=== PATIENT | male | born 2005 | race Caucasian/White ===

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

== ENCOUNTER 2023-02-21 21:48 | Emergency (ER) | payer OTHER ==
--- OUTSIDE RECORDS SUMMARY | 2023-02-21 22:28 | XMS REPORT | Continuity of Care Document ---
:2005 Author Organization [facility] t Address [address] [place] [address]. [address] [place] [address] Care Team Providers Name Role Phone Nikita Karly Primary Care Physician CHERISE MAURICE Attending Clinician Unavailable CHERISE MAURICE Attending Clinician Unavailable JOSE CHRISTOPHER Attending Clinician Unavailable BARRIE MALHOTRA Attending Clinician Unavailable YANCI MICHAEL Attending Clinician Unavailable YANCI MICHAEL Attending Clinician Unavailable Jakob Mcfarland DO Attending Clinician Christiano Priest MD Attending Clinician Barrie Plascencia Attending Clinician Yanci Michael DO Attending Clinician ARSALAN GRANT Attending Clinician Unavailable Arsalan Grant MD Attending Clinician Nichol ADEN, Chelseashalom Attending Clinician SACHIN VILLELA Attending Clinician Unavailable Sachin Vital Attending Clinician HANNAH VENTURA Attending Clinician Unavailable Hannah Ventura MD Attending Clinician Doctor Unassigned, Aline Attending Clinician Unavailable Pob, Adc Lab Main Attending Clinician Unavailable Sarbjit Kee MD Attending Clinician SURY DSOUZA Attending Clinician Unavailable Sury Shirley S Attending Clinician Jose Christopher MD S Attending Clinician CHRISTIANO PRIEST Attending Clinician Unavailable TYRON NUÑEZ Attending Clinician Unavailable Tyron Nuñez DO Attending Clinician Pankaj Garrett MD Attending Clinician PANKAJ GARRETT Attending Clinician Unavailable ANJALI WISDOM Attending Clinician Unavailable Anjali Wisdom PA-C Attending Clinician Wendy Anand Attending Clinician 1, Gal [employer] Attending Clinician Unavailable Angel Mar, Fadumo Orozco Attending Clinician Nano Cook PT Attending Clinician Unavailable Beena Ramirez MD Attending Clinician BEENA RAMIREZ Attending Clinician Unavailable Colleen VARMA Attending Clinician Unavailable Colleen Maddox Attending Clinician [facility] Attending Clinician Unavailable Parrish Rosenberg MD Attending Clinician Sheng Vasquez MD Attending Clinician SHENG VASQUEZ Attending Clinician Unavailable MG FRYE Attending Clinician Unavailable MG FRYE Attending Clinician Unavailable Yong Strauss RN, Marry Attending Clinician Unavailable PITA MALHOTRA Attending Clinician Unavailable Pita Malhotra MD Attending Clinician Lary HARE, Jose Carlos Lozada Attending Clinician Unavailable RUBEN BELCHER Attending Clinician Unavailable Ruben Mcknight Attending Clinician HANK OSHEA Attending Clinician Unavailable SHRUTHI SANTIAGO Attending Clinician Unavailable YAMIL DE LEON Attending Clinician Unavailable Estefania VIRAMONTES MD, Steve Quinn Attending Clinician [phone] ROBERT GLORIA Attending Clinician Unavailable Robert Gloria MD Attending Clinician JUNIOR LEAHY Attending Clinician Unavailable MEGHAN ROSARIO Attending Clinician Unavailable Meghan Rosario MD Attending Clinician Junior Leahy MD Attending Clinician Felix Morelos MD Attending Clinician [phone] Zana Thompson MD Attending Clinician Nurse, Namrata Moyer Attending Clinician Unavailable CHERISE MAURICE Admitting Clinician Unavailable ARSALAN GRANT Admitting Clinician Unavailable HANNAH VENTURA Admitting Clinician Unavailable Hannah Ventura MD Admitting Clinician [facility] Admitting Clinician Unavailable JOSE CHRISTOPHER Admitting Clinician Unavailable TYRON NUÑEZ Admitting Clinician Unavailable CHRISTIANO PRIEST Admitting Clinician Unavailable Colleen VARMA Admitting Clinician Unavailable MG FRYE Admitting Clinician Unavailable PITA MALHOTRA Admitting Clinician Unavailable RUBEN BELCHER Admitting Clinician Unavailable ROBERT GLORIA Admitting Clinician Unavailable MEGHAN ROSARIO Admitting Clinician Unavailable Payers Payer Name Policy Type Policy Number Effective Date Expiration Date Roderick [employer] [id number] 2022 KIDS 00:00:00 [facility] ST[facility] KIDS [id number] 2022 00:00:00 Problems Condition Condition Condition Status Onset Resolution Last Treating Co mments Source Name Details Category Date Date Treatment Clinician Date Palpitatio Palpitatio Disease Active U nivers ns ns - ity of 00:00: [place] [address] Medical Branch Syncope Syncope Disease Active Univers and and 01-28 ity of collapse collapse 00:00: [address] Abnormal Abnormal Disease Active Last [facility] liver liver 04-10 Assessmen [place] enzymes enzymes 00:00: t & Plan: Medic al [address] [place] [address] g of this note might be different [...] [facility] 25.0-29.[facility] 25.0-29.9) 00:00: t & Plan: [address] g of this note might be different from the original. Body mass index is 27.49 kg/m2. We discussed the importanc e of weight loss with a low carbohydr ate, high protein diet. 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 9-16 it y of e mood e mood 00:00: [place] dysregulat dysregulat 00 Me dical ion ion Branch disorder) disorder) 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 00:: [place] [address] Medical Branch Irritabili Irritabili Disease Active U nivers ty ty 1-11 ity of 00:00: [place] 00 Medical Branch 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 00:00: [place] arteriosus arteriosus 00 Me dical ) ) Branch Medication Medication Disease Active Overview : Univers management management 11-09 Formattin ity of 00:00: g of this 00 note Medical might be Branch different [...] (had seizure like activity) D/c strattera (stomacha ches)10 3-14 Restart Risperdal .25 mg BID and [...] to 100 mg qHS for morning groggines -15 Decrease dose of Cyprohept adine (either half [...] issues resolve with above, do not start Finndy87- 12-15 Hold zoloft; stop Buspar: possible tachycard [id number] 5 Restart Buspar 7.5 BID (Heart rate no better off it and anxiety worse) Trial reduction Risperida l to 1/2 of .25mg BID Trial Remeron 15mg HS Trial remeron 15mg [id number] 5 Raise Risperdal back to .25mg BID [...] Remeron 15mg Continue Lexapro 30mg Continue Kapvay 0.7di5-07 Increase zoloft to 50mg after school Decrease lexapro to 20mg 016 Stop Lexapro 20 mg Increase Abilify to 10 mg daily Increase Buspar to 15 mg BID Increase Kapvay to 0.1-0.2 mg QHS 02/12/16 Start amantidin e 100mg BID Stop abilify 10mg04/29 Move Risperdal 0.25 mg dose up to give at [id number] 06-24-16 Increase Risperdas l to .5mg BID 7 Increase Amantadin e to 15ml BID (not done last time) Increase Risperdal to .75 BID Reduce abilify to [id number] Amantidin e 150mg BID Increase Zoloft to [...] different from the original. ICD10 Diagnosis Term Disaster Recovery Specialist Utility Adj.dis.mi Adj.dis.mi Disease Active U nivers [...] Attention Disease Active Overview: Univers deficit deficit 16 Formattin ity o f hyperactiv hyperactiv 00:00: g of this [place] ity ity 00 note Medical disorder disorder might be Bran ch (ADHD) (ADHD) different from the original. ICD10 Diagnosis Term Disaster Recovery Specialist Utility Pain in Pain in Disease Active [...] Branch Other Other Disease Active Overview: Wil s specified specified 7- Formattin i ty of delay in delay in 00:00: g of this [place] as developmen developmen 00 note Me dical t t might be Branch different from the original. clumsy Other Other Disease Active Overview: Wil linda problems problems 01-25 Formattin ity of related [...] different from the original. ICD10 Diagnosis Term Disaster Recovery Specialist Utility Asthma Asthma Disease Active Overview: Wil s 01-18 Formattin ity of 00:00: g of this [place] 00 note Medical might be Branch different from the original. Mild persistan tICD10 Diagnosis Term Disaster Recovery Specialist Utility Allergic Allergic Disease Active Overview: Un glen rhinitis rhinitis 01-18 Formattin ity of 00:00: g of this [place] 00 note Medical might be Branch different from the original. ICD10 Diagnosis Term Disaster Recovery Specialist Utility Sleep Sleep Disease Active Overview: Univbritney s apnea apnea - Formattin ity of 00:00: g of this [place] 00 note Medical might be Branch different from the original. ICD10 Diagnosis Term Disaster Recovery Specialist Utility Sinusitis, Sinusitis, Disease Active Overview : Univers chronic chronic 10-13 Formattin ity o f 00:00: g of this [place] 00 note Medical might be Branch different from the original. ICD10 Diagnosis Term Disaster Recovery Specialist Utility Allergies, Adverse Reactions, Alerts Allergy Allergy Status Severity Reaction(s) Onset Inactive Treating Comm ents Source Name Type Date Date Clinician ADHESIVE Drug Active Rash Univers Class 5-19 ity of 00:00: [place] 00 Medical Branch Adhesive Propensi Active Rash ECG Univer s ty to 12-04 electrode ity of adverse 00:00: patches [place] reaction 00 with Medical s heart Branch monitor MONTEL[place] DRUG Active Other-Cmnt 2021-07 Univ ers AST INGREDI 1-10 ity of 00:00: [place] Medical [facility] [place] Propensi Active Other - See 2021-07 Aggressi v Univers ast ty to comments 1-10 e ity of adverse 00:00: [place] reaction 00 Medical s Branch VANCOMYC DRUG Active Low Rash Univers IN INGREDI 08-21 ity of 00:00: [place] [facility] Vancomyc Propensi Active Rash Allergy Unive rs in ty to 08-21 Type: ity of adverse 00:00: ?Medicati [place] reaction 00 onCurrent Medic al s Treatment Branch & Notes: Can have vancomyci n, but needs to be run over 2 hours with benadryl. Braxton/redn ess to face and neck; run over 2 hours [place] Allergy Active [facility]17 [facility] [place] Drug Active Other [facility] ast Allergy 8-17 reaction( [facility] 00:00: s): Medical 00 [facility]Barney Bailey on - did not tolerate ALBUTERO Allergy Active Low Palpitations 2020-[address] L 1-31 [facility] 00:[facility] Medical 00 Center ALBUTERO DRUG Active Med Palpitations 2020-0 Un glen L INGREDI 1- ity of 00:00: [place] 00 Medical Branch Albutero Drug Active Palpitations 2020-[address] [facility] Allergy 1-31 xopenex [facility] 00:[facility]: better Medical 00 Center Clindamy Propensi Active Shortness of 2018-07 Univers cecilia ty to Breath 0-07 ity of adverse 00:00: [place] reaction 00 Medical s Branch CLINDAMY DRUG Active Med Rash 2018-07 Univers CECILIA INGREDI 0-07 ity of 00:00: [place] 00 Medical Branch Predniso Propensi Active Rash Univer s ne ty to 5- ity of adverse 00:00: [place] reaction 00 Medical s Branch PREDNISO DRUG Active Rash Univers NE INGREDI 5-03 ity of 00:00: [place] 00 Medical Branch PREDNISO Allergy Active High Rash [facility] 4-20 [facility] Medical 00 Center Predniso Drug Active Rash [facility] ne Allergy 4-20 [facility] 00:[facility] Medical 00 Center SULFA Allergy Active High Anaphylaxis [facility] [...] Medica l ics) s to Branch drug Sulfa Drug Active Anaphylaxis Informed [facility] (Sulfona Allergy 8-28 by [facility] mide 00:00: parents Medical Antibiot 00 Center ics) CEFIXIME Allergy Active High Swelling [facility] 3-05 [facility] 00:[facility]: Medical 00 Center Cefixime Propensi Active Swelling Univ ers ty to 3-05 ity of adverse 00:00: [place] reaction 00 Medical s Branch CEFIXIME DRUG Active Swelling Univer s INGREDI 3-05 ity of 00:00: [place] 00 Medical Branch Cefixime Drug Active Swelling, Goes into [facility] Allergy Shortness Of 3-05 shock Ignacio es Breath 00:00: Medical 00 Center PEACH Allergy Active 2006-[address] [facility] 0-18 [facility] 00:[facility]: Medical 00 Center [place] Propensi Active Unknown - 2006-07 Unive rs ty to See comments 0-18 ity of adverse 00:00: [place] reaction 00 Medical s Branch PEACH DRUG Active Unknown-Cmnt 2006-07 Univ ers INGREDI 0-18 ity of 00:00: [place] 00 Medical Branch [place] Drug Active 2006-[address] Allergy 0-18 reaction( [facility] 00:00: s): Medical 00 Unknown - Center See comments Adhesive Propensi Active Unknown - 2006-0 Uni vers Tape ty to See comments 7-10 ity of adverse 00:00: [place] reaction 00 Medical s Branch ADHESIVE DRUG Active Unknown-Cmnt 2007-0 Un glen TAPE 7-10 ity of 00:00: [place] 00 Medical Branch ADHESIVE Allergy Active 2007-[address] TAPE 7-10 [facility] 00:[facility]: Medical 00 Center Adhesive Drug Active 2007-[address] Tape Allergy 7-10 reaction( [facility] 00:00: s): Medical 00 Unknown - Center See comments Latex Propensi Active 2004-0 Univers ty to 3-28 ity of adverse 00:00: [place] reaction 00 Medical s Branch Penicill Propensi Active 2004-0 Univer s ins ty to 3-28 ity of adverse 00:00: [place] reaction 00 Medical s Branch Pollen Propensi Active 2004-0 Univers Extracts ty to 3-28 ity of adverse 00:00: [place] reaction 00 Medical s Branch LATEX DRUG Active 2004-0 Univers INGREDI 3-28 ity of 00:00: [place] 00 Medical Branch PENICILL Drug Active 2004-0 Univers INS Class 3-28 ity of 00:00: [place] 00 Medical Branch POLLEN DRUG Active 2004-0 Univers EXTRACTS INGREDI 3-28 ity of 00:00: [place] 00 Medical Branch Penicill Propensi Active 2005-0 Univer s ins ty to 3-28 ity of adverse 00:00: [place] reaction 00 Medical s Branch PENICILL Allergy Active High Sob 2004-[address] [facility] INS 3-28 [facility] 00:00: Medical 00 Gy[place]um LATEX Allergy Active Low Rash 2004-[address] [facility] 3-28 [facility] 00:00: Medical 00 [place] Latex Drug Active Rash 2004-[address] Allergy 3-28 [facility] 00:00: Medical 00 [place] Penicill Drug Active Shortness Of 2004-[address] [facility] [address] ins Allergy Breath 3-28 shock [facility] 00:00: Medical 00 [place] Penicill Drug Active Shortness Of 2004-[address] ins Allergy Breath 3-28 shock [facility] 00:00: Medical 00 [place] Family History Family Member Diagnosis Comments Start Date Stop Date Source Natural father Depression [facility] Natural mother Asthma [facility] Natural mother Heart disease [facility] Natural mother Hypertension [facility] Social History Social Habit Start Date Stop Date Quantity Comments Source History SDOH [facility] Alcohol Comment Medical C enter Gender identity [facility]it y of [facility] Sexual orientation Univer sity of [facility] History SDOH [facility] Alcohol Std Drinks Medica l Center History SDOH [facility] Alcohol Binge Medical [address] [facility] History of Social 2023-01-18 2023-01-18 Univers ity of function 00:00:00 00:00:00 [facility] Exposure to 2022-12-10 2022-12-20 Not sure University of SARS-CoV-2 (event) 00:00:00 15:07:00 [facility] Tobacco use and 2022-04-08 2022-04-[address] Cristiane kes exposure 00:00:00 00:00:00 tobacco non-user [facility] Alcohol intake 2022-04-08 2022-04-[address] Ignacio es 00:00:00 00:00:00 non-drinker Medical Cente r (finding) History SDOH 2022-04-08 2022-04-[address] [facility] Alcohol Frequency 00:00:00 00:00:00 [facility] Sex Assigned At [address] Cristiane kes 00:00:00 00:00:00 [facility] Smoking Status Start Date Stop Date Source Never smoked tobacco [facility] Medications Ordered Filled Start Stop Current Ordering Indication Dosage Frequency Signature Comments Components Source Medication Medication Date Date Medication? Clinician (SIG) Name Name NaCl 0.9% 2022- No 1000mL at 999 Uni vers (NS) bolus 02-01 mL/hr, ity of infusion 06:45: 06:49 1,000 mL, [place] as 1,000 mL 00 :00 IV Medical Piggyback, Branch ONCE, 1 dose, On 02/01/23 at 0145, STAT iopamidol 2022- No [id number] 70mL 70 mL, U nivers (ISOVUE 02-01 Intravenou ity o f 370-500 mL) 06:45: 05:47 s, ONCE, 1 [place] injection 00 :00 dose, On Medica l 70 mL Mon Branch 02/01/23 at 0145, Routine IMITREX 5 0 Yes as needed Uni vers MG/ACTUATIO 7-13 for ity of N NASAL 15:08[facility] [address] [place] [address] Yes Apply to Un glen ne 0.1% in - affected ity o f aquaphor 15:08: area(s). [place] (COMPOUNDED 59 Medical ) ointment Branch ARIPiprazol Yes by Univer s e (ABILIFY 01-28 Intramuscu ity of [facility]) 15:08: lar route [place] as 300 mg sers 59 once every Me dical month. Branch cariprazine Yes 1{capsu Take 1 U nivers (VRAYLAR) 3 7- le} capsule by it y of mg Cap 15:08: mouth in [place] [address] the Medical morning Branch and 1 capsule in the evening. IMITREX 5 Yes as needed Uni vers MG/ACTUATIO 7- for ity of N NASAL 15:08: migraines [address] Yes Apply to Un glen ne 0.1% in 01-28 affected ity o f aquaphor 15:08: area(s). [place] (COMPOUNDED 59 Medical ) ointment Branch ARIPiprazol Yes by Team [employer] s e (ABILIFY 01-28 Intramuscu ity of [facility]) 15:08: lar route [place] as 300 mg sers 59 once every Me dical month. Branch cariprazine Yes 1{capsu Take 1 U nivers (VRAYLAR) 3 7-13 le} capsule by it y of mg Cap 15:08: mouth in [place] [address] the Medical morning Branch and 1 capsule in the evening. IMITREX 5 0 Yes as needed Uni vers MG/ACTUATIO 7-13 for ity of N NASAL 15:08: migraines [address] Yes Apply to Un glen ne 0.1% in 7-13 affected ity o f aquaphor 15:08: area(s). [place] (COMPOUNDED 59 Medical ) ointment Branch ARIPiprazol Yes by Univer s e (ABILIFY 7-13 [facility]cu [facility]y of [facility]) 15:08: lar route [place] as 300 mg sers 59 once every Me dical month. Branch cariprazine Yes 1{capsu Take 1 U nivers (VRAYLAR) 3 7-13 le} capsule by it y of mg Cap 15:08: mouth in [place] 59 the Medical morning Branch and 1 capsule in the evening. IMITREX 5 0 Yes as needed Uni vers MG/ACTUATIO 7-13 for ity of N NASAL 15:08: migraines [place] SPRY 59 Medical Branch [facility] Yes Apply to Un glen ne 0.1% in 7-13 affected ity o f aquaphor 15:08: area(s). [place] (COMPOUNDED 59 Medical ) ointment Branch ARIPiprazol Yes by Team [employer] art[employer] s e (ABILIFY 7 Intramuscu ity of [facility]) 15:08: lar route [place] as 300 mg sers 59 once every Me dical month. Branch cariprazine Yes 1{capsu Take 1 U nivers (VRAYLAR) 3 7-13 le} capsule by it y of mg Cap 15:08: mouth in [place] 59 the Medical morning Branch and 1 capsule in the evening. IMITREX 5 0 Yes as needed Uni vers MG/ACTUATIO 713 for ity of N NASAL 15:08: migraines [place] SPRY 59 Medical Branch [facility] Yes Apply to Un glen ne 0.1% in 713 affected ity o f aquaphor 15:08: area(s). [place] (COMPOUNDED 59 Medical ) ointment Branch ARIPiprazol Yes by Univer s e (ABILIFY 7 Intramuscu ity of [facility]) 15:08: lar route [place] as 300 mg sers 59 once every Me dical month. Branch cariprazine Yes 1{capsu Take 1 U nivers (VRAYLAR) 3 7-13 le} capsule by it y of mg Cap 15:08: mouth in [place] 59 the Medical morning Branch and 1 capsule in the evening. IMITREX 5 2022-0 Yes as needed Uni vers MG/ACTUATIO 713 for ity of N NASAL 15:08: migraines [place] SPRY 59 Medical Branch [facility] Yes Apply to Un glen ne 0.1% in 7-13 affected ity o f aquaphor 15:08: area(s). [place] (COMPOUNDED 59 Medical ) ointment Branch ARIPiprazol Yes by Univer s e (ABILIFY 01-28 Intramuscu ity of [employer]) 15:08: lar route [place] as 300 mg sers 59 once every Me dical month. Branch cariprazine Yes 1{capsu Take 1 U nivers (VRAYLAR) 3 7-13 le} capsule by it y of mg Cap 15:08: mouth in [place] 59 the Medical morning Branch and 1 capsule in the evening. IMITREX 5 2022-0 Yes as needed Uni vers MG/ACTUATIO 7 for ity of N NASAL 15:08: migraines [place] SPRY 59 Medical Branch [facility] Yes Apply to Un glen ne 0.1% in 01-28 affected ity o f aquaphor 15:08: area(s). [place] (COMPOUNDED 59 Medical ) ointment Branch ARIPiprazol Yes by Univer s e (ABILIFY 01-28 Intramuscu ity of [employer]) 15:08: lar route [place] as 300 mg sers 59 once every Me dical month. Branch cariprazine Yes 1{capsu Take 1 U nivers (VRAYLAR) 3 7-13 le} capsule by it y of mg Cap 15:08: mouth in [place] 59 the Medical morning Branch and 1 capsule in the evening. IMITREX 5 2022-0 Yes as needed Uni vers MG/ACTUATIO 713 for ity of N NASAL 15:08: migraines [place] SPRY 59 Medical Branch [facility] Yes Apply to Un glen ne 0.1% in 713 affected ity o f aquaphor 15:08: area(s). [place] (COMPOUNDED 59 Medical ) ointment Branch ARIPiprazol 0 Yes by Univer s e (ABILIFY 7-13 Intramuscu ity of [employer]) 15:08: lar route [place] as 300 mg sers 59 once every Me dical month. Branch cariprazine Yes 1{capsu Take 1 U nivers (VRAYLAR) 3 7-13 le} capsule by it y of mg Cap 15:08: mouth in [place] 59 the Medical morning Branch and 1 capsule in the evening. IMITREX 5 0 Yes as needed Uni vers MG/ACTUATIO 7-13 for ity of N NASAL 15:08: migraines [place] SPRY 59 Medical Branch [facility] Yes Apply to Un glen ne 0.1% in 7-13 affected ity o f aquaphor 15:08: area(s). [place] (COMPOUNDED 59 Medical ) ointment Branch ARIPiprazol Yes by Team [employer] s e (ABILIFY 7 [facility]cu [facility]y of [facility]) 15:08: lar route [place] as 300 mg sers 59 once every Me dical month. Branch cariprazine Yes 1{capsu Take 1 U nivers (VRAYLAR) 3 7-13 le} capsule by it y of mg Cap 15:08: mouth in [place] 59 the Medical morning Branch and 1 capsule in the evening. IMITREX 5 0 Yes as needed Uni vers MG/ACTUATIO 713 for ity of N NASAL 15:08[facility] Yes Apply to Un glen ne 0.1% in 713 affected ity o f aquaphor 15:08: area(s). [place] (COMPOUNDED 59 Medical ) ointment Branch ARIPiprazol Yes by Univer s e (ABILIFY 713 Intramuscu ity of [employer]) 15:08: lar route [place] as 300 mg sers 59 once every Me dical month. Branch cariprazine Yes 1{capsu Take 1 U nivers (VRAYLAR) 3 7-13 le} capsule by it y of mg Cap 15:08: mouth in [place] 59 the Medical morning Branch and 1 capsule in the evening. IMITREX 5 0 Yes as needed Uni vers MG/ACTUATIO 7-13 for ity of N NASAL 15:08: migraines [place] [address] Medical Branch [facility] Yes Apply to Un glen ne 0.1% in 7-13 affected ity o f aquaphor 15:08: area(s). [place] (COMPOUNDED 59 Medical ) ointment Branch ARIPiprazol Yes by Univer s e (ABILIFY 7 Intramuscu ity of [employer]) 15:08: lar route [place] as 300 mg sers 59 once every Me dical month. Branch cariprazine Yes 1{capsu Take 1 U nivers (VRAYLAR) 3 7-13 le} capsule by it y of mg Cap 15:08: mouth in [place] [address] the Medical morning Branch and 1 capsule in the evening. IMITREX 5 2022-0 Yes as needed Uni vers MG/ACTUATIO 7-13 for ity of N NASAL 15:08: migraines [place] [address] Medical [facility] Yes Apply to Un glen ne 0.1% in 713 affected ity o f aquaphor 15:08: area(s). [place] (COMPOUNDED 59 Medical ) ointment Branch ARIPiprazol Yes by Univer s e (ABILIFY 01-28 [facility]cu [facility]y of [facility]) 15:08: lar route [place] as 300 mg sers 59 once every Me dical month. Branch cariprazine Yes 1{capsu Take 1 U nivers (VRAYLAR) 3 7-13 le} capsule by it y of mg Cap 15:08: mouth in [place] [address] the Medical morning Branch and 1 capsule in the evening. IMITREX 5 2022-0 Yes as needed Uni vers MG/ACTUATIO 7-13 for ity of N NASAL 15:08: migraines [place] [address] Medical Branch [facility] Yes Apply to Un glen ne 0.1% in 7-13 affected ity o f aquaphor 15:08: area(s). [place] (COMPOUNDED 59 Medical ) ointment Branch ARIPiprazol Yes by Univer s e (ABILIFY 01-28 Intramuscu ity of [employer]) 15:08: lar route [place] as 300 mg sers 59 once every Me dical month. Branch cariprazine Yes 1{capsu Take 1 U nivers (VRAYLAR) 3 7-13 le} capsule by it y of mg Cap 15:08: mouth in [place] 59 the Medical morning Branch and 1 capsule in the evening. IMITREX 5 2022-0 Yes as needed Uni vers MG/ACTUATIO 7-13 for ity of N NASAL 15:08: migraines [place] SPRY 59 Medical Branch [facility] Yes Apply to Un glen ne 0.1% in 713 affected ity o f aquaphor 15:08: area(s). [place] (COMPOUNDED 59 Medical ) ointment Branch ARIPiprazol Yes by Univer s e (ABILIFY 7 [facility]cu [facility]y of [facility]) 15:08: lar route [place] as 300 mg sers 59 once every Me dical month. Branch cariprazine Yes 1{capsu Take 1 U nivers (VRAYLAR) 3 713 le} capsule by it y of mg Cap 15:08: mouth in [place] 59 the Medical morning Branch and 1 capsule in the evening. IMITREX 5 0 Yes as needed Uni vers MG/ACTUATIO 7-13 for ity of N NASAL 15:08[facility] Yes Apply to [place] ne 0.1% in 01-28 affected ity o f aquaphor 15:08: area(s). [place] (COMPOUNDED 59 Medical ) ointment Branch ARIPiprazol Yes by Univer s e (ABILIFY 7 Intramuscu ity of MAINTENA) 15:08: lar route [place] 300 mg sers 59 once every Me dical month. Branch cariprazine Yes 1{capsu Take 1 U nivers (VRAYLAR) 3 7-13 le} capsule by it y of mg Cap 15:08: mouth in [place] 59 the Medical morning Branch and 1 capsule in the evening. IMITREX 5 0 Yes as needed Uni vers MG/ACTUATIO 7-13 for ity of N NASAL 15:08: migraines [place] SPRY 59 Medical Branch triamcinolo Yes Apply to [place] 0.1% in 01-28 affected ity o f aquaphor 15:08: area(s). [place] (COMPOUNDED 59 Medical ) ointment Branch ARIPiprazol Yes by Univer s e (ABILIFY 01-28 Intramuscu ity of MAINTENA) 15:08: lar route [place] 300 mg sers 59 once every Me dical month. Branch cariprazine Yes 1{capsu Take 1 U nivers (VRAYLAR) 3 01-28 le} capsule by it y of mg Cap 15:08: mouth in [place] 59 the Medical morning Branch and 1 capsule in the evening. levETIRAcet Yes [id number] 1000mg Take 10 mL Univers am (KEPPRA) 7-13 by mouth ity of 100 mg/mL 00:00: in the [place] oral 00 morning Medical solution and 10 mL Branch in the evening. levETIRAcet Yes [id number] 1000mg Take 10 mL Univers am (KEPPRA) 7-13 by mouth ity of 100 mg/mL 00:00: in the [place] oral 00 morning Medical solution and 10 mL Branch in the evening. metoprolol Yes [id number] 25mg Take 1 U nivers succinate 7-13 tablet by ity o f XL 25 mg 24 00:00: mouth in [place] hr tablet 00 the Medical morning. Branch levETIRAcet Yes [id number] 1000mg Take 10 mL [facility] am (KEPPRA) 7-13 by mouth ity of 100 mg/mL 00:00: in the [place] oral 00 morning Medical solution and 10 mL Branch in the evening. metoprolol 0 Yes [id number] 25mg Take 1 U nivers succinate 7-13 tablet by ity o f XL 25 mg 24 00:00: mouth in [place] hr tablet 00 the Medical morning. Branch levETIRAcet 0 Yes [id number] 1000mg Take 10 mL Univers am (KEPPRA) 7-13 by mouth ity of 100 mg/mL 00:00: in the [place] oral 00 morning Medical solution and 10 mL Branch in the evening. metoprolol 3-0 Yes [id number] 25mg Take 1 U nivers succinate 7-13 tablet by ity o f XL 25 mg 24 00:00: mouth in [place] hr tablet 00 the Medical morning. Branch levETIRAcet 3-0 Yes [id number] 1000mg Take 10 mL Univers am (KEPPRA) 7-13 by mouth ity of 100 mg/mL 00:00: in the [place] oral 00 morning Medical solution and 10 mL Branch in the evening. metoprolol 3-0 Yes [id number] 25mg Take 1 U nivers succinate 7-13 tablet by ity o f XL 25 mg 24 00:00: mouth in [place] hr tablet 00 the Medical morning. Branch levETIRAcet 2022-0 Yes [id number] 1000mg Take 10 mL Univers am (KEPPRA) 7-13 by mouth ity of 100 mg/mL 00:00: in the [place] oral 00 morning Medical solution and 10 mL Branch in the evening. metoprolol 2022-0 Yes [id number] 25mg Take 1 U nivers succinate 7-13 tablet by ity o f XL 25 mg 24 00:00: mouth in [place] hr tablet 00 the Medical morning. Branch levETIRAcet 3-0 Yes [id number] 1000mg Take 10 mL Univers am (KEPPRA) 7-13 by mouth ity of 100 mg/mL 00:00: in the [place] oral 00 morning Medical solution and 10 mL Branch in the evening. metoprolol 3-0 Yes [id number] 25mg Take 1 U nivers succinate 7-13 tablet by ity o f XL 25 mg 24 00:00: mouth in [place] hr tablet 00 the Medical morning. Branch levETIRAcet 3-0 Yes [id number] 1000mg Take 10 mL Univers am (KEPPRA) 7-13 by mouth ity of 100 mg/mL 00:00: in the [place] oral 00 morning Medical solution and 10 mL Branch in the evening. metoprolol 3-0 Yes [id number] 25mg Take 1 U nivers succinate 7-13 tablet by ity o f XL 25 mg 24 00:00: mouth in [place] hr tablet 00 the Medical morning. Branch levETIRAcet 2023-0 Yes [id number] 1000mg Take 10 mL Univers am (KEPPRA) 7-13 by mouth ity of 100 mg/mL 00:00: in the [place] oral 00 morning Medical solution and 10 mL Branch in the evening. metoprolol 2022-0 Yes [id number] 25mg Take 1 U nivers succinate 7-13 tablet by ity o f XL 25 mg 24 00:00: mouth in [place] hr tablet 00 the Medical morning. Branch levETIRAcet 2022-0 Yes [id number] 1000mg Take 10 mL Univers am (KEPPRA) 7-13 by mouth ity of 100 mg/mL 00:00: in the [place] oral 00 morning Medical solution and 10 mL Branch in the evening. metoprolol 2022-0 Yes [id number] 25mg Take 1 U nivers succinate 7-13 tablet by ity o f XL 25 mg 24 00:00: mouth in [place] hr tablet 00 the Medical morning. Branch levETIRAcet 2022-0 Yes [id number] 1000mg Take 10 mL Univers am (KEPPRA) 7-13 by mouth ity of 100 mg/mL 00:00: in the [place] oral 00 morning Medical solution and 10 mL Branch in the evening. metoprolol 2022-0 Yes [id number] 25mg Take 1 U nivers succinate 7-13 tablet by ity o f XL 25 mg 24 00:00: mouth in [place] hr tablet 00 the Medical morning. Branch levETIRAcet 2022-0 Yes [id number] 1000mg Take 10 mL [facility] am (KEPPRA) 7-13 by mouth ity of 100 mg/mL 00:00: in the [place] oral 00 morning Medical solution and 10 mL Branch in the evening. metoprolol 2022-0 Yes [id number] 25mg Take 1 U nivers succinate 7-13 tablet by ity o f XL 25 mg 24 00:00: mouth in [place] hr tablet 00 the Medical morning. Branch levETIRAcet 2022-0 Yes [id number] 1000mg Take 10 mL [facility] am (KEPPRA) 7-13 by mouth ity of 100 mg/mL 00:00: in the [place] oral 00 morning Medical solution and 10 mL Branch in the evening. metoprolol 3-0 Yes [id number] 25mg Take 1 U nivers succinate 7-13 tablet by ity o f XL 25 mg 24 00:00: mouth in [place] hr tablet 00 the Medical morning. Branch levETIRAcet 2022-0 Yes [id number] 1000mg Take 10 mL Univers am (KEPPRA) 7-13 by mouth ity of 100 mg/mL 00:00: in the [place] oral 00 morning Medical solution and 10 mL Branch in the evening. metoprolol 2022-0 Yes [id number] 25mg Take 1 U nivers succinate 7-13 tablet by ity o f XL 25 mg 24 00:00: mouth in [place] hr tablet 00 the Medical morning. Branch levETIRAcet 2022-0 Yes [id number] 1000mg Take 10 mL Univers am (KEPPRA) 7-13 by mouth ity of 100 mg/mL 00:00: in the [place] oral 00 morning Medical solution and 10 mL Branch in the evening. metoprolol 2022-0 Yes [id number] 25mg Take 1 U nivers succinate 7-13 tablet by ity o f XL 25 mg 24 00:00: mouth in [place] hr tablet 00 the Medical morning. Branch levETIRAcet 2022-0 Yes [id number] 1000mg Take 10 mL Univers am (KEPPRA) 7-13 by mouth ity of 100 mg/mL 00:00: in the [place] oral 00 morning Medical solution and 10 mL Branch in the evening. metoprolol 2022-0 Yes [id number] 25mg Take 1 U nivers succinate 7-13 tablet by ity o f XL 25 mg 24 00:00: mouth in [place] hr tablet 00 the Medical morning. Branch levETIRAcet 2022-0 Yes [id number] 1000mg Take 10 mL Univers am (KEPPRA) 7-13 by mouth ity of 100 mg/mL 00:00: in the [place] oral 00 morning Medical solution and 10 mL Branch in the evening. metoprolol 2022-0 Yes [id number] 25mg Take 1 U nivers succinate 7-13 tablet by ity o f XL 25 mg 24 00:00: mouth in [place] hr tablet 00 the Medical morning. Branch ketorolac 2022-0 2022- No 60mg 60 mg, Unive rs (TORADOL) 01-21 07-06 Intramuscu ity of injection 04:00: 03:39 lar, ONCE, [place] 60 mg 00 :00 1 dose, On Medical Wed01/20/23 Branch at 2300, LESLIE HYDROcodone 2022-0 2022- No 1{tbl} 1 tablet, Univers -acetaminop 01-18 Oral, ity of hen (NORCO 15:00: 17:33 ONCE, 1 [place] 5) 5-325 mg 00 :00 dose, On Medi cherie tablet 1 Wed01/18/23 Branc h tablet at 1000, Routine, PACU HYDROcodone 2022-0 2023- No 1{tbl} 1 tablet, Univers -acetaminop 01-18 Oral, ity of hen (NORCO 15:00: 17:33 ONCE, 1 [place] as 5) 5-325 mg 00 :00 dose, On Medi cherie tablet 1 Wed01/18/23 Branc h tablet at 1000, Routine, PACU HYDROmorphO 2022-0 Yes .2mg 0.2 mg, Uni vers ne 01-18 Slow IV ity of (DILAUDID) 14:56: Push, [place] injection 40 Q5MIN PRN, Medi cherie 0.2 mg 10 doses, Branch Starting on Wed01/18/23 at 0956, Until Discontinu ed, Routine, Pain (scale 7-10), PACU
Us e approved by (Faculty): PACU USE -ANESTHESI A SERVICE-HY DROMORPHON E INJECTIONS FENTanyl PF 2022-0 Yes 25ug 25 mcg, Uni vers (SUBLIMAZE 01-18 Slow IV ity of (PF)) 14:56: Push, [place] injection 40 Q5MIN PRN, Medi cherie 25 mcg 4 doses, Branch Starting on Wed01/18/23 at 0956, Until Discontinu ed, Routine, Pain (scale 4-6), PACU ondansetron 2022-0 Yes 4mg 4 mg, Slow Univers (ZOFRAN 01-18 IV Push, ity of (PF)) 14:56: PRN, 1 [place] injection 4 40 dose, Medical mg Starting Branch on Wed01/18/23 at 0956, Until Discontinu ed, Routine, Nausea and Vomiting (N/V), PACU HYDROmorphO 2022-0 2022- No .2mg 0.2 mg, [place] ne 01-18 Slow IV ity of (DILAUDID) 14:56: 20:17 Push, [place] injection 40 :01 Q5MIN PRN, Medi cherie 0.2 mg 10 doses, Branch Starting on Wed01/18/23 at 0956, Until Wed01/18/23 at 1517, Routine, Pain (scale 7-10), PACU
Us e approved by (Faculty): PACU USE -ANESTHESI A SERVICE-HY DROMORPHON E INJECTIONS FENTanyl PF 2022- No 25ug 25 mcg, Un [place]en (SUBLIMAZE 01-18 Slow IV ity o f (PF)) 14:56: 20:17 Push, [place] injection 40 :01 Q5MIN PRN, Medi cherie 25 mcg 4 doses, Branch Starting on Wed01/18/23 at 0956, Until Wed01/18/23 at 1517, Routine, Pain (scale 4-6), PACU ondansetron 2022- No 4mg 4 mg, Slow Univers (ZOFRAN 01-18 IV Push, ity of (PF)) 14:56: 20:17 PRN, 1 [place] injection 4 40 :01 dose, Medical mg Starting Branch on Wed01/18/23 at 0956, Until Wed01/18/23 at 1517, Routine, Nausea and Vomiting (N/V), PACU IMITREX 5 Yes as needed Uni vers MG/ACTUATIO 01-18 for ity of N NASAL 13:17: migraines [place] SPRY 01 Medical Branch triamcinolo Yes Apply to [place] 0.1% in 01-18 affected ity o f aquaphor 13:17: area(s). [place] (COMPOUNDED Medical ) ointment Branch ARIPiprazol Yes by Univbritney s e (ABILIFY 01-18 Intramuscu ity of MAINTENA) 13:17: lar route [place] as 300 mg sers once every Me dical month. Branch cariprazine Yes 1{capsu Take 1 U nivers (VRAYLAR) 3 01-18 le} capsule by it y of mg Cap 13:17: mouth in [place] the Medical morning Branch and 1 capsule in the evening. IMITREX 5 0 Yes as needed Uni vers MG/ACTUATIO 7 for ity of N NASAL 13:17[facility] Yes Apply to [place] 0.1% in 01-18 affected ity o f aquaphor 13:17: area(s). [place] (COMPOUNDED Medical ) ointment Branch ARIPiprazol Yes by [employer] e (ABILIFY 01-18 Intramuscu ity of [facility]) 13:17: lar route [place] as 300 mg sers 01 once every Me dical month. Branch cariprazine Yes 1{capsu Take 1 U nivers (VRAYLAR) 3 7-03 le} capsule by it y of mg Cap 13:17: mouth in [place] the Medical morning Branch and 1 capsule in the evening. IMITREX 5 Yes as needed Uni vers MG/ACTUATIO 01-18 for ity of N NASAL 13:17: [facility] Yes Apply to [place] 0.1% in 01-18 affected ity o f aquaphor 13:17: area(s). [place] (COMPOUNDED Medical ) ointment Branch ARIPiprazol Yes by [employer] (ABILIFY 01-18 Intramuscu ity of [facility]) 13:17: lar route [place] as 300 mg sers 01 once every Me dical month. Branch cariprazine Yes 1{capsu Take 1 U nivers (VRAYLAR) 3 7-03 le} capsule by it y of mg Cap 13:17: mouth in [place] the Medical morning Branch and 1 capsule in the evening. IMITREX 5 Yes as needed Uni vers MG/ACTUATIO 7 for ity of N NASAL 13:17: [facility] Yes Apply to [place] 0.1% in 01-18 affected ity o f aquaphor 13:17: area(s). [place] (COMPOUNDED Medical ) ointment Branch ARIPiprazol Yes by Univer s e (ABILIFY 01-18 Intramuscu ity of MAINTENA) 13:17: lar route [place] as 300 mg sers 01 once every Me dical month. Branch cariprazine Yes 1{capsu Take 1 U nivers (VRAYLAR) 3 7- le} capsule by it y of mg Cap 13:17: mouth in [place] the Medical morning Branch and 1 capsule in the evening. IMITREX 5 Yes as needed Uni vers MG/ACTUATIO 01-18 for ity of N NASAL 13:17: migraines [place] [address] Medical Branch [facility] Yes Apply to [place] 0.1% in 01-18 affected ity o f aquaphor 13:17: area(s). [place] (COMPOUNDED Medical ) ointment Branch ARIPiprazol Yes by Univer s e (ABILIFY 01-18 [facility]) 13:17: lar route [place] 300 mg sers 01 once every Me dical month. Branch cariprazine Yes 1{capsu Take 1 U nivers (VRAYLAR) 3 01-18 le} capsule by it y of mg Cap 13:17: mouth in [place] the Medical morning Branch and 1 capsule in the evening. IMITREX 5 Yes as needed Uni vers MG/ACTUATIO 01-18 for ity of N NASAL 13:17: migraines [address] Yes Apply to [place] 0.1% in 01-18 affected ity o f aquaphor 13:17: area(s). [place] (COMPOUNDED Medical ) ointment Branch ARIPiprazol Yes by Univer s e (ABILIFY 01-18 [facility]) 13:17: lar route [place] as 300 mg sers 01 once every Me dical month. Branch IMITREX 5 Yes as needed Uni vers MG/ACTUATIO 01-18 for ity of N NASAL 13:17: [facility] Yes Apply to [place] 0.1% in 01-18 affected ity o f aquaphor 13:17: area(s). [place] (COMPOUNDED Medical ) ointment Branch ARIPiprazol Yes by Univer s e (ABILIFY 01-18 Intramuscu ity of [facility]) 13:17: lar route [place] 300 mg sers 01 once every Me dical month. Branch cariprazine Yes 1{capsu Take 1 U nivers (VRAYLAR) 3 7-03 le} capsule by it y of mg Cap 13:17: mouth in [place] the Medical morning Branch and 1 capsule in the evening. IMITREX 5 Yes as needed Uni vers MG/ACTUATIO 01-18 for ity of N NASAL 13:17: migraines [place] [address] Medical Branch [facility] Yes Apply to [place] 0.1% in 01-18 affected ity o f aquaphor 13:17: area(s). [place] (COMPOUNDED Medical ) ointment Branch ARIPiprazol Yes by [employer] (ABILIFY 01-18 Intramuscu ity of [facility]) 13:17: lar route [place] 300 mg sers 01 once every Me dical month. Branch cariprazine Yes 1{capsu Take 1 U nivers (VRAYLAR) 3 7- le} capsule by it y of mg Cap 13:17: mouth in [place] the Medical morning Branch and 1 capsule in the evening. traMADoL 50 2022- Yes [id number] 50mg Take 1 Uni vers mg tablet 01-18 tablet by ity of 00:00: 04:59 mouth [place] 00 :00 every 6 Medical (six) Branch hours as needed for Pain (scale 4-6) or Pain (scale 7-10) for up to 7 days. Indication s: acute pain traMADoL 50 0 2022- Yes [id number] 50mg Take 1 Uni vers mg tablet 01-18 tablet by ity of 00:00: 04:59 mouth [place] 00 :00 every 6 Medical (six) Branch hours as needed for Pain (scale 4-6) or Pain (scale 7-10) for up to 7 days. Indication s: acute pain traMADoL 50 2022- Yes [id number] 50mg Take 1 Uni vers mg tablet 01-18 07-11 tablet by ity of 00:00: 04:59 mouth [place] 00 :00 every 6 Medical (six) Branch hours as needed for Pain (scale 4-6) or Pain (scale 7-10) for up to 7 days. Indication s: acute pain IMITREX 5 Yes as needed Uni vers MG/ACTUATIO 6-29 for ity of N NASAL 12:08: migraines [address] Yes Apply to [place] 0.1% in 01-14 affected ity o f aquaphor 12:08: area(s). [place] ([address] ) ointment Branch ARIPiprazol Yes by [employer] (ABILIFY 01-14 Intramuscu ity of [facility]) 12:08: lar route [place] 300 mg sers 17 once every Me dical month. Branch cariprazine Yes 1{capsu Take 1 U nivers (VRAYLAR) 3 01-14 le} capsule by it y of mg Cap 12:08: mouth in [place] [address] the Medical morning Branch and 1 capsule in the evening. IMITREX 5 Yes as needed Uni vers MG/ACTUATIO 6 for ity of N NASAL 12:08: migraines [address] Yes Apply to [place] 0.1% in 01-14 affected ity o f aquaphor 12:08: area(s). [place] ([address]OUND[address] ) ointment Branch ARIPiprazol Yes by [email or web address] s e (ABILIFY 01-14 [facility]cu [facility]y of [facility]) 12:08: lar route [place] 300 mg sers 17 once every Me dical month. Branch cariprazine Yes 1{capsu Take 1 U nivers (VRAYLAR) 3 6-29 le} capsule by it y of mg Cap 12:08: mouth in [place] [address] the Medical morning Branch and 1 capsule in the evening. IMITREX 5 0 Yes as needed Uni vers MG/ACTUATIO 6-29 for ity of N NASAL 12:08: migraines [place] SPRY 17 Medical Branch triamcinolo Yes Apply to [place] 0.1% in 01-14 affected ity o f aquaphor 12:08: area(s). [place] (COMPOUNDED 17 Medical ) ointment Branch ARIPiprazol Yes by Univer s e (ABILIFY 01-14 Intramuscu ity of [employer]TENA) 12:08: lar route [place] 300 mg sers 17 once every Me dical month. Branch cariprazine Yes 1{capsu Take 1 U nivers (VRAYLAR) 3 01-14 le} capsule by it y of mg Cap 12:08: mouth in [place] 17 the Medical morning Branch and 1 capsule in the evening. traMADoL 50 0 Yes 50mg Take 1 Univ ers mg tablet 6-23 tablet by ity o f 00:00: mouth as [place] 00 needed. Medical Branch traMADoL 50 2022-0 Yes 50mg Take 1 Univ ers mg tablet 6-23 tablet by ity o f 00:00: mouth as [place] 00 needed. Medical Branch traMADoL 50 0 Yes 50mg Take 1 Univ ers mg tablet 6-23 tablet by ity o f 00:00: mouth as [place] 00 needed. Medical Branch traMADoL 50 2022-0 Yes 50mg Take 1 Univ ers mg tablet 6-23 tablet by ity o f 00:00: mouth as [place] 00 needed. Medical Branch traMADoL 50 2022-0 Yes 50mg Take 1 Univ ers mg tablet 6-23 tablet by ity o f 00:00: mouth as [place] 00 needed. Medical Branch traMADoL 50 2022-0 Yes 50mg Take 1 Univ ers mg tablet 6-23 tablet by ity o f 00:00: mouth as [place] 00 needed. Medical Branch traMADoL 50 2022-0 Yes 50mg Take 1 Univ ers mg tablet 6-23 tablet by ity o f 00:00: mouth as [place] 00 needed. Medical Branch traMADoL 50 2022-0 Yes 50mg Take 1 Univ ers mg tablet 6-23 tablet by ity o f 00:00: mouth as [place] 00 needed. Medical Branch traMADoL 50 2022-0 Yes 50mg Take 1 Univ ers mg tablet 6-23 tablet by ity o f 00:00: mouth as [place] 00 needed. Medical Branch traMADoL 50 3-0 Yes 50mg Take 1 Univ ers mg tablet 6-23 tablet by ity o f 00:00: mouth as [place] 00 needed. Medical Branch traMADoL 50 3-0 Yes 50mg Take 1 Univ ers mg tablet 6-23 tablet by ity o f 00:00: mouth as [place] 00 needed. Medical Branch traMADoL 50 3-0 Yes 50mg Take 1 Univ ers mg tablet 6-23 tablet by ity o f 00:00: mouth as [place] 00 needed. Medical Branch traMADoL 50 3-0 Yes 50mg Take 1 Univ ers mg tablet 6-23 tablet by ity o f 00:00: mouth as [place] 00 needed. Medical Branch traMADoL 50 3-0 Yes 50mg Take 1 Univ ers mg tablet 6-23 tablet by ity o f 00:00: mouth as [place] 00 needed. Medical Branch traMADoL 50 3-0 Yes 50mg Take 1 Univ ers mg tablet 6-23 tablet by ity o f 00:00: mouth as [place] 00 needed. Medical Branch traMADoL 50 2022-0 Yes 50mg Take 1 Univ ers mg tablet 6-23 tablet by ity o f 00:00: mouth as [place] 00 needed. Medical Branch traMADoL 50 3-0 Yes 50mg Take 1 Univ ers mg tablet 6-23 tablet by ity o f 00:00: mouth as [place] 00 needed. Medical Branch traMADoL 50 3-0 Yes 50mg Take 1 Univ ers mg tablet 6-23 tablet by ity o f 00:00: mouth as [place] 00 needed. Medical Branch traMADoL 50 3-0 Yes 50mg Take 1 Univ ers mg tablet 6-23 tablet by ity o f 00:00: mouth as [place] 00 needed. Medical Branch traMADoL 50 3-0 Yes 50mg Take 1 Univ ers mg tablet 6-23 tablet by ity o f 00:00: mouth as [place] 00 needed. Medical Branch traMADoL 50 3-0 Yes 50mg Take 1 Univ ers mg tablet 6-23 tablet by ity o f 00:00: mouth as [place] 00 needed. Medical Branch traMADoL 50 3-0 Yes 50mg Take 1 Univ ers mg tablet 6-23 tablet by ity o f 00:00: mouth as [place] 00 needed. Medical Branch traMADoL 50 3-0 Yes 50mg Take 1 Univ ers mg tablet 6-23 tablet by ity o f 00:00: mouth as [place] 00 needed. Medical Branch traMADoL 50 3-0 Yes 50mg Take 1 Univ ers mg tablet 6-23 tablet by ity o f 00:00: mouth as [place] 00 needed. Medical Branch acetaminoph 3-0 Yes 1{tbl} Take 1 [place] en-codeine 6-20 tablet by ity of 300-30 mg 00:00: mouth [place] tablet 00 needed. Medical Branch acetaminoph 3-0 Yes 1{tbl} Take 1 [place] en-codeine 6-20 tablet by ity of 300-30 mg 00:00: mouth [place] tablet 00 needed. Medical Branch acetaminoph 3-0 Yes 1{tbl} Take 1 [place] en-codeine 6-20 tablet by ity of 300-30 mg 00:00: mouth [place] tablet 00 needed. Medical Branch acetaminoph 3-0 Yes 1{tbl} Take 1 [place] en-codeine 6-20 tablet by ity of 300-30 mg 00:00: mouth [place] tablet 00 needed. Medical Branch acetaminoph 3-0 Yes 1{tbl} Take 1 [place] en-codeine 6-20 tablet by ity of 300-30 mg 00:00: mouth [place] tablet 00 needed. Medical Branch acetaminoph 3-0 Yes 1{tbl} Take 1 [place] en-codeine 6-20 tablet by ity of 300-30 mg 00:00: mouth [place] tablet 00 needed. Medical Branch acetaminoph 3-0 Yes 1{tbl} Take 1 [place] en-codeine 6-20 tablet by ity of 300-30 mg 00:00: mouth [place] tablet 00 needed. Medical Branch acetaminoph 2023-0 Yes 1{tbl} Take 1 [place] en-codeine 6-20 tablet by ity of 300-30 mg 00:00: mouth [place] tablet 00 needed. Medical Branch acetaminoph 3-0 Yes 1{tbl} Take 1 [place] en-codeine 6-20 tablet by ity of 300-30 mg 00:00: mouth [place] tablet 00 needed. Medical Branch acetaminoph 2023-0 Yes 1{tbl} Take 1 [place] en-codeine 6-20 tablet by ity of 300-30 mg 00:00: mouth [place] tablet 00 needed. Medical Branch acetaminoph 2023-0 Yes 1{tbl} Take 1 [place] en-codeine 6-20 tablet by ity of 300-30 mg 00:00: mouth [place] tablet 00 needed. Medical Branch acetaminoph 2023-0 Yes 1{tbl} Take 1 [place] en-codeine 6-20 tablet by ity of 300-30 mg 00:00: mouth [place] tablet 00 needed. Medical Branch acetaminoph 3-0 Yes 1{tbl} Take 1 [place] en-codeine 6-20 tablet by ity of 300-30 mg 00:00: mouth [place] tablet 00 needed. Medical Branch acetaminoph 3-0 Yes 1{tbl} Take 1 [place] en-codeine 6-20 tablet by ity of 300-30 mg 00:00: mouth [place] tablet 00 needed. Medical Branch acetaminoph 3-0 Yes 1{tbl} Take 1 [place] en-codeine 6-20 tablet by ity of 300-30 mg 00:00: mouth [place] tablet 00 needed. Medical Branch acetaminoph 3-0 Yes 1{tbl} Take 1 [place] en-codeine 6-20 tablet by ity of 300-30 mg 00:00: mouth [place] tablet 00 needed. Medical Branch acetaminoph 2023-0 Yes 1{tbl} Take 1 [place] en-codeine 6-20 tablet by ity of 300-30 mg 00:00: mouth [place] tablet 00 needed. Medical Branch acetaminoph 2023-0 Yes 1{tbl} Take 1 [place] en-codeine 6-20 tablet by ity of 300-30 mg 00:00: mouth [place] tablet 00 needed. Medical Branch acetaminoph 2023-0 Yes 1{tbl} Take 1 [place] en-codeine 6-20 tablet by ity of 300-30 mg 00:00: mouth [place] tablet 00 needed. Medical Branch acetaminoph 2023-0 Yes 1{tbl} Take 1 [place] en-codeine 6-20 tablet by ity of 300-30 mg 00:00: mouth [place] tablet 00 needed. Medical Branch acetaminoph 2022-0 Yes 1{tbl} Take 1 [place] en-codeine 6-20 tablet by ity of 300-30 mg 00:00: mouth [place] tablet 00 needed. Medical Branch acetaminoph 2022-0 Yes 1{tbl} Take 1 [place] en-codeine 6-20 tablet by ity of 300-30 mg 00:00: mouth [place] tablet 00 needed. Medical Branch acetaminoph 2022-0 Yes 1{tbl} Take 1 [place] en-codeine 6-20 tablet by ity of 300-30 mg 00:00: mouth [place] tablet 00 needed. Medical Branch acetaminoph Yes 1{tbl} Take 1 [place] en-codeine 6-20 tablet by ity of 300-30 mg 00:00: mouth [place] tablet 00 needed. Medical Branch hydrocortis Yes 1{appli Apply 1 [facility] one 2.5 % 6-16 cator} Applicator it y of cream 00:00: to area(s) [place] [address] as needed. Medical Branch nystatin Yes 1{dose} Apply 1 Uni vers 100,000 6-16 Dose to ity of unit/gram 00:00: area(s) in [facility] the Medical morning. Branch terbinafine Yes 1{dose} Apply 1 Univers HCL 1 % 6-16 Dose to ity of cream 00:00: area(s) in [place] the Medical morning. Branch hydrocortis Yes 1{appli Apply 1 Univers one 2.5 % 6-16 cator} Applicator it y of cream 00:00: to area(s) [place] [address] as needed. Medical Branch nystatin Yes 1{dose} Apply 1 Uni vers 100,000 6-16 Dose to ity of unit/gram 00:00: area(s) in [facility] the Medical morning. Branch terbinafine 2022- Yes 1{dose} Apply 1 Univers HCL 1 % 6-16 Dose to ity of cream 00:00: area(s) in [place] 00 the Medical morning. Branch hydrocortis 2022-0 Yes 1{appli Apply 1 Univers one 2.5 % 6-16 cator} Applicator it y of cream 00:00: to area(s) [place] 00 as needed. Medical Branch nystatin 2022-0 Yes 1{dose} Apply 1 [facility] vers 100,000 6-16 Dose to ity of unit/gram 00:00: area(s) in [place] cream 00 the Medical morning. Branch terbinafine 2022-0 Yes 1{dose} Apply 1 [facility] HCL 1 % 6-16 Dose to ity of cream 00:00: area(s) in [place] 00 the Medical morning. Branch hydrocortis 2022-0 Yes 1{appli Apply 1 [facility] one 2.5 % 6-16 cator} Applicator it y of cream 00:00: to area(s) [place] [address] as needed. Medical Branch nystatin 2022-0 Yes 1{dose} Apply 1 [facility] vers 100,000 6-16 Dose to ity of unit/gram 00:00: area(s) in [facility] cream 00 the Medical morning. Branch terbinafine 2022-0 Yes 1{dose} Apply 1 [facility] HCL 1 % 6-16 Dose to ity of cream 00:00: area(s) in [place] 00 the Medical morning. Branch hydrocortis 2022-0 Yes 1{appli Apply 1 [facility] one 2.5 % 6-16 cator} Applicator it y of cream 00:00: to area(s) [place] [address] as needed. Medical Branch nystatin 2022-0 Yes 1{dose} Apply 1 [facility] vers 100,000 6-16 Dose to ity of unit/gram 00:00: area(s) [place] cream 00 the Medical morning. Branch terbinafine 2022-0 Yes 1{dose} Apply 1 [facility] HCL 1 % 6-16 Dose to ity of cream 00:00: area(s) in [place] 00 the Medical morning. Branch hydrocortis 2022-0 Yes 1{appli Apply 1 [facility] one 2.5 % 6-16 cator} Applicator it y of cream 00:00: to area(s) [place] [address] as needed. Medical Branch nystatin 2022-0 Yes 1{dose} Apply 1 [facility] vers 100,000 6-16 Dose to ity of unit/gram 00:00: area(s) in [place] cream 00 the Medical morning. Branch terbinafine 2022-0 Yes 1{dose} Apply 1 [facility] HCL 1 % 6-16 Dose to ity of cream 00:00: area(s) in [place] 00 the Medical morning. Branch hydrocortis 2022-0 Yes 1{appli Apply 1 [facility] one 2.5 % 6-16 cator} Applicator it y of cream 00:00: to area(s) [place] [address] as needed. Medical Branch nystatin 3-0 Yes 1{dose} Apply 1 [facility] vers 100,000 6-16 Dose to ity of unit/gram 00:00: area(s) in [place] cream 00 the Medical morning. Branch terbinafine 2022-0 Yes 1{dose} Apply 1 [facility] HCL 1 % 6-16 Dose to ity of cream 00:00: area(s) in [place] 00 the Medical morning. Branch hydrocortis 2022-0 Yes 1{appli Apply 1 [facility] one 2.5 % 6-16 cator} Applicator it y of cream 00:00: to area(s) [place] [address] as needed. Medical Branch nystatin 2022-0 Yes 1{dose} Apply 1 [facility] vers 100,000 6-16 Dose to ity of unit/gram 00:00: area(s[place] cream 00 the Medical morning. Branch terbinafine 2022-0 Yes 1{dose} Apply 1 [facility] HCL 1 % 6-16 Dose to ity of cream 00:00: area(s) in [place] 00 the Medical morning. Branch hydrocortis 3-0 Yes 1{appli Apply 1 [facility] one 2.5 % 6-16 cator} Applicator it y of cream 00:00: to area(s) [place] [address] as needed. Medical Branch nystatin 3-0 Yes 1{dose} Apply 1 [facility] vers 100,000 6-16 Dose to ity of unit/gram 00:00: area(s) in [place] cream 00 the Medical morning. Branch terbinafine 3-0 Yes 1{dose} Apply 1 [facility] HCL 1 % 6-16 Dose to ity of cream 00:00: area(s) in [place] 00 the Medical morning. Branch hydrocortis 2023-0 Yes 1{appli Apply 1 [facility] one 2.5 % 6-16 cator} Applicator it y of cream 00:00: to area(s) [place] [address] as needed. Medical Branch nystatin 2022-0 Yes 1{dose} Apply 1 [facility] vers 100,000 6-16 Dose to ity of unit/gram 00:00: area(s) in [facility] 00 the Medical morning. Branch terbinafine 2022-0 Yes 1{dose} Apply 1 [facility] HCL 1 % 6-16 Dose to ity of cream 00:00: area(s) in [place] [address] the Medical morning. Branch hydrocortis 2022- Yes 1{appli Apply 1 [facility] one 2.5 % 6-16 cator} Applicator it y of cream 00:00: to area(s) [place] [address] as needed. Medical Branch nystatin 2022- Yes 1{dose} Apply 1 [facility] vers 100,000 6-16 Dose to ity of unit/gram 00:00: area(s) in [facility] 00 the Medical morning. Branch terbinafine 2022- Yes 1{dose} Apply 1 [facility] HCL 1 % 6-16 Dose to ity of cream 00:00: area(s) in [place] [address] the Medical morning. Branch hydrocortis 2022-0 Yes 1{appli Apply 1 [facility] one 2.5 % 6-16 cator} Applicator it y of cream 00:00: to area(s) [place] [address] as needed. Medical Branch nystatin 2022-0 Yes 1{dose} Apply 1 [facility] vers 100,000 6-16 Dose to ity of unit/gram 00:00: area(s) in [facility] cream 00 the Medical morning. Branch terbinafine 2022-0 Yes 1{dose} Apply 1 [facility] HCL 1 % 6-16 Dose to ity of cream 00:00: area(s) in [place] 00 the Medical morning. Branch hydrocortis 2022-0 Yes 1{appli Apply 1 [facility] one 2.5 % 6-16 cator} Applicator it y of cream 00:00: to area(s) [place] [address] as needed. Medical Branch nystatin 2022-0 Yes 1{dose} Apply 1 [facility] vers 100,000 6-16 Dose to ity of unit/gram 00:00: area(s) in [facility] cream 00 the Medical morning. Branch terbinafine 2022-0 Yes 1{dose} Apply 1 [facility] HCL 1 % 6-16 Dose to ity of cream 00:00: area(s) in [place] 00 the Medical morning. Branch hydrocortis 2022-0 Yes 1{appli Apply 1 [facility] one 2.5 % 6-16 cator} Applicator it y of cream 00:00: to area(s) [place] 00 as needed. Medical Branch nystatin 2022-0 Yes 1{dose} Apply 1 [facility] vers 100,000 6-16 Dose to ity of unit/gram 00:00: area(s) in [place] cream 00 the Medical morning. Branch terbinafine 2022-0 Yes 1{dose} Apply 1 [facility] HCL 1 % 6-16 Dose to ity of cream 00:00: area(s) in [place] 00 the Medical morning. Branch hydrocortis 2022-0 Yes 1{appli Apply 1 [facility] one 2.5 % 6-16 cator} Applicator it y of cream 00:00: to area(s) [place] [address] as needed. Medical Branch nystatin 2022-0 Yes 1{dose} Apply 1 [facility] vers 100,000 6-16 Dose to ity of unit/gram 00:00: area(s) in [place] cream 00 the Medical morning. Branch terbinafine 2022-0 Yes 1{dose} Apply 1 [facility] HCL 1 % 6-16 Dose to ity of cream 00:00: area(s) in [place] 00 the Medical morning. Branch hydrocortis 2022-0 Yes 1{appli Apply 1 [facility] one 2.5 % 6-16 cator} Applicator it y of cream 00:00: to area(s) [place] [address] as needed. Medical Branch nystatin 2022-0 Yes 1{dose} Apply 1 [facility] vers 100,000 6-16 Dose to ity of unit/gram 00:00: area(s) in [place] cream 00 the Medical morning. Branch terbinafine 2022-0 Yes 1{dose} Apply 1 [facility] HCL 1 % 6-16 Dose to ity of cream 00:00: area(s) in [place] 00 the Medical morning. Branch hydrocortis 2022-0 Yes 1{appli Apply 1 [facility] one 2.5 % 6-16 cator} Applicator it y of cream 00:00: to area(s) [place] [address] as needed. Medical Branch nystatin 3-0 Yes 1{dose} Apply 1 [facility] vers 100,000 6-16 Dose to ity of unit/gram 00:00: area(s) in [place] cream 00 the Medical morning. Branch terbinafine 3-0 Yes 1{dose} Apply 1 [facility] HCL 1 % 6-16 Dose to ity of cream 00:00: area(s) in [place] 00 the Medical morning. Branch hydrocortis 2022-0 Yes 1{appli Apply 1 [facility] one 2.5 % 6-16 cator} Applicator it y of cream 00:00: to area(s) [place] [address] as needed. Medical Branch nystatin 2022-0 Yes 1{dose} Apply 1 [facility] vers 100,000 6-16 Dose to ity of unit/gram 00:00: area(s) in [facility] cream 00 the Medical morning. Branch terbinafine 2022-0 Yes 1{dose} Apply 1 [facility] HCL 1 % 6-16 Dose to ity of cream 00:00: area(s) in [place] 00 the Medical morning. Branch hydrocortis 2022-0 Yes 1{appli Apply 1 [facility] one 2.5 % 6-16 cator} Applicator it y of cream 00:00: to area(s) [place] [address] as needed. Medical Branch nystatin 2022-0 Yes 1{dose} Apply 1 [facility] vers 100,000 6-16 Dose to ity of unit/gram 00:00: area(s) in [place] cream 00 the Medical morning. Branch terbinafine 3-0 Yes 1{dose} Apply 1 [facility] HCL 1 % 6-16 Dose to ity of cream 00:00: area(s) in [place] 00 the Medical morning. Branch hydrocortis 3-0 Yes 1{appli Apply 1 [facility] one 2.5 % 6-16 cator} Applicator it y of cream 00:00: to area(s) [place] [address] as needed. Medical Branch nystatin 3-0 Yes 1{dose} Apply 1 [facility] vers 100,000 6-16 Dose to ity of unit/gram 00:00: area(s) in [place] cream 00 the Medical morning. Branch terbinafine 2023-0 Yes 1{dose} Apply 1 [facility] HCL 1 % 6-16 Dose to ity of cream 00:00: area(s) in [place] 00 the Medical morning. Branch hydrocortis 2022-0 Yes 1{appli Apply 1 [facility] one 2.5 % 6-16 cator} Applicator it y of cream 00:00: to area(s) [place] 00 as needed. Medical Branch nystatin 2022-0 Yes 1{dose} Apply 1 [facility] vers 100,000 6-16 Dose to ity of unit/gram 00:00: area(s) in [place] cream 00 the Medical morning. Branch terbinafine 2022-0 Yes 1{dose} Apply 1 [facility] HCL 1 % 6-16 Dose to ity of cream 00:00: area(s) in [place] 00 the Medical morning. Branch hydrocortis 2022-0 Yes 1{appli Apply 1 [facility] one 2.5 % 6-16 cator} Applicator it y of cream 00:00: to area(s) [place] [address] as needed. Medical Branch nystatin 2022-0 Yes 1{dose} Apply 1 [facility] vers 100,000 6-16 Dose to ity of unit/gram 00:00: area(s) in [place] cream 00 the Medical morning. Branch terbinafine 2022-0 Yes 1{dose} Apply 1 [facility] HCL 1 % 6-16 Dose to ity of cream 00:00: area(s) in [place] 00 the Medical morning. Branch hydrocortis 2022-0 Yes 1{appli Apply 1 [facility] one 2.5 % 6-16 cator} Applicator it y of cream 00:00: to area(s) [place] 00 as needed. Medical Branch nystatin 2022-0 Yes 1{dose} Apply 1 [facility] vers 100,000 6-16 Dose to ity of unit/gram 00:00: area(s) in [place] cream 00 the Medical morning. Branch terbinafine 2022-0 Yes 1{dose} Apply 1 [facility] HCL 1 % 6-16 Dose to ity of cream 00:00: area(s) in [place] 00 the Medical morning. Branch hydrocortis 2022-0 Yes 1{appli Apply 1 [facility] one 2.5 % 6-16 cator} Applicator it y of cream 00:00: to area(s) [place] [address] as needed. Medical Branch nystatin 2022-0 Yes 1{dose} Apply 1 [facility] vers 100,000 6-16 Dose to ity of unit/gram 00:00: area(s) in [place] cream 00 the Medical morning. Branch terbinafine 2022-0 Yes 1{dose} Apply 1 [facility] HCL 1 % 6-16 Dose to ity of cream 00:00: area(s) in [place] 00 the Medical morning. Branch metoprolol 2022-0 Yes [id number] 25mg Take 1 U nivers succinate 6-06 tablet by ity o f XL 25 mg 24 00:00: mouth in [place] hr tablet 00 the Medical morning. Branch metoprolol 2022-0 Yes [id number] 25mg Take 1 U nivers succinate 6-06 tablet by ity o f XL 25 mg 24 00:00: mouth in [place] hr tablet 00 the Medical morning. Branch metoprolol 2022-0 Yes [id number] 25mg Take 1 U nivers succinate 6-06 tablet by ity o f XL 25 mg 24 00:00: mouth in [place] hr tablet 00 the Medical morning. Branch metoprolol 2022-0 Yes [id number] 25mg Take 1 U nivers succinate 6-06 tablet by ity o f XL 25 mg 24 00:00: mouth in [place] hr tablet 00 the Medical morning. Branch metoprolol 2022-0 Yes [id number] 25mg Take 1 U nivers succinate 6-06 tablet by ity o f XL 25 mg 24 00:00: mouth in [place] hr tablet 00 the Medical morning. Branch metoprolol 2022-0 Yes [id number] 25mg Take 1 U nivers succinate 6-06 tablet by ity o f XL 25 mg 24 00:00: mouth in [place] hr tablet 00 the Medical morning. Branch metoprolol 3-0 Yes [id number] 25mg Take 1 U nivers succinate 6-06 tablet by ity o f XL 25 mg 24 00:00: mouth in [place] hr tablet 00 the Medical morning. Branch metoprolol 3-0 Yes [id number] 25mg Take 1 U nivers succinate 6-06 tablet by ity o f XL 25 mg 24 00:00: mouth in [place] hr tablet 00 the Medical morning. Branch metoprolol 3-0 Yes [id number] 25mg Take 1 U nivers succinate 6-06 tablet by ity o f XL 25 mg 24 00:00: mouth in [place] hr tablet 00 the Medical morning. Branch metoprolol 3-0 Yes [id number] 25mg Take 1 U nivers succinate 6-06 tablet by ity o f XL 25 mg 24 00:00: mouth in [place] hr tablet 00 the Medical morning. Branch metoprolol 3-0 Yes [id number] 25mg Take 1 U nivers succinate 6-06 tablet by ity o f XL 25 mg 24 00:00: mouth in [place] hr tablet 00 the Medical morning. Branch metoprolol 3-0 Yes [id number] 25mg Take 1 U nivers succinate 6-06 tablet by ity o f XL 25 mg 24 00:00: mouth in [place] hr tablet 00 the Medical morning. Branch metoprolol 2022-0 Yes [id number] 25mg Take 1 U nivers succinate 6-06 tablet by ity o f XL 25 mg 24 00:00: mouth in [place] hr tablet 00 the Medical morning. Branch metoprolol 2022-0 Yes [id number] 25mg Take 1 U nivers succinate 6-06 tablet by ity o f XL 25 mg 24 00:00: mouth in [place] hr tablet 00 the Medical morning. Branch metoprolol 2022-0 Yes [id number] 25mg Take 1 U nivers succinate 6-06 tablet by ity o f XL 25 mg 24 00:00: mouth in [place] hr tablet 00 the Medical morning. Branch metoprolol 3-0 Yes [id number] 25mg Take 1 U nivers succinate 6-06 tablet by ity o f XL 25 mg 24 00:00: mouth in [place] hr tablet 00 the Medical morning. Branch metoprolol 3-0 Yes [id number] 25mg Take 1 U nivers succinate 6-06 tablet by ity o f XL 25 mg 24 00:00: mouth in [place] hr tablet 00 the Medical morning. Branch metoprolol 3-0 Yes [id number] 25mg Take 1 U nivers succinate 6-06 tablet by ity o f XL 25 mg 24 00:00: mouth in [place] hr tablet 00 the Medical morning. Branch metoprolol 2023-0 Yes [id number] 25mg Take 1 U nivers succinate 6-06 tablet by ity o f XL 25 mg 24 00:00: mouth in [place] hr tablet 00 the Medical morning. Branch metoprolol 2022-0 Yes [id number] 25mg Take 1 U nivers succinate 6-06 tablet by ity o f XL 25 mg 24 00:00: mouth in [place] hr tablet 00 the Medical morning. Branch metoprolol 2022-0 Yes [id number] 25mg Take 1 U nivers succinate 6-06 tablet by ity o f XL 25 mg 24 00:00: mouth in [place] hr tablet 00 the Medical morning. Branch metoprolol 2022-0 Yes [id number] 25mg Take 1 U nivers succinate 6-06 tablet by ity o f XL 25 mg 24 00:00: mouth in [place] hr tablet 00 the Medical morning. Branch metoprolol 2022-0 Yes [id number] 25mg Take 1 U nivers succinate 6-06 tablet by ity o f XL 25 mg 24 00:00: mouth in [place] hr tablet 00 the Medical morning. Branch metoprolol 2022-0 Yes [id number] 25mg Take 1 U nivers succinate 6-06 tablet by ity o f XL 25 mg 24 00:00: mouth in [place] hr tablet 00 the Medical morning. Branch metoprolol 2022-0 2022- No [id number] 25mg Take 1 [facility] succinate -12 23-13 tablet by ity of XL 25 mg 24 00:00: 00:00 mouth in [place] hr tablet 00 :00 the Medical morning. Branch metoprolol 2022-0 2022- No [id number] 25mg Take 1 [facility] succinate -12 23-13 tablet by ity of XL 25 mg 24 00:00: 00:00 mouth in [place] hr tablet 00 :00 the Medical morning. Branch metoprolol 2022-0 2022- No [id number] 25mg Take 1 [facility] succinate -12 23-13 tablet by ity of XL 25 mg 24 00:00: 00:00 mouth in [place] hr tablet 00 :00 the Medical morning. Branch cariprazine 2022-0 2022- No 1.5mg Take 1.5 [facility] (VRAYLAR) 6-05 06-05 mg by ity of 1.5 mg (1)- 08:42: 00:[place] 3 mg (6) 24 :00 every Medical CpPk morning. Branch cariprazine 2022-0 2022- No 1.5mg Take 1.5 [facility] (VRAYLAR) 6-05 06-05 mg by ity of 1.5 mg (1)- 08:42: 00:[place] 3 mg (6) 24 :00 every Medical CpPk morning. Branch cariprazine 2022-0 2022- No 1.5mg Take 1.5 [facility] (VRAYLAR) 6-05 06-05 mg by ity of 1.5 mg (1)- 08:42: 00:[place] 3 mg (6) 24 :00 every Medical CpPk morning. Branch SUMAtriptan 2022-0 Yes [id number] 100mg Take 1 [facility] 100 mg 6-05 tablet by ity of tablet 00:00: mouth as [place] 00 needed for Medical Migraine Branch for up to 9 doses. sumatripta n 100 mg, 1 tablet as needed for headache immediatel y at the onset of headache with big glass of water. May take another dose in 120 minutes after the first tablet if the headache does not reduce in intensity. Patient advised to take only 2 tablets in 24 hours and not more than 3 days in a week. SUMAtriptan 3-0 Yes [id number] 100mg Take 1 [facility] 100 mg 6-05 tablet by ity of tablet 00:00: mouth as [place] 00 needed for Medical Migraine Branch for up to 9 doses. sumatripta n 100 mg, 1 tablet as needed for headache immediatel y at the onset of headache with big glass of water. May take another dose in 120 minutes after the first tablet if the headache does not reduce in intensity. Patient advised to take only 2 tablets in 24 hours and not more than 3 days in a week. SUMAtriptan 2023-0 Yes [id number] 100mg Take 1 [facility] 100 mg 6-05 tablet by ity of tablet 00:00: mouth as [place] 00 needed for Medical Migraine Branch for up to 9 doses. sumatripta n 100 mg, 1 tablet as needed for headache immediatel y at the onset of headache with big glass of water. May take another dose in 120 minutes after the first tablet if the headache does not reduce in intensity. Patient advised to take only 2 tablets in 24 hours and not more than 3 days in a week. SUMAtriptan 2023-0 Yes [id number] 100mg Take 1 [facility] 100 mg 6-05 tablet by ity of tablet 00:00: mouth as [place] 00 needed for Medical Migraine Branch for up to 9 doses. sumatripta n 100 mg, 1 tablet as needed for headache immediatel y at the onset of headache with big glass of water. May take another dose in 120 minutes after the first tablet if the headache does not reduce in intensity. Patient advised to take only 2 tablets in 24 hours and not more than 3 days in a week. SUMAtriptan 2023-0 Yes [id number] 100mg Take 1 [facility] 100 mg 6-05 tablet by ity of tablet 00:00: mouth as [place] 00 needed for Medical Migraine Branch for up to 9 doses. sumatripta n 100 mg, 1 tablet as needed for headache immediatel y at the onset of headache with big glass of water. May take another dose in 120 minutes after the first tablet if the headache does not reduce in intensity. Patient advised to take only 2 tablets in 24 hours and not more than 3 days in a week. SUMAtriptan 2023-0 Yes [id number] 100mg Take 1 [facility] 100 mg 6-05 tablet by ity of tablet 00:00: mouth as [place] 00 needed for Medical Migraine Branch for up to 9 doses. sumatripta n 100 mg, 1 tablet as needed for headache immediatel y at the onset of headache with big glass of water. May take another dose in 120 minutes after the first tablet if the headache does not reduce in intensity. Patient advised to take only 2 tablets in 24 hours and not more than 3 days in a week. SUMAtriptan 2023-0 Yes [id number] 100mg Take 1 [facility] 100 mg 6-05 tablet by ity of tablet 00:00: mouth as [place] 00 needed for Medical Migraine Branch for up to 9 doses. sumatripta n 100 mg, 1 tablet as needed for headache immediatel y at the onset of headache with big glass of water. May take another dose in 120 minutes after the first tablet if the headache does not reduce in intensity. Patient advised to take only 2 tablets in 24 hours and not more than 3 days in a week. SUMAtriptan 2023-0 Yes [id number] 100mg Take 1 [facility] 100 mg 6-05 tablet by ity of tablet 00:00: mouth as [place] 00 needed for Medical Migraine Branch for up to 9 doses. sumatripta n 100 mg, 1 tablet as needed for headache immediatel y at the onset of headache with big glass of water. May take another dose in 120 minutes after the first tablet if the headache does not reduce in intensity. Patient advised to take only 2 tablets in 24 hours and not more than 3 days in a week. SUMAtriptan 2023-0 Yes [id number] 100mg Take 1 [facility] 100 mg 6-05 tablet by ity of tablet 00:00: mouth as [place] 00 needed for Medical Migraine Branch for up to 9 doses. sumatripta n 100 mg, 1 tablet as needed for headache immediatel y at the onset of headache with big glass of water. May take another dose in 120 minutes after the first tablet if the headache does not reduce in intensity. Patient advised to take only 2 tablets in 24 hours and not more than 3 days in a week. SUMAtriptan 2023-0 Yes [id number] 100mg Take 1 [facility] 100 mg 6-05 tablet by ity of tablet 00:00: mouth as [place] 00 needed for Medical Migraine Branch for up to 9 doses. sumatripta n 100 mg, 1 tablet as needed for headache immediatel y at the onset of headache with big glass of water. May take another dose in 120 minutes after the first tablet if the headache does not reduce in intensity. Patient advised to take only 2 tablets in 24 hours and not more than 3 days in a week. SUMAtriptan 2023-0 Yes [id number] 100mg Take 1 [facility] 100 mg 6-05 tablet by ity of tablet 00:00: mouth as [place] 00 needed for Medical Migraine Branch for up to 9 doses. sumatripta n 100 mg, 1 tablet as needed for headache immediatel y at the onset of headache with big glass of water. May take another dose in 120 minutes after the first tablet if the headache does not reduce in intensity. Patient advised to take only 2 tablets in 24 hours and not more than 3 days in a week. SUMAtriptan 2023-0 Yes [id number] 100mg Take 1 [facility] 100 mg 6-05 tablet by ity of tablet 00:00: mouth as [place] 00 needed for Medical Migraine Branch for up to 9 doses. sumatripta n 100 mg, 1 tablet as needed for headache immediatel y at the onset of headache with big glass of water. May take another dose in 120 minutes after the first tablet if the headache does not reduce in intensity. Patient advised to take only 2 tablets in 24 hours and not more than 3 days in a week. SUMAtriptan 2023-0 Yes [id number] 100mg Take 1 [facility] 100 mg 6-05 tablet by ity of tablet 00:00: mouth as [place] 00 needed for Medical Migraine Branch for up to 9 doses. sumatripta n 100 mg, 1 tablet as needed for headache immediatel y at the onset of headache with big glass of water. May take another dose in 120 minutes after the first tablet if the headache does not reduce in intensity. Patient advised to take only 2 tablets in 24 hours and not more than 3 days in a week. SUMAtriptan 2023-0 Yes [id number] 100mg Take 1 [facility] 100 mg 6-05 tablet by ity of tablet 00:00: mouth as [place] 00 needed for Medical Migraine Branch for up to 9 doses. sumatripta n 100 mg, 1 tablet as needed for headache immediatel y at the onset of headache with big glass of water. May take another dose in 120 minutes after the first tablet if the headache does not reduce in intensity. Patient advised to take only 2 tablets in 24 hours and not more than 3 days in a week. SUMAtriptan 2023-0 Yes [id number] 100mg Take 1 [facility] 100 mg 6-05 tablet by ity of tablet 00:00: mouth as [place] 00 needed for Medical Migraine Branch for up to 9 doses. sumatripta n 100 mg, 1 tablet as needed for headache immediatel y at the onset of headache with big glass of water. May take another dose in 120 minutes after the first tablet if the headache does not reduce in intensity. Patient advised to take only 2 tablets in 24 hours and not more than 3 days in a week. SUMAtriptan 2023-0 Yes [id number] 100mg Take 1 [facility] 100 mg 6-05 tablet by ity of tablet 00:00: mouth as [place] 00 needed for Medical Migraine Branch for up to 9 doses. sumatripta n 100 mg, 1 tablet as needed for headache immediatel y at the onset of headache with big glass of water. May take another dose in 120 minutes after the first tablet if the headache does not reduce in intensity. Patient advised to take only 2 tablets in 24 hours and not more than 3 days in a week. SUMAtriptan 2023-0 Yes [id number] 100mg Take 1 [facility] 100 mg 6-05 tablet by ity of tablet 00:00: mouth as [place] 00 needed for Medical Migraine Branch for up to 9 doses. sumatripta n 100 mg, 1 tablet as needed for headache immediatel y at the onset of headache with big glass of water. May take another dose in 120 minutes after the first tablet if the headache does not reduce in intensity. Patient advised to take only 2 tablets in 24 hours and not more than 3 days in a week. SUMAtriptan 2023-0 Yes [id number] 100mg Take 1 [facility] 100 mg 6-05 tablet by ity of tablet 00:00: mouth as [place] 00 needed for Medical Migraine Branch for up to 9 doses. sumatripta n 100 mg, 1 tablet as needed for headache immediatel y at the onset of headache with big glass of water. May take another dose in 120 minutes after the first tablet if the headache does not reduce in intensity. Patient advised to take only 2 tablets in 24 hours and not more than 3 days in a week. SUMAtriptan 2023-0 Yes [id number] 100mg Take 1 [facility] 100 mg 6-05 tablet by ity of tablet 00:00: mouth as [place] 00 needed for Medical Migraine Branch for up to 9 doses. sumatripta n 100 mg, 1 tablet as needed for headache immediatel y at the onset of headache with big glass of water. May take another dose in 120 minutes after the first tablet if the headache does not reduce in intensity. Patient advised to take only 2 tablets in 24 hours and not more than 3 days in a week. SUMAtriptan 2023-0 Yes [id number] 100mg Take 1 [facility] 100 mg 6-05 tablet by ity of tablet 00:00: mouth as [place] 00 needed for Medical Migraine Branch for up to 9 doses. sumatripta n 100 mg, 1 tablet as needed for headache immediatel y at the onset of headache with big glass of water. May take another dose in 120 minutes after the first tablet if the headache does not reduce in intensity. Patient advised to take only 2 tablets in 24 hours and not more than 3 days in a week. SUMAtriptan 2023-0 Yes [id number] 100mg Take 1 [facility] 100 mg 6-05 tablet by [facility] of tablet 00:00: mouth as [place] 00 needed for Medical Migraine Branch for up to 9 doses. sumatripta n 100 mg, 1 tablet as needed for headache immediatel y at the onset of headache with big glass of water. May take another dose in 120 minutes after the first tablet if the headache does not reduce in intensity. Patient advised to take only 2 tablets in 24 hours and not more than 3 days in a week. SUMAtriptan 2023-0 Yes [id number] 100mg Take 1 [facility] 100 mg 6-05 tablet by ity of tablet 00:00: mouth as [place] 00 needed for Medical Migraine Branch for up to 9 doses. sumatripta n 100 mg, 1 tablet as needed for headache immediatel y at the onset of headache with big glass of water. May take another dose in 120 minutes after the first tablet if the headache does not reduce in intensity. Patient advised to take only 2 tablets in 24 hours and not more than 3 days in a week. SUMAtriptan 2023-0 Yes [id number] 100mg Take 1 [facility] 100 mg 6-05 tablet by ity of tablet 00:00: mouth as [place] 00 needed for Medical Migraine Branch for up to 9 doses. sumatripta n 100 mg, 1 tablet as needed for headache immediatel y at the onset of headache with big glass of water. May take another dose in 120 minutes after the first tablet if the headache does not reduce in intensity. Patient advised to take only 2 tablets in 24 hours and not more than 3 days in a week. SUMAtriptan 2023-0 Yes [id number] 100mg Take 1 [facility] 100 mg 6-05 tablet by ity of tablet 00:00: mouth as [place] 00 needed for Medical Migraine Branch for up to 9 doses. sumatripta n 100 mg, 1 tablet as needed for headache immediatel y at the onset of headache with big glass of water. May take another dose in 120 minutes after the first tablet if the headache does not reduce in intensity. Patient advised to take only 2 tablets in 24 hours and not more than 3 days in a week. SUMAtriptan 2023-0 Yes [id number] 100mg Take 1 [facility] 100 mg 6-05 tablet by [facility] of tablet 00:00: mouth as [place] 00 needed for Medical Migraine Branch for up to 9 doses. sumatripta n 100 mg, 1 tablet as needed for headache immediatel y at the onset of headache with big glass of water. May take another dose in 120 minutes after the first tablet if the headache does not reduce in intensity. Patient advised to take only 2 tablets in 24 hours and not more than 3 days in a week. SUMAtriptan 2023-0 Yes [id number] 100mg Take 1 [facility] 100 mg 6-05 tablet by [facility] of tablet 00:00: mouth as [place] 00 needed for Medical Migraine [facility] for up to 9 doses. sumatripta n 100 mg, 1 tablet as needed for headache immediatel y at the onset of headache with big glass of water. May take another dose in 120 minutes after the first tablet if the headache does not reduce in intensity. Patient advised to take only 2 tablets in 24 hours and not more than 3 days in a week. SUMAtriptan 2023-0 Yes [id number] 100mg Take 1 [facility] 100 mg 6-05 tablet by [facility] of tablet 00:00: mouth as [place] 00 needed for Medical Migraine [facility] for up to 9 doses. sumatripta n 100 mg, 1 tablet as needed for headache immediatel y at the onset of headache with big glass of water. May take another dose in 120 minutes after the first tablet if the headache does not reduce in intensity. Patient advised to take only 2 tablets in 24 hours and not more than 3 days in a week. SUMAtriptan 2023-0 Yes [id number] 100mg Take 1 [facility] 100 mg 6-05 tablet by [facility] of tablet 00:00: mouth as [place] 00 needed for Medical Migraine Branch for up to 9 doses. sumatripta n 100 mg, 1 tablet as needed for headache immediatel y at the onset of headache with big glass of water. May take another dose in 120 minutes after the first tablet if the headache does not reduce in intensity. Patient advised to take only 2 tablets in 24 hours and not more than 3 days in a week. SUMAtriptan 2023-0 Yes [id number] 100mg Take 1 [facility] 100 mg 6-05 tablet by [facility] of tablet 00:00: mouth as [place] 00 needed for Medical Migraine [facility] for up to 9 doses. sumatripta n 100 mg, 1 tablet as needed for headache immediatel y at the onset of headache with big glass of water. May take another dose in 120 minutes after the first tablet if the headache does not reduce in intensity. Patient advised to take only 2 tablets in 24 hours and not more than 3 days in a week. SUMAtriptan 2023-0 Yes [id number] 100mg Take 1 [facility] 100 mg 6-05 tablet by it[facility] of tablet 00:00: mouth as [place] 00 needed for Medical Migraine [facility] for up to 9 doses. sumatripta n 100 mg, 1 tablet as needed for headache immediatel y at the onset of headache with big glass of water. May take another dose in 120 minutes after the first tablet if the headache does not reduce in intensity. Patient advised to take only 2 tablets in 24 hours and not more than 3 days in a week. SUMAtriptan 2023-0 Yes [id number] 100mg Take 1 [facility] 100 mg 6-05 tablet by it[facility] of tablet 00:00: mouth as [place] 00 needed for Medical Migraine [facility] for up to 9 doses. sumatripta n 100 mg, 1 tablet as needed for headache immediatel y at the onset of headache with big glass of water. May take another dose in 120 minutes after the first tablet if the headache does not reduce in intensity. Patient advised to take only 2 tablets in 24 hours and not more than 3 days in a week. SUMAtriptan 2023-0 Yes [id number] 100mg Take 1 [facility] 100 mg 6-05 tablet by [facility] of tablet 00:00: mouth as [place] 00 needed for Medical Migraine [facility] for up to 9 doses. sumatripta n 100 mg, 1 tablet as needed for headache immediatel y at the onset of headache with big glass of water. May take another dose in 120 minutes after the first tablet if the headache does not reduce in intensity. Patient advised to take only 2 tablets in 24 hours and not more than 3 days in a week. SUMAtriptan 2023-0 Yes [id number] 100mg Take 1 [facility] 100 mg 6-05 tablet by ity of tablet 00:00: mouth as [place] 00 needed for Medical Migraine [facility] for up to 9 doses. sumatripta n 100 mg, 1 tablet as needed for headache immediatel y at the onset of headache with big glass of water. May take another dose in 120 minutes after the first tablet if the headache does not reduce in intensity. Patient advised to take only 2 tablets in 24 hours and not more than 3 days in a week. SUMAtriptan 2023-0 Yes [id number] 100mg Take 1 [facility] 100 mg 6-05 tablet by [facility] of tablet 00:00: mouth as [place] 00 needed for Medical Migraine [facility] for up to 9 doses. sumatripta n 100 mg, 1 tablet as needed for headache immediatel y at the onset of headache with big glass of water. May take another dose in 120 minutes after the first tablet if the headache does not reduce in intensity. Patient advised to take only 2 tablets in 24 hours and not more than 3 days in a week. SUMAtriptan 2023-0 Yes [id number] 100mg Take 1 [facility] 100 mg 6-05 tablet by ity of tablet 00:00: mouth as [place] 00 needed for Medical Migraine [facility] for up to 9 doses. sumatripta n 100 mg, 1 tablet as needed for headache immediatel y at the onset of headache with big glass of water. May take another dose in 120 minutes after the first tablet if the headache does not reduce in intensity. Patient advised to take only 2 tablets in 24 hours and not more than 3 days in a week. SUMAtriptan 2023-0 Yes [id number] 100mg Take 1 [facility] 100 mg 6-05 tablet by ity of tablet 00:00: mouth as [place] 00 needed for Medical Migraine [facility] for up to 9 doses. sumatripta n 100 mg, 1 tablet as needed for headache immediatel y at the onset of headache with big glass of water. May take another dose in 120 minutes after the first tablet if the headache does not reduce in intensity. Patient advised to take only 2 tablets in 24 hours and not more than 3 days in a week. SUMAtriptan 2023-0 Yes [id number] 100mg Take 1 [facility] 100 mg 6-05 tablet by ity of tablet 00:00: mouth as [place] 00 needed for Medical Migraine [facility] for up to 9 doses. sumatripta n 100 mg, 1 tablet as needed for headache immediatel y at the onset of headache with big glass of water. May take another dose in 120 minutes after the first tablet if the headache does not reduce in intensity. Patient advised to take only 2 tablets in 24 hours and not more than 3 days in a week. SUMAtriptan 2023-0 Yes [id number] 100mg Take 1 [facility] 100 mg 6-05 tablet by ity of tablet 00:00: mouth as [place] 00 needed for Medical Migraine [facility] for up to 9 doses. sumatripta n 100 mg, 1 tablet as needed for headache immediatel y at the onset of headache with big glass of water. May take another dose in 120 minutes after the first tablet if the headache does not reduce in intensity. Patient advised to take only 2 tablets in 24 hours and not more than 3 days in a week. SUMAtriptan 2023-0 Yes [id number] 100mg Take 1 [facility] 100 mg 6-05 tablet by ity of tablet 00:00: mouth as [place] 00 needed for Medical Migraine [facility] for up to 9 doses. sumatripta n 100 mg, 1 tablet as needed for headache immediatel y at the onset of headache with big glass of water. May take another dose in 120 minutes after the first tablet if the headache does not reduce in intensity. Patient advised to take only 2 tablets in 24 hours and not more than 3 days in a week. SUMAtriptan 2023-0 Yes [id number] 100mg Take 1 [facility] 100 mg 6-05 tablet by ity of tablet 00:00: mouth as [place] 00 needed for Medical Migraine [facility] for up to 9 doses. sumatripta n 100 mg, 1 tablet as needed for headache immediatel y at the onset of headache with big glass of water. May take another dose in 120 minutes after the first tablet if the headache does not reduce in intensity. Patient advised to take only 2 tablets in 24 hours and not more than 3 days in a week. SUMAtriptan 2023-0 Yes [id number] 100mg Take 1 [facility] 100 mg 6-05 tablet by ity of tablet 00:00: mouth as [place] 00 needed for Medical Migraine [facility] for up to 9 doses. sumatripta n 100 mg, 1 tablet as needed for headache immediatel y at the onset of headache with big glass of water. May take another dose in 120 minutes after the first tablet if the headache does not reduce in intensity. Patient advised to take only 2 tablets in 24 hours and not more than 3 days in a week. SUMAtriptan 2023-0 Yes [id number] 100mg Take 1 [facility] 100 mg 6-05 tablet by ity of tablet 00:00: mouth as [place] 00 needed for Medical Migraine Branch for up to 9 doses. sumatripta n 100 mg, 1 tablet as needed for headache immediatel y at the onset of headache with big glass of water. May take another dose in 120 minutes after the first tablet if the headache does not reduce in intensity. Patient advised to take only 2 tablets in 24 hours and not more than 3 days in a week. benzonatate 2023-0 Yes [id number] 100mg Take 1 [facility] 100 mg 5-22 capsule by [facility] of capsule 00:00: mouth 3 [place] 00 (three) Medical times Branch daily as needed for Cough. benzonatate 2023-0 Yes [id number] 100mg Take 1 [facility] 100 mg 5-22 capsule by it[facility] of capsule 00:00: mouth 3 (three) Medical times Branch daily as needed for Cough. benzonatate 2023-0 Yes [id number] 100mg Take 1 [facility] 100 mg 5-22 capsule by it[facility] of capsule 00:00: mouth 3 00 (three) Medical times Branch daily as needed for Cough. benzonatate 2023-0 Yes [id number] 100mg Take 1 [facility] 100 mg 5-22 capsule by ity of capsule 00:00: mouth 3 (three) Medical times Branch daily as needed for Cough. benzonatate 2023-0 Yes [id number] 100mg Take 1 [facility] 100 mg 5-22 capsule by ity of capsule 00:00: mouth 3 [place] (three) Medical times Branch daily as needed for Cough. azithromyci 2023-0 Yes 260mg Take 6.5 [facility] n 200 mg/5 5-22 mL by ity of mL 00:00: mouth in [place] suspension 00 the Medical morning. Branch triamcinolo 2023-0 Yes 1{appli Apply 1 [facility] ne 5-22 cator} Applicator ity of acetonide 00:00: to area(s) [place] 0.1 % cream 00 as needed. Me dical Branch azithromyci 2023-0 Yes 260mg Take 6.5 [facility] n 200 mg/5 5-22 mL by ity of mL 00:00: mouth in [place] suspension 00 the Medical morning. Branch triamcinolo 2023-0 Yes 1{appli Apply 1 [facility] ne 5-22 cator} Applicator ity of acetonide 00:00: to area(s) [place] 0.1 % cream 00 as needed. Me dical Branch azithromyci 2023-0 Yes 260mg Take 6.5 [facility] n[facility] n 200 mg/5 5-22 mL by ity of mL 00:00: mouth in [place] suspension 00 the Medical morning. Branch triamcinolo 2023-0 Yes 1{appli Apply 1 [facility] ne 5-22 cator} Applicator ity of acetonide 00:00: to area(s) [place] 0.1 % cream 00 as needed. Me dical Branch azithromyci 3-0 Yes 260mg Take 6.5 [facility] nivers n 200 mg/5 5-22 mL by ity of mL 00:00: mouth in [place] suspension 00 the Medical morning. Branch triamcinolo 3-0 Yes 1{appli Apply 1 [facility] ne 5-22 cator} Applicator ity of acetonide 00:00: to area(s) [place] 0.1 % cream 00 as needed. Me dical Branch azithromyci 3-0 Yes 260mg Take 6.5 U nivers n 200 mg/5 5-22 mL by ity of mL 00:00: mouth in [place] suspension 00 the Medical morning. Branch triamcinolo 3-0 Yes 1{appli Apply 1 [facility] [place] ne 5- cator} Applicator ity of acetonide 00:00: to area(s) [place] 0.1 % cream 00 as needed. Me dical Branch azithromyci 3-0 Yes 260mg Take 6.5 U nivers n 200 mg/5 5-22 mL by ity of mL 00:00: mouth in [place] suspension 00 the Medical morning. Branch triamcinolo 3-0 Yes 1{appli Apply 1 [facility] ne 5-22 cator} Applicator ity of acetonide 00:00: to area(s) [place] 0.1 % cream 00 as needed. Me dical Branch azithromyci 3-0 Yes 260mg Take 6.5 [facility] nivers n 200 mg/5 5-22 mL by ity of mL 00:00: mouth in [place] suspension 00 the Medical morning. Branch triamcinolo 3-0 Yes 1{appli Apply 1 [facility] ne 5-22 cator} Applicator ity of acetonide 00:00: to area(s) [place] 0.1 % cream 00 as needed. Me dical Branch azithromyci 2023-0 Yes 260mg Take 6.5 U nivers n 200 mg/5 5-22 mL by ity of mL 00:00: mouth in [place] suspension 00 the Medical morning. Branch triamcinolo 2023-0 Yes 1{appli Apply 1 [facility] ne 522 cator} Applicator ity of acetonide 00:00: to area(s) [place] 0.1 % cream 00 as needed. Me dical Branch azithromyci 2023-0 Yes 260mg Take 6.5 [facility] nivers n 200 mg/5 5-22 mL by ity of mL 00:00: mouth in [place] suspension the Medical morning. Branch triamcinolo 3-0 Yes 1{appli Apply 1 [facility] ne 522 cator} Applicator ity of acetonide 00:00: to area(s) [place] 0.1 % cream 00 as needed. Me dical Branch azithromyci 3-0 Yes 260mg Take 6.5 [facility] nivers n 200 mg/5 5-22 mL by ity of mL 00:00: mouth in [place] suspension the Medical morning. Branch triamcinolo 3-0 Yes 1{appli Apply 1 [facility] ne 12-07 cator} Applicator ity of acetonide 00:00: to area(s) [place] 0.1 % cream 00 as needed. Me dical Branch azithromyci 3-0 Yes 260mg Take 6.5 [facility] nivers n 200 mg/5 5-22 mL by ity of mL 00:00: mouth in [place] suspension the Medical morning. Branch triamcinolo 3-0 Yes 1{appli Apply 1 [facility] ne 5 cator} Applicator ity of acetonide 00:00: to area(s) [place] 0.1 % cream 00 as needed. Me dical Branch azithromyci 2023-0 Yes 260mg Take 6.5 [facility] nivers n 200 mg/5 5-22 mL by ity of mL 00:00: mouth in [place] suspension 00 the Medical morning. Branch triamcinolo 2023-0 Yes 1{appli Apply 1 [facility] ne 5-22 cator} Applicator ity of acetonide 00:00: to area(s) [place] 0.1 % cream 00 as needed. Me dical Branch azithromyci 2023-0 Yes 260mg Take 6.5 [facility] nivers n 200 mg/5 5-22 mL by ity of mL 00:00: mouth in [place] suspension 00 the Medical morning. Branch triamcinolo 3-0 Yes 1{appli Apply 1 [facility] ne 12-07 cator} Applicator ity of acetonide 00:00: to area(s) [place] 0.1 % cream 00 as needed. Me dical Branch azithromyci 2023-0 Yes 260mg Take 6.5 U nivers n 200 mg/5 5-22 mL by ity of mL 00:00: mouth in [place] suspension 00 the Medical morning. Branch triamcinolo 3-0 Yes 1{appli Apply 1 [facility] ne 12-07 cator} Applicator ity of acetonide 00:00: to area(s) [place] 0.1 % cream 00 as needed. Me dical Branch azithromyci 3-0 Yes 260mg Take 6.5 U nivers n 200 mg/5 5-22 mL by ity of mL 00:00: mouth in [place] suspension the Medical morning. Branch triamcinolo 3-0 Yes 1{appli Apply 1 [facility] ne 12-07 cator} Applicator ity of acetonide 00:00: to area(s) [place] 0.1 % cream 00 as needed. Me dical Branch azithromyci 3-0 Yes 260mg Take 6.5 U nivers n 200 mg/5 5-22 mL by ity of mL 00:00: mouth in [place] suspension the Medical morning. Branch triamcinolo 3-0 Yes 1{appli Apply 1 [facility] ne 12-07 cator} Applicator ity of acetonide 00:00: to area(s) [place] 0.1 % cream 00 as needed. Me dical Branch azithromyci 2023-0 Yes 260mg Take 6.5 U nivers n 200 mg/5 5-22 mL by ity of mL 00:00: mouth in [place] suspension 00 the Medical morning. Branch triamcinolo 2023-0 Yes 1{appli Apply 1 [facility] ne 5 cator} Applicator ity of acetonide 00:00: to area(s) [place] 0.1 % cream 00 as needed. Me dical Branch azithromyci 2023-0 Yes 260mg Take 6.5 [facility] nivers n 200 mg/5 5-22 mL by ity of mL 00:00: mouth in [place] suspension 00 the Medical morning. Branch triamcinolo 3-0 Yes 1{appli Apply 1 [facility] ne 12-07 cator} Applicator ity of acetonide 00:00: to area(s) [place] 0.1 % cream 00 as needed. Me dical Branch azithromyci 2023-0 Yes 260mg Take 6.5 U nivers n 200 mg/5 5-22 mL by ity of mL 00:00: mouth in [place] suspension the Medical morning. Branch triamcinolo 3-0 Yes 1{appli Apply 1 [facility] ne 12-07 cator} Applicator ity of acetonide 00:00: to area(s) [place] 0.1 % cream 00 as needed. Me dical Branch azithromyci 3-0 Yes 260mg Take 6.5 U nivers n 200 mg/5 5-22 mL by ity of mL 00:00: mouth in [place] suspension the Medical morning. Branch triamcinolo 3-0 Yes 1{appli Apply 1 [facility] ne 12-07 cator} Applicator ity of acetonide 00:00: to area(s) [place] 0.1 % cream 00 as needed. Me dical Branch azithromyci 3-0 Yes 260mg Take 6.5 U nivers n 200 mg/5 5-22 mL by ity of mL 00:00: mouth in [place] suspension the Medical morning. Branch triamcinolo 3-0 Yes 1{appli Apply 1 [facility] ne 12-07 cator} Applicator ity of acetonide 00:00: to area(s) [place] 0.1 % cream 00 as needed. Me dical Branch azithromyci 2023-0 Yes 260mg Take 6.5 U nivers n 200 mg/5 5-22 mL by ity of mL 00:00: mouth in [place] suspension 00 the Medical morning. Branch triamcinolo 2023-0 Yes 1{appli Apply 1 [facility] ne 5-22 cator} Applicator ity of acetonide 00:00: to area(s) [place] 0.1 % cream 00 as needed. Me dical Branch azithromyci 2023-0 Yes 260mg Take 6.5 U nivers n 200 mg/5 5-22 mL by ity of mL 00:00: mouth in [place] suspension 00 the Medical morning. Branch triamcinolo 2022-0 Yes 1{appli Apply 1 [facility] ne 5-22 cator} Applicator ity of acetonide 00:00: to area(s) [place] 0.1 % cream 00 as needed. Me dical Branch azithromyci 3-0 Yes 260mg Take 6.5 U nivers n 200 mg/5 5-22 mL by ity of mL 00:00: mouth in [place] suspension 00 the Medical morning. Branch triamcinolo 2022-0 Yes 1{appli Apply 1 [facility] ne 12-07 cator} Applicator ity of acetonide 00:00: to area(s) [place] 0.1 % cream 00 as needed. Me dical Branch benzonatate 3-0 2023- No [id number] 100mg Take 1 [facility] 100 mg 5-22 06-05 capsule by ity of capsule 00:00: 00:00 mouth 3 [place] 00 :00 (three) Medical times Branch daily as needed for Cough. benzonatate 3-0 2023- No [id number] 100mg Take 1 [facility] 100 mg 5-22 06-05 capsule by ity of capsule 00:00: 00:00 mouth 3 [place] 00 :00 (three) Medical times Branch daily as needed for Cough. benzonatate 3-0 2023- No [id number] 100mg Take 1 [facility] 100 mg 5-22 06-05 capsule by ity of capsule 00:00: 00:00 mouth 3 [place] 00 :00 (three) Medical times Branch daily as needed for Cough. NYSTOP 2023-0 Yes 1{dose} Apply 1 [facility] rs 100,000 5-14 Dose to ity of unit/gram 00:00: area(s) in [place] powder 00 the Medical morning. Branch NYSTOP 2023-0 Yes 1{dose} Apply 1 [facility] rs 100,000 5-14 Dose to ity of unit/gram 00:00: area(s) in [place] powder 00 the Medical morning. Branch NYSTOP 2023-0 Yes 1{dose} Apply 1 [facility] rs 100,000 5-14 Dose to ity of unit/gram 00:00: area(s) in [place] powder 00 the Medical morning. Branch NYSTOP 2023-0 Yes 1{dose} Apply 1 [facility] rs 100,000 5-14 Dose to ity of unit/gram 00:00: area(s) in [place] powder 00 the Medical morning. Branch NYSTOP 2023-0 Yes 1{dose} Apply 1 [facility] rs 100,000 5-14 Dose to ity of unit/gram 00:00: area(s) in [place] powder 00 the Medical morning. Branch NYSTOP 2023-0 Yes 1{dose} Apply 1 [facility] rs 100,000 5-14 Dose to ity of unit/gram 00:00: area(s) in [place] powder 00 the Medical morning. Branch NYSTOP 2023-0 Yes 1{dose} Apply 1 [facility] rs 100,000 5-14 Dose to ity of unit/gram 00:00: area(s) in [place] powder 00 the Medical morning. Branch NYSTOP 3-0 Yes 1{dose} Apply 1 [facility] rs 100,000 5-14 Dose to ity of unit/gram 00:00: area(s) in [place] powder 00 the Medical morning. Branch NYSTOP 3-0 Yes 1{dose} Apply 1 [facility] rs 100,000 5-14 Dose to ity of unit/gram 00:00: area(s) in [place] powder 00 the Medical morning. Branch NYSTOP 2023-0 Yes 1{dose} Apply 1 [facility] rs 100,000 5-14 Dose to ity of unit/gram 00:00: area(s) in [place] powder 00 the Medical morning. Branch NYSTOP 2023-0 Yes 1{dose} Apply 1 [facility] rs 100,000 5-14 Dose to ity of unit/gram 00:00: area(s) in [place] powder 00 the Medical morning. Branch NYSTOP 2023-0 Yes 1{dose} Apply 1 [facility] rs 100,000 5-14 Dose to ity of unit/gram 00:00: area(s) in [place] powder 00 the Medical morning. Branch NYSTOP 2023-0 Yes 1{dose} Apply 1 [facility] rs 100,000 5-14 Dose to ity of unit/gram 00:00: area(s) in [place] powder 00 the Medical morning. Branch NYSTOP 2023-0 Yes 1{dose} Apply 1 [facility] rs 100,000 5-14 Dose to ity of unit/gram 00:00: area(s) in [place] powder 00 the Medical morning. Branch NYSTOP 2023-0 Yes 1{dose} Apply 1 [facility] rs 100,000 5-14 Dose to ity of unit/gram 00:00: area(s) in [place] powder 00 the Medical morning. Branch NYSTOP 2023-0 Yes 1{dose} Apply 1 [facility] rs 100,000 5-14 Dose to ity of unit/gram 00:00: area(s) in [place] powder 00 the Medical morning. Branch NYSTOP 3-0 Yes 1{dose} Apply 1 [facility] rs 100,000 5-14 Dose to ity of unit/gram 00:00: area(s) in [place] powder 00 the Medical morning. Branch NYSTOP 3-0 Yes 1{dose} Apply 1 [facility] rs 100,000 5-14 Dose to ity of unit/gram 00:00: area(s) in [place] powder 00 the Medical morning. Branch NYSTOP 3-0 Yes 1{dose} Apply 1 [facility] rs 100,000 5-14 Dose to ity of unit/gram 00:00: area(s) in [place] powder 00 the Medical morning. Branch NYSTOP 3-0 Yes 1{dose} Apply 1 [facility] rs 100,000 5-14 Dose to ity of unit/gram 00:00: area(s) in [place] powder 00 the Medical morning. Branch NYSTOP 2023-0 Yes 1{dose} Apply 1 [facility] rs 100,000 5-14 Dose to ity of unit/gram 00:00: area(s) in [place] powder 00 the Medical morning. Branch NYSTOP 2023-0 Yes 1{dose} Apply 1 [facility] rs 100,000 5-14 Dose to ity of unit/gram 00:00: area(s) in [place] powder 00 the Medical morning. Branch NYSTOP 2023-0 Yes 1{dose} Apply 1 [facility] rs 100,000 5-14 Dose to ity of unit/gram 00:00: area(s) in [place] powder 00 the Medical morning. Branch NYSTOP 2023-0 Yes 1{dose} Apply 1 [facility] rs 100,000 5-14 Dose to ity of unit/gram 00:00: area(s) in [place] powder 00 the Medical morning. Branch cariprazine 2022-0 Yes 1{capsu Take 1 U nivers (VRAYLAR) 3 5-04 le} capsule by it y of mg Cap 11:09: mouth in [address] and 1 capsule in the evening. cariprazine 2022-0 Yes 1{capsu Take 1 U nivers (VRAYLAR) 3 5-04 le} capsule by it y of mg Cap 11:09: mouth in [address] and 1 capsule in the evening. cariprazine 2022-0 Yes 1{capsu Take 1 U nivers (VRAYLAR) 3 5-04 le} capsule by it y of mg Cap 11:09: mouth in [address] and 1 capsule in the evening. cariprazine 2022-0 Yes 1{capsu Take 1 U nivers (VRAYLAR) 3 5-04 le} capsule by it y of mg Cap 11:09: mouth in [address] and 1 capsule in the evening. cariprazine 2022-0 Yes 1{capsu Take 1 U nivers (VRAYLAR) 3 5-04 le} capsule by it y of mg Cap 11:09: mouth in [address] and 1 capsule in the evening. cariprazine 2022-0 Yes 1{capsu Take 1 U nivers (VRAYLAR) 3 5-04 le} capsule by it y of mg Cap 11:09: mouth in [address] and 1 capsule in the evening. cariprazine 2022-0 Yes 1{capsu Take 1 U nivers (VRAYLAR) 3 5-04 le} capsule by it y of mg Cap 11:09: mouth in [address] and 1 capsule in the evening. cariprazine 2022-0 Yes 1{capsu Take 1 U nivers (VRAYLAR) 3 5-04 le} capsule by it y of mg Cap 11:09: mouth in [address] and 1 capsule in the evening. cariprazine 2022-0 Yes 1{capsu Take 1 U nivers (VRAYLAR) 3 5-04 le} capsule by it y of mg Cap 11:09: mouth in [address] and 1 capsule in the evening. cariprazine 2023-0 Yes 1{capsu Take 1 [facility] (VRAYLAR) 3 5-04 le} capsule by it y of mg Cap 11:09: mouth in [address] and 1 capsule in the evening. cariprazine 2023-0 Yes 1{capsu Take 1 [facility] (VRAYLAR) 3 5-04 le} capsule by it y of mg Cap 11:09: mouth in [address] and 1 capsule in the evening. cariprazine 2023-0 Yes 1{capsu Take 1 [facility] (VRAYLAR) 3 5-04 le} capsule by it y of mg Cap 11:09: mouth in [address] and 1 capsule in the evening. cariprazine 2023-0 Yes 1{capsu Take 1 [facility] (VRAYLAR) 3 5-04 le} capsule by it y of mg Cap 11:09: mouth in [address] and 1 capsule in the evening. cariprazine 2023-0 Yes 1{capsu Take 1 [facility] (VRAYLAR) 3 5-04 le} capsule by it y of mg Cap 11:09: mouth in [address] and 1 capsule in the evening. cariprazine 2023-0 Yes 1{capsu Take 1 [facility] (VRAYLAR) 3 5-04 le} capsule by it y of mg Cap 11:09: mouth in [address] and 1 capsule in the evening. cariprazine 2023-0 Yes 1{capsu Take 1 [facility] (VRAYLAR) 3 5-04 le} capsule by it y of mg Cap 11:09: mouth in [address] and 1 capsule in the evening. cariprazine 2023-0 Yes 1{capsu Take 1 [facility] (VRAYLAR) 3 5-04 le} capsule by it y of mg Cap 11:09: mouth in [address] and 1 capsule in the evening. cariprazine 2023-0 Yes 1{capsu Take 1 [facility] (VRAYLAR) 3 5-04 le} capsule by it y of mg Cap 11:09: mouth in [address] and 1 capsule in the evening. cariprazine 2023-0 Yes 1{capsu Take 1 [facility] (VRAYLAR) 3 5-04 le} capsule by it y of mg Cap 11:09: mouth in [address] and 1 capsule in the evening. cariprazine 2023-0 Yes 1{capsu Take 1 [facility] (VRAYLAR) 3 5-04 le} capsule by it y of mg Cap 11:09: mouth in [address] and 1 capsule in the evening. cariprazine 2023-0 Yes 1{capsu Take 1 [facility] (VRAYLAR) 3 5-04 le} capsule by it y of mg Cap 11:09: mouth in [address] and 1 capsule in the evening. cariprazine 2023-0 Yes 1{capsu Take 1 [facility] (VRAYLAR) 3 5-04 le} capsule by it y of mg Cap 11:09: mouth in [address] and 1 capsule in the evening. cariprazine 2023-0 Yes 1{capsu Take 1 [facility] (VRAYLAR) 3 5-04 le} capsule by it y of mg Cap 11:09: mouth in [address] and 1 capsule in the evening. cariprazine 2023-0 Yes 1{capsu Take 1 [facility] (VRAYLAR) 3 5-04 le} capsule by it y of mg Cap 11:09: mouth in [address] and 1 capsule in the evening. cariprazine 2023-0 Yes 1{capsu Take 1 [facility] (VRAYLAR) 3 5-04 le} capsule by it y of mg Cap 11:09: mouth in [address] and 1 capsule in the evening. cariprazine 2023-0 Yes 1{capsu Take 1 [facility] (VRAYLAR) 3 5-04 le} capsule by it y of mg Cap 11:09: mouth in [address] and 1 capsule in the evening. cariprazine 2023-0 Yes 1{capsu Take 1 [facility] (VRAYLAR) 3 5-04 le} capsule by it y of mg Cap 11:09: mouth in [address] and 1 capsule in the evening. cariprazine 2023-0 Yes 1{capsu Take 1 [facility] (VRAYLAR) 3 5-04 le} capsule by it y of mg Cap 11:09: mouth in [address] and 1 capsule in the evening. cariprazine 2023-0 Yes 1{capsu Take 1 [facility] (VRAYLAR) 3 5-04 le} capsule by it y of mg Cap 11:09: mouth in [address] and 1 capsule in the evening. cariprazine 2023-0 Yes 1{capsu Take 1 [facility] (VRAYLAR) 3 5-04 le} capsule by it y of mg Cap 11:09: mouth in [address] and 1 capsule in the evening. cariprazine 2023-0 Yes 1{capsu Take 1 [facility] (VRAYLAR) 3 5-04 le} capsule by it y of mg Cap 11:09: mouth in [address] and 1 capsule in the evening. cariprazine 2023-0 Yes 1{capsu Take 1 [facility] (VRAYLAR) 3 5-04 le} capsule by it y of mg Cap 11:09: mouth in [address] and 1 capsule in the evening. cariprazine 2023-0 Yes 1{capsu Take 1 [facility] (VRAYLAR) 3 5-04 le} capsule by it y of mg Cap 11:09: mouth in [address] and 1 capsule in the evening. cariprazine 2023-0 Yes 1{capsu Take 1 [facility] (VRAYLAR) 3 5-04 le} capsule by it y of mg Cap 11:09: mouth in [address] and 1 capsule in the evening. cariprazine 2023-0 Yes 1{capsu Take 1 [facility] (VRAYLAR) 3 5-04 le} capsule by it y of mg Cap 11:09: mouth in [address] and 1 capsule in the evening. cariprazine 2023-0 Yes 1{capsu Take 1 [facility] (VRAYLAR) 3 5-04 le} capsule by it y of mg Cap 11:09: mouth in [place] [address] the Medical morning Branch and 1 capsule in the evening. cariprazine 2023-0 Yes 1{capsu Take 1 [facility] (VRAYLAR) 3 5-04 le} capsule by it y of mg Cap 11:09: mouth in [place] [address] the Medical morning Branch and 1 capsule in the evening. dexamethaso 2023-0 Yes [id number] 12mg Take 120 [facility] ne 0.1 5-01 mL by ity of mg/mL LOW 00:00: mouth in [facility] the Medical ON solution morning. Bran ch ipratropium 2023-0 Yes [id number] .5mg Inhale 2.5 [facility] 0.02 % 5-01 mL every 6 ity of nebulizer 00:00: (six) [place] solution 00 hours as Medical needed for Branch Wheezing or Shortness of Breath. dexamethaso 2023-0 Yes [id number] 12mg Take 120 [facility] ne 0.1 5-01 mL by ity of mg/mL LOW 00:00: mouth in [facility] the Medical ON solution morning. Bran ch ipratropium 2023-0 Yes [id number] .5mg Inhale 2.5 [facility] 0.02 % 5-01 mL every 6 ity of nebulizer 00:00: (six) [place] solution 00 hours as Medical needed for Branch Wheezing or Shortness of Breath. dexamethaso 2023-0 Yes [id number] 12mg Take 120 [facility] ne 0.1 5-01 mL by ity of mg/mL LOW 00:00: mouth in [facility] 00 the Medical ON solution morning. Bran ch ipratropium 2023-0 Yes [id number] .5mg Inhale 2.5 [facility] 0.02 % 5-01 mL every 6 ity of nebulizer 00:00: (six) [place] solution 00 hours as Medical needed for Branch Wheezing or Shortness of Breath. dexamethaso 2023-0 Yes [id number] 12mg Take 120 [facility] ne 0.1 5-01 mL by ity of mg/mL LOW 00:00: [facility] 00 the Medical ON solution morning. Bran ch ipratropium 2023-0 Yes [id number] .5mg Inhale 2.5 [facility] 0.02 % 5-01 mL every 6 ity of nebulizer 00:00: (six) [place] solution 00 hours as Medical needed for Branch Wheezing or Shortness of Breath. dexamethaso 2023-0 Yes [id number] 12mg Take 120 [facility] ne 0.1 5-01 mL by ity of mg/mL LOW 00:00: [place] [facility] the Medical ON solution morning. Bran ch ipratropium 2023-0 Yes [id number] .5mg Inhale 2.5 [facility] 0.02 % 5-01 mL every 6 ity of nebulizer 00:00: (six) [place] solution 00 hours as Medical needed for Branch Wheezing or Shortness of Breath. dexamethaso 2023-0 Yes [id number] 12mg Take 120 [facility] ne 0.1 5-01 mL by ity of mg/mL LOW 00:00: [place] [facility] the Medical ON solution morning. Bran ch ipratropium 2023-0 Yes [id number] .5mg Inhale 2.5 [facility] 0.02 % 5-01 mL every 6 ity of nebulizer 00:00: (six) [place] solution 00 hours as Medical needed for Branch Wheezing or Shortness of Breath. dexamethaso 2023-0 Yes [id number] 12mg Take 120 [facility] ne 0.1 5-01 mL by ity of mg/mL LOW 00:00: [place] [facility] the Medical ON solution morning. Bran ch ipratropium 2023-0 Yes [id number] .5mg Inhale 2.5 [facility] 0.02 % 5-01 mL every 6 ity of nebulizer 00:00: (six) [place] solution 00 hours as Medical needed for Branch Wheezing or Shortness of Breath. dexamethaso 2023-0 Yes [id number] 12mg Take 120 [facility] ne 0.1 5-01 mL by ity of mg/mL LOW 00:00: [place] [facility] the Medical ON solution morning. Bran ch ipratropium 2023-0 Yes [id number] .5mg Inhale 2.5 [facility] 0.02 % 5-01 mL every 6 ity of nebulizer 00:00: (six) [place] solution 00 hours as Medical needed for Branch Wheezing or Shortness of Breath. dexamethaso 2023-0 Yes [id number] 12mg Take 120 [facility] ne 0.1 5-01 mL by ity of mg/mL LOW 00:00: [place] [facility] the Medical ON solution morning. Bran ch ipratropium 2023-0 Yes [id number] .5mg Inhale 2.5 [facility] 0.02 % 5-01 mL every 6 ity of nebulizer 00:00: (six) [place] solution 00 hours as Medical needed for Branch Wheezing or Shortness of Breath. dexamethaso 2023-0 Yes [id number] 12mg Take 120 [facility] ne 0.1 5-01 mL by ity of mg/mL LOW 00:00: [place] [facility] the Medical ON solution morning. Bran ch ipratropium 2023-0 Yes [id number] .5mg Inhale 2.5 [facility] 0.02 % 5-01 mL every 6 ity of nebulizer 00:00: (six) [place] solution 00 hours as Medical needed for Branch Wheezing or Shortness of Breath. dexamethaso 2023-0 Yes [id number] 12mg Take 120 [facility] ne 0.1 5-01 mL by ity of mg/mL LOW 00:00: [place] [facility] the Medical ON solution morning. Bran ch ipratropium 2023-0 Yes [id number] .5mg Inhale 2.5 [facility] 0.02 % 5-01 mL every 6 ity of nebulizer 00:00: (six) [place] solution 00 hours as Medical needed for Branch Wheezing or Shortness of Breath. dexamethaso 2023-0 Yes [id number] 12mg Take 120 [facility] ne 0.1 5-01 mL by ity of mg/mL LOW 00:00: [place] [facility] the Medical ON solution morning. Bran ch ipratropium 2023-0 Yes [id number] .5mg Inhale 2.5 [facility] 0.02 % 5-01 mL every 6 ity of nebulizer 00:00: (six) [place] solution 00 hours as Medical needed for Branch Wheezing or Shortness of Breath. dexamethaso 2023-0 Yes [id number] 12mg Take 120 [facility] ne 0.1 5-01 mL by ity of mg/mL LOW 00:00: [place] [facility] 00 the Medical ON solution morning. Bran ch ipratropium 2023-0 Yes [id number] .5mg Inhale 2.5 [facility] 0.02 % 5-01 mL every 6 ity of nebulizer 00:00: (six) [place] solution 00 hours as Medical needed for Branch Wheezing or Shortness of Breath. dexamethaso 2023-0 Yes [id number] 12mg Take 120 [facility] ne 0.1 5-01 mL by ity of mg/mL LOW 00:00: [place] [facility] the Medical ON solution morning. Bran ch ipratropium 2023-0 Yes [id number] .5mg Inhale 2.5 [facility] 0.02 % 5-01 mL every 6 ity of nebulizer 00:00: (six) [place] solution 00 hours as Medical needed for Branch Wheezing or Shortness of Breath. dexamethaso 2023-0 Yes [id number] 12mg Take 120 [facility] ne 0.1 5-01 mL by ity of mg/mL LOW 00:00: [place] [facility] the Medical ON solution morning. Bran ch ipratropium 2023-0 Yes [id number] .5mg Inhale 2.5 [facility] 0.02 % 5-01 mL every 6 ity of nebulizer 00:00: (six) [place] solution 00 hours as Medical needed for Branch Wheezing or Shortness of Breath. dexamethaso 2023-0 Yes [id number] 12mg Take 120 [facility] ne 0.1 5-01 mL by ity of mg/mL LOW 00:00: [place] [facility] the Medical ON solution morning. Bran ch ipratropium 2023-0 Yes [id number] .5mg Inhale 2.5 [facility] 0.02 % 5-01 mL every 6 ity of nebulizer 00:00: (six) [place] solution 00 hours as Medical needed for Branch Wheezing or Shortness of Breath. dexamethaso 2023-0 Yes [id number] 12mg Take 120 [facility] ne 0.1 5-01 mL by ity of mg/mL LOW 00:00: [place] [facility] the Medical ON solution morning. Bran ch ipratropium 2023-0 Yes [id number] .5mg Inhale 2.5 [facility] 0.02 % 5-01 mL every 6 ity of nebulizer 00:00: (six) [place] solution 00 hours as Medical needed for Branch Wheezing or Shortness of Breath. dexamethaso 2023-0 Yes [id number] 12mg Take 120 [facility] ne 0.1 5-01 mL by ity of mg/mL LOW 00:00: [place] [facility] the Medical ON solution morning. Bran ch ipratropium 2023-0 Yes [id number] .5mg Inhale 2.5 [facility] 0.02 % 5-01 mL every 6 ity of nebulizer 00:00: (six) [place] solution 00 hours as Medical needed for Branch Wheezing or Shortness of Breath. dexamethaso 2023-0 Yes [id number] 12mg Take 120 [facility] ne 0.1 5-01 mL by ity of mg/mL LOW 00:00: [place] [facility] the Medical ON solution morning. Bran ch ipratropium 2023-0 Yes [id number] .5mg Inhale 2.5 [facility] 0.02 % 5-01 mL every 6 ity of nebulizer 00:00: (six) [place] solution 00 hours as Medical needed for Branch Wheezing or Shortness of Breath. dexamethaso 2023-0 Yes [id number] 12mg Take 120 [facility] ne 0.1 5-01 mL by ity of mg/mL LOW 00:00: [place] [facility] 00 the Medical ON solution morning. Bran ch ipratropium 2023-0 Yes [id number] .5mg Inhale 2.5 [facility] 0.02 % 5-01 mL every 6 ity of nebulizer 00:00: (six) [place] solution 00 hours as Medical needed for Branch Wheezing or Shortness of Breath. dexamethaso 2023-0 Yes [id number] 12mg Take 120 [facility] ne 0.1 5-01 mL by ity of mg/mL LOW 00:00: [place] [facility] 00 the Medical ON solution morning. Bran ch ipratropium 2023-0 Yes [id number] .5mg Inhale 2.5 [facility] 0.02 % 5-01 mL every 6 ity of nebulizer 00:00: (six) [place] solution 00 hours as Medical needed for Branch Wheezing or Shortness of Breath. dexamethaso 2023-0 Yes [id number] 12mg Take 120 [facility] ne 0.1 5-01 mL by ity of mg/mL LOW 00:00: [place] [facility] 00 the Medical ON solution morning. Bran ch ipratropium 2023-0 Yes [id number] .5mg Inhale 2.5 [facility] 0.02 % 5-01 mL every 6 ity of nebulizer 00:00: (six) [place] solution 00 hours as Medical needed for Branch Wheezing or Shortness of Breath. dexamethaso 2023-0 Yes [id number] 12mg Take 120 [facility] ne 0.1 5-01 mL by ity of mg/mL LOW 00:00: [place] [facility] 00 the Medical ON solution morning. Bran ch ipratropium 2023-0 Yes [id number] .5mg Inhale 2.5 [facility] 0.02 % 5-01 mL every 6 ity of nebulizer 00:00: (six) [place] solution 00 hours as Medical needed for Branch Wheezing or Shortness of Breath. dexamethaso 2023-0 Yes [id number] 12mg Take 120 [facility] ne 0.1 5-01 mL by ity of mg/mL LOW 00:00: [place] [facility] 00 the Medical ON solution morning. Bran ch ipratropium 2023-0 Yes [id number] .5mg Inhale 2.5 [facility] 0.02 % 5-01 mL every 6 ity of nebulizer 00:00: (six) [place] solution 00 hours as Medical needed for Branch Wheezing or Shortness of Breath. dexamethaso 2023-0 Yes [id number] 12mg Take 120 [facility] ne 0.1 5-01 mL by ity of mg/mL LOW 00:00: [place] [facility] 00 the Medical ON solution morning. Bran ch ipratropium 2023-0 Yes [id number] .5mg Inhale 2.5 [facility] 0.02 % 5-01 mL every 6 ity of nebulizer 00:00: (six) [place] solution 00 hours as Medical needed for Branch Wheezing or Shortness of Breath. dexamethaso 2023-0 Yes [id number] 12mg Take 120 [facility] ne 0.1 5-01 mL by ity of mg/mL LOW 00:00: [place] [facility] 00 the Medical ON solution morning. Bran ch ipratropium 2023-0 Yes [id number] .5mg Inhale 2.5 [facility] 0.02 % 5-01 mL every 6 ity of nebulizer 00:00: (six) [place] solution 00 hours as Medical needed for Branch Wheezing or Shortness of Breath. dexamethaso 2023-0 Yes [id number] 12mg Take 120 [facility] ne 0.1 5-01 mL by ity of mg/mL LOW 00:00: [place] [facility] 00 the Medical ON solution morning. Bran ch ipratropium 2023-0 Yes [id number] .5mg Inhale 2.5 [facility] 0.02 % 5-01 mL every 6 ity of nebulizer 00:00: (six) [place] solution 00 hours as Medical needed for Branch Wheezing or Shortness of Breath. dexamethaso 2023-0 Yes [id number] 12mg Take 120 [facility] ne 0.1 5-01 mL by ity of mg/mL LOW 00:00: [place] [facility] 00 the Medical ON solution morning. Bran ch ipratropium 2023-0 Yes [id number] .5mg Inhale 2.5 [facility] 0.02 % 5-01 mL every 6 ity of nebulizer 00:00: (six) [place] solution 00 hours as Medical needed for Branch Wheezing or Shortness of Breath. ipratropium 2023-0 Yes [id number] .5mg Inhale 2.5 Univers 0.02 % 5-01 mL every 6 ity of nebulizer 00:00: (six) [place] solution 00 hours as Medical needed for Branch Wheezing or Shortness of Breath. ipratropium 2023-0 Yes [id number] .5mg Inhale 2.5 Univers 0.02 % 5-01 mL every 6 ity of nebulizer 00:00: (six) [place] solution 00 hours as Medical needed for Branch Wheezing or Shortness of Breath. ipratropium 2023-0 Yes [id number] .5mg Inhale 2.5 Univers 0.02 % 5-01 mL every 6 ity of nebulizer 00:00: (six) [place] solution 00 hours as Medical needed for Branch Wheezing or Shortness of Breath. ipratropium 2023-0 Yes [id number] .5mg Inhale 2.5 Univers 0.02 % 5-01 mL every 6 ity of nebulizer 00:00: (six) [place] solution 00 hours as Medical needed for Branch Wheezing or Shortness of Breath. ipratropium 2023-0 Yes [id number] .5mg Inhale 2.5 Univers 0.02 % 5-01 mL every 6 ity of nebulizer 00:00: (six) [place] solution 00 hours as Medical needed for Branch Wheezing or Shortness of Breath. ipratropium 2023-0 Yes [id number] .5mg Inhale 2.5 Univers 0.02 % 5-01 mL every 6 ity of nebulizer 00:00: (six) [place] solution 00 hours as Medical needed for Branch Wheezing or Shortness of Breath. ipratropium 2023-0 Yes [id number] .5mg Inhale 2.5 Univers 0.02 % 5-01 mL every 6 ity of nebulizer 00:00: (six) [place] solution 00 hours as Medical needed for Branch Wheezing or Shortness of Breath. ipratropium 2023-0 Yes [id number] .5mg Inhale 2.5 Univers 0.02 % 5-01 mL every 6 ity of nebulizer 00:00: (six) [place] solution 00 hours as Medical needed for Branch Wheezing or Shortness of Breath. ipratropium 2023-0 Yes [id number] .5mg Inhale 2.5 Univers 0.02 % 5-01 mL every 6 ity of nebulizer 00:00: (six) [place] solution 00 hours as Medical needed for Branch Wheezing or Shortness of Breath. ipratropium 2023-0 Yes [id number] .5mg Inhale 2.5 Univers 0.02 % 5-01 mL every 6 ity of nebulizer 00:00: (six) [place] solution 00 hours as Medical needed for Branch Wheezing or Shortness of Breath. ipratropium 2023-0 Yes [id number] .5mg Inhale 2.5 [facility] 0.02 % 5-01 mL every 6 ity of nebulizer 00:00: (six) [place] solution 00 hours as Medical needed for Branch Wheezing or Shortness of Breath. ipratropium 2023-0 Yes [id number] .5mg Inhale 2.5 [facility] 0.02 % 5-01 mL every 6 ity of nebulizer 00:00: (six) [place] solution 00 hours as Medical needed for Branch Wheezing or Shortness of Breath. ipratropium 2023-0 Yes [id number] .5mg Inhale 2.5 [facility] 0.02 % 5-01 mL every 6 ity of nebulizer 00:00: (six) [place] solution 00 hours as Medical needed for Branch Wheezing or Shortness of Breath. ipratropium 2023-0 Yes [id number] .5mg Inhale 2.5 [facility] 0.02 % 5-01 mL every 6 ity of nebulizer 00:00: (six) [place] solution 00 hours as Medical needed for Branch Wheezing or Shortness of Breath. ipratropium 2023-0 Yes [id number] .5mg Inhale 2.5 [facility] 0.02 % 5-01 mL every 6 ity of nebulizer 00:00: (six) [place] solution 00 hours as Medical needed for Branch Wheezing or Shortness of Breath. ipratropium 2023-0 Yes [id number] .5mg Inhale 2.5 [facility] 0.02 % 5-01 mL every 6 ity of nebulizer 00:00: (six) [place] solution 00 hours as Medical needed for Branch Wheezing or Shortness of Breath. ipratropium 2023-0 Yes [id number] .5mg Inhale 2.5 [facility] 0.02 % 5-01 mL every 6 ity of nebulizer 00:00: (six) [place] solution 00 hours as Medical needed for Branch Wheezing or Shortness of Breath. ipratropium 2023-0 Yes [id number] .5mg Inhale 2.5 [facility] 0.02 % 5-01 mL every 6 ity of nebulizer 00:00: (six) [place] solution 00 hours as Medical needed for Branch Wheezing or Shortness of Breath. ipratropium 2023-0 Yes [id number] .5mg Inhale 2.5 Univers 0.02 % 5-01 mL every 6 ity of nebulizer 00:00: (six) [place] solution 00 hours as Medical needed for Branch Wheezing or Shortness of Breath. ipratropium 2023-0 Yes [id number] .5mg Inhale 2.5 [facility] 0.02 % 5-01 mL every 6 ity of nebulizer 00:00: (six) [place] solution 00 hours as Medical needed for Branch Wheezing or Shortness of Breath. ipratropium 2023-0 Yes [id number] .5mg Inhale 2.5 [facility] 0.02 % 5-01 mL every 6 ity of nebulizer 00:00: (six) [place] solution 00 hours as Medical needed for Branch Wheezing or Shortness of Breath. ipratropium 2023-0 Yes [id number] .5mg Inhale 2.5 [facility] 0.02 % 5-01 mL every 6 ity of nebulizer 00:00: (six) [place] solution 00 hours as Medical needed for Branch Wheezing or Shortness of Breath. ipratropium 2023-0 Yes [id number] .5mg Inhale 2.5 [facility] 0.02 % 5-01 mL every 6 ity of nebulizer 00:00: (six) [place] solution 00 hours as Medical needed for Branch Wheezing or Shortness of Breath. ipratropium 2023-0 Yes [id number] .5mg Inhale 2.5 [facility] 0.02 % 5-01 mL every 6 ity of nebulizer 00:00: (six) [place] solution 00 hours as Medical needed for Branch Wheezing or Shortness of Breath. ipratropium 2023-0 Yes [id number] .5mg Inhale 2.5 [facility] 0.02 % 5-01 mL every 6 ity of nebulizer 00:00: (six) [place] solution 00 hours as Medical needed for Branch Wheezing or Shortness of Breath. ipratropium 2023-0 Yes [id number] .5mg Inhale 2.5 [facility] 0.02 % 5-01 mL every 6 ity of nebulizer 00:00: (six) [place] solution 00 hours as Medical needed for Branch Wheezing or Shortness of Breath. ipratropium 2023-0 Yes [id number] .5mg Inhale 2.5 [facility] 0.02 % 5-01 mL every 6 ity of nebulizer 00:00: (six) [place] solution 00 hours as Medical needed for Branch Wheezing or Shortness of Breath. ipratropium 2023-0 Yes [id number] .5mg Inhale 2.5 [facility] 0.02 % 5-01 mL every 6 ity of nebulizer 00:00: (six) [place] solution 00 hours as Medical needed for Branch Wheezing or Shortness of Breath. ipratropium 2023-0 Yes [id number] .5mg Inhale 2.5 [facility] 0.02 % 5-01 mL every 6 ity of nebulizer 00:00: (six) [place] solution 00 hours as Medical needed for Branch Wheezing or Shortness of Breath. ipratropium 2023-0 Yes [id number] .5mg Inhale 2.5 [facility] 0.02 % 5-01 mL every 6 ity of nebulizer 00:00: (six) [place] solution 00 hours as Medical needed for Branch Wheezing or Shortness of Breath. ipratropium 2023-0 Yes [id number] .5mg Inhale 2.5 [facility] 0.02 % 5-01 mL every 6 ity of nebulizer 00:00: (six) [place] solution 00 hours as Medical needed for Branch Wheezing or Shortness of Breath. ipratropium 2023-0 Yes [id number] .5mg Inhale 2.5 [facility] 0.02 % 5-01 mL every 6 ity of nebulizer 00:00: (six) [place] solution 00 hours as Medical needed for Branch Wheezing or Shortness of Breath. ipratropium 2023-0 Yes [id number] .5mg Inhale 2.5 [facility] 0.02 % 5-01 mL every 6 ity of nebulizer 00:00: (six) [place] solution 00 hours as Medical needed for Branch Wheezing or Shortness of Breath. ipratropium 2023-0 Yes [id number] .5mg Inhale 2.5 [facility] 0.02 % 5-01 mL every 6 ity of nebulizer 00:00: (six) [place] solution 00 hours as Medical needed for Branch Wheezing or Shortness of Breath. ipratropium 2023-0 Yes [id number] .5mg Inhale 2.5 [facility] 0.02 % 5-01 mL every 6 ity of nebulizer 00:00: (six) [place] solution 00 hours as Medical needed for Branch Wheezing or Shortness of Breath. ipratropium 2023-0 Yes [id number] .5mg Inhale 2.5 [facility] 0.02 % 5-01 mL every 6 ity of nebulizer 00:00: (six) [place] solution 00 hours as Medical needed for Branch Wheezing or Shortness of Breath. ipratropium 2023-0 Yes [id number] .5mg Inhale 2.5 [facility] 0.02 % 5-01 mL every 6 ity of nebulizer 00:00: (six) [place] solution 00 hours as Medical needed for Branch Wheezing or Shortness of Breath. ipratropium 2023-0 Yes [id number] .5mg Inhale 2.5 [facility] 0.02 % 5-01 mL every 6 ity of nebulizer 00:00: (six) [place] solution 00 hours as Medical needed for Branch Wheezing or Shortness of Breath. ipratropium 2023-0 Yes [id number] .5mg Inhale 2.5 [facility] 0.02 % 5-01 mL every 6 ity of nebulizer 00:00: (six) [place] solution 00 hours as Medical needed for Branch Wheezing or Shortness of Breath. ipratropium 2023-0 Yes [id number] .5mg Inhale 2.5 [facility] 0.02 % 5-01 mL every 6 ity of nebulizer 00:00: (six) [place] solution 00 hours as Medical needed for Branch Wheezing or Shortness of Breath. ipratropium 2023-0 Yes [id number] .5mg Inhale 2.5 [facility] 0.02 % 5-01 mL every 6 ity of nebulizer 00:00: (six) [place] solution 00 hours as Medical needed for Branch Wheezing or Shortness of Breath. ipratropium 2023-0 Yes [id number] .5mg Inhale 2.5 [facility] 0.02 % 5-01 mL every 6 ity of nebulizer 00:00: (six) [place] solution 00 hours as Medical needed for Branch Wheezing or Shortness of Breath. ipratropium 2023-0 Yes [id number] .5mg Inhale 2.5 [facility] 0.02 % 5-01 mL every 6 ity of nebulizer 00:00: (six) [place] solution 00 hours as Medical needed for Branch Wheezing or Shortness of Breath. ipratropium 2023-0 Yes [id number] .5mg Inhale 2.5 [facility] 0.02 % 5-01 mL every 6 ity of nebulizer 00:00: (six) [place] solution 00 hours as Medical needed for Branch Wheezing or Shortness of Breath. ipratropium 2023-0 Yes [id number] .5mg Inhale 2.5 [facility] 0.02 % 5-01 mL every 6 ity of nebulizer 00:00: (six) [place] solution 00 hours as Medical needed for Branch Wheezing or Shortness of Breath. ipratropium 2023-0 Yes [id number] .5mg Inhale 2.5 [facility] 0.02 % 5-01 mL every 6 ity of nebulizer 00:00: (six) [place] solution 00 hours as Medical needed for Branch Wheezing or Shortness of Breath. dexamethaso 2022-2022- No [id number] 12mg Take 120 [facility] ne 0.1 5-01 06-05 mL by ity of mg/mL LOW 00:00: 00:00 mouth in [place] as [facility] 00 :00 the Medical ON solution morning. Bran ch dexamethaso 2022- No [id number] 12mg Take 120 [facility] ne 0.1 5-01 06-05 mL by ity of mg/mL LOW 00:00: 00:00 mouth in [place] as [facility]CENTRATI 00 :00 the Medical ON solution morning. Bran ch dexamethaso 2022-2022- No [id number] 12mg Take 120 [facility] ne 0.1 5-01 06-05 mL by ity of mg/mL LOW 00:00: 00:00 mouth in [place] as [facility]CENTRATI 00 :00 the Medical ON solution morning. Bran ch levalbutero 2022- No 1.25mg 1.25 mg, Univers l (XOPENEX) 11-13 Inhalation i ty of nebulizer 05:15: 04:47 , ONCE, 1 [place] solution 00 :00 dose, On Medical 1.25 mg Fri Branch 11/13/22 at 0015, Routine ipratropium 2022- No .5mg 0.5 mg, [place] (ATROVENT) 11-13 Inhalation it y of 0.02 % 05:15: 04:45 , ONCE, 1 [place] nebulizer 00 :00 dose, On Medica l solution Fri Branch 0.5 mg 11/13/22 at 0015, Routine azithromyci 2022- No 500mg 500 mg, U nivers n 11-13 Oral, ity of (ZITHROMAX) 04:30: 04:49 ONCE, 1 [place] tablet 500 00 :00 dose, On Medic al mg Maisha Branch 11/12/22 at 2330, LESLIE
Re ason for Anti-Infec tive: Documented Infection< br>Documen rosanne Infection Site: Respirator y
Durat ion of Therapy: Other (see Comments) benzonatate 2023-0 Yes [id number] 100mg Take 1 [facility] 100 mg 4-27 capsule by ity of capsule 00:00: mouth 3 [place] 00 (three) Medical times Branch daily as needed for Cough. azithromyci 2023-0 2023- No [id number] 250mg Take 6.25 [facility] n 4-27 05-02 mL by ity of (ZITHROMAX) 00:00: 04:59 mouth in [place] 200 mg/5 mL 00 :00 the Medical suspension morning Branch for 4 days. azithromyci 2023-0 2023- No [id number] 250mg Take 6.25 [facility] n 4-27 05-02 mL by ity of (ZITHROMAX) 00:00: 04:59 mouth in [place] 200 mg/5 mL 00 :00 the Medical suspension morning Branch for 4 days. azithromyci 2023-0 2023- No [id number] 250mg Take 6.25 [facility] n 4-27 05-02 mL by ity of (ZITHROMAX) 00:00: 04:59 mouth in [place] 200 mg/5 mL 00 :00 the Medical suspension morning Branch for 4 days. benzonatate 2023-0 2023- No [id number] 100mg Take 1 [facility] 100 mg 4-27 05-01 capsule by ity of capsule 00:00: 00:00 mouth 3 [place] 00 :00 (three) Medical times Branch daily as needed for Cough. benzonatate 2023-0 2023- No [id number] 100mg Take 1 [facility] 100 mg 4-27 05-01 capsule by ity of capsule 00:00: 00:00 mouth 3 [place] 00 :00 (three) Medical times Branch daily as needed for Cough. omeprazole 2023-0 Yes 20mg Take 1 [facility] 20 mg 4-24 capsule by ity of capsule 00:00: mouth in [place] 00 the Medical morning Branch and 1 capsule in the evening. omeprazole 2023-0 Yes 20mg Take 1 [facility] 20 mg 4-24 capsule by ity of capsule 00:00: mouth in [place] 00 the Medical morning Branch and 1 capsule in the evening. omeprazole 2023-0 Yes 20mg Take 1 [facility] rs 20 mg 4-24 capsule by ity of capsule 00:00: mouth in [place] 00 the Medical morning Branch and 1 capsule in the evening. omeprazole 2023-0 Yes 20mg Take 1 [facility] rs 20 mg 4-24 capsule by ity of capsule 00:00: mouth in [place] [address] the Medical morning Branch and 1 capsule in the evening. omeprazole 2023-0 Yes 20mg Take 1 [facility] rs 20 mg 4-24 capsule by ity of capsule 00:00: mouth in [place] [address] the Medical morning Branch and 1 capsule in the evening. omeprazole 2023-0 Yes 20mg Take 1 [facility] rs 20 mg 4-24 capsule by ity of capsule 00:00: mouth in [address] Medical morning [place] and 1 capsule in the evening. omeprazole 2023-0 Yes 20mg Take 1 [facility] rs 20 mg 4-24 capsule by ity of capsule 00:00: mouth in [address] Medical morning [place] and 1 capsule in the evening. omeprazole 2023-0 Yes 20mg Take 1 [facility] 20 mg 4-24 capsule by ity of capsule 00:00: mouth in [address] Medical morning [place] and 1 capsule in the evening. omeprazole 2023-0 Yes 20mg Take 1 [facility] rs 20 mg 4-24 capsule by ity of capsule 00:00: mouth in [address] morning [place] and 1 capsule in the evening. omeprazole 2023-0 Yes 20mg Take 1 [facility] rs 20 mg 4-24 capsule by ity of capsule 00:00: mouth in [address] morning [place] and 1 capsule in the evening. omeprazole 2023-0 Yes 20mg Take 1 [facility] rs 20 mg 4-24 capsule by ity of capsule 00:00: mouth in [address] Medical morning [place] and 1 capsule in the evening. omeprazole 2023-0 Yes 20mg Take 1 [facility] rs 20 mg 4-24 capsule by ity of capsule 00:00: mouth in [address] Medical morning [place] and 1 capsule in the evening. omeprazole 2023-0 Yes 20mg Take 1 [facility] rs 20 mg 4-24 capsule by ity of capsule 00:00: mouth in [address] morning [place] and 1 capsule in the evening. omeprazole 2023-0 Yes 20mg Take 1 [facility] rs 20 mg 4-24 capsule by ity of capsule 00:00: mouth in [address] Medical morning [place] and 1 capsule in the evening. omeprazole 2023-0 Yes 20mg Take 1 [facility] 20 mg 4-24 capsule by ity of capsule 00:00: mouth in [place] [address] the Medical morning Branch and 1 capsule in the evening. omeprazole 2023-0 Yes 20mg Take 1 [facility] 20 mg 4-24 capsule by ity of capsule 00:00: mouth in [place] [address] the Medical morning Branch and 1 capsule in the evening. omeprazole 2023-0 Yes 20mg Take 1 [facility] 20 mg 4-24 capsule by ity of capsule 00:00: mouth in [place] [address] the Medical morning Branch and 1 capsule in the evening. omeprazole 2023-0 Yes 20mg Take 1 [facility] 20 mg 4-24 capsule by ity of capsule 00:00: mouth in [place] [address] the Medical morning Branch and 1 capsule in the evening. omeprazole 2023-0 Yes 20mg Take 1 [facility] 20 mg 4-24 capsule by ity of capsule 00:00: mouth in [place] [address] the Medical morning [place] and 1 capsule in the evening. omeprazole 2023-0 Yes 20mg Take 1 [facility] 20 mg 4-24 capsule by ity of capsule 00:00: mouth in [place] [address] the Medical morning [place] and 1 capsule in the evening. omeprazole 2023-0 Yes 20mg Take 1 [facility] 20 mg 4-24 capsule by ity of capsule 00:00: mouth in [place] [address] the Medical morning [place] and 1 capsule in the evening. omeprazole 2023-0 Yes 20mg Take 1 [facility] rs 20 mg 4-24 capsule by ity of capsule 00:00: mouth in [place] [address] the Medical morning [place] and 1 capsule in the evening. omeprazole 2023-0 Yes 20mg Take 1 [facility] 20 mg 4-24 capsule by ity of capsule 00:00: mouth in [address] Medical morning [place] and 1 capsule in the evening. omeprazole 2023-0 Yes 20mg Take 1 [facility] 20 mg 4-24 capsule by ity of capsule 00:00: mouth in [address] morning [place] and 1 capsule in the evening. diazePAM 2 2023-0 Yes 2mg Take 1 [facility] mg tablet 4-21 tablet by ity o f 00:00: mouth in [address] Medical morning [place] and 1 tablet in the evening. diazePAM 2 2023-0 Yes 2mg Take 1 [facility] mg tablet 4-21 tablet by ity o f 00:00: mouth in [place] 00 the Medical morning Branch and 1 tablet in the evening. diazePAM 2 2022-0 Yes 2mg Take 1 [facility] rs mg tablet 4-21 tablet by ity o f 00:00: mouth in [place] 00 the Medical morning Branch and 1 tablet in the evening. diazePAM 2 3-0 Yes 2mg Take 1 [facility] rs mg tablet 4-21 tablet by ity o f 00:00: mouth in [place] 00 the Medical morning Branch and 1 tablet in the evening. diazePAM 2 3-0 Yes 2mg Take 1 [facility] rs mg tablet 4-21 tablet by ity o f 00:00: mouth in [place] 00 the Medical morning Branch and 1 tablet in the evening. diazePAM 2 2022-0 Yes 2mg Take 1 [facility] rs mg tablet 4-21 tablet by ity o f 00:00: mouth in [place] 00 the Medical morning Branch and 1 tablet in the evening. diazePAM 2 2022-0 Yes 2mg Take 1 [facility] mg tablet 4-21 tablet by ity o f 00:00: mouth in [place] 00 the Medical morning Branch and 1 tablet in the evening. diazePAM 2 2022-0 Yes 2mg Take 1 [facility] rs mg tablet 4-21 tablet by ity o f 00:00: mouth in [place] 00 the Medical morning Branch and 1 tablet in the evening. diazePAM 2 3-0 Yes 2mg Take 1 [facility] rs mg tablet 4-21 tablet by ity o f 00:00: mouth in [place] 00 the Medical morning Branch and 1 tablet in the evening. diazePAM 2 3-0 Yes 2mg Take 1 [facility] mg tablet 4-21 tablet by ity o f 00:00: mouth in [place] 00 the Medical morning Branch and 1 tablet in the evening. diazePAM 2 3-0 Yes 2mg Take 1 [facility] rs mg tablet 4-21 tablet by ity o f 00:00: mouth in [place] 00 the Medical morning Branch and 1 tablet in the evening. diazePAM 2 3-0 Yes 2mg Take 1 [facility] rs mg tablet 4-21 tablet by ity o f 00:00: mouth in [place] 00 the Medical morning Branch and 1 tablet in the evening. diazePAM 2 3-0 Yes 2mg Take 1 [facility] rs mg tablet 4-21 tablet by ity o f 00:00: mouth in [place] 00 the Medical morning Branch and 1 tablet in the evening. diazePAM 2 3-0 Yes 2mg Take 1 [facility] rs mg tablet 4-21 tablet by ity o f 00:00: mouth in [place] 00 the Medical morning Branch and 1 tablet in the evening. diazePAM 2 3-0 Yes 2mg Take 1 [facility] rs mg tablet 4-21 tablet by ity o f 00:00: mouth in [place] 00 the Medical morning Branch and 1 tablet in the evening. diazePAM 2 3-0 Yes 2mg Take 1 [facility] rs mg tablet 4-21 tablet by ity o f 00:00: mouth in [place] 00 the Medical morning Branch and 1 tablet in the evening. diazePAM 2 2022-0 Yes 2mg Take 1 [facility] rs mg tablet 4-21 tablet by ity o f 00:00: mouth in [place] 00 the Medical morning Branch and 1 tablet in the evening. diazePAM 2 3-0 Yes 2mg Take 1 [facility] rs mg tablet 4-21 tablet by ity o f 00:00: mouth in [place] 00 the Medical morning Branch and 1 tablet in the evening. diazePAM 2 2022-0 Yes 2mg Take 1 [facility] rs mg tablet 4-21 tablet by ity o f 00:00: mouth in [place] 00 the Medical morning Branch and 1 tablet in the evening. diazePAM 2 3-0 Yes 2mg Take 1 [facility] rs mg tablet 4-21 tablet by ity o f 00:00: mouth in [place] 00 the Medical morning Branch and 1 tablet in the evening. diazePAM 2 3-0 Yes 2mg Take 1 [facility] rs mg tablet 4-21 tablet by ity o f 00:00: mouth in [place] 00 the Medical morning Branch and 1 tablet in the evening. diazePAM 2 3-0 Yes 2mg Take 1 [facility] rs mg tablet 4-21 tablet by ity o f 00:00: mouth in [place] 00 the Medical morning Branch and 1 tablet in the evening. diazePAM 2 3-0 Yes 2mg Take 1 Un[facility] rs mg tablet 4-21 tablet by ity o f 00:00: mouth in [place] 00 the Medical morning Branch and 1 tablet in the evening. diazePAM 2 3-0 Yes 2mg Take 1 [facility] rs mg tablet 4-21 tablet by ity o f 00:00: mouth in [place] 00 the Medical morning Branch and 1 tablet in the evening. diazePAM 2 3-0 Yes 2mg Take 1 [facility] rs mg tablet 4-21 tablet by ity o f 00:00: mouth in [place] 00 the Medical morning Branch and 1 tablet in the evening. diazePAM 2 3-0 Yes 2mg Take 1 [facility] rs mg tablet 4-21 tablet by ity o f 00:00: mouth in [place] 00 the Medical morning Branch and 1 tablet in the evening. diazePAM 2 2022-0 Yes 2mg Take 1 [facility] rs mg tablet 4-21 tablet by ity o f 00:00: mouth in [place] 00 the Medical morning Branch and 1 tablet in the evening. diazePAM 2 2022-0 Yes 2mg Take 1 [facility] rs mg tablet 4-21 tablet by ity o f 00:00: mouth in [place] 00 the Medical morning Branch and 1 tablet in the evening. diazePAM 2 2022-0 Yes 2mg Take 1 Un[facility] rs mg tablet 4-21 tablet by ity o f 00:00: mouth in [place] 00 the Medical morning Branch and 1 tablet in the evening. diazePAM 2 2022-0 Yes 2mg Take 1 [facility] rs mg tablet 4-21 tablet by ity o f 00:00: mouth in [place] 00 the Medical morning Branch and 1 tablet in the evening. diazePAM 2 3-0 Yes 2mg Take 1 Un[facility] rs mg tablet 4-21 tablet by ity o f 00:00: mouth in [place] 00 the Medical morning Branch and 1 tablet in the evening. diazePAM 2 3-0 Yes 2mg Take 1 Un[facility] rs mg tablet 4-21 tablet by ity o f 00:00: mouth in [place] 00 the Medical morning Branch and 1 tablet in the evening. diazePAM 2 3-0 Yes 2mg Take 1 [facility] rs mg tablet 4-21 tablet by ity o f 00:00: mouth in [place] 00 the Medical morning Branch and 1 tablet in the evening. diazePAM 2 3-0 Yes 2mg Take 1 [facility] rs mg tablet 4-21 tablet by ity o f 00:00: mouth in [place] 00 the Medical morning Branch and 1 tablet in the evening. diazePAM 2 3-0 Yes 2mg Take 1 [facility] rs mg tablet 4-21 tablet by ity o f 00:00: mouth in [place] 00 the Medical morning Branch and 1 tablet in the evening. diazePAM 2 3-0 Yes 2mg Take 1 Unive rs mg tablet 4-21 tablet by ity o f 00:00: mouth in [place] 00 the Medical morning Branch and 1 tablet in the evening. diazePAM 2 2022-0 Yes 2mg Take 1 Un[facility] rs mg tablet 4-21 tablet by ity o f 00:00: mouth in [place] 00 the Medical morning Branch and 1 tablet in the evening. diazePAM 2 3-0 Yes 2mg Take 1 [facility] rs mg tablet 4-21 tablet by ity o f 00:00: mouth in [place] 00 the Medical morning Branch and 1 tablet in the evening. diazePAM 2 2022-0 Yes 2mg Take 1 [facility] rs mg tablet 4-21 tablet by ity o f 00:00: mouth in [place] 00 the Medical morning Branch and 1 tablet in the evening. diazePAM 2 3-0 Yes 2mg Take 1 [facility] rs mg tablet 4-21 tablet by ity o f 00:00: mouth in [place] 00 the Medical morning Branch and 1 tablet in the evening. diazePAM 2 3-0 Yes 2mg Take 1 [facility] rs mg tablet 4-21 tablet by ity o f 00:00: mouth in [place] 00 the Medical morning Branch and 1 tablet in the evening. diazePAM 2 2022-0 Yes 2mg Take 1 [facility] rs mg tablet 4-21 tablet by ity o f 00:00: mouth in [place] 00 the Medical morning Branch and 1 tablet in the evening. diazePAM 2 3-0 Yes 2mg Take 1 [facility] rs mg tablet 4-21 tablet by ity o f 00:00: mouth in [place] 00 the Medical morning Branch and 1 tablet in the evening. diazePAM 2 3-0 Yes 2mg Take 1 [facility] rs mg tablet 4-21 tablet by ity o f 00:00: mouth in [place] 00 the Medical morning Branch and 1 tablet in the evening. diazePAM 2 3-0 Yes 2mg Take 1 [facility] rs mg tablet 4-21 tablet by ity o f 00:00: mouth in [place] 00 the Medical morning Branch and 1 tablet in the evening. diazePAM 2 3-0 Yes 2mg Take 1 Un[facility] rs mg tablet 4-21 tablet by ity o f 00:00: mouth in [place] 00 the Medical morning Branch and 1 tablet in the evening. diazePAM 2 3-0 Yes 2mg Take 1 [facility] rs mg tablet 4-21 tablet by ity o f 00:00: mouth in [place] 00 the Medical morning Branch and 1 tablet in the evening. diazePAM 2 3-0 Yes 2mg Take 1 [facility] rs mg tablet 4-21 tablet by ity o f 00:00: mouth in [place] 00 the Medical morning Branch and 1 tablet in the evening. diazePAM 2 3-0 Yes 2mg Take 1 [facility] rs mg tablet 4-21 tablet by ity o f 00:00: mouth in [place] 00 the Medical morning Branch and 1 tablet in the evening. diazePAM 2 3-0 Yes 2mg Take 1 [facility] rs mg tablet 4-21 tablet by ity o f 00:00: mouth in [place] 00 the Medical morning Branch and 1 tablet in the evening. diazePAM 2 3-0 Yes 2mg Take 1 [facility] rs mg tablet 4-21 tablet by ity o f 00:00: mouth in [place] 00 the Medical morning Branch and 1 tablet in the evening. diazePAM 2 3-0 Yes 2mg Take 1 [facility] rs mg tablet 4-21 tablet by ity o f 00:00: mouth in [place] 00 the Medical morning Branch and 1 tablet in the evening. diazePAM 2 2022-0 Yes 2mg Take 1 [facility] rs mg tablet 4-21 tablet by ity o f 00:00: mouth in [place] 00 the Medical morning Branch and 1 tablet in the evening. diazePAM 2 3-0 Yes 2mg Take 1 Un[facility] rs mg tablet 4-21 tablet by ity o f 00:00: mouth in [place] 00 the Medical morning Branch and 1 tablet in the evening. diazePAM 2 3-0 Yes 2mg Take 1 [facility] rs mg tablet 4-21 tablet by ity o f 00:00: mouth in [place] 00 the Medical morning Branch and 1 tablet in the evening. diazePAM 2 3-0 Yes 2mg Take 1 Un[facility] rs mg tablet 4-21 tablet by ity o f 00:00: mouth in [place] 00 the Medical morning Branch and 1 tablet in the evening. diazePAM 2 3-0 Yes 2mg Take 1 Un[facility] rs mg tablet 4-21 tablet by ity o f 00:00: mouth in [place] 00 the Medical morning Branch and 1 tablet in the evening. diazePAM 2 3-0 Yes 2mg Take 1 [facility] rs mg tablet 4-21 tablet by ity o f 00:00: mouth in [place] 00 the Medical morning Branch and 1 tablet in the evening. diazePAM 2 3-0 Yes 2mg Take 1 Un[facility] rs mg tablet 4-21 tablet by ity o f 00:00: mouth in [place] 00 the Medical morning Branch and 1 tablet in the evening. diazePAM 2 3-0 Yes 2mg Take 1 Un[facility] rs mg tablet 4-21 tablet by ity o f 00:00: mouth in [place] [address] the Medical morning Branch and 1 tablet in the evening. diazePAM 2 3-0 Yes 2mg Take 1 Un[facility] rs mg tablet 4-21 tablet by ity o f 00:00: mouth in [place] [address] the Medical morning Branch and 1 tablet in the evening. diazePAM 2 3-0 Yes 2mg Take 1 Un[facility] rs mg tablet 4-21 tablet by ity o f 00:00: mouth in [place] [address] the Medical morning Branch and 1 tablet in the evening. diazePAM 2 3-0 Yes 2mg Take 1 Un[facility] rs mg tablet 4-21 tablet by ity o f 00:00: mouth in [place] [address] the Medical morning Branch and 1 tablet in the evening. omeprazole 2023-0 Yes [id number] 40mg Take 1 [facility] 40 mg 4-19 capsule by ity of capsule 00:00: mouth in [place] [address] the Medical morning Branch and 1 capsule in the evening. omeprazole 2023-0 Yes [id number] 40mg Take 1 [facility] 40 mg 4-19 capsule by ity of capsule 00:00: mouth in [place] [address] the Medical morning Branch and 1 capsule in the evening. omeprazole 2023-0 Yes [id number] 40mg Take 1 [facility] 40 mg 4-19 capsule by ity of capsule 00:00: mouth in [place] [address] the Medical morning Branch and 1 capsule in the evening. omeprazole 2023-0 Yes [id number] 40mg Take 1 [facility] 40 mg 4-19 capsule by ity of capsule 00:00: mouth in [address] Medical morning Branch and 1 capsule in the evening. omeprazole 2023-0 Yes [id number] 40mg Take 1 [facility] 40 mg 4-19 capsule by ity of capsule 00:00: mouth in [address] Medical morning [place] and 1 capsule in the evening. omeprazole 2023-0 Yes [id number] 40mg Take 1 [facility] 40 mg 4-19 capsule by ity of capsule 00:00: mouth in [address] Medical morning [place] and 1 capsule in the evening. omeprazole 2023-0 Yes [id number] 40mg Take 1 [facility] 40 mg 4-19 capsule by ity of capsule 00:00: mouth in [place] [address] the Medical morning Branch and 1 capsule in the evening. omeprazole 2023-0 Yes [id number] 40mg Take 1 [facility] 40 mg 4-19 capsule by ity of capsule 00:00: mouth in [place] [address] the Medical morning Branch and 1 capsule in the evening. omeprazole 2023-0 Yes [id number] 40mg Take 1 [facility] 40 mg 4-19 capsule by ity of capsule 00:00: mouth in [place] [address] the Medical morning Branch and 1 capsule in the evening. omeprazole 2023-0 Yes [id number] 40mg Take 1 [facility] 40 mg 4-19 capsule by ity of capsule 00:00: mouth in [place] [address] the Medical morning Branch and 1 capsule in the evening. omeprazole 2023-0 Yes [id number] 40mg Take 1 [facility] 40 mg 4-19 capsule by ity of capsule 00:00: mouth in [place] [address] the Medical morning [place] and 1 capsule in the evening. omeprazole 2023-0 Yes [id number] 40mg Take 1 [facility] 40 mg 4-19 capsule by ity of capsule 00:00: mouth in [address] Medical morning [place] and 1 capsule in the evening. omeprazole 2023-0 Yes [id number] 40mg Take 1 [facility] 40 mg 4-19 capsule by ity of capsule 00:00: mouth in [address] Medical morning [place] and 1 capsule in the evening. omeprazole 2023-0 Yes [id number] 40mg Take 1 [facility] 40 mg 4-19 capsule by ity of capsule 00:00: mouth in [place] [address] the Medical morning [place] and 1 capsule in the evening. omeprazole 2023-0 Yes [id number] 40mg Take 1 [facility] 40 mg 4-19 capsule by ity of capsule 00:00: mouth in [address] Medical morning [place] and 1 capsule in the evening. omeprazole 2023-0 Yes [id number] 40mg Take 1 [facility] 40 mg 4-19 capsule by ity of capsule 00:00: mouth in [address] Medical morning [place] and 1 capsule in the evening. omeprazole 2023-0 Yes [id number] 40mg Take 1 [facility] 40 mg 4-19 capsule by ity of capsule 00:00: mouth in [address] Medical morning [place] and 1 capsule in the evening. omeprazole 2023-0 Yes [id number] 40mg Take 1 [facility] 40 mg 4-19 capsule by ity of capsule 00:00: mouth in [place] [address] the Medical morning Branch and 1 capsule in the evening. omeprazole 2023-0 Yes [id number] 40mg Take 1 [facility] 40 mg 4-19 capsule by ity of capsule 00:00: mouth in [place] [address] the Medical morning [place] and 1 capsule in the evening. omeprazole 2023-0 Yes [id number] 40mg Take 1 [facility] 40 mg 4-19 capsule by ity of capsule 00:00: mouth in [place] [address] the Medical morning Branch and 1 capsule in the evening. omeprazole 2023-0 Yes [id number] 40mg Take 1 [facility] 40 mg 4-19 capsule by ity of capsule 00:00: mouth in [place] [address] the Medical morning [place] and 1 capsule in the evening. omeprazole 2023-0 Yes [id number] 40mg Take 1 [facility] 40 mg 4-19 capsule by ity of capsule 00:00: mouth in [address] morning [place] and 1 capsule in the evening. omeprazole 2023-0 Yes [id number] 40mg Take 1 [facility] 40 mg 4-19 capsule by ity of capsule 00:00: mouth in [address] morning [place] and 1 capsule in the evening. omeprazole 2023-0 Yes [id number] 40mg Take 1 [facility] 40 mg 4-19 capsule by ity of capsule 00:00: mouth in [address] morning [place] and 1 capsule in the evening. omeprazole 2023-0 Yes [id number] 40mg Take 1 [facility] 40 mg 4-19 capsule by ity of capsule 00:00: mouth in [address] morning [place] and 1 capsule in the evening. omeprazole 2023-0 Yes [id number] 40mg Take 1 [facility] 40 mg 4-19 capsule by ity of capsule 00:00: mouth in [address] morning [place] and 1 capsule in the evening. omeprazole 2023-0 Yes [id number] 40mg Take 1 [facility] 40 mg 4-19 capsule by ity of capsule 00:00: mouth in [address] morning [place] and 1 capsule in the evening. omeprazole 2023-0 Yes [id number] 40mg Take 1 [facility] 40 mg 4-19 capsule by ity of capsule 00:00: mouth in [address] morning [place] and 1 capsule in the evening. omeprazole 2023-0 Yes [id number] 40mg Take 1 [facility] 40 mg 4-19 capsule by ity of capsule 00:00: mouth in [place] 00 the Medical morning Branch and 1 capsule in the evening. omeprazole 3-0 Yes [id number] 40mg Take 1 [facility] 40 mg 4-19 capsule by ity of capsule 00:00: mouth in [place] 00 the Medical morning Branch and 1 capsule in the evening. omeprazole 3-0 Yes [id number] 40mg Take 1 [facility] 40 mg 4-19 capsule by ity of capsule 00:00: mouth in [place] 00 the Medical morning Branch and 1 capsule in the evening. omeprazole 3-0 Yes [id number] 40mg Take 1 [facility] 40 mg 4-19 capsule by ity of capsule 00:00: mouth in [place] [address] the Medical morning [place] and 1 capsule in the evening. omeprazole 2022-0 Yes [id number] 40mg Take 1 [facility] 40 mg 4-19 capsule by ity of capsule 00:00: mouth in [place] [address] the Medical morning [place] and 1 capsule in the evening. omeprazole 2022-0 2023- No [id number] 40mg Take 1 [facility] 40 mg 4-19 06-05 capsule by ity of capsule 00:00: 00:00 mouth in [place] 00 :00 the Medical morning [place] and 1 capsule in the evening. omeprazole 3-0 2023- No [id number] 40mg Take 1 [facility] 40 mg 4-19 06-05 capsule by ity of capsule 00:00: 00:00 mouth in [place] 00 :00 the Medical morning Branch and 1 capsule in the evening. omeprazole 2022-0 2023- No [id number] 40mg Take 1 [facility] 40 mg 4-19 06-05 capsule by ity of capsule 00:00: 00:00 mouth in [place] 00 :00 the Medical morning Branch and 1 capsule in the evening. IMITREX [...] 09:34: migraines [place] [facility] 00 Medical Branch [facility] Yes Apply to [place] [...] 09:34: migraines [place] [facility] 00 Medical Branch [facility] Yes Apply to [place] 0.1% [...] 09:34: migraines [place] [facility] 00 Medical Branch tricinolo Yes Apply to [place] 0.1% in 4-18 affected ity o f aquaphor 09:34: area(s). [place] (COMPOUNDED 00 Medical ) ointment Branch cariprazine Yes 1.5mg Take 1.5 U nivers (VRAYLAR) 4-18 mg by ity of 1.5 mg (1)- 09:34: mouth [place] 3 mg (6) 00 every Medical CpPk morning. Branch IMITREX 5 2023-0 Yes as needed Uni vers MG/ACTUATIO 4-18 for ity of N NASAL 09:34: migraines [place] [facility] Medical Branch triamcinolo Yes [...] NASAL 09:34: migraines [place] [facility] Medical Branch triamcinolo Yes [...] NASAL 09:34: migraines [place] [facility] Medical Branch triamcinolo Yes Apply to [place] 0.1% in -18 affected ity o f aquaphor 09:34: area(s). [place] (COMPOUNDED Medical ) ointment Branch cariprazine Yes [...] every Medical CpPk morning. Branch IMITREX 5 0 Yes as needed Uni vers MG/ACTUATIO 4-18 for ity of N NASAL 09:34: migraines [place] [facility] Medical Branch triamcinolo Yes Apply to [place] 0.1% in -18 affected ity o f aquaphor 09:34: area(s). [place] (COMPOUNDED Medical ) ointment Branch cariprazine Yes 1.5mg Take 1.5 U nivers (VRAYLAR) 4-18 mg by ity of 1.5 mg (1)- 09:34: mouth [place] 3 mg (6) 00 every Medical CpPk morning. Branch IMITREX 5 0 Yes as needed Uni vers MG/ACTUATIO 4-18 for ity of N NASAL 09:34: migraines [place] [facility] Medical Branch triamcinolo Yes [...] NASAL 09:34: migraines [place] [facility] Medical Branch triamcinolo Yes [...] 09:34: migraines [place] [facility] 00 Medical Branch [facility] Yes Apply to [place] 0.1% in 4-18 affected ity o [...] 09:34: migraines [place] SPR[facility] 00 Medical Branch [facility] Yes Apply to [place] 0.1% [...] 09:34: migraines [place] SPR[facility] 00 Medical Branch tricinolo Yes Apply to [place] 0.1% in 4-18 affected ity o f aquaphor 09:34: area(s). [place] (COMPOUNDED 00 Medical ) ointment Branch cariprazine Yes 1.5mg Take 1.5 U nivers (VRAYLAR) 4-18 mg by ity of 1.5 mg (1)- 09:34: mouth [place] 3 mg (6) 00 every Medical CpPk morning. Branch IMITREX 5 2023-0 Yes as needed Uni vers MG/ACTUATIO 4-18 for ity of N NASAL 09:34: migraines [place] [facility] Medical Branch triamcinolo Yes [...] NASAL 09:34: migraines [place] [facility] Medical Branch triamcinolo Yes [...] NASAL 09:34: migraines [place] [facility] Medical Branch triamcinolo Yes Apply to [place] 0.1% in -18 affected ity o f aquaphor 09:34: area(s). [place] (COMPOUNDED Medical ) ointment Branch cariprazine Yes [...] every Medical CpPk morning. Branch IMITREX 5 0 Yes as needed Uni vers MG/ACTUATIO 4-18 for ity of N NASAL 09:34: migraines [place] [facility] Medical Branch triamcinolo Yes Apply to [place] 0.1% in -18 affected ity o f aquaphor 09:34: area(s). [place] (COMPOUNDED Medical ) ointment Branch cariprazine Yes 1.5mg Take 1.5 U nivers (VRAYLAR) 4-18 mg by ity of 1.5 mg (1)- 09:34: mouth [place] 3 mg (6) 00 every Medical CpPk morning. Branch IMITREX 5 0 Yes as needed Uni vers MG/ACTUATIO 4-18 for ity of N NASAL 09:34: migraines [place] [facility] Medical Branch triamcinolo Yes [...] NASAL 09:34: migraines [place] [facility] Medical Branch triamcinolo Yes [...] 09:34: migraines [place] [facility] 00 Medical Branch [facility] Yes Apply to [place] [...] 09:34: migraines [place] SPR[facility] 00 Medical Branch [facility] Yes Apply to [place] 0.1% [...] 09:34: migraines [place] SPRY 00 Medical Branch tricinolo Yes Apply to [place] 0.1% in 4-18 affected ity o f aquaphor 09:34: area(s). [place] (COMPOUNDED 00 Medical ) ointment Branch cariprazine Yes 1.5mg Take 1.5 U nivers (VRAYLAR) 4-18 mg by ity of 1.5 mg (1)- 09:34: mouth [place] 3 mg (6) 00 every Medical CpPk morning. Branch IMITREX 5 2023-0 Yes as needed Uni vers MG/ACTUATIO 4-18 for ity of N NASAL 09:34: migraines [place] [facility] Medical Branch triamcinolo Yes [...] NASAL 09:34: migraines [place] [facility] Branch triamcinolo Yes [...] NASAL 09:34: migraines [place] [facility] Branch triamcinolo Yes Apply to [place] 0.1% in -18 affected ity o f aquaphor 09:34: area(s). [place] (COMPOUND[facility] Medical ) ointment Branch cariprazine Yes [...] every Medical CpPk morning. Branch IMITREX 5 0 Yes as needed Uni vers MG/ACTUATIO 4-18 for ity of N NASAL 09:34: migraines [place] SPR[facility] Medical Branch triamcinolo Yes Apply to [place] 0.1% in -18 affected ity o f aquaphor 09:34: area(s). [place] (COMPOUND[facility] Medical ) ointment Branch cariprazine Yes 1.5mg Take 1.5 U nivers (VRAYLAR) 4-18 mg by ity of 1.5 mg (1)- 09:34: mouth [place] 3 mg (6) 00 every Medical CpPk morning. Branch IMITREX 5 0 Yes as needed Uni vers MG/ACTUATIO 4-18 for ity of N NASAL 09:34: migraines [place] [facility] Medical Branch triamcinolo Yes [...] NASAL 09:34: migraines [place] [facility] Medical Branch triamcinolo Yes [...] 09:34: migraines [place] [facility] 00 Medical Branch [facility] Yes Apply to [place] [...] 09:34: migraines [place] SPR[facility] 00 Medical Branch [facility] Yes Apply to [place] 0.1% [...] 09:34: migraines [place] SPR[facility] 00 Medical Branch tricinolo Yes Apply to [place] 0.1% [...] NASAL 09:34: migraines [place] [facility] Medical Branch triamcinolo Yes [...] NASAL 09:34: migraines [place] [facility] Medical Branch triamcinolo Yes Apply to [place] 0.1% in 4-18 affected ity o f aquaphor 09:34: area(s). [place] (COMPOUNDED Medical ) ointment Branch cariprazine Yes 1.5mg Take 1.5 U nivers (VRAYLAR) 4-18 mg by ity of 1.5 mg (1)- 09:34: mouth [place] 3 mg (6) 00 every Medical CpPk morning. Branch IMITREX 5 Yes as needed Uni vers MG/ACTUATIO 4-18 for ity of N NASAL 09:34: migraines [place] [facility] Medical Branch triamcinolo Yes Apply to [place] 0.1% in -18 affected ity o f aquaphor 09:34: area(s). [place] (COMPOUNDED Medical ) ointment Branch IMITREX 5 Yes as needed Uni vers MG/ACTUATIO 4-18 for ity of N NASAL 09:34: migraines [place] SPR[facility] Medical Branch triamcinolo Yes Apply to [place] 0.1% in 4-18 affected ity o f aquaphor 09:34: area(s). [place] (COMPOUNDED 00 Medical ) ointment Branch IMITREX 5 Yes as needed Uni vers MG/ACTUATIO 4-18 for ity of N NASAL 09:34: migraines [place] SPR[facility] 00 Medical Branch [facility] Yes Apply to [place] 0.1% in -18 affected ity o f aquaphor 09:34: area(s). [place] (COMPOUNDED 00 Medical ) ointment Branch IMITREX 5 Yes as needed Uni vers MG/ACTUATIO 4-18 for ity of N NASAL 09:34: migraines [place] [facility] [place] 0.1% in -18 affected ity o f aquaphor 09:34: area(s). [place] (COMPOUNDED 00 Medical ) ointment Branch IMITREX 5 Yes as needed Uni vers MG/ACTUATIO 4-18 for ity of N NASAL 09:34: migraines [place] SPR[facility] 00 Medical Branch [facility] Yes Apply to [place] 0.1% in -18 affected ity o f aquaphor 09:34: area(s). [place] (COMPOUNDED 00 Medical ) ointment Branch IMITREX 5 Yes as needed Uni vers MG/ACTUATIO 4-18 for ity of N NASAL 09:34: migraines [place] [facility] [place] 0.1% in -18 affected ity o f aquaphor 09:34: area(s). [place] (COMPOUNDED 00 Medical ) ointment Branch IMITREX 5 Yes as needed Uni vers MG/ACTUATIO 4-18 for ity of N NASAL 09:34: migraines [place] [facility] [place] 0.1% in -18 affected ity o f aquaphor 09:34: area(s). [place] (COMPOUNDED 00 Medical ) ointment Branch IMITREX 5 Yes as needed Uni vers MG/ACTUATIO 4-18 for ity of N NASAL 09:34: migraines [place] SPRY 00 Medical Branch tricinolo Yes Apply to [place] 0.1% in -18 affected ity o f aquaphor 09:34: area(s). [place] (COMPOUNDED 00 Medical ) ointment Branch IMITREX 5 Yes as needed Uni vers MG/ACTUATIO 4-18 for ity of N NASAL 09:34: migraines [place] [facility] 00 [facility] Branch [facility] Apply to [place] 0.1% in -18 affected ity o f aquaphor 09:34: area(s). [place] (COMPOUNDED 00 Medical ) ointment Branch IMITREX 5 Yes as needed Uni vers MG/ACTUATIO 4-18 for ity of N NASAL 09:34: migraines [place] SPR[facility] 00 Medical Branch [facility] Apply to [place] 0.1% in -18 affected ity o f aquaphor 09:34: area(s). [place] (COMPOUNDED 00 Medical ) ointment Branch IMITREX 5 Yes as needed Uni vers MG/ACTUATIO 4-18 for ity of N NASAL 09:34: migraines [place] SPR[facility] 00 Medical Branch [facility] Apply to [place] 0.1% in -18 affected ity o f aquaphor 09:34: area(s). [place] (COMPOUNDED 00 Medical ) ointment Branch IMITREX 5 Yes as needed Uni vers MG/ACTUATIO 4-18 for ity of N NASAL 09:34: migraines [place] SPR[facility] 00 Medical Branch [facility] Yes Apply to [place] 0.1% in -18 affected ity o f aquaphor 09:34: area(s). [place] (COMPOUNDED 00 Medical ) ointment Branch IMITREX 5 Yes as needed Uni vers MG/ACTUATIO 4-18 for ity of N NASAL 09:34: migraines [place] SPRY 00 Medical Branch triamcinolo Yes Apply to [place] 0.1% in 4-18 affected ity o f aquaphor 09:34: area(s). [place] (COMPOUNDED 00 Medical ) ointment Branch IMITREX 5 Yes as needed Uni vers MG/ACTUATIO 4-18 for ity of N NASAL 09:34: migraines [place] SPRY 00 Medical Branch triamcinolo Yes Apply to [place] 0.1% in 4-18 affected ity o f aquaphor 09:34: area(s). [place] (COMPOUNDED 00 Medical ) ointment Branch IMITREX 5 Yes as needed Uni vers MG/ACTUATIO 4-18 for ity of N NASAL 09:34: migraines [place] SPRY 00 Medical Branch triamcinolo Yes Apply to [place] 0.1% in 4-18 affected ity o f aquaphor 09:34: area(s). [place] (COMPOUNDED 00 Medical ) ointment Branch IMITREX 5 Yes as needed Uni vers MG/ACTUATIO 4-18 for ity of N NASAL 09:34: migraines [place] SPRY 00 Medical Branch triamcinolo Yes Apply to [place] 0.1% in 4-18 affected ity o f aquaphor 09:34: area(s). [place] (COMPOUNDED 00 Medical ) ointment Branch IMITREX 5 2022- Yes as needed Uni vers MG/ACTUATIO 4-18 for ity of N NASAL 09:34: migraines [place] SPRY 00 Medical Branch triamcinolo Yes Apply to [place] 0.1% in 4-18 affected ity o f aquaphor 09:34: area(s). [place] (COMPOUNDED 00 Medical ) ointment Branch IMITREX 5 Yes as needed Uni vers MG/ACTUATIO 4-18 for ity of N NASAL 09:34: migraines [place] SPRY 00 Medical Branch triamcinolo Yes Apply to [place] 0.1% in 4-18 affected ity o f aquaphor 09:34: area(s). [place] (COMPOUNDED 00 Medical ) ointment Branch IMITREX 5 2022- Yes as needed Uni vers MG/ACTUATIO 4-18 for ity of N NASAL 09:34: migraines [place] SPRY 00 Medical Branch triamcinolo Yes Apply to [place] 0.1% in 4-18 affected ity o f aquaphor 09:34: area(s). [place] (COMPOUNDED 00 Medical ) ointment Branch dicyclomine No 20mg 20 mg, Uni vers (BENTYL) [...] 15 Minutes, 100 mL iopamidol 2022- No [id number] 80mL 80 mL, Univers (ISOVUE 10-29 Intravenou ity o f 370-500 mL) 09:36: 09:30 s, ONCE, 1 [place] injection 00 :00 dose, On Medica l 80 mL [place] Branch 10/29/22 at 0445, Routine FENTanyl PF 2022- No 50ug 50 mcg, [place] (SUBLIMAZE 10-29 Slow IV ity o f (PF)) 09:30: 09:16 Push, [place] injection 00 :00 ONCE, 1 Medical 50 mcg dose, On Branch Maisha 10/29/22 at 0430, LESLIE NaCl 0.9% 2022- No 1000mL at 999 Uni vers (NS) bolus 10-29 mL/hr, ity of infusion 09:30: 10:19 1,000 mL, [place] 1,000 mL 00 :00 IV Medical Infusion, Branch ONCE, 1 dose, On Maisha 10/29/22 at 0430, LESLIE alum-mag 2022- No 30mL 30 mL, Univer s hydroxide-s 10-29 Oral, ity of imeth 08:45: 10:59 ONCE, 1 [place] (MAALOX 00 :00 dose, On Medical PLUS / Maisha Branch MAG-AL 10/29/22 at PLUS) 0345, LESLIE 200-200-20 mg/5 mL suspension 30 mL pantoprazol 0 2022- No 40mg 40 mg, Uni vers e 10-29 Slow IV ity of (PROTONIX) 08:45: 09:15 Push, [place] injection 00 :00 ONCE, 1 Medical 40 mg dose, On Branch [facility] 10/29/22 at 0345 proMETHazin 2022-0 2022- No 25mg 25 mg, IV Univers e 10-29 Piggyback, ity of (PHENERGAN) 08:45: 10:19 at 200 [place] 25 mg in NS 00 :00 mL/hr Medical 50 mL IV Administer Branc h piggyback over 15 (CNR) Minutes, ONCE, 1 dose, On [place] 10/29/22 at 0345, LESLIE dicyclomine 2022-0 2022- No [id number] 20mg Take 1 Univers 20 mg 10-29 tablet by ity of tablet 00:00: 04:59 mouth 4 [place] 00 :00 ([facility]) Medical times Branch daily for 7 days. dicyclomine 2022-0 202- No [id number] 20mg Take 1 Univers 20 mg 10-29 tablet by ity of tablet 00:00: 04:59 mouth 4 [place] 00 :00 ([facility]) Medical times Branch daily for 7 days. dicyclomine 2022-0 202- No [id number] 20mg Take 1 Univers 20 mg 10-29 tablet by ity of tablet 00:00: 04:59 mouth 4 [place] 00 :00 ([facility]) Medical times Branch daily for 7 days. dicyclomine 2023-0 2023- No [id number] 20mg Take 1 Univers 20 mg 10-29-21 tablet by ity of tablet 00:00: 04:59 mouth 4 [place] 00 :00 ([facility]) Medical times Branch daily for 7 days. dicyclomine 2023-0 2023- No [id number] 20mg Take 1 Univers 20 mg 10-29-21 tablet by ity of tablet 00:00: 04:59 mouth 4 [place] 00 :00 ([facility]) Medical times Branch daily for 7 days. dicyclomine 2023-0 2023- No [id number] 20mg Take 1 Univers 20 mg 10-29-21 tablet by ity of tablet 00:00: 04:59 mouth 4 [place] 00 :00 (four) Medical times Branch daily for 7 days. dicyclomine 2022- No [id number] 20mg Take 1 Univers 20 mg 10-29 tablet by ity of tablet 00:00: 04:59 mouth 4 00 :00 (four) Medical times Branch daily for 7 days. ketorolac 2022-0 2022- No 30mg 30 mg, Unive rs (TORADOL) 10-28 Slow IV ity of injection 01:45: 01:41 Push, [place] 30 mg 00 :00 ONCE, 1 Medical dose, On Branch Wed10/27/22 at 2044, Routine cyclobenzap 2022- No 10mg 10 mg, Uni vers rine 10-28 Oral, ity of (FLEXERIL) 01:45: 01:37 ONCE, 1 [place] tablet 10 00 :00 dose, On Medica l mg [facility] 10/27/22 at 2044, Routine ketorolac 2022- No 30mg 30 mg, Unive rs (TORADOL) 10-28 Slow IV ity of injection 01:45: 01:43 Push, [place] 30 mg 00 :00 ONCE, 1 Medical dose, On Branch Wed10/27/22 at 2044, Routine ibuprofen 0 Yes [id number] 800mg Take 1 U nivers 800 mg 4-11 tablet by ity of tablet 00:00: mouth [place] 00 every 8 Medical (eight) Branch hours as needed for Pain (scale 4-6) or Temp > 38.5 C. cyclobenzap 2022-0 Yes [id number] 10mg Take 1 Univers rine 10 mg 4-11 tablet by ity of tablet 00:00: mouth in [place] 00 the Medical morning Branch and 1 tablet at noon and 1 tablet in the evening. ibuprofen 202-0 Yes [id number] 800mg Take 1 U nivers 800 mg 4-11 tablet by ity of tablet 00:00: mouth [place] 00 every 8 Medical (eight) Branch hours as needed for Pain (scale 4-6) or Temp > 38.5 C. cyclobenzap 2022-0 Yes [id number] 10mg Take 1 Univers rine 10 mg 4-11 tablet by ity of tablet 00:00: mouth in [place] 00 the Medical morning Branch and 1 tablet at noon and 1 tablet in the evening. ibuprofen 2023-0 Yes [id number] 800mg Take 1 U nivers 800 mg 4-11 tablet by ity of tablet 00:00: mouth [place] 00 every 8 Medical (eight) Branch hours as needed for Pain (scale 4-6) or Temp > 38.5 C. cyclobenzap 2023-0 Yes [id number] 10mg Take 1 Univers rine 10 mg 4-11 tablet by ity of tablet 00:00: mouth in [place] 00 the Medical morning Branch and 1 tablet at noon and 1 tablet in the evening. ibuprofen 2023-0 Yes [id number] 800mg Take 1 U nivers 800 mg 4-11 tablet by ity of tablet 00:00: mouth [place] every 8 Medical (eight) Branch hours as needed for Pain (scale 4-6) or Temp > 38.5 C. cyclobenzap 3-0 Yes [id number] 10mg Take 1 Univers rine 10 mg 4-11 tablet by ity of tablet 00:00: mouth in [place] the Medical morning Branch and 1 tablet at noon and 1 tablet in the evening. ibuprofen 2022-0 Yes [id number] 800mg Take 1 U nivers 800 mg 4-11 tablet by ity of tablet 00:00: mouth [place] every 8 Medical (eight) Branch hours as needed for Pain (scale 4-6) or Temp > 38.5 C. cyclobenzap 3-0 Yes [id number] 10mg Take 1 Univers rine 10 mg 4-11 tablet by ity of tablet 00:00: mouth in [place] the Medical morning Branch and 1 tablet at noon and 1 tablet in the evening. ibuprofen 2023-0 Yes [id number] 800mg Take 1 U nivers 800 mg 4-11 tablet by ity of tablet 00:00: mouth [place] 00 every 8 Medical (eight) Branch hours as needed for Pain (scale 4-6) or Temp > 38.5 C. cyclobenzap 2023-0 Yes [id number] 10mg Take 1 Univers rine 10 mg 4-11 tablet by ity of tablet 00:00: mouth in [place] 00 the Medical morning Branch and 1 tablet at noon and 1 tablet in the evening. ibuprofen 2023-0 Yes [id number] 800mg Take 1 U nivers 800 mg 4-11 tablet by ity of tablet 00:00: mouth [place] 00 every 8 Medical (eight) Branch hours as needed for Pain (scale 4-6) or Temp > 38.5 C. cyclobenzap 2023-0 Yes [id number] 10mg Take 1 Univers rine 10 mg 4-11 tablet by ity of tablet 00:00: mouth in [place] 00 the Medical morning Branch and 1 tablet at noon and 1 tablet in the evening. ibuprofen 2023-0 Yes [id number] 800mg Take 1 U nivers 800 mg 4-11 tablet by ity of tablet 00:00: mouth [place] 00 every 8 Medical (eight) Branch hours as needed for Pain (scale 4-6) or Temp > 38.5 C. cyclobenzap 2022-0 Yes [id number] 10mg Take 1 Univers rine 10 mg 4-11 tablet by ity of tablet 00:00: mouth in [place] 00 the Medical morning Branch and 1 tablet at noon and 1 tablet in the evening. ibuprofen 2022-0 Yes [id number] 800mg Take 1 U nivers 800 mg 4-11 tablet by ity of tablet 00:00: mouth [place] 00 every 8 Medical (eight) Branch hours as needed for Pain (scale 4-6) or Temp > 38.5 C. cyclobenzap 2022-0 Yes [id number] 10mg Take 1 Univers rine 10 mg 4-11 tablet by ity of tablet 00:00: mouth in [place] 00 the Medical morning Branch and 1 tablet at noon and 1 tablet in the evening. ibuprofen 3-0 Yes [id number] 800mg Take 1 U nivers 800 mg 4-11 tablet by ity of tablet 00:00: mouth [place] 00 every 8 Medical (eight) Branch hours as needed for Pain (scale 4-6) or Temp > 38.5 C. cyclobenzap 2023-0 Yes [id number] 10mg Take 1 Univers rine 10 mg 4-11 tablet by ity of tablet 00:00: mouth in [place] 00 the Medical morning Branch and 1 tablet at noon and 1 tablet in the evening. ibuprofen 2023-0 Yes [id number] 800mg Take 1 U nivers 800 mg 4-11 tablet by ity of tablet 00:00: mouth [place] 00 every 8 Medical (eight) Branch hours as needed for Pain (scale 4-6) or Temp > 38.5 C. cyclobenzap Yes [id number] 10mg Take 1 Univers rine 10 mg 4-11 tablet by ity of tablet 00:00: mouth in [place] 00 the Medical morning Branch and 1 tablet at noon and 1 tablet in the evening. ibuprofen Yes [id number] 800mg Take 1 U nivers 800 mg 4-11 tablet by ity of tablet 00:00: mouth [place] 00 every 8 Medical (eight) Branch hours as needed for Pain (scale 4-6) or Temp > 38.5 C. cyclobenzap Yes [id number] 10mg Take 1 Univers rine 10 mg 4-11 tablet by ity of tablet 00:00: mouth in [place] 00 the Medical morning Branch and 1 tablet at noon and 1 tablet in the evening. ibuprofen Yes [id number] 800mg Take 1 U nivers 800 mg 4-11 tablet by ity of tablet 00:00: mouth [place] 00 every 8 Medical (eight) Branch hours as needed for Pain (scale 4-6) or Temp > 38.5 C. cyclobenzap Yes [id number] 10mg Take 1 Univers rine 10 mg 4-11 tablet by ity of tablet 00:00: mouth in [place] 00 the Medical morning Branch and 1 tablet at noon and 1 tablet in the evening. ibuprofen 2022- No [id number] 800mg Take 1 Univers 800 mg 4-11 05-01 tablet by ity of tablet 00:00: 00:00 mouth [place] 00 :00 every 8 Medical (eight) Branch hours as needed for Pain (scale 4-6) or Temp > 38.5 C. cyclobenzap 2022- No [id number] 10mg Take 1 Univers rine 10 mg 4-11 05-01 tablet by ity of tablet 00:00: 00:00 mouth in [place] 00 :00 the Medical morning Branch and 1 tablet at noon and 1 tablet in the evening. ibuprofen 2022- No [id number] 800mg Take 1 Univers 800 mg 4-11 05-01 tablet by ity of tablet 00:00: 00:00 mouth [place] 00 :00 every 8 Medical (eight) Branch hours as needed for Pain (scale 4-6) or Temp > 38.5 C. cyclobenzap 2022- No [id number] 10mg Take 1 Univers rine 10 mg 10-27 tablet by ity of tablet 00:00: 00:00 mouth in [place] 00 :00 the morning Branch and 1 tablet at noon and 1 tablet in the evening. iopamidol 2022- No [id number] 65mL 65 mL, Univers (ISOVUE 10-20 Intravenou ity o f 370-500 mL) 23:15: 23:15 s, ONCE, 1 [place] injection 00 :00 dose, On Medica l 65 mL [facility] 10/20/22 Branch at 1815, Routine naproxen 2022- No 500mg 500 mg, Univ ers (NAPROSYN) 10-20 Oral, ity of tablet 500 19:30: 21:25 ONCE, 1 [place] mg 00 :00 dose, On Medical [facility] 10/20/22 Branch at 1625, Routine pantoprazol 0 Yes [id number] 40mg Take 1 Univers e 40 mg EC 3-27 tablet by ity of tablet 00:00: mouth in [place] the [facility] morning Branch and 1 tablet in the evening. pantoprazol 2022-0 Yes [id number] 40mg Take 1 Univers e 40 mg EC 3-27 tablet by ity of tablet 00:00: mouth in [place] the [facility] morning Branch and 1 tablet in the evening. pantoprazol 2022-0 Yes [id number] 40mg Take 1 Univers e 40 mg EC 3-27 tablet by ity of tablet 00:00: mouth in [place] the [facility] morning Branch and 1 tablet in the evening. pantoprazol 2022-0 Yes [id number] 40mg Take 1 Univers e 40 mg EC 3-27 tablet by ity of tablet 00:00: mouth in [place] the [facility] morning Branch and 1 tablet in the evening. pantoprazol 2023-0 Yes [id number] 40mg Take 1 Univers e 40 mg EC 3-27 tablet by ity of tablet 00:00: mouth in [place] [address] the [facility] morning [place] and 1 tablet in the evening. pantoprazol 2022-0 Yes [id number] 40mg Take 1 Univers e 40 mg EC 3-27 tablet by ity of tablet 00:00: mouth in [place] 00 the Medical morning Branch and 1 tablet in the evening. pantoprazol 2023-0 Yes [id number] 40mg Take 1 Univers e 40 mg EC 3-27 tablet by ity of tablet 00:00: mouth in [place] 00 the Medical morning Branch and 1 tablet in the evening. pantoprazol 2023-0 Yes [id number] 40mg Take 1 Univers e 40 mg EC 3-27 tablet by ity of tablet 00:00: mouth in [place] 00 the Medical morning Branch and 1 tablet in the evening. pantoprazol 2023-0 Yes [id number] 40mg Take 1 Univers e 40 mg EC 3-27 tablet by ity of tablet 00:00: mouth in [place] 00 the Medical morning Branch and 1 tablet in the evening. pantoprazol 2023-0 Yes [id number] 40mg Take 1 Univers e 40 mg EC 3-27 tablet by ity of tablet 00:00: mouth in [place] [address] the Medical morning Branch and 1 tablet in the evening. pantoprazol 2023-0 Yes [id number] 40mg Take 1 Univers e 40 mg EC 3-27 tablet by ity of tablet 00:00: mouth in [place] [address] the Medical morning Branch and 1 tablet in the evening. pantoprazol 2023-0 Yes [id number] 40mg Take 1 Univers e 40 mg EC 3-27 tablet by ity of tablet 00:00: mouth in [place] [address] the Medical morning Branch and 1 tablet in the evening. pantoprazol 2023-0 Yes [id number] 40mg Take 1 Univers e 40 mg EC 3-27 tablet by ity of tablet 00:00: mouth in [place] 00 the Medical morning Branch and 1 tablet in the evening. pantoprazol 2023-0 Yes [id number] 40mg Take 1 Univers e 40 mg EC 3-27 tablet by ity of tablet 00:00: mouth in [place] 00 the Medical morning Branch and 1 tablet in the evening. pantoprazol 2023-0 2023- No [id number] 40mg Take 1 Univers e 40 mg EC 3-27 04-19 tablet by ity of tablet 00:00: 00:00 mouth in [place] 00 :00 the Medical morning Branch and 1 tablet in the evening. pantoprazol 2023-0 2023- No [id number] 40mg Take 1 Univers e 40 mg EC 3-27 04-19 tablet by ity of tablet 00:00: 00:00 mouth in [place] 00 :00 the Medical morning Branch and 1 tablet in the evening. pantoprazol 2022- No [id number] 40mg Take 1 Univers e 40 mg EC 10-12 tablet by ity of tablet 00:00: 00:00 mouth in [place] 00 :00 the Medical morning Branch and 1 tablet in the evening. iopamidol 2022- No [id number] 100mL 100 mL, Univers (ISOVUE 10-09 Intravenou ity o f 370-500 mL) 06:15: [...] 10/08/22 at 2345, [place] ibuprofen 2022-0 Yes [id number] 600mg Take 1 U nivers 600 mg 3-24 tablet by ity of tablet 00:00: mouth [place] [address] every 6 Medical (six) Branch hours as needed for Pain (scale 4-6). ibuprofen 2022-0 Yes [id number] 600mg Take 1 U nivers 600 mg 3-24 tablet by ity of tablet 00:00: mouth [place] [address] every 6 Medical (six) Branch hours as needed for Pain (scale 4-6). esomeprazol 2022-0 Yes [id number] 20mg Take 20 mg Univers e 20 mg 3-24 by mouth ity of capsule 00:00: daily [place] 00 before a Medical meal. Branch ibuprofen 2023-0 Yes [id number] 600mg Take 1 U nivers 600 mg 3-24 tablet by ity of tablet 00:00: mouth [place] 00 every 6 Medical (six) Branch hours as needed for Pain (scale 4-6). ibuprofen 2023-0 Yes [id number] 600mg Take 1 U nivers 600 mg 3-24 tablet by ity of tablet 00:00: mouth [place] 00 every 6 Medical (six) Branch hours as needed for Pain (scale 4-6). ibuprofen 2023-0 Yes [id number] 600mg Take 1 U nivers 600 mg 3-24 tablet by ity of tablet 00:00: mouth [place] 00 every 6 Medical (six) Branch hours as needed for Pain (scale 4-6). ibuprofen 2023-0 Yes [id number] 600mg Take 1 U nivers 600 mg 3-24 tablet by ity of tablet 00:00: mouth [place] 00 every 6 Medical (six) Branch hours as needed for Pain (scale 4-6). ibuprofen 2023-0 Yes [id number] 600mg Take 1 U nivers 600 mg 3-24 tablet by ity of tablet 00:00: mouth [place] 00 every 6 Medical (six) Branch hours as needed for Pain (scale 4-6). ibuprofen 2023-0 Yes [id number] 600mg Take 1 U nivers 600 mg 3-24 tablet by ity of tablet 00:00: mouth [place] 00 every 6 Medical (six) Branch hours as needed for Pain (scale 4-6). ibuprofen 2023-0 Yes [id number] 600mg Take 1 U nivers 600 mg 3-24 tablet by ity of tablet 00:00: mouth [place] 00 every 6 Medical (six) Branch hours as needed for Pain (scale 4-6). ibuprofen 2023-0 Yes [id number] 600mg Take 1 [facility] 600 mg 3-24 tablet by it[facility] of tablet 00:00: mouth [place] 00 every 6 Medical (six) Branch hours as needed for Pain (scale 4-6). ibuprofen 2023-0 Yes [id number] 600mg Take 1 [facility] 600 mg 3-24 tablet by ity of tablet 00:00: mouth [place] 00 every 6 Medical (six) Branch hours as needed for Pain (scale 4-6). ibuprofen 2023-0 Yes [id number] 600mg Take 1 [facility] 600 mg 3-24 tablet by ity of tablet 00:00: mouth [place] 00 every 6 Medical (six) Branch hours as needed for Pain (scale 4-6). ibuprofen 2023-0 Yes [id number] 600mg Take 1 [facility] 600 mg 3-24 tablet by ity of tablet 00:00: mouth [place] 00 every 6 Medical (six) Branch hours as needed for Pain (scale 4-6). ibuprofen 2023-0 Yes [id number] 600mg Take 1 [facility] 600 mg 3-24 tablet by ity of tablet 00:00: mouth [place] 00 every 6 Medical (six) Branch hours as needed for Pain (scale 4-6). ibuprofen 2023-0 Yes [id number] 600mg Take 1 [facility] 600 mg 3-24 tablet by ity of tablet 00:00: mouth [place] 00 every 6 Medical (six) Branch hours as needed for Pain (scale 4-6). ibuprofen 2023-0 Yes [id number] 600mg Take 1 [facility] 600 mg 3-24 tablet by ity of tablet 00:00: mouth [place] 00 every 6 Medical (six) Branch hours as needed for Pain (scale 4-6). ibuprofen 2023-0 Yes [id number] 600mg Take 1 [facility] 600 mg 3-24 tablet by ity of tablet 00:00: mouth [place] 00 every 6 Medical (six) Branch hours as needed for Pain (scale 4-6). ibuprofen 2023-0 Yes [id number] 600mg Take 1 [facility] 600 mg 3-24 tablet by ity of tablet 00:00: mouth [place] 00 every 6 Medical (six) Branch hours as needed for Pain (scale 4-6). ibuprofen 2023-0 Yes [id number] 600mg Take 1 [facility] 600 mg 3-24 tablet by ity of tablet 00:00: mouth [place] 00 every 6 Medical (six) Branch hours as needed for Pain (scale 4-6). ibuprofen 2023-0 Yes [id number] 600mg Take 1 [facility] 600 mg 3-24 tablet by ity of tablet 00:00: mouth [place] 00 every 6 Medical (six) Branch hours as needed for Pain (scale 4-6). ibuprofen 2023-0 Yes [id number] 600mg Take 1 [facility] 600 mg 3-24 tablet by ity of tablet 00:00: mouth [place] 00 every 6 Medical (six) Branch hours as needed for Pain (scale 4-6). ibuprofen 2022- No [id number] 600mg Take 1 [facility] 600 mg 3-24 05-01 tablet by ity of tablet 00:00: 00:00 mouth [place] 00 :00 every 6 Medical (six) Branch hours as needed for Pain (scale 4-6). ibuprofen 2022- No [id number] 600mg Take 1 [facility] 600 mg 3-24 05-01 tablet by ity of tablet 00:00: 00:00 mouth [place] 00 :00 every 6 Medical (six) Branch hours as needed for Pain (scale 4-6). dicyclomine 2022- No [id number] 20mg Take 1 [facility] 20 mg 3-24 04-01 tablet by ity of tablet 00:00: 04:59 mouth 4 [place] 00 :00 (four) Medical times Branch daily for 7 days. dicyclomine 2022- No [id number] 20mg Take 1 [facility] 20 mg 3-24 04-01 tablet by ity of tablet 00:00: 04:59 mouth 4 [place] 00 :00 (four) Medical times Branch daily for 7 days. dicyclomine No [id number] 20mg Take 1 [facility] 20 mg 3-24 04-01 tablet by ity of tablet 00:00: 04:59 mouth 4 [place] 00 :00 (four) Medical times Branch daily for 7 days. budesonide- 0 Yes [id number] 2{puff} Inhale 2 [facility] glycopyr-fo 3-20 Puffs in ity of rmoterol 00:00: the [place] ([facility] 00 morning Medical AEROSPHERE) and 2 Branch 160-9-4.8 Puffs in mcg/actuati the on HFAA evening. budesonide- 0 Yes [id number] 2{puff} Inhale 2 [facility] glycopyr-fo 3-20 Puffs in ity of rmoterol 00:00: the [place] ([facility] 00 morning Medical AEROSPHERE) and 2 Branch 160-9-4.8 Puffs in mcg/actuati the on HFAA evening. budesonide- 2022-0 Yes [id number] 2{puff} Inhale 2 [facility] glycopyr-fo 3-20 Puffs in ity of rmoterol 00:00: the [place] ([facility] 00 [facility]) and 2 Branch 160-9-4.8 Puffs in mcg/actuati the on HFAA evening. budesonide- 3-0 Yes [id number] 2{puff} Inhale 2 [facility] glycopyr-fo 3-20 Puffs in ity of rmoterol 00:00: the [place] ([facility] 00 [facility] AEROSPH[facility]) and 2 Branch 160-9-4.8 Puffs in mcg/actuati the on HFAA evening. budesonide- 3-0 Yes [id number] 2{puff} Inhale 2 [facility] glycopyr-fo 3-20 Puffs in ity of rmoterol 00:00: the [place] [facility] and 2 Branch 160-9-4.8 Puffs in mcg/actuati the on HFAA evening. budesonide- 3-0 Yes [id number] 2{puff} Inhale 2 [facility] glycopyr-fo 3-20 Puffs in ity of rmoterol 00:00: the [place] [facility]) and 2 Branch 160-9-4.8 Puffs in mcg/actuati the on HFAA evening. budesonide- 3-0 Yes [id number] 2{puff} Inhale 2 [facility] glycopyr-fo 3-20 Puffs in ity of rmoterol 00:00: the [place] [facility]) and 2 Branch 160-9-4.8 Puffs in mcg/actuati the on HFAA evening. budesonide- 2023-0 Yes [id number] 2{puff} Inhale 2 [facility] glycopyr-fo 3-20 Puffs in ity of rmoterol 00:00: the [place] [facility]) and 2 Branch 160-9-4.8 Puffs in mcg/actuati the on HFAA evening. budesonide- 3-0 Yes [id number] 2{puff} Inhale 2 [facility] glycopyr-fo 3-20 Puffs in ity of rmoterol 00:00: the [place] ([facility] 00 morning Medical AEROSPHERE) and 2 Branch 160-9-4.8 Puffs in mcg/actuati the on HFAA evening. budesonide- 3-0 Yes [id number] 2{puff} Inhale 2 [facility] glycopyr-fo 3-20 Puffs in ity of rmoterol 00:00: the [place] ([facility] 00 morning Medical AEROSPHERE) and 2 Branch 160-9-4.8 Puffs in mcg/actuati the on HFAA evening. budesonide- 3-0 Yes [id number] 2{puff} Inhale 2 [facility] glycopyr-fo 3-20 Puffs in ity of rmoterol 00:00: the [place] ([facility] 00 morning Medical AEROSPHERE) and 2 Branch 160-9-4.8 Puffs in mcg/actuati the on HFAA evening. budesonide- 3-0 Yes [id number] 2{puff} Inhale 2 [facility] glycopyr-fo 3-20 Puffs in ity of rmoterol 00:00: the [place] ([facility] 00 morning Medical AEROSPHERE) and 2 Branch 160-9-4.8 Puffs in mcg/actuati the on HFAA evening. budesonide- 3-0 Yes [id number] 2{puff} Inhale 2 [facility] glycopyr-fo 3-20 Puffs in ity of rmoterol 00:00: the [place] ([facility] 00 morning Medical AEROSPHERE) and 2 Branch 160-9-4.8 Puffs in mcg/actuati the on HFAA evening. budesonide- 3-0 Yes [id number] 2{puff} Inhale 2 [facility] glycopyr-fo 3-20 Puffs in ity of rmoterol 00:00: the [place] ([facility] 00 morning Medical AEROSPHERE) and 2 Branch 160-9-4.8 Puffs in mcg/actuati the on HFAA evening. budesonide- 3-0 Yes [id number] 2{puff} Inhale 2 [facility] glycopyr-fo 3-20 Puffs in ity of rmoterol 00:00: the [place] ([facility] 00 morning Medical AEROSPHERE) and 2 Branch 160-9-4.8 Puffs in mcg/actuati the on HFAA evening. budesonide- 2023-0 Yes [id number] 2{puff} Inhale 2 [facility] glycopyr-fo 3-20 Puffs in ity of rmoterol 00:00: the [place] ([facility] 00 [facility]) and 2 Branch 160-9-4.8 Puffs in mcg/actuati the on HFAA evening. budesonide- 3-0 Yes [id number] 2{puff} Inhale 2 [facility] glycopyr-fo 3-20 Puffs in ity of rmoterol 00:00: the [place] ([facility] 00 [facility] AEROS[facility]) and 2 Branch 160-9-4.8 Puffs in mcg/actuati the on HFAA evening. budesonide- 3-0 Yes [id number] 2{puff} Inhale 2 [facility] glycopyr-fo 3-20 Puffs in ity of rmoterol 00:00: the [place] [facility]) and 2 Branch 160-9-4.8 Puffs in mcg/actuati the on HFAA evening. budesonide- 3-0 Yes [id number] 2{puff} Inhale 2 [facility] glycopyr-fo 3-20 Puffs in ity of rmoterol 00:00: the [place] [facility]) and 2 Branch 160-9-4.8 Puffs in mcg/actuati the on HFAA evening. budesonide- 3-0 Yes [id number] 2{puff} Inhale 2 [facility] glycopyr-fo 3-20 Puffs in ity of rmoterol 00:00: the [place] ([facility]) and 2 Branch 160-9-4.8 Puffs in mcg/actuati the on HFAA evening. budesonide- 2023-0 Yes [id number] 2{puff} Inhale 2 [facility] glycopyr-fo 3-20 Puffs in ity of rmoterol 00:00: the [place] ([facility]) and 2 Branch 160-9-4.8 Puffs in mcg/actuati the on HFAA evening. budesonide- 2023-0 Yes [id number] 2{puff} Inhale 2 [facility] glycopyr-fo 3-20 Puffs in ity of rmoterol 00:00: the [place] ([facility] 00 morning Medical AEROSPHERE) and 2 Branch 160-9-4.8 Puffs in mcg/actuati the on HFAA evening. budesonide- 2023-0 Yes [id number] 2{puff} Inhale 2 [facility] glycopyr-fo 3-20 Puffs in ity of rmoterol 00:00: the [place] ([facility] 00 morning Medical AEROSPHERE) and 2 Branch 160-9-4.8 Puffs in mcg/actuati the on HFAA evening. budesonide- 2023-0 Yes [id number] 2{puff} Inhale 2 [facility] glycopyr-fo 3-20 Puffs in ity of rmoterol 00:00: the [place] ([facility] morning Medical AEROSPHERE) and 2 Branch 160-9-4.8 Puffs in mcg/actuati the on HFAA evening. budesonide- 3-0 Yes [id number] 2{puff} Inhale 2 [facility] glycopyr-fo 3-20 Puffs in ity of rmoterol 00:00: the [place] ([facility] 00 morning Medical AEROSPHERE) and 2 Branch 160-9-4.8 Puffs in mcg/actuati the on HFAA evening. budesonide- 3-0 Yes [id number] 2{puff} Inhale 2 [facility] glycopyr-fo 3-20 Puffs in ity of rmoterol 00:00: the [place] ([facility]) and 2 Branch 160-9-4.8 Puffs in mcg/actuati the on HFAA evening. budesonide- 2023-0 Yes [id number] 2{puff} Inhale 2 [facility] glycopyr-fo 3-20 Puffs in ity of rmoterol 00:00: the [place] ([facility] morning Medical AEROSPHERE) and 2 Branch 160-9-4.8 Puffs in mcg/actuati the on HFAA evening. budesonide- 2023-0 Yes [id number] 2{puff} Inhale 2 [facility] glycopyr-fo 3-20 Puffs in ity of rmoterol 00:00: the [place] [facility] morning Medical [facility]) and 2 Branch 160-9-4.8 Puffs in mcg/actuati the on HFAA evening. budesonide- 2023-0 Yes [id number] 2{puff} Inhale 2 [facility] glycopyr-fo 3-20 Puffs in ity of rmoterol 00:00: the [place] ([facility] 00 morning Medical AEROSPHERE) and 2 Branch 160-9-4.8 Puffs in mcg/actuati the on HFAA evening. budesonide- 2023-0 Yes [id number] 2{puff} Inhale 2 [facility] glycopyr-fo 3-20 Puffs in ity of rmoterol 00:00: the [place] ([facility] 00 morning Medical AEROSPHERE) and 2 Branch 160-9-4.8 Puffs in mcg/actuati the on HFAA evening. budesonide- 2023-0 Yes [id number] 2{puff} Inhale 2 [facility] glycopyr-fo 3-20 Puffs in ity of rmoterol 00:00: the [place] [facility] A[facility]) and 2 Branch 160-9-4.8 Puffs in mcg/actuati the on HFAA evening. budesonide- 2023-0 Yes [id number] 2{puff} Inhale 2 [facility] glycopyr-fo 3-20 Puffs in ity of rmoterol 00:00: the [place] ([facility] 00 morning Medical AEROSPHERE) and 2 Branch 160-9-4.8 Puffs in mcg/actuati the on HFAA evening. budesonide- 3-0 Yes [id number] 2{puff} Inhale 2 [facility] glycopyr-fo 3-20 Puffs in ity of rmoterol 00:00: the [place] ([facility] 00 morning Medical AEROSPHERE) and 2 Branch 160-9-4.8 Puffs in mcg/actuati the on HFAA evening. budesonide- 2023-0 Yes [id number] 2{puff} Inhale 2 [facility] glycopyr-fo 3-20 Puffs in ity of rmoterol 00:00: the [place] ([facility] 00 [facility] AEROSPHERE) and 2 Branch 160-9-4.8 Puffs in mcg/actuati the on HFAA evening. budesonide- 2023-0 Yes [id number] 2{puff} Inhale 2 [facility] glycopyr-fo 3-20 Puffs in ity of rmoterol 00:00: the [place] ([facility] 00 [facility] AEROSPHERE) and 2 Branch 160-9-4.8 Puffs in mcg/actuati the on HFAA evening. budesonide- 3-0 Yes [id number] 2{puff} Inhale 2 [facility] glycopyr-fo 3-20 Puffs in ity of rmoterol 00:00: the [place] ([facility] 00 [facility] AEROSPHERE) and 2 Branch 160-9-4.8 Puffs in mcg/actuati the on HFAA evening. budesonide- 3-0 Yes [id number] 2{puff} Inhale 2 [facility] glycopyr-fo 3-20 Puffs in ity of rmoterol 00:00: the [place] ([facility]) and 2 Branch 160-9-4.8 Puffs in mcg/actuati the on HFAA evening. budesonide- 2022-0 Yes [id number] 2{puff} Inhale 2 [facility] glycopyr-fo 3-20 Puffs in ity of rmoterol 00:00: the [place] ([facility] A[facility]) and 2 Branch 160-9-4.8 Puffs in mcg/actuati the on HFAA evening. budesonide- 3-0 Yes [id number] 2{puff} Inhale 2 [facility] glycopyr-fo 3-20 Puffs in ity of rmoterol 00:00: the [place] ([facility]) and 2 Branch 160-9-4.8 Puffs in mcg/actuati the on HFAA evening. budesonide- 3-0 Yes [id number] 2{puff} Inhale 2 [facility] glycopyr-fo 3-20 Puffs in ity of rmoterol 00:00: the [place] [facility]) and 2 Branch 160-9-4.8 Puffs in mcg/actuati the on HFAA evening. budesonide- 3-0 Yes [id number] 2{puff} Inhale 2 [facility] glycopyr-fo 3-20 Puffs in ity of rmoterol 00:00: the [place] ([facility] 00 morning Medical AEROSPHERE) and 2 Branch 160-9-4.8 Puffs in mcg/actuati the on HFAA evening. budesonide- 3-0 Yes [id number] 2{puff} Inhale 2 [facility] glycopyr-fo 3-20 Puffs in ity of rmoterol 00:00: the [place] ([facility] 00 morning Medical AEROSPHERE) and 2 Branch 160-9-4.8 Puffs in mcg/actuati the on HFAA evening. budesonide- 3-0 Yes [id number] 2{puff} Inhale 2 [facility] glycopyr-fo 3-20 Puffs in ity of rmoterol 00:00: the [place] ([facility] 00 morning Medical AEROSPHERE) and 2 Branch 160-9-4.8 Puffs in mcg/actuati the on HFAA evening. budesonide- 3-0 Yes [id number] 2{puff} Inhale 2 [facility] glycopyr-fo 3-20 Puffs in ity of rmoterol 00:00: the [place] ([facility] 00 morning Medical AEROSPHERE) and 2 Branch 160-9-4.8 Puffs in mcg/actuati the on HFAA evening. budesonide- 3-0 Yes [id number] 2{puff} Inhale 2 [facility] glycopyr-fo 3-20 Puffs in ity of rmoterol 00:00: the [place] ([facility] 00 morning Medical AEROSPHERE) and 2 Branch 160-9-4.8 Puffs in mcg/actuati the on HFAA evening. budesonide- 3-0 Yes [id number] 2{puff} Inhale 2 [facility] glycopyr-fo 3-20 Puffs in ity of rmoterol 00:00: the [place] ([facility] 00 morning Medical AEROSPHERE) and 2 Branch 160-9-4.8 Puffs in mcg/actuati the on HFAA evening. budesonide- 3-0 Yes [id number] 2{puff} Inhale 2 [facility] glycopyr-fo 3-20 Puffs in ity of rmoterol 00:00: the [place] ([facility] 00 morning Medical AEROSPHERE) and 2 Branch 160-9-4.8 Puffs in mcg/actuati the on HFAA evening. budesonide- 3-0 Yes [id number] 2{puff} Inhale 2 [facility] glycopyr-fo 3-20 Puffs in ity of rmoterol 00:00: the [place] ([facility] 00 [facility]) and 2 Branch 160-9-4.8 Puffs in mcg/actuati the on HFAA evening. budesonide- 3-0 Yes [id number] 2{puff} Inhale 2 [facility] glycopyr-fo 3-20 Puffs in ity of rmoterol 00:00: the [place] [facility]) and 2 Branch 160-9-4.8 Puffs in mcg/actuati the on HFAA evening. budesonide- 3-0 Yes [id number] 2{puff} Inhale 2 [facility] glycopyr-fo 3-20 Puffs in ity of rmoterol 00:00: the [place] [facility]) and 2 Branch 160-9-4.8 Puffs in mcg/actuati the on HFAA evening. budesonide- 3-0 Yes [id number] 2{puff} Inhale 2 [facility] glycopyr-fo 3-20 Puffs in ity of rmoterol 00:00: the [place] [facility]) and 2 Branch 160-9-4.8 Puffs in mcg/actuati the on HFAA evening. budesonide- 3-0 Yes [id number] 2{puff} Inhale 2 [facility] glycopyr-fo 3-20 Puffs in ity of rmoterol 00:00: the [place] ([facility]) and 2 Branch 160-9-4.8 Puffs in mcg/actuati the on HFAA evening. budesonide- 3-0 Yes [id number] 2{puff} Inhale 2 [facility] glycopyr-fo 3-20 Puffs in ity of rmoterol 00:00: the [place] [facility]) and 2 Branch 160-9-4.8 Puffs in mcg/actuati the on HFAA evening. budesonide- 3-0 Yes [id number] 2{puff} Inhale 2 [facility] glycopyr-fo 3-20 Puffs in ity of rmoterol 00:00: the [place] ([facility] 00 morning Medical AEROSPHERE) and 2 Branch 160-9-4.8 Puffs in mcg/actuati the on HFAA evening. budesonide- 2023-0 Yes [id number] 2{puff} Inhale 2 [facility] glycopyr-fo 3-20 Puffs in ity of rmoterol 00:00: the [place] ([facility] 00 morning Medical AEROSPHERE) and 2 Branch 160-9-4.8 Puffs in mcg/actuati the on HFAA evening. budesonide- 3-0 Yes [id number] 2{puff} Inhale 2 [facility] glycopyr-fo 3-20 Puffs in ity of rmoterol 00:00: the [place] ([facility] 00 morning Medical AEROSPHERE) and 2 Branch 160-9-4.8 Puffs in mcg/actuati the on HFAA evening. budesonide- 3-0 Yes [id number] 2{puff} Inhale 2 [facility] glycopyr-fo 3-20 Puffs in ity of rmoterol 00:00: the [place] ([facility] 00 morning Medical AEROSPHERE) and 2 Branch 160-9-4.8 Puffs in mcg/actuati the on HFAA evening. budesonide- 3-0 Yes [id number] 2{puff} Inhale 2 [facility] glycopyr-fo 3-20 Puffs in ity of rmoterol 00:00: the [place] ([facility] 00 morning Medical AEROSPHERE) and 2 Branch 160-9-4.8 Puffs in mcg/actuati the on HFAA evening. budesonide- 3-0 Yes [id number] 2{puff} Inhale 2 [facility] glycopyr-fo 3-20 Puffs in ity of rmoterol 00:00: the [place] ([facility] 00 morning Medical AEROSPHERE) and 2 Branch 160-9-4.8 Puffs in mcg/actuati the on HFAA evening. budesonide- 3-0 Yes [id number] 2{puff} Inhale 2 [facility] glycopyr-fo 3-20 Puffs in ity of rmoterol 00:00: the [place] ([facility] 00 morning Medical AEROSPHERE) and 2 Branch 160-9-4.8 Puffs in mcg/actuati the on HFAA evening. budesonide- 2023-0 Yes [id number] 2{puff} Inhale 2 [facility] glycopyr-fo 3-20 Puffs in ity of rmoterol 00:00: the [place] ([facility] 00 morning Medical AEROSPHERE) and 2 Branch 160-9-4.8 Puffs in mcg/actuati the on HFAA evening. budesonide- 2023-0 Yes [id number] 2{puff} Inhale 2 [facility] glycopyr-fo 3-20 Puffs in ity of rmoterol 00:00: the [place] ([facility] 00 morning Medical AEROSPHERE) and 2 Branch 160-9-4.8 Puffs in mcg/actuati the on HFAA evening. budesonide- 3-0 Yes [id number] 2{puff} Inhale 2 [facility] glycopyr-fo 3-20 Puffs in ity of rmoterol 00:00: the [place] [facility]) and 2 Branch 160-9-4.8 Puffs in mcg/actuati the on HFAA evening. budesonide- 3-0 Yes [id number] 2{puff} Inhale 2 [facility] glycopyr-fo 3-20 Puffs in ity of rmoterol 00:00: the [place] ([facility] morning Medical AER[facility]PHERE) and 2 Branch 160-9-4.8 Puffs in mcg/actuati the on HFAA evening. budesonide- 3-0 Yes [id number] 2{puff} Inhale 2 [facility] glycopyr-fo 3-20 Puffs in ity of rmoterol 00:00: the [place] ([facility] 00 morning Medical AEROSPHERE) and 2 Branch 160-9-4.8 Puffs in mcg/actuati the on HFAA evening. budesonide- 2023-0 Yes [id number] 2{puff} Inhale 2 [facility] glycopyr-fo 3-20 Puffs in ity of rmoterol 00:00: the [place] ([facility]) and 2 Branch 160-9-4.8 Puffs in mcg/actuati the on HFAA evening. budesonide- 2023-0 Yes [id number] 2{puff} Inhale 2 [facility] glycopyr-fo 3-20 Puffs in ity of rmoterol 00:00: the [place] [facility]) and 2 Branch 160-9-4.8 Puffs in mcg/actuati the on HFAA evening. budesonide- 3-0 Yes [id number] 2{puff} Inhale 2 [facility] glycopyr-fo 3-20 Puffs in ity of rmoterol 00:00: the [place] [facility]) and 2 Branch 160-9-4.8 Puffs in mcg/actuati the on HFAA evening. budesonide- 3-0 Yes [id number] 2{puff} Inhale 2 [facility] glycopyr-fo 3-20 Puffs in ity of rmoterol 00:00: the [place] ([facility]) and 2 Branch 160-9-4.8 Puffs in mcg/actuati the on HFAA evening. budesonide- 3-0 Yes [id number] 2{puff} Inhale 2 [facility] glycopyr-fo 3-20 Puffs in ity of rmoterol 00:00: the [place] ([facility]) and 2 Branch 160-9-4.8 Puffs in mcg/actuati the on HFAA evening. budesonide- 3-0 Yes [id number] 2{puff} Inhale 2 [facility] glycopyr-fo 3-20 Puffs in ity of rmoterol 00:00: the [place] ([facility]) and 2 Branch 160-9-4.8 Puffs in mcg/actuati the on HFAA evening. budesonide- 3-0 Yes [id number] 2{puff} Inhale 2 [facility] glycopyr-fo 3-20 Puffs in ity of rmoterol 00:00: the [place] ([facility]) and 2 Branch 160-9-4.8 Puffs in mcg/actuati the on HFAA evening. budesonide- 3-0 Yes [id number] 2{puff} Inhale 2 [facility] glycopyr-fo 3-20 Puffs in ity of rmoterol 00:00: the [place] ([facility] 00 morning Medical AEROSPHERE) and 2 Branch 160-9-4.8 Puffs in mcg/actuati the on HFAA evening. budesonide- 2023-0 Yes [id number] 2{puff} Inhale 2 [facility] glycopyr-fo 3-20 Puffs in ity of rmoterol 00:00: the [place] ([facility] 00 morning Medical AEROSPHERE) and 2 Branch 160-9-4.8 Puffs in mcg/actuati the on HFAA evening. budesonide- 3-0 Yes [id number] 2{puff} Inhale 2 [facility] glycopyr-fo 3-20 Puffs in ity of rmoterol 00:00: the [place] ([facility] 00 morning Medical AEROSPHERE) and 2 Branch 160-9-4.8 Puffs in mcg/actuati the on HFAA evening. budesonide- 3-0 Yes [id number] 2{puff} Inhale 2 [facility] glycopyr-fo 3-20 Puffs in ity of rmoterol 00:00: the [place] ([facility] 00 morning Medical AEROSPHERE) and 2 Branch 160-9-4.8 Puffs in mcg/actuati the on HFAA evening. budesonide- 3-0 Yes [id number] 2{puff} Inhale 2 Univers glycopyr-fo 3-20 Puffs in ity of rmoterol 00:00: the [place] ([facility] 00 morning Medical AEROSPHERE) and 2 Branch 160-9-4.8 Puffs in mcg/actuati the on HFAA evening. budesonide- 3-0 Yes [id number] 2{puff} Inhale 2 [facility] glycopyr-fo 3-20 Puffs in ity of rmoterol 00:00: the [place] ([facility] 00 morning Medical AEROSPHERE) and 2 Branch 160-9-4.8 Puffs in mcg/actuati the on HFAA evening. budesonide- 2023-0 Yes [id number] 2{puff} Inhale 2 Univers glycopyr-fo 3-20 Puffs in ity of rmoterol 00:00: the [place] ([facility] 00 morning Medical AEROSPHERE) and 2 Branch 160-9-4.8 Puffs in mcg/actuati the on HFAA evening. budesonide- 2023-0 Yes [id number] 2{puff} Inhale 2 Univers glycopyr-fo 3-20 Puffs in ity of rmoterol 00:00: the [place] [facility]) and 2 Branch 160-9-4.8 Puffs in mcg/actuati the on HFAA evening. budesonide- 2023-0 Yes [id number] 2{puff} Inhale 2 Univers glycopyr-fo 3-20 Puffs in ity of rmoterol 00:00: the [place] [facility]) and 2 Branch 160-9-4.8 Puffs in mcg/actuati the on HFAA evening. budesonide- 2023-0 Yes [id number] 2{puff} Inhale 2 Univers glycopyr-fo 3-20 Puffs in ity of rmoterol 00:00: the [place] [facility] and 2 Branch 160-9-4.8 Puffs in mcg/actuati the on HFAA evening. budesonide- 2023-0 Yes [id number] 2{puff} Inhale 2 Univers glycopyr-fo 3-20 Puffs in ity of rmoterol 00:00: the [place] [facility] and 2 Branch 160-9-4.8 Puffs in mcg/actuati the on HFAA evening. budesonide- 2023-0 Yes [id number] 2{puff} Inhale 2 Univers glycopyr-fo 3-20 Puffs in ity of rmoterol 00:00: the [place] [facility] and 2 Branch 160-9-4.8 Puffs in mcg/actuati the on HFAA evening. budesonide- 2023-0 Yes [id number] 2{puff} Inhale 2 Univers glycopyr-fo 3-20 Puffs in ity of rmoterol 00:00: the [place] [facility]) and 2 Branch 160-9-4.8 Puffs in mcg/actuati the on HFAA evening. budesonide- 2023-0 Yes [id number] 2{puff} Inhale 2 Univers glycopyr-fo 3-20 Puffs in ity of rmoterol 00:00: the [place] (BREZTRI 00 morning Medical AEROSPHERE) and 2 Branch 160-9-4.8 Puffs in mcg/actuati the on HFAA evening. budesonide- 2023-0 Yes [id number] 2{puff} Inhale 2 [facility] glycopyr-fo 3-20 Puffs in ity of rmoterol 00:00: the [place] (BREZTRI 00 morning Medical AEROSPHERE) and 2 Branch 160-9-4.8 Puffs in mcg/actuati the on HFAA evening. budesonide- 2023-0 Yes [id number] 2{puff} Inhale 2 [facility] glycopyr-fo 3-20 Puffs in ity of rmoterol 00:00: the [place] (BREZTRI 00 morning Medical AEROSPHERE) and 2 Branch 160-9-4.8 Puffs in mcg/actuati the on HFAA evening. budesonide- 2023-0 Yes [id number] 2{puff} Inhale 2 [facility] glycopyr-fo 3-20 Puffs in ity of rmoterol 00:00: the [place] (BREZTRI 00 morning Medical AEROSPHERE) and 2 Branch 160-9-4.8 Puffs in mcg/actuati the on HFAA evening. budesonide- 2023-0 Yes [id number] 2{puff} Inhale 2 [facility] glycopyr-fo 3-20 Puffs in ity of rmoterol 00:00: the [place] (BREZTRI 00 morning Medical AEROSPHERE) and 2 Branch 160-9-4.8 Puffs in mcg/actuati the on HFAA evening. budesonide- 2023-0 Yes [id number] 2{puff} Inhale 2 [facility] glycopyr-fo 3-20 Puffs in ity of rmoterol 00:00: the [place] (BREZTRI 00 morning Medical AEROSPHERE) and 2 Branch 160-9-4.8 Puffs in mcg/actuati the on HFAA evening. budesonide- 2023-0 Yes [id number] 2{puff} Inhale 2 [facility] glycopyr-fo 3-20 Puffs in ity of rmoterol 00:00: the [place] (BREZTRI 00 morning Medical AEROSPHERE) and 2 Branch 160-9-4.8 Puffs in mcg/actuati the on HFAA evening. budesonide- 2023-0 Yes [id number] 2{puff} Inhale 2 [facility] glycopyr-fo 3-20 Puffs in ity of rmoterol 00:00: the [place] (BREZTRI 00 [facility]) and 2 Branch 160-9-4.8 Puffs in mcg/actuati the on HFAA evening. budesonide- 2023-0 Yes [id number] 2{puff} Inhale 2 [facility] glycopyr-fo 3-20 Puffs in ity of rmoterol 00:00: the [place] (BREZTRI 00 morning Medical AEROSPHERE) and 2 Branch 160-9-4.8 Puffs in mcg/actuati the on HFAA evening. budesonide- 2023-0 Yes [id number] 2{puff} Inhale 2 [facility] glycopyr-fo 3-20 Puffs in ity of rmoterol 00:00: the [place] [facility]) and 2 Branch 160-9-4.8 Puffs in mcg/actuati the on HFAA evening. budesonide- 3-0 Yes [id number] 2{puff} Inhale 2 [facility] glycopyr-fo 3-20 Puffs in ity of rmoterol 00:00: the [place] [facility] A[facility]) and 2 Branch 160-9-4.8 Puffs in mcg/actuati the on HFAA evening. budesonide- 3-0 Yes [id number] 2{puff} Inhale 2 [facility] glycopyr-fo 3-20 Puffs in ity of rmoterol 00:00: the [place] (BREZTRI 00 [facility]) and 2 Branch 160-9-4.8 Puffs in mcg/actuati the on HFAA evening. budesonide- 2023-0 Yes [id number] 2{puff} Inhale 2 [facility] glycopyr-fo 3-20 Puffs in ity of rmoterol 00:00: the [place] [facility]) and 2 Branch 160-9-4.8 Puffs in mcg/actuati the on HFAA evening. budesonide- 2023-0 Yes [id number] 2{puff} Inhale 2 [facility] glycopyr-fo 3-20 Puffs in ity of rmoterol 00:00: the [place] (BREZTRI 00 morning Medical AEROSPHERE) and 2 Branch 160-9-4.8 Puffs in mcg/actuati the on HFAA evening. budesonide- 2023-0 Yes [id number] 2{puff} Inhale 2 [facility] glycopyr-fo 3-20 Puffs in ity of rmoterol 00:00: the [place] (BREZTRI 00 morning Medical AEROSPHERE) and 2 Branch 160-9-4.8 Puffs in mcg/actuati the on HFAA evening. budesonide- 2023-0 Yes [id number] 2{puff} Inhale 2 [facility] glycopyr-fo 3-20 Puffs in ity of rmoterol 00:00: the [place] [facility] morning Medical AER[facility]PHERE) and 2 Branch 160-9-4.8 Puffs in mcg/actuati the on HFAA evening. budesonide- 3-0 Yes [id number] 2{puff} Inhale 2 [facility] glycopyr-fo 3-20 Puffs in ity of rmoterol 00:00: the [place] [facility] morning Medical AEROSPHERE) and 2 Branch 160-9-4.8 Puffs in mcg/actuati the on HFAA evening. ESOMEPRAZOL 2022-0 2022- No 20mg Take 20 mg Univers E MAG 209-15 by mouth ity of TRIHYDRATE 07:53: 00:00 once now. [place] (NEXIUM 38 :00 Medical ORAL) Branch ESOMEPRAZOL 2022-0 2022- No 20mg Take 20 mg Univers E MAG 209-15 by mouth ity of TRIHYDRATE 07:53: 00:00 once now. [place] (NEXIUM 38 :00 Medical ORAL) Branch ESOMEPRAZOL 2022-0 2022- No 20mg Take 20 mg Univers E MAG 09-15 by mouth ity of TRIHYDRATE 07:53: 00:00 once now. [place] (NEXIUM 38 :00 Medical ORAL) Branch ESOMEPRAZOL 2022-0 2022- No 20mg Take 20 mg Univers E MAG 09-15 by mouth ity of TRIHYDRATE 07:53: 00:00 once now. [place] (NEXIUM 38 :00 Medical ORAL) Branch esomeprazol 2022-0 Yes [id number] 20mg Take 20 mg Univers e 20 mg 2-28 by mouth ity of capsule 00:00: daily [place] 00 before a Medical meal. Branch esomeprazol 2022-0 Yes [id number] 20mg Take 20 mg Univers e 20 mg 2-28 by mouth ity of capsule 00:00: daily [place] 00 before a Medical meal. Branch esomeprazol 2022-0 Yes [id number] 20mg Take 20 mg Univers e 20 mg 2-28 by mouth ity of capsule 00:00: daily [place] 00 before a Medical meal. Branch esomeprazol 2022-0 Yes [id number] 20mg Take 20 mg Univers e 20 mg 2-28 by mouth ity of capsule 00:00: daily [place] 00 before a Medical meal. Branch esomeprazol 2022-0 Yes [id number] 20mg Take 20 mg Univers e 20 mg 2-28 by mouth ity of capsule 00:00: daily [place] 00 before a Medical meal. Branch esomeprazol 2022-0 Yes [id number] 20mg Take 20 mg Univers e 20 mg 2-28 by mouth ity of capsule 00:00: daily [place] 00 before a Medical meal. Branch esomeprazol 2022-0 Yes [id number] 20mg Take 20 mg Univers e 20 mg 2-28 by mouth ity of capsule 00:00: daily [place] 00 before a Medical meal. Branch esomeprazol 2022-0 Yes [id number] 20mg Take 20 mg Univers e 20 mg 2-28 by mouth ity of capsule 00:00: daily [place] 00 before a Medical meal. Branch esomeprazol 2022-0 Yes [id number] 20mg Take 20 mg Univers e 20 mg 2-28 by mouth ity of capsule 00:00: daily [place] 00 before a Medical meal. Branch esomeprazol 2022-0 Yes [id number] 20mg Take 20 mg Univers e 20 mg 2-28 by mouth ity of capsule 00:00: daily [place] 00 before a Medical meal. Branch esomeprazol 2022-0 Yes [id number] 20mg Take 20 mg Univers e 20 mg 2-28 by mouth ity of capsule 00:00: daily [place] 00 before a Medical meal. [place] esomeprazol Yes [id number] 20mg Take 20 mg Univers e 20 mg 2-28 by mouth ity of capsule 00:00: daily [place] 00 before a Medical meal. [place] esomeprazol 2022- No [id number] 20mg Take 20 mg Univers e 20 mg 2-28 -24 by mouth ity of capsule 00:00: 00:00 daily [place] 00 :00 before a Medical meal. [place] KEPPRA 100 2022- No 12 ml BID U nivers MG/ML ORAL 08-19 , per mom ity of SOLN 09:36: 00:00 [place] 06 :00 [facility] 100 2022- No 12 ml BID U nivers MG/ML ORAL 08-19 , per mom ity of SOLN 09:36: 00:00 [place] 06 :00 [facility] 100 0 2022- No 12 ml BID U nivers MG/ML ORAL 08-19 , per mom ity of SOLN 09:36: 00:00 [place] 06 :00 [facility] 100 0 2022- No 12 ml BID U nivers MG/ML ORAL 08-19 , per mom ity of SOLN 09:36: 00:00 [place] 06 :00 [facility] KERA 100 0 2022- No 12 ml BID U nivers MG/ML ORAL 08-19 , per mom ity of SOLN 09:36: 00:00 [place] 06 :00 [facility] KEPPRA 100 0 2022- No 12 ml BID U nivers MG/ML ORAL 08-19 , per mom ity of SOLN 09:36: 00:00 [place] 06 :00 [facility] DIASTAT 2022- No 10mg as Univer s [...] 5 min DIASTAT 2022- No 10mg as [facility] ACUDIAL 08-19 needed for ity o f 5-7.5-10 MG 09:35: 00:00 seizure [place] RECTAL KIT 50 :00 lasting Medica l greater Branch than 5 min DIASTAT 2022- No 10mg as [facility] ACUDIAL 08-19 needed for ity o f 5-7.5-10 MG 09:35: 00:00 seizure [place] RECTAL KIT 50 :00 lasting Medica l greater Branch than 5 min DIASTAT 2022- No 10mg as [facility] ACUDIAL 08-19 needed for ity o f 5-7.5-10 MG 09:35: 00:00 seizure [place] RECTAL KIT 50 :00 lasting Medica l greater Branch than 5 min DIASTAT 2022- No 10mg as [facility] ACUDIAL 08-19 needed for ity o f [...] affected ity o f aquaphor 08:59: area(s). [place] (COMPOUNDED 36 Medical ) ointment Branch ARIPiprazol Yes by [facility] s e (ABILIFY 2- Intramuscu ity of [...] ARIPiprazol Yes by Univer s e (ABILIFY 2- [...] ARIPiprazol Yes by Univer s e (ABILIFY 2-01 [...] ARIPiprazol Yes by Univer s e (ABILIFY 2-01 [...] 2022- Yes by Univer s e (ABILIFY 2-01 [...] once every Me dical month. Branch triamcinolo Yes Apply to Un [place] [...] once every Me dical month. Branch ARIPiprazol 2023-0 Yes by Univer s e (ABILIFY 2-01 Intramuscu ity of MAINTENA) 08:59: lar route [place] as 300 mg sers 36 once every Me dical month. Branch ARIPiprazol 3-0 Yes by Univer s e (ABILIFY 2-01 Intramuscu ity of MAINTENA) 08:59: lar route [place] 300 mg sers 36 once every Me dical month. Branch ARIPiprazol 3-0 Yes by Univer s e (ABILIFY 2-01 Intramuscu ity of MAINTENA) 08:59: lar route [place] 300 mg sers 36 once every Me dical month. Branch ARIPiprazol 3-0 Yes by Univer s e (ABILIFY 2-01 Intramuscu ity of MAINTENA) 08:59: lar route [place] 300 mg sers 36 once every Me dical month. Branch ARIPiprazol 3-0 Yes by Univer s e (ABILIFY 2-01 Intramuscu ity of MAINTENA) 08:59: lar route [place] 300 mg sers 36 once every Me dical month. Branch ARIPiprazol 3-0 Yes by Univer s e (ABILIFY 2-01 Intramuscu ity of MAINTENA) 08:59: lar route [place] 300 mg sers 36 once every Me dical month. Branch ARIPiprazol 3-0 Yes by Univer s e (ABILIFY 2-01 Intramuscu ity of MAINTENA) 08:59: lar route [place] 300 mg sers 36 once every Me dical month. Branch ARIPiprazol 3-0 Yes by Univer s e (ABILIFY 2-01 Intramuscu ity of MAINTENA) 08:59: lar route [place] 300 mg sers 36 once every Me dical month. Branch ARIPiprazol 3-0 Yes by Univer s e (ABILIFY 2-01 Intramuscu ity of MAINTENA) 08:59: lar route [place] 300 mg sers 36 once every Me dical month. Branch ARIPiprazol 2023-0 Yes by Univer s e (ABILIFY 2-01 Intramuscu ity of MAINTENA) 08:59: lar route [place] 300 mg sers 36 once every Me dical month. Branch ARIPiprazol 3-0 Yes by Univer s e (ABILIFY 2-01 Intramuscu ity of MAINTENA) 08:59: lar route [place] 300 mg sers 36 once every Me dical month. Branch ARIPiprazol 3-0 Yes by Univer s e (ABILIFY 2-01 Intramuscu ity of MAINTENA) 08:59: lar route [place] 300 mg sers 36 once every Me dical month. Branch ARIPiprazol 3-0 Yes by Univer s e (ABILIFY 2-01 Intramuscu ity of MAINTENA) 08:59: lar route [place] 300 mg sers 36 once every Me dical month. Branch ARIPiprazol 3-0 Yes by Univer s e (ABILIFY 2-01 Intramuscu ity of MAINTENA) 08:59: lar route [place] 300 mg sers 36 once every Me dical month. Branch ARIPiprazol 3-0 Yes by Univer s e (ABILIFY 2-01 Intramuscu ity of MAINTENA) 08:59: lar route [place] 300 mg sers 36 once every Me dical month. Branch ARIPiprazol 3-0 Yes by Univer s e (ABILIFY 2-01 Intramuscu ity of MAINTENA) 08:59: lar route [place] 300 mg sers 36 once every Me dical month. Branch ARIPiprazol 3-0 Yes by Univer s e (ABILIFY 2-01 Intramuscu ity of MAINTENA) 08:59: lar route [place] 300 mg sers 36 once every Me dical month. Branch ARIPiprazol 3-0 Yes by Univer s e (ABILIFY 2-01 Intramuscu ity of MAINTENA) 08:59: lar route [place] 300 mg sers 36 once every Me dical month. Branch ARIPiprazol 2023-0 Yes by Univer s e (ABILIFY 2-01 Intramuscu ity of MAINTENA) 08:59: lar route [place] 300 mg sers 36 once every Me dical month. Branch ARIPiprazol 3-0 Yes by Univer s [...] once every Me dical month. Branch ARIPiprazol 3-0 Yes by Univer s e (ABILIFY 2-01 Intramuscu ity of MAINTENA) 08:59: lar route [place] 300 mg sers 36 once every Me dical month. Branch ARIPiprazol 3-0 Yes by Univer s e (ABILIFY 2-01 Intramuscu ity of MAINTENA) 08:59: lar route [place] 300 mg sers 36 once every Me dical month. Branch ARIPiprazol 3-0 Yes by Univer s e (ABILIFY 2-01 Intramuscu ity of MAINTENA) 08:59: lar route [place] 300 mg sers 36 once every Me dical month. Branch ARIPiprazol 3-0 Yes by Univer s e (ABILIFY 2-01 Intramuscu ity of MAINTENA) 08:59: lar route [place] 300 mg sers 36 once every Me dical month. Branch ARIPiprazol 3-0 Yes by Univer s e (ABILIFY 2-01 Intramuscu ity of MAINTENA) 08:59: lar route [place] 300 mg sers 36 once every Me dical month. Branch ARIPiprazol 2022-0 Yes by Univer s e (ABILIFY 2-01 Intramuscu ity of MAINTENA) 08:59: lar route [place] 300 mg sers 36 once every Me dical month. Branch ARIPiprazol 3-0 Yes by Univer s e (ABILIFY 2-01 Intramuscu ity of MAINTENA) 08:59: lar route [place] 300 mg sers 36 once every Me dical month. Branch ARIPiprazol 3-0 Yes by Univer s e (ABILIFY 2-01 Intramuscu ity of MAINTENA) 08:59: lar route [place] 300 mg sers 36 once every Me dical month. Branch ARIPiprazol 3-0 Yes by Univer s e (ABILIFY 2-01 Intramuscu ity of MAINTENA) 08:59: lar route [place] 300 mg sers 36 once every Me dical month. Branch ARIPiprazol 3-0 Yes by Univer s e (ABILIFY 2-01 Intramuscu ity of MAINTENA) 08:59: lar route [place] 300 mg sers 36 once every Me dical month. Branch ARIPiprazol 3-0 Yes by Univer s e (ABILIFY 2-01 Intramuscu ity of MAINTENA) 08:59: lar route [place] 300 mg sers 36 once every Me dical month. Branch ARIPiprazol 3-0 Yes by Univer s e (ABILIFY 2-01 Intramuscu ity of MAINTENA) 08:59: lar route [place] 300 mg sers 36 once every Me dical month. Branch ARIPiprazol 3-0 Yes by Univer s e (ABILIFY 2-01 Intramuscu ity of MAINTENA) 08:59: lar route [place] as 300 mg sers 36 once every Me dical month. Branch ARIPiprazol 2023-0 Yes by Univer s e (ABILIFY 2-01 Intramuscu ity of MAINTENA) 08:59: lar route [place] 300 mg sers 36 once every Me dical month. Branch ARIPiprazol 3-0 Yes by Univer s e (ABILIFY 2-01 Intramuscu ity of MAINTENA) 08:59: lar route [place] 300 mg sers 36 once every Me dical month. Branch ARIPiprazol 3-0 Yes by Univer s e (ABILIFY 2-01 Intramuscu ity of MAINTENA) 08:59: lar route [place] 300 mg sers 36 once every Me dical month. Branch ARIPiprazol 3-0 Yes by Univer s e (ABILIFY 2-01 Intramuscu ity of MAINTENA) 08:59: lar route [place] 300 mg sers 36 once every Me dical month. Branch ARIPiprazol 3-0 Yes by Univer s e (ABILIFY 2-01 Intramuscu ity of MAINTENA) 08:59: lar route [place] 300 mg sers 36 once every Me dical month. Branch ARIPiprazol 3-0 Yes by Univer s e (ABILIFY 2-01 Intramuscu ity of MAINTENA) 08:59: lar route [place] 300 mg sers 36 once every Me dical month. Branch ARIPiprazol 3-0 Yes by Univer s e (ABILIFY 2-01 Intramuscu ity of MAINTENA) 08:59: lar route [place] 300 mg sers 36 once every Me dical month. Branch ARIPiprazol 3-0 Yes by Univer s e (ABILIFY 2-01 Intramuscu ity of MAINTENA) 08:59: lar route [place] 300 mg sers 36 once every Me dical month. Branch ARIPiprazol 2023-0 Yes by Univer s e (ABILIFY 2-01 Intramuscu ity of MAINTENA) 08:59: lar route [place] 300 mg sers 36 once every Me dical month. Branch ARIPiprazol 2023-0 Yes by Univer s e (ABILIFY 2-01 Intramuscu ity of MAINTENA) 08:59: lar route [place] 300 mg sers 36 once every Me dical month. Branch SUMAtriptan Yes [id number] 20mg Use 1 Univers 20 2-01 [place] in 1 ity of mg/actuatio 00:00: nostril as [place] n nasal 00 needed Medical spray (migraine) Branch . midazolam 0 Yes [id number] 5mg Use 5 mg Univers (NAYZILAM) 2-01 in each ity of 5 mg/spray 00:00: nostril as [place] (0.1 mL) 00 needed Medical [place] (seizure). Branch levETIRAcet 0 Yes [id number] 1000mg Take 10 mL Univers am (KEPPRA) 2-01 by mouth ity of 100 mg/mL 00:00: in the [place] oral 00 morning Medical solution and 10 mL Branch in the evening. SUMAtriptan 2022-0 Yes [id number] 20mg Use 1 Univers 20 2-01 [place] in 1 ity of mg/actuatio 00:00: nostril as [place] n nasal 00 needed Medical spray (migraine) Branch . midazolam 2022-0 Yes [id number] 5mg Use 5 mg Univers (NAYZILAM) 2-01 in each ity of 5 mg/spray 00:00: nostril as [place] (0.1 mL) 00 needed Medical [place] (seizure). Branch levETIRAcet Yes [id number] 1000mg Take 10 mL Univers am (KEPPRA) 2-01 by mouth ity of 100 mg/mL 00:00: in the [place] oral 00 morning Medical solution and 10 mL Branch in the evening. SUMAtriptan 2022-0 Yes [id number] 20mg Use 1 Univers 20 2-01 [place] in 1 ity of mg/actuatio 00:00: nostril as [place] n nasal 00 needed Medical spray (migraine) Branch . midazolam 2022-0 Yes [id number] 5mg Use 5 mg Univers (NAYZILAM) 2-01 in each ity of 5 mg/spray 00:00: nostril as [place] (0.1 mL) 00 needed Medical [place] (seizure). Branch levETIRAcet 2023-0 Yes [id number] 1000mg Take 10 mL Univers am (KEPPRA) 2-01 by mouth ity of 100 mg/mL 00:00: in the [place] oral 00 morning Medical solution and 10 mL Branch in the evening. SUMAtriptan 2022-0 Yes [id number] 20mg Use 1 Univers 20 2-01 [place] in 1 ity of mg/actuatio 00:00: nostril as [place] n nasal 00 needed Medical spray (migraine) Branch . midazolam 2022-0 Yes [id number] 5mg Use 5 mg Univers (NAYZILAM) 2-01 in each ity of 5 mg/spray 00:00: nostril as [place] (0.1 mL) 00 needed Medical [place] (seizure). Branch levETIRAcet 0 Yes [id number] 1000mg Take 10 mL Univers am (KEPPRA) 2-01 by mouth ity of 100 mg/mL 00:00: in the [place] oral 00 morning Medical solution and 10 mL Branch in the evening. SUMAtriptan 2022-0 Yes [id number] 20mg Use 1 Univers 20 2-01 [place] in 1 ity of mg/actuatio 00:00: nostril as [place] n nasal 00 needed Medical spray (migraine) Branch . midazolam 2022-0 Yes [id number] 5mg Use 5 mg Univers (NAYZILAM) 2-01 in each ity of 5 mg/spray 00:00: nostril as [place] (0.1 mL) 00 needed Medical [place] (seizure). Branch levETIRAcet 0 Yes [id number] 1000mg Take 10 mL Univers am (KEPPRA) 2-01 by mouth ity of 100 mg/mL 00:00: in the [place] oral 00 morning Medical solution and 10 mL Branch in the evening. SUMAtriptan 2022-0 Yes [id number] 20mg Use 1 Univers 20 2-01 [place] in 1 ity of mg/actuatio 00:00: nostril as [place] n nasal 00 needed Medical spray (migraine) Branch . midazolam 2022-0 Yes [id number] 5mg Use 5 mg Univers (NAYZILAM) 2-01 in each ity of 5 mg/spray 00:00: nostril as [place] (0.1 mL) 00 needed Medical [place] (seizure). Branch levETIRAcet 2022-0 Yes [id number] 1000mg Take 10 mL Univers am (KEPPRA) 2-01 by mouth ity of 100 mg/mL 00:00: in the [place] oral 00 morning Medical solution and 10 mL Branch in the evening. SUMAtriptan 2022-0 Yes [id number] 20mg Use 1 Univers 20 2-01 [place] in 1 ity of mg/actuatio 00:00: nostril as [place] n nasal 00 needed Medical spray (migraine) Branch . midazolam 2022-0 Yes [id number] 5mg Use 5 mg Univers (NAYZILAM) 2-01 in each ity of 5 mg/spray 00:00: nostril as [place] (0.1 mL) 00 needed Medical [place] (seizure). Branch levETIRAcet 2022-0 Yes [id number] 1000mg Take 10 mL Univers am (KEPPRA) 2-01 by mouth ity of 100 mg/mL 00:00: in the [place] oral 00 morning Medical solution and 10 mL Branch in the evening. SUMAtriptan 2022-0 Yes [id number] 20mg Use 1 Univers 20 2-01 [place] in 1 ity of mg/actuatio 00:00: nostril as [place] n nasal 00 needed Medical spray (migraine) Branch . midazolam 2022-0 Yes [id number] 5mg Use 5 mg Univers (NAYZILAM) 2-01 in each ity of 5 mg/spray 00:00: nostril as [place] (0.1 mL) 00 needed Medical [place] (seizure). Branch levETIRAcet 2022-0 Yes [id number] 1000mg Take 10 mL Univers am (KEPPRA) 2-01 by mouth ity of 100 mg/mL 00:00: in the [place] oral 00 morning Medical solution and 10 mL Branch in the evening. SUMAtriptan 2022-0 Yes [id number] 20mg Use 1 Univers 20 2-01 [place] in 1 ity of mg/actuatio 00:00: nostril as [place] n nasal 00 needed Medical spray (migraine) Branch . midazolam 2022-0 Yes [id number] 5mg Use 5 mg Univers (NAYZILAM) 2-01 in each ity of 5 mg/spray 00:00: nostril as [place] (0.1 mL) 00 needed Medical [place] (seizure). Branch levETIRAcet 2022-0 Yes [id number] 1000mg Take 10 mL Univers am (KEPPRA) 2-01 by mouth ity of 100 mg/mL 00:00: in the [place] oral 00 morning Medical solution and 10 mL Branch in the evening. SUMAtriptan 2022-0 Yes [id number] 20mg Use 1 Univers 20 2-01 [place] in 1 ity of mg/actuatio 00:00: nostril as [place] n nasal 00 needed Medical spray (migraine) Branch . midazolam 2022-0 Yes [id number] 5mg Use 5 mg Univers (NAYZILAM) 2-01 in each ity of 5 mg/spray 00:00: nostril as [place] (0.1 mL) 00 needed Medical [place] (seizure). Branch levETIRAcet 2022-0 Yes [id number] 1000mg Take 10 mL Univers am (KEPPRA) 2-01 by mouth ity of 100 mg/mL 00:00: in the [place] oral 00 morning Medical solution and 10 mL Branch in the evening. SUMAtriptan 2022-0 Yes [id number] 20mg Use 1 Univers 20 2-01 [place] in 1 ity of mg/actuatio 00:00: nostril as [place] n nasal 00 needed Medical spray (migraine) Branch . midazolam 2022-0 Yes [id number] 5mg Use 5 mg Univers (NAYZILAM) 2-01 in each ity of 5 mg/spray 00:00: nostril as [place] (0.1 mL) 00 needed Medical [place] (seizure). Branch levETIRAcet 2022-0 Yes [id number] 1000mg Take 10 mL Univers am (KEPPRA) 2-01 by mouth ity of 100 mg/mL 00:00: in the [place] oral 00 morning Medical solution and 10 mL Branch in the evening. SUMAtriptan 2022-0 Yes [id number] 20mg Use 1 Univers 20 2-01 [place] in 1 ity of mg/actuatio 00:00: nostril as [place] n nasal 00 needed Medical spray (migraine) Branch . midazolam 2022-0 Yes [id number] 5mg Use 5 mg Univers (NAYZILAM) 2-01 in each ity of 5 mg/spray 00:00: nostril as [place] (0.1 mL) 00 needed Medical [place] (seizure). Branch levETIRAcet 2022-0 Yes [id number] 1000mg Take 10 mL Univers am (KEPPRA) 2-01 by mouth ity of 100 mg/mL 00:00: in the [place] oral 00 morning Medical solution and 10 mL Branch in the evening. SUMAtriptan 2022-0 Yes [id number] 20mg Use 1 Univers 20 2-01 [place] in 1 ity of mg/actuatio 00:00: nostril as [place] n nasal 00 needed Medical spray (migraine) Branch . midazolam 2022-0 Yes [id number] 5mg Use 5 mg Univers (NAYZILAM) 2-01 in each ity of 5 mg/spray 00:00: nostril as [place] (0.1 mL) 00 needed Medical [place] (seizure). Branch levETIRAcet 2022-0 Yes [id number] 1000mg Take 10 mL Univers am (KEPPRA) 2-01 by mouth ity of 100 mg/mL 00:00: in the [place] oral 00 morning Medical solution and 10 mL Branch in the evening. SUMAtriptan 2022-0 Yes [id number] 20mg Use 1 [facility] 20 2-01 [place] in 1 ity of mg/actuatio 00:00: nostril as [place] n nasal 00 needed Medical spray (migraine) Branch . midazolam 2022-0 Yes [id number] 5mg Use 5 mg Univers (NAYZILAM) 2-01 in each ity of 5 mg/spray 00:00: nostril as [place] (0.1 mL) 00 needed Medical [place] (seizure). Branch levETIRAcet 2022-0 Yes [id number] 1000mg Take 10 mL Univers am (KEPPRA) 2-01 by mouth ity of 100 mg/mL 00:00: in the [place] oral 00 morning Medical solution and 10 mL Branch in the evening. SUMAtriptan 2022-0 Yes [id number] 20mg Use 1 [facility] 20 2-01 [place] in 1 ity of mg/actuatio 00:00: nostril as [place] n nasal 00 needed Medical spray (migraine) Branch . midazolam 2022-0 Yes [id number] 5mg Use 5 mg Univers (NAYZILAM) 2-01 in each ity of 5 mg/spray 00:00: nostril as [place] (0.1 mL) 00 needed Medical [place] (seizure). Branch levETIRAcet 2022-0 Yes [id number] 1000mg Take 10 mL Univers am (KEPPRA) 2-01 by mouth ity of 100 mg/mL 00:00: in the [place] oral 00 morning Medical solution and 10 mL Branch in the evening. SUMAtriptan 2022-0 Yes [id number] 20mg Use 1 [facility] 20 2-01 [place] in 1 ity of mg/actuatio 00:00: nostril as [place] n nasal 00 needed Medical spray (migraine) Branch . midazolam 2022-0 Yes [id number] 5mg Use 5 mg [facility] (NAYZILAM) 2-01 in each ity of 5 mg/spray 00:00: nostril as [place] (0.1 mL) 00 needed Medical [place] (seizure). Branch levETIRAcet 2022-0 Yes [id number] 1000mg Take 10 mL [facility] am (KEPPRA) 2-01 by mouth ity of 100 mg/mL 00:00: in the [place] oral 00 morning Medical solution and 10 mL Branch in the evening. SUMAtriptan 2022-0 Yes [id number] 20mg Use 1 [facility] 20 2-01 [place] in 1 ity of mg/actuatio 00:00: nostril as [place] n nasal 00 needed Medical spray (migraine) Branch . midazolam 2022-0 Yes [id number] 5mg Use 5 mg [facility] (NAYZILAM) 2-01 in each ity of 5 mg/spray 00:00: nostril as [place] (0.1 mL) 00 needed Medical [place] (seizure). Branch levETIRAcet 2022-0 Yes [id number] 1000mg Take 10 mL [facility] ([facility]) 2-01 by mouth ity of 100 mg/mL 00:00: in the [place] oral 00 morning Medical solution and 10 mL Branch in the evening. SUMAtriptan 2022-0 Yes [id number] 20mg Use 1 [facility] 20 2-01 [place] in 1 ity of mg/actuatio 00:00: nostril as [place] n nasal 00 needed Medical spray (migraine) Branch . midazolam 2022-0 Yes [id number] 5mg Use 5 mg [facility] (NAYZILAM) 2-01 in each ity of 5 mg/spray 00:00: nostril as [place] (0.1 mL) 00 needed Medical [place] (seizure). Branch levETIRAcet 2022-0 Yes [id number] 1000mg Take 10 mL [facility] (KEPPRA) 2-01 by mouth ity of 100 mg/mL 00:00: in the [place] oral 00 morning Medical solution and 10 mL Branch in the evening. SUMAtriptan 2022-0 Yes [id number] 20mg Use 1 [facility] 20 2-01 [place] in 1 ity of mg/actuatio 00:00: nostril as [place] n nasal 00 needed Medical spray (migraine) Branch . midazolam 2022-0 Yes [id number] 5mg Use 5 mg [facility] ([facility]ZILAM) 2-01 in each ity of 5 mg/spray 00:00: nostril as [place] (0.1 mL) 00 needed Medical [place] (seizure). Branch levETIRAcet 2022-0 Yes [id number] 1000mg Take 10 mL [facility] ([facility]PPRA) 2-01 by mouth ity of 100 mg/mL 00:00: in the [place] oral 00 morning Medical solution and 10 mL Branch in the evening. SUMAtriptan 2022-0 Yes [id number] 20mg Use 1 [facility] 20 2-01 [place] in 1 ity of mg/actuatio 00:00: nostril as [place] n nasal 00 needed Medical spray (migraine) Branch . midazolam 2022-0 Yes [id number] 5mg Use 5 mg [facility] ([facility]ZILAM) 2-01 in each ity of 5 mg/spray 00:00: nostril as [place] (0.1 mL) 00 needed Medical [place] (seizure). Branch levETIRAcet 2022-0 Yes [id number] 1000mg Take 10 mL [facility] ([facility]) 2-01 by mouth ity of 100 mg/mL 00:00: in the [place] oral 00 morning Medical solution and 10 mL Branch in the evening. SUMAtriptan 2022-0 Yes [id number] 20mg Use 1 [facility] 20 2-01 [place] in 1 ity of mg/actuatio 00:00: nostril as [place] n nasal 00 needed Medical spray (migraine) Branch . midazolam 2022-0 Yes [id number] 5mg Use 5 mg [facility] ([facility]IL[facility]) 2-01 in each ity of 5 mg/spray 00:00: nostril as [place] (0.1 mL) 00 needed [facility] [place] (seizure). Branch levETIRAcet 2022-0 Yes [id number] 1000mg Take 10 mL [facility] ([facility]PPR[facility]) 2-01 by mouth ity of 100 mg/mL 00:00: in the [place] oral 00 morning Medical solution and 10 mL Branch in the evening. SUMAtriptan 2022-0 Yes [id number] 20mg Use 1 [facility] 20 2-01 [place] in 1 ity of mg/actuatio 00:00: nostril as [place] n nasal 00 needed Medical spray (migraine) Branch . midazolam 2022-0 Yes [id number] 5mg Use 5 mg [facility] ([facility]IL[facility]) 2-01 in each ity of 5 mg/spray 00:00: nostril as [place] (0.1 mL) 00 needed Medical [place] (seizure). Branch levETIRAcet 0 Yes [id number] 1000mg Take 10 mL [facility] ([facility]) 2-01 by mouth ity of 100 mg/mL 00:00: in the [place] oral 00 morning Medical solution and 10 mL Branch in the evening. SUMAtriptan 2022-0 Yes [id number] 20mg Use 1 [facility] 20 2-01 [place] in 1 ity of mg/actuatio 00:00: nostril as [place] n nasal 00 needed Medical spray (migraine) Branch . midazolam 2022-0 Yes [id number] 5mg Use 5 mg [facility] ([facility]IL[facility]) 2-01 in each ity of 5 mg/spray 00:00: nostril as [place] (0.1 mL) 00 needed [facility] [place] (seizure). Branch levETIRAcet 2022-0 Yes [id number] 1000mg Take 10 mL [facility] ([facility]PPRA) 2-01 by mouth ity of 100 mg/mL 00:00: in the [place] oral 00 morning Medical solution and 10 mL Branch in the evening. SUMAtriptan 2022-0 Yes [id number] 20mg Use 1 [facility] 20 2-01 [place] in 1 ity of mg/actuatio 00:00: nostril as [place] n nasal 00 needed Medical spray (migraine) Branch . midazolam 2022-0 Yes [id number] 5mg Use 5 mg [facility] ([facility]IL[facility]) 2-01 in each ity of 5 mg/spray 00:00: nostril as [place] (0.1 mL) 00 needed Medical [place] (seizure). Branch levETIRAcet 2022-0 Yes [id number] 1000mg Take 10 mL [facility] ([facility]PPRA) 2-01 by mouth ity of 100 mg/mL 00:00: in the [place] oral 00 morning Medical solution and 10 mL Branch in the evening. SUMAtriptan 2022-0 Yes [id number] 20mg Use 1 [facility] 20 2-01 [place] in 1 ity of mg/actuatio 00:00: nostril as [place] n nasal 00 needed Medical spray (migraine) Branch . midazolam 2022-0 Yes [id number] 5mg Use 5 mg [facility] ([facility]ZIL[facility]) 2-01 in each ity of 5 mg/spray 00:00: nostril as [place] (0.1 mL) 00 needed Medical [place] (seizure). Branch levETIRAcet 2022-0 Yes [id number] 1000mg Take 10 mL [facility] ([facility]PPRA) 2-01 by mouth ity of 100 mg/mL 00:00: in the [place] oral 00 morning Medical solution and 10 mL Branch in the evening. SUMAtriptan 2022-0 Yes [id number] 20mg Use 1 [facility] 20 2-01 [place] in 1 ity of mg/actuatio 00:00: nostril as [place] n nasal 00 needed Medical spray (migraine) Branch . midazolam 2022-0 Yes [id number] 5mg Use 5 mg [facility] ([facility]ZIL[facility]) 2-01 in each ity of 5 mg/spray 00:00: nostril as [place] (0.1 mL) 00 needed [facility] [place] (seizure). Branch levETIRAcet 2022-0 Yes [id number] 1000mg Take 10 mL [facility] (KEPPRA) 2-01 by mouth ity of 100 mg/mL 00:00: in the [place] oral 00 morning Medical solution and 10 mL Branch in the evening. SUMAtriptan 2022-0 Yes [id number] 20mg Use 1 [facility] 20 2-01 [place] in 1 ity of mg/actuatio 00:00: nostril as [place] n nasal 00 needed Medical spray (migraine) Branch . midazolam 2022-0 Yes [id number] 5mg Use 5 mg [facility] (NAYZILAM) 2-01 in each ity of 5 mg/spray 00:00: nostril as [place] (0.1 mL) 00 needed Medical [place] (seizure). Branch levETIRAcet 2022-0 Yes [id number] 1000mg Take 10 mL [facility] ([facility]PPRA) 2-01 by mouth ity of 100 mg/mL 00:00: in the [place] oral 00 morning Medical solution and 10 mL Branch in the evening. SUMAtriptan 2022-0 Yes [id number] 20mg Use 1 [facility] 20 2-01 [place] in 1 ity of mg/actuatio 00:00: nostril as [place] n nasal 00 needed Medical spray (migraine) Branch . midazolam 2022-0 Yes [id number] 5mg Use 5 mg [facility] ([facility]ZILAM) 2-01 in each ity of 5 mg/spray 00:00: nostril as [place] (0.1 mL) 00 needed Medical [place] (seizure). Branch levETIRAcet 2022-0 Yes [id number] 1000mg Take 10 mL [facility] (KEPPRA) 2-01 by mouth ity of 100 mg/mL 00:00: in the [place] oral 00 morning Medical solution and 10 mL Branch in the evening. SUMAtriptan 2022-0 Yes [id number] 20mg Use 1 [facility] 20 2-01 [place] in 1 ity of mg/actuatio 00:00: nostril as [place] n nasal 00 needed Medical spray (migraine) Branch . midazolam 2022-0 Yes [id number] 5mg Use 5 mg [facility] ([facility]IL[facility]) 2-01 in each ity of 5 mg/spray 00:00: nostril as [place] (0.1 mL) 00 needed Medical [place] (seizure). Branch levETIRAcet 2022-0 Yes [id number] 1000mg Take 10 mL [facility] ([facility]PPRA) 2-01 by mouth ity of 100 mg/mL 00:00: in the [place] oral 00 morning Medical solution and 10 mL Branch in the evening. SUMAtriptan 2022-0 Yes [id number] 20mg Use 1 [facility] 20 2-01 [place] in 1 ity of mg/actuatio 00:00: nostril as [place] n nasal 00 needed Medical spray (migraine) Branch . midazolam 2022-0 Yes [id number] 5mg Use 5 mg [facility] ([facility]IL[facility]) 2-01 in each ity of 5 mg/spray 00:00: nostril as [place] (0.1 mL) 00 needed Medical [place] (seizure). Branch levETIRAcet 2022-0 Yes [id number] 1000mg Take 10 mL [facility] ([facility]PPRA) 2-01 by mouth ity of 100 mg/mL 00:00: in the [place] oral 00 morning Medical solution and 10 mL Branch in the evening. SUMAtriptan 2022-0 Yes [id number] 20mg Use 1 [facility] 20 2-01 [place] in 1 ity of mg/actuatio 00:00: nostril as [place] n nasal 00 needed Medical spray (migraine) Branch . midazolam 2022-0 Yes [id number] 5mg Use 5 mg [facility] ([facility]IL[facility]) 2-01 in each ity of 5 mg/spray 00:00: nostril as [place] (0.1 mL) 00 needed Medical [place] (seizure). Branch levETIRAcet 2022-0 Yes [id number] 1000mg Take 10 mL [facility] ([facility]PPRA) 2-01 by mouth ity of 100 mg/mL 00:00: in the [place] oral 00 morning Medical solution and 10 mL Branch in the evening. SUMAtriptan 2022-0 Yes [id number] 20mg Use 1 [facility] 20 2-01 [place] in 1 ity of mg/actuatio 00:00: nostril as [place] n nasal 00 needed Medical spray (migraine) Branch . midazolam 2022-0 Yes [id number] 5mg Use 5 mg [facility] ([facility]ZIL[facility]) 2-01 in each ity of 5 mg/spray 00:00: nostril as [place] (0.1 mL) 00 needed Medical [place] (seizure). Branch levETIRAcet 2022-0 Yes [id number] 1000mg Take 10 mL [facility] ([facility]PPRA) 2-01 by mouth ity of 100 mg/mL 00:00: in the [place] oral 00 morning Medical solution and 10 mL Branch in the evening. SUMAtriptan 2022-0 Yes [id number] 20mg Use 1 [facility] 20 2-01 [place] in 1 ity of mg/actuatio 00:00: nostril as [place] n nasal 00 needed Medical spray (migraine) Branch . midazolam 2022-0 Yes [id number] 5mg Use 5 mg [facility] ([facility]ZILAM) 2-01 in each ity of 5 mg/spray 00:00: nostril as [place] (0.1 mL) 00 needed Medical [place] (seizure). Branch levETIRAcet 0 Yes [id number] 1000mg Take 10 mL [facility] (KEPPRA) 2-01 by mouth ity of 100 mg/mL 00:00: in the [place] oral 00 morning Medical solution and 10 mL Branch in the evening. SUMAtriptan 2022-0 Yes [id number] 20mg Use 1 [facility] 20 2-01 [place] in 1 ity of mg/actuatio 00:00: nostril as [place] n nasal 00 needed Medical spray (migraine) Branch . midazolam 2022-0 Yes [id number] 5mg Use 5 mg [facility] (NA[facility]ZILAM) 2-01 in each ity of 5 mg/spray 00:00: nostril as [place] (0.1 mL) 00 needed Medical [place] (seizure). Branch levETIRAcet 0 Yes [id number] 1000mg Take 10 mL [facility] (KEPPRA) 2-01 by mouth ity of 100 mg/mL 00:00: in the [place] oral 00 morning Medical solution and 10 mL Branch in the evening. SUMAtriptan 2022-0 Yes [id number] 20mg Use 1 [facility] 20 2-01 [place] in 1 ity of mg/actuatio 00:00: nostril as [place] n nasal 00 needed Medical spray (migraine) Branch . midazolam 2022-0 Yes [id number] 5mg Use 5 mg [facility] (NAYZILAM) 2-01 in each ity of 5 mg/spray 00:00: nostril as [place] (0.1 mL) 00 needed Medical [place] (seizure). Branch levETIRAcet 0 Yes [id number] 1000mg Take 10 mL [facility] (KEPPRA) 2-01 by mouth ity of 100 mg/mL 00:00: in the [place] oral 00 morning Medical solution and 10 mL Branch in the evening. SUMAtriptan 2022-0 Yes [id number] 20mg Use 1 [facility] 20 2-01 [place] in 1 ity of mg/actuatio 00:00: nostril as [place] n nasal 00 needed Medical spray (migraine) Branch . midazolam 2022-0 Yes [id number] 5mg Use 5 mg [facility] (NA[facility]ZILAM) 2-01 in each ity of 5 mg/spray 00:00: nostril as [place] (0.1 mL) 00 needed Medical [place] (seizure). Branch levETIRAcet 2022-0 Yes [id number] 1000mg Take 10 mL [facility] (KEPPRA) 2-01 by mouth ity of 100 mg/mL 00:00: in the [place] oral 00 morning Medical solution and 10 mL Branch in the evening. SUMAtriptan 2022-0 Yes [id number] 20mg Use 1 [facility] 20 2-01 [place] in 1 ity of mg/actuatio 00:00: nostril as [place] n nasal 00 needed Medical spray (migraine) Branch . midazolam 2022-0 Yes [id number] 5mg Use 5 mg [facility] ([facility]YZILAM) 2-01 in each ity of 5 mg/spray 00:00: nostril as [place] (0.1 mL) 00 needed Medical [place] (seizure). Branch levETIRAcet 2022-0 Yes [id number] 1000mg Take 10 mL [facility] (KEPPRA) 2-01 by mouth ity of 100 mg/mL 00:00: in the [place] oral 00 morning Medical solution and 10 mL Branch in the evening. SUMAtriptan 2022-0 Yes [id number] 20mg Use 1 [facility] 20 2-01 [place] in 1 ity of mg/actuatio 00:00: nostril as [place] n nasal 00 needed Medical spray (migraine) Branch . midazolam 2022-0 Yes [id number] 5mg Use 5 mg [facility] ([facility]IL[facility]) 2-01 in each ity of 5 mg/spray 00:00: nostril as [place] (0.1 mL) 00 needed Medical [place] (seizure). Branch levETIRAcet 2022-0 Yes [id number] 1000mg Take 10 mL [facility] (KEPPRA) 2-01 by mouth ity of 100 mg/mL 00:00: in the [place] oral 00 morning Medical solution and 10 mL Branch in the evening. SUMAtriptan 2022-0 Yes [id number] 20mg Use 1 [facility] 20 2-01 [place] in 1 ity of mg/actuatio 00:00: nostril as [place] n nasal 00 needed Medical spray (migraine) Branch . midazolam 2022-0 Yes [id number] 5mg Use 5 mg [facility] (NAYZILAM) 2-01 in each ity of 5 mg/spray 00:00: nostril as [place] (0.1 mL) 00 needed Medical [place] (seizure). Branch levETIRAcet 2022-0 Yes [id number] 1000mg Take 10 mL [facility] (KEPPRA) 2-01 by mouth ity of 100 mg/mL 00:00: in the [place] oral 00 morning Medical solution and 10 mL Branch in the evening. SUMAtriptan 2022-0 Yes [id number] 20mg Use 1 [facility] 20 2-01 [place] in 1 ity of mg/actuatio 00:00: nostril as [place] n nasal 00 needed Medical spray (migraine) Branch . midazolam 2022-0 Yes [id number] 5mg Use 5 mg [facility] ([facility]IL[facility]) 2-01 in each ity of 5 mg/spray 00:00: nostril as [place] (0.1 mL) 00 needed Medical [place] (seizure). Branch levETIRAcet 2022-0 Yes [id number] 1000mg Take 10 mL [facility] (KEPPRA) 2-01 by mouth ity of 100 mg/mL 00:00: in the [place] oral 00 morning Medical solution and 10 mL Branch in the evening. SUMAtriptan 2022-0 Yes [id number] 20mg Use 1 [facility] 20 2-01 [place] in 1 ity of mg/actuatio 00:00: nostril as [place] n nasal 00 needed Medical spray (migraine) Branch . midazolam 2022-0 Yes [id number] 5mg Use 5 mg [facility] (NAYZILAM) 2-01 in each ity of 5 mg/spray 00:00: nostril as [place] (0.1 mL) 00 needed Medical [place] (seizure). Branch levETIRAcet 2022-0 Yes [id number] 1000mg Take 10 mL [facility] (KEPPRA) 2-01 by mouth ity of 100 mg/mL 00:00: in the [place] oral 00 morning Medical solution and 10 mL Branch in the evening. SUMAtriptan 2022-0 Yes [id number] 20mg Use 1 [facility] 20 2-01 [place] in 1 ity of mg/actuatio 00:00: nostril as [place] n nasal 00 needed Medical spray (migraine) Branch . midazolam 2022-0 Yes [id number] 5mg Use 5 mg [facility] (NA[facility]ZILAM) 2-01 in each ity of 5 mg/spray 00:00: nostril as [place] (0.1 mL) 00 needed Medical [place] (seizure). Branch levETIRAcet 0 Yes [id number] 1000mg Take 10 mL [facility] (KEPPRA) 2-01 by mouth ity of 100 mg/mL 00:00: in the [place] oral 00 morning Medical solution and 10 mL Branch in the evening. SUMAtriptan 2022-0 Yes [id number] 20mg Use 1 [facility] 20 2-01 [place] in 1 ity of mg/actuatio 00:00: nostril as [place] n nasal 00 needed Medical spray (migraine) Branch . midazolam 2022-0 Yes [id number] 5mg Use 5 mg [facility] (NAYZILAM) 2-01 in each ity of 5 mg/spray 00:00: nostril as [place] (0.1 mL) 00 needed Medical [place] (seizure). Branch levETIRAcet 0 Yes [id number] 1000mg Take 10 mL [facility] (KEPPRA) 2-01 by mouth ity of 100 mg/mL 00:00: in the [place] oral 00 morning Medical solution and 10 mL Branch in the evening. SUMAtriptan 2022-0 Yes [id number] 20mg Use 1 [facility] 20 2-01 [place] in 1 ity of mg/actuatio 00:00: nostril as [place] n nasal 00 needed Medical spray (migraine) Branch . midazolam 2022-0 Yes [id number] 5mg Use 5 mg [facility] (NAYZILAM) 2-01 in each ity of 5 mg/spray 00:00: nostril as [place] (0.1 mL) 00 needed Medical [place] (seizure). Branch levETIRAcet 2022-0 Yes [id number] 1000mg Take 10 mL [facility] (KEPPRA) 2-01 by mouth ity of 100 mg/mL 00:00: in the [place] oral 00 morning Medical solution and 10 mL Branch in the evening. SUMAtriptan 2022-0 Yes [id number] 20mg Use 1 [facility] 20 2-01 [place] in 1 ity of mg/actuatio 00:00: nostril as [place] n nasal 00 needed Medical spray (migraine) Branch . midazolam 2022-0 Yes [id number] 5mg Use 5 mg [facility] (NAYZILAM) 2-01 in each ity of 5 mg/spray 00:00: nostril as [place] (0.1 mL) 00 needed Medical [place] (seizure). Branch levETIRAcet 2022-0 Yes [id number] 1000mg Take 10 mL [facility] (KEPPRA) 2-01 by mouth ity of 100 mg/mL 00:00: in the [place] oral 00 morning Medical solution and 10 mL Branch in the evening. SUMAtriptan 2022-0 Yes [id number] 20mg Use 1 [facility] 20 2-01 [place] in 1 ity of mg/actuatio 00:00: nostril as [place] n nasal 00 needed Medical spray (migraine) Branch . midazolam 2022-0 Yes [id number] 5mg Use 5 mg [facility] (NAYZILAM) 2-01 in each ity of 5 mg/spray 00:00: nostril as [place] (0.1 mL) 00 needed Medical [place] (seizure). Branch levETIRAcet 2022-0 Yes [id number] 1000mg Take 10 mL [facility] (KEPPRA) 2-01 by mouth ity of 100 mg/mL 00:00: in the [place] oral 00 morning Medical solution and 10 mL Branch in the evening. SUMAtriptan 2022-0 Yes [id number] 20mg Use 1 [facility] 20 2-01 [place] in 1 ity of mg/actuatio 00:00: nostril as [place] n nasal 00 needed Medical spray (migraine) Branch . midazolam 2022-0 Yes [id number] 5mg Use 5 mg [facility] (NA[facility]ZILAM) 2-01 in each ity of 5 mg/spray 00:00: nostril as [place] (0.1 mL) 00 needed Medical [place] (seizure). Branch levETIRAcet 2022-0 Yes [id number] 1000mg Take 10 mL [facility] (KEPPRA) 2-01 by mouth ity of 100 mg/mL 00:00: in the [place] oral 00 morning Medical solution and 10 mL Branch in the evening. SUMAtriptan 2022-0 Yes [id number] 20mg Use 1 [facility] 20 2-01 [place] in 1 ity of mg/actuatio 00:00: nostril as [place] n nasal 00 needed Medical spray (migraine) Branch . midazolam 2022-0 Yes [id number] 5mg Use 5 mg [facility] (NAYZILAM) 2-01 in each ity of 5 mg/spray 00:00: nostril as [place] (0.1 mL) 00 needed Medical [place] (seizure). Branch levETIRAcet 2022-0 Yes [id number] 1000mg Take 10 mL [facility] (KEPPRA) 2-01 by mouth ity of 100 mg/mL 00:00: in the [place] oral 00 morning Medical solution and 10 mL Branch in the evening. SUMAtriptan 2022-0 Yes [id number] 20mg Use 1 [facility] 20 2-01 [place] in 1 ity of mg/actuatio 00:00: nostril as [place] n nasal 00 needed Medical spray (migraine) Branch . midazolam 2022-0 Yes [id number] 5mg Use 5 mg [facility] ([facility]ZILAM) 2-01 in each ity of 5 mg/spray 00:00: nostril as [place] (0.1 mL) 00 needed Medical [place] (seizure). Branch levETIRAcet 2022-0 Yes [id number] 1000mg Take 10 mL [facility] (KEPPRA) 2-01 by mouth ity of 100 mg/mL 00:00: in the [place] oral 00 morning Medical solution and 10 mL Branch in the evening. SUMAtriptan 2022-0 Yes [id number] 20mg Use 1 [facility] 20 2-01 [place] in 1 ity of mg/actuatio 00:00: nostril as [place] n nasal 00 needed Medical spray (migraine) Branch . midazolam 3-0 Yes [id number] 5mg Use 5 mg [facility] ([facility]ILAM) 2-01 in each ity of 5 mg/spray 00:00: nostril as [place] (0.1 mL) 00 needed Medical [place] (seizure). Branch levETIRAcet 2022-0 Yes [id number] 1000mg Take 10 mL [facility] (KEPPRA) 2-01 by mouth ity of 100 mg/mL 00:00: in the [place] oral 00 morning Medical solution and 10 mL Branch in the evening. SUMAtriptan 2022-0 Yes [id number] 20mg Use 1 [facility] 20 2-01 [place] in 1 ity of mg/actuatio 00:00: nostril as [place] n nasal 00 needed Medical spray (migraine) Branch . midazolam 2022-0 Yes [id number] 5mg Use 5 mg [facility] ([facility]ILAM) 2-01 in each ity of 5 mg/spray 00:00: nostril as [place] (0.1 mL) 00 needed Medical [place] (seizure). Branch levETIRAcet 2022-0 Yes [id number] 1000mg Take 10 mL [facility] (KEPPRA) 2-01 by mouth ity of 100 mg/mL 00:00: in the [place] oral 00 morning Medical solution and 10 mL Branch in the evening. SUMAtriptan 2022-0 Yes [id number] 20mg Use 1 [facility] 20 2-01 [place] in 1 ity of mg/actuatio 00:00: nostril as [place] n nasal 00 needed Medical spray (migraine) Branch . midazolam 2022-0 Yes [id number] 5mg Use 5 mg [facility] ([facility]IL[facility]) 2-01 in each ity of 5 mg/spray 00:00: nostril as [place] (0.1 mL) 00 needed Medical [place] (seizure). Branch levETIRAcet 2022-0 Yes [id number] 1000mg Take 10 mL [facility] (KEPPRA) 2-01 by mouth ity of 100 mg/mL 00:00: in the [place] oral 00 morning Medical solution and 10 mL Branch in the evening. SUMAtriptan 2022-0 Yes [id number] 20mg Use 1 [facility] 20 2-01 [place] in 1 ity of mg/actuatio 00:00: nostril as [place] n nasal 00 needed Medical spray (migraine) Branch . midazolam 2022-0 Yes [id number] 5mg Use 5 mg [facility] (NA[facility]IL[facility]) 2-01 in each ity of 5 mg/spray 00:00: nostril as [place] (0.1 mL) 00 needed [facility] [place] (seizure). Branch levETIRAcet 2022-0 Yes [id number] 1000mg Take 10 mL [facility] (KEPPRA) 2-01 by mouth ity of 100 mg/mL 00:00: in the [place] oral 00 morning Medical solution and 10 mL Branch in the evening. SUMAtriptan 2022-0 Yes [id number] 20mg Use 1 [facility] 20 2-01 [place] in 1 ity of mg/actuatio 00:00: nostril as [place] n nasal 00 needed Medical spray (migraine) Branch . midazolam 2022-0 Yes [id number] 5mg Use 5 mg [facility] ([facility]ILAM) 2-01 in each ity of 5 mg/spray 00:00: nostril as [place] (0.1 mL) 00 needed [facility] [place] (seizure). Branch levETIRAcet 2022-0 Yes [id number] 1000mg Take 10 mL [facility] (KEPPRA) 2-01 by mouth ity of 100 mg/mL 00:00: in the [place] oral 00 morning Medical solution and 10 mL Branch in the evening. SUMAtriptan 2022-0 Yes [id number] 20mg Use 1 [facility] 20 2-01 [place] in 1 ity of mg/actuatio 00:00: nostril as [place] n nasal 00 needed Medical spray (migraine) Branch . midazolam 2022-0 Yes [id number] 5mg Use 5 mg [facility] (NA[facility]ZILAM) 2-01 in each ity of 5 mg/spray 00:00: nostril as [place] (0.1 mL) 00 needed [facility] [place] (seizure). Branch levETIRAcet 2022-0 Yes [id number] 1000mg Take 10 mL [facility] (KEPPRA) 2-01 by mouth ity of 100 mg/mL 00:00: in the [place] oral 00 morning Medical solution and 10 mL Branch in the evening. SUMAtriptan 2022-0 Yes [id number] 20mg Use 1 [facility] 20 2-01 [place] in 1 ity of mg/actuatio 00:00: nostril as [place] n nasal 00 needed Medical spray (migraine) Branch . midazolam 2022-0 Yes [id number] 5mg Use 5 mg [facility] ([facility]ILAM) 2-01 in each ity of 5 mg/spray 00:00: nostril as [place] (0.1 mL) 00 needed [facility] [place] (seizure). Branch levETIRAcet 2022-0 Yes [id number] 1000mg Take 10 mL [facility] (KEPPRA) 2-01 by mouth ity of 100 mg/mL 00:00: in the [place] oral 00 morning Medical solution and 10 mL Branch in the evening. SUMAtriptan 2022-0 Yes [id number] 20mg Use 1 [facility] 20 2-01 [place] in 1 ity of mg/actuatio 00:00: nostril as [place] n nasal 00 needed Medical spray (migraine) Branch . midazolam 2022-0 Yes [id number] 5mg Use 5 mg [facility] ([facility]IL[facility]) 2-01 in each ity of 5 mg/spray 00:00: nostril as [place] (0.1 mL) 00 needed [facility] [place] (seizure). Branch levETIRAcet 2022-0 Yes [id number] 1000mg Take 10 mL [facility] (KEPPRA) 2-01 by mouth ity of 100 mg/mL 00:00: in the [place] oral 00 morning Medical solution and 10 mL Branch in the evening. SUMAtriptan 2022-0 Yes [id number] 20mg Use 1 [facility] 20 2-01 [place] in 1 ity of mg/actuatio 00:00: nostril as [place] n nasal 00 needed Medical spray (migraine) Branch . midazolam 2022-0 Yes [id number] 5mg Use 5 mg [facility] ([facility]IL[facility]) 2-01 in each ity of 5 mg/spray 00:00: nostril as [place] (0.1 mL) 00 needed [facility] [place] (seizure). Branch levETIRAcet 2022-0 Yes [id number] 1000mg Take 10 mL [facility] (KEPPRA) 2-01 by mouth ity of 100 mg/mL 00:00: in the [place] oral 00 morning Medical solution and 10 mL Branch in the evening. SUMAtriptan 2022-0 Yes [id number] 20mg Use 1 [facility] 20 2-01 [place] in 1 ity of mg/actuatio 00:00: nostril as [place] n nasal 00 needed Medical spray (migraine) Branch . midazolam 2022-0 Yes [id number] 5mg Use 5 mg [facility] ([facility]IL[facility]) 2-01 in each ity of 5 mg/spray 00:00: nostril as [place] (0.1 mL) 00 needed [facility] [place] (seizure). Branch levETIRAcet 2022-0 Yes [id number] 1000mg Take 10 mL [facility] (KEPPRA) 2-01 by mouth ity of 100 mg/mL 00:00: in the [place] oral 00 morning Medical solution and 10 mL Branch in the evening. SUMAtriptan 2022-0 Yes [id number] 20mg Use 1 [facility] 20 2-01 [place] in 1 ity of mg/actuatio 00:00: nostril as [place] n nasal 00 needed Medical spray (migraine) Branch . midazolam 2022-0 Yes [id number] 5mg Use 5 mg [facility] (NA[facility]ZILAM) 2-01 in each ity of 5 mg/spray 00:00: nostril as [place] (0.1 mL) 00 needed [facility] [place] (seizure). Branch levETIRAcet 0 Yes [id number] 1000mg Take 10 mL [facility] (KEPPRA) 2-01 by mouth ity of 100 mg/mL 00:00: in the [place] oral 00 morning Medical solution and 10 mL Branch in the evening. SUMAtriptan 2022-0 Yes [id number] 20mg Use 1 [facility] 20 2-01 [place] in 1 ity of mg/actuatio 00:00: nostril as [place] n nasal 00 needed Medical spray (migraine) Branch . midazolam 2022-0 Yes [id number] 5mg Use 5 mg [facility] ([facility]IL[facility]) 2-01 in each ity of 5 mg/spray 00:00: nostril as [place] (0.1 mL) 00 needed [facility] [place] (seizure). Branch levETIRAcet 2022-0 Yes [id number] 1000mg Take 10 mL [facility] (KEPPRA) 2-01 by mouth ity of 100 mg/mL 00:00: in the [place] oral 00 morning Medical solution and 10 mL Branch in the evening. SUMAtriptan 2022-0 Yes [id number] 20mg Use 1 [facility] 20 2-01 [place] in 1 ity of mg/actuatio 00:00: nostril as [place] n nasal 00 needed Medical spray (migraine) Branch . midazolam 2022-0 Yes [id number] 5mg Use 5 mg [facility] (NAYZILAM) 2-01 in each ity of 5 mg/spray 00:00: nostril as [place] (0.1 mL) 00 needed [facility] [place] (seizure). Branch levETIRAcet 2022-0 Yes [id number] 1000mg Take 10 mL [facility] (KEPPRA) 2-01 by mouth ity of 100 mg/mL 00:00: in the [place] oral 00 morning Medical solution and 10 mL Branch in the evening. SUMAtriptan 2022-0 Yes [id number] 20mg Use 1 [facility] 20 2-01 [place] in 1 ity of mg/actuatio 00:00: nostril as [place] n nasal 00 needed Medical spray (migraine) Branch . midazolam 2022-0 Yes [id number] 5mg Use 5 mg [facility] (NAYZILAM) 2-01 in each ity of 5 mg/spray 00:00: nostril as [place] (0.1 mL) 00 needed Medical [place] (seizure). Branch levETIRAcet 2022-0 Yes [id number] 1000mg Take 10 mL [facility] am (KEPPRA) 2-01 by mouth ity of 100 mg/mL 00:00: in the [place] oral 00 morning Medical solution and 10 mL Branch in the evening. SUMAtriptan 2022-0 Yes [id number] 20mg Use 1 [facility] 20 2-01 [place] in 1 ity of mg/actuatio 00:00: nostril as [place] n nasal 00 needed Medical spray (migraine) Branch . midazolam 2022-0 Yes [id number] 5mg Use 5 mg [facility] (NAYZILAM) 2-01 in each ity of 5 mg/spray 00:00: nostril as [place] (0.1 mL) 00 needed Medical [place] (seizure). Branch levETIRAcet 2022-0 Yes [id number] 1000mg Take 10 mL [facility] am (KEPPRA) 2-01 by mouth ity of 100 mg/mL 00:00: in the [place] oral 00 morning Medical solution and 10 mL Branch in the evening. SUMAtriptan 2022-0 Yes [id number] 20mg Use 1 [facility] 20 2-01 [place] in 1 ity of mg/actuatio 00:00: nostril as [place] n nasal 00 needed Medical spray (migraine) Branch . midazolam 2022-0 Yes [id number] 5mg Use 5 mg [facility] (NAYZILAM) 2-01 in each ity of 5 mg/spray 00:00: nostril as [place] (0.1 mL) 00 needed Medical [place] (seizure). Branch levETIRAcet 2022-0 Yes [id number] 1000mg Take 10 mL [facility] am (KEPPRA) 2-01 by mouth ity of 100 mg/mL 00:00: in the [place] oral 00 morning Medical solution and 10 mL Branch in the evening. SUMAtriptan 2022-0 Yes [id number] 20mg Use 1 [facility] 20 2-01 [place] in 1 ity of mg/actuatio 00:00: nostril as [place] n nasal 00 needed Medical spray (migraine) Branch . midazolam 2022-0 Yes [id number] 5mg Use 5 mg [facility] (NAYZILAM) 2-01 in each ity of 5 mg/spray 00:00: nostril as [place] (0.1 mL) 00 needed Medical [place] (seizure). Branch levETIRAcet 2022-0 Yes [id number] 1000mg Take 10 mL [facility] am (KEPPRA) 2-01 by mouth ity of 100 mg/mL 00:00: in the [place] oral 00 morning Medical solution and 10 mL Branch in the evening. SUMAtriptan 2022-0 Yes [id number] 20mg Use 1 [facility] 20 2-01 [place] in 1 ity of mg/actuatio 00:00: nostril as [place] n nasal 00 needed Medical spray (migraine) Branch . midazolam 2022-0 Yes [id number] 5mg Use 5 mg [facility] (NAYZILAM) 2-01 in each ity of 5 mg/spray 00:00: nostril as [place] (0.1 mL) 00 needed Medical [place] (seizure). Branch levETIRAcet 2022-0 Yes [id number] 1000mg Take 10 mL [facility] am (KEPPRA) 2-01 by mouth ity of 100 mg/mL 00:00: in the [place] oral 00 morning Medical solution and 10 mL Branch in the evening. SUMAtriptan 2022-0 Yes [id number] 20mg Use 1 [facility] 20 2-01 [place] in 1 ity of mg/actuatio 00:00: nostril as [place] n nasal 00 needed Medical spray (migraine) Branch . midazolam 2022-0 Yes [id number] 5mg Use 5 mg [facility] (NAYZILAM) 2-01 in each ity of 5 mg/spray 00:00: nostril as [place] (0.1 mL) 00 needed Medical [place] (seizure). Branch levETIRAcet 0 Yes [id number] 1000mg Take 10 mL [facility] am (KEPPRA) 2-01 by mouth ity of 100 mg/mL 00:00: in the [place] oral 00 morning Medical solution and 10 mL Branch in the evening. SUMAtriptan 2022-0 Yes [id number] 20mg Use 1 [facility] 20 2-01 [place] in 1 ity of mg/actuatio 00:00: nostril as [place] n nasal 00 needed Medical spray (migraine) Branch . midazolam 2022-0 Yes [id number] 5mg Use 5 mg [facility] (NAYZILAM) 2-01 in each ity of 5 mg/spray 00:00: nostril as [place] (0.1 mL) 00 needed Medical [place] (seizure). Branch levETIRAcet 0 Yes [id number] 1000mg Take 10 mL [facility] am (KEPPRA) 2-01 by mouth ity of 100 mg/mL 00:00: in the [place] oral 00 morning Medical solution and 10 mL Branch in the evening. midazolam 2022-0 Yes [id number] 5mg Use 5 mg [facility] (NAYZILAM) 2-01 in each ity of 5 mg/spray 00:00: nostril as [place] (0.1 mL) 00 needed Medical [place] (seizure). Branch levETIRAcet 0 Yes [id number] 1000mg Take 10 mL [facility] am (KEPPRA) 2-01 by mouth ity of 100 mg/mL 00:00: in the [place] oral 00 morning Medical solution and 10 mL Branch in the evening. midazolam 2022-0 Yes [id number] 5mg Use 5 mg [facility] (NAYZILAM) 2-01 in each ity of 5 mg/spray 00:00: nostril as [place] (0.1 mL) 00 needed Medical [place] (seizure). Branch levETIRAcet Yes [id number] 1000mg Take 10 mL [facility] am (KEPPRA) 2-01 by mouth ity of 100 mg/mL 00:00: in the [place] oral 00 morning Medical solution and 10 mL Branch in the evening. midazolam Yes [id number] 5mg Use 5 mg [facility] (NAYZILAM) 2-01 in each ity of 5 mg/spray 00:00: nostril as [place] (0.1 mL) 00 needed Medical [place] (seizure). Branch levETIRAcet Yes [id number] 1000mg Take 10 mL [facility] am (KEPPRA) 2-01 by mouth ity of 100 mg/mL 00:00: in the [place] oral 00 morning Medical solution and 10 mL Branch in the evening. midazolam Yes [id number] 5mg Use 5 mg [facility] (NAYZILAM) 2-01 in each ity of 5 mg/spray 00:00: nostril as [place] (0.1 mL) 00 needed Medical [place] (seizure). Branch levETIRAcet Yes [id number] 1000mg Take 10 mL [facility] am (KEPPRA) 2-01 by mouth ity of 100 mg/mL 00:00: in the [place] oral 00 morning Medical solution and 10 mL Branch in the evening. midazolam Yes [id number] 5mg Use 5 mg [facility] (NAYZILAM) 2-01 in each ity of 5 mg/spray 00:00: nostril as [place] (0.1 mL) 00 needed Medical [place] (seizure). Branch levETIRAcet Yes [id number] 1000mg Take 10 mL [facility] am (KEPPRA) 2-01 by mouth ity of 100 mg/mL 00:00: in the [place] oral 00 morning Medical solution and 10 mL Branch in the evening. midazolam 0 Yes [id number] 5mg Use 5 mg [facility] (NAYZILAM) 2-01 in each ity of 5 mg/spray 00:00: nostril as [place] (0.1 mL) 00 needed Medical [place] (seizure). Branch levETIRAcet Yes [id number] 1000mg Take 10 mL [facility] am (KEPPRA) 2-01 by mouth ity of 100 mg/mL 00:00: in the [place] oral 00 morning Medical solution and 10 mL Branch in the evening. midazolam Yes [id number] 5mg Use 5 mg [facility] (NAYZILAM) 2-01 in each ity of 5 mg/spray 00:00: nostril as [place] (0.1 mL) 00 needed Medical [place] (seizure). Branch levETIRAcet Yes [id number] 1000mg Take 10 mL [facility] am (KEPPRA) 2-01 by mouth ity of 100 mg/mL 00:00: in the [place] oral 00 morning Medical solution and 10 mL Branch in the evening. midazolam Yes [id number] 5mg Use 5 mg [facility] (NAYZILAM) 2-01 in each ity of 5 mg/spray 00:00: nostril as [place] (0.1 mL) 00 needed Medical [place] (seizure). Branch levETIRAcet Yes [id number] 1000mg Take 10 mL [facility] am (KEPPRA) 2-01 by mouth ity of 100 mg/mL 00:00: in the [place] oral 00 morning Medical solution and 10 mL Branch in the evening. midazolam Yes [id number] 5mg Use 5 mg [facility] (NAYZILAM) 2-01 in each ity of 5 mg/spray 00:00: nostril as [place] (0.1 mL) 00 needed Medical [place] (seizure). Branch levETIRAcet Yes [id number] 1000mg Take 10 mL [facility] am (KEPPRA) 2-01 by mouth ity of 100 mg/mL 00:00: in the [place] oral 00 morning Medical solution and 10 mL Branch in the evening. midazolam 0 Yes [id number] 5mg Use 5 mg [facility] (NAYZILAM) 2-01 in each ity of 5 mg/spray 00:00: nostril as [place] (0.1 mL) 00 needed Medical [place] (seizure). Branch levETIRAcet 0 Yes [id number] 1000mg Take 10 mL [facility] am (KEPPRA) 2-01 by mouth ity of 100 mg/mL 00:00: in the [place] oral 00 morning Medical solution and 10 mL Branch in the evening. midazolam 0 Yes [id number] 5mg Use 5 mg [facility] (NAYZILAM) 2-01 in each ity of 5 mg/spray 00:00: nostril as [place] (0.1 mL) 00 needed Medical [place] (seizure). Branch levETIRAcet 0 Yes [id number] 1000mg Take 10 mL [facility] am (KEPPRA) 2-01 by mouth ity of 100 mg/mL 00:00: in the [place] oral 00 morning Medical solution and 10 mL Branch in the evening. midazolam 0 Yes [id number] 5mg Use 5 mg [facility] (NAYZILAM) 2-01 in each ity of 5 mg/spray 00:00: nostril as [place] (0.1 mL) 00 needed Medical [place] (seizure). Branch levETIRAcet 0 Yes [id number] 1000mg Take 10 mL [facility] am (KEPPRA) 2-01 by mouth ity of 100 mg/mL 00:00: in the [place] oral 00 morning Medical solution and 10 mL Branch in the evening. midazolam 0 Yes [id number] 5mg Use 5 mg [facility] (NAYZILAM) 2-01 in each ity of 5 mg/spray 00:00: nostril as [place] (0.1 mL) 00 needed Medical [place] (seizure). Branch levETIRAcet 0 Yes [id number] 1000mg Take 10 mL [facility] am (KEPPRA) 2-01 by mouth ity of 100 mg/mL 00:00: in the [place] oral 00 morning Medical solution and 10 mL Branch in the evening. midazolam 0 Yes [id number] 5mg Use 5 mg [facility] (NAYZILAM) 2-01 in each ity of 5 mg/spray 00:00: nostril as [place] (0.1 mL) 00 needed Medical [place] (seizure). Branch levETIRAcet 0 Yes [id number] 1000mg Take 10 mL [facility] am (KEPPRA) 2-01 by mouth ity of 100 mg/mL 00:00: in the [place] oral 00 morning Medical solution and 10 mL Branch in the evening. midazolam Yes [id number] 5mg Use 5 mg [facility] (NAYZILAM) 2-01 in each ity of 5 mg/spray 00:00: nostril as [place] (0.1 mL) 00 needed Medical [place] (seizure). Branch levETIRAcet Yes [id number] 1000mg Take 10 mL [facility] am (KEPPRA) 2-01 by mouth ity of 100 mg/mL 00:00: in the [place] oral 00 morning Medical solution and 10 mL Branch in the evening. midazolam Yes [id number] 5mg Use 5 mg [facility] (NAYZILAM) 2-01 in each ity of 5 mg/spray 00:00: nostril as [place] (0.1 mL) 00 needed Medical [place] (seizure). Branch levETIRAcet Yes [id number] 1000mg Take 10 mL [facility] am (KEPPRA) 2-01 by mouth ity of 100 mg/mL 00:00: in the [place] oral 00 morning Medical solution and 10 mL Branch in the evening. midazolam Yes [id number] 5mg Use 5 mg [facility] (NAYZILAM) 2-01 in each ity of 5 mg/spray 00:00: nostril as [place] (0.1 mL) 00 needed Medical [place] (seizure). Branch levETIRAcet Yes [id number] 1000mg Take 10 mL [facility] am (KEPPRA) 2-01 by mouth ity of 100 mg/mL 00:00: in the [place] oral 00 morning Medical solution and 10 mL Branch in the evening. midazolam 0 Yes [id number] 5mg Use 5 mg [facility] (NAYZILAM) 2-01 in each ity of 5 mg/spray 00:00: nostril as [place] (0.1 mL) 00 needed Medical [place] (seizure). Branch levETIRAcet Yes [id number] 1000mg Take 10 mL [facility] am (KEPPRA) 2-01 by mouth ity of 100 mg/mL 00:00: in the [place] oral 00 morning Medical solution and 10 mL Branch in the evening. midazolam 0 Yes [id number] 5mg Use 5 mg [facility] (NAYZILAM) 2-01 in each ity of 5 mg/spray 00:00: nostril as [place] (0.1 mL) 00 needed Medical [place] (seizure). Branch levETIRAcet Yes [id number] 1000mg Take 10 mL [facility] am (KEPPRA) 2-01 by mouth ity of 100 mg/mL 00:00: in the [place] oral 00 morning Medical solution and 10 mL Branch in the evening. midazolam Yes [id number] 5mg Use 5 mg [facility] (NAYZILAM) 2-01 in each ity of 5 mg/spray 00:00: nostril as [place] (0.1 mL) 00 needed Medical [place] (seizure). Branch levETIRAcet Yes [id number] 1000mg Take 10 mL [facility] am (KEPPRA) 2-01 by mouth ity of 100 mg/mL 00:00: in the [place] oral 00 morning Medical solution and 10 mL Branch in the evening. midazolam Yes [id number] 5mg Use 5 mg [facility] (NAYZILAM) 2-01 in each ity of 5 mg/spray 00:00: nostril as [place] (0.1 mL) 00 needed Medical [place] (seizure). Branch levETIRAcet Yes [id number] 1000mg Take 10 mL [facility] am (KEPPRA) 2-01 by mouth ity of 100 mg/mL 00:00: in the [place] oral 00 morning Medical solution and 10 mL Branch in the evening. midazolam 0 Yes [id number] 5mg Use 5 mg [facility] (NAYZILAM) 2-01 in each ity of 5 mg/spray 00:00: nostril as [place] (0.1 mL) 00 needed Medical [place] (seizure). Branch levETIRAcet Yes [id number] 1000mg Take 10 mL [facility] am (KEPPRA) 2-01 by mouth ity of 100 mg/mL 00:00: in the [place] oral 00 morning Medical solution and 10 mL Branch in the evening. midazolam 0 Yes [id number] 5mg Use 5 mg [facility] (NAYZILAM) 2-01 in each ity of 5 mg/spray 00:00: nostril as [place] (0.1 mL) 00 needed Medical [place] (seizure). Branch levETIRAcet 0 Yes [id number] 1000mg Take 10 mL [facility] am (KEPPRA) 2-01 by mouth ity of 100 mg/mL 00:00: in the [place] oral 00 morning Medical solution and 10 mL Branch in the evening. midazolam 0 Yes [id number] 5mg Use 5 mg [facility] (NAYZILAM) 2-01 in each ity of 5 mg/spray 00:00: nostril as [place] (0.1 mL) 00 needed Medical [place] (seizure). Branch levETIRAcet Yes [id number] 1000mg Take 10 mL [facility] am (KEPPRA) 2-01 by mouth ity of 100 mg/mL 00:00: in the [place] oral 00 morning Medical solution and 10 mL Branch in the evening. midazolam 0 Yes [id number] 5mg Use 5 mg [facility] (NAYZILAM) 2-01 in each ity of 5 mg/spray 00:00: nostril as [place] (0.1 mL) 00 needed Medical [place] (seizure). Branch levETIRAcet Yes [id number] 1000mg Take 10 mL [facility] am (KEPPRA) 2-01 by mouth ity of 100 mg/mL 00:00: in the [place] oral 00 morning Medical solution and 10 mL Branch in the evening. midazolam 0 Yes [id number] 5mg Use 5 mg [facility] (NAYZILAM) 2-01 in each ity of 5 mg/spray 00:00: nostril as [place] (0.1 mL) 00 needed Medical [place] (seizure). Branch levETIRAcet 0 Yes [id number] 1000mg Take 10 mL [facility] am (KEPPRA) 2-01 by mouth ity of 100 mg/mL 00:00: in the [place] oral 00 morning Medical solution and 10 mL Branch in the evening. midazolam 0 Yes [id number] 5mg Use 5 mg [facility] (NAYZILAM) 2-01 in each ity of 5 mg/spray 00:00: nostril as [place] (0.1 mL) 00 needed Medical [place] (seizure). Branch levETIRAcet 2023-0 Yes [id number] 1000mg Take 10 mL [facility] am (KEPPRA) 2-01 by mouth ity of 100 mg/mL 00:00: in the [facility] 00 morning Medical solution and 10 mL Branch in the evening. midazolam 2022-0 Yes [id number] 5mg Use 5 mg [facility] (NAYZILAM) 2-01 in each ity of 5 mg/spray 00:00: nostril as [place] (0.1 mL) 00 needed Medical [place] (seizure). Branch levETIRAcet 0 Yes [id number] 1000mg Take 10 mL [facility] am (KEPPRA) 2-01 by mouth ity of 100 mg/mL 00:00: in the [facility] 00 morning Medical solution and 10 mL Branch in the evening. midazolam 0 Yes [id number] 5mg Use 5 mg [facility] (NAYZILAM) 2-01 in each ity of 5 mg/spray 00:00: nostril as [place] (0.1 mL) 00 needed Medical [place] (seizure). Branch levETIRAcet 0 Yes [id number] 1000mg Take 10 mL [facility] am (KEPPRA) 2-01 by mouth ity of 100 mg/mL 00:00: in the [place] [address] morning Medical solution and 10 mL Branch in the evening. midazolam 0 Yes [id number] 5mg Use 5 mg [facility] (NAYZILAM) 2-01 in each ity of 5 mg/spray 00:00: nostril as [place] (0.1 mL) 00 needed Medical [place] (seizure). Branch midazolam 0 Yes [id number] 5mg Use 5 mg [facility] (NAYZILAM) 2-01 in each ity of 5 mg/spray 00:00: nostril as [place] (0.1 mL) 00 needed Medical [place] (seizure). Branch midazolam 0 Yes [id number] 5mg Use 5 mg [facility] (NAYZILAM) 2-01 in each ity of 5 mg/spray 00:00: nostril as [place] (0.1 mL) 00 needed Medical [place] (seizure). Branch midazolam 0 Yes [id number] 5mg Use 5 mg [facility] (NAYZILAM) 2-01 in each ity of 5 mg/spray 00:00: nostril as [place] (0.1 mL) 00 needed Medical [place] (seizure). Branch midazolam Yes [id number] 5mg Use 5 mg [facility] (NAYZILAM) 2-01 in each ity of 5 mg/spray 00:00: nostril as [place] (0.1 mL) 00 needed Medical [place] (seizure). Branch midazolam Yes [id number] 5mg Use 5 mg [facility] (NAYZILAM) 2-01 in each ity of 5 mg/spray 00:00: nostril as [place] (0.1 mL) 00 needed Medical [place] (seizure). Branch midazolam Yes [id number] 5mg Use 5 mg [facility] (NAYZILAM) 2-01 in each ity of 5 mg/spray 00:00: nostril as [place] (0.1 mL) 00 needed Medical [place] (seizure). Branch midazolam Yes [id number] 5mg Use 5 mg [facility] (NAYZILAM) 2-01 in each ity of 5 mg/spray 00:00: nostril as [place] (0.1 mL) 00 needed Medical [place] (seizure). Branch midazolam Yes [id number] 5mg Use 5 mg [facility] (NAYZILAM) 2-01 in each ity of 5 mg/spray 00:00: nostril as [place] (0.1 mL) 00 needed Medical [place] (seizure). Branch midazolam Yes [id number] 5mg Use 5 mg [facility] (NAYZILAM) 2-01 in each ity of 5 mg/spray 00:00: nostril as [place] (0.1 mL) 00 needed Medical [place] (seizure). Branch midazolam Yes [id number] 5mg Use 5 mg [facility] (NAYZILAM) 2-01 in each ity of 5 mg/spray 00:00: nostril as [place] (0.1 mL) 00 needed Medical [place] (seizure). Branch midazolam Yes [id number] 5mg Use 5 mg [facility] (NAYZILAM) 2-01 in each ity of 5 mg/spray 00:00: nostril as [place] (0.1 mL) 00 needed Medical [place] (seizure). Branch midazolam Yes [id number] 5mg Use 5 mg [facility] (NAYZILAM) 2-01 in each ity of 5 mg/spray 00:00: nostril as [place] (0.1 mL) 00 needed Medical [place] (seizure). Branch midazolam Yes [id number] 5mg Use 5 mg [facility] (NAYZILAM) 2-01 in each ity of 5 mg/spray 00:00: nostril as [place] (0.1 mL) 00 needed Medical [place] (seizure). Branch midazolam Yes [id number] 5mg Use 5 mg [facility] (NAYZILAM) 2-01 in each ity of 5 mg/spray 00:00: nostril as [place] (0.1 mL) 00 needed Medical [place] (seizure). Branch midazolam Yes [id number] 5mg Use 5 mg [facility] (NAYZILAM) 2- in each ity of 5 mg/spray 00:00: nostril as [place] (0.1 mL) 00 needed Medical [place] (seizure). Branch midazolam Yes [id number] 5mg Use 5 mg [facility] (NAYZILAM) 2-01 in each ity of 5 mg/spray 00:00: nostril as [place] (0.1 mL) 00 needed Medical [place] (seizure). Branch levETIRAcet 2022- No [id number] 1000mg Take 10 mL [facility] am (KEPPRA) 08-19 by mouth ity of 100 mg/mL 00:00: 00:00 in the [place] oral 00 :00 morning Medical solution and 10 mL Branch in the evening. SUMAtriptan 2022- No [id number] 20mg Use 1 [facility] 20 08-19 06-05 [place] in 1 ity of mg/actuatio 00:00: 00:00 nostril as [place] n nasal 00 :00 needed Medical spray (migraine) Branch . SUMAtriptan 2022- No [id number] 20mg Use 1 [facility] 20 - 06-05 [place] in 1 ity of mg/actuatio 00:00: 00:00 nostril as [place] n nasal 00 :00 needed Medical spray (migraine) Branch . SUMAtriptan 2022- No [id number] 20mg Use 08-19 [place] in 1 ity of mg/actuatio 00:00: 00:00 nostril as [place] n nasal 00 :00 needed Medical spray (migraine) Branch . cariprazine 0 Yes 1.5mg Take 1.5 U nivers (VRAYLAR) 1-31 mg by ity of 1.5 mg (1)- 10:52: mouth [place] 3 mg (6) 36 every Medical CpPk morning. Branch cariprazine 0 Yes 1.5mg Take 1.5 U nivers (VRAYLAR) 1-31 mg by ity of 1.5 mg (1)- 10:52: mouth [place] 3 mg (6) 36 every Medical CpPk morning. Branch cariprazine 0 Yes 1.5mg Take 1.5 U nivers (VRAYLAR) 1-31 mg by ity of 1.5 mg (1)- 10:52: mouth [place] 3 mg (6) 36 every Medical CpPk morning. Branch cariprazine 2022-0 Yes 1.5mg Take 1.5 U nivers (VRAYLAR) 1-31 mg by ity of 1.5 mg (1)- 10:52: mouth [place] 3 mg (6) 36 every Medical CpPk morning. Branch cariprazine 0 Yes 1.5mg Take 1.5 U nivers (VRAYLAR) 1-31 mg by ity of 1.5 mg (1)- 10:52: mouth [place] 3 mg (6) 36 every Medical CpPk morning. Branch cariprazine 0 Yes 1.5mg Take 1.5 U nivers (VRAYLAR) 1-31 mg by ity of 1.5 mg (1)- 10:52: mouth [place] 3 mg (6) 36 every Medical CpPk morning. Branch cariprazine 0 Yes 1.5mg Take 1.5 U nivers (VRAYLAR) [...] OR FOR WHEEZING/S HORTNESS OF BREATH. levalbutero 2022-0 Yes INHALE 2 Un [facility]en [facility] (XOPENEX [...] OF BREATH. levalbutero Yes INHALE 2 Un gl[facility] l (XOPENEX 1-31 PUFFS BY ity o [...] OR FOR WHEEZING/S HORTNESS OF BREATH. ciprofloxac 0 2023- No [id number] 500mg Take 10 mL [facility] in (CIPRO) 08-18 by mouth ity of 250 mg/5 mL 00:00: 05:59 every 12 [place] suspension 00 :00 (twelve) Medic al hours for Branch 5 days. ciprofloxac 2023-0 2023- No [id number] 500mg Take 10 mL [facility] in (CIPRO) 08-18 by mouth ity of 250 mg/5 mL 00:00: 05:59 every 12 [place] suspension 00 :00 (twelve) Medic al hours for Branch 5 days. ciprofloxac 2023-0 2023- No [id number] 500mg Take 10 mL [facility] in (CIPRO) 08-18 by mouth ity of 250 mg/5 mL 00:00: 05:59 every 12 [place] suspension 00 :00 (twelve) Medic al hours for Branch 5 days. ciprofloxac 3-0 3- No [id number] 500mg Take 10 mL [facility] in (CIPRO) 08-18 by mouth ity of 250 mg/5 mL 00:00: 05:59 every 12 [place] suspension 00 :00 (twelve) Medic al hours for Branch 5 days. ciprofloxac 3-0 3- No [id number] 500mg Take 10 mL [facility] in (CIPRO) 08-18 by mouth ity of 250 mg/5 mL 00:00: 05:59 every 12 [place] suspension 00 :00 (twelve) Medic al hours for Branch 5 days. ciprofloxac 2023-0 2023- No [id number] 500mg Take 10 mL [facility] in (CIPRO) 08-18 by mouth ity of 250 mg/5 mL 00:00: 05:59 every 12 [place] suspension 00 :00 (twelve) Medic al hours for Branch 5 days. ciprofloxac 2023-0 2023- No [id number] 500mg Take 10 mL [facility] in (CIPRO) 08-18 by mouth ity of 250 mg/5 mL 00:00: 05:59 every 12 [place] suspension 00 :00 (twelve) Medic al hours for Branch 5 days. ciprofloxac 2023-0 2023- No [id number] 500mg Take 10 mL [facility] in (CIPRO) 08-18-06 by mouth ity of 250 mg/5 mL 00:00: 05:59 every 12 [place] suspension 00 :00 (twelve) Medic al hours for Branch 5 days. dexamethaso 2022-0 3- No 12mg Take 120 U nivers ne 0.1 - 02-03 mL by ity of mg/mL LOW 00:00: 05:59 mouth in [place] as [facility] 00 :00 the Medical ON solution morning Branc h for 2 days. dexamethaso 2022-0 3- No 12mg Take 120 U nivers ne 0.1 08-18 02-03 mL by ity of mg/mL LOW 00:00: 05:59 mouth in [place] as [facility] 00 :00 the Medical ON solution morning Branc h for 2 days. dexamethaso 3-0 2023- No 12mg Take 120 U nivers ne 0.1 08-18 02-03 mL by ity of mg/mL LOW 00:00: 05:59 mouth in [place] as [facility] 00 :00 the Medical ON solution morning Branc h for 2 days. dexamethaso 3-0 3- No 12mg Take 120 U nivers ne 0.1 08-18 02-03 mL by ity of mg/mL LOW 00:00: 05:59 mouth in [place] as [facility] 00 :00 the Medical ON solution morning Branc h for 2 days. dexamethaso 3-0 2023- No 12mg Take 120 U nivers ne 0.1 08-18 02-03 mL by ity of mg/mL LOW 00:00: 05:59 mouth in [place] as [facility] 00 :00 the Medical ON solution morning Branc h for 2 days. dexamethaso 3-0 3- No 12mg Take 120 U nivers ne 0.1 08-18 02-03 mL by ity of mg/mL LOW 00:00: 05:59 mouth in [place] as [facility]AT[facility] 00 :00 the Medical ON solution morning Branc h for 2 days. benralizuma 3-0 Yes [id number] 30mg inject 1 [facility] b (FASENRA 1-24 Pen under ity of PEN) 30 00:00: the skin [place] mg/mL AtIn 00 every 8 Medica l (eight) Branch weeks. benralizuma 2023-0 Yes [id number] 30mg inject 1 [facility] b (FASENRA 1-24 Pen under ity of PEN) 30 00:00: the skin [place] mg/mL AtIn 00 every 8 Medica l (eight) Branch weeks. benralizuma 2023-0 Yes [id number] 30mg inject 1 [facility] b (FASENRA 1-24 Pen under ity of PEN) 30 00:00: the skin [place] mg/mL AtIn 00 every 8 Medica l (eight) Branch weeks. benralizuma 2023-0 Yes [id number] 30mg inject 1 [facility] b (FASENRA 1-24 Pen under ity of PEN) 30 00:00: the skin [place] mg/mL AtIn 00 every 8 Medica l (eight) Branch weeks. benralizuma 2023-0 Yes [id number] 30mg inject 1 [facility] b (FASENRA 1-24 Pen under ity of PEN) 30 00:00: the skin [place] mg/mL AtIn 00 every 8 Medica l (eight) Branch weeks. benralizuma 2023-0 Yes [id number] 30mg inject 1 [facility] b (FASENRA 1-24 Pen under ity of PEN) 30 00:00: the skin [place] mg/mL AtIn 00 every 8 Medica l (eight) Branch weeks. benralizuma 2023-0 Yes [id number] 30mg inject 1 [facility] b (FASENRA 1-24 Pen under ity of PEN) 30 00:00: the skin [place] mg/mL AtIn 00 every 8 Medica l (eight) Branch weeks. benralizuma 2023-0 Yes [id number] 30mg inject 1 [facility] b (FASENRA 1-24 Pen under ity of PEN) 30 00:00: the skin [place] mg/mL AtIn 00 every 8 Medica l (eight) Branch weeks. benralizuma 2023-0 Yes [id number] 30mg inject 1 [facility] b (FASENRA 1-24 Pen under ity of PEN) 30 00:00: the skin [place] mg/mL AtIn 00 every 8 Medica l (eight) Branch weeks. benralizuma 2023-0 Yes [id number] 30mg inject 1 [facility] b (FASENRA 1-24 Pen under ity of PEN) 30 00:00: the skin [place] mg/mL AtIn 00 every 8 Medica l (eight) Branch weeks. benralizuma 2023-0 Yes [id number] 30mg inject 1 [facility] b (FASENRA 1-24 Pen under ity of PEN) 30 00:00: the skin [place] mg/mL AtIn 00 every 8 Medica l (eight) Branch weeks. benralizuma 2023-0 Yes [id number] 30mg inject 1 [facility] (FASENRA 1-24 Pen under ity of PEN) 30 00:00: the skin [place] mg/mL AtIn 00 every 8 [facility] (eight) Branch weeks. benralizuma 2023-0 Yes [id number] 30mg inject 1 [facility] (FASENRA 1-24 Pen under ity of PEN) 30 00:00: the skin [place] mg/mL AtIn 00 every 8 [facility] (eight) Branch weeks. benralizuma 3-0 Yes [id number] 30mg inject 1 [facility] (FASENRA 1-24 Pen under ity of PEN) 30 00:00: the skin [place] mg/mL AtIn 00 every 8 [facility] (eight) Branch weeks. benralizuma 3-0 Yes [id number] 30mg inject 1 [facility] (FASENRA 1-24 Pen under ity of PEN) 30 00:00: the skin [place] mg/mL AtIn 00 every 8 [facility] (eight) Branch weeks. benralizuma 2023-0 Yes [id number] 30mg inject 1 [facility] ([facility]ASENRA 1-24 Pen under ity of PEN) 30 00:00: the skin [place] mg/mL AtIn 00 every 8 Medica l (eight) Branch weeks. benralizuma 2023-0 Yes [id number] 30mg inject 1 [facility] 1-24 Pen under it[facility] of PEN) 30 00:00: the skin [place] mg/mL AtIn 00 every 8 [facility] (eight) Branch weeks. benralizuma 2023-0 Yes [id number] 30mg inject 1 [facility] ([facility]RA 1-24 Pen under ity of PEN) 30 00:00: the skin [place] mg/mL AtIn 00 every 8 [facility] (eight) Branch weeks. benralizuma 2023-0 Yes [id number] 30mg inject 1 [facility] ([facility]ASENRA 1-24 Pen under ity of PEN) 30 00:00: the skin [place] mg/mL AtIn 00 every 8 [facility] (eight) Branch weeks. benralizuma 2023-0 Yes [id number] 30mg inject 1 [facility] ([facility]ASENRA 1-24 Pen under ity of PEN) 30 00:00: the skin [place] mg/mL AtIn 00 every 8 [facility] (eight) Branch weeks. benralizuma 2023-0 Yes [id number] 30mg inject 1 [facility] ([facility]ASENRA 1-24 Pen under ity of PEN) 30 00:00: the skin [place] mg/mL AtIn 00 every 8 [facility] (eight) Branch weeks. benralizuma 2023-0 Yes [id number] 30mg inject 1 [facility] ([facility]ASENRA 1-24 Pen under ity of PEN) 30 00:00: the skin [place] mg/mL AtIn 00 every 8 [facility] (eight) Branch weeks. benralizuma 3-0 Yes [id number] 30mg inject 1 [facility] (FASENRA 1-24 Pen under ity of PEN) 30 00:00: the skin [place] mg/mL AtIn 00 every 8 [facility] (eight) Branch weeks. benralizuma 2023-0 Yes [id number] 30mg inject 1 [facility] ([facility]ASENRA 1-24 Pen under ity of PEN) 30 00:00: the skin [place] mg/mL AtIn 00 every 8 [facility] (eight) Branch weeks. benralizuma 2023-0 Yes [id number] 30mg inject 1 [facility] ([facility]ASENRA 1-24 Pen under ity of PEN) 30 00:00: the skin [place] mg/mL AtIn 00 every 8 [facility] (eight) Branch weeks. benralizuma 2023-0 Yes [id number] 30mg inject 1 [facility] ([facility]ASENRA 1-24 Pen under ity of PEN) 30 00:00: the skin [place] mg/mL AtIn 00 every 8 [facility] (eight) Branch weeks. benralizuma 2023-0 Yes [id number] 30mg inject 1 [facility] ([facility]ASENRA 1-24 Pen under ity of PEN) 30 00:00: the skin [place] mg/mL AtIn 00 every 8 [facility] (eight) Branch weeks. benralizuma 2023-0 Yes [id number] 30mg inject 1 [facility] (FASENRA 1-24 Pen under ity of PEN) 30 00:00: the skin [place] mg/mL AtIn 00 every 8 [facility] (eight) Branch weeks. benralizuma 2023-0 Yes [id number] 30mg inject 1 [facility] (FASENRA 1-24 Pen under ity of PEN) 30 00:00: the skin [place] mg/mL AtIn 00 every 8 [facility] (eight) Branch weeks. benralizuma 2023-0 Yes [id number] 30mg inject 1 [facility] ([facility]ASENRA 1-24 Pen under ity of PEN) 30 00:00: the skin [place] mg/mL AtIn 00 every 8 [facility] (eight) Branch weeks. benralizuma 2023-0 Yes [id number] 30mg inject 1 [facility] (FASENRA 1-24 Pen under ity of PEN) 30 00:00: the skin [place] mg/mL AtIn 00 every 8 [facility] (eight) Branch weeks. benralizuma 2023-0 Yes [id number] 30mg inject 1 [facility] (FASENRA 1-24 Pen under ity of PEN) 30 00:00: the skin [place] mg/mL AtIn 00 every 8 [facility] (eight) Branch weeks. benralizuma 2023-0 Yes [id number] 30mg inject 1 [facility] ([facility]ASENRA 1-24 Pen under ity of PEN) 30 00:00: the skin [place] mg/mL AtIn 00 every 8 [facility] (eight) Branch weeks. benralizuma 2023-0 Yes [id number] 30mg inject 1 [facility] ([facility]ASENRA 1-24 Pen under ity of PEN) 30 00:00: the skin [place] mg/mL AtIn 00 every 8 [facility] (eight) Branch weeks. benralizuma 2023-0 Yes [id number] 30mg inject 1 [facility] (FASENRA 1-24 Pen under ity of PEN) 30 00:00: the skin [place] mg/mL AtIn 00 every 8 [facility] (eight) Branch weeks. benralizuma 2023-0 Yes [id number] 30mg inject 1 [facility] (FASENRA 1-24 Pen under ity of PEN) 30 00:00: the skin [place] mg/mL AtIn 00 every 8 [facility] (eight) Branch weeks. benralizuma 2023-0 Yes [id number] 30mg inject 1 [facility] (FASENRA 1-24 Pen under ity of PEN) 30 00:00: the skin [place] mg/mL AtIn 00 every 8 [facility] (eight) Branch weeks. benralizuma 3-0 Yes [id number] 30mg inject 1 [facility] (FASENRA 1-24 Pen under ity of PEN) 30 00:00: the skin [place] mg/mL AtIn 00 every 8 [facility] (eight) Branch weeks. benralizuma 3-0 Yes [id number] 30mg inject 1 [facility] (FASENRA 1-24 Pen under ity of PEN) 30 00:00: the skin [place] mg/mL AtIn 00 every 8 [facility] (eight) Branch weeks. benralizuma 3-0 Yes [id number] 30mg inject 1 [facility] (FASENRA 1-24 Pen under ity of PEN) 30 00:00: the skin [place] mg/mL AtIn 00 every 8 [facility] (eight) Branch weeks. benralizuma 3-0 Yes [id number] 30mg inject 1 [facility] (FASENRA 1-24 Pen under ity of PEN) 30 00:00: the skin [place] mg/mL AtIn 00 every 8 [facility] (eight) Branch weeks. benralizuma 3-0 Yes [id number] 30mg inject 1 [facility] (FASENRA 1-24 Pen under ity of PEN) 30 00:00: the skin [place] mg/mL AtIn 00 every 8 [facility] (eight) Branch weeks. benralizuma 2023-0 Yes [id number] 30mg inject 1 [facility] (FASENRA 1-24 Pen under ity of PEN) 30 00:00: the skin [place] mg/mL AtIn 00 every 8 [facility] (eight) Branch weeks. benralizuma 2023-0 Yes [id number] 30mg inject 1 [facility] (FASENRA 1-24 Pen under ity of PEN) 30 00:00: the skin [place] mg/mL AtIn 00 every 8 [facility] (eight) Branch weeks. benralizuma 2023-0 Yes [id number] 30mg inject 1 [facility] (FASENRA 1-24 Pen under ity of PEN) 30 00:00: the skin [place] mg/mL AtIn 00 every 8 [facility] (eight) Branch weeks. benralizuma 2023-0 Yes [id number] 30mg inject 1 [facility] (FASENRA 1-24 Pen under ity of PEN) 30 00:00: the skin [place] mg/mL AtIn 00 every 8 [facility] (eight) Branch weeks. benralizuma 2023-0 Yes [id number] 30mg inject 1 [facility] (FASENRA 1-24 Pen under ity of PEN) 30 00:00: the skin [place] mg/mL AtIn 00 every 8 [facility] (eight) Branch weeks. benralizuma 2023-0 Yes [id number] 30mg inject 1 [facility] (FASENRA 1-24 Pen under ity of PEN) 30 00:00: the skin [place] mg/mL AtIn 00 every 8 [facility] (eight) Branch weeks. benralizuma 2023-0 Yes [id number] 30mg inject 1 [facility] (FASENRA 1-24 Pen under ity of PEN) 30 00:00: the skin [place] mg/mL AtIn 00 every 8 [facility] (eight) Branch weeks. benralizuma 2023-0 Yes [id number] 30mg inject 1 [facility] (FASENRA 1-24 Pen under ity of PEN) 30 00:00: the skin [place] mg/mL AtIn 00 every 8 [facility] (eight) Branch weeks. benralizuma 2023-0 Yes [id number] 30mg inject 1 [facility] (FASENRA 1-24 Pen under ity of PEN) 30 00:00: the skin [place] mg/mL AtIn 00 every 8 [facility] (eight) Branch weeks. benralizuma 2023-0 Yes [id number] 30mg inject 1 [facility] (FASENRA 1-24 Pen under ity of PEN) 30 00:00: the skin [place] mg/mL AtIn 00 every 8 [facility] (eight) Branch weeks. benralizuma 2023-0 Yes [id number] 30mg inject 1 [facility] (FASENRA 1-24 Pen under ity of PEN) 30 00:00: the skin [place] mg/mL AtIn 00 every 8 [facility] (eight) Branch weeks. benralizuma 2023-0 Yes [id number] 30mg inject 1 [facility] (FASENRA 1-24 Pen under ity of PEN) 30 00:00: the skin [place] mg/mL AtIn 00 every 8 [facility] (eight) Branch weeks. benralizuma 2023-0 Yes [id number] 30mg inject 1 [facility] (FASENRA 1-24 Pen under ity of PEN) 30 00:00: the skin [place] mg/mL AtIn 00 every 8 [facility] (eight) Branch weeks. benralizuma 2023-0 Yes [id number] 30mg inject 1 [facility] (FASENRA 1-24 Pen under ity of PEN) 30 00:00: the skin [place] mg/mL AtIn 00 every 8 [facility] (eight) Branch weeks. benralizuma 2023-0 Yes [id number] 30mg inject 1 [facility] (FASENRA 1-24 Pen under ity of PEN) 30 00:00: the skin [place] mg/mL AtIn 00 every 8 [facility] (eight) Branch weeks. benralizuma 2023-0 Yes [id number] 30mg inject 1 [facility] (FASENRA 1-24 Pen under ity of PEN) 30 00:00: the skin [place] mg/mL AtIn 00 every 8 [facility] (eight) Branch weeks. benralizuma 2023-0 Yes [id number] 30mg inject 1 [facility] (FASENRA 1-24 Pen under ity of PEN) 30 00:00: the skin [place] mg/mL AtIn 00 every 8 [facility] (eight) Branch weeks. benralizuma 2023-0 Yes [id number] 30mg inject 1 [facility] (FASENRA 1-24 Pen under ity of PEN) 30 00:00: the skin [place] mg/mL AtIn 00 every 8 [facility] (eight) Branch weeks. benralizuma 2023-0 Yes [id number] 30mg inject 1 [facility] (FASENRA 1-24 Pen under ity of PEN) 30 00:00: the skin [place] mg/mL AtIn 00 every 8 [facility] (eight) Branch weeks. benralizuma 2023-0 Yes [id number] 30mg inject 1 [facility] (FASENRA 1-24 Pen under ity of PEN) 30 00:00: the skin [place] mg/mL AtIn 00 every 8 [facility] (eight) Branch weeks. benralizuma 3-0 Yes [id number] 30mg inject 1 [facility] (FASENRA 1-24 Pen under ity of PEN) 30 00:00: the skin [place] mg/mL AtIn 00 every 8 [facility] (eight) Branch weeks. benralizuma 3-0 Yes [id number] 30mg inject 1 [facility] (FASENRA 1-24 Pen under ity of PEN) 30 00:00: the skin [place] mg/mL AtIn 00 every 8 [facility] (eight) Branch weeks. benralizuma 3-0 Yes [id number] 30mg inject 1 [facility] (FASENRA 1-24 Pen under ity of PEN) 30 00:00: the skin [place] mg/mL AtIn 00 every 8 [facility] (eight) Branch weeks. benralizuma 3-0 Yes [id number] 30mg inject 1 [facility] (FASENRA 1-24 Pen under ity of PEN) 30 00:00: the skin [place] mg/mL AtIn 00 every 8 [facility] (eight) Branch weeks. benralizuma 3-0 Yes [id number] 30mg inject 1 [facility] (FASENRA 1-24 Pen under ity of PEN) 30 00:00: the skin [place] mg/mL AtIn 00 every 8 [facility] (eight) Branch weeks. benralizuma 3-0 Yes [id number] 30mg inject 1 [facility] (FASENRA 1-24 Pen under ity of PEN) 30 00:00: the skin [place] mg/mL AtIn 00 every 8 [facility] (eight) Branch weeks. benralizuma 2023-0 Yes [id number] 30mg inject 1 [facility] (FASENRA 1-24 Pen under ity of PEN) 30 00:00: the skin [place] mg/mL AtIn 00 every 8 [facility] (eight) Branch weeks. benralizuma 2023-0 Yes [id number] 30mg inject 1 [facility] (FASENRA 1-24 Pen under ity of PEN) 30 00:00: the skin [place] mg/mL AtIn 00 every 8 Med[facility] (eight) Branch weeks. benralizuma 2023-0 Yes [id number] 30mg inject 1 [facility] (FASENRA 1-24 Pen under ity of PEN) 30 00:00: the skin [place] mg/mL AtIn 00 every 8 [facility] (eight) Branch weeks. benralizuma 2023-0 Yes [id number] 30mg inject 1 [facility] (FASENRA 1-24 Pen under ity of PEN) 30 00:00: the skin [place] mg/mL AtIn 00 every 8 [facility] (eight) Branch weeks. benralizuma 2023-0 Yes [id number] 30mg inject 1 [facility] (FASENRA 1-24 Pen under ity of PEN) 30 00:00: the skin [place] mg/mL AtIn 00 every 8 [facility] (eight) Branch weeks. benralizuma 2023-0 Yes [id number] 30mg inject 1 [facility] (FASENRA 1-24 Pen under ity of PEN) 30 00:00: the skin [place] mg/mL AtIn 00 every 8 [facility] (eight) Branch weeks. benralizuma 2023-0 Yes [id number] 30mg inject 1 [facility] (FASENRA 1-24 Pen under ity of PEN) 30 00:00: the skin [place] mg/mL AtIn 00 every 8 [facility] (eight) Branch weeks. benralizuma 2023-0 Yes [id number] 30mg inject 1 [facility] (FASENRA 1-24 Pen under ity of PEN) 30 00:00: the skin [place] mg/mL AtIn 00 every 8 [facility] (eight) Branch weeks. benralizuma 2023-0 Yes [id number] 30mg inject 1 [facility] (FASENRA 1-24 Pen under ity of PEN) 30 00:00: the skin [place] mg/mL AtIn 00 every 8 [facility] (eight) Branch weeks. benralizuma 2023-0 Yes [id number] 30mg inject 1 [facility] (FASENRA 1-24 Pen under ity of PEN) 30 00:00: the skin [place] mg/mL AtIn 00 every 8 [facility] (eight) Branch weeks. benralizuma 2023-0 Yes [id number] 30mg inject 1 [facility] (FASENRA 1-24 Pen under ity of PEN) 30 00:00: the skin [place] mg/mL AtIn 00 every 8 [facility] (eight) Branch weeks. benralizuma 2023-0 Yes [id number] 30mg inject 1 [facility] (FASENRA 1-24 Pen under ity of PEN) 30 00:00: the skin [place] mg/mL AtIn 00 every 8 Med[facility] (eight) Branch weeks. benralizuma 2023-0 Yes [id number] 30mg inject 1 [facility] (FASENRA 1-24 Pen under ity of PEN) 30 00:00: the skin [place] mg/mL AtIn 00 every 8 [facility] (eight) Branch weeks. benralizuma 2023-0 Yes [id number] 30mg inject 1 [facility] (FASENRA 1-24 Pen under ity of PEN) 30 00:00: the skin [place] mg/mL AtIn 00 every 8 [facility] (eight) Branch weeks. benralizuma 3-0 Yes [id number] 30mg inject 1 [facility] (FASENRA 1-24 Pen under ity of PEN) 30 00:00: the skin [place] mg/mL AtIn 00 every 8 [facility] (eight) Branch weeks. benralizuma 3-0 Yes [id number] 30mg inject 1 [facility] (FASENRA 1-24 Pen under ity of PEN) 30 00:00: the skin [place] mg/mL AtIn 00 every 8 [facility] (eight) Branch weeks. benralizuma 3-0 Yes [id number] 30mg inject 1 [facility] (FASENRA 1-24 Pen under ity of PEN) 30 00:00: the skin [place] mg/mL AtIn 00 every 8 [facility] (eight) Branch weeks. benralizuma 2023-0 Yes [id number] 30mg inject 1 [facility] (FASENRA 1-24 Pen under ity of PEN) 30 00:00: the skin [place] mg/mL AtIn 00 every 8 [facility] (eight) Branch weeks. benralizuma 2023-0 Yes [id number] 30mg inject 1 [facility] (FASENRA 1-24 Pen under ity of PEN) 30 00:00: the skin [place] mg/mL AtIn 00 every 8 Med[facility] (eight) Branch weeks. benralizuma 2023-0 Yes [id number] 30mg inject 1 [facility] (FASENRA 1-24 Pen under ity of PEN) 30 00:00: the skin [place] mg/mL AtIn 00 every 8 Med[facility] (eight) Branch weeks. benralizuma 2023-0 Yes [id number] 30mg inject 1 [facility] (FASENRA 1-24 Pen under ity of PEN) 30 00:00: the skin [place] mg/mL AtIn 00 every 8 Med[facility] (eight) Branch weeks. benralizuma 2023-0 Yes [id number] 30mg inject 1 [facility] (FASENRA 1-24 Pen under ity of PEN) 30 00:00: the skin [place] mg/mL AtIn 00 every 8 Med[facility] (eight) Branch weeks. benralizuma 2023-0 Yes [id number] 30mg inject 1 [facility] (FASENRA 1-24 Pen under ity of PEN) 30 00:00: the skin [place] mg/mL AtIn 00 every 8 [facility] (eight) Branch weeks. benralizuma 3-0 Yes [id number] 30mg inject 1 [facility] (FASENRA 1-24 Pen under ity of PEN) 30 00:00: the skin [place] mg/mL AtIn 00 every 8 Med[facility] (eight) Branch weeks. benralizuma 3-0 Yes [id number] 30mg inject 1 [facility] (FASENRA 1-24 Pen under ity of PEN) 30 00:00: the skin [place] mg/mL AtIn 00 every 8 [facility] (eight) Branch weeks. benralizuma 2023-0 Yes [id number] 30mg inject 1 [facility] (FASENRA 1-24 Pen under ity of PEN) 30 00:00: the skin [place] mg/mL AtIn 00 every 8 Med[facility] (eight) Branch weeks. benralizuma 2023-0 Yes [id number] 30mg inject 1 [facility] (FASENRA 1-24 Pen under ity of PEN) 30 00:00: the skin [place] mg/mL AtIn 00 every 8 [facility] (eight) Branch weeks. benralizuma 2023-0 Yes [id number] 30mg inject 1 [facility] (FASENRA 1-24 Pen under ity of PEN) 30 00:00: the skin [place] mg/mL AtIn 00 every 8 Med[facility] (eight) Branch weeks. benralizuma 2023-0 Yes [id number] 30mg inject 1 [facility] (FASENRA 1-24 Pen under ity of PEN) 30 00:00: the skin [place] mg/mL AtIn 00 every 8 [facility] (eight) Branch weeks. benralizuma 2023-0 Yes [id number] 30mg inject 1 [facility] (FASENRA 1-24 Pen under ity of PEN) 30 00:00: the skin [place] mg/mL AtIn 00 every 8 [facility] (eight) Branch weeks. benralizuma 2023-0 Yes [id number] 30mg inject 1 [facility] (FASENRA 1-24 Pen under ity of PEN) 30 00:00: the skin [place] mg/mL AtIn 00 every 8 [facility] (eight) Branch weeks. benralizuma 2023-0 Yes [id number] 30mg inject 1 [facility] (FASENRA 1-24 Pen under ity of PEN) 30 00:00: the skin [place] mg/mL AtIn 00 every 8 Med[facility] (eight) Branch weeks. benralizuma 2023-0 Yes [id number] 30mg inject 1 [facility] (FASENRA 1-24 Pen under ity of PEN) 30 00:00: the skin [place] mg/mL AtIn 00 every 8 Med[facility] (eight) Branch weeks. benralizuma 2023-0 Yes [id number] 30mg inject 1 [facility] (FASENRA 1-24 Pen under ity of PEN) 30 00:00: the skin [place] mg/mL AtIn 00 every 8 Med[facility] (eight) Branch weeks. benralizuma 2023-0 Yes [id number] 30mg inject 1 [facility] (FASENRA 1-24 Pen under ity of PEN) 30 00:00: the skin [place] mg/mL AtIn 00 every 8 Med[facility] (eight) Branch weeks. benralizuma 2023-0 Yes [id number] 30mg inject 1 [facility] (FASENRA 1-24 Pen under ity of PEN) 30 00:00: the skin [place] mg/mL AtIn 00 every 8 Med[facility] (eight) Branch weeks. benralizuma 2023-0 Yes [id number] 30mg inject 1 [facility] (FASENRA 1-24 Pen under ity of PEN) 30 00:00: the skin [place] mg/mL AtIn 00 every 8 [facility] (eight) Branch weeks. benralizuma 3-0 Yes [id number] 30mg inject 1 [facility] (FASENRA 1-24 Pen under ity of PEN) 30 00:00: the skin [place] mg/mL AtIn 00 every 8 [facility] (eight) Branch weeks. benralizuma 3-0 Yes [id number] 30mg inject 1 [facility] (FASENRA 1-24 Pen under ity of PEN) 30 00:00: the skin [place] mg/mL AtIn 00 every 8 Med[facility] (eight) Branch weeks. benralizuma 3-0 Yes [id number] 30mg inject 1 [facility] (FASENRA 1-24 Pen under ity of PEN) 30 00:00: the skin [place] mg/mL AtIn 00 every 8 [facility] (eight) Branch weeks. benralizuma 3-0 Yes [id number] 30mg inject 1 [facility] (FASENRA 1-24 Pen under ity of PEN) 30 00:00: the skin [place] mg/mL AtIn 00 every 8 [facility] (eight) Branch weeks. benralizuma 3-0 Yes [id number] 30mg inject 1 [facility] (FASENRA 1-24 Pen under ity of PEN) 30 00:00: the skin [place] mg/mL AtIn 00 every 8 [facility] (eight) Branch weeks. benralizuma 3-0 Yes [id number] 30mg inject 1 [facility] (FASENRA 1-24 Pen under ity of PEN) 30 00:00: the skin [place] mg/mL AtIn 00 every 8 [facility] (eight) Branch weeks. benralizuma 2023-0 Yes [id number] 30mg inject 1 [facility] (FASENRA 1-24 Pen under ity of PEN) 30 00:00: the skin [place] mg/mL AtIn 00 every 8 [facility] (eight) Branch weeks. benralizuma 2023-0 Yes [id number] 30mg inject 1 [facility] (FASENRA 1-24 Pen under ity of PEN) 30 00:00: the skin [place] mg/mL AtIn 00 every 8 [facility] (eight) Branch weeks. benralizuma 2023-0 Yes [id number] 30mg inject 1 [facility] (FASENRA 1-24 Pen under ity of PEN) 30 00:00: the skin [place] mg/mL AtIn 00 every 8 [facility] (eight) Branch weeks. benralizuma 2023-0 Yes [id number] 30mg inject 1 [facility] (FASENRA 1-24 Pen under ity of PEN) 30 00:00: the skin [place] mg/mL AtIn 00 every 8 [facility] (eight) Branch weeks. benralizuma 3-0 Yes [id number] 30mg inject 1 [facility] (FASENRA 1-24 Pen under ity of PEN) 30 00:00: the skin [place] mg/mL AtIn 00 every 8 [facility] (eight) Branch weeks. benralizuma 3-0 Yes [id number] 30mg inject 1 [facility] (FASENRA 1-24 Pen under ity of PEN) 30 00:00: the skin [place] mg/mL AtIn 00 every 8 [facility] (eight) Branch weeks. benralizuma 3-0 Yes [id number] 30mg inject 1 [facility] (FASENRA 1-24 Pen under ity of PEN) 30 00:00: the skin [place] mg/mL AtIn 00 every 8 [facility] (eight) Branch weeks. benralizuma 3-0 Yes [id number] 30mg inject 1 [facility] (FASENRA 1-24 Pen under ity of PEN) 30 00:00: the skin [place] mg/mL AtIn 00 every 8 Medica l (eight) Branch weeks. VRAYLAR 3 2022-0 Yes 3mg Take 3 mg [facility] mg Cap 1-07 by mouth ity of 00:00: at [place] 00 bedtime. [facility] VRAYLAR 3 2022-0 Yes 3mg Take 3 mg [facility] mg Cap 1-07 by mouth ity of 00:00: at [place] 00 bedtime. [facility] VRAYLAR 3 2022-0 Yes 3mg Take 3 mg [facility] mg Cap 1-07 by mouth ity of 00:00: at [place] 00 bedtime. [facility] VRAYLAR 3 2022-0 Yes 3mg Take 3 mg [facility] mg Cap 1-07 by mouth ity of 00:00: at [place] [address] bedtime. [facility] Branch VRAYLAR 3 0 Yes 3mg Take 3 mg [facility] mg Cap 1-07 by mouth ity of 00:00: at [place] [address] bedtime. [facility] VRAYLAR 3 0 Yes 3mg Take 3 mg [facility] mg Cap 1-07 by mouth ity of 00:00: at [place] [address] bedtime. [facility] Branch VRAYLAR 3 2022-0 Yes 3mg Take 3 mg [facility] mg Cap 1-07 by mouth ity of 00:00: at [place] [address] bedtime. [facility] VRAYLAR 3 0 Yes 3mg Take 3 mg [facility] mg Cap 1-07 by mouth ity of 00:00: at [place] [address] bedtime. [facility] VRAYLAR 3 0 Yes 3mg Take 3 mg [facility] mg Cap 1-07 by mouth ity of 00:00: at [place] [address] bedtime. [facility] VRAYLAR 3 0 Yes 3mg Take 3 mg [facility] mg Cap 1-07 by mouth ity of 00:00: at [place] [address] bedtime. [facility] VRAYLAR 3 0 Yes 3mg Take 3 mg [facility] mg Cap 1-07 by mouth ity of 00:00: at [place] [address] bedtime. [facility] Branch VRAYLAR 3 0 Yes 3mg Take 3 mg [facility] mg Cap 1-07 by mouth ity of 00:00: at [place] [address] bedtime. [facility] Branch VRAYLAR 3 0 Yes 3mg Take 3 mg [facility] mg Cap 1-07 by mouth ity of 00:00: at [place] [address] bedtime. [facility] Branch VRAYLAR 3 0 Yes 3mg Take 3 mg [facility] mg Cap 1-07 by mouth ity of 00:00: at [place] [address] bedtime. [facility] Branch VRAYLAR 3 0 Yes 3mg Take 3 mg [facility] mg Cap 1-07 by mouth ity of 00:00: at [place] [address] bedtime. [facility] Branch VRAYLAR 3 0 Yes 3mg Take 3 mg [facility] mg Cap 1-07 by mouth ity of 00:00: at [place] [address] bedtime. [facility] Branch VRAYLAR 3 0 Yes 3mg Take 3 mg [facility] mg Cap 1-07 by mouth ity of 00:00: at [place] [address] bedtime. [facility] VRAYLAR 3 0 Yes 3mg Take 3 mg [facility] mg Cap 1-07 by mouth ity of 00:00: at [place] [address] bedtime. [facility] Branch VRAYLAR 3 0 Yes 3mg Take 3 mg [facility] mg Cap 1-07 by mouth ity of 00:00: at [place] [address] bedtime. [facility] Branch VRAYLAR 3 0 Yes 3mg Take 3 mg [facility] mg Cap 1-07 by mouth ity of 00:00: at [place] [address] bedtime. [facility] VRAYLAR 3 0 Yes 3mg Take 3 mg [facility] mg Cap 1-07 by mouth ity of 00:00: at [place] [address] bedtime. [facility] Branch VRAYLAR 3 Yes 3mg Take 3 mg [facility] mg Cap 1-07 by mouth ity of 00:00: at [place] [address] bedtime. [facility] Branch VRAYLAR 3 0 Yes 3mg Take 3 mg [facility] mg Cap 1-07 by mouth ity of 00:00: at [place] [address] bedtime. [facility] VRAYLAR 3 0 Yes 3mg Take 3 mg [facility] mg Cap 1-07 by mouth ity of 00:00: at [place] [address] bedtime. [facility] Branch VRAYLAR 3 Yes 3mg Take 3 mg [facility] mg Cap 1-07 by mouth ity of 00:00: at [place] [address] bedtime. [facility] Branch VRAYLAR 3 0 Yes 3mg Take 3 mg [facility] mg Cap 1-07 by mouth ity of 00:00: at [place] [address] bedtime. [facility] VRAYLAR 3 Yes 3mg Take 3 mg [facility] mg Cap 1-07 by mouth ity of 00:00: at [place] [address] bedtime. [facility] Branch VRAYLAR 3 0 Yes 3mg Take 3 mg [facility] mg Cap 1-07 by mouth ity of 00:00: at [place] [address] bedtime. [facility] Branch VRAYLAR 3 0 Yes 3mg Take 3 mg [facility] mg Cap 1-07 by mouth ity of 00:00: at [place] [address] bedtime. [facility] Branch VRAYLAR 3 0 Yes 3mg Take 3 mg [facility] mg Cap 1-07 by mouth ity of 00:00: at [place] [address] bedtime. [facility] Branch VRAYLAR 3 Yes 3mg Take 3 mg [facility] mg Cap 1-07 by mouth ity of 00:00: at [place] [address] bedtime. [facility] Branch VRAYLAR 3 Yes 3mg Take 3 mg [facility] mg Cap 1-07 by mouth ity of 00:00: at [place] [address] bedtime. [facility] Branch VRAYLAR 3 Yes 3mg Take 3 mg [facility] mg Cap 1-07 by mouth ity of 00:00: at [place] [address] bedtime. [facility] Branch VRAYLAR 3 Yes 3mg Take 3 mg [facility] mg Cap 1-07 by mouth ity of 00:00: at [place] [address] bedtime. [facility] VRAYLAR 3 Yes 3mg Take 3 mg [facility] mg Cap 1-07 by mouth ity of 00:00: at [place] [address] bedtime. [facility] Branch VRAYLAR 3 Yes 3mg Take 3 mg [facility] mg Cap 1-07 by mouth ity of 00:00: at [place] [address] bedtime. [facility] Branch VRAYLAR 3 Yes 3mg Take 3 mg [facility] mg Cap 1-07 by mouth ity of 00:00: at [place] [address] bedtime. [facility] Branch VRAYLAR 3 Yes 3mg Take 3 mg [facility] mg Cap 1-07 by mouth ity of 00:00: at [place] [address] bedtime. [facility] Branch VRAYLAR 3 0 Yes 3mg Take 3 mg [facility] mg Cap 1-07 by mouth ity of 00:00: at [place] [address] bedtime. [facility] Branch VRAYLAR 3 0 Yes 3mg Take 3 mg [facility] mg Cap 1-07 by mouth ity of 00:00: at [place] [address] bedtime. [facility] Branch VRAYLAR 3 0 Yes 3mg Take 3 mg [facility] mg Cap 1-07 by mouth ity of 00:00: at [place] [address] bedtime. [facility] Branch VRAYLAR 3 0 Yes 3mg Take 3 mg [facility] mg Cap 1-07 by mouth ity of 00:00: at [place] [address] bedtime. [facility] Branch VRAYLAR 3 2023-0 Yes 3mg Take 3 mg [facility] mg Cap 1-07 by mouth ity of 00:00: at [place] [address] bedtime. [facility] Branch VRAYLAR 3 Yes 3mg Take 3 mg [facility] mg Cap 1-07 by mouth ity of 00:00: at [place] [address] bedtime. [facility] Branch VRAYLAR 3 0 Yes 3mg Take 3 mg [facility] mg Cap 1-07 by mouth ity of 00:00: at [place] [address] bedtime. [facility] Branch VRAYLAR 3 0 Yes 3mg Take 3 mg [facility] mg Cap 1-07 by mouth ity of 00:00: at [place] [address] bedtime. [facility] Branch VRAYLAR 3 Yes 3mg Take 3 mg [facility] mg Cap 1-07 by mouth ity of 00:00: at [place] [address] bedtime. [facility] Branch VRAYLAR 3 Yes 3mg Take 3 mg [facility] vers mg Cap 1-07 by mouth ity of 00:00: at [place] [address] bedtime. [facility] VRAYLAR 3 Yes 3mg Take 3 mg [facility] vers mg Cap 1-07 by mouth ity of 00:00: at [place] [address] bedtime. [facility] VRAYLAR 3 Yes 3mg Take 3 mg [facility] vers mg Cap 1-07 by mouth ity of 00:00: at [place] [address] bedtime. [facility] VRAYLAR 3 Yes 3mg Take 3 mg [facility] vers mg Cap 1-07 by mouth ity of 00:00: at [place] [address] bedtime. [facility] VRAYLAR 3 Yes 3mg Take 3 mg [facility] vers mg Cap 1-07 by mouth ity of 00:00: at [place] [address] bedtime. [facility] VRAYLAR 3 Yes 3mg Take 3 mg [facility] mg Cap 1-07 by mouth ity of 00:00: at [place] [address] bedtime. Medical Branch VRAYLAR 3 0 Yes 3mg Take 3 mg [facility] mg Cap 1-07 by mouth ity of 00:00: at [place] [address] bedtime. Medical Branch VRAYLAR 3 0 Yes 3mg Take 3 mg [facility] mg Cap 1-07 by mouth ity of 00:00: at [place] [address] bedtime. Medical Branch VRAYLAR 3 0 Yes 3mg Take 3 mg [facility] mg Cap 1-07 by mouth ity of 00:00: at [place] [address] bedtime. Medical Branch VRAYLAR 3 0 Yes 3mg Take 3 mg [facility] mg Cap 1-07 by mouth ity of 00:00: at [place] [address] bedtime. Medical Branch VRAYLAR 3 0 Yes 3mg Take 3 mg [facility] mg Cap 1-07 by mouth ity of 00:00: at [place] [address] bedtime. Medical Branch VRAYLAR 3 0 Yes 3mg Take 3 mg [facility] mg Cap 1-07 by mouth ity of 00:00: at [place] [address] bedtime. Medical Branch VRAYLAR 3 0 Yes 3mg Take 3 mg [facility] mg Cap 1-07 by mouth ity of 00:00: at [place] [address] bedtime. Medical Branch VRAYLAR 3 Yes 3mg Take 3 mg [facility] mg Cap 1-07 by mouth ity of 00:00: at [place] [address] bedtime. Medical Branch VRAYLAR 3 0 Yes 3mg Take 3 mg [facility] mg Cap 1-07 by mouth ity of 00:00: at [place] [address] bedtime. Medical Branch VRAYLAR 3 0 Yes 3mg Take 3 mg [facility] mg Cap 1-07 by mouth ity of 00:00: at [place] [address] bedtime. Medical Branch VRAYLAR 3 Yes 3mg Take 3 mg [facility] mg Cap 1-07 by mouth ity of 00:00: at [place] [address] bedtime. Medical Branch VRAYLAR 3 0 Yes 3mg Take 3 mg [facility] mg Cap 1-07 by mouth ity of 00:00: at [place] [address] bedtime. Medical Branch VRAYLAR 3 0 Yes 3mg Take 3 mg [facility] mg Cap 1-07 by mouth ity of 00:00: at [place] [address] bedtime. Medical Branch VRAYLAR 3 0 Yes 3mg Take 3 mg [facility] mg Cap 1-07 by mouth ity of 00:00: at [place] [address] bedtime. Medical Branch VRAYLAR 3 0 Yes 3mg Take 3 mg [facility] mg Cap 1-07 by mouth ity of 00:00: at [place] [address] bedtime. Medical Branch VRAYLAR 3 2022-0 Yes 3mg Take 3 mg [facility] mg Cap 1-07 by mouth ity of 00:00: at [place] 00 bedtime. Medical Branch VRAYLAR 3 2022-0 Yes 3mg Take 3 mg [facility] mg Cap 1-07 by mouth ity of 00:00: at [place] [address] bedtime. Medical Branch VRAYLAR 3 2022-0 Yes 3mg Take 3 mg [facility] mg Cap 1-07 by mouth ity of 00:00: at [place] [address] bedtime. Medical Branch VRAYLAR 3 2022-0 2022- No 3mg Take 3 mg [place] mg Cap 07-25-05 by mouth ity of 00:00: 00:00 at [place] 00 :00 bedtime. Medical Branch VRAYLAR 3 2022-0 2022- No 3mg Take 3 mg [place] mg Cap 07-25-05 by mouth ity of 00:00: 00:00 at [place] 00 :00 bedtime. Medical Branch VRAYLAR 3 2022-0 2022- No 3mg Take 3 mg [place] mg Cap 07-25-05 by mouth ity of 00:00: 00:00 at [place] 00 :00 bedtime. Medical Branch levalbutero 2021-07 Yes [id number] INHALE 2 [facility] l (XOPENEX 2-29 PUFFS BY ity o f HFA) 45 00:00: MOUTH [place] mcg/actuati 00 EVERY 6 Medic al on inhaler HOURS Branc h NEEDED BEFORE EXERCISE OR FOR WHEEZING/S HORTNESS OF BREATH. levalbutero 2021-07 Yes [id number] INHALE 2 [facility] (XOPENEX 2-29 PUFFS BY ity o f HFA) 45 00:00: MOUTH [place] mcg/actuati 00 EVERY 6 Medic al on inhaler HOURS Branc h NEEDED BEFORE EXERCISE OR FOR WHEEZING/S HORTNESS OF BREATH. levalbutero 2021-07 Yes [id number] INHALE 2 [facility] (XOPENEX 2-29 PUFFS BY ity o f HFA) 45 00:00: MOUTH [place] mcg/actuati 00 EVERY 6 Medic al on inhaler HOURS Branc h NEEDED BEFORE EXERCISE OR FOR WHEEZING/S HORTNESS OF BREATH. levalbutero 2021-07 Yes [id number] INHALE 2 [facility] (XOPENEX 2-29 PUFFS BY ity o f HFA) 45 00:00: MOUTH [place] mcg/actuati 00 EVERY 6 Medic al on inhaler HOURS Branc h NEEDED BEFORE EXERCISE OR FOR WHEEZING/S HORTNESS OF BREATH. levalbutero 2021-07 Yes [id number] INHALE 2 [facility] (XOPENEX 2-29 PUFFS BY ity o f HFA) 45 00:00: MOUTH [place] mcg/actuati 00 EVERY 6 Medic al on inhaler HOURS Branc h NEEDED BEFORE EXERCISE OR FOR WHEEZING/S HORTNESS OF BREATH. levalbutero 2021-07 Yes [id number] INHALE 2 [facility] l (XOPENEX 2-29 PUFFS BY ity o f HFA) 45 00:00: MOUTH [place] mcg/actuati 00 EVERY 6 Medic al on inhaler HOURS Branc h NEEDED BEFORE EXERCISE OR FOR WHEEZING/S HORTNESS OF BREATH. levalbutero 2021-07 Yes [id number] INHALE 2 [facility] (XOPENEX 2-29 PUFFS BY ity o f HFA) 45 00:00: MOUTH [place] mcg/actuati 00 EVERY 6 Medic al on inhaler HOURS Branc h NEEDED BEFORE EXERCISE OR FOR WHEEZING/S HORTNESS OF BREATH. levalbutero 2021-07 Yes [id number] INHALE 2 [facility] l (XOPENEX 2-29 PUFFS BY ity o f HFA) 45 00:00: MOUTH [place] mcg/actuati 00 EVERY 6 Medic al on inhaler HOURS Branc h NEEDED BEFORE EXERCISE OR FOR WHEEZING/S HORTNESS OF BREATH. levalbutero 2021-07 Yes [id number] INHALE 2 [facility] l (XOPENEX 2-29 PUFFS BY ity o f HFA) 45 00:00: MOUTH [place] mcg/actuati 00 EVERY 6 Medic al on inhaler HOURS Branc h NEEDED BEFORE EXERCISE OR FOR WHEEZING/S HORTNESS OF BREATH. levalbutero 2021-07 Yes [id number] INHALE 2 [facility] l (XOPENEX 2-29 PUFFS BY ity o f HFA) 45 00:00: MOUTH [place] mcg/actuati 00 EVERY 6 Medic al on inhaler HOURS Branc h NEEDED BEFORE EXERCISE OR FOR WHEEZING/S HORTNESS OF BREATH. levalbutero 2021-07- No [id number] INHALE 2 [facility] l (XOPENEX 2- PUFFS BY ity of HFA) 45 00:00: 00:00 MOUTH [place] mcg/actuati 00 :00 EVERY 6 Medic al on inhaler HOURS Branc h NEEDED BEFORE EXERCISE OR FOR WHEEZING/S HORTNESS OF BREATH. levalbutero 2021-07- No [id number] INHALE 2 [facility] l (XOPENEX 208-18 PUFFS BY ity of HFA) 45 00:00: 00:00 MOUTH [place] mcg/actuati 00 :00 EVERY 6 Medic al on inhaler HOURS Branc h NEEDED BEFORE EXERCISE OR FOR WHEEZING/S HORTNESS OF BREATH. levalbutero 2021-07- No [id number] INHALE 2 [facility] l (XOPENEX 208-18 PUFFS BY ity of HFA) 45 00:00: 00:00 MOUTH [place] mcg/actuati 00 :00 EVERY 6 Medic al on inhaler HOURS Branc h NEEDED BEFORE EXERCISE OR FOR WHEEZING/S HORTNESS OF BREATH. ibuprofen 2021-07 Yes [id number] 800mg Take 1 [facility] 800 mg 2-25 tablet by ity of tablet 00:00: mouth [place] 00 every 8 Medical (eight) Branch hours as needed for Pain (scale 4-6) or Temp > 38.5 C. benzonatate 2021-07 Yes [id number] 200mg Take 1 [facility] 200 mg 2-25 capsule by ity of capsule 00:00: mouth 3 00 (three) Medical times Branch daily as needed for Cough. ibuprofen 2021-07 Yes [id number] 800mg Take 1 [facility] 800 mg 2-25 tablet by ity of tablet 00:00: mouth [place] 00 every 8 Medical (eight) Branch hours as needed for Pain (scale 4-6) or Temp > 38.5 C. benzonatate 2021-07 Yes [id number] 200mg Take 1 [facility] 200 mg 2-25 capsule by ity of capsule 00:00: mouth 3 [place] 00 (three) Medical times Branch daily as needed for Cough. ibuprofen 2021-07 Yes [id number] 800mg Take 1 [facility] 800 mg 2-25 tablet by ity of tablet 00:00: mouth [place] 00 every 8 Medical (eight) Branch hours as needed for Pain (scale 4-6) or Temp > 38.5 C. benzonatate 2021-07 Yes [id number] 200mg Take 1 [facility] 200 mg 2-25 capsule by ity of capsule 00:00: mouth 3 (three) Medical times Branch daily as needed for Cough. ibuprofen 2021-07 Yes [id number] 800mg Take 1 [facility] 800 mg 2-25 tablet by ity of tablet 00:00: mouth [place] 00 every 8 Medical (eight) Branch hours as needed for Pain (scale 4-6) or Temp > 38.5 C. benzonatate 2021-07 Yes [id number] 200mg Take 1 [facility] 200 mg 2-25 capsule by ity of capsule 00:00: mouth 3 (three) Medical times Branch daily as needed for Cough. ibuprofen 2021-07 Yes [id number] 800mg Take 1 [facility] 800 mg 2-25 tablet by ity of tablet 00:00: mouth [place] 00 every 8 Medical (eight) Branch hours as needed for Pain (scale 4-6) or Temp > 38.5 C. benzonatate 2021-07 Yes [id number] 200mg Take 1 [facility] 200 mg 2-25 capsule by ity of capsule 00:00: mouth 3 (three) Medical times Branch daily as needed for Cough. ibuprofen 2021-07 Yes [id number] 800mg Take 1 [facility] 800 mg 2-25 tablet by ity of tablet 00:00: mouth [place] 00 every 8 Medical (eight) Branch hours as needed for Pain (scale 4-6) or Temp > 38.5 C. benzonatate 2021-07 Yes [id number] 200mg Take 1 [facility] 200 mg 2-25 capsule by ity of capsule 00:00: mouth 3 (three) Medical times Branch daily as needed for Cough. ibuprofen 2021-07 Yes [id number] 800mg Take 1 [facility] 800 mg 2-25 tablet by ity of tablet 00:00: mouth [place] 00 every 8 Medical (eight) Branch hours as needed for Pain (scale 4-6) or Temp > 38.5 C. benzonatate 2021-07 Yes [id number] 200mg Take 1 [facility] 200 mg 2-25 capsule by ity of capsule 00:00: mouth 3 (three) Medical times Branch daily as needed for Cough. ibuprofen 2021-07 Yes [id number] 800mg Take 1 [facility] 800 mg 2-25 tablet by ity of tablet 00:00: mouth [place] 00 every 8 Medical (eight) Branch hours as needed for Pain (scale 4-6) or Temp > 38.5 C. benzonatate 2021-07 Yes [id number] 200mg Take 1 [facility] 200 mg 2-25 capsule by ity of capsule 00:00: mouth 3 [place] (three) Medical times Branch daily as needed for Cough. ibuprofen 2021-07 Yes [id number] 800mg Take 1 [facility] 800 mg 2-25 tablet by ity of tablet 00:00: mouth [place] 00 every 8 Medical (eight) Branch hours as needed for Pain (scale 4-6) or Temp > 38.5 C. benzonatate 2021-07 Yes [id number] 200mg Take 1 [facility] 200 mg 2-25 capsule by ity of capsule 00:00: mouth 3 (three) Medical times Branch daily as needed for Cough. ibuprofen 2021-07 Yes [id number] 800mg Take 1 [facility] 800 mg 2-25 tablet by ity of tablet 00:00: mouth [place] 00 every 8 Medical (eight) Branch hours as needed for Pain (scale 4-6) or Temp > 38.5 C. benzonatate 2021-07 Yes [id number] 200mg Take 1 [facility] 200 mg 2-25 capsule by ity of capsule 00:00: mouth 3 (three) Medical times Branch daily as needed for Cough. ibuprofen 2021-07 Yes [id number] 800mg Take 1 [facility] 800 mg 2-25 tablet by ity of tablet 00:00: mouth [place] 00 every 8 Medical (eight) Branch hours as needed for Pain (scale 4-6) or Temp > 38.5 C. benzonatate 2021-07 Yes [id number] 200mg Take 1 [facility] 200 mg 2-25 capsule by ity of capsule 00:00: mouth 3 (three) Medical times Branch daily as needed for Cough. ibuprofen 2021-07 Yes [id number] 800mg Take 1 [facility] 800 mg 2-25 tablet by ity of tablet 00:00: mouth [place] 00 every 8 Medical (eight) Branch hours as needed for Pain (scale 4-6) or Temp > 38.5 C. benzonatate 2021-07 Yes [id number] 200mg Take 1 [facility] 200 mg 2-25 capsule by ity of capsule 00:00: mouth 3 [place] 00 (three) Medical times Branch daily as needed for Cough. ibuprofen 2021-07 Yes [id number] 800mg Take 1 [facility] 800 mg 2-25 tablet by ity of tablet 00:00: mouth [place] 00 every 8 Medical (eight) Branch hours as needed for Pain (scale 4-6) or Temp > 38.5 C. ibuprofen 2021-07 Yes [id number] 800mg Take 1 [facility] 800 mg 2-25 tablet by ity of tablet 00:00: mouth [place] 00 every 8 Medical (eight) Branch hours as needed for Pain (scale 4-6) or Temp > 38.5 C. ibuprofen 2021-07 Yes [id number] 800mg Take 1 [facility] 800 mg 2-25 tablet by ity of tablet 00:00: mouth [place] 00 every 8 Medical (eight) Branch hours as needed for Pain (scale 4-6) or Temp > 38.5 C. ibuprofen 2021-07 Yes [id number] 800mg Take 1 [facility] 800 mg 2-25 tablet by ity of tablet 00:00: mouth [place] 00 every 8 Medical (eight) Branch hours as needed for Pain (scale 4-6) or Temp > 38.5 C. ibuprofen 2021-07 Yes [id number] 800mg Take 1 [facility] 800 mg 2-25 tablet by ity of tablet 00:00: mouth [place] 00 every 8 Medical (eight) Branch hours as needed for Pain (scale 4-6) or Temp > 38.5 C. ibuprofen 2021-07 Yes [id number] 800mg Take 1 [facility] 800 mg 2-25 tablet by ity of tablet 00:00: mouth [place] 00 every 8 Medical (eight) Branch hours as needed for Pain (scale 4-6) or Temp > 38.5 C. ibuprofen 2021-07 Yes [id number] 800mg Take 1 [facility] 800 mg 2-25 tablet by ity of tablet 00:00: mouth [place] 00 every 8 Medical (eight) Branch hours as needed for Pain (scale 4-6) or Temp > 38.5 C. ibuprofen 2021-07 Yes [id number] 800mg Take 1 [facility] 800 mg 2-25 tablet by ity of tablet 00:00: mouth [place] 00 every 8 Medical (eight) Branch hours as needed for Pain (scale 4-6) or Temp > 38.5 C. ibuprofen 2021-07 Yes [id number] 800mg Take 1 [facility] 800 mg 2-25 tablet by ity of tablet 00:00: mouth [place] 00 every 8 Medical (eight) Branch hours as needed for Pain (scale 4-6) or Temp > 38.5 C. ibuprofen 2021-07 Yes [id number] 800mg Take 1 [facility] 800 mg 2-25 tablet by ity of tablet 00:00: mouth [place] 00 every 8 Medical (eight) Branch hours as needed for Pain (scale 4-6) or Temp > 38.5 C. ibuprofen 2021-07 Yes [id number] 800mg Take 1 [facility] 800 mg 2-25 tablet by ity of tablet 00:00: mouth [place] 00 every 8 Medical (eight) Branch hours as needed for Pain (scale 4-6) or Temp > 38.5 C. ibuprofen 2021-07 Yes [id number] 800mg Take 1 [facility] 800 mg 2-25 tablet by ity of tablet 00:00: mouth [place] 00 every 8 Medical (eight) Branch hours as needed for Pain (scale 4-6) or Temp > 38.5 C. ibuprofen 2021-07 Yes [id number] 800mg Take 1 [facility] 800 mg 2-25 tablet by ity of tablet 00:00: mouth [place] 00 every 8 Medical (eight) Branch hours as needed for Pain (scale 4-6) or Temp > 38.5 C. ibuprofen 2021-07 Yes [id number] 800mg Take 1 [facility] 800 mg 2-25 tablet by ity of tablet 00:00: mouth [place] 00 every 8 Medical (eight) Branch hours as needed for Pain (scale 4-6) or Temp > 38.5 C. ibuprofen 2021-07 Yes [id number] 800mg Take 1 [facility] 800 mg 2-25 tablet by ity of tablet 00:00: mouth [place] 00 every 8 Medical (eight) Branch hours as needed for Pain (scale 4-6) or Temp > 38.5 C. ibuprofen 2021-07 Yes [id number] 800mg Take 1 [facility] 800 mg 2-25 tablet by ity of tablet 00:00: mouth [place] 00 every 8 Medical (eight) Branch hours as needed for Pain (scale 4-6) or Temp > 38.5 C. ibuprofen 2021-07 Yes [id number] 800mg Take 1 [facility] 800 mg 2-25 tablet by ity of tablet 00:00: mouth [place] 00 every 8 Medical (eight) Branch hours as needed for Pain (scale 4-6) or Temp > 38.5 C. ibuprofen 2021-07 Yes [id number] 800mg Take 1 [facility] 800 mg 2-25 tablet by ity of tablet 00:00: mouth [place] 00 every 8 Medical (eight) Branch hours as needed for Pain (scale 4-6) or Temp > 38.5 C. ibuprofen 2021-07 Yes [id number] 800mg Take 1 [facility] 800 mg 2-25 tablet by ity of tablet 00:00: mouth [place] 00 every 8 Medical (eight) Branch hours as needed for Pain (scale 4-6) or Temp > 38.5 C. ibuprofen 2021-07 Yes [id number] 800mg Take 1 [facility] 800 mg 2-25 tablet by ity of tablet 00:00: mouth [place] 00 every 8 Medical (eight) Branch hours as needed for Pain (scale 4-6) or Temp > 38.5 C. ibuprofen 2021-07 Yes [id number] 800mg Take 1 [facility] 800 mg 2-25 tablet by ity of tablet 00:00: mouth [place] 00 every 8 Medical (eight) Branch hours as needed for Pain (scale 4-6) or Temp > 38.5 C. ibuprofen 2021-07 Yes [id number] 800mg Take 1 [facility] 800 mg 2-25 tablet by ity of tablet 00:00: mouth [place] 00 every 8 Medical (eight) Branch hours as needed for Pain (scale 4-6) or Temp > 38.5 C. ibuprofen 2021-07 Yes [id number] 800mg Take 1 [facility] 800 mg 2-25 tablet by ity of tablet 00:00: mouth [place] 00 every 8 Medical (eight) Branch hours as needed for Pain (scale 4-6) or Temp > 38.5 C. ibuprofen 2021-07 Yes [id number] 800mg Take 1 [facility] 800 mg 2-25 tablet by ity of tablet 00:00: mouth [place] 00 every 8 Medical (eight) Branch hours as needed for Pain (scale 4-6) or Temp > 38.5 C. ibuprofen 2021-07 Yes [id number] 800mg Take 1 [facility] 800 mg 2-25 tablet by ity of tablet 00:00: mouth [place] 00 every 8 Medical (eight) Branch hours as needed for Pain (scale 4-6) or Temp > 38.5 C. ibuprofen 2021-07 Yes [id number] 800mg Take 1 [facility] 800 mg 2-25 tablet by ity of tablet 00:00: mouth [place] 00 every 8 Medical (eight) Branch hours as needed for Pain (scale 4-6) or Temp > 38.5 C. ibuprofen 2021-07 Yes [id number] 800mg Take 1 [facility] 800 mg 2-25 tablet by ity of tablet 00:00: mouth [place] 00 every 8 Medical (eight) Branch hours as needed for Pain (scale 4-6) or Temp > 38.5 C. ibuprofen 2021-07 Yes [id number] 800mg Take 1 [facility] 800 mg 2-25 tablet by ity of tablet 00:00: mouth [place] 00 every 8 Medical (eight) Branch hours as needed for Pain (scale 4-6) or Temp > 38.5 C. ibuprofen 2021-07 Yes [id number] 800mg Take 1 [facility] 800 mg 2-25 tablet by ity of tablet 00:00: mouth [place] 00 every 8 Medical (eight) Branch hours as needed for Pain (scale 4-6) or Temp > 38.5 C. ibuprofen 2021-07 Yes [id number] 800mg Take 1 [facility] 800 mg 2-25 tablet by ity of tablet 00:00: mouth [place] 00 every 8 Medical (eight) Branch hours as needed for Pain (scale 4-6) or Temp > 38.5 C. ibuprofen 2021-07 Yes [id number] 800mg Take 1 [facility] 800 mg 2-25 tablet by ity of tablet 00:00: mouth [place] 00 every 8 Medical (eight) Branch hours as needed for Pain (scale 4-6) or Temp > 38.5 C. ibuprofen 2021-07 Yes [id number] 800mg Take 1 [facility] 800 mg 2-25 tablet by ity of tablet 00:00: mouth [place] 00 every 8 Medical (eight) Branch hours as needed for Pain (scale 4-6) or Temp > 38.5 C. ibuprofen 2021-07 Yes [id number] 800mg Take 1 [facility] 800 mg 2-25 tablet by ity of tablet 00:00: mouth [place] 00 every 8 Medical (eight) Branch hours as needed for Pain (scale 4-6) or Temp > 38.5 C. ibuprofen 2021-07- No [id number] 800mg Take 1 [facility] 800 mg 2-25 04-11 tablet by ity of tablet 00:00: 00:00 mouth [place] 00 :00 every 8 Medical (eight) Branch hours as needed for Pain (scale 4-6) or Temp > 38.5 C. benzonatate 2021-07- No [id number] 200mg Take 1 [facility] 200 mg 2-25 - capsule by ity of capsule 00:00: 00:00 mouth 3 [place] 00 :00 (three) Medical times Branch daily as needed for Cough. benzonatate 2021-07- No [id number] 200mg Take 1 [facility] 200 mg 2-25 - capsule by ity of capsule 00:00: 00:00 mouth 3 [place] 00 :00 (three) Medical times Branch daily as needed for Cough. benzonatate 2021-07- No [id number] 200mg Take 1 [facility] 200 mg 2-25 08-18 capsule by ity of capsule 00:00: 00:00 mouth 3 [place] 00 :00 (three) Medical times Branch daily as needed for Cough. dexamethaso 2021-07 Yes [id number] 12mg Take 120 [facility] ne 0.1 2-22 mL by ity of mg/mL LOW 00:00: mouth in [place] [facility] 00 the Medical ON solution morning. Bran ch dexamethaso 2021-07 Yes [id number] 12mg Take 120 [facility] ne 0.1 2-22 mL by ity of mg/mL LOW 00:00: mouth [place] [facility] 00 the Medical ON solution morning. Bran ch dexamethaso 2021-07 Yes [id number] 12mg Take 120 [facility] ne 0.1 2-22 mL by ity of mg/mL LOW 00:00: mouth [place] [facility] 00 the Medical ON solution morning. Bran ch dexamethaso 2021-07 Yes [id number] 12mg Take 120 [facility] ne 0.1 2-22 mL by ity of mg/mL LOW 00:00: mouth [place] [facility] 00 the Medical ON solution morning. Bran ch dexamethaso 2021-07 Yes [id number] 12mg Take 120 [facility] ne 0.1 2-22 mL by ity of mg/mL LOW 00:00: mouth [place] [facility] 00 the Medical ON solution morning. Volodymyr anderson dexamethaso 2021-07 Yes [id number] 12mg Take 120 [facility] ne 0.1 2-22 mL by ity of mg/mL LOW 00:00: mouth [place] [facility] 00 the Medical ON solution morning. Vloodymyr anderson dexamethaso 2021-07 Yes [id number] 12mg Take 120 [facility] ne 0.1 2-22 mL by ity of mg/mL LOW 00:00: mouth in [place] [facility] 00 the Medical ON solution morning. Volodymyr and[place] dexamethaso 2021-07 Yes [id number] 12mg Take 120 [facility] ne 0.1 2-22 mL by ity of mg/mL LOW 00:00: mouth [place] [facility] 00 the Medical ON solution morning. Volodymyr [place] dexamethaso 2021-07 Yes [id number] 12mg Take 120 [facility] ne 0.1 2-22 mL by ity of mg/mL LOW 00:00: mouth [place] [facility] 00 the Medical ON solution morning. Volodymyr and[place] dexamethaso 2021-07 Yes [id number] 12mg Take 120 [facility] ne 0.1 2-22 mL by ity of mg/mL LOW 00:00: mouth [place] [facility] 00 the Medical ON solution morning. Volodymyr anderson dexamethaso 2021-07 Yes [id number] 12mg Take 120 [facility] ne 0.1 2-22 mL by ity of mg/mL LOW 00:00: mouth [place] [facility] 00 the Medical ON solution morning. Volodymyr [place] dexamethaso 2021-07 Yes [id number] 12mg Take 120 [facility] ne 0.1 2-22 mL by ity of mg/mL LOW 00:00: mouth [place] [facility] 00 the Medical ON solution morning. Volodymyr anderson dexamethaso 2021-07 Yes [id number] 12mg Take 120 [facility] ne 0.1 2-22 mL by ity of mg/mL LOW 00:00: mouth [place] [facility] 00 the Medical ON solution morning. Volodymyr and[place] dexamethaso 2021-07- No [id number] 12mg Take 120 [facility] ne 0.1 2-22 01-31 mL by ity of mg/mL LOW 00:00: 00:00 mouth in [place] [facility] 00 :00 the Medical ON solution morning. Bran ch dexamethaso 2021-07- No [id number] 12mg Take 120 [facility] ne 0.1 22 -31 mL by ity of mg/mL LOW 00:00: 00:00 mouth in [place] as [facility] 00 :00 the Medical ON solution morning. Bran ch dexamethaso 2021-07- No [id number] 12mg Take 120 [facility] ne 0.1 22 -31 mL by ity of mg/mL LOW 00:00: 00:00 mouth in [place] as [facility] 00 :00 the Medical ON solution morning. Bran ch ARIPiprazol 2021-07 Yes by Univer s e [...] s e (ABILIFY 2-05 [facility]) 09:02: lar route [place] as 300 mg sers 43 once every Me dical month. Branch ARIPiprazol 2021-07 Yes by Univer s e (ABILIFY 2-05 [facility]) 09:02: lar route [place] as 300 mg sers 43 once every Me dical month. Branch budesonide- 2021-07 Yes [id number] 2{puff} Inhale 2 [facility] formoteroL 2-05 Puffs in ity o f (SYMBICORT) 00:00: the [place] 160-4.5 00 morning Medical mcg/actuati and 2 Branch on inhaler Puffs in the evening. tiotropium 2021-07 Yes [id number] 1{puff} Inhale 1 [facility] bromide 2-05 Puff ity of (SPIRIVA 00:00: daily. [place] RESPIMAT) 00 Medical 2.5 Branch mcg/actuati on Mist budesonide- 2021-07 Yes [id number] 2{puff} Inhale 2 [facility] formoteroL 2-05 Puffs in ity o f (SYMBICORT) 00:00: the [place] 160-4.5 00 morning Medical mcg/actuati and 2 Branch on inhaler Puffs in the evening. tiotropium 2021-07 Yes [id number] 1{puff} Inhale 1 [facility] bromide 2-05 Puff ity of (SPIRIVA 00:00: daily. [place] RESPIMAT) 00 Medical 2.5 Branch mcg/actuati on Mist budesonide- 2021-07 Yes [id number] 2{puff} Inhale 2 [facility] formoteroL 2-05 Puffs in ity o f (SYMBICORT) 00:00: the [place] 160-4.5 00 morning Medical mcg/actuati and 2 Branch on inhaler Puffs in the evening. tiotropium 2021-07 Yes [id number] 1{puff} Inhale 1 [facility] bromide 2-05 Puff ity of (SPIRIVA 00:00: daily. [place] RESPIMAT) 00 Medical 2.5 Branch mcg/actuati on Mist budesonide- 2021-07 Yes [id number] 2{puff} Inhale 2 [facility] formoteroL 2-05 Puffs in ity o f (SYMBICORT) 00:00: the [place] 160-4.5 00 morning Medical mcg/actuati and 2 Branch on inhaler Puffs in the evening. tiotropium 2021-07 Yes [id number] 1{puff} Inhale 1 [facility] bromide 2-05 Puff ity of (SPIRIVA 00:00: daily. [place] RESPIMAT) 00 Medical 2.5 Branch mcg/actuati on Mist budesonide- 2021-07 Yes [id number] 2{puff} Inhale 2 [facility] formoteroL 2-05 Puffs in ity o f (SYMBICORT) 00:00: the [place] 160-4.5 00 morning Medical mcg/actuati and 2 Branch on inhaler Puffs in the evening. tiotropium 2021-07 Yes [id number] 1{puff} Inhale 1 [facility] bromide 2-05 Puff ity of (SPIRIVA 00:00: daily. [place] RESPIMAT) 00 Medical 2.5 Branch mcg/actuati on Mist budesonide- 2021-07 Yes [id number] 2{puff} Inhale 2 [facility] formoteroL 2-05 Puffs in ity o f (SYMBICORT) 00:00: the [place] 160-4.5 00 morning Medical mcg/actuati and 2 Branch on inhaler Puffs in the evening. tiotropium 2021-07 Yes [id number] 1{puff} Inhale 1 [facility] bromide 2-05 Puff ity of (SPIRIVA 00:00: daily. [place] RESPIMAT) 00 Medical 2.5 Branch mcg/actuati on Mist budesonide- 2021-07 Yes [id number] 2{puff} Inhale 2 [facility] formoteroL 2-05 Puffs in ity o f (SYMBICORT) 00:00: the [place] 160-4.5 00 morning Medical mcg/actuati and 2 Branch on inhaler Puffs in the evening. tiotropium 2021-07 Yes [id number] 1{puff} Inhale 1 [facility] bromide 2-05 Puff ity of (SPIRIVA 00:00: daily. [place] RESPIMAT) 00 Medical 2.5 Branch mcg/actuati on Mist budesonide- 2021-07 Yes [id number] 2{puff} Inhale 2 [facility] formoteroL 2-05 Puffs in ity o f (SYMBICORT) 00:00: the [place] 160-4.5 00 morning Medical mcg/actuati and 2 Branch on inhaler Puffs in the evening. tiotropium 2021-07 Yes [id number] 1{puff} Inhale 1 [facility] bromide 2-05 Puff ity of (SPIRIVA 00:00: daily. [place] RESPIMAT) 00 Medical 2.5 Branch mcg/actuati on Mist budesonide- 2021-07 Yes [id number] 2{puff} Inhale 2 [facility] formoteroL 2-05 Puffs in ity o f (SYMBICORT) 00:00: the [place] 160-4.5 00 morning Medical mcg/actuati and 2 Branch on inhaler Puffs in the evening. tiotropium 2021-07 Yes [id number] 1{puff} Inhale 1 [facility] bromide 2-05 Puff ity of (SPIRIVA 00:00: daily. [place] RESPIMAT) 00 Medical 2.5 Branch mcg/actuati on Mist budesonide- 2021-07 Yes [id number] 2{puff} Inhale 2 Univers formoteroL 2-05 Puffs in ity o f (SYMBICORT) 00:00: the [place] 160-4.5 00 morning Medical mcg/actuati and 2 Branch on inhaler Puffs in the evening. tiotropium 2021-07 Yes [id number] 1{puff} Inhale 1 [facility] bromide 2-05 Puff ity of (SPIRIVA 00:00: daily. [place] RESPIMAT) 00 Medical 2.5 Branch mcg/actuati on Mist budesonide- 2021-07 Yes [id number] 2{puff} Inhale 2 [facility] formoteroL 2-05 Puffs in ity o f (SYMBICORT) 00:00: the [place] 160-4.5 00 morning Medical mcg/actuati and 2 Branch on inhaler Puffs in the evening. tiotropium 2021-07 Yes [id number] 1{puff} Inhale 1 [facility] bromide 2-05 Puff ity of (SPIRIVA 00:00: daily. [place] RESPIMAT) 00 Medical 2.5 Branch mcg/actuati on Mist budesonide- 2021-07 Yes [id number] 2{puff} Inhale 2 [facility] formoteroL 2-05 Puffs in ity o f (SYMBICORT) 00:00: the [place] 160-4.5 00 morning Medical mcg/actuati and 2 Branch on inhaler Puffs in the evening. tiotropium 2021-07 Yes [id number] 1{puff} Inhale 1 [facility] bromide 2-05 Puff ity of (SPIRIVA 00:00: daily. [place] RESPIMAT) 00 Medical 2.5 Branch mcg/actuati on Mist budesonide- 2021-07 Yes [id number] 2{puff} Inhale 2 [facility] formoteroL 2-05 Puffs in ity o f (SYMBICORT) 00:00: the [place] 160-4.5 00 morning Medical mcg/actuati and 2 Branch on inhaler Puffs in the evening. tiotropium 2021-07 Yes [id number] 1{puff} Inhale 1 [facility] bromide 2-05 Puff ity of (SPIRIVA 00:00: daily. [place] RESPIMAT) 00 Medical 2.5 Branch mcg/actuati on Mist budesonide- 2021-07 Yes [id number] 2{puff} Inhale 2 [facility] formoteroL 2-05 Puffs in ity o f (SYMBICORT) 00:00: the [place] 160-4.5 00 morning Medical mcg/actuati and 2 Branch on inhaler Puffs in the evening. tiotropium 2021-07 Yes [id number] 1{puff} Inhale 1 [facility] bromide 2-05 Puff ity of (SPIRIVA 00:00: daily. [place] RESPIMAT) 00 Medical 2.5 Branch mcg/actuati on Mist budesonide- 2021-07 Yes [id number] 2{puff} Inhale 2 [facility] formoteroL 2-05 Puffs in ity of (SYMBICORT) 00:00: the [place] 160-4.5 00 morning Medical mcg/actuati and 2 Branch on inhaler Puffs in the evening. tiotropium 2021-07 Yes [id number] 1{puff} Inhale 1 [facility] bromide 2-05 Puff ity of (SPIRIVA 00:00: daily. [place] RESPIMAT) 00 Medical 2.5 Branch mcg/actuati on Mist budesonide- 2021-07 Yes [id number] 2{puff} Inhale 2 [facility] formoteroL 2-05 Puffs in ity o f (SYMBICORT) 00:00: the [place] 160-4.5 00 morning Medical mcg/actuati and 2 Branch on inhaler Puffs in the evening. tiotropium 2021-07 Yes [id number] 1{puff} Inhale 1 [facility] bromide 2-05 Puff ity of (SPIRIVA 00:00: daily. [place] RESPIMAT) 00 Medical 2.5 Branch mcg/actuati on Mist budesonide- 2021-07 Yes [id number] 2{puff} Inhale 2 [facility] formoteroL 2-05 Puffs in ity o f (SYMBICORT) 00:00: the [place] 160-4.5 00 morning Medical mcg/actuati and 2 Branch on inhaler Puffs in the evening. tiotropium 2021-07 Yes [id number] 1{puff} Inhale 1 [facility] bromide 2-05 Puff ity of (SPIRIVA 00:00: daily. [place] RESPIMAT) 00 Medical 2.5 Branch mcg/actuati on Mist budesonide- 2021-07 Yes [id number] 2{puff} Inhale 2 [facility] formoteroL 2-05 Puffs in ity o f (SYMBICORT) 00:00: the [place] 160-4.5 00 morning Medical mcg/actuati and 2 Branch on inhaler Puffs in the evening. tiotropium 2021-07 Yes [id number] 1{puff} Inhale 1 [facility] bromide 2-05 Puff ity of (SPIRIVA 00:00: daily. [place] RESPIMAT) 00 Medical 2.5 Branch mcg/actuati on Mist budesonide- 2021-07 Yes [id number] 2{puff} Inhale 2 [facility] formoteroL 2-05 Puffs in ity o f (SYMBICORT) 00:00: the [place] 160-4.5 00 morning Medical mcg/actuati and 2 Branch on inhaler Puffs in the evening. tiotropium 2021-07 Yes [id number] 1{puff} Inhale 1 [facility] bromide 2-05 Puff ity of (SPIRIVA 00:00: daily. [place] RESPIMAT) 00 Medical 2.5 Branch mcg/actuati on Mist methocarbam 2021-07 Yes TAKE 1 Univ ers oL 750 mg 2-05 TABLET BY ity o f tablet 00:00: MOUTH [place] 00 EVERY DAY Medical NEEDED Branch budesonide- 2021-07 Yes [id number] 2{puff} Inhale 2 [facility] formoteroL 2-05 Puffs in ity o f (SYMBICORT) 00:00: the [place] 160-4.5 00 morning Medical mcg/actuati and 2 Branch on inhaler Puffs in the evening. tiotropium 2021-07 Yes [id number] 1{puff} Inhale 1 [facility] bromide 2-05 Puff ity of (SPIRIVA 00:00: daily. [place] RESPIMAT) Medical 2.5 Branch mcg/actuati on Mist methocarbam 2021-07 Yes TAKE 1 Univ ers oL 750 mg 2-05 TABLET BY ity o f tablet 00:00: MOUTH [place] 00 EVERY DAY Medical NEEDED Branch budesonide- 2021-07 Yes [id number] 2{puff} Inhale 2 [facility] formoteroL 2-05 Puffs in ity o f (SYMBICORT) 00:00: the [place] 160-4.5 00 morning Medical mcg/actuati and 2 Branch on inhaler Puffs in the evening. tiotropium 2021-07 Yes [id number] 1{puff} Inhale 1 [facility] bromide 2-05 Puff ity of (SPIRIVA 00:00: daily. [place] RESPIMAT) Medical 2.5 Branch mcg/actuati on Mist methocarbam 2021-07 Yes TAKE 1 Univ ers oL 750 mg 2-05 TABLET BY ity o f tablet 00:00: MOUTH [place] 00 EVERY DAY Medical NEEDED Branch budesonide- 2021-07 Yes [id number] 2{puff} Inhale 2 [facility] formoteroL 2-05 Puffs in ity o f (SYMBICORT) 00:00: the [place] 160-4.5 00 morning Medical mcg/actuati and 2 Branch on inhaler Puffs in the evening. tiotropium 2021-07 Yes [id number] 1{puff} Inhale 1 [facility] bromide 2-05 Puff ity of (SPIRIVA 00:00: daily. [place] RESPIMAT) Medical 2.5 Branch mcg/actuati on Mist methocarbam 2021-07 Yes TAKE 1 Univ ers oL 750 mg 2-05 TABLET BY ity o f tablet 00:00: MOUTH [place] 00 EVERY DAY Medical NEEDED Branch budesonide- 2021-07 Yes [id number] 2{puff} Inhale 2 [facility] formoteroL 2-05 Puffs in ity o f (SYMBICORT) 00:00: the [place] 160-4.5 00 morning Medical mcg/actuati and 2 Branch on inhaler Puffs in the evening. tiotropium 2021-07 Yes [id number] 1{puff} Inhale 1 [facility] bromide 2-05 Puff ity of (SPIRIVA 00:00: daily. [place] RESPIMAT) 00 Medical 2.5 Branch mcg/actuati on Mist budesonide- 2021-07 Yes [id number] 2{puff} Inhale 2 [facility] formoteroL 2-05 Puffs in ity o f (SYMBICORT) 00:00: the [place] 160-4.5 00 morning Medical mcg/actuati and 2 Branch on inhaler Puffs in the evening. tiotropium 2021-07 Yes [id number] 1{puff} Inhale 1 [facility] bromide 2-05 Puff ity of (SPIRIVA 00:00: daily. [place] RESPIMAT) 00 Medical 2.5 Branch mcg/actuati on Mist budesonide- 2021-07 Yes [id number] 2{puff} Inhale 2 [facility] formoteroL 2-05 Puffs in ity o f (SYMBICORT) 00:00: the [place] 160-4.5 00 morning Medical mcg/actuati and 2 Branch on inhaler Puffs in the evening. tiotropium 2021-07 Yes [id number] 1{puff} Inhale 1 [facility] bromide 2-05 Puff ity of (SPIRIVA 00:00: daily. [place] RESPIMAT) 00 Medical 2.5 Branch mcg/actuati on Mist budesonide- 2021-07 Yes [id number] 2{puff} Inhale 2 [facility] formoteroL 2-05 Puffs in ity o f (SYMBICORT) 00:00: the [place] 160-4.5 00 morning Medical mcg/actuati and 2 Branch on inhaler Puffs in the evening. tiotropium 2021-07 Yes [id number] 1{puff} Inhale 1 [facility] bromide 2-05 Puff ity of (SPIRIVA 00:00: daily. [place] RESPIMAT) 00 Medical 2.5 Branch mcg/actuati on Mist methocarbam 2021-07 Yes TAKE 1 Univ ers oL 750 mg 2-05 TABLET BY ity o f tablet 00:00: MOUTH [place] 00 EVERY DAY Medical NEEDED Branch budesonide- 2021-07 Yes [id number] 2{puff} Inhale 2 [facility] formoteroL 2-05 Puffs in ity o f (SYMBICORT) 00:00: the [place] 160-4.5 00 morning Medical mcg/actuati and 2 Branch on inhaler Puffs in the evening. tiotropium 2021-07 Yes [id number] 1{puff} Inhale 1 [facility] bromide 2-05 Puff ity of (SPIRIVA 00:00: daily. [place] RESPIMAT) 00 Medical 2.5 Branch mcg/actuati on Mist methocarbam 2021-07 Yes TAKE 1 Univ ers oL 750 mg 2-05 TABLET BY ity o f tablet 00:00: MOUTH [place] [address] EVERY DAY Medical NEEDED Branch budesonide- 2021-07 Yes [id number] 2{puff} Inhale 2 Univers formoteroL 2-05 Puffs in ity o f (SYMBICORT) 00:00: the [place] 160-4.5 00 morning Medical mcg/actuati and 2 Branch on inhaler Puffs in the evening. tiotropium 2021-07 Yes [id number] 1{puff} Inhale 1 [facility] bromide 2-05 Puff ity of (SPIRIVA 00:00: daily. [place] RESPIMAT) 00 Medical 2.5 Branch mcg/actuati on Mist methocarbam 2021-07 Yes TAKE 1 Univ ers oL 750 mg 2-05 TABLET BY ity o f tablet 00:00: MOUTH [place] [address] EVERY DAY Medical NEEDED Branch budesonide- 2021-07 Yes [id number] 2{puff} Inhale 2 Univers formoteroL 2-05 Puffs in ity o f (SYMBICORT) 00:00: the [place] 160-4.5 00 morning Medical mcg/actuati and 2 Branch on inhaler Puffs in the evening. tiotropium 2021-07 Yes [id number] 1{puff} Inhale 1 [facility] bromide 2-05 Puff ity of (SPIRIVA 00:00: daily. [place] RESPIMAT) 00 Medical 2.5 Branch mcg/actuati on Mist methocarbam 2021-07 Yes TAKE 1 Univ ers oL 750 mg 2-05 TABLET BY ity o f tablet 00:00: MOUTH [place] 00 EVERY DAY Medical NEEDED Branch budesonide- 2021-07 Yes [id number] 2{puff} Inhale 2 Univers formoteroL 2-05 Puffs in ity o f (SYMBICORT) 00:00: the [place] 160-4.5 00 morning Medical mcg/actuati and 2 Branch on inhaler Puffs in the evening. tiotropium 2021-07 Yes [id number] 1{puff} Inhale 1 [facility] bromide 2-05 Puff ity of (SPIRIVA 00:00: daily. [place] RESPIMAT) 00 Medical 2.5 Branch mcg/actuati on Mist methocarbam 2021-07 Yes TAKE 1 Univ ers oL 750 mg 2-05 TABLET BY ity o f tablet 00:00: MOUTH [place] 00 EVERY DAY Medical NEEDED Branch budesonide- 2021-07 Yes [id number] 2{puff} Inhale 2 [facility] formoteroL 2-05 Puffs in ity o f (SYMBICORT) 00:00: the [place] 160-4.5 00 morning Medical mcg/actuati and 2 Branch on inhaler Puffs in the evening. tiotropium 2021-07 Yes [id number] 1{puff} Inhale 1 [facility] bromide 2-05 Puff ity of (SPIRIVA 00:00: daily. [place] RESPIMAT) 00 Medical 2.5 Branch mcg/actuati on Mist methocarbam 2021-07 Yes TAKE 1 Univ ers oL 750 mg 2-05 TABLET BY ity o f tablet 00:00: MOUTH [place] [address] EVERY DAY Medical NEEDED Branch budesonide- 2021-07 Yes [id number] 2{puff} Inhale 2 Univers formoteroL 2-05 Puffs in ity o f (SYMBICORT) 00:00: the [place] 160-4.5 00 morning Medical mcg/actuati and 2 Branch on inhaler Puffs in the evening. tiotropium 2021-07 Yes [id number] 1{puff} Inhale 1 [facility] bromide 2-05 Puff ity of (SPIRIVA 00:00: daily. [place] RESPIMAT) 00 Medical 2.5 Branch mcg/actuati on Mist methocarbam 2021-07 Yes TAKE 1 Univ ers oL 750 mg 2-05 TABLET BY ity o f tablet 00:00: MOUTH [place] 00 EVERY DAY Medical NEEDED Branch budesonide- 2021-07 Yes [id number] 2{puff} Inhale 2 Univers formoteroL 2-05 Puffs in ity o f (SYMBICORT) 00:00: the [place] 160-4.5 00 morning Medical mcg/actuati and 2 Branch on inhaler Puffs in the evening. tiotropium 2021-07 Yes [id number] 1{puff} Inhale 1 [facility] bromide 2-05 Puff ity of (SPIRIVA 00:00: daily. [place] RESPIMAT) 00 Medical 2.5 Branch mcg/actuati on Mist methocarbam 2021-07 Yes TAKE 1 Univ ers oL 750 mg 2-05 TABLET BY ity o f tablet 00:00: MOUTH [place] 00 EVERY DAY Medical NEEDED Branch budesonide- 2021-07 Yes [id number] 2{puff} Inhale 2 Univers formoteroL 2-05 Puffs in ity o f (SYMBICORT) 00:00: the [place] 160-4.5 00 morning Medical mcg/actuati and 2 Branch on inhaler Puffs in the evening. tiotropium 2021-07 Yes [id number] 1{puff} Inhale 1 [facility] bromide 2-05 Puff ity of (SPIRIVA 00:00: daily. [place] RESPIMAT) 00 Medical 2.5 Branch mcg/actuati on Mist budesonide- 2021-07 Yes [id number] 2{puff} Inhale 2 Univers formoteroL 2-05 Puffs in ity o f (SYMBICORT) 00:00: the [place] 160-4.5 00 morning Medical mcg/actuati and 2 Branch on inhaler Puffs in the evening. tiotropium 2021-07 Yes [id number] 1{puff} Inhale 1 Univers bromide 2-05 Puff [...] TABLET BY ity o f tablet 00:00: [facility] 00 EVERY DAY Medical NEEDED Branch methocarbam 2021-07 Yes TAKE 1 Univ ers oL 750 mg 2-05 TABLET BY ity o f tablet 00:00: MOUTH [place] 00 EVERY DAY Medical NEEDED Branch methocarbam 2021-07 Yes TAKE 1 Univ ers oL 750 mg 2-05 TABLET BY ity o f tablet 00:00: [facility] 00 EVERY DAY Medical NEEDED Branch methocarbam 2021-07 Yes TAKE 1 Univ ers oL 750 mg 2-05 TABLET BY ity o f tablet 00:00: [facility] 00 EVERY DAY Medical NEEDED Branch methocarbam 2021-07 Yes TAKE 1 Univ ers oL 750 mg 2-05 TABLET BY ity o f tablet 00:00: MOUTH [place] 00 EVERY DAY Medical NEEDED Branch methocarbam 2021-07 Yes TAKE 1 Univ ers oL 750 mg 2-05 TABLET BY ity o f tablet 00:00: [facility] 00 EVERY DAY Medical NEEDED Branch methocarbam 2021-07 Yes TAKE 1 Univ ers oL 750 mg 2-05 TABLET BY ity o f tablet 00:00: MOUTH [place] 00 EVERY DAY Medical NEEDED Branch budesonide- 2021-07- No [id number] 2{puff} Inhale 2 Univers formoteroL 2-05 03-20 Puffs in ity of (SYMBICORT) 00:00: 00:00 the [place] 160-4.5 00 :00 morning Medical mcg/actuati and 2 Branch on inhaler Puffs in the evening. tiotropium 2021-07- No [id number] 1{puff} Inhale 1 Univers bromide 2-05 03-20 Puff ity of (SPIRIVA 00:00: 00:00 daily. [place] RESPIMAT) 00 :00 Medical 2.5 Branch mcg/actuati on Mist budesonide- 2021-07- No [id number] 2{puff} Inhale 2 Univers formoteroL 2-05 03-20 Puffs in ity of (SYMBICORT) 00:00: 00:00 the [place] 160-4.5 00 :00 morning Medical mcg/actuati and 2 Branch on inhaler Puffs in the evening. tiotropium 2021-07- No [id number] 1{puff} Inhale 1 Univers bromide 2-05 03-20 Puff ity of (SPIRIVA 00:00: 00:00 daily. [place] RESPIMAT) 00 :00 Medical 2.5 Branch mcg/actuati on Mist budesonide- 2021-07- No [id number] 2{puff} Inhale 2 Univers formoteroL 2-05 03-20 Puffs in ity of (SYMBICORT) 00:00: 00:00 the [place] 160-4.5 00 :00 morning Medical mcg/actuati and 2 Branch on inhaler Puffs in the evening. tiotropium 2021-07- No [id number] 1{puff} Inhale 1 Univers bromide 2-05 03-20 Puff ity of (SPIRIVA 00:00: 00:00 daily. [place] RESPIMAT) 00 :00 Medical 2.5 Branch mcg/actuati on Mist budesonide- 2021-07- No [id number] 2{puff} Inhale 2 Univers formoteroL 2-05 03-20 Puffs in ity of (SYMBICORT) 00:00: 00:00 the [place] 160-4.5 00 :00 morning Medical mcg/actuati and 2 Branch on inhaler Puffs in the evening. tiotropium 2021-07- No [id number] 1{puff} Inhale 1 Univers bromide 2-05 03-20 Puff ity of (SPIRIVA 00:00: 00:00 daily. [place] RESPIMAT) 00 :00 Medical 2.5 Branch mcg/actuati on Mist budesonide- 2021-07- No [id number] 2{puff} Inhale 2 Univers formoteroL 2-05 03-20 Puffs in ity of (SYMBICORT) 00:00: 00:00 the [place] 160-4.5 00 :00 morning Medical mcg/actuati and 2 Branch on inhaler Puffs in the evening. tiotropium 2021-07- No [id number] 1{puff} Inhale 1 Univers bromide 2-05 03-20 Puff ity of (SPIRIVA 00:00: 00:00 daily. [place] RESPIMAT) 00 :00 Medical 2.5 Branch mcg/actuati on Mist azithromyci 2021-07- No 500mg 500 mg, IV Univers n 08-22 Piggyback, ity of (ZITHROMAX) 09:00: 10:05 ONCE, 1 [place] 500 mg in 00 :00 dose, On Medica l NaCl 0.9% [place] Branch (NS) 250 mL 06/21/22 at VIAL-MATE [...] Branch 06/21/22 at 0215, 1 mL ipratropium 2021-07 No 3mL 3 mL, [facility] ers -albuteroL 08-22 Inhalation it y of (DUONEB) 06:15: 05:29 , ONCE, 1 [place] 0.5 mg-3 00 :00 dose, On Medical mg(2.5 mg [place] Branch base)/3 mL 06/21/22 at nebulizer 0015, LESLIE solution 3 mL azithromyci 2021-07- No [id number] Take 42 mL Univers n 100 mg/5 08-22 12-10 by mouth ity of mL 00:00: 05:59 every 24 [place] suspension 00 :00 (twenty-fo Med ical ur) hours Branch AND 21 mL daily. Do all this for 5 days. azithromyci 2021-07- No [id number] Take 42 mL Univers n 100 mg/5 08-22-10 by mouth ity of mL 00:00: 05:59 every 24 [place] suspension 00 :00 (twenty-fo Med ical ur) hours Branch AND 21 mL daily. Do all this for 5 days. azithromyci 2021-07- No [id number] Take 42 mL Univers n 100 mg/5 08-22-10 by mouth ity of mL 00:00: 05:59 every 24 [place] suspension 00 :00 (twenty-fo Med ical ur) hours Branch AND 21 mL daily. Do all this for 5 days. azithromyci 2021-07- No [id number] Take 42 mL Univers n 100 mg/5 08-22-10 by mouth ity of mL 00:00: 05:59 every 24 [place] suspension 00 :00 (twenty-fo Med ical ur) hours Branch AND 21 mL daily. Do all this for 5 days. azithromyci 2021-07- No [id number] Take 42 mL Univers n 100 mg/5 08-22-10 by mouth ity of mL 00:00: 05:59 every 24 [place] suspension 00 :00 (twenty-fo Med ical ur) hours Branch AND 21 mL daily. Do all this for 5 days. azithromyci 2021-07- No [id number] Take 42 mL Univers n 100 mg/5 08-22-10 by mouth ity of mL 00:00: 05:59 every 24 [place] suspension 00 :00 (twenty-fo Med ical ur) hours Branch AND 21 mL daily. Do all this for 5 days. dexamethaso 2021-07- No [id number] 8mg Take 80 mL Univers ne 0.1 08-22 by mouth ity of mg/mL LOW 00:00: 05:59 once now [place] CONCENTRATI 00 :00 for 1 Medical ON solution dose. Branch doxycycline 2021-07- No [id number] 100mg Take 20 mL Univers monohydrate 08-22- by mouth ity of 25 mg/5 mL 00:00: 00:00 every 12 [place] oral 00 :00 (twelve) Medical suspension hours. Branch iopamidol 2021-07 No [id number] 75mL 75 mL, Univers (ISOVUE 08-16 Intravenou ity o f 370-500 mL) 23:05: 23:15 s, ONCE, 1 [place] injection 00 :00 dose, On Medica l 75 mL Tue Branch 06/16/22 at 1715, Routine dexamethaso 2021-07 No 10mg 10 mg, Uni vers ne 08-16 Oral, ity of (DECADRON 22:45: 00:58 ONCE, 1 [place] PHOSPHATE) 00 :00 dose, On Medic al injection e Branch 10 mg 06/16/22 at 1645, Routine ipratropium 2021-07 No 6mL 6 mL, Univ ers -albuteroL 08-16 Inhalation it y of (DUONEB) 22:30: 01:45 , ONCE, 1 [place] 0.5 mg-3 00 :00 dose, On Medical mg(2.5 mg [facility] Branch base)/3 mL 06/16/22 nebulizer at 1630, solution 6 Routine mL ketorolac 2021-07 No 30mg 30 mg, Unive rs (TORADOL) 08-16 [...] 125mg 125 mg, Un [place] isolone sod 11 Intravenou it y of succ 06:00: s, [...] 20 at 2300, mL LESLIE NaCl 0.9% 2021-07- No 2000mL at 999 Uni vers (NS) IV 07-29 mL/hr, ity of infusion 04:00: 04:59 Intravenou [place] 2,000 mL 00 :00 s, ONCE, 1 Medic al dose, On Branch Maisha 05/28/22 at 2200, L[place]IE levoFLOXaci 2021-07- No 750mg 750 mg, IV Univers n [...] y
Durat ion of therapy: 72 hours iron-multiv 2021-0 Yes 1{tbl} QD Take 1 [...] 13:21: Medica l 3 mg (6) 51 [facility] risperiDONE 2021-0 Yes .25mg Q.5D Take [...] 13:21: Medica l 3 mg (6) 51 [facility] risperiDONE 2021-0 Yes .25mg Q.5D Take [...] 13:21: Medica l 3 mg (6) 51 [facility] risperiDONE 2021-0 Yes .25mg Q.5D Take [...] 13:21: Medica l 3 mg (6) 51 [facility] risperiDONE 2-0 Yes .25mg Q.5D Take 0.25 [...] 13:21: Medica l 3 mg (6) 51 [facility] risperiDONE 2021-0 Yes .25mg Q.5D Take 0.[address] [facility] (RisperDAL) 9-21 mg by [facility] 0.25 MG 13:21: mouth 2 Medical tablet 51 (two) Center times daily. lactulose 2021-0 Yes 10mL Take 10 [facility] [...] (two) Center times daily as needed. famotidine 2021-0 Yes 40mg QD Take [address] (PEPCID) 40 9-14 by mouth [facility] mg/5 mL (8 00:00: daily. Medic al mg/mL) 00 Center suspension famotidine 2021-0 Yes 40mg QD Take [address] (PEPCID) 40 9-14 by mouth Luke s mg/5 mL (8 00:00: daily. Medic al mg/mL) 00 Center suspension famotidine 2021-0 Yes 40mg QD Take [address] (PEPCID) 40 9-14 by mouth Luke s mg/5 mL (8 00:00: daily. Medic al mg/mL) 00 Center suspension famotidine 2021-0 Yes 40mg QD Take 40 mg [...] 00:00: daily. Medica l 00 Center Abilify Yes 1mL Inject [address] [facility] [...] capsule - by mouth [facility] 00:00: daily. [address] busPIRone 2021-0 Yes 15mg QD Take [address] (BUSPAR) 15 9- by mouth Luke s MG tablet 00:00: daily. Medica l [address] [place] [id number] 0 Yes 1mL Inject [address] [facility] [facility] 9-09 mL [facility] 300 mg sers 00:00: intramuscu Medical [address] [facility] diazePAM 2021-0 Yes 2mg Q.5D Take 2 [...] capsule 03-27 by [facility] 00:00: daily. [address] busPIRone 2021-0 Yes 15mg QD Take [address] (BUSPAR) 15 9-09 by mouth Luke s MG tablet 00:00: daily. Medica l 00 [place] [facility] Yes 1mL Inject [address] [facility] [address] [facility] 9-09 mL [facility] 300 mg sers 00:00: intramuscu Medical 00 [facility]. [place] diazePAM 2021-0 Yes 2mg Q.5D Take 2 [...] capsule - by mouth [facility] 00:00: daily. [address] busPIRone 0 Yes 15mg QD Take [address] (BUSPAR) 15 9-09 by mouth Luke s MG tablet 00:00: daily. Medica [address] 0 Yes 1mL Inject [address] [facility] [address] [facility] 9-09 mL [facility] 300 mg sers 00:00: intramuscu Medical 00 lar. [place] diazePAM 2021-0 Yes 2mg Q.5D Take 2 [...] capsule 03-27 by [facility] 00:00: daily. [address] busPIRone 0 Yes 15mg QD Take [address] (BUSPAR) 15 - by mouth Luke s MG tablet 00:00: daily. Medica [address] Yes 1mL Inject [address] [facility] [facility] 9-09 mL [facility] 300 mg sers 00:00: intramuscu Medical 00 lar. [place] diazePAM 2021-0 Yes 2mg Q.5D Take [address] [facility] (VALIUM) 2 9-09 by mouth 2 [facility] es MG tablet 00:00: (two) Medical 00 times Center daily. risperiDONE 2-0 Yes .5mg Q.25D Take 0.5 C [facility] [...] 00:00: daily. Medica l 00 [place] Abilify Yes 1mL Inject [address] [facility] 03-27 [facility] 300 mg sers 00:00: intramuscu Medical 00 larly. [place] diazePAM Yes 2mg Q.5D Take [address] [facility] (VALIUM) 2 03-27 by mouth 2 [facility] es MG tablet 00:00: (two) Medical 00 [facility]} Q.5D [address] [facility] 200-5 9-08 (two) [facility] mcg/actuati 00:00: times Medic al on inhaler 00 daily. [place] Dulera Yes 2{puff} Q.5D [address] [facility] 200-5 9-08 (two) [facility] mcg/actuati 00:00: times Medic al on inhaler 00 daily. [place] Dulera Yes 2{puff} Q.5D [address] [facility] 200-5 9-08 (two) [facility] mcg/actuati 00:00: times Medic al on inhaler 00 daily. [place] Dulera Yes 2{puff} Q.5D [address] [facility] 200-5 9-08 (two) [facility] mcg/actuati 00:00: times Medic al on inhaler 00 daily. [place] Dulera Yes 2{puff} Q.5D [address] [facility] 200-5 9-08 (two) [facility] mcg/actuati 00:00: times Medic al on inhaler 00 daily. [place] Dulera Yes 2{puff} Q.5D [address] [facility] 200-5 9-08 (two) [facility] mcg/actuati 00:00: times Medic al on inhaler 00 daily. [place] levalbutero Yes SMARTSIG:V [facility] (XOPENEX 03-24 ia Inhaler [facility] es HFA) 45 00:00: Medical mcg/actuati 00 Center on inhaler levalbutero 2022-0 Yes SMARTSIG:V [facility] (XOPENEX 9-06 [...] 45 00:00: Medical mcg/actuati Center on inhaler cetirizine 0 Yes 10mg Take 10 mg [...] Medical 00 night as Center needed. cetirizine 2021-0 Yes 10mg Take [address] (ZyrTEC) 10 9-02 by mouth [facility] MG tablet 00:00: every Medical 00 night as Center needed. cetirizine 2021-0 Yes 10mg Take [address] (ZyrTEC) 10 9-02 by mouth Luke s MG tablet 00:00: every Medical 00 night as Center needed. AZITHROmyci 2022-[address] [facility] 8-23 .5 [facility] (ZITHROMAX) 00:00: Milliliter Medical 200 mg/5 mL 00 (s) By Center suspension Mouth Daily AZITHROmyci 2-[address] [facility] 8-23 .5 [facility] (ZITHROMAX) 00:00: [place] Medical 200 mg/5 mL 00 (s) By Center suspension Mouth Daily AZITHROmyci 2-[address] [facility] 8-23 .5 [facility] (ZITHROMAX) 00:00: [place] Medical 200 mg/5 mL 00 (s) By Center suspension Mouth Daily AZITHROmyci 2-[address] [facility] 8-23 .5 [facility] (ZITHROMAX) 00:00: [place] Medical 200 mg/5 mL 00 (s) By Center suspension Mouth Daily AZITHROmyci 2-[address] [facility] 8-23 .5 [facility] (ZITHROMAX) 00:00: [place] Medical 200 mg/5 mL 00 (s) By Center suspension Mouth Daily AZITHROmyci 2-[address] [facility] (ZITHROMAX) 00:00: [facility] 200 mg/5 mL 00 (s) By Center suspension Mouth Daily triamcinolo 2-0 Yes Apply [facility] (KENALOG) 00:00: daily as Medi cherie 0.1 % 00 needed. Center topical cream hydrocortis 2-0 Yes Q.5D [facility] cream 00:00: 2 (two) [facility] 00 times Center daily. triamcinolo 2-0 Yes [facility] (KENALOG) 00:00: daily as Medi cherie 0.1 % 00 needed. Center topical cream hydrocortis 2-0 Yes Q.5D [facility] 00:00: 2 (two) [facility] 00 times Center daily. triamcinolo 2-0 Yes Apply [facility] [...] (two) Medical 00 times Center daily. EPINEPHrine 2021-0 Yes .3mg 0.[address] [facility] (EpiPen 8-02 [facility]) 0.3 00:00: Medical mg/0.3 mL 00 Center AtIn EPINEPHrine 2-0 Yes .3mg 0.[address] [facility] (EpiPen 8-02 [facility]) 0.3 00:00: Medical mg/0.3 mL 00 Center AtIn EPINEPHrine 2-0 Yes .3mg 0.[address] [facility] (EpiPen 8-02 [facility]) 0.3 00:00: Medical mg/0.3 mL 00 Center AtIn EPINEPHrine 2-0 Yes .3mg 0.[address] [facility] (EpiPen 8-02 [facility]) 0.3 00:00: Medical mg/0.3 mL 00 Center AtIn EPINEPHrine 2021-0 Yes .3mg 0.[address] [facility] (EpiPen 8-02 [facility]) 0.3 00:00: Medical mg/0.3 mL 00 Center AtIn EPINEPHrine 2021-0 Yes .3mg 0.3 mL by U nivers 0.3 mg/0.3 8-02 Intramuscu ity of mL 00:00: lar route [place] injection 00 as needed. [facility] EPINEPHrine 2021-0 Yes .3mg 0.3 mL by U nivers 0.3 mg/0.3 8-02 Intramuscu ity of mL 00:00: lar route [place] injection 00 as needed. [facility] EPINEPHrine 2021-0 Yes .3mg 0.3 mL by U nivers 0.3 mg/0.3 8-02 Intramuscu ity of mL 00:00: lar route [place] injection 00 as needed. [facility] EPINEPHrine 2021-0 Yes .3mg 0.3 mL by U nivers 0.3 mg/0.3 8-02 Intramuscu ity of mL 00:00: lar route [place] injection 00 as needed. [facility] EPINEPHrine 2021-0 Yes .3mg 0.3 mL by U nivers 0.3 mg/0.3 8-02 Intramuscu ity of mL 00:00: lar route [place] injection 00 as needed. [facility] EPINEPHrine 2021-0 Yes .3mg 0.3 mL by U nivers 0.3 mg/0.3 8-02 Intramuscu ity of mL 00:00: lar route [place] injection 00 as needed. [facility] EPINEPHrine 2021-0 Yes .3mg 0.3 mL by U nivers 0.3 mg/0.3 8-02 Intramuscu ity of mL 00:00: lar route [place] injection 00 as needed. [facility] EPINEPHrine 2021-0 Yes .3mg 0.3 mL by U nivers 0.3 mg/0.3 8-02 Intramuscu ity of mL 00:00: lar route [place] injection 00 as needed. [facility] EPINEPHrine 2021-0 Yes .3mg 0.3 mL by U nivers 0.3 mg/0.3 8-02 Intramuscu ity of mL 00:00: lar route [place] injection 00 as needed. [facility] EPINEPHrine 2021-0 Yes .3mg 0.3 mL by U nivers 0.3 mg/0.3 8-02 Intramuscu ity of mL 00:00: lar route [place] injection 00 as needed. [facility] EPINEPHrine 2021-0 Yes .3mg 0.3 mL by U nivers 0.3 mg/0.3 8-02 Intramuscu ity of mL 00:00: lar route [place] injection 00 as needed. [facility] EPINEPHrine 2021-0 Yes .3mg 0.3 mL by U nivers 0.3 mg/0.3 8-02 Intramuscu ity of mL 00:00: lar route [place] injection 00 as needed. [facility] EPINEPHrine 2021-0 Yes .3mg 0.3 mL by U nivers 0.3 mg/0.3 8-02 Intramuscu ity of mL 00:00: lar route [place] injection 00 as needed. [facility] EPINEPHrine 2021-0 Yes .3mg 0.3 mL by U nivers 0.3 mg/0.3 8-02 Intramuscu ity of mL 00:00: lar route [place] injection 00 as needed. [facility] EPINEPHrine 2021-0 Yes .3mg 0.3 mL by U nivers 0.3 mg/0.3 8-02 Intramuscu ity of mL 00:00: lar route [place] injection 00 as needed. [facility] EPINEPHrine 2021-0 Yes .3mg 0.3 mL by U nivers 0.3 mg/0.3 8-02 Intramuscu ity of mL 00:00: lar route [place] injection 00 as needed. [facility] EPINEPHrine 2021-0 Yes .3mg 0.3 mL by U nivers 0.3 mg/0.3 8-02 Intramuscu ity of mL 00:00: lar route [place] injection 00 as needed. [facility] EPINEPHrine 2021-0 Yes .3mg 0.3 mL by U nivers 0.3 mg/0.3 8-02 Intramuscu ity of mL 00:00: lar route [place] injection 00 as needed. [facility] EPINEPHrine 2021-0 Yes .3mg 0.3 mL by U nivers 0.3 mg/0.3 8-02 Intramuscu ity of mL 00:00: lar route [place] injection 00 as needed. [facility] EPINEPHrine 0 Yes .3mg 0.3 mL by U nivers 0.3 mg/0.3 8-02 Intramuscu ity of mL 00:00: lar route [place] injection 00 as needed. [facility] EPINEPHrine 0 Yes .3mg 0.3 mL by U nivers 0.3 mg/0.3 8-02 Intramuscu ity of mL 00:00: lar route [place] injection 00 as needed. [facility] EPINEPHrine 0 Yes .3mg 0.3 mL by U nivers 0.3 mg/0.3 8-02 Intramuscu ity of mL 00:00: lar route [place] injection 00 as needed. [facility] EPINEPHrine 0 Yes .3mg 0.3 mL by U nivers 0.3 mg/0.3 8-02 Intramuscu ity of mL 00:00: lar route [place] injection 00 as needed. [facility] EPINEPHrine 0 Yes .3mg 0.3 mL by U nivers 0.3 mg/0.3 8-02 Intramuscu ity of mL 00:00: lar route [place] injection 00 as needed. [facility] EPINEPHrine 0 Yes .3mg 0.[address] [facility] (EpiPen 8-02 [facility] 0.3 00:00: Medical mg/0.3 mL 00 [facility] Yes 1{tbl} Take [address] [facility] (Qulipta) 6-15 tablet by [facility] 60 mg Tab 00:00: mouth. Medica l 00 [facility] Yes 1{tbl} Take [address] [facility] (Qulipta) 6-15 tablet by [facility] 60 mg Tab 00:00: mouth. Medica l 00 [facility] Yes 1{tbl} Take [address] [facility] (Qulipta) 6-15 tablet by [facility] 60 mg Tab 00:00: mouth. Medica l [facility] Yes 1{tbl} Take [address] [facility] (Qulipta) 6-15 tablet by [facility] 60 mg Tab 00:00: mouth. Medica l [facility] Yes 1{tbl} Take [address] [facility] (Qulipta) 6-15 tablet by [facility] 60 mg Tab 00:00: mouth. Medica l [address] [place] [address] Yes 1{tbl} Take 1 [facility] (QULIPTA) 6-15 tablet by ity o f 60 mg Tab 00:00: mouth [place] 00 daily. [facility] Yes 1{tbl} Take 1 [facility] (QULIPTA) 6-15 tablet by ity o f 60 mg Tab 00:00: mouth [place] 00 daily. [facility] Yes 1{tbl} Take 1 [facility] (QULIPTA) 6-15 tablet by ity o f 60 mg Tab 00:00: mouth [place] 00 daily. [facility] Yes 1{tbl} Take 1 [facility] (QULIPTA) 6-15 tablet by ity o f 60 mg Tab 00:00: mouth [place] 00 daily. [facility] Yes 1{tbl} Take 1 [facility] (QULIPTA) 6-15 tablet by ity o f 60 mg Tab 00:00: mouth [place] 00 daily. [facility] Yes 1{tbl} Take 1 [facility] (QULIPTA) 6-15 tablet by ity o f 60 mg Tab 00:00: mouth [place] 00 daily. [facility] Yes 1{tbl} Take 1 [facility] (QULIPTA) 6-15 tablet by ity o f 60 mg Tab 00:00: mouth [place] 00 daily. [facility] Yes 1{tbl} Take 1 [facility] (QULIPTA) 6-15 tablet by ity o f 60 mg Tab 00:00: mouth [place] 00 daily. [facility] Yes 1{tbl} Take 1 [facility] (QULIPTA) 6-15 tablet by ity o f 60 mg Tab 00:00: mouth [place] 00 daily. [facility] Yes 1{tbl} Take 1 [facility] (QULIPTA) 6-15 tablet by ity o f 60 mg Tab 00:00: mouth [place] 00 daily. [facility] Yes 1{tbl} Take 1 [facility] (QULIPTA) 6-15 tablet by ity o f 60 mg Tab 00:00: mouth [place] 00 daily. Medical [facility] Yes 1{tbl} Take 1 [facility] (QULIPTA) 6-15 tablet by ity o f 60 mg Tab 00:00: mouth [place] 00 daily. Medical [facility] Yes 1{tbl} Take 1 [facility] (QULIPTA) 6-15 tablet by ity o f 60 mg Tab 00:00: mouth [place] 00 daily. Medical [facility] Yes 1{tbl} Take 1 [facility] (QULIPTA) 6-15 tablet by ity o f 60 mg Tab 00:00: mouth [place] 00 daily. [facility] Yes 1{tbl} Take 1 [facility] (QULIPTA) 6-15 tablet by ity o f 60 mg Tab 00:00: mouth [place] 00 daily. Medical [facility] Yes 1{tbl} Take 1 [facility] (QULIPTA) 6-15 tablet by ity o f 60 mg Tab 00:00: mouth [place] 00 daily. Medical [facility] Yes 1{tbl} Take 1 [facility] (QULIPTA) 6-15 tablet by ity o f 60 mg Tab 00:00: mouth [place] 00 daily. Medical [facility] Yes 1{tbl} Take 1 [facility] (QULIPTA) 6-15 tablet by ity o f 60 mg Tab 00:00: mouth [place] 00 daily. Medical [facility] Yes 1{tbl} Take 1 [facility] (QULIPTA) 6-15 tablet by ity o f 60 mg Tab 00:00: mouth [place] 00 daily. Medical [facility] Yes 1{tbl} Take 1 [facility] (QULIPTA) 6-15 tablet by ity o f 60 mg Tab 00:00: mouth [place] 00 daily. Medical [facility] Yes 1{tbl} Take 1 [facility] (QULIPTA) 6-15 tablet by ity o f 60 mg Tab 00:00: mouth [place] 00 daily. Medical [facility] Yes 1{tbl} Take 1 [facility] (QULIPTA) 6-15 tablet by ity o f 60 mg Tab 00:00: mouth [place] 00 daily. Medical [facility] Yes 1{tbl} Take 1 [facility] (QULIPTA) 6-15 tablet by ity o f 60 mg Tab 00:00: mouth [place] 00 daily. Medical [facility] Yes 1{tbl} Take 1 [facility] (QULIPTA) 6-15 tablet by ity o f 60 mg Tab 00:00: mouth [place] 00 daily. Medical [facility] Yes 1{tbl} Take 1 [facility] (QULIPTA) 6-15 tablet by ity o f 60 mg Tab 00:00: mouth [place] 00 daily. Medical [facility] Yes 1{tbl} Take 1 [facility] (QULIPTA) 6-15 tablet by ity o f 60 mg Tab 00:00: mouth [place] 00 daily. Medical [facility] Yes 1{tbl} Take 1 [facility] (QULIPTA) 6-15 tablet by ity o f 60 mg Tab 00:00: mouth [place] 00 daily. Medical [facility] Yes 1{tbl} Take 1 [facility] (QULIPTA) 6-15 tablet by ity o f 60 mg Tab 00:00: mouth [place] 00 daily. Medical [facility] Yes 1{tbl} Take 1 [facility] (QULIPTA) 6-15 tablet by ity o f 60 mg Tab 00:00: mouth [place] 00 daily. Medical [facility] Yes 1{tbl} Take 1 [facility] (QULIPTA) 6-15 tablet by ity o f 60 mg Tab 00:00: mouth [place] 00 daily. Medical [facility] Yes 1{tbl} Take 1 [facility] (QULIPTA) 6-15 tablet by ity o f 60 mg Tab 00:00: mouth [place] 00 daily. Medical [facility] Yes 1{tbl} Take 1 [facility] (QULIPTA) 6-15 tablet by ity o f 60 mg Tab 00:00: mouth [place] 00 daily. Medical [facility] Yes 1{tbl} Take 1 [facility] (QULIPTA) 6-15 tablet by ity o f 60 mg Tab 00:00: mouth [place] 00 daily. Medical [facility] Yes 1{tbl} Take 1 [facility] (QULIPTA) 6-15 tablet by ity o f 60 mg Tab 00:00: mouth [place] 00 daily. Medical [facility] Yes 1{tbl} Take 1 [facility] (QULIPTA) 6-15 tablet by ity o f 60 mg Tab 00:00: mouth [place] 00 daily. Medical [facility] Yes 1{tbl} Take 1 [facility] (QULIPTA) 6-15 tablet by ity o f 60 mg Tab 00:00: mouth [place] 00 daily. Medical [facility] Yes 1{tbl} Take 1 [facility] (QULIPTA) 6-15 tablet by ity o f 60 mg Tab 00:00: mouth [place] 00 daily. Medical [facility] Yes 1{tbl} Take 1 [facility] (QULIPTA) 6-15 tablet by ity o f 60 mg Tab 00:00: mouth [place] 00 daily. Medical [facility] Yes 1{tbl} Take 1 [facility] (QULIPTA) 6-15 tablet by ity o f 60 mg Tab 00:00: mouth [place] 00 daily. Medical [facility] Yes 1{tbl} Take 1 [facility] (QULIPTA) 6-15 tablet by ity o f 60 mg Tab 00:00: mouth [place] 00 daily. Medical [facility] Yes 1{tbl} Take 1 [facility] (QULIPTA) 6-15 tablet by ity o f 60 mg Tab 00:00: mouth [place] 00 daily. Medical [facility] Yes 1{tbl} Take 1 [facility] (QULIPTA) 6-15 tablet by ity o f 60 mg Tab 00:00: mouth [place] 00 daily. Medical [facility] Yes 1{tbl} Take 1 [facility] (QULIPTA) 6-15 tablet by ity o f 60 mg Tab 00:00: mouth [place] 00 daily. Medical [facility] Yes 1{tbl} Take 1 [facility] (QULIPTA) 6-15 tablet by ity o f 60 mg Tab 00:00: mouth [place] 00 daily. [facility] Yes 1{tbl} Take 1 [facility] (QULIPTA) 6-15 tablet by ity o f 60 mg Tab 00:00: mouth [place] 00 daily. [facility] Yes 1{tbl} Take 1 [facility] (QULIPTA) 6-15 tablet by ity o f 60 mg Tab 00:00: mouth [place] 00 daily. [facility] Yes 1{tbl} Take 1 [facility] (QULIPTA) 6-15 tablet by ity o f 60 mg Tab 00:00: mouth [place] 00 daily. [facility] Yes 1{tbl} Take 1 [facility] (QULIPTA) 6-15 tablet by ity o f 60 mg Tab 00:00: mouth [place] 00 daily. [facility] Yes 1{tbl} Take 1 [facility] (QULIPTA) 6-15 tablet by ity o f 60 mg Tab 00:00: mouth [place] 00 daily. [facility] Yes 1{tbl} Take 1 [facility] (QULIPTA) 6-15 tablet by ity o f 60 mg Tab 00:00: mouth [place] 00 daily. [facility] Yes 1{tbl} Take 1 [facility] (QULIPTA) 6-15 tablet by ity o f 60 mg Tab 00:00: mouth [place] 00 daily. [facility] Yes 1{tbl} Take 1 [facility] (QULIPTA) 6-15 tablet by ity o f 60 mg Tab 00:00: mouth [place] 00 daily. [facility] Yes 1{tbl} Take 1 [facility] (QULIPTA) 6-15 tablet by ity o f 60 mg Tab 00:00: mouth [place] 00 daily. [facility] Yes 1{tbl} Take 1 [facility] (QULIPTA) 6-15 tablet by ity o f 60 mg Tab 00:00: mouth [place] 00 daily. [facility] Yes 1{tbl} Take 1 [facility] (QULIPTA) 6-15 tablet by ity o f 60 mg Tab 00:00: mouth [place] 00 daily. [facility] Yes 1{tbl} Take 1 [facility] (QULIPTA) 6-15 tablet by ity o f 60 mg Tab 00:00: mouth [place] 00 daily. Medical [facility] Yes 1{tbl} Take 1 [facility] (QULIPTA) 6-15 tablet by ity o f 60 mg Tab 00:00: mouth [place] 00 daily. Medical [facility] Yes 1{tbl} Take 1 [facility] (QULIPTA) 6-15 tablet by ity o f 60 mg Tab 00:00: mouth [place] 00 daily. Medical [facility] Yes 1{tbl} Take 1 [facility] (QULIPTA) 6-15 tablet by ity o f 60 mg Tab 00:00: mouth [place] 00 daily. Medical [facility] Yes 1{tbl} Take 1 [facility] (QULIPTA) 6-15 tablet by ity o f 60 mg Tab 00:00: mouth [place] 00 daily. Medical [facility] Yes 1{tbl} Take 1 [facility] (QULIPTA) 6-15 tablet by ity o f 60 mg Tab 00:00: mouth [place] 00 daily. Medical [facility] Yes 1{tbl} Take 1 [facility] (QULIPTA) 6-15 tablet by ity o f 60 mg Tab 00:00: mouth [place] 00 daily. Medical [facility] Yes 1{tbl} Take 1 [facility] (QULIPTA) 6-15 tablet by ity o f 60 mg Tab 00:00: mouth [place] 00 daily. [facility] Yes 1{tbl} Take 1 [facility] (QULIPTA) 6-15 tablet by ity o f 60 mg Tab 00:00: mouth [place] 00 daily. Medical [facility] Yes 1{tbl} Take 1 [facility] (QULIPTA) 6-15 tablet by ity o f 60 mg Tab 00:00: mouth [place] 00 daily. Medical [facility] Yes 1{tbl} Take 1 [facility] (QULIPTA) 6-15 tablet by ity o f 60 mg Tab 00:00: mouth [place] 00 daily. Medical [facility] Yes 1{tbl} Take 1 [facility] (QULIPTA) 6-15 tablet by ity o f 60 mg Tab 00:00: mouth [place] 00 daily. Medical [facility] Yes 1{tbl} Take 1 [facility] (QULIPTA) 6-15 tablet by ity o f 60 mg Tab 00:00: mouth [place] 00 daily. Medical [facility] Yes 1{tbl} Take 1 [facility] (QULIPTA) 6-15 tablet by ity o f 60 mg Tab 00:00: mouth [place] 00 daily. Medical [facility] Yes 1{tbl} Take 1 [facility] (QULIPTA) 6-15 tablet by ity o f 60 mg Tab 00:00: mouth [place] 00 daily. Medical [facility] Yes 1{tbl} Take 1 [facility] (QULIPTA) 6-15 tablet by ity o f 60 mg Tab 00:00: mouth [place] 00 daily. Medical [facility] Yes 1{tbl} Take 1 [facility] (QULIPTA) 6-15 tablet by ity o f 60 mg Tab 00:00: mouth [place] 00 daily. Medical [facility] Yes 1{tbl} Take 1 [facility] (QULIPTA) 6-15 tablet by ity o f 60 mg Tab 00:00: mouth [place] 00 daily. Medical [facility] Yes 1{tbl} Take 1 [facility] (QULIPTA) 6-15 tablet by ity o f 60 mg Tab 00:00: mouth [place] 00 daily. Medical [facility] Yes 1{tbl} Take 1 [facility] (QULIPTA) 6-15 tablet by ity o f 60 mg Tab 00:00: mouth [place] 00 daily. Medical [facility] Yes 1{tbl} Take 1 [facility] (QULIPTA) 6-15 tablet by ity o f 60 mg Tab 00:00: mouth [place] 00 daily. [facility] Yes 1{tbl} Take 1 [facility] (QULIPTA) 6-15 tablet by ity o f 60 mg Tab 00:00: mouth [place] 00 daily. [facility] Yes 1{tbl} Take 1 [facility] (QULIPTA) 6-15 tablet by ity o f 60 mg Tab 00:00: mouth [place] 00 daily. [facility] Yes 1{tbl} Take 1 [facility] (QULIPTA) 6-15 tablet by ity o f 60 mg Tab 00:00: mouth [place] 00 daily. [facility] Yes 1{tbl} Take 1 [facility] (QULIPTA) 6-15 tablet by ity o f 60 mg Tab 00:00: mouth [place] 00 daily. [facility] Yes 1{tbl} Take 1 [facility] (QULIPTA) 6-15 tablet by ity o f 60 mg Tab 00:00: mouth [place] 00 daily. [facility] Yes 1{tbl} Take 1 [facility] (QULIPTA) 6-15 tablet by ity o f 60 mg Tab 00:00: mouth [place] 00 daily. [facility] Yes 1{tbl} Take 1 [facility] (QULIPTA) 6-15 tablet by ity o f 60 mg Tab 00:00: mouth [place] 00 daily. [facility] Yes 1{tbl} Take 1 [facility] (QULIPTA) 6-15 tablet by ity o f 60 mg Tab 00:00: mouth [place] 00 daily. [facility] Yes 1{tbl} Take 1 [facility] (QULIPTA) 6-15 tablet by ity o f 60 mg Tab 00:00: mouth [place] 00 daily. [facility] Yes 1{tbl} Take 1 [facility] (QULIPTA) 6-15 tablet by ity o f 60 mg Tab 00:00: mouth [place] 00 daily. [facility] Yes 1{tbl} Take 1 [facility] (QULIPTA) 6-15 tablet by ity o f 60 mg Tab 00:00: mouth [place] 00 daily. Medical [facility] Yes 1{tbl} Take 1 [facility] (QULIPTA) 6-15 tablet by ity o f 60 mg Tab 00:00: mouth [place] 00 daily. Medical [facility] Yes 1{tbl} Take 1 [facility] (QULIPTA) 6-15 tablet by ity o f 60 mg Tab 00:00: mouth [place] 00 daily. Medical [facility] Yes 1{tbl} Take 1 [facility] (QULIPTA) 6-15 tablet by ity o f 60 mg Tab 00:00: mouth [place] 00 daily. [facility] Yes 1{tbl} Take 1 [facility] (QULIPTA) 6-15 tablet by ity o f 60 mg Tab 00:00: mouth [place] 00 daily. Medical [facility] Yes 1{tbl} Take 1 [facility] (QULIPTA) 6-15 tablet by ity o f 60 mg Tab 00:00: mouth [place] 00 daily. Medical [facility] Yes 1{tbl} Take 1 [facility] (QULIPTA) 6-15 tablet by ity o f 60 mg Tab 00:00: mouth [place] 00 daily. Medical [facility] Yes 1{tbl} Take 1 [facility] (QULIPTA) 6-15 tablet by ity o f 60 mg Tab 00:00: mouth [place] 00 daily. Medical [facility] Yes 1{tbl} Take 1 [facility] (QULIPTA) 6-15 tablet by ity o f 60 mg Tab 00:00: mouth [place] 00 daily. Medical [facility] Yes 1{tbl} Take 1 [facility] (QULIPTA) 6-15 tablet by ity o f 60 mg Tab 00:00: mouth [place] 00 daily. Medical [facility] Yes 1{tbl} Take 1 [facility] (QULIPTA) 6-15 tablet by ity o f 60 mg Tab 00:00: mouth [place] 00 daily. Medical [facility] Yes 1{tbl} Take 1 [facility] (QULIPTA) 6-15 tablet by ity o f 60 mg Tab 00:00: mouth [place] 00 daily. Medical [facility] Yes 1{tbl} Take 1 [facility] (QULIPTA) 6-15 tablet by ity o f 60 mg Tab 00:00: mouth [place] 00 daily. Medical [facility] Yes 1{tbl} Take 1 [facility] (QULIPTA) 6-15 tablet by ity o f 60 mg Tab 00:00: mouth [place] 00 daily. [facility] Yes 1{tbl} Take 1 [facility] (QULIPTA) 6-15 tablet by ity o f 60 mg Tab 00:00: mouth [place] 00 daily. [facility] Yes 1{tbl} Take 1 [facility] (QULIPTA) 6-15 tablet by ity o f 60 mg Tab 00:00: mouth [place] 00 daily. Medical [facility] Yes 1{tbl} Take 1 [facility] (QULIPTA) 6-15 tablet by ity o f 60 mg Tab 00:00: mouth [place] 00 daily. Medical [facility] Yes 1{tbl} Take 1 [facility] (QULIPTA) 6-15 tablet by ity o f 60 mg Tab 00:00: mouth [place] 00 daily. [facility] Yes 1{tbl} Take 1 [facility] (QULIPTA) 6-15 tablet by ity o f 60 mg Tab 00:00: mouth [place] 00 daily. [facility] Yes 1{tbl} Take 1 [facility] (QULIPTA) 6-15 tablet by ity o f 60 mg Tab 00:00: mouth [place] 00 daily. Medical [facility] Yes 1{tbl} Take 1 [facility] (QULIPTA) 6-15 tablet by ity o f 60 mg Tab 00:00: mouth [place] 00 daily. [facility] Yes 1{tbl} Take 1 [facility] (QULIPTA) 6-15 tablet by ity o f 60 mg Tab 00:00: mouth [place] 00 daily. Medical [facility] Yes 1{tbl} Take 1 [facility] (QULIPTA) 6-15 tablet by ity o f 60 mg Tab 00:00: mouth [place] 00 daily. [facility] Yes 1{tbl} Take 1 [facility] (QULIPTA) 6-15 tablet by ity o f 60 mg Tab 00:00: mouth [place] 00 daily. [facility] Yes 1{tbl} Take 1 [facility] (QULIPTA) 6-15 tablet by ity o f 60 mg Tab 00:00: mouth [place] 00 daily. [facility] Yes 1{tbl} Take 1 [facility] (QULIPTA) 6-15 tablet by ity o f 60 mg Tab 00:00: mouth [place] 00 daily. [facility] Yes 1{tbl} Take 1 [facility] (QULIPTA) 6-15 tablet by ity o f 60 mg Tab 00:00: mouth [place] 00 daily. [facility] Yes 1{tbl} Take 1 [facility] (QULIPTA) 6-15 tablet by ity o f 60 mg Tab 00:00: mouth [place] 00 daily. [facility] Yes 1{tbl} Take 1 [facility] (QULIPTA) 6-15 tablet by ity o f 60 mg Tab 00:00: mouth [place] 00 daily. [facility] Yes 1{tbl} Take 1 [facility] (QULIPTA) 6-15 tablet by ity o f 60 mg Tab 00:00: mouth [place] 00 daily. [facility] Yes 1{tbl} Take 1 [facility] (QULIPTA) 6-15 tablet by ity o f 60 mg Tab 00:00: mouth [place] 00 daily. [facility] Yes 1{tbl} Take [address] [facility] (Qulipta) 6-15 tablet by [facility] mg Tab 00:00: mouth. Medica l 00 [place] levETIRAcet 3- No 500mg Take [address] [facility] am (KEPPRA) 4-13 04-08 mg by [facility] 100 mg/mL 00:00: 23:59 mouth. Medic al solution 00 :00 [place] levETIRAcet 2021-0 2022- No 500mg Take [address] [facility] am (KEPPRA) 4-13 04-08 mg by [facility] 100 mg/mL 00:00: 23:59 mouth. Medic al solution 00 :00 [place] levETIRAcet 2021-0 2022- No 500mg Take [address] [facility] am (KEPPRA) 4-13 04-08 mg by [facility] 100 mg/mL 00:00: 23:59 mouth. Medic al solution 00 :00 [place] levETIRAcet 2021-0 2022- No 500mg Take [address] [facility] am (KEPPRA) 4-13 04-08 mg by [facility] 100 mg/mL 00:00: 23:59 mouth. Medic al solution 00 :00 [place] levETIRAcet 2021-0 2022- No 500mg Take [address] [facility] am (KEPPRA) 4-13 04-08 mg by [facility] 100 mg/mL 00:00: 23:59 mouth. Medic al solution 00 :00 [place] levETIRAcet 2021-0 2022- No 500mg Take [address] [facility] am (KEPPRA) 4-13 04-08 mg by [facility] 100 mg/mL 00:00: 23:59 mouth. Medic al solution 00 :00 [place] SUMAtriptan 2-0 Yes 20mg [address] [facility] (Imitrex) 2-24 Nasal [facility] 20 00:00: route. Medical mg/actuatio 00 [place] n nasal spray SUMAtriptan 2021-0 Yes 20mg [...] [facility] 20 00:00: route. Medical mg/actuatio 00 [place] n nasal spray SUMAtriptan 2-0 Yes 20mg [address] [facility] (Imitrex) 2-24 [facility]al [facility] 20 00:00: route. Medical mg/actuatio 00 Center n nasal spray SUMAtriptan 2021-0 Yes 20mg [address] [facility] (Imitrex) 2-24 [facility]al [facility] 20 00:00: route. Medical mg/actuatio 00 Center n nasal spray SERTraline 2019-0 Yes [id number] 25mg Take 1 [facility] 25 mg 1-14 tablet by [facility] of tablet 00:00: mouth [place] 00 daily. [facility] SERTraline 2019-0 Yes [id number] 25mg Take 1 [facility] 25 mg 1-14 tablet by [facility] of tablet 00:00: mouth [place] 00 daily. [facility] SERTraline 2020-0 Yes [id number] 25mg Take 1 [facility] 25 mg 1-14 tablet by [facility]y of tablet 00:00: mouth [place] 00 daily. [facility] SERTraline 2020-0 Yes [id number] 25mg Take 1 [facility] 25 mg 1-14 tablet by [facility]y of tablet 00:00: mouth [place] 00 daily. [facility] SERTraline 2020-0 Yes [id number] 25mg Take 1 [facility] 25 mg 1-14 tablet by [facility] of tablet 00:00: mouth [place] 00 daily. [facility] SERTraline 2020-0 Yes [id number] 25mg Take 1 [facility] 25 mg 1-14 tablet by [facility]y of tablet 00:00: mouth [place] 00 daily. [facility] SERTraline 2020-0 Yes [id number] 25mg Take 1 [facility] 25 mg 1-14 tablet by [facility] of tablet 00:00: mouth [place] 00 daily. [facility] SERTraline 2020-0 Yes [id number] 25mg Take 1 [facility] 25 mg 1-14 tablet by [facility]y of tablet 00:00: mouth [place] 00 daily. [facility] SERTraline 2020-0 Yes [id number] 25mg Take 1 [facility] 25 mg 1-14 tablet by [facility]y of tablet 00:00: mouth [place] 00 daily. [facility] SERTraline 2020-0 Yes [id number] 25mg Take 1 [facility] 25 mg 1-14 tablet by [facility]y of tablet 00:00: mouth [place] 00 daily. [facility] SERTraline 2020-0 Yes [id number] 25mg Take 1 [facility] 25 mg 1-14 tablet by [facility]y of tablet 00:00: mouth [place] 00 daily. [facility] SERTraline 2020-0 Yes [id number] 25mg Take 1 [facility] 25 mg 1-14 tablet by [facility]y of tablet 00:00: mouth [place] 00 daily. [facility] SERTraline 2019-0 Yes [id number] 25mg Take 1 [facility] 25 mg 1-14 tablet by [facility]y of tablet 00:00: mouth [place] 00 daily. [facility] SERTraline 2019-0 Yes [id number] 25mg Take 1 [facility] 25 mg 1-14 tablet by [facility]y of tablet 00:00: mouth [place] 00 daily. Medical [facility] SERTraline 2019-0 Yes [id number] 25mg Take 1 [facility] 25 mg 1-14 tablet by [facility]y of tablet 00:00: mouth [place] 00 daily. Medical [facility] SERTraline 2019-0 Yes [id number] 25mg Take 1 [facility] 25 mg 1-14 tablet by [facility]y of tablet 00:00: mouth [place] 00 daily. Medical [facility] SERTraline 2019-0 Yes [id number] 25mg Take 1 [facility] 25 mg 1-14 tablet by [facility]y of tablet 00:00: mouth [place] 00 daily. [facility] SERTraline 2019-0 2021- No [id number] 25mg Take 1 [facility] 25 mg 1-14 12-05 tablet by [facility] tablet 00:00: 00:00 mouth [place] 00 :00 daily. [facility] SERTraline 0 2021- No [id number] 25mg Take 1 [facility] 25 mg 1-14 12-05 tablet by [facility] of tablet 00:00: 00:00 mouth [place] 00 :00 daily. [facility] SERTraline 2019-0 2021- No [id number] 25mg Take 1 [facility] 25 mg 1-14 12-05 tablet by [facility] tablet 00:00: 00:00 mouth [place] 00 :00 daily. [facility] busPIRone 2019-0 Yes [id number] 15mg Take 1 [facility] 15 mg 1-13 tablet by [facility] tablet 00:00: mouth 2 [place] 00 (two) Medical times Branch daily. busPIRone 2020-0 Yes [id number] 15mg Take 1 [facility] 15 mg 1-13 tablet by [facility] of tablet 00:00: mouth 2 [place] 00 (two) Medical times Branch daily. busPIRone 2020-0 Yes [id number] 15mg Take 1 [facility] 15 mg 1-13 tablet by [facility] of tablet 00:00: mouth (two) Medical times Branch daily. busPIRone 2020-0 Yes [id number] 15mg Take 1 [facility] 15 mg 1-13 tablet by [facility] tablet 00:00: mouth (two) Medical times Branch daily. busPIRone 2020-0 Yes [id number] 15mg Take 1 [facility] 15 mg 1-13 tablet by [facility] tablet 00:00: mouth (two) Medical times Branch daily. busPIRone 2020-0 Yes [id number] 15mg Take 1 [facility] 15 mg 1-13 tablet by [facility] of tablet 00:00: mouth (two) Medical times Branch daily. busPIRone 2020-0 Yes [id number] 15mg Take 1 [facility] 15 mg 1-13 tablet by [facility] of tablet 00:00: mouth (two) Medical times Branch daily. busPIRone 2020-0 Yes [id number] 15mg Take 1 [facility] 15 mg 1-13 tablet by [facility] tablet 00:00: mouth (two) Medical times Branch daily. busPIRone 2020-0 Yes [id number] 15mg Take 1 [facility] 15 mg 1-13 tablet by [facility] tablet 00:00: mouth (two) Medical times Branch daily. busPIRone 2020-0 Yes [id number] 15mg Take 1 [facility] 15 mg 1-13 tablet by [facility] tablet 00:00: mouth (two) Medical times Branch daily. busPIRone 2020-0 Yes [id number] 15mg Take 1 [facility] 15 mg 1-13 tablet by [facility] tablet 00:00: mouth (two) Medical times Branch daily. busPIRone 2020-0 Yes [id number] 15mg Take 1 [facility] 15 mg 1-13 tablet by [facility] tablet 00:00: mouth (two) Medical times Branch daily. busPIRone 2020-0 Yes [id number] 15mg Take 1 [facility] 15 mg 1-13 tablet by [facility] tablet 00:00: mouth (two) Medical times Branch daily. busPIRone 2020-0 Yes [id number] 15mg Take 1 [facility] 15 mg 1-13 tablet by [facility] tablet 00:00: mouth (two) Medical times Branch daily. busPIRone 2020-0 Yes [id number] 15mg Take 1 [facility] 15 mg 1-13 tablet by [facility] tablet 00:00: mouth (two) Medical times Branch daily. busPIRone 2020-0 Yes [id number] 15mg Take 1 [facility] 15 mg 1-13 tablet by [facility] tablet 00:00: mouth (two) Medical times Branch daily. busPIRone 2020-0 Yes [id number] 15mg Take 1 [facility] 15 mg 1-13 tablet by [facility] tablet 00:00: mouth (two) Medical times Branch daily. busPIRone 2020-0 Yes [id number] 15mg Take 1 [facility] 15 mg 1-13 tablet by [facility] tablet 00:00: mouth (two) Medical times Branch daily. busPIRone 2020-0 Yes [id number] 15mg Take 1 [facility] 15 mg 1-13 tablet by [facility] tablet 00:00: mouth (two) Medical times Branch daily. busPIRone 2020-0 Yes [id number] 15mg Take 1 [facility] 15 mg 1-13 tablet by [facility] tablet 00:00: mouth (two) Medical times Branch daily. busPIRone 2020-0 Yes [id number] 15mg Take 1 [facility] 15 mg 1-13 tablet by [facility] of tablet 00:00: mouth (two) Medical times Branch daily. busPIRone 2020-0 Yes [id number] 15mg Take 1 [facility] 15 mg 1-13 tablet by [facility] of tablet 00:00: mouth (two) Medical times Branch daily. busPIRone 2020-0 Yes [id number] 15mg Take 1 [facility] 15 mg 1-13 tablet by [facility] of tablet 00:00: mouth (two) Medical times Branch daily. busPIRone 2020-0 Yes [id number] 15mg Take 1 [facility] 15 mg 1-13 tablet by [facility] of tablet 00:00: mouth [place] (two) Medical times Branch daily. busPIRone 2020-0 Yes [id number] 15mg Take 1 [facility] 15 mg 1-13 tablet by [facility] of tablet 00:00: mouth (two) Medical times Branch daily. busPIRone 2020-0 Yes [id number] 15mg Take 1 [facility] 15 mg 1-13 tablet by [facility] of tablet 00:00: mouth (two) Medical times Branch daily. busPIRone 2020-0 Yes [id number] 15mg Take 1 [facility] 15 mg 1-13 tablet by [facility] of tablet 00:00: mouth (two) Medical times Branch daily. busPIRone 2020-0 Yes [id number] 15mg Take 1 [facility] 15 mg 1-13 tablet by [facility] of tablet 00:00: mouth (two) Medical times Branch daily. busPIRone 2020-0 Yes [id number] 15mg Take 1 [facility] 15 mg 1-13 tablet by [facility] of tablet 00:00: mouth (two) Medical times Branch daily. busPIRone 2020-0 Yes [id number] 15mg Take 1 [facility] 15 mg 1-13 tablet by [facility] tablet 00:00: mouth (two) Medical times Branch daily. busPIRone 2020-0 Yes [id number] 15mg Take 1 [facility] 15 mg 1-13 tablet by [facility] tablet 00:00: mouth (two) Medical times Branch daily. busPIRone 2020-0 Yes [id number] 15mg Take 1 [facility] 15 mg 1-13 tablet by [facility] tablet 00:00: mouth (two) Medical times Branch daily. busPIRone 2020-0 Yes [id number] 15mg Take 1 [facility] 15 mg 1-13 tablet by [facility] of tablet 00:00: mouth (two) Medical times Branch daily. busPIRone 2020-0 Yes [id number] 15mg Take 1 [facility] 15 mg 1-13 tablet by [facility] of tablet 00:00: mouth (two) Medical times Branch daily. busPIRone 2020-0 Yes [id number] 15mg Take 1 [facility] 15 mg 1-13 tablet by [facility] of tablet 00:00: mouth (two) Medical times Branch daily. busPIRone 2020-0 Yes [id number] 15mg Take 1 [facility] 15 mg 1-13 tablet by [facility] of tablet 00:00: mouth (two) Medical times Branch daily. busPIRone 2020-0 Yes [id number] 15mg Take 1 [facility] 15 mg 1-13 tablet by [facility] of tablet 00:00: mouth (two) Medical times Branch daily. busPIRone 2020-0 Yes [id number] 15mg Take 1 [facility] 15 mg 1-13 tablet by [facility] tablet 00:00: mouth (two) Medical times Branch daily. busPIRone 2020-0 Yes [id number] 15mg Take 1 [facility] 15 mg 1-13 tablet by [facility] of tablet 00:00: mouth (two) Medical times Branch daily. busPIRone 2020-0 Yes [id number] 15mg Take 1 [facility] 15 mg 1-13 tablet by [facility] tablet 00:00: mouth (two) Medical times Branch daily. busPIRone 2020-0 Yes [id number] 15mg Take 1 [facility] 15 mg 1-13 tablet by [facility] of tablet 00:00: mouth (two) Medical times Branch daily. busPIRone 2020-0 Yes [id number] 15mg Take 1 [facility] 15 mg 1-13 tablet by [facility] tablet 00:00: mouth (two) Medical times Branch daily. busPIRone 2020-0 Yes [id number] 15mg Take 1 [facility] 15 mg 1-13 tablet by [facility] of tablet 00:00: mouth (two) Medical times Branch daily. busPIRone 2020-0 Yes [id number] 15mg Take 1 [facility] 15 mg 1-13 tablet by [facility] of tablet 00:00: mouth (two) Medical times Branch daily. busPIRone 2020-0 Yes [id number] 15mg Take 1 [facility] 15 mg 1-13 tablet by [facility] of tablet 00:00: mouth 2 (two) Medical times Branch daily. busPIRone 2020-0 Yes [id number] 15mg Take 1 [facility] 15 mg 1-13 tablet by [facility] tablet 00:00: mouth (two) Medical times Branch daily. busPIRone 2020-0 Yes [id number] 15mg Take 1 [facility] 15 mg 1-13 tablet by [facility] of tablet 00:00: mouth (two) Medical times Branch daily. busPIRone 2020-0 Yes [id number] 15mg Take 1 [facility] 15 mg 1-13 tablet by [facility] of tablet 00:00: mouth (two) Medical times Branch daily. busPIRone 2020-0 Yes [id number] 15mg Take 1 [facility] 15 mg 1-13 tablet by [facility] of tablet 00:00: mouth (two) Medical times Branch daily. busPIRone 2020-0 Yes [id number] 15mg Take 1 [facility] 15 mg 1-13 tablet by [facility] of tablet 00:00: mouth (two) Medical times Branch daily. busPIRone 2020-0 Yes [id number] 15mg Take 1 [facility] 15 mg 1-13 tablet by [facility] of tablet 00:00: mouth (two) Medical times Branch daily. busPIRone 2020-0 Yes [id number] 15mg Take 1 [facility] 15 mg 1-13 tablet by [facility] of tablet 00:00: mouth (two) Medical times Branch daily. busPIRone 2020-0 Yes [id number] 15mg Take 1 [facility] 15 mg 1-13 tablet by [facility] of tablet 00:00: mouth (two) Medical times Branch daily. busPIRone 2020-0 Yes [id number] 15mg Take 1 [facility] 15 mg 1-13 tablet by [facility] of tablet 00:00: mouth (two) Medical times Branch daily. busPIRone 2020-0 Yes [id number] 15mg Take 1 [facility] 15 mg 1-13 tablet by [facility] of tablet 00:00: mouth (two) Medical times Branch daily. busPIRone 2020-0 Yes [id number] 15mg Take 1 [facility] 15 mg 1-13 tablet by [facility] tablet 00:00: mouth (two) Medical times Branch daily. busPIRone 2020-0 Yes [id number] 15mg Take 1 [facility] 15 mg 1-13 tablet by [facility] tablet 00:00: mouth 2 [place] 00 (two) Medical times Branch daily. busPIRone 2020-0 Yes [id number] 15mg Take 1 [facility] 15 mg 1-13 tablet by [facility] of tablet 00:00: mouth (two) Medical times Branch daily. busPIRone 2020-0 Yes [id number] 15mg Take 1 [facility] 15 mg 1-13 tablet by [facility] of tablet 00:00: mouth (two) Medical times Branch daily. busPIRone 2020-0 Yes [id number] 15mg Take 1 [facility] 15 mg 1-13 tablet by [facility] of tablet 00:00: mouth (two) Medical times Branch daily. busPIRone 2020-0 Yes [id number] 15mg Take 1 [facility] 15 mg 1-13 tablet by [facility] of tablet 00:00: mouth (two) Medical times Branch daily. busPIRone 2020-0 Yes [id number] 15mg Take 1 [facility] 15 mg 1-13 tablet by [facility] of tablet 00:00: mouth (two) Medical times Branch daily. busPIRone 2020-0 Yes [id number] 15mg Take 1 [facility] 15 mg 1-13 tablet by [facility] of tablet 00:00: mouth (two) Medical times Branch daily. busPIRone 2020-0 Yes [id number] 15mg Take 1 [facility] 15 mg 1-13 tablet by [facility] of tablet 00:00: mouth (two) Medical times Branch daily. busPIRone 2020-0 Yes [id number] 15mg Take 1 [facility] 15 mg 1-13 tablet by [facility] of tablet 00:00: mouth (two) Medical times Branch daily. busPIRone 2020-0 Yes [id number] 15mg Take 1 [facility] 15 mg 1-13 tablet by [facility] of tablet 00:00: mouth (two) Medical times Branch daily. busPIRone 2020-0 Yes [id number] 15mg Take 1 [facility] 15 mg 1-13 tablet by [facility] of tablet 00:00: mouth 2 (two) Medical times Branch daily. busPIRone 2020-0 Yes [id number] 15mg Take 1 [facility] 15 mg 1-13 tablet by [facility] of tablet 00:00: mouth 2 (two) Medical times Branch daily. busPIRone 2020-0 Yes [id number] 15mg Take 1 [facility] 15 mg 1-13 tablet by [facility] of tablet 00:00: mouth (two) Medical times Branch daily. busPIRone 2020-0 Yes [id number] 15mg Take 1 [facility] 15 mg 1-13 tablet by [facility] of tablet 00:00: mouth (two) Medical times Branch daily. busPIRone 2020-0 Yes [id number] 15mg Take 1 [facility] 15 mg 1-13 tablet by [facility] of tablet 00:00: mouth (two) Medical times Branch daily. busPIRone 2020-0 Yes [id number] 15mg Take 1 [facility] 15 mg 1-13 tablet by [facility] of tablet 00:00: mouth (two) Medical times Branch daily. busPIRone 2020-0 Yes [id number] 15mg Take 1 [facility] 15 mg 1-13 tablet by [facility] of tablet 00:00: mouth (two) Medical times Branch daily. busPIRone 2020-0 Yes [id number] 15mg Take 1 [facility] 15 mg 1-13 tablet by [facility] of tablet 00:00: mouth [place] (two) Medical times Branch daily. busPIRone 2020-0 Yes [id number] 15mg Take 1 [facility] 15 mg 1-13 tablet by [facility] of tablet 00:00: mouth (two) Medical times Branch daily. busPIRone 2020-0 Yes [id number] 15mg Take 1 [facility] 15 mg 1-13 tablet by [facility] of tablet 00:00: mouth [place] (two) Medical times Branch daily. busPIRone 2020-0 Yes [id number] 15mg Take 1 [facility] 15 mg 1-13 tablet by [facility] of tablet 00:00: mouth (two) Medical times Branch daily. busPIRone 2020-0 Yes [id number] 15mg Take 1 [facility] 15 mg 1-13 tablet by [facility] of tablet 00:00: mouth (two) Medical times Branch daily. busPIRone 2020-0 Yes [id number] 15mg Take 1 [facility] 15 mg 1-13 tablet by [facility] of tablet 00:00: mouth (two) Medical times Branch daily. busPIRone 2020-0 Yes [id number] 15mg Take 1 [facility] 15 mg 1-13 tablet by [facility] of tablet 00:00: mouth (two) Medical times Branch daily. busPIRone 2020-0 Yes [id number] 15mg Take 1 [facility] 15 mg 1-13 tablet by [facility] of tablet 00:00: mouth (two) Medical times Branch daily. busPIRone 2020-0 Yes [id number] 15mg Take 1 [facility] 15 mg 1-13 tablet by [facility] of tablet 00:00: mouth (two) Medical times Branch daily. busPIRone 2020-0 Yes [id number] 15mg Take 1 [facility] 15 mg 1-13 tablet by [facility] of tablet 00:00: mouth (two) Medical times Branch daily. busPIRone 2020-0 Yes [id number] 15mg Take 1 [facility] 15 mg 1-13 tablet by [facility] of tablet 00:00: mouth (two) Medical times Branch daily. busPIRone 2020-0 Yes [id number] 15mg Take 1 [facility] 15 mg 1-13 tablet by [facility] of tablet 00:00: mouth (two) Medical times Branch daily. busPIRone 2020-0 Yes [id number] 15mg Take 1 [facility] 15 mg 1-13 tablet by [facility] of tablet 00:00: mouth (two) Medical times Branch daily. busPIRone 2020-0 Yes [id number] 15mg Take 1 [facility] 15 mg 1-13 tablet by [facility] of tablet 00:00: mouth (two) Medical times Branch daily. busPIRone 2020-0 Yes [id number] 15mg Take 1 [facility] 15 mg 1-13 tablet by [facility] of tablet 00:00: mouth (two) Medical times Branch daily. busPIRone 2020-0 Yes [id number] 15mg Take 1 [facility] 15 mg 1-13 tablet by [facility] of tablet 00:00: mouth (two) Medical times Branch daily. busPIRone 2020-0 Yes [id number] 15mg Take 1 [facility] 15 mg 1-13 tablet by [facility] of tablet 00:00: mouth (two) Medical times Branch daily. busPIRone 2020-0 Yes [id number] 15mg Take 1 [facility] 15 mg 1-13 tablet by [facility] of tablet 00:00: mouth (two) Medical times Branch daily. busPIRone 2020-0 Yes [id number] 15mg Take 1 [facility] 15 mg 1-13 tablet by [facility] of tablet 00:00: mouth (two) Medical times Branch daily. busPIRone 2020-0 Yes [id number] 15mg Take 1 [facility] 15 mg 1-13 tablet by [facility] of tablet 00:00: mouth (two) Medical times Branch daily. busPIRone 2020-0 Yes [id number] 15mg Take 1 [facility] 15 mg 1-13 tablet by [facility] of tablet 00:00: mouth (two) Medical times Branch daily. busPIRone 2020-0 Yes [id number] 15mg Take 1 [facility] 15 mg 1-13 tablet by [facility] of tablet 00:00: mouth (two) Medical times Branch daily. busPIRone 2020-0 Yes [id number] 15mg Take 1 [facility] 15 mg 1-13 tablet by [facility] of tablet 00:00: mouth (two) Medical times Branch daily. busPIRone 2020-0 Yes [id number] 15mg Take 1 [facility] 15 mg 1-13 tablet by [facility] of tablet 00:00: mouth (two) Medical times Branch daily. busPIRone 2020-0 Yes [id number] 15mg Take 1 [facility] 15 mg 1-13 tablet by [facility] of tablet 00:00: mouth (two) Medical times Branch daily. busPIRone 2020-0 Yes [id number] 15mg Take 1 [facility] 15 mg 1-13 tablet by [facility] of tablet 00:00: mouth (two) Medical times Branch daily. busPIRone 2020-0 Yes [id number] 15mg Take 1 [facility] 15 mg 1-13 tablet by [facility] of tablet 00:00: mouth (two) Medical times Branch daily. busPIRone 2020-0 Yes [id number] 15mg Take 1 [facility] 15 mg 1-13 tablet by [facility] of tablet 00:00: mouth (two) Medical times Branch daily. busPIRone 2020-0 Yes [id number] 15mg Take 1 [facility] 15 mg 1-13 tablet by [facility] of tablet 00:00: mouth (two) Medical times Branch daily. busPIRone 2020-0 Yes [id number] 15mg Take 1 [facility] 15 mg 1-13 tablet by [facility] of tablet 00:00: mouth (two) Medical times Branch daily. busPIRone 2020-0 Yes [id number] 15mg Take 1 [facility] 15 mg 1-13 tablet by [facility] of tablet 00:00: mouth (two) Medical times Branch daily. busPIRone 2020-0 Yes [id number] 15mg Take 1 [facility] 15 mg 1-13 tablet by [facility] of tablet 00:00: mouth (two) Medical times Branch daily. busPIRone 2020-0 Yes [id number] 15mg Take 1 [facility] 15 mg 1-13 tablet by [facility] of tablet 00:00: mouth (two) Medical times Branch daily. busPIRone 2020-0 Yes [id number] 15mg Take 1 [facility] 15 mg 1-13 tablet by [facility] of tablet 00:00: mouth [place] (two) Medical times Branch daily. busPIRone 2020-0 Yes [id number] 15mg Take 1 [facility] 15 mg 1-13 tablet by [facility] of tablet 00:00: mouth [place] (two) Medical times Branch daily. busPIRone 2020-0 Yes [id number] 15mg Take 1 [facility] 15 mg 1-13 tablet by [facility] of tablet 00:00: mouth (two) Medical times Branch daily. busPIRone 2020-0 Yes [id number] 15mg Take 1 [facility] 15 mg 1-13 tablet by [facility] of tablet 00:00: mouth [place] (two) Medical times Branch daily. busPIRone 2020-0 Yes [id number] 15mg Take 1 [facility] 15 mg 1-13 tablet by [facility] of tablet 00:00: mouth [place] (two) Medical times Branch daily. busPIRone 2020-0 Yes [id number] 15mg Take 1 [facility] 15 mg 1-13 tablet by [facility] of tablet 00:00: mouth (two) Medical times Branch daily. busPIRone 2020-0 Yes [id number] 15mg Take 1 [facility] 15 mg 1-13 tablet by [facility] of tablet 00:00: mouth (two) Medical times Branch daily. busPIRone 2020-0 Yes [id number] 15mg Take 1 [facility] 15 mg 1-13 tablet by [facility] of tablet 00:00: mouth (two) Medical times Branch daily. busPIRone 2020-0 Yes [id number] 15mg Take 1 [facility] 15 mg 1-13 tablet by [facility] of tablet 00:00: mouth (two) Medical times Branch daily. busPIRone 2020-0 Yes [id number] 15mg Take 1 [facility] 15 mg 1-13 tablet by [facility] of tablet 00:00: mouth (two) Medical times Branch daily. busPIRone 2020-0 Yes [id number] 15mg Take 1 [facility] 15 mg 1-13 tablet by [facility] of tablet 00:00: mouth (two) Medical times Branch daily. busPIRone 2020-0 Yes [id number] 15mg Take 1 [facility] 15 mg 1-13 tablet by [facility] of tablet 00:00: mouth (two) Medical times Branch daily. busPIRone 2020-0 Yes [id number] 15mg Take 1 [facility] 15 mg 1-13 tablet by [facility] of tablet 00:00: mouth (two) Medical times Branch daily. busPIRone 2020-0 Yes [id number] 15mg Take 1 [facility] 15 mg 1-13 tablet by [facility] of tablet 00:00: mouth (two) Medical times Branch daily. busPIRone 2020-0 Yes [id number] 15mg Take 1 [facility] 15 mg 1-13 tablet by [facility] of tablet 00:00: mouth (two) Medical times Branch daily. busPIRone 2020-0 Yes [id number] 15mg Take 1 [facility] 15 mg 1-13 tablet by [facility] of tablet 00:00: mouth (two) Medical times Branch daily. busPIRone 2020-0 Yes [id number] 15mg Take 1 [facility] 15 mg 1-13 tablet by [facility] of tablet 00:00: mouth (two) Medical times Branch daily. busPIRone 2020-0 Yes [id number] 15mg Take 1 [facility] 15 mg 1-13 tablet by [facility] of tablet 00:00: mouth (two) Medical times Branch daily. busPIRone 2020-0 Yes [id number] 15mg Take 1 [facility] 15 mg 1-13 tablet by [facility] of tablet 00:00: mouth (two) Medical times Branch daily. busPIRone 2020-0 Yes [id number] 15mg Take 1 [facility] 15 mg 1-13 tablet by [facility] of tablet 00:00: mouth (two) Medical times Branch daily. busPIRone 2020-0 Yes [id number] 15mg Take 1 [facility] 15 mg 1-13 tablet by [facility] of tablet 00:00: mouth (two) Medical times Branch daily. busPIRone 2020-0 Yes [id number] 15mg Take 1 [facility] 15 mg 1-13 tablet by [facility] of tablet 00:00: mouth (two) Medical times Branch daily. busPIRone 2020-0 Yes [id number] 15mg Take 1 [facility] 15 mg 1-13 tablet by [facility] of tablet 00:00: mouth (two) Medical times Branch daily. busPIRone 2020-0 Yes [id number] 15mg Take 1 [facility] 15 mg 1-13 tablet by [facility] of tablet 00:00: mouth (two) Medical times Branch daily. busPIRone 2020-0 Yes [id number] 15mg Take 1 [facility] 15 mg 1-13 tablet by [facility] of tablet 00:00: mouth (two) Medical times Branch daily. busPIRone 2020-0 Yes [id number] 15mg Take 1 [facility] 15 mg 1-13 tablet by [facility] of tablet 00:00: mouth (two) Medical times Branch daily. busPIRone 2020-0 Yes [id number] 15mg Take 1 [facility] 15 mg 1-13 tablet by [facility] of tablet 00:00: mouth (two) Medical times Branch daily. busPIRone 2020-0 Yes [id number] 15mg Take 1 [facility] 15 mg 1-13 tablet by [facility] of tablet 00:00: mouth (two) Medical times Branch daily. busPIRone 2020-0 Yes [id number] 15mg Take 1 [facility] 15 mg 1-13 tablet by [facility] of tablet 00:00: mouth (two) Medical times Branch daily. busPIRone 2020-0 Yes [id number] 15mg Take 1 [facility] 15 mg 1-13 tablet by [facility] of tablet 00:00: mouth (two) Medical times Branch daily. busPIRone 2020-0 Yes [id number] 15mg Take 1 [facility] 15 mg 1-13 tablet by [facility] of tablet 00:00: mouth (two) Medical times Branch daily. busPIRone 2020-0 Yes [id number] 15mg Take 1 [facility] 15 mg 1-13 tablet by [facility] of tablet 00:00: mouth (two) Medical times Branch daily. busPIRone 2020-0 Yes [id number] 15mg Take 1 [facility] 15 mg 1-13 tablet by [facility] of tablet 00:00: mouth (two) Medical times Branch daily. busPIRone 2020-0 Yes [id number] 15mg Take 1 [facility] 15 mg 1-13 tablet by [facility] of tablet 00:00: mouth (two) Medical times Branch daily. busPIRone 2020-0 Yes [id number] 15mg Take 1 [facility] 15 mg 1-13 tablet by [facility] of tablet 00:00: mouth (two) Medical times Branch daily. busPIRone 2020-0 Yes [id number] 15mg Take 1 [facility] 15 mg 1-13 tablet by [facility] of tablet 00:00: mouth (two) Medical times Branch daily. busPIRone 2020-0 Yes [id number] 15mg Take 1 [facility] 15 mg 1-13 tablet by [facility] of tablet 00:00: mouth (two) Medical times Branch daily. busPIRone 2020-0 Yes [id number] 15mg Take 1 [facility] 15 mg 1-13 tablet by [facility] of tablet 00:00: mouth (two) Medical times Branch daily. busPIRone 2020-0 Yes [id number] 15mg Take 1 [facility] 15 mg 1-13 tablet by [facility] tablet 00:00: mouth (two) Medical times Branch daily. busPIRone 2020-0 Yes [id number] 15mg Take 1 [facility] 15 mg 1-13 tablet by [facility] tablet 00:00: mouth (two) Medical times Branch daily. busPIRone 2020-0 Yes [id number] 15mg Take 1 [facility] 15 mg 1-13 tablet by [facility] tablet 00:00: mouth (two) Medical times Branch daily. busPIRone 2020-0 Yes [id number] 15mg Take 1 [facility] 15 mg 1-13 tablet by [facility] tablet 00:00: mouth (two) Medical times Branch daily. busPIRone 2020-0 Yes [id number] 15mg Take 1 [facility] 15 mg 1-13 tablet by [facility] of tablet 00:00: mouth (two) Medical times Branch daily. busPIRone 2020-0 Yes [id number] 15mg Take 1 [facility] 15 mg 1-13 tablet by [facility] tablet 00:00: mouth (two) Medical times Branch daily. busPIRone 2020-0 Yes [id number] 15mg Take 1 [facility] 15 mg 1-13 tablet by [facility] of tablet 00:00: mouth (two) Medical times Branch daily. busPIRone 2020-0 Yes [id number] 15mg Take 1 [facility] 15 mg 1-13 tablet by [facility] of tablet 00:00: mouth (two) Medical times Branch daily. busPIRone 2020-0 Yes [id number] 15mg Take 1 [facility] 15 mg 1-13 tablet by [facility] of tablet 00:00: mouth (two) Medical times Branch daily. busPIRone 2020-0 Yes [id number] 15mg Take 1 [facility] 15 mg 1-13 tablet by [facility] tablet 00:00: mouth (two) Medical times Branch daily. busPIRone 2020-0 Yes [id number] 15mg Take 1 [facility] 15 mg 1-13 tablet by [facility] of tablet 00:00: mouth 2 (two) Medical times Branch daily. amantadine 2018- Yes [id number] 200mg Take 20 mL [facility] HCl 50 mg/5 0-18 by mouth 2 it y of mL solution 00:00: (two) [place] 00 times Medical daily. Branch amantadine 2018- Yes [id number] 200mg Take 20 mL [facility] HCl 50 mg/5 0-18 by mouth 2 it y of mL solution 00:00: (two) [place] 00 times Medical daily. Branch amantadine 2018- Yes [id number] 200mg Take 20 mL [facility] HCl 50 mg/5 0-18 by mouth 2 it y of mL solution 00:00: (two) [place] 00 times Medical daily. Branch amantadine 2018- Yes [id number] 200mg Take 20 mL [facility] HCl 50 mg/5 0-18 by mouth 2 it y of mL solution 00:00: (two) [place] 00 times Medical daily. Branch amantadine 2018- Yes [id number] 200mg Take 20 mL [facility] HCl 50 mg/5 0-18 by mouth 2 it y of mL solution 00:00: (two) [place] 00 times Medical daily. Branch amantadine 2018- Yes [id number] 200mg Take 20 mL [facility] HCl 50 mg/5 0-18 by mouth 2 it y of mL solution 00:00: (two) [place] 00 times Medical daily. Branch amantadine 2018- Yes [id number] 200mg Take 20 mL [facility] HCl 50 mg/5 0-18 by mouth 2 it y of mL solution 00:00: (two) [place] 00 times Medical daily. Branch amantadine 2018- Yes [id number] 200mg Take 20 mL [facility] HCl 50 mg/5 0-18 by mouth 2 it y of mL solution 00:00: (two) [place] 00 times Medical daily. Branch amantadine 2018- Yes [id number] 200mg Take 20 mL [facility] HCl 50 mg/5 0-18 by mouth 2 it y of mL solution 00:00: (two) [place] 00 times Medical daily. Branch amantadine 2018- Yes [id number] 200mg Take 20 mL [facility] HCl 50 mg/5 0-18 by mouth 2 it y of mL solution 00:00: (two) [place] 00 times Medical daily. Branch amantadine 2018- Yes [id number] 200mg Take 20 mL [facility] HCl 50 mg/5 0-18 by mouth 2 it y of mL solution 00:00: (two) [place] 00 times Medical daily. Branch amantadine 2018-07 Yes [id number] 200mg Take 20 mL [facility] HCl 50 mg/5 0-18 by mouth 2 it y of mL solution 00:00: (two) [place] 00 times Medical daily. Branch amantadine 2018-07 Yes [id number] 200mg Take 20 mL [facility] HCl 50 mg/5 0-18 by mouth 2 it y of mL solution 00:00: (two) [place] 00 times Medical daily. Branch amantadine 2018-07 Yes [id number] 200mg Take 20 mL [facility] HCl 50 mg/5 0-18 by mouth 2 it y of mL solution 00:00: (two) [place] 00 times Medical daily. Branch amantadine 2018-07 Yes [id number] 200mg Take 20 mL [facility] HCl 50 mg/5 0-18 by mouth 2 it y of mL solution 00:00: (two) [place] 00 times Medical daily. Branch amantadine 2018-07 Yes [id number] 200mg Take 20 mL [facility] HCl 50 mg/5 0-18 by mouth 2 it y of mL solution 00:00: (two) [place] 00 times Medical daily. Branch amantadine 2018-07 Yes [id number] 200mg Take 20 mL [facility] HCl 50 mg/5 0-18 by mouth 2 it y of mL solution 00:00: (two) [place] 00 times Medical daily. Branch amantadine 2018-07- No [id number] 200mg Take 20 mL [facility] HCl 50 mg/5 0-18 12-05 by mouth 2 i ty of mL solution 00:00[place] ([place] [facility] daily. [facility] amantadine 2018-07- No [id number] 200mg Take 20 mL [facility] HCl 50 mg/5 0-18 12-05 by mouth 2 i ty of mL solution 00:00: 00:00 (two[place] :[place] [facility] daily. [facility] amantadine 2018-07- No [id number] 200mg Take 20 mL [facility] HCl 50 mg/5 0-18 12-05 by mouth 2 i ty of mL solution 00:00: 00:00 (two[place] :[place] [facility] daily. [facility] risperiDONE 2018-07 Yes [id number] .5mg Take 2 [facility] (RISPERDAL) 0-16 tablets by it y of 0.25 mg 00:00: mouth 2 [place] tablet 00 (two) Medical times Branch daily. AM/PM risperiDONE 2018-07 Yes [id number] .5mg Take 2 [facility] (RISPERDAL) 0-16 tablets by it y of 0.25 mg 00:00: mouth 2 [place] tablet 00 (two) Medical times Branch daily. AM/PM risperiDONE 2018-07 Yes [id number] .5mg Take 2 [facility] (RISPERDAL) 0-16 tablets by it y of 0.25 mg 00:00: mouth 2 [place] tablet 00 (two) Medical times Branch daily. AM/PM risperiDONE 2018-07 Yes [id number] .5mg Take 2 [facility] (RISPERDAL) 0-16 tablets by it y of 0.25 mg 00:00: mouth 2 [place] tablet 00 (two) Medical times Branch daily. AM/PM risperiDONE 2018-07 Yes [id number] .5mg Take 2 [facility] (RISPERDAL) 0-16 tablets by it y of 0.25 mg 00:00: mouth 2 [place] tablet 00 (two) Medical times Branch daily. AM/PM risperiDONE 2018-07 Yes [id number] .5mg Take 2 [facility] (RISPERDAL) 0-16 tablets by it y of 0.25 mg 00:00: mouth 2 [place] tablet 00 (two) Medical times Branch daily. AM/PM risperiDONE 2018-07 Yes [id number] .5mg Take 2 [facility] (RISPERDAL) 0-16 tablets by it y of 0.25 mg 00:00: mouth 2 [place] tablet 00 (two) Medical times Branch daily. AM/PM amantadine 2018-07 Yes [id number] 200mg Take 2 [facility] HCl 100 mg 0-15 capsules ity o f capsule 00:00: by mouth 2 [place] 00 (two) Medical times Branch daily. ARIPiprazol 2018-07 Yes [id number] 2mg Take 1 [facility] e (ABILIFY) 0-15 tablet by ity of 2 mg tablet 00:00: mouth [place] 00 daily. Medical Branch amantadine 2018-07 Yes [id number] 200mg Take 2 [facility] HCl 100 mg 0-15 capsules ity o f capsule 00:00: by mouth 2 [place] 00 (two) Medical times Branch daily. ARIPiprazol 2018-07 Yes [id number] 2mg Take 1 [facility] e (ABILIFY) 0-15 tablet by ity of 2 mg tablet 00:00: mouth daily. Medical Branch amantadine 2018-07 Yes [id number] 200mg Take 2 [facility] HCl 100 mg 0-15 capsules ity o f capsule 00:00: by mouth 2 [place] 00 (two) Medical times Branch daily. ARIPiprazol 2018-07 Yes [id number] 2mg Take 1 [facility] e (ABILIFY) 0-15 tablet by ity of 2 mg tablet 00:00: mouth daily. Medical Branch amantadine 2018-07 Yes [id number] 200mg Take 2 [facility] HCl 100 mg 0-15 capsules ity o f capsule 00:00: by mouth 2 [place] 00 (two) Medical times Branch daily. amantadine 2018-07 Yes [id number] 200mg Take 2 [facility] HCl 100 mg 0-15 capsules ity o f capsule 00:00: by mouth 2 [place] 00 (two) Medical times Branch daily. amantadine 2018-07 Yes [id number] 200mg Take 2 [facility] HCl 100 mg 0-15 capsules ity o f capsule 00:00: by mouth 2 [place] 00 (two) Medical times Branch daily. amantadine 2018-07 Yes [id number] 200mg Take 2 [facility] HCl 100 mg 0-15 capsules ity o f capsule 00:00: by mouth 2 [place] 00 (two) Medical times Branch daily. amantadine 2018-07 Yes [id number] 200mg Take 2 [facility] HCl 100 mg 0-15 capsules ity o f capsule 00:00: by mouth 2 [place] 00 (two) Medical times Branch daily. amantadine 2018-07 Yes [id number] 200mg Take 2 [facility] HCl 100 mg 0-15 capsules ity o f capsule 00:00: by mouth 2 [place] 00 (two) Medical times Branch daily. amantadine 2018-07 Yes [id number] 200mg Take 2 [facility] HCl 100 mg 0-15 capsules ity o f capsule 00:00: by mouth 2 [place] 00 (two) Medical times Branch daily. amantadine 2018-07 Yes [id number] 200mg Take 2 [facility] HCl 100 mg 0-15 capsules ity o f capsule 00:00: by mouth 2 [place] 00 (two) Medical times Branch daily. amantadine 2018-07 Yes [id number] 200mg Take 2 [facility] HCl 100 mg 0-15 capsules ity o f capsule 00:00: by mouth 2 [place] 00 (two) Medical times Branch daily. amantadine 2018-07 Yes [id number] 200mg Take 2 [facility] HCl 100 mg 0-15 capsules ity o f capsule 00:00: by mouth 2 [place] 00 (two) Medical times Branch daily. amantadine 2018-07 Yes [id number] 200mg Take 2 [facility] HCl 100 mg 0-15 capsules ity o f capsule 00:00: by mouth 2 [place] 00 (two) Medical times Branch daily. amantadine 2018-07 Yes [id number] 200mg Take 2 [facility] HCl 100 mg 0-15 capsules ity o f capsule 00:00: by mouth 2 [place] 00 (two) Medical times Branch daily. amantadine 2018-07 Yes [id number] 200mg Take 2 [facility] HCl 100 mg 0-15 capsules ity o f capsule 00:00: by mouth 2 [place] 00 (two) Medical times Branch daily. amantadine 2018-07 Yes [id number] 200mg Take 2 [facility] HCl 100 mg 0-15 capsules ity o f capsule 00:00: by mouth 2 [place] 00 (two) Medical times Branch daily. amantadine 2018-07 Yes [id number] 200mg Take 2 [facility] HCl 100 mg 0-15 capsules ity o f capsule 00:00: by mouth 2 [place] 00 (two) Medical times Branch daily. amantadine 2018-07 Yes [id number] 200mg Take 2 [facility] HCl 100 mg 0-15 capsules ity o f capsule 00:00: by mouth 2 [place] 00 (two) Medical times Branch daily. amantadine 2018-07 Yes [id number] 200mg Take 2 [facility] HCl 100 mg 0-15 capsules ity o f capsule 00:00: by mouth 2 [place] 00 (two) Medical times Branch daily. amantadine 2018-07 Yes [id number] 200mg Take 2 [facility] HCl 100 mg 0-15 capsules ity o f capsule 00:00: by mouth 2 [place] 00 (two) Medical times Branch daily. ARIPiprazol 2018-07 Yes [id number] 2mg Take 1 [facility] e (ABILIFY) 0-15 tablet by ity of 2 mg tablet 00:00: mouth [place] 00 daily. Medical Branch amantadine 2018-07 Yes [id number] 200mg Take 2 [facility] HCl 100 mg 0-15 capsules ity o f capsule 00:00: by mouth 2 [place] 00 (two) Medical times Branch daily. ARIPiprazol 2018-07 Yes [id number] 2mg Take 1 [facility] e (ABILIFY) 0-15 tablet by ity of 2 mg tablet 00:00: mouth [place] 00 daily. Medical Branch amantadine 2018-07 Yes [id number] 200mg Take 2 [facility] HCl 100 mg 0-15 capsules ity o f capsule 00:00: by mouth 2 [place] 00 (two) Medical times Branch daily. ARIPiprazol 2018-07 Yes [id number] 2mg Take 1 [facility] e (ABILIFY) 0-15 tablet by ity of 2 mg tablet 00:00: mouth [place] 00 daily. [facility] Branch amantadine 2018-07 Yes [id number] 200mg Take 2 [facility] HCl 100 mg 0-15 capsules ity o f capsule 00:00: by mouth 2 [place] 00 (two) Medical times Branch daily. ARIPiprazol 2018-07 Yes [id number] 2mg Take 1 [facility] e (ABILIFY) 0-15 tablet by ity of 2 mg tablet 00:00: mouth [place] 00 daily. [facility] Branch amantadine 2018-07 Yes [id number] 200mg Take 2 [facility] HCl 100 mg 0-15 capsules ity o f capsule 00:00: by mouth 2 [place] 00 (two) Medical times Branch daily. ARIPiprazol 2018-07 Yes [id number] 2mg Take 1 [facility] e (ABILIFY) 0-15 tablet by ity of 2 mg tablet 00:00: mouth [place] 00 daily. [facility] Branch amantadine 2018-07 Yes [id number] 200mg Take 2 [facility] HCl 100 mg 0-15 capsules ity o f capsule 00:00: by mouth 2 [place] 00 (two) Medical times Branch daily. ARIPiprazol 2018-07 Yes [id number] 2mg Take 1 [facility] e (ABILIFY) 0-15 tablet by ity of 2 mg tablet 00:00: mouth [place] 00 daily. [facility] Branch amantadine 2018-07 Yes [id number] 200mg Take 2 [facility] HCl 100 mg 0-15 capsules ity o f capsule 00:00: by mouth 2 [place] 00 (two) Medical times Branch daily. ARIPiprazol 2018-07 Yes [id number] 2mg Take 1 [facility] e (ABILIFY) 0-15 tablet by ity of 2 mg tablet 00:00: mouth [place] 00 daily. [facility] Branch amantadine 2018-07 Yes [id number] 200mg Take 2 [facility] HCl 100 mg 0-15 capsules ity o f capsule 00:00: by mouth 2 [place] 00 (two) Medical times Branch daily. ARIPiprazol 2018-07 Yes [id number] 2mg Take 1 [facility] e (ABILIFY) 0-15 tablet by ity of 2 mg tablet 00:00: mouth [place] 00 daily. [facility] Branch amantadine 2018-07 Yes [id number] 200mg Take 2 [facility] HCl 100 mg 0-15 capsules ity o f capsule 00:00: by mouth 2 [place] 00 (two) Medical times Branch daily. ARIPiprazol 2018-07 Yes [id number] 2mg Take 1 [facility] e (ABILIFY) 0-15 tablet by ity of 2 mg tablet 00:00: mouth [place] 00 daily. [facility] amantadine 2018-07 Yes [id number] 200mg Take 2 [facility] HCl 100 mg 0-15 capsules ity o f capsule 00:00: by mouth 2 [place] 00 (two) Medical times Branch daily. ARIPiprazol 2018-07 Yes [id number] 2mg Take 1 [facility] e (ABILIFY) 0-15 tablet by ity of 2 mg tablet 00:00: mouth [place] 00 daily. [facility] Branch amantadine 2018-07 Yes [id number] 200mg Take 2 [facility] HCl 100 mg 0-15 capsules ity o f capsule 00:00: by mouth 2 [place] 00 (two) Medical times Branch daily. ARIPiprazol 2018-07 Yes [id number] 2mg Take 1 [facility] e (ABILIFY) 0-15 tablet by ity of 2 mg tablet 00:00: mouth [place] 00 daily. [facility] Branch amantadine 2018-07 Yes [id number] 200mg Take 2 [facility] HCl 100 mg 0-15 capsules ity o f capsule 00:00: by mouth 2 [place] 00 (two) Medical times Branch daily. ARIPiprazol 2018-07 Yes [id number] 2mg Take 1 [facility] e (ABILIFY) 0-15 tablet by ity of 2 mg tablet 00:00: mouth [place] 00 daily. Medical Branch amantadine 2018-07 Yes [id number] 200mg Take 2 [facility] HCl 100 mg 0-15 capsules ity o f capsule 00:00: by mouth 2 [place] 00 (two) Medical times Branch daily. ARIPiprazol 2018-07 Yes [id number] 2mg Take 1 [facility] e (ABILIFY) 0-15 tablet by ity of 2 mg tablet 00:00: mouth [place] 00 daily. Medical Branch amantadine 2018-07 Yes [id number] 200mg Take 2 [facility] HCl 100 mg 0-15 capsules ity o f capsule 00:00: by mouth 2 [place] 00 (two) Medical times Branch daily. ARIPiprazol 2018-07 Yes [id number] 2mg Take 1 [facility] e (ABILIFY) 0-15 tablet by ity of 2 mg tablet 00:00: mouth [place] 00 daily. Medical Branch amantadine 2018-07- No [id number] 200mg Take 2 [facility] HCl 100 mg 0-15 01-31 capsules ity of capsule 00:00: 00:00 by mouth 2 [place] 00 :00 (two) Medical times Branch daily. amantadine 2018-07- No [id number] 200mg Take 2 [facility] HCl 100 mg 0-15 01-31 capsules ity of capsule 00:00: 00:00 by mouth 2 [place] 00 :00 (two) Medical times Branch daily. amantadine 2018-07- No [id number] 200mg Take 2 [facility] HCl 100 mg 0-15 01-31 capsules ity of capsule 00:00: 00:00 by mouth 2 [place] 00 :00 (two) Medical times Branch daily. amantadine 2018-07- No [id number] 200mg Take 2 [facility] HCl 100 mg 0-15 01-31 capsules ity of capsule 00:00: 00:00 by mouth 2 [place] 00 :00 (two) Medical times Branch daily. ARIPiprazol 2018-07- No [id number] 2mg Take 1 [facility] e (ABILIFY) 0-15 12-05 tablet by it y of 2 mg tablet 00:00: 00:00 mouth [place] 00 :00 daily. Medical Branch ARIPiprazol 2018-07- No [id number] 2mg Take 1 [facility] e (ABILIFY) 0-15 12-05 tablet by it y of 2 mg tablet 00:00: 00:00 mouth [place] 00 :00 daily. Medical Branch ARIPiprazol 2018-07- No [id number] 2mg Take 1 [facility] e (ABILIFY) 0-15 12-05 tablet by it y of 2 mg tablet 00:00: 00:00 mouth [place] 00 :00 daily. Medical Branch SERTraline 2018-07- No [id number] 25mg Take 1 [facility] 25 mg 0-15 01-14 tablet by ity of tablet 00:00: 00:00 mouth [place] 00 :00 daily. Medical Branch XOPENEX HFA 2018-07 Yes [id number] INHALE 2 [facility] 45 0-11 PUFFS BY ity of mcg/actuati 00:00: MOUTH [place] on inhaler 00 EVERY 6 Medica l HOURS Branch NEEDED BEFORE EXERCISE OR FOR WHEEZING/S HORTNESS OF BREATH. XOPENEX HFA 2018-07 Yes [id number] INHALE 2 [facility] 45 0-11 PUFFS BY ity of mcg/actuati 00:00: MOUTH [place] on inhaler 00 EVERY 6 Medica l HOURS Branch NEEDED BEFORE EXERCISE OR FOR WHEEZING/S HORTNESS OF BREATH. XOPENEX HFA 2018-07 Yes [id number] INHALE 2 [facility] 45 0-11 PUFFS BY ity of mcg/actuati 00:00: MOUTH [place] on inhaler 00 EVERY 6 Medica l HOURS Branch NEEDED BEFORE EXERCISE OR FOR WHEEZING/S HORTNESS OF BREATH. XOPENEX HFA 2018-07 Yes [id number] INHALE 2 [facility] 45 0-11 PUFFS BY ity of mcg/actuati 00:00: MOUTH [place] on inhaler 00 EVERY 6 Medica l HOURS Branch NEEDED BEFORE EXERCISE OR FOR WHEEZING/S HORTNESS OF BREATH. XOPENEX HFA 2018-07 Yes [id number] INHALE 2 [facility] 45 0-11 PUFFS BY ity of mcg/actuati 00:00: MOUTH [place] on inhaler 00 EVERY 6 Medica l HOURS Branch NEEDED BEFORE EXERCISE OR FOR WHEEZING/S HORTNESS OF BREATH. XOPENEX HFA 2018-07 Yes [id number] INHALE 2 [facility] 45 0-11 PUFFS BY ity of mcg/actuati 00:00: MOUTH [place] on inhaler 00 EVERY 6 Medica l HOURS Branch NEEDED BEFORE EXERCISE OR FOR WHEEZING/S HORTNESS OF BREATH. XOPENEX HFA 2018- Yes [id number] INHALE 2 [facility] 45 0-11 PUFFS BY ity of mcg/actuati 00:00: MOUTH [place] on inhaler 00 EVERY 6 Medica l HOURS Branch NEEDED BEFORE EXERCISE OR FOR WHEEZING/S HORTNESS OF BREATH. XOPENEX HFA 2018-07 Yes [id number] INHALE 2 [facility] 45 0-11 PUFFS BY ity of mcg/actuati 00:00: MOUTH [place] on inhaler 00 EVERY 6 Medica l HOURS Branch NEEDED BEFORE EXERCISE OR FOR WHEEZING/S HORTNESS OF BREATH. XOPENEX HFA 2018-07 Yes [id number] INHALE 2 [facility] 45 0-11 PUFFS BY ity of mcg/actuati 00:00: MOUTH [place] on inhaler 00 EVERY 6 Medica l HOURS Branch NEEDED BEFORE EXERCISE OR FOR WHEEZING/S HORTNESS OF BREATH. XOPENEX HFA 2018-07 Yes [id number] INHALE 2 [facility] 45 0-11 PUFFS BY ity of mcg/actuati 00:00: MOUTH [place] on inhaler 00 EVERY 6 Medica l HOURS Branch NEEDED BEFORE EXERCISE OR FOR WHEEZING/S HORTNESS OF BREATH. XOPENEX HFA 2018- Yes [id number] INHALE 2 [facility] 45 0-11 PUFFS BY ity of mcg/actuati 00:00: MOUTH [place] on inhaler 00 EVERY 6 Medica l HOURS Branch NEEDED BEFORE EXERCISE OR FOR WHEEZING/S HORTNESS OF BREATH. XOPENEX HFA 2018-07 Yes [id number] INHALE 2 [facility] 45 0-11 PUFFS BY ity of mcg/actuati 00:00: MOUTH [place] on inhaler 00 EVERY 6 Medica l HOURS Branch NEEDED BEFORE EXERCISE OR FOR WHEEZING/S HORTNESS OF BREATH. XOPENEX HFA 2018- Yes [id number] INHALE 2 [facility] 45 0-11 PUFFS BY ity of mcg/actuati 00:00: MOUTH [place] on inhaler 00 EVERY 6 Medica l HOURS Branch NEEDED BEFORE EXERCISE OR FOR WHEEZING/S HORTNESS OF BREATH. XOPENEX HFA 2018-07 Yes [id number] INHALE 2 [facility] 45 0-11 PUFFS BY ity of mcg/actuati 00:00: MOUTH [place] on inhaler 00 EVERY 6 Medica l HOURS Branch NEEDED BEFORE EXERCISE OR FOR WHEEZING/S HORTNESS OF BREATH. XOPENEX HFA 2018-07 Yes [id number] INHALE 2 [facility] 45 0-11 PUFFS BY ity of mcg/actuati 00:00: MOUTH [place] on inhaler 00 EVERY 6 Medica l HOURS Branch NEEDED BEFORE EXERCISE OR FOR WHEEZING/S HORTNESS OF BREATH. XOPENEX HFA 2018-07 Yes [id number] INHALE 2 [facility] 45 0-11 PUFFS BY ity of mcg/actuati 00:00: MOUTH [place] on inhaler 00 EVERY 6 Medica l HOURS Branch NEEDED BEFORE EXERCISE OR FOR WHEEZING/S HORTNESS OF BREATH. XOPENEX HFA 2018-07 Yes [id number] INHALE 2 [facility] 45 0-11 PUFFS BY ity of mcg/actuati 00:00: MOUTH [place] on inhaler 00 EVERY 6 Medica l HOURS Branch NEEDED BEFORE EXERCISE OR FOR WHEEZING/S HORTNESS OF BREATH. XOPENEX HFA 2018-07 Yes [id number] INHALE 2 [facility] 45 0-11 PUFFS BY ity of mcg/actuati 00:00: MOUTH [place] on inhaler 00 EVERY 6 Medica l HOURS Branch NEEDED BEFORE EXERCISE OR FOR WHEEZING/S HORTNESS OF BREATH. XOPENEX HFA 2018-07 Yes [id number] INHALE 2 [facility] 45 0-11 PUFFS BY ity of mcg/actuati 00:00: MOUTH [place] on inhaler 00 EVERY 6 Medica l HOURS Branch NEEDED BEFORE EXERCISE OR FOR WHEEZING/S HORTNESS OF BREATH. XOPENEX HFA 2018-07 Yes [id number] INHALE 2 [facility] 45 0-11 PUFFS BY ity of mcg/actuati 00:00: MOUTH [place] on inhaler 00 EVERY 6 Medica l HOURS Branch NEEDED BEFORE EXERCISE OR FOR WHEEZING/S HORTNESS OF BREATH. XOPENEX HFA 2018-07 Yes [id number] INHALE 2 [facility] 45 0-11 PUFFS BY ity of mcg/actuati 00:00: MOUTH [place] on inhaler 00 EVERY 6 Medica l HOURS Branch NEEDED BEFORE EXERCISE OR FOR WHEEZING/S HORTNESS OF BREATH. XOPENEX A 2018-07 Yes [id number] INHALE 2 [facility] 45 0-11 PUFFS BY ity of mcg/actuati 00:00: MOUTH [place] on inhaler 00 EVERY 6 Medica l HOURS Branch NEEDED BEFORE EXERCISE OR FOR WHEEZING/S HORTNESS OF BREATH. [facility] Yes [id number] INHALE 2 [facility] 45 0-11 PUFFS BY ity of mcg/actuati 00:00: MOUTH [place] on inhaler 00 EVERY 6 Medica l HOURS Branch NEEDED BEFORE EXERCISE OR FOR WHEEZING/S HORTNESS OF BREATH. [facility] [employer] 2018-07 Yes [id number] INHALE 2 [facility] 45 0-11 PUFFS BY ity of mcg/actuati 00:00: MOUTH [place] on inhaler 00 EVERY 6 Medica l HOURS Branch NEEDED BEFORE EXERCISE OR FOR WHEEZING/S HORTNESS OF BREATH. [facility] 2018-07- No [id number] INHALE 2 [facility] 45 0-11 12-29 PUFFS BY ity of mcg/actuati 00:00: 00:00 MOUTH [place] on inhaler 00 :00 EVERY 6 Medica l HOURS Branch NEEDED BEFORE EXERCISE OR FOR WHEEZING/S HORTNESS OF BREATH. [facility] 2018-07- No [id number] INHALE 2 [facility] 45 0-11 12-29 PUFFS BY ity of mcg/actuati 00:00: 00:00 MOUTH [place] on inhaler 00 :00 EVERY 6 Medica l HOURS Branch NEEDED BEFORE EXERCISE OR FOR WHEEZING/S HORTNESS OF BREATH. fluticasone 2018-07 Yes [id number] 2{puff} Inhale 2 [facility] propionate 0-07 Puffs 2 ity of (FLOVENT 00:00: (two) [place] HFA) 110 00 times Medical mcg/actuati daily. Branch on inhaler fluticasone 2018-07 Yes [id number] 2{puff} Inhale 2 [facility] propionate 0-07 Puffs 2 ity of (FLOVENT 00:00: (two) [place] HFA) 110 00 times Medical mcg/actuati daily. Branch on inhaler fluticasone 2018-07 Yes [id number] 2{puff} Inhale 2 [facility] propionate 0-07 Puffs 2 ity of (FLOVENT 00:00: ([facility]) [place] HFA) 110 00 times Medical mcg/actuati daily. Branch on inhaler fluticasone 2018-07 Yes [id number] 2{puff} Inhale 2 [facility] propionate 0-07 Puffs 2 ity of (FLOVENT 00:00: (two) [place] HFA) 110 00 times Medical mcg/actuati daily. Branch on inhaler fluticasone 2018-07 Yes [id number] 2{puff} Inhale 2 [facility] propionate 0-07 Puffs 2 ity of (FLOVENT 00:00: (two) [place] HFA) 110 00 times Medical mcg/actuati daily. Branch on inhaler fluticasone 2018-07 Yes [id number] 2{puff} Inhale 2 [facility] propionate 0-07 Puffs 2 ity of (FLOVENT 00:00: ([facility]) [place] HFA) 110 00 times Medical mcg/actuati daily. Branch on inhaler fluticasone 2018-07 Yes [id number] 2{puff} Inhale 2 [facility] propionate 0-07 Puffs 2 ity of (FLOVENT 00:00: ([facility]) [place] HFA) 110 00 times Medical mcg/actuati daily. Branch on inhaler fluticasone 2018-07 Yes [id number] 2{puff} Inhale 2 [facility] propionate 0-07 Puffs 2 ity of (FLOVENT 00:00: ([facility]) [place] HFA) 110 00 times Medical mcg/actuati daily. Branch on inhaler fluticasone 2018-07 Yes [id number] 2{puff} Inhale 2 [facility] propionate 0-07 Puffs 2 ity of (FLOVENT 00:00: (two) [place] HFA) 110 00 times Medical mcg/actuati daily. Branch on inhaler fluticasone 2018-07 Yes [id number] 2{puff} Inhale 2 [facility] propionate 0-07 Puffs 2 ity of (FLOVENT 00:00: (two) [place] HFA) 110 00 times Medical mcg/actuati daily. Branch on inhaler fluticasone 2018-07 Yes [id number] 2{puff} Inhale 2 [facility] propionate 0-07 Puffs 2 ity of (FLOVENT 00:00: (two) [place] HFA) 110 00 times Medical mcg/actuati daily. Branch on inhaler fluticasone 2018-07 Yes [id number] 2{puff} Inhale 2 [facility] propionate 0-07 Puffs 2 ity of (FLOVENT 00:00: ([facility]) 110 00 times Medical mcg/actuati daily. Branch on inhaler fluticasone 2018-07 Yes [id number] 2{puff} Inhale 2 [facility] propionate 0-07 Puffs 2 ity of (FLOVENT 00:00: ([facility]) 110 00 times Medical mcg/actuati daily. Branch on inhaler fluticasone 2018-07 Yes [id number] 2{puff} Inhale 2 [facility] propionate 0-07 Puffs 2 ity of (FLOVENT 00:00: ([facility]) 110 00 times Medical mcg/actuati daily. Branch on inhaler fluticasone 2018-07 Yes [id number] 2{puff} Inhale 2 [facility] propionate 0-07 Puffs 2 ity of (FLOVENT 00:00: ([facility]) 110 00 times Medical mcg/actuati daily. Branch on inhaler fluticasone 2018-07 Yes [id number] 2{puff} Inhale 2 [facility] propionate 0-07 Puffs 2 ity of (FLOVENT 00:00: ([facility]) 110 00 times Medical mcg/actuati daily. Branch on inhaler fluticasone 2018-07 Yes [id number] 2{puff} Inhale 2 [facility] propionate 0-07 Puffs 2 ity of (FLOVENT 00:00: ([facility]) 110 00 times Medical mcg/actuati daily. Branch on inhaler fluticasone 2018-07- No [id number] 2{puff} Inhale 2 [facility] propionate 0-07 12-05 Puffs 2 ity o f (FLOVENT 00:00: 00:00 ([facility]) 110 00 :00 times Medical mcg/actuati daily. Branch on inhaler fluticasone 2018-07- No [id number] 2{puff} Inhale 2 [facility] propionate 0-07 12-05 Puffs 2 ity o f (FLOVENT 00:00: 00:00 (two) [place] HFA) 110 00 :00 times Medical mcg/actuati daily. Branch on inhaler fluticasone 2018-07- No [id number] 2{puff} Inhale 2 [facility] propionate 0-07 12-05 Puffs 2 ity o f (FLOVENT 00:00: 00:00 (two) [place] HF) 110 00 :00 times Medical mcg/actuati daily. Branch on inhaler lisdexamfet 2018- Yes [id number] 40mg Take 1 [facility] amine 40 mg 9-09 capsule by it y of capsule 00:00: mouth [place] 00 every Medical morning. Branch lisdexamfet 2018- Yes [id number] 40mg Take 1 [facility] amine 40 mg 9-09 capsule by it y of capsule 00:00: mouth [place] 00 every Medical morning. Branch lisdexamfet 2018- Yes [id number] 40mg Take 1 [facility] amine 40 mg 9-09 capsule by it y of capsule 00:00: mouth [place] 00 every Medical morning. Branch lisdexamfet 2018- Yes [id number] 40mg Take 1 [facility] amine 40 mg 9-09 capsule by it y of capsule 00:00: mouth [place] 00 every Medical morning. Branch lisdexamfet Yes [id number] 40mg Take 1 [facility] amine 40 mg 9-09 capsule by it y of capsule 00:00: mouth [place] 00 every Medical morning. Branch lisdexamfet 2018- Yes [id number] 40mg Take 1 [facility] amine 40 mg 9-09 capsule by it y of capsule 00:00: mouth [place] 00 every Medical morning. Branch lisdexamfet 2018-0 Yes [id number] 40mg Take 1 [facility] amine 40 mg 9-09 capsule by it y of capsule 00:00: mouth [place] 00 every Medical morning. Branch lisdexamfet 2018-0 Yes [id number] 40mg Take 1 [facility] amine 40 mg 9-09 capsule by it y of capsule 00:00: mouth [place] 00 every Medical morning. Branch lisdexamfet 2018-0 Yes [id number] 40mg Take 1 [facility] amine 40 mg 9-09 capsule by it y of capsule 00:00: mouth [place] 00 every Medical morning. Branch lisdexamfet 2018- Yes [id number] 40mg Take 1 [facility] amine 40 mg 9-09 capsule by it y of capsule 00:00: mouth [place] 00 every Medical morning. Branch lisdexamfet 2019-0 Yes [id number] 40mg Take 1 [facility] amine 40 mg 9-09 capsule by it y of capsule 00:00: mouth [place] 00 every Medical morning. Branch lisdexamfet 2019-0 Yes [id number] 40mg Take 1 [facility] amine 40 mg 9-09 capsule by it y of capsule 00:00: mouth [place] 00 every Medical morning. Branch lisdexamfet 2019-0 Yes [id number] 40mg Take 1 [facility] amine 40 mg 9-09 capsule by it y of capsule 00:00: mouth [place] 00 every Medical morning. Branch lisdexamfet 2019-0 Yes [id number] 40mg Take 1 [facility] amine 40 mg 9-09 capsule by it y of capsule 00:00: mouth [place] 00 every Medical morning. Branch lisdexamfet 2019-0 Yes [id number] 40mg Take 1 [facility] amine 40 mg 9-09 capsule by it y of capsule 00:00: mouth [place] 00 every Medical morning. Branch lisdexamfet 2019-0 Yes [id number] 40mg Take 1 [facility] amine 40 mg 9-09 capsule by it y of capsule 00:00: mouth [place] 00 every Medical morning. Branch lisdexamfet 2019-0 Yes [id number] 40mg Take 1 [facility] amine 40 mg 9-09 capsule by it y of capsule 00:00: mouth [place] 00 every Medical morning. Branch lisdexamfet 2019-0 Yes [id number] 40mg Take 1 [facility] amine 40 mg 9-09 capsule by it y of capsule 00:00: mouth [place] 00 every Medical morning. Branch lisdexamfet 2019-0 Yes [id number] 40mg Take 1 [facility] amine 40 mg 9-09 capsule by it y of capsule 00:00: mouth [place] 00 every Medical morning. Branch lisdexamfet 2019-0 Yes [id number] 40mg Take 1 [facility] amine 40 mg 9-09 capsule by it y of capsule 00:00: mouth [place] 00 every Medical morning. Branch lisdexamfet 2019-0 Yes [id number] 40mg Take 1 [facility] amine 40 mg 9-09 capsule by it y of capsule 00:00: mouth [place] 00 every Medical morning. Branch lisdexamfet 2019-0 Yes [id number] 40mg Take 1 [facility] amine 40 mg 9-09 capsule by it y of capsule 00:00: mouth [place] 00 every Medical morning. Branch lisdexamfet 2019-0 Yes [id number] 40mg Take 1 [facility] amine 40 mg 9-09 capsule by it y of capsule 00:00: mouth [place] 00 every Medical morning. Branch lisdexamfet 2019-0 Yes [id number] 40mg Take 1 [facility] amine 40 mg 9-09 capsule by it y of capsule 00:00: mouth [place] 00 every Medical morning. Branch lisdexamfet 2019-0 Yes [id number] 40mg Take 1 [facility] amine 40 mg 9-09 capsule by it y of capsule 00:00: mouth [place] 00 every Medical morning. Branch lisdexamfet 2019-0 Yes [id number] 40mg Take 1 [facility] amine 40 mg 9-09 capsule by [facility] y of capsule 00:00: mouth [place] 00 every Medical morning. Branch lisdexamfet 2019-0 Yes [id number] 40mg Take 1 [facility] amine 40 mg 9-09 capsule by it y of capsule 00:00: mouth [place] 00 every Medical morning. [facility] lisdexamfet 2019-0 Yes [id number] 40mg Take 1 [facility] amine 40 mg 9-09 capsule by it y of capsule 00:00: mouth [place] 00 every Medical morning. [facility] lisdexamfet 2019-0 Yes [id number] 40mg Take 1 [facility] amine 40 mg 9-09 capsule by it y of capsule 00:00: mouth [place] 00 every Medical morning. [facility] lisdexamfet 2019-0 Yes [id number] 40mg Take 1 [facility] amine 40 mg 9-09 capsule by [facility] y of capsule 00:00: mouth [place] 00 every Medical morning. [facility] lisdexamfet 2019-0 Yes [id number] 40mg Take 1 [facility] amine 40 mg 9-09 capsule by it y of capsule 00:00: mouth [place] 00 every Medical morning. [facility] lisdexamfet 2019-0 Yes [id number] 40mg Take 1 [facility] amine 40 mg 9-09 capsule by it y of capsule 00:00: mouth [place] 00 every Medical morning. [facility] lisdexamfet 2019-0 Yes [id number] 40mg Take 1 [facility] amine 40 mg 9-09 capsule by it y of capsule 00:00: mouth [place] 00 every Medical morning. [facility] lisdexamfet 2019-0 Yes [id number] 40mg Take 1 [facility] amine 40 mg 9-09 capsule by it y of capsule 00:00: mouth [place] 00 every Medical morning. [facility] lisdexamfet 2019-0 Yes [id number] 40mg Take 1 [facility] amine 40 mg 9-09 capsule by it y of capsule 00:00: mouth [place] 00 every Medical morning. [facility] lisdexamfet 2019-0 Yes [id number] 40mg Take 1 [facility] amine 40 mg 9-09 capsule by it y of capsule 00:00: mouth [place] 00 every Medical morning. [facility] lisdexamfet 2019-0 Yes [id number] 40mg Take 1 [facility] amine 40 mg 9-09 capsule by it y of capsule 00:00: mouth [place] 00 every Medical morning. [facility] lisdexamfet 2019-0 Yes [id number] 40mg Take 1 [facility] amine 40 mg 9-09 capsule by it y of capsule 00:00: mouth [place] 00 every Medical morning. [facility] lisdexamfet 2019-0 Yes [id number] 40mg Take 1 [facility] amine 40 mg 9-09 capsule by [facility] y of capsule 00:00: mouth [place] 00 every Medical morning. [facility] lisdexamfet 2019-0 Yes [id number] 40mg Take 1 [facility] amine 40 mg 9-09 capsule by it y of capsule 00:00: mouth [place] 00 every Medical morning. [facility] lisdexamfet 2019-0 Yes [id number] 40mg Take 1 [facility] amine 40 mg 9-09 capsule by it y of capsule 00:00: mouth [place] 00 every Medical morning. [facility] lisdexamfet 2019-0 Yes [id number] 40mg Take 1 [facility] amine 40 mg 9-09 capsule by it y of capsule 00:00: mouth [place] 00 every Medical morning. [facility] lisdexamfet 2019-0 Yes [id number] 40mg Take 1 [facility] amine 40 mg 9-09 capsule by it y of capsule 00:00: mouth [place] 00 every Medical morning. [facility] lisdexamfet 2019-0 Yes [id number] 40mg Take 1 [facility] amine 40 mg 9-09 capsule by it y of capsule 00:00: mouth [place] 00 every Medical morning. [facility] lisdexamfet 2019-0 Yes [id number] 40mg Take 1 [facility] amine 40 mg 9-09 capsule by [facility] y of capsule 00:00: mouth [place] 00 every Medical morning. [facility] lisdexamfet 2019-0 Yes [id number] 40mg Take 1 [facility] amine 40 mg 9-09 capsule by it y of capsule 00:00: mouth [place] 00 every Medical morning. [facility] lisdexamfet 2019-0 Yes [id number] 40mg Take 1 [facility] amine 40 mg 9-09 capsule by it y of capsule 00:00: mouth [place] 00 every Medical morning. [facility] lisdexamfet 2019-0 Yes [id number] 40mg Take 1 [facility] amine 40 mg 9-09 capsule by it y of capsule 00:00: mouth [place] 00 every Medical morning. [facility] lisdexamfet 2019-0 Yes [id number] 40mg Take 1 [facility] amine 40 mg 9-09 capsule by it y of capsule 00:00: mouth [place] 00 every Medical morning. [facility] lisdexamfet 2019-0 Yes [id number] 40mg Take 1 [facility] amine 40 mg 9-09 capsule by it y of capsule 00:00: mouth [place] 00 every Medical morning. [facility] lisdexamfet 2019-0 Yes [id number] 40mg Take 1 [facility] amine 40 mg 9-09 capsule by it y of capsule 00:00: mouth [place] 00 every Medical morning. [facility] lisdexamfet 2019-0 Yes [id number] 40mg Take 1 [facility] amine 40 mg 9-09 capsule by it y of capsule 00:00: mouth [place] 00 every Medical morning. [facility] lisdexamfet 2019-0 Yes [id number] 40mg Take 1 [facility] amine 40 mg 9-09 capsule by it y of capsule 00:00: mouth [place] 00 every Medical morning. [facility] lisdexamfet 2019-0 Yes [id number] 40mg Take 1 [facility] amine 40 mg 9-09 capsule by it y of capsule 00:00: mouth [place] 00 every Medical morning. [facility] lisdexamfet 2019-0 Yes [id number] 40mg Take 1 [facility] amine 40 mg 9-09 capsule by it y of capsule 00:00: mouth [place] 00 every Medical morning. [facility] lisdexamfet 2019-0 Yes [id number] 40mg Take 1 [facility] amine 40 mg 9-09 capsule by it y of capsule 00:00: mouth [place] 00 every Medical morning. [facility] lisdexamfet 2019-0 Yes [id number] 40mg Take 1 [facility] amine 40 mg 9-09 capsule by it y of capsule 00:00: mouth [place] 00 every Medical morning. [facility] lisdexamfet 2019-0 Yes [id number] 40mg Take 1 [facility] amine 40 mg 9-09 capsule by it y of capsule 00:00: mouth [place] 00 every Medical morning. [facility] lisdexamfet 2019-0 Yes [id number] 40mg Take 1 [facility] amine 40 mg 9-09 capsule by it y of capsule 00:00: mouth [place] 00 every Medical morning. [facility] lisdexamfet 2019-0 Yes [id number] 40mg Take 1 [facility] amine 40 mg 9-09 capsule by it y of capsule 00:00: mouth [place] 00 every Medical morning. [facility] lisdexamfet 2019-0 Yes [id number] 40mg Take 1 [facility] amine 40 mg 9-09 capsule by it y of capsule 00:00: mouth [place] 00 every Medical morning. [facility] lisdexamfet 2019-0 Yes [id number] 40mg Take 1 [facility] amine 40 mg 9-09 capsule by it y of capsule 00:00: mouth [place] 00 every Medical morning. [facility] lisdexamfet 2019-0 Yes [id number] 40mg Take 1 [facility] amine 40 mg 9-09 capsule by it y of capsule 00:00: mouth [place] 00 every Medical morning. [facility] lisdexamfet 2019-0 Yes [id number] 40mg Take 1 [facility] amine 40 mg 9-09 capsule by it y of capsule 00:00: mouth [place] 00 every Medical morning. [facility] lisdexamfet 2019-0 Yes [id number] 40mg Take 1 [facility] amine 40 mg 9-09 capsule by it y of capsule 00:00: mouth [place] 00 every Medical morning. [facility] lisdexamfet 2019-0 Yes [id number] 40mg Take 1 [facility] amine 40 mg 9-09 capsule by it y of capsule 00:00: mouth [place] 00 every Medical morning. [facility] lisdexamfet 2019-0 Yes [id number] 40mg Take 1 [facility] amine 40 mg 9-09 capsule by it y of capsule 00:00: mouth [place] 00 every Medical morning. [facility] lisdexamfet 2019-0 Yes [id number] 40mg Take 1 [facility] amine 40 mg 9-09 capsule by it y of capsule 00:00: mouth [place] 00 every Medical morning. [facility] lisdexamfet 2019-0 Yes [id number] 40mg Take 1 [facility] amine 40 mg 9-09 capsule by it y of capsule 00:00: mouth [place] 00 every Medical morning. [facility] lisdexamfet 2019-0 Yes [id number] 40mg Take 1 [facility] amine 40 mg 9-09 capsule by it y of capsule 00:00: mouth [place] 00 every Medical morning. [facility] lisdexamfet 2019-0 Yes [id number] 40mg Take 1 [facility] amine 40 mg 9-09 capsule by it y of capsule 00:00: mouth [place] 00 every Medical morning. [facility] lisdexamfet 2019-0 Yes [id number] 40mg Take 1 [facility] amine 40 mg 9-09 capsule by it y of capsule 00:00: mouth [place] 00 every Medical morning. [facility] lisdexamfet 2019-0 Yes [id number] 40mg Take 1 [facility] amine 40 mg 9-09 capsule by it y of capsule 00:00: mouth [place] 00 every Medical morning. [facility] lisdexamfet 2019-0 Yes [id number] 40mg Take 1 [facility] amine 40 mg 9-09 capsule by it y of capsule 00:00: mouth [place] 00 every Medical morning. [facility] lisdexamfet 2019-0 Yes [id number] 40mg Take 1 [facility] amine 40 mg 9-09 capsule by it y of capsule 00:00: mouth [place] 00 every Medical morning. [facility] lisdexamfet 2019-0 Yes [id number] 40mg Take 1 [facility] amine 40 mg 9-09 capsule by it y of capsule 00:00: mouth [place] 00 every Medical morning. [facility] lisdexamfet 2019-0 Yes [id number] 40mg Take 1 [facility] amine 40 mg 9-09 capsule by it y of capsule 00:00: mouth [place] 00 every Medical morning. [facility] lisdexamfet 2019-0 Yes [id number] 40mg Take 1 [facility] amine 40 mg 9-09 capsule by it y of capsule 00:00: mouth [place] 00 every Medical morning. [facility] lisdexamfet 2019-0 Yes [id number] 40mg Take 1 [facility] amine 40 mg 9-09 capsule by it y of capsule 00:00: mouth [place] 00 every Medical morning. [facility] lisdexamfet 2019-0 Yes [id number] 40mg Take 1 [facility] amine 40 mg 9-09 capsule by it y of capsule 00:00: mouth [place] 00 every Medical morning. [facility] lisdexamfet 2019-0 Yes [id number] 40mg Take 1 [facility] amine 40 mg 9-09 capsule by it y of capsule 00:00: mouth [place] 00 every Medical morning. [facility] lisdexamfet 2019-0 Yes [id number] 40mg Take 1 [facility] amine 40 mg 9-09 capsule by it y of capsule 00:00: mouth [place] 00 every Medical morning. [facility] lisdexamfet 2019-0 Yes [id number] 40mg Take 1 [facility] amine 40 mg 9-09 capsule by it y of capsule 00:00: mouth [place] 00 every Medical morning. [facility] lisdexamfet 2019-0 Yes [id number] 40mg Take 1 [facility] amine 40 mg 9-09 capsule by it y of capsule 00:00: mouth [place] 00 every Medical morning. [facility] lisdexamfet 2019-0 Yes [id number] 40mg Take 1 [facility] amine 40 mg 9-09 capsule by it y of capsule 00:00: mouth [place] 00 every Medical morning. [facility] lisdexamfet 2019-0 Yes [id number] 40mg Take 1 [facility] amine 40 mg 9-09 capsule by it y of capsule 00:00: mouth [place] 00 every Medical morning. [facility] lisdexamfet 2019-0 Yes [id number] 40mg Take 1 [facility] amine 40 mg 9-09 capsule by it y of capsule 00:00: mouth [place] 00 every Medical morning. [facility] lisdexamfet 2019-0 Yes [id number] 40mg Take 1 [facility] amine 40 mg 9-09 capsule by it y of capsule 00:00: mouth [place] 00 every Medical morning. [facility] lisdexamfet 2019-0 Yes [id number] 40mg Take 1 [facility] amine 40 mg 9-09 capsule by it y of capsule 00:00: mouth [place] 00 every Medical morning. [facility] lisdexamfet 2018-0 Yes [id number] 40mg Take 1 [facility] amine 40 mg 9-09 capsule by it y of capsule 00:00: mouth [place] 00 every Medical morning. [facility] lisdexamfet 2019-0 Yes [id number] 40mg Take 1 [facility] amine 40 mg 9-09 capsule by it y of capsule 00:00: mouth [place] 00 every Medical morning. Branch lisdexamfet 2019-0 Yes [id number] 40mg Take 1 [facility] amine 40 mg 9-09 capsule by it y of capsule 00:00: mouth [place] 00 every Medical morning. [facility] lisdexamfet 2019-0 Yes [id number] 40mg Take 1 [facility] amine 40 mg 9-09 capsule by it y of capsule 00:00: mouth [place] 00 every Medical morning. [facility] lisdexamfet 2019-0 Yes [id number] 40mg Take 1 [facility] amine 40 mg 9-09 capsule by it y of capsule 00:00: mouth [place] 00 every Medical morning. Branch lisdexamfet 2019-0 Yes [id number] 40mg Take 1 [facility] amine 40 mg 9-09 capsule by it y of capsule 00:00: mouth [place] 00 every Medical morning. Branch lisdexamfet 2019-0 Yes [id number] 40mg Take 1 [facility] amine 40 mg 9-09 capsule by it y of capsule 00:00: mouth [place] 00 every Medical morning. Branch lisdexamfet 2019-0 Yes [id number] 40mg Take 1 [facility] amine 40 mg 9-09 capsule by it y of capsule 00:00: mouth [place] 00 every Medical morning. [facility] lisdexamfet 2019-0 Yes [id number] 40mg Take 1 [facility] amine 40 mg 9-09 capsule by it y of capsule 00:00: mouth [place] 00 every Medical morning. Branch lisdexamfet 2019-0 Yes [id number] 40mg Take 1 [facility] amine 40 mg 9-09 capsule by it y of capsule 00:00: mouth [place] 00 every Medical morning. [facility] lisdexamfet 2019-0 Yes [id number] 40mg Take 1 [facility] amine 40 mg 9-09 capsule by it y of capsule 00:00: mouth [place] 00 every Medical morning. Branch lisdexamfet 2019-0 Yes [id number] 40mg Take 1 [facility] amine 40 mg 9-09 capsule by it y of capsule 00:00: mouth [place] 00 every Medical morning. [facility] lisdexamfet 2019-0 Yes [id number] 40mg Take 1 [facility] amine 40 mg 9-09 capsule by it y of capsule 00:00: mouth [place] 00 every Medical morning. Branch lisdexamfet 2019-0 Yes [id number] 40mg Take 1 [facility] amine 40 mg 9-09 capsule by it y of capsule 00:00: mouth [place] 00 every Medical morning. [facility] lisdexamfet 2019-0 Yes [id number] 40mg Take 1 [facility] amine 40 mg 9-09 capsule by it y of capsule 00:00: mouth [place] 00 every Medical morning. Branch lisdexamfet 2019-0 Yes [id number] 40mg Take 1 [facility] amine 40 mg 9-09 capsule by it y of capsule 00:00: mouth [place] 00 every Medical morning. [facility] lisdexamfet 2019-0 Yes [id number] 40mg Take 1 [facility] amine 40 mg 9-09 capsule by it y of capsule 00:00: mouth [place] 00 every Medical morning. Branch lisdexamfet 2019-0 Yes [id number] 40mg Take 1 [facility] amine 40 mg 9-09 capsule by it y of capsule 00:00: mouth [place] 00 every Medical morning. Branch lisdexamfet 2019-0 Yes [id number] 40mg Take 1 [facility] amine 40 mg 9-09 capsule by it y of capsule 00:00: mouth [place] 00 every Medical morning. Branch lisdexamfet 2019-0 Yes [id number] 40mg Take 1 [facility] amine 40 mg 9-09 capsule by it y of capsule 00:00: mouth [place] 00 every Medical morning. Branch lisdexamfet 2019-0 Yes [id number] 40mg Take 1 [facility] amine 40 mg 9-09 capsule by it y of capsule 00:00: mouth [place] 00 every Medical morning. Branch lisdexamfet 2019-0 Yes [id number] 40mg Take 1 [facility] amine 40 mg 9-09 capsule by it y of capsule 00:00: mouth [place] 00 every Medical morning. Branch lisdexamfet 2019-0 Yes [id number] 40mg Take 1 [facility] amine 40 mg 9-09 capsule by it y of capsule 00:00: mouth [place] 00 every Medical morning. Branch lisdexamfet 2019-0 Yes [id number] 40mg Take 1 [facility] amine 40 mg 9-09 capsule by it y of capsule 00:00: mouth [place] 00 every Medical morning. Branch lisdexamfet 2019-0 Yes [id number] 40mg Take 1 [facility] amine 40 mg 9-09 capsule by it y of capsule 00:00: mouth [place] 00 every Medical morning. Branch lisdexamfet 2019-0 Yes [id number] 40mg Take 1 [facility] amine 40 mg 9-09 capsule by it y of capsule 00:00: mouth [place] 00 every Medical morning. Branch lisdexamfet 2019-0 Yes [id number] 40mg Take 1 [facility] amine 40 mg 9-09 capsule by it y of capsule 00:00: mouth [place] 00 every Medical morning. Branch lisdexamfet 2019-0 Yes [id number] 40mg Take 1 [facility] amine 40 mg 9-09 capsule by it y of capsule 00:00: mouth [place] 00 every Medical morning. Branch lisdexamfet 2019-0 Yes [id number] 40mg Take 1 [facility] amine 40 mg 9-09 capsule by it y of capsule 00:00: mouth [place] 00 every Medical morning. Branch lisdexamfet 2019-0 Yes [id number] 40mg Take 1 [facility] amine 40 mg 9-09 capsule by it y of capsule 00:00: mouth [place] 00 every Medical morning. Branch lisdexamfet 2019-0 Yes [id number] 40mg Take 1 [facility] amine 40 mg 9-09 capsule by it y of capsule 00:00: mouth [place] 00 every Medical morning. Branch lisdexamfet 2019-0 Yes [id number] 40mg Take 1 [facility] amine 40 mg 9-09 capsule by it y of capsule 00:00: mouth [place] 00 every Medical morning. Branch lisdexamfet 2019-0 Yes [id number] 40mg Take 1 [facility] amine 40 mg 9-09 capsule by it y of capsule 00:00: mouth [place] 00 every Medical morning. Branch lisdexamfet 2019-0 Yes [id number] 40mg Take 1 [facility] amine 40 mg 9-09 capsule by it y of capsule 00:00: mouth [place] 00 every Medical morning. Branch lisdexamfet 2019-0 Yes [id number] 40mg Take 1 [facility] amine 40 mg 9-09 capsule by it y of capsule 00:00: mouth [place] 00 every Medical morning. Branch lisdexamfet 2019-0 Yes [id number] 40mg Take 1 [facility] amine 40 mg 9-09 capsule by it y of capsule 00:00: mouth [place] 00 every Medical morning. Branch lisdexamfet 2019-0 Yes [id number] 40mg Take 1 [facility] amine 40 mg 9-09 capsule by it y of capsule 00:00: mouth [place] 00 every Medical morning. Branch lisdexamfet 2019-0 Yes [id number] 40mg Take 1 [facility] amine 40 mg 9-09 capsule by it y of capsule 00:00: mouth [place] 00 every Medical morning. Branch lisdexamfet 2019-0 Yes [id number] 40mg Take 1 [facility] amine 40 mg 9-09 capsule by it y of capsule 00:00: mouth [place] 00 every Medical morning. Branch lisdexamfet 2019-0 Yes [id number] 40mg Take 1 [facility] amine 40 mg 9-09 capsule by it y of capsule 00:00: mouth [place] 00 every Medical morning. Branch lisdexamfet 2019-0 Yes [id number] 40mg Take 1 [facility] amine 40 mg 9-09 capsule by it y of capsule 00:00: mouth [place] 00 every Medical morning. Branch lisdexamfet 2019-0 Yes [id number] 40mg Take 1 [facility] amine 40 mg 9-09 capsule by it y of capsule 00:00: mouth [place] 00 every Medical morning. Branch lisdexamfet 2019-0 Yes [id number] 40mg Take 1 [facility] amine 40 mg 9-09 capsule by it y of capsule 00:00: mouth [place] 00 every Medical morning. Branch lisdexamfet 2019-0 Yes [id number] 40mg Take 1 [facility] amine 40 mg 9-09 capsule by it y of capsule 00:00: mouth [place] 00 every Medical morning. Branch lisdexamfet 2019-0 Yes [id number] 40mg Take 1 [facility] amine 40 mg 9-09 capsule by it y of capsule 00:00: mouth [place] 00 every Medical morning. Branch lisdexamfet 2019-0 Yes [id number] 40mg Take 1 [facility] amine 40 mg 9-09 capsule by it y of capsule 00:00: mouth [place] 00 every Medical morning. Branch lisdexamfet 2019-0 Yes [id number] 40mg Take 1 [facility] amine 40 mg 9-09 capsule by it y of capsule 00:00: mouth [place] 00 every Medical morning. Branch lisdexamfet 2019-0 Yes [id number] 40mg Take 1 [facility] amine 40 mg 9-09 capsule by it y of capsule 00:00: mouth [place] 00 every Medical morning. Branch lisdexamfet 2019-0 Yes [id number] 40mg Take 1 [facility] amine 40 mg 9-09 capsule by it y of capsule 00:00: mouth [place] 00 every Medical morning. Branch lisdexamfet 2019-0 Yes [id number] 40mg Take 1 [facility] amine 40 mg 9-09 capsule by it y of capsule 00:00: mouth [place] 00 every Medical morning. Branch lisdexamfet 2019-0 Yes [id number] 40mg Take 1 [facility] amine 40 mg 9-09 capsule by it y of capsule 00:00: mouth [place] 00 every Medical morning. Branch lisdexamfet 2019-0 Yes [id number] 40mg Take 1 [facility] amine 40 mg 9-09 capsule by it y of capsule 00:00: mouth [place] 00 every Medical morning. Branch lisdexamfet 2019-0 Yes [id number] 40mg Take 1 [facility] amine 40 mg 9-09 capsule by it y of capsule 00:00: mouth [place] 00 every Medical morning. Branch lisdexamfet 2019-0 Yes [id number] 40mg Take 1 [facility] amine 40 mg 9-09 capsule by it y of capsule 00:00: mouth [place] 00 every Medical morning. Branch lisdexamfet 2019-0 Yes [id number] 40mg Take 1 [facility] amine 40 mg 9-09 capsule by it y of capsule 00:00: mouth [place] 00 every Medical morning. Branch lisdexamfet 2019-0 Yes [id number] 40mg Take 1 [facility] amine 40 mg 9-09 capsule by it y of capsule 00:00: mouth [place] 00 every Medical morning. Branch lisdexamfet 2019-0 Yes [id number] 40mg Take 1 [facility] amine 40 mg 9-09 capsule by it y of capsule 00:00: mouth [place] 00 every Medical morning. Branch lisdexamfet 2019-0 Yes [id number] 40mg Take 1 [facility] amine 40 mg 9-09 capsule by it y of capsule 00:00: mouth [place] 00 every Medical morning. Branch lisdexamfet 2019-0 Yes [id number] 40mg Take 1 [facility] amine 40 mg 9-09 capsule by it y of capsule 00:00: mouth [place] 00 every Medical morning. Branch lisdexamfet 2019-0 Yes [id number] 40mg Take 1 [facility] amine 40 mg 9-09 capsule by it y of capsule 00:00: mouth [place] 00 every Medical morning. Branch lisdexamfet 2019-0 Yes [id number] 40mg Take 1 [facility] amine 40 mg 9-09 capsule by it y of capsule 00:00: mouth [place] 00 every Medical morning. Branch lisdexamfet 2018-0 Yes [id number] 40mg Take 1 [facility] amine 40 mg 9-09 capsule by it y of capsule 00:00: mouth [place] 00 every Medical morning. Branch lisdexamfet 2019-0 Yes [id number] 40mg Take 1 [facility] amine 40 mg 9-09 capsule by it y of capsule 00:00: mouth [place] 00 every Medical morning. Branch lisdexamfet 2019-0 Yes [id number] 40mg Take 1 [facility] amine 40 mg 9-09 capsule by it y of capsule 00:00: mouth [place] 00 every Medical morning. Branch lisdexamfet 2019-0 Yes [id number] 40mg Take 1 [facility] amine 40 mg 9-09 capsule by it y of capsule 00:00: mouth [place] 00 every Medical morning. Branch lisdexamfet 2019-0 Yes [id number] 40mg Take 1 [facility] amine 40 mg 9-09 capsule by it y of capsule 00:00: mouth [place] 00 every Medical morning. Branch lisdexamfet 2019-0 Yes [id number] 40mg Take 1 [facility] amine 40 mg 9-09 capsule by it y of capsule 00:00: mouth [place] 00 every Medical morning. [place] XOPENEX HFA 2019-0 Yes [id number] INHALE 2 [facility] 45 9-06 PUFFS BY ity of mcg/actuati 00:00: MOUTH [place] on inhaler 00 EVERY 6 Medica l HOURS Branch NEEDED BEFORE EXERCISE OR FOR WHEEZING/S HORTNESS OF BREATH. XOPENEX HFA 2019- Yes [id number] INHALE 2 [facility] 45 9-06 PUFFS BY ity of mcg/actuati 00:00: MOUTH [place] on inhaler 00 EVERY 6 Medica l HOURS Branch NEEDED BEFORE EXERCISE OR FOR WHEEZING/S HORTNESS OF BREATH. XOPENEX HFA 2018- Yes [id number] INHALE 2 [facility] 45 9-06 PUFFS BY ity of mcg/actuati 00:00: MOUTH [place] on inhaler 00 EVERY 6 Medica l HOURS Branch NEEDED BEFORE EXERCISE OR FOR WHEEZING/S HORTNESS OF BREATH. XOPENEX HFA 2018- Yes [id number] INHALE 2 [facility] 45 9-05 PUFFS BY ity of mcg/actuati 00:00: MOUTH [place] on inhaler 00 EVERY 6 Medica l HOURS Branch NEEDED BEFORE EXERCISE OR FOR WHEEZING/S HORTNESS OF BREATH. XOPENEX HFA 2019- No [id number] INHALE 2 [facility] 45 9-05 09-06 PUFFS BY ity of mcg/actuati 00:00: 00:00 MOUTH [place] on inhaler 00 :00 EVERY 6 Medica l HOURS Branch NEEDED BEFORE EXERCISE OR FOR WHEEZING/S HORTNESS OF BREATH. XOPENEX HFA 2018- Yes [id number] INHALE 2 [facility] 45 8-15 PUFFS BY ity of mcg/actuati 00:00: MOUTH [place] on inhaler 00 EVERY 6 Medica l HOURS Branch NEEDED BEFORE EXERCISE OR FOR WHEEZING, SHORTNESS OF BREATH. XOPENEX HFA 2018- Yes [id number] INHALE 2 [facility] 45 8-15 PUFFS BY ity of mcg/actuati 00:00: MOUTH [place] on inhaler 00 EVERY 6 Medica l HOURS Branch NEEDED BEFORE EXERCISE OR FOR WHEEZING, SHORTNESS OF BREATH. XOPENEX HFA 2018- Yes [id number] INHALE 2 [facility] 45 8-15 PUFFS BY ity of mcg/actuati 00:00: MOUTH [place] on inhaler 00 EVERY 6 Medica l HOURS Branch NEEDED BEFORE EXERCISE OR FOR WHEEZING, SHORTNESS OF BREATH. XOPENEX HFA Yes [id number] INHALE 2 [facility] 45 8-15 PUFFS BY ity of mcg/actuati 00:00: MOUTH [place] on inhaler 00 EVERY 6 Medica l HOURS Branch NEEDED BEFORE EXERCISE OR FOR WHEEZING, SHORTNESS OF BREATH. XOPENEX HFA 2019- No [id number] INHALE 2 [facility] 45 8-15 09-04 PUFFS BY ity of mcg/actuati 00:00: 00:00 MOUTH [place] on inhaler 00 :00 EVERY 6 Medica l HOURS Branch NEEDED BEFORE EXERCISE OR FOR WHEEZING, SHORTNESS OF BREATH. amantadine 2018- Yes [id number] 200mg Take 2 [facility] HCl 100 mg 8-14 capsules ity o f capsule 00:00: by mouth 2 [place] 00 (two) Medical times Branch daily. SERTraline Yes [id number] 25mg Take 1 [facility] 25 mg 8-14 tablet by ity of tablet 00:00: mouth [place] 00 daily. Medical Branch ARIPiprazol 2018- Yes [id number] 2mg Take 1 [facility] e (ABILIFY) 8-14 tablet by ity of 2 mg tablet 00:00: mouth [place] 00 daily. Medical Branch busPIRone Yes [id number] 15mg Take 1 [facility] n[facility] 15 mg 8-14 tablet by ity of tablet 00:00: mouth 2 [place] 00 (two) Medical times Branch daily. risperiDONE 2018- Yes [id number] .25mg Take 1-2 [facility] (RISPERDAL) 8-14 tablets by it y of 0.25 mg 00:00: mouth 2 [place] tablet 00 (two) Medical times Branch daily. Take 2 tablets in the morning and 1 tablet at night time amantadine 2018- Yes [id number] 200mg Take 2 [facility] HCl 100 mg 8-14 capsules ity o f capsule 00:00: by mouth 2 [place] 00 (two) Medical times Branch daily. SERTraline 2018- Yes [id number] 25mg Take 1 [facility] n[facility] 25 mg 8-14 tablet by ity of tablet 00:00: mouth [place] 00 daily. Medical Branch ARIPiprazol Yes [id number] 2mg Take 1 [facility] e (ABILIFY) 8-14 tablet by ity of 2 mg tablet 00:00: mouth [place] 00 daily. Medical Branch busPIRone Yes [id number] 15mg Take 1 [facility] nivers 15 mg 8-14 tablet by ity of tablet 00:00: mouth 2 [place] 00 (two) Medical times Branch daily. risperiDONE 2018- Yes [id number] .25mg Take 1-2 [facility] (RISPERDAL) 8-14 tablets by it y of 0.25 mg 00:00: mouth 2 [place] tablet 00 (two) Medical times Branch daily. Take 2 tablets in the morning and 1 tablet at night time amantadine Yes [id number] 200mg Take 2 [facility] HCl 100 mg 8-14 capsules ity o f capsule 00:00: by mouth 2 [place] 00 (two) Medical times Branch daily. SERTraline Yes [id number] 25mg Take 1 [facility] nivers 25 mg 8-14 tablet by ity of tablet 00:00: mouth [place] 00 daily. Medical Branch ARIPiprazol Yes [id number] 2mg Take 1 [facility] e (ABILIFY) 8-14 tablet by ity of 2 mg tablet 00:00: mouth [place] 00 daily. Medical Branch busPIRone Yes [id number] 15mg Take 1 [facility] nivers 15 mg 8-14 tablet by ity of tablet 00:00: mouth 2 [place] 00 (two) Medical times Branch daily. risperiDONE Yes [id number] .25mg Take 1-2 [facility] (RISPERDAL) 8-14 tablets by it y of 0.25 mg 00:00: mouth 2 [place] tablet 00 (two) Medical times Branch daily. Take 2 tablets in the morning and 1 tablet at night time amantadine Yes [id number] 200mg Take 2 [facility] HCl 100 mg 8-14 capsules it[facility] o f capsule 00:00: [place] mouth 2 [place] (two[place] Medical times Branch daily. SERTraline Yes [id number] 25mg Take 1 [facility] n[facility] 25 mg 8-14 tablet by ity of tablet 00:00: mouth [place] 00 daily. Medical Branch ARIPiprazol Yes [id number] 2mg Take 1 [facility] e (ABILIFY) 8-14 tablet by ity of 2 mg tablet 00:00: mouth [place] 00 daily. Medical Branch busPIRone Yes [id number] 15mg Take 1 [facility] n[facility] 15 mg 8-14 tablet by ity of tablet 00:00: mouth 2 [place] 00 (two) Medical times Branch daily. risperiDONE 2018- Yes [id number] .25mg Take 1-2 [facility] (RISPERDAL) 8-14 tablets by it y of 0.25 mg 00:00: mouth 2 [place] tablet 00 (two) Medical times Branch daily. Take 2 tablets in the morning and 1 tablet at night time amantadine 2018- Yes [id number] 200mg Take 2 [facility] HCl 100 mg 8-14 capsules it[facility] o f capsule 00:00: [place] mouth 2 [place] 00 (two) Medical times Branch daily. SERTraline Yes [id number] 25mg Take 1 [facility] 25 mg 8-14 tablet by ity of tablet 00:00: mouth [place] 00 daily. Medical Branch ARIPiprazol Yes [id number] 2mg Take 1 [facility] e (ABILIFY) 8-14 tablet by ity of 2 mg tablet 00:00: mouth [place] 00 daily. Medical Branch busPIRone Yes [id number] 15mg Take 1 [facility] n[facility] 15 mg 8-14 tablet by ity of tablet 00:00: mouth 2 [place] 00 (two) Medical times Branch daily. risperiDONE Yes [id number] .25mg Take 1-2 [facility] (RISPERDAL) 8-14 tablets by it y of 0.25 mg 00:00: mouth 2 [place] tablet 00 (two) Medical times Branch daily. Take 2 tablets in the morning and 1 tablet at night time amantadine Yes [id number] 200mg Take 2 [facility] HCl 100 mg 8-14 capsules it[facility] o f capsule 00:00: by mouth 2 [place] 00 (two) Medical times Branch daily. SERTraline Yes [id number] 25mg Take 1 [facility] 25 mg 8-14 tablet by ity of tablet 00:00: mouth [place] 00 daily. Medical Branch ARIPiprazol Yes [id number] 2mg Take 1 [facility] e (ABILIFY) 8-14 tablet by ity of 2 mg tablet 00:00: mouth [place] 00 daily. Medical Branch busPIRone Yes [id number] 15mg Take 1 [facility] 15 mg 8-14 tablet by ity of tablet 00:00: mouth 2 [place] 00 (two) Medical times Branch daily. risperiDONE 2019- Yes [id number] .25mg Take 1-2 [facility] (RISPERDAL) 8-14 tablets by it y of 0.25 mg 00:00: mouth 2 [place] tablet 00 (two) Medical times Branch daily. Take 2 tablets in the morning and 1 tablet at night time amantadine 2018- Yes [id number] 200mg Take 2 [facility] HCl 100 mg 8-14 capsules it[facility] o f capsule 00:00: by mouth 2 [place] 00 (two) Medical times Branch daily. SERTraline 2018- Yes [id number] 25mg Take 1 [facility] 25 mg 8-14 tablet by ity of tablet 00:00: mouth [place] 00 daily. Medical Branch ARIPiprazol Yes [id number] 2mg Take 1 [facility] e (ABILIFY) 8-14 tablet by ity of 2 mg tablet 00:00: mouth [place] 00 daily. Medical Branch busPIRone Yes [id number] 15mg Take 1 [facility] 15 mg 8-14 tablet by ity of tablet 00:00: mouth 2 [place] 00 (two) Medical times Branch daily. risperiDONE 2018- Yes [id number] .25mg Take 1-2 [facility] (RISPERDAL) 8-14 tablets by it y of 0.25 mg 00:00: mouth 2 [place] tablet 00 (two) Medical times Branch daily. Take 2 tablets in the morning and 1 tablet at night time amantadine 2018- Yes [id number] 200mg Take 2 [facility] HCl 100 mg 8-14 capsules it[facility] o f capsule 00:00: by mouth 2 [place] (two) Medical times Branch daily. SERTraline 2018- Yes [id number] 25mg Take 1 [facility] 25 mg 8-14 tablet by ity of tablet 00:00: mouth [place] 00 daily. Medical Branch ARIPiprazol Yes [id number] 2mg Take 1 [facility] e (ABILIFY) 8-14 tablet by ity of 2 mg tablet 00:00: mouth [place] 00 daily. Medical Branch busPIRone Yes [id number] 15mg Take 1 [facility] 15 mg 8-14 tablet by ity of tablet 00:00: mouth 2 [place] 00 (two) Medical times Branch daily. risperiDONE 2019- Yes [id number] .25mg Take 1-2 [facility] (RISPERDAL) 8-14 tablets by it y of 0.25 mg 00:00: mouth 2 [place] tablet 00 (two) Medical times Branch daily. Take 2 tablets in the morning and 1 tablet at night time amantadine 2019- Yes [id number] 200mg Take 2 [facility] HCl 100 mg 8-14 capsules it[facility] o f capsule 00:00: by mouth 2 [place] 00 (two) Medical times Branch daily. SERTraline 2019- Yes [id number] 25mg Take 1 [facility] 25 mg 8-14 tablet by ity of tablet 00:00: mouth [place] 00 daily. Medical Branch ARIPiprazol 2018- Yes [id number] 2mg Take 1 [facility] e (ABILIFY) 8-14 tablet by ity of 2 mg tablet 00:00: mouth [place] 00 daily. Medical Branch busPIRone Yes [id number] 15mg Take 1 [facility] 15 mg 8-14 tablet by ity of tablet 00:00: mouth 2 [place] 00 (two) Medical times Branch daily. risperiDONE 2018- Yes [id number] .25mg Take 1-2 [facility] (RISPERDAL) 8-14 tablets by it y of 0.25 mg 00:00: mouth 2 [place] tablet 00 (two) Medical times Branch daily. Take 2 tablets in the morning and 1 tablet at night time amantadine 2018- Yes [id number] 200mg Take 2 [facility] HCl 100 mg 8-14 capsules ity o f capsule 00:00: by mouth 2 [place] 00 (two) Medical times Branch daily. SERTraline 2018- Yes [id number] 25mg Take 1 [facility] 25 mg 8-14 tablet by ity of tablet 00:00: mouth [place] 00 daily. Medical Branch ARIPiprazol 2018- Yes [id number] 2mg Take 1 [facility] e (ABILIFY) 8-14 tablet by ity of 2 mg tablet 00:00: mouth [place] 00 daily. Medical Branch busPIRone Yes [id number] 15mg Take 1 [facility] 15 mg 8-14 tablet by ity of tablet 00:00: mouth 2 [place] 00 (two) Medical times Branch daily. risperiDONE 2018- Yes [id number] .25mg Take 1-2 [facility] (RISPERDAL) 8-14 tablets by it y of 0.25 mg 00:00: mouth 2 [place] tablet 00 (two) Medical times Branch daily. Take 2 tablets in the morning and 1 tablet at night time cloNIDine Yes [id number] .1mg Take 1 [place] HCl 8-07 tablet by ity of (KAPVAY) 00:00: mouth at [place] 0.1 mg 00 bedtime. Medical tablet Branch cloNIDine Yes [id number] .1mg Take 1 [place] HCl 8-07 tablet by ity of (KAPVAY) 00:00: mouth at [place] 0.1 mg 00 bedtime. Medical tablet Branch cloNIDine 2019- No [id number] .1mg Take 1 [facility] HCl 8-07 08-14 tablet by ity of (KAPVAY) 00:00: 00:00 mouth [place] 0.1 mg 00 :00 bedtime. Medical tablet Branch cloNIDine 2019- No [id number] .1mg Take 1 [facility] HCl 8-07 08-14 tablet by ity of (KAPVAY) 00:00: 00:00 mouth at [place] 0.1 mg 00 :00 bedtime. Medical tablet Branch XOPENEX HFA Yes [id number] INHALE 2 [facility] 45 7-29 PUFFS BY ity of mcg/actuati 00:00: MOUTH [place] on inhaler 00 EVERY 6 Medica l HOURS Branch NEEDED FOR SHORTNESS OF BREATH, WHEEZING OR BEFORE EXERCISE. XOPENEX HFA Yes [id number] INHALE 2 [facility] 45 7-29 PUFFS BY ity of mcg/actuati 00:00: MOUTH [place] on inhaler 00 EVERY 6 Medica l HOURS Branch NEEDED FOR SHORTNESS OF BREATH, WHEEZING OR BEFORE EXERCISE. XOPENEX HFA Yes [id number] INHALE 2 [facility] 45 7-29 PUFFS BY ity of mcg/actuati 00:00: MOUTH [place] on inhaler 00 EVERY 6 Medica l HOURS Branch NEEDED FOR SHORTNESS OF BREATH, WHEEZING OR BEFORE EXERCISE. XOPENEX HFA Yes [id number] INHALE 2 [facility] 45 7-29 PUFFS BY ity of mcg/actuati 00:00: MOUTH [place] on inhaler 00 EVERY 6 Medica l HOURS Branch NEEDED FOR SHORTNESS OF BREATH, WHEEZING OR BEFORE EXERCISE. XOPENEX HFA 2019- No [id number] INHALE 2 [facility] 45 7-29 08-15 PUFFS BY ity of mcg/actuati 00:00: 00:00 MOUTH [place] on inhaler 00 :00 EVERY 6 Medica l HOURS Branch NEEDED FOR SHORTNESS OF BREATH, WHEEZING OR BEFORE EXERCISE. XOPENEX HFA 2019- No [id number] INHALE 2 [facility] 45 7-29 08-15 PUFFS BY ity of mcg/actuati 00:00: 00:00 MOUTH [place] on inhaler 00 :00 EVERY 6 Medica l HOURS Branch NEEDED FOR SHORTNESS OF BREATH, WHEEZING OR BEFORE EXERCISE. XOPENEX HFA 2018- No [id number] INHALE 2 [facility] 45 7-29 08-15 PUFFS BY ity of mcg/actuati 00:00: 00:00 MOUTH [place] on inhaler 00 :00 EVERY 6 Medica l HOURS Branch NEEDED FOR SHORTNESS OF BREATH, WHEEZING OR BEFORE EXERCISE. amantadine 2019-0 Yes [id number] 200mg Take 20 mL [facility] HCl 50 mg/5 7-23 by mouth 2 it y of mL solution 00:00: (two) [place] 00 times Medical daily. Branch amantadine 2019-0 Yes [id number] 200mg Take 20 mL [facility] HCl 50 mg/5 7-23 by mouth 2 it y of mL solution 00:00: (two) [place] 00 times Medical daily. Branch amantadine 2019-0 Yes [id number] 200mg Take 20 mL [facility] HCl 50 mg/5 7-23 by mouth 2 it y of mL solution 00:00: (two) [place] 00 times Medical daily. Branch amantadine 2019-0 Yes [id number] 200mg Take 20 mL [facility] HCl 50 mg/5 7-23 by mouth 2 it y of mL solution 00:00: (two) [place] 00 times Medical daily. Branch amantadine 2018-0 2019- No [id number] 200mg Take 20 mL [facility] HCl 50 mg/5 7-23 08-14 by mouth 2 i ty of mL solution 00:00: 00:00 (two) [place] 00 :00 times Medical daily. Branch amantadine 2019-0 2019- No [id number] 200mg Take 20 mL [facility] HCl 50 mg/5 02-07 08-14 by mouth 2 i ty of mL solution 00:00: 00:00 (two) [place] 00 :00 times Medical daily. Branch busPIRone Yes [id number] 15mg Take 1 [facility] nivers 15 mg 7-18 tablet by ity of tablet 00:00: mouth [address] [place] [address] (two) Medical times Branch daily. busPIRone Yes [id number] 15mg Take 1 [facility] nivers 15 mg 7-18 tablet by ity of tablet 00:00: mouth 2 [place] 00 (two) Medical times Branch daily. busPIRone Yes [id number] 15mg Take 1 [facility] nivers 15 mg 7-18 tablet by ity of tablet 00:00: mouth 2 [place] (two) Medical times Branch daily. busPIRone Yes [id number] 15mg Take 1 [facility] nivers 15 mg 7-18 tablet by ity of tablet 00:00: mouth [address] [place] [address] (two) Medical times Branch daily. busPIRone 2018- No [id number] 15mg Take 1 [facility] 15 mg 7-18 08-14 tablet by ity of tablet 00:00: 00:00 mouth 2 [place] 00 :00 (two) Medical times Branch daily. busPIRone 2019- No [id number] 15mg Take 1 [facility] 15 mg 7-18 08-14 tablet by ity of tablet 00:00: 00:00 mouth 2 [place] 00 :00 (two) Medical times Branch daily. XOPENEX HFA 2019- No [id number] INHALE 2 [facility] 45 7-10 07-29 PUFFS BY ity of mcg/actuati 00:00: 00:00 MOUTH [place] on inhaler 00 :00 EVERY 6 Medica l HOURS Branch NEEDED SHORTNESS OF BREATH, WHEEZING, OR BEFORE EXERCISE fluticasone Yes [id number] 1{puff} Inhale 1 [facility] propionate 7-01 Puff 2 ity of (FLOVENT 00:00: ([facility]) [facility] [place] [facility]) 110 00 times Medical mcg/actuati daily. Branch on inhaler fluticasone Yes [id number] 1{puff} Inhale 1 [facility] propionate 7-01 Puff 2 ity of (FLOVENT 00:00: (two) [place] [facility]) 110 00 times Medical mcg/actuati daily. Branch on inhaler fluticasone Yes [id number] 1{puff} Inhale 1 [facility] propionate 7-01 Puff 2 ity of (FLOVENT 00:00: (two) [place] [facility]) 110 00 times Medical mcg/actuati daily. Branch on inhaler fluticasone Yes [id number] 1{puff} Inhale 1 [facility] propionate 7-01 Puff 2 ity of (FLOVENT 00:00: (two) [place] [facility]) 110 00 times Medical mcg/actuati daily. Branch on inhaler fluticasone Yes [id number] 1{puff} Inhale 1 [facility] propionate 7-01 Puff 2 ity of (FLOVENT 00:00: [facility] times Medical mcg/actuati daily. Branch on inhaler fluticasone Yes [id number] 1{puff} Inhale 1 [facility] propionate 7-01 Puff 2 ity of (FLOVENT 00:00: ([facility]) [place] [facility]) 110 00 times Medical mcg/actuati daily. Branch on inhaler fluticasone Yes [id number] 1{puff} Inhale 1 [facility] propionate 7-01 Puff 2 ity of (FLOVENT 00:00: ([facility]) [place] [facility]) 110 00 times Medical mcg/actuati daily. Branch on inhaler fluticasone Yes [id number] 1{puff} Inhale 1 [facility] propionate 7-01 Puff 2 ity of (FLOVENT 00:00: (two) [place] [facility]) 110 00 times Medical mcg/actuati daily. Branch on inhaler fluticasone Yes [id number] 1{puff} Inhale 1 [facility] propionate 7-01 Puff 2 ity of (FLOVENT 00:00: ([facility]) [place] [facility]) 110 00 times Medical mcg/actuati daily. Branch on inhaler fluticasone Yes [id number] 1{puff} Inhale 1 [facility] propionate 7-01 Puff 2 ity of (FLOVENT 00:00: (two) [place] [facility]) 110 00 times Medical mcg/actuati daily. Branch on inhaler fluticasone 2018- Yes [id number] 1{puff} Inhale 1 [facility] propionate 7-01 Puff 2 ity of (FLOVENT 00:00: () [place] [facility]) 110 00 times Medical mcg/actuati daily. Branch on inhaler fluticasone 2018- Yes [id number] 1{puff} Inhale 1 [facility] propionate 7-01 Puff 2 ity of (FLOVENT 00:00: () [place] [facility]) 110 00 times Medical mcg/actuati daily. Branch on inhaler fluticasone 2018- Yes [id number] 1{puff} Inhale 1 [facility] propionate 7-01 Puff 2 ity of (FLOVENT 00:00: () [facility] [place] [facility]) 110 00 times Medical mcg/actuati daily. Branch on inhaler fluticasone 2018- Yes [id number] 1{puff} Inhale 1 [facility] propionate 7-01 Puff 2 ity of (FLOVENT 00:00: ([facility]) [facility] [place] [facility]) 110 00 times Medical mcg/actuati daily. Branch on inhaler ARIPiprazol 2018- Yes [id number] 2mg Take 1 [facility] e (ABILIFY) 6-20 tablet by ity of 2 mg tablet 00:00: mouth [place] 00 daily. Medical Branch ARIPiprazol 2018-0 Yes [id number] 2mg Take 1 [facility] e (ABILIFY) 6-20 tablet by ity of 2 mg tablet 00:00: mouth [place] 00 daily. Medical Branch ARIPiprazol 2018-0 Yes [id number] 2mg Take 1 [facility] e (ABILIFY) 6-20 tablet by ity of 2 mg tablet 00:00: mouth [place] 00 daily. Medical Branch ARIPiprazol 2019-0 Yes [id number] 2mg Take 1 [facility] e (ABILIFY) 6-20 tablet by ity of 2 mg tablet 00:00: mouth [place] 00 daily. Medical Branch ARIPiprazol 2018- 2019- No [id number] 2mg Take 1 [facility] e (ABILIFY) 6-20 08-14 tablet by it y of 2 mg tablet 00:00: 00:00 mouth [place] 00 :00 daily. Medical Branch ARIPiprazol 2018- 2019- No [id number] 2mg Take 1 [facility] e (ABILIFY) 6-20 08-14 tablet by it y of 2 mg tablet 00:00: 00:00 mouth [place] 00 :00 daily. Medical Branch lisdexamfet 2019-0 Yes [id number] 40mg Take 1 [facility] amine 40 mg 6-19 capsule by it y of capsule 00:00: mouth [place] 00 every Medical morning. Branch lisdexamfet 2019-0 Yes [id number] 40mg Take 1 [facility] amine 40 mg 6-19 capsule by it y of capsule 00:00: mouth [place] 00 every Medical morning. Branch lisdexamfet 2019-0 Yes [id number] 40mg Take 1 [facility] amine 40 mg 6-19 capsule by it y of capsule 00:00: mouth [place] 00 every Medical morning. Branch lisdexamfet 2019-0 Yes [id number] 40mg Take 1 [facility] amine 40 mg 6-19 capsule by it y of capsule 00:00: mouth [place] 00 every Medical morning. Branch lisdexamfet 2019-0 Yes [id number] 40mg Take 1 [facility] amine 40 mg 6-19 capsule by it y of capsule 00:00: mouth [place] 00 every Medical morning. Branch lisdexamfet 2019-0 Yes [id number] 40mg Take 1 [facility] amine 40 mg 6-19 capsule by it y of capsule 00:00: mouth [place] 00 every Medical morning. Branch lisdexamfet 2019-0 Yes [id number] 40mg Take 1 [facility] amine 40 mg 6-19 capsule by it y of capsule 00:00: mouth [place] 00 every Medical morning. Branch lisdexamfet 2019-0 Yes [id number] 40mg Take 1 [facility] amine 40 mg 6-19 capsule by it y of capsule 00:00: mouth [place] 00 every Medical morning. Branch lisdexamfet 2019-0 Yes [id number] 40mg Take 1 [facility] amine 40 mg 6-19 capsule by it y of capsule 00:00: mouth [place] 00 every Medical morning. Branch lisdexamfet 2019-0 Yes [id number] 40mg Take 1 [facility] amine 40 mg 6-19 capsule by it y of capsule 00:00: mouth [place] 00 every Medical morning. Branch lisdexamfet 2019-0 Yes [id number] 40mg Take 1 [facility] amine 40 mg 6-19 capsule by it y of capsule 00:00: mouth [place] 00 every Medical morning. Branch lisdexamfet Yes [id number] 40mg Take 1 [facility] amine 40 mg 6-19 capsule by it y of capsule 00:00: mouth [place] 00 every Medical morning. Branch lisdexamfet Yes [id number] 40mg Take 1 [facility] amine 40 mg 6-19 capsule by it y of capsule 00:00: mouth [place] 00 every Medical morning. Branch lisdexamfet 2019- No [id number] 40mg Take 1 [facility] amine 40 mg 6-19 - capsule by i ty of capsule 00:00: 00:00 mouth [place] 00 :00 every Medical morning. Branch cloNIDine Yes [id number] .1mg Take 1 [place] HCl 5-07 tablet by ity of (KAPVAY) 00:00: mouth at [place] 0.1 mg 00 bedtime. Medical tablet Branch cloNIDine Yes [id number] .1mg Take 1 [place] HCl 5-07 tablet by ity of (KAPVAY) 00:00: mouth at [place] 0.1 mg 00 bedtime. Medical tablet Branch cloNIDine 2019- No [id number] .1mg Take 1 [facility] HCl 5-07 08-07 tablet by ity of (KAPVAY) 00:00: 00:00 mouth at [place] 0.1 mg 00 :00 bedtime. Medical tablet Branch XOPENEX HFA Yes [id number] INHALE 2 [facility] 45 5-06 PUFFS BY ity of mcg/actuati 00:00: MOUTH [place] on inhaler 00 EVERY 6 Medica l HOURS Branch NEEDED BEFORE EXERCISE OR FOR WHEEZING, SHORTNESS OF BREATH. XOPENEX HFA Yes [id number] INHALE 2 [facility] 45 5-06 PUFFS BY ity of mcg/actuati 00:00: MOUTH [place] on inhaler 00 EVERY 6 Medica l HOURS Branch NEEDED BEFORE EXERCISE OR FOR WHEEZING, SHORTNESS OF BREATH. XOPENEX HFA Yes [id number] INHALE 2 [facility] 45 5-06 PUFFS BY ity of mcg/actuati 00:00: MOUTH [place] on inhaler 00 EVERY 6 Medica l HOURS Branch NEEDED BEFORE EXERCISE OR FOR WHEEZING, SHORTNESS OF BREATH. XOPENEX HFA Yes [id number] INHALE 2 [facility] 45 5-06 PUFFS BY ity of mcg/actuati 00:00: MOUTH [place] on inhaler 00 EVERY 6 Medica l HOURS Branch NEEDED BEFORE EXERCISE OR FOR WHEEZING, SHORTNESS OF BREATH. XOPENEX HFA 2019- No [id number] INHALE 2 [facility] 45 5-06 08-15 PUFFS BY ity of mcg/actuati 00:00: 00:00 MOUTH [place] on inhaler 00 :00 EVERY 6 Medica l HOURS Branch NEEDED BEFORE EXERCISE OR FOR WHEEZING, SHORTNESS OF BREATH. XOPENEX HFA 2019- No [id number] INHALE 2 [facility] 45 5-06 08-15 PUFFS BY ity of mcg/actuati 00:00: 00:00 MOUTH [place] on inhaler 00 :00 EVERY 6 Medica l HOURS Branch NEEDED BEFORE EXERCISE OR FOR WHEEZING, SHORTNESS OF BREATH. XOPENEX HFA 2018- No [id number] INHALE 2 [facility] 45 5-06 08-15 PUFFS [...] Medical suspension times Branch daily. SERTraline Yes [id number] 25mg Take 0.5-1 [facility] 50 mg 4-24 tablets by ity of tablet 00:00: mouth [place] 00 daily. Medical Branch risperiDONE 2018- Yes [id number] .5mg Take 2 [facility] (RISPERDAL) 4-24 tablets by it y of 0.25 mg 00:00: mouth 2 [place] tablet 00 (two) Medical times Branch daily. SERTraline Yes [id number] 25mg Take 0.5-1 [facility] 50 mg 4-24 tablets by ity of tablet 00:00: mouth [place] 00 daily. Medical Branch risperiDONE Yes [id number] .5mg Take 2 [facility] (RISPERDAL) 4-24 tablets by it y of 0.25 mg 00:00: mouth 2 [place] tablet 00 (two) Medical times Branch daily. SERTraline Yes [id number] 25mg Take 0.5-1 [facility] 50 mg 4-24 tablets by ity of tablet 00:00: mouth [place] 00 daily. Medical Branch risperiDONE Yes [id number] .5mg Take 2 [facility] (RISPERDAL) 4-24 tablets by it y of 0.25 mg 00:00: mouth 2 [place] tablet 00 (two) Medical times Branch daily. SERTraline Yes [id number] 25mg Take 0.5-1 [facility] 50 mg 4-24 tablets by ity of tablet 00:00: mouth [place] 00 daily. Medical Branch risperiDONE Yes [id number] .5mg Take 2 [facility] (RISPERDAL) 4-24 tablets by it y of 0.25 mg 00:00: mouth 2 [place] tablet 00 (two) Medical times Branch daily. SERTraline 2019- No [id number] 25mg Take 0.5-1 [facility] 50 mg 4-24 08-14 tablets by ity of tablet 00:00: 00:00 mouth [place] 00 :00 daily. Medical Branch risperiDONE 2019- No [id number] .5mg Take 2 [facility] (RISPERDAL) 4-24 08-14 tablets by i ty of 0.25 mg 00:00: 00:00 mouth 2 [place] tablet 00 :00 (two) Medical times Branch daily. SERTraline 2019- No [id number] 25mg Take 0.5-1 [facility] 50 mg 4-24 08-14 tablets by ity of tablet 00:00: 00:00 mouth [place] 00 :00 daily. Medical Branch risperiDONE 2019- No [id number] .5mg Take 2 [facility] (RISPERDAL) 4-24 08-14 tablets by i ty of 0.25 mg 00:00: 00:00 mouth 2 [place] tablet 00 :00 (two) Medical times Branch daily. ARIPIPRAZOL Yes TAKE 1 Univ ers E 5 mg 1-04 TABLET BY ity of tablet 00:00: MOUTH [place] 00 EVERY Medical DAY([facility] Liang Main MD) ARIPIPRAZOL Yes TAKE 1 [facility] ers E 5 mg 1-04 TABLET BY ity of tablet 00:00: MOUTH [place] 00 EVERY Medical DAY([facility] Liang Main MD) ARIPIPRAZOL Yes TAKE 1 Univ ers E 5 mg 1-04 TABLET BY ity of tablet 00:00: MOUTH [place] 00 EVERY Medical DAY([facility] Liang Main MD) ARIPIPRAZOL Yes TAKE 1 Univ ers E 5 mg 1-04 TABLET BY ity of tablet 00:00: MOUTH [place] 00 EVERY Medical DAY([facility] Liang Main MD) ARIPIPRAZOL 2019- No TAKE 1 Uni vers E 5 mg 1-04 08-14 TABLET BY ity of tablet 00:00: 00:00 MOUTH [place] 00 :00 EVERY Medical DAY([facility] Liang Main MD) ARIPIPRAZOL 2019- No TAKE 1 Uni vers E 5 mg 1-04 08-14 TABLET BY ity of tablet 00:00: 00:00 MOUTH [place] 00 :00 EVERY Medical DAY([facility] Liang Main MD) [place] [id number] 2017-07 Yes 12 ml BID [place] MG/ML ORAL 2-19 , per mom ity of SOLN 21:44: [address] ESOMEPRAZOL 2017-07 Yes 20mg Take 20 mg [facility] E MAG 2-19 by mouth ity of TRIHYDRATE 21:44: once now. [place] (NEXIUM 48 Medical ORAL) [place] [address] 2017-07 Yes 12 ml BID [place] MG/ML ORAL 2-19 , per mom ity of SOLN 21:44: [address] ESOMEPRAZOL 2017-07 Yes 20mg Take 20 mg [facility] E MAG 2-19 by mouth ity of TRIHYDRATE 21:44: once now. [place] (NEXIUM 48 Medical ORAL) [place] [address] 2017-07 Yes 12 ml BID [place] MG/ML ORAL 2-19 , per mom ity of SOLN 21:44: [address]07 Yes 20mg Take 20 mg [facility] E MAG 2-19 by mouth ity of TRIHYDRATE 21:44: once now. [place] (NEXIUM 48 Medical ORAL) Branch [place] [id number] 2017-07 Yes 12 ml BID [place] MG/ML ORAL 2-19 , per mom ity of SOLN 21:44: [address] 2017-07 Yes 20mg Take 20 mg [facility] E MAG 2-19 by mouth ity of TRIHYDRATE 21:44: once now. [place] (NEXIUM 48 Medical ORAL) [place] [address] 2017-07 Yes 12 ml BID [place] MG/ML ORAL 2-19 , per mom ity of SOLN 21:44: [address] 2017-07 Yes 20mg Take 20 mg [facility] E MAG 2-19 by mouth ity of TRIHYDRATE 21:44: once now. [place] (NEXIUM 48 Medical ORAL) Branch [place] [id number] 2017-07 Yes 12 ml BID [place] MG/ML ORAL 2-19 , per mom ity of SOLN 21:44: [address] 2017-07 Yes 20mg Take 20 mg [facility] E MAG 2-19 by mouth ity of TRIHYDRATE 21:44: once now. [place] (NEXIUM 48 Medical ORAL) [place] [address] 2017-07 Yes 12 ml BID [place] MG/ML ORAL 2-19 , per mom ity [facility] SOLN 21:44[facility] [address] [facility] Yes 20[facility] Take 20 mg [facility] E MAG 2-19 by mouth ity of TRIHYDRATE 21:44: once now. [place] (NEXIUM 48 Medical ORAL) [place] [address] 2017-07 Yes 12 ml BID [place] MG/ML ORAL 2-19 , per mom ity of SOLN 21:44: [address] Yes 20mg Take 20 mg [facility] E MAG 2-19 by mouth ity of TRIHYDRATE 21:44: once now. [place] (NEXIUM 48 Medical ORAL) [place] [address] 2017-07 Yes 12 ml BID [place] MG/ML ORAL 2-19 , per mom ity of SOLN 21:44: [place] [address] 2017-07 Yes 12 ml BID [place] MG/ML ORAL 2-19 , per mom ity of SOLN 21:44: [address] 2017-07 Yes 20mg Take 20 mg [facility] E MAG 2-19 by mouth ity of TRIHYDRATE 21:44: once now. [place] (NEXIUM 48 Medical ORAL) [facility] 2017-07 Yes 20mg Take 20 mg [facility] E MAG 2-19 by mouth ity of TRIHYDRATE 21:44: once now. [place] (NEXIUM 48 Medical ORAL) [place] [address] 2017-07 Yes 12 ml BID [place] MG/ML ORAL 2-19 , per mom ity of SOLN 21:44: [address] 2017-07 Yes 20mg Take 20 mg [facility] E MAG 2-19 by mouth ity of TRIHYDRATE 21:44: once now. [place] (NEXIUM 48 Medical ORAL) [place] [address] 2017-07 Yes 12 ml BID [place] MG/ML ORAL 2-19 , per mom ity of SOLN 21:44: [address] 2017-07 Yes 20mg Take 20 mg [facility] E MAG 2-19 by mouth ity of TRIHYDRATE 21:44: once now. [place] (NEXIUM 48 Medical ORAL) [place] [address] 2017-07 Yes 12 ml BID [place] MG/ML ORAL 2-19 , per mom ity of SOLN 21:44: [address] 2017-07 Yes 20mg Take 20 mg [facility] E MAG 2-19 by mouth ity of TRIHYDRATE 21:44: once now. [place] (NEXIUM 48 Medical ORAL) [place] [address] 2017-07 Yes 12 ml BID [place] MG/ML ORAL 2-19 , per mom ity of SOLN 21:44: [address] 2017-07 Yes 20mg Take 20 mg [facility] E MAG 2-19 by mouth ity of TRIHYDRATE 21:44: once now. [place] (NEXIUM 48 Medical ORAL) [place] [address] 2017-07 Yes 12 ml BID [place] MG/ML ORAL 2-19 , per mom ity of SOLN 21:44: [address] Yes 20mg Take 20 mg [facility] E MAG 2-19 by mouth ity of TRIHYDRATE 21:44: once now. [place] (NEXIUM 48 Medical ORAL) [place] [address] 2017-07 Yes 12 ml BID [place] MG/ML ORAL 2-19 , per mom ity of SOLN 21:44: [address] Yes 20mg Take 20 mg [facility] E MAG 2-19 by mouth ity of TRIHYDRATE 21:44: once now. [place] (NEXIUM 48 Medical ORAL) [place] [address] 2017-07 Yes 12 ml BID [place] MG/ML ORAL 2-19 , per mom ity of SOLN 21:44: [address] 2017-07 Yes 20mg Take 20 mg [facility] E MAG 2-19 by mouth ity of TRIHYDRATE 21:44: [place] now. [place] ([facility] ORAL) [place] [id number] 2017-07 Yes 12 ml BID [place] MG/ML ORAL 2-19 , per mom ity of SOLN 21:44: [address] 2017-07 Yes 20mg Take 20 mg [facility] E MAG 2-19 by mouth ity of TRIHYDRATE 21:44: once now. [place] ([facility] ORAL) [place] [id number] 2017-07 Yes 12 ml BID [place] MG/ML ORAL 2-19 , per mom ity of SOLN 21:44: [address] 2017-07 Yes 20mg Take 20 mg [facility] E MAG 2-19 by mouth ity of TRIHYDRATE 21:44: [place] now. [place] ([facility] ORAL) [place] [address] 2017-07 Yes 12 ml BID [place] MG/ML ORAL 2-19 , per mom ity of SOLN 21:44: [place] [id number] 2017-07 Yes 12 ml BID [place] MG/ML ORAL 2-19 , per mom ity of SOLN 21:44: [address] 2017-07 Yes 20mg Take 20 mg [facility] E MAG 2-19 by mouth ity of TRIHYDRATE 21:44: once now. [place] ([facility] ORAL) [facility] Take 20 mg [facility] E MAG 2-19 by mouth ity of TRIHYDRATE 21:44: once now. [place] ([facility] ORAL) Branch [place] [id number] 2017-07 Yes 12 ml BID [place] MG/ML ORAL 2-19 , per mom ity of SOLN 21:44: [address] 2017-07 Yes 20mg Take 20 mg [facility] E MAG 2-19 by mouth ity of TRIHYDRATE 21:44: once now. [place] ([facility] ORAL) Branch [place] [id number] 2017-07 Yes 12 ml BID [place] MG/ML ORAL 2-19 , per mom ity of SOLN 21:44: [address] 2017-07 Yes 20mg Take 20 mg [facility] E MAG 2-19 by mouth ity of TRIHYDRATE 21:44: once now. [place] ([facility] ORAL) Branch [place] [address] 2017-07 Yes 12 ml BID [place] MG/ML ORAL 2-19 , per mom ity of SOLN 21:44: [address] 2017-07 Yes 20mg Take 20 mg [facility] E MAG 2-19 by mouth ity of TRIHYDRATE 21:44: once now. [place] ([facility] ORAL) Branch [place] [address] 2017-07 Yes 12 ml BID [place] MG/ML ORAL 2-19 , per mom ity of SOLN 21:44: [address] 2017-07 Yes 20mg Take 20 mg [facility] E MAG 2-19 by mouth ity of TRIHYDRATE 21:44: once now. [place] ([facility] ORAL) [place] [address] 2017-07 Yes 12 ml BID [place] MG/ML ORAL 2-19 , per mom ity of SOLN 21:44: [address] 2017-07 Yes 20mg Take 20 mg [facility] E MAG 2-19 by mouth ity of TRIHYDRATE 21:44: once now. [place] ([facility] ORAL) Branch [place] [address] 2017-07 Yes 12 ml BID [place] MG/ML ORAL 2-19 , per mom ity of SOLN 21:44: [address] ESOMEPRAZOL 2017-07 Yes 20mg Take 20 mg [facility] E MAG 2-19 by mouth ity of TRIHYDRATE 21:44: once now. [place] ([facility] ORAL) [place] [id number] 2017-07 Yes 12 ml BID [place] MG/ML ORAL 2-19 , per mom ity of SOLN 21:44: [address] 2017-07 Yes 20mg Take 20 mg [facility] E MAG 2-19 by mouth ity of TRIHYDRATE 21:44: once now. [place] ([facility] ORAL) [place] [address] 2017-07 Yes 12 ml BID [place] MG/ML ORAL 2-19 , per mom ity of SOLN 15:44: [address] 2017-07 Yes 20mg Take 20 mg [facility] E MAG 2-19 by mouth ity of TRIHYDRATE 15:44: once now. [place] ([facility] ORAL) [place] [address] 2017-07 Yes 12 ml BID [place] MG/ML ORAL 2-19 , per mom ity of SOLN 15:44: [address] 2017-07 Yes 20mg Take 20 mg [facility] E MAG 2-19 by mouth ity of TRIHYDRATE 15:44: once now. [place] ([facility] ORAL) [place] [address] 2017-07 Yes 12 ml BID [place] MG/ML ORAL 2-19 , per mom ity of SOLN 15:44: [address] 2017-07 Yes 20mg Take 20 mg [facility] E MAG 2-19 by mouth ity of TRIHYDRATE 15:44: once now. [place] ([facility] ORAL) [place] [address] 2017-07 Yes 12 ml BID [place] MG/ML ORAL 2-19 , per mom ity of SOLN 15:44: [address] 2017-07 Yes 20mg Take 20 mg [facility] E MAG 2-19 by mouth ity of TRIHYDRATE 15:44: once now. [place] ([facility] ORAL) [place] [address] 2017-07 Yes 12 ml BID [place] MG/ML ORAL 2-19 , per mom ity of SOLN 15:44: [address] ESOMEPRAZOL 2017-07 Yes 20mg Take 20 mg [facility] E MAG 2-19 by mouth ity of TRIHYDRATE 15:44: once now. [place] ([facility] ORAL) [place] [address] 2017-07 Yes 12 ml BID [place] MG/ML ORAL 2-19 , per mom ity of SOLN 15:44: [address] 2017-07 Yes 20mg Take 20 mg [facility] E MAG 2-19 by mouth ity of TRIHYDRATE 15:44: once now. [place] ([facility] ORAL) [place] [address] 2017-07 Yes 12 ml BID [place] MG/ML ORAL 2-19 , per mom ity of SOLN 15:44: [address] 2017-07 Yes 20mg Take 20 mg [facility] E MAG 2-19 by mouth ity of TRIHYDRATE 15:44: once now. [place] ([facility] ORAL) [place] [address] 2017-07 Yes 12 ml BID [place] MG/ML ORAL 2-19 , per mom ity of SOLN 15:44: [address] 2017-07 Yes 20mg Take 20 mg [facility] E MAG 2-19 by mouth ity of TRIHYDRATE 15:44: once now. [place] ([facility] ORAL) [place] [address] 2017-07 Yes 12 ml BID [place] MG/ML ORAL 2-19 , per mom ity of SOLN 15:44: [address] 2017-07 Yes 20mg Take 20 mg [facility] E MAG 2-19 by mouth ity of TRIHYDRATE 15:44: once now. [place] ([facility] ORAL) [place] [address] 2017-07 Yes 12 ml BID [place] MG/ML ORAL 2-19 , per mom ity of SOLN 15:44: [address] 2017-07 Yes 20mg Take 20 mg [facility] E MAG 2-19 by mouth ity of TRIHYDRATE 15:44: once now. [place] ([facility] ORAL) [place] [address] 2017-07 Yes 12 ml BID [place] MG/ML ORAL 2-19 , per mom ity of SOLN 15:44: [address] ESOMEPRAZOL 2017-07 Yes 20mg Take 20 mg [facility] E MAG 2-19 by mouth ity of TRIHYDRATE 15:44: once now. [place] ([facility] ORAL) [place] [address] 2017-07 Yes 12 ml BID [place] MG/ML ORAL 2-19 , per mom ity of SOLN 15:44: [address] 2017-07 Yes 20mg Take 20 mg [facility] E MAG 2-19 by mouth ity of TRIHYDRATE 15:44: once now. [place] ([facility] ORAL) [place] [address] 2017-07 Yes 12 ml BID [place] MG/ML ORAL 2-19 , per mom ity of SOLN 15:44: [address] 2017-07 Yes 20mg Take 20 mg [facility] E MAG 2-19 by mouth ity of TRIHYDRATE 15:44: once now. [place] ([facility] ORAL) [place] [address] 2017-07 Yes 12 ml BID [place] MG/ML ORAL 2-19 , per mom ity of SOLN 15:44: [address] 2017-07 Yes 20mg Take 20 mg [facility] E MAG 2-19 by mouth ity of TRIHYDRATE 15:44: once now. [place] ([facility] ORAL) [place] [address] 2017-07 Yes 12 ml BID [place] MG/ML ORAL 2-19 , per mom ity of SOLN 15:44: [address] 2017-07 Yes 20mg Take 20 mg [facility] E MAG 2-19 by mouth ity of TRIHYDRATE 15:44: once now. [place] ([facility] ORAL) [place] [address] 2017-07 Yes 12 ml BID [place] MG/ML ORAL 2-19 , per mom ity of SOLN 15:44: [address] 2017-07 Yes 20mg Take 20 mg [facility] E MAG 2-19 by mouth ity of TRIHYDRATE 15:44: once now. [place] ([facility] ORAL) [place] [address] 2017-07 Yes 12 ml BID [place] MG/ML ORAL 2-19 , per mom ity of SOLN 15:44: [address] 2017-07 Yes 20mg Take 20 mg [facility] E MAG 2-19 by mouth ity of TRIHYDRATE 15:44: once now. [place] ([facility] ORAL) [place] [address] 2017-07 Yes 12 ml BID [place] MG/ML ORAL 2-19 , per mom ity of SOLN 15:44: [address] 2017-07 Yes 20mg Take 20 mg [facility] E MAG 2-19 by mouth ity of TRIHYDRATE 15:44: once now. [place] ([facility] ORAL) [place] [address] 2017-07 Yes 12 ml BID [place] MG/ML ORAL 2-19 , per mom ity of SOLN 15:44: [address] [facility] Yes 20mg Take 20 mg [facility] E MAG 2-19 by mouth ity of TRIHYDRATE 15:44: once now. [place] ([facility] ORAL) [place] [address] 2017-07 Yes 12 ml BID [place] MG/ML ORAL 2-19 , per mom ity of SOLN 15:44: [address] 2017-07 Yes 20mg Take 20 mg [facility] E MAG 2-19 by mouth ity of TRIHYDRATE 15:44: once now. [place] ([facility] ORAL) [place] [address] 2017-07 Yes 12 ml BID [place] MG/ML ORAL 2-19 , per mom ity of SOLN 15:44: [address] 2017-07 Yes 20mg Take 20 mg [facility] E MAG 2-19 by mouth ity of TRIHYDRATE 15:44: once now. [place] ([facility] ORAL) [place] [address] 2017-07 Yes 12 ml BID [place] MG/ML ORAL 2-19 , per mom ity of SOLN 15:44: [address] 2017-07 Yes 20mg Take 20 mg [facility] E MAG 2-19 by mouth ity of TRIHYDRATE 15:44: once now. [place] ([facility] ORAL) [place] [address] 2017-07 Yes 12 ml BID [place] MG/ML ORAL 2-19 , per mom ity of SOLN 15:44: [address] Branch ESOMEPRAZOL 2018- Yes 20mg Take 20 mg [facility] E MAG 2-19 by mouth ity of TRIHYDRATE 15:44: once now. [place] ([facility] ORAL) Branch DIASTAT 0 Yes 10mg as [facility] ACUDIAL 8-21 needed for ity of 5-7.5-10 MG 19:32: seizure [place] as RECTAL KIT 05 lasting Medica l greater Branch than 5 min IMITREX 5 Yes as needed Uni vers MG/ACTUATIO 8-21 for ity of N NASAL 19:32: migraines [address] Yes Apply to [place] ne 0.1% in 8- affected ity o f aquaphor 19:32: area(s). [place] ([address] ) ointment Branch DIASTAT Yes 10mg as [facility] ACUDIAL 8-21 needed for ity of 5-7.5-10 MG 19:32: seizure [place] as RECTAL KIT 05 lasting Medica l greater Branch than 5 min IMITREX 5 0 Yes as needed Uni vers MG/ACTUATIO 8-21 for ity of N NASAL 19:32: migraines [address] Yes Apply to [place] ne 0.1% in 8-21 affected ity o f aquaphor 19:32: area(s). [place] (COMPOUNDED [address] [place] [address] ) ointment Branch DIASTAT Yes 10mg as Univers ACUDIAL 8-21 needed for ity of 5-7.5-10 MG 19:32: seizure [place] as RECTAL KIT 05 lasting Medica l greater Branch than 5 min IMITREX 5 Yes as needed Uni vers MG/ACTUATIO 8-21 for ity of N NASAL 19:32: migraines [address] Yes Apply to [place] ne 0.1% in 8-21 affected ity o f aquaphor 19:32: area(s). [place] (COMPOUNDED [address] [place] [address] ) ointment Branch DIASTAT Yes 10mg as Univers ACUDIAL 8-21 needed for ity of 5-7.5-10 MG 19:32: seizure [place] as RECTAL KIT 05 lasting Medica l greater Branch than 5 min IMITREX 5 Yes as needed Uni vers MG/ACTUATIO 8-21 for ity of N NASAL 19:32: migraines [address] Yes Apply to [place] ne 0.1% in 8-21 affected ity o f aquaphor 19:32: area(s). [place] ([address] ) ointment [place] DIASTAT Yes 10mg as Univers ACUDIAL 8-21 needed for ity of 5-7.5-10 MG 19:32: seizure [place] as RECTAL KIT 05 lasting Medica l greater Branch than 5 min IMITREX 5 Yes as needed Uni vers MG/ACTUATIO 8-21 for ity of N NASAL 19:32: migraines [address] Yes Apply to [place] ne 0.1% in 8-21 affected ity o f aquaphor 19:32: area(s). [place] ([address] ) ointment [place] DIAST Yes 10mg as Univers ACUDIAL 8-21 needed for ity of 5-7.5-10 MG 19:32: seizure [place] as RECTAL KIT 05 lasting Medica l greater Branch than 5 min IMITREX 5 Yes as needed Uni vers MG/ACTUATIO 8-21 for ity of N NASAL 19:32: migraines [address] Yes Apply to [place] ne 0.1% in 8-21 affected ity o f aquaphor 19:32: area(s). [place] (COMPOUNDED [address] [place] [address] ) ointment Branch DIASTAT Yes 10mg as Univers ACUDIAL 8-21 needed for ity of 5-7.5-10 MG 19:32: seizure [place] as RECTAL KIT 05 lasting Medica l greater Branch than 5 min IMITREX 5 Yes as needed Uni vers MG/ACTUATIO 8-21 for ity of N NASAL 19:32: migraines [address] Yes Apply to [place] ne [...] for ity of N NASAL 19:32: migraines [address] Yes Apply to [place] ne [...] for ity of N NASAL 19:32: migraines [address] IMITREX 5 Yes as needed Uni vers MG/ACTUATIO 8-21 for ity of N NASAL 19:32: migraines [address] Yes Apply to [place] ne [...] for ity of N NASAL 19:32: migraines [address] Yes Apply to [place] ne 0.1% in 8-21 affected ity o f aquaphor 19:32: area(s). [place] ([facility] ) ointment Branch [facility] Yes Apply to [place] ne 0.1% in 8-21 affected ity o f aquaphor 19:32: area(s). [place] (COMPOUNDED [address] [place] [address] ) ointment Branch DIASTAT Yes 10mg as Univers ACUDIAL 8-21 needed for ity of 5-7.5-10 MG 19:32: seizure [place] as RECTAL KIT 05 lasting Medica l greater Branch than 5 min IMITREX 5 Yes as needed Uni vers MG/ACTUATIO 8-21 for ity [facility] N NASAL 19:32[facility] [address] [place] [address] Yes Apply to [place] ne 0.1% in 8-21 affected ity o f aquaphor 19:32: area(s). [place] (COMPOUNDED [address] [place] [address] ) ointment Branch DIASTAT Yes 10mg as Univers ACUDIAL 8-21 needed for ity of 5-7.5-10 MG 19:32: seizure [place] as RECTAL KIT 05 lasting Medica l greater Branch than 5 min IMITREX 5 0 Yes as needed Uni vers MG/ACTUATIO 8-21 for ity of N NASAL 19:32: migraines [address] Yes Apply to [place] ne [...] for ity of N NASAL 19:32: migraines [address] Yes Apply to [place] ne [...] for ity of N NASAL 19:32: migraines [address] Yes Apply to [place] ne 0.1% in 8-21 affected ity o f aquaphor 19:32: area(s). [address] ) ointment [place] DIASTAT Yes 10mg as Univers ACUDIAL 8-21 needed for ity of 5-7.5-10 MG 19:32: seizure [place] as RECTAL KIT 05 lasting Medica l greater Branch than 5 min IMITREX 5 Yes as needed Uni vers MG/ACTUATIO 8-21 for ity of N NASAL 19:32: migraines [address] Yes Apply to [place] ne 0.1% in 8-21 affected ity o f aquaphor 19:32: area(s). [place] ([address] ) ointment [place] DIAST Yes 10mg as Univers ACUDIAL 8-21 needed for ity of 5-7.5-10 MG 19:32: seizure [place] as RECTAL KIT 05 lasting Medica l greater Branch than 5 min IMITREX 5 Yes as needed Uni vers MG/ACTUATIO 8-21 for ity of N NASAL 19:32: migraines [address] Yes Apply to [place] ne 0.1% in 8-21 affected ity o f aquaphor 19:32: area(s). [place] (COMPOUNDED [address] [place] [address] ) ointment [place] DIASTAT Yes 10mg as Univers ACUDIAL 8-21 needed for ity of 5-7.5-10 MG 19:32: seizure [place] as RECTAL KIT 05 lasting Medica l greater Branch than 5 min IMITREX 5 Yes as needed Uni vers MG/ACTUATIO 8-21 for ity of N NASAL 19:32: migraines [address] Yes Apply to [place] ne 0.1% in 8-21 affected ity o f aquaphor 19:32: area(s). [place] (COMPOUNDED [address] [place] [address] ) ointment Branch DIASTAT Yes 10mg as Univers ACUDIAL 8-21 needed for ity of 5-7.5-10 MG 19:32: seizure [place] as RECTAL KIT 05 lasting Medica l greater Branch than 5 min IMITREX 5 Yes as needed Uni vers MG/ACTUATIO 8-21 for ity of N NASAL 19:32: migraines [address] Yes Apply to [place] ne 0.1% in 8-21 affected ity o f aquaphor 19:32: area(s). [place] (COMPOUNDED [address] [place] [address] ) ointment Branch DIASTAT Yes 10mg as Univers ACUDIAL 8-21 needed for ity of 5-7.5-10 MG 19:32: seizure [place] as RECTAL KIT 05 lasting Medica l greater Branch than 5 min IMITREX 5 Yes as needed Uni vers MG/ACTUATIO 8-21 for ity of N NASAL 19:32: migraines [address] Yes Apply to [place] ne 0.1% in 8- affected ity o f aquaphor 19:32: area(s). [place] ([facility] ) ointment [place] DIAST Yes 10mg as Univers ACUDIAL 8-21 needed for ity of 5-7.5-10 MG 19:32: seizure [place] as RECTAL KIT 05 lasting Medica l greater Branch than 5 min IMITREX 5 Yes as needed Uni vers MG/ACTUATIO 8-21 for ity of N NASAL 19:32: migraines [address] DIAST Yes 10mg as Univers ACUDIAL 8-21 needed for ity of 5-7.5-10 MG 19:32: seizure [place] as RECTAL KIT 05 lasting Medica l greater Branch than 5 min IMITREX 5 Yes as needed Uni vers MG/ACTUATIO 8-21 for ity of N NASAL 19:32: migraines [address] Yes Apply to [place] ne 0.1% in 8-21 affected ity o f aquaphor 19:32: area(s). [place] ([facility] ) ointment Branch [facility] Yes Apply to [place] ne 0.1% [...] for ity of N NASAL 19:32: migraines [place] SPR[facility] Yes Apply to [place] ne 0.1% in 8- affected ity o f aquaphor 19:32: area(s). [place] (COMPOUNDED [address] [place] [address] ) ointment Branch DIASTAT Yes 10mg as Univers ACUDIAL 8-21 needed for ity of 5-7.5-10 MG 19:32: seizure [place] as RECTAL KIT 05 lasting Medica l greater Branch than 5 min IMITREX 5 Yes as needed Uni vers MG/ACTUATIO 8-21 for ity of N NASAL 19:32: [facility] [address] [place] [address] Yes Apply to [place] ne 0.1% [...] for ity of N NASAL 19:32: [facility] [address] [place] [address] Yes Apply to [place] ne 0.1% [...] for ity of N NASAL 19:32: migraines [address] Yes Apply to [place] ne 0.1% in 8-21 affected ity o f aquaphor 19:32: area(s). [address] ) ointment Branch DIASTAT Yes 10mg as Univers ACUDIAL 8-21 needed for ity of 5-7.5-10 MG 19:32: seizure [place] as RECTAL KIT 05 lasting Medica l greater Branch than 5 min IMITREX 5 Yes as needed Uni vers MG/ACTUATIO 8-21 for ity of N NASAL 19:32: migraines [address] Yes Apply to [place] ne 0.1% in 8- affected ity o f aquaphor 19:32: area(s). [place] ([address] ) ointment Branch DIASTAT Yes 10mg as Univers ACUDIAL 8-21 needed for ity of 5-7.5-10 MG 19:32: seizure [place] as RECTAL KIT 05 lasting Medica l greater Branch than 5 min IMITREX 5 Yes as needed Uni vers MG/ACTUATIO 8-21 for ity of N NASAL 19:32: migraines [address] Yes Apply to [place] ne [...] for ity of N NASAL 14:32: migraines [address] Yes Apply to [place] ne 0.1% in 8-21 affected ity o f aquaphor 14:32: area(s). [place] ([facility] ) ointment Branch DIASTAT Yes 10mg as Univers ACUDIAL 8-21 needed for ity of 5-7.5-10 MG 14:32: seizure [place] as RECTAL KIT 05 lasting Medica l greater Branch than 5 min IMITREX 5 0 Yes as needed Uni vers MG/ACTUATIO 8-21 for ity of N NASAL 14:32: migraines [address] Yes Apply to [place] ne 0.1% in 8-21 affected ity o f aquaphor 14:32: area(s). [place] (COMPOUNDED [address] [place] [address] ) ointment Branch DIASTAT Yes 10mg as Univers ACUDIAL 8-21 needed for ity of 5-7.5-10 MG 14:32: seizure [place] as RECTAL KIT 05 lasting Medica l greater Branch than 5 min IMITREX 5 0 Yes as needed Uni vers MG/ACTUATIO 8-21 for ity of N NASAL 14:32: migraines [address] Yes Apply to [place] ne 0.1% in 8-21 affected ity o f aquaphor 14:32: area(s). [place] (COMPOUNDED [address] [place] [address] ) ointment Branch DIASTAT Yes 10mg as Univers ACUDIAL 8-21 needed for ity of 5-7.5-10 MG 14:32: seizure [place] as RECTAL KIT 05 lasting Medica l greater Branch than 5 min IMITREX 5 0 Yes as needed Uni vers MG/ACTUATIO 8-21 for ity of N NASAL 14:32: migraines [address] Yes Apply to [place] ne [...] for ity of N NASAL 14:32: migraines [address] Yes Apply to [place] ne 0.1% in 8-21 affected ity o f aquaphor 14:32: area(s). [place] ([address] ) ointment Branch DIASTAT Yes 10mg as Univers ACUDIAL 8-21 needed for ity of 5-7.5-10 MG 14:32: seizure [place] as RECTAL KIT 05 lasting Medica l greater Branch than 5 min IMITREX 5 Yes as needed Uni vers MG/ACTUATIO 8-21 for ity of N NASAL 14:32: migraines [address] Yes Apply to [place] ne 0.1% in 8- affected ity o f aquaphor 14:32: area(s). [place] (COMPOUNDED [address] [place] [address] ) ointment Branch DIASTAT Yes 10mg as Univers ACUDIAL 8-21 needed for ity of 5-7.5-10 MG 14:32: seizure [place] as RECTAL KIT 05 lasting Medica l greater Branch than 5 min IMITREX 5 Yes as needed Uni vers MG/ACTUATIO 8-21 for ity of N NASAL 14:32: migraines [address] Yes Apply to [place] ne 0.1% in 8- affected ity o f aquaphor 14:32: area(s). [place] (COMPOUNDED [address] [place] [address] ) ointment Branch DIASTAT Yes 10mg as Univers ACUDIAL 8-21 needed for ity of 5-7.5-10 MG 14:32: seizure [place] as RECTAL KIT 05 lasting Medica l greater Branch than 5 min IMITREX 5 Yes as needed Uni vers MG/ACTUATIO 8-21 for ity of N NASAL 14:32: migraines [address] Yes Apply to [place] ne [...] for ity of N NASAL 14:32: migraines [address] Yes Apply to [place] ne 0.1% in 8-21 affected ity o f aquaphor 14:32: area(s). [address] ) ointment Branch DIASTAT Yes 10mg as Univers ACUDIAL 8-21 needed for ity of 5-7.5-10 MG 14:32: seizure [place] as RECTAL KIT 05 lasting Medica l greater Branch than 5 min IMITREX 5 Yes as needed Uni vers MG/ACTUATIO 8-21 for ity of N NASAL 14:32: migraines [address] Yes Apply to [place] ne 0.1% in 8-21 affected ity o f aquaphor 14:32: area(s). [address] ) ointment [place] DIASTAT Yes 10mg as Univers ACUDIAL 8-21 needed for ity of 5-7.5-10 MG 14:32: seizure [place] as RECTAL KIT 05 lasting Medica l greater Branch than 5 min IMITREX 5 Yes as needed Uni vers MG/ACTUATIO 8-21 for ity of N NASAL 14:32: migraines [address] Yes Apply to [place] ne 0.1% in 8-21 affected ity o f aquaphor 14:32: area(s). [place] (COMPOUNDED [address] [place] [address] ) ointment Branch DIASTAT Yes 10mg as Univers ACUDIAL 8-21 needed for ity of 5-7.5-10 MG 14:32: seizure [place] as RECTAL KIT 05 lasting Medica l greater Branch than 5 min IMITREX 5 Yes as needed Uni vers MG/ACTUATIO 8-21 for ity of N NASAL 14:32: migraines [address] Yes Apply to [place] ne 0.1% in 8-21 affected ity o f aquaphor 14:32: area(s). [place] (COMPOUNDED [address] [place] [address] ) ointment Branch DIASTAT Yes 10mg as Univers ACUDIAL 8-21 needed for ity of 5-7.5-10 MG 14:32: seizure [place] as RECTAL KIT 05 lasting Medica l greater Branch than 5 min IMITREX 5 0 Yes as needed Uni vers MG/ACTUATIO 8-21 for ity of N NASAL 14:32: migraines [address] Yes Apply to [place] ne [...] for ity of N NASAL 14:32: migraines [address] Yes Apply to [place] ne 0.1% in 8-21 affected ity o f aquaphor 14:32: area(s). [place] (COMPOUNDED [address] [place] [address] ) ointment Branch DIASTAT Yes 10mg as Univers ACUDIAL 8-21 needed for ity of 5-7.5-10 MG 14:32: seizure [place] as RECTAL KIT 05 lasting Medica l greater Branch than 5 min IMITREX 5 Yes as needed Uni vers MG/ACTUATIO 8-21 for ity of N NASAL 14:32: migraines [address] Yes Apply to [place] ne [...] for ity of N NASAL 14:32: migraines [address] Yes Apply to [place] ne 0.1% in 8-21 affected ity o f aquaphor 14:32: area(s). [place] (COMPOUNDED [address] [place] [address] ) ointment Branch DIASTAT Yes 10mg as Univers ACUDIAL 8-21 needed for ity of 5-7.5-10 MG 14:32: seizure [place] as RECTAL KIT 05 lasting Medica l greater Branch than 5 min IMITREX 5 Yes as needed Uni vers MG/ACTUATIO 8-21 for ity of N NASAL 14:32: migraines [place] SPR[facility] [address] [place] [address] Yes Apply to [place] ne 0.1% in 8- affected ity o f aquaphor 14:32: area(s). [place] (COMPOUNDED [address] [place] [address] ) ointment Branch DIASTAT Yes 10mg as Univers ACUDIAL 8-21 needed for ity of 5-7.5-10 MG 14:32: seizure [place] as RECTAL KIT 05 lasting Medica l greater Branch than 5 min IMITREX 5 Yes as needed Uni vers MG/ACTUATIO 8-21 for ity of N NASAL 14:32[facility] [address] [place] [address] Yes Apply to [place] 0.1% [...] for ity of N NASAL 14:32[facility] [address] [place] [address] Yes Apply to [place] ne 0.1% [...] for ity of N NASAL 14:32: migraines [address] Yes Apply to [place] ne 0.1% in 8-21 affected ity o f aquaphor 14:32: area(s). [place] ([address] ) ointment Branch DIASTAT Yes 10mg as Univers ACUDIAL 8-21 needed for ity of 5-7.5-10 MG 14:32: seizure [place] as RECTAL KIT 05 lasting Medica l greater Branch than 5 min IMITREX 5 Yes as needed Uni vers MG/ACTUATIO 8-21 for ity of N NASAL 14:32: migraines [address] Yes Apply to [place] 0.1% in 8-21 affected ity o f aquaphor 14:32: area(s). [place] ([address] ) ointment [place] DIASTAT Yes 10mg as Univers ACUDIAL 8-21 needed for ity of 5-7.5-10 MG 14:32: seizure [place] as RECTAL KIT 05 lasting Medica [facility] [place] than 5 min IMITREX 5 Yes as needed Uni vers MG/ACTUATIO 8-21 for ity of N NASAL 14:32: migraines [address] Yes Apply to [place] 0.1% in 8-21 affected ity o f aquaphor 14:32: area(s). [place] (COMPOUNDED [address] [place] [address] ) ointment [place] IMITREX 5 Yes as needed Uni vers MG/ACTUATIO 8-21 for ity of N NASAL 14:32: migraines [address] IMITREX 5 Yes as needed Uni vers MG/ACTUATIO 8-21 for ity of N NASAL 14:32: migraines [address] IMITREX 5 0 Yes as needed Uni vers MG/ACTUATIO 8-21 for ity of N NASAL 14:32: migraines 60 [address] IMITREX 5 Yes as needed Uni vers MG/ACTUATIO 8-21 for ity of N NASAL 14:32: migraines [place] [address] Medical Branch IMITREX 5 2018-0 Yes as needed Uni vers MG/ACTUATIO 8-21 for ity of N NASAL 14:32: migraines [address] Branch IMITREX 5 2018-0 Yes as needed Uni vers MG/ACTUATIO 8-21 for ity of N NASAL 14:32: migraines [address] Branch IMITREX 5 2017-0 Yes as needed Uni vers MG/ACTUATIO 8-21 for ity of N NASAL 14:32: migraines [place] [address] Medical Branch IMITREX 5 2017-0 Yes as needed Uni vers MG/ACTUATIO 8-21 for ity of N NASAL 14:32: migraines [place] [address] Medical Branch IMITREX 5 2017-0 Yes as needed Uni vers MG/ACTUATIO 8-21 for ity of N NASAL 14:32: migraines [place] [address] Medical Branch IMITREX 5 2017-0 Yes as needed Uni vers MG/ACTUATIO 8-21 for ity of N NASAL 14:32: migraines [place] [address] Medical Branch IMITREX 5 2017-0 Yes as needed Uni vers MG/ACTUATIO 8-21 for ity of N NASAL 14:32: migraines [place] [address] Medical Branch IMITREX 5 2017-0 Yes as needed Uni vers MG/ACTUATIO 8-21 for ity of N NASAL 14:32: migraines [place] [address] Medical Branch IMITREX 5 2017-0 Yes as needed Uni vers MG/ACTUATIO 8-21 for ity of N NASAL 14:32: migraines [place] [address] Medical Branch IMITREX 5 2018-0 Yes as needed Uni vers MG/ACTUATIO 8-21 for ity of N NASAL 14:32: migraines [place] [address] [facility] Branch IMITREX 5 2018-0 Yes as needed Uni vers MG/ACTUATIO 8-21 for ity of N NASAL 14:32: migraines [place] [address] [facility] Branch IMITREX 5 2018-0 Yes as needed Uni vers MG/ACTUATIO 8-21 for ity of N NASAL 14:32: migraines [place] [address] Medical Branch IMITREX 5 2018-0 Yes as needed Uni vers MG/ACTUATIO 8-21 for ity of N NASAL 14:32: migraines [place] [address] Medical Branch IMITREX 5 2018-0 Yes as needed Uni vers MG/ACTUATIO 8-21 for ity of N NASAL 14:32: migraines [place] [address] Medical Branch IMITREX 5 2018-0 Yes as needed Uni vers MG/ACTUATIO 8-21 for ity of N NASAL 14:32: migraines [place] [address] Medical Branch IMITREX 5 2018-0 Yes as needed Uni vers MG/ACTUATIO 8-21 for ity of N NASAL 14:32: migraines [place] [address] Medical Branch IMITREX 5 2017-0 Yes as needed Uni vers MG/ACTUATIO 8-21 for ity of N NASAL 14:32: migraines [place] [address] Medical Branch IMITREX 5 2017-0 Yes as needed Uni vers MG/ACTUATIO 8-21 for ity of N NASAL 14:32: migraines [place] [address] Medical Branch IMITREX 5 2017-0 Yes as needed Uni vers MG/ACTUATIO 8-21 for ity of N NASAL 14:32: migraines [place] [address] Medical Branch IMITREX 5 2017-0 Yes as needed Uni vers MG/ACTUATIO 8-21 for ity of N NASAL 14:32: migraines [place] [address] [facility] Branch IMITREX 5 2017-0 Yes as needed Uni vers MG/ACTUATIO 8-21 for ity of N NASAL 14:32: migraines [place] [address] [facility] Branch IMITREX 5 2017-0 Yes as needed Uni vers MG/ACTUATIO 8-21 for ity of N NASAL 14:32: migraines [place] [address] [facility] Branch IMITREX 5 2017-0 Yes as needed Uni vers MG/ACTUATIO 8-21 for ity of N NASAL 14:32: migraines [place] [address] [facility] Branch IMITREX 5 2018-0 Yes as needed Uni vers MG/ACTUATIO 8-21 for ity of N NASAL 14:32: migraines [place] [address] [facility] Branch IMITREX 5 2018-0 Yes as needed Uni vers MG/ACTUATIO 8-21 for ity of N NASAL 14:32: migraines [place] [address] Medical Branch IMITREX 5 2018-0 Yes as needed Uni vers MG/ACTUATIO 8-21 for ity of N NASAL 14:32: migraines [place] SPRY 05 Medical Branch IMITREX 5 Yes as needed Uni vers MG/ACTUATIO 8-21 for ity of N NASAL 14:32: migraines [place] [address] Medical Branch IMITREX 5 Yes as needed Uni vers MG/ACTUATIO 8-21 for ity of N NASAL 14:32: migraines [address] Branch IMITREX 5 Yes as needed Uni vers MG/ACTUATIO 8-21 for ity of N NASAL 14:32: migraines [address] Branch IMITREX 5 Yes as needed Uni vers MG/ACTUATIO 8-21 for ity of N NASAL 14:32: migraines [address] Branch IMITREX 5 Yes as needed Uni vers MG/ACTUATIO 8-21 for ity of N NASAL 14:32: migraines [address] IMITREX 5 Yes as needed Uni vers MG/ACTUATIO 8-21 for ity of N NASAL 14:32: migraines [address] Branch IMITREX 5 Yes as needed Uni vers MG/ACTUATIO 8-21 for ity of N NASAL 14:32: migraines [address] Branch DIASTAT Yes 10mg as Univers ACUDIAL 03-08 needed for ity of 5-7.5-10 MG 14:32: seizure [place] RECTAL KIT 05 lasting Medica l greater Branch than 5 min IMITREX 5 Yes as needed Uni vers MG/ACTUATIO 8-21 for ity of N NASAL 14:32: migraines [address] Branch triamcinolo Yes Apply to [place] ne 0.1% in 03-08 affected ity o f aquaphor 14:32: area(s). [place] (COMPOUNDED 05 Medical ) ointment Branch busPIRone 2019- No 15mg Take 1 Unive rs 15 mg 03-0817 tablet by ity of tablet 00:00: 00:00 mouth 2 [place] 00 :00 (two) Medical times Branch daily for 30 days. ARIPiprazol 2018- No 5mg Take 1 Uni vers e (ABILIFY) 03-0818 tablet by it y of 5 mg [...] 00 daily. Medical Branch fluticasone 2019- No [id number] 1{puff} Inhale 1 Univers (FLOVENT 03-04 07-01 [...] No 5mg Take 0.5-1 Univers e (ABILIFY) 02-28 08-21 tablets by i ty of 10 mg 00:00: 00:00 mouth [place] tablet 00 :00 daily. Medical Branch risperiDONE 2017- 2018- No .5mg Take 2 Uni vers (RISPERDAL) 7-16 08-28 tablets by i ty of 0.25 mg 00:00: 00:00 mouth 2 [place] tablet 00 :00 (two) Medical times Branch daily. cloNIDine 2017- 2018- No [id number] .1mg Take 1-2 Univers HCl 6-26 10-15 [...] by mouth. ity of tablet 00:00: [place] [facility] amitriptyli 2018-0 Yes 10mg Take 10 mg Univers ne 10 mg 5-22 by mouth. ity of tablet 00:00: [place] [facility] amitriptyli 2018-0 Yes 10mg Take 10 mg Univers ne 10 mg 5-22 by mouth. ity of tablet 00:00: [place] [facility] amitriptyli 2018-0 Yes 10mg Take 10 mg Univers ne 10 mg 5-22 by mouth. ity of tablet 00:00: [place] [facility] amitriptyli 2018-0 Yes 10mg Take 10 mg Univers ne 10 mg 5-22 by mouth. ity of tablet 00:00: [place] [facility] amitriptyli 2018-0 Yes 10mg Take 10 mg Univers ne 10 mg 5-22 by mouth. ity of tablet 00:00: [place] [facility] amitriptyli 2018-0 Yes 10mg Take 10 mg Univers ne 10 mg 5-22 by mouth. ity of tablet 00:00: [place] [facility] amitriptyli 2018-0 Yes 10mg Take 10 mg Univers ne 10 mg 5-22 by mouth. ity of tablet 00:00: [place] [facility] amitriptyli 2018-0 Yes 10mg Take 10 mg Univers ne 10 mg 5-22 by mouth. ity of tablet 00:00: [place] [facility] amitriptyli 2018-0 Yes 10mg Take 10 mg Univers ne 10 mg 5-22 by mouth. ity of tablet 00:00: [place] [facility] amitriptyli 2018-0 Yes 10mg Take 10 mg Univers ne 10 mg 5-22 by mouth. ity of tablet 00:00: [place] [facility] amitriptyli 2018-0 Yes 10mg Take 10 mg Univers ne 10 mg 5-22 by mouth. ity of tablet 00:00: [place] [facility] amitriptyli 2018-0 Yes 10mg Take 10 mg Univers ne 10 mg 5-22 by mouth. ity of tablet 00:00: [place] [facility] amitriptyli 2018-0 Yes 10mg Take 10 mg Univers ne 10 mg 5-22 by mouth. ity of tablet 00:00: [place] [facility] amitriptyli 2018-0 Yes 10mg Take 10 mg Univers ne 10 mg 5-22 by mouth. ity of tablet 00:00: [place] [facility] amitriptyli 2018-0 Yes 10mg Take 10 mg Univers ne 10 mg 5-22 by mouth. ity of tablet 00:00: [place] [facility] amitriptyli 2018-0 Yes 10mg Take 10 mg Univers ne 10 mg 5-22 by mouth. ity of tablet 00:00: [place] [facility] amitriptyli 2018-0 Yes 10mg Take 10 mg Univers ne 10 mg 5-22 by mouth. ity of tablet 00:00: [place] [facility] amitriptyli 2017-0 Yes 10mg Take 10 mg Univers ne 10 mg 5-22 by mouth. ity of tablet 00:00: [place] [facility] amitriptyli 2018-0 Yes 10mg Take 10 mg Univers ne 10 mg 5-22 by mouth. ity of tablet 00:00: [place] [facility] amitriptyli 2018-0 Yes 10mg Take 10 mg Univers ne 10 mg 5-22 by mouth. ity of tablet 00:00: [place] [facility] amitriptyli 2017-0 Yes 10mg Take 10 mg Univers ne 10 mg 5-22 by mouth. ity of tablet 00:00: [place] [facility] amitriptyli 2018-0 Yes 10mg Take 10 mg Univers ne 10 mg 5-22 by mouth. ity of tablet 00:00: [place] [facility] amitriptyli 2018-0 Yes 10mg Take 10 mg Univers ne 10 mg 5-22 by mouth. ity of tablet 00:00: [place] [facility] amitriptyli 2018-0 Yes 10mg Take 10 mg Univers ne 10 mg 5-22 by mouth. ity of tablet 00:00: [place] [facility] amitriptyli 2018-0 Yes 10mg Take 10 mg Univers ne 10 mg 5-22 by mouth. ity of tablet 00:00: [place] [facility] amitriptyli 2018-0 Yes 10mg Take 10 mg Univers ne 10 mg 5-22 by mouth. ity of tablet 00:00: [place] [facility] amitriptyli 2018-0 Yes 10mg Take 10 mg Univers ne 10 mg 5-22 by mouth. ity of tablet 00:00: [address] amitriptyli 2018-0 Yes 10mg Take 10 mg Univers ne 10 mg 5-22 by mouth. ity of tablet 00:00: [place] [facility] amitriptyli 2018-0 Yes 10mg Take 10 mg Univers ne 10 mg 5-22 by mouth. ity of tablet 00:00: [place] [facility] amitriptyli 2018-0 Yes 10mg Take 10 mg Univers ne 10 mg 5-22 by mouth. ity of tablet 00:00: [place] [facility] amitriptyli 2018-0 Yes 10mg Take 10 mg Univers ne 10 mg 5-22 by mouth. ity of tablet 00:00: [place] [facility] amitriptyli 2018-0 Yes 10mg Take 10 mg Univers ne 10 mg 5-22 by mouth. ity of tablet 00:00: [place] [facility] amitriptyli 2018-0 Yes 10mg Take 10 mg Univers ne 10 mg 5-22 by mouth. ity of tablet 00:00: [place] [facility] amitriptyli 2018-0 Yes 10mg Take 10 mg Univers ne 10 mg 5-22 by mouth. ity of tablet 00:00: [place] [facility] amitriptyli 2017-0 Yes 10mg Take 10 mg Univers ne 10 mg 5-22 by mouth. ity of tablet 00:00: [place] [facility] amitriptyli 2018-0 Yes 10mg Take 10 mg Univers ne 10 mg 5-22 by mouth. ity of tablet 00:00: [place] [facility] amitriptyli 2018-0 Yes 10mg Take 10 mg Univers ne 10 mg 5-22 by mouth. ity of tablet 00:00: [place] [facility] amitriptyli 2018-0 Yes 10mg Take 10 mg Univers ne 10 mg 5-22 by mouth. ity of tablet 00:00: [place] [facility] amitriptyli 2018-0 Yes 10mg Take 10 mg Univers ne 10 mg 5-22 by mouth. ity of tablet 00:00: [place] [facility] amitriptyli 2018-0 Yes 10mg Take 10 mg Univers ne 10 mg 5-22 by mouth. ity of tablet 00:00: [place] [facility] amitriptyli 2018-0 2022- No 10mg Take 10 mg Univers ne 10 mg 5-22 08-18 by mouth. ity o f tablet 00:00: 00:00 [place] 00 :00 Medical Branch amitriptyli 2018-0 2023- No 10mg Take 10 mg Univers ne 10 mg 12-07 by mouth. ity o f tablet 00:00: 00:00 [place] 00 :00 Medical Branch amitriptyli 2022- No 10mg Take 10 mg Univers ne 10 mg 12-07 by mouth. ity o f tablet 00:00: 00:00 [place] 00 :00 Medical Branch amitriptyli 2022- No 10mg Take 10 mg Univers ne 10 mg 12-07 by mouth. ity o f tablet 00:00: 00:00 [place] 00 :00 Medical Branch amphetamine 2019- No [...] ty of mL solution 00:00: 00:00 (two) [place] 00 :00 times Medical daily. Branch busPIRone 2017- No 15mg Take 1 Unive rs 15 mg 09-08 tablet by ity of tablet 00:00: 00:00 mouth 2 [place] 00 :00 (two) Medical times Branch daily. risperiDONE 2014-07 Yes .5mg Take 0.5 [place] 0.5 mg 0-15 mg by ity of tablet 00:00: mouth. [place] [facility] risperiDONE 2014-07 Yes .5mg Take 0.5 [place] 0.5 mg 0-15 mg by ity of tablet 00:00: mouth. [place] [facility] risperiDONE 2014-07 Yes .5mg Take 0.5 [place] 0.5 mg 0-15 mg by ity of tablet 00:00: mouth. [place] [address] Medical Branch risperiDONE 2014-07 Yes .5mg Take 0.5 [place] 0.5 mg 0-15 mg by ity of tablet 00:00: mouth. [address] risperiDONE 2014-07 Yes .5mg Take 0.5 [place] 0.5 mg 0-15 mg by ity of tablet 00:00: mouth. [address] risperiDONE 2014-07 Yes .5mg Take 0.5 [place] 0.5 mg 0-15 mg by ity of tablet 00:00: mouth. [address] risperiDONE 2014-07 Yes .5mg Take 0.5 [place] 0.5 mg 0-15 mg by ity of tablet 00:00: mouth. [address] risperiDONE 2014-07 Yes .5mg Take 0.5 [place] 0.5 mg 0-15 mg by ity of tablet 00:00: mouth. [address] risperiDONE 2014-07 Yes .5mg Take 0.5 [place] 0.5 mg 0-15 mg by ity of tablet 00:00: mouth. [address] risperiDONE 2014-07 Yes .5mg Take 0.5 [place] 0.5 mg 0-15 mg by ity of tablet 00:00: mouth. [address] risperiDONE 2014-07 Yes .5mg Take 0.5 [place] 0.5 mg 0-15 mg by ity of tablet 00:00: mouth. [address] risperiDONE 2014-07 Yes .5mg Take 0.5 [place] 0.5 mg 0-15 mg by ity of tablet 00:00: mouth. [address] risperiDONE 2014-07 Yes .5mg Take 0.5 [place] 0.5 mg 0-15 mg by ity of tablet 00:00: mouth. [address] risperiDONE 2014-07 Yes .5mg Take 0.5 [place] 0.5 mg 0-15 mg by ity of tablet 00:00: mouth. [address] risperiDONE 2014-07 Yes .5mg Take 0.5 [place] 0.5 mg 0-15 mg by ity of tablet 00:00: mouth. [address] risperiDONE 2014-07 Yes .5mg Take 0.5 [place] 0.5 mg 0-15 mg by ity of tablet 00:00: mouth. [address] risperiDONE 2014-07 Yes .5mg Take 0.5 [place] 0.5 mg 0-15 mg by ity of tablet 00:00: mouth. [address] risperiDONE 2014- Yes .5mg Take 0.5 [place] 0.5 mg 0-15 mg by ity of tablet 00:00: mouth. [address] risperiDONE 2014- Yes .5mg Take 0.5 [place] 0.5 mg 0-15 mg by ity of tablet 00:00: mouth. [address] risperiDONE 2014- Yes .5mg Take 0.5 [place] 0.5 mg 0-15 mg by ity of tablet 00:00: mouth. [address] risperiDONE 2014- Yes .5mg Take 0.5 [place] 0.5 mg 0-15 mg by ity of tablet 00:00: mouth. [address] risperiDONE 2014- Yes .5mg Take 0.5 [place] 0.5 mg 0-15 mg by ity of tablet 00:00: mouth. [address] risperiDONE 2014- Yes .5mg Take 0.5 [place] 0.5 mg 0-15 mg by ity of tablet 00:00: mouth. [address] risperiDONE 2014-07 Yes .5mg Take 0.5 [place] 0.5 mg 0-15 mg by ity of tablet 00:00: mouth. [address] risperiDONE 2014- Yes .5mg Take 0.5 [place] 0.5 mg 0-15 mg by ity of tablet 00:00: mouth. [address] risperiDONE 2014-07 Yes .5mg Take 0.5 [place] 0.5 mg 0-15 mg by ity of tablet 00:00: mouth. [address] risperiDONE 2014- Yes .5mg Take 0.5 [place] 0.5 mg 0-15 mg by ity of tablet 00:00: mouth. [address] risperiDONE 2014- Yes .5mg Take 0.5 [place] 0.5 mg 0-15 mg by ity of tablet 00:00: mouth. [address] risperiDONE 2014- Yes .5mg Take 0.5 [place] 0.5 mg 0-15 mg by ity of tablet 00:00: mouth. [address] risperiDONE 2014-07 Yes .5mg Take 0.5 [place] 0.5 mg 0-15 mg by ity of tablet 00:00: mouth. [address] risperiDONE 2014-07 Yes .5mg Take 0.5 [place] 0.5 mg 0-15 mg by ity of tablet 00:00: mouth. [address] risperiDONE 2014-07 Yes .5mg Take 0.5 [place] 0.5 mg 0-15 mg by ity of tablet 00:00: mouth. [place] [facility] risperiDONE 2014-07 Yes .5mg Take 0.5 [place] 0.5 mg 0-15 mg by ity of tablet 00:00: mouth. [address] risperiDONE 2014-07 Yes .5mg Take 0.5 [place] 0.5 mg 0-15 mg by ity of tablet 00:00: mouth. [address] risperiDONE 2014-07 Yes .5mg Take 0.5 [place] 0.5 mg 0-15 mg by ity of tablet 00:00: mouth. [address] risperiDONE 2014-07 Yes .5mg Take 0.5 [place] 0.5 mg 0-15 mg by ity of tablet 00:00: mouth. [address] risperiDONE 2014-07 Yes .5mg Take 0.5 [place] 0.5 mg 0-15 mg by ity of tablet 00:00: mouth. [address] risperiDONE 2014-07 Yes .5mg Take 0.5 [place] 0.5 mg 0-15 mg by ity of tablet 00:00: mouth. [address] risperiDONE 2014-07 Yes .5mg Take 0.5 [place] 0.5 mg 0-15 mg by ity of tablet 00:00: mouth. [address] risperiDONE 2014-07 Yes .5mg Take 0.5 [place] 0.5 mg 0-15 mg by ity of tablet 00:00: mouth. [address] risperiDONE 2014-07 Yes .5mg Take 0.5 [place] 0.5 mg 0-15 mg by ity of tablet 00:00: mouth. [address] risperiDONE 2014-07 Yes .5mg Take 0.5 [place] 0.5 mg 0-15 mg by ity of tablet 00:00: mouth. [address] risperiDONE 2014-07 Yes .5mg Take 0.5 [place] 0.5 mg 0-15 mg by ity of tablet 00:00: mouth. [address] risperiDONE 2014-07 Yes .5mg Take 0.5 [place] 0.5 mg 0-15 mg by ity of tablet 00:00: mouth. [address] risperiDONE 2014-07 Yes .5mg Take 0.5 [place] 0.5 mg 0-15 mg by ity of tablet 00:00: mouth. [address] risperiDONE 2014-07 Yes .5mg Take 0.5 [place] 0.5 mg 0-15 mg by ity of tablet 00:00: mouth. [address] risperiDONE 2014-07 Yes .5mg Take 0.5 [place] 0.5 mg 0-15 mg by ity of tablet 00:00: mouth. [address] risperiDONE 2014-07 Yes .5mg Take 0.5 [place] 0.5 mg 0-15 mg by ity of tablet 00:00: mouth. [address] risperiDONE 2014-07 Yes .5mg Take 0.5 [place] 0.5 mg 0-15 mg by ity of tablet 00:00: mouth. [address] risperiDONE 2014-07 Yes .5mg Take 0.5 [place] 0.5 mg 0-15 mg by ity of tablet 00:00: mouth. [address] risperiDONE 2014-07 Yes .5mg Take 0.5 [place] 0.5 mg 0-15 mg by ity of tablet 00:00: mouth. [address] risperiDONE 2014-07 Yes .5mg Take 0.5 [place] 0.5 mg 0-15 mg by ity of tablet 00:00: mouth. [address] risperiDONE 2014-07 Yes .5mg Take 0.5 [place] 0.5 mg 0-15 mg by ity of tablet 00:00: mouth. [address] risperiDONE 2014-07 Yes .5mg Take 0.5 [place] 0.5 mg 0-15 mg by ity of tablet 00:00: mouth. [address] risperiDONE 2014-07 Yes .5mg Take 0.5 [place] 0.5 mg 0-15 mg by ity of tablet 00:00: mouth. [address] risperiDONE 2014-07 Yes .5mg Take 0.5 [place] 0.5 mg 0-15 mg by ity of tablet 00:00: mouth. [address] risperiDONE 2014-07 Yes .5mg Take 0.5 [place] 0.5 mg 0-15 mg by ity of tablet 00:00: mouth. [address] risperiDONE 2014-07 Yes .5mg Take 0.5 [place] 0.5 mg 0-15 mg by ity of tablet 00:00: mouth. [address] risperiDONE 2014-07 Yes .5mg Take 0.5 [place] 0.5 mg 0-15 mg by ity of tablet 00:00: mouth. [address] risperiDONE 2014-07 Yes .5mg Take 0.5 [place] 0.5 mg 0-15 mg by ity of tablet 00:00: mouth. [address] risperiDONE 2014-07 Yes .5mg Take 0.5 [place] 0.5 mg 0-15 mg by ity of tablet 00:00: mouth. [address] risperiDONE 2014-07 Yes .5mg Take 0.5 [place] 0.5 mg 0-15 mg by ity of tablet 00:00: mouth. [address] risperiDONE 2014-07 Yes .5mg Take 0.5 [place] 0.5 mg 0-15 mg by ity of tablet 00:00: mouth. [address] risperiDONE 2014-07 Yes .5mg Take 0.5 [place] 0.5 mg 0-15 mg by ity of tablet 00:00: mouth. [address] risperiDONE 2014-07 Yes .5mg Take 0.5 [place] 0.5 mg 0-15 mg by ity of tablet 00:00: mouth. [address] risperiDONE 2014-07 Yes .5mg Take 0.5 [place] 0.5 mg 0-15 mg by ity of tablet 00:00: mouth. [address] risperiDONE 2014-07 Yes .5mg Take 0.5 [place] 0.5 mg 0-15 mg by ity of tablet 00:00: mouth. [address] risperiDONE 2014-07 Yes .5mg Take 0.5 [place] 0.5 mg 0-15 mg by ity of tablet 00:00: mouth. [address] risperiDONE 2014-07 Yes .5mg Take 0.5 [place] 0.5 mg 0-15 mg by ity of tablet 00:00: mouth. [address] risperiDONE 2014-07 Yes .5mg Take 0.5 [place] 0.5 mg 0-15 mg by ity of tablet 00:00: mouth. [address] risperiDONE 2014-07 Yes .5mg Take 0.5 [place] 0.5 mg 0-15 mg by ity of tablet 00:00: mouth. [address] risperiDONE 2014-07 Yes .5mg Take 0.5 [place] 0.5 mg 0-15 mg by ity of tablet 00:00: mouth. [address] risperiDONE 2014-07 Yes .5mg Take 0.5 [place] 0.5 mg 0-15 mg by ity of tablet 00:00: mouth. [address] risperiDONE 2014-07 Yes .5mg Take 0.5 [place] 0.5 mg 0-15 mg by ity of tablet 00:00: mouth. [address] risperiDONE 2014-07 Yes .5mg Take 0.5 [place] 0.5 mg 0-15 mg by ity of tablet 00:00: mouth. [address] risperiDONE 2014-07 Yes .5mg Take 0.5 [place] 0.5 mg 0-15 mg by ity of tablet 00:00: mouth. [address] risperiDONE 2014-07 Yes .5mg Take 0.5 [place] 0.5 mg 0-15 mg by ity of tablet 00:00: mouth. [address] risperiDONE 2014-07 Yes .5mg Take 0.5 [place] 0.5 mg 0-15 mg by ity of tablet 00:00: mouth. [address] risperiDONE 2014-07 Yes .5mg Take 0.5 [place] 0.5 mg 0-15 mg by ity of tablet 00:00: mouth. [address] risperiDONE 2014-07 Yes .5mg Take 0.5 [place] 0.5 mg 0-15 mg by ity of tablet 00:00: mouth. [address] risperiDONE 2014-07 Yes .5mg Take 0.5 [place] 0.5 mg 0-15 mg by ity of tablet 00:00: mouth. [address] risperiDONE 2014-07 Yes .5mg Take 0.5 [place] 0.5 mg 0-15 mg by ity of tablet 00:00: mouth. [address] risperiDONE 2014-07 Yes .5mg Take 0.5 [place] 0.5 mg 0-15 mg by ity of tablet 00:00: mouth. [place] [facility] Branch risperiDONE 2014- Yes .5mg Take 0.5 [place] 0.5 mg 0-15 mg by ity of tablet 00:00: mouth. [place] [facility] Branch risperiDONE 2015- Yes .5mg Take 0.5 [place] 0.5 mg 0-15 mg by ity of tablet 00:00: mouth. [address] Branch risperiDONE 2014- Yes .5mg Take 0.5 [place] 0.5 mg 0-15 mg by ity of tablet 00:00: mouth. [address] Branch risperiDONE 2014- Yes .5mg Take 0.5 [place] 0.5 mg 0-15 mg by ity of tablet 00:00: mouth. [address] risperiDONE 2014- Yes .5mg Take 0.5 [place] 0.5 mg 0-15 mg by ity of tablet 00:00: mouth. [address] risperiDONE 2014- Yes .5mg Take 1 Univ ers 0.5 mg 0-15 tablet by ity of tablet 00:00: mouth in [address] and 1 tablet in the evening. risperiDONE 2014- Yes .5mg Take 1 Univ ers 0.5 mg 0-15 tablet by ity of tablet 00:00: mouth in [address] and 1 tablet in the evening. risperiDONE 2014- Yes .5mg Take 1 Univ ers 0.5 mg 0-15 tablet by ity of tablet 00:00: mouth in [address] and 1 tablet in the evening. risperiDONE 2014- Yes .5mg Take 1 Univ ers 0.5 mg 0-15 tablet by ity of tablet 00:00: mouth in [address] and 1 tablet in the evening. risperiDONE 2014- Yes .5mg Take 1 Univ ers 0.5 mg 0-15 tablet by ity of tablet 00:00: mouth in [address] and 1 tablet in the evening. risperiDONE 2014- Yes .5mg Take 1 Univ ers 0.5 mg 0-15 tablet by ity of tablet 00:00: mouth in [address] and 1 tablet in the evening. risperiDONE 2014- Yes .5mg Take 1 Univ ers 0.5 mg 0-15 tablet by ity of tablet 00:00: mouth in [place] 00 the Medical morning Branch and 1 tablet in the evening. risperiDONE 2014- Yes .5mg Take 1 Univ ers 0.5 mg 0-15 tablet by ity of tablet 00:00: mouth in [place] 00 the Medical morning Branch and 1 tablet in the evening. risperiDONE 2015-1 Yes .5mg Take 1 Univ ers 0.5 mg 0-15 tablet by ity of tablet 00:00: mouth in [place] 00 the Medical morning Branch and 1 tablet in the evening. risperiDONE 2015- Yes .5mg Take 1 Univ ers 0.5 mg 0-15 tablet by ity of tablet 00:00: mouth in [place] 00 the Medical morning Branch and 1 tablet in the evening. risperiDONE 2014- Yes .5mg Take 1 Univ ers 0.5 mg 0-15 tablet by ity of tablet 00:00: mouth in [place] 00 the Medical morning Branch and 1 tablet in the evening. risperiDONE 2014- Yes .5mg Take 1 Univ ers 0.5 mg 0-15 tablet by ity of tablet 00:00: mouth in [place] 00 the Medical morning Branch and 1 tablet in the evening. risperiDONE 2014- Yes .5mg Take 1 Univ ers 0.5 mg 0-15 tablet by ity of tablet 00:00: mouth in [place] 00 the Medical morning Branch and 1 tablet in the evening. risperiDONE 2015- Yes .5mg Take 1 Univ ers 0.5 mg 0-15 tablet by ity of tablet 00:00: mouth in [place] 00 the Medical morning Branch and 1 tablet in the evening. risperiDONE 2014- Yes .5mg Take 1 Univ ers 0.5 mg 0-15 tablet by ity of tablet 00:00: mouth in [place] 00 the Medical morning Branch and 1 tablet in the evening. risperiDONE 2015-1 Yes .5mg Take 1 Univ ers 0.5 mg 0-15 tablet by ity of tablet 00:00: mouth in [place] 00 the Medical morning Branch and 1 tablet in the evening. risperiDONE 2015-1 Yes .5mg Take 1 Univ ers 0.5 mg 0-15 tablet by ity of tablet 00:00: mouth in [place] 00 the Medical morning Branch and 1 tablet in the evening. risperiDONE 2014-1 Yes .5mg Take 1 Univ ers 0.5 mg 0-15 tablet by ity of tablet 00:00: mouth in [place] 00 the Medical morning Branch and 1 tablet in the evening. risperiDONE 2014- Yes .5mg Take 1 Univ ers 0.5 mg 0-15 tablet by ity of tablet 00:00: mouth in [place] 00 the Medical morning Branch and 1 tablet in the evening. risperiDONE 2014- Yes .5mg Take 1 Univ ers 0.5 mg 0-15 tablet by ity of tablet 00:00: mouth in [place] 00 the Medical morning Branch and 1 tablet in the evening. risperiDONE 2014- Yes .5mg Take 1 Univ ers 0.5 mg 0-15 tablet by ity of tablet 00:00: mouth in [place] 00 the [facility] and 1 tablet in the evening. risperiDONE 2014- Yes .5mg Take 1 [facility] ers 0.5 mg 0-15 tablet by ity of tablet 00:00: mouth in [place] 00 the [facility] morning [facility] and 1 tablet in the evening. risperiDONE 2014- Yes .5mg Take 1 [facility] ers 0.5 mg 0-15 tablet by ity of tablet 00:00: mouth in [place] [address] the Medical morning Branch and 1 tablet in the evening. risperiDONE 2014- Yes .5mg Take 1 Univ ers 0.5 mg 0-15 tablet by ity of tablet 00:00: mouth in [place] [address] the Medical morning [facility] and 1 tablet in the evening. risperiDONE 2014- Yes .5mg Take 1 [facility] ers 0.5 mg 0-15 tablet by ity of tablet 00:00: mouth in [place] 00 the [facility] morning [facility] and 1 tablet in the evening. risperiDONE 2014- Yes .5mg Take 1 [facility] ers 0.5 mg 0-15 tablet by ity of tablet 00:00: mouth in [place] [address] the Medical morning [facility] and 1 tablet in the evening. risperiDONE 2014- Yes .5mg Take 1 [facility] ers 0.5 mg 0-15 tablet by ity of tablet 00:00: mouth in [place] [address] the Medical morning [facility] and 1 tablet in the evening. ranitidine 2013-0 Yes Univers (ZANTAC) 15 7-31 ity of mg/mL syrup 00:00: [place] 00 [facility] ranitidine 2013-0 Yes Univers (ZANTAC) 15 7-31 ity of mg/mL syrup 00:00: [address] ranitidine 2013-0 Yes Univers (ZANTAC) 15 7-31 ity of mg/mL syrup 00:00: [place] 00 [facility] ranitidine 2014-0 Yes [facility] [...] syrup 00:00: [place] 00 [facility] ranitidine 2014-0 Yes [facility] [...] syrup 00:00: [place] 00 [facility] ranitidine 2022- No Univer s [...] 02-15 ity of mg/mL syrup 00:00: 00:00 [place] 00 :00 [facility] DDAVP 10 2019- No Univers mcg/spray 11-0624 ity of solution 00:00: 00:00 [place] 00 :00 [facility] MULTIVITAMI 0 Yes one daily [...] ity of 00:00: [place] [facility] MULTIVITAMI 0 Yes one daily U nivers N ORAL TAB 2-19 ity of 00:00: [place] [facility] MULTIVITAMI 0 Yes one daily [...] N ORAL TAB 2-19 ity of :: [place] [facility] MULTIVITAMI 2009-0 Yes one daily U nivers N ORAL TAB 2-19 ity of 00:00: [place] 00 [facility] MULTIVITAMI 2009-0 Yes one daily U nivers N ORAL TAB 2-19 ity of :: [place] [facility] MULTIVITAMI 2009-0 Yes one [...] ORAL TAB 2-19 ity of :00: [place] 00 [facility] MULTIVITAMI 2009-0 Yes [...] N ORAL TAB 2-19 ity of :: [place] [facility] MULTIVITAMI 2009-0 Yes one [...] ity of :00: [place] [facility] MULTIVITAMI 2008-0 Yes one daily U nivers N ORAL TAB 2-19 ity of 00:00: [place] 00 [facility] MULTIVITAMI 2009-0 Yes one daily U nivers N ORAL TAB 2-19 ity of :00: [place] 00 [facility] MULTIVITAMI 2009-0 Yes [...] ity of :00: [place] [facility] MULTIVITAMI 2008-0 Yes one [...] N ORAL TAB 2-19 ity of 00:00: [place] [address] Medical Branch MULTIVITAMI 2009-0 Yes one daily [...] ORAL TAB 2-19 ity of :00: [place] 00 [facility] MULTIVITAMI 2009-0 Yes [...] of 00:00: [place] 00 [facility] MULTIVITAMI 2009- Yes one [...] TAB 2-19 ity of 00:00: [place] 00 [facility] MULTIVITAMI 2009 Yes one daily U nivers N ORAL TAB 2-19 ity of 00:00: [place] 00 [facility] Immunizations Ordered Filled Immunization Date Status Comments Sour e Immunization Name Name HPV9 2016-04-01 Completed University of 00:00:00 [facility] HPV9 2016-04-01 Completed University of 00:00:00 [facility] HPV9 2016-04-01 Completed [facility] of 00:00:00 [facility] HPV9 2016-04-01 Completed [facility] of 00:00:00 [facility] HPV9 2016-04-01 Completed [facility] of 00:00:00 [facility] HPV9 2016-04-01 Completed [facility] of 00:00:00 [facility] HPV9 2016-04-01 Completed [facility] of 00:00:00 [facility] HPV9 2016-04-01 Completed [facility] of 00:00:00 [facility] HPV9 2016-04-01 Completed [facility] of 00:00:00 [facility] HPV9 2016-04-01 Completed [facility] of 00:00:00 [facility] HPV9 2016-04-01 Completed [facility] of 00:00:00 [facility] HPV9 2016-04-01 Completed [facility] of 00:00:00 [facility] HPV9 2016-04-01 Completed [facility] of 00:00:00 [facility] HPV9 2016-04-01 Completed [facility] of 00:00:00 [facility] HPV9 2016-04-01 Completed [facility] of 00:00:00 [facility] HPV9 2016-04-01 Completed [facility] of 00:00:00 [facility] HPV9 2016-04-01 Completed [facility] of 00:00:00 [facility] HPV9 2016-04-01 Completed University of 00:00:00 [facility] HPV9 2016-04-01 Completed University of 00:00:00 [place] [...] Branch HPV9 2016-04-01 Completed University of 00:00:00 [facility] HPV9 2016-04-01 Completed University of 00:00:00 [place] [facility] HPV9 2016-04-01 Completed [facility] of 00:00:00 [place] [facility] HPV9 2016-04-01 Completed [facility] of 00:00:00 [place] [facility] HPV9 2016-04-01 Completed [facility] of 00:00:00 [place] [facility] HPV9 2016-04-01 Completed [facility] of 00:00:00 [place] [facility] HPV9 2016-04-01 Completed [facility] of 00:00:00 [place] [facility] HPV9 2016-04-01 Completed [facility] of 00:00:00 [facility] HPV9 2016-04-01 Completed [facility] of 00:00:00 [facility] HPV9 2016-04-01 Completed [facility] of 00:00:00 [facility] HPV9 2016-04-01 Completed [facility] of 00:00:00 [facility] HPV9 2016-04-01 Completed [facility] of 00:00:00 [facility] HPV9 2016-04-01 Completed [facility] of 00:00:00 [place] [facility] HPV9 2016-04-01 Completed [facility] of 00:00:00 [facility] HPV9 2016-04-01 Completed [facility] of 00:00:00 [facility] HPV9 2016-04-01 Completed [facility] of 00:00:00 [facility] HPV9 2016-04-01 Completed [facility] of 00:00:00 [facility] HPV9 2016-04-01 Completed [facility] of 00:00:00 [facility] HPV9 2016-04-01 Completed [facility] of 00:00:00 [facility] HPV9 2016-04-01 Completed [facility] of 00:00:00 [place] [facility] HPV9 2016-04-01 Completed [facility] of 00:00:00 [place] [facility] HPV9 2016-04-01 Completed [facility] of 00:00:00 [facility] HPV9 2016-04-01 Completed [facility] of 00:00:00 [facility] HPV9 2016-04-01 Completed University [...] Branch HPV9 2015-11-18 Completed University of 00:00:00 [facility] HPV9 2015-11-18 Completed [facility] of 00:00:00 [place] [facility] HPV9 2015-11-18 Completed [facility] of 00:00:00 [place] [facility] HPV9 2015-11-18 Completed University of 00:00:00 [facility] HPV9 2015-11-18 Completed University of 00:00:00 [facility] HPV9 2015-11-18 Completed University [...] Branch HPV9 2015-11-18 Completed University of 00:00:00 [facility] HPV9 2015-11-18 Completed University of 00:00:00 [facility] HPV9 2015-11-18 Completed [facility] of 00:00:00 [place] [facility] HPV9 2015-11-18 Completed [facility] of 00:00:00 [place] [facility] HPV9 2015-11-18 Completed [facility] of 00:00:00 [place] [facility] HPV9 2015-11-18 Completed [facility] of 00:00:00 [place] [facility] HPV9 2015-11-18 Completed [facility] of 00:00:00 [place] [facility] HPV9 2015-11-18 Completed University of 00:00:00 [facility] HPV9 2015-11-18 Completed University of 00:00:00 [facility] HPV9 2015-11-18 Completed University [...] Branch HPV9 2015-11-18 Completed University of 00:00:00 [facility] HPV9 2015-11-18 Completed University [...] Branch HPV9 2015-11-18 Completed University of 00:00:00 [facility] HPV9 2015-11-18 Completed [facility] of 00:00:00 [place] [facility] HPV9 2015-11-18 Completed [facility] of 00:00:00 [place] [facility] HPV9 2015-11-18 Completed [facility] of 00:00:00 [place] [facility] HPV9 2015-11-18 Completed University of 00:00:00 [facility] HPV9 2015-11-18 Completed University of 00:00:00 [facility] HPV9 2015-11-18 Completed University of 00:00:00 [facility] HPV9 2015-11-18 Completed University of 00:00:00 [facility] HPV9 2015-11-18 Completed University [...] 2015-05-23 Completed University of 00:00:00 [facility] HPV 2015-05-23 Completed University of 00:00:00 [facility] HPV 2015-05-23 Completed University of 00:00:00 [facility] HPV 2015-05-23 Completed University of 00:00:00 [facility] HPV 2015-05-23 Completed University of 00:00:00 [facility] HPV 2015-05-23 Completed University of 00:00:00 [facility] HPV 2015-05-23 Completed University of 00:00:00 [facility] HPV 2015-05-23 Completed University of 00:00:00 [facility] HPV 2015-05-23 Completed University of 00:00:00 [facility] HPV 2015-05-23 Completed University of 00:00:00 [facility] HPV 2015-05-23 Completed University of 00:00:00 [facility] Influenza Virus 2009-06-17 Completed Universit y of Vaccine 00:00:00 [facility] Influenza Virus 2009-06-17 Completed Universit y of Vaccine 00:00:00 [facility] Influenza Virus 2009-06-17 Completed Universit y of Vaccine 00:00:00 [facility] Influenza Virus 2009-06-17 Completed Universit y of Vaccine 00:00:00 [facility] Influenza Virus 2009-06-17 Completed Universit y of Vaccine 00:00:00 [facility] Influenza Virus 2009-06-17 Completed Universit y of Vaccine 00:00:00 [facility] Influenza Virus 2009-06-17 Completed Universit y of Vaccine 00:00:00 [facility] Influenza Virus 2009-06-17 Completed Universit y of Vaccine 00:00:00 [facility] Influenza Virus 2009-06-17 Completed Universit y of Vaccine 00:00:00 [facility] Influenza Virus 2009-06-17 Completed Universit y of Vaccine 00:00:00 [facility] Influenza Virus 2009-06-17 Completed Universit y of Vaccine 00:00:00 [facility] Influenza Virus 2009-06-17 Completed Universit y of Vaccine 00:00:00 [facility] Influenza Virus 2009-06-17 Completed Universit y of Vaccine 00:00:00 [facility] Influenza Virus 2009-06-17 Completed Universit y of Vaccine 00:00:00 [facility] Influenza Virus 2009-06-17 Completed Universit y of Vaccine 00:00:00 [facility] Influenza Virus 2009-06-17 Completed Universit y of Vaccine 00:00:00 [facility] Influenza Virus 2009-06-17 Completed Universit y of Vaccine 00:00:00 [facility] Influenza Virus 2009-06-17 Completed Universit y of Vaccine 00:00:00 [facility] Influenza Virus 2009-06-17 Completed Universit y of Vaccine 00:00:00 [facility] Influenza Virus 2009-06-17 Completed Universit y of Vaccine 00:00:00 [facility] Influenza Virus 2009-06-17 Completed Universit y of Vaccine 00:00:00 [facility] Influenza Virus 2009-06-17 Completed Universit y of Vaccine 00:00:00 [facility] Influenza Virus 2009-06-17 Completed Universit y of Vaccine 00:00:00 [facility] Influenza Virus 2009-06-17 Completed Universit y of Vaccine 00:00:00 [facility] Influenza Virus 2009-06-17 Completed Universit y of Vaccine 00:00:00 [facility] Influenza Virus 2009-06-17 Completed Universit y of Vaccine 00:00:00 [facility] Influenza Virus 2009-06-17 Completed Universit y of Vaccine 00:00:00 [facility] Influenza Virus 2009-06-17 Completed Universit y of Vaccine 00:00:00 [facility] Influenza Virus 2009-06-17 Completed Universit y of Vaccine 00:00:00 [facility] Influenza Virus 2009-06-17 Completed Universit y of Vaccine 00:00:00 [facility] Influenza Virus 2009-06-17 Completed Universit y of Vaccine 00:00:00 [facility] Influenza Virus 2009-06-17 Completed Universit y of Vaccine 00:00:00 [facility] Influenza Virus 2009-06-17 Completed Universit y of Vaccine 00:00:00 [facility] Influenza Virus 2009-06-17 Completed Universit y of Vaccine 00:00:00 [facility] Influenza Virus 2009-06-17 Completed Universit y of Vaccine 00:00:00 [facility] Influenza Virus 2009-06-17 Completed Universit y of Vaccine 00:00:00 [facility] Influenza Virus 2009-06-17 Completed Universit y of Vaccine 00:00:00 [facility] Influenza Virus 2009-06-17 Completed Universit y of Vaccine 00:00:00 [facility] Influenza Virus 2009-06-17 Completed Universit y of Vaccine 00:00:00 [facility] Influenza Virus 2009-06-17 Completed Universit y of Vaccine 00:00:00 [facility] Influenza Virus 2009-06-17 Completed Universit y of Vaccine 00:00:00 [facility] Influenza Virus 2009-06-17 Completed Universit y of Vaccine 00:00:00 [facility] Influenza Virus 2009-06-17 Completed Universit y of Vaccine 00:00:00 [facility] Influenza Virus 2009-06-17 Completed Universit y of Vaccine 00:00:00 [facility] Influenza Virus 2009-06-17 Completed Universit y of Vaccine 00:00:00 [facility] Influenza Virus 2009-06-17 Completed Universit y of Vaccine 00:00:00 [facility] Influenza Virus 2009-06-17 Completed Universit y of Vaccine 00:00:00 [facility] Influenza Virus 2009-06-17 Completed Universit y of Vaccine 00:00:00 [facility] Influenza Virus 2009-06-17 Completed Universit y of Vaccine 00:00:00 [facility] Influenza Virus 2009-06-17 Completed Universit y of Vaccine 00:00:00 [facility] Influenza Virus 2009-06-17 Completed Universit y of Vaccine 00:00:00 [facility] Influenza Virus 2009-06-17 Completed Universit y of Vaccine 00:00:00 [facility] Influenza Virus 2009-06-17 Completed Universit y of Vaccine 00:00:00 [facility] Influenza Virus 2009-06-17 Completed Universit y of Vaccine 00:00:00 [facility] Influenza Virus 2009-06-17 Completed Universit y of Vaccine 00:00:00 [facility] Influenza Virus 2009-06-17 Completed Universit y of Vaccine 00:00:00 [facility] Influenza Virus 2009-06-17 Completed Universit y of Vaccine 00:00:00 [facility] Influenza Virus 2009-06-17 Completed Universit y of Vaccine 00:00:00 [facility] Influenza Virus 2009-06-17 Completed Universit y of Vaccine 00:00:00 [facility] Influenza Virus 2009-06-17 Completed Universit y of Vaccine 00:00:00 [facility] Influenza Virus 2009-06-17 Completed Universit y of Vaccine 00:00:00 [facility] Influenza Virus 2009-06-17 Completed Universit y of Vaccine 00:00:00 [facility] Influenza Virus 2009-06-17 Completed Universit y of Vaccine 00:00:00 [facility] Influenza Virus 2009-06-17 Completed Universit y of Vaccine 00:00:00 [facility] Influenza Virus 2009-06-17 Completed Universit y of Vaccine 00:00:00 [facility] Influenza Virus 2009-06-17 Completed Universit y of Vaccine 00:00:00 [facility] Influenza Virus 2009-06-17 Completed Universit y of Vaccine 00:00:00 [facility] Influenza Virus 2009-06-17 Completed Universit y of Vaccine 00:00:00 [facility] Influenza Virus 2009-06-17 Completed Universit y of Vaccine 00:00:00 [facility] Influenza Virus 2009-06-17 Completed Universit y of Vaccine 00:00:00 [facility] Influenza Virus 2009-06-17 Completed Universit y of Vaccine 00:00:00 [facility] Influenza Virus 2009-06-17 Completed Universit y of Vaccine 00:00:00 [facility] Influenza Virus 2009-06-17 Completed Universit y of Vaccine 00:00:00 [facility] Influenza Virus 2009-06-17 Completed Universit y of Vaccine 00:00:00 [facility] Influenza Virus 2009-06-17 Completed Universit y of Vaccine 00:00:00 [facility] Influenza Virus 2009-06-17 Completed Universit y of Vaccine 00:00:00 [facility] Influenza Virus 2009-06-17 Completed Universit y of Vaccine 00:00:00 [facility] Influenza Virus 2009-06-17 Completed Universit y of Vaccine 00:00:00 [facility] Influenza Virus 2009-06-17 Completed Universit y of Vaccine 00:00:00 [facility] Influenza Virus 2009-06-17 Completed Universit y of Vaccine 00:00:00 [facility] Influenza Virus 2009-06-17 Completed Universit y of Vaccine 00:00:00 [facility] Influenza Virus 2009-06-17 Completed Universit y of Vaccine 00:00:00 [facility] Influenza Virus 2009-06-17 Completed Universit y of Vaccine 00:00:00 [facility] Influenza Virus 2009-06-17 Completed Universit y of Vaccine 00:00:00 [facility] Influenza Virus 2009-06-17 Completed Universit y of Vaccine 00:00:00 [facility] Influenza Virus 2009-06-17 Completed Universit y of Vaccine 00:00:00 [facility] Influenza Virus 2009-06-17 Completed Universit y of Vaccine 00:00:00 [facility] Influenza Virus 2009-06-17 Completed Universit y of Vaccine 00:00:00 [facility] Influenza Virus 2009-06-17 Completed Universit y of Vaccine 00:00:00 [facility] Influenza Virus 2009-06-17 Completed Universit y of Vaccine 00:00:00 [facility] Influenza Virus 2009-06-17 Completed Universit y of Vaccine 00:00:00 [facility] Influenza Virus 2009-06-17 Completed Universit y of Vaccine 00:00:00 [facility] Influenza Virus 2009-06-17 Completed Universit y of Vaccine 00:00:00 [facility] Influenza Virus 2009-06-17 Completed Universit y of Vaccine 00:00:00 [facility] Influenza Virus 2009-06-17 Completed Universit y of Vaccine 00:00:00 [facility] Influenza Virus 2009-06-17 Completed Universit y of Vaccine 00:00:00 [facility] Influenza Virus 2009-06-17 Completed Universit y of Vaccine 00:00:00 [facility] Influenza Virus 2009-06-17 Completed Universit y of Vaccine 00:00:00 [facility] Influenza Virus 2009-06-17 Completed Universit y of Vaccine 00:00:00 [facility] Influenza Virus 2009-06-17 Completed Universit y of Vaccine 00:00:00 [facility] Influenza Virus 2009-06-17 Completed Universit y of Vaccine 00:00:00 [facility] Influenza Virus 2009-06-17 Completed Universit y of Vaccine 00:00:00 [facility] Influenza Virus 2009-06-17 Completed Universit y of Vaccine 00:00:00 [facility] Influenza Virus 2009-06-17 Completed Universit y of Vaccine 00:00:00 [facility] Influenza Virus 2009-06-17 Completed Universit y of Vaccine 00:00:00 [facility] Influenza Virus 2009-06-17 Completed Universit y of Vaccine 00:00:00 [facility] Influenza Virus 2009-06-17 Completed Universit y of Vaccine 00:00:00 [facility] Influenza Virus 2009-06-17 Completed Universit y of Vaccine 00:00:00 [facility] Influenza Virus 2009-06-17 Completed Universit y of Vaccine 00:00:00 [facility] Influenza Virus 2009-06-17 Completed [facility]it y of Vaccine 00:00:00 [place] [facility] Influenza Virus 2009-06-17 Completed Universit y of Vaccine 00:00:00 [facility] Influenza Virus 2009-06-17 Completed Universit y of Vaccine 00:00:00 [facility] Influenza Virus 2009-06-17 Completed Universit y of Vaccine 00:00:00 [facility] Influenza Virus 2009-06-17 Completed Universit y of Vaccine 00:00:00 [facility] Influenza Virus 2009-06-17 Completed Universit y of Vaccine 00:00:00 [facility] Influenza Virus 2009-06-17 Completed Universit y of Vaccine 00:00:00 [facility] Influenza Virus 2009-06-17 Completed Universit y of Vaccine 00:00:00 [facility] Influenza Virus 2009-06-17 Completed Universit y of Vaccine 00:00:00 [facility] Influenza Virus 2009-06-17 Completed Universit y of Vaccine 00:00:00 [facility] Influenza Virus 2009-06-17 Completed Universit y of Vaccine 00:00:00 [facility] Influenza Virus 2009-06-17 Completed Universit y of Vaccine 00:00:00 [facility] Influenza Virus 2009-06-17 Completed Universit y of Vaccine 00:00:00 [facility] Influenza Virus 2009-06-17 Completed Universit y of Vaccine 00:00:00 [facility] Influenza Virus 2009-06-17 Completed [facility]00 [facility] Influenza Virus 2009-06-17 Completed [facility] 00:00:00 [facility] Influenza Virus 2009-06-17 Completed [facility] 00[facility]00:00 [facility] Influenza Virus 2009-06-17 Completed [facility] 00:00:00 [facility] Influenza Virus 2009-06-17 Completed [facility] 00:00:00 [facility] Influenza Virus 2009-06-17 Completed [facility] 00:00:00 [facility] Influenza Virus 2009-06-17 Completed [facility] 00:00:00 [facility] Influenza Virus 2009-06-17 Completed [facility] 00:00:00 [facility] Influenza Virus 2009-06-17 Completed [facility] 00:00:00 [facility] Influenza Virus 2009-06-17 Completed [facility] 00:00:00 [facility] Influenza Virus 2009-06-17 Completed [facility] 00:00:00 [facility] Influenza Virus 2009-06-17 Completed [facility] 00:00:00 [facility] Influenza Virus 2009-06-17 Completed [facility] 00:00:00 [facility] Influenza Virus 2009-06-17 Completed [facility] 00:00:00 [facility] Influenza Virus 2009-06-17 Completed [facility] 00:00:00 [facility] Influenza Virus 2009-06-17 Completed [facility] 00:00:00 [facility] Influenza Virus 2009-06-17 Completed [facility] 00:00:00 [facility] Influenza Virus 2009-06-17 Completed [facility] 00:00:00 [facility] Influenza Virus 2009-06-17 Completed [facility] 00:00:00 [facility] Influenza Virus 2009-06-17 Completed [facility] 00:00:00 [facility] Influenza Virus 2009-06-17 Completed [facility] 00:00:00 [facility] Influenza Virus 2009-06-17 Completed [facility] 00:00:00 [facility] Influenza Virus 2009-06-17 Completed [facility] 00:00:00 [facility] Influenza Virus 2009-06-17 Completed [facility] 00:00:00 [facility] Influenza Virus 2009-06-17 Completed [facility] 00:00:00 [facility] Influenza Virus 2009-06-17 Completed [facility] 00:00:00 [facility] Influenza Virus 2009-06-17 Completed [facility] 00:00:00 [facility] Influenza Virus 2009-06-17 Completed [facility] 00:00:00 [facility] Influenza Virus 2009-06-17 Completed [facility] 00:00:00 [facility] Influenza Virus 2009-06-17 Completed [facility] 00:00:00 [facility] Influenza Virus 2009-06-17 Completed [facility] 00:00:00 [facility] Influenza Virus 2009-06-17 Completed [facility] 00:00:00 [facility] Influenza Virus 2009-06-17 Completed [facility] 00:00:00 [facility] Influenza Virus 2009-06-17 Completed [facility] 00:00:00 [facility] Influenza Virus 2009-06-17 Completed [facility] 00:00:00 [facility] Influenza Virus 2009-06-17 Completed [facility] 00:00:00 [facility] Influenza Virus 2009-06-17 Completed [facility] 00:00:00 [facility] Influenza Virus 2009-06-17 Completed [facility] 00:00:00 [facility] Influenza Virus 2009-06-17 Completed [facility] 00:00:00 [facility] Influenza Virus 2009-06-17 Completed [facility] 00:00:00 [facility] Influenza Virus 2009-06-17 Completed [facility] 00:00:00 [facility] Influenza Virus 2009-06-17 Completed [facility] 00:00:00 [facility] Influenza Virus 2009-06-17 Completed [facility] 00:00:00 [facility] Influenza Virus 2009-06-17 Completed [facility] 00:00:00 [facility] Influenza Virus 2009-06-17 Completed [facility] 00:00:00 [facility] Influenza Virus 2009-06-17 Completed [facility] 00:00:00 [facility] Influenza Virus 2009-06-17 Completed [facility] 00:00:00 [facility] Influenza Virus 2007-05-05 Completed [facility] 00:00:00 [facility] Influenza Virus 2007-05-05 Completed [facility] 00:00:00 [facility] Influenza Virus 2007-05-05 Completed [facility] 00:00:00 [facility] Influenza Virus 2007-05-05 Completed [facility] 00:00:00 [facility] Influenza Virus 2007-05-05 Completed [facility] 00:00:00 [facility] Influenza Virus 2007-05-05 Completed [facility] 00:00:00 [facility] Influenza Virus 2007-05-05 Completed [facility] 00:00:00 [facility] Influenza Virus 2007-05-05 Completed [facility] 00:00:00 [facility] Influenza Virus 2007-05-05 Completed [facility] 00:00:00 [facility] Influenza Virus 2007-05-05 Completed [facility] 00:00:00 [facility] Influenza Virus 2007-05-05 Completed [facility]ine 00:00:00 [facility] Influenza Virus 2007-05-05 Completed [facility] 00:00:00 [facility] Influenza Virus 2007-05-05 Completed [facility] 00:00:00 [facility] Influenza Virus 2007-05-05 Completed [facility] 00:00:00 [facility] Influenza Virus 2007-05-05 Completed [facility] 00:00:00 [facility] Influenza Virus 2007-05-05 Completed [facility] 00:00:00 [facility] Influenza Virus 2007-05-05 Completed [facility] 00:00:00 [facility] Influenza Virus 2007-05-05 Completed [facility] 00:00:00 [facility] Influenza Virus 2007-05-05 Completed [facility] 00:00:00 [facility] Influenza Virus 2007-05-05 Completed [facility] 00:00:00 [facility] Influenza Virus 2007-05-05 Completed [facility] 00:00:00 [facility] Influenza Virus 2007-05-05 Completed [facility] 00:00:00 [facility] Influenza Virus 2007-05-05 Completed [facility] 00:00:00 [facility] Influenza Virus 2007-05-05 Completed [facility] 00:00:00 [facility] Influenza Virus 2007-05-05 Completed [facility] 00:00:00 [facility] Influenza Virus 2007-05-05 Completed [facility] 00:00:00 [facility] Influenza Virus 2007-05-05 Completed [facility] 00:00:00 [facility] Influenza Virus 2007-05-05 Completed [facility] 00:00:00 [facility] Influenza Virus 2007-05-05 Completed [facility] 00:00:00 [facility] Influenza Virus 2007-05-05 Completed [facility]ine 00:00:00 [facility] Influenza Virus 2007-05-05 Completed [facility] 00:00:00 [facility] Influenza Virus 2007-05-05 Completed [facility]ine 00:00:00 [facility] Influenza Virus 2007-05-05 Completed [facility] 00:00:00 [facility] Influenza Virus 2007-05-05 Completed [facility] 00:00:00 [facility] Influenza Virus 2007-05-05 Completed [facility] 00:00:00 [facility] Influenza Virus 2007-05-05 Completed [facility] 00:00:00 [facility] Influenza Virus 2007-05-05 Completed [facility] 00:00:00 [facility] Influenza Virus 2007-05-05 Completed [facility] 00:00:00 [facility] Influenza Virus 2007-05-05 Completed [facility] 00:00:00 [facility] Influenza Virus 2007-05-05 Completed [facility] 00:00:00 [facility] Influenza Virus 2007-05-05 Completed [facility] 00:00:00 [facility] Influenza Virus 2007-05-05 Completed [facility] 00:00:00 [facility] Influenza Virus 2007-05-05 Completed [facility] 00:00:00 [facility] Influenza Virus 2007-05-05 Completed [facility] 00:00:00 [facility] Influenza Virus 2007-05-05 Completed [facility] 00:00:00 [facility] Influenza Virus 2007-05-05 Completed [facility] 00:00:00 [facility] Influenza Virus 2007-05-05 Completed [facility] 00:00:00 [facility] Influenza Virus 2007-05-05 Completed [facility] 00:00:00 [facility] Influenza Virus 2007-05-05 Completed [facility] 00:00:00 [facility] Influenza Virus 2007-05-05 Completed [facility] 00:00:00 [facility] Influenza Virus 2007-05-05 Completed [facility]ine 00:00:00 [facility] Influenza Virus 2007-05-05 Completed [facility] 00:00:00 [facility] Influenza Virus 2007-05-05 Completed [facility] 00:00:00 [facility] Influenza Virus 2007-05-05 Completed [facility] 00:00:00 [facility] Influenza Virus 2007-05-05 Completed [facility] 00:00:00 [facility] Influenza Virus 2007-05-05 Completed [facility] 00:00:00 [facility] Influenza Virus 2007-05-05 Completed [facility]ine 00:00:00 [facility] Influenza Virus 2007-05-05 Completed [facility] 00:00:00 [facility] Influenza Virus 2007-05-05 Completed [facility] 00:00:00 [facility] Influenza Virus 2007-05-05 Completed [facility]ine 00:00:00 [facility] Influenza Virus 2007-05-05 Completed [facility] 00:00:00 [facility] Influenza Virus 2007-05-05 Completed [facility] 00:00:00 [facility] Influenza Virus 2007-05-05 Completed [facility] 00:00:00 [facility] Influenza Virus 2007-05-05 Completed [facility]ine 00:00:00 [facility] Influenza Virus 2007-05-05 Completed [facility]ine 00:00:00 [facility] Influenza Virus 2007-05-05 Completed [facility]ine 00:00:00 [facility] Influenza Virus 2007-05-05 Completed [facility]ine 00:00:00 [facility] Influenza Virus 2007-05-05 Completed [facility]ine 00:00:00 [facility] Influenza Virus 2007-05-05 Completed [facility]ine 00:00:00 [facility] Influenza Virus 2007-05-05 Completed [facility]ine 00:00:00 [facility] Influenza Virus 2007-05-05 Completed [facility]ine 00:00:00 [facility] Influenza Virus 2007-05-05 Completed [facility]ine 00:00:00 [facility] Influenza Virus 2007-05-05 Completed [facility]ine 00:00:00 [facility] Influenza Virus 2007-05-05 Completed [facility] 00:00:00 [facility] Influenza Virus 2007-05-05 Completed [facility]ine 00:00:00 [facility] Influenza Virus 2007-05-05 Completed [facility] 00:00:00 [facility] Influenza Virus 2007-05-05 Completed [facility]ine 00:00:00 [facility] Influenza Virus 2007-05-05 Completed [facility] 00:00:00 [facility] Influenza Virus 2007-05-05 Completed [facility]ine 00:00:00 [facility] Influenza Virus 2007-05-05 Completed [facility] 00:00:00 [facility] Influenza Virus 2007-05-05 Completed [facility] 00:00:00 [facility] Influenza Virus 2007-05-05 Completed [facility] 00:00:00 [facility] Influenza Virus 2007-05-05 Completed [facility] 00:00:00 [facility] Influenza Virus 2007-05-05 Completed [facility] 00:00:00 [facility] Influenza Virus 2007-05-05 Completed [facility] 00:00:00 [facility] Influenza Virus 2007-05-05 Completed [facility] 00:00:00 [facility] Influenza Virus 2007-05-05 Completed [facility]ine 00:00:00 [facility] Influenza Virus 2007-05-05 Completed [facility]ine 00:00:00 [facility] Influenza Virus 2007-05-05 Completed [facility] 00:00:00 [facility] Influenza Virus 2007-05-05 Completed [facility]ine 00:00:00 [facility] Influenza Virus 2007-05-05 Completed [facility]ine 00:00:00 [facility] Influenza Virus 2007-05-05 Completed [facility]ine 00:00:00 [facility] Influenza Virus 2007-05-05 Completed [facility]ine 00:00:00 [facility] Influenza Virus 2007-05-05 Completed [facility] 00:00:00 [facility] Influenza Virus 2007-05-05 Completed [facility] 00:00:00 [facility] Influenza Virus 2007-05-05 Completed [facility]ine 00:00:00 [facility] Influenza Virus 2007-05-05 Completed [facility]ine 00:00:00 [facility] Influenza Virus 2007-05-05 Completed [facility] 00:00:00 [facility] Influenza Virus 2007-05-05 Completed [facility] 00:00:00 [facility] Influenza Virus 2007-05-05 Completed [facility] 00:00:00 [facility] Influenza Virus 2007-05-05 Completed [facility] 00:00:00 [facility] Influenza Virus 2007-05-05 Completed [facility]ine 00:00:00 [facility] Influenza Virus 2007-05-05 Completed [facility] 00:00:00 [facility] Influenza Virus 2007-05-05 Completed [facility]ine 00:00:00 [facility] Influenza Virus 2007-05-05 Completed [facility]ine 00:00:00 [facility] Influenza Virus 2007-05-05 Completed [facility]ine 00:00:00 [facility] Influenza Virus 2007-05-05 Completed [facility]ine 00:00:00 [facility] Influenza Virus 2007-05-05 Completed [facility]ine 00:00:00 [facility] Influenza Virus 2007-05-05 Completed [facility]ine 00:00:00 [facility] Influenza Virus 2007-05-05 Completed [facility]ine 00:00:00 [facility] Influenza Virus 2007-05-05 Completed [facility]ine 00:00:00 [facility] Influenza Virus 2007-05-05 Completed [facility] Vaccine 00:00:00 [facility] Influenza Virus 2007-05-05 Completed [facility] Vaccine 00:00:00 [facility] Influenza Virus 2007-05-05 Completed [facility] Vaccine 00:00:00 [facility] Influenza Virus 2007-05-05 Completed [facility] Vaccine 00:00:00 [facility] Influenza Virus 2007-05-05 Completed [facility] Vaccine 00:00:00 [facility] Influenza Virus 2007-05-05 Completed [facility] Vaccine 00:00:00 [facility] Influenza Virus 2007-05-05 Completed [facility] Vaccine 00:00:00 [facility] Influenza Virus 2007-05-05 Completed [facility] Vaccine 00:00:00 [facility] Influenza Virus 2007-05-05 Completed [facility]ine 00:00:00 [facility] Influenza Virus 2007-05-05 Completed [facility] Vaccine 00:00:00 [facility] Influenza Virus 2007-05-05 Completed [facility] Vaccine 00:00:00 [facility] Influenza Virus 2007-05-05 Completed [facility] Vaccine 00:00:00 [facility] Influenza Virus 2007-05-05 Completed [facility] Vaccine 00:00:00 [facility] Influenza Virus 2007-05-05 Completed [facility] Vaccine 00:00:00 [facility] Influenza Virus 2007-05-05 Completed [facility] Vaccine 00:00:00 [facility] Influenza Virus 2007-05-05 Completed [facility] Vaccine 00:00:00 [facility] Influenza Virus 2007-05-05 Completed [facility] Vaccine 00:00:00 [facility] Influenza Virus 2007-05-05 Completed [facility] Vaccine 00:00:00 [facility] Influenza Virus 2007-05-05 Completed [facility] Vaccine 00:00:00 [facility] Influenza Virus 2007-05-05 Completed [facility] Vaccine 00:00:00 [facility] Influenza Virus 2007-05-05 Completed [facility] Vaccine 00:00:00 [facility] Influenza Virus 2007-05-05 Completed [facility] Vaccine 00:00:00 [facility] Influenza Virus 2007-05-05 Completed [facility] Vaccine 00:00:00 [facility] Influenza Virus 2007-05-05 Completed [facility] Vaccine 00:00:00 [facility] Influenza Virus 2007-05-05 Completed [facility] Vaccine 00:00:00 [facility] Influenza Virus 2007-05-05 Completed [facility] Vaccine 00:00:00 [facility] Influenza Virus 2007-05-05 Completed [facility] Vaccine 00:00:00 [facility] Influenza Virus 2007-05-05 Completed [facility] Vaccine 00:00:00 [facility] Influenza Virus 2007-05-05 Completed [facility] Vaccine 00:00:00 [facility] Influenza Virus 2007-05-05 Completed [facility] Vaccine 00:00:00 [facility] Influenza Virus 2007-05-05 Completed [facility] Vaccine 00:00:00 [facility] Influenza Virus 2007-05-05 Completed [facility] Vaccine 00:00:00 [facility] Influenza Virus 2007-05-05 Completed [facility] Vaccine 00:00:00 [facility] Influenza Virus 2007-05-05 Completed [facility] Vaccine 00:00:00 [facility] Influenza Virus 2007-05-05 Completed [facility] Vaccine 00:00:00 [facility] Influenza Virus 2007-05-05 Completed [facility] Vaccine 00:00:00 [facility] Influenza Virus 2007-05-05 Completed [facility] Vaccine 00:00:00 [facility] Influenza Virus 2007-05-05 Completed [facility] Vaccine 00:00:00 [facility] Influenza Virus 2007-05-05 Completed [facility] Vaccine 00:00:00 [facility] Influenza Virus 2007-05-05 Completed [facility] Vaccine 00:00:00 [facility] Influenza Virus 2007-05-05 Completed [facility]ine 00:00:00 [facility] Influenza Virus 2007-05-05 Completed [facility]ine 00:00:00 [facility] Influenza Virus 2007-05-05 Completed [facility]ine 00:00:00 [facility] Influenza Virus 2007-05-05 Completed [facility]ine 00:00:00 [facility] Influenza Virus 2007-05-05 Completed [facility] 00:00:00 [facility] Influenza Virus 2007-05-05 Completed [facility] [facility] Influenza Virus 2007-05-05 Completed [facility] Vaccine 00:00:00 [facility] Influenza Virus 2007-05-05 Completed [facility] Vaccine 00:00:00 [facility] Influenza Virus 2007-05-05 Completed [facility] Vaccine 00:00:00 [facility] Influenza Virus 2007-05-05 Completed [facility] Vaccine 00:00:00 [facility] Influenza Virus 2007-05-05 Completed [facility] Vaccine 00:00:00 [facility] Influenza Virus 2007-05-05 Completed [facility] Vaccine 00:00:00 [facility] Influenza Virus 2007-05-05 Completed [facility] Vaccine 00:00:00 [facility] Influenza Virus 2007-05-05 Completed [facility] Vaccine 00:00:00 [facility] Influenza Virus 2007-05-05 Completed [facility] Vaccine 00:00:00 [facility] Influenza Virus 2007-05-05 Completed [facility] Vaccine 00:00:00 [facility] Influenza Virus 2007-05-05 Completed [facility] of Vaccine 00:00:00 [facility] Influenza Virus 2007-05-05 Completed [facility] of Vaccine 00:00:00 [facility] Influenza Virus 2007-05-05 Completed [facility] of Vaccine 00:00:00 [facility] Influenza Virus 2005-06-18 Completed [facility]it y of Vaccine - Whole 00:00:00 [facility] Influenza Virus 2005-06-18 Completed [facility]it y of Vaccine - Whole 00:00:00 [facility] Influenza Virus 2005-06-18 Completed [facility]it [facility] of Vaccine - Whole 00:00:00 [facility] Influenza Virus 2005-06-18 Completed [facility]it y of Vaccine - Whole 00:00:00 [facility] Influenza Virus 2005-06-18 Completed [facility]it y of Vaccine - Whole 00:00:00 [facility] Influenza Virus 2005-06-18 Completed [facility]it y of Vaccine - Whole 00:00:00 [facility] Influenza Virus 2005-06-18 Completed [facility]it y of Vaccine - Whole 00:00:00 [facility] Influenza Virus 2005-06-18 Completed [facility]it [facility] of Vaccine - Whole 00:00:00 [facility] Influenza Virus 2005-06-18 Completed [facility]it y of Vaccine - Whole 00:00:00 [facility] Influenza Virus 2005-06-18 Completed [facility]it y of Vaccine - Whole 00:00:00 [facility] Influenza Virus 2005-06-18 Completed [facility]it y of Vaccine - Whole 00:00:00 [facility] Influenza Virus 2005-06-18 Completed [facility]it y of Vaccine - Whole 00:00:00 [facility] Influenza Virus 2005-06-18 Completed [facility]it y of Vaccine - Whole 00:00:00 [facility] Influenza Virus 2005-06-18 Completed [facility]it y of Vaccine - Whole 00:00:00 [facility] Influenza Virus 2005-06-18 Completed [facility]it y of Vaccine - Whole 00:00:00 [facility] Influenza Virus 2005-06-18 Completed [facility]it y of Vaccine - Whole 00:00:00 [facility] Influenza Virus 2005-06-18 Completed [facility]it y of Vaccine - Whole 00:00:00 [facility] Influenza Virus 2005-06-18 Completed [facility]it y of Vaccine - Whole 00:00:00 [facility] Influenza Virus 2005-06-18 Completed [facility]it y of Vaccine - Whole 00:00:00 [facility] Influenza Virus 2005-06-18 Completed [facility]it y of Vaccine - Whole 00:00:00 [facility] Influenza Virus 2005-06-18 Completed [facility] of Vaccine - Whole 00:00:00 [facility] Influenza Virus 2005-06-18 Completed [facility]it y of Vaccine - Whole 00:00:00 [facility] Influenza Virus 2005-06-18 Completed [facility]it y of Vaccine - Whole 00:00:00 [facility] Influenza Virus 2005-06-18 Completed [facility]it y of Vaccine - Whole 00:00:00 [facility] Influenza Virus 2005-06-18 Completed [facility] y of Vaccine - Whole 00:00:00 [facility] Influenza Virus 2005-06-18 Completed [facility] of Vaccine - Whole 00:00:00 [facility] Influenza Virus 2005-06-18 Completed [facility]it y of Vaccine - Whole 00:00:00 [facility] Influenza Virus 2005-06-18 Completed [facility]it y of Vaccine - Whole 00:00:00 [facility] Influenza Virus 2005-06-18 Completed [facility] of Vaccine - Whole 00:00:00 [facility] Influenza Virus 2005-06-18 Completed [facility]it [facility] of Vaccine - Whole 00:00:00 [facility] Influenza Virus 2005-06-18 Completed [facility]it y of Vaccine - Whole 00:00:00 [facility] Influenza Virus 2005-06-18 Completed [facility] of Vaccine - Whole 00:00:00 [facility] Influenza Virus 2005-06-18 Completed [facility]it [facility] of Vaccine - Whole 00:00:00 [facility] Influenza Virus 2005-06-18 Completed [facility]it [facility] of Vaccine - Whole 00:00:00 [facility] Influenza Virus 2005-06-18 Completed [facility]it y of Vaccine - Whole 00:00:00 [facility] Influenza Virus 2005-06-18 Completed [facility]it y of Vaccine - Whole 00:00:00 [facility] Influenza Virus 2005-06-18 Completed [facility] of Vaccine - Whole 00:00:00 [facility] Influenza Virus 2005-06-18 Completed [facility]it y of Vaccine - Whole 00:00:00 [facility] Influenza Virus 2005-06-18 Completed [facility] of Vaccine - Whole 00:00:00 [facility] Influenza Virus 2005-06-18 Completed [facility]it y of Vaccine - Whole 00:00:00 [facility] Influenza Virus 2005-06-18 Completed [facility]it y of Vaccine - Whole 00:00:00 [facility] Influenza Virus 2005-06-18 Completed [facility] y of Vaccine - Whole 00:00:00 [facility] Influenza Virus 2005-06-18 Completed [facility]it y of Vaccine - Whole 00:00:00 [facility] Influenza Virus 2005-06-18 Completed [facility] of Vaccine - Whole 00:00:00 [facility] Influenza Virus 2005-06-18 Completed [facility] y of Vaccine - Whole 00:00:00 [facility] Influenza Virus 2005-06-18 Completed [facility] y of Vaccine - Whole 00:00:00 [facility] Influenza Virus 2005-06-18 Completed [facility]it y of Vaccine - Whole 00:00:00 [facility] Influenza Virus 2005-06-18 Completed [facility] of Vaccine - Whole 00:00:00 [facility] Influenza Virus 2005-06-18 Completed [facility] y of Vaccine - Whole 00:00:00 [facility] Influenza Virus 2005-06-18 Completed [facility] y of Vaccine - Whole 00:00:00 [facility] Influenza Virus 2005-06-18 Completed [facility] y of Vaccine - Whole 00:00:00 [facility] Influenza Virus 2005-06-18 Completed [facility] y of Vaccine - Whole 00:00:00 [facility] Influenza Virus 2005-05-07 Completed [facility]it y of Vaccine - Whole 00:00:00 [facility] Influenza Virus 2005-05-07 Completed [facility]it y of Vaccine - Whole 00:00:00 [facility] Influenza Virus 2005-05-07 Completed [facility] y of Vaccine - Whole 00:00:00 [facility] Influenza Virus 2005-05-07 Completed [facility] y of Vaccine - Whole 00:00:00 [facility] Influenza Virus 2005-05-07 Completed [facility] of Vaccine - Whole 00:00:00 [facility] Influenza Virus 2005-05-07 Completed [facility] y of Vaccine - Whole 00:00:00 [facility] Influenza Virus 2005-05-07 Completed [facility] y of Vaccine - Whole 00:00:00 [facility] Influenza Virus 2005-05-07 Completed [facility] y of Vaccine - Whole 00:00:00 [facility] Influenza Virus 2005-05-07 Completed [facility] y of Vaccine - Whole 00:00:00 [facility] Influenza Virus 2005-05-07 Completed [facility] y of Vaccine - Whole 00:00:00 [facility] Influenza Virus 2005-05-07 Completed [facility] y of Vaccine - Whole 00:00:00 [facility] Influenza Virus 2005-05-07 Completed [facility] y of Vaccine - Whole 00:00:00 [facility] Influenza Virus 2005-05-07 Completed [facility]it y of Vaccine - Whole 00:00:00 [facility] Influenza Virus 2005-05-07 Completed [facility] y of Vaccine - Whole 00:00:00 [facility] Influenza Virus 2005-05-07 Completed [facility]it y of Vaccine - Whole 00:00:00 [facility] Influenza Virus 2005-05-07 Completed [facility] y of Vaccine - Whole 00:00:00 [facility] Influenza Virus 2005-05-07 Completed [facility] y of Vaccine - Whole 00:00:00 [facility] Influenza Virus 2005-05-07 Completed [facility] y of Vaccine - Whole 00:00:00 [facility] Influenza Virus 2005-05-07 Completed [facility] y of Vaccine - Whole 00:00:00 [facility] Influenza Virus 2005-05-07 Completed [facility] y of Vaccine - Whole 00:00:00 [facility] Influenza Virus 2005-05-07 Completed [facility] y of Vaccine - Whole 00:00:00 [facility] Influenza Virus 2005-05-07 Completed [facility] y of Vaccine - Whole 00:00:00 [facility] Influenza Virus 2005-05-07 Completed [facility] of Vaccine - Whole 00:00:00 [facility] Influenza Virus 2005-05-07 Completed [facility] y of Vaccine - Whole 00:00:00 [facility] Influenza Virus 2005-05-07 Completed [facility] y of Vaccine - Whole 00:00:00 [facility] Influenza Virus 2005-05-07 Completed [facility]it y of Vaccine - Whole 00:00:00 [facility] Influenza Virus 2005-05-07 Completed [facility]it y of Vaccine - Whole 00:00:00 [facility] Influenza Virus 2005-05-07 Completed [facility] y of Vaccine - Whole 00:00:00 [facility] Influenza Virus 2005-05-07 Completed [facility] y of Vaccine - Whole 00:00:00 [facility] Influenza Virus 2005-05-07 Completed [facility] of Vaccine - Whole 00:00:00 [facility] Influenza Virus 2005-05-07 Completed [facility] y of Vaccine - Whole 00:00:00 [facility] Influenza Virus 2005-05-07 Completed [facility] y of Vaccine - Whole 00:00:00 [facility] Influenza Virus 2005-05-07 Completed [facility] y of Vaccine - Whole 00:00:00 [facility] Influenza Virus 2005-05-07 Completed [facility] of Vaccine - Whole 00:00:00 [facility] Influenza Virus 2005-05-07 Completed [facility] y of Vaccine - Whole 00:00:00 [facility] Influenza Virus 2005-05-07 Completed [facility] of Vaccine - Whole 00:00:00 [facility] Influenza Virus 2005-05-07 Completed [facility] y of Vaccine - Whole 00:00:00 [facility] Influenza Virus 2005-05-07 Completed [facility] y of Vaccine - Whole 00:00:00 [facility] Influenza Virus 2005-05-07 Completed [facility] y of Vaccine - Whole 00:00:00 [facility] Influenza Virus 2005-05-07 Completed [facility] of Vaccine - Whole 00:00:00 [facility] Influenza Virus 2005-05-07 Completed [facility] y of Vaccine - Whole 00:00:00 [facility] Influenza Virus 2005-05-07 Completed [facility] y of Vaccine - Whole 00:00:00 [facility] Influenza Virus 2005-05-07 Completed [facility] of Vaccine - Whole 00:00:00 [facility] Influenza Virus 2005-05-07 Completed [facility] y of Vaccine - Whole 00:00:00 [facility] Influenza Virus 2005-05-07 Completed [facility] of Vaccine - Whole 00:00:00 [facility] Influenza Virus 2005-05-07 Completed [facility] y of Vaccine - Whole 00:00:00 [facility] Influenza Virus 2005-05-07 Completed [facility] of Vaccine - Whole 00:00:00 [facility] Influenza Virus 2005-05-07 Completed [facility] of Vaccine - Whole 00:00:00 [facility] Influenza Virus 2005-05-07 Completed [facility] y of Vaccine - Whole 00:00:00 [facility] Influenza Virus 2005-05-07 Completed [facility] y of Vaccine - Whole 00:00:00 [facility] Influenza Virus 2005-05-07 Completed [facility] y of Vaccine - Whole 00:00:00 [facility] Influenza Virus 2005-05-07 Completed [facility]it y of Vaccine - Whole 00:00:00 [facility] HIB 4 Dose Schedule 2004-01-31 Completed Unive rsity of 00:00:00 [facility] Hep B, Adol or Pedi 2004-01-31 Completed Unive rsity of Dosage 00:00:00 [facility] Pediarix (dtap/hep 2004-01-31 Completed Univer sity of B/ipv) 00:00:00 [facility] HIB 4 Dose Schedule 2004-01-31 Completed Unive rsity of 00:00:00 [facility] Hep B, Adol or Pedi 2004-01-31 Completed Unive rsity of Dosage 00:00:00 [facility] Pediarix (dtap/hep 2004-01-31 Completed Univer sity of B/ipv) 00:00:00 [facility] HIB 4 Dose Schedule 2004-01-31 Completed Unive rsity of 00:00:00 [facility] Hep B, Adol or Pedi 2004-01-31 Completed Unive rsity of Dosage 00:00:00 [facility] Pediarix (dtap/hep 2004-01-31 Completed Univer sity of B/ipv) 00:00:00 [facility] HIB 4 Dose Schedule 2004-01-31 Completed Unive rsity of 00:00:00 [facility] Hep B, Adol or Pedi 2004-01-31 Completed Unive rsity of Dosage 00:00:00 [facility] Pediarix (dtap/hep 2004-01-31 Completed Univer sity of B/ipv) 00:00:00 [facility] HIB 4 Dose Schedule 2004-01-31 Completed Unive rsity of 00:00:00 [facility] Hep B, Adol or Pedi 2004-01-31 Completed Unive rsity of Dosage 00:00:00 [facility] Pediarix (dtap/hep 2004-01-31 Completed Univer sity of B/ipv) 00:00:00 [facility] HIB 4 Dose Schedule 2004-01-31 Completed Unive [...] 2004-01-31 Completed Univer sity of B/ipv) 00:00:00 [facility] HIB 4 Dose Schedule [...] 2004-01-31 Completed Univer sity of B/ipv) 00:00:00 [facility] HIB 4 Dose Schedule [...] Univer sity of B/ipv) 00:00:00 [facility] HIB 4 Dose Schedule 2004-01-31 Completed Unive rsity of 00:00:00 [facility] Hep B, Adol or Pedi 2004-01-31 Completed Unive rsity of Dosage 00:00:00 [facility] Pediarix (dtap/hep 2004-01-31 Completed Univer sity of B/ipv) 00:00:00 [facility] HIB 4 Dose Schedule 2004-01-31 Completed Unive rsity of 00:00:00 [facility] Hep B, Adol or Pedi 2004-01-31 Completed Unive rsity of Dosage 00:00:00 [facility] Pediarix (dtap/hep 2004-01-31 Completed Univer sity of B/ipv) 00:00:00 [facility] HIB 4 Dose Schedule 2004-01-31 Completed Unive rsity of 00:00:00 [facility] Hep B, Adol or Pedi 2004-01-31 Completed Unive rsity of Dosage 00:00:00 [facility] Pediarix (dtap/hep 2004-01-31 Completed Univer sity of B/ipv) 00:00:00 [facility] HIB 4 Dose Schedule 2004-01-31 Completed Unive [...] Univer sity of B/ipv) 00:00:00 [facility] HIB 4 Dose Schedule 2004-01-31 Completed Unive [...] Univer sity of B/ipv) 00:00:00 [facility] HIB 4 Dose Schedule 2004-01-31 Completed Unive rsity of 00:00:00 [facility] Hep B, Adol or Pedi 2004-01-31 Completed Unive rsity of Dosage 00:00:00 [facility] Pediarix (dtap/hep 2004-01-31 Completed Univer sity of B/ipv) 00:00:00 [facility] HIB 4 Dose Schedule 2004-01-31 Completed Unive rsity of 00:00:00 [facility] Hep B, Adol or Pedi 2004-01-31 Completed Unive rsity of Dosage 00:00:00 [facility] Pediarix (dtap/hep 2004-01-31 Completed Univer sity of B/ipv) 00:00:00 [facility] HIB 4 Dose Schedule 2004-01-31 Completed Unive rsity of 00:00:00 [facility] Hep B, Adol or Pedi 2004-01-31 Completed Unive rsity of Dosage 00:00:00 [facility] Pediarix (dtap/hep 2004-01-31 Completed Univer sity of B/ipv) 00:00:00 [facility] HIB 4 Dose Schedule 2004-01-31 Completed Unive rsity of 00:00:00 [facility] Hep B, Adol or Pedi 2004-01-31 Completed Unive rsity of Dosage 00:00:00 [facility] Pediarix (dtap/hep 2004-01-31 Completed Univer sity of B/ipv) 00:00:00 [facility] HIB 4 Dose Schedule 2004-01-31 Completed Unive [...] Univer sity of B/ipv) 00:00:00 [facility] HIB 4 Dose Schedule 2004-01-31 Completed Unive [...] Univer sity of B/ipv) 00:00:00 [facility] HIB 4 Dose Schedule 2004-01-31 Completed Unive rsity of 00:00:00 [facility] Hep B, Adol or Pedi 2004-01-31 Completed Unive rsity of Dosage 00:00:00 [facility] Pediarix (dtap/hep 2004-01-31 Completed Univer sity of B/ipv) 00:00:00 [facility] HIB 4 Dose Schedule 2004-01-31 Completed Unive [...] Univer sity of B/ipv) 00:00:00 [facility] HIB 4 Dose Schedule 2004-01-31 Completed Unive rsity of 00:00:00 [facility] Hep B, Adol or Pedi 2004-01-31 Completed Unive rsity of Dosage 00:00:00 [facility] Pediarix (dtap/hep 2004-01-31 Completed Univer sity of B/ipv) 00:00:00 [facility] HIB 4 Dose Schedule [...] rsity of Dosage 00:00:00 [facility] HIB 4 Dose Schedule 2004-01-31 Completed Unive rsity of 00:00:00 [facility] Hep B, Adol or Pedi 2004-01-31 Completed Unive rsity of Dosage 00:00:00 [facility] Pediarix (dtap/hep 2004-01-31 Completed Univer sity of B/ipv) 00:00:00 [facility] Pediarix (dtap/hep 2004-01-31 Completed Univer sity of B/ipv) 00:00:00 [facility] HIB 4 Dose Schedule 2004-01-31 Completed Unive rsity of 00:00:00 [facility] Hep B, Adol or Pedi 2004-01-31 Completed Unive rsity of Dosage 00:00:00 [facility] Pediarix (dtap/hep 2004-01-31 Completed Univer sity of B/ipv) 00:00:00 [facility] Vital Signs Vital Name Observation Time Observation Value Comments Source Systolic blood 2023-02-09 19:28:00 120 mm[Hg] Univer sity of pressure [facility] Diastolic blood 2023-02-09 19:28:00 81 mm[Hg] Unive rsity of pressure [facility] Heart rate 2023-02-09 19:28:00 80 /min [facility]i ty of [facility] Body height 2023-02-09 19:28:00 172.7 cm Universi ty [facility] Body weight 2023-02-09 19:28:00 84.55 kg Universi ty [facility] BMI 2023-02-09 19:28:00 28.34 kg/m2 [facility] ty [facility] Systolic blood 2023-02-01 18:22:00 134 mm[Hg] Univer sity of pressure [facility] Diastolic blood 2023-02-01 18:22:00 84 mm[Hg] Unive rsity of pressure [facility] Heart rate 2023-02-01 18:22:00 85 /min [facility]i ty of [facility] Body height 2023-02-01 18:22:00 172.7 cm [facility]i ty of [facility] Body weight 2023-02-01 18:22:00 83.961 kg Universi ty [facility] BMI 2023-02-01 18:22:00 28.14 kg/m2 [facility] ty [facility] Systolic blood 2023-02-01 06:44:00 131 mm[Hg] Univer sity of pressure [facility] Diastolic blood 2023-02-01 06:44:00 78 mm[Hg] Unive rsity of pressure [facility] Heart rate 2023-02-01 06:44:00 96 /min [facility] Respiratory rate 2023-02-01 06:44:00 22 /min Univ ersity of [facility] Oxygen saturation in 2023-02-01 06:44:00 98 /min [facility] of Arterial blood by [place] [employer] [facility] Body temperature 2023-02-01 03:25:00 36.78 [place] Univ ers[facility] of [facility] Body height 2023-02-01 03:25:00 172.7 cm [facility] Body weight 2023-02-01 03:25:00 83.915 kg [facility] BMI 2023-02-01 03:25:00 28.13 kg/m2 [facility] Systolic blood 2023-01-28 20:10:00 130 mm[Hg] Univer sity of pressure [facility] Diastolic blood 2023-01-28 20:10:00 83 mm[Hg] Unive rsity of pressure [facility] Heart rate 2023-01-28 20:10:00 78 /min [facility] Body height 2023-01-28 20:10:00 172.7 cm [facility] Body weight 2023-01-28 20:10:00 84.959 kg [facility] BMI 2023-01-28 20:10:00 28.48 kg/m2 [facility] Oxygen saturation in 2023-01-28 20:10:00 100 /min University of Arterial blood by [employer] [facility] Systolic blood 2023-01-21 02:45:00 124 mm[Hg] Univer sity of pressure [facility] Diastolic blood 2023-01-21 02:45:00 84 mm[Hg] Unive rsity of pressure [facility] Heart rate 2023-01-21 02:45:00 87 /min [facility] Body temperature 2023-01-21 02:45:00 37.11 [place] [facility] Respiratory rate 2023-01-21 02:45:00 16 /min Univ ers[facility] of [facility] Body height 2023-01-21 02:45:00 172.7 cm [facility] Body weight 2023-01-21 02:45:00 83.915 kg [facility] BMI 2023-01-21 02:45:00 28.13 kg/m2 [facility] Oxygen saturation in 2023-01-21 02:45:00 98 /min University of Arterial blood by [facility] Branch Systolic blood 2023-01-18 17:57:00 111 mm[Hg] Univer sity of pressure [facility] Diastolic blood 2023-01-18 17:57:00 74 mm[Hg] Unive rsity of pressure [facility] Respiratory rate 2023-01-18 17:57:00 16 /min Univ ersity of [facility] Oxygen saturation in 2023-01-18 17:57:00 99 /min [facility] Arterial blood by [facility] Pulse oximetry Branch Body temperature 2023-01-18 17:16:00 36.22 [facility] Heart rate 2023-01-18 16:40:00 67 /min [facility] Systolic blood 2023-01-18 17:16:00 106 mm[Hg] [facility] Diastolic blood 2023-01-18 17:16:00 63 mm[Hg] [facility] Body temperature 2023-01-18 17:16:00 36.22 [place] [facility] Respiratory rate 2023-01-18 17:16:00 15 /min [facility] Oxygen saturation in 2023-01-18 17:16:00 98 /min [facility] Arterial blood by [facility] Pulse oximetry Branch Heart rate 2023-01-18 16:40:00 67 /min [facility] Systolic blood 2023-01-13 18:00:00 124 mm[Hg] [facility] Diastolic blood 2023-01-13 18:00:00 81 mm[Hg] [facility] Heart rate 2023-01-13 18:00:00 88 /min [facility] Body height 2023-01-13 18:00:00 172.7 cm [facility] Body weight 2023-01-13 18:00:00 83.734 kg [facility] BMI 2023-01-13 18:00:00 28.07 kg/m2 [facility] Systolic blood 2023-01-08 19:52:00 146 mm[Hg] [facility] Diastolic blood 2023-01-08 19:52:00 90 mm[Hg] [facility] Heart rate 2023-01-08 19:52:00 89 /min [facility] Body temperature 2023-01-08 19:52:00 37.22 [place] [facility] Respiratory rate 2023-01-08 19:52:00 22 /min [facility] Body height 2023-01-08 19:52:00 172.7 cm [facility] Body weight 2023-01-08 19:52:00 83.915 kg [facility] BMI 2023-01-08 19:52:00 28.13 kg/m2 [facility] Oxygen saturation in 2023-01-08 19:52:00 100 /min [facility] Arterial blood by [facility] Pulse oximetry Branch Systolic blood 2022-12-21 13:55:00 137 mm[Hg] [facility] Diastolic blood 2022-12-21 13:55:00 85 mm[Hg] [facility] Heart rate 2022-12-21 13:55:00 83 /min [facility] Body height 2022-12-21 13:55:00 172.7 cm [facility] Body weight 2022-12-21 13:55:00 84.732 kg [facility] BMI 2022-12-21 13:55:00 28.40 kg/m2 [facility] Oxygen saturation in 2022-12-21 13:55:00 97 /min [facility] Arterial blood by [facility] Pulse oxim[facility] Branch Systolic blood 2022-12-07 02:48:00 132 mm[Hg] [facility] Diastolic blood 2022-12-07 02:48:00 88 mm[Hg] [facility] Heart rate 2022-12-07 02:48:00 84 /min [facility] Body temperature 2022-12-07 02:48:00 37.22 [facility] Respiratory rate 2022-12-07 02:48:00 18 /min [facility] Body height 2022-12-07 02:48:00 170.2 cm [facility] Body weight 2022-12-07 02:48:00 83.915 kg [facility] BMI 2022-12-07 02:48:00 28.98 kg/m2 [facility] [place] Oxygen saturation in 2022-12-07 02:48:00 98 /min [facility] Arterial blood by [facility] Pulse oximetry Branch Systolic blood 2022-12-03 17:55:00 124 mm[Hg] [facility] Diastolic blood 2022-12-03 17:55:00 77 mm[Hg] [facility] Heart rate 2022-12-03 17:55:00 78 /min [facility] Body temperature 2022-12-03 17:55:00 36 [place] [facility] Body height 2022-12-03 17:55:00 172.7 cm [facility] Body weight 2022-12-03 17:55:00 85.049 kg [facility] BMI 2022-12-03 17:55:00 28.51 kg/m2 [facility] Body height 2022-11-26 18:04:00 172.7 cm [facility] Body weight 2022-11-26 18:04:00 83.915 kg [facility] BMI 2022-11-26 18:04:00 28.13 kg/m2 [facility] Body mass index 2022-11-26 18:04:00 91.75 % Unive [facility]ity of (BMI) [Percentile] [place] [facility] Per [facility] and sex [facility] Systolic blood 2022-11-19 16:10:00 135 mm[Hg] [facility] Diastolic blood 2022-11-19 16:10:00 88 mm[Hg] [facility]ive [facility]ity of pressure [facility] Heart rate 2022-11-19 16:10:00 80 /min [facility] Body height 2022-11-19 16:10:00 172.7 cm [facility] Body weight 2022-11-19 16:10:00 86.047 kg [facility] [place] BMI 2022-11-19 16:10:00 28.84 kg/m2 [facility] Body mass index 2022-11-19 16:10:00 93.48 % Unive rsity of (BMI) [Percentile] [place] [facility] Per [facility] sex [facility] Oxygen saturation in 2022-11-19 16:10:00 97 /min [facility] Arterial blood by [facility] Pulse oximetry Branch Systolic blood 2022-11-17 17:53:00 101 mm[Hg] [facility]ity of pressure [facility] Diastolic blood 2022-11-17 17:53:00 63 mm[Hg] [facility]ity of pressure [facility] Heart rate 2022-11-17 17:53:00 81 /min [facility] [place] Body temperature 2022-11-17 17:53:00 36.5 [place] [facility] Body height 2022-11-17 17:53:00 172.7 cm [facility] [place] Body weight 2022-11-17 17:53:00 86.183 kg [facility] [place] BMI 2022-11-17 17:53:00 28.89 kg/m2 [facility] Body mass index 2022-11-17 17:53:00 93.59 % Unive rsity of (BMI) [Percentile] [place] [facility] Per [facility] sex [facility] Systolic blood 2022-11-16 14:15:00 127 mm[Hg] [facility]ity [facility] Diastolic blood 2022-11-16 14:15:00 78 mm[Hg] [facility] Heart rate 2022-11-16 14:15:00 78 /min [facility] Respiratory rate 2022-11-16 14:15:00 19 /min [facility] Body height 2022-11-16 14:15:00 172.7 cm [facility] Body weight 2022-11-16 14:15:00 86.274 kg [facility] BMI 2022-11-16 14:15:00 28.92 kg/m2 [facility] Body mass index 2022-11-16 14:15:00 93.66 % Unive rsity of (BMI) [Percentile] [place] [facility] Per [facility] sex [facility] Oxygen saturation in 2022-11-16 14:15:00 96 /min [facility] Arterial blood by [facility] Pulse oximetry Branch Heart rate 2022-11-13 05:05:00 86 /min [facility] Respiratory rate 2022-11-13 05:05:00 16 /min [facility] Oxygen saturation in 2022-11-13 05:05:00 100 /min [facility] Arterial blood by [facility] Pulse oximetry Branch Systolic blood 2022-11-13 02:41:00 124 mm[Hg] [facility] Diastolic blood 2022-11-13 02:41:00 85 mm[Hg] [facility] Body temperature 2022-11-13 02:41:00 37.11 [place] [facility] Body height 2022-11-13 02:41:00 172.7 cm [facility] Body weight 2022-11-13 02:41:00 85.73 kg [facility] BMI 2022-11-13 02:41:00 28.74 kg/m2 [facility] Body mass index 2022-11-13 02:41:00 93.30 % Unive rsity of (BMI) [Percentile] [place] [facility] Per [facility] Systolic blood 2022-11-03 14:32:00 127 mm[Hg] [facility] Diastolic blood 2022-11-03 14:32:00 82 mm[Hg] [facility] Heart rate 2022-11-03 14:32:00 87 /min [facility] Body temperature 2022-11-03 14:32:00 36.83 [place] [facility] Respiratory rate 2022-11-03 14:32:00 18 /min [facility] Body height 2022-11-03 14:32:00 172.7 cm [facility] Body weight 2022-11-03 14:32:00 85.322 kg [facility] BMI 2022-11-03 14:32:00 28.60 kg/m2 [facility] Body mass index 2022-11-03 14:32:00 93.03 % Unive rsity of (BMI) [Percentile] [place] [facility] Per [facility] sex [facility] Oxygen saturation in 2022-11-03 14:32:00 98 /min [facility] by [place] [facility] [facility] Systolic blood 2022-10-29 12:12:00 113 mm[Hg] [facility] Diastolic blood 2022-10-29 12:12:00 68 mm[Hg] [facility] Heart rate 2022-10-29 12:12:00 98 /min [facility] Body temperature 2022-10-29 12:12:00 36.83 [place] [facility] Respiratory rate 2022-10-29 12:12:00 15 /min [facility] Oxygen saturation in 2022-10-29 12:12:00 97 /min [facility] Arterial blood by [facility] cherie Pulse o[facility] Branch Body weight 2022-10-29 07:58:00 [...] /min [facility] [place] [employer] [facility] Body temperature 2022-10-28 00:46:00 36.89 [place] [facility] Body height 2022-10-28 00:46:00 172.7 cm [facility] Body weight 2022-10-28 00:46:00 83.915 kg [facility] BMI 2022-10-28 00:46:00 28.13 kg/m2 [facility] Body mass index 2022-10-28 00:46:00 91.92 % Unive rsity of (BMI) [Percentile] [place] [facility] Per [facility] sex [facility] Systolic blood 2022-10-20 22:00:00 116 mm[Hg] [facility] Diastolic blood 2022-10-20 22:00:00 81 mm[Hg] [facility] Heart rate 2022-10-20 22:00:00 91 /min [facility] Respiratory rate 2022-10-20 22:00:00 16 /min [facility] Oxygen saturation in 2022-10-20 22:00:00 98 /min [facility] by [place] [employer] [facility] Body temperature 2022-10-20 19:24:00 37.22 [place] [facility] Body height 2022-10-20 19:24:00 172.7 cm [facility] Body weight 2022-10-20 19:24:00 83.915 kg [facility] BMI 2022-10-20 19:24:00 28.13 kg/m2 [facility] Body mass index 2022-10-20 19:24:00 91.95 % Unive rsity of (BMI) [Percentile] [place] [facility] Per [facility] and sex [facility] Systolic blood 2022-10-09 06:00:00 123 mm[Hg] Univer [facility]ity of pressure [facility] Diastolic blood 2022-10-09 06:00:00 74 mm[Hg] Unive rsity of pressure [facility] Heart rate 2022-10-09 06:00:00 74 /min [facility] Respiratory rate 2022-10-09 06:00:00 16 /min [facility] Oxygen saturation in 2022-10-09 06:00:00 96 /min [facility] Arterial blood by [facility] Pulse oximetry Branch Body temperature 2022-10-09 03:45:00 37.11 [place] [facility] Body height 2022-10-09 03:45:00 172.7 cm [facility] Body weight 2022-10-09 03:45:00 83.099 kg [facility] BMI 2022-10-09 03:45:00 27.86 kg/m2 [facility] Body mass index 2022-10-09 03:45:00 91.28 % Unive rsity of (BMI) [Percentile] [place] [facility] Per [facility] sex [facility] Systolic blood 2022-09-15 13:33:00 125 mm[Hg] Univer [facility]ity of pressure [facility] Diastolic blood 2022-09-15 13:33:00 84 mm[Hg] Unive rsity of pressure [facility] Heart rate 2022-09-15 13:33:00 78 /min [facility] Body temperature 2022-09-15 13:33:00 36.78 [place] [facility] Body height 2022-09-15 13:33:00 170.2 cm [facility] [place] Body weight 2022-09-15 13:33:00 83.825 kg [facility] [place] BMI 2022-09-15 13:33:00 28.94 kg/m2 [facility] Body mass index 2022-09-15 13:33:00 93.96 % Unive rsity of (BMI) [Percentile] [place] [facility] Per [facility] and sex Branch Systolic blood 2022-08-19 14:06:00 127 mm[Hg] Univer [facility]ity of pressure [facility] Diastolic blood 2022-08-19 14:06:00 85 mm[Hg] [facility] Heart rate 2022-08-19 14:06:00 93 /min [facility] Body height 2022-08-19 14:06:00 170.2 cm [facility] Body weight 2022-08-19 14:06:00 83.19 kg [facility] BMI 2022-08-19 14:06:00 28.72 kg/m2 [facility] Body mass index 2022-08-19 14:06:00 93.64 % Unive rsity of (BMI) [Percentile] [facility] Per age and sex Branch Oxygen saturation in 2022-08-19 14:06:00 97 /min [facility] Arterial blood by [facility] Pulse oximetry Branch Systolic blood 2022-08-18 16:31:00 115 mm[Hg] [facility] [place] Diastolic blood 2022-08-18 16:31:00 76 mm[Hg] Unive rsity of pressure [facility] Heart rate 2022-08-18 16:31:00 80 /min [facility] Respiratory rate 2022-08-18 16:31:00 18 /min Univ ers[facility] of [facility] Body weight 2022-08-18 16:31:00 85.078 kg [facility] Oxygen saturation in 2022-08-18 16:31:00 95 /min [facility] Arterial blood by [facility] Pulse oximetry Branch Systolic blood 2022-07-13 02:06:00 134 mm[Hg] Univer sity of pressure [facility] Branch Diastolic blood 2022-07-13 02:06:00 83 mm[Hg] Unive rsity of pressure [facility] Heart rate 2022-07-13 02:06:00 108 /min [facility] Body temperature 2022-07-13 02:06:00 37 [place] [facility] Respiratory rate 2022-07-13 02:06:00 18 /min [...] /min [facility] blood by [place] [employer] [facility] P[facility] Systolic blood 2022-06-22 [...] 27.98 kg/m2 [facility] Body mass index 2022-06-22 14:59:00 92.21 % Unive rsity of (BMI) [Percentile] [place] [facility] Per age and sex Branch Oxygen saturation in 2022-06-22 14:59:00 96 /min [facility] Arterial blood by [employer] cherie Pulse oxim[facility] Branch Systolic blood 2022-06-21 [...] 96 /min [facility] [place] [facility] Body temperature 2022-06-21 04:01:00 37.11 [place] [facility] Body height 2022-06-21 04:01:00 172.7 cm [facility] [place] Body weight 2022-06-21 04:01:00 83.915 kg [facility] BMI 2022-06-21 04:01:00 28.13 kg/m2 [facility] Body mass index 2022-06-21 04:01:00 92.59 % Unive rsity of (BMI) [Percentile] [facility] Per age and sex Branch Systolic blood 2022-06-17 04:30:00 126 mm[Hg] Univer sity of pressure [facility] Branch Diastolic blood 2022-06-17 04:30:00 76 mm[Hg] Unive rsity of pressure [facility] Heart rate 2022-06-17 04:30:00 125 /min [facility] of [facility] Respiratory rate 2022-06-17 04:30:00 20 /min Univ ersity of [facility] Oxygen saturation in 2022-06-17 04:30:00 100 /min [facility]ial blood by [place] [employer] [facility] P[facility] Body temperature 2022-06-16 23:56:00 37.44 [place] [facility] Body weight 2022-06-16 21:02:00 82.101 kg [facility]i [facility] of [facility] Systolic blood 2022-05-29 07:01:00 116 mm[Hg] Univer sity of pressure [facility] Diastolic blood 2022-05-29 07:01:00 64 mm[Hg] Unive rsity of pressure [facility] Heart rate 2022-05-29 07:01:00 116 /min [facility] Respiratory rate 2022-05-29 07:01:00 18 /min Univ ersity of [facility] Branch Oxygen saturation in 2022-05-29 07:01:00 97 /min [facility]ial blood by [place] [employer] [facility] Body temperature 2022-05-29 01:29:00 36.94 [place] [facility] Body height 2022-05-29 01:29:00 172.7 cm [facility] Body weight 2022-05-29 01:29:00 79.334 kg [facility] BMI 2022-05-29 01:29:00 26.59 kg/m2 [facility] Body mass index 2022-05-29 01:29:00 87.81 % Unive rsity of (BMI) [Percentile] [facility] Per age and sex Branch HEIGHT 2022-04-08 13:03:00 172.7 cm WEIGHT 2022-04-08 13:03:00 82.01 kg HEIGHT 2022-04-08 13:03:00 172.7 cm WEIGHT 2022-04-08 13:03:00 82.01 kg HEIGHT 2022-04-08 13:03:00 172.7 cm WEIGHT 2022-04-08 13:03:00 82.01 kg Systolic blood 2019-03-01 16:13:00 133 mm[Hg] Univer sity of pressure [facility] Diastolic blood 2019-03-01 16:13:00 77 mm[Hg] Unive rsity of pressure [facility] Heart rate 2019-03-01 16:13:00 76 /min [facility]i ty of [facility] Body temperature 2019-03-01 16:13:00 36.89 [place] [facility] Respiratory rate 2019-03-01 16:13:00 20 /min Univ ersity of [facility] Body height 2019-03-01 16:13:00 168.1 cm [facility]i [facility] of [facility] Body weight 2019-03-01 16:13:00 58.3 kg [facility]i [facility] of [facility] BMI 2019-03-01 16:13:00 20.63 kg/m2 [facility] Systolic blood 2019-03-01 16:13:00 133 mm[Hg] Univer sity of pressure [facility] Diastolic blood 2019-03-01 16:13:00 77 mm[Hg] Unive rsity of pressure [facility] Heart rate 2019-03-01 16:13:00 76 /min [facility]i ty of [facility] Body temperature 2019-03-01 16:13:00 36.89 [place] [facility] Respiratory rate 2019-03-01 16:13:00 20 /min Univ ers[facility] of [facility] Body height 2019-03-01 16:13:00 168.1 cm [facility] Body weight 2019-03-01 16:13:00 58.3 kg [facility] BMI 2019-03-01 16:13:00 20.63 kg/m2 Universi ty [facility] Systolic blood 2018-03-08 19:32:00 127 mm[Hg] Univer sity of pressure [facility] Diastolic blood 2018-03-08 19:32:00 84 mm[Hg] Unive rsity of [facility] Heart rate 2018-03-08 19:32:00 92 /min Universi [facility] Body temperature 2018-03-08 19:32:00 36.67 [place] [facility] Body height 2018-03-08 19:32:00 166.1 cm Universi [facility] Body weight 2018-03-08 19:32:[address] [facility] [facility] BMI 2018-03-08 19:32:00 18.52 kg/m2 [facility] Systolic blood 2022-04-08 13:03:00 125 mm[Hg] [facility] Diastolic blood 2022-04-08 13:03:00 82 mm[Hg] [facility] Heart rate 2022-04-08 13:03:00 80 /min [facility] Body temperature 2022-04-08 13:03:00 37.11 [place] [facility] Body height 2022-04-08 13:03:00 172.7 cm [facility] Body weight 2022-04-08 13:03:00 82.01 kg [facility] BMI 2022-04-08 13:03:00 27.49 kg/m2 [facility] Body mass index 2022-04-08 13:03:00 91.28 % [facility] (BMI) [Percentile] Medical C enter Per age and sex Oxygen saturation in 2022-04-08 13:03:00 96 /min [facility] Arterial blood by Medical Ce nter Pulse oximetry Procedures Procedure Date / Time Performing Clinician Source Performed EKG-12 LEAD 2023-02-01 06:36:20 Arsalan Grant Ora o f [facility] CT CHEST PULMONARY 2023-02-01 05:31:00 Arsalan Grant [facility] ANGIOGRAM Medical Branch TROPONIN I 2023-02-01 05:13:00 Arsalan Grant [facility] COMP. METABOLIC PANEL 2023-02-01 05:13:00 Arsalan Grant [facility] ([id number]) [facility] URINE DRUG (IMMUNOASSAY) 2023-02-01 05:13:00 Arsalan Grant [facility] - COMPREHENSIVE DRUG Medical Bra nc SCREEN CBC WITH DIFF 2023-02-01 05:13:00 Arsalan Grant [facility] XR CHEST 1 VW 2023-02-01 04:17:00 Arsalan Grant [facility] CONSENT/REFUSAL FOR 2023-02-01 03:26:07 Doctor Unawarner [facility] DIAGNOSIS AND TREATMENT Aline [facility] CONSENT/REFUSAL FOR 2023-01-21 02:34:06 Doctor Shayy [facility] [place] [facility] 2023-01-18 17:11:45 Hannah Ventura [facility] (NON-REPORTABLE) [facility] [place] TIME OR 2023-01-18 17:11:45 Hannah Ventura [facility] (NON-REPORTABLE) [facility] METACARPAL ORIF 2023-01-18 15:47:00 Hannah Ventura [facility] POCT GLUCOSE (AUTOMATED) 2023-01-18 14:50:00 Hannah Ventura [facility] POCT GLUCOSE (AUTOMATED) 2023-01-18 14:50:00 Hannah Ventura [facility] EXTERNAL PROVIDER RECORDS 2023-01-18 05:01:00 Doctor Lucas [facility] Aline [facility] BASIC METABOLIC PANEL 2023-01-15 13:06:00 Hannah Ventura [facility] (NA, K, CL, CO2, GLUCOSE, Medica l Branch BUN, CREATININE, CA) CBC WITH DIFF 2023-01-15 13:06:00 Hannah Ventura [facility] URINALYSIS 2023-01-15 13:06:00 Hannah Ventura [facility] HB ABO GROUPING 2023-01-15 13:06:00 Hannah Ventura [facility] ASSIGNMENT OF BENEFITS 2023-01-15 12:48:04 Doctor Unassigned, [facility] Aline [facility] EXTERNAL PROVIDER RECORDS 2023-01-14 05:01:00 Doctor Unassigned, [facility] Aline [facility] EXTERNAL PROVIDER RECORDS 2023-01-14 05:01:00 Doctor Unassigned, [facility] REFERRAL- 2023-01-13 05:01:00 Doctor Unassigned, [facility] REQUEST/RESPONSE [facility] ASSIGNMENT OF BENEFITS 2023-01-08 22:03:56 Doctor Unassigned, [facility] XR HAND <3 VW RIGHT 2023-01-08 20:29:08 [facility] CONSENT/REFUSAL FOR 2023-01-08 19:46:31 Doctor Unawarner [facility] DIAGNOSIS AND TREATMENT Al[facility] REFERRAL- 2023-01-08 05:01:00 Doctor Unaessieigned, [facility] REQUEST/RESPONSE [facility] INSURANCE CORRESPONDENCE 2022-12-10 05:01:00 Doctor Unawarner, [facility] PHYSICIAN ORDERS 2022-12-08 05:01:00 Doctor Unassigned, [facility] ASSIGNMENT OF BENEFITS 2022-12-07 04:38:17 Doctor Unassigned, [facility] XR CHEST 1 VW 2022-12-07 03:58:05 [facility] [place] NOTICE OF PRIVACY 2022-12-07 02:24:27 Doctor Shayy, [facility] PRACTICES [facility] CONSENT/REFUSAL FOR 2022-12-07 02:23:58 Doctor Shayy [facility] DIAGNOSIS AND TREATMENT [facility] INSURANCE CORRESPONDENCE 2022-11-18 05:01:00 Doctor Shayy, [facility] XR SPINE THORACIC 2 VW 2022-11-17 18:11:54 [facility] XR LUMBAR SPINE 2 VW 2022-11-17 18:11:42 Beena Ramirez [facility] XR CERVICAL SPINE 2 VW 2022-11-17 18:11:11 Beena Ramirez [facility] PATIENT QUESTIONNAIRE 2022-11-17 05:01:00 Doctor Unassigned, [facility] Name Medical [place] MEDICATION CORRESPONDENCE 2022-11-16 05:01:00 Doctor Unassmaria esther, [facility] Name Medical [place] XR CHEST 1 VW 2022-11-13 03:14:48 Colleen Varma [facility] o [facility] DISCLOSURE AND CONSENT, 2022-11-03 05:01:00 Doctor Unassmaria esther, U [facility] MEDICAL AND SURGICAL [facility] PROCEDURES URINALYSIS 2022-10-29 09:11:00 [facility] LIPASE 2022-10-29 09:08:00 [facility] MAGNESIUM 2022-10-29 09:08:00 [facility] COMP. METABOLIC PANEL 2022-10-29 09:08:00 Stanley [id number] CBC WITH DIFF 2022-10-29 09:08:00 [facility] KEPPRA (LEVETIRACETAM) 2022-10-29 09:08:00 Stanley [facility] CONSENT/REFUSAL FOR 2022-10-29 07:52:18 Doctor Shayy [facility] DIAGNOSIS AND TREATMENT [facility] EKG-12 LEAD 2022-10-28 02:24:23 Pita Malhotra [facility] TROPONIN I 2022-10-28 01:37:00 Pita Malhotra [facility] COMP. METABOLIC PANEL 2022-10-28 01:37:00 Pita Malhotra [facility] ([id number]) [facility] CBC WITH DIFF 2022-10-28 01:37:00 Pita Malhotra [facility] D-DIMER 2022-10-28 01:37:00 Pita Malhotra [facility] CONSENT/REFUSAL FOR 2022-10-28 00:34:51 Doctor Shayy [facility] DIAGNOSIS AND TREATMENT [facility] [place] MAGNESIUM 2022-10-20 19:56:00 Nuñez, [facility] TROPONIN I 2022-10-20 19:56:[address] [facility] COMP. METABOLIC PANEL 2022-10-20 19:56:00 Tyron Nuñez [facility] ([id number]) Medical Branch CBC WITH DIFF 2022-10-20 19:56:[address] [facility] D-DIMER 2022-10-20 19:56:[address] [facility] N-TERMINAL PRO-BNP 2022-10-20 19:56:00 Tyron Nuñez [facility] CONSENT/REFUSAL FOR 2022-10-20 19:10:18 Doctor Shayy [facility] DIAGNOSIS AND TREATMENT [facility] CT ABDOMEN PELVIS W 2022-10-09 05:16:10 Ruben Belcher [facility] CONTRAST Medical Branch LIPASE 2022-10-09 04:02:00 Ruben Belcher [facility] COMP. METABOLIC PANEL 2022-10-09 04:02:00 [id number] CBC WITH DIFF 2022-10-09 04:02:00 Ruben Belcher [facility] URINALYSIS 2022-10-09 04:02:00 Ruben Belcher [facility] NOTICE OF PRIVACY 2022-10-09 03:36:47 Doctor Shayy [facility] PRACTICES [facility] CONSENT/REFUSAL FOR 2022-10-09 03:34:38 Doctor Shayy [facility] DIAGNOSIS AND TREATMENT [facility] REFERRAL- 2022-09-21 06:01:00 Doctor Shayy, [facility] REQUEST/RESPONSE [facility] MEDICATION CORRESPONDENCE 2022-08-20 06:01:00 Doctor Shayy, [facility] REFERRAL- 2022-08-04 06:01:00 Doctor Shayy [facility] REQUEST/RESPONSE [facility] MEDICATION CORRESPONDENCE 2022-08-01 06:01:00 Doctor Shayy, [facility] MEDICATION CORRESPONDENCE 2022-07-30 06:01:00 Doctor Shayy, [facility] MEDICATION CORRESPONDENCE 2022-07-29 06:01:00 Doctor Hennassmaria esther, [facility] INSURANCE CORRESPONDENCE 2022-07-21 06:01:00 Doctor Unassmaria esther, [facility] MEDICATION CORRESPONDENCE 2022-07-16 06:01:00 Doctor Shayy, [facility] [place] EKG-12 LEAD 2022-07-13 04:05:39 Robert Gloria [facility] XR CHEST 1 VW 2022-07-13 03:18:00 Robert Gloria [facility] CONSENT/REFUSAL FOR 2022-07-13 01:56:55 Doctor Shayy [facility] DIAGNOSIS AND TREATMENT [facility] [place] REFERRAL- 2022-06-24 06:01:00 Doctor Shayy [facility] REQUEST/RESPONSE [facility] CONSENT/REFUSAL FOR 2022-06-22 14:45:55 Doctor Lucas [facility] DIAGNOSIS AND TREATMENT [facility] CT THORAX WO CONTRAST 2022-06-21 06:47:00 Meghan Rosario [facility] TROPONIN I 2022-06-21 05:33:00 Meghan Rosario [facility] COMP. METABOLIC PANEL 2022-06-21 05:33:00 Meghan Rosario [facility] ([id number]) [facility] CBC WITH DIFF 2022-06-21 05:33:00 Meghan Rosario [facility] PROTHROMBIN TIME / INR 2022-06-21 05:33:00 Meghan Rosario [facility] ACTIVATED PARTIAL 2022-06-21 05:33:00 Meghan Rosario [facility] THRMPLAS [facility] N-TERMINAL PRO-BNP 2022-06-21 05:33:00 Meghan Rosario [facility] XR CHEST 1 VW 2022-06-21 05:00:00 Meghan Rosario [facility] BLOOD CULTURE SCREEN 2022-06-21 04:29:00 Meghan Rosario [facility] RAPID INFLUENZA A/B 2022-06-21 04:29:00 Meghan Rosario [facility] Branch COVID-19 (ID NOW RAPID 2022-06-21 04:29:00 Meghan Rosario [facility] TESTING) Medical Branch BLOOD CULTURE SCREEN 2022-06-21 04:15:00 Meghan Rosario [facility] CONSENT/REFUSAL FOR 2022-06-21 03:54:30 Doctor Unawarner [facility] DIAGNOSIS AND TREATMENT [facility] [place] AUTHORIZATION TO RELEASE 2022-06-18 06:01:00 Doctor Shayy, [facility] PHI TO [facility] [place] CT CHEST PULMONARY 2022-06-16 23:13:02 Ruben Belcher [facility] ANGIOGRAM Medical Branch LIPASE 2022-06-16 22:15:00 Ruben Belcher [facility] COMP. METABOLIC PANEL 2022-06-16 22:15:00 Ruben Belcher Un [facility] ([id number]) Medical Branch CBC WITH DIFF 2022-06-16 22:15:00 Ruben Belcher [facility] RAPID STREP SCREEN FOR 2022-06-16 22:15:00 Ruben Belcher U [facility] GROUP A Medical Branch GALV ONLY - INFLUENZA A B 2022-06-16 22:15:00 Ruben Belcher [facility] RSV PCR [facility] Branch COVID-19 (ID NOW RAPID 2022-06-16 22:15:00 Ruben Belcher [facility] TESTING) Medical Branch LAB ONLY COVID 2022-06-16 22:15:00 Ruben Belcher [facility] INTERPRETATION Medical Branch CONSENT/REFUSAL FOR 2022-06-16 21:00:59 Doctor Shayy [facility] DIAGNOSIS AND TREATMENT [facility] [place] LACTIC ACID WHOLE BLOOD 2022-05-29 04:08:00 Tyron Nuñez [facility] BLOOD CULTURE SCREEN 2022-05-29 02:22:00 Tyron Nuñez [facility] COMP. METABOLIC PANEL 2022-05-29 02:22:00 Tyron Nuñez [facility] ([id number]) Medical Branch CBC WITH DIFF 2022-05-29 02:22:[address] [facility] LACTIC ACID WHOLE BLOOD 2022-05-29 02:21:00 Singer [facility] URINALYSIS 2022-05-29 02:05:[address] [facility] XR CHEST 1 VW 2022-05-29 02:03:[address] [facility] NOTICE OF PRIVACY 2022-05-29 01:16:26 Doctor Unassigned, [facility] PRACTICES [facility] CONSENT/REFUSAL FOR 2022-05-29 01:15:44 Doctor Unassigned, [facility] DIAGNOSIS AND TREATMENT [facility] [place] COMPREHENSIVE METABOLIC 2022-04-08 14:15:00 Junior Leahy [facility] PANEL Center BILIRUBIN, DIRECT 2022-04-08 14:15:00 Junior Leahy [facility] CBC W/PLT COUNT & AUTO 2022-04-08 14:15:00 Junior Leahy [facility] DIFFERENTIAL Center HEPATITIS A ANTIBODY, IGG 2022-04-08 14:15:00 Junior Leahy [facility] HEPATITIS B SURFACE 2022-04-08 14:15:00 Junior Leahy [facility] ANTIGEN Center HEPATITIS B SURFACE 2022-04-08 14:15:00 Junior Leahy [facility] ANTIBODY Center HEPATITIS B CORE 2022-04-08 14:15:00 Junior Leahy [facility] ANTIBODY, TOTAL Center HEPATITIS C ANTIBODY 2022-04-08 14:15:00 Junior Leahy [facility] IRON, TIBC, % SAT. 2022-04-08 14:15:00 Junior Leahy [facility] (WITHOUT FERRITIN) Center FERRITIN 2022-04-08 14:15:[address] [facility] IMFLD-2-VCACWQGQSWQ\\, 2022-04-08 14:15:00 Junior Leahy [facility] SERUM [place] CERULOPLASMIN 2022-04-08 14:15:00 Junior Leahy [facility] ANTI-NUCLEAR ANTIBODY 2022-04-08 14:15:00 Junior Leahy [facility] (FERNANDA) Center ACTIN (SMOOTH MUSCLE) 2022-04-08 14:15:00 Junior Leahy [facility] ANTIBODY, IGG Center MITOCHONDRIA M2 ANTIBODY 2022-04-08 14:15:00 Junior Leahy [facility] (IGG) Center IMMUNOGLOBULIN G (IGG) 2022-04-08 14:15:00 Junior Leahy [facility] CBC W/PLT COUNT & AUTO 2022-04-08 14:15:00 Alondra Banner Lala [facility] DIFFERENTIAL Center Plan of Care Planned Activity Planned Date Details Comments Source Future Scheduled 2026-01-29 DTAP/TDAP/TD VACCINES ([address] [facility] 00:00:00 - Td or Tdap) [code = Medica l Center DTAP/TDAP/TD VACCINES (7 - Td or Tdap)] Future Scheduled 2026-01-29 DTAP/TDAP/TD VACCINES ([address] [facility] 00:00:00 - Td or Tdap) [code = Medica l Center DTAP/TDAP/TD VACCINES (7 - Td or Tdap)] Future Scheduled 2026-01-29 DTAP/TDAP/TD VACCINES ([address] [facility] 00:00:00 - Td or Tdap) [code = Medica l Center DTAP/TDAP/TD VACCINES (7 - Td or Tdap)] Future Scheduled 2026-01-29 DTAP/TDAP/TD VACCINES ([address] [facility] 00:00:00 - Td or Tdap) [code = Medica l Center DTAP/TDAP/TD VACCINES (7 - Td or Tdap)] Future Scheduled 2026-01-29 DTAP/TDAP/TD VACCINES ([address] [facility] 00:00:00 - Td or Tdap) [code = Medica l Center DTAP/TDAP/TD VACCINES (7 - Td or Tdap)] Future Scheduled 2026-01-29 DTAP/TDAP/TD VACCINES ([address] [facility] 00:00:00 - Td or Tdap) [code = Medica l Center DTAP/TDAP/TD VACCINES (7 - Td or Tdap)] Future Scheduled 2023-04-[address] [facility] 00:00:00 Counseling and Screening Med ical Center (12+) [code = Tobacco Cessation Counseling and Screening (12+)] Future Scheduled 2023-04-[address] [facility] 00:00:00 Counseling and Screening Med ical Center (12+) [code = Tobacco Cessation Counseling and Screening (12+)] Future Scheduled 2023-04-[address] [facility] 00:00:00 Counseling and Screening Med ical Center (12+) [code = Tobacco Cessation Counseling and Screening (12+)] Future Scheduled 2023-03-19 INFLUENZA VACCINE (Season [facility] 00:00:00 Ended) [code = INFLUENZA Med ical Center VACCINE (Season Ended)] Future Scheduled 2023-03-19 Influenza Vaccine (#1) [facility]:00 [code = Influenza Vaccine Me dical Center (#1)] Future Scheduled 2023-03-19 Influenza Vaccine (#1) [facility] 00:00:00 [code = Influenza Vaccine Me dical Center (#1)] Future Scheduled 2022-07-[address] [facility] 00:00:00 (12+) [code = DEPRESSION Med ical Center SCREENING (12+)] Future Scheduled 2022-07-[address] [facility] 00:00:00 (12+) [code = DEPRESSION Med ical Center SCREENING (12+)] Future Scheduled 2022-07-[address] [facility] 00:00:00 (12+) [code = DEPRESSION Med ical Center SCREENING (12+)] Future Scheduled 2022-03-19 INFLUENZA VACCINE (#1) [facility] 00:00:00 [code = INFLUENZA VACCINE Me dical Center (#1)] Future Scheduled 2022-03-19 INFLUENZA VACCINE (#1) [facility] 00:00:00 [code = INFLUENZA VACCINE Me dical Center (#1)] Future Scheduled 2022-03-19 INFLUENZA VACCINE (#1) [facility] 00:00:00 [code = INFLUENZA VACCINE Me dical Center (#1)] Future Scheduled 2021-07-[address] [facility] 00:00:00 (12+) [code = DEPRESSION Med ical Center SCREENING (12+)] Future Scheduled 2021-07-[address] [facility] 00:00:00 (12+) [code = DEPRESSION Med ical Center SCREENING (12+)] Future Scheduled 2021-07-[address] [facility] 00:00:00 (12+) [code = DEPRESSION Med ical Center SCREENING (12+)] Future Scheduled 2021-01-18 COVID-19 VACCINE (4 - [facility]00 Booster) [code = COVID-19 Me dical Center VACCINE (4 - Booster)] Future Scheduled 2021-01-18 COVID-19 VACCINE (4 - [facility] 00:00:00 Booster) [code = COVID-19 Me dical Center VACCINE (4 - Booster)] Future Scheduled 2021-01-18 COVID-19 VACCINE (4 - [facility] 00:00:00 Booster) [code = COVID-19 Me dical Center VACCINE (4 - Booster)] Future Scheduled 2018-11-[address] [facility] 00:00:00 virus screening Medical Cent er (procedure) [code = 003557393] Future Scheduled 2018-11-[address] [facility] 00:00:00 virus screening Medical Cent er (procedure) [code = 234466927] Future Scheduled 2005-12-28 WELL CHILD EXAM (>[address] [facility] 00:00:00 and <= 18 YEARS) [code = Med ical Center WELL CHILD EXAM (>2 YEARS and <= 18 YEARS)] Future Scheduled 2005-12-28 WELL CHILD EXAM (>[address] [facility] 00:00:00 and <= 18 YEARS) [code = Med ical Center WELL CHILD EXAM (>2 YEARS and <= 18 YEARS)] Future Scheduled 2005-12-28 WELL CHILD EXAM (>[address] [facility] 00:00:00 and <= 18 YEARS) [code = [facility] WELL CHILD EXAM (>2 YEARS and <= 18 YEARS)] Future Scheduled 2005-12-28 WELL CHILD EXAM (>[address] [facility] 00:00:00 and <= 18 YEARS) [code = [facility] WELL CHILD EXAM (>2 YEARS and <= 18 YEARS)] Encounters Start End Encounter Admission Attending Care Care Encounter Source Date/Time Date/Time Type Type Clinicians Facility Department ID 2023-02-11 Outpatient R CHERISE MAURICE [facility] CC A [id number] Univers 11:18:59 CHERISE MAURICE [facility] 2023-03-02 2023-03-02 Outpatient R ROSCOE [facility] [id number] Univers 13:00:00 13:00:00 BARRIE [facility] 2023-02-22 2023-02-22 Outpatient R YANCI MICHAEL [facility] [id number] Univers 10:00:00 10:00:00 YANCI MICHAEL i ty [facility] 2023-02-18 2023-02-18 Telephone BOB Mcfarland [id number] Univers 00:00:00 00:00:00 [facility] [id number] [id number] [address] 2023-02-18 2023-02-18 Telephone Bartolo UNIVERSNIC [id number] Univers 00:00:00 00:00:00 [facility] [id number] [id number] [id number] [address] 2023-02-18 2023-02-18 [facility] [id number] Univers 00:00:00 00:00:00 Christiano COLEMAN [id number] ity of [id number] [id number] Me dical NAL 059 [facility] 2023-02-18 2023-02-18 Telephone Bartolo BOB [id number] Univers 00:00:00 00:00:00 [facility] [id number] [facility] [id number] [id number] [facility] [address] [place] 2023-02-15 2023-02-15 Outpatient R JOSE CHRISTOPHER [facility] [id number] Univers 08:30:00 08:30:00 ity of [facility] 2023-02-09 2023-02-09 Hospital [facility] 1.2.840.114 [id number] Univers 14:30:00 23:59:00 Encounter [facility] [id number] ity of [place] 4.2.7.2.686 Morales as JIGNA?BLEA [id number] Ar oj TINOCO 809 [facility] OFFICE [facility] 2023-02-09 2023-02-09 Outpatient R [facility] [id number] Univers 14:45:00 16:09:28 BARRIE [facility] 2023-02-09 2023-02-09 Office [facility] 1.2.840.114 [id number] Univers 14:45:00 15:00:00 Visit [facility] [id number] it y of [place] 4.2.7.2.686 Morales as JIGNA?BLEA [id number] Ar oj KIMBLELUIS E 198 [facility] OFFICE [facility] 2023-02-09 2023-02-09 Telephone [facility] [id number] Univers 00:00:00 00:00:00 Shiwan [place] [id number] i ty [place] [id number] Ar dical NAL 085 [facility] 2023-02-01 2023-02-01 Outpatient R [facility] [id number] Univers 14:10:00 23:59:00 BARRIE [facility] 2023-02-01 2023-02-01 Office [facility] 1.2.840.114 [id number] Univers 13:45:00 14:00:00 Visit [facility] [id number] it y of [place] 4.2.7.2.686 Morales as JIGNA?BLEA [id number] Ar dical KNEY [address] [place] MEDICAL OFFICE [facility] 2023-01-31 2023-02-01 Emergency X VASMN, [facility] ERT [id number] Univers 22:28:00 01:54:00 ARSALAN ity of [facility] 2023-01-31 2023-02-01 Emergency Vasid, [facility] [id number] Univers 22:28:00 01:54:00 Arsalan COLEMAN [id number] i ty of [place] [id number] [facility] [address] [place] 2023-02-01 2023-02-01 Telephone DARIEN Maurice 1.2.840.114 [id number] Univers 00:00:00 00:00:00 Michael MORA [id number] ity of [email or web address]] 4.2.7.2.686 Morales as [id number] [facility] [address] [place] 2023-01-29 2023-01-29 Outpatient R CHERISE MAURICE [facility] [id number] Univers 09:49:06 23:59:00 [facility] 2023-01-28 2023-01-28 Outpatient R CHERISE MAURICE [facility] [id number] Univers 15:20:00 15:30:35 CHERISE MAURICE ity [facility] 2023-01-28 2023-01-28 Office [facility] 1.2.840.114 [id number] Univers 15:20:00 15:30:35 Visit Michael COLEMAN [id number] ity of [facility] [place] [id number] Ar oj CHANG 059 [facility] 2023-01-28 2023-01-28 Telephone [facility] [id number] Univers 00:00:00 00:00:00 Shiwan [place] [id number] i ty [facility] 4[place] [id number] [place] [id number] Branch [facility] 2023-01-28 2023-01-28 [facility] 1.2.840.114 [id number] Univers 00:00:00 00:00:00 [facility] [id number] ity of [place]2.[place] AMAYA [id number] [place] [id number] [place] OFFICE BUILDING 2023-01-28 2023-01-28 Telephone [facility] [id number] Univers 00:00:00 00:00:00 Shiwan [place] [id number] i ty [place] [id number] [address] 2023-01-20 2023-01-21 Emergency X ALENA SACHIN [facility] ERT [id number] Univers 21:49:00 00:40:00 ity of [facility] 2023-01-20 2023-01-21 Emergency Alena Sachin [facility] 1.2.840.114 [id number] Univers 21:49:00 00:40:00 T [place] 350.1.13.10 i ty [facility] 4[place]2.7.[place] [id number] [facility] 084 Branch 2023-01-18 2023-01-18 Outpatient R [facility] SOR [id number] Univers 09:13:00 13:06:00 HANNAH ity of [facility] 2023-01-18 2023-01-18 [facility] Lorenzo [facility] 1.2.840.114 [id number] Univers 09:13:00 13:06:00 Encounter Hannah COLEMAN 350.1.13.10 ity [facility] [place]ICAL [id number] [place] [id number] Branch 2023-01-18 2023-01-18 Surgery [facility] 1.2.159.104 [id number] Univers 10:50:00 12:25:00 Hannah COLEMAN 350.1.13.10 i ty of [place].2.[place] SURGICAL [id number] [facility] [address] [place] 2023-01-18 2023-01-18 Orders Doctor DEE 1.2.840.114 [id number] Univers 00:00:00 00:00:00 Only Unassigned, MORGAN 350.1.13.10 ity of [facility] 4.2.7.2.686 Morales as [id number] [address] 2023-01-15 2023-01-15 Director Motion Picture Wilmar Recinos Lab Main [facility] 1.2.8 40.114 [id number] Univers 08:30:00 08:45:00 Visit Sarbjit Kee 350.1.13.10 ity of [place] 4.2.7.2.686 [facility] [id number] Ar dictala [facility] 353 Branch [facility] 2023-01-15 2023-01-15 [facility] [id number] Univers 08:30:00 08:30:00 HANNAH beckett [facility] 2023-01-15 2023-01-15 Orders Doctor DEE 1.2.840.114 [id number] Univers 00:00:00 00:00:00 Only Unassigned, MORGAN 350.1.13.10 ity of [facility] 4.2.7.2.686 Morales as [id number] [address] 2023-01-14 2023-01-14 Telephone [facility] [id number] Univers 00:00:00 00:00:00 [facility] 350.1.13.10 it y of [place] 4.2.7.2.686 Morales as JIGNA?BLEA [id number] Ar dical KNEY [address] [place] MEDICAL OFFICE BUILDING 2023-01-13 2023-01-13 Office [facility] [id number] Univers 13:00:00 13:15:00 Visit Hannah [facility] 350.1.13.10 it y of [place] 4.2.7.2.686 Morales as JIGNA?BLEA [id number] Ar oj TINOCO [address] [place] MEDICAL OFFICE [facility] 2023-01-13 2023-01-13 Outpatient R LORENZO [facility] [id number] Univers 13:00:00 13:00:00 HANNAH simental [facility] 2023-01-13 2023-01-13 Orders Doctor DEE 1.2.840.114 [id number] Univers 00:00:00 00:00:00 Only Unassigned, MORGAN 350.1.13.10 ity of [facility] 4.2.7.2.686 Morales as [id number] [address] 2023-01-08 2023-01-08 Emergency [facility] ERT [id number] Univers 14:55:00 17:08:00 SURY ity of [facility] 2023-01-08 2023-01-08 Emergency [facility] [id number] Univers 14:55:00 17:08:00 Sury S RICONELSON 350.1.13.10 i ty of [place] [id number] [place] [id number] [place] 2023-01-08 2023-01-08 Orders Doctor DEE 1.2.840.114 [id number] Univers 00:00:00 00:00:00 Only Unassigned, MORGAN 350.1.13.10 ity of [facility] 4.2.7.2.686 [place] as [id number] [address] 2023-01-08 2023-01-08 Telephone Christian MNMAGDALENA [id number] [id number] Univers 00:00:00 00:00:00 Yanci COLEMAN 350.1.13.10 i ty [place] [facility] [id number] Ar oj CHANG 085 [facility] 2023-01-05 2023-01-05 Telephone Christian [facility] [id number] Univers 00:00:00 00:00:00 Shiwan [place] 350.1.13.10 i ty [place] [phone] Ar dical NAL 085 Branch [facility] 2022-12-28 2022-12-28 Telephone Cem [facility] 1.2.807.544 [id number] [id number] Univers 00:00:00 00:00:00 Qiangjun [place] 350.1.13.10 ity of [place] [id number] Ar dicla NAL 059 [facility] 2022-12-21 2022-12-21 Outpatient R JOSE CHRISTOPHER [facility] [id number] Univers 09:20:00 09:33:52 ity of [facility] 2022-12-21 2022-12-21 Office Jose Christopher [facility] 1.2.840.114 10 [id number] Univers 09:20:00 09:33:52 Visit S HEALTH 350.1.13.10 it y of [place] [id number] [facility] 092 Branch OFFICE BUILDING 2022-12-16 2022-12-16 Patient Doctor [facility] 1.2.840.114 [id number] Univers 00:00:00 00:00:00 Secure Msg Unassigned, [place] 350.1.13.10 ity of [place] [id number] Ar dical NAL 059 [facility] 2022-12-15 2022-12-15 Inpatient R JOSE CHRISTOPHER [facility] TYRONE [id number] Univers 08:30:00 08:30:00 ity of [facility] 2022-12-14 2022-12-14 [facility]phone [facility] 1.2.322.173 [id number] [id number] Univers 00:00:00 00:00:00 Shiwan [place] 350.1.13.10 i ty of [place] 149.5758459 Ar dical NAL 059 Branch [facility] 2022-12-11 2022-12-11 Outpatient R CEM [facility] [id number] Univers 16:00:00 16:00:00 CHRISTIANO beckwithy o f [facility] 2022-12-10 2022-12-10 Telephone Cem [facility] 1.2.823.364 [id number] [id number] Univers 00:00:00 00:00:00 Christiano [place] 350.1.13.10 ity [facility] 4.[place] [id number] [facility] NAL 059 [facility] 2022-12-10 2022-12-10 Orders Doctor DEE 1.2.840.114 [id number] Univers 00:00:00 00:00:00 Only Unassigned, [place] 350.1.13.10 ity of [place] HOSPITAL 4.2.7.2.686 Mor[place] as [id number] [address] 2022-12-08 2022-12-08 Orders Doctor DEE 1.2.840.114 [id number] Univers 00:00:00 00:00:00 Only Unassigned, [place] 350.1.13.10 ity of [place] HOSPITAL 4.2.7.2.686 [place] as [id number] [address] 2022-12-06 2022-12-07 Emergency X [facility] ERT [id number] Univers 21:57:00 00:35:00 TYRON simental of [facility] 2022-12-06 2022-12-07 Emergency [facility] 1.2.233.792 0838 [id number] Univers 21:57:00 00:35:00 Tyron [place] 350.1.13.10 i ty of [place]2.7.[place] [id number] [facility] [address] [place] [address] 2022-12-07 2022-12-07 [facility]phone [facility] 1.2.413.416 1519 [id number] Univers 00:00:00 00:00:00 Yanci COLE[place] 350.1.13.10 i ty [facility] 4.2.[place] [id number] Ar dical NAL 085 [facility] 2022-12-04 2022-12-04 Telephone [facility] 1.2.535.179 0713 [id number] Univers 00:00:00 00:00:00 Kevineligio JARED 350.1.13.10 ity of [facility] [place] [id number] [facility] CHARLENE 059 [facility] 2022-12-04 2022-12-04 Telephone [facility] 1.2.397.449 9821 [id number] Univers 00:00:00 00:00:00 Kevineligio JARED 350.1.13.10 ity of [facility] 4.[place] [phone] [facility] CHARLENE [address] [place] [address] 2022-12-03 2022-12-03 Hospital [facility] 1.2.840.114 1 [id number] Univers 14:07:58 23:59:00 Encounter , Pankaj SPECIALTY 350.1.13.10 ity of C[place].2.[place] C[place] AT [id number] Ar oj SHEETS 809 [facility] 2022-12-03 2022-12-03 [facility] [id number] Univers 12:45:00 14:46:50 PANKAJ [facility] 2022-12-03 2022-12-03 Office [facility] 1..840.114 10 [id number] Univers 12:45:00 14:46:50 Visit , Pankaj SPECIALTY 350.1.13.10 ity of [place]2.[place].2.[place] C[place] AT [phone] Ar roetala BRASHERLiliana 198 [facility] 2022-12-02 2022-12-02 Outpatient R CEM [facility] [id number] Univers 07:36:17 23:59:00 CHRISTIANO bills [facility] 2022-11-26 2022-11-26 Outpatient R VIDYA [facility] [id number] Univers 13:00:00 13:22:38 ANJALI simental [facility] 2022-11-26 2022-11-26 Office BOB Wisdom 1.2.840.114 10 [id number] Univers 13:00:00 13:22:38 Visit Anjali Y 350.1.13.10 it y of NATIONAL 4.2.7.2.686 Morales as BANK [id number] [facility] [address] [place] 2022-11-26 2022-11-26 Ancillary Wendy Rosario UNIVERSIT 1.2.84 0.114 [id number] Univers 11:15:00 11:17:49 Visit Dominick [address] 350.1 .13.10 ity of Fadumo Ortiz [place] 4.2.7.2.686 [place] [facility] [id number] [facility] BLDG. [address] [place] 2022-11-23 2022-11-23 Outpatient [facility] [id number] Univers 13:00:00 13:49:08 HANNAH itliliana [facility] 2022-11-23 2022-11-23 Ancillary Nano Cook [facility] 1 .2.840.114 [id number] Univers 13:00:00 13:49:08 Visit Hannah [place] 350.1.13.10 ity of [facility] 4.2.7.2.[place] [id number] Ar dical NAL 179 [facility] 2022-11-20 2022-11-20 Telephone [facility] 1..163.446 2876 [id number] Univers 00:00:00 00:00:00 Yanci COLE[place] 350.1.13.10 i ty of [facility] 4.2.7.2.[place] [id number] Ar dical NAL 085 [facility] 2022-11-19 2022-11-19 Outpatient [facility] [id number] Univers 11:20:00 11:34:12 CHRISTIANO simental o f [facility] 2022-11-19 2022-11-19 Office [facility] 1.2.840.114 [id number] Univers 11:20:00 11:34:12 Visit Christiano COLEMAN 350.1.13.10 ity of [facility] 4.2.7.2.[place] [id number] Ar dical NAL 059 [facility] 2022-11-18 2022-11-18 Orders Doctor DEE 1.2.840.114 [id number] Univers 00:00:00 00:00:00 Only Unassigned, [place] 350.1.13.10 ity of [place] [facility] 4.2.7.2.686 [place]ales as [phone] [address] 2022-11-17 2022-11-[address] [facility] 1.2.323.865 1272 06130 Univers 14:11:57 23:59:00 Encounter Beena SPECIALTY 350.1.13.10 ity of [place] C[place] [id number] Ar dical VICTORY 809 [facility] 2022-11-17 2022-11-[address] [facility] 1.2.840.114 [id number] Univers 13:20:00 14:40:18 Visit Beena SPECIALTY 350.1.13.10 ity of [place]2.[place].2.[place] C[place] AT [phone] Ar dical VICTORY 198 [facility] 2022-11-17 2022-11-[address] [facility] 1.2.290.697 9736 [id number] Univers 12:58:08 14:10:00 Encounter Beena SPECIALTY 350.1.13.10 ity of [place] 4.2.7.2.[place] C[place] AT [phone] Ar dical VICTORY 809 [facility] 2022-11-17 2022-11-[address] [facility] 1.2.678.135 6475 80542 Univers 12:58:02 14:10:00 Encounter Beena SPECIALTY 350.1.13.10 ity of [place] 4[place]2.7.2.[place] [phone] Ar dical VICTORY 9 [facility] 2022-11-17 2022-11-17 Outpatient R [facility] [id number] Univers 12:57:56 12:57:56 BEENA ity of [facility] 2022-11-17 2022-11-[address] [facility] 1.2.558.108 6357 04041 Univers 12:57:56 12:57:56 Encounter Beena HAAS 350.1.13.10 ity of [facility] 4.2.7.2.[place] CENTER AT [phone] Ar dical VICTORY 809 [facility] 2022-11-16 2022-11-16 Office Christian [facility] 1.2.840.114 [id number] Univers 09:00:00 09:30:00 Visit Yanci [place]LE[place] 350.1.13.10 i ty of [place] 4.2.7.2.[place] [id number] Ar dical NAL 085 [facility] 2022-11-16 2022-11-16 Outpatient R YANCI MICHAEL [facility] 10 [id number] Univers 09:00:00 09:00:00 YANCI MICHAEL i ty of [facility] 2022-11-16 2022-11-16 Orders Doctor DEE 1.2.840.114 [id number] Univers 00:00:00 00:00:00 Only Unassigned, [place] 350.1.13.10 ity of [place] HOSPITAL 4.2.7.2.686 [place]ales as [id number] [facility] 009 Branch 2022-11-12 2022-11-13 Emergency X Colleen VARMA [facility] ERT [id number] Univers 21:44:00 00:14:00 ity of [facility] 2022-11-12 2022-11-13 Emergency Colleen Varma [facility] 1.2.840.114 10 [id number] Univers 21:44:00 00:14:00 Karen [place] 350.1.13.10 i ty of [place].2.7.2.[place] [phone] [facility] cherie 084 Branch 2022-11-03 2022-11-03 Director [employer] [facility] UNIVERSIT 1.2.840.114 1 [id number] Univers 11:45:00 12:00:00 Visit Parrish Rosenberg 350.1.13.10 ity of CLINICS 4.2.7.2.[place] [id number] [facility] cherie 316 Branch 2022-11-03 2022-11-03 Office BartoloJakob UNIVERSIT 1.2.840. 114 [id number] Univers 10:00:00 10:30:00 Visit Sheng Vasquez [facility] 350.1.13. 10 ity of CL[place]ICS 4[place]2.7.2.[place] 460.9437269 [facility] 071 Branch 2022-11-03 2022-11-03 Outpatient R CHRISTINA [facility] [id number] Univers 10:00:00 10:00:00 SHENG [facility] 2022-11-03 2022-11-03 Telephone BOB Mcfarland 1.2.840.114 10 [id number] Univers 00:00:00 00:00:00 Kangazra [facility] 350.1.13.10 ity of CLINICS 4[place]2.7.2.[place] [phone] [facility] [address] [place] 2022-11-03 2022-11-03 Orders Doctor DEE 1.2.840.114 [id number] Univers 00:00:00 00:00:00 Only Unassigned, [place] 350.1.13.10 ity of [place] HOSPITAL 4.2.7.2.686 [place]ales as [id number] [facility] 009 Branch 2022-11-02 2022-11-02 Telephone Christian [facility] 1.2.617.869 0172 08039 Univers 00:00:00 00:00:00 Yanci COLEMAN 350.1.13.10 i ty of [place] 4.2.7.2.[place] 736.2578976 Ar dical NAL 085 Branch [facility] 2022-10-29 2022-10-29 Emergency X MG FRYE [facility] ERT [id number] Univers 02:59:00 07:34:00 MG FRYE [facility] 2022-10-29 2022-10-29 Emergency Dalmedo, TRAUMA 1.2.840.114 102 [id number] Univers 02:59:00 07:34:00 [facility] 350.1.13.10 it y [place]2.7.2.[place] 846.8575320 [facility] 014 Branch 2022-10-292022-10-29 Nurse Yong PRICE 1.2.840.114 [id number] Univers 00:00:00 00:00:00 Triage Carlos A [place] 350.1.13.10 ity of [facility] 4.2.7.2.686 [place] as [id number] [facility] [address] [place] 2022-10-28 2022-10-28 Patient Doctor DEE 1.2.840.114 [id number] Univers 00:00:00 00:00:00 Secure Msg Unassigned [place] 350.1.13.[address] [facility] 4.2.7.2.686 [place] as [id number] [facility] [address] [place] 2022-10-28 2022-10-28 Telephone BOB Mcfarland 1.2.840.114 10 [id number] Univers 00:00:00 00:00:00 Jakob [facility] 350.1.13.[address] [facility] 4.2.7.2.[place] [id number] [facility] 071 Branch 2022-10-27 2022-10-27 Emergency [facility] [id number] Univers 19:47:00 21:40:00 PITA ity of [facility] 2022-10-27 2022-10-27 Emergency [facility] 1.2.590.436 7462 [id number] Univers 19:47:00 21:40:00 Pita [place] 350.1.13.10 ity of [place] 4.2.7.2.[place] 713.5853161 [facility] 084 Branch 2022-10-25 2022-10-25 Telephone DARIEN Mcfarland 1.2.308.272 7867 [id number] Univers 00:00:00 00:00:00 Jakob MORA 350.1.13.10 i ty of [facility] 4.2.7.2.686 [place] as [id number] [facility] 093 Branch 2022-10-21 2022-10-21 Telephone [facility] 1.2.502.535 1425 [id number] Univers 00:00:00 00:00:00 Yanci COLEMAN 350.1.13.10 i ty of [place] 4.2.7.2.686 [facility] [phone] Ar dical [facility] 085 [facility] 2022-10-20 2022-10-20 Emergency X SINGER [facility] ERT [id number] Univers 14:26:00 17:47:00 TYRON ity of [facility] 2022-10-20 2022-10-20 Emergency [facility] 1.2.435.527 2343 [id number] Univers 14:26:00 17:47:00 Tyron COLEMAN 350.1.13.10 i ty [facility] 4.2.7.2.[place] [phone] [facility] [address] [place] 2022-10-20 2022-10-20 Orders Doctor DEE 1.2.840.114 [id number] Univers 00:00:00 00:00:00 Only Unassigned, M[place] 350.1.13.10 ity of [place] HOSPITAL 4.2.7.2.686 Morales as 188.3338704 [facility] [address] [place] 2022-10-12 2022-10-12 Nurse DEE Barth 1.2.840.114 [id number] Univers 00:00:00 00:00:00 Triage Jose Carlos Lozada [place] 350.1.13.10 it y of HOSPITAL 4.2.7.2.686 [place] as 888.7353661 [facility] [address] [place] 2022-10-11 2022-10-11 Patient Doctor DEE 1.2.840.114 [id number] Univers 00:00:00 00:00:00 Secure Msg Unassigned, [place] 350.1.13.10 ity of [place] [facility] 4.2.7.2.686 Mor[place] as 833.6922056 [facility] [address] [place] 2022-10-08 2022-10-09 Emergency [facility] [id number] Univers 22:48:00 01:33:00 RUBEN simental [facility] 2022-10-08 2022-10-09 Emergency Ye [facility] 1.2.840.114 10 [id number] Univers 22:48:00 01:33:00 Ruben COLEMAN 350.1.13.10 ity [facility] 4.2.7.2.[place] [id number] [facility] 084 Branch 2022-10-09 2022-10-09 Telephone Zachariahol, [facility] 1.2.840.114 10 [id number] Univers 00:00:00 00:00:00 [facility] 350.1.13.10 ity of CLINICS 4[place]2.7.2.[place] [id number] [place] [address] [place] 2022-10-08 2022-10-08 Telephone Zachariah, [facility] 1.2.840.114 10 [id number] Univers 00:00:00 00:00:00 [facility] 350.1.13.10 ity of CLINICS 4[place]2.7.2.[place] [id number] [address] 2022-10-07 2022-10-07 Telephone Abr, [facility] 1.2.840.114 10 [id number] Univers 00:00:00 00:00:00 [facility] 350.1.13.10 ity of CLINICS 4.2.7.2.[place] 503.8263176 [place] [address] [place] 2022-09-30 2022-09-30 Telephone [facility] 1.2.454.294 8530 [id number] Univers 00:00:00 00:00:00 Yanci COLEMAN 350.1.13.10 i ty [facility] 4.2.7.2.686 [place] [facility] 086.9023290 [place] 5[address]15 [facility] 2022-09-24 2022-09-24 Outpatient R GERRY [facility] [id number] Univers 15:30:00 15:30:00 , PANKAJ ity of [facility] 2022-09-21 2022-09-21 Orders Doctor DEE 1.2.840.114 [id number] Univers 00:00:00 00:00:00 Only Unassigned, MOR[place] 350.1.13.10 ity of [place] [facility] 4.2.7.2.686 Morales as [id number] [facility] 009 Branch 2022-09-15 2022-09-15 Office Jakob Mcfarland [facility] 1.2.840. 114 [id number] Univers 07:30:00 08:00:00 Visit Sheng aVsquez [facility] 350.1.13. 10 ity of CLINICS 4.2.7.2.[place] 429.5310210 [place] [address] [place] 2022-09-15 2022-09-15 Outpatient R CHRISTINA [facility] [id number] Univers 07:30:00 07:30:00 SHENG ity [facility] 2022-08-26 2022-08-26 Telephone [facility] 1.2.056.115 5684 [id number] Univers 00:00:00 00:00:00 Shiwan ANGLENELSON 350.1.13.10 i ty of [place] 4.2.7.2.[place] [id number] [address] 2022-08-21 2022-08-21 Telephone [facility] 1.2.908.449 8622 [id number] Univers 00:00:00 00:00:00 Yanci COLEMAN 350.1.13.10 i ty of [place] 4.2.7.2.[place] 583.7610953 [address] 2022-08-20 2022-08-20 Orders Doctor DEE 1.2.840.114 [id number] Univers 00:00:00 00:00:00 Only Unassigned, MORGAN 350.1.13.10 ity of [place] HOSPITAL 4.2.7.2.686 Morales as 895.5957497 [facility] [address] [place] 2022-08-19 2022-08-19 Outpatient R NICHOL [facility] [id number] Univers 09:00:00 09:54:18 [facility] ity [facility] 2022-08-19 2022-08-19 Office Nichol [facility] 1.2.840.114 [id number] Univers 09:00:00 09:54:18 Visit [facility] 350.1.13.10 ity of [place]2.7.2.686 [place] [id number] [place] [address] [place] OFFICE BUILDING 2022-08-18 2022-08-18 Outpatient R YANCI MICHAEL [facility] 10 [id number] Univers 10:30:00 11:01:57 YANCI MICHAEL i ty of [facility] 2022-08-18 2022-08-18 Office [facility] 1.2.840.114 [id number] Univers 10:30:00 11:01:57 Visit Yanci COLEMAN 350.1.13.10 i ty of [facility] 4.2.7.2.[place] [id number] Ar dicla NAL [address] [place] [address] 2022-08-04 2022-08-04 Telephone [facility] 1.2.048.012 [id number] [id number] Univers 00:00:00 00:00:00 Yanci COLEMAN 350.1.13.10 i ty of [place] 4.2.7.2.[place] [phone] [address] 2022-08-04 2022-08-04 Orders Doctor PRICE 1.2.840.114 [id number] Univers 00:00:00 00:00:00 Only Unassigned, MORGAN 350.1.13.10 ity of [place] [facility]OSPITAL 4.2.7.2.686 Morales as [id number] [address] 2022-08-01 2022-08-01 Orders Doctor DEE 1.2.840.114 [id number] Univers 00:00:00 00:00:00 Only Unassigned, MORGAN 350.1.13.10 ity of [place] HOSPITAL 4.2.7.2.686 Morales as [id number] [address] 2022-07-30 2022-07-30 Orders Doctor DEE 1.2.840.114 [id number] Univers 00:00:00 00:00:00 Only Unassigned, MORGAN 350.1.13.10 ity of [place] [facility]OSPITAL 4.2.7.2.686 [place] as [phone] [address] 2022-07-29 2022-07-29 Telephone [facility] 1.2.663.223 8377 7439 Univers 00:00:00 00:00:00 Danishaditi COLEMAN 350.1.13.10 i ty of [place] 4.2.7.2.686 [place] [id number] [address] 2022-07-29 2022-07-29 Orders Doctor DEE 1.2.840.114 [id number] Univers 00:00:00 00:00:00 Only Unassigned, MORGAN 350.1.13.10 ity of [place] [facility] 4.2.7.2.686 [place]ales as 059.9117494 [address] 2022-07-28 2022-07-28 Telephone Christian [facility] 1.2.058.072 2721 5200 Univers 00:00:00 00:00:00 Shidhruv COLEMAN 350.1.13.10 i ty of [place] 4.2.7.2.[place] 664.4586956 [address] 2022-07-21 2022-07-21 Orders Doctor PRICE 1.2.840.114 [id number] Univers 00:00:00 00:00:00 Only Unassigned, MORGAN 350.1.13.10 ity of [place] [facility] 4.2.7.2.686 [place]ales as 024.7980698 [address] 2022-07-16 2022-07-16 Adriana Mac [facility] 1.2.840.114 [id number] Univers 00:00:00 00:00:00 [facility] 350.1.13.10 ity of [facility] 4.2.7.2.686 [place] [id number] [facility] [address] [place] 2022-07-16 2022-07-16 Hans Michael [facility] 1.2.226.714 8005 [id number] Univers 00:00:00 00:00:00 Yanci COLEMAN 350.1.13.10 i ty of [place] 4.2.7.2.[place] [id number] [address] 2022-07-16 2022-07-16 Orders Doctor DEE 1.2.840.114 [id number] Univers 00:00:00 00:00:00 Only Unassigned, MORGAN 350.1.13.10 ity of [place] [facility]OSPITAL 4.2.7.2.686 Morales as [id number] [address] 2022-07-12 2022-07-12 Emergency X [facility] ERT [id number] Univers 20:10:00 22:24:00 WAKILI ity of [facility] 2022-07-12 2022-07-12 Emergency [facility] 1.2.960.389 [id number] [id number] Univers 20:10:00 22:24:00 [place] [facility] 350.1.13.10 ity of [place].2.7.2.[place] 508.3897651 [address] 2022-07-07 2022-07-07 Telephone Christian [facility] 1.2.830.825 9987 [id number] Univers 00:00:00 00:00:00 Yanci COLEMAN 350.1.13.10 i ty of [place] 4.2.7.2.[place] 510.3281568 Ar dical NAL [address] [place] [address] 2022-06-29 2022-06-29 Outpatient EL JOANNERI, SLE [facility] [id number] [facility] 00:00:00 00:00:00 JUNIOR 2022-06-24 2022-06-24 Orders Doctor DEE 1.2.840.114 [id number] Univers 00:00:00 00:00:00 Only Unassigned, MORGAN 350.1.13.10 ity of [place] [facility] 4.2.7.2.686 Morales as [id number] [address] 2022-06-22 2022-06-22 Outpatient R YANCI MICHAEL [facility] 10 [id number] Univers 09:00:00 09:40:28 YANCI MICHAEL i ty of [facility] 2022-06-22 2022-06-22 Office Christian [facility] 1.2.840.114 [id number] Univers 09:00:00 09:40:28 Visit Yanci COLEMAN 350.1.13.10 i ty of [place] 4.2.7.2.[place] [phone] Ar dical NAL [address] [place] [address] 2022-06-22 2022-06-22 Orders Doctor DEE 1.2.840.114 [id number] Univers 00:00:00 00:00:00 Only Unassigned, MORGAN 350.1.13.10 ity of Aline [facility] 4.2.7.2.686 Morales as [phone] [facility] [address] [place] 2022-06-20 2022-06-21 Emergency [facility] [id number] Univers 22:02:00 04:05:00 MEGHAN ity [facility] 2022-06-20 2022-06-21 [facility] [id number] Univers 22:02:00 04:05:00 Meghan JARED 350.1.13.10 i ty [place] [phone] [facility] [address] 2022-06-18 2022-06-18 Orders Doctor PRICE 1.2.840.114 [id number] Univers 00:00:00 00:00:00 Only Unassigned, MORGAN 350.1.13.10 ity of [place] [facility] 4.2.7.2.686 Morales as [phone] [facility] [address] [place] 2022-06-16 2022-06-16 Emergency X IBCODYANSLEY, [facility] ERT [id number] Univers 15:04:00 22:47:00 [facility] ity [facility] 2022-06-16 2022-06-16 Emergency Ibikunle, TRAUMA 1.2.840.114 [id number] Univers 15:04:00 22:47:00 [facility] 350.1.13.10 ity [facility].[place] [phone] [facility] [address] 2022-05-28 2022-05-29 Emergency X MADHAVTONNY [facility] ERT [id number] Univers 19:34:00 02:25:00 ROBERT ity [facility] 2022-05-28 2022-05-29 Emergency Tyron Nuñez [facility] 1.2.840. 114 [id number] Univers 19:34:00 02:25:00 Robert Gloria 350.1.13.10 ity [facility] [place] 4.2.7.2.686 [facility] [phone] [facility] [address] 2022-04-08 2022-04-08 Office KAREN Leahy [facility] [id number] 13:00:00 14:00:00 Visit [facility] 2022-04-08 2022-04-08 Office Alondra [facility] [id number] 13:00:00 14:00:00 Visit [facility] 2022-04-08 2022-04-08 Outpatient KAREN LEAHY, [facility] SLE [id number] [facility] 11:58:43 11:58:43 [place] 2020-06-11 2020-06-11 Telephone [facility] [id number] 00:00:00 00:00:00 Felix SPECIALTY 350.1.13.10 [facility] 4.2.7.2.686 [place] [phone] [facility] 2020-06-11 2020-06-11 Telephone [place] [facility] 1.2.671.455 [id number] 4860 Univers 00:00:00 00:00:00 Felix SPECIALTY 350.1.13.10 ity of [facility] 4.2.7.2.686 Morales as COLONY [phone] [facility] [address] 2020-03-13 2020-03-13 Refill [facility] 1.2.840.114 [id number] 91 00:00:00 00:00:00 Felix SPECIALTY 350.1.13.10 [facility] 4.2.7.2.686 COL[place] [id number] [facility] 2020-03-13 2020-03-13 Refill [facility] 1.2.840.114 [id number] Univers 00:00:00 00:00:00 Felix SPECIALTY 350.1.13.10 ity of [facility] 4.2.7.2.686 Morales as COLONY [id number] [facility] [address] 2020-03-11 2020-03-11 Refill [facility] 1.2.840.114 [id number] 30 00:00:00 00:00:00 Felix SPECIALTY 350.1.13.10 [facility] 4.2.7.2.686 [place] [id number] 401 2020-03-11 2020-03-11 Telephone [facility] 1.2.379.496 [id number] 7886 00:00:00 00:00:00 Felix SPECIALTY 350.1.13.10 [facility] 4.2.7.2.686 [place] [id number] 401 2020-03-11 2020-03-11 Refill [facility] 1.2.840.114 [id number] 30 Univers 00:00:00 00:00:00 Felix SPECIALTY 350.1.13.10 ity of [facility] 4.2.7.2.686 [place] as [place] [id number] [address] 2020-03-11 2020-03-11 Telephone [facility] 1.2.061.543 [id number] 7886 Univers 00:00:00 00:00:00 Felix SPECIALTY 350.1.13.10 ity of [facility] 4.2.7.2.686 [place] [id number] [address] 2020-03-06 2020-03-06 Telephone [facility] 1.2.195.855 [id number] 00:00:00 00:00:00 Felix SPECIALTY 350.1.13.10 [facility] 4.2.7.2.686 [place] [id number] [facility] 2020-03-06 2020-03-06 Telephone [facility] 1.2.341.245 [id number] 4433 [facility] 00:00:00 00:00:00 Felix SPECIALTY 350.1.13.10 ity of [facility] 4.2.7.2.686 [place] [id number] [address] 2020-03-04 2020-03-04 Refill [facility] 1.2.840.114 [id number] 54 00:00:00 00:00:00 Felix SPECIALTY 350.1.13.10 [facility] 4.2.7.2.686 [place] [id number] 401 2020-03-04 2020-03-04 Refill [facility] 1.2.840.114 [id number] 54 Univers 00:00:00 00:00:00 Felix SPECIALTY 350.1.13.10 ity of [facility] 4.2.7.2.686 [place]ales as [place] [id number] [address] 2019-11-07 2019-11-07 [facility].840.114 [id number] 83 00:00:00 00:00:00 Felix SPECIALTY 350.1.13.10 [facility] 4.2.7.2.686 [place] [id number] [facility] 2019-11-07 2019-11-07 Refill [facility] 1.2.840.114 [id number] Univers 00:00:00 00:00:00 Felix SPECIALTY 350.1.13.10 ity of [facility] 4.2.7.2.686 [place] as [place] [id number] [address] 2019-10-23 2019-10-23 Telephone [facility] 1.2.496.052 [id number] 00:00:00 00:00:00 Felix SPECIALTY 350.1.13.10 [facility] 4.2.7.2.686 [place] [id number] [facility] 2019-10-23 2019-10-23 [facility] 1.2.559.243 [id number] 7946 Univers 00:00:00 00:00:00 Felix SPECIALTY 350.1.13.10 ity of [facility] 4.2.7.2.686 [place] as [place] [id number] [address] 2019-10-22 2019-10-22 [facility] 1.2.840.114 [id number] 87 00:00:00 00:00:00 Felix SPECIALTY 350.1.13.10 [facility] 4.2.7.2.686 [place] [id number] [facility] 2019-10-22 2019-10-22 Refill [facility] 1.2.840.114 [id number] 87 Univers 00:00:00 00:00:00 Felix SPECIALTY 350.1.13.10 ity of [facility] 4.2.7.2.686 [place] [id number] [address] 2019-09-06 2019-09-06 Telephone [facility] 1.2.326.259 [id number] 8654 00:00:00 00:00:00 Felix SPECIALTY 350.1.13.10 [facility] 4.2.7.2.686 [place] [id number] 401 2019-09-06 2019-09-06 Telephone [facility] 1.2.350.167 [id number] 8654 Univers 00:00:00 00:00:00 Felix SPECIALTY 350.1.13.10 ity of [facility] 4.2.7.2.686 [place] as [place] [id number] [address] 2019-08-14 2019-08-14 Telephone [facility] 1.2.890.008 [id number] 3924 00:00:00 00:00:00 Felix SPECIALTY 350.1.13.10 [facility] 4.2.7.2.686 [place] [id number] [facility] 2019-08-14 2019-08-14 Telephone [facility] 1.2.611.881 [id number] 3924 [facility] 00:00:00 00:00:00 Felix SPECIALTY 350.1.13.10 ity of [facility] 4.2.7.2.686 [place] as [place] [id number] [address] 2019-08-03 2019-08-03 [facility] 1.2.133.246 [id number] 8343 00:00:00 00:00:00 Felix SPECIALTY 350.1.13.10 [facility] 4.2.7.2.686 [place] [id number] [facility] 2019-08-03 2019-08-03 [facility] 1.2.234.959 [id number] 8343 Univers 00:00:00 00:00:00 Felix SPECIALTY 350.1.13.10 ity of [facility] 4.2.7.2.686 [place] as [place] [id number] [address] 2019-07-31 2019-07-31 Telephone [facility] 1.2.659.057 [id number] 00:00:00 00:00:00 Felix SPECIALTY 350.1.13.10 [facility] [place] 4.2.7.2.686 [place] [id number] [facility] 2019-07-31 2019-07-31 Telephone [facility] 1.2.363.946 [id number] 1156 Univers 00:00:00 00:00:00 Felix SPECIALTY 350.1.13.10 ity of [facility] 4.2.7.2.686 [place] as [place] [id number] [address] 2019-03-27 2019-03-27 [facility]phone [facility] 1.2.840.114 [id number] 00:00:00 00:00:00 Steve SPECIALTY 350.1.13.10 [facility] 4.2.7.2.686 [place] [id number] 147 2019-03-27 2019-03-27 [facility] 1.2.840.114 [id number] 88 00:00:00 00:00:00 Felix SPECIALTY 350.1.13.10 [facility] 4.2.7.2.686 [place] [id number] [facility] 2019-03-27 2019-03-27 Telephone [facility] 1.2.840.114 [id number] Univers 00:00:00 00:00:00 Steve SPECIALTY 350.1.13.10 ity of [facility] [place] [id number] [address] 2019-03-27 2019-03-27 [facility] 1.2.840.114 [id number] 88 Univers 00:00:00 00:00:00 Felix SPECIALTY 350.1.13.10 ity of [facility] 4.2.7.2.686 [place] [id number] [address] 2019-03-23 2019-03-23 Telephone [facility] 1.2.840.114 [id number] 00:00:00 00:00:00 Zana M SPECIALTY 350.1.13.10 [place] 4.2.7.2.686 [place] [id number] [facility] 2019-03-23 2019-03-23 Telephone [facility] 1.2.840.114 [id number] Univers 00:00:00 00:00:00 Zana M SPECIALTY 350.1.13.10 ity of [place] [id number] [address] 2019-03-22 2019-03-22 [facility] 1.2.840.114 [id number] 102 00:00:00 00:00:00 Steve SPECIALTY 350.1.13.10 [facility] 4.2.7.2.686 [place] [id number] 147 2019-03-22 2019-03-22 [facility]ill [facility] 1.2.840.114 [id number] 102 Univers 00:00:00 00:00:00 Steve SPECIALTY 350.1.13.10 ity of [facility] [place] [id number] [place] [address] [address] 2019-03-13 2019-03-13 Telephone [facility] 1.2.966.984 [id number] 00:00:00 00:00:00 Felix SPECIALTY 350.1.13.10 [facility] 4.2.7.2.686 [place] [id number] 401 2019-03-13 2019-03-13 [facility]phone [facility] 1.2.398.247 [id number] 6717 Univers 00:00:00 00:00:00 Felix SPECIALTY 350.1.13.10 ity of [facility] 4.2.7.2.686 [place] [id number] [address] 2019-03-06 2019-03-06 Telephone [facility] 1.2.200.885 [id number] 9621 00:00:00 00:00:00 Felix SPECIALTY 350.1.13.10 [facility] 4.2.7.2.686 [place] [id number] 401 2019-03-06 2019-03-06 [facility]phone [facility] 1.2.557.732 [id number] 9621 Univers 00:00:00 00:00:00 Felix SPECIALTY 350.1.13.10 ity of [facility] 4.2.7.2.686 [place] [id number] [address] 2019-03-02 2019-03-02 Telephone [facility] 1.2.840.114 [id number] Univers 00:00:00 00:00:00 Steve SPECIALTY 350.1.13.10 ity of [facility] [place] [id number] [place] [address] [address] 2019-03-02 2019-03-02 [facility]phone [facility] 1.2.209.393 [id number] 0622 Univers 00:00:00 00:00:00 Felix SPECIALTY 350.1.13.10 ity of [facility] 4.2.7.2.686 [place] as [place] [id number] [address] 2019-03-01 2019-03-01 Office Lillian [facility] 1.2.840.114 [id number] 10:54:40 12:12:56 Visit Felix SPECIALTY 350.1.13.10 [facility] 4.2.7.2.686 [place] [id number] [facility] 2019-03-01 2019-03-01 Office [facility] 1.2.840.114 [id number] [facility] 10:54:40 12:12:56 Visit Felix SPECIALTY 350.1.13.10 ity of [facility] 4.2.7.2.686 [place] [id number] [address] 2019-02-23 2019-02-23 Nurse Nurse, Namrata Moyer [facility] 1.2.840.114 [id number] [facility] 10:22:25 10:52:25 Visit JethroFelix SPECIALTY 350.1 .13.10 ity of [place] [id number] [address] 2019-02-22 2019-02-22 Telephone Lillian [facility] 1.2.687.680 [id number] Univers 00:00:00 00:00:00 Felix SPECIALTY 350.1.13.10 ity of [facility] 4.2.7.2.686 [place] [id number] [address] 2019-02-21 2019-02-21 Telephone Donna [facility] 1.2.840.114 [id number] Univers 00:00:00 00:00:00 Zana Antonio SPECIALTY 350.1.13.10 ity of [place] [id number] [address] 2019-02-13 2019-02-13 Adriana Mac [facility] 1.2.840.114 [id number] Univers 00:00:00 00:00:00 Steve SPECIALTY 350.1.13.10 ity of [facility] 4[place]2.[place] [id number] [address] 2018-03-08 2018-03-08 Office KATHY Morelos 1.2.840.114 [id number] 02 Univers 13:45:32 16:04:10 Visit Felix [facility] 350.1.13.10 ity of [facility] 4.2.7.2.686 [place] [id number] [address] Results Test Description Test Time Test Comments Results Result Comments Source CBC WITH DIFF 2023-02-01 06:35:36 Test Item Value Reference Range Interpretation Comme nts WBC (test code = 6690-2) 13.74 See_Comment H [A utomated message] The system which generated this result transmitted ref erence range: 4.20 - 10.70 10 *3/?L. The reference range was not used to interpret this result as normal/abnormal . RBC (test code = 789-8) 5.01 See_Comment [Au tomated message] The system which generated this result transmitted ref erence range: 4.26 - 5.52 10* 6/?L. The reference range was not used to interpret this result as normal/abnormal . HGB (test code = 718-7) 16.6 g/dL 12.2-16.4 H HCT (test code = 4544-3) 45.9 % 38.4-49.3 MCV (test code = 787-2) 91.6 fL 81.7-95.6 MCH (test code = 785-6) 33.1 pg 26.1-32.7 H MCHC (test code = 786-4) 36.2 g/dL 31.2-35.0 H RDW-SD (test code = 16474-7) 40.8 fL 38.5-51.6 RDW-CV (test code = 788-0) 12.3 % 12.1-15.4 PLT (test code = 777-3) 510 See_Comment H [Au tomated message] The system which generated this result transmitted ref erence range: 150 - 328 10*3/ ?L. The reference range was not used to interpret this result as normal/abnormal . MPV (test code = 17745-0) 9.2 fL 9.8-13.0 L NRBC/100 WBC (test code = 0.0 See_Comment [ Automated message] The system 2917622754) which generated this result transmitted ref erence range: 0.0 - 10.0 /100 WBCs. The reference range was not used to interpret this result as normal/abnormal . NRBC x10^3 (test code = See_Comment [Au tomated message] The system 4304967638) which generated this result transmitted ref erence range: 10*3/?L. The re ference range was not used to interpret this result as gladis l/abnormal. SEG % (test code = 31451-7) 40 % 33-76 LYMPH % (test code = 98650-8) 51 % 14-54 MONO % (test code = 61481-2) 9 % 0-4 H PLT ESTIMATE (test code = Increased Normal A 9317-9) GIANT PLATELETS (test code = Present See_Comment A [Automated message] The system 5908-9) which generated this result transmitted ref erence range: (none). The ref erence range was not used to int erpret this result as gladis l/abnormal. Lab Interpretation (test code Abnormal = 79888-4) [facility] [id number] 06:11:22 Test Item Value Reference Range Interpretation Comments TROPONIN I (test code = 0.002 ng/mL <=0.034 1910665691) JAMAL (test code = JAMAL) Reference (Normal) [...] biotin. Lab Interpretation Normal (test code = 09604-1) [facility] METABOLIC PANEL (37214)2023-02-01 06:00:02 Test Item Value Reference Range Interpretation Comments NA (test code = 141 mmol/L 135-145 6093518239) K (test code = 4.0 mmol/L 3.5-5.0 9699945413) CL (test code = 103 mmol/L 98-108 4306602963) CO2 TOTAL (test code 27 mmol/L 23-31 = 1757499542) AGAP (test code = 11 2-16 6209154276) BUN (test code = 15 mg/dL 7-23 1030829595) GLUCOSE (test code = 93 mg/dL 70-110 5597638043) CREATININE (test code 0.91 mg/dL 0.60-1.25 = 1624477322) TOTAL BILI (test code 0.8 mg/dL 0.1-1.1 = 3595455063) CALCIUM (test code = 9.8 mg/dL 8.6-10.6 8823105769) T PROTEIN (test code 7.3 g/dL 6.3-8.2 = 6150173347) ALBUMIN (test code = 4.6 g/dL 3.5-5.0 6425299450) ALK PHOS (test code = 117 U/L 34-122 8434427858) ALTv (test code = 19 U/L 5-50 2-6) AST(SGOT) (test code 22 U/L 13-40 = 3649069820) eGFR (test code = 107.3 mL/min/1.73m2 3231751848) JAMAL (test code = JAMAL) Association of [...] or urine or abnormalities in imaging tests). [facility] GLUCOSE (AUTOMATED)2023-01-18 14:52:41 Test Item Value Reference Range Interpretation Comments POCT GLU (test code = 1704030451) 110 mg/dL 70-110 Lab Interpretation (test code = Normal 65101-8) [facility] GLUCOSE (AUTOMATED)2023-01-18 14:52:41 Test Item Value Reference Range Interpretation Comments POCT GLU (test code = 9741510039) 110 mg/dL 70-110 Lab Interpretation (test code = Normal 77589-3) [facility] WITH [id number] 15:02:31 Test Item Value Reference Range Interpretation Comments WBC (test code = 11.06 See_Comment H [Automated 6690-2) message] The system which generated this result transmit rosanne reference range : 4.20 - 10.70 10*3/?L. The reference range was not used to interpret this result as normal/abnormal . RBC (test code = 5.24 See_Comment [Automated 789-8) message] The system which generated this result transmit rosanne reference range : 4.26 - 5.52 10*6/?L. The reference range was not used to interpret this result as normal/abnormal . HGB (test code = 17.2 g/dL 12.2-16.4 H 718-7) HCT (test code = 48.1 % 38.4-49.3 4544-3) MCV (test code = 91.8 fL 81.7-95.6 787-2) MCH (test code = 32.8 pg 26.1-32.7 H 785-6) MCHC (test code = 35.8 g/dL 31.2-35.0 H 786-4) RDW-SD (test code = 42.2 fL 38.5-51.6 35396-7) RDW-CV (test code = 12.5 % 12.1-15.4 788-0) PLT (test code = 510 See_Comment H [Automated 777-3) message] The system which generated this result transmit rosanne reference range : 150 - 328 10*3/ ?L. The reference range was not u sed to interpret th is result as normal/abnormal . MPV (test code = 8.8 fL 9.8-13.0 L 90871-0) NRBC/100 WBC (test 0.0 See_Comment [Automat ed code = 9108340312) message] The system which generated this result transmit rosanne reference range : 0.0 - 10.0 /100 WBCs. The reference range was not used to interpret this result as normal/abnormal . NRBC x10^3 (test code See_Comment [Auto mated = 5725559051) message] The system which generated this result transmit rosanne reference range : 10*3/?L. The reference range was not used to interpret this result as normal/abnormal . GRAN MAT (NEUT) % 51.0 % (test code = 770-8) IMM GRAN % (test code 0.80 % = 4528512148) LYMPH % (test code = 37.1 % 736-9) MONO % (test code = 10.6 % 5905-5) EOS % (test code = 0.0 % 713-8) BASO % (test code = 0.5 % 706-2) GRAN MAT x10^3(ANC) 5.65 10*3/uL 1.99-6.95 (test code = 5116808758) IMM GRAN x10^3 (test 0.09 10*3/uL 0.00-0.06 H code = 9141105408) LYMPH x10^3 (test code 4.10 10*3/uL 1.09-3.23 H = 731-0) MONO x10^3 (test code 1.17 10*3/uL 0.36-1.02 H = 742-7) EOS x10^3 (test code = 0.06-0.53 L 711-2) BASO x10^3 (test code 0.05 10*3/uL 0.01-0.09 = 704-7) ACANTHOCYTES (test 1+ See_Comment [Automat ed code = 7789-1) message] The system which generated this result transmit rosanne reference range : 1+. The referen ce range was not u sed to interpret th is result as normal/abnormal . HJ BODIES (test code = Present A 7793-3) SIDEROTIC GRAN (test Suggestive of A code = 7795-8) REACT LYMPHS (test Rare code = 5719659268) Lab Interpretation Abnormal (test code = 29136-5) [facility] METABOLIC PANEL (NA, K, CL, CO2, GLUCOSE, BUN, CREATININE, CA)2023-01-15 13:56:39 Test Item Value Reference Range Interpretation Comments NA (test code = 142 mmol/L 135-145 5095268923) K (test code = 3.9 mmol/L 3.5-5.0 9108209452) CL (test code = 105 mmol/L 98-108 9839402222) CO2 TOTAL (test code 26 mmol/L 23-31 = 8576258660) AGAP (test code = 11 2-16 7388532178) BUN (test code = 9 mg/dL 7-23 1935048877) GLUCOSE (test code = 97 mg/dL 70-110 4688078272) CREATININE (test code 0.73 mg/dL 0.60-1.25 = 3175044697) CALCIUM (test code = 9.5 mg/dL 8.6-10.6 5279200060) eGFR (test code = 138.4 mL/min/1.73m2 7242781549) JAMAL (test code = JAMAL) Association of [...] or urine or abnormalities in imaging tests). [facility] Screen -2023-01-15 13:06:00 Test Item Value Reference Range Interpretation Comments ABO & RH (test code = 20) O Negative IAT (test code = 1185) Negative [facility]vineLIPASE2023-04-13 11:37:51 Test Item Value Reference Range Interpretation Comments LIPASE (test code = 9978896351) 64 U/L 0-220 Lab Interpretation (test code = Normal 24335-7) [facility]vineKEPPRA (LEVETIRACETAM)2022-10-29 10:13:11 Test Item Value Reference Range Interpretation Comments KEPPRA (test code = 12-46 L 4548856151) JAMAL (test code = JAMAL) Therapeutic range: 12-46 ?g/mL ? ?Toxic: Not well established.Test developed and characteristics determined by [facility] Laboratory Services. Lab Interpretation Abnormal (test code = 15325-6) [facility]vineCOMP. METABOLIC PANEL (04192)2022-10-29 10:01:02 Test Item Value Reference Range Interpretation Comments NA (test code = 139 mmol/L 135-145 5089469191) K (test code = 4.4 mmol/L 3.5-5.0 3701729149) CL (test code = 105 mmol/L 98-108 9986715149) CO2 TOTAL (test code 28 mmol/L 23-31 = 2871611808) AGAP (test code = 6 2-16 1617889206) BUN (test code = 14 mg/dL 7-23 2751563766) GLUCOSE (test code = 100 mg/dL 70-110 2578920753) CREATININE (test code 0.78 mg/dL 0.60-1.25 = 8492204659) TOTAL BILI (test code 0.9 mg/dL 0.1-1.1 = 9032733924) CALCIUM (test code = 9.6 mg/dL 8.6-10.6 6111085304) T PROTEIN (test code 7.1 g/dL 6.3-8.2 = 3317380216) ALBUMIN (test code = 4.7 g/dL 3.5-5.0 9798722622) ALK PHOS (test code = 114 U/L 34-122 1410064770) ALTv (test code = 21 U/L 5-50 2-6) AST(SGOT) (test code 37 U/L 13-40 = 7277424923) eGFR (test code = 129.6 mL/min/1.73m2 3541807888) JAMAL (test code = JAMAL) Association of [...] or urine or abnormalities in imaging tests). [facility]vineMAGNESIUM2023-04-13 10:01:02 Test Item Value Reference Range Interpretation Comments MAGNESIUM (test code = 7109039010) 2.2 mg/dL 1.7-2.4 Lab Interpretation (test code = Normal 43554-5) [facility] WITH [id number] 09:57:59 Test Item Value Reference Range Interpretation [...] RDW-SD (test code = 39.8 fL 38.5-49.0 60365-5) RDW-CV (test code = 12.2 % 11.5-14.0 788-0) PLT (test code = 500 See_Comment H [Automated 777-3) message] The sy stem which generated this result transmitted reference range : 133 - 320 10*3/ ?L. The reference r genaro was not used to interpret this result as normal/abnormal . MPV (test code = 8.9 fL 9.3-12.9 L 63678-4) NRBC/100 WBC (test 0.0 See_Comment [Automat ed code = 5029615065) message] The system which generated this result transmitted reference range : 0.0 - 10.0 /100 WBCs. The refer ence range was not u sed to interpret th is result as normal/abnormal . NRBC x10^3 (test code See_Comment [Auto mated = 7154083179) message] The s ystem which generated this result transmitted reference range : 10*3/?L. The reference range was not used to interpret this result as normal/abnormal . GRAN MAT (NEUT) % 36.2 % (test code = 770-8) IMM GRAN % (test code 0.90 % = 7991608380) LYMPH % (test code = 53.2 % 736-9) MONO % (test code = 9.4 % 5905-5) EOS % (test code = 0.0 % 713-8) BASO % (test code = 0.3 % 706-2) GRAN MAT x10^3(ANC) 5.17 10*3/uL 1.50-10.30 (test code = 0576235407) IMM GRAN x10^3 (test 0.13 10*3/uL 0.00-0.06 H code = 2543273481) LYMPH x10^3 (test code 7.61 10*3/uL 0.70-7.40 H = 731-0) MONO x10^3 (test code 1.35 10*3/uL 0.00-0.50 H = 742-7) EOS x10^3 (test code = 0.00-0.40 711-2) BASO x10^3 (test code 0.04 10*3/uL 0.00-0.10 = 704-7) HJ BODIES (test code = Present A 7793-3) REACT LYMPHS (test Rare code = 5771663348) Lab Interpretation Abnormal (test code = 36421-7) [facility] WITH [id number] 02:35:47 Test Item Value Reference Range Interpretation Comments WBC (test code = 11.68 See_Comment [Automated 0270-2) message] The sy stem which generated this result transmitted reference range : 4.50 - 13.50 10*3/?L. The reference range was not used to interpret this result as normal/abnormal . RBC (test code = 5.24 See_Comment [Automated 789-8) message] The sy stem [...] RDW-SD (test code = 39.6 fL 38.5-49.0 19271-1) RDW-CV (test code = 12.1 % 11.5-14.0 788-0) PLT (test code = 486 See_Comment H [Automated 777-3) message] The sy stem which generated this result transmitted reference range : 133 - 320 10*3/ ?L. The reference r genaro was not used to interpret this result as normal/abnormal . MPV (test code = 9.1 fL 9.3-12.9 L 16956-6) NRBC/100 WBC (test 0.0 See_Comment [Automat ed code = 2046706040) message] The system which generated this result transmitted reference range : 0.0 - 10.0 /100 WBCs. The refer ence range was not u sed to interpret th is result as normal/abnormal . NRBC x10^3 (test code See_Comment [Auto mated = 8220869850) message] The s ystem which generated this result transmitted reference range : 10*3/?L. The reference range was not used to interpret this result as normal/abnormal . SEG % (test code = 40 % 33-76 16141-5) LYMPH % (test code = 50 % 15-55 47632-6) MONO % (test code = 10 % 0-4 H 77476-0) ANC (test code = 4.67 10*3/uL 1.50-10.30 753-4) Lab Interpretation Abnormal (test code = 14662-7) [facility] [id number] 02:22:04 Test Item Value Reference Range Interpretation Comments TROPONIN I (test code = 0.002 ng/mL <=0.034 [id number]) JAMAL (test code = JAMAL) Reference (Normal) [...] biotin. Lab Interpretation Normal (test code = 51497-9) [id number]:12:53 Test Item Value Reference Interpretation Comments Range D-DIMER (test code = See_Comment [Autom ated [id number]) message] The system which generated this result [...] diagnosis. Lab Interpretation Normal (test code = 92389-6) [facility]. METABOLIC PANEL (04041)2022-10-28 02:10:47 Test Item Value Reference Range Interpretation Comments NA (test code = 141 mmol/L 135-145 [id number]) K (test code = 4.1 mmol/L 3.5-5.0 7456418716) CL (test code = 107 mmol/L 98-108 8140351583) CO2 TOTAL (test code 23 mmol/L 23-31 = 3160842161) AGAP (test code = 11 2-16 9448366949) BUN (test code = 15 mg/dL 7-23 4354295049) GLUCOSE (test code = 104 mg/dL 70-110 6797706673) CREATININE (test code 0.73 mg/dL 0.60-1.25 = 9841658879) TOTAL BILI (test code 0.8 mg/dL 0.1-1.1 = 2794282745) CALCIUM (test code = 9.4 mg/dL 8.6-10.6 0915541219) T PROTEIN (test code 7.0 g/dL 6.3-8.2 = 0513879083) ALBUMIN (test code = 4.6 g/dL 3.5-5.0 9027913141) ALK PHOS (test code = 109 U/L 34-122 1269133355) ALTv (test code = 21 U/L 5-50 1742-6) AST(SGOT) (test code 23 U/L 13-40 = 8191701363) eGFR (test code = 139.9 mL/min/1.73m2 9564539963) JAMAL (test code = JAMAL) Association of [...] or urine or abnormalities in imaging tests). [facility] WITH [id number] 05:00:52 Test Item Value Reference Range Interpretation Comments WBC (test code = 11.83 See_Comment [Automated 9490-2) message] The system which generated this result transmit rosanne reference range : 4.50 - 13.50 10*3/?L. The reference range was not used to interpret this result as normal/abnormal . RBC (test code = 4.93 See_Comment [Automated 599-8) message] The system which generated this result [...] RDW-SD (test code = 39.3 fL 38.5-49.0 47934-3) RDW-CV (test code = 11.9 % 11.5-14.0 788-0) PLT (test code = 450 See_Comment H [Automated 337-3) message] The system which generated this result transmit rosanne reference range : 133 - 320 10*3/ ?L. The reference range was not u sed to interpret th is result as normal/abnormal . MPV (test code = 9.2 fL 9.3-12.9 L 57801-1) NRBC/100 WBC (test 0.0 See_Comment [Automat ed code = 0228517454) message] The system which generated this result transmit rosanne reference range : 0.0 - 10.0 /100 WBCs. The reference range was not used to interpret this result as normal/abnormal . NRBC x10^3 (test code See_Comment [Auto mated = 7996122051) message] The system which generated this result transmit rosanne reference range : 10*3/?L. The reference range was not used to interpret this result as normal/abnormal . GRAN MAT (NEUT) % 34.0 % (test code = 770-8) IMM GRAN % (test code 0.60 % = 6474415384) LYMPH % (test code = 54.3 % 736-9) MONO % (test code = 9.2 % 5905-5) EOS % (test code = 1.6 % 713-8) BASO % (test code = 0.3 % 706-2) GRAN MAT x10^3(ANC) 4.03 10*3/uL 1.50-10.30 (test code = 4896620231) IMM GRAN x10^3 (test 0.07 10*3/uL 0.00-0.06 H code = 6566503296) LYMPH x10^3 (test code 6.42 10*3/uL 0.70-7.40 = 731-0) MONO x10^3 (test code 1.09 10*3/uL 0.00-0.50 H = 742-7) EOS x10^3 (test code = 0.19 10*3/uL 0.00-0.40 711-2) BASO x10^3 (test code 0.03 10*3/uL 0.00-0.10 = 704-7) SIDEROTIC GRAN (test Suggestive of A code = 7795-8) REACT LYMPHS (test Rare code = 0651273591) Lab Interpretation Abnormal (test code = 99904-9) [facility]. METABOLIC PANEL (87015)2022-10-09 04:54:22 Test Item Value Reference Range Interpretation Comments NA (test code = 142 mmol/L 135-145 7872286914) K (test code = 4.0 mmol/L 3.5-5.0 0804133822) CL (test code = 108 mmol/L 98-108 5792576610) CO2 TOTAL (test code 25 mmol/L 23-31 = 1137259246) AGAP (test code = 9 2-16 4919371223) BUN (test code = 9 mg/dL 7-23 8269710863) GLUCOSE (test code = 106 mg/dL 70-110 2644242360) CREATININE (test code 0.74 mg/dL 0.60-1.25 = 2091293766) TOTAL BILI (test code 0.7 mg/dL 0.1-1.1 = 8878678664) CALCIUM (test code = 9.4 mg/dL 8.6-10.6 5058403615) T PROTEIN (test code 6.9 g/dL 6.3-8.2 = 2338285971) ALBUMIN (test code = 4.4 g/dL 3.5-5.0 3010211104) ALK PHOS (test code = 90 U/L 34-122 9449404579) ALTv (test code = 18 U/L 5-50 1742-6) AST(SGOT) (test code 22 U/L 13-40 = 2865365744) eGFR (test code = 137.8 mL/min/1.73m2 1563386882) JAMAL (test code = JAMAL) Association of [...] or urine or abnormalities in imaging tests). [facility]42 Test Item Value Reference Range Interpretation Comments LIPASE (test code = 4524015008) 106 U/L 0-220 Lab Interpretation (test code = Normal 70376-3) [facility] [id number] 06:31:17 Test Item Value Reference Range Interpretation Comments NT-proBNP (test code See_Comment [Autom ated = 0004971840) message] The system which generated this result transmitted reference range : <=125. The reference range was not used to interpret this result as normal/abnormal . JAMAL (test code = JAMAL) Biotin has been reported to cause a negative bias, interpret results relative to patient's use of biotin. Lab Interpretation Normal (test code = 40758-9) [facility] WITH [id number] 06:22:31 Test Item Value Reference Range Interpretation Comments WBC (test code = See_Comment H [Automated 4990-2) message] The sy stem which generated this result transmitted reference range : 4.50 - 13.50 10*3/?L. The reference range was not used to interpret this result as normal/abnormal . RBC (test code = See_Comment [Automated 689-8) message] The sy stem which generated this [...] RDW-SD (test code = 43.3 fL 38.5-49.0 54608-3) RDW-CV (test code = 13.1 % 11.5-14.0 788-0) PLT (test code = See_Comment H [Automated 777-3) message] The sy stem which generated this result transmitted reference range : 133 - 320 10*3/ ?L. The reference r genaro was not used to interpret this result as normal/abnormal . MPV (test code = 8.9 fL 9.3-12.9 L 92288-9) NRBC/100 WBC (test See_Comment [Automat ed code = 9905394550) message] The system which generated this result transmitted reference range : 0.0 - 10.0 /100 WBCs. The refer ence range was not u sed to interpret th is result as normal/abnormal . NRBC x10^3 (test code See_Comment [Auto mated = 1050517499) message] The s ystem which generated this result transmitted reference range : 10*3/?L. The reference range was not used to interpret this result as normal/abnormal . GRAN MAT (NEUT) % 40.3 % (test code = 770-8) IMM GRAN % (test code 2.30 % = 3603160384) LYMPH % (test code = 33.9 % 736-9) MONO % (test code = 9.1 % 5905-5) EOS % (test code = 13.1 % 713-8) BASO % (test code = 1.3 % 706-2) GRAN MAT x10^3(ANC) 5.45 10*3/uL 1.50-10.30 (test code = 9283130610) IMM GRAN x10^3 (test 0.31 10*3/uL 0.00-0.06 H code = 3310992951) LYMPH x10^3 (test code 4.60 10*3/uL 0.70-7.40 = 731-0) MONO x10^3 (test code 1.24 10*3/uL 0.00-0.50 H = 742-7) EOS x10^3 (test code = 1.78 10*3/uL 0.00-0.40 H 711-2) BASO x10^3 (test code 0.18 10*3/uL 0.00-0.10 H = 704-7) REACT LYMPHS (test Moderate code = 9330584573) Lab Interpretation Abnormal (test code = 48712-4) [facility]IT[facility] [id number] 06:20:41 Test Item Value Reference Interpretation Comments Range TROPONIN I (test 0.001 ng/mL See_Comment [Automated code = 3758042626) message] The system which generated this result [...] biotin. Lab Interpretation Normal (test code = 55064-1) [facility] METABOLIC PANEL (00469)2022-06-21 06:09:03 Test Item Value Reference Range Interpretation Comments NA (test code = 138 mmol/L 135-145 8385402000) K (test code = 4.4 mmol/L 3.5-5.0 8952760961) CL (test code = 104 mmol/L 98-108 6473171648) CO2 TOTAL (test code = 27 mmol/L 23-31 3678717656) AGAP (test code = 2-16 4665818673) BUN (test code = 10 mg/dL 7-23 2746048422) GLUCOSE (test code = 115 mg/dL 70-110 H 4211956991) CREATININE (test code = 0.71 mg/dL 0.60-1.25 0592741098) TOTAL BILI (test code = 0.8 mg/dL 0.1-1.7 5147574314) CALCIUM (test code = 9.6 mg/dL 8.6-10.6 2286964736) T PROTEIN (test code = 6.6 g/dL 6.3-8.2 1392816355) ALBUMIN (test code = 4.3 g/dL 3.5-5.0 7799974539) ALK PHOS (test code = 107 U/L 34-122 2170251926) ALTv (test code = 27 U/L 5-50 1742-6) AST(SGOT) (test code = 29 U/L 13-40 8979019423) eGFR (test code = mL/min/1.73m2 3453456496) JAMAL (test code = JAMAL) Association of [...] tests). Lab Interpretation Abnormal (test code = 04087-9) [facility] THRMPLAS [id number] 06:07:03 Test Item Value Reference Range Interpretation Comments APTT Patient (test See_Comment [Automat ed code = 3173-2) message] The system which generated this result transmitted reference range : 23 - 38 Seconds . The reference range was not used to interpr et this result as normal/abnormal . JAMAL (test code = JAMAL) The [facility] patient population mean normal value for aPTT is 30 seconds. Lab Interpretation Normal (test code = 13653-5) [facility]vinePROTHROMBIN TIME / [id number] 06:05:04 Test Item Value Reference Range Interpretation Comments PROTIME PATIENT (test See_Comment [Auto mated message] code = 5964-2) The system wh ich generated this result transmitted ref erence range: 12.0 - 1 4.7 Seconds. The re ference range was not u sed to interpret this result as normal/abnor mal. INR (test code = 6301-6) Nor mal INR <1.1; Warfarin Therap eutic range 2.0 to 3. 0 or 2.5 to 3.5, dep ending upon the indica tions. Lab Interpretation (test Normal code = 04976-2) [facility] MET[facility]OLIC PANEL (24044)2022-05-29 02:48:30 Test Item Value Reference Range Interpretation Comments NA (test code = 140 mmol/L 135-145 7319969853) K (test code = 4.4 mmol/L 3.5-5.0 1751627385) CL (test code = 103 mmol/L 98-108 4358666147) CO2 TOTAL (test code = 24 mmol/L 23-31 2322925559) AGAP (test code = 2-16 4667688945) BUN (test code = 13 mg/dL 7-23 3017427988) GLUCOSE (test code = 183 mg/dL 70-110 H 8451049456) CREATININE (test code = 0.74 mg/dL 0.60-1.25 0380609009) TOTAL BILI (test code = 0.5 mg/dL 0.1-1.0 9968551201) CALCIUM (test code = 10.4 mg/dL 8.6-10.6 5332071622) T PROTEIN (test code = 7.8 g/dL 6.3-8.2 6688196748) ALBUMIN (test code = 5.0 g/dL 3.5-5.0 0490925999) ALK PHOS (test code = 140 U/L 34-122 H 0971543455) ALTv (test code = 26 U/L 5-50 2-6) AST(SGOT) (test code = 26 U/L 13-40 0874530262) eGFR (test code = mL/min/1.73m2 0689671859) JAMAL (test code = JAMAL) Association of [...] tests). Lab Interpretation Abnormal (test code = 01411-8) [facility] WITH [id number] 02:38:32 Test Item Value Reference Range Interpretation [...] (test code = 37.9 fL 38.5-49.0 L 75248-6) RDW-CV (test code = 11.9 % 11.5-14.0 788-0) PLT (test code = See_Comment H [Automated 777-3) message] The system which generated this result transmit rosanne reference range : 133 - 320 10*3/ ?L. The reference range was not u sed to interpret th is result as normal/abnormal . MPV (test code = 8.9 fL 9.3-12.9 L 26245-9) NRBC/100 WBC (test See_Comment [Automat ed code = 4519379761) message] The system which generated this result transmit rosanne reference range : 0.0 - 10.0 /100 WBCs. The reference range was not used to interpret this result as normal/abnormal . NRBC x10^3 (test code See_Comment [Auto mated = 1706220827) message] The system which generated this result transmit rosanne reference range : 10*3/?L. The reference range was not used to interpret this result as normal/abnormal . GRAN MAT (NEUT) % 84.1 % (test code = 770-8) IMM GRAN % (test code 1.50 % = 9968685082) LYMPH % (test code = 13.1 % 736-9) MONO % (test code = 0.8 % 5905-5) EOS % (test code = 0.0 % 713-8) BASO % (test code = 0.5 % 706-2) GRAN MAT x10^3(ANC) 12.92 10*3/uL 1.50-10.30 H (test code = 6411047472) IMM GRAN x10^3 (test 0.23 10*3/uL 0.00-0.06 H code = 9793308125) LYMPH x10^3 (test code 2.02 10*3/uL 0.70-7.40 = 731-0) MONO x10^3 (test code 0.13 10*3/uL 0.00-0.50 = 742-7) EOS x10^3 (test code = 0.00-0.40 711-2) BASO x10^3 (test code 0.07 10*3/uL 0.00-0.10 = 704-7) Lab Interpretation Abnormal (test code = 65944-8) [facility]vine[facility]I-[facility]CLE[facility] ANTIBODY (FERNANDA)2022-04-09 12:45:36 Test Item Value Reference Range Interpretation Comments ANTI-NUCLEAR ANTIBODY (FERNANDA) (BEAKER) Negative Negative (test code = 418) Test performed by IFA method.Test performed by IFA method.[id number] 18:24:41 Test Item Value Reference Range Interpretation Comments FERRITIN (BEAKER) (test code = 130.99 ng/mL 5.00-275.00 361) Foreign Student Adviser ID - BSHEPATITIS C [id number] 17:56:40 Test Item Value Reference Range Interpretation Comments HEPATITIS C ANTIBODY (BEAKER) Nonreactive Nonreactive (test code = 367) Foreign Student Adviser ID - BSHEPATITIS B SURFACE [id number] 17:52:06 Test Item Value Reference Range Interpretation Comments HEPATITIS B SURFACE ANTIBODY < mIU/mL <8.0 (BEAKER) (test code = 647) Foreign Student Adviser ID - BSHEPATITIS A ANTIBODY, [id number] 17:52:01 Test Item Value Reference Range Interpretation Comments HEPATITIS A IGG ANTIBODY (BEAKER) Reactive Nonreactive A (test code = 2797) Foreign Student Adviser ID - BSHEPATITIS B CORE ANTIBODY, [id number] 17:49:35 Test Item Value Reference Range Interpretation Comments HEPATITIS B CORE TOTAL ANTIBODY Nonreactive Nonreactive (BEAKER) (test code = 497) Foreign Student Adviser ID - BSHEPATITIS B SURFACE [id number] 17:49:35 Test Item Value Reference Range Interpretation [...] to interpret this result as normal/abnormal . Foreign Student Adviser ID - BSIRON, TIBC, % SAT. (WITHOUT FERRITIN)2022-04-08 17:34:53 Test Item Value Reference Range Interpretation Comments IRON (BEAKER) (test code = 547) 122.0 ug/dL 40.0-160.0 TOTAL IRON BINDING CAPACITY 306 ug/dL 250-450 (BEAKER) (test code = 769) IRON % SATURATION (2) (BEAKER) 40 % 20-55 (test code = 2590) Foreign Student Adviser ID - [id number] 17:30:09 Test Item Value Reference Range Interpretation Comments ALPHA-1 ANTITRYPSIN (BEAKER) 140.80 mg/dL 90.00-200.00 (test code = 502) Foreign Student Adviser ID - BSCOMPREHENSIVE METABOLIC [id number] 17:18:27 Test Item Value Reference Range Interpretation [...] not appl icable for dialysis patien ts Foreign Student Adviser ID - BSBILIRUBIN, [id number] 17:18:27 Test Item Value Reference Range Interpretation Comments BILIRUBIN DIRECT (BEAKER) (test 0.3 mg/dL 0.1-0.5 code = 706) Foreign Student Adviser ID - BSCBC W/PLT COUNT & AUTO [id number] 16:58:21 Test Item Value Reference Range Interpretation [...] % 0-1 PERCENT (BEAKER) (test code = 2801) Notes Date/Time Note Provider Source 2023-02-18 Formatting of this note might be differe nt from the original. Sarbjit Coyle RN [facility] 10:54:02-00:00 Pt's mother called to let us know that cardio clearance cannot be given yet until further diagnostics are completed as per cruller maker 2023-02-18 [facility] 10:06:58-00:00 Medical Records requested fr om [facility]. For Dr. Priest, Dr. Michael, Dr. Bosch faxed to [facility] Dept. Follow up with them for status updates. Electronically signed by Michele Simons MA a t 02/18/2023 10:08 AM CDT 2023-02-18 Formatting of this note might be differe nt from the original. Sarbjit Coyle RN [facility] 09:06:46-00:00 Pt's mother returned call an d stated she would put a call into [facility] to see if clearance can be given. 2023-02-18 Formatting of this note might be differe nt from the original. Sarbjit Coyle RN [facility] 08:57:44-00:00 I called pt to ask where we are on getting cardio clearance so pt can get EGD. Pt has cardio appt on 02/23/23. No answer, I left VM with my call back number. 2023-02-10 Formatting of this note might be differe nt from the original. Christen Siddiqi MA [facility] 09:41:44-00:00 Spoke to Martita with [facility], medication is to be sent to patient. Verbal understanding. 2023-02-09 Formatting of this note might be differe nt from the original. Rosemary Siddiqi [facility] 16:45:59-00:00 Manjinder Arrieta is a 17 year old male Anabela calling w/ [facility] needing to know where to dispense the medication nucala 100mg: to the patient or to the office? Please call to confirm. Electronically signed by Rosemary Siddiqi at 0 02/09/2023 4:47 PM CDT
[2023-02-21 22:53] LABS: Absolute Lymphocytes (CBC) 5.1 K/uL (0.7-4.9); Hematocrit 44.4 % (39.6-49.0); Lymphocytes % 40.6 % (15.3-44.8); MCV 91.2 fL (80-100); MPV 7.3 fL (7.6-11.3); Platelets 490 thou/uL (152-406); RBC Red Blood Cell Count 4.87 M/uL (4.33-5.43)
[2023-02-21 22:54] LABS: Protime INR 1.06
[2023-02-21] MEDS ORDERED: ACETAMINOPHEN 500 MG TAB ONE (23:03)
[2023-02-21] MEDS ORDERED: IBUPROFEN 400 MG TAB ONE (23:03)
[2023-02-21 23:10] LABS: Bilirubin Direct 0.1 mg/dL (0-0.2); Bilirubin Indirect, Calculated 0.5 mg/dL (0.2-0.8); Bilirubin Total 0.6 mg/dL (0.2-1.0); Magnesium 2.2 mg/dL (1.6-2.4); Potassium 3.5 mEq/L (3.5-5.1); Protein, Total 7.1 g/dL (6.4-8.2); Troponin High Sensitivity 4.8 pg/mL (<58.9)
--- NOTE | 2023-02-21 23:49 | EDPHYS ---
Physician Documentation [facility] Name: Manjinder Arrieta Age: 17 yrs Sex: Male : 2005 Arrival Date: 02/21/2023 Time: 21:48 Bed 13 Private MD: ED Physician Tyler Padilla HPI: 02/21 21:58 This 17 yrs old Male presents to ER via Unassigned with complaints of Chest sp4 Pain, Arm tingling. 22:01 Allergies - adhesive tape; Adhesives; Albuterol; cefixime; Clindamycin; Latex, Natural sp4 Rubber; montelukast; [place] (Prunus Persica); PENICILLINS; Prednisone; Sulfa (Sulfonamide Antibiotics); Suprax; ld1 PMHx: ADD/ADHD; Anemia; Anxiety; Asthma; Autism; bacterial meningitis; Bipolar disorder; Depression; epillepsy; hepatosplegomegaly; Migraines; ld1 PSHx: Adenoid excision; ear tubes; eye surgery; fundiplication; Splenectomy; tear duct surgeries; Tonsillectomy;. 22:09 Patient is 17-year-old male with history of autism generally he refuses to communicate sp4 with strangers. Patient mostly goes to [facility] for his primary care and management. Patient's medications include breast 3, buspirone, cetirizine, diazepam, Abilify, hydrocortisone, Imitrex, ipratropium, levalbuterol, Keppra oral solution, Vyvanse, methocarbamol, metoprolol succinate 25 mg daily, multivitamin, Nystop nystatin/omeprazole, Ellipta, risperidone, sumatriptan. . Patient has multiple allergies including to adhesives. Past medical history includes allergic rhinitis, delay in development, autism, general convulsive epilepsy, behavioral problems, learning disability, attention deficit hyperactivity disorder, mixed depression and anxiety, oppositional defiant disorder, hallucinations, dyslexia, patent ductus arteriosus, irritability, hereditary spherocytosis, allergic asthma, disruptive mood dysregulation disorder, nonallergic rhinitis, palpitations, syncope and collapse.. Parent stated patient with refused to speak with a stranger but patient was able to communicate to parents that he is having chest pain with radiation to the left arm tingling in the left arm starting at 8 PM. No other complaints. Patient arrived in a wheelchair.. Historical: - Allergies: 22:28 Sulfa (Sulfonamide Antibiotics); pf1 22:28 Albuterol; pf1 22:28 Adhesives; pf1 22:28 adhesive tape; pf1 22:28 Clindamycin; pf1 22:28 Latex, Natural Rubber; pf1 22:28 [place] (Prunus Persica); pf1 22:28 PENICILLINS; pf1 22:28 Prednisone; pf1 22:28 montelukast; pf1 22:28 Suprax; pf1 22:28 cefixime; pf1 22:28 Vancomycin; pf1 - Immunization history:: Adult Immunizations up to date, Client reports receiving the 2nd dose of the Covid vaccine, Last tetanus immunization: < 5 years ago Flu vaccine is up to date. - Social history:: Smoking status: Patient denies any tobacco usage or history of. Patient/guardian denies using alcohol, street drugs. - Family history:: not pertinent. ROS: 23:39 Constitutional: Negative for fever, chills, and weight loss, positive for chest pain sp4 with radiation to left arm Eyes: Negative for injury, pain, redness, and discharge, Cardiovascular: Negative for palpitations, and edema, positive for chest pain 23:39 All other systems are negative. Exam: 23:36 ECG was reviewed by the Attending Physician. EKG time 2216,. There is normal sinus sp4 rhythm at the rate of 73, no ST elevation or depression, no ectopy. Normal EKG 23:39 Constitutional: This is a well developed, well nourished patient who is awake, alert, sp4 and in no acute distress. Signs of autism and developmental delay on exam Head/Face: Normocephalic, atraumatic. Eyes: Pupils equal round and reactive to light, extra-ocular motions intact. Lids and lashes normal. Conjunctiva and sclera are not injected. Cornea within normal limits. Periorbital areas with no swelling, redness, or edema. ENT: Nares patent. No nasal discharge, no septal abnormalities noted. Tympanic membranes are normal and external auditory canals are clear. Oropharynx with no redness, swelling, or masses, exudates, or evidence of obstruction, uvula midline. Mucous membranes moist. Neck: Trachea midline, no thyromegaly or masses palpated, and no cervical lymphadenopathy. Supple, full range of motion without nuchal rigidity, or vertebral point tenderness. Chest/axilla: Normal chest wall appearance and motion. Nontender with no deformity. No lesions are appreciated. Cardiovascular: Regular rate and rhythm with a normal S1 and S2. No gallops, murmurs, or rubs. Normal PMI, no JVD. No pulse deficits. Respiratory: Lungs have equal breath sounds bilaterally, clear to auscultation and percussion. No rales, rhonchi or wheezes noted. No increased work of breathing, no retractions or nasal flaring. Abdomen/GI: Soft, non-tender, with normal bowel sounds. No distension or tympany. No guarding or rebound. No evidence of tenderness throughout. Back: No spinal tenderness. No costovertebral tenderness. Skin: Warm, dry with normal turgor. Normal color with no rashes, no lesions, and no evidence of cellulitis. MS/ Extremity: Pulses equal, no cyanosis. Neurovascular intact. Full, normal range of motion. Neuro: Awake and alert, GCS 15, oriented to person, place, time, and situation. Cranial nerves II-XII grossly intact. Motor strength 5/5 in all extremities. Sensory grossly intact. Psych: Awake, alert, with orientation to person, patient is overall cooperative and pleasant, has signs of developmental delay Vital Signs: 22:11 BP 129 / 98; Pulse 81; Resp 18; Temp 98.2; Pulse Ox 97% on R/A; Weight 96.5 kg; Height pf1 5 ft. 8 in. ; Pain 10/10; 23:00 BP 122 / 81; Pulse 77; Resp 18 S; Pulse Ox 100% on R/A; ha1 02/22 00:00 BP 121 / 76; Pulse 74; Resp 18; Pulse Ox 99% on R/A; ha1 02/21 22:11 Body Mass Index 32.35 (96.50 kg, 172.72 cm) pf1 02/21 22:11 Pain Scale: Adult pf1 MDM: 02/21 22:15 Patient medically screened. sp4 23:36 ED course: EXAM DESCRIPTION: Chest Single View CLINICAL HISTORY: CHEST PAIN COMPARISON: sp4 11/10/2022 FINDINGS: Single frontal radiograph view of the chest. Cardiomediastinal silhouette: Normal size and contour. Lungs: Low lung volumes. Leads overlie the chest. Linear bibasilar opacities. No pneumothorax or large effusion. Bones: No acute osseous abnormality. Upper abdomen: No abnormality identified. IMPRESSION: Linear bibasilar opacities may be related to low lung volumes and subsegmental atelectasis. . 23:39 HEART Score: History: Slightly Suspicious (0), ECG: Normal (0), Age: < or = 45 years sp4 (0), Risk Factors: No Risk Factors Known (0), Troponin: < or = 1 x Normal Limit (0), Total Score = 0. Data reviewed: vital signs, nurses notes, old medical records, lab test result(s), EKG, radiologic studies, plain films. ED course: Work-up is normal today. Patient's prior work-up from October 2022 is also normal. At this time no suspicion for acute cardiac emergency, patient stable for discharge home. 23:47 Differential diagnosis: abnormal EKG, acute pericarditis, anxiety, chest wall pain, sp4 costochondritis, esophagitis, gastritis. ED course: There is no sign of acute ACS, patient stable for discharge home. 02/21 22:08 Order name: Basic Metabolic Panel; Complete Time: 23:35 sp4 02/21 22:08 Order name: CBC with Diff; Complete Time: 23:35 sp4 02/21 22:08 Order name: LFT's; Complete Time: 23:35 sp4 02/21 22:08 Order name: Magnesium; Complete Time: 23:35 sp4 02/21 22:08 Order name: NT PRO-BNP; Complete Time: 23:35 sp4 02/21 22:08 Order name: PT-INR; Complete Time: 23:35 sp4 02/21 22:08 Order name: Troponin HS; Complete Time: 23:35 sp4 02/21 22:08 Order name: XRAY Chest (1 view) sp4 02/21 22:01 Order name: EKG; Complete Time: 22:02 sp4 02/21 22:01 Order name: EKG - Nurse/Tech; Complete Time: 22:23 sp4 02/21 22:08 Order name: Cardiac monitoring; Complete Time: 22:23 sp4 02/21 22:08 Order name: IV Saline Lock; Complete Time: 22:36 sp4 02/21 22:08 Order name: Labs collected and sent; Complete Time: 22:36 sp4 02/21 22:08 Order name: O2 Per Protocol; Complete Time: 22:36 sp4 02/21 22:08 Order name: O2 Sat Monitoring; Complete Time: 22:44 sp4 EC:36 Rate is 73 beats/min. Rhythm is regular, Normal Sinus Rhythm. QRS [place] is Normal. [place] sp4 interval is normal. QRS interval is normal. QT interval is normal. T waves are Normal. No ST changes noted. Clinical impression: Normal ECG. Interpreted by me. Administered Medications: 23:14 Drug: Ibuprofen PO 800 mg Route: PO; 1 02/22 00:21 Follow up: Response: No adverse reaction; Pain is decreased 1 02/21 23:14 Drug: Acetaminophen PO 1000 mg Route: PO; 1 02/22 00:21 Follow up: Response: No adverse reaction; Pain is decreased ha1 Disposition Summary: 02/21/23 23:48 Discharge Ordered Location: Home sp4 Problem: new sp4 Symptoms: have improved sp4 Condition: Stable sp4 Diagnosis - Chest pain, unspecified sp4 - Nonexertional chest pain, noncardiac chest pain, chronic stimulant use, ADHD, autismsp4 Followup: sp4 - With: Private Physician - When: 7 - 10 days - Reason: Recheck today's complaints Discharge Instructions: - Discharge Summary Sheet sp4 - Chest Wall Pain, [id number] sp4 Forms: - Patient Portal Instructions sp4 Signatures: Dispatcher [employer] Farheen Gaffney RN RN ha1 Antonia Schaefer RN RN 1 Tyler Padilla MD MD sp4
--- NOTE | 2023-02-21 23:49 | ER ---
Nurse's Notes [facility] Name: Manjinder Arrieta Age: 17 yrs Sex: Male : 2005 Arrival Date: 02/21/2023 Time: 21:48 Bed 13 Private MD: Diagnosis: Chest pain, unspecified;Nonexertional chest pain, noncardiac chest pain, chronic stimulant use, ADHD, autism Presentation: 02/21 22:11 Chief complaint: Patient states: left side chest pain of 10 with left arm tingling pf1 sensation,onset 2000 tonight. Mother stated chest pain started while playing on his phone. 22:11 Coronavirus screen: Vaccine status: Patient reports receiving the 2nd dose of the covid pf1 vaccine. [employer] Client denies travel out of the [place] in the last 14 days. At this time, the client does not indicate any symptoms associated with coronavirus-19. Ebola Screen: Patient negative for fever greater than or equal to 101.5 degrees Fahrenheit, and additional compatible Ebola Virus Disease symptoms. Initial Sepsis Screen: Does the patient meet any 2 criteria? No. Patient's initial sepsis screen is negative. Does the patient have a suspected source of infection? No. Patient's initial sepsis screen is negative. Risk Assessment: Do you want to hurt yourself or someone else? Patient reports no desire to harm self or others. 22:11 Method Of Arrival: Wheelchair pf1 22:11 Acuity: YESSY 2 pf1 22:11 Onset of symptoms was February 21, 2023. ha1 Triage Assessment: 22:11 General: Appears comfortable, Behavior is calm, cooperative. Pain: Complains of pain in ha1 anterior aspect of left upper chest Pain does not radiate. Pain currently is 7 out of 10 on a pain scale. Neuro: Level of Consciousness is awake, alert, obeys commands, Oriented to person, place, time, situation. Cardiovascular: Patient's skin is warm and dry. Respiratory: Airway is patent Respiratory effort is even, unlabored, Respiratory pattern is regular, symmetrical. Musculoskeletal: Circulation, motion, and sensation intact. Historical: - Allergies: 22:28 Sulfa (Sulfonamide Antibiotics); pf1 22:28 Albuterol; pf1 22:28 Adhesives; pf1 22:28 adhesive tape; pf1 22:28 Clindamycin; pf1 22:28 Latex, Natural Rubber; pf1 22:28 [place] (Prunus Persica); pf1 22:28 PENICILLINS; pf1 22:28 Prednisone; pf1 22:28 montelukast; pf1 22:28 Suprax; pf1 22:28 cefixime; pf1 22:28 Vancomycin; pf1 - Immunization history:: Adult Immunizations up to date, Client reports receiving the 2nd dose of the Covid vaccine, Last tetanus immunization: < 5 years ago Flu vaccine is up to date. - Social history:: Smoking status: Patient denies any tobacco usage or history of. Patient/guardian denies using alcohol, street drugs. - Family history:: not pertinent. Screenin:11 [facility] ED Fall Risk Assessment (Adult) History of falling in the last 3 months, ha1 including since admission No falls in past 3 months (0 pts) Confusion or Disorientation No (0 pts) Intoxicated or Sedated No (0 pts) Impaired Gait No (0 pts) Mobility Assist Device Used No (0 pt) Altered Elimination No (0 pt) Score/Fall Risk Level 0 - 2 = Low Risk Oriented to surroundings, Maintained a safe environment, Educated pt \T\ family on fall prevention, incl call for assistance when getting out of bed. Abuse screen: Denies threats or abuse. Denies injuries from another. Nutritional screening: No deficits noted. Tuberculosis screening: No symptoms or risk factors identified. Assessment: 22:11 General: Appears comfortable, Behavior is calm, cooperative. Pain: Complains of pain in ha1 anterior aspect of left upper chest Pain does not radiate. Pain currently is 7 out of 10 on a pain scale. Quality of pain is described as pressure, Pain began suddenly. Neuro: Level of Consciousness is awake, alert, obeys commands, Oriented to person, place, time, situation. Cardiovascular: Heart tones S1 S2 present Patient's skin is warm and dry. Rhythm is sinus rhythm. Respiratory: Airway is patent Respiratory effort is even, unlabored, Respiratory pattern is regular, symmetrical. 23:05 Reassessment: Patient and/or family updated on plan of care and expected duration. Pain ha1 level reassessed. Patient is alert, oriented x 3, equal unlabored respirations, skin warm/dry/pink. 02/22 00:05 Reassessment: Patient and/or family updated on plan of care and expected duration. Pain ha1 level reassessed. Patient is alert, oriented x 3, equal unlabored respirations, skin warm/dry/pink. Patient states feeling better. Patient states symptoms have improved. Vital Signs: 02/21 22:11 BP 129 / 98; Pulse 81; Resp 18; Temp 98.2; Pulse Ox 97% on R/A; Weight 96.5 kg; Height pf1 5 ft. 8 in. ; Pain 10/10; 23:00 BP 122 / 81; Pulse 77; Resp 18 S; Pulse Ox 100% on R/A; ha1 02/22 00:00 BP 121 / 76; Pulse 74; Resp 18; Pulse Ox 99% on R/A; ha1 02/21 22:11 Body Mass Index 32.35 (96.50 kg, 172.72 cm) pf1 02/21 22:11 Pain Scale: Adult pf1 ED Course: 02/21 21:56 Patient arrived in ED. es 21:57 Tyler Padilla MD is Attending Physician. sp4 22:11 Patient maintains SpO2 saturation greater than 95% on room air. ha1 22:11 Arm band placed on right wrist. ha1 22:11 Client placed on continuous cardiac and pulse oximetry monitoring. NIBP monitoring ha1 applied. 22:11 Patient has correct armband on for positive identification. Placed in gown. Bed in low ha1 position. Call light in reach. Side rails up X 1. 22:19 Farheen Griffin, RN is Primary Nurse. ha1 22:25 Inserted saline lock: 22 gauge in left forearm, using aseptic technique. Blood ha1 collected. 22:28 Triage completed. pf1 22:44 Basic Metabolic Panel Sent. ha1 22:44 CBC with Diff Sent. ha1 22:44 LFT's Sent. ha1 22:44 Magnesium Sent. ha1 22:44 NT PRO-BNP Sent. ha1 22:44 PT-INR Sent. ha1 22:44 Troponin HS Sent. ha1 22:52 XRAY Chest (1 view) In Process Unspecified. EDMS 02/22 00:19 No provider procedures requiring assistance completed. IV discontinued, intact, ha1 bleeding controlled, No redness/swelling at site. Pressure dressing applied. 00:21 Provided Education on: follow ups. ha1 Administered Medications: 02/21 23:14 Drug: Ibuprofen PO 800 mg Route: PO; ha1 02/22 00:21 Follow up: Response: No adverse reaction; Pain is decreased ha1 02/21 23:14 Drug: Acetaminophen PO 1000 mg Route: PO; ha1 02/22 00:21 Follow up: Response: No adverse reaction; Pain is decreased ha1 Medication: 00:20 VIS not applicable for this client. ha1 Outcome: 02/21 23:48 Discharge ordered by . sp4 02/22 00:19 Discharged to home ambulatory, with family. ha1 Condition: stable Discharge instructions given to patient, family, Instructed on discharge instructions, follow up and referral plans. Demonstrated understanding of instructions, follow-up care. 00:22 Patient left the ED. ha1 Signatures: Dispatcher [employer] Taylor Gonzalez Heidy RN RN ha1 Antonia Schaefer RN RN pf1 Tyler Padilla MD MD sp4 Corrections: (The following items were deleted from the chart) 07:46 00:05 Reassessment: Patient and/or family updated on plan of care and expected ha1 duration. Pain level reassessed. Patient is alert, oriented x 3, equal unlabored respirations, skin warm/dry/pink. ha1
[2023-02-22 00:32] VITALS: TEMP 98.2
[2023-02-22 00:47] VITALS: BP 121/76; O2SAT 99
--- NOTE | 2023-02-22 12:37 | RAD REPORT ---
EXAM DESCRIPTION: RAD - Chest Single View - 02/21/2023 10:50 pm CLINICAL HISTORY: CHEST PAIN COMPARISON: 11/10/2022 FINDINGS: Single frontal radiograph view of the chest. Cardiomediastinal silhouette: Normal size and contour. Lungs: Low lung volumes. Leads overlie the chest. Linear bibasilar opacities. No pneumothorax or larg e effusion. Bones: No acute osseous abnormality. Upper abdomen: No abnormality identified. IMPRESSION: Linear bibasilar opacities may be related to low lung volumes and subsegmental atelectas is. Electronically signed by: Jay Guo 02/21/2023 11:08 PM CDT Due to temporary technical issues with the PACS/Fluency reporting system, reports are being signed by the in house radiologist without review as a courtesy to ensure prompt reporting. The interpreting r adiologist is fully responsible for the content of the report.
--- NOTE | 2023-02-22 13:00 | EKG ---
Test Date: 2023-02-21 Test Time: 22:16:01 Retail Visual Merchandiser: RV MEASUREMENT RESULTS: Intervals: Rate: 73 [place]: 186 QRSD: 78 QT: 356 QTc: 392 [place]: P: 21 [place]: 186 QRS: 57 T: 42 INTERPRETIVE STATEMENTS: Normal sinus rhythm Normal ECG Compared to ECG 06/09/2022 16:22:52 Sinus tachycardia no longer present Electronically Signed On 02-22-23 12:58:43 CDT by Dutch Chao
== END 2023-02-22 00:22 | disposition home or self-care (01) ==
LOC: ER 21:48
DX: R07.89 Other chest pain (principal); F15.20 Other stimulant dependence, uncomplicated; F90.9 Attention-deficit hyperactivity disorder, unspecified type; F84.0 Autistic disorder
CPT/HCPCS: 36415; 71045; 80048; 80076; 83735; 83880; 84484; 85025; 85610; 93005; 99284

== ENCOUNTER 2023-03-05 22:24 | Emergency (ER) | payer OTHER ==
--- OUTSIDE RECORDS SUMMARY | 2023-03-05 23:34 | XMS REPORT | Continuity of Care Document ---
:2005 Author Organization Formerly [facility] t Address [address] [place] [address]. [address] [place] [address] Care Team Providers Name Role Phone Nikita Karly Primary Care Physician YANCI MICHAEL Attending Clinician Unavailable YANCI MICHAEL Attending Clinician Unavailable CHERISE MAURICE Attending Clinician Unavailable CHERISE MAURICE Attending Clinician Unavailable JOSE CHRISTOPHER Attending Clinician Unavailable BARRIE MALHOTRA Attending Clinician Unavailable Doctor Unassigned, Mcclusky Attending Clinician Unavailable MIL PRIETO Attending Clinician Unavailable Mil Chase Attending Clinician Jose Christopher MD Attending Clinician Barrie Plascencia Attending Clinician Yanci Michael DO Attending Clinician Kang Mcfarland DOazra Attending Clinician Cem ADEN, Christiano Attending Clinician ARSALAN GRANT Attending Clinician Unavailable Arsalan Grant MD Attending Clinician Yamil Gandara MD Attending Clinician SACHIN CARVAJAL Attending Clinician Unavailable Alena MEDICARE SALES REPRESENTATIVE, Sachin T Attending Clinician HANNAH VENTURA Attending Clinician Unavailable Hannah Ventura MD Attending Clinician Po, [facility] Attending Clinician Unavailable Sarbjit Kee MD Attending Clinician SURY DSOUZA Attending Clinician Unavailable Sury Shirley S Attending Clinician CHRISTIANO PRIEST Attending Clinician Unavailable TYRON NUÑEZ Attending Clinician Unavailable Tyron Nuñez DO Attending Clinician Pankaj Garrett MD Attending Clinician PANKAJ GARRETT Attending Clinician Unavailable ANJALI WISDOM Attending Clinician Unavailable Anjali Wisdom PA-C Attending Clinician Wendy Anand Attending Clinician 1, [facility] [employer] Attending Clinician Unavailable Angel Mar, Fadumo Orozco Attending Clinician Delmar Esteban PT, Nano Attending Clinician Unavailable Beena Ramirez MD Attending Clinician BEENA RAMIREZ Attending Clinician Unavailable Colleen VARMA Attending Clinician Unavailable Colleen Maddox Attending Clinician [facility] Attending Clinician Unavailable Parrish Rosenberg MD Attending Clinician Sheng Vasquez MD Attending Clinician SHENG VASQUEZ Attending Clinician Unavailable ALY ANGEL Attending Clinician Unavailable ALY ANGEL Attending Clinician Unavailable Yong Strauss RN, Marry Attending Clinician Unavailable PITA MALHOTRA Attending Clinician Unavailable Pita Malhotra MD Attending Clinician Lary HARE, Jose Carlos Lozada Attending Clinician Unavailable RUBEN BELCHER Attending Clinician Unavailable Ruben Mcknight Attending Clinician HANK OSHEA Attending Clinician Unavailable SHELBY SANTIAGO Attending Clinician Unavailable YAMIL GANDARA Attending Clinician Unavailable Estefania VIRAMONTES MD, Steve Quinn Attending Clinician [phone] ROBERT GLORIA Attending Clinician Unavailable Robert Gloria MD Attending Clinician JUNIOR LEAHY Attending Clinician Unavailable MEGHAN ROSARIO Attending Clinician Unavailable Meghan Rosario MD Attending Clinician Junior Leahy MD Attending Clinician Felix Morelos MD Attending Clinician [phone] Zana Thompson MD Attending Clinician Nurse, Namrata Moyer Attending Clinician Unavailable CHERISE MAURICE Admitting Clinician Unavailable ARSALAN GRANT Admitting Clinician Unavailable HANNAH VENTURA Admitting Clinician Unavailable Hannah Ventura MD Admitting Clinician ADELAIDA MAIN Admitting Clinician Unavailable JOSE CHRISTOPHER Admitting Clinician Unavailable TYRON NUÑEZ Admitting Clinician Unavailable CHRISTIANO PRIEST Admitting Clinician Unavailable Colleen VARMA Admitting Clinician Unavailable ALY ANGEL Admitting Clinician Unavailable PITA MALHOTRA Admitting Clinician Unavailable RUBEN BELCHER Admitting Clinician Unavailable ROBERT GLORIA Admitting Clinician Unavailable MEGHAN ROSARIO Admitting Clinician Unavailable Payers Payer Name Policy Type Policy Number Effective Date Expiration Date S [place] [employer] [id number] 2022 KIDS 00:00:00 [facility] STAR KIDS [id number] 2022 00:00:00 Problems Condition Condition Condition Status Onset Resolution Last Treating Co mments Source Name Details Category Date Date Treatment Clinician Date Palpitatio Palpitatio Disease Active U nivers ns ns 7-13 ity of 00:00: [address] Branch Syncope Syncope Disease Active Univers and and 7-13 ity of collapse collapse 00:: [address] Branch Abnormal Abnormal Disease Active [facility] liver liver 04[facility] enzymes enzymes 00:00: t & Plan: Medic al [address] [place] [address] g of this note might be different [...] [facility] 25.0-29.9) 25.0-29.9) 00:00: t & Plan: [address] g of this note might be different from the original. Body mass index is 27.49 kg/m2. We discussed the importanc e of weight loss with a low carbohydr ate, high protein diet. Immunity Immunity Disease Active Last [facility] status status 04-10 [facility] [place] testing testing 00:00: t & Plan: Medic al [address] [place] [address] g of this note might be different from the original. All patients with chronic liver disease, regardles s of etiology, should be immunized to prevent hepatitis A and hepatitis B if they are not already immune. We will test for immunity to both viruses - vaccine recommend ations will follow. 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] issues resolve with above, do not start Utprqn24- 12-15 Hold zoloft; stop Buspar: possible tachycard [id number] 5 Restart Buspar 7.5 BID (Heart rate no better off it and anxiety worse) Trial reduction Risperida l to 1/2 of .25mg BID Trial Remeron 15mg HS Trial remeron 15mg [id number] 5 Raise Risperdal back to .25mg BID [...] Remeron 15mg Continue Lexapro 30mg Continue Kapvay [id number] Increase zoloft to 50mg after school Decrease lexapro to 20mg 016 Stop Lexapro 20 mg Increase Abilify to 10 mg daily Increase Buspar to 15 mg BID Increase Kapvay to 0.1-0.2 mg QHS 02/12/16 Start amantidin e 100mg BID Stop abilify 10mg04/29 Move Risperdal 0.25 mg dose up to give at [id number] 06-24-16 Increase Risperdas l to .5mg BID 7 Increase Amantadin e to 15ml BID (not done last time) Increase Risperdal to .75 BID Reduce abilify to 3in9-5-7 Amantidin e 150mg BID Increase Zoloft to [...] 3 days, then restart at 200 BID T8 Vyvanse 40 mg (trial) and d/c adderall [...] different from the original. 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 clumsy Other Other Disease Active Overview: Univer s problems problems - Formattin ity of related to related to 00:00: g of this [place] lifestyle lifestyle 00 note Medi cherie might be Branch different from the original. 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 Press Operator Utility Asthma Asthma Disease Active Overview: Univer s 01-18 Formattin ity of 00:00: g of this [place] 00 note Medical might be Branch different from the original. Mild persistan t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 Press Operator Utility Allergic Allergic Disease Active Overview: Un glen rhinitis rhinitis 01-18 Formattin ity of 00:00: g of this [place] 00 note Medical might be Branch different from the original. 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 Press Operator Utility Sleep Sleep Disease Active Overview: Univer s apnea apnea 10-13 Formattin ity of 00:00: g of this [place] 00 note Medical might be Branch different from the original. 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 Press Operator Utility Sinusitis, Sinusitis, Disease Active Overview : Univers chronic chronic 10-13 Formattin ity o f 00:00: g of this [place] 00 note Medical might be Branch different from the original. 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 Press Operator Utility Allergies, Adverse Reactions, Alerts Allergy Allergy Status Severity Reaction(s) Onset Inactive Treating Comm ents Source Name Type Date Date Clinician ADHESIVE Drug Active Rash Univers Class 5- ity of 00:00: [place] 00 Medical Branch Adhesive Propensi Active Rash ECG Univer s ty to 12-04 electrode ity of adverse 00:00: patches [place] reaction 00 with Medical s heart Branch monitor MONTEL[place] DRUG Active Other-Cmnt 2021-07 Univ ers AST INGREDI 1- ity of 00:00: Medical Branch [place] Propensi Active Other - See 2021-07 Aggressi v Univers ast ty to comments - e ity of adverse 00:00: [place] reaction 00 Medical s Branch VANCOMYC DRUG Active Low Rash Univers IN INGREDI 08-21 ity of 00:00: Medical Branch Vancomyc Propensi Active Rash Allergy Unive rs in ty to 08-21 Type: ity of adverse 00:00: ?Medicati [place] reaction 00 onCurrent Medic al s Treatment Branch & Notes: Can have vancomyci n, but needs to be run over 2 hours with benadryl. [place] [place] [facility]/redn ess to face and neck; run over 2 hours [place] Allergy Active [facility] 8[facility]17 [facility] 00:[facility]: Medical 00 Center [place] Drug Active Other [facility] ast Allergy 8-17 reaction( [facility] 00:00: s): Medical 00 [facility] /Barney Bailey on - did not tolerate ALBUTERO Allergy Active Low Palpitations 2020-[address] [facility] - [facility] 00:00: Medical 00 Center ALBUTERO DRUG Active Med Palpitations 2020-0 Un glen L INGREDI 08-18 ity of 00:00: [place] 00 Medical Branch Albutero Drug Active Palpitations 2020-[address] l Allergy 131 xopenex [facility]ukes 00:00: better Medical 00 Center [...] PREDNISO DRUG Active Rash Univers NE INGREDI 503 ity of 00:00: [place] 00 Medical Branch PREDNISO Allergy Active High Rash [facility] NE 4-20 [facility] 00:00: Medical 00 Center Predniso Drug Active Rash [facility] ne Allergy 4-20 [facility] 00:00: Medical 00 Center SULFA Allergy Active High Anaphylaxis [facility] (SULFONA 8- [facility] MIDE 00:00: Medical ANTIBIOT 00 Center [...] Active High Anaphylaxis Unive rs (SULFONA Class 8- ity of MIDE 00:00: [place] ANTIBIOT 00 Medical ICS) Branch Sulfa Propensi Active Anaphylaxis Informed U nivers (Sulfona ty to 8-28 by ity of mide adverse 00:00: parents [place] Antibiot reaction 00 Medica l ics) s to Branch drug Sulfa Drug Active Anaphylaxis Informed [facility] (Sulfona Allergy 828 by [facility]ukes mide 00:00: parents Medical Antibiot [...] St 0-18 [facility] 00:00: Medical 00 Center [place] Propensi Active Unknown - 2006-07 Unive rs ty to See comments 0-18 ity of adverse 00:00: [place] reaction 00 Medical s Branch PEACH DRUG Active Unknown-Cmnt 2006- Univ ers INGREDI 0-18 ity of 00:00: [place] 00 Medical Branch [place] Drug Active 2006- Other [facility] Allergy 0-18 reaction( [facility] 00:00: s): Medical 00 Unknown - Center See comments ADHESIVE Allergy Active 2007-[address] [facility] TAPE 7-10 [facility] 00:00: Medical 00 Center Adhesive Propensi Active Unknown - 2006-0 Uni vers Tape ty to See comments 7-10 ity of adverse 00:00: [place] reaction 00 Medical s Branch ADHESIVE DRUG Active Unknown-Cmnt 2006-0 Un glen TAPE 7-10 ity of 00:00: [place] 00 Medical Branch Adhesive Drug Active 2006-[address] Tape Allergy 7-10 reaction( [facility]ukes 00:00: s): Medical 00 Unknown - Center See comments PENICILL Allergy Active High Sob 2004-[address] [facility] INS 3-28 [facility] 00:00: Medical 00 [place] LATEX Allergy Active Low Rash 2004-[address] [facility] 3-28 [facility] 00:00: Medical 00 Center Penicill Drug Active Shortness Of [address] [facility] ins Allergy Breath 3-28 shock [facility] 00:00: Medical 00 [place] Latex Propensi Active 2004-0 Univers ty to [...] [place] 00 Medical Branch PENICILL Drug Active 2005-0 Univers INS Class 3-28 ity of 00:00: [place] 00 Medical Branch POLLEN DRUG Active 2004-0 Univers EXTRACTS INGREDI 3-28 ity of 00:00: [place] 00 Medical Branch Penicill Propensi Active 2004-0 Univer s ins ty to 3-28 ity of adverse 00:00: [place] reaction 00 Medical s Branch Latex Drug Active Rash 2005-[address] [facility] Allergy 3-28 [facility] 00:00: Medical 00 Center Penic[place] Drug Active Shortness Of 2004-[address] [facility] ins Allergy Breath 3-28 shock [facility] 00:00: Medical 00 Center Family History Family Member Diagnosis Comments Start Date Stop Date Source Natural father Depression [facility] Natural [facility] Natural mother Heart disease [facility] Natural mother Hypertension [facility] Social History Social Habit Start Date Stop Date Quantity Comments Source History SDOH [facility] Alcohol Comment Medical C enter Gender identity Universit y [facility] Sexual orientation Univer sity [facility] History SDOH [facility] Alcohol Std Drinks [facility] History SDOH [facility] Alcohol Binge Medical [address] [facility] History of Social 2023-01-18 2023-01-18 Univers ity of function 00:00:00 00:00:00 [facility] Exposure to 2022-12-10 2022-12-20 Not sure University SARS-CoV-2 (event) 00:00:00 15:07:00 [facility] Tobacco use and 2022-04-08 2022-04-08 Smokeless [facility] kes exposure 00:00:00 00:00:00 tobacco non-user [facility] Alcohol intake 2022-04-08 2022-04-[address] [facility] 00:00:00 00:00:00 non-drinker [facility] (finding) History SDOH 2022-04-08 2022-04-[address] [facility] Alcohol Frequency 00:00:00 00:00:00 [facility] Sex Assigned At 2005 [address] [facility] [address] Cristiane isras 00:00:00 00:00:00 [facility] Smoking Status Start Date Stop Date Source Never smoked tobacco [facility] Medications Ordered Filled Start Stop Current Ordering Indication Dosage Frequency Signature Comments Components Source Medication Medication Date Date Medication? Clinician (SIG) Name Name ketorolac 2022- No 30mg 30 mg, Unive rs (TORADOL) 03-03 Slow IV ity of injection 21:00: 20:11 Push, [place] 30 mg 00 :00 ONCE, 1 Medical dose, On Wed03/03/23 at 1600, THIERRY ceFAZolin 2022- No ONCE INTRA U nivers (ANCEF) 02-23 PROCEDURE, ity o f injection 14:08: 14:14 Starting [place] 25 :20 on [facility] 02/23/23 at Branch 0908, Until Wed02/23/23 at 0914, THIERRY, CV Intraproce dure ceFAZolin 2022- No ONCE INTRA U nivers (ANCEF) 02-23 PROCEDURE, ity o f injection 14:08: 14:14 Starting [place] as 25 :20 on [facility] 02/23/23 at Branch 0908, Until Wed02/23/23 at 0914, THIERRY, CV Intraproce dure lidocaine 2022- No ONCE INTRA U nivers 1% (PF) 02-23 PROCEDURE, ity o f (XYLOCAINE) 14:06: 14:14 [place] injection 04 :20 on [facility] 02/23/23 at Branch 0906, Until Wed02/23/23 at 0914, Routine, CV Intraproce dure lidocaine 2022- No ONCE INTRA U nivers 1% (PF) 02-23 PROCEDURE, ity o f (XYLOCAINE) 14:06: 14:14 Starting [place] injection 04 :20 on [facility] 02/23/23 at Branch 0906, Until Wed02/23/23 at 0914, Routine, CV Intraproce dure triamcinolo Yes Apply to Un glen ne 0.1% in 02-23 affected ity o f aquaphor 11:06: area(s). [place] ([address] ) ointment Branch ARIPiprazol Yes by [employer]ube[employer] s e (02-23 Intramuscu ity of [facility]) 11:06: lar route [place] as 300 mg sers 27 once every Me dical month. Branch cariprazine Yes 1{capsu Take 1 U nivers (VRAYLAR) 3 02-23 le} capsule by it y of mg Cap 11:06: mouth in [place] [address] the Medical morning Branch and 1 capsule in the evening. triamcinolo Yes Apply to Un glen ne 0.1% in 02-23 affected ity o f aquaphor 11:06: area(s). [place] ([address] ) ointment Branch ARIPiprazol Yes by Univer s e (ABILIFY 8-08 Intramuscu ity of [place]) 11:06: lar route [place] as 300 mg sers 27 once every Me dical month. Branch cariprazine 2022-0 Yes 1{capsu Take 1 U nivers (VRAYLAR) 3 8-08 le} capsule by it y of mg Cap 11:06: mouth in [place] [address] the Medical morning Branch and 1 capsule in the evening. triamcinolo 2022-0 Yes Apply to Un glen ne 0.1% in 8-08 affected ity o f aquaphor 11:06: area(s). [place] (COMPOUNDED 27 Medical ) ointment Branch ARIPiprazol 2022-0 Yes by Univer s e (ABILIFY 8-08 Intramuscu ity of [place]) 11:06: lar route [place] 300 mg sers 27 once every Me dical month. Branch cariprazine 2022-0 Yes 1{capsu Take 1 U nivers (VRAYLAR) 3 8-08 le} capsule by it y of mg Cap 11:06: mouth in [place] [address] the Medical morning Branch and 1 capsule in the evening. triamcinolo 2022-0 Yes Apply to Un glen ne 0.1% in 8-08 affected ity o f aquaphor 11:06: area(s). [place] (COMPOUNDED 27 Medical ) ointment Branch ARIPiprazol 2022-0 Yes by Univer s e (ABILIFY 8-08 Intramuscu ity of [place]) 11:06: lar route [place] 300 mg sers 27 once every Me dical month. Branch cariprazine 2022-0 Yes 1{capsu Take 1 U nivers (VRAYLAR) 3 8-08 le} capsule by it y of mg Cap 11:06: mouth in [place] [address] the Medical morning Branch and 1 capsule in the evening. triamcinolo 3-0 Yes Apply to Un glen ne 0.1% in 8-08 affected ity o f aquaphor 11:06: area(s). [place] (COMPOUNDED 27 Medical ) ointment Branch ARIPiprazol 2022-0 Yes by Univer s e (ABILIFY 8-08 Intramuscu ity of [place]) 11:06: lar route [place] 300 mg sers 27 once every Me dical month. Branch cariprazine 2022-0 Yes 1{capsu Take 1 U nivers (VRAYLAR) 3 8-08 le} capsule by it y of mg Cap 11:06: mouth in [place] [address] the Medical morning Branch and 1 capsule in the evening. triamcinolo 2022-0 Yes Apply to Un glen ne 0.1% in 8-08 affected ity o f aquaphor 11:06: area(s). [place] (COMPOUNDED 27 Medical ) ointment Branch ARIPiprazol 2022-0 Yes by [employer] s e (ABILIFY 8-08 Intramuscu ity of [facility]) 11:06: lar route [place] as 300 mg sers 27 once every Me dical month. Branch cariprazine 2022-0 Yes 1{capsu Take 1 U nivers (VRAYLAR) 3 8-08 le} capsule by it y of mg Cap 11:06: mouth in [place] [address] the Medical morning Branch and 1 capsule in the evening. triamcinolo 2022-0 Yes Apply to Un glen ne 0.1% in 8-08 affected ity o f aquaphor 11:06: area(s). [place] (COMPOUNDED 27 Medical ) ointment Branch ARIPiprazol 2022-0 Yes by [employer] s e (ABILIFY 8-08 Intramuscu ity of [facility]) 11:06: lar route [place] as 300 mg sers 27 once every Me dical month. Branch cariprazine 2022-0 Yes 1{capsu Take 1 U nivers (VRAYLAR) 3 8-08 le} capsule by it y of mg Cap 11:06: mouth in [place] [address] the Medical morning Branch and 1 capsule in the evening. triamcinolo 2022-0 Yes Apply to Un glen ne 0.1% in 8-08 affected ity o f aquaphor 11:06: area(s). [place] (COMPOUNDED 27 Medical ) ointment Branch ARIPiprazol 2022-0 Yes by [employer] s e (ABILIFY 8-08 Intramuscu ity of [facility]) 11:06: lar route [place] as 300 mg sers 27 once every Me dical month. Branch cariprazine 2022-0 Yes 1{capsu Take 1 U nivers (VRAYLAR) 3 8-08 le} capsule by it y of mg Cap 11:06: mouth in [place] [address] the Medical morning Branch and 1 capsule in the evening. triamcinolo 2022-0 Yes Apply to Un glen ne 0.1% in 8-08 affected ity o f aquaphor 11:06: area(s). [place] (COMPOUNDED 27 Medical ) ointment Branch ARIPiprazol 2022-0 Yes by Univer s e (ABILIFY 8 Intramuscu ity of [facility]) 11:06: lar route [place] as 300 mg sers 27 once every Me dical month. Branch cariprazine 2022-0 Yes 1{capsu Take 1 U nivers (VRAYLAR) 3 8-08 le} capsule by it y of mg Cap 11:06: mouth in [place] [address] the Medical morning Branch and 1 capsule in the evening. triamcinolo 2022-0 Yes Apply to Un glen ne 0.1% in 808 affected ity o f aquaphor 11:06: area(s). [place] (COMPOUNDED 27 Medical ) ointment Branch ARIPiprazol 2022-0 Yes by Univer s e (ABILIFY 8 Intramuscu ity of [facility]) 11:06: lar route [place] 300 mg sers 27 once every Me dical month. Branch cariprazine 2022-0 Yes 1{capsu Take 1 U nivers (VRAYLAR) 3 8-08 le} capsule by it y of mg Cap 11:06: mouth in [place] [address] the Medical morning Branch and 1 capsule in the evening. triamcinolo 2022-0 Yes Apply to Un glen ne 0.1% in 8-08 affected ity o f aquaphor 11:06: area(s). [place] (COMPOUNDED 27 Medical ) ointment Branch ARIPiprazol 2022-0 Yes by Univer s e (ABILIFY 8 Intramuscu ity of [facility]) 11:06: lar route [place] 300 mg sers 27 once every Me dical month. Branch cariprazine 2022-0 Yes 1{capsu Take 1 U nivers (VRAYLAR) 3 8-08 le} capsule by it y of mg Cap 11:06: mouth in [place] [address] the Medical morning Branch and 1 capsule in the evening. triamcinolo 2022-0 Yes Apply to Un glen ne 0.1% in 8-08 affected ity o f aquaphor 11:06: area(s). [place] [facility] ointment Branch ARIPiprazol 2022-0 Yes by Univer s e (ABILIFY 8-08 Intramuscu ity of [facility]) 11:06: lar route [place] as 300 mg sers 27 once every Me dical month. Branch cariprazine 2022-0 Yes 1{capsu Take 1 U nivers (VRAYLAR) 3 8-08 le} capsule by it y of mg Cap 11:06: mouth in [place] [address] the Medical morning Branch and 1 capsule in the evening. triamcinolo 2022-0 Yes Apply to Un glen ne 0.1% in 8-08 affected ity o f aquaphor 11:06: area(s). [place] ([address] ) ointment Branch ARIPiprazol 2022-0 Yes by [employer] s e (ABILIFY 8-08 Intramuscu ity of [place]) 11:06: lar route [place] as 300 mg sers 27 once every Me dical month. Branch cariprazine 2022-0 Yes 1{capsu Take 1 U nivers (VRAYLAR) 3 8-08 le} capsule by it y of mg Cap 11:06: mouth in [place] [address] the Medical morning Branch and 1 capsule in the evening. SUMAtriptan 2022-0 Yes [id number] 5mg Use 1 U nivers 5 8-08 [place] in ity of mg/actuatio 00:00: each [place] n nasal 00 nostril as Medica l spray needed for Branch headache symptoms. May repeat in 2 hours if needed. Max of 4 sprays per 24 hours SUMAtriptan 3-0 Yes [id number] 5mg Use 1 U nivers 5 8-08 [place] in ity of mg/actuatio 00:00: each [place] n nasal 00 nostril as Medica l spray needed for Branch headache symptoms. May repeat in 2 hours if needed. Max of 4 sprays per 24 hours SUMAtriptan 3-0 Yes [id number] 5mg Use 1 U nivers 5 8-08 [place] in ity of mg/actuatio 00:00: each [place] n nasal 00 nostril as Medica l spray needed for Branch headache symptoms. May repeat in 2 hours if needed. Max of 4 sprays per 24 hours SUMAtriptan 2022-0 Yes [id number] 5mg Use 1 U nivers 5 8-08 [place] in ity of mg/actuatio 00:00: each [place] n nasal 00 nostril as Medica l spray needed for Branch headache symptoms. May repeat in 2 hours if needed. Max of 4 sprays per 24 hours SUMAtriptan 2022-0 Yes [id number] 5mg Use 1 [facility]ivers 5 8-08 [place] in ity of mg/actuatio 00:00: each [place] n nasal 00 nostril as Medica l spray needed for Branch headache symptoms. May repeat in 2 hours if needed. Max of 4 sprays per 24 hours SUMAtriptan 2022-0 Yes [id number] 5mg Use 1 U nivers 5 8-08 [place] in ity of mg/actuatio 00:00: each [place] n nasal 00 nostril as Medica l spray needed for Branch headache symptoms. May repeat in 2 hours if needed. Max of 4 sprays per 24 hours SUMAtriptan 2022-0 Yes [id number] 5mg Use 1 [facility]ivers 5 8-08 [place] in ity of mg/actuatio 00:00: each [place] n nasal 00 nostril as Medica l spray needed for Branch headache symptoms. May repeat in 2 hours if needed. Max of 4 sprays per 24 hours SUMAtriptan 2022-0 Yes [id number] 5mg Use 1 [facility]ivers 5 8-08 [place] in ity of mg/actuatio 00:00: each [place] n nasal 00 nostril as Medica l spray needed for Branch headache symptoms. May repeat in 2 hours if needed. Max of 4 sprays per 24 hours doxycycline 2022-0 2022- Yes [id number] 100mg Take 1 [facility] hyclate 100 02-23 capsule by i ty of mg capsule 00:00: 04:59 mouth [place] 00 :00 every 12 Medical (twelve) Branch hours for 5 days. doxycycline 2022-0 2022- Yes [id number] 100mg Take 1 [facility] hyclate 100 8-08 08-14 capsule by i ty of mg capsule 00:00: 04:59 mouth [place] 00 :00 every 12 Medical (twelve) Branch hours for 5 days. doxycycline 2022- Yes [id number] 100mg Take 1 [facility] hyclate 100 02-23 capsule by i ty of mg capsule 00:00: 04:59 mouth [place] 00 :00 every 12 Medical (twelve) Branch hours for 5 days. IMITREX 5 2022- No as needed [place] MG/ACTUATIO 02-22- for ity of N NASAL 10:35: 00:[place] :00 [place] Branch IMITREX 5 2022- No as needed [place] MG/ACTUATIO 02-22 for ity of N NASAL 10:35: 00:[place] :00 Medical Branch IMITREX 5 2022- No as needed [place] MG/ACTUATIO 02-22 for ity of N NASAL 10:35: 00:[place] SPR[place] :00 Medical Branch levalbutero Yes [id number] 2{puff} Inhale 2 Univers l (XOPENEX 8-07 Puffs ity of HFA) 45 00:00: every 6 [place] mcg/actuati 00 (six) Medical on inhaler hours as Branc h needed for Wheezing. INHALE 2 PUFFS BY MOUTH EVERY 6 HOURS NEEDED BEFORE EXERCISE OR FOR WHEEZING/S HORTNESS OF BREATH. levalbutero Yes [id number] 2{puff} Inhale 2 [facility] l (XOPENEX 8-07 Puffs ity of HFA) 45 00:00: every 6 [place] mcg/actuati 00 (six) Medical on inhaler hours as Branc h needed for Wheezing. INHALE 2 PUFFS BY MOUTH EVERY 6 HOURS NEEDED BEFORE EXERCISE OR FOR WHEEZING/S HORTNESS OF BREATH. levalbutero Yes [id number] 2{puff} Inhale 2 [facility] l (XOPENEX 8-07 Puffs ity of HFA) 45 00:00: every 6 [place] mcg/actuati 00 (six) Medical on inhaler hours as Branc h needed for Wheezing. INHALE 2 PUFFS BY MOUTH EVERY 6 HOURS NEEDED BEFORE EXERCISE OR FOR WHEEZING/S HORTNESS OF BREATH. SUMAtriptan Yes [id number] 1 spray in [facility] 5 8-07 each ity of mg/actuatio 00:00: nostril as [place] n nasal 00 needed for Medica l spray migraine. Branch If symptoms persist or return, may repeat dose after =1 hour. Do not exceed 4 sprays total in any 24-hour period. levalbutero Yes [id number] 2{puff} Inhale 2 [facility] l (XOPENEX 8-07 Puffs ity of HFA) 45 00:00: every 6 [place] mcg/actuati 00 (six) Medical on inhaler hours as Branc h needed for Wheezing. INHALE 2 PUFFS BY MOUTH EVERY 6 HOURS NEEDED BEFORE EXERCISE OR FOR WHEEZING/S HORTNESS OF BREATH. levalbutero Yes [id number] 2{puff} Inhale 2 [facility] l (XOPENEX 8-07 Puffs ity of HFA) 45 00:00: every 6 [place] mcg/actuati 00 (six) Medical on inhaler hours as Branc h needed for Wheezing. INHALE 2 PUFFS BY MOUTH EVERY 6 HOURS NEEDED BEFORE EXERCISE OR FOR WHEEZING/S HORTNESS OF BREATH. levalbutero Yes [id number] 2{puff} Inhale 2 [facility] l (XOPENEX 8-07 Puffs ity of HFA) 45 00:00: every 6 [place] mcg/actuati 00 (six) Medical on inhaler hours as Branc h needed for Wheezing. INHALE 2 PUFFS BY MOUTH EVERY 6 HOURS NEEDED BEFORE EXERCISE OR FOR WHEEZING/S HORTNESS OF BREATH. levalbutero Yes [id number] 2{puff} Inhale 2 [facility] l (XOPENEX 8-07 Puffs ity of HFA) 45 00:00: every 6 [place] mcg/actuati 00 (six) Medical on inhaler hours as Branc h needed for Wheezing. INHALE 2 PUFFS BY MOUTH EVERY 6 HOURS NEEDED BEFORE EXERCISE OR FOR WHEEZING/S HORTNESS OF BREATH. levalbutero Yes [id number] 2{puff} Inhale 2 [facility] l (XOPENEX 8-07 Puffs ity of HFA) 45 00:00: every 6 [place] mcg/actuati 00 (six) Medical on inhaler hours as Branc h needed for Wheezing. INHALE 2 PUFFS BY MOUTH EVERY 6 HOURS NEEDED BEFORE EXERCISE OR FOR WHEEZING/S HORTNESS OF BREATH. levalbutero 0 Yes [id number] 2{puff} Inhale 2 [facility] l (XOPENEX 8-07 Puffs ity of HFA) 45 00:00: every 6 [place] mcg/actuati 00 (six) Medical on inhaler hours as Branc h needed for Wheezing. INHALE 2 PUFFS BY MOUTH EVERY 6 HOURS NEEDED BEFORE EXERCISE OR FOR WHEEZING/S HORTNESS OF BREATH. levalbutero 0 Yes [id number] 2{puff} Inhale 2 [facility] l (XOPENEX 8-07 Puffs ity of HFA) 45 00:00: every 6 [place] mcg/actuati 00 (six) Medical on inhaler hours as Branc h needed for Wheezing. INHALE 2 PUFFS BY MOUTH EVERY 6 HOURS NEEDED BEFORE EXERCISE OR FOR WHEEZING/S HORTNESS OF BREATH. levalbutero 0 Yes [id number] 2{puff} Inhale 2 [facility] l (XOPENEX 8-07 Puffs ity of HFA) 45 00:00: every 6 [place] mcg/actuati 00 (six) Medical on inhaler hours as Branc h needed for Wheezing. INHALE 2 PUFFS BY MOUTH EVERY 6 HOURS NEEDED BEFORE EXERCISE OR FOR WHEEZING/S HORTNESS OF BREATH. SUMAtriptan 2022- No [id number] 1 spray in [facility] 5 02-22 08-07 each ity of mg/actuatio 00:00: 00:00 nostril as [place] n nasal 00 :00 needed for Medica l spray migraine. Branch If symptoms persist or return, may repeat dose after =1 hour. Do not exceed 4 sprays total in any 24-hour period. NaCl 0.9% 2022- No 1000mL at 999 Uni vers (NS) bolus 02-01 07-17 mL/hr, ity of infusion 06:45: 06:49 1,000 mL, [place] 1,000 mL 00 :00 IV Medical Piggyback, Branch ONCE, 1 dose, On 02/01/23 at 0145, STAT iopamidol 2022- No [id number] 70mL 70 mL, U n[facility] (ISOVUE 02-01 Intravenou ity o f 370-500 mL) 06:45: 05:47 s, ONCE, 1 [place] injection 00 :00 dose, On Medica l 70 mL Mon [place] 02/01/23 at 0145, Routine IMITREX 5 Yes as needed Uni vers MG/ACTUATIO 01-28 for ity of N NASAL 15:08: migraines [address] Yes Apply to [place] ne 0.1% in 01-28 affected ity o f aquaphor 15:08: area(s). [place] (COMPOUNDED 59 Medical ) ointment Branch ARIPiprazol Yes by [email or web address] s e (ABILIFY 01-28 Intramuscu ity of [facility]) 15:08: lar route [place] 300 mg sers 59 once every Me dical month. Branch cariprazine Yes 1{capsu Take 1 U n[facility] (VRAYLAR) 3 7- le} capsule by it y of mg Cap 15:08: mouth in [place] [address] the Medical morning Branch and 1 capsule in the evening. IMITREX 5 Yes as needed [facility] MG/ACTUATIO 01-28 for ity of N NASAL 15:08: migraines [address] Yes Apply to [place] ne 0.1% in 01-28 affected ity o f aquaphor 15:08: area(s). [place] (COMPOUNDED 59 Medical ) ointment Branch ARIPiprazol Yes by Univer s e (ABILIFY 7 Intramuscu ity of [employer]) 15:08: lar route [place] 300 mg sers 59 once every Me dical month. Branch cariprazine Yes 1{capsu Take 1 U nivers (VRAYLAR) 3 7-13 le} capsule by it y of mg Cap 15:08: mouth in [place] 59 the Medical morning Branch and 1 capsule in the evening. IMITREX 5 2023-0 Yes as needed [facility] vers MG/ACTUATIO 7-13 for ity of N NASAL 15:08: migraines [place] SPRY 59 Medical Branch pending sale to [facility] Yes Apply to [place] ne 0.1% in 7-13 affected ity o f aquaphor 15:08: area(s). [place] (COMPOUNDED 59 Medical ) ointment Branch ARIPiprazol Yes by Univer s e (ABILIFY 7 Intramuscu ity of [employer]) 15:08: lar route [place] 300 mg sers 59 once every Me dical month. Branch cariprazine Yes 1{capsu Take 1 U nivers (VRAYLAR) 3 7-13 le} capsule by it y of mg Cap 15:08: mouth in [place] [address] the Medical morning Branch and 1 capsule in the evening. IMITREX 5 2022-0 Yes as needed Uni vers MG/ACTUATIO 7-13 for ity of N NASAL 15:08: migraines [facility] 59 Medical Branch pending sale to [facility] Yes Apply to [place] 0.1% in 01-28 affected ity o f aquaphor 15:08: area(s). [place] (COMPOUNDED 59 Medical ) ointment Branch ARIPiprazol Yes by Univer s e (ABILIFY 01-28 [facility]) 15:08: lar route [place] 300 mg sers 59 once every Me dical month. Branch cariprazine Yes 1{capsu Take 1 U nivers (VRAYLAR) 3 7-13 le} capsule by it y of mg Cap 15:08: mouth in [place] [address] the Medical morning Branch and 1 capsule in the evening. IMITREX 5 2022-0 Yes as needed Uni vers MG/ACTUATIO 7-13 for ity of N NASAL 15:08: [facility] Yes Apply to [place] ne 0.1% in 7-13 affected ity o f aquaphor 15:08: area(s). [place] (COMPOUNDED 59 Medical ) ointment Branch ARIPiprazol Yes by Univer s e (ABILIFY 7 [facility]) 15:08: lar route [place] 300 mg sers 59 once every Me dical month. Branch cariprazine Yes 1{capsu Take 1 U nivers (VRAYLAR) 3 7-13 le} capsule by it y of mg Cap 15:08: mouth in [place] 59 the Medical morning Branch and 1 capsule in the evening. IMITREX 5 0 Yes as needed Uni vers MG/ACTUATIO 7-13 for ity of N NASAL 15:08: migraines [place] SPRY 59 Medical Branch pending sale to [facility] Yes Apply to [place] 0.1% in 713 affected ity o f aquaphor 15:08: area(s). [place] (COMPOUNDED 59 Medical ) ointment Branch ARIPiprazol Yes by Univer s e (ABILIFY 7 Intramuscu ity of [facility]) 15:08: lar route [place] 300 mg sers 59 once every Me dical month. Branch cariprazine Yes 1{capsu Take 1 U nivers (VRAYLAR) 3 7 le} capsule by it y of mg Cap 15:08: mouth in [place] 59 the Medical morning Branch and 1 capsule in the evening. IMITREX 5 0 Yes as needed Uni vers MG/ACTUATIO 7 for ity of N NASAL 15:08: migraines [place] SPRY 59 Medical [facility] Yes Apply to [place] ne 0.1% in 01-28 affected ity o f aquaphor 15:08: area(s). [place] (COMPOUNDED 59 Medical ) ointment Branch ARIPiprazol Yes by Univer s e (ABILIFY 7 [facility]) 15:08: lar route [place] 300 mg sers 59 once every Me dical month. Branch cariprazine Yes 1{capsu Take 1 U nivers (VRAYLAR) 3 7-13 le} capsule by it y of mg Cap 15:08: mouth in [place] 59 the Medical morning Branch and 1 capsule in the evening. IMITREX 5 0 Yes as needed Uni vers MG/ACTUATIO 7-13 for ity of N NASAL 15:08: migraines [place] SPRY 59 Medical Branch pending sale to [facility] Yes Apply to [place] 0.1% in 7-13 affected ity o f aquaphor 15:08: area(s). [place] (COMPOUNDED 59 Medical ) ointment Branch ARIPiprazol Yes by Univer s e (ABILIFY 7-13 Intramuscu ity of [employer]) 15:08: lar route [place] 300 mg sers 59 once every Me dical month. Branch cariprazine Yes 1{capsu Take 1 U nivers (VRAYLAR) 3 7-13 le} capsule by it y of mg Cap 15:08: mouth in [place] 59 the Medical morning Branch and 1 capsule in the evening. IMITREX 5 2022-0 Yes as needed Uni vers MG/ACTUATIO 7-13 for ity of N NASAL 15:08: [facility] Branch [facility] Yes Apply to [place] 0.1% in 7-13 affected ity o f aquaphor 15:08: area(s). [place] (COMPOUNDED 59 Medical ) ointment Branch ARIPiprazol Yes by Univer s e (ABILIFY 7- Intramuscu ity of [employer]) 15:08: lar route [place] 300 mg sers 59 once every Me dical month. Branch cariprazine Yes 1{capsu Take 1 U nivers (VRAYLAR) 3 7-13 le} capsule by it y of mg Cap 15:08: mouth in [place] [address] the Medical morning Branch and 1 capsule in the evening. IMITREX 5 2022-0 Yes as needed Uni vers MG/ACTUATIO 7-13 for ity of N NASAL 15:08: migraines [place] SPRY 59 Medical Branch pending sale to [facility] Yes Apply to [place] 0.1% in 7-13 affected ity o f aquaphor 15:08: area(s). [place] (COMPOUNDED 59 Medical ) ointment Branch ARIPiprazol Yes by Univer s e (ABILIFY 7-13 Intramuscu ity of [employer]) 15:08: lar route [place] 300 mg sers 59 once every Me dical month. Branch cariprazine Yes 1{capsu Take 1 U nivers (VRAYLAR) 3 7-13 le} capsule by it y of mg Cap 15:08: mouth in [place] 59 the Medical morning Branch and 1 capsule in the evening. IMITREX 5 0 Yes as needed Uni vers MG/ACTUATIO 7-13 for ity of N NASAL 15:08: migraines [place] SPRY Medical [facility] Yes Apply to [place] 0.1% in 7-13 affected ity o f aquaphor 15:08: area(s). [place] (COMPOUNDED 59 Medical ) ointment Branch ARIPiprazol Yes by [employer] s e (ABILIFY 7 Intramuscu ity of [facility]) 15:08: lar route [place] 300 mg sers 59 once every Me dical month. Branch cariprazine Yes 1{capsu Take 1 U nivers (VRAYLAR) 3 7-13 le} capsule by it y of mg Cap 15:08: mouth in [place] [address] the Medical morning Branch and 1 capsule in the evening. IMITREX 5 0 Yes as needed Uni vers MG/ACTUATIO 7-13 for ity of N NASAL 15:08: migraines [address] Yes Apply to [place] 0.1% in 713 affected ity o f aquaphor 15:08: area(s). [place] (COMPOUNDED 59 Medical ) ointment Branch ARIPiprazol Yes by Univer s e (ABILIFY 713 Intramuscu ity of [facility]) 15:08: lar route [place] 300 mg sers 59 once every Me dical month. Branch cariprazine Yes 1{capsu Take 1 U nivers (VRAYLAR) 3 7-13 le} capsule by it y of mg Cap 15:08: mouth in [place] 59 the Medical morning Branch and 1 capsule in the evening. IMITREX 5 0 Yes as needed Uni vers MG/ACTUATIO 7-13 for ity of N NASAL 15:08: migraines [place] [address] Medical Branch pending sale to [facility] Yes Apply to [place] 0.1% in 7-13 affected ity o f aquaphor 15:08: area(s). [place] (COMPOUNDED 59 Medical ) ointment Branch ARIPiprazol Yes by Univer s e (ABILIFY 7-13 Intramuscu ity of [employer]) 15:08: lar route [place] 300 mg sers 59 once every Me dical month. Branch cariprazine Yes 1{capsu Take 1 U nivers (VRAYLAR) 3 7-13 le} capsule by it y of mg Cap 15:08: mouth in [place] 59 the Medical morning Branch and 1 capsule in the evening. IMITREX 5 0 Yes as needed Uni vers MG/ACTUATIO 7-13 for ity of N NASAL 15:08: migraines [place] [address] Medical Branch pending sale to [facility] Yes Apply to [place] 0.1% in 7-13 affected ity o f aquaphor 15:08: area(s). [place] (COMPOUNDED 59 Medical ) ointment Branch ARIPiprazol Yes by Univer s e (ABILIFY 7- Intramuscu ity of [employer]) 15:08: lar route [place] 300 mg sers 59 once every Me dical month. Branch cariprazine Yes 1{capsu Take 1 U nivers (VRAYLAR) 3 7-13 le} capsule by it y of mg Cap 15:08: mouth in [place] [address] the Medical morning Branch and 1 capsule in the evening. IMITREX 5 2022-0 Yes as needed Uni vers MG/ACTUATIO 7-13 for ity of N NASAL 15:08: migraines [place] [address] Medical Branch pending sale to [facility] Yes Apply to [place] 0.1% in 7-13 affected ity o f aquaphor 15:08: area(s). [place] (COMPOUNDED 59 Medical ) ointment Branch ARIPiprazol Yes by Univer s e (ABILIFY 7-13 Intramuscu ity of [employer]) 15:08: lar route [place] 300 mg sers 59 once every Me dical month. Branch cariprazine Yes 1{capsu Take 1 U nivers (VRAYLAR) 3 7- le} capsule by it y of mg Cap 15:08: mouth in [place] 59 the Medical morning Branch and 1 capsule in the evening. IMITREX 5 Yes as needed Uni vers MG/ACTUATIO 01-28 for ity of N NASAL 15:08: migraines [place] SPRY 59 Medical Branch triamcinolo Yes Apply to [place] 0.1% in 01-28 affected ity o f aquaphor 15:08: area(s). [place] (COMPOUNDED 59 Medical ) ointment Branch ARIPiprazol Yes by Univer s e (ABILIFY 01-28 Intramuscu ity of [employer]) 15:08: lar route [place] 300 mg sers 59 once every Me dical month. Branch cariprazine Yes 1{capsu Take 1 U nivers (VRAYLAR) 3 01-28 le} capsule by it y of mg Cap 15:08: mouth in [place] 59 the Medical morning Branch and 1 capsule in the evening. triamcinolo Yes Apply to [place] 0.1% in 01-28 affected ity o f aquaphor 15:08: area(s). [place] (COMPOUNDED 59 Medical ) ointment Branch ARIPiprazol Yes by Univer s e (ABILIFY 01-28 Intramuscu ity of [employer]) 15:08: lar route [place] 300 mg sers 59 once every Me dical month. Branch cariprazine Yes 1{capsu Take 1 U nivers (VRAYLAR) 3 7-13 le} capsule by it y of mg Cap 15:08: mouth in [place] 59 the Medical morning Branch and 1 capsule in the evening. triamcinolo Yes Apply to [place] 0.1% in 13 affected ity o f aquaphor 15:08: area(s). [place] (COMPOUNDED 59 Medical ) ointment Branch ARIPiprazol Yes by Univer s e (ABILIFY 01-28 Intramuscu ity of [employer]) 15:08: lar route [place] 300 mg sers 59 once every Me dical month. Branch cariprazine Yes 1{capsu Take 1 U nivers (VRAYLAR) 3 01-28 le} capsule by it y of mg Cap 15:08: mouth in [place] 59 the Medical morning Branch and 1 capsule in the evening. triamcinolo Yes Apply to [place] 0.1% in 01-28 affected ity o f aquaphor 15:08: area(s). [place] (COMPOUNDED 59 Medical ) ointment Branch ARIPiprazol Yes by [facility] s e (ABILIFY 01-28 Intramuscu ity of [facility]) 15:08: lar route [place] 300 mg sers 59 once every Me dical month. Branch cariprazine Yes 1{capsu Take 1 U nivers (VRAYLAR) 3 01-28 le} capsule by it y of mg Cap 15:08: mouth in [place] 59 the Medical morning Branch and 1 capsule in the evening. levETIRAcet 0 Yes [id number] 1000mg Take 10 mL Univers am (KEPPRA) 7-13 by mouth ity of 100 mg/mL 00:00: in the [place] oral 00 morning Medical solution and 10 mL Branch in the evening. levETIRAcet 2022-0 Yes [id number] 1000mg Take 10 mL Univers am (KEPPRA) 7-13 by mouth ity of 100 mg/mL 00:00: in the [place] oral 00 morning Medical solution and 10 mL Branch in the evening. metoprolol 2022-0 Yes [id number] 25mg Take 1 U [facility]ivers succinate 7-13 tablet by ity o f XL 25 mg 24 00:00: mouth in [place] hr tablet 00 the Medical morning. Branch levETIRAcet 2022-0 Yes [id number] 1000mg Take 10 mL Univers am (KEPPRA) 7-13 by mouth ity of 100 mg/mL 00:00: in the [place] oral 00 morning Medical solution and 10 mL Branch in the evening. metoprolol 2022-0 Yes [id number] 25mg Take 1 U [facility]ivers succinate 7-13 tablet by ity o f XL 25 mg 24 00:00: mouth in [place] hr tablet 00 the Medical morning. Branch levETIRAcet 3-0 Yes [id number] 1000mg Take 10 mL Univers am (KEPPRA) 7-13 by mouth ity of 100 mg/mL 00:00: in the [place] oral 00 morning Medical solution and 10 mL Branch in the evening. metoprolol 3-0 Yes [id number] 25mg Take 1 U nivers succinate 7-13 tablet by ity o f XL 25 mg 24 00:00: mouth in [place] hr tablet 00 the Medical morning. Branch levETIRAcet 3-0 Yes [id number] 1000mg Take 10 mL Univers am (KEPPRA) 7-13 by mouth ity of 100 mg/mL 00:00: in the [place] oral 00 morning Medical solution and 10 mL Branch in the evening. metoprolol 3-0 Yes [id number] 25mg Take 1 U nivers succinate 7-13 tablet by ity o f XL 25 mg 24 00:00: mouth in [place] hr tablet 00 the Medical morning. Branch levETIRAcet 3-0 Yes [id number] 1000mg Take 10 mL Univers am (KEPPRA) 7-13 by mouth ity of 100 mg/mL 00:00: in the [place] oral morning Medical solution and 10 mL Branch in the evening. metoprolol 3-0 Yes [id number] 25mg Take 1 U nivers succinate 7-13 tablet by ity o f XL 25 mg 24 00:00: mouth in [place] hr tablet 00 the Medical morning. Branch levETIRAcet 3-0 Yes [id number] 1000mg Take 10 mL [facility] am (KEPPRA) 7-13 by mouth ity of 100 mg/mL 00:00: in the [place] oral 00 morning Medical solution and 10 mL Branch in the evening. metoprolol 3-0 Yes [id number] 25mg Take 1 U nivers succinate 7-13 tablet by ity o f XL 25 mg 24 00:00: mouth in [place] hr tablet 00 the Medical morning. Branch levETIRAcet 3-0 Yes [id number] 1000mg Take 10 mL Univers am (KEPPRA) 7-13 by mouth ity of 100 mg/mL 00:00: in the [place] oral 00 morning Medical solution and 10 mL Branch in the evening. metoprolol 3-0 Yes [id number] 25mg Take 1 U nivers succinate 7-13 tablet by ity o f XL 25 mg 24 00:00: mouth in [place] hr tablet 00 the Medical morning. Branch levETIRAcet 2022-0 Yes [id number] 1000mg Take 10 mL [facility] am (KEPPRA) 7-13 by mouth ity of 100 mg/mL 00:00: in the [place] oral 00 morning Medical solution and 10 mL Branch in the evening. metoprolol 2022-0 Yes [id number] 25mg Take 1 U nivers succinate 7-13 tablet by ity o f XL 25 mg 24 00:00: mouth in [place] hr tablet 00 the Medical morning. Branch levETIRAcet 2022-0 Yes [id number] 1000mg Take 10 mL [facility] am (KEPPRA) 7-13 by mouth ity of 100 mg/mL 00:00: in the [place] oral 00 morning Medical solution and 10 mL Branch in the evening. metoprolol 2022-0 Yes [id number] 25mg Take 1 U nivers succinate 7-13 tablet by ity o f XL 25 mg 24 00:00: mouth in [place] hr tablet 00 the Medical morning. Branch levETIRAcet 2022-0 Yes [id number] 1000mg Take 10 mL Univers am (KEPPRA) 7-13 by mouth ity of 100 mg/mL 00:00: in the [place] oral 00 morning Medical solution and 10 mL Branch in the evening. metoprolol 2022-0 Yes [id number] 25mg Take 1 U nivers succinate 7-13 tablet by ity o f XL 25 mg 24 00:00: mouth in [place] hr tablet 00 the Medical morning. Branch levETIRAcet 2022-0 Yes [id number] 1000mg Take 10 mL Univers am (KEPPRA) 7-13 by mouth ity of 100 mg/mL 00:00: in the [place] oral 00 morning Medical solution and 10 mL Branch in the evening. metoprolol 2022-0 Yes [id number] 25mg Take 1 U nivers succinate 7-13 tablet by ity o f XL 25 mg 24 00:00: mouth in [place] hr tablet 00 the Medical morning. Branch levETIRAcet 3-0 Yes [id number] 1000mg Take 10 mL Univers am (KEPPRA) 7-13 by mouth ity of 100 mg/mL 00:00: in the [place] oral 00 morning Medical solution and 10 mL Branch in the evening. metoprolol 3-0 Yes [id number] 25mg Take 1 U nivers succinate 7-13 tablet by ity o f XL 25 mg 24 00:00: mouth in [place] hr tablet 00 the Medical morning. Branch levETIRAcet 3-0 Yes [id number] 1000mg Take 10 mL [facility] am (KEPPRA) 7-13 by mouth ity of 100 mg/mL 00:00: in the [place] oral 00 morning Medical solution and 10 mL Branch in the evening. metoprolol 3-0 Yes [id number] 25mg Take 1 U nivers succinate 7-13 tablet by ity o f XL 25 mg 24 00:00: mouth in [place] hr tablet 00 the Medical morning. Branch levETIRAcet 3-0 Yes [id number] 1000mg Take 10 mL [facility] am (KEPPRA) 7-13 by mouth ity of 100 mg/mL 00:00: in the [place] oral 00 morning Medical solution and 10 mL Branch in the evening. metoprolol 2022-0 Yes [id number] 25mg Take 1 U nivers succinate 7-13 tablet by ity o f XL 25 mg 24 00:00: mouth in [place] hr tablet 00 the Medical morning. Branch levETIRAcet 3-0 Yes [id number] 1000mg Take 10 mL [facility] am (KEPPRA) 7-13 by mouth ity of 100 mg/mL 00:00: in the [place] oral 00 morning Medical solution and 10 mL Branch in the evening. metoprolol 3-0 Yes [id number] 25mg Take 1 U nivers succinate 7-13 tablet by ity o f XL 25 mg 24 00:00: mouth in [place] hr tablet 00 the Medical morning. Branch levETIRAcet 3-0 Yes [id number] 1000mg Take 10 mL [facility] am (KEPPRA) 7-13 by mouth ity of 100 mg/mL 00:00: in the [place] oral 00 morning Medical solution and 10 mL Branch in the evening. metoprolol 3-0 Yes [id number] 25mg Take 1 U nivers succinate 7-13 tablet by ity o f XL 25 mg 24 00:00: mouth in [place] hr tablet 00 the Medical morning. Branch levETIRAcet 3-0 Yes [id number] 1000mg Take 10 mL [facility] am (KEPPRA) 7-13 by mouth ity of 100 mg/mL 00:00: in the [place] oral 00 morning Medical solution and 10 mL Branch in the evening. metoprolol 3-0 Yes [id number] 25mg Take 1 U nivers succinate 7-13 tablet by ity o f XL 25 mg 24 00:00: mouth in [place] hr tablet 00 the Medical morning. Branch levETIRAcet 2022-0 Yes [id number] 1000mg Take 10 mL [facility] am (KEPPRA) 7-13 by mouth ity of 100 mg/mL 00:00: in the [place] oral 00 morning Medical solution and 10 mL Branch in the evening. metoprolol 3-0 Yes [id number] 25mg Take 1 U nivers succinate 7-13 tablet by ity o f XL 25 mg 24 00:00: mouth in [place] hr tablet 00 the Medical morning. Branch levETIRAcet 2022-0 Yes [id number] 1000mg Take 10 mL [facility] am (KEPPRA) 7-13 by mouth ity of 100 mg/mL 00:00: in the [place] oral morning Medical solution and 10 mL Branch in the evening. metoprolol 3-0 Yes [id number] 25mg Take 1 U nivers succinate 7-13 tablet by ity o f XL 25 mg 24 00:00: mouth in [place] hr tablet 00 the Medical morning. Branch levETIRAcet 3-0 Yes [id number] 1000mg Take 10 mL [facility] am (KEPPRA) 7-13 by mouth ity of 100 mg/mL 00:00: in the [place] oral 00 morning Medical solution and 10 mL Branch in the evening. metoprolol 3-0 Yes [id number] 25mg Take 1 U nivers succinate 7-13 tablet by ity o f XL 25 mg 24 00:00: mouth in [place] hr tablet 00 the Medical morning. Branch levETIRAcet 3-0 Yes [id number] 1000mg Take 10 mL [facility] am (KEPPRA) 7-13 by mouth ity of 100 mg/mL 00:00: in the [place] oral 00 morning Medical solution and 10 mL Branch in the evening. metoprolol 3-0 Yes [id number] 25mg Take 1 U nivers succinate 7-13 tablet by ity o f XL 25 mg 24 00:00: mouth in [place] hr tablet 00 the Medical morning. Branch levETIRAcet 2022-0 Yes [id number] 1000mg Take 10 mL [facility] am (KEPPRA) 7-13 by mouth ity of 100 mg/mL 00:00: in the [place] oral 00 morning Medical solution and 10 mL Branch in the evening. metoprolol 2022-0 Yes [id number] 25mg Take 1 U nivers succinate 7-13 tablet by ity o f XL 25 mg 24 00:00: mouth in [place] hr tablet 00 the Medical morning. Branch levETIRAcet 2022-0 Yes [id number] 1000mg Take 10 mL [facility] am (KEPPRA) 7-13 by mouth ity of 100 mg/mL 00:00: in the [place] oral 00 morning Medical solution and 10 mL Branch in the evening. metoprolol 2022-0 Yes [id number] 25mg Take 1 U nivers succinate 7-13 tablet by ity o f XL 25 mg 24 00:00: mouth in [place] hr tablet 00 the Medical morning. Branch levETIRAcet 2022-0 Yes [id number] 1000mg Take 10 mL [facility] am (KEPPRA) 7-13 by mouth ity of 100 mg/mL 00:00: in the [place] oral 00 morning Medical solution and 10 mL Branch in the evening. metoprolol 2022-0 Yes [id number] 25mg Take 1 U nivers succinate 7-13 tablet by ity o f XL 25 mg 24 00:00: mouth in [place] hr tablet 00 the Medical morning. Branch levETIRAcet 2022-0 Yes [id number] 1000mg Take 10 mL [facility] am (KEPPRA) 7-13 by mouth ity of 100 mg/mL 00:00: in the [place] oral 00 morning Medical solution and 10 mL Branch in the evening. metoprolol 3-0 Yes [id number] 25mg Take 1 U nivers succinate 7-13 tablet by ity o f XL 25 mg 24 00:00: mouth in [place] hr tablet 00 the Medical morning. Branch levETIRAcet 2022-0 Yes [id number] 1000mg Take 10 mL [facility] am (KEPPRA) 7-13 by mouth ity of 100 mg/mL 00:00: in the [place] oral 00 morning Medical solution and 10 mL Branch in the evening. metoprolol 3-0 Yes [id number] 25mg Take 1 U nivers succinate 7-13 tablet by ity o f XL 25 mg 24 00:00: mouth in [place] hr tablet 00 the Medical morning. Branch levETIRAcet 2022-0 Yes [id number] 1000mg Take 10 mL [facility] am (KEPPRA) 7-13 by mouth ity of 100 mg/mL 00:00: in the [place] oral 00 morning Medical solution and 10 mL Branch in the evening. metoprolol 2022-0 Yes [id number] 25mg Take 1 U nivers succinate 7-13 tablet by ity o f XL 25 mg 24 00:00: mouth in [place] hr tablet 00 the Medical morning. Branch levETIRAcet 2022-0 Yes [id number] 1000mg Take 10 mL [facility] am (KEPPRA) 7-13 by mouth ity of 100 mg/mL 00:00: in the [place] oral 00 morning Medical solution and 10 mL Branch in the evening. metoprolol 2022-0 Yes [id number] 25mg Take 1 U nivers succinate 7-13 tablet by ity o f XL 25 mg 24 00:00: mouth in [place] hr tablet 00 the Medical morning. Branch levETIRAcet 2022-0 Yes [id number] 1000mg Take 10 mL [facility] am (KEPPRA) 7-13 by mouth ity of 100 mg/mL 00:00: in the [place] oral 00 morning Medical solution and 10 mL Branch in the evening. metoprolol 3-0 Yes [id number] 25mg Take 1 U nivers succinate 7-13 tablet by ity o f XL 25 mg 24 00:00: mouth in [place] hr tablet 00 the Medical morning. Branch levETIRAcet 2022-0 Yes [id number] 1000mg Take 10 mL [facility] am (KEPPRA) 7-13 by mouth ity of 100 mg/mL 00:00: in the [place] oral 00 morning Medical solution and 10 mL Branch in the evening. metoprolol 3-0 Yes [id number] 25mg Take 1 U nivers succinate 7-13 tablet by ity o f XL 25 mg 24 00:00: mouth in [place] hr tablet 00 the morning. Branch levETIRAcet 2022-0 Yes [id number] 1000mg Take 10 mL [facility] am (KEPPRA) 7-13 by mouth ity of 100 mg/mL 00:00: in the [place] oral 00 morning Medical solution and 10 mL Branch in the evening. metoprolol 2022-0 Yes [id number] 25mg Take 1 U nivers succinate 7-13 tablet by ity o f XL 25 mg 24 00:00: mouth in [place] hr tablet 00 the morning. Branch levETIRAcet 2022-0 Yes [id number] 1000mg Take 10 mL [facility] am (KEPPRA) 7-13 by mouth ity of 100 mg/mL 00:00: in the [place] oral 00 morning Medical solution and 10 mL Branch in the evening. metoprolol 2022-0 Yes [id number] 25mg Take 1 U nivers succinate 7-13 tablet by ity o f XL 25 mg 24 00:00: mouth in [place] hr tablet 00 the morning. Branch ketorolac 2022- No 60mg 60 mg, Unive rs (TORADOL) 01-21- Intramuscu ity of injection 04:00: 03:39 lar, ONCE, [place] 60 mg 00 :00 1 dose, On Wed01/20/23 Branch at 2300, THIERRY HYDROcodone 2022-0 2022- No 1{tbl} 1 tablet, Univers -acetaminop 01-18 Oral, ity of hen (NORCO 15:00: 17:33 ONCE, 1 [place] 5) 5-325 mg 00 :00 dose, On Medi cherie tablet 1 Wed01/18/23 Branc h tablet at 1000, Routine, PACU HYDROcodone 2022-0 3- No 1{tbl} 1 tablet, [facility] -acetaminop 01-18- Oral, ity of hen (NORCO 15:00: 17:33 ONCE, 1 [place] 5) 5-325 mg 00 :00 dose, On Medi cherie tablet 1 Wed01/18/23 Branc h tablet at 1000, Routine, PACU HYDROmorphO 2022-0 Yes .2mg 0.2 mg, Uni vers ne 7 Slow IV ity of (DILAUDID) 14:56: Push, [place] injection 40 Q5MIN PRN, Medi cherie 0.2 mg 10 doses, Branch Starting on Wed01/18/23 at 0956, Until Discontinu ed, Routine, Pain (scale 7-10), PACU
Us e approved by (Faculty): PACU USE -ANESTHESI A SERVICE-HY DROMORPHON E INJECTIONS FENTanyl PF 2023-0 Yes 25ug 25 mcg, Uni vers (SUBLIMAZE 7 Slow IV ity of (PF)) 14:56: Push, [...] Routine, Nausea and Vomiting (N/V), PACU HYDROmorphO 3-0 2023- No .2mg 0.2 mg, [place] ne 01-18 Slow IV ity of (DILAUDID) 14:56: 20:17 Push, [place] injection 40 :01 Q5MIN PRN, Medi cherie 0.2 mg 10 doses, Branch Starting on Wed01/18/23 at 0956, Until Wed01/18/23 at 1517, Routine, Pain (scale 7-10), PACU
Us e approved by (Faculty): PACU USE -ANESTHESI A SERVICE-HY DROMORPHON E INJECTIONS FENTanyl PF 3-0 2023- No 25ug 25 mcg, [place] (SUBLIMAZE 01-18 Slow IV ity o f (PF)) 14:56: 20:17 Push, [place] injection 40 :01 Q5MIN PRN, Medi cherie 25 mcg 4 doses, Branch Starting on Wed01/18/23 at 0956, Until Wed01/18/23 at 1517, Routine, Pain (scale 4-6), PACU ondansetron 2022- No 4mg 4 mg, Slow [facility] (ZOFRAN 01-18-03 IV Push, ity of (PF)) 14:56: 20:17 PRN, 1 [place] injection 4 40 :01 dose, Medical mg Starting Branch on Wed01/18/23 at 0956, Until Wed01/18/23 at 1517, Routine, Nausea and Vomiting (N/V), PACU IMITREX 5 0 Yes as needed Uni vers MG/ACTUATIO 01-18 for ity of N NASAL 13:17: migraines [address] Yes Apply to [place] 0.1% in 01-18 affected ity o f aquaphor 13:17: area(s). [place] ([facility] Medical ) ointment Branch ARIPiprazol Yes by Univer s e (ABILIFY 01-18 Intramuscu ity of [facility]) 13:17: lar route [place] 300 mg once every Me dical month. Branch cariprazine Yes 1{capsu Take 1 U nivers (VRAYLAR) 3 7- le} capsule by it y of mg Cap 13:17: mouth in [place] the Medical morning Branch and 1 capsule in the evening. IMITREX 5 0 Yes as needed Uni vers MG/ACTUATIO 01-18 for ity of N NASAL 13:17: migraines [address] Yes Apply to [place] 0.1% in 01-18 affected ity o f aquaphor 13:17: area(s). [place] ([facility] Medical ) ointment Branch ARIPiprazol Yes by Univer s e (ABILIFY 01-18 Intramuscu ity of [facility]) 13:17: lar route [place] 300 mg once every Me dical month. Branch cariprazine Yes 1{capsu Take 1 U nivers (VRAYLAR) 3 7-03 le} capsule by it y of mg Cap 13:17: mouth in [place] the Medical morning Branch and 1 capsule in the evening. IMITREX 5 2023-0 Yes as needed Uni vers MG/ACTUATIO 7 for ity of N NASAL 13:17: [facility] Yes Apply to [place] 0.1% in 01-18 affected ity o f aquaphor 13:17: area(s). [place] ([facility]OUND[facility] Medical ) ointment Branch ARIPiprazol Yes by Univer s e (ABILIFY 01-18 Intramuscu ity of [facility]) 13:17: lar route [place] 300 mg sers 01 once every Me dical month. Branch cariprazine Yes 1{capsu Take 1 U nivers (VRAYLAR) 3 7-03 le} capsule by it y of mg Cap 13:17: mouth in [place] the Medical morning Branch and 1 capsule in the evening. IMITREX 5 Yes as needed Uni vers MG/ACTUATIO 01-18 for ity of N NASAL 13:17: migraines [place] [id number] Medical [facility] Yes Apply to Un [place] ne 0.1% in 01-18 affected ity o f aquaphor 13:17: area(s). [place] ([facility]OUND[facility] Medical ) ointment Branch ARIPiprazol Yes by [employer] s e (ABILIFY 01-18 [facility]) 13:17: lar route [place] 300 mg sers 01 once every Me dical month. Branch cariprazine Yes 1{capsu Take 1 U nivers (VRAYLAR) 3 7-03 le} capsule by it y of mg Cap 13:17: mouth in [place] the Medical morning Branch and 1 capsule in the evening. IMITREX 5 0 Yes as needed Uni vers MG/ACTUATIO 7 for ity of N NASAL 13:17: [facility]ines [facility] Yes Apply to [place] 0.1% in 01-18 affected ity o f aquaphor 13:17: area(s). [place] ([facility]OUND[facility] Medical ) ointment Branch ARIPiprazol Yes by Univer s e (ABILIFY 01-18 Intramuscu ity of [employer]) 13:17: lar route [place] 300 mg sers 01 once every Me dical month. Branch cariprazine Yes 1{capsu Take 1 U nivers (VRAYLAR) 3 7- le} capsule by it y of mg Cap 13:17: mouth in [place] the Medical morning Branch and 1 capsule in the evening. IMITREX 5 Yes as needed Uni vers MG/ACTUATIO 7 for ity of N NASAL 13:17: migraines [facility] Medical Branch pending sale to [facility] Yes Apply to [place] 0.1% in 01-18 affected ity o f aquaphor 13:17: area(s). [place] ([facility]OUND[facility] Medical ) ointment Branch ARIPiprazol Yes by Univer s e (ABILIFY 01-18 Intramuscu ity of [employer]) 13:17: lar route [place] 300 mg sers 01 once every Me dical month. Branch IMITREX 5 Yes as needed Uni vers MG/ACTUATIO 01-18 for ity of N NASAL 13:17: migraines [facility] Yes Apply to Un [place] 0.1% in 01-18 affected ity o f aquaphor 13:17: area(s). [place] ([facility] Medical ) ointment Branch ARIPiprazol Yes by Univer s e (ABILIFY 01-18 Intramuscu ity of [employer]) 13:17: lar route [place] 300 mg sers 01 once every Me dical month. Branch cariprazine Yes 1{capsu Take 1 U nivers (VRAYLAR) 3 7- le} capsule by it y of mg Cap 13:17: mouth in [place] the Medical morning Branch and 1 capsule in the evening. IMITREX 5 Yes as needed Uni vers MG/ACTUATIO 01-18 for ity of N NASAL 13:17: [facility] Yes Apply to [place] 0.1% in 01-18 affected ity o f aquaphor 13:17: area(s). [place] (COMPOUND[facility] Medical ) ointment Branch ARIPiprazol Yes by Univer s e (ABILIFY 01-18 Intramuscu ity of [facility]) 13:17: lar route [place] 300 mg sers once every Me dical month. Branch cariprazine Yes 1{capsu Take 1 U nivers (VRAYLAR) 3 01-18 le} capsule by it y of mg Cap 13:17: mouth in [place] the Medical morning Branch and 1 capsule [...] 5 Yes as needed Uni vers MG/ACTUATIO 01-14 for ity of N NASAL 12:08: [facility] [place] [facility] triam[facility] Yes Apply to [place] 0.1% in 01-14 affected ity o f aquaphor 12:08: area(s). [place] (COMPOUNDED Medical ) ointment Branch ARIPiprazol Yes by Univer s e (ABILIFY 01-14 [facility]) 12:08: lar route [place] 300 mg sers 17 once every Me dical month. Branch cariprazine Yes 1{capsu Take 1 U nivers (VRAYLAR) 3 6-29 le} capsule by it y of mg Cap 12:08: mouth in [place] [address] the Medical morning Branch and 1 capsule in the evening. IMITREX 5 2022-0 Yes as needed Uni vers MG/ACTUATIO 6-29 for ity of N NASAL 12:08: migraines [address] Yes Apply to [place] 0.1% in 01-14 affected ity o f aquaphor 12:08: area(s). [place] [facility]int[facility] Branch ARIPiprazol Yes by [employer] s e (ABILIFY 6 Intramuscu ity of [facility]) 12:08: lar route [place] 300 mg sers 17 once every Me dical month. Branch cariprazine Yes 1{capsu Take 1 U nivers (VRAYLAR) 3 6-29 le} capsule by it y of mg Cap 12:08: mouth in [place] [address] the Medical morning Branch and 1 capsule in the evening. IMITREX 5 2022-0 Yes as needed Uni vers MG/ACTUATIO 6-29 for ity of N NASAL 12:08: migraines [address] Yes Apply to [place] 0.1% in 01-14 affected ity o f aquaphor 12:08: area(s). [place] (COMPOUNDED Medical ) ointment Branch ARIPiprazol Yes by Univer s e (ABILIFY 6 Intramuscu ity of [facility]) 12:08: lar route [place] 300 mg sers 17 once every Me dical month. Branch cariprazine Yes 1{capsu Take 1 U nivers (VRAYLAR) 3 6-29 le} capsule by it y of mg Cap 12:08: mouth in [place] [address] the Medical morning Branch and 1 capsule [...] 00 needed. Medical Branch traMADoL 50 3-0 2023- No 50mg Take 1 Uni vers mg tablet 6-23 08-08 tablet by ity of 00:00: 00:00 mouth as [place] 00 :00 needed. Medical Branch traMADoL 50 2022-0 2022- No 50mg Take 1 Uni vers mg tablet 01-08- tablet by ity of 00:00: 00:00 mouth as [place] 00 :00 needed. Medical Branch traMADoL 50 2022-0 2022- No 50mg Take 1 Uni vers mg tablet 01-08- tablet by ity of 00:00: 00:00 mouth as [place] 00 :00 needed. Medical Branch acetaminoph 2022-0 Yes 1{tbl} [...] tablet 00 needed. Medical Branch acetaminoph 3-0 2022- No 1{tbl} Take 1 U nivers en-codeine 6-20 08-08 tablet by ity of 300-30 mg 00:00: 00:00 mouth as [place] tablet 00 :00 needed. Medical Branch acetaminoph 2022-0 2022- No 1{tbl} Take 1 U nivers en-codeine 6-20 08-08 tablet by ity of 300-30 mg 00:00: 00:00 mouth as [place] tablet 00 :00 needed. Medical Branch acetaminoph 2022- No 1{tbl} Take 1 U nivers en-codeine 6-20 08-08 tablet by ity of 300-30 mg 00:00: 00:00 mouth as [place] tablet 00 :00 needed. Medical Branch hydrocortis Yes 1{appli Apply 1 Univers one 2.5 % 6-16 cator} Applicator it y of cream 00:00: to area(s) [place] [address] as needed. Medical Branch nystatin Yes 1{dose} Apply 1 Uni vers 100,000 6-16 Dose to ity of unit/gram 00:00: area(s) in [facility] 00 the Medical morning. Branch terbinafine Yes 1{dose} Apply 1 [facility] HCL 1 % 6-16 Dose to ity of cream 00:00: area(s) in [place] 00 the Medical morning. Branch hydrocortis Yes 1{appli Apply 1 [facility] one 2.5 % 6-16 cator} Applicator it y of cream 00:00: to area(s) [place] [address] as needed. Medical Branch nystatin Yes 1{dose} Apply 1 Uni vers 100,000 6-16 Dose to ity of unit/gram 00:00: area(s) in [facility] cream 00 the Medical morning. Branch terbinafine 0 Yes 1{dose} Apply 1 Univers HCL 1 % 6-16 Dose to ity of cream 00:00: area(s) in [place] 00 the Medical morning. Branch hydrocortis 2022-0 Yes 1{appli Apply 1 [facility] one 2.5 % 6-16 cator} Applicator it y of cream 00:00: to area(s) [place] [address] as needed. Medical Branch nystatin 0 Yes 1{dose} Apply 1 Uni vers 100,000 6-16 Dose to ity of unit/gram 00:00: area(s) in [facility] cream 00 the Medical morning. Branch terbinafine 2022-0 Yes 1{dose} Apply 1 Univers HCL 1 % 6-16 Dose to ity of cream 00:00: area(s) in [place] 00 the Medical morning. Branch hydrocortis 2022-0 Yes 1{appli Apply 1 [facility] one 2.5 % 6-16 cator} Applicator it y of cream 00:00: to area(s) [place] 00 as needed. Medical Branch nystatin 2022-0 Yes 1{dose} Apply 1 Uni vers 100,000 6-16 Dose to ity of unit/gram 00:00: area(s) in [place] cream 00 the Medical morning. Branch terbinafine 2022-0 Yes 1{dose} Apply 1 Univers HCL 1 % 6-16 Dose to ity of cream 00:00: area(s) in [place] 00 the Medical morning. Branch hydrocortis 2022-0 Yes 1{appli Apply 1 Univers one 2.5 % 6-16 cator} Applicator it y of cream 00:00: to area(s) [place] 00 as needed. Medical Branch nystatin 2022-0 Yes 1{dose} Apply 1 Uni vers 100,000 6-16 Dose to ity of unit/gram 00:00: [place](s[place] cream 00 the Medical morning. Branch terbinafine 2022-0 Yes 1{dose} Apply 1 Univers HCL 1 % 6-16 Dose to ity of cream 00:00: area(s) in [place] 00 the Medical morning. Branch hydrocortis 2022-0 Yes 1{appli Apply 1 [facility] one 2.5 % 6-16 cator} Applicator it y of cream 00:00: to area(s) [place] 00 as needed. Medical Branch nystatin 2022-0 Yes 1{dose} Apply 1 Uni vers 100,000 6-16 Dose to ity of unit/gram 00:00: area(s) in [place] cream 00 the Medical morning. Branch terbinafine 2022-0 Yes 1{dose} Apply 1 [facility] HCL 1 % 6-16 Dose to ity of cream 00:00: area(s) in [place] 00 the Medical morning. Branch hydrocortis 2022-0 Yes 1{appli Apply 1 Univers one 2.5 % 6-16 cator} Applicator it y of cream 00:00: to area(s) [place] [address] as needed. Medical Branch nystatin 2023-0 Yes 1{dose} Apply 1 Uni vers 100,000 6-16 Dose to ity of unit/gram 00:00: area(s) in [place] cream 00 the Medical morning. Branch terbinafine 2022-0 Yes 1{dose} Apply 1 Univers HCL 1 % 6-16 Dose to ity of cream 00:00: area(s) in [place] 00 the Medical morning. Branch hydrocortis 2022-0 Yes 1{appli Apply 1 Univers one 2.5 % 6-16 cator} Applicator it y of cream 00:00: to area(s) [place] 00 as needed. Medical Branch nystatin 2022-0 Yes 1{dose} Apply 1 Uni vers 100,000 6-16 Dose to ity of unit/gram 00:00: area(s) in [place] cream 00 the Medical morning. Branch terbinafine 2022-0 Yes 1{dose} Apply 1 Univers HCL 1 % 6-16 Dose to ity of cream 00:00: area(s) in [place] 00 the Medical morning. Branch hydrocortis 2022-0 Yes 1{appli Apply 1 Univers one 2.5 % 6-16 cator} Applicator it y of cream 00:00: to area(s) [place] [address] as needed. Medical Branch nystatin 2022-0 Yes 1{dose} Apply 1 Uni vers 100,000 6-16 Dose to ity of unit/gram 00:00: area(s) in [place] cream 00 the Medical morning. Branch terbinafine 2022-0 Yes 1{dose} Apply 1 Univers HCL 1 % 6-16 Dose to ity of cream 00:00: area(s) in [place] 00 the Medical morning. Branch hydrocortis 2022-0 Yes 1{appli Apply 1 Univers one 2.5 % 6-16 cator} Applicator it y of cream 00:00: to area(s) [place] [address] as needed. Medical Branch nystatin 2022-0 Yes 1{dose} Apply 1 Uni vers 100,000 6-16 Dose to ity of unit/gram 00:00: area(s) in [place] cream 00 the Medical morning. Branch terbinafine 2022-0 Yes 1{dose} Apply 1 Univers HCL 1 % 6-16 Dose to ity of cream 00:00: area(s) in [place] 00 the Medical morning. Branch hydrocortis 2022-0 Yes 1{appli Apply 1 [facility] one 2.5 % 6-16 cator} Applicator it y of cream 00:00: to area(s) [place] [address] as needed. Medical Branch nystatin 2022-0 Yes 1{dose} Apply 1 Uni vers 100,000 6-16 Dose to ity of unit/gram 00:00: area(s) in [facility] 00 the Medical morning. Branch terbinafine 2022-0 Yes 1{dose} Apply 1 Univers HCL 1 % 6-16 Dose to ity of cream 00:00: area(s) in [place] [address] the Medical morning. Branch hydrocortis 2022-0 Yes 1{appli Apply 1 Univers one 2.5 % 6-16 cator} Applicator it y of cream 00:00: to area(s) [place] [address] as needed. Medical Branch nystatin 2022-0 Yes 1{dose} Apply 1 Uni vers 100,000 6-16 Dose to ity of unit/gram 00:00: area(s) in [facility] 00 the Medical morning. Branch terbinafine 2022-0 Yes 1{dose} Apply 1 Univers HCL 1 % 6-16 Dose to ity of cream 00:00: area(s) in [place] 00 the Medical morning. Branch hydrocortis 2022-0 Yes 1{appli Apply 1 Univers one 2.5 % 6-16 cator} Applicator it y of cream 00:00: to area(s) [place] [address] as needed. Medical Branch nystatin 2022-0 Yes 1{dose} Apply 1 Uni vers 100,000 6-16 Dose to ity of unit/gram 00:00: area(s) in [facility] cream 00 the Medical morning. Branch terbinafine 2022-0 Yes 1{dose} Apply 1 Univers HCL 1 % 6-16 Dose to ity of cream 00:00: area(s) in [place] 00 the Medical morning. Branch hydrocortis 2022-0 Yes 1{appli Apply 1 Univers one 2.5 % 6-16 cator} Applicator it y of cream 00:00: to area(s) [place] [address] as needed. Medical Branch nystatin 2022-0 Yes 1{dose} Apply 1 Uni vers 100,000 6-16 Dose to ity of unit/gram 00:00: area(s) in [place] cream 00 the Medical morning. Branch terbinafine 2022-0 Yes 1{dose} Apply 1 Univers HCL 1 % 6-16 Dose to ity of cream 00:00: area(s) in [place] 00 the Medical morning. Branch hydrocortis 2022-0 Yes 1{appli Apply 1 Univers one 2.5 % 6-16 cator} Applicator it y of cream 00:00: to area(s) [place] 00 as needed. Medical Branch nystatin 2022-0 Yes 1{dose} Apply 1 Uni vers 100,000 6-16 Dose to ity of unit/gram 00:00: area(s) in [place] cream 00 the Medical morning. Branch terbinafine 2022-0 Yes 1{dose} Apply 1 Univers HCL 1 % 6-16 Dose to ity of cream 00:00: area(s) in [place] 00 the Medical morning. Branch hydrocortis 2022-0 Yes 1{appli Apply 1 Univers one 2.5 % 6-16 cator} Applicator it y of cream 00:00: to area(s) [place] [address] as needed. Medical Branch nystatin 2022-0 Yes 1{dose} Apply 1 Uni vers 100,000 6-16 Dose to ity of unit/gram 00:00: area(s) in [place] cream 00 the Medical morning. Branch terbinafine 2022-0 Yes 1{dose} Apply 1 Univers HCL 1 % 6-16 Dose to ity of cream 00:00: area(s) in [place] 00 the Medical morning. Branch hydrocortis 2022-0 Yes 1{appli Apply 1 Univers one 2.5 % 6-16 cator} Applicator it y of cream 00:00: to area(s) [place] [address] as needed. Medical Branch nystatin 2022-0 Yes 1{dose} Apply 1 Uni vers 100,000 6-16 Dose to ity of unit/gram 00:00: area(s) in [place] cream 00 the Medical morning. Branch terbinafine 2022-0 Yes 1{dose} Apply 1 Univers HCL 1 % 6-16 Dose to ity of cream 00:00: area(s) in [place] 00 the Medical morning. Branch hydrocortis 2022-0 Yes 1{appli Apply 1 Univers one 2.5 % 6-16 cator} Applicator it y of cream 00:00: to area(s) [place] [address] as needed. Medical Branch nystatin 2022-0 Yes 1{dose} Apply 1 Uni vers 100,000 6-16 Dose to ity of unit/gram 00:00: area(s) in [place] cream 00 the Medical morning. Branch terbinafine 2022-0 Yes 1{dose} Apply 1 Univers HCL 1 % 6-16 Dose to ity of cream 00:00: area(s) in [place] 00 the Medical morning. Branch hydrocortis 2022-0 Yes 1{appli Apply 1 Univers one 2.5 % 6-16 cator} Applicator it y of cream 00:00: to area(s) [place] [address] as needed. Medical Branch nystatin 2022-0 Yes 1{dose} Apply 1 Uni vers 100,000 6-16 Dose to ity of unit/gram 00:00: area(s) in [facility] cream 00 the Medical morning. Branch terbinafine 2022-0 Yes 1{dose} Apply 1 Univers HCL 1 % 6-16 Dose to ity of cream 00:00: area(s) in [place] 00 the Medical morning. Branch hydrocortis 2022-0 Yes 1{appli Apply 1 Univers one 2.5 % 6-16 cator} Applicator it y of cream 00:00: to area(s) [place] [address] as needed. Medical Branch nystatin 2022-0 Yes 1{dose} Apply 1 Uni vers 100,000 6-16 Dose to ity of unit/gram 00:00: area(s) in [place] cream 00 the Medical morning. Branch terbinafine 2022-0 Yes 1{dose} Apply 1 Univers HCL 1 % 6-16 Dose to ity of cream 00:00: area(s) in [place] 00 the Medical morning. Branch hydrocortis 2022-0 Yes 1{appli Apply 1 Univers one 2.5 % 6-16 cator} Applicator it y of cream 00:00: to area(s) [place] [address] as needed. Medical Branch nystatin 2022-0 Yes 1{dose} Apply 1 Uni vers 100,000 6-16 Dose to ity of unit/gram 00:00: area(s) in [place] cream 00 the Medical morning. Branch terbinafine 2023-0 Yes 1{dose} Apply 1 [facility] HCL 1 % 6-16 Dose to ity of cream 00:00: area(s) in [place] 00 the Medical morning. Branch hydrocortis 2022-0 Yes 1{appli Apply 1 [facility] one 2.5 % 6-16 cator} Applicator it y of cream 00:00: to area(s) [place] 00 as needed. Medical Branch nystatin 2022-0 Yes 1{dose} Apply 1 Uni vers 100,000 6-16 Dose to ity of unit/gram 00:00: area(s) in [place] cream 00 the Medical morning. Branch terbinafine 2022-0 Yes 1{dose} Apply 1 [facility] HCL 1 % 6-16 Dose to ity of cream 00:00: area(s) in [place] 00 the Medical morning. Branch hydrocortis 2022-0 Yes 1{appli Apply 1 [facility] one 2.5 % 6-16 cator} Applicator it y of cream 00:00: to area(s) [place] [address] as needed. Medical Branch nystatin 2022-0 Yes 1{dose} Apply 1 [facility] vers 100,000 6-16 Dose to ity of unit/gram 00:00: area(s) in [place] cream 00 the Medical morning. Branch terbinafine 2022-0 Yes 1{dose} Apply 1 [facility] HCL 1 % 6-16 Dose to ity of cream 00:00: area(s) in [place] 00 the Medical morning. Branch hydrocortis 2022-0 Yes 1{appli Apply 1 [facility] one 2.5 % 6-16 cator} Applicator it y of cream 00:00: to area(s) [place] [address] as needed. Medical Branch nystatin 2022-0 Yes 1{dose} Apply 1 [facility] vers 100,000 6-16 Dose to ity of unit/gram 00:00: area(s) in [place] cream 00 the Medical morning. Branch terbinafine 2022-0 Yes 1{dose} Apply 1 [facility] HCL 1 % 6-16 Dose to ity of cream 00:00: area(s) in [place] 00 the Medical morning. Branch hydrocortis 2022-0 Yes 1{appli Apply 1 [facility] one 2.5 % 6-16 cator} Applicator it y of cream 00:00: to area(s) [place] [address] as needed. Medical Branch nystatin 3-0 Yes 1{dose} Apply 1 [facility] vers 100,000 6-16 Dose to ity of unit/gram 00:00: area(s) in [place] cream 00 the Medical morning. Branch terbinafine 3-0 Yes 1{dose} Apply 1 [facility] HCL 1 % 6-16 Dose to ity of cream 00:00: area(s) in [place] 00 the Medical morning. Branch hydrocortis 2022-0 Yes 1{appli Apply 1 [facility] one 2.5 % 6-16 cator} Applicator it y of cream 00:00: to area(s) [place] [address] as needed. Medical Branch nystatin 2022-0 Yes 1{dose} Apply 1 [facility] vers 100,000 6-16 Dose to ity of unit/gram 00:00: area(s[place] cream 00 the Medical morning. Branch terbinafine 2022-0 Yes 1{dose} Apply 1 [facility] HCL 1 % 6-16 Dose to ity of cream 00:00: area(s) in [place] 00 the Medical morning. Branch hydrocortis 2022-0 Yes 1{appli Apply 1 [facility] one 2.5 % 6-16 cator} Applicator it y of cream 00:00: to area(s) [place] [address] as needed. Medical Branch nystatin 2022-0 Yes 1{dose} Apply 1 [facility] vers 100,000 6-16 Dose to ity of unit/gram 00:00: area(s) in [place] cream 00 the Medical morning. Branch terbinafine 2022-0 Yes 1{dose} Apply 1 [facility] HCL 1 % 6-16 Dose to ity of cream 00:00: area(s) in [place] 00 the Medical morning. Branch hydrocortis 3-0 Yes 1{appli Apply 1 [facility] one 2.5 % 6-16 cator} Applicator it y of cream 00:00: to area(s) [place] [address] as needed. Medical Branch nystatin 2022-0 Yes 1{dose} Apply 1 [facility] vers 100,000 6-16 Dose to ity of unit/gram 00:00: area(s) in [place] cream 00 the Medical morning. Branch hydrocortis 2023-0 Yes 1{appli Apply 1 [facility] one 2.5 % 6-16 cator} Applicator it y of cream 00:00: to area(s) [place] 00 as needed. Medical Branch nystatin 2022-0 Yes 1{dose} Apply 1 [facility] vers 100,000 6-16 Dose to ity of unit/gram 00:00: area(s) in [place] cream 00 the Medical morning. Branch hydrocortis 2022-0 Yes 1{appli Apply 1 [facility] one 2.5 % 6-16 cator} Applicator it y of cream 00:00: to area(s) [place] 00 as needed. Medical Branch nystatin 2022-0 Yes 1{dose} Apply 1 [facility] vers 100,000 6-16 Dose to ity of unit/gram 00:00: area(s) in [place] cream 00 the Medical morning. Branch hydrocortis 2022-0 Yes 1{appli Apply 1 [facility] one 2.5 % 6-16 cator} Applicator it y of cream 00:00: to area(s) [place] 00 as needed. Medical Branch nystatin 2022-0 Yes 1{dose} Apply 1 [facility] vers 100,000 6-16 Dose to ity of unit/gram 00:00: area(s) in [place] cream 00 the Medical morning. Branch hydrocortis 2022-0 Yes 1{appli Apply 1 [facility] one 2.5 % 6-16 cator} Applicator it y of cream 00:00: to area(s) [place] 00 as needed. Medical Branch nystatin 2022-0 Yes 1{dose} Apply 1 [facility] vers 100,000 6-16 Dose to ity of unit/gram 00:00: area(s) in [place] cream 00 the Medical morning. Branch hydrocortis 2022-0 Yes 1{appli Apply 1 [facility] one 2.5 % 6-16 cator} Applicator it y of cream 00:00: to area(s) [place] 00 as needed. Medical Branch nystatin 2022-0 Yes 1{dose} Apply 1 [facility] vers 100,000 6-16 Dose to ity of unit/gram 00:00: area(s) in [place] cream 00 the Medical morning. Branch hydrocortis 2022-0 Yes 1{appli Apply 1 [facility] one 2.5 % 6-16 cator} Applicator it y of cream 00:00: to area(s) [place] 00 as needed. Medical Branch nystatin 2022-0 Yes 1{dose} Apply 1 [facility] vers 100,000 6-16 Dose to ity of unit/gram 00:00: area(s) in [place] cream 00 the Medical morning. Branch hydrocortis 2022-0 Yes 1{appli Apply 1 [facility] one 2.5 % 6-16 cator} Applicator it y of cream 00:00: to area(s) [place] 00 as needed. Medical Branch nystatin 2022-0 Yes 1{dose} Apply 1 [facility] vers 100,000 6-16 Dose to ity of unit/gram 00:00: area(s) in [place] cream 00 the Medical morning. Branch hydrocortis 2022-0 Yes 1{appli Apply 1 [facility] one 2.5 % 6-16 cator} Applicator it y of cream 00:00: to area(s) [place] 00 as needed. Medical Branch nystatin 2022-0 Yes 1{dose} Apply 1 [facility] vers 100,000 6-16 Dose to ity of unit/gram 00:00: area(s) in [place] cream 00 the Medical morning. Branch hydrocortis 2022-0 Yes 1{appli Apply 1 [facility] one 2.5 % 6-16 cator} Applicator it y of cream 00:00: to area(s) [place] 00 as needed. Medical Branch nystatin 2022-0 Yes 1{dose} Apply 1 [facility] vers 100,000 6-16 Dose to ity of unit/gram 00:00: area(s) in [place] cream 00 the Medical morning. Branch hydrocortis 2022-0 Yes 1{appli Apply 1 [facility] one 2.5 % 6-16 cator} Applicator it y of cream 00:00: to area(s) [place] 00 as needed. Medical Branch nystatin 2022-0 Yes 1{dose} Apply 1 [facility] vers 100,000 6-16 Dose to ity of unit/gram 00:00: area(s) in [place] cream 00 the Medical morning. Branch hydrocortis 2022-0 Yes 1{appli Apply 1 [facility] one 2.5 % 6-16 cator} Applicator it y of cream 00:00: to area(s) [place] 00 as needed. Medical Branch nystatin 2022-0 Yes 1{dose} Apply 1 [facility] vers 100,000 6-16 Dose to ity of unit/gram 00:00: area(s) in [place] cream 00 the Medical morning. Branch hydrocortis Yes 1{appli Apply 1 [facility] one 2.5 % 6-16 cator} Applicator it y of cream 00:00: to area(s) [place] 00 as needed. Medical Branch nystatin 2022-0 Yes 1{dose} Apply 1 [facility] vers 100,000 6-16 Dose to ity of unit/gram 00:00: area(s) in [place] cream 00 the Medical morning. Branch terbinafine 2023- No 1{dose} Apply 1 [facility] HCL 1 % 6-16 08-08 Dose to ity of cream 00:00: 00:00 area(s) in [place] 00 :00 the Medical morning. Branch terbinafine 2022-0 3- No 1{dose} Apply 1 [facility] HCL 1 % 6-16 08-08 Dose to ity of cream 00:00: 00:00 area(s) in [place] 00 :00 the Medical morning. Branch terbinafine 0 3- No 1{dose} Apply 1 [facility] HCL 1 % 6-16 08-08 Dose to ity of cream 00:00: 00:00 area(s) in [place] 00 :00 the Medical morning. Branch metoprolol 2022-0 Yes [id number] 25mg Take 1 U nivers succinate 6-06 tablet by ity o f XL 25 mg 24 00:00: mouth in [place] hr tablet 00 the Medical morning. Branch metoprolol 2022-0 Yes [id number] 25mg Take 1 U nivers succinate 6-06 tablet by ity o f XL 25 mg 24 00:00: mouth in [place] hr tablet 00 the Medical morning. Branch metoprolol 2022-0 Yes [id number] 25mg Take 1 U nivers succinate 6-06 tablet by ity o f XL 25 mg 24 00:00: mouth in [place] hr tablet 00 the Medical morning. Branch metoprolol 2022-0 Yes [id number] 25mg Take 1 U nivers succinate 6-06 tablet by ity o f XL 25 mg 24 00:00: mouth in [place] hr tablet 00 the Medical morning. Branch metoprolol 2023-0 Yes [id number] 25mg Take 1 U nivers succinate 6-06 tablet by ity o f XL 25 mg 24 00:00: mouth in [place] hr tablet 00 the Medical morning. Branch metoprolol 3-0 Yes [id number] 25mg Take 1 U nivers succinate 6-06 tablet by ity o f XL 25 mg 24 00:00: mouth in [place] hr tablet 00 the Medical morning. Branch metoprolol 3-0 Yes [id number] 25mg Take 1 U nivers succinate 6-06 tablet by ity o f XL 25 mg 24 00:00: mouth in [place] hr tablet 00 the Medical morning. Branch metoprolol 3-0 Yes [id number] 25mg Take 1 U nivers succinate 6-06 tablet by ity o f XL 25 mg 24 00:00: mouth in [place] hr tablet 00 the Medical morning. Branch metoprolol 2022-0 Yes [id number] 25mg Take 1 U nivers succinate 6-06 tablet by ity o f XL 25 mg 24 00:00: mouth in [place] hr tablet 00 the Medical morning. Branch metoprolol 2022-0 Yes [id number] 25mg Take 1 U nivers succinate 6-06 tablet by ity o f XL 25 mg 24 00:00: mouth in [place] hr tablet 00 the Medical morning. Branch metoprolol 2022-0 Yes [id number] 25mg Take 1 U nivers succinate 6-06 tablet by ity o f XL 25 mg 24 00:00: mouth in [place] hr tablet 00 the Medical morning. Branch metoprolol 3-0 Yes [id number] 25mg Take 1 U nivers succinate 6-06 tablet by ity o f XL 25 mg 24 00:00: mouth in [place] hr tablet 00 the Medical morning. Branch metoprolol 3-0 Yes [id number] 25mg Take 1 U nivers succinate 6-06 tablet by ity o f XL 25 mg 24 00:00: mouth in [place] hr tablet 00 the Medical morning. Branch metoprolol 3-0 Yes [id number] 25mg Take 1 U nivers succinate 6-06 tablet by ity o f XL 25 mg 24 00:00: mouth in [place] hr tablet 00 the Medical morning. Branch metoprolol 3-0 Yes [id number] 25mg Take 1 U nivers succinate 6-06 tablet by ity o f XL 25 mg 24 00:00: mouth in [place] hr tablet 00 the Medical morning. Branch metoprolol 3-0 Yes [id number] 25mg Take 1 U nivers succinate 6-06 tablet by ity o f XL 25 mg 24 00:00: mouth in [place] hr tablet 00 the Medical morning. Branch metoprolol 3-0 Yes [id number] 25mg Take 1 U nivers succinate 6-06 tablet by ity o f XL 25 mg 24 00:00: mouth in [place] hr tablet 00 the Medical morning. Branch metoprolol 3-0 Yes [id number] 25mg Take 1 [facility] nivers succinate 6-06 tablet by ity o f XL 25 mg 24 00:00: mouth in [place] hr tablet 00 the Medical morning. Branch metoprolol 3-0 Yes [id number] 25mg Take 1 [facility] nivers succinate 6-06 tablet by ity o f XL 25 mg 24 00:00: mouth in [place] hr tablet 00 the Medical morning. Branch metoprolol 3-0 Yes [id number] 25mg Take 1 U nivers succinate 6-06 tablet by ity o f XL 25 mg 24 00:00: mouth in [place] hr tablet 00 the Medical morning. Branch metoprolol 3-0 Yes [id number] 25mg Take 1 U nivers succinate 6-06 tablet by ity o f XL 25 mg 24 00:00: mouth in [place] hr tablet 00 the Medical morning. Branch metoprolol 3-0 Yes [id number] 25mg Take 1 [facility] nivers succinate 6-06 tablet by ity o f XL 25 mg 24 00:00: mouth in [place] hr tablet 00 the Medical morning. Branch metoprolol 3-0 Yes [id number] 25mg Take 1 [facility] nivers succinate 6-06 tablet by ity o f XL 25 mg 24 00:00: mouth in [place] hr tablet 00 the Medical morning. Branch metoprolol 3-0 Yes [id number] 25mg Take 1 [facility] nivers succinate 6-06 tablet by ity o f XL 25 mg 24 00:00: mouth in [place] hr tablet 00 the Medical morning. Branch metoprolol 2022- No [id number] 25mg Take 1 [facility] succinate 12-22- tablet by ity of XL 25 mg 24 00:00: 00:00 mouth in [place] hr tablet 00 :00 the Medical morning. Branch metoprolol 0 2022- No [id number] 25mg Take 1 [facility] succinate 12-22-13 tablet by ity of XL 25 mg 24 00:00: 00:00 mouth in [place] hr tablet 00 :00 the Medical morning. Branch metoprolol 2022- No [id number] 25mg Take 1 [facility] succinate 12-22 tablet by ity of XL 25 mg 24 00:00: 00:00 mouth in [place] hr tablet 00 :00 the Medical morning. Branch cariprazine 2022- No 1.5mg Take 1.5 [facility] (VRAYLAR) 6-05 06-05 mg by ity of 1.5 mg (1)- 08:42: 00:[place] 3 mg (6) 24 :00 every Medical CpPk morning. Branch cariprazine 2022- No 1.5mg Take 1.5 [facility] (VRAYLAR) 6-05 06-05 mg by ity of 1.5 mg (1)- 08:42: 00:00 [place] 3 mg (6) 24 :00 every Medical CpPk morning. Branch cariprazine 2022- No 1.5mg Take 1.5 [facility] (VRAYLAR) 6-05 06-05 mg by ity of 1.5 mg (1)- 08:42: 00:00 [place] 3 mg (6) 24 :00 every Medical CpPk morning. Branch SUMAtriptan Yes [id number] 100mg Take 1 [facility] 100 mg 6-05 [...] than 3 days in a week. SUMAtriptan 2022-0 Yes [id number] 100mg Take 1 [facility] 100 mg 6-05 [...] days in a week. SUMAtriptan 2023-0 Yes [id number] 100mg Take 1 [facility] 100 mg 6-05 [...] days in a week. SUMAtriptan 2023-0 Yes [id number] 100mg Take 1 [facility] 100 mg 6-05 [...] days in a week. SUMAtriptan 2023-0 Yes [id number] 100mg Take 1 [facility] 100 mg 6-05 [...] days in a week. SUMAtriptan 2023-0 Yes [id number] 100mg Take 1 [facility] 100 mg 6-05 [...] days in a week. SUMAtriptan 2023-0 Yes [id number] 100mg Take 1 [facility] 100 mg 6-05 [...] days in a week. SUMAtriptan 2023-0 Yes [id number] 100mg Take 1 [facility] 100 mg 6-05 [...] days in a week. SUMAtriptan 2023-0 Yes [id number] 100mg Take 1 [facility] 100 mg 6-05 [...] days in a week. SUMAtriptan 2023-0 Yes [id number] 100mg Take 1 [facility] 100 mg 6-05 [...] days in a week. SUMAtriptan 2023-0 Yes [id number] 100mg Take 1 [facility] 100 mg 6-05 [...] days in a week. SUMAtriptan 2023-0 Yes [id number] 100mg Take 1 [facility] 100 mg 6-05 [...] days in a week. SUMAtriptan 2023-0 Yes [id number] 100mg Take 1 [facility] 100 mg 6-05 [...] days in a week. SUMAtriptan 2023-0 Yes [id number] 100mg Take 1 [facility] 100 mg 6-05 [...] days in a week. SUMAtriptan 2023-0 Yes [id number] 100mg Take 1 [facility] 100 mg 6-05 [...] days in a week. SUMAtriptan 2023-0 Yes [id number] 100mg Take 1 [facility] 100 mg 6-05 [...] days in a week. SUMAtriptan 2023-0 Yes [id number] 100mg Take 1 [facility] 100 mg 6-05 [...] days in a week. SUMAtriptan 2023-0 Yes [id number] 100mg Take 1 [facility] 100 mg 6-05 [...] days in a week. SUMAtriptan 2023-0 Yes [id number] 100mg Take 1 [facility] 100 mg 6-05 [...] days in a week. SUMAtriptan 2023-0 Yes [id number] 100mg Take 1 [facility] 100 mg 6-05 [...] days in a week. SUMAtriptan 2023-0 Yes [id number] 100mg Take 1 [facility] 100 mg 6-05 [...] days in a week. SUMAtriptan 2023-0 Yes [id number] 100mg Take 1 [facility] 100 mg 6-05 [...] days in a week. SUMAtriptan 2023-0 Yes [id number] 100mg Take 1 [facility] 100 mg 6-05 [...] days in a week. SUMAtriptan 2023-0 Yes [id number] 100mg Take 1 [facility] 100 mg 6-05 [...] days in a week. SUMAtriptan 2023-0 Yes [id number] 100mg Take 1 [facility] 100 mg 6-05 [...] days in a week. SUMAtriptan 2023-0 Yes [id number] 100mg Take 1 [facility] 100 mg 6-05 [...] days in a week. SUMAtriptan 2023-0 Yes [id number] 100mg Take 1 [facility] 100 mg 6-05 [...] days in a week. SUMAtriptan 2023-0 Yes [id number] 100mg Take 1 [facility] 100 mg 6-05 [...] days in a week. SUMAtriptan 2023-0 Yes [id number] 100mg Take 1 [facility] 100 mg 6-05 [...] days in a week. SUMAtriptan 2023-0 Yes [id number] 100mg Take 1 [facility] 100 mg 6-05 [...] days in a week. SUMAtriptan 2023-0 Yes [id number] 100mg Take 1 [facility] 100 mg 6-05 [...] days in a week. SUMAtriptan 2023-0 Yes [id number] 100mg Take 1 [facility] 100 mg 6-05 [...] days in a week. SUMAtriptan 2023-0 Yes [id number] 100mg Take 1 [facility] 100 mg 6-05 [...] days in a week. SUMAtriptan 2023-0 Yes [id number] 100mg Take 1 [facility] 100 mg 6-05 [...] days in a week. SUMAtriptan 2023-0 Yes [id number] 100mg Take 1 [facility] 100 mg 6-05 [...] days in a week. SUMAtriptan 2023-0 Yes [id number] 100mg Take 1 [facility] 100 mg 6-05 [...] days in a week. SUMAtriptan 2023-0 Yes [id number] 100mg Take 1 [facility] 100 mg 6-05 [...] days in a week. SUMAtriptan 2023-0 Yes [id number] 100mg Take 1 [facility] 100 mg 6-05 [...] days in a week. SUMAtriptan 2023-0 Yes [id number] 100mg Take 1 [facility] 100 mg 6-05 [...] days in a week. SUMAtriptan 2023-0 Yes [id number] 100mg Take 1 [facility] 100 mg 6-05 [...] days in a week. SUMAtriptan 2023-0 Yes [id number] 100mg Take 1 [facility] 100 mg 6-05 [...] days in a week. SUMAtriptan 2023-0 Yes [id number] 100mg Take 1 [facility] 100 mg 6-05 [...] days in a week. SUMAtriptan 2023-0 Yes [id number] 100mg Take 1 [facility] 100 mg 6-05 [...] days in a week. SUMAtriptan 2023-0 Yes [id number] 100mg Take 1 [facility] 100 mg 6-05 [...] days in a week. SUMAtriptan 2023-0 Yes [id number] 100mg Take 1 [facility] 100 mg 6-05 [...] days in a week. SUMAtriptan 2023-0 Yes [id number] 100mg Take 1 [facility] 100 mg 6-05 [...] days in a week. SUMAtriptan 2023-0 Yes [id number] 100mg Take 1 [facility] 100 mg 6-05 [...] days in a week. SUMAtriptan 2023-0 Yes [id number] 100mg Take 1 [facility] 100 mg 6-05 [...] days in a week. SUMAtriptan 2023-0 Yes [id number] 100mg Take 1 [facility] 100 mg 6-05 [...] days in a week. SUMAtriptan 2023-0 Yes [id number] 100mg Take 1 [facility] 100 mg 6-05 [...] days in a week. SUMAtriptan 2023-0 Yes [id number] 100mg Take 1 [facility] 100 mg 6-05 [...] days in a week. SUMAtriptan 2023-0 Yes [id number] 100mg Take 1 [facility] 100 mg 6-05 [...] days in a week. SUMAtriptan 2023-0 Yes [id number] 100mg Take 1 [facility] 100 mg 6-05 [...] days in a week. SUMAtriptan 2023-0 Yes [id number] 100mg Take 1 [facility] 100 mg 6-05 [...] days in a week. SUMAtriptan 2023-0 Yes [id number] 100mg Take 1 [facility] 100 mg 6-05 [...] days in a week. SUMAtriptan 2023-0 Yes [id number] 100mg Take 1 [facility] 100 mg 6-05 [...] days in a week. SUMAtriptan 2023-0 Yes [id number] 100mg Take 1 [facility] 100 mg 6-05 [...] days in a week. SUMAtriptan 2023-0 Yes [id number] 100mg Take 1 [facility] 100 mg 6-05 [...] days in a week. benzonatate 2023-0 Yes [id number] 100mg Take 1 [facility] 100 mg 5-22 capsule by ity of capsule 00:00: mouth 3 [place] 00 (three) Medical times Branch daily as needed for Cough. benzonatate 2023-0 Yes [id number] 100mg Take 1 [facility] 100 mg 5-22 capsule by ity of capsule 00:00: mouth 3 [place] 00 (three) Medical times Branch daily as needed for Cough. benzonatate 2023-0 Yes [id number] 100mg Take 1 [facility] 100 mg 5-22 capsule by ity of capsule 00:00: mouth 3 [place] 00 (three) Medical times Branch daily as needed for Cough. benzonatate 2023-0 Yes [id number] 100mg Take 1 [facility] 100 mg 5-22 capsule by ity of capsule 00:00: mouth 3 [place] 00 (three) Medical times Branch daily as needed for Cough. benzonatate 2023-0 Yes [id number] 100mg Take 1 [facility] 100 mg 5-22 capsule by ity of capsule 00:00: mouth 3 [place] 00 (three) Medical times Branch daily as [...] Branch triamcinolo 3-0 Yes 1{appli Apply [address] [facility] ne 12-07 cator} Applicator ity of acetonide 00:00: to area(s) [place] 0.1 % cream 00 as needed. Me dical Branch azithromyci 3-0 Yes 260mg Take 6.5 U nivers n 200 mg/5 5-22 mL by ity of mL 00:00: mouth in [place] suspension 00 the Medical morning. Branch triamcinolo 3-0 Yes 1{appli Apply [address] [facility] ne 12-07 cator} Applicator ity of acetonide 00:00: to area(s) [place] 0.1 % cream 00 as needed. Me dical Branch azithromyci 3-0 Yes 260mg Take 6.5 U nivers n 200 mg/5 5-22 mL by ity of mL 00:00: mouth in [place] suspension 00 the Medical morning. Branch triamcinolo 3-0 Yes 1{appli Apply [address] [facility] ne 12-07 cator} Applicator ity of acetonide 00:00: to area(s) [place] 0.1 % cream 00 as needed. Me dical Branch azithromyci 3-0 Yes 260mg Take 6.5 U nivers n 200 mg/5 5-22 mL by ity of mL 00:00: mouth in [place] suspension 00 the Medical morning. Branch triamcinolo 3-0 Yes 1{appli Apply [address] [facility] ne 522 cator} Applicator ity of acetonide [...] as needed. Me dical Branch benzonatate 3-0 2022- No [id number] 100mg Take 1 [facility] 100 mg 5-22 06-05 capsule by ity of capsule 00:00: 00:00 mouth 3 [place] 00 :00 (three) Medical times Branch daily as needed for Cough. benzonatate 3-0 2022- No [id number] 100mg Take 1 [facility] 100 mg 5-22 06-05 capsule by ity of capsule 00:00: 00:00 mouth 3 [place] 00 :00 (three) Medical times Branch daily as needed for Cough. benzonatate 2022-0 2022- No [id number] 100mg Take 1 [facility] 100 mg 12-0705 capsule by ity of capsule 00:00: 00:00 mouth 3 [place] 00 :00 (three) Medical times Branch daily as needed for Cough. NYSTOP 3-0 Yes 1{dose} Apply 1 Un[facility] [...] powder 00 the Medical morning. Branch NYSTOP 2022-0 Yes 1{dose} Apply 1 [facility] rs 100,000 [...] powder 00 the Medical morning. Branch cariprazine 3-0 Yes 1{capsu Take 1 U nivers (VRAYLAR) 3 5-04 le} capsule by it y of mg Cap 11:09: mouth in [address] and 1 capsule in the evening. cariprazine 2023-0 Yes 1{capsu Take 1 U nivers (VRAYLAR) 3 5-04 le} capsule by it y of mg Cap 11:09: mouth in [address] and 1 capsule in the evening. cariprazine 3-0 Yes 1{capsu Take 1 U nivers (VRAYLAR) 3 5-04 le} capsule by it y of mg Cap 11:09: mouth in [address] and 1 capsule in the evening. cariprazine 3-0 Yes 1{capsu Take 1 U nivers (VRAYLAR) 3 5-04 le} capsule by it y of mg Cap 11:09: mouth in [address] and 1 capsule in the evening. cariprazine 3-0 Yes 1{capsu Take 1 U nivers (VRAYLAR) 3 5-04 le} capsule by it y of mg Cap 11:09: mouth in [address] and 1 capsule in the evening. cariprazine 2023-0 Yes 1{capsu Take 1 U nivers (VRAYLAR) 3 5-04 le} capsule by it y of mg Cap 11:09: mouth in [address] and 1 capsule in the evening. cariprazine 3-0 Yes 1{capsu Take 1 U nivers (VRAYLAR) 3 5-04 le} capsule by it y of mg Cap 11:09: mouth in [address] and 1 capsule in the evening. cariprazine 2023-0 Yes 1{capsu Take 1 U nivers (VRAYLAR) 3 5-04 le} capsule by it y of mg Cap 11:09: mouth in [address] and 1 capsule in the evening. cariprazine 2023-0 Yes 1{capsu Take 1 U nivers (VRAYLAR) 3 5-04 le} capsule by it y of mg Cap 11:09: mouth in [address] and 1 capsule in the evening. cariprazine 2023-0 Yes 1{capsu Take 1 U nivers (VRAYLAR) 3 5-04 le} capsule by it y of mg Cap 11:09: mouth in [address] and 1 capsule in the evening. cariprazine 2023-0 Yes 1{capsu Take 1 U nivers (VRAYLAR) 3 5-04 le} capsule by it y of mg Cap 11:09: mouth in [address] and 1 capsule in the evening. cariprazine 2023-0 Yes 1{capsu Take 1 U nivers (VRAYLAR) 3 5-04 le} capsule by it y of mg Cap 11:09: mouth in [address] and 1 capsule in the evening. cariprazine 2023-0 Yes 1{capsu Take 1 U nivers (VRAYLAR) 3 5-04 le} capsule by it y of mg Cap 11:09: mouth in [address] and 1 capsule in the evening. cariprazine 2023-0 Yes 1{capsu Take 1 U nivers (VRAYLAR) 3 5-04 le} capsule by it y of mg Cap 11:09: mouth in [address] and 1 capsule in the evening. cariprazine 2023-0 Yes 1{capsu Take 1 U nivers (VRAYLAR) 3 5-04 le} capsule by it y of mg Cap 11:09: mouth in [address] and 1 capsule in the evening. cariprazine 2023-0 Yes 1{capsu Take 1 U nivers (VRAYLAR) 3 5-04 le} capsule by it y of mg Cap 11:09: mouth in [address] and 1 capsule in the evening. cariprazine 2023-0 Yes 1{capsu Take 1 U nivers (VRAYLAR) 3 5-04 le} capsule by it y of mg Cap 11:09: mouth in [address] and 1 capsule in the evening. cariprazine 2023-0 Yes 1{capsu Take 1 U nivers (VRAYLAR) 3 5-04 le} capsule by it y of mg Cap 11:09: mouth in [address] and 1 capsule in the evening. cariprazine 2023-0 Yes 1{capsu Take 1 U nivers (VRAYLAR) 3 5-04 le} capsule by it y of mg Cap 11:09: mouth in [address] and 1 capsule in the evening. cariprazine 2023-0 Yes 1{capsu Take 1 U nivers (VRAYLAR) 3 5-04 le} capsule by it y of mg Cap 11:09: mouth in [address] and 1 capsule in the evening. cariprazine 2023-0 Yes 1{capsu Take 1 U nivers (VRAYLAR) 3 5-04 le} capsule by it y of mg Cap 11:09: mouth in [address] and 1 capsule in the evening. cariprazine 2023-0 Yes 1{capsu Take 1 U nivers (VRAYLAR) 3 5-04 le} capsule by it y of mg Cap 11:09: mouth in [address] and 1 capsule in the evening. cariprazine 2023-0 Yes 1{capsu Take 1 U nivers (VRAYLAR) 3 5-04 le} capsule by it y of mg Cap 11:09: mouth in [address] and 1 capsule in the evening. cariprazine 2023-0 Yes 1{capsu Take 1 U nivers (VRAYLAR) 3 5-04 le} capsule by it y of mg Cap 11:09: mouth in [address] and 1 capsule in the evening. cariprazine 2023-0 Yes 1{capsu Take 1 U nivers (VRAYLAR) 3 5-04 le} capsule by it y of mg Cap 11:09: mouth in [address] and 1 capsule in the evening. cariprazine 2023-0 Yes 1{capsu Take 1 U nivers (VRAYLAR) 3 5-04 le} capsule by it y of mg Cap 11:09: mouth in [address] and 1 capsule in the evening. cariprazine 2023-0 Yes 1{capsu Take 1 U nivers (VRAYLAR) 3 5-04 le} capsule by it y of mg Cap 11:09: mouth in [address] and 1 capsule in the evening. cariprazine 2023-0 Yes 1{capsu Take 1 U nivers (VRAYLAR) 3 5-04 le} capsule by it y of mg Cap 11:09: mouth in [address] and 1 capsule in the evening. cariprazine 2023-0 Yes 1{capsu Take 1 U nivers (VRAYLAR) 3 5-04 le} capsule by it y of mg Cap 11:09: mouth in [address] and 1 capsule in the evening. cariprazine 2023-0 Yes 1{capsu Take 1 U nivers (VRAYLAR) 3 5-04 le} capsule by it y of mg Cap 11:09: mouth in [address] [address] and 1 capsule in the evening. cariprazine 2023-0 Yes 1{capsu Take 1 [facility] (VRAYLAR) 3 5-04 le} capsule by it y of mg Cap 11:09: mouth in [address] and 1 capsule in the evening. cariprazine 2023-0 Yes 1{capsu Take 1 [facility] (VRAYLAR) 3 5-04 le} capsule by it y of mg Cap 11:09: mouth in [address] and 1 capsule in the evening. cariprazine 2023-0 Yes 1{capsu Take 1 [facility] (VRAYLAR) 3 5-04 le} capsule by it y of mg Cap 11:09: mouth in [address] and 1 capsule in the evening. cariprazine 2023-0 Yes 1{capsu Take 1 [facility] (VRAYLAR) 3 5-04 le} capsule by it y of mg Cap 11:09: mouth in [address] and 1 capsule in the evening. cariprazine 2023-0 Yes 1{capsu Take 1 [facility] (VRAYLAR) 3 5-04 le} capsule by it y of mg Cap 11:09: mouth in [address] and 1 capsule in the evening. cariprazine 2023-0 Yes 1{capsu Take 1 [facility] (VRAYLAR) 3 5-04 le} capsule by it y of mg Cap 11:09: mouth in [address] and 1 capsule in the evening. cariprazine 2023-0 Yes 1{capsu Take 1 [facility] (VRAYLAR) 3 5-04 le} capsule by it y of mg Cap 11:09: mouth in [place] 34 the Medical morning Branch and 1 capsule in the evening. dexamethaso 2023-0 Yes [id number] 12mg Take 120 [facility] 0.1 5-01 mL by ity of mg/mL LOW 00:00: mouth in [facility] 00 the Medical ON solution morning. Bran ch ipratropium 2023-0 Yes [id number] .5mg Inhale 2.5 [facility] 0.02 % 5-01 mL every 6 ity of nebulizer 00:00: (six) [place] solution 00 hours as Medical needed for Branch Wheezing or Shortness of Breath. dexamethaso 2023-0 Yes [id number] 12mg Take 120 [facility] ne 0.1 5-01 mL by ity of mg/mL LOW 00:00: mouth in [facility] 00 the Medical ON solution morning. Bran ch ipratropium 2023-0 Yes [id number] .5mg Inhale 2.5 [facility] 0.02 % 5-01 mL every 6 ity of nebulizer 00:00: (six) [place] solution 00 hours as Medical needed for Branch Wheezing or Shortness of Breath. dexamethaso 2023-0 Yes [id number] 12mg Take 120 [facility] ne 0.1 5-01 mL by ity of mg/mL LOW 00:00: mouth in [facility] 00 the Medical ON solution morning. Bran ch ipratropium 2023-0 Yes [id number] .5mg Inhale 2.5 [facility] 0.02 % 5-01 mL every 6 ity of nebulizer 00:00: (six) [place] solution 00 hours as Medical needed for Branch Wheezing or Shortness of Breath. dexamethaso 2023-0 Yes [id number] 12mg Take 120 [facility] ne 0.1 5-01 mL by ity of mg/mL LOW 00:00: mouth in [facility] 00 the Medical ON solution morning. Bran ch ipratropium 2023-0 Yes [id number] .5mg Inhale 2.5 [facility] 0.02 % 5-01 mL every 6 ity of nebulizer 00:00: (six) [place] solution 00 hours as Medical needed for Branch Wheezing or Shortness of Breath. dexamethaso 2023-0 Yes [id number] 12mg Take 120 [facility] ne 0.1 5-01 mL by ity of mg/mL LOW 00:00: [place] [facility] 00 the Medical ON solution morning. Bran ch ipratropium 2023-0 Yes [id number] .5mg Inhale 2.5 [facility] 0.02 % 5-01 mL every 6 ity of nebulizer 00:00: (six) [place] solution 00 hours as Medical needed for Branch Wheezing or Shortness of Breath. dexamethaso 2023-0 Yes [id number] 12mg Take 120 [facility] ne 0.1 5-01 mL by ity of mg/mL LOW 00:00: [place] [facility] 00 the Medical ON solution morning. Bran ch ipratropium 2023-0 Yes [id number] .5mg Inhale 2.5 [facility] 0.02 % 5-01 mL every 6 ity of nebulizer 00:00: (six) [place] solution 00 hours as Medical needed for Branch Wheezing or Shortness of Breath. dexamethaso 2023-0 Yes [id number] 12mg Take 120 [facility] ne 0.1 5-01 mL by ity of mg/mL LOW 00:00: mouth [place] [facility] 00 the Medical ON solution morning. Bran ch ipratropium 2023-0 Yes [id number] .5mg Inhale 2.5 [facility] 0.02 % 5-01 mL every 6 ity of nebulizer 00:00: (six) [place] solution 00 hours as Medical needed for Branch Wheezing or Shortness of Breath. dexamethaso 2023-0 Yes [id number] 12mg Take 120 [facility] ne 0.1 5-01 mL by ity of mg/mL LOW 00:00: mouth [place] [facility] 00 the Medical ON solution morning. Bran ch ipratropium 2023-0 Yes [id number] .5mg Inhale 2.5 [facility] 0.02 % 5-01 mL every 6 ity of nebulizer 00:00: (six) [place] solution 00 hours as Medical needed for Branch Wheezing or Shortness of Breath. dexamethaso 2023-0 Yes [id number] 12mg Take 120 [facility] ne 0.1 5-01 mL by ity of mg/mL LOW 00:00: mouth in [place] [facility] 00 the Medical ON solution morning. Bran ch ipratropium 2023-0 Yes [id number] .5mg Inhale 2.5 [facility] 0.02 % 5-01 mL every 6 ity of nebulizer 00:00: (six) [place] solution 00 hours as Medical needed for Branch Wheezing or Shortness of Breath. dexamethaso 2023-0 Yes [id number] 12mg Take 120 [facility] ne 0.1 5-01 mL by ity of mg/mL LOW 00:00: mouth in [place] [facility] 00 the Medical ON solution morning. Bran ch ipratropium 2023-0 Yes [id number] .5mg Inhale 2.5 [facility] 0.02 % 5-01 mL every 6 ity of nebulizer 00:00: (six) [place] solution 00 hours as Medical needed for Branch Wheezing or Shortness of Breath. dexamethaso 2023-0 Yes [id number] 12mg Take 120 [facility] ne 0.1 5-01 mL by ity of mg/mL LOW 00:00: mouth [place] [facility] 00 the Medical ON solution morning. Bran ch ipratropium 2023-0 Yes [id number] .5mg Inhale 2.5 [facility] 0.02 % 5-01 mL every 6 ity of nebulizer 00:00: (six) [place] solution 00 hours as Medical needed for Branch Wheezing or Shortness of Breath. dexamethaso 2023-0 Yes [id number] 12mg Take 120 [facility] ne 0.1 5-01 mL by ity of mg/mL LOW 00:00: mouth [place] [facility] 00 the Medical ON solution morning. Bran ch ipratropium 2023-0 Yes [id number] .5mg Inhale 2.5 [facility] 0.02 % 5-01 mL every 6 ity of nebulizer 00:00: (six) [place] solution 00 hours as Medical needed for Branch Wheezing or Shortness of Breath. dexamethaso 2023-0 Yes [id number] 12mg Take 120 [facility] ne 0.1 5-01 mL by ity of mg/mL LOW 00:00: mouth [place] [facility] 00 the Medical ON solution morning. Bran ch ipratropium 2023-0 Yes [id number] .5mg Inhale 2.5 [facility] 0.02 % 5-01 mL every 6 ity of nebulizer 00:00: (six) [place] solution 00 hours as Medical needed for Branch Wheezing or Shortness of Breath. dexamethaso 2023-0 Yes [id number] 12mg Take 120 [facility] ne 0.1 5-01 mL by ity of mg/mL LOW 00:00: mouth in [place] [facility] 00 the Medical ON solution morning. Bran ch ipratropium 2023-0 Yes [id number] .5mg Inhale 2.5 [facility] 0.02 % 5-01 mL every 6 ity of nebulizer 00:00: (six) [place] solution 00 hours as Medical needed for Branch Wheezing or Shortness of Breath. dexamethaso 2023-0 Yes [id number] 12mg Take 120 [facility] ne 0.1 5-01 mL by ity of mg/mL LOW 00:00: mouth [place] [facility] 00 the Medical ON solution morning. Bran ch ipratropium 2023-0 Yes [id number] .5mg Inhale 2.5 [facility] 0.02 % 5-01 mL every 6 ity of nebulizer 00:00: (six) [place] solution 00 hours as Medical needed for Branch Wheezing or Shortness of Breath. dexamethaso 2023-0 Yes [id number] 12mg Take 120 [facility] ne 0.1 5-01 mL by ity of mg/mL LOW 00:00: mouth [place] [facility] 00 the Medical ON solution morning. Bran ch ipratropium 2023-0 Yes [id number] .5mg Inhale 2.5 [facility] 0.02 % 5-01 mL every 6 ity of nebulizer 00:00: (six) [place] solution 00 hours as Medical needed for Branch Wheezing or Shortness of Breath. dexamethaso 2023-0 Yes [id number] 12mg Take 120 [facility] ne 0.1 5-01 mL by ity of mg/mL LOW 00:00: mouth in [place] [facility] 00 the Medical ON solution morning. Bran ch ipratropium 2023-0 Yes [id number] .5mg Inhale 2.5 [facility] 0.02 % 5-01 mL every 6 ity of nebulizer 00:00: (six) [place] solution 00 hours as Medical needed for Branch Wheezing or Shortness of Breath. dexamethaso 2023-0 Yes [id number] 12mg Take 120 [facility] ne 0.1 5-01 mL by ity of mg/mL LOW 00:00: mouth [place] [facility] 00 the Medical ON solution morning. Bran ch ipratropium 2023-0 Yes [id number] .5mg Inhale 2.5 [facility] 0.02 % 5-01 mL every 6 ity of nebulizer 00:00: (six) [place] solution 00 hours as Medical needed for Branch Wheezing or Shortness of Breath. dexamethaso 2023-0 Yes [id number] 12mg Take 120 [facility] ne 0.1 5-01 mL by ity of mg/mL LOW 00:00: mouth in [place] [facility] 00 the Medical ON solution morning. Bran ch ipratropium 2023-0 Yes [id number] .5mg Inhale 2.5 [facility] 0.02 % 5-01 mL every 6 ity of nebulizer 00:00: (six) [place] solution 00 hours as Medical needed for Branch Wheezing or Shortness of Breath. dexamethaso 2023-0 Yes [id number] 12mg Take 120 [facility] ne 0.1 5-01 mL by ity of mg/mL LOW 00:00: mouth [place] [facility] 00 the Medical ON solution morning. Bran ch ipratropium 2023-0 Yes [id number] .5mg Inhale 2.5 [facility] 0.02 % 5-01 mL every 6 ity of nebulizer 00:00: (six) [place] solution 00 hours as Medical needed for Branch Wheezing or Shortness of Breath. dexamethaso 2023-0 Yes [id number] 12mg Take 120 [facility] ne 0.1 5-01 mL by ity of mg/mL LOW 00:00: mouth in [place] [facility] 00 the Medical ON solution morning. Bran ch ipratropium 2023-0 Yes [id number] .5mg Inhale 2.5 [facility] 0.02 % 5-01 mL every 6 ity of nebulizer 00:00: (six) [place] solution 00 hours as Medical needed for Branch Wheezing or Shortness of Breath. dexamethaso 2023-0 Yes [id number] 12mg Take 120 [facility] ne 0.1 5-01 mL by ity of mg/mL LOW 00:00: mouth [place] [facility] 00 the Medical ON solution morning. Bran ch ipratropium 2023-0 Yes [id number] .5mg Inhale 2.5 [facility] 0.02 % 5-01 mL every 6 ity of nebulizer 00:00: (six) [place] solution 00 hours as Medical needed for Branch Wheezing or Shortness of Breath. dexamethaso 2023-0 Yes [id number] 12mg Take 120 [facility] ne 0.1 5-01 mL by ity of mg/mL LOW 00:00: mouth in [place] [facility] 00 the Medical ON solution morning. Bran ch ipratropium 2023-0 Yes [id number] .5mg Inhale 2.5 [facility] 0.02 % 5-01 mL every 6 ity of nebulizer 00:00: (six) [place] solution 00 hours as Medical needed for Branch Wheezing or Shortness of Breath. dexamethaso 2023-0 Yes [id number] 12mg Take 120 [facility] ne 0.1 5-01 mL by ity of mg/mL LOW 00:00: mouth in [place] [facility] 00 the Medical ON solution morning. Bran ch ipratropium 2023-0 Yes [id number] .5mg Inhale 2.5 [facility] 0.02 % 5-01 mL every 6 ity of nebulizer 00:00: (six) [place] solution 00 hours as Medical needed for Branch Wheezing or Shortness of Breath. dexamethaso 2023-0 Yes [id number] 12mg Take 120 [facility] ne 0.1 5-01 mL by ity of mg/mL LOW 00:00: mouth in [place] [facility] 00 the Medical ON solution morning. Bran ch ipratropium 2023-0 Yes [id number] .5mg Inhale 2.5 [facility] 0.02 % 5-01 mL every 6 ity of nebulizer 00:00: (six) [place] solution 00 hours as Medical needed for Branch Wheezing or Shortness of Breath. dexamethaso 2023-0 Yes [id number] 12mg Take 120 [facility] ne 0.1 5-01 mL by ity of mg/mL LOW 00:00: mouth in [place] [facility] 00 the Medical ON solution morning. Bran ch ipratropium 2023-0 Yes [id number] .5mg Inhale 2.5 [facility] 0.02 % 5-01 mL every 6 ity of nebulizer 00:00: (six) [place] solution 00 hours as Medical needed for Branch Wheezing or Shortness of Breath. dexamethaso 2023-0 Yes [id number] 12mg Take 120 [facility] ne 0.1 5-01 mL by ity of mg/mL LOW 00:00: mouth in [place] [facility] 00 the Medical ON solution morning. Bran ch ipratropium 2023-0 Yes [id number] .5mg Inhale 2.5 [facility] 0.02 % 5-01 mL every 6 ity of nebulizer 00:00: (six) [place] solution 00 hours as Medical needed for Branch Wheezing or Shortness of Breath. dexamethaso 2023-0 Yes [id number] 12mg Take 120 [facility] ne 0.1 5-01 mL by ity of mg/mL LOW 00:00: mouth in [place] [facility] 00 the Medical ON solution morning. Bran ch ipratropium 2023-0 Yes [id number] .5mg Inhale 2.5 [facility] 0.02 % 5-01 mL every 6 ity of nebulizer 00:00: (six) [place] solution 00 hours as Medical needed for Branch Wheezing or Shortness of Breath. ipratropium 2023-0 Yes [id number] .5mg Inhale 2.5 [facility] 0.02 % 5-01 mL every 6 ity of nebulizer 00:00: (six) [place] solution 00 hours as Medical needed for Branch Wheezing or Shortness of Breath. ipratropium 2023-0 Yes [id number] .5mg Inhale 2.5 [facility] 0.02 % 5-01 mL every 6 ity of nebulizer 00:00: (six) [place] solution 00 hours as Medical needed for Branch Wheezing or Shortness of Breath. ipratropium 2023-0 Yes [id number] .5mg Inhale 2.5 [facility] 0.02 % 5-01 mL every 6 ity of nebulizer 00:00: (six) [place] solution 00 hours as Medical needed for Branch Wheezing or Shortness of Breath. ipratropium 2023-0 Yes [id number] .5mg Inhale 2.5 [facility] 0.02 % 5-01 mL every 6 ity of nebulizer 00:00: (six) [place] solution 00 hours as Medical needed for Branch Wheezing or Shortness of Breath. ipratropium 2023-0 Yes [id number] .5mg Inhale 2.5 [facility] 0.02 % 5-01 mL every 6 ity of nebulizer 00:00: (six) [place] solution 00 hours as Medical needed for Branch Wheezing or Shortness of Breath. ipratropium 2023-0 Yes [id number] .5mg Inhale 2.5 Univers 0.02 % 5-01 mL every 6 ity of nebulizer 00:00: (six) [place] solution 00 hours as Medical needed for Branch Wheezing or Shortness of Breath. ipratropium 2023-0 Yes [id number] .5mg Inhale 2.5 [facility] 0.02 % 5-01 mL every 6 ity of nebulizer 00:00: (six) [place] solution 00 hours as Medical needed for Branch Wheezing or Shortness of Breath. ipratropium 2023-0 Yes [id number] .5mg Inhale 2.5 Univers 0.02 % 5-01 mL every 6 ity of nebulizer 00:00: (six) [place] solution 00 hours as Medical needed for Branch Wheezing or Shortness of Breath. ipratropium 2023-0 Yes [id number] .5mg Inhale 2.5 [facility] 0.02 % 5-01 mL every 6 ity of nebulizer 00:00: (six) [place] solution 00 hours as Medical needed for Branch Wheezing or Shortness of Breath. ipratropium 2023-0 Yes [id number] .5mg Inhale 2.5 [facility] 0.02 % 5-01 mL every 6 ity of nebulizer 00:00: (six) [place] solution 00 hours as Medical needed for Branch Wheezing or Shortness of Breath. ipratropium 2023-0 Yes [id number] .5mg Inhale 2.5 [facility] 0.02 % 5-01 mL every 6 ity of nebulizer 00:00: (six) [place] solution 00 hours as Medical needed for Branch Wheezing or Shortness of Breath. ipratropium 2023-0 Yes [id number] .5mg Inhale 2.5 [facility] 0.02 % 5-01 mL every 6 ity of nebulizer 00:00: (six) [place] solution 00 hours as Medical needed for Branch Wheezing or Shortness of Breath. ipratropium 2023-0 Yes [id number] .5mg Inhale 2.5 [facility] 0.02 % 5-01 mL every 6 ity of nebulizer 00:00: (six) [place] solution 00 hours as Medical needed for Branch Wheezing or Shortness of Breath. ipratropium 2023-0 Yes [id number] .5mg Inhale 2.5 [facility] 0.02 % 5-01 mL every 6 ity of nebulizer 00:00: (six) [place] solution 00 hours as Medical needed for Branch Wheezing or Shortness of Breath. ipratropium 2023-0 Yes [id number] .5mg Inhale 2.5 [facility] 0.02 % 5-01 mL every 6 ity of nebulizer 00:00: (six) [place] solution 00 hours as Medical needed for Branch Wheezing or Shortness of Breath. ipratropium 2023-0 Yes [id number] .5mg Inhale 2.5 [facility] 0.02 % 5-01 mL every 6 ity of nebulizer 00:00: (six) [place] solution 00 hours as Medical needed for Branch Wheezing or Shortness of Breath. ipratropium 2023-0 Yes [id number] .5mg Inhale 2.5 [facility] 0.02 % 5-01 mL every 6 ity of nebulizer 00:00: (six) [place] solution 00 hours as Medical needed for Branch Wheezing or Shortness of Breath. ipratropium 2023-0 Yes [id number] .5mg Inhale 2.5 [facility] 0.02 % 5-01 mL every 6 ity of nebulizer 00:00: (six) [place] solution 00 hours as Medical needed for Branch Wheezing or Shortness of Breath. ipratropium 2023-0 Yes [id number] .5mg Inhale 2.5 [facility] 0.02 % 5-01 mL every 6 ity of nebulizer 00:00: (six) [place] solution 00 hours as Medical needed for Branch Wheezing or Shortness of Breath. ipratropium 2023-0 Yes [id number] .5mg Inhale 2.5 [facility] 0.02 % 5-01 mL every 6 ity of nebulizer 00:00: (six) [place] solution 00 hours as Medical needed for Branch Wheezing or Shortness of Breath. ipratropium 2023-0 Yes [id number] .5mg Inhale 2.5 [facility] 0.02 % 5-01 mL every 6 ity of nebulizer 00:00: (six) [place] solution 00 hours as Medical needed for Branch Wheezing or Shortness of Breath. ipratropium 2023-0 Yes [id number] .5mg Inhale 2.5 [facility] 0.02 % 5-01 mL every 6 ity of nebulizer 00:00: (six) [place] solution 00 hours as Medical needed for Branch Wheezing or Shortness of Breath. ipratropium 2023-0 Yes [id number] .5mg Inhale 2.5 [facility] 0.02 % 5-01 mL every 6 ity of nebulizer 00:00: (six) [place] solution 00 hours as Medical needed for Branch Wheezing or Shortness of Breath. ipratropium 2023-0 Yes [id number] .5mg Inhale 2.5 [facility] 0.02 % 5-01 mL every 6 ity of nebulizer 00:00: (six) [place] solution 00 hours as Medical needed for Branch Wheezing or Shortness of Breath. ipratropium 2023-0 Yes [id number] .5mg Inhale 2.5 [facility] 0.02 % 5-01 mL every 6 ity of nebulizer 00:00: (six) [place] solution 00 hours as Medical needed for Branch Wheezing or Shortness of Breath. ipratropium 2023-0 Yes [id number] .5mg Inhale 2.5 [facility] 0.02 % 5-01 mL every 6 ity of nebulizer 00:00: (six) [place] solution 00 hours as Medical needed for Branch Wheezing or Shortness of Breath. ipratropium 2023-0 Yes [id number] .5mg Inhale 2.5 [facility] 0.02 % 5-01 mL every 6 ity of nebulizer 00:00: (six) [place] solution 00 hours as Medical needed for Branch Wheezing or Shortness of Breath. ipratropium 2023-0 Yes [id number] .5mg Inhale 2.5 [facility] 0.02 % 5-01 mL every 6 ity of nebulizer 00:00: (six) [place] solution 00 hours as Medical needed for Branch Wheezing or Shortness of Breath. ipratropium 2023-0 Yes [id number] .5mg Inhale 2.5 [facility] 0.02 % 5-01 mL every 6 ity of nebulizer 00:00: (six) [place] solution 00 hours as Medical needed for Branch Wheezing or Shortness of Breath. ipratropium 2023-0 Yes [id number] .5mg Inhale 2.5 [facility] 0.02 % 5-01 mL every 6 ity of nebulizer 00:00: (six) [place] solution 00 hours as Medical needed for Branch Wheezing or Shortness of Breath. ipratropium 2023-0 Yes [id number] .5mg Inhale 2.5 [facility] 0.02 % 5-01 mL every 6 ity of nebulizer 00:00: (six) [place] solution 00 hours as Medical needed for Branch Wheezing or Shortness of Breath. ipratropium 2023-0 Yes [id number] .5mg Inhale 2.5 [facility] 0.02 % 5-01 mL every 6 ity of nebulizer 00:00: (six) [place] solution 00 hours as Medical needed for Branch Wheezing or Shortness of Breath. ipratropium 2023-0 Yes [id number] .5mg Inhale 2.5 [facility] 0.02 % 5-01 mL every 6 ity of nebulizer 00:00: (six) [place] solution 00 hours as Medical needed for Branch Wheezing or Shortness of Breath. ipratropium 2023-0 Yes [id number] .5mg Inhale 2.5 [facility] 0.02 % 5-01 mL every 6 ity of nebulizer 00:00: (six) [place] solution 00 hours as Medical needed for Branch Wheezing or Shortness of Breath. ipratropium 2023-0 Yes [id number] .5mg Inhale 2.5 [facility] 0.02 % 5-01 mL every 6 ity of nebulizer 00:00: (six) [place] solution 00 hours as Medical needed for Branch Wheezing or Shortness of Breath. ipratropium 2023-0 Yes [id number] .5mg Inhale 2.5 [facility] 0.02 % 5-01 mL every 6 ity of nebulizer 00:00: (six) [place] solution 00 hours as Medical needed for Branch Wheezing or Shortness of Breath. ipratropium 2023-0 Yes [id number] .5mg Inhale 2.5 [facility] 0.02 % 5-01 mL every 6 ity of nebulizer 00:00: (six) [place] solution 00 hours as Medical needed for Branch Wheezing or Shortness of Breath. ipratropium 2023-0 Yes [id number] .5mg Inhale 2.5 [facility] 0.02 % 5-01 mL every 6 ity of nebulizer 00:00: (six) [place] solution 00 hours as Medical needed for Branch Wheezing or Shortness of Breath. ipratropium 2023-0 Yes [id number] .5mg Inhale 2.5 [facility] 0.02 % 5-01 mL every 6 ity of nebulizer 00:00: (six) [place] solution 00 hours as Medical needed for Branch Wheezing or Shortness of Breath. ipratropium 2023-0 Yes [id number] .5mg Inhale 2.5 [facility] 0.02 % 5-01 mL every 6 ity of nebulizer 00:00: (six) [place] solution 00 hours as Medical needed for Branch Wheezing or Shortness of Breath. ipratropium 2023-0 Yes [id number] .5mg Inhale 2.5 [facility] 0.02 % 5-01 mL every 6 ity of nebulizer 00:00: (six) [place] solution 00 hours as Medical needed for Branch Wheezing or Shortness of Breath. ipratropium 2023-0 Yes [id number] .5mg Inhale 2.5 [facility] 0.02 % 5-01 mL every 6 ity of nebulizer 00:00: (six) [place] solution 00 hours as Medical needed for Branch Wheezing or Shortness of Breath. ipratropium 2023-0 Yes [id number] .5mg Inhale 2.5 [facility] 0.02 % 5-01 mL every 6 ity of nebulizer 00:00: (six) [place] solution 00 hours as Medical needed for Branch Wheezing or Shortness of Breath. ipratropium 2023-0 Yes [id number] .5mg Inhale 2.5 [facility] 0.02 % 5-01 mL every 6 ity of nebulizer 00:00: (six) [place] solution 00 hours as Medical needed for Branch Wheezing or Shortness of Breath. ipratropium 2023-0 Yes [id number] .5mg Inhale 2.5 [facility] 0.02 % 5-01 mL every 6 ity of nebulizer 00:00: (six) [place] solution 00 hours as Medical needed for Branch Wheezing or Shortness of Breath. ipratropium 2023-0 Yes [id number] .5mg Inhale 2.5 [facility] 0.02 % 5-01 mL every 6 ity of nebulizer 00:00: (six) [place] solution 00 hours as Medical needed for Branch Wheezing or Shortness of Breath. ipratropium 2023-0 Yes [id number] .5mg Inhale 2.5 [facility] 0.02 % 5-01 mL every 6 ity of nebulizer 00:00: (six) [place] solution 00 hours as Medical needed for Branch Wheezing or Shortness of Breath. ipratropium 2023-0 Yes [id number] .5mg Inhale 2.5 [facility] 0.02 % 5-01 mL every 6 ity of nebulizer 00:00: (six) [place] solution 00 hours as Medical needed for Branch Wheezing or Shortness of Breath. ipratropium 2023-0 Yes [id number] .5mg Inhale 2.5 [facility] 0.02 % 5-01 mL every 6 ity of nebulizer 00:00: (six) [place] solution 00 hours as Medical needed for Branch Wheezing or Shortness of Breath. ipratropium 2023-0 Yes [id number] .5mg Inhale 2.5 [facility] 0.02 % 5-01 mL every 6 ity of nebulizer 00:00: (six) [place] solution 00 hours as Medical needed for Branch Wheezing or Shortness of Breath. ipratropium 2023-0 Yes [id number] .5mg Inhale 2.5 [facility] 0.02 % 5-01 mL every 6 ity of nebulizer 00:00: (six) [place] solution 00 hours as Medical needed for Branch Wheezing or Shortness of Breath. ipratropium 2023-0 Yes [id number] .5mg Inhale 2.5 [facility] 0.02 % 5-01 mL every 6 ity of nebulizer 00:00: (six) [place] solution 00 hours as Medical needed for Branch Wheezing or Shortness of Breath. ipratropium 2023-0 Yes [id number] .5mg Inhale 2.5 [facility] 0.02 % 5-01 mL every 6 ity of nebulizer 00:00: (six) [place] solution 00 hours as Medical needed for Branch Wheezing or Shortness of Breath. ipratropium 2023-0 Yes [id number] .5mg Inhale 2.5 [facility] 0.02 % 5-01 mL every 6 ity of nebulizer 00:00: (six) [place] solution 00 hours as Medical needed for Branch Wheezing or Shortness of Breath. ipratropium 2023-0 Yes [id number] .5mg Inhale 2.5 [facility] 0.02 % 5-01 mL every 6 ity of nebulizer 00:00: (six) [place] solution 00 hours as Medical needed for Branch Wheezing or Shortness of Breath. ipratropium 2023-0 Yes [id number] .5mg Inhale 2.5 [facility] 0.02 % 5-01 mL every 6 ity of nebulizer 00:00: (six) [place] solution 00 hours as Medical needed for Branch Wheezing or Shortness of Breath. ipratropium 2023-0 Yes [id number] .5mg Inhale 2.5 [facility] 0.02 % 5-01 mL every 6 ity of nebulizer 00:00: (six) [place] solution 00 hours as Medical needed for Branch Wheezing or Shortness of Breath. ipratropium 2023-0 Yes [id number] .5mg Inhale 2.5 [facility] 0.02 % 5-01 mL every 6 ity of nebulizer 00:00: (six) [place] solution 00 hours as Medical needed for Branch Wheezing or Shortness of Breath. ipratropium 2023-0 Yes [id number] .5mg Inhale 2.5 [facility] 0.02 % 5-01 mL every 6 ity of nebulizer 00:00: (six) [place] solution 00 hours as Medical needed for Branch Wheezing or Shortness of Breath. ipratropium 2023-0 Yes [id number] .5mg Inhale 2.5 [facility] 0.02 % 5-01 mL every 6 ity of nebulizer 00:00: (six) [place] solution 00 hours as Medical needed for Branch Wheezing or Shortness of Breath. ipratropium 2023-0 Yes [id number] .5mg Inhale 2.5 [facility] 0.02 % 5-01 mL every 6 ity of nebulizer 00:00: (six) [place] solution 00 hours as Medical needed for Branch Wheezing or Shortness of Breath. ipratropium 2023-0 Yes [id number] .5mg Inhale 2.5 [facility] 0.02 % 5-01 mL every 6 ity of nebulizer 00:00: (six) [place] solution 00 hours as Medical needed for Branch Wheezing or Shortness of Breath. dexamethaso 2023-0 2023- No [id number] 12mg Take 120 [facility] ne 0.1 5-01 06-05 mL by ity of mg/mL LOW 00:00: 00:00 mouth in [place] [facility] 00 :00 the Medical ON solution morning. [facility] dexamethaso 2022- No [id number] 12mg Take 120 [facility] ne 0.1 5- 06-05 mL by ity of mg/mL LOW 00:00: 00:00 mouth in [place] [facility] 00 :00 the Medical ON solution morning. Bran ch dexamethaso 2022- No [id number] 12mg Take 120 [facility] ne 0.1 5-01 [...] al mg [facility] 11/12/22 at 2330, THIERRY
Re ason for Anti-Infec tive: Documented Infection< br>Documen rosanne Infection Site: Respirator y
Durat ion of Therapy: Other (see Comments) benzonatate Yes [id number] 100mg Take 1 [facility] 100 mg 11-12 capsule by [facility] of capsule 00:00: mouth 3 [place] 00 (three) Medical times Branch daily as needed for Cough. azithromyci 2022- No [id number] 250mg Take 6.25 [facility] n 4-27 05-02 mL by ity of (ZITHROMAX) 00:00: 04:59 mouth in [place] 200 mg/5 mL 00 :00 the Medical suspension morning Branch for 4 days. azithromyci 2023-0 3- No [id number] 250mg Take 6.25 [facility] n 4-27 05-02 mL by ity of (ZITHROMAX) 00:00: 04:59 mouth in [place] 200 mg/5 mL 00 :00 the Medical suspension morning Branch for 4 days. azithromyci 202-0 3- No [id number] 250mg Take 6.25 [facility] n 4-27 05-02 mL by ity of (ZITHROMAX) 00:00: 04:59 mouth in [place] 200 mg/5 mL 00 :00 the Medical suspension morning Branch for 4 days. benzonatate 2023-0 3- No [id number] 100mg Take 1 [facility] 100 mg 4-27 05-01 capsule by [facility] of capsule 00:00: 00:00 mouth 3 [place] 00 :00 (three) Medical times [place] daily as needed for Cough. benzonatate 2023-0 3- No [id number] 100mg Take 1 [facility] 100 mg 4- 05-01 capsule by [facility] of capsule 00:00: 00:00 mouth 3 [place] 00 :00 (three) Medical times [place] daily as needed for Cough. omeprazole 2023-0 Yes 20mg Take 1 [facility] 20 mg 4-24 capsule by [facility] of capsule 00:00: mouth in [address] morning [place] and 1 capsule in the evening. omeprazole 2023-0 Yes 20mg Take 1 [facility] 20 mg 4-24 capsule by [facility] of capsule 00:00: mouth in [address] morning Branch and 1 capsule in the evening. omeprazole 2023-0 Yes 20mg Take 1 [facility] 20 mg 4-24 capsule by [facility] of capsule 00:00: mouth in [address] morning [place] and 1 capsule in the evening. omeprazole 2023-0 Yes 20mg Take 1 [facility] 20 mg 4-24 capsule by [facility] of capsule 00:00: mouth in [address] morning [place] and 1 capsule in the evening. omeprazole 2023-0 Yes 20mg Take 1 [facility] 20 mg 4-24 capsule by [facility] of capsule 00:00: mouth in [place] 00 the Medical morning Branch and 1 capsule in the evening. omeprazole 2023-0 Yes 20mg Take 1 [facility] 20 mg 4-24 capsule by [facility] of capsule 00:00: mouth in [place] [address] the Medical morning Branch and 1 capsule in the evening. omeprazole 2023-0 Yes 20mg Take 1 [facility] 20 mg 4-24 capsule by [facility] of capsule 00:00: mouth in [place] [address] the Medical morning Branch and 1 capsule in the evening. omeprazole 2023-0 Yes 20mg Take 1 [facility] 20 mg 4-24 capsule by [facility] of capsule 00:00: mouth in [place] [address] the Medical morning Branch and 1 capsule in the evening. omeprazole 2023-0 Yes 20mg Take 1 [facility] 20 mg 4-24 capsule by [facility] of capsule 00:00: mouth in [place] [address] the Medical morning Branch and 1 capsule in the evening. omeprazole 2023-0 Yes 20mg Take 1 [facility] 20 mg 4-24 capsule by [facility] of capsule 00:00: mouth in [place] [address] the Medical morning [place] and 1 capsule in the evening. omeprazole 2023-0 Yes 20mg Take 1 [facility] 20 mg 4-24 capsule by [facility] of capsule 00:00: mouth in [place] [address] the Medical morning [place] and 1 capsule in the evening. omeprazole 2023-0 Yes 20mg Take 1 [facility] 20 mg 4-24 capsule by [facility] of capsule 00:00: mouth in [place] [address] the Medical morning [place] and 1 capsule in the evening. omeprazole 2023-0 Yes 20mg Take 1 [facility] 20 mg 4-24 capsule by [facility] of capsule 00:00: mouth in [address] Medical morning [place] and 1 capsule in the evening. omeprazole 2023-0 Yes 20mg Take 1 [facility] 20 mg 4-24 capsule by [facility] of capsule 00:00: mouth in [address] Medical morning [place] and 1 capsule in the evening. omeprazole 2023-0 Yes 20mg Take 1 [facility] 20 mg 4-24 capsule by [facility] of capsule 00:00: mouth in [address] morning [place] and 1 capsule in the evening. omeprazole 2023-0 Yes 20mg Take 1 [facility] 20 mg 4-24 capsule by [facility] of capsule 00:00: mouth in [address] Medical morning [place] and 1 capsule in the evening. omeprazole 2023-0 Yes 20mg Take 1 [facility] 20 mg 4-24 capsule by [facility] of capsule 00:00: mouth in [place] [address] the Medical morning Branch and 1 capsule in the evening. omeprazole 2023-0 Yes 20mg Take 1 [facility] 20 mg 4-24 capsule by [facility] of capsule 00:00: mouth in [place] [address] the Medical morning Branch and 1 capsule in the evening. omeprazole 2023-0 Yes 20mg Take 1 [facility] 20 mg 4-24 capsule by [facility] of capsule 00:00: mouth in [place] [address] the Medical morning Branch and 1 capsule in the evening. omeprazole 2023-0 Yes 20mg Take 1 [facility] 20 mg 4-24 capsule by [facility] of capsule 00:00: mouth in [place] [address] the Medical morning Branch and 1 capsule in the evening. omeprazole 2023-0 Yes 20mg Take 1 [facility] 20 mg 4-24 capsule by [facility] of capsule 00:00: mouth in [place] [address] the Medical morning Branch and 1 capsule in the evening. omeprazole 2023-0 Yes 20mg Take 1 [facility] 20 mg 4-24 capsule by [facility] of capsule 00:00: mouth in [place] [address] the Medical morning Branch and 1 capsule in the evening. omeprazole 2023-0 Yes 20mg Take 1 [facility] 20 mg 4-24 capsule by [facility] of capsule 00:00: mouth in [place] [address] the Medical morning Branch and 1 capsule in the evening. omeprazole 2023-0 Yes 20mg Take 1 [facility] 20 mg 4-24 capsule by [facility] of capsule 00:00: mouth in [place] [address] the Medical morning Branch and 1 capsule in the evening. omeprazole 2023-0 Yes 20mg Take 1 [facility] 20 mg 4-24 capsule by [facility] of capsule 00:00: mouth in [place] [address] the Medical morning Branch and 1 capsule in the evening. omeprazole 2023-0 Yes 20mg Take 1 [facility] 20 mg 4-24 capsule by [facility] of capsule 00:00: mouth in [place] [address] the Medical morning Branch and 1 capsule in the evening. omeprazole 2023-0 Yes 20mg Take 1 [facility] 20 mg 4-24 capsule by [facility] of capsule 00:00: mouth in [place] [address] the Medical morning Branch and 1 capsule in the evening. omeprazole 2023-0 Yes 20mg Take 1 [facility] 20 mg 4-24 capsule by [facility] of capsule 00:00: mouth in [place] 00 the Medical morning Branch and 1 capsule in the evening. omeprazole 2023-0 Yes 20mg Take 1 [facility] 20 mg 4-24 capsule by [facility] of capsule 00:00: mouth in [place] 00 the Medical morning Branch and 1 capsule in the evening. omeprazole 2023-0 Yes 20mg Take 1 [facility] 20 mg 4-24 capsule by [facility] of capsule 00:00: mouth in [place] 00 the Medical morning Branch and 1 capsule in the evening. omeprazole 2023-0 Yes 20mg Take 1 [facility] 20 mg 4-24 capsule by [facility] of capsule 00:00: mouth in [place] 00 the Medical morning Branch and 1 capsule in the evening. omeprazole 2023-0 Yes 20mg Take 1 [facility] 20 mg 4-24 capsule by [facility] of capsule 00:00: mouth in [place] [address] the Medical morning Branch and 1 capsule in the evening. omeprazole 2023-0 Yes 20mg Take 1 [facility] 20 mg 4-24 capsule by [facility] of capsule 00:00: mouth in [place] [address] the Medical morning Branch and 1 capsule in the evening. omeprazole 2023-0 Yes 20mg Take 1 [facility] 20 mg 4-24 capsule by [facility] of capsule 00:00: mouth in [place] [address] the Medical morning Branch and 1 capsule in the evening. omeprazole 2023-0 Yes 20mg Take 1 [facility] 20 mg 4-24 capsule by [facility] of capsule 00:00: mouth in [place] [address] the Medical morning Branch and 1 capsule in the evening. omeprazole 2023-0 Yes 20mg Take 1 [facility] 20 mg 4-24 capsule by [facility] of capsule 00:00: mouth in [place] [address] the Medical morning Branch and 1 capsule in the evening. omeprazole 2023-0 Yes 20mg Take 1 [facility] 20 mg 4-24 capsule by [facility] of capsule 00:00: mouth in [place] [address] the Medical morning Branch and 1 capsule in the evening. omeprazole 2023-0 Yes 20mg Take 1 [facility] 20 mg 4-24 capsule by [facility] of capsule 00:00: mouth in [place] [address] the Medical morning Branch and 1 capsule in the evening. omeprazole 2023-0 Yes 20mg Take 1 [facility] 20 mg 4-24 capsule by [facility] of capsule 00:00: mouth in [place] 00 the Medical morning Branch and 1 capsule in the evening. omeprazole 2023-0 Yes 20mg Take 1 [facility] 20 mg 4-24 capsule by [facility] of capsule 00:00: mouth in [place] 00 the Medical morning Branch and 1 capsule in the evening. diazePAM 2 3-0 Yes 2mg Take 1 [facility] mg tablet 4-21 tablet by ity o f 00:00: mouth in [place] 00 the Medical morning Branch and 1 tablet in the evening. diazePAM 2 3-0 Yes 2mg Take 1 [facility] mg tablet 4-21 tablet by ity o f 00:00: mouth in [place] 00 the Medical morning Branch and 1 tablet in the evening. diazePAM 2 3-0 Yes 2mg Take 1 [facility] mg tablet 4-21 tablet by ity o f 00:00: mouth in [place] the Medical morning Branch and 1 tablet in the evening. diazePAM 2 3-0 Yes 2mg Take 1 [facility] mg tablet 4-21 tablet by ity o f 00:00: mouth in [place] the Medical morning Branch and 1 tablet in the evening. diazePAM 2 3-0 Yes 2mg Take 1 [facility] mg tablet 4-21 tablet by ity o f 00:00: mouth in [place] the Medical morning Branch and 1 tablet in the evening. diazePAM 2 2023-0 Yes 2mg Take 1 [facility] mg tablet 4-21 tablet by ity o f 00:00: mouth in [place] the Medical morning Branch and 1 tablet in the evening. diazePAM 2 3-0 Yes 2mg Take 1 [facility] mg tablet 4-21 tablet by ity o f 00:00: mouth in [place] the Medical morning Branch and 1 tablet in the evening. diazePAM 2 2023-0 Yes 2mg Take 1 [facility] mg tablet 4-21 tablet by ity o f 00:00: mouth in [place] the Medical morning Branch and 1 tablet in the evening. diazePAM 2 2023-0 Yes 2mg Take 1 [facility] mg tablet 4-21 tablet by ity o f 00:00: mouth in [place] [address] the Medical morning Branch and 1 tablet in the evening. diazePAM 2 2023-0 Yes 2mg Take 1 [facility] mg tablet 4-21 tablet by ity o f 00:00: mouth in [place] 00 the Medical morning Branch and 1 tablet in the evening. diazePAM 2 2023-0 Yes 2mg Take 1 [facility] mg tablet 4-21 tablet by ity o f 00:00: mouth in [place] 00 the Medical morning Branch and 1 tablet in the evening. diazePAM 2 2022-0 Yes 2mg Take 1 [facility] mg tablet 4-21 tablet by ity o f 00:00: mouth in [place] 00 the Medical morning Branch and 1 tablet in the evening. diazePAM 2 2022-0 Yes 2mg Take 1 [facility] mg tablet 4-21 tablet by ity o f 00:00: mouth in [place] 00 the Medical morning Branch and 1 tablet in the evening. diazePAM 2 2022-0 Yes 2mg Take 1 [facility] mg tablet 4-21 tablet by ity o f 00:00: mouth in [place] 00 the Medical morning Branch and 1 tablet in the evening. diazePAM 2 2022-0 Yes 2mg Take 1 [facility] mg tablet 4-21 tablet by ity o f 00:00: mouth in [place] 00 the Medical morning Branch and 1 tablet in the evening. diazePAM 2 2022-0 Yes 2mg Take 1 [facility] mg tablet 4-21 tablet by ity o f 00:00: mouth in [place] 00 the Medical morning Branch and 1 tablet in the evening. diazePAM 2 3-0 Yes 2mg Take 1 [facility] mg tablet 4-21 tablet by ity o f 00:00: mouth in [place] 00 the Medical morning Branch and 1 tablet in the evening. diazePAM 2 3-0 Yes 2mg Take 1 [facility] mg tablet 4-21 tablet by ity o f 00:00: mouth in [place] 00 the Medical morning Branch and 1 tablet in the evening. diazePAM 2 3-0 Yes 2mg Take 1 [facility] rs mg tablet 4-21 tablet by ity o f 00:00: mouth in [place] 00 the Medical morning Branch and 1 tablet in the evening. diazePAM 2 3-0 Yes 2mg Take 1 [facility] rs mg tablet 4-21 tablet by ity o f 00:00: mouth in [place] 00 the Medical morning Branch and 1 tablet in the evening. diazePAM 2 3-0 Yes 2mg Take 1 [facility] rs mg tablet 4-21 tablet by ity o f 00:00: mouth in [place] 00 the Medical morning Branch and 1 tablet in the evening. diazePAM 2 3-0 Yes 2mg Take 1 [facility] rs mg tablet 4-21 tablet by ity o f 00:00: mouth in [place] 00 the Medical morning Branch and 1 tablet in the evening. diazePAM 2 2022-0 Yes 2mg Take 1 [facility] rs mg tablet 4-21 tablet by ity o f 00:00: mouth in [place] 00 the Medical morning Branch and 1 tablet in the evening. diazePAM 2 3-0 Yes 2mg Take 1 [facility] rs mg tablet 4-21 tablet by ity o f 00:00: mouth in [place] 00 the Medical morning Branch and 1 tablet in the evening. diazePAM 2 3-0 Yes 2mg Take 1 [facility] rs mg tablet 4-21 tablet by ity o f 00:00: mouth in [place] 00 the Medical morning Branch and 1 tablet in the evening. diazePAM 2 2022-0 Yes 2mg Take 1 [facility] rs mg tablet 4-21 tablet by ity o f 00:00: mouth in [place] 00 the Medical morning Branch and 1 tablet in the evening. diazePAM 2 2022-0 Yes 2mg Take 1 [facility] rs mg tablet 4-21 tablet by ity o f 00:00: mouth in [place] 00 the Medical morning Branch and 1 tablet in the evening. diazePAM 2 2022-0 Yes 2mg Take 1 [facility] rs mg tablet 4-21 tablet by ity o f 00:00: mouth in [place] 00 the Medical morning Branch and 1 tablet in the evening. diazePAM 2 3-0 Yes 2mg Take 1 [facility] rs mg tablet 4-21 tablet by ity o f 00:00: mouth in [place] 00 the Medical morning Branch and 1 tablet in the evening. diazePAM 2 3-0 Yes 2mg Take 1 [facility] rs mg tablet 4-21 tablet by ity o f 00:00: mouth in [place] 00 the Medical morning Branch and 1 tablet in the evening. diazePAM 2 3-0 Yes 2mg Take 1 [facility] rs mg tablet 4-21 tablet by ity o f 00:00: mouth in [place] 00 the Medical morning Branch and 1 tablet in the evening. diazePAM 2 3-0 Yes 2mg Take 1 [facility] rs mg tablet 4-21 tablet by ity o f 00:00: mouth in [place] 00 the Medical morning Branch and 1 tablet in the evening. diazePAM 2 3-0 Yes 2mg Take 1 [facility] rs mg tablet 4-21 tablet by ity o f 00:00: mouth in [place] 00 the Medical morning Branch and 1 tablet in the evening. diazePAM 2 3-0 Yes 2mg Take 1 [facility] rs mg tablet 4-21 tablet by ity o f 00:00: mouth in [place] 00 the Medical morning Branch and 1 tablet in the evening. diazePAM 2 3-0 Yes 2mg Take 1 [facility] rs mg tablet 4-21 tablet by ity o f 00:00: mouth in [place] 00 the Medical morning Branch and 1 tablet in the evening. diazePAM 2 3-0 Yes 2mg Take 1 [facility] rs mg tablet 4-21 tablet by ity o f 00:00: mouth in [place] 00 the Medical morning Branch and 1 tablet in the evening. diazePAM 2 2022-0 Yes 2mg Take 1 [facility] rs mg tablet 4-21 tablet by ity o f 00:00: mouth in [place] 00 the Medical morning Branch and 1 tablet in the evening. diazePAM 2 3-0 Yes 2mg Take 1 [facility] rs mg tablet 4-21 tablet by ity o f 00:00: mouth in [place] 00 the Medical morning Branch and 1 tablet in the evening. diazePAM 2 2022-0 Yes 2mg Take 1 [facility] rs mg tablet 4-21 tablet by ity o f 00:00: mouth in [place] 00 the Medical morning Branch and 1 tablet in the evening. diazePAM 2 3-0 Yes 2mg Take 1 [facility] rs mg tablet 4-21 tablet by ity o f 00:00: mouth in [place] 00 the Medical morning Branch and 1 tablet in the evening. diazePAM 2 3-0 Yes 2mg Take 1 [facility] rs mg tablet 4-21 tablet by ity o f 00:00: mouth in [place] 00 the Medical morning Branch and 1 tablet in the evening. diazePAM 2 3-0 Yes 2mg Take 1 [facility] rs mg tablet 4-21 tablet by ity o f 00:00: mouth in [place] 00 the Medical morning Branch and 1 tablet in the evening. diazePAM 2 3-0 Yes 2mg Take 1 [facility] rs mg tablet 4-21 tablet by ity o f 00:00: mouth in [place] 00 the Medical morning Branch and 1 tablet in the evening. diazePAM 2 3-0 Yes 2mg Take 1 [facility] rs mg tablet 4-21 tablet by ity o f 00:00: mouth in [place] 00 the Medical morning Branch and 1 tablet in the evening. diazePAM 2 3-0 Yes 2mg Take 1 [facility] rs mg tablet 4-21 tablet by ity o f 00:00: mouth in [place] 00 the Medical morning Branch and 1 tablet in the evening. diazePAM 2 3-0 Yes 2mg Take 1 [facility] rs mg tablet 4-21 tablet by ity o f 00:00: mouth in [place] 00 the Medical morning Branch and 1 tablet in the evening. diazePAM 2 2022-0 Yes 2mg Take 1 [facility] rs mg tablet 4-21 tablet by ity o f 00:00: mouth in [place] 00 the Medical morning Branch and 1 tablet in the evening. diazePAM 2 2022-0 Yes 2mg Take 1 [facility] rs mg tablet 4-21 tablet by ity o f 00:00: mouth in [place] 00 the Medical morning Branch and 1 tablet in the evening. diazePAM 2 2022-0 Yes 2mg Take 1 [facility] rs mg tablet 4-21 tablet by ity o f 00:00: mouth in [place] 00 the Medical morning Branch and 1 tablet in the evening. diazePAM 2 2022-0 Yes 2mg Take 1 [facility] rs mg tablet 4-21 tablet by ity o f 00:00: mouth in [place] 00 the Medical morning Branch and 1 tablet in the evening. diazePAM 2 3-0 Yes 2mg Take 1 [facility] rs mg tablet 4-21 tablet by ity o f 00:00: mouth in [place] 00 the Medical morning Branch and 1 tablet in the evening. diazePAM 2 3-0 Yes 2mg Take 1 [facility] rs mg tablet 4-21 tablet by ity o f 00:00: mouth in [place] 00 the Medical morning Branch and 1 tablet in the evening. diazePAM 2 3-0 Yes 2mg Take 1 [facility] rs mg tablet 4-21 tablet by ity o f 00:00: mouth in [place] 00 the Medical morning Branch and 1 tablet in the evening. diazePAM 2 3-0 Yes 2mg Take 1 [facility] rs mg tablet 4-21 tablet by ity o f 00:00: mouth in [place] 00 the Medical morning Branch and 1 tablet in the evening. diazePAM 2 3-0 Yes 2mg Take 1 [facility] rs mg tablet 4-21 tablet by ity o f 00:00: mouth in [place] 00 the Medical morning Branch and 1 tablet in the evening. diazePAM 2 3-0 Yes 2mg Take 1 [facility] rs mg tablet 4-21 tablet by ity o f 00:00: mouth in [place] 00 the Medical morning Branch and 1 tablet in the evening. diazePAM 2 2022-0 Yes 2mg Take 1 [facility] rs mg tablet 4-21 tablet by ity o f 00:00: mouth in [place] 00 the Medical morning Branch and 1 tablet in the evening. diazePAM 2 3-0 Yes 2mg Take 1 [facility] rs mg tablet 4-21 tablet by ity o f 00:00: mouth in [place] 00 the Medical morning Branch and 1 tablet in the evening. diazePAM 2 2022-0 Yes 2mg Take 1 [facility] rs mg tablet 4-21 tablet by ity o f 00:00: mouth in [place] 00 the Medical morning Branch and 1 tablet in the evening. diazePAM 2 3-0 Yes 2mg Take 1 [facility] rs mg tablet 4-21 tablet by ity o f 00:00: mouth in [place] 00 the Medical morning Branch and 1 tablet in the evening. diazePAM 2 3-0 Yes 2mg Take 1 [facility] rs mg tablet 4-21 tablet by ity o f 00:00: mouth in [place] 00 the Medical morning Branch and 1 tablet in the evening. diazePAM 2 2022-0 Yes 2mg Take 1 [facility] rs mg tablet 4-21 tablet by ity o f 00:00: mouth in [place] 00 the Medical morning Branch and 1 tablet in the evening. diazePAM 2 3-0 Yes 2mg Take 1 [facility] rs mg tablet 4-21 tablet by ity o f 00:00: mouth in [place] 00 the Medical morning Branch and 1 tablet in the evening. diazePAM 2 3-0 Yes 2mg Take 1 [facility] rs mg tablet 4-21 tablet by ity o f 00:00: mouth in [place] 00 the Medical morning Branch and 1 tablet in the evening. diazePAM 2 3-0 Yes 2mg Take 1 [facility] rs mg tablet 4-21 tablet by ity o f 00:00: mouth in [place] 00 the Medical morning Branch and 1 tablet in the evening. diazePAM 2 3-0 Yes 2mg Take 1 [facility] rs mg tablet 4-21 tablet by ity o f 00:00: mouth in [place] 00 the Medical morning Branch and 1 tablet in the evening. diazePAM 2 3-0 Yes 2mg Take 1 [facility] rs mg tablet 4-21 tablet by ity o f 00:00: mouth in [place] 00 the Medical morning Branch and 1 tablet in the evening. diazePAM 2 3-0 Yes 2mg Take 1 [facility] rs mg tablet 4-21 tablet by ity o f 00:00: mouth in [place] 00 the Medical morning Branch and 1 tablet in the evening. diazePAM 2 3-0 Yes 2mg Take 1 [facility] rs mg tablet 4-21 tablet by ity o f 00:00: mouth in [place] 00 the Medical morning Branch and 1 tablet in the evening. diazePAM 2 3-0 Yes 2mg Take 1 [facility] rs mg tablet 4-21 tablet by ity o f 00:00: mouth in [place] 00 the Medical morning Branch and 1 tablet in the evening. diazePAM 2 3-0 Yes 2mg Take 1 [facility] rs mg tablet 4-21 tablet by ity o f 00:00: mouth in [place] 00 the Medical morning Branch and 1 tablet in the evening. diazePAM 2 3-0 Yes 2mg Take 1 [facility] rs mg tablet 4-21 tablet by ity o f 00:00: mouth in [place] 00 the Medical morning Branch and 1 tablet in the evening. diazePAM 2 2022-0 Yes 2mg Take 1 [facility] rs mg tablet 4-21 tablet by ity o f 00:00: mouth in [place] 00 the Medical morning Branch and 1 tablet in the evening. diazePAM 2 3-0 Yes 2mg Take 1 [facility] rs mg tablet 4-21 tablet by ity o f 00:00: mouth in [place] 00 the Medical morning Branch and 1 tablet in the evening. diazePAM 2 3-0 Yes 2mg Take 1 [facility] rs mg tablet 4-21 tablet by ity o f 00:00: mouth in [place] 00 the Medical morning Branch and 1 tablet in the evening. diazePAM 2 3-0 Yes 2mg Take 1 [facility] rs mg tablet 4-21 tablet by ity o f 00:00: mouth in [place] 00 the Medical morning Branch and 1 tablet in the evening. diazePAM 2 3-0 Yes 2mg Take 1 [facility] rs mg tablet 4-21 tablet by ity o f 00:00: mouth in [place] 00 the Medical morning Branch and 1 tablet in the evening. diazePAM 2 3-0 Yes 2mg Take 1 [facility] rs mg tablet 4-21 tablet by ity o f 00:00: mouth in [place] 00 the Medical morning Branch and 1 tablet in the evening. diazePAM 2 3-0 Yes 2mg Take 1 [facility] rs mg tablet 4-21 tablet by ity o f 00:00: mouth in [place] [address] the Medical morning Branch and 1 tablet in the evening. omeprazole 2023-0 Yes [id number] 40mg Take 1 [facility] 40 mg 4-19 capsule by [facility] of capsule 00:00: mouth in [place] [address] the [facility] morning [place] and 1 capsule in the evening. omeprazole 2023-0 Yes [id number] 40mg Take 1 [facility] 40 mg 4-19 capsule by it[facility] of capsule 00:00: mouth in [place] [address] the Medical morning [place] and 1 capsule in the evening. omeprazole 2023-0 Yes [id number] 40mg Take 1 [facility] 40 mg 4-19 capsule by ity of capsule 00:00: mouth in [address] Medical morning [place] and 1 capsule in the evening. omeprazole 2023-0 Yes [id number] 40mg Take 1 [facility] 40 mg 4-19 capsule by it[facility] of capsule 00:00: mouth in [address] morning [place] and 1 capsule in the evening. omeprazole 2023-0 Yes [id number] 40mg Take 1 [facility] 40 mg 4-19 capsule by it[facility] of capsule 00:00: mouth in [address] morning [place] and 1 capsule in the evening. omeprazole 2023-0 Yes [id number] 40mg Take 1 [facility] 40 mg 4-19 capsule by it[facility] of capsule 00:00: mouth in [address] morning [place] and 1 capsule in the evening. omeprazole 2023-0 Yes [id number] 40mg Take 1 [facility] 40 mg 4-19 capsule by it[facility] of capsule 00:00: mouth in [address] morning [place] and 1 capsule in the evening. omeprazole 2023-0 Yes [id number] 40mg Take 1 [facility] 40 mg 4-19 capsule by it[facility] of capsule 00:00: mouth in [address] Medical morning [place] and 1 capsule in the evening. omeprazole 2023-0 Yes [id number] 40mg Take 1 [facility] 40 mg 4-19 capsule by [facility] of capsule 00:00: mouth in [address] morning [place] and 1 capsule in the evening. omeprazole 2023-0 Yes [id number] 40mg Take 1 [facility] 40 mg 4-19 capsule by it[facility] of capsule 00:00: mouth in [address] morning [place] and 1 capsule in the evening. omeprazole 2023-0 Yes [id number] 40mg Take 1 [facility] 40 mg 4-19 capsule by [facility] of capsule 00:00: mouth in [place] [address] the Medical morning Branch and 1 capsule in the evening. omeprazole 2023-0 Yes [id number] 40mg Take 1 [facility] 40 mg 4-19 capsule by it[facility] of capsule 00:00: mouth in [place] [address] the Medical morning Branch and 1 capsule in the evening. omeprazole 2023-0 Yes [id number] 40mg Take 1 [facility] 40 mg 4-19 capsule by it[facility] of capsule 00:00: mouth in [place] [address] the Medical morning Branch and 1 capsule in the evening. omeprazole 2023-0 Yes [id number] 40mg Take 1 [facility] 40 mg 4-19 capsule by [facility]y of capsule 00:00: mouth in [place] [address] the Medical morning Branch and 1 capsule in the evening. omeprazole 2023-0 Yes [id number] 40mg Take 1 [facility] 40 mg 4-19 capsule by [facility] of capsule 00:00: mouth in [place] [address] the Medical morning [place] and 1 capsule in the evening. omeprazole 2023-0 Yes [id number] 40mg Take 1 [facility] 40 mg 4-19 capsule by [facility] of capsule 00:00: mouth in [place] [address] the Medical morning [place] and 1 capsule in the evening. omeprazole 2023-0 Yes [id number] 40mg Take 1 [facility] 40 mg 4-19 capsule by it[facility] of capsule 00:00: mouth in [place] [address] the Medical morning [place] and 1 capsule in the evening. omeprazole 2023-0 Yes [id number] 40mg Take 1 [facility] 40 mg 4-19 capsule by ity of capsule 00:00: mouth in [place] [address] the Medical morning Branch and 1 capsule in the evening. omeprazole 2023-0 Yes [id number] 40mg Take 1 [facility] 40 mg 4-19 capsule by ity of capsule 00:00: mouth in [place] [address] the Medical morning Branch and 1 capsule in the evening. omeprazole 2023-0 Yes [id number] 40mg Take 1 [facility] 40 mg 4-19 capsule by ity of capsule 00:00: mouth in [place] [address] the Medical morning Sparks and 1 capsule in the evening. omeprazole 2023-0 Yes [id number] 40mg Take 1 [facility] 40 mg 4-19 capsule by ity of capsule 00:00: mouth in [address] Medical morning Sparks and 1 capsule in the evening. omeprazole 2023-0 Yes [id number] 40mg Take 1 [facility] 40 mg 4-19 capsule by ity of capsule 00:00: mouth in [place] [address] the Medical morning Branch and 1 capsule in the evening. omeprazole 2023-0 Yes [id number] 40mg Take 1 [facility] 40 mg 4-19 capsule by ity of capsule 00:00: mouth in [place] [address] the Medical morning Sparks and 1 capsule in the evening. omeprazole 2023-0 Yes [id number] 40mg Take 1 [facility] 40 mg 4-19 capsule by ity of capsule 00:00: mouth in [address] Medical morning Sparks and 1 capsule in the evening. omeprazole 2023-0 Yes [id number] 40mg Take 1 [facility] 40 mg 4-19 capsule by ity of capsule 00:00: mouth in [address] morning Sparks and 1 capsule in the evening. omeprazole 2023-0 Yes [id number] 40mg Take 1 [facility] 40 mg 4-19 capsule by ity of capsule 00:00: mouth in [address] morning Sparks and 1 capsule in the evening. omeprazole 2023-0 Yes [id number] 40mg Take 1 [facility] 40 mg 4-19 capsule by ity of capsule 00:00: mouth in [address] morning Sparks and 1 capsule in the evening. omeprazole 2023-0 Yes [id number] 40mg Take 1 [facility] 40 mg 4-19 capsule by ity of capsule 00:00: mouth in [address] morning Sparks and 1 capsule in the evening. omeprazole 2023-0 Yes [id number] 40mg Take 1 [facility] 40 mg 4-19 capsule by ity of capsule 00:00: mouth in [address] morning Sparks and 1 capsule in the evening. omeprazole 2023-0 Yes [id number] 40mg Take 1 [facility] 40 mg 4-19 capsule by ity of capsule 00:00: mouth in [address] morning Sparks and 1 capsule in the evening. omeprazole 2023-0 Yes [id number] 40mg Take 1 [facility] 40 mg 4-19 capsule by ity of capsule 00:00: mouth in [address] morning Sparks and 1 capsule in the evening. omeprazole 2023-0 Yes [id number] 40mg Take 1 [facility] 40 mg 4-19 capsule by ity of capsule 00:00: mouth in [address] morning Branch and 1 capsule in the evening. omeprazole 0 Yes [id number] 40mg Take 1 [facility] 40 mg 4-19 capsule by ity of capsule 00:00: mouth in [place] 00 the Medical morning Branch and 1 capsule in the evening. omeprazole 0 2022- No [id number] 40mg Take 1 [facility] 40 mg 4-19 06-05 capsule by ity of capsule 00:00: 00:00 mouth in [place] 00 :00 the Medical morning Branch and 1 capsule in the evening. omeprazole 0 2022- No [id number] 40mg Take 1 [facility] 40 mg 4-19 06-05 capsule by ity of capsule 00:00: 00:00 mouth in [place] 00 :00 the Medical morning Branch and 1 capsule in the evening. omeprazole 2022- No [id number] 40mg Take 1 [facility] 40 mg 4-19 06-05 capsule by ity of capsule 00:00: 00:00 mouth in [place] 00 :00 the Medical morning Branch and 1 capsule in the evening. IMITREX 5 Yes as needed [facility] vers MG/ACTUATIO 4-18 for ity of N NASAL 09:34: migraines [place] SPRY 00 Medical Branch triamcinolo Yes Apply to [place] ne 0.1% in 4-18 affected ity o f aquaphor 09:34: area(s). [place] (COMPOUNDED 00 Medical ) ointment Branch cariprazine Yes 1.5mg Take 1.5 U nivers (VRAYLAR) 4-18 mg by ity of 1.5 mg (1)- 09:34: mouth [place] 3 mg (6) 00 every Medical CpPk morning. Branch IMITREX 5 Yes as needed [facility] MG/ACTUATIO 4-18 for ity of N NASAL 09:34: migraines [place] SPRY 00 Medical [place] triamcinolo Yes Apply to [place] 0.1% in 4-18 affected ity o f aquaphor 09:34: area(s). [place] (COMPOUNDED 00 Medical ) ointment Branch cariprazine Yes 1.5mg Take 1.5 [facility] (VRAYLAR) 4-18 mg by ity of 1.5 mg (1)- 09:34: mouth [place] 3 mg (6) 00 every Medical CpPk morning. Branch IMITREX 5 Yes as needed [facility] MG/ACTUATIO 4-18 for ity of N NASAL 09:34: migraines [place] SPRY 00 Medical Branch pending [facility] to [facility] Yes Apply to [...] 09:34: migraines [place] SPRY 00 Medical Branch pending [facility] Yes Apply to [...] 09:34: migraines [place] SPRY 00 Medical Branch pending [facility] Yes Apply to [...] NASAL 09:34: migraines [place] SPRY Medical Branch pending [facility] Yes Apply to [place] 0.1% in 4-18 affected ity o f aquaphor 09:34: area(s). [place] (COMPOUNDED Medical ) ointment Branch cariprazine Yes 1.5mg Take 1.5 [facility] n[facility] (VRAYLAR) 4-18 mg by ity of 1.5 mg (1)- 09:34: mouth [place] 3 mg (6) 00 every Medical CpPk morning. Branch IMITREX 5 0 Yes as needed [facility] MG/ACTUATIO 4-18 for ity of N NASAL 09:34: migraines [place] SPRY Medical Branch pending [facility] to [facility] Yes Apply to [place] 0.1% in -18 affected ity o f aquaphor 09:34: area(s). [place] (COMPOUNDED Medical ) ointment Branch cariprazine Yes 1.5mg Take 1.5 [facility] (VRAYLAR) 4-18 mg by ity of 1.5 mg (1)- 09:34: mouth [place] 3 mg (6) 00 every Medical CpPk morning. Branch IMITREX 5 0 Yes as needed [facility] MG/ACTUATIO 4-18 for ity of N NASAL 09:34: migraines [place] SPR[facility] Medical Branch pending [facility] to [facility] Yes Apply to [place] 0.1% in -18 affected ity o f aquaphor 09:34: area(s). [place] (COMPOUNDED Medical ) ointment Branch cariprazine Yes 1.5mg Take 1.5 [facility] nivers (VRAYLAR) 4-18 mg by ity of 1.5 mg (1)- 09:34: mouth [place] 3 mg (6) 00 every Medical CpPk morning. Branch IMITREX 5 0 Yes as needed [facility] MG/ACTUATIO 4-18 for ity of N NASAL 09:34: migraines [place] SPR[facility] Medical Branch pending [facility] Yes Apply to [place] 0.1% in 4-18 affected ity o f aquaphor 09:34: area(s). [place] (COMPOUNDED Medical ) ointment Branch cariprazine 0 Yes 1.5mg Take 1.5 [facility] nivers (VRAYLAR) 4-18 mg by ity of 1.5 mg (1)- 09:34: mouth [place] 3 mg (6) 00 every Medical CpPk morning. Branch IMITREX 5 2022-0 Yes as needed [facility] MG/ACTUATIO 4-18 [...] affected ity o f aquaphor 09:34: area(s). [place] (COMPOUNDED 00 Medical ) ointment Branch cariprazine [...] affected ity o f aquaphor 09:34: area(s). [place] (COMPOUNDED 00 Medical ) ointment Branch cariprazine 2022- Yes 1.5mg Take 1.5 [facility] nivers (VRAYLAR) 4-18 mg by ity of 1.5 mg (1)- 09:34: mouth [place] 3 mg (6) 00 every Medical CpPk morning. Branch IMITREX 5 Yes as needed [facility] MG/ACTUATIO 4-18 for ity of N NASAL 09:34: migraines [place] SPRY 00 Medical Branch pending [facility] Yes Apply to [...] 09:34: migraines [place] SPRY 00 Medical Branch pending [facility] Yes Apply to [...] 09:34: migraines [place] SPRY 00 Medical Branch pending [facility] Yes Apply to [...] NASAL 09:34: migraines [place] SPR[facility] Medical Branch pending [facility] Yes Apply to [place] 0.1% in 4-18 affected ity o f aquaphor 09:34: area(s). [place] (COMPOUNDED Medical ) ointment Branch cariprazine Yes 1.5mg Take 1.5 U nivers (VRAYLAR) 4-18 mg by ity of 1.5 mg (1)- 09:34: mouth [place] 3 mg (6) 00 every Medical CpPk morning. Branch IMITREX 5 0 Yes as needed [facility] vers MG/ACTUATIO 4-18 for ity of N NASAL 09:34: migraines [place] SPR[facility] Medical Branch pending [facility] Yes Apply to [place] 0.1% in -18 affected ity o f aquaphor 09:34: area(s). [place] (COMPOUNDED Medical ) ointment Branch cariprazine Yes 1.5mg Take 1.5 [facility] nivers (VRAYLAR) 4-18 mg by ity of 1.5 mg (1)- 09:34: mouth [place] 3 mg (6) 00 every Medical CpPk morning. Branch IMITREX 5 0 Yes as needed [facility] vers MG/ACTUATIO 4-18 for ity of N NASAL 09:34: migraines [place] SPR[facility] Medical Branch pending [facility] Yes Apply to [place] 0.1% in -18 affected ity o f aquaphor 09:34: area(s). [place] (COMPOUNDED Medical ) ointment Branch cariprazine Yes 1.5mg Take 1.5 U nivers (VRAYLAR) 4-18 mg by ity of 1.5 mg (1)- 09:34: mouth [place] 3 mg (6) 00 every Medical CpPk morning. Branch IMITREX 5 0 Yes as needed [facility] vers MG/ACTUATIO 4-18 for ity of N NASAL 09:34: migraines [place] SPR[facility] Medical Branch pending [facility] Yes Apply to [place] 0.1% in 4-18 affected ity o f aquaphor 09:34: area(s). [place] (COMPOUNDED Medical ) ointment Branch cariprazine 0 Yes 1.5mg Take 1.5 U nivers (VRAYLAR) 4-18 mg by ity of 1.5 mg (1)- 09:34: mouth [place] 3 mg (6) 00 every Medical CpPk morning. Branch IMITREX 5 2022-0 Yes as needed [facility] vers MG/ACTUATIO 4-18 [...] affected ity o f aquaphor 09:34: area(s). [place] (COMPOUNDED 00 Medical ) ointment Branch cariprazine [...] affected ity o f aquaphor 09:34: area(s). [place] (COMPOUNDED 00 Medical ) ointment Branch cariprazine 2022- Yes 1.5mg Take 1.5 [facility] nivers (VRAYLAR) 4-18 mg by ity of 1.5 mg (1)- 09:34: mouth [place] 3 mg (6) 00 every Medical CpPk morning. Branch IMITREX 5 Yes as needed [facility] vers MG/ACTUATIO 4-18 for ity of N NASAL 09:34: migraines [place] SPRY 00 Medical Branch pending [facility] Yes Apply to [...] 09:34: migraines [place] SPRY 00 Medical Branch pending [facility] Yes Apply to [...] 09:34: migraines [place] SPRY 00 Medical Branch pending [facility] Yes Apply to [...] NASAL 09:34: migraines [place] SPR[facility] Medical Branch pending [facility] Yes Apply to [place] 0.1% in 4-18 affected ity o f aquaphor 09:34: area(s). [place] (COMPOUNDED Medical ) ointment Branch cariprazine Yes 1.5mg Take 1.5 U nivers (VRAYLAR) 4-18 mg by ity of 1.5 mg (1)- 09:34: mouth [place] 3 mg (6) 00 every Medical CpPk morning. Branch IMITREX 5 0 Yes as needed [facility] vers MG/ACTUATIO 4-18 for ity of N NASAL 09:34: migraines [place] SPR[facility] Medical Branch pending [facility] Yes Apply to [place] 0.1% in -18 affected ity o f aquaphor 09:34: area(s). [place] (COMPOUNDED Medical ) ointment Branch cariprazine Yes 1.5mg Take 1.5 U nivers (VRAYLAR) 4-18 mg by ity of 1.5 mg (1)- 09:34: mouth [place] 3 mg (6) 00 every Medical CpPk morning. Branch IMITREX 5 0 Yes as needed [facility] vers MG/ACTUATIO 4-18 for ity of N NASAL 09:34: migraines [place] SPR[facility] Medical Branch pending [facility] Yes Apply to [place] 0.1% in -18 affected ity o f aquaphor 09:34: area(s). [place] (COMPOUNDED Medical ) ointment Branch cariprazine Yes 1.5mg Take 1.5 U nivers (VRAYLAR) 4-18 mg by ity of 1.5 mg (1)- 09:34: mouth [place] 3 mg (6) 00 every Medical CpPk morning. Branch IMITREX 5 0 Yes as needed [facility] vers MG/ACTUATIO 4-18 for ity of N NASAL 09:34: migraines [place] SPR[facility] Medical Branch pending [facility] Yes Apply to [place] 0.1% in 4-18 affected ity o f aquaphor 09:34: area(s). [place] (COMPOUNDED Medical ) ointment Branch cariprazine 0 Yes 1.5mg Take 1.5 U nivers (VRAYLAR) 4-18 mg by ity of 1.5 mg (1)- 09:34: mouth [place] 3 mg (6) 00 every Medical CpPk morning. Branch IMITREX 5 2022-0 Yes as needed [facility] vers MG/ACTUATIO 4-18 [...] affected ity o f aquaphor 09:34: area(s). [place] (COMPOUNDED 00 Medical ) ointment Branch cariprazine [...] affected ity o f aquaphor 09:34: area(s). [place] (COMPOUNDED 00 Medical ) ointment Branch cariprazine 2022- Yes 1.5mg Take 1.5 U nivers (VRAYLAR) 4-18 mg by ity of 1.5 mg (1)- 09:34: mouth [place] 3 mg (6) 00 every Medical CpPk morning. Branch IMITREX 5 Yes as needed Uni vers MG/ACTUATIO 4-18 for ity of N NASAL 09:34: migraines [place] SPRY 00 Medical Branch pending [facility] Yes Apply to [...] 09:34: migraines [place] SPRY 00 Medical Branch pending [facility] Yes Apply to [...] 09:34: migraines [place] SPRY 00 Medical Branch pending [facility] Yes Apply to [...] 09:34: migraines [place] SPRY 00 Medical Branch [facility] Yes Apply to [place] 0.1% in 4-18 affected ity o f aquaphor 09:34: area(s). [place] (COMPOUNDED 00 Medical ) ointment Branch cariprazine Yes 1.5mg Take 1.5 U nivers (VRAYLAR) 4-18 mg by ity of 1.5 mg (1)- 09:34: mouth [place] 3 mg (6) 00 every Medical CpPk morning. Branch IMITREX 5 Yes as needed Uni vers MG/ACTUATIO 4-18 for ity of N NASAL 09:34: migraines [place] SPRY Medical Branch triamcinolo Yes Apply to [place] 0.1% in 4-18 affected ity o f aquaphor 09:34: area(s). [place] (COMPOUNDED 00 Medical ) ointment Branch IMITREX 5 Yes as needed Uni vers MG/ACTUATIO 4-18 for ity of N NASAL 09:34: migraines [place] SPR[facility] Medical Branch triamcinolo Yes Apply to [place] 0.1% in 4-18 affected ity o f aquaphor 09:34: area(s). [place] (COMPOUNDED 00 Medical ) ointment Branch IMITREX 5 Yes as needed Uni vers MG/ACTUATIO 4-18 for ity of N NASAL 09:34: migraines [place] SPRY 00 Medical Branch triamcinolo Yes Apply to [place] 0.1% in 4-18 affected ity o f aquaphor 09:34: area(s). [place] (COMPOUNDED 00 Medical ) ointment Branch IMITREX 5 Yes as needed Uni vers MG/ACTUATIO 4-18 for ity of N NASAL 09:34: migraines [place] SPRY 00 Medical Branch triamcinolo Yes Apply to [place] 0.1% in 4-18 affected ity o f aquaphor 09:34: area(s). [place] (COMPOUNDED 00 Medical ) ointment Branch IMITREX [...] 09:34: migraines [place] SPRY 00 Medical Branch pending [facility] Yes Apply to [place] 0.1% in 4-18 affected ity o f aquaphor 09:34: area(s). [place] (COMPOUNDED 00 Medical ) ointment Branch IMITREX 5 Yes as needed Uni vers MG/ACTUATIO 4-18 for ity of N NASAL 09:34: migraines [place] SPRY 00 Medical Branch pending [facility] Yes Apply to [place] 0.1% in 4-18 affected ity o f aquaphor 09:34: area(s). [place] (COMPOUNDED 00 Medical ) ointment Branch IMITREX 5 Yes as needed Uni vers MG/ACTUATIO 4-18 for ity of N NASAL 09:34: migraines [place] SPRY 00 Medical Branch pending [facility] Yes Apply to [place] 0.1% in -18 affected ity o f aquaphor 09:34: area(s). [place] (COMPOUNDED 00 Medical ) ointment Branch IMITREX 5 Yes as needed Uni vers MG/ACTUATIO 4-18 for ity of N NASAL 09:34: migraines [place] SPRY 00 Medical Branch pending [facility] Yes Apply to [place] 0.1% in 4-18 affected ity o f aquaphor 09:34: area(s). [place] (COMPOUNDED 00 Medical ) ointment Branch IMITREX 5 Yes as needed Uni vers MG/ACTUATIO 4-18 for ity of N NASAL 09:34: migraines [place] SPR[facility] 00 [facility] Apply to [place] 0.1% in 4-18 affected ity o f aquaphor 09:34: area(s). [place] (COMPOUNDED 00 Medical ) ointment Branch IMITREX 5 Yes as needed Uni vers MG/ACTUATIO 4-18 for ity of N NASAL 09:34: migraines [place] SPRY 00 Medical Branch pending [facility] Yes Apply to [place] 0.1% in -18 affected ity o f aquaphor 09:34: area(s). [place] (COMPOUNDED 00 Medical ) ointment Branch IMITREX 5 Yes as needed Uni vers MG/ACTUATIO 4-18 for ity of N NASAL 09:34: migraines [place] [facility] Yes Apply to [place] 0.1% in -18 affected ity o f aquaphor 09:34: area(s). [place] (COMPOUNDED Medical ) ointment Branch IMITREX 5 Yes as needed Uni vers MG/ACTUATIO 18 for ity of N NASAL 09:34: migraines [place] SPRY Medical Branch pending [facility] Yes Apply to [place] 0.1% in 18 affected ity o f aquaphor 09:34: area(s). [place] (COMPOUNDED Medical ) ointment Branch IMITREX 5 Yes as needed Uni vers MG/ACTUATIO 18 for ity of N NASAL 09:34: migraines [place] SPRY Medical Branch pending [facility] Yes Apply to [place] 0.1% in -18 affected ity o f aquaphor 09:34: area(s). [place] (COMPOUNDED 00 Medical ) ointment Branch dicyclomine 2022- No 20mg 20 mg, Uni vers (BENTYL) 10-29 Intramuscu ity of injection 11:30: 11:31 lar, ONCE, [place] 20 mg 00 :00 1 dose, On Medical [facility] Branch 10/29/22 at 0630, THIERRY levETIRAcet 2022- No 1500mg 1,500 mg, Univers am (KEPPRA) 10-29 IV ity of in NACL 10:45: 12:25 Piggyback, [place] (ISO-OS) 00 :00 ONCE, 1 Medical 1,500 dose, On Branch mg/100 mL Maisha RTU 10/29/22 at 0545, Administer over 15 Minutes, 100 mL iopamidol 2022- No [id number] 80mL 80 mL, Univers (ISOVUE 10-29 Intravenou ity o f 370-500 mL) 09:36: 09:30 s, ONCE, 1 [place] injection 00 :00 dose, On Medica l 80 mL [place] Branch 10/29/22 at 0445, Routine FENTanyl PF 2022- No 50ug 50 mcg, [place] (SUBLIMAZE 10-29 Slow IV ity o f (PF)) 09:30: 09:16 Push, [place] injection 00 :00 ONCE, 1 Medical 50 mcg dose, On Branch [facility] 10/29/22 at 0430, THIERRY NaCl 0.9% 2022- No 1000mL at 999 Uni vers (NS) bolus 10-29 mL/hr, ity of infusion 09:30: 10:19 1,000 mL, [place] 1,000 mL 00 :00 IV Medical Infusion, Branch ONCE, 1 dose, On [facility] 10/29/22 at 0430, THIERRY alum-mag No 30mL 30 mL, Univer s hydroxide-s 10-29 Oral, ity of imeth 08:45: 10:59 ONCE, 1 [place] (MAALOX 00 :00 dose, On Medical PLUS / [place] Branch MAG-AL 10/29/22 at PLUS) 0345, THIERRY 200-200-20 mg/5 mL suspension 30 mL pantoprazol 2022- No 40mg 40 mg, Uni vers e 10-29 Slow IV ity of (PROTONIX) 08:45: 09:15 Push, [place] injection 00 :00 ONCE, 1 Medical 40 mg dose, On Branch [facility] 10/29/22 at 0345 proMETHazin 2022- No 25mg 25 mg, IV Univers e 10-29 Piggyback, ity of (PHENERGAN) 08:45: 10:19 at 200 [place] 25 mg in [place] 00 :00 mL/hr Medical 50 mL IV Administer Branc h piggyback over 15 (CNR) Minutes, ONCE, 1 dose, On [facility] 10/29/22 at 0345, THIERRY dicyclomine 2023-0 202- No [id number] 20mg Take 1 [facility] 20 mg 10-29-21 tablet by ity of tablet 00:00: 04:59 mouth 4 [place] 00 :00 () Medical times Branch daily for 7 days. dicyclomine 2022-0 2022- No [id number] 20mg Take 1 [facility] 20 mg 10-29-21 tablet by ity of tablet 00:00: 04:59 mouth 4 [place] 00 :00 () Medical times Branch daily for 7 days. dicyclomine 2022-0 202- No [id number] 20mg Take 1 [facility] 20 mg 10-29-21 tablet by ity of tablet 00:00: 04:59 mouth 4 [place] 00 :00 () Medical times Branch daily for 7 days. dicyclomine 2022-0 2022- No [id number] 20mg Take 1 [facility] 20 mg 10-29-21 tablet by ity of tablet 00:00: 04:59 mouth 4 [place] 00 :00 () Medical times Branch daily for 7 days. dicyclomine 2022-0 2022- No [id number] 20mg Take 1 [facility] 20 mg 10-29-21 tablet by ity of tablet 00:00: 04:59 mouth 4 [place] 00 :00 () Medical times Branch daily for 7 days. dicyclomine 2022-0 2022- No [id number] 20mg Take 1 [facility] 20 mg 10-29-21 tablet by ity of tablet 00:00: 04:59 mouth 4 [place] 00 :00 () Medical times Branch daily for 7 days. dicyclomine 2022-0 2022- No [id number] 20mg Take 1 [facility] 20 mg 10-29-21 tablet by ity of tablet 00:00: 04:59 mouth 4 [place] 00 :00 () Medical times Branch daily for 7 days. ketorolac 2022-2022- No 30mg 30 mg, Unive rs (TORADOL) 10-28 Slow IV ity of injection 01:45: 01:41 Push, [place] 30 mg 00 :00 ONCE, 1 Medical dose, On Branch Wed10/27/22 at 2045, Routine cyclobenzap 2022- No 10mg 10 mg, Uni vers rine 10-28 Oral, ity of (FLEXERIL) 01:45: 01:37 ONCE, 1 [place] tablet 10 00 :00 dose, On Medica l mg Wed Branch 10/27/22 at 2044, Routine ketorolac 2022- No 30mg 30 mg, [facility] (TORADOL) 10-28 Slow IV ity of injection 01:45: 01:43 Push, [place] 30 mg 00 :00 ONCE, 1 Medical dose, On Branch Wed10/27/22 at 2044, Routine ibuprofen 2022-0 Yes [id number] 800mg Take 1 U nivers 800 mg 4-11 tablet by ity of tablet 00:00: mouth [place] 00 every 8 Medical (eight) Branch hours as needed for Pain (scale 4-6) or Temp > 38.5 C. cyclobenzap 0 Yes [id number] 10mg Take 1 [facility] rine 10 mg 4-11 tablet by ity of tablet 00:00: mouth in [place] 00 the Medical morning Branch and 1 tablet at noon and 1 tablet in the evening. ibuprofen 2022-0 Yes [id number] 800mg Take 1 U nivers 800 mg 4-11 tablet by ity of tablet 00:00: mouth [place] 00 every 8 Medical (eight) Branch hours as needed for Pain (scale 4-6) or Temp > 38.5 C. cyclobenzap 0 Yes [id number] 10mg Take 1 [facility] rine 10 mg 4-11 tablet by ity of tablet 00:00: mouth in [place] 00 the Medical morning Branch and 1 tablet at noon and 1 tablet in the evening. ibuprofen 2022-0 Yes [id number] 800mg Take 1 U nivers 800 mg 4-11 tablet by ity of tablet 00:00: mouth [place] 00 every 8 Medical (eight) Branch hours as needed for Pain (scale 4-6) or Temp > 38.5 C. cyclobenzap 2022-0 Yes [id number] 10mg Take 1 Univers rine 10 mg 4-11 tablet by ity of tablet 00:00: mouth in [place] 00 the Medical morning Branch and 1 tablet at noon and 1 tablet in the evening. ibuprofen 2022-0 Yes [id number] 800mg Take 1 U nivers 800 mg 4-11 tablet by ity of tablet 00:00: mouth [place] 00 every 8 Medical (eight) Branch hours as needed for Pain (scale 4-6) or Temp > 38.5 C. cyclobenzap 202-0 Yes [id number] 10mg Take 1 Univers rine 10 mg 4-11 tablet by ity of tablet 00:00: mouth in [place] 00 the Medical morning Branch and 1 tablet at noon and 1 tablet in the evening. ibuprofen 2022-0 Yes [id number] 800mg Take 1 U nivers 800 mg 4-11 tablet by ity of tablet 00:00: mouth [place] 00 every 8 Medical (eight) Branch hours as needed for Pain (scale 4-6) or Temp > 38.5 C. cyclobenzap 2022-0 Yes [id number] 10mg Take 1 Univers rine 10 mg 4-11 tablet by ity of tablet 00:00: mouth in [place] 00 the Medical morning Branch and 1 tablet at noon and 1 tablet in the evening. ibuprofen 2022-0 Yes [id number] 800mg Take 1 U nivers 800 mg 4-11 tablet by ity of tablet 00:00: mouth [place] 00 every 8 Medical (eight) Branch hours as needed for Pain (scale 4-6) or Temp > 38.5 C. cyclobenzap 2022-0 Yes [id number] 10mg Take 1 [facility] rine 10 mg 4-11 tablet by ity of tablet 00:00: mouth in [place] 00 the Medical morning Branch and 1 tablet at noon and 1 tablet in the evening. ibuprofen 2022-0 Yes [id number] 800mg Take 1 U nivers 800 mg 4-11 tablet by ity of tablet 00:00: mouth [place] 00 every 8 Medical (eight) Branch hours as needed for Pain (scale 4-6) or Temp > 38.5 C. cyclobenzap 2022-0 Yes [id number] 10mg Take 1 Univers rine 10 mg 4-11 tablet by ity of tablet 00:00: mouth in [place] 00 the Medical morning Branch and 1 tablet at noon and 1 tablet in the evening. ibuprofen 2023-0 Yes [id number] 800mg Take 1 U nivers 800 mg 4-11 tablet by ity of tablet 00:00: mouth [place] 00 every 8 Medical (eight) Branch hours as needed for Pain (scale 4-6) or Temp > 38.5 C. cyclobenzap 202-0 Yes [id number] 10mg Take 1 [facility] rine 10 mg 4-11 tablet by ity of tablet 00:00: mouth in [place] 00 the Medical morning Branch and 1 tablet at noon and 1 tablet in the evening. ibuprofen 2022-0 Yes [id number] 800mg Take 1 U nivers 800 mg 4-11 tablet by ity of tablet 00:00: mouth [place] 00 every 8 Medical (eight) Branch hours as needed for Pain (scale 4-6) or Temp > 38.5 C. cyclobenzap 2022-0 Yes [id number] 10mg Take 1 [facility] rine 10 mg 4-11 tablet by ity of tablet 00:00: mouth in [place] 00 the Medical morning Branch and 1 tablet at noon and 1 tablet in the evening. ibuprofen 2022-0 Yes [id number] 800mg Take 1 U nivers 800 mg 4-11 tablet by ity of tablet 00:00: mouth [place] 00 every 8 Medical (eight) Branch hours as needed for Pain (scale 4-6) or Temp > 38.5 C. cyclobenzap 2022-0 Yes [id number] 10mg Take 1 [facility] rine 10 mg 4-11 tablet by ity of tablet 00:00: mouth in [place] 00 the Medical morning Branch and 1 tablet at noon and 1 tablet in the evening. ibuprofen 2022-0 Yes [id number] 800mg Take 1 U nivers 800 mg 4-11 tablet by ity of tablet 00:00: mouth [place] 00 every 8 Medical (eight) Branch hours as needed for Pain (scale 4-6) or Temp > 38.5 C. cyclobenzap 2022-0 Yes [id number] 10mg Take 1 [facility] rine 10 mg 4-11 tablet by ity of tablet 00:00: mouth in [place] 00 the Medical morning Branch and 1 tablet at noon and 1 tablet in the evening. ibuprofen 3-0 Yes [id number] 800mg Take 1 U nivers 800 mg 4-11 tablet by ity of tablet 00:00: mouth [place] 00 every 8 Medical (eight) Branch hours as needed for Pain (scale 4-6) or Temp > 38.5 C. cyclobenzap 3-0 Yes [id number] 10mg Take 1 [facility] rine 10 mg 4-11 tablet by ity of tablet 00:00: mouth in [place] 00 the Medical morning Branch and 1 tablet at noon and 1 tablet in the evening. ibuprofen 2022-0 Yes [id number] 800mg Take 1 U nivers 800 mg 4-11 tablet by ity of tablet 00:00: mouth [place] 00 every 8 Medical (eight) Branch hours as needed for Pain (scale 4-6) or Temp > 38.5 C. cyclobenzap 2022-0 Yes [id number] 10mg Take 1 Univers rine 10 mg 4-11 tablet by ity of tablet 00:00: mouth in [place] 00 the Medical morning Branch and 1 tablet at noon and 1 tablet in the evening. ibuprofen 2022-0 2022- No [id number] 800mg Take 1 [facility] 800 mg 4-11 05-01 tablet by ity of tablet 00:00: 00:00 mouth [place] 00 :00 every 8 Medical (eight) Branch hours as needed for Pain (scale 4-6) or Temp > 38.5 C. cyclobenzap 2022-0 2022- No [id number] 10mg Take 1 [facility] rine 10 mg 4-11 05- tablet by ity of tablet 00:00: 00:00 mouth in [place] 00 :00 the Medical morning Branch and 1 tablet at noon and 1 tablet in the evening. ibuprofen 2022-0 2022- No [id number] 800mg Take 1 [facility] 800 mg 4-11 05-01 tablet by ity of tablet 00:00: 00:00 mouth [place] 00 :00 every 8 Medical (eight) Branch hours as needed for Pain (scale 4-6) or Temp > 38.5 C. cyclobenzap 2022-0 2022- No [id number] 10mg Take 1 [facility] rine 10 mg 4-11 05-01 tablet by ity of tablet 00:00: 00:00 mouth in [place] 00 :00 the Medical morning Branch and 1 tablet at noon and 1 tablet in the evening. iopamidol 2022- No [id number] 65mL 65 mL, Univers (ISOVUE 10-20 Intravenou ity o f 370-500 mL) 23:15: 23:15 s, ONCE, 1 [place] injection 00 :00 dose, On Medica l 65 mL 10/20/22 Branch at 1815, Routine naproxen 2022- No 500mg 500 mg, Univ ers (NAPROSYN) 4-04 04-04 Oral, ity of tablet 500 19:30: 21:25 ONCE, 1 [place] mg 00 :00 dose, On [facility] 10/20/22 Branch at 1625, Routine pantoprazol 2023-0 Yes [id number] 40mg Take 1 Univers e 40 mg EC 3-27 tablet by ity of tablet 00:00: mouth in [place] [address] the [facility] and 1 tablet in the evening. pantoprazol 2023-0 Yes [id number] 40mg Take 1 [facility] e 40 mg EC 3-27 tablet by ity of tablet 00:00: mouth in [place] [address] the [facility] and 1 tablet in the evening. pantoprazol 2023-0 Yes [id number] 40mg Take 1 [facility] e 40 mg EC 3-27 tablet by ity of tablet 00:00: mouth in [address] and 1 tablet in the evening. pantoprazol 2023-0 Yes [id number] 40mg Take 1 [facility] e 40 mg EC 3-27 tablet by ity of tablet 00:00: mouth in [address] and 1 tablet in the evening. pantoprazol 2023-0 Yes [id number] 40mg Take 1 [facility] e 40 mg EC 3-27 tablet by ity of tablet 00:00: mouth in [address] and 1 tablet in the evening. pantoprazol 2023-0 Yes [id number] 40mg Take 1 [facility] e 40 mg EC 3-27 tablet by ity of tablet 00:00: mouth in [address] and 1 tablet in the evening. pantoprazol 2023-0 Yes [id number] 40mg Take 1 [facility] e 40 mg EC 3-27 tablet by ity of tablet 00:00: mouth in [address] and 1 tablet in the evening. pantoprazol 2023-0 Yes [id number] 40mg Take 1 [facility] e 40 mg EC 3-27 tablet by ity of tablet 00:00: mouth in [address] and 1 tablet in the evening. pantoprazol 2023-0 Yes [id number] 40mg Take 1 [facility] e 40 mg EC 3-27 tablet by ity of tablet 00:00: mouth in [address] and 1 tablet in the evening. pantoprazol 2023-0 Yes [id number] 40mg Take 1 [facility] e 40 mg EC 3-27 tablet by ity of tablet 00:00: mouth in [place] 00 the Medical morning Branch and 1 tablet in the evening. pantoprazol 3-0 Yes [id number] 40mg Take 1 [facility] e 40 mg EC 3-27 tablet by ity of tablet 00:00: mouth in [place] 00 the Medical morning Branch and 1 tablet in the evening. pantoprazol 2022-0 Yes [id number] 40mg Take 1 [facility] e 40 mg EC 3-27 tablet by ity of tablet 00:00: mouth in [place] 00 the Medical morning Branch and 1 tablet in the evening. pantoprazol 2022-0 Yes [id number] 40mg Take 1 [facility] e 40 mg EC 3-27 tablet by ity of tablet 00:00: mouth in [place] 00 the Medical morning Branch and 1 tablet in the evening. pantoprazol 2022-0 Yes [id number] 40mg Take 1 [facility] e 40 mg EC 3-27 tablet by ity of tablet 00:00: mouth in [place] 00 the Medical morning Branch and 1 tablet in the evening. pantoprazol 2022-0 2022- No [id number] 40mg Take 1 [facility] e 40 mg EC 3-27 04-19 tablet by ity of tablet 00:00: 00:00 mouth in [place] 00 :00 the Medical morning Branch and 1 tablet in the evening. pantoprazol 2022-0 2022- No [id number] 40mg Take 1 [facility] e 40 mg EC 3-27 04-19 tablet by ity of tablet 00:00: 00:00 mouth in [place] 00 :00 the Medical morning Branch and 1 tablet in the evening. pantoprazol 2022-0 2022- No [id number] 40mg Take 1 [facility] e 40 mg EC 3-27 04-19 tablet by ity of tablet 00:00: 00:00 mouth in [place] 00 :00 the [facility] morning Branch and 1 tablet in the evening. iopamidol 2022- No [id number] 100mL 100 mL, [facility] (ISOVUE 10-09 Intravenou [...] cherie mg Fri Branch 10/09/22 at 0100, THIERRY morpHINE (4 2022- No 4mg 4 mg, [...] 1 dose, On [place] 10/08/22 at 2345, THIERRY ibuprofen 2022-0 Yes [id number] 600mg Take 1 U nivers 600 mg 3-24 tablet by ity of tablet 00:00: mouth [place] 00 every 6 Medical (six) Branch hours as needed for Pain (scale 4-6). ibuprofen 2022-0 Yes [id number] 600mg Take 1 U nivers 600 mg 3-24 tablet by ity of tablet 00:00: mouth [place] 00 every 6 Medical (six) Branch hours as needed for Pain (scale 4-6). esomeprazol 2022-0 Yes [id number] 20mg Take 20 mg [facility] e 20 mg 3-24 by mouth ity of capsule 00:00: daily [place] 00 before a Medical meal. Branch ibuprofen 2022-0 Yes [id number] 600mg Take 1 U nivers 600 mg 3-24 tablet by ity of tablet 00:00: mouth [place] 00 every 6 Medical (six) Branch hours as needed for Pain (scale 4-6). ibuprofen 2022-0 Yes [id number] 600mg Take 1 U nivers 600 mg 3-24 tablet by ity of tablet 00:00: mouth [place] 00 every 6 Medical (six) Branch hours as needed for Pain (scale 4-6). ibuprofen 2022-0 Yes [id number] 600mg Take 1 U nivers 600 mg 3-24 tablet by ity of tablet 00:00: mouth [place] 00 every 6 Medical (six) Branch hours as needed for Pain (scale 4-6). ibuprofen 2023-0 Yes [id number] 600mg Take 1 U nivers 600 mg 3-24 tablet by ity of tablet 00:00: mouth [place] 00 every 6 Medical (six) Branch hours as needed for Pain (scale 4-6). ibuprofen 2023-0 Yes [id number] 600mg Take 1 U nivers 600 mg 3-24 tablet by ity of tablet 00:00: mouth [place] 00 every 6 Medical (six) Branch hours as needed for Pain (scale 4-6). ibuprofen 2023-0 Yes [id number] 600mg Take 1 U nivers 600 mg 3-24 tablet by ity of tablet 00:00: mouth [place] 00 every 6 Medical (six) Branch hours as needed for Pain (scale 4-6). ibuprofen 2023-0 Yes [id number] 600mg Take 1 U nivers 600 mg 3-24 tablet by ity of tablet 00:00: mouth [place] 00 every 6 Medical (six) Branch hours as needed for Pain (scale 4-6). ibuprofen 2023-0 Yes [id number] 600mg Take 1 U nivers 600 mg 3-24 tablet by ity of tablet 00:00: mouth [place] 00 every 6 Medical (six) Branch hours as needed for Pain (scale 4-6). ibuprofen 2023-0 Yes [id number] 600mg Take 1 U nivers 600 mg 3-24 tablet by ity of tablet 00:00: mouth [place] 00 every 6 Medical (six) Branch hours as needed for Pain (scale 4-6). ibuprofen 2023-0 Yes [id number] 600mg Take 1 U nivers 600 mg 3-24 tablet by ity of tablet 00:00: mouth [place] 00 every 6 Medical (six) Branch hours as needed for Pain (scale 4-6). ibuprofen 2023-0 Yes [id number] 600mg Take 1 U nivers 600 mg 3-24 tablet by ity of tablet 00:00: mouth [place] 00 every 6 Medical (six) Branch hours as needed for Pain (scale 4-6). ibuprofen 2023-0 Yes [id number] 600mg Take 1 U nivers 600 mg 3-24 tablet by ity of tablet 00:00: mouth [place] 00 every 6 Medical (six) Branch hours as needed for Pain (scale 4-6). ibuprofen 2023-0 Yes [id number] 600mg Take 1 U nivers 600 mg 3-24 tablet by ity of tablet 00:00: mouth [place] 00 every 6 Medical (six) Branch hours as needed for Pain (scale 4-6). ibuprofen 2023-0 Yes [id number] 600mg Take 1 U nivers 600 mg 3-24 tablet by ity of tablet 00:00: mouth [place] 00 every 6 Medical (six) Branch hours as needed for Pain (scale 4-6). ibuprofen 2023-0 Yes [id number] 600mg Take 1 U nivers 600 mg 3-24 tablet by ity of tablet 00:00: mouth [place] 00 every 6 Medical (six) Branch hours as needed for Pain (scale 4-6). ibuprofen 2023-0 Yes [id number] 600mg Take 1 U nivers 600 mg 3-24 tablet by ity of tablet 00:00: mouth [place] 00 every 6 Medical (six) Branch hours as needed for Pain (scale 4-6). ibuprofen 2023-0 Yes [id number] 600mg Take 1 U nivers 600 mg 3-24 tablet by ity of tablet 00:00: mouth [place] 00 every 6 Medical (six) Branch hours as needed for Pain (scale 4-6). ibuprofen 2023-0 Yes [id number] 600mg Take 1 U nivers 600 mg 3-24 tablet by ity of tablet 00:00: mouth [place] 00 every 6 Medical (six) Branch hours as needed for Pain (scale 4-6). ibuprofen 2023-0 Yes [id number] 600mg Take 1 U nivers 600 mg 3-24 tablet by ity of tablet 00:00: mouth [place] 00 every 6 Medical (six) Branch hours as needed for Pain (scale 4-6). ibuprofen 2023-0 2023- No [id number] 600mg Take 1 [facility] 600 mg 3-24 05-01 tablet by ity of tablet 00:00: 00:00 mouth [place] 00 :00 every 6 Medical (six) Branch hours as needed for Pain (scale 4-6). ibuprofen 2023-0 2023- No [id number] 600mg Take 1 [facility] 600 mg 3-24 05-01 tablet by ity of tablet 00:00: 00:00 mouth [place] 00 :00 every 6 Medical (six) Branch hours as needed for Pain (scale 4-6). dicyclomine 2022-0 2022- No [id number] 20mg Take 1 [facility] 20 mg 3-24 04-01 tablet by ity of tablet 00:00: 04:59 mouth 4 [place] 00 :00 (four) Medical times [place] daily for 7 days. dicyclomine 2022-0 2022- No [id number] 20mg Take 1 [facility] 20 mg 3-24 04-01 tablet by ity of tablet 00:00: 04:59 mouth 4 [place] 00 :00 (four) Medical times [place] daily for 7 days. dicyclomine 2022-0 2022- No [id number] 20mg Take 1 [facility] 20 mg 3-24 04- tablet by ity of tablet 00:00: 04:59 mouth 4 [place] 00 :00 () Medical times [place] daily for 7 days. budesonide- 2022-0 Yes [id number] 2{puff} Inhale 2 [facility] glycopyr-fo 3-20 Puffs in ity of rmoterol 00:00: the [place] [facility] and 2 Branch 160-9-4.8 Puffs in mcg/actuati the on HFAA evening. budesonide- 2022-0 Yes [id number] 2{puff} Inhale 2 [facility] glycopyr-fo 3-20 Puffs in ity of rmoterol 00:00: the [place] ([facility] and 2 Branch 160-9-4.8 Puffs in mcg/actuati the on HFAA evening. budesonide- 2022-0 Yes [id number] 2{puff} Inhale 2 [facility] glycopyr-fo 3-20 Puffs in ity of rmoterol 00:00: the [place] ([facility] and 2 Branch 160-9-4.8 Puffs in mcg/actuati the on HFAA evening. budesonide- 2022-0 Yes [id number] 2{puff} Inhale 2 [facility] glycopyr-fo 3-20 Puffs in ity of rmoterol 00:00: the [place] ([facility] 00 [facility] and 2 Branch 160-9-4.8 Puffs in mcg/actuati the on HFAA evening. budesonide- 2022-0 Yes [id number] 2{puff} Inhale 2 [facility] glycopyr-fo 3-20 Puffs in ity of rmoterol 00:00: the [place] ([facility] 00 morning Medical [facility]) and 2 Branch 160-9-4.8 Puffs in mcg/actuati the on HFAA evening. budesonide- 2023-0 Yes [id number] 2{puff} Inhale 2 [facility] glycopyr-fo 3-20 Puffs in ity of rmoterol 00:00: the [place] ([facility] 00 morning Medical AEROSPHERE) and 2 Branch 160-9-4.8 Puffs in mcg/actuati the on HFAA evening. budesonide- 3-0 Yes [id number] 2{puff} Inhale 2 [facility] glycopyr-fo 3-20 Puffs in ity of rmoterol 00:00: the [place] ([facility] 00 morning Medical AEROSPHERE) and 2 Branch 160-9-4.8 Puffs in mcg/actuati the on HFAA evening. budesonide- 3-0 Yes [id number] 2{puff} Inhale 2 Univers glycopyr-fo 3-20 Puffs in ity of rmoterol 00:00: the [place] ([facility] 00 morning Medical AEROSPHERE) and 2 Branch 160-9-4.8 Puffs in mcg/actuati the on HFAA evening. budesonide- 3-0 Yes [id number] 2{puff} Inhale 2 [facility] glycopyr-fo 3-20 Puffs in ity of rmoterol 00:00: the [place] ([facility] 00 morning Medical AEROSPHERE) and 2 Branch 160-9-4.8 Puffs in mcg/actuati the on HFAA evening. budesonide- 3-0 Yes [id number] 2{puff} Inhale 2 Univers glycopyr-fo 3-20 Puffs in ity of rmoterol 00:00: the [place] ([facility] 00 morning Medical AEROSPHERE) and 2 Branch 160-9-4.8 Puffs in mcg/actuati the on HFAA evening. budesonide- 3-0 Yes [id number] 2{puff} Inhale 2 Univers glycopyr-fo 3-20 Puffs in ity of rmoterol 00:00: the [place] ([facility] 00 morning Medical AEROSPHERE) and 2 Branch 160-9-4.8 Puffs in mcg/actuati the on HFAA evening. budesonide- 2023-0 Yes [id number] 2{puff} Inhale 2 Univers glycopyr-fo 3-20 Puffs in ity of rmoterol 00:00: the [place] ([facility] 00 morning Medical AEROSPHERE) and 2 Branch 160-9-4.8 Puffs in mcg/actuati the on HFAA evening. budesonide- 3-0 Yes [id number] 2{puff} Inhale 2 Univers glycopyr-fo 3-20 Puffs in ity of rmoterol 00:00: the [place] ([facility] 00 morning Medical AEROSPHERE) and 2 Branch 160-9-4.8 Puffs in mcg/actuati the on HFAA evening. budesonide- 3-0 Yes [id number] 2{puff} Inhale 2 Univers glycopyr-fo 3-20 Puffs in ity of rmoterol 00:00: the [place] ([facility] Medical [facility]) and 2 Branch 160-9-4.8 Puffs in mcg/actuati the on HFAA evening. budesonide- 3-0 Yes [id number] 2{puff} Inhale 2 Univers glycopyr-fo 3-20 Puffs in ity of rmoterol 00:00: the [place] ([facility] 00 morning Medical AEROSPHERE) and 2 Branch 160-9-4.8 Puffs in mcg/actuati the on HFAA evening. budesonide- 3-0 Yes [id number] 2{puff} Inhale 2 Univers glycopyr-fo 3-20 Puffs in ity of rmoterol 00:00: the [place] ([facility] 00 morning Medical AEROSPHERE) and 2 Branch 160-9-4.8 Puffs in mcg/actuati the on HFAA evening. budesonide- 3-0 Yes [id number] 2{puff} Inhale 2 Univers glycopyr-fo 3-20 Puffs in ity of rmoterol 00:00: the [place] ([facility] Medical AER[facility]) and 2 Branch 160-9-4.8 Puffs in mcg/actuati the on HFAA evening. budesonide- 2023-0 Yes [id number] 2{puff} Inhale 2 Univers glycopyr-fo 3-20 Puffs in ity of rmoterol 00:00: the [place] ([facility] 00 morning Medical AEROSPHERE) and 2 Branch 160-9-4.8 Puffs in mcg/actuati the on HFAA evening. budesonide- 2022-0 Yes [id number] 2{puff} Inhale 2 Univers glycopyr-fo 3-20 Puffs in ity of rmoterol 00:00: the [place] ([facility] morning Medical AEROSPHERE) and 2 Branch 160-9-4.8 Puffs in mcg/actuati the on HFAA evening. budesonide- 2022-0 Yes [id number] 2{puff} Inhale 2 Univers glycopyr-fo 3-20 Puffs in ity of rmoterol 00:00: the [place] ([facility] Medical [facility]) and 2 Branch 160-9-4.8 Puffs in mcg/actuati the on HFAA evening. budesonide- 2022-0 Yes [id number] 2{puff} Inhale 2 Univers glycopyr-fo 3-20 Puffs in ity of rmoterol 00:00: the [place] ([facility] Medical [facility]) and 2 Branch 160-9-4.8 Puffs in mcg/actuati the on HFAA evening. budesonide- 2022-0 Yes [id number] 2{puff} Inhale 2 Univers glycopyr-fo 3-20 Puffs in ity of rmoterol 00:00: the [place] ([facility] Medical AEROS[facility]ERE) and 2 Branch 160-9-4.8 Puffs in mcg/actuati the on HFAA evening. budesonide- 3-0 Yes [id number] 2{puff} Inhale 2 Univers glycopyr-fo 3-20 Puffs in ity of rmoterol 00:00: the [place] ([facility] Medical AEROSPHERE) and 2 Branch 160-9-4.8 Puffs in mcg/actuati the on HFAA evening. budesonide- 3-0 Yes [id number] 2{puff} Inhale 2 Univers glycopyr-fo 3-20 Puffs in ity of rmoterol 00:00: the [place] ([facility] 00 morning Medical AEROSPHERE) and 2 Branch 160-9-4.8 Puffs in mcg/actuati the on HFAA evening. budesonide- 2023-0 Yes [id number] 2{puff} Inhale 2 Univers glycopyr-fo 3-20 Puffs in ity of rmoterol 00:00: the [place] ([facility] 00 morning Medical AEROSPHERE) and 2 Branch 160-9-4.8 Puffs in mcg/actuati the on HFAA evening. budesonide- 3-0 Yes [id number] 2{puff} Inhale 2 Univers glycopyr-fo 3-20 Puffs in ity of rmoterol 00:00: the [place] ([facility] 00 morning Medical AEROSPHERE) and 2 Branch 160-9-4.8 Puffs in mcg/actuati the on HFAA evening. budesonide- 3-0 Yes [id number] 2{puff} Inhale 2 Univers glycopyr-fo 3-20 Puffs in ity of rmoterol 00:00: the [place] ([facility] 00 morning Medical AEROSPHERE) and 2 Branch 160-9-4.8 Puffs in mcg/actuati the on HFAA evening. budesonide- 3-0 Yes [id number] 2{puff} Inhale 2 Univers glycopyr-fo 3-20 Puffs in ity of rmoterol 00:00: the [place] ([facility] 00 morning Medical AEROSPHERE) and 2 Branch 160-9-4.8 Puffs in mcg/actuati the on HFAA evening. budesonide- 3-0 Yes [id number] 2{puff} Inhale 2 Univers glycopyr-fo 3-20 Puffs in ity of rmoterol 00:00: the [place] ([facility] 00 morning Medical AEROSPHERE) and 2 Branch 160-9-4.8 Puffs in mcg/actuati the on HFAA evening. budesonide- 2023-0 Yes [id number] 2{puff} Inhale 2 Univers glycopyr-fo 3-20 Puffs in ity of rmoterol 00:00: the [place] ([facility] 00 morning Medical AEROSPHERE) and 2 Branch 160-9-4.8 Puffs in mcg/actuati the on HFAA evening. budesonide- 2023-0 Yes [id number] 2{puff} Inhale 2 Univers glycopyr-fo 3-20 Puffs in ity of rmoterol 00:00: the [place] ([facility] 00 [facility] Medical AEROSPHERE) and 2 Branch 160-9-4.8 Puffs in mcg/actuati the on HFAA evening. budesonide- 3-0 Yes [id number] 2{puff} Inhale 2 Univers glycopyr-fo 3-20 Puffs in ity of rmoterol 00:00: the [place] ([facility] 00 [facility] Medical AEROSPHERE) and 2 Branch 160-9-4.8 Puffs in mcg/actuati the on HFAA evening. budesonide- 3-0 Yes [id number] 2{puff} Inhale 2 Univers glycopyr-fo 3-20 Puffs in ity of rmoterol 00:00: the [place] ([facility] and 2 Branch 160-9-4.8 Puffs in mcg/actuati the on HFAA evening. budesonide- 3-0 Yes [id number] 2{puff} Inhale 2 Univers glycopyr-fo 3-20 Puffs in ity of rmoterol 00:00: the [place] ([facility] and 2 Branch 160-9-4.8 Puffs in mcg/actuati the on HFAA evening. budesonide- 3-0 Yes [id number] 2{puff} Inhale 2 Univers glycopyr-fo 3-20 Puffs in ity of rmoterol 00:00: the [place] ([facility] and 2 Branch 160-9-4.8 Puffs in mcg/actuati the on HFAA evening. budesonide- 2023-0 Yes [id number] 2{puff} Inhale 2 Univers glycopyr-fo 3-20 Puffs in ity of rmoterol 00:00: the [place] ([facility] and 2 Branch 160-9-4.8 Puffs in mcg/actuati the on HFAA evening. budesonide- 2023-0 Yes [id number] 2{puff} Inhale 2 Univers glycopyr-fo 3-20 Puffs in ity of rmoterol 00:00: the [place] ([facility] 00 morning Medical AEROSPHERE) and 2 Branch 160-9-4.8 Puffs in mcg/actuati the on HFAA evening. budesonide- 3-0 Yes [id number] 2{puff} Inhale 2 Univers glycopyr-fo 3-20 Puffs in ity of rmoterol 00:00: the [place] ([facility] 00 morning Medical AEROSPHERE) and 2 Branch 160-9-4.8 Puffs in mcg/actuati the on HFAA evening. budesonide- 3-0 Yes [id number] 2{puff} Inhale 2 Univers glycopyr-fo 3-20 Puffs in ity of rmoterol 00:00: the [place] ([facility] 00 morning Medical AEROSPHERE) and 2 Branch 160-9-4.8 Puffs in mcg/actuati the on HFAA evening. budesonide- 3-0 Yes [id number] 2{puff} Inhale 2 Univers glycopyr-fo 3-20 Puffs in ity of rmoterol 00:00: the [place] ([facility] 00 morning Medical AEROSPHERE) and 2 Branch 160-9-4.8 Puffs in mcg/actuati the on HFAA evening. budesonide- 3-0 Yes [id number] 2{puff} Inhale 2 Univers glycopyr-fo 3-20 Puffs in ity of rmoterol 00:00: the [place] ([facility] 00 morning Medical AEROSPHERE) and 2 Branch 160-9-4.8 Puffs in mcg/actuati the on HFAA evening. budesonide- 3-0 Yes [id number] 2{puff} Inhale 2 Univers glycopyr-fo 3-20 Puffs in ity of rmoterol 00:00: the [place] ([facility] 00 morning Medical AEROSPHERE) and 2 Branch 160-9-4.8 Puffs in mcg/actuati the on HFAA evening. budesonide- 3-0 Yes [id number] 2{puff} Inhale 2 Univers glycopyr-fo 3-20 Puffs in ity of rmoterol 00:00: the [place] ([facility] 00 morning Medical AEROSPHERE) and 2 Branch 160-9-4.8 Puffs in mcg/actuati the on HFAA evening. budesonide- 2023-0 Yes [id number] 2{puff} Inhale 2 Univers glycopyr-fo 3-20 Puffs in ity of rmoterol 00:00: the [place] ([facility] 00 [facility] Medical AEROSPHERE) and 2 Branch 160-9-4.8 Puffs in mcg/actuati the on HFAA evening. budesonide- 2023-0 Yes [id number] 2{puff} Inhale 2 Univers glycopyr-fo 3-20 Puffs in ity of rmoterol 00:00: the [place] ([facility] 00 morning Medical AEROSPHERE) and 2 Branch 160-9-4.8 Puffs in mcg/actuati the on HFAA evening. budesonide- 3-0 Yes [id number] 2{puff} Inhale 2 Univers glycopyr-fo 3-20 Puffs in ity of rmoterol 00:00: the [place] ([facility] Medical AEROS[facility]) and 2 Branch 160-9-4.8 Puffs in mcg/actuati the on HFAA evening. budesonide- 3-0 Yes [id number] 2{puff} Inhale 2 Univers glycopyr-fo 3-20 Puffs in ity of rmoterol 00:00: the [place] ([facility] 00 [facility] Medical AEROSPHERE) and 2 Branch 160-9-4.8 Puffs in mcg/actuati the on HFAA evening. budesonide- 3-0 Yes [id number] 2{puff} Inhale 2 Univers glycopyr-fo 3-20 Puffs in ity of rmoterol 00:00: the [place] ([facility] 00 [facility] Medical AEROSPHERE) and 2 Branch 160-9-4.8 Puffs in mcg/actuati the on HFAA evening. budesonide- 2023-0 Yes [id number] 2{puff} Inhale 2 Univers glycopyr-fo 3-20 Puffs in ity of rmoterol 00:00: the [place] ([facility] 00 [facility] and 2 Branch 160-9-4.8 Puffs in mcg/actuati the on HFAA evening. budesonide- 2023-0 Yes [id number] 2{puff} Inhale 2 Univers glycopyr-fo 3-20 Puffs in ity of rmoterol 00:00: the [place] ([facility] Medical AEROS[facility]ERE) and 2 Branch 160-9-4.8 Puffs in mcg/actuati the on HFAA evening. budesonide- 3-0 Yes [id number] 2{puff} Inhale 2 Univers glycopyr-fo 3-20 Puffs in ity of rmoterol 00:00: the [place] ([facility] Medical AEROS[facility]ERE) and 2 Branch 160-9-4.8 Puffs in mcg/actuati the on HFAA evening. budesonide- 3-0 Yes [id number] 2{puff} Inhale 2 Univers glycopyr-fo 3-20 Puffs in ity of rmoterol 00:00: the [place] ([facility] and 2 Branch 160-9-4.8 Puffs in mcg/actuati the on HFAA evening. budesonide- 3-0 Yes [id number] 2{puff} Inhale 2 Univers glycopyr-fo 3-20 Puffs in ity of rmoterol 00:00: the [place] ([facility] and 2 Branch 160-9-4.8 Puffs in mcg/actuati the on HFAA evening. budesonide- 3-0 Yes [id number] 2{puff} Inhale 2 Univers glycopyr-fo 3-20 Puffs in ity of rmoterol 00:00: the [place] ([facility] and 2 Branch 160-9-4.8 Puffs in mcg/actuati the on HFAA evening. budesonide- 3-0 Yes [id number] 2{puff} Inhale 2 Univers glycopyr-fo 3-20 Puffs in ity of rmoterol 00:00: the [place] [facility] and 2 Branch 160-9-4.8 Puffs in mcg/actuati the on HFAA evening. budesonide- 2023-0 Yes [id number] 2{puff} Inhale 2 Univers glycopyr-fo 3-20 Puffs in ity of rmoterol 00:00: the [place] ([facility] 00 [facility]) and 2 Branch 160-9-4.8 Puffs in mcg/actuati the on HFAA evening. budesonide- 2023-0 Yes [id number] 2{puff} Inhale 2 Univers glycopyr-fo 3-20 Puffs in ity of rmoterol 00:00: the [place] ([facility] 00 morning [facility]) and 2 Branch 160-9-4.8 Puffs in mcg/actuati the on HFAA evening. budesonide- 2023-0 Yes [id number] 2{puff} Inhale 2 Univers glycopyr-fo 3-20 Puffs in ity of rmoterol 00:00: the [place] ([facility] 00 morning [facility]) and 2 Branch 160-9-4.8 Puffs in mcg/actuati the on HFAA evening. budesonide- 3-0 Yes [id number] 2{puff} Inhale 2 Univers glycopyr-fo 3-20 Puffs in ity of rmoterol 00:00: the [place] ([facility] 00 morning [facility]) and 2 Branch 160-9-4.8 Puffs in mcg/actuati the on HFAA evening. budesonide- 3-0 Yes [id number] 2{puff} Inhale 2 Univers glycopyr-fo 3-20 Puffs in ity of rmoterol 00:00: the [place] ([facility] 00 morning Medical AEROSPHERE) and 2 Branch 160-9-4.8 Puffs in mcg/actuati the on HFAA evening. budesonide- 2023-0 Yes [id number] 2{puff} Inhale 2 Univers glycopyr-fo 3-20 Puffs in ity of rmoterol 00:00: the [place] ([facility] 00 morning Medical AEROSPHERE) and 2 Branch 160-9-4.8 Puffs in mcg/actuati the on HFAA evening. budesonide- 2023-0 Yes [id number] 2{puff} Inhale 2 [facility] glycopyr-fo 3-20 Puffs in ity of rmoterol 00:00: the [place] ([facility] 00 morning Medical AEROSPHERE) and 2 Branch 160-9-4.8 Puffs in mcg/actuati the on HFAA evening. budesonide- 2023-0 Yes [id number] 2{puff} Inhale 2 Univers glycopyr-fo 3-20 Puffs in ity of rmoterol 00:00: the [place] ([facility] and 2 Branch 160-9-4.8 Puffs in mcg/actuati the on HFAA evening. budesonide- 3-0 Yes [id number] 2{puff} Inhale 2 Univers glycopyr-fo 3-20 Puffs in ity of rmoterol 00:00: the [place] ([facility] Medical AEROSPHERE) and 2 Branch 160-9-4.8 Puffs in mcg/actuati the on HFAA evening. budesonide- 3-0 Yes [id number] 2{puff} Inhale 2 Univers glycopyr-fo 3-20 Puffs in ity of rmoterol 00:00: the [place] ([facility] and 2 Branch 160-9-4.8 Puffs in mcg/actuati the on HFAA evening. budesonide- 3-0 Yes [id number] 2{puff} Inhale 2 Univers glycopyr-fo 3-20 Puffs in ity of rmoterol 00:00: the [place] ([facility] and 2 Branch 160-9-4.8 Puffs in mcg/actuati the on HFAA evening. budesonide- 3-0 Yes [id number] 2{puff} Inhale 2 Univers glycopyr-fo 3-20 Puffs in ity of rmoterol 00:00: the [place] ([facility] and 2 Branch 160-9-4.8 Puffs in mcg/actuati the on HFAA evening. budesonide- 3-0 Yes [id number] 2{puff} Inhale 2 Univers glycopyr-fo 3-20 Puffs in ity of rmoterol 00:00: the [place] ([facility] and 2 Branch 160-9-4.8 Puffs in mcg/actuati the on HFAA evening. budesonide- 3-0 Yes [id number] 2{puff} Inhale 2 Univers glycopyr-fo 3-20 Puffs in ity of rmoterol 00:00: the [place] ([facility] 00 morning Medical AEROSPHERE) and 2 Branch 160-9-4.8 Puffs in mcg/actuati the on HFAA evening. budesonide- 3-0 Yes [id number] 2{puff} Inhale 2 Univers glycopyr-fo 3-20 Puffs in ity of rmoterol 00:00: the [place] ([facility] 00 morning Medical AEROSPHERE) and 2 Branch 160-9-4.8 Puffs in mcg/actuati the on HFAA evening. budesonide- 3-0 Yes [id number] 2{puff} Inhale 2 Univers glycopyr-fo 3-20 Puffs in ity of rmoterol 00:00: the [place] ([facility] 00 morning Medical AEROSPHERE) and 2 Branch 160-9-4.8 Puffs in mcg/actuati the on HFAA evening. budesonide- 3-0 Yes [id number] 2{puff} Inhale 2 Univers glycopyr-fo 3-20 Puffs in ity of rmoterol 00:00: the [place] ([facility] 00 morning Medical AEROSPHERE) and 2 Branch 160-9-4.8 Puffs in mcg/actuati the on HFAA evening. budesonide- 3-0 Yes [id number] 2{puff} Inhale 2 Univers glycopyr-fo 3-20 Puffs in ity of rmoterol 00:00: the [place] ([facility] 00 morning Medical AEROSPHERE) and 2 Branch 160-9-4.8 Puffs in mcg/actuati the on HFAA evening. budesonide- 3-0 Yes [id number] 2{puff} Inhale 2 Univers glycopyr-fo 3-20 Puffs in ity of rmoterol 00:00: the [place] ([facility] 00 morning Medical AEROSPHERE) and 2 Branch 160-9-4.8 Puffs in mcg/actuati the on HFAA evening. budesonide- 3-0 Yes [id number] 2{puff} Inhale 2 Univers glycopyr-fo 3-20 Puffs in ity of rmoterol 00:00: the [place] ([facility] 00 morning Medical AEROSPHERE) and 2 Branch 160-9-4.8 Puffs in mcg/actuati the on HFAA evening. budesonide- 2023-0 Yes [id number] 2{puff} Inhale 2 Univers glycopyr-fo 3-20 Puffs in ity of rmoterol 00:00: the [place] ([facility] 00 [facility] Medical AEROSPHERE) and 2 Branch 160-9-4.8 Puffs in mcg/actuati the on HFAA evening. budesonide- 3-0 Yes [id number] 2{puff} Inhale 2 Univers glycopyr-fo 3-20 Puffs in ity of rmoterol 00:00: the [place] ([facility] 00 morning Medical AEROSPHERE) and 2 Branch 160-9-4.8 Puffs in mcg/actuati the on HFAA evening. budesonide- 3-0 Yes [id number] 2{puff} Inhale 2 Univers glycopyr-fo 3-20 Puffs in ity of rmoterol 00:00: the [place] ([facility] Medical AEROSPHERE) and 2 Branch 160-9-4.8 Puffs in mcg/actuati the on HFAA evening. budesonide- 3-0 Yes [id number] 2{puff} Inhale 2 Univers glycopyr-fo 3-20 Puffs in ity of rmoterol 00:00: the [place] ([facility] Medical AEROSPHERE) and 2 Branch 160-9-4.8 Puffs in mcg/actuati the on HFAA evening. budesonide- 3-0 Yes [id number] 2{puff} Inhale 2 Univers glycopyr-fo 3-20 Puffs in ity of rmoterol 00:00: the [place] ([facility] 00 [facility] Medical AEROSPHERE) and 2 Branch 160-9-4.8 Puffs in mcg/actuati the on HFAA evening. budesonide- 3-0 Yes [id number] 2{puff} Inhale 2 Univers glycopyr-fo 3-20 Puffs in ity of rmoterol 00:00: the [place] ([facility] Medical AEROSPHERE) and 2 Branch 160-9-4.8 Puffs in mcg/actuati the on HFAA evening. budesonide- 3-0 Yes [id number] 2{puff} Inhale 2 Univers glycopyr-fo 3-20 Puffs in ity of rmoterol 00:00: the [place] ([facility] AEROSPHERE) and 2 Branch 160-9-4.8 Puffs in mcg/actuati the on HFAA evening. budesonide- 3-0 Yes [id number] 2{puff} Inhale 2 Univers glycopyr-fo 3-20 Puffs in ity of rmoterol 00:00: the [place] ([facility] Medical AEROSPHERE) and 2 Branch 160-9-4.8 Puffs in mcg/actuati the on HFAA evening. budesonide- 3-0 Yes [id number] 2{puff} Inhale 2 Univers glycopyr-fo 3-20 Puffs in ity of rmoterol 00:00: the [place] ([facility] and 2 Branch 160-9-4.8 Puffs in mcg/actuati the on HFAA evening. budesonide- 2022-0 Yes [id number] 2{puff} Inhale 2 Univers glycopyr-fo 3-20 Puffs in ity of rmoterol 00:00: the [place] ([facility] and 2 Branch 160-9-4.8 Puffs in mcg/actuati the on HFAA evening. budesonide- 3-0 Yes [id number] 2{puff} Inhale 2 Univers glycopyr-fo 3-20 Puffs in ity of rmoterol 00:00: the [place] ([facility] and 2 Branch 160-9-4.8 Puffs in mcg/actuati the on HFAA evening. budesonide- 3-0 Yes [id number] 2{puff} Inhale 2 Univers glycopyr-fo 3-20 Puffs in ity of rmoterol 00:00: the [place] [facility] and 2 Branch 160-9-4.8 Puffs in mcg/actuati the on HFAA evening. budesonide- 3-0 Yes [id number] 2{puff} Inhale 2 Univers glycopyr-fo 3-20 Puffs in ity of rmoterol 00:00: the [place] ([facility] 00 morning Medical AEROSPHERE) and 2 Branch 160-9-4.8 Puffs in mcg/actuati the on HFAA evening. budesonide- 3-0 Yes [id number] 2{puff} Inhale 2 [facility] glycopyr-fo 3-20 Puffs in ity of rmoterol 00:00: the [place] ([facility] 00 morning Medical AEROSPHERE) and 2 Branch 160-9-4.8 Puffs in mcg/actuati the on HFAA evening. budesonide- 3-0 Yes [id number] 2{puff} Inhale 2 Univers glycopyr-fo 3-20 Puffs in ity of rmoterol 00:00: the [place] ([facility] 00 morning Medical AEROSPHERE) and 2 Branch 160-9-4.8 Puffs in mcg/actuati the on HFAA evening. budesonide- 3-0 Yes [id number] 2{puff} Inhale 2 Univers glycopyr-fo 3-20 Puffs in ity of rmoterol 00:00: the [place] ([facility] 00 morning Medical AEROSPHERE) and 2 Branch 160-9-4.8 Puffs in mcg/actuati the on HFAA evening. budesonide- 3-0 Yes [id number] 2{puff} Inhale 2 Univers glycopyr-fo 3-20 Puffs in ity of rmoterol 00:00: the [place] ([facility] 00 morning Medical AEROSPHERE) and 2 Branch 160-9-4.8 Puffs in mcg/actuati the on HFAA evening. budesonide- 3-0 Yes [id number] 2{puff} Inhale 2 Univers glycopyr-fo 3-20 Puffs in ity of rmoterol 00:00: the [place] ([facility] 00 morning Medical AEROSPHERE) and 2 Branch 160-9-4.8 Puffs in mcg/actuati the on HFAA evening. budesonide- 3-0 Yes [id number] 2{puff} Inhale 2 Univers glycopyr-fo 3-20 Puffs in ity of rmoterol 00:00: the [place] ([facility] 00 morning Medical AEROSPHERE) and 2 Branch 160-9-4.8 Puffs in mcg/actuati the on HFAA evening. budesonide- 3-0 Yes [id number] 2{puff} Inhale 2 Univers glycopyr-fo 3-20 Puffs in ity of rmoterol 00:00: the [place] ([facility] 00 [facility] AEROS[facility]ERE) and 2 Branch 160-9-4.8 Puffs in mcg/actuati the on HFAA evening. budesonide- 3-0 Yes [id number] 2{puff} Inhale 2 Univers glycopyr-fo 3-20 Puffs in ity of rmoterol 00:00: the [place] ([facility] 00 [facility] Medical AEROSPHERE) and 2 Branch 160-9-4.8 Puffs in mcg/actuati the on HFAA evening. budesonide- 3-0 Yes [id number] 2{puff} Inhale 2 Univers glycopyr-fo 3-20 Puffs in ity of rmoterol 00:00: the [place] ([facility] and 2 Branch 160-9-4.8 Puffs in mcg/actuati the on HFAA evening. budesonide- 3-0 Yes [id number] 2{puff} Inhale 2 Univers glycopyr-fo 3-20 Puffs in ity of rmoterol 00:00: the [place] ([facility] and 2 Branch 160-9-4.8 Puffs in mcg/actuati the on HFAA evening. budesonide- 3-0 Yes [id number] 2{puff} Inhale 2 Univers glycopyr-fo 3-20 Puffs in ity of rmoterol 00:00: the [place] ([facility] and 2 Branch 160-9-4.8 Puffs in mcg/actuati the on HFAA evening. budesonide- 2023-0 Yes [id number] 2{puff} Inhale 2 Univers glycopyr-fo 3-20 Puffs in ity of rmoterol 00:00: the [place] ([facility] Medical AEROSPHERE) and 2 Branch 160-9-4.8 Puffs in mcg/actuati the on HFAA evening. budesonide- 3-0 Yes [id number] 2{puff} Inhale 2 Univers glycopyr-fo 3-20 Puffs in ity of rmoterol 00:00: the [place] ([facility] 00 morning Medical AEROSPHERE) and 2 Branch 160-9-4.8 Puffs in mcg/actuati the on HFAA evening. budesonide- 3-0 Yes [id number] 2{puff} Inhale 2 Univers glycopyr-fo 3-20 Puffs in ity of rmoterol 00:00: the [place] ([facility] 00 morning Medical AEROSPHERE) and 2 Branch 160-9-4.8 Puffs in mcg/actuati the on HFAA evening. budesonide- 3-0 Yes [id number] 2{puff} Inhale 2 Univers glycopyr-fo 3-20 Puffs in ity of rmoterol 00:00: the [place] ([facility] 00 morning Medical AEROSPHERE) and 2 Branch 160-9-4.8 Puffs in mcg/actuati the on HFAA evening. budesonide- 3-0 Yes [id number] 2{puff} Inhale 2 Univers glycopyr-fo 3-20 Puffs in ity of rmoterol 00:00: the [place] ([facility] 00 morning Medical AEROSPHERE) and 2 Branch 160-9-4.8 Puffs in mcg/actuati the on HFAA evening. budesonide- 3-0 Yes [id number] 2{puff} Inhale 2 Univers glycopyr-fo 3-20 Puffs in ity of rmoterol 00:00: the [place] ([facility] 00 morning Medical AEROSPHERE) and 2 Branch 160-9-4.8 Puffs in mcg/actuati the on HFAA evening. budesonide- 3-0 Yes [id number] 2{puff} Inhale 2 Univers glycopyr-fo 3-20 Puffs in ity of rmoterol 00:00: the [place] ([facility] 00 morning Medical AEROSPHERE) and 2 Branch 160-9-4.8 Puffs in mcg/actuati the on HFAA evening. budesonide- 3-0 Yes [id number] 2{puff} Inhale 2 Univers glycopyr-fo 3-20 Puffs in ity of rmoterol 00:00: the [place] ([facility] 00 morning Medical AEROSPHERE) and 2 Branch 160-9-4.8 Puffs in mcg/actuati the on HFAA evening. budesonide- 2023-0 Yes [id number] 2{puff} Inhale 2 Univers glycopyr-fo 3-20 Puffs in ity of rmoterol 00:00: the [place] ([facility] 00 [facility] and 2 Branch 160-9-4.8 Puffs in mcg/actuati the on HFAA evening. budesonide- 3-0 Yes [id number] 2{puff} Inhale 2 Univers glycopyr-fo 3-20 Puffs in ity of rmoterol 00:00: the [place] ([facility] 00 [facility] Medical AEROSPHERE) and 2 Branch 160-9-4.8 Puffs in mcg/actuati the on HFAA evening. budesonide- 3-0 Yes [id number] 2{puff} Inhale 2 Univers glycopyr-fo 3-20 Puffs in ity of rmoterol 00:00: the [place] ([facility] and 2 Branch 160-9-4.8 Puffs in mcg/actuati the on HFAA evening. budesonide- 3-0 Yes [id number] 2{puff} Inhale 2 Univers glycopyr-fo 3-20 Puffs in ity of rmoterol 00:00: the [place] ([facility] and 2 Branch 160-9-4.8 Puffs in mcg/actuati the on HFAA evening. budesonide- 3-0 Yes [id number] 2{puff} Inhale 2 Univers glycopyr-fo 3-20 Puffs in ity of rmoterol 00:00: the [place] ([facility] and 2 Branch 160-9-4.8 Puffs in mcg/actuati the on HFAA evening. budesonide- 2023-0 Yes [id number] 2{puff} Inhale 2 Univers glycopyr-fo 3-20 Puffs in ity of rmoterol 00:00: the [place] ([facility] and 2 Branch 160-9-4.8 Puffs in mcg/actuati the on HFAA evening. budesonide- 2023-0 Yes [id number] 2{puff} Inhale 2 Univers glycopyr-fo 3-20 Puffs in ity of rmoterol 00:00: the [place] ([facility] 00 morning Medical AEROSPHERE) and 2 Branch 160-9-4.8 Puffs in mcg/actuati the on HFAA evening. budesonide- 2023-0 Yes [id number] 2{puff} Inhale 2 Univers glycopyr-fo 3-20 Puffs in ity of rmoterol 00:00: the [place] ([facility] 00 morning Medical AEROSPHERE) and 2 Branch 160-9-4.8 Puffs in mcg/actuati the on HFAA evening. budesonide- 2023-0 Yes [id number] 2{puff} Inhale 2 Univers glycopyr-fo 3-20 Puffs in ity of rmoterol 00:00: the [place] ([facility] 00 morning Medical AEROSPHERE) and 2 Branch 160-9-4.8 Puffs in mcg/actuati the on HFAA evening. budesonide- 3-0 Yes [id number] 2{puff} Inhale 2 Univers glycopyr-fo 3-20 Puffs in ity of rmoterol 00:00: the [place] ([facility] 00 morning Medical AEROSPHERE) and 2 Branch 160-9-4.8 Puffs in mcg/actuati the on HFAA evening. budesonide- 3-0 Yes [id number] 2{puff} Inhale 2 Univers glycopyr-fo 3-20 Puffs in ity of rmoterol 00:00: the [place] ([facility] morning Medical AEROSPHERE) and 2 Branch 160-9-4.8 Puffs in mcg/actuati the on HFAA evening. ESOMEPRAZOL 2022- No 20mg Take 20 mg Univers E MAG 2-09-15 by mouth ity of TRIHYDRATE 07:53: 00:00 once now. [place] (NEXIUM 38 :00 Medical ORAL) Branch ESOMEPRAZOL 2022-0 2022- No 20mg Take 20 mg Univers E MAG 2-28 09-15 by mouth ity of TRIHYDRATE 07:53: 00:00 once now. [place] (NEXIUM 38 :00 Medical ORAL) Branch ESOMEPRAZOL 0 2022- No 20mg Take 20 mg Univers E MAG 2-28 02-28 by mouth ity of TRIHYDRATE 07:53: 00:00 once now. [place] (NEXIUM 38 :00 Medical ORAL) Branch ESOMEPRAZOL 2022- No 20mg Take 20 mg Univers E MAG 2-28 02-28 by mouth ity of TRIHYDRATE 07:53: 00:00 once now. [place] (NEXIUM 38 :00 Medical ORAL) Branch esomeprazol 0 Yes [id number] 20mg Take 20 mg Univers e 20 mg 2-28 by mouth ity of capsule 00:00: daily [place] 00 before a Medical meal. Branch esomeprazol 0 Yes [id number] 20mg Take 20 mg Univers e 20 mg 2-28 by mouth ity of capsule 00:00: daily [place] 00 before a Medical meal. Branch esomeprazol Yes [id number] 20mg Take 20 mg Univers e 20 mg 2-28 by mouth ity of capsule 00:00: daily [place] 00 before a Medical meal. Branch esomeprazol Yes [id number] 20mg Take 20 mg Univers e 20 mg 2-28 by mouth ity of capsule 00:00: daily [place] 00 before a Medical meal. Branch esomeprazol 0 Yes [id number] 20mg Take 20 mg Univers e 20 mg 2-28 by mouth ity of capsule 00:00: daily [place] 00 before a Medical meal. Branch esomeprazol 0 Yes [id number] 20mg Take 20 mg Univers e 20 mg 2-28 by mouth ity of capsule 00:00: daily [place] 00 before a Medical meal. Branch esomeprazol 0 Yes [id number] 20mg Take 20 mg Univers e 20 mg 2-28 by mouth ity of capsule 00:00: daily [place] 00 before a Medical meal. Branch esomeprazol 0 Yes [id number] 20mg Take 20 mg Univers e 20 mg 2-28 by mouth ity of capsule 00:00: daily [place] 00 before a Medical meal. Branch esomeprazol 2022-0 Yes [id number] 20mg Take 20 mg Univers e 20 mg 2-28 by mouth ity of capsule 00:00: daily [place] 00 before a Medical meal. Branch esomeprazol 2022-0 Yes [id number] 20mg Take 20 mg Univers e 20 mg 2-28 by mouth ity of capsule 00:00: daily [place] 00 before a Medical meal. Branch esomeprazol 3-0 Yes [id number] 20mg Take 20 mg Univers e 20 mg 2-28 by mouth ity of capsule 00:00: daily [place] 00 before a Medical meal. Branch esomeprazol 3-0 Yes [id number] 20mg Take 20 mg Univers e 20 mg 2-28 by mouth ity of capsule 00:00: daily [place] 00 before a Medical meal. Branch esomeprazol 2022-0 3- No [id number] 20mg Take 20 mg Univers e 20 mg 2-28 -24 by mouth ity of capsule 00:00: 00:00 daily [place] 00 :00 before a Medical meal. [place] KEPPRA 100 2022-0 2022- No 12 ml BID U nivers MG/ML ORAL 08-19 , per mom ity of SOLN 09:36: 00:00 [place] 06 :00 [facility] KEPPRA 100 2022-0 2023- No 12 ml BID U nivers MG/ML ORAL 08-19 , per mom ity of SOLN 09:36: 00:00 [place] 06 :00 [facility] KEPPRA 100 2022-0 3- No 12 ml BID U nivers MG/ML ORAL 08-19 , per mom ity of SOLN 09:36: 00:00 [place] 06 :00 Medical [place] KEPPRA 100 2022-0 2023- No 12 ml BID U nivers MG/ML ORAL 08-19 , per mom ity of SOLN 09:36: 00:00 [place] 06 :00 Medical Branch KEPPRA 100 2022-0 2023- No 12 ml BID U nivers MG/ML ORAL 08-19 , per mom ity of SOLN 09:36: 00:00 [place] 06 :00 Medical Branch KEPPRA 100 2022-0 3- No 12 ml BID U nivers MG/ML ORAL 08-19 , per mom ity of SOLN 09:36: 00:00 [place] 06 :00 [facility] Branch DIASTAT 2022022- No 10mg as [facility] ACUDIAL 08-19 needed for ity o f 5-7.5-10 MG 09:35: 00:00 seizure [place] RECTAL KIT 50 :00 lasting Medica l greater Branch than 5 min DIASTAT 2022- No 10mg as [facility] ACUDIAL 08-19 needed for ity o f 5-7.5-10 MG 09:35: 00:00 seizure [place] RECTAL KIT 50 :00 lasting Medica l greater Branch than 5 min DIASTAT 2022- No 10mg as [facility] ACUDIAL 08-19 needed for ity o f 5-7.5-10 MG 09:35: 00:00 seizure [place] RECTAL KIT 50 :00 lasting Medica l greater Branch than 5 min DIASTAT 2022- No 10mg as [facility] ACUDIAL 08-19 needed for ity o f 5-7.5-10 MG 09:35: 00:00 seizure [place] RECTAL KIT 50 :00 lasting Medica l greater Branch than 5 min DIASTAT 2022- No 10mg as [facility] ACUDIAL 08-19 needed for ity o f 5-7.5-10 MG 09:35: 00:00 seizure [place] RECTAL KIT 50 :00 lasting Medica l greater Branch than 5 min DIASTAT 2022- No 10mg as [facility] ACUDIAL 08-19 needed for ity [...] affected ity o f aquaphor 08:59: area(s). [place] (COMPOUNDED 36 Medical ) ointment Branch ARIPiprazol Yes by Univer s e (ABILIFY 08-19 [...] affected ity o f aquaphor 08:59: area(s). [place] (COMPOUNDED 36 Medical ) ointment Branch ARIPiprazol [...] affected ity o f aquaphor 08:59: area(s). [place] (COMPOUNDED 36 Medical ) ointment Branch ARIPiprazol [...] affected ity o f aquaphor 08:59: area(s). [place] (COMPOUNDED 36 Medical ) ointment Branch ARIPiprazol [...] affected ity o f aquaphor 08:59: area(s). [place] (COMPOUNDED 36 Medical ) ointment Branch ARIPiprazol [...] affected ity o f aquaphor 08:59: area(s). [place] (COMPOUNDED 36 Medical ) ointment Branch ARIPiprazol [...] affected ity o f aquaphor 08:59: area(s). [place] (COMPOUNDED 36 Medical ) ointment Branch ARIPiprazol [...] affected ity o f aquaphor 08:59: area(s). [place] (COMPOUNDED 36 Medical ) ointment Branch ARIPiprazol [...] affected ity o f aquaphor 08:59: area(s). [place] (COMPOUNDED 36 Medical ) ointment Branch ARIPiprazol 2022-0 Yes by Univer s e (ABILIFY 2 Intramuscu ity of MAINTENA) 08:59: lar route [place] as 300 mg sers 36 once every Me dical month. Branch triamcinolo 2022-0 Yes Apply to Un [place] 0.1% in 08-19 affected ity o f aquaphor 08:59: area(s). [place] (COMPOUNDED 36 Medical ) ointment Branch ARIPiprazol 2022-0 Yes by Univer s e (ABILIFY 2 Intramuscu ity of MAINTENA) 08:59: lar route [place] as 300 mg sers 36 once every Me dical month. Branch triamcinolo 2023-0 Yes Apply to [place] 0.1% in 08-19 affected ity o f aquaphor 08:59: area(s). [place] (COMPOUNDED 36 Medical ) ointment Branch ARIPiprazol 2022-0 Yes by Univer s e (ABILIFY 2 Intramuscu ity of MAINTENA) 08:59: lar route [place] as 300 mg sers 36 once every Me dical month. Branch triamcinolo 2022-0 Yes Apply to Un [place] 0.1% in 08-19 affected ity o f aquaphor 08:59: area(s). [place] (COMPOUNDED 36 Medical ) ointment Branch ARIPiprazol 2022-0 Yes by Univer s e (ABILIFY 2 Intramuscu ity of MAINTENA) 08:59: lar route [place] as 300 mg sers 36 once every Me dical month. Branch triamcinolo 2022-0 Yes Apply to [place] 0.1% in 08-19 affected ity o f aquaphor 08:59: area(s). [place] (COMPOUNDED 36 Medical ) ointment Branch ARIPiprazol 2022-0 Yes by Univer s e (ABILIFY 2 Intramuscu ity of MAINTENA) 08:59: lar route [place] 300 mg sers 36 once every Me dical month. Branch triamcinolo 2022-0 Yes Apply to [place] 0.1% in 08-19 affected ity o f aquaphor 08:59: area(s). [place] (COMPOUNDED 36 Medical ) ointment Branch ARIPiprazol 2022-0 Yes by Univer s e (ABILIFY 2 Intramuscu ity of MAINTENA) 08:59: lar route [place] 300 mg sers 36 once every Me dical month. Branch triamcinolo 2022-0 Yes Apply to [place] 0.1% in 08-19 affected ity o f aquaphor 08:59: area(s). [place] (COMPOUNDED 36 Medical ) ointment Branch ARIPiprazol 3-0 Yes by Univer s e (ABILIFY 2- Intramuscu ity of MAINTENA) 08:59: lar route [place] 300 mg sers 36 once every Me dical month. Branch triamcinolo 3-0 Yes Apply to Un [place] 0.1% in 08-19 affected ity o f aquaphor 08:59: area(s). [place] (COMPOUNDED 36 Medical ) ointment Branch ARIPiprazol 3-0 Yes by Univer s e (ABILIFY 2 Intramuscu ity of MAINTENA) 08:59: lar route [place] as 300 mg sers 36 once every Me dical month. Branch triamcinolo 3-0 Yes Apply to Un [place] 0.1% in 08-19 affected ity o f aquaphor 08:59: area(s). [place] (COMPOUNDED [facility] ) ointment Branch ARIPiprazol 3-0 Yes by Univer s e (ABILIFY 2 Intramuscu ity of [place]) 08:59: lar route [place] as 300 mg sers 36 once every Me dical month. Branch triamcinolo 3-0 Yes Apply to [place] 0.1% in 08-19 affected ity o f aquaphor 08:59: area(s). [place] (COMPOUNDED 36 [facility] ) ointment Branch ARIPiprazol 3-0 Yes by Univer s e (ABILIFY 2 Intramuscu ity of [place]) 08:59: lar route [place] as 300 mg sers 36 once every Me dical month. Branch triamcinolo 3-0 Yes Apply to [place] 0.1% in 08-19 affected ity o f aquaphor 08:59: area(s). [place] (COMPOUNDED 36 [facility] ) ointment Branch ARIPiprazol 3-0 Yes by Univer s e (ABILIFY 2 Intramuscu ity of [place]) 08:59: lar route [place] as 300 mg sers 36 once every Me dical month. Branch triamcinolo 3-0 Yes Apply to [place] 0.1% in 08-19 affected ity o f aquaphor 08:59: area(s). [place] (COMPOUNDED 36 [facility] ) ointment Branch ARIPiprazol 3-0 Yes by Univer s e (ABILIFY 2 Intramuscu ity of [place]) 08:59: lar route [place] as 300 mg sers 36 once every Me dical month. Branch triamcinolo 3-0 Yes Apply to [place] 0.1% in - affected ity o f aquaphor 08:59: area(s). [place] (COMPOUNDED 36 [facility] ) ointment Branch ARIPiprazol 3-0 Yes by Univer s e (ABILIFY 08-19 Intramuscu ity of [place]) 08:59: lar route [place] as 300 mg sers 36 once every Me dical month. Branch triamcinolo 3-0 Yes Apply to [place] 0.1% in 08-19 affected ity o f aquaphor 08:59: area(s). [place] (COMPOUNDED 36 [facility] ) ointment Branch ARIPiprazol 3-0 Yes by [facility] (ABILIFY 08-19 Intramuscu ity of [place]) 08:59: lar route [place] as 300 mg sers 36 once every Me dical month. Branch triamcinolo 3-0 Yes Apply to [place] 0.1% in 08-19 affected ity o f aquaphor 08:59: area(s). [place] (COMPOUNDED 36 Medical ) ointment Branch ARIPiprazol 3-0 Yes by [facility] (ABILIFY 08-19 Intramus[facility] ity of [place]) 08:59: lar route [place] as 300 mg sers 36 once every Me dical month. Branch triamcinolo 3-0 Yes Apply to [place] 0.1% in 08-19 affected ity o f aquaphor 08:59: area(s). [place] (COMPOUNDED 36 Medical ) ointment Branch ARIPiprazol 3-0 Yes by [facility] (ABILIFY 08-19 Intr[facility]y of [place]) 08:59: lar route [place] 300 mg sers 36 once every Me dical month. Branch triamcinolo 2023-0 Yes Apply to [place] 0.1% in 2- affected ity o f aquaphor 08:59: area(s). [place] (COMPOUNDED 36 Medical ) ointment Branch ARIPiprazol 2022-0 Yes by [facility] (ABILIFY 2 Intr[facility] of [place]) 08:59: lar route [place] 300 mg sers 36 once every Me dical month. Branch triamcinolo 2022-0 Yes Apply to [place] 0.1% in 08-19 affected ity o f aquaphor 08:59: area(s). [place] (COMPOUNDED 36 Medical ) ointment Branch ARIPiprazol 2022-0 Yes by [facility] (ABILIFY 2 Intr[facility] of [place]) 08:59: lar route [place] 300 mg sers 36 once every Me dical month. Branch triamcinolo 2022-0 Yes Apply to [place] 0.1% in 08-19 affected ity o f aquaphor 08:59: area(s). [place] (COMPOUNDED 36 Medical ) ointment Branch ARIPiprazol 2022-0 Yes by [facility] (ABILIFY 08-19 Intr[facility] of [place]) 08:59: lar route [place] 300 mg sers 36 once every Me dical month. Branch triamcinolo 2022-0 Yes Apply to [place] 0.1% in 08-19 affected ity o f aquaphor 08:59: area(s). [place] (COMPOUNDED 36 Medical ) ointment Branch ARIPiprazol 2022-0 Yes by [facility] (ABILIFY 08-19 Intr[facility] of [place]) 08:59: lar route [place] 300 mg sers 36 once every Me dical month. Branch triamcinolo 2022-0 Yes Apply to [place] 0.1% in 08-19 affected ity o f aquaphor 08:59: area(s). [place] (COMPOUNDED 36 Medical ) ointment Branch ARIPiprazol 2022-0 Yes by [facility] (ABILIFY 2 [facility] of [place]) 08:59: lar route [place] 300 mg sers 36 once every Me dical month. Branch triamcinolo 3-0 Yes Apply to [place] 0.1% in - affected ity o f aquaphor 08:59: area(s). [place] (COMPOUNDED 36 Medical ) ointment Branch ARIPiprazol 3-0 Yes by [facility] (ABILIFY 2- Intramus[facility] of [place]) 08:59: lar route [place] 300 mg sers 36 once every Me dical month. Branch triamcinolo 3-0 Yes Apply to [place] 0.1% in 2- affected ity o f aquaphor 08:59: area(s). [place] (COMPOUNDED 36 Medical ) ointment Branch ARIPiprazol 3-0 Yes by [facility] (ABILIFY 2 Intr[facility] of [place]) 08:59: lar route [place] 300 mg sers 36 once every Me dical month. Branch triamcinolo 3-0 Yes Apply to [place] 0.1% in 2- affected ity o f aquaphor 08:59: area(s). [place] (COMPOUNDED 36 Medical ) ointment Branch ARIPiprazol 3-0 Yes by [facility] (ABILIFY 2- Intr[facility] of [place]) 08:59: lar route [place] 300 mg sers 36 once every Me dical month. Branch triamcinolo 3-0 Yes Apply to [place] 0.1% in 2- affected ity o f aquaphor 08:59: area(s). [place] (COMPOUNDED 36 Medical ) ointment Branch ARIPiprazol 3-0 Yes by [facility] (ABILIFY 2- Intramus[facility] of [place]) 08:59: lar route [place] 300 mg sers 36 once every Me dical month. Branch triamcinolo 2023-0 Yes Apply to [place] 0.1% in 2- affected ity o f aquaphor 08:59: area(s). [place] (COMPOUNDED 36 Medical ) ointment Branch ARIPiprazol 2023-0 Yes by [facility] (ABILIFY 2- Intr[facility] of [place]) 08:59: lar route [place] 300 mg sers 36 once every Me dical month. Branch triamcinolo 2023-0 Yes Apply to [place] 0.1% in 08-19 affected ity o f aquaphor 08:59: area(s). [place] (COMPOUNDED 36 Medical ) ointment Branch ARIPiprazol 2022-0 Yes by [facility] (ABILIFY 2-01 Intr[facility] of [place]) 08:59: lar route [place] 300 mg sers 36 once every Me dical month. Branch triamcinolo Yes Apply to [place] 0.1% in 08-19 affected ity o f aquaphor 08:59: area(s). [place] (COMPOUNDED 36 Medical ) ointment Branch ARIPiprazol [...] once every Me dical month. Branch SUMAtriptan 2022-0 Yes [id number] 20mg Use 1 [facility] 20 2-01 [place] in 1 ity of mg/actuatio 00:00: nostril as [place] n nasal 00 needed Medical spray (migraine) Branch . midazolam 2022-0 Yes [id number] 5mg Use 5 mg [facility] (NAYZILAM) 2-01 in each ity of 5 mg/spray 00:00: nostril as [place] (0.1 mL) 00 needed Medical [place] (seizure). Branch levETIRAcet 2022-0 Yes [id number] 1000mg Take 10 mL [facility] am (KEPPRA) 2-01 by mouth ity of 100 mg/mL 00:00: in the [place] oral 00 morning Medical solution and 10 mL Branch in the evening. SUMAtriptan 2022-0 Yes [id number] 20mg Use 1 [facility] 20 2-01 [place] in 1 ity of mg/actuatio 00:00: nostril as [place] n nasal 00 needed Medical spray (migraine) Branch . midazolam 2022-0 Yes [id number] 5mg Use 5 mg [facility] (NAYZILAM) 2-01 in each ity of 5 mg/spray 00:00: nostril as [place] (0.1 mL) 00 needed Medical [place] (seizure). Branch levETIRAcet 2022-0 Yes [id number] 1000mg Take 10 mL [facility] am (KEPPRA) 2-01 by mouth ity of 100 mg/mL 00:00: in the [place] oral 00 morning Medical solution and 10 mL Branch in the evening. SUMAtriptan 2022-0 Yes [id number] 20mg Use 1 [facility] 20 2-01 [place] in 1 ity of mg/actuatio 00:00: nostril as [place] n nasal 00 needed Medical spray (migraine) Branch . midazolam 2023-0 Yes [id number] 5mg Use 5 mg [facility] (NAYZILAM) 2-01 in each ity of 5 mg/spray 00:00: nostril as [place] (0.1 mL) 00 needed Medical [place] (seizure). Branch levETIRAcet 2022-0 Yes [id number] 1000mg Take 10 mL [facility] am (KEPPRA) 2-01 by mouth ity of 100 mg/mL 00:00: in the [place] oral 00 morning Medical solution and 10 mL Branch in the evening. SUMAtriptan 2022-0 Yes [id number] 20mg Use 1 [facility] 20 2-01 [place] in 1 ity of mg/actuatio 00:00: nostril as [place] n nasal 00 needed Medical spray (migraine) Branch . midazolam 2022-0 Yes [id number] 5mg Use 5 mg [facility] (NAYZILAM) 2-01 in each ity of 5 mg/spray 00:00: nostril as [place] (0.1 mL) 00 needed Medical [place] (seizure). Branch levETIRAcet 0 Yes [id number] 1000mg Take 10 mL [facility] am (KEPPRA) 2-01 by mouth ity of 100 mg/mL 00:00: in the [place] oral 00 morning Medical solution and 10 mL Branch in the evening. SUMAtriptan 2022-0 Yes [id number] 20mg Use 1 [facility] 20 2-01 [place] in 1 ity of mg/actuatio 00:00: nostril as [place] n nasal 00 needed Medical spray (migraine) Branch . midazolam 2022-0 Yes [id number] 5mg Use 5 mg [facility] (NAYZILAM) 2-01 in each ity of 5 mg/spray 00:00: nostril as [place] (0.1 mL) 00 needed Medical [place] (seizure). Branch levETIRAcet 2022-0 Yes [id number] 1000mg Take 10 mL [facility] am (KEPPRA) 2-01 by mouth ity of 100 mg/mL 00:00: in the [place] oral 00 morning Medical solution and 10 mL Branch in the evening. SUMAtriptan 2022-0 Yes [id number] 20mg Use 1 [facility] 20 2-01 [place] in 1 ity of mg/actuatio 00:00: nostril as [place] n nasal 00 needed Medical spray (migraine) Branch . midazolam 2022-0 Yes [id number] 5mg Use 5 mg [facility] (NAYZILAM) 2-01 in each ity of 5 mg/spray 00:00: nostril as [place] (0.1 mL) 00 needed Medical [place] (seizure). Branch levETIRAcet 2022-0 Yes [id number] 1000mg Take 10 mL [facility] am (KEPPRA) 2-01 by mouth ity of 100 mg/mL 00:00: in the [place] oral 00 morning Medical solution and 10 mL Branch in the evening. SUMAtriptan 2022-0 Yes [id number] 20mg Use 1 [facility] 20 2-01 [place] in 1 ity of mg/actuatio 00:00: nostril as [place] n nasal 00 needed Medical spray (migraine) Branch . midazolam 2022-0 Yes [id number] 5mg Use 5 mg [facility] (NAYZILAM) 2-01 in each ity of 5 mg/spray 00:00: nostril as [place] (0.1 mL) 00 needed Medical [place] (seizure). Branch levETIRAcet 2022-0 Yes [id number] 1000mg Take 10 mL [facility] am (KEPPRA) 2-01 by mouth ity of 100 mg/mL 00:00: in the [place] oral 00 morning Medical solution and 10 mL Branch in the evening. SUMAtriptan 2022-0 Yes [id number] 20mg Use 1 [facility] 20 2-01 [place] in 1 ity of mg/actuatio 00:00: nostril as [place] n nasal 00 needed Medical spray (migraine) Branch . midazolam 2022-0 Yes [id number] 5mg Use 5 mg [facility] (NAYZILAM) 2-01 in each ity of 5 mg/spray 00:00: nostril as [place] (0.1 mL) 00 needed Medical [place] (seizure). Branch levETIRAcet 2022-0 Yes [id number] 1000mg Take 10 mL [facility] am (KEPPRA) 2-01 by mouth ity of 100 mg/mL 00:00: in the [place] oral 00 morning Medical solution and 10 mL Branch in the evening. SUMAtriptan 2022-0 Yes [id number] 20mg Use 1 [facility] 20 2-01 [place] in 1 ity of mg/actuatio 00:00: nostril as [place] n nasal 00 needed Medical spray (migraine) Branch . midazolam 2022-0 Yes [id number] 5mg Use 5 mg [facility] (NAYZILAM) 2-01 in each ity of 5 mg/spray 00:00: nostril as [place] (0.1 mL) 00 needed Medical [place] (seizure). Branch levETIRAcet 2022-0 Yes [id number] 1000mg Take 10 mL [facility] am (KEPPRA) 2-01 by mouth ity of 100 mg/mL 00:00: in the [place] oral 00 morning Medical solution and 10 mL Branch in the evening. SUMAtriptan 2022-0 Yes [id number] 20mg Use 1 [facility] 20 2-01 [place] in 1 ity of mg/actuatio 00:00: nostril as [place] n nasal 00 needed Medical spray (migraine) Branch . midazolam 2022-0 Yes [id number] 5mg Use 5 mg [facility] (NAYZILAM) 2-01 in each ity of 5 mg/spray 00:00: nostril as [place] (0.1 mL) 00 needed Medical [place] (seizure). Branch levETIRAcet 2022-0 Yes [id number] 1000mg Take 10 mL [facility] am (KEPPRA) 2-01 by mouth ity of 100 mg/mL 00:00: in the [place] oral 00 morning Medical solution and 10 mL Branch in the evening. SUMAtriptan 2022-0 Yes [id number] 20mg Use 1 [facility] 20 2-01 [place] in 1 ity of mg/actuatio 00:00: nostril as [place] n nasal 00 needed Medical spray (migraine) Branch . midazolam 2022-0 Yes [id number] 5mg Use 5 mg [facility] (NAYZILAM) 2-01 in each ity of 5 mg/spray 00:00: nostril as [place] (0.1 mL) 00 needed Medical [place] (seizure). Branch levETIRAcet 2022-0 Yes [id number] 1000mg Take 10 mL [facility] am (KEPPRA) 2-01 by mouth ity of 100 mg/mL 00:00: in the [place] oral 00 morning Medical solution and 10 mL Branch in the evening. SUMAtriptan 2022-0 Yes [id number] 20mg Use 1 [facility] 20 2-01 [place] in 1 ity of mg/actuatio 00:00: nostril as [place] n nasal 00 needed Medical spray (migraine) Branch . midazolam 2022-0 Yes [id number] 5mg Use 5 mg [facility] (NAYZILAM) 2-01 in each ity of 5 mg/spray 00:00: nostril as [place] (0.1 mL) 00 needed Medical [place] (seizure). Branch levETIRAcet 0 Yes [id number] 1000mg Take 10 mL [facility] am (KEPPRA) 2-01 by mouth ity of 100 mg/mL 00:00: in the [place] oral 00 morning Medical solution and 10 mL Branch in the evening. SUMAtriptan 2022-0 Yes [id number] 20mg Use 1 [facility] 20 2-01 [place] in 1 ity of mg/actuatio 00:00: nostril as [place] n nasal 00 needed Medical spray (migraine) Branch . midazolam 2022-0 Yes [id number] 5mg Use 5 mg [facility] (NAYZILAM) 2-01 in each ity of 5 mg/spray 00:00: nostril as [place] (0.1 mL) 00 needed Medical [place] (seizure). Branch levETIRAcet 0 Yes [id number] 1000mg Take 10 mL [facility] am (KEPPRA) 2-01 by mouth ity of 100 mg/mL 00:00: in the [place] oral 00 morning Medical solution and 10 mL Branch in the evening. SUMAtriptan 2022-0 Yes [id number] 20mg Use 1 [facility] 20 2-01 [place] in 1 ity of mg/actuatio 00:00: nostril as [place] n nasal 00 needed Medical spray (migraine) Branch . midazolam 2022-0 Yes [id number] 5mg Use 5 mg [facility] (NAYZILAM) 2-01 in each ity of 5 mg/spray 00:00: nostril as [place] (0.1 mL) 00 needed Medical [place] (seizure). Branch levETIRAcet 0 Yes [id number] 1000mg Take 10 mL [facility] am (KEPPRA) 2-01 by mouth ity of 100 mg/mL 00:00: in the [place] oral 00 morning Medical solution and 10 mL Branch in the evening. SUMAtriptan 2022-0 Yes [id number] 20mg Use 1 [facility] 20 2-01 [place] in 1 ity of mg/actuatio 00:00: nostril as [place] n nasal 00 needed Medical spray (migraine) Branch . midazolam 2022-0 Yes [id number] 5mg Use 5 mg [facility] (NAYZILAM) 2-01 in each ity of 5 mg/spray 00:00: nostril as [place] (0.1 mL) 00 needed Medical [place] (seizure). Branch levETIRAcet 2022-0 Yes [id number] 1000mg Take 10 mL [facility] am (KEPPRA) 2-01 by mouth ity of 100 mg/mL 00:00: in the [place] oral 00 morning Medical solution and 10 mL Branch in the evening. SUMAtriptan 2022-0 Yes [id number] 20mg Use 1 [facility] 20 2-01 [place] in 1 ity of mg/actuatio 00:00: nostril as [place] n nasal 00 needed Medical spray (migraine) Branch . midazolam 2022-0 Yes [id number] 5mg Use 5 mg [facility] (NAYZILAM) 2-01 in each ity of 5 mg/spray 00:00: nostril as [place] (0.1 mL) 00 needed Medical [place] (seizure). Branch levETIRAcet 0 Yes [id number] 1000mg Take 10 mL [facility] am (KEPPRA) 2-01 by mouth ity of 100 mg/mL 00:00: in the [place] oral 00 morning Medical solution and 10 mL Branch in the evening. SUMAtriptan 2022-0 Yes [id number] 20mg Use 1 [facility] 20 2-01 [place] in 1 ity of mg/actuatio 00:00: nostril as [place] n nasal 00 needed Medical spray (migraine) Branch . midazolam 2022-0 Yes [id number] 5mg Use 5 mg [facility] (NAYZILAM) 2-01 in each ity of 5 mg/spray 00:00: nostril as [place] (0.1 mL) 00 needed Medical [place] (seizure). Branch levETIRAcet 2022-0 Yes [id number] 1000mg Take 10 mL [facility] am (KEPPRA) 2-01 by mouth ity of 100 mg/mL 00:00: in the [place] oral 00 morning Medical solution and 10 mL Branch in the evening. SUMAtriptan 2022-0 Yes [id number] 20mg Use 1 [facility] 20 2-01 [place] in 1 ity of mg/actuatio 00:00: nostril as [place] n nasal 00 needed Medical spray (migraine) Branch . midazolam 2022-0 Yes [id number] 5mg Use 5 mg [facility] (NAYZILAM) 2-01 in each ity of 5 mg/spray 00:00: nostril as [place] (0.1 mL) 00 needed Medical [place] (seizure). Branch levETIRAcet 0 Yes [id number] 1000mg Take 10 mL [facility] am (KEPPRA) 2-01 by mouth ity of 100 mg/mL 00:00: in the [place] oral 00 morning Medical solution and 10 mL Branch in the evening. SUMAtriptan 2022-0 Yes [id number] 20mg Use 1 [facility] 20 2-01 [place] in 1 ity of mg/actuatio 00:00: nostril as [place] n nasal 00 needed Medical spray (migraine) Branch . midazolam 2022-0 Yes [id number] 5mg Use 5 mg [facility] (NAYZILAM) 2-01 in each ity of 5 mg/spray 00:00: nostril as [place] (0.1 mL) 00 needed Medical [place] (seizure). Branch levETIRAcet 0 Yes [id number] 1000mg Take 10 mL [facility] am (KEPPRA) 2-01 by mouth ity of 100 mg/mL 00:00: in the [place] oral 00 morning Medical solution and 10 mL Branch in the evening. SUMAtriptan 2022-0 Yes [id number] 20mg Use 1 [facility] 20 2-01 [place] in 1 ity of mg/actuatio 00:00: nostril as [place] n nasal 00 needed Medical spray (migraine) Branch . midazolam 2022-0 Yes [id number] 5mg Use 5 mg [facility] (NAYZILAM) 2-01 in each ity of 5 mg/spray 00:00: nostril as [place] (0.1 mL) 00 needed Medical [place] (seizure). Branch levETIRAcet 2022-0 Yes [id number] 1000mg Take 10 mL [facility] am (KEPPRA) 2-01 by mouth ity of 100 mg/mL 00:00: in the [place] oral 00 morning Medical solution and 10 mL Branch in the evening. SUMAtriptan 2022-0 Yes [id number] 20mg Use 1 [facility] 20 2-01 [place] in 1 ity of mg/actuatio 00:00: nostril as [place] n nasal 00 needed Medical spray (migraine) Branch . midazolam 2022-0 Yes [id number] 5mg Use 5 mg [facility] (NAYZILAM) 2-01 in each ity of 5 mg/spray 00:00: nostril as [place] (0.1 mL) 00 needed Medical [place] (seizure). Branch levETIRAcet 0 Yes [id number] 1000mg Take 10 mL [facility] am (KEPPRA) 2-01 by mouth ity of 100 mg/mL 00:00: in the [place] oral 00 morning Medical solution and 10 mL Branch in the evening. SUMAtriptan 2022-0 Yes [id number] 20mg Use 1 [facility] 20 2-01 [place] in 1 ity of mg/actuatio 00:00: nostril as [place] n nasal 00 needed Medical spray (migraine) Branch . midazolam 2022-0 Yes [id number] 5mg Use 5 mg [facility] (NAYZILAM) 2-01 in each ity of 5 mg/spray 00:00: nostril as [place] (0.1 mL) 00 needed Medical [place] (seizure). Branch levETIRAcet 2022-0 Yes [id number] 1000mg Take 10 mL [facility] am (KEPPRA) 2-01 by mouth ity of 100 mg/mL 00:00: in the [place] oral 00 morning Medical solution and 10 mL Branch in the evening. SUMAtriptan 2022-0 Yes [id number] 20mg Use 1 [facility] 20 2-01 [place] in 1 ity of mg/actuatio 00:00: nostril as [place] n nasal 00 needed Medical spray (migraine) Branch . midazolam 2022-0 Yes [id number] 5mg Use 5 mg [facility] (NAYZILAM) 2-01 in each ity of 5 mg/spray 00:00: nostril as [place] (0.1 mL) 00 needed Medical [place] (seizure). Branch levETIRAcet 2022-0 Yes [id number] 1000mg Take 10 mL [facility] am (KEPPRA) 2-01 by mouth ity of 100 mg/mL 00:00: in the [place] oral 00 morning Medical solution and 10 mL Branch in the evening. SUMAtriptan 2022-0 Yes [id number] 20mg Use 1 [facility] 20 2-01 [place] in 1 ity of mg/actuatio 00:00: nostril as [place] n nasal 00 needed Medical spray (migraine) Branch . midazolam 2022-0 Yes [id number] 5mg Use 5 mg [facility] (NAYZILAM) 2-01 in each ity of 5 mg/spray 00:00: nostril as [place] (0.1 mL) 00 needed Medical [place] (seizure). Branch levETIRAcet 2022-0 Yes [id number] 1000mg Take 10 mL [facility] am (KEPPRA) 2-01 by mouth ity of 100 mg/mL 00:00: in the [place] oral 00 morning Medical solution and 10 mL Branch in the evening. SUMAtriptan 2022-0 Yes [id number] 20mg Use 1 [facility] 20 2-01 [place] in 1 ity of mg/actuatio 00:00: nostril as [place] n nasal 00 needed Medical spray (migraine) Branch . midazolam 2022-0 Yes [id number] 5mg Use 5 mg [facility] (NAYZILAM) 2-01 in each ity of 5 mg/spray 00:00: nostril as [place] (0.1 mL) 00 needed Medical [place] (seizure). Branch levETIRAcet 2022-0 Yes [id number] 1000mg Take 10 mL [facility] am (KEPPRA) 2-01 by mouth ity of 100 mg/mL 00:00: in the [place] oral 00 morning Medical solution and 10 mL Branch in the evening. SUMAtriptan 2022-0 Yes [id number] 20mg Use 1 [facility] 20 2-01 [place] in 1 ity of mg/actuatio 00:00: nostril as [place] n nasal 00 needed Medical spray (migraine) Branch . midazolam 2022-0 Yes [id number] 5mg Use 5 mg [facility] (NAYZILAM) 2-01 in each ity of 5 mg/spray 00:00: nostril as [place] (0.1 mL) 00 needed Medical [place] (seizure). Branch levETIRAcet 2023-0 Yes [id number] 1000mg Take 10 mL [facility] am (KEPPRA) 2-01 by mouth ity of 100 mg/mL 00:00: in the [place] oral 00 morning Medical solution and 10 mL Branch in the evening. SUMAtriptan 2022-0 Yes [id number] 20mg Use 1 [facility] 20 2-01 [place] in 1 ity of mg/actuatio 00:00: nostril as [place] n nasal 00 needed Medical spray (migraine) Branch . midazolam 2022-0 Yes [id number] 5mg Use 5 mg [facility] (NAYZILAM) 2-01 in each ity of 5 mg/spray 00:00: nostril as [place] (0.1 mL) 00 needed Medical [place] (seizure). Branch levETIRAcet 0 Yes [id number] 1000mg Take 10 mL [facility] am (KEPPRA) 2-01 by mouth ity of 100 mg/mL 00:00: in the [place] oral 00 morning Medical solution and 10 mL Branch in the evening. SUMAtriptan 2022-0 Yes [id number] 20mg Use 1 [facility] 20 2-01 [place] in 1 ity of mg/actuatio 00:00: nostril as [place] n nasal 00 needed Medical spray (migraine) Branch . midazolam 2022-0 Yes [id number] 5mg Use 5 mg [facility] (NAYZILAM) 2-01 in each ity of 5 mg/spray 00:00: nostril as [place] (0.1 mL) 00 needed Medical [place] (seizure). Branch levETIRAcet 2022-0 Yes [id number] 1000mg Take 10 mL [facility] am (KEPPRA) 2-01 by mouth ity of 100 mg/mL 00:00: in the [place] oral 00 morning Medical solution and 10 mL Branch in the evening. SUMAtriptan 2022-0 Yes [id number] 20mg Use 1 [facility] 20 2-01 [place] in 1 ity of mg/actuatio 00:00: nostril as [place] n nasal 00 needed Medical spray (migraine) Branch . midazolam 2022-0 Yes [id number] 5mg Use 5 mg [facility] (NAYZILAM) 2-01 in each ity of 5 mg/spray 00:00: nostril as [place] (0.1 mL) 00 needed Medical [place] (seizure). Branch levETIRAcet 2022-0 Yes [id number] 1000mg Take 10 mL [facility] am (KEPPRA) 2-01 by mouth ity of 100 mg/mL 00:00: in the [place] oral 00 morning Medical solution and 10 mL Branch in the evening. SUMAtriptan 2022-0 Yes [id number] 20mg Use 1 [facility] 20 2-01 [place] in 1 ity of mg/actuatio 00:00: nostril as [place] n nasal 00 needed Medical spray (migraine) Branch . midazolam 2022-0 Yes [id number] 5mg Use 5 mg [facility] (NAYZILAM) 2-01 in each ity of 5 mg/spray 00:00: nostril as [place] (0.1 mL) 00 needed Medical [place] (seizure). Branch levETIRAcet 0 Yes [id number] 1000mg Take 10 mL [facility] am (KEPPRA) 2-01 by mouth ity of 100 mg/mL 00:00: in the [place] oral 00 morning Medical solution and 10 mL Branch in the evening. SUMAtriptan 2022-0 Yes [id number] 20mg Use 1 [facility] 20 2-01 [place] in 1 ity of mg/actuatio 00:00: nostril as [place] n nasal 00 needed Medical spray (migraine) Branch . midazolam 2022-0 Yes [id number] 5mg Use 5 mg [facility] (NAYZILAM) 2-01 in each ity of 5 mg/spray 00:00: nostril as [place] (0.1 mL) 00 needed Medical [place] (seizure). Branch levETIRAcet 2022-0 Yes [id number] 1000mg Take 10 mL [facility] am (KEPPRA) 2-01 by mouth ity of 100 mg/mL 00:00: in the [place] oral 00 morning Medical solution and 10 mL Branch in the evening. SUMAtriptan 2022-0 Yes [id number] 20mg Use 1 [facility] 20 2-01 [place] in 1 ity of mg/actuatio 00:00: nostril as [place] n nasal 00 needed Medical spray (migraine) Branch . midazolam 2022-0 Yes [id number] 5mg Use 5 mg [facility] (NAYZILAM) 2-01 in each ity of 5 mg/spray 00:00: nostril as [place] (0.1 mL) 00 needed Medical [place] (seizure). Branch levETIRAcet 2022-0 Yes [id number] 1000mg Take 10 mL [facility] am (KEPPRA) 2-01 by mouth ity of 100 mg/mL 00:00: in the [place] oral 00 morning Medical solution and 10 mL Branch in the evening. SUMAtriptan 2022-0 Yes [id number] 20mg Use 1 [facility] 20 2-01 [place] in 1 ity of mg/actuatio 00:00: nostril as [place] n nasal 00 needed Medical spray (migraine) Branch . midazolam 2022-0 Yes [id number] 5mg Use 5 mg [facility] (NAYZILAM) 2-01 in each ity of 5 mg/spray 00:00: nostril as [place] (0.1 mL) 00 needed Medical [place] (seizure). Branch levETIRAcet 2022-0 Yes [id number] 1000mg Take 10 mL [facility] am (KEPPRA) 2-01 by mouth ity of 100 mg/mL 00:00: in the [place] oral 00 morning Medical solution and 10 mL Branch in the evening. SUMAtriptan 2022-0 Yes [id number] 20mg Use 1 [facility] 20 2-01 [place] in 1 ity of mg/actuatio 00:00: nostril as [place] n nasal 00 needed Medical spray (migraine) Branch . midazolam 2022-0 Yes [id number] 5mg Use 5 mg [facility] (NAYZILAM) 2-01 in each ity of 5 mg/spray 00:00: nostril as [place] (0.1 mL) 00 needed Medical [place] (seizure). Branch levETIRAcet 2022-0 Yes [id number] 1000mg Take 10 mL [facility] am (KEPPRA) 2-01 by mouth ity of 100 mg/mL 00:00: in the [place] oral 00 morning Medical solution and 10 mL Branch in the evening. SUMAtriptan 2022-0 Yes [id number] 20mg Use 1 [facility] 20 2-01 [place] in 1 ity of mg/actuatio 00:00: nostril as [place] n nasal 00 needed Medical spray (migraine) Branch . midazolam 2022-0 Yes [id number] 5mg Use 5 mg [facility] (NAYZILAM) 2-01 in each ity of 5 mg/spray 00:00: nostril as [place] (0.1 mL) 00 needed Medical [place] (seizure). Branch levETIRAcet 2022-0 Yes [id number] 1000mg Take 10 mL [facility] am (KEPPRA) 2-01 by mouth ity of 100 mg/mL 00:00: in the [place] oral 00 morning Medical solution and 10 mL Branch in the evening. SUMAtriptan 2022-0 Yes [id number] 20mg Use 1 [facility] 20 2-01 [place] in 1 ity of mg/actuatio 00:00: nostril as [place] n nasal 00 needed Medical spray (migraine) Branch . midazolam 2022-0 Yes [id number] 5mg Use 5 mg [facility] (NAYZILAM) 2-01 in each ity of 5 mg/spray 00:00: nostril as [place] (0.1 mL) 00 needed Medical [place] (seizure). Branch levETIRAcet 2022-0 Yes [id number] 1000mg Take 10 mL [facility] am (KEPPRA) 2-01 by mouth ity of 100 mg/mL 00:00: in the [place] oral 00 morning Medical solution and 10 mL Branch in the evening. SUMAtriptan 2022-0 Yes [id number] 20mg Use 1 [facility] 20 2-01 [place] in 1 ity of mg/actuatio 00:00: nostril as [place] n nasal 00 needed Medical spray (migraine) Branch . midazolam 2022-0 Yes [id number] 5mg Use 5 mg [facility] (NAYZILAM) 2-01 in each ity of 5 mg/spray 00:00: nostril as [place] (0.1 mL) 00 needed Medical [place] (seizure). Branch levETIRAcet 2022-0 Yes [id number] 1000mg Take 10 mL [facility] am (KEPPRA) 2-01 by mouth ity of 100 mg/mL 00:00: in the [place] oral 00 morning Medical solution and 10 mL Branch in the evening. SUMAtriptan 2022-0 Yes [id number] 20mg Use 1 [facility] 20 2-01 [place] in 1 ity of mg/actuatio 00:00: nostril as [place] n nasal 00 needed Medical spray (migraine) Branch . midazolam 2022-0 Yes [id number] 5mg Use 5 mg [facility] ([facility]ZILAM) 2-01 in each ity of 5 mg/spray 00:00: nostril as [place] (0.1 mL) 00 needed Medical [place] (seizure). Branch levETIRAcet 2022-0 Yes [id number] 1000mg Take 10 mL [facility] (KEPPRA) 2-01 by mouth ity of 100 mg/mL 00:00: in the [place] oral 00 morning Medical solution and 10 mL Branch in the evening. SUMAtriptan 2022-0 Yes [id number] 20mg Use 1 [facility] 20 2-01 [place] in 1 ity of mg/actuatio 00:00: nostril as [place] n nasal 00 needed Medical spray (migraine) Branch . midazolam 2022-0 Yes [id number] 5mg Use 5 mg [facility] ([facility]ZILAM) 2-01 in each ity of 5 mg/spray 00:00: nostril as [place] (0.1 mL) 00 needed Medical [place] (seizure). Branch levETIRAcet 2022-0 Yes [id number] 1000mg Take 10 mL [facility] (KEPPRA) 2-01 by mouth ity of 100 mg/mL 00:00: in the [place] oral 00 morning Medical solution and 10 mL Branch in the evening. SUMAtriptan 2022-0 Yes [id number] 20mg Use 1 [facility] 20 2-01 [place] in 1 ity of mg/actuatio 00:00: nostril as [place] n nasal 00 needed Medical spray (migraine) Branch . midazolam 2022-0 Yes [id number] 5mg Use 5 mg [facility] ([facility]ZILAM) 2-01 in each ity of 5 mg/spray 00:00: nostril as [place] (0.1 mL) 00 needed Medical [place] (seizure). Branch levETIRAcet 2022-0 Yes [id number] 1000mg Take 10 mL [facility] (KEPPRA) 2-01 by mouth ity of 100 mg/mL 00:00: in the [place] oral 00 morning Medical solution and 10 mL Branch in the evening. SUMAtriptan 2022-0 Yes [id number] 20mg Use 1 [facility] 20 2-01 [place] in 1 ity of mg/actuatio 00:00: nostril as [place] n nasal 00 needed Medical spray (migraine) Branch . midazolam 2022-0 Yes [id number] 5mg Use 5 mg [facility] ([facility]ZILAM) 2-01 in each ity of 5 mg/spray 00:00: nostril as [place] (0.1 mL) 00 needed Medical [place] (seizure). Branch levETIRAcet 2022-0 Yes [id number] 1000mg Take 10 mL [facility] (KEPPRA) 2-01 by mouth ity of 100 mg/mL 00:00: in the [place] oral 00 morning Medical solution and 10 mL Branch in the evening. SUMAtriptan 2022-0 Yes [id number] 20mg Use 1 [facility] 20 2-01 [place] in 1 ity of mg/actuatio 00:00: nostril as [place] n nasal 00 needed Medical spray (migraine) Branch . midazolam 2022-0 Yes [id number] 5mg Use 5 mg [facility] ([facility]ZIL[facility]) 2-01 in each ity of 5 mg/spray 00:00: nostril as [place] (0.1 mL) 00 needed Medical [place] (seizure). Branch levETIRAcet 2022-0 Yes [id number] 1000mg Take 10 mL [facility] (KEPPRA) 2-01 by mouth ity of 100 mg/mL 00:00: in the [place] oral 00 morning Medical solution and 10 mL Branch in the evening. SUMAtriptan 2022-0 Yes [id number] 20mg Use 1 [facility] 20 2-01 [place] in 1 ity of mg/actuatio 00:00: nostril as [place] n nasal 00 needed Medical spray (migraine) Branch . midazolam 2022-0 Yes [id number] 5mg Use 5 mg [facility] ([facility]ZILAM) 2-01 in each ity of 5 mg/spray 00:00: nostril as [place] (0.1 mL) 00 needed Medical [place] (seizure). Branch levETIRAcet 2022-0 Yes [id number] 1000mg Take 10 mL [facility] (KEPPRA) 2-01 by mouth ity of 100 mg/mL 00:00: in the [place] oral 00 morning Medical solution and 10 mL Branch in the evening. SUMAtriptan 2022-0 Yes [id number] 20mg Use 1 [facility] 20 2-01 [place] in 1 ity of mg/actuatio 00:00: nostril as [place] n nasal 00 needed Medical spray (migraine) Branch . midazolam 2022-0 Yes [id number] 5mg Use 5 mg [facility] ([facility]ZILAM) 2-01 in each ity of 5 mg/spray 00:00: nostril as [place] (0.1 mL) 00 needed Medical [place] (seizure). Branch levETIRAcet 2022-0 Yes [id number] 1000mg Take 10 mL [facility] (KEPPRA) 2-01 by mouth ity of 100 mg/mL 00:00: in the [place] oral 00 morning Medical solution and 10 mL Branch in the evening. SUMAtriptan 2022-0 Yes [id number] 20mg Use 1 [facility] 20 2-01 [place] in 1 ity of mg/actuatio 00:00: nostril as [place] n nasal 00 needed Medical spray (migraine) Branch . midazolam 2022-0 Yes [id number] 5mg Use 5 mg [facility] (NAYZILAM) 2-01 in each ity of 5 mg/spray 00:00: nostril as [place] (0.1 mL) 00 needed Medical [place] (seizure). Branch levETIRAcet 2022-0 Yes [id number] 1000mg Take 10 mL [facility] (KEPPRA) 2-01 by mouth ity of 100 mg/mL 00:00: in the [place] oral 00 morning Medical solution and 10 mL Branch in the evening. SUMAtriptan 2022-0 Yes [id number] 20mg Use 1 [facility] 20 2-01 [place] in 1 ity of mg/actuatio 00:00: nostril as [place] n nasal 00 needed Medical spray (migraine) Branch . midazolam 2022-0 Yes [id number] 5mg Use 5 mg [facility] (NAYZILAM) 2-01 in each ity of 5 mg/spray 00:00: nostril as [place] (0.1 mL) 00 needed Medical [place] (seizure). Branch levETIRAcet 2022-0 Yes [id number] 1000mg Take 10 mL [facility] (KEPPRA) 2-01 by mouth ity of 100 mg/mL 00:00: in the [place] oral 00 morning Medical solution and 10 mL Branch in the evening. SUMAtriptan 2022-0 Yes [id number] 20mg Use 1 [facility] 20 2-01 [place] in 1 ity of mg/actuatio 00:00: nostril as [place] n nasal 00 needed Medical spray (migraine) Branch . midazolam 2022-0 Yes [id number] 5mg Use 5 mg [facility] (NAYZILAM) 2-01 in each ity of 5 mg/spray 00:00: nostril as [place] (0.1 mL) 00 needed Medical [place] (seizure). Branch levETIRAcet 2022-0 Yes [id number] 1000mg Take 10 mL [facility] (KEPPRA) 2-01 by mouth ity of 100 mg/mL 00:00: in the [place] oral 00 morning Medical solution and 10 mL Branch in the evening. SUMAtriptan 2022-0 Yes [id number] 20mg Use 1 [facility] 20 2-01 [place] in 1 ity of mg/actuatio 00:00: nostril as [place] n nasal 00 needed Medical spray (migraine) Branch . midazolam 2022-0 Yes [id number] 5mg Use 5 mg [facility] (NAYZILAM) 2-01 in each ity of 5 mg/spray 00:00: nostril as [place] (0.1 mL) 00 needed Medical [place] (seizure). Branch levETIRAcet 2022-0 Yes [id number] 1000mg Take 10 mL [facility] (KEPPRA) 2-01 by mouth ity of 100 mg/mL 00:00: in the [place] oral 00 morning Medical solution and 10 mL Branch in the evening. SUMAtriptan 2022-0 Yes [id number] 20mg Use 1 [facility] 20 2-01 [place] in 1 ity of mg/actuatio 00:00: nostril as [place] n nasal 00 needed Medical spray (migraine) Branch . midazolam 2022-0 Yes [id number] 5mg Use 5 mg [facility] (NAYZILAM) 2-01 in each ity of 5 mg/spray 00:00: nostril as [place] (0.1 mL) 00 needed Medical [place] (seizure). Branch levETIRAcet 2022-0 Yes [id number] 1000mg Take 10 mL [facility] (KEPPRA) 2-01 by mouth ity of 100 mg/mL 00:00: in the [place] oral 00 morning Medical solution and 10 mL Branch in the evening. SUMAtriptan 2022-0 Yes [id number] 20mg Use 1 [facility] 20 2-01 [place] in 1 ity of mg/actuatio 00:00: nostril as [place] n nasal 00 needed Medical spray (migraine) Branch . midazolam 2022-0 Yes [id number] 5mg Use 5 mg [facility] (NAYZILAM) 2-01 in each ity of 5 mg/spray 00:00: nostril as [place] (0.1 mL) 00 needed Medical [place] (seizure). Branch levETIRAcet 2022-0 Yes [id number] 1000mg Take 10 mL [facility] (KEPPRA) 2-01 by mouth ity of 100 mg/mL 00:00: in the [place] oral 00 morning Medical solution and 10 mL Branch in the evening. SUMAtriptan 2022-0 Yes [id number] 20mg Use 1 [facility] 20 2-01 [place] in 1 ity of mg/actuatio 00:00: nostril as [place] n nasal 00 needed Medical spray (migraine) Branch . midazolam 2022-0 Yes [id number] 5mg Use 5 mg [facility] (NAYZILAM) 2-01 in each ity of 5 mg/spray 00:00: nostril as [place] (0.1 mL) 00 needed Medical [place] (seizure). Branch levETIRAcet 2022-0 Yes [id number] 1000mg Take 10 mL [facility] (KEPPRA) 2-01 by mouth ity of 100 mg/mL 00:00: in the [place] oral 00 morning Medical solution and 10 mL Branch in the evening. SUMAtriptan 2022-0 Yes [id number] 20mg Use 1 [facility] 20 2-01 [place] in 1 ity of mg/actuatio 00:00: nostril as [place] n nasal 00 needed Medical spray (migraine) Branch . midazolam 2022-0 Yes [id number] 5mg Use 5 mg [facility] (NAYZILAM) 2-01 in each ity of 5 mg/spray 00:00: nostril as [place] (0.1 mL) 00 needed Medical [place] (seizure). Branch levETIRAcet 2022-0 Yes [id number] 1000mg Take 10 mL [facility] (KEPPRA) 2-01 by mouth ity of 100 mg/mL 00:00: in the [place] oral 00 morning Medical solution and 10 mL Branch in the evening. SUMAtriptan 2022-0 Yes [id number] 20mg Use 1 [facility] 20 2-01 [place] in 1 ity of mg/actuatio 00:00: nostril as [place] n nasal 00 needed Medical spray (migraine) Branch . midazolam 2022-0 Yes [id number] 5mg Use 5 mg [facility] (NAYZILAM) 2-01 in each ity of 5 mg/spray 00:00: nostril as [place] (0.1 mL) 00 needed Medical [place] (seizure). Branch levETIRAcet 0 Yes [id number] 1000mg Take 10 mL [facility] (KEPPRA) 2-01 by mouth ity of 100 mg/mL 00:00: in the [place] oral 00 morning Medical solution and 10 mL Branch in the evening. SUMAtriptan 2022-0 Yes [id number] 20mg Use 1 [facility] 20 2-01 [place] in 1 ity of mg/actuatio 00:00: nostril as [place] n nasal 00 needed Medical spray (migraine) Branch . midazolam 2022-0 Yes [id number] 5mg Use 5 mg [facility] (NAYZILAM) 2-01 in each ity of 5 mg/spray 00:00: nostril as [place] (0.1 mL) 00 needed Medical [place] (seizure). Branch levETIRAcet 0 Yes [id number] 1000mg Take 10 mL [facility] (KEPPRA) 2-01 by mouth ity of 100 mg/mL 00:00: in the [place] oral 00 morning Medical solution and 10 mL Branch in the evening. SUMAtriptan 2022-0 Yes [id number] 20mg Use 1 [facility] 20 2-01 [place] in 1 ity of mg/actuatio 00:00: nostril as [place] n nasal 00 needed Medical spray (migraine) Branch . midazolam 2022-0 Yes [id number] 5mg Use 5 mg [facility] (NAYZILAM) 2-01 in each ity of 5 mg/spray 00:00: nostril as [place] (0.1 mL) 00 needed Medical [place] (seizure). Branch levETIRAcet 0 Yes [id number] 1000mg Take 10 mL [facility] (KEPPRA) 2-01 by mouth ity of 100 mg/mL 00:00: in the [place] oral 00 morning Medical solution and 10 mL Branch in the evening. SUMAtriptan 2022-0 Yes [id number] 20mg Use 1 [facility] 20 2-01 [place] in 1 ity of mg/actuatio 00:00: nostril as [place] n nasal 00 needed Medical spray (migraine) Branch . midazolam 2022-0 Yes [id number] 5mg Use 5 mg [facility] (NAYZILAM) 2-01 in each ity of 5 mg/spray 00:00: nostril as [place] (0.1 mL) 00 needed Medical [place] (seizure). Branch levETIRAcet 0 Yes [id number] 1000mg Take 10 mL [facility] (KEPPRA) 2-01 by mouth ity of 100 mg/mL 00:00: in the [place] oral 00 morning Medical solution and 10 mL Branch in the evening. SUMAtriptan 2022-0 Yes [id number] 20mg Use 1 [facility] 20 2-01 [place] in 1 ity of mg/actuatio 00:00: nostril as [place] n nasal 00 needed Medical spray (migraine) Branch . midazolam 2022-0 Yes [id number] 5mg Use 5 mg [facility] (NAYZILAM) 2-01 in each ity of 5 mg/spray 00:00: nostril as [place] (0.1 mL) 00 needed Medical [place] (seizure). Branch levETIRAcet 0 Yes [id number] 1000mg Take 10 mL [facility] (KEPPRA) 2-01 by mouth ity of 100 mg/mL 00:00: in the [place] oral 00 morning Medical solution and 10 mL Branch in the evening. SUMAtriptan 2022-0 Yes [id number] 20mg Use 1 [facility] 20 2-01 [place] in 1 ity of mg/actuatio 00:00: nostril as [place] n nasal 00 needed Medical spray (migraine) Branch . midazolam 2022-0 Yes [id number] 5mg Use 5 mg [facility] (NAYZILAM) 2-01 in each ity of 5 mg/spray 00:00: nostril as [place] (0.1 mL) 00 needed Medical [place] (seizure). Branch levETIRAcet 2022-0 Yes [id number] 1000mg Take 10 mL [facility] (KEPPRA) 2-01 by mouth ity of 100 mg/mL 00:00: in the [place] oral 00 morning Medical solution and 10 mL Branch in the evening. SUMAtriptan 2022-0 Yes [id number] 20mg Use 1 [facility] 20 2-01 [place] in 1 ity of mg/actuatio 00:00: nostril as [place] n nasal 00 needed Medical spray (migraine) Branch . midazolam 2022-0 Yes [id number] 5mg Use 5 mg [facility] (NAYZILAM) 2-01 in each ity of 5 mg/spray 00:00: nostril as [place] (0.1 mL) 00 needed Medical [place] (seizure). Branch levETIRAcet 2022-0 Yes [id number] 1000mg Take 10 mL [facility] (KEPPRA) 2-01 by mouth ity of 100 mg/mL 00:00: in the [place] oral 00 morning Medical solution and 10 mL Branch in the evening. SUMAtriptan 2022-0 Yes [id number] 20mg Use 1 [facility] 20 2-01 [place] in 1 ity of mg/actuatio 00:00: nostril as [place] n nasal 00 needed Medical spray (migraine) Branch . midazolam 2022-0 Yes [id number] 5mg Use 5 mg [facility] (NAYZILAM) 2-01 in each ity of 5 mg/spray 00:00: nostril as [place] (0.1 mL) 00 needed Medical [place] (seizure). Branch levETIRAcet 2022-0 Yes [id number] 1000mg Take 10 mL [facility] (KEPPRA) 2-01 by mouth ity of 100 mg/mL 00:00: in the [place] oral 00 morning Medical solution and 10 mL Branch in the evening. SUMAtriptan 2022-0 Yes [id number] 20mg Use 1 [facility] 20 2-01 [place] in 1 ity of mg/actuatio 00:00: nostril as [place] n nasal 00 needed Medical spray (migraine) Branch . midazolam 2022-0 Yes [id number] 5mg Use 5 mg [facility] (NAYZILAM) 2-01 in each ity of 5 mg/spray 00:00: nostril as [place] (0.1 mL) 00 needed Medical [place] (seizure). Branch levETIRAcet 2022-0 Yes [id number] 1000mg Take 10 mL [facility] (KEPPRA) 2-01 by mouth ity of 100 mg/mL 00:00: in the [place] oral 00 morning Medical solution and 10 mL Branch in the evening. SUMAtriptan 2022-0 Yes [id number] 20mg Use 1 [facility] 20 2-01 [place] in 1 ity of mg/actuatio 00:00: nostril as [place] n nasal 00 needed Medical spray (migraine) Branch . midazolam 2022-0 Yes [id number] 5mg Use 5 mg [facility] (NAYZILAM) 2-01 in each ity of 5 mg/spray 00:00: nostril as [place] (0.1 mL) 00 needed Medical [place] (seizure). Branch levETIRAcet 0 Yes [id number] 1000mg Take 10 mL [facility] (KEPPRA) 2-01 by mouth ity of 100 mg/mL 00:00: in the [place] oral 00 morning Medical solution and 10 mL Branch in the evening. SUMAtriptan 2022-0 Yes [id number] 20mg Use 1 [facility] 20 2-01 [place] in 1 ity of mg/actuatio 00:00: nostril as [place] n nasal 00 needed Medical spray (migraine) Branch . midazolam 2022-0 Yes [id number] 5mg Use 5 mg [facility] (NAYZILAM) 2-01 in each ity of 5 mg/spray 00:00: nostril as [place] (0.1 mL) 00 needed Medical [place] (seizure). Branch levETIRAcet 2022-0 Yes [id number] 1000mg Take 10 mL [facility] (KEPPRA) 2-01 by mouth ity of 100 mg/mL 00:00: in the [place] oral 00 morning Medical solution and 10 mL Branch in the evening. SUMAtriptan 2022-0 Yes [id number] 20mg Use 1 [facility] 20 2-01 [place] in 1 ity of mg/actuatio 00:00: nostril as [place] n nasal 00 needed Medical spray (migraine) Branch . midazolam 2022-0 Yes [id number] 5mg Use 5 mg [facility] (NAYZILAM) 2-01 in each ity of 5 mg/spray 00:00: nostril as [place] (0.1 mL) 00 needed Medical [place] (seizure). Branch levETIRAcet 2022-0 Yes [id number] 1000mg Take 10 mL [facility] (KEPPRA) 2-01 by mouth ity of 100 mg/mL 00:00: in the [place] oral 00 morning Medical solution and 10 mL Branch in the evening. SUMAtriptan 2022-0 Yes [id number] 20mg Use 1 [facility] 20 2-01 [place] in 1 ity of mg/actuatio 00:00: nostril as [place] n nasal 00 needed Medical spray (migraine) Branch . midazolam 2022-0 Yes [id number] 5mg Use 5 mg [facility] (NAYZILAM) 2-01 in each ity of 5 mg/spray 00:00: nostril as [place] (0.1 mL) 00 needed Medical [place] (seizure). Branch levETIRAcet 0 Yes [id number] 1000mg Take 10 mL [facility] am (KEPPRA) 2-01 by mouth ity of 100 mg/mL 00:00: in the [place] oral 00 morning Medical solution and 10 mL Branch in the evening. SUMAtriptan 2022-0 Yes [id number] 20mg Use 1 [facility] 20 2-01 [place] in 1 ity of mg/actuatio 00:00: nostril as [place] n nasal 00 needed Medical spray (migraine) Branch . midazolam 2022-0 Yes [id number] 5mg Use 5 mg [facility] (NAYZILAM) 2-01 in each ity of 5 mg/spray 00:00: nostril as [place] (0.1 mL) 00 needed Medical [place] (seizure). Branch levETIRAcet 2022-0 Yes [id number] 1000mg Take 10 mL [facility] (KEPPRA) 2-01 by mouth ity of 100 mg/mL 00:00: in the [place] oral 00 morning Medical solution and 10 mL Branch in the evening. SUMAtriptan 2022-0 Yes [id number] 20mg Use 1 [facility] 20 2-01 [place] in 1 ity of mg/actuatio 00:00: nostril as [place] n nasal 00 needed Medical spray (migraine) Branch . midazolam 2022-0 Yes [id number] 5mg Use 5 mg [facility] (NAYZILAM) 2-01 in each ity of 5 mg/spray 00:00: nostril as [place] (0.1 mL) 00 needed Medical [place] (seizure). Branch levETIRAcet 2022-0 Yes [id number] 1000mg Take 10 mL [facility] (KEPPRA) 2-01 by mouth ity of 100 mg/mL 00:00: in the [place] oral 00 morning Medical solution and 10 mL Branch in the evening. SUMAtriptan 2022-0 Yes [id number] 20mg Use 1 [facility] 20 2-01 [place] in 1 ity of mg/actuatio 00:00: nostril as [place] n nasal 00 needed Medical spray (migraine) Branch . midazolam 2022-0 Yes [id number] 5mg Use 5 mg [facility] (NAYZILAM) 2-01 in each ity of 5 mg/spray 00:00: nostril as [place] (0.1 mL) 00 needed Medical [place] (seizure). Branch levETIRAcet 0 Yes [id number] 1000mg Take 10 mL [facility] (KEPPRA) 2-01 by mouth ity of 100 mg/mL 00:00: in the [place] oral 00 morning Medical solution and 10 mL Branch in the evening. SUMAtriptan 2022-0 Yes [id number] 20mg Use 1 [facility] 20 2-01 [place] in 1 ity of mg/actuatio 00:00: nostril as [place] n nasal 00 needed Medical spray (migraine) Branch . midazolam 2022-0 Yes [id number] 5mg Use 5 mg [facility] (NAYZILAM) 2-01 in each ity of 5 mg/spray 00:00: nostril as [place] (0.1 mL) 00 needed Medical [place] (seizure). Branch levETIRAcet 0 Yes [id number] 1000mg Take 10 mL [facility] (KEPPRA) 2-01 by mouth ity of 100 mg/mL 00:00: in the [place] oral 00 morning Medical solution and 10 mL Branch in the evening. midazolam 2022-0 Yes [id number] 5mg Use 5 mg [facility] (NAYZILAM) 2-01 in each ity of 5 mg/spray 00:00: nostril as [place] (0.1 mL) 00 needed Medical [place] (seizure). Branch levETIRAcet 2022-0 Yes [id number] 1000mg Take 10 mL [facility] (KEPPRA) 2-01 by mouth ity of 100 mg/mL 00:00: in the [place] oral 00 morning Medical solution and 10 mL Branch in the evening. midazolam 0 Yes [id number] 5mg Use 5 mg [facility] (NAYZILAM) 2-01 in each ity of 5 mg/spray 00:00: nostril as [place] (0.1 mL) 00 needed Medical [place] (seizure). Branch levETIRAcet 0 Yes [id number] 1000mg Take 10 mL [facility] (KEPPRA) 2-01 by mouth ity of 100 mg/mL 00:00: in the [place] oral 00 morning Medical solution and 10 mL Branch in the evening. midazolam 0 Yes [id number] 5mg Use 5 mg [facility] (NAYZILAM) 2-01 in each ity of 5 mg/spray 00:00: nostril as [place] (0.1 mL) 00 needed Medical [place] (seizure). Branch levETIRAcet 0 Yes [id number] 1000mg Take 10 mL [facility] (KEPPRA) 2-01 by mouth ity of 100 mg/mL 00:00: in the [place] oral 00 morning Medical solution and 10 mL Branch in the evening. midazolam 0 Yes [id number] 5mg Use 5 mg [facility] (NAYZILAM) 2-01 in each ity of 5 mg/spray 00:00: nostril as [place] (0.1 mL) 00 needed Medical [place] (seizure). Branch levETIRAcet 0 Yes [id number] 1000mg Take 10 mL [facility] (KEPPRA) 2-01 by mouth ity of 100 mg/mL 00:00: in the [place] oral 00 morning Medical solution and 10 mL Branch in the evening. midazolam 2022-0 Yes [id number] 5mg Use 5 mg [facility] (NAYZILAM) 2-01 in each ity of 5 mg/spray 00:00: nostril as [place] (0.1 mL) 00 needed Medical [place] (seizure). Branch levETIRAcet 0 Yes [id number] 1000mg Take 10 mL [facility] (KEPPRA) 2-01 by mouth ity of 100 mg/mL 00:00: in the [place] oral 00 morning Medical solution and 10 mL Branch in the evening. midazolam Yes [id number] 5mg Use 5 mg [facility] (NAYZILAM) 2-01 in each ity of 5 mg/spray 00:00: nostril as [place] (0.1 mL) 00 needed Medical [place] (seizure). Branch levETIRAcet Yes [id number] 1000mg Take 10 mL [facility] (KEPPRA) 2-01 by mouth ity of 100 mg/mL 00:00: in the [place] oral 00 morning Medical solution and 10 mL Branch in the evening. midazolam Yes [id number] 5mg Use 5 mg [facility] (NAYZILAM) 2-01 in each ity of 5 mg/spray 00:00: nostril as [place] (0.1 mL) 00 needed Medical [place] (seizure). Branch levETIRAcet Yes [id number] 1000mg Take 10 mL [facility] (KEPPRA) 2-01 by mouth ity of 100 mg/mL 00:00: in the [place] oral 00 morning Medical solution and 10 mL Branch in the evening. midazolam Yes [id number] 5mg Use 5 mg [facility] (NAYZILAM) 2-01 in each ity of 5 mg/spray 00:00: nostril as [place] (0.1 mL) 00 needed Medical [place] (seizure). Branch levETIRAcet Yes [id number] 1000mg Take 10 mL [facility] (KEPPRA) 2-01 by mouth ity of 100 mg/mL 00:00: in the [place] oral 00 morning Medical solution and 10 mL Branch in the evening. midazolam 0 Yes [id number] 5mg Use 5 mg [facility] (NAYZILAM) 2-01 in each ity of 5 mg/spray 00:00: nostril as [place] (0.1 mL) 00 needed Medical [place] (seizure). Branch levETIRAcet Yes [id number] 1000mg Take 10 mL [facility] (KEPPRA) 2-01 by mouth ity of 100 mg/mL 00:00: in the [place] oral 00 morning Medical solution and 10 mL Branch in the evening. midazolam 0 Yes [id number] 5mg Use 5 mg [facility] (NAYZILAM) 2-01 in each ity of 5 mg/spray 00:00: nostril as [place] (0.1 mL) 00 needed Medical [place] (seizure). Branch levETIRAcet Yes [id number] 1000mg Take 10 mL [facility] (KEPPRA) 2-01 by mouth ity of 100 mg/mL 00:00: in the [place] oral 00 morning Medical solution and 10 mL Branch in the evening. midazolam Yes [id number] 5mg Use 5 mg [facility] (NAYZILAM) 2-01 in each ity of 5 mg/spray 00:00: nostril as [place] (0.1 mL) 00 needed Medical [place] (seizure). Branch levETIRAcet Yes [id number] 1000mg Take 10 mL [facility] (KEPPRA) 2-01 by mouth ity of 100 mg/mL 00:00: in the [place] oral 00 morning Medical solution and 10 mL Branch in the evening. midazolam Yes [id number] 5mg Use 5 mg [facility] (NAYZILAM) 2-01 in each ity of 5 mg/spray 00:00: nostril as [place] (0.1 mL) 00 needed Medical [place] (seizure). Branch levETIRAcet Yes [id number] 1000mg Take 10 mL [facility] (KEPPRA) 2-01 by mouth ity of 100 mg/mL 00:00: in the [place] oral 00 morning Medical solution and 10 mL Branch in the evening. midazolam 0 Yes [id number] 5mg Use 5 mg [facility] (NAYZILAM) 2-01 in each ity of 5 mg/spray 00:00: nostril as [place] (0.1 mL) 00 needed Medical [place] (seizure). Branch levETIRAcet Yes [id number] 1000mg Take 10 mL [facility] (KEPPRA) 2-01 by mouth ity of 100 mg/mL 00:00: in the [place] oral 00 morning Medical solution and 10 mL Branch in the evening. midazolam 0 Yes [id number] 5mg Use 5 mg [facility] (NAYZILAM) 2-01 in each ity of 5 mg/spray 00:00: nostril as [place] (0.1 mL) 00 needed [facility] [place] (seizure). Branch levETIRAcet Yes [id number] 1000mg Take 10 mL [facility] (KEPPRA) 2-01 by mouth ity of 100 mg/mL 00:00: in the [place] oral 00 morning Medical solution and 10 mL Branch in the evening. midazolam Yes [id number] 5mg Use 5 mg [facility] (NAYZILAM) 2-01 in each ity of 5 mg/spray 00:00: nostril as [place] (0.1 mL) 00 needed [facility] [place] (seizure). Branch levETIRAcet Yes [id number] 1000mg Take 10 mL [facility] (KEPPRA) 2-01 by mouth ity of 100 mg/mL 00:00: in the [place] oral 00 morning Medical solution and 10 mL Branch in the evening. midazolam Yes [id number] 5mg Use 5 mg [facility] (NAYZILAM) 2-01 in each ity of 5 mg/spray 00:00: nostril as [place] (0.1 mL) 00 needed [facility] [place] (seizure). Branch levETIRAcet Yes [id number] 1000mg Take 10 mL [facility] (KEPPRA) 2-01 by mouth ity of 100 mg/mL 00:00: in the [place] oral 00 morning Medical solution and 10 mL Branch in the evening. midazolam Yes [id number] 5mg Use 5 mg [facility] (NAYZILAM) 2-01 in each ity of 5 mg/spray 00:00: nostril as [place] (0.1 mL) 00 needed [facility] [place] (seizure). Branch levETIRAcet Yes [id number] 1000mg Take 10 mL [facility] (KEPPRA) 2-01 by mouth ity of 100 mg/mL 00:00: in the [place] oral 00 morning Medical solution and 10 mL Branch in the evening. midazolam 0 Yes [id number] 5mg Use 5 mg [facility] (NAYZILAM) 2-01 in each ity of 5 mg/spray 00:00: nostril as [place] (0.1 mL) 00 needed Medical [place] (seizure). Branch levETIRAcet Yes [id number] 1000mg Take 10 mL [facility] (KEPPRA) 2-01 by mouth ity of 100 mg/mL 00:00: in the [place] oral 00 morning Medical solution and 10 mL Branch in the evening. midazolam Yes [id number] 5mg Use 5 mg [facility] ([facility]YZILAM) 2-01 in each ity of 5 mg/spray 00:00: nostril as [place] (0.1 mL) 00 needed [facility] [place] (seizure). Branch levETIRAcet Yes [id number] 1000mg Take 10 mL [facility] (KEPPRA) 2-01 by mouth ity of 100 mg/mL 00:00: in the [place] oral 00 morning Medical solution and 10 mL Branch in the evening. midazolam Yes [id number] 5mg Use 5 mg [facility] (NAYZILAM) 2-01 in each ity of 5 mg/spray 00:00: nostril as [place] (0.1 mL) 00 needed [facility] [place] (seizure). Branch levETIRAcet Yes [id number] 1000mg Take 10 mL [facility] (KEPPRA) 2-01 by mouth ity of 100 mg/mL 00:00: in the [place] oral 00 morning Medical solution and 10 mL Branch in the evening. midazolam Yes [id number] 5mg Use 5 mg [facility] (NAYZILAM) 2-01 in each ity of 5 mg/spray 00:00: nostril as [place] (0.1 mL) 00 needed Medical [place] (seizure). Branch levETIRAcet Yes [id number] 1000mg Take 10 mL [facility] am (KEPPRA) 2-01 by mouth ity of 100 mg/mL 00:00: in the [place] oral 00 morning Medical solution and 10 mL Branch in the evening. midazolam 0 Yes [id number] 5mg Use 5 mg [facility] (NAYZILAM) 2-01 in each ity of 5 mg/spray 00:00: nostril as [place] (0.1 mL) 00 needed Medical [place] (seizure). Branch levETIRAcet 0 Yes [id number] 1000mg Take 10 mL [facility] am (KEPPRA) 2-01 by mouth ity of 100 mg/mL 00:00: in the [place] oral 00 morning Medical solution and 10 mL Branch in the evening. midazolam 0 Yes [id number] 5mg Use 5 mg [facility] (NAYZILAM) 2-01 in each ity of 5 mg/spray 00:00: nostril as [place] (0.1 mL) 00 needed Medical [place] (seizure). Branch levETIRAcet 0 Yes [id number] 1000mg Take 10 mL [facility] am (KEPPRA) 2-01 by mouth ity of 100 mg/mL 00:00: in the [place] oral 00 morning Medical solution and 10 mL Branch in the evening. midazolam 0 Yes [id number] 5mg Use 5 mg [facility] (NAYZILAM) 2-01 in each ity of 5 mg/spray 00:00: nostril as [place] (0.1 mL) 00 needed Medical [place] (seizure). Branch levETIRAcet 0 Yes [id number] 1000mg Take 10 mL [facility] am (KEPPRA) 2-01 by mouth ity of 100 mg/mL 00:00: in the [place] oral 00 morning Medical solution and 10 mL Branch in the evening. midazolam 0 Yes [id number] 5mg Use 5 mg [facility] (NAYZILAM) 2-01 in each ity of 5 mg/spray 00:00: nostril as [place] (0.1 mL) 00 needed Medical [place] (seizure). Branch levETIRAcet 0 Yes [id number] 1000mg Take 10 mL [facility] am (KEPPRA) 2-01 by mouth ity of 100 mg/mL 00:00: in the [place] oral 00 morning Medical solution and 10 mL Branch in the evening. midazolam 0 Yes [id number] 5mg Use 5 mg [facility] (NAYZILAM) 2-01 in each ity of 5 mg/spray 00:00: nostril as [place] (0.1 mL) 00 needed Medical [place] (seizure). Branch levETIRAcet 0 Yes [id number] 1000mg Take 10 mL [facility] am (KEPPRA) 2-01 by mouth ity of 100 mg/mL 00:00: in the [place] oral 00 morning Medical solution and 10 mL Branch in the evening. midazolam Yes [id number] 5mg Use 5 mg [facility] (NAYZILAM) 2-01 in each ity of 5 mg/spray 00:00: nostril as [place] (0.1 mL) 00 needed Medical [place] (seizure). Branch levETIRAcet Yes [id number] 1000mg Take 10 mL [facility] am (KEPPRA) 2-01 by mouth ity of 100 mg/mL 00:00: in the [facility] 00 morning Medical solution and 10 mL Branch in the evening. midazolam Yes [id number] 5mg Use 5 mg [facility] (NAYZILAM) 2-01 in each ity of 5 mg/spray 00:00: nostril as [place] (0.1 mL) 00 needed Medical [place] (seizure). Branch levETIRAcet Yes [id number] 1000mg Take 10 mL [facility] am (KEPPRA) 2-01 by mouth ity of 100 mg/mL 00:00: in the [place] [address] morning Medical solution and 10 mL Branch in the evening. midazolam Yes [id number] 5mg Use 5 mg [facility] (NAYZILAM) 2-01 in each ity of 5 mg/spray 00:00: nostril as [place] (0.1 mL) 00 needed Medical [place] (seizure). Branch levETIRAcet Yes [id number] 1000mg Take 10 mL [facility] am (KEPPRA) 2-01 by mouth ity of 100 mg/mL 00:00: in the [place] [address] morning Medical solution and 10 mL Branch in the evening. midazolam 0 Yes [id number] 5mg Use 5 mg [facility] (NAYZILAM) 2-01 in each ity of 5 mg/spray 00:00: nostril as [place] (0.1 mL) 00 needed Medical [place] (seizure). Branch midazolam Yes [id number] 5mg Use 5 mg [facility] (NAYZILAM) 2-01 in each ity of 5 mg/spray 00:00: nostril as [place] (0.1 mL) 00 needed Medical [place] (seizure). Branch midazolam Yes [id number] 5mg Use 5 mg [facility] (NAYZILAM) 2-01 in each ity of 5 mg/spray 00:00: nostril as [place] (0.1 mL) 00 needed Medical [place] (seizure). Branch midazolam Yes [id number] 5mg Use 5 mg [facility] (NAYZILAM) 2-01 in each ity of 5 mg/spray 00:00: nostril as [place] (0.1 mL) 00 needed Medical [place] (seizure). Branch midazolam Yes [id number] 5mg Use 5 mg [facility] (NAYZILAM) 2-01 in each ity of 5 mg/spray 00:00: nostril as [place] (0.1 mL) 00 needed Medical [place] (seizure). Branch midazolam Yes [id number] 5mg Use 5 mg [facility] (NAYZILAM) 2-01 in each ity of 5 mg/spray 00:00: nostril as [place] (0.1 mL) 00 needed Medical [place] (seizure). Branch midazolam Yes [id number] 5mg Use 5 mg [facility] (NAYZILAM) 2-01 in each ity of 5 mg/spray 00:00: nostril as [place] (0.1 mL) 00 needed Medical [place] (seizure). Branch midazolam Yes [id number] 5mg Use 5 mg [facility] (NAYZILAM) 2-01 in each ity of 5 mg/spray 00:00: nostril as [place] (0.1 mL) 00 needed Medical [place] (seizure). Branch midazolam Yes [id number] 5mg Use 5 mg [facility] (NAYZILAM) 2-01 in each ity of 5 mg/spray 00:00: nostril as [place] (0.1 mL) 00 needed Medical [place] (seizure). Branch midazolam Yes [id number] 5mg Use 5 mg [facility] (NAYZILAM) 2-01 in each ity of 5 mg/spray 00:00: nostril as [place] (0.1 mL) 00 needed Medical [place] (seizure). Branch midazolam Yes [id number] 5mg Use 5 mg [facility] (NAYZILAM) 2-01 in each ity of 5 mg/spray 00:00: nostril as [place] (0.1 mL) 00 needed Medical [place] (seizure). Branch midazolam Yes [id number] 5mg Use 5 mg [facility] (NAYZILAM) 2-01 in each ity of 5 mg/spray 00:00: nostril as [place] (0.1 mL) 00 needed Medical [place] (seizure). Branch midazolam Yes [id number] 5mg Use 5 mg [facility] (NAYZILAM) 2-01 in each ity of 5 mg/spray 00:00: nostril as [place] (0.1 mL) 00 needed Medical [place] (seizure). Branch midazolam Yes [id number] 5mg Use 5 mg [facility] (NAYZILAM) 2-01 in each ity of 5 mg/spray 00:00: nostril as [place] (0.1 mL) 00 needed Medical [place] (seizure). Branch midazolam Yes [id number] 5mg Use 5 mg [facility] (NAYZILAM) 2-01 in each ity of 5 mg/spray 00:00: nostril as [place] (0.1 mL) 00 needed Medical [place] (seizure). Branch midazolam Yes [id number] 5mg Use 5 mg [facility] (NAYZILAM) 2-01 in each ity of 5 mg/spray 00:00: nostril as [place] (0.1 mL) 00 needed Medical [place] (seizure). Branch midazolam Yes [id number] 5mg Use 5 mg [facility] (NAYZILAM) 2-01 in each ity of 5 mg/spray 00:00: nostril as [place] (0.1 mL) 00 needed Medical [place] (seizure). Branch midazolam Yes [id number] 5mg Use 5 mg [facility] (NAYZILAM) 2-01 in each ity of 5 mg/spray 00:00: nostril as [place] (0.1 mL) 00 needed Medical [place] (seizure). Branch midazolam Yes [id number] 5mg Use 5 mg [facility] (NAYZILAM) 2-01 in each ity of 5 mg/spray 00:00: nostril as [place] (0.1 mL) 00 needed Medical [place] (seizure). Branch midazolam Yes [id number] 5mg Use 5 mg [facility] (NAYZILAM) 2-01 in each ity of 5 mg/spray 00:00: nostril as [place] (0.1 mL) 00 needed Medical [place] (seizure). Branch midazolam Yes [id number] 5mg Use 5 mg [facility] (NAYZILAM) 2-01 in each ity of 5 mg/spray 00:00: nostril as [place] (0.1 mL) 00 needed Medical [place] (seizure). Branch midazolam Yes [id number] 5mg Use 5 mg [facility] (NAYZILAM) 2-01 in each ity of 5 mg/spray 00:00: nostril as [place] (0.1 mL) 00 needed Medical [place] (seizure). Branch midazolam Yes [id number] 5mg Use 5 mg [facility] (NAYZILAM) 2-01 in each ity of 5 mg/spray 00:00: nostril as [place] (0.1 mL) 00 needed Medical [place] (seizure). Branch midazolam Yes [id number] 5mg Use 5 mg [facility] (NAYZILAM) 2-01 in each ity of 5 mg/spray 00:00: nostril as [place] (0.1 mL) 00 needed Medical [place] (seizure). Branch midazolam Yes [id number] 5mg Use 5 mg [facility] (NAYZILAM) 2-01 in each ity of 5 mg/spray 00:00: nostril as [place] (0.1 mL) 00 needed Medical [place] (seizure). Branch midazolam Yes [id number] 5mg Use 5 mg [facility] (NAYZILAM) 2-01 in each ity of 5 mg/spray 00:00: nostril as [place] (0.1 mL) 00 needed Medical [place] (seizure). Branch midazolam Yes [id number] 5mg Use 5 mg [facility] (NAYZILAM) 2-01 in each ity of 5 mg/spray 00:00: nostril as [place] (0.1 mL) 00 needed Medical [place] (seizure). Branch midazolam Yes [id number] 5mg Use 5 mg [facility] (NAYZILAM) 2-01 in each ity of 5 mg/spray 00:00: nostril as [place] (0.1 mL) 00 needed Medical [place] (seizure). Branch midazolam Yes [id number] 5mg Use 5 mg [facility] (NAYZILAM) 2-01 in each ity of 5 mg/spray 00:00: nostril as [place] (0.1 mL) 00 needed Medical [place] (seizure). Branch midazolam Yes [id number] 5mg Use 5 mg [facility] (NAYZILAM) 2-01 in each ity of 5 mg/spray 00:00: nostril as [place] (0.1 mL) 00 needed Medical [place] (seizure). Branch midazolam Yes [id number] 5mg Use 5 mg [facility] (NAYZILAM) 2-01 in each ity of 5 mg/spray 00:00: nostril as [place] (0.1 mL) 00 needed Medical [place] (seizure). Branch midazolam Yes [id number] 5mg Use 5 mg [facility] (NAYZILAM) 2-01 in each ity of 5 mg/spray 00:00: nostril as [place] (0.1 mL) 00 needed Medical [place] (seizure). Branch midazolam Yes [id number] 5mg Use 5 mg [facility] (NAYZILAM) 2-01 in each ity of 5 mg/spray 00:00: nostril as [place] (0.1 mL) 00 needed Medical [place] (seizure). Branch levETIRAcet 2022- No [id number] 1000mg Take 10 mL [facility] am (KEPPRA) 08-19 by mouth ity of 100 mg/mL 00:00: 00:00 in the [place] oral 00 :00 morning Medical solution and 10 mL Branch in the evening. SUMAtriptan 2022- No [id number] 20mg Use 1 [facility] 20 2 06-05 [place] in 1 ity of mg/actuatio 00:00: 00:00 nostril as [place] n nasal 00 :00 needed Medical [place] (migraine) Branch . SUMAtriptan 2022-0 2022- No [id number] 20mg Use 1 [facility] 20 2 06-05 [place] in 1 ity of mg/actuatio 00:00: 00:00 nostril as [place] n nasal 00 :00 needed Medical spray (migraine) Branch . SUMAtriptan 2022-0 3- No [id number] 20mg Use 1 [facility] 20 08-19 06-05 [place] in 1 ity of mg/actuatio 00:00: 00:00 nostril as [place] n nasal 00 :00 needed Medical spray (migraine) Branch . cariprazine 2022-0 Yes 1.5mg Take 1.5 U [...] 36 every Medical CpPk morning. Branch cariprazine 2023-0 Yes 1.5mg Take 1.5 U nivers (VRAYLAR) 1-31 mg by ity of 1.5 mg (1)- 10:52: mouth [place] 3 mg (6) 36 every Medical CpPk morning. Branch cariprazine 2023-0 Yes 1.5mg Take 1.5 U nivers (VRAYLAR) [...] OR FOR WHEEZING/S HORTNESS OF BREATH. levalbutero 3-0 2023- No INHALE 2 U nivers l (XOPENEX 08-18 08-07 PUFFS BY ity of HFA) 45 00:00: 00:00 MOUTH [place] mcg/actuati 00 :00 EVERY 6 Medic al on inhaler HOURS Branc h NEEDED BEFORE EXERCISE OR FOR WHEEZING/S HORTNESS OF BREATH. levalbutero 2022-0 2022- No INHALE 2 U nivers l (XOPENEX 08-18 08-07 PUFFS BY ity of HFA) 45 00:00: 00:00 MOUTH [place] mcg/actuati 00 :00 EVERY 6 Medic al on inhaler HOURS Branc h NEEDED BEFORE EXERCISE OR FOR WHEEZING/S HORTNESS OF BREATH. ciprofloxac 2022-0 3- No [id number] 500mg Take 10 mL [facility] in (CIPRO) 08-18 by mouth ity of 250 mg/5 mL 00:00: 05:59 every 12 [place] suspension 00 :00 (twelve) Medic al hours for Branch 5 days. ciprofloxac 3-0 3- No [id number] 500mg Take 10 mL [facility] in (CIPRO) 08-18 by mouth ity of 250 mg/5 mL 00:00: 05:59 every 12 [place] suspension 00 :00 (twelve) Medic al hours for Branch 5 days. ciprofloxac 3-0 2023- No [id number] 500mg Take 10 mL [facility] in (CIPRO) 08-18 by mouth ity of 250 mg/5 mL 00:00: 05:59 every 12 [place] suspension 00 :00 (twelve) Medic al hours for Branch 5 days. ciprofloxac 2023-0 2023- No [id number] 500mg Take 10 mL [facility] in (CIPRO) 08-18 by mouth ity of 250 mg/5 mL 00:00: 05:59 every 12 [place] suspension 00 :00 (twelve) Medic al hours for Branch 5 days. ciprofloxac 2023-0 2023- No [id number] 500mg Take 10 mL [facility] in (CIPRO) 08-18 by mouth ity of 250 mg/5 mL 00:00: 05:59 every 12 [place] suspension 00 :00 (twelve) Medic al hours for Branch 5 days. ciprofloxac 3-0 2023- No [id number] 500mg Take 10 mL [facility] in (CIPRO) 08-18 by mouth ity of 250 mg/5 mL 00:00: 05:59 every 12 [place] suspension 00 :00 (twelve) Medic al hours for Branch 5 days. ciprofloxac 3-0 2023- No [id number] 500mg Take 10 mL [facility] in (CIPRO) 08-18 by mouth ity of 250 mg/5 mL 00:00: 05:59 every 12 [place] suspension 00 :00 (twelve) Medic al hours for Branch 5 days. ciprofloxac 3-0 3- No [id number] 500mg Take 10 mL [facility] in (CIPRO) 08-18 by mouth ity of 250 mg/5 mL 00:00: 05:59 every 12 [place] suspension 00 :00 (twelve) Medic al hours for Branch 5 days. dexamethaso 2023-0 2023- No 12mg Take 120 U nivers ne 0.1 08-18-03 mL by ity of mg/mL LOW 00:00: 05:59 mouth in [place] as [facility] 00 :00 the Medical ON solution morning Branc h for 2 days. dexamethaso 2023-0 2023- No 12mg Take 120 U nivers ne 0.1 08-18-03 mL by ity of mg/mL LOW 00:00: 05:59 mouth in [place] as [facility] 00 :00 the Medical ON solution morning Branc h for 2 days. dexamethaso 2023-0 2023- No 12mg Take 120 U nivers ne 0.1 08-18 02-03 mL by ity of mg/mL LOW 00:00: 05:59 mouth in [place] as [facility] 00 :00 the Medical ON solution morning Branc h for 2 days. dexamethaso 2023-0 2023- No 12mg Take 120 U nivers ne 0.1 08-18 02-03 mL by ity of mg/mL LOW 00:00: 05:59 mouth in [place] as [facility] 00 :00 the Medical ON solution morning Branc h for 2 days. dexamethaso 2022-0 2022- No 12mg Take 120 U nivers ne 0.1 31 02-03 mL by ity of mg/mL LOW 00:00: 05:59 mouth in [place] as [facility] 00 :00 the Medical ON solution morning Branc h for 2 days. dexamethaso 2022-0 2022- No 12mg Take 120 U nivers ne 0.1 1-31 02-03 mL by ity of mg/mL LOW 00:00: 05:59 mouth in [place] as [facility] 00 :00 the Medical ON solution morning Branc h for 2 days. benralizuma 2022-0 Yes [id number] 30mg inject 1 [facility] b (FASENRA 1-24 Pen under ity of PEN) 30 00:00: the skin [place] mg/mL AtIn 00 every 8 Medica l (eight) Branch weeks. benralizuma 2022-0 Yes [id number] 30mg inject 1 [facility] b (FASENRA 1-24 Pen under ity of PEN) 30 00:00: the skin [place] mg/mL AtIn 00 every 8 Medica l (eight) Branch weeks. benralizuma 2022-0 Yes [id number] 30mg inject 1 [facility] b (FASENRA 1-24 Pen under ity of PEN) 30 00:00: the skin [place] mg/mL AtIn 00 every 8 Medica l (eight) Branch weeks. benralizuma 2022-0 Yes [id number] 30mg inject 1 [facility] b (FASENRA 1-24 Pen under ity of PEN) 30 00:00: the skin [place] mg/mL AtIn 00 every 8 Medica l (eight) Branch weeks. benralizuma 2022-0 Yes [id number] 30mg inject 1 [facility] b (FASENRA 1-24 Pen under ity of PEN) 30 00:00: the skin [place] mg/mL AtIn 00 every 8 Medica l (eight) Branch weeks. benralizuma 2022-0 Yes [id number] 30mg inject 1 [facility] b (FASENRA 1-24 Pen under ity of PEN) 30 00:00: the skin [place] mg/mL AtIn 00 every 8 Medica l (eight) Branch weeks. benralizuma 2023-0 Yes [id number] 30mg inject 1 [facility] b (FASENRA 1-24 Pen under ity of PEN) 30 00:00: the skin [place] mg/mL AtIn 00 every 8 Medica l (eight) Branch weeks. benralizuma 2023-0 Yes [id number] 30mg inject 1 [facility] b (FASENRA 1-24 Pen under ity of PEN) 30 00:00: the skin [place] mg/mL AtIn 00 every 8 Medica l (eight) Branch weeks. benralizuma 2023-0 Yes [id number] 30mg inject 1 [facility] b (FASENRA 1-24 Pen under ity of PEN) 30 00:00: the skin [place] mg/mL AtIn 00 every 8 Medica l (eight) Branch weeks. benralizuma 2023-0 Yes [id number] 30mg inject 1 [facility] b (FASENRA 1-24 Pen under ity of PEN) 30 00:00: the skin [place] mg/mL AtIn 00 every 8 Medica l (eight) Branch weeks. benralizuma 2023-0 Yes [id number] 30mg inject 1 [facility] b (FASENRA 1-24 Pen under ity of PEN) 30 00:00: the skin [place] mg/mL AtIn 00 every 8 Medica l (eight) Branch weeks. benralizuma 2023-0 Yes [id number] 30mg inject 1 [facility] b (FASENRA 1-24 Pen under ity of PEN) 30 00:00: the skin [place] mg/mL AtIn 00 every 8 Medica l (eight) Branch weeks. benralizuma 2023-0 Yes [id number] 30mg inject 1 [facility] b (FASENRA 1-24 Pen under ity of PEN) 30 00:00: the skin [place] mg/mL AtIn 00 every 8 Medica l (eight) Branch weeks. benralizuma 2023-0 Yes [id number] 30mg inject 1 [facility] b (FASENRA 1-24 Pen under ity of PEN) 30 00:00: the skin [place] mg/mL AtIn 00 every 8 Medica l (eight) Branch weeks. benralizuma 2023-0 Yes [id number] 30mg inject 1 [facility] b (FASENRA 1-24 Pen under ity of PEN) 30 00:00: the skin [place] mg/mL AtIn 00 every 8 Medica l (eight) Branch weeks. benralizuma 2023-0 Yes [id number] 30mg inject 1 [facility] b (FASENRA 1-24 Pen under ity of PEN) 30 00:00: the skin [place] mg/mL AtIn 00 every 8 Medica l (eight) Branch weeks. benralizuma 2023-0 Yes [id number] 30mg inject 1 [facility] b (FASENRA 1-24 Pen under ity of PEN) 30 00:00: the skin [place] mg/mL AtIn 00 every 8 Medica l (eight) Branch weeks. benralizuma 2023-0 Yes [id number] 30mg inject 1 [facility] b (FASENRA 1-24 Pen under ity of PEN) 30 00:00: the skin [place] mg/mL AtIn 00 every 8 Medica l (eight) Branch weeks. benralizuma 3-0 Yes [id number] 30mg inject 1 [facility] b (FASENRA 1-24 Pen under ity of PEN) 30 00:00: the skin [place] mg/mL AtIn 00 every 8 Medica l (eight) Branch weeks. benralizuma 3-0 Yes [id number] 30mg inject 1 [facility] b (FASENRA 1-24 Pen under ity of PEN) 30 00:00: the skin [place] mg/mL AtIn 00 every 8 Medica l (eight) Branch weeks. benralizuma 2023-0 Yes [id number] 30mg inject 1 [facility] b (FASENRA 1-24 Pen under ity of PEN) 30 00:00: the skin [place] mg/mL AtIn 00 every 8 Medica l (eight) Branch weeks. benralizuma 2023-0 Yes [id number] 30mg inject 1 [facility] b (FASENRA 1-24 Pen under ity of PEN) 30 00:00: the skin [place] mg/mL AtIn 00 every 8 Medica l (eight) Branch weeks. benralizuma 2023-0 Yes [id number] 30mg inject 1 [facility] b (FASENRA 1-24 Pen under ity of PEN) 30 00:00: the skin [place] mg/mL AtIn 00 every 8 Medica l (eight) Branch weeks. benralizuma 2023-0 Yes [id number] 30mg inject 1 [facility] b (FASENRA 1-24 Pen under ity of PEN) 30 00:00: the skin [place] mg/mL AtIn 00 every 8 Medica l (eight) Branch weeks. benralizuma 2023-0 Yes [id number] 30mg inject 1 [facility] b (FASENRA 1-24 Pen under ity of PEN) 30 00:00: the skin [place] mg/mL AtIn 00 every 8 Medica l (eight) Branch weeks. benralizuma 2023-0 Yes [id number] 30mg inject 1 [facility] b (FASENRA 1-24 Pen under ity of PEN) 30 00:00: the skin [place] mg/mL AtIn 00 every 8 Medica l (eight) Branch weeks. benralizuma 2023-0 Yes [id number] 30mg inject 1 [facility] b (FASENRA 1-24 Pen under ity of PEN) 30 00:00: the skin [place] mg/mL AtIn 00 every 8 Medica l (eight) Branch weeks. benralizuma 3-0 Yes [id number] 30mg inject 1 [facility] b (FASENRA 1-24 Pen under ity of PEN) 30 00:00: the skin [place] mg/mL AtIn 00 every 8 Medica l (eight) Branch weeks. benralizuma 2023-0 Yes [id number] 30mg inject 1 [facility] b (FASENRA 1-24 Pen under ity of PEN) 30 00:00: the skin [place] mg/mL AtIn 00 every 8 Medica l (eight) Branch weeks. benralizuma 2023-0 Yes [id number] 30mg inject 1 [facility] b (FASENRA 1-24 Pen under ity of PEN) 30 00:00: the skin [place] mg/mL AtIn 00 every 8 Medica l (eight) Branch weeks. benralizuma 2023-0 Yes [id number] 30mg inject 1 [facility] b (FASENRA 1-24 Pen under ity of PEN) 30 00:00: the skin [place] mg/mL AtIn 00 every 8 Medica l (eight) Branch weeks. benralizuma 2023-0 Yes [id number] 30mg inject 1 [facility] b (FASENRA 1-24 Pen under ity of PEN) 30 00:00: the skin [place] mg/mL AtIn 00 every 8 Medica l (eight) Branch weeks. benralizuma 2023-0 Yes [id number] 30mg inject 1 [facility] b (FASENRA 1-24 Pen under ity of PEN) 30 00:00: the skin [place] mg/mL AtIn 00 every 8 Medica l (eight) Branch weeks. benralizuma 2023-0 Yes [id number] 30mg inject 1 [facility] b (FASENRA 1-24 Pen under ity of PEN) 30 00:00: the skin [place] mg/mL AtIn 00 every 8 Medica l (eight) Branch weeks. benralizuma 2023-0 Yes [id number] 30mg inject 1 [facility] b (FASENRA 1-24 Pen under ity of PEN) 30 00:00: the skin [place] mg/mL AtIn 00 every 8 Medica l (eight) Branch weeks. benralizuma 2023-0 Yes [id number] 30mg inject 1 [facility] b (FASENRA 1-24 Pen under ity of PEN) 30 00:00: the skin [place] mg/mL AtIn 00 every 8 Medica l (eight) Branch weeks. benralizuma 2023-0 Yes [id number] 30mg inject 1 [facility] b (FASENRA 1-24 Pen under ity of PEN) 30 00:00: the skin [place] mg/mL AtIn 00 every 8 Medica l (eight) Branch weeks. benralizuma 2023-0 Yes [id number] 30mg inject 1 [facility] b (FASENRA 1-24 Pen under ity of PEN) 30 00:00: the skin [place] mg/mL AtIn 00 every 8 Medica l (eight) Branch weeks. benralizuma 2023-0 Yes [id number] 30mg inject 1 [facility] b (FASENRA 1-24 Pen under ity of PEN) 30 00:00: the skin [place] mg/mL AtIn 00 every 8 Medica l (eight) Branch weeks. benralizuma 2023-0 Yes [id number] 30mg inject 1 [facility] b (FASENRA 1-24 Pen under ity of PEN) 30 00:00: the skin [place] mg/mL AtIn 00 every 8 Medica l (eight) Branch weeks. benralizuma 2023-0 Yes [id number] 30mg inject 1 [facility] b (FASENRA 1-24 Pen under ity of PEN) 30 00:00: the skin [place] mg/mL AtIn 00 every 8 Medica l (eight) Branch weeks. benralizuma 2023-0 Yes [id number] 30mg inject 1 [facility] b (FASENRA 1-24 Pen under ity of PEN) 30 00:00: the skin [place] mg/mL AtIn 00 every 8 Medica l (eight) Branch weeks. benralizuma 3-0 Yes [id number] 30mg inject 1 [facility] b (FASENRA 1-24 Pen under ity of PEN) 30 00:00: the skin [place] mg/mL AtIn 00 every 8 Medica l (eight) Branch weeks. benralizuma 3-0 Yes [id number] 30mg inject 1 [facility] b (FASENRA 1-24 Pen under ity of PEN) 30 00:00: the skin [place] mg/mL AtIn 00 every 8 Medica l (eight) Branch weeks. benralizuma 3-0 Yes [id number] 30mg inject 1 [facility] b (FASENRA 1-24 Pen under ity of PEN) 30 00:00: the skin [place] mg/mL AtIn 00 every 8 Medica l (eight) Branch weeks. benralizuma 3-0 Yes [id number] 30mg inject 1 [facility] b (FASENRA 1-24 Pen under ity of PEN) 30 00:00: the skin [place] mg/mL AtIn 00 every 8 Medica l (eight) Branch weeks. benralizuma 3-0 Yes [id number] 30mg inject 1 [facility] b (FASENRA 1-24 Pen under ity of PEN) 30 00:00: the skin [place] mg/mL AtIn 00 every 8 Medica l (eight) Branch weeks. benralizuma 2023-0 Yes [id number] 30mg inject 1 [facility] b (FASENRA 1-24 Pen under ity of PEN) 30 00:00: the skin [place] mg/mL AtIn 00 every 8 Medica l (eight) Branch weeks. benralizuma 2023-0 Yes [id number] 30mg inject 1 [facility] b (FASENRA 1-24 Pen under ity of PEN) 30 00:00: the skin [place] mg/mL AtIn 00 every 8 Medica l (eight) Branch weeks. benralizuma 2023-0 Yes [id number] 30mg inject 1 [facility] b (FASENRA 1-24 Pen under ity of PEN) 30 00:00: the skin [place] mg/mL AtIn 00 every 8 Medica l (eight) Branch weeks. benralizuma 2023-0 Yes [id number] 30mg inject 1 [facility] b (FASENRA 1-24 Pen under ity of PEN) 30 00:00: the skin [place] mg/mL AtIn 00 every 8 Medica l (eight) Branch weeks. benralizuma 2023-0 Yes [id number] 30mg inject 1 [facility] b (FASENRA 1-24 Pen under ity of PEN) 30 00:00: the skin [place] mg/mL AtIn 00 every 8 Medica l (eight) Branch weeks. benralizuma 2023-0 Yes [id number] 30mg inject 1 [facility] b (FASENRA 1-24 Pen under ity of PEN) 30 00:00: the skin [place] mg/mL AtIn 00 every 8 Medica l (eight) Branch weeks. benralizuma 2023-0 Yes [id number] 30mg inject 1 [facility] b (FASENRA 1-24 Pen under ity of PEN) 30 00:00: the skin [place] mg/mL AtIn 00 every 8 Medica l (eight) Branch weeks. benralizuma 2023-0 Yes [id number] 30mg inject 1 [facility] b (FASENRA 1-24 Pen under ity of PEN) 30 00:00: the skin [place] mg/mL AtIn 00 every 8 Medica l (eight) Branch weeks. benralizuma 2023-0 Yes [id number] 30mg inject 1 [facility] b (FASENRA 1-24 Pen under ity of PEN) 30 00:00: the skin [place] mg/mL AtIn 00 every 8 Medica l (eight) Branch weeks. benralizuma 2023-0 Yes [id number] 30mg inject 1 [facility] b (FASENRA 1-24 Pen under ity of PEN) 30 00:00: the skin [place] mg/mL AtIn 00 every 8 Medica l (eight) Branch weeks. benralizuma 2023-0 Yes [id number] 30mg inject 1 [facility] b (FASENRA 1-24 Pen under ity of PEN) 30 00:00: the skin [place] mg/mL AtIn 00 every 8 [facility] (eight) Branch weeks. benralizuma 2023-0 Yes [id number] 30mg inject 1 [facility] (FASENRA 1-24 Pen under ity of PEN) 30 00:00: the skin [place] mg/mL AtIn 00 every 8 [facility] (eight) Branch weeks. benralizuma 2023-0 Yes [id number] 30mg inject 1 [facility] (FASENRA 1-24 Pen under ity of PEN) 30 00:00: the skin [place] mg/mL AtIn 00 every 8 [facility] (eight) Branch weeks. benralizuma 2023-0 Yes [id number] 30mg inject 1 [facility] (FASENRA 1-24 Pen under ity of PEN) 30 00:00: the skin [place] mg/mL AtIn 00 every 8 [facility] (eight) Branch weeks. benralizuma 2023-0 Yes [id number] 30mg inject 1 [facility] (FASENRA 1-24 Pen under ity of PEN) 30 00:00: the skin [place] mg/mL AtIn 00 every 8 [facility] (eight) Branch weeks. benralizuma 2023-0 Yes [id number] 30mg inject 1 [facility] (FASENRA 1-24 Pen under ity of PEN) 30 00:00: the skin [place] mg/mL AtIn 00 every 8 [facility] (eight) Branch weeks. benralizuma 2023-0 Yes [id number] 30mg inject 1 [facility] (FASENRA 1-24 Pen under ity of PEN) 30 00:00: the skin [place] mg/mL AtIn 00 every 8 [facility] (eight) Branch weeks. benralizuma 2023-0 Yes [id number] 30mg inject 1 [facility] (FASENRA 1-24 Pen under ity of PEN) 30 00:00: the skin [place] mg/mL AtIn 00 every 8 [facility] (eight) Branch weeks. benralizuma 2023-0 Yes [id number] 30mg inject 1 [facility] (FASENRA 1-24 Pen under ity of PEN) 30 00:00: the skin [place] mg/mL AtIn 00 every 8 [facility] (eight) Branch weeks. benralizuma 2023-0 Yes [id number] 30mg inject 1 [facility] (FASENRA 1-24 Pen under ity of PEN) 30 00:00: the skin [place] mg/mL AtIn 00 every 8 [facility] (eight) Branch weeks. benralizuma 3-0 Yes [id number] 30mg inject 1 [facility] (FASENRA 1-24 Pen under ity of PEN) 30 00:00: the skin [place] mg/mL AtIn 00 every 8 [facility] (eight) Branch weeks. benralizuma 3-0 Yes [id number] 30mg inject 1 [facility] (FASENRA 1-24 Pen under ity of PEN) 30 00:00: the skin [place] mg/mL AtIn 00 every 8 [facility] (eight) Branch weeks. benralizuma 3-0 Yes [id number] 30mg inject 1 [facility] (FASENRA 1-24 Pen under ity of PEN) 30 00:00: the skin [place] mg/mL AtIn 00 every 8 [facility] (eight) Branch weeks. benralizuma 3-0 Yes [id number] 30mg inject 1 [facility] (FASENRA 1-24 Pen under ity of PEN) 30 00:00: the skin [place] mg/mL AtIn 00 every 8 [facility] (eight) Branch weeks. benralizuma 3-0 Yes [id number] 30mg inject 1 [facility] (FASENRA 1-24 Pen under ity of PEN) 30 00:00: the skin [place] mg/mL AtIn 00 every 8 [facility] (eight) Branch weeks. benralizuma 3-0 Yes [id number] 30mg inject 1 [facility] (FASENRA 1-24 Pen under ity of PEN) 30 00:00: the skin [place] mg/mL AtIn 00 every 8 [facility] (eight) Branch weeks. benralizuma 2023-0 Yes [id number] 30mg inject 1 [facility] (FASENRA 1-24 Pen under ity of PEN) 30 00:00: the skin [place] mg/mL AtIn 00 every 8 [facility] (eight) Branch weeks. benralizuma 2023-0 Yes [id number] 30mg inject 1 [facility] (FASENRA 1-24 Pen under ity of PEN) 30 00:00: the skin [place] mg/mL AtIn 00 every 8 [facility] (eight) Branch weeks. benralizuma 2023-0 Yes [id number] 30mg inject 1 [facility] (FASENRA 1-24 Pen under ity of PEN) 30 00:00: the skin [place] mg/mL AtIn 00 every 8 [facility] (eight) Branch weeks. benralizuma 2023-0 Yes [id number] 30mg inject 1 [facility] (FASENRA 1-24 Pen under ity of PEN) 30 00:00: the skin [place] mg/mL AtIn 00 every 8 [facility] (eight) Branch weeks. benralizuma 2023-0 Yes [id number] 30mg inject 1 [facility] (FASENRA 1-24 Pen under ity of PEN) 30 00:00: the skin [place] mg/mL AtIn 00 every 8 [facility] (eight) Branch weeks. benralizuma 2023-0 Yes [id number] 30mg inject 1 [facility] (FASENRA 1-24 Pen under ity of PEN) 30 00:00: the skin [place] mg/mL AtIn 00 every 8 [facility] (eight) Branch weeks. benralizuma 2023-0 Yes [id number] 30mg inject 1 [facility] (FASENRA 1-24 Pen under ity of PEN) 30 00:00: the skin [place] mg/mL AtIn 00 every 8 [facility] (eight) Branch weeks. benralizuma 2023-0 Yes [id number] 30mg inject 1 [facility] (FASENRA 1-24 Pen under ity of PEN) 30 00:00: the skin [place] mg/mL AtIn 00 every 8 [facility] (eight) Branch weeks. benralizuma 2023-0 Yes [id number] 30mg inject 1 [facility] (FASENRA 1-24 Pen under ity of PEN) 30 00:00: the skin [place] mg/mL AtIn 00 every 8 [facility] (eight) Branch weeks. benralizuma 2023-0 Yes [id number] 30mg inject 1 [facility] (FASENRA 1-24 Pen under ity of PEN) 30 00:00: the skin [place] mg/mL AtIn 00 every 8 [facility] (eight) Branch weeks. benralizuma 2023-0 Yes [id number] 30mg inject 1 [facility] (FASENRA 1-24 Pen under ity of PEN) 30 00:00: the skin [place] mg/mL AtIn 00 every 8 [facility] (eight) Branch weeks. benralizuma 2023-0 Yes [id number] 30mg inject 1 [facility] (FASENRA 1-24 Pen under ity of PEN) 30 00:00: the skin [place] mg/mL AtIn 00 every 8 [facility] (eight) Branch weeks. benralizuma 2023-0 Yes [id number] 30mg inject 1 [facility] (FASENRA 1-24 Pen under ity of PEN) 30 00:00: the skin [place] mg/mL AtIn 00 every 8 [facility] (eight) Branch weeks. benralizuma 2023-0 Yes [id number] 30mg inject 1 [facility] (FASENRA 1-24 Pen under ity of PEN) 30 00:00: the skin [place] mg/mL AtIn 00 every 8 [facility] (eight) Branch weeks. benralizuma 3-0 Yes [id number] 30mg inject 1 [facility] (FASENRA 1-24 Pen under ity of PEN) 30 00:00: the skin [place] mg/mL AtIn 00 every 8 [facility] (eight) Branch weeks. benralizuma 3-0 Yes [id number] 30mg inject 1 [facility] (FASENRA 1-24 Pen under ity of PEN) 30 00:00: the skin [place] mg/mL AtIn 00 every 8 [facility] (eight) Branch weeks. benralizuma 3-0 Yes [id number] 30mg inject 1 [facility] (FASENRA 1-24 Pen under ity of PEN) 30 00:00: the skin [place] mg/mL AtIn 00 every 8 [facility] (eight) Branch weeks. benralizuma 2023-0 Yes [id number] 30mg inject 1 [facility] (FASENRA 1-24 Pen under ity of PEN) 30 00:00: the skin [place] mg/mL AtIn 00 every 8 [facility] (eight) Branch weeks. benralizuma 2023-0 Yes [id number] 30mg inject 1 [facility] (FASENRA 1-24 Pen under ity of PEN) 30 00:00: the skin [place] mg/mL AtIn 00 every 8 [facility] (eight) Branch weeks. benralizuma 2023-0 Yes [id number] 30mg inject 1 [facility] (FASENRA 1-24 Pen under ity of PEN) 30 00:00: the skin [place] mg/mL AtIn 00 every 8 [facility] (eight) Branch weeks. benralizuma 2023-0 Yes [id number] 30mg inject 1 [facility] (FASENRA 1-24 Pen under ity of PEN) 30 00:00: the skin [place] mg/mL AtIn 00 every 8 [facility] (eight) Branch weeks. benralizuma 2023-0 Yes [id number] 30mg inject 1 [facility] (FASENRA 1-24 Pen under ity of PEN) 30 00:00: the skin [place] mg/mL AtIn 00 every 8 [facility] (eight) Branch weeks. benralizuma 2023-0 Yes [id number] 30mg inject 1 [facility] (FASENRA 1-24 Pen under ity of PEN) 30 00:00: the skin [place] mg/mL AtIn 00 every 8 [facility] (eight) Branch weeks. benralizuma 3-0 Yes [id number] 30mg inject 1 [facility] (FASENRA 1-24 Pen under ity of PEN) 30 00:00: the skin [place] mg/mL AtIn 00 every 8 [facility] (eight) Branch weeks. benralizuma 3-0 Yes [id number] 30mg inject 1 [facility] (FASENRA 1-24 Pen under ity of PEN) 30 00:00: the skin [place] mg/mL AtIn 00 every 8 [facility] (eight) Branch weeks. benralizuma 2023-0 Yes [id number] 30mg inject 1 [facility] (FASENRA 1-24 Pen under ity of PEN) 30 00:00: the skin [place] mg/mL AtIn 00 every 8 Med[facility] (eight) Branch weeks. benralizuma 2023-0 Yes [id number] 30mg inject 1 [facility] (FASENRA 1-24 Pen under ity of PEN) 30 00:00: the skin [place] mg/mL AtIn 00 every 8 [facility] (eight) Branch weeks. benralizuma 2023-0 Yes [id number] 30mg inject 1 [facility] (FASENRA 1-24 Pen under ity of PEN) 30 00:00: the skin [place] mg/mL AtIn 00 every 8 [facility] (eight) Branch weeks. benralizuma 2023-0 Yes [id number] 30mg inject 1 [facility] (FASENRA 1-24 Pen under ity of PEN) 30 00:00: the skin [place] mg/mL AtIn 00 every 8 [facility] (eight) Branch weeks. benralizuma 2023-0 Yes [id number] 30mg inject 1 [facility] (FASENRA 1-24 Pen under ity of PEN) 30 00:00: the skin [place] mg/mL AtIn 00 every 8 [facility] (eight) Branch weeks. benralizuma 2023-0 Yes [id number] 30mg inject 1 [facility] (FASENRA 1-24 Pen under ity of PEN) 30 00:00: the skin [place] mg/mL AtIn 00 every 8 [facility] (eight) Branch weeks. benralizuma 2023-0 Yes [id number] 30mg inject 1 [facility] (FASENRA 1-24 Pen under ity of PEN) 30 00:00: the skin [place] mg/mL AtIn 00 every 8 [facility] (eight) Branch weeks. benralizuma 2023-0 Yes [id number] 30mg inject 1 [facility] (FASENRA 1-24 Pen under ity of PEN) 30 00:00: the skin [place] mg/mL AtIn 00 every 8 Med[facility] l (eight) Branch weeks. benralizuma 2023-0 Yes [id number] 30mg inject 1 [facility] (FASENRA 1-24 Pen under ity of PEN) 30 00:00: the skin [place] mg/mL AtIn 00 every 8 [facility] (eight) Branch weeks. benralizuma 2023-0 Yes [id number] 30mg inject 1 [facility] (FASENRA 1-24 Pen under ity of PEN) 30 00:00: the skin [place] mg/mL AtIn 00 every 8 Med[facility] l (eight) Branch weeks. benralizuma 2023-0 Yes [id number] 30mg inject 1 [facility] (FASENRA 1-24 Pen under ity of PEN) 30 00:00: the skin [place] mg/mL AtIn 00 every 8 [facility] (eight) Branch weeks. benralizuma 2023-0 Yes [id number] 30mg inject 1 [facility] (FASENRA 1-24 Pen under ity of PEN) 30 00:00: the skin [place] mg/mL AtIn 00 every 8 Medica l (eight) Branch weeks. benralizuma 3-0 Yes [id number] 30mg inject 1 [facility] (FASENRA 1-24 Pen under ity of PEN) 30 00:00: the skin [place] mg/mL AtIn 00 every 8 Medica l (eight) Branch weeks. benralizuma 3-0 Yes [id number] 30mg inject 1 [facility] (FASENRA 1-24 Pen under ity of PEN) 30 00:00: the skin [place] mg/mL AtIn 00 every 8 Medica l (eight) Branch weeks. benralizuma 3-0 Yes [id number] 30mg inject 1 [facility] (FASENRA 1-24 Pen under ity of PEN) 30 00:00: the skin [place] mg/mL AtIn 00 every 8 Medica l (eight) Branch weeks. benralizuma 3-0 Yes [id number] 30mg inject 1 [facility] (FASENRA 1-24 Pen under ity of PEN) 30 00:00: the skin [place] mg/mL AtIn 00 every 8 Medica l (eight) Branch weeks. benralizuma 3-0 Yes [id number] 30mg inject 1 [facility] (FASENRA 1-24 Pen under ity of PEN) 30 00:00: the skin [place] mg/mL AtIn 00 every 8 Medica l (eight) Branch weeks. benralizuma 3-0 Yes [id number] 30mg inject 1 [facility] (FASENRA 1-24 Pen under ity of PEN) 30 00:00: the skin [place] mg/mL AtIn 00 every 8 Med[facility] (eight) Branch weeks. benralizuma 2023-0 Yes [id number] 30mg inject 1 [facility] (FASENRA 1-24 Pen under ity of PEN) 30 00:00: the skin [place] mg/mL AtIn 00 every 8 Med[facility] (eight) Branch weeks. benralizuma 2023-0 Yes [id number] 30mg inject 1 [facility] (FASENRA 1-24 Pen under ity of PEN) 30 00:00: the skin [place] mg/mL AtIn 00 every 8 Medica [facility] (eight) Branch weeks. benralizuma 2023-0 Yes [id number] 30mg inject 1 [facility] (FASENRA 1-24 Pen under ity of PEN) 30 00:00: the skin [place] mg/mL AtIn 00 every 8 Medica l (eight) Branch weeks. benralizuma 3-0 Yes [id number] 30mg inject 1 [facility] (FASENRA 1-24 Pen under ity of PEN) 30 00:00: the skin [place] mg/mL AtIn 00 every 8 Medica l (eight) Branch weeks. benralizuma 2022-0 Yes [id number] 30mg inject 1 [facility] (FASENRA 1-24 Pen under ity of PEN) 30 00:00: the skin [place] mg/mL AtIn 00 every 8 Medica l (eight) Branch weeks. benralizuma 2022-0 Yes [id number] 30mg inject 1 [facility] (FASENRA 1-24 Pen under ity of PEN) 30 00:00: the skin [place] mg/mL AtIn 00 every 8 Medica l (eight) Branch weeks. benralizuma 2022-0 2022- No [id number] 30mg inject 1 [facility] (FASENRA 1-24 08-08 Pen under ity of PEN) 30 00:00: 00:00 the skin [place] mg/mL AtIn 00 :00 every 8 [facility] (eight) Branch weeks. benralizuma 2022-0 3- No [id number] 30mg inject 1 [facility] (FASENRA 1-24 08-08 Pen under ity of PEN) 30 00:00: 00:00 the skin [place] mg/mL AtIn 00 :00 every 8 Med[facility] l (eight) Branch weeks. benralizuma 2022-0 3- No [id number] 30mg inject 1 [facility] (FASENRA 1-24 08-08 Pen under ity of PEN) 30 00:00: 00:00 the skin [place] mg/mL AtIn 00 :00 every 8 Medica l (eight) Branch weeks. VRAYLAR 3 2022-0 Yes 3mg Take 3 mg [facility] mg Cap 1-07 by mouth ity of 00:00: at [place] 00 bedtime. Medical Branch VRAYLAR 3 2022-0 Yes 3mg Take 3 mg [facility] mg Cap 1-07 by mouth ity of 00:00: at [place] [address] bedtime. Medical Branch VRAYLAR 3 0 Yes 3mg Take 3 mg [facility] mg Cap 1-07 by mouth ity of 00:00: at [place] [address] bedtime. Medical Branch VRAYLAR 3 0 Yes 3mg Take 3 mg [facility] mg Cap 1-07 by mouth ity of 00:00: at [place] [address] bedtime. Medical Branch VRAYLAR 3 0 Yes 3mg Take 3 mg [facility] mg Cap 1-07 by mouth ity of 00:00: at [place] [address] bedtime. Medical Branch VRAYLAR 3 0 Yes 3mg Take 3 mg [facility] mg Cap 1-07 by mouth ity of 00:00: at [place] [address] bedtime. Medical Branch VRAYLAR 3 Yes 3mg Take 3 mg [facility] mg Cap 1-07 by mouth ity of 00:00: at [place] [address] bedtime. Medical Branch VRAYLAR 3 Yes 3mg Take 3 mg [facility] mg Cap 1-07 by mouth ity of 00:00: at [place] [address] bedtime. Medical Branch VRAYLAR 3 0 Yes 3mg Take 3 mg [facility] mg Cap 1-07 by mouth ity of 00:00: at [place] [address] bedtime. Medical Branch VRAYLAR 3 Yes 3mg Take 3 mg [facility] mg Cap 1-07 by mouth ity of 00:00: at [place] [address] bedtime. Medical Branch VRAYLAR 3 0 Yes 3mg Take 3 mg [facility] mg Cap 1-07 by mouth ity of 00:00: at [place] [address] bedtime. Medical Branch VRAYLAR 3 0 Yes 3mg Take 3 mg [facility] mg Cap 1-07 by mouth ity of 00:00: at [place] [address] bedtime. Medical Branch VRAYLAR 3 0 Yes 3mg Take 3 mg [facility] mg Cap 1-07 by mouth ity of 00:00: at [place] [address] bedtime. Medical Branch VRAYLAR 3 0 Yes 3mg Take 3 mg [facility] mg Cap 1-07 by mouth ity of 00:00: at [place] [address] bedtime. Medical Branch VRAYLAR 3 2023-0 Yes 3mg Take 3 mg [facility] mg Cap 1-07 by mouth ity of 00:00: at [place] [address] bedtime. Medical Branch VRAYLAR 3 0 Yes 3mg Take 3 mg [facility] mg Cap 1-07 by mouth ity of 00:00: at [place] [address] bedtime. Medical Branch VRAYLAR 3 0 Yes 3mg Take 3 mg [facility] mg Cap 1-07 by mouth ity of 00:00: at [place] [address] bedtime. Medical Branch VRAYLAR 3 0 Yes 3mg Take 3 mg [facility] mg Cap 1-07 by mouth ity of 00:00: at [place] [address] bedtime. Medical Branch VRAYLAR 3 0 Yes 3mg Take 3 mg [facility] mg Cap 1-07 by mouth ity of 00:00: at [place] [address] bedtime. Medical Branch VRAYLAR 3 0 Yes 3mg Take 3 mg [facility] mg Cap 1-07 by mouth ity of 00:00: at [place] [address] bedtime. Medical Branch VRAYLAR 3 0 Yes 3mg Take 3 mg [facility] mg Cap 1-07 by mouth ity of 00:00: at [place] [address] bedtime. Medical Branch VRAYLAR 3 0 Yes 3mg Take 3 mg [facility] mg Cap 1-07 by mouth ity of 00:00: at [place] [address] bedtime. Medical Branch VRAYLAR 3 Yes 3mg Take 3 mg [facility] mg Cap 1-07 by mouth ity of 00:00: at [place] [address] bedtime. Medical Branch VRAYLAR 3 0 Yes 3mg Take 3 mg [facility] mg Cap 1-07 by mouth ity of 00:00: at [place] [address] bedtime. Medical Branch VRAYLAR 3 0 Yes 3mg Take 3 mg [facility] mg Cap 1-07 by mouth ity of 00:00: at [place] [address] bedtime. Medical Branch VRAYLAR 3 0 Yes 3mg Take 3 mg [facility] mg Cap 1-07 by mouth ity of 00:00: at [place] [address] bedtime. Medical Branch VRAYLAR 3 0 Yes 3mg Take 3 mg [facility] mg Cap 1-07 by mouth ity of 00:00: at [place] [address] bedtime. Medical Branch VRAYLAR 3 0 Yes 3mg Take 3 mg [facility] mg Cap 1-07 by mouth ity of 00:00: at [place] [address] bedtime. Medical Branch VRAYLAR 3 0 Yes 3mg Take 3 mg [facility] mg Cap 1-07 by mouth ity of 00:00: at [place] [address] bedtime. Medical Branch VRAYLAR 3 0 Yes 3mg Take 3 mg [facility] mg Cap 1-07 by mouth ity of 00:00: at [place] [address] bedtime. Medical Branch VRAYLAR 3 0 Yes 3mg Take 3 mg [facility] mg Cap 1-07 by mouth ity of 00:00: at [place] [address] bedtime. Medical Branch VRAYLAR 3 0 Yes 3mg Take 3 mg [facility] mg Cap 1-07 by mouth ity of 00:00: at [place] [address] bedtime. Medical Branch VRAYLAR 3 0 Yes 3mg Take 3 mg [facility] mg Cap 1-07 by mouth ity of 00:00: at [place] [address] bedtime. Medical Branch VRAYLAR 3 0 Yes 3mg Take 3 mg [facility] mg Cap 1-07 by mouth ity of 00:00: at [place] [address] bedtime. Medical Branch VRAYLAR 3 0 Yes 3mg Take 3 mg [facility] mg Cap 1-07 by mouth ity of 00:00: at [place] [address] bedtime. Medical Branch VRAYLAR 3 Yes 3mg Take 3 mg [facility] mg Cap 1-07 by mouth ity of 00:00: at [place] [address] bedtime. Medical Branch VRAYLAR 3 0 Yes 3mg Take 3 mg [facility] mg Cap 1-07 by mouth ity of 00:00: at [place] [address] bedtime. Medical Branch VRAYLAR 3 0 Yes 3mg Take 3 mg [facility] mg Cap 1-07 by mouth ity of 00:00: at [place] [address] bedtime. Medical Branch VRAYLAR 3 0 Yes 3mg Take 3 mg [facility] mg Cap 1-07 by mouth ity of 00:00: at [place] [address] bedtime. Medical Branch VRAYLAR 3 0 Yes 3mg Take 3 mg [facility] mg Cap 1-07 by mouth ity of 00:00: at [place] [address] bedtime. Medical Branch VRAYLAR 3 2022-0 Yes 3mg Take 3 mg [facility] mg Cap 1-07 by mouth ity of 00:00: at [place] [address] bedtime. Medical Branch VRAYLAR 3 2022-0 Yes 3mg Take 3 mg [facility] mg Cap 1-07 by mouth ity of 00:00: at [place] [address] bedtime. Medical Branch VRAYLAR 3 2022-0 Yes 3mg Take 3 mg [facility] mg Cap 1-07 by mouth ity of 00:00: at [place] [address] bedtime. Medical Branch VRAYLAR 3 2022-0 Yes 3mg Take 3 mg [facility] mg Cap 1-07 by mouth ity of 00:00: at [place] [address] bedtime. Medical Branch VRAYLAR 3 2022-0 Yes 3mg Take 3 mg [facility] mg Cap 1-07 by mouth ity of 00:00: at [place] [address] bedtime. Medical Branch VRAYLAR 3 2022-0 Yes 3mg Take 3 mg [facility] mg Cap 1-07 by mouth ity of 00:00: at [place] [address] bedtime. Medical Branch VRAYLAR 3 2022-0 Yes 3mg Take 3 mg [facility] mg Cap 1-07 by mouth ity of 00:00: at [place] [address] bedtime. Medical Branch VRAYLAR 3 2022-0 Yes 3mg Take 3 mg [facility] mg Cap 1-07 by mouth ity of 00:00: at [place] [address] bedtime. Medical Branch VRAYLAR 3 2022-0 Yes 3mg Take 3 mg [facility] mg Cap 1-07 by mouth ity of 00:00: at [place] [address] bedtime. Medical Branch VRAYLAR 3 2022-0 Yes 3mg Take 3 mg [facility] mg Cap 1-07 by mouth ity of 00:00: at [place] [address] bedtime. Medical Branch VRAYLAR 3 2022-0 Yes 3mg Take 3 mg [facility] mg Cap 1-07 by mouth ity of 00:00: at [place] [address] bedtime. Medical Branch VRAYLAR 3 2022-0 Yes 3mg Take 3 mg [facility] mg Cap 1-07 by mouth ity of 00:00: at [place] [address] bedtime. Medical Branch VRAYLAR 3 2022-0 Yes 3mg Take 3 mg [facility] mg Cap 1-07 by mouth ity of 00:00: at [place] [address] bedtime. Medical Branch VRAYLAR 3 2022-0 Yes 3mg Take 3 mg [facility] mg Cap 1-07 by mouth ity of 00:00: at [place] [address] bedtime. Medical Branch VRAYLAR 3 2022-0 Yes 3mg Take 3 mg [facility] mg Cap 1-07 by mouth ity of 00:00: at [place] [address] bedtime. Medical Branch VRAYLAR 3 2022-0 Yes 3mg Take 3 mg [facility] mg Cap 1-07 by mouth ity of 00:00: at [place] [address] bedtime. Medical Branch VRAYLAR 3 2022-0 Yes 3mg Take 3 mg [facility] mg Cap 1-07 by mouth ity of 00:00: at [place] [address] bedtime. Medical Branch VRAYLAR 3 0 Yes 3mg Take 3 mg [facility] mg Cap 1-07 by mouth ity of 00:00: at [place] [address] bedtime. Medical Branch VRAYLAR 3 2022-0 Yes 3mg Take 3 mg [facility] mg Cap 1-07 by mouth ity of 00:00: at [place] [address] bedtime. Medical Branch VRAYLAR 3 0 Yes 3mg Take 3 mg [facility] mg Cap 1-07 by mouth ity of 00:00: at [place] [address] bedtime. Medical Branch VRAYLAR 3 0 Yes 3mg Take 3 mg [facility] mg Cap 1-07 by mouth ity of 00:00: at [place] [address] bedtime. Medical Branch VRAYLAR 3 0 Yes 3mg Take 3 mg [facility] mg Cap 1-07 by mouth ity of 00:00: at [place] [address] bedtime. Medical Branch VRAYLAR 3 0 Yes 3mg Take 3 mg [facility] mg Cap 1-07 by mouth ity of 00:00: at [place] [address] bedtime. Medical Branch VRAYLAR 3 0 Yes 3mg Take 3 mg [facility] mg Cap 1-07 by mouth ity of 00:00: at [place] [address] bedtime. Medical Branch VRAYLAR 3 0 Yes 3mg Take 3 mg [facility] mg Cap 1-07 by mouth ity of 00:00: at [place] [address] bedtime. Medical Branch VRAYLAR 3 0 Yes 3mg Take 3 mg [facility] mg Cap 1-07 by mouth ity of 00:00: at [place] [address] bedtime. Medical Branch VRAYMAR 3 Yes 3mg Take 3 mg [facility] mg Cap 1-07 by mouth ity of 00:00: at [place] [address] bedtime. Medical Branch VRAYLAR 3 0 Yes 3mg Take 3 mg [facility] mg Cap 1-07 by mouth ity of 00:00: at [place] [address] bedtime. [facility] Yes 3mg Take 3 mg [facility] mg Cap 1-07 by mouth ity of 00:00: at [place] [address] bedtime. Medical Branch VRAYLAR 3 Yes 3mg Take 3 mg [facility] mg Cap 1-07 by mouth ity of 00:00: at [place] [address] bedtime. [facility] 3 Yes 3mg Take 3 mg [facility] mg Cap 1-07 by mouth ity of 00:00: at [place] [address] bedtime. [facility] 3 2022-0 2022- No 3mg Take 3 mg [place] mg Cap 07-25-05 by mouth ity of 00:00: 00:00 at [place] 00 :00 bedtime. Medical Branch VRAYMAR 3 2022-0 2022- No 3mg Take 3 mg [place] mg Cap 07-25-05 by mouth ity of 00:00: 00:00 at [place] 00 :00 bedtime. [facility] 3 0 2022- No 3mg Take 3 mg [place] mg Cap 07-25-05 by mouth ity of 00:00: 00:00 at [place] 00 :00 bedtime. Medical Branch levalbutero 2021-07 Yes [id number] INHALE 2 [facility] (XOPENEX 2-29 PUFFS BY ity o f HFA) 45 00:00: MOUTH [place] mcg/actuati 00 EVERY 6 Medic al on inhaler HOURS Branc h NEEDED BEFORE EXERCISE OR FOR WHEEZING/S HORTNESS OF BREATH. levalbutero 2021-07 Yes [id number] INHALE 2 [facility] (XOPENEX 2-29 PUFFS BY ity o f HFA) 45 00:00: MOUTH [place] mcg/actuati 00 EVERY 6 Medic al on inhaler HOURS Branc h NEEDED BEFORE EXERCISE OR FOR WHEEZING/S HORTNESS OF BREATH. levalbutero 2021-07 Yes [id number] INHALE 2 [facility] (XOPENEX 2-29 PUFFS BY ity o f HFA) 45 00:00: MOUTH [place] mcg/actuati 00 EVERY 6 Medic al on inhaler HOURS Branc h NEEDED BEFORE EXERCISE OR FOR WHEEZING/S HORTNESS OF BREATH. levalbutero 2021-07 Yes [id number] INHALE 2 [facility] (XOPENEX 2-29 PUFFS BY ity o f HFA) 45 00:00: MOUTH [place] mcg/actuati 00 EVERY 6 Medic al on inhaler HOURS Branc h NEEDED BEFORE EXERCISE OR FOR WHEEZING/S HORTNESS OF BREATH. levalbutero 2021-07 Yes [id number] INHALE 2 [facility] (XOPENEX 2-29 PUFFS BY ity o f HFA) 45 00:00: MOUTH [place] mcg/actuati 00 EVERY 6 Medic al on inhaler HOURS Branc h NEEDED BEFORE EXERCISE OR FOR WHEEZING/S HORTNESS OF BREATH. levalbutero 2021-07 Yes [id number] INHALE 2 [facility] (XOPENEX 2-29 PUFFS BY ity o f HFA) 45 00:00: MOUTH [place] mcg/actuati 00 EVERY 6 Medic al on inhaler HOURS Branc h NEEDED BEFORE EXERCISE OR FOR WHEEZING/S HORTNESS OF BREATH. levalbutero 2021-07 Yes [id number] INHALE 2 [facility] (XOPENEX 2-29 PUFFS BY ity o f HFA) 45 00:00: MOUTH [place] mcg/actuati 00 EVERY 6 Medic al on inhaler HOURS Branc h NEEDED BEFORE EXERCISE OR FOR WHEEZING/S HORTNESS OF BREATH. levalbutero 2021-07 Yes [id number] INHALE 2 [facility] (XOPENEX 2-29 PUFFS BY ity o f HFA) 45 00:00: MOUTH [place] mcg/actuati 00 EVERY 6 Medic al on inhaler HOURS Branc h NEEDED BEFORE EXERCISE OR FOR WHEEZING/S HORTNESS OF BREATH. levalbutero 2021-07 Yes [id number] INHALE 2 [facility] (XOPENEX 2-29 PUFFS BY ity o f HFA) 45 00:00: MOUTH [place] mcg/actuati 00 EVERY 6 Medic al on inhaler HOURS Branc h NEEDED BEFORE EXERCISE OR FOR WHEEZING/S HORTNESS OF BREATH. levalbutero 2021-07 Yes [id number] INHALE 2 [facility] (XOPENEX 2-29 PUFFS BY ity o f HFA) 45 00:00: MOUTH [place] mcg/actuati 00 EVERY 6 Medic al on inhaler HOURS Branc h NEEDED BEFORE EXERCISE OR FOR WHEEZING/S HORTNESS OF BREATH. levalbutero 2021-07- No [id number] INHALE 2 [facility] (XOPENEX 2-29 -31 PUFFS BY ity of HFA) 45 00:00: 00:00 MOUTH [place] mcg/actuati 00 :00 EVERY 6 Medic al on inhaler HOURS Branc h NEEDED BEFORE EXERCISE OR FOR WHEEZING/S HORTNESS OF BREATH. levalbutero 2021-07- No [id number] INHALE 2 [facility] (XOPENEX 2-29 - PUFFS BY ity of HFA) 45 00:00: 00:00 MOUTH [place] mcg/actuati 00 :00 EVERY 6 Medic al on inhaler HOURS Branc h NEEDED BEFORE EXERCISE OR FOR WHEEZING/S HORTNESS OF BREATH. levalbutero 2021-07- No [id number] INHALE 2 [facility] (XOPENEX 208-18 PUFFS BY ity of HFA) 45 00:00: 00:00 MOUTH [place] mcg/actuati 00 :00 EVERY 6 Medic al on inhaler HOURS Branc h NEEDED BEFORE EXERCISE OR FOR WHEEZING/S HORTNESS OF BREATH. ibuprofen 2021-07 Yes [id number] 800mg Take 1 [facility] 800 mg 2-25 tablet by ity of tablet 00:00: mouth [place] 00 every 8 Medical (eight) Branch hours as needed for Pain (scale 4-6) or Temp > 38.5 C. benzonatate 2021-07 Yes [id number] 200mg Take 1 [facility] 200 mg 2-25 capsule by ity of capsule 00:00: mouth 3 [place] 00 (three) Medical times Branch daily as needed for Cough. ibuprofen 2021-07 Yes [id number] 800mg Take 1 [facility] 800 mg 2-25 tablet by ity of tablet 00:00: mouth [place] 00 every 8 Medical (eight) Branch hours as needed for Pain (scale 4-6) or Temp > 38.5 C. benzonatate 2021-07 Yes [id number] 200mg Take 1 [facility] 200 mg 2-25 capsule by [facility] capsule 00:00: mouth 3 (three) Medical times Branch daily as needed for Cough. ibuprofen 2021-07 Yes [id number] 800mg Take 1 [facility] 800 mg 2-25 tablet by [facility] tablet 00:00: mouth [place] 00 every 8 Medical (eight) Branch hours as needed for Pain (scale 4-6) or Temp > 38.5 C. benzonatate 2021-07 Yes [id number] 200mg Take 1 [facility] 200 mg 2-25 capsule by [facility] capsule 00:00: mouth (three) Medical times Branch daily as needed for Cough. ibuprofen 2021-07 Yes [id number] 800mg Take 1 [facility] 800 mg 2-25 tablet by [facility] tablet 00:00: mouth [place] 00 every 8 Medical (eight) Branch hours as needed for Pain (scale 4-6) or Temp > 38.5 C. benzonatate 2021-07 Yes [id number] 200mg Take 1 [facility] 200 mg 2-25 capsule by [facility] capsule 00:00: mouth (three) Medical times Branch daily as needed for Cough. ibuprofen 2021-07 Yes [id number] 800mg Take 1 [facility] 800 mg 2-25 tablet by [facility] of tablet 00:00: mouth [place] 00 every 8 Medical (eight) Branch hours as needed for Pain (scale 4-6) or Temp > 38.5 C. benzonatate 2021-07 Yes [id number] 200mg Take 1 [facility] 200 mg 2-25 capsule by [facility]y of capsule 00:00: mouth 3 (three) Medical times Branch daily as needed for Cough. ibuprofen 2021-07 Yes [id number] 800mg Take 1 [facility] 800 mg 2-25 tablet by ity of tablet 00:00: mouth [place] 00 every 8 Medical (eight) Branch hours as needed for Pain (scale 4-6) or Temp > 38.5 C. benzonatate 2021-07 Yes [id number] 200mg Take 1 [facility] 200 mg 2-25 capsule by [facility]y of capsule 00:00: mouth 3 (three) Medical times Branch daily as needed for Cough. ibuprofen 2021-07 Yes [id number] 800mg Take 1 [facility] 800 mg 2-25 tablet by ity of tablet 00:00: mouth [place] 00 every 8 Medical (eight) Branch hours as needed for Pain (scale 4-6) or Temp > 38.5 C. benzonatate 2021-07 Yes [id number] 200mg Take 1 [facility] 200 mg 2-25 capsule by ity of capsule 00:00: mouth 3 [place] 00 (three) Medical times Branch daily as needed for Cough. ibuprofen 2021-07 Yes [id number] 800mg Take 1 [facility] 800 mg 2-25 tablet by [facility]y of tablet 00:00: mouth [place] 00 every 8 Medical (eight) Branch hours as needed for Pain (scale 4-6) or Temp > 38.5 C. benzonatate 2021-07 Yes [id number] 200mg Take 1 [facility] 200 mg 2-25 capsule by ity of capsule 00:00: mouth 3 (three) Medical times Branch daily as needed for Cough. ibuprofen 2021-07 Yes [id number] 800mg Take 1 [facility] 800 mg 2-25 tablet by [facility]y of tablet 00:00: mouth [place] 00 every 8 Medical (eight) Branch hours as needed for Pain (scale 4-6) or Temp > 38.5 C. benzonatate 2021-07 Yes [id number] 200mg Take 1 [facility] 200 mg 2-25 capsule by [facility]y of capsule 00:00: mouth 3 (three) Medical times Branch daily as needed for Cough. ibuprofen 2021-07 Yes [id number] 800mg Take 1 [facility] 800 mg 2-25 tablet by ity of tablet 00:00: mouth [place] 00 every 8 Medical (eight) Branch hours as needed for Pain (scale 4-6) or Temp > 38.5 C. benzonatate 2021-07 Yes [id number] 200mg Take 1 [facility] 200 mg 2-25 capsule by ity of capsule 00:00: mouth 3 (three) Medical times Branch daily as needed for Cough. ibuprofen 2021-07 Yes [id number] 800mg Take 1 [facility] 800 mg 2-25 tablet by ity of tablet 00:00: mouth [place] 00 every 8 Medical (eight) Branch hours as needed for Pain (scale 4-6) or Temp > 38.5 C. benzonatate 2021-07 Yes [id number] 200mg Take 1 [facility] 200 mg 2-25 capsule by [facility]y of capsule 00:00: mouth 3 00 (three) Medical times Branch daily as needed for Cough. ibuprofen 2021-07 Yes [id number] 800mg Take 1 [facility] 800 mg 2-25 tablet by ity of tablet 00:00: mouth [place] 00 every 8 Medical (eight) Branch hours as needed for Pain (scale 4-6) or Temp > 38.5 C. benzonatate 2021-07 Yes [id number] 200mg Take 1 [facility] 200 mg 2-25 capsule by ity of capsule 00:00: mouth 3 00 (three) Medical times Branch daily as needed for Cough. ibuprofen 2021-07 Yes [id number] 800mg Take 1 [facility] 800 mg 2-25 tablet by ity of tablet 00:00: mouth [place] 00 every 8 Medical (eight) Branch hours as needed for Pain (scale 4-6) or Temp > 38.5 C. ibuprofen 2021-07 Yes [id number] 800mg Take 1 [facility] 800 mg 2-25 tablet by ity of tablet 00:00: mouth [place] every 8 Medical (eight) Branch hours as needed for Pain (scale 4-6) or Temp > 38.5 C. ibuprofen 2021-07 Yes [id number] 800mg Take 1 [facility] 800 mg 2-25 tablet by ity of tablet 00:00: mouth [place] 00 every 8 Medical (eight) Branch hours as needed for Pain (scale 4-6) or Temp > 38.5 C. ibuprofen 2021-07 Yes [id number] 800mg Take 1 [facility] 800 mg 2-25 tablet by ity of tablet 00:00: mouth [place] 00 every 8 Medical (eight) Branch hours as needed for Pain (scale 4-6) or Temp > 38.5 C. ibuprofen 2021-07 Yes [id number] 800mg Take 1 [facility] 800 mg 2-25 tablet by ity of tablet 00:00: mouth [place] 00 every 8 Medical (eight) Branch hours as needed for Pain (scale 4-6) or Temp > 38.5 C. ibuprofen 2021-07 Yes [id number] 800mg Take 1 [facility] 800 mg 2-25 tablet by ity of tablet 00:00: mouth [place] 00 every 8 Medical (eight) Branch hours as needed for Pain (scale 4-6) or Temp > 38.5 C. ibuprofen 2021-07 Yes [id number] 800mg Take 1 [facility] 800 mg 2-25 tablet by ity of tablet 00:00: mouth [place] 00 every 8 Medical (eight) Branch hours as needed for Pain (scale 4-6) or Temp > 38.5 C. ibuprofen 2021-07 Yes [id number] 800mg Take 1 [facility] 800 mg 2-25 tablet by ity of tablet 00:00: mouth [place] 00 every 8 Medical (eight) Branch hours as needed for Pain (scale 4-6) or Temp > 38.5 C. ibuprofen 2021-07 Yes [id number] 800mg Take 1 [facility] 800 mg 2-25 tablet by ity of tablet 00:00: mouth [place] 00 every 8 Medical (eight) Branch hours as needed for Pain (scale 4-6) or Temp > 38.5 C. ibuprofen 2021-07 Yes [id number] 800mg Take 1 [facility] 800 mg 2-25 tablet by ity of tablet 00:00: mouth [place] 00 every 8 Medical (eight) Branch hours as needed for Pain (scale 4-6) or Temp > 38.5 C. ibuprofen 2021-07 Yes [id number] 800mg Take 1 [facility] 800 mg 2-25 tablet by ity of tablet 00:00: mouth [place] 00 every 8 Medical (eight) Branch hours as needed for Pain (scale 4-6) or Temp > 38.5 C. ibuprofen 2021-07 Yes [id number] 800mg Take 1 [facility] 800 mg 2-25 tablet by ity of tablet 00:00: mouth [place] 00 every 8 Medical (eight) Branch hours as needed for Pain (scale 4-6) or Temp > 38.5 C. ibuprofen 2021-07 Yes [id number] 800mg Take 1 [facility] 800 mg 2-25 tablet by ity of tablet 00:00: mouth [place] 00 every 8 Medical (eight) Branch hours as needed for Pain (scale 4-6) or Temp > 38.5 C. ibuprofen 2021-07 Yes [id number] 800mg Take 1 [facility] 800 mg 2-25 tablet by ity of tablet 00:00: mouth [place] 00 every 8 Medical (eight) Branch hours as needed for Pain (scale 4-6) or Temp > 38.5 C. ibuprofen 2021-07 Yes [id number] 800mg Take 1 [facility] 800 mg 2-25 tablet by ity of tablet 00:00: mouth [place] 00 every 8 Medical (eight) Branch hours as needed for Pain (scale 4-6) or Temp > 38.5 C. ibuprofen 2021-07 Yes [id number] 800mg Take 1 [facility] 800 mg 2-25 tablet by ity of tablet 00:00: mouth [place] 00 every 8 Medical (eight) Branch hours as needed for Pain (scale 4-6) or Temp > 38.5 C. ibuprofen 2021-07 Yes [id number] 800mg Take 1 [facility] 800 mg 2-25 tablet by ity of tablet 00:00: mouth [place] 00 every 8 Medical (eight) Branch hours as needed for Pain (scale 4-6) or Temp > 38.5 C. ibuprofen 2021-07 Yes [id number] 800mg Take 1 [facility] 800 mg 2-25 tablet by ity of tablet 00:00: mouth [place] 00 every 8 Medical (eight) Branch hours as needed for Pain (scale 4-6) or Temp > 38.5 C. ibuprofen 2021-07 Yes [id number] 800mg Take 1 [facility] 800 mg 2-25 tablet by ity of tablet 00:00: mouth [place] 00 every 8 Medical (eight) Branch hours as needed for Pain (scale 4-6) or Temp > 38.5 C. ibuprofen 2021-07 Yes [id number] 800mg Take 1 [facility] 800 mg 2-25 tablet by ity of tablet 00:00: mouth [place] 00 every 8 Medical (eight) Branch hours as needed for Pain (scale 4-6) or Temp > 38.5 C. ibuprofen 2021-07 Yes [id number] 800mg Take 1 [facility] 800 mg 2-25 tablet by ity of tablet 00:00: mouth [place] 00 every 8 Medical (eight) Branch hours as needed for Pain (scale 4-6) or Temp > 38.5 C. ibuprofen 2021-07 Yes [id number] 800mg Take 1 [facility] 800 mg 2-25 tablet by ity of tablet 00:00: mouth [place] 00 every 8 Medical (eight) Branch hours as needed for Pain (scale 4-6) or Temp > 38.5 C. ibuprofen 2021-07 Yes [id number] 800mg Take 1 [facility] 800 mg 2-25 tablet by ity of tablet 00:00: mouth [place] 00 every 8 Medical (eight) Branch hours as needed for Pain (scale 4-6) or Temp > 38.5 C. ibuprofen 2021-07 Yes [id number] 800mg Take 1 [facility] 800 mg 2-25 tablet by ity of tablet 00:00: mouth [place] 00 every 8 Medical (eight) Branch hours as needed for Pain (scale 4-6) or Temp > 38.5 C. ibuprofen 2021-07 Yes [id number] 800mg Take 1 [facility] 800 mg 2-25 tablet by ity of tablet 00:00: mouth [place] 00 every 8 Medical (eight) Branch hours as needed for Pain (scale 4-6) or Temp > 38.5 C. ibuprofen 2021-07 Yes [id number] 800mg Take 1 [facility] 800 mg 2-25 tablet by ity of tablet 00:00: mouth [place] 00 every 8 Medical (eight) Branch hours as needed for Pain (scale 4-6) or Temp > 38.5 C. ibuprofen 2021-07 Yes [id number] 800mg Take 1 [facility] 800 mg 2-25 tablet by ity of tablet 00:00: mouth [place] 00 every 8 Medical (eight) Branch hours as needed for Pain (scale 4-6) or Temp > 38.5 C. ibuprofen 2021-07 Yes [id number] 800mg Take 1 [facility] 800 mg 2-25 tablet by ity of tablet 00:00: mouth [place] 00 every 8 Medical (eight) Branch hours as needed for Pain (scale 4-6) or Temp > 38.5 C. ibuprofen 2021-07 Yes [id number] 800mg Take 1 [facility] 800 mg 2-25 tablet by ity of tablet 00:00: mouth [place] 00 every 8 Medical (eight) Branch hours as needed for Pain (scale 4-6) or Temp > 38.5 C. ibuprofen 2021-07 Yes [id number] 800mg Take 1 [facility] 800 mg 2-25 tablet by ity of tablet 00:00: mouth [place] 00 every 8 Medical (eight) Branch hours as needed for Pain (scale 4-6) or Temp > 38.5 C. ibuprofen 2021-07 Yes [id number] 800mg Take 1 [facility] 800 mg 2-25 tablet by ity of tablet 00:00: mouth [place] 00 every 8 Medical (eight) Branch hours as needed for Pain (scale 4-6) or Temp > 38.5 C. ibuprofen 2021-07 Yes [id number] 800mg Take 1 [facility] 800 mg 2-25 tablet by ity of tablet 00:00: mouth [place] 00 every 8 Medical (eight) Branch hours as needed for Pain (scale 4-6) or Temp > 38.5 C. ibuprofen 2021-07 Yes [id number] 800mg Take 1 [facility] 800 mg 2-25 tablet by ity of tablet 00:00: mouth [place] 00 every 8 Medical (eight) Branch hours as needed for Pain (scale 4-6) or Temp > 38.5 C. ibuprofen 2021-07- No [id number] 800mg Take 1 [facility] 800 mg 2-25 04-11 tablet by ity of tablet 00:00: 00:00 mouth [place] 00 :00 every 8 Medical (eight) Branch hours as needed for Pain (scale 4-6) or Temp > 38.5 C. benzonatate 2021-07- No [id number] 200mg Take 1 [facility] 200 mg 2-25 -31 capsule by ity of capsule 00:00: 00:00 mouth 3 [place] 00 :00 (three) Medical times Branch daily as needed for Cough. benzonatate 2021-07- No [id number] 200mg Take 1 [facility] 200 mg 2-25 -31 capsule by ity of capsule 00:00: 00:00 mouth 3 [place] 00 :00 (three) Medical times Branch daily as needed for Cough. benzonatate 2021-07- No [id number] 200mg Take 1 [facility] 200 mg 2-25 -31 capsule by ity of capsule 00:00: 00:00 mouth 3 [place] 00 :00 (three) Medical times Branch daily as needed for Cough. dexamethaso 2021-07 Yes [id number] 12mg Take 120 [facility] ne 0.1 2-22 mL by ity of mg/mL LOW 00:00: mouth in [place] [facility] 00 the Medical ON solution morning. Bran ch dexamethaso 2021-07 Yes [id number] 12mg Take 120 [facility] ne 0.1 2-22 mL by ity of mg/mL LOW 00:00: mouth [place] [facility] 00 the Medical ON solution morning. Bran ch dexamethaso 2021-07 Yes [id number] 12mg Take 120 [facility] ne 0.1 2-22 mL by ity of mg/mL LOW 00:00: mouth in [place] [facility] 00 the Medical ON solution morning. Volodymyr anderson dexamethaso 2021-07 Yes [id number] 12mg Take 120 [facility] ne 0.1 2-22 mL by ity of mg/mL LOW 00:00: mouth [place] [facility] 00 the Medical ON solution morning. Volodymyr anderson dexamethaso 2021-07 Yes [id number] 12mg Take 120 [facility] ne 0.1 2-22 mL by ity of mg/mL LOW 00:00: mouth [place] [facility] 00 the Medical ON solution morning. Volodymyr and[facility] dexamethaso 2021-07 Yes [id number] 12mg Take 120 [facility] ne 0.1 2-22 mL by ity of mg/mL LOW 00:00: mouth [place] [facility] 00 the Medical ON solution morning. Volodymyr anderson dexamethaso 2021-07 Yes [id number] 12mg Take 120 [facility] ne 0.1 2-22 mL by ity of mg/mL LOW 00:00: mouth [place] [facility] 00 the Medical ON solution morning. Volodymyr anderson dexamethaso 2021-07 Yes [id number] 12mg Take 120 [facility] ne 0.1 2-22 mL by ity of mg/mL LOW 00:00: mouth [place] [facility] 00 the Medical ON solution morning. Volodymyr anderson dexamethaso 2021-07 Yes [id number] 12mg Take 120 [facility] ne 0.1 2-22 mL by ity of mg/mL LOW 00:00: mouth [place] [facility] 00 the Medical ON solution morning. Volodymyr anderson dexamethaso 2021-07 Yes [id number] 12mg Take 120 [facility] ne 0.1 2-22 mL by ity of mg/mL LOW 00:00: mouth [place] [facility] 00 the Medical ON solution morning. Bran ch dexamethaso 2021-07 Yes [id number] 12mg Take 120 [facility] ne 0.1 2-22 mL by ity of mg/mL LOW 00:00: mouth [place] [facility] 00 the Medical ON solution morning. Bran ch dexamethaso 2021-07 Yes [id number] 12mg Take 120 [facility] ne 0.1 2-22 mL by ity of mg/mL LOW 00:00: mouth [place] [facility] 00 the Medical ON solution morning. Bran ch dexamethaso 2021-07 Yes [id number] 12mg Take 120 [facility] ne 0.1 2-22 mL by ity of mg/mL LOW 00:00: mouth [place] [facility] 00 the Medical ON solution morning. Volodymyr anderson dexamethaso 2021-07- No [id number] 12mg Take 120 [facility] ne 0.1 2-22 01-31 mL by ity of mg/mL LOW 00:00: 00:00 mouth in [place] [facility] 00 :00 the Medical ON solution morning. Volodymyr anderson dexamethaso 2021-07- No [id number] 12mg Take 120 [facility] ne 0.1 2-22 01-31 mL by ity of mg/mL LOW 00:00: 00:00 mouth in [place] as [facility] 00 :00 the Medical ON solution morning. Volodymyr ch dexamethaso 2021-07- No [id number] 12mg Take 120 [facility] ne 0.1 2-22 [...] s e (ABILIFY 2-05 Intramuscu ity of [facility]) 09:02: lar route [place] as 300 mg sers 43 once every Me dical month. Branch ARIPiprazol 2021-07 Yes by Univer s e (ABILIFY 2-05 Intramuscu ity of [facility]) 09:02: lar route [place] as 300 mg sers 43 once every Me dical month. Branch ARIPiprazol 2021-07 Yes by Un[facility] s e (ABILIFY 2-05 Intramuscu ity of [facility]) 09:02: lar route [place] as 300 mg sers 43 once every Me dical month. Branch ARIPiprazol 2021-07 Yes by Univer s e (ABILIFY 2-05 Intramuscu ity of [facility]) 09:02: lar route [place] as 300 mg sers 43 once every Me dical month. Branch budesonide- 2021-07 Yes [id number] 2{puff} Inhale 2 [facility] formoteroL 2-05 Puffs in ity o f (SYMBICORT) 00:00: the [place] 160-4.5 00 morning Medical mcg/actuati and 2 Branch on inhaler Puffs in the evening. tiotropium 2021-07 Yes [id number] 1{puff} Inhale 1 [facility] bromide 2-05 Puff ity of (SPIRIVA 00:00: daily. [place] RESPIMAT) 00 Medical 2.5 Branch mcg/actuati on Mist budesonide- 2021-07 Yes [id number] 2{puff} Inhale 2 [facility] formoteroL 2-05 Puffs in ity o f (SYMBICORT) 00:00: the [place] 160-4.5 00 morning Medical mcg/actuati and 2 Branch on inhaler Puffs in the evening. tiotropium 2021-07 Yes [id number] 1{puff} Inhale 1 [facility] bromide 2-05 Puff ity of (SPIRIVA 00:00: daily. [place] RESPIMAT) 00 Medical 2.5 Branch mcg/actuati on Mist budesonide- 2021-07 Yes [id number] 2{puff} Inhale 2 [facility] formoteroL 2-05 Puffs in ity o f (SYMBICORT) 00:00: the [place] 160-4.5 00 morning Medical mcg/actuati and 2 Branch on inhaler Puffs in the evening. tiotropium 2021-07 Yes [id number] 1{puff} Inhale 1 [facility] bromide 2-05 Puff ity of (SPIRIVA 00:00: daily. [place] RESPIMAT) 00 Medical 2.5 Branch mcg/actuati on Mist budesonide- 2021-07 Yes [id number] 2{puff} Inhale 2 [facility] formoteroL 2-05 Puffs in ity o f (SYMBICORT) 00:00: the [place] 160-4.5 00 morning Medical mcg/actuati and 2 Branch on inhaler Puffs in the evening. tiotropium 2021-07 Yes [id number] 1{puff} Inhale 1 [facility] bromide 2-05 Puff ity of (SPIRIVA 00:00: daily. [place] RESPIMAT) 00 Medical 2.5 Branch mcg/actuati on Mist budesonide- 2021-07 Yes [id number] 2{puff} Inhale 2 [facility] formoteroL 2-05 Puffs in ity o f (SYMBICORT) 00:00: the [place] 160-4.5 00 morning Medical mcg/actuati and 2 Branch on inhaler Puffs in the evening. tiotropium 2021-07 Yes [id number] 1{puff} Inhale 1 [facility] bromide 2-05 Puff ity of (SPIRIVA 00:00: daily. [place] RESPIMAT) 00 Medical 2.5 Branch mcg/actuati on Mist budesonide- 2021-07 Yes [id number] 2{puff} Inhale 2 [facility] formoteroL 2-05 Puffs in ity o f (SYMBICORT) 00:00: the [place] 160-4.5 00 morning Medical mcg/actuati and 2 Branch on inhaler Puffs in the evening. tiotropium 2021-07 Yes [id number] 1{puff} Inhale 1 [facility] bromide 2-05 Puff ity of (SPIRIVA 00:00: daily. [place] RESPIMAT) 00 Medical 2.5 Branch mcg/actuati on Mist budesonide- 2021-07 Yes [id number] 2{puff} Inhale 2 [facility] formoteroL 2-05 Puffs in ity o f (SYMBICORT) 00:00: the [place] 160-4.5 00 morning Medical mcg/actuati and 2 Branch on inhaler Puffs in the evening. tiotropium 2021-07 Yes [id number] 1{puff} Inhale 1 [facility] bromide 2-05 Puff ity of (SPIRIVA 00:00: daily. [place] RESPIMAT) 00 Medical 2.5 Branch mcg/actuati on Mist budesonide- 2021-07 Yes [id number] 2{puff} Inhale 2 [facility] formoteroL 2-05 Puffs in ity o f (SYMBICORT) 00:00: the [place] 160-4.5 00 morning Medical mcg/actuati and 2 Branch on inhaler Puffs in the evening. tiotropium 2021-07 Yes [id number] 1{puff} Inhale 1 [facility] bromide 2-05 Puff ity of (SPIRIVA 00:00: daily. [place] RESPIMAT) 00 Medical 2.5 Branch mcg/actuati on Mist budesonide- 2021-07 Yes [id number] 2{puff} Inhale 2 [facility] formoteroL 2-05 Puffs in ity o f (SYMBICORT) 00:00: the [place] 160-4.5 00 morning Medical mcg/actuati and 2 Branch on inhaler Puffs in the evening. tiotropium 2021-07 Yes [id number] 1{puff} Inhale 1 [facility] bromide 2-05 Puff ity of (SPIRIVA 00:00: daily. [place] RESPIMAT) 00 Medical 2.5 Branch mcg/actuati on Mist budesonide- 2021-07 Yes [id number] 2{puff} Inhale 2 [facility] formoteroL 2-05 Puffs in ity o f (SYMBICORT) 00:00: the [place] 160-4.5 00 morning Medical mcg/actuati and 2 Branch on inhaler Puffs in the evening. tiotropium 2021-07 Yes [id number] 1{puff} Inhale 1 [facility] bromide 2-05 Puff ity of (SPIRIVA 00:00: daily. [place] RESPIMAT) 00 Medical 2.5 Branch mcg/actuati on Mist budesonide- 2021-07 Yes [id number] 2{puff} Inhale 2 [facility] formoteroL 2-05 Puffs in ity o f (SYMBICORT) 00:00: the [place] 160-4.5 00 morning Medical mcg/actuati and 2 Branch on inhaler Puffs in the evening. tiotropium 2021-07 Yes [id number] 1{puff} Inhale 1 [facility] bromide 2-05 Puff ity of (SPIRIVA 00:00: daily. [place] RESPIMAT) 00 Medical 2.5 Branch mcg/actuati on Mist budesonide- 2021-07 Yes [id number] 2{puff} Inhale 2 [facility] formoteroL 2-05 Puffs in ity o f (SYMBICORT) 00:00: the [place] 160-4.5 00 morning Medical mcg/actuati and 2 Branch on inhaler Puffs in the evening. tiotropium 2021-07 Yes [id number] 1{puff} Inhale 1 [facility] bromide 2-05 Puff ity of (SPIRIVA 00:00: daily. [place] RESPIMAT) 00 Medical 2.5 Branch mcg/actuati on Mist budesonide- 2021-07 Yes [id number] 2{puff} Inhale 2 [facility] formoteroL 2-05 Puffs in ity o f (SYMBICORT) 00:00: the [place] 160-4.5 00 morning Medical mcg/actuati and 2 Branch on inhaler Puffs in the evening. tiotropium 2021-07 Yes [id number] 1{puff} Inhale 1 [facility] bromide 2-05 Puff ity of (SPIRIVA 00:00: daily. [place] RESPIMAT) 00 Medical 2.5 Branch mcg/actuati on Mist budesonide- 2021-07 Yes [id number] 2{puff} Inhale 2 [facility] formoteroL 2-05 Puffs in ity o f (SYMBICORT) 00:00: the [place] 160-4.5 00 morning Medical mcg/actuati and 2 Branch on inhaler Puffs in the evening. tiotropium 2021-07 Yes [id number] 1{puff} Inhale 1 [facility] bromide 2-05 Puff ity of (SPIRIVA 00:00: daily. [place] RESPIMAT) 00 Medical 2.5 Branch mcg/actuati on Mist budesonide- 2021-07 Yes [id number] 2{puff} Inhale 2 [facility] formoteroL 2-05 Puffs in ity o f (SYMBICORT) 00:00: the [place] 160-4.5 00 morning Medical mcg/actuati and 2 Branch on inhaler Puffs in the evening. tiotropium 2021-07 Yes [id number] 1{puff} Inhale 1 [facility] bromide 2-05 Puff ity of (SPIRIVA 00:00: daily. [place] RESPIMAT) 00 Medical 2.5 Branch mcg/actuati on Mist budesonide- 2021-07 Yes [id number] 2{puff} Inhale 2 [facility] formoteroL 2-05 Puffs in ity o f (SYMBICORT) 00:00: the [place] 160-4.5 00 morning Medical mcg/actuati and 2 Branch on inhaler Puffs in the evening. tiotropium 2021-07 Yes [id number] 1{puff} Inhale 1 [facility] bromide 2-05 Puff ity of (SPIRIVA 00:00: daily. [place] RESPIMAT) 00 Medical 2.5 Branch mcg/actuati on Mist budesonide- 2021-07 Yes [id number] 2{puff} Inhale 2 [facility] formoteroL 2-05 Puffs in ity o f (SYMBICORT) 00:00: the [place] 160-4.5 00 morning Medical mcg/actuati and 2 Branch on inhaler Puffs in the evening. tiotropium 2021-07 Yes [id number] 1{puff} Inhale 1 [facility] bromide 2-05 Puff ity of (SPIRIVA 00:00: daily. [place] RESPIMAT) 00 Medical 2.5 Branch mcg/actuati on Mist budesonide- 2021-07 Yes [id number] 2{puff} Inhale 2 [facility] formoteroL 2-05 Puffs in ity o f (SYMBICORT) 00:00: the [place] 160-4.5 00 morning Medical mcg/actuati and 2 Branch on inhaler Puffs in the evening. tiotropium 2021-07 Yes [id number] 1{puff} Inhale 1 [facility] bromide 2-05 Puff ity of (SPIRIVA 00:00: daily. [place] RESPIMAT) 00 Medical 2.5 Branch mcg/actuati on Mist budesonide- 2021-07 Yes [id number] 2{puff} Inhale 2 [facility] formoteroL 2-05 Puffs in ity o f (SYMBICORT) 00:00: the [place] 160-4.5 00 morning Medical mcg/actuati and 2 Branch on inhaler Puffs in the evening. tiotropium 2021-07 Yes [id number] 1{puff} Inhale 1 [facility] bromide 2-05 Puff ity of (SPIRIVA 00:00: daily. [place] RESPIMAT) 00 Medical 2.5 Branch mcg/actuati on [place] methocarbam 2021-07 Yes TAKE 1 Univ ers oL 750 mg 2-05 TABLET BY ity o f tablet 00:00: MOUTH [place] 00 EVERY DAY Medical NEEDED Branch budesonide- 2021-07 Yes [id number] 2{puff} Inhale 2 [facility] formoteroL 2-05 Puffs in ity o f (SYMBICORT) 00:00: the [place] 160-4.5 00 morning Medical mcg/actuati and 2 Branch on inhaler Puffs in the evening. tiotropium 2021-07 Yes [id number] 1{puff} Inhale 1 [facility] bromide 2-05 Puff ity of (SPIRIVA 00:00: daily. [place] RESPIMAT) 00 Medical 2.5 Branch mcg/actuati on [place] methocarbam 2021-07 Yes TAKE 1 Univ ers oL 750 mg 2-05 TABLET BY ity o f tablet 00:00: MOUTH [place] 00 EVERY DAY Medical NEEDED Branch budesonide- 2021-07 Yes [id number] 2{puff} Inhale 2 [facility] formoteroL 2-05 Puffs in ity o f (SYMBICORT) 00:00: the [place] 160-4.5 00 morning Medical mcg/actuati and 2 Branch on inhaler Puffs in the evening. tiotropium 2021-07 Yes [id number] 1{puff} Inhale 1 [facility] bromide 2-05 Puff ity of (SPIRIVA 00:00: daily. [place] RESPIMAT) 00 Medical 2.5 Branch mcg/actuati on [place] methocarbam 2021-07 Yes TAKE 1 Univ ers oL 750 mg 2-05 TABLET BY ity o f tablet 00:00: MOUTH [place] 00 EVERY DAY Medical NEEDED Branch budesonide- 2021-07 Yes [id number] 2{puff} Inhale 2 [facility] formoteroL 2-05 Puffs in ity o f (SYMBICORT) 00:00: the [place] 160-4.5 00 morning Medical mcg/actuati and 2 Branch on inhaler Puffs in the evening. tiotropium 2021-07 Yes [id number] 1{puff} Inhale 1 [facility] bromide 2-05 Puff ity of (SPIRIVA 00:00: daily. [place] RESPIMAT) 00 Medical 2.5 Branch mcg/actuati on [place] methocarbam 2021-07 Yes TAKE 1 Univ ers oL 750 mg 2-05 TABLET BY ity o f tablet 00:00: MOUTH [place] 00 EVERY DAY Medical NEEDED Branch budesonide- 2021-07 Yes [id number] 2{puff} Inhale 2 [facility] formoteroL 2-05 Puffs in ity o f (SYMBICORT) 00:00: the [place] 160-4.5 00 morning Medical mcg/actuati and 2 Branch on inhaler Puffs in the evening. tiotropium 2021-07 Yes [id number] 1{puff} Inhale 1 [facility] bromide 2-05 Puff ity of (SPIRIVA 00:00: daily. [place] RESPIMAT) 00 Medical 2.5 Branch mcg/actuati on Mist budesonide- 2021-07 Yes [id number] 2{puff} Inhale 2 [facility] formoteroL 2-05 Puffs in ity o f (SYMBICORT) 00:00: the [place] 160-4.5 00 morning Medical mcg/actuati and 2 Branch on inhaler Puffs in the evening. tiotropium 2021-07 Yes [id number] 1{puff} Inhale 1 [facility] bromide 2-05 Puff ity of (SPIRIVA 00:00: daily. [place] RESPIMAT) 00 Medical 2.5 Branch mcg/actuati on Mist budesonide- 2021-07 Yes [id number] 2{puff} Inhale 2 [facility] formoteroL 2-05 Puffs in ity o f (SYMBICORT) 00:00: the [place] 160-4.5 00 morning Medical mcg/actuati and 2 Branch on inhaler Puffs in the evening. tiotropium 2021-07 Yes [id number] 1{puff} Inhale 1 [facility] bromide 2-05 Puff ity of (SPIRIVA 00:00: daily. [place] RESPIMAT) 00 Medical 2.5 Branch mcg/actuati on Mist budesonide- 2021-07 Yes [id number] 2{puff} Inhale 2 [facility] formoteroL 2-05 Puffs in ity o f (SYMBICORT) 00:00: the [place] 160-4.5 00 morning Medical mcg/actuati and 2 Branch on inhaler Puffs in the evening. tiotropium 2021-07 Yes [id number] 1{puff} Inhale 1 [facility] bromide 2-05 Puff ity of (SPIRIVA 00:00: daily. [place] RESPIMAT) 00 Medical 2.5 Branch mcg/actuati on Mist methocarbam 2021-07 Yes TAKE 1 Univ ers oL 750 mg 2-05 TABLET BY ity o f tablet 00:00: MOUTH [place] 00 EVERY DAY Medical NEEDED Branch budesonide- 2021-07 Yes [id number] 2{puff} Inhale 2 [facility] formoteroL 2-05 Puffs in ity o f (SYMBICORT) 00:00: the [place] 160-4.5 00 morning Medical mcg/actuati and 2 Branch on inhaler Puffs in the evening. tiotropium 2021-07 Yes [id number] 1{puff} Inhale 1 [facility] bromide 2-05 Puff ity of (SPIRIVA 00:00: daily. [place] RESPIMAT) 00 Medical 2.5 Branch mcg/actuati on Mist methocarbam 2021-07 Yes TAKE 1 [facility] ers oL 750 mg 2-05 TABLET BY ity o f tablet 00:00: MOUTH [place] 00 EVERY DAY Medical NEEDED Branch budesonide- 2021-07 Yes [id number] 2{puff} Inhale 2 [facility] formoteroL 2-05 Puffs in ity o f (SYMBICORT) 00:00: the [place] 160-4.5 00 morning Medical mcg/actuati and 2 Branch on inhaler Puffs in the evening. tiotropium 2021-07 Yes [id number] 1{puff} Inhale 1 [facility] bromide 2-05 Puff ity of (SPIRIVA 00:00: daily. [place] RESPIMAT) 00 Medical 2.5 Branch mcg/actuati on Mist methocarbam 2021-07 Yes TAKE 1 Univ ers oL 750 mg 2-05 TABLET BY ity o f tablet 00:00: MOUTH [place] 00 EVERY DAY Medical NEEDED Branch budesonide- 2021-07 Yes [id number] 2{puff} Inhale 2 [facility] formoteroL 2-05 Puffs in ity o f (SYMBICORT) 00:00: the [place] 160-4.5 00 morning Medical mcg/actuati and 2 Branch on inhaler Puffs in the evening. tiotropium 2021-07 Yes [id number] 1{puff} Inhale 1 [facility] bromide 2-05 Puff ity of (SPIRIVA 00:00: daily. [place] RESPIMAT) 00 Medical 2.5 Branch mcg/actuati on Mist methocarbam 2021-07 Yes TAKE 1 Univ ers oL 750 mg 2-05 TABLET BY ity o f tablet 00:00: MOUTH [place] 00 EVERY DAY Medical NEEDED Branch budesonide- 2021-07 Yes [id number] 2{puff} Inhale 2 [facility] formoteroL 2-05 Puffs in ity o f (SYMBICORT) 00:00: the [place] 160-4.5 00 morning Medical mcg/actuati and 2 Branch on inhaler Puffs in the evening. tiotropium 2021-07 Yes [id number] 1{puff} Inhale 1 [facility] bromide 2-05 Puff ity of (SPIRIVA 00:00: daily. [place] RESPIMAT) 00 Medical 2.5 Branch mcg/actuati on Mist methocarbam 2021-07 Yes TAKE 1 [facility] ers oL 750 mg 2-05 TABLET BY ity o f tablet 00:00: MOUTH [place] 00 EVERY DAY Medical NEEDED Branch budesonide- 2021-07 Yes [id number] 2{puff} Inhale 2 [facility] formoteroL 2-05 Puffs in ity o f (SYMBICORT) 00:00: the [place] 160-4.5 00 morning Medical mcg/actuati and 2 Branch on inhaler Puffs in the evening. tiotropium 2021-07 Yes [id number] 1{puff} Inhale 1 [facility] bromide 2-05 Puff ity of (SPIRIVA 00:00: daily. [place] RESPIMAT) 00 Medical 2.5 Branch mcg/actuati on Mist methocarbam 2021-07 Yes TAKE 1 [facility] ers oL 750 mg 2-05 TABLET BY ity o f tablet 00:00: MOUTH [place] 00 EVERY DAY Medical NEEDED Branch budesonide- 2021-07 Yes [id number] 2{puff} Inhale 2 [facility] formoteroL 2-05 Puffs in ity o f (SYMBICORT) 00:00: the [place] 160-4.5 00 morning Medical mcg/actuati and 2 Branch on inhaler Puffs in the evening. tiotropium 2021-07 Yes [id number] 1{puff} Inhale 1 [facility] bromide 2-05 Puff ity of (SPIRIVA 00:00: daily. [place] RESPIMAT) 00 Medical 2.5 Branch mcg/actuati on [place] methocarbam 2021-07 Yes TAKE 1 [facility] ers oL 750 mg 2-05 TABLET BY ity o f tablet 00:00: MOUTH [place] 00 EVERY DAY Medical NEEDED Branch budesonide- 2021-07 Yes [id number] 2{puff} Inhale 2 [facility] formoteroL 2-05 Puffs in ity o f (SYMBICORT) 00:00: the [place] 160-4.5 00 morning Medical mcg/actuati and 2 Branch on inhaler Puffs in the evening. tiotropium 2021-07 Yes [id number] 1{puff} Inhale 1 [facility] bromide 2-05 Puff ity of (SPIRIVA 00:00: daily. [place] RESPIMAT) 00 Medical 2.5 Branch mcg/actuati on Mist methocarbam 2021-07 Yes TAKE 1 [facility] ers oL 750 mg 2-05 TABLET BY ity o f tablet 00:00: MOUTH [place] 00 EVERY DAY Medical NEEDED Branch budesonide- 2021-07 Yes [id number] 2{puff} Inhale 2 [facility] formoteroL 2-05 Puffs in ity o f (SYMBICORT) 00:00: the [place] 160-4.5 00 morning Medical mcg/actuati and 2 Branch on inhaler Puffs in the evening. tiotropium 2021-07 Yes [id number] 1{puff} Inhale 1 [facility] bromide 2-05 Puff ity of (SPIRIVA 00:00: daily. [place] RESPIMAT) 00 Medical 2.5 Branch mcg/actuati on Mist budesonide- 2021-07 Yes [id number] 2{puff} Inhale 2 [facility] formoteroL 2-05 Puffs in ity o f (SYMBICORT) 00:00: the [place] 160-4.5 00 morning Medical mcg/actuati and 2 Branch on inhaler Puffs in the evening. tiotropium 2021-07 Yes [id number] 1{puff} Inhale 1 [facility] bromide 2-05 Puff ity of (SPIRIVA 00:00: daily. [place] RESPIMAT) 00 Medical 2.5 Branch mcg/actuati on [place] methocarbam 2021-07 Yes TAKE 1 [facility] ers oL 750 mg 2-05 TABLET BY ity o f tablet 00:00: [facility] EVERY DAY Medical NEEDED Branch methocarbam 2021-07 Yes TAKE 1 [facility] ers oL 750 mg 2-05 TABLET BY ity o f tablet 00:00: [facility] 00 EVERY DAY Medical NEEDED Branch methocarbam 2021-07 Yes TAKE 1 [facility] ers oL 750 mg 2-05 TABLET BY ity o f tablet 00:00: [facility] EVERY DAY Medical NEEDED Branch methocarbam 2021-07 Yes TAKE 1 [facility] ers oL 750 mg 2-05 TABLET BY ity o f tablet 00:00: [facility] EVERY DAY Medical NEEDED Branch methocarbam 2021-07 Yes TAKE 1 [facility] ers oL 750 mg 2-05 TABLET BY ity o f tablet 00:00: [facility] EVERY DAY Medical NEEDED Branch methocarbam 2021-07 Yes TAKE 1 [facility] ers oL 750 mg 2-05 TABLET BY ity o f tablet 00:00: [facility] EVERY DAY Medical NEEDED Branch methocarbam 2021-07 Yes TAKE 1 [facility] ers oL 750 mg 2-05 TABLET BY ity o f tablet 00:00: [facility] EVERY DAY Medical NEEDED Branch methocarbam 2021-07 Yes TAKE 1 [facility] ers oL 750 mg 2-05 TABLET BY ity o f tablet 00:00: [facility] 00 EVERY DAY Medical NEEDED Branch methocarbam 2021-07 Yes TAKE 1 [facility] ers oL 750 mg 2-05 TABLET BY ity o f tablet 00:00: [facility] 00 EVERY DAY Medical NEEDED Branch methocarbam 2021-07 Yes TAKE 1 [facility] ers oL 750 mg 2-05 TABLET BY ity o f tablet 00:00: [facility] 00 EVERY DAY Medical NEEDED Branch methocarbam 2021-07 Yes TAKE 1 [facility] ers oL 750 mg 2-05 TABLET BY ity o f tablet 00:00: [facility] 00 EVERY DAY Medical NEEDED Branch [...] BY ity o f tablet 00:00: MOUTH EVERY DAY Medical NEEDED Branch methocarbam 2021-07 [...] BY ity o f tablet 00:00: MOUTH [place] [address] EVERY DAY Medical NEEDED Branch methocarbam 2021-07 Yes TAKE 1 [facility] ers oL 750 mg 2-05 TABLET BY ity o f tablet 00:00: MOUTH [place] [address] EVERY DAY Medical NEEDED Branch methocarbam 2021-07 Yes TAKE 1 [facility] ers oL 750 mg 2-05 TABLET BY ity o f tablet 00:00: MOUTH [place] [address] EVERY DAY Medical NEEDED Branch budesonide- 2021-07- No [id number] 2{puff} Inhale 2 [facility] formoteroL 2-05 03-20 Puffs in ity of (SYMBICORT) 00:00: 00:00 the [place] 160-4.5 00 :00 morning Medical mcg/actuati and 2 Branch on inhaler Puffs in the evening. tiotropium 2021-07- No [id number] 1{puff} Inhale 1 [facility] bromide 2-05 03-20 Puff ity of (SPIRIVA 00:00: 00:00 daily. [place] RESPIMAT) 00 :00 Medical 2.5 Branch mcg/actuati on Mist budesonide- 2021-07- No [id number] 2{puff} Inhale 2 [facility] formoteroL 2-05 03-20 Puffs in ity of (SYMBICORT) 00:00: 00:00 the [place] 160-4.5 00 :00 morning Medical mcg/actuati and 2 Branch on inhaler Puffs in the evening. tiotropium 2021-07- No [id number] 1{puff} Inhale 1 [facility] bromide 2-05 03-20 Puff ity of (SPIRIVA 00:00: 00:00 daily. [place] RESPIMAT) 00 :00 Medical 2.5 Branch mcg/actuati on Mist budesonide- 2021-07- No [id number] 2{puff} Inhale 2 [facility] formoteroL 2-05 03-20 Puffs in ity of (SYMBICORT) 00:00: 00:00 the [place] 160-4.5 00 :00 morning Medical mcg/actuati and 2 Branch on inhaler Puffs in the evening. tiotropium 2021-07- No [id number] 1{puff} Inhale 1 [facility] bromide 2-05 03-20 Puff ity of (SPIRIVA 00:00: 00:00 daily. [place] RESPIMAT) 00 :00 Medical 2.5 Branch mcg/actuati on Mist budesonide- 2021-07- No [id number] 2{puff} Inhale 2 [facility] formoteroL 2-05 03-20 Puffs in ity of (SYMBICORT) 00:00: 00:00 the [place] 160-4.5 00 :00 morning Medical mcg/actuati and 2 Branch on inhaler Puffs in the evening. tiotropium 2021-07- No [id number] 1{puff} Inhale 1 [facility] bromide 2-05 03-20 Puff ity of (SPIRIVA 00:00: 00:00 daily. [place] RESPIMAT) 00 :00 Medical 2.5 Branch mcg/actuati on Mist budesonide- 2021-07- No [id number] 2{puff} Inhale 2 [facility] formoteroL 2-05 03-20 Puffs in ity of (SYMBICORT) 00:00: 00:00 the [place] 160-4.5 00 :00 morning Medical mcg/actuati and 2 Branch on inhaler Puffs in the evening. tiotropium 2021-07- No [id number] 1{puff} Inhale 1 [facility] bromide 2-05 03-20 Puff ity of (SPIRIVA 00:00: 00:00 daily. [place] RESPIMAT) 00 :00 Medical 2.5 Branch mcg/actuati on Mist azithromyci 2021-07 No 500mg 500 mg, IV Univers n [...] 10 mg, Uni vers ne sod phos 206-21 Slow IV ity of PF 08:15: 08:31 Push, [place] injection 00 :00 ONCE, 1 Medical 10 mg dose, On Branch 06/21/22 at 0215, 1 mL ipratropium 2021-07 No 3mL 3 mL, Univ ers -albuteroL 08-22 Inhalation it y of (DUONEB) 06:15: 05:29 , ONCE, 1 [place] 0.5 mg-3 00 :00 dose, On Medical mg(2.5 mg Wed Branch base)/3 mL 06/21/22 at nebulizer 0015, THIERRY solution 3 mL azithromyci 2021-07- No [id number] Take 42 mL Univers n 100 mg/5 08-22-10 by mouth ity of mL 00:00: 05:59 every 24 [place] suspension 00 :00 (twenty-fo Med ical ur) hours Branch AND 21 mL daily. Do all this for 5 days. azithromyci 2021-07- No [id number] Take 42 mL Univers n 100 mg/5 08-22-10 by mouth ity of mL 00:00: 05:59 every 24 [place] suspension 00 :00 (twenty-fo Med ical ur) hours Branch AND 21 mL daily. Do all this for 5 days. azithromyci 2021-07- No [id number] Take 42 mL Univers n 100 mg/5 08-22-10 by mouth ity of mL 00:00: 05:59 every 24 [place] suspension 00 :00 (twenty-fo Med ical ur) hours Branch AND 21 mL daily. Do all this for 5 days. azithromyci 2021-07- No [id number] Take 42 mL Univers n 100 mg/5 08-22-10 by mouth ity of mL 00:00: 05:59 every 24 [place] suspension 00 :00 (twenty-fo Med ical ur) hours Branch AND 21 mL daily. Do all this for 5 days. azithromyci 2021-07- No [id number] Take 42 mL Univers n 100 mg/5 08-22-10 by mouth ity of mL 00:00: 05:59 every 24 [place] suspension 00 :00 (twenty-fo Med ical ur) hours Branch AND 21 mL daily. Do all this for 5 days. azithromyci 2021-07- No [id number] Take 42 mL Univers n 100 mg/5 08-22 by mouth ity of mL 00:00: 05:59 every 24 [place] suspension 00 :00 (twenty-fo Med ical ur) hours Branch AND 21 mL daily. Do all this for 5 days. dexamethaso 2021-07- No [id number] 8mg Take 80 mL Univers ne 0.1 08-22 by mouth ity of mg/mL LOW 00:00: 05:59 once now [place] as CONCENTRATI 00 :00 for 1 Medical ON solution dose. Branch doxycycline 2021-07- No [id number] 100mg Take 20 mL Univers monohydrate 08-22 by mouth ity of 25 mg/5 mL 00:00: 00:00 every 12 [place] oral 00 :00 (twelve) Medical suspension hours. Branch iopamidol 2021-07- No [id number] 75mL 75 mL, Univers (ISOVUE 08-16 Intravenou [...] 00 :00 dose, On Medical mg(2.5 mg Tue Branch base)/3 mL 06/16/22 nebulizer at 1630, solution 6 Routine mL ketorolac 2021-07- No 30mg 30 mg, Unive rs (TORADOL) 08-16 Slow IV ity of injection 21:45: 00:58 Push, [place] 30 mg 00 :00 ONCE, 1 Medical dose, On Branch e 06/16/22 at 1545, Routine codeine-gua 2021-07 No [...] it y of succ 06:00: s, Q6H, [place] (SOLU-MEDRO 00 First dose Me dical L) on Wed Branch injection 05/29/22 125 mg at 0000, Until Discontinu ed, Routine codeine-gua 2021-07 No 20mL 20 mL, Uni vers ifenesin 07-29 Oral, ity of (ROBITUSSIN 04:58: 04:59 ONCE, 1 [place] AC[place] 10-100 00 :00 dose, On Medic al mg/5 mL Maisha Branch oral 05/28/22 solution 20 at 2300, mL THIERRY NaCl 0.9% 2021-07- No 2000mL at 999 Uni vers (NS) IV 07-29 mL/hr, ity of infusion 04:00: 04:59 Intravenou [place] 2,000 mL 00 :00 s, ONCE, 1 Medic al dose, On Branch Maisha 05/28/22 at 2200, THIERRY levoFLOXaci 2021-07 No 750mg 750 mg, IV [...]
Durat ion of therapy: 72 hours iron-multiv Yes 1{tbl} QD Take [address] itamins-min 9-21 tablet by Ignacio reyes 13:21: mouth Medical (THERAGRAN- 51 daily. [facility]) 9 mg iron-400 mcg Tab tablet cariprazine 2021-0 Yes Take by [facility] (Vraylar) 9-21 [facility]. [facility] mg (1)- 13:21: Medica l 3 mg (6) 51 [facility] risperiDONE 2021-0 Yes .25mg Q.5D Take 0.[address] [facility] (RisperDAL) 9-21 mg by [facility] 0.25 MG 13:21: mouth 2 Medical tablet 51 (two) Center times daily. iron-multiv 2-0 Yes 1{tbl} QD Take [address] itamins-min 9-21 tablet by Ignacio es erals 13:21: mouth Medical (THERAGRAN- 51 daily. [facility]) 9 mg iron-400 mcg Tab tablet cariprazine 2021-0 Yes Take by [facility] (Vraylar) 9-21 mouth. [facility] 1.5 mg (1)- 13:21: Medica l 3 mg (6) 51 [facility] risperiDONE 2-0 Yes .25mg Q.5D Take 0.[address] (RisperDAL) 9-21 mg by [facility] 0.25 MG 13:21: mouth 2 Medical tablet 51 (two) Center times daily. iron-multiv 2-0 Yes 1{tbl} QD Take [address] itamins-min 9-21 tablet by Ignacio es erals 13:21: mouth Medical (THERAGRAN- 51 daily. [facility]) 9 mg iron-400 mcg Tab tablet cariprazine 2021-0 Yes Take by [facility] (Vraylar) 9-21 [facility]. [facility] 1.5 mg (1)- 13:21: Medica l 3 mg (6) 51 [facility] risperiDONE 2-0 Yes .25mg Q.5D Take 0.[address] (RisperDAL) 9-21 mg by [facility] 0.25 MG 13:21: mouth 2 Medical tablet 51 (two) Center times daily. iron-multiv 2022-0 Yes 1{tbl} QD Take [address] itamins-min 9-21 tablet by Ignacio es erals 13:21: mouth Medical (THERAGRAN- 51 daily. [facility]) 9 mg iron-400 mcg Tab tablet cariprazine 2022-0 Yes Take by [facility] (Vraylar) 9-21 [facility]. [facility] 1.5 mg (1)- 13:21: Medica l 3 mg (6) 51 [facility] risperiDONE 2-0 Yes .25mg Q.5D Take [...] 13:21: Medica l 3 mg (6) 51 [facility] risperiDONE 2021-0 Yes .25mg Q.5D Take [...] 13:21: Medica l 3 mg (6) 51 [facility] risperiDONE 2-0 Yes .25mg Q.5D Take [...] 13:21: Medica l 3 mg (6) 51 [facility] risperiDONE 2022-0 Yes .25mg Q.5D Take [...] 13:21: Medica l 3 mg (6) 51 [facility] risperiDONE 2-0 Yes .25mg Q.5D Take [...] 13:21: Medica l 3 mg (6) 51 [facility] risperiDONE 2-0 Yes .25mg Q.5D Take 0.[address] (RisperDAL) 9-21 mg by [facility] 0.25 MG 13:21: mouth 2 Medical tablet 51 (two) Center times daily. lactulose 2022-0 Yes 10mL Take 10 [facility] [...] Medic al mg/mL) 00 Center suspension risperiDONE Yes .5mg Q.25D Take 0.5 C [...] Yes 1mL Inject [address] [facility] - mL [facility] 300 mg sers 00:00: intramuscu Medical 00 larly. [place] diazePAM 0 Yes 2mg Q.5D Take 2 [...] capsule 9 by mouth [facility] 00:00: daily. [address] busPIRone 2021-0 Yes 15mg QD Take [address] (BUSPAR) 15 9-09 by mouth Luke s MG tablet 00:00: daily. Medica l [address] [place] [address] 0 Yes 1mL Inject [address] [facility] [facility] 9-09 mL [facility] 300 mg sers 00:00[facility] Yes 2mg Q.5D Take 2 [...] capsule - by mouth [facility] 00:00: daily. [address] busPIRone 2021-0 Yes 15mg QD Take [address] (BUSPAR) 15 9-09 by mouth Luke s MG tablet 00:00: daily. Medica l 00 [facility] 0 Yes 1mL Inject [address] [facility] [facility] 9-09 mL [facility] 300 mg sers 00:00: intramuscu Medical 00 lar. [place] diazePAM 2-0 Yes 2mg Q.5D Take 2 mg [facility] [...] capsule 03-27 by mouth [facility] 00:00: daily. [address] busPIRone 0 Yes 15mg QD Take [address] (BUSPAR) 15 9-09 by mouth Luke s MG tablet 00:00: daily. Medica [address] Yes 1mL Inject [address] [facility] [facility] 9-09 mL [facility] 300 mg sers 00:00: intramuscu [facility] 00 lar. [place] diazePAM 0 Yes 2mg Q.5D Take 2 [...] capsule 03-27 by mouth [facility] 00:00: daily. [address] busPIRone 0 Yes 15mg QD Take [address] (BUSPAR) 15 - by mouth Luke s MG tablet 00:00: daily. Medica [address] Yes 1mL Inject [address] [facility] [address] [facility] 9-09 mL [facility] 300 [facility] [place] diazePAM 2021-0 Yes 2mg Q.5D Take 2 [...] capsule - by mouth [facility] 00:00: daily. [address] busPIRone 2021-0 Yes 15mg QD Take [address] (BUSPAR) 15 9-09 by mouth Luke s MG tablet 00:00: daily. Medica l 00 [facility] 0 Yes 1mL Inject [address] [facility] [facility] 9-09 mL [facility] 300 mg sers 00:00: intramuscu Medical 00 lar. [place] diazePAM 0 Yes 2mg Q.5D Take 2 [...] [address] mg capsule 9- by mouth [facility] 00:00: daily. [address] busPIRone 0 Yes 15mg QD Take [address] (BUSPAR) 15 9-09 by mouth Luke s MG tablet 00:00: daily. Medica l 00 [facility] Yes 1mL Inject [address] [facility] 9-09 mL [facility] 300 mg sers 00:00: intramuscu [facility] 00 lar. [place] diazePAM 2021-0 Yes 2mg Q.5D Take 2 [...] capsule 9-09 by mouth [facility] 00:00: daily. [address] busPIRone 2021-0 Yes 15mg QD Take [address] (BUSPAR) 15 9-09 by mouth Luke s MG tablet 00:00: daily. Medica l 00 [facility] 0 Yes 1mL Inject [address] [facility] 9-09 mL [facility] 300 mg sers 00:00: intramuscu Medical 00 larly. Center diazePAM 0 Yes 2mg Q.5D Take [address] [facility] (VALIUM) 2 03-27 by mouth 2 Ignacoi es MG tablet 00:00: (two) Medical 00 [...] MG tablet 00:00: daily. Medica l 00 [place] Abilify Yes 1mL Inject [address] [facility] 03-27 mL [facility] 300 mg sers 00:00: intramuscu Medical 00 larly. Center diazePAM 0 Yes 2mg Q.5D Take [address] [facility] (VALIUM) 2 03-27 by mouth 2 Ignacio es MG tablet 00:00: (two) Medical 00 times Center daily. Dulera 0 Yes 2{puff} Q.5D [address] [facility] [facility] 200-5 9-08 (two) [facility] mcg/actuati 00:00: times Medic al on inhaler 00 daily. [place] Dulera 0 Yes 2{puff} Q.5D [address] [facility] 200-5 9-08 (two) [facility] mcg/actuati 00:00: times Medic al on inhaler 00 daily. [place] Dulera 0 Yes 2{puff} Q.5D [address] [facility] 200-5 9-08 (two) [facility] mcg/actuati 00:00: times Medic al on inhaler 00 daily. [place] Dulera 0 Yes 2{puff} Q.5D [address] [facility] [facility] 200-5 9-08 (two) [facility] mcg/actuati 00:00: times Medic al on inhaler 00 daily. [place] Dulera 2021-0 Yes 2{puff} Q.5D [address] [facility] 200-5 9-08 (two) [facility] mcg/actuati 00:00: times Medic al on inhaler 00 daily. [place] Dulera Yes 2{puff} Q.5D [address] [facility] 200-5 9-08 (two) [facility] mcg/actuati 00:00: times Medic al on inhaler 00 daily. [facility] Yes 2{puff} Q.5D [address] [facility] 200-5 9-08 (two) [facility] mcg/actuati 00:00: times Medic al on inhaler 00 daily. [facility] Yes 2{puff} Q.5D [address] [facility] 200-5 9-08 (two) [facility] mcg/actuati 00:00: times Medic al on inhaler 00 daily. [facility] Yes 2{puff} Q.5D 2 puffs 2 [facility] [...] Medical mcg/actuati 00 Center on inhaler levalbutero 0 Yes SMARTSIG:V [facility] (XOPENEX 906 ia Inhaler Ignacio es HFA) 45 00:00: Medical mcg/actuati 00 Center on inhaler levalbutero 0 Yes SMARTSIG:V [facility] (XOPENEX 906 ia Inhaler Ignacio es HFA) 45 00:00: Medical mcg/actuati 00 Center on inhaler cetirizine 0 Yes 10mg [...] (s) By Center suspension Mouth Daily AZITHROmyci 2022-[address] n [...] route [place] injection 00 as needed. Medi cehrie Branch EPINEPHrine 2021-0 Yes .3mg 0.3 mL [...] 00 as needed. Medi cherie Branch EPINEPHrine Yes .3mg 0.3 mL by U nivers 0.3 mg/0.3 8-02 Intramuscu ity of mL 00:00: lar route [place] injection 00 as needed. Medi cherie Branch EPINEPHrine Yes .3mg 0.3 mL by U nivers 0.3 mg/0.3 8-02 Intramuscu ity of mL 00:00: lar route [place] injection 00 as needed. Medi cherie Branch EPINEPHrine Yes .3mg 0.3 mL by U nivers 0.3 mg/0.3 8-02 Intramuscu ity of mL 00:00: lar route [place] injection 00 as needed. Medi cherie Branch EPINEPHrine Yes .3mg 0.[address] (EpiPen 8-02 [facility] 2-[place]) 0.3 00:00: Medical mg/0.3 mL 00 [facility] Yes 1{tbl} Take [address] [facility] (Qulipta) 6-15 tablet by [facility] 60 mg Tab 00:00: mouth. Medica l [facility] Yes 1{tbl} Take [address] [facility] (Qulipta) 6-15 tablet by [facility] 60 mg Tab 00:00: mouth. Medica l [facility] Yes 1{tbl} Take [address] [facility] (Qulipta) 6-15 tablet by [facility] 60 mg Tab 00:00: mouth. Medica l [facility] Yes 1{tbl} Take [address] [facility] (Qulipta) 6-15 tablet by [facility] 60 mg Tab 00:00: mouth. Medica l [facility] Yes 1{tbl} Take [address] [facility] [facility] (Qulipta) 6-15 tablet by [facility] 60 mg Tab 00:00: mouth. Medica l [facility] Yes 1{tbl} Take [address] [facility] (Qulipta) 6-15 tablet by [facility] 60 mg Tab 00:00: mouth. Medica l [facility] 2022-0 Yes 1{tbl} Take [address] [facility] (Qulipta) 6-15 tablet by [facility] 60 mg Tab 00:00: mouth. Medica l 00 [facility] Yes 1{tbl} Take [address] [facility] (Qulipta) 6-15 tablet by [facility] 60 mg Tab 00:00: mouth. Medica l 00 [facility] Yes 1{tbl} Take 1 Univ ers (QULIPTA) 6-15 tablet by ity o f 60 mg Tab 00:00: mouth [place] 00 daily. [facility] Yes 1{tbl} Take 1 Univ ers (QULIPTA) 6-15 tablet by ity o f 60 mg Tab 00:00: mouth [place] 00 daily. [facility] Yes 1{tbl} Take 1 Univ ers (QULIPTA) 6-15 tablet by ity o f 60 mg Tab 00:00: mouth [place] 00 daily. [facility] Yes 1{tbl} Take 1 Univ ers (QULIPTA) 6-15 tablet by ity o f 60 mg Tab 00:00: mouth [place] 00 daily. [facility] Yes 1{tbl} Take 1 Univ ers (QULIPTA) 6-15 tablet by ity o f 60 mg Tab 00:00: mouth [place] 00 daily. [facility] Yes 1{tbl} Take 1 Univ ers (QULIPTA) 6-15 tablet by ity o f 60 mg Tab 00:00: mouth [place] 00 daily. [facility] Yes 1{tbl} Take 1 Univ ers (QULIPTA) 6-15 tablet by ity o f 60 mg Tab 00:00: mouth [place] 00 daily. [facility] Yes 1{tbl} Take 1 Univ ers (QULIPTA) 6-15 tablet by ity o f 60 mg Tab 00:00: mouth [place] 00 daily. [facility] Yes 1{tbl} Take 1 Univ ers (QULIPTA) 6-15 tablet by ity o f 60 mg Tab 00:00: mouth [place] 00 daily. [facility] Yes 1{tbl} Take 1 Univ ers (QULIPTA) 6-15 tablet by ity o f 60 mg Tab 00:00: mouth [place] 00 daily. Medical [facility] Yes 1{tbl} Take 1 Univ ers (QULIPTA) 6-15 tablet by ity o f 60 mg Tab 00:00: mouth [place] 00 daily. Medical Branch [facility] Yes 1{tbl} Take 1 Univ ers (QULIPTA) 6-15 tablet by ity o f 60 mg Tab 00:00: mouth [place] 00 daily. Medical Branch [facility] Yes 1{tbl} Take 1 Univ ers (QULIPTA) 6-15 tablet by ity o f 60 mg Tab 00:00: mouth [place] 00 daily. Medical [facility] Yes 1{tbl} Take 1 Univ ers (QULIPTA) 6-15 tablet by ity o f 60 mg Tab 00:00: mouth [place] 00 daily. Medical [facility] Yes 1{tbl} Take 1 Univ ers (QULIPTA) 6-15 tablet by ity o f 60 mg Tab 00:00: mouth [place] 00 daily. Medical [facility] Yes 1{tbl} Take 1 Univ ers (QULIPTA) 6-15 tablet by ity o f 60 mg Tab 00:00: mouth [place] 00 daily. Medical [facility] Yes 1{tbl} Take 1 Univ ers (QULIPTA) 6-15 tablet by ity o f 60 mg Tab 00:00: mouth [place] 00 daily. Medical [facility] Yes 1{tbl} Take 1 Univ ers (QULIPTA) 6-15 tablet by ity o f 60 mg Tab 00:00: mouth [place] 00 daily. Medical [facility] Yes 1{tbl} Take 1 Univ ers (QULIPTA) 6-15 tablet by ity o f 60 mg Tab 00:00: mouth [place] 00 daily. Medical [facility] Yes 1{tbl} Take 1 Univ ers (QULIPTA) 6-15 tablet by ity o f 60 mg Tab 00:00: mouth [place] 00 daily. Medical [facility] Yes 1{tbl} Take 1 Univ ers (QULIPTA) 6-15 tablet by ity o f 60 mg Tab 00:00: mouth [place] 00 daily. Medical [facility] Yes 1{tbl} Take 1 Univ ers (QULIPTA) 6-15 tablet by ity o f 60 mg Tab 00:00: mouth [place] 00 daily. Medical [facility] Yes 1{tbl} Take 1 [facility] (QULIPTA) 6-15 tablet by ity o f 60 mg Tab 00:00: mouth [place] 00 daily. [facility] Yes 1{tbl} Take 1 [facility] (QULIPTA) 6-15 tablet by ity o f 60 mg Tab 00:00: mouth [place] 00 daily. [facility] Yes 1{tbl} Take 1 [facility] (QULIPTA) 6-15 tablet by ity o f 60 mg Tab 00:00: mouth [place] 00 daily. Medical [facility] Yes 1{tbl} Take 1 Univ ers (QULIPTA) 6-15 tablet by ity o f 60 mg Tab 00:00: mouth [place] 00 daily. [facility] Yes 1{tbl} Take 1 [facility] (QULIPTA) 6-15 tablet by ity o f 60 mg Tab 00:00: mouth [place] 00 daily. Medical [facility] Yes 1{tbl} Take 1 [facility] (QULIPTA) 6-15 tablet by ity o f 60 mg Tab 00:00: mouth [place] 00 daily. Medical [facility] Yes 1{tbl} Take 1 [facility] (QULIPTA) 6-15 tablet by ity o f 60 mg Tab 00:00: mouth [place] 00 daily. [facility] Yes 1{tbl} Take 1 [facility] (QULIPTA) 6-15 tablet by ity o f 60 mg Tab 00:00: mouth [place] 00 daily. Medical [facility] Yes 1{tbl} Take 1 [facility] (QULIPTA) 6-15 tablet by ity o f 60 mg Tab 00:00: mouth [place] 00 daily. [facility]} Take 1 [facility] (QULIPTA) 6-15 tablet by ity o f 60 mg Tab 00:00: mouth [place] 00 daily. [facility] Yes 1{tbl} Take 1 [facility] (QULIPTA) 6-15 tablet by ity o f 60 mg Tab 00:00: mouth [place] 00 daily. [facility] Yes 1{tbl} Take 1 [facility] (QULIPTA) 6-15 tablet by ity o f 60 mg Tab 00:00: mouth [place] 00 daily. [facility] Yes 1{tbl} Take 1 [facility] (QULIPTA) 6-15 tablet by ity o f 60 mg Tab 00:00: mouth [place] 00 daily. [facility] Yes 1{tbl} Take 1 [facility] (QULIPTA) 6-15 tablet by ity o f 60 mg Tab 00:00: mouth [place] 00 daily. [facility] Yes 1{tbl} Take 1 [facility] (QULIPTA) 6-15 tablet by ity o f 60 mg Tab 00:00: mouth [place] 00 daily. [facility] Yes 1{tbl} Take 1 [facility] (QULIPTA) 6-15 tablet by ity o f 60 mg Tab 00:00: mouth [place] 00 daily. [facility] Yes 1{tbl} Take 1 [facility] (QULIPTA) 6-15 tablet by ity o f 60 mg Tab 00:00: mouth [place] 00 daily. [facility] Yes 1{tbl} Take 1 [facility] (QULIPTA) 6-15 tablet by ity o f 60 mg Tab 00:00: mouth [place] 00 daily. [facility] Yes 1{tbl} Take 1 [facility] (QULIPTA) 6-15 tablet by ity o f 60 mg Tab 00:00: mouth [place] 00 daily. [facility] Yes 1{tbl} Take 1 [facility] (QULIPTA) 6-15 tablet by ity o f 60 mg Tab 00:00: mouth [place] 00 daily. Medical [facility] Yes 1{tbl} Take 1 [facility] (QULIPTA) 6-15 tablet by ity o f 60 mg Tab 00:00: mouth [place] 00 daily. Medical [facility] Yes 1{tbl} Take 1 [facility] (QULIPTA) 6-15 tablet by ity o f 60 mg Tab 00:00: mouth [place] 00 daily. [facility] Yes 1{tbl} Take 1 [facility] (QULIPTA) 6-15 tablet by ity o f 60 mg Tab 00:00: mouth [place] 00 daily. Medical [facility] Yes 1{tbl} Take 1 [facility] (QULIPTA) 6-15 tablet by ity o f 60 mg Tab 00:00: mouth [place] 00 daily. Medical [facility] Yes 1{tbl} Take 1 [facility] (QULIPTA) 6-15 tablet by ity o f 60 mg Tab 00:00: mouth [place] 00 daily. Medical [facility] Yes 1{tbl} Take 1 [facility] (QULIPTA) 6-15 tablet by ity o f 60 mg Tab 00:00: mouth [place] 00 daily. [facility] Yes 1{tbl} Take 1 [facility] (QULIPTA) 6-15 tablet by ity o f 60 mg Tab 00:00: mouth [place] 00 daily. Medical [facility] Yes 1{tbl} Take 1 [facility] (QULIPTA) 6-15 tablet by ity o f 60 mg Tab 00:00: mouth [place] 00 daily. Medical [facility] Yes 1{tbl} Take 1 [facility] (QULIPTA) 6-15 tablet by ity o f 60 mg Tab 00:00: mouth [place] 00 daily. [facility] Yes 1{tbl} Take 1 [facility] (QULIPTA) 6-15 tablet by ity o f 60 mg Tab 00:00: mouth [place] 00 daily. Medical [facility] Yes 1{tbl} Take 1 [facility] (QULIPTA) 6-15 tablet by ity o f 60 mg Tab 00:00: mouth [place] 00 daily. Medical [facility] Yes 1{tbl} Take 1 [facility] (QULIPTA) 6-15 tablet by ity o f 60 mg Tab 00:00: mouth [place] 00 daily. Medical [facility] Yes 1{tbl} Take 1 [facility] (QULIPTA) 6-15 tablet by ity o f 60 mg Tab 00:00: mouth [place] 00 daily. Medical [facility] Yes 1{tbl} Take 1 [facility] (QULIPTA) 6-15 tablet by ity o f 60 mg Tab 00:00: mouth [place] 00 daily. Medical [facility] Yes 1{tbl} Take 1 [facility] (QULIPTA) 6-15 tablet by ity o f 60 mg Tab 00:00: mouth [place] 00 daily. Medical [facility] Yes 1{tbl} Take 1 [facility] (QULIPTA) 6-15 tablet by ity o f 60 mg Tab 00:00: mouth [place] 00 daily. Medical [facility] Yes 1{tbl} Take 1 [facility] (QULIPTA) 6-15 tablet by ity o f 60 mg Tab 00:00: mouth [place] 00 daily. Medical [facility] Yes 1{tbl} Take 1 [facility] (QULIPTA) 6-15 tablet by ity o f 60 mg Tab 00:00: mouth [place] 00 daily. Medical [facility] Yes 1{tbl} Take 1 [facility] (QULIPTA) 6-15 tablet by ity o f 60 mg Tab 00:00: mouth [place] 00 daily. [facility] Yes 1{tbl} Take 1 [facility] (QULIPTA) 6-15 tablet by ity o f 60 mg Tab 00:00: mouth [place] 00 daily. Medical [facility] Yes 1{tbl} Take 1 [facility] (QULIPTA) 6-15 tablet by ity o f 60 mg Tab 00:00: mouth [place] 00 daily. Medical [facility] Yes 1{tbl} Take 1 [facility] (QULIPTA) 6-15 tablet by ity o f 60 mg Tab 00:00: mouth [place] 00 daily. Medical [facility] Yes 1{tbl} Take 1 [facility] (QULIPTA) 6-15 tablet by ity o f 60 mg Tab 00:00: mouth [place] 00 daily. [facility] Yes 1{tbl} Take 1 [facility] (QULIPTA) 6-15 tablet by ity o f 60 mg Tab 00:00: mouth [place] 00 daily. Medical [facility] Yes 1{tbl} Take 1 [facility] (QULIPTA) 6-15 tablet by ity o f 60 mg Tab 00:00: mouth [place] 00 daily. [facility] Yes 1{tbl} Take 1 [facility] (QULIPTA) 6-15 tablet by ity o f 60 mg Tab 00:00: mouth [place] 00 daily. [facility] Yes 1{tbl} Take 1 [facility] (QULIPTA) 6-15 tablet by ity o f 60 mg Tab 00:00: mouth [place] 00 daily. [facility] Yes 1{tbl} Take 1 [facility] (QULIPTA) 6-15 tablet by ity o f 60 mg Tab 00:00: mouth [place] 00 daily. [facility] Yes 1{tbl} Take 1 [facility] (QULIPTA) 6-15 tablet by ity o f 60 mg Tab 00:00: mouth [place] 00 daily. [facility] Yes 1{tbl} Take 1 [facility] (QULIPTA) 6-15 tablet by ity o f 60 mg Tab 00:00: mouth [place] 00 daily. [facility] Yes 1{tbl} Take 1 [facility] (QULIPTA) 6-15 tablet by ity o f 60 mg Tab 00:00: mouth [place] 00 daily. [facility] Yes 1{tbl} Take 1 [facility] (QULIPTA) 6-15 tablet by ity o f 60 mg Tab 00:00: mouth [place] 00 daily. [facility] Yes 1{tbl} Take 1 [facility] (QULIPTA) 6-15 tablet by ity o f 60 mg Tab 00:00: mouth [place] 00 daily. [facility] Yes 1{tbl} Take 1 [facility] (QULIPTA) 6-15 tablet by ity o f 60 mg Tab 00:00: mouth [place] 00 daily. Medical [facility] Yes 1{tbl} Take 1 [facility] (QULIPTA) 6-15 tablet by ity o f 60 mg Tab 00:00: mouth [place] 00 daily. [facility] Yes 1{tbl} Take 1 [facility] (QULIPTA) 6-15 tablet by ity o f 60 mg Tab 00:00: mouth [place] 00 daily. [facility] Yes 1{tbl} Take 1 [facility] (QULIPTA) 6-15 tablet by ity o f 60 mg Tab 00:00: mouth [place] 00 daily. [facility] Yes 1{tbl} Take 1 [facility] (QULIPTA) 6-15 tablet by ity o f 60 mg Tab 00:00: mouth [place] 00 daily. [facility] Yes 1{tbl} Take 1 [facility] (QULIPTA) 6-15 tablet by ity o f 60 mg Tab 00:00: mouth [place] 00 daily. [facility] Yes 1{tbl} Take 1 [facility] (QULIPTA) 6-15 tablet by ity o f 60 mg Tab 00:00: mouth [place] 00 daily. [facility] Yes 1{tbl} Take 1 [facility] (QULIPTA) 6-15 tablet by ity o f 60 mg Tab 00:00: mouth [place] 00 daily. [facility] Yes 1{tbl} Take 1 [facility] (QULIPTA) 6-15 tablet by ity o f 60 mg Tab 00:00: mouth [place] 00 daily. [facility] Yes 1{tbl} Take 1 [facility] (QULIPTA) 6-15 tablet by ity o f 60 mg Tab 00:00: mouth [place] 00 daily. [facility] Yes 1{tbl} Take 1 [facility] (QULIPTA) 6-15 tablet by ity o f 60 mg Tab 00:00: mouth [place] 00 daily. [facility] Yes 1{tbl} Take 1 [facility] (QULIPTA) 6-15 tablet by ity o f 60 mg Tab 00:00: mouth [place] 00 daily. Medical [facility] Yes 1{tbl} Take 1 [facility] (QULIPTA) 6-15 tablet by ity o f 60 mg Tab 00:00: mouth [place] 00 daily. [facility] Yes 1{tbl} Take 1 [facility] (QULIPTA) 6-15 tablet by ity o f 60 mg Tab 00:00: mouth [place] 00 daily. Medical [facility] Yes 1{tbl} Take 1 [facility] (QULIPTA) 6-15 tablet by ity o f 60 mg Tab 00:00: mouth [place] 00 daily. [facility] Yes 1{tbl} Take 1 [facility] (QULIPTA) 6-15 tablet by ity o f 60 mg Tab 00:00: mouth [place] 00 daily. Medical [facility] Yes 1{tbl} Take 1 [facility] (QULIPTA) 6-15 tablet by ity o f 60 mg Tab 00:00: mouth [place] 00 daily. [facility] Yes 1{tbl} Take 1 [facility] (QULIPTA) 6-15 tablet by ity o f 60 mg Tab 00:00: mouth [place] 00 daily. [facility] Yes 1{tbl} Take 1 [facility] (QULIPTA) 6-15 tablet by ity o f 60 mg Tab 00:00: mouth [place] 00 daily. Medical [facility] Yes 1{tbl} Take 1 [facility] (QULIPTA) 6-15 tablet by ity o f 60 mg Tab 00:00: mouth [place] 00 daily. [facility] Yes 1{tbl} Take 1 [facility] (QULIPTA) 6-15 tablet by ity o f 60 mg Tab 00:00: mouth [place] 00 daily. [facility] Yes 1{tbl} Take 1 [facility] (QULIPTA) 6-15 tablet by ity o f 60 mg Tab 00:00: mouth [place] 00 daily. [facility] Yes 1{tbl} Take 1 [facility] (QULIPTA) 6-15 tablet by ity o f 60 mg Tab 00:00: mouth [place] 00 daily. [facility] Yes 1{tbl} Take 1 [facility] (QULIPTA) 6-15 tablet by ity o f 60 mg Tab 00:00: mouth [place] 00 daily. [facility] Yes 1{tbl} Take 1 [facility] (QULIPTA) 6-15 tablet by ity o f 60 mg Tab 00:00: mouth [place] 00 daily. [facility] Yes 1{tbl} Take 1 [facility] (QULIPTA) 6-15 tablet by ity o f 60 mg Tab 00:00: mouth [place] 00 daily. [facility] Yes 1{tbl} Take 1 [facility] (QULIPTA) 6-15 tablet by ity o f 60 mg Tab 00:00: mouth [place] 00 daily. [facility] Yes 1{tbl} Take 1 [facility] (QULIPTA) 6-15 tablet by ity o f 60 mg Tab 00:00: mouth [place] 00 daily. [facility] Yes 1{tbl} Take 1 [facility] (QULIPTA) 6-15 tablet by ity o f 60 mg Tab 00:00: mouth [place] 00 daily. [facility] Yes 1{tbl} Take 1 [facility] (QULIPTA) 6-15 tablet by ity o f 60 mg Tab 00:00: mouth [place] 00 daily. [facility] Yes 1{tbl} Take 1 [facility] (QULIPTA) 6-15 tablet by ity o f 60 mg Tab 00:00: mouth [place] 00 daily. Medical [facility] Yes 1{tbl} Take 1 [facility] (QULIPTA) 6-15 tablet by ity o f 60 mg Tab 00:00: mouth [place] 00 daily. [facility] Yes 1{tbl} Take 1 [facility] (QULIPTA) 6-15 tablet by ity o f 60 mg Tab 00:00: mouth [place] 00 daily. Medical [facility] Yes 1{tbl} Take 1 [facility] (QULIPTA) 6-15 tablet by ity o f 60 mg Tab 00:00: mouth [place] 00 daily. Medical [facility] Yes 1{tbl} Take 1 [facility] (QULIPTA) 6-15 tablet by ity o f 60 mg Tab 00:00: mouth [place] 00 daily. Medical [facility] Yes 1{tbl} Take 1 [facility] (QULIPTA) 6-15 tablet by ity o f 60 mg Tab 00:00: mouth [place] 00 daily. [facility] Yes 1{tbl} Take 1 [facility] (QULIPTA) 6-15 tablet by ity o f 60 mg Tab 00:00: mouth [place] 00 daily. [facility] Yes 1{tbl} Take 1 [facility] (QULIPTA) 6-15 tablet by ity o f 60 mg Tab 00:00: mouth [place] 00 daily. [facility] Yes 1{tbl} Take 1 [facility] (QULIPTA) 6-15 tablet by ity o f 60 mg Tab 00:00: mouth [place] 00 daily. [facility] Yes 1{tbl} Take 1 [facility] (QULIPTA) 6-15 tablet by ity o f 60 mg Tab 00:00: mouth [place] 00 daily. Medical [facility] Yes 1{tbl} Take 1 [facility] (QULIPTA) 6-15 tablet by ity o f 60 mg Tab 00:00: mouth [place] 00 daily. Medical [facility] Yes 1{tbl} Take 1 [facility] (QULIPTA) 6-15 tablet by ity o f 60 mg Tab 00:00: mouth [place] 00 daily. Medical [facility] Yes 1{tbl} Take 1 [facility] (QULIPTA) 6-15 tablet by ity o f 60 mg Tab 00:00: mouth [place] 00 daily. [facility] Yes 1{tbl} Take 1 [facility] (QULIPTA) 6-15 tablet by ity o f 60 mg Tab 00:00: mouth [place] 00 daily. [facility] Yes 1{tbl} Take 1 [facility] (QULIPTA) 6-15 tablet by ity o f 60 mg Tab 00:00: mouth [place] 00 daily. [facility] Yes 1{tbl} Take 1 [facility] (QULIPTA) 6-15 tablet by ity o f 60 mg Tab 00:00: mouth [place] 00 daily. [facility] Yes 1{tbl} Take 1 [facility] (QULIPTA) 6-15 tablet by ity o f 60 mg Tab 00:00: mouth [place] 00 daily. [facility] Yes 1{tbl} Take 1 [facility] (QULIPTA) 6-15 tablet by ity o f 60 mg Tab 00:00: mouth [place] 00 daily. [facility] Yes 1{tbl} Take 1 [facility] (QULIPTA) 6-15 tablet by ity o f 60 mg Tab 00:00: mouth [place] 00 daily. [facility] Yes 1{tbl} Take 1 [facility] (QULIPTA) 6-15 tablet by ity o f 60 mg Tab 00:00: mouth [place] 00 daily. [facility] Yes 1{tbl} Take 1 [facility] (QULIPTA) 6-15 tablet by ity o f 60 mg Tab 00:00: mouth [place] 00 daily. [facility] Yes 1{tbl} Take 1 [facility] (QULIPTA) 6-15 tablet by ity o f 60 mg Tab 00:00: mouth [place] 00 daily. [facility] Yes 1{tbl} Take 1 [facility] (QULIPTA) 6-15 tablet by ity o f 60 mg Tab 00:00: mouth [place] 00 daily. [facility] Yes 1{tbl} Take 1 [facility] (QULIPTA) 6-15 tablet by ity o f 60 mg Tab 00:00: mouth [place] 00 daily. [facility] Yes 1{tbl} Take 1 [facility] (QULIPTA) 6-15 tablet by ity o f 60 mg Tab 00:00: mouth [place] 00 daily. [facility] Yes 1{tbl} Take 1 [facility] (QULIPTA) 6-15 tablet by ity o f 60 mg Tab 00:00: mouth [place] 00 daily. [facility] Yes 1{tbl} Take 1 [facility] (QULIPTA) 6-15 tablet by ity o f 60 mg Tab 00:00: mouth [place] 00 daily. [facility] Yes 1{tbl} Take 1 [facility] (QULIPTA) 6-15 tablet by [facility]y o f 60 mg Tab 00:00: mouth [place] 00 daily. [facility] Yes 1{tbl} Take [address] [facility] (Qulipta) 6-15 tablet by [facility] Tab 00:00: mouth. Medica l 00 [place] levETIRAcet 0 2022- No 500mg Take [address] [facility] am (KEPPRA) 4-13 04-08 mg by [facility] mg/mL 00:00: 23:59 mouth. Medic al solution 00 :00 [place] levETIRAcet 2021-0 2022- No 500mg Take [address] [facility] am (KEPPRA) 4-13 04-08 mg [facility] mg/mL 00:00: 23:59 mouth. Medic al solution 00 :00 [place] levETIRAcet 2021-0 2022- No 500mg Take [address] [facility] am (KEPPRA) 4-13 04-08 mg [facility] mg/mL 00:00: 23:59 mouth. Medic al solution 00 :00 [place] levETIRAcet 2021-0 3- No 500mg Take [address] [facility] am (KEPPRA) 4-13 04-08 mg [facility] mg/mL 00:00: 23:59 mouth. Medic al solution 00 :00 [place] levETIRAcet 2021-0 3- No 500mg Take [address] [facility] am (KEPPRA) 4-13 04-08 mg [facility] mg/mL 00:00: 23:59 mouth. Medic al solution 00 :00 [facility] levETIRAcet 2021-0 2023- No 500mg Take [address] [facility] am (KEPPRA) 4-13 04-08 [facility] mg/mL 00:00: 23:59 mouth. Medic al solution 00 :00 [place] levETIRAcet 2021-0 2023- No 500mg Take [address] [facility] am (KEPPRA) 4-13 04-08 mg [facility] 100 mg/mL 00:00: 23:59 mouth. Medic al solution 00 :00 Center levETIRAcet 2021-0 2023- No 500mg Take [address] [facility] am (KEPPRA) 4-13 04-08 mg [facility] 100 mg/mL 00:00: 23:59 mouth. Medic al solution 00 :00 [place] levETIRAcet 2021-0 3- No 500mg Take [address] [facility] am (KEPPRA) 4-13 04-08 mg [facility] mg/mL 00:00: 23:59 mouth. Medic al solution 00 :00 [place] SUMAtriptan 2-0 Yes 20mg 20 mg by [...] Center n nasal spray SERTraline 2020-0 Yes [id number] 25mg Take 1 [facility] 25 mg 1-14 tablet by [facility] of tablet 00:00: mouth [place] 00 daily. Medical Branch SERTraline 2020-0 Yes [id number] 25mg Take 1 [facility] 25 mg 1-14 tablet by [facility] of tablet 00:00: mouth [place] 00 daily. Medical Branch SERTraline 2020-0 Yes [id number] 25mg Take 1 [facility] 25 mg 1-14 tablet by [facility] of tablet 00:00: mouth [place] 00 daily. Medical Branch SERTraline 2020-0 Yes [id number] 25mg Take 1 [facility] 25 mg 1-14 tablet by [facility] of tablet 00:00: mouth [place] 00 daily. Medical Branch SERTraline 2020-0 Yes [id number] 25mg Take 1 [facility] 25 mg 1-14 tablet by [facility] of tablet 00:00: mouth [place] 00 daily. Medical Branch SERTraline 2020-0 Yes [id number] 25mg Take 1 [facility] 25 mg 1-14 tablet by [facility] of tablet 00:00: mouth [place] 00 daily. Medical Branch SERTraline 2020-0 Yes [id number] 25mg Take 1 [facility] 25 mg 1-14 tablet by [facility] of tablet 00:00: mouth [place] 00 daily. Medical Branch SERTraline 2020-0 Yes [id number] 25mg Take 1 [facility] 25 mg 1-14 tablet by [facility] of tablet 00:00: mouth [place] 00 daily. Medical Branch SERTraline 2020-0 Yes [id number] 25mg Take 1 [facility] 25 mg 1-14 tablet by [facility] of tablet 00:00: mouth [place] 00 daily. [facility] SERTraline 2020-0 Yes [id number] 25mg Take 1 [facility] 25 mg 1-14 tablet by [facility] of tablet 00:00: mouth [place] 00 daily. [facility] SERTraline 2020-0 Yes [id number] 25mg Take 1 [facility] 25 mg 1-14 tablet by [facility] of tablet 00:00: mouth [place] 00 daily. [facility] SERTraline 2020-0 Yes [id number] 25mg Take 1 [facility] 25 mg 1-14 tablet by [facility] of tablet 00:00: mouth [place] 00 daily. [facility] SERTraline 2019-0 Yes [id number] 25mg Take 1 [facility] 25 mg 1-14 tablet by [facility] of tablet 00:00: mouth [place] 00 daily. [facility] SERTraline 2019-0 Yes [id number] 25mg Take 1 [facility] 25 mg 1-14 tablet by [facility] of tablet 00:00: mouth [place] 00 daily. [facility] SERTraline 2019-0 Yes [id number] 25mg Take 1 [facility] 25 mg 1-14 tablet by [facility] of tablet 00:00: mouth [place] 00 daily. [facility] SERTraline 2019-0 Yes [id number] 25mg Take 1 [facility] 25 mg 1-14 tablet by [facility] of tablet 00:00: mouth [place] 00 daily. [facility] SERTraline 2019-0 Yes [id number] 25mg Take 1 [facility] 25 mg 1-14 tablet by [facility] of tablet 00:00: mouth [place] 00 daily. [facility] SERTraline 2020-0 2021- No [id number] 25mg Take 1 [facility] 25 mg 1-14 12-05 tablet by [facility] of tablet 00:00: 00:00 mouth [place] 00 :00 daily. [facility] SERTraline 2019-0 2021- No [id number] 25mg Take 1 [facility] 25 mg 1-14 12-05 tablet by [facility] of tablet 00:00: 00:00 mouth [place] 00 :00 daily. [facility] SERTraline 2020-0 2021- No [id number] 25mg Take 1 [facility] 25 mg 1-14 12-05 tablet by [facility] of tablet 00:00: 00:00 mouth [place] 00 :00 daily. [facility] busPIRone 2020-0 Yes [id number] 15mg Take 1 [facility] 15 mg 1-13 tablet by [facility] of tablet 00:00: mouth (two) Medical times Branch daily. busPIRone 2020-0 Yes [id number] 15mg Take 1 [facility] 15 mg 1-13 tablet by [facility] of tablet 00:00: mouth (two) Medical times Branch daily. busPIRone 2020-0 Yes [id number] 15mg Take 1 [facility] 15 mg 1-13 tablet by [facility] of tablet 00:00: mouth (two) Medical times Branch daily. busPIRone 2020-0 Yes [id number] 15mg Take 1 [facility] 15 mg 1-13 tablet by [facility] of tablet 00:00: mouth (two) Medical times Branch daily. busPIRone 2020-0 Yes [id number] 15mg Take 1 [facility] 15 mg 1-13 tablet by [facility] of tablet 00:00: mouth (two) Medical times Branch daily. busPIRone 2020-0 Yes [id number] 15mg Take 1 [facility] 15 mg 1-13 tablet by [facility] of tablet 00:00: mouth (two) Medical times Branch daily. busPIRone 2020-0 Yes [id number] 15mg Take 1 [facility] 15 mg 1-13 tablet by [facility] of tablet 00:00: mouth (two) Medical times Branch daily. busPIRone 2020-0 Yes [id number] 15mg Take 1 [facility] 15 mg 1-13 tablet by [facility] of tablet 00:00: mouth (two) Medical times Branch daily. busPIRone 2020-0 Yes [id number] 15mg Take 1 [facility] 15 mg 1-13 tablet by [facility] of tablet 00:00: mouth (two) Medical times Branch daily. busPIRone 2020-0 Yes [id number] 15mg Take 1 [facility] 15 mg 1-13 tablet by [facility] of tablet 00:00: mouth (two) Medical times Branch daily. busPIRone 2020-0 Yes [id number] 15mg Take 1 [facility] 15 mg 1-13 tablet by [facility] of tablet 00:00: mouth (two) Medical times Branch daily. busPIRone 2020-0 Yes [id number] 15mg Take 1 [facility] 15 mg 1-13 tablet by [facility] of tablet 00:00: mouth (two) Medical times Branch daily. busPIRone 2020-0 Yes [id number] 15mg Take 1 [facility] 15 mg 1-13 tablet by [facility] of tablet 00:00: mouth (two) Medical times Branch daily. busPIRone 2020-0 Yes [id number] 15mg Take 1 [facility] 15 mg 1-13 tablet by [facility] of tablet 00:00: mouth (two) Medical times Branch daily. busPIRone 2020-0 Yes [id number] 15mg Take 1 [facility] 15 mg 1-13 tablet by [facility] of tablet 00:00: mouth (two) Medical times Branch daily. busPIRone 2020-0 Yes [id number] 15mg Take 1 [facility] 15 mg 1-13 tablet by [facility] of tablet 00:00: mouth (two) Medical times Branch daily. busPIRone 2020-0 Yes [id number] 15mg Take 1 [facility] 15 mg 1-13 tablet by [facility] of tablet 00:00: mouth (two) Medical times Branch daily. busPIRone 2020-0 Yes [id number] 15mg Take 1 [facility] 15 mg 1-13 tablet by [facility] of tablet 00:00: mouth (two) Medical times Branch daily. busPIRone 2020-0 Yes [id number] 15mg Take 1 [facility] 15 mg 1-13 tablet by [facility] of tablet 00:00: mouth (two) Medical times Branch daily. busPIRone 2020-0 Yes [id number] 15mg Take 1 [facility] 15 mg 1-13 tablet by [facility] of tablet 00:00: mouth (two) Medical times Branch daily. busPIRone 2020-0 Yes [id number] 15mg Take 1 [facility] 15 mg 1-13 tablet by [facility] of tablet 00:00: mouth (two) Medical times Branch daily. busPIRone 2020-0 Yes [id number] 15mg Take 1 [facility] 15 mg 1-13 tablet by [facility] of tablet 00:00: mouth [place] (two) Medical times Branch daily. busPIRone 2020-0 Yes [id number] 15mg Take 1 [facility] 15 mg 1-13 tablet by [facility] of tablet 00:00: mouth (two) Medical times Branch daily. busPIRone 2020-0 Yes [id number] 15mg Take 1 [facility] 15 mg 1-13 tablet by [facility] of tablet 00:00: mouth (two) Medical times Branch daily. busPIRone 2020-0 Yes [id number] 15mg Take 1 [facility] 15 mg 1-13 tablet by [facility] of tablet 00:00: mouth (two) Medical times Branch daily. busPIRone 2020-0 Yes [id number] 15mg Take 1 [facility] 15 mg 1-13 tablet by [facility] of tablet 00:00: mouth (two) Medical times Branch daily. busPIRone 2020-0 Yes [id number] 15mg Take 1 [facility] 15 mg 1-13 tablet by [facility]y of tablet 00:00: mouth (two) [facility] times [facility] daily. busPIRone 2020-0 Yes [id number] 15mg Take 1 [facility] 15 mg 1-13 tablet by [facility] of tablet 00:00: mouth (two) Medical times [facility] daily. busPIRone 2020-0 Yes [id number] 15mg Take 1 [facility] 15 mg 1-13 tablet by [facility] of tablet 00:00: mouth (two) Medical times [facility] daily. busPIRone 2020-0 Yes [id number] 15mg Take 1 [facility] 15 mg 1-13 tablet by [facility] of tablet 00:00: mouth (two) Medical times [facility] daily. busPIRone 2020-0 Yes [id number] 15mg Take 1 [facility] 15 mg 1-13 tablet by [facility] of tablet 00:00: mouth (two) Medical times [facility] daily. busPIRone 2020-0 Yes [id number] 15mg Take 1 [facility] 15 mg 1-13 tablet by [facility] of tablet 00:00: mouth (two) Medical times [facility] daily. busPIRone 2020-0 Yes [id number] 15mg Take 1 [facility] 15 mg 1-13 tablet by [facility] of tablet 00:00: mouth (two) Medical times [facility] daily. busPIRone 2020-0 Yes [id number] 15mg Take 1 [facility] 15 mg 1-13 tablet by [facility] of tablet 00:00: mouth (two) Medical times [facility] daily. busPIRone 2020-0 Yes [id number] 15mg Take 1 [facility] 15 mg 1-13 tablet by [facility] of tablet 00:00: mouth (two) Medical times [facility] daily. busPIRone 2020-0 Yes [id number] 15mg Take 1 [facility] 15 mg 1-13 tablet by [facility] of tablet 00:00: mouth (two) Medical times [facility] daily. busPIRone 2020-0 Yes [id number] 15mg Take 1 [facility] 15 mg 1-13 tablet by [facility] of tablet 00:00: mouth (two) Medical times [facility] daily. busPIRone 2020-0 Yes [id number] 15mg Take 1 [facility] 15 mg 1-13 tablet by [facility] of tablet 00:00: mouth (two) Medical times [facility] daily. busPIRone 2020-0 Yes [id number] 15mg Take 1 [facility] 15 mg 1-13 tablet by [facility] of tablet 00:00: mouth (two) Medical times [facility] daily. busPIRone 2020-0 Yes [id number] 15mg Take 1 [facility] 15 mg 1-13 tablet by [facility] of tablet 00:00: mouth (two) Medical times [facility] daily. busPIRone 2020-0 Yes [id number] 15mg Take 1 [facility] 15 mg 1-13 tablet by [facility] of tablet 00:00: mouth (two) Medical times [facility] daily. busPIRone 2020-0 Yes [id number] 15mg Take 1 [facility] 15 mg 1-13 tablet by [facility] of tablet 00:00: mouth (two) Medical times [facility] daily. busPIRone 2020-0 Yes [id number] 15mg Take 1 [facility] 15 mg 1-13 tablet by [facility] of tablet 00:00: mouth 2 (two) Medical times [facility] daily. busPIRone 2020-0 Yes [id number] 15mg Take 1 [facility] 15 mg 1-13 tablet by [facility] of tablet 00:00: mouth (two) Medical times [facility] daily. busPIRone 2020-0 Yes [id number] 15mg Take 1 [facility] 15 mg 1-13 tablet by [facility] of tablet 00:00: mouth (two) Medical times [facility] daily. busPIRone 2020-0 Yes [id number] 15mg Take 1 [facility] 15 mg 1-13 tablet by [facility] of tablet 00:00: mouth (two) Medical times [facility] daily. busPIRone 2020-0 Yes [id number] 15mg Take 1 [facility] 15 mg 1-13 tablet by [facility] of tablet 00:00: mouth (two) Medical times [facility] daily. busPIRone 2020-0 Yes [id number] 15mg Take 1 [facility] 15 mg 1-13 tablet by [facility] of tablet 00:00: mouth (two) Medical times [facility] daily. busPIRone 2020-0 Yes [id number] 15mg Take 1 [facility] 15 mg 1-13 tablet by [facility] of tablet 00:00: mouth (two) Medical times [facility] daily. busPIRone 2020-0 Yes [id number] 15mg Take 1 [facility] 15 mg 1-13 tablet by [facility] of tablet 00:00: mouth (two) Medical times [facility] daily. busPIRone 2020-0 Yes [id number] 15mg Take 1 [facility] 15 mg 1-13 tablet by [facility] of tablet 00:00: mouth (two) Medical times [facility] daily. busPIRone 2020-0 Yes [id number] 15mg Take 1 [facility] 15 mg 1-13 tablet by [facility] of tablet 00:00: mouth (two) Medical times [facility] daily. busPIRone 2020-0 Yes [id number] 15mg Take 1 [facility] 15 mg 1-13 tablet by [facility] of tablet 00:00: mouth (two) Medical times [facility] daily. busPIRone 2020-0 Yes [id number] 15mg Take 1 [facility] 15 mg 1-13 tablet by [facility] of tablet 00:00: mouth (two) Medical times [facility] daily. busPIRone 2020-0 Yes [id number] 15mg Take 1 [facility] 15 mg 1-13 tablet by [facility] of tablet 00:00: mouth 2 [place] 00 (two) Medical times [facility] daily. busPIRone 2020-0 Yes [id number] 15mg Take 1 [facility] 15 mg 1-13 tablet by [facility] of tablet 00:00: mouth (two) Medical times [facility] daily. busPIRone 2020-0 Yes [id number] 15mg Take 1 [facility] 15 mg 1-13 tablet by [facility] of tablet 00:00: mouth (two) Medical times [facility] daily. busPIRone 2020-0 Yes [id number] 15mg Take 1 [facility] 15 mg 1-13 tablet by [facility] of tablet 00:00: mouth (two) Medical times [facility] daily. busPIRone 2020-0 Yes [id number] 15mg Take 1 [facility] 15 mg 1-13 tablet by [facility] of tablet 00:00: mouth (two) Medical times [facility] daily. busPIRone 2020-0 Yes [id number] 15mg Take 1 [facility] 15 mg 1-13 tablet by [facility] of tablet 00:00: mouth (two) Medical times [facility] daily. busPIRone 2020-0 Yes [id number] 15mg Take 1 [facility] 15 mg 1-13 tablet by [facility] of tablet 00:00: mouth (two) Medical times [facility] daily. busPIRone 2020-0 Yes [id number] 15mg Take 1 [facility] 15 mg 1-13 tablet by [facility] of tablet 00:00: mouth (two) Medical times [facility] daily. busPIRone 2020-0 Yes [id number] 15mg Take 1 [facility] 15 mg 1-13 tablet by [facility] of tablet 00:00: mouth (two) Medical times [facility] daily. busPIRone 2020-0 Yes [id number] 15mg Take 1 [facility] 15 mg 1-13 tablet by [facility] of tablet 00:00: mouth (two) Medical times [facility] daily. busPIRone 2020-0 Yes [id number] 15mg Take 1 [facility] 15 mg 1-13 tablet by [facility] of tablet 00:00: mouth 2 (two) Medical times [facility] daily. busPIRone 2020-0 Yes [id number] 15mg Take 1 [facility] 15 mg 1-13 tablet by [facility] of tablet 00:00: mouth 2 (two) Medical times [facility] daily. busPIRone 2020-0 Yes [id number] 15mg Take 1 [facility] 15 mg 1-13 tablet by [facility] of tablet 00:00: mouth (two) Medical times [facility] daily. busPIRone 2020-0 Yes [id number] 15mg Take 1 [facility] 15 mg 1-13 tablet by [facility] of tablet 00:00: mouth (two) Medical times [facility] daily. busPIRone 2020-0 Yes [id number] 15mg Take 1 [facility] 15 mg 1-13 tablet by [facility] of tablet 00:00: mouth (two) Medical times [facility] daily. busPIRone 2020-0 Yes [id number] 15mg Take 1 [facility] 15 mg 1-13 tablet by [facility] of tablet 00:00: mouth (two) Medical times [facility] daily. busPIRone 2020-0 Yes [id number] 15mg Take 1 [facility] 15 mg 1-13 tablet by [facility] of tablet 00:00: mouth (two) Medical times [facility] daily. busPIRone 2020-0 Yes [id number] 15mg Take 1 [facility] 15 mg 1-13 tablet by [facility] of tablet 00:00: mouth [place] (two) Medical times [facility] daily. busPIRone 2020-0 Yes [id number] 15mg Take 1 [facility] 15 mg 1-13 tablet by [facility] of tablet 00:00: mouth (two) Medical times [facility] daily. busPIRone 2020-0 Yes [id number] 15mg Take 1 [facility] 15 mg 1-13 tablet by [facility] of tablet 00:00: mouth [place] (two) Medical times [facility] daily. busPIRone 2020-0 Yes [id number] 15mg Take 1 [facility] 15 mg 1-13 tablet by [facility] of tablet 00:00: mouth (two) Medical times [facility] daily. busPIRone 2020-0 Yes [id number] 15mg Take 1 [facility] 15 mg 1-13 tablet by [facility] of tablet 00:00: mouth (two) Medical times [facility] daily. busPIRone 2020-0 Yes [id number] 15mg Take 1 [facility] 15 mg 1-13 tablet by [facility] of tablet 00:00: mouth (two) Medical times [facility] daily. busPIRone 2020-0 Yes [id number] 15mg Take 1 [facility] 15 mg 1-13 tablet by [facility] of tablet 00:00: mouth (two) Medical times [facility] daily. busPIRone 2020-0 Yes [id number] 15mg Take 1 [facility] 15 mg 1-13 tablet by [facility] of tablet 00:00: mouth (two) Medical times [facility] daily. busPIRone 2020-0 Yes [id number] 15mg Take 1 [facility] 15 mg 1-13 tablet by [facility] of tablet 00:00: mouth (two) Medical times [facility] daily. busPIRone 2020-0 Yes [id number] 15mg Take 1 [facility] 15 mg 1-13 tablet by [facility] of tablet 00:00: mouth (two) Medical times [facility] daily. busPIRone 2020-0 Yes [id number] 15mg Take 1 [facility] 15 mg 1-13 tablet by [facility] of tablet 00:00: mouth (two) Medical times [facility] daily. busPIRone 2020-0 Yes [id number] 15mg Take 1 [facility] 15 mg 1-13 tablet by [facility] of tablet 00:00: mouth (two) Medical times [facility] daily. busPIRone 2020-0 Yes [id number] 15mg Take 1 [facility] 15 mg 1-13 tablet by [facility] of tablet 00:00: mouth (two) Medical times [facility] daily. busPIRone 2020-0 Yes [id number] 15mg Take 1 [facility] 15 mg 1-13 tablet by [facility] of tablet 00:00: mouth (two) Medical times [facility] daily. busPIRone 2020-0 Yes [id number] 15mg Take 1 [facility] 15 mg 1-13 tablet by [facility] of tablet 00:00: mouth (two) Medical times [facility] daily. busPIRone 2020-0 Yes [id number] 15mg Take 1 [facility] 15 mg 1-13 tablet by [facility] of tablet 00:00: mouth (two) Medical times [facility] daily. busPIRone 2020-0 Yes [id number] 15mg Take 1 [facility] 15 mg 1-13 tablet by [facility] of tablet 00:00: mouth (two) Medical times [facility] daily. busPIRone 2020-0 Yes [id number] 15mg Take 1 [facility] 15 mg 1-13 tablet by [facility] of tablet 00:00: mouth (two) Medical times [facility] daily. busPIRone 2020-0 Yes [id number] 15mg Take 1 [facility] 15 mg 1-13 tablet by [facility] of tablet 00:00: mouth (two) Medical times [facility] daily. busPIRone 2020-0 Yes [id number] 15mg Take 1 [facility] 15 mg 1-13 tablet by [facility] of tablet 00:00: mouth (two) Medical times [facility] daily. busPIRone 2020-0 Yes [id number] 15mg Take 1 [facility] 15 mg 1-13 tablet by [facility] of tablet 00:00: mouth (two) Medical times [facility] daily. busPIRone 2020-0 Yes [id number] 15mg Take 1 [facility] 15 mg 1-13 tablet by [facility] of tablet 00:00: mouth (two) Medical times [facility] daily. busPIRone 2020-0 Yes [id number] 15mg Take 1 [facility] 15 mg 1-13 tablet by [facility] of tablet 00:00: mouth (two) Medical times [facility] daily. busPIRone 2020-0 Yes [id number] 15mg Take 1 [facility] 15 mg 1-13 tablet by [facility] of tablet 00:00: mouth (two) Medical times [facility] daily. busPIRone 2020-0 Yes [id number] 15mg Take 1 [facility] 15 mg 1-13 tablet by [facility] of tablet 00:00: mouth (two) Medical times [facility] daily. busPIRone 2020-0 Yes [id number] 15mg Take 1 [facility] 15 mg 1-13 tablet by [facility] of tablet 00:00: mouth (two) Medical times [facility] daily. busPIRone 2020-0 Yes [id number] 15mg Take 1 [facility] 15 mg 1-13 tablet by [facility] of tablet 00:00: mouth (two) Medical times [facility] daily. busPIRone 2020-0 Yes [id number] 15mg Take 1 [facility] 15 mg 1-13 tablet by [facility] of tablet 00:00: mouth (two) Medical times [facility] daily. busPIRone 2020-0 Yes [id number] 15mg Take 1 [facility] 15 mg 1-13 tablet by [facility] of tablet 00:00: mouth (two) Medical times [facility] daily. busPIRone 2020-0 Yes [id number] 15mg Take 1 [facility] 15 mg 1-13 tablet by [facility] of tablet 00:00: mouth (two) Medical times [facility] daily. busPIRone 2020-0 Yes [id number] 15mg Take 1 [facility] 15 mg 1-13 tablet by [facility] of tablet 00:00: mouth (two) Medical times [facility] daily. busPIRone 2020-0 Yes [id number] 15mg Take 1 [facility] 15 mg 1-13 tablet by [facility] of tablet 00:00: mouth (two) Medical times [facility] daily. busPIRone 2020-0 Yes [id number] 15mg Take 1 [facility] 15 mg 1-13 tablet by [facility] of tablet 00:00: mouth (two) Medical times [facility] daily. busPIRone 2020-0 Yes [id number] 15mg Take 1 [facility] 15 mg 1-13 tablet by [facility] of tablet 00:00: mouth [place] (two) Medical times [facility] daily. busPIRone 2020-0 Yes [id number] 15mg Take 1 [facility] 15 mg 1-13 tablet by [facility] of tablet 00:00: mouth [place] (two) Medical times [facility] daily. busPIRone 2020-0 Yes [id number] 15mg Take 1 [facility] 15 mg 1-13 tablet by [facility] of tablet 00:00: mouth (two) Medical times [facility] daily. busPIRone 2020-0 Yes [id number] 15mg Take 1 [facility] 15 mg 1-13 tablet by [facility] of tablet 00:00: mouth [place] (two) Medical times [facility] daily. busPIRone 2020-0 Yes [id number] 15mg Take 1 [facility] 15 mg 1-13 tablet by [facility] of tablet 00:00: mouth [place] (two) Medical times [facility] daily. busPIRone 2020-0 Yes [id number] 15mg Take 1 [facility] 15 mg 1-13 tablet by [facility] of tablet 00:00: mouth (two) Medical times [facility] daily. busPIRone 2020-0 Yes [id number] 15mg Take 1 [facility] 15 mg 1-13 tablet by [facility] of tablet 00:00: mouth (two) Medical times [facility] daily. busPIRone 2020-0 Yes [id number] 15mg Take 1 [facility] 15 mg 1-13 tablet by [facility] of tablet 00:00: mouth (two) Medical times [facility] daily. busPIRone 2020-0 Yes [id number] 15mg Take 1 [facility] 15 mg 1-13 tablet by [facility] of tablet 00:00: mouth (two) Medical times [facility] daily. busPIRone 2020-0 Yes [id number] 15mg Take 1 [facility] 15 mg 1-13 tablet by [facility] of tablet 00:00: mouth (two) Medical times [facility] daily. busPIRone 2020-0 Yes [id number] 15mg Take 1 [facility] 15 mg 1-13 tablet by [facility] of tablet 00:00: mouth (two) Medical times [facility] daily. busPIRone 2020-0 Yes [id number] 15mg Take 1 [facility] 15 mg 1-13 tablet by [facility] of tablet 00:00: mouth (two) Medical times [facility] daily. busPIRone 2020-0 Yes [id number] 15mg Take 1 [facility] 15 mg 1-13 tablet by [facility] of tablet 00:00: mouth (two) Medical times [facility] daily. busPIRone 2020-0 Yes [id number] 15mg Take 1 [facility] 15 mg 1-13 tablet by [facility] of tablet 00:00: mouth (two) Medical times [facility] daily. busPIRone 2020-0 Yes [id number] 15mg Take 1 [facility] 15 mg 1-13 tablet by [facility] of tablet 00:00: mouth (two) Medical times [facility] daily. busPIRone 2020-0 Yes [id number] 15mg Take 1 [facility] 15 mg 1-13 tablet by [facility] of tablet 00:00: mouth (two) Medical times [facility] daily. busPIRone 2020-0 Yes [id number] 15mg Take 1 [facility] 15 mg 1-13 tablet by [facility] of tablet 00:00: mouth (two) Medical times [facility] daily. busPIRone 2020-0 Yes [id number] 15mg Take 1 [facility] 15 mg 1-13 tablet by [facility] of tablet 00:00: mouth (two) Medical times [facility] daily. busPIRone 2020-0 Yes [id number] 15mg Take 1 [facility] 15 mg 1-13 tablet by [facility] of tablet 00:00: mouth (two) Medical times [facility] daily. busPIRone 2020-0 Yes [id number] 15mg Take 1 [facility] 15 mg 1-13 tablet by [facility] of tablet 00:00: mouth (two) Medical times [facility] daily. busPIRone 2020-0 Yes [id number] 15mg Take 1 [facility] 15 mg 1-13 tablet by [facility] of tablet 00:00: mouth (two) Medical times [facility] daily. busPIRone 2020-0 Yes [id number] 15mg Take 1 [facility] 15 mg 1-13 tablet by [facility] of tablet 00:00: mouth (two) Medical times [facility] daily. busPIRone 2020-0 Yes [id number] 15mg Take 1 [facility] 15 mg 1-13 tablet by [facility] of tablet 00:00: mouth (two) Medical times [facility] daily. busPIRone 2020-0 Yes [id number] 15mg Take 1 [facility] 15 mg 1-13 tablet by [facility] of tablet 00:00: mouth (two) Medical times [facility] daily. busPIRone 2020-0 Yes [id number] 15mg Take 1 [facility] 15 mg 1-13 tablet by [facility] of tablet 00:00: mouth (two) Medical times [facility] daily. busPIRone 2020-0 Yes [id number] 15mg Take 1 [facility] 15 mg 1-13 tablet by [facility] of tablet 00:00: mouth (two) Medical times [facility] daily. busPIRone 2020-0 Yes [id number] 15mg Take 1 [facility] 15 mg 1-13 tablet by [facility] of tablet 00:00: mouth (two) Medical times [facility] daily. busPIRone 2020-0 Yes [id number] 15mg Take 1 [facility] 15 mg 1-13 tablet by [facility] of tablet 00:00: mouth (two) Medical times [facility] daily. busPIRone 2020-0 Yes [id number] 15mg Take 1 [facility] 15 mg 1-13 tablet by [facility] of tablet 00:00: mouth (two) Medical times [facility] daily. busPIRone 2020-0 Yes [id number] 15mg Take 1 [facility] 15 mg 1-13 tablet by [facility] of tablet 00:00: mouth (two) Medical times [facility] daily. busPIRone 2020-0 Yes [id number] 15mg Take 1 [facility] 15 mg 1-13 tablet by [facility] of tablet 00:00: mouth (two) Medical times [facility] daily. busPIRone 2020-0 Yes [id number] 15mg Take 1 [facility] 15 mg 1-13 tablet by [facility] of tablet 00:00: mouth (two) Medical times [facility] daily. busPIRone 2020-0 Yes [id number] 15mg Take 1 [facility] 15 mg 1-13 tablet by [facility] of tablet 00:00: mouth (two) Medical times [facility] daily. busPIRone 2020-0 Yes [id number] 15mg Take 1 [facility] 15 mg 1-13 tablet by [facility] of tablet 00:00: mouth (two) Medical times [facility] daily. busPIRone 2020-0 Yes [id number] 15mg Take 1 [facility] 15 mg 1-13 tablet by [facility] of tablet 00:00: mouth (two) Medical times [facility] daily. busPIRone 2020-0 Yes [id number] 15mg Take 1 [facility] 15 mg 1-13 tablet by [facility] of tablet 00:00: mouth (two) Medical times [facility] daily. busPIRone 2020-0 Yes [id number] 15mg Take 1 [facility] 15 mg 1-13 tablet by [facility] of tablet 00:00: mouth (two) Medical times [facility] daily. busPIRone 2020-0 Yes [id number] 15mg Take 1 [facility] 15 mg 1-13 tablet by [facility] of tablet 00:00: mouth (two) Medical times [facility] daily. busPIRone 2020-0 Yes [id number] 15mg Take 1 [facility] 15 mg 1-13 tablet by [facility] of tablet 00:00: mouth (two) Medical times [facility] daily. busPIRone 2020-0 Yes [id number] 15mg Take 1 [facility] 15 mg 1-13 tablet by [facility] of tablet 00:00: mouth (two) Medical times [facility] daily. busPIRone 2020-0 Yes [id number] 15mg Take 1 [facility] 15 mg 1-13 tablet by [facility] of tablet 00:00: mouth (two) Medical times [facility] daily. busPIRone 2020-0 Yes [id number] 15mg Take 1 [facility] 15 mg 1-13 tablet by [facility] of tablet 00:00: mouth (two) Medical times [facility] daily. busPIRone 2020-0 Yes [id number] 15mg Take 1 [facility] 15 mg 1-13 tablet by [facility] of tablet 00:00: mouth (two) Medical times [facility] daily. busPIRone 2020-0 Yes [id number] 15mg Take 1 [facility] 15 mg 1-13 tablet by [facility] of tablet 00:00: mouth (two) Medical times [facility] daily. busPIRone 2020-0 Yes [id number] 15mg Take 1 [facility] 15 mg 1-13 tablet by [facility] of tablet 00:00: mouth (two) Medical times [facility] daily. busPIRone 2020-0 Yes [id number] 15mg Take 1 [facility] 15 mg 1-13 tablet by [facility] of tablet 00:00: mouth (two) Medical times [facility] daily. busPIRone 2020-0 Yes [id number] 15mg Take 1 [facility] 15 mg 1-13 tablet by [facility] of tablet 00:00: mouth (two) Medical times [facility] daily. busPIRone 2020-0 Yes [id number] 15mg Take 1 [facility] 15 mg 1-13 tablet by [facility] of tablet 00:00: mouth (two) Medical times [facility] daily. busPIRone 2020-0 Yes [id number] 15mg Take 1 [facility] 15 mg 1-13 tablet by [facility] of tablet 00:00: mouth 2 (two) Medical times [facility] daily. busPIRone 2020-0 Yes [id number] 15mg Take 1 [facility] 15 mg 1-13 tablet by [facility] of tablet 00:00: mouth [place] (two) Medical times [facility] daily. busPIRone 2020-0 Yes [id number] 15mg Take 1 [facility] 15 mg 1-13 tablet by [facility] of tablet 00:00: mouth [place] (two) Medical times [facility] daily. busPIRone 2020-0 Yes [id number] 15mg Take 1 [facility] 15 mg 1-13 tablet by [facility] of tablet 00:00: mouth (two) Medical times [facility] daily. busPIRone 2020-0 Yes [id number] 15mg Take 1 [facility] 15 mg 1-13 tablet by [facility] of tablet 00:00: mouth [place] (two) Medical times [facility] daily. busPIRone 2020-0 Yes [id number] 15mg Take 1 [facility] 15 mg 1-13 tablet by [facility] of tablet 00:00: mouth [place] (two) Medical times [facility] daily. busPIRone 2020-0 Yes [id number] 15mg Take 1 [facility] 15 mg 1-13 tablet by [facility] of tablet 00:00: mouth [place] (two) Medical times [facility] daily. busPIRone 2020-0 Yes [id number] 15mg Take 1 [facility] 15 mg 1-13 tablet by [facility] of tablet 00:00: mouth [place] (two) Medical times [facility] daily. busPIRone 2020-0 Yes [id number] 15mg Take 1 [facility] 15 mg 1-13 tablet by [facility] of tablet 00:00: mouth [place] (two) Medical times [facility] daily. busPIRone 2020-0 Yes [id number] 15mg Take 1 [facility] 15 mg 1-13 tablet by [facility] of tablet 00:00: mouth [place] (two) Medical times [facility] daily. busPIRone 2020-0 Yes [id number] 15mg Take 1 [facility] 15 mg 1-13 tablet by [facility] of tablet 00:00: mouth [place] (two) Medical times [facility] daily. busPIRone 2020-0 Yes [id number] 15mg Take 1 [facility] 15 mg 1-13 tablet by [facility] of tablet 00:00: mouth (two) Medical times [facility] daily. busPIRone 2020-0 Yes [id number] 15mg Take 1 [facility] 15 mg 1-13 tablet by [facility] of tablet 00:00: mouth (two) Medical times [facility] daily. busPIRone 2020-0 Yes [id number] 15mg Take 1 [facility] 15 mg 1-13 tablet by [facility] of tablet 00:00: mouth (two) Medical times [facility] daily. busPIRone 2020-0 Yes [id number] 15mg Take 1 [facility] 15 mg 1-13 tablet by [facility] of tablet 00:00: mouth (two) Medical times [facility] daily. busPIRone 2020-0 Yes [id number] 15mg Take 1 [facility] 15 mg 1-13 tablet by [facility] of tablet 00:00: mouth (two) Medical times [facility] daily. busPIRone 2020-0 Yes [id number] 15mg Take 1 [facility] 15 mg 1-13 tablet by [facility] of tablet 00:00: mouth (two) Medical times [facility] daily. busPIRone 2020-0 Yes [id number] 15mg Take 1 [facility] 15 mg 1-13 tablet by [facility] of tablet 00:00: mouth (two) Medical times [facility] daily. busPIRone 2020-0 Yes [id number] 15mg Take 1 [facility] 15 mg 1-13 tablet by [facility] of tablet 00:00: mouth (two) Medical times [facility] daily. amantadine 2018- Yes [id number] 200mg Take 20 mL [facility] HCl 50 mg/5 0-18 by mouth 2 [facility] y of mL solution 00:00: (two) 00 times Medical daily. Branch amantadine 2018- Yes [id number] 200mg Take 20 mL [facility] HCl 50 mg/5 0-18 by mouth 2 [facility] y of mL solution 00:00: (two) [place] 00 times Medical daily. Branch amantadine 2018- Yes [id number] 200mg Take 20 mL [facility] HCl 50 mg/5 0-18 by mouth 2 [facility] y of mL solution 00:00: (two) [place] 00 times Medical daily. Branch amantadine 2018- Yes [id number] 200mg Take 20 mL [facility] HCl 50 mg/5 0-18 by mouth 2 [facility] y of mL solution 00:00: (two) [place] 00 times Medical daily. Branch amantadine 2018- Yes [id number] 200mg Take 20 mL [facility] HCl 50 mg/5 0-18 by mouth 2 [facility] y of mL solution 00:00: (two) [place] 00 times Medical daily. Branch amantadine 2018- Yes [id number] 200mg Take 20 mL [facility] HCl 50 mg/5 0-18 by mouth 2 [facility] y of mL solution 00:00: (two) [place] 00 times Medical daily. Branch amantadine 2018- Yes [id number] 200mg Take 20 mL [facility] HCl 50 mg/5 0-18 by mouth 2 it y of mL solution 00:00: (two) [place] 00 times Medical daily. Branch amantadine 2018- Yes [id number] 200mg Take 20 mL [facility] HCl 50 mg/5 0-18 by mouth 2 it y of mL solution 00:00: (two) [place] 00 times Medical daily. Branch amantadine 2018- Yes [id number] 200mg Take 20 mL [facility] HCl 50 mg/5 0-18 by mouth 2 it y of mL solution 00:00: (two) [place] 00 times Medical daily. Branch amantadine 2018- Yes [id number] 200mg Take 20 mL [facility] HCl 50 mg/5 0-18 by mouth 2 it y of mL solution 00:00: (two) [place] 00 times Medical daily. Branch amantadine 2018- Yes [id number] 200mg Take 20 mL [facility] HCl 50 mg/5 0-18 by mouth 2 it y of mL solution 00:00: (two) [place] 00 times Medical daily. Branch amantadine 2018- Yes [id number] 200mg Take 20 mL [facility] HCl 50 mg/5 0-18 by mouth 2 it y of mL solution 00:00: (two) [place] 00 times Medical daily. Branch amantadine 2018- Yes [id number] 200mg Take 20 mL [facility] HCl 50 mg/5 0-18 by mouth 2 it y of mL solution 00:00: (two) [place] 00 times Medical daily. Branch amantadine 2018- Yes [id number] 200mg Take 20 mL [facility] HCl 50 mg/5 0-18 by mouth 2 it y of mL solution 00:00: (two) [place] 00 times Medical daily. Branch amantadine 2018-07 Yes [id number] 200mg Take 20 mL [facility] HCl 50 mg/5 0-18 by mouth 2 it y of mL solution 00:00: (two) [place] 00 times Medical daily. Branch amantadine 2018-07 Yes [id number] 200mg Take 20 mL [facility] HCl 50 mg/5 0-18 by mouth 2 it y of mL solution 00:00: (two) [place] 00 times Medical daily. Branch amantadine 2018-07 Yes [id number] 200mg Take 20 mL [facility] HCl 50 mg/5 0-18 by mouth 2 it y of mL solution 00:00: (two) [place] 00 times Medical daily. Branch amantadine 2018-07- No [id number] 200mg Take 20 mL [facility] HCl 50 mg/5 0-18 12-05 by mouth 2 i ty of mL solution 00:00: 00:00 (two) [place] :00 times [facility] daily. [facility] amantadine 2018-07- No [id number] 200mg Take 20 mL [facility] HCl 50 mg/5 0-18 12-05 by mouth 2 i ty of mL solution 00:00: 00:00 (two) [place] :00 times [facility] daily. [facility] amantadine 2018-07- No [id number] 200mg Take 20 mL [facility] HCl 50 mg/5 0-18 12-05 by mouth 2 i ty of mL solution 00:00: 00:00 (two) [place] :[place] times [facility] daily. [facility] risperiDONE 2018-07 Yes [id number] .5mg Take 2 [facility] (RISPERDAL) 0-16 tablets by it y of 0.25 mg 00:00: mouth 2 [place] tablet 00 (two) Medical times [place] daily. AM/PM risperiDONE 2018-07 Yes [id number] .5mg Take 2 [facility] (RISPERDAL) 0-16 tablets by it y of 0.25 mg 00:00: mouth 2 [place] tablet 00 (two) Medical times [place] daily. AM/PM risperiDONE 2018-07 Yes [id number] .5mg Take 2 [facility] (RISPERDAL) 0-16 tablets by it y of 0.25 mg 00:00: mouth 2 [place] tablet 00 (two) Medical times Branch daily. AM/PM risperiDONE 2018-07 Yes [id number] .5mg Take 2 [facility] (RISPERDAL) 0-16 tablets by it y of 0.25 mg 00:00: mouth 2 [place] tablet 00 (two) Medical times Branch daily. AM/PM risperiDONE 2018-07 Yes [id number] .5mg Take 2 [facility] (RISPERDAL) 0-16 tablets by it y of 0.25 mg 00:00: mouth 2 [place] tablet 00 (two) Medical times Branch daily. AM/PM risperiDONE 2018-07 Yes [id number] .5mg Take 2 [facility] (RISPERDAL) 0-16 tablets by it y of 0.25 mg 00:00: mouth 2 [place] tablet 00 (two) Medical times Branch daily. AM/PM risperiDONE 2018-07 Yes [id number] .5mg Take 2 [facility] (RISPERDAL) 0-16 tablets by it y of 0.25 mg 00:00: mouth 2 [place] tablet 00 (two) Medical times Branch daily. AM/PM amantadine 2018-07 Yes [id number] 200mg Take 2 [facility] HCl 100 mg 0-15 capsules ity o f capsule 00:00: by mouth 2 [place] [facility] [place] [facility] daily. ARIPiprazol 2018-07 Yes [id number] 2mg Take 1 [facility] (ABILIFY) 0-15 tablet by ity of 2 mg tablet 00:00: mouth [place] 00 daily. Medical Branch amantadine 2018-07 Yes [id number] 200mg Take 2 [facility] HCl 100 mg 0-15 capsules [facility] o f capsule 00:00: [place] mouth 2 [place] ([place] [facility] times [facility] daily. ARIPiprazol 2018-07 Yes [id number] 2mg Take 1 [facility] (ABILIFY) 0-15 tablet by ity of 2 mg tablet 00:00: mouth [place] 00 daily. Medical Branch amantadine 2018-07 Yes [id number] 200mg Take 2 [facility] HCl 100 mg 0-15 capsules [facility] o [facility] capsule 00:00: [place] mouth 2 [place] (two) Medical times [facility] daily. ARIPiprazol 2018-07 Yes [id number] 2mg Take 1 [facility] (ABILIFY) 0-15 tablet by ity of 2 mg tablet 00:00: mouth [place] 00 daily. Medical [facility] amantadine 2018-07 Yes [id number] 200mg Take 2 [facility] HCl 100 mg 0-15 capsules [facility] o [facility] capsule 00:00: [place] mouth 2 [place] (two) Medical times [facility] daily. amantadine 2018-07 Yes [id number] 200mg Take 2 [facility] HCl 100 mg 0-15 capsules [facility] o [facility] capsule 00:00: [place] mouth 2 [place] (two) [facility] times [facility] daily. amantadine 2018-07 Yes [id number] 200mg Take 2 [facility] HCl 100 mg 0-15 capsules [facility] o [facility] capsule 00:00: [place] mouth 2 [place] (two) Medical times [facility] daily. amantadine 2018-07 Yes [id number] 200mg Take 2 [facility] HCl 100 mg 0-15 capsules [facility] o [facility] capsule 00:00: [place] mouth 2 [place] (two) Medical times [facility] daily. amantadine 2018-07 Yes [id number] 200mg Take 2 [facility] HCl 100 mg 0-15 capsules [facility] o f capsule 00:00: [place] mouth 2 [place] (two) Medical times [facility] daily. amantadine 2018-07 Yes [id number] 200mg Take 2 [facility] HCl 100 mg 0-15 capsules [facility] o [facility] capsule 00:00: [place] mouth 2 [place] (two) Medical times Branch daily. amantadine 2018-07 Yes [id number] 200mg Take 2 [facility] HCl 100 mg 0-15 capsules [facility] o [facility] capsule 00:00: [place] mouth 2 [place] (two) Medical times [facility] daily. amantadine 2018-07 Yes [id number] 200mg Take 2 [facility] HCl 100 mg 0-15 capsules [facility] o f capsule 00:00: [place] mouth 2 [place] (two) Medical times [facility] daily. amantadine 2018-07 Yes [id number] 200mg Take 2 [facility] HCl 100 mg 0-15 capsules [facility] o f capsule 00:00: by mouth 2 [place] (two) Medical times [facility] daily. amantadine 2018-07 Yes [id number] 200mg Take 2 [facility] HCl 100 mg 0-15 capsules [facility] o f capsule 00:00: by mouth 2 [place] (two) Medical times Branch daily. amantadine 2018-07 Yes [id number] 200mg Take 2 [facility] HCl 100 mg 0-15 capsules [facility] o f capsule 00:00: by mouth 2 [place] (two) Medical times [facility] daily. amantadine 2018-07 Yes [id number] 200mg Take 2 [facility] HCl 100 mg 0-15 capsules [facility] o f capsule 00:00: by mouth 2 [place] (two) Medical times Branch daily. amantadine 2018-07 Yes [id number] 200mg Take 2 [facility] HCl 100 mg 0-15 capsules [facility] o f capsule 00:00: by mouth 2 [place] (two) Medical times [facility] daily. amantadine 2018-07 Yes [id number] 200mg Take 2 [facility] HCl 100 mg 0-15 capsules [facility] o f capsule 00:00: by mouth 2 [place] (two) Medical times [facility] daily. amantadine 2018-07 Yes [id number] 200mg Take 2 [facility] HCl 100 mg 0-15 capsules [facility] o f capsule 00:00: by mouth 2 [place] (two) Medical times Branch daily. amantadine 2018-07 Yes [id number] 200mg Take 2 [facility] HCl 100 mg 0-15 capsules [facility] o f capsule 00:00: by mouth 2 [place] (two) Medical times [facility] daily. amantadine 2018-07 Yes [id number] 200mg Take 2 [facility] HCl 100 mg 0-15 capsules [facility] o f capsule 00:00: by mouth 2 [place] (two) Medical times Branch daily. amantadine 2018-07 Yes [id number] 200mg Take 2 [facility] HCl 100 mg 0-15 capsules [facility] o f capsule 00:00: by mouth 2 [place] (two) Medical times Branch daily. ARIPiprazol 2018-07 Yes [id number] 2mg Take 1 [facility] (ABILIFY) 0-15 tablet by ity of 2 mg tablet 00:00: mouth 00 daily. Medical Branch amantadine 2018-07 Yes [id number] 200mg Take 2 [facility] HCl 100 mg 0-15 capsules [facility] o f capsule 00:00: by mouth 2 [place] (two) Medical times Branch daily. ARIPiprazol 2018-07 Yes [id number] 2mg Take 1 [facility] (ABILIFY) 0-15 tablet by ity of 2 mg tablet 00:00: mouth 00 daily. Medical Branch amantadine 2018-07 Yes [id number] 200mg Take 2 [facility] HCl 100 mg 0-15 capsules it[facility] o f capsule 00:00: by mouth 2 [place] (two) Medical times Branch daily. ARIPiprazol 2018-07 Yes [id number] 2mg Take 1 [facility] (ABILIFY) 0-15 tablet by ity of 2 mg tablet 00:00: mouth [place] 00 daily. Medical Branch amantadine 2018-07 Yes [id number] 200mg Take 2 [facility] HCl 100 mg 0-15 capsules it[facility] o f capsule 00:00: by mouth 2 [place] (two) Medical times Branch daily. ARIPiprazol 2018-07 Yes [id number] 2mg Take 1 [facility] (ABILIFY) 0-15 tablet by ity of 2 mg tablet 00:00: mouth [place] 00 daily. [facility] amantadine 2018-07 Yes [id number] 200mg Take 2 [facility] HCl 100 mg 0-15 capsules ity o f capsule 00:00: by mouth 2 [place] (two) Medical times Branch daily. ARIPiprazol 2018-07 Yes [id number] 2mg Take 1 [facility] (ABILIFY) 0-15 tablet by ity of 2 mg tablet 00:00: mouth [place] 00 daily. [facility] amantadine 2018-07 Yes [id number] 200mg Take 2 [facility] HCl 100 mg 0-15 capsules ity o f capsule 00:00: by mouth 2 [place] (two) Medical times Branch daily. ARIPiprazol 2018-07 Yes [id number] 2mg Take 1 [facility] (ABILIFY) 0-15 tablet by ity of 2 mg tablet 00:00: mouth [place] 00 daily. Medical Branch amantadine 2018-07 Yes [id number] 200mg Take 2 [facility] HCl 100 mg 0-15 capsules ity o f capsule 00:00: by mouth 2 [place] (two) Medical times Branch daily. ARIPiprazol 2018-07 Yes [id number] 2mg Take 1 [facility] (ABILIFY) 0-15 tablet by ity of 2 mg tablet 00:00: mouth [place] 00 daily. [facility] Branch amantadine 2018-07 Yes [id number] 200mg Take 2 [facility] HCl 100 mg 0-15 capsules ity o f capsule 00:00: by mouth 2 [place] (two) Medical times Branch daily. ARIPiprazol 2018-07 Yes [id number] 2mg Take 1 [facility] (ABILIFY) 0-15 tablet by ity of 2 mg tablet 00:00: mouth [place] 00 daily. [facility] Branch amantadine 2018-07 Yes [id number] 200mg Take 2 [facility] HCl 100 mg 0-15 capsules ity o f capsule 00:00: by mouth 2 [place] (two) Medical times Branch daily. ARIPiprazol 2018-07 Yes [id number] 2mg Take 1 [facility] (ABILIFY) 0-15 tablet by ity of 2 mg tablet 00:00: mouth [place] 00 daily. [facility] Branch amantadine 2018-07 Yes [id number] 200mg Take 2 [facility] HCl 100 mg 0-15 capsules ity o f capsule 00:00: by mouth 2 [place] (two) Medical times Branch daily. ARIPiprazol 2018-07 Yes [id number] 2mg Take 1 [facility] (ABILIFY) 0-15 tablet by ity of 2 mg tablet 00:00: mouth [place] 00 daily. [facility] Branch amantadine 2018-07 Yes [id number] 200mg Take 2 [facility] HCl 100 mg 0-15 capsules ity o f capsule 00:00: by mouth 2 [place] (two) Medical times Branch daily. ARIPiprazol 2018-07 Yes [id number] 2mg Take 1 [facility] (ABILIFY) 0-15 tablet by ity of 2 mg tablet 00:00: mouth [place] 00 daily. [facility] Branch amantadine 2018-07 Yes [id number] 200mg Take 2 [facility] HCl 100 mg 0-15 capsules ity o f capsule 00:00: by mouth 2 [place] (two) Medical times Branch daily. ARIPiprazol 2018-07 Yes [id number] 2mg Take 1 [facility] (ABILIFY) 0-15 tablet by ity of 2 mg tablet 00:00: mouth [place] 00 daily. [facility] Branch amantadine 2018-07 Yes [id number] 200mg Take 2 [facility] HCl 100 mg 0-15 capsules ity o f capsule 00:00: by mouth 2 [place] (two) Medical times Branch daily. ARIPiprazol 2018-07 Yes [id number] 2mg Take 1 [facility] (ABILIFY) 0-15 tablet by ity of 2 mg tablet 00:00: mouth [place] 00 daily. [facility] Branch amantadine 2018-07 Yes [id number] 200mg Take 2 [facility] HCl 100 mg 0-15 capsules ity o f capsule 00:00: by mouth 2 [place] (two) Medical times Branch daily. ARIPiprazol 2018-07 Yes [id number] 2mg Take 1 [facility] (ABILIFY) 0-15 tablet by ity of 2 mg tablet 00:00: mouth [place] 00 daily. Medical Branch amantadine 2018-07- No [id number] 200mg Take 2 [facility] HCl 100 mg 0-15 01-31 capsules ity of capsule 00:00: 00:00 by mouth 2 [place] :00 (two) Medical times Branch daily. amantadine 2018-07- No [id number] 200mg Take 2 [facility] HCl 100 mg 0-15 01-31 capsules ity of capsule 00:00: 00:00 by mouth 2 [place] 00 :00 (two) Medical times Branch daily. amantadine 2018-07- No [id number] 200mg Take 2 [facility] HCl 100 mg 0-15 01-31 capsules ity of capsule 00:00: 00:00 by mouth 2 [place] 00 :00 (two) Medical times Branch daily. amantadine 2018-07- No [id number] 200mg Take 2 [facility] HCl 100 mg 0-15 01-31 capsules ity of capsule 00:00: 00:00 by mouth 2 [place] 00 :00 (two) Medical times Branch daily. ARIPiprazol 2018-07- No [id number] 2mg Take 1 [facility] (ABILIFY) 0-15 12-05 tablet by it y of 2 mg tablet 00:00: 00:00 mouth [place] :00 daily. [facility] ARIPiprazol 2018-07- No [id number] 2mg Take 1 [facility] (ABILIFY) 0-15 12-05 tablet by it y of 2 mg tablet 00:00: 00:00 mouth [place] :00 daily. [facility] ARIPiprazol 2018-07- No [id number] 2mg Take 1 [facility] (ABILIFY) 0-15 12-05 tablet by it y of 2 mg tablet 00:00: 00:00 mouth [place] :00 daily. Medical Branch SERTraline 2018-07- No [id number] 25mg Take 1 [facility] 25 mg 0-15 01-14 tablet by ity of tablet 00:00: 00:00 mouth [place] 00 :00 daily. Medical Branch [facility] 2018-07 Yes [id number] INHALE 2 [facility] 45 0-11 PUFFS BY ity of mcg/actuati 00:00: MOUTH [place] on inhaler 00 EVERY 6 Medica l HOURS Branch NEEDED BEFORE EXERCISE OR FOR WHEEZING/S HORTNESS OF BREATH. [facility] 2018-07 Yes [id number] INHALE 2 [facility] 45 0-11 PUFFS BY ity of mcg/actuati 00:00: MOUTH [place] on inhaler 00 EVERY 6 Medica l HOURS Branch NEEDED BEFORE EXERCISE OR FOR WHEEZING/S HORTNESS OF BREATH. [facility] 2018-07 Yes [id number] INHALE 2 [facility] 45 0-11 PUFFS BY ity of mcg/actuati 00:00: MOUTH [place] on inhaler 00 EVERY 6 Medica l HOURS Branch NEEDED BEFORE EXERCISE OR FOR WHEEZING/S HORTNESS OF BREATH. [facility] 2018-07 Yes [id number] INHALE 2 [facility] 45 0-11 PUFFS BY ity of mcg/actuati 00:00: MOUTH [place] on inhaler 00 EVERY 6 Medica l HOURS Branch NEEDED BEFORE EXERCISE OR FOR WHEEZING/S HORTNESS OF BREATH. [facility] 2018-07 Yes [id number] INHALE 2 [facility] 45 0-11 PUFFS BY ity of mcg/actuati 00:00: MOUTH [place] on inhaler 00 EVERY 6 Medica l HOURS Branch NEEDED BEFORE EXERCISE OR FOR WHEEZING/S HORTNESS OF BREATH. [facility] 2018-07 Yes [id number] INHALE 2 [facility] 45 0-11 PUFFS BY ity of mcg/actuati 00:00: MOUTH [place] on inhaler 00 EVERY 6 Medica l HOURS Branch NEEDED BEFORE EXERCISE OR FOR WHEEZING/S HORTNESS OF BREATH. [facility] 2018-07 Yes [id number] INHALE 2 [facility] 45 0-11 PUFFS BY ity of mcg/actuati 00:00: MOUTH [place] on inhaler 00 EVERY 6 Medica l HOURS Branch NEEDED BEFORE EXERCISE OR FOR WHEEZING/S HORTNESS OF BREATH. [facility] 2018-07 Yes [id number] INHALE 2 [facility] 45 0-11 PUFFS BY ity of mcg/actuati 00:00: MOUTH [place] on inhaler 00 EVERY 6 Medica l HOURS Branch NEEDED BEFORE EXERCISE OR FOR WHEEZING/S HORTNESS OF BREATH. [facility] 2018-07 Yes [id number] INHALE 2 [facility] 45 0-11 PUFFS BY ity of mcg/actuati 00:00: MOUTH [place] on inhaler 00 EVERY 6 Medica l HOURS Branch NEEDED BEFORE EXERCISE OR FOR WHEEZING/S HORTNESS OF BREATH. [facility] 2018- Yes [id number] INHALE 2 [facility] 45 0-11 PUFFS BY ity of mcg/actuati 00:00: MOUTH [place] on inhaler 00 EVERY 6 Medica l HOURS Branch NEEDED BEFORE EXERCISE OR FOR WHEEZING/S HORTNESS OF BREATH. [facility]FA 2018-07 Yes [id number] INHALE 2 [facility] 45 0-11 PUFFS BY ity of mcg/actuati 00:00: MOUTH [place] on inhaler 00 EVERY 6 Medica l HOURS Branch NEEDED BEFORE EXERCISE OR FOR WHEEZING/S HORTNESS OF BREATH. [facility] 2018-07 Yes [id number] INHALE 2 [facility] 45 0-11 PUFFS BY ity of mcg/actuati 00:00: MOUTH [place] on inhaler 00 EVERY 6 Medica l HOURS Branch NEEDED BEFORE EXERCISE OR FOR WHEEZING/S HORTNESS OF BREATH. [facility]FA 2018-07 Yes [id number] INHALE 2 [facility] 45 0-11 PUFFS BY ity of mcg/actuati 00:00: MOUTH [place] on inhaler 00 EVERY 6 Medica l HOURS Branch NEEDED BEFORE EXERCISE OR FOR WHEEZING/S HORTNESS OF BREATH. X[facility]FA 2018- Yes [id number] INHALE 2 [facility] 45 0-11 PUFFS BY ity of mcg/actuati 00:00: MOUTH [place] on inhaler 00 EVERY 6 Medica l HOURS Branch NEEDED BEFORE EXERCISE OR FOR WHEEZING/S HORTNESS OF BREATH. [facility]FA 2018- Yes [id number] INHALE 2 [facility] 45 0-11 PUFFS BY ity of mcg/actuati 00:00: MOUTH [place] on inhaler 00 EVERY 6 Medica l HOURS Branch NEEDED BEFORE EXERCISE OR FOR WHEEZING/S HORTNESS OF BREATH. [facility] 2018- Yes [id number] INHALE 2 [facility] 45 0-11 PUFFS BY ity of mcg/actuati 00:00: MOUTH [place] on inhaler 00 EVERY 6 Medica l HOURS Branch NEEDED BEFORE EXERCISE OR FOR WHEEZING/S HORTNESS OF BREATH. X[facility]EX [facility]FA 2018-07 Yes [id number] INHALE 2 [facility] 45 0-11 PUFFS BY ity of mcg/actuati 00:00: MOUTH [place] on inhaler 00 EVERY 6 Medica l HOURS Branch NEEDED BEFORE EXERCISE OR FOR WHEEZING/S HORTNESS OF BREATH. XOPENEX [facility]FA 2018- Yes [id number] INHALE 2 [facility] 45 0-11 PUFFS BY ity of mcg/actuati 00:00: MOUTH [place] on inhaler 00 EVERY 6 Medica l HOURS Branch NEEDED BEFORE EXERCISE OR FOR WHEEZING/S HORTNESS OF BREATH. XOPENEX [facility]FA 2018-07 Yes [id number] INHALE 2 [facility] 45 0-11 PUFFS BY ity of mcg/actuati 00:00: MOUTH [place] on inhaler 00 EVERY 6 Medica l HOURS Branch NEEDED BEFORE EXERCISE OR FOR WHEEZING/S HORTNESS OF BREATH. XOPENEX HFA 2018- Yes [id number] INHALE 2 [facility] 45 0-11 PUFFS BY ity of mcg/actuati 00:00: MOUTH [place] on inhaler 00 EVERY 6 Medica l HOURS Branch NEEDED BEFORE EXERCISE OR FOR WHEEZING/S HORTNESS OF BREATH. XOPENEX HFA 2018- Yes [id number] INHALE 2 [facility] 45 0-11 PUFFS BY ity of mcg/actuati 00:00: MOUTH [place] on inhaler 00 EVERY 6 Medica l HOURS Branch NEEDED BEFORE EXERCISE OR FOR WHEEZING/S HORTNESS OF BREATH. XOPENEX HFA 2018- Yes [id number] INHALE 2 [facility] 45 0-11 PUFFS BY ity of mcg/actuati 00:00: MOUTH [place] on inhaler 00 EVERY 6 Medica l HOURS Branch NEEDED BEFORE EXERCISE OR FOR WHEEZING/S HORTNESS OF BREATH. XOPENEX [facility]FA 2018- Yes [id number] INHALE 2 [facility] 45 0-11 PUFFS BY ity of mcg/actuati 00:00: MOUTH [place] on inhaler 00 EVERY 6 Medica l HOURS Branch NEEDED BEFORE EXERCISE OR FOR WHEEZING/S HORTNESS OF BREATH. XOPENEX [facility]FA 2018-1 Yes [id number] INHALE 2 [facility] 45 0-11 PUFFS BY ity of mcg/actuati 00:00: MOUTH [place] on inhaler 00 EVERY 6 Medica l HOURS Branch NEEDED BEFORE EXERCISE OR FOR WHEEZING/S HORTNESS OF BREATH. XOPENEX [facility]FA 2018-07- No [id number] INHALE 2 [facility] 45 0-11 12-29 PUFFS BY ity of mcg/actuati 00:00: 00:00 MOUTH [place] inhaler 00 :00 EVERY 6 Medica l HOURS Branch NEEDED BEFORE EXERCISE OR FOR WHEEZING/S HORTNESS OF BREATH. XOPENEX [facility]FA 2018-07- No [id number] INHALE 2 [facility] 45 0-11 12-29 PUFFS BY ity of mcg/actuati 00:00: 00:00 MOUTH [place] inhaler 00 :00 EVERY 6 Medica l HOURS Branch NEEDED BEFORE EXERCISE OR FOR WHEEZING/S HORTNESS OF BREATH. fluticasone 2018-07 Yes [id number] 2{puff} Inhale 2 [facility] propionate 0-07 Puffs 2 ity of (FLOVENT 00:00: ([facility]) [place] [facility]FA) 110 00 times Medical mcg/actuati daily. Branch on inhaler fluticasone 2018-07 Yes [id number] 2{puff} Inhale 2 [facility] propionate 0-07 Puffs 2 ity of (FLOVENT 00:00: (two) [place] [facility]FA) 110 00 times Medical mcg/actuati daily. Branch on inhaler fluticasone 2018-07 Yes [id number] 2{puff} Inhale 2 [facility] propionate 0-07 Puffs 2 ity of (FLOVENT 00:00: ([facility]) [place] [facility]FA) 110 00 times Medical mcg/actuati daily. Branch on inhaler fluticasone 2018-07 Yes [id number] 2{puff} Inhale 2 [facility] propionate 0-07 Puffs 2 ity of (FLOVENT 00:00: (two) [place] [facility]FA) 110 00 times Medical mcg/actuati daily. Branch on inhaler fluticasone 2018-07 Yes [id number] 2{puff} Inhale 2 [facility] propionate 0-07 Puffs 2 ity of (FLOVENT 00:00: (two) [place] [facility]FA) 110 00 times Medical mcg/actuati daily. Branch on inhaler fluticasone 2018-07 Yes [id number] 2{puff} Inhale 2 [facility] propionate 0-07 Puffs 2 ity of (FLOVENT 00:00: [facility] [place] times Medical mcg/actuati daily. Branch on inhaler fluticasone 2018-07 Yes [id number] 2{puff} Inhale 2 [facility] propionate 0-07 Puffs 2 ity of (FLOVENT 00:00: ([facility] [place] times Medical mcg/actuati daily. Branch on inhaler fluticasone 2018-07 Yes [id number] 2{puff} Inhale 2 [facility] propionate 0-07 Puffs 2 ity of (FLOVENT 00:00: ([facility] [place] 110 00 times Medical mcg/actuati daily. Branch on inhaler fluticasone 2018-07 Yes [id number] 2{puff} Inhale 2 [facility] propionate 0-07 Puffs 2 ity of (FLOVENT 00:00: ([facility]) [place] [facility]) 110 00 times Medical mcg/actuati daily. Branch on inhaler fluticasone 2018-07 Yes [id number] 2{puff} Inhale 2 [facility] propionate 0-07 Puffs 2 ity of (FLOVENT 00:00: ([facility] [place] 110 [facility] times Medical mcg/actuati daily. Branch on inhaler fluticasone 2018-07 Yes [id number] 2{puff} Inhale 2 [facility] propionate 0-07 Puffs 2 ity of (FLOVENT 00:00: ([facility] [place] times Medical mcg/actuati daily. Branch on inhaler fluticasone 2018-07 Yes [id number] 2{puff} Inhale 2 [facility] propionate 0-07 Puffs 2 ity of (FLOVENT 00:00: (two) [place] HFA) 110 00 times Medical mcg/actuati daily. Branch on inhaler fluticasone 2018-07 Yes [id number] 2{puff} Inhale 2 [facility] propionate 0-07 Puffs 2 ity of (FLOVENT 00:00: ([facility] [place] times Medical mcg/actuati daily. Branch on inhaler fluticasone 2018-07 Yes [id number] 2{puff} Inhale 2 [facility] propionate 0-07 Puffs 2 ity of (FLOVENT 00:00: ([facility]) [place] [facility]) 110 00 times Medical mcg/actuati daily. Branch on inhaler fluticasone 2018-07 Yes [id number] 2{puff} Inhale 2 [facility] propionate 0-07 Puffs 2 ity of (FLOVENT 00:00: ([place] [facility]) 110 00 times Medical mcg/actuati daily. Branch on inhaler fluticasone 2018-07 Yes [id number] 2{puff} Inhale 2 [facility] propionate 0-07 Puffs 2 ity of (FLOVENT 00:00: ([facility]) [place] [facility]) 110 00 times Medical mcg/actuati daily. Branch on inhaler fluticasone 2018-07 Yes [id number] 2{puff} Inhale 2 [facility] propionate 0-07 Puffs 2 ity of (FLOVENT 00:00: ([place] [facility]) 110 00 times Medical mcg/actuati daily. Branch on inhaler fluticasone 2018-07- No [id number] 2{puff} Inhale 2 [facility] propionate 0-07 12-05 Puffs 2 ity o f (FLOVENT 00:00: 00:00 ([facility]) [place] [facility]) 110 00 :00 times Medical mcg/actuati daily. Branch on inhaler fluticasone 2018-07- No [id number] 2{puff} Inhale 2 [facility] propionate 0-07 12-05 Puffs 2 ity o f (FLOVENT 00:00: 00:00 ([facility]) [place] [facility]) 110 00 :00 times Medical mcg/actuati daily. Branch on inhaler fluticasone 2018-07- No [id number] 2{puff} Inhale 2 [facility] propionate 0-07 12-05 Puffs 2 ity o f (FLOVENT 00:00: 00:00 ([facility]) [place] [facility]) 110 00 :00 times Medical mcg/actuati daily. Branch on inhaler lisdexamfet Yes [id number] 40mg Take 1 [facility] amine 40 mg 9-09 capsule by it y of capsule 00:00: mouth [place] 00 every Medical morning. Branch lisdexamfet Yes [id number] 40mg Take 1 [facility] amine 40 mg 9-09 capsule by it y of capsule 00:00: mouth [place] 00 every Medical morning. Branch lisdexamfet 2019-0 Yes [id number] 40mg Take 1 [facility] amine 40 mg 9-09 capsule by it y of capsule 00:00: mouth [place] 00 every Medical morning. Branch lisdexamfet 2019-0 Yes [id number] 40mg Take 1 [facility] amine 40 mg 9-09 capsule by it y of capsule 00:00: mouth [place] 00 every Medical morning. Branch lisdexamfet 2019-0 Yes [id number] 40mg Take 1 [facility] amine 40 mg 9-09 capsule by it y of capsule 00:00: mouth [place] 00 every Medical morning. Branch lisdexamfet 2019-0 Yes [id number] 40mg Take 1 [facility] amine 40 mg 9-09 capsule by it y of capsule 00:00: mouth [place] 00 every Medical morning. Branch lisdexamfet 2019-0 Yes [id number] 40mg Take 1 [facility] amine 40 mg 9-09 capsule by it y of capsule 00:00: mouth [place] 00 every Medical morning. Branch lisdexamfet 2019-0 Yes [id number] 40mg Take 1 [facility] amine 40 mg 9-09 capsule by it y of capsule 00:00: mouth [place] 00 every Medical morning. Branch lisdexamfet 2019-0 Yes [id number] 40mg Take 1 [facility] amine 40 mg 9-09 capsule by it y of capsule 00:00: mouth [place] 00 every Medical morning. Branch lisdexamfet 2019-0 Yes [id number] 40mg Take 1 [facility] amine 40 mg 9-09 capsule by it y of capsule 00:00: mouth [place] 00 every Medical morning. Branch lisdexamfet 2019-0 Yes [id number] 40mg Take 1 [facility] amine 40 mg 9-09 capsule by it y of capsule 00:00: mouth [place] 00 every Medical morning. Branch lisdexamfet 2019-0 Yes [id number] 40mg Take 1 [facility] amine 40 mg 9-09 capsule by it y of capsule 00:00: mouth [place] 00 every Medical morning. Branch lisdexamfet 2019-0 Yes [id number] 40mg Take 1 [facility] amine 40 mg 9-09 capsule by it y of capsule 00:00: mouth [place] 00 every Medical morning. Branch lisdexamfet 2019-0 Yes [id number] 40mg Take 1 [facility] amine 40 mg 9-09 capsule by it y of capsule 00:00: mouth [place] 00 every Medical morning. Branch lisdexamfet 2019-0 Yes [id number] 40mg Take 1 [facility] amine 40 mg 9-09 capsule by it y of capsule 00:00: mouth [place] 00 every Medical morning. Branch lisdexamfet 2019-0 Yes [id number] 40mg Take 1 [facility] amine 40 mg 9-09 capsule by it y of capsule 00:00: mouth [place] 00 every Medical morning. Branch lisdexamfet 2019-0 Yes [id number] 40mg Take 1 [facility] amine 40 mg 9-09 capsule by it y of capsule 00:00: mouth [place] 00 every Medical morning. Branch lisdexamfet 2019-0 Yes [id number] 40mg Take 1 [facility] amine 40 mg 9-09 capsule by it y of capsule 00:00: mouth [place] 00 every Medical morning. Branch lisdexamfet 2019-0 Yes [id number] 40mg Take 1 [facility] amine 40 mg 9-09 capsule by it y of capsule 00:00: mouth [place] 00 every Medical morning. Branch lisdexamfet 2019-0 Yes [id number] 40mg Take 1 [facility] amine 40 mg 9-09 capsule by it y of capsule 00:00: mouth [place] 00 every Medical morning. Branch lisdexamfet 2019-0 Yes [id number] 40mg Take 1 [facility] amine 40 mg 9-09 capsule by it y of capsule 00:00: mouth [place] 00 every Medical morning. Branch lisdexamfet 2019-0 Yes [id number] 40mg Take 1 [facility] amine 40 mg 9-09 capsule by it y of capsule 00:00: mouth [place] 00 every Medical morning. Branch lisdexamfet 2019-0 Yes [id number] 40mg Take 1 [facility] amine 40 mg 9-09 capsule by it y of capsule 00:00: mouth [place] 00 every Medical morning. Branch lisdexamfet 2019-0 Yes [id number] 40mg Take 1 [facility] amine 40 mg 9-09 capsule by it y of capsule 00:00: mouth [place] 00 every Medical morning. Branch lisdexamfet 2019-0 Yes [id number] 40mg Take 1 [facility] amine 40 mg 9-09 capsule by it y of capsule 00:00: mouth [place] 00 every Medical morning. Branch lisdexamfet 2019-0 Yes [id number] 40mg Take 1 [facility] amine 40 mg 9-09 capsule by it y of capsule 00:00: mouth [place] 00 every Medical morning. Branch lisdexamfet 2019-0 Yes [id number] 40mg Take 1 [facility] amine 40 mg 9-09 capsule by it y of capsule 00:00: mouth [place] 00 every Medical morning. Branch lisdexamfet 2019-0 Yes [id number] 40mg Take 1 [facility] amine 40 mg 9-09 capsule by it y of capsule 00:00: mouth [place] 00 every Medical morning. Branch lisdexamfet 2019-0 Yes [id number] 40mg Take 1 [facility] amine 40 mg 9-09 capsule by it y of capsule 00:00: mouth [place] 00 every Medical morning. Branch lisdexamfet 2019-0 Yes [id number] 40mg Take 1 [facility] amine 40 mg 9-09 capsule by it y of capsule 00:00: mouth [place] 00 every Medical morning. Branch lisdexamfet 2019-0 Yes [id number] 40mg Take 1 [facility] amine 40 mg 9-09 capsule by it y of capsule 00:00: mouth [place] 00 every Medical morning. Branch lisdexamfet 2019-0 Yes [id number] 40mg Take 1 [facility] amine 40 mg 9-09 capsule by it y of capsule 00:00: mouth [place] 00 every Medical morning. Branch lisdexamfet 2019-0 Yes [id number] 40mg Take 1 [facility] amine 40 mg 9-09 capsule by it y of capsule 00:00: mouth [place] 00 every Medical morning. Branch lisdexamfet 2019-0 Yes [id number] 40mg Take 1 [facility] 40 mg 9-09 capsule by [facility] of capsule 00:00: mouth [place] 00 every Medical morning. Branch lisdexamfet 2019-0 Yes [id number] 40mg Take 1 [facility] amine 40 mg 9-09 capsule by [facility] y of capsule 00:00: mouth [place] 00 every Medical morning. [facility] lisdexamfet 2019-0 Yes [id number] 40mg Take 1 [facility] 40 mg 9-09 capsule by [facility] y of capsule 00:00: mouth [place] 00 every Medical morning. [facility] lisdexamfet 2019-0 Yes [id number] 40mg Take 1 [facility] amine 40 mg 9-09 capsule by it y of capsule 00:00: mouth [place] 00 every Medical morning. Branch lisdexamfet 2019-0 Yes [id number] 40mg Take 1 [facility] 40 mg 9-09 capsule by [facility] y of capsule 00:00: mouth [place] 00 every Medical morning. [facility] lisdexamfet 2019-0 Yes [id number] 40mg Take 1 [facility] amine 40 mg 9-09 capsule by it y of capsule 00:00: mouth [place] 00 every Medical morning. [facility] lisdexamfet 2019-0 Yes [id number] 40mg Take 1 [facility] 40 mg 9-09 capsule by [facility] y of capsule 00:00: mouth [place] 00 every Medical morning. [facility] lisdexamfet 2019-0 Yes [id number] 40mg Take 1 [facility] amine 40 mg 9-09 capsule by [facility] y of capsule 00:00: mouth [place] 00 every Medical morning. [facility] lisdexamfet 2019-0 Yes [id number] 40mg Take 1 [facility] 40 mg 9-09 capsule by [facility] y of capsule 00:00: mouth [place] 00 every Medical morning. [facility] lisdexamfet 2019-0 Yes [id number] 40mg Take 1 [facility] 40 mg 9-09 capsule by it y of capsule 00:00: mouth [place] 00 every Medical morning. [facility] lisdexamfet 2019-0 Yes [id number] 40mg Take 1 [facility] amine 40 mg 9-09 capsule by [facility] y of capsule 00:00: mouth [place] 00 every Medical morning. [facility] lisdexamfet 2019-0 Yes [id number] 40mg Take 1 [facility] 40 mg 9-09 capsule by [facility] y of capsule 00:00: mouth [place] 00 every Medical morning. [facility] lisdexamfet 2019-0 Yes [id number] 40mg Take 1 [facility] 40 mg 9-09 capsule by [facility] y of capsule 00:00: mouth [place] 00 every Medical morning. [facility] lisdexamfet 2019-0 Yes [id number] 40mg Take 1 [facility] 40 mg 9-09 capsule by [facility] y of capsule 00:00: mouth [place] 00 every Medical morning. [facility] lisdexamfet 2019-0 Yes [id number] 40mg Take 1 [facility] 40 mg 9-09 capsule by [facility] y of capsule 00:00: mouth [place] 00 every Medical morning. [facility] lisdexamfet 2019-0 Yes [id number] 40mg Take 1 [facility] 40 mg 9-09 capsule by [facility] y of capsule 00:00: mouth [place] 00 every Medical morning. [facility] lisdexamfet 2019-0 Yes [id number] 40mg Take 1 [facility] amine 40 mg 9-09 capsule by [facility] y of capsule 00:00: mouth [place] 00 every Medical morning. [facility] lisdexamfet 2019-0 Yes [id number] 40mg Take 1 [facility] 40 mg 9-09 capsule by [facility] y of capsule 00:00: mouth [place] 00 every Medical morning. [facility] lisdexamfet 2019-0 Yes [id number] 40mg Take 1 [facility] 40 mg 9-09 capsule by [facility] y of capsule 00:00: mouth [place] 00 every Medical morning. [facility] lisdexamfet 2019-0 Yes [id number] 40mg Take 1 [facility] 40 mg 9-09 capsule by [facility] y of capsule 00:00: mouth [place] 00 every Medical morning. [facility] lisdexamfet 2019-0 Yes [id number] 40mg Take 1 [facility] 40 mg 9-09 capsule by [facility] y of capsule 00:00: mouth [place] 00 every Medical morning. [facility] lisdexamfet 2019-0 Yes [id number] 40mg Take 1 [facility] 40 mg 9-09 capsule by [facility] y of capsule 00:00: mouth [place] 00 every Medical morning. [facility] lisdexamfet 2019-0 Yes [id number] 40mg Take 1 [facility] 40 mg 9-09 capsule by [facility] y of capsule 00:00: mouth [place] 00 every Medical morning. [facility] lisdexamfet 2019-0 Yes [id number] 40mg Take 1 [facility] 40 mg 9-09 capsule by [facility] y of capsule 00:00: mouth [place] 00 every Medical morning. [facility] lisdexamfet 2019-0 Yes [id number] 40mg Take 1 [facility] 40 mg 9-09 capsule by [facility] y of capsule 00:00: mouth [place] 00 every Medical morning. [facility] lisdexamfet 2019-0 Yes [id number] 40mg Take 1 [facility] 40 mg 9-09 capsule by [facility] y of capsule 00:00: mouth [place] 00 every Medical morning. [facility] lisdexamfet 2019-0 Yes [id number] 40mg Take 1 [facility] 40 mg 9-09 capsule by [facility] y of capsule 00:00: mouth [place] 00 every Medical morning. [facility] lisdexamfet 2019-0 Yes [id number] 40mg Take 1 [facility] 40 mg 9-09 capsule by [facility] y of capsule 00:00: mouth [place] 00 every Medical morning. [facility] lisdexamfet 2019-0 Yes [id number] 40mg Take 1 [facility] 40 mg 9-09 capsule by [facility] y of capsule 00:00: mouth [place] 00 every Medical morning. [facility] lisdexamfet 2019-0 Yes [id number] 40mg Take 1 [facility] 40 mg 9-09 capsule by [facility] y of capsule 00:00: mouth [place] 00 every Medical morning. [facility] lisdexamfet 2019-0 Yes [id number] 40mg Take 1 [facility] 40 mg 9-09 capsule by [facility] y of capsule 00:00: mouth [place] 00 every Medical morning. [facility] lisdexamfet 2019-0 Yes [id number] 40mg Take 1 [facility] 40 mg 9-09 capsule by [facility] y of capsule 00:00: mouth [place] 00 every Medical morning. [facility] lisdexamfet 2019-0 Yes [id number] 40mg Take 1 [facility] 40 mg 9-09 capsule by [facility] of capsule 00:00: mouth [place] 00 every Medical morning. [facility] lisdexamfet 2019-0 Yes [id number] 40mg Take 1 [facility] 40 mg 9-09 capsule by [facility] of capsule 00:00: mouth [place] 00 every Medical morning. [facility] lisdexamfet 2019-0 Yes [id number] 40mg Take 1 [facility] 40 mg 9-09 capsule by [facility] y of capsule 00:00: mouth [place] 00 every Medical morning. [facility] lisdexamfet 2019-0 Yes [id number] 40mg Take 1 [facility] 40 mg 9-09 capsule by [facility] y of capsule 00:00: mouth [place] 00 every Medical morning. [facility] lisdexamfet 2019-0 Yes [id number] 40mg Take 1 [facility] 40 mg 9-09 capsule by [facility] y of capsule 00:00: mouth [place] 00 every Medical morning. [facility] lisdexamfet 2019-0 Yes [id number] 40mg Take 1 [facility] 40 mg 9-09 capsule by [facility] y of capsule 00:00: mouth [place] 00 every Medical morning. [facility] lisdexamfet 2019-0 Yes [id number] 40mg Take 1 [facility] 40 mg 9-09 capsule by [facility] y of capsule 00:00: mouth [place] 00 every Medical morning. [facility] lisdexamfet 2019-0 Yes [id number] 40mg Take 1 [facility] 40 mg 9-09 capsule by [facility] y of capsule 00:00: mouth [place] 00 every Medical morning. [facility] lisdexamfet 2019-0 Yes [id number] 40mg Take 1 [facility] 40 mg 9-09 capsule by [facility] y of capsule 00:00: mouth [place] 00 every Medical morning. [facility] lisdexamfet 2019-0 Yes [id number] 40mg Take 1 [facility] 40 mg 9-09 capsule by [facility] y of capsule 00:00: mouth [place] 00 every Medical morning. [facility] lisdexamfet 2019-0 Yes [id number] 40mg Take 1 [facility] 40 mg 9-09 capsule by [facility] of capsule 00:00: mouth [place] 00 every Medical morning. [facility] lisdexamfet 2019-0 Yes [id number] 40mg Take 1 [facility] 40 mg 9-09 capsule by [facility] y of capsule 00:00: mouth [place] 00 every Medical morning. [facility] lisdexamfet 2019-0 Yes [id number] 40mg Take 1 [facility] 40 mg 9-09 capsule by it y of capsule 00:00: mouth [place] 00 every Medical morning. [facility] lisdexamfet 2019-0 Yes [id number] 40mg Take 1 [facility] 40 mg 9-09 capsule by it y of capsule 00:00: mouth [place] 00 every Medical morning. [facility] lisdexamfet 2019-0 Yes [id number] 40mg Take 1 [facility] 40 mg 9-09 capsule by it y of capsule 00:00: mouth [place] 00 every Medical morning. [facility] lisdexamfet 2019-0 Yes [id number] 40mg Take 1 [facility] 40 mg 9-09 capsule by it y of capsule 00:00: mouth [place] 00 every Medical morning. [facility] lisdexamfet 2018-0 Yes [id number] 40mg Take 1 [facility] 40 mg 9-09 capsule by it y of capsule 00:00: mouth [place] 00 every Medical morning. [facility] lisdexamfet 2019-0 Yes [id number] 40mg Take 1 [facility] 40 mg 9-09 capsule by it y of capsule 00:00: mouth [place] 00 every Medical morning. [facility] lisdexamfet 2019-0 Yes [id number] 40mg Take 1 [facility] 40 mg 9-09 capsule by it y of capsule 00:00: mouth [place] 00 every Medical morning. [facility] lisdexamfet 2019-0 Yes [id number] 40mg Take 1 [facility] 40 mg 9-09 capsule by [facility] y of capsule 00:00: mouth [place] 00 every Medical morning. [facility] lisdexamfet 2019-0 Yes [id number] 40mg Take 1 [facility] 40 mg 9-09 capsule by [facility] y of capsule 00:00: mouth [place] 00 every Medical morning. [facility] lisdexamfet 2019-0 Yes [id number] 40mg Take 1 [facility] 40 mg 9-09 capsule by it y of capsule 00:00: mouth [place] 00 every Medical morning. [facility] lisdexamfet 2019-0 Yes [id number] 40mg Take 1 [facility] 40 mg 9-09 capsule by it y of capsule 00:00: mouth [place] 00 every Medical morning. [facility] lisdexamfet 2019-0 Yes [id number] 40mg Take 1 [facility] 40 mg 9-09 capsule by it y of capsule 00:00: mouth [place] 00 every Medical morning. [facility] lisdexamfet 2019-0 Yes [id number] 40mg Take 1 [facility] 40 mg 9-09 capsule by it y of capsule 00:00: mouth [place] 00 every Medical morning. [facility] lisdexamfet 2019-0 Yes [id number] 40mg Take 1 [facility] 40 mg 9-09 capsule by it y of capsule 00:00: mouth [place] 00 every Medical morning. [facility] lisdexamfet 2019-0 Yes [id number] 40mg Take 1 [facility] 40 mg 9-09 capsule by it y of capsule 00:00: mouth [place] 00 every Medical morning. [facility] lisdexamfet 2019-0 Yes [id number] 40mg Take 1 [facility] 40 mg 9-09 capsule by it y of capsule 00:00: mouth [place] 00 every Medical morning. [facility] lisdexamfet 2019-0 Yes [id number] 40mg Take 1 [facility] 40 mg 9-09 capsule by it y of capsule 00:00: mouth [place] 00 every Medical morning. [facility] lisdexamfet 2019-0 Yes [id number] 40mg Take 1 [facility] 40 mg 9-09 capsule by it y of capsule 00:00: mouth [place] 00 every Medical morning. [facility] lisdexamfet 2019-0 Yes [id number] 40mg Take 1 [facility] 40 mg 9-09 capsule by it y of capsule 00:00: mouth [place] 00 every Medical morning. Branch lisdexamfet 2019-0 Yes [id number] 40mg Take 1 [facility] 40 mg 9-09 capsule by it y of capsule 00:00: mouth [place] 00 every Medical morning. [facility] lisdexamfet 2019-0 Yes [id number] 40mg Take 1 [facility] 40 mg 9-09 capsule by it y of capsule 00:00: mouth [place] 00 every Medical morning. [facility] lisdexamfet 2019-0 Yes [id number] 40mg Take 1 [facility] 40 mg 9-09 capsule by it y of capsule 00:00: mouth [place] 00 every Medical morning. [facility] lisdexamfet 2019-0 Yes [id number] 40mg Take 1 [facility] 40 mg 9-09 capsule by it y of capsule 00:00: mouth [place] 00 every Medical morning. [facility] lisdexamfet 2019-0 Yes [id number] 40mg Take 1 [facility] 40 mg 9-09 capsule by it y of capsule 00:00: mouth [place] 00 every Medical morning. [facility] lisdexamfet 2019-0 Yes [id number] 40mg Take 1 [facility] 40 mg 9-09 capsule by it y of capsule 00:00: mouth [place] 00 every Medical morning. [facility] lisdexamfet 2019-0 Yes [id number] 40mg Take 1 [facility] 40 mg 9-09 capsule by it y of capsule 00:00: mouth [place] 00 every Medical morning. [facility] lisdexamfet 2019-0 Yes [id number] 40mg Take 1 [facility] 40 mg 9-09 capsule by it y of capsule 00:00: mouth [place] 00 every Medical morning. [facility] lisdexamfet 2019-0 Yes [id number] 40mg Take 1 [facility] 40 mg 9-09 capsule by it y of capsule 00:00: mouth [place] 00 every Medical morning. Branch lisdexamfet 2019-0 Yes [id number] 40mg Take 1 [facility] 40 mg 9-09 capsule by it y of capsule 00:00: mouth [place] 00 every Medical morning. [facility] lisdexamfet 2019-0 Yes [id number] 40mg Take 1 [facility] amine 40 mg 9-09 capsule by it y of capsule 00:00: mouth [place] 00 every Medical morning. Branch lisdexamfet 2019-0 Yes [id number] 40mg Take 1 [facility] amine 40 mg 9-09 capsule by it y of capsule 00:00: mouth [place] 00 every Medical morning. Branch lisdexamfet 2019-0 Yes [id number] 40mg Take 1 [facility] amine 40 mg 9-09 capsule by it y of capsule 00:00: mouth [place] 00 every Medical morning. Branch lisdexamfet 2019-0 Yes [id number] 40mg Take 1 [facility] 40 mg 9-09 capsule by it y of capsule 00:00: mouth [place] 00 every Medical morning. [facility] lisdexamfet 2019-0 Yes [id number] 40mg Take 1 [facility] 40 mg 9-09 capsule by it y of capsule 00:00: mouth [place] 00 every Medical morning. [facility] lisdexamfet 2019-0 Yes [id number] 40mg Take 1 [facility] 40 mg 9-09 capsule by it y of capsule 00:00: mouth [place] 00 every Medical morning. [facility] lisdexamfet 2019-0 Yes [id number] 40mg Take 1 [facility] 40 mg 9-09 capsule by it y of capsule 00:00: mouth [place] 00 every Medical morning. Branch lisdexamfet 2019-0 Yes [id number] 40mg Take 1 [facility] 40 mg 9-09 capsule by it y of capsule 00:00: mouth [place] 00 every Medical morning. Branch lisdexamfet 2019-0 Yes [id number] 40mg Take 1 [facility] amine 40 mg 9-09 capsule by it y of capsule 00:00: mouth [place] 00 every Medical morning. Branch lisdexamfet 2019-0 Yes [id number] 40mg Take 1 [facility] 40 mg 9-09 capsule by it y of capsule 00:00: mouth [place] 00 every Medical morning. Branch lisdexamfet 2019-0 Yes [id number] 40mg Take 1 [facility] 40 mg 9-09 capsule by it y of capsule 00:00: mouth [place] 00 every Medical morning. Branch lisdexamfet 2019-0 Yes [id number] 40mg Take 1 [facility] 40 mg 9-09 capsule by it y of capsule 00:00: mouth [place] 00 every Medical morning. [facility] lisdexamfet 2019-0 Yes [id number] 40mg Take 1 [facility] 40 mg 9-09 capsule by it y of capsule 00:00: mouth [place] 00 every Medical morning. Branch lisdexamfet 2019-0 Yes [id number] 40mg Take 1 [facility] 40 mg 9-09 capsule by it y of capsule 00:00: mouth [place] 00 every Medical morning. Branch lisdexamfet 2019-0 Yes [id number] 40mg Take 1 [facility] 40 mg 9-09 capsule by it y of capsule 00:00: mouth [place] 00 every Medical morning. Branch lisdexamfet 2019-0 Yes [id number] 40mg Take 1 [facility] 40 mg 9-09 capsule by it y of capsule 00:00: mouth [place] 00 every Medical morning. Branch lisdexamfet 2019-0 Yes [id number] 40mg Take 1 [facility] 40 mg 9-09 capsule by it y of capsule 00:00: mouth [place] 00 every Medical morning. Branch lisdexamfet 2019-0 Yes [id number] 40mg Take 1 [facility] 40 mg 9-09 capsule by it y of capsule 00:00: mouth [place] 00 every Medical morning. [facility] lisdexamfet 2019-0 Yes [id number] 40mg Take 1 [facility] 40 mg 9-09 capsule by it y of capsule 00:00: mouth [place] 00 every Medical morning. Branch lisdexamfet 2019-0 Yes [id number] 40mg Take 1 [facility] 40 mg 9-09 capsule by it y of capsule 00:00: mouth [place] 00 every Medical morning. [facility] lisdexamfet 2019-0 Yes [id number] 40mg Take 1 [facility] 40 mg 9-09 capsule by it y of capsule 00:00: mouth [place] 00 every Medical morning. Branch lisdexamfet 2019-0 Yes [id number] 40mg Take 1 [facility] 40 mg 9-09 capsule by it y of capsule 00:00: mouth [place] 00 every Medical morning. Branch lisdexamfet 2019-0 Yes [id number] 40mg Take 1 [facility] 40 mg 9-09 capsule by it y of capsule 00:00: mouth [place] 00 every Medical morning. Branch lisdexamfet 2019-0 Yes [id number] 40mg Take 1 [facility] 40 mg 9-09 capsule by it y of capsule 00:00: mouth [place] 00 every Medical morning. [facility] lisdexamfet 2019-0 Yes [id number] 40mg Take 1 [facility] 40 mg 9-09 capsule by it y of capsule 00:00: mouth [place] 00 every Medical morning. Branch lisdexamfet 2019-0 Yes [id number] 40mg Take 1 [facility] 40 mg 9-09 capsule by it y of capsule 00:00: mouth [place] 00 every Medical morning. Branch lisdexamfet 2019-0 Yes [id number] 40mg Take 1 [facility] 40 mg 9-09 capsule by it y of capsule 00:00: mouth [place] 00 every Medical morning. [facility] lisdexamfet 2019-0 Yes [id number] 40mg Take 1 [facility] 40 mg 9-09 capsule by it y of capsule 00:00: mouth [place] 00 every Medical morning. Branch lisdexamfet 2019-0 Yes [id number] 40mg Take 1 [facility] 40 mg 9-09 capsule by it y of capsule 00:00: mouth [place] 00 every Medical morning. Branch lisdexamfet 2019-0 Yes [id number] 40mg Take 1 [facility] 40 mg 9-09 capsule by it y of capsule 00:00: mouth [place] 00 every Medical morning. Branch lisdexamfet 2019-0 Yes [id number] 40mg Take 1 [facility] 40 mg 9-09 capsule by it y of capsule 00:00: mouth [place] 00 every Medical morning. Branch lisdexamfet 2019-0 Yes [id number] 40mg Take 1 [facility] 40 mg 9-09 capsule by it y of capsule 00:00: mouth [place] 00 every Medical morning. Branch lisdexamfet 2019-0 Yes [id number] 40mg Take 1 [facility] 40 mg 9-09 capsule by it y of capsule 00:00: mouth [place] 00 every Medical morning. Branch lisdexamfet 2019-0 Yes [id number] 40mg Take 1 [facility] 40 mg 9-09 capsule by it y of capsule 00:00: mouth [place] 00 every Medical morning. Branch lisdexamfet 2019-0 Yes [id number] 40mg Take 1 [facility] 40 mg 9-09 capsule by it y of capsule 00:00: mouth [place] 00 every Medical morning. Branch lisdexamfet 2019-0 Yes [id number] 40mg Take 1 [facility] 40 mg 9-09 capsule by it y of capsule 00:00: mouth [place] 00 every Medical morning. Branch lisdexamfet 2018-0 Yes [id number] 40mg Take 1 [facility] 40 mg 9-09 capsule by it y of capsule 00:00: mouth [place] 00 every Medical morning. Branch lisdexamfet 2019-0 Yes [id number] 40mg Take 1 [facility] 40 mg 9-09 capsule by it y of capsule 00:00: mouth [place] 00 every Medical morning. Branch lisdexamfet 2019-0 Yes [id number] 40mg Take 1 [facility] 40 mg 9-09 capsule by it y of capsule 00:00: mouth [place] 00 every Medical morning. Branch lisdexamfet 2019-0 Yes [id number] 40mg Take 1 [facility] 40 mg 9-09 capsule by it y of capsule 00:00: mouth [place] 00 every Medical morning. Branch lisdexamfet 2019-0 Yes [id number] 40mg Take 1 [facility] 40 mg 9-09 capsule by it y of capsule 00:00: mouth [place] 00 every Medical morning. Branch lisdexamfet 2019-0 Yes [id number] 40mg Take 1 [facility] 40 mg 9-09 capsule by it y of capsule 00:00: mouth [place] 00 every Medical morning. Branch lisdexamfet 2019-0 Yes [id number] 40mg Take 1 [facility] 40 mg 9-09 capsule by it y of capsule 00:00: mouth [place] 00 every Medical morning. Branch lisdexamfet 2019-0 Yes [id number] 40mg Take 1 [facility] 40 mg 9-09 capsule by it y of capsule 00:00: mouth [place] 00 every Medical morning. Branch lisdexamfet 2019-0 Yes [id number] 40mg Take 1 [facility] 40 mg 9-09 capsule by it y of capsule 00:00: mouth [place] 00 every Medical morning. Branch lisdexamfet 2019-0 Yes [id number] 40mg Take 1 [facility] amine 40 mg 9-09 capsule by it y of capsule 00:00: mouth [place] 00 every Medical morning. Branch lisdexamfet 2019-0 Yes [id number] 40mg Take 1 [facility] amine 40 mg 9-09 capsule by it y of capsule 00:00: mouth [place] 00 every Medical morning. Branch lisdexamfet 2019-0 Yes [id number] 40mg Take 1 [facility] amine 40 mg 9-09 capsule by it y of capsule 00:00: mouth [place] 00 every Medical morning. Branch lisdexamfet 2019-0 Yes [id number] 40mg Take 1 [facility] amine 40 mg 9-09 capsule by it y of capsule 00:00: mouth [place] 00 every Medical morning. Branch lisdexamfet 2019-0 Yes [id number] 40mg Take 1 [facility] amine 40 mg 9-09 capsule by it y of capsule 00:00: mouth [place] 00 every Medical morning. Branch lisdexamfet 2019-0 Yes [id number] 40mg Take 1 [facility] 40 mg 9-09 capsule by it y of capsule 00:00: mouth [place] 00 every Medical morning. Branch lisdexamfet 2019-0 Yes [id number] 40mg Take 1 [facility] 40 mg 9-09 capsule by it y of capsule 00:00: mouth [place] 00 every Medical morning. Branch lisdexamfet 2019-0 Yes [id number] 40mg Take 1 [facility] 40 mg 9-09 capsule by it y of capsule 00:00: mouth [place] 00 every Medical morning. Branch lisdexamfet 2019-0 Yes [id number] 40mg Take 1 [facility] 40 mg 9-09 capsule by it y of capsule 00:00: mouth [place] 00 every Medical morning. Branch lisdexamfet 2019-0 Yes [id number] 40mg Take 1 [facility] 40 mg 9-09 capsule by it y of capsule 00:00: mouth [place] 00 every Medical morning. Branch lisdexamfet 2019-0 Yes [id number] 40mg Take 1 [facility] 40 mg 9-09 capsule by it y of capsule 00:00: mouth [place] 00 every Medical morning. Branch lisdexamfet 2019-0 Yes [id number] 40mg Take 1 [facility] 40 mg 9-09 capsule by it y of capsule 00:00: mouth [place] 00 every Medical morning. Branch lisdexamfet 2019-0 Yes [id number] 40mg Take 1 [facility] 40 mg 9-09 capsule by it y of capsule 00:00: mouth [place] 00 every Medical morning. Branch lisdexamfet 2019-0 Yes [id number] 40mg Take 1 [facility] 40 mg 9-09 capsule by it y of capsule 00:00: mouth [place] 00 every Medical morning. Branch lisdexamfet 2019-0 Yes [id number] 40mg Take 1 [facility] amine 40 mg 9-09 capsule by it y of capsule 00:00: mouth [place] 00 every Medical morning. Branch lisdexamfet 2019-0 Yes [id number] 40mg Take 1 [facility] amine 40 mg 9-09 capsule by it y of capsule 00:00: mouth [place] 00 every Medical morning. Branch lisdexamfet 2019-0 Yes [id number] 40mg Take 1 [facility] amine 40 mg 9-09 capsule by it y of capsule 00:00: mouth [place] 00 every Medical morning. Branch lisdexamfet 2019-0 Yes [id number] 40mg Take 1 [facility] 40 mg 9-09 capsule by it y of capsule 00:00: mouth [place] 00 every Medical morning. Branch lisdexamfet 2019-0 Yes [id number] 40mg Take 1 [facility] 40 mg 9-09 capsule by it y of capsule 00:00: mouth [place] 00 every Medical morning. Branch lisdexamfet 2019-0 Yes [id number] 40mg Take 1 [facility] amine 40 mg 9-09 capsule by it y of capsule 00:00: mouth [place] 00 every Medical morning. Branch lisdexamfet 2019-0 Yes [id number] 40mg Take 1 [facility] amine 40 mg 9-09 capsule by it y of capsule 00:00: mouth [place] 00 every Medical morning. Branch XOPENEX HFA 2019-0 Yes [id number] INHALE 2 [facility] 45 9-06 PUFFS BY [facility]y of mcg/actuati 00:00: MOUTH [place] on inhaler 00 EVERY 6 Medica l HOURS Branch NEEDED BEFORE EXERCISE OR FOR WHEEZING/S HORTNESS OF BREATH. XOPENEX HFA Yes [id number] INHALE 2 [facility] 45 9-06 PUFFS BY ity of mcg/actuati 00:00: MOUTH [place] on inhaler 00 EVERY 6 Medica l HOURS Branch NEEDED BEFORE EXERCISE OR FOR WHEEZING/S HORTNESS OF BREATH. XOPENEX HFA Yes [id number] INHALE 2 [facility] 45 9-06 PUFFS BY ity of mcg/actuati 00:00: MOUTH [place] on inhaler 00 EVERY 6 Medica l HOURS Branch NEEDED BEFORE EXERCISE OR FOR WHEEZING/S HORTNESS OF BREATH. XOPENEX HFA Yes [id number] INHALE 2 [facility] 45 9-05 PUFFS BY ity of mcg/actuati 00:00: MOUTH [place] on inhaler 00 EVERY 6 Medica l HOURS Branch NEEDED BEFORE EXERCISE OR FOR WHEEZING/S HORTNESS OF BREATH. XOPENEX HFA 2019- No [id number] INHALE 2 [facility] 45 9-05 09-06 PUFFS BY ity of mcg/actuati 00:00: 00:00 MOUTH [place] on inhaler 00 :00 EVERY 6 Medica l HOURS Branch NEEDED BEFORE EXERCISE OR FOR WHEEZING/S HORTNESS OF BREATH. XOPENEX HFA Yes [id number] INHALE 2 [facility] 45 8-15 PUFFS BY ity of mcg/actuati 00:00: MOUTH [place] on inhaler 00 EVERY 6 Medica l HOURS Branch NEEDED BEFORE EXERCISE OR FOR WHEEZING, SHORTNESS OF BREATH. XOPENEX HFA Yes [id number] INHALE 2 [facility] 45 8-15 PUFFS BY ity of mcg/actuati 00:00: MOUTH [place] on inhaler 00 EVERY 6 Medica l HOURS Branch NEEDED BEFORE EXERCISE OR FOR WHEEZING, SHORTNESS OF BREATH. XOPENEX HFA Yes [id number] INHALE 2 [facility] 45 8-15 PUFFS BY ity of mcg/actuati 00:00: MOUTH [place] on inhaler 00 EVERY 6 Medica l HOURS Branch NEEDED BEFORE EXERCISE OR FOR WHEEZING, SHORTNESS OF BREATH. XOPENEX HFA Yes [id number] INHALE 2 [facility] 45 8-15 PUFFS BY ity of mcg/actuati 00:00: MOUTH [place] on inhaler 00 EVERY 6 Medica l HOURS Branch NEEDED BEFORE EXERCISE OR FOR WHEEZING, SHORTNESS OF BREATH. XOPENEX HFA 2019- No [id number] INHALE 2 [facility] 45 8-15 09-04 PUFFS BY ity of mcg/actuati 00:00: 00:00 MOUTH [place] on inhaler 00 :00 EVERY 6 Medica l HOURS Branch NEEDED BEFORE EXERCISE OR FOR WHEEZING, SHORTNESS OF BREATH. amantadine Yes [id number] 200mg Take 2 [facility] HCl 100 mg 8-14 capsules it[facility] o f capsule 00:00: by mouth 2 [place] 00 (two) Medical times Branch daily. SERTraline Yes [id number] 25mg Take 1 [facility] 25 mg 8-14 tablet by ity of tablet 00:00: mouth [place] 00 daily. Medical Branch ARIPiprazol Yes [id number] 2mg Take 1 [facility] e (ABILIFY) 8-14 tablet by ity of 2 mg tablet 00:00: mouth [place] 00 daily. Medical Branch busPIRone Yes [id number] 15mg Take 1 [facility] n[facility] 15 mg 8-14 tablet by ity of tablet 00:00: mouth 2 [place] 00 (two) Medical times Branch daily. risperiDONE Yes [id number] .25mg Take 1-2 [facility] (RISPERDAL) 8-14 tablets by it y of 0.25 mg 00:00: mouth 2 [place] tablet 00 (two) Medical times Branch daily. Take 2 tablets in the morning and 1 tablet at night time amantadine Yes [id number] 200mg Take 2 [facility] HCl 100 mg 8-14 capsules it[facility] o f capsule 00:00: by mouth 2 [place] 00 (two) Medical times Branch daily. SERTraline 2018- Yes [id number] 25mg Take 1 [facility] 25 mg 8-14 tablet by ity of tablet 00:00: mouth [place] 00 daily. Medical Branch ARIPiprazol Yes [id number] 2mg Take 1 [facility] e (ABILIFY) 8-14 tablet by ity of 2 mg tablet 00:00: mouth [place] 00 daily. Medical Branch busPIRone Yes [id number] 15mg Take 1 [facility] nivers 15 mg 8-14 tablet by ity of tablet 00:00: mouth 2 [place] 00 (two) Medical times Branch daily. risperiDONE 2019- Yes [id number] .25mg Take 1-2 [facility] (RISPERDAL) 8-14 tablets by it y of 0.25 mg 00:00: mouth 2 [place] tablet 00 (two) Medical times Branch daily. Take 2 tablets in the morning and 1 tablet at night time amantadine 2018- Yes [id number] 200mg Take 2 [facility] HCl 100 mg 8-14 capsules ity o f capsule 00:00: [place] mouth 2 [place] (two) Medical times Branch daily. SERTraline 2018- Yes [id number] 25mg Take 1 [facility] nivers 25 mg 8-14 tablet by ity of tablet 00:00: mouth [place] 00 daily. Medical Branch ARIPiprazol Yes [id number] 2mg Take 1 [facility] e (ABILIFY) 8-14 tablet by ity of 2 mg tablet 00:00: mouth [place] 00 daily. Medical Branch busPIRone Yes [id number] 15mg Take 1 U nivers 15 mg 8-14 tablet by ity of tablet 00:00: mouth 2 [place] 00 (two) Medical times Branch daily. risperiDONE 2018- Yes [id number] .25mg Take 1-2 [facility] (RISPERDAL) 8-14 tablets by it y of 0.25 mg 00:00: mouth 2 [place] tablet 00 (two) Medical times Branch daily. Take 2 tablets in the morning and 1 tablet at night time amantadine 2018- Yes [id number] 200mg Take 2 [facility] HCl 100 mg 8-14 capsules ity o f capsule 00:00: by mouth 2 [place] 00 (two) Medical times Branch daily. SERTraline 2018- Yes [id number] 25mg Take 1 [facility] n[facility] 25 mg 8-14 tablet by ity of tablet 00:00: mouth [place] 00 daily. Medical Branch ARIPiprazol Yes [id number] 2mg Take 1 [facility] e (ABILIFY) 8-14 tablet by ity of 2 mg tablet 00:00: mouth [place] 00 daily. Medical Branch busPIRone Yes [id number] 15mg Take 1 [facility] nivers 15 mg 8-14 tablet by ity of tablet 00:00: mouth 2 [place] 00 (two) Medical times Branch daily. risperiDONE 2019- Yes [id number] .25mg Take 1-2 [facility] (RISPERDAL) 8-14 tablets by it y of 0.25 mg 00:00: mouth 2 [place] tablet 00 (two) Medical times Branch daily. Take 2 tablets in the morning and 1 tablet at night time amantadine 2019- Yes [id number] 200mg Take 2 [facility] HCl 100 mg 8-14 capsules ity o f capsule 00:00: by mouth 2 [place] 00 (two) Medical times Branch daily. SERTraline 2019- Yes [id number] 25mg Take 1 [facility] 25 mg 8-14 tablet by ity of tablet 00:00: mouth [place] 00 daily. Medical Branch ARIPiprazol Yes [id number] 2mg Take 1 [facility] e (ABILIFY) 8-14 tablet by ity of 2 mg tablet 00:00: mouth [place] 00 daily. Medical Branch busPIRone Yes [id number] 15mg Take 1 [facility] nivers 15 mg 8-14 tablet by ity of tablet 00:00: mouth 2 [place] 00 (two) Medical times Branch daily. risperiDONE 2018- Yes [id number] .25mg Take 1-2 [facility] (RISPERDAL) 8-14 tablets by it y of 0.25 mg 00:00: mouth 2 [place] tablet 00 (two) Medical times Branch daily. Take 2 tablets in the morning and 1 tablet at night time amantadine 2018- Yes [id number] 200mg Take 2 [facility] HCl 100 mg 8-14 capsules it[facility] o f capsule 00:00: by mouth 2 [place] 00 (two) Medical times Branch daily. SERTraline 2019- Yes [id number] 25mg Take 1 [facility] 25 mg 8-14 tablet by ity of tablet 00:00: mouth [place] 00 daily. Medical Branch ARIPiprazol Yes [id number] 2mg Take 1 [facility] e (ABILIFY) 8-14 tablet by ity of 2 mg tablet 00:00: mouth [place] 00 daily. Medical Branch busPIRone Yes [id number] 15mg Take 1 [facility] 15 mg 8-14 tablet by ity of tablet 00:00: mouth 2 [place] 00 (two) Medical times Branch daily. risperiDONE 2019- Yes [id number] .25mg Take 1-2 [facility] (RISPERDAL) 8-14 tablets by it y of 0.25 mg 00:00: mouth 2 [place] tablet 00 (two) Medical times Branch daily. Take 2 tablets in the morning and 1 tablet at night time amantadine 2018- Yes [id number] 200mg Take 2 [facility] HCl 100 mg 8-14 capsules ity o f capsule 00:00: by mouth 2 [place] 00 (two) Medical times Branch daily. SERTraline 2018- Yes [id number] 25mg Take 1 [facility] n[facility] 25 mg 8-14 tablet by ity of tablet 00:00: mouth [place] 00 daily. Medical Branch ARIPiprazol Yes [id number] 2mg Take 1 [facility] e (ABILIFY) 8-14 tablet by ity of 2 mg tablet 00:00: mouth [place] 00 daily. Medical Branch busPIRone Yes [id number] 15mg Take 1 [facility] nivers 15 mg 8-14 tablet by ity of tablet 00:00: mouth 2 [place] 00 (two) Medical times Branch daily. risperiDONE 2018- Yes [id number] .25mg Take 1-2 [facility] (RISPERDAL) 8-14 tablets by it y of 0.25 mg 00:00: mouth 2 [place] tablet 00 (two) Medical times Branch daily. Take 2 tablets in the morning and 1 tablet at night time amantadine 2018- Yes [id number] 200mg Take 2 [facility] HCl 100 mg 8-14 capsules ity o f capsule 00:00: by mouth 2 [place] 00 (two) Medical times Branch daily. SERTraline 2018- Yes [id number] 25mg Take 1 [facility] 25 mg 8-14 tablet by ity of tablet 00:00: mouth [place] 00 daily. Medical Branch ARIPiprazol Yes [id number] 2mg Take 1 [facility] e (ABILIFY) 8-14 tablet by ity of 2 mg tablet 00:00: mouth [place] 00 daily. Medical Branch busPIRone 2018- Yes [id number] 15mg Take 1 [facility] n[facility] 15 mg 8-14 tablet by ity of tablet 00:00: mouth 2 [place] 00 (two) Medical times Branch daily. risperiDONE 2018- Yes [id number] .25mg Take 1-2 [facility] (RISPERDAL) 8-14 tablets by it y of 0.25 mg 00:00: mouth 2 [place] tablet 00 (two) Medical times Branch daily. Take 2 tablets in the morning and 1 tablet at night time amantadine 2018- Yes [id number] 200mg Take 2 [facility] HCl 100 mg 8-14 capsules ity o f capsule 00:00: by mouth 2 [place] 00 (two) Medical times Branch daily. SERTraline 2019- Yes [id number] 25mg Take 1 [facility] 25 mg 8-14 tablet by ity of tablet 00:00: mouth [place] 00 daily. Medical Branch ARIPiprazol Yes [id number] 2mg Take 1 [facility] e (ABILIFY) 8-14 tablet by ity of 2 mg tablet 00:00: mouth [place] 00 daily. Medical Branch busPIRone Yes [id number] 15mg Take 1 [facility] 15 mg 8-14 tablet by ity of tablet 00:00: mouth 2 [place] 00 (two) Medical times Branch daily. risperiDONE 2018- Yes [id number] .25mg Take 1-2 [facility] (RISPERDAL) 8-14 tablets by it y of 0.25 mg 00:00: mouth 2 [place] tablet 00 (two) Medical times Branch daily. Take 2 tablets in the morning and 1 tablet at night time amantadine 2018-0 Yes [id number] 200mg Take 2 [facility] HCl 100 mg 8-14 capsules ity o f capsule 00:00: by mouth 2 [place] 00 (two) Medical times Branch daily. SERTraline 2018- Yes [id number] 25mg Take 1 [facility] 25 mg 8-14 tablet by ity of tablet 00:00: mouth [place] 00 daily. Medical Branch ARIPiprazol Yes [id number] 2mg Take 1 [facility] e (ABILIFY) 8-14 tablet by ity of 2 mg tablet 00:00: mouth [place] 00 daily. Medical Branch busPIRone Yes [id number] 15mg Take 1 [facility] n[facility] 15 mg 8-14 tablet by ity of tablet 00:00: mouth 2 [place] 00 (two) Medical times Branch daily. risperiDONE 2018- Yes [id number] .25mg Take 1-2 [facility] (RISPERDAL) 8-14 tablets by it y of 0.25 mg 00:00: mouth 2 [place] tablet 00 (two) Medical times Branch daily. Take 2 tablets in the morning and 1 tablet at night time cloNIDine Yes [id number] .1mg Take 1 [place] HCl 8-07 tablet by ity of (KAPVAY) 00:00: mouth at [place] 0.1 mg 00 bedtime. Medical tablet Branch cloNIDine Yes [id number] .1mg Take 1 [place] HCl 8-07 tablet by ity of (KAPVAY) 00:00: mouth at [place] 0.1 mg 00 bedtime. Medical tablet Branch cloNIDine 2019- No [id number] .1mg Take 1 [facility] HCl 8-07 08-14 tablet by ity of (KAPVAY) 00:00: 00:00 mouth at [place] 0.1 mg 00 :00 bedtime. Medical tablet Branch cloNIDine 2019- No [id number] .1mg Take 1 [facility] HCl 8-07 08-14 tablet by ity of (KAPVAY) 00:00: 00:00 mouth at [place] 0.1 mg 00 :00 bedtime. Medical tablet Branch XOPENEX HFA Yes [id number] INHALE 2 [facility] 45 7-29 PUFFS BY ity of mcg/actuati 00:00: MOUTH [place] on inhaler 00 EVERY 6 Medica l HOURS Branch NEEDED FOR SHORTNESS OF BREATH, WHEEZING OR BEFORE EXERCISE. XOPENEX HFA Yes [id number] INHALE 2 [facility] 45 7-29 PUFFS BY ity of mcg/actuati 00:00: MOUTH [place] on inhaler 00 EVERY 6 Medica l HOURS Branch NEEDED FOR SHORTNESS OF BREATH, WHEEZING OR BEFORE EXERCISE. XOPENEX HFA Yes [id number] INHALE 2 [facility] 45 7-29 PUFFS BY ity of mcg/actuati 00:00: MOUTH [place] on inhaler 00 EVERY 6 Medica l HOURS Branch NEEDED FOR SHORTNESS OF BREATH, WHEEZING OR BEFORE EXERCISE. XOPENEX HFA Yes [id number] INHALE 2 [facility] 45 7-29 PUFFS BY ity of mcg/actuati 00:00: MOUTH [place] on inhaler 00 EVERY 6 Medica l HOURS Branch NEEDED FOR SHORTNESS OF BREATH, WHEEZING OR BEFORE EXERCISE. XOPENEX HFA 2019- No [id number] INHALE 2 [facility] 45 7-29 08-15 PUFFS BY ity of mcg/actuati 00:00: 00:00 MOUTH [place] on inhaler 00 :00 EVERY 6 Medica l HOURS Branch NEEDED FOR SHORTNESS OF BREATH, WHEEZING OR BEFORE EXERCISE. XOPENEX HFA 2019- No [id number] INHALE 2 [facility] 45 7-29 08-15 PUFFS BY ity of mcg/actuati 00:00: 00:00 MOUTH [place] on inhaler 00 :00 EVERY 6 Medica l HOURS Branch NEEDED FOR SHORTNESS OF BREATH, WHEEZING OR BEFORE EXERCISE. XOPENEX HFA 2018- No [id number] INHALE 2 [facility] 45 7-29 08-15 PUFFS BY ity of mcg/actuati 00:00: 00:00 MOUTH [place] on inhaler 00 :00 EVERY 6 Medica l HOURS Branch NEEDED FOR SHORTNESS OF BREATH, WHEEZING OR BEFORE EXERCISE. amantadine 2019-0 Yes [id number] 200mg Take 20 mL [facility] HCl 50 mg/5 7-23 by mouth 2 it y of mL solution 00:00: (two) [place] 00 times Medical daily. Branch amantadine 2019-0 Yes [id number] 200mg Take 20 mL [facility] HCl 50 mg/5 7-23 by mouth 2 it y of mL solution 00:00: (two) [place] 00 times Medical daily. Branch amantadine 2019-0 Yes [id number] 200mg Take 20 mL [facility] HCl 50 mg/5 7-23 by mouth 2 it y of mL solution 00:00: (two) [place] 00 times Medical daily. Branch amantadine 2019-0 Yes [id number] 200mg Take 20 mL [facility] HCl 50 mg/5 7-23 by mouth 2 it y of mL solution 00:00: (two) [place] 00 times Medical daily. Branch amantadine 2018-0 2019- No [id number] 200mg Take 20 mL [facility] HCl 50 mg/5 7-23 08-14 by mouth 2 i ty of mL solution 00:00: 00:00 (two) [place] 00 :00 times Medical daily. Branch amantadine 2018- 2019- No [id number] 200mg Take 20 mL [facility] HCl 50 mg/5 02-07 08-14 by mouth 2 i ty of mL solution 00:00: 00:00 (two) [place] 00 :00 times Medical daily. Branch busPIRone Yes [id number] 15mg Take 1 [facility] nivers 15 mg 7-18 tablet by ity of tablet 00:00: mouth 2 [place] 00 (two) Medical times Branch daily. busPIRone Yes [id number] 15mg Take 1 [facility] nivers 15 mg 7-18 tablet by ity of tablet 00:00: mouth 2 [place] 00 (two) Medical times Branch daily. busPIRone Yes [id number] 15mg Take 1 [facility] nivers 15 mg 7-18 tablet by ity of tablet 00:00: mouth [address] [place] [address] (two) Medical times Branch daily. busPIRone Yes [id number] 15mg Take 1 U nivers 15 mg 7-18 tablet by ity of tablet 00:00: mouth [address] [place] [address] (two) Medical times Branch daily. busPIRone 2019- No [id number] 15mg Take 1 [facility] 15 mg 7-18 08-14 tablet by ity of tablet 00:00: 00:00 mouth 2 [place] 00 :00 (two) Medical times Branch daily. busPIRone 2019- No [id number] 15mg Take 1 [facility] 15 mg 7-18 08-14 tablet by ity of tablet 00:00: 00:00 mouth 2 [place] 00 :00 (two) Medical times Branch daily. XOPENEX HFA 2019- No [id number] INHALE 2 [facility] 45 7-10 07-29 PUFFS BY ity of mcg/actuati 00:00: 00:00 MOUTH [place] on inhaler 00 :00 EVERY 6 Medica l HOURS Branch NEEDED SHORTNESS OF BREATH, WHEEZING, OR BEFORE EXERCISE fluticasone Yes [id number] 1{puff} Inhale 1 [facility] propionate 7-01 Puff 2 ity of (FLOVENT 00:00: (two) [place] [facility]) 110 00 times Medical mcg/actuati daily. Branch on inhaler fluticasone Yes [id number] 1{puff} Inhale 1 [facility] propionate 7-01 Puff 2 ity of (FLOVENT 00:00: ([place] [facility]) 110 00 times Medical mcg/actuati daily. Branch on inhaler fluticasone Yes [id number] 1{puff} Inhale 1 [facility] propionate 7-01 Puff 2 ity of (FLOVENT 00:00: ([facility]) [place] [facility]) 110 00 times Medical mcg/actuati daily. Branch on inhaler fluticasone Yes [id number] 1{puff} Inhale 1 [facility] propionate 7-01 Puff 2 ity of (FLOVENT 00:00: ([facility]) [facility]) 110 00 times Medical mcg/actuati daily. Branch on inhaler fluticasone Yes [id number] 1{puff} Inhale 1 [facility] propionate 7-01 Puff 2 ity of (FLOVENT 00:00: ([facility]) 110 00 times Medical mcg/actuati daily. Branch on inhaler fluticasone Yes [id number] 1{puff} Inhale 1 [facility] propionate 7-01 Puff 2 ity of (FLOVENT 00:00: ([facility]) 110 00 times Medical mcg/actuati daily. Branch on inhaler fluticasone Yes [id number] 1{puff} Inhale 1 [facility] propionate 7-01 Puff 2 ity of (FLOVENT 00:00: ([facility]) 110 00 times Medical mcg/actuati daily. Branch on inhaler fluticasone Yes [id number] 1{puff} Inhale 1 [facility] propionate 7-01 Puff 2 ity of (FLOVENT 00:00: ([facility]) 110 00 times Medical mcg/actuati daily. Branch on inhaler fluticasone Yes [id number] 1{puff} Inhale 1 [facility] propionate 7-01 Puff 2 ity of (FLOVENT 00:00: ([facility]) 110 00 times Medical mcg/actuati daily. Branch on inhaler fluticasone Yes [id number] 1{puff} Inhale 1 [facility] propionate 7-01 Puff 2 ity of (FLOVENT 00:00: ([facility]) [place] [facility]) 110 00 times Medical mcg/actuati daily. Branch on inhaler fluticasone Yes [id number] 1{puff} Inhale 1 [facility] propionate 7-01 Puff 2 ity of (FLOVENT 00:00: (two) [place] [facility]) 110 00 times Medical mcg/actuati daily. Branch on inhaler fluticasone Yes [id number] 1{puff} Inhale 1 [facility] propionate 7-01 Puff 2 ity of (FLOVENT 00:00: (two) [place] [facility]) 110 00 times Medical mcg/actuati daily. Branch on inhaler fluticasone Yes [id number] 1{puff} Inhale 1 [facility] propionate 7-01 Puff 2 ity of (FLOVENT 00:00: (two) [place] [facility]) 110 00 times Medical mcg/actuati daily. Branch on inhaler fluticasone Yes [id number] 1{puff} Inhale 1 [facility] propionate 7-01 Puff 2 ity of (FLOVENT 00:00: (two) [place] [facility]) 110 00 times Medical mcg/actuati daily. Branch on inhaler ARIPiprazol Yes [id number] 2mg Take 1 [facility] e (ABILIFY) 6-20 tablet by ity of 2 mg tablet 00:00: mouth [place] 00 daily. Medical Branch ARIPiprazol Yes [id number] 2mg Take 1 [facility] e (ABILIFY) 6-20 tablet by ity of 2 mg tablet 00:00: mouth [place] 00 daily. Medical Branch ARIPiprazol Yes [id number] 2mg Take 1 [facility] e (ABILIFY) 6-20 tablet by ity of 2 mg tablet 00:00: mouth [place] 00 daily. Medical Branch ARIPiprazol Yes [id number] 2mg Take 1 [facility] e (ABILIFY) 6-20 tablet by ity of 2 mg tablet 00:00: mouth [place] 00 daily. [facility] Branch ARIPiprazol 2019- No [id number] 2mg Take 1 [facility] e (ABILIFY) 6-20 08-14 tablet by it y of 2 mg tablet 00:00: 00:00 mouth [place] 00 :00 daily. Medical Branch ARIPiprazol 2019- No [id number] 2mg Take 1 [facility] e (ABILIFY) 6-20 08-14 tablet by it y of 2 mg tablet 00:00: 00:00 mouth [place] 00 :00 daily. Medical Branch lisdexamfet 2019-0 Yes [id number] 40mg Take 1 [facility] amine 40 mg 6-19 capsule by it y of capsule 00:00: mouth [place] 00 every Medical morning. Branch lisdexamfet 2019-0 Yes [id number] 40mg Take 1 [facility] amine 40 mg 6-19 capsule by it y of capsule 00:00: mouth [place] 00 every Medical morning. Branch lisdexamfet 2019-0 Yes [id number] 40mg Take 1 [facility] amine 40 mg 6-19 capsule by it y of capsule 00:00: mouth [place] 00 every Medical morning. Branch lisdexamfet 2019-0 Yes [id number] 40mg Take 1 [facility] amine 40 mg 6-19 capsule by it y of capsule 00:00: mouth [place] 00 every Medical morning. Branch lisdexamfet 2019-0 Yes [id number] 40mg Take 1 [facility] amine 40 mg 6-19 capsule by it y of capsule 00:00: mouth [place] 00 every Medical morning. Branch lisdexamfet 2019-0 Yes [id number] 40mg Take 1 [facility] amine 40 mg 6-19 capsule by it y of capsule 00:00: mouth [place] 00 every Medical morning. Branch lisdexamfet 2019-0 Yes [id number] 40mg Take 1 [facility] amine 40 mg 6-19 capsule by it y of capsule 00:00: mouth [place] 00 every Medical morning. Branch lisdexamfet 2019-0 Yes [id number] 40mg Take 1 [facility] amine 40 mg 6-19 capsule by it y of capsule 00:00: mouth [place] 00 every Medical morning. Branch lisdexamfet 2019-0 Yes [id number] 40mg Take 1 [facility] amine 40 mg 6-19 capsule by it y of capsule 00:00: mouth [place] 00 every Medical morning. Branch lisdexamfet 2019-0 Yes [id number] 40mg Take 1 [facility] amine 40 mg 6-19 capsule by it y of capsule 00:00: mouth [place] 00 every Medical morning. Branch lisdexamfet 2019-0 Yes [id number] 40mg Take 1 [facility] amine 40 mg 6-19 capsule by it y of capsule 00:00: mouth [place] 00 every Medical morning. Branch lisdexamfet 2019-0 Yes [id number] 40mg Take 1 [facility] amine 40 mg 6-19 capsule by it y of capsule 00:00: mouth [place] 00 every Medical morning. Branch lisdexamfet Yes [id number] 40mg Take 1 [facility] amine 40 mg 6-19 capsule by it y of capsule 00:00: mouth [place] 00 every Medical morning. Branch lisdexamfet 2019- No [id number] 40mg Take 1 [facility] amine 40 mg 6-19 - capsule by i ty of capsule 00:00: 00:00 mouth [place] 00 :00 every Medical morning. Branch cloNIDine Yes [id number] .1mg Take 1 [place] HCl 5-07 tablet by ity of (KAPVAY) 00:00: mouth at [place] 0.1 mg 00 bedtime. Medical tablet Branch cloNIDine Yes [id number] .1mg Take 1 [place] HCl 5-07 tablet by ity of (KAPVAY) 00:00: mouth at [place] 0.1 mg 00 bedtime. Medical tablet Branch cloNIDine 2019- No [id number] .1mg Take 1 [facility] n[facility] HCl 5-07 08-07 tablet by ity of (KAPVAY) 00:00: 00:00 mouth at [place] 0.1 mg 00 :00 bedtime. Medical tablet Branch XOPENEX HFA Yes [id number] INHALE 2 [facility] 45 5-06 PUFFS BY ity of mcg/actuati 00:00: MOUTH [place] on inhaler 00 EVERY 6 Medica l HOURS Branch NEEDED BEFORE EXERCISE OR FOR WHEEZING, SHORTNESS OF BREATH. XOPENEX HFA Yes [id number] INHALE 2 [facility] 45 5-06 PUFFS BY ity of mcg/actuati 00:00: MOUTH [place] on inhaler 00 EVERY 6 Medica l HOURS Branch NEEDED BEFORE EXERCISE OR FOR WHEEZING, SHORTNESS OF BREATH. XOPENEX HFA Yes [id number] INHALE 2 [facility] 45 5-06 PUFFS BY ity of mcg/actuati 00:00: MOUTH [place] on inhaler 00 EVERY 6 Medica l HOURS Branch NEEDED BEFORE EXERCISE OR FOR WHEEZING, SHORTNESS OF BREATH. XOPENEX HFA Yes [id number] INHALE 2 [facility] 45 5-06 PUFFS BY ity of mcg/actuati 00:00: MOUTH [place] on inhaler 00 EVERY 6 Medica l HOURS Branch NEEDED BEFORE EXERCISE OR FOR WHEEZING, SHORTNESS OF BREATH. XOPENEX HFA 2019- No [id number] INHALE 2 [facility] 45 5-06 08-15 PUFFS BY ity of mcg/actuati 00:00: 00:00 MOUTH [place] on inhaler 00 :00 EVERY 6 Medica l HOURS Branch NEEDED BEFORE EXERCISE OR FOR WHEEZING, SHORTNESS OF BREATH. XOPENEX HFA 2019- No [id number] INHALE 2 [facility] 45 5-06 08-15 PUFFS BY ity of mcg/actuati 00:00: 00:00 MOUTH [place] on inhaler 00 :00 EVERY 6 Medica l HOURS Branch NEEDED BEFORE EXERCISE OR FOR WHEEZING, SHORTNESS OF BREATH. XOPENEX HFA 2018- No [id number] INHALE 2 [facility] 45 5-06 08-15 PUFFS [...] suspension times Branch daily. SERTraline 2018- Yes [id number] 25mg Take 0.5-1 [facility] 50 mg 4-24 tablets by ity of tablet 00:00: mouth [place] 00 daily. Medical Branch risperiDONE 2018- Yes [id number] .5mg Take 2 [facility] (RISPERDAL) 4-24 tablets by it y of 0.25 mg 00:00: mouth 2 [place] tablet 00 (two) Medical times Branch daily. SERTraline 2019- Yes [id number] 25mg Take 0.5-1 [facility] 50 mg 4-24 tablets by ity of tablet 00:00: mouth [place] 00 daily. Medical Branch risperiDONE 2018- Yes [id number] .5mg Take 2 [facility] (RISPERDAL) 4-24 tablets by it y of 0.25 mg 00:00: mouth 2 [place] tablet 00 (two) Medical times Branch daily. SERTraline 2018- Yes [id number] 25mg Take 0.5-1 [facility] 50 mg 4-24 tablets by ity of tablet 00:00: mouth [place] 00 daily. Medical Branch risperiDONE Yes [id number] .5mg Take 2 [facility] (RISPERDAL) 4-24 tablets by it y of 0.25 mg 00:00: mouth 2 [place] tablet 00 (two) Medical times Branch daily. SERTraline 2018- Yes [id number] 25mg Take 0.5-1 [facility] 50 mg 4-24 tablets by ity of tablet 00:00: mouth [place] 00 daily. Medical Branch risperiDONE Yes [id number] .5mg Take 2 [facility] (RISPERDAL) 4-24 tablets by it y of 0.25 mg 00:00: mouth 2 [place] tablet 00 (two) Medical times Branch daily. SERTraline 2019- No [id number] 25mg Take 0.5-1 [facility] 50 mg 4-24 08-14 tablets by ity of tablet 00:00: 00:00 mouth [place] 00 :00 daily. Medical Branch risperiDONE 2019- No [id number] .5mg Take 2 [facility] (RISPERDAL) 4-24 08-14 tablets by i ty of 0.25 mg 00:00: 00:00 mouth 2 [place] tablet 00 :00 (two) Medical times Branch daily. SERTraline 2018- 2019- No [id number] 25mg Take 0.5-1 [facility] 50 mg 4-24 08-14 tablets by ity of tablet 00:00: 00:00 mouth [place] 00 :00 daily. Medical Branch risperiDONE 2019- No [id number] .5mg Take 2 [facility] (RISPERDAL) 4-24 08-14 tablets by i ty of 0.25 mg 00:00: 00:00 mouth 2 [place] tablet 00 :00 (two) Medical times Branch daily. ARIPIPRAZOL Yes TAKE 1 Univ ers E 5 mg 1-04 TABLET BY ity of tablet 00:00: MOUTH [place] 00 EVERY Medical DAY([facility] Li[facility] Main MD) ARIPIPRAZOL 0 Yes TAKE 1 [facility] ers E 5 mg 1-04 TABLET BY ity of tablet 00:00: MOUTH [place] 00 EVERY Medical DAY([facility] Main MD) ARIPIPRAZOL Yes TAKE 1 [facility] ers E 5 mg 1-04 TABLET BY ity of tablet 00:00: MOUTH [place] 00 EVERY Medical DAY([facility] MD) ARIPIPRAZOL Yes TAKE 1 [facility] ers E 5 mg 1-04 TABLET BY ity of tablet 00:00: MOUTH [place] 00 EVERY Medical DAY([facility] MD) ARIPIPRAZOL 2019- No TAKE 1 Uni vers E 5 mg 1-04 08-14 TABLET BY ity of tablet 00:00: 00:00 MOUTH [place] 00 :00 EVERY Medical DAY([facility] MD) ARIPIPRAZOL 2019- No TAKE 1 [facility] vers E 5 mg 1-04 08-14 TABLET BY ity of tablet 00:00: 00:00 MOUTH [place] 00 :00 EVERY Medical DAY([facility] Main MD) [place] [id number] 2017-07 Yes 12 ml BID [place] MG/ML ORAL 2-19 , per mom ity of SOLN 21:44: [address] ESOMEPRAZOL 2017-07 Yes 20mg Take 20 mg [facility] E MAG 2-19 by mouth ity of TRIHYDRATE 21:44: once now. [place] (NEXIUM 48 Medical ORAL) [place] [address] 2017-07 Yes 12 ml BID [place] MG/ML ORAL 2-19 , per mom ity of SOLN 21:44: [address] ESOMEPRAZOL 2017-07 Yes 20mg Take 20 mg [facility] E MAG 2-19 by mouth ity of TRIHYDRATE 21:44: once now. [place] (NEXIUM 48 Medical ORAL) [place] [address] 2017-07 Yes 12 ml BID [place] MG/ML ORAL 2-19 , per mom ity of SOLN 21:44: [address] 2017-07 Yes 20mg Take 20 mg [facility] E MAG 2-19 by mouth ity of TRIHYDRATE 21:44: once now. [place] (NEXIUM 48 Medical ORAL) [place] [address] 2017-07 Yes 12 ml BID [place] MG/ML ORAL 2-19 , per mom ity of SOLN 21:44: [address] 2017-07 Yes 20mg Take 20 mg [facility] E MAG 2-19 by mouth ity of TRIHYDRATE 21:44: once now. [place] (NEXIUM 48 Medical ORAL) [place] [address] 2017-07 Yes 12 ml BID [place] MG/ML ORAL 2-19 , per mom ity of SOLN 21:44: [address] 2017-07 Yes 20mg Take 20 mg [facility] E MAG 2-19 by mouth ity of TRIHYDRATE 21:44: once now. [place] (NEXIUM 48 Medical ORAL) [place] [address] 2017-07 Yes 12 ml BID [place] MG/ML ORAL 2-19 , per mom ity of SOLN 21:44: [address] 2017-07 Yes 20mg Take 20 mg [facility] E MAG 2-19 by mouth ity of TRIHYDRATE 21:44: once now. [place] (NEXIUM 48 Medical ORAL) [place] [address] 2017-07 Yes 12 ml BID [place] MG/ML ORAL 2-19 , per mom ity of SOLN 21:44: [address]-07 Yes 20mg Take 20 mg [facility] E MAG 2-19 by mouth ity of TRIHYDRATE 21:44: once now. [place] (NEXIUM 48 Medical ORAL) [place] [address] 2017-07 Yes 12 ml BID [place] MG/ML ORAL 2-19 , per mom ity of SOLN 21:44: [address] 2017-07 Yes 20mg Take 20 mg [facility] E MAG 2-19 by mouth ity of TRIHYDRATE 21:44: once now. [place] (NEXIUM 48 Medical ORAL) [place] [address] 2017-07 Yes 12 ml BID [place] MG/ML ORAL 2-19 , per mom ity of SOLN 21:44: [place] [id number] 2017-07 Yes 12 ml BID [place] MG/ML ORAL 2-19 , per mom ity of SOLN 21:44: [address] 2017-07 Yes 20mg Take 20 mg [facility] E MAG 2-19 by mouth ity of TRIHYDRATE 21:44: once now. [place] (NEXIUM 48 Medical ORAL) [facility] [place] 2017-07 Yes 20mg Take 20 mg [facility] E MAG 2-19 by mouth ity of TRIHYDRATE 21:44: once now. [place] (NEXIUM 48 Medical ORAL) [place] [address] 2017-07 Yes 12 ml BID [place] MG/ML ORAL 2-19 , per mom ity of SOLN 21:44: [address] 2017-07 Yes 20mg Take 20 mg [facility] E MAG 2-19 by mouth ity of TRIHYDRATE 21:44: once now. [place] (NEXIUM 48 Medical ORAL) [place] [address] 2017-07 Yes 12 ml BID [place] MG/ML ORAL 2-19 , per mom ity of SOLN 21:44: [address] 2017-07 Yes 20mg Take 20 mg [facility] E MAG 2-19 by mouth ity of TRIHYDRATE 21:44: once now. [place] (NEXIUM 48 Medical ORAL) [place] [address] 2017-07 Yes 12 ml BID [place] MG/ML ORAL 2-19 , per mom ity of SOLN 21:44: [address] 2017-07 Yes 20mg Take 20 mg [facility] E MAG 2-19 by mouth ity of TRIHYDRATE 21:44: once now. [place] (NEXIUM 48 Medical ORAL) [place] [address] 2017-07 Yes 12 ml BID [place] MG/ML ORAL 2-19 , per mom ity of SOLN 21:44: [address] StreetPRAZO 2017-07 Yes 20mg Take 20 mg [facility] E MAG 2-19 by mouth ity of TRIHYDRATE 21:44: [place]. [place] ([facility]) [place] [address] 2017-07 Yes 12 ml BID [place] MG/ML ORAL 2-19 , per mom ity of SOLN 21:44: [address] 2017-07 Yes 20mg Take 20 mg [facility] E MAG 2-19 by mouth ity of TRIHYDRATE 21:44: [place] now. [place] ([facility]) [place] [address] 2017-07 Yes 12 ml BID [place] MG/ML ORAL 2-19 , per mom ity of SOLN 21:44: [address] 2017-07 Yes 20mg Take 20 mg [facility] E MAG 2-19 by mouth ity of TRIHYDRATE 21:44: [place] now. [place] ([facility] OR[facility]) [place] [address] 2017-07 Yes 12 ml BID [place] MG/ML ORAL 2-19 , per mom ity of SOLN 21:44: [address] 2017-07 Yes 20mg Take 20 mg [facility] E MAG 2-19 by mouth ity of TRIHYDRATE 21:44: once now. [place] ([facility] OR[facility]) [place] [address] 2017-07 Yes 12 ml BID [place] MG/ML ORAL 2-19 , per mom ity of SOLN 21:44: [address] 2017-07 Yes 20mg Take 20 mg [facility] E MAG 2-19 by mouth ity of TRIHYDRATE 21:44: once now. [place] ([facility]) [place] [address] 2017-07 Yes 12 ml BID [place] MG/ML ORAL 2-19 , per mom ity of SOLN 21:44: [address] 2017-07 Yes 20mg Take 20 mg [facility] E MAG 2-19 by mouth ity of TRIHYDRATE 21:44: once now. [place] ([facility] OR[facility]) [place] [address] 2017-07 Yes 12 ml BID [place] MG/ML ORAL 2-19 , per mom ity of SOLN 21:44: [place] [id number] 2017-07 Yes 12 ml BID [place] MG/ML ORAL 2-19 , per mom ity of SOLN 21:44: [address]PR[address] 2017-07 Yes 20mg Take 20 mg [facility] E MAG 2-19 by mouth ity of TRIHYDRATE 21:44: once now. [place] ([facility] OR[facility]) Branch OMEPRAZOL 2017-07 Yes 20mg Take 20 mg [facility] E MAG 2-19 by mouth ity of TRIHYDRATE 21:44: once now. [place] ([facility] OR[facility]) [place] [address] 2017-07 Yes 12 ml BID [place] MG/ML ORAL 2-19 , per mom ity of SOLN 21:44: [address] 2017-07 Yes 20mg Take 20 mg [facility] E MAG 2-19 by mouth ity of TRIHYDRATE 21:44: once now. [place] ([facility] OR[facility]) [place] [address] 2017-07 Yes 12 ml BID [place] MG/ML ORAL 2-19 , per mom ity of SOLN 21:44: [address] 2017-07 Yes 20mg Take 20 mg [facility] E MAG 2-19 by mouth ity of TRIHYDRATE 21:44: once now. [place] ([facility] OR[facility]) [place] [address] 2017-07 Yes 12 ml BID [place] MG/ML ORAL 2-19 , per mom ity of SOLN 21:44: [address] 2017-07 Yes 20mg Take 20 mg [facility] E MAG 2-19 by mouth ity of TRIHYDRATE 21:44: once now. [place] ([facility] OR[facility]) [place] [address] 2017-07 Yes 12 ml BID [place] MG/ML ORAL 2-19 , per mom ity of SOLN 21:44: [address] 2017-07 Yes 20mg Take 20 mg [facility] E MAG 2-19 by mouth ity of TRIHYDRATE 21:44: once now. [place] ([facility]) [place] [address] 2017-07 Yes 12 ml BID [place] MG/ML ORAL 2-19 , per mom ity of SOLN 21:44: [address] 2017-07 Yes 20mg Take 20 mg [facility] E MAG 2-19 by mouth ity of TRIHYDRATE 21:44: once now. [place] ([facility]) Branch [place] [address] 2017-07 Yes 12 ml BID [place] MG/ML ORAL 2-19 , per mom ity of SOLN 21:44: [address] ESOMEPRAZOL 2017-07 Yes 20mg Take 20 mg [facility] E MAG 2-19 by mouth ity of TRIHYDRATE 21:44: once now. [place] ([facility] OR[facility]) Branch [place] [address] 2017-07 Yes 12 ml BID [place] MG/ML ORAL 2-19 , per mom ity of SOLN 21:44: [address] 2017-07 Yes 20mg Take 20 mg [facility] E MAG 2-19 by mouth ity of TRIHYDRATE 21:44: once now. [place] ([facility]) Branch [place] [address] 2017-07 Yes 12 ml BID [place] MG/ML ORAL 2-19 , per mom ity of SOLN 15:44: [address]PRAZ[address] 2017-07 Yes 20mg Take 20 mg [facility] E MAG 2-19 by mouth ity of TRIHYDRATE 15:44: once now. [place] ([facility] OR[facility]) [place] [address] 2017-07 Yes 12 ml BID [place] MG/ML ORAL 2-19 , per mom ity of SOLN 15:44: [address] 2017-07 Yes 20mg Take 20 mg [facility] E MAG 2-19 by mouth ity of TRIHYDRATE 15:44: once now. [place] ([facility] OR[facility]) [place] [address] 2017-07 Yes 12 ml BID [place] MG/ML ORAL 2-19 , per mom ity of SOLN 15:44: [address] 2017-07 Yes 20mg Take 20 mg [facility] E MAG 2-19 by mouth ity of TRIHYDRATE 15:44: once now. [place] ([facility]) [place] [address] 2017-07 Yes 12 ml BID [place] MG/ML ORAL 2-19 , per mom ity of SOLN 15:44: [address] 2017-07 Yes 20mg Take 20 mg [facility] E MAG 2-19 by mouth ity of TRIHYDRATE 15:44: once now. [place] ([facility]) [place] [address] 2017-07 Yes 12 ml BID [place] MG/ML ORAL 2-19 , per mom ity of SOLN 15:44: [address] ESOMEPRAZOL 2017-07 Yes 20mg Take 20 mg [facility] E MAG 2-19 by mouth ity of TRIHYDRATE 15:44: once now. [place] ([facility]) [place] [address] 2017-07 Yes 12 ml BID [place] MG/ML ORAL 2-19 , per mom ity of SOLN 15:44: [address] 2017-07 Yes 20mg Take 20 mg [facility] E MAG 2-19 by mouth ity of TRIHYDRATE 15:44: once now. [place] ([facility]) [place] [address] 2017-07 Yes 12 ml BID [place] MG/ML ORAL 2-19 , per mom ity of SOLN 15:44: [address] 2017-07 Yes 20mg Take 20 mg [facility] E MAG 2-19 by mouth ity of TRIHYDRATE 15:44: once now. [place] ([facility]) [place] [address] 2017-07 Yes 12 ml BID [place] MG/ML ORAL 2-19 , per mom ity of SOLN 15:44: [address] 2017-07 Yes 20mg Take 20 mg [facility] E MAG 2-19 by mouth ity of TRIHYDRATE 15:44: once now. [place] ([facility]) [place] [address] 2017-07 Yes 12 ml BID [place] MG/ML ORAL 2-19 , per mom ity of SOLN 15:44: [address] 2017-07 Yes 20mg Take 20 mg [facility] E MAG 2-19 by mouth ity of TRIHYDRATE 15:44: once now. [place] ([facility] OR[facility]) [place] [address] 2017-07 Yes 12 ml BID [place] MG/ML ORAL 2-19 , per mom ity of SOLN 15:44: [address] 2017-07 Yes 20mg Take 20 mg [facility] E MAG 2-19 by mouth ity of TRIHYDRATE 15:44: once now. [place] ([facility] OR[facility]) [place] [address] 2017-07 Yes 12 ml BID [place] MG/ML ORAL 2-19 , per mom ity of SOLN 15:44: [address] 2017-07 Yes 20mg Take 20 mg [facility] E MAG 2-19 by mouth ity of TRIHYDRATE 15:44: once now. [place] ([facility] OR[facility]) [place] [address] 2017-07 Yes 12 ml BID [place] MG/ML ORAL 2-19 , per mom ity of SOLN 15:44: [address] 2017-07 Yes 20mg Take 20 mg [facility] E MAG 2-19 by mouth ity of TRIHYDRATE 15:44: once now. [place] ([facility]) [place] [address] 2017-07 Yes 12 ml BID [place] MG/ML ORAL 2-19 , per mom ity of SOLN 15:44: [address] 2017-07 Yes 20mg Take 20 mg [facility] E MAG 2-19 by mouth ity of TRIHYDRATE 15:44: once now. [place] ([facility]) [place] [address] 2017-07 Yes 12 ml BID [place] MG/ML ORAL 2-19 , per mom ity of SOLN 15:44: [address] 2017-07 Yes 20mg Take 20 mg [facility] E MAG 2-19 by mouth ity of TRIHYDRATE 15:44: once now. [place] ([facility] OR[facility]) [place] [address] 2017-07 Yes 12 ml BID [place] MG/ML ORAL 2-19 , per mom ity of SOLN 15:44: [address] 2017-07 Yes 20mg Take 20 mg [facility] E MAG 2-19 by mouth ity of TRIHYDRATE 15:44: once now. [place] ([facility] OR[facility]) [place] [address] 2017-07 Yes 12 ml BID [place] MG/ML ORAL 2-19 , per mom ity of SOLN 15:44: [address] 2017-07 Yes 20mg Take 20 mg [facility] E MAG 2-19 by mouth ity of TRIHYDRATE 15:44: once now. [place] ([facility] OR[facility]) [place] [address] 2017-07 Yes 12 ml BID [place] MG/ML ORAL 2-19 , per mom ity of SOLN 15:44: [address]PRAZ[address] 2017-07 Yes 20mg Take 20 mg [facility] E MAG 2-19 by mouth ity of TRIHYDRATE 15:44: once now. [place] ([facility] OR[facility]) [place] [address] 2017-07 Yes 12 ml BID [place] MG/ML ORAL 2-19 , per mom ity of SOLN 15:44: [address] 2017-07 Yes 20mg Take 20 mg [facility] E MAG 2-19 by mouth ity of TRIHYDRATE 15:44: once now. [place] ([facility] OR[facility]) [place] [address] 2017-07 Yes 12 ml BID [place] MG/ML ORAL 2-19 , per mom ity of SOLN 15:44: [address] 2017-07 Yes 20mg Take 20 mg [facility] E MAG 2-19 by mouth ity of TRIHYDRATE 15:44: once now. [place] ([facility] OR[facility]) [place] [address] 2017-07 Yes 12 ml BID [place] MG/ML ORAL 2-19 , per mom ity of SOLN 15:44: [address] 2017-07 Yes 20mg Take 20 mg [facility] E MAG 2-19 by mouth ity of TRIHYDRATE 15:44: once now. [place] ([facility] OR[facility]) [place] [address] 2017-07 Yes 12 ml BID [place] MG/ML ORAL 2-19 , per mom ity of SOLN 15:44: [address] 2017-07 Yes 20mg Take 20 mg [facility] E MAG 2-19 by mouth ity of TRIHYDRATE 15:44: once now. [place] ([facility] OR[facility]) [place] [address] 2017-07 Yes 12 ml BID [place] MG/ML ORAL 2-19 , per mom ity of SOLN 15:44: [address] 2017-07 Yes 20mg Take 20 mg [facility] E MAG 2-19 by mouth ity of TRIHYDRATE 15:44: once now. [place] ([facility] OR[facility]) [place] [address] 2017-07 Yes 12 ml BID [place] MG/ML ORAL 2-19 , per mom ity of SOLN 15:44: [place] [facility] ESOMEPRAZOL 2017-07 Yes 20mg Take 20 mg [...] for ity of N NASAL 19:32: migraines [address] Yes Apply to [place] ne 0.1% in 8- affected ity o f aquaphor 19:32: area(s). [place] ([address] ) ointment Branch DIASTAT Yes 10mg as Univers ACUDIAL 8-21 needed for ity of 5-7.5-10 MG 19:32: seizure [place] as RECTAL KIT 05 lasting Medica l greater Branch than 5 min IMITREX 5 Yes as needed Uni vers MG/ACTUATIO 8-21 for ity of N NASAL 19:32: migraines [address] Yes Apply to [place] ne 0.1% in 8- affected ity o f aquaphor 19:32: area(s). [place] ([facility] ) ointment Branch DIASTAT Yes 10mg as [facility] ACUDIAL 8-21 needed for ity of 5-7.5-10 MG 19:32: seizure [place] as RECTAL KIT 05 lasting Medica l greater Branch than 5 min IMITREX 5 Yes as needed Uni vers MG/ACTUATIO 8-21 for ity of N NASAL 19:32: migraines [address] Yes Apply to [place] ne 0.1% in 8-21 affected ity o f aquaphor 19:32: area(s). [place] ([facility] ) ointment Branch DIASTAT Yes 10mg as [facility] ACUDIAL 8-21 needed for ity of 5-7.5-10 MG 19:32: seizure [place] as RECTAL KIT 05 lasting Medica l greater Branch than 5 min IMITREX 5 Yes as needed Uni vers MG/ACTUATIO 8-21 for ity of N NASAL 19:32: migraines [address] Yes Apply to [place] ne 0.1% in 8-21 affected ity o f aquaphor 19:32: area(s). [place] ([address] ) ointment Branch DIASTAT Yes 10mg as Univers ACUDIAL 8-21 needed for ity of 5-7.5-10 MG 19:32: seizure [place] as RECTAL KIT 05 lasting Medica l greater Branch than 5 min IMITREX 5 Yes as needed Uni vers MG/ACTUATIO 8-21 for ity of N NASAL 19:32: migraines [address] Yes Apply to [place] ne 0.1% in 8-21 affected ity o f aquaphor 19:32: area(s). [place] ([address] ) ointment [place] DIASTAT Yes 10mg as Univers ACUDIAL 8-21 needed for ity of 5-7.5-10 MG 19:32: seizure [place] as RECTAL KIT 05 lasting Medica l greater Branch than 5 min IMITREX 5 Yes as needed Uni vers MG/ACTUATIO 8-21 for ity of N NASAL 19:32: migraines [address] Yes Apply to [place] ne 0.1% in 8-21 affected ity o f aquaphor 19:32: area(s). [place] (COMPOUNDED [address] [place] [address] ) ointment Branch DIASTAT Yes 10mg as Univers ACUDIAL 8-21 needed for ity of 5-7.5-10 MG 19:32: seizure [place] as RECTAL KIT 05 lasting Medica l greater Branch than 5 min IMITREX 5 Yes as needed Uni vers MG/ACTUATIO 8-21 for ity of N NASAL 19:32: migraines [address] Yes Apply to [place] ne 0.1% in 8-21 affected ity o f aquaphor 19:32: area(s). [place] ([facility] ) ointment Branch DIASTAT Yes 10mg as Univers ACUDIAL 8-21 needed for ity of 5-7.5-10 MG 19:32: seizure [place] as RECTAL KIT 05 lasting Medica l greater Branch than 5 min IMITREX 5 Yes as needed Uni vers MG/ACTUATIO 8-21 for ity of N NASAL 19:32: migraines [address] Yes Apply to [place] ne 0.1% in 8-21 affected ity o f aquaphor 19:32: area(s). [place] ([facility] ) ointment Branch DIASTAT Yes [...] ity of N NASAL 19:32: migraines [address] IMITREX 5 Yes as needed Uni vers MG/ACTUATIO 8-21 for ity of N NASAL 19:32: migraines [address] Yes Apply to [place] ne 0.1% in 8-21 affected ity o f aquaphor 19:32: area(s). [place] ([facility] ) ointment Branch DIASTAT Yes 10mg as Univers ACUDIAL 8-21 needed for ity of 5-7.5-10 MG 19:32: seizure [place] as RECTAL KIT 05 lasting Medica l greater Branch than 5 min IMITREX 5 Yes as needed Uni vers MG/ACTUATIO 8-21 for ity of N NASAL 19:32: migraines [address] Yes Apply to [place] ne 0.1% in 8-21 affected ity o f aquaphor 19:32: area(s). [place] ([facility] ) ointment [facility] Yes Apply to [place] ne 0.1% in 8-21 affected ity o f aquaphor 19:32: area(s). [place] ([facility] ) ointment Branch DIASTAT Yes 10mg as Univers ACUDIAL 8-21 needed for ity of 5-7.5-10 MG 19:32: seizure [place] as RECTAL KIT 05 lasting Medica l greater Branch than 5 min IMITREX 5 Yes as needed Uni vers MG/ACTUATIO 8-21 for ity of N NASAL 19:32: migraines [address] Yes Apply to [place] ne 0.1% in 8- affected ity o f aquaphor 19:32: area(s). [place] (COMPOUNDED [address] [place] [address] ) ointment Branch DIASTAT Yes 10mg as Univers ACUDIAL 8-21 needed for ity of 5-7.5-10 MG 19:32: seizure [place] as RECTAL KIT 05 lasting Medica l greater Branch than 5 min IMITREX 5 Yes as needed Uni vers MG/ACTUATIO 8-21 for ity of N NASAL 19:32: migraines [address] Yes Apply to [place] ne 0.1% in 8- affected ity o f aquaphor 19:32: area(s). [place] ([facility] ) ointment Branch DIASTAT Yes 10mg as Univers ACUDIAL 8-21 needed for ity of 5-7.5-10 MG 19:32: seizure [place] as RECTAL KIT 05 lasting Medica l greater Branch than 5 min IMITREX 5 Yes as needed Uni vers MG/ACTUATIO 8-21 for ity of N NASAL 19:32: migraines [address] Yes Apply to [place] ne 0.1% in 8- affected ity o f aquaphor 19:32: area(s). [place] ([facility] ) ointment Branch DIASTAT Yes 10mg as Univers ACUDIAL 8-21 needed for ity of 5-7.5-10 MG 19:32: seizure [place] as RECTAL KIT 05 lasting Medica l greater Branch than 5 min IMITREX 5 Yes as needed Uni vers MG/ACTUATIO 8-21 for ity of N NASAL 19:32: migraines [address] Yes Apply to [place] ne 0.1% in 8-21 affected ity o f aquaphor 19:32: area(s). [place] ([address] ) ointment Branch DIASTAT Yes 10mg as Univers ACUDIAL 8-21 needed for ity of 5-7.5-10 MG 19:32: seizure [place] as RECTAL KIT 05 lasting Medica l greater Branch than 5 min IMITREX 5 Yes as needed Uni vers MG/ACTUATIO 8-21 for ity of N NASAL 19:32: migraines [address] Yes Apply to [place] 0.1% in 8-21 affected ity o f aquaphor 19:32: area(s). [place] ([address] ) ointment [place] DIASTAT Yes 10mg as Univers ACUDIAL 8-21 needed for ity of 5-7.5-10 MG 19:32: seizure [place] as RECTAL KIT 05 lasting Medica l greater Branch than 5 min IMITREX 5 Yes as needed Uni vers MG/ACTUATIO 8-21 for ity of N NASAL 19:32: migraines [address] Yes Apply to [place] ne 0.1% in 8-21 affected ity o f aquaphor 19:32: area(s). [place] ([address] ) ointment Branch DIASTAT Yes 10mg as Univers ACUDIAL 8-21 needed for ity of 5-7.5-10 MG 19:32: seizure [place] as RECTAL KIT 05 lasting Medica l greater Branch than 5 min IMITREX 5 Yes as needed Uni vers MG/ACTUATIO 8-21 for ity of N NASAL 19:32: migraines [address] Yes Apply to [place] ne 0.1% in 8-21 affected ity o f aquaphor 19:32: area(s). [place] (COMPOUND[facility] [address] [place] [address] ) ointment Branch DIASTAT Yes 10mg as Univers ACUDIAL 8-21 needed for ity of 5-7.5-10 MG 19:32: seizure [place] as RECTAL KIT 05 lasting Medica l greater Branch than 5 min IMITREX 5 Yes as needed Uni vers MG/ACTUATIO 8-21 for ity of N NASAL 19:32: migraines [address] Yes Apply to [place] ne 0.1% in 8- affected ity o f aquaphor 19:32: area(s). [place] ([facility] ) ointment [place] DIAST Yes 10mg as Univers ACUDIAL 8-21 needed for ity of 5-7.5-10 MG 19:32: seizure [place] as RECTAL KIT 05 lasting Medica l greater Branch than 5 min IMITREX 5 Yes as needed Uni vers MG/ACTUATIO 8-21 for ity of N NASAL 19:32: migraines [address] Yes Apply to [place] ne 0.1% in - affected ity o f aquaphor 19:32: area(s). [place] ([facility] ) ointment [place] DIAST Yes 10mg as Univers ACUDIAL 8-21 needed for ity of 5-7.5-10 MG 19:32: seizure [place] as RECTAL KIT 05 lasting Medica l greater Branch than 5 min IMITREX 5 Yes as needed Uni vers MG/ACTUATIO 8-21 for ity of N NASAL 19:32: migraines [address] DIAST Yes 10mg as Univers ACUDIAL 8-21 needed for ity of 5-7.5-10 MG 19:32: seizure [place] as RECTAL KIT 05 lasting Medica l greater Branch than 5 min IMITREX 5 Yes as needed Uni vers MG/ACTUATIO 8-21 for ity of N NASAL 19:32: migraines [address] Yes Apply to [place] ne 0.1% in 8-21 affected ity o f aquaphor 19:32: area(s). [place] ([facility] ) ointment [facility] Yes Apply to [place] ne 0.1% in 8- affected ity o f aquaphor 19:32: area(s). [place] ([facility] ) ointment Branch DIASTAT Yes 10mg as Univers ACUDIAL 8-21 needed for ity of 5-7.5-10 MG 19:32: seizure [place] as RECTAL KIT 05 lasting Medica l greater Branch than 5 min IMITREX 5 Yes as needed Uni vers MG/ACTUATIO 8-21 for ity of N NASAL 19:32: migraines [place] SPR[facility] [address] [place] [address] Yes Apply to [place] ne 0.1% in 8- affected ity o f aquaphor 19:32: area(s). [place] (COMPOUNDED [address] [place] [address] ) ointment Branch DIASTAT Yes 10mg as Univers ACUDIAL 8-21 needed for ity of 5-7.5-10 MG 19:32: seizure [place] as RECTAL KIT 05 lasting Medica l greater Branch than 5 min IMITREX 5 Yes as needed Uni vers MG/ACTUATIO 8-21 for ity of N NASAL 19:32: [facility] [address] [place] [address] Yes Apply to [place] ne 0.1% in - affected ity o f aquaphor 19:32: area(s). [place] ([facility] ) ointment Branch DIASTAT Yes 10mg as Univers ACUDIAL 8-21 needed for ity of 5-7.5-10 MG 19:32: seizure [place] as RECTAL KIT 05 lasting Medica l greater Branch than 5 min IMITREX 5 Yes as needed Uni vers MG/ACTUATIO 8-21 for ity of N NASAL 19:32: [facility] [address] [place] [address] Yes Apply to [place] ne 0.1% in 8- affected ity o f aquaphor 19:32: area(s). [place] ([facility] ) ointment Branch DIASTAT Yes 10mg as Univers ACUDIAL 8-21 needed for ity of 5-7.5-10 MG 19:32: seizure [place] as RECTAL KIT 05 lasting Medica l greater Branch than 5 min IMITREX 5 Yes as needed Uni vers MG/ACTUATIO 8-21 for ity of N NASAL 19:32: migraines [address] Yes Apply to [place] ne 0.1% in 8-21 affected ity o f aquaphor 19:32: area(s). [place] (COMPOUND[facility] [address] [place] [address] ) ointment Branch DIASTAT Yes 10mg as Univers ACUDIAL 8-21 needed for ity of 5-7.5-10 MG 19:32: seizure [place] as RECTAL KIT 05 lasting Medica l greater Branch than 5 min IMITREX 5 Yes as needed Uni vers MG/ACTUATIO 8-21 for ity of N NASAL 19:32: migraines [address] Yes Apply to [place] ne 0.1% in 8-21 affected ity o f aquaphor 19:32: area(s). [place] ([address] ) ointment Branch DIASTAT Yes 10mg as Univers ACUDIAL 8-21 needed for ity of 5-7.5-10 MG 19:32: seizure [place] as RECTAL KIT 05 lasting Medica l greater Branch than 5 min IMITREX 5 Yes as needed Uni vers MG/ACTUATIO 8-21 for ity of N NASAL 19:32: migraines [address] Yes Apply to [place] ne 0.1% in 8-21 affected ity o f aquaphor 19:32: area(s). [place] ([facility] ) ointment Branch DIASTAT Yes 10mg as Univers ACUDIAL 8-21 needed for ity of 5-7.5-10 MG 14:32: seizure [place] as RECTAL KIT 05 lasting Medica l greater Branch than 5 min IMITREX 5 Yes as needed Uni vers MG/ACTUATIO 8-21 for ity of N NASAL 14:32: migraines [address] Yes Apply to [place] ne 0.1% in 8-21 affected ity o f aquaphor 14:32: area(s). [place] ([facility] ) ointment Branch DIASTAT Yes 10mg as Univers ACUDIAL 8-21 needed for ity of 5-7.5-10 MG 14:32: seizure [place] as RECTAL KIT 05 lasting Medica l greater Branch than 5 min IMITREX 5 Yes as needed Uni vers MG/ACTUATIO 8-21 for ity of N NASAL 14:32: migraines [address] Yes Apply to [place] ne 0.1% in 8-21 affected ity o f aquaphor 14:32: area(s). [place] ([facility] ) ointment Branch DIASTAT Yes 10mg as Univers ACUDIAL 8-21 needed for ity of 5-7.5-10 MG 14:32: seizure [place] as RECTAL KIT 05 lasting Medica l greater Branch than 5 min IMITREX 5 Yes as needed Uni vers MG/ACTUATIO 8-21 for ity of N NASAL 14:32: migraines [address] Yes Apply to [place] ne 0.1% in 8- affected ity o f aquaphor 14:32: area(s). [place] ([facility] ) ointment [place] DIASTAT Yes 10mg as Univers ACUDIAL 8-21 needed for ity of 5-7.5-10 MG 14:32: seizure [place] as RECTAL KIT 05 lasting Medica l greater Branch than 5 min IMITREX 5 0 Yes as needed Uni vers MG/ACTUATIO 8-21 for ity of N NASAL 14:32: migraines [address] Yes Apply to [place] ne 0.1% in 8-21 affected ity o f aquaphor 14:32: area(s). [place] ([facility] ) ointment Branch DIASTAT Yes 10mg as Univers ACUDIAL 8-21 needed for ity of 5-7.5-10 MG 14:32: seizure [place] as RECTAL KIT 05 lasting Medica l greater Branch than 5 min IMITREX 5 0 Yes as needed Uni vers MG/ACTUATIO 8-21 for ity of N NASAL 14:32: migraines [address] Yes Apply to [place] ne 0.1% in 8-21 affected ity o f aquaphor 14:32: area(s). [place] ([facility] ) ointment Branch DIASTAT Yes 10mg as Univers ACUDIAL 8-21 needed for ity of 5-7.5-10 MG 14:32: seizure [place] as RECTAL KIT 05 lasting Medica l greater Branch than 5 min IMITREX 5 Yes as needed Uni vers MG/ACTUATIO 8-21 for ity of N NASAL 14:32: migraines [address] Yes Apply to [place] ne 0.1% in 8 affected ity o f aquaphor 14:32: area(s). [place] ([facility] ) ointment Branch DIASTAT Yes 10mg as Univers ACUDIAL 8-21 needed for ity of 5-7.5-10 MG 14:32: seizure [place] as RECTAL KIT 05 lasting Medica l greater Branch than 5 min IMITREX 5 Yes as needed Uni vers MG/ACTUATIO 8-21 for ity of N NASAL 14:32: migraines [address] Yes Apply to [place] ne 0.1% in 03-08 affected ity o f aquaphor 14:32: area(s). [place] ([facility] ) ointment Branch DIASTAT Yes 10mg as Univers ACUDIAL 8-21 needed for ity of 5-7.5-10 MG 14:32: seizure [place] as RECTAL KIT 05 lasting Medica l greater Branch than 5 min IMITREX 5 Yes as needed Uni vers MG/ACTUATIO 8-21 for ity of N NASAL 14:32: migraines [address] Yes Apply to [place] 0.1% in 8 affected ity o f aquaphor 14:32: area(s). [place] ([facility] ) ointment Branch DIASTAT Yes 10mg as Univers ACUDIAL 8-21 needed for ity of 5-7.5-10 MG 14:32: seizure [place] as RECTAL KIT 05 lasting Medica l greater Branch than 5 min IMITREX 5 2018-0 Yes as needed Uni vers MG/ACTUATIO 8-21 for ity of N NASAL 14:32: migraines [address] Yes Apply to [place] ne 0.1% in 8-21 affected ity o f aquaphor 14:32: area(s). [place] (COMPOUNDED [address] [place] [address] ) ointment Branch DIASTAT Yes 10mg as Univers ACUDIAL 8-21 needed for ity of 5-7.5-10 MG 14:32: seizure [place] as RECTAL KIT 05 lasting Medica l greater Branch than 5 min IMITREX 5 Yes as needed Uni vers MG/ACTUATIO 8-21 for ity of N NASAL 14:32: migraines [address] Yes Apply to [place] ne 0.1% in 8-21 affected ity o f aquaphor 14:32: area(s). [place] ([address] ) ointment Branch DIASTAT Yes 10mg as Univers ACUDIAL 8-21 needed for ity of 5-7.5-10 MG 14:32: seizure [place] as RECTAL KIT 05 lasting Medica l greater Branch than 5 min IMITREX 5 0 Yes as needed Uni vers MG/ACTUATIO 8-21 for ity of N NASAL 14:32: migraines [address] Yes Apply to [place] 0.1% in 8-21 affected ity o f aquaphor 14:32: area(s). [place] ([facility] ) ointment Branch DIASTAT Yes 10mg as [facility] ACUDIAL 8-21 needed for ity of 5-7.5-10 MG 14:32: seizure [place] as RECTAL KIT 05 lasting Medica l greater Branch than 5 min IMITREX 5 0 Yes as needed Uni vers MG/ACTUATIO 8-21 for ity of N NASAL 14:32: migraines [address] Yes Apply to [place] 0.1% in 8-21 affected ity o f aquaphor 14:32: area(s). [place] ([facility] ) ointment Branch DIASTAT Yes 10mg as [facility] ACUDIAL 8-21 needed for ity of 5-7.5-10 MG 14:32: seizure [place] as RECTAL KIT 05 lasting Medica l greater Branch than 5 min IMITREX 5 Yes as needed Uni vers MG/ACTUATIO 8-21 for ity of N NASAL 14:32: migraines [address] Yes Apply to [place] 0.1% in 8- affected ity o f aquaphor 14:32: area(s). [place] [facility] [address] [place] [address] ) ointment Branch DIASTAT Yes 10mg as [facility] ACUDIAL 8-21 needed for ity of 5-7.5-10 MG 14:32: seizure [place] as RECTAL KIT 05 lasting Medica l greater Branch than 5 min IMITREX 5 Yes as needed Uni vers MG/ACTUATIO 8-21 for ity of N NASAL 14:32: migraines [address] Yes Apply to [place] 0.1% in 8- affected ity o f aquaphor 14:32: area(s). [place] ([facility] [address] [place] [address] ) ointment [place] DIASTAT Yes 10mg as [facility] ACUDIAL 8-21 needed for ity of 5-7.5-10 MG 14:32: seizure [place] as RECTAL KIT 05 lasting Medica l greater Branch than 5 min IMITREX 5 Yes as needed Uni vers MG/ACTUATIO 821 for ity of N NASAL 14:32: migraines [address] Yes Apply to [place] 0.1% in 8-21 affected ity o f aquaphor 14:32: area(s). [place] ([facility] ) ointment Branch DIASTAT Yes 10mg as [facility] ACUDIAL 8-21 needed for ity of 5-7.5-10 MG 14:32: seizure [place] as RECTAL KIT 05 lasting Medica l greater Branch than 5 min IMITREX 5 Yes as needed Uni vers MG/ACTUATIO 8-21 for ity of N NASAL 14:32: migraines [address] Yes Apply to [place] 0.1% in 8-21 affected ity o f aquaphor 14:32: area(s). [place] ([facility] ) ointment Branch DIASTAT Yes 10mg as [facility] ACUDIAL 8-21 needed for ity of 5-7.5-10 MG 14:32: seizure [place] as RECTAL KIT 05 lasting Medica l greater Branch than 5 min IMITREX 5 Yes as needed Uni vers MG/ACTUATIO 8-21 for ity of N NASAL 14:32: migraines [address] Yes Apply to [place] 0.1% in 8- affected ity o f aquaphor 14:32: area(s). [place] ([facility] [address] [place] [address] ) ointment Branch DIASTAT Yes 10mg as [facility] ACUDIAL 8-21 needed for ity of 5-7.5-10 MG 14:32: seizure [place] as RECTAL KIT 05 lasting Medica l greater Branch than 5 min IMITREX 5 Yes as needed Uni vers MG/ACTUATIO 8-21 for ity of N NASAL 14:32: migraines [address] Yes Apply to [place] 0.1% in 8 affected ity o f aquaphor 14:32: area(s). [place] ([facility] ) ointment Branch DIASTAT Yes 10mg as [facility] ACUDIAL 8-21 needed for ity of 5-7.5-10 MG 14:32: seizure [place] as RECTAL KIT 05 lasting Medica l greater Branch than 5 min IMITREX 5 Yes as needed Uni vers MG/ACTUATIO 8-21 for ity of N NASAL 14:32: migraines [address] Yes Apply to [place] 0.1% in 8- affected ity o f aquaphor 14:32: area(s). [place] ([facility] ) ointment Branch DIASTAT Yes 10mg as [facility] ACUDIAL 8-21 needed for ity of 5-7.5-10 MG 14:32: seizure [place] as RECTAL KIT 05 lasting Medica l greater Branch than 5 min IMITREX 5 Yes as needed Uni vers MG/ACTUATIO 8-21 for ity of N NASAL 14:32: migraines [address] Yes Apply to [place] 0.1% in 8-21 affected ity o f aquaphor 14:32: area(s). [place] ([facility] ) ointment Branch DIASTAT Yes 10mg as [facility] ACUDIAL 8-21 needed for ity of 5-7.5-10 MG 14:32: seizure [place] as RECTAL KIT 05 lasting Medica l greater Branch than 5 min IMITREX 5 Yes as needed Uni vers MG/ACTUATIO 8-21 for ity of N NASAL 14:32: migraines [address] Yes Apply to [place] 0.1% in 8-21 affected ity o f aquaphor 14:32: area(s). [place] ([facility] [address] [place] [address] ) ointment Branch DIASTAT Yes 10mg as [facility] ACUDIAL 8-21 needed for ity of 5-7.5-10 MG 14:32: seizure [place] as RECTAL KIT 05 lasting Medica l greater Branch than 5 min IMITREX 5 Yes as needed Uni vers MG/ACTUATIO 8-21 for ity of N NASAL 14:32: migraines [address] Yes Apply to [place] 0.1% in 8-21 affected ity o f aquaphor 14:32: area(s). [place] ([facility] ) ointment Branch IMITREX 5 Yes as needed Uni vers MG/ACTUATIO 8-21 for ity of N NASAL 14:32: migraines [place] [address] [facility] [place] IMITREX 5 Yes as needed Uni vers MG/ACTUATIO 8-21 for ity of N NASAL 14:32: migraines [place] [address] Medical Branch IMITREX 5 Yes as needed Uni vers MG/ACTUATIO 8-21 for ity of N NASAL 14:32: migraines [place] [address] Medical [place] IMITREX 5 Yes as needed Uni vers MG/ACTUATIO 8-21 for ity of N NASAL 14:32: migraines [address] IMITREX 5 Yes as needed Uni vers MG/ACTUATIO 8-21 for ity of N NASAL 14:32: migraines [place] [address] Medical Branch IMITREX 5 0 Yes as needed Uni vers MG/ACTUATIO 8-21 for ity of N NASAL 14:32: migraines [place] [address] Medical Branch IMITREX 5 0 Yes as needed Uni vers MG/ACTUATIO 8-21 for ity of N NASAL 14:32: migraines [place] [address] Medical Branch IMITREX 5 0 Yes as needed Uni vers MG/ACTUATIO 8-21 for ity of N NASAL 14:32: migraines [place] [address] Medical Branch IMITREX 5 Yes as needed Uni vers MG/ACTUATIO 8-21 for ity of N NASAL 14:32: migraines [place] [address] Medical Branch IMITREX 5 Yes as needed Uni vers MG/ACTUATIO 8-21 for ity of N NASAL 14:32: migraines [place] [address] Medical Branch IMITREX 5 Yes as needed Uni vers MG/ACTUATIO 8-21 for ity of N NASAL 14:32: migraines [place] [address] Medical Branch IMITREX 5 0 Yes as needed Uni vers MG/ACTUATIO 8-21 for ity of N NASAL 14:32: migraines [place] [address] Medical Branch IMITREX 5 0 Yes as needed Uni vers MG/ACTUATIO 8-21 for ity of N NASAL 14:32: migraines [place] [address] Medical Branch IMITREX 5 0 Yes as needed Uni vers MG/ACTUATIO 8-21 for ity of N NASAL 14:32: migraines [place] [address] Medical Branch IMITREX 5 0 Yes as needed Uni vers MG/ACTUATIO 8-21 for ity of N NASAL 14:32: migraines [place] [address] Medical Branch IMITREX 5 0 Yes as needed Uni vers MG/ACTUATIO 8-21 for ity of N NASAL 14:32: migraines [place] [address] Medical Branch IMITREX 5 0 Yes as needed Uni vers MG/ACTUATIO 8-21 for ity of N NASAL 14:32: migraines [place] [address] Medical Branch IMITREX 5 2018-0 Yes as needed Uni vers MG/ACTUATIO 8-21 for ity of N NASAL 14:32: migraines [place] [address] Medical Branch IMITREX 5 2017-0 Yes as needed Uni vers MG/ACTUATIO 8-21 for ity of N NASAL 14:32: migraines [place] [address] Medical Branch IMITREX 5 2017-0 Yes as needed Uni vers MG/ACTUATIO 8-21 for ity of N NASAL 14:32: migraines [place] [address] Medical Branch IMITREX 5 0 Yes as needed Uni vers MG/ACTUATIO 8-21 for ity of N NASAL 14:32: migraines [place] [address] Medical Branch IMITREX 5 0 Yes as needed Uni vers MG/ACTUATIO 8-21 for ity of N NASAL 14:32: migraines [place] [address] Medical Branch IMITREX 5 0 Yes as needed Uni vers MG/ACTUATIO 8-21 for ity of N NASAL 14:32: migraines [place] [address] Medical Branch IMITREX 5 0 Yes as needed Uni vers MG/ACTUATIO 8-21 for ity of N NASAL 14:32: migraines [place] [address] Medical Branch IMITREX 5 0 Yes as needed Uni vers MG/ACTUATIO 8-21 for ity of N NASAL 14:32: migraines [place] [address] Medical Branch IMITREX 5 2017-0 Yes as needed Uni vers MG/ACTUATIO 8-21 for ity of N NASAL 14:32: migraines [place] [address] Medical Branch IMITREX 5 0 Yes as needed Uni vers MG/ACTUATIO 8-21 for ity of N NASAL 14:32: migraines [place] [address] Medical Branch IMITREX 5 2017-0 Yes as needed Uni vers MG/ACTUATIO 8-21 for ity of N NASAL 14:32: migraines [place] [address] Medical Branch IMITREX 5 2017-0 Yes as needed Uni vers MG/ACTUATIO 8-21 for ity of N NASAL 14:32: migraines [place] [address] Medical Branch IMITREX 5 0 Yes as needed Uni vers MG/ACTUATIO 8-21 for ity of N NASAL 14:32: migraines [place] [address] Medical Branch IMITREX 5 2017-0 Yes as needed Uni vers MG/ACTUATIO 8-21 for ity of N NASAL 14:32: migraines [address] Branch IMITREX 5 Yes as needed Uni vers MG/ACTUATIO 8-21 for ity of N NASAL 14:32: migraines [address] Branch IMITREX 5 Yes as needed Uni vers MG/ACTUATIO 8-21 for ity of N NASAL 14:32: migraines [address] Branch IMITREX 5 Yes as needed Uni vers MG/ACTUATIO 8-21 for ity of N NASAL 14:32: migraines [address] Branch IMITREX 5 Yes as needed Uni vers MG/ACTUATIO 8-21 for ity of N NASAL 14:32: migraines [address] IMITREX 5 Yes as needed Uni vers MG/ACTUATIO 8-21 for ity of N NASAL 14:32: migraines [address] IMITREX 5 Yes as needed Uni vers MG/ACTUATIO 8-21 for ity of N NASAL 14:32: migraines [address] DIASTAT Yes 10mg as [facility] ACUDIAL 8-21 needed for ity of 5-7.5-10 MG 14:32: seizure [place] as RECTAL KIT 05 lasting Medica l greater Branch than 5 min IMITREX 5 Yes as needed Uni vers MG/ACTUATIO 8-21 for ity of N NASAL 14:32: migraines [address] Branch triamcinolo Yes Apply to [place] 0.1% in 03-08 affected ity o f aquaphor 14:32: area(s). [place] ([facility] 05 [facility] ) ointment Branch busPIRone 2019- No 15mg Take 1 Unive rs 15 mg 03-0817 tablet by ity of tablet 00:00: 00:00 mouth 2 [place] 00 :00 (two) Medical times Branch daily for 30 days. ARIPiprazol 2018- No 5mg Take 1 Uni vers e (ABILIFY) 03-08 0918 tablet by it y of 5 mg [...] mouth [place] 00 daily. Medical Branch fluticasone 2018-0 2019- No [id number] 1{puff} Inhale 1 Univers (FLOVENT 03-04 07-01 [...] Medical times Branch daily. cloNIDine 2017- No [id number] .1mg Take 1-2 Univers HCl 6-26 10-15 [...] 5-22 by mouth. ity of tablet 00:00: [place] [facility] amitriptyli 2018-0 Yes 10mg Take 10 mg Univers ne 10 mg 5-22 by mouth. ity of tablet 00:00: [place] [facility] amitriptyli 2018-0 Yes 10mg Take 10 mg Univers ne 10 mg 5-22 by mouth. ity of tablet 00:00: [place] [facility] amitriptyli 2018-0 Yes 10mg Take 10 mg Univers ne 10 mg 5-22 by mouth. ity of tablet 00:00: [place] [facility] amitriptyli 2017-0 Yes 10mg Take 10 mg Univers ne 10 mg 5-22 by mouth. ity of tablet 00:00: [place] [facility] amitriptyli 2018-0 Yes 10mg Take 10 mg Univers ne 10 mg 5-22 by mouth. ity of tablet 00:00: [place] [facility] amitriptyli 2018-0 Yes 10mg Take 10 mg Univers ne 10 mg 5-22 by mouth. ity of tablet 00:00: [place] [facility] amitriptyli 2017-0 Yes 10mg Take 10 mg Univers ne 10 mg 5-22 by mouth. ity of tablet 00:00: [place] [facility] amitriptyli 2018-0 Yes 10mg Take 10 mg Univers ne 10 mg 5-22 by mouth. ity of tablet 00:00: [place] [facility] amitriptyli 2018-0 Yes 10mg Take 10 mg Univers ne 10 mg 5-22 by mouth. ity of tablet 00:00: [place] [facility] amitriptyli 2018-0 Yes 10mg Take 10 mg Univers ne 10 mg 5-22 by mouth. ity of tablet 00:00: [place] [facility] amitriptyli 2018-0 Yes 10mg Take 10 mg Univers ne 10 mg 5-22 by mouth. ity of tablet 00:00: [place] [facility] amitriptyli 2018-0 Yes 10mg Take 10 mg Univers ne 10 mg 5-22 by mouth. ity of tablet 00:00: [place] [facility] amitriptyli 2018-0 Yes 10mg Take 10 mg Univers ne 10 mg 5-22 by mouth. ity of tablet 00:00: [address] amitriptyli 2018-0 Yes 10mg Take 10 mg Univers ne 10 mg 5-22 by mouth. ity of tablet 00:00: [place] [facility] amitriptyli 2018-0 Yes 10mg Take 10 mg Univers ne 10 mg 5-22 by mouth. ity of tablet 00:00: [place] [facility] amitriptyli 2018-0 Yes 10mg Take 10 mg Univers ne 10 mg 5-22 by mouth. ity of tablet 00:00: [place] [facility] amitriptyli 2018-0 Yes 10mg Take 10 mg Univers ne 10 mg 5-22 by mouth. ity of tablet 00:00: [place] [facility] amitriptyli 2017-0 Yes 10mg Take 10 mg Univers ne 10 mg 5-22 by mouth. ity of tablet 00:00: [place] [facility] amitriptyli 2018-0 Yes 10mg Take 10 mg Univers ne 10 mg 5-22 by mouth. ity of tablet 00:00: [place] [facility] amitriptyli 2018-0 Yes 10mg Take 10 mg Univers ne 10 mg 5-22 by mouth. ity of tablet 00:00: [place] [facility] amitriptyli 2017-0 Yes 10mg Take 10 mg Univers ne 10 mg 5-22 by mouth. ity of tablet 00:00: [place] [facility] amitriptyli 2018-0 Yes 10mg Take 10 mg Univers ne 10 mg 5-22 by mouth. ity of tablet 00:00: [place] [facility] amitriptyli 2018-0 Yes 10mg Take 10 mg Univers ne 10 mg 5-22 by mouth. ity of tablet 00:00: [place] [facility] amitriptyli 2018-0 Yes 10mg Take 10 mg Univers ne 10 mg 5-22 by mouth. ity of tablet 00:00: [place] [facility] amitriptyli 2018-0 Yes 10mg Take 10 mg Univers ne 10 mg 5-22 by mouth. ity of tablet 00:00: [place] [facility] amitriptyli 2018-0 Yes 10mg Take 10 mg Univers ne 10 mg 5-22 by mouth. ity of tablet 00:00: [place] [facility] amitriptyli 2018-0 Yes 10mg Take 10 mg Univers ne 10 mg 5-22 by mouth. ity of tablet 00:00: [place] [facility] amitriptyli 2018-0 Yes 10mg Take 10 mg Univers ne 10 mg 5-22 by mouth. ity of tablet 00:00: [place] [facility] amitriptyli 2018-0 Yes 10mg Take 10 mg Univers ne 10 mg 5-22 by mouth. ity of tablet 00:00: [place] [facility] amitriptyli 2018-0 Yes 10mg Take 10 mg Univers ne 10 mg 5-22 by mouth. ity of tablet 00:00: [place] [facility] amitriptyli 2018-0 Yes 10mg Take 10 mg Univers ne 10 mg 5-22 by mouth. ity of tablet 00:00: [place] [facility] amitriptyli 2017-0 Yes 10mg Take 10 mg Univers ne 10 mg 5-22 by mouth. ity of tablet 00:00: [place] [facility] amitriptyli 2018-0 Yes 10mg Take 10 mg Univers ne 10 mg 5-22 by mouth. ity of tablet 00:00: [place] [facility] amitriptyli 2018-0 Yes 10mg Take 10 mg Univers ne 10 mg 5-22 by mouth. ity of tablet 00:00: [place] [facility] amitriptyli 2017-0 Yes 10mg Take 10 mg Univers ne 10 mg 5-22 by mouth. ity of tablet 00:00: [place] [facility] amitriptyli 2018-0 Yes 10mg Take 10 mg Univers ne 10 mg 5-22 by mouth. ity of tablet 00:00: [place] [facility] amitriptyli 2018-0 Yes 10mg Take 10 mg Univers ne 10 mg 5-22 by mouth. ity of tablet 00:00: [place] [facility] amitriptyli 2018-0 Yes 10mg Take 10 mg Univers ne 10 mg 5-22 by mouth. ity of tablet 00:00: [place] [facility] amitriptyli 2018-0 Yes 10mg Take 10 mg Univers ne 10 mg 5-22 by mouth. ity of tablet 00:00: [place] [facility] amitriptyli 2018-0 Yes 10mg Take 10 mg Univers ne 10 mg 5-22 by mouth. ity of tablet 00:00: [address] amitriptyli 2018-0 Yes 10mg Take 10 mg Univers ne 10 mg 5-22 by mouth. ity of tablet 00:00: [address] amitriptyli 2018-0 Yes 10mg Take 10 mg Univers ne 10 mg 12-07 by mouth. ity of tablet 00:00: [place] 00 [facility] amitriptyli 2022- No 10mg Take 10 mg Univers ne 10 mg 12-07 by mouth. ity o f tablet 00:00: 00:00 [place] 00 :00 Medical Branch amitriptyli 2022- No 10mg Take 10 mg Univers ne 10 mg 12-07 by mouth. ity o f tablet 00:00: 00:00 [place] 00 :00 Medical Branch amitriptyli 2022- No 10mg Take 10 mg Univers ne 10 mg 12-07 by mouth. ity o f tablet 00:00: 00:00 [place] 00 :00 Medical Branch amitriptyli 2022- No 10mg Take 10 mg Univers ne 10 mg 12-07 by mouth. ity o f tablet 00:00: 00:00 [place] 00 :00 Medical Branch amphetamine 2019- No [...] mg by ity of tablet 00:00: mouth. [place] 00 [facility] risperiDONE 2014-07 Yes .5mg Take 0.5 [place] 0.5 mg 0-15 mg by ity of tablet 00:00: mouth. [address] risperiDONE 2014-07 Yes .5mg Take 0.5 [place] 0.5 mg 0-15 mg by ity of tablet 00:00: mouth. [address] risperiDONE 2014-07 Yes .5mg Take 0.5 [place] 0.5 mg 0-15 mg by ity of tablet 00:00: mouth. [address] risperiDONE 2014-07 Yes .5mg Take 0.5 [place] 0.5 mg 0-15 mg by ity of tablet 00:00: mouth. [address] risperiDONE 2014-07 Yes .5mg Take 0.5 [place] 0.5 mg 0-15 mg by ity of tablet 00:00: mouth. [address] risperiDONE 2014-07 Yes .5mg Take 0.5 [place] 0.5 mg 0-15 mg by ity of tablet 00:00: mouth. [address] risperiDONE 2014-07 Yes .5mg Take 0.5 [place] 0.5 mg 0-15 mg by ity of tablet 00:00: mouth. [address] risperiDONE 2014-07 Yes .5mg Take 0.5 [place] 0.5 mg 0-15 mg by ity of tablet 00:00: mouth. [address] risperiDONE 2014-07 Yes .5mg Take 0.5 [place] 0.5 mg 0-15 mg by ity of tablet 00:00: mouth. [address] risperiDONE 2014-07 Yes .5mg Take 0.5 [place] 0.5 mg 0-15 mg by ity of tablet 00:00: mouth. [address] risperiDONE 2014-07 Yes .5mg Take 0.5 [place] 0.5 mg 0-15 mg by ity of tablet 00:00: mouth. [address] risperiDONE 2014-07 Yes .5mg Take 0.5 [place] 0.5 mg 0-15 mg by ity of tablet 00:00: mouth. [address] risperiDONE 2014-07 Yes .5mg Take 0.5 [place] 0.5 mg 0-15 mg by ity of tablet 00:00: mouth. [address] risperiDONE 2014-07 Yes .5mg Take 0.5 [place] 0.5 mg 0-15 mg by ity of tablet 00:00: mouth. [address] risperiDONE 2014- Yes .5mg Take 0.5 [place] 0.5 mg 0-15 mg by ity of tablet 00:00: mouth. [address] risperiDONE 2014- Yes .5mg Take 0.5 [place] 0.5 mg 0-15 mg by ity of tablet 00:00: mouth. [address] risperiDONE 2014- Yes .5mg Take 0.5 [place] 0.5 mg 0-15 mg by ity of tablet 00:00: mouth. [address] risperiDONE 2014- Yes .5mg Take 0.5 [place] 0.5 mg 0-15 mg by ity of tablet 00:00: mouth. [address] risperiDONE 2014- Yes .5mg Take 0.5 [place] 0.5 mg 0-15 mg by ity of tablet 00:00: mouth. [address] risperiDONE 2014- Yes .5mg Take 0.5 [place] 0.5 mg 0-15 mg by ity of tablet 00:00: mouth. [address] risperiDONE 2014-07 Yes .5mg Take 0.5 [place] 0.5 mg 0-15 mg by ity of tablet 00:00: mouth. [address] risperiDONE 2014- Yes .5mg Take 0.5 [place] 0.5 mg 0-15 mg by ity of tablet 00:00: mouth. [address] risperiDONE 2014-07 Yes .5mg Take 0.5 [place] 0.5 mg 0-15 mg by ity of tablet 00:00: mouth. [address] risperiDONE 2014- Yes .5mg Take 0.5 [place] 0.5 mg 0-15 mg by ity of tablet 00:00: mouth. [address] risperiDONE 2014- Yes .5mg Take 0.5 [place] 0.5 mg 0-15 mg by ity of tablet 00:00: mouth. [address] risperiDONE 2014- Yes .5mg Take 0.5 [place] 0.5 mg 0-15 mg by ity of tablet 00:00: mouth. [address] risperiDONE 2014-07 Yes .5mg Take 0.5 [place] 0.5 mg 0-15 mg by ity of tablet 00:00: mouth. [address] risperiDONE 2014-07 Yes .5mg Take 0.5 [place] 0.5 mg 0-15 mg by ity of tablet 00:00: mouth. [address] risperiDONE 2014-07 Yes .5mg Take 0.5 [place] 0.5 mg 0-15 mg by ity of tablet 00:00: mouth. [place] [facility] risperiDONE 2014-07 Yes .5mg Take 0.5 [place] 0.5 mg 0-15 mg by ity of tablet 00:00: mouth. [address] risperiDONE 2014-07 Yes .5mg Take 0.5 [place] 0.5 mg 0-15 mg by ity of tablet 00:00: mouth. [address] risperiDONE 2014-07 Yes .5mg Take 0.5 [place] 0.5 mg 0-15 mg by ity of tablet 00:00: mouth. [address] risperiDONE 2014-07 Yes .5mg Take 0.5 [place] 0.5 mg 0-15 mg by ity of tablet 00:00: mouth. [address] risperiDONE 2014-07 Yes .5mg Take 0.5 [place] 0.5 mg 0-15 mg by ity of tablet 00:00: mouth. [address] risperiDONE 2014-07 Yes .5mg Take 0.5 [place] 0.5 mg 0-15 mg by ity of tablet 00:00: mouth. [address] risperiDONE 2014-07 Yes .5mg Take 0.5 [place] 0.5 mg 0-15 mg by ity of tablet 00:00: mouth. [address] risperiDONE 2014-07 Yes .5mg Take 0.5 [place] 0.5 mg 0-15 mg by ity of tablet 00:00: mouth. [address] risperiDONE 2014-07 Yes .5mg Take 0.5 [place] 0.5 mg 0-15 mg by ity of tablet 00:00: mouth. [address] risperiDONE 2014-07 Yes .5mg Take 0.5 [place] 0.5 mg 0-15 mg by ity of tablet 00:00: mouth. [address] risperiDONE 2014-07 Yes .5mg Take 0.5 [place] 0.5 mg 0-15 mg by ity of tablet 00:00: mouth. [address] risperiDONE 2014-07 Yes .5mg Take 0.5 [place] 0.5 mg 0-15 mg by ity of tablet 00:00: mouth. [address] risperiDONE 2014-07 Yes .5mg Take 0.5 [place] 0.5 mg 0-15 mg by ity of tablet 00:00: mouth. [address] risperiDONE 2014-07 Yes .5mg Take 0.5 [place] 0.5 mg 0-15 mg by ity of tablet 00:00: mouth. [address] risperiDONE 2014-07 Yes .5mg Take 0.5 [place] 0.5 mg 0-15 mg by ity of tablet 00:00: mouth. [address] risperiDONE 2014-07 Yes .5mg Take 0.5 [place] 0.5 mg 0-15 mg by ity of tablet 00:00: mouth. [address] risperiDONE 2014-07 Yes .5mg Take 0.5 [place] 0.5 mg 0-15 mg by ity of tablet 00:00: mouth. [address] risperiDONE 2014-07 Yes .5mg Take 0.5 [place] 0.5 mg 0-15 mg by ity of tablet 00:00: mouth. [address] risperiDONE 2014-07 Yes .5mg Take 0.5 [place] 0.5 mg 0-15 mg by ity of tablet 00:00: mouth. [address] risperiDONE 2014-07 Yes .5mg Take 0.5 [place] 0.5 mg 0-15 mg by ity of tablet 00:00: mouth. [address] risperiDONE 2014-07 Yes .5mg Take 0.5 [place] 0.5 mg 0-15 mg by ity of tablet 00:00: mouth. [address] risperiDONE 2014-07 Yes .5mg Take 0.5 [place] 0.5 mg 0-15 mg by ity of tablet 00:00: mouth. [address] risperiDONE 2014-07 Yes .5mg Take 0.5 [place] 0.5 mg 0-15 mg by ity of tablet 00:00: mouth. [address] risperiDONE 2014-07 Yes .5mg Take 0.5 [place] 0.5 mg 0-15 mg by ity of tablet 00:00: mouth. [address] risperiDONE 2014-07 Yes .5mg Take 0.5 [place] 0.5 mg 0-15 mg by ity of tablet 00:00: mouth. [address] risperiDONE 2014-07 Yes .5mg Take 0.5 [place] 0.5 mg 0-15 mg by ity of tablet 00:00: mouth. [address] risperiDONE 2014-07 Yes .5mg Take 0.5 [place] 0.5 mg 0-15 mg by ity of tablet 00:00: mouth. [address] risperiDONE 2014-07 Yes .5mg Take 0.5 [place] 0.5 mg 0-15 mg by ity of tablet 00:00: mouth. [address] risperiDONE 2014-07 Yes .5mg Take 0.5 [place] 0.5 mg 0-15 mg by ity of tablet 00:00: mouth. [address] risperiDONE 2014-07 Yes .5mg Take 0.5 [place] 0.5 mg 0-15 mg by ity of tablet 00:00: mouth. [address] risperiDONE 2014-07 Yes .5mg Take 0.5 [place] 0.5 mg 0-15 mg by ity of tablet 00:00: mouth. [address] risperiDONE 2014-07 Yes .5mg Take 0.5 [place] 0.5 mg 0-15 mg by ity of tablet 00:00: mouth. [address] risperiDONE 2014-07 Yes .5mg Take 0.5 [place] 0.5 mg 0-15 mg by ity of tablet 00:00: mouth. [address] risperiDONE 2014-07 Yes .5mg Take 0.5 [place] 0.5 mg 0-15 mg by ity of tablet 00:00: mouth. [address] risperiDONE 2014-07 Yes .5mg Take 0.5 [place] 0.5 mg 0-15 mg by ity of tablet 00:00: mouth. [address] risperiDONE 2014-07 Yes .5mg Take 0.5 [place] 0.5 mg 0-15 mg by ity of tablet 00:00: mouth. [address] risperiDONE 2014-07 Yes .5mg Take 0.5 [place] 0.5 mg 0-15 mg by ity of tablet 00:00: mouth. [address] risperiDONE 2014-07 Yes .5mg Take 0.5 [place] 0.5 mg 0-15 mg by ity of tablet 00:00: mouth. [address] risperiDONE 2014-07 Yes .5mg Take 0.5 [place] 0.5 mg 0-15 mg by ity of tablet 00:00: mouth. [address] risperiDONE 2014-07 Yes .5mg Take 0.5 [place] 0.5 mg 0-15 mg by ity of tablet 00:00: mouth. [address] risperiDONE 2014-07 Yes .5mg Take 0.5 [place] 0.5 mg 0-15 mg by ity of tablet 00:00: mouth. [address] risperiDONE 2014-07 Yes .5mg Take 0.5 [place] 0.5 mg 0-15 mg by ity of tablet 00:00: mouth. [address] risperiDONE 2014-07 Yes .5mg Take 0.5 [place] 0.5 mg 0-15 mg by ity of tablet 00:00: mouth. [address] risperiDONE 2014-07 Yes .5mg Take 0.5 [place] 0.5 mg 0-15 mg by ity of tablet 00:00: mouth. [address] risperiDONE 2014-07 Yes .5mg Take 0.5 [place] 0.5 mg 0-15 mg by ity of tablet 00:00: mouth. [address] risperiDONE 2014-07 Yes .5mg Take 0.5 [place] 0.5 mg 0-15 mg by ity of tablet 00:00: mouth. [address] risperiDONE 2014-07 Yes .5mg Take 0.5 [place] 0.5 mg 0-15 mg by ity of tablet 00:00: mouth. [address] risperiDONE 2014-07 Yes .5mg Take 0.5 [place] 0.5 mg 0-15 mg by ity of tablet 00:00: mouth. [address] risperiDONE 2014-07 Yes .5mg Take 0.5 [place] 0.5 mg 0-15 mg by ity of tablet 00:00: mouth. [address] risperiDONE 2014-07 Yes .5mg Take 0.5 [place] 0.5 mg 0-15 mg by ity of tablet 00:00: mouth. [address] risperiDONE 2014-07 Yes .5mg Take 0.5 [place] 0.5 mg 0-15 mg by ity of tablet 00:00: mouth. [place] [facility] risperiDONE 2014- Yes .5mg Take 0.5 [place] 0.5 mg 0-15 mg by ity of tablet 00:00: mouth. [place] [facility] risperiDONE 2014- Yes .5mg Take 0.5 [place] 0.5 mg 0-15 mg by ity of tablet 00:00: mouth. [place] [facility] risperiDONE 2014- Yes .5mg Take 0.5 [place] 0.5 mg 0-15 mg by ity of tablet 00:00: mouth. [place] [facility] risperiDONE 2014- Yes .5mg Take 0.5 [place] 0.5 mg 0-15 mg by ity of tablet 00:00: mouth. [address] Branch risperiDONE 2014- Yes .5mg Take 0.5 [place] 0.5 mg 0-15 mg by ity of tablet 00:00: mouth. [place] [facility] risperiDONE 2014- Yes .5mg Take 0.5 [place] 0.5 mg 0-15 mg by ity of tablet 00:00: mouth. [place] [facility] risperiDONE 2014- Yes .5mg Take 0.5 [place] 0.5 mg 0-15 mg by ity of tablet 00:00: mouth. [place] [facility] risperiDONE 2014- Yes .5mg Take 1 [facility] 0.5 mg 0-15 tablet by ity of tablet 00:00: mouth in [place] [address] the Medical morning Branch and 1 tablet in the evening. risperiDONE 2014- Yes .5mg Take 1 [facility] ers 0.5 mg 0-15 tablet by ity of tablet 00:00: mouth in [place] [address] the Medical morning Branch and 1 tablet in the evening. risperiDONE 2014- Yes .5mg Take 1 [facility] 0.5 mg 0-15 tablet by ity of tablet 00:00: mouth in [place] [address] the Medical morning Branch and 1 tablet in the evening. risperiDONE 2014- Yes .5mg Take 1 [facility] 0.5 mg 0-15 tablet by ity of tablet 00:00: mouth in [place] [address] the Medical morning Branch and 1 tablet in the evening. risperiDONE 2014- Yes .5mg Take 1 [facility] 0.5 mg 0-15 tablet by ity of tablet 00:00: mouth in [place] [address] the Medical morning Branch and 1 tablet in the evening. risperiDONE 2015-1 Yes .5mg Take 1 [facility] 0.5 mg 0-15 tablet by ity of tablet 00:00: mouth in [place] 00 the Medical morning Branch and 1 tablet in the evening. risperiDONE 2015-1 Yes .5mg Take 1 [facility] 0.5 mg 0-15 tablet by ity of tablet 00:00: mouth in [place] 00 the Medical morning Branch and 1 tablet in the evening. risperiDONE 2015-1 Yes .5mg Take 1 [facility] 0.5 mg 0-15 tablet by ity of tablet 00:00: mouth in [place] 00 the Medical morning Branch and 1 tablet in the evening. risperiDONE 2015-1 Yes .5mg Take 1 [facility] 0.5 mg 0-15 tablet by ity of tablet 00:00: mouth in [place] 00 the Medical morning Branch and 1 tablet in the evening. risperiDONE 2015-1 Yes .5mg Take 1 [facility] 0.5 mg 0-15 tablet by ity of tablet 00:00: mouth in [place] 00 the Medical morning Branch and 1 tablet in the evening. risperiDONE 2015-1 Yes .5mg Take 1 [facility] 0.5 mg 0-15 tablet by ity of tablet 00:00: mouth in [place] 00 the Medical morning Branch and 1 tablet in the evening. risperiDONE 2015-1 Yes .5mg Take 1 [facility] 0.5 mg 0-15 tablet by ity of tablet 00:00: mouth in [place] 00 the Medical morning Branch and 1 tablet in the evening. risperiDONE 2015-1 Yes .5mg Take 1 [facility] 0.5 mg 0-15 tablet by ity of tablet 00:00: mouth in [place] 00 the Medical morning Branch and 1 tablet in the evening. risperiDONE 2015-1 Yes .5mg Take 1 [facility] 0.5 mg 0-15 tablet by ity of tablet 00:00: mouth in [place] 00 the Medical morning Branch and 1 tablet in the evening. risperiDONE 2015-1 Yes .5mg Take 1 [facility] 0.5 mg 0-15 tablet by ity of tablet 00:00: mouth in [place] 00 the Medical morning Branch and 1 tablet in the evening. risperiDONE 2015-1 Yes .5mg Take 1 [facility] 0.5 mg 0-15 tablet by ity of tablet 00:00: mouth in [place] 00 the Medical morning Branch and 1 tablet in the evening. risperiDONE 2015-1 Yes .5mg Take 1 [facility] 0.5 mg 0-15 tablet by ity of tablet 00:00: mouth in [place] 00 the Medical morning Branch and 1 tablet in the evening. risperiDONE 2015-1 Yes .5mg Take 1 [facility] 0.5 mg 0-15 tablet by ity of tablet 00:00: mouth in [place] [address] the Medical morning Branch and 1 tablet in the evening. risperiDONE 2015-1 Yes .5mg Take 1 [facility] 0.5 mg 0-15 tablet by ity of tablet 00:00: mouth in [place] [address] the Medical morning Branch and 1 tablet in the evening. risperiDONE 2015-1 Yes .5mg Take 1 [facility] 0.5 mg 0-15 tablet by ity of tablet 00:00: mouth in [place] [address] the Medical morning Branch and 1 tablet in the evening. risperiDONE 2015-1 Yes .5mg Take 1 [facility] 0.5 mg 0-15 tablet by ity of tablet 00:00: mouth in [place] [address] the Medical morning Branch and 1 tablet in the evening. risperiDONE 2014- Yes .5mg Take 1 [facility] 0.5 mg 0-15 tablet by ity of tablet 00:00: mouth in [place] [address] the Medical morning Branch and 1 tablet in the evening. risperiDONE 2015- Yes .5mg Take 1 [facility] 0.5 mg 0-15 tablet by ity of tablet 00:00: mouth in [place] [address] the Medical morning Branch and 1 tablet in the evening. risperiDONE 2015-1 Yes .5mg Take 1 [facility] 0.5 mg 0-15 tablet by ity of tablet 00:00: mouth in [place] [address] the Medical morning Branch and 1 tablet in the evening. risperiDONE 2015-1 Yes .5mg Take 1 [facility] 0.5 mg 0-15 tablet by ity of tablet 00:00: mouth in [place] [address] the Medical morning Branch and 1 tablet in the evening. risperiDONE 2015-1 Yes .5mg Take 1 [facility] 0.5 mg 0-15 tablet by ity of tablet 00:00: mouth in [place] [address] the Medical morning Branch and 1 tablet in the evening. risperiDONE 2015-1 Yes .5mg Take 1 [facility] ers 0.5 mg 0-15 tablet by ity of tablet 00:00: mouth in [place] [address] the Medical morning Branch and 1 tablet in the evening. risperiDONE 2015-1 Yes .5mg Take 1 [facility] ers 0.5 mg 0-15 tablet by ity of tablet 00:00: mouth in [place] 00 the Medical morning Branch and 1 tablet in the evening. risperiDONE 2014- Yes .5mg Take 1 [facility] 0.5 mg 0-15 tablet by ity of tablet 00:00: mouth in [place] 00 the Medical morning Branch and 1 tablet in the evening. risperiDONE 2015-1 Yes .5mg Take 1 [facility] 0.5 mg 0-15 tablet by ity of tablet 00:00: mouth in [place] 00 the Medical morning Branch and 1 tablet in the evening. risperiDONE 2015- Yes .5mg Take 1 [facility] 0.5 mg 0-15 tablet by ity of tablet 00:00: mouth in [place] 00 the Medical morning Branch and 1 tablet in the evening. risperiDONE 2014- Yes .5mg Take 1 [facility] 0.5 mg 0-15 tablet by ity of tablet 00:00: mouth in [place] 00 the Medical morning Branch and 1 tablet in the evening. risperiDONE 2014- Yes .5mg Take 1 [facility] 0.5 mg 0-15 tablet by ity of tablet 00:00: mouth in [place] 00 the Medical morning Branch and 1 tablet in the evening. risperiDONE 2014- Yes .5mg Take 1 [facility] 0.5 mg 0-15 tablet by ity of tablet 00:00: mouth in [place] 00 the Medical morning Branch and 1 tablet in the evening. risperiDONE 2015- Yes .5mg Take 1 [facility] 0.5 mg 0-15 tablet by ity of tablet 00:00: mouth in [place] 00 the Medical morning Branch and 1 tablet in the evening. risperiDONE 2014- Yes .5mg Take 1 [facility] 0.5 mg 0-15 tablet by ity of tablet 00:00: mouth in [place] 00 the Medical morning Branch and 1 tablet in the evening. risperiDONE 2015-1 Yes .5mg Take 1 [facility] 0.5 mg 0-15 tablet by ity of tablet 00:00: mouth in [place] 00 the Medical morning Branch and 1 tablet in the evening. risperiDONE 2015-1 Yes .5mg Take 1 [facility] 0.5 mg 0-15 tablet by ity of tablet 00:00: mouth in [place] 00 the Medical morning Branch and 1 tablet in the evening. risperiDONE 2014-1 Yes .5mg Take 1 [facility] 0.5 mg 0-15 tablet by ity of tablet 00:00: mouth in [place] 00 the Medical morning Branch and 1 tablet in the evening. risperiDONE 2014-07 Yes .5mg Take 1 [facility] 0.5 mg 0-15 tablet by ity of tablet 00:00: mouth in [place] [address] the Medical morning Branch and 1 tablet in the evening. risperiDONE 2014-07 Yes .5mg Take 1 [facility] 0.5 mg 0-15 tablet by ity of tablet 00:00: mouth in [place] [address] the Medical morning Branch and 1 tablet in the evening. risperiDONE 2014-07 Yes .5mg Take 1 [facility] 0.5 mg 0-15 tablet by ity of tablet 00:00: mouth in [place] [address] the Medical morning [place] and 1 tablet in the evening. risperiDONE 2014-07 Yes .5mg Take 1 [facility] 0.5 mg 0-15 tablet by ity of tablet 00:00: mouth in [place] [address] the Medical morning [place] and 1 tablet in the evening. ranitidine Yes [facility] (ZANTAC) 15 7-31 ity of mg/mL syrup 00:00: [place] 00 [facility] ranitidine 0 Yes Univers (ZANTAC) 15 7-31 ity of mg/mL syrup 00:00: [place] [facility] ranitidine Yes Univers (ZANTAC) 15 7-31 ity of mg/mL syrup 00:00: [address] ranitidine 0 Yes Univers (ZANTAC) 15 7-31 ity of mg/mL syrup 00:00: [place] 00 [facility] ranitidine 0 Yes Univers (ZANTAC) 15 7-31 ity of mg/mL syrup 00:00: [place] 00 [facility] ranitidine 0 Yes Univers (ZANTAC) 15 7-31 ity of mg/mL syrup 00:00: [place] [facility] ranitidine 0 Yes Univers (ZANTAC) 15 7-31 ity of mg/mL syrup 00:00: [place] 00 [facility] ranitidine 0 Yes Univers (ZANTAC) 15 7-31 ity of mg/mL syrup 00:00: [place] [facility] ranitidine 0 Yes Univers (ZANTAC) 15 7-31 ity of mg/mL syrup 00:00: [address] ranitidine 0 Yes Univers (ZANTAC) 15 7-31 ity of mg/mL syrup 00:00: [place] 00 [facility] ranitidine 0 Yes Univers [...] 15 7-31 ity of mg/mL syrup 00:00: [place] [facility] ranitidine 0 Yes Univers (ZANTAC) [...] 15 7-31 ity of mg/mL syrup 00:00: [place] [facility] ranitidine 0 Yes Univers (ZANTAC) 15 7-31 ity of mg/mL syrup 00:00: [place] [facility] ranitidine 0 Yes Univers (ZANTAC) [...] 15 7-31 ity of mg/mL syrup 00:00: [place] [facility] ranitidine 2013-0 Yes Univers (ZANTAC) [...] Medical Branch ranitidine Yes Univers (ZANTAC) 15 7- ity of mg/mL syrup 00:00: [place] 00 [facility] Branch ranitidine Yes [facility] (ZANTAC) 15 7- ity of mg/mL syrup 00:00: [place] 00 Medical Branch ranitidine 0 2022- No Univer s (ZANTAC) 15 02-15 ity of mg/mL syrup 00:00: 00:00 [place] 00 :00 Medical Branch ranitidine 0 2022- No Un[facility] s (ZANTAC) 15 02-15 ity of mg/mL syrup 00:00: 00:00 [place] 00 :00 Medical Branch ranitidine 0 2022- No Un[facility] s (ZANTAC) 15 02-15 ity of mg/mL syrup 00:00: 00:00 [place] 00 :00 Medical Branch ranitidine 0 2022- No Univer s (ZANTAC) 15 02-15 ity of mg/mL syrup 00:00: 00:00 [place] 00 :00 Medical Branch DDAVP 10 2019- No Univers mcg/spray 4-21 04-24 ity of solution 00:00: 00:00 [place] 00 :00 Medical Branch MULTIVITAMI 2009-0 Yes one daily U nivers N ORAL TAB 2-19 ity of 00:00: [place] 00 Medical Branch MULTIVITAMI 2009-0 Yes one daily U nivers N ORAL TAB 2-19 ity of 00:00: [place] 00 [facility] Branch MULTIVITAMI 2009-0 Yes one daily U nivers N ORAL TAB 2-19 ity of 00:00: [place] 00 [facility] Branch MULTIVITAMI 2009-0 Yes one daily U nivers N ORAL TAB 2-19 ity of 00:00: [place] 00 [facility] Branch MULTIVITAMI 2008-0 Yes one daily U nivers N ORAL TAB 2-19 ity of 00:00: [place] 00 [facility] Branch MULTIVITAMI 2008-0 Yes one daily U nivers N ORAL TAB 2-19 ity of 00:00: [place] 00 [facility] Branch MULTIVITAMI 2008-0 Yes one daily U nivers N ORAL TAB 2-19 ity of 00:00: [place] 00 [facility] Branch MULTIVITAMI 2009-0 Yes one daily U nivers N ORAL TAB 2-19 ity of 00:00: [place] 00 [facility] Branch MULTIVITAMI 2008-0 Yes one daily U nivers N ORAL TAB 2-19 ity of 00:00: [place] 00 [facility] Branch MULTIVITAMI 2009-0 Yes one daily U nivers N ORAL TAB 2-19 ity of 00:00: [place] 00 [facility] Branch MULTIVITAMI 2008-0 Yes one daily U nivers N ORAL TAB 2-19 ity of 00:00: [place] 00 [facility] MULTIVITAMI 2009-0 Yes one daily U nivers N ORAL TAB 2-19 ity of 00:00: [place] 00 [facility] Branch MULTIVITAMI 2009-0 Yes one daily U nivers N ORAL TAB 2-19 ity of 00:00: [place] 00 [facility] Branch MULTIVITAMI 2008-0 Yes one daily U nivers N ORAL TAB 2-19 ity of 00:00: [place] 00 [facility] Branch MULTIVITAMI 2008-0 Yes one daily U nivers N ORAL TAB 2-19 ity of 00:00: [place] 00 [facility] Branch MULTIVITAMI 2008-0 Yes one daily U nivers N ORAL TAB 2-19 ity of 00:00: [place] 00 [facility] Branch MULTIVITAMI 2008-0 Yes one daily U nivers N ORAL TAB 2-19 ity of 00:00: [place] 00 [facility] MULTIVITAMI 2009-0 Yes one daily U nivers N ORAL TAB 2-19 ity of 00:00: [place] [facility] MULTIVITAMI 2009-0 Yes one daily U nivers N ORAL TAB 2-19 ity of 00:00: [place] [facility] MULTIVITAMI 2009-0 Yes one daily U nivers N ORAL TAB 2-19 ity of 00:00: [place] [facility] MULTIVITAMI 2009-0 Yes one daily U nivers N ORAL TAB 2-19 ity of 00:00: [place] [facility] MULTIVITAMI 2009-0 Yes one daily U nivers N ORAL TAB 2-19 ity of 00:00: [place] [facility] MULTIVITAMI 2009-0 Yes one daily U nivers N ORAL TAB 2-19 ity of :: [place] [facility] MULTIVITAMI 2008-0 Yes one daily U nivers N ORAL TAB 2-19 ity of 00:00: [place] [facility] MULTIVITAMI 2009-0 Yes one daily U nivers N ORAL TAB 2-19 ity of :00: [place] [facility] MULTIVITAMI 2008-0 Yes one daily U nivers N ORAL TAB 2-19 ity of 00:00: [place] [facility] MULTIVITAMI 2009-0 Yes one daily U nivers N ORAL TAB 2-19 ity of :00: [place] [facility] MULTIVITAMI 2009-0 Yes one daily U nivers N ORAL TAB 2-19 ity of 00:00: [place] [facility] MULTIVITAMI 2009-0 Yes one daily U nivers N ORAL TAB 2-19 ity of 00:00: [place] [facility] MULTIVITAMI 2009-0 Yes one daily U nivers N ORAL TAB 2-19 ity of 00:00: [place] [facility] MULTIVITAMI 2009-0 Yes one daily U nivers N ORAL TAB 2-19 ity of 00:00: [place] [facility] MULTIVITAMI 2009-0 Yes one daily U nivers N ORAL TAB 2-19 ity of 00:00: [place] [facility] MULTIVITAMI 2008-0 Yes one daily U nivers N ORAL TAB 2-19 ity of 00:00: [place] [facility] MULTIVITAMI 2008-0 Yes one daily U nivers N ORAL TAB 2-19 ity of 00:00: [place] 00 [facility] MULTIVITAMI 2009-0 Yes one daily U nivers N ORAL TAB 2-19 ity of 00:00: [place] 00 [facility] MULTIVITAMI 2009-0 Yes one daily U nivers N ORAL TAB 2-19 ity of 00:00: [place] [facility] MULTIVITAMI 2009-0 Yes one daily U nivers N ORAL TAB 2-19 ity of 00:00: [place] [facility] MULTIVITAMI 2009-0 Yes one daily U nivers N ORAL TAB 2-19 ity of 00:00: [place] 00 [facility] MULTIVITAMI 2009-0 Yes one daily U nivers N ORAL TAB 2-19 ity of 00:00: [place] [facility] MULTIVITAMI 2009-0 Yes one daily U nivers N ORAL TAB 2-19 ity of 00:00: [place] [facility] MULTIVITAMI 2009-0 Yes one daily U nivers N ORAL TAB 2-19 ity of 00:00: [place] 00 [facility] MULTIVITAMI 2009-0 Yes one daily U nivers N ORAL TAB 2-19 ity of 00:00: [place] 00 [facility] MULTIVITAMI 2009-0 Yes one daily U nivers N ORAL TAB 2-19 ity of 00:00: [place] [facility] MULTIVITAMI 2009-0 Yes one daily U nivers N ORAL TAB 2-19 ity of 00:00: [place] 00 [facility] MULTIVITAMI 2009-0 Yes one daily U nivers N ORAL TAB 2-19 ity of 00:00: [place] 00 [facility] MULTIVITAMI 2009-0 Yes one daily U nivers N ORAL TAB 2-19 ity of 00:00: [place] 00 [facility] MULTIVITAMI 2009-0 Yes one daily U nivers N ORAL TAB 2-19 ity of 00:00: [place] 00 [facility] MULTIVITAMI 2009-0 Yes one daily U nivers N ORAL TAB 2-19 ity of 00:00: [place] 00 [facility] MULTIVITAMI 2009-0 Yes one daily U nivers N ORAL TAB 2-19 ity of 00:00: [place] 00 [facility] MULTIVITAMI 2009-0 Yes one daily U nivers N ORAL TAB 2-19 ity of 00:00: [place] 00 [facility] MULTIVITAMI 2009-0 Yes one daily U nivers N ORAL TAB 2-19 ity of 00:00: [place] 00 [facility] MULTIVITAMI 2009-0 Yes one daily U nivers N ORAL TAB 2-19 ity of 00:00: [place] 00 [facility] MULTIVITAMI 2009-0 Yes one daily U nivers N ORAL TAB 2-19 ity of 00:00: [place] [facility] MULTIVITAMI 2009-0 Yes one daily U nivers N ORAL TAB 2-19 ity of 00:00: [place] [facility] MULTIVITAMI 2009-0 Yes one daily U nivers N ORAL TAB 2-19 ity of 00:00: [place] [facility] MULTIVITAMI 2009-0 Yes one daily U nivers N ORAL TAB 2-19 ity of 00:00: [place] [facility] MULTIVITAMI 2009-0 Yes one daily U nivers N ORAL TAB 2-19 ity of :00: [place] [facility] MULTIVITAMI 2009-0 Yes one daily U nivers N ORAL TAB 2-19 ity of 00:00: [place] 00 [facility] MULTIVITAMI 2009-0 Yes one daily U nivers N ORAL TAB 2-19 ity of :00: [place] [facility] MULTIVITAMI 2009-0 Yes one daily U nivers N ORAL TAB 2-19 ity of 00:00: [place] [facility] MULTIVITAMI 2009-0 Yes one daily U n[facility] N ORAL TAB 2-19 ity of :00: [place] [facility] MULTIVITAMI 2009-0 Yes one daily U n[facility] N ORAL TAB 2-19 ity of :00: [place] [facility] MULTIVITAMI 2009-0 Yes one daily U nivers N ORAL TAB 2-19 ity of 00:00: [place] 00 [facility] MULTIVITAMI 2009-0 Yes one daily U nivers N ORAL TAB 2-19 ity of 00:00: [place] [facility] MULTIVITAMI 2009-0 Yes one daily U nivers N ORAL TAB 2-19 ity of 00:00: [place] 00 [facility] MULTIVITAMI 2009-0 Yes one daily U nivers N ORAL TAB 2-19 ity of 00:00: [place] 00 [facility] MULTIVITAMI 2008-0 Yes one daily [facility] n[facility] N ORAL TAB 2-19 ity of 00:00: [place] 00 [facility] MULTIVITAMI 2008-0 Yes one daily U nivers N ORAL TAB 2-19 ity of 00:00: [place] 00 [facility] MULTIVITAMI 2008-0 Yes one daily U nivers N ORAL TAB 2-19 ity of 00:00: [place] 00 [facility] MULTIVITAMI 2009-0 Yes one daily U nivers N ORAL TAB 2-19 ity of 00:00: [place] [facility] MULTIVITAMI 2009-0 Yes one daily U nivers N ORAL TAB 2-19 ity of 00:00: [place] [facility] MULTIVITAMI 2009-0 Yes one daily U nivers N ORAL TAB 2-19 ity of 00:00: [place] [facility] MULTIVITAMI 2009-0 Yes one daily U nivers N ORAL TAB 2-19 ity of 00:00: [place] [facility] MULTIVITAMI 2008-0 Yes one daily U nivers N ORAL TAB 2-19 ity of 00:00: [place] [facility] MULTIVITAMI 2009-0 Yes one daily U nivers N ORAL TAB 2-19 ity of 00:00: [place] [facility] MULTIVITAMI 2008-0 Yes one daily U nivers N ORAL TAB 2-19 ity of 00:00: [place] 00 [facility] MULTIVITAMI 2009-0 Yes one daily U nivers N ORAL TAB 2-19 ity of :00: [place] [facility] MULTIVITAMI 2008-0 Yes one daily U nivers N ORAL TAB 2-19 ity of 00:00: [place] 00 [facility] MULTIVITAMI 2009-0 Yes one daily U nivers N ORAL TAB 2-19 ity of 00:00: [place] [facility] MULTIVITAMI 2008-0 Yes one daily U nivers N ORAL TAB 2-19 ity of 00:00: [place] 00 [facility] MULTIVITAMI 2009-0 Yes one daily U nivers N ORAL TAB 2-19 ity of 00:00: [place] 00 [facility] MULTIVITAMI 2009-0 Yes one daily U nivers N ORAL TAB 2-19 ity of 00:00: [place] 00 [facility] MULTIVITAMI 2009-0 Yes one daily U nivers N ORAL TAB 2-19 ity of 00:00: [place] 00 [facility] MULTIVITAMI 2008-0 Yes one daily U nivers N ORAL TAB 2-19 ity of 00:00: [place] 00 [facility] MULTIVITAMI 2008-0 Yes one daily U nivers N ORAL TAB 2-19 ity of 00:00: [place] 00 [facility] MULTIVITAMI 2008-0 Yes one daily U nivers N ORAL TAB 2-19 ity of 00:00: [place] 00 [facility] MULTIVITAMI 2009-0 Yes one daily U nivers N ORAL TAB 2-19 ity of 00:00: [place] [facility] MULTIVITAMI 2009-0 Yes one daily U nivers N ORAL TAB 2-19 ity of 00:00: [place] [facility] MULTIVITAMI 2009-0 Yes one daily U n[facility] N ORAL TAB 2-19 ity of 00:00: [place] [facility] MULTIVITAMI 2009-0 Yes one daily U nivers N ORAL TAB 2-19 ity of 00:00: [place] [facility] MULTIVITAMI 2009-0 Yes one daily U n[facility] N ORAL TAB 2-19 ity of 00:00: [place] [facility] MULTIVITAMI 2009-0 Yes one daily U n[facility] N ORAL TAB 2-19 ity of :00: [place] [facility] MULTIVITAMI 2008-0 Yes one daily U n[facility] N ORAL TAB 2-19 ity of 00:00: [place] [facility] MULTIVITAMI 2009-0 Yes one daily U n[facility] N ORAL TAB 2-19 ity of :00: [place] [facility] MULTIVITAMI 2008-0 Yes one daily U n[facility] N ORAL TAB 2-19 ity of 00:00: [place] [facility] MULTIVITAMI 2009-0 Yes one daily U n[facility] N ORAL TAB 2-19 ity of :00: [place] [facility] MULTIVITAMI 2009-0 Yes one daily U n[facility] N ORAL TAB 2-19 ity of 00:00: [place] [facility] MULTIVITAMI 2009-0 Yes one daily U n[facility] N ORAL TAB 2-19 ity of 00:00: [place] [facility] MULTIVITAMI 2009-0 Yes one daily U n[facility] N ORAL TAB 2-19 ity of 00:00: [place] 00 [facility] MULTIVITAMI 2009-0 Yes one daily U n[facility] N ORAL TAB 2-19 ity of 00:00: [place] [facility] MULTIVITAMI 2009-0 Yes one daily U nivers N ORAL TAB 2-19 ity of 00:00: [place] [facility] MULTIVITAMI 2008-0 Yes one daily U nivers N ORAL TAB 2-19 ity of 00:00: [place] 00 [facility] MULTIVITAMI 2008-0 Yes one daily U nivers N ORAL TAB 2-19 ity of 00:00: [place] 00 [facility] MULTIVITAMI 2009-0 Yes one daily U n[facility] N ORAL TAB 2-19 ity of 00:00: [place] 00 [facility] MULTIVITAMI 2009-0 Yes one daily U n[facility] N ORAL TAB 2-19 ity of 00:00: [place] [facility] MULTIVITAMI 2009-0 Yes one daily U n[facility] N ORAL TAB 2-19 ity of 00:00: [place] [facility] MULTIVITAMI 2009-0 Yes one daily U n[facility] N ORAL TAB 2-19 ity of 00:00: [place] 00 [facility] MULTIVITAMI 2009-0 Yes one daily U nivers N ORAL TAB 2-19 ity of 00:00: [place] [facility] MULTIVITAMI 2009-0 Yes one daily U n[facility] N ORAL TAB 2-19 ity of 00:00: [place] [facility] MULTIVITAMI 2009-0 Yes one daily U n[facility] N ORAL TAB 2-19 ity of 00:00: [place] 00 [facility] MULTIVITAMI 2009-0 Yes one daily U n[facility] N ORAL TAB 2-19 ity of 00:00: [place] 00 [facility] MULTIVITAMI 2009-0 Yes one daily U nivers N ORAL TAB 2-19 ity of 00:00: [place] 00 [facility] MULTIVITAMI 2009-0 Yes one daily [facility] n[facility] N ORAL TAB 2-19 ity of 00:00: [place] 00 [facility] MULTIVITAMI 2009-0 Yes one daily [facility] n[facility] N ORAL TAB 2-19 ity of 00:00: [place] 00 [facility] MULTIVITAMI 2009-0 Yes one daily [facility] n[facility] N ORAL TAB 2-19 ity of 00:00: [place] 00 [facility] MULTIVITAMI 2009-0 Yes one daily [facility] n[facility] N ORAL TAB 2-19 ity of 00:00: [place] 00 [facility] MULTIVITAMI 2009-0 Yes one daily [facility] n[facility] N ORAL TAB 2-19 ity of 00:00: [place] 00 [facility] MULTIVITAMI 2009-0 Yes one daily U n[facility] N ORAL TAB 2-19 ity of 00:00: [place] 00 [facility] MULTIVITAMI 2009-0 Yes one daily [facility] n[facility] N ORAL TAB 2-19 ity of 00:00: [place] 00 [facility] MULTIVITAMI 2009-0 Yes one daily U n[facility] N ORAL TAB 2-19 ity of 00:00: [place] 00 [facility] MULTIVITAMI 2009-0 Yes one daily U nivers N ORAL TAB 2-19 ity of 00:00: [place] 00 [facility] MULTIVITAMI 2009-0 Yes one daily [facility] n[facility] N ORAL TAB 2-19 ity of 00:00: [place] [facility] MULTIVITAMI 2009-0 Yes one daily U n[facility] N ORAL TAB 2-19 ity of 00:00: [place] [facility] MULTIVITAMI 2009-0 Yes one daily U n[facility] N ORAL TAB 2-19 ity of 00:00: [place] [facility] MULTIVITAMI 2009-0 Yes one daily U nivers N ORAL TAB 2-19 ity of 00:00: [place] [facility] MULTIVITAMI 2009-0 Yes one daily U nivers N ORAL TAB 2-19 ity of :: [place] [facility] MULTIVITAMI 2009-0 Yes one daily U nivers N ORAL TAB 2-19 ity of 00:00: [place] 00 [facility] MULTIVITAMI 2009-0 Yes one daily U nivers N ORAL TAB 2-19 ity of :00: [place] 00 [facility] MULTIVITAMI 2009-0 Yes one daily U nivers N ORAL TAB 2-19 ity of 00:00: [place] [facility] MULTIVITAMI 2009-0 Yes one daily U nivers N ORAL TAB 2-19 ity of 00:00: [place] 00 [facility] MULTIVITAMI 2009-0 Yes one daily U nivers N ORAL TAB 2-19 ity of :00: [facility] MULTIVITAMI 2009-0 Yes one daily U nivers N ORAL TAB 2-19 ity of 00:00: [facility] MULTIVITAMI 2009-0 Yes one daily U nivers N ORAL TAB 2-19 ity of 00:00: [facility] MULTIVITAMI 2009-0 Yes one daily U nivers N ORAL TAB 2-19 ity of 00:00: [facility] MULTIVITAMI 2009-0 Yes one daily U nivers N ORAL TAB 2-19 ity of 00:00: [facility] MULTIVITAMI 2009-0 Yes one daily U nivers N ORAL TAB 2-19 ity of 00:00: [facility] MULTIVITAMI 2008-0 Yes one daily U nivers N ORAL TAB 2-19 ity of 00:00: [facility] MULTIVITAMI 2008-0 Yes one daily U nivers N ORAL TAB 2-19 ity of 00:00: [facility] MULTIVITAMI 2009-0 Yes one daily U nivers N ORAL TAB 2-19 ity of 00:00: [facility] MULTIVITAMI 2009-0 Yes one daily U nivers N ORAL TAB 2-19 ity of 00:00: [facility] MULTIVITAMI 2009-0 Yes one daily U nivers N ORAL TAB 2-19 ity of 00:00: [facility] MULTIVITAMI 2009-0 Yes one daily U nivers N ORAL TAB 2-19 ity of 00:00: [facility] MULTIVITAMI 2008-0 Yes one daily U nivers N ORAL TAB 2-19 ity of 00:00: [facility] MULTIVITAMI 2009- Yes one daily U nivers N ORAL TAB 2-19 ity of 00:00: [facility] MULTIVITAMI 2008-0 Yes one daily U nivers N ORAL TAB 2-19 ity of 00:00: [facility] MULTIVITAMI 2009-0 Yes one daily U nivers N ORAL TAB 2-19 ity of :00: [facility] MULTIVITAMI 2008- Yes one daily U nivers N ORAL TAB 2-19 ity of 00:00: [facility] MULTIVITAMI 2009-0 Yes one daily U nivers N ORAL TAB 2-19 ity of 00:00: [facility] MULTIVITAMI 2008-0 Yes one daily U nivers N ORAL TAB 2-19 ity of 00:00: [facility] MULTIVITAMI 2009-0 Yes one daily U nivers N ORAL TAB 2-19 ity of 00:00: [facility] MULTIVITAMI 2009-0 Yes one daily U nivers N ORAL TAB 2-19 ity of 00:00: [facility] MULTIVITAMI 2009-0 Yes one daily U nivers N ORAL TAB 2-19 ity of 00:00: [facility] MULTIVITAMI 2008-0 Yes one daily U nivers N ORAL TAB 2-19 ity of 00:00: [facility] MULTIVITAMI 2008-0 Yes one daily U nivers N ORAL TAB 2-19 ity of 00:00: [facility] MULTIVITAMI 2008-0 Yes one daily U nivers N ORAL TAB 2-19 ity of 00:00: [facility] MULTIVITAMI 2009-0 Yes one daily U nivers N ORAL TAB 2-19 ity of 00:00: [facility] MULTIVITAMI 2009-0 Yes one daily U nivers N ORAL TAB 2-19 ity of 00:00: [facility] MULTIVITAMI 2009-0 Yes one daily U nivers N ORAL TAB 2-19 ity of 00:00: [facility] MULTIVITAMI 2009-0 Yes one daily U nivers N ORAL TAB 2-19 ity of 00:00: [facility] MULTIVITAMI 2009-0 Yes one daily U nivers N ORAL TAB 2-19 ity of 00:00: [facility] MULTIVITAMI 2009-0 Yes one daily U nivers N ORAL TAB 2-19 ity of :00: [facility] MULTIVITAMI 2008-0 Yes one daily U nivers N ORAL TAB 2-19 ity of 00:00: [facility] MULTIVITAMI 2009-0 Yes one daily U nivers N ORAL TAB 2-19 ity of :00: [facility] MULTIVITAMI 2008- Yes one daily U nivers N ORAL TAB 2-19 ity of 00:00: [facility] MULTIVITAMI 2009-0 Yes one daily U nivers N ORAL TAB 2-19 ity of :00: [facility] MULTIVITAMI 2009-0 Yes one daily U nivers N ORAL TAB 2-19 ity of 00:00: [facility] MULTIVITAMI 2009-0 Yes one daily U nivers N ORAL TAB 2-19 ity of 00:00: [facility] MULTIVITAMI 2009-0 Yes one daily U nivers N ORAL TAB 2-19 ity of 00:00: [facility] MULTIVITAMI 2009-0 Yes one daily U nivers N ORAL TAB 2-19 ity of 00:00: [facility] MULTIVITAMI 2009-0 Yes one daily U nivers N ORAL TAB 2-19 ity of 00:00: [facility] MULTIVITAMI 2008-0 Yes one daily U nivers N ORAL TAB 2-19 ity of 00:00: [facility] MULTIVITAMI 2008-0 Yes one [...] N ORAL TAB 2-19 ity of 00:00: [facility] MULTIVITAMI 2009-0 Yes one daily U nivers N ORAL TAB 2-19 ity of 00:00: [facility] MULTIVITAMI 2009-0 Yes one daily U nivers N ORAL TAB 2-19 ity of 00:00: [facility] MULTIVITAMI 2009-0 Yes one daily U nivers N ORAL TAB 2-19 ity of 00:00: [facility] MULTIVITAMI 2008-0 Yes one daily U nivers N ORAL TAB 2-19 ity of 00:00: [facility] MULTIVITAMI 2009-0 Yes one daily U nivers N ORAL TAB 2-19 ity of 00:00: [facility] MULTIVITAMI 2008-0 Yes one daily U nivers N ORAL TAB 2-19 ity of 00:00: [facility] MULTIVITAMI 2008-0 Yes one daily U nivers N ORAL TAB 2-19 ity of 00:00: [place] [facility] MULTIVITAMI 2008-0 Yes one daily U nivers N ORAL TAB 2-19 ity of 00:00: [facility] MULTIVITAMI 2008-0 Yes one daily U nivers N ORAL TAB 2-19 ity of 00:00: [place] [facility] MULTIVITAMI 2009-0 Yes one daily U nivers N ORAL TAB 2-19 ity of 00:00: [facility] MULTIVITAMI 0 Yes one daily U nivers N ORAL TAB 2-19 ity of 00:00: [facility] Immunizations Ordered Filled Immunization Date Status Comments [facility] e Immunization Name Name HPV9 2016-04-01 Completed [place] [facility] 00[facility]00:00 [facility] HPV9 2016-04-01 Completed [facility] 00[facility]00:00 [facility] HPV9 2016-04-01 Completed [facility] 00[facility]00:00 [facility] HPV9 2016-04-01 Completed [facility] 00:00:00 [facility] HPV9 2016-04-01 Completed [facility] 00:[facility]:00 [facility] HPV9 2016-04-01 Completed [facility] 00:00:00 [facility] HPV9 2016-04-01 Completed [facility] 00:00:00 [facility] HPV9 2016-04-01 Completed [facility] 00:00:00 [facility] HPV9 2016-04-01 Completed [facility] 00:00:00 [facility] HPV9 2016-04-01 Completed [facility] 00:00:00 [facility] HPV9 2016-04-01 Completed [facility] 00:00:00 [facility] HPV9 2016-04-01 Completed [facility] 00:00:00 [facility] HPV9 2016-04-01 Completed [facility] 00:00:00 [facility] HPV9 2016-04-01 Completed [facility] 00:00:00 [facility] HPV9 2016-04-01 Completed [facility] 00:00:00 [facility] HPV9 2016-04-01 Completed [facility] 00:00:00 [facility] HPV9 2016-04-01 Completed [facility] 00:00:00 [facility] HPV9 2016-04-01 Completed [facility] 00:00:00 [facility] HPV9 2016-04-01 Completed [facility] 00:00:00 [facility] HPV9 2016-04-01 Completed [facility] 00:00:00 [facility] HPV9 2016-04-01 Completed [facility] 00:00:00 [facility] HPV9 2016-04-01 Completed [facility] 00:00:00 [facility] HPV9 2016-04-01 Completed [facility] 00:00:00 [facility] HPV9 2016-04-01 Completed [facility] 00:00:00 [facility] HPV9 2016-04-01 Completed [facility] 00:00:00 [facility] HPV9 2016-04-01 Completed [facility] 00:00:00 [facility] HPV9 2016-04-01 Completed [facility] 00:00:00 [facility] HPV9 2016-04-01 Completed [facility] 00:00:00 [facility] HPV9 2016-04-01 Completed [facility] 00:00:00 [facility] HPV9 2016-04-01 Completed [facility] 00:00:00 [facility] HPV9 2016-04-01 Completed [facility] 00:00:00 [facility] HPV9 2016-04-01 Completed [facility] 00:00:00 [facility] HPV9 2016-04-01 Completed [facility] 00:00:00 [facility] HPV9 2016-04-01 Completed [facility] 00:00:00 [facility] HPV9 2016-04-01 Completed [facility] 00:00:00 [facility] HPV9 2016-04-01 Completed [facility] 00:00:00 [facility] HPV9 2016-04-01 Completed [facility] 00:00:00 [facility] HPV9 2016-04-01 Completed [facility] 00:00:00 [facility] HPV9 2016-04-01 Completed [facility] 00:00:00 [facility] HPV9 2016-04-01 Completed [facility] 00:00:00 [facility] HPV9 2016-04-01 Completed [facility] 00:00:00 [facility] HPV9 2016-04-01 Completed [facility] 00:00:00 [facility] HPV9 2016-04-01 Completed [facility] 00:00:00 [facility] HPV9 2016-04-01 Completed [facility] 00:00:00 [facility] HPV9 2016-04-01 Completed [facility] 00:00:00 [facility] HPV9 2016-04-01 Completed [facility] 00:00:00 [facility] HPV9 2016-04-01 Completed [facility] 00:00:00 [facility] HPV9 2016-04-01 Completed [facility] 00:00:00 [facility] HPV9 2016-04-01 Completed [facility] 00:00:00 [facility] HPV9 2016-04-01 Completed [facility] 00:00:00 [facility] HPV9 2016-04-01 Completed [facility] 00:00:00 [facility] HPV9 2016-04-01 Completed [facility] 00:00:00 [facility] HPV9 2016-04-01 Completed [facility] 00:00:00 [facility] HPV9 2016-04-01 Completed [facility] 00:00:00 [facility] HPV9 2016-04-01 Completed [facility] 00:00:00 [facility] HPV9 2016-04-01 Completed [facility] 00:00:00 [facility] HPV9 2016-04-01 Completed [facility] 00:00:00 [facility] HPV9 2016-04-01 Completed [facility] 00:00:00 [facility] HPV9 2016-04-01 Completed [facility] 00:00:00 [facility] HPV9 2016-04-01 Completed [facility] 00:00:00 [facility] HPV9 2016-04-01 Completed [facility] 00:00:00 [facility] HPV9 2016-04-01 Completed [facility] 00:00:00 [facility] HPV9 2016-04-01 Completed [facility] 00:00:00 [facility] HPV9 2016-04-01 Completed [facility] 00:00:00 [facility] HPV9 2016-04-01 Completed [facility] 00:00:00 [facility] HPV9 2016-04-01 Completed [facility] 00:00:00 [facility] HPV9 2016-04-01 Completed [facility] 00:00:00 [facility] HPV9 2016-04-01 Completed [facility] 00:00:00 [facility] HPV9 2016-04-01 Completed [facility] 00:00:00 [facility] HPV9 2016-04-01 Completed [facility] 00:00:00 [facility] HPV9 2016-04-01 Completed [facility] 00:00:00 [facility] HPV9 2016-04-01 Completed [facility] 00:00:00 [facility] HPV9 2016-04-01 Completed [facility] 00:00:00 [facility] HPV9 2016-04-01 Completed [facility] 00:00:00 [facility] HPV9 2016-04-01 Completed [facility] 00:00:00 [facility] HPV9 2016-04-01 Completed [facility] 00:00:00 [facility] HPV9 2016-04-01 Completed [facility] 00:00:00 [facility] HPV9 2016-04-01 Completed [facility] 00:00:00 [facility] HPV9 2016-04-01 Completed [facility] 00:00:00 [facility] HPV9 2016-04-01 Completed [facility] 00:00:00 [facility] HPV9 2016-04-01 Completed [facility] 00:00:00 [facility] HPV9 2016-04-01 Completed [facility] 00:00:00 [facility] HPV9 2016-04-01 Completed [facility] 00:00:00 [facility] HPV9 2016-04-01 Completed [facility] 00:00:00 [facility] HPV9 2016-04-01 Completed [facility] 00:00:00 [facility] HPV9 2016-04-01 Completed [facility] 00:00:00 [facility] HPV9 2016-04-01 Completed [facility] 00:00:00 [facility] HPV9 2016-04-01 Completed [facility] 00:00:00 [facility] HPV9 2016-04-01 Completed [facility] 00:00:00 [facility] HPV9 2016-04-01 Completed [facility] 00:00:00 [facility] HPV9 2016-04-01 Completed [facility] 00:00:00 [facility] HPV9 2016-04-01 Completed [facility] 00:00:00 [facility] HPV9 2016-04-01 Completed [facility] 00:00:00 [facility] HPV9 2016-04-01 Completed [facility] 00:00:00 [facility] HPV9 2016-04-01 Completed [facility] 00:00:00 [facility] HPV9 2016-04-01 Completed [facility] 00:00:00 [facility] HPV9 2016-04-01 Completed [facility] 00:00:00 [facility] HPV9 2016-04-01 Completed [facility] 00:00:00 [facility] HPV9 2016-04-01 Completed [facility] 00:00:00 [facility] HPV9 2016-04-01 Completed [facility] 00:00:00 [facility] HPV9 2016-04-01 Completed [facility] 00:00:00 [facility] HPV9 2016-04-01 Completed [facility] 00:00:00 [facility] HPV9 2016-04-01 Completed [facility] 00:00:00 [facility] HPV9 2016-04-01 Completed [facility] 00:00:00 [facility] HPV9 2016-04-01 Completed [facility] 00:00:00 [facility] HPV9 2016-04-01 Completed [facility] 00:00:00 [facility] HPV9 2016-04-01 Completed [facility] 00:00:00 [facility] HPV9 2016-04-01 Completed [facility] 00:00:00 [facility] HPV9 2016-04-01 Completed [facility] 00:00:00 [facility] HPV9 2016-04-01 Completed [facility] 00:00:00 [facility] HPV9 2016-04-01 Completed [facility] 00:00:00 [facility] HPV9 2016-04-01 Completed [facility] 00:00:00 [facility] HPV9 2016-04-01 Completed [facility] 00:00:00 [facility] HPV9 2016-04-01 Completed [facility] 00:00:00 [facility] HPV9 2016-04-01 Completed [facility] 00:00:00 [facility] HPV9 2016-04-01 Completed [facility] 00:00:00 [facility] HPV9 2016-04-01 Completed [facility] 00:00:00 [facility] HPV9 2016-04-01 Completed [facility] 00:00:00 [facility] HPV9 2016-04-01 Completed [facility] 00:00:00 [facility] HPV9 2016-04-01 Completed [facility] 00:00:00 [facility] HPV9 2016-04-01 Completed [facility] 00:00:00 [facility] HPV9 2016-04-01 Completed [facility] 00:00:00 [facility] HPV9 2016-04-01 Completed [facility] 00:00:00 [facility] HPV9 2016-04-01 Completed [facility] 00:00:00 [facility] HPV9 2016-04-01 Completed [facility] 00:00:00 [facility] HPV9 2016-04-01 Completed [facility] 00:00:00 [facility] HPV9 2016-04-01 Completed [facility] 00:00:00 [facility] HPV9 2016-04-01 Completed [facility] 00:00:00 [facility] HPV9 2016-04-01 Completed [facility] 00:00:00 [facility] HPV9 2016-04-01 Completed [facility] 00:00:00 [facility] HPV9 2016-04-01 Completed [facility] 00:00:00 [facility] HPV9 2016-04-01 Completed [facility] 00:00:00 [facility] HPV9 2016-04-01 Completed [facility] 00:00:00 [facility] HPV9 2016-04-01 Completed [facility] 00:00:00 [facility] HPV9 2016-04-01 Completed [facility] 00:00:00 [facility] HPV9 2016-04-01 Completed [facility] 00:00:00 [facility] HPV9 2016-04-01 Completed [facility] 00:00:00 [facility] HPV9 2016-04-01 Completed [facility] 00:00:00 [facility] HPV9 2016-04-01 Completed [facility] 00:00:00 [facility] HPV9 2016-04-01 Completed [facility] 00:00:00 [facility] HPV9 2016-04-01 Completed [facility] 00:00:00 [facility] HPV9 2016-04-01 Completed [facility] 00:00:00 [facility] HPV9 2016-04-01 Completed [facility] 00:00:00 [facility] HPV9 2016-04-01 Completed [facility] 00:00:00 [facility] HPV9 2016-04-01 Completed [facility] 00:00:00 [facility] HPV9 2016-04-01 Completed [facility] 00:00:00 [facility] HPV9 2016-04-01 Completed [facility] 00:00:00 [facility] HPV9 2016-04-01 Completed [facility] 00:00:00 [facility] HPV9 2016-04-01 Completed [facility] 00:00:00 [facility] HPV9 2016-04-01 Completed [facility] 00:00:00 [facility] HPV9 2016-04-01 Completed [facility] 00:00:00 [facility] HPV9 2016-04-01 Completed [facility] 00:00:00 [facility] HPV9 2016-04-01 Completed [facility] 00:00:00 [facility] HPV9 2016-04-01 Completed [facility] 00:00:00 [facility] HPV9 2016-04-01 Completed [facility] 00:00:00 [facility] HPV9 2016-04-01 Completed [facility] 00:00:00 [facility] HPV9 2016-04-01 Completed [facility] 00:00:00 [facility] HPV9 2016-04-01 Completed [facility] 00:00:00 [facility] HPV9 2016-04-01 Completed [facility] 00:00:00 [facility] HPV9 2016-04-01 Completed [facility] 00:00:00 [facility] HPV9 2016-04-01 Completed [facility] 00:00:00 [facility] HPV9 2016-04-01 Completed [facility] 00:00:00 [facility] HPV9 2016-04-01 Completed [facility] 00:00:00 [facility] HPV9 2016-04-01 Completed [facility] 00:00:00 [facility] HPV9 2016-04-01 Completed [facility] 00:00:00 [facility] HPV9 2016-04-01 Completed [facility] 00:00:00 [facility] HPV9 2016-04-01 Completed [facility] 00:00:00 [facility] HPV9 2016-04-01 Completed [facility] 00:00:00 [facility] HPV9 2016-04-01 Completed [facility] 00:00:00 [facility] HPV9 2016-04-01 Completed [facility] 00:00:00 [facility] HPV9 2016-04-01 Completed [facility] 00:00:00 [facility] HPV9 2016-04-01 Completed [facility] 00:00:00 [facility] HPV9 2016-04-01 Completed [facility] 00:00:00 [facility] HPV9 2016-04-01 Completed [facility] 00:00:00 [facility] HPV9 2016-04-01 Completed [facility] 00:00:00 [facility] HPV9 2016-04-01 Completed [facility] 00:00:00 [facility] HPV9 2016-04-01 Completed [facility] 00:00:00 [facility] HPV9 2016-04-01 Completed [facility] 00:00:00 [facility] HPV9 2016-04-01 Completed [facility] 00:00:00 [facility] HPV9 2016-04-01 Completed [facility] 00:00:00 [facility] HPV9 2016-04-01 Completed [facility] 00:00:00 [facility] HPV9 2016-04-01 Completed [facility] 00:00:00 [facility] HPV9 2016-04-01 Completed [facility] 00:00:00 [facility] HPV9 2016-04-01 Completed [facility] 00:00:00 [facility] HPV9 2016-04-01 Completed [facility] 00:00:00 [facility] HPV9 2016-04-01 Completed [facility] 00:00:00 [facility] HPV9 2015-11-18 Completed [facility] 00:00:00 [facility] HPV9 2015-11-18 Completed [facility] 00:00:00 [facility] HPV9 2015-11-18 Completed [facility] 00:00:00 [facility] HPV9 2015-11-18 Completed [facility] 00:00:00 [facility] HPV9 2015-11-18 Completed [facility] 00:00:00 [facility] HPV9 2015-11-18 Completed [facility] 00:00:00 [facility] HPV9 2015-11-18 Completed [facility] 00:00:00 [facility] HPV9 2015-11-18 Completed [facility] 00:00:00 [facility] HPV9 2015-11-18 Completed [facility] 00:00:00 [facility] HPV9 2015-11-18 Completed [facility] 00:00:00 [facility] HPV9 2015-11-18 Completed [facility] 00:00:00 [facility] HPV9 2015-11-18 Completed [facility] 00:00:00 [facility] HPV9 2015-11-18 Completed [facility] 00:00:00 [facility] HPV9 2015-11-18 Completed [facility] 00:00:00 [facility] HPV9 2015-11-18 Completed [facility] 00:00:00 [facility] HPV9 2015-11-18 Completed [facility] 00:00:00 [facility] HPV9 2015-11-18 Completed [facility] 00:00:00 [facility] HPV9 2015-11-18 Completed [facility] 00:00:00 [facility] HPV9 2015-11-18 Completed [facility] 00:00:00 [facility] HPV9 2015-11-18 Completed [facility] 00:00:00 [facility] HPV9 2015-11-18 Completed [facility] 00:00:00 [facility] HPV9 2015-11-18 Completed [facility] 00:00:00 [facility] HPV9 2015-11-18 Completed [facility] 00:00:00 [facility] HPV9 2015-11-18 Completed [facility] 00:00:00 [facility] HPV9 2015-11-18 Completed [facility] 00:00:00 [facility] HPV9 2015-11-18 Completed [facility] 00:00:00 [facility] HPV9 2015-11-18 Completed [facility] 00:00:00 [facility] HPV9 2015-11-18 Completed [facility] 00:00:00 [facility] HPV9 2015-11-18 Completed [facility] 00:00:00 [facility] HPV9 2015-11-18 Completed [facility] 00:00:00 [facility] HPV9 2015-11-18 Completed [facility] 00:00:00 [facility] HPV9 2015-11-18 Completed [facility] 00:00:00 [facility] HPV9 2015-11-18 Completed [facility] 00:00:00 [facility] HPV9 2015-11-18 Completed [facility] 00:00:00 [facility] HPV9 2015-11-18 Completed [facility] 00:00:00 [facility] HPV9 2015-11-18 Completed [facility] 00:00:00 [facility] HPV9 2015-11-18 Completed [facility] 00:00:00 [facility] HPV9 2015-11-18 Completed [facility] 00:00:00 [facility] HPV9 2015-11-18 Completed [facility] 00:00:00 [facility] HPV9 2015-11-18 Completed [facility] 00:00:00 [facility] HPV9 2015-11-18 Completed [facility] 00:00:00 [facility] HPV9 2015-11-18 Completed [facility] 00:00:00 [facility] HPV9 2015-11-18 Completed [facility] 00:00:00 [facility] HPV9 2015-11-18 Completed [facility] 00:00:00 [facility] HPV9 2015-11-18 Completed [facility] 00:00:00 [facility] HPV9 2015-11-18 Completed [facility] 00:00:00 [facility] HPV9 2015-11-18 Completed [facility] 00:00:00 [facility] HPV9 2015-11-18 Completed [facility] 00:00:00 [facility] HPV9 2015-11-18 Completed [facility] 00:00:00 [facility] HPV9 2015-11-18 Completed [facility] 00:00:00 [facility] HPV9 2015-11-18 Completed [facility] 00:00:00 [facility] HPV9 2015-11-18 Completed [facility] 00:00:00 [facility] HPV9 2015-11-18 Completed [facility] 00:00:00 [facility] HPV9 2015-11-18 Completed [facility] 00:00:00 [facility] HPV9 2015-11-18 Completed [facility] 00:00:00 [facility] HPV9 2015-11-18 Completed [facility] 00:00:00 [facility] HPV9 2015-11-18 Completed [facility] 00:00:00 [facility] HPV9 2015-11-18 Completed [facility] 00:00:00 [facility] HPV9 2015-11-18 Completed [facility] 00:00:00 [facility] HPV9 2015-11-18 Completed [facility] 00:00:00 [facility] HPV9 2015-11-18 Completed [facility] 00:00:00 [facility] HPV9 2015-11-18 Completed [facility] 00:00:00 [facility] HPV9 2015-11-18 Completed [facility] 00:00:00 [facility] HPV9 2015-11-18 Completed [facility] 00:00:00 [facility] HPV9 2015-11-18 Completed [facility] 00:00:00 [facility] HPV9 2015-11-18 Completed [facility] 00:00:00 [facility] HPV9 2015-11-18 Completed [facility] 00:00:00 [facility] HPV9 2015-11-18 Completed [facility] 00:00:00 [facility] HPV9 2015-11-18 Completed [facility] 00:00:00 [facility] HPV9 2015-11-18 Completed [facility] 00:00:00 [facility] HPV9 2015-11-18 Completed [facility] 00:00:00 [facility] HPV9 2015-11-18 Completed [facility] 00:00:00 [facility] HPV9 2015-11-18 Completed [facility] 00:00:00 [facility] HPV9 2015-11-18 Completed [facility] 00:00:00 [facility] HPV9 2015-11-18 Completed [facility] 00:00:00 [facility] HPV9 2015-11-18 Completed [facility] 00:00:00 [facility] HPV9 2015-11-18 Completed [facility] 00:00:00 [facility] HPV9 2015-11-18 Completed [facility] 00:00:00 [facility] HPV9 2015-11-18 Completed [facility] 00:00:00 [facility] HPV9 2015-11-18 Completed [facility] 00:00:00 [facility] HPV9 2015-11-18 Completed [facility] 00:00:00 [facility] HPV9 2015-11-18 Completed [facility] 00:00:00 [facility] HPV9 2015-11-18 Completed [facility] 00:00:00 [facility] HPV9 2015-11-18 Completed [facility] 00:00:00 [facility] HPV9 2015-11-18 Completed [facility] 00:00:00 [facility] HPV9 2015-11-18 Completed [facility] 00:00:00 [facility] HPV9 2015-11-18 Completed [facility] 00:00:00 [facility] HPV9 2015-11-18 Completed [facility] 00:00:00 [facility] HPV9 2015-11-18 Completed [facility] 00:00:00 [facility] HPV9 2015-11-18 Completed [facility] 00:00:00 [facility] HPV9 2015-11-18 Completed [facility] 00:00:00 [facility] HPV9 2015-11-18 Completed [facility] 00:00:00 [facility] HPV9 2015-11-18 Completed [facility] 00:00:00 [facility] HPV9 2015-11-18 Completed [facility] 00:00:00 [facility] HPV9 2015-11-18 Completed [facility] 00:00:00 [facility] HPV9 2015-11-18 Completed [facility] 00:00:00 [facility] HPV9 2015-11-18 Completed [facility] 00:00:00 [facility] HPV9 2015-11-18 Completed [facility] 00:00:00 [facility] HPV9 2015-11-18 Completed [facility] 00:00:00 [facility] HPV9 2015-11-18 Completed [facility] 00:00:00 [facility] HPV9 2015-11-18 Completed [facility] 00:00:00 [facility] HPV9 2015-11-18 Completed [facility] 00:00:00 [facility] HPV9 2015-11-18 Completed [facility] 00:00:00 [facility] HPV9 2015-11-18 Completed [facility] 00:00:00 [facility] HPV9 2015-11-18 Completed [facility] 00:00:00 [facility] HPV9 2015-11-18 Completed [facility] 00:00:00 [facility] HPV9 2015-11-18 Completed [facility] 00:00:00 [facility] HPV9 2015-11-18 Completed [facility] 00:00:00 [facility] HPV9 2015-11-18 Completed [facility] 00:00:00 [facility] HPV9 2015-11-18 Completed [facility] 00:00:00 [facility] HPV9 2015-11-18 Completed [facility] 00:00:00 [facility] HPV9 2015-11-18 Completed [facility] 00:00:00 [facility] HPV9 2015-11-18 Completed [facility] 00:00:00 [facility] HPV9 2015-11-18 Completed [facility] 00:00:00 [facility] HPV9 2015-11-18 Completed [facility] 00:00:00 [facility] HPV9 2015-11-18 Completed [facility] 00:00:00 [facility] HPV9 2015-11-18 Completed [facility] 00:00:00 [facility] HPV9 2015-11-18 Completed [facility] 00:00:00 [facility] HPV9 2015-11-18 Completed [facility] 00:00:00 [facility] HPV9 2015-11-18 Completed [facility] 00:00:00 [facility] HPV9 2015-11-18 Completed [facility] 00:00:00 [facility] HPV9 2015-11-18 Completed [facility] 00:00:00 [facility] HPV9 2015-11-18 Completed [facility] 00:00:00 [facility] HPV9 2015-11-18 Completed [facility] 00:00:00 [facility] HPV9 2015-11-18 Completed [facility] 00:00:00 [facility] HPV9 2015-11-18 Completed [facility] 00:00:00 [facility] HPV9 2015-11-18 Completed [facility] 00:00:00 [facility] HPV9 2015-11-18 Completed [facility] 00:00:00 [facility] HPV9 2015-11-18 Completed [facility] 00:00:00 [facility] HPV9 2015-11-18 Completed [facility] 00:00:00 [facility] HPV9 2015-11-18 Completed [facility] 00:00:00 [facility] HPV9 2015-11-18 Completed [facility] 00:00:00 [facility] HPV9 2015-11-18 Completed [facility] 00:00:00 [facility] HPV9 2015-11-18 Completed [facility] 00:00:00 [facility] HPV9 2015-11-18 Completed [facility] 00:00:00 [facility] HPV9 2015-11-18 Completed [facility] 00:00:00 [facility] HPV9 2015-11-18 Completed [facility] 00:00:00 [facility] HPV9 2015-11-18 Completed [facility] 00:00:00 [facility] HPV9 2015-11-18 Completed [facility] 00:00:00 [facility] HPV9 2015-11-18 Completed [facility] 00:00:00 [facility] HPV9 2015-11-18 Completed [facility] 00:00:00 [facility] HPV9 2015-11-18 Completed [facility] 00:00:00 [facility] HPV9 2015-11-18 Completed [facility] 00:00:00 [facility] HPV9 2015-11-18 Completed [facility] 00:00:00 [facility] HPV9 2015-11-18 Completed [facility] 00:00:00 [facility] HPV9 2015-11-18 Completed [facility] 00:00:00 [facility] HPV9 2015-11-18 Completed [facility] 00:00:00 [facility] HPV9 2015-11-18 Completed [facility] 00:00:00 [facility] HPV9 2015-11-18 Completed [facility] 00:00:00 [facility] HPV9 2015-11-18 Completed [facility] 00:00:00 [facility] HPV9 2015-11-18 Completed [facility] 00:00:00 [facility] HPV9 2015-11-18 Completed [facility] 00:00:00 [facility] HPV9 2015-11-18 Completed [facility] 00:00:00 [facility] HPV9 2015-11-18 Completed [facility] 00:00:00 [facility] HPV9 2015-11-18 Completed [facility] 00:00:00 [facility] HPV9 2015-11-18 Completed [facility] 00:00:00 [facility] HPV9 2015-11-18 Completed [facility] 00:00:00 [facility] HPV9 2015-11-18 Completed [facility] 00:00:00 [facility] HPV9 2015-11-18 Completed [facility] 00:00:00 [facility] HPV9 2015-11-18 Completed [facility] 00:00:00 [facility] HPV9 2015-11-18 Completed [facility] 00:00:00 [facility] HPV9 2015-11-18 Completed [facility] 00:00:00 [facility] HPV9 2015-11-18 Completed [facility] 00:00:00 [facility] HPV9 2015-11-18 Completed [facility] 00:00:00 [facility] HPV9 2015-11-18 Completed [facility] 00:00:00 [facility] HPV9 2015-11-18 Completed [facility] 00:00:00 [facility] HPV9 2015-11-18 Completed [facility] 00:00:00 [facility] HPV9 2015-11-18 Completed [facility] 00:00:00 [facility] HPV9 2015-11-18 Completed [facility] 00:00:00 [facility] HPV9 2015-11-18 Completed [facility] 00:00:00 [facility] HPV9 2015-11-18 Completed [facility] 00:00:00 [facility] HPV9 2015-11-18 Completed [facility] 00:00:00 [facility] HPV9 2015-11-18 Completed [facility] 00:00:00 [facility] HPV9 2015-11-18 Completed [facility] 00:00:00 [facility] HPV9 2015-11-18 Completed [facility] 00:00:00 [facility] HPV9 2015-11-18 Completed [facility] 00:00:00 [facility] HPV9 2015-11-18 Completed [facility] 00:00:00 [facility] HPV9 2015-11-18 Completed [facility] 00:00:00 [facility] HPV9 2015-11-18 Completed [facility] 00:00:00 [facility] HPV9 2015-11-18 Completed [facility] [...] HPV 2015-05-23 Completed [facility] 00:00:00 [facility] HPV 2015-05-23 Completed [facility] 00:00:00 [facility] HPV 2015-05-23 Completed [facility] 00:00:00 [facility] HPV 2015-05-23 Completed [facility] 00:00:00 [facility] HPV 2015-05-23 Completed [facility] 00:00:00 [facility] HPV 2015-05-23 Completed [facility] 00:00:00 [facility] HPV 2015-05-23 Completed [facility] 00:00:00 [facility] HPV 2015-05-23 Completed [facility] 00:00:00 [facility] HPV 2015-05-23 Completed [facility] 00:00:00 [facility] HPV 2015-05-23 Completed [facility] 00:00:00 [facility] HPV 2015-05-23 Completed [facility] 00:00:00 [facility] HPV 2015-05-23 Completed [facility] 00:00:00 [facility] HPV 2015-05-23 Completed [facility] 00:00:00 [facility] HPV 2015-05-23 Completed [facility] 00:00:00 [facility] HPV 2015-05-23 Completed [facility] 00[facility]00:00 [facility] HPV 2015-05-23 Completed [facility] 00:00:00 [facility] HPV 2015-05-23 Completed [facility] 00:00:00 [facility] Influenza Virus 2009-06-17 Completed [facility] Vaccine 00:00:00 [facility] Influenza Virus 2009-06-17 Completed [facility] Vaccine 00:00:00 [facility] Influenza Virus 2009-06-17 Completed [facility] Vaccine 00:00:00 [facility] Influenza Virus 2009-06-17 Completed [facility] Vaccine 00:00:00 [facility] Influenza Virus 2009-06-17 Completed [facility] Vaccine 00:00:00 [facility] Influenza Virus 2009-06-17 Completed [facility] Vaccine 00:00:00 [facility] Influenza Virus 2009-06-17 Completed [facility] Vaccine 00:00:00 [facility] Influenza Virus 2009-06-17 Completed [facility] Vaccine 00:00:00 [facility] Influenza Virus 2009-06-17 Completed [facility] Vaccine 00:00:00 [facility] Influenza Virus 2009-06-17 Completed [facility] Vaccine 00:00:00 [facility] Influenza Virus 2009-06-17 Completed [facility] Vaccine 00:00:00 [facility] Influenza Virus 2009-06-17 Completed [facility] Vaccine 00:00:00 [facility] Influenza Virus 2009-06-17 Completed [facility] Vaccine 00[facility]00:00 [facility] Influenza Virus 2009-06-17 Completed [facility] Vaccine 00:00:00 [facility] Influenza Virus 2009-06-17 Completed [facility] Vaccine 00:00:00 [facility] Influenza Virus 2009-06-17 Completed [facility] Vaccine 00:00:00 [facility] Influenza Virus 2009-06-17 Completed [facility] Vaccine 00:00:00 [facility] Influenza Virus 2009-06-17 Completed [facility] Vaccine 00:00:00 [facility] Influenza Virus 2009-06-17 Completed [facility] Vaccine 00:00:00 [facility] Influenza Virus 2009-06-17 Completed [facility] Vaccine 00:00:00 [facility] Influenza Virus 2009-06-17 Completed [facility] Vaccine 00:00:00 [facility] Influenza Virus 2009-06-17 Completed [facility] Vaccine 00:00:00 [facility] Influenza Virus 2009-06-17 Completed [facility] Vaccine 00:00:00 [facility] Influenza Virus 2009-06-17 Completed [facility] Vaccine 00:00:00 [facility] Influenza Virus 2009-06-17 Completed [facility] Vaccine 00:00:00 [facility] Influenza Virus 2009-06-17 Completed [facility] Vaccine 00:00:00 [facility] Influenza Virus 2009-06-17 Completed [facility] Vaccine 00:00:00 [facility] Influenza Virus 2009-06-17 Completed [facility] Vaccine 00:00:00 [facility] Influenza Virus 2009-06-17 Completed [facility] Vaccine 00:00:00 [facility] Influenza Virus 2009-06-17 Completed [facility] Vaccine 00:00:00 [facility] Influenza Virus 2009-06-17 Completed [facility] Vaccine 00:00:00 [facility] Influenza Virus 2009-06-17 Completed [facility] Vaccine 00:00:00 [facility] Influenza Virus 2009-06-17 Completed [facility] Vaccine 00:00:00 [facility] Influenza Virus 2009-06-17 Completed [facility] Vaccine 00:00:00 [facility] Influenza Virus 2009-06-17 Completed [facility] Vaccine 00:00:00 [facility] Influenza Virus 2009-06-17 Completed [facility] Vaccine 00:00:00 [facility] Influenza Virus 2009-06-17 Completed [facility] Vaccine 00:00:00 [facility] Influenza Virus 2009-06-17 Completed [facility] Vaccine 00:00:00 [facility] Influenza Virus 2009-06-17 Completed [facility] Vaccine 00:00:00 [facility] Influenza Virus 2009-06-17 Completed [facility] Vaccine 00:00:00 [facility] Influenza Virus 2009-06-17 Completed [facility] Vaccine 00:00:00 [facility] Influenza Virus 2009-06-17 Completed [facility] Vaccine 00:00:00 [facility] Influenza Virus 2009-06-17 Completed [facility] Vaccine 00:00:00 [facility] Influenza Virus 2009-06-17 Completed [facility] Vaccine 00:00:00 [facility] Influenza Virus 2009-06-17 Completed [facility] Vaccine 00:00:00 [facility] Influenza Virus 2009-06-17 Completed [facility] Vaccine 00:00:00 [facility] Influenza Virus 2009-06-17 Completed [facility] Vaccine 00:00:00 [facility] Influenza Virus 2009-06-17 Completed [facility] Vaccine 00:00:00 [facility] Influenza Virus 2009-06-17 Completed [facility] Vaccine 00:00:00 [facility] Influenza Virus 2009-06-17 Completed [facility] Vaccine 00:00:00 [facility] Influenza Virus 2009-06-17 Completed [facility] Vaccine 00:00:00 [facility] Influenza Virus 2009-06-17 Completed [facility] Vaccine 00:00:00 [facility] Influenza Virus 2009-06-17 Completed [facility] Vaccine 00:00:00 [facility] Influenza Virus 2009-06-17 Completed [facility] Vaccine 00:00:00 [facility] Influenza Virus 2009-06-17 Completed [facility] Vaccine 00:00:00 [facility] Influenza Virus 2009-06-17 Completed [facility] Vaccine 00:00:00 [facility] Influenza Virus 2009-06-17 Completed [facility] Vaccine 00:00:00 [facility] Influenza Virus 2009-06-17 Completed [facility] Vaccine 00:00:00 [facility] Influenza Virus 2009-06-17 Completed [facility] Vaccine 00:00:00 [facility] Influenza Virus 2009-06-17 Completed [facility] Vaccine 00:00:00 [facility] Influenza Virus 2009-06-17 Completed [facility] Vaccine 00:00:00 [facility] Influenza Virus 2009-06-17 Completed [facility] Vaccine 00:00:00 [facility] Influenza Virus 2009-06-17 Completed [facility] Vaccine 00:00:00 [facility] Influenza Virus 2009-06-17 Completed [facility] Vaccine 00:00:00 [facility] Influenza Virus 2009-06-17 Completed [facility] Vaccine 00:00:00 [facility] Influenza Virus 2009-06-17 Completed [facility] Vaccine 00:00:00 [facility] Influenza Virus 2009-06-17 Completed [facility] Vaccine 00:00:00 [facility] Influenza Virus 2009-06-17 Completed [facility] Vaccine 00:00:00 [facility] Influenza Virus 2009-06-17 Completed [facility] Vaccine 00:00:00 [facility] Influenza Virus 2009-06-17 Completed [facility] Vaccine 00:00:00 [facility] Influenza Virus 2009-06-17 Completed [facility] Vaccine 00:00:00 [facility] Influenza Virus 2009-06-17 Completed [facility] Vaccine 00:00:00 [facility] Influenza Virus 2009-06-17 Completed [facility] Vaccine 00:00:00 [facility] Influenza Virus 2009-06-17 Completed [facility] Vaccine 00:00:00 [facility] Influenza Virus 2009-06-17 Completed [facility] Vaccine 00:00:00 [facility] Influenza Virus 2009-06-17 Completed [facility] Vaccine 00:00:00 [facility] Influenza Virus 2009-06-17 Completed [facility] Vaccine 00:00:00 [facility] Influenza Virus 2009-06-17 Completed [facility] Vaccine 00:00:00 [facility] Influenza Virus 2009-06-17 Completed [facility] Vaccine 00:00:00 [facility] Influenza Virus 2009-06-17 Completed [facility] Vaccine 00:00:00 [facility] Influenza Virus 2009-06-17 Completed [facility] Vaccine 00:00:00 [facility] Influenza Virus 2009-06-17 Completed [facility] Vaccine 00:00:00 [facility] Influenza Virus 2009-06-17 Completed [facility] Vaccine 00:00:00 [facility] Influenza Virus 2009-06-17 Completed [facility] Vaccine 00:00:00 [facility] Influenza Virus 2009-06-17 Completed [facility] Vaccine 00:00:00 [facility] Influenza Virus 2009-06-17 Completed [facility] Vaccine 00:00:00 [facility] Influenza Virus 2009-06-17 Completed [facility] Vaccine 00:00:00 [facility] Influenza Virus 2009-06-17 Completed [facility] Vaccine 00:00:00 [facility] Influenza Virus 2009-06-17 Completed [facility] Vaccine 00:00:00 [facility] Influenza Virus 2009-06-17 Completed [facility] Vaccine 00:00:00 [facility] Influenza Virus 2009-06-17 Completed [facility] Vaccine 00:00:00 [facility] Influenza Virus 2009-06-17 Completed [facility] Vaccine 00:00:00 [facility] Influenza Virus 2009-06-17 Completed [facility] Vaccine 00:00:00 [facility] Influenza Virus 2009-06-17 Completed [facility] Vaccine 00:00:00 [facility] Influenza Virus 2009-06-17 Completed [facility] Vaccine 00:00:00 [facility] Influenza Virus 2009-06-17 Completed [facility] Vaccine 00:00:00 [facility] Influenza Virus 2009-06-17 Completed [facility] Vaccine 00:00:00 [facility] Influenza Virus 2009-06-17 Completed [facility] Vaccine 00:00:00 [facility] Influenza Virus 2009-06-17 Completed [facility] Vaccine 00:00:00 [facility] Influenza Virus 2009-06-17 Completed [facility] Vaccine 00:00:00 [facility] Influenza Virus 2009-06-17 Completed [facility] Vaccine 00:00:00 [facility] Influenza Virus 2009-06-17 Completed [facility] Vaccine 00:00:00 [facility] Influenza Virus 2009-06-17 Completed [facility] Vaccine 00:00:00 [facility] Influenza Virus 2009-06-17 Completed [facility] Vaccine 00:00:00 [facility] Influenza Virus 2009-06-17 Completed [facility] Vaccine 00:00:00 [facility] Influenza Virus 2009-06-17 Completed [facility] Vaccine 00:00:00 [facility] Influenza Virus 2009-06-17 Completed [facility] Vaccine 00:00:00 [facility] Influenza Virus 2009-06-17 Completed [facility] Vaccine 00:00:00 [facility] Influenza Virus 2009-06-17 Completed [facility]00 [facility] Influenza Virus 2009-06-17 Completed [facility] Vaccine 00[facility]00:00 [facility] Influenza Virus 2009-06-17 Completed [facility] Vaccine 00:00:00 [facility] Influenza Virus 2009-06-17 Completed [facility] Vaccine 00:00:00 [facility] Influenza Virus 2009-06-17 Completed [facility] Vaccine 00:00:00 [facility] Influenza Virus 2009-06-17 Completed [facility] Vaccine 00:00:00 [facility] Influenza Virus 2009-06-17 Completed [facility] Vaccine 00:00:00 [facility] Influenza Virus 2009-06-17 Completed [facility] Vaccine 00:00:00 [facility] Influenza Virus 2009-06-17 Completed [facility] Vaccine 00:00:00 [facility] Influenza Virus 2009-06-17 Completed [facility] Vaccine 00:00:00 [facility] Influenza Virus 2009-06-17 Completed [facility] Vaccine 00:00:00 [facility] Influenza Virus 2009-06-17 Completed [facility] Vaccine 00:00:00 [facility] Influenza Virus 2009-06-17 Completed [facility] Vaccine 00:00:00 [facility] Influenza Virus 2009-06-17 Completed [facility] Vaccine 00:00:00 [facility] Influenza Virus 2009-06-17 Completed [facility] Vaccine 00:00:00 [facility] Influenza Virus 2009-06-17 Completed [facility] Vaccine 00:00:00 [facility] Influenza Virus 2009-06-17 Completed [facility] Vaccine 00:00:00 [facility] Influenza Virus 2009-06-17 Completed [facility] Vaccine 00:00:00 [facility] Influenza Virus 2009-06-17 Completed [facility] Vaccine 00:00:00 [facility] Influenza Virus 2009-06-17 Completed [facility] Vaccine 00:00:00 [facility] Influenza Virus 2009-06-17 Completed [facility] Vaccine 00:00:00 [facility] Influenza Virus 2009-06-17 Completed [facility] Vaccine 00:00:00 [facility] Influenza Virus 2009-06-17 Completed [facility] Vaccine 00:00:00 [facility] Influenza Virus 2009-06-17 Completed [facility] Vaccine 00:00:00 [facility] Influenza Virus 2009-06-17 Completed [facility] Vaccine 00:00:00 [facility] Influenza Virus 2009-06-17 Completed [facility] Vaccine 00:00:00 [facility] Influenza Virus 2009-06-17 Completed [facility] Vaccine 00:00:00 [facility] Influenza Virus 2009-06-17 Completed [facility] Vaccine 00:00:00 [facility] Influenza Virus 2009-06-17 Completed [facility] Vaccine 00[facility]00:00 [facility] Influenza Virus 2009-06-17 Completed [facility] Vaccine 00:00:00 [facility] Influenza Virus 2009-06-17 Completed [facility] Vaccine 00:00:00 [facility] Influenza Virus 2009-06-17 Completed [facility] Vaccine 00:00:00 [facility] Influenza Virus 2009-06-17 Completed [facility] Vaccine 00:00:00 [facility] Influenza Virus 2009-06-17 Completed [facility] Vaccine 00:00:00 [facility] Influenza Virus 2009-06-17 Completed [facility] Vaccine 00:00:00 [facility] Influenza Virus 2009-06-17 Completed [facility] Vaccine 00:00:00 [facility] Influenza Virus 2009-06-17 Completed [facility] Vaccine 00:00:00 [facility] Influenza Virus 2009-06-17 Completed [facility] Vaccine 00:00:00 [facility] Influenza Virus 2009-06-17 Completed [facility] Vaccine 00:00:00 [facility] Influenza Virus 2009-06-17 Completed [facility] Vaccine 00:00:00 [facility] Influenza Virus 2009-06-17 Completed [facility] Vaccine 00:00:00 [facility] Influenza Virus 2009-06-17 Completed [facility] Vaccine 00:00:00 [facility] Influenza Virus 2009-06-17 Completed [facility] Vaccine 00:00:00 [facility] Influenza Virus 2009-06-17 Completed [facility] Vaccine 00:00:00 [facility] Influenza Virus 2009-06-17 Completed [facility] Vaccine 00:00:00 [facility] Influenza Virus 2009-06-17 Completed [facility] Vaccine 00:00:00 [facility] Influenza Virus 2009-06-17 Completed [facility] Vaccine 00:00:00 [facility] Influenza Virus 2009-06-17 Completed [facility] Vaccine 00:00:00 [facility] Influenza Virus 2009-06-17 Completed [facility] Vaccine 00:00:00 [facility] Influenza Virus 2009-06-17 Completed [facility] Vaccine 00:00:00 [facility] Influenza Virus 2009-06-17 Completed [facility] Vaccine 00:00:00 [facility] Influenza Virus 2009-06-17 Completed [facility] Vaccine 00:00:00 [facility] Influenza Virus 2009-06-17 Completed [facility] Vaccine 00:00:00 [facility] Influenza Virus 2009-06-17 Completed [facility] Vaccine 00:00:00 [facility] Influenza Virus 2009-06-17 Completed [facility] Vaccine 00:00:00 [facility] Influenza Virus 2009-06-17 Completed [facility] Vaccine 00:00:00 [facility] Influenza Virus 2009-06-17 Completed [facility] Vaccine 00:00:00 [facility] Influenza Virus 2009-06-17 Completed [facility] Vaccine 00:00:00 [facility] Influenza Virus 2009-06-17 Completed [facility] Vaccine 00:00:00 [facility] Influenza Virus 2009-06-17 Completed [facility] Vaccine 00:00:00 [facility] Influenza Virus 2009-06-17 Completed [facility] Vaccine 00:00:00 [facility] Influenza Virus 2009-06-17 Completed [facility] Vaccine 00:00:00 [facility] Influenza Virus 2009-06-17 Completed [facility] Vaccine 00:00:00 [facility] Influenza Virus 2009-06-17 Completed [facility] Vaccine 00:00:00 [facility] Influenza Virus 2009-06-17 Completed [facility] Vaccine 00:00:00 [facility] Influenza Virus 2009-06-17 Completed [facility] Vaccine 00:00:00 [facility] Influenza Virus 2009-06-17 Completed [facility] Vaccine 00:00:00 [facility] Influenza Virus 2009-06-17 Completed [facility] Vaccine 00:00:00 [facility] Influenza Virus 2009-06-17 Completed [facility] Vaccine 00:00:00 [facility] Influenza Virus 2009-06-17 Completed [facility] Vaccine 00:00:00 [facility] Influenza Virus 2009-06-17 Completed [facility] Vaccine 00:00:00 [facility] Influenza Virus 2009-06-17 Completed [facility] Vaccine 00:00:00 [facility] Influenza Virus 2009-06-17 Completed [facility] Vaccine 00:00:00 [facility] Influenza Virus 2009-06-17 Completed [facility] Vaccine 00:00:00 [facility] Influenza Virus 2009-06-17 Completed [facility] Vaccine 00:00:00 [facility] Influenza Virus 2009-06-17 Completed [facility] Vaccine 00:00:00 [facility] Influenza Virus 2009-06-17 Completed [facility] Vaccine 00:00:00 [facility] Influenza Virus 2009-06-17 Completed [facility] Vaccine 00:00:00 [facility] Influenza Virus 2007-05-05 Completed [facility] Vaccine 00:00:00 [facility] Influenza Virus 2007-05-05 Completed [facility] Vaccine 00:00:00 [facility] Influenza Virus 2007-05-05 Completed [facility] Vaccine 00:00:00 [facility] Influenza Virus 2007-05-05 Completed [facility] Vaccine 00:00:00 [facility] Influenza Virus 2007-05-05 Completed [facility] Vaccine 00:00:00 [facility] Influenza Virus 2007-05-05 Completed [facility] Vaccine 00:00:00 [facility] Influenza Virus 2007-05-05 Completed [facility] Vaccine 00:00:00 [facility] Influenza Virus 2007-05-05 Completed [facility] Vaccine 00:00:00 [facility] Influenza Virus 2007-05-05 Completed [facility] Vaccine 00:00:00 [facility] Influenza Virus 2007-05-05 Completed [facility] Vaccine 00:00:00 [facility] Influenza Virus 2007-05-05 Completed [facility] Vaccine 00:00:00 [facility] Influenza Virus 2007-05-05 Completed [facility] Vaccine 00:00:00 [facility] Influenza Virus 2007-05-05 Completed [facility] Vaccine 00:00:00 [facility] Influenza Virus 2007-05-05 Completed [facility] Vaccine 00:00:00 [facility] Influenza Virus 2007-05-05 Completed [facility] Vaccine 00:00:00 [facility] Influenza Virus 2007-05-05 Completed [facility] Vaccine 00:00:00 [facility] Influenza Virus 2007-05-05 Completed [facility] Vaccine 00:00:00 [facility] Influenza Virus 2007-05-05 Completed [facility] Vaccine 00:00:00 [facility] Influenza Virus 2007-05-05 Completed [facility] Vaccine 00:00:00 [facility] Influenza Virus 2007-05-05 Completed [facility] Vaccine 00:00:00 [facility] Influenza Virus 2007-05-05 Completed [facility] Vaccine 00:00:00 [facility] Influenza Virus 2007-05-05 Completed [facility] Vaccine 00:00:00 [facility] Influenza Virus 2007-05-05 Completed [facility] Vaccine 00:00:00 [facility] Influenza Virus 2007-05-05 Completed [facility] Vaccine 00:00:00 [facility] Influenza Virus 2007-05-05 Completed [facility] Vaccine 00:00:00 [facility] Influenza Virus 2007-05-05 Completed [facility] Vaccine 00:00:00 [facility] Influenza Virus 2007-05-05 Completed [facility] Vaccine 00:00:00 [facility] Influenza Virus 2007-05-05 Completed [facility] Vaccine 00:00:00 [facility] Influenza Virus 2007-05-05 Completed [facility] Vaccine 00:00:00 [facility] Influenza Virus 2007-05-05 Completed [facility] Vaccine 00:00:00 [facility] Influenza Virus 2007-05-05 Completed [facility] Vaccine 00:00:00 [facility] Influenza Virus 2007-05-05 Completed [facility] Vaccine 00:00:00 [facility] Influenza Virus 2007-05-05 Completed [facility] Vaccine 00:00:00 [facility] Influenza Virus 2007-05-05 Completed [facility] Vaccine 00:00:00 [facility] Influenza Virus 2007-05-05 Completed [facility] Vaccine 00:00:00 [facility] Influenza Virus 2007-05-05 Completed [facility] Vaccine 00:00:00 [facility] Influenza Virus 2007-05-05 Completed [facility] Vaccine 00:00:00 [facility] Influenza Virus 2007-05-05 Completed [facility] Vaccine 00:00:00 [facility] Influenza Virus 2007-05-05 Completed [facility] Vaccine 00:00:00 [facility] Influenza Virus 2007-05-05 Completed [facility] Vaccine 00:00:00 [facility] Influenza Virus 2007-05-05 Completed [facility] Vaccine 00:00:00 [facility] Influenza Virus 2007-05-05 Completed [facility] Vaccine 00:00:00 [facility] Influenza Virus 2007-05-05 Completed [facility] Vaccine 00:00:00 [facility] Influenza Virus 2007-05-05 Completed [facility] Vaccine 00:00:00 [facility] Influenza Virus 2007-05-05 Completed [facility] Vaccine 00:00:00 [facility] Influenza Virus 2007-05-05 Completed [facility] Vaccine 00:00:00 [facility] Influenza Virus 2007-05-05 Completed [facility] Vaccine 00:00:00 [facility] Influenza Virus 2007-05-05 Completed [facility] Vaccine 00:00:00 [facility] Influenza Virus 2007-05-05 Completed [facility] Vaccine 00:00:00 [facility] Influenza Virus 2007-05-05 Completed [facility] Vaccine 00:00:00 [facility] Influenza Virus 2007-05-05 Completed [facility] Vaccine 00:00:00 [facility] Influenza Virus 2007-05-05 Completed [facility] Vaccine 00:00:00 [facility] Influenza Virus 2007-05-05 Completed [facility] Vaccine 00:00:00 [facility] Influenza Virus 2007-05-05 Completed [facility] Vaccine 00:00:00 [facility] Influenza Virus 2007-05-05 Completed [facility] Vaccine 00:00:00 [facility] Influenza Virus 2007-05-05 Completed [facility] Vaccine 00:00:00 [facility] Influenza Virus 2007-05-05 Completed [facility] Vaccine 00:00:00 [facility] Influenza Virus 2007-05-05 Completed [facility] Vaccine 00:00:00 [facility] Influenza Virus 2007-05-05 Completed [facility] Vaccine 00:00:00 [facility] Influenza Virus 2007-05-05 Completed [facility] Vaccine 00:00:00 [facility] Influenza Virus 2007-05-05 Completed [facility] Vaccine 00:00:00 [facility] Influenza Virus 2007-05-05 Completed [facility] Vaccine 00:00:00 [facility] Influenza Virus 2007-05-05 Completed [facility] Vaccine 00:00:00 [facility] Influenza Virus 2007-05-05 Completed [facility] Vaccine 00:00:00 [facility] Influenza Virus 2007-05-05 Completed [facility] Vaccine 00:00:00 [facility] Influenza Virus 2007-05-05 Completed [facility] Vaccine 00:00:00 [facility] Influenza Virus 2007-05-05 Completed [facility] Vaccine 00:00:00 [facility] Influenza Virus 2007-05-05 Completed [facility] Vaccine 00:00:00 [facility] Influenza Virus 2007-05-05 Completed [facility] Vaccine 00:00:00 [facility] Influenza Virus 2007-05-05 Completed [facility] Vaccine 00:00:00 [facility] Influenza Virus 2007-05-05 Completed [facility] Vaccine 00:00:00 [facility] Influenza Virus 2007-05-05 Completed [facility] Vaccine 00:00:00 [facility] Influenza Virus 2007-05-05 Completed [facility] Vaccine 00:00:00 [facility] Influenza Virus 2007-05-05 Completed [facility] Vaccine 00:00:00 [facility] Influenza Virus 2007-05-05 Completed [facility] Vaccine 00:00:00 [facility] Influenza Virus 2007-05-05 Completed [facility] Vaccine 00:00:00 [facility] Influenza Virus 2007-05-05 Completed [facility] Vaccine 00:00:00 [facility] Influenza Virus 2007-05-05 Completed [facility] Vaccine 00:00:00 [facility] Influenza Virus 2007-05-05 Completed [facility] Vaccine 00:00:00 [facility] Influenza Virus 2007-05-05 Completed [facility] Vaccine 00:00:00 [facility] Influenza Virus 2007-05-05 Completed [facility] Vaccine 00:00:00 [facility] Influenza Virus 2007-05-05 Completed [facility] Vaccine 00:00:00 [facility] Influenza Virus 2007-05-05 Completed [facility] Vaccine 00:00:00 [facility] Influenza Virus 2007-05-05 Completed [facility] Vaccine 00:00:00 [facility] Influenza Virus 2007-05-05 Completed [facility] Vaccine 00:00:00 [facility] Influenza Virus 2007-05-05 Completed [facility] Vaccine 00:00:00 [facility] Influenza Virus 2007-05-05 Completed [facility] Vaccine 00:00:00 [facility] Influenza Virus 2007-05-05 Completed [facility] Vaccine 00:00:00 [facility] Influenza Virus 2007-05-05 Completed [facility] Vaccine 00:00:00 [facility] Influenza Virus 2007-05-05 Completed [facility] Vaccine 00:00:00 [facility] Influenza Virus 2007-05-05 Completed [facility] Vaccine 00:00:00 [facility] Influenza Virus 2007-05-05 Completed [facility] Vaccine 00:00:00 [facility] Influenza Virus 2007-05-05 Completed [facility] Vaccine 00:00:00 [facility] Influenza Virus 2007-05-05 Completed [facility] Vaccine 00:00:00 [facility] Influenza Virus 2007-05-05 Completed [facility] Vaccine 00:00:00 [facility] Influenza Virus 2007-05-05 Completed [facility] Vaccine 00:00:00 [facility] Influenza Virus 2007-05-05 Completed [facility] Vaccine 00:00:00 [facility] Influenza Virus 2007-05-05 Completed [facility] Vaccine 00:00:00 [facility] Influenza Virus 2007-05-05 Completed [facility] Vaccine 00:00:00 [facility] Influenza Virus 2007-05-05 Completed [facility] Vaccine 00:00:00 [facility] Influenza Virus 2007-05-05 Completed [facility] Vaccine 00:00:00 [facility] Influenza Virus 2007-05-05 Completed [facility] Vaccine 00:00:00 [facility] Influenza Virus 2007-05-05 Completed [facility] Vaccine 00:00:00 [facility] Influenza Virus 2007-05-05 Completed [facility] Vaccine 00:00:00 [facility] Influenza Virus 2007-05-05 Completed [facility] Vaccine 00:00:00 [facility] Influenza Virus 2007-05-05 Completed [facility] Vaccine 00:00:00 [facility] Influenza Virus 2007-05-05 Completed [facility] Vaccine 00:00:00 [facility] Influenza Virus 2007-05-05 Completed [facility] Vaccine 00:00:00 [facility] Influenza Virus 2007-05-05 Completed [facility] Vaccine 00:00:00 [facility] Influenza Virus 2007-05-05 Completed [facility] Vaccine 00:00:00 [facility] Influenza Virus 2007-05-05 Completed [facility] Vaccine 00:00:00 [facility] Influenza Virus 2007-05-05 Completed [facility] Vaccine 00:00:00 [facility] Influenza Virus 2007-05-05 Completed [facility] Vaccine 00:00:00 [facility] Influenza Virus 2007-05-05 Completed [facility] Vaccine 00:00:00 [facility] Influenza Virus 2007-05-05 Completed [facility] Vaccine 00:00:00 [facility] Influenza Virus 2007-05-05 Completed [facility] Vaccine 00:00:00 [facility] Influenza Virus 2007-05-05 Completed [facility] Vaccine 00:00:00 [facility] Influenza Virus 2007-05-05 Completed [facility] Vaccine 00:00:00 [facility] Influenza Virus 2007-05-05 Completed [facility] Vaccine 00:00:00 [facility] Influenza Virus 2007-05-05 Completed [facility] Vaccine 00:00:00 [facility] Influenza Virus 2007-05-05 Completed [facility] Vaccine 00:00:00 [facility] Influenza Virus 2007-05-05 Completed [facility] Vaccine 00:00:00 [facility] Influenza Virus 2007-05-05 Completed [facility] Vaccine 00:00:00 [facility] Influenza Virus 2007-05-05 Completed [facility] Vaccine 00:00:00 [facility] Influenza Virus 2007-05-05 Completed [facility] Vaccine 00:00:00 [facility] Influenza Virus 2007-05-05 Completed [facility] Vaccine 00:00:00 [facility] Influenza Virus 2007-05-05 Completed [facility] Vaccine 00:00:00 [facility] Influenza Virus 2007-05-05 Completed [facility] Vaccine 00:00:00 [facility] Influenza Virus 2007-05-05 Completed [facility] Vaccine 00:00:00 [facility] Influenza Virus 2007-05-05 Completed [facility] Vaccine 00:00:00 [facility] Influenza Virus 2007-05-05 Completed [facility] Vaccine 00:00:00 [facility] Influenza Virus 2007-05-05 Completed [facility] Vaccine 00:00:00 [facility] Influenza Virus 2007-05-05 Completed [facility]ine 00:00:00 [facility] Influenza Virus 2007-05-05 Completed [facility] Vaccine 00:00:00 [facility] Influenza Virus 2007-05-05 Completed [facility] Vaccine 00:00:00 [facility] Influenza Virus 2007-05-05 Completed [facility] Vaccine 00:00:00 [facility] Influenza Virus 2007-05-05 Completed [facility] Vaccine 00:00:00 [facility] Influenza Virus 2007-05-05 Completed [facility] Vaccine 00:00:00 [facility] Influenza Virus 2007-05-05 Completed [facility] Vaccine 00:00:00 [facility] Influenza Virus 2007-05-05 Completed [facility] Vaccine 00:00:00 [facility] Influenza Virus 2007-05-05 Completed [facility] Vaccine 00:00:00 [facility] Influenza Virus 2007-05-05 Completed [facility] Vaccine 00:00:00 [facility] Influenza Virus 2007-05-05 Completed [facility] Vaccine 00:00:00 [facility] Influenza Virus 2007-05-05 Completed [facility] Vaccine 00:00:00 [facility] Influenza Virus 2007-05-05 Completed [facility] Vaccine 00:00:00 [facility] Influenza Virus 2007-05-05 Completed [facility] Vaccine 00:00:00 [facility] Influenza Virus 2007-05-05 Completed [facility] Vaccine 00:00:00 [facility] Influenza Virus 2007-05-05 Completed [facility] Vaccine 00:00:00 [facility] Influenza Virus 2007-05-05 Completed [facility] Vaccine 00:00:00 [facility] Influenza Virus 2007-05-05 Completed [facility] Vaccine 00:00:00 [facility] Influenza Virus 2007-05-05 Completed [facility] Vaccine 00:00:00 [facility] Influenza Virus 2007-05-05 Completed [facility] Vaccine 00:00:00 [facility] Influenza Virus 2007-05-05 Completed [facility] Vaccine 00:00:00 [facility] Influenza Virus 2007-05-05 Completed [facility] Vaccine 00:00:00 [facility] Influenza Virus 2007-05-05 Completed [facility] Vaccine 00:00:00 [facility] Influenza Virus 2007-05-05 Completed [facility] Vaccine 00:00:00 [facility] Influenza Virus 2007-05-05 Completed [facility] Vaccine 00:00:00 [facility] Influenza Virus 2007-05-05 Completed [facility] Vaccine 00:00:00 [facility] Influenza Virus 2007-05-05 Completed [facility] Vaccine 00:00:00 [facility] Influenza Virus 2007-05-05 Completed [facility] Vaccine 00:00:00 [facility] Influenza Virus 2007-05-05 Completed [facility] Vaccine 00:00:00 [facility] Influenza Virus 2007-05-05 Completed [facility] Vaccine 00:00:00 [facility] Influenza Virus 2007-05-05 Completed [facility] Vaccine 00:00:00 [facility] Influenza Virus 2007-05-05 Completed [facility] Vaccine 00:00:00 [facility] Influenza Virus 2007-05-05 Completed [facility] Vaccine 00:00:00 [facility] Influenza Virus 2007-05-05 Completed [facility] Vaccine 00:00:00 [facility] Influenza Virus 2007-05-05 Completed [facility] Vaccine 00:00:00 [facility] Influenza Virus 2007-05-05 Completed [facility] Vaccine 00:00:00 [facility] Influenza Virus 2007-05-05 Completed [facility] Vaccine 00:00:00 [facility] Influenza Virus 2007-05-05 Completed [facility] Vaccine 00:00:00 [facility] Influenza Virus 2007-05-05 Completed [facility] Vaccine 00:00:00 [facility] Influenza Virus 2007-05-05 Completed [facility] Vaccine 00:00:00 [facility] Influenza Virus 2007-05-05 Completed [facility] Vaccine 00:00:00 [facility] Influenza Virus 2007-05-05 Completed [facility] Vaccine 00:00:00 [facility] Influenza Virus 2007-05-05 Completed [facility] Vaccine 00:00:00 [facility] Influenza Virus 2007-05-05 Completed [facility] Vaccine 00:00:00 [facility] Influenza Virus 2007-05-05 Completed [facility] Vaccine 00:00:00 [facility] Influenza Virus 2007-05-05 Completed [facility] Vaccine 00:00:00 [facility] Influenza Virus 2007-05-05 Completed [facility] Vaccine 00:00:00 [facility] Influenza Virus 2007-05-05 Completed [facility] Vaccine 00:00:00 [facility] Influenza Virus 2007-05-05 Completed [facility] Vaccine 00:00:00 [facility] Influenza Virus 2007-05-05 Completed [facility] Vaccine 00:00:00 [facility] Influenza Virus 2007-05-05 Completed [facility] Vaccine 00:00:00 [facility] Influenza Virus 2007-05-05 Completed [facility] Vaccine 00:00:00 [facility] Influenza Virus 2007-05-05 Completed [facility] Vaccine 00:00:00 [facility] Influenza Virus 2007-05-05 Completed [facility] Vaccine 00:00:00 [facility] Influenza Virus 2005-06-18 Completed [facility] of Vaccine - Whole 00:00:00 [facility] Influenza Virus 2005-06-18 Completed [facility] of Vaccine - Whole 00:00:00 [facility] Influenza Virus 2005-06-18 Completed [facility] of Vaccine - Whole 00:00:00 [facility] Influenza Virus 2005-06-18 Completed [facility] Vaccine - Whole 00:00:00 [facility] Influenza Virus 2005-06-18 Completed [facility] Vaccine - Whole 00:00:00 [facility] Influenza Virus 2005-06-18 Completed [facility] Vaccine - Whole 00:00:00 [facility] Influenza Virus 2005-06-18 Completed [facility] Vaccine - Whole 00:00:00 [facility] Influenza Virus 2005-06-18 Completed [facility] Vaccine - Whole 00:00:00 [facility] Influenza Virus 2005-06-18 Completed [facility] Vaccine - Whole 00:00:00 [facility] Influenza Virus 2005-06-18 Completed [facility] Vaccine - Whole 00:00:00 [facility] Influenza Virus 2005-06-18 Completed [facility] Vaccine - Whole 00:00:00 [facility] Influenza Virus 2005-06-18 Completed [facility] Vaccine - Whole 00:00:00 [facility] Influenza Virus 2005-06-18 Completed [facility] Vaccine - Whole 00:00:00 [facility] Influenza Virus 2005-06-18 Completed [facility] Vaccine - Whole 00:00:00 [facility] Influenza Virus 2005-06-18 Completed [facility] of Vaccine - Whole 00:00:00 [facility] Influenza Virus 2005-06-18 Completed [facility] Vaccine - Whole 00:00:00 [facility] Influenza Virus 2005-06-18 Completed [facility] Vaccine - Whole 00:00:00 [facility] Influenza Virus 2005-06-18 Completed [facility] Vaccine - Whole 00:00:00 [facility] Influenza Virus 2005-06-18 Completed [facility] Vaccine - Whole 00:00:00 [facility] Influenza Virus 2005-06-18 Completed [facility] Vaccine - Whole 00:00:00 [facility] Influenza Virus 2005-06-18 Completed [facility] Vaccine - Whole 00:00:00 [facility] Influenza Virus 2005-06-18 Completed [facility] Vaccine - Whole 00:00:00 [facility] Influenza Virus 2005-06-18 Completed [facility] Vaccine - Whole 00:00:00 [facility] Influenza Virus 2005-06-18 Completed [facility] Vaccine - Whole 00:00:00 [facility] Influenza Virus 2005-06-18 Completed [facility] Vaccine - Whole 00:00:00 [facility] Influenza Virus 2005-06-18 Completed [facility] Vaccine - Whole 00:00:00 [facility] Influenza Virus 2005-06-18 Completed [facility] Vaccine - Whole 00:00:00 [facility] Influenza Virus 2005-06-18 Completed [facility] Vaccine - Whole 00:00:00 [facility] Influenza Virus 2005-06-18 Completed [facility] Vaccine - Whole 00:00:00 [facility] Influenza Virus 2005-06-18 Completed [facility] Vaccine - Whole 00:00:00 [facility] Influenza Virus 2005-06-18 Completed [facility] Vaccine - Whole 00:00:00 [facility] Influenza Virus 2005-06-18 Completed [facility] Vaccine - Whole 00:00:00 [facility] Influenza Virus 2005-06-18 Completed [facility] Vaccine - Whole 00:00:00 [facility] Influenza Virus 2005-06-18 Completed [facility] Vaccine - Whole 00:00:00 [facility] Influenza Virus 2005-06-18 Completed [facility] Vaccine - Whole 00:00:00 [facility] Influenza Virus 2005-06-18 Completed [facility] Vaccine - Whole 00:00:00 [facility] Influenza Virus 2005-06-18 Completed [facility] Vaccine - Whole 00:00:00 [facility] Influenza Virus 2005-06-18 Completed [facility] Vaccine - Whole 00:00:00 [facility] Influenza Virus 2005-06-18 Completed [facility] Vaccine - Whole 00:00:00 [facility] Influenza Virus 2005-06-18 Completed [facility] Vaccine - Whole 00:00:00 [facility] Influenza Virus 2005-06-18 Completed [facility] Vaccine - Whole 00:00:00 [facility] Influenza Virus 2005-06-18 Completed [facility] Vaccine - Whole 00:00:00 [facility] Influenza Virus 2005-06-18 Completed [facility] Vaccine - Whole 00:00:00 [facility] Influenza Virus 2005-06-18 Completed [facility] Vaccine - Whole 00:00:00 [facility] Influenza Virus 2005-06-18 Completed [facility] Vaccine - Whole 00:00:00 [facility] Influenza Virus 2005-06-18 Completed [facility] Vaccine - Whole 00:00:00 [facility] Influenza Virus 2005-06-18 Completed [facility] Vaccine - Whole 00:00:00 [facility] Influenza Virus 2005-06-18 Completed [facility] Vaccine - Whole 00:00:00 [facility] Influenza Virus 2005-06-18 Completed [facility] Vaccine - Whole 00:00:00 [facility] Influenza Virus 2005-06-18 Completed [facility] Vaccine - Whole 00:00:00 [facility] Influenza Virus 2005-06-18 Completed [facility] Vaccine - Whole 00:00:00 [facility] Influenza Virus 2005-06-18 Completed [facility] Vaccine - Whole 00:00:00 [facility] Influenza Virus 2005-05-07 Completed [facility] Vaccine - Whole 00:00:00 [facility] Influenza Virus 2005-05-07 Completed [facility] Vaccine - Whole 00:00:00 [facility] Influenza Virus 2005-05-07 Completed [facility] Vaccine - Whole 00:00:00 [facility] Influenza Virus 2005-05-07 Completed [facility] Vaccine - Whole 00:00:00 [facility] Influenza Virus 2005-05-07 Completed [facility] Vaccine - Whole 00:00:00 [facility] Influenza Virus 2005-05-07 Completed [facility] Vaccine - Whole 00:00:00 [facility] Influenza Virus 2005-05-07 Completed [facility] Vaccine - Whole 00:00:00 [facility] Influenza Virus 2005-05-07 Completed [facility] of Vaccine - Whole 00:00:00 [facility] Influenza Virus 2005-05-07 Completed [facility] Vaccine - Whole 00:00:00 [facility] Influenza Virus 2005-05-07 Completed [facility] of Vaccine - Whole 00:00:00 [facility] Influenza Virus 2005-05-07 Completed [facility] of Vaccine - Whole 00:00:00 [facility] Influenza Virus 2005-05-07 Completed [facility] Vaccine - Whole 00:00:00 [facility] Influenza Virus 2005-05-07 Completed [facility] of Vaccine - Whole 00:00:00 [facility] Influenza Virus 2005-05-07 Completed [facility] of Vaccine - Whole 00:00:00 [facility] Influenza Virus 2005-05-07 Completed [facility] Vaccine - Whole 00:00:00 [facility] Influenza Virus 2005-05-07 Completed [facility] of Vaccine - Whole 00:00:00 [facility] Influenza Virus 2005-05-07 Completed [facility] Vaccine - Whole 00:00:00 [facility] Influenza Virus 2005-05-07 Completed [facility] Vaccine - Whole 00:00:00 [facility] Influenza Virus 2005-05-07 Completed [facility] Vaccine - Whole 00:00:00 [facility] Influenza Virus 2005-05-07 Completed [facility] Vaccine - Whole 00:00:00 [facility] Influenza Virus 2005-05-07 Completed [facility] of Vaccine - Whole 00:00:00 [facility] Influenza Virus 2005-05-07 Completed [facility] of Vaccine - Whole 00:00:00 [facility] Influenza Virus 2005-05-07 Completed [facility] Vaccine - Whole 00:00:00 [facility] Influenza Virus 2005-05-07 Completed [facility] of Vaccine - Whole 00:00:00 [facility] Influenza Virus 2005-05-07 Completed [facility] Vaccine - Whole 00:00:00 [facility] Influenza Virus 2005-05-07 Completed [facility] of Vaccine - Whole 00:00:00 [facility] Influenza Virus 2005-05-07 Completed [facility] of Vaccine - Whole 00:00:00 [facility] Influenza Virus 2005-05-07 Completed [facility] of Vaccine - Whole 00:00:00 [facility] Influenza Virus 2005-05-07 Completed [facility] of Vaccine - Whole 00:00:00 [facility] Influenza Virus 2005-05-07 Completed [facility] Vaccine - Whole 00:00:00 [facility] Influenza Virus 2005-05-07 Completed [facility] Vaccine - Whole 00:00:00 [facility] Influenza Virus 2005-05-07 Completed [facility] of Vaccine - Whole 00:00:00 [facility] Influenza Virus 2005-05-07 Completed [facility] Vaccine - Whole 00:00:00 [facility] Influenza Virus 2005-05-07 Completed [facility] of Vaccine - Whole 00:00:00 [facility] Influenza Virus 2005-05-07 Completed [facility] Vaccine - Whole 00:00:00 [facility] Influenza Virus 2005-05-07 Completed [facility] Vaccine - Whole 00:00:00 [facility] Influenza Virus 2005-05-07 Completed [facility] of Vaccine - Whole 00:00:00 [facility] Influenza Virus 2005-05-07 Completed [facility] of Vaccine - Whole 00:00:00 [facility] Influenza Virus 2005-05-07 Completed [facility] of Vaccine - Whole 00:00:00 [facility] Influenza Virus 2005-05-07 Completed [facility] of Vaccine - Whole 00:00:00 [facility] Influenza Virus 2005-05-07 Completed [facility] Vaccine - Whole 00:00:00 [facility] Influenza Virus 2005-05-07 Completed [facility] Vaccine - Whole 00:00:00 [facility] Influenza Virus 2005-05-07 Completed [facility] Vaccine - Whole 00:00:00 [facility] Influenza Virus 2005-05-07 Completed [facility] Vaccine - Whole 00:00:00 [facility] Influenza Virus 2005-05-07 Completed [facility] Vaccine - Whole 00:00:00 [facility] Influenza Virus 2005-05-07 Completed [facility] of Vaccine - Whole 00:00:00 [facility] Influenza Virus 2005-05-07 Completed [facility] of Vaccine - Whole 00:00:00 [facility] Influenza Virus 2005-05-07 Completed [facility] of Vaccine - Whole 00:00:00 [facility] Influenza Virus 2005-05-07 Completed [facility] Vaccine - Whole 00:00:00 [facility] Influenza Virus 2005-05-07 Completed [facility] of Vaccine - Whole 00:00:00 [facility] Influenza Virus 2005-05-07 Completed [facility] of Vaccine - Whole 00:00:00 [facility] Influenza Virus 2005-05-07 Completed [facility] Vaccine - Whole 00:00:00 [facility] HIB 4 Dose Schedule 2004-01-31 Completed [facility] rsity of 00:00:00 [facility] Hep B, Adol or Pedi 2004-01-31 Completed Unive rsity of Dosage 00:00:00 [facility] Pediarix (dtap/hep 2004-01-31 Completed Univer sity of B/ipv) 00:00:00 [facility] HIB 4 Dose Schedule 2004-01-31 Completed Unive rsity of 00:00:00 [facility] Hep B, Adol or Pedi 2004-01-31 Completed Unive rsity of Dosage 00:00:00 [facility] Pediarix (dtap/hep 2004-01-31 Completed Univer sity of B/ipv) 00:00:00 [facility] HIB 4 Dose Schedule 2004-01-31 Completed Unive rsity of 00:00:00 [facility] Hep B, Adol or Pedi 2004-01-31 Completed Unive rsity of Dosage 00:00:00 [facility] Pediarix (dtap/hep 2004-01-31 Completed Univer sity of B/ipv) 00:00:00 [facility] HIB 4 Dose Schedule 2004-01-31 Completed Unive rsity of 00:00:00 [facility] Hep B, Adol or Pedi 2004-01-31 Completed Unive rsity of Dosage 00:00:00 [facility] Pediarix (dtap/hep 2004-01-31 Completed Univer sity of B/ipv) 00:00:00 [facility] HIB 4 Dose Schedule 2004-01-31 [...] 2004-01-31 Completed Univer sity of B/ipv) 00:00:00 [facility] HIB 4 Dose Schedule 2004-01-31 [...] 2004-01-31 Completed Univer sity of B/ipv) 00:00:00 [facility] HIB 4 Dose Schedule 2004-01-31 [...] 2004-01-31 Completed Univer sity of B/ipv) 00:00:00 [facility] HIB 4 Dose Schedule 2004-01-31 Completed [facility] rsity of 00:00:00 [facility] Hep B, Adol or Pedi 2004-01-31 Completed Unive rsity of Dosage 00:00:00 [facility] Pediarix (dtap/hep 2004-01-31 Completed Univer sity of B/ipv) 00:00:00 [facility] HIB 4 Dose Schedule 2004-01-31 Completed [facility]ive rsity of 00:00:00 [facility] Hep B, Adol or Pedi 2004-01-31 Completed Unive rsity of Dosage 00:00:00 [facility] Pediarix (dtap/hep 2004-01-31 Completed Univer sity of B/ipv) 00:00:00 [facility] HIB 4 Dose Schedule 2004-01-31 Completed [facility]ive rsity of 00:00:00 [facility] Hep B, Adol or Pedi 2004-01-31 Completed Unive rsity of Dosage 00:00:00 [facility] Pediarix (dtap/hep 2004-01-31 Completed Univer sity of B/ipv) 00:00:00 [facility] HIB 4 Dose Schedule 2004-01-31 Completed [facility]ive rsity of 00:00:00 [facility] Hep B, Adol or Pedi 2004-01-31 Completed [facility]ive rsity of Dosage 00:00:00 [facility] Pediarix (dtap/hep 2004-01-31 Completed Univer sity of B/ipv) 00:00:00 [facility] HIB 4 Dose Schedule 2004-01-31 Completed [facility]ive rsity of 00:00:00 [facility] Hep B, Adol or Pedi 2004-01-31 Completed [facility]ive rsity of Dosage 00:00:00 [facility] Pediarix (dtap/hep 2004-01-31 Completed Univer sity of B/ipv) 00:00:00 [facility] HIB 4 Dose Schedule 2004-01-31 Completed [facility]ive rsity of 00:00:00 [facility] Hep B, Adol or Pedi [...] 2004-01-31 Completed Univer sity of B/ipv) 00:00:00 [facility] HIB 4 Dose Schedule 2004-01-31 Completed [facility] rsity of 00:00:00 [facility] Hep B, Adol or Pedi 2004-01-31 Completed [facility]ive rsity of Dosage 00:00:00 [facility] Pediarix (dtap/hep 2004-01-31 Completed Univer sity of B/ipv) 00:00:00 [facility] HIB 4 Dose Schedule 2004-01-31 Completed Unive rsity of 00:00:00 [facility] Hep B, Adol or Pedi 2004-01-31 Completed Unive rsity of Dosage 00:00:00 [facility] Pediarix (dtap/hep 2004-01-31 Completed Univer sity of B/ipv) 00:00:00 [facility] HIB 4 Dose Schedule 2004-01-31 Completed [facility]ive rsity of 00:00:00 [facility] Hep B, Adol or Pedi 2004-01-31 Completed [facility]ive rsity of Dosage 00:00:00 [facility] Pediarix (dtap/hep 2004-01-31 Completed Univer sity of B/ipv) 00:00:00 [facility] HIB 4 Dose Schedule 2004-01-31 Completed [facility] rsity of 00:00:00 [facility] Hep B, Adol or Pedi 2004-01-31 Completed [facility]ive rsity of Dosage 00:00:00 [facility] Pediarix (dtap/hep 2004-01-31 Completed Univer sity of B/ipv) 00:00:00 [facility] HIB 4 Dose Schedule 2004-01-31 Completed [facility] of 00:00:00 [facility] Hep B, Adol or Pedi 2004-01-31 Completed [facility]ive rsity of Dosage 00:00:00 [facility] Pediarix (dtap/hep 2004-01-31 Completed Univer sity of B/ipv) 00:00:00 [facility] HIB 4 Dose Schedule 2004-01-31 [...] 2004-01-31 Completed Univer sity of B/ipv) 00:00:00 [facility] HIB 4 Dose Schedule 2004-01-31 [...] 2004-01-31 Completed Univer sity of B/ipv) 00:00:00 [facility] HIB 4 Dose Schedule 2004-01-31 Completed [facility] of 00:00:00 [facility] Hep B, Adol or Pedi 2004-01-31 Completed [facility] of Dosage 00:00:00 [facility] Pediarix (dtap/hep 2004-01-31 Completed Univer sity of B/ipv) 00:00:00 [facility] HIB 4 Dose Schedule 2004-01-31 Completed [facility]ive rsity of 00:00:00 [facility] Hep B, Adol or Pedi 2004-01-31 Completed [facility]ive [facility] of Dosage 00:00:00 [facility] Pediarix (dtap/hep 2004-01-31 Completed Univer sity of B/ipv) 00:00:00 [facility] HIB 4 Dose Schedule 2004-01-31 Completed [facility] of 00:00:00 [facility] Hep B, Adol or Pedi 2004-01-31 Completed [facility] of Dosage 00:00:00 [facility] Pediarix (dtap/hep 2004-01-31 Completed Univer sity of B/ipv) 00:00:00 [facility] HIB 4 Dose Schedule 2004-01-31 Completed [facility]ive rsity of 00:00:00 [facility] Hep B, Adol or Pedi 2004-01-31 Completed [facility]ive [facility]ity of Dosage 00:00:00 [facility] Pediarix (dtap/hep 2004-01-31 Completed Univer sity of B/ipv) 00:00:00 [facility] HIB 4 Dose Schedule 2004-01-31 Completed [facility] of 00:00:00 [facility] Hep B, Adol or Pedi 2004-01-31 Completed [facility] of Dosage 00:00:00 [facility] Pediarix (dtap/hep 2004-01-31 Completed Univer [facility]ity of B/ipv) 00:00:00 [facility] HIB 4 Dose Schedule 2004-01-31 Completed [facility] of 00:00:00 [facility] Hep B, Adol or Pedi 2004-01-31 Completed Unive [facility] of Dosage 00:00:00 [facility] Pediarix (dtap/hep 2004-01-31 Completed Univer sity of B/ipv) 00:00:00 [facility] HIB 4 Dose Schedule 2004-01-31 Completed Unive [...] 2004-01-31 Completed Univer sity of B/ipv) 00:00:00 [facility] HIB 4 Dose Schedule 2004-01-31 [...] 2004-01-31 Completed Univer sity of B/ipv) 00:00:00 [facility] HIB 4 Dose Schedule 2004-01-31 [...] 2004-01-31 Completed Univer sity of B/ipv) 00:00:00 [facility] HIB 4 Dose Schedule 2004-01-31 Completed Unive rsity of 00:00:00 [facility] Hep B, Adol or Pedi 2004-01-31 Completed Unive rsity of Dosage 00:00:00 [facility] Pediarix (dtap/hep 2004-01-31 Completed Univer sity of B/ipv) 00:00:00 [facility] HIB 4 Dose Schedule 2004-01-31 Completed [facility]ive rsity of 00:00:00 [facility] Hep B, Adol or Pedi 2004-01-31 Completed [facility]ive rsity of Dosage 00:00:00 [facility] Pediarix (dtap/hep 2004-01-31 Completed Univer sity of B/ipv) 00:00:00 [facility] HIB 4 Dose Schedule 2004-01-31 Completed [facility]ive rsity of 00:00:00 [facility] Hep B, Adol or Pedi 2004-01-31 Completed [facility]ive rsity of Dosage 00:00:00 [facility] Pediarix (dtap/hep 2004-01-31 Completed Univer sity of B/ipv) 00:00:00 [facility] HIB 4 Dose Schedule 2004-01-31 [...] 2004-01-31 Completed Unive rsity of Dosage 00:00:00 [facility] Pediarix (dtap/hep 2004-01-31 Completed Univer sity of B/ipv) 00:00:00 [facility] HIB 4 Dose Schedule 2004-01-31 Completed Unive rsity of 00:00:00 [facility] Hep B, Adol or Pedi 2004-01-31 Completed Unive rsity of Dosage 00:00:00 [facility] Pediarix (dtap/hep 2004-01-31 Completed Univer sity of B/ipv) 00:00:00 [facility] HIB 4 Dose Schedule 2004-01-31 Completed Unive rsity of 00:00:00 [facility] Hep B, Adol or Pedi 2004-01-31 Completed Unive rsity of Dosage 00:00:00 [facility] Pediarix (dtap/hep 2004-01-31 Completed Univer sity of B/ipv) 00:00:00 [facility] HIB 4 Dose Schedule 2004-01-31 Completed Unive rsity of 00:00:00 [facility] Hep B, Adol or Pedi 2004-01-31 Completed Unive rsity of Dosage 00:00:00 [facility] HIB 4 Dose Schedule 2004-01-31 Completed Unive rsity of 00:00:00 [facility] Hep B, Adol or Pedi 2004-01-31 Completed Unive rsity of Dosage 00:00:00 [facility] Pediarix (dtap/hep 2004-01-31 Completed Univer sity of B/ipv) 00:00:00 [facility] Pediarix (dtap/hep 2004-01-31 Completed Univer sity of B/ipv) 00:00:00 [facility] HIB 4 Dose Schedule 2004-01-31 Completed Unive rsity of 00:00:00 [facility] Hep B, Adol or Pedi 2004-01-31 Completed Unive rsity of Dosage 00:00:00 [facility] Pediarix (dtap/hep 2004-01-31 Completed Univer sity of B/ipv) 00:00:00 [facility] Vital Signs Vital Name Observation Time Observation Value Comments Source Systolic blood 2023-03-04 00:00:00 121 mm[Hg] Univer sity of pressure [facility] Diastolic blood 2023-03-04 00:00:00 81 mm[Hg] Unive rsity of pressure [facility] Heart rate 2023-03-04 00:00:00 86 /min [facility] Respiratory rate 2023-03-04 00:00:00 20 /min [facility] Oxygen saturation in 2023-03-04 00:00:00 95 /min [facility] Arterial blood by [place] [facility] Body temperature 2023-03-03 18:40:00 36.72 [place] [facility] Body height 2023-03-03 18:40:00 172.7 cm [facility] Body weight 2023-03-03 18:40:00 83.915 kg [facility] BMI 2023-03-03 18:40:00 28.13 kg/m2 [facility] Body height 2023-03-02 18:20:00 172.7 cm [facility] Body weight 2023-03-02 18:20:00 82.555 kg [facility] BMI 2023-03-02 18:20:00 27.67 kg/m2 [facility] Systolic blood 2023-02-23 14:45:00 125 mm[Hg] [facility]iver [facility]ity of [facility] Diastolic blood 2023-02-23 14:45:00 84 mm[Hg] Unive rsity of pressure [facility] Respiratory rate 2023-02-23 14:45:00 19 /min [facility] Oxygen saturation in 2023-02-23 14:45:00 94 /min [facility] Arterial blood by [facility] Pulse oximetry Branch Systolic blood 2023-02-23 14:45:00 125 mm[Hg] Univer sity of pressure [facility] Diastolic blood 2023-02-23 14:45:00 84 mm[Hg] Unive rsity of pressure [facility] Respiratory rate 2023-02-23 14:45:00 19 /min [facility] Oxygen saturation in 2023-02-23 14:45:00 94 /min [facility] Arterial blood by [facility] Pulse oximetry Branch Systolic blood 2023-02-22 15:10:00 122 mm[Hg] Univer sity of [facility] Diastolic blood 2023-02-22 15:10:00 79 mm[Hg] Unive rsity of pressure [facility] Heart rate 2023-02-22 15:10:00 73 /min [facility] Respiratory rate 2023-02-22 15:10:00 19 /min Univ ersity of [facility] Body height 2023-02-22 15:10:00 172.7 cm [facility] Body weight 2023-02-22 15:10:00 82.872 kg [facility] BMI 2023-02-22 15:10:00 27.78 kg/m2 [facility] of [facility] Oxygen saturation in 2023-02-22 15:10:00 97 /min [facility] Arterial blood by [facility] Pulse oximetry Branch Systolic blood 2023-02-09 19:28:00 120 mm[Hg] Univer sity of pressure [facility] Diastolic blood 2023-02-09 19:28:00 81 mm[Hg] Unive rsity of pressure [facility] Heart rate 2023-02-09 19:28:00 80 /min [facility] Body height 2023-02-09 19:28:00 172.7 cm [facility] Body weight 2023-02-09 19:28:00 84.55 kg [facility] BMI 2023-02-09 19:28:00 28.34 kg/m2 [facility] ty of [facility] Systolic blood 2023-02-01 18:22:00 134 mm[Hg] Univer sity of pressure [facility] Diastolic blood 2023-02-01 18:22:00 84 mm[Hg] Unive rsity of pressure [facility] Heart rate 2023-02-01 18:22:00 85 /min [facility] Body height 2023-02-01 18:22:00 172.7 cm [facility] Body weight 2023-02-01 18:22:00 83.961 kg [facility] BMI 2023-02-01 18:22:00 28.14 kg/m2 [facility] Systolic blood 2023-02-01 06:44:00 131 mm[Hg] Univer sity of pressure [facility] Diastolic blood 2023-02-01 06:44:00 78 mm[Hg] Unive rsity of pressure [facility] Heart rate 2023-02-01 06:44:00 96 /min [facility] Respiratory rate 2023-02-01 06:44:00 22 /min [facility] Oxygen saturation in 2023-02-01 06:44:00 98 /min [facility]ial blood by [place] [facility] Body temperature 2023-02-01 03:25:00 36.78 [place] [facility] Body height 2023-02-01 03:25:00 172.7 cm [facility] Body weight 2023-02-01 03:25:00 83.915 kg [facility] BMI 2023-02-01 03:25:00 28.13 kg/m2 [facility] Systolic blood 2023-01-28 20:10:00 130 mm[Hg] Univer sity of pressure [facility] Diastolic blood 2023-01-28 20:10:00 83 mm[Hg] Unive rsity of pressure [facility] Heart rate 2023-01-28 20:10:00 78 /min [facility] Body height 2023-01-28 20:10:00 172.7 cm [facility] Body weight 2023-01-28 20:10:00 84.959 kg [facility] BMI 2023-01-28 20:10:00 28.48 kg/m2 [facility] Oxygen saturation in 2023-01-28 20:10:00 100 /min [facility]ial blood by [place] [facility] Systolic blood 2023-01-21 02:45:00 124 mm[Hg] Univer sity of pressure [facility] Diastolic blood 2023-01-21 02:45:00 84 mm[Hg] Unive rsity of pressure [facility] Heart rate 2023-01-21 02:45:00 87 /min [facility] Body temperature 2023-01-21 02:45:00 37.11 [place] [facility] Respiratory rate 2023-01-21 02:45:00 16 /min [facility] Body height 2023-01-21 02:45:00 172.7 cm [facility] Body weight 2023-01-21 02:45:00 83.915 kg [facility] BMI 2023-01-21 02:45:00 28.13 kg/m2 [facility] Oxygen saturation in 2023-01-21 02:45:00 98 /min [facility] Arterial blood by [facility] Pulse oximetry Branch Systolic blood 2023-01-18 17:57:00 111 mm[Hg] Univer sity of pressure [facility] Diastolic blood 2023-01-18 17:57:00 74 mm[Hg] Unive rsity of pressure [facility] Respiratory rate 2023-01-18 17:57:00 16 /min [facility] Oxygen saturation in 2023-01-18 17:57:00 99 /min [facility] Arterial blood by [facility] Pulse oximetry Branch Body temperature 2023-01-18 17:16:00 36.22 [place] [facility] Heart rate 2023-01-18 16:40:00 67 /min [facility] Systolic blood 2023-01-18 17:16:00 106 mm[Hg] Univer sity of pressure [facility] Diastolic blood 2023-01-18 17:16:00 63 mm[Hg] Unive rsity of pressure [facility] Body temperature 2023-01-18 17:16:00 36.22 [place] [facility] Respiratory rate 2023-01-18 17:16:00 15 /min [facility] Oxygen saturation in 2023-01-18 17:16:00 98 /min [facility] Arterial blood by [facility] Pulse oximetry Branch Heart rate 2023-01-18 16:40:00 67 /min [facility] Systolic blood 2023-01-13 18:00:00 124 mm[Hg] Univer sity of pressure [facility] Diastolic blood 2023-01-13 18:00:00 81 mm[Hg] Unive rsity of pressure [facility] Heart rate 2023-01-13 18:00:00 88 /min [facility] Body height 2023-01-13 18:00:00 172.7 cm [facility] Body weight 2023-01-13 18:00:00 83.734 kg [facility] BMI 2023-01-13 18:00:00 28.07 kg/m2 [facility] Systolic blood 2023-01-08 19:52:00 146 mm[Hg] Univer sity of pressure [facility] Diastolic blood 2023-01-08 19:52:00 90 mm[Hg] Unive rsity of pressure [facility] Heart rate 2023-01-08 19:52:00 89 /min [facility] Body temperature 2023-01-08 19:52:00 37.22 [place] [facility] Respiratory rate 2023-01-08 19:52:00 22 /min [facility] Body height 2023-01-08 19:52:00 172.7 cm [facility] Body weight 2023-01-08 19:52:00 83.915 kg [facility] BMI 2023-01-08 19:52:00 28.13 kg/m2 [facility] Oxygen saturation in 2023-01-08 19:52:00 100 /min [facility] Arterial blood by [facility] Pulse oximetry Branch Systolic blood 2022-12-21 13:55:00 137 mm[Hg] Univer sity of pressure [facility] Diastolic blood 2022-12-21 13:55:00 85 mm[Hg] Unive rsity of pressure [facility] Heart rate 2022-12-21 13:55:00 83 /min [facility] Body height 2022-12-21 13:55:00 172.7 cm [facility] Body weight 2022-12-21 13:55:00 84.732 kg [facility] BMI 2022-12-21 13:55:00 28.40 kg/m2 [facility] Oxygen saturation in 2022-12-21 13:55:00 97 /min [facility] Arterial blood by [facility] Pulse oximetry Branch Systolic blood 2022-12-07 02:48:00 132 mm[Hg] Univer sity of pressure [facility] Diastolic blood 2022-12-07 02:48:00 88 mm[Hg] Unive rsity of pressure [facility] Heart rate 2022-12-07 02:48:00 84 /min [facility] of [facility] Body temperature 2022-12-07 02:48:00 37.22 [place] Univ [facility] of [facility] Respiratory rate 2022-12-07 02:48:00 18 /min Univ ersity of [facility] Body height 2022-12-07 02:48:00 170.2 cm [facility] Body weight 2022-12-07 02:48:00 83.915 kg [facility] BMI 2022-12-07 02:48:00 28.98 kg/m2 [facility] ty of [facility] Oxygen saturation in 2022-12-07 02:48:00 98 /min [facility] Arterial blood by [facility] Pulse oximetry Branch Systolic blood 2022-12-03 17:55:00 124 mm[Hg] Univer sity of pressure [facility] Diastolic blood 2022-12-03 17:55:00 77 mm[Hg] Unive rsity of pressure [facility] Heart rate 2022-12-03 17:55:00 78 /min [facility]i ty of [facility] Body temperature 2022-12-03 17:55:00 36 [place] [facility] of [facility] Body height 2022-12-03 17:55:00 172.7 cm [facility] of [facility] Body weight 2022-12-03 17:55:00 85.049 kg [facility] BMI 2022-12-03 17:55:00 28.51 kg/m2 [facility] of [facility] Body height 2022-11-26 18:04:00 172.7 cm [facility] of [facility] Body weight 2022-11-26 18:04:00 83.915 kg [facility] BMI 2022-11-26 18:04:00 28.13 kg/m2 [facility] of [facility] Body mass index 2022-11-26 18:04:00 91.75 % Unive rsity of (BMI) [Percentile] [facility] Systolic blood 2022-11-19 16:10:00 135 mm[Hg] Univer sity of pressure [facility] Diastolic blood 2022-11-19 16:10:00 88 mm[Hg] Unive rsity of pressure [facility] Heart rate 2022-11-19 16:10:00 80 /min [facility] Body height 2022-11-19 16:10:00 172.7 cm [facility] of [facility] Body weight 2022-11-19 16:10:00 86.047 kg [facility] BMI 2022-11-19 16:10:00 28.84 kg/m2 [facility] of [facility] Body mass index 2022-11-19 16:10:00 93.48 % Unive rsity of (BMI) [Percentile] [facility] Oxygen saturation in 2022-11-19 16:10:00 97 /min [facility] Arterial blood by [facility] Pulse oximetry Branch Systolic blood 2022-11-17 17:53:00 101 mm[Hg] Univer sity of pressure [facility] Diastolic blood 2022-11-17 17:53:00 63 mm[Hg] Unive rsity of pressure [facility] Heart rate 2022-11-17 17:53:00 81 /min [facility] of [facility] Body temperature 2022-11-17 17:53:00 36.5 [place] [facility] of [facility] Body height 2022-11-17 17:53:00 172.7 cm [facility] of [facility] Body weight 2022-11-17 17:53:00 86.183 kg [facility] BMI 2022-11-17 17:53:00 28.89 kg/m2 [facility] of [facility] Body mass index 2022-11-17 17:53:00 93.59 % Unive rsity of (BMI) [Percentile] [facility] Systolic blood 2022-11-16 14:15:00 127 mm[Hg] Univer sity of pressure [facility] Diastolic blood 2022-11-16 14:15:00 78 mm[Hg] Unive rsity of pressure [facility] Heart rate 2022-11-16 14:15:00 78 /min [facility] Respiratory rate 2022-11-16 14:15:00 19 /min [facility] Body height 2022-11-16 14:15:00 172.7 cm [facility] Body weight 2022-11-16 14:15:00 86.274 kg [facility] BMI 2022-11-16 14:15:00 28.92 kg/m2 [facility] Body mass index 2022-11-16 14:15:00 93.66 % Unive rsity of (BMI) [Percentile] [facility] Oxygen saturation in 2022-11-16 14:15:00 96 /min [facility] Arterial blood by [place] [facility] Heart rate 2022-11-13 05:05:00 86 /min [facility] Respiratory rate 2022-11-13 05:05:00 16 /min [facility] Oxygen saturation in 2022-11-13 05:05:00 100 /min [facility] blood by [place] [facility] Systolic blood 2022-11-13 02:41:00 124 mm[Hg] Univer sity of pressure [facility] Diastolic blood 2022-11-13 02:41:00 85 mm[Hg] Unive rsity of pressure [facility] Body temperature 2022-11-13 02:41:00 37.11 [place] [facility] Body height 2022-11-13 02:41:00 172.7 cm [facility] Body weight 2022-11-13 02:41:00 85.73 kg [facility] BMI 2022-11-13 02:41:00 28.74 kg/m2 [facility] Body mass index 2022-11-13 02:41:00 93.30 % Unive rsity of (BMI) [Percentile] [facility] Systolic blood 2022-11-03 14:32:00 127 mm[Hg] Univer sity of pressure [facility] Diastolic blood 2022-11-03 14:32:00 82 mm[Hg] Unive rsity of pressure [facility] Heart rate 2022-11-03 14:32:00 87 /min [facility] Body temperature 2022-11-03 14:32:00 36.83 [place] [facility] Respiratory rate 2022-11-03 14:32:00 18 /min [facility] Body height 2022-11-03 14:32:00 172.7 cm [facility] of [facility] Body weight 2022-11-03 14:32:00 85.322 kg [facility]i ty of [facility] BMI 2022-11-03 14:32:00 28.60 kg/m2 [facility] Body mass index 2022-11-03 14:32:00 93.03 % Unive rsity of (BMI) [Percentile] [facility] Oxygen saturation in 2022-11-03 14:32:00 98 /min [facility] Arter[facility] blood by [place] [facility] P[facility] Systolic blood 2022-10-29 12:12:00 113 mm[Hg] Univer sity of pressure [facility] Diastolic blood 2022-10-29 12:12:00 68 mm[Hg] Unive rsity of pressure [facility] Heart rate 2022-10-29 12:12:00 98 /min [facility] of [facility] Body temperature 2022-10-29 12:12:00 36.83 [place] [facility] of [facility] Respiratory rate 2022-10-29 12:12:00 15 /min [facility] ers[facility] of [facility] Oxygen saturation in 2022-10-29 12:12:00 97 /min [facility] Arterial blood by [place] [facility] Body weight 2022-10-29 07:58:00 83.915 kg [facility] BMI 2022-10-29 07:58:00 28.13 kg/m2 [facility] Body mass index 2022-10-29 07:58:00 91.90 % Unive rsity of (BMI) [Percentile] [facility] Systolic blood 2022-10-28 02:00:00 128 mm[Hg] Univer sity of pressure [facility] Diastolic blood 2022-10-28 02:00:00 77 mm[Hg] Unive rsity of pressure [facility] Heart rate 2022-10-28 02:00:00 71 /min [facility] Respiratory rate 2022-10-28 02:00:00 17 /min [facility] Oxygen saturation in 2022-10-28 02:00:00 97 /min [facility] Arterial blood by [facility] Pulse oximetry Branch Body temperature 2022-10-28 00:46:00 36.89 [place] [facility] Body height 2022-10-28 00:46:00 172.7 cm [facility] Body weight 2022-10-28 00:46:00 83.915 kg [facility] BMI 2022-10-28 00:46:00 28.13 kg/m2 [facility] Body mass index 2022-10-28 00:46:00 91.92 % Unive rsity of (BMI) [Percentile] [facility] Systolic blood 2022-10-20 22:00:00 116 mm[Hg] [facility]ity [facility] pressure [facility] Diastolic blood 2022-10-20 22:00:00 81 mm[Hg] Unive rsity of pressure [facility] Heart rate 2022-10-20 22:00:00 91 /min [facility] Respiratory rate 2022-10-20 22:00:00 16 /min [facility] Oxygen saturation in 2022-10-20 22:00:00 98 /min [facility] Arterial blood by [facility] Pulse oximetry Branch Body temperature 2022-10-20 19:24:00 37.22 [place] [facility] Body height 2022-10-20 19:24:00 172.7 cm [facility] Body weight 2022-10-20 19:24:00 83.915 kg [facility] BMI 2022-10-20 19:24:00 28.13 kg/m2 [facility] Body mass index 2022-10-20 19:24:00 91.95 % Unive rsity of (BMI) [Percentile] [place] [facility] Systolic blood 2022-10-09 06:00:00 123 mm[Hg] Univer sity of pressure [facility] Diastolic blood 2022-10-09 06:00:00 74 mm[Hg] [facility]ity of pressure [facility] Heart rate 2022-10-09 06:00:00 74 /min [facility] Respiratory rate 2022-10-09 06:00:00 16 /min Univ ersity of [facility] Oxygen saturation in 2022-10-09 06:00:00 96 /min [facility] Arterial blood by [facility] Pulse oximetry Branch Body temperature 2022-10-09 03:45:00 37.11 [place] [facility] Body height 2022-10-09 03:45:00 172.7 cm [facility] Body weight 2022-10-09 03:45:00 83.099 kg [facility] BMI 2022-10-09 03:45:00 27.86 kg/m2 [facility] Body mass index 2022-10-09 03:45:00 91.28 % Unive rsity of (BMI) [Percentile] [place] [facility] Systolic blood 2022-09-15 13:33:00 125 mm[Hg] Univer sity of pressure [facility] Diastolic blood 2022-09-15 13:33:00 84 mm[Hg] Unive rsity of pressure [facility] Heart rate 2022-09-15 13:33:00 78 /min [facility] Body temperature 2022-09-15 13:33:00 36.78 [place] [facility] Body height 2022-09-15 13:33:00 170.2 cm [facility] Body weight 2022-09-15 13:33:00 83.825 kg [facility] BMI 2022-09-15 13:33:00 28.94 kg/m2 [facility] Body mass index 2022-09-15 13:33:00 93.96 % Unive rsity of (BMI) [Percentile] [place] [facility] Systolic blood 2022-08-19 14:06:00 127 mm[Hg] Univer sity of pressure [place] [facility] Diastolic blood 2022-08-19 14:06:00 85 mm[Hg] Unive rsity of pressure [facility] Branch Heart rate 2022-08-19 14:06:00 93 /min [facility] [place] [facility] Body height 2022-08-19 14:06:00 170.2 cm [facility] [place] [facility] Body weight 2022-08-19 14:06:00 83.19 kg [facility] [place] [facility] BMI 2022-08-19 14:06:00 28.72 kg/m2 [facility] [place] [facility] Body mass index 2022-08-19 14:06:00 93.64 % Unive rsity of (BMI) [Percentile] [facility] ica Per age and sex Branch Oxygen saturation in 2022-08-19 14:06:00 97 /min University of Arterial blood by [facility] Pulse oximetry Branch Systolic blood 2022-08-18 16:31:00 115 mm[Hg] Univer sity of pressure [facility] Diastolic blood 2022-08-18 16:31:00 76 mm[Hg] Unive rsity of pressure [facility] Heart rate 2022-08-18 16:31:00 80 /min [facility] [place] [facility] Respiratory rate 2022-08-18 16:31:00 18 /min Univ ersity of [facility] Body weight 2022-08-18 16:31:00 85.078 kg Universi ty of [facility] Oxygen saturation in 2022-08-18 16:31:00 95 /min [facility] of Arterial blood by [facility] Pulse oximetry Branch Systolic blood 2022-07-13 02:06:00 134 mm[Hg] Univer sity of pressure [facility] Branch Diastolic blood 2022-07-13 02:06:00 83 mm[Hg] Unive rsity of pressure [facility] Heart rate 2022-07-13 02:06:00 108 /min [facility] [place] [facility] Body temperature 2022-07-13 02:06:00 37 [place] Univ ersity of [facility] Branch Respiratory rate 2022-07-13 02:06:00 18 /min Univ ersity of [facility] Branch Body height 2022-07-13 02:06:00 172.7 cm [facility] [place] [facility] Body weight 2022-07-13 02:06:00 83.915 kg [facility] [place] [facility] BMI 2022-07-13 02:06:00 28.13 kg/m2 [facility] [place] [facility] Body mass index 2022-07-13 02:06:00 92.48 % Unive rsity of (BMI) [Percentile] [place] [facility] Per age and sex Branch Oxygen saturation in 2022-07-13 02:06:00 99 /min [facility] Arterial blood by [place] [facility] Pulse oximetry Branch Systolic blood 2022-06-22 14:59:00 122 mm[Hg] Univer sity of pressure [facility] Diastolic blood 2022-06-22 14:59:00 83 mm[Hg] Unive rsity of pressure [facility] Heart rate 2022-06-22 14:59:00 89 /min [facility] [place] [facility] Respiratory rate 2022-06-22 14:59:00 19 /min Univ ersity of [place] [facility] Body height 2022-06-22 14:59:00 172.7 cm [facility] [place] [facility] Body weight 2022-06-22 14:59:00 83.462 kg [facility] [place] [facility] BMI 2022-06-22 14:59:00 27.98 kg/m2 [facility] [place] [facility] Body mass index 2022-06-22 14:59:00 92.21 % Unive rsity of (BMI) [Percentile] [place] [facility] Per age and sex Branch Oxygen saturation in 2022-06-22 14:59:00 96 /min [facility] Arterial blood by [place] [facility] Pulse oximetry Branch Systolic blood 2022-06-21 09:30:00 99 mm[Hg] Univer sity of pressure [facility] Diastolic blood 2022-06-21 09:30:00 69 mm[Hg] Unive rsity of pressure [facility] Heart rate 2022-06-21 09:30:00 94 /min [facility] [place] [facility] Respiratory rate 2022-06-21 09:30:00 20 /min Univ ersity of [place] [facility] Oxygen saturation in 2022-06-21 09:30:00 96 /min [facility] Arterial blood by [place] [facility] Pulse oximetry Branch Body temperature 2022-06-21 04:01:00 37.11 [place] Univ ersity of [place] [facility] Body height 2022-06-21 04:01:00 172.7 cm [facility] [place] [facility] Body weight 2022-06-21 04:01:00 83.915 kg [facility] [place] [facility] BMI 2022-06-21 04:01:00 28.13 kg/m2 Universi ty of [facility] Body mass index 2022-06-21 04:01:00 92.59 % Unive rsity of (BMI) [Percentile] [facility] ica Per age and sex Branch Systolic blood 2022-06-17 04:30:00 126 mm[Hg] Univer sity of pressure [facility] Branch Diastolic blood 2022-06-17 04:30:00 76 mm[Hg] Unive rsity of pressure [facility] Heart rate 2022-06-17 04:30:00 125 /min Universi ty of [facility] Respiratory rate 2022-06-17 04:30:00 20 /min Univ ersity of [facility] Oxygen saturation in 2022-06-17 04:30:00 100 /min [facility] Arterial blood by [place] [facility] Pulse oximetry Branch Body temperature 2022-06-16 23:56:00 37.44 [place] Univ ersity of [facility] Body weight 2022-06-16 21:02:00 82.101 kg Universi ty of [facility] Systolic blood 2022-05-29 07:01:00 116 mm[Hg] Univer sity of pressure [facility] Diastolic blood 2022-05-29 07:01:00 64 mm[Hg] Unive rsity of pressure [facility] Heart rate 2022-05-29 07:01:00 116 /min Universi ty of [facility] Respiratory rate 2022-05-29 07:01:00 18 /min Univ ersity of [facility] Oxygen saturation in 2022-05-29 07:01:00 97 /min [facility] Arterial blood by [place] [facility] Pulse oximetry Branch Body temperature 2022-05-29 01:29:00 36.94 [place] Univ ersity of [facility] Branch Body height 2022-05-29 01:29:00 172.7 cm Universi ty of [facility] Body weight 2022-05-29 01:29:00 79.334 kg Universi ty of [facility] BMI 2022-05-29 01:29:00 26.59 kg/m2 Universi ty of [facility] Body mass index 2022-05-29 01:29:00 87.81 % Unive rsity of (BMI) [Percentile] [facility] ical Per age and sex Branch HEIGHT 2022-04-08 13:03:00 172.7 cm WEIGHT 2022-04-08 13:03:00 82.01 kg HEIGHT 2022-04-08 13:03:00 172.7 cm WEIGHT 2022-04-08 13:03:00 82.01 kg HEIGHT 2022-04-08 13:03:00 172.7 cm WEIGHT 2022-04-08 13:03:00 82.01 kg Systolic blood 2019-03-01 16:13:00 133 mm[Hg] Univer sity of pressure [facility] Diastolic blood 2019-03-01 16:13:00 77 mm[Hg] Unive rsity of pressure [facility] Heart rate 2019-03-01 16:13:00 76 /min Universi ty of [facility] Body temperature 2019-03-01 16:13:00 36.89 [place] Univ ersity of [facility] Respiratory rate 2019-03-01 16:13:00 20 /min Univ ersity of [facility] Body height 2019-03-01 16:13:00 168.1 cm Universi ty of [facility] Body weight 2019-03-01 16:13:00 58.3 kg [facility] [place] [facility] BMI 2019-03-01 16:13:00 20.63 kg/m2 Universi ty of [facility] Systolic blood 2019-03-01 16:13:00 133 mm[Hg] Univer sity of pressure [facility] Diastolic blood 2019-03-01 16:13:00 77 mm[Hg] Unive rsity of pressure [facility] Heart rate 2019-03-01 16:13:00 76 /min Universi ty of [facility] Body temperature 2019-03-01 16:13:00 36.89 [place] Univ ersity of [facility] Respiratory rate 2019-03-01 16:13:00 20 /min Univ ersity of [facility] Body height 2019-03-01 16:13:00 168.1 cm Universi ty of [facility] Body weight 2019-03-01 16:13:00 58.3 kg Universi ty of [facility] BMI 2019-03-01 16:13:00 20.63 kg/m2 Universi ty of [facility] Systolic blood 2018-03-08 19:32:00 127 mm[Hg] Univer sity of pressure [facility] Diastolic blood 2018-03-08 19:32:00 84 mm[Hg] Unive rsity of [facility] Heart rate 2018-03-08 19:32:00 92 /min [facility] Body temperature 2018-03-08 19:32:00 36.67 [place] [facility] Body height 2018-03-08 19:32:00 [facility] Body weight 2018-03-08 19:32:00 [facility] 2018-03-08 19:32:00 18.52 kg/m2 [facility] Systolic blood 2022-04-08 13:03:00 125 mm[Hg] [facility] Diastolic blood 2022-04-08 13:03:00 82 mm[Hg] [facility] Heart rate 2022-04-08 13:03:00 80 /min [facility] Body temperature 2022-04-08 13:03:00 37.11 Lissett [facility] Body height 2022-04-08 13:03:00 172.7 cm [facility] Body weight 2022-04-08 13:03:00 82.01 kg [facility] BMI 2022-04-08 13:03:00 27.49 kg/m2 [facility] Body mass index 2022-04-08 13:03:00 91.28 % [facility] (BMI) [Percentile] Medical C enter Per age and sex Oxygen saturation in 2022-04-08 13:03:00 96 /min [facility] Arterial blood by Medical Ce nter Pulse oximetry Procedures Procedure Date / Time Performing Clinician Source Performed PATIENT 2023-03-04 Doctor Unassigned, No [facility] TEACHING/INSTRUCTIONS- 05:01:00 Name Medical B [facility] OUTPATIENT EKG-12 LEAD [facility] Branch TROPONIN I 2023-03-03 [facility] 19:25[facility]00 [facility] COMP. METABOLIC PANEL 2023-03-03 [facility] ([id number]) 19:25:00 [facility] N-TERMINAL PRO-BNP 2023-03-03 [facility] 19:25:00 Medical Branch CONSENT/REFUSAL FOR 2023-03-03 Doctor Unassigned, No [facility] DIAGNOSIS AND TREATMENT 18:26:39 [facility] XR HAND 3+ VW RIGHT 2023-03-02 Barrie Malhotra [facility] 18:23:39 [facility] ELECTROPHYSIOLOGY PROCEDURE 2023-02-23 Prim[facility] 14:13:51 [facility] AUTHORIZATION FOR RELEASE 2023-02-19 Doctor Unassigned, No [facility] 05:01:00 [facility] EKG-12 LEAD 2023-02-01 Arsalan Grant [facility] xa 06:36:[address] [facility] [address] CHEST PULMONARY 2023-02-01 Arsalan Grant [facility] ANGIOGRAM 05:31:00 [facility] TROPONIN I 2023-02-01 Arsalan Grant [facility] xas 05:13:00 [facility] COMP. METABOLIC PANEL 2023-02-01 Arsalan Grant [facility] ([id number]) 05:13:00 [facility] URINE DRUG (IMMUNOASSAY) - 2023-02-01 Arsalan Grant [facility] COMPREHENSIVE DRUG SCREEN 05:13:00 Medica [facility] CBC WITH DIFF 2023-02-01 Arsalan Grant [facility] xa 05:13:00 [facility] XR CHEST 1 VW 2023-02-01 Arsalan Grant [facility] xas 04:17:00 [facility] CONSENT/REFUSAL FOR 2023-02-01 Doctor Unassigned, No [facility] DIAGNOSIS AND TREATMENT 03:26:07 [facility] MEDICATION CORRESPONDENCE 2023-01-28 Doctor Unassigned, No [facility] 05:01:00 [facility] CONSENT/REFUSAL FOR 2023-01-21 Doctor Unassigned, No [facility] DIAGNOSIS AND TREATMENT 02:34:06 [facility] FL TIME OR (NON-REPORTABLE) 2023-01-18 Hannah Ventura [facility] 17:11:45 Medical Branch FL TIME OR (NON-REPORTABLE) 2023-01-18 [facility] 17:11:45 Medical Branch METACARPAL ORIF 2023-01-18 Hannah Ventura [facility] 15:47:00 Medical Branch POCT GLUCOSE (AUTOMATED) 2023-01-18 Hannah Ventura [facility] 14:50:00 Medical Branch POCT GLUCOSE (AUTOMATED) 2023-01-18 Hannah Ventura [facility] 14:50:00 Medical Branch EXTERNAL PROVIDER RECORDS 2023-01-18 Doctor Unassigned, No [facility] 05:01:00 Name Medical Branch BASIC METABOLIC PANEL (NA, 2023-01-15 [facility], CL, CO2, GLUCOSE, BUN, 13:06:00 Medica Branch CREATININE, CA) CBC WITH DIFF 2023-01-15 Hannah Ventura [facility] 13:06:00 Medical Branch URINALYSIS 2023-01-15 Hannah Ventura [facility] 13:06:00 Medical Branch HB ABO GROUPING 2023-01-15 Hannah Ventura [facility] 13:06:00 Medical Branch ASSIGNMENT OF BENEFITS 2023-01-15 Doctor Unassigned, No [facility] [place] 12:48:04 Name Medical [facility] EXTERNAL PROVIDER RECORDS 2023-01-14 Doctor Unassigned, No [facility] 05:01:00 Name Medical Branch EXTERNAL PROVIDER RECORDS 2023-01-14 Doctor Unassigned, No [facility] 05:01:00 Name Medical Branch REFERRAL- REQUEST/RESPONSE 2023-01-13 Doctor Unassigned, No [facility] 05:01:00 Name Medical Branch ASSIGNMENT OF BENEFITS 2023-01-08 Doctor Unassigned, No Uni versity [facility] 22:03:56 Name Medical Branch XR HAND <3 VW RIGHT 2023-01-08 [facility] 20:29:08 Medical Branch CONSENT/REFUSAL FOR 2023-01-08 Doctor Unassigned, No [facility] DIAGNOSIS AND TREATMENT 19:46:31 Name Medical Branch REFERRAL- REQUEST/RESPONSE 2023-01-08 Doctor Unassigned, No [facility] 05:01:00 Name Medical Branch INSURANCE CORRESPONDENCE 2022-12-10 Doctor Unassigned, No [facility] [place] 05:01:00 Name Medical Branch PHYSICIAN ORDERS 2022-12-08 Doctor Unassigned, No [facility] 05:01:00 Name Medical Branch ASSIGNMENT OF BENEFITS 2022-12-07 Doctor Unassigned, No [facility] 04:38:17 Name Medical Branch XR CHEST 1 VW 2022-12-07 Tyron Nuñez [facility] xa 03:58:05 Medical Branch NOTICE OF PRIVACY PRACTICES 2022-12-07 Doctor Unassigned, N o [facility] 02:24:27 Name Medical Branch CONSENT/REFUSAL FOR 2022-12-07 Doctor Unassigned, No [facility] DIAGNOSIS AND TREATMENT 02:23:58 Name Medical Branch INSURANCE CORRESPONDENCE 2022-11-18 Doctor Unassigned, No [facility] 05:01:00 Name Medical Branch XR SPINE THORACIC 2 VW 2022-11-17 Beena Ramirez [facility] 18:11:54 Medical Branch XR LUMBAR SPINE 2 VW 2022-11-17 [facility] 18:11:42 Medical Branch XR CERVICAL SPINE 2 VW 2022-11-17 Beena Ramirez Uni [facility] 18:11:11 Medical Branch PATIENT QUESTIONNAIRE 2022-11-17 Doctor Unassigned, No [facility] 05:01:00 Name Medical Branch MEDICATION CORRESPONDENCE 2022-11-16 Doctor Unassigned, No [facility] 05:01:00 Name Medical Branch XR CHEST 1 VW 2022-11-13 Colleen Varma [facility] 03:14:48 Medical Branch DISCLOSURE AND CONSENT, 2022-11-03 Doctor Unassigned, No [facility] MEDICAL AND SURGICAL 05:01:00 Name Medical Bra [facility] PROCEDURES URINALYSIS 2022-10-29 [facility] exas 09:11:00 Medical Branch LIPASE 2022-10-29 [facility] exas 09:08:00 Medical Branch MAGNESIUM 2022-10-29 [facility] exas 09:08:00 Medical Branch COMP. METABOLIC PANEL 2022-10-29 [facility] ([id number]) 09:08:00 Medical Branch CBC WITH DIFF 2022-10-29 [facility] exas 09:08:00 Medical Branch KEPPRA (LEVETIRACETAM) 2022-10-29 Aly Angel [facility] 09:08:00 Medical Branch CONSENT/REFUSAL FOR 2022-10-29 Doctor Unassigned, No [facility] DIAGNOSIS AND TREATMENT 07:52:18 [facility] Medical Branch EKG-12 LEAD 2022-10-28 Roscoe [facility] exas 02:24:23 Medical Branch TROPONIN I 2022-10-28 Roscoe [facility] exas 01:37:00 Medical Branch COMP. METABOLIC PANEL 2022-10-28 Pita Malhotra [facility] ([id number]) 01:37:00 Medical Branch CBC WITH DIFF 2022-10-28 [facility]coe [facility] exas 01:37:00 Medical Branch D-DIMER 2022-10-28 [facility] exas 01:37:00 Medical Branch CONSENT/REFUSAL FOR 2022-10-28 Doctor Unassigned, No [facility] DIAGNOSIS AND TREATMENT 00:34:51 Name Medical Branch MAGNESIUM 2022-10-20 [facility] xas 19:56:00 Medical Branch TROPONIN I 2022-10-20 [facility] xas 19:56:00 Medical Branch COMP. METABOLIC PANEL 2022-10-20 [facility] ([id number]) 19:56:00 Medical Branch CBC WITH DIFF 2022-10-20 [facility] xas 19:56:00 Medical Branch D-DIMER 2022-10-20 [facility] xas 19:56:00 Medical Branch N-TERMINAL PRO-BNP 2022-10-20 [facility] 19:56:00 Medical Branch CONSENT/REFUSAL FOR 2022-10-20 Doctor Unassigned, No [facility] DIAGNOSIS AND TREATMENT 19:10:[address] ABDOMEN PELVIS W 2022-10-09 Ruben Belcher [facility] CONTRAST 05:16:10 Medical Branch LIPASE 2022-10-09 Ruben Belcher [facility] 04:02:00 Medical Branch COMP. METABOLIC PANEL 2022-10-[address] [facility] ([id number]) 04:02:00 Medical Branch CBC WITH DIFF 2022-10-09 Ruben Belcher [facility] 04:02:00 Medical Branch [facility]INALYSIS 2022-10-09 [facility] 04:02[facility]00 Medical Branch NOTICE OF PRIVACY PRACTICES 2022-10-09 Doctor Unassigned, N o [facility] 03:36:47 Name Medical Branch CONSENT/REFUSAL FOR 2022-10-09 Doctor Unassigned, No [facility] DIAGNOSIS AND TREATMENT 03:34:38 Name Medical Branch REFERRAL- REQUEST/RESPONSE 2022-09-21 Doctor Unassigned, No [facility] 06:01:00 Name Medical Branch MEDICATION CORRESPONDENCE 2022-08-20 Doctor Unassigned, No [facility] 06:01:00 Name Medical Branch REFERRAL- REQUEST/RESPONSE 2022-08-04 Doctor Unassigned, No [facility] 06:01:00 Name Medical Branch MEDICATION CORRESPONDENCE 2022-08-01 Doctor Unassigned, No [facility] 06:01:00 Name Medical Branch MEDICATION CORRESPONDENCE 2022-07-30 Doctor Unassigned, No [facility] 06:01:00 Name Medical Branch MEDICATION CORRESPONDENCE 2022-07-29 Doctor Unassigned, No [facility] 06:01:00 Name Medical Branch INSURANCE CORRESPONDENCE 2022-07-21 Doctor Unassigned, No [facility] 06:01:00 Name Medical Branch MEDICATION CORRESPONDENCE 2022-07-16 Doctor Unassigned, No [facility] 06:01:00 Name Medical Branch EKG-12 LEAD 2022-07-13 Robert Gloria [facility] ex 04:05:39 Medical Branch XR CHEST 1 VW 2022-07-13 Robert Gloria [facility] ex 03:18:00 Medical Branch CONSENT/REFUSAL FOR 2022-07-13 Doctor Unassigned, No [facility] DIAGNOSIS AND TREATMENT 01:56:55 Name Medical Branch REFERRAL- REQUEST/RESPONSE 2022-06-24 Doctor Unassigned, No [facility] 06:01:00 Name Medical Branch CONSENT/REFUSAL FOR 2022-06-22 Doctor Unassigned, No [facility] DIAGNOSIS AND TREATMENT 14:45:55 Name [facility] CT THORAX WO CONTRAST 2022-06-21 Abraham [facility] 06:47:00 [facility] TROPONIN I 2022-06-21 Abraham [facility] xa 05:33:00 [facility] COMP. METABOLIC PANEL 2022-06-21 Abraham [facility] ([id number]) 05:33:00 [facility] CBC WITH DIFF 2022-06-21 Abraham [facility] xas 05:33:00 [facility] PROTHROMBIN TIME / INR 2022-06-21 [facility] 05:33:00 [facility] ACTIVATED PARTIAL THRMPLAS 2022-06-21 Abraham [facility] 05:33:00 [facility] N-TERMINAL PRO-BNP 2022-06-21 Abraham [facility] 05:33:00 [facility] XR CHEST 1 VW 2022-06-21 Abraham [facility] xa 05:00:00 [facility] BLOOD CULTURE SCREEN 2022-06-21 Abraham [facility] 04:29:00 [facility] RAPID INFLUENZA A/B 2022-06-21 [facility] 04:29:00 [facility] COVID-19 (ID NOW RAPID 2022-06-21 [facility] TESTING) 04:29:00 [facility] BLOOD CULTURE SCREEN 2022-06-21 [facility] 04:15:00 [facility] CONSENT/REFUSAL FOR 2022-06-21 Doctor Unassigned, No [facility] DIAGNOSIS AND TREATMENT 03:54:30 Name [facility] AUTHORIZATION TO RELEASE 2022-06-18 Doctor Unassigned, No [facility] PHI TO [facility] 06:01:[address] [facility] [address] CHEST PULMONARY 2022-06-16 [facility] ANGIOGRAM 23:13:02 [facility] LIPASE 2022-06-16 Ruben Belcher [facility] 22:15:00 [facility] COMP. METABOLIC PANEL 2022-06-16 Ruben Belcher [facility] ([id number]) 22:15:00 [facility] CBC WITH DIFF 2022-06-16 [place] 22:15:00 Medical Branch RAPID STREP SCREEN FOR 2022-06-16 Ruben Belcher [facility] GROUP A 22:15:00 [facility] GALV ONLY - INFLUENZA A B 2022-06-16 [facility]cher [facility] 22:15:00 [facility] COVID-19 (ID NOW RAPID 2022-06-16 Ruben Belcher [facility] TESTING) 22:15:00 [facility] LAB ONLY COVID 2022-06-16 Arnie Belcher [place] [facility] INTERPRETATION 22:15:00 [facility] CONSENT/REFUSAL FOR 2022-06-16 Doctor Unassigned, No Univer [facility] DIAGNOSIS AND TREATMENT 21:00:59 Name [facility] LACTIC ACID WHOLE BLOOD 2022-05-29 [facility] 04:08[facility]00 [facility] BLOOD CULTURE SCREEN 2022-05-29 [facility] 02:22:00 [facility] COMP. METABOLIC PANEL 2022-05-29 [facility] ([id number]) 02:22:00 [facility] CBC WITH DIFF 2022-05-29 [facility] xas 02:22:00 [facility] LACTIC ACID WHOLE BLOOD 2022-05-29 [facility] 02:21:00 [facility] URINALYSIS 2022-05-29 [facility] xas 02:05:00 [facility] XR CHEST 1 VW 2022-05-29 [facility] xas 02:03:57 [facility] NOTICE OF PRIVACY PRACTICES 2022-05-29 Doctor Unassigned, N o [facility] 01:16:26 Name [facility] CONSENT/REFUSAL FOR 2022-05-29 Doctor Unassigned, No Univer [facility] DIAGNOSIS AND TREATMENT 01:15:44 Name [facility] COMPREHENSIVE METABOLIC 2022-04-[address] [facility] PANEL 14:15:00 [facility] BILIRUBIN, DIRECT 2022-04-08 Khaderi, Junior [facility]ijaz [facility] 14:15:00 [facility] CBC W/PLT COUNT & AUTO 2022-04-08 Khaderi, Junior Aijaz [facility] DIFFERENTIAL 14:15:00 [facility] HEPATITIS A ANTIBODY, IGG 2022-04-08 Khaderi, Junior [facility]ijaz [facility] HEPATITIS B SURFACE ANTIGEN 2022-04-08 Khaderi, Junior Aijaz [facility] 14:15:00 [facility] HEPATITIS B SURFACE 2022-04-08 Khaderi, Junior Aijaz [facility] ANTIBODY 14:15:00 Medical Center HEPATITIS B CORE ANTIBODY, 2022-04-08 Khaderi, Junior Aijaz [facility] TOTAL 14:15:00 Medical Center HEPATITIS C ANTIBODY 2022-04-08 Khaderi, Junior Aijaz [facility] 14:15:00 [facility] IRON, TIBC, % SAT. (WITHOUT 2022-04-08 Willyaderi, Junior Aijaz [facility] FERRITIN) 14:15:00 Medical Center FERRITIN 2022-04-08 Willyaderi[facility] QWMBC-7-KDZVISXZUNO\\, SERUM 2022-04-08 Willyaderi, Junior Aijaz [facility] 14:15:00 [facility] CERULOPLASMIN 2022-04-08 Khaderi, [facility] ANTI-NUCLEAR ANTIBODY (FERNANDA) 2022-04-08 Willyaderi, Junior Aijaz [facility] 14:15:00 [facility] Center ACTIN (SMOOTH MUSCLE) 2022-04-08 Willyaderi, [facility]az [facility] ANTIBODY, IGG 14:15:00 Medical Center MITOCHONDRIA M2 ANTIBODY 2022-04-08 Josuéri, Junior Augustinz [facility] (IGG[facility] 14:15:00 [facility] Center IMMUNOGLOBULIN G (IGG) 2022-04-08 Willyaderi, Junior Aijaz [facility] 14:15:00 [facility] CBC W/PLT COUNT & AUTO 2022-04-08 Willyaderi, Junior Aijaz [facility] DIFFERENTIAL 14:15:00 Medical Center Plan of Care Planned Activity Planned [...] screening Medical Cent er (procedure) [code = 936748362] Future Scheduled 2018-11-[address] [facility] Test 00:00:00 virus screening Medical Cent er (procedure) [code = 407921680] Future Scheduled 2018-11-[address] [facility] Test 00:00:00 virus screening Medical Cent er (procedure) [code = 582856611] Future Scheduled 2018-11-[address] [facility] Test 00:00:00 virus screening Medical Cent er (procedure) [code = 758602877] Future Scheduled 2018-11-[address] [facility] Test 00:00:00 virus screening Medical Cent er (procedure) [code = 220873777] Future Scheduled 2005-12-28 WELL CHILD EXAM (>[address] [facility] Test 00:00:00 and <= 18 YEARS) [code = Med [facility] Center WELL CHILD EXAM (>2 YEARS and <= 18 YEARS)] Future Scheduled 2005-12-28 WELL CHILD EXAM (>[address] [facility] Test 00:00:00 and <= 18 YEARS) [code = [facility] Center WELL CHILD EXAM (>2 YEARS and <= 18 YEARS)] Future Scheduled 2005-12-28 WELL CHILD EXAM (>[address] [facility] Test 00:00:00 and <= 18 YEARS) [code = Med ica Center WELL CHILD EXAM (>2 YEARS and <= 18 YEARS)] Future Scheduled 2005-12-28 WELL CHILD EXAM (>[address] [facility] Test 00:00:00 and <= 18 YEARS) [code = Med [facility] WELL CHILD EXAM (>2 YEARS and <= 18 YEARS)] Encounters Start End Encounter Admission Attending Care Care Encounter Source Date/Time Date/Time Type Type Clinicians Facility Department ID 2023-06-07 2023-06-07 Outpatient R YANCI MICHAEL [facility] [id number] Univers 11:00:00 11:00:00 YANCI MICHAEL i ty of [facility] 2023-03-04 2023-03-04 Orders Doctor DEE 1.2.840.114 [id number] Univers 00:00:00 00:00:00 Only Unassigned, MORGAN 350.1.13.10 ity of [place] [facility] 4.2.7.2.686 [facility] [phone] [facility] [address] 2023-03-03 2023-03-03 Emergency X [facility] ERT [id number] Univers 13:42:00 20:01:00 MIL simental of [facility] 2023-03-03 2023-03-03 Emergency [facility] 1.2.840.114 [id number] Univers 13:42:00 20:01:00 Mil COLEMAN 350.1.13.10 i ty of [place] 4.2.7.2.686 [facility] [id number] [facility] [address] 2023-03-03 2023-03-03 Telephone Jose Christopher [facility] 1.2.840.114 [id number] Univers 00:00:00 00:00:00 S HEALTH 350.1.13.10 it y of [place] [id number] [facility] [address] [facility] 2023-03-03 2023-03-03 Telephone [facility] 1.2.840.114 1 [id number] Univers 00:00:00 00:00:00 [place] 350.1.13.10 ity of [facility] 4.2.[place] [phone] [facility] 059 [facility] 2023-03-03 2023-03-03 Telephone [facility] 1.2.840.114 1 [id number] Univers 00:00:00 00:00:00 [place] 350.1.13.10 ity of [place] [facility] 4.2.[place].2.[place] [id number] [facility] 059 [facility] 2023-03-02 2023-03-02 Hospital [facility] 1.2.840.[id number] [facility] 12:50:00 23:59:00 Encounter [facility] 350.1.13.10 ity of [place] 4.2.7.2.686 Morales as JIGNA?BLEA [phone] Va roemn EARNEST 809 [facility] 2023-03-02 2023-03-02 Outpatient [facility] [id number] Univers 13:00:00 13:38:29 BARRIE ity of [facility] 2023-03-02 2023-03-02 Office [facility] 1.2.840.114 [id number] Univers 13:00:00 13:15:00 Visit [facility] 350.1.13.10 it y of [place] 4.2.7.2.686 Morales as JIGNA?BLEA [phone] Va roemn EARNEST 198 [facility] 2023-02-23 2023-02-23 Surgery DARIEN Maurice 1.2.840.114 [id number] Univers 11:15:00 12:00:00 [place] MORGAN 350.1.13.10 ity of [facility] 4.2.7.2.686 Morales as [id number] [facility] [address] 2023-02-23 2023-02-23 Outpatient R CHERISE MAURICE [facility] CCA [id number] Univers 07:04:00 11:06:00 CHERISE MAURICE ity of [facility] 2023-02-23 2023-02-23 [facility] DARIEN Maurice 1.2.840.114 [id number] Univers 07:04:00 11:06:00 Encounter Michael MORA 350.1.13.10 ity of [facility] 4.2.7.2.686 Morales as [phone] [facility] [address] 2023-02-22 2023-02-22 Office Christian [facility] 1.2.840.114 [id number] Univers 10:00:00 10:30:00 Visit Yanci COLEMAN 350.1.13.10 i ty [facility] 4.2.7.2.[place] [facility] [id number] Va dical NAL 085 [facility] 2023-02-22 2023-02-22 Outpatient R YANCI MICHAEL [facility] 10 [id number] Univers 10:00:00 10:00:00 YANCI MICHAEL i ty of [facility] 2023-02-22 2023-02-22 Telephone Jose Christopher [facility] 1.2.840.114 [id number] Univers 00:00:00 00:00:00 S HEALTH 350.1.13.10 it y of [place] [id number] [facility] [address] OFFICE BUILDING 2023-02-19 2023-02-19 Orders Doctor DEE 1.2.840.114 [id number] Univers 00:00:00 00:00:00 Only Unassigned, MORGAN 350.1.13.10 ity of [place] [facility] 4.2.7.2.686 Morales as [id number] [facility] [address] 2023-02-18 2023-02-18 Telephone BOB Mcfarland 1.2.840.114 10 [id number] Univers 00:00:00 00:00:00 Robinder Y HEALTH 350.1.13.10 ity [place] [phone] [address] 2023-02-18 2023-02-18 Telephone Abr, UN[facility]ERSIT 1.2.840.114 10 [id number] Univers 00:00:00 00:00:00 Jakob HEALTH 350.1.13.10 ity of CL[place] [id number] [address] 2023-02-18 2023-02-18 Telephone [facility] 1.2.676.124 [id number] Univers 00:00:00 00:00:00 Christiano RICONELSON 350.1.13.10 ity of [place] 4.2.7.2.[place] [id number] Va dictala CHANG 059 [facility] 2023-02-18 2023-02-18 Tele[address] Abr, [facility] 1.2.840.114 10 [id number] Univers 00:00:00 00:00:00 [facility] 350.1.13.10 ity of [place] [id number] [address] 2023-02-15 2023-02-15 Outpatient R JOSE CHRISTOPHER [facility] [id number] Univers 08:30:00 08:30:00 ity of [facility] 2023-02-09 2023-02-09 [facility] 1.2.840.114 [id number] Univers 14:30:00 23:59:00 Encounter Barrie [facility] 350.1.13.10 ity of [place] 4.2.7.2.686 Morales as JIGNA?BLEA [phone] Va dical LAMINEY [address] MEDICAL OFFICE BUILDING 2023-02-09 2023-02-09 Outpatient R ROSCOE [facility] [id number] Univers 14:45:00 16:09:28 BARRIE ity of [facility] 2023-02-09 2023-02-09 Office [facility] 1.2.840.114 [id number] Univers 14:45:00 15:00:00 Visit Barrie [facility] 350.1.13.10 it y of [place] 4.2.7.2.686 Morales as JIGNA?BLEA [phone] Va oj TINOCO 198 [facility] 2023-02-09 2023-02-09 Telephone Christian [facility] 1.2.649.057 [id number] Univers 00:00:00 00:00:00 Nikiaparnaaditi COLEMAN 350.1.13.10 i ty of [place] 4.2.7.2.686 [place] [facility] [phone] Va oj CHANG 085 [facility] 2023-02-01 2023-02-01 Outpatient R ROSCOE [facility] [id number] Univers 14:10:00 23:59:00 BARRIE ity [facility] 2023-02-01 2023-02-01 Office [facility] 1.2.840.114 [id number] Univers 13:45:00 14:00:00 Visit [facility] 350.1.13.10 it y of [place] 4.2.7.2.686 Morales as JIGNA?BLEA [phone] Va oj TIN[place] [address] [place] [address] 2023-01-31 2023-02-01 Emergency X VASMI, [facility] ERT [id number] Univers 22:28:00 01:54:00 [facility] 2023-01-31 2023-02-01 [facility] 1.2.522.224 [id number] Univers 22:28:00 01:54:00 Arsalan COLMEAN 350.1.13.10 i ty of [place] 4.2.7.2.686 [place] [id number] [facility] [address] 2023-02-01 2023-02-01 Telephone DARIEN Maurice 1.2.840.114 1 [id number] Univers 00:00:00 00:00:00 Michael MORA 350.1.13.10 ity of [facility] 4.2.7.2.686 Morales as [id number] [facility] [address] 2023-01-29 2023-01-29 Outpatient R CHERISE MAURICE [facility] [id number] Univers 09:49:06 23:59:00 CHEIRSE MAURICE ity [facility] 2023-01-28 2023-01-28 Outpatient R CHERISE MAURICE [facility] [id number] Univers 15:20:00 15:30:35 CHERISE MAURICE ity [facility] 2023-01-28 2023-01-28 Office [facility] 1.2.840.[id number] [facility] 15:20:00 15:30:35 Visit Michael [facility] 350.1.13.10 ity of [place].2.7.2.[place] [id number] [facility] 059 [facility] 2023-01-28 2023-01-28 Telephone Christian [facility] 1.2.478.178 [id number] [id number] Univers 00:00:00 00:00:00 [facility] [place] 350.1.13.10 i ty of [place] 4.2.7.2.[place] [phone] [facility] 085 [facility] 2023-01-28 2023-01-28 Refill Nichol [facility] 1.2.840.114 [id number] Univers 00:00:00 00:00:00 [facility] 350.1.13.10 ity of [place].2.7.2.[place] [phone] [facility] [address] OFFICE BUILDING 2023-01-28 2023-01-28 Telephone Christian [facility] 1.2.001.493 [id number] Univers 00:00:00 00:00:00 [facility] [place] 350.1.13.10 i ty of [place] 4.2.7.2.[place] [id number] [place] [id number] [facility] 2023-01-28 2023-01-28 Orders Doctor DEE 1.2.840.114 [id number] Univers 00:00:00 00:00:00 Only Unassigned, MORGAN 350.1.13.10 ity of [place] [facility] 4.2.7.2.686 Morales as [phone] [place] [address] [address] 2023-01-20 2023-01-21 Emergency X SACHIN CARVAJAL [facility] ERT [id number] Univers 21:49:00 00:40:00 ity of [facility] 2023-01-20 2023-01-21 Emergency Sachin Carvajal [facility] 1.2.840.114 [id number] Univers 21:49:00 00:40:00 T JARED 350.1.13.10 i ty of [facility] 4.2.7.2.[place] [id number] [facility] [address] 2023-01-18 2023-01-18 Outpatient R [facility] SOR [id number] Univers 09:13:00 13:06:00 HANNAH itliliana of [facility] 2023-01-18 2023-01-18 Hospital [facility] 1.2.840.114 [id number] Univers 09:13:00 13:06:00 Encounter Hannah COLEMAN 350.1.13.10 ity of [facility] 4.2.7.2.[place] SURGICAL [phone] [facility] [address] 2023-01-18 2023-01-18 Surgery [facility] 1.2.285.239 [id number] [id number] Univers 10:50:00 12:25:00 Hannah COLEMAN 350.1.13.10 i ty [facility] 4.2.7.2.[place]GICAL [id number] [facility] [address] 2023-01-18 2023-01-18 Orders Doctor DEE 1.2.840.114 [id number] Univers 00:00:00 00:00:00 Only Unassigned, MORGAN 350.1.13.10 ity of [place] [facility] 4.2.7.2.686 Morales as [id number] [facility] [address] 2023-01-15 2023-01-15 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 Grisel, [facility] [employer] [facility] 1.2.8 40.114 [id number] Univers 08:30:00 08:45:00 Visit Sarbjit Kee 350.1.13.10 ity of [place] 4.2.7.2.686 [facility] [id number] Va oj CHANG 353 [facility] 2023-01-15 2023-01-15 Outpatient [facility] [id number] Univers 08:30:00 08:30:00 HANNAHKATHARINE simental [facility] 2023-01-15 2023-01-15 Orders Doctor DEE 1.2.840.114 [id number] Univers 00:00:00 00:00:00 Only Unassigned, MORGAN 350.1.13.10 ity of [place] [facility] 4.2.7.2.686 Morales as [id number] [address] 2023-01-14 2023-01-14 [place] [facility] 1.2.430.346 [id number] Univers 00:00:00 00:00:00 Barrie S HEALTH 350.1.13.10 it y of [facility] 4.2.7.2.686 Morales as JIGNA?BLEA [id number] Va oj TINOCO 198 [facility] 2023-01-13 2023-01-13 Office [facility] 1.2.678.004 [id number] Univers 13:00:00 13:15:00 Visit [facility] HEALTH 350.1.13.10 it y of [facility] 4.2.7.2.686 Morales as JIGNA?BLEA [id number] Va oj TINOCO 198 [facility] 2023-01-13 2023-01-13 Outpatient [facility] [id number] Univers 13:00:00 13:00:00 HANNAH beckwithliliana [facility] 2023-01-13 2023-01-13 Orders Doctor DEE 1.2.840.114 [id number] Univers 00:00:00 00:00:00 Only Unassigned, MORGAN 350.1.13.10 ity of [place] [facility] 4.2.7.2.686 Morales as [phone] [address] 2023-01-08 2023-01-08 Emergency X MEET [facility] ERT [id number] Univers 14:55:00 17:08:00 SURY hola [facility] 2023-01-08 2023-01-08 Emergency [facility] 1.2.992.971 [id number] Univers 14:55:00 17:08:00 Sury S [place] 350.1.13.10 i ty of [place] 4.2.7.2.[place] [id number] [facility] [address] 2023-01-08 2023-01-08 Orders Doctor DEE 1.2.840.114 [id number] Univers 00:00:00 00:00:00 Only Unassigned, MORGAN 350.1.13.10 ity of [place] [facility] 4.2.7.2.686 Morales as [id number] [facility] [address] 2023-01-08 2023-01-08 Telephone [facility] 1.2.426.702 [id number] Univers 00:00:00 00:00:00 Yanci COLEMAN 350.1.13.10 i ty of [place] 4.2.[place].2.[place] [id number] Va dical NAL 085 [facility] 2023-01-05 2023-01-05 Telephone [facility] 1.2.273.730 [id number] Univers 00:00:00 00:00:00 Yanci COLEMAN 350.1.13.10 i ty of [place] 4.2.7.2.[place] [id number] Va dical NAL 085 [facility] 2022-12-28 2022-12-28 Telephone [facility] 1.2.081.936 [id number] Univers 00:00:00 00:00:00 Christiano COLEMAN 350.1.13.10 ity of [place] 4.2.7.2.[place] [id number] Va dical NAL 059 [facility] 2022-12-21 2022-12-21 Outpatient R JOSE CHRISTOPHER [facility] [id number] Univers 09:20:00 09:33:52 ity of [facility] 2022-12-21 2022-12-21 Office Jose Christopher [facility] 1.2.840.114 10 [id number] Univers 09:20:00 09:33:52 Visit S HEALTH 350.1.13.10 it y of [place].2.[place] [phone] [facility] [address] OFFICE BUILDING 2022-12-16 2022-12-16 Patient Doctor [facility] 1.2.840.114 [id number] Univers 00:00:00 00:00:00 Secure Msg Unassigned, [place] 350.1.13.10 ity of [place] 4.2.7.2.[place] [phone] Va dicmn NAL 9 [facility] 2022-12-15 2022-12-15 Inpatient R JOSE CHRISTOPHER [facility] TYRONE [id number] Univers 08:30:00 08:30:00 ity of [facility] 2022-12-14 2022-12-14 Telephone Christian [facility] 1.2.174.576 [id number] Univers 00:00:00 00:00:00 Shiwan JARED 350.1.13.10 i ty of [facility] 4.2.7.2.[place] [id number] [address] 2022-12-11 2022-12-11 Outpatient R CEM [facility] [id number] Univers 16:00:00 16:00:00 CHRISTIANO beckwithy o f [facility] 2022-12-10 2022-12-10 Telephone [facility] 1.2.487.853 [id number] Univers 00:00:00 00:00:00 Christiano COLEMAN 350.1.13.10 ity of [facility] 4.2.7.2.[place] [id number] [address] 2022-12-10 2022-12-10 Orders Doctor DEE 1.2.840.114 [id number] Univers 00:00:00 00:00:00 Only Unassigned, MORGAN 350.1.13.10 ity of [place] [facility] 4.2.7.2.686 [place]ales as [id number] [place] [address] [place] 2022-12-08 2022-12-08 Orders Doctor DEE 1.2.840.114 [id number] Univers 00:00:00 00:00:00 Only Unassigned, MORGAN 350.1.13.10 ity of [place] [facility] 4.2.7.2.686 Morales as [id number] [facility] [address] 2022-12-06 2022-12-07 Emergency X [facility] ERT [id number] Univers 21:57:00 00:35:00 TYRON itliliana of [facility] 2022-12-06 2022-12-07 Emergency [facility] 1.2.095.095 [id number] Univers 21:57:00 00:35:00 Tyron JARED 350.1.13.10 i ty [place].2.7.2.[place] [id number] [facility] [address] 2022-12-07 2022-12-07 Telephone [facility] 1.2.937.517 [id number] Univers 00:00:00 00:00:00 Yanci COLEMAN 350.1.13.10 i ty of [place] 4.2.7.2.[place] [id number] Va dicmn NAL 085 [facility] 2022-12-04 2022-12-04 Telephone [facility] 1.2.909.632 [id number] Univers 00:00:00 00:00:00 Christiano COLEMAN 350.1.13.10 ity of [place].2.7.2.[place] [id number] Va dicmn NAL 059 [facility] 2022-12-04 2022-12-04 Telephone [facility] 1.2.272.042 [id number] Univers 00:00:00 00:00:00 Christiano COLEMAN 350.1.13.10 ity of [place] 4.[place].2.[place] [id number] Va dicmn NAL 059 [facility] 2022-12-03 2022-12-03 [facility] 1.2.840.114 1 [id number] Univers 14:07:58 23:59:00 Encounter , Pankaj HAAS 350.1.13.10 ity of [place]2.7.2.[place] CENTER AT [id number] Va dictala BRASHERY 809 [facility] 2022-12-03 2022-12-03 Outpatient R GERRY [facility] [id number] Univers 12:45:00 14:46:50 , PANKAJ ity [facility] 2022-12-03 2022-12-03 Office Frandysamuel [facility] 1.2.840.114 10 [id number] Univers 12:45:00 14:46:50 Visit , Pankaj SPECIALTY 350.1.13.10 ity of [facility] 4.2.7.2.[place] CENTER AT [phone] Va oj SHEETS 198 [facility] 2022-12-02 2022-12-02 Outpatient R [facility] [id number] Univers 07:36:17 23:59:00 CHRISTIANO itliliana o f [facility] 2022-11-26 2022-11-26 Outpatient R [facility] [id number] Univers 13:00:00 13:22:38 ANJALI simental [facility] 2022-11-26 2022-11-26 Office BOB Wisdom 1.2.840.114 10 [id number] Univers 13:00:00 13:22:38 Visit Anjali Y 350.1.13.10 it y of [facility] 4.2.7.2.686 [facility] [id number] [facility] [address] 2022-11-26 2022-11-26 Ancillary Wendy Rosaroi [facility]ERS[facility] 1.2.84 0.114 [id number] Univers 11:15:00 11:17:49 Visit Dominick [employer] Y 350.1 .13.10 ity of Fadumo Ortiz [employer] 4.2.7.2.686 [place] [facility] [phone] [facility] BLDG. [address] 2022-11-23 2022-11-23 Outpatient R LORENZO [facility] [id number] Univers 13:00:00 13:49:08 HANNAH simental [facility] 2022-11-23 2022-11-23 Ancillary Nano Cook [facility] 1 .2.840.114 [id number] Univers 13:00:00 13:49:08 Visit Hannah [place] 350.1.13.10 ity of [place].7.2.[place] [id number] Va dical NAL 179 [facility] 2022-11-20 2022-11-20 Telephone [facility] 1.2.939.925 [id number] Univers 00:00:00 00:00:00 Nikiaparnaaditi CO[place] 350.1.13.10 i ty [place] [phone] [place]ical NAL 085 [facility] 2022-11-19 2022-11-19 Outpatient R [facility] [id number] Univers 11:20:00 11:34:12 CHRISTIANO simental o f [facility] 2022-11-19 2022-11-19 Office [facility] 1.2.840.114 [id number] Univers 11:20:00 11:34:12 Visit Christiano COLEMAN 350.1.13.10 it[place] [phone] [place]ical NAL 059 [facility] 2022-11-18 2022-11-18 Orders Doctor DEE 1.2.840.114 [id number] Univers 00:00:00 00:00:00 Only Unassigned, MORGAN 350.1.13.10 ity of [place] [facility] 4.2.7.2.686 [place] as [phone] [address] 2022-11-17 2022-11-17 Hospital [facility] 1.2.446.198 [id number] Univers 14:11:57 23:59:00 Encounter Beena SPECIALTY 350.1.13.10 ity of [facility] [place] [phone] [place] dical VICTORY 809 [facility] 2022-11-17 2022-11-17 Office [facility] 1.2.840.114 [id number] Univers 13:20:00 14:40:18 Visit Beena SPECIALTY 350.1.13.10 ity of [facility] [place] [phone] Me dical VICTORY 198 [facility] 2022-11-17 2022-11-17 [facility] 1.2.273.866 [id number] Univers 12:58:08 14:10:00 Encounter Beena SPECIALTY 350.1.13.10 ity of [facility] [place] [phone] Me dical VICTORY 809 [facility] 2022-11-17 2022-11-17 [facility] 1.2.157.650 [id number] Univers 12:58:02 14:10:00 Encounter Beena SPECIALTY 350.1.13.10 ity of [facility] [place] [phone] Me dical VICTORY 809 [facility] 2022-11-17 2022-11-17 Outpatient R [facility] [id number] Univers 12:57:56 12:57:56 BEENA ity of [facility] 2022-11-17 2022-11-17 [facility] 1.2.369.551 [id number] Univers 12:57:56 12:57:56 Encounter Beena SPECIALTY 350.1.13.10 ity of [facility] [place] [phone] Me dical VICTORY 809 [facility] 2022-11-16 2022-11-16 Office Christian [facility] 1.2.840.114 [id number] Univers 09:00:00 09:30:00 Visit Yanci CO[place] 350.1.13.10 i ty [facility] [place] [phone] Me dical NAL 085 [facility] 2022-11-16 2022-11-16 Outpatient R YANCI MICHAEL [facility] 10 [id number] Univers 09:00:00 09:00:00 YANCI MICHAEL i ty of [facility] 2022-11-16 2022-11-16 Orders Doctor PRICE 1.2.840.114 [id number] Univers 00:00:00 00:00:00 Only Unassigned, MORGAN 350.1.13.10 ity of [facility] 4.2.7.2.686 Morales as [id number] [facility] [address] 2022-11-12 2022-11-13 Emergency X Colleen VARMA [facility] ERT [id number] 0194 Univers 21:44:00 00:14:00 ity of [facility] 2022-11-12 2022-11-13 Emergency Colleen Varma [facility] 1.2.840.114 10 [id number] Univers 21:44:00 00:14:00 Karenfarooq GÓMEZNELSON 350.1.13.10 i ty of [place] 558.0610059 [facility] [address] 2022-11-03 2022-11-03 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 [facility] UNIVERSIT 1.2.840.114 1 [id number] Univers 11:45:00 12:00:00 Visit Parrish Rosenberg [facility] 350.1.13.10 ity of [place] 345.3356914 [facility] [address] 2022-11-03 2022-11-03 Office Jakob Mcfarland 1.2.840. 114 [id number] Univers 10:00:00 10:30:00 Visit Sheng Vasquez [facility] 350.1.13. 10 ity [place] 384.4162350 [facility] [address] 2022-11-03 2022-11-03 Outpatient R CHRISTINA [facility] [id number] Univers 10:00:00 10:00:00 SHENG simental [facility] 2022-11-03 2022-11-03 Telephone BOB Mcfarland 1.2.840.114 10 [id number] Univers 00:00:00 00:00:00 Jakob [facility] 350.1.13.10 ity [place] [id number] [facility] [address] 2022-11-03 2022-11-03 Orders Doctor PRICE 1.2.840.114 [id number] Univers 00:00:00 00:00:00 Only UnassignedMORGAN 350.1.13.10 ity of [facility] 4.2.7.2.686 [place] as 160.0157549 [facility] [address] 2022-11-02 2022-11-02 Telephone Christian [facility] 1.2.541.313 7783 [id number] Univers 00:00:00 00:00:00 Yanci RICONELSON 350.1.13.10 i ty of [place] [id number] [facility]ical NAL [address] [facility] 2022-10-29 2022-10-29 Emergency X ALY ANGEL [facility] ERT [id number] Univers 02:59:00 07:34:00 ALY ANGEL ity of [facility] 2022-10-29 2022-10-29 Emergency Dalmedo, TRAUMA 1.2.840.114 102 [id number] Univers 02:59:00 07:34:00 [facility] 350.1.13.10 it y [place] [id number] [facility] [address] 2022-10-29 2022-10-29 Nurse Harmanl DEE 1.2.840.114 [id number] Univers 00:00:00 00:00:00 Triage MORGAN Strauss 350.1.13.[address] [facility] 4.2.7.2.686 [place] 835.6654152 [facility] [address] 2022-10-28 2022-10-28 Patient Doctor DEE 1.2.840.114 [id number] Univers 00:00:00 00:00:00 Secure Msg UnassMORGAN mayo 350.1.13.10 ity of [place] [facility] 4.2.7.2.686 [place] as 402.3204793 [facility] [address] 2022-10-28 2022-10-28 Telephone BOB Mcfarland 1.2.840.114 10 [id number] Univers 00:00:00 00:00:00 [facility] 350.1.13.10 ity of [place] 150.2150864 [facility] [address] 2022-10-27 2022-10-27 Emergency X [facility] [id number] 75 Univers 19:47:00 21:40:00 PITA simental [facility] 2022-10-27 2022-10-27 Emergency [facility] 1.2.681.835 [id number] 79870 Univers 19:47:00 21:40:00 Pita COLEMAN 350.1.13.10 ity of [place] 635.7572480 [facility] [address] 2022-10-25 2022-10-25 Telephone ZachariahDARIEN hendrix 1.2.302.203 7660 87989 Univers 00:00:00 00:00:00 Jakob MORA 350.1.13.10 i ty of [facility] 4.2.7.2.686 [place] as 522.7217619 [facility] [address] 2022-10-21 2022-10-21 Telephone [facility] 1.2.216.734 7160 88075 Univers 00:00:00 00:00:00 Yanci COLEMAN 350.1.13.10 i ty of [place] [id number] Va dical [facility] 2022-10-20 2022-10-20 Emergency X [facility] ERT [id number] Univers 14:26:00 17:47:00 TYRON tangliliana [facility] 2022-10-20 2022-10-20 Emergency [facility] 1.2.040.333 7361 [id number] Univers 14:26:00 17:47:00 Tyron COLEMAN 350.1.13.10 i ty of [place].2.[place] 540.3767327 [facility] [address] 2022-10-20 2022-10-20 Orders Doctor PRICE 1.2.840.114 [id number] Univers 00:00:00 00:00:00 Only Unassigned, MROGAN 350.1.13.10 ity of [place] [facility] 4.2.7.2.686 [place] as 797.1095394 [facility] [address] 2022-10-12 2022-10-12 Nurse DEE Barth 1.2.840.114 [id number] Univers 00:00:00 00:00:00 Triage Jose Carlos DECKERY 350.1.13.10 it y of [facility] 4.2.7.2.686 [place] as [id number] [address] 2022-10-11 2022-10-11 Patient Doctor DEE 1.2.840.114 [id number] Univers 00:00:00 00:00:00 Secure Msg Unassigned, MORGAN 350.1.13.10 ity of [place] [facility] 4.2.7.2.686 [place] as [id number] [address] 2022-10-08 2022-10-09 Emergency X [facility] ERT [id number] Univers 22:48:00 01:33:00 [facility] ity [facility] 2022-10-08 2022-10-09 Emergency [facility] 1.2.840.114 10 [id number] Univers 22:48:00 01:33:00 Ruben COLEMAN 350.1.13.10 ity of [place].2.[place] [id number] [address] 2022-10-09 2022-10-09 Telephone Abrol, UNIVERSIT 1.2.840.114 10 [id number] Univers 00:00:00 00:00:00 [facility] 350.1.13.10 ity [place] [id number] [address] 2022-10-08 2022-10-08 Telephone Abrol, UNIVERSIT 1.2.840.114 10 [id number] Univers 00:00:00 00:00:00 Robinder [facility] 350.1.13.10 ity [place] [id number] [address] 2022-10-07 2022-10-07 Telephone Abrol, UNIVERSIT 1.2.840.114 10 [id number] Univers 00:00:00 00:00:00 Robinder HEALTH 350.1.13.10 ity of [place] [id number] [facility] [address] 2022-09-30 2022-09-30 Telephone [facility] 1.2.469.437 2565 [id number] Univers 00:00:00 00:00:00 Shiwan [place] 350.1.13.10 i ty of [facility] [place] [id number] [address] 2022-09-24 2022-09-24 Outpatient R GERRY [facility] 038 [id number] Univers 15:30:00 15:30:00 , PANKAJ itliliana [facility] 2022-09-21 2022-09-21 Orders Doctor DEE 1.2.840.114 [id number] Univers 00:00:00 00:00:00 Only Unassigned, MORGAN 350.1.13.10 ity of [facility] 4.2.7.2.686 [place] as 799.4965859 [address] 2022-09-15 2022-09-[address] [facility] 1.2.840. 114 [id number] Univers 07:30:00 08:00:00 Visit Sheng Vasquez [facility] 350.1.13. 10 ity of [facility] 4[place].2.[place] [id number] [address] 2022-09-15 2022-09-15 Outpatient R CHRISTINA [facility] [id number] Univers 07:30:00 07:30:00 SHENG simental [facility] 2022-08-26 2022-08-26 Telephone [facility] 1.2.673.772 7749 [id number] Univers 00:00:00 00:00:00 Shiwan [place] 350.1.13.10 i ty of [place] 329.3425685 [address] 2022-08-21 2022-08-21 Telephone [facility] 1.2.627.379 0992 [id number] Univers 00:00:00 00:00:00 Shiwan [place] 350.1.13.10 i ty of [place] 262.3799061 [address] 2022-08-20 2022-08-20 Orders Doctor DEE 1.2.840.114 [id number] Univers 00:00:00 00:00:00 Only Unassigned, MORGAN 350.1.13.10 ity of [facility] 4.2.7.2.686 [place] 776.6661197 [place] [address] 2022-08-19 2022-08-19 Outpatient R NICHOL [facility] [id number] Univers 09:00:00 09:54:18 [facility] ity of [facility] 2022-08-19 2022-08-19 Office [facility] 1.2.840.114 [id number] Univers 09:00:00 09:54:18 Visit [facility] 350.1.13.10 ity of [place] [id number] [place] [address] [place] OFFICE BUILDING 2022-08-18 2022-08-18 Outpatient R YANCI MICHAEL [facility] 10 [id number] Univers 10:30:00 11:01:57 YANCI MICHAEL i ty of [facility] 2022-08-18 2022-08-18 Office [facility] 1.2.840.114 [id number] Univers 10:30:00 11:01:57 Visit Yanci COLEMAN 350.1.13.10 i ty of [place] [id number] [address] 2022-08-04 2022-08-04 Telephone [facility] 1.2.556.955 [id number] 5672 Univers 00:00:00 00:00:00 Yanci COLEMAN 350.1.13.10 i ty of [place] [id number] [place] dicmn NAL [address] [place] [address] 2022-08-04 2022-08-04 Orders Doctor PRICE 1.2.840.114 [id number] Univers 00:00:00 00:00:00 Only Unassigned, MORGAN 350.1.13.10 ity of [facility] 4.2.7.2.686 [place] as 454.2304639 [address] 2022-08-01 2022-08-01 Orders Doctor DEE 1.2.840.114 [id number] 093 Univers 00:00:00 00:00:00 Only Unassigned, MORGAN 350.1.13.10 ity of [facility] 4.2.7.2.686 [place] as 251.5548889 [address] 2022-07-30 2022-07-30 Orders Doctor DEE 1.2.840.114 [id number] Univers 00:00:00 00:00:00 Only Unassigned, MORGAN 350.1.13.10 ity of [facility] 4.2.7.2.686 [place] as [id number] [address] 2022-07-29 2022-07-29 Telephone [facility] 1.2.544.992 [id number] 7439 Univers 00:00:00 00:00:00 Shiaparnan [place] 350.1.13.10 i ty of [place] [id number] [address] 2022-07-29 2022-07-29 Orders Doctor PRICE 1.2.840.114 [id number] Univers 00:00:00 00:00:00 Only Unassigned, MORGAN 350.1.13.10 ity of [facility] 4.2.7.2.686 [place] as [id number] [address] 2022-07-28 2022-07-28 Telephone [facility] 1.2.048.873 [id number] 5200 Univers 00:00:00 00:00:00 Shiwan [place] 350.1.13.10 i ty of [place] [id number] [place] dicmn NAL [address] [place] [address] 2022-07-21 2022-07-21 Orders Doctor PRICE 1.2.840.114 [id number] 75 Univers 00:00:00 00:00:00 Only Unassigned, MORGAN 350.1.13.10 ity of [facility] 4.2.7.2.686 [place] as 801.5081511 [facility] [address] 2022-07-16 2022-07-16 Adriana Mac [facility] 1.2.840.114 11579 950 Univers 00:00:00 00:00:00 Steve SPECIALTY 350.1.13.10 ity of [facility] [place]2.7.2.[place] 384.4461540 [facility] [address] 2022-07-16 2022-07-16 Telephone Christian [facility] 1.2.131.139 [id number] 5897 Univers 00:00:00 00:00:00 [facility] 350.1.13.10 i ty [place] [id number] [address] 2022-07-16 2022-07-16 Orders Doctor DEE 1.2.840.114 [id number] Univers 00:00:00 00:00:00 Only Unassigned, MORGAN 350.1.13.10 [facility] 4.2.7.2.686 [place] 931.7903662 [facility] [address] 2022-07-12 2022-07-12 Emergency X [facility] ERT [id number] Univers 20:10:00 22:24:00 ROBERT ity of [facility] 2022-07-12 2022-07-12 Emergency [facility] 1.2.634.817 [id number] 2248 Univers 20:10:00 22:24:00 Robert COLEMAN 350.1.13.10 ity of [place].2.[place] 172.3652638 [facility] [address] 2022-07-07 2022-07-07 Telephone [facility] 1.2.384.288 3121 [id number] Univers 00:00:00 00:00:00 Yanci COLEMAN 350.1.13.10 i ty of [place] [id number] [address] 2022-06-29 2022-06-29 Outpatient RAZA CRUZ SLE [id number] [facility]H 00:00:00 00:00:00 JUNIOR 2022-06-24 2022-06-24 Orders Doctor DEE 1.2.840.114 [id number] Univers 00:00:00 00:00:00 Only Unassigned, MORGAN 350.1.13.10 ity of [place] [facility] 4.2.7.2.686 [place] as [id number] [address] 2022-06-22 2022-06-22 Outpatient R YANCI MICHAEL [facility] 10 [id number] Univers 09:00:00 09:40:28 YANCI MICHAEL i ty of [facility] 2022-06-22 2022-06-22 Office [facility] 1.2.840.114 [id number] Univers 09:00:00 09:40:28 Visit Yanci COLEMAN 350.1.13.10 i ty of [place]2.[place] [facility] 232.8906930 [address] 2022-06-22 2022-06-22 Orders Doctor PRICE 1.2.840.114 [id number] Univers 00:00:00 00:00:00 Only Unassigned, MORGAN 350.1.13.10 ity of [place] [facility] 4.2.7.2.686 [place] as [id number] [address] 2022-06-20 2022-06-21 Emergency X [facility] ERT [id number] Univers 22:02:00 04:05:00 MEGHAN beckwithy of [facility] 2022-06-20 2022-06-21 Emergency [facility] 1.2.497.203 [id number] Univers 22:02:00 04:05:00 Meghan COLEMAN 350.1.13.10 i ty of [place] [id number] [address] 2022-06-18 2022-06-18 Orders Doctor PRICE 1.2.840.114 [id number] Univers 00:00:00 00:00:00 Only Unassigned, MORGAN 350.1.13.10 ity of [place] [facility] 4.2.7.2.686 [place]ales [id number] [facility] [address] 2022-06-16 2022-06-16 Emergency X YE, [facility] ERT [id number] Univers 15:04:00 22:47:00 FOLUSHO ity of [facility] 2022-06-16 2022-06-16 Emergency Ibikunle, TRAUMA 1.2.840.114 98 [id number] Univers 15:04:00 22:47:00 [facility] 350.1.13.10 ity 4.2.7.2.686 [facility] [id number] [facility] [address] 2022-05-28 2022-05-29 Emergency X KERLINEANTHONY, [facility] ERT [id number] Univers 19:34:00 02:25:00 ROBERT ity [facility] 2022-05-28 2022-05-29 Emergency Tyron Nuñez [facility] 1.2.840. 114 [id number] Univers 19:34:00 02:25:00 Robert Gloria 350.1.13.10 ity [facility] [place]2.7.2.[place] 650.0059190 [facility] [address] 2022-04-08 2022-04-08 Office KAREN Leahy [facility] [id number] 13:00:00 14:00:00 Visit [facility] 2022-04-08 2022-04-08 Office Alondra [facility] [id number] 13:00:00 14:00:00 Visit [facility] 2022-04-08 2022-04-08 Outpatient RAZA CRUZ [facility] [id number] SLE 11:58:43 11:58:43 [facility] 2020-06-11 2020-06-11 Telephone Jethro [facility] 1.2.252.697 [id number] [id number] 00:00:00 00:00:00 Felix HAAS 350.1.13.10 [facility] 4.2.7.2.686 [place] [id number] [facility] 2020-06-11 2020-06-11 Telephone [facility] 1.2.547.074 [id number] 4860 Univers 00:00:00 00:00:00 Felix SPECIALTY 350.1.13.10 ity of [facility] 4.2.7.2.686 Morales as [place] 577.3582243 [facility] [address] 2020-03-13 2020-03-13 Refill [facility] 1.2.840.114 [id number] 91 00:00:00 00:00:00 Felix SPECIALTY 350.1.13.10 [facility] 4.2.7.2.686 [place] 113.4630140 401 2020-03-13 2020-03-13 [facility] 1.2.840.114 [id number] 91 Univers 00:00:00 00:00:00 Felix SPECIALTY 350.1.13.10 ity of [facility] 4.2.7.2.686 [place] [id number] [address] 2020-03-11 2020-03-11 [facility] 1.2.840.114 [id number] 30 00:00:00 00:00:00 Felix SPECIALTY 350.1.13.10 [place] 4.2.7.2.686 [place] [id number] 401 2020-03-11 2020-03-11 Telephone [facility] 1.2.096.161 [id number] 7886 00:00:00 00:00:00 Felix SPECIALTY 350.1.13.10 [facility] 4.2.7.2.686 [place] 387.4667140 401 2020-03-11 2020-03-11 [facility] 1.2.840.114 [id number] 30 Univers 00:00:00 00:00:00 Felix SPECIALTY 350.1.13.10 ity of [facility] 4.2.7.2.686 [place] [id number] [address] 2020-03-11 2020-03-11 Telephone [facility] 1.2.745.960 6278 7886 Univers 00:00:00 00:00:00 Felix SPECIALTY 350.1.13.10 ity of [facility] 4.2.7.2.686 [place] 212.8402852 [address] 2020-03-06 2020-03-06 Telephone [facility] 1.2.644.599 5525 4433 00:00:00 00:00:00 Felix SPECIALTY 350.1.13.10 [place] 4.2.7.2.686 [place] 156.8660963 401 2020-03-06 2020-03-06 Telephone [facility] 1.2.740.[address] [facility] 00:00:00 00:00:00 Felix SPECIALTY 350.1.13.10 ity of [facility] 4.2.7.2.686 [place] [id number] [address] 2020-03-04 2020-03-04 Refill [facility] 1.2.840.114 [id number] 00:00:00 00:00:00 Felix SPECIALTY 350.1.13.10 [facility] 4.2.7.2.686 [place] 184.4319428 401 2020-03-04 2020-03-04 Refill [facility] 1.2.840.[id number] [facility] 00:00:00 00:00:00 Felix SPECIALTY 350.1.13.10 ity of [facility] 4.2.7.2.686 [place] [id number] [address] 2019-11-07 2019-11-07 Refill [facility] 1.2.840.114 [id number] 83 00:00:00 00:00:00 Felix SPECIALTY 350.1.13.10 [facility] 4.2.7.2.686 [place] [id number] 401 2019-11-07 2019-11-07 Refill [facility] 1.2.840.114 [id number] 83 Univers 00:00:00 00:00:00 Felix SPECIALTY 350.1.13.10 ity of [facility] 4.2.7.2.686 [place] [id number] [address] 2019-10-23 2019-10-23 Telephone [facility] 1.2.695.972 [id number] 7946 00:00:00 00:00:00 Felix SPECIALTY 350.1.13.10 [facility] 4.2.7.2.686 [place] [id number] 401 2019-10-23 2019-10-23 Telephone [facility] 1.2.027.280 [id number] 7946 Univers 00:00:00 00:00:00 Felix SPECIALTY 350.1.13.10 ity of [facility] 4.2.7.2.686 [place] [id number] [address] 2019-10-22 2019-10-22 Refill [facility] 1.2.840.114 [id number] 87 00:00:00 00:00:00 Felix SPECIALTY 350.1.13.10 [facility] 4.2.7.2.686 [place] 619.0424497 [facility] 2019-10-22 2019-10-22 Refill [facility] 1.2.840.114 [id number] 87 Univers 00:00:00 00:00:00 Felix SPECIALTY 350.1.13.10 ity of [facility] 4.2.7.2.686 [place] [id number] [address] 2019-09-06 2019-09-06 Telephone [facility] 1.2.019.833 [id number] 8654 00:00:00 00:00:00 Felix SPECIALTY 350.1.13.10 [place] 4.2.7.2.686 [place] [id number] [facility] 2019-09-06 2019-09-06 Telephone [facility] 1.2.749.660 9064 8654 Univers 00:00:00 00:00:00 Felix SPECIALTY 350.1.13.10 ity of [facility] 4.2.7.2.686 [place] [id number] [address] 2019-08-14 2019-08-14 Telephone [facility] 1.2.526.317 4042 3924 00:00:00 00:00:00 Felix SPECIALTY 350.1.13.10 [place] 4.2.7.2.686 [place] [id number] [facility] 2019-08-14 2019-08-14 Telephone [facility] 1.2.219.842 2268 3924 Univers 00:00:00 00:00:00 Felix SPECIALTY 350.1.13.10 ity of [facility] 4.2.7.2.686 [place] [id number] [address] 2019-08-03 2019-08-03 Telephone [facility] 1.2.264.797 4408 8343 00:00:00 00:00:00 Felix SPECIALTY 350.1.13.10 [facility] 4.2.7.2.686 [place] [id number] 401 2019-08-03 2019-08-03 Telephone [facility] 1.2.987.846 5543 8343 Univers 00:00:00 00:00:00 Felix SPECIALTY 350.1.13.10 ity of [facility] 4.2.7.2.686 [place]ales as [place] [id number] [facility] [address] 2019-07-31 2019-07-31 Telephone [facility] 1.2.484.338 1708 1156 00:00:00 00:00:00 Felix SPECIALTY 350.1.13.10 [facility] 4.2.7.2.686 [place] [id number] 401 2019-07-31 2019-07-31 [place] [facility] 1.2.168.[address] [facility] 00:00:00 00:00:00 Felix SPECIALTY 350.1.13.10 ity of [facility] 4.2.7.2.686 [place]ales as [place] 814.4987655 [facility] [address] 2019-03-27 2019-03-27 Telephone [facility] 1.2.840.114 713 [id number] 00:00:00 00:00:00 Steve SPECIALTY 350.1.13.10 [facility] 4.2.7.2.686 [place] [id number] 147 2019-03-27 2019-03-27 [facility] 1.2.840.114 [id number] 88 00:00:00 00:00:00 Felix SPECIALTY 350.1.13.10 [facility] 4.2.7.2.686 [place] 398.5812380 401 2019-03-27 2019-03-27 Telephone [facility] 1.2.840.[address] [facility] 00:00:00 00:00:00 Steve SPECIALTY 350.1.13.10 ity of [facility] [place]7.2.[place] 841.5800647 [facility] [address] 2019-03-27 2019-03-27 Adriana [facility] 1.2.840.114 [id number] 88 Univers 00:00:00 00:00:00 Felix SPECIALTY 350.1.13.10 ity of [facility] 4.2.7.2.686 [place] [id number] [address] 2019-03-23 2019-03-23 [facility] 1.2.840.114 [id number] 00:00:00 00:00:00 Zana M SPECIALTY 350.1.13.10 [place] 4.2.7.2.686 [place] [id number] [facility] 2019-03-23 2019-03-23 [facility] 1.2.840.[id number] [facility] 00:00:00 00:00:00 Zana M SPECIALTY 350.1.13.10 ity [place] [id number] [address] 2019-03-22 2019-03-22 [facility] 1.2.840.114 [id number] 00:00:00 00:00:00 Steve SPECIALTY 350.1.13.10 [facility] 4.2.7.2.686 [place] [id number] [facility] 2019-03-22 2019-03-22 [facility] 1.2.840.114 [id number] [facility] 00:00:00 00:00:00 Steve SPECIALTY 350.1.13.10 ity of [facility] [place] [id number] [address] 2019-03-13 2019-03-13 [place] [facility] 1.2.465.268 [id number] 00:00:00 00:00:00 Felix SPECIALTY 350.1.13.10 [facility] 4.2.7.2.686 [place] [id number] [facility] 2019-03-13 2019-03-13 [facility] 1.2.069.168 [id number] [employer] 00:00:00 00:00:00 Felix SPECIALTY 350.1.13.10 ity of [facility] 4.2.7.2.686 [place] [id number] [address] 2019-03-06 2019-03-06 Telephone Jethro [facility] 1.2.188.513 [id number] 00:00:00 00:00:00 Felix SPECIALTY 350.1.13.10 [facility] 4.2.7.2.686 [place] [id number] 401 2019-03-06 2019-03-06 Telephone Jethro [facility] 1.2.310.828 [id number] [employer] 00:00:00 00:00:00 Felix SPECIALTY 350.1.13.10 ity of [facility] 4.2.7.2.686 [place] [id number] [address] 2019-03-02 2019-03-02 Telephone Estefania [facility] 1.2.840.[id number] [facility] 00:00:00 00:00:00 Steve SPECIALTY 350.1.13.10 ity of [facility] [place] [id number] [address] 2019-03-02 2019-03-02 Telephone [facility] 1.2.314.[id number] [facility] [facility] 00:00:00 00:00:00 Felix SPECIALTY 350.1.13.10 ity of [facility] 4.2.7.2.686 [place] [id number] [address] 2019-03-01 2019-03-01 Office [facility] 1.2.840.114 [id number] 10:54:40 12:12:56 Visit Felix SPECIALTY 350.1.13.10 [facility] 4.2.7.2.686 [place] [id number] [facility] 2019-03-01 2019-03-01 Office [facility] 1.2.840.[id number] [place] [address] 10:54:40 12:12:56 Visit Felix SPECIALTY 350.1.13.10 ity of [facility] 4.2.7.2.686 [place] as [place] [id number] [address] 2019-02-23 2019-02-23 Nurse NurseNamrata [facility] 1.2.840.[id number] [facility] 10:22:25 10:52:25 Visit JethroFelix parham SPECIALTY 350.1 .13.10 ity [place] [id number] [place] [address] [address] 2019-02-22 2019-02-22 [facility] [id number] [employer] 00:00:00 00:00:00 Felix SPECIALTY 350.1.13.10 ity of [facility] 4.2.7.2.686 [place] [id number] [address] 2019-02-21 2019-02-21 Telephone [facility] 1.2.840.114 [id number] Univers 00:00:00 00:00:00 Zana Antonio SPECIALTY 350.1.13.10 [place] [id number] [address] 2019-02-13 2019-02-13 Ref[facility]ley [facility] 1.2.840.114 [id number] Univers 00:00:00 00:00:00 Steve SPECIALTY 350.1.13.10 ity of [facility] [place] [id number] [address] 2018-03-08 2018-03-08 [facility] 1.2.840.[id number] [facility] 13:45:32 16:04:10 Visit Felix SPECIALTY 350.1.13.10 ity of [facility] 4.2.7.2.686 [place] [id number] [address] Results Test Description Test Time Test Comments Results Result Comments Source N-TERMINAL PRO-BNP 2023-03-03 23:57:46 Test Item Value Reference Range Interpretation Comme nts NT-proBNP (test code = 73334-8) <=125 Lab Interpretation (test code = 26363-0) [id number] 23:56:50 Test Item Value Reference Range Interpretation Comments TROPONIN I (test code = 0.007 ng/mL <=0.034 8085028039) JAMAL (test code = JAMAL) Reference (Normal) [...] biotin. Lab Interpretation Normal (test code = 19389-8) [facility] [place] [place]. METABOLIC PANEL ([id number])2023-03-03 23:45:54 Test Item Value Reference Range Interpretation Comments NA (test code = 142 mmol/L 135-145 8192704075) K (test code = 3.4 mmol/L 3.5-5.0 L 3743380693) CL (test code = 102 mmol/L 98-108 5518042073) CO2 TOTAL (test code = 25 mmol/L 23-31 0704070751) AGAP (test code = 15 2-16 1339122051) BUN (test code = 14 mg/dL 7-23 1676739253) GLUCOSE (test code = 119 mg/dL 70-110 H 9639474184) CREATININE (test code = 0.79 mg/dL 0.60-1.25 8159851720) TOTAL BILI (test code = 1.0 mg/dL 0.1-1.4 4076421093) CALCIUM (test code = 9.5 mg/dL 8.6-10.6 7727649751) T PROTEIN (test code = 8.1 g/dL 6.3-8.2 4974133801) ALBUMIN (test code = 4.8 g/dL 3.5-5.0 2389316839) ALK PHOS (test code = 106 U/L 34-122 3749067769) ALTv (test code = 21 U/L 5-50 1742-6) AST(SGOT) (test code = 44 U/L 13-40 H 9934321755) eGFR (test code = 126.4 mL/min/1.73m2 8848993267) JAAML (test code = JAMAL) Association of Glomerular [...] tests). Lab Interpretation Abnormal (test code = 83149-3) [facility] WITH [id number] 06:35:36 Test Item Value Reference Range Interpretation Comments WBC (test code = 6690-2) 13.74 See_Comment H [A utomated message] The system [employer] generated this result transmit rosanne reference range : 4.20 - 10.70 10*3/?L. The reference range was not used to interpret this result as normal/abnormal . RBC (test code = 789-8) 5.01 See_Comment [Au tomated message] The system [employer] generated this result transmit rosanne reference range : 4.26 - 5.52 10* 6/?L. The reference r genaro was not used to interpret this result as normal/abnormal . HGB (test code = 718-7) 16.6 g/dL 12.2-16.4 H HCT (test code = 4544-3) 45.9 % 38.4-49.3 MCV (test code = 787-2) 91.6 fL 81.7-95.6 MCH (test code = 785-6) 33.1 pg 26.1-32.7 H MCHC (test code = 786-4) 36.2 g/dL 31.2-35.0 H RDW-SD (test code = 40.8 fL 38.5-51.6 75521-7) RDW-CV (test code = 12.3 % 12.1-15.4 788-0) PLT (test code = 777-3) 510 See_Comment H [Au tomated message] The system [facility] generated this result transmit rosanne reference range : 150 - 328 10*3/?L. The reference range was not used to interpret this result as normal/abnormal . MPV (test code = 9.2 fL 9.8-13.0 L 13726-0) NRBC/100 WBC (test code 0.0 See_Comment [Au tomated message] = 8253404209) The system [facility] generated this result transmit rosanne reference range : 0.0 - 10.0 /100 WBC s. The reference r genaro was not used to interpret this result as normal/abnormal . NRBC x10^3 (test code = See_Comment [Au tomated message] 1135914046) The system [facility] generated this result transmit rosanne reference range : 10*3/?L. The reference range was not used to interpret this result as normal/abnormal . SEG % (test code = 40 % 33-76 10402-2) LYMPH % (test code = 51 % 14-54 86516-0) MONO % (test code = 9 % 0-4 H 09853-8) PLT ESTIMATE (test code Increased Normal A = 9317-9) GIANT PLATELETS (test Present See_Comment A [Auto mated message] code = 5908-9) The system [facility] generated this result transmit rosanne reference range : (none). The reference range was not used to interpret this result as normal/abnormal . Lab Interpretation (test Abnormal code = 35070-8) [facility] [id number] 06:11:22 Test Item Value Reference Range Interpretation Comments TROPONIN I (test code = 0.002 ng/mL <=0.034 1426368665) JAMAL (test code = JAMAL) Reference (Normal) [...] biotin. Lab Interpretation Normal (test code = 47298-0) [facility] [place] [place]. METABOLIC PANEL ([id number])2023-02-01 06:00:02 Test Item Value Reference Range Interpretation Comments NA (test code = 141 mmol/L 135-145 0458249825) K (test code = 4.0 mmol/L 3.5-5.0 7196334869) CL (test code = 103 mmol/L 98-108 1233312700) CO2 TOTAL (test code 27 mmol/L 23-31 = 5624919624) AGAP (test code = 11 2-16 6934279523) BUN (test code = 15 mg/dL 7-23 4528027789) GLUCOSE (test code = 93 mg/dL 70-110 3055915507) CREATININE (test code 0.91 mg/dL 0.60-1.25 = 4942297071) TOTAL BILI (test code 0.8 mg/dL 0.1-1.1 = 6633700984) CALCIUM (test code = 9.8 mg/dL 8.6-10.6 8930545750) T PROTEIN (test code 7.3 g/dL 6.3-8.2 = 0151338682) ALBUMIN (test code = 4.6 g/dL 3.5-5.0 7952845539) ALK PHOS (test code = 117 U/L 34-122 7576226942) ALTv (test code = 19 U/L 5-50 1742-6) AST(SGOT) (test code 22 U/L 13-40 = 0500371541) eGFR (test code = 107.3 mL/min/1.73m2 5511118038) JAMAL (test code = JAMAL) Association of [...] or urine or abnormalities in imaging tests). [facility] GLUCOSE (AUTOMATED)2023-01-18 14:52:41 Test Item Value Reference Range Interpretation Comments POCT GLU (test code = 0028820605) 110 mg/dL 70-110 Lab Interpretation (test code = Normal 02777-6) [facility] GLUCOSE (AUTOMATED)2023-01-18 14:52:41 Test Item Value Reference Range Interpretation Comments POCT GLU (test code = 9352454414) 110 mg/dL 70-110 Lab Interpretation (test code = Normal 06965-4) [facility] WITH [id number] 15:02:31 Test Item Value Reference Range Interpretation [...] RDW-SD (test code = 42.2 fL 38.5-51.6 88348-6) RDW-CV (test code = 12.5 % 12.1-15.4 788-0) PLT (test code = 510 See_Comment H [Automated 777-3) message] The system which generated this result transmit rosanne reference range : 150 - 328 10*3/ ?L. The reference range was not u sed to interpret th is result as normal/abnormal . MPV (test code = 8.8 fL 9.8-13.0 L 15498-9) NRBC/100 WBC (test 0.0 See_Comment [Automat ed code = 1213187382) message] The system which generated this result transmit rosanne reference range : 0.0 - 10.0 /100 WBCs. The reference range was not used to interpret this result as normal/abnormal . NRBC x10^3 (test code See_Comment [Auto mated = 0554522727) message] The system which generated this result transmit rosanne reference range : 10*3/?L. The reference range was not used to interpret this result as normal/abnormal . GRAN MAT (NEUT) % 51.0 % (test code = 770-8) IMM GRAN % (test code 0.80 % = 4097674608) LYMPH % (test code = 37.1 % 736-9) MONO % (test code = 10.6 % 5905-5) EOS % (test code = 0.0 % 713-8) BASO % (test code = 0.5 % 706-2) GRAN MAT x10^3(ANC) 5.65 10*3/uL 1.99-6.95 (test code = 3382501131) IMM GRAN x10^3 (test 0.09 10*3/uL 0.00-0.06 H code = 6036789394) LYMPH x10^3 (test code 4.10 10*3/uL 1.09-3.23 [...] 7795-8) REACT LYMPHS (test Rare code = 5380242623) Lab Interpretation Abnormal (test code = 15105-3) [facility] METABOLIC PANEL (NA, K, CL, CO2, GLUCOSE, BUN, CREATININE, CA)2023-01-15 13:56:39 Test Item Value Reference Range Interpretation Comments NA (test code = 142 mmol/L 135-145 3540091455) K (test code = 3.9 mmol/L 3.5-5.0 1593942896) CL (test code = 105 mmol/L 98-108 7541419734) CO2 TOTAL (test code 26 mmol/L 23-31 = 8272607199) AGAP (test code = 11 2-16 8180270117) BUN (test code = 9 mg/dL 7-23 1459297557) GLUCOSE (test code = 97 mg/dL 70-110 6340255003) CREATININE (test code 0.73 mg/dL 0.60-1.25 = 7770111684) CALCIUM (test code = 9.5 mg/dL 8.6-10.6 2852513749) eGFR (test code = 138.4 mL/min/1.73m2 0017851046) JAMAL (test code = JAMAL) Association of [...] or urine or abnormalities in imaging tests). [facility] 13:06:00 Test Item Value Reference Range Interpretation Comments ABO & RH (test code = 20) O Negative IAT (test code = 1185) Negative [facility] 11:37:51 Test Item Value Reference Range Interpretation Comments LIPASE (test code = 5222582742) 64 U/L 0-220 Lab Interpretation (test code = Normal 12348-8) [facility] ([facility]AM[facility]2022-10-29 10:13:11 Test Item Value Reference Range Interpretation Comments KEPPRA (test code = 12-46 L 9237266631) JAMAL (test code = JAMAL) Therapeutic range: 12-46 ?g/mL ? ?Toxic: Not well established.Test developed and characteristics determined by [facility] Laboratory Services. Lab Interpretation Abnormal (test code = 15838-0) [facility] [place] [place]. METABOLIC PANEL (40010)2022-10-29 10:01:02 Test Item Value Reference Range Interpretation Comments NA (test code = 139 mmol/L 135-145 6022987611) K (test code = 4.4 mmol/L 3.5-5.0 6140617255) CL (test code = 105 mmol/L 98-108 1957735743) CO2 TOTAL (test code 28 mmol/L 23-31 = 4581887269) AGAP (test code = 6 2-16 7625716125) BUN (test code = 14 mg/dL 7-23 7609119042) GLUCOSE (test code = 100 mg/dL 70-110 1739289593) CREATININE (test code 0.78 mg/dL 0.60-1.25 = 9255593769) TOTAL BILI (test code 0.9 mg/dL 0.1-1.1 = 9868330269) CALCIUM (test code = 9.6 mg/dL 8.6-10.6 6586539211) T PROTEIN (test code 7.1 g/dL 6.3-8.2 = 4009159984) ALBUMIN (test code = 4.7 g/dL 3.5-5.0 2233962392) ALK PHOS (test code = 114 U/L 34-122 9745438359) ALTv (test code = 21 U/L 5-50 1742-6) AST(SGOT) (test code 37 U/L 13-40 = 0075916714) eGFR (test code = 129.6 mL/min/1.73m2 7180074965) JAMAL (test code = JAMAL) Association of [...] or urine or abnormalities in imaging tests). [facility] 10:01:02 Test Item Value Reference Range Interpretation Comments MAGNESIUM (test code = 4689400390) 2.2 mg/dL 1.7-2.4 Lab Interpretation (test code = Normal 26977-6) [facility] WITH [id number] 09:57:59 Test Item Value Reference Range Interpretation Comments WBC (test code = 14.30 See_Comment H [Automated 2690-2) message] The sy stem which generated this result transmitted reference range : 4.50 - 13.50 10*3/?L. The reference range was not used to interpret this result as normal/abnormal . RBC (test code = 5.37 See_Comment H [Automated 721-8) message] The sy stem which generated this [...] RDW-SD (test code = 39.8 fL 38.5-49.0 17132-2) RDW-CV (test code = 12.2 % 11.5-14.0 788-0) PLT (test code = 500 See_Comment H [Automated 777-3) message] The sy stem which generated this result transmitted reference range : 133 - 320 10*3/ ?L. The reference r genaro was not used to interpret this result as normal/abnormal . MPV (test code = 8.9 fL 9.3-12.9 L 38805-0) NRBC/100 WBC (test 0.0 See_Comment [Automat ed code = 5267182220) message] The system which generated this result transmitted reference range : 0.0 - 10.0 /100 WBCs. The refer ence range was not u sed to interpret th is result as normal/abnormal . NRBC x10^3 (test code See_Comment [Auto mated = 4426070422) message] The s ystem which generated this result transmitted reference range : 10*3/?L. The reference range was not used to interpret this result as normal/abnormal . GRAN MAT (NEUT) % 36.2 % (test code = 770-8) IMM GRAN % (test code 0.90 % = 6975958449) LYMPH % (test code = 53.2 % 736-9) MONO % (test code = 9.4 % 5905-5) EOS % (test code = 0.0 % 713-8) BASO % (test code = 0.3 % 706-2) GRAN MAT x10^3(ANC) 5.17 10*3/uL 1.50-10.30 (test code = 9829315951) IMM GRAN x10^3 (test 0.13 10*3/uL 0.00-0.06 H code = 7855388541) LYMPH x10^3 (test code 7.61 10*3/uL 0.70-7.40 H = 731-0) MONO x10^3 (test code 1.35 10*3/uL 0.00-0.50 H = 742-7) EOS x10^3 (test code = 0.00-0.40 711-2) BASO x10^3 (test code 0.04 10*3/uL 0.00-0.10 = 704-7) HJ BODIES (test code = Present A 7793-3) REACT LYMPHS (test Rare code = 2911951872) Lab Interpretation Abnormal (test code = 58423-5) [facility] WITH [id number] 02:35:47 Test Item Value Reference Range Interpretation Comments WBC (test code = 11.68 See_Comment [Automated 6690-2) message] The sy stem which [...] RDW-SD (test code = 39.6 fL 38.5-49.0 90089-2) RDW-CV (test code = 12.1 % 11.5-14.0 788-0) PLT (test code = 486 See_Comment H [Automated 777-3) message] The sy stem which generated this result transmitted reference range : 133 - 320 10*3/ ?L. The reference r genaro was not used to interpret this result as normal/abnormal . MPV (test code = 9.1 fL 9.3-12.9 L 49692-0) NRBC/100 WBC (test 0.0 See_Comment [Automat ed code = 5351192932) message] The system which generated this result transmitted reference range : 0.0 - 10.0 /100 WBCs. The refer ence range was not u sed to interpret th is result as normal/abnormal . NRBC x10^3 (test code See_Comment [Auto mated = 7970038217) message] The s ystem which generated this result transmitted reference range : 10*3/?L. The reference range was not used to interpret this result as normal/abnormal . SEG % (test code = 40 % 33-76 18734-6) LYMPH % (test code = 50 % 15-55 38707-5) MONO % (test code = 10 % 0-4 H 83734-8) ANC (test code = 4.67 10*3/uL 1.50-10.30 753-4) Lab Interpretation Abnormal (test code = 63854-1) [facility] [id number] 02:22:04 Test Item Value Reference Range Interpretation Comments TROPONIN I (test code = 0.002 ng/mL <=0.034 3368500408) JAMAL (test code = JAMAL) Reference (Normal) [...] biotin. Lab Interpretation Normal (test code = 13847-2) [facility] CenterD-[id number] 02:12:53 Test Item Value Reference Interpretation Comments Range D-DIMER (test code = See_Comment [Autom ated 6824875451) message] The system which generated this result [...] diagnosis. Lab Interpretation Normal (test code = 87692-2) [facility] [place] [place]. METABOLIC PANEL (87430)2022-10-28 02:10:47 Test Item Value Reference Range Interpretation Comments NA (test code = 141 mmol/L 135-145 2145532352) K (test code = 4.1 mmol/L 3.5-5.0 1787947155) CL (test code = 107 mmol/L 98-108 6667200496) CO2 TOTAL (test code 23 mmol/L 23-31 = 4786371225) AGAP (test code = 11 2-16 8061177466) BUN (test code = 15 mg/dL 7-23 7480636406) GLUCOSE (test code = 104 mg/dL 70-110 2235185181) CREATININE (test code 0.73 mg/dL 0.60-1.25 = 4242912759) TOTAL BILI (test code 0.8 mg/dL 0.1-1.1 = 9602167713) CALCIUM (test code = 9.4 mg/dL 8.6-10.6 8191707338) T PROTEIN (test code 7.0 g/dL 6.3-8.2 = 0959627782) ALBUMIN (test code = 4.6 g/dL 3.5-5.0 9076858126) ALK PHOS (test code = 109 U/L 34-122 1448880429) ALTv (test code = 21 U/L 5-50 1742-6) AST(SGOT) (test code 23 U/L 13-40 = 9592842724) eGFR (test code = 139.9 mL/min/1.73m2 5498310060) JAMAL (test code = JAMAL) Association of [...] or abnormalities in imaging tests). [facility] WITH [id number] 05:00:52 Test Item Value Reference Range Interpretation Comments WBC (test code = 11.83 See_Comment [Automated 0315-2) message] The system which generated this result transmit rosanne reference range : 4.50 - 13.50 10*3/?L. The reference range was not used to interpret this result as normal/abnormal . RBC (test code = 4.93 See_Comment [Automated 137-8) message] The system which generated this result [...] RDW-SD (test code = 39.3 fL 38.5-49.0 85232-7) RDW-CV (test code = 11.9 % 11.5-14.0 788-0) PLT (test code = 450 See_Comment H [Automated 777-3) message] The system which generated this result transmit rosanne reference range : 133 - 320 10*3/ ?L. The reference range was not u sed to interpret th is result as normal/abnormal . MPV (test code = 9.2 fL 9.3-12.9 L 55469-6) NRBC/100 WBC (test 0.0 See_Comment [Automat ed code = 8008901790) message] The system which generated this result transmit rosanne reference range : 0.0 - 10.0 /100 WBCs. The reference range was not used to interpret this result as normal/abnormal . NRBC x10^3 (test code See_Comment [Auto mated = 9401182833) message] The system which generated this result transmit rosanne reference range : 10*3/?L. The reference range was not used to interpret this result as normal/abnormal . GRAN MAT (NEUT) % 34.0 % (test code = 770-8) IMM GRAN % (test code 0.60 % = 5718303060) LYMPH % (test code = 54.3 % 736-9) MONO % (test code = 9.2 % 5905-5) EOS % (test code = 1.6 % 713-8) BASO % (test code = 0.3 % 706-2) GRAN MAT x10^3(ANC) 4.03 10*3/uL 1.50-10.30 (test code = 2386271497) IMM GRAN x10^3 (test 0.07 10*3/uL 0.00-0.06 H code = 1419472475) LYMPH x10^3 (test code 6.42 10*3/uL 0.70-7.40 = 731-0) MONO x10^3 (test code 1.09 10*3/uL 0.00-0.50 H = 742-7) EOS x10^3 (test code = 0.19 10*3/uL 0.00-0.40 711-2) BASO x10^3 (test code 0.03 10*3/uL 0.00-0.10 = 704-7) SIDEROTIC GRAN (test Suggestive of A code = 7795-8) REACT LYMPHS (test Rare code = 7962583913) Lab Interpretation Abnormal (test code = 09137-1) [facility] (80799)2022-10-09 04:54:22 Test Item Value Reference Range Interpretation Comments NA (test code = 142 mmol/L 135-145 7252055204) K (test code = 4.0 mmol/L 3.5-5.0 1995315022) CL (test code = 108 mmol/L 98-108 1800040782) CO2 TOTAL (test code 25 mmol/L 23-31 = 3522512869) AGAP (test code = 9 2-16 3661929032) BUN (test code = 9 mg/dL 7-23 3702345460) GLUCOSE (test code = 106 mg/dL 70-110 0216869307) CREATININE (test code 0.74 mg/dL 0.60-1.25 = 5042032055) TOTAL BILI (test code 0.7 mg/dL 0.1-1.1 = 0116010556) CALCIUM (test code = 9.4 mg/dL 8.6-10.6 3128741945) T PROTEIN (test code 6.9 g/dL 6.3-8.2 = 1295160390) ALBUMIN (test code = 4.4 g/dL 3.5-5.0 9165149301) ALK PHOS (test code = 90 U/L 34-122 3482569903) ALTv (test code = 18 U/L 5-50 1742-6) AST(SGOT) (test code 22 U/L 13-40 = 1982300311) eGFR (test code = 137.8 mL/min/1.73m2 9866459251) JAMAL (test code = JAMAL) Association of [...] or urine or abnormalities in imaging tests). [facility] 04:53:42 Test Item Value Reference Range Interpretation Comments LIPASE (test code = 7780414038) 106 U/L 0-220 Lab Interpretation (test code = Normal 54999-7) [facility] [id number] 06:31:17 Test Item Value Reference Range Interpretation Comments NT-proBNP (test code See_Comment [Autom ated = 5942371382) message] The system which generated this result transmitted reference range : <=125. The reference range was not used to interpret this result as normal/abnormal . JAMAL (test code = JAMAL) Biotin has been reported to cause a negative bias, interpret results relative to patient's use of biotin. Lab Interpretation Normal (test code = 96619-2) [facility] WITH [id number] 06:22:31 Test Item Value Reference Range Interpretation Comments WBC (test code = See_Comment H [Automated 6690-2) message] The sy [...] RDW-SD (test code = 43.3 fL 38.5-49.0 82453-2) RDW-CV (test code = 13.1 % 11.5-14.0 788-0) PLT (test code = See_Comment H [Automated 777-3) message] The sy stem which generated this result transmitted reference range : 133 - 320 10*3/ ?L. The reference r genaro was not used to interpret this result as normal/abnormal . MPV (test code = 8.9 fL 9.3-12.9 L 78049-6) NRBC/100 WBC (test See_Comment [Automat ed code = 7064903248) message] The system which generated this result transmitted reference range : 0.0 - 10.0 /100 WBCs. The refer ence range was not u sed to interpret th is result as normal/abnormal . NRBC x10^3 (test code See_Comment [Auto mated = 2513989850) message] The s ystem which generated this result transmitted reference range : 10*3/?L. The reference range was not used to interpret this result as normal/abnormal . GRAN MAT (NEUT) % 40.3 % (test code = 770-8) IMM GRAN % (test code 2.30 % = 5168209879) LYMPH % (test code = 33.9 % 736-9) MONO % (test code = 9.1 % 5905-5) EOS % (test code = 13.1 % 713-8) BASO % (test code = 1.3 % 706-2) GRAN MAT x10^3(ANC) 5.45 10*3/uL 1.50-10.30 (test code = 7152320189) IMM GRAN x10^3 (test 0.31 10*3/uL 0.00-0.06 H code = 9710094531) LYMPH x10^3 (test code 4.60 10*3/uL 0.70-7.40 = 731-0) MONO x10^3 (test code 1.24 10*3/uL 0.00-0.50 H = 742-7) EOS x10^3 (test code = 1.78 10*3/uL 0.00-0.40 H 711-2) BASO x10^3 (test code 0.18 10*3/uL 0.00-0.10 H = 704-7) REACT LYMPHS (test Moderate code = 3030323230) Lab Interpretation Abnormal (test code = 20017-1) [facility] [id number] 06:20:41 Test Item Value Reference Interpretation Comments Range TROPONIN I (test 0.001 ng/mL See_Comment [Automated code = 6903644024) message] The system which generated this result [...] biotin. Lab Interpretation Normal (test code = 84511-0) [facility] [place] [place]. METABOLIC PANEL (87732)2022-06-21 06:09:03 Test Item Value Reference Range Interpretation Comments NA (test code = 138 mmol/L 135-145 0811258879) K (test code = 4.4 mmol/L 3.5-5.0 0829808700) CL (test code = 104 mmol/L 98-108 1431361404) CO2 TOTAL (test code = 27 mmol/L 23-31 8030887969) AGAP (test code = 2-16 0152451917) BUN (test code = 10 mg/dL 7-23 9485516339) GLUCOSE (test code = 115 mg/dL 70-110 H 3518470906) CREATININE (test code = 0.71 mg/dL 0.60-1.25 2848098817) TOTAL BILI (test code = 0.8 mg/dL 0.1-1.2 8787113902) CALCIUM (test code = 9.6 mg/dL 8.6-10.6 2770888417) T PROTEIN (test code = 6.6 g/dL 6.3-8.2 1928166852) ALBUMIN (test code = 4.3 g/dL 3.5-5.0 1523730660) ALK PHOS (test code = 107 U/L 34-122 1389430836) ALTv (test code = 27 U/L 5-50 1742-6) AST(SGOT) (test code = 29 U/L 13-40 3512380072) eGFR (test code = mL/min/1.73m2 1101255613) JAMAL (test code = JAMAL) Association of [...] tests). Lab Interpretation Abnormal (test code = 95566-6) [id number] 06:07:03 Test Item Value Reference Range Interpretation Comments APTT Patient (test See_Comment [Automat ed code = 3173-2) message] The system which generated this result transmitted reference range : 23 - 38 Seconds . The reference range was not used to interpr et this result as normal/abnormal . JAMAL (test code = JAMAL) The [facility] patient population mean normal value for aPTT is 30 seconds. Lab Interpretation Normal (test code = 61846-4) [facility] / [id number] 06:05:04 Test Item Value Reference Range Interpretation [...] tions. Lab Interpretation (test Normal code = 60777-7) [facility] (33818)2022-05-29 02:48:30 Test Item Value Reference Range Interpretation Comments NA (test code = 140 mmol/L 135-145 [id number]) K (test code = 4.4 mmol/L 3.5-5.0 8457336753) CL (test code = 103 mmol/L 98-108 9711729721) CO2 TOTAL (test code = 24 mmol/L 23-31 8707565820) AGAP (test code = 2-16 8662258103) BUN (test code = 13 mg/dL 7-23 9800289957) GLUCOSE (test code = 183 mg/dL 70-110 H 8349295811) CREATININE (test code = 0.74 mg/dL 0.60-1.25 0147517968) TOTAL BILI (test code = 0.5 mg/dL 0.1-1.9 4137855523) CALCIUM (test code = 10.4 mg/dL 8.6-10.6 8250090148) T PROTEIN (test code = 7.8 g/dL 6.3-8.2 [id number]) ALBUMIN (test code = 5.0 g/dL 3.5-5.0 6618035559) ALK PHOS (test code = 140 U/L 34-122 H 7704951538) ALTv (test code = 26 U/L 5-50 1742-6) AST(SGOT) (test code = 26 U/L 13-40 0421350182) eGFR (test code = mL/min/1.73m2 8636350188) JAMAL (test code = JAMAL) Association of [...] tests). Lab Interpretation Abnormal (test code = 30793-0) [facility] WITH [id number] 02:38:32 Test Item Value Reference Range Interpretation [...] (test code = 37.9 fL 38.5-49.0 L 01886-8) RDW-CV (test code = 11.9 % 11.5-14.0 788-0) PLT (test code = See_Comment H [Automated 777-3) message] The system which generated this result transmit rosanne reference range : 133 - 320 10*3/ ?L. The reference range was not u sed to interpret th is result as normal/abnormal . MPV (test code = 8.9 fL 9.3-12.9 L 89051-9) NRBC/100 WBC (test See_Comment [Automat ed code = 7729497226) message] The system which generated this result transmit rosanne reference range : 0.0 - 10.0 /100 WBCs. The reference range was not used to interpret this result as normal/abnormal . NRBC x10^3 (test code See_Comment [Auto mated = 9907352865) message] The system which generated this result transmit rosanne reference range : 10*3/?L. The reference range was not used to interpret this result as normal/abnormal . GRAN MAT (NEUT) % 84.1 % (test code = 770-8) IMM GRAN % (test code 1.50 % = 6796906449) LYMPH % (test code = 13.1 % 736-9) MONO % (test code = 0.8 % 5905-5) EOS % (test code = 0.0 % 713-8) BASO % (test code = 0.5 % 706-2) GRAN MAT x10^3(ANC) 12.92 10*3/uL 1.50-10.30 H (test code = 6004528062) IMM GRAN x10^3 (test 0.23 10*3/uL 0.00-0.06 H code = 1749056691) LYMPH x10^3 (test code 2.02 10*3/uL 0.70-7.40 = 731-0) MONO x10^3 (test code 0.13 10*3/uL 0.00-0.50 = 742-7) EOS x10^3 (test code = 0.00-0.40 711-2) BASO x10^3 (test code 0.07 10*3/uL 0.00-0.10 = 704-7) Lab Interpretation Abnormal (test code = 88538-1) [facility] 12:45:36 Test Item Value Reference Range Interpretation Comments ANTI-NUCLEAR ANTIBODY (FERNANDA) (BEAKER) Negative Negative (test code = 418) Test performed by IFA method.Test performed by IFA method.[id number] 18:24:41 Test Item Value Reference Range Interpretation Comments FERRITIN (BEAKER) (test code = 130.99 ng/mL 5.00-275.00 361) Civil Laboratory Technician ID - BSHEPATITIS C [id number] 17:56:40 Test Item Value Reference Range Interpretation Comments HEPATITIS C ANTIBODY (BEAKER) Nonreactive Nonreactive (test code = 367) Civil Laboratory Technician ID - BSHEPATITIS B SURFACE [id number] 17:52:06 Test Item Value Reference Range Interpretation Comments HEPATITIS B SURFACE ANTIBODY < mIU/mL <8.0 (BEAKER) (test code = 647) Civil Laboratory Technician ID - BSHEPATITIS A ANTIBODY, [id number] 17:52:01 Test Item Value Reference Range Interpretation Comments HEPATITIS A IGG ANTIBODY (BEAKER) Reactive Nonreactive A (test code = 2797) Civil Laboratory Technician ID - BSHEPATITIS B CORE ANTIBODY, [id number] 17:49:35 Test Item Value Reference Range Interpretation Comments HEPATITIS B CORE TOTAL ANTIBODY Nonreactive Nonreactive (BEAKER) (test code = 497) Civil Laboratory Technician ID - BSHEPATITIS B SURFACE [id number] 17:49:35 Test Item Value Reference Range Interpretation [...] to interpret this result as normal/abnormal . Civil Laboratory Technician ID - BSIRON, TIBC, % SAT. (WITHOUT FERRITIN)2022-04-08 17:34:53 Test Item Value Reference Range Interpretation Comments IRON (BEAKER) (test code = 547) 122.0 ug/dL 40.0-160.0 TOTAL IRON BINDING CAPACITY 306 ug/dL 250-450 (BEAKER) (test code = 769) IRON % SATURATION (2) (BEAKER) 40 % 20-55 (test code = 2590) Civil Laboratory Technician ID - [id number] 17:30:09 Test Item Value Reference Range Interpretation Comments ALPHA-1 ANTITRYPSIN (BEAKER) 140.80 mg/dL 90.00-200.00 (test code = 502) Civil Laboratory Technician ID - BSCOMPREHENSIVE METABOLIC [id number] 17:18:27 Test Item Value Reference Range Interpretation [...] eGF R is based on the CKD-EPI 2021 equation that d oes not use a race coefficientEsti mated GFR is not as accur ate as Creatinine Yola raciel in predicting glom erular filtration rate . Estimated GFR is not appl icable for dialysis patien ts Civil Laboratory Technician ID - BSBILIRUBIN, [id number] 17:18:27 Test Item Value Reference Range Interpretation Comments BILIRUBIN DIRECT (BEAKER) (test 0.3 mg/dL 0.1-0.5 code = 706) Civil Laboratory Technician ID - BSCBC W/PLT COUNT & AUTO [id number] 16:58:21 Test Item Value Reference Range Interpretation [...] = 2801) Notes Date/Time Note Provider Source 2023-03-03 Formatting of this note might be differe nt from the original. Tico Garduno RN [facility] 19:59:51-00:00 Pt and guardians given print ed and verbal discharge instructions regarding chest wall pain, encouraged hydration. Pt verbalized understanding of instructions, pt awake alert oriented, resp reg unlabored, skin w/d, color appropriate for race, moves all ext well,pt encouraged to follow up with pcp and electrophysiology. Advised to seek medical attention for new/prolon ged/worsening of symptoms. No adverse reaction to meds given in ER noted up on discharge. PIV d'cd, dressing to site, catheter in tact. Awake, alert oriented, resp reg unlabored, skin w/d, pt leaving amb with steady gait, in no apparent distress. 2023-03-03 [facility] 13:47:39-00:00 Patient currently at ER. States that patient has been having pain at ILR insertion site, which was placed 02/23/23. While he was at school today eating his lunch, he became lightheaded so they too him to ER. Routing as FYI to Dr. Maurice. Electronically signed by Leigh Brower, PAYAM at 1:49 PM CDT 2023-03-03 Formatting of this note might be differe nt from the original. Katiana Oliva RN [facility] 13:39:25-00:00 CC: patient presents to the ER with complaints of chest wall pain at the insertion site of his new loop recorder and lightheadedness that began today around 1100. 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 PMHx: see history Awake, alert, oriented, resp reg unlabored, skin warm and dry, color appropriate for race, moves all ext without difficulty, using wheelchair. Appears in no distress. 2023-03-03 Formatting of this note might be differe nt from the original. Oli Andres [facility] 11:51:55-00:00 Manjinder Arrieta is a 17 year old male Mom is calling regarding pts heart concerns and wants to speak to nurse thierry Please advise [phone] (home) Electronically signed by Oli Andres at 02/16 11:53 AM CDT 2023-03-03 Formatting of this note might be differe nt from the original. Dhara Lerner RN [facility] 10:11:53-00:00 Forms have been received and placed in providers folder for review. Will send back when signed. Closing encounter. 2023-03-03 Formatting of this note might be differe nt from the original. Paula Cruz [facility] 09:47:42-00:00 Patient mom called stating s he is needing a school note for the nurse regarding her sons monitor he has on nurse is very concerned and needs documentation on if she is needing to check it every so often through out the day. Please e-mail the school n fawn at [email or web address] Please advise, thank you. Electronically signed by Paula Cruz at 0 03/03/2023 9:50 AM CDT 2023-03-03 Formatting of this note might be differe nt from the original. Rachel Marrero [facility] 09:36:10-00:00 Patient mother calling stati ng the patient has returned back to public school and the school nurse is needing a seizure action plan form sent to her by E- mail. Please advise [facility] Nurse: Shelby Rosario E-mail: [email or web address] Electronically signed by Rachel Marrero at 02/16 9:38 AM CDT 2023-02-23 Formatting of this note might be differe nt from the original. Eugenia Mojica RN [facility] 11:01:45-00:00 AVS given and gone over with pt and family, all questions answered. Lt chest dressing C/D/I. IV removed, dressing C/D/I. Pt and mom ambulated to lobby on foot. No distress noted. T 2023-02-22 Formatting of this note might be differe nt from the original. Dhara Lerner RN [facility] 11:22:05-00:00 Pt.S family notified, and ab le to verbalized understanding of directions and use of the nasel sumatriptan. Pt's mother stated that he never got the sumatriptan oral, according to pt's mother, the pharmacist only gave them one. Closing encounter. T 2023-02-22 [facility] 10:36:41-00:00 Done. Please instruct them n ot to use sumatriptan (which includes the nasal spray and the pills) for more than 10 days in a month. Thanks. Electronically signed by Jose Christopher MD at 10:37 AM [facility] 2023-02-22 [facility] 10:16:10-00:00 please review and a dvise. mother is requesting a prescription for Imitrex nasal spray. Please advise, thank you. T 2023-02-22 Formatting of this note might be differe nt from the original. Steve Cooper RN [facility] 09:04:34-00:00 Patient to arrive at new time of 729 Electronically signed by Steve Cooper RN at 0 02/22/2023 9:05 AM CDT 2023-02-22 Formatting of this note might be differe nt from the original. Rosemary Siddiqi [facility] 08:45:16-00:00 Manjinder Arrieta is a 17 year old male Mom Candy calling to see about getting RX for imitrex nasal spray. She is requesting 2 boxes. He is about to start school. Please give her a call with any questions. [employer] [id number] - [place], [place] - [address] [place] [address] Electronically signed by Rosemary Siddiqi at 0 02/22/2023 8:47 AM CDT 2023-02-18 Formatting of this note might be differe nt from the original. Sarbjit Coyle RN [facility] 10:54:02-00:00 Pt's mother called to let us know that cardio clearance cannot be given yet until further diagnostics are completed as per application security specialist 2023-02-18 [facility] 10:06:58-00:00 Medical Records requested fr om [employer]. For Dr. Priest, Dr. Michael, Dr. Bosch faxed to [facility] Dept. Follow up with them for status updates. Electronically signed by Michele Simons MA a t 02/18/2023 10:08 AM CDT 2023-02-18 Formatting of this note might be differe nt from the original. Sarbjit Coyle RN [facility] 09:06:46-00:00 Pt's mother returned call an d stated she would put a call into application security specialist to see if clearance can be given. 2023-02-18 Formatting of this note might be differe nt from the original. Sarbjit Coyle RN [facility] 08:57:44-00:00 I called pt to ask where we are on getting cardio clearance so pt can get EGD. Pt has cardio appt on 02/23/23. No answer, I left VM with my call back number. 2023-02-17 [facility] 11:18:31-00:00 [facility] EP LAB PRE-CALL INSTRUCTIONS EP Instructions were sent to patient via: Other - telephone Your physician has determine d that you need to undergo a(n) Loop Recorder procedure. Listed below are some instructions for you to fo llow prior to the procedure. Do not eat or drink anything after midnight the night before the procedure, except for enough water to take your medications if so directed. Take all medications except do not take metformin (Glucophage) 2 days prior to the procedure and do not take insulin or furosemide (lasix) the day of the procedure. If you are on blood thinners special instructions will be given to you prior to the p rocedure. If you are allergic to iodin e or shellfish, take pre-treatment medications as directed. Please call your referring physician for prescription. Bring a list of all current medications. Bring one adult family membe r or friend with you to drive you home, as you will be unable to drive for 48 hours after the procedure. Due to limited space and pat ient privacy, only one (1) visitor is permitted with the patient while they are recovering in the recovery area. No children under the age of 14 years will be al lowed in recovery area. Please park in the Hospital Garage via [address] from either [address] or [address]. Bring your parking ticket with you to be validated, only one parking ticket may be validated per patient. There may be a possibility o f hospital admission or late evening discharge; therefore, bring leisure reading and an overnight bag. On the day of your procedure , come directly to the Electrophysiology Lab call center receptionist desk, located on the 6th floor of [facility] ([phone].) You will be escorted to the Cardiac Cath/EP recovery room. Please call the Electrophysi ology Lab at if you have any questions regarding your procedure. Date of Procedure: 02/23/23 Time of Procedure: 061 5 Vendors Needed: Vendors Verified: Anesthesia Verified: Anesthesia Consent: Drug Allergies? Yes Labs Verified? Note in Chart and any Important Info needed for the case: Instructions given to patient: yes Family member provided with preferred teaching of verbal information on 02/17/23. Shows readiness to learn. Verbal instruction teaching provided. Individual is able to read and verbalizes understanding of teaching provided. 2023-02-10 Formatting of this note might be differe nt from the original. Christen Siddiqi MA [facility] 09:41:44-00:00 Spoke to Martita with [facility], medication is to be sent to patient. Verbal understanding. 2023-02-09 Formatting of this note might be differe nt from the original. Rosemary Siddiqi [facility] 16:45:59-00:00 Manjinder Arrieta is a 17 year old male Anabela calling w/ [facility] needing to know where to dispense the medication nucala 100mg: to the patient or to the office? Please call to confirm. Electronically signed by Rosemary Siddiqi at 0 02/09/2023 4:47 PM CDT
[2023-03-05] MEDS ORDERED: KETOROLAC 30 MG/ML INJ ONE (23:54)
[2023-03-06 00:34] LABS: Absolute Lymphocytes (CBC) 6.2 K/uL (0.7-4.9); Hematocrit 43.3 % (39.6-49.0); Lymphocytes % 42.7 % (15.3-44.8); MPV 7.3 fL (7.6-11.3); Platelets 483 thou/uL (152-406); RBC Red Blood Cell Count 4.76 M/uL (4.33-5.43)
[2023-03-06 00:37] LABS: Albumin 3.9 g/dL (3.4-5.0); Bilirubin Direct 0.1 mg/dL (0-0.2); Bilirubin Indirect, Calculated 0.4 mg/dL (0.2-0.8); Bilirubin Total 0.5 mg/dL (0.2-1.0); Magnesium 2.4 mg/dL (1.6-2.4); Potassium 3.6 mEq/L (3.5-5.1); Protein, Total 6.9 g/dL (6.4-8.2); Troponin High Sensitivity 5.7 pg/mL (<58.9)
--- NOTE | 2023-03-06 01:13 | ER ---
Nurse's Notes [facility] Name: Manjinder Arrieta Age: 17 yrs Sex: Male : 2005 Arrival Date: 03/05/2023 Time: 22:24 Bed 7 Private MD: Diagnosis: Chest pain, unspecified;Syncope Near;Blurred Vision Presentation: 03/05 22:42 Chief complaint: Patient states: chest pain to the left side of his chest and blurred cm10 vision onset tonight at 2130. Pt had loop recorder put in on 02/23/2023. Coronavirus screen: Vaccine status: Patient reports receiving the 2nd dose of the covid vaccine. Ebola Screen: Patient denies travel to an Ebola-affected area in the 21 days before illness onset. No symptoms or risks identified at this time. Initial Sepsis Screen: Does the patient meet any 2 criteria? No. Patient's initial sepsis screen is negative. Does the patient have a suspected source of infection? No. Patient's initial sepsis screen is negative. Risk Assessment: Do you want to hurt yourself or someone else? Patient reports no desire to harm self or others. Onset of symptoms was March 05, 2023. 22:42 Method Of Arrival: Wheelchair cm10 22:42 Acuity: YESSY 3 cm10 Historical: - Allergies: 22:41 adhesive tape; cm10 22:41 Adhesives; cm10 22:41 Albuterol; cm10 22:41 cefixime; cm10 22:41 Clindamycin; cm10 22:41 Latex, Natural Rubber; cm10 22:41 montelukast; cm10 22:41 [place] (Prunus Persica); cm10 22:41 PENICILLINS; cm10 22:41 Prednisone; cm10 22:41 Sulfa (Sulfonamide Antibiotics); cm10 22:41 Suprax; cm10 22:41 Vancomycin; cm10 - PMHx: 22:41 ADD/ADHD; Anemia; Anxiety; Asthma; Autism; bacterial meningitis; Bipolar disorder; cm10 Depression; epillepsy; hepatosplegomegaly; Migraines; - PSHx: 22:41 Adenoid excision; ear tubes; eye surgery; fundiplication; Splenectomy; tear duct cm10 surgeries; Tonsillectomy; - Immunization history:: Adult Immunizations up to date. - Social history:: Smoking status: Patient denies any tobacco usage or history of. Screenin:16 [facility] ED Fall Risk Assessment (Adult) Score/Fall Risk Level 0 - 2 = Low Risk. Abuse as6 screen: Denies threats or abuse. Denies injuries from another. Nutritional screening: No deficits noted. Tuberculosis screening: No symptoms or risk factors identified. Assessment: 23:15 General: Appears in no apparent distress. Behavior is calm, cooperative, appropriate as6 for age, quiet. Pain: Complains of pain in chest. Neuro: Level of Consciousness is awake, alert, obeys commands, Oriented to person, place, time, situation, Reports dizziness. Cardiovascular: Reports chest pain, lightheadedness, Capillary refill < 3 seconds Patient's skin is warm and dry. Respiratory: Respiratory effort is even, unlabored, Respiratory pattern is regular, symmetrical. 03/06 01:11 Reassessment: Patient appears in no apparent distress at this time. Patient and/or jb4 family updated on plan of care and expected duration. Pain level reassessed. Patient is alert, oriented x 3, equal unlabored respirations, skin warm/dry/pink. Vital Signs: 03/05 22:42 BP 120 / 81; Pulse 96; Resp 18 S; Temp 97.7; Pulse Ox 97% on R/A; Weight 83.91 kg; cm10 Height 5 ft. 8 in. ; Pain 10/10; 23:53 BP 126 / 85; Pulse 76; Resp 18 S; Pulse Ox 98% on R/A; as6 03/06 01:07 BP 120 / 72 LA Supine (auto/reg); Pulse 70; Resp 16; Pulse Ox 98% on R/A; jb4 01:08 BP 120 / 78 LA (auto/reg); Pulse 74; Resp 16; Pulse Ox 98% on R/A; jb4 01:09 BP 115 / 77 LA Standing (auto/reg); Pulse 88; Resp 16; Temp 98.2(TE); Pulse Ox 98% on jb4 R/A; 03/05 22:42 Body Mass Index 28.13 (83.91 kg, 172.72 cm) cm10 03/05 22:42 Pain Scale: Adult cm10 ED Course: 03/05 22:27 Patient arrived in ED. jj6 22:44 Triage completed. cm10 22:44 Arm band placed on Patient placed in an exam room, on a stretcher. cm10 22:45 Christen Beltre MD is Attending Physician. sd2 22:48 Bernabe Ayala, RN is Primary Nurse. as6 23:17 Bed in low position. Call light in reach. Side rails up X2. Adult w/ patient. as6 23:53 Inserted saline lock: 18 gauge in right antecubital area, using aseptic technique. as6 Blood collected. 03/06 00:16 XRAY Chest (1 view) In Process Unspecified. EDMS 00:16 CT Head Brain wo Cont In Process Unspecified. EDMS 01:22 No provider procedures requiring assistance completed. IV discontinued, intact, jb4 bleeding controlled, No redness/swelling at site. Pressure dressing applied. Administered Medications: 03/05 23:53 Drug: Ketorolac IVP 15 mg Route: IVP; Site: right antecubital; as6 Medication: 23:16 VIS not applicable for this client. as6 Outcome: 03/06 01:12 Discharge ordered by . sd2 01:22 Discharged to home ambulatory. jb4 01:22 Condition: stable 01:22 Discharge instructions given to patient, family, Instructed on discharge instructions, follow up and referral plans. Demonstrated understanding of instructions, follow-up care. 01:23 Patient left the ED. jb4 Signatures: Dispatcher [employer] EDJose Pastrana, RN RN jb4 Jovana Morse jj6 Bernabe Ayala, RN RN as6 Christen Beltre MD MD sd2 Concepcion Ceron, RN RN cm10 Corrections: (The following items were deleted from the chart) 01:23 01:09 BP 115 / 77 Standing Auto L Arm Regular; Pulse 88bpm; Resp 16bpm; Pulse Ox 98% jb4 RA; jb4
--- NOTE | 2023-03-06 01:13 | EDPHYS ---
Physician Documentation [facility] Name: Manjinder Arrieta Age: 17 yrs Sex: Male : 2005 Arrival Date: 03/05/2023 Time: 22:24 Bed 7 Private MD: ED Physician Christen Beltre HPI: 03/06 00:18 This 17 yrs old Male presents to ER via Wheelchair with complaints of Dizziness, sd2 Blurred Vision, Chest Pain. 00:18 17 yo M presents with CC of left sided chest pain radiating to his left shoulder sd2 starting tonight with associated lightheadedness and blurred vision. Pt reports a feeling of near syncope. Mother reports "he can't see" but the patient states his vision is just blurry. However, patient is very inconsistent with describing what he can and cannot see at this time. He is autistic and has difficulty communicating. He denies any associated SOB, nausea, vomiting, diarrhea or abdominal pain. He is seen by a bank reconciliator and EP and had a loop recorder implanted 10 days ago with next upload to occur this upcoming to his doctor's office. Pt has had many visits in the past for the same symptoms with negative workups. Mother reports his heart rate ranged from 49 to 130 at home when she checked.. Historical: - Allergies: 03/05 22:41 adhesive tape; cm10 22:41 Adhesives; cm10 22:41 Albuterol; cm10 22:41 cefixime; cm10 22:41 Clindamycin; cm10 22:41 Latex, Natural Rubber; cm10 22:41 montelukast; cm10 22:41 F[place] (Prunus Persica); cm10 22:41 PENICILLINS; cm10 22:41 Prednisone; cm10 22:41 Sulfa (Sulfonamide Antibiotics); cm10 22:41 Suprax; cm10 22:41 Vancomycin; cm10 - PMHx: 22:41 ADD/ADHD; Anemia; Anxiety; Asthma; Autism; bacterial meningitis; Bipolar disorder; cm10 Depression; epillepsy; hepatosplegomegaly; Migraines; - PSHx: 22:41 Adenoid excision; ear tubes; eye surgery; fundiplication; Splenectomy; tear duct cm10 surgeries; Tonsillectomy; - Immunization history:: Adult Immunizations up to date. - Social history:: Smoking status: Patient denies any tobacco usage or history of. ROS: 03/06 00:18 Constitutional: Negative for fever, chills, and weight loss, Eyes: Negative for injury, sd2 pain, redness, and discharge, Positive for blurred vision Cardiovascular: Positive for chest pain, Negative for palpitations, and edema, Respiratory: Negative for shortness of breath, cough, wheezing. Abdomen/GI: Negative for abdominal pain, nausea, vomiting, diarrhea. MS/Extremity: Negative for injury and deformity, Skin: Negative for injury, rash, and discoloration, Neuro: Negative for headache, numbness and tingling. Exam: 00:18 Constitutional: This is a well developed, well nourished patient who is awake, alert, sd2 and in no acute distress. Head/Face: Normocephalic, atraumatic. Eyes: EOMI, normal conjunctiva bilaterally, pt able to track clearly around the room different objects and focus on objects when distracted Chest/axilla: Normal chest wall appearance and motion. Nontender with no deformity. Cardiovascular: Regular rate and rhythm with a normal S1 and S2. No gallops, murmurs, or rubs. 2+ distal pulses. Respiratory: Lungs have equal breath sounds bilaterally, clear to auscultation and percussion. No rales, rhonchi or wheezes noted. No increased work of breathing, no retractions or nasal flaring. Abdomen/GI: Soft, non-tender, with normal bowel sounds. No guarding or rebound. No evidence of tenderness throughout. Skin: Warm, dry with normal turgor. Normal color with no rashes, no lesions, and no evidence of cellulitis. MS/ Extremity: Pulses equal, no cyanosis. Neurovascular intact. Full, normal range of motion. Ambulatory without difficulty. Psych: Awake, alert, with orientation to person, place and time. Behavior, mood, and affect are within normal limits. 00:23 ECG was reviewed by the Attending Physician. NSR, rate 73, early repolarization changes sd2 present, no STEMI criteria Vital Signs: 03/05 22:42 BP 120 / 81; Pulse 96; Resp 18 S; Temp 97.7; Pulse Ox 97% on R/A; Weight 83.91 kg; cm10 Height 5 ft. 8 in. ; Pain 10/10; 23:53 BP 126 / 85; Pulse 76; Resp 18 S; Pulse Ox 98% on R/A; as6 03/06 01:07 BP 120 / 72 LA Supine (auto/reg); Pulse 70; Resp 16; Pulse Ox 98% on R/A; jb4 01:08 BP 120 / 78 LA (auto/reg); Pulse 74; Resp 16; Pulse Ox 98% on R/A; jb4 01:09 BP 115 / 77 LA Standing (auto/reg); Pulse 88; Resp 16; Temp 98.2(TE); Pulse Ox 98% on jb4 R/A; 03/05 22:42 Body Mass Index 28.13 (83.91 kg, 172.72 cm) cm10 03/05 22:42 Pain Scale: Adult cm10 MDM: 03/05 22:45 Patient medically screened. sd2 03/06 00:18 Differential diagnosis: Differential diagnosis includes but is not limited to: ACS, sd2 DVT/PE, pneumothorax, dissection, musculoskeletal, anxiety, anemia, electrolyte abnormality, pneumonia, CHF, COPD among others. Data reviewed: vital signs, nurses notes, lab test result(s), EKG, radiologic studies. Historians other than the Patient: Parent: Provides further hx due to patient's communication issues. Care significantly affected by the following chronic conditions: Autism. 01:09 I considered the following discharge prescriptions or medication management in the dc2 emergency department Medications were administered in the Emergency Department. See MAR. Test considered but Not performed: CT: CTA Chest not performed as patient is PERC negative.. Scoring Tools HEART Score: History: Slightly Suspicious (0) ECG: Non specific repolarization disturbance/ LBTB/ PM (1) Age: < or = 45 years (0) Risk Factors: No Risk factors known (0) Troponin: < or = 1 x Normal limit (0) Total Score = 1. Counseling: I had a detailed discussion with the patient and/or guardian regarding the historical points, exam findings, and any diagnostic results supporting the discharge/admit diagnosis, lab results, radiology results, the need for outpatient follow up, to return to the emergency department if symptoms worsen or persist or if there are any questions or concerns that arise at home. ED course: Labs and imaging reviewed. No concerning findings at this time. Labs grossly WNCL with negative troponin. Pt has had negative D-dimer in the past with the same symptoms and is PERC negative so no indication for further PE rule out testing at this time. CXR with no acute process. CT head also negative and no focal neuro deficits. Pt is able to see and is feeling better at time of repeat evaluation after receiving Toradol. Will follow up with PCP and Data Virtualization Consultant this upcoming week to check loop recorder and see if any events. No events noted on telemetry throughout his stay in the ER. Parents comfortable with plan for discharge and outpatient follow up and verbalize understanding of strict return precautions.. 01:13 ED course: Doubt significant eye emergency with normal eye exam and patient is able to sd2 see but blurred at initial evaluation but can be seen clearly focusing and tracking and identifying certain objects throughout stay when distracted. Doubt CVA or significant issue at this time. Blurred vision could also be from his near syncopal episode which has now resolved as well. . 03/05 23:32 Order name: Basic Metabolic Panel; Complete Time: 00:40 03/05 23:32 Order name: CBC with Diff; Complete Time: 00:40 03/05 23:32 Order name: LFT's; Complete Time: 00:40 03/05 23:32 Order name: Magnesium; Complete Time: 00:40 03/05 23:32 Order name: NT PRO-BNP; Complete Time: 00:40 03/05 23:32 Order name: Troponin HS; Complete Time: 00:40 03/05 23:32 Order name: XRAY Chest (1 view) 03/05 23:33 Order name: CT Head Brain wo Cont 03/05 23:32 Order name: EKG; Complete Time: 23:33 03/05 23:32 Order name: Cardiac monitoring; Complete Time: 23:34 03/05 23:32 Order name: EKG - Nurse/Tech; Complete Time: 23:34 03/05 23:32 Order name: IV Saline Lock; Complete Time: 23:53 03/05 23:32 Order name: Labs collected and sent; Complete Time: 23:53 03/05 23:32 Order name: O2 Per Protocol; Complete Time: 23:34 sd03/05 23:32 Order name: O2 Sat Monitoring; Complete Time: 23:34 sd2 03/06 00:55 Order name: Orthostatics sd2 Administered Medications: 03/05 23:53 Drug: Ketorolac IVP 15 mg Route: IVP; Site: right antecubital; as6 Disposition Summary: 03/06/23 01:12 Discharge Ordered Location: Home sd2 Problem: an acute exacerbation sd2 Symptoms: have improved sd2 Condition: Stable sd2 Diagnosis - Chest pain, unspecified sd2 - Syncope Near sd2 - Blurred Vision sd2 Followup: sd2 - With: Private Physician - When: 2 - 3 days - Reason: Recheck today's complaints, Continuance of care, Re-evaluation by your physician Discharge Instructions: - Discharge Summary Sheet sd2 - Blurred Vision, Adult sd2 - Nonspecific Chest Pain, Adult sd2 - Near-Syncope sd2 - Implantable Loop Recorder Placement sd2 Forms: - Medication Reconciliation Form sd2 - Thank You Letter sd2 - Antibiotic Education sd2 - Prescription Opioid Use sd2 - Patient Portal Instructions sd2 - Leadership Thank You Letter sd2 Signatures: Dispatcher [employer] Bernabe Cassidy RN RN as6 Christen Beltre MD MD sd2 Concepcion Ceron RN RN cm10
[2023-03-06 01:49] VITALS: O2SAT 98
[2023-03-06 01:54] VITALS: BP 115/77; TEMP 98.2
--- NOTE | 2023-03-06 13:47 | RAD REPORT ---
EXAM DESCRIPTION: RAD - Chest Single View - CLINICAL HISTORY: CHEST PAIN. COMPARISON: Chest radiograph from February 21, 2023. TECHNIQUE: Single view AP chest radiograph(s). FINDINGS: Slightly low lung volumes. No pulmonary infiltrate identified. No pleural effusion. No pne umothorax. Nonenlarged cardiomediastinal silhouette. No significant osseous abnormality. Implanted le ft chest wall lunchroom monitor. IMPRESSION: No acute cardiopulmonary abnormality identified by radiograph. Electronically signed by: Christine Jennings MD 03/06/2023 12:43 AM CDT Due to temporary technical issues with the PACS/Fluency reporting system, reports are being signed by the in house radiologists without review as a courtesy to insure prompt reporting. The interpreting radiologist is fully responsible for the content of the report.
--- NOTE | 2023-03-06 13:49 | RAD REPORT ---
EXAM DESCRIPTION: CT - Head Brain Wo Cont - 03/06/2023 6:12 am CLINICAL HISTORY: VISUAL DISTURBANCES. TECHNIQUE: Noncontrast CT through the head was performed. Axial, coronal, and sagittal reconstructio ns were created and sent to PACS. This exam was performed according to our departmental dose-optimiza tion program which includes use of Automated Exposure Control, adjustment of the mA and/or kV accordi ng to patient size and/or use of iterative reconstruction technique. COMPARISON: None. FINDINGS: The brain parenchyma appears unremarkable. There is no intra-axial or extra-axial bleed se en. There is no mass or mass effect. The ventricles are unremarkable. The orbital contents appear unr emarkable. The visualized paranasal sinuses and mastoid air cells are patent. No acute fracture is identified. IMPRESSION: No acute intracranial abnormality identified. Electronically signed by: Christine Jennings MD 03/06/2023 12:43 AM CDT Due to temporary technical issues with the PACS/Fluency reporting system, reports are being signed by the in house radiologists without review as a courtesy to insure prompt reporting. The interpreting radiologist is fully responsible for the content of the report.
--- NOTE | 2023-03-08 18:05 | EKG ---
Test Date: 2023-03-05 Test Time: 22:54:18 Estate Tax Examiner: MEASUREMENT RESULTS: Intervals: Rate: 73 VA: 180 QRSD: 82 QT: 360 QTc: 396 [place]: P: 23 VA: 180 QRS: 69 T: 45 INTERPRETIVE STATEMENTS: Normal sinus rhythm Normal ECG Compared to ECG 02/21/2023 22:16:01 No significant changes Electronically Signed On 03-08-23 17:58:50 CDT by Dutch Chao
== END 2023-03-06 01:23 | disposition home or self-care (01) ==
LOC: ER 22:24
DX: R07.9 Chest pain, unspecified (principal); R55 Syncope and collapse; H53.8 Other visual disturbances; D64.9 Anemia, unspecified; F90.9 Attention-deficit hyperactivity disorder, unspecified type; F41.9 Anxiety disorder, unspecified; F32.A Depression, unspecified; F84.0 Autistic disorder; G40.909 Epilepsy, unspecified, not intractable, without status epilepticus; Z88.0 Allergy status to penicillin; Z88.2 Allergy status to sulfonamides; Z88.3 Allergy status to other anti-infective agents; Z88.8 Allergy status to other drugs, medicaments and biological substances; Z91.040 Latex allergy status
CPT/HCPCS: 36415; 70450; 71045; 80048; 80076; 83735; 83880; 84484; 85025; 93005; 96374; 99284

== ENCOUNTER 2023-03-18 13:57 | Emergency (ER) | payer OTHER ==
--- OUTSIDE RECORDS SUMMARY | 2023-03-18 14:34 | XMS REPORT | Continuity of Care Document ---
:2005 Author Organization [facility] t Address [address] [facility] [place] [address] Care Team Providers Name Role Phone Nikita Karly Primary Care Physician CHERISE MAURICE Attending Clinician Unavailable CHERISE MAURICE Attending Clinician Unavailable YANCI MICHAEL Attending Clinician Unavailable YANCI MICHAEL Attending Clinician Unavailable JOSE CHRISTOPHER Attending Clinician Unavailable FAITH WHITE Attending Clinician Unavailable Faith White DO Attending Clinician Yanci Michael DO Attending Clinician Colleen VARMA Attending Clinician Unavailable Colleen Maddox Attending Clinician Yamil Gandara MD Attending Clinician BARRIE MALHOTRA Attending Clinician Unavailable Doctor Unassigned, [place] Attending Clinician Unavailable MIL ELKINS Attending Clinician Unavailable Severo FIELD HUMAN RESOURCES MANAGER, Mil Attending Clinician Jose Christopher MD S Attending Clinician Barrie Plascencia S Attending Clinician Jakob Mcfarland DO Attending Clinician Cem ADEN, Christiano Attending Clinician ARSALAN GRANT Attending Clinician Unavailable Arsalan Grant MD Attending Clinician SACHIN CARVAJAL Attending Clinician Unavailable Alena OLIVEROS, Sachin T Attending Clinician HANNAH VENTURA Attending Clinician Unavailable Hannah Ventura MD Attending Clinician [facility] Main Attending Clinician Unavailable Sarbjit Kee MD Attending Clinician SURY DSOUZA Attending Clinician Unavailable Miko Shirleyya S Attending Clinician CHRISTIANO PRIEST Attending Clinician Unavailable TYRON NUÑEZ Attending Clinician Unavailable Tyron Nuñez DO Attending Clinician Pankaj Garrett MD Attending Clinician PANKAJ GARRETT Attending Clinician Unavailable ANJALI WISDOM Attending Clinician Unavailable Anjali Wisdom PA-C Attending Clinician Wendy Anand Attending Clinician 1, [facility] [employer] Attending Clinician Unavailable Angel Mar, Fadumo Orozco Attending Clinician Delmar Esteban PT, Nano Attending Clinician Unavailable Beena Ramirez MD Attending Clinician BEENA RAMIREZ Attending Clinician Unavailable [facility] Attending Clinician Unavailable Parrish Rosenberg MD Attending Clinician Sheng Vasquez MD Attending Clinician SHENG VASQUEZ Attending Clinician Unavailable MG FRYE Attending Clinician Unavailable MG FRYE Attending Clinician Unavailable Yong Strauss RN, Marry Attending Clinician Unavailable PITA MALHOTRA Attending Clinician Unavailable Roscoe ADEN, Pita Rasheed Attending Clinician Lary HARE, Jose Carlos Lozada Attending Clinician Unavailable RUBEN BELCHER Attending Clinician Unavailable Ruben Mcknight Attending Clinician HANK OSHEA Attending Clinician Unavailable SHELBY SANTIAGO Attending Clinician Unavailable YAMIL GANDARA Attending Clinician Unavailable Estefania VIRAMONTES MD, Steve Quinn Attending Clinician [phone] ROBERT GLORIA Attending Clinician Unavailable Robert Gloria MD Attending Clinician JUNIOR LEAHY Attending Clinician Unavailable MEGHAN ROSARIO Attending Clinician Unavailable Meghan Rosario MD Attending Clinician Junior Leahy MD Attending Clinician Felix Morelos MD Attending Clinician [phone] Zana Thompson MD Attending Clinician Nurse, Namrata Moyer Attending Clinician Unavailable CHERISE MAURICE Admitting Clinician Unavailable Colleen VARMA Admitting Clinician Unavailable MIL ELKINS Admitting Clinician Unavailable ARSALAN GRANT Admitting Clinician Unavailable HANNAH VENTURA Admitting Clinician Unavailable Hannah Ventura MD Admitting Clinician ADELAIDA MAIN Admitting Clinician Unavailable JOSE CHRISTOPHER Admitting Clinician Unavailable TYRON NUÑEZ Admitting Clinician Unavailable CHRISTIANO PRIEST Admitting Clinician Unavailable MG FRYE Admitting Clinician Unavailable PITA MALHOTRA Admitting Clinician Unavailable RUBEN BELCHER Admitting Clinician Unavailable ROBERT GLORIA Admitting Clinician Unavailable MEGHAN ROSARIO Admitting Clinician Unavailable Payers Payer Name Policy Type Policy Number Effective Date Expiration Date Roderick DURHAM STAR [id number] 2022 KIDS 00:00:00 [facility] STAR KIDS [id number] 2022 00:00:00 Problems Condition Condition Condition Status Onset Resolution Last Treating Co mments Source Name Details Category Date Date Treatment Clinician Date Palpitatio Palpitatio Disease Active U nivers ns ns 7-13 ity of 00:00: [address] Branch Syncope Syncope Disease Active Univers and and 7-13 ity of collapse collapse 00:00: [address] Abnormal Abnormal Disease Active Last [facility] liver liver [facility] enzymes enzymes 00:00: t & Plan: Medic al [address] [place] [address] g of this note might be different [...] [facility] 25.0-29.9) 25.0-29.9) 00:00: t & Plan: [address] g of this note might be different from the original. Body mass index is 27.49 kg/m2. We discussed the importanc e of weight loss with a low carbohydr ate, high protein diet. 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 Begin Probiotic s 1-2 times per day02-27- 5 Decrease Trazadone to 100 mg qHS [...] issues resolve with above, do not start Zufuly62- 12-15 Hold zoloft; stop Buspar: possible tachycard [id number] 5 Restart Buspar 7.5 BID (Heart rate no better off it and anxiety worse) Trial reduction Risperida l to 1/2 of .25mg BID Trial Remeron 15mg HS Trial remeron 15mg yJ04-13-0 5 Raise Risperdal back to .25mg BID [...] Remeron 15mg Continue Lexapro 30mg Continue Kapvay 0.5bp9-01 Increase zoloft to 50mg after school Decrease lexapro to 20mg 016 Stop Lexapro 20 mg Increase Abilify to 10 mg daily Increase Buspar to 15 mg BID Increase Kapvay to 0.1-0.2 mg QHS 02/12/16 Start amantidin e 100mg BID Stop abilify 10mg04/29 Move Risperdal 0.25 mg dose up to give at [id number] 06-24-16 Increase Risperdas l to .5mg BID 7 Increase Amantadin e to 15ml BID (not done last time) Increase Risperdal to .75 BID Reduce abilify to [id number] Amantidin e 150mg BID Increase Zoloft to [...] different from the original. 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 clumsy Other Other Disease Active Overview: Univbritney s problems problems 01-25 Formattin ity of related to related to 00:00: g of this [place] lifestyle lifestyle 00 note Medi cherie might be Branch different from the original. 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 ICD10 Diagnosis Term Building Superintendent Utility Asthma Asthma Disease Active Overview: Univer s 01-18 Formattin ity of 00:00: g of this [place] 00 note Medical might be Branch different from the original. Mild persistan tICD10 Diagnosis Term Building Superintendent Utility Allergic Allergic Disease Active Overview: Un glen rhinitis rhinitis 01-18 Formattin ity of 00:00: g of this [place] 00 note Medical might be Branch different from the original. 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 ICD10 Diagnosis Term Building Superintendent Utility Sinusitis, Sinusitis, Disease Active Overview : Univers chronic chronic 10-13 Formattin ity o f 00:00: g of this [place] 00 note Medical might be Branch different from the original. 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 [employer]/redn ess to face and neck; run over 2 hours [place] Allergy Active [facility]17 [facility]: Medical 00 [facility] [place] Drug Active Other [facility] Allergy 8-17 reaction( [facility]ukes 00:00: s): Medical 00 [facility] /Barney Bailey on - did not tolerate ALBUTERO Allergy Active Low Palpitations 2020-[address] [facility] - [facility] 00:00: Medical 00 Center ALBUTERO DRUG Active Med Palpitations 2020-0 Un glen L INGREDI 08-18 ity of 00:00: [place] 00 Medical Branch Albutero Drug Active Palpitations 2020-[address] [facility] Allergy 08-18 xopenex [...] St 0-18 [facility] 00:[facility]: Medical 00 Center [place] Propensi Active Unknown - 2006-07 Unive rs ty to See comments 0-18 ity of adverse 00:00: [place] reaction 00 Medical s Branch PEACH DRUG Active Unknown-Cmnt 2006-07 Univ ers INGREDI 0-18 ity of 00:00: [place] 00 Medical Branch Tyrrell Drug Active 2006- Other [facility] Allergy 0-18 reaction( [facility]ukes 00:00: s): Medical 00 Unknown - Center See comments ADHESIVE Allergy Active 2006- [facility] TAPE 7-10 [facility] 00:00: Medical 00 Center Adhesive Propensi Active Unknown - Uni vers Tape ty to See comments 7-10 ity of adverse 00:00: [place] reaction 00 Medical s Branch ADHESIVE DRUG Active Unknown-Cmnt Un glen TAPE 7-10 ity of 00:00: [place] 00 Medical Branch Adhesive Drug Active Other [facility] Tape Allergy 7-10 reaction( [facility] 00:00: s): Medical 00 Unknown - Center See comments PENICILL Allergy Active High Sob 2004-[address] [facility] INS 3-28 [facility] 00:00: Medical 00 [place] LATEX Allergy Active Low Rash 2004-[address] [facility] 3-28 [facility] 00:00: Medical 00 Center Penicill Drug Active Shortness Of Goes into [facility] ins Allergy Breath 3-28 shock [facility] 00:00: Medical 00 [place] Latex Propensi Active 2004-0 Univers ty to [...] Medical s Branch Latex Drug Active Rash 2004-[address] [facility] Allergy 3-28 [facility] 00:00: Medical 00 Center Penicill Drug Active Shortness Of 2005-[address] [facility] ins Allergy Breath 3-28 shock [facility] 00:00: Medical 00 Center Family History Family Member Diagnosis Comments Start Date Stop Date Source Natural father Depression [facility] Natural mother Asthma [facility] Natural mother Heart disease [facility] Natural mother Hypertension [facility] Social History Social Habit Start Date Stop Date Quantity Comments Source History SDOH [facility] Alcohol Comment Medical C enter Gender identity Universit y [facility] Sexual orientation Univer sity of [facility] History SDOH [facility] Alcohol Std Drinks Medica Center History SDOH [facility] Alcohol Binge Medical [address] [facility] History of Social 2023-01-18 2023-01-18 Univers ity of function 00:00:00 00:00:00 [facility] Exposure to 2022-12-10 2022-12-20 Not sure [facility] SARS-CoV-2 (event) 00:00:00 15:07:00 [facility] Tobacco use and 2022-04-08 2022-04-[address] [facility] kes exposure 00:00:00 00:00:00 tobacco non-user [facility] Alcohol intake 2022-04-08 2022-04-[address] [facility] 00:00:00 00:00:00 [facility]drinker [facility] History SDOH 2022-04-08 2022-04-[address] [facility] Alcohol Frequency 00:00:00 00:00:[address] [facility] Sex Assigned At [address] [facility]es 00:00:00 00:00:[address] [facility] Smoking Status Start Date Stop Date Source Never smoked tobacco [facility] Medications Ordered Filled Start Stop Current Ordering Indication Dosage Frequency Signature Comments Components Source Medication Medication Date Date Medication? Clinician (SIG) Name Name NaCl 0.9% 2022- No 1000mL at 999 Uni vers (NS) bolus 03-10 08-23 mL/hr, ity of infusion 00:45: 01:54 1,000 mL, [place] as 1,000 mL 00 :00 IV Medical Infusion, Branch ONCE, 1 dose, On Wed03/09/23 at 1945, STAT ketorolac 2022- No 30mg 30 mg, Unive rs (TORADOL) 03-10 Slow IV ity of injection 00:30: 23:39 Push, [place] 30 mg 00 :00 ONCE, 1 Medical dose, On Branch Wed03/09/23 at 1930, THIERRY ibuprofen 2022- Yes [id number] 600mg Take 30 mL Univers 100 mg/5 mL 03-09 by mouth ity of oral 00:00: 04:59 every 8 [place] suspension 00 :00 (eight) Medica l hours for Branch 5 days. ibuprofen 2022- Yes [id number] 600mg Take 30 mL Univers 100 mg/5 mL 03-09 by mouth ity of oral 00:00: 04:59 every 8 [place] suspension 00 :00 (eight) Medica l hours for Branch 5 days. ibuprofen 2022- Yes [id number] 600mg Take 30 mL Univers 100 mg/5 mL 03-09 by mouth ity of oral 00:00: 04:59 every 8 [place] suspension 00 :00 (eight) Medica l hours for Branch 5 days. ibuprofen 2022- Yes [id number] 600mg Take 30 mL Univers 100 mg/5 mL 03-09 by mouth ity of oral 00:00: 04:59 every 8 [place] suspension 00 :00 (eight) Medica l hours for Branch 5 days. midazolam Yes [id number] 1{spray Use 1 Univers (NAYZILAM) 8-21 } [place] in 1 ity of 5 mg/spray 00:00: nostril [place] (0.1 mL) 00 SEE-INSTRU Medic al Sully CTIONS. 1 Branch spray in ONE nostril for seizure lasting more than 3 minutes or for seizure cluster; may repeat dose in 10 minutes in other nostril if needed (do not repeat if the patient is having trouble breathing or excessive sedation). Do not exceed 2 sprays for single episode. Do not use for more than one episode in a 3-day span or more than 5 episodes in a month. midazolam Yes [id number] 1{spray Use 1 Univers (NAYZILAM) 8-21 } [place] 1 ity of 5 mg/spray 00:00: nostril [place] (0.1 mL) 00 SEE-INSTRU Medic al Sully CTIONS. 1 Branch spray in ONE nostril for seizure lasting more than 3 minutes or for seizure cluster; may repeat dose in 10 minutes in other nostril if needed (do not repeat if the patient is having trouble breathing or excessive sedation). Do not exceed 2 sprays for single episode. Do not use for more than one episode in a 3-day span or more than 5 episodes in a month. midazolam 0 Yes [id number] 1{spray Use 1 Univers (NAYZILAM) 8-21 } [place] in 1 ity of 5 mg/spray 00:00: nostril [place] (0.1 mL) 00 SEE-INSTRU Medic al Sully CTIONS. 1 Branch spray in ONE nostril for seizure lasting more than 3 minutes or for seizure cluster; may repeat dose in 10 minutes in other nostril if needed (do not repeat if the patient is having trouble breathing or excessive sedation). Do not exceed 2 sprays for single episode. Do not use for more than one episode in a 3-day span or more than 5 episodes in a month. midazolam Yes [id number] 1{spray Use 1 Univers (NAYZILAM) 8-21 } [place] in 1 ity of 5 mg/spray 00:00: nostril [place] (0.1 mL) 00 SEE-INSTRU Medic al Sully CTIONS. 1 Branch spray in ONE nostril for seizure lasting more than 3 minutes or for seizure cluster; may repeat dose in 10 minutes in other nostril if needed (do not repeat if the patient is having trouble breathing or excessive sedation). Do not exceed 2 sprays for single episode. Do not use for more than one episode in a 3-day span or more than 5 episodes in a month. midazolam 0 Yes [id number] 1{spray Use 1 Univers (NAYZILAM) 8-21 } [place] in 1 ity of 5 mg/spray 00:00: nostril [place] (0.1 mL) 00 SEE-INSTRU Medic al Sully CTIONS. 1 Branch spray in ONE nostril for seizure lasting more than 3 minutes or for seizure cluster; may repeat dose in 10 minutes in other nostril if needed (do not repeat if the patient is having trouble breathing or excessive sedation). Do not exceed 2 sprays for single episode. Do not use for more than one episode in a 3-day span or more than 5 episodes in a month. midazolam Yes [id number] 1{spray Use 1 Univers (NAYZILAM) 8-21 } [place] in 1 ity of 5 mg/spray 00:00: nostril [place] (0.1 mL) 00 SEE-INSTRU Medic al Sully CTIONS. 1 Branch spray in ONE nostril for seizure lasting more than 3 minutes or for seizure cluster; may repeat dose in 10 minutes in other nostril if needed (do not repeat if the patient is having trouble breathing or excessive sedation). Do not exceed 2 sprays for single episode. Do not use for more than one episode in a 3-day span or more than 5 episodes in a month. midazolam Yes [id number] 1{spray Use 1 Univers (NAYZILAM) 8-21 } [place] in 1 ity of 5 mg/spray 00:00: nostril [place] (0.1 mL) 00 SEE-INSTRU Medic al Sully CTIONS. 1 Branch spray in ONE nostril for seizure lasting more than 3 minutes or for seizure cluster; may repeat dose in 10 minutes in other nostril if needed (do not repeat if the patient is having trouble breathing or excessive sedation). Do not exceed 2 sprays for single episode. Do not use for more than one episode in a 3-day span or more than 5 episodes in a month. midazolam Yes [id number] 1{spray Use 1 Univers (NAYZILAM) 8-21 } [place] in 1 ity of 5 mg/spray 00:00: nostril [place] (0.1 mL) 00 SEE-INSTRU Medic al Sully CTIONS. 1 Branch spray in ONE nostril for seizure lasting more than 3 minutes or for seizure cluster; may repeat dose in 10 minutes in other nostril if needed (do not repeat if the patient is having trouble breathing or excessive sedation). Do not exceed 2 sprays for single episode. Do not use for more than one episode in a 3-day span or more than 5 episodes in a month. midazolam Yes [id number] 1{spray Use 1 Univers (NAYZILAM) 8-21 } [place] in 1 ity of 5 mg/spray 00:00: nostril [place] (0.1 mL) 00 SEE-INSTRU Medic al Sully CTIONS. 1 Branch spray in ONE nostril for seizure lasting more than 3 minutes or for seizure cluster; may repeat dose in 10 minutes in other nostril if needed (do not repeat if the patient is having trouble breathing or excessive sedation). Do not exceed 2 sprays for single episode. Do not use for more than one episode in a 3-day span or more than 5 episodes in a month. midazolam 2022- Yes [id number] 1{spray Use 1 Univers (NAYZILAM) 8-21 } [place] in 1 ity of 5 mg/spray 00:00: nostril [place] (0.1 mL) 00 SEE-INSTRU Medic al Sully CTIONS. 1 Branch spray in ONE nostril for seizure lasting more than 3 minutes or for seizure cluster; may repeat dose in 10 minutes in other nostril if needed (do not repeat if the patient is having trouble breathing or excessive sedation). Do not exceed 2 sprays for single episode. Do not use for more than one episode in a 3-day span or more than 5 episodes in a month. ketorolac 2022- No 30mg 30 mg, Unive rs (TORADOL) 03-03 Slow IV ity of injection 21:00: 20:11 Push, [place] 30 mg 00 :00 ONCE, 1 Medical dose, On Branch Wed03/03/23 at 1600, THIERRY ceFAZolin 0 2022- No ONCE INTRA U nivers (ANCEF) 02-23 PROCEDURE, ity o f injection 14:08: 14:14 Starting [place] as 25 :20 on [facility] Medical 02/23/23 at Branch 0908, Until Wed02/23/23 at 0914, THIERRY, CV Intraproce dure ceFAZolin 2022- No ONCE INTRA U nivers (ANCEF) 02-23 PROCEDURE, ity o f injection 14:08: 14:14 Starting [place] as 25 :20 on Wed Medical 02/23/23 at Branch 0908, Until Wed02/23/23 at 0914, THIERRY, CV Intraproce dure lidocaine 2022- No ONCE INTRA U nivers 1% (PF) 02-23 PROCEDURE, ity o f (XYLOCAINE) 14:06: 14:14 Starting [place] injection 04 :20 on Wed Medical 02/23/23 at Branch 0906, Until Wed02/23/23 at 0914, Routine, CV Intraproce dure lidocaine 2022-0 2022- No ONCE INTRA U nivers 1% (PF) 02-23 PROCEDURE, ity o f (XYLOCAINE) 14:06: 14:14 Starting [place] injection 04 :20 on Wed Medical 02/23/23 at Branch 0906, Until Wed02/23/23 at 0914, Routine, CV Intraproce dure triamcinolo Yes Apply to Un [place]en [place] 0.1% in 02-23 affected ity o f aquaphor 11:06: area(s). [place] ([address] ) ointment Branch ARIPiprazol Yes by [employer] s e (ABILIFY 02-[address] [facility]) 11:06: lar route [place] as 300 mg sers 27 once every Me dical month. Branch cariprazine Yes 1{capsu Take 1 U nivers (VRAYLAR) 3 8-08 le} capsule by it y of mg Cap 11:06: mouth in [place] [address] the Medical morning Branch and 1 capsule in the evening. triamcinolo Yes Apply to Un glen ne 0.1% in 02-23 affected ity o f aquaphor 11:06: area(s). [place] ([address] ) ointment Branch ARIPiprazol Yes by Univer s e (ABILIFY 02-[address] [facility]) 11:06: lar route [place] as 300 mg sers 27 once every Me dical month. Branch cariprazine Yes 1{capsu Take 1 U nivers (VRAYLAR) 3 8-08 le} capsule by it y of mg Cap 11:06: mouth in [place] [address] the Medical morning Branch and 1 capsule in the evening. triamcinolo Yes Apply to Un glen ne 0.1% in 808 affected ity o f aquaphor 11:06: area(s). [place] (COMPOUNDED 27 Medical ) ointment Branch ARIPiprazol 2022-0 Yes by Univer s e (ABILIFY 02-[address] [facility]) 11:06: lar route [place] as 300 mg sers 27 once every Me dical month. Branch cariprazine 2022-0 Yes 1{capsu Take 1 U nivers (VRAYLAR) 3 8-08 le} capsule by it y of mg Cap 11:06: mouth in [place] [address] the Medical morning Branch and 1 capsule in the evening. triamcinolo 2022-0 Yes Apply to Un glen ne 0.1% in 02-23 affected ity o f aquaphor 11:06: area(s). [place] (COMPOUNDED 27 Medical ) ointment Branch ARIPiprazol 2022- Yes by Univer s e (ABILIFY 02-[address] [facility]) 11:06: lar route [place] as 300 mg sers 27 once every Me dical month. Branch cariprazine 2022-0 Yes 1{capsu Take 1 U nivers (VRAYLAR) 3 8-08 le} capsule by it y of mg Cap 11:06: mouth in [place] [address] the Medical morning Branch and 1 capsule in the evening. triamcinolo 2022-0 Yes Apply to Un glen ne 0.1% in 08 affected ity o f aquaphor 11:06: area(s). [place] (COMPOUNDED 27 Medical ) ointment Branch ARIPiprazol 2022-0 Yes by Univer s e (ABILIFY 02-[address] [facility]) 11:06: lar route [place] as 300 mg sers 27 once every Me dical month. Branch cariprazine 2022-0 Yes 1{capsu Take 1 U nivers (VRAYLAR) 3 8-08 le} capsule by it y of mg Cap 11:06: mouth in [place] [address] the Medical morning Branch and 1 capsule in the evening. triamcinolo 2022-0 Yes Apply to Un glen ne 0.1% in 808 affected ity o f aquaphor 11:06: area(s). [place] (COMPOUNDED Medical ) ointment Branch ARIPiprazol 2022-0 Yes by Univer s e (ABILIFY 8-[address] [facility]) 11:06: lar route [place] as 300 mg sers 27 once every Me dical month. Branch cariprazine 2022-0 Yes 1{capsu Take 1 U nivers (VRAYLAR) 3 8-08 le} capsule by it y of mg Cap 11:06: mouth in [place] [address] the Medical morning Branch and 1 capsule in the evening. triamcinolo 2022-0 Yes Apply to Un glen ne 0.1% in 8-08 affected ity o f aquaphor 11:06: area(s). [place] ([facility] 27 Medical ) ointment Branch ARIPiprazol 2022-0 Yes by Univer s e (ABILIFY 8-[address] [facility]) 11:06: lar route [place] as 300 mg sers 27 once every Me dical month. Branch cariprazine 2022-0 Yes 1{capsu Take 1 U nivers (VRAYLAR) 3 8-08 le} capsule by it y of mg Cap 11:06: mouth in [place] [address] the Medical morning Branch and 1 capsule in the evening. triamcinolo 2022-0 Yes Apply to [place] 0.1% in 8-08 affected ity o f aquaphor 11:06: area(s). [place] (COMPOUND[facility] Medical ) ointment Branch ARIPiprazol 2022-0 Yes by [facility] (ABILIFY 8 [facility]) 11:06: lar route [place] as 300 mg sers 27 once every Me dical month. Branch cariprazine 2022-0 Yes 1{capsu Take 1 U nivers (VRAYLAR) 3 8-08 le} capsule by it y of mg Cap 11:06: mouth in [place] [address] the Medical morning Branch and 1 capsule in the evening. triamcinolo 2022-0 Yes Apply to [place] 0.1% in 8-08 affected ity o f aquaphor 11:06: area(s). [place] (COMPOUNDED 27 Medical ) ointment Branch ARIPiprazol 2022-0 Yes by Univer s e (ABILIFY 8-08 Intramuscu ity of [facility]) 11:06: lar route [place] 300 mg sers 27 once every Me dical month. Branch cariprazine 2022-0 Yes 1{capsu Take 1 U nivers (VRAYLAR) 3 8-08 le} capsule by it y of mg Cap 11:06: mouth in [place] [address] the Medical morning Branch and 1 capsule in the evening. triamcinolo 2022-0 Yes Apply to [place] 0.1% in 8-08 affected ity o f aquaphor 11:06: area(s). [place] (COMPOUNDED 27 Medical ) ointment Branch ARIPiprazol 2022-0 Yes by Univer s e (ABILIFY 8- Intramuscu ity of [place]) 11:06: lar route [place] 300 mg sers 27 once every Me dical month. Branch cariprazine 2022-0 Yes 1{capsu Take 1 U nivers (VRAYLAR) 3 8-08 le} capsule by it y of mg Cap 11:06: mouth in [place] [address] the Medical morning Branch and 1 capsule in the evening. triamcinolo 2022-0 Yes Apply to [place] 0.1% in 8-08 affected ity o f aquaphor 11:06: area(s). [place] (COMPOUNDED 27 Medical ) ointment Branch ARIPiprazol 2022-0 Yes by [employer] s [employer] (ABILIFY 8 Intramuscu ity of [place]) 11:06: lar route [place] as 300 mg sers 27 once every Me dical month. Branch cariprazine 2022-0 Yes 1{capsu Take 1 U nivers (VRAYLAR) 3 8-08 le} capsule by it y of mg Cap 11:06: mouth in [place] [address] the Medical morning Branch and 1 capsule in the evening. triamcinolo 2022-0 Yes Apply to [facility] [place] 0.1% in 8-08 affected ity o f aquaphor 11:06: area(s). [place] (COMPOUNDED 27 Medical ) ointment Branch ARIPiprazol 2022-0 Yes by Univer s e (ABILIFY 8-08 Intramuscu ity of [place]) 11:06: lar route [place] 300 mg sers 27 once every Me dical month. Branch cariprazine 2022-0 Yes 1{capsu Take 1 U nivers (VRAYLAR) 3 8-08 le} capsule by it y of mg Cap 11:06: mouth in [place] [address] the Medical morning Branch and 1 capsule in the evening. triamcinolo 2022-0 Yes Apply to [place] 0.1% in 8-08 affected ity o f aquaphor 11:06: area(s). [place] (COMPOUNDED 27 Medical ) ointment Branch ARIPiprazol 2022-0 Yes by Univer s e (ABILIFY [address] [facility]) 11:06: lar route [place] 300 mg sers 27 once every Me dical month. Branch cariprazine 2022-0 Yes 1{capsu Take 1 U nivers (VRAYLAR) 3 8-08 le} capsule by it y of mg Cap 11:06: mouth in [place] [address] the Medical morning Branch and 1 capsule in the evening. triamcinolo 2022-0 Yes Apply to [place] 0.1% in 8-08 affected ity o f aquaphor 11:06: area(s). [place] (COMPOUNDED 27 Medical ) ointment Branch ARIPiprazol 2022-0 Yes by Univer s e (ABILIFY 8 [facility]) 11:06: lar route [place] 300 mg sers 27 once every Me dical month. Branch cariprazine 2022-0 Yes 1{capsu Take 1 U nivers (VRAYLAR) 3 8-08 le} capsule by it y of mg Cap 11:06: mouth in [place] [address] the Medical morning Branch and 1 capsule in the evening. triamcinolo 2022-0 Yes Apply to [place] 0.1% in 8-08 affected ity o f aquaphor 11:06: area(s). [place] (COMPOUNDED 27 Medical ) ointment Branch ARIPiprazol 2022-0 Yes by Univer s e (ABILIFY 8 [facility]) 11:06: lar route [place] 300 mg sers 27 once every Me dical month. Branch cariprazine 2022-0 Yes 1{capsu Take 1 U nivers (VRAYLAR) 3 8-08 le} capsule by it y of mg Cap 11:06: mouth in [place] [address] the Medical morning Branch and 1 capsule in the evening. triamcinolo 2022-0 Yes Apply to [place] 0.1% in 8-08 affected ity o f aquaphor 11:06: area(s). [place] (COMPOUNDED 27 Medical ) ointment Branch ARIPiprazol 2022-0 Yes by Univer s e (ABILIFY 8 [facility] 11:06: lar route [place] as 300 mg sers 27 once every Me dical month. Branch cariprazine 2022-0 Yes 1{capsu Take 1 U nivers (VRAYLAR) 3 8-08 le} capsule by it y of mg Cap 11:06: mouth in [place] [address] the Medical morning Branch and 1 capsule in the evening. triamcinolo 2022-0 Yes Apply to [place] 0.1% in 808 affected ity o f aquaphor 11:06: area(s). [place] (COMPOUNDED 27 Medical ) ointment Branch ARIPiprazol 2022-0 Yes by [employer] (ABILIFY 02-23 Intramuscu ity of [place]) 11:06: lar route [place] 300 mg sers 27 once every Me dical month. Branch cariprazine 2022-0 Yes 1{capsu Take 1 U nivers (VRAYLAR) 3 8-08 le} capsule by it y of mg Cap 11:06: mouth in [place] [address] the Medical morning Branch and 1 capsule in the evening. triamcinolo 2022-0 Yes Apply to [place] 0.1% in 8-08 affected ity o f aquaphor 11:06: area(s). [place] (COMPOUNDED 27 Medical ) ointment Branch ARIPiprazol 2022-0 Yes by Univer s e (ABILIFY 8 Intramuscu ity of [place]) 11:06: lar route [place] as 300 mg sers 27 once every Me dical month. Branch cariprazine 2022-0 Yes 1{capsu Take 1 U nivers (VRAYLAR) 3 8-08 le} capsule by it y of mg Cap 11:06: mouth in [place] [address] the Medical morning Branch and 1 capsule in the evening. triamcinolo 2022-0 Yes Apply to [place] 0.1% in 8-08 affected ity o f aquaphor 11:06: area(s). [place] (COMPOUNDED 27 Medical ) ointment Branch ARIPiprazol 2022-0 Yes by Univer s e (ABILIFY 8-08 Intramuscu ity of [place]) 11:06: lar route [place] 300 mg sers 27 once every Me dical month. Branch cariprazine 2022-0 Yes 1{capsu Take 1 U nivers (VRAYLAR) 3 8-08 le} capsule by it y of mg Cap 11:06: mouth in [place] [address] the Medical morning Branch and 1 capsule in the evening. triamcinolo 2022-0 Yes Apply to [place] 0.1% in 808 affected ity o f aquaphor 11:06: area(s). [place] (COMPOUNDED 27 Medical ) ointment Branch ARIPiprazol 2022-0 Yes by Univer s e (ABILIFY 8-08 Intramuscu ity of [place]) 11:06: lar route [place] as 300 mg sers 27 once every Me dical month. Branch cariprazine 2022-0 Yes 1{capsu Take 1 U nivers (VRAYLAR) 3 8-08 le} capsule by it y of mg Cap 11:06: mouth in [place] [address] the Medical morning Branch and 1 capsule in the evening. triamcinolo 2022-0 Yes Apply to [place] 0.1% in 808 affected ity o f aquaphor 11:06: area(s). [place] (COMPOUNDED 27 Medical ) ointment Branch ARIPiprazol 2022-0 Yes by Univer s e (ABILIFY 8-08 Intramuscu ity of [place]) 11:06: lar route [place] as 300 mg sers 27 once every Me dical month. Branch cariprazine 2022-0 Yes 1{capsu Take 1 U nivers (VRAYLAR) 3 8-08 le} capsule by it y of mg Cap 11:06: mouth in [place] 27 the Medical morning Branch and 1 capsule in the evening. triamcinolo 3-0 Yes Apply to [place] 0.1% in 8-08 affected ity o f aquaphor 11:06: area(s). [place] (COMPOUNDED 27 Medical ) ointment Branch ARIPiprazol 2022-0 Yes by Univer s e (ABILIFY [address] [facility]) 11:06: lar route [place] as 300 mg sers 27 once every Me dical month. Branch cariprazine 2022-0 Yes 1{capsu Take 1 U nivers (VRAYLAR) 3 8-08 le} capsule by it y of mg Cap 11:06: mouth in [place] 27 the Medical morning Branch and 1 capsule in the evening. triamcinolo 2022-0 Yes Apply to [place] 0.1% in 808 affected ity o f aquaphor 11:06: area(s). [place] ([facility] 27 [facility] ) ointment Branch ARIPiprazol 2022-0 Yes by Univer s e (ABILIFY 8- Intramuscu ity of [facility]) 11:06: lar route [place] as 300 mg sers 27 once every Me dical month. Branch cariprazine 2022-0 Yes 1{capsu Take 1 U nivers (VRAYLAR) 3 8-08 le} capsule by it y of mg Cap 11:06: mouth in [place] [address] the Medical morning Branch and 1 capsule in the evening. triamcinolo 2022-0 Yes Apply to [place] 0.1% in 808 affected ity o f aquaphor 11:06: area(s). [place] (COMPOUNDED 27 Medical ) ointment Branch ARIPiprazol 2022-0 Yes by Univer s e (ABILIFY [address] [address] [facility]) 11:06: lar route [place] as 300 mg sers 27 once every Me dical month. Branch cariprazine 2022-0 Yes 1{capsu Take 1 U nivers (VRAYLAR) 3 8-08 le} capsule by it y of mg Cap 11:06: mouth in [place] 27 the Medical morning Branch and 1 capsule in the evening. triamcinolo 2023-0 Yes Apply to [place] 0.1% in 8-08 affected ity o f aquaphor 11:06: area(s). [place] (COMPOUNDED 27 Medical ) ointment Branch ARIPiprazol Yes by [place] (ABILIFY 02-23 Intramuscu ity of [place]) 11:06: lar route [place] as 300 mg sers 27 once every Me dical month. Branch cariprazine Yes 1{capsu Take 1 U nivers (VRAYLAR) 3 08 le} capsule by it y of mg Cap 11:06: mouth in [place] 27 the Medical morning Branch and 1 capsule in the evening. SUMAtriptan 0 Yes [id number] 5mg Use 1 U nivers 5 8-08 [place] in ity of mg/actuatio 00:00: each [place] n nasal 00 nostril as Medica l spray needed for Branch headache symptoms. May repeat in 2 hours if needed. Max of 4 sprays per 24 hours SUMAtriptan 2022-0 Yes [id number] 5mg Use 1 U nivers 5 8-08 [place] in ity of mg/actuatio 00:00: each [place] n nasal 00 nostril as Medica l spray needed for Branch headache symptoms. May repeat in 2 hours if needed. Max of 4 sprays per 24 hours SUMAtriptan 2022-0 Yes [id number] 5mg Use 1 U nivers 5 8-08 [place] in ity of mg/actuatio 00:00: each [place] n nasal 00 nostril as Medica l spray needed for Branch headache symptoms. May repeat in 2 hours if needed. Max of 4 sprays per 24 hours SUMAtriptan 2022-0 Yes [id number] 5mg Use 1 U nivers 5 8-08 [place] in ity of mg/actuatio 00:00: each [place] n nasal 00 nostril as Medica l spray needed for Branch headache symptoms. May repeat in 2 hours if needed. Max of 4 sprays per 24 hours SUMAtriptan 2022-0 Yes [id number] 5mg Use 1 U nivers 5 8-08 [place] in ity of mg/actuatio 00:00: each [place] n nasal 00 nostril as Medica l spray needed for Branch headache symptoms. May repeat in 2 hours if needed. Max of 4 sprays per 24 hours SUMAtriptan 2023-0 Yes [id number] 5mg Use 1 U nivers 5 8-08 [place] in ity of mg/actuatio 00:00: each [place] n nasal 00 nostril as Medica l spray needed for Branch headache symptoms. May repeat in 2 hours if needed. Max of 4 sprays per 24 hours SUMAtriptan 2023-0 Yes [id number] 5mg Use 1 U nivers 5 8-08 [place] in ity of mg/actuatio 00:00: each [place] n nasal 00 nostril as Medica l spray needed for Branch headache symptoms. May repeat in 2 hours if needed. Max of 4 sprays per 24 hours SUMAtriptan 3-0 Yes [id number] 5mg Use 1 U nivers 5 8-08 [place] in ity of mg/actuatio 00:00: each [place] n nasal 00 nostril as Medica l spray needed for Branch headache symptoms. May repeat in 2 hours if needed. Max of 4 sprays per 24 hours SUMAtriptan 3-0 Yes [id number] 5mg Use 1 U [facility]ivers 5 8-08 [place] in ity of mg/actuatio 00:00: each [place] n nasal 00 nostril as Medica l spray needed for Branch headache symptoms. May repeat in 2 hours if needed. Max of 4 sprays per 24 hours SUMAtriptan 3-0 Yes [id number] 5mg Use 1 U nivers 5 8-08 [place] in ity of mg/actuatio 00:00: each [place] n nasal 00 nostril as Medica l spray needed for Branch headache symptoms. May repeat in 2 hours if needed. Max of 4 sprays per 24 hours SUMAtriptan 2023-0 Yes [id number] 5mg Use 1 U nivers 5 8-08 [place] in ity of mg/actuatio 00:00: each [place] n nasal 00 nostril as Medica l spray needed for Branch headache symptoms. May repeat in 2 hours if needed. Max of 4 sprays per 24 hours SUMAtriptan 2023-0 Yes [id number] 5mg Use 1 U nivers 5 8-08 [place] in ity of mg/actuatio 00:00: each [place] n nasal 00 nostril as Medica l spray needed for Branch headache symptoms. May repeat in 2 hours if needed. Max of 4 sprays per 24 hours SUMAtriptan 2023-0 Yes [id number] 5mg Use 1 U nivers 5 8-08 [place] in ity of mg/actuatio 00:00: each [place] n nasal 00 nostril as Medica l spray needed for Branch headache symptoms. May repeat in 2 hours if needed. Max of 4 sprays per 24 hours SUMAtriptan 2023-0 Yes [id number] 5mg Use 1 U nivers 5 8-08 [place] in ity of mg/actuatio 00:00: each [place] n nasal 00 nostril as Medica l spray needed for Branch headache symptoms. May repeat in 2 hours if needed. Max of 4 sprays per 24 hours SUMAtriptan 2023-0 Yes [id number] 5mg Use 1 U nivers 5 8-08 [place] in ity of mg/actuatio 00:00: each [place] n nasal 00 nostril as Medica l spray needed for Branch headache symptoms. May repeat in 2 hours if needed. Max of 4 sprays per 24 hours SUMAtriptan 2023-0 Yes [id number] 5mg Use 1 U [facility]ivers 5 8-08 [place] in ity of mg/actuatio 00:00: each [place] n nasal 00 nostril as Medica l spray needed for Branch headache symptoms. May repeat in 2 hours if needed. Max of 4 sprays per 24 hours SUMAtriptan 2023-0 Yes [id number] 5mg Use 1 U nivers 5 8-08 [place] in ity of mg/actuatio 00:00: each [place] n nasal 00 nostril as Medica l spray needed for Branch headache symptoms. May repeat in 2 hours if needed. Max of 4 sprays per 24 hours SUMAtriptan 2023-0 Yes [id number] 5mg Use 1 U nivers 5 8-08 [place] in ity of mg/actuatio 00:00: each [place] n nasal 00 nostril as Medica l spray needed for Branch headache symptoms. May repeat in 2 hours if needed. Max of 4 sprays per 24 hours SUMAtriptan 2023-0 Yes [id number] 5mg Use 1 U nivers 5 8-08 [place] in ity of mg/actuatio 00:00: each [place] n nasal 00 nostril as Medica l spray needed for Branch headache symptoms. May repeat in 2 hours if needed. Max of 4 sprays per 24 hours SUMAtriptan Yes [id number] 5mg Use 1 U nivers 5 08 [place] in ity of mg/actuatio 00:00: each [place] n nasal 00 nostril as Medica l spray needed for Branch headache symptoms. May repeat in 2 hours if needed. Max of 4 sprays per 24 hours doxycycline 2022- Yes [id number] 100mg Take 1 [facility] hyclate 100 02-23 capsule by i ty of mg capsule 00:00: 04:59 mouth [place] 00 :00 every 12 Medical (twelve) Branch hours for 5 days. doxycycline 2022- Yes [id number] 100mg Take 1 [facility] hyclate 100 02-23 capsule by i ty of mg capsule 00:00: 04:59 mouth [place] 00 :00 every 12 Medical (twelve) Branch hours for 5 days. doxycycline 2022- Yes [id number] 100mg Take 1 [facility] hyclate 100 02-23 [...] SPRY 27 :00 Medical Branch levalbutero Yes [id number] 2{puff} Inhale 2 Univers l (XOPENEX 8 Puffs ity of HFA) 45 00:00: every 6 [place] mcg/actuati 00 (six) Medical on inhaler hours as Branc h needed for Wheezing. INHALE 2 PUFFS BY MOUTH EVERY 6 HOURS NEEDED BEFORE EXERCISE OR FOR WHEEZING/S HORTNESS OF BREATH. levalbutero 0 Yes [id number] 2{puff} Inhale 2 Univers l (XOPENEX 8-07 Puffs ity of HFA) 45 00:00: every 6 [place] mcg/actuati 00 (six) Medical on inhaler hours as Branc h needed for Wheezing. INHALE 2 PUFFS BY MOUTH EVERY 6 HOURS NEEDED BEFORE EXERCISE OR FOR WHEEZING/S HORTNESS OF BREATH. levalbutero Yes [id number] 2{puff} Inhale 2 Univers l (XOPENEX 8-07 Puffs ity of HFA) 45 00:00: every 6 [place] mcg/actuati 00 (six) Medical on inhaler hours as Branc h needed for Wheezing. INHALE 2 PUFFS BY MOUTH EVERY 6 HOURS NEEDED BEFORE EXERCISE OR FOR WHEEZING/S HORTNESS OF BREATH. SUMAtriptan 0 Yes [id number] 1 spray in Univers 5 8-07 each ity of mg/actuatio 00:00: nostril as [place] n nasal 00 needed for Medica l spray migraine. Branch If symptoms persist or return, may repeat dose after =1 hour. Do not exceed 4 sprays total in any 24-hour period. levalbutero Yes [id number] 2{puff} Inhale 2 Univers l (XOPENEX 8-07 Puffs ity of HFA) 45 00:00: every 6 [place] mcg/actuati 00 (six) Medical on inhaler hours as Branc h needed for Wheezing. INHALE 2 PUFFS BY MOUTH EVERY 6 HOURS NEEDED BEFORE EXERCISE OR FOR WHEEZING/S HORTNESS OF BREATH. levalbutero 0 Yes [id number] 2{puff} Inhale 2 Univers l (XOPENEX 8-07 Puffs ity of HFA) 45 00:00: every 6 [place] mcg/actuati 00 (six) Medical on inhaler hours as Branc h needed for Wheezing. INHALE 2 PUFFS BY MOUTH EVERY 6 HOURS NEEDED BEFORE EXERCISE OR FOR WHEEZING/S HORTNESS OF BREATH. levalbutero 0 Yes [id number] 2{puff} Inhale 2 Univers l (XOPENEX 8-07 Puffs ity of HFA) 45 00:00: every 6 [place] mcg/actuati 00 (six) Medical on inhaler hours as Branc h needed for Wheezing. INHALE 2 PUFFS BY MOUTH EVERY 6 HOURS NEEDED BEFORE EXERCISE OR FOR WHEEZING/S HORTNESS OF BREATH. levalbutero 0 Yes [id number] 2{puff} Inhale 2 Univers l (XOPENEX 8-07 Puffs ity of HFA) 45 00:00: every 6 [place] mcg/actuati 00 (six) Medical on inhaler hours as Branc h needed for Wheezing. INHALE 2 PUFFS BY MOUTH EVERY 6 HOURS NEEDED BEFORE EXERCISE OR FOR WHEEZING/S HORTNESS OF BREATH. levalbutero 2022-0 Yes [id number] 2{puff} Inhale 2 Univers l (XOPENEX 8-07 Puffs ity of HFA) 45 00:00: every 6 [place] mcg/actuati 00 (six) Medical on inhaler hours as Branc h needed for Wheezing. INHALE 2 PUFFS BY MOUTH EVERY 6 HOURS NEEDED BEFORE EXERCISE OR FOR WHEEZING/S HORTNESS OF BREATH. levalbutero 0 Yes [id number] 2{puff} Inhale 2 Univers l (XOPENEX 8-07 Puffs ity of HFA) 45 00:00: every 6 [place] mcg/actuati 00 (six) Medical on inhaler hours as Branc h needed for Wheezing. INHALE 2 PUFFS BY MOUTH EVERY 6 HOURS NEEDED BEFORE EXERCISE OR FOR WHEEZING/S HORTNESS OF BREATH. levalbutero 2022-0 Yes [id number] 2{puff} Inhale 2 Univers l (XOPENEX 8-07 Puffs ity of HFA) 45 00:00: every 6 [place] mcg/actuati 00 (six) Medical on inhaler hours as Branc h needed for Wheezing. INHALE 2 PUFFS BY MOUTH EVERY 6 HOURS NEEDED BEFORE EXERCISE OR FOR WHEEZING/S HORTNESS OF BREATH. levalbutero 0 Yes [id number] 2{puff} Inhale 2 Univers l (XOPENEX 8-07 Puffs ity of HFA) 45 00:00: every 6 [place] mcg/actuati 00 (six) Medical on inhaler hours as Branc h needed for Wheezing. INHALE 2 PUFFS BY MOUTH EVERY 6 HOURS NEEDED BEFORE EXERCISE OR FOR WHEEZING/S HORTNESS OF BREATH. levalbutero Yes [id number] 2{puff} Inhale 2 Univers l (XOPENEX 8-07 Puffs ity of HFA) 45 00:00: every 6 [place] mcg/actuati 00 (six) Medical on inhaler hours as Branc h needed for Wheezing. INHALE 2 PUFFS BY MOUTH EVERY 6 HOURS NEEDED BEFORE EXERCISE OR FOR WHEEZING/S HORTNESS OF BREATH. levalbutero Yes [id number] 2{puff} Inhale 2 Univers l (XOPENEX 8-07 Puffs ity of HFA) 45 00:00: every 6 [place] mcg/actuati 00 (six) Medical on inhaler hours as Branc h needed for Wheezing. INHALE 2 PUFFS BY MOUTH EVERY 6 HOURS NEEDED BEFORE EXERCISE OR FOR WHEEZING/S HORTNESS OF BREATH. levalbutero Yes [id number] 2{puff} Inhale 2 Univers l (XOPENEX 8-07 Puffs ity of HFA) 45 00:00: every 6 [place] mcg/actuati 00 (six) Medical on inhaler hours as Branc h needed for Wheezing. INHALE 2 PUFFS BY MOUTH EVERY 6 HOURS NEEDED BEFORE EXERCISE OR FOR WHEEZING/S HORTNESS OF BREATH. levalbutero Yes [id number] 2{puff} Inhale 2 Univers l (XOPENEX 8-07 Puffs ity of HFA) 45 00:00: every 6 [place] mcg/actuati 00 (six) Medical on inhaler hours as Branc h needed for Wheezing. INHALE 2 PUFFS BY MOUTH EVERY 6 HOURS NEEDED BEFORE EXERCISE OR FOR WHEEZING/S HORTNESS OF BREATH. levalbutero 0 Yes [id number] 2{puff} Inhale 2 Univers l (XOPENEX 8-07 Puffs ity of HFA) 45 00:00: every 6 [place] mcg/actuati 00 (six) Medical on inhaler hours as Branc h needed for Wheezing. INHALE 2 PUFFS BY MOUTH EVERY 6 HOURS NEEDED BEFORE EXERCISE OR FOR WHEEZING/S HORTNESS OF BREATH. levalbutero 0 Yes [id number] 2{puff} Inhale 2 Univers l (XOPENEX 8-07 Puffs ity of HFA) 45 00:00: every 6 [place] mcg/actuati 00 (six) Medical on inhaler hours as Branc h needed for Wheezing. INHALE 2 PUFFS BY MOUTH EVERY 6 HOURS NEEDED BEFORE EXERCISE OR FOR WHEEZING/S HORTNESS OF BREATH. levalbutero 0 Yes [id number] 2{puff} Inhale 2 Univers l (XOPENEX 8-07 Puffs ity of HFA) 45 00:00: every 6 [place] mcg/actuati 00 (six) Medical on inhaler hours as Branc h needed for Wheezing. INHALE 2 PUFFS BY MOUTH EVERY 6 HOURS NEEDED BEFORE EXERCISE OR FOR WHEEZING/S HORTNESS OF BREATH. levalbutero 0 Yes [id number] 2{puff} Inhale 2 Univers l (XOPENEX 8-07 Puffs ity of HFA) 45 00:00: every 6 [place] mcg/actuati 00 (six) Medical on inhaler hours as Branc h needed for Wheezing. INHALE 2 PUFFS BY MOUTH EVERY 6 HOURS NEEDED BEFORE EXERCISE OR FOR WHEEZING/S HORTNESS OF BREATH. levalbutero 0 Yes [id number] 2{puff} Inhale 2 Univers l (XOPENEX 8-07 Puffs ity of HFA) 45 00:00: every 6 [place] mcg/actuati 00 (six) Medical on inhaler hours as Branc h needed for Wheezing. INHALE 2 PUFFS BY MOUTH EVERY 6 HOURS NEEDED BEFORE EXERCISE OR FOR WHEEZING/S HORTNESS OF BREATH. levalbutero 0 Yes [id number] 2{puff} Inhale 2 Univers l (XOPENEX 8-07 Puffs ity of HFA) 45 00:00: every 6 [place] mcg/actuati 00 (six) Medical on inhaler hours as Branc h needed for Wheezing. INHALE 2 PUFFS BY MOUTH EVERY 6 HOURS NEEDED BEFORE EXERCISE OR FOR WHEEZING/S HORTNESS OF BREATH. levalbutero 0 Yes [id number] 2{puff} Inhale 2 Univers l (XOPENEX 8-07 Puffs ity of HFA) 45 00:00: every 6 [place] mcg/actuati 00 (six) Medical on inhaler hours as Branc h needed for Wheezing. INHALE 2 PUFFS BY MOUTH EVERY 6 HOURS NEEDED BEFORE EXERCISE OR FOR WHEEZING/S HORTNESS OF BREATH. levalbutero Yes [id number] 2{puff} Inhale 2 Univers l (XOPENEX 8-07 Puffs ity of HFA) 45 00:00: every 6 [place] mcg/actuati 00 (six) Medical on inhaler hours as Branc h needed for Wheezing. INHALE 2 PUFFS BY MOUTH EVERY 6 HOURS NEEDED BEFORE EXERCISE OR FOR WHEEZING/S HORTNESS OF BREATH. SUMAtriptan 2022- No [id number] 1 spray in [facility] 5 02-22- each ity of mg/actuatio 00:00: 00:00 nostril as [place] n nasal 00 :00 needed for Medica l spray migraine. Branch If symptoms persist or return, may repeat dose after =1 hour. Do not exceed 4 sprays total in any 24-hour period. SUMAtriptan 0 2022- No [id number] 1 spray in [place] [address] 02-22 each ity of mg/actuatio 00:00: 00:00 nostril [...] dose, On 02/01/23 at 0145, STAT iopamidol 0 2022- No [id number] 70mL 70 mL, U nivers (ISOVUE 02-01 Intravenou ity o f 370-500 mL) 06:45: 05:47 s, ONCE, 1 [place] injection 00 :00 dose, On Medica l 70 mL Mon Branch 02/01/23 at 0145, Routine IMITREX 5 0 Yes as needed Uni vers MG/ACTUATIO 7-13 for ity of N NASAL 15:08: migraines [place] SPRY 59 Medical Branch [facility] Yes Apply to [place] 0.1% in 7- affected ity o f aquaphor 15:08: area(s). [place] (COMPOUNDED 59 Medical ) ointment Branch ARIPiprazol Yes by Univer s e (ABILIFY 7-13 Intramuscu ity of [place]) 15:08: lar route [place] as 300 mg sers 59 once every Me dical month. Branch cariprazine Yes 1{capsu Take 1 U nivers (VRAYLAR) 3 7-13 le} capsule by it y of mg Cap 15:08: mouth in [place] 59 the Medical morning Branch and 1 capsule in the evening. IMITREX 5 2022-0 Yes as needed Uni vers MG/ACTUATIO 7-13 for ity of N NASAL 15:08: migraines [place] SPRY 59 Medical Branch [facility] Yes Apply to [place] 0.1% in 13 affected ity o f aquaphor 15:08: area(s). [place] (COMPOUNDED 59 Medical ) ointment Branch ARIPiprazol Yes by Univer s e (ABILIFY 7 Intramuscu ity of [place]) 15:08: lar route [place] as 300 mg sers 59 once every Me dical month. Branch cariprazine Yes 1{capsu Take 1 U nivers (VRAYLAR) 3 7-13 le} capsule by it y of mg Cap 15:08: mouth in [place] 59 the Medical morning Branch and 1 capsule in the evening. IMITREX 5 2022-0 Yes as needed Uni vers MG/ACTUATIO 7-13 for ity of N NASAL 15:08: migraines [place] SPRY 59 Medical Branch [facility] Yes Apply to [place] 0.1% in 01-28 affected ity o f aquaphor 15:08: area(s). [place] (COMPOUNDED 59 Medical ) ointment Branch ARIPiprazol Yes by Univer s e (ABILIFY 7- Intramuscu ity of [place]) 15:08: lar route [place] 300 mg sers 59 once every Me dical month. Branch cariprazine Yes 1{capsu Take 1 U nivers (VRAYLAR) 3 7-13 le} capsule by it y of mg Cap 15:08: mouth in [place] 59 the Medical morning Branch and 1 capsule in the evening. IMITREX 5 Yes as needed Uni vers MG/ACTUATIO 7-13 for ity of N NASAL 15:08: migraines [place] SPRY 59 Medical Branch [facility] Yes Apply to [place] 0.1% in 713 affected ity o f aquaphor 15:08: area(s). [place] (COMPOUNDED 59 Medical ) ointment Branch ARIPiprazol Yes by Univer s e (ABILIFY 01-[address] [facility]) 15:08: lar route [place] 300 mg sers 59 once every Me dical month. Branch cariprazine Yes 1{capsu Take 1 U nivers (VRAYLAR) 3 7-13 le} capsule by it y of mg Cap 15:08: mouth in [place] [address] the Medical morning Branch and 1 capsule in the evening. IMITREX 5 Yes as needed Uni vers MG/ACTUATIO 713 for ity of N NASAL 15:08: migraines [place] [address] Medical [facility] Yes Apply to Un [place] 0.1% in 01-28 affected ity o f aquaphor 15:08: area(s). [place] (COMPOUNDED 59 Medical ) ointment Branch ARIPiprazol Yes by Univer s e (ABILIFY 7 Intramuscu ity of [employer]) 15:08: lar route [place] 300 mg sers 59 once every Me dical month. Branch cariprazine Yes 1{capsu Take 1 U nivers (VRAYLAR) 3 7-13 le} capsule by it y of mg Cap 15:08: mouth in [place] 59 the Medical morning Branch and 1 capsule in the evening. IMITREX 5 Yes as needed Uni vers MG/ACTUATIO 7-13 for ity of N NASAL 15:08[facility] Branch [facility] Yes Apply to [place] 0.1% in 7-13 affected ity o f aquaphor 15:08: area(s). [place] (COMPOUNDED 59 Medical ) ointment Branch ARIPiprazol Yes by Univer s e (ABILIFY 7 Intramuscu ity of [employer]) 15:08: lar route [place] 300 mg sers 59 once every Me dical month. Branch cariprazine Yes 1{capsu Take 1 U nivers (VRAYLAR) 3 7- le} capsule by it y of mg Cap 15:08: mouth in [place] 59 the Medical morning Branch and 1 capsule in the evening. IMITREX 5 2022-0 Yes as needed Uni vers MG/ACTUATIO 7-13 for ity of N NASAL 15:08: migraines [place] SPRY 59 Medical Branch [facility] Yes Apply to [place] 0.1% in 13 affected ity o f aquaphor 15:08: area(s). [place] (COMPOUNDED 59 Medical ) ointment Branch ARIPiprazol Yes by Univer s e (ABILIFY 01-28 [facility] 15:08: lar route [place] 300 mg sers 59 once every Me dical month. Branch cariprazine Yes 1{capsu Take 1 U nivers (VRAYLAR) 3 7 le} capsule by it y of mg Cap 15:08: mouth in [place] 59 the Medical morning Branch and 1 capsule in the evening. IMITREX 5 2022-0 Yes as needed Uni vers MG/ACTUATIO 7 for ity of N NASAL 15:08: migraines [place] SPRY 59 Medical Branch [facility] Yes Apply to [place] 0.1% in 01-28 affected ity o f aquaphor 15:08: area(s). [place] (COMPOUNDED 59 Medical ) ointment Branch ARIPiprazol Yes by Univer s e (ABILIFY 7 Intramuscu ity of [employer]) 15:08: lar route [place] 300 mg sers 59 once every Me dical month. Branch cariprazine Yes 1{capsu Take 1 U nivers (VRAYLAR) 3 7- le} capsule by it y of mg Cap 15:08: mouth in [place] 59 the Medical morning Branch and 1 capsule in the evening. IMITREX 5 0 Yes as needed Uni vers MG/ACTUATIO 7-13 for ity of N NASAL 15:08: migraines [place] SPRY 59 Medical Branch [facility] Yes Apply to [place] 0.1% in 7-13 affected ity o f aquaphor 15:08: area(s). [place] (COMPOUNDED 59 Medical ) ointment Branch ARIPiprazol Yes by Univer s e (ABILIFY 7 [facility]cu [facility] 15:08: lar route [place] 300 mg sers 59 once every Me dical month. Branch cariprazine Yes 1{capsu Take 1 U nivers (VRAYLAR) 3 7 le} capsule by it y of mg Cap 15:08: mouth in [place] [address] the Medical morning Branch and 1 capsule in the evening. IMITREX 5 Yes as needed Uni vers MG/ACTUATIO 7 for ity of N NASAL 15:08[facility] Branch [facility] Yes Apply to [place] 0.1% in 01-28 affected ity o f aquaphor 15:08: area(s). [place] (COMPOUNDED 59 Medical ) ointment Branch ARIPiprazol Yes by Univer s e (ABILIFY 7 Intramuscu ity of [employer]) 15:08: lar route [place] 300 mg sers 59 once every Me dical month. Branch cariprazine Yes 1{capsu Take 1 U nivers (VRAYLAR) 3 7-13 le} capsule by it y of mg Cap 15:08: mouth in [place] 59 the Medical morning Branch and 1 capsule in the evening. IMITREX 5 0 Yes as needed Uni vers MG/ACTUATIO 7-13 for ity of N NASAL 15:08: migraines [place] SPRY 59 Medical Branch [facility] Yes Apply to [place] 0.1% in 7-13 affected ity o f aquaphor 15:08: area(s). [place] (COMPOUNDED 59 Medical ) ointment Branch ARIPiprazol Yes by Univer s e (ABILIFY 7 [facility]) 15:08: lar route [place] 300 mg sers 59 once every Me dical month. Branch cariprazine Yes 1{capsu Take 1 U nivers (VRAYLAR) 3 7-13 le} capsule by it y of mg Cap 15:08: mouth in [place] 59 the Medical morning Branch and 1 capsule in the evening. IMITREX 5 2022-0 Yes as needed Uni vers MG/ACTUATIO 7-13 for ity of N NASAL 15:08: migraines [place] SPRY 59 Medical Branch [facility] Yes Apply to [place] 0.1% in 01-28 affected ity o f aquaphor 15:08: area(s). [place] (COMPOUNDED 59 Medical ) ointment Branch ARIPiprazol Yes by Univer s e (ABILIFY 01-28 [facility]) 15:08: lar route [place] 300 mg sers 59 once every Me dical month. Branch cariprazine Yes 1{capsu Take 1 U nivers (VRAYLAR) 3 7-13 le} capsule by it y of mg Cap 15:08: mouth in [place] 59 the Medical morning Branch and 1 capsule in the evening. IMITREX 5 2022-0 Yes as needed Uni vers MG/ACTUATIO 713 for ity of N NASAL 15:08: migraines [place] SPRY 59 Medical [facility] Yes Apply to [place] 0.1% in 01-28 affected ity o f aquaphor 15:08: area(s). [place] (COMPOUNDED 59 Medical ) ointment Branch ARIPiprazol Yes by Univer s e (ABILIFY 7 [facility]) 15:08: lar route [place] 300 mg sers 59 once every Me dical month. Branch cariprazine Yes 1{capsu Take 1 U nivers (VRAYLAR) 3 7-13 le} capsule by it y of mg Cap 15:08: mouth in [place] 59 the Medical morning Branch and 1 capsule in the evening. IMITREX 5 Yes as needed Uni vers MG/ACTUATIO 7- for ity of N NASAL 15:08: migraines [place] SPRY 59 Medical Branch [facility] Yes Apply to [place] 0.1% in 7-13 affected ity o f aquaphor 15:08: area(s). [place] (COMPOUNDED 59 Medical ) ointment Branch ARIPiprazol Yes by [employer] s e (ABILIFY 7 Intr[facility]cu [facility]y [facility] 15:08: lar route [place] 300 mg sers 59 once every Me dical month. Branch cariprazine Yes 1{capsu Take 1 U nivers (VRAYLAR) 3 7 le} capsule by it y of mg Cap 15:08: mouth in [place] [address] the Medical morning Branch and 1 capsule in the evening. IMITREX 5 Yes as needed Uni vers MG/ACTUATIO 01-28 for ity of N NASAL 15:08: [facility] Branch [facility] Yes Apply to [place] 0.1% in 01-28 affected ity o f aquaphor 15:08: area(s). [place] (COMPOUNDED 59 Medical ) ointment Branch ARIPiprazol Yes by [employer] s e (ABILIFY 7 [facility]cu [facility]) 15:08: lar route [place] 300 mg sers 59 once every Me dical month. Branch cariprazine Yes 1{capsu Take 1 U nivers (VRAYLAR) 3 7-13 le} capsule by it y of mg Cap 15:08: mouth in [place] 59 the Medical morning Branch and 1 capsule in the evening. IMITREX 5 Yes as needed Uni vers MG/ACTUATIO 713 for ity of N NASAL 15:08: migraines [place] SPRY 59 Medical Branch [facility] Yes Apply to [place] 0.1% in 7-13 affected ity o f aquaphor 15:08: area(s). [place] (COMPOUNDED 59 Medical ) ointment Branch ARIPiprazol 2022-0 Yes by Univer s e (ABILIFY 7 [facility]) 15:08: lar route [place] 300 mg sers 59 once every Me dical month. Branch cariprazine 2022-0 Yes 1{capsu Take 1 U nivers (VRAYLAR) 3 7-13 le} capsule by it y of mg Cap 15:08: mouth in [place] 59 the Medical morning Branch and 1 capsule in the evening. triamcinolo 2022-0 Yes Apply to [place] 0.1% in 01-28 affected ity o f aquaphor 15:08: area(s). [place] (COMPOUNDED 59 Medical ) ointment Branch ARIPiprazol 2022-0 Yes by Univer s e (ABILIFY 7 [facility]) 15:08: lar route [place] 300 mg sers 59 once every Me dical month. Branch cariprazine 2022-0 Yes 1{capsu Take 1 U nivers (VRAYLAR) 3 7- le} capsule by it y of mg Cap 15:08: mouth in [place] 59 the Medical morning Branch and 1 capsule in the evening. triamcinolo 2022-0 Yes Apply to [place] 0.1% in 01-28 affected ity o f aquaphor 15:08: area(s). [place] (COMPOUNDED 59 Medical ) ointment Branch ARIPiprazol 2022-0 Yes by Univer s e (ABILIFY 01-28 Intramuscu ity of [facility]) 15:08: lar route [place] 300 mg sers 59 once every Me dical month. Branch cariprazine 2022-0 Yes 1{capsu Take 1 U nivers (VRAYLAR) 3 7-13 le} capsule by it y of mg Cap 15:08: mouth in [place] 59 the Medical morning Branch and 1 capsule in the evening. triamcinolo 2022-0 Yes Apply to [place] 0.1% in 7-13 affected ity o f aquaphor 15:08: area(s). [place] (COMPOUNDED 59 Medical ) ointment Branch ARIPiprazol 2022-0 Yes by Univer s e (ABILIFY 7-[address] [facility]) 15:08: lar route [place] 300 mg sers 59 once every Me dical month. Branch cariprazine 2022-0 Yes 1{capsu Take 1 U nivers (VRAYLAR) 3 7-13 le} capsule by it y of mg Cap 15:08: mouth in [place] 59 the Medical morning Branch and 1 capsule in the evening. levETIRAcet 2022-0 Yes [id number] 1000mg Take 10 mL Univers am (KEPPRA) 7-13 by mouth ity of 100 mg/mL 00:00: in the [place] [address] morning Medical solution and 10 mL Branch in the evening. levETIRAcet 2022-0 Yes [id number] 1000mg Take 10 mL Univers am (KEPPRA) 7-13 by mouth ity of 100 mg/mL 00:00: in the [place] [address] morning Medical solution and 10 mL Branch in the evening. metoprolol 0 Yes [id number] 25mg Take 1 U nivers succinate 7-13 tablet by ity o f XL 25 mg 24 00:00: mouth in [place] hr tablet 00 the Medical morning. Branch levETIRAcet 2022-0 Yes [id number] 1000mg Take 10 mL Univers am (KEPPRA) 7-13 by mouth ity of 100 mg/mL 00:00: in the [place] [address] morning Medical solution and 10 mL Branch in the evening. metoprolol 2022-0 Yes [id number] 25mg Take 1 U nivers succinate 7-13 tablet by ity o f XL 25 mg 24 00:00: mouth in [place] hr tablet 00 the Medical morning. Branch levETIRAcet 2022-0 Yes [id number] 1000mg Take 10 mL Univers am (KEPPRA) 7-13 by mouth ity of 100 mg/mL 00:00: in the [place] [address] morning Medical solution and 10 mL Branch in the evening. metoprolol 2022-0 Yes [id number] 25mg Take 1 U nivers succinate 7-13 tablet by ity o f XL 25 mg 24 00:00: mouth in [place] hr tablet 00 the Medical morning. Branch levETIRAcet 2022-0 Yes [id number] 1000mg Take 10 mL Univers am (KEPPRA) 7-13 by mouth ity of 100 mg/mL 00:00: in the [place] oral 00 morning Medical solution and 10 mL Branch in the evening. metoprolol 3-0 Yes [id number] 25mg Take 1 U nivers succinate 7-13 tablet by ity o f XL 25 mg 24 00:00: mouth in [place] hr tablet 00 the Medical morning. Branch levETIRAcet 3-0 Yes [id number] 1000mg Take 10 mL Univers am (KEPPRA) 7-13 by mouth ity of 100 mg/mL 00:00: in the [place] oral 00 morning Medical solution and 10 mL Branch in the evening. metoprolol 3-0 Yes [id number] 25mg Take 1 U nivers succinate 7-13 tablet by ity o f XL 25 mg 24 00:00: mouth in [place] hr tablet 00 the Medical morning. Branch levETIRAcet 3-0 Yes [id number] 1000mg Take 10 mL Univers am (KEPPRA) 7-13 by mouth ity of 100 mg/mL 00:00: in the [place] oral 00 morning Medical solution and 10 mL Branch in the evening. metoprolol 3-0 Yes [id number] 25mg Take 1 U nivers succinate 7-13 tablet by ity o f XL 25 mg 24 00:00: mouth in [place] hr tablet 00 the Medical morning. Branch levETIRAcet 2022-0 Yes [id number] 1000mg Take 10 mL Univers am (KEPPRA) 7-13 by mouth ity of 100 mg/mL 00:00: in the [place] oral 00 morning Medical solution and 10 mL Branch in the evening. metoprolol 3-0 Yes [id number] 25mg Take 1 U nivers succinate 7-13 tablet by ity o f XL 25 mg 24 00:00: mouth in [place] hr tablet 00 the Medical morning. Branch levETIRAcet 3-0 Yes [id number] 1000mg Take 10 mL Univers am (KEPPRA) 7-13 by mouth ity of 100 mg/mL 00:00: in the [place] oral 00 morning Medical solution and 10 mL Branch in the evening. metoprolol 3-0 Yes [id number] 25mg Take 1 U nivers succinate 7-13 tablet by ity o f XL 25 mg 24 00:00: mouth in [place] hr tablet 00 the Medical morning. Branch levETIRAcet 3-0 Yes [id number] 1000mg Take 10 mL Univers am (KEPPRA) 7-13 by mouth ity of 100 mg/mL 00:00: in the [place] oral 00 morning Medical solution and 10 mL Branch in the evening. metoprolol 3-0 Yes [id number] 25mg Take 1 U nivers succinate 7-13 tablet by ity o f XL 25 mg 24 00:00: mouth in [place] hr tablet 00 the Medical morning. Branch levETIRAcet 3-0 Yes [id number] 1000mg Take 10 mL Univers am (KEPPRA) 7-13 by mouth ity of 100 mg/mL 00:00: in the [place] oral 00 morning Medical solution and 10 mL Branch in the evening. metoprolol 3-0 Yes [id number] 25mg Take 1 U nivers succinate 7-13 tablet by ity o f XL 25 mg 24 00:00: mouth in [place] hr tablet 00 the Medical morning. Branch levETIRAcet 3-0 Yes [id number] 1000mg Take 10 mL Univers am (KEPPRA) 7-13 by mouth ity of 100 mg/mL 00:00: in the [place] oral 00 morning Medical solution and 10 mL Branch in the evening. metoprolol 3-0 Yes [id number] 25mg Take 1 U nivers succinate 7-13 tablet by ity o f XL 25 mg 24 00:00: mouth in [place] hr tablet 00 the Medical morning. Branch levETIRAcet 3-0 Yes [id number] 1000mg Take 10 mL Univers am (KEPPRA) 7-13 by mouth ity of 100 mg/mL 00:00: in the [place] oral 00 morning Medical solution and 10 mL Branch in the evening. metoprolol 3-0 Yes [id number] 25mg Take 1 U nivers succinate 7-13 tablet by ity o f XL 25 mg 24 00:00: mouth in [place] hr tablet 00 the Medical morning. Branch levETIRAcet 3-0 Yes [id number] 1000mg Take 10 mL Univers am (KEPPRA) 7-13 by mouth ity of 100 mg/mL 00:00: in the [place] oral 00 morning Medical solution and 10 mL Branch in the evening. metoprolol 3-0 Yes [id number] 25mg Take 1 U nivers succinate 7-13 tablet by ity o f XL 25 mg 24 00:00: mouth in [place] hr tablet 00 the Medical morning. Branch levETIRAcet 2022-0 Yes [id number] 1000mg Take 10 mL Univers am (KEPPRA) 7-13 by mouth ity of 100 mg/mL 00:00: in the [place] oral 00 morning Medical solution and 10 mL Branch in the evening. metoprolol 2022-0 Yes [id number] 25mg Take 1 U nivers succinate 7-13 tablet by ity o f XL 25 mg 24 00:00: mouth in [place] hr tablet 00 the Medical morning. Branch levETIRAcet 2022-0 Yes [id number] 1000mg Take 10 mL Univers am (KEPPRA) 7-13 by mouth ity of 100 mg/mL 00:00: in the [place] oral 00 morning Medical solution and 10 mL Branch in the evening. metoprolol 2022-0 Yes [id number] 25mg Take 1 U nivers succinate 7-13 tablet by ity o f XL 25 mg 24 00:00: mouth in [place] hr tablet 00 the Medical morning. Branch levETIRAcet 2022-0 Yes [id number] 1000mg Take 10 mL Univers am (KEPPRA) 7-13 by mouth ity of 100 mg/mL 00:00: in the [place] oral 00 morning Medical solution and 10 mL Branch in the evening. metoprolol 2022-0 Yes [id number] 25mg Take 1 U nivers succinate 7-13 tablet by ity o f XL 25 mg 24 00:00: mouth in [place] hr tablet 00 the Medical morning. Branch levETIRAcet 3-0 Yes [id number] 1000mg Take 10 mL Univers am (KEPPRA) 7-13 by mouth ity of 100 mg/mL 00:00: in the [place] oral 00 morning Medical solution and 10 mL Branch in the evening. metoprolol 3-0 Yes [id number] 25mg Take 1 U nivers succinate 7-13 tablet by ity o f XL 25 mg 24 00:00: mouth in [place] hr tablet 00 the Medical morning. Branch levETIRAcet 3-0 Yes [id number] 1000mg Take 10 mL Univers am (KEPPRA) 7-13 by mouth ity of 100 mg/mL 00:00: in the [place] oral 00 morning Medical solution and 10 mL Branch in the evening. metoprolol 3-0 Yes [id number] 25mg Take 1 U nivers succinate 7-13 tablet by ity o f XL 25 mg 24 00:00: mouth in [place] hr tablet 00 the Medical morning. Branch levETIRAcet 2022-0 Yes [id number] 1000mg Take 10 mL Univers am (KEPPRA) 7-13 by mouth ity of 100 mg/mL 00:00: in the [place] oral 00 morning Medical solution and 10 mL Branch in the evening. metoprolol 2022-0 Yes [id number] 25mg Take 1 U nivers succinate 7-13 tablet by ity o f XL 25 mg 24 00:00: mouth in [place] hr tablet 00 the Medical morning. Branch levETIRAcet 2022-0 Yes [id number] 1000mg Take 10 mL Univers am (KEPPRA) 7-13 by mouth ity of 100 mg/mL 00:00: in the [place] oral 00 morning Medical solution and 10 mL Branch in the evening. metoprolol 2022-0 Yes [id number] 25mg Take 1 U nivers succinate 7-13 tablet by ity o f XL 25 mg 24 00:00: mouth in [place] hr tablet 00 the Medical morning. Branch levETIRAcet 2022-0 Yes [id number] 1000mg Take 10 mL Univers am (KEPPRA) 7-13 by mouth ity of 100 mg/mL 00:00: in the [place] oral 00 morning Medical solution and 10 mL Branch in the evening. metoprolol 2022-0 Yes [id number] 25mg Take 1 U nivers succinate 7-13 tablet by ity o f XL 25 mg 24 00:00: mouth in [place] hr tablet 00 the Medical morning. Branch levETIRAcet 2022-0 Yes [id number] 1000mg Take 10 mL Univers am (KEPPRA) 7-13 by mouth ity of 100 mg/mL 00:00: in the [place] oral 00 morning Medical solution and 10 mL Branch in the evening. metoprolol 3-0 Yes [id number] 25mg Take 1 U nivers succinate 7-13 tablet by ity o f XL 25 mg 24 00:00: mouth in [place] hr tablet 00 the Medical morning. Branch levETIRAcet 3-0 Yes [id number] 1000mg Take 10 mL Univers am (KEPPRA) 7-13 by mouth ity of 100 mg/mL 00:00: in the [place] oral 00 morning Medical solution and 10 mL Branch in the evening. metoprolol 2022-0 Yes [id number] 25mg Take 1 U nivers succinate 7-13 tablet by ity o f XL 25 mg 24 00:00: mouth in [place] hr tablet 00 the Medical morning. Branch levETIRAcet 2022-0 Yes [id number] 1000mg Take 10 mL Univers am (KEPPRA) 7-13 by mouth ity of 100 mg/mL 00:00: in the [place] oral 00 morning Medical solution and 10 mL Branch in the evening. metoprolol 2022-0 Yes [id number] 25mg Take 1 U nivers succinate 7-13 tablet by ity o f XL 25 mg 24 00:00: mouth in [place] hr tablet 00 the Medical morning. Branch levETIRAcet 2022-0 Yes [id number] 1000mg Take 10 mL Univers am (KEPPRA) 7-13 by mouth ity of 100 mg/mL 00:00: in the [place] oral 00 morning Medical solution and 10 mL Branch in the evening. metoprolol 2022-0 Yes [id number] 25mg Take 1 U nivers succinate 7-13 tablet by ity o f XL 25 mg 24 00:00: mouth in [place] hr tablet 00 the Medical morning. Branch levETIRAcet 3-0 Yes [id number] 1000mg Take 10 mL Univers am (KEPPRA) 7-13 by mouth ity of 100 mg/mL 00:00: in the [place] oral 00 morning Medical solution and 10 mL Branch in the evening. metoprolol 3-0 Yes [id number] 25mg Take 1 U nivers succinate 7-13 tablet by ity o f XL 25 mg 24 00:00: mouth in [place] hr tablet 00 the Medical morning. Branch levETIRAcet 3-0 Yes [id number] 1000mg Take 10 mL Univers am (KEPPRA) 7-13 by mouth ity of 100 mg/mL 00:00: in the [place] oral 00 morning Medical solution and 10 mL Branch in the evening. metoprolol 3-0 Yes [id number] 25mg Take 1 U nivers succinate 7-13 tablet by ity o f XL 25 mg 24 00:00: mouth in [place] hr tablet 00 the Medical morning. Branch levETIRAcet 3-0 Yes [id number] 1000mg Take 10 mL Univers am (KEPPRA) 7-13 by mouth ity of 100 mg/mL 00:00: in the [place] oral 00 morning Medical solution and 10 mL Branch in the evening. metoprolol 3-0 Yes [id number] 25mg Take 1 U nivers succinate 7-13 tablet by ity o f XL 25 mg 24 00:00: mouth in [place] hr tablet 00 the Medical morning. Branch levETIRAcet 3-0 Yes [id number] 1000mg Take 10 mL Univers am (KEPPRA) 7-13 by mouth ity of 100 mg/mL 00:00: in the [place] oral 00 morning Medical solution and 10 mL Branch in the evening. metoprolol 2022-0 Yes [id number] 25mg Take 1 U nivers succinate 7-13 tablet by ity o f XL 25 mg 24 00:00: mouth in [place] hr tablet 00 the Medical morning. Branch levETIRAcet 3-0 Yes [id number] 1000mg Take 10 mL Univers am (KEPPRA) 7-13 by mouth ity of 100 mg/mL 00:00: in the [place] oral 00 morning Medical solution and 10 mL Branch in the evening. metoprolol 3-0 Yes [id number] 25mg Take 1 U nivers succinate 7-13 tablet by ity o f XL 25 mg 24 00:00: mouth in [place] hr tablet 00 the Medical morning. Branch levETIRAcet 3-0 Yes [id number] 1000mg Take 10 mL Univers am (KEPPRA) 7-13 by mouth ity of 100 mg/mL 00:00: in the [place] oral 00 morning Medical solution and 10 mL Branch in the evening. metoprolol 3-0 Yes [id number] 25mg Take 1 U nivers succinate 7-13 tablet by ity o f XL 25 mg 24 00:00: mouth in [place] hr tablet 00 the Medical morning. Branch levETIRAcet 3-0 Yes [id number] 1000mg Take 10 mL Univers am (KEPPRA) 7-13 by mouth ity of 100 mg/mL 00:00: in the [place] oral 00 morning Medical solution and 10 mL Branch in the evening. metoprolol 3-0 Yes [id number] 25mg Take 1 U nivers succinate 7-13 tablet by ity o f XL 25 mg 24 00:00: mouth in [place] hr tablet 00 the Medical morning. Branch levETIRAcet 3-0 Yes [id number] 1000mg Take 10 mL Univers am (KEPPRA) 7-13 by mouth ity of 100 mg/mL 00:00: in the [place] oral 00 morning Medical solution and 10 mL Branch in the evening. metoprolol 3-0 Yes [id number] 25mg Take 1 U nivers succinate 7-13 tablet by ity o f XL 25 mg 24 00:00: mouth in [place] hr tablet 00 the Medical morning. Branch levETIRAcet 3-0 Yes [id number] 1000mg Take 10 mL [facility] am (KEPPRA) 7-13 by mouth ity of 100 mg/mL 00:00: in the [place] oral 00 morning Medical solution and 10 mL Branch in the evening. metoprolol 3-0 Yes [id number] 25mg Take 1 U nivers succinate 7-13 tablet by ity o f XL 25 mg 24 00:00: mouth in [place] hr tablet 00 the Medical morning. Branch levETIRAcet 3-0 Yes [id number] 1000mg Take 10 mL Univers am (KEPPRA) 7-13 by mouth ity of 100 mg/mL 00:00: in the [place] oral 00 morning Medical solution and 10 mL Branch in the evening. metoprolol 3-0 Yes [id number] 25mg Take 1 U nivers succinate 7-13 tablet by ity o f XL 25 mg 24 00:00: mouth in [place] hr tablet 00 the Medical morning. Branch levETIRAcet 3-0 Yes [id number] 1000mg Take 10 mL [facility] am (KEPPRA) 7-13 by mouth ity of 100 mg/mL 00:00: in the [place] oral 00 morning Medical solution and 10 mL Branch in the evening. metoprolol 3-0 Yes [id number] 25mg Take 1 U nivers succinate 7-13 tablet by ity o f XL 25 mg 24 00:00: mouth in [place] hr tablet 00 the Medical morning. Branch levETIRAcet 2022-0 Yes [id number] 1000mg Take 10 mL [facility] am (KEPPRA) 7-13 by mouth ity of 100 mg/mL 00:00: in the [place] oral 00 morning Medical solution and 10 mL Branch in the evening. metoprolol 2022-0 Yes [id number] 25mg Take 1 U nivers succinate 7-13 tablet by ity o f XL 25 mg 24 00:00: mouth in [place] hr tablet 00 the Medical morning. Branch levETIRAcet 2022-0 Yes [id number] 1000mg Take 10 mL [facility] am (KEPPRA) 7-13 by mouth ity of 100 mg/mL 00:00: in the [place] oral 00 morning Medical solution and 10 mL Branch in the evening. metoprolol 2022-0 Yes [id number] 25mg Take 1 U nivers succinate 7-13 tablet by ity o f XL 25 mg 24 00:00: mouth in [place] hr tablet 00 the Medical morning. Branch levETIRAcet 2022-0 Yes [id number] 1000mg Take 10 mL [facility] am (KEPPRA) 7-13 by mouth ity of 100 mg/mL 00:00: in the [place] oral 00 morning Medical solution and 10 mL Branch in the evening. metoprolol 2022-0 Yes [id number] 25mg Take 1 U nivers succinate 7-13 tablet by ity o f XL 25 mg 24 00:00: mouth in [place] hr tablet 00 the Medical morning. Branch levETIRAcet 2022-0 Yes [id number] 1000mg Take 10 mL [facility] am (KEPPRA) 7-13 by mouth ity of 100 mg/mL 00:00: in the [place] oral 00 morning Medical solution and 10 mL Branch in the evening. metoprolol 2022-0 Yes [id number] 25mg Take 1 U nivers succinate 7-13 tablet by ity o f XL 25 mg 24 00:00: mouth in [place] hr tablet 00 the Medical morning. Branch levETIRAcet 3-0 Yes [id number] 1000mg Take 10 mL [facility] am (KEPPRA) 7-13 by mouth ity of 100 mg/mL 00:00: in the [place] oral morning Medical solution and 10 mL Branch in the evening. metoprolol 2022-0 Yes [id number] 25mg Take 1 U nivers succinate 7-13 tablet by ity o f XL 25 mg 24 00:00: mouth in [place] hr tablet 00 the Medical morning. Branch levETIRAcet 2022-0 Yes [id number] 1000mg Take 10 mL [facility] am (KEPPRA) 7-13 by mouth ity of 100 mg/mL 00:00: in the [place] oral morning Medical solution and 10 mL Branch in the evening. metoprolol 2022-0 Yes [id number] 25mg Take 1 U nivers succinate 7-13 tablet by ity o f XL 25 mg 24 00:00: mouth in [place] hr tablet 00 the Medical morning. Branch levETIRAcet 2022-0 Yes [id number] 1000mg Take 10 mL Univers am (KEPPRA) 7-13 by mouth ity of 100 mg/mL 00:00: in the [place] [address] morning Medical solution and 10 mL Branch in the evening. metoprolol 2022-0 Yes [id number] 25mg Take 1 U nivers succinate 7-13 tablet by ity o f XL 25 mg 24 00:00: mouth in [place] hr tablet 00 the Medical morning. Branch levETIRAcet 2022-0 Yes [id number] 1000mg Take 10 mL Univers am (KEPPRA) 7-13 by mouth ity of 100 mg/mL 00:00: in the [place] [address] morning Medical solution and 10 mL Branch in the evening. metoprolol 2022-0 Yes [id number] 25mg Take 1 U nivers succinate 7-13 tablet by ity o f XL 25 mg 24 00:00: mouth in [place] hr tablet 00 the Medical morning. Branch ketorolac 2022- No 60mg 60 mg, Unive rs (TORADOL) 01-21 07-06 Intramuscu ity of injection 04:00: 03:39 lar, ONCE, [place] 60 mg 00 :00 1 dose, On Wed01/20/23 Branch at 2300, THIERRY HYDROcodone 0 2022- No 1{tbl} 1 tablet, Univers -acetaminop [...] A SERVICE-HY DROMORPHON E INJECTIONS FENTanyl PF Yes 25ug 25 mcg, Uni vers (SUBLIMAZE 01-18 Slow IV ity of (PF)) 14:56: Push, [place] injection 40 Q5MIN PRN, Medi cherie 25 mcg 4 doses, Branch Starting on Wed01/18/23 at 0956, Until Discontinu ed, Routine, Pain (scale 4-6), PACU ondansetron 0 Yes 4mg 4 mg, Slow Univers (ZOFRAN [...] for ity of N NASAL 13:17: migraines [address] Yes Apply to [place] 0.1% in 01-18 affected ity o f aquaphor 13:17: area(s). [place] ([facility] Medical ) ointment Branch ARIPiprazol Yes by Univer s e (ABILIFY 01-[address] [facility]) 13:17: lar route [place] 300 mg sers once every Me dical month. Branch cariprazine Yes 1{capsu Take 1 U nivers (VRAYLAR) 3 01-18 le} capsule by it y of mg Cap 13:17: mouth in [place] the Medical morning Branch and 1 capsule in the evening. IMITREX 5 Yes as needed Uni vers MG/ACTUATIO 01-18 for ity of N NASAL 13:17: migraines [address] Yes Apply to [place] 0.1% in 01-18 affected ity o f aquaphor 13:17: area(s). [place] ([facility] Medical ) ointment Branch ARIPiprazol Yes by Univer s e (ABILIFY 01-18 Intramuscu ity of [employer]) 13:17: lar route [place] 300 mg sers 01 once every Me dical month. Branch cariprazine Yes 1{capsu Take 1 U nivers (VRAYLAR) 3 7- le} capsule by it y of mg Cap 13:17: mouth in [place] the Medical morning Branch and 1 capsule in the evening. IMITREX 5 Yes as needed Uni vers MG/ACTUATIO 7 for ity of N NASAL 13:17: migraines [place] [facility] Medical Branch [facility] Yes Apply to [place] 0.1% in 01-18 affected ity o f aquaphor 13:17: area(s). [place] ([facility] Medical ) ointment Branch ARIPiprazol Yes by Univer s e (ABILIFY 01-18 Intramuscu ity of [employer]) 13:17: lar route [place] 300 mg sers 01 once every Me dical month. Branch cariprazine Yes 1{capsu Take 1 U nivers (VRAYLAR) 3 7- le} capsule by it y of mg Cap 13:17: mouth in [place] the Medical morning Branch and 1 capsule in the evening. IMITREX 5 0 Yes as needed Uni vers MG/ACTUATIO 01-18 for ity of N NASAL 13:17: migraines [place] SPRY Medical Branch [facility] Yes Apply to [place] 0.1% in 01-18 affected ity o f aquaphor 13:17: area(s). [place] ([facility] ) ointment Branch ARIPiprazol Yes by Univer s e (ABILIFY 01-18 Intramuscu ity of [employer]) 13:17: lar route [place] 300 mg sers 01 once every Me dical month. Branch cariprazine Yes 1{capsu Take 1 U nivers (VRAYLAR) 3 7-03 le} capsule by it y of mg Cap 13:17: mouth in [place] the Medical morning Branch and 1 capsule in the evening. IMITREX 5 Yes as needed Uni vers MG/ACTUATIO 7 for ity of N NASAL 13:17: [facility] Yes Apply to [place] 0.1% in 01-18 affected ity o f aquaphor 13:17: area(s). [place] ([facility] Medical ) ointment Branch ARIPiprazol Yes by Univer s e (ABILIFY 01-18 [facility]cu [facility]y of [facility]) 13:17: lar route [place] 300 mg sers 01 once every Me dical month. Branch cariprazine Yes 1{capsu Take 1 U nivers (VRAYLAR) 3 7-03 le} capsule by it y of mg Cap 13:17: mouth in [place] the Medical morning Branch and 1 capsule in the evening. IMITREX 5 Yes as needed Uni vers MG/ACTUATIO 7 for ity of N NASAL 13:17: migraines [address] Yes Apply to [place] 0.1% in 01-18 affected ity o f aquaphor 13:17: area(s). [place] ([facility] Medical ) ointment Branch ARIPiprazol Yes by Univer s e (ABILIFY 01-18 Intramuscu ity of [employer]) 13:17: lar route [place] 300 mg sers 01 once every Me dical month. Branch IMITREX 5 Yes as needed Uni vers MG/ACTUATIO 7 for ity of N NASAL 13:17: [facility] [address] [place] [address] Yes Apply to [place] 0.1% in 01-18 affected ity o f aquaphor 13:17: area(s). [place] ([facility] Medical ) ointment Branch ARIPiprazol Yes by Univer s e (ABILIFY 01-18 Intramuscu ity [facility]) 13:17: lar route [place] 300 mg sers 01 once every Me dical month. Branch cariprazine Yes 1{capsu Take 1 U nivers (VRAYLAR) 3 7-03 le} capsule by it y of mg Cap 13:17: mouth in [place] the Medical morning Branch and 1 capsule in the evening. IMITREX 5 Yes as needed Uni vers MG/ACTUATIO 01-18 for ity of N NASAL 13:17: migraines [place] SPRY Medical Branch triamcinolo Yes Apply to [place] 0.1% in 01-18 affected ity o f aquaphor 13:17: area(s). [place] ([facility] Medical ) ointment Branch ARIPiprazol Yes by Univer s e (ABILIFY 01-18 Intramuscu ity [facility]) 13:17: lar route [place] 300 mg sers 01 once every Me dical month. Branch cariprazine Yes 1{capsu Take 1 U nivers (VRAYLAR) 3 7-03 le} capsule by it y of mg Cap 13:17: mouth in [place] the Medical morning Branch and 1 capsule [...] ity of N NASAL 12:08: migraines [address] Yes Apply to [place] 0.1% in 01-14 affected ity o f aquaphor 12:08: area(s). [place] ([facility] Medical ) ointment Branch ARIPiprazol Yes by [employer] s e (ABILIFY 01-14 [facility]cu [facility] 12:08: lar route [place] 300 mg sers 17 once every Me dical month. Branch cariprazine Yes 1{capsu Take 1 U nivers (VRAYLAR) 3 - le} capsule by it y of mg Cap 12:08: mouth in [place] [address] the Medical morning Branch and 1 capsule in the evening. IMITREX 5 Yes as needed Uni vers MG/ACTUATIO 01-14 for ity of N NASAL 12:08: migraines [address] Yes Apply to [place] 0.1% in 01-14 affected ity o f aquaphor 12:08: area(s). [place] ([address] ) ointment Branch ARIPiprazol Yes by [employer] s e (ABILIFY 6 [facility]cu ity [facility] 12:08: lar route [place] 300 mg sers 17 once every Me dical month. Branch cariprazine Yes 1{capsu Take 1 U nivers (VRAYLAR) 3 6-29 le} capsule by it y of mg Cap 12:08: mouth in [place] [address] the Medical morning Branch and 1 capsule in the evening. IMITREX 5 0 Yes as needed Uni vers MG/ACTUATIO 6-29 for ity of N NASAL 12:08: migraines [address] Yes Apply to [place] 0.1% in 01-14 affected ity o f aquaphor 12:08: area(s). [place] ([facility] 17 Medical ) ointment Branch ARIPiprazol 0 Yes by Univer s e (ABILIFY 6- Intramuscu ity [facility]) 12:08: lar route [place] 300 mg sers 17 once every Me dical month. Branch cariprazine 0 Yes 1{capsu Take 1 U nivers (VRAYLAR) 3 01-14 le} capsule by it y of mg Cap 12:08: mouth in [place] 17 the Medical morning Branch and 1 capsule in the evening. traMADoL 50 2022-0 Yes 50mg Take 1 [...] 00 :00 needed. Medical Branch traMADoL 50 3-0 2023- No 50mg Take 1 Uni vers mg tablet 6-23 08-08 tablet by ity of 00:00: 00:00 mouth as [place] 00 :00 needed. Medical Branch traMADoL 50 3-0 2023- No 50mg Take 1 Uni vers mg tablet 6- 08-08 tablet by ity of 00:00: 00:00 mouth as [place] 00 :00 needed. Medical Branch traMADoL 50 3-0 2023- No 50mg Take 1 Uni vers mg tablet 6-23 08-08 tablet by ity of 00:00: 00:00 mouth as [place] 00 :00 needed. Medical Branch acetaminoph 3-0 Yes 1{tbl} [...] s tablet 00 needed. Medical Branch acetaminoph 2022- No 1{tbl} [...] it y of cream 00:00: to area(s) [place] 00 as needed. Medical Branch nystatin Yes 1{dose} Apply 1 Uni vers 100,000 6-16 Dose to ity of unit/gram 00:00: area(s) in [place] cream 00 the Medical morning. Branch terbinafine Yes 1{dose} Apply 1 Univers HCL 1 % 6-16 Dose to ity of cream 00:00: area(s) in [place] 00 the Medical morning. Branch hydrocortis 2022-0 Yes 1{appli Apply 1 Univers one 2.5 % 6-16 cator} Applicator it y of cream 00:00: to area(s) [place] [address] as needed. Medical Branch nystatin 2022-0 Yes 1{dose} Apply 1 Uni vers 100,000 6-16 Dose to ity of unit/gram 00:00: area(s) in [facility] cream 00 the Medical morning. Branch terbinafine 2022-0 Yes 1{dose} Apply 1 Univers HCL 1 % 6-16 Dose to ity of cream 00:00: area(s) in [place] [address] the Medical morning. Branch hydrocortis 2022-0 Yes 1{appli Apply 1 Univers one 2.5 % 6-16 cator} Applicator it y of cream 00:00: to area(s) [place] [address] as needed. Medical Branch nystatin 2022-0 Yes 1{dose} Apply 1 Uni vers 100,000 6-16 Dose to ity of unit/gram 00:00: area(s) in [facility] 00 the Medical morning. Branch terbinafine 2022-0 Yes 1{dose} Apply 1 Univers HCL 1 % 6-16 Dose to ity of cream 00:00: area(s) in [place] 00 the Medical morning. Branch hydrocortis 2022-0 Yes 1{appli Apply 1 Univers one 2.5 % 6-16 cator} Applicator it y of cream 00:00: to area(s) [place] [address] as needed. Medical Branch nystatin 2022-0 Yes 1{dose} Apply 1 Uni vers 100,000 6-16 Dose to ity of unit/gram 00:00: area(s) in [facility] cream 00 the Medical morning. Branch terbinafine 2022-0 Yes 1{dose} Apply 1 Univers HCL 1 % 6-16 Dose to ity of cream 00:00: area(s) in [place] 00 the Medical morning. Branch hydrocortis 2022-0 Yes 1{appli Apply 1 Univers one 2.5 % 6-16 cator} Applicator it y of cream 00:00: to area(s) [place] [address] as needed. Medical Branch nystatin 2022-0 Yes [...] to ity of cream 00:00: area(s) in [place] 00 the Medical morning. Branch hydrocortis 2022-0 Yes 1{appli Apply 1 Univers one 2.5 % 6-16 cator} Applicator it y of cream 00:00: to area(s) [place] [address] as needed. Medical Branch nystatin 2022-0 Yes 1{dose} Apply 1 Uni vers 100,000 6-16 Dose to ity of unit/gram 00:00: area(s) in [place] cream 00 the Medical morning. Branch terbinafine 2022-0 Yes 1{dose} Apply 1 Univers HCL 1 % 6-16 Dose to ity of cream 00:00: area(s) in [place] 00 the Medical morning. Branch hydrocortis 2022-0 Yes 1{appli Apply 1 Univers one 2.5 % 6-16 cator} Applicator it y of cream 00:00: to area(s) [place] 00 as needed. Medical Branch nystatin 2022-0 Yes 1{dose} Apply 1 Uni vers 100,000 6-16 Dose to ity of unit/gram 00:00: area(s) in [place] cream 00 the Medical morning. Branch terbinafine 2022-0 Yes 1{dose} Apply 1 Univers HCL 1 % 6-16 Dose to ity of cream 00:00: area(s) in [place] 00 the Medical morning. Branch hydrocortis 2022-0 Yes 1{appli Apply 1 Univers one 2.5 % 6-16 cator} Applicator it y of cream 00:00: to area(s) [place] 00 as needed. Medical Branch nystatin 2022-0 Yes 1{dose} Apply 1 Uni vers 100,000 6-16 Dose to ity of unit/gram 00:00: area(s) in [place] cream 00 the Medical morning. Branch terbinafine 2022-0 Yes 1{dose} Apply 1 Univers HCL 1 % 6-16 Dose to ity of cream 00:00: area(s) in [place] 00 the Medical morning. Branch hydrocortis 2022-0 Yes 1{appli Apply 1 Univers one 2.5 % 6-16 cator} Applicator it y of cream 00:00: to area(s) [place] [address] as needed. Medical Branch nystatin 2022-0 Yes 1{dose} Apply 1 Uni vers 100,000 6-16 Dose to ity of unit/gram 00:00: area(s) in [facility] cream 00 the Medical morning. Branch terbinafine 2022-0 Yes 1{dose} Apply 1 Univers HCL 1 % 6-16 Dose to ity of cream 00:00: area(s) in [place] 00 the Medical morning. Branch hydrocortis 2022-0 Yes 1{appli Apply 1 Univers one 2.5 % 6-16 cator} Applicator it y of cream 00:00: to area(s) [place] [address] as needed. Medical Branch nystatin 2022-0 Yes 1{dose} Apply 1 Uni vers 100,000 6-16 Dose to ity of unit/gram 00:00: [place] cream 00 the Medical morning. Branch terbinafine 3-0 Yes 1{dose} Apply 1 Univers HCL 1 % 6-16 Dose to ity of cream 00:00: area(s) in [place] 00 the Medical morning. Branch hydrocortis 3-0 Yes 1{appli Apply 1 Univers one 2.5 % 6-16 cator} Applicator it y of cream 00:00: to area(s) [place] [address] as needed. Medical Branch nystatin 2022-0 Yes [...] it y of cream 00:00: to area(s) [place] [address] as needed. Medical Branch nystatin 2022-0 Yes 1{dose} Apply 1 Uni vers 100,000 6-16 Dose to ity of unit/gram 00:00: area(s) in [place] cream 00 the Medical morning. Branch terbinafine 2022-0 Yes 1{dose} Apply 1 Univers HCL 1 % 6-16 Dose to ity of cream 00:00: area(s) in [place] 00 the Medical morning. Branch hydrocortis 2022-0 Yes 1{appli Apply 1 Univers one 2.5 % 6-16 cator} Applicator it y of cream 00:00: to area(s) [place] [address] as needed. Medical Branch nystatin 2022-0 Yes 1{dose} Apply 1 Uni vers 100,000 6-16 Dose to ity of unit/gram 00:00: [place](s[place] cream 00 the Medical morning. Branch terbinafine 2022-0 Yes 1{dose} Apply 1 Univers HCL 1 % 6-16 Dose to ity of cream 00:00: area(s) in [place] 00 the Medical morning. Branch hydrocortis 2022-0 Yes 1{appli Apply 1 Univers one 2.5 % 6-16 cator} Applicator it y of cream 00:00: to area(s) [place] [address] as needed. Medical Branch nystatin 2022-0 Yes [...] it y of cream 00:00: to area(s) [place] [address] as needed. Medical Branch nystatin 3-0 Yes 1{dose} Apply 1 Uni vers 100,000 6-16 Dose to ity of unit/gram 00:00: area(s) in [place] cream 00 the Medical morning. Branch terbinafine 2022-0 Yes 1{dose} Apply 1 Univers HCL 1 % 6-16 Dose to ity of cream 00:00: area(s) in [place] 00 the Medical morning. Branch hydrocortis 2022-0 Yes 1{appli Apply 1 Univers one 2.5 % 6-16 cator} Applicator it y of cream 00:00: to area(s) [place] [address] as needed. Medical Branch nystatin 2022-0 Yes 1{dose} Apply 1 Uni vers 100,000 6-16 Dose to ity of unit/gram 00:00: area(s) in [facility] cream 00 the Medical morning. Branch terbinafine 2022-0 Yes 1{dose} Apply 1 Univers HCL 1 % 6-16 Dose to ity of cream 00:00: area(s) in [place] 00 the Medical morning. Branch hydrocortis 2022-0 Yes 1{appli Apply 1 Univers one 2.5 % 6-16 cator} Applicator it y of cream 00:00: to area(s) [place] [address] as needed. Medical Branch nystatin 2022-0 Yes 1{dose} Apply 1 Uni vers 100,000 6-16 Dose to ity of unit/gram 00:00: area(s) in [facility] cream 00 the Medical morning. Branch terbinafine 2022-0 Yes 1{dose} Apply 1 Univers HCL 1 % 6-16 Dose to ity of cream 00:00: area(s) in [place] 00 the Medical morning. Branch hydrocortis 3-0 Yes 1{appli Apply 1 Univers one 2.5 % 6-16 cator} Applicator it y of cream 00:00: to area(s) [place] [address] as needed. Medical Branch nystatin 2022-0 Yes [...] it y of cream 00:00: to area(s) [place] 00 as needed. Medical Branch nystatin 2022-0 Yes 1{dose} Apply 1 Uni vers 100,000 6-16 Dose to ity of unit/gram 00:00: area(s) in [place] cream 00 the Medical morning. Branch terbinafine 2022-0 Yes 1{dose} Apply 1 Univers HCL 1 % 6-16 Dose to ity of cream 00:00: area(s) in [place] 00 the Medical morning. Branch hydrocortis 2022-0 Yes 1{appli Apply 1 Univers one 2.5 % 6-16 cator} Applicator it y of cream 00:00: to area(s) [place] 00 as needed. Medical Branch nystatin 2022-0 Yes 1{dose} Apply 1 Uni vers 100,000 6-16 Dose to ity of unit/gram 00:00: area(s) [place] cream 00 the Medical morning. Branch terbinafine 2022-0 Yes 1{dose} Apply 1 Univers HCL 1 % 6-16 Dose to ity of cream 00:00: area(s) in [place] 00 the Medical morning. Branch hydrocortis 2022-0 Yes 1{appli Apply 1 Univers one 2.5 % 6-16 cator} Applicator it y of cream 00:00: to area(s) [place] 00 as needed. Medical Branch nystatin 2022-0 Yes 1{dose} Apply 1 Uni vers 100,000 6-16 Dose to ity of unit/gram 00:00: area(s) in [place] cream 00 the Medical morning. Branch terbinafine 2022-0 Yes 1{dose} Apply 1 Univers HCL 1 % 6-16 Dose to ity of cream 00:00: area(s) in [place] 00 the Medical morning. Branch hydrocortis 2022-0 Yes 1{appli Apply 1 Univers one 2.5 % 6-16 cator} Applicator it y of cream 00:00: to area(s) [place] [address] as needed. Medical Branch nystatin 2023-0 Yes 1{dose} Apply 1 Uni vers 100,000 6-16 Dose to ity of unit/gram 00:00: area(s) in [place] cream 00 the Medical morning. Branch terbinafine 2022-0 Yes 1{dose} Apply 1 Univers HCL 1 % 6-16 Dose to ity of cream 00:00: area(s) in [place] 00 the Medical morning. Branch hydrocortis 2022-0 [...] to ity of cream 00:00: area(s) in [place] 00 the Medical morning. Branch hydrocortis 2022-0 Yes 1{appli Apply 1 Univers one 2.5 % 6-16 cator} Applicator it y of cream 00:00: to area(s) [place] [address] as needed. Medical Branch nystatin 2022-0 Yes 1{dose} Apply 1 Uni vers 100,000 6-16 Dose to ity of unit/gram 00:00: area(s) in [place] cream 00 the Medical morning. Branch terbinafine 3-0 Yes 1{dose} Apply 1 Univers HCL 1 % 6-16 Dose to ity of cream 00:00: area(s) in [place] 00 the Medical morning. Branch hydrocortis 3-0 Yes 1{appli Apply 1 Univers one 2.5 % 6-16 cator} Applicator it y of cream 00:00: to area(s) [place] [address] as needed. Medical Branch nystatin 2022-0 Yes [...] it y of cream 00:00: to area(s) [place] [address] as needed. Medical Branch nystatin 2022-0 Yes 1{dose} Apply 1 Uni vers 100,000 6-16 Dose to ity of unit/gram 00:00: area(s[place] in [place] cream 00 the Medical morning. Branch terbinafine 2022-0 Yes 1{dose} Apply 1 Univers HCL 1 % 6-16 Dose to ity of cream 00:00: area(s) in [place] 00 the Medical morning. Branch hydrocortis 2022-0 Yes 1{appli Apply 1 Univers one 2.5 % 6-16 cator} Applicator it y of cream 00:00: to area(s) [place] [address] as needed. Medical Branch nystatin 2022-0 Yes 1{dose} Apply 1 Uni vers 100,000 6-16 Dose to ity of unit/gram 00:00: area(s) [place] cream 00 the Medical morning. Branch hydrocortis 2022-0 Yes 1{appli Apply 1 Univers one 2.5 % 6-16 cator} Applicator it y of cream 00:00: to area(s) [place] [address] as needed. Medical Branch nystatin 2022-0 Yes 1{dose} Apply 1 Uni vers 100,000 6-16 Dose to ity of unit/gram 00:00: area(s) in [place] cream 00 the Medical morning. Branch hydrocortis 2022-0 Yes 1{appli Apply 1 Univers one 2.5 % 6-16 cator} Applicator it y of cream 00:00: to area(s) [place] [address] as needed. Medical Branch nystatin 2022-0 Yes 1{dose} Apply 1 Uni vers 100,000 6-16 Dose to ity of unit/gram 00:00: area(s) in [place] cream 00 the Medical morning. Branch hydrocortis 2022-0 Yes 1{appli Apply 1 Univers one 2.5 % 6-16 cator} Applicator it y of cream 00:00: to area(s) [place] [address] as needed. Medical Branch nystatin 2022-0 Yes 1{dose} Apply 1 Uni vers 100,000 6-16 Dose to ity of unit/gram 00:00: area(s) in [place] cream 00 the Medical morning. Branch hydrocortis 2022-0 Yes 1{appli Apply 1 [facility] one 2.5 % 6-16 cator} Applicator it y of cream 00:00: to area(s) [place] 00 as needed. Medical Branch nystatin 2022-0 Yes 1{dose} Apply 1 Uni vers 100,000 6-16 Dose to ity of unit/gram 00:00: area(s) in [place] cream 00 the Medical morning. Branch hydrocortis 2022-0 Yes 1{appli Apply 1 [facility] one 2.5 % 6-16 cator} Applicator it y of cream 00:00: to area(s) [place] 00 as needed. Medical Branch nystatin 2022-0 Yes 1{dose} Apply 1 Uni vers 100,000 6-16 Dose to ity of unit/gram 00:00: area(s) in [place] cream 00 the Medical morning. Branch hydrocortis 2022-0 Yes 1{appli Apply 1 [facility] one 2.5 % 6-16 cator} Applicator it y of cream 00:00: to area(s) [place] 00 as needed. Medical Branch nystatin 2022-0 Yes 1{dose} Apply 1 Uni vers 100,000 6-16 Dose to ity of unit/gram 00:00: area(s) in [place] cream 00 the Medical morning. Branch hydrocortis 2022-0 Yes 1{appli Apply 1 Univers one 2.5 % 6-16 cator} Applicator it y of cream 00:00: to area(s) [place] 00 as needed. Medical Branch nystatin 2022-0 Yes 1{dose} Apply 1 Uni vers 100,000 6-16 Dose to ity of unit/gram 00:00: area(s) in [place] cream 00 the Medical morning. Branch hydrocortis 2022-0 Yes 1{appli Apply 1 [facility] one 2.5 % 6-16 cator} Applicator it y of cream 00:00: to area(s) [place] 00 as needed. Medical Branch nystatin 2022-0 Yes 1{dose} Apply 1 Uni vers 100,000 6-16 Dose to ity of unit/gram 00:00: area(s) in [place] cream 00 the Medical morning. Branch hydrocortis 2022-0 Yes 1{appli Apply 1 [facility] one 2.5 % 6-16 cator} Applicator it y of cream 00:00: to area(s) [place] 00 as needed. Medical Branch nystatin 2022-0 Yes 1{dose} Apply 1 Uni vers 100,000 6-16 Dose to ity of unit/gram 00:00: area(s) in [place] cream 00 the Medical morning. Branch hydrocortis 2022-0 Yes 1{appli Apply 1 Univers one 2.5 % 6-16 cator} Applicator it y of cream 00:00: to area(s) [place] 00 as needed. Medical Branch nystatin 2022-0 Yes 1{dose} Apply 1 Uni vers 100,000 6-16 Dose to ity of unit/gram 00:00: area(s) in [place] cream 00 the Medical morning. Branch hydrocortis 2022-0 Yes 1{appli Apply 1 [facility] one 2.5 % 6-16 cator} Applicator it y of cream 00:00: to area(s) [place] 00 as needed. Medical Branch nystatin 2022-0 Yes 1{dose} Apply 1 Uni vers 100,000 6-16 Dose to ity of unit/gram 00:00: area(s) in [place] cream 00 the Medical morning. Branch hydrocortis 2022-0 Yes 1{appli Apply 1 [facility] one 2.5 % 6-16 cator} Applicator it y of cream 00:00: to area(s) [place] 00 as needed. Medical Branch nystatin 2022-0 Yes 1{dose} Apply 1 Uni vers 100,000 6-16 Dose to ity of unit/gram 00:00: area(s) in [place] cream 00 the Medical morning. Branch hydrocortis 2022-0 Yes 1{appli Apply 1 [facility] one 2.5 % 6-16 cator} Applicator it y of cream 00:00: to area(s) [place] 00 as needed. Medical Branch nystatin 2022-0 Yes 1{dose} Apply 1 Uni vers 100,000 6-16 Dose to ity of unit/gram 00:00: area(s) in [place] cream 00 the Medical morning. Branch hydrocortis 2022-0 Yes 1{appli Apply 1 [facility] one 2.5 % 6-16 cator} Applicator it y of cream 00:00: to area(s) [place] 00 as needed. Medical Branch nystatin 2022-0 Yes 1{dose} Apply 1 Uni vers 100,000 6-16 Dose to ity of unit/gram 00:00: area(s) in [place] cream 00 the Medical morning. Branch hydrocortis 2022-0 Yes 1{appli Apply 1 [facility] one 2.5 % 6-16 cator} Applicator it y of cream 00:00: to area(s) [place] 00 as needed. Medical Branch nystatin 2022-0 Yes 1{dose} Apply 1 Uni vers 100,000 6-16 Dose to ity of unit/gram 00:00: area(s) in [place] cream 00 the Medical morning. Branch hydrocortis 2022-0 Yes 1{appli Apply 1 Univers one 2.5 % 6-16 cator} Applicator it y of cream 00:00: to area(s) [place] 00 as needed. Medical Branch nystatin 2022- Yes 1{dose} Apply 1 Uni vers 100,000 6-16 Dose to ity of unit/gram 00:00: area(s) in [place] cream 00 the Medical morning. Branch hydrocortis 2022-0 Yes 1{appli Apply 1 [facility] one 2.5 % 6-16 cator} Applicator it y of cream 00:00: to area(s) [place] 00 as needed. Medical Branch nystatin 2022-0 Yes 1{dose} Apply 1 Uni vers 100,000 6-16 Dose to ity of unit/gram 00:00: area(s) in [place] cream 00 the Medical morning. Branch hydrocortis 2022-0 Yes 1{appli Apply 1 [facility] one 2.5 % 6-16 cator} Applicator it y of cream 00:00: to area(s) [place] 00 as needed. Medical Branch nystatin 2022-0 Yes 1{dose} Apply 1 Uni vers 100,000 6-16 Dose to ity of unit/gram 00:00: area(s) in [place] cream 00 the Medical morning. Branch hydrocortis 2022-0 Yes 1{appli Apply 1 [facility] one 2.5 % 6-16 cator} Applicator it y of cream 00:00: to area(s) [place] 00 as needed. Medical Branch nystatin 2022-0 Yes 1{dose} Apply 1 Uni vers 100,000 6-16 Dose to ity of unit/gram 00:00: area(s) in [place] cream 00 the Medical morning. Branch hydrocortis 2022-0 Yes 1{appli Apply 1 [facility] one 2.5 % 6-16 cator} Applicator it y of cream 00:00: to area(s) [place] 00 as needed. Medical Branch nystatin 2022-0 Yes 1{dose} Apply 1 Uni vers 100,000 6-16 Dose to ity of unit/gram 00:00: area(s) in [place] cream 00 the Medical morning. Branch hydrocortis 2022-0 Yes 1{appli Apply 1 [facility] one 2.5 % 6-16 cator} Applicator it y of cream 00:00: to area(s) [place] 00 as needed. Medical Branch nystatin 2022-0 Yes 1{dose} Apply 1 Uni vers 100,000 6-16 Dose to ity of unit/gram 00:00: area(s) in [place] cream 00 the Medical morning. Branch hydrocortis 2022-0 Yes 1{appli Apply 1 [facility] one 2.5 % 6-16 cator} Applicator it y of cream 00:00: to area(s) [place] 00 as needed. Medical Branch nystatin 2022-0 Yes 1{dose} Apply 1 [facility] vers 100,000 6-16 Dose to ity of unit/gram 00:00: area(s) in [place] cream 00 the Medical morning. Branch hydrocortis 2022-0 Yes 1{appli Apply 1 [facility] one 2.5 % 6-16 cator} Applicator it y of cream 00:00: to area(s) [place] 00 as needed. Medical Branch nystatin 2022-0 Yes 1{dose} Apply 1 [facility] vers 100,000 6-16 Dose to ity of unit/gram 00:00: area(s) in [place] cream 00 the Medical morning. Branch hydrocortis 2022-0 Yes 1{appli Apply 1 [facility] one 2.5 % 6-16 cator} Applicator it y of cream 00:00: to area(s) [place] 00 as needed. Medical Branch nystatin 2023-0 Yes 1{dose} Apply 1 [facility] vers 100,000 6-16 Dose to ity of unit/gram 00:00: area(s) in [place] cream 00 the Medical morning. Branch terbinafine 2022- No 1{dose} Apply 1 [facility] HCL 1 % 6-16 08-08 Dose to ity of cream 00:00: 00:00 area(s) in [place] 00 :00 the Medical morning. Branch terbinafine 2022- No 1{dose} Apply 1 [facility] HCL 1 % 6-16 08-08 Dose to ity of cream 00:00: 00:00 area(s) in [place] 00 :00 the Medical morning. Branch terbinafine 2022- No 1{dose} Apply 1 [facility] HCL 1 % 6-16 08-08 Dose to ity of cream 00:00: 00:00 area(s) in [place] 00 :00 the Medical morning. Branch terbinafine 2022- No 1{dose} Apply 1 [facility] HCL 1 % 6-16 08-08 Dose to ity of cream 00:00: 00:00 area(s) in [place] 00 :00 the Medical morning. Branch metoprolol 2022-0 Yes [id number] 25mg Take 1 [facility] nivers succinate 6-06 tablet by ity o f XL 25 mg 24 00:00: mouth in [place] hr tablet 00 the Medical morning. Branch metoprolol 2022-0 Yes [id number] 25mg Take 1 [facility] nivers succinate 6-06 tablet by ity o f XL 25 mg 24 00:00: mouth in [place] hr tablet 00 the Medical morning. Branch metoprolol 2022-0 Yes [id number] 25mg Take 1 [facility] nivers succinate 6-06 tablet by ity o f XL 25 mg 24 00:00: mouth in [place] hr tablet 00 the Medical morning. Branch metoprolol 2022-0 Yes [id number] 25mg Take 1 [facility] nivers succinate 6-06 tablet by ity o f XL 25 mg 24 00:00: mouth in [place] hr tablet 00 the Medical morning. Branch metoprolol 2022-0 Yes [id number] 25mg Take 1 [facility] nivers succinate 6-06 tablet by ity o f XL 25 mg 24 00:00: mouth in [place] hr tablet 00 the Medical morning. Branch metoprolol 3-0 Yes [id number] 25mg Take 1 [facility] nivers succinate 6-06 tablet by ity o f XL 25 mg 24 00:00: mouth in [place] hr tablet 00 the Medical morning. Branch metoprolol 2023-0 Yes [id number] 25mg Take 1 [facility] nivers succinate 6-06 tablet by ity o f XL 25 mg 24 00:00: mouth in [place] hr tablet 00 the Medical morning. Branch metoprolol 2023-0 Yes [id number] 25mg Take 1 [facility] nivers succinate 6-06 tablet by ity o f XL 25 mg 24 00:00: mouth in [place] hr tablet 00 the Medical morning. Branch metoprolol 2023-0 Yes [id number] 25mg Take 1 [facility] nivers succinate 6-06 tablet by ity o f XL 25 mg 24 00:00: mouth in [place] hr tablet 00 the Medical morning. Branch metoprolol 3-0 Yes [id number] 25mg Take 1 [facility] nivers succinate 6-06 tablet by ity o f XL 25 mg 24 00:00: mouth in [place] hr tablet 00 the Medical morning. Branch metoprolol 3-0 Yes [id number] 25mg Take 1 [facility] nivers succinate 6-06 tablet by ity o f XL 25 mg 24 00:00: mouth in [place] hr tablet 00 the Medical morning. Branch metoprolol 3-0 Yes [id number] 25mg Take 1 [facility] nivers succinate 6-06 tablet by ity o f XL 25 mg 24 00:00: mouth in [place] hr tablet 00 the Medical morning. Branch metoprolol 3-0 Yes [id number] 25mg Take 1 [facility] nivers succinate 6-06 tablet by ity o f XL 25 mg 24 00:00: mouth in [place] hr tablet 00 the Medical morning. Branch metoprolol 2023-0 Yes [id number] 25mg Take 1 [facility] nivers succinate 6-06 tablet by ity o f XL 25 mg 24 00:00: mouth in [place] hr tablet 00 the Medical morning. Branch metoprolol 2023-0 Yes [id number] 25mg Take 1 [facility] nivers succinate 6-06 tablet by ity o f XL 25 mg 24 00:00: mouth in [place] hr tablet 00 the Medical morning. Branch metoprolol 3-0 Yes [id number] 25mg Take 1 [facility] nivers succinate 6-06 tablet by ity o f XL 25 mg 24 00:00: mouth in [place] hr tablet 00 the Medical morning. Branch metoprolol 3-0 Yes [id number] 25mg Take 1 [facility] nivers succinate 6-06 tablet by ity o f XL 25 mg 24 00:00: mouth in [place] hr tablet 00 the Medical morning. Branch metoprolol 3-0 Yes [id number] 25mg Take 1 [facility] nivers succinate 6-06 tablet by ity o f XL 25 mg 24 00:00: mouth in [place] hr tablet 00 the Medical morning. Branch metoprolol 3-0 Yes [id number] 25mg Take 1 [facility] nivers succinate 6-06 tablet by ity o f XL 25 mg 24 00:00: mouth in [place] hr tablet 00 the Medical morning. Branch metoprolol 2022-0 Yes [id number] 25mg Take 1 [facility] nivers succinate 6-06 tablet by ity o f XL 25 mg 24 00:00: mouth in [place] hr tablet 00 the Medical morning. Branch metoprolol 2022-0 Yes [id number] 25mg Take 1 [facility] nivers succinate 6-06 tablet by ity o f XL 25 mg 24 00:00: mouth in [place] hr tablet 00 the Medical morning. Branch metoprolol 3-0 Yes [id number] 25mg Take 1 [facility] nivers succinate 6-06 tablet by ity o f XL 25 mg 24 00:00: mouth in [place] hr tablet 00 the Medical morning. Branch metoprolol 3-0 Yes [id number] 25mg Take 1 [facility] nivers succinate 6-06 tablet by ity o f XL 25 mg 24 00:00: mouth in [place] hr tablet 00 the Medical morning. Branch metoprolol 3-0 Yes [id number] 25mg Take 1 [facility] nivers succinate 6-06 tablet by ity o f XL 25 mg 24 00:00: mouth in [place] hr tablet 00 the Medical morning. Branch metoprolol 3-0 2023- No [id number] 25mg Take 1 [facility] succinate 6-06 07-13 tablet by ity of XL 25 mg 24 00:00: 00:00 mouth in [place] hr tablet 00 :00 the Medical morning. Branch metoprolol 2022-0 2022- No [id number] 25mg Take 1 [facility] succinate 12-22-13 tablet by ity of XL 25 mg 24 00:00: 00:00 mouth in [place] hr tablet 00 :00 the Medical morning. Branch metoprolol 2022-0 2022- No [id number] 25mg Take 1 [facility] succinate 12-22-13 tablet [...] :00 every Medical CpPk morning. Branch cariprazine 2022-2022- No 1.5mg Take 1.5 [facility] (VRAYLAR) 6-05 06-05 mg by ity of 1.5 mg (1)- 08:42: [place] 3 mg (6) 24 :00 every Medical CpPk morning. Branch SUMAtriptan 2022-0 Yes [id number] 100mg Take 1 [facility] 100 mg 6-05 [...] days in a week. SUMAtriptan 2022-0 Yes [id number] 100mg Take 1 [facility] 100 mg 6-05 [...] days in a week. SUMAtriptan 2023-0 Yes [id number] 100mg Take 1 [facility] 100 mg 6-05 [...] days in a week. SUMAtriptan 2023-0 Yes [id number] 100mg Take 1 [facility] 100 mg 6-05 [...] days in a week. SUMAtriptan 2023-0 Yes [id number] 100mg Take 1 [facility] 100 mg 6-05 [...] days in a week. SUMAtriptan 2023-0 Yes [id number] 100mg Take 1 [facility] 100 mg 6-05 [...] days in a week. SUMAtriptan 2023-0 Yes [id number] 100mg Take 1 [facility] 100 mg 6-05 [...] days in a week. SUMAtriptan 2023-0 Yes [id number] 100mg Take 1 [facility] 100 mg 6-05 [...] days in a week. SUMAtriptan 2023-0 Yes [id number] 100mg Take 1 [facility] 100 mg 6-05 [...] days in a week. SUMAtriptan 2023-0 Yes [id number] 100mg Take 1 [facility] 100 mg 6-05 [...] days in a week. SUMAtriptan 2023-0 Yes [id number] 100mg Take 1 [facility] 100 mg 6-05 [...] days in a week. SUMAtriptan 2023-0 Yes [id number] 100mg Take 1 [facility] 100 mg 6-05 [...] days in a week. SUMAtriptan 2023-0 Yes [id number] 100mg Take 1 [facility] 100 mg 6-05 [...] days in a week. SUMAtriptan 2023-0 Yes [id number] 100mg Take 1 [facility] 100 mg 6-05 [...] days in a week. SUMAtriptan 2023-0 Yes [id number] 100mg Take 1 [facility] 100 mg 6-05 [...] days in a week. SUMAtriptan 2023-0 Yes [id number] 100mg Take 1 [facility] 100 mg 6-05 [...] days in a week. SUMAtriptan 2023-0 Yes [id number] 100mg Take 1 [facility] 100 mg 6-05 [...] days in a week. SUMAtriptan 2023-0 Yes [id number] 100mg Take 1 [facility] 100 mg 6-05 [...] days in a week. SUMAtriptan 2023-0 Yes [id number] 100mg Take 1 [facility] 100 mg 6-05 [...] days in a week. SUMAtriptan 2023-0 Yes [id number] 100mg Take 1 [facility] 100 mg 6-05 [...] days in a week. SUMAtriptan 2023-0 Yes [id number] 100mg Take 1 [facility] 100 mg 6-05 [...] days in a week. SUMAtriptan 2023-0 Yes [id number] 100mg Take 1 [facility] 100 mg 6-05 [...] days in a week. SUMAtriptan 2023-0 Yes [id number] 100mg Take 1 [facility] 100 mg 6-05 [...] days in a week. SUMAtriptan 2023-0 Yes [id number] 100mg Take 1 [facility] 100 mg 6-05 [...] days in a week. SUMAtriptan 2023-0 Yes [id number] 100mg Take 1 [facility] 100 mg 6-05 [...] days in a week. SUMAtriptan 2023-0 Yes [id number] 100mg Take 1 [facility] 100 mg 6-05 [...] days in a week. SUMAtriptan 2023-0 Yes [id number] 100mg Take 1 [facility] 100 mg 6-05 [...] days in a week. SUMAtriptan 2023-0 Yes [id number] 100mg Take 1 [facility] 100 mg 6-05 [...] days in a week. SUMAtriptan 2023-0 Yes [id number] 100mg Take 1 [facility] 100 mg 6-05 [...] days in a week. SUMAtriptan 2023-0 Yes [id number] 100mg Take 1 [facility] 100 mg 6-05 [...] days in a week. SUMAtriptan 2023-0 Yes [id number] 100mg Take 1 [facility] 100 mg 6-05 [...] days in a week. SUMAtriptan 2023-0 Yes [id number] 100mg Take 1 [facility] 100 mg 6-05 [...] days in a week. SUMAtriptan 2023-0 Yes [id number] 100mg Take 1 [facility] 100 mg 6-05 [...] days in a week. SUMAtriptan 2023-0 Yes [id number] 100mg Take 1 [facility] 100 mg 6-05 [...] days in a week. SUMAtriptan 2023-0 Yes [id number] 100mg Take 1 [facility] 100 mg 6-05 [...] days in a week. SUMAtriptan 2023-0 Yes [id number] 100mg Take 1 [facility] 100 mg 6-05 [...] days in a week. SUMAtriptan 2023-0 Yes [id number] 100mg Take 1 [facility] 100 mg 6-05 [...] days in a week. SUMAtriptan 2023-0 Yes [id number] 100mg Take 1 [facility] 100 mg 6-05 [...] days in a week. SUMAtriptan 2023-0 Yes [id number] 100mg Take 1 [facility] 100 mg 6-05 [...] days in a week. SUMAtriptan 2023-0 Yes [id number] 100mg Take 1 [facility] 100 mg 6-05 [...] days in a week. SUMAtriptan 2023-0 Yes [id number] 100mg Take 1 [facility] 100 mg 6-05 [...] days in a week. SUMAtriptan 2023-0 Yes [id number] 100mg Take 1 [facility] 100 mg 6-05 [...] days in a week. SUMAtriptan 2023-0 Yes [id number] 100mg Take 1 [facility] 100 mg 6-05 [...] days in a week. SUMAtriptan 2023-0 Yes [id number] 100mg Take 1 [facility] 100 mg 6-05 [...] days in a week. SUMAtriptan 2023-0 Yes [id number] 100mg Take 1 [facility] 100 mg 6-05 [...] days in a week. SUMAtriptan 2023-0 Yes [id number] 100mg Take 1 [facility] 100 mg 6-05 [...] days in a week. SUMAtriptan 2023-0 Yes [id number] 100mg Take 1 [facility] 100 mg 6-05 [...] days in a week. SUMAtriptan 2023-0 Yes [id number] 100mg Take 1 [facility] 100 mg 6-05 [...] days in a week. SUMAtriptan 2023-0 Yes [id number] 100mg Take 1 [facility] 100 mg 6-05 [...] days in a week. SUMAtriptan 2023-0 Yes [id number] 100mg Take 1 [facility] 100 mg 6-05 [...] days in a week. SUMAtriptan 2023-0 Yes [id number] 100mg Take 1 [facility] 100 mg 6-05 [...] days in a week. SUMAtriptan 2023-0 Yes [id number] 100mg Take 1 [facility] 100 mg 6-05 [...] days in a week. SUMAtriptan 2023-0 Yes [id number] 100mg Take 1 [facility] 100 mg 6-05 [...] days in a week. SUMAtriptan 2023-0 Yes [id number] 100mg Take 1 [facility] 100 mg 6-05 [...] days in a week. SUMAtriptan 2023-0 Yes [id number] 100mg Take 1 [facility] 100 mg 6-05 [...] days in a week. SUMAtriptan 2023-0 Yes [id number] 100mg Take 1 [facility] 100 mg 6-05 [...] days in a week. SUMAtriptan 2023-0 Yes [id number] 100mg Take 1 [facility] 100 mg 6-05 [...] days in a week. SUMAtriptan 2023-0 Yes [id number] 100mg Take 1 [facility] 100 mg 6-05 [...] days in a week. SUMAtriptan 2023-0 Yes [id number] 100mg Take 1 [facility] 100 mg 6-05 [...] days in a week. SUMAtriptan 2023-0 Yes [id number] 100mg Take 1 [facility] 100 mg 6-05 [...] days in a week. SUMAtriptan 2023-0 Yes [id number] 100mg Take 1 [facility] 100 mg 6-05 [...] days in a week. SUMAtriptan 2023-0 Yes [id number] 100mg Take 1 [facility] 100 mg 6-05 [...] days in a week. SUMAtriptan 2023-0 Yes [id number] 100mg Take 1 [facility] 100 mg 6-05 [...] days in a week. SUMAtriptan 2023-0 Yes [id number] 100mg Take 1 [facility] 100 mg 6-05 [...] days in a week. SUMAtriptan 2023-0 Yes [id number] 100mg Take 1 [facility] 100 mg 6-05 [...] days in a week. SUMAtriptan 2023-0 Yes [id number] 100mg Take 1 [facility] 100 mg 6-05 [...] days in a week. SUMAtriptan 2023-0 Yes [id number] 100mg Take 1 [facility] 100 mg 6-05 [...] days in a week. SUMAtriptan 2023-0 Yes [id number] 100mg Take 1 [facility] 100 mg 6-05 [...] days in a week. SUMAtriptan 2023-0 Yes [id number] 100mg Take 1 [facility] 100 mg 6-05 [...] days in a week. SUMAtriptan 2023-0 Yes [id number] 100mg Take 1 [facility] 100 mg 6-05 [...] days in a week. benzonatate 2023-0 Yes [id number] 100mg Take 1 [facility] 100 mg 5-22 capsule by ity of capsule 00:00: mouth 3 [place] 00 (three) Medical times Branch daily as needed for Cough. benzonatate 2023-0 Yes [id number] 100mg Take 1 [facility] 100 mg 5-22 capsule by ity of capsule 00:00: mouth 3 [place] 00 (three) Medical times Branch daily as needed for Cough. benzonatate 2023-0 Yes [id number] 100mg Take 1 [facility] 100 mg 5-22 capsule by ity of capsule 00:00: mouth 3 [place] 00 (three) Medical times Branch daily as needed for Cough. benzonatate 2023-0 Yes [id number] 100mg Take 1 [facility] 100 mg 5-22 capsule by ity of capsule 00:00: mouth 3 [place] 00 (three) Medical times Branch daily as needed for Cough. benzonatate 2023-0 Yes [id number] 100mg Take 1 [facility] 100 mg 5-22 capsule by ity of capsule 00:00: mouth 3 [place] 00 (three) Medical times Branch daily as needed for Cough. azithromyci 3-0 Yes 260mg Take 6.5 U [...] Branch triamcinolo 2023-0 Yes 1{appli Apply 1 [facility] ne 22 cator} Applicator ity of acetonide 00:00: to area(s) [place] 0.1 % cream 00 as needed. Me dical Branch azithromyci 3-0 Yes 260mg Take 6.5 U nivers n 200 mg/5 5-22 mL by ity of mL 00:00: mouth in [place] suspension 00 the Medical morning. Branch triamcinolo 3-0 Yes 1{appli Apply 1 [facility] ne 5 cator} Applicator ity of acetonide 00:00: to area(s) [place] 0.1 % cream 00 as needed. Me dical Branch azithromyci 3-0 Yes 260mg Take 6.5 U nivers n 200 mg/5 5-22 mL by ity of mL 00:00: mouth in [place] suspension 00 the Medical morning. Branch triamcinolo 3-0 Yes 1{appli Apply 1 [facility] ne 12-07 cator} Applicator ity of acetonide 00:00: to area(s) [place] 0.1 % cream 00 as needed. Me dical Branch azithromyci 3-0 Yes 260mg Take 6.5 U nivers n 200 mg/5 5-22 mL by ity of mL 00:00: mouth in [place] suspension 00 the Medical morning. Branch triamcinolo 3-0 Yes 1{appli Apply 1 [facility] ne 12-07 cator} Applicator ity of acetonide 00:00: to area(s) [place] 0.1 % cream 00 as needed. Me dical Branch azithromyci 3-0 Yes 260mg Take 6.5 U nivers n 200 mg/5 5-22 mL by ity of mL 00:00: mouth in [place] suspension 00 the Medical morning. Branch triamcinolo 3-0 Yes 1{appli Apply 1 [facility] ne 5-22 cator} Applicator ity of acetonide [...] 3-0 Yes 1{appli Apply 1 [facility] ne -22 cator} Applicator ity of acetonide 00:00: to [...] [place] suspension the Medical morning. Branch triamcinolo 2023-0 Yes [...] 3-0 Yes 1{appli Apply 1 [facility] ne -22 cator} Applicator ity of acetonide 00:00: to [...] 00 as needed. Me dical Branch azithromyci 2022-0 Yes 260mg Take 6.5 U nivers n 200 mg/5 5-22 mL by ity of mL 00:00: mouth in [place] suspension 00 the Medical morning. Branch triamcinolo 2022-0 Yes 1{appli Apply 1 [facility] ne 12-07 cator} Applicator ity of acetonide 00:00: to area(s) [place] 0.1 % cream 00 as needed. Me dical Branch azithromyci 2022-0 Yes 260mg Take 6.5 U nivers n 200 mg/5 5-22 mL by ity of mL 00:00: mouth in [place] suspension 00 the Medical morning. Branch triamcinolo 2022-0 Yes 1{appli Apply 1 [facility] ne 12-07 cator} Applicator ity of acetonide 00:00: to area(s) [place] 0.1 % cream 00 as needed. Me dical Branch azithromyci 2022-0 Yes 260mg Take 6.5 U nivers n 200 mg/5 5-22 mL by ity of mL 00:00: mouth in [place] suspension 00 the Medical morning. Branch triamcinolo 2022-0 Yes 1{appli Apply 1 [facility] ne 12-07 cator} Applicator ity of acetonide 00:00: to area(s) [place] 0.1 % cream 00 as needed. Me dical Branch azithromyci 2022-0 Yes 260mg Take 6.5 U nivers n 200 mg/5 5-22 mL by ity of mL 00:00: mouth in [place] suspension 00 the Medical morning. Branch triamcinolo 2022-0 Yes 1{appli Apply 1 [facility] ne 12-07 cator} Applicator ity of acetonide 00:00: to area(s) [place] 0.1 % cream 00 as needed. Me dical Branch benzonatate 2022-0 3- No [id number] 100mg Take 1 [facility] 100 mg 5-22 06-05 capsule by ity of capsule 00:00: 00:00 mouth 3 [place] 00 :00 (three) Medical times Branch daily as needed for Cough. benzonatate 2022-0 3- No [id number] 100mg Take 1 [facility] 100 mg 5-22 06-05 capsule by ity of capsule 00:00: 00:00 mouth 3 [place] 00 :00 (three) Medical times Branch daily as needed for Cough. benzonatate 2022-0 3- No [id number] 100mg Take 1 [facility] 100 mg 5-22 06-05 capsule by ity of capsule 00:00: 00:00 mouth 3 [place] 00 :00 (three) Medical times Branch daily [...] y of mg Cap 11:09: mouth in [address] and 1 capsule in the evening. cariprazine 2023-0 Yes 1{capsu Take 1 U nivers (VRAYLAR) 3 5-04 le} capsule by it y of mg Cap 11:09: mouth in [address] and 1 capsule in the evening. cariprazine 2023-0 Yes 1{capsu Take 1 U nivers (VRAYLAR) 3 5-04 le} capsule by it y of mg Cap 11:09: mouth in [address] and 1 capsule in the evening. cariprazine 2023-0 Yes 1{capsu Take 1 U nivers (VRAYLAR) 3 5-04 le} capsule by it y of mg Cap 11:09: mouth in [address] and 1 capsule in the evening. cariprazine 2023-0 Yes 1{capsu Take 1 U nivers (VRAYLAR) 3 5-04 le} capsule by it y of mg Cap 11:09: mouth in [address] and 1 capsule in the evening. cariprazine 2023-0 Yes 1{capsu Take 1 U nivers (VRAYLAR) 3 5-04 le} capsule by it y of mg Cap 11:09: mouth in [address] and 1 capsule in the evening. cariprazine 2023-0 Yes 1{capsu Take 1 U nivers (VRAYLAR) 3 5-04 le} capsule by it y of mg Cap 11:09: mouth in [address] and 1 capsule in the evening. cariprazine 2023-0 Yes 1{capsu Take 1 U nivers (VRAYLAR) 3 5-04 le} capsule by it y of mg Cap 11:09: mouth in [address] and 1 capsule in the evening. cariprazine 2023-0 Yes 1{capsu Take 1 U nivers (VRAYLAR) 3 5-04 le} capsule by it y of mg Cap 11:09: mouth in [address] and 1 capsule in the evening. cariprazine 2023-0 Yes 1{capsu Take 1 U nivers (VRAYLAR) 3 5-04 le} capsule by it y of mg Cap 11:09: mouth in [address] and 1 capsule in the evening. cariprazine 2023-0 Yes 1{capsu Take 1 U nivers (VRAYLAR) 3 5-04 le} capsule by it y of mg Cap 11:09: mouth in [address] and 1 capsule in the evening. cariprazine 2023-0 Yes 1{capsu Take 1 U nivers (VRAYLAR) 3 5-04 le} capsule by it y of mg Cap 11:09: mouth in [address] and 1 capsule in the evening. cariprazine 2023-0 Yes 1{capsu Take 1 U nivers (VRAYLAR) 3 5-04 le} capsule by it y of mg Cap 11:09: mouth in [address] and 1 capsule in the evening. cariprazine 2023-0 Yes 1{capsu Take 1 U nivers (VRAYLAR) 3 5-04 le} capsule by it y of mg Cap 11:09: mouth in [address] and 1 capsule in the evening. cariprazine 2023-0 Yes 1{capsu Take 1 U nivers (VRAYLAR) 3 5-04 le} capsule by it y of mg Cap 11:09: mouth in [address] and 1 capsule in the evening. cariprazine 2023-0 Yes 1{capsu Take 1 U nivers (VRAYLAR) 3 5-04 le} capsule by it y of mg Cap 11:09: mouth in [address] and 1 capsule in the evening. cariprazine 2023-0 Yes 1{capsu Take 1 U nivers (VRAYLAR) 3 5-04 le} capsule by it y of mg Cap 11:09: mouth in [address] and 1 capsule in the evening. cariprazine 2023-0 Yes 1{capsu Take 1 U nivers (VRAYLAR) 3 5-04 le} capsule by it y of mg Cap 11:09: mouth in [address] and 1 capsule in the evening. cariprazine 2023-0 Yes 1{capsu Take 1 U nivers (VRAYLAR) 3 5-04 le} capsule by it y of mg Cap 11:09: mouth in [address] and 1 capsule in the evening. cariprazine 2023-0 Yes 1{capsu Take 1 U nivers (VRAYLAR) 3 5-04 le} capsule by it y of mg Cap 11:09: mouth in [address] and 1 capsule in the evening. cariprazine 2023-0 Yes 1{capsu Take 1 U nivers (VRAYLAR) 3 5-04 le} capsule by it y of mg Cap 11:09: mouth in [address] and 1 capsule in the evening. cariprazine 2023-0 Yes 1{capsu Take 1 U nivers (VRAYLAR) 3 5-04 le} capsule by it y of mg Cap 11:09: mouth in [address] and 1 capsule in the evening. cariprazine 2023-0 Yes 1{capsu Take 1 U nivers (VRAYLAR) 3 5-04 le} capsule by it y of mg Cap 11:09: mouth in [address] and 1 capsule in the evening. cariprazine 2023-0 Yes 1{capsu Take 1 U nivers (VRAYLAR) 3 5-04 le} capsule by it y of mg Cap 11:09: mouth in [address] and 1 capsule in the evening. cariprazine 2023-0 Yes 1{capsu Take 1 U nivers (VRAYLAR) 3 5-04 le} capsule by it y of mg Cap 11:09: mouth in [address] and 1 capsule in the evening. cariprazine 2023-0 Yes 1{capsu Take 1 U nivers (VRAYLAR) 3 5-04 le} capsule by it y of mg Cap 11:09: mouth in [address] and 1 capsule in the evening. cariprazine 2023-0 Yes 1{capsu Take 1 U nivers (VRAYLAR) 3 5-04 le} capsule by it y of mg Cap 11:09: mouth in [address] and 1 capsule in the evening. cariprazine 2023-0 Yes 1{capsu Take 1 U nivers (VRAYLAR) 3 5-04 le} capsule by it y of mg Cap 11:09: mouth in [address] and 1 capsule in the evening. cariprazine 2023-0 Yes 1{capsu Take 1 U nivers (VRAYLAR) 3 5-04 le} capsule by it y of mg Cap 11:09: mouth in [address] and 1 capsule in the evening. cariprazine 3-0 Yes 1{capsu Take 1 U nivers (VRAYLAR) 3 5-04 le} capsule by it y of mg Cap 11:09: mouth in [address] and 1 capsule in the evening. cariprazine 2023-0 Yes 1{capsu Take 1 U nivers (VRAYLAR) 3 5-04 le} capsule by it y of mg Cap 11:09: mouth in [address] and 1 capsule in the evening. cariprazine 2023-0 Yes 1{capsu Take 1 U nivers (VRAYLAR) 3 5-04 le} capsule by it y of mg Cap 11:09: mouth in [address] and 1 capsule in the evening. cariprazine 2023-0 Yes 1{capsu Take 1 U nivers (VRAYLAR) 3 5-04 le} capsule by it y of mg Cap 11:09: mouth in [address] and 1 capsule in the evening. cariprazine 2023-0 Yes 1{capsu Take 1 U nivers (VRAYLAR) 3 5-04 le} capsule by it y of mg Cap 11:09: mouth in [place] [address] the Medical morning Branch and 1 capsule in the evening. cariprazine 2023-0 Yes 1{capsu Take 1 U nivers (VRAYLAR) 3 5-04 le} capsule by it y of mg Cap 11:09: mouth in [place] [address] the Medical morning Branch and 1 capsule in the evening. cariprazine 2023-0 Yes 1{capsu Take 1 U nivers (VRAYLAR) 3 5-04 le} capsule by it y of mg Cap 11:09: mouth in [place] [address] the Medical morning Branch and 1 capsule in the evening. cariprazine 2023-0 Yes 1{capsu Take 1 U nivers (VRAYLAR) 3 5-04 le} capsule by it y of mg Cap 11:09: mouth in [place] [address] the Medical morning Branch and 1 capsule in the evening. dexamethaso 2023-0 Yes [id number] 12mg Take 120 [facility] ne 0.1 5-01 mL by ity of mg/mL LOW 00:00: mouth in [facility] 00 the Medical ON solution morning. Bran ch ipratropium 2023-0 Yes [id number] .5mg Inhale 2.5 [facility] 0.02 % 5-01 mL every 6 ity of nebulizer 00:00: (six) [place] solution 00 hours as Medical needed for Branch Wheezing or Shortness of Breath. dexamethaso 2023-0 Yes [id number] 12mg Take 120 [facility] ne 0.1 5-01 mL by ity of mg/mL LOW 00:00: mouth in [facility] 00 the Medical ON solution morning. Bran ch ipratropium 2023-0 Yes [id number] .5mg Inhale 2.5 [facility] 0.02 % 5-01 mL every 6 ity of nebulizer 00:00: (six) [place] solution 00 hours as Medical needed for Branch Wheezing or Shortness of Breath. dexamethaso 2023-0 Yes [id number] 12mg Take 120 [facility] ne 0.1 5-01 mL by ity of mg/mL LOW 00:00: mouth in [facility] 00 the Medical ON solution morning. Bran ch ipratropium 2023-0 Yes [id number] .5mg Inhale 2.5 [facility] 0.02 % 5-01 mL every 6 ity of nebulizer 00:00: (six) [place] solution 00 hours as Medical needed for Branch Wheezing or Shortness of Breath. dexamethaso 2023-0 Yes [id number] 12mg Take 120 [facility] ne 0.1 5-01 mL by ity of mg/mL LOW 00:00: [place] [facility] 00 the Medical ON solution morning. Bran ch ipratropium 2023-0 Yes [id number] .5mg Inhale 2.5 [facility] 0.02 % 5-01 mL every 6 ity of nebulizer 00:00: (six) [place] solution 00 hours as Medical needed for Branch Wheezing or Shortness of Breath. dexamethaso 2023-0 Yes [id number] 12mg Take 120 [facility] ne 0.1 5-01 mL by ity of mg/mL LOW 00:00: mouth in [place] [facility] 00 the Medical ON solution morning. Bran ch ipratropium 2023-0 Yes [id number] .5mg Inhale 2.5 [facility] 0.02 % 5-01 mL every 6 ity of nebulizer 00:00: (six) [place] solution 00 hours as Medical needed for Branch Wheezing or Shortness of Breath. dexamethaso 2023-0 Yes [id number] 12mg Take 120 [facility] 0.1 5-01 mL by [facility] of mg/mL LOW 00:00: [place] [facility] 00 the Medical ON solution morning. Bran ch ipratropium 2023-0 Yes [id number] .5mg Inhale 2.5 [facility] 0.02 % 5-01 mL every 6 ity of nebulizer 00:00: (six) [place] solution 00 hours as Medical needed for Branch Wheezing or Shortness of Breath. dexamethaso 2023-0 Yes [id number] 12mg Take 120 [facility] ne 0.1 5-01 mL by [facility] of mg/mL LOW 00:00: [place] [facility] 00 the Medical ON solution morning. Bran ch ipratropium 2023-0 Yes [id number] .5mg Inhale 2.5 [facility] 0.02 % 5-01 mL every 6 ity of nebulizer 00:00: (six) [place] solution 00 hours as Medical needed for Branch Wheezing or Shortness of Breath. dexamethaso 2023-0 Yes [id number] 12mg Take 120 [facility] 0.1 5-01 mL by [facility] of mg/mL LOW 00:00: [place] [facility] 00 the Medical ON solution morning. Bran ch ipratropium 2023-0 Yes [id number] .5mg Inhale 2.5 [facility] 0.02 % 5-01 mL every 6 ity of nebulizer 00:00: (six) [place] solution 00 hours as Medical needed for Branch Wheezing or Shortness of Breath. dexamethaso 2023-0 Yes [id number] 12mg Take 120 [facility] ne 0.1 5-01 mL by [facility] of mg/mL LOW 00:00: [place] [facility] 00 the Medical ON solution morning. Bran ch ipratropium 2023-0 Yes [id number] .5mg Inhale 2.5 [facility] 0.02 % 5-01 mL every 6 ity of nebulizer 00:00: (six) [place] solution 00 hours as Medical needed for Branch Wheezing or Shortness of Breath. dexamethaso 2023-0 Yes [id number] 12mg Take 120 [facility] ne 0.1 5-01 mL by [facility] of mg/mL LOW 00:00: [place] [facility] 00 the Medical ON solution morning. Bran ch ipratropium 2023-0 Yes [id number] .5mg Inhale 2.5 [facility] 0.02 % 5-01 mL every 6 ity of nebulizer 00:00: (six) [place] solution 00 hours as Medical needed for Branch Wheezing or Shortness of Breath. dexamethaso 2023-0 Yes [id number] 12mg Take 120 [facility] ne 0.1 5-01 mL by [facility] of mg/mL LOW 00:00: [place] [facility] 00 the Medical ON solution morning. Bran ch ipratropium 2023-0 Yes [id number] .5mg Inhale 2.5 [facility] 0.02 % 5-01 mL every 6 ity of nebulizer 00:00: (six) [place] solution 00 hours as Medical needed for Branch Wheezing or Shortness of Breath. dexamethaso 2023-0 Yes [id number] 12mg Take 120 [facility] ne 0.1 5-01 mL by [facility] of mg/mL LOW 00:00: [place] [facility] 00 the Medical ON solution morning. [facility] ch ipratropium 2023-0 Yes [id number] .5mg Inhale 2.5 [facility] 0.02 % 5-01 mL every 6 ity of nebulizer 00:00: (six) [place] solution 00 hours as Medical needed for Branch Wheezing or Shortness of Breath. dexamethaso 2023-0 Yes [id number] 12mg Take 120 [facility] 0.1 5-01 mL by [facility] mg/mL LOW [facility] Medical ON solution morning. Bran ch ipratropium 2023-0 Yes [id number] .5mg Inhale 2.5 [facility] 0.02 % 5-01 mL every 6 ity of nebulizer 00:00: (six) [place] solution 00 hours as Medical needed for Branch Wheezing or Shortness of Breath. dexamethaso 2023-0 Yes [id number] 12mg Take 120 [facility] ne 0.1 5-01 mL by it[facility] of mg/mL LOW 00:00[facility] the Medical ON solution morning. Bran ch ipratropium 2023-0 Yes [id number] .5mg Inhale 2.5 [facility] 0.02 % 5-01 mL every 6 ity of nebulizer 00:00: (six) [place] solution 00 hours as Medical needed for Branch Wheezing or Shortness of Breath. dexamethaso 2023-0 Yes [id number] 12mg Take 120 [facility] ne 0.1 5-01 mL by it[facility] of mg/mL LOW 00:00[facility] the Medical ON solution morning. Bran ch ipratropium 2023-0 Yes [id number] .5mg Inhale 2.5 [facility] 0.02 % 5-01 mL every 6 ity of nebulizer 00:00: (six) [place] solution 00 hours as Medical needed for Branch Wheezing or Shortness of Breath. dexamethaso 2023-0 Yes [id number] 12mg Take 120 [facility] ne 0.1 5-01 mL by ity of mg/mL LOW 00:00: [place] [facility] 00 the Medical ON solution morning. Bran ch ipratropium 2023-0 Yes [id number] .5mg Inhale 2.5 [facility] 0.02 % 5-01 mL every 6 ity of nebulizer 00:00: (six) [place] solution 00 hours as Medical needed for Branch Wheezing or Shortness of Breath. dexamethaso 2023-0 Yes [id number] 12mg Take 120 [facility] ne 0.1 5-01 mL by it[facility] of mg/mL LOW 00:00: [place] [facility] 00 the Medical ON solution morning. Bran ch ipratropium 2023-0 Yes [id number] .5mg Inhale 2.5 [facility] 0.02 % 5-01 mL every 6 ity of nebulizer 00:00: (six) [place] solution 00 hours as Medical needed for Branch Wheezing or Shortness of Breath. dexamethaso 2023-0 Yes [id number] 12mg Take 120 [facility] ne 0.1 5-01 mL by it[facility] of mg/mL LOW 00:00: [place] [facility] 00 the Medical ON solution morning. Bran ch ipratropium 2023-0 Yes [id number] .5mg Inhale 2.5 [facility] 0.02 % 5-01 mL every 6 ity of nebulizer 00:00: (six) [place] solution 00 hours as Medical needed for Branch Wheezing or Shortness of Breath. dexamethaso 2023-0 Yes [id number] 12mg Take 120 [facility] ne 0.1 5-01 mL by it[facility] of mg/mL LOW 00:00: [place] [facility] 00 the Medical ON solution morning. Bran ch ipratropium 2023-0 Yes [id number] .5mg Inhale 2.5 [facility] 0.02 % 5-01 mL every 6 ity of nebulizer 00:00: (six) [place] solution 00 hours as Medical needed for Branch Wheezing or Shortness of Breath. dexamethaso 2023-0 Yes [id number] 12mg Take 120 [facility] ne 0.1 5-01 mL by it[facility] of mg/mL LOW 00:00: [place] [facility] 00 the Medical ON solution morning. Bran ch ipratropium 2023-0 Yes [id number] .5mg Inhale 2.5 [facility] 0.02 % 5-01 mL every 6 ity of nebulizer 00:00: (six) [place] solution 00 hours as Medical needed for Branch Wheezing or Shortness of Breath. dexamethaso 2023-0 Yes [id number] 12mg Take 120 [facility] ne 0.1 5-01 mL by [facility]y of mg/mL LOW 00:00: [place] [facility] 00 the Medical ON solution morning. Bran ch ipratropium 2023-0 Yes [id number] .5mg Inhale 2.5 [facility] 0.02 % 5-01 mL every 6 ity of nebulizer 00:00: (six) [place] solution 00 hours as Medical needed for Branch Wheezing or Shortness of Breath. dexamethaso 2023-0 Yes [id number] 12mg Take 120 [facility] ne 0.1 5-01 mL by it[facility] of mg/mL LOW 00:00: [place] [facility] 00 the Medical ON solution morning. Bran ch ipratropium 2023-0 Yes [id number] .5mg Inhale 2.5 [facility] 0.02 % 5-01 mL every 6 ity of nebulizer 00:00: (six) [place] solution 00 hours as Medical needed for Branch Wheezing or Shortness of Breath. dexamethaso 2023-0 Yes [id number] 12mg Take 120 [facility] ne 0.1 5-01 mL by ity of mg/mL LOW 00:00: [place] [facility] 00 the Medical ON solution morning. Bran ch ipratropium 2023-0 Yes [id number] .5mg Inhale 2.5 [facility] 0.02 % 5-01 mL every 6 ity of nebulizer 00:00: (six) [place] solution 00 hours as Medical needed for Branch Wheezing or Shortness of Breath. dexamethaso 2023-0 Yes [id number] 12mg Take 120 [facility] ne 0.1 5-01 mL by ity of mg/mL LOW 00:00: [place] [facility] 00 the Medical ON solution morning. Bran ch ipratropium 2023-0 Yes [id number] .5mg Inhale 2.5 [facility] 0.02 % 5-01 mL every 6 ity of nebulizer 00:00: (six) [place] solution 00 hours as Medical needed for Branch Wheezing or Shortness of Breath. dexamethaso 2023-0 Yes [id number] 12mg Take 120 [facility] ne 0.1 5-01 mL by it[facility] of mg/mL LOW 00:00: [place] [facility] 00 the Medical ON solution morning. Bran ch ipratropium 2023-0 Yes [id number] .5mg Inhale 2.5 [facility] 0.02 % 5-01 mL every 6 ity of nebulizer 00:00: (six) [place] solution 00 hours as Medical needed for Branch Wheezing or Shortness of Breath. dexamethaso 2023-0 Yes [id number] 12mg Take 120 [facility] ne 0.1 5-01 mL by it[facility] of mg/mL LOW 00:00: [place] [facility] 00 the Medical ON solution morning. Bran ch ipratropium 2023-0 Yes [id number] .5mg Inhale 2.5 [facility] 0.02 % 5-01 mL every 6 ity of nebulizer 00:00: (six) [place] solution 00 hours as Medical needed for Branch Wheezing or Shortness of Breath. dexamethaso 2023-0 Yes [id number] 12mg Take 120 [facility] ne 0.1 5-01 mL by ity of mg/mL LOW 00:00: [place] [facility] 00 the Medical ON solution morning. Bran ch ipratropium 2023-0 Yes [id number] .5mg Inhale 2.5 [facility] 0.02 % 5-01 mL every 6 ity of nebulizer 00:00: (six) [place] solution 00 hours as Medical needed for Branch Wheezing or Shortness of Breath. dexamethaso 2023-0 Yes [id number] 12mg Take 120 [facility] ne 0.1 5-01 mL by it[facility] of mg/mL LOW 00:00: [place] [facility] 00 the Medical ON solution morning. Bran ch ipratropium 2023-0 Yes [id number] .5mg Inhale 2.5 [facility] 0.02 % 5-01 mL every 6 ity of nebulizer 00:00: (six) [place] solution 00 hours as Medical needed for Branch Wheezing or Shortness of Breath. ipratropium 2023-0 Yes [id number] .5mg Inhale 2.5 [facility] 0.02 % 5-01 mL every 6 ity of nebulizer 00:00: (six) [place] solution 00 hours as Medical needed for Branch Wheezing or Shortness of Breath. ipratropium 2023-0 Yes [id number] .5mg Inhale 2.5 [facility] 0.02 % 5-01 mL every 6 ity of nebulizer 00:00: (six) [place] solution 00 hours as Medical needed for Branch Wheezing or Shortness of Breath. ipratropium 2023-0 Yes [id number] .5mg Inhale 2.5 [facility] 0.02 % 5-01 mL every 6 ity of nebulizer 00:00: (six) [place] solution 00 hours as Medical needed for Branch Wheezing or Shortness of Breath. ipratropium 2023-0 Yes [id number] .5mg Inhale 2.5 [facility] 0.02 % 5-01 mL every 6 ity of nebulizer 00:00: (six) [place] solution 00 hours as Medical needed for Branch Wheezing or Shortness of Breath. ipratropium 2023-0 Yes [id number] .5mg Inhale 2.5 [facility] 0.02 % 5-01 mL every 6 ity of nebulizer 00:00: (six) [place] solution 00 hours as Medical needed for Branch Wheezing or Shortness of Breath. ipratropium 2023-0 Yes [id number] .5mg Inhale 2.5 [facility] 0.02 % 5-01 mL every 6 ity of nebulizer 00:00: (six) [place] solution 00 hours as Medical needed for Branch Wheezing or Shortness of Breath. ipratropium 2023-0 Yes [id number] .5mg Inhale 2.5 [facility] 0.02 % 5-01 mL every 6 ity of nebulizer 00:00: (six) [place] solution 00 hours as Medical needed for Branch Wheezing or Shortness of Breath. ipratropium 2023-0 Yes [id number] .5mg Inhale 2.5 [facility] 0.02 % 5-01 mL every 6 ity of nebulizer 00:00: (six) [place] solution 00 hours as Medical needed for Branch Wheezing or Shortness of Breath. ipratropium 2023-0 Yes [id number] .5mg Inhale 2.5 [facility] 0.02 % 5-01 mL every 6 ity of nebulizer 00:00: (six) [place] solution 00 hours as Medical needed for Branch Wheezing or Shortness of Breath. ipratropium 2023-0 Yes [id number] .5mg Inhale 2.5 [facility] 0.02 % 5-01 mL every 6 ity of nebulizer 00:00: (six) [place] solution 00 hours as Medical needed for Branch Wheezing or Shortness of Breath. ipratropium 2023-0 Yes [id number] .5mg Inhale 2.5 [facility] 0.02 % 5-01 mL every 6 ity of nebulizer 00:00: (six) [place] solution 00 hours as Medical needed for Branch Wheezing or Shortness of Breath. ipratropium 2023-0 Yes [id number] .5mg Inhale 2.5 [facility] 0.02 % 5-01 mL every 6 ity of nebulizer 00:00: (six) [place] solution 00 hours as Medical needed for Branch Wheezing or Shortness of Breath. ipratropium 2023-0 Yes [id number] .5mg Inhale 2.5 [facility] 0.02 % 5-01 mL every 6 ity of nebulizer 00:00: (six) [place] solution 00 hours as Medical needed for Branch Wheezing or Shortness of Breath. ipratropium 2023-0 Yes [id number] .5mg Inhale 2.5 [facility] 0.02 % 5-01 mL every 6 ity of nebulizer 00:00: (six) [place] solution 00 hours as Medical needed for Branch Wheezing or Shortness of Breath. ipratropium 2023-0 Yes [id number] .5mg Inhale 2.5 [facility] 0.02 % 5-01 mL every 6 ity of nebulizer 00:00: (six) [place] solution 00 hours as Medical needed for Branch Wheezing or Shortness of Breath. ipratropium 2023-0 Yes [id number] .5mg Inhale 2.5 [facility] 0.02 % 5-01 mL every 6 ity of nebulizer 00:00: (six) [place] solution 00 hours as Medical needed for Branch Wheezing or Shortness of Breath. ipratropium 2023-0 Yes [id number] .5mg Inhale 2.5 [facility] 0.02 % 5-01 mL every 6 ity of nebulizer 00:00: (six) [place] solution 00 hours as Medical needed for Branch Wheezing or Shortness of Breath. ipratropium 2023-0 Yes [id number] .5mg Inhale 2.5 [facility] 0.02 % 5-01 mL every 6 ity of nebulizer 00:00: (six) [place] solution 00 hours as Medical needed for Branch Wheezing or Shortness of Breath. ipratropium 2023-0 Yes [id number] .5mg Inhale 2.5 [facility] 0.02 % 5-01 mL every 6 ity of nebulizer 00:00: (six) [place] solution 00 hours as Medical needed for Branch Wheezing or Shortness of Breath. ipratropium 2023-0 Yes [id number] .5mg Inhale 2.5 [facility] 0.02 % 5-01 mL every 6 ity of nebulizer 00:00: (six) [place] solution 00 hours as Medical needed for Branch Wheezing or Shortness of Breath. ipratropium 2023-0 Yes [id number] .5mg Inhale 2.5 [facility] 0.02 % 5-01 mL every 6 ity of nebulizer 00:00: (six) [place] solution 00 hours as Medical needed for Branch Wheezing or Shortness of Breath. ipratropium 2023-0 Yes [id number] .5mg Inhale 2.5 [facility] 0.02 % 5-01 mL every 6 ity of nebulizer 00:00: (six) [place] solution 00 hours as Medical needed for Branch Wheezing or Shortness of Breath. ipratropium 2023-0 Yes [id number] .5mg Inhale 2.5 [facility] 0.02 % 5-01 mL every 6 ity of nebulizer 00:00: (six) [place] solution 00 hours as Medical needed for Branch Wheezing or Shortness of Breath. ipratropium 2023-0 Yes [id number] .5mg Inhale 2.5 [facility] 0.02 % 5-01 mL every 6 ity of nebulizer 00:00: (six) [place] solution 00 hours as Medical needed for Branch Wheezing or Shortness of Breath. ipratropium 2023-0 Yes [id number] .5mg Inhale 2.5 [facility] 0.02 % 5-01 mL every 6 ity of nebulizer 00:00: (six) [place] solution 00 hours as Medical needed for Branch Wheezing or Shortness of Breath. ipratropium 2023-0 Yes [id number] .5mg Inhale 2.5 [facility] 0.02 % 5-01 mL every 6 ity of nebulizer 00:00: (six) [place] solution 00 hours as Medical needed for Branch Wheezing or Shortness of Breath. ipratropium 2023-0 Yes [id number] .5mg Inhale 2.5 [facility] 0.02 % 5-01 mL every 6 ity of nebulizer 00:00: (six) [place] solution 00 hours as Medical needed for Branch Wheezing or Shortness of Breath. ipratropium 2023-0 Yes [id number] .5mg Inhale 2.5 [facility] 0.02 % 5-01 mL every 6 ity of nebulizer 00:00: (six) [place] solution 00 hours as Medical needed for Branch Wheezing or Shortness of Breath. ipratropium 2023-0 Yes [id number] .5mg Inhale 2.5 [facility] 0.02 % 5-01 mL every 6 ity of nebulizer 00:00: (six) [place] solution 00 hours as Medical needed for Branch Wheezing or Shortness of Breath. ipratropium 2023-0 Yes [id number] .5mg Inhale 2.5 [facility] 0.02 % 5-01 mL every 6 ity of nebulizer 00:00: (six) [place] solution 00 hours as Medical needed for Branch Wheezing or Shortness of Breath. ipratropium 2023-0 Yes [id number] .5mg Inhale 2.5 [facility] 0.02 % 5-01 mL every 6 ity of nebulizer 00:00: (six) [place] solution 00 hours as Medical needed for Branch Wheezing or Shortness of Breath. ipratropium 2023-0 Yes [id number] .5mg Inhale 2.5 [facility] 0.02 % 5-01 mL every 6 ity of nebulizer 00:00: (six) [place] solution 00 hours as Medical needed for Branch Wheezing or Shortness of Breath. ipratropium 2023-0 Yes [id number] .5mg Inhale 2.5 [facility] 0.02 % 5-01 mL every 6 ity of nebulizer 00:00: (six) [place] solution 00 hours as Medical needed for Branch Wheezing or Shortness of Breath. ipratropium 2023-0 Yes [id number] .5mg Inhale 2.5 [facility] 0.02 % 5-01 mL every 6 ity of nebulizer 00:00: (six) [place] solution 00 hours as Medical needed for Branch Wheezing or Shortness of Breath. ipratropium 2023-0 Yes [id number] .5mg Inhale 2.5 [facility] 0.02 % 5-01 mL every 6 ity of nebulizer 00:00: (six) [place] solution 00 hours as Medical needed for Branch Wheezing or Shortness of Breath. ipratropium 2023-0 Yes [id number] .5mg Inhale 2.5 [facility] 0.02 % 5-01 mL every 6 ity of nebulizer 00:00: (six) [place] solution 00 hours as Medical needed for Branch Wheezing or Shortness of Breath. ipratropium 2023-0 Yes [id number] .5mg Inhale 2.5 [facility] 0.02 % 5-01 mL every 6 ity of nebulizer 00:00: (six) [place] solution 00 hours as Medical needed for Branch Wheezing or Shortness of Breath. ipratropium 2023-0 Yes [id number] .5mg Inhale 2.5 [facility] 0.02 % 5-01 mL every 6 ity of nebulizer 00:00: (six) [place] solution 00 hours as Medical needed for Branch Wheezing or Shortness of Breath. ipratropium 2023-0 Yes [id number] .5mg Inhale 2.5 [facility] 0.02 % 5-01 mL every 6 ity of nebulizer 00:00: (six) [place] solution 00 hours as Medical needed for Branch Wheezing or Shortness of Breath. ipratropium 2023-0 Yes [id number] .5mg Inhale 2.5 [facility] 0.02 % 5-01 mL every 6 ity of nebulizer 00:00: (six) [place] solution 00 hours as Medical needed for Branch Wheezing or Shortness of Breath. ipratropium 2023-0 Yes [id number] .5mg Inhale 2.5 [facility] 0.02 % 5-01 mL every 6 ity of nebulizer 00:00: (six) [place] solution 00 hours as Medical needed for Branch Wheezing or Shortness of Breath. ipratropium 2023-0 Yes [id number] .5mg Inhale 2.5 [facility] 0.02 % 5-01 mL every 6 ity of nebulizer 00:00: (six) [place] solution 00 hours as Medical needed for Branch Wheezing or Shortness of Breath. ipratropium 2023-0 Yes [id number] .5mg Inhale 2.5 [facility] 0.02 % 5-01 mL every 6 ity of nebulizer 00:00: (six) [place] solution 00 hours as Medical needed for Branch Wheezing or Shortness of Breath. ipratropium 2023-0 Yes [id number] .5mg Inhale 2.5 [facility] 0.02 % 5-01 mL every 6 ity of nebulizer 00:00: (six) [place] solution 00 hours as Medical needed for Branch Wheezing or Shortness of Breath. ipratropium 2023-0 Yes [id number] .5mg Inhale 2.5 [facility] 0.02 % 5-01 mL every 6 ity of nebulizer 00:00: (six) [place] solution 00 hours as Medical needed for Branch Wheezing or Shortness of Breath. ipratropium 2023-0 Yes [id number] .5mg Inhale 2.5 [facility] 0.02 % 5-01 mL every 6 ity of nebulizer 00:00: (six) [place] solution 00 hours as Medical needed for Branch Wheezing or Shortness of Breath. ipratropium 2023-0 Yes [id number] .5mg Inhale 2.5 [facility] 0.02 % 5-01 mL every 6 ity of nebulizer 00:00: (six) [place] solution 00 hours as Medical needed for Branch Wheezing or Shortness of Breath. ipratropium 2023-0 Yes [id number] .5mg Inhale 2.5 [facility] 0.02 % 5-01 mL every 6 ity of nebulizer 00:00: (six) [place] solution 00 hours as Medical needed for Branch Wheezing or Shortness of Breath. ipratropium 2023-0 Yes [id number] .5mg Inhale 2.5 [facility] 0.02 % 5-01 mL every 6 ity of nebulizer 00:00: (six) [place] solution 00 hours as Medical needed for Branch Wheezing or Shortness of Breath. ipratropium 2023-0 Yes [id number] .5mg Inhale 2.5 [facility] 0.02 % 5-01 mL every 6 ity of nebulizer 00:00: (six) [place] solution 00 hours as Medical needed for Branch Wheezing or Shortness of Breath. ipratropium 2023-0 Yes [id number] .5mg Inhale 2.5 [facility] 0.02 % 5-01 mL every 6 ity of nebulizer 00:00: (six) [place] solution 00 hours as Medical needed for Branch Wheezing or Shortness of Breath. ipratropium 2023-0 Yes [id number] .5mg Inhale 2.5 [facility] 0.02 % 5-01 mL every 6 ity of nebulizer 00:00: (six) [place] solution 00 hours as Medical needed for Branch Wheezing or Shortness of Breath. ipratropium 2023-0 Yes [id number] .5mg Inhale 2.5 [facility] 0.02 % 5-01 mL every 6 ity of nebulizer 00:00: (six) [place] solution 00 hours as Medical needed for Branch Wheezing or Shortness of Breath. ipratropium 2023-0 Yes [id number] .5mg Inhale 2.5 [facility] 0.02 % 5-01 mL every 6 ity of nebulizer 00:00: (six) [place] solution 00 hours as Medical needed for Branch Wheezing or Shortness of Breath. ipratropium 2023-0 Yes [id number] .5mg Inhale 2.5 [facility] 0.02 % 5-01 mL every 6 ity of nebulizer 00:00: (six) [place] solution 00 hours as Medical needed for Branch Wheezing or Shortness of Breath. ipratropium 2023-0 Yes [id number] .5mg Inhale 2.5 [facility] 0.02 % 5-01 mL every 6 ity of nebulizer 00:00: (six) [place] solution 00 hours as Medical needed for Branch Wheezing or Shortness of Breath. ipratropium 2023-0 Yes [id number] .5mg Inhale 2.5 [facility] 0.02 % 5-01 mL every 6 ity of nebulizer 00:00: (six) [place] solution 00 hours as Medical needed for Branch Wheezing or Shortness of Breath. ipratropium 2023-0 Yes [id number] .5mg Inhale 2.5 [facility] 0.02 % 5-01 mL every 6 ity of nebulizer 00:00: (six) [place] solution 00 hours as Medical needed for Branch Wheezing or Shortness of Breath. ipratropium 2023-0 Yes [id number] .5mg Inhale 2.5 [facility] 0.02 % 5-01 mL every 6 ity of nebulizer 00:00: (six) [place] solution 00 hours as Medical needed for Branch Wheezing or Shortness of Breath. ipratropium 2023-0 Yes [id number] .5mg Inhale 2.5 [facility] 0.02 % 5-01 mL every 6 ity of nebulizer 00:00: (six) [place] solution 00 hours as Medical needed for Branch Wheezing or Shortness of Breath. ipratropium 2023-0 Yes [id number] .5mg Inhale 2.5 [facility] 0.02 % 5-01 mL every 6 ity of nebulizer 00:00: (six) [place] solution 00 hours as Medical needed for Branch Wheezing or Shortness of Breath. ipratropium 2023-0 Yes [id number] .5mg Inhale 2.5 [facility] 0.02 % 5-01 mL every 6 ity of nebulizer 00:00: (six) [place] solution 00 hours as Medical needed for Branch Wheezing or Shortness of Breath. ipratropium 2023-0 Yes [id number] .5mg Inhale 2.5 [facility] 0.02 % 5-01 mL every 6 ity of nebulizer 00:00: (six) [place] solution 00 hours as Medical needed for Branch Wheezing or Shortness of Breath. ipratropium 2023-0 Yes [id number] .5mg Inhale 2.5 [facility] 0.02 % 5-01 mL every 6 ity of nebulizer 00:00: (six) [place] solution 00 hours as Medical needed for Branch Wheezing or Shortness of Breath. ipratropium 2023-0 Yes [id number] .5mg Inhale 2.5 [facility] 0.02 % 5-01 mL every 6 ity of nebulizer 00:00: (six) [place] solution 00 hours as Medical needed for Branch Wheezing or Shortness of Breath. ipratropium 2023-0 Yes [id number] .5mg Inhale 2.5 [facility] 0.02 % 5-01 mL every 6 ity of nebulizer 00:00: (six) [place] solution 00 hours as Medical needed for Branch Wheezing or Shortness of Breath. ipratropium 2023-0 Yes [id number] .5mg Inhale 2.5 [facility] 0.02 % 5-01 mL every 6 ity of nebulizer 00:00: (six) [place] solution 00 hours as Medical needed for Branch Wheezing or Shortness of Breath. ipratropium 2023-0 Yes [id number] .5mg Inhale 2.5 [facility] 0.02 % 5-01 mL every 6 ity of nebulizer 00:00: (six) [place] solution 00 hours as Medical needed for Branch Wheezing or Shortness of Breath. ipratropium 2023-0 Yes [id number] .5mg Inhale 2.5 [facility] 0.02 % 5-01 mL every 6 ity of nebulizer 00:00: (six) [place] solution 00 hours as Medical needed for Branch Wheezing or Shortness of Breath. ipratropium 2023-0 Yes [id number] .5mg Inhale 2.5 [facility] 0.02 % 5-01 mL every 6 ity of nebulizer 00:00: (six) [place] solution 00 hours as Medical needed for Branch Wheezing or Shortness of Breath. ipratropium 2023-0 Yes [id number] .5mg Inhale 2.5 [facility] 0.02 % 5-01 mL every 6 ity of nebulizer 00:00: (six) [place] solution 00 hours as Medical needed for Branch Wheezing or Shortness of Breath. ipratropium 2023-0 Yes [id number] .5mg Inhale 2.5 [facility] 0.02 % 5-01 mL every 6 ity of nebulizer 00:00: (six) [place] solution 00 hours as Medical needed for Branch Wheezing or Shortness of Breath. ipratropium 2023-0 Yes [id number] .5mg Inhale 2.5 [facility] 0.02 % 5-01 mL every 6 ity of nebulizer 00:00: (six) [place] solution 00 hours as Medical needed for Branch Wheezing or Shortness of Breath. ipratropium 2023-0 Yes [id number] .5mg Inhale 2.5 [facility] 0.02 % 5-01 mL every 6 ity of nebulizer 00:00: (six) [place] solution 00 hours as Medical needed for Branch Wheezing or Shortness of Breath. dexamethaso 2023-0 2023- No [id number] 12mg Take 120 [facility] ne 0.1 5-01 06-05 mL by ity of mg/mL LOW 00:00: 00:00 mouth in [place] as [facility] 00 :00 the Medical ON solution morning. [facility] dexamethaso 2023-0 2023- No [id number] 12mg Take 120 [facility] ne 0.1 5-01 06-05 mL by ity of mg/mL LOW 00:00: 00:00 mouth in [place] as [facility] 00 :00 the Medical ON solution morning. [facility] ch dexamethaso 2023-0 2023- No [id number] 12mg Take 120 [facility] ne 0.1 5-01 [...] of Therapy: Other (see Comments) benzonatate Yes [id number] 100mg Take 1 [facility] 100 mg 11-12 capsule by ity of capsule 00:00: mouth 3 00 (three) Medical times Branch daily as needed for Cough. azithromyci 2022- No [id number] 250mg Take 6.25 [facility] n 4 05-02 mL by ity of (ZITHROMAX) 00:00: 04:59 mouth in [place] 200 mg/5 mL 00 :00 the Medical suspension morning Branch for 4 days. azithromyci 2022- No [id number] 250mg Take 6.25 [facility] n 4 05-02 mL by ity of (ZITHROMAX) 00:00: 04:59 mouth in [place] 200 mg/5 mL 00 :00 the Medical suspension morning Branch for 4 days. azithromyci 2023-0 2023- No [id number] 250mg Take 6.25 [facility] n 4-27 05-02 mL by ity of (ZITHROMAX) 00:00: 04:59 mouth in [place] 200 mg/5 mL 00 :00 the [facility] morning Branch for 4 days. benzonatate 2023-0 3- No [id number] 100mg Take 1 [facility] 100 mg 4-27 05-01 capsule by ity of capsule 00:00: 00:00 mouth 3 [place] 00 :00 (three) Medical times [place] daily as needed for Cough. benzonatate 2023-0 3- No [id number] 100mg Take 1 [facility] 100 mg 4-27 05-01 capsule by ity of capsule 00:00: 00:00 mouth 3 [place] 00 :00 ([facility]) [facility] times [place] daily as needed for Cough. omeprazole 2023-0 Yes 20mg Take 1 Un[facility] rs 20 mg 4-24 capsule by ity of capsule 00:00: mouth in [place] [address] the Medical morning [place] and 1 capsule in the evening. omeprazole 2023-0 Yes 20mg Take 1 [facility] rs 20 mg 4-24 capsule by ity of capsule 00:00: mouth in [address] Medical morning [place] and 1 capsule in the evening. omeprazole 2023-0 Yes 20mg Take 1 [facility] rs 20 mg 4-24 capsule by ity of capsule 00:00: mouth in [place] [address] the Medical morning [place] and 1 capsule in the evening. omeprazole 2023-0 Yes 20mg Take 1 [facility] rs 20 mg 4-24 capsule by ity of capsule 00:00: mouth in [place] [address] the Medical morning Branch and 1 capsule in the evening. omeprazole 2023-0 Yes 20mg Take 1 [facility] rs 20 mg 4-24 capsule by ity of capsule 00:00: mouth in [address] Medical morning [place] and 1 capsule in the evening. omeprazole 2023-0 Yes 20mg Take 1 [facility] rs 20 mg 4-24 capsule by ity of capsule 00:00: mouth in [address] Medical morning [place] and 1 capsule in the evening. omeprazole 2023-0 Yes 20mg Take 1 [facility] 20 mg 4-24 capsule by ity of capsule 00:00: mouth in [address] Medical morning [place] and 1 capsule in the evening. omeprazole 2023-0 Yes 20mg Take 1 [facility] rs 20 mg 4-24 capsule by ity of capsule 00:00: mouth in [place] [address] the Medical morning Branch and 1 capsule in the evening. omeprazole 2023-0 Yes 20mg Take 1 [facility] 20 mg 4-24 capsule by ity of capsule 00:00: mouth in [place] [address] the Medical morning Branch and 1 capsule in the evening. omeprazole 2023-0 Yes 20mg Take 1 [facility] rs 20 mg 4-24 capsule by ity of capsule 00:00: mouth in [place] [address] the Medical morning Branch and 1 capsule in the evening. omeprazole 2023-0 Yes 20mg Take 1 [facility] 20 mg 4-24 capsule by ity of capsule 00:00: mouth in [place] [address] the Medical morning Branch and 1 capsule in the evening. omeprazole 2023-0 Yes 20mg Take 1 [facility] 20 mg 4-24 capsule by ity of capsule 00:00: mouth in [place] [address] the Medical morning Branch and 1 capsule in the evening. omeprazole 2023-0 Yes 20mg Take 1 [facility] 20 mg 4-24 capsule by ity of capsule 00:00: mouth in [place] [address] the Medical morning Branch and 1 capsule in the evening. omeprazole 2023-0 Yes 20mg Take 1 [facility] 20 mg 4-24 capsule by it[facility] of capsule 00:00: mouth in [place] [address] the Medical morning Branch and 1 capsule in the evening. omeprazole 2023-0 Yes 20mg Take 1 [facility] 20 mg 4-24 capsule by ity of capsule 00:00: mouth in [place] [address] the Medical morning Branch and 1 capsule in the evening. omeprazole 2023-0 Yes 20mg Take 1 [facility] 20 mg 4-24 capsule by ity of capsule 00:00: mouth in [place] [address] the Medical morning Branch and 1 capsule in the evening. omeprazole 2023-0 Yes 20mg Take 1 [facility] 20 mg 4-24 capsule by ity of capsule 00:00: mouth in [place] [address] the Medical morning Branch and 1 capsule in the evening. omeprazole 2023-0 Yes 20mg Take 1 [facility] 20 mg 4-24 capsule by ity of capsule 00:00: mouth in [place] [address] the Medical morning Branch and 1 capsule in the evening. omeprazole 2023-0 Yes 20mg Take 1 [facility] 20 mg 4-24 capsule by ity of capsule 00:00: mouth in [place] [address] the Medical morning Branch and 1 capsule in the evening. omeprazole 2023-0 Yes 20mg Take 1 [facility] 20 mg 4-24 capsule by ity of capsule 00:00: mouth in [place] [address] the Medical morning Branch and 1 capsule in the evening. omeprazole 2023-0 Yes 20mg Take 1 [facility] rs 20 mg 4-24 capsule by ity of capsule 00:00: mouth in [place] [address] the Medical morning [place] and 1 capsule in the evening. omeprazole 2023-0 Yes 20mg Take 1 [facility] 20 mg 4-24 capsule by ity of capsule 00:00: mouth in [address] Medical morning Branch and 1 capsule in the evening. omeprazole 2023-0 Yes 20mg Take 1 [facility] rs 20 mg 4-24 capsule by ity of capsule 00:00: mouth in [address] Medical morning [place] and 1 capsule in the evening. omeprazole 2023-0 Yes 20mg Take 1 [facility] rs 20 mg 4-24 capsule by ity of capsule 00:00: mouth in [address] Medical morning [place] and 1 capsule in the evening. omeprazole 2023-0 Yes 20mg Take 1 [facility] rs 20 mg 4-24 capsule by ity of capsule 00:00: mouth in [address] morning [place] and 1 capsule in the evening. omeprazole 2023-0 Yes 20mg Take 1 [facility] rs 20 mg 4-24 capsule by ity of capsule 00:00: mouth in [address] morning [place] and 1 capsule in the evening. omeprazole 2023-0 Yes 20mg Take 1 [facility] rs 20 mg 4-24 capsule by ity of capsule 00:00: mouth in [address] Medical morning [place] and 1 capsule in the evening. omeprazole 2023-0 Yes 20mg Take 1 [facility] rs 20 mg 4-24 capsule by ity of capsule 00:00: mouth in [address] Medical morning [place] and 1 capsule in the evening. omeprazole 2023-0 Yes 20mg Take 1 [facility] rs 20 mg 4-24 capsule by ity of capsule 00:00: mouth in [address] morning [place] and 1 capsule in the evening. omeprazole 2023-0 Yes 20mg Take 1 [facility] rs 20 mg 4-24 capsule by ity of capsule 00:00: mouth in [address] Medical morning [place] and 1 capsule in the evening. omeprazole 2023-0 Yes 20mg Take 1 [facility] rs 20 mg 4-24 capsule by ity of capsule 00:00: mouth in [place] [address] the Medical morning Branch and 1 capsule in the evening. omeprazole 2023-0 Yes 20mg Take 1 [facility] rs 20 mg 4-24 capsule by ity of capsule 00:00: mouth in [place] [address] the Medical morning Branch and 1 capsule in the evening. omeprazole 2023-0 Yes 20mg Take 1 [facility] rs 20 mg 4-24 capsule by ity of capsule 00:00: mouth in [place] [address] the Medical morning Branch and 1 capsule in the evening. omeprazole 2023-0 Yes 20mg Take 1 [facility] rs 20 mg 4-24 capsule by ity of capsule 00:00: mouth in [place] [address] the Medical morning Branch and 1 capsule in the evening. omeprazole 2023-0 Yes 20mg Take 1 [facility] rs 20 mg 4-24 capsule by ity of capsule 00:00: mouth in [place] [address] the Medical morning Branch and 1 capsule in the evening. omeprazole 2023-0 Yes 20mg Take 1 [facility] 20 mg 4-24 capsule by ity of capsule 00:00: mouth in [place] [address] the Medical morning Branch and 1 capsule in the evening. omeprazole 2023-0 Yes 20mg Take 1 [facility] 20 mg 4-24 capsule by ity of capsule 00:00: mouth in [place] [address] the Medical morning Branch and 1 capsule in the evening. omeprazole 2023-0 Yes 20mg Take 1 [facility] 20 mg 4-24 capsule by ity of capsule 00:00: mouth in [place] [address] the Medical morning Branch and 1 capsule in the evening. omeprazole 2023-0 Yes 20mg Take 1 [facility] rs 20 mg 4-24 capsule by ity of capsule 00:00: mouth in [place] [address] the Medical morning Branch and 1 capsule in the evening. omeprazole 2023-0 Yes 20mg Take 1 [facility] rs 20 mg 4-24 capsule by ity of capsule 00:00: mouth in [place] [address] the Medical morning Branch and 1 capsule in the evening. omeprazole 2023-0 Yes 20mg Take 1 [facility] 20 mg 4-24 capsule by ity of capsule 00:00: mouth in [place] [address] the Medical morning Branch and 1 capsule in the evening. omeprazole 2023-0 Yes 20mg Take 1 [facility] 20 mg 4-24 capsule by ity of capsule 00:00: mouth in [place] [address] the Medical morning Branch and 1 capsule in the evening. omeprazole 2023-0 Yes 20mg Take 1 [facility] 20 mg 4-24 capsule by ity of capsule 00:00: mouth in [place] [address] the Medical morning Branch and 1 capsule in the evening. omeprazole 2023-0 Yes 20mg Take 1 [facility] rs 20 mg 4-24 capsule by ity of capsule 00:00: mouth in [place] [address] the Medical morning Branch and 1 capsule in the evening. omeprazole 2023-0 Yes 20mg Take 1 [facility] rs 20 mg 4-24 capsule by ity of capsule 00:00: mouth in [place] [address] the Medical morning Branch and 1 capsule in the evening. omeprazole 2023-0 Yes 20mg Take 1 [facility] rs 20 mg 4-24 capsule by ity of capsule 00:00: mouth in [place] [address] the Medical morning Branch and 1 capsule in the evening. omeprazole 2023-0 Yes 20mg Take 1 [facility] rs 20 mg 4-24 capsule by ity of capsule 00:00: mouth in [place] [address] the Medical morning [place] and 1 capsule in the evening. omeprazole 2023-0 Yes 20mg Take 1 [facility] rs 20 mg 4-24 capsule by ity of capsule 00:00: mouth in [place] [address] the Medical morning [place] and 1 capsule in the evening. omeprazole 2023-0 Yes 20mg Take 1 [facility] rs 20 mg 4-24 capsule by ity of capsule 00:00: mouth in [place] [address] the Medical morning [place] and 1 capsule in the evening. omeprazole 2023-0 Yes 20mg Take 1 [facility] rs 20 mg 4-24 capsule by ity of capsule 00:00: mouth in [place] [address] the Medical morning Branch and 1 capsule in the evening. omeprazole 2023-0 Yes 20mg Take 1 [facility] rs 20 mg 4-24 capsule by ity of capsule 00:00: mouth in [place] [address] the Medical morning Branch and 1 capsule in the evening. omeprazole 2023-0 Yes 20mg Take 1 [facility] rs 20 mg 4-24 capsule by ity of capsule 00:00: mouth in [place] [address] the Medical morning [place] and 1 capsule in the evening. diazePAM 2 2023-0 Yes 2mg Take 1 Un[facility] rs mg tablet 4-21 tablet by ity o f 00:00: mouth in [place] 00 the Medical morning Branch and 1 tablet in the evening. diazePAM 2 3-0 Yes 2mg Take 1 [facility] rs mg tablet 4-21 tablet by ity o f 00:00: mouth in [place] 00 the Medical morning Branch and 1 tablet in the evening. diazePAM 2 2023-0 Yes 2mg Take 1 [facility] rs mg tablet 4-21 tablet by ity o f 00:00: mouth in [place] 00 the Medical morning Branch and 1 tablet in the evening. diazePAM 2 3-0 Yes 2mg Take 1 [facility] rs mg tablet 4-21 tablet by ity o f 00:00: mouth in [place] 00 the Medical morning Branch and 1 tablet in the evening. diazePAM 2 3-0 Yes 2mg Take 1 [facility] rs mg tablet 4-21 tablet by ity o f 00:00: mouth in [place] 00 the Medical morning Branch and 1 tablet in the evening. diazePAM 2 3-0 Yes 2mg Take 1 [facility] rs mg tablet 4-21 tablet by ity o f 00:00: mouth in [place] 00 the Medical morning Branch and 1 tablet in the evening. diazePAM 2 3-0 Yes 2mg Take 1 [facility] rs mg tablet 4-21 tablet by ity o f 00:00: mouth in [place] 00 the Medical morning Branch and 1 tablet in the evening. diazePAM 2 3-0 Yes 2mg Take 1 [facility] rs mg tablet 4-21 tablet by ity o f 00:00: mouth in [place] 00 the Medical morning Branch and 1 tablet in the evening. diazePAM 2 3-0 Yes 2mg Take 1 [facility] rs mg tablet 4-21 tablet by ity o f 00:00: mouth in [place] 00 the Medical morning Branch and 1 tablet in the evening. diazePAM 2 3-0 Yes 2mg Take 1 [facility] rs mg tablet 4-21 tablet by ity o f 00:00: mouth in [place] 00 the Medical morning Branch and 1 tablet in the evening. diazePAM 2 3-0 Yes 2mg Take 1 [facility] rs mg tablet 4-21 tablet by ity o f 00:00: mouth in [place] 00 the Medical morning Branch and 1 tablet in the evening. diazePAM 2 3-0 Yes 2mg Take 1 [facility]ive rs mg tablet 4-21 tablet by ity o f 00:00: mouth in [place] 00 the Medical morning Branch and 1 tablet in the evening. diazePAM 2 3-0 Yes 2mg Take 1 Un[facility] rs mg tablet 4-21 tablet by ity o f 00:00: mouth in [place] 00 the Medical morning Branch and 1 tablet in the evening. diazePAM 2 3-0 Yes 2mg Take 1 Un[facility] rs mg tablet 4-21 tablet by ity o f 00:00: mouth in [place] 00 the Medical morning Branch and 1 tablet in the evening. diazePAM 2 3-0 Yes 2mg Take 1 Unive rs mg tablet 4-21 tablet by ity o f 00:00: mouth in [place] 00 the Medical morning Branch and 1 tablet in the evening. diazePAM 2 3-0 Yes 2mg Take 1 Unive rs mg tablet 4-21 tablet by ity o f 00:00: mouth in [place] 00 the Medical morning Branch and 1 tablet in the evening. diazePAM 2 3-0 Yes 2mg Take 1 Unive rs mg tablet 4-21 tablet by ity o f 00:00: mouth in [place] 00 the Medical morning Branch and 1 tablet in the evening. diazePAM 2 3-0 Yes 2mg Take 1 Unive rs mg tablet 4-21 tablet by ity o f 00:00: mouth in [place] 00 the Medical morning Branch and 1 tablet in the evening. diazePAM 2 3-0 Yes 2mg Take 1 Unive rs mg tablet 4-21 tablet by ity o f 00:00: mouth in [place] 00 the Medical morning Branch and 1 tablet in the evening. diazePAM 2 3-0 Yes 2mg Take 1 Unive rs mg tablet 4-21 tablet by ity o f 00:00: mouth in [place] 00 the Medical morning Branch and 1 tablet in the evening. diazePAM 2 3-0 Yes 2mg Take 1 Unive rs mg tablet 4-21 tablet by ity o f 00:00: mouth in [place] 00 the Medical morning Branch and 1 tablet in the evening. diazePAM 2 3-0 Yes 2mg Take 1 Unive rs mg tablet 4-21 tablet by ity o f 00:00: mouth in [place] 00 the Medical morning Branch and 1 tablet in the evening. diazePAM 2 3-0 Yes 2mg Take 1 Unive rs mg tablet 4-21 tablet by ity o f 00:00: mouth in [place] 00 the Medical morning Branch and 1 tablet in the evening. diazePAM 2 3-0 Yes 2mg Take 1 Unive rs mg tablet 4-21 tablet by ity o f 00:00: mouth in [place] 00 the Medical morning Branch and 1 tablet in the evening. diazePAM 2 3-0 Yes 2mg Take 1 Unive rs mg tablet 4-21 tablet by ity o f 00:00: mouth in [place] 00 the Medical morning Branch and 1 tablet in the evening. diazePAM 2 3-0 Yes 2mg Take 1 Un[facility] rs mg tablet 4-21 tablet by ity o f 00:00: mouth in [place] 00 the Medical morning Branch and 1 tablet in the evening. diazePAM 2 3-0 Yes 2mg Take 1 Unive rs mg tablet 4-21 tablet by ity o f 00:00: mouth in [place] 00 the Medical morning Branch and 1 tablet in the evening. diazePAM 2 3-0 Yes 2mg Take 1 Unive rs mg tablet 4-21 tablet by ity o f 00:00: mouth in [place] 00 the Medical morning Branch and 1 tablet in the evening. diazePAM 2 3-0 Yes 2mg Take 1 Unive rs mg tablet 4-21 tablet by ity o f 00:00: mouth in [place] 00 the Medical morning Branch and 1 tablet in the evening. diazePAM 2 2022-0 Yes 2mg Take 1 Unive rs mg tablet 4-21 tablet by ity o f 00:00: mouth in [place] 00 the Medical morning Branch and 1 tablet in the evening. diazePAM 2 3-0 Yes 2mg Take 1 Unive rs mg tablet 4-21 tablet by ity o f 00:00: mouth in [place] 00 the Medical morning Branch and 1 tablet in the evening. diazePAM 2 3-0 Yes 2mg Take 1 [facility] rs mg tablet 4-21 tablet by ity o f 00:00: mouth in [place] 00 the Medical morning Branch and 1 tablet in the evening. diazePAM 2 3-0 Yes 2mg Take 1 [facility] rs mg tablet 4-21 tablet by ity o f 00:00: mouth in [place] 00 the Medical morning Branch and 1 tablet in the evening. diazePAM 2 3-0 Yes 2mg Take 1 [facility] rs mg tablet 4-21 tablet by ity o f 00:00: mouth in [place] 00 the Medical morning Branch and 1 tablet in the evening. diazePAM 2 3-0 Yes 2mg Take 1 [facility] rs mg tablet 4-21 tablet by ity o f 00:00: mouth in [place] 00 the Medical morning Branch and 1 tablet in the evening. diazePAM 2 3-0 Yes 2mg Take 1 [facility] rs mg tablet 4-21 tablet by ity o f 00:00: mouth in [place] 00 the Medical morning Branch and 1 tablet in the evening. diazePAM 2 3-0 Yes 2mg Take 1 [facility] rs mg tablet 4-21 tablet by ity o f 00:00: mouth in [place] 00 the Medical morning Branch and 1 tablet in the evening. diazePAM 2 3-0 Yes 2mg Take 1 [facility] rs mg tablet 4-21 tablet by ity o f 00:00: mouth in [place] 00 the Medical morning Branch and 1 tablet in the evening. diazePAM 2 3-0 Yes 2mg Take 1 [facility] rs mg tablet 4-21 tablet by ity o f 00:00: mouth in [place] 00 the Medical morning Branch and 1 tablet in the evening. diazePAM 2 2022-0 Yes 2mg Take 1 [facility] rs mg tablet 4-21 tablet by ity o f 00:00: mouth in [place] 00 the Medical morning Branch and 1 tablet in the evening. diazePAM 2 2022-0 Yes 2mg Take 1 [facility] rs mg tablet 4-21 tablet by ity o f 00:00: mouth in [place] 00 the Medical morning Branch and 1 tablet in the evening. diazePAM 2 3-0 Yes 2mg Take 1 Un[facility] rs mg tablet 4-21 tablet by ity o f 00:00: mouth in [place] 00 the Medical morning Branch and 1 tablet in the evening. diazePAM 2 3-0 Yes 2mg Take 1 Unive rs mg tablet 4-21 tablet by ity o f 00:00: mouth in [place] 00 the Medical morning Branch and 1 tablet in the evening. diazePAM 2 3-0 Yes 2mg Take 1 Un[facility] rs mg tablet 4-21 tablet by ity o f 00:00: mouth in [place] 00 the Medical morning Branch and 1 tablet in the evening. diazePAM 2 3-0 Yes 2mg Take 1 Un[facility] rs mg tablet 4-21 tablet by ity o f 00:00: mouth in [place] 00 the Medical morning Branch and 1 tablet in the evening. diazePAM 2 3-0 Yes 2mg Take 1 Unive rs mg tablet 4-21 tablet by ity o f 00:00: mouth in [place] 00 the Medical morning Branch and 1 tablet in the evening. diazePAM 2 3-0 Yes 2mg Take 1 Unive rs mg tablet 4-21 tablet by ity o f 00:00: mouth in [place] 00 the Medical morning Branch and 1 tablet in the evening. diazePAM 2 3-0 Yes 2mg Take 1 Unive rs mg tablet 4-21 tablet by ity o f 00:00: mouth in [place] 00 the Medical morning Branch and 1 tablet in the evening. diazePAM 2 3-0 Yes 2mg Take 1 [facility] rs mg tablet 4-21 tablet by ity o f 00:00: mouth in [place] 00 the Medical morning Branch and 1 tablet in the evening. diazePAM 2 2022-0 Yes 2mg Take 1 Unive rs mg tablet 4-21 tablet by ity o f 00:00: mouth in [place] 00 the Medical morning Branch and 1 tablet in the evening. diazePAM 2 2022-0 Yes 2mg Take 1 Unive rs mg tablet 4-21 tablet by ity o f 00:00: mouth in [place] 00 the Medical morning Branch and 1 tablet in the evening. diazePAM 2 2022-0 Yes 2mg Take 1 Unive rs mg tablet 4-21 tablet by ity o f 00:00: mouth in [place] 00 the Medical morning Branch and 1 tablet in the evening. diazePAM 2 3-0 Yes 2mg Take 1 Unive rs mg tablet 4-21 tablet by ity o f 00:00: mouth in [place] 00 the Medical morning Branch and 1 tablet in the evening. diazePAM 2 3-0 Yes 2mg Take 1 Unive rs mg tablet 4-21 tablet by ity o f 00:00: mouth in [place] 00 the Medical morning Branch and 1 tablet in the evening. diazePAM 2 3-0 Yes 2mg Take 1 Unive rs mg tablet 4-21 tablet by ity o f 00:00: mouth in [place] 00 the Medical morning Branch and 1 tablet in the evening. diazePAM 2 3-0 Yes 2mg Take 1 [facility] rs mg tablet 4-21 tablet by ity o f 00:00: mouth in [place] 00 the Medical morning Branch and 1 tablet in the evening. diazePAM 2 3-0 Yes 2mg Take 1 [facility] rs mg tablet 4-21 tablet by ity o f 00:00: mouth in [place] 00 the Medical morning Branch and 1 tablet in the evening. diazePAM 2 3-0 Yes 2mg Take 1 [facility] rs mg tablet 4-21 tablet by ity o f 00:00: mouth in [place] 00 the Medical morning Branch and 1 tablet in the evening. diazePAM 2 2022-0 Yes 2mg Take 1 [facility] rs mg tablet 4-21 tablet by ity o f 00:00: mouth in [place] 00 the Medical morning Branch and 1 tablet in the evening. diazePAM 2 3-0 Yes 2mg Take 1 [facility] rs mg tablet 4-21 tablet by ity o f 00:00: mouth in [place] 00 the Medical morning Branch and 1 tablet in the evening. diazePAM 2 2022-0 Yes 2mg Take 1 [facility] rs mg tablet 4-21 tablet by ity o f 00:00: mouth in [place] 00 the Medical morning Branch and 1 tablet in the evening. diazePAM 2 2022-0 Yes 2mg Take 1 [facility] rs mg tablet 4-21 tablet by ity o f 00:00: mouth in [place] 00 the Medical morning Branch and 1 tablet in the evening. diazePAM 2 2022-0 Yes 2mg Take 1 [facility] rs mg tablet 4-21 tablet by ity o f 00:00: mouth in [place] 00 the Medical morning Branch and 1 tablet in the evening. diazePAM 2 2022-0 Yes 2mg Take 1 [facility] rs mg tablet 4-21 tablet by ity o f 00:00: mouth in [place] 00 the Medical morning Branch and 1 tablet in the evening. diazePAM 2 2022-0 Yes 2mg Take 1 [facility] rs mg tablet 4-21 tablet by ity o f 00:00: mouth in [place] 00 the Medical morning Branch and 1 tablet in the evening. diazePAM 2 3-0 Yes 2mg Take 1 [facility] rs mg tablet 4-21 tablet by ity o f 00:00: mouth in [place] 00 the Medical morning Branch and 1 tablet in the evening. diazePAM 2 3-0 Yes 2mg Take 1 [facility] rs mg tablet 4-21 tablet by ity o f 00:00: mouth in [place] 00 the Medical morning Branch and 1 tablet in the evening. diazePAM 2 3-0 Yes 2mg Take 1 [facility] rs mg tablet 4-21 tablet by ity o f 00:00: mouth in [place] 00 the Medical morning Branch and 1 tablet in the evening. diazePAM 2 3-0 Yes 2mg Take 1 [facility] rs mg tablet 4-21 tablet by ity o f 00:00: mouth in [place] 00 the Medical morning Branch and 1 tablet in the evening. diazePAM 2 2022-0 Yes 2mg Take 1 [facility] rs mg tablet 4-21 tablet by ity o f 00:00: mouth in [place] 00 the Medical morning Branch and 1 tablet in the evening. diazePAM 2 3-0 Yes 2mg Take 1 [facility] rs mg tablet 4-21 tablet by ity o f 00:00: mouth in [place] 00 the Medical morning Branch and 1 tablet in the evening. diazePAM 2 3-0 Yes 2mg Take 1 [facility] rs mg tablet 4-21 tablet by ity o f 00:00: mouth in [place] 00 the Medical morning Branch and 1 tablet in the evening. diazePAM 2 2022-0 Yes 2mg Take 1 [facility] rs mg tablet 4-21 tablet by ity o f 00:00: mouth in [place] 00 the Medical morning Branch and 1 tablet in the evening. diazePAM 2 3-0 Yes 2mg Take 1 [facility] rs mg tablet 4-21 tablet by ity o f 00:00: mouth in [place] 00 the Medical morning Branch and 1 tablet in the evening. diazePAM 2 2022-0 Yes 2mg Take 1 [facility] rs mg tablet 4-21 tablet by ity o f 00:00: mouth in [place] 00 the Medical morning Branch and 1 tablet in the evening. diazePAM 2 2022-0 Yes 2mg Take 1 [facility] rs mg tablet 4-21 tablet by ity o f 00:00: mouth in [place] 00 the Medical morning Branch and 1 tablet in the evening. diazePAM 2 3-0 Yes 2mg Take 1 [facility] rs mg tablet 4-21 tablet by ity o f 00:00: mouth in [place] 00 the Medical morning Branch and 1 tablet in the evening. diazePAM 2 3-0 Yes 2mg Take 1 [facility] rs mg tablet 4-21 tablet by ity o f 00:00: mouth in [place] 00 the Medical morning Branch and 1 tablet in the evening. diazePAM 2 3-0 Yes 2mg Take 1 [facility] rs mg tablet 4-21 tablet by ity o f 00:00: mouth in [place] 00 the Medical morning Branch and 1 tablet in the evening. diazePAM 2 3-0 Yes 2mg Take 1 [facility] rs mg tablet 4-21 tablet by ity o f 00:00: mouth in [place] 00 the Medical morning Branch and 1 tablet in the evening. diazePAM 2 3-0 Yes 2mg Take 1 [facility] rs mg tablet 4-21 tablet by ity o f 00:00: mouth in [place] 00 the Medical morning Branch and 1 tablet in the evening. diazePAM 2 3-0 Yes 2mg Take 1 [facility] rs mg tablet 4-21 tablet by ity o f 00:00: mouth in [place] 00 the Medical morning Branch and 1 tablet in the evening. diazePAM 2 3-0 Yes 2mg Take 1 [facility] rs mg tablet 4-21 tablet by ity o f 00:00: mouth in [place] 00 the Medical morning Branch and 1 tablet in the evening. diazePAM 2 3-0 Yes 2mg Take 1 [facility] rs mg tablet 4-21 tablet by ity o f 00:00: mouth in [place] 00 the Medical morning Branch and 1 tablet in the evening. diazePAM 2 2022-0 Yes 2mg Take 1 [facility] rs mg tablet 4-21 tablet by ity o f 00:00: mouth in [place] 00 the Medical morning Branch and 1 tablet in the evening. diazePAM 2 3-0 Yes 2mg Take 1 [facility] rs mg tablet 4-21 tablet by ity o f 00:00: mouth in [place] 00 the Medical morning Branch and 1 tablet in the evening. diazePAM 2 2022-0 Yes 2mg Take 1 [facility] rs mg tablet 4-21 tablet by ity o f 00:00: mouth in [place] 00 the Medical morning Branch and 1 tablet in the evening. diazePAM 2 3-0 Yes 2mg Take 1 [facility] rs mg tablet 4-21 tablet by ity o f 00:00: mouth in [place] 00 the Medical morning Branch and 1 tablet in the evening. diazePAM 2 3-0 Yes 2mg Take 1 [facility] rs mg tablet 4-21 tablet by ity o f 00:00: mouth in [place] 00 the Medical morning Branch and 1 tablet in the evening. diazePAM 2 3-0 Yes 2mg Take 1 [facility] rs mg tablet 4-21 tablet by ity o f 00:00: mouth in [place] 00 the Medical morning Branch and 1 tablet in the evening. diazePAM 2 3-0 Yes 2mg Take 1 [facility] rs mg tablet 4-21 tablet by ity o f 00:00: mouth in [place] 00 the Medical morning Branch and 1 tablet in the evening. omeprazole 2022-0 Yes [id number] 40mg Take 1 [facility] 40 mg 4-19 capsule by [facility] of capsule 00:00: mouth in [address] Medical morning [place] and 1 capsule in the evening. omeprazole 2023-0 Yes [id number] 40mg Take 1 [facility] 40 mg 4-19 capsule by [facility] of capsule 00:00: mouth in [address] morning [place] and 1 capsule in the evening. omeprazole 2023-0 Yes [id number] 40mg Take 1 [facility] 40 mg 4-19 capsule by [facility] of capsule 00:00: mouth in [address] Medical morning [place] and 1 capsule in the evening. omeprazole 2023-0 Yes [id number] 40mg Take 1 [facility] 40 mg 4-19 capsule by ity of capsule 00:00: mouth in [address] morning [place]o and 1 capsule in the evening. omeprazole 2023-0 Yes [id number] 40mg Take 1 [facility] 40 mg 4-19 capsule by ity of capsule 00:00: mouth in [address] morning [place] and 1 capsule in the evening. omeprazole 2023-0 Yes [id number] 40mg Take 1 [facility] 40 mg 4-19 capsule by ity of capsule 00:00: mouth in [address] morning [place] and 1 capsule in the evening. omeprazole 2023-0 Yes [id number] 40mg Take 1 [facility] 40 mg 4-19 capsule by ity of capsule 00:00: mouth in [address] morning [place] and 1 capsule in the evening. omeprazole 2023-0 Yes [id number] 40mg Take 1 [facility] 40 mg 4-19 capsule by ity of capsule 00:00: mouth in [address] morning [place] and 1 capsule in the evening. omeprazole 2023-0 Yes [id number] 40mg Take 1 [facility] 40 mg 4-19 capsule by ity of capsule 00:00: mouth in [address] morning [place] and 1 capsule in the evening. omeprazole 2023-0 Yes [id number] 40mg Take 1 [facility] 40 mg 4-19 capsule by ity of capsule 00:00: mouth in [address] morning [place] and 1 capsule in the evening. omeprazole 2023-0 Yes [id number] 40mg Take 1 [facility] 40 mg 4-19 capsule by ity of capsule 00:00: mouth in [address] morning [place] and 1 capsule in the evening. omeprazole 2023-0 Yes [id number] 40mg Take 1 [facility] 40 mg 4-19 capsule by ity of capsule 00:00: mouth in [place] [address] the Medical morning Branch and 1 capsule in the evening. omeprazole 2023-0 Yes [id number] 40mg Take 1 [facility] 40 mg 4-19 capsule by ity of capsule 00:00: mouth in [place] [address] the Medical morning Branch and 1 capsule in the evening. omeprazole 2023-0 Yes [id number] 40mg Take 1 [facility] 40 mg 4-19 capsule by ity of capsule 00:00: mouth in [place] [address] the Medical morning Branch and 1 capsule in the evening. omeprazole 2023-0 Yes [id number] 40mg Take 1 [facility] 40 mg 4-19 capsule by ity of capsule 00:00: mouth in [address] Medical morning [place] and 1 capsule in the evening. omeprazole 2023-0 Yes [id number] 40mg Take 1 [facility] 40 mg 4-19 capsule by ity of capsule 00:00: mouth in [address] morning [place] and 1 capsule in the evening. omeprazole 2023-0 Yes [id number] 40mg Take 1 [facility] 40 mg 4-19 capsule by ity of capsule 00:00: mouth in [address] morning [place] and 1 capsule in the evening. omeprazole 2023-0 Yes [id number] 40mg Take 1 [facility] 40 mg 4-19 capsule by ity of capsule 00:00: mouth in [address] morning [place] and 1 capsule in the evening. omeprazole 2023-0 Yes [id number] 40mg Take 1 [facility] 40 mg 4-19 capsule by ity of capsule 00:00: mouth in [address] morning [place] and 1 capsule in the evening. omeprazole 2023-0 Yes [id number] 40mg Take 1 [facility] 40 mg 4-19 capsule by ity of capsule 00:00: mouth in [address] morning [place] and 1 capsule in the evening. omeprazole 2023-0 Yes [id number] 40mg Take 1 [facility] 40 mg 4-19 capsule by ity of capsule 00:00: mouth in [address] morning [place] and 1 capsule in the evening. omeprazole 2023-0 Yes [id number] 40mg Take 1 [facility] 40 mg 4-19 capsule by ity of capsule 00:00: mouth in [address] morning [place] and 1 capsule in the evening. omeprazole 2023-0 Yes [id number] 40mg Take 1 [facility] 40 mg 4-19 capsule by ity of capsule 00:00: mouth in [place] [address] the Medical morning Branch and 1 capsule in the evening. omeprazole 2023-0 Yes [id number] 40mg Take 1 [facility] 40 mg 4-19 capsule by ity of capsule 00:00: mouth in [place] [address] the Medical morning Branch and 1 capsule in the evening. omeprazole 2023-0 Yes [id number] 40mg Take 1 [facility] 40 mg 4-19 capsule by ity of capsule 00:00: mouth in [place] [address] the Medical morning Branch and 1 capsule in the evening. omeprazole 2023-0 Yes [id number] 40mg Take 1 [facility] 40 mg 4-19 capsule by ity of capsule 00:00: mouth in [place] [address] the Medical morning Branch and 1 capsule in the evening. omeprazole 2023-0 Yes [id number] 40mg Take 1 [facility] 40 mg 4-19 capsule by ity of capsule 00:00: mouth in [place] [address] the Medical morning Rodeo and 1 capsule in the evening. omeprazole 2023-0 Yes [id number] 40mg Take 1 [facility] 40 mg 4-19 capsule by ity of capsule 00:00: mouth in [address] Medical morning [place] and 1 capsule in the evening. omeprazole 2023-0 Yes [id number] 40mg Take 1 [facility] 40 mg 4-19 capsule by ity of capsule 00:00: mouth in [address] Medical morning [place] and 1 capsule in the evening. omeprazole 2023-0 Yes [id number] 40mg Take 1 [facility] 40 mg 4-19 capsule by ity of capsule 00:00: mouth in [address] Medical morning [place] and 1 capsule in the evening. omeprazole 2023-0 Yes [id number] 40mg Take 1 [facility] 40 mg 4-19 capsule by ity of capsule 00:00: mouth in [address] Medical morning [place] and 1 capsule in the evening. omeprazole 2023-0 Yes [id number] 40mg Take 1 [facility] 40 mg 4-19 capsule by ity of capsule 00:00: mouth in [address] morning [place] and 1 capsule in the evening. omeprazole 2023-0 Yes [id number] 40mg Take 1 [facility] 40 mg 4-19 capsule by ity of capsule 00:00: mouth in [address] Medical morning [place] and 1 capsule in the evening. omeprazole 2023-0 2023- No [id number] 40mg Take 1 [facility] 40 mg 4-04 01-05 capsule by ity of capsule 00:00: 00:00 mouth in [place] 00 :00 the Medical morning Branch and 1 capsule in the evening. omeprazole 2022- No [id number] 40mg Take 1 [facility] 40 mg 4-04 01-05 capsule by ity of capsule 00:00: 00:00 mouth in [place] 00 :00 the Medical morning Branch and 1 capsule in the evening. omeprazole 2022- No [id number] 40mg Take 1 [facility] 40 mg 4-04 01-05 capsule by ity of capsule 00:00: 00:00 mouth in [place] 00 :00 the Medical morning Branch and 1 capsule in the evening. IMITREX 5 Yes as needed Uni vers MG/ACTUATIO 4-18 for ity of N NASAL 09:34: migraines SPR[facility] Yes Apply to [place] 0.1% in 4-18 affected ity o f aquaphor 09:34: area(s). [place] (COMPOUNDED 00 Medical ) ointment Branch cariprazine Yes 1.5mg Take 1.5 U nivers (VRAYLAR) 4-18 mg by ity of 1.5 mg (1)- 09:34: mouth [place] 3 mg (6) 00 every Medical CpPk morning. Branch IMITREX 5 Yes as needed Uni vers MG/ACTUATIO 4-18 for ity of N NASAL 09:34: migraines [facility] Yes Apply to [place] 0.1% in 4-18 affected ity o f aquaphor 09:34: area(s). [place] (COMPOUNDED 00 Medical ) ointment Branch cariprazine Yes 1.5mg Take 1.5 U nivers (VRAYLAR) 4-18 mg by ity of 1.5 mg (1)- 09:34: mouth [place] 3 mg (6) 00 every Medical CpPk morning. Branch IMITREX 5 Yes as needed Uni vers MG/ACTUATIO 4-18 for ity of N NASAL 09:34: migraines [place] SPRY [facility] Yes Apply to [place] 0.1% [...] 09:34: migraines [place] SPRY 00 Medical Branch [facility] Yes Apply to [place] [...] NASAL 09:34: migraines [place] SPRY Medical Branch [facility] Yes Apply to [place] 0.1% in 4-18 affected ity o f aquaphor 09:34: area(s). [place] (COMPOUNDED 00 Medical ) ointment Branch cariprazine Yes 1.5mg Take 1.5 U nivers (VRAYLAR) 4-18 mg by ity of 1.5 mg (1)- 09:34: mouth [place] 3 mg (6) 00 every Medical CpPk morning. Branch IMITREX 5 Yes as needed Uni vers MG/ACTUATIO 4-18 for ity of N NASAL 09:34: migraines [place] SPRY 00 Medical Branch [facility] Yes Apply to [place] 0.1% [...] NASAL 09:34: migraines [place] SPRY Medical Branch [facility] Yes Apply to [place] 0.1% in 4-18 affected ity o f aquaphor 09:34: area(s). [place] (COMPOUNDED 00 Medical ) ointment Branch cariprazine Yes 1.5mg Take 1.5 U nivers (VRAYLAR) 4-18 mg by ity of 1.5 mg (1)- 09:34: mouth [place] 3 mg (6) 00 every Medical CpPk morning. Branch IMITREX 5 Yes as needed Uni vers MG/ACTUATIO 4-18 for ity of N NASAL 09:34: migraines [place] SPRY Medical Branch [facility] Yes Apply to [place] 0.1% in 4-18 affected ity o f aquaphor 09:34: area(s). [place] (COMPOUNDED 00 Medical ) ointment Branch cariprazine Yes 1.5mg Take 1.5 U nivers (VRAYLAR) 4-18 mg by ity of 1.5 mg (1)- 09:34: mouth [place] 3 mg (6) 00 every Medical CpPk morning. Branch IMITREX 5 Yes as needed Uni vers MG/ACTUATIO 4-18 for ity of N NASAL 09:34: migraines [place] SPRY Medical Branch [facility] Yes Apply to [place] 0.1% in 4-18 affected ity o f aquaphor 09:34: area(s). [place] (COMPOUNDED 00 Medical ) ointment Branch cariprazine Yes 1.5mg Take 1.5 U nivers (VRAYLAR) 4-18 mg by ity of 1.5 mg (1)- 09:34: mouth [place] 3 mg (6) 00 every Medical CpPk morning. Branch IMITREX 5 Yes as needed Uni vers MG/ACTUATIO 4-18 for ity of N NASAL 09:34: migraines [place] SPRY 00 Medical Branch [facility] Yes Apply to [place] 0.1% [...] 09:34: migraines [place] SPRY 00 Medical Branch [facility] Yes Apply to [place] [...] NASAL 09:34: migraines [place] SPRY Medical Branch [facility] Yes Apply to [place] 0.1% in 4-18 affected ity o f aquaphor 09:34: area(s). [place] (COMPOUNDED 00 Medical ) ointment Branch cariprazine Yes 1.5mg Take 1.5 U nivers (VRAYLAR) 4-18 mg by ity of 1.5 mg (1)- 09:34: mouth [place] 3 mg (6) 00 every Medical CpPk morning. Branch IMITREX 5 Yes as needed Uni vers MG/ACTUATIO 4-18 for ity of N NASAL 09:34: migraines [place] SPRY 00 Medical Branch [facility] Yes Apply to [place] 0.1% [...] NASAL 09:34: migraines [place] SPRY Medical Branch [facility] Yes Apply to [place] 0.1% in 4-18 affected ity o f aquaphor 09:34: area(s). [place] (COMPOUNDED 00 Medical ) ointment Branch cariprazine Yes 1.5mg Take 1.5 U nivers (VRAYLAR) 4-18 mg by ity of 1.5 mg (1)- 09:34: mouth [place] 3 mg (6) 00 every Medical CpPk morning. Branch IMITREX 5 Yes as needed Uni vers MG/ACTUATIO 4-18 for ity of N NASAL 09:34: migraines [place] SPRY Medical Branch [facility] Yes Apply to [place] 0.1% in 4-18 affected ity o f aquaphor 09:34: area(s). [place] (COMPOUNDED 00 Medical ) ointment Branch cariprazine Yes 1.5mg Take 1.5 U nivers (VRAYLAR) 4-18 mg by ity of 1.5 mg (1)- 09:34: mouth [place] 3 mg (6) 00 every Medical CpPk morning. Branch IMITREX 5 Yes as needed Uni vers MG/ACTUATIO 4-18 for ity of N NASAL 09:34: migraines [place] SPRY Medical Branch [facility] Yes Apply to [place] 0.1% in 4-18 affected ity o f aquaphor 09:34: area(s). [place] (COMPOUNDED 00 Medical ) ointment Branch cariprazine Yes 1.5mg Take 1.5 U nivers (VRAYLAR) 4-18 mg by ity of 1.5 mg (1)- 09:34: mouth [place] 3 mg (6) 00 every Medical CpPk morning. Branch IMITREX 5 Yes as needed Uni vers MG/ACTUATIO 4-18 for ity of N NASAL 09:34: migraines [place] SPRY 00 Medical Branch [facility] Yes Apply to [place] 0.1% [...] 09:34: migraines [place] SPRY 00 Medical Branch [facility] Yes Apply to [place] [...] NASAL 09:34: migraines [place] SPRY Medical Branch [facility] Yes Apply to [place] 0.1% in 4-18 affected ity o f aquaphor 09:34: area(s). [place] (COMPOUNDED 00 Medical ) ointment Branch cariprazine Yes 1.5mg Take 1.5 U nivers (VRAYLAR) 4-18 mg by ity of 1.5 mg (1)- 09:34: mouth [place] 3 mg (6) 00 every Medical CpPk morning. Branch IMITREX 5 Yes as needed Uni vers MG/ACTUATIO 4-18 for ity of N NASAL 09:34: migraines [place] SPRY 00 Medical Branch [facility] Yes Apply to [place] 0.1% [...] NASAL 09:34: migraines [place] SPRY Medical Branch [facility] Yes Apply to [place] 0.1% in 4-18 affected ity o f aquaphor 09:34: area(s). [place] (COMPOUNDED 00 Medical ) ointment Branch cariprazine Yes 1.5mg Take 1.5 U nivers (VRAYLAR) 4-18 mg by ity of 1.5 mg (1)- 09:34: mouth [place] 3 mg (6) 00 every Medical CpPk morning. Branch IMITREX 5 Yes as needed Uni vers MG/ACTUATIO 4-18 for ity of N NASAL 09:34: migraines [place] SPRY Medical Branch [facility] Yes Apply to [place] 0.1% in 4-18 affected ity o f aquaphor 09:34: area(s). [place] (COMPOUNDED 00 Medical ) ointment Branch cariprazine Yes 1.5mg Take 1.5 U nivers (VRAYLAR) 4-18 mg by ity of 1.5 mg (1)- 09:34: mouth [place] 3 mg (6) 00 every Medical CpPk morning. Branch IMITREX 5 Yes as needed Uni vers MG/ACTUATIO 4-18 for ity of N NASAL 09:34: migraines [place] SPRY Medical Branch [facility] Yes Apply to [place] 0.1% in 4-18 affected ity o f aquaphor 09:34: area(s). [place] (COMPOUNDED 00 Medical ) ointment Branch cariprazine Yes 1.5mg Take 1.5 U nivers (VRAYLAR) 4-18 mg by ity of 1.5 mg (1)- 09:34: mouth [place] 3 mg (6) 00 every Medical CpPk morning. Branch IMITREX 5 Yes as needed Uni vers MG/ACTUATIO 4-18 for ity of N NASAL 09:34: migraines [place] SPRY 00 Medical Branch [facility] Yes Apply to [place] 0.1% [...] affected ity o f aquaphor 09:34: area(s). [place] (COMPOUNDED 00 Medical ) ointment Branch IMITREX 5 Yes as needed Uni vers MG/ACTUATIO 4-18 for ity of N NASAL 09:34: migraines [place] SPRY 00 Medical Branch triamcinolo Yes Apply to [place] 0.1% in 4-18 affected ity o f aquaphor 09:34: area(s). [place] (COMPOUNDED 00 Medical ) ointment Branch IMITREX 5 Yes as needed Uni vers MG/ACTUATIO 4-18 for ity of N NASAL 09:34: migraines [place] SPRY 00 Medical Branch triamcinolo Yes Apply to [place] 0.1% in 4-18 affected ity o f aquaphor 09:34: area(s). [place] (COMPOUNDED 00 Medical ) ointment Branch IMITREX 5 Yes as needed Uni vers MG/ACTUATIO 4-18 for ity of N NASAL 09:34: migraines [place] SPRY 00 Medical Branch triamcinolo Yes Apply to [place] 0.1% in 4-18 affected ity o f aquaphor 09:34: area(s). [place] (COMPOUNDED 00 Medical ) ointment Branch IMITREX 5 Yes as needed Uni vers MG/ACTUATIO 4-18 for ity of N NASAL 09:34: migraines [place] SPRY 00 Medical Branch triamcinolo Yes Apply to [place] 0.1% in 4-18 affected ity o f aquaphor 09:34: area(s). [place] (COMPOUNDED 00 Medical ) ointment Branch IMITREX [...] 09:34: migraines [place] SPRY 00 Medical Branch [facility] Yes Apply to [place] 0.1% in 18 affected ity o f aquaphor 09:34: area(s). [place] (COMPOUNDED Medical ) ointment Branch IMITREX 5 Yes as needed Uni vers MG/ACTUATIO 11-03 for ity of N NASAL 09:34: migraines [place] SPRY 00 Medical Branch [facility] Yes Apply to [place] 0.1% in 18 affected ity o f aquaphor 09:34: area(s). [place] (COMPOUNDED Medical ) ointment Branch IMITREX 5 Yes as needed Uni vers MG/ACTUATIO 18 for ity of N NASAL 09:34: migraines [place] SPRY Medical Branch [facility] Yes Apply to [place] 0.1% in 18 affected ity o f aquaphor 09:34: area(s). [place] (COMPOUNDED 00 Medical ) ointment Branch dicyclomine [...] 15 Minutes, 100 mL iopamidol 2022- No [id number] 80mL 80 mL, Univers (ISOVUE 10-29 Intravenou [...] dose, On Branch [place] 10/29/22 at 0430, THIERRY NaCl 0.9% 2022- No 1000mL at 999 Uni vers (NS) bolus 10-29 mL/hr, ity of infusion 09:30: 10:19 1,000 mL, [place] 1,000 mL 00 :00 IV Medical Infusion, Branch ONCE, 1 dose, On [place] 10/29/22 at 0430, THIERRY alum-mag No 30mL [...] 1 Medical 40 mg dose, On Branch [facility] 10/29/22 at 0345 proMETHazin 2022- No 25mg 25 mg, IV Univers e 10-29 Piggyback, ity of (PHENERGAN) 08:45: 10:19 at 200 [place] 25 mg in NS 00 :00 mL/hr Medical 50 mL IV Administer Branc h piggyback over 15 (CNR) Minutes, ONCE, 1 dose, On [place] 10/29/22 at 0345, THIERRY dicyclomine 2022-0 2022- No [id number] 20mg Take 1 [facility] 20 mg 10-29 tablet by ity of tablet 00:00: 04:59 mouth 4 [place] 00 :00 (four) Medical times [place] daily for 7 days. dicyclomine 2022-0 2023- No [id number] 20mg Take 1 [facility] 20 mg 10-29-21 tablet by ity of tablet 00:00: 04:59 mouth 4 [place] 00 :00 ([facility]) Medical times [place] daily for 7 days. dicyclomine 2023-0 202- No [id number] 20mg Take 1 [facility] 20 mg 10-29-21 tablet by ity of tablet 00:00: 04:59 mouth 4 [place] 00 :00 ([facility]) Medical times [place] daily for 7 days. dicyclomine 2022-0 202- No [id number] 20mg Take 1 [facility] 20 mg 10-29-21 tablet by ity of tablet 00:00: 04:59 mouth 4 [place] 00 :00 ([facility]) Medical times [place] daily for 7 days. dicyclomine 2022-0 2022- No [id number] 20mg Take 1 [facility] 20 mg 10-29 tablet by ity of tablet 00:00: 04:59 mouth 4 [place] 00 :00 ([facility]) Medical times [place] daily for 7 days. dicyclomine 2022-0 2022- No [id number] 20mg Take 1 [facility] 20 mg 10-29 tablet by ity of tablet 00:00: 04:59 mouth 4 [place] 00 :00 ([facility]) Medical times [place] daily for 7 days. dicyclomine 2022-0 2022- No [id number] 20mg Take 1 [facility] 20 mg 10-29 tablet by ity of tablet 00:00: 04:59 mouth 4 [place] 00 :00 ([facility]) Medical times [place] daily for 7 days. ketorolac 2022-2022- No 30mg 30 mg, Unive rs (TORADOL) 10-28 Slow IV ity of injection 01:45: 01:41 Push, [place] 30 mg 00 :00 ONCE, 1 Medical dose, On Branch e 10/27/22 at 2044, Routine cyclobenzap 2022- No 10mg 10 mg, Uni vers rine 10-28 Oral, ity of (FLEXERIL) 01:45: 01:37 ONCE, 1 [place] tablet 10 00 :00 dose, On Medica l mg e Branch 10/27/22 at 2044, Routine ketorolac 2022- No 30mg 30 mg, Unive rs (TORADOL) 4-12 04-12 Slow IV ity of injection 01:45: 01:43 Push, [place] 30 mg 00 :00 ONCE, 1 Medical dose, On Branch Wed10/27/22 at 204, Routine ibuprofen 2022-0 Yes [id number] 800mg Take 1 U nivers 800 mg 4-11 tablet by ity of tablet 00:00: mouth [place] 00 every 8 Medical (eight) Branch hours as needed for Pain (scale 4-6) or Temp > 38.5 C. cyclobenzap 2022-0 Yes [id number] 10mg Take 1 Univers rine 10 mg 4-11 tablet by ity of tablet 00:00: mouth in [place] 00 the Medical morning Branch and 1 tablet at noon and 1 tablet in the evening. ibuprofen 2022-0 Yes [id number] 800mg Take 1 U nivers 800 mg 4-11 tablet by ity of tablet 00:00: mouth [place] 00 every 8 Medical (eight) Branch hours as needed for Pain (scale 4-6) or Temp > 38.5 C. cyclobenzap 2022-0 Yes [id number] 10mg Take 1 Univers rine 10 mg 4-11 tablet by ity of tablet 00:00: mouth in [place] 00 the Medical morning Branch and 1 tablet at noon and 1 tablet in the evening. ibuprofen 2022-0 Yes [id number] 800mg Take 1 U nivers 800 mg 4-11 tablet by ity of tablet 00:00: mouth [place] 00 every 8 Medical (eight) Branch hours as needed for Pain (scale 4-6) or Temp > 38.5 C. cyclobenzap 2022-0 Yes [id number] 10mg Take 1 [facility] rine 10 mg 4-11 tablet by ity of tablet 00:00: mouth in [place] 00 the Medical morning Branch and 1 tablet at noon and 1 tablet in the evening. ibuprofen 2022-0 Yes [id number] 800mg Take 1 U nivers 800 mg 4-11 tablet by ity of tablet 00:00: mouth [place] 00 every 8 Medical (eight) Branch hours as needed for Pain (scale 4-6) or Temp > 38.5 C. cyclobenzap 2022-0 Yes [id number] 10mg Take 1 [facility] rine 10 mg 4-11 tablet by ity of tablet 00:00: mouth in [place] 00 the Medical morning Branch and 1 tablet at noon and 1 tablet in the evening. ibuprofen 2023-0 Yes [id number] 800mg Take 1 U nivers 800 mg 4-11 tablet by ity of tablet 00:00: mouth [place] 00 every 8 Medical (eight) Branch hours as needed for Pain (scale 4-6) or Temp > 38.5 C. cyclobenzap 2023-0 Yes [id number] 10mg Take 1 [facility] rine 10 mg 4-11 tablet by ity of tablet 00:00: mouth in [place] 00 the Medical morning Branch and 1 tablet at noon and 1 tablet in the evening. ibuprofen 3-0 Yes [id number] 800mg Take 1 U nivers 800 mg 4-11 tablet by ity of tablet 00:00: mouth [place] 00 every 8 Medical (eight) Branch hours as needed for Pain (scale 4-6) or Temp > 38.5 C. cyclobenzap 3-0 Yes [id number] 10mg Take 1 Univers rine 10 mg 4-11 tablet by ity of tablet 00:00: mouth in [place] 00 the Medical morning Branch and 1 tablet at noon and 1 tablet in the evening. ibuprofen 2022-0 Yes [id number] 800mg Take 1 U nivers 800 mg 4-11 tablet by ity of tablet 00:00: mouth [place] 00 every 8 Medical (eight) Branch hours as needed for Pain (scale 4-6) or Temp > 38.5 C. cyclobenzap 3-0 Yes [id number] 10mg Take 1 Univers rine 10 mg 4-11 tablet by ity of tablet 00:00: mouth in [place] 00 the Medical morning Branch and 1 tablet at noon and 1 tablet in the evening. ibuprofen 3-0 Yes [id number] 800mg Take 1 U nivers 800 mg 4-11 tablet by ity of tablet 00:00: mouth [place] 00 every 8 Medical (eight) Branch hours as needed for Pain (scale 4-6) or Temp > 38.5 C. cyclobenzap 2023-0 Yes [id number] 10mg Take 1 [facility] rine 10 mg 4-11 tablet by ity of tablet 00:00: mouth in [place] 00 the Medical morning Branch and 1 tablet at noon and 1 tablet in the evening. ibuprofen 2023-0 Yes [id number] 800mg Take 1 U nivers 800 mg 4-11 tablet by ity of tablet 00:00: mouth [place] 00 every 8 Medical (eight) Branch hours as needed for Pain (scale 4-6) or Temp > 38.5 C. cyclobenzap 2023-0 Yes [id number] 10mg Take 1 [facility] rine 10 mg 4-11 tablet by ity of tablet 00:00: mouth in [place] 00 the Medical morning Branch and 1 tablet at noon and 1 tablet in the evening. ibuprofen 3-0 Yes [id number] 800mg Take 1 U nivers 800 mg 4-11 tablet by ity of tablet 00:00: mouth [place] 00 every 8 Medical (eight) Branch hours as needed for Pain (scale 4-6) or Temp > 38.5 C. cyclobenzap 2022-0 Yes [id number] 10mg Take 1 Univers rine 10 mg 4-11 tablet by ity of tablet 00:00: mouth in [place] 00 the Medical morning Branch and 1 tablet at noon and 1 tablet in the evening. ibuprofen 2022-0 Yes [id number] 800mg Take 1 U nivers 800 mg 4-11 tablet by ity of tablet 00:00: mouth [place] 00 every 8 Medical (eight) Branch hours as needed for Pain (scale 4-6) or Temp > 38.5 C. cyclobenzap 2022-0 Yes [id number] 10mg Take 1 Univers rine 10 mg 4-11 tablet by ity of tablet 00:00: mouth in [place] 00 the Medical morning Branch and 1 tablet at noon and 1 tablet in the evening. ibuprofen 3-0 Yes [id number] 800mg Take 1 U nivers 800 mg 4-11 tablet by ity of tablet 00:00: mouth [place] 00 every 8 Medical (eight) Branch hours as needed for Pain (scale 4-6) or Temp > 38.5 C. cyclobenzap 3-0 Yes [id number] 10mg Take 1 Univers rine 10 mg 4-11 tablet by ity of tablet 00:00: mouth in [place] 00 the Medical morning Branch and 1 tablet at noon and 1 tablet in the evening. ibuprofen 2023-0 Yes [id number] 800mg Take 1 U nivers 800 mg 4-11 tablet by ity of tablet 00:00: mouth [place] 00 every 8 Medical (eight) Branch hours as needed for Pain (scale 4-6) or Temp > 38.5 C. cyclobenzap Yes [id number] 10mg Take 1 Univers rine 10 mg -11 tablet by ity of tablet 00:00: mouth in [place] 00 the Medical morning Branch and 1 tablet at noon and 1 tablet in the evening. ibuprofen 2022- No [id number] 800mg Take 1 [facility] 800 mg 10-27- tablet by ity of tablet 00:00: 00:00 mouth [place] 00 :00 every 8 Medical (eight) Branch hours as needed for Pain (scale 4-6) or Temp > 38.5 C. cyclobenzap 2022- No [id number] 10mg Take 1 Univers rine 10 mg 10-27 tablet by ity of tablet 00:00: 00:00 mouth in [place] 00 :00 the Medical morning Branch and 1 tablet at noon and 1 tablet in the evening. ibuprofen 2022- No [id number] 800mg Take 1 [facility] 800 mg 10-27 tablet by ity of tablet 00:00: 00:00 mouth [place] 00 :00 every 8 Medical (eight) Branch hours as needed for Pain (scale 4-6) or Temp > 38.5 C. cyclobenzap 2022- No [id number] 10mg Take 1 Univers rine 10 mg 10-27 tablet by ity of tablet 00:00: 00:00 mouth in [place] 00 :00 the Medical morning Branch and 1 tablet at noon and 1 tablet in the evening. iopamidol 2022- No [id number] 65mL 65 mL, Univers (ISOVUE 10-20 Intravenou ity o f 370-500 mL) 23:15: 23:15 s, ONCE, 1 [place] injection 00 :00 dose, On Medica l 65 mL 10/20/22 Branch at 1815, Routine naproxen 2022- No 500mg 500 mg, Univ ers (NAPROSYN) 10-20 Oral, ity of tablet 500 19:30: 21:25 ONCE, 1 [place] mg 00 :00 dose, On Medical Wed10/20/22 Branch at 1625, Routine pantoprazol 2022- Yes [id number] 40mg Take 1 Univers e 40 mg EC 3-27 tablet by ity of tablet 00:00: mouth in [place] 00 the Medical morning Branch and 1 tablet in the evening. pantoprazol 2023-0 Yes [id number] 40mg Take 1 Univers e 40 mg EC 3-27 tablet by ity of tablet 00:00: mouth in [place] 00 the Medical morning Branch and 1 tablet in the evening. pantoprazol 2023-0 Yes [id number] 40mg Take 1 [facility] 40 mg EC 3-27 tablet by ity of tablet 00:00: mouth in [place] [address] the Medical morning Branch and 1 tablet in the evening. pantoprazol 2023-0 Yes [id number] 40mg Take 1 [facility] e 40 mg EC 3-27 tablet by ity of tablet 00:00: mouth in [place] [address] the Medical morning Branch and 1 tablet in the evening. pantoprazol 2023-0 Yes [id number] 40mg Take 1 [facility] e 40 mg EC 3-27 tablet by ity of tablet 00:00: mouth in [place] [address] the Medical morning Branch and 1 tablet in the evening. pantoprazol 2023-0 Yes [id number] 40mg Take 1 [facility] e 40 mg EC 3-27 tablet by ity of tablet 00:00: mouth in [place] [address] the Medical morning Branch and 1 tablet in the evening. pantoprazol 2023-0 Yes [id number] 40mg Take 1 [facility] e 40 mg EC 3-27 tablet by ity of tablet 00:00: mouth in [place] [address] the Medical morning Branch and 1 tablet in the evening. pantoprazol 2023-0 Yes [id number] 40mg Take 1 [facility] e 40 mg EC 3-27 tablet by ity of tablet 00:00: mouth in [place] [address] the Medical morning Branch and 1 tablet in the evening. pantoprazol 2023-0 Yes [id number] 40mg Take 1 [facility] e 40 mg EC 3-27 tablet by ity of tablet 00:00: mouth in [place] [address] the Medical morning Branch and 1 tablet in the evening. pantoprazol 2023-0 Yes [id number] 40mg Take 1 [facility] e 40 mg EC 3-27 tablet by ity of tablet 00:00: mouth in [place] [address] the Medical morning Branch and 1 tablet in the evening. pantoprazol 2023-0 Yes [id number] 40mg Take 1 [facility] e 40 mg EC 3-27 tablet by ity of tablet 00:00: mouth in [place] 00 the Medical morning Branch and 1 tablet in the evening. pantoprazol 2022-0 Yes [id number] 40mg Take 1 [facility] e 40 mg EC 3-27 tablet by ity of tablet 00:00: mouth in [place] 00 the Medical morning Branch and 1 tablet in the evening. pantoprazol 2022-0 Yes [id number] 40mg Take 1 [facility] e 40 mg EC 3-27 tablet by ity of tablet 00:00: mouth in [place] 00 the [facility] morning Branch and 1 tablet in the evening. pantoprazol 2022-0 Yes [id number] 40mg Take 1 [facility] e 40 mg EC 3-27 tablet by ity of tablet 00:00: mouth in [place] 00 the Medical morning Branch and 1 tablet in the evening. pantoprazol 2022-2022- No [id number] 40mg Take 1 [facility] e 40 mg EC 3-27 04-19 tablet by ity of tablet 00:00: 00:00 mouth in [place] 00 :00 the [facility] morning Rodeo and 1 tablet in the evening. pantoprazol 2022-2022- No [id number] 40mg Take 1 [facility] e 40 mg EC 3-27 04-19 tablet by ity of tablet 00:00: 00:00 mouth in [place] 00 :00 the [facility] morning Branch and 1 tablet in the evening. pantoprazol 2022-2022- No [id number] 40mg Take 1 [facility] e 40 mg EC 3-27 04-19 tablet by ity of tablet 00:00: 00:00 mouth in [place] 00 :00 the [facility] morning Rodeo and 1 tablet in the evening. iopamidol 2022- No [id number] 100mL 100 mL, Univers (ISOVUE 10-09 Intravenou ity o f 370-500 mL) 06:15: 06:15 s, ONCE, 1 [place] injection 00 :00 dose, On Medica l 100 mL Wed Rodeo 10/09/22 at 0115, Routine ondansetron 2022- No 4mg 4 mg, Slow [facility] (ZOFRAN 10-09 IV Push, ity of (PF)) 06:00: 06:10 ONCE, 1 [place] injection 4 00 :00 dose, On Medi cherie mg Wed [place] 10/09/22 at 0100, THIERRY morpHINE (4 2022- No 4mg 4 mg, Slow [facility] mg/mL) 10-09 03-24 IV Push, ity of injection 4 06:00: 06:11 ONCE, 1 [place] mg 00 :00 dose, On Medical Fri Branch 10/09/22 at 0100, STAT NaCl 0.9% 0 2022- No 1000mL at 999 Uni vers (NS) bolus 10-09-24 mL/hr, ity of infusion 04:45: 05:39 1,000 mL, [place] 1,000 mL 00 :00 IV Medical Infusion, Branch ONCE, 1 dose, On [place] 10/08/22 at 2345, THIERRY ibuprofen 2022-0 Yes [id number] 600mg Take 1 [facility] 600 mg 3-24 tablet by ity of tablet 00:00: mouth [place] 00 every 6 Medical (six) Branch hours as needed for Pain (scale 4-6). ibuprofen 2022-0 Yes [id number] 600mg Take 1 [facility] nivers 600 mg 3-24 tablet by ity of tablet 00:00: mouth [place] 00 every 6 Medical (six) Branch hours as needed for Pain (scale 4-6). esomeprazol 2022-0 Yes [id number] 20mg Take 20 mg [facility] e 20 mg 3-24 by mouth ity of capsule 00:00: daily [place] 00 before a Medical meal. Branch ibuprofen 2022-0 Yes [id number] 600mg Take 1 [facility] nivers 600 mg 3-24 tablet by ity of tablet 00:00: mouth [place] 00 every 6 Medical (six) Branch hours as needed for Pain (scale 4-6). ibuprofen 2022-0 Yes [id number] 600mg Take 1 [facility] nivers 600 mg 3-24 tablet by ity of tablet 00:00: mouth [place] 00 every 6 Medical (six) Branch hours as needed for Pain (scale 4-6). ibuprofen 2022-0 Yes [id number] 600mg Take 1 [facility] nivers 600 mg 3-24 tablet by ity of tablet 00:00: mouth [place] 00 every 6 Medical (six) Branch hours as needed for Pain (scale 4-6). ibuprofen 2022-0 Yes [id number] 600mg Take 1 [facility] nivers 600 mg 3-24 tablet by ity of tablet 00:00: mouth [place] 00 every 6 Medical (six) Branch hours as needed for Pain (scale 4-6). ibuprofen 2023-0 Yes [id number] 600mg Take 1 [facility] nivers 600 mg 3-24 tablet by ity of tablet 00:00: mouth [place] 00 every 6 Medical (six) Branch hours as needed for Pain (scale 4-6). ibuprofen 2023-0 Yes [id number] 600mg Take 1 [facility] nivers 600 mg 3-24 tablet by ity of tablet 00:00: mouth [place] 00 every 6 Medical (six) Branch hours as needed for Pain (scale 4-6). ibuprofen 2023-0 Yes [id number] 600mg Take 1 [facility] nivers 600 mg 3-24 tablet by ity of tablet 00:00: mouth [place] 00 every 6 Medical (six) Branch hours as needed for Pain (scale 4-6). ibuprofen 2023-0 Yes [id number] 600mg Take 1 [facility] nivers 600 mg 3-24 tablet by ity of tablet 00:00: mouth [place] 00 every 6 Medical (six) Branch hours as needed for Pain (scale 4-6). ibuprofen 2023-0 Yes [id number] 600mg Take 1 [facility] nivers 600 mg 3-24 tablet by ity of tablet 00:00: mouth [place] 00 every 6 Medical (six) Branch hours as needed for Pain (scale 4-6). ibuprofen 2023-0 Yes [id number] 600mg Take 1 [facility] nivers 600 mg 3-24 tablet by ity of tablet 00:00: mouth [place] 00 every 6 Medical (six) Branch hours as needed for Pain (scale 4-6). ibuprofen 2023-0 Yes [id number] 600mg Take 1 [facility] nivers 600 mg 3-24 tablet by ity of tablet 00:00: mouth [place] 00 every 6 Medical (six) Branch hours as needed for Pain (scale 4-6). ibuprofen 2023-0 Yes [id number] 600mg Take 1 [facility] nivers 600 mg 3-24 tablet by ity of tablet 00:00: mouth [place] 00 every 6 Medical (six) Branch hours as needed for Pain (scale 4-6). ibuprofen 2023-0 Yes [id number] 600mg Take 1 [facility] nivers 600 mg 3-24 tablet by ity of tablet 00:00: mouth [place] 00 every 6 Medical (six) Branch hours as needed for Pain (scale 4-6). ibuprofen 2023-0 Yes [id number] 600mg Take 1 [facility] nivers 600 mg 3-24 tablet by ity of tablet 00:00: mouth [place] 00 every 6 Medical (six) Branch hours as needed for Pain (scale 4-6). ibuprofen 2023-0 Yes [id number] 600mg Take 1 [facility] nivers 600 mg 3-24 tablet by ity of tablet 00:00: mouth [place] 00 every 6 Medical (six) Branch hours as needed for Pain (scale 4-6). ibuprofen 2023-0 Yes [id number] 600mg Take 1 [facility] nivers 600 mg 3-24 tablet by ity of tablet 00:00: mouth [place] 00 every 6 Medical (six) Branch hours as needed for Pain (scale 4-6). ibuprofen 2023-0 Yes [id number] 600mg Take 1 [facility] nivers 600 mg 3-24 tablet by ity of tablet 00:00: mouth [place] 00 every 6 Medical (six) Branch hours as needed for Pain (scale 4-6). ibuprofen 2023-0 Yes [id number] 600mg Take 1 [facility] nivers 600 mg 3-24 tablet by ity of tablet 00:00: mouth [place] 00 every 6 Medical (six) Branch hours as needed for Pain (scale 4-6). ibuprofen 2023-0 Yes [id number] 600mg Take 1 [facility] nivers 600 mg 3-24 tablet by ity of tablet 00:00: mouth [place] 00 every 6 Medical (six) Branch hours as needed for Pain (scale 4-6). ibuprofen 2023-0 2023- No [id number] 600mg Take 1 [facility] 600 mg 3-24 05-01 tablet by ity of tablet 00:00: 00:00 mouth [place] 00 :00 every 6 Medical (six) Branch hours as needed for Pain (scale 4-6). ibuprofen 2023-0 2023- No [id number] 600mg Take 1 [facility] 600 mg 3-24 05-01 tablet by ity of tablet 00:00: 00:00 mouth [place] 00 :00 every 6 Medical (six) Branch hours as needed for Pain (scale 4-6). dicyclomine 2023-0 2023- No [id number] 20mg Take 1 [facility] 20 mg 3-24 04-01 tablet by ity of tablet 00:00: 04:59 mouth 4 [place] 00 :00 (four) Medical times Branch daily for 7 days. dicyclomine 2023-0 2023- No [id number] 20mg Take 1 [facility] 20 mg 3-24 - tablet by ity of tablet 00:00: 04:59 mouth 4 [place] 00 :00 (four) Medical times Branch daily for 7 days. dicyclomine 2022- No [id number] 20mg Take 1 [facility] 20 mg 3-24 - tablet by ity of tablet 00:00: 04:59 mouth 4 [place] 00 :00 (four) Medical times Branch daily for 7 days. budesonide- 0 Yes [id number] 2{puff} Inhale 2 [facility] glycopyr-fo 3-20 Puffs in ity of rmoterol 00:00: the [place] ([facility] 00 morning Medical AEROSPHERE) and 2 Branch 160-9-4.8 Puffs in mcg/actuati the on HFAA evening. budesonide- 2022-0 Yes [id number] 2{puff} Inhale 2 [facility] glycopyr-fo 3-20 Puffs in ity of rmoterol 00:00: the [place] [facility]) and 2 Branch 160-9-4.8 Puffs in mcg/actuati the on HFAA evening. budesonide- 2022-0 Yes [id number] 2{puff} Inhale 2 [facility] glycopyr-fo 3-20 Puffs in ity of rmoterol 00:00: the [place] ([facility] 00 morning Medical AEROSPHERE) and 2 Branch 160-9-4.8 Puffs in mcg/actuati the on HFAA evening. budesonide- 2022-0 Yes [id number] 2{puff} Inhale 2 [facility] glycopyr-fo 3-20 Puffs in ity of rmoterol 00:00: the [place] ([facility] 00 morning Medical AEROSPHERE) and 2 Branch 160-9-4.8 Puffs in mcg/actuati the on HFAA evening. budesonide- 2022-0 Yes [id number] 2{puff} Inhale 2 [facility] glycopyr-fo 3-20 Puffs in ity of rmoterol 00:00: the [place] ([facility] 00 morning Medical AEROSPHERE) and 2 Branch 160-9-4.8 Puffs in mcg/actuati the on HFAA evening. budesonide- 2022-0 Yes [id number] 2{puff} Inhale 2 [facility] glycopyr-fo 3-20 Puffs in ity of rmoterol 00:00: the [place] ([facility] 00 morning Medical AEROSPHERE) and 2 Branch 160-9-4.8 Puffs in mcg/actuati the on HFAA evening. budesonide- 3-0 Yes [id number] 2{puff} Inhale 2 [facility] glycopyr-fo 3-20 Puffs in ity of rmoterol 00:00: the [place] ([facility] 00 morning Medical AEROSPHERE) and 2 Branch 160-9-4.8 Puffs in mcg/actuati the on HFAA evening. budesonide- 3-0 Yes [id number] 2{puff} Inhale 2 [facility] glycopyr-fo 3-20 Puffs in ity of rmoterol 00:00: the [place] ([facility] morning Medical [facility]) and 2 Branch 160-9-4.8 Puffs in mcg/actuati the on HFAA evening. budesonide- 2022-0 Yes [id number] 2{puff} Inhale 2 [facility] glycopyr-fo 3-20 Puffs in ity of rmoterol 00:00: the [place] ([facility] Medical AEROSPHERE) and 2 Branch 160-9-4.8 Puffs in mcg/actuati the on HFAA evening. budesonide- 3-0 Yes [id number] 2{puff} Inhale 2 [facility] glycopyr-fo 3-20 Puffs in ity of rmoterol 00:00: the [place] ([facility] Medical AEROSPHERE) and 2 Branch 160-9-4.8 Puffs in mcg/actuati the on HFAA evening. budesonide- 3-0 Yes [id number] 2{puff} Inhale 2 [facility] glycopyr-fo 3-20 Puffs in ity of rmoterol 00:00: the [place] ([facility] Medical AEROSPHERE) and 2 Branch 160-9-4.8 Puffs in mcg/actuati the on HFAA evening. budesonide- 3-0 Yes [id number] 2{puff} Inhale 2 [facility] glycopyr-fo 3-20 Puffs in ity of rmoterol 00:00: the [place] ([facility] 00 morning Medical AEROSPHERE) and 2 Branch 160-9-4.8 Puffs in mcg/actuati the on HFAA evening. budesonide- 2023-0 Yes [id number] 2{puff} Inhale 2 [facility] glycopyr-fo 3-20 Puffs in ity of rmoterol 00:00: the [place] ([facility] 00 morning Medical AEROSPHERE) and 2 Branch 160-9-4.8 Puffs in mcg/actuati the on HFAA evening. budesonide- 3-0 Yes [id number] 2{puff} Inhale 2 [facility] glycopyr-fo 3-20 Puffs in ity of rmoterol 00:00: the [place] ([facility] 00 morning Medical AEROSPHERE) and 2 Branch 160-9-4.8 Puffs in mcg/actuati the on HFAA evening. budesonide- 3-0 Yes [id number] 2{puff} Inhale 2 [facility] glycopyr-fo 3-20 Puffs in ity of rmoterol 00:00: the [place] ([facility] 00 morning Medical AEROSPHERE) and 2 Branch 160-9-4.8 Puffs in mcg/actuati the on HFAA evening. budesonide- 3-0 Yes [id number] 2{puff} Inhale 2 [facility] glycopyr-fo 3-20 Puffs in ity of rmoterol 00:00: the [place] ([facility] 00 morning Medical AEROSPHERE) and 2 Branch 160-9-4.8 Puffs in mcg/actuati the on HFAA evening. budesonide- 3-0 Yes [id number] 2{puff} Inhale 2 [facility] glycopyr-fo 3-20 Puffs in ity of rmoterol 00:00: the [place] ([facility] 00 morning Medical AEROSPHERE) and 2 Branch 160-9-4.8 Puffs in mcg/actuati the on HFAA evening. budesonide- 3-0 Yes [id number] 2{puff} Inhale 2 [facility] glycopyr-fo 3-20 Puffs in ity of rmoterol 00:00: the [place] ([facility] 00 morning Medical AEROSPHERE) and 2 Branch 160-9-4.8 Puffs in mcg/actuati the on HFAA evening. budesonide- 2023-0 Yes [id number] 2{puff} Inhale 2 [facility] glycopyr-fo 3-20 Puffs in ity of rmoterol 00:00: the [place] ([facility] 00 [facility] Medical AEROSPHERE) and 2 Branch 160-9-4.8 Puffs in mcg/actuati the on HFAA evening. budesonide- 2023-0 Yes [id number] 2{puff} Inhale 2 [facility] glycopyr-fo 3-20 Puffs in ity of rmoterol 00:00: the [place] ([facility] 00 [facility] and 2 Branch 160-9-4.8 Puffs in mcg/actuati the on HFAA evening. budesonide- 3-0 Yes [id number] 2{puff} Inhale 2 [facility] glycopyr-fo 3-20 Puffs in ity of rmoterol 00:00: the [place] ([facility] and 2 Branch 160-9-4.8 Puffs in mcg/actuati the on HFAA evening. budesonide- 2023-0 Yes [id number] 2{puff} Inhale 2 [facility] glycopyr-fo 3-20 Puffs in ity of rmoterol 00:00: the [place] ([facility] and 2 Branch 160-9-4.8 Puffs in mcg/actuati the on HFAA evening. budesonide- 2023-0 Yes [id number] 2{puff} Inhale 2 [facility] glycopyr-fo 3-20 Puffs in ity of rmoterol 00:00: the [place] ([facility] and 2 Branch 160-9-4.8 Puffs in mcg/actuati the on HFAA evening. budesonide- 2023-0 Yes [id number] 2{puff} Inhale 2 Univers glycopyr-fo 3-20 Puffs in ity of rmoterol 00:00: the [place] ([facility] and 2 Branch 160-9-4.8 Puffs in mcg/actuati the on HFAA evening. budesonide- 2023-0 Yes [id number] 2{puff} Inhale 2 [facility] glycopyr-fo 3-20 Puffs in ity of rmoterol 00:00: the [place] ([facility] 00 morning Medical AEROSPHERE) and 2 Branch 160-9-4.8 Puffs in mcg/actuati the on HFAA evening. budesonide- 2023-0 Yes [id number] 2{puff} Inhale 2 [facility] glycopyr-fo 3-20 Puffs in ity of rmoterol 00:00: the [place] ([facility] 00 morning Medical AEROSPHERE) and 2 Branch 160-9-4.8 Puffs in mcg/actuati the on HFAA evening. budesonide- 3-0 Yes [id number] 2{puff} Inhale 2 [facility] glycopyr-fo 3-20 Puffs in ity of rmoterol 00:00: the [place] ([facility] 00 morning Medical AEROSPHERE) and 2 Branch 160-9-4.8 Puffs in mcg/actuati the on HFAA evening. budesonide- 3-0 Yes [id number] 2{puff} Inhale 2 [facility] glycopyr-fo 3-20 Puffs in ity of rmoterol 00:00: the [place] ([facility] 00 morning Medical AEROSPHERE) and 2 Branch 160-9-4.8 Puffs in mcg/actuati the on HFAA evening. budesonide- 3-0 Yes [id number] 2{puff} Inhale 2 [facility] glycopyr-fo 3-20 Puffs in ity of rmoterol 00:00: the [place] ([facility] 00 morning Medical AEROSPHERE) and 2 Branch 160-9-4.8 Puffs in mcg/actuati the on HFAA evening. budesonide- 2023-0 Yes [id number] 2{puff} Inhale 2 [facility] glycopyr-fo 3-20 Puffs in ity of rmoterol 00:00: the [place] ([facility] 00 morning Medical AEROSPHERE) and 2 Branch 160-9-4.8 Puffs in mcg/actuati the on HFAA evening. budesonide- 3-0 Yes [id number] 2{puff} Inhale 2 Univers glycopyr-fo 3-20 Puffs in ity of rmoterol 00:00: the [place] ([facility] 00 morning Medical AEROSPHERE) and 2 Branch 160-9-4.8 Puffs in mcg/actuati the on HFAA evening. budesonide- 3-0 Yes [id number] 2{puff} Inhale 2 [facility] glycopyr-fo 3-20 Puffs in ity of rmoterol 00:00: the [place] ([facility] 00 [facility] Medical AEROSPHERE) and 2 Branch 160-9-4.8 Puffs in mcg/actuati the on HFAA evening. budesonide- 3-0 Yes [id number] 2{puff} Inhale 2 [facility] glycopyr-fo 3-20 Puffs in ity of rmoterol 00:00: the [place] ([facility] 00 morning Medical AEROSPHERE) and 2 Branch 160-9-4.8 Puffs in mcg/actuati the on HFAA evening. budesonide- 3-0 Yes [id number] 2{puff} Inhale 2 [facility] glycopyr-fo 3-20 Puffs in ity of rmoterol 00:00: the [place] ([facility] 00 [facility] Medical AEROSPHERE) and 2 Branch 160-9-4.8 Puffs in mcg/actuati the on HFAA evening. budesonide- 3-0 Yes [id number] 2{puff} Inhale 2 [facility] glycopyr-fo 3-20 Puffs in ity of rmoterol 00:00: the [place] ([facility] 00 [facility] Medical AEROSPHERE) and 2 Branch 160-9-4.8 Puffs in mcg/actuati the on HFAA evening. budesonide- 3-0 Yes [id number] 2{puff} Inhale 2 [facility] glycopyr-fo 3-20 Puffs in ity of rmoterol 00:00: the [place] ([facility] 00 [facility] Medical [facility] and 2 Branch 160-9-4.8 Puffs in mcg/actuati the on HFAA evening. budesonide- 3-0 Yes [id number] 2{puff} Inhale 2 [facility] glycopyr-fo 3-20 Puffs in ity of rmoterol 00:00: the [place] ([facility] 00 [facility] Medical AEROSPHERE) and 2 Branch 160-9-4.8 Puffs in mcg/actuati the on HFAA evening. budesonide- 3-0 Yes [id number] 2{puff} Inhale 2 [facility] glycopyr-fo 3-20 Puffs in ity of rmoterol 00:00: the [place] ([facility] 00 [facility] Medical AEROSPHERE) and 2 Branch 160-9-4.8 Puffs in mcg/actuati the on HFAA evening. budesonide- 3-0 Yes [id number] 2{puff} Inhale 2 [facility] glycopyr-fo 3-20 Puffs in ity of rmoterol 00:00: the [place] ([facility] Medical AEROSPHERE) and 2 Branch 160-9-4.8 Puffs in mcg/actuati the on HFAA evening. budesonide- 3-0 Yes [id number] 2{puff} Inhale 2 Univers glycopyr-fo 3-20 Puffs in ity of rmoterol 00:00: the [place] ([facility] Medical [facility] and 2 Branch 160-9-4.8 Puffs in mcg/actuati the on HFAA evening. budesonide- 3-0 Yes [id number] 2{puff} Inhale 2 Univers glycopyr-fo 3-20 Puffs in ity of rmoterol 00:00: the [place] ([facility] Medical [facility] and 2 Branch 160-9-4.8 Puffs in mcg/actuati the on HFAA evening. budesonide- 3-0 Yes [id number] 2{puff} Inhale 2 Univers glycopyr-fo 3-20 Puffs in ity of rmoterol 00:00: the [place] ([facility] and 2 Branch 160-9-4.8 Puffs in mcg/actuati the on HFAA evening. budesonide- 3-0 Yes [id number] 2{puff} Inhale 2 Univers glycopyr-fo 3-20 Puffs in ity of rmoterol 00:00: the [place] [facility] and 2 Branch 160-9-4.8 Puffs in mcg/actuati the on HFAA evening. budesonide- 2023-0 Yes [id number] 2{puff} Inhale 2 Univers glycopyr-fo 3-20 Puffs in ity of rmoterol 00:00: the [place] ([facility] 00 morning Medical AEROSPHERE) and 2 Branch 160-9-4.8 Puffs in mcg/actuati the on HFAA evening. budesonide- 2023-0 Yes [id number] 2{puff} Inhale 2 Univers glycopyr-fo 3-20 Puffs in ity of rmoterol 00:00: the [place] ([facility] 00 morning Medical AEROSPHERE) and 2 Branch 160-9-4.8 Puffs in mcg/actuati the on HFAA evening. budesonide- 2023-0 Yes [id number] 2{puff} Inhale 2 Univers glycopyr-fo 3-20 Puffs in ity of rmoterol 00:00: the [place] ([facility] 00 morning Medical AEROSPHERE) and 2 Branch 160-9-4.8 Puffs in mcg/actuati the on HFAA evening. budesonide- 2023-0 Yes [id number] 2{puff} Inhale 2 Univers glycopyr-fo 3-20 Puffs in ity of rmoterol 00:00: the [place] ([facility] 00 morning Medical AEROSPHERE) and 2 Branch 160-9-4.8 Puffs in mcg/actuati the on HFAA evening. budesonide- 3-0 Yes [id number] 2{puff} Inhale 2 Univers glycopyr-fo 3-20 Puffs in ity of rmoterol 00:00: the [place] ([facility] 00 morning Medical AEROSPHERE) and 2 Branch 160-9-4.8 Puffs in mcg/actuati the on HFAA evening. budesonide- 2023-0 Yes [id number] 2{puff} Inhale 2 Univers glycopyr-fo 3-20 Puffs in ity of rmoterol 00:00: the [place] ([facility] 00 morning Medical AEROSPHERE) and 2 Branch 160-9-4.8 Puffs in mcg/actuati the on HFAA evening. budesonide- 2023-0 Yes [id number] 2{puff} Inhale 2 Univers glycopyr-fo 3-20 Puffs in ity of rmoterol 00:00: the [place] ([facility] 00 morning Medical AEROSPHERE) and 2 Branch 160-9-4.8 Puffs in mcg/actuati the on HFAA evening. budesonide- 2023-0 Yes [id number] 2{puff} Inhale 2 Univers glycopyr-fo 3-20 Puffs in ity of rmoterol 00:00: the [place] ([facility] and 2 Branch 160-9-4.8 Puffs in mcg/actuati the on HFAA evening. budesonide- 2023-0 Yes [id number] 2{puff} Inhale 2 Univers glycopyr-fo 3-20 Puffs in ity of rmoterol 00:00: the [place] ([facility] and 2 Branch 160-9-4.8 Puffs in mcg/actuati the on HFAA evening. budesonide- 2023-0 Yes [id number] 2{puff} Inhale 2 Univers glycopyr-fo 3-20 Puffs in ity of rmoterol 00:00: the [place] ([facility] and 2 Branch 160-9-4.8 Puffs in mcg/actuati the on HFAA evening. budesonide- 2023-0 Yes [id number] 2{puff} Inhale 2 Univers glycopyr-fo 3-20 Puffs in ity of rmoterol 00:00: the [place] ([facility] and 2 Branch 160-9-4.8 Puffs in mcg/actuati the on HFAA evening. budesonide- 3-0 Yes [id number] 2{puff} Inhale 2 Univers glycopyr-fo 3-20 Puffs in ity of rmoterol 00:00: the [place] ([facility] and 2 Branch 160-9-4.8 Puffs in mcg/actuati the on HFAA evening. budesonide- 2023-0 Yes [id number] 2{puff} Inhale 2 Univers glycopyr-fo 3-20 Puffs in ity of rmoterol 00:00: the [place] ([facility] and 2 Branch 160-9-4.8 Puffs in mcg/actuati the on HFAA evening. budesonide- 2023-0 Yes [id number] 2{puff} Inhale 2 Univers glycopyr-fo 3-20 Puffs in ity of rmoterol 00:00: the [place] ([facility] 00 morning Medical AEROSPHERE) and 2 Branch 160-9-4.8 Puffs in mcg/actuati the on HFAA evening. budesonide- 2023-0 Yes [id number] 2{puff} Inhale 2 Univers glycopyr-fo 3-20 Puffs in ity of rmoterol 00:00: the [place] ([facility] 00 morning Medical AEROSPHERE) and 2 Branch 160-9-4.8 Puffs in mcg/actuati the on HFAA evening. budesonide- 3-0 Yes [id number] 2{puff} Inhale 2 [facility] glycopyr-fo 3-20 Puffs in ity of rmoterol 00:00: the [place] ([facility] 00 morning Medical AEROSPHERE) and 2 Branch 160-9-4.8 Puffs in mcg/actuati the on HFAA evening. budesonide- 3-0 Yes [id number] 2{puff} Inhale 2 [facility] glycopyr-fo 3-20 Puffs in ity of rmoterol 00:00: the [place] ([facility] 00 morning Medical AEROSPHERE) and 2 Branch 160-9-4.8 Puffs in mcg/actuati the on HFAA evening. budesonide- 3-0 Yes [id number] 2{puff} Inhale 2 [facility] glycopyr-fo 3-20 Puffs in ity of rmoterol 00:00: the [place] ([facility] 00 morning Medical AEROSPHERE) and 2 Branch 160-9-4.8 Puffs in mcg/actuati the on HFAA evening. budesonide- 2023-0 Yes [id number] 2{puff} Inhale 2 [facility] glycopyr-fo 3-20 Puffs in ity of rmoterol 00:00: the [place] ([facility] 00 morning Medical AEROSPHERE) and 2 Branch 160-9-4.8 Puffs in mcg/actuati the on HFAA evening. budesonide- 2023-0 Yes [id number] 2{puff} Inhale 2 [facility] glycopyr-fo 3-20 Puffs in ity of rmoterol 00:00: the [place] ([facility] 00 morning Medical AEROSPHERE) and 2 Branch 160-9-4.8 Puffs in mcg/actuati the on HFAA evening. budesonide- 3-0 Yes [id number] 2{puff} Inhale 2 [facility] glycopyr-fo 3-20 Puffs in ity of rmoterol 00:00: the [place] ([facility] 00 [facility] and 2 Branch 160-9-4.8 Puffs in mcg/actuati the on HFAA evening. budesonide- 2022-0 Yes [id number] 2{puff} Inhale 2 Univers glycopyr-fo 3-20 Puffs in ity of rmoterol 00:00: the [place] ([facility] 00 morning Medical AEROSPHERE) and 2 Branch 160-9-4.8 Puffs in mcg/actuati the on HFAA evening. budesonide- 2022-0 Yes [id number] 2{puff} Inhale 2 Univers glycopyr-fo 3-20 Puffs in ity of rmoterol 00:00: the [place] [facility] and 2 Branch 160-9-4.8 Puffs in mcg/actuati the on HFAA evening. budesonide- 2022-0 Yes [id number] 2{puff} Inhale 2 Univers glycopyr-fo 3-20 Puffs in ity of rmoterol 00:00: the [place] ([facility] and 2 Branch 160-9-4.8 Puffs in mcg/actuati the on HFAA evening. budesonide- 2022-0 Yes [id number] 2{puff} Inhale 2 Univers glycopyr-fo 3-20 Puffs in ity of rmoterol 00:00: the [place] ([facility] 00 [facility] and 2 Branch 160-9-4.8 Puffs in mcg/actuati the on HFAA evening. budesonide- 3-0 Yes [id number] 2{puff} Inhale 2 Univers glycopyr-fo 3-20 Puffs in ity of rmoterol 00:00: the [place] ([facility] and 2 Branch 160-9-4.8 Puffs in mcg/actuati the on HFAA evening. budesonide- 3-0 Yes [id number] 2{puff} Inhale 2 Univers glycopyr-fo 3-20 Puffs in ity of rmoterol 00:00: the [place] ([facility] 00 [facility] Medical AEROSPHERE) and 2 Branch 160-9-4.8 Puffs in mcg/actuati the on HFAA evening. budesonide- 3-0 Yes [id number] 2{puff} Inhale 2 Univers glycopyr-fo 3-20 Puffs in ity of rmoterol 00:00: the [place] ([facility] Medical AEROS[facility]ERE) and 2 Branch 160-9-4.8 Puffs in mcg/actuati the on HFAA evening. budesonide- 3-0 Yes [id number] 2{puff} Inhale 2 Univers glycopyr-fo 3-20 Puffs in ity of rmoterol 00:00: the [place] ([facility] and 2 Branch 160-9-4.8 Puffs in mcg/actuati the on HFAA evening. budesonide- 2022-0 Yes [id number] 2{puff} Inhale 2 Univers glycopyr-fo 3-20 Puffs in ity of rmoterol 00:00: the [place] ([facility] and 2 Branch 160-9-4.8 Puffs in mcg/actuati the on HFAA evening. budesonide- 3-0 Yes [id number] 2{puff} Inhale 2 Univers glycopyr-fo 3-20 Puffs in ity of rmoterol 00:00: the [place] ([facility] and 2 Branch 160-9-4.8 Puffs in mcg/actuati the on HFAA evening. budesonide- 3-0 Yes [id number] 2{puff} Inhale 2 Univers glycopyr-fo 3-20 Puffs in ity of rmoterol 00:00: the [place] ([facility] and 2 Branch 160-9-4.8 Puffs in mcg/actuati the on HFAA evening. budesonide- 3-0 Yes [id number] 2{puff} Inhale 2 Univers glycopyr-fo 3-20 Puffs in ity of rmoterol 00:00: the [place] ([facility] 00 morning Medical AEROSPHERE) and 2 Branch 160-9-4.8 Puffs in mcg/actuati the on HFAA evening. budesonide- 3-0 Yes [id number] 2{puff} Inhale 2 Univers glycopyr-fo 3-20 Puffs in ity of rmoterol 00:00: the [place] ([facility] 00 morning Medical AEROSPHERE) and 2 Branch 160-9-4.8 Puffs in mcg/actuati the on HFAA evening. budesonide- 3-0 Yes [id number] 2{puff} Inhale 2 Univers glycopyr-fo 3-20 Puffs in ity of rmoterol 00:00: the [place] ([facility] 00 morning Medical AEROSPHERE) and 2 Branch 160-9-4.8 Puffs in mcg/actuati the on HFAA evening. budesonide- 3-0 Yes [id number] 2{puff} Inhale 2 Univers glycopyr-fo 3-20 Puffs in ity of rmoterol 00:00: the [place] ([facility] 00 morning Medical AEROSPHERE) and 2 Branch 160-9-4.8 Puffs in mcg/actuati the on HFAA evening. budesonide- 3-0 Yes [id number] 2{puff} Inhale 2 Univers glycopyr-fo 3-20 Puffs in ity of rmoterol 00:00: the [place] ([facility] 00 morning Medical AEROSPHERE) and 2 Branch 160-9-4.8 Puffs in mcg/actuati the on HFAA evening. budesonide- 3-0 Yes [id number] 2{puff} Inhale 2 Univers glycopyr-fo 3-20 Puffs in ity of rmoterol 00:00: the [place] ([facility] 00 morning Medical AEROSPHERE) and 2 Branch 160-9-4.8 Puffs in mcg/actuati the on HFAA evening. budesonide- 3-0 Yes [id number] 2{puff} Inhale 2 Univers glycopyr-fo 3-20 Puffs in ity of rmoterol 00:00: the [place] ([facility] 00 morning Medical AEROSPHERE) and 2 Branch 160-9-4.8 Puffs in mcg/actuati the on HFAA evening. budesonide- 3-0 Yes [id number] 2{puff} Inhale 2 Univers glycopyr-fo 3-20 Puffs in ity of rmoterol 00:00: the [place] ([facility] 00 [facility] and 2 Branch 160-9-4.8 Puffs in mcg/actuati the on HFAA evening. budesonide- 3-0 Yes [id number] 2{puff} Inhale 2 Univers glycopyr-fo 3-20 Puffs in ity of rmoterol 00:00: the [place] ([facility] Medical AEROSPHERE) and 2 Branch 160-9-4.8 Puffs in mcg/actuati the on HFAA evening. budesonide- 3-0 Yes [id number] 2{puff} Inhale 2 Univers glycopyr-fo 3-20 Puffs in ity of rmoterol 00:00: the [place] ([facility] and 2 Branch 160-9-4.8 Puffs in mcg/actuati the on HFAA evening. budesonide- 3-0 Yes [id number] 2{puff} Inhale 2 Univers glycopyr-fo 3-20 Puffs in ity of rmoterol 00:00: the [place] ([facility] and 2 Branch 160-9-4.8 Puffs in mcg/actuati the on HFAA evening. budesonide- 3-0 Yes [id number] 2{puff} Inhale 2 Univers glycopyr-fo 3-20 Puffs in ity of rmoterol 00:00: the [place] ([facility]) and 2 Branch 160-9-4.8 Puffs in mcg/actuati the on HFAA evening. budesonide- 2023-0 Yes [id number] 2{puff} Inhale 2 Univers glycopyr-fo 3-20 Puffs in ity of rmoterol 00:00: the [place] ([facility] and 2 Branch 160-9-4.8 Puffs in mcg/actuati the on HFAA evening. budesonide- 3-0 Yes [id number] 2{puff} Inhale 2 Univers glycopyr-fo 3-20 Puffs in ity of rmoterol 00:00: the [place] ([facility] 00 morning Medical AEROSPHERE) and 2 Branch 160-9-4.8 Puffs in mcg/actuati the on HFAA evening. budesonide- 3-0 Yes [id number] 2{puff} Inhale 2 Univers glycopyr-fo 3-20 Puffs in ity of rmoterol 00:00: the [place] ([facility] 00 morning Medical AEROSPHERE) and 2 Branch 160-9-4.8 Puffs in mcg/actuati the on HFAA evening. budesonide- 3-0 Yes [id number] 2{puff} Inhale 2 Univers glycopyr-fo 3-20 Puffs in ity of rmoterol 00:00: the [place] ([facility] 00 morning Medical AEROSPHERE) and 2 Branch 160-9-4.8 Puffs in mcg/actuati the on HFAA evening. budesonide- 3-0 Yes [id number] 2{puff} Inhale 2 Univers glycopyr-fo 3-20 Puffs in ity of rmoterol 00:00: the [place] ([facility] 00 morning Medical AEROSPHERE) and 2 Branch 160-9-4.8 Puffs in mcg/actuati the on HFAA evening. budesonide- 3-0 Yes [id number] 2{puff} Inhale 2 Univers glycopyr-fo 3-20 Puffs in ity of rmoterol 00:00: the [place] ([facility] 00 morning Medical AEROSPHERE) and 2 Branch 160-9-4.8 Puffs in mcg/actuati the on HFAA evening. budesonide- 3-0 Yes [id number] 2{puff} Inhale 2 Univers glycopyr-fo 3-20 Puffs in ity of rmoterol 00:00: the [place] ([facility] 00 morning Medical AEROSPHERE) and 2 Branch 160-9-4.8 Puffs in mcg/actuati the on HFAA evening. budesonide- 3-0 Yes [id number] 2{puff} Inhale 2 Univers glycopyr-fo 3-20 Puffs in ity of rmoterol 00:00: the [place] ([facility] 00 morning Medical AEROSPHERE) and 2 Branch 160-9-4.8 Puffs in mcg/actuati the on HFAA evening. budesonide- 3-0 Yes [id number] 2{puff} Inhale 2 Univers glycopyr-fo 3-20 Puffs in ity of rmoterol 00:00: the [place] ([facility] 00 [facility] Medical AEROSPHERE) and 2 Branch 160-9-4.8 Puffs in mcg/actuati the on HFAA evening. budesonide- 3-0 Yes [id number] 2{puff} Inhale 2 Univers glycopyr-fo 3-20 Puffs in ity of rmoterol 00:00: the [place] ([facility] 00 morning Medical AEROSPHERE) and 2 Branch 160-9-4.8 Puffs in mcg/actuati the on HFAA evening. budesonide- 3-0 Yes [id number] 2{puff} Inhale 2 Univers glycopyr-fo 3-20 Puffs in ity of rmoterol 00:00: the [place] ([facility] and 2 Branch 160-9-4.8 Puffs in mcg/actuati the on HFAA evening. budesonide- 3-0 Yes [id number] 2{puff} Inhale 2 Univers glycopyr-fo 3-20 Puffs in ity of rmoterol 00:00: the [place] ([facility] and 2 Branch 160-9-4.8 Puffs in mcg/actuati the on HFAA evening. budesonide- 3-0 Yes [id number] 2{puff} Inhale 2 Univers glycopyr-fo 3-20 Puffs in ity of rmoterol 00:00: the [place] ([facility] and 2 Branch 160-9-4.8 Puffs in mcg/actuati the on HFAA evening. budesonide- 3-0 Yes [id number] 2{puff} Inhale 2 Univers glycopyr-fo 3-20 Puffs in ity of rmoterol 00:00: the [place] ([facility]) and 2 Branch 160-9-4.8 Puffs in mcg/actuati the on HFAA evening. budesonide- 2023-0 Yes [id number] 2{puff} Inhale 2 Univers glycopyr-fo 3-20 Puffs in ity of rmoterol 00:00: the [place] ([facility] 00 morning Medical AEROSPHERE) and 2 Branch 160-9-4.8 Puffs in mcg/actuati the on HFAA evening. budesonide- 2023-0 Yes [id number] 2{puff} Inhale 2 Univers glycopyr-fo 3-20 Puffs in ity of rmoterol 00:00: the [place] ([facility] 00 morning Medical AEROSPHERE) and 2 Branch 160-9-4.8 Puffs in mcg/actuati the on HFAA evening. budesonide- 2023-0 Yes [id number] 2{puff} Inhale 2 Univers glycopyr-fo 3-20 Puffs in ity of rmoterol 00:00: the [place] ([facility] morning Medical AEROSPHERE) and 2 Branch 160-9-4.8 Puffs in mcg/actuati the on HFAA evening. budesonide- 3-0 Yes [id number] 2{puff} Inhale 2 Univers glycopyr-fo 3-20 Puffs in ity of rmoterol 00:00: the [place] ([facility] 00 morning Medical AEROSPHERE) and 2 Branch 160-9-4.8 Puffs in mcg/actuati the on HFAA evening. budesonide- 3-0 Yes [id number] 2{puff} Inhale 2 Univers glycopyr-fo 3-20 Puffs in ity of rmoterol 00:00: the [place] ([facility] morning Medical AEROSPHERE) and 2 Branch 160-9-4.8 Puffs in mcg/actuati the on HFAA evening. budesonide- 2023-0 Yes [id number] 2{puff} Inhale 2 Univers glycopyr-fo 3-20 Puffs in ity of rmoterol 00:00: the [place] ([facility] morning Medical AEROSPHERE) and 2 Branch 160-9-4.8 Puffs in mcg/actuati the on HFAA evening. budesonide- 2023-0 Yes [id number] 2{puff} Inhale 2 Univers glycopyr-fo 3-20 Puffs in ity of rmoterol 00:00: the [place] ([facility] 00 morning Medical AEROSPHERE) and 2 Branch 160-9-4.8 Puffs in mcg/actuati the on HFAA evening. budesonide- 2023-0 Yes [id number] 2{puff} Inhale 2 Univers glycopyr-fo 3-20 Puffs in ity of rmoterol 00:00: the [place] ([facility] 00 morning Medical AEROSPHERE) and 2 Branch 160-9-4.8 Puffs in mcg/actuati the on HFAA evening. budesonide- 3-0 Yes [id number] 2{puff} Inhale 2 Univers glycopyr-fo 3-20 Puffs in ity of rmoterol 00:00: the [place] ([facility] 00 morning Medical AEROSPHERE) and 2 Branch 160-9-4.8 Puffs in mcg/actuati the on HFAA evening. budesonide- 3-0 Yes [id number] 2{puff} Inhale 2 Univers glycopyr-fo 3-20 Puffs in ity of rmoterol 00:00: the [place] ([facility] Medical AEROSPHERE) and 2 Branch 160-9-4.8 Puffs in mcg/actuati the on HFAA evening. budesonide- 3-0 Yes [id number] 2{puff} Inhale 2 Univers glycopyr-fo 3-20 Puffs in ity of rmoterol 00:00: the [place] ([facility] morning Medical AEROSPHERE) and 2 Branch 160-9-4.8 Puffs in mcg/actuati the on HFAA evening. budesonide- 3-0 Yes [id number] 2{puff} Inhale 2 Univers glycopyr-fo 3-20 Puffs in ity of rmoterol 00:00: the [place] ([facility] 00 morning Medical AEROSPHERE) and 2 Branch 160-9-4.8 Puffs in mcg/actuati the on HFAA evening. budesonide- 2023-0 Yes [id number] 2{puff} Inhale 2 Univers glycopyr-fo 3-20 Puffs in ity of rmoterol 00:00: the [place] ([facility] 00 [facility] Medical AEROSPHERE) and 2 Branch 160-9-4.8 Puffs in mcg/actuati the on HFAA evening. budesonide- 2023-0 Yes [id number] 2{puff} Inhale 2 Univers glycopyr-fo 3-20 Puffs in ity of rmoterol 00:00: the [place] ([facility] 00 morning Medical AEROSPHERE) and 2 Branch 160-9-4.8 Puffs in mcg/actuati the on HFAA evening. budesonide- 2023-0 Yes [id number] 2{puff} Inhale 2 Univers glycopyr-fo 3-20 Puffs in ity of rmoterol 00:00: the [place] ([facility] 00 morning Medical AEROSPHERE) and 2 Branch 160-9-4.8 Puffs in mcg/actuati the on HFAA evening. budesonide- 2023-0 Yes [id number] 2{puff} Inhale 2 Univers glycopyr-fo 3-20 Puffs in ity of rmoterol 00:00: the [place] ([facility] and 2 Branch 160-9-4.8 Puffs in mcg/actuati the on HFAA evening. budesonide- 2023-0 Yes [id number] 2{puff} Inhale 2 Univers glycopyr-fo 3-20 Puffs in ity of rmoterol 00:00: the [place] ([facility] Medical AEROSPHERE) and 2 Branch 160-9-4.8 Puffs in mcg/actuati the on HFAA evening. budesonide- 3-0 Yes [id number] 2{puff} Inhale 2 Univers glycopyr-fo 3-20 Puffs in ity of rmoterol 00:00: the [place] ([facility] and 2 Branch 160-9-4.8 Puffs in mcg/actuati the on HFAA evening. budesonide- 2023-0 Yes [id number] 2{puff} Inhale 2 Univers glycopyr-fo 3-20 Puffs in ity of rmoterol 00:00: the [place] ([facility] Medical AEROSPHERE) and 2 Branch 160-9-4.8 Puffs in mcg/actuati the on HFAA evening. budesonide- 2023-0 Yes [id number] 2{puff} Inhale 2 Univers glycopyr-fo 3-20 Puffs in ity of rmoterol 00:00: the [place] ([facility] 00 morning Medical AEROSPHERE) and 2 Branch 160-9-4.8 Puffs in mcg/actuati the on HFAA evening. budesonide- 2023-0 Yes [id number] 2{puff} Inhale 2 Univers glycopyr-fo 3-20 Puffs in ity of rmoterol 00:00: the [place] ([facility] 00 morning Medical AEROSPHERE) and 2 Branch 160-9-4.8 Puffs in mcg/actuati the on HFAA evening. budesonide- 2023-0 Yes [id number] 2{puff} Inhale 2 Univers glycopyr-fo 3-20 Puffs in ity of rmoterol 00:00: the [place] ([facility] 00 morning Medical AEROSPHERE) and 2 Branch 160-9-4.8 Puffs in mcg/actuati the on HFAA evening. budesonide- 3-0 Yes [id number] 2{puff} Inhale 2 Univers glycopyr-fo 3-20 Puffs in ity of rmoterol 00:00: the [place] ([facility] 00 morning Medical AEROSPHERE) and 2 Branch 160-9-4.8 Puffs in mcg/actuati the on HFAA evening. budesonide- 3-0 Yes [id number] 2{puff} Inhale 2 Univers glycopyr-fo 3-20 Puffs in ity of rmoterol 00:00: the [place] ([facility] 00 morning Medical AEROSPHERE) and 2 Branch 160-9-4.8 Puffs in mcg/actuati the on HFAA evening. budesonide- 3-0 Yes [id number] 2{puff} Inhale 2 Univers glycopyr-fo 3-20 Puffs in ity of rmoterol 00:00: the [place] ([facility] 00 morning Medical AEROSPHERE) and 2 Branch 160-9-4.8 Puffs in mcg/actuati the on HFAA evening. budesonide- 2023-0 Yes [id number] 2{puff} Inhale 2 Univers glycopyr-fo 3-20 Puffs in ity of rmoterol 00:00: the [place] ([facility] 00 morning Medical AEROSPHERE) and 2 Branch 160-9-4.8 Puffs in mcg/actuati the on HFAA evening. budesonide- 2022-0 Yes [id number] 2{puff} Inhale 2 Univers glycopyr-fo 3-20 Puffs in ity of rmoterol 00:00: the [place] ([facility] 00 morning Medical AEROSPHERE) and 2 Branch 160-9-4.8 Puffs in mcg/actuati the on HFAA evening. budesonide- 2022-0 Yes [id number] 2{puff} Inhale 2 Univers glycopyr-fo 3-20 Puffs in ity of rmoterol 00:00: the [place] ([facility] 00 morning Medical AEROSPHERE) and 2 Branch 160-9-4.8 Puffs in mcg/actuati the on HFAA evening. budesonide- 2022-0 Yes [id number] 2{puff} Inhale 2 Univers glycopyr-fo 3-20 Puffs in ity of rmoterol 00:00: the [place] ([facility] morning Medical AEROSPHERE) and 2 Branch [...] 38 :00 Medical ORAL) Branch esomeprazol Yes [id number] 20mg Take 20 mg Univers e 20 mg 2-28 by mouth ity of capsule 00:00: daily [place] 00 before a Medical meal. Branch esomeprazol 2022-0 Yes [id number] 20mg Take 20 mg Univers e 20 mg 2-28 by mouth ity of capsule 00:00: daily [place] 00 before a Medical meal. Branch esomeprazol 2022-0 Yes [id number] 20mg Take 20 mg Univers e 20 mg 2-28 by mouth ity of capsule 00:00: daily [place] 00 before a Medical meal. Branch esomeprazol 2022-0 Yes [id number] 20mg Take 20 mg Univers e 20 mg 2-28 by mouth ity of capsule 00:00: daily [place] 00 before a Medical meal. Branch esomeprazol 2022-0 Yes [id number] 20mg Take 20 mg Univers e 20 mg 2-28 by mouth ity of capsule 00:00: daily [place] 00 before a Medical meal. Branch esomeprazol 2022-0 Yes [id number] 20mg Take 20 mg Univers e 20 mg 2-28 by mouth ity of capsule 00:00: daily [place] 00 before a Medical meal. Branch esomeprazol 2022-0 Yes [id number] 20mg Take 20 mg Univers e 20 mg 2-28 by mouth ity of capsule 00:00: daily [place] 00 before a Medical meal. Branch esomeprazol 2022-0 Yes [id number] 20mg Take 20 mg Univers e 20 mg 2-28 by mouth ity of capsule 00:00: daily [place] 00 before a Medical meal. Branch esomeprazol 2022-0 Yes [id number] 20mg Take 20 mg Univers e 20 mg 2-28 by mouth ity of capsule 00:00: daily [place] 00 before a Medical meal. Branch esomeprazol 2022-0 Yes [id number] 20mg Take 20 mg Univers e 20 mg 2-28 by mouth ity of capsule 00:00: daily [place] 00 before a Medical meal. Branch esomeprazol 2022-0 Yes [id number] 20mg Take 20 mg Univers e 20 mg 2-28 by mouth ity of capsule 00:00: daily [place] 00 before a Medical meal. Branch esomeprazol 2022-0 Yes [id number] 20mg Take 20 mg Univers e 20 mg 2-28 by mouth ity of capsule 00:00: daily [place] 00 before a Medical meal. Branch esomeprazol 2022- No [id number] 20mg Take 20 mg Univers e 20 mg 09-1524 by mouth ity of capsule 00:00: 00:00 daily [place] 00 :00 before a Medical meal. Branch JOERA 100 0 2023- No 12 ml BID U nivers MG/ML ORAL 08-19 , per mom ity of SOLN 09:36: 00:00 [place] 06 :00 [facility] 100 0 202- No 12 ml BID U nivers MG/ML ORAL 08-19 , per mom ity of SOLN 09:36: 00:00 [place] 06 :00 [facility] 100 2022-0 2022- No 12 ml BID U nivers MG/ML ORAL 08-19 , per mom ity of SOLN 09:36: 00:00 [place] 06 :00 [facility] 100 2022-0 2022- No 12 ml BID U nivers MG/ML ORAL 08-19 , per mom ity of SOLN 09:36: 00:00 [place] 06 :00 [facility] 100 2022-0 2022- No 12 ml BID U nivers MG/ML ORAL 08-19 , per mom ity of SOLN 09:36: 00:00 [place] 06 :00 [facility] 100 2022-0 2022- No 12 ml BID U nivers MG/ML ORAL 08-19 , per mom ity of SOLN 09:36: 00:00 [place] 06 :00 [facility] DIASTAT 0 2022- No 10mg as Univer [...] 5 min DIASTAT 2022- No 10mg as [facility] ACUDIAL 08-19 needed for ity o f 5-7.5-10 MG 09:35: 00:00 [place] RECTAL KIT 50 :00 lasting Medica l greater Branch than 5 min DIASTAT 2022- No 10mg as [facility] ACUDIAL 08-19 needed for ity o f 5-7.5-10 MG 09:35: 00:00 [place] RECTAL KIT 50 :00 lasting Medica l greater Branch than 5 min DIASTAT 2022- No 10mg as [facility] ACUDIAL 08-19 needed for ity o f 5-7.5-10 MG 09:35: 00:00 [place] RECTAL KIT 50 :00 lasting Medica l greater Branch than 5 min DIASTAT 2022- No 10mg as [facility] ACUDIAL 08-19 needed for ity [...] affected ity o f aquaphor 08:59: area(s). [place] (COMPOUNDED 36 Medical ) ointment Branch ARIPiprazol Yes by [facility] e (ABILIFY 08-19 Intramuscu ity of MAINTENA) [...] affected ity o f aquaphor 08:59: area(s). [place] (COMPOUNDED 36 Medical ) ointment Branch ARIPiprazol [...] affected ity o f aquaphor 08:59: area(s). [place] (COMPOUNDED 36 Medical ) ointment Branch ARIPiprazol [...] affected ity o f aquaphor 08:59: area(s). [place] (COMPOUNDED 36 Medical ) ointment Branch ARIPiprazol [...] affected ity o f aquaphor 08:59: area(s). [place] (COMPOUNDED 36 Medical ) ointment Branch ARIPiprazol [...] affected ity o f aquaphor 08:59: area(s). [place] (COMPOUNDED 36 Medical ) ointment Branch ARIPiprazol 0 Yes by Univer s e (ABILIFY 2 [...] affected ity o f aquaphor 08:59: area(s). [place] (COMPOUNDED 36 Medical ) ointment Branch ARIPiprazol [...] affected ity o f aquaphor 08:59: area(s). [place] (COMPOUNDED 36 Medical ) ointment Branch ARIPiprazol [...] affected ity o f aquaphor 08:59: area(s). [place] (COMPOUNDED 36 Medical ) ointment Branch ARIPiprazol [...] affected ity o f aquaphor 08:59: area(s). [place] (COMPOUNDED 36 Medical ) ointment Branch ARIPiprazol 2022-0 Yes by Univer s e (ABILIFY 08-19 Intramuscu ity of MAINTENA) 08:59: lar route [place] as 300 mg sers 36 once every Me dical month. Branch triamcinolo 2022-0 Yes Apply to Un [place] ne 0.1% in 08-19 affected ity o f aquaphor 08:59: area(s). [place] (COMPOUNDED 36 Medical ) ointment Branch ARIPiprazol 2022-0 Yes by Univer s e (ABILIFY 08-19 Intramuscu ity of MAINTENA) 08:59: lar route [place] as 300 mg sers 36 once every Me dical month. Branch triamcinolo 2022-0 Yes Apply to Un [place] 0.1% in 08-19 affected ity o f aquaphor 08:59: area(s). [place] (COMPOUNDED 36 Medical ) ointment Branch ARIPiprazol 2022-0 Yes by Univer s e (ABILIFY 2 Intramuscu ity of MAINTENA) 08:59: lar route [place] as 300 mg sers 36 once every Me dical month. Branch triamcinolo 2022-0 Yes Apply to Un [place] 0.1% in 08-19 affected ity o f aquaphor 08:59: area(s). [place] (COMPOUNDED 36 Medical ) ointment Branch ARIPiprazol 3-0 Yes by Univer s e (ABILIFY 2- Intramuscu ity of MAINTENA) 08:59: lar route [place] as 300 mg sers 36 once every Me dical month. Branch triamcinolo 3-0 Yes Apply to [place] 0.1% in 2- affected ity o f aquaphor 08:59: area(s). [place] ([facility] ) ointment Branch ARIPiprazol 3-0 Yes by Univer s e (ABILIFY 2- Intramuscu ity of [place]) 08:59: lar route [place] as 300 mg sers 36 once every Me dical month. Branch triamcinolo 3-0 Yes Apply to [place] 0.1% in 2- affected ity o f aquaphor 08:59: area(s). [place] ([facility] ) ointment Branch ARIPiprazol 3-0 Yes by Univer s e (ABILIFY 2- Intramuscu ity of [place]) 08:59: lar route [place] as 300 mg sers 36 once every Me dical month. Branch triamcinolo 3-0 Yes Apply to [place] 0.1% in 2- affected ity o f aquaphor 08:59: area(s). [place] ([facility] ) ointment Branch ARIPiprazol 3-0 Yes by Univer [facility] e (ABILIFY 2- Intramuscu ity of [place]) 08:59: lar route [place] as 300 mg sers 36 once every Me dical month. Branch triamcinolo 2023-0 Yes Apply to [place] 0.1% in 2- affected ity o f aquaphor 08:59: area(s). [place] ([facility] ) ointment Branch ARIPiprazol 2023-0 Yes by Univer [facility] e (ABILIFY 2- Intramuscu ity of [place]) 08:59: lar route [place] as 300 mg sers 36 once every Me dical month. Branch triamcinolo 2023-0 Yes Apply to [place] 0.1% in 08-19 affected ity o f aquaphor 08:59: area(s). [place] ([facility] ) ointment Branch ARIPiprazol 2022-0 Yes by Univer [facility] e (ABILIFY 2 Intramuscu ity of [place]) 08:59: lar route [place] as 300 mg sers 36 once every Me dical month. Branch triamcinolo 2022-0 Yes Apply to [place] 0.1% in 08-19 affected ity o f aquaphor 08:59: area(s). [place] ([facility] ) ointment Branch ARIPiprazol 2022-0 Yes by Univer [facility] e (ABILIFY 2 Intramuscu ity of [place]) 08:59: lar route [place] as 300 mg sers 36 once every Me dical month. Branch triamcinolo 2022-0 Yes Apply to [place] 0.1% in 08-19 affected ity o f aquaphor 08:59: area(s). [place] ([facility] ) ointment Branch ARIPiprazol 2022-0 Yes by Univer [facility] e (ABILIFY 2 Intramuscu ity of [place]) 08:59: lar route [place] as 300 mg sers 36 once every Me dical month. Branch triamcinolo 2022-0 Yes Apply to [place] 0.1% in 08-19 affected ity o f aquaphor 08:59: area(s). [place] ([facility] ) ointment Branch ARIPiprazol 2022-0 Yes by [facility] (ABILIFY 2 Intramuscu ity of [facility]) 08:59: lar route [place] 300 mg sers 36 once every Me dical month. Branch triamcinolo 2022-0 Yes Apply to [place] 0.1% in 08-19 affected ity o f aquaphor 08:59: area(s). [place] ([facility] ) ointment Branch ARIPiprazol 2022-0 Yes by [facility] (ABILIFY 2 Intramuscu ity of [place]) 08:59: lar route [place] 300 mg sers 36 once every Me dical month. Branch triamcinolo 3-0 Yes Apply to [place] 0.1% in 08-19 affected ity o f aquaphor 08:59: area(s). [place] ([facility] ) ointment Branch ARIPiprazol 3-0 Yes by [facility] (ABILIFY 2 Intramuscu ity of [place]) 08:59: lar route [place] 300 mg sers 36 once every Me dical month. Branch triamcinolo 3-0 Yes Apply to [place] 0.1% in 08-19 affected ity o f aquaphor 08:59: area(s). [place] ([facility] ) ointment Branch ARIPiprazol 2022-0 Yes by [facility] (ABILIFY 2 Intr[facility] ity of [place]) 08:59: lar route [place] 300 mg sers 36 once every Me dical month. Branch triamcinolo 3-0 Yes Apply to [place] 0.1% in 08-19 affected ity o f aquaphor 08:59: area(s). [place] ([facility] ) ointment Branch ARIPiprazol 2022-0 Yes by [facility] (ABILIFY 2 Intramus[facility] ity of [place]) 08:59: lar route [place] 300 mg sers 36 once every Me dical month. Branch triamcinolo 3-0 Yes Apply to [place] 0.1% in 08-19 affected ity o f aquaphor 08:59: area(s). [place] ([facility] ) ointment Branch ARIPiprazol 3-0 Yes by [facility] (ABILIFY 2 Intr[facility]y of [place]) 08:59: lar route [place] 300 mg sers 36 once every Me dical month. Branch triamcinolo 3-0 Yes Apply to [place] 0.1% in 2- affected ity o f aquaphor 08:59: area(s). [place] ([facility] ) ointment Branch ARIPiprazol 3-0 Yes by [facility] (ABILIFY 2 Intr[facility]y of [facility]) 08:59: lar route [place] 300 mg sers 36 once every Me dical month. Branch triamcinolo 3-0 Yes Apply to [place] 0.1% in 2- affected ity o f aquaphor 08:59: area(s). [place] ([facility] ) ointment Branch ARIPiprazol 3-0 Yes by [facility] (ABILIFY 08-19 [facility]y of [facility]) 08:59: lar route [place] 300 mg sers 36 once every Me dical month. Branch triamcinolo 3-0 Yes Apply to [place] 0.1% in 08-19 affected ity o f aquaphor 08:59: area(s). [place] ([facility] ) ointment Branch ARIPiprazol 3-0 Yes by [facility] (ABILIFY 08-19 [facility]y of [facility]) 08:59: lar route [place] 300 mg sers 36 once every Me dical month. Branch triamcinolo 3-0 Yes Apply to [place] 0.1% in 08-19 affected ity o f aquaphor 08:59: area(s). [place] ([facility] ) ointment Branch ARIPiprazol 3-0 Yes by [facility] (ABILIFY 08-19 Intr[facility]y of [facility]) 08:59: lar route [place] 300 mg sers 36 once every Me dical month. Branch triamcinolo 3-0 Yes Apply to [place] 0.1% in 08-19 affected ity o f aquaphor 08:59: area(s). [place] ([facility] ) ointment Branch ARIPiprazol 3-0 Yes by [facility] (ABILIFY 08-19 Intr[facility]y of [facility]) 08:59: lar route [place] [facility] 300 mg sers 36 once every Me dical month. Branch triamcinolo 2023-0 Yes Apply to [place] 0.1% in 2- affected ity o f aquaphor 08:59: area(s). [place] ([facility] ) ointment Branch ARIPiprazol 2023-0 Yes by [facility] (ABILIFY 2 Intramus[facility] ity of [facility]) 08:59: lar route [place] 300 mg sers 36 once every Me dical month. Branch triamcinolo 3-0 Yes Apply to [place] 0.1% in 2- affected ity o f aquaphor 08:59: area(s). [place] ([facility] ) ointment Branch ARIPiprazol 3-0 Yes by [facility] (ABILIFY 2 Intramuscu ity of [facility]) 08:59: lar route [place] 300 mg sers 36 once every Me dical month. Branch triamcinolo 3-0 Yes Apply to [place] 0.1% in 08-19 affected ity o f aquaphor 08:59: area(s). [place] ([facility] ) ointment Branch ARIPiprazol 3-0 Yes by [facility] (ABILIFY 08-19 Intr[facility]y of [facility]) 08:59: lar route [place] 300 mg sers 36 once every Me dical month. Branch triamcinolo 3-0 Yes Apply to [place] 0.1% in 08-19 affected ity o f aquaphor 08:59: area(s). [place] ([facility] ) ointment Branch ARIPiprazol 3-0 Yes by [facility] (ABILIFY 08-19 Intramus[facility] ity of [facility]) 08:59: lar route [place] 300 mg sers 36 once every Me dical month. Branch triamcinolo 3-0 Yes Apply to [place] 0.1% in 2- affected ity o f aquaphor 08:59: area(s). [place] ([facility] ) ointment Branch ARIPiprazol 3-0 Yes by [facility] (ABILIFY 2 Intramus[facility]y of [facility]) 08:59: lar route [place] 300 mg sers 36 once every Me dical month. Branch triamcinolo 2023-0 Yes Apply to [place] 0.1% in 2- affected ity o f aquaphor 08:59: area(s). [place] ([facility] ) ointment Branch ARIPiprazol [...] Me dical month. Branch SUMAtriptan 2022-0 Yes [id number] 20mg Use 1 [facility] 20 2-01 [place] in 1 ity of mg/actuatio 00:00: nostril as [place] n nasal 00 needed Medical spray (migraine) Branch . midazolam 2022-0 Yes [id number] 5mg Use 5 mg [facility] (NAYZILAM) 2-01 in each ity of 5 mg/spray 00:00: nostril as [place] (0.1 mL) 00 needed Medical [place] (seizure). Branch levETIRAcet 2022-0 Yes [id number] 1000mg Take 10 mL [facility] am (KEPPRA) 2-01 by mouth ity of 100 mg/mL 00:00: in the [place] oral 00 morning Medical solution and 10 mL Branch in the evening. SUMAtriptan 2022-0 Yes [id number] 20mg Use 1 [facility] 20 2-01 [place] in 1 ity of mg/actuatio 00:00: nostril as [place] n nasal 00 needed Medical spray (migraine) Branch . midazolam 2022-0 Yes [id number] 5mg Use 5 mg [facility] (NAYZILAM) 2-01 in each ity of 5 mg/spray 00:00: nostril as [place] (0.1 mL) 00 needed Medical [place] (seizure). Branch levETIRAcet 2022-0 Yes [id number] 1000mg Take 10 mL [facility] am (KEPPRA) 2-01 by mouth ity of 100 mg/mL 00:00: in the [place] oral 00 morning Medical solution and 10 mL Branch in the evening. SUMAtriptan 2022-0 Yes [id number] 20mg Use 1 [facility] 20 2-01 [place] [facility] 1 ity of mg/actuatio 00:00: nostril as [place] n nasal 00 needed Medical spray (migraine) Branch . midazolam 2022-0 Yes [id number] 5mg Use 5 mg [facility] (NAYZILAM) 2-01 in each ity of 5 mg/spray 00:00: nostril as [place] (0.1 mL) 00 needed Medical [place] (seizure). Branch levETIRAcet 2022-0 Yes [id number] 1000mg Take 10 mL [facility] am (KEPPRA) 2-01 by mouth ity of 100 mg/mL 00:00: in the [place] oral 00 morning Medical solution and 10 mL Branch in the evening. SUMAtriptan 2022-0 Yes [id number] 20mg Use 1 [facility] 20 2-01 [place] in 1 ity of mg/actuatio 00:00: nostril as [place] n nasal 00 needed Medical spray (migraine) Branch . midazolam 2022-0 Yes [id number] 5mg Use 5 mg [facility] (NAYZILAM) 2-01 in each ity of 5 mg/spray 00:00: nostril as [place] (0.1 mL) 00 needed Medical [place] (seizure). Branch levETIRAcet 2022-0 Yes [id number] 1000mg Take 10 mL [facility] am (KEPPRA) 2-01 by mouth ity of 100 mg/mL 00:00: in the [place] oral 00 morning Medical solution and 10 mL Branch in the evening. SUMAtriptan 2022-0 Yes [id number] 20mg Use 1 [facility] 20 2-01 [place] [facility] 1 ity of mg/actuatio 00:00: nostril as [place] n nasal 00 needed Medical spray (migraine) Branch . midazolam 2022-0 Yes [id number] 5mg Use 5 mg [facility] (NAYZILAM) 2-01 in each ity of 5 mg/spray 00:00: nostril as [place] (0.1 mL) 00 needed Medical [place] (seizure). Branch levETIRAcet 0 Yes [id number] 1000mg Take 10 mL [facility] am (KEPPRA) 2-01 by mouth ity of 100 mg/mL 00:00: in the [place] oral 00 morning Medical solution and 10 mL Branch in the evening. SUMAtriptan 2022-0 Yes [id number] 20mg Use 1 [facility] 20 2-01 [place] [facility] 1 ity of mg/actuatio 00:00: nostril as [place] n nasal 00 needed Medical spray (migraine) Branch . midazolam 2022-0 Yes [id number] 5mg Use 5 mg [facility] (NAYZILAM) 2-01 in each ity of 5 mg/spray 00:00: nostril as [place] (0.1 mL) 00 needed Medical [place] (seizure). Branch levETIRAcet 2022-0 Yes [id number] 1000mg Take 10 mL [facility] am (KEPPRA) 2-01 by mouth ity of 100 mg/mL 00:00: in the [place] oral 00 morning Medical solution and 10 mL Branch in the evening. SUMAtriptan 2022-0 Yes [id number] 20mg Use 1 [facility] 20 2-01 [place] in 1 ity of mg/actuatio 00:00: nostril as [place] n nasal 00 needed Medical spray (migraine) Branch . midazolam 2022-0 Yes [id number] 5mg Use 5 mg [facility] (NAYZILAM) 2-01 in each ity of 5 mg/spray 00:00: nostril as [place] (0.1 mL) 00 needed Medical [place] (seizure). Branch levETIRAcet 0 Yes [id number] 1000mg Take 10 mL [facility] am (KEPPRA) 2-01 by mouth ity of 100 mg/mL 00:00: in the [place] oral 00 morning Medical solution and 10 mL Branch in the evening. SUMAtriptan 2022-0 Yes [id number] 20mg Use 1 [facility] 20 2-01 [place] [facility] 1 ity of mg/actuatio 00:00: nostril as [place] n nasal 00 needed Medical spray (migraine) Branch . midazolam 2022-0 Yes [id number] 5mg Use 5 mg [facility] (NAYZILAM) 2-01 in each ity of 5 mg/spray 00:00: nostril as [place] (0.1 mL) 00 needed Medical [place] (seizure). Branch levETIRAcet 0 Yes [id number] 1000mg Take 10 mL [facility] am (KEPPRA) 2-01 by mouth ity of 100 mg/mL 00:00: in the [place] oral 00 morning Medical solution and 10 mL Branch in the evening. SUMAtriptan 2022-0 Yes [id number] 20mg Use 1 [facility] 20 2-01 [place] in 1 ity of mg/actuatio 00:00: nostril as [place] n nasal 00 needed Medical spray (migraine) Branch . midazolam 2022-0 Yes [id number] 5mg Use 5 mg [facility] (NAYZILAM) 2-01 in each ity of 5 mg/spray 00:00: nostril as [place] (0.1 mL) 00 needed Medical [place] (seizure). Branch levETIRAcet 0 Yes [id number] 1000mg Take 10 mL [facility] am (KEPPRA) 2-01 by mouth ity of 100 mg/mL 00:00: in the [place] oral 00 morning Medical solution and 10 mL Branch in the evening. SUMAtriptan 2022-0 Yes [id number] 20mg Use 1 [facility] 20 2-01 [place] in 1 ity of mg/actuatio 00:00: nostril as [place] n nasal 00 needed Medical spray (migraine) Branch . midazolam 2022-0 Yes [id number] 5mg Use 5 mg [facility] (NAYZILAM) 2-01 in each ity of 5 mg/spray 00:00: nostril as [place] (0.1 mL) 00 needed Medical [place] (seizure). Branch levETIRAcet 2022-0 Yes [id number] 1000mg Take 10 mL [facility] am (KEPPRA) 2-01 by mouth ity of 100 mg/mL 00:00: in the [place] oral 00 morning Medical solution and 10 mL Branch in the evening. SUMAtriptan 2022-0 Yes [id number] 20mg Use 1 [facility] 20 2-01 [place] in 1 ity of mg/actuatio 00:00: nostril as [place] n nasal 00 needed Medical spray (migraine) Branch . midazolam 2022-0 Yes [id number] 5mg Use 5 mg [facility] (NAYZILAM) 2-01 in each ity of 5 mg/spray 00:00: nostril as [place] (0.1 mL) 00 needed Medical [place] (seizure). Branch levETIRAcet 2022-0 Yes [id number] 1000mg Take 10 mL [facility] am (KEPPRA) 2-01 by mouth ity of 100 mg/mL 00:00: in the [place] oral 00 morning Medical solution and 10 mL Branch in the evening. SUMAtriptan 2022-0 Yes [id number] 20mg Use 1 [facility] 20 2-01 [place] in 1 ity of mg/actuatio 00:00: nostril as [place] n nasal 00 needed Medical spray (migraine) Branch . midazolam 2022-0 Yes [id number] 5mg Use 5 mg [facility] (NAYZILAM) 2-01 in each ity of 5 mg/spray 00:00: nostril as [place] (0.1 mL) 00 needed Medical [place] (seizure). Branch levETIRAcet 2022-0 Yes [id number] 1000mg Take 10 mL [facility] am (KEPPRA) 2-01 by mouth ity of 100 mg/mL 00:00: in the [place] oral 00 morning Medical solution and 10 mL Branch in the evening. SUMAtriptan 2022-0 Yes [id number] 20mg Use 1 [facility] 20 2-01 [place] in 1 ity of mg/actuatio 00:00: nostril as [place] n nasal 00 needed Medical spray (migraine) Branch . midazolam 2022-0 Yes [id number] 5mg Use 5 mg [facility] (NAYZILAM) 2-01 in each ity of 5 mg/spray 00:00: nostril as [place] (0.1 mL) 00 needed Medical [place] (seizure). Branch levETIRAcet 2022-0 Yes [id number] 1000mg Take 10 mL [facility] am (KEPPRA) 2-01 by mouth ity of 100 mg/mL 00:00: in the [place] oral 00 morning Medical solution and 10 mL Branch in the evening. SUMAtriptan 2022-0 Yes [id number] 20mg Use 1 [facility] 20 2-01 [place] in 1 ity of mg/actuatio 00:00: nostril as [place] n nasal 00 needed Medical spray (migraine) Branch . midazolam 2022-0 Yes [id number] 5mg Use 5 mg [facility] (NAYZILAM) 2-01 in each ity of 5 mg/spray 00:00: nostril as [place] (0.1 mL) 00 needed Medical [place] (seizure). Branch levETIRAcet 2022-0 Yes [id number] 1000mg Take 10 mL [facility] am (KEPPRA) 2-01 by mouth ity of 100 mg/mL 00:00: in the [place] oral 00 morning Medical solution and 10 mL Branch in the evening. SUMAtriptan 2022-0 Yes [id number] 20mg Use 1 [facility] 20 2-01 [place] in 1 ity of mg/actuatio 00:00: nostril as [place] n nasal 00 needed Medical spray (migraine) Branch . midazolam 2022-0 Yes [id number] 5mg Use 5 mg [facility] (NAYZILAM) 2-01 in each ity of 5 mg/spray 00:00: nostril as [place] (0.1 mL) 00 needed Medical [place] (seizure). Branch levETIRAcet 2023-0 Yes [id number] 1000mg Take 10 mL [facility] am (KEPPRA) 2-01 by mouth ity of 100 mg/mL 00:00: in the [place] oral 00 morning Medical solution and 10 mL Branch in the evening. SUMAtriptan 2022-0 Yes [id number] 20mg Use 1 [facility] 20 2-01 [place] in 1 ity of mg/actuatio 00:00: nostril as [place] n nasal 00 needed Medical spray (migraine) Branch . midazolam 2022-0 Yes [id number] 5mg Use 5 mg [facility] (NAYZILAM) 2-01 in each ity of 5 mg/spray 00:00: nostril as [place] (0.1 mL) 00 needed Medical [place] (seizure). Branch levETIRAcet 0 Yes [id number] 1000mg Take 10 mL [facility] am (KEPPRA) 2-01 by mouth ity of 100 mg/mL 00:00: in the [place] oral 00 morning Medical solution and 10 mL Branch in the evening. SUMAtriptan 2022-0 Yes [id number] 20mg Use 1 [facility] 20 2-01 [place] in 1 ity of mg/actuatio 00:00: nostril as [place] n nasal 00 needed Medical spray (migraine) Branch . midazolam 2022-0 Yes [id number] 5mg Use 5 mg [facility] (NAYZILAM) 2-01 in each ity of 5 mg/spray 00:00: nostril as [place] (0.1 mL) 00 needed Medical [place] (seizure). Branch levETIRAcet 0 Yes [id number] 1000mg Take 10 mL [facility] am (KEPPRA) 2-01 by mouth ity of 100 mg/mL 00:00: in the [place] oral 00 morning Medical solution and 10 mL Branch in the evening. SUMAtriptan 2022-0 Yes [id number] 20mg Use 1 [facility] 20 2-01 [place] in 1 ity of mg/actuatio 00:00: nostril as [place] n nasal 00 needed Medical spray (migraine) Branch . midazolam 2022-0 Yes [id number] 5mg Use 5 mg [facility] (NAYZILAM) 2-01 in each ity of 5 mg/spray 00:00: nostril as [place] (0.1 mL) 00 needed Medical [place] (seizure). Branch levETIRAcet 2022-0 Yes [id number] 1000mg Take 10 mL [facility] am (KEPPRA) 2-01 by mouth ity of 100 mg/mL 00:00: in the [place] oral 00 morning Medical solution and 10 mL Branch in the evening. SUMAtriptan 2022-0 Yes [id number] 20mg Use 1 [facility] 20 2-01 [place] in 1 ity of mg/actuatio 00:00: nostril as [place] n nasal 00 needed Medical spray (migraine) Branch . midazolam 2022-0 Yes [id number] 5mg Use 5 mg [facility] (NAYZILAM) 2-01 in each ity of 5 mg/spray 00:00: nostril as [place] (0.1 mL) 00 needed Medical [place] (seizure). Branch levETIRAcet 0 Yes [id number] 1000mg Take 10 mL [facility] am (KEPPRA) 2-01 by mouth ity of 100 mg/mL 00:00: in the [place] oral 00 morning Medical solution and 10 mL Branch in the evening. SUMAtriptan 2022-0 Yes [id number] 20mg Use 1 [facility] 20 2-01 [place] in 1 ity of mg/actuatio 00:00: nostril as [place] n nasal 00 needed Medical spray (migraine) Branch . midazolam 2022-0 Yes [id number] 5mg Use 5 mg [facility] (NAYZILAM) 2-01 in each ity of 5 mg/spray 00:00: nostril as [place] (0.1 mL) 00 needed Medical [place] (seizure). Branch levETIRAcet 2022-0 Yes [id number] 1000mg Take 10 mL [facility] am (KEPPRA) 2-01 by mouth ity of 100 mg/mL 00:00: in the [place] oral 00 morning Medical solution and 10 mL Branch in the evening. SUMAtriptan 2022-0 Yes [id number] 20mg Use 1 [facility] 20 2-01 [place] in 1 ity of mg/actuatio 00:00: nostril as [place] n nasal 00 needed Medical spray (migraine) Branch . midazolam 2022-0 Yes [id number] 5mg Use 5 mg [facility] (NAYZILAM) 2-01 in each ity of 5 mg/spray 00:00: nostril as [place] (0.1 mL) 00 needed Medical [place] (seizure). Branch levETIRAcet 2022-0 Yes [id number] 1000mg Take 10 mL [facility] am (KEPPRA) 2-01 by mouth ity of 100 mg/mL 00:00: in the [place] oral 00 morning Medical solution and 10 mL Branch in the evening. SUMAtriptan 2022-0 Yes [id number] 20mg Use 1 [facility] 20 2-01 [place] in 1 ity of mg/actuatio 00:00: nostril as [place] n nasal 00 needed Medical spray (migraine) Branch . midazolam 2022-0 Yes [id number] 5mg Use 5 mg [facility] (NAYZILAM) 2-01 in each ity of 5 mg/spray 00:00: nostril as [place] (0.1 mL) 00 needed Medical [place] (seizure). Branch levETIRAcet 2022-0 Yes [id number] 1000mg Take 10 mL [facility] am (KEPPRA) 2-01 by mouth ity of 100 mg/mL 00:00: in the [place] oral 00 morning Medical solution and 10 mL Branch in the evening. SUMAtriptan 2022-0 Yes [id number] 20mg Use 1 [facility] 20 2-01 [place] in 1 ity of mg/actuatio 00:00: nostril as [place] n nasal 00 needed Medical spray (migraine) Branch . midazolam 2022-0 Yes [id number] 5mg Use 5 mg [facility] (NAYZILAM) 2-01 in each ity of 5 mg/spray 00:00: nostril as [place] (0.1 mL) 00 needed Medical [place] (seizure). Branch levETIRAcet 2022-0 Yes [id number] 1000mg Take 10 mL [facility] am (KEPPRA) 2-01 by mouth ity of 100 mg/mL 00:00: in the [place] oral 00 morning Medical solution and 10 mL Branch in the evening. SUMAtriptan 2022-0 Yes [id number] 20mg Use 1 [facility] 20 2-01 [place] in 1 ity of mg/actuatio 00:00: nostril as [place] n nasal 00 needed Medical spray (migraine) Branch . midazolam 3-0 Yes [id number] 5mg Use 5 mg [facility] (NAYZILAM) 2-01 in each ity of 5 mg/spray 00:00: nostril as [place] (0.1 mL) 00 needed Medical [place] (seizure). Branch levETIRAcet 2022-0 Yes [id number] 1000mg Take 10 mL [facility] am (KEPPRA) 2-01 by mouth ity of 100 mg/mL 00:00: in the [place] oral 00 morning Medical solution and 10 mL Branch in the evening. SUMAtriptan 2022-0 Yes [id number] 20mg Use 1 [facility] 20 2-01 [place] in 1 ity of mg/actuatio 00:00: nostril as [place] n nasal 00 needed Medical spray (migraine) Branch . midazolam 2022-0 Yes [id number] 5mg Use 5 mg [facility] (NAYZILAM) 2-01 in each ity of 5 mg/spray 00:00: nostril as [place] (0.1 mL) 00 needed Medical [facility] (seizure). Branch levETIRAcet 2022-0 Yes [id number] 1000mg Take 10 mL [facility] am (KEPPRA) 2-01 by mouth ity of 100 mg/mL 00:00: in the [place] oral 00 morning Medical solution and 10 mL Branch in the evening. SUMAtriptan 2022-0 Yes [id number] 20mg Use 1 [facility] 20 2-01 [place] in 1 ity of mg/actuatio 00:00: nostril as [place] n nasal 00 needed Medical spray (migraine) Branch . midazolam 2022-0 Yes [id number] 5mg Use 5 mg [facility] (NAYZILAM) 2-01 in each ity of 5 mg/spray 00:00: nostril as [place] (0.1 mL) 00 needed Medical [facility] (seizure). Branch levETIRAcet 2022-0 Yes [id number] 1000mg Take 10 mL [facility] am (KEPPRA) 2-01 by mouth ity of 100 mg/mL 00:00: in the [place] oral 00 morning Medical solution and 10 mL Branch in the evening. SUMAtriptan 2022-0 Yes [id number] 20mg Use 1 [facility] 20 2-01 [place] in 1 ity of mg/actuatio 00:00: nostril as [place] n nasal 00 needed Medical spray (migraine) Branch . midazolam 3-0 Yes [id number] 5mg Use 5 mg [facility] (NAYZILAM) 2-01 in each ity of 5 mg/spray 00:00: nostril as [place] (0.1 mL) 00 needed Medical [facility] (seizure). Branch levETIRAcet 2022-0 Yes [id number] 1000mg Take 10 mL [facility] am (KEPPRA) 2-01 by mouth ity of 100 mg/mL 00:00: in the [place] oral 00 morning Medical solution and 10 mL Branch in the evening. SUMAtriptan 2022-0 Yes [id number] 20mg Use 1 [facility] 20 2-01 [place] in 1 ity of mg/actuatio 00:00: nostril as [place] n nasal 00 needed Medical spray (migraine) Branch . midazolam 2022-0 Yes [id number] 5mg Use 5 mg [facility] (NAYZILAM) 2-01 in each ity of 5 mg/spray 00:00: nostril as [place] (0.1 mL) 00 needed Medical [facility] (seizure). Branch levETIRAcet 2022-0 Yes [id number] 1000mg Take 10 mL [facility] am (KEPPRA) 2-01 by mouth ity of 100 mg/mL 00:00: in the [place] oral 00 morning Medical solution and 10 mL Branch in the evening. SUMAtriptan 2022-0 Yes [id number] 20mg Use 1 [facility] 20 2-01 [place] in 1 ity of mg/actuatio 00:00: nostril as [place] n nasal 00 needed Medical spray (migraine) Branch . midazolam 2022-0 Yes [id number] 5mg Use 5 mg [facility] (NAYZILAM) 2-01 in each ity of 5 mg/spray 00:00: nostril as [place] (0.1 mL) 00 needed Medical [facility] (seizure). Branch levETIRAcet 2022-0 Yes [id number] 1000mg Take 10 mL [facility] am (KEPPRA) 2-01 by mouth ity of 100 mg/mL 00:00: in the [place] oral 00 morning Medical solution and 10 mL Branch in the evening. SUMAtriptan 2022-0 Yes [id number] 20mg Use 1 [facility] 20 2-01 [place] in 1 ity of mg/actuatio 00:00: nostril as [place] n nasal 00 needed Medical spray (migraine) Branch . midazolam 2023-0 Yes [id number] 5mg Use 5 mg [facility] (NAYZILAM) 2-01 in each ity of 5 mg/spray 00:00: nostril as [place] (0.1 mL) 00 needed Medical [facility] (seizure). Branch levETIRAcet 2022-0 Yes [id number] 1000mg Take 10 mL [facility] am (KEPPRA) 2-01 by mouth ity of 100 mg/mL 00:00: in the [place] oral 00 morning Medical solution and 10 mL Branch in the evening. SUMAtriptan 2022-0 Yes [id number] 20mg Use 1 [facility] 20 2-01 [place] in 1 ity of mg/actuatio 00:00: nostril as [place] n nasal 00 needed Medical spray (migraine) Branch . midazolam 2022-0 Yes [id number] 5mg Use 5 mg [facility] (NAYZILAM) 2-01 in each ity of 5 mg/spray 00:00: nostril as [place] (0.1 mL) 00 needed Medical [facility] (seizure). Branch levETIRAcet 2022-0 Yes [id number] 1000mg Take 10 mL [facility] am (KEPPRA) 2-01 by mouth ity of 100 mg/mL 00:00: in the [place] oral 00 morning Medical solution and 10 mL Branch in the evening. SUMAtriptan 2022-0 Yes [id number] 20mg Use 1 [facility] 20 2-01 [place] in 1 ity of mg/actuatio 00:00: nostril as [place] n nasal 00 needed Medical spray (migraine) Branch . midazolam 2022-0 Yes [id number] 5mg Use 5 mg [facility] (NAYZILAM) 2-01 in each ity of 5 mg/spray 00:00: nostril as [place] (0.1 mL) 00 needed Medical [facility] (seizure). Branch levETIRAcet 2022-0 Yes [id number] 1000mg Take 10 mL [facility] am (KEPPRA) 2-01 by mouth ity of 100 mg/mL 00:00: in the [place] oral 00 morning Medical solution and 10 mL Branch in the evening. SUMAtriptan 2022-0 Yes [id number] 20mg Use 1 [facility] 20 2-01 [place] in 1 ity of mg/actuatio 00:00: nostril as [place] n nasal 00 needed Medical spray (migraine) Branch . midazolam 2022-0 Yes [id number] 5mg Use 5 mg [facility] (NAYZILAM) 2-01 in each ity of 5 mg/spray 00:00: nostril as [place] (0.1 mL) 00 needed Medical [facility] (seizure). Branch levETIRAcet 2022-0 Yes [id number] 1000mg Take 10 mL [facility] am (KEPPRA) 2-01 by mouth ity of 100 mg/mL 00:00: in the [place] oral 00 morning Medical solution and 10 mL Branch in the evening. SUMAtriptan 2022-0 Yes [id number] 20mg Use 1 [facility] 20 2-01 [place] in 1 ity of mg/actuatio 00:00: nostril as [place] n nasal 00 needed Medical spray (migraine) Branch . midazolam 2022-0 Yes [id number] 5mg Use 5 mg [facility] (NAYZILAM) 2-01 in each ity of 5 mg/spray 00:00: nostril as [place] (0.1 mL) 00 needed Medical [facility] (seizure). Branch levETIRAcet 0 Yes [id number] 1000mg Take 10 mL [facility] am (KEPPRA) 2-01 by mouth ity of 100 mg/mL 00:00: in the [place] oral 00 morning Medical solution and 10 mL Branch in the evening. SUMAtriptan 2022-0 Yes [id number] 20mg Use 1 [facility] 20 2-01 [place] in 1 ity of mg/actuatio 00:00: nostril as [place] n nasal 00 needed Medical spray (migraine) Branch . midazolam 2022-0 Yes [id number] 5mg Use 5 mg [facility] (NAYZILAM) 2-01 in each ity of 5 mg/spray 00:00: nostril as [place] (0.1 mL) 00 needed Medical [facility] (seizure). Branch levETIRAcet 2022-0 Yes [id number] 1000mg Take 10 mL [facility] am (KEPPRA) 2-01 by mouth ity of 100 mg/mL 00:00: in the [place] oral 00 morning Medical solution and 10 mL Branch in the evening. SUMAtriptan 2022-0 Yes [id number] 20mg Use 1 [facility] 20 2-01 [place] in 1 ity of mg/actuatio 00:00: nostril as [place] n nasal 00 needed Medical spray (migraine) Branch . midazolam 2022-0 Yes [id number] 5mg Use 5 mg [facility] (NAYZILAM) 2-01 in each ity of 5 mg/spray 00:00: nostril as [place] (0.1 mL) 00 needed Medical [facility] (seizure). Branch levETIRAcet 2022-0 Yes [id number] 1000mg Take 10 mL [facility] am (KEPPRA) 2-01 by mouth ity of 100 mg/mL 00:00: in the [place] oral 00 morning Medical solution and 10 mL Branch in the evening. SUMAtriptan 2022-0 Yes [id number] 20mg Use 1 [facility] 20 2-01 [place] in 1 ity of mg/actuatio 00:00: nostril as [place] n nasal 00 needed Medical spray (migraine) Branch . midazolam 2022-0 Yes [id number] 5mg Use 5 mg [facility] ([facility]IL[facility]) 2-01 in each ity of 5 mg/spray 00:00: nostril [place] (0.1 mL) 00 needed [facility] (seizure). Branch levETIRAcet 2022-0 Yes [id number] 1000mg Take 10 mL [facility] (KEPPRA) 2-01 by mouth ity of 100 mg/mL 00:00: in the [place] oral 00 morning Medical solution and 10 mL Branch in the evening. SUMAtriptan 2022-0 Yes [id number] 20mg Use 1 [facility] 20 2-01 [place] in 1 ity of mg/actuatio 00:00: nostril as [place] n nasal 00 needed Medical spray (migraine) Branch . midazolam 2022-0 Yes [id number] 5mg Use 5 mg [facility] ([facility]) 2-01 in each ity of 5 mg/spray 00:00: nostril as [place] (0.1 mL) 00 needed [facility] (seizure). Branch levETIRAcet 2022-0 Yes [id number] 1000mg Take 10 mL [facility] (KEPPRA) 2-01 by mouth ity of 100 mg/mL 00:00: in the [place] oral 00 morning Medical solution and 10 mL Branch in the evening. SUMAtriptan 2022-0 Yes [id number] 20mg Use 1 [facility] 20 2-01 [place] [facility] 1 ity of mg/actuatio 00:00: nostril as [place] n nasal 00 needed Medical spray (migraine) Branch . midazolam 2022-0 Yes [id number] 5mg Use 5 mg [facility] ([facility]) 2-01 in each ity of 5 mg/spray 00:00: nostril as [place] (0.1 mL) 00 needed [facility] (seizure). Branch levETIRAcet 2022-0 Yes [id number] 1000mg Take 10 mL [facility] (KEPPRA) 2-01 by mouth ity of 100 mg/mL 00:00: in the [place] oral 00 morning Medical solution and 10 mL Branch in the evening. SUMAtriptan 2022-0 Yes [id number] 20mg Use 1 [facility] 20 2-01 [place] [facility] 1 ity of mg/actuatio 00:00: nostril as [place] n nasal 00 needed Medical spray (migraine) Branch . midazolam 2022-0 Yes [id number] 5mg Use 5 mg [facility] ([facility]) 2-01 in each ity of 5 mg/spray 00:00: nostril as [place] (0.1 mL) 00 needed [facility] (seizure). Branch levETIRAcet 2022-0 Yes [id number] 1000mg Take 10 mL [facility] (KEPPRA) 2-01 by mouth ity of 100 mg/mL 00:00: in the [place] oral 00 morning Medical solution and 10 mL Branch in the evening. SUMAtriptan 2022-0 Yes [id number] 20mg Use 1 [facility] 20 2-01 [place] [facility] 1 ity of mg/actuatio 00:00: nostril as [place] n nasal 00 needed Medical spray (migraine) Branch . midazolam 2022-0 Yes [id number] 5mg Use 5 mg [facility] ([facility]) 2-01 in each ity of 5 mg/spray 00:00: nostril as [place] (0.1 mL) 00 needed [facility] (seizure). Branch levETIRAcet 2022-0 Yes [id number] 1000mg Take 10 mL [facility] (KEPPRA) 2-01 by mouth ity of 100 mg/mL 00:00: in the [place] oral 00 morning Medical solution and 10 mL Branch in the evening. SUMAtriptan 2022-0 Yes [id number] 20mg Use 1 [facility] 20 2-01 [place] [facility] 1 ity of mg/actuatio 00:00: nostril as [place] n nasal 00 needed Medical spray (migraine) Branch . midazolam 2022-0 Yes [id number] 5mg Use 5 mg [facility] ([facility]) 2-01 in each ity of 5 mg/spray 00:00: nostril as [place] (0.1 mL) 00 needed [facility] (seizure). Branch levETIRAcet 2022-0 Yes [id number] 1000mg Take 10 mL [facility] (KEPPRA) 2-01 by mouth ity of 100 mg/mL 00:00: in the [place] oral 00 morning Medical solution and 10 mL Branch in the evening. SUMAtriptan 2022-0 Yes [id number] 20mg Use 1 [facility] 20 2-01 [place] [facility] 1 ity of mg/actuatio 00:00: nostril as [place] n nasal 00 needed Medical spray (migraine) Branch . midazolam 2022-0 Yes [id number] 5mg Use 5 mg [facility] ([facility]) 2-01 in each ity of 5 mg/spray 00:00: nostril as [place] (0.1 mL) 00 needed [facility] (seizure). Branch levETIRAcet 2022-0 Yes [id number] 1000mg Take 10 mL [facility] (KEPPRA) 2-01 by mouth ity of 100 mg/mL 00:00: in the [place] oral 00 morning Medical solution and 10 mL Branch in the evening. SUMAtriptan 2022-0 Yes [id number] 20mg Use 1 [facility] 20 2-01 [place] in 1 ity of mg/actuatio 00:00: nostril as [place] n nasal 00 needed Medical spray (migraine) Branch . midazolam 2022-0 Yes [id number] 5mg Use 5 mg [facility] ([facility]IL[facility]) 2-01 in each ity of 5 mg/spray 00:00: nostril as [place] (0.1 mL) 00 needed [facility] (seizure). Branch levETIRAcet 2022-0 Yes [id number] 1000mg Take 10 mL [facility] (KEPPRA) 2-01 by mouth ity of 100 mg/mL 00:00: in the [place] oral 00 morning Medical solution and 10 mL Branch in the evening. SUMAtriptan 2022-0 Yes [id number] 20mg Use 1 [facility] 20 2-01 [place] in 1 ity of mg/actuatio 00:00: nostril as [place] n nasal 00 needed Medical spray (migraine) Branch . midazolam 2022-0 Yes [id number] 5mg Use 5 mg [facility] ([facility]IL[facility]) 2-01 in each ity of 5 mg/spray 00:00: nostril as [place] (0.1 mL) 00 needed [facility] (seizure). Branch levETIRAcet 0 Yes [id number] 1000mg Take 10 mL [facility] (KEPPRA) 2-01 by mouth ity of 100 mg/mL 00:00: in the [place] oral 00 morning Medical solution and 10 mL Branch in the evening. SUMAtriptan 2022-0 Yes [id number] 20mg Use 1 [facility] 20 2-01 [place] in 1 ity of mg/actuatio 00:00: nostril as [place] n nasal 00 needed Medical spray (migraine) Branch . midazolam 2022-0 Yes [id number] 5mg Use 5 mg [facility] ([facility]IL[facility]) 2-01 in each ity of 5 mg/spray 00:00: nostril as [place] (0.1 mL) 00 needed [facility] (seizure). Branch levETIRAcet 0 Yes [id number] 1000mg Take 10 mL [facility] (KEPPRA) 2-01 by mouth ity of 100 mg/mL 00:00: in the [place] oral 00 morning Medical solution and 10 mL Branch in the evening. SUMAtriptan 2022-0 Yes [id number] 20mg Use 1 [facility] 20 2-01 [place] in 1 ity of mg/actuatio 00:00: nostril as [place] n nasal 00 needed Medical spray (migraine) Branch . midazolam 2022-0 Yes [id number] 5mg Use 5 mg [facility] ([facility]IL[facility]) 2-01 in each ity of 5 mg/spray 00:00: nostril as [place] (0.1 mL) 00 needed [facility] (seizure). Branch levETIRAcet 0 Yes [id number] 1000mg Take 10 mL [facility] (KEPPRA) 2-01 by mouth ity of 100 mg/mL 00:00: in the [place] oral 00 morning Medical solution and 10 mL Branch in the evening. SUMAtriptan 2022-0 Yes [id number] 20mg Use 1 [facility] 20 2-01 [place] in 1 ity of mg/actuatio 00:00: nostril as [place] n nasal 00 needed Medical spray (migraine) Branch . midazolam 2022-0 Yes [id number] 5mg Use 5 mg [facility] ([facility]IL[facility]) 2-01 in each ity of 5 mg/spray 00:00: nostril as [place] (0.1 mL) 00 needed [facility] (seizure). Branch levETIRAcet 2022-0 Yes [id number] 1000mg Take 10 mL [facility] (KEPPRA) 2-01 by mouth ity of 100 mg/mL 00:00: in the [place] oral 00 morning Medical solution and 10 mL Branch in the evening. SUMAtriptan 2022-0 Yes [id number] 20mg Use 1 [facility] 20 2-01 [place] in 1 ity of mg/actuatio 00:00: nostril as [place] n nasal 00 needed Medical spray (migraine) Branch . midazolam 2022-0 Yes [id number] 5mg Use 5 mg [facility] ([facility]) 2-01 in each ity of 5 mg/spray 00:00: nostril as [place] (0.1 mL) 00 needed [facility] (seizure). Branch levETIRAcet 2022-0 Yes [id number] 1000mg Take 10 mL [facility] (KEPPRA) 2-01 by mouth ity of 100 mg/mL 00:00: in the [place] oral 00 morning Medical solution and 10 mL Branch in the evening. SUMAtriptan 2022-0 Yes [id number] 20mg Use 1 [facility] 20 2-01 [place] [facility] 1 ity of mg/actuatio 00:00: nostril as [place] n nasal 00 needed Medical spray (migraine) Branch . midazolam 2022-0 Yes [id number] 5mg Use 5 mg [facility] ([facility]IL[facility]) 2-01 in each ity of 5 mg/spray 00:00: nostril as [place] (0.1 mL) 00 needed [facility] (seizure). Branch levETIRAcet 2022-0 Yes [id number] 1000mg Take 10 mL [facility] (KEPPRA) 2-01 by mouth ity of 100 mg/mL 00:00: in the [place] oral 00 morning Medical solution and 10 mL Branch in the evening. SUMAtriptan 2022-0 Yes [id number] 20mg Use 1 [facility] 20 2-01 [place] in 1 ity of mg/actuatio 00:00: nostril as [place] n nasal 00 needed Medical spray (migraine) Branch . midazolam 2022-0 Yes [id number] 5mg Use 5 mg [facility] ([facility]IL[facility]) 2-01 in each ity of 5 mg/spray 00:00: nostril as [place] (0.1 mL) 00 needed [facility] (seizure). Branch levETIRAcet 2022-0 Yes [id number] 1000mg Take 10 mL [facility] (KEPPRA) 2-01 by mouth ity of 100 mg/mL 00:00: in the [place] oral 00 morning Medical solution and 10 mL Branch in the evening. SUMAtriptan 2022-0 Yes [id number] 20mg Use 1 [facility] 20 2-01 [place] in 1 ity of mg/actuatio 00:00: nostril as [place] n nasal 00 needed Medical spray (migraine) Branch . midazolam 2022-0 Yes [id number] 5mg Use 5 mg [facility] ([facility]IL[facility]) 2-01 in each ity of 5 mg/spray 00:00: nostril as [place] (0.1 mL) 00 needed [facility] (seizure). Branch levETIRAcet 2022-0 Yes [id number] 1000mg Take 10 mL [facility] (KEPPRA) 2-01 by mouth ity of 100 mg/mL 00:00: in the [place] oral 00 morning Medical solution and 10 mL Branch in the evening. SUMAtriptan 2022-0 Yes [id number] 20mg Use 1 [facility] 20 2-01 [place] in 1 ity of mg/actuatio 00:00: nostril as [place] n nasal 00 needed Medical spray (migraine) Branch . midazolam 2022-0 Yes [id number] 5mg Use 5 mg [facility] ([facility]IL[facility]) 2-01 in each ity of 5 mg/spray 00:00: nostril as [place] (0.1 mL) 00 needed [facility] (seizure). Branch levETIRAcet 2022-0 Yes [id number] 1000mg Take 10 mL [facility] (KEPPRA) 2-01 by mouth ity of 100 mg/mL 00:00: in the [place] oral 00 morning Medical solution and 10 mL Branch in the evening. SUMAtriptan 2022-0 Yes [id number] 20mg Use 1 [facility] 20 2-01 [place] in 1 ity of mg/actuatio 00:00: nostril as [place] n nasal 00 needed Medical spray (migraine) Branch . midazolam 2022-0 Yes [id number] 5mg Use 5 mg [facility] ([facility]IL[facility]) 2-01 in each ity of 5 mg/spray 00:00: nostril as [place] (0.1 mL) 00 needed [facility] (seizure). Branch levETIRAcet 2022-0 Yes [id number] 1000mg Take 10 mL [facility] (KEPPRA) 2-01 by mouth ity of 100 mg/mL 00:00: in the [place] oral 00 morning Medical solution and 10 mL Branch in the evening. SUMAtriptan 2022-0 Yes [id number] 20mg Use 1 [facility] 20 2-01 [place] in 1 ity of mg/actuatio 00:00: nostril as [place] n nasal 00 needed Medical spray (migraine) Branch . midazolam 2022-0 Yes [id number] 5mg Use 5 mg [facility] ([facility]IL[facility]) 2-01 in each ity of 5 mg/spray 00:00: nostril as [place] (0.1 mL) 00 needed [facility] (seizure). Branch levETIRAcet 2022-0 Yes [id number] 1000mg Take 10 mL [facility] (KEPPRA) 2-01 by mouth ity of 100 mg/mL 00:00: in the [place] oral 00 morning Medical solution and 10 mL Branch in the evening. SUMAtriptan 2022-0 Yes [id number] 20mg Use 1 [facility] 20 2-01 [place] in 1 ity of mg/actuatio 00:00: nostril as [place] n nasal 00 needed Medical spray (migraine) Branch . midazolam 2022-0 Yes [id number] 5mg Use 5 mg [facility] ([facility]IL[facility]) 2-01 in each ity of 5 mg/spray 00:00: nostril as [place] (0.1 mL) 00 needed [facility] (seizure). Branch levETIRAcet 2022-0 Yes [id number] 1000mg Take 10 mL [facility] (KEPPRA) 2-01 by mouth ity of 100 mg/mL 00:00: in the [place] oral 00 morning Medical solution and 10 mL Branch in the evening. SUMAtriptan 2022-0 Yes [id number] 20mg Use 1 [facility] 20 2-01 [place] in 1 ity of mg/actuatio 00:00: nostril as [place] n nasal 00 needed Medical spray (migraine) Branch . midazolam 2022-0 Yes [id number] 5mg Use 5 mg [facility] ([facility]IL[facility]) 2-01 in each ity of 5 mg/spray 00:00: nostril as [place] (0.1 mL) 00 needed [facility] (seizure). Branch levETIRAcet 0 Yes [id number] 1000mg Take 10 mL [facility] (KEPPRA) 2-01 by mouth ity of 100 mg/mL 00:00: in the [place] oral 00 morning Medical solution and 10 mL Branch in the evening. SUMAtriptan 2022-0 Yes [id number] 20mg Use 1 [facility] 20 2-01 [place] in 1 ity of mg/actuatio 00:00: nostril as [place] n nasal 00 needed Medical spray (migraine) Branch . midazolam 2022-0 Yes [id number] 5mg Use 5 mg [facility] ([facility]IL[facility]) 2-01 in each ity of 5 mg/spray 00:00: nostril as [place] (0.1 mL) 00 needed [facility] (seizure). Branch levETIRAcet 0 Yes [id number] 1000mg Take 10 mL [facility] (KEPPRA) 2-01 by mouth ity of 100 mg/mL 00:00: in the [place] oral 00 morning Medical solution and 10 mL Branch in the evening. SUMAtriptan 2022-0 Yes [id number] 20mg Use 1 [facility] 20 2-01 [place] in 1 ity of mg/actuatio 00:00: nostril as [place] n nasal 00 needed Medical spray (migraine) Branch . midazolam 2022-0 Yes [id number] 5mg Use 5 mg [facility] ([facility]IL[facility]) 2-01 in each ity of 5 mg/spray 00:00: nostril as [place] (0.1 mL) 00 needed [facility] (seizure). Branch levETIRAcet 2022-0 Yes [id number] 1000mg Take 10 mL [facility] (KEPPRA) 2-01 by mouth ity of 100 mg/mL 00:00: in the [place] oral 00 morning Medical solution and 10 mL Branch in the evening. SUMAtriptan 2022-0 Yes [id number] 20mg Use 1 [facility] 20 2-01 [place] in 1 ity of mg/actuatio 00:00: nostril as [place] n nasal 00 needed Medical spray (migraine) Branch . midazolam 2022-0 Yes [id number] 5mg Use 5 mg [facility] ([facility]ZILAM) 2-01 in each ity of 5 mg/spray 00:00: nostril as [place] (0.1 mL) 00 needed [facility] (seizure). Branch levETIRAcet 2022-0 Yes [id number] 1000mg Take 10 mL [facility] (KEPPRA) 2-01 by mouth ity of 100 mg/mL 00:00: in the [place] oral 00 morning Medical solution and 10 mL Branch in the evening. SUMAtriptan 2022-0 Yes [id number] 20mg Use 1 [facility] 20 2-01 [place] in 1 ity of mg/actuatio 00:00: nostril as [place] n nasal 00 needed Medical spray (migraine) Branch . midazolam 2022-0 Yes [id number] 5mg Use 5 mg [facility] (NA[facility]ZILAM) 2-01 in each ity of 5 mg/spray 00:00: nostril as [place] (0.1 mL) 00 needed [facility] (seizure). Branch levETIRAcet 2022-0 Yes [id number] 1000mg Take 10 mL [facility] (KEPPRA) 2-01 by mouth ity of 100 mg/mL 00:00: in the [place] oral 00 morning Medical solution and 10 mL Branch in the evening. SUMAtriptan 2022-0 Yes [id number] 20mg Use 1 [facility] 20 2-01 [place] in 1 ity of mg/actuatio 00:00: nostril as [place] n nasal 00 needed Medical spray (migraine) Branch . midazolam 2022-0 Yes [id number] 5mg Use 5 mg [facility] ([facility]ZILAM) 2-01 in each ity of 5 mg/spray 00:00: nostril as [place] (0.1 mL) 00 needed [facility] (seizure). Branch levETIRAcet 2022-0 Yes [id number] 1000mg Take 10 mL [facility] (KEPPRA) 2-01 by mouth ity of 100 mg/mL 00:00: in the [place] oral 00 morning Medical solution and 10 mL Branch in the evening. SUMAtriptan 2022-0 Yes [id number] 20mg Use 1 [facility] 20 2-01 [place] in 1 ity of mg/actuatio 00:00: nostril as [place] n nasal 00 needed Medical spray (migraine) Branch . midazolam 2022-0 Yes [id number] 5mg Use 5 mg [facility] (NAYZILAM) 2-01 in each ity of 5 mg/spray 00:00: nostril as [place] (0.1 mL) 00 needed [facility] (seizure). Branch levETIRAcet 2022-0 Yes [id number] 1000mg Take 10 mL [facility] am (KEPPRA) 2-01 by mouth ity of 100 mg/mL 00:00: in the [place] oral 00 morning Medical solution and 10 mL Branch in the evening. SUMAtriptan 2022-0 Yes [id number] 20mg Use 1 [facility] 20 2-01 [place] in 1 ity of mg/actuatio 00:00: nostril as [place] n nasal 00 needed Medical spray (migraine) Branch . midazolam 2022-0 Yes [id number] 5mg Use 5 mg [facility] (NA[facility]ZILAM) 2-01 in each ity of 5 mg/spray 00:00: nostril as [place] (0.1 mL) 00 needed [facility] (seizure). Branch levETIRAcet 2022-0 Yes [id number] 1000mg Take 10 mL [facility] am (KEPPRA) 2-01 by mouth ity of 100 mg/mL 00:00: in the [place] oral 00 morning Medical solution and 10 mL Branch in the evening. SUMAtriptan 2022-0 Yes [id number] 20mg Use 1 [facility] 20 2-01 [place] in 1 ity of mg/actuatio 00:00: nostril as [place] n nasal 00 needed Medical spray (migraine) Branch . midazolam 2022-0 Yes [id number] 5mg Use 5 mg [facility] (NA[facility]ZILAM) 2-01 in each ity of 5 mg/spray 00:00: nostril as [place] (0.1 mL) 00 needed [facility] (seizure). Branch levETIRAcet 2022-0 Yes [id number] 1000mg Take 10 mL [facility] am (KEPPRA) 2-01 by mouth ity of 100 mg/mL 00:00: in the [place] oral 00 morning Medical solution and 10 mL Branch in the evening. SUMAtriptan 2022-0 Yes [id number] 20mg Use 1 [facility] 20 2-01 [place] in 1 ity of mg/actuatio 00:00: nostril as [place] n nasal 00 needed Medical spray (migraine) Branch . midazolam 2022-0 Yes [id number] 5mg Use 5 mg [facility] (NAYZILAM) 2-01 in each ity of 5 mg/spray 00:00: nostril as [place] (0.1 mL) 00 needed [facility] (seizure). Branch levETIRAcet 2022-0 Yes [id number] 1000mg Take 10 mL [facility] am (KEPPRA) 2-01 by mouth ity of 100 mg/mL 00:00: in the [place] oral 00 morning Medical solution and 10 mL Branch in the evening. SUMAtriptan 2022-0 Yes [id number] 20mg Use 1 [facility] 20 2-01 [place] in 1 ity of mg/actuatio 00:00: nostril as [place] n nasal 00 needed Medical spray (migraine) Branch . midazolam 2022-0 Yes [id number] 5mg Use 5 mg [facility] (NA[facility]ZILAM) 2-01 in each ity of 5 mg/spray 00:00: nostril as [place] (0.1 mL) 00 needed [facility] (seizure). Branch levETIRAcet 2022-0 Yes [id number] 1000mg Take 10 mL [facility] (KEPPRA) 2-01 by mouth ity of 100 mg/mL 00:00: in the [place] oral 00 morning Medical solution and 10 mL Branch in the evening. SUMAtriptan 2022-0 Yes [id number] 20mg Use 1 [facility] 20 2-01 [place] in 1 ity of mg/actuatio 00:00: nostril as [place] n nasal 00 needed Medical spray (migraine) Branch . midazolam 2022-0 Yes [id number] 5mg Use 5 mg [facility] (NA[facility]IL[facility]) 2-01 in each ity of 5 mg/spray 00:00: nostril as [place] (0.1 mL) 00 needed [facility] (seizure). Branch levETIRAcet Yes [id number] 1000mg Take 10 mL [facility] am (KEPPRA) 2-01 by mouth ity of 100 mg/mL 00:00: in the [place] oral 00 morning Medical solution and 10 mL Branch in the evening. SUMAtriptan 0 Yes [id number] 20mg Use 1 [facility] 20 2-01 [place] in 1 ity of mg/actuatio 00:00: nostril as [place] n nasal 00 needed Medical spray (migraine) Branch . midazolam Yes [id number] 5mg Use 5 mg [facility] ([facility]ZILAM) 2-01 in each ity of 5 mg/spray 00:00: nostril as [place] (0.1 mL) 00 needed [facility] (seizure). Branch levETIRAcet Yes [id number] 1000mg Take 10 mL [facility] (KEPPRA) 2-01 by mouth ity of 100 mg/mL 00:00: in the [place] oral 00 morning Medical solution and 10 mL Branch in the evening. midazolam Yes [id number] 5mg Use 5 mg [facility] (NA[facility]ZILAM) 2-01 in each ity of 5 mg/spray 00:00: nostril as [place] (0.1 mL) 00 needed [facility] (seizure). Branch levETIRAcet Yes [id number] 1000mg Take 10 mL [facility] (KEPPRA) 2-01 by mouth ity of 100 mg/mL 00:00: in the [place] oral 00 morning Medical solution and 10 mL Branch in the evening. midazolam Yes [id number] 5mg Use 5 mg [facility] (NAYZILAM) 2-01 in each ity of 5 mg/spray 00:00: nostril as [place] (0.1 mL) 00 needed [facility] (seizure). Branch levETIRAcet Yes [id number] 1000mg Take 10 mL [facility] (KEPPRA) 2-01 by mouth ity of 100 mg/mL 00:00: in the [place] oral 00 morning Medical solution and 10 mL Branch in the evening. midazolam 2022-0 Yes [id number] 5mg Use 5 mg [facility] ([facility]ZILAM) 2-01 in each ity of 5 mg/spray 00:00: nostril as [place] (0.1 mL) 00 needed [facility] (seizure). Branch levETIRAcet 0 Yes [id number] 1000mg Take 10 mL [facility] (KEPPRA) 2-01 by mouth ity of 100 mg/mL 00:00: in the [place] oral 00 morning Medical solution and 10 mL Branch in the evening. midazolam 2022-0 Yes [id number] 5mg Use 5 mg [facility] ([facility]ZILAM) 2-01 in each ity of 5 mg/spray 00:00: nostril as [place] (0.1 mL) 00 needed [facility] (seizure). Branch levETIRAcet 0 Yes [id number] 1000mg Take 10 mL [facility] (KEPPRA) 2-01 by mouth ity of 100 mg/mL 00:00: in the [place] oral 00 morning Medical solution and 10 mL Branch in the evening. midazolam 2022-0 Yes [id number] 5mg Use 5 mg [facility] (NA[facility]ZILAM) 2-01 in each ity of 5 mg/spray 00:00: nostril as [place] (0.1 mL) 00 needed [facility] (seizure). Branch levETIRAcet 2022-0 Yes [id number] 1000mg Take 10 mL [facility] (KEPPRA) 2-01 by mouth ity of 100 mg/mL 00:00: in the [place] oral 00 morning Medical solution and 10 mL Branch in the evening. midazolam 2022-0 Yes [id number] 5mg Use 5 mg [facility] (NA[facility]ZILAM) 2-01 in each ity of 5 mg/spray 00:00: nostril as [place] (0.1 mL) 00 needed [facility] (seizure). Branch levETIRAcet 0 Yes [id number] 1000mg Take 10 mL [facility] (KEPPRA) 2-01 by mouth ity of 100 mg/mL 00:00: in the [place] oral 00 morning Medical solution and 10 mL Branch in the evening. midazolam 2022-0 Yes [id number] 5mg Use 5 mg [facility] (NA[facility]ZILAM) 2-01 in each ity of 5 mg/spray 00:00: nostril as [place] (0.1 mL) 00 needed [facility] (seizure). Branch levETIRAcet 0 Yes [id number] 1000mg Take 10 mL [facility] (KEPPRA) 2-01 by mouth ity of 100 mg/mL 00:00: in the [place] oral 00 morning Medical solution and 10 mL Branch in the evening. midazolam 0 Yes [id number] 5mg Use 5 mg [facility] (NAYZILAM) 2-01 in each ity of 5 mg/spray 00:00: nostril as [place] (0.1 mL) 00 needed [facility] (seizure). Branch levETIRAcet 0 Yes [id number] 1000mg Take 10 mL [facility] am (KEPPRA) 2-01 by mouth ity of 100 mg/mL 00:00: in the [place] oral 00 morning Medical solution and 10 mL Branch in the evening. midazolam 0 Yes [id number] 5mg Use 5 mg [facility] (NA[facility]ZILAM) 2-01 in each ity of 5 mg/spray 00:00: nostril as [place] (0.1 mL) 00 needed [facility] (seizure). Branch levETIRAcet 0 Yes [id number] 1000mg Take 10 mL [facility] am (KEPPRA) 2-01 by mouth ity of 100 mg/mL 00:00: in the [place] oral 00 morning Medical solution and 10 mL Branch in the evening. midazolam 0 Yes [id number] 5mg Use 5 mg [facility] ([facility]ZILAM) 2-01 in each ity of 5 mg/spray 00:00: nostril as [place] (0.1 mL) 00 needed [facility] (seizure). Branch levETIRAcet 0 Yes [id number] 1000mg Take 10 mL [facility] am (KEPPRA) 2-01 by mouth ity of 100 mg/mL 00:00: in the [place] oral 00 morning Medical solution and 10 mL Branch in the evening. midazolam 2022-0 Yes [id number] 5mg Use 5 mg [facility] (NA[facility]ZILAM) 2-01 in each ity of 5 mg/spray 00:00: nostril as [place] (0.1 mL) 00 needed [facility] (seizure). Branch levETIRAcet Yes [id number] 1000mg Take 10 mL [facility] am (KEPPRA) 2-01 by mouth ity of 100 mg/mL 00:00: in the [place] oral 00 morning Medical solution and 10 mL Branch in the evening. midazolam Yes [id number] 5mg Use 5 mg [facility] (NA[facility]ZILAM) 2-01 in each ity of 5 mg/spray 00:00: nostril as [place] (0.1 mL) 00 needed [facility] (seizure). Branch levETIRAcet Yes [id number] 1000mg Take 10 mL [facility] am (KEPPRA) 2-01 by mouth ity of 100 mg/mL 00:00: in the [place] oral 00 morning Medical solution and 10 mL Branch in the evening. midazolam Yes [id number] 5mg Use 5 mg [facility] (NAYZILAM) 2-01 in each ity of 5 mg/spray 00:00: nostril as [place] (0.1 mL) 00 needed [facility] (seizure). Branch levETIRAcet Yes [id number] 1000mg Take 10 mL [facility] (KEPPRA) 2-01 by mouth ity of 100 mg/mL 00:00: in the [place] oral 00 morning Medical solution and 10 mL Branch in the evening. midazolam Yes [id number] 5mg Use 5 mg [facility] (NA[facility]ZILAM) 2-01 in each ity of 5 mg/spray 00:00: nostril as [place] (0.1 mL) 00 needed [facility] (seizure). Branch levETIRAcet Yes [id number] 1000mg Take 10 mL [facility] (KEPPRA) 2-01 by mouth ity of 100 mg/mL 00:00: in the [place] oral 00 morning Medical solution and 10 mL Branch in the evening. midazolam 0 Yes [id number] 5mg Use 5 mg [facility] ([facility]IL[facility]) 2-01 in each ity of 5 mg/spray 00:00: nostril as [place] (0.1 mL) 00 needed [facility] (seizure). Branch levETIRAcet Yes [id number] 1000mg Take 10 mL [facility] (KEPPRA) 2-01 by mouth ity of 100 mg/mL 00:00: in the [place] oral 00 morning Medical solution and 10 mL Branch in the evening. midazolam Yes [id number] 5mg Use 5 mg [facility] ([facility]ZILAM) 2-01 in each ity of 5 mg/spray 00:00: nostril as [place] (0.1 mL) 00 needed [facility] (seizure). Branch levETIRAcet Yes [id number] 1000mg Take 10 mL [facility] (KEPPRA) 2-01 by mouth ity of 100 mg/mL 00:00: in the [place] oral 00 morning Medical solution and 10 mL Branch in the evening. midazolam Yes [id number] 5mg Use 5 mg [facility] ([facility]ZILAM) 2-01 in each ity of 5 mg/spray 00:00: nostril as [place] (0.1 mL) 00 needed [facility] (seizure). Branch levETIRAcet Yes [id number] 1000mg Take 10 mL [facility] am (KEPPRA) 2-01 by mouth ity of 100 mg/mL 00:00: in the [place] oral 00 morning Medical solution and 10 mL Branch in the evening. midazolam Yes [id number] 5mg Use 5 mg [facility] ([facility]ZILAM) 2-01 in each ity of 5 mg/spray 00:00: nostril as [place] (0.1 mL) 00 needed [facility] (seizure). Branch levETIRAcet Yes [id number] 1000mg Take 10 mL [facility] am (KEPPRA) 2-01 by mouth ity of 100 mg/mL 00:00: in the [place] oral 00 morning Medical solution and 10 mL Branch in the evening. midazolam Yes [id number] 5mg Use 5 mg [facility] (NA[facility]ZILAM) 2-01 in each ity of 5 mg/spray 00:00: nostril as [place] (0.1 mL) 00 needed [facility] (seizure). Branch levETIRAcet Yes [id number] 1000mg Take 10 mL [facility] am (KEPPRA) 2-01 by mouth ity of 100 mg/mL 00:00: in the [place] oral 00 morning Medical solution and 10 mL Branch in the evening. midazolam Yes [id number] 5mg Use 5 mg [facility] (NA[facility]ZILAM) 2-01 in each ity of 5 mg/spray 00:00: nostril as [place] (0.1 mL) 00 needed [facility] (seizure). Branch levETIRAcet Yes [id number] 1000mg Take 10 mL [facility] am (KEPPRA) 2-01 by mouth ity of 100 mg/mL 00:00: in the [facility] [facility] morning Medical solution and 10 mL Branch in the evening. midazolam Yes [id number] 5mg Use 5 mg [facility] (NAYZILAM) 2-01 in each ity of 5 mg/spray 00:00: nostril as [place] (0.1 mL) 00 needed Medical [place] (seizure). Branch levETIRAcet Yes [id number] 1000mg Take 10 mL [facility] am (KEPPRA) 2-01 by mouth ity of 100 mg/mL 00:00: in the [place] [address] morning Medical solution and 10 mL Branch in the evening. midazolam Yes [id number] 5mg Use 5 mg [facility] (NAYZILAM) 2-01 in each ity of 5 mg/spray 00:00: nostril as [place] (0.1 mL) 00 needed Medical [place] (seizure). Branch levETIRAcet Yes [id number] 1000mg Take 10 mL [facility] am (KEPPRA) 2-01 by mouth ity of 100 mg/mL 00:00: in the [place] oral 00 morning Medical solution and 10 mL Branch in the evening. midazolam 0 Yes [id number] 5mg Use 5 mg [facility] (NAYZILAM) 2-01 in each ity of 5 mg/spray 00:00: nostril as [place] (0.1 mL) 00 needed Medical [place] (seizure). Branch levETIRAcet Yes [id number] 1000mg Take 10 mL [facility] am (KEPPRA) 2-01 by mouth ity of 100 mg/mL 00:00: in the [place] oral 00 morning Medical solution and 10 mL Branch in the evening. midazolam 2022-0 Yes [id number] 5mg Use 5 mg [facility] (NAYZILAM) 2-01 in each ity of 5 mg/spray 00:00: nostril as [place] (0.1 mL) 00 needed Medical [place] (seizure). Branch levETIRAcet 2022-0 Yes [id number] 1000mg Take 10 mL [facility] am (KEPPRA) 2-01 by mouth ity of 100 mg/mL 00:00: in the [place] oral 00 morning Medical solution and 10 mL Branch in the evening. midazolam 2022-0 Yes [id number] 5mg Use 5 mg [facility] (NAYZILAM) 2-01 in each ity of 5 mg/spray 00:00: nostril as [place] (0.1 mL) 00 needed Medical [place] (seizure). Branch levETIRAcet 0 Yes [id number] 1000mg Take 10 mL [facility] am (KEPPRA) 2-01 by mouth ity of 100 mg/mL 00:00: in the [place] oral 00 morning Medical solution and 10 mL Branch in the evening. midazolam 2022-0 Yes [id number] 5mg Use 5 mg [facility] (NAYZILAM) 2-01 in each ity of 5 mg/spray 00:00: nostril as [place] (0.1 mL) 00 needed Medical [place] (seizure). Branch levETIRAcet 2022-0 Yes [id number] 1000mg Take 10 mL [facility] am (KEPPRA) 2-01 by mouth ity of 100 mg/mL 00:00: in the [place] oral 00 morning Medical solution and 10 mL Branch in the evening. midazolam 2022-0 Yes [id number] 5mg Use 5 mg [facility] (NAYZILAM) 2-01 in each ity of 5 mg/spray 00:00: nostril as [place] (0.1 mL) 00 needed Medical [place] (seizure). Branch levETIRAcet 2022-0 Yes [id number] 1000mg Take 10 mL [facility] am (KEPPRA) 2-01 by mouth ity of 100 mg/mL 00:00: in the [place] oral 00 morning Medical solution and 10 mL Branch in the evening. midazolam 2023-0 Yes [id number] 5mg Use 5 mg [facility] (NAYZILAM) 2-01 in each ity of 5 mg/spray 00:00: nostril as [place] (0.1 mL) 00 needed Medical [place] (seizure). Branch levETIRAcet Yes [id number] 1000mg Take 10 mL [facility] am (KEPPRA) 2-01 by mouth ity of 100 mg/mL 00:00: in the [place] [address] morning Medical solution and 10 mL Branch in the evening. midazolam Yes [id number] 5mg Use 5 mg [facility] (NAYZILAM) 2-01 in each ity of 5 mg/spray 00:00: nostril as [place] (0.1 mL) 00 needed Medical [place] (seizure). Branch levETIRAcet Yes [id number] 1000mg Take 10 mL [facility] am (KEPPRA) 2-01 by mouth ity of 100 mg/mL 00:00: in the [place] [address] morning Medical solution and 10 mL Branch in the evening. midazolam Yes [id number] 5mg Use 5 mg [facility] (NAYZILAM) 2-01 in each ity of 5 mg/spray 00:00: nostril as [place] (0.1 mL) 00 needed Medical [facility] (seizure). Branch midazolam Yes [id number] 5mg Use 5 mg [facility] (NAYZILAM) 2-01 in each ity of 5 mg/spray 00:00: nostril as [place] (0.1 mL) 00 needed [facility] [place] (seizure). Branch midazolam Yes [id number] 5mg Use 5 mg [facility] (NAYZILAM) 2-01 in each ity of 5 mg/spray 00:00: nostril as [place] (0.1 mL) 00 needed Medical [facility] (seizure). Branch midazolam Yes [id number] 5mg Use 5 mg [facility] (NAYZILAM) 2-01 in each ity of 5 mg/spray 00:00: nostril as [place] (0.1 mL) 00 needed [facility] (seizure). Branch midazolam Yes [id number] 5mg Use 5 mg [facility] (NAYZILAM) 2-01 in each ity of 5 mg/spray 00:00: nostril as [place] (0.1 mL) 00 needed Medical [facility] (seizure). Branch midazolam Yes [id number] 5mg Use 5 mg [facility] (NAYZILAM) 2-01 in each ity of 5 mg/spray 00:00: nostril as [place] (0.1 mL) 00 needed [facility] (seizure). Branch midazolam Yes [id number] 5mg Use 5 mg [facility] (NAYZILAM) 2-01 in each ity of 5 mg/spray 00:00: nostril as [place] (0.1 mL) 00 needed [facility] (seizure). Branch midazolam Yes [id number] 5mg Use 5 mg [facility] (NAYZILAM) 2-01 in each ity of 5 mg/spray 00:00: nostril as [place] (0.1 mL) 00 needed Medical [facility] (seizure). Branch midazolam Yes [id number] 5mg Use 5 mg [facility] (NAYZILAM) 2-01 in each ity of 5 mg/spray 00:00: nostril as [place] (0.1 mL) 00 needed [facility] (seizure). Branch midazolam Yes [id number] 5mg Use 5 mg [facility] (NAYZILAM) 2-01 in each ity of 5 mg/spray 00:00: nostril as [place] (0.1 mL) 00 needed [facility] (seizure). Branch midazolam Yes [id number] 5mg Use 5 mg [facility] (NAYZILAM) 2-01 in each ity of 5 mg/spray 00:00: nostril as [place] (0.1 mL) 00 needed [facility] (seizure). Branch midazolam Yes [id number] 5mg Use 5 mg [facility] (NAYZILAM) 2-01 in each ity of 5 mg/spray 00:00: nostril as [place] (0.1 mL) 00 needed [facility] (seizure). Branch midazolam Yes [id number] 5mg Use 5 mg [facility] (NAYZILAM) 2-01 in each ity of 5 mg/spray 00:00: nostril as [place] (0.1 mL) 00 needed [facility] (seizure). Branch midazolam Yes [id number] 5mg Use 5 mg [facility] (NAYZILAM) 2-01 in each ity of 5 mg/spray 00:00: nostril as [place] (0.1 mL) 00 needed [facility] (seizure). Branch midazolam Yes [id number] 5mg Use 5 mg [facility] (NAYZILAM) 2-01 in each ity of 5 mg/spray 00:00: nostril as [place] (0.1 mL) 00 needed [facility] (seizure). Branch midazolam Yes [id number] 5mg Use 5 mg [facility] (NAYZILAM) 2-01 in each ity of 5 mg/spray 00:00: nostril as [place] (0.1 mL) 00 needed [facility] (seizure). Branch midazolam Yes [id number] 5mg Use 5 mg [facility] (NAYZILAM) 2-01 in each ity of 5 mg/spray 00:00: nostril as [place] (0.1 mL) 00 needed [facility] (seizure). Branch midazolam Yes [id number] 5mg Use 5 mg [facility] (NAYZILAM) 2-01 in each ity of 5 mg/spray 00:00: nostril as [place] (0.1 mL) 00 needed [facility] (seizure). Branch midazolam Yes [id number] 5mg Use 5 mg [facility] (NAYZILAM) 2-01 in each ity of 5 mg/spray 00:00: nostril as [place] (0.1 mL) 00 needed [facility] (seizure). Branch midazolam Yes [id number] 5mg Use 5 mg [facility] (NAYZILAM) 2-01 in each ity of 5 mg/spray 00:00: nostril as [place] (0.1 mL) 00 needed [facility] (seizure). Branch midazolam Yes [id number] 5mg Use 5 mg [facility] (NAYZILAM) 2-01 in each ity of 5 mg/spray 00:00: nostril as [place] (0.1 mL) 00 needed [facility] (seizure). Branch midazolam Yes [id number] 5mg Use 5 mg [facility] (NAYZILAM) 2-01 in each ity of 5 mg/spray 00:00: nostril as [place] (0.1 mL) 00 needed [facility] (seizure). Branch midazolam Yes [id number] 5mg Use 5 mg [facility] (NAYZILAM) 2-01 in each ity of 5 mg/spray 00:00: nostril as [place] (0.1 mL) 00 needed [facility] (seizure). Branch midazolam Yes [id number] 5mg Use 5 mg [facility] (NAYZILAM) 2-01 in each ity of 5 mg/spray 00:00: nostril as [place] (0.1 mL) 00 needed [facility] (seizure). Branch midazolam Yes [id number] 5mg Use 5 mg [facility] (NAYZILAM) 2-01 in each ity of 5 mg/spray 00:00: nostril as [place] (0.1 mL) 00 needed [facility] (seizure). Branch midazolam Yes [id number] 5mg Use 5 mg [facility] (NAYZILAM) 2-01 in each ity of 5 mg/spray 00:00: nostril as [place] (0.1 mL) 00 needed [facility] (seizure). Branch midazolam Yes [id number] 5mg Use 5 mg [facility] (NAYZILAM) 2-01 in each ity of 5 mg/spray 00:00: nostril as [place] (0.1 mL) 00 needed [facility] (seizure). Branch midazolam Yes [id number] 5mg Use 5 mg [facility] (NAYZILAM) 2-01 in each ity of 5 mg/spray 00:00: nostril as [place] (0.1 mL) 00 needed [facility] (seizure). Branch midazolam Yes [id number] 5mg Use 5 mg [facility] (NAYZILAM) 2-01 in each ity of 5 mg/spray 00:00: nostril as [place] (0.1 mL) 00 needed [facility] (seizure). Branch midazolam Yes [id number] 5mg Use 5 mg [facility] (NAYZILAM) 2 in each ity of 5 mg/spray 00:00: nostril as [place] (0.1 mL) 00 needed [facility] (seizure). Branch midazolam Yes [id number] 5mg Use 5 mg [facility] (NAYZILAM) 08-19 in each ity of 5 mg/spray 00:00: nostril as [place] (0.1 mL) 00 needed Medical [facility] (seizure). Branch midazolam Yes [id number] 5mg Use 5 mg [facility] (NAYZILAM) 2 in each ity of 5 mg/spray 00:00: nostril as [place] (0.1 mL) 00 needed [facility] (seizure). Branch midazolam Yes [id number] 5mg Use 5 mg [facility] (NAYZILAM) 08-19 in each ity of 5 mg/spray 00:00: nostril as [place] (0.1 mL) 00 needed Medical [facility] (seizure). Branch midazolam 2022- No [id number] 5mg Use 5 mg [facility] (NAYZILAM) 08-19 in each ity o f 5 mg/spray 00:00: 00:00 nostril as [place] (0.1 mL) 00 :00 needed Medical [facility] (seizure). Branch midazolam 2022- No [id number] 5mg Use 5 mg [facility] (NAYZILAM) 08-19 in each ity o f 5 mg/spray 00:00: 00:00 nostril as [place] (0.1 mL) 00 :00 needed Medical [facility] (seizure). Branch levETIRAcet 2022- No [id number] 1000mg Take 10 mL [facility] am (KEPPRA) 08-19 by mouth ity of 100 mg/mL 00:00: 00:00 in the [place] oral 00 :00 morning Medical solution and 10 mL Branch in the evening. SUMAtriptan 2022- No [id number] 20mg Use 1 [facility] 20 08-19 06-05 [place] in 1 ity of mg/actuatio 00:00: 00:00 nostril as [place] n nasal 00 :00 needed Medical spray (migraine) Branch . SUMAtriptan 2022-0 3- No [id number] 20mg Use 1 [facility] 20 08-19 06-05 [place] in 1 ity of mg/actuatio 00:00: 00:00 nostril as [place] n nasal 00 :00 needed Medical spray (migraine) Branch . SUMAtriptan 2022-0 2023- No [id number] 20mg Use 1 [facility] 20 08-19 06-05 [place] in 1 ity of mg/actuatio 00:00: 00:00 [...] FOR WHEEZING/S HORTNESS OF BREATH. levalbutero 2022-0 3- No INHALE 2 U nivers l (XOPENEX 08-18 08-07 PUFFS BY ity of HFA) 45 00:00: 00:00 MOUTH [place] mcg/actuati 00 :00 EVERY 6 Medic al on inhaler HOURS Branc h NEEDED BEFORE EXERCISE OR FOR WHEEZING/S HORTNESS OF BREATH. levalbutero 2022-0 3- No INHALE 2 U nivers l (XOPENEX 08-18 08-07 PUFFS BY ity of HFA) 45 00:00: 00:00 MOUTH [place] mcg/actuati 00 :00 EVERY 6 Medic al on inhaler HOURS Branc h NEEDED BEFORE EXERCISE OR FOR WHEEZING/S HORTNESS OF BREATH. ciprofloxac 3-0 3- No [id number] 500mg Take 10 mL [facility] in (CIPRO) 08-18 by mouth ity of 250 mg/5 mL 00:00: 05:59 every 12 [place] suspension 00 :00 (twelve) Medic al hours for Branch 5 days. ciprofloxac 3-0 3- No [id number] 500mg Take 10 mL [facility] in (CIPRO) 08-18 by mouth ity of 250 mg/5 mL 00:00: 05:59 every 12 [place] suspension 00 :00 (twelve) Medic al hours for Branch 5 days. ciprofloxac 3-0 2023- No [id number] 500mg Take 10 mL [facility] in (CIPRO) 08-18 by mouth ity of 250 mg/5 mL 00:00: 05:59 every 12 [place] suspension 00 :00 (twelve) Medic al hours for Branch 5 days. ciprofloxac 2023-0 2023- No [id number] 500mg Take 10 mL [facility] in (CIPRO) 08-18 by mouth ity of 250 mg/5 mL 00:00: 05:59 every 12 [place] suspension 00 :00 (twelve) Medic al hours for Branch 5 days. ciprofloxac 2023-0 2023- No [id number] 500mg Take 10 mL [facility] in (CIPRO) 08-18 by mouth ity of 250 mg/5 mL 00:00: 05:59 every 12 [place] suspension 00 :00 (twelve) Medic al hours for Branch 5 days. ciprofloxac 2023-0 2023- No [id number] 500mg Take 10 mL [facility] in (CIPRO) 08-18 by mouth ity of 250 mg/5 mL 00:00: 05:59 every 12 [place] suspension 00 :00 (twelve) Medic al hours for Branch 5 days. ciprofloxac 2023-0 2023- No [id number] 500mg Take 10 mL [facility] in (CIPRO) 08-18 by mouth ity of 250 mg/5 mL 00:00: 05:59 every 12 [place] suspension 00 :00 (twelve) Medic al hours for Branch 5 days. ciprofloxac 2023-0 2023- No [id number] 500mg Take 10 mL [facility] in (CIPRO) [...] morning Branc h for 2 days. benralizuma 0 Yes [id number] 30mg inject 1 [facility] b (FASENRA 1-24 Pen under ity of PEN) 30 00:00: the skin [place] mg/mL AtIn 00 every 8 Medica l (eight) Branch weeks. benralizuma 2022-0 Yes [id number] 30mg inject 1 [facility] b (FASENRA 1-24 Pen under ity of PEN) 30 00:00: the skin [place] mg/mL AtIn 00 every 8 Medica l (eight) Branch weeks. benralizuma 2022-0 Yes [id number] 30mg inject 1 [facility] b (FASENRA 1-24 Pen under ity of PEN) 30 00:00: the skin [place] mg/mL AtIn 00 every 8 Medica l (eight) Branch weeks. benralizuma 2022-0 Yes [id number] 30mg inject 1 [facility] b (FASENRA 1-24 Pen under ity of PEN) 30 00:00: the skin [place] mg/mL AtIn 00 every 8 Medica l (eight) Branch weeks. benralizuma 2022-0 Yes [id number] 30mg inject 1 [facility] b (FASENRA 1-24 Pen under ity of PEN) 30 00:00: the skin [place] mg/mL AtIn 00 every 8 Medica l (eight) Branch weeks. benralizuma 2022-0 Yes [id number] 30mg inject 1 [facility] b (FASENRA 1-24 Pen under ity of PEN) 30 00:00: the skin [place] mg/mL AtIn 00 every 8 Medica l (eight) Branch weeks. benralizuma 2023-0 Yes [id number] 30mg inject 1 [facility] b (FASENRA 1-24 Pen under ity of PEN) 30 00:00: the skin [place] mg/mL AtIn 00 every 8 Medica l (eight) Branch weeks. benralizuma 2023-0 Yes [id number] 30mg inject 1 [facility] b (FASENRA 1-24 Pen under ity of PEN) 30 00:00: the skin [place] mg/mL AtIn 00 every 8 Medica l (eight) Branch weeks. benralizuma 2023-0 Yes [id number] 30mg inject 1 [facility] b (FASENRA 1-24 Pen under ity of PEN) 30 00:00: the skin [place] mg/mL AtIn 00 every 8 Medica l (eight) Branch weeks. benralizuma 2023-0 Yes [id number] 30mg inject 1 [facility] b (FASENRA 1-24 Pen under ity of PEN) 30 00:00: the skin [place] mg/mL AtIn 00 every 8 Medica l (eight) Branch weeks. benralizuma 2023-0 Yes [id number] 30mg inject 1 [facility] b (FASENRA 1-24 Pen under ity of PEN) 30 00:00: the skin [place] mg/mL AtIn 00 every 8 Medica l (eight) Branch weeks. benralizuma 2023-0 Yes [id number] 30mg inject 1 [facility] b (FASENRA 1-24 Pen under ity of PEN) 30 00:00: the skin [place] mg/mL AtIn 00 every 8 Medica l (eight) Branch weeks. benralizuma 2023-0 Yes [id number] 30mg inject 1 [facility] b (FASENRA 1-24 Pen under ity of PEN) 30 00:00: the skin [place] mg/mL AtIn 00 every 8 Medica l (eight) Branch weeks. benralizuma 2023-0 Yes [id number] 30mg inject 1 [facility] b (FASENRA 1-24 Pen under ity of PEN) 30 00:00: the skin [place] mg/mL AtIn 00 every 8 Medica l (eight) Branch weeks. benralizuma 2023-0 Yes [id number] 30mg inject 1 [facility] b (FASENRA 1-24 Pen under ity of PEN) 30 00:00: the skin [place] mg/mL AtIn 00 every 8 Medica l (eight) Branch weeks. benralizuma 3-0 Yes [id number] 30mg inject 1 [facility] b (FASENRA 1-24 Pen under ity of PEN) 30 00:00: the skin [place] mg/mL AtIn 00 every 8 Medica l (eight) Branch weeks. benralizuma 3-0 Yes [id number] 30mg inject 1 [facility] b (FASENRA 1-24 Pen under ity of PEN) 30 00:00: the skin [place] mg/mL AtIn 00 every 8 Medica l (eight) Branch weeks. benralizuma 3-0 Yes [id number] 30mg inject 1 [facility] b (FASENRA 1-24 Pen under ity of PEN) 30 00:00: the skin [place] mg/mL AtIn 00 every 8 Medica l (eight) Branch weeks. benralizuma 3-0 Yes [id number] 30mg inject 1 [facility] b (FASENRA 1-24 Pen under ity of PEN) 30 00:00: the skin [place] mg/mL AtIn 00 every 8 Medica l (eight) Branch weeks. benralizuma 3-0 Yes [id number] 30mg inject 1 [facility] b (FASENRA 1-24 Pen under ity of PEN) 30 00:00: the skin [place] mg/mL AtIn 00 every 8 Medica l (eight) Branch weeks. benralizuma 3-0 Yes [id number] 30mg inject 1 [facility] b (FASENRA 1-24 Pen under ity of PEN) 30 00:00: the skin [place] mg/mL AtIn 00 every 8 Medica l (eight) Branch weeks. benralizuma 2023-0 Yes [id number] 30mg inject 1 [facility] b (FASENRA 1-24 Pen under ity of PEN) 30 00:00: the skin [place] mg/mL AtIn 00 every 8 Medica l (eight) Branch weeks. benralizuma 2023-0 Yes [id number] 30mg inject 1 [facility] b (FASENRA 1-24 Pen under ity of PEN) 30 00:00: the skin [place] mg/mL AtIn 00 every 8 Medica l (eight) Branch weeks. benralizuma 2023-0 Yes [id number] 30mg inject 1 [facility] b (FASENRA 1-24 Pen under ity of PEN) 30 00:00: the skin [place] mg/mL AtIn 00 every 8 Medica l (eight) Branch weeks. benralizuma 2023-0 Yes [id number] 30mg inject 1 [facility] b (FASENRA 1-24 Pen under ity of PEN) 30 00:00: the skin [place] mg/mL AtIn 00 every 8 Medica l (eight) Branch weeks. benralizuma 2023-0 Yes [id number] 30mg inject 1 [facility] b (FASENRA 1-24 Pen under ity of PEN) 30 00:00: the skin [place] mg/mL AtIn 00 every 8 Medica l (eight) Branch weeks. benralizuma 2023-0 Yes [id number] 30mg inject 1 [facility] b (FASENRA 1-24 Pen under ity of PEN) 30 00:00: the skin [place] mg/mL AtIn 00 every 8 Medica l (eight) Branch weeks. benralizuma 2023-0 Yes [id number] 30mg inject 1 [facility] b (FASENRA 1-24 Pen under ity of PEN) 30 00:00: the skin [place] mg/mL AtIn 00 every 8 Medica l (eight) Branch weeks. benralizuma 2023-0 Yes [id number] 30mg inject 1 [facility] b (FASENRA 1-24 Pen under ity of PEN) 30 00:00: the skin [place] mg/mL AtIn 00 every 8 Medica l (eight) Branch weeks. benralizuma 2023-0 Yes [id number] 30mg inject 1 [facility] b (FASENRA 1-24 Pen under ity of PEN) 30 00:00: the skin [place] mg/mL AtIn 00 every 8 Medica l (eight) Branch weeks. benralizuma 2023-0 Yes [id number] 30mg inject 1 [facility] b (FASENRA 1-24 Pen under ity of PEN) 30 00:00: the skin [place] mg/mL AtIn 00 every 8 Medica l (eight) Branch weeks. benralizuma 2023-0 Yes [id number] 30mg inject 1 [facility] b (FASENRA 1-24 Pen under ity of PEN) 30 00:00: the skin [place] mg/mL AtIn 00 every 8 Medica l (eight) Branch weeks. benralizuma 2023-0 Yes [id number] 30mg inject 1 [facility] b (FASENRA 1-24 Pen under ity of PEN) 30 00:00: the skin [place] mg/mL AtIn 00 every 8 Medica l (eight) Branch weeks. benralizuma 2023-0 Yes [id number] 30mg inject 1 [facility] b (FASENRA 1-24 Pen under ity of PEN) 30 00:00: the skin [place] mg/mL AtIn 00 every 8 Medica l (eight) Branch weeks. benralizuma 3-0 Yes [id number] 30mg inject 1 [facility] b (FASENRA 1-24 Pen under ity of PEN) 30 00:00: the skin [place] mg/mL AtIn 00 every 8 Medica l (eight) Branch weeks. benralizuma 3-0 Yes [id number] 30mg inject 1 [facility] b (FASENRA 1-24 Pen under ity of PEN) 30 00:00: the skin [place] mg/mL AtIn 00 every 8 Medica l (eight) Branch weeks. benralizuma 3-0 Yes [id number] 30mg inject 1 [facility] b (FASENRA 1-24 Pen under ity of PEN) 30 00:00: the skin [place] mg/mL AtIn 00 every 8 Medica l (eight) Branch weeks. benralizuma 3-0 Yes [id number] 30mg inject 1 [facility] b (FASENRA 1-24 Pen under ity of PEN) 30 00:00: the skin [place] mg/mL AtIn 00 every 8 Medica l (eight) Branch weeks. benralizuma 2023-0 Yes [id number] 30mg inject 1 [facility] b (FASENRA 1-24 Pen under ity of PEN) 30 00:00: the skin [place] mg/mL AtIn 00 every 8 Medica l (eight) Branch weeks. benralizuma 2023-0 Yes [id number] 30mg inject 1 [facility] b (FASENRA 1-24 Pen under ity of PEN) 30 00:00: the skin [place] mg/mL AtIn 00 every 8 Medica l (eight) Branch weeks. benralizuma 3-0 Yes [id number] 30mg inject 1 [facility] b (FASENRA 1-24 Pen under ity of PEN) 30 00:00: the skin [place] mg/mL AtIn 00 every 8 Medica l (eight) Branch weeks. benralizuma 2023-0 Yes [id number] 30mg inject 1 [facility] b (FASENRA 1-24 Pen under ity of PEN) 30 00:00: the skin [place] mg/mL AtIn 00 every 8 Medica l (eight) Branch weeks. benralizuma 2023-0 Yes [id number] 30mg inject 1 [facility] b (FASENRA 1-24 Pen under ity of PEN) 30 00:00: the skin [place] mg/mL AtIn 00 every 8 Medica l (eight) Branch weeks. benralizuma 2023-0 Yes [id number] 30mg inject 1 [facility] b (FASENRA 1-24 Pen under ity of PEN) 30 00:00: the skin [place] mg/mL AtIn 00 every 8 Medica l (eight) Branch weeks. benralizuma 3-0 Yes [id number] 30mg inject 1 [facility] b (FASENRA 1-24 Pen under ity of PEN) 30 00:00: the skin [place] mg/mL AtIn 00 every 8 Medica l (eight) Branch weeks. benralizuma 3-0 Yes [id number] 30mg inject 1 [facility] b (FASENRA 1-24 Pen under ity of PEN) 30 00:00: the skin [place] mg/mL AtIn 00 every 8 Medica l (eight) Branch weeks. benralizuma 2023-0 Yes [id number] 30mg inject 1 [facility] b (FASENRA 1-24 Pen under ity of PEN) 30 00:00: the skin [place] mg/mL AtIn 00 every 8 Medica l (eight) Branch weeks. benralizuma 2023-0 Yes [id number] 30mg inject 1 [facility] b (FASENRA 1-24 Pen under ity of PEN) 30 00:00: the skin [place] mg/mL AtIn 00 every 8 Medica l (eight) Branch weeks. benralizuma 2023-0 Yes [id number] 30mg inject 1 [facility] b (FASENRA 1-24 Pen under ity of PEN) 30 00:00: the skin [place] mg/mL AtIn 00 every 8 Medica l (eight) Branch weeks. benralizuma 2023-0 Yes [id number] 30mg inject 1 [facility] b (FASENRA 1-24 Pen under ity of PEN) 30 00:00: the skin [place] mg/mL AtIn 00 every 8 Medica l (eight) Branch weeks. benralizuma 2023-0 Yes [id number] 30mg inject 1 [facility] b (FASENRA 1-24 Pen under ity of PEN) 30 00:00: the skin [place] mg/mL AtIn 00 every 8 Medica l (eight) Branch weeks. benralizuma 2023-0 Yes [id number] 30mg inject 1 [facility] b (FASENRA 1-24 Pen under ity of PEN) 30 00:00: the skin [place] mg/mL AtIn 00 every 8 Medica l (eight) Branch weeks. benralizuma 2023-0 Yes [id number] 30mg inject 1 [facility] b (FASENRA 1-24 Pen under ity of PEN) 30 00:00: the skin [place] mg/mL AtIn 00 every 8 Medica l (eight) Branch weeks. benralizuma 2023-0 Yes [id number] 30mg inject 1 [facility] b (FASENRA 1-24 Pen under ity of PEN) 30 00:00: the skin [place] mg/mL AtIn 00 every 8 Medica l (eight) Branch weeks. benralizuma 2023-0 Yes [id number] 30mg inject 1 [facility] b (FASENRA 1-24 Pen under ity of PEN) 30 00:00: the skin [place] mg/mL AtIn 00 every 8 Medica l (eight) Branch weeks. benralizuma 2023-0 Yes [id number] 30mg inject 1 [facility] b (FASENRA 1-24 Pen under ity of PEN) 30 00:00: the skin [place] mg/mL AtIn 00 every 8 Medica l (eight) Branch weeks. benralizuma 2023-0 Yes [id number] 30mg inject 1 [facility] b (FASENRA 1-24 Pen under ity of PEN) 30 00:00: the skin [place] mg/mL AtIn 00 every 8 Medica l (eight) Branch weeks. benralizuma 2023-0 Yes [id number] 30mg inject 1 [facility] b (FASENRA 1-24 Pen under ity of PEN) 30 00:00: the skin [place] mg/mL AtIn 00 every 8 Medica l (eight) Branch weeks. benralizuma 2023-0 Yes [id number] 30mg inject 1 [facility] b (FASENRA 1-24 Pen under ity of PEN) 30 00:00: the skin [place] mg/mL AtIn 00 every 8 Medica l (eight) Branch weeks. benralizuma 3-0 Yes [id number] 30mg inject 1 [facility] b (FASENRA 1-24 Pen under ity of PEN) 30 00:00: the skin [place] mg/mL AtIn 00 every 8 Medica l (eight) Branch weeks. benralizuma 3-0 Yes [id number] 30mg inject 1 [facility] b (FASENRA 1-24 Pen under ity of PEN) 30 00:00: the skin [place] mg/mL AtIn 00 every 8 Medica l (eight) Branch weeks. benralizuma 3-0 Yes [id number] 30mg inject 1 [facility] b (FASENRA 1-24 Pen under ity of PEN) 30 00:00: the skin [place] mg/mL AtIn 00 every 8 Medica l (eight) Branch weeks. benralizuma 3-0 Yes [id number] 30mg inject 1 [facility] b (FASENRA 1-24 Pen under ity of PEN) 30 00:00: the skin [place] mg/mL AtIn 00 every 8 Medica l (eight) Branch weeks. benralizuma 3-0 Yes [id number] 30mg inject 1 [facility] b (FASENRA 1-24 Pen under ity of PEN) 30 00:00: the skin [place] mg/mL AtIn 00 every 8 Medica l (eight) Branch weeks. benralizuma 2023-0 Yes [id number] 30mg inject 1 [facility] b (FASENRA 1-24 Pen under ity of PEN) 30 00:00: the skin [place] mg/mL AtIn 00 every 8 Medica l (eight) Branch weeks. benralizuma 2023-0 Yes [id number] 30mg inject 1 [facility] b (FASENRA 1-24 Pen under ity of PEN) 30 00:00: the skin [place] mg/mL AtIn 00 every 8 Medica l (eight) Branch weeks. benralizuma 2023-0 Yes [id number] 30mg inject 1 [facility] (FASENRA 1-24 Pen under ity of PEN) 30 00:00: the skin [place] mg/mL AtIn 00 every 8 Medica l (eight) Branch weeks. benralizuma 2023-0 Yes [id number] 30mg inject 1 [facility] (FASENRA 1-24 Pen under ity of PEN) 30 00:00: the skin [place] mg/mL AtIn 00 every 8 Medica l (eight) Branch weeks. benralizuma 2023-0 Yes [id number] 30mg inject 1 [facility] (FASENRA 1-24 Pen under ity of PEN) 30 00:00: the skin [place] mg/mL AtIn 00 every 8 Med[facility] l (eight) Branch weeks. benralizuma 2023-0 Yes [id number] 30mg inject 1 [facility] (FASENRA 1-24 Pen under ity of PEN) 30 00:00: the skin [place] mg/mL AtIn 00 every 8 Medica l (eight) Branch weeks. benralizuma 3-0 Yes [id number] 30mg inject 1 [facility] (FASENRA 1-24 Pen under ity of PEN) 30 00:00: the skin [place] mg/mL AtIn 00 every 8 Med[facility] l (eight) Branch weeks. benralizuma 3-0 Yes [id number] 30mg inject 1 [facility] (FASENRA 1-24 Pen under ity of PEN) 30 00:00: the skin [place] mg/mL AtIn 00 every 8 Medica l (eight) Branch weeks. benralizuma 2023-0 Yes [id number] 30mg inject 1 [facility] (FASENRA 1-24 Pen under ity of PEN) 30 00:00: the skin [place] mg/mL AtIn 00 every 8 Medica l (eight) Branch weeks. benralizuma 2023-0 Yes [id number] 30mg inject 1 [facility] (FASENRA 1-24 Pen under ity of PEN) 30 00:00: the skin [place] mg/mL AtIn 00 every 8 Medica l (eight) Branch weeks. benralizuma 2023-0 Yes [id number] 30mg inject 1 [facility] (FASENRA 1-24 Pen under ity of PEN) 30 00:00: the skin [place] mg/mL AtIn 00 every 8 Medica l (eight) Branch weeks. benralizuma 2023-0 Yes [id number] 30mg inject 1 [facility] (FASENRA 1-24 Pen under ity of PEN) 30 00:00: the skin [place] mg/mL AtIn 00 every 8 Medica l (eight) Branch weeks. benralizuma 2023-0 Yes [id number] 30mg inject 1 [facility] (FASENRA 1-24 Pen under ity of PEN) 30 00:00: the skin [place] mg/mL AtIn 00 every 8 Medica l (eight) Branch weeks. benralizuma 2023-0 Yes [id number] 30mg inject 1 [facility] (FASENRA 1-24 Pen under ity of PEN) 30 00:00: the skin [place] mg/mL AtIn 00 every 8 Medica l (eight) Branch weeks. benralizuma 2023-0 Yes [id number] 30mg inject 1 [facility] (FASENRA 1-24 Pen under ity of PEN) 30 00:00: the skin [place] mg/mL AtIn 00 every 8 Medica l (eight) Branch weeks. benralizuma 2023-0 Yes [id number] 30mg inject 1 [facility] (FASENRA 1-24 Pen under ity of PEN) 30 00:00: the skin [place] mg/mL AtIn 00 every 8 Medica l (eight) Branch weeks. benralizuma 2023-0 Yes [id number] 30mg inject 1 [facility] (FASENRA 1-24 Pen under ity of PEN) 30 00:00: the skin [place] mg/mL AtIn 00 every 8 Medica l (eight) Branch weeks. benralizuma 2023-0 Yes [id number] 30mg inject 1 [facility] (FASENRA 1-24 Pen under ity of PEN) 30 00:00: the skin [place] mg/mL AtIn 00 every 8 Medica l (eight) Branch weeks. benralizuma 2023-0 Yes [id number] 30mg inject 1 [facility] (FASENRA 1-24 Pen under ity of PEN) 30 00:00: the skin [place] mg/mL AtIn 00 every 8 Medica l (eight) Branch weeks. benralizuma 2023-0 Yes [id number] 30mg inject 1 [facility] (FASENRA 1-24 Pen under ity of PEN) 30 00:00: the skin [place] mg/mL AtIn 00 every 8 Medica l (eight) Branch weeks. benralizuma 2023-0 Yes [id number] 30mg inject 1 [facility] (FASENRA 1-24 Pen under ity of PEN) 30 00:00: the skin [place] mg/mL AtIn 00 every 8 Medica l (eight) Branch weeks. benralizuma 2023-0 Yes [id number] 30mg inject 1 [facility] (FASENRA 1-24 Pen under ity of PEN) 30 00:00: the skin [place] mg/mL AtIn 00 every 8 Medica l (eight) Branch weeks. benralizuma 2023-0 Yes [id number] 30mg inject 1 [facility] (FASENRA 1-24 Pen under ity of PEN) 30 00:00: the skin [place] mg/mL AtIn 00 every 8 Medica l (eight) Branch weeks. benralizuma 3-0 Yes [id number] 30mg inject 1 [facility] (FASENRA 1-24 Pen under ity of PEN) 30 00:00: the skin [place] mg/mL AtIn 00 every 8 Med[facility] l (eight) Branch weeks. benralizuma 3-0 Yes [id number] 30mg inject 1 [facility] (FASENRA 1-24 Pen under ity of PEN) 30 00:00: the skin [place] mg/mL AtIn 00 every 8 Medica l (eight) Branch weeks. benralizuma 2023-0 Yes [id number] 30mg inject 1 [facility] (FASENRA 1-24 Pen under ity of PEN) 30 00:00: the skin [place] mg/mL AtIn 00 every 8 Medica l (eight) Branch weeks. benralizuma 2023-0 Yes [id number] 30mg inject 1 [facility] (FASENRA 1-24 Pen under ity of PEN) 30 00:00: the skin [place] mg/mL AtIn 00 every 8 Medica l (eight) Branch weeks. benralizuma 2023-0 Yes [id number] 30mg inject 1 [facility] (FASENRA 1-24 Pen under ity of PEN) 30 00:00: the skin [place] mg/mL AtIn 00 every 8 Medica l (eight) Branch weeks. benralizuma 2023-0 Yes [id number] 30mg inject 1 [facility] (FASENRA 1-24 Pen under ity of PEN) 30 00:00: the skin [place] mg/mL AtIn 00 every 8 Medica l (eight) Branch weeks. benralizuma 2023-0 Yes [id number] 30mg inject 1 [facility] (FASENRA 1-24 Pen under ity of PEN) 30 00:00: the skin [place] mg/mL AtIn 00 every 8 Medica l (eight) Branch weeks. benralizuma 2023-0 Yes [id number] 30mg inject 1 [facility] (FASENRA 1-24 Pen under ity of PEN) 30 00:00: the skin [place] mg/mL AtIn 00 every 8 Medica l (eight) Branch weeks. benralizuma 2023-0 Yes [id number] 30mg inject 1 [facility] (FASENRA 1-24 Pen under ity of PEN) 30 00:00: the skin [place] mg/mL AtIn 00 every 8 Medica l (eight) Branch weeks. benralizuma 3-0 Yes [id number] 30mg inject 1 [facility] (FASENRA 1-24 Pen under ity of PEN) 30 00:00: the skin [place] mg/mL AtIn 00 every 8 Medica l (eight) Branch weeks. benralizuma 2023-0 Yes [id number] 30mg inject 1 [facility] (FASENRA 1-24 Pen under ity of PEN) 30 00:00: the skin [place] mg/mL AtIn 00 every 8 Medica l (eight) Branch weeks. benralizuma 2023-0 Yes [id number] 30mg inject 1 [facility] (FASENRA 1-24 Pen under ity of PEN) 30 00:00: the skin [place] mg/mL AtIn 00 every 8 Medica l (eight) Branch weeks. benralizuma 2023-0 Yes [id number] 30mg inject 1 [facility] (FASENRA 1-24 Pen under ity of PEN) 30 00:00: the skin [place] mg/mL AtIn 00 every 8 Medica l (eight) Branch weeks. benralizuma 2023-0 Yes [id number] 30mg inject 1 [facility] (FASENRA 1-24 Pen under ity of PEN) 30 00:00: the skin [place] mg/mL AtIn 00 every 8 Medica l (eight) Branch weeks. benralizuma 2023-0 Yes [id number] 30mg inject 1 [facility] (FASENRA 1-24 Pen under ity of PEN) 30 00:00: the skin [place] mg/mL AtIn 00 every 8 Medica l (eight) Branch weeks. benralizuma 2023-0 Yes [id number] 30mg inject 1 [facility] (FASENRA 1-24 Pen under ity of PEN) 30 00:00: the skin [place] mg/mL AtIn 00 every 8 Medica l (eight) Branch weeks. benralizuma 2023-0 Yes [id number] 30mg inject 1 [facility] (FASENRA 1-24 Pen under ity of PEN) 30 00:00: the skin [place] mg/mL AtIn 00 every 8 Medica l (eight) Branch weeks. benralizuma 2023-0 Yes [id number] 30mg inject 1 [facility] (FASENRA 1-24 Pen under ity of PEN) 30 00:00: the skin [place] mg/mL AtIn 00 every 8 Medica l (eight) Branch weeks. benralizuma 3-0 Yes [id number] 30mg inject 1 [facility] (FASENRA 1-24 Pen under ity of PEN) 30 00:00: the skin [place] mg/mL AtIn 00 every 8 Medica l (eight) Branch weeks. benralizuma 2023-0 Yes [id number] 30mg inject 1 [facility] (FASENRA 1-24 Pen under ity of PEN) 30 00:00: the skin [place] mg/mL AtIn 00 every 8 Medica l (eight) Branch weeks. benralizuma 2023-0 Yes [id number] 30mg inject 1 [facility] (FASENRA 1-24 Pen under ity of PEN) 30 00:00: the skin [place] mg/mL AtIn 00 every 8 Medica l (eight) Branch weeks. benralizuma 2023-0 Yes [id number] 30mg inject 1 [facility] (FASENRA 1-24 Pen under ity of PEN) 30 00:00: the skin [place] mg/mL AtIn 00 every 8 Medica l (eight) Branch weeks. benralizuma 2023-0 Yes [id number] 30mg inject 1 [facility] (FASENRA 1-24 Pen under ity of PEN) 30 00:00: the skin [place] mg/mL AtIn 00 every 8 Medica l (eight) Branch weeks. benralizuma 2023-0 Yes [id number] 30mg inject 1 [facility] (FASENRA 1-24 Pen under ity of PEN) 30 00:00: the skin [place] mg/mL AtIn 00 every 8 Medica l (eight) Branch weeks. benralizuma 2023-0 Yes [id number] 30mg inject 1 [facility] (FASENRA 1-24 Pen under ity of PEN) 30 00:00: the skin [place] mg/mL AtIn 00 every 8 Medica l (eight) Branch weeks. benralizuma 2023-0 Yes [id number] 30mg inject 1 [facility] (FASENRA 1-24 Pen under ity of PEN) 30 00:00: the skin [place] mg/mL AtIn 00 every 8 Medica l (eight) Branch weeks. benralizuma 2023-0 Yes [id number] 30mg inject 1 [facility] (FASENRA 1-24 Pen under ity of PEN) 30 00:00: the skin [place] mg/mL AtIn 00 every 8 Medica l (eight) Branch weeks. benralizuma 2023-0 Yes [id number] 30mg inject 1 [facility] (FASENRA 1-24 Pen under ity of PEN) 30 00:00: the skin [place] mg/mL AtIn 00 every 8 Medica l (eight) Branch weeks. benralizuma 2023-0 Yes [id number] 30mg inject 1 [facility] (FASENRA 1-24 Pen under ity of PEN) 30 00:00: the skin [place] mg/mL AtIn 00 every 8 Medica l (eight) Branch weeks. benralizuma 2023-0 Yes [id number] 30mg inject 1 [facility] (FASENRA 1-24 Pen under ity of PEN) 30 00:00: the skin [place] mg/mL AtIn 00 every 8 Medica l (eight) Branch weeks. benralizuma 2023-0 Yes [id number] 30mg inject 1 [facility] (FASENRA 1-24 Pen under ity of PEN) 30 00:00: the skin [place] mg/mL AtIn 00 every 8 Medica l (eight) Branch weeks. benralizuma 2023-0 Yes [id number] 30mg inject 1 [facility] (FASENRA 1-24 Pen under ity of PEN) 30 00:00: the skin [place] mg/mL AtIn 00 every 8 Medica l (eight) Branch weeks. benralizuma 2023-0 Yes [id number] 30mg inject 1 [facility] (FASENRA 1-24 Pen under ity of PEN) 30 00:00: the skin [place] mg/mL AtIn 00 every 8 Medica l (eight) Branch weeks. benralizuma 3-0 Yes [id number] 30mg inject 1 [facility] (FASENRA 1-24 Pen under ity of PEN) 30 00:00: the skin [place] mg/mL AtIn 00 every 8 Medica l (eight) Branch weeks. benralizuma 3-0 Yes [id number] 30mg inject 1 [facility] (FASENRA 1-24 Pen under ity of PEN) 30 00:00: the skin [place] mg/mL AtIn 00 every 8 Medica l (eight) Branch weeks. benralizuma 3-0 3- No [id number] 30mg inject 1 [facility] (FASENRA 1-24 08-08 Pen under ity of PEN) 30 00:00: 00:00 the skin [place] mg/mL AtIn 00 :00 every 8 Medica l (eight) Branch weeks. benralizuma 3-0 3- No [id number] 30mg inject 1 [facility] (FASENRA 124 08-08 Pen under ity of PEN) 30 00:00: 00:00 the skin [place] mg/mL AtIn 00 :00 every 8 Medica l (eight) Branch weeks. benralizuma 3-0 2023- No [id number] 30mg inject 1 [facility] (FASENRA 1-24 08-08 Pen under ity of PEN) 30 00:00: 00:00 the skin [place] mg/mL AtIn 00 :00 every 8 Medica l (eight) Branch weeks. benralizuma 3-0 2023- No [id number] 30mg inject 1 [facility] (FASENRA 1-24 08-08 Pen under ity of PEN) 30 00:00: 00:00 the skin [place] mg/mL AtIn 00 :00 every 8 Medica l (eight) Branch weeks. VRAYLAR 3 2022-0 Yes 3mg Take 3 mg [facility] mg Cap 1-07 by mouth ity of 00:00: at [place] [address] bedtime. Medical Branch VRAYLAR 3 2022-0 Yes 3mg Take 3 mg [facility] mg Cap 1-07 by mouth ity of 00:00: at [place] [address] bedtime. Medical Branch VRAYLAR 3 2022-0 Yes 3mg Take 3 mg [facility] mg Cap 1-07 by mouth ity of 00:00: at [place] [address] bedtime. Medical Branch VRAYLAR 3 2022-0 Yes 3mg Take 3 mg [facility] mg Cap 1-07 by mouth ity of 00:00: at [place] [address] bedtime. Medical Branch VRAYLAR 3 2022-0 Yes 3mg Take 3 mg [facility] mg Cap 1-07 by mouth ity of 00:00: at [place] [address] bedtime. Medical Branch VRAYLAR 3 2022-0 Yes 3mg Take 3 mg [facility] mg Cap 1-07 by mouth ity of 00:00: at [place] [address] bedtime. Medical Branch VRAYLAR 3 2022-0 Yes 3mg Take 3 mg [facility] mg Cap 1-07 by mouth ity of 00:00: at [place] [address] bedtime. Medical Branch VRAYLAR 3 0 Yes 3mg Take 3 mg [facility] mg Cap 1-07 by mouth ity of 00:00: at [place] [address] bedtime. Medical Branch VRAYLAR 3 2022-0 Yes 3mg Take 3 mg [facility] mg Cap 1-07 by mouth ity of 00:00: at [place] [address] bedtime. Medical Branch VRAYLAR 3 2022-0 Yes 3mg Take 3 mg [facility] mg Cap 1-07 by mouth ity of 00:00: at [place] [address] bedtime. Medical Branch VRAYLAR 3 2022-0 Yes 3mg Take 3 mg [facility] mg Cap 1-07 by mouth ity of 00:00: at [place] [address] bedtime. Medical Branch VRAYLAR 3 2022-0 Yes 3mg Take 3 mg [facility] mg Cap 1-07 by mouth ity of 00:00: at [place] [address] bedtime. Medical Branch VRAYLAR 3 0 Yes 3mg Take 3 mg [facility] mg Cap 1-07 by mouth ity of 00:00: at [place] [address] bedtime. Medical Branch VRAYLAR 3 0 Yes 3mg Take 3 mg [facility] mg Cap 1-07 by mouth ity of 00:00: at [place] [address] bedtime. Medical Branch VRAYLAR 3 2022-0 Yes 3mg Take 3 mg [facility] mg Cap 1-07 by mouth ity of 00:00: at [place] [address] bedtime. Medical Branch VRAYLAR 3 0 Yes 3mg Take 3 mg [facility] mg Cap 1-07 by mouth ity of 00:00: at [place] [address] bedtime. Medical Branch VRAYLAR 3 0 Yes 3mg Take 3 mg [facility] mg Cap 1-07 by mouth ity of 00:00: at [place] [address] bedtime. Medical Branch VRAYLAR 3 0 Yes 3mg Take 3 mg [facility] mg Cap 1-07 by mouth ity of 00:00: at [place] [address] bedtime. Medical Branch VRAYLAR 3 0 Yes 3mg Take 3 mg [facility] mg Cap 1-07 by mouth ity of 00:00: at [place] [address] bedtime. Medical Branch VRAYLAR 3 0 Yes 3mg Take 3 mg [facility] mg Cap 1-07 by mouth ity of 00:00: at [place] [address] bedtime. Medical Branch VRAYLAR 3 0 Yes 3mg Take 3 mg [facility] mg Cap 1-07 by mouth ity of 00:00: at [place] [address] bedtime. Medical Branch VRAYLAR 3 0 Yes 3mg Take 3 mg [facility] mg Cap 1-07 by mouth ity of 00:00: at [place] [address] bedtime. Medical Branch VRAYLAR 3 0 Yes 3mg Take 3 mg [facility] mg Cap 1-07 by mouth ity of 00:00: at [place] [address] bedtime. Medical Branch VRAYLAR 3 0 Yes 3mg Take 3 mg [facility] mg Cap 1-07 by mouth ity of 00:00: at [place] [address] bedtime. Medical Branch VRAYLAR 3 0 Yes 3mg Take 3 mg [facility] mg Cap 1-07 by mouth ity of 00:00: at [place] [address] bedtime. Medical Branch VRAYLAR 3 2022-0 Yes 3mg Take 3 mg [facility] mg Cap 1-07 by mouth ity of 00:00: at [place] [address] bedtime. Medical Branch VRAYLAR 3 2022-0 Yes 3mg Take 3 mg [facility] mg Cap 1-07 by mouth ity of 00:00: at [place] [address] bedtime. Medical Branch VRAYLAR 3 2022-0 Yes 3mg Take 3 mg [facility] mg Cap 1-07 by mouth ity of 00:00: at [place] [address] bedtime. Medical Branch VRAYLAR 3 2022-0 Yes 3mg Take 3 mg [facility] mg Cap 1-07 by mouth ity of 00:00: at [place] [address] bedtime. Medical Branch VRAYLAR 3 0 Yes 3mg Take 3 mg [facility] mg Cap 1-07 by mouth ity of 00:00: at [place] [address] bedtime. Medical Branch VRAYLAR 3 2022-0 Yes 3mg Take 3 mg [facility] mg Cap 1-07 by mouth ity of 00:00: at [place] [address] bedtime. Medical Branch VRAYLAR 3 0 Yes 3mg Take 3 mg [facility] mg Cap 1-07 by mouth ity of 00:00: at [place] [address] bedtime. Medical Branch VRAYLAR 3 0 Yes 3mg Take 3 mg [facility] mg Cap 1-07 by mouth ity of 00:00: at [place] [address] bedtime. Medical Branch VRAYLAR 3 2022-0 Yes 3mg Take 3 mg [facility] mg Cap 1-07 by mouth ity of 00:00: at [place] [address] bedtime. Medical Branch VRAYLAR 3 0 Yes 3mg Take 3 mg [facility] mg Cap 1-07 by mouth ity of 00:00: at [place] [address] bedtime. Medical Branch VRAYLAR 3 2022-0 Yes 3mg Take 3 mg [facility] mg Cap 1-07 by mouth ity of 00:00: at [place] [address] bedtime. Medical Branch VRAYLAR 3 0 Yes 3mg Take 3 mg [facility] mg Cap 1-07 by mouth ity of 00:00: at [place] [address] bedtime. Medical Branch VRAYLAR 3 2022-0 Yes 3mg Take 3 mg [facility] mg Cap 1-07 by mouth ity of 00:00: at [place] [address] bedtime. Medical Branch VRAYLAR 3 2022-0 Yes 3mg Take 3 mg [facility] mg Cap 1-07 by mouth ity of 00:00: at [place] [address] bedtime. Medical Branch VRAYLAR 3 2022-0 Yes 3mg Take 3 mg [facility] mg Cap 1-07 by mouth ity of 00:00: at [place] [address] bedtime. Medical Branch VRAYLAR 3 2022-0 Yes 3mg Take 3 mg [facility] mg Cap 1-07 by mouth ity of 00:00: at [place] [address] bedtime. Medical Branch VRAYLAR 3 0 Yes 3mg Take 3 mg [facility] mg Cap 1-07 by mouth ity of 00:00: at [place] [address] bedtime. Medical Branch VRAYLAR 3 0 Yes 3mg Take 3 mg [facility] mg Cap 1-07 by mouth ity of 00:00: at [place] [address] bedtime. Medical Branch VRAYLAR 3 0 Yes 3mg Take 3 mg [facility] mg Cap 1-07 by mouth ity of 00:00: at [place] [address] bedtime. Medical Branch VRAYLAR 3 0 Yes 3mg Take 3 mg [facility] mg Cap 1-07 by mouth ity of 00:00: at [place] [address] bedtime. Medical Branch VRAYLAR 3 0 Yes 3mg Take 3 mg [facility] mg Cap 1-07 by mouth ity of 00:00: at [place] [address] bedtime. Medical Branch VRAYLAR 3 0 Yes 3mg Take 3 mg [facility] mg Cap 1-07 by mouth ity of 00:00: at [place] [address] bedtime. Medical Branch VRAYLAR 3 0 Yes 3mg Take 3 mg [facility] mg Cap 1-07 by mouth ity of 00:00: at [place] [address] bedtime. Medical Branch VRAYLAR 3 0 Yes 3mg Take 3 mg [facility] mg Cap 1-07 by mouth ity of 00:00: at [place] [address] bedtime. Medical Branch VRAYLAR 3 0 Yes 3mg Take 3 mg [facility] mg Cap 1-07 by mouth ity of 00:00: at [place] [address] bedtime. Medical Branch VRAYLAR 3 0 Yes 3mg Take 3 mg [facility] mg Cap 1-07 by mouth ity of 00:00: at [place] [address] bedtime. Medical Branch VRAYLAR 3 0 Yes 3mg Take 3 mg [facility] mg Cap 1-07 by mouth ity of 00:00: at [place] [address] bedtime. Medical Branch VRAYLAR 3 0 Yes 3mg Take 3 mg [facility] mg Cap 1-07 by mouth ity of 00:00: at [place] [address] bedtime. Medical Branch VRAYLAR 3 0 Yes 3mg Take 3 mg [facility] mg Cap 1-07 by mouth ity of 00:00: at [place] [address] bedtime. Medical Branch VRAYLAR 3 0 Yes 3mg Take 3 mg [facility] mg Cap 1-07 by mouth ity of 00:00: at [place] [address] bedtime. Medical Branch VRAYLAR 3 Yes 3mg Take 3 mg [facility] mg Cap 1-07 by mouth ity of 00:00: at [place] [address] bedtime. Medical Branch VRAYLAR 3 0 Yes 3mg Take 3 mg [facility] mg Cap 1-07 by mouth ity of 00:00: at [place] [address] bedtime. Medical Branch VRAYLAR 3 0 Yes 3mg Take 3 mg [facility] mg Cap 1-07 by mouth ity of 00:00: at [place] [address] bedtime. Medical Branch VRAYLAR 3 0 Yes 3mg Take 3 mg [facility] mg Cap 1-07 by mouth ity of 00:00: at [place] [address] bedtime. Medical Branch VRAYLAR 3 0 Yes 3mg Take 3 mg [facility] mg Cap 1-07 by mouth ity of 00:00: at [place] [address] bedtime. Medical Branch VRAYLAR 3 Yes 3mg Take 3 mg [facility] mg Cap 1-07 by mouth ity of 00:00: at [place] [address] bedtime. Medical Branch VRAYLAR 3 0 Yes 3mg Take 3 mg [facility] mg Cap 1-07 by mouth ity of 00:00: at [place] [address] bedtime. Medical Branch VRAYLAR 3 0 Yes 3mg Take 3 mg [facility] mg Cap 1-07 by mouth ity of 00:00: at [place] [address] bedtime. Medical Branch VRAYLAR 3 0 Yes 3mg Take 3 mg [facility] mg Cap 1-07 by mouth ity of 00:00: at [place] [address] bedtime. [facility] 3 Yes 3mg Take 3 mg [facility] mg Cap 1-07 by mouth ity of 00:00: at [place] [address] bedtime. Medical Branch VRAYVTR 3 Yes 3mg Take 3 mg [facility] mg Cap 1-07 by mouth ity of 00:00: at [place] [address] bedtime. [facility] 3 Yes 3mg Take 3 mg [facility] mg Cap 1-07 by mouth ity of 00:00: at [place] [address] bedtime. [facility] 3 Yes 3mg Take 3 mg [facility] mg Cap 1-07 by mouth ity of 00:00: at [place] [address] bedtime. [facility] 3 Yes 3mg Take 3 mg [facility] mg Cap 1-07 by mouth ity of 00:00: at [place] [address] bedtime. Medical Branch [facility] 3 Yes 3mg Take 3 mg [facility] vers mg Cap 1-07 by mouth ity of 00:00: at [place] [address] bedtime. [facility] 3 Yes 3mg Take 3 mg [facility] mg Cap 1-07 by mouth ity of 00:00: at [place] [address] bedtime. [facility] 3 2022- No 3mg Take 3 mg [place] mg Cap 07-25-05 by mouth ity of 00:00: 00:00 at [place] 00 :00 bedtime. [facility] 3 2022- No 3mg Take 3 mg [place] mg Cap 07-25-05 by mouth ity of 00:00: 00:00 at [place] 00 :00 bedtime. [facility] 3 2022- No 3mg Take 3 mg [place] mg Cap 07-25- by mouth ity of 00:00: 00:00 at [place] 00 :00 bedtime. Medical Branch levalbutero 2021-07 Yes [id number] INHALE 2 [facility] (XOPENEX 2-29 PUFFS BY ity o f HFA) 45 00:00: MOUTH [place] mcg/actuati 00 EVERY 6 Medic al on inhaler HOURS Branc h NEEDED BEFORE EXERCISE OR FOR WHEEZING/S HORTNESS OF BREATH. levalbutero 2021-07 Yes [id number] INHALE 2 [facility] (XOPENEX 2-29 PUFFS BY ity o f HFA) 45 00:00: MOUTH [place] mcg/actuati 00 EVERY 6 Medic al on inhaler HOURS Branc h NEEDED BEFORE EXERCISE OR FOR WHEEZING/S HORTNESS OF BREATH. levalbutero 2021-07 Yes [id number] INHALE 2 [facility] (XOPENEX 2-29 PUFFS BY ity o f HFA) 45 00:00: MOUTH [place] mcg/actuati 00 EVERY 6 Medic al on inhaler HOURS Branc h NEEDED BEFORE EXERCISE OR FOR WHEEZING/S HORTNESS OF BREATH. levalbutero 2021-07 Yes [id number] INHALE 2 [facility] (XOPENEX 2-29 PUFFS BY ity o f HFA) 45 00:00: MOUTH [place] mcg/actuati 00 EVERY 6 Medic al on inhaler HOURS Branc h NEEDED BEFORE EXERCISE OR FOR WHEEZING/S HORTNESS OF BREATH. levalbutero 2021-07 Yes [id number] INHALE 2 [facility] (XOPENEX 2-29 PUFFS BY ity o f HFA) 45 00:00: MOUTH [place] mcg/actuati 00 EVERY 6 Medic al on inhaler HOURS Branc h NEEDED BEFORE EXERCISE OR FOR WHEEZING/S HORTNESS OF BREATH. levalbutero 2021-07 Yes [id number] INHALE 2 [facility] (XOPENEX 2-29 PUFFS BY ity o f HFA) 45 00:00: MOUTH [place] mcg/actuati 00 EVERY 6 Medic al on inhaler HOURS Branc h NEEDED BEFORE EXERCISE OR FOR WHEEZING/S HORTNESS OF BREATH. levalbutero 2021-07 Yes [id number] INHALE 2 [facility] (XOPENEX 2-29 PUFFS BY ity o f HFA) 45 00:00: MOUTH [place] mcg/actuati 00 EVERY 6 Medic al on inhaler HOURS Branc h NEEDED BEFORE EXERCISE OR FOR WHEEZING/S HORTNESS OF BREATH. levalbutero 2021-07 Yes [id number] INHALE 2 [facility] (XOPENEX 2-29 PUFFS BY ity o f HFA) 45 00:00: MOUTH [place] mcg/actuati 00 EVERY 6 Medic al on inhaler HOURS Branc h NEEDED BEFORE EXERCISE OR FOR WHEEZING/S HORTNESS OF BREATH. levalbutero 2021-07 Yes [id number] INHALE 2 [facility] (XOPENEX 2-29 PUFFS BY ity o f HFA) 45 00:00: MOUTH [place] mcg/actuati 00 EVERY 6 Medic al on inhaler HOURS Branc h NEEDED BEFORE EXERCISE OR FOR WHEEZING/S HORTNESS OF BREATH. levalbutero 2021-07 Yes [id number] INHALE 2 [facility] (XOPENEX 2-29 PUFFS BY ity o f HFA) 45 00:00: MOUTH [place] mcg/actuati 00 EVERY 6 Medic al on inhaler HOURS Branc h NEEDED BEFORE EXERCISE OR FOR WHEEZING/S HORTNESS OF BREATH. levalbutero 2021-07- No [id number] INHALE 2 [facility] (XOPENEX 2-29 -31 PUFFS BY ity of HFA) 45 00:00: 00:00 MOUTH [place] mcg/actuati 00 :00 EVERY 6 Medic al on inhaler HOURS Branc h NEEDED BEFORE EXERCISE OR FOR WHEEZING/S HORTNESS OF BREATH. levalbutero 2021-07- No [id number] INHALE 2 [facility] (XOPENEX 2-29 -31 PUFFS BY ity of HFA) 45 00:00: 00:00 MOUTH [place] mcg/actuati 00 :00 EVERY 6 Medic al on inhaler HOURS Branc h NEEDED BEFORE EXERCISE OR FOR WHEEZING/S HORTNESS OF BREATH. levalbutero 2021-07- No [id number] INHALE 2 [facility] (XOPENEX 2-29 31 PUFFS BY ity of HFA) 45 00:00: 00:00 MOUTH [place] mcg/actuati 00 :00 EVERY 6 Medic al on inhaler HOURS Branc h NEEDED BEFORE EXERCISE OR FOR WHEEZING/S HORTNESS OF BREATH. ibuprofen 2021-07 Yes [id number] 800mg Take 1 [facility] 800 mg 2-25 tablet by ity of tablet 00:00: mouth [place] 00 every 8 Medical (eight) Branch hours as needed for Pain (scale 4-6) or Temp > 38.5 C. benzonatate 2021-07 Yes [id number] 200mg Take 1 [facility] 200 mg 2-25 capsule by ity of capsule 00:00: mouth 3 (three) Medical times Branch daily as needed for Cough. ibuprofen 2021-07 Yes [id number] 800mg Take 1 [facility] 800 mg 2-25 tablet by ity of tablet 00:00: mouth [place] 00 every 8 Medical (eight) Branch hours as needed for Pain (scale 4-6) or Temp > 38.5 C. benzonatate 2021-07 Yes [id number] 200mg Take 1 [facility] 200 mg 2-25 capsule by ity of capsule 00:00: mouth 3 (three) Medical times Branch daily as needed for Cough. ibuprofen 2021-07 Yes [id number] 800mg Take 1 [facility] 800 mg 2-25 tablet by ity of tablet 00:00: mouth [place] 00 every 8 Medical (eight) Branch hours as needed for Pain (scale 4-6) or Temp > 38.5 C. benzonatate 2021-07 Yes [id number] 200mg Take 1 [facility] 200 mg 2-25 capsule by ity of capsule 00:00: mouth (three) Medical times Branch daily as needed for Cough. ibuprofen 2021-07 Yes [id number] 800mg Take 1 [facility] 800 mg 2-25 tablet by ity of tablet 00:00: mouth [place] 00 every 8 Medical (eight) Branch hours as needed for Pain (scale 4-6) or Temp > 38.5 C. benzonatate 2021-07 Yes [id number] 200mg Take 1 [facility] 200 mg 2-25 capsule by ity of capsule 00:00: mouth (three) Medical times Branch daily as needed for Cough. ibuprofen 2021-07 Yes [id number] 800mg Take 1 [facility] 800 mg 2-25 tablet by ity of tablet 00:00: mouth [place] 00 every 8 Medical (eight) Branch hours as needed for Pain (scale 4-6) or Temp > 38.5 C. benzonatate 2021-07 Yes [id number] 200mg Take 1 [facility] 200 mg 2-25 capsule by ity of capsule 00:00: mouth 3 (three) Medical times Branch daily as needed for Cough. ibuprofen 2021-07 Yes [id number] 800mg Take 1 [facility] 800 mg 2-25 tablet by ity of tablet 00:00: mouth [place] 00 every 8 Medical (eight) Branch hours as needed for Pain (scale 4-6) or Temp > 38.5 C. benzonatate 2021-07 Yes [id number] 200mg Take 1 [facility] 200 mg 2-25 capsule by [facility] capsule 00:00: mouth 3 (three) Medical times Branch daily as needed for Cough. ibuprofen 2021-07 Yes [id number] 800mg Take 1 [facility] 800 mg 2-25 tablet by [facility] of tablet 00:00: mouth [place] 00 every 8 Medical (eight) Branch hours as needed for Pain (scale 4-6) or Temp > 38.5 C. benzonatate 2021-07 Yes [id number] 200mg Take 1 [facility] 200 mg 2-25 capsule by [facility] of capsule 00:00: mouth 3 (three) Medical times Branch daily as needed for Cough. ibuprofen 2021-07 Yes [id number] 800mg Take 1 [facility] 800 mg 2-25 tablet by [facility] of tablet 00:00: mouth [place] 00 every 8 Medical (eight) Branch hours as needed for Pain (scale 4-6) or Temp > 38.5 C. benzonatate 2021-07 Yes [id number] 200mg Take 1 [facility] 200 mg 2-25 capsule by ity of capsule 00:00: mouth 3 (three) Medical times Branch daily as needed for Cough. ibuprofen 2021-07 Yes [id number] 800mg Take 1 [facility] 800 mg 2-25 tablet by ity of tablet 00:00: mouth [place] 00 every 8 Medical (eight) Branch hours as needed for Pain (scale 4-6) or Temp > 38.5 C. benzonatate 2021-07 Yes [id number] 200mg Take 1 [facility] 200 mg 2-25 capsule by ity of capsule 00:00: mouth 3 (three) Medical times Branch daily as needed for Cough. ibuprofen 2021-07 Yes [id number] 800mg Take 1 [facility] 800 mg 2-25 tablet by ity of tablet 00:00: mouth [place] 00 every 8 Medical (eight) Branch hours as needed for Pain (scale 4-6) or Temp > 38.5 C. benzonatate 2021-07 Yes [id number] 200mg Take 1 [facility] 200 mg 2-25 capsule by ity of capsule 00:00: mouth 3 (three) Medical times Branch daily as needed for Cough. ibuprofen 2021-07 Yes [id number] 800mg Take 1 [facility] 800 mg 2-25 tablet by ity of tablet 00:00: mouth [place] 00 every 8 Medical (eight) Branch hours as needed for Pain (scale 4-6) or Temp > 38.5 C. benzonatate 2021-07 Yes [id number] 200mg Take 1 [facility] 200 mg 2-25 capsule by ity of capsule 00:00: mouth 3 [place] 00 (three) Medical times Branch daily as needed for Cough. ibuprofen 2021-07 Yes [id number] 800mg Take 1 [facility] 800 mg 2-25 tablet by ity of tablet 00:00: mouth [place] 00 every 8 Medical (eight) Branch hours as needed for Pain (scale 4-6) or Temp > 38.5 C. benzonatate 2021-07 Yes [id number] 200mg Take 1 [facility] 200 mg 2-25 capsule by ity of capsule 00:00: mouth 3 [place] 00 (three) Medical times Branch daily as needed for Cough. ibuprofen 2021-07 Yes [id number] 800mg Take 1 [facility] 800 mg 2-25 tablet by ity of tablet 00:00: mouth [place] 00 every 8 Medical (eight) Branch hours as needed for Pain (scale 4-6) or Temp > 38.5 C. ibuprofen 2021-07 Yes [id number] 800mg Take 1 [facility] 800 mg 2-25 tablet by ity of tablet 00:00: mouth [place] 00 every 8 Medical (eight) Branch hours as needed for Pain (scale 4-6) or Temp > 38.5 C. ibuprofen 2021-07 Yes [id number] 800mg Take 1 [facility] 800 mg 2-25 tablet by ity of tablet 00:00: mouth [place] 00 every 8 Medical (eight) Branch hours as needed for Pain (scale 4-6) or Temp > 38.5 C. ibuprofen 2021-07 Yes [id number] 800mg Take 1 [facility] 800 mg 2-25 tablet by ity of tablet 00:00: mouth [place] 00 every 8 Medical (eight) Branch hours as needed for Pain (scale 4-6) or Temp > 38.5 C. ibuprofen 2021-07 Yes [id number] 800mg Take 1 [facility] 800 mg 2-25 tablet by ity of tablet 00:00: mouth [place] 00 every 8 Medical (eight) Branch hours as needed for Pain (scale 4-6) or Temp > 38.5 C. ibuprofen 2021-07 Yes [id number] 800mg Take 1 [facility] 800 mg 2-25 tablet by ity of tablet 00:00: mouth [place] 00 every 8 Medical (eight) Branch hours as needed for Pain (scale 4-6) or Temp > 38.5 C. ibuprofen 2021-07 Yes [id number] 800mg Take 1 [facility] 800 mg 2-25 tablet by ity of tablet 00:00: mouth [place] 00 every 8 Medical (eight) Branch hours as needed for Pain (scale 4-6) or Temp > 38.5 C. ibuprofen 2021-07 Yes [id number] 800mg Take 1 [facility] 800 mg 2-25 tablet by ity of tablet 00:00: mouth [place] 00 every 8 Medical (eight) Branch hours as needed for Pain (scale 4-6) or Temp > 38.5 C. ibuprofen 2021-07 Yes [id number] 800mg Take 1 [facility] 800 mg 2-25 tablet by ity of tablet 00:00: mouth [place] 00 every 8 Medical (eight) Branch hours as needed for Pain (scale 4-6) or Temp > 38.5 C. ibuprofen 2021-07 Yes [id number] 800mg Take 1 [facility] 800 mg 2-25 tablet by ity of tablet 00:00: mouth [place] 00 every 8 Medical (eight) Branch hours as needed for Pain (scale 4-6) or Temp > 38.5 C. ibuprofen 2021-07 Yes [id number] 800mg Take 1 [facility] 800 mg 2-25 tablet by ity of tablet 00:00: mouth [place] 00 every 8 Medical (eight) Branch hours as needed for Pain (scale 4-6) or Temp > 38.5 C. ibuprofen 2021-07 Yes [id number] 800mg Take 1 [facility] 800 mg 2-25 tablet by ity of tablet 00:00: mouth [place] 00 every 8 Medical (eight) Branch hours as needed for Pain (scale 4-6) or Temp > 38.5 C. ibuprofen 2021-07 Yes [id number] 800mg Take 1 [facility] 800 mg 2-25 tablet by ity of tablet 00:00: mouth [place] 00 every 8 Medical (eight) Branch hours as needed for Pain (scale 4-6) or Temp > 38.5 C. ibuprofen 2021-07 Yes [id number] 800mg Take 1 [facility] 800 mg 2-25 tablet by ity of tablet 00:00: mouth [place] 00 every 8 Medical (eight) Branch hours as needed for Pain (scale 4-6) or Temp > 38.5 C. ibuprofen 2021-07 Yes [id number] 800mg Take 1 [facility] 800 mg 2-25 tablet by ity of tablet 00:00: mouth [place] 00 every 8 Medical (eight) Branch hours as needed for Pain (scale 4-6) or Temp > 38.5 C. ibuprofen 2021-07 Yes [id number] 800mg Take 1 [facility] 800 mg 2-25 tablet by ity of tablet 00:00: mouth [place] 00 every 8 Medical (eight) Branch hours as needed for Pain (scale 4-6) or Temp > 38.5 C. ibuprofen 2021-07 Yes [id number] 800mg Take 1 [facility] 800 mg 2-25 tablet by ity of tablet 00:00: mouth [place] 00 every 8 Medical (eight) Branch hours as needed for Pain (scale 4-6) or Temp > 38.5 C. ibuprofen 2021-07 Yes [id number] 800mg Take 1 [facility] 800 mg 2-25 tablet by ity of tablet 00:00: mouth [place] 00 every 8 Medical (eight) Branch hours as needed for Pain (scale 4-6) or Temp > 38.5 C. ibuprofen 2021-07 Yes [id number] 800mg Take 1 [facility] 800 mg 2-25 tablet by ity of tablet 00:00: mouth [place] 00 every 8 Medical (eight) Branch hours as needed for Pain (scale 4-6) or Temp > 38.5 C. ibuprofen 2021-07 Yes [id number] 800mg Take 1 [facility] 800 mg 2-25 tablet by ity of tablet 00:00: mouth [place] 00 every 8 Medical (eight) Branch hours as needed for Pain (scale 4-6) or Temp > 38.5 C. ibuprofen 2021-07 Yes [id number] 800mg Take 1 [facility] 800 mg 2-25 tablet by ity of tablet 00:00: mouth [place] 00 every 8 Medical (eight) Branch hours as needed for Pain (scale 4-6) or Temp > 38.5 C. ibuprofen 2021-07 Yes [id number] 800mg Take 1 [facility] 800 mg 2-25 tablet by ity of tablet 00:00: mouth [place] 00 every 8 Medical (eight) Branch hours as needed for Pain (scale 4-6) or Temp > 38.5 C. ibuprofen 2021-07 Yes [id number] 800mg Take 1 [facility] 800 mg 2-25 tablet by ity of tablet 00:00: mouth [place] 00 every 8 Medical (eight) Branch hours as needed for Pain (scale 4-6) or Temp > 38.5 C. ibuprofen 2021-07 Yes [id number] 800mg Take 1 [facility] 800 mg 2-25 tablet by ity of tablet 00:00: mouth [place] 00 every 8 Medical (eight) Branch hours as needed for Pain (scale 4-6) or Temp > 38.5 C. ibuprofen 2021-07 Yes [id number] 800mg Take 1 [facility] 800 mg 2-25 tablet by ity of tablet 00:00: mouth [place] 00 every 8 Medical (eight) Branch hours as needed for Pain (scale 4-6) or Temp > 38.5 C. ibuprofen 2021-07 Yes [id number] 800mg Take 1 [facility] 800 mg 2-25 tablet by ity of tablet 00:00: mouth [place] 00 every 8 Medical (eight) Branch hours as needed for Pain (scale 4-6) or Temp > 38.5 C. ibuprofen 2021-07 Yes [id number] 800mg Take 1 [facility] 800 mg 2-25 tablet by ity of tablet 00:00: mouth [place] 00 every 8 Medical (eight) Branch hours as needed for Pain (scale 4-6) or Temp > 38.5 C. ibuprofen 2021-07 Yes [id number] 800mg Take 1 [facility] 800 mg 2-25 tablet by ity of tablet 00:00: mouth [place] 00 every 8 Medical (eight) Branch hours as needed for Pain (scale 4-6) or Temp > 38.5 C. ibuprofen 2021-07 Yes [id number] 800mg Take 1 [facility] 800 mg 2-25 tablet by ity of tablet 00:00: mouth [place] 00 every 8 Medical (eight) Branch hours as needed for Pain (scale 4-6) or Temp > 38.5 C. ibuprofen 2021-07 Yes [id number] 800mg Take 1 [facility] 800 mg 2-25 tablet by ity of tablet 00:00: mouth [place] 00 every 8 Medical (eight) Branch hours as needed for Pain (scale 4-6) or Temp > 38.5 C. ibuprofen 2021-07 Yes [id number] 800mg Take 1 [facility] 800 mg 2-25 tablet by ity of tablet 00:00: mouth [place] 00 every 8 Medical (eight) Branch hours as needed for Pain (scale 4-6) or Temp > 38.5 C. ibuprofen 2021-07 Yes [id number] 800mg Take 1 [facility] 800 mg 2-25 tablet by ity of tablet 00:00: mouth [place] 00 every 8 Medical (eight) Branch hours as needed for Pain (scale 4-6) or Temp > 38.5 C. ibuprofen 2021-07 Yes [id number] 800mg Take 1 [facility] 800 mg 2-25 tablet by ity of tablet 00:00: mouth [place] 00 every 8 Medical (eight) Branch hours as needed for Pain (scale 4-6) or Temp > 38.5 C. ibuprofen 2021-07- No [id number] 800mg Take 1 [facility] 800 mg 2-25 04-11 tablet by ity of tablet 00:00: 00:00 mouth [place] 00 :00 every 8 Medical (eight) Branch hours as needed for Pain (scale 4-6) or Temp > 38.5 C. benzonatate 2021-07- No [id number] 200mg Take 1 [facility] 200 mg 2-25 - capsule by ity of capsule 00:00: 00:00 mouth 3 [place] 00 :00 (three) Medical times Branch daily as needed for Cough. benzonatate 2021-07- No [id number] 200mg Take 1 [facility] 200 mg 2-25 - capsule by ity of capsule 00:00: 00:00 mouth 3 [place] 00 :00 (three) Medical times Branch daily as needed for Cough. benzonatate 2021-07- No [id number] 200mg Take 1 [facility] 200 mg 2-25 - capsule by ity of capsule 00:00: 00:00 mouth 3 [place] 00 :00 (three) Medical times Branch daily as needed for Cough. dexamethaso 2021-07 Yes [id number] 12mg Take 120 [facility] ne 0.1 2-22 mL by ity of mg/mL LOW 00:00: mouth in [place] [facility] 00 the Medical ON solution morning. Bran ch dexamethaso 2021-07 Yes [id number] 12mg Take 120 [facility] ne 0.1 2-22 mL by ity of mg/mL LOW 00:00: mouth [place] [facility] 00 the Medical ON solution morning. Volodymyr anderson dexamethaso 2021-07 Yes [id number] 12mg Take 120 [facility] ne 0.1 2-22 mL by ity of mg/mL LOW 00:00: mouth [place] [facility] 00 the Medical ON solution morning. Volodymyr anderson dexamethaso 2021-07 Yes [id number] 12mg Take 120 [facility] ne 0.1 2-22 mL by ity of mg/mL LOW 00:00: mouth [place] [facility] 00 the Medical ON solution morning. Volodymyr anderson dexamethaso 2021-07 Yes [id number] 12mg Take 120 [facility] ne 0.1 2-22 mL by ity of mg/mL LOW 00:00: mouth [place] [facility] 00 the Medical ON solution morning. Volodymyr anderson dexamethaso 2021-07 Yes [id number] 12mg Take 120 [facility] ne 0.1 2-22 mL by ity of mg/mL LOW 00:00: mouth [place] [facility] 00 the Medical ON solution morning. Volodymyr anderson dexamethaso 2021-07 Yes [id number] 12mg Take 120 [facility] ne 0.1 2-22 mL by ity of mg/mL LOW 00:00: mouth [place] [facility] 00 the Medical ON solution morning. Volodymyr anderson dexamethaso 2021-07 Yes [id number] 12mg Take 120 [facility] ne 0.1 2-22 mL by ity of mg/mL LOW 00:00: mouth [place] [facility] 00 the Medical ON solution morning. Volodymyr anderson dexamethaso 2021-07 Yes [id number] 12mg Take 120 [facility] ne 0.1 2-22 mL by ity of mg/mL LOW 00:00: mouth [place] [facility] 00 the Medical ON solution morning. Volodymyr adnerson dexamethaso 2021-07 Yes [id number] 12mg Take 120 [facility] ne 0.1 2-22 mL by ity of mg/mL LOW 00:00: mouth [place] [facility] 00 the Medical ON solution morning. Volodymyr anderson dexamethaso 2021-07 Yes [id number] 12mg Take 120 [facility] ne 0.1 2-22 mL by ity of mg/mL LOW 00:00: mouth [place] [facility] 00 the Medical ON solution morning. Volodymyr anderson dexamethaso 2021-07 Yes [id number] 12mg Take 120 [facility] ne 0.1 2-22 mL by ity of mg/mL LOW 00:00: mouth [place] [facility] 00 the Medical ON solution morning. Volodymyr anderson dexamethaso 2021-07 Yes [id number] 12mg Take 120 [facility] ne 0.1 2-22 mL by ity of mg/mL LOW 00:00: mouth [place] [facility] 00 the Medical ON solution morning. Volodymyr anderson dexamethaso 2021-07- No [id number] 12mg Take 120 [facility] ne 0.1 2-22 01-31 mL by ity of mg/mL LOW 00:00: 00:00 mouth in [place] as [facility] 00 :00 the Medical ON solution morning. Volodymyr anderson dexamethaso 2021-07- No [id number] 12mg Take 120 [facility] ne 0.1 2-22 01-31 mL by ity of mg/mL LOW 00:00: 00:00 mouth in [place] as [facility]AT[facility] 00 :00 the Medical ON solution morning. Volodymyr anderson dexamethaso 2021-07- No [id number] 12mg Take 120 [facility] ne 0.1 2-22 01-31 mL by ity of mg/mL LOW 00:00: 00:00 mouth in [place] as CON[facility] 00 :00 the Medical ON solution morning. Bran ch ARIPiprazol 2021-07 Yes by [facility] e (ABILIFY 2-[address] [facility]) 09:02: lar route [place] as 300 mg sers 43 once every Me dical month. Branch ARIPiprazol 2021-07 Yes by [facility] e (ABILIFY 2-05 [facility]) 09:02: lar route [place] as 300 mg sers 43 once every Me dical month. Branch ARIPiprazol 2021-07 Yes by Univer s e (ABILIFY 2-[address] [facility]) 09:02: lar route [place] as 300 [...] s e (ABILIFY 2-05 [facility]) 09:02: lar route [place] as 300 mg sers 43 once every Me dical month. Branch ARIPiprazol 2021-07 Yes by [facility] e (ABILIFY 2-05 [facility]) 09:02: lar route [place] as 300 mg sers 43 once every Me dical month. Branch ARIPiprazol 2021-07 Yes by [facility] e (ABILIFY 2-05 [facility]) 09:02: lar route [place] as 300 mg sers 43 once every Me dical month. Branch ARIPiprazol 2021-07 Yes by [facility] s e (ABILIFY 2-[address] [facility]) 09:02: lar route [place] as 300 mg sers 43 once every Me dical month. Branch ARIPiprazol 2021-07 Yes by [facility]iver s e (ABILIFY 2-05 [facility]) 09:02: lar route [place] as 300 mg sers 43 once every Me dical month. Branch budesonide- 2021-07 Yes [id number] 2{puff} Inhale 2 [facility] formoteroL 2-05 Puffs in ity o f (SYMBICORT) 00:00: the [place] 160-4.5 00 morning Medical mcg/actuati and 2 Branch on inhaler Puffs in the evening. tiotropium 2021-07 Yes [id number] 1{puff} Inhale 1 [facility] bromide 2-05 Puff ity of (SPIRIVA 00:00: daily. [place] RESPIMAT) 00 Medical 2.5 Branch mcg/actuati on Mist budesonide- 2021-07 Yes [id number] 2{puff} Inhale 2 [facility] formoteroL 2-05 Puffs in ity o f (SYMBICORT) 00:00: the [place] 160-4.5 00 morning Medical mcg/actuati and 2 Branch on inhaler Puffs in the evening. tiotropium 2021-07 Yes [id number] 1{puff} Inhale 1 [facility] bromide 2-05 Puff ity of (SPIRIVA 00:00: daily. [place] RESPIMAT) 00 Medical 2.5 Branch mcg/actuati on Mist budesonide- 2021-07 Yes [id number] 2{puff} Inhale 2 [facility] formoteroL 2-05 Puffs in ity o f (SYMBICORT) 00:00: the [place] 160-4.5 00 morning Medical mcg/actuati and 2 Branch on inhaler Puffs in the evening. tiotropium 2021-07 Yes [id number] 1{puff} Inhale 1 [facility] bromide 2-05 Puff ity of (SPIRIVA 00:00: daily. [place] RESPIMAT) 00 Medical 2.5 Branch mcg/actuati on Mist budesonide- 2021-07 Yes [id number] 2{puff} Inhale 2 [facility] formoteroL 2-05 Puffs in ity o f (SYMBICORT) 00:00: the [place] 160-4.5 00 morning Medical mcg/actuati and 2 Branch on inhaler Puffs in the evening. tiotropium 2021-07 Yes [id number] 1{puff} Inhale 1 [facility] bromide 2-05 Puff ity of (SPIRIVA 00:00: daily. [place] RESPIMAT) 00 Medical 2.5 Branch mcg/actuati on Mist budesonide- 2021-07 Yes [id number] 2{puff} Inhale 2 [facility] formoteroL 2-05 Puffs in ity o f (SYMBICORT) 00:00: the [place] 160-4.5 00 morning Medical mcg/actuati and 2 Branch on inhaler Puffs in the evening. tiotropium 2021-07 Yes [id number] 1{puff} Inhale 1 [facility] bromide 2-05 Puff ity of (SPIRIVA 00:00: daily. [place] RESPIMAT) 00 Medical 2.5 Branch mcg/actuati on Mist budesonide- 2021-07 Yes [id number] 2{puff} Inhale 2 [facility] formoteroL 2-05 Puffs in ity o f (SYMBICORT) 00:00: the [place] 160-4.5 00 morning Medical mcg/actuati and 2 Branch on inhaler Puffs in the evening. tiotropium 2021-07 Yes [id number] 1{puff} Inhale 1 [facility] bromide 2-05 Puff ity of (SPIRIVA 00:00: daily. [place] RESPIMAT) 00 Medical 2.5 Branch mcg/actuati on Mist budesonide- 2021-07 Yes [id number] 2{puff} Inhale 2 [facility] formoteroL 2-05 Puffs in ity o f (SYMBICORT) 00:00: the [place] 160-4.5 00 morning Medical mcg/actuati and 2 Branch on inhaler Puffs in the evening. tiotropium 2021-07 Yes [id number] 1{puff} Inhale 1 [facility] bromide 2-05 Puff ity of (SPIRIVA 00:00: daily. [place] RESPIMAT) 00 Medical 2.5 Branch mcg/actuati on Mist budesonide- 2021-07 Yes [id number] 2{puff} Inhale 2 [facility] formoteroL 2-05 Puffs in ity o f (SYMBICORT) 00:00: the [place] 160-4.5 00 morning Medical mcg/actuati and 2 Branch on inhaler Puffs in the evening. tiotropium 2021-07 Yes [id number] 1{puff} Inhale 1 [facility] bromide 2-05 Puff ity of (SPIRIVA 00:00: daily. [place] RESPIMAT) 00 Medical 2.5 Branch mcg/actuati on Mist budesonide- 2021-07 Yes [id number] 2{puff} Inhale 2 [facility] formoteroL 2-05 Puffs in ity o f (SYMBICORT) 00:00: the [place] 160-4.5 00 morning Medical mcg/actuati and 2 Branch on inhaler Puffs in the evening. tiotropium 2021-07 Yes [id number] 1{puff} Inhale 1 [facility] bromide 2-05 Puff ity of (SPIRIVA 00:00: daily. [place] RESPIMAT) 00 Medical 2.5 Branch mcg/actuati on Mist budesonide- 2021-07 Yes [id number] 2{puff} Inhale 2 [facility] formoteroL 2-05 Puffs in ity o f (SYMBICORT) 00:00: the [place] 160-4.5 00 morning Medical mcg/actuati and 2 Branch on inhaler Puffs in the evening. tiotropium 2021-07 Yes [id number] 1{puff} Inhale 1 [facility] bromide 2-05 Puff ity of (SPIRIVA 00:00: daily. [place] RESPIMAT) 00 Medical 2.5 Branch mcg/actuati on Mist budesonide- 2021-07 Yes [id number] 2{puff} Inhale 2 [facility] formoteroL 2-05 Puffs in ity o f (SYMBICORT) 00:00: the [place] 160-4.5 00 morning Medical mcg/actuati and 2 Branch on inhaler Puffs in the evening. tiotropium 2021-07 Yes [id number] 1{puff} Inhale 1 [facility] bromide 2-05 Puff ity of (SPIRIVA 00:00: daily. [place] RESPIMAT) 00 Medical 2.5 Branch mcg/actuati on Mist budesonide- 2021-07 Yes [id number] 2{puff} Inhale 2 [facility] formoteroL 2-05 Puffs in ity o f (SYMBICORT) 00:00: the [place] 160-4.5 00 morning Medical mcg/actuati and 2 Branch on inhaler Puffs in the evening. tiotropium 2021-07 Yes [id number] 1{puff} Inhale 1 [facility] bromide 2-05 Puff ity of (SPIRIVA 00:00: daily. [place] RESPIMAT) 00 Medical 2.5 Branch mcg/actuati on Mist budesonide- 2021-07 Yes [id number] 2{puff} Inhale 2 [facility] formoteroL 2-05 Puffs in ity o f (SYMBICORT) 00:00: the [place] 160-4.5 00 morning Medical mcg/actuati and 2 Branch on inhaler Puffs in the evening. tiotropium 2021-07 Yes [id number] 1{puff} Inhale 1 [facility] bromide 2-05 Puff ity of (SPIRIVA 00:00: daily. [place] RESPIMAT) 00 Medical 2.5 Branch mcg/actuati on Mist budesonide- 2021-07 Yes [id number] 2{puff} Inhale 2 [facility] formoteroL 2-05 Puffs in ity o f (SYMBICORT) 00:00: the [place] 160-4.5 00 morning Medical mcg/actuati and 2 Branch on inhaler Puffs in the evening. tiotropium 2021-07 Yes [id number] 1{puff} Inhale 1 [facility] bromide 2-05 Puff ity of (SPIRIVA 00:00: daily. [place] RESPIMAT) 00 Medical 2.5 Branch mcg/actuati on Mist budesonide- 2021-07 Yes [id number] 2{puff} Inhale 2 [facility] formoteroL 2-05 Puffs in ity o f (SYMBICORT) 00:00: the [place] 160-4.5 00 morning Medical mcg/actuati and 2 Branch on inhaler Puffs in the evening. tiotropium 2021-07 Yes [id number] 1{puff} Inhale 1 [facility] bromide 2-05 Puff ity of (SPIRIVA 00:00: daily. [place] RESPIMAT) 00 Medical 2.5 Branch mcg/actuati on Mist budesonide- 2021-07 Yes [id number] 2{puff} Inhale 2 [facility] formoteroL 2-05 Puffs in ity o f (SYMBICORT) 00:00: the [place] 160-4.5 00 morning Medical mcg/actuati and 2 Branch on inhaler Puffs in the evening. tiotropium 2021-07 Yes [id number] 1{puff} Inhale 1 [facility] bromide 2-05 Puff ity of (SPIRIVA 00:00: daily. [place] RESPIMAT) 00 Medical 2.5 Branch mcg/actuati on Mist budesonide- 2021-07 Yes [id number] 2{puff} Inhale 2 [facility] formoteroL 2-05 Puffs in ity o f (SYMBICORT) 00:00: the [place] 160-4.5 00 morning Medical mcg/actuati and 2 Branch on inhaler Puffs in the evening. tiotropium 2021-07 Yes [id number] 1{puff} Inhale 1 [facility] bromide 2-05 Puff ity of (SPIRIVA 00:00: daily. [place] RESPIMAT) 00 Medical 2.5 Branch mcg/actuati on Mist budesonide- 2021-07 Yes [id number] 2{puff} Inhale 2 [facility] formoteroL 2-05 Puffs in ity o f (SYMBICORT) 00:00: the [place] 160-4.5 00 morning Medical mcg/actuati and 2 Branch on inhaler Puffs in the evening. tiotropium 2021-07 Yes [id number] 1{puff} Inhale 1 [facility] bromide 2-05 Puff ity of (SPIRIVA 00:00: daily. [place] RESPIMAT) 00 Medical 2.5 Branch mcg/actuati on Mist budesonide- 2021-07 Yes [id number] 2{puff} Inhale 2 [facility] formoteroL 2-05 Puffs in ity o f (SYMBICORT) 00:00: the [place] 160-4.5 00 morning Medical mcg/actuati and 2 Branch on inhaler Puffs in the evening. tiotropium 2021-07 Yes [id number] 1{puff} Inhale 1 [facility] bromide 2-05 Puff ity of (SPIRIVA 00:00: daily. [place] RESPIMAT) 00 Medical 2.5 Branch mcg/actuati on Mist methocarbam 2021-07 Yes TAKE 1 Univ ers oL 750 mg 2-05 TABLET BY ity o f tablet 00:00: MOUTH [place] [address] EVERY DAY Medical NEEDED Branch budesonide- 2021-07 Yes [id number] 2{puff} Inhale 2 [facility] formoteroL 2-05 Puffs in ity o f (SYMBICORT) 00:00: the [place] 160-4.5 00 morning Medical mcg/actuati and 2 Branch on inhaler Puffs in the evening. tiotropium 2021-07 Yes [id number] 1{puff} Inhale 1 [facility] bromide 2-05 Puff ity of (SPIRIVA 00:00: daily. [place] RESPIMAT) 00 Medical 2.5 Branch mcg/actuati on Mist methocarbam 2021-07 Yes TAKE 1 Univ ers oL 750 mg 2-05 TABLET BY ity o f tablet 00:00: MOUTH [place] 00 EVERY DAY Medical NEEDED Branch budesonide- 2021-07 Yes [id number] 2{puff} Inhale 2 [facility] formoteroL 2-05 Puffs in ity o f (SYMBICORT) 00:00: the [place] 160-4.5 00 morning Medical mcg/actuati and 2 Branch on inhaler Puffs in the evening. tiotropium 2021-07 Yes [id number] 1{puff} Inhale 1 [facility] bromide 2-05 Puff ity of (SPIRIVA 00:00: daily. [place] RESPIMAT) 00 Medical 2.5 Branch mcg/actuati on Mist methocarbam 2021-07 Yes TAKE 1 Univ ers oL 750 mg 2-05 TABLET BY ity o f tablet 00:00: MOUTH [place] 00 EVERY DAY Medical NEEDED Branch budesonide- 2021-07 Yes [id number] 2{puff} Inhale 2 [facility] formoteroL 2-05 Puffs in ity o f (SYMBICORT) 00:00: the [place] 160-4.5 00 morning Medical mcg/actuati and 2 Branch on inhaler Puffs in the evening. tiotropium 2021-07 Yes [id number] 1{puff} Inhale 1 [facility] bromide 2-05 Puff ity of (SPIRIVA 00:00: daily. [place] RESPIMAT) Medical 2.5 Branch mcg/actuati on Mist methocarbam 2021-07 Yes TAKE 1 Univ ers oL 750 mg 2-05 TABLET BY ity o f tablet 00:00: MOUTH [place] 00 EVERY DAY Medical NEEDED Branch budesonide- 2021-07 Yes [id number] 2{puff} Inhale 2 [facility] formoteroL 2-05 Puffs in ity o f (SYMBICORT) 00:00: the [place] 160-4.5 00 morning Medical mcg/actuati and 2 Branch on inhaler Puffs in the evening. tiotropium 2021-07 Yes [id number] 1{puff} Inhale 1 [facility] bromide 2-05 Puff ity of (SPIRIVA 00:00: daily. [place] RESPIMAT) 00 Medical 2.5 Branch mcg/actuati on Mist budesonide- 2021-07 Yes [id number] 2{puff} Inhale 2 [facility] formoteroL 2-05 Puffs in ity o f (SYMBICORT) 00:00: the [place] 160-4.5 00 morning Medical mcg/actuati and 2 Branch on inhaler Puffs in the evening. tiotropium 2021-07 Yes [id number] 1{puff} Inhale 1 [facility] bromide 2-05 Puff ity of (SPIRIVA 00:00: daily. [place] RESPIMAT) 00 Medical 2.5 Branch mcg/actuati on Mist budesonide- 2021-07 Yes [id number] 2{puff} Inhale 2 [facility] formoteroL 2-05 Puffs in ity o f (SYMBICORT) 00:00: the [place] 160-4.5 00 morning Medical mcg/actuati and 2 Branch on inhaler Puffs in the evening. tiotropium 2021-07 Yes [id number] 1{puff} Inhale 1 [facility] bromide 2-05 Puff ity of (SPIRIVA 00:00: daily. [place] RESPIMAT) 00 Medical 2.5 Branch mcg/actuati on Mist budesonide- 2021-07 Yes [id number] 2{puff} Inhale 2 [facility] formoteroL 2-05 Puffs in ity o f (SYMBICORT) 00:00: the [place] 160-4.5 00 morning Medical mcg/actuati and 2 Branch on inhaler Puffs in the evening. tiotropium 2021-07 Yes [id number] 1{puff} Inhale 1 [facility] bromide 2-05 Puff ity of (SPIRIVA 00:00: daily. [place] RESPIMAT) 00 Medical 2.5 Branch mcg/actuati on Mist methocarbam 2021-07 Yes TAKE 1 Univ ers oL 750 mg 2-05 TABLET BY ity o f tablet 00:00: MOUTH [place] 00 EVERY DAY Medical NEEDED Branch budesonide- 2021-07 Yes [id number] 2{puff} Inhale 2 [facility] formoteroL 2-05 Puffs in ity o f (SYMBICORT) 00:00: the [place] 160-4.5 00 morning Medical mcg/actuati and 2 Branch on inhaler Puffs in the evening. tiotropium 2021-07 Yes [id number] 1{puff} Inhale 1 [facility] bromide 2-05 Puff ity of (SPIRIVA 00:00: daily. [place] RESPIMAT) 00 Medical 2.5 Branch mcg/actuati on Mist methocarbam 2021-07 Yes TAKE 1 Univ ers oL 750 mg 2-05 TABLET BY ity o f tablet 00:00: MOUTH [place] 00 EVERY DAY Medical NEEDED Branch budesonide- 2021-07 Yes [id number] 2{puff} Inhale 2 [facility] formoteroL 2-05 Puffs in ity o f (SYMBICORT) 00:00: the [place] 160-4.5 00 morning Medical mcg/actuati and 2 Branch on inhaler Puffs in the evening. tiotropium 2021-07 Yes [id number] 1{puff} Inhale 1 [facility] bromide 2-05 Puff ity of (SPIRIVA 00:00: daily. [place] RESPIMAT) 00 Medical 2.5 Branch mcg/actuati on Mist methocarbam 2021-07 Yes TAKE 1 Univ ers oL 750 mg 2-05 TABLET BY ity o f tablet 00:00: MOUTH [place] 00 EVERY DAY Medical NEEDED Branch budesonide- 2021-07 Yes [id number] 2{puff} Inhale 2 Univers formoteroL 2-05 Puffs in ity o f (SYMBICORT) 00:00: the [place] 160-4.5 00 morning Medical mcg/actuati and 2 Branch on inhaler Puffs in the evening. tiotropium 2021-07 Yes [id number] 1{puff} Inhale 1 [facility] bromide 2-05 Puff ity of (SPIRIVA 00:00: daily. [place] RESPIMAT) 00 Medical 2.5 Branch mcg/actuati on Mist methocarbam 2021-07 Yes TAKE 1 Univ ers oL 750 mg 2-05 TABLET BY ity o f tablet 00:00: MOUTH [place] 00 EVERY DAY Medical NEEDED Branch budesonide- 2021-07 Yes [id number] 2{puff} Inhale 2 Univers formoteroL 2-05 Puffs in ity o f (SYMBICORT) 00:00: the [place] 160-4.5 00 morning Medical mcg/actuati and 2 Branch on inhaler Puffs in the evening. tiotropium 2021-07 Yes [id number] 1{puff} Inhale 1 [facility] bromide 2-05 Puff ity of (SPIRIVA 00:00: daily. [place] RESPIMAT) 00 Medical 2.5 Branch mcg/actuati on Mist methocarbam 2021-07 Yes TAKE 1 Univ ers oL 750 mg 2-05 TABLET BY ity o f tablet 00:00: MOUTH [place] 00 EVERY DAY Medical NEEDED Branch budesonide- 2021-07 Yes [id number] 2{puff} Inhale 2 Univers formoteroL 2-05 Puffs in ity o f (SYMBICORT) 00:00: the [place] 160-4.5 00 morning Medical mcg/actuati and 2 Branch on inhaler Puffs in the evening. tiotropium 2021-07 Yes [id number] 1{puff} Inhale 1 [facility] bromide 2-05 Puff ity of (SPIRIVA 00:00: daily. [place] RESPIMAT) 00 Medical 2.5 Branch mcg/actuati on Mist methocarbam 2021-07 Yes TAKE 1 Univ ers oL 750 mg 2-05 TABLET BY ity o f tablet 00:00: MOUTH [place] 00 EVERY DAY Medical NEEDED Branch budesonide- 2021-07 Yes [id number] 2{puff} Inhale 2 Univers formoteroL 2-05 Puffs in ity o f (SYMBICORT) 00:00: the [place] 160-4.5 00 morning Medical mcg/actuati and 2 Branch on inhaler Puffs in the evening. tiotropium 2021-07 Yes [id number] 1{puff} Inhale 1 [facility] bromide 2-05 Puff ity of (SPIRIVA 00:00: daily. [place] RESPIMAT) 00 Medical 2.5 Branch mcg/actuati on Mist methocarbam 2021-07 Yes TAKE 1 Univ ers oL 750 mg 2-05 TABLET BY ity o f tablet 00:00: MOUTH [place] [address] EVERY DAY Medical NEEDED Branch budesonide- 2021-07 Yes [id number] 2{puff} Inhale 2 [facility] formoteroL 2-05 Puffs in ity o f (SYMBICORT) 00:00: the [place] 160-4.5 00 morning Medical mcg/actuati and 2 Branch on inhaler Puffs in the evening. tiotropium 2021-07 Yes [id number] 1{puff} Inhale 1 [facility] bromide 2-05 Puff ity of (SPIRIVA 00:00: daily. [place] RESPIMAT) 00 Medical 2.5 Branch mcg/actuati on Mist methocarbam 2021-07 Yes TAKE 1 Univ ers oL 750 mg 2-05 TABLET BY ity o f tablet 00:00: MOUTH [place] [address] EVERY DAY Medical NEEDED Branch budesonide- 2021-07 Yes [id number] 2{puff} Inhale 2 [facility] formoteroL 2-05 Puffs in ity o f (SYMBICORT) 00:00: the [place] 160-4.5 00 morning Medical mcg/actuati and 2 Branch on inhaler Puffs in the evening. tiotropium 2021-07 Yes [id number] 1{puff} Inhale 1 [facility] bromide 2-05 Puff ity of (SPIRIVA 00:00: daily. [place] RESPIMAT) 00 Medical 2.5 Branch mcg/actuati on Mist budesonide- 2021-07 Yes [id number] 2{puff} Inhale 2 [facility] formoteroL 2-05 Puffs in ity o f (SYMBICORT) 00:00: the [place] 160-4.5 00 morning Medical mcg/actuati and 2 Branch on inhaler Puffs in the evening. tiotropium 2021-07 Yes [id number] 1{puff} Inhale 1 [facility] bromide 2-05 Puff ity of (SPIRIVA 00:00: daily. [place] RESPIMAT) 00 Medical 2.5 Branch mcg/actuati on Mist methocarbam 2021-07 Yes TAKE 1 Univ ers oL 750 mg 2-05 TABLET BY ity o f tablet 00:00: [facility] 00 EVERY DAY Medical NEEDED Branch methocarbam 2021-07 Yes TAKE 1 Univ ers oL 750 mg 2-05 TABLET BY ity o f tablet 00:00: [facility] 00 EVERY DAY Medical NEEDED Branch methocarbam 2021-07 Yes TAKE 1 Univ ers oL 750 mg 2-05 TABLET BY ity o f tablet 00:00: [facility] 00 EVERY DAY Medical NEEDED Branch methocarbam 2021-07 Yes TAKE 1 Univ ers oL 750 mg 2-05 TABLET BY ity o f tablet 00:00: [facility] 00 EVERY DAY Medical NEEDED Branch methocarbam 2021-07 Yes TAKE 1 Univ ers oL 750 mg 2-05 TABLET BY ity o f tablet 00:00: [facility] 00 EVERY DAY Medical NEEDED Branch methocarbam 2021-07 Yes TAKE 1 Univ ers oL 750 mg 2-05 TABLET BY ity o f tablet 00:00: [facility] 00 EVERY DAY Medical NEEDED Branch methocarbam 2021-07 Yes TAKE 1 Univ ers oL 750 mg 2-05 TABLET BY ity o f tablet 00:00: [facility] 00 EVERY DAY Medical NEEDED Branch methocarbam 2021-07 Yes TAKE 1 Univ ers oL 750 mg 2-05 TABLET BY ity o f tablet 00:00: [facility] 00 EVERY DAY Medical NEEDED Branch methocarbam 2021-07 Yes TAKE 1 Univ ers oL 750 mg 2-05 TABLET BY ity o f tablet 00:00: [facility] 00 EVERY DAY Medical NEEDED Branch [...] BY ity o f tablet 00:00: MOUTH [place] 00 EVERY DAY Medical NEEDED Branch methocarbam 2021-07 Yes TAKE 1 Univ ers oL 750 mg 2-05 TABLET BY ity o f tablet 00:00: [facility] 00 EVERY DAY Medical NEEDED Branch methocarbam 2021-07 Yes TAKE 1 Univ ers oL 750 mg 2-05 TABLET BY ity o f tablet 00:00: [facility] 00 EVERY DAY Medical NEEDED Branch methocarbam 2021-07 Yes TAKE 1 Univ ers oL 750 mg 2-05 TABLET BY ity o f tablet 00:00: MOUTH [place] 00 EVERY DAY Medical NEEDED Branch budesonide- 2021-07- No [id number] 2{puff} Inhale 2 [facility] formoteroL 2-05 03-20 Puffs in ity of (SYMBICORT) 00:00: 00:00 the [place] 160-4.5 00 :00 morning Medical mcg/actuati and 2 Branch on inhaler Puffs in the evening. tiotropium 2021-07- No [id number] 1{puff} Inhale 1 [facility] bromide 2-05 03-20 Puff ity of (SPIRIVA 00:00: 00:00 daily. [place] RESPIMAT) 00 :00 Medical 2.5 Branch mcg/actuati on Mist budesonide- 2021-07- No [id number] 2{puff} Inhale 2 [facility] formoteroL 2-05 03-20 Puffs in ity of (SYMBICORT) 00:00: 00:00 the [place] 160-4.5 00 :00 morning Medical mcg/actuati and 2 Branch on inhaler Puffs in the evening. tiotropium 2021-07- No [id number] 1{puff} Inhale 1 [facility] bromide 2-05 03-20 Puff ity of (SPIRIVA 00:00: 00:00 daily. [place] RESPIMAT) 00 :00 Medical 2.5 Branch mcg/actuati on Mist budesonide- 2021-07- No [id number] 2{puff} Inhale 2 [facility] formoteroL 2-05 03-20 Puffs in ity of (SYMBICORT) 00:00: 00:00 the [place] 160-4.5 00 :00 morning Medical mcg/actuati and 2 Branch on inhaler Puffs in the evening. tiotropium 2021-07- No [id number] 1{puff} Inhale 1 [facility] bromide 2-05 03-20 Puff ity of (SPIRIVA 00:00: 00:00 daily. [place] RESPIMAT) 00 :00 Medical 2.5 Branch mcg/actuati on Mist budesonide- 2021-07- No [id number] 2{puff} Inhale 2 [facility] formoteroL 2-05 03-20 Puffs in ity of (SYMBICORT) 00:00: 00:00 the [place] 160-4.5 00 :00 morning Medical mcg/actuati and 2 Branch on inhaler Puffs in the evening. tiotropium 2021-07- No [id number] 1{puff} Inhale 1 [facility] bromide 2-05 03-20 Puff ity of (SPIRIVA 00:00: 00:00 daily. [place] RESPIMAT) 00 :00 Medical 2.5 Branch mcg/actuati on Mist budesonide- 2021-07- No [id number] 2{puff} Inhale 2 [facility] formoteroL 2-05 03-20 Puffs in ity of (SYMBICORT) 00:00: 00:00 the [place] 160-4.5 00 :00 morning Medical mcg/actuati and 2 Branch on inhaler Puffs in the evening. tiotropium 2021-07- No [id number] 1{puff} Inhale 1 [facility] bromide 2-05 03-20 Puff ity of (SPIRIVA 00:00: 00:00 daily. [place] RESPIMAT) 00 :00 Medical 2.5 Branch mcg/actuati on Mist azithromyci 2021-07- No 500mg 500 mg, IV Univers n 2- 12-04 Piggyback, ity of (ZITHROMAX) 09:00: 10:05 ONCE, 1 [place] 500 mg in 00 :00 dose, On Medica l NaCl 0.9% Sun Branch (NS) 250 mL 06/21/22 at VIAL-MATE 0300, IV Administer piggyback over 60 Minutes, 250 mL
R navneet for Anti-Infec tive: Empiric Therapy for Suspected Infection< br>Empiric Therapy Site: Respirator y
Durat ion of therapy: 72 hours dexamethaso 2021-07- No 10mg 10 mg, Uni [...] On Medical mg(2.5 mg Wed base)/3 mL 06/21/22 at nebulizer 0015, THIERRY solution 3 mL azithromyci 2021-07- No [id number] Take 42 mL Univers n 100 mg/5 08-22-10 by mouth ity of mL 00:00: 05:59 every 24 [place] suspension 00 :00 (twenty-fo Med ical ur) hours Branch AND 21 mL daily. Do all this for 5 days. azithromyci 2021-07- No [id number] Take 42 mL Univers n 100 mg/5 08-22-10 by mouth ity of mL 00:00: 05:59 every 24 [place] suspension 00 :00 (twenty-fo Med ical ur) hours Branch AND 21 mL daily. Do all this for 5 days. azithromyci 2021-07- No [id number] Take 42 mL Univers n 100 mg/5 08-22-10 by mouth ity of mL 00:00: 05:59 every 24 [place] suspension 00 :00 (twenty-fo Med ical ur) hours Branch AND 21 mL daily. Do all this for 5 days. azithromyci 2021-07- No [id number] Take 42 mL Univers n 100 mg/5 08-22-10 by mouth ity of mL 00:00: 05:59 every 24 [place] suspension 00 :00 (twenty-fo Med ical ur) hours Branch AND 21 mL daily. Do all this for 5 days. azithromyci 2021-07- No [id number] Take 42 mL Univers n 100 mg/5 2-04 12-10 by mouth ity of mL 00:00: 05:59 every 24 [place] suspension 00 :00 (twenty-fo Med ical ur) hours Branch AND 21 mL daily. Do all this for 5 days. azithromyci 2021-07- No [id number] Take 42 mL Univers n 100 mg/5 08-22 by mouth ity of mL 00:00: 05:59 every 24 [place] suspension 00 :00 (twenty-fo Med ical ur) hours Branch AND 21 mL daily. Do all this for 5 days. dexamethaso 2021-07- No [id number] 8mg Take 80 mL Univers ne 0.1 08-22 by mouth ity of mg/mL LOW 00:00: 05:59 once now [place] as [facility] 00 :00 for 1 Medical ON solution dose. Branch doxycycline 2021-07 No [id number] 100mg Take 20 mL Univers monohydrate 08-22 by mouth ity of 25 mg/5 mL 00:00: 00:00 every 12 [place] oral 00 :00 (twelve) Medical suspension hours. Branch iopamidol 2021-07- No [id number] 75mL 75 mL, Univers (ISOVUE 08-16 Intravenou [...] No 30mg 30 mg, Unive rs (TORADOL) 08-1630 Slow IV ity of injection 21:45: 00:58 Push, [place] 30 mg 00 :00 ONCE, 1 Medical dose, On Branch Wed06/16/22 at 1545, Routine codeine-gua 2021-07 No [id number] [...] it y of nebulizer 14:00: , TID, [place] solution 00 First dose Medic al 1.25 mg on Wed Branch 05/29/22 at 0800, Until Discontinu ed, Routine methylpredn 2021-07 Yes 125mg 125 mg, Un glne isolone sod 07-29 Intravenou it y of succ 06:00: s, Q6H, [place] (SOLU-MEDRO 00 First dose Me dical L) on Wed Branch injection 05/29/22 125 mg at 0000, Until Discontinu ed, Routine codeine-gua 2021-07- No 20mL 20 mL, Uni vers ifenesin [...] Branch Maisha 05/28/22 at 2200, THIERRY levoFLOXaci 2021-07- No 750mg 750 mg, IV [...] erals 13:21: mouth Medical (THERAGRAN- 51 daily. [facility]) 9 mg iron-400 mcg Tab tablet cariprazine 2021-0 Yes Take by [facility] (Vraylar) 9-21 [facility]. [facility] 1.5 mg (1)- 13:21: Medica l 3 mg (6) 51 [facility] risperiDONE 2021-0 Yes .25mg Q.5D Take 0.[address] [facility] (RisperDAL) 9-21 mg by [facility] 0.25 MG 13:21: mouth 2 Medical tablet 51 (two) Center times daily. iron-multiv 2021-0 Yes 1{tbl} QD Take [address] itamins-min 9-21 tablet by Ignacio es erals 13:21: mouth Medical (THERAGRAN- 51 daily. [facility]) 9 mg iron-400 mcg Tab tablet cariprazine 2021-0 Yes Take by [facility] (Vraylar) 9-21 mouth. [facility] 1.5 mg (1)- 13:21: Medica l 3 mg (6) 51 [facility] risperiDONE 2021-0 Yes .25mg Q.5D Take 0.[address] [facility] (RisperDAL) 9-21 mg by [facility] 0.25 MG 13:21: mouth 2 Medical tablet 51 (two) Center times daily. iron-multiv 2021-0 Yes 1{tbl} QD Take [address] itamins-min 9-21 tablet by Ignacio es erals 13:21: mouth Medical (THERAGRAN- 51 daily. [facility]) 9 mg iron-400 mcg Tab tablet cariprazine 2021-0 Yes Take by [facility] (Vraylar) 9-21 mouth. [facility] 1.5 mg (1)- 13:21: Medica l 3 mg (6) 51 [facility] risperiDONE 2021-0 Yes .25mg Q.5D Take 0.[address] [facility] (RisperDAL) 9-21 mg by [facility] 0.25 MG 13:21: mouth 2 Medical tablet 51 (two) Center times daily. iron-multiv 2-0 Yes 1{tbl} QD Take [address] itamins-min 9-21 tablet by Ignacio es erals 13:21: mouth Medical (THERAGRAN- 51 daily. [facility]) 9 mg iron-400 mcg Tab tablet cariprazine 2021-0 Yes Take by [facility] (Vraylar) 9-21 mouth. [facility] 1.5 mg (1)- 13:21: Medica l 3 mg (6) 51 [facility] cariprazine 2021-0 Yes Take by [facility] (Vraylar) 9-21 mouth. [facility] 1.5 mg (1)- 13:21: Medica l 3 mg (6) 51 [facility] risperiDONE 2-0 Yes .25mg Q.5D Take 0.[address] [facility] [facility] (RisperDAL) 9-21 mg by [facility] 0.25 MG 13:21: mouth 2 Medical tablet 51 (two) Center times daily. iron-multiv 2021-0 Yes 1{tbl} QD Take [address] itamins-min 9-21 tablet by Ignacio es erals 13:21: mouth Medical (THERAGRAN- 51 daily. [facility]) 9 mg iron-400 mcg Tab tablet risperiDONE 2021-0 Yes .25mg Q.5D Take 0.[address] [facility] (RisperDAL) 9-21 mg by [facility] 0.25 MG 13:21: mouth 2 Medical tablet 51 (two) Center times daily. iron-multiv 2021-0 Yes 1{tbl} QD Take [address] itamins-min 9-21 tablet by Ignacio es erals 13:21: mouth Medical (THERAGRAN- 51 daily. [facility]) 9 mg iron-400 mcg Tab tablet cariprazine 2021-0 Yes Take by [facility] (Vraylar) 9-21 mouth. [facility] 1.5 mg (1)- 13:21: Medica l 3 mg (6) 51 [facility] risperiDONE 2-0 Yes .25mg Q.5D Take 0.[address] [facility] (RisperDAL) 9-21 mg by [facility] 0.25 MG 13:21: mouth 2 Medical tablet 51 (two) Center times daily. iron-multiv 2-0 Yes 1{tbl} QD Take [address] itamins-min 9-21 tablet by Ignacio es erals 13:21: mouth Medical (THERAGRAN- 51 daily. [facility]) 9 mg iron-400 mcg Tab tablet cariprazine 2021-0 Yes Take by [facility] (Vraylar) 9-21 mouth. [facility] 1.5 mg (1)- 13:21: Medica l 3 mg (6) 51 [facility] risperiDONE 2022-0 Yes .25mg Q.5D Take 0.[address] [facility] [facility] (RisperDAL) 9-21 mg by [facility] 0.25 MG 13:21: mouth 2 Medical tablet 51 (two) Center times daily. iron-multiv 2-0 Yes 1{tbl} QD Take [address] itamins-min 9-21 tablet by Ignacio es erals 13:21: mouth Medical (THERAGRAN- 51 daily. [facility]) 9 mg iron-400 mcg Tab tablet cariprazine 2021-0 Yes Take by [facility] (Vraylar) 9-21 mouth. [facility] 1.5 mg (1)- 13:21: Medica l 3 mg (6) 51 [facility] risperiDONE 2-0 Yes .25mg Q.5D Take 0.[address] [facility] (RisperDAL) 9-21 mg by [facility] 0.25 MG 13:21: mouth 2 Medical tablet 51 (two) Center times daily. iron-multiv 2-0 Yes 1{tbl} QD Take [address] itamins-min 9-21 tablet by Ignacio es erals 13:21: mouth Medical (THERAGRAN- 51 daily. [facility]) 9 mg iron-400 mcg Tab tablet cariprazine 2021-0 Yes Take by [facility] (Vraylar) 9-21 mouth. [facility] 1.5 mg (1)- 13:21: Medica l 3 mg (6) 51 [facility] risperiDONE 2-0 Yes .25mg Q.5D Take 0.[address] (RisperDAL) 9-21 mg by [facility] 0.25 MG 13:21: mouth 2 Medical tablet 51 (two) Center times daily. iron-multiv 2-0 Yes 1{tbl} QD Take [address] itamins-min 9-21 tablet by Ignacio es erals 13:21: mouth Medical (THERAGRAN- 51 daily. [facility]) 9 mg iron-400 mcg Tab tablet cariprazine 2021-0 Yes Take by [facility] (Vraylar) 9-21 mouth. [facility] 1.5 mg (1)- 13:21: Medica l 3 mg (6) 51 Center CpPk risperiDONE 2-0 Yes .25mg Q.5D Take 0.25 [...] (two) Center times daily as needed. famotidine 2022-0 Yes 40mg QD Take 40 [...] Medic al mg/mL) 00 Center suspension risperiDONE 2021-0 Yes .5mg Q.25D Take 0.[address] (RisperDAL) 9-09 mg by [facility] 0.5 MG 00:00: mouth 4 Medical tablet 00 (four) Center times daily. Vyvanse 40 2021-0 Yes 40mg QD Take [address] mg capsule 9-09 by mouth [facility] 00:00: daily. Medical 00 [place] busPIRone 0 Yes 15mg QD Take [address] [facility] (BUSPAR) 15 - by mouth Luke s MG tablet 00:00: daily. Medica l 00 [place] Abilify 0 Yes 1mL Inject [address] [facility] 9-09 mL [facility] 300 mg sers 00:00: intramuscu Medical 00 larly. [place] diazePAM 0 Yes 2mg Q.5D Take 2 [...] by mouth [facility] 00:00: daily. Medical 00 [place] busPIRone 2021-0 Yes 15mg QD Take [address] (BUSPAR) 15 9-09 by mouth Luke s MG tablet 00:00: daily. Medica l 00 [place] Abilify 0 Yes 1mL Inject [address] [facility] 9-09 mL [facility] 300 mg sers 00:00: intramuscu Medical 00 larly. Center diazePAM 2021-0 Yes 2mg Q.5D Take 2 [...] capsule 9- by mouth [facility] 00:00: daily. [address] busPIRone 0 Yes 15mg QD Take [address] (BUSPAR) 15 9- by mouth Luke s MG tablet 00:00: daily. Medica l [address] [place] [address] 0 Yes 1mL Inject [address] [facility] [facility] 9-09 mL [facility] 300 mg sers 00:00: intramusc[address] diazePAM 2021-0 Yes 2mg Q.5D Take [address] (VALIUM) 2 9- by mouth 2 Ignacio es MG tablet 00:00: (two) Medical 00 times [place] daily. risperiDONE 2021-0 Yes .5mg Q.25D Take 0.[address] (RisperDAL) 9-09 mg by [facility] 0.5 MG 00:00: mouth 4 Medical tablet 00 (four) Center times daily. Vyvanse 40 2021-0 Yes 40mg QD Take [address] mg capsule 03-27 by mouth [facility] 00:00: daily. [address] busPIRone 2021-0 Yes 15mg QD Take [address] (BUSPAR) 15 9-09 by mouth Luke s MG tablet 00:00: daily. Medica l [address] [place] [address] 0 Yes 1mL Inject [address] [facility] 9-09 mL [facility] 300 mg [facility]ers [facility]: [facility] [address] [place] diazePAM 2021-0 Yes 2mg Q.5D Take 2 [...] capsule - by mouth [facility] 00:00: daily. [facility] 00 [place] busPIRone 0 Yes 15mg QD Take [address] (BUSPAR) 15 9- by mouth Luke s MG tablet 00:00: daily. Medica l 00 [facility] Yes 1mL Inject [address] [facility] 9-09 mL [facility] 300 mg sers 00:00: intramuscu Medical 00 lar. [place] diazePAM 0 Yes 2mg Q.5D Take 2 [...] capsule 03-27 by mouth [facility] 00:00: daily. [address] busPIRone 0 Yes 15mg QD Take [address] (BUSPAR) 15 9- by mouth Luke s MG tablet 00:00: daily. Medica l [address] [place] [address] Yes 1mL Inject [address] [facility] 9-09 mL [facility] 300 mg sers 00:00: intramuscu Medical 00 larly. [place] diazePAM 0 Yes 2mg Q.5D Take 2 [...] capsule 03-27 by mouth [facility] 00:00: daily. [address] busPIRone Yes 15mg QD Take [address] (BUSPAR) 15 9-09 by mouth Luke s MG tablet 00:00: daily. Medica [address] Yes 1mL Inject [address] [facility] [facility] 9-09 mL [facility] 300 mg sers 00:00: intramuscu Medical 00 lar. [place] diazePAM Yes 2mg Q.5D Take 2 mg [...] capsule 03-27 by mouth [facility] 00:00: daily. [address] busPIRone Yes 15mg QD Take [address] (BUSPAR) 15 - by mouth Luke s MG tablet 00:00: daily. Medica [address] Yes 1mL Inject [address] [facility] 9-09 mL [facility] 300 [facility] [place] diazePAM 0 Yes 2mg Q.5D Take [address] [facility] (VALIUM) 2 - by mouth 2 Ignacio es MG tablet 00:00: (two) Medical 00 times [place] daily. risperiDONE 2021-0 Yes .5mg Q.25D Take 0.[address] (RisperDAL) 9-09 mg by [facility] 0.5 MG 00:00: mouth 4 Medical tablet 00 (four) Center times daily. Vyvanse 40 2021-0 Yes 40mg QD Take [address] mg capsule - by mouth [facility] 00:00: daily. [address] busPIRone Yes 15mg QD Take [address] (BUSPAR) 15 9-09 by mouth Luke s MG tablet 00:00: daily. Medica [address] Yes 1mL Inject [address] [facility] 9-09 mL [facility] 300 mg sers 00:00: intramuscu Medical 00 larly. [place] diazePAM Yes 2mg Q.5D Take 2 mg [...] s MG tablet 00:00: daily. Medica l [place] Abiliy Yes 1mL Inject [address] [facility] 9-09 mL [facility] 300 mg sers 00:00: intramuscu Medical 00 larly. Center diazePAM Yes 2mg Q.5D Take [address] [facility] (VALIUM) 2 03-27 by mouth 2 Ignacio es MG tablet 00:00: (two) Medical 00 times Center daily. Dulera Yes 2{puff} Q.5D [address] [facility] [facility] 200-5 9-08 (two) [facility] mcg/actuati 00:00: times Medic al on inhaler 00 daily. [place] Dulera Yes 2{puff} Q.5D [address] [facility] 200-5 9-08 (two) [facility] mcg/actuati 00:00: times Medic al on inhaler 00 daily. [place] Dulera Yes 2{puff} Q.5D [address] [facility] 200-5 9-08 (two) [facility] mcg/actuati 00:00: times Medic al on inhaler 00 daily. [place] Dulera Yes 2{puff} Q.5D [address] [facility] 200-5 9-08 (two) [facility] mcg/actuati 00:00: times Medic al on inhaler 00 daily. [facility] Yes 2{puff} Q.5D [address] [facility] [facility] 200-5 9-08 (two) [facility] mcg/actuati 00:00: times Medic al on inhaler 00 daily. [facility] Yes 2{puff} Q.5D [address] [facility] 200-5 9-08 (two) [facility] mcg/actuati 00:00: times Medic al on inhaler 00 daily. [facility] Yes 2{puff} Q.5D [address] [facility] [facility] 200-5 9-08 (two) [facility] mcg/actuati 00:00: times Medic al on inhaler 00 daily. [facility] Yes 2{puff} Q.5D [address] [facility] 200-5 9-08 (two) [facility] mcg/actuati 00:00: times Medic al on inhaler 00 daily. [facility] Yes 2{puff} Q.5D [address] [facility] [facility] 200-5 9-08 (two) [facility] mcg/actuati 00:00: times Medic al on inhaler 00 daily. [facility] Yes 2{puff} Q.5D [address] [facility] 200-5 9-08 (two) [facility] mcg/actuati 00:00: times Medic al on inhaler 00 daily. [place] levalbutero Yes SMARTSIG:V [facility] (XOPENEX [...] Medical 00 night as Center needed. cetirizine 2022-0 Yes 10mg Take [address] (ZyrTEC) 10 9-02 by mouth Luke s MG tablet 00:00: every Medical 00 night as Center needed. cetirizine 2022-0 Yes 10mg Take [address] (ZyrTEC) 10 9-02 by mouth Luke s MG tablet 00:00: every Medical 00 night as Center needed. cetirizine 2022-0 Yes 10mg Take [address] (ZyrTEC) 10 9-02 by mouth Luke s MG tablet 00:00: every Medical 00 night as Center needed. cetirizine 2022-0 Yes 10mg Take [address] (ZyrTEC) 10 9-02 by mouth Luke s MG tablet 00:00: every Medical 00 night as Center needed. cetirizine 2022-0 Yes 10mg Take 10 mg [facility] [...] (s) By Center suspension Mouth Daily triamcinolo 2021-0 Yes Apply [facility] [...] Yes .3mg 0.[address] [facility] (EpiPen 8- [facility] 2-Rory) 0.3 00:00: Medical mg/0.3 mL [...] 2-Rory) 0.3 00:00: Medical mg/0.3 mL 00 [facility] Yes 1{tbl} Take [address] [facility] (Qulipta) 6-15 tablet by [facility] 60 mg Tab 00:00: mouth. Medica l [facility] Yes 1{tbl} Take [address] [facility] (Qulipta) 6-15 tablet by [facility] 60 mg Tab 00:00: mouth. Medica l [facility] Yes 1{tbl} Take [address] [facility] (Qulipta) 6-15 tablet by [facility] 60 mg Tab 00:00: mouth. Medica l [facility] Yes 1{tbl} Take [address] [facility] (Qulipta) 6-15 tablet by [facility] 60 mg Tab 00:00: mouth. Medica l [facility] Yes 1{tbl} Take [address] [facility] (Qulipta) 6-15 tablet by [facility] 60 mg Tab 00:00: mouth. Medica l [facility] Yes 1{tbl} Take [address] [facility] (Qulipta) 6-15 tablet by [facility] 60 mg Tab 00:00: mouth. Medica l [facility] Yes 1{tbl} Take [address] [facility] (Qulipta) 6-15 tablet by [facility] 60 mg Tab 00:00: mouth. Medica l [facility] Yes 1{tbl} Take [address] [facility] (Qulipta) 6-15 tablet by [facility] 60 mg Tab 00:00: mouth. Medica l 00 [facility] Yes 1{tbl} Take [address] [facility] (Qulipta) 6-15 tablet by [facility] 60 mg Tab 00:00: mouth. Medica l 00 [facility] Yes 1{tbl} Take 1 Univ ers (QULIPTA) 6-15 tablet by ity o f 60 mg Tab 00:00: mouth [place] 00 daily. [facility] Yes 1{tbl} Take 1 Univ ers (QULIPTA) 6-15 tablet by ity o f 60 mg Tab 00:00: mouth [place] 00 daily. [facility] Yes 1{tbl} Take 1 Univ ers (QULIPTA) 6-15 tablet by ity o f 60 mg Tab 00:00: mouth [place] 00 daily. [facility] Yes 1{tbl} Take 1 Univ ers (QULIPTA) 6-15 tablet by ity o f 60 mg Tab 00:00: mouth [place] 00 daily. [facility] Yes 1{tbl} Take 1 [facility] (QULIPTA) 6-15 tablet by ity o f 60 mg Tab 00:00: mouth [place] 00 daily. [facility] Yes 1{tbl} Take 1 [facility] (QULIPTA) 6-15 tablet by ity o f 60 mg Tab 00:00: mouth [place] 00 daily. [facility] Yes 1{tbl} Take 1 [facility] (QULIPTA) 6-15 tablet by ity o f 60 mg Tab 00:00: mouth [place] 00 daily. [facility] Yes 1{tbl} Take 1 [facility] (QULIPTA) 6-15 tablet by ity o f 60 mg Tab 00:00: mouth [place] 00 daily. [facility] Yes 1{tbl} Take 1 [facility] (QULIPTA) 6-15 tablet by ity o f 60 mg Tab 00:00: mouth [place] 00 daily. [facility] Yes 1{tbl} Take 1 [facility] (QULIPTA) 6-15 tablet by ity o f 60 mg Tab 00:00: mouth [place] 00 daily. [facility] [facility] Take [facility] (QULIPTA) 6-15 tablet by ity o f 60 mg Tab 00:00: mouth [place] 00 daily. Medical [facility] Yes 1{tbl} Take 1 [facility] (QULIPTA) 6-15 tablet by [facility]y o f 60 mg Tab 00:00: mouth [place] 00 daily. [facility] Yes 1{tbl} Take 1 [facility] (QULIPTA) 6-15 tablet by [facility]y o f 60 mg Tab 00:00: mouth [place] 00 daily. [facility] Yes 1{tbl} Take 1 [facility] (QULIPTA) 6-15 tablet by [facility]y o f 60 mg Tab 00:00: mouth [place] 00 daily. Medical [facility] Yes 1{tbl} Take 1 [facility] (QULIPTA) 6-15 tablet by [facility]y o f 60 mg Tab 00:00: mouth [place] 00 daily. Medical [facility] Yes 1{tbl} Take 1 [facility] (QULIPTA) 6-15 tablet by [facility]y o f 60 mg Tab 00:00: mouth [place] 00 daily. [facility] Yes 1{tbl} Take 1 [facility] (QULIPTA) 6-15 tablet by ity o f 60 mg Tab 00:00: mouth [place] 00 daily. [facility] Yes 1{tbl} Take 1 [facility] (QULIPTA) 6-15 tablet by [facility]y o f 60 mg Tab 00:00: mouth [place] 00 daily. Medical [facility] Yes 1{tbl} Take 1 [facility] (QULIPTA) 6-15 tablet by ity o f 60 mg Tab 00:00: mouth [place] 00 daily. [facility] Yes 1{tbl} Take 1 [facility] (QULIPTA) 6-15 tablet by ity o f 60 mg Tab 00:00: mouth [place] 00 daily. Medical [facility] Yes 1{tbl} Take 1 [facility] (QULIPTA) 6-15 tablet by [facility]y o f 60 mg Tab 00:00: mouth [place] 00 daily. Medical [facility] Yes 1{tbl} Take 1 [facility] (QULIPTA) 6-15 tablet by [facility] o f 60 mg Tab 00:00: mouth [place] 00 daily. [facility] Yes 1{tbl} Take 1 [facility] (QULIPTA) 6-15 tablet by ity o f 60 mg Tab 00:00: mouth [place] 00 daily. Medical [facility] Yes 1{tbl} Take 1 [facility] (QULIPTA) 6-15 tablet by ity o f 60 mg Tab 00:00: mouth [place] 00 daily. Medical [facility] Yes 1{tbl} Take 1 [facility] (QULIPTA) 6-15 tablet by ity o f 60 mg Tab 00:00: mouth [place] 00 daily. Medical [facility] Yes 1{tbl} Take 1 [facility] (QULIPTA) 6-15 tablet by [facility]y o f 60 mg Tab 00:00: mouth [place] 00 daily. Medical [facility] Yes 1{tbl} Take 1 [facility] (QULIPTA) 6-15 tablet by ity o f 60 mg Tab 00:00: mouth [place] 00 daily. Medical [facility] Yes 1{tbl} Take 1 [facility] (QULIPTA) 6-15 tablet by ity o f 60 mg Tab 00:00: mouth [place] 00 daily. [facility] Yes 1{tbl} Take 1 [facility] (QULIPTA) 6-15 tablet by ity o f 60 mg Tab 00:00: mouth [place] 00 daily. Medical [facility] Yes 1{tbl} Take 1 [facility] (QULIPTA) 6-15 tablet by [facility] o f 60 mg Tab 00:00: mouth [place] 00 daily. Medical [facility] Yes 1{tbl} Take 1 [facility] (QULIPTA) 6-15 tablet by ity o f 60 mg Tab 00:00: mouth [place] 00 daily. Medical [facility] Yes 1{tbl} Take 1 [facility] (QULIPTA) 6-15 tablet by ity o f 60 mg Tab 00:00: mouth [place] 00 daily. [facility] Yes 1{tbl} Take 1 [facility] (QULIPTA) 6-15 tablet by ity o f 60 mg Tab 00:00: mouth [place] 00 daily. [facility] Yes 1{tbl} Take 1 [facility] (QULIPTA) 6-15 tablet by ity o f 60 mg Tab 00:00: mouth [place] 00 daily. [facility] Yes 1{tbl} Take 1 [facility] (QULIPTA) 6-15 tablet by ity o f 60 mg Tab 00:00: mouth [place] 00 daily. [facility] Yes 1{tbl} Take 1 [facility] (QULIPTA) 6-15 tablet by ity o f 60 mg Tab 00:00: mouth [place] 00 daily. [facility] Yes 1{tbl} Take 1 [facility] (QULIPTA) 6-15 tablet by ity o f 60 mg Tab 00:00: mouth [place] 00 daily. Medical [facility] Yes 1{tbl} Take 1 [facility] (QULIPTA) 6-15 tablet by ity o f 60 mg Tab 00:00: mouth [place] 00 daily. [facility] Yes 1{tbl} Take 1 [facility] (QULIPTA) 6-15 tablet by ity o f 60 mg Tab 00:00: mouth [place] 00 daily. [facility] Yes 1{tbl} Take 1 [facility] (QULIPTA) 6-15 tablet by ity o f 60 mg Tab 00:00: mouth [place] 00 daily. [facility] Yes 1{tbl} Take 1 [facility] (QULIPTA) 6-15 tablet by ity o f 60 mg Tab 00:00: mouth [place] 00 daily. [facility] Yes 1{tbl} Take 1 [facility] (QULIPTA) 6-15 tablet by [facility]y o f 60 mg Tab 00:00: mouth [place] 00 daily. [facility] Yes 1{tbl} Take 1 [facility] (QULIPTA) 6-15 tablet by [facility]y o f 60 mg Tab 00:00: mouth [place] 00 daily. [facility] Yes 1{tbl} Take 1 [facility] (QULIPTA) 6-15 tablet by [facility]y o f 60 mg Tab 00:00: mouth [place] 00 daily. [facility] Yes 1{tbl} Take 1 [facility] (QULIPTA) 6-15 tablet by ity o f 60 mg Tab 00:00: mouth [place] 00 daily. [facility] Yes 1{tbl} Take 1 [facility] (QULIPTA) 6-15 tablet by ity o f 60 mg Tab 00:00: mouth [place] 00 daily. [facility] Yes 1{tbl} Take 1 [facility] (QULIPTA) 6-15 tablet by [facility]y o f 60 mg Tab 00:00: mouth [place] 00 daily. Medical [facility] Yes 1{tbl} Take 1 [facility] (QULIPTA) 6-15 tablet by [facility]y o f 60 mg Tab 00:00: mouth [place] 00 daily. Medical [facility] Yes 1{tbl} Take 1 [facility] (QULIPTA) 6-15 tablet by ity o f 60 mg Tab 00:00: mouth [place] 00 daily. [facility] Yes 1{tbl} Take 1 [facility] (QULIPTA) 6-15 tablet by ity o f 60 mg Tab 00:00: mouth [place] 00 daily. [facility] Yes 1{tbl} Take 1 [facility] (QULIPTA) 6-15 tablet by [facility]y o f 60 mg Tab 00:00: mouth [place] 00 daily. [facility] Yes 1{tbl} Take 1 [facility] (QULIPTA) 6-15 tablet by [facility]y o f 60 mg Tab 00:00: mouth [place] 00 daily. [facility] Yes 1{tbl} Take 1 [facility] (QULIPTA) 6-15 tablet by [facility]y o f 60 mg Tab 00:00: mouth [place] 00 daily. Medical [facility] Yes 1{tbl} Take 1 [facility] (QULIPTA) 6-15 tablet by ity o f 60 mg Tab 00:00: mouth [place] 00 daily. [facility] Yes 1{tbl} Take 1 [facility] (QULIPTA) 6-15 tablet by ity o f 60 mg Tab 00:00: mouth [place] 00 daily. [facility] Yes 1{tbl} Take 1 [facility] (QULIPTA) 6-15 tablet by ity o f 60 mg Tab 00:00: mouth [place] 00 daily. [facility] Yes 1{tbl} Take 1 [facility] (QULIPTA) 6-15 tablet by [facility]y o f 60 mg Tab 00:00: mouth [place] 00 daily. [facility] Yes 1{tbl} Take 1 [facility] (QULIPTA) 6-15 tablet by ity o f 60 mg Tab 00:00: mouth [place] 00 daily. [facility] Yes 1{tbl} Take 1 [facility] (QULIPTA) 6-15 tablet by ity o f 60 mg Tab 00:00: mouth [place] 00 daily. [facility] Yes 1{tbl} Take 1 [facility] (QULIPTA) 6-15 tablet by ity o f 60 mg Tab 00:00: mouth [place] 00 daily. [facility] Yes 1{tbl} Take 1 [facility] (QULIPTA) 6-15 tablet by ity o f 60 mg Tab 00:00: mouth [place] 00 daily. [facility] Yes 1{tbl} Take 1 [facility] (QULIPTA) 6-15 tablet by ity o f 60 mg Tab 00:00: mouth [place] 00 daily. [facility] Yes 1{tbl} Take 1 [facility] (QULIPTA) 6-15 tablet by [facility]y o f 60 mg Tab 00:00: mouth [place] 00 daily. [facility] Yes 1{tbl} Take 1 [facility] (QULIPTA) 6-15 tablet by ity o f 60 mg Tab 00:00: mouth [place] 00 daily. Medical [facility] Yes 1{tbl} Take 1 [facility] (QULIPTA) 6-15 tablet by [facility] o f 60 mg Tab 00:00: mouth [place] 00 daily. [facility] Yes 1{tbl} Take 1 [facility] (QULIPTA) 6-15 tablet by [facility]y o f 60 mg Tab 00:00: mouth [place] 00 daily. Medical [facility] Yes 1{tbl} Take 1 [facility] (QULIPTA) 6-15 tablet by ity o f 60 mg Tab 00:00: mouth [place] 00 daily. Medical [facility] Yes 1{tbl} Take 1 [facility] (QULIPTA) 6-15 tablet by [facility]y o f 60 mg Tab 00:00: mouth [place] 00 daily. Medical [facility] Yes 1{tbl} Take 1 [facility] (QULIPTA) 6-15 tablet by [facility] o f 60 mg Tab 00:00: mouth [place] 00 daily. Medical [facility] Yes 1{tbl} Take 1 [facility] (QULIPTA) 6-15 tablet by ity o f 60 mg Tab 00:00: mouth [place] 00 daily. Medical [facility] Yes 1{tbl} Take 1 [facility] (QULIPTA) 6-15 tablet by [facility]y o f 60 mg Tab 00:00: mouth [place] 00 daily. Medical [facility] Yes 1{tbl} Take 1 [facility] (QULIPTA) 6-15 tablet by [facility]y o f 60 mg Tab 00:00: mouth [place] 00 daily. [facility] Yes 1{tbl} Take 1 [facility] (QULIPTA) 6-15 tablet by [facility]y o f 60 mg Tab 00:00: mouth [place] 00 daily. [facility] Yes 1{tbl} Take 1 [facility] (QULIPTA) 6-15 tablet by ity o f 60 mg Tab 00:00: mouth [place] 00 daily. [facility] Yes 1{tbl} Take 1 [facility] (QULIPTA) 6-15 tablet by ity o f 60 mg Tab 00:00: mouth [place] 00 daily. [facility] Yes 1{tbl} Take 1 [facility] (QULIPTA) 6-15 tablet by ity o f 60 mg Tab 00:00: mouth [place] 00 daily. [facility] Yes 1{tbl} Take 1 [facility] (QULIPTA) 6-15 tablet by [facility]y o f 60 mg Tab 00:00: mouth [place] 00 daily. [facility] Yes 1{tbl} Take 1 [facility] (QULIPTA) 6-15 tablet by [facility]y o f 60 mg Tab 00:00: mouth [place] 00 daily. [facility] Yes 1{tbl} Take 1 [facility] (QULIPTA) 6-15 tablet by ity o f 60 mg Tab 00:00: mouth [place] 00 daily. [facility] Yes 1{tbl} Take 1 [facility] (QULIPTA) 6-15 tablet by ity o f 60 mg Tab 00:00: mouth [place] 00 daily. Medical [facility] Yes 1{tbl} Take 1 [facility] (QULIPTA) 6-15 tablet by [facility]y o f 60 mg Tab 00:00: mouth [place] 00 daily. [facility] Yes 1{tbl} Take 1 [facility] (QULIPTA) 6-15 tablet by ity o f 60 mg Tab 00:00: mouth [place] 00 daily. [facility] Yes 1{tbl} Take 1 [facility] (QULIPTA) 6-15 tablet by [facility]y o f 60 mg Tab 00:00: mouth [place] 00 daily. Medical [facility] Yes 1{tbl} Take 1 [facility] (QULIPTA) 6-15 tablet by ity o f 60 mg Tab 00:00: mouth [place] 00 daily. [facility] Yes 1{tbl} Take 1 [facility] (QULIPTA) 6-15 tablet by ity o f 60 mg Tab 00:00: mouth [place] 00 daily. [facility] Yes 1{tbl} Take 1 [facility] (QULIPTA) 6-15 tablet by ity o f 60 mg Tab 00:00: mouth [place] 00 daily. [facility] Yes 1{tbl} Take 1 [facility] (QULIPTA) 6-15 tablet by ity o f 60 mg Tab 00:00: mouth [place] 00 daily. Medical [facility] Yes 1{tbl} Take 1 [facility] (QULIPTA) 6-15 tablet by ity o f 60 mg Tab 00:00: mouth [place] 00 daily. [facility] Yes 1{tbl} Take 1 [facility] (QULIPTA) 6-15 tablet by ity o f 60 mg Tab 00:00: mouth [place] 00 daily. [facility] Yes 1{tbl} Take 1 [facility] (QULIPTA) 6-15 tablet by ity o f 60 mg Tab 00:00: mouth [place] 00 daily. [facility] Yes 1{tbl} Take 1 [facility] (QULIPTA) 6-15 tablet by ity o f 60 mg Tab 00:00: mouth [place] 00 daily. Medical [facility] Yes 1{tbl} Take 1 [facility] (QULIPTA) 6-15 tablet by ity o f 60 mg Tab 00:00: mouth [place] 00 daily. [facility] Yes 1{tbl} Take 1 [facility] (QULIPTA) 6-15 tablet by ity o f 60 mg Tab 00:00: mouth [place] 00 daily. [facility] Yes 1{tbl} Take 1 [facility] (QULIPTA) 6-15 tablet by ity o f 60 mg Tab 00:00: mouth [place] 00 daily. [facility] Yes 1{tbl} Take 1 [facility] (QULIPTA) 6-15 tablet by ity o f 60 mg Tab 00:00: mouth [place] 00 daily. [facility] Yes 1{tbl} Take 1 [facility] (QULIPTA) 6-15 tablet by ity o f 60 mg Tab 00:00: mouth [place] 00 daily. [facility] Yes 1{tbl} Take 1 [facility] (QULIPTA) 6-15 tablet by ity o f 60 mg Tab 00:00: mouth [place] 00 daily. Medical [facility] Yes 1{tbl} Take 1 [facility] (QULIPTA) 6-15 tablet by ity o f 60 mg Tab 00:00: mouth [place] 00 daily. Medical [facility] Yes 1{tbl} Take 1 [facility] (QULIPTA) 6-15 tablet by ity o f 60 mg Tab 00:00: mouth [place] 00 daily. Medical [facility] Yes 1{tbl} Take 1 [facility] (QULIPTA) 6-15 tablet by ity o f 60 mg Tab 00:00: mouth [place] 00 daily. [facility] Yes 1{tbl} Take 1 [facility] (QULIPTA) 6-15 tablet by ity o f 60 mg Tab 00:00: mouth [place] 00 daily. Medical [facility] Yes 1{tbl} Take 1 [facility] (QULIPTA) 6-15 tablet by ity o f 60 mg Tab 00:00: mouth [place] 00 daily. Medical [facility] Yes 1{tbl} Take 1 [facility] (QULIPTA) 6-15 tablet by [facility]y o f 60 mg Tab 00:00: mouth [place] 00 daily. Medical [facility] Yes 1{tbl} Take 1 [facility] (QULIPTA) 6-15 tablet by ity o f 60 mg Tab 00:00: mouth [place] 00 daily. Medical [facility] Yes 1{tbl} Take 1 [facility] (QULIPTA) 6-15 tablet by ity o f 60 mg Tab 00:00: mouth [place] 00 daily. Medical [facility] Yes 1{tbl} Take 1 [facility] (QULIPTA) 6-15 tablet by ity o f 60 mg Tab 00:00: mouth [place] 00 daily. Medical [facility] Yes 1{tbl} Take 1 [facility] (QULIPTA) 6-15 tablet by [facility]y o f 60 mg Tab 00:00: mouth [place] 00 daily. [facility] Yes 1{tbl} Take 1 [facility] (QULIPTA) 6-15 tablet by [facility]y o f 60 mg Tab 00:00: mouth [place] 00 daily. Medical [facility] Yes 1{tbl} Take 1 [facility] (QULIPTA) 6-15 tablet by [facility]y o f 60 mg Tab 00:00: mouth [place] 00 daily. [facility] Yes 1{tbl} Take 1 [facility] (QULIPTA) 6-15 tablet by ity o f 60 mg Tab 00:00: mouth [place] 00 daily. [facility] Yes 1{tbl} Take 1 [facility] (QULIPTA) 6-15 tablet by ity o f 60 mg Tab 00:00: mouth [place] 00 daily. [facility] Yes 1{tbl} Take 1 [facility] (QULIPTA) 6-15 tablet by ity o f 60 mg Tab 00:00: mouth [place] 00 daily. Medical [facility] Yes 1{tbl} Take 1 [facility] (QULIPTA) 6-15 tablet by [facility]y o f 60 mg Tab 00:00: mouth [place] 00 daily. [facility] Yes 1{tbl} Take 1 [facility] (QULIPTA) 6-15 tablet by ity o f 60 mg Tab 00:00: mouth [place] 00 daily. [facility] Yes 1{tbl} Take 1 [facility] (QULIPTA) 6-15 tablet by [facility]y o f 60 mg Tab 00:00: mouth [place] 00 daily. [facility] Yes 1{tbl} Take 1 [facility] (QULIPTA) 6-15 tablet by [facility] o f 60 mg Tab 00:00: mouth [place] 00 daily. Medical [facility] Yes 1{tbl} Take 1 [facility] (QULIPTA) 6-15 tablet by [facility] o f 60 mg Tab 00:00: mouth [place] 00 daily. [facility] Yes 1{tbl} Take 1 [facility] (QULIPTA) 6-15 tablet by [facility]y o f 60 mg Tab 00:00: mouth [place] 00 daily. Medical [facility] Yes 1{tbl} Take 1 [facility] (QULIPTA) 6-15 tablet by [facility]y o f 60 mg Tab 00:00: mouth [place] 00 daily. Medical [facility] Yes 1{tbl} Take 1 [facility] (QULIPTA) 6-15 tablet by [facility] o f 60 mg Tab 00:00: mouth [place] 00 daily. Medical [facility] Yes 1{tbl} Take 1 [facility] (QULIPTA) 6-15 tablet by [facility] o f 60 mg Tab 00:00: mouth [place] 00 daily. Medical [facility] Yes 1{tbl} Take 1 [facility] (QULIPTA) 6-15 tablet by [facility] o f 60 mg Tab 00:00: mouth [place] 00 daily. Medical [facility] Yes 1{tbl} Take 1 [facility] (QULIPTA) 6-15 tablet by [facility] o f 60 mg Tab 00:00: mouth [place] 00 daily. Medical [facility] Yes 1{tbl} Take 1 [facility] (QULIPTA) 6-15 tablet by [facility] o f 60 mg Tab 00:00: mouth [place] 00 daily. Medical [facility] Yes 1{tbl} Take 1 [facility] (QULIPTA) 6-15 tablet by [facility] o f 60 mg Tab 00:00: mouth [place] 00 daily. Medical [facility] Yes 1{tbl} Take 1 [facility] (QULIPTA) 6-15 tablet by [facility] o f 60 mg Tab 00:00: mouth [place] 00 daily. Medical [facility] Yes 1{tbl} Take 1 [facility] (QULIPTA) 6-15 tablet by [facility] o f 60 mg Tab 00:00: mouth [place] 00 daily. Medical [facility] Yes 1{tbl} Take 1 [facility] (QULIPTA) 6-15 tablet by [facility] o f 60 mg Tab 00:00: mouth [place] 00 daily. Medical [facility] Yes 1{tbl} Take 1 [facility] (QULIPTA) 6-15 tablet by [facility] o f 60 mg Tab 00:00: mouth [place] 00 daily. Medical [facility] Yes 1{tbl} Take 1 [facility] (QULIPTA) 6-15 tablet by [facility] o f 60 mg Tab 00:00: mouth [place] 00 daily. [facility] Yes 1{tbl} Take 1 [facility] (QULIPTA) 6-15 tablet by [facility]y o f 60 mg Tab 00:00: mouth [place] 00 daily. [facility] Yes 1{tbl} Take 1 [facility] (QULIPTA) 6-15 tablet by [facility] o f 60 mg Tab 00:00: mouth [place] 00 daily. [facility] Yes 1{tbl} Take 1 [facility] (QULIPTA) 6-15 tablet by [facility] o f 60 mg Tab 00:00: mouth [place] 00 daily. [facility] Yes 1{tbl} Take 1 [facility] (QULIPTA) 6-15 tablet by [facility] o f 60 mg Tab 00:00: mouth [place] 00 daily. [facility] Yes 1{tbl} Take 1 [facility] (QULIPTA) 6-15 tablet by [facility] o f 60 mg Tab 00:00: mouth [place] 00 daily. [facility] Yes 1{tbl} Take 1 [facility] (QULIPTA) 6-15 tablet by [facility] o f 60 mg Tab 00:00: mouth [place] 00 daily. [facility] Yes 1{tbl} Take 1 [facility] (QULIPTA) 6-15 tablet by [facility] o f 60 mg Tab 00:00: mouth [place] 00 daily. [facility] Yes 1{tbl} Take 1 [facility] (QULIPTA) 6-15 tablet by [facility] o f 60 mg Tab 00:00: mouth [place] 00 daily. [facility] Yes 1{tbl} Take 1 [facility] (QULIPTA) 6-15 tablet by [facility] o f 60 mg Tab 00:00: mouth [place] 00 daily. [facility] Yes 1{tbl} Take 1 [facility] (QULIPTA) 6-15 tablet by [facility] o f 60 mg Tab 00:00: mouth [place] 00 daily. [facility] 0 Yes 1{tbl} Take 1 [facility] (QULIPTA) 6-15 tablet by [facility] o f 60 mg Tab 00:00: mouth [place] 00 daily. [facility] 0 Yes 1{tbl} Take 1 [facility] (QULIPTA) 6-15 tablet by [facility] o f 60 mg Tab 00:00: mouth [place] 00 daily. [facility] 0 Yes 1{tbl} Take 1 [facility] (QULIPTA) 6-15 tablet by [facility] o f 60 mg Tab 00:00: mouth [place] 00 daily. [facility] Yes 1{tbl} Take 1 [facility] (QULIPTA) 6-15 tablet by [facility] o f 60 mg Tab 00:00: mouth [place] 00 daily. [facility] Yes 1{tbl} Take 1 [facility] (QULIPTA) 6-15 tablet by [facility] o f 60 mg Tab 00:00: mouth [place] 00 daily. [facility] Yes 1{tbl} Take [address] [facility] (Qulipta) 6-15 tablet by [facility] Tab 00:00: mouth. Medica l 00 [place] levETIRAcet 0 2022- No 500mg Take [address] [facility] am (KEPPRA) 4-13 04-08 mg by [facility] mg/mL 00:00: 23:59 mouth. Medic al solution 00 :00 [place] levETIRAcet 2021-0 2022- No 500mg Take [address] [facility] (KEPPRA) 4-13 04-08 mg by [facility] mg/mL 00:00: 23:59 mouth. Medic al solution 00 :00 [place] levETIRAcet 2021-0 3- No 500mg Take [address] [facility] am (KEPPRA) 4-13 04-08 mg [facility] mg/mL 00:00: 23:59 mouth. Medic al solution 00 :00 [place] levETIRAcet 2021-0 2022- No 500mg Take [address] [facility] am (KEPPRA) 4-13 04-08 mg [facility] mg/mL 00:00: 23:59 mouth. Medic al solution 00 :00 [place] levETIRAcet 2021-0 2022- No 500mg Take [address] [facility] am (KEPPRA) 4-13 04-08 mg by [facility] mg/mL 00:00: 23:59 mouth. Medic al solution 00 :00 [facility] levETIRAcet 2021-0 2022- No 500mg Take [address] [facility] am (KEPPRA) 4-13 04-08 mg [facility] mg/mL 00:00: 23:59 mouth. Medic al solution 00 :00 [place] levETIRAcet 2021-0 2022- No 500mg Take [address] [facility] am (KEPPRA) 4-13 04-08 mg by [facility] mg/mL 00:00: 23:59 mouth. Medic al solution 00 :00 [place] levETIRAcet 2021-0 2022- No 500mg Take [address] [facility] am (KEPPRA) 4-13 04-08 mg by [facility] 100 mg/mL 00:00: 23:59 mouth. Medic al solution 00 :00 [place] levETIRAcet 2021-0 2022- No 500mg Take [address] [facility] am (KEPPRA) 4-13 04-08 mg [facility] mg/mL 00:00: 23:59 mouth. Medic al solution 00 :00 [place] levETIRAcet 2021-0 2022- No 500mg Take [address] [facility] am (KEPPRA) 4-13 04-08 mg [facility] 100 mg/mL 00:00: 23:59 mouth. Medic al solution 00 :00 [place] SUMAtriptan 2-0 Yes 20mg 20 mg by [...] mg/actuatio 00 Center n nasal spray SUMAtriptan 2022-0 Yes 20mg [address] [facility] (Imitrex[facility] 2-24 [facility]al [facility] 20 00:00: route. Medical mg/actuatio 00 Center n nasal spray SUMAtriptan 2022-0 Yes 20mg [facility] [address] [facility] (Imitrex[facility] 2-24 [facility] 20 00:00: route. Medical mg/actuatio 00 Center n nasal spray SUMAtriptan 2022-0 Yes 20mg [facility] [address] [facility] (Imitrex[facility] 2-24 [facility] 20 00:00: route. Medical mg/actuatio 00 Center n nasal spray SUMAtriptan 2022-0 Yes 20mg [facility] [address] [facility] (Imitrex) 2-24 [facility] 20 00:00: route. Medical mg/actuatio 00 Center n nasal spray SUMAtriptan 2022-0 Yes 20mg [facility] [address] [facility] (Imitrex) 2-24 [facility] 20 00:00: route. Medical mg/actuatio 00 Center n nasal spray SUMAtriptan 2022-0 Yes 20mg [address] [facility] (Imitrex) 2-24 [facility] 20 00:00: route. Medical mg/actuatio 00 Center n nasal spray SERTraline 2020-0 Yes [id number] 25mg Take 1 [facility] 25 mg 1-14 tablet by [facility] tablet 00:00: mouth [place] 00 daily. [facility] SERTraline 2020-0 Yes [id number] 25mg Take 1 [facility] 25 mg 1-14 tablet by [facility] tablet 00:00: mouth [place] 00 daily. [facility] SERTraline 2020-0 Yes [id number] 25mg Take 1 [facility] 25 mg 1-14 tablet by [facility] tablet 00:00: mouth [place] 00 daily. [facility] SERTraline 2020-0 Yes [id number] 25mg Take 1 [facility] 25 mg 1-14 tablet by [facility] tablet 00:00: mouth [place] 00 daily. [facility] SERTraline 2020-0 Yes [id number] 25mg Take 1 [facility] 25 mg 1-14 tablet by [facility] tablet 00:00: mouth [place] 00 daily. [facility] SERTraline 2020-0 Yes [id number] 25mg Take 1 [facility] 25 mg 1-14 tablet by [facility] tablet 00:00: mouth [place] 00 daily. [facility] SERTraline 2020-0 Yes [id number] 25mg Take 1 [facility] 25 mg 1-14 tablet by [facility] tablet 00:00: mouth [place] 00 daily. [facility] SERTraline 2020-0 Yes [id number] 25mg Take 1 [facility] 25 mg 1-14 tablet by [facility] tablet 00:00: mouth [place] 00 daily. [facility] SERTraline 2020-0 Yes [id number] 25mg Take 1 [facility] 25 mg 1-14 tablet by [facility] tablet 00:00: mouth [place] 00 daily. Medical [facility] SERTraline 2020-0 Yes [id number] 25mg Take 1 [facility] 25 mg 1-14 tablet by [facility] tablet 00:00: mouth [place] 00 daily. [facility] SERTraline 2020-0 Yes [id number] 25mg Take 1 [facility] 25 mg 1-14 tablet by [facility] tablet 00:00: mouth [place] 00 daily. [facility] SERTraline 2020-0 Yes [id number] 25mg Take 1 [facility] 25 mg 1-14 tablet by [facility] tablet 00:00: mouth [place] 00 daily. [facility] SERTraline 2020-0 Yes [id number] 25mg Take 1 [facility] 25 mg 1-14 tablet by [facility] tablet 00:00: mouth [place] 00 daily. [facility] SERTraline 2020-0 Yes [id number] 25mg Take 1 [facility] 25 mg 1-14 tablet by [facility] tablet 00:00: mouth [place] 00 daily. [facility] SERTraline 2020-0 Yes [id number] 25mg Take 1 [facility] 25 mg 1-14 tablet by [facility] tablet 00:00: mouth [place] 00 daily. Medical [facility] SERTraline 2020-0 Yes [id number] 25mg Take 1 [facility] 25 mg 1-14 tablet by [facility] tablet 00:00: mouth [place] 00 daily. [facility] SERTraline 2020-0 Yes [id number] 25mg Take 1 [facility] 25 mg 1-14 tablet by [facility] tablet 00:00: mouth [place] 00 daily. [facility] SERTraline 2020-0 2022- No [id number] 25mg Take 1 [facility] 25 [facility] 1-14 12-05 tablet by [facility] tablet 00:00: 00:00 mouth [place] 00 :00 daily. Medical [facility] SERTraline 2020-0 2021- No [id number] 25mg Take 1 [facility] 25 mg 1-14 12-05 tablet by [facility] tablet 00:00: 00:00 mouth [place] 00 :00 daily. Medical [facility] SERTraline 2020-0 2021- No [id number] 25mg Take 1 [facility] 25 mg 1-14 12-05 tablet by [facility] tablet 00:00: 00:00 mouth [place] 00 :00 daily. Medical Branch busPIRone 2020-0 Yes [id number] 15mg Take 1 [facility] 15 mg 1-13 tablet by [facility] tablet 00:00: mouth [address] [place] [address] 00 (two) Medical times Branch daily. busPIRone 2020-0 Yes [id number] 15mg Take 1 [facility] 15 mg 1-13 tablet by [facility] tablet 00:00: mouth [address] [place] [address] (two) Medical times Branch daily. busPIRone 2020-0 Yes [id number] 15mg Take 1 [facility] 15 mg 1-13 tablet by [facility] tablet 00:00: mouth [address] [place] [address] (two) [facility] times [facility] daily. busPIRone 2020-0 Yes [id number] 15mg Take 1 [facility] 15 mg 1-13 tablet by [facility] tablet 00:00: mouth [address] [place] [address] (two) [facility] times [facility] daily. busPIRone 2020-0 Yes [id number] 15mg Take 1 [facility] 15 mg 1-13 tablet by [facility] tablet 00:00: mouth [address] [place] [address] (two) [facility] times [facility] daily. busPIRone 2020-0 Yes [id number] 15mg Take 1 [facility] 15 mg 1-13 tablet by [facility] tablet 00:00: mouth [address] [place] [address] 00 (two) [facility] times [facility] daily. busPIRone 2020-0 Yes [id number] 15mg Take 1 [facility] 15 mg 1-13 tablet by [facility] tablet 00:00: mouth [address] [place] [address] (two) [facility] times [facility] daily. busPIRone 2020-0 Yes [id number] 15mg Take 1 [facility] 15 mg 1-13 tablet by [facility] tablet 00:00: mouth [address] [place] [address] (two) [facility] times [facility] daily. busPIRone 2020-0 Yes [id number] 15mg Take 1 [facility] 15 mg 1-13 tablet by [facility] tablet 00:00: mouth (two) [facility] times [facility] daily. [facility]one 2020-0 Yes [id number] 15mg Take 1 [facility] 15 mg 1-13 tablet by [facility] tablet 00:00: mouth (two) [facility] times [facility] daily. busPIRone 2020-0 Yes [id number] 15mg Take 1 [facility] 15 mg 1-13 tablet by [facility] tablet 00:00: mouth (two) [facility] times [facility] daily. busPIRone 2020-0 Yes [id number] 15mg Take 1 [facility] 15 mg 1-13 tablet by [facility] tablet 00:00: mouth (two) [facility] times [facility] daily. busPIRone 2020-0 Yes [id number] 15mg Take 1 [facility] 15 mg 1-13 tablet by [facility] tablet 00:00: mouth (two) [facility] times [facility] daily. [facility]PIRone 2020-0 Yes [id number] 15mg Take 1 [facility] 15 mg 1-13 tablet by [facility] tablet 00:00: mouth (two) [facility] times [facility] daily. [facility]IRone 2020-0 Yes [id number] 15mg Take 1 [facility] 15 mg 1-13 tablet by [facility] tablet 00:00: mouth (two) [facility] times [facility] daily. [facility]one 2020-0 Yes [id number] 15mg Take 1 [facility] 15 mg 1-13 tablet by [facility] tablet 00:00: mouth (two) [facility] times [facility] daily. [facility]PIRone 2020-0 Yes [id number] 15mg Take 1 [facility] 15 mg 1-13 tablet by [facility] tablet 00:00: mouth (two) [facility] times [facility] daily. [facility]one 2020-0 Yes [id number] 15mg Take 1 [facility] 15 mg 1-13 tablet by [facility] tablet 00:00: mouth (two) [facility] times [facility] daily[facility] busPIRone 2020-0 Yes [id number] 15mg Take 1 [facility] 15 mg 1-13 tablet by [facility] tablet 00:00: mouth (two) [facility] times [facility] daily[facility]PIRone 2020-0 Yes [id number] 15mg Take 1 [facility] 15 mg 1-13 tablet by [facility] tablet 00:00: mouth (two) [facility] times [facility] daily. [facility]IRone 2020-0 Yes [id number] 15mg Take 1 [facility] 15 mg 1-13 tablet by [facility] tablet 00:00: mouth (two) [facility] times [facility] daily. [facility]one 2020-0 Yes [id number] 15mg Take 1 [facility] 15 mg 1-13 tablet by [facility] tablet 00:00: mouth (two) [facility] times [facility] daily[facility]one 2020-0 Yes [id number] 15mg Take 1 [facility] 15 mg 1-13 tablet by [facility] tablet 00:00: mouth (two) [facility] times [facility] daily. [facility]PIRone 2020-0 Yes [id number] 15mg Take 1 [facility] 15 mg 1-13 tablet by [facility] tablet 00:00: mouth (two) [facility] times [facility] daily. [facility]IRone 2020-0 Yes [id number] 15mg Take 1 [facility] 15 mg 1-13 tablet by [facility] tablet 00:00: mouth (two) [facility] times [facility] daily. [facility]one 2020-0 Yes [id number] 15mg Take 1 [facility] 15 mg 1-13 tablet by [facility] tablet 00:00: mouth (two) [facility] times [facility] daily. [facility]IRone 2020-0 Yes [id number] 15mg Take 1 [facility] 15 mg 1-13 tablet by [facility] tablet 00:00: mouth (two) [facility] times [facility] daily. [facility]PIRone 2020-0 Yes [id number] 15mg Take 1 [facility] 15 mg 1-13 tablet by [facility] tablet 00:00: mouth (two) [facility] times [facility] daily[facility]PIRone 2020-0 Yes [id number] 15mg Take 1 [facility] 15 mg 1-13 tablet by [facility] tablet 00:00: mouth 2 (two) [facility] times [facility] daily. [facility]PIRone 2020-0 Yes [id number] 15mg Take 1 [facility] 15 mg 1-13 tablet by [facility] tablet 00:00: mouth (two) [facility] times [facility] daily. [facility]PIRone 2020-0 Yes [id number] 15mg Take 1 [facility] 15 mg 1-13 tablet by [facility] tablet 00:00: mouth (two) [facility] times [facility] daily. [facility]PIRone 2020-0 Yes [id number] 15mg Take 1 [facility] 15 mg 1-13 tablet by [facility] tablet 00:00: mouth (two) [facility] times [facility] daily. [facility]PIRone 2020-0 Yes [id number] 15mg Take 1 [facility] 15 mg 1-13 tablet by [facility] tablet 00:00: mouth (two) [facility] times [facility] daily. busPIRone 2020-0 Yes [id number] 15mg Take 1 [facility] 15 mg 1-13 tablet by [facility] tablet 00:00: mouth (two) [facility] times [facility] daily. [facility]PIRone 2020-0 Yes [id number] 15mg Take 1 [facility] 15 mg 1-13 tablet by [facility] tablet 00:00: mouth (two) [facility] times [facility] daily. busPIRone 2020-0 Yes [id number] 15mg Take 1 [facility] 15 mg 1-13 tablet by [facility] tablet 00:00: mouth (two) [facility] times [facility] daily. busPIRone 2020-0 Yes [id number] 15mg Take 1 [facility] 15 mg 1-13 tablet by [facility] tablet 00:00: mouth (two) [facility] times [facility] daily. [facility]PIRone 2020-0 Yes [id number] 15mg Take 1 [facility] 15 mg 1-13 tablet by [facility] tablet 00:00: mouth (two) [facility] times [facility] daily. busPIRone 2020-0 Yes [id number] 15mg Take 1 [facility] 15 mg 1-13 tablet by [facility] tablet 00:00: mouth (two) [facility] times [facility] daily. busPIRone 2020-0 Yes [id number] 15mg Take 1 [facility] 15 mg 1-13 tablet by [facility] tablet 00:00: mouth (two) [facility] times [facility] daily. busPIRone 2020-0 Yes [id number] 15mg Take 1 [facility] 15 mg 1-13 tablet by [facility] tablet 00:00: mouth [address] [place] [address] (two) [facility] times [facility] daily. busPIRone 2020-0 Yes [id number] 15mg Take 1 [facility] 15 mg 1-13 tablet by [facility] tablet 00:00: mouth (two) [facility] times [facility] daily. busPIRone 2020-0 Yes [id number] 15mg Take 1 [facility] 15 mg 1-13 tablet by [facility] tablet 00:00: mouth (two) [facility] times [facility] daily. [facility]PIRone 2020-0 Yes [id number] 15mg Take 1 [facility] 15 mg 1-13 tablet by [facility] tablet 00:00: mouth (two) [facility] times [facility] daily. [facility]PIRone 2020-0 Yes [id number] 15mg Take 1 [facility] 15 mg 1-13 tablet by [facility] tablet 00:00: mouth (two) [facility] times [facility] daily. [facility]PIRone 2020-0 Yes [id number] 15mg Take 1 [facility] 15 mg 1-13 tablet by [facility] tablet 00:00: mouth (two) [facility] times [facility] daily. busPIRone 2020-0 Yes [id number] 15mg Take 1 [facility] 15 mg 1-13 tablet by [facility] tablet 00:00: mouth (two) [facility] times [facility] daily. busPIRone 2020-0 Yes [id number] 15mg Take 1 [facility] 15 mg 1-13 tablet by [facility] tablet 00:00: mouth (two) [facility] times [facility] daily. busPIRone 2020-0 Yes [id number] 15mg Take 1 [facility] 15 mg 1-13 tablet by [facility] tablet 00:00: mouth (two) [facility] times [facility] daily. busPIRone 2020-0 Yes [id number] 15mg Take 1 [facility] 15 mg 1-13 tablet by [facility] tablet 00:00: mouth (two) [facility] times [facility] daily. busPIRone 2020-0 Yes [id number] 15mg Take 1 [facility] 15 mg 1-13 tablet by [facility] tablet 00:00: mouth 2 (two) [facility] times [facility] daily. busPIRone 2020-0 Yes [id number] 15mg Take 1 [facility] 15 mg 1-13 tablet by [facility] tablet 00:00: mouth 2 (two) [facility] times [facility] daily. busPIRone 2020-0 Yes [id number] 15mg Take 1 [facility] 15 mg 1-13 tablet by [facility] tablet 00:00: mouth (two) [facility] times [facility] daily. busPIRone 2020-0 Yes [id number] 15mg Take 1 [facility] 15 mg 1-13 tablet by [facility] tablet 00:00: mouth (two) [facility] times [facility] daily. [facility]IRone 2020-0 Yes [id number] 15mg Take 1 [facility] 15 mg 1-13 tablet by [facility] tablet 00:00: mouth (two) [facility] times [facility] daily. busPIRone 2020-0 Yes [id number] 15mg Take 1 [facility] 15 mg 1-13 tablet by [facility] tablet 00:00: mouth (two) [facility] times [facility] daily. busPIRone 2020-0 Yes [id number] 15mg Take 1 [facility] 15 mg 1-13 tablet by [facility] tablet 00:00: mouth (two) [facility] times [facility] daily. busPIRone 2020-0 Yes [id number] 15mg Take 1 [facility] 15 mg 1-13 tablet by [facility] tablet 00:00: mouth [place] (two) [facility] times [facility] daily. busPIRone 2020-0 Yes [id number] 15mg Take 1 [facility] 15 mg 1-13 tablet by [facility] tablet 00:00: mouth (two) [facility] times [facility] daily. busPIRone 2020-0 Yes [id number] 15mg Take 1 [facility] 15 mg 1-13 tablet by [facility] tablet 00:00: mouth [place] (two) [facility] times [facility] daily. busPIRone 2020-0 Yes [id number] 15mg Take 1 [facility] 15 mg 1-13 tablet by [facility] tablet 00:00: mouth (two) [facility] times [facility] daily. busPIRone 2020-0 Yes [id number] 15mg Take 1 [facility] 15 mg 1-13 tablet by [facility] tablet 00:00: mouth (two) [facility] times [facility] daily. busPIRone 2020-0 Yes [id number] 15mg Take 1 [facility] 15 mg 1-13 tablet by [facility] tablet 00:00: mouth (two) [facility] times [facility] daily. busPIRone 2020-0 Yes [id number] 15mg Take 1 [facility] 15 mg 1-13 tablet by [facility] tablet 00:00: mouth (two) [facility] times [facility] daily. [facility]PIRone 2020-0 Yes [id number] 15mg Take 1 [facility] 15 mg 1-13 tablet by [facility] tablet 00:00: mouth (two) [facility] times [facility] daily. busPIRone 2020-0 Yes [id number] 15mg Take 1 [facility] 15 mg 1-13 tablet by [facility] tablet 00:00: mouth (two) [facility] times [facility] daily. busPIRone 2020-0 Yes [id number] 15mg Take 1 [facility] 15 mg 1-13 tablet by [facility] tablet 00:00: mouth (two) [facility] times [facility] daily. busPIRone 2020-0 Yes [id number] 15mg Take 1 [facility] 15 mg 1-13 tablet by [facility] tablet 00:00: mouth (two) [facility] times [facility] daily. busPIRone 2020-0 Yes [id number] 15mg Take 1 [facility] 15 mg 1-13 tablet by [facility] tablet 00:00: mouth (two) [facility] times [facility] daily. busPIRone 2020-0 Yes [id number] 15mg Take 1 [facility] 15 mg 1-13 tablet by [facility] tablet 00:00: mouth (two) [facility] times [facility] daily. busPIRone 2020-0 Yes [id number] 15mg Take 1 [facility] 15 mg 1-13 tablet by [facility] tablet 00:00: mouth (two) [facility] times [facility] daily. busPIRone 2020-0 Yes [id number] 15mg Take 1 [facility] 15 mg 1-13 tablet by [facility] tablet 00:00: mouth (two) [facility] times [facility] daily. busPIRone 2020-0 Yes [id number] 15mg Take 1 [facility] 15 mg 1-13 tablet by [facility] tablet 00:00: mouth (two) [facility] times [facility] daily. [facility]PIRone 2020-0 Yes [id number] 15mg Take 1 [facility] 15 mg 1-13 tablet by [facility] tablet 00:00: mouth (two) [facility] times [facility] daily. busPIRone 2020-0 Yes [id number] 15mg Take 1 [facility] 15 mg 1-13 tablet by [facility] tablet 00:00: mouth (two) [facility] times [facility] daily. busPIRone 2020-0 Yes [id number] 15mg Take 1 [facility] 15 mg 1-13 tablet by [facility] tablet 00:00: mouth (two) [facility] times [facility] daily. busPIRone 2020-0 Yes [id number] 15mg Take 1 [facility] 15 mg 1-13 tablet by [facility] tablet 00:00: mouth (two) [facility] times [facility] daily. busPIRone 2020-0 Yes [id number] 15mg Take 1 [facility] 15 mg 1-13 tablet by [facility] tablet 00:00: mouth (two) [facility] times [facility] daily. busPIRone 2020-0 Yes [id number] 15mg Take 1 [facility] 15 mg 1-13 tablet by [facility] tablet 00:00: mouth (two) [facility] times [facility] daily. busPIRone 2020-0 Yes [id number] 15mg Take 1 [facility] 15 mg 1-13 tablet by [facility] tablet 00:00: mouth (two) [facility] times [facility] daily. busPIRone 2020-0 Yes [id number] 15mg Take 1 [facility] 15 mg 1-13 tablet by [facility] tablet 00:00: mouth (two) [facility] times [facility] daily. busPIRone 2020-0 Yes [id number] 15mg Take 1 [facility] 15 mg 1-13 tablet by [facility] tablet 00:00: mouth (two) [facility] times [facility] daily. busPIRone 2020-0 Yes [id number] 15mg Take 1 [facility] 15 mg 1-13 tablet by [facility] tablet 00:00: mouth (two) [facility] times [facility] daily. busPIRone 2020-0 Yes [id number] 15mg Take 1 [facility] 15 mg 1-13 tablet by [facility] tablet 00:00: mouth (two) [facility] times [facility] daily. busPIRone 2020-0 Yes [id number] 15mg Take 1 [facility] 15 mg 1-13 tablet by [facility] tablet 00:00: mouth (two) [facility] times [facility] daily. busPIRone 2020-0 Yes [id number] 15mg Take 1 [facility] 15 mg 1-13 tablet by [facility] tablet 00:00: mouth (two) [facility] times [facility] daily. busPIRone 2020-0 Yes [id number] 15mg Take 1 [facility] 15 mg 1-13 tablet by [facility] tablet 00:00: mouth (two) [facility] times [facility] daily. busPIRone 2020-0 Yes [id number] 15mg Take 1 [facility] 15 mg 1-13 tablet by [facility] tablet 00:00: mouth (two) [facility] times [facility] daily. busPIRone 2020-0 Yes [id number] 15mg Take 1 [facility] 15 mg 1-13 tablet by [facility] tablet 00:00: mouth (two) [facility] times [facility] daily. busPIRone 2020-0 Yes [id number] 15mg Take 1 [facility] 15 mg 1-13 tablet by [facility] tablet 00:00: mouth (two) [facility] times [facility] daily. busPIRone 2020-0 Yes [id number] 15mg Take 1 [facility] 15 mg 1-13 tablet by [facility] tablet 00:00: mouth [place] (two) Medical times [facility] daily. busPIRone 2020-0 Yes [id number] 15mg Take 1 [facility] 15 mg 1-13 tablet by [facility] tablet 00:00: mouth [place] (two) [facility] times [facility] daily. busPIRone 2020-0 Yes [id number] 15mg Take 1 [facility] 15 mg 1-13 tablet by [facility] tablet 00:00: mouth (two) [facility] times [facility] daily. busPIRone 2020-0 Yes [id number] 15mg Take 1 [facility] 15 mg 1-13 tablet by [facility] tablet 00:00: mouth [place] (two) [facility] times [facility] daily. busPIRone 2020-0 Yes [id number] 15mg Take 1 [facility] 15 mg 1-13 tablet by [facility] tablet 00:00: mouth [place] (two) [facility] times [facility] daily. busPIRone 2020-0 Yes [id number] 15mg Take 1 [facility] 15 mg 1-13 tablet by [facility] tablet 00:00: mouth (two) [facility] times [facility] daily. busPIRone 2020-0 Yes [id number] 15mg Take 1 [facility] 15 mg 1-13 tablet by [facility] tablet 00:00: mouth (two) [facility] times [facility] daily. busPIRone 2020-0 Yes [id number] 15mg Take 1 [facility] 15 mg 1-13 tablet by [facility] tablet 00:00: mouth (two) [facility] times [facility] daily. busPIRone 2020-0 Yes [id number] 15mg Take 1 [facility] 15 mg 1-13 tablet by [facility] tablet 00:00: mouth (two) [facility] times [facility] daily. busPIRone 2020-0 Yes [id number] 15mg Take 1 [facility] 15 mg 1-13 tablet by [facility] tablet 00:00: mouth (two) [facility] times [facility] daily. busPIRone 2020-0 Yes [id number] 15mg Take 1 [facility] 15 mg 1-13 tablet by [facility] tablet 00:00: mouth (two) [facility] times [facility] daily. busPIRone 2020-0 Yes [id number] 15mg Take 1 [facility] 15 mg 1-13 tablet by [facility] tablet 00:00: mouth (two) [facility] times [facility] daily. busPIRone 2020-0 Yes [id number] 15mg Take 1 [facility] 15 mg 1-13 tablet by [facility] tablet 00:00: mouth (two) [facility] times [facility] daily. [facility]PIRone 2020-0 Yes [id number] 15mg Take 1 [facility] 15 mg 1-13 tablet by [facility] tablet 00:00: mouth (two) [facility] times [facility] daily. busPIRone 2020-0 Yes [id number] 15mg Take 1 [facility] 15 mg 1-13 tablet by [facility] tablet 00:00: mouth (two) [facility] times [facility] daily. busPIRone 2020-0 Yes [id number] 15mg Take 1 [facility] 15 mg 1-13 tablet by [facility] tablet 00:00: mouth (two) [facility] times [facility] daily. busPIRone 2020-0 Yes [id number] 15mg Take 1 [facility] 15 mg 1-13 tablet by [facility] tablet 00:00: mouth (two) [facility] times [facility] daily. busPIRone 2020-0 Yes [id number] 15mg Take 1 [facility] 15 mg 1-13 tablet by [facility] tablet 00:00: mouth (two) [facility] times [facility] daily. busPIRone 2020-0 Yes [id number] 15mg Take 1 [facility] 15 mg 1-13 tablet by [facility] tablet 00:00: mouth (two) [facility] times [facility] daily. busPIRone 2020-0 Yes [id number] 15mg Take 1 [facility] 15 mg 1-13 tablet by [facility] tablet 00:00: mouth (two) [facility] times [facility] daily. busPIRone 2020-0 Yes [id number] 15mg Take 1 [facility] 15 mg 1-13 tablet by [facility] tablet 00:00: mouth (two) [facility] times [facility] daily. busPIRone 2020-0 Yes [id number] 15mg Take 1 [facility] 15 mg 1-13 tablet by [facility] tablet 00:00: mouth (two) [facility] times [facility] daily. busPIRone 2020-0 Yes [id number] 15mg Take 1 [facility] 15 mg 1-13 tablet by [facility] tablet 00:00: mouth (two) [facility] times [facility] daily. busPIRone 2020-0 Yes [id number] 15mg Take 1 [facility] 15 mg 1-13 tablet by [facility] tablet 00:00: mouth (two) [facility] times [facility] daily. busPIRone 2020-0 Yes [id number] 15mg Take 1 [facility] 15 mg 1-13 tablet by [facility] tablet 00:00: mouth (two) [facility] times [facility] daily. busPIRone 2020-0 Yes [id number] 15mg Take 1 [facility] 15 mg 1-13 tablet by [facility] tablet 00:00: mouth (two) [facility] times [facility] daily[facility] busPIRone 2020-0 Yes [id number] 15mg Take 1 [facility] 15 mg 1-13 tablet by [facility] tablet 00:00: mouth (two) [facility] times [facility] daily. busPIRone 2020-0 Yes [id number] 15mg Take 1 [facility] 15 mg 1-13 tablet by [facility] tablet 00:00: mouth (two) [facility] times [facility] daily. busPIRone 2020-0 Yes [id number] 15mg Take 1 [facility] 15 mg 1-13 tablet by [facility] tablet 00:00: mouth (two) [facility] times [facility] daily. busPIRone 2020-0 Yes [id number] 15mg Take 1 [facility] 15 mg 1-13 tablet by [facility] tablet 00:00: mouth (two) [facility] times [facility] daily. busPIRone 2020-0 Yes [id number] 15mg Take 1 [facility] 15 mg 1-13 tablet by [facility] tablet 00:00: mouth (two) [facility] times [facility] daily. busPIRone 2020-0 Yes [id number] 15mg Take 1 [facility] 15 mg 1-13 tablet by [facility] tablet 00:00: mouth (two) [facility] times [facility] daily. busPIRone 2020-0 Yes [id number] 15mg Take 1 [facility] 15 mg 1-13 tablet by [facility] tablet 00:00: mouth (two) [facility] times [facility] daily. busPIRone 2020-0 Yes [id number] 15mg Take 1 [facility] 15 mg 1-13 tablet by [facility] tablet 00:00: mouth (two) [facility] times [facility] daily. busPIRone 2020-0 Yes [id number] 15mg Take 1 [facility] 15 mg 1-13 tablet by [facility] tablet 00:00: mouth (two) [facility] times [facility] daily. busPIRone 2020-0 Yes [id number] 15mg Take 1 [facility] 15 mg 1-13 tablet by [facility] tablet 00:00: mouth (two) [facility] times [facility] daily. busPIRone 2020-0 Yes [id number] 15mg Take 1 [facility] 15 mg 1-13 tablet by [facility] tablet 00:00: mouth (two) [facility] times [facility] daily. busPIRone 2020-0 Yes [id number] 15mg Take 1 [facility] 15 mg 1-13 tablet by [facility] tablet 00:00: mouth (two) [facility] times [facility] daily. busPIRone 2020-0 Yes [id number] 15mg Take 1 [facility] 15 mg 1-13 tablet by [facility] tablet 00:00: mouth (two) [facility] times [facility] daily. busPIRone 2020-0 Yes [id number] 15mg Take 1 [facility] 15 mg 1-13 tablet by [facility] tablet 00:00: mouth (two) [facility] times [facility] daily[facility] busPIRone 2020-0 Yes [id number] 15mg Take 1 [facility] 15 mg 1-13 tablet by [facility] tablet 00:00: mouth (two) [facility] times [facility] daily. busPIRone 2020-0 Yes [id number] 15mg Take 1 [facility] 15 mg 1-13 tablet by [facility] tablet 00:00: mouth (two) [facility] times [facility] daily. busPIRone 2020-0 Yes [id number] 15mg Take 1 [facility] 15 mg 1-13 tablet by [facility] tablet 00:00: mouth (two) [facility] times [facility] daily[facility]PIRone 2020-0 Yes [id number] 15mg Take 1 [facility] 15 mg 1-13 tablet by [facility] tablet 00:00: mouth (two) [facility] times [facility] daily. [facility]PIRone 2020-0 Yes [id number] 15mg Take 1 [facility] 15 mg 1-13 tablet by [facility] tablet 00:00: mouth (two) [facility] times [facility] daily. busPIRone 2020-0 Yes [id number] 15mg Take 1 [facility] 15 mg 1-13 tablet by [facility] tablet 00:00: mouth (two) [facility] times [facility] daily. busPIRone 2020-0 Yes [id number] 15mg Take 1 [facility] 15 mg 1-13 tablet by [facility] tablet 00:00: mouth (two) Medical times [facility] daily. busPIRone 2020-0 Yes [id number] 15mg Take 1 [facility] 15 mg 1-13 tablet by [facility] tablet 00:00: mouth (two) [facility] times [facility] daily. busPIRone 2020-0 Yes [id number] 15mg Take 1 [facility] 15 mg 1-13 tablet by [facility] tablet 00:00: mouth 2 (two) Medical times [facility] daily. busPIRone 2020-0 Yes [id number] 15mg Take 1 [facility] 15 mg 1-13 tablet by [facility] tablet 00:00: mouth [place] (two) Medical times [facility] daily. busPIRone 2020-0 Yes [id number] 15mg Take 1 [facility] 15 mg 1-13 tablet by [facility] tablet 00:00: mouth [place] (two) Medical times [facility] daily. busPIRone 2020-0 Yes [id number] 15mg Take 1 [facility] 15 mg 1-13 tablet by [facility] tablet 00:00: mouth (two) Medical times [facility] daily. busPIRone 2020-0 Yes [id number] 15mg Take 1 [facility] 15 mg 1-13 tablet by [facility] of tablet 00:00: mouth [place] (two) Medical times [facility] daily. busPIRone 2020-0 Yes [id number] 15mg Take 1 [facility] 15 mg 1-13 tablet by [facility] tablet 00:00: mouth [place] (two) Medical times [facility] daily. [facility]PIRone 2020-0 Yes [id number] 15mg Take 1 [facility] 15 mg 1-13 tablet by [facility] of tablet 00:00: mouth [place] (two) [facility] times [facility] daily. [facility]PIRone 2020-0 Yes [id number] 15mg Take 1 [facility] 15 mg 1-13 tablet by [facility] of tablet 00:00: mouth [place] (two) Medical times [facility] daily. [facility]PIRone 2020-0 Yes [id number] 15mg Take 1 [facility] 15 mg 1-13 tablet by [facility] of tablet 00:00: mouth [place] (two) Medical times [facility] daily. [facility]PIRone 2020-0 Yes [id number] 15mg Take 1 [facility] 15 mg 1-13 tablet by [facility] tablet 00:00: mouth [place] (two) Medical times [facility] daily. [facility]PIRone 2020-0 Yes [id number] 15mg Take 1 [facility] 15 mg 1-13 tablet by [facility] of tablet 00:00: mouth [place] (two) Medical times [facility] daily. [facility]PIRone 2020-0 Yes [id number] 15mg Take 1 [facility] 15 mg 1-13 tablet by [facility] tablet 00:00: mouth (two) Medical times [facility] daily. busPIRone 2020-0 Yes [id number] 15mg Take 1 [facility] 15 mg 1-13 tablet by [facility] tablet 00:00: mouth (two) Medical times [facility] daily. busPIRone 2020-0 Yes [id number] 15mg Take 1 [facility] 15 mg 1-13 tablet by [facility] tablet 00:00: mouth (two) [facility] times [facility] daily. busPIRone 2020-0 Yes [id number] 15mg Take 1 [facility] 15 mg 1-13 tablet by [facility] tablet 00:00: mouth (two) Medical times [facility] daily. busPIRone 2020-0 Yes [id number] 15mg Take 1 [facility] 15 mg 1-13 tablet by [facility] tablet 00:00: mouth (two) Medical times [facility] daily. busPIRone 2020-0 Yes [id number] 15mg Take 1 [facility] 15 mg 1-13 tablet by [facility] of tablet 00:00: mouth (two) [facility] times [facility] daily. busPIRone 2020-0 Yes [id number] 15mg Take 1 [facility] 15 mg 1-13 tablet by [facility] tablet 00:00: mouth (two) [facility] times [facility] daily. busPIRone 2020-0 Yes [id number] 15mg Take 1 [facility] 15 mg 1-13 tablet by [facility] tablet 00:00: mouth (two) Medical times [facility] daily. busPIRone 2020-0 Yes [id number] 15mg Take 1 [facility] 15 mg 1-13 tablet by [facility] tablet 00:00: mouth (two) Medical times [facility] daily. busPIRone 2020-0 Yes [id number] 15mg Take 1 [facility] 15 mg 1-13 tablet by [facility] tablet 00:00: mouth (two) [facility] times [facility] daily. busPIRone 2020-0 Yes [id number] 15mg Take 1 [facility] 15 mg 1-13 tablet by [facility] tablet 00:00: mouth (two) [facility] times [facility] daily. busPIRone 2020-0 Yes [id number] 15mg Take 1 [facility] 15 mg 1-13 tablet by [facility] of tablet 00:00: mouth (two) [facility] times [facility] daily. busPIRone 2020-0 Yes [id number] 15mg Take 1 [facility] 15 mg 1-13 tablet by [facility] tablet 00:00: mouth (two) Medical times [facility] daily. busPIRone 2020-0 Yes [id number] 15mg Take 1 [facility] 15 mg 1-13 tablet by [facility] tablet 00:00: mouth (two) Medical times [facility] daily. busPIRone 2020-0 Yes [id number] 15mg Take 1 [facility] 15 mg 1-13 tablet by [facility] tablet 00:00: mouth (two) [facility] times [facility] daily. busPIRone 2020-0 Yes [id number] 15mg Take 1 [facility] 15 mg 1-13 tablet by [facility] tablet 00:00: mouth (two) [facility] times [facility] daily. busPIRone 2020-0 Yes [id number] 15mg Take 1 [facility] 15 mg 1-13 tablet by [facility] tablet 00:00: mouth (two) Medical times [facility] daily. busPIRone 2020-0 Yes [id number] 15mg Take 1 [facility] 15 mg 1-13 tablet by [facility] tablet 00:00: mouth (two) Medical times [facility] daily. busPIRone 2020-0 Yes [id number] 15mg Take 1 [facility] 15 mg 1-13 tablet by [facility] tablet 00:00: mouth (two) Medical times [facility] daily. busPIRone 2020-0 Yes [id number] 15mg Take 1 [facility] 15 mg 1-13 tablet by [facility] tablet 00:00: mouth (two) Medical times [facility] daily. busPIRone 2020-0 Yes [id number] 15mg Take 1 [facility] 15 mg 1-13 tablet by [facility] tablet 00:00: mouth (two) Medical times [facility] daily. busPIRone 2020-0 Yes [id number] 15mg Take 1 [facility] 15 mg 1-13 tablet by [facility] of tablet 00:00: mouth (two) Medical times [facility] daily. busPIRone 2020-0 Yes [id number] 15mg Take 1 [facility] 15 mg 1-13 tablet by [facility] tablet 00:00: mouth (two) Medical times [facility] daily. busPIRone 2020-0 Yes [id number] 15mg Take 1 [facility] 15 mg 1-13 tablet by [facility] tablet 00:00: mouth (two) Medical times [facility] daily. busPIRone 2020-0 Yes [id number] 15mg Take 1 [facility] 15 mg 1-13 tablet by [facility] tablet 00:00: mouth (two) Medical times [facility] daily. busPIRone 2020-0 Yes [id number] 15mg Take 1 [facility] 15 mg 1-13 tablet by [facility] tablet 00:00: mouth (two) Medical times [facility] daily. busPIRone 2020-0 Yes [id number] 15mg Take 1 [facility] 15 mg 1-13 tablet by [facility] tablet 00:00: mouth (two) Medical times [facility] daily. busPIRone 2020-0 Yes [id number] 15mg Take 1 [facility] 15 mg 1-13 tablet by [facility] tablet 00:00: mouth (two) Medical times [facility] daily. busPIRone 2020-0 Yes [id number] 15mg Take 1 [facility] 15 mg 1-13 tablet by [facility] tablet 00:00: mouth (two) Medical times [facility] daily. busPIRone 2020-0 Yes [id number] 15mg Take 1 [facility] 15 mg 1-13 tablet by [facility] tablet 00:00: mouth (two) Medical times Branch daily. busPIRone 2020-0 Yes [id number] 15mg Take 1 U nivers 15 mg 1-13 tablet by ity of tablet 00:00: mouth (two) Medical times Branch daily. busPIRone 2020-0 Yes [id number] 15mg Take 1 [facility] nivers 15 mg 1-13 tablet by ity of tablet 00:00: mouth (two) Medical times Branch daily. busPIRone 2020-0 Yes [id number] 15mg Take 1 [facility] nivers 15 mg 1-13 tablet by ity of tablet 00:00: mouth (two) Medical times Branch daily. busPIRone 2020-0 Yes [id number] 15mg Take 1 [facility] nivers 15 mg 1-13 tablet by ity of tablet 00:00: mouth 2 [place] 00 (two) Medical times Branch daily. amantadine 2018- Yes [id number] 200mg Take 20 mL [facility] HCl 50 mg/5 0-18 by mouth 2 it y of mL solution 00:00: (two) [place] 00 times Medical daily. Branch amantadine 2018- Yes [id number] 200mg Take 20 mL [facility] HCl 50 mg/5 0-18 by mouth 2 it y of mL solution 00:00: (two) [place] 00 times Medical daily. Branch amantadine 2018- Yes [id number] 200mg Take 20 mL [facility] HCl 50 mg/5 0-18 by mouth 2 it y of mL solution 00:00: (two) [place] 00 times Medical daily. Branch amantadine 2018- Yes [id number] 200mg Take 20 mL [facility] HCl 50 mg/5 0-18 by mouth 2 it y of mL solution 00:00: (two) [place] 00 times Medical daily. [place] amantadine 2018- Yes [id number] 200mg Take 20 mL [facility] HCl 50 mg/5 0-18 by mouth 2 it y of mL solution 00:00: (two) [place] 00 times Medical daily. Branch amantadine 2018- Yes [id number] 200mg Take 20 mL [facility] HCl 50 mg/5 0-18 by mouth 2 it y of mL solution 00:00: (two) [place] 00 times Medical daily. Branch amantadine 2018- Yes [id number] 200mg Take 20 mL [facility] HCl 50 mg/5 0-18 by mouth 2 it y of mL solution 00:00: (two) [place] 00 times Medical daily. Branch amantadine 2018- Yes [id number] 200mg Take 20 mL [facility] HCl 50 mg/5 0-18 by mouth 2 it y of mL solution 00:00: (two) [place] 00 times Medical daily. Branch amantadine 2018- Yes [id number] 200mg Take 20 mL [facility] HCl 50 mg/5 0-18 by mouth 2 it y of mL solution 00:00: (two) [place] 00 times Medical daily. Branch amantadine 2018- Yes [id number] 200mg Take 20 mL [facility] HCl 50 mg/5 0-18 by mouth 2 it y of mL solution 00:00: (two) [place] 00 times Medical daily. Branch amantadine 2018-07 Yes [id number] 200mg Take 20 mL [facility] HCl 50 mg/5 0-18 by mouth 2 it y of mL solution 00:00: (two) [place] 00 times Medical daily. Branch amantadine 2018-07 Yes [id number] 200mg Take 20 mL [facility] HCl 50 mg/5 0-18 by mouth 2 it y of mL solution 00:00: (two) [place] 00 times Medical daily. Branch amantadine 2018-07 Yes [id number] 200mg Take 20 mL [facility] HCl 50 mg/5 0-18 by mouth 2 it y of mL solution 00:00: (two) [place] 00 times Medical daily. Branch amantadine 2018-07 Yes [id number] 200mg Take 20 mL [facility] HCl 50 mg/5 0-18 by mouth 2 it y of mL solution 00:00: (two) [place] 00 times Medical daily. Branch amantadine 2018-07 Yes [id number] 200mg Take 20 mL [facility] HCl 50 mg/5 0-18 by mouth 2 it y of mL solution 00:00: (two) [place] 00 times Medical daily. Branch amantadine 2018-07 Yes [id number] 200mg Take 20 mL [facility] HCl 50 mg/5 0-18 by mouth 2 it y of mL solution 00:00: (two) [place] 00 times Medical daily. Branch amantadine 2018-07 Yes [id number] 200mg Take 20 mL [facility] HCl 50 mg/5 0-18 by mouth 2 it y of mL solution 00:00: (two) [place] 00 times Medical daily. Branch amantadine 2018-07- No [id number] 200mg Take 20 mL [facility] HCl 50 mg/5 0-18 12-05 by mouth 2 i ty of mL solution 00:00: 00:00 (two) [place] 00 :[place] times Medical daily. Branch amantadine 2018-07- No [id number] 200mg Take 20 mL [facility] HCl 50 mg/5 0-18 12-05 by mouth 2 i ty of mL solution 00:00: 00:00 (two) [place] 00 :00 times Medical daily. Branch amantadine 2018-07- No [id number] 200mg Take 20 mL [facility] HCl 50 mg/5 0-18 12-05 by mouth 2 i ty of mL solution 00:00: 00:00 (two) [place] 00 :00 times Medical daily. Branch risperiDONE 2018-07 Yes [id number] .5mg Take 2 [facility] (RISPERDAL) 0-16 tablets by it y of 0.25 mg 00:00: mouth 2 [place] tablet 00 (two) Medical times Branch daily. AM/PM risperiDONE 2018-07 Yes [id number] .5mg Take 2 [facility] (RISPERDAL) 0-16 tablets by it y of 0.25 mg 00:00: mouth 2 [place] tablet 00 (two) Medical times Branch daily. AM/PM risperiDONE 2018-07 Yes [id number] .5mg Take 2 [facility] (RISPERDAL) 0-16 tablets by it y of 0.25 mg 00:00: mouth 2 [place] tablet 00 (two) Medical times Branch daily. AM/PM risperiDONE 2018-07 Yes [id number] .5mg Take 2 [facility] (RISPERDAL) 0-16 tablets by it y of 0.25 mg 00:00: mouth 2 [place] tablet 00 (two) Medical times Branch daily. AM/PM risperiDONE 2018-07 Yes [id number] .5mg Take 2 [facility] (RISPERDAL) 0-16 tablets by it y of 0.25 mg 00:00: mouth 2 [place] tablet 00 (two) Medical times Branch daily. AM/PM risperiDONE 2018-07 Yes [id number] .5mg Take 2 [facility] (RISPERDAL) 0-16 tablets by it y of 0.25 mg 00:00: mouth 2 [place] tablet 00 (two) Medical times Branch daily. AM/PM risperiDONE 2018-07 Yes [id number] .5mg Take 2 [facility] (RISPERDAL) 0-16 tablets by it y of 0.25 mg 00:00: mouth 2 [place] tablet 00 (two) Medical times Branch daily. AM/PM amantadine 2018-07 Yes [id number] 200mg Take 2 [facility] HCl 100 mg 0-15 capsules ity o f capsule 00:00: by mouth 2 [place] 00 (two) Medical times Branch daily. ARIPiprazol 2018-07 Yes [id number] 2mg Take 1 [facility] e (ABILIFY) 0-15 tablet by ity of 2 mg tablet 00:00: mouth [place] 00 daily. Medical Branch amantadine 2018-07 Yes [id number] 200mg Take 2 [facility] HCl 100 mg 0-15 capsules ity o f capsule 00:00: by mouth 2 [place] 00 (two) Medical times Branch daily. ARIPiprazol 2018-07 Yes [id number] 2mg Take 1 [facility] e (ABILIFY) 0-15 tablet by ity of 2 mg tablet 00:00: mouth 00 daily. Medical Branch amantadine 2018-07 Yes [id number] 200mg Take 2 [facility] HCl 100 mg 0-15 capsules ity o f capsule 00:00: by mouth 2 [place] 00 (two) Medical times Branch daily. ARIPiprazol 2018-07 Yes [id number] 2mg Take 1 [facility] e (ABILIFY) 0-15 tablet by ity of 2 mg tablet 00:00: mouth daily. Medical Branch amantadine 2018-07 Yes [id number] 200mg Take 2 [facility] HCl 100 mg 0-15 capsules ity o f capsule 00:00: by mouth 2 [place] 00 (two) Medical times Branch daily. amantadine 2018-07 Yes [id number] 200mg Take 2 [facility] HCl 100 mg 0-15 capsules ity o f capsule 00:00: by mouth 2 [place] 00 (two) Medical times Branch daily. amantadine 2018-07 Yes [id number] 200mg Take 2 [facility] HCl 100 mg 0-15 capsules ity o f capsule 00:00: by mouth 2 [place] 00 (two) Medical times Branch daily. amantadine 2018-07 Yes [id number] 200mg Take 2 [facility] HCl 100 mg 0-15 capsules ity o f capsule 00:00: by mouth 2 [place] 00 (two) Medical times Branch daily. amantadine 2018-07 Yes [id number] 200mg Take 2 [facility] HCl 100 mg 0-15 capsules ity o f capsule 00:00: by mouth 2 [place] 00 (two) Medical times Branch daily. amantadine 2018-07 Yes [id number] 200mg Take 2 [facility] HCl 100 mg 0-15 capsules ity o f capsule 00:00: by mouth 2 [place] 00 (two) Medical times Branch daily. amantadine 2018-07 Yes [id number] 200mg Take 2 [facility] HCl 100 mg 0-15 capsules ity o f capsule 00:00: by mouth 2 [place] 00 (two) Medical times Branch daily. amantadine 2018-07 Yes [id number] 200mg Take 2 [facility] HCl 100 mg 0-15 capsules ity o f capsule 00:00: by mouth 2 [place] 00 (two) Medical times Branch daily. amantadine 2018-07 Yes [id number] 200mg Take 2 [facility] HCl 100 mg 0-15 capsules ity o f capsule 00:00: by mouth 2 [place] 00 (two) Medical times Branch daily. amantadine 2018-07 Yes [id number] 200mg Take 2 [facility] HCl 100 mg 0-15 capsules ity o f capsule 00:00: by mouth 2 [place] 00 (two) Medical times Branch daily. amantadine 2018-07 Yes [id number] 200mg Take 2 [facility] HCl 100 mg 0-15 capsules ity o f capsule 00:00: by mouth 2 [place] 00 (two) Medical times Branch daily. amantadine 2018-07 Yes [id number] 200mg Take 2 [facility] HCl 100 mg 0-15 capsules ity o f capsule 00:00: by mouth 2 [place] 00 (two) Medical times Branch daily. amantadine 2018-07 Yes [id number] 200mg Take 2 [facility] HCl 100 mg 0-15 capsules ity o f capsule 00:00: by mouth 2 [place] 00 (two) Medical times Branch daily. amantadine 2018-07 Yes [id number] 200mg Take 2 [facility] HCl 100 mg 0-15 capsules ity o f capsule 00:00: by mouth 2 [place] 00 (two) Medical times Branch daily. amantadine 2018-07 Yes [id number] 200mg Take 2 [facility] HCl 100 mg 0-15 capsules ity o f capsule 00:00: by mouth 2 [place] 00 (two) Medical times Branch daily. amantadine 2018-07 Yes [id number] 200mg Take 2 [facility] HCl 100 mg 0-15 capsules ity o f capsule 00:00: by mouth 2 [place] 00 (two) Medical times Branch daily. amantadine 2018-07 Yes [id number] 200mg Take 2 [facility] HCl 100 mg 0-15 capsules ity o f capsule 00:00: by mouth 2 [place] 00 (two) Medical times Branch daily. amantadine 2018-07 Yes [id number] 200mg Take 2 [facility] HCl 100 mg 0-15 capsules ity o f capsule 00:00: by mouth 2 [place] 00 (two) Medical times Branch daily. ARIPiprazol 2018-07 Yes [id number] 2mg Take 1 [facility] e (ABILIFY) 0-15 tablet by ity of 2 mg tablet 00:00: mouth [place] 00 daily. Medical Branch amantadine 2018-07 Yes [id number] 200mg Take 2 [facility] HCl 100 mg 0-15 capsules ity o f capsule 00:00: by mouth 2 [place] 00 (two) Medical times Branch daily. ARIPiprazol 2018-07 Yes [id number] 2mg Take 1 [facility] e (ABILIFY) 0-15 tablet by ity of 2 mg tablet 00:00: mouth [place] 00 daily. [facility] Branch amantadine 2018-07 Yes [id number] 200mg Take 2 [facility] HCl 100 mg 0-15 capsules ity o f capsule 00:00: by mouth 2 [place] 00 (two) Medical times Branch daily. ARIPiprazol 2018-07 Yes [id number] 2mg Take 1 [facility] e (ABILIFY) 0-15 tablet by ity of 2 mg tablet 00:00: mouth [place] 00 daily. Medical Branch amantadine 2018-07 Yes [id number] 200mg Take 2 [facility] HCl 100 mg 0-15 capsules ity o f capsule 00:00: by mouth 2 [place] 00 (two) Medical times Branch daily. ARIPiprazol 2018-07 Yes [id number] 2mg Take 1 [facility] e (ABILIFY) 0-15 tablet by ity of 2 mg tablet 00:00: mouth [place] 00 daily. Medical Branch amantadine 2018-07 Yes [id number] 200mg Take 2 [facility] HCl 100 mg 0-15 capsules ity o f capsule 00:00: by mouth 2 [place] 00 (two) Medical times Branch daily. ARIPiprazol 2018-07 Yes [id number] 2mg Take 1 [facility] e (ABILIFY) 0-15 tablet by ity of 2 mg tablet 00:00: mouth [place] 00 daily. [facility] Branch amantadine 2018-07 Yes [id number] 200mg Take 2 [facility] HCl 100 mg 0-15 capsules ity o f capsule 00:00: by mouth 2 [place] 00 (two) Medical times Branch daily. ARIPiprazol 2018-07 Yes [id number] 2mg Take 1 [facility] e (ABILIFY) 0-15 tablet by ity of 2 mg tablet 00:00: mouth [place] 00 daily. Medical Branch amantadine 2018-07 Yes [id number] 200mg Take 2 [facility] HCl 100 mg 0-15 capsules ity o f capsule 00:00: by mouth 2 [place] 00 (two) Medical times Branch daily. ARIPiprazol 2018-07 Yes [id number] 2mg Take 1 [facility] e (ABILIFY) 0-15 tablet by ity of 2 mg tablet 00:00: mouth [place] 00 daily. [facility] Branch amantadine 2018-07 Yes [id number] 200mg Take 2 [facility] HCl 100 mg 0-15 capsules ity o f capsule 00:00: by mouth 2 [place] 00 (two) Medical times Branch daily. ARIPiprazol 2018-07 Yes [id number] 2mg Take 1 [facility] e (ABILIFY) 0-15 tablet by ity of 2 mg tablet 00:00: mouth [place] 00 daily. [facility] Branch amantadine 2018-07 Yes [id number] 200mg Take 2 [facility] HCl 100 mg 0-15 capsules ity o f capsule 00:00: by mouth 2 [place] 00 (two) Medical times Branch daily. ARIPiprazol 2018-07 Yes [id number] 2mg Take 1 [facility] e (ABILIFY) 0-15 tablet by ity of 2 mg tablet 00:00: mouth [place] 00 daily. [facility] Branch amantadine 2018-07 Yes [id number] 200mg Take 2 [facility] HCl 100 mg 0-15 capsules ity o f capsule 00:00: by mouth 2 [place] 00 (two) Medical times Branch daily. ARIPiprazol 2018-07 Yes [id number] 2mg Take 1 [facility] e (ABILIFY) 0-15 tablet by ity of 2 mg tablet 00:00: mouth [place] 00 daily. [facility] Branch amantadine 2018-07 Yes [id number] 200mg Take 2 [facility] HCl 100 mg 0-15 capsules ity o f capsule 00:00: by mouth 2 [place] 00 (two) Medical times Branch daily. ARIPiprazol 2018-07 Yes [id number] 2mg Take 1 [facility] e (ABILIFY) 0-15 tablet by ity of 2 mg tablet 00:00: mouth [place] 00 daily. [facility] Branch amantadine 2018-07 Yes [id number] 200mg Take 2 [facility] HCl 100 mg 0-15 capsules ity o f capsule 00:00: by mouth 2 [place] 00 (two) Medical times Branch daily. ARIPiprazol 2018-07 Yes [id number] 2mg Take 1 [facility] e (ABILIFY) 0-15 tablet by ity of 2 mg tablet 00:00: mouth [place] 00 daily. Medical Branch amantadine 2018-07 Yes [id number] 200mg Take 2 [facility] HCl 100 mg 0-15 capsules ity o f capsule 00:00: by mouth 2 [place] 00 (two) Medical times Branch daily. ARIPiprazol 2018-07 Yes [id number] 2mg Take 1 [facility] e (ABILIFY) 0-15 tablet by ity of 2 mg tablet 00:00: mouth [place] 00 daily. Medical Branch amantadine 2018-07 Yes [id number] 200mg Take 2 [facility] HCl 100 mg 0-15 capsules ity o f capsule 00:00: by mouth 2 [place] 00 (two) Medical times Branch daily. ARIPiprazol 2018-07 Yes [id number] 2mg Take 1 [facility] e (ABILIFY) 0-15 tablet by ity of 2 mg tablet 00:00: mouth [place] 00 daily. Medical Branch amantadine 2018-07- No [id number] 200mg Take 2 [facility] HCl 100 mg 0-15 01-31 capsules ity of capsule 00:00: 00:00 by mouth 2 [place] 00 :00 (two) Medical times Branch daily. amantadine 2018-07- No [id number] 200mg Take 2 [facility] HCl 100 mg 0-15 01-31 capsules ity of capsule 00:00: 00:00 by mouth 2 [place] 00 :00 (two) Medical times Branch daily. amantadine 2018-07- No [id number] 200mg Take 2 [facility] HCl 100 mg 0-15 01-31 capsules ity of capsule 00:00: 00:00 by mouth 2 [place] 00 :00 (two) Medical times Branch daily. amantadine 2018-07- No [id number] 200mg Take 2 [facility] HCl 100 mg 0-15 01-31 capsules ity of capsule 00:00: 00:00 by mouth 2 [place] 00 :00 (two) Medical times Branch daily. ARIPiprazol 2018-07- No [id number] 2mg Take 1 [facility] e (ABILIFY) 0-15 12-05 tablet by it y of 2 mg tablet 00:00: 00:00 mouth [place] 00 :00 daily. Medical Branch ARIPiprazol 2018-07- No [id number] 2mg Take 1 [facility] e (ABILIFY) 0-15 12-05 tablet by it y of 2 mg tablet 00:00: 00:00 mouth [place] 00 :00 daily. Medical Branch ARIPiprazol 2018-07- No [id number] 2mg Take 1 [facility] e (ABILIFY) 0-15 12-05 tablet by it y of 2 mg tablet 00:00: 00:00 mouth [place] 00 :00 daily. Medical Branch SERTraline 2018-07- No [id number] 25mg Take 1 [facility] 25 mg 0-15 01-14 tablet by ity of tablet 00:00: 00:00 mouth [place] 00 :00 daily. Medical Branch XOPENEX HFA 2018-07 Yes [id number] INHALE 2 [facility] 45 0-11 PUFFS BY ity of mcg/actuati 00:00: MOUTH [place] on inhaler 00 EVERY 6 Medica l HOURS Branch NEEDED BEFORE EXERCISE OR FOR WHEEZING/S HORTNESS OF BREATH. XOPENEX HFA 2018-07 Yes [id number] INHALE 2 [facility] 45 0-11 PUFFS BY ity of mcg/actuati 00:00: MOUTH [place] on inhaler 00 EVERY 6 Medica l HOURS Branch NEEDED BEFORE EXERCISE OR FOR WHEEZING/S HORTNESS OF BREATH. XOPENEX HFA 2018-07 Yes [id number] INHALE 2 [facility] 45 0-11 PUFFS BY ity of mcg/actuati 00:00: MOUTH [place] on inhaler 00 EVERY 6 Medica l HOURS Branch NEEDED BEFORE EXERCISE OR FOR WHEEZING/S HORTNESS OF BREATH. XOPENEX HFA 2018-07 Yes [id number] INHALE 2 [facility] 45 0-11 PUFFS BY ity of mcg/actuati 00:00: MOUTH [place] on inhaler 00 EVERY 6 Medica l HOURS Branch NEEDED BEFORE EXERCISE OR FOR WHEEZING/S HORTNESS OF BREATH. XOPENEX HFA 2018-07 Yes [id number] INHALE 2 [facility] 45 0-11 PUFFS BY ity of mcg/actuati 00:00: MOUTH [place] on inhaler 00 EVERY 6 Medica l HOURS Branch NEEDED BEFORE EXERCISE OR FOR WHEEZING/S HORTNESS OF BREATH. XOPENEX HFA 2018-07 Yes [id number] INHALE 2 [facility] 45 0-11 PUFFS BY ity of mcg/actuati 00:00: MOUTH [place] on inhaler 00 EVERY 6 Medica l HOURS Branch NEEDED BEFORE EXERCISE OR FOR WHEEZING/S HORTNESS OF BREATH. XOPENEX HFA 2018- Yes [id number] INHALE 2 [facility] 45 0-11 PUFFS BY ity of mcg/actuati 00:00: MOUTH [place] on inhaler 00 EVERY 6 Medica l HOURS Branch NEEDED BEFORE EXERCISE OR FOR WHEEZING/S HORTNESS OF BREATH. XOPENEX HFA 2018- Yes [id number] INHALE 2 [facility] 45 0-11 PUFFS BY ity of mcg/actuati 00:00: MOUTH [place] on inhaler 00 EVERY 6 Medica l HOURS Branch NEEDED BEFORE EXERCISE OR FOR WHEEZING/S HORTNESS OF BREATH. XOPENEX HFA 2018- Yes [id number] INHALE 2 [facility] 45 0-11 PUFFS BY ity of mcg/actuati 00:00: MOUTH [place] on inhaler 00 EVERY 6 Medica l HOURS Branch NEEDED BEFORE EXERCISE OR FOR WHEEZING/S HORTNESS OF BREATH. XOPENEX HFA 2018- Yes [id number] INHALE 2 [facility] 45 0-11 PUFFS BY ity of mcg/actuati 00:00: MOUTH [place] on inhaler 00 EVERY 6 Medica l HOURS Branch NEEDED BEFORE EXERCISE OR FOR WHEEZING/S HORTNESS OF BREATH. XOPENEX HFA 2018- Yes [id number] INHALE 2 [facility] 45 0-11 PUFFS BY ity of mcg/actuati 00:00: MOUTH [place] on inhaler 00 EVERY 6 Medica l HOURS Branch NEEDED BEFORE EXERCISE OR FOR WHEEZING/S HORTNESS OF BREATH. XOPENEX HFA 2018- Yes [id number] INHALE 2 [facility] 45 0-11 PUFFS BY ity of mcg/actuati 00:00: MOUTH [place] on inhaler 00 EVERY 6 Medica l HOURS Branch NEEDED BEFORE EXERCISE OR FOR WHEEZING/S HORTNESS OF BREATH. XOPENEX HFA 2018-07 Yes [id number] INHALE 2 [facility] 45 0-11 PUFFS BY ity of mcg/actuati 00:00: MOUTH [place] on inhaler 00 EVERY 6 Medica l HOURS Branch NEEDED BEFORE EXERCISE OR FOR WHEEZING/S HORTNESS OF BREATH. XOPENEX A 2018-07 Yes [id number] INHALE 2 [facility] 45 0-11 PUFFS BY ity of mcg/actuati 00:00: MOUTH [place] on inhaler 00 EVERY 6 Medica l HOURS Branch NEEDED BEFORE EXERCISE OR FOR WHEEZING/S HORTNESS OF BREATH. XOPENEX A 2018-07 Yes [id number] INHALE 2 [facility] 45 0-11 PUFFS BY ity of mcg/actuati 00:00: MOUTH [place] on inhaler 00 EVERY 6 Medica l HOURS Branch NEEDED BEFORE EXERCISE OR FOR WHEEZING/S HORTNESS OF BREATH. [facility] Yes [id number] INHALE 2 [facility] 45 0-11 PUFFS BY ity of mcg/actuati 00:00: MOUTH [place] on inhaler 00 EVERY 6 Medica l HOURS Branch NEEDED BEFORE EXERCISE OR FOR WHEEZING/S HORTNESS OF BREATH. XOPENEX A 2018-07 Yes [id number] INHALE 2 [facility] 45 0-11 PUFFS BY ity of mcg/actuati 00:00: MOUTH [place] on inhaler 00 EVERY 6 Medica l HOURS Branch NEEDED BEFORE EXERCISE OR FOR WHEEZING/S HORTNESS OF BREATH. XOPENEX A 2018-07 Yes [id number] INHALE 2 [facility] 45 0-11 PUFFS BY ity of mcg/actuati 00:00: MOUTH [place] on inhaler 00 EVERY 6 Medica l HOURS Branch NEEDED BEFORE EXERCISE OR FOR WHEEZING/S HORTNESS OF BREATH. XOPENEX A 2018-07 Yes [id number] INHALE 2 [facility] 45 0-11 PUFFS BY ity of mcg/actuati 00:00: MOUTH [place] on inhaler 00 EVERY 6 Medica l HOURS Branch NEEDED BEFORE EXERCISE OR FOR WHEEZING/S HORTNESS OF BREATH. XOPENEX A 2018-07 Yes [id number] INHALE 2 [facility] 45 0-11 PUFFS BY ity of mcg/actuati 00:00: MOUTH [place] on inhaler 00 EVERY 6 Medica l HOURS Branch NEEDED BEFORE EXERCISE OR FOR WHEEZING/S HORTNESS OF BREATH. XOPENEX A 2018-07 Yes [id number] INHALE 2 [facility] 45 0-11 PUFFS BY ity of mcg/actuati 00:00: MOUTH [place] on inhaler 00 EVERY 6 Medica l HOURS Branch NEEDED BEFORE EXERCISE OR FOR WHEEZING/S HORTNESS OF BREATH. [facility] Yes [id number] INHALE 2 [facility] 45 0-11 PUFFS BY ity of mcg/actuati 00:00: MOUTH [place] on inhaler 00 EVERY 6 Medica l HOURS Branch NEEDED BEFORE EXERCISE OR FOR WHEEZING/S HORTNESS OF BREATH. [facility] 2018-07 Yes [id number] INHALE 2 [facility] 45 0-11 PUFFS BY ity of mcg/actuati 00:00: MOUTH [place] on inhaler 00 EVERY 6 Medica l HOURS Branch NEEDED BEFORE EXERCISE OR FOR WHEEZING/S HORTNESS OF BREATH. [facility] 2018-07 Yes [id number] INHALE 2 [facility] 45 0-11 PUFFS BY ity of mcg/actuati 00:00: MOUTH [place] on inhaler 00 EVERY 6 Medica l HOURS Branch NEEDED BEFORE EXERCISE OR FOR WHEEZING/S HORTNESS OF BREATH. [employer] 2018-07- No [id number] INHALE 2 [facility] 45 0-11 12-29 PUFFS BY ity of mcg/actuati 00:00: 00:00 MOUTH [place] on inhaler 00 :00 EVERY 6 Medica l HOURS Branch NEEDED BEFORE EXERCISE OR FOR WHEEZING/S HORTNESS OF BREATH. [employer] 2018-07- No [id number] INHALE 2 [facility] 45 0-11 12-29 PUFFS BY ity of mcg/actuati 00:00: 00:00 MOUTH [place] on inhaler 00 :00 EVERY 6 Medica l HOURS Branch NEEDED BEFORE EXERCISE OR FOR WHEEZING/S HORTNESS OF BREATH. fluticasone 2018-07 Yes [id number] 2{puff} Inhale 2 [facility] propionate 0-07 Puffs 2 ity of (FLOVENT 00:00: (two) [place] HFA) 110 00 times Medical mcg/actuati daily. Branch on inhaler fluticasone 2018- Yes [id number] 2{puff} Inhale 2 [facility] propionate 0-07 Puffs 2 ity of (FLOVENT 00:00: (two) [place] HFA) 110 00 times Medical mcg/actuati daily. Branch on inhaler fluticasone 2018-07 Yes [id number] 2{puff} Inhale 2 [facility] propionate 0-07 Puffs 2 ity of (FLOVENT 00:00: ([facility]) [facility]) 110 00 times Medical mcg/actuati daily. Branch on inhaler fluticasone 2018-07 Yes [id number] 2{puff} Inhale 2 [facility] propionate 0-07 Puffs 2 ity of (FLOVENT 00:00: ([facility]) [facility]) 110 00 times Medical mcg/actuati daily. Branch on inhaler fluticasone 2018-07 Yes [id number] 2{puff} Inhale 2 [facility] propionate 0-07 Puffs 2 ity of (FLOVENT 00:00: ([facility]) 110 00 times Medical mcg/actuati daily. Branch on inhaler fluticasone 2018-07 Yes [id number] 2{puff} Inhale 2 [facility] propionate 0-07 Puffs 2 ity of (FLOVENT 00:00: ([facility]) 110 00 times Medical mcg/actuati daily. Branch on inhaler fluticasone 2018-07 Yes [id number] 2{puff} Inhale 2 [facility] propionate 0-07 Puffs 2 ity of (FLOVENT 00:00: ([facility]) 110 00 times Medical mcg/actuati daily. Branch on inhaler fluticasone 2018-07 Yes [id number] 2{puff} Inhale 2 [facility] propionate 0-07 Puffs 2 ity of (FLOVENT 00:00: ([facility]) [facility]) 110 00 times Medical mcg/actuati daily. Branch on inhaler fluticasone 2018-07 Yes [id number] 2{puff} Inhale 2 [facility] propionate 0-07 Puffs 2 ity of (FLOVENT 00:00: ([facility]) 110 00 times Medical mcg/actuati daily. Branch on inhaler fluticasone 2018-07 Yes [id number] 2{puff} Inhale 2 [facility] propionate 0-07 Puffs 2 ity of (FLOVENT 00:00: ([facility]) [facility]) 110 00 times Medical mcg/actuati daily. Branch on inhaler fluticasone 2018-07 Yes [id number] 2{puff} Inhale 2 [facility] propionate 0-07 Puffs 2 ity of (FLOVENT 00:00: ([facility]) [place] [facility]) 110 00 times Medical mcg/actuati daily. Branch on inhaler fluticasone 2018-07 Yes [id number] 2{puff} Inhale 2 [facility] propionate 0-07 Puffs 2 ity of (FLOVENT 00:00: (two) [place] HFA) 110 00 times Medical mcg/actuati daily. Branch on inhaler fluticasone 2018-07 Yes [id number] 2{puff} Inhale 2 [facility] propionate 0-07 Puffs 2 ity of (FLOVENT 00:00: (two) [place] HFA) 110 00 times Medical mcg/actuati daily. Branch on inhaler fluticasone 2018-07 Yes [id number] 2{puff} Inhale 2 [facility] propionate 0-07 Puffs 2 ity of (FLOVENT 00:00: ([facility]) [place] HFA) 110 00 times Medical mcg/actuati daily. Branch on inhaler fluticasone 2018-07 Yes [id number] 2{puff} Inhale 2 [facility] propionate 0-07 Puffs 2 ity of (FLOVENT 00:00: ([facility]) [place] [facility]FA) 110 00 times Medical mcg/actuati daily. Branch on inhaler fluticasone 2018-07 Yes [id number] 2{puff} Inhale 2 [facility] propionate 0-07 Puffs 2 ity of (FLOVENT 00:00: ([facility]) [place] [facility]FA) 110 00 times Medical mcg/actuati daily. Branch on inhaler fluticasone 2018-07 Yes [id number] 2{puff} Inhale 2 [facility] propionate 0-07 Puffs 2 ity of (FLOVENT 00:00: ([facility]) [place] [facility]FA) 110 00 times Medical mcg/actuati daily. Branch on inhaler fluticasone 2018-07- No [id number] 2{puff} Inhale 2 [facility] propionate 0-07 12-05 Puffs 2 ity o f (FLOVENT 00:00: 00:00 ([facility]) [place] [facility]FA) 110 00 :00 times Medical mcg/actuati daily. Branch on inhaler fluticasone 2018-07- No [id number] 2{puff} Inhale 2 [facility] propionate 0-07 12-05 Puffs 2 ity o f (FLOVENT 00:00: 00:00 (two) [place] HFA) 110 00 :00 times Medical mcg/actuati daily. Branch on inhaler fluticasone 2018-07- No [id number] 2{puff} Inhale 2 [facility] propionate 0-07 12-05 Puffs 2 ity o f (FLOVENT 00:00: 00:00 (two) [place] HFA) 110 00 :00 times Medical mcg/actuati daily. Branch on inhaler lisdexamfet 2018-0 Yes [id number] 40mg Take 1 [facility]09 [facility] capsule 00:00: mouth [place] 00 every Medical morning. [facility] lisdexamfet 2018- Yes [id number] 40mg Take 1 [facility] 9-09 capsule [facility] capsule 00:00: mouth [place] 00 every Medical morning. [facility] lisdexamfet 2018- Yes [id number] 40mg Take 1 [facility] 9-09 capsule [facility] capsule 00:00: mouth [place] 00 every Medical morning. [facility] lisdexamfet 2018- Yes [id number] 40mg Take 1 [facility] 40 [facility] 9-09 capsule by [facility] capsule 00:00: mouth [place] 00 every Medical morning. [facility] lisdexamfet 2018-0 Yes [id number] 40mg Take 1 [facility] 40 [facility] 9-09 capsule [facility] capsule 00:00: mouth [place] 00 every Medical morning. [facility] lisdexamfet 2018-0 Yes [id number] 40mg Take 1 [facility] 40 [facility] 9-09 capsule [facility] capsule 00:00: mouth [place] 00 every Medical morning. [facility] lisdexamfet 2018-0 Yes [id number] 40mg Take 1 [facility] 40 [facility] 9-09 capsule [facility] capsule 00:00: mouth [place] 00 every Medical morning. [facility] lisdexamfet 2018-0 Yes [id number] 40mg Take 1 [facility] 40 [facility] 9-09 capsule [facility] capsule 00:00: mouth [place] 00 every Medical morning. [facility] lisdexamfet 2018-0 Yes [id number] 40mg Take 1 [facility] 40 [facility] 9-09 capsule [facility] capsule 00:00: mouth [place] 00 every Medical morning. [facility] lisdexamfet 2018-0 Yes [id number] 40mg Take 1 [facility] 40 mg 9-09 capsule by [facility] capsule 00:00: mouth [place] 00 every Medical morning. [facility] lisdexamfet 2019-0 Yes [id number] 40mg Take 1 [facility] 40 mg 9-09 capsule by [facility] capsule 00:00: mouth [place] 00 every Medical morning. [facility] lisdexamfet 2019-0 Yes [id number] 40mg Take 1 [facility] 40 mg 9-09 capsule [facility] capsule 00:00: mouth [place] 00 every Medical morning. [facility] lisdexamfet 2019-0 Yes [id number] 40mg Take 1 [facility] 40 mg 9-09 capsule [facility] capsule 00:00: mouth [place] 00 every Medical morning. [facility] lisdexamfet 2019-0 Yes [id number] 40mg Take 1 [facility] 40 mg 9-09 capsule [facility] capsule 00:00: mouth [place] 00 every Medical morning. [facility] lisdexamfet 2019-0 Yes [id number] 40mg Take 1 [facility] 40 mg 9-09 capsule [facility] capsule 00:00: mouth [place] 00 every Medical morning. [facility] lisdexamfet 2019-0 Yes [id number] 40mg Take 1 [facility] 40 mg 9-09 capsule [facility] capsule 00:00: mouth [place] 00 every Medical morning. [facility] lisdexamfet 2019-0 Yes [id number] 40mg Take 1 [facility] 40 mg 9-09 capsule [facility] capsule 00:00: mouth [place] 00 every Medical morning. [facility] lisdexamfet 2019-0 Yes [id number] 40mg Take 1 [facility] 40 mg 9-09 capsule [facility] capsule 00:00: mouth [place] 00 every Medical morning. [facility] lisdexamfet 2019-0 Yes [id number] 40mg Take 1 [facility] 40 mg 9-09 capsule [facility] capsule 00:00: mouth [place] 00 every Medical morning. [facility] lisdexamfet 2019-0 Yes [id number] 40mg Take 1 [facility] 40 mg 9-09 capsule [facility] capsule 00:00: mouth [place] 00 every Medical morning. [facility] lisdexamfet 2019-0 Yes [id number] 40mg Take 1 [facility] 40 mg 9-09 capsule [facility] capsule 00:00: mouth [place] 00 every Medical morning. [facility] lisdexamfet 2019-0 Yes [id number] 40mg Take 1 [facility] 40 mg 9-09 capsule [facility] capsule 00:00: mouth [place] 00 every Medical morning. [facility] lisdexamfet 2019-0 Yes [id number] 40mg Take 1 [facility] 40 mg 9-09 capsule [facility] capsule 00:00: mouth [place] 00 every Medical morning. [facility] lisdexamfet 2019-0 Yes [id number] 40mg Take 1 [facility] 40 mg 9-09 capsule by [facility] capsule 00:00: mouth [place] 00 every Medical morning. [facility] lisdexamfet 2019-0 Yes [id number] 40mg Take 1 [facility] 40 mg 9-09 capsule by [facility] capsule 00:00: mouth [place] 00 every Medical morning. [facility] lisdexamfet 2019-0 Yes [id number] 40mg Take 1 [facility] 40 mg 9-09 capsule [facility] capsule 00:00: mouth [place] 00 every Medical morning. [facility] lisdexamfet 2019-0 Yes [id number] 40mg Take 1 [facility] 40 mg 9-09 capsule [facility] capsule 00:00: mouth [place] 00 every Medical morning. [facility] lisdexamfet 2019-0 Yes [id number] 40mg Take 1 [facility] 40 mg 9-09 capsule by [facility] capsule 00:00: mouth [place] 00 every Medical morning. [facility] lisdexamfet 2019-0 Yes [id number] 40mg Take 1 [facility] 40 mg 9-09 capsule [facility] capsule 00:00: mouth [place] 00 every Medical morning. [facility] lisdexamfet 2019-0 Yes [id number] 40mg Take 1 [facility] 40 mg 9-09 capsule by [facility] capsule 00:00: mouth [place] 00 every Medical morning. [facility] lisdexamfet 2019-0 Yes [id number] 40mg Take 1 [facility] 40 mg 9-09 capsule by [facility] capsule 00:00: mouth [place] 00 every Medical morning. [facility] lisdexamfet 2019-0 Yes [id number] 40mg Take 1 [facility] 40 mg 9-09 capsule by [facility] capsule 00:00: mouth [place] 00 every Medical morning. [facility] lisdexamfet 2019-0 Yes [id number] 40mg Take 1 [facility] 40 mg 9-09 capsule by [facility] capsule 00:00: mouth [place] 00 every Medical morning. [facility] lisdexamfet 2019-0 Yes [id number] 40mg Take 1 [facility] 40 mg 9-09 capsule by [facility] capsule 00:00: mouth [place] 00 every Medical morning. [facility] lisdexamfet 2019-0 Yes [id number] 40mg Take 1 [facility] 40 mg 9-09 capsule by [facility] capsule 00:00: mouth [place] 00 every Medical morning. [facility] lisdexamfet 2019-0 Yes [id number] 40mg Take 1 [facility] 40 mg 9-09 capsule by [facility] capsule 00:00: mouth [place] 00 every Medical morning. [facility] lisdexamfet 2019-0 Yes [id number] 40mg Take 1 [facility] 40 mg 9-09 capsule by [facility] capsule 00:00: mouth [place] 00 every Medical morning. [facility] lisdexamfet 2019-0 Yes [id number] 40mg Take 1 [facility] 40 mg 9-09 capsule by [facility] capsule 00:00: mouth [place] 00 every Medical morning. [facility] lisdexamfet 2019-0 Yes [id number] 40mg Take 1 [facility] 40 mg 9-09 capsule by [facility] capsule 00:00: mouth [place] 00 every Medical morning. [facility] lisdexamfet 2019-0 Yes [id number] 40mg Take 1 [facility] 40 mg 9-09 capsule by [facility] capsule 00:00: mouth [place] 00 every Medical morning. [facility] lisdexamfet 2019-0 Yes [id number] 40mg Take 1 [facility] 40 mg 9-09 capsule by [facility] capsule 00:00: mouth [place] 00 every Medical morning. [facility] lisdexamfet 2019-0 Yes [id number] 40mg Take 1 [facility] 40 mg 9-09 capsule by [facility] capsule 00:00: mouth [place] 00 every Medical morning. [facility] lisdexamfet 2019-0 Yes [id number] 40mg Take 1 [facility] 40 mg 9-09 capsule by [facility] capsule 00:00: mouth [place] 00 every Medical morning. [facility] lisdexamfet 2019-0 Yes [id number] 40mg Take 1 [facility] 40 mg 9-09 capsule by [facility] capsule 00:00: mouth [place] 00 every Medical morning. [facility] lisdexamfet 2019-0 Yes [id number] 40mg Take 1 [facility] 40 mg 9-09 capsule by [facility] capsule 00:00: mouth [place] 00 every Medical morning. [facility] lisdexamfet 2019-0 Yes [id number] 40mg Take 1 [facility] 40 mg 9-09 capsule by [facility] capsule 00:00: mouth [place] 00 every Medical morning. [facility] lisdexamfet 2019-0 Yes [id number] 40mg Take 1 [facility] 40 mg 9-09 capsule by [facility] capsule 00:00: mouth [place] 00 every Medical morning. [facility] lisdexamfet 2019-0 Yes [id number] 40mg Take 1 [facility] 40 mg 9-09 capsule by [facility] capsule 00:00: mouth [place] 00 every Medical morning. [facility] lisdexamfet 2019-0 Yes [id number] 40mg Take 1 [facility] 40 mg 9-09 capsule by [facility] capsule 00:00: mouth [place] 00 every Medical morning. [facility] lisdexamfet 2019-0 Yes [id number] 40mg Take 1 [facility] 40 mg 9-09 capsule by [facility] capsule 00:00: mouth [place] 00 every Medical morning. [facility] lisdexamfet 2019-0 Yes [id number] 40mg Take 1 [facility] 40 mg 9-09 capsule by [facility] capsule 00:00: mouth [place] 00 every Medical morning. [facility] lisdexamfet 2019-0 Yes [id number] 40mg Take 1 [facility] 40 mg 9-09 capsule by [facility] capsule 00:00: mouth [place] 00 every Medical morning. [facility] lisdexamfet 2019-0 Yes [id number] 40mg Take 1 [facility] 40 mg 9-09 capsule by [facility] capsule 00:00: mouth [place] 00 every Medical morning. [facility] lisdexamfet 2019-0 Yes [id number] 40mg Take 1 [facility] 40 mg 9-09 capsule by [facility] capsule 00:00: mouth [place] 00 every Medical morning. [facility] lisdexamfet 2019-0 Yes [id number] 40mg Take 1 [facility] 40 mg 9-09 capsule by [facility] capsule 00:00: mouth [place] 00 every Medical morning. [facility] lisdexamfet 2019-0 Yes [id number] 40mg Take 1 [facility] 40 mg 9-09 capsule by [facility] capsule 00:00: mouth [place] 00 every Medical morning. [facility] lisdexamfet 2019-0 Yes [id number] 40mg Take 1 [facility] 40 mg 9-09 capsule by [facility] capsule 00:00: mouth [place] 00 every Medical morning. [facility] lisdexamfet 2019-0 Yes [id number] 40mg Take 1 [facility] 40 mg 9-09 capsule by [facility] capsule 00:00: mouth [place] 00 every Medical morning. [facility] lisdexamfet 2019-0 Yes [id number] 40mg Take 1 [facility] 40 mg 9-09 capsule by [facility] capsule 00:00: mouth [place] 00 every Medical morning. [facility] lisdexamfet 2019-0 Yes [id number] 40mg Take 1 [facility] 40 mg 9-09 capsule by [facility] capsule 00:00: mouth [place] 00 every Medical morning. [facility] lisdexamfet 2019-0 Yes [id number] 40mg Take 1 [facility] 40 mg 9-09 capsule by [facility] capsule 00:00: mouth [place] 00 every Medical morning. [facility] lisdexamfet 2019-0 Yes [id number] 40mg Take 1 [facility] 40 mg 9-09 capsule by [facility] capsule 00:00: mouth [place] 00 every Medical morning. [facility] lisdexamfet 2019-0 Yes [id number] 40mg Take 1 [facility] 40 mg 9-09 capsule by [facility] capsule 00:00: mouth [place] 00 every Medical morning. [facility] lisdexamfet 2019-0 Yes [id number] 40mg Take 1 [facility] 40 mg 9-09 capsule by [facility] capsule 00:00: mouth [place] 00 every Medical morning. [facility] lisdexamfet 2019-0 Yes [id number] 40mg Take 1 [facility] 40 mg 9-09 capsule by [facility] capsule 00:00: mouth [place] 00 every Medical morning. [facility] lisdexamfet 2019-0 Yes [id number] 40mg Take 1 [facility] 40 mg 9-09 capsule by [facility] capsule 00:00: mouth [place] 00 every Medical morning. [facility] lisdexamfet 2019-0 Yes [id number] 40mg Take 1 [facility] 40 mg 9-09 capsule by [facility] capsule 00:00: mouth [place] 00 every Medical morning. [facility] lisdexamfet 2019-0 Yes [id number] 40mg Take 1 [facility] 40 mg 9-09 capsule by [facility] capsule 00:00: mouth [place] 00 every Medical morning. [facility] lisdexamfet 2019-0 Yes [id number] 40mg Take 1 [facility] 40 mg 9-09 capsule by [facility] capsule 00:00: mouth [place] 00 every Medical morning. [facility] lisdexamfet 2019-0 Yes [id number] 40mg Take 1 [facility] 40 mg 9-09 capsule by [facility] capsule 00:00: mouth [place] 00 every Medical morning. [facility] lisdexamfet 2019-0 Yes [id number] 40mg Take 1 [facility] 40 mg 9-09 capsule by [facility] capsule 00:00: mouth [place] 00 every Medical morning. [facility] lisdexamfet 2019-0 Yes [id number] 40mg Take 1 [facility] 40 mg 9-09 capsule by [facility] capsule 00:00: mouth [place] 00 every Medical morning. [facility] lisdexamfet 2019-0 Yes [id number] 40mg Take 1 [facility] 40 mg 9-09 capsule by [facility] capsule 00:00: mouth [place] 00 every Medical morning. [facility] lisdexamfet 2019-0 Yes [id number] 40mg Take 1 [facility] 40 mg 9-09 capsule by [facility] capsule 00:00: mouth [place] 00 every Medical morning. [facility] lisdexamfet 2019-0 Yes [id number] 40mg Take 1 [facility] 40 mg 9-09 capsule by [facility] capsule 00:00: mouth [place] 00 every Medical morning. [facility] lisdexamfet 2019-0 Yes [id number] 40mg Take 1 [facility] 40 mg 9-09 capsule by [facility] of capsule 00:00: mouth [place] 00 every Medical morning. [facility] lisdexamfet 2019-0 Yes [id number] 40mg Take 1 [facility] 40 mg 9-09 capsule by [facility] capsule 00:00: mouth [place] 00 every Medical morning. [facility] lisdexamfet 2019-0 Yes [id number] 40mg Take 1 [facility] 40 mg 9-09 capsule by [facility] of capsule 00:00: mouth [place] 00 every Medical morning. [facility] lisdexamfet 2019-0 Yes [id number] 40mg Take 1 [facility] 40 mg 9-09 capsule by [facility] of capsule 00:00: mouth [place] 00 every Medical morning. [facility] lisdexamfet 2019-0 Yes [id number] 40mg Take 1 [facility] 40 mg 9-09 capsule by [facility] of capsule 00:00: mouth [place] 00 every Medical morning. [facility] lisdexamfet 2019-0 Yes [id number] 40mg Take 1 [facility] 40 mg 9-09 capsule by [facility] of capsule 00:00: mouth [place] 00 every Medical morning. [facility] lisdexamfet 2019-0 Yes [id number] 40mg Take 1 [facility] 40 mg 9-09 capsule by [facility] of capsule 00:00: mouth [place] 00 every Medical morning. [facility] lisdexamfet 2019-0 Yes [id number] 40mg Take 1 [facility] 40 mg 9-09 capsule by [facility] of capsule 00:00: mouth [place] 00 every Medical morning. [facility] lisdexamfet 2019-0 Yes [id number] 40mg Take 1 [facility] 40 mg 9-09 capsule by [facility] of capsule 00:00: mouth [place] 00 every Medical morning. [facility] lisdexamfet 2019-0 Yes [id number] 40mg Take 1 [facility] 40 mg 9-09 capsule by [facility] of capsule 00:00: mouth [place] 00 every Medical morning. [facility] lisdexamfet 2019-0 Yes [id number] 40mg Take 1 [facility] 40 mg 9-09 capsule by [facility] of capsule 00:00: mouth [place] 00 every Medical morning. [facility] lisdexamfet 2019-0 Yes [id number] 40mg Take 1 [facility] 40 mg 9-09 capsule by [facility] of capsule 00:00: mouth [place] 00 every Medical morning. [facility] lisdexamfet 2019-0 Yes [id number] 40mg Take 1 [facility] 40 mg 9-09 capsule by [facility] of capsule 00:00: mouth [place] 00 every Medical morning. [facility] lisdexamfet 2019-0 Yes [id number] 40mg Take 1 [facility] 40 mg 9-09 capsule by [facility] of capsule 00:00: mouth [place] 00 every Medical morning. [facility] lisdexamfet 2019-0 Yes [id number] 40mg Take 1 [facility] 40 mg 9-09 capsule by [facility] of capsule 00:00: mouth [place] 00 every Medical morning. [facility] lisdexamfet 2019-0 Yes [id number] 40mg Take 1 [facility] 40 mg 9-09 capsule by [facility] of capsule 00:00: mouth [place] 00 every Medical morning. [facility] lisdexamfet 2019-0 Yes [id number] 40mg Take 1 [facility] 40 mg 9-09 capsule by [facility] of capsule 00:00: mouth [place] 00 every Medical morning. [facility] lisdexamfet 2019-0 Yes [id number] 40mg Take 1 [facility] 40 mg 9-09 capsule by [facility] of capsule 00:00: mouth [place] 00 every Medical morning. [facility] lisdexamfet 2019-0 Yes [id number] 40mg Take 1 [facility] 40 mg 9-09 capsule by [facility] of capsule 00:00: mouth [place] 00 every Medical morning. [facility] lisdexamfet 2019-0 Yes [id number] 40mg Take 1 [facility] 40 mg 9-09 capsule by [facility] of capsule 00:00: mouth [place] 00 every Medical morning. [facility] lisdexamfet 2019-0 Yes [id number] 40mg Take 1 [facility] 40 mg 9-09 capsule by [facility] of capsule 00:00: mouth [place] 00 every Medical morning. [facility] lisdexamfet 2019-0 Yes [id number] 40mg Take 1 [facility] 40 mg 9-09 capsule by [facility] of capsule 00:00: mouth [place] 00 every Medical morning. [facility] lisdexamfet 2019-0 Yes [id number] 40mg Take 1 [facility] 40 mg 9-09 capsule by [facility] of capsule 00:00: mouth [place] 00 every Medical morning. [facility] lisdexamfet 2019-0 Yes [id number] 40mg Take 1 [facility] 40 mg 9-09 capsule by [facility] of capsule 00:00: mouth [place] 00 every Medical morning. [facility] lisdexamfet 2019-0 Yes [id number] 40mg Take 1 [facility] 40 mg 9-09 capsule by [facility] of capsule 00:00: mouth [place] 00 every Medical morning. [facility] lisdexamfet 2019-0 Yes [id number] 40mg Take 1 [facility] 40 mg 9-09 capsule by [facility] of capsule 00:00: mouth [place] 00 every Medical morning. [facility] lisdexamfet 2019-0 Yes [id number] 40mg Take 1 [facility] 40 mg 9-09 capsule by [facility] of capsule 00:00: mouth [place] 00 every Medical morning. [facility] lisdexamfet 2019-0 Yes [id number] 40mg Take 1 [facility] 40 mg 9-09 capsule by [facility] of capsule 00:00: mouth [place] 00 every Medical morning. [facility] lisdexamfet 2019-0 Yes [id number] 40mg Take 1 [facility] 40 mg 9-09 capsule by [facility] of capsule 00:00: mouth [place] 00 every Medical morning. [facility] lisdexamfet 2019-0 Yes [id number] 40mg Take 1 [facility] 40 mg 9-09 capsule by [facility] of capsule 00:00: mouth [place] 00 every Medical morning. [facility] lisdexamfet 2019-0 Yes [id number] 40mg Take 1 [facility] 40 mg 9-09 capsule by [facility] of capsule 00:00: mouth [place] 00 every Medical morning. [facility] lisdexamfet 2019-0 Yes [id number] 40mg Take 1 [facility] 40 mg 9-09 capsule by [facility] of capsule 00:00: mouth [place] 00 every Medical morning. [facility] lisdexamfet 2019-0 Yes [id number] 40mg Take 1 [facility] 40 mg 9-09 capsule by [facility] of capsule 00:00: mouth [place] 00 every Medical morning. [facility] lisdexamfet 2019-0 Yes [id number] 40mg Take 1 [facility] 40 mg 9-09 capsule by [facility] y of capsule 00:00: mouth [place] 00 every Medical morning. [facility] lisdexamfet 2019-0 Yes [id number] 40mg Take 1 [facility] 40 mg 9-09 capsule by [facility] of capsule 00:00: mouth [place] 00 every Medical morning. [facility] lisdexamfet 2019-0 Yes [id number] 40mg Take 1 [facility] 40 mg 9-09 capsule by [facility] of capsule 00:00: mouth [place] 00 every Medical morning. [facility] lisdexamfet 2019-0 Yes [id number] 40mg Take 1 [facility] 40 mg 9-09 capsule by [facility] of capsule 00:00: mouth [place] 00 every Medical morning. [facility] lisdexamfet 2019-0 Yes [id number] 40mg Take 1 [facility] 40 mg 9-09 capsule by [facility] of capsule 00:00: mouth [place] 00 every Medical morning. [facility] lisdexamfet 2019-0 Yes [id number] 40mg Take 1 [facility] 40 mg 9-09 capsule by [facility] of capsule 00:00: mouth [place] 00 every Medical morning. [facility] lisdexamfet 2019-0 Yes [id number] 40mg Take 1 [facility] 40 mg 9-09 capsule by [facility] of capsule 00:00: mouth [place] 00 every Medical morning. [facility] lisdexamfet 2019-0 Yes [id number] 40mg Take 1 [facility] 40 mg 9-09 capsule by [facility] of capsule 00:00: mouth [place] 00 every Medical morning. [facility] lisdexamfet 2019-0 Yes [id number] 40mg Take 1 [facility] 40 mg 9-09 capsule by [facility] y of capsule 00:00: mouth [place] 00 every Medical morning. [facility] lisdexamfet 2019-0 Yes [id number] 40mg Take 1 [facility] 40 mg 9-09 capsule by [facility] of capsule 00:00: mouth [place] 00 every Medical morning. [facility] lisdexamfet 2019-0 Yes [id number] 40mg Take 1 [facility] 40 mg 9-09 capsule by [facility] of capsule 00:00: mouth [place] 00 every Medical morning. [facility] lisdexamfet 2019-0 Yes [id number] 40mg Take 1 [facility] 40 mg 9-09 capsule by [facility] of capsule 00:00: mouth [place] 00 every Medical morning. [facility] lisdexamfet 2019-0 Yes [id number] 40mg Take 1 [facility] 40 mg 9-09 capsule by [facility] of capsule 00:00: mouth [place] 00 every Medical morning. [facility] lisdexamfet 2019-0 Yes [id number] 40mg Take 1 [facility] 40 mg 9-09 capsule by [facility] of capsule 00:00: mouth [place] 00 every Medical morning. [facility] lisdexamfet 2019-0 Yes [id number] 40mg Take 1 [facility] 40 mg 9-09 capsule by [facility] of capsule 00:00: mouth [place] 00 every Medical morning. [facility] lisdexamfet 2019-0 Yes [id number] 40mg Take 1 [facility] 40 mg 9-09 capsule by [facility] of capsule 00:00: mouth [place] 00 every Medical morning. [facility] lisdexamfet 2019-0 Yes [id number] 40mg Take 1 [facility] 40 mg 9-09 capsule by [facility] of capsule 00:00: mouth [place] 00 every Medical morning. [facility] lisdexamfet 2018-0 Yes [id number] 40mg Take 1 [facility] 40 mg 9-09 capsule by [facility] of capsule 00:00: mouth [place] 00 every Medical morning. [facility] lisdexamfet 2019-0 Yes [id number] 40mg Take 1 [facility] 40 mg 9-09 capsule by [facility] of capsule 00:00: mouth [place] 00 every Medical morning. [facility] lisdexamfet 2019-0 Yes [id number] 40mg Take 1 [facility] 40 mg 9-09 capsule by [facility] of capsule 00:00: mouth [place] 00 every Medical morning. [facility] lisdexamfet 2019-0 Yes [id number] 40mg Take 1 [facility] 40 mg 9-09 capsule by [facility] of capsule 00:00: mouth [place] 00 every Medical morning. [facility] lisdexamfet 2019-0 Yes [id number] 40mg Take 1 [facility] 40 mg 9-09 capsule by [facility] of capsule 00:00: mouth [place] 00 every Medical morning. [facility] lisdexamfet 2019-0 Yes [id number] 40mg Take 1 [facility] 40 mg 9-09 capsule by [facility] of capsule 00:00: mouth [place] 00 every Medical morning. [facility] lisdexamfet 2019-0 Yes [id number] 40mg Take 1 [facility] 40 mg 9-09 capsule by [facility] of capsule 00:00: mouth [place] 00 every Medical morning. [facility] lisdexamfet 2019-0 Yes [id number] 40mg Take 1 [facility] 40 mg 9-09 capsule by [facility] of capsule 00:00: mouth [place] 00 every Medical morning. [facility] lisdexamfet 2019-0 Yes [id number] 40mg Take 1 [facility] 40 mg 9-09 capsule by [facility] of capsule 00:00: mouth [place] 00 every Medical morning. [facility] lisdexamfet 2019-0 Yes [id number] 40mg Take 1 [facility] 40 mg 9-09 capsule by [facility] of capsule 00:00: mouth [place] 00 every Medical morning. [facility] lisdexamfet 2019-0 Yes [id number] 40mg Take 1 [facility] 40 mg 9-09 capsule by [facility] of capsule 00:00: mouth [place] 00 every Medical morning. [facility] lisdexamfet 2019-0 Yes [id number] 40mg Take 1 [facility] 40 mg 9-09 capsule by [facility] of capsule 00:00: mouth [place] 00 every Medical morning. [facility] lisdexamfet 2019-0 Yes [id number] 40mg Take 1 [facility] 40 mg 9-09 capsule by [facility] of capsule 00:00: mouth [place] 00 every Medical morning. [facility] lisdexamfet 2019-0 Yes [id number] 40mg Take 1 [facility] 40 mg 9-09 capsule by [facility] of capsule 00:00: mouth [place] 00 every Medical morning. [facility] lisdexamfet 2019-0 Yes [id number] 40mg Take 1 [facility] 40 mg 9-09 capsule by [facility] of capsule 00:00: mouth [place] 00 every Medical morning. [facility] lisdexamfet 2019-0 Yes [id number] 40mg Take 1 [facility] 40 mg 9-09 capsule by [facility] of capsule 00:00: mouth [place] 00 every Medical morning. [facility] lisdexamfet 2019-0 Yes [id number] 40mg Take 1 [facility] 40 mg 9-09 capsule by [facility] of capsule 00:00: mouth [place] 00 every Medical morning. [facility] lisdexamfet 2019-0 Yes [id number] 40mg Take 1 [facility] 40 mg 9-09 capsule by [facility] of capsule 00:00: mouth [place] 00 every Medical morning. [facility] lisdexamfet 2019-0 Yes [id number] 40mg Take 1 [facility] 40 mg 9-09 capsule by [facility] of capsule 00:00: mouth [place] 00 every Medical morning. [facility] lisdexamfet 2019-0 Yes [id number] 40mg Take 1 [facility] 40 mg 9-09 capsule by [facility] of capsule 00:00: mouth [place] 00 every Medical morning. [facility] lisdexamfet 2019-0 Yes [id number] 40mg Take 1 [facility] 40 mg 9-09 capsule by [facility] of capsule 00:00: mouth [place] 00 every Medical morning. [facility] lisdexamfet 2019-0 Yes [id number] 40mg Take 1 [facility] 40 mg 9-09 capsule by [facility] of capsule 00:00: mouth [place] 00 every Medical morning. [facility] lisdexamfet 2019-0 Yes [id number] 40mg Take 1 [facility] 40 mg 9-09 capsule by [facility] of capsule 00:00: mouth [place] 00 every Medical morning. [facility] lisdexamfet 2019-0 Yes [id number] 40mg Take 1 [facility] 40 mg 9-09 capsule by [facility] of capsule 00:00: mouth [place] 00 every Medical morning. [facility] lisdexamfet 2019-0 Yes [id number] 40mg Take 1 [facility] 40 mg 9-09 capsule by [facility] of capsule 00:00: mouth [place] 00 every Medical morning. [facility] lisdexamfet 2019-0 Yes [id number] 40mg Take 1 [facility] 40 mg 9-09 capsule by [facility] of capsule 00:00: mouth [place] 00 every Medical morning. [facility] lisdexamfet 2019-0 Yes [id number] 40mg Take 1 [facility] 40 mg 9-09 capsule by [facility] of capsule 00:00: mouth [place] 00 every Medical morning. [facility] lisdexamfet 2019-0 Yes [id number] 40mg Take 1 [facility] 40 mg 9-09 capsule by [facility] of capsule 00:00: mouth [place] 00 every Medical morning. [facility] lisdexamfet 2019-0 Yes [id number] 40mg Take 1 [facility] 40 mg 9-09 capsule by [facility] of capsule 00:00: mouth [place] 00 every Medical morning. [facility] lisdexamfet 2019-0 Yes [id number] 40mg Take 1 [facility] 40 mg 9-09 capsule by [facility] of capsule 00:00: mouth [place] 00 every Medical morning. [facility] lisdexamfet 2019-0 Yes [id number] 40mg Take 1 [facility] 40 mg 9-09 capsule by [facility] y of capsule 00:00: mouth [place] 00 every Medical morning. [facility] lisdexamfet 2019-0 Yes [id number] 40mg Take 1 [facility] 40 mg 9-09 capsule by [facility] y of capsule 00:00: mouth [place] 00 every Medical morning. [facility] lisdexamfet 2019-0 Yes [id number] 40mg Take 1 [facility] 40 mg 9-09 capsule by [facility] y of capsule 00:00: mouth [place] 00 every Medical morning. [facility] lisdexamfet 2019-0 Yes [id number] 40mg Take 1 [facility] 40 mg 9-09 capsule by it y of capsule 00:00: mouth [place] 00 every Medical morning. [facility] lisdexamfet 2019-0 Yes [id number] 40mg Take 1 [facility] 40 mg 9-09 capsule by it y of capsule 00:00: mouth [place] 00 every Medical morning. [facility] lisdexamfet 2019-0 Yes [id number] 40mg Take 1 [facility] 40 mg 9-09 capsule by it y of capsule 00:00: mouth [place] 00 every Medical morning. [facility] lisdexamfet 2019-0 Yes [id number] 40mg Take 1 [facility] amine 40 mg 9-09 capsule by it y of capsule 00:00: mouth [place] 00 every Medical morning. Branch lisdexamfet 2019-0 Yes [id number] 40mg Take 1 [facility] amine 40 mg 9-09 capsule by it y of capsule 00:00: mouth [place] 00 every Medical morning. Branch lisdexamfet 2019-0 Yes [id number] 40mg Take 1 [facility] amine 40 mg 9-09 capsule by it y of capsule 00:00: mouth [place] 00 every Medical morning. Branch lisdexamfet 2019-0 Yes [id number] 40mg Take 1 [facility] amine 40 mg 9-09 capsule by it y of capsule 00:00: mouth [place] 00 every Medical morning. Branch lisdexamfet 2019-0 Yes [id number] 40mg Take 1 [facility] amine 40 mg 9-09 capsule by it y of capsule 00:00: mouth [place] 00 every Medical morning. Branch lisdexamfet 2019-0 Yes [id number] 40mg Take 1 [facility] amine 40 mg 9-09 capsule by it y of capsule 00:00: mouth [place] 00 every Medical morning. Branch lisdexamfet 2019-0 Yes [id number] 40mg Take 1 [facility] amine 40 mg 9-09 capsule by it y of capsule 00:00: mouth [place] 00 every Medical morning. Branch lisdexamfet 2019-0 Yes [id number] 40mg Take 1 [facility] amine 40 mg 9-09 capsule by it y of capsule 00:00: mouth [place] 00 every Medical morning. Branch lisdexamfet 2019-0 Yes [id number] 40mg Take 1 [facility] amine 40 mg 9-09 capsule by it y of capsule 00:00: mouth [place] 00 every Medical morning. Branch lisdexamfet 2019-0 Yes [id number] 40mg Take 1 [facility] amine 40 mg 9-09 capsule by it y of capsule 00:00: mouth [place] 00 every Medical morning. Branch lisdexamfet 2019-0 Yes [id number] 40mg Take 1 [facility] amine 40 mg 9-09 capsule by it y of capsule 00:00: mouth [place] 00 every Medical morning. Branch lisdexamfet 2019-0 Yes [id number] 40mg Take 1 [facility] amine 40 mg 9-09 capsule by it y of capsule 00:00: mouth [place] 00 every Medical morning. Branch lisdexamfet 2019-0 Yes [id number] 40mg Take 1 [facility] amine 40 mg 9-09 capsule by it y of capsule 00:00: mouth [place] 00 every Medical morning. Branch lisdexamfet 2019-0 Yes [id number] 40mg Take 1 [facility] amine 40 mg 9-09 capsule by it y of capsule 00:00: mouth [place] 00 every Medical morning. Branch lisdexamfet 2019-0 Yes [id number] 40mg Take 1 [facility] amine 40 mg 9-09 capsule by it y of capsule 00:00: mouth [place] 00 every Medical morning. Branch lisdexamfet 2019-0 Yes [id number] 40mg Take 1 [facility] amine 40 mg 9-09 capsule by it y of capsule 00:00: mouth [place] 00 every Medical morning. Branch lisdexamfet 2019-0 Yes [id number] 40mg Take 1 [facility] amine 40 mg 9-09 capsule by it y of capsule 00:00: mouth [place] 00 every Medical morning. Branch lisdexamfet 2019-0 Yes [id number] 40mg Take 1 [facility] amine 40 mg 9-09 capsule by it y of capsule 00:00: mouth [place] 00 every Medical morning. Branch lisdexamfet 2019-0 Yes [id number] 40mg Take 1 [facility] amine 40 mg 9-09 capsule by it y of capsule 00:00: mouth [place] 00 every Medical morning. Branch lisdexamfet 2019- Yes [id number] 40mg Take 1 [facility] amine 40 mg 9-09 capsule by it y of capsule 00:00: mouth [place] 00 every Medical morning. Branch lisdexamfet Yes [id number] 40mg Take 1 [facility] amine 40 mg 9-09 capsule by it y of capsule 00:00: mouth [place] 00 every Medical morning. Branch lisdexamfet 2018- Yes [id number] 40mg Take 1 [facility] amine 40 mg 9-09 capsule by it y of capsule 00:00: mouth [place] 00 every Medical morning. Branch lisdexamfet Yes [id number] 40mg Take 1 [facility] amine 40 mg 9-09 capsule by it y of capsule 00:00: mouth [place] 00 every Medical morning. Branch XOPENEX HFA Yes [id number] INHALE 2 [facility] 45 9-06 PUFFS BY ity of mcg/actuati 00:00: MOUTH [place] on inhaler 00 EVERY 6 Medica l HOURS Branch NEEDED BEFORE EXERCISE OR FOR WHEEZING/S HORTNESS OF BREATH. XOPENEX HFA Yes [id number] INHALE 2 [facility] 45 9-06 PUFFS BY ity of mcg/actuati 00:00: MOUTH [place] on inhaler 00 EVERY 6 Medica l HOURS Branch NEEDED BEFORE EXERCISE OR FOR WHEEZING/S HORTNESS OF BREATH. XOPENEX HFA Yes [id number] INHALE 2 [facility] 45 9-06 PUFFS BY ity of mcg/actuati 00:00: MOUTH [place] on inhaler 00 EVERY 6 Medica l HOURS Branch NEEDED BEFORE EXERCISE OR FOR WHEEZING/S HORTNESS OF BREATH. XOPENEX HFA Yes [id number] INHALE 2 [facility] 45 9-05 PUFFS BY ity of mcg/actuati 00:00: MOUTH [place] on inhaler 00 EVERY 6 Medica l HOURS Branch NEEDED BEFORE EXERCISE OR FOR WHEEZING/S HORTNESS OF BREATH. XOPENEX HFA 2019- No [id number] INHALE 2 [facility] 45 9-05 09-06 PUFFS BY ity of mcg/actuati 00:00: 00:00 MOUTH [place] inhaler 00 :00 EVERY 6 Medica l HOURS Branch NEEDED BEFORE EXERCISE OR FOR WHEEZING/S HORTNESS OF BREATH. XOPENEX HFA Yes [id number] INHALE 2 [facility] 45 8-15 PUFFS BY ity of mcg/actuati 00:00: MOUTH [place] on inhaler 00 EVERY 6 Medica l HOURS Branch NEEDED BEFORE EXERCISE OR FOR WHEEZING, SHORTNESS OF BREATH. XOPENEX HFA Yes [id number] INHALE 2 [facility] 45 8-15 PUFFS BY ity of mcg/actuati 00:00: MOUTH [place] on inhaler 00 EVERY 6 Medica l HOURS Branch NEEDED BEFORE EXERCISE OR FOR WHEEZING, SHORTNESS OF BREATH. XOPENEX HFA Yes [id number] INHALE 2 [facility] 45 8-15 PUFFS BY ity of mcg/actuati 00:00: MOUTH [place] on inhaler 00 EVERY 6 Medica l HOURS Branch NEEDED BEFORE EXERCISE OR FOR WHEEZING, SHORTNESS OF BREATH. XOPENEX HFA Yes [id number] INHALE 2 [facility] 45 8-15 PUFFS BY ity of mcg/actuati 00:00: MOUTH [place] on inhaler 00 EVERY 6 Medica l HOURS Branch NEEDED BEFORE EXERCISE OR FOR WHEEZING, SHORTNESS OF BREATH. XOPENEX HFA 2019- No [id number] INHALE 2 [facility] 45 8-15 09-04 PUFFS BY ity of mcg/actuati 00:00: 00:00 MOUTH [place] inhaler 00 :00 EVERY 6 Medica l HOURS Branch NEEDED BEFORE EXERCISE OR FOR WHEEZING, SHORTNESS OF BREATH. amantadine Yes [id number] 200mg Take 2 [facility] HCl 100 mg 8-14 capsules ity o f capsule 00:00: by mouth 2 [place] 00 (two) Medical times Branch daily. SERTraline Yes [id number] 25mg Take 1 [facility] 25 mg 8-14 tablet by ity of tablet 00:00: mouth [place] 00 daily. Medical Branch ARIPiprazol 2018- Yes [id number] 2mg Take 1 [facility] e (ABILIFY) 8-14 tablet by ity of 2 mg tablet 00:00: mouth [place] 00 daily. Medical Branch busPIRone Yes [id number] 15mg Take 1 [facility] nivers 15 mg 8-14 tablet by ity of tablet 00:00: mouth 2 [place] 00 (two) Medical times Branch daily. risperiDONE 2019- Yes [id number] .25mg Take 1-2 [facility] (RISPERDAL) 8-14 tablets by it y of 0.25 mg 00:00: mouth 2 [place] tablet 00 (two) Medical times Branch daily. Take 2 tablets in the morning and 1 tablet at night time amantadine 2018-0 Yes [id number] 200mg Take 2 [facility] HCl 100 mg 8-14 capsules ity o f capsule 00:00: by mouth 2 [place] 00 (two) Medical times Branch daily. SERTraline 2018- Yes [id number] 25mg Take 1 [facility] nivers 25 mg 8-14 tablet by ity of tablet 00:00: mouth [place] 00 daily. Medical Branch ARIPiprazol 2018- Yes [id number] 2mg Take 1 [facility] e (ABILIFY) 8-14 tablet by ity of 2 mg tablet 00:00: mouth [place] 00 daily. Medical Branch busPIRone Yes [id number] 15mg Take 1 [facility] nivers 15 mg 8-14 tablet by ity of tablet 00:00: mouth 2 [place] 00 (two) Medical times Branch daily. risperiDONE Yes [id number] .25mg Take 1-2 [facility] (RISPERDAL) 8-14 tablets by it y of 0.25 mg 00:00: mouth 2 [place] tablet 00 (two) Medical times Branch daily. Take 2 tablets in the morning and 1 tablet at night time amantadine 2018-0 Yes [id number] 200mg Take 2 [facility] HCl 100 mg 8-14 capsules ity o f capsule 00:00: by mouth 2 [place] 00 (two) Medical times Branch daily. SERTraline 2018- Yes [id number] 25mg Take 1 [facility] nivers 25 mg 8-14 tablet by ity of tablet 00:00: mouth [place] 00 daily. Medical Branch ARIPiprazol Yes [id number] 2mg Take 1 [facility] e (ABILIFY) 8-14 tablet by ity of 2 mg tablet 00:00: mouth [place] 00 daily. Medical Branch busPIRone Yes [id number] 15mg Take 1 [facility] nivers 15 mg 8-14 tablet by ity of tablet 00:00: mouth 2 [place] 00 (two) Medical times Branch daily. risperiDONE 2018- Yes [id number] .25mg Take 1-2 [facility] (RISPERDAL) 8-14 tablets by it y of 0.25 mg 00:00: mouth 2 [place] tablet 00 (two) Medical times Branch daily. Take 2 tablets in the morning and 1 tablet at night time amantadine 2018- Yes [id number] 200mg Take 2 [facility] HCl 100 mg 8-14 capsules ity o f capsule 00:00: by mouth 2 [place] 00 (two) Medical times Branch daily. SERTraline 2018- Yes [id number] 25mg Take 1 [facility] nivers 25 mg 8-14 tablet by ity of tablet 00:00: mouth [place] 00 daily. Medical Branch ARIPiprazol Yes [id number] 2mg Take 1 [facility] e (ABILIFY) 8-14 tablet by ity of 2 mg tablet 00:00: mouth [place] 00 daily. Medical Branch busPIRone Yes [id number] 15mg Take 1 [facility] nivers 15 mg 8-14 tablet by ity of tablet 00:00: mouth 2 [place] 00 (two) Medical times Branch daily. risperiDONE Yes [id number] .25mg Take 1-2 [facility] (RISPERDAL) 8-14 tablets by it y of 0.25 mg 00:00: mouth 2 [place] tablet 00 (two) Medical times Branch daily. Take 2 tablets in the morning and 1 tablet at night time amantadine 2018- Yes [id number] 200mg Take 2 [facility] HCl 100 mg 8-14 capsules ity o f capsule 00:00: by mouth 2 [place] 00 (two) Medical times Branch daily. SERTraline 2018- Yes [id number] 25mg Take 1 [facility] nivers 25 mg 8-14 tablet by ity of tablet 00:00: mouth [place] 00 daily. Medical Branch ARIPiprazol Yes [id number] 2mg Take 1 [facility] e (ABILIFY) 8-14 tablet by ity of 2 mg tablet 00:00: mouth [place] 00 daily. Medical Branch busPIRone Yes [id number] 15mg Take 1 [facility] nivers 15 mg 8-14 tablet by ity of tablet 00:00: mouth 2 [place] 00 (two) Medical times Branch daily. risperiDONE 2018- Yes [id number] .25mg Take 1-2 [facility] (RISPERDAL) 8-14 tablets by it y of 0.25 mg 00:00: mouth 2 [place] tablet 00 (two) Medical times Branch daily. Take 2 tablets in the morning and 1 tablet at night time amantadine 2019-0 Yes [id number] 200mg Take 2 [facility] HCl 100 mg 8-14 capsules ity o f capsule 00:00: by mouth 2 [place] 00 (two) Medical times Branch daily. SERTraline 2019-0 Yes [id number] 25mg Take 1 [facility] nivers 25 mg 8-14 tablet by ity of tablet 00:00: mouth [place] 00 daily. Medical Branch ARIPiprazol 2019- Yes [id number] 2mg Take 1 [facility] e (ABILIFY) 8-14 tablet by ity of 2 mg tablet 00:00: mouth [place] 00 daily. Medical Branch busPIRone 2018- Yes [id number] 15mg Take 1 [facility] nivers 15 mg 8-14 tablet by ity of tablet 00:00: mouth 2 [place] 00 (two) Medical times Branch daily. risperiDONE 2018- Yes [id number] .25mg Take 1-2 [facility] (RISPERDAL) 8-14 tablets by it y of 0.25 mg 00:00: mouth 2 [place] tablet 00 (two) Medical times Branch daily. Take 2 tablets in the morning and 1 tablet at night time amantadine 2018-0 Yes [id number] 200mg Take 2 [facility] HCl 100 mg 8-14 capsules ity o f capsule 00:00: by mouth 2 [place] 00 (two) Medical times Branch daily. SERTraline 2018-0 Yes [id number] 25mg Take 1 [facility] nivers 25 mg 8-14 tablet by ity of tablet 00:00: mouth [place] 00 daily. Medical Branch ARIPiprazol 2018-0 Yes [id number] 2mg Take 1 [facility] e (ABILIFY) 8-14 tablet by ity of 2 mg tablet 00:00: mouth [place] 00 daily. Medical Branch busPIRone 2018-0 Yes [id number] 15mg Take 1 [facility] nivers 15 mg 8-14 tablet by ity of tablet 00:00: mouth 2 [place] 00 (two) Medical times Branch daily. risperiDONE 2018- Yes [id number] .25mg Take 1-2 [facility] (RISPERDAL) 8-14 tablets by it y of 0.25 mg 00:00: mouth 2 [place] tablet 00 (two) Medical times Branch daily. Take 2 tablets in the morning and 1 tablet at night time amantadine 2019- Yes [id number] 200mg Take 2 [facility] HCl 100 mg 8-14 capsules ity o f capsule 00:00: by mouth 2 [place] 00 (two) Medical times Branch daily. SERTraline 2019- Yes [id number] 25mg Take 1 [facility] nivers 25 mg 8-14 tablet by ity of tablet 00:00: mouth [place] 00 daily. Medical Branch ARIPiprazol 2018- Yes [id number] 2mg Take 1 [facility] e (ABILIFY) 8-14 tablet by ity of 2 mg tablet 00:00: mouth [place] 00 daily. Medical Branch busPIRone Yes [id number] 15mg Take 1 [facility] nivers 15 mg 8-14 tablet by ity of tablet 00:00: mouth 2 [place] 00 (two) Medical times Branch daily. risperiDONE Yes [id number] .25mg Take 1-2 [facility] (RISPERDAL) 8-14 tablets by it y of 0.25 mg 00:00: mouth 2 [place] tablet 00 (two) Medical times Branch daily. Take 2 tablets in the morning and 1 tablet at night time amantadine 2018- Yes [id number] 200mg Take 2 [facility] HCl 100 mg 8-14 capsules ity o f capsule 00:00: by mouth 2 [place] 00 (two) Medical times Branch daily. SERTraline Yes [id number] 25mg Take 1 [facility] nivers 25 mg 8-14 tablet by ity of tablet 00:00: mouth [place] 00 daily. Medical Branch ARIPiprazol Yes [id number] 2mg Take 1 [facility] e (ABILIFY) 8-14 tablet by ity of 2 mg tablet 00:00: mouth [place] 00 daily. Medical Branch busPIRone 2018- Yes [id number] 15mg Take 1 [facility] nivers 15 mg 8-14 tablet by ity of tablet 00:00: mouth 2 [place] 00 (two) Medical times Branch daily. risperiDONE 2019- Yes [id number] .25mg Take 1-2 [facility] (RISPERDAL) 8-14 tablets by it y of 0.25 mg 00:00: mouth 2 [place] tablet 00 (two) Medical times Branch daily. Take 2 tablets in the morning and 1 tablet at night time amantadine Yes [id number] 200mg Take 2 [facility] HCl 100 mg 8-14 capsules ity o f capsule 00:00: by mouth 2 [place] 00 (two) Medical times Branch daily. SERTraline 2018- Yes [id number] 25mg Take 1 [facility] n[facility] 25 mg 8-14 tablet by ity of tablet 00:00: mouth [place] 00 daily. Medical Branch ARIPiprazol 2018- Yes [id number] 2mg Take 1 [facility] e (ABILIFY) 8-14 tablet by ity of 2 mg tablet 00:00: mouth [place] 00 daily. Medical Branch busPIRone Yes [id number] 15mg Take 1 [facility] nivers 15 mg 8-14 tablet by ity of tablet 00:00: mouth 2 [place] 00 (two) Medical times Branch daily. risperiDONE Yes [id number] .25mg Take 1-2 [facility] (RISPERDAL) 8-14 tablets by it y of 0.25 mg 00:00: mouth 2 [place] tablet 00 (two) Medical times Branch daily. Take 2 tablets in the morning and 1 tablet at night time cloNIDine Yes [id number] .1mg Take 1 [place] HCl 8-07 tablet by ity of (KAPVAY) 00:00: mouth at [place] 0.1 mg 00 bedtime. Medical tablet Branch cloNIDine Yes [id number] .1mg Take 1 [facility] [place] HCl 8-07 tablet by ity of (KAPVAY) 00:00: mouth at [place] 0.1 mg 00 bedtime. Medical tablet Branch cloNIDine 2019- No [id number] .1mg Take 1 [facility] n[facility] HCl 8-07 08-14 tablet by ity of (KAPVAY) 00:00: 00:00 mouth at [place] 0.1 mg 00 :00 bedtime. Medical tablet Branch cloNIDine 2019- No [id number] .1mg Take 1 [facility] nivers HCl 8-07 08-14 tablet by ity of (KAPVAY) 00:00: 00:00 mouth at [place] 0.1 mg 00 :00 bedtime. Medical tablet Branch XOPENEX HFA Yes [id number] INHALE 2 [facility] 45 7-29 PUFFS BY ity of mcg/actuati 00:00: MOUTH [place] on inhaler 00 EVERY 6 Medica l HOURS Branch NEEDED FOR SHORTNESS OF BREATH, WHEEZING OR BEFORE EXERCISE. XOPENEX HFA Yes [id number] INHALE 2 [facility] 45 7-29 PUFFS BY ity of mcg/actuati 00:00: MOUTH [place] on inhaler 00 EVERY 6 Medica l HOURS Branch NEEDED FOR SHORTNESS OF BREATH, WHEEZING OR BEFORE EXERCISE. XOPENEX HFA Yes [id number] INHALE 2 [facility] 45 7-29 PUFFS BY ity of mcg/actuati 00:00: MOUTH [place] on inhaler 00 EVERY 6 Medica l HOURS Branch NEEDED FOR SHORTNESS OF BREATH, WHEEZING OR BEFORE EXERCISE. XOPENEX HFA Yes [id number] INHALE 2 [facility] 45 7-29 PUFFS BY ity of mcg/actuati 00:00: MOUTH [place] on inhaler 00 EVERY 6 Medica l HOURS Branch NEEDED FOR SHORTNESS OF BREATH, WHEEZING OR BEFORE EXERCISE. XOPENEX HFA 2019- No [id number] INHALE 2 [facility] 45 7-29 08-15 PUFFS BY ity of mcg/actuati 00:00: 00:00 MOUTH [place] on inhaler 00 :00 EVERY 6 Medica l HOURS Branch NEEDED FOR SHORTNESS OF BREATH, WHEEZING OR BEFORE EXERCISE. XOPENEX HFA 2019- No [id number] INHALE 2 [facility] 45 7-29 08-15 PUFFS BY ity of mcg/actuati 00:00: 00:00 MOUTH [place] on inhaler 00 :00 EVERY 6 Medica l HOURS Branch NEEDED FOR SHORTNESS OF BREATH, WHEEZING OR BEFORE EXERCISE. XOPENEX HFA 2019- No [id number] INHALE 2 [facility] 45 7-29 08-15 PUFFS BY ity of mcg/actuati 00:00: 00:00 MOUTH [place] on inhaler 00 :00 EVERY 6 Medica l HOURS Branch NEEDED FOR SHORTNESS OF BREATH, WHEEZING OR BEFORE EXERCISE. amantadine Yes [id number] 200mg Take 20 mL [facility] HCl 50 mg/5 7-23 by mouth 2 it y of mL solution 00:00: (two) [place] 00 times Medical daily. Branch amantadine Yes [id number] 200mg Take 20 mL [facility] HCl 50 mg/5 7-23 by mouth 2 it y of mL solution 00:00: (two) [place] 00 times Medical daily. Branch amantadine Yes [id number] 200mg Take 20 mL [facility] HCl 50 mg/5 7-23 by mouth 2 it y of mL solution 00:00: (two) [place] 00 times Medical daily. Branch amantadine Yes [id number] 200mg Take 20 mL [facility] HCl 50 mg/5 7-23 by mouth 2 it y of mL solution 00:00: (two) [place] 00 times Medical daily. Branch amantadine 2018- No [id number] 200mg Take 20 mL [facility] HCl 50 mg/5 7-23 08-14 by mouth 2 i ty of mL solution 00:00: 00:00 (two) [place] 00 :00 times Medical daily. Branch amantadine 2018- No [id number] 200mg Take 20 mL [facility] HCl 50 mg/5 7-23 08-14 by mouth 2 i ty of mL solution 00:00: 00:00 (two) [place] 00 :00 times Medical daily. Branch busPIRone Yes [id number] 15mg Take 1 U nivers 15 mg 7-18 tablet by ity of tablet 00:00: mouth 2 [place] (two) Medical times Branch daily. busPIRone Yes [id number] 15mg Take 1 U nivers 15 mg 7-18 tablet by ity of tablet 00:00: mouth 2 [place] (two) Medical times Branch daily. busPIRone Yes [id number] 15mg Take 1 U nivers 15 mg 7-18 tablet by ity of tablet 00:00: mouth 2 [place] (two) Medical times Branch daily. busPIRone Yes [id number] 15mg Take 1 U nivers 15 mg 7-18 tablet by ity of tablet 00:00: mouth 2 [place] (two) Medical times Branch daily. busPIRone 2019- No [id number] 15mg Take 1 [facility] 15 mg 7-18 08-14 tablet by ity of tablet 00:00: 00:00 mouth 2 [place] 00 :00 (two) Medical times Branch daily. busPIRone 2019- No [id number] 15mg Take 1 [facility] 15 mg 7-18 08-14 tablet by ity of tablet 00:00: 00:00 mouth 2 [place] 00 :00 (two) Medical times Branch daily. XOPENEX HFA 2019- No [id number] INHALE 2 [facility] 45 7-10 07-29 PUFFS BY ity of mcg/actuati 00:00: 00:00 MOUTH [place] on inhaler 00 :00 EVERY 6 Medica l HOURS Branch NEEDED SHORTNESS OF BREATH, WHEEZING, OR BEFORE EXERCISE fluticasone 2018- Yes [id number] 1{puff} Inhale 1 [facility] propionate 7-01 Puff 2 ity of (FLOVENT 00:00: (two) [place] HFA) 110 00 times Medical mcg/actuati daily. Branch on inhaler fluticasone Yes [id number] 1{puff} Inhale 1 [facility] propionate 7-01 Puff 2 ity of (FLOVENT 00:00: (two) [place] HFA) 110 00 times Medical mcg/actuati daily. Branch on inhaler fluticasone Yes [id number] 1{puff} Inhale 1 [facility] propionate 7-01 Puff 2 ity of (FLOVENT 00:00: (two) [place] HFA) 110 00 times Medical mcg/actuati daily. Branch on inhaler fluticasone Yes [id number] 1{puff} Inhale 1 [facility] propionate 7-01 Puff 2 ity of (FLOVENT 00:00: (two) [place] HFA) 110 00 times Medical mcg/actuati daily. Branch on inhaler fluticasone Yes [id number] 1{puff} Inhale 1 [facility] propionate 7-01 Puff 2 ity of (FLOVENT 00:00: (two) [place] HFA) 110 00 times Medical mcg/actuati daily. Branch on inhaler fluticasone Yes [id number] 1{puff} Inhale 1 [facility] propionate 7-01 Puff 2 ity of (FLOVENT 00:00: (two) [place] HFA) 110 00 times Medical mcg/actuati daily. Branch on inhaler fluticasone Yes [id number] 1{puff} Inhale 1 [facility] propionate 7-01 Puff 2 ity of (FLOVENT 00:00: (two) [place] HFA) 110 00 times Medical mcg/actuati daily. Branch on inhaler fluticasone Yes [id number] 1{puff} Inhale 1 [facility] propionate 7-01 Puff 2 ity of (FLOVENT 00:00: ([facility]) 110 00 times Medical mcg/actuati daily. Branch on inhaler fluticasone Yes [id number] 1{puff} Inhale 1 [facility] propionate 7-01 Puff 2 ity of (FLOVENT 00:00: ([facility]) 110 00 times Medical mcg/actuati daily. Branch on inhaler fluticasone Yes [id number] 1{puff} Inhale 1 [facility] propionate 7-01 Puff 2 ity of (FLOVENT 00:00: ([facility]) 110 00 times Medical mcg/actuati daily. Branch on inhaler fluticasone Yes [id number] 1{puff} Inhale 1 [facility] propionate 7-01 Puff 2 ity of (FLOVENT 00:00: [facility]) 110 00 times Medical mcg/actuati daily. Branch on inhaler fluticasone Yes [id number] 1{puff} Inhale 1 [facility] propionate 7-01 Puff 2 ity of (FLOVENT 00:00: [facility]) 110 00 times Medical mcg/actuati daily. Branch on inhaler fluticasone Yes [id number] 1{puff} Inhale 1 [facility] propionate 7-01 Puff 2 ity of (FLOVENT 00:00: ([facility]) 110 00 times Medical mcg/actuati daily. Branch on inhaler fluticasone Yes [id number] 1{puff} Inhale 1 [facility] propionate 7-01 Puff 2 ity of (FLOVENT 00:00: [facility] 110 00 times Medical mcg/actuati daily. Branch on inhaler ARIPiprazol Yes [id number] 2mg Take 1 [facility] e (ABILIFY) 6-20 tablet by ity of 2 mg tablet 00:00: [facility] 00 daily. Medical Branch ARIPiprazol Yes [id number] 2mg Take 1 [facility] e (ABILIFY) 6-20 tablet by ity of 2 mg tablet 00:00: mouth [place] 00 daily. Medical Branch ARIPiprazol 2019-0 Yes [id number] 2mg Take 1 [facility] e (ABILIFY) 6-20 tablet by ity of 2 mg tablet 00:00: mouth [place] 00 daily. [facility] Branch ARIPiprazol 2018-0 Yes [id number] 2mg Take 1 [facility] e (ABILIFY) 6-20 tablet by ity of 2 mg tablet 00:00: mouth [place] 00 daily. [facility] Branch ARIPiprazol 2018-0 2019- No [id number] 2mg Take 1 [facility] e (ABILIFY) 6-20 08-14 tablet by it y of 2 mg tablet 00:00: 00:00 mouth [place] 00 :00 daily. [facility] Branch ARIPiprazol 2018- 2019- No [id number] 2mg Take 1 [facility] e (ABILIFY) 6-20 08-14 tablet by it y of 2 mg tablet 00:00: 00:00 mouth [place] 00 :00 daily. Medical Branch lisdexamfet 2019-0 Yes [id number] 40mg Take 1 [facility] amine 40 mg 6-19 capsule by it y of capsule 00:00: mouth [place] 00 every Medical morning. Branch lisdexamfet 2019-0 Yes [id number] 40mg Take 1 [facility] amine 40 mg 6-19 capsule by it y of capsule 00:00: mouth [place] 00 every Medical morning. Branch lisdexamfet 2019-0 Yes [id number] 40mg Take 1 [facility] amine 40 mg 6-19 capsule by it y of capsule 00:00: mouth [place] 00 every Medical morning. Branch lisdexamfet 2019-0 Yes [id number] 40mg Take 1 [facility] amine 40 mg 6-19 capsule by it y of capsule 00:00: mouth [place] 00 every Medical morning. Branch lisdexamfet 2019-0 Yes [id number] 40mg Take 1 [facility] amine 40 mg 6-19 capsule by it y of capsule 00:00: mouth [place] 00 every Medical morning. Branch lisdexamfet 2019-0 Yes [id number] 40mg Take 1 [facility] amine 40 mg 6-19 capsule by it y of capsule 00:00: mouth [place] 00 every Medical morning. Branch lisdexamfet 2019-0 Yes [id number] 40mg Take 1 [facility] amine 40 mg 6-19 capsule by it y of capsule 00:00: mouth [place] 00 every Medical morning. Branch lisdexamfet 2019-0 Yes [id number] 40mg Take 1 [facility] amine 40 mg 6-19 capsule by it y of capsule 00:00: mouth [place] 00 every Medical morning. Branch lisdexamfet 2018-0 Yes [id number] 40mg Take 1 [facility] amine 40 mg 6-19 capsule by it y of capsule 00:00: mouth [place] 00 every Medical morning. Branch lisdexamfet 2018-0 Yes [id number] 40mg Take 1 [facility] amine 40 mg 6-19 capsule by it y of capsule 00:00: mouth [place] 00 every Medical morning. Branch lisdexamfet 2018- Yes [id number] 40mg Take 1 [facility] amine 40 mg 6-19 capsule by it y of capsule 00:00: mouth [place] 00 every Medical morning. Branch lisdexamfet Yes [id number] 40mg Take 1 [facility] amine 40 mg 6-19 capsule by it y of capsule 00:00: mouth [place] 00 every Medical morning. Branch lisdexamfet Yes [id number] 40mg Take 1 [facility] amine 40 mg 6-19 capsule by it y of capsule 00:00: mouth [place] 00 every Medical morning. Branch lisdexamfet 2019- No [id number] 40mg Take 1 [facility] amine 40 mg 6-19 09-09 capsule by i ty of capsule 00:00: 00:00 mouth [place] 00 :00 every Medical morning. Branch cloNIDine Yes [id number] .1mg Take 1 [place] HCl 5-07 tablet by ity of (KAPVAY) 00:00: mouth at [place] 0.1 mg 00 bedtime. Medical tablet Branch cloNIDine Yes [id number] .1mg Take 1 [place] HCl 5-07 tablet by ity of (KAPVAY) 00:00: mouth at [place] 0.1 mg 00 bedtime. Medical tablet Branch cloNIDine 2019- No [id number] .1mg Take 1 U nivers HCl 5-07 08-07 tablet by ity of (KAPVAY) 00:00: 00:00 mouth at [place] 0.1 mg 00 :00 bedtime. Medical tablet Branch XOPENEX HFA 2018- Yes [id number] INHALE 2 [facility] 45 5-06 PUFFS BY ity of mcg/actuati 00:00: MOUTH [place] on inhaler 00 EVERY 6 Medica l HOURS Branch NEEDED BEFORE EXERCISE OR FOR WHEEZING, SHORTNESS OF BREATH. XOPENEX HFA Yes [id number] INHALE 2 [facility] 45 5-06 PUFFS BY ity of mcg/actuati 00:00: MOUTH [place] on inhaler 00 EVERY 6 Medica l HOURS Branch NEEDED BEFORE EXERCISE OR FOR WHEEZING, SHORTNESS OF BREATH. XOPENEX HFA Yes [id number] INHALE 2 [facility] 45 5-06 PUFFS BY ity of mcg/actuati 00:00: MOUTH [place] on inhaler 00 EVERY 6 Medica l HOURS Branch NEEDED BEFORE EXERCISE OR FOR WHEEZING, SHORTNESS OF BREATH. XOPENEX HFA Yes [id number] INHALE 2 [facility] 45 5-06 PUFFS BY ity of mcg/actuati 00:00: MOUTH [place] on inhaler 00 EVERY 6 Medica l HOURS Branch NEEDED BEFORE EXERCISE OR FOR WHEEZING, SHORTNESS OF BREATH. XOPENEX HFA 2019- No [id number] INHALE 2 [facility] 45 5-06 08-15 PUFFS BY ity of mcg/actuati 00:00: 00:[place]TH [place] 00 :00 EVERY 6 Medica l HOURS Branch NEEDED BEFORE EXERCISE OR FOR WHEEZING, SHORTNESS OF BREATH. XOPENEX HFA 2019- No [id number] INHALE 2 [facility] 45 5-06 08-15 PUFFS BY ity of mcg/actuati 00:00: 00:[place]TH [place] 00 :00 EVERY 6 Medica l HOURS Branch NEEDED BEFORE EXERCISE OR FOR WHEEZING, SHORTNESS OF BREATH. XOPENEX HFA 2019- No [id number] INHALE 2 [facility] 45 5-06 08-15 PUFFS BY ity of mcg/actuati 00:00: 00:[place]TH [place] 00 :00 EVERY 6 Medica l HOURS Branch NEEDED BEFORE EXERCISE OR FOR WHEEZING, SHORTNESS OF BREATH. HOMEOPATHIC 2019- No Take by [place] DRUGS 11-09-24 mouth. ity of (THROAT 16:25: 00:00 [place] [...] suspension times Branch daily. SERTraline 2018- Yes [id number] 25mg Take 0.5-1 [facility] 50 mg 4-24 tablets by ity of tablet 00:00: mouth [place] 00 daily. Medical Branch risperiDONE 2018- Yes [id number] .5mg Take 2 [facility] (RISPERDAL) 4-24 tablets by it y of 0.25 mg 00:00: mouth 2 [place] tablet 00 (two) Medical times Branch daily. SERTraline 2018- Yes [id number] 25mg Take 0.5-1 [facility] 50 mg 4-24 tablets by ity of tablet 00:00: mouth [place] 00 daily. Medical Branch risperiDONE 2018- Yes [id number] .5mg Take 2 [facility] (RISPERDAL) 4-24 tablets by it y of 0.25 mg 00:00: mouth 2 [place] tablet 00 (two) Medical times Branch daily. SERTraline 2018- Yes [id number] 25mg Take 0.5-1 [facility] 50 mg 4-24 tablets by ity of tablet 00:00: mouth [place] 00 daily. Medical Branch risperiDONE 2018-0 Yes [id number] .5mg Take 2 [facility] (RISPERDAL) 4-24 tablets by it y of 0.25 mg 00:00: mouth 2 [place] tablet 00 (two) Medical times Branch daily. SERTraline 2018-0 Yes [id number] 25mg Take 0.5-1 [facility] 50 mg 4-24 tablets by ity of tablet 00:00: mouth [place] 00 daily. Medical Branch risperiDONE 2018-0 Yes [id number] .5mg Take 2 [facility] (RISPERDAL) 4-24 tablets by it y of 0.25 mg 00:00: mouth 2 [place] tablet 00 (two) Medical times Branch daily. SERTraline 2018- 2019- No [id number] 25mg Take 0.5-1 [facility] 50 mg 4-24 08-14 tablets by ity of tablet 00:00: 00:00 mouth [place] 00 :00 daily. Medical Branch risperiDONE 2019- No [id number] .5mg Take 2 [facility] (RISPERDAL) 4-24 08-14 tablets by i ty of 0.25 mg 00:00: 00:00 mouth 2 [place] tablet 00 :00 (two) Medical times Branch daily. SERTraline 2019- No [id number] 25mg Take 0.5-1 [facility] 50 mg 4-24 08-14 tablets by ity of tablet 00:00: 00:00 mouth [place] 00 :00 daily. Medical Branch risperiDONE 2018- No [id number] .5mg Take 2 [facility] (RISPERDAL) 4-24 08-14 [...] 00 EVERY Medical DAY(HAILEY Main MD) ARIPIPRAZOL 2019- No TAKE 1 [facility] vers E 5 mg 1-04 08-14 TABLET BY ity of tablet 00:00: 00:00 MOUTH [place] 00 :00 EVERY Medical DAY(HAILEY Main MD) ARIPIPRAZOL 2019- No TAKE 1 Uni vers E 5 mg 1-04 08-14 TABLET BY ity of tablet 00:00: 00:00 MOUTH [place] 00 :00 EVERY Medical DAY(HAILEY Main MD) KEPPRA 100 2017-07 Yes 12 ml BID [place] MG/ML ORAL 2-19 , per mom ity of SOLN 21:44: [address] 2017-07 Yes 20mg Take 20 mg [facility] E MAG 2-19 by mouth ity of TRIHYDRATE 21:44: once now. [place] (NEXIUM 48 Medical ORAL) [place] [address] 2017-07 Yes 12 ml BID [place] MG/ML ORAL 2-19 , per mom ity of SOLN 21:44: [address] 2017-07 Yes 20mg Take 20 mg [facility] E MAG 2-19 by mouth ity of TRIHYDRATE 21:44: once now. [place] (N[facility]IUM 48 Medical ORAL) [place] [address] 2017-07 Yes 12 ml BID [place] MG/ML ORAL 2-19 , per mom ity of SOLN 21:44: [address] 2017-07 Yes 20mg Take 20 mg [facility] E MAG 2-19 by mouth ity of TRIHYDRATE 21:44: once now. [place] (NEXIUM 48 Medical ORAL) [place] [address] 2017-07 Yes 12 ml BID [place] MG/ML ORAL 2-19 , per mom ity of SOLN 21:44: [address] 2017-07 Yes 20mg Take 20 mg [facility] E MAG 2-19 by mouth ity of TRIHYDRATE 21:44: once now. [place] (NEXIUM 48 Medical ORAL) [place] [address] 2017-07 Yes 12 ml BID [place] MG/ML ORAL 2-19 , per mom ity of SOLN 21:44: [address] 2017-07 Yes 20mg Take 20 mg [facility] E MAG 2-19 by mouth ity of TRIHYDRATE 21:44: once now. [place] (NEXIUM 48 Medical ORAL) [place] [address] 2017-07 Yes 12 ml BID [place] MG/ML ORAL 2-19 , per mom ity of SOLN 21:44: [address] 2017-07 Yes 20mg Take 20 mg [facility] E MAG 2-19 by mouth ity of TRIHYDRATE 21:44: once now. [place] (NEXI[facility] 48 Medical ORAL) [place] [address] 2017-07 Yes 12 ml BID [place] MG/ML ORAL 2-19 , per mom ity of SOLN 21:44: [address] 2017-07 Yes 20mg Take 20 mg [facility] E MAG 2-19 by mouth ity of TRIHYDRATE 21:44: once now. [place] (NEXIUM 48 Medical ORAL) [place] [address] 2017-07 Yes 12 ml BID [place] MG/ML ORAL 2-19 , per mom ity of SOLN 21:44: [address] 2017-07 Yes 20mg Take 20 mg [facility] E MAG 2-19 by mouth ity of TRIHYDRATE 21:44: once now. [place] (NEXIUM 48 Medical ORAL) [place] [address] 2017-07 Yes 12 ml BID [place] MG/ML ORAL 2-19 , per mom ity of SOLN 21:44: [place] [id number] 2017-07 Yes 12 ml BID [place] MG/ML ORAL 2-19 , per mom ity of SOLN 21:44: [address] 2017-07 Yes 20mg Take 20 mg [facility] E MAG 2-19 by mouth ity of TRIHYDRATE 21:44: once now. [place] (N[facility] 48 Medical ORAL) [facility] 2017-07 Yes 20mg Take 20 mg [facility] E MAG 2-19 by mouth ity of TRIHYDRATE 21:44: once now. [place] (N[facility] 48 Medical ORAL) [place] [address] 2017-07 Yes 12 ml BID [place] MG/ML ORAL 2-19 , per mom ity of SOLN 21:44: [address] 2017-07 Yes 20mg Take 20 mg [facility] E MAG 2-19 by mouth ity of TRIHYDRATE 21:44: once now. [place] (NEXIUM 48 Medical ORAL) [place] [address] 2017-07 Yes 12 ml BID [place] MG/ML ORAL 2-19 , per mom ity of SOLN 21:44: [address] 2017-07 Yes 20mg Take 20 mg [facility] E MAG 2-19 by mouth ity of TRIHYDRATE 21:44: once now. [place] (NEXIUM 48 Medical ORAL) [place] [address] 2017-07 Yes 12 ml BID [place] MG/ML ORAL 2-19 , per mom ity of SOLN 21:44: [address] 2017-07 Yes 20mg Take 20 mg [facility] E MAG 2-19 by mouth ity of TRIHYDRATE 21:44: once now. [place] (N[facility] 48 Medical ORAL) [place] [address] 2017-07 Yes 12 ml BID [place] MG/ML ORAL 2-19 , per mom ity of SOLN 21:44: [address] 2017-07 Yes 20mg Take 20 mg [facility] E MAG 2-19 by mouth ity of TRIHYDRATE 21:44: once now. [place] (N[facility]IUM 48 Medical ORAL) [place] [address] 2017-07 Yes 12 ml BID [place] MG/ML ORAL 2-19 , per mom ity of SOLN 21:44: [address] 2017-07 Yes 20mg Take 20 mg [facility] E MAG 2-19 by mouth ity of TRIHYDRATE 21:44: once now. [place] (NEXIUM 48 Medical ORAL) [place] [address] 2017-07 Yes 12 ml BID [place] MG/ML ORAL 2-19 , per mom ity of SOLN 21:44: [address] 2017-07 Yes 20mg Take 20 mg [facility] E MAG 2-19 by mouth ity of TRIHYDRATE 21:44: once now. [place] (NEXI[facility] 48 Medical ORAL) [place] [address] 2017-07 Yes 12 ml BID [place] MG/ML ORAL 2-19 , per mom ity of SOLN 21:44: [address] 2017-07 Yes 20mg Take 20 mg [facility] E MAG 2-19 by mouth ity of TRIHYDRATE 21:44: once now. [place] (NEXIUM 48 Medical ORAL) [place] [address] 2017-07 Yes 12 ml BID [place] MG/ML ORAL 2-19 , per mom ity of SOLN 21:44: [address] 2017-07 Yes 20mg Take 20 mg [facility] E MAG 2-19 by mouth ity of TRIHYDRATE 21:44: once now. [place] (NEXIUM 48 Medical ORAL) [place] [address] 2017-07 Yes 12 ml BID [place] MG/ML ORAL 2-19 , per mom ity of SOLN 21:44: [address] 2017-07 Yes 20mg Take 20 mg [facility] E MAG 2-19 by mouth ity of TRIHYDRATE 21:44: once now. [place] (NEXIUM 48 Medical ORAL) [place] [address] 2017-07 Yes 12 ml BID [place] MG/ML ORAL 2-19 , per mom ity of SOLN 21:44: [place] [address] 2017-07 Yes 12 ml BID [place] MG/ML ORAL 2-19 , per mom ity of SOLN 21:44: [address] 2017-07 Yes 20mg Take 20 mg [facility] E MAG 2-19 by mouth ity of TRIHYDRATE 21:44: once now. [place] (NEXIUM 48 Medical ORAL) [facility] 2017-07 Yes 20mg Take 20 mg [facility] E MAG 2-19 by mouth ity of TRIHYDRATE 21:44: once now. [place] (NEXIUM 48 Medical ORAL) [place] [address] 2017-07 Yes 12 ml BID [place] MG/ML ORAL 2-19 , per mom ity of SOLN 21:44: [address] 2017-07 Yes 20mg Take 20 mg [facility] E MAG 2-19 by mouth ity of TRIHYDRATE 21:44: once now. [place] (NEXIUM 48 Medical ORAL) [place] [address] 2017-07 Yes 12 ml BID [place] MG/ML ORAL 2-19 , per mom ity of SOLN 21:44: [address] 2017-07 Yes 20mg Take 20 mg [facility] E MAG 2-19 by mouth ity of TRIHYDRATE 21:44: once now. [place] (NEXIUM 48 Medical ORAL) [place] [address] 2017-07 Yes 12 ml BID [place] MG/ML ORAL 2-19 , per mom ity of SOLN 21:44: [address] 2017-07 Yes 20mg Take 20 mg [facility] E MAG 2-19 by mouth ity of TRIHYDRATE 21:44: once now. [place] (NEXIUM 48 Medical ORAL) [place] [address] 2017-07 Yes 12 ml BID [place] MG/ML ORAL 2-19 , per mom ity of SOLN 21:44: [address] 2017-07 Yes 20mg Take 20 mg [facility] E MAG 2-19 by mouth ity of TRIHYDRATE 21:44: once now. [place] (NEXIUM 48 Medical ORAL) [place] [address] 2017-07 Yes 12 ml BID [place] MG/ML ORAL 2-19 , per mom ity of SOLN 21:44: [address] [facility] Yes 20mg Take 20 mg [facility] E MAG 2-19 by mouth ity of TRIHYDRATE 21:44: once now. [place] (NEXIUM 48 Medical ORAL) [place] [address] 2017-07 Yes 12 ml BID [place] MG/ML ORAL 2-19 , per mom ity of SOLN 21:44: [address] 2017-07 Yes 20mg Take 20 mg [facility] E MAG 2-19 by mouth ity of TRIHYDRATE 21:44: once now. [place] (NEXIUM 48 Medical ORAL) [place] [address] 2017-07 Yes 12 ml BID [place] MG/ML ORAL 2-19 , per mom ity of SOLN 21:44: [address] 2017-07 Yes 20mg Take 20 mg [facility] E MAG 2-19 by mouth ity of TRIHYDRATE 21:44: once now. [place] (NEXIUM 48 Medical ORAL) [place] [address] 2017-07 Yes 12 ml BID [place] MG/ML ORAL 2-19 , per mom ity of SOLN 15:44: [address] 2017-07 Yes 20mg Take 20 mg [facility] E MAG 2-19 by mouth ity of TRIHYDRATE 15:44: once now. [place] (NEXIUM 48 Medical ORAL) [place] [address] 2017-07 Yes 12 ml BID [place] MG/ML ORAL 2-19 , per mom ity of SOLN 15:44: [address] [facility] Yes 20mg Take 20 mg [facility] E MAG 2-19 by mouth ity of TRIHYDRATE 15:44: once now. [place] (NEXIUM 48 Medical ORAL) [place] [address] 2017-07 Yes 12 ml BID [place] MG/ML ORAL 2-19 , per mom ity of SOLN 15:44: [address] ESOMEPRAZOL 2017-07 Yes 20mg Take 20 mg [facility] E MAG 2-19 by mouth ity of TRIHYDRATE 15:44: once now. [place] (NEXIUM 48 Medical ORAL) [place] [address] 2017-07 Yes 12 ml BID [place] MG/ML ORAL 2-19 , per mom ity of SOLN 15:44: [address] 2017-07 Yes 20mg Take 20 mg [facility] E MAG 2-19 by mouth ity of TRIHYDRATE 15:44: once now. [place] (NEXIUM 48 Medical ORAL) [place] [address] 2017-07 Yes 12 ml BID [place] MG/ML ORAL 2-19 , per mom ity of SOLN 15:44: [address] 2017-07 Yes 20mg Take 20 mg [facility] E MAG 2-19 by mouth ity of TRIHYDRATE 15:44: once now. [place] (NEXIUM 48 Medical ORAL) [place] [address] 2017-07 Yes 12 ml BID [place] MG/ML ORAL 2-19 , per mom ity of SOLN 15:44: [address] 2017-07 Yes 20mg Take 20 mg [facility] E MAG 2-19 by mouth ity of TRIHYDRATE 15:44: once now. [place] (NEXIUM 48 Medical ORAL) [place] [address] 2017-07 Yes 12 ml BID [place] MG/ML ORAL 2-19 , per mom ity of SOLN 15:44: [address] 2017-07 Yes 20mg Take 20 mg [facility] E MAG 2-19 by mouth ity of TRIHYDRATE 15:44: once now. [place] (NEXIUM 48 Medical ORAL) [place] [address] 2017-07 Yes 12 ml BID [place] MG/ML ORAL 2-19 , per mom ity of SOLN 15:44: [address] 2017-07 Yes 20mg Take 20 mg [facility] E MAG 2-19 by mouth ity of TRIHYDRATE 15:44: once now. [place] (NEXIUM 48 Medical ORAL) [place] [address] 2018-1 Yes 12 ml BID [place] MG/ML ORAL 2-19 , per mom ity of SOLN 15:44: [address] ESOMEPRAZOL 2017-07 Yes 20mg Take 20 mg [facility] E MAG 2-19 by mouth ity of TRIHYDRATE 15:44: once now. [place] (NEXIUM 48 Medical ORAL) [place] [address] 2017-07 Yes 12 ml BID [place] MG/ML ORAL 2-19 , per mom ity of SOLN 15:44: [address] 2017-07 Yes 20mg Take 20 mg [facility] E MAG 2-19 by mouth ity of TRIHYDRATE 15:44: once now. [place] (NEXIUM 48 Medical ORAL) [place] [address] 2017-07 Yes 12 ml BID [place] MG/ML ORAL 2-19 , per mom ity of SOLN 15:44: [address] 2017-07 Yes 20mg Take 20 mg [facility] E MAG 2-19 by mouth ity of TRIHYDRATE 15:44: once now. [place] (NEXIUM 48 Medical ORAL) [place] [address] 2017-07 Yes 12 ml BID [place] MG/ML ORAL 2-19 , per mom ity of SOLN 15:44: [address] [facility] Yes 20mg Take 20 mg [facility] E MAG 2-19 by mouth ity of TRIHYDRATE 15:44: once now. [place] (NEXIUM 48 Medical ORAL) [place] [address] 2017-07 Yes 12 ml BID [place] MG/ML ORAL 2-19 , per mom ity of SOLN 15:44: [address] 2017-07 Yes 20mg Take 20 mg [facility] E MAG 2-19 by mouth ity of TRIHYDRATE 15:44: once now. [place] (NEXIUM 48 Medical ORAL) [place] [address] 2017-07 Yes 12 ml BID [place] MG/ML ORAL 2-19 , per mom ity of SOLN 15:44: [address] 2017-07 Yes 20mg Take 20 mg [facility] E MAG 2-19 by mouth ity of TRIHYDRATE 15:44: once now. [place] (NEXIUM 48 Medical ORAL) [place] [address] 2017-07 Yes 12 ml BID [place] MG/ML ORAL 2-19 , per mom ity of SOLN 15:44: [address] ESOMEPRAZOL 2017-07 Yes 20mg Take 20 mg [facility] E MAG 2-19 by mouth ity of TRIHYDRATE 15:44: once now. [place] (NEXIUM 48 Medical ORAL) [place] [address] 2017-07 Yes 12 ml BID [place] MG/ML ORAL 2-19 , per mom ity of SOLN 15:44: [address] 2017-07 Yes 20mg Take 20 mg [facility] E MAG 2-19 by mouth ity of TRIHYDRATE 15:44: once now. [place] (NEXIUM 48 Medical ORAL) [place] [address] 2017-07 Yes 12 ml BID [place] MG/ML ORAL 2-19 , per mom ity of SOLN 15:44: [address] 2017-07 Yes 20mg Take 20 mg [facility] E MAG 2-19 by mouth ity of TRIHYDRATE 15:44: once now. [place] (NEXIUM 48 Medical ORAL) [place] [address] 2017-07 Yes 12 ml BID [place] MG/ML ORAL 2-19 , per mom ity of SOLN 15:44: [address] [facility] Yes 20mg Take 20 mg [facility] E MAG 2-19 by mouth ity of TRIHYDRATE 15:44: once now. [place] (NEXIUM 48 Medical ORAL) [place] [address] 2017-07 Yes 12 ml BID [place] MG/ML ORAL 2-19 , per mom ity of SOLN 15:44: [address] 2017-07 Yes 20mg Take 20 mg [facility] E MAG 2-19 by mouth ity of TRIHYDRATE 15:44: once now. [place] (NEXIUM 48 Medical ORAL) [place] [address] 2017-07 Yes 12 ml BID [place] MG/ML ORAL 2-19 , per mom ity of SOLN 15:44: [address] 2017-07 Yes 20mg Take 20 mg [facility] E MAG 2-19 by mouth ity of TRIHYDRATE 15:44: once now. [place] (NEXIUM 48 Medical ORAL) [place] [address] 2017-07 Yes 12 ml BID [place] MG/ML ORAL 2-19 , per mom ity of SOLN 15:44: [address] ESOMEPRAZOL 2017-07 Yes 20mg Take 20 mg [facility] E MAG 2-19 by mouth ity of TRIHYDRATE 15:44: once now. [place] (NEXIUM 48 Medical ORAL) Branch [place] [address] 2017-07 Yes 12 ml BID [place] MG/ML ORAL 2-19 , per mom ity of SOLN 15:44: [address] ESOMEPRAZOL 2017-07 Yes 20mg Take 20 mg [facility] E MAG 2-19 by mouth ity of TRIHYDRATE 15:44: once now. [place] (NEXIUM 48 Medical ORAL) [place] [address] 2017-07 Yes 12 ml BID [place] MG/ML ORAL 2-19 , per mom ity of SOLN 15:44: [address] 2017-07 Yes 20mg Take 20 mg [facility] E MAG 2-19 by mouth ity of TRIHYDRATE 15:44: once now. [place] (NEXIUM 48 Medical ORAL) Branch DIASTAT Yes 10mg as Univers ACUDIAL 8-21 needed for ity of 5-7.5-10 MG 19:32: seizure [place] as RECTAL KIT 05 lasting Medica l greater Branch than 5 min IMITREX 5 Yes as needed Uni vers MG/ACTUATIO 8- for ity of N NASAL 19:32: migraines [address] Yes Apply to [place] ne 0.1% in 8-21 affected ity o f aquaphor 19:32: area(s). [place] (COMPOUNDED 05 Medical ) ointment Branch DIASTAT Yes 10mg as Univers ACUDIAL 8-21 needed for ity of 5-7.5-10 MG 19:32: seizure [place] RECTAL KIT 05 lasting Medica l greater Branch than 5 min IMITREX 5 Yes as needed Uni vers MG/ACTUATIO 8-21 for ity of N NASAL 19:32: migraines [address] Yes Apply to [place] ne 0.1% in 8-21 affected ity o f aquaphor 19:32: area(s). [place] (COMPOUNDED 05 Medical ) ointment Branch DIASTAT Yes 10mg as Univers ACUDIAL 8-21 needed for ity of 5-7.5-10 MG 19:32: seizure [place] RECTAL KIT 05 lasting Medica l greater Branch than 5 min IMITREX 5 Yes as needed Uni vers MG/ACTUATIO 8-21 for ity of N NASAL 19:32: migraines [address] Yes Apply to [place] ne 0.1% in 8-21 affected ity o f aquaphor 19:32: area(s). [place] (COMPOUNDED [address] [place] [address] ) ointment Branch DIASTAT Yes 10mg as Univers ACUDIAL 8-21 needed for ity of 5-7.5-10 MG 19:32: seizure [place] RECTAL KIT 05 lasting Medica l greater Branch than 5 min IMITREX 5 Yes as needed Uni vers MG/ACTUATIO 8-21 for ity of N NASAL 19:32: migraines [address] Yes Apply to [place] ne 0.1% in 8-21 affected ity o f aquaphor 19:32: area(s). [place] (COMPOUNDED [address] [place] [address] ) ointment Branch DIASTAT Yes 10mg as Univers ACUDIAL 8-21 needed for ity of 5-7.5-10 MG 19:32: seizure [place] RECTAL KIT 05 lasting Medica l greater Branch than 5 min IMITREX 5 0 Yes as needed Uni vers MG/ACTUATIO 8-21 for ity of N NASAL 19:32: migraines [address] Yes Apply to U nivers ne 0.1% in 8-21 affected ity o f aquaphor 19:32: area(s). [place] (COMPOUNDED Medical ) ointment Branch DIASTAT Yes 10mg as Univers ACUDIAL 8-21 needed for ity of 5-7.5-10 MG 19:32: seizure [place] RECTAL KIT 05 lasting Medica l greater Branch than 5 min IMITREX 5 Yes as needed Uni vers MG/ACTUATIO 8-21 for ity of N NASAL 19:32: migraines [address] Yes Apply to [place] ne 0.1% in 8- affected ity o f aquaphor 19:32: area(s). [place] ([address] ) ointment Branch DIASTAT Yes 10mg as Univers ACUDIAL 8-21 needed for ity of 5-7.5-10 MG 19:32: seizure [place] RECTAL KIT 05 lasting Medica l greater Branch than 5 min IMITREX 5 Yes as needed Uni vers MG/ACTUATIO 8-21 for ity of N NASAL 19:32: migraines [address] Yes Apply to [place] ne 0.1% in 8- affected ity o f aquaphor 19:32: area(s). [place] ([address] ) ointment [place] DIASTAT Yes 10mg as Univers ACUDIAL 8-21 needed for ity of 5-7.5-10 MG 19:32: seizure [place] RECTAL KIT 05 lasting Medica l greater Branch than 5 min IMITREX 5 Yes as needed Uni vers MG/ACTUATIO 8-21 for ity of N NASAL 19:32: migraines [address] Yes Apply to [place] ne 0.1% in 03-08 affected ity o f aquaphor 19:32: area(s). [place] (COMPOUNDED [address] [place] [address] ) ointment Branch DIASTAT Yes 10mg as [...] ity of N NASAL 19:32: migraines [address] IMITREX 5 Yes as needed Uni vers MG/ACTUATIO 8-21 for ity of N NASAL 19:32: migraines [address] Yes Apply to [place] ne 0.1% in 8-21 affected ity o f aquaphor 19:32: area(s). [place] (COMPOUNDED [address] [place] [address] ) ointment Branch DIASTAT Yes 10mg as Univers ACUDIAL 8-21 needed for ity of 5-7.5-10 MG 19:32: seizure [place] RECTAL KIT 05 lasting Medica l greater Branch than 5 min IMITREX 5 Yes as needed Uni vers MG/ACTUATIO 8-21 for ity of N NASAL 19:32: migraines [address] Yes Apply to [place] ne 0.1% in 8-21 affected ity o f aquaphor 19:32: area(s). [place] ([address] ) ointment [facility] Yes Apply to [place] ne 0.1% in 8-21 affected ity o f aquaphor 19:32: area(s). [place] (COMPOUNDED [address] [place] [address] ) ointment Branch DIAST Yes 10mg as Univers ACUDIAL 8-21 needed for ity of 5-7.5-10 MG 19:32: seizure [place] RECTAL KIT 05 lasting Medica l greater Branch than 5 min IMITREX 5 Yes as needed Uni vers MG/ACTUATIO 8-21 for ity of N NASAL 19:32: migraines [address] Yes Apply to [place] ne 0.1% in 8-21 affected ity o f aquaphor 19:32: area(s). [place] (COMPOUNDED Medical ) ointment Branch DIASTAT Yes 10mg as Univers ACUDIAL 8-21 needed for ity of 5-7.5-10 MG 19:32: seizure [place] RECTAL KIT 05 lasting Medica l greater Branch than 5 min IMITREX 5 Yes as needed Uni vers MG/ACTUATIO 8-21 for ity of N NASAL 19:32: migraines [address] Yes Apply to [place] ne 0.1% in 8-21 affected ity o f aquaphor 19:32: area(s). [place] (COMPOUNDED 05 Medical ) ointment Branch DIASTAT Yes 10mg as Univers ACUDIAL 8-21 needed for ity of 5-7.5-10 MG 19:32: seizure [place] as RECTAL KIT 05 lasting Medica l greater Branch than 5 min IMITREX 5 0 Yes as needed Uni vers MG/ACTUATIO 8-21 for ity of N NASAL 19:32: migraines [address] Yes Apply to [place] ne 0.1% in 8-21 affected ity o f aquaphor 19:32: area(s). [place] (COMPOUNDED Medical ) ointment Branch DIASTAT Yes 10mg as Univers ACUDIAL 8-21 needed for ity of 5-7.5-10 MG 19:32: seizure [place] RECTAL KIT 05 lasting Medica l greater Branch than 5 min IMITREX 5 Yes as needed Uni vers MG/ACTUATIO 8-21 for ity of N NASAL 19:32: migraines [address] Yes Apply to [place] ne 0.1% in 8-21 affected ity o f aquaphor 19:32: area(s). [place] (COMPOUNDED [address] [place] [address] ) ointment Branch DIASTAT Yes 10mg as Univers ACUDIAL 8-21 needed for ity of 5-7.5-10 MG 19:32: seizure [place] RECTAL KIT 05 lasting Medica l greater Branch than 5 min IMITREX 5 Yes as needed Uni vers MG/ACTUATIO 8-21 for ity of N NASAL 19:32: migraines [address] Yes Apply to [place] ne 0.1% in 8-21 affected ity o f aquaphor 19:32: area(s). [place] (COMPOUNDED Medical ) ointment Branch DIASTAT Yes 10mg as Univers ACUDIAL 8-21 needed for ity of 5-7.5-10 MG 19:32: seizure [place] RECTAL KIT 05 lasting Medica l greater Branch than 5 min IMITREX 5 Yes as needed Uni vers MG/ACTUATIO 8-21 for ity of N NASAL 19:32: migraines [address] Yes Apply to [place] ne 0.1% in 8-21 affected ity o f aquaphor 19:32: area(s). [place] (COMPOUNDED [address] [place] [address] ) ointment Branch DIASTAT Yes 10mg as Univers ACUDIAL 8-21 needed for ity of 5-7.5-10 MG 19:32: seizure [place] as RECTAL KIT 05 lasting Medica l greater Branch than 5 min IMITREX 5 Yes as needed Uni vers MG/ACTUATIO 8-21 for ity of N NASAL 19:32[facility] [address] [place] [address] Yes Apply to [place] ne 0.1% in 8- affected ity o f aquaphor 19:32: area(s). [place] (COMPOUNDED [address] [place] [address] ) ointment Branch DIASTAT Yes 10mg as Univers ACUDIAL 8-21 needed for ity of 5-7.5-10 MG 19:32: seizure [place] as RECTAL KIT 05 lasting Medica l greater Branch than 5 min IMITREX 5 Yes as needed Uni vers MG/ACTUATIO 8-21 for ity of N NASAL 19:32: [facility] [address] [place] [address] Yes Apply to [place] ne 0.1% in 8- affected ity o f aquaphor 19:32: area(s). [place] (COMPOUNDED Medical ) ointment Branch DIASTAT Yes 10mg as Univers ACUDIAL 8-21 needed for ity of 5-7.5-10 MG 19:32: seizure [place] as RECTAL KIT 05 lasting Medica l greater Branch than 5 min IMITREX 5 Yes as needed Uni vers MG/ACTUATIO 8-21 for ity of N NASAL 19:32: [facility] [address] [place] [address] Yes Apply to [place] ne 0.1% in 8-21 affected ity o f aquaphor 19:32: area(s). [place] (COMPOUNDED Medical ) ointment Branch DIASTAT Yes 10mg as Univers ACUDIAL 8-21 needed for ity of 5-7.5-10 MG 19:32: seizure [place] as RECTAL KIT 05 lasting Medica l greater Branch than 5 min IMITREX 5 Yes as needed Uni vers MG/ACTUATIO 8-21 for ity of N NASAL 19:32: migraines [address] DIAST Yes 10mg as Univers ACUDIAL 8-21 needed for ity of 5-7.5-10 MG 19:32: seizure [place] as RECTAL KIT 05 lasting Medica l greater Branch than 5 min IMITREX 5 Yes as needed Uni vers MG/ACTUATIO 8-21 for ity of N NASAL 19:32: migraines [address] Yes Apply to [place] 0.1% in 8-21 affected ity o f aquaphor 19:32: area(s). [place] ([facility] ) ointment [facility] Yes Apply to Un [place] 0.1% in 8-21 affected ity o f aquaphor 19:32: area(s). [place] (COMPOUNDED [address] [place] [address] ) ointment [place] DIAST Yes 10mg as Univers ACUDIAL 8-21 needed for ity of 5-7.5-10 MG 19:32: seizure [place] as RECTAL KIT 05 lasting Medica l greater Branch than 5 min IMITREX 5 Yes as needed Uni vers MG/ACTUATIO 8-21 for ity of N NASAL 19:32: migraines [address] Yes Apply to Un [place] ne 0.1% in 8-21 affected ity o f aquaphor 19:32: area(s). [place] ([facility] Medical ) ointment Branch DIASTAT Yes 10mg as Univers ACUDIAL 8-21 needed for ity of 5-7.5-10 MG 19:32: seizure [place] as RECTAL KIT 05 lasting Medica l greater Branch than 5 min IMITREX 5 Yes as needed Uni vers MG/ACTUATIO 8-21 for ity of N NASAL 19:32: migraines [address] Yes Apply to [place] 0.1% in 8-21 affected ity o f aquaphor 19:32: area(s). [place] ([facility] ) ointment Branch DIASTAT Yes 10mg as Univers ACUDIAL 8-21 needed for ity of 5-7.5-10 MG 19:32: seizure [place] as RECTAL KIT 05 lasting Medica l greater Branch than 5 min IMITREX 5 0 Yes as needed Uni vers MG/ACTUATIO 8-21 for ity of N NASAL 19:32: migraines [address] Yes Apply to [place] 0.1% in 8-21 affected ity o f aquaphor 19:32: area(s). [place] ([facility] ) ointment Branch DIASTAT Yes 10mg as Univers ACUDIAL 8-21 needed for ity of 5-7.5-10 MG 19:32: seizure [place] as RECTAL KIT 05 lasting Medica l greater Branch than 5 min IMITREX 5 Yes as needed Uni vers MG/ACTUATIO 8-21 for ity of N NASAL 19:32: migraines [address] Yes Apply to [place] 0.1% in 8-21 affected ity o f aquaphor 19:32: area(s). [place] ([facility] ) ointment Branch DIASTAT Yes 10mg as Univers ACUDIAL 8-21 needed for ity of 5-7.5-10 MG 19:32: seizure [place] as RECTAL KIT 05 lasting Medica l greater Branch than 5 min IMITREX 5 Yes as needed Uni vers MG/ACTUATIO 8-21 for ity of N NASAL 19:32: migraines [address] Yes Apply to [place] 0.1% in 8-21 affected ity o f aquaphor 19:32: area(s). [place] ([facility] ) ointment Branch DIASTAT Yes 10mg as [facility] ACUDIAL 8-21 needed for ity of 5-7.5-10 MG 19:32: seizure [place] as RECTAL KIT 05 lasting Medica l greater Branch than 5 min IMITREX 5 Yes as needed Uni vers MG/ACTUATIO 8-21 for ity of N NASAL 19:32: migraines [address] Yes Apply to [place] 0.1% in 8-21 affected ity o f aquaphor 19:32: area(s). [place] ([facility] ) ointment Branch DIASTAT Yes 10mg as [facility] ACUDIAL 8-21 needed for ity of 5-7.5-10 MG 14:32: seizure [place] as RECTAL KIT 05 lasting Medica l greater Branch than 5 min IMITREX 5 Yes as needed Uni vers MG/ACTUATIO 8-21 for ity of N NASAL 14:32: [facility] [address] [place] [address] Yes Apply to [place] ne 0.1% in 8- affected ity o f aquaphor 14:32: area(s). [place] ([facility] ) ointment Branch DIASTAT Yes 10mg as Univers ACUDIAL 8-21 needed for ity of 5-7.5-10 MG 14:32: seizure [place] as RECTAL KIT 05 lasting Medica l greater Branch than 5 min IMITREX 5 Yes as needed Uni vers MG/ACTUATIO 8-21 for ity of N NASAL 14:32: migraines [address] Yes Apply to [place] ne 0.1% in - affected ity o f aquaphor 14:32: area(s). [place] ([facility] ) ointment Branch DIASTAT Yes 10mg as Univers ACUDIAL 8-21 needed for ity of 5-7.5-10 MG 14:32: seizure [place] as RECTAL KIT 05 lasting Medica l greater Branch than 5 min IMITREX 5 Yes as needed Uni vers MG/ACTUATIO 8-21 for ity of N NASAL 14:32: [facility] [address] [place] [address] Yes Apply to [place] ne 0.1% in 8- affected ity o f aquaphor 14:32: area(s). [place] ([facility] ) ointment Branch DIASTAT Yes 10mg as Univers ACUDIAL 8-21 needed for ity of 5-7.5-10 MG 14:32: seizure [place] as RECTAL KIT 05 lasting Medica l greater Branch than 5 min IMITREX 5 Yes as needed Uni vers MG/ACTUATIO 8-21 for ity of N NASAL 14:32: migraines [address] Yes Apply to [place] ne 0.1% in 8-21 affected ity o f aquaphor 14:32: area(s). [place] ([address] ) ointment Branch DIASTAT Yes 10mg as Univers ACUDIAL 8-21 needed for ity of 5-7.5-10 MG 14:32: seizure [place] as RECTAL KIT 05 lasting Medica l greater Branch than 5 min IMITREX 5 Yes as needed Uni vers MG/ACTUATIO 8-21 for ity of N NASAL 14:32: migraines [address] Yes Apply to [place] 0.1% in 8- affected ity o f aquaphor 14:32: area(s). [place] ([address] ) ointment [place] DIASTAT Yes 10mg as Univers ACUDIAL 8-21 needed for ity of 5-7.5-10 MG 14:32: seizure [place] as RECTAL KIT 05 lasting Medica l greater Branch than 5 min IMITREX 5 Yes as needed Uni vers MG/ACTUATIO 8-21 for ity of N NASAL 14:32: migraines [address] Yes Apply to [place] 0.1% in 8-21 affected ity o f aquaphor 14:32: area(s). [place] (COMPOUNDED [address] [place] [address] ) ointment Branch DIASTAT Yes 10mg as Univers ACUDIAL 8-21 needed for ity of 5-7.5-10 MG 14:32: seizure [place] as RECTAL KIT 05 lasting Medica l greater Branch than 5 min IMITREX 5 Yes as needed Uni vers MG/ACTUATIO 8-21 for ity of N NASAL 14:32: migraines [address] Yes Apply to [place] 0.1% in 8-21 affected ity o f aquaphor 14:32: area(s). [place] (COMPOUNDED [address] [place] [address] ) ointment Branch DIASTAT Yes 10mg as Univers ACUDIAL 8-21 needed for ity of 5-7.5-10 MG 14:32: seizure [place] as RECTAL KIT 05 lasting Medica l greater Branch than 5 min IMITREX 5 Yes as needed Uni vers MG/ACTUATIO 8-21 for ity of N NASAL 14:32: migraines [address] Yes Apply to [place] 0.1% in 8-21 affected ity o f aquaphor 14:32: area(s). [place] ([facility] ) ointment Branch DIASTAT Yes 10mg as [facility] ACUDIAL 8-21 needed for ity of 5-7.5-10 MG 14:32: seizure [place] as RECTAL KIT 05 lasting Medica l greater Branch than 5 min IMITREX 5 Yes as needed Uni vers MG/ACTUATIO 8-21 for ity of N NASAL 14:32: migraines [address] Yes Apply to [place] 0.1% in 8- affected ity o f aquaphor 14:32: area(s). [place] (COMPOUNDED [address] [place] [address] ) ointment Branch DIASTAT Yes 10mg as [facility] ACUDIAL 8-21 needed for ity of 5-7.5-10 MG 14:32: seizure [place] as RECTAL KIT 05 lasting Medica l greater Branch than 5 min IMITREX 5 Yes as needed Uni vers MG/ACTUATIO 8-21 for ity of N NASAL 14:32: migraines [address] Yes Apply to [place] 0.1% in 8-21 affected ity o f aquaphor 14:32: area(s). [place] ([facility] ) ointment Branch DIASTAT Yes 10mg as Univers ACUDIAL 8-21 needed for ity of 5-7.5-10 MG 14:32: seizure [place] as RECTAL KIT 05 lasting Medica l greater Branch than 5 min IMITREX 5 Yes as needed Uni vers MG/ACTUATIO 8-21 for ity of N NASAL 14:32: migraines [address] Yes Apply to [place] 0.1% in 8- affected ity o f aquaphor 14:32: area(s). [place] ([facility] ) ointment Branch DIASTAT Yes 10mg as Univers ACUDIAL 8-21 needed for ity of 5-7.5-10 MG 14:32: seizure [place] as RECTAL KIT 05 lasting Medica l greater Branch than 5 min IMITREX 5 Yes as needed Uni vers MG/ACTUATIO 8-21 for ity of N NASAL 14:32: migraines [place] [facility] [address] [place] [address] Yes Apply to [place] 0.1% in 8 affected ity o f aquaphor 14:32: area(s). [place] (COMPOUNDED [address] [place] [address] ) ointment Branch DIASTAT Yes 10mg as Univers ACUDIAL 8-21 needed for ity of 5-7.5-10 MG 14:32: seizure [place] as RECTAL KIT 05 lasting Medica l greater Branch than 5 min IMITREX 5 Yes as needed Uni vers MG/ACTUATIO 8-21 for ity of N NASAL 14:32: [facility] [address] [place] [address] Yes Apply to [place] 0.1% in 03-08 affected ity o f aquaphor 14:32: area(s). [place] ([facility] ) ointment Branch DIASTAT Yes 10mg as Univers ACUDIAL 8-21 needed for ity of 5-7.5-10 MG 14:32: seizure [place] as RECTAL KIT 05 lasting Medica l greater Branch than 5 min IMITREX 5 Yes as needed Uni vers MG/ACTUATIO 8-21 for ity of N NASAL 14:32: [facility] [address] [place] [address] Yes Apply to [place] 0.1% in 8 affected ity o f aquaphor 14:32: area(s). [place] ([facility] ) ointment Branch DIASTAT Yes 10mg as Univers ACUDIAL 8-21 needed for ity of 5-7.5-10 MG 14:32: seizure [place] as RECTAL KIT 05 lasting Medica l greater Branch than 5 min IMITREX 5 Yes as needed Uni vers MG/ACTUATIO 8-21 for ity of N NASAL 14:32: migraines [address] Yes Apply to [place] 0.1% in 8-21 affected ity o f aquaphor 14:32: area(s). [place] (COMPOUNDED [address] [place] [address] ) ointment Branch DIASTAT Yes 10mg as Univers ACUDIAL 8-21 needed for ity of 5-7.5-10 MG 14:32: seizure [place] as RECTAL KIT 05 lasting Medica l greater Branch than 5 min IMITREX 5 Yes as needed Uni vers MG/ACTUATIO 8-21 for ity of N NASAL 14:32: migraines [address] Yes Apply to [place] 0.1% in 8- affected ity o f aquaphor 14:32: area(s). [place] ([address] ) ointment Branch DIASTAT Yes 10mg as Univers ACUDIAL 8-21 needed for ity of 5-7.5-10 MG 14:32: seizure [place] as RECTAL KIT 05 lasting Medica l greater Branch than 5 min IMITREX 5 Yes as needed Uni vers MG/ACTUATIO 8-21 for ity of N NASAL 14:32: migraines [address] Yes Apply to [place] 0.1% in 8-21 affected ity o f aquaphor 14:32: area(s). [place] ([facility] ) ointment Branch DIASTAT Yes 10mg as Univers ACUDIAL 8-21 needed for ity of 5-7.5-10 MG 14:32: seizure [place] as RECTAL KIT 05 lasting Medica l greater Branch than 5 min IMITREX 5 Yes as needed Uni vers MG/ACTUATIO 8-21 for ity of N NASAL 14:32: migraines [address] Yes Apply to [place] 0.1% in 8-21 affected ity o f aquaphor 14:32: area(s). [place] ([facility] ) ointment Branch DIASTAT Yes 10mg as Univers ACUDIAL 8-21 needed for ity of 5-7.5-10 MG 14:32: seizure [place] as RECTAL KIT 05 lasting Medica l greater Branch than 5 min IMITREX 5 Yes as needed Uni vers MG/ACTUATIO 8-21 for ity of N NASAL 14:32: migraines [address] Yes Apply to [place] 0.1% in 8-21 affected ity o f aquaphor 14:32: area(s). [place] ([facility] ) ointment Branch DIASTAT Yes 10mg as Univers ACUDIAL 8-21 needed for ity of 5-7.5-10 MG 14:32: seizure [place] as RECTAL KIT 05 lasting Medica l greater Branch than 5 min IMITREX 5 Yes as needed Uni vers MG/ACTUATIO 8-21 for ity of N NASAL 14:32: migraines [address] Yes Apply to [place] 0.1% in 8- affected ity o f aquaphor 14:32: area(s). [place] ([facility] Medical ) ointment [place] DIASTAT Yes 10mg as Univers ACUDIAL 8-21 needed for ity of 5-7.5-10 MG 14:32: seizure [place] as RECTAL KIT 05 lasting Medica l greater Branch than 5 min IMITREX 5 0 Yes as needed Uni vers MG/ACTUATIO 8-21 for ity of N NASAL 14:32: migraines [address] Yes Apply to [place] 0.1% in 8-21 affected ity o f aquaphor 14:32: area(s). [place] ([facility] 05 Medical ) ointment Branch DIASTAT Yes 10mg as Univers ACUDIAL 8-21 needed for ity of 5-7.5-10 MG 14:32: seizure [place] as RECTAL KIT 05 lasting Medica l greater Branch than 5 min IMITREX 5 0 Yes as needed Uni vers MG/ACTUATIO 8-21 for ity of N NASAL 14:32: migraines [address] Yes Apply to [place] 0.1% in 8-21 affected ity o f aquaphor 14:32: area(s). [place] ([facility] 05 Medical ) ointment Branch IMITREX 5 0 Yes as needed Uni vers MG/ACTUATIO 8-21 for ity of N NASAL 14:32: migraines [place] [address] Medical Branch IMITREX 5 Yes as needed Uni vers MG/ACTUATIO 8-21 for ity of N NASAL 14:32: migraines [place] [address] Medical Branch IMITREX 5 Yes as needed Uni vers MG/ACTUATIO 8-21 for ity of N NASAL 14:32: migraines [place] [address] Medical Branch IMITREX 5 Yes as needed Uni vers MG/ACTUATIO 8-21 for ity of N NASAL 14:32: migraines [place] [address] Medical Branch IMITREX 5 Yes as needed Uni vers MG/ACTUATIO 8-21 for ity of N NASAL 14:32: migraines [place] [address] Medical Branch IMITREX 5 Yes as needed Uni vers MG/ACTUATIO 8-21 for ity of N NASAL 14:32: migraines [place] [address] Medical Branch IMITREX 5 0 Yes as needed Uni vers MG/ACTUATIO 8-21 for ity of N NASAL 14:32: migraines [place] [address] Medical Branch IMITREX 5 0 Yes as needed Uni vers MG/ACTUATIO 8-21 for ity of N NASAL 14:32: migraines [address] Branch IMITREX 5 Yes as needed Uni vers MG/ACTUATIO 8-21 for ity of N NASAL 14:32: migraines [place] [address] Medical Branch IMITREX 5 Yes as needed Uni vers MG/ACTUATIO 8-21 for ity of N NASAL 14:32: migraines [place] [address] Medical Branch IMITREX 5 0 Yes as needed Uni vers MG/ACTUATIO 8-21 for ity of N NASAL 14:32: migraines [address] Branch IMITREX 5 0 Yes as needed Uni vers MG/ACTUATIO 8-21 for ity of N NASAL 14:32: migraines [address] Branch IMITREX 5 2018-0 Yes as needed Uni vers MG/ACTUATIO 8-21 for ity of N NASAL 14:32: migraines [place] [address] Medical Branch IMITREX 5 2018-0 Yes as needed Uni vers MG/ACTUATIO 8-21 for ity of N NASAL 14:32: migraines [place] [address] Medical Branch IMITREX 5 2018-0 Yes as needed Uni vers MG/ACTUATIO 8-21 for ity of N NASAL 14:32: migraines [place] [address] Medical Branch IMITREX 5 2018-0 Yes as needed Uni vers MG/ACTUATIO 8-21 for ity of N NASAL 14:32: migraines [place] [address] Medical Branch IMITREX 5 2018-0 Yes as needed Uni vers MG/ACTUATIO 8-21 for ity of N NASAL 14:32: migraines [place] [address] Medical Branch IMITREX 5 2017-0 Yes as needed Uni vers MG/ACTUATIO 8-21 for ity of N NASAL 14:32: migraines [place] [address] Medical Branch IMITREX 5 2017-0 Yes as needed Uni vers MG/ACTUATIO 8-21 for ity of N NASAL 14:32: migraines [place] [address] Medical Branch IMITREX 5 2017-0 Yes as needed Uni vers MG/ACTUATIO 8-21 for ity of N NASAL 14:32: migraines [place] [address] Medical Branch IMITREX 5 2017-0 Yes as needed Uni vers MG/ACTUATIO 8-21 for ity of N NASAL 14:32: migraines [place] [address] Medical Branch IMITREX 5 2017-0 Yes as needed Uni vers MG/ACTUATIO 8-21 for ity of N NASAL 14:32: migraines [place] [address] Medical Branch IMITREX 5 2018-0 Yes as needed Uni vers MG/ACTUATIO 8-21 for ity of N NASAL 14:32: migraines [place] [address] Medical Branch IMITREX 5 2018-0 Yes as needed Uni vers MG/ACTUATIO 8-21 for ity of N NASAL 14:32: migraines [place] [address] Medical Branch IMITREX 5 2018-0 Yes as needed Uni vers MG/ACTUATIO 8-21 for ity of N NASAL 14:32: migraines [place] [address] Medical Branch IMITREX 5 2017-0 Yes as needed Uni vers MG/ACTUATIO 8-21 for ity of N NASAL 14:32: migraines [address] Branch IMITREX 5 0 Yes as needed Uni vers MG/ACTUATIO 8-21 for ity of N NASAL 14:32: migraines [address] Branch IMITREX 5 0 Yes as needed Uni vers MG/ACTUATIO 8-21 for ity of N NASAL 14:32: migraines [address] IMITREX 5 0 Yes as needed Uni vers MG/ACTUATIO 8-21 for ity of N NASAL 14:32: migraines [address] Branch IMITREX 5 0 Yes as needed Uni vers MG/ACTUATIO 8-21 for ity of N NASAL 14:32: migraines [address] Branch IMITREX 5 0 Yes as needed Uni vers MG/ACTUATIO 8-21 for ity of N NASAL 14:32: migraines [address] IMITREX 5 0 Yes as needed Uni vers MG/ACTUATIO 8-21 for ity of N NASAL 14:32: migraines [address] Branch IMITREX 5 0 Yes as needed Uni vers MG/ACTUATIO 8-21 for ity of N NASAL 14:32: migraines [address] Branch IMITREX 5 0 Yes as needed Uni vers MG/ACTUATIO 8-21 for ity of N NASAL 14:32: migraines [address] Branch IMITREX 5 0 Yes as needed Uni vers MG/ACTUATIO 8-21 for ity of N NASAL 14:32: migraines [address] Branch IMITREX 5 0 Yes as needed Uni vers MG/ACTUATIO 8-21 for ity of N NASAL 14:32: migraines [place] [address] Medical Branch IMITREX 5 0 Yes as needed Uni vers MG/ACTUATIO 8-21 for ity of N NASAL 14:32: migraines [address] Branch DIASTAT 0 Yes 10mg as Univers ACUDIAL 8-21 needed for ity of 5-7.5-10 MG 14:32: seizure [place] as RECTAL KIT 05 lasting Medica l greater Branch than 5 min IMITREX 5 0 Yes as needed Uni vers MG/ACTUATIO 03-08 [...] 00 daily. Medical Branch fluticasone 2019- No [id number] 1{puff} Inhale 1 Univers (FLOVENT 17 07-01 Puff 2 ity of HFA) 110 00:00: 00:00 (two) [place] mcg/actuati 00 :00 times Medical on inhaler daily. Branch levalbutero 2018- No 2{puff} Inhale 2 Univers l (XOPENEX 17 11-06 Puffs ity of HFA) 45 00:00: [...] Medical times Branch daily. cloNIDine 2018- No [id number] .1mg Take 1-2 Univers HCl 6-26 10-15 [...] 5-22 by mouth. ity of tablet 00:00: 00 Medical Branch amitriptyli Yes 10mg Take 10 mg Univers ne 10 mg 5-22 by mouth. ity of tablet 00:00: Medical Branch amitriptyli Yes 10mg Take 10 mg Univers ne 10 mg 5-22 by mouth. ity of tablet 00:00: [place] 00 Medical Branch amitriptyli 2018-0 Yes 10mg Take 10 mg Univers ne 10 mg 5-22 by mouth. ity of tablet 00:00: [place] [facility] amitriptyli 2018-0 Yes 10mg Take 10 mg Univers ne 10 mg 5-22 by mouth. ity of tablet 00:00: [place] [facility] amitriptyli 2018-0 Yes 10mg Take 10 mg Univers ne 10 mg 5-22 by mouth. ity of tablet 00:00: [place] [facility] amitriptyli 2018-0 Yes 10mg Take 10 mg Univers ne 10 mg 5-22 by mouth. ity of tablet 00:00: [place] [facility] amitriptyli 2018-0 Yes 10mg Take 10 mg Univers ne 10 mg 5-22 by mouth. ity of tablet 00:00: [place] [facility] amitriptyli 2018-0 Yes 10mg Take 10 mg Univers ne 10 mg 5-22 by mouth. ity of tablet 00:00: [place] [facility] amitriptyli 2018-0 Yes 10mg Take 10 mg Univers ne 10 mg 5-22 by mouth. ity of tablet 00:00: [place] [facility] amitriptyli 2018-0 Yes 10mg Take 10 mg Univers ne 10 mg 5-22 by mouth. ity of tablet 00:00: [place] [facility] amitriptyli 2018-0 Yes 10mg Take 10 mg Univers ne 10 mg 5-22 by mouth. ity of tablet 00:00: [place] [facility] amitriptyli 2018-0 Yes 10mg Take 10 mg Univers ne 10 mg 5-22 by mouth. ity of tablet 00:00: [place] [facility] amitriptyli 2018-0 Yes 10mg Take 10 mg Univers ne 10 mg 5-22 by mouth. ity of tablet 00:00: [place] [facility] amitriptyli 2018-0 Yes 10mg Take 10 mg Univers ne 10 mg 5-22 by mouth. ity of tablet 00:00: [place] [facility] amitriptyli 2018-0 Yes 10mg Take 10 mg Univers ne 10 mg 5-22 by mouth. ity of tablet 00:00: [address] amitriptyli 2018-0 Yes 10mg Take 10 mg Univers ne 10 mg 5-22 by mouth. ity of tablet 00:00: [address] amitriptyli 2018-0 Yes 10mg Take 10 mg Univers ne 10 mg 5-22 by mouth. ity of tablet 00:00: [place] [facility] amitriptyli 2018-0 Yes 10mg Take 10 mg Univers ne 10 mg 5-22 by mouth. ity of tablet 00:00: [place] [facility] amitriptyli 2018-0 Yes 10mg Take 10 mg Univers ne 10 mg 5-22 by mouth. ity of tablet 00:00: [place] [facility] amitriptyli 2018-0 Yes 10mg Take 10 mg Univers ne 10 mg 5-22 by mouth. ity of tablet 00:00: [place] [facility] amitriptyli 2018-0 Yes 10mg Take 10 mg Univers ne 10 mg 5-22 by mouth. ity of tablet 00:00: [place] [facility] amitriptyli 2018-0 Yes 10mg Take 10 mg Univers ne 10 mg 5-22 by mouth. ity of tablet 00:00: [address] amitriptyli 2018-0 Yes 10mg Take 10 mg Univers ne 10 mg 5-22 by mouth. ity of tablet 00:00: [address] amitriptyli 2018-0 Yes 10mg Take 10 mg Univers ne 10 mg 5-22 by mouth. ity of tablet 00:00: [place] [facility] amitriptyli 2018-0 Yes 10mg Take 10 mg Univers ne 10 mg 5-22 by mouth. ity of tablet 00:00: [address] amitriptyli 2018-0 Yes 10mg Take 10 mg Univers ne 10 mg 5-22 by mouth. ity of tablet 00:00: [address] amitriptyli 2018-0 Yes 10mg Take 10 mg Univers ne 10 mg 5-22 by mouth. ity of tablet 00:00: [address] amitriptyli 2018-0 Yes 10mg Take 10 mg Univers ne 10 mg 5-22 by mouth. ity of tablet 00:00: [address] amitriptyli 2018-0 Yes 10mg Take 10 mg Univers ne 10 mg 5-22 by mouth. ity of tablet 00:00: [address] amitriptyli 2018-0 Yes 10mg Take 10 mg Univers ne 10 mg 5-22 by mouth. ity of tablet 00:00: [place] [facility] amitriptyli 2018-0 Yes 10mg Take 10 mg Univers ne 10 mg 5-22 by mouth. ity of tablet 00:00: [place] [facility] amitriptyli 2018-0 Yes 10mg Take 10 mg Univers ne 10 mg 5-22 by mouth. ity of tablet 00:00: [place] [facility] amitriptyli 2018-0 Yes 10mg Take 10 mg Univers ne 10 mg 5-22 by mouth. ity of tablet 00:00: [place] [facility] amitriptyli 2018-0 Yes 10mg Take 10 mg Univers ne 10 mg 5-22 by mouth. ity of tablet 00:00: [place] [facility] amitriptyli 2018-0 Yes 10mg Take 10 mg Univers ne 10 mg 5-22 by mouth. ity of tablet 00:00: [place] [facility] amitriptyli 2018-0 Yes 10mg Take 10 mg Univers ne 10 mg 5-22 by mouth. ity of tablet 00:00: [place] [facility] amitriptyli 2018-0 Yes 10mg Take 10 mg Univers ne 10 mg 5-22 by mouth. ity of tablet 00:00: [place] [facility] amitriptyli 2018-0 Yes 10mg Take 10 mg Univers ne 10 mg 5-22 by mouth. ity of tablet 00:00: [place] [facility] amitriptyli 2018-0 Yes 10mg Take 10 mg Univers ne 10 mg 5-22 by mouth. ity of tablet 00:00: [place] [facility] amitriptyli 2018-0 Yes 10mg Take 10 mg Univers ne 10 mg 5-22 by mouth. ity of tablet 00:00: [place] [facility] amitriptyli 2018-0 Yes 10mg Take 10 mg Univers ne 10 mg 5-22 by mouth. ity of tablet 00:00: [place] [facility] amitriptyli 2018-0 Yes 10mg Take 10 mg Univers ne 10 mg 5-22 by mouth. ity of tablet 00:00: [place] [facility] amitriptyli 2018-0 Yes 10mg Take 10 mg Univers ne 10 mg 5-22 by mouth. ity of tablet 00:00: [place] [facility] amitriptyli 2018-0 Yes 10mg Take 10 mg Univers ne 10 mg 5-22 by mouth. ity of tablet 00:00: [place] [facility] amitriptyli Yes 10mg Take 10 mg Univers ne 10 mg 5-22 by mouth. ity of tablet 00:00: [place] [facility] Branch amitriptyli Yes 10mg Take 10 mg Univers ne 10 mg 5-22 by mouth. ity of tablet 00:00: [place] [facility] Branch amitriptyli Yes 10mg Take 10 mg Univers ne 10 mg 5-22 by mouth. ity of tablet 00:00: [place] [facility] amitriptyli Yes 10mg Take 10 mg Univers ne 10 mg 5-22 by mouth. ity of tablet 00:00: [address] amitriptyli 2017-2022- No 10mg Take 10 mg Univers ne 10 mg -08-18 by mouth. ity o f tablet 00:00: 00:00 [place] 00 :00 [facility] amitriptyli 2017-2022- No 10mg Take 10 mg Univers ne 10 mg -08-18 by mouth. ity o f tablet 00:00: 00:00 [place] 00 :00 [facility] amitriptyli 2022- No 10mg Take 10 mg Univers ne 10 mg 12-07 by mouth. ity o f tablet 00:00: 00:00 [place] 00 :00 [facility] amitriptyli 0 2022- No 10mg Take 10 mg Univers ne 10 mg 12-07 by mouth. ity o f tablet 00:00: 00:00 [place] 00 :00 Medical Branch amphetamine 2019- No [...] 00 :00 times Medical daily. Branch busPIRone 2018-0 2018- No 15mg Take 1 Unive rs 15 mg 09-08 tablet by ity of tablet 00:00: 00:00 mouth 2 [place] 00 :00 (two) Medical times Branch daily. risperiDONE 2014- Yes .5mg Take 0.5 [place] 0.5 mg 0-15 mg by ity of tablet 00:00: mouth. [address] risperiDONE 2014- Yes .5mg Take 0.5 [place] 0.5 mg 0-15 mg by ity of tablet 00:00: mouth. [address] risperiDONE 2014- Yes .5mg Take 0.5 [place] 0.5 mg 0-15 mg by ity of tablet 00:00: mouth. [address] risperiDONE 2014-07 Yes .5mg Take 0.5 [place] 0.5 mg 0-15 mg by ity of tablet 00:00: mouth. [address] risperiDONE 2014-07 Yes .5mg Take 0.5 [place] 0.5 mg 0-15 mg by ity of tablet 00:00: mouth. [address] risperiDONE 2014-07 Yes .5mg Take 0.5 [place] 0.5 mg 0-15 mg by ity of tablet 00:00: mouth. [address] risperiDONE 2014-07 Yes .5mg Take 0.5 [place] 0.5 mg 0-15 mg by ity of tablet 00:00: mouth. [address] risperiDONE 2014-07 Yes .5mg Take 0.5 [place] 0.5 mg 0-15 mg by ity of tablet 00:00: mouth. [address] risperiDONE 2014- Yes .5mg Take 0.5 [place] 0.5 mg 0-15 mg by ity of tablet 00:00: mouth. [address] risperiDONE 2014- Yes .5mg Take 0.5 [place] 0.5 mg 0-15 mg by [facility] of tablet 00:00: mouth. [address] risperiDONE 2014- Yes .5mg Take 0.5 [place] 0.5 mg 0-15 mg by ity of tablet 00:00: mouth. [address] risperiDONE 2014-1 Yes .5mg Take 0.5 [place] 0.5 mg 0-15 mg by ity of tablet 00:00: mouth. [address] risperiDONE 2014-07 Yes .5mg Take 0.5 [place] 0.5 mg 0-15 mg by ity of tablet 00:00: mouth. [address] risperiDONE 2014-07 Yes .5mg Take 0.5 [place] 0.5 mg 0-15 mg by ity of tablet 00:00: mouth. [address] risperiDONE 2014-07 Yes .5mg Take 0.5 [place] 0.5 mg 0-15 mg by ity of tablet 00:00: mouth. [address] risperiDONE 2014-07 Yes .5mg Take 0.5 [place] 0.5 mg 0-15 mg by ity of tablet 00:00: mouth. [address] risperiDONE 2014-07 Yes .5mg Take 0.5 [place] 0.5 mg 0-15 mg by ity of tablet 00:00: mouth. [address] risperiDONE 2014-07 Yes .5mg Take 0.5 [place] 0.5 mg 0-15 mg by ity of tablet 00:00: mouth. [address] risperiDONE 2014-07 Yes .5mg Take 0.5 [place] 0.5 mg 0-15 mg by it[facility] of tablet 00:00: mouth. [address] risperiDONE 2014-07 Yes .5mg Take 0.5 [place] 0.5 mg 0-15 mg by ity of tablet 00:00: mouth. [address] risperiDONE 2014-07 Yes .5mg Take 0.5 [place] 0.5 mg 0-15 mg by ity of tablet 00:00: mouth. [address] risperiDONE 2014-07 Yes .5mg Take 0.5 [place] 0.5 mg 0-15 mg by ity of tablet 00:00: mouth. [address] risperiDONE 2014-07 Yes .5mg Take 0.5 [place] 0.5 mg 0-15 mg by [facility] of tablet 00:00: mouth. [address] risperiDONE 2014-07 Yes .5mg Take 0.5 [place] 0.5 mg 0-15 mg by [facility]y of tablet 00:00: mouth. [address] risperiDONE 2014-07 Yes .5mg Take 0.5 [place] 0.5 mg 0-15 mg by [facility] of tablet 00:00: mouth. [address] risperiDONE 2014-07 Yes .5mg Take 0.5 [place] 0.5 mg 0-15 mg by ity of tablet 00:00: mouth. [address] risperiDONE 2014-07 Yes .5mg Take 0.5 [place] 0.5 mg 0-15 mg by ity of tablet 00:00: mouth. [address] risperiDONE 2014-07 Yes .5mg Take 0.5 [place] 0.5 mg 0-15 mg by ity of tablet 00:00: mouth. [address] risperiDONE 2014-07 Yes .5mg Take 0.5 [place] 0.5 mg 0-15 mg by ity of tablet 00:00: mouth. [address] risperiDONE 2014-07 Yes .5mg Take 0.5 [place] 0.5 mg 0-15 mg by ity of tablet 00:00: mouth. [address] risperiDONE 2014-07 Yes .5mg Take 0.5 [place] 0.5 mg 0-15 mg by [facility] of tablet 00:00: mouth. [address] risperiDONE 2014-07 Yes .5mg Take 0.5 [place] 0.5 mg 0-15 mg by [facility] of tablet 00:00: mouth. [address] risperiDONE 2014-07 Yes .5mg Take 0.5 [place] 0.5 mg 0-15 mg by ity of tablet 00:00: mouth. [address] risperiDONE 2014-07 Yes .5mg Take 0.5 [place] 0.5 mg 0-15 mg by [facility]y of tablet 00:00: mouth. [address] risperiDONE 2014-07 Yes .5mg Take 0.5 [place] 0.5 mg 0-15 mg by ity of tablet 00:00: mouth. [address] risperiDONE 2014-07 Yes .5mg Take 0.5 [place] 0.5 mg 0-15 mg by ity of tablet 00:00: mouth. [address] risperiDONE 2014-07 Yes .5mg Take 0.5 [place] 0.5 mg 0-15 mg by ity of tablet 00:00: mouth. [address] risperiDONE 2014-07 Yes .5mg Take 0.5 [place] 0.5 mg 0-15 mg by ity of tablet 00:00: mouth. [address] risperiDONE 2014-07 Yes .5mg Take 0.5 [place] 0.5 mg 0-15 mg by ity of tablet 00:00: mouth. [address] risperiDONE 2014-07 Yes .5mg Take 0.5 [place] 0.5 mg 0-15 mg by ity of tablet 00:00: mouth. [address] risperiDONE 2014-07 Yes .5mg Take 0.5 [place] 0.5 mg 0-15 mg by ity of tablet 00:00: mouth. [address] risperiDONE 2014-07 Yes .5mg Take 0.5 [place] 0.5 mg 0-15 mg by [facility] of tablet 00:00: mouth. [address] risperiDONE 2014-07 Yes .5mg Take 0.5 [place] 0.5 mg 0-15 mg by [facility]y of tablet 00:00: mouth. [address] risperiDONE 2014-07 Yes .5mg Take 0.5 [place] 0.5 mg 0-15 mg by [facility]y of tablet 00:00: mouth. [address] risperiDONE 2014-07 Yes .5mg Take 0.5 [place] 0.5 mg 0-15 mg by ity of tablet 00:00: mouth. [address] risperiDONE 2014-07 Yes .5mg Take 0.5 [place] 0.5 mg 0-15 mg by ity of tablet 00:00: mouth. [address] risperiDONE 2014-07 Yes .5mg Take 0.5 [place] 0.5 mg 0-15 mg by ity of tablet 00:00: mouth. [address] risperiDONE 2014-07 Yes .5mg Take 0.5 [place] 0.5 mg 0-15 mg by ity of tablet 00:00: mouth. [address] risperiDONE 2014-07 Yes .5mg Take 0.5 [place] 0.5 mg 0-15 mg by ity of tablet 00:00: mouth. [address] risperiDONE 2014-07 Yes .5mg Take 0.5 [place] 0.5 mg 0-15 mg by it[facility] of tablet 00:00: mouth. [address] risperiDONE 2014-07 Yes .5mg Take 0.5 [place] 0.5 mg 0-15 mg by ity of tablet 00:00: mouth. [address] risperiDONE 2014- Yes .5mg Take 0.5 [place] 0.5 mg 0-15 mg by ity of tablet 00:00: mouth. [address] risperiDONE 2014- Yes .5mg Take 0.5 [place] 0.5 mg 0-15 mg by ity of tablet 00:00: mouth. [address] risperiDONE 2014- Yes .5mg Take 0.5 [place] 0.5 mg 0-15 mg by ity of tablet 00:00: mouth. [address] risperiDONE 2014- Yes .5mg Take 0.5 [place] 0.5 mg 0-15 mg by ity of tablet 00:00: mouth. [address] risperiDONE 2014- Yes .5mg Take 0.5 [place] 0.5 mg 0-15 mg by ity of tablet 00:00: mouth. [address] risperiDONE 2014- Yes .5mg Take 0.5 [place] 0.5 mg 0-15 mg by it[facility] of tablet 00:00: mouth. [address] risperiDONE 2014-07 Yes .5mg Take 0.5 [place] 0.5 mg 0-15 mg by ity of tablet 00:00: mouth. [address] risperiDONE 2014- Yes .5mg Take 0.5 [place] 0.5 mg 0-15 mg by it[facility] of tablet 00:00: mouth. [address] risperiDONE 2014-07 Yes .5mg Take 0.5 [place] 0.5 mg 0-15 mg by it[facility] of tablet 00:00: mouth. [address] risperiDONE 2014- Yes .5mg Take 0.5 [place] 0.5 mg 0-15 mg by ity of tablet 00:00: mouth. [address] risperiDONE 2014- Yes .5mg Take 0.5 [place] 0.5 mg 0-15 mg by it[facility] of tablet 00:00: mouth. [address] risperiDONE 2014- Yes .5mg Take 0.5 [place] 0.5 mg 0-15 mg by ity of tablet 00:00: mouth. [address] risperiDONE 2014-07 Yes .5mg Take 0.5 [place] 0.5 mg 0-15 mg by ity of tablet 00:00: mouth. [address] risperiDONE 2014-07 Yes .5mg Take 0.5 [place] 0.5 mg 0-15 mg by ity of tablet 00:00: mouth. [address] risperiDONE 2014-07 Yes .5mg Take 0.5 [place] 0.5 mg 0-15 mg by ity of tablet 00:00: mouth. [place] [facility] risperiDONE 2014-07 Yes .5mg Take 0.5 [place] 0.5 mg 0-15 mg by ity of tablet 00:00: mouth. [address] risperiDONE 2014-07 Yes .5mg Take 0.5 [place] 0.5 mg 0-15 mg by ity of tablet 00:00: mouth. [address] risperiDONE 2014-07 Yes .5mg Take 0.5 [place] 0.5 mg 0-15 mg by ity of tablet 00:00: mouth. [address] risperiDONE 2014-07 Yes .5mg Take 0.5 [place] 0.5 mg 0-15 mg by ity of tablet 00:00: mouth. [address] risperiDONE 2014-07 Yes .5mg Take 0.5 [place] 0.5 mg 0-15 mg by ity of tablet 00:00: mouth. [address] risperiDONE 2014-07 Yes .5mg Take 0.5 [place] 0.5 mg 0-15 mg by ity of tablet 00:00: mouth. [address] risperiDONE 2014-07 Yes .5mg Take 0.5 [place] 0.5 mg 0-15 mg by ity of tablet 00:00: mouth. [address] risperiDONE 2014-07 Yes .5mg Take 0.5 [place] 0.5 mg 0-15 mg by ity of tablet 00:00: mouth. [address] risperiDONE 2014-07 Yes .5mg Take 0.5 [place] 0.5 mg 0-15 mg by ity of tablet 00:00: mouth. [address] risperiDONE 2014-07 Yes .5mg Take 0.5 [place] 0.5 mg 0-15 mg by ity of tablet 00:00: mouth. [address] risperiDONE 2014-07 Yes .5mg Take 0.5 [place] 0.5 mg 0-15 mg by ity of tablet 00:00: mouth. [address] risperiDONE 2014-07 Yes .5mg Take 0.5 [place] 0.5 mg 0-15 mg by ity of tablet 00:00: mouth. [address] risperiDONE 2014-07 Yes .5mg Take 0.5 [place] 0.5 mg 0-15 mg by ity of tablet 00:00: mouth. [address] risperiDONE 2014-07 Yes .5mg Take 0.5 [place] 0.5 mg 0-15 mg by ity of tablet 00:00: mouth. [address] risperiDONE 2014-07 Yes .5mg Take 0.5 [place] 0.5 mg 0-15 mg by ity of tablet 00:00: mouth. [address] risperiDONE 2014-07 Yes .5mg Take 0.5 [place] 0.5 mg 0-15 mg by ity of tablet 00:00: mouth. [address] risperiDONE 2014-07 Yes .5mg Take 0.5 [place] 0.5 mg 0-15 mg by ity of tablet 00:00: mouth. [address] risperiDONE 2014-07 Yes .5mg Take 0.5 [place] 0.5 mg 0-15 mg by ity of tablet 00:00: mouth. [address] risperiDONE 2014-07 Yes .5mg Take 0.5 [place] 0.5 mg 0-15 mg by ity of tablet 00:00: mouth. [address] risperiDONE 2014-07 Yes .5mg Take 0.5 [place] 0.5 mg 0-15 mg by ity of tablet 00:00: mouth. [address] risperiDONE 2014-07 Yes .5mg Take 0.5 [place] 0.5 mg 0-15 mg by ity of tablet 00:00: mouth. [address] risperiDONE 2014-07 Yes .5mg Take 0.5 [place] 0.5 mg 0-15 mg by ity of tablet 00:00: mouth. [address] risperiDONE 2014-07 Yes .5mg Take 1 [facility] 0.5 mg 0-15 tablet by ity of tablet 00:00: mouth in [address] morning [place] and 1 tablet in the evening. risperiDONE 2014-07 Yes .5mg Take 1 [facility] 0.5 mg 0-15 tablet by it[facility] of tablet 00:00: mouth in [place] 00 the [facility] morning Branch and 1 tablet in the evening. risperiDONE 2015-1 Yes .5mg Take 1 [facility] 0.5 mg 0-15 tablet by ity of tablet 00:00: mouth in [place] 00 the Medical morning Branch and 1 tablet in the evening. risperiDONE 2015-1 Yes .5mg Take 1 [facility] 0.5 mg 0-15 tablet by it[facility] of tablet 00:00: mouth in [place] 00 the Medical morning Branch and 1 tablet in the evening. risperiDONE 2015-1 Yes .5mg Take 1 [facility] 0.5 mg 0-15 tablet by ity of tablet 00:00: mouth in [place] 00 the Medical morning Branch and 1 tablet in the evening. risperiDONE 2015-1 Yes .5mg Take 1 [facility] 0.5 mg 0-15 tablet by ity of tablet 00:00: mouth in [place] 00 the Medical morning Branch and 1 tablet in the evening. risperiDONE 2015-1 Yes .5mg Take 1 [facility] 0.5 mg 0-15 tablet by ity of tablet 00:00: mouth in [place] 00 the Medical morning Branch and 1 tablet in the evening. risperiDONE 2015-1 Yes .5mg Take 1 [facility] 0.5 mg 0-15 tablet by ity of tablet 00:00: mouth in [place] 00 the Medical morning Branch and 1 tablet in the evening. risperiDONE 2015-1 Yes .5mg Take 1 [facility] 0.5 mg 0-15 tablet by ity of tablet 00:00: mouth in [place] 00 the Medical morning Branch and 1 tablet in the evening. risperiDONE 2015-1 Yes .5mg Take 1 [facility] 0.5 mg 0-15 tablet by ity of tablet 00:00: mouth in [place] 00 the Medical morning Branch and 1 tablet in the evening. risperiDONE 2015-1 Yes .5mg Take 1 [facility] 0.5 mg 0-15 tablet by it[facility] of tablet 00:00: mouth in [place] 00 the Medical morning Branch and 1 tablet in the evening. risperiDONE 2015-1 Yes .5mg Take 1 [facility] 0.5 mg 0-15 tablet by it[facility] of tablet 00:00: mouth in [place] 00 the Medical morning Branch and 1 tablet in the evening. risperiDONE 2015-1 Yes .5mg Take 1 [facility] 0.5 mg 0-15 tablet by it[facility] of tablet 00:00: mouth in [place] 00 the Medical morning Branch and 1 tablet in the evening. risperiDONE 2015-1 Yes .5mg Take 1 [facility] 0.5 mg 0-15 tablet by ity of tablet 00:00: mouth in [place] 00 the Medical morning Branch and 1 tablet in the evening. risperiDONE 2015-1 Yes .5mg Take 1 [facility] 0.5 mg 0-15 tablet by ity of tablet 00:00: mouth in [place] [address] the Medical morning Branch and 1 tablet in the evening. risperiDONE 2015-1 Yes .5mg Take 1 [facility] 0.5 mg 0-15 tablet by ity of tablet 00:00: mouth in [place] [address] the Medical morning Branch and 1 tablet in the evening. risperiDONE 2015-1 Yes .5mg Take 1 [facility] 0.5 mg 0-15 tablet by ity of tablet 00:00: mouth in [place] [address] the Medical morning Branch and 1 tablet in the evening. risperiDONE 2015-1 Yes .5mg Take 1 [facility] 0.5 mg 0-15 tablet by ity of tablet 00:00: mouth in [place] [address] the Medical morning Branch and 1 tablet in the evening. risperiDONE 2014- Yes .5mg Take 1 [facility] 0.5 mg 0-15 tablet by ity of tablet 00:00: mouth in [place] [address] the Medical morning Branch and 1 tablet in the evening. risperiDONE 2015- Yes .5mg Take 1 [facility] 0.5 mg 0-15 tablet by ity of tablet 00:00: mouth in [place] [address] the Medical morning Branch and 1 tablet in the evening. risperiDONE 2015-1 Yes .5mg Take 1 [facility] 0.5 mg 0-15 tablet by ity of tablet 00:00: mouth in [place] [address] the Medical morning Branch and 1 tablet in the evening. risperiDONE 2015-1 Yes .5mg Take 1 [facility] 0.5 mg 0-15 tablet by ity of tablet 00:00: mouth in [place] [address] the Medical morning Branch and 1 tablet in the evening. risperiDONE 2015-1 Yes .5mg Take 1 [facility] 0.5 mg 0-15 tablet by ity of tablet 00:00: mouth in [place] [address] the Medical morning Branch and 1 tablet in the evening. risperiDONE 2015-1 Yes .5mg Take 1 [facility] 0.5 mg 0-15 tablet by ity of tablet 00:00: mouth in [place] [address] the Medical morning Branch and 1 tablet in the evening. risperiDONE 2015-1 Yes .5mg Take 1 [facility] 0.5 mg 0-15 tablet by ity of tablet 00:00: mouth in [place] 00 the Medical morning Branch and 1 tablet in the evening. risperiDONE 2014- Yes .5mg Take 1 [facility] 0.5 mg 0-15 tablet by ity of tablet 00:00: mouth in [place] 00 the Medical morning Branch and 1 tablet in the evening. risperiDONE 2015-1 Yes .5mg Take 1 [facility] 0.5 mg 0-15 tablet by ity of tablet 00:00: mouth in [place] 00 the Medical morning Branch and 1 tablet in the evening. risperiDONE 2015- Yes .5mg Take 1 [facility] 0.5 mg 0-15 tablet by ity of tablet 00:00: mouth in [place] 00 the Medical morning Branch and 1 tablet in the evening. risperiDONE 2014- Yes .5mg Take 1 [facility] 0.5 mg 0-15 tablet by ity of tablet 00:00: mouth in [place] 00 the Medical morning Branch and 1 tablet in the evening. risperiDONE 2014- Yes .5mg Take 1 [facility] 0.5 mg 0-15 tablet by ity of tablet 00:00: mouth in [place] 00 the Medical morning Branch and 1 tablet in the evening. risperiDONE 2014- Yes .5mg Take 1 [facility] 0.5 mg 0-15 tablet by ity of tablet 00:00: mouth in [place] 00 the Medical morning Branch and 1 tablet in the evening. risperiDONE 2015- Yes .5mg Take 1 [facility] 0.5 mg 0-15 tablet by ity of tablet 00:00: mouth in [place] 00 the Medical morning Branch and 1 tablet in the evening. risperiDONE 2014- Yes .5mg Take 1 [facility] 0.5 mg 0-15 tablet by ity of tablet 00:00: mouth in [place] 00 the Medical morning Branch and 1 tablet in the evening. risperiDONE 2015-1 Yes .5mg Take 1 [facility] 0.5 mg 0-15 tablet by ity of tablet 00:00: mouth in [place] 00 the Medical morning Branch and 1 tablet in the evening. risperiDONE 2015-1 Yes .5mg Take 1 [facility] 0.5 mg 0-15 tablet by ity of tablet 00:00: mouth in [place] 00 the Medical morning Branch and 1 tablet in the evening. risperiDONE 2014-1 Yes .5mg Take 1 [facility] 0.5 mg 0-15 tablet by ity of tablet 00:00: mouth in [place] 00 the Medical morning Branch and 1 tablet in the evening. risperiDONE 2015-1 Yes .5mg Take 1 [facility] 0.5 mg 0-15 tablet by ity of tablet 00:00: mouth in [place] 00 the Medical morning Branch and 1 tablet in the evening. risperiDONE 2015-1 Yes .5mg Take 1 [facility] 0.5 mg 0-15 tablet by ity of tablet 00:00: mouth in [place] 00 the Medical morning Branch and 1 tablet in the evening. risperiDONE 2015-1 Yes .5mg Take 1 [facility] 0.5 mg 0-15 tablet by ity of tablet 00:00: mouth in [place] 00 the Medical morning Branch and 1 tablet in the evening. risperiDONE 2015-1 Yes .5mg Take 1 [facility] 0.5 mg 0-15 tablet by ity of tablet 00:00: mouth in [place] 00 the Medical morning Branch and 1 tablet in the evening. risperiDONE 2015-1 Yes .5mg Take 1 [facility] 0.5 mg 0-15 tablet by ity of tablet 00:00: mouth in [place] 00 the Medical morning Branch and 1 tablet in the evening. risperiDONE 2015-1 Yes .5mg Take 1 [facility] 0.5 mg 0-15 tablet by it[facility] of tablet 00:00: mouth in [place] 00 the Medical morning Branch and 1 tablet in the evening. risperiDONE 2015-1 Yes .5mg Take 1 [facility] 0.5 mg 0-15 tablet by ity of tablet 00:00: mouth in [place] 00 the Medical morning Branch and 1 tablet in the evening. risperiDONE 2015-1 Yes .5mg Take 1 [facility] 0.5 mg 0-15 tablet by it[facility] of tablet 00:00: mouth in [place] 00 the Medical morning Branch and 1 tablet in the evening. risperiDONE 2015-1 Yes .5mg Take 1 [facility] 0.5 mg 0-15 tablet by ity of tablet 00:00: mouth in [place] 00 the Medical morning Branch and 1 tablet in the evening. risperiDONE 2015-1 Yes .5mg Take 1 [facility] 0.5 mg 0-15 tablet by ity of tablet 00:00: mouth in [place] 00 the Medical morning Branch and 1 tablet in the evening. risperiDONE 2015-1 Yes .5mg Take 1 [facility] 0.5 mg 0-15 tablet by ity of tablet 00:00: mouth in [place] 00 the Medical morning Branch and 1 tablet in the evening. risperiDONE 2015-1 Yes .5mg Take 1 [facility] 0.5 mg 0-15 tablet by ity of tablet 00:00: mouth in [place] 00 the Medical morning Branch and 1 tablet in the evening. risperiDONE 2014- Yes .5mg Take 1 [facility] 0.5 mg 0-15 tablet by ity of tablet 00:00: mouth in [place] [address] the Medical morning Branch and 1 tablet in the evening. risperiDONE 2014- Yes .5mg Take 1 [facility] 0.5 mg 0-15 tablet by ity of tablet 00:00: mouth in [place] 00 the Medical morning Branch and 1 tablet in the evening. risperiDONE 2014- Yes .5mg Take 1 [facility] 0.5 mg 0-15 tablet by ity of tablet 00:00: mouth in [place] [address] the Medical morning Branch and 1 tablet in the evening. risperiDONE 2014- Yes .5mg Take 1 [facility] 0.5 mg 0-15 tablet by ity of tablet 00:00: mouth in [place] [address] the Medical morning Branch and 1 tablet in the evening. risperiDONE 2014- Yes .5mg Take 1 [facility] 0.5 mg 0-15 tablet by ity of tablet 00:00: mouth in [place] [address] the Medical morning Branch and 1 tablet in the evening. risperiDONE 2014- Yes .5mg Take 1 [facility] 0.5 mg 0-15 tablet by ity of tablet 00:00: mouth in [place] [address] the Medical morning Branch and 1 tablet in the evening. risperiDONE 2014- Yes .5mg Take 1 [facility] 0.5 mg 0-15 tablet by ity of tablet 00:00: mouth in [place] [address] the Medical morning Branch and 1 tablet in the evening. ranitidine 0 Yes [facility] (ZANTAC) 15 7-31 ity of mg/mL syrup 00:00: [place] 00 [facility] ranitidine 2013-0 Yes Univers (ZANTAC) 15 7-31 ity of mg/mL syrup 00:00: [place] 00 [facility] ranitidine 2013-0 Yes Univers (ZANTAC) 15 7-31 ity of mg/mL syrup 00:00: [place] 00 [facility] ranitidine 2013-0 Yes Univers (ZANTAC) 15 7-31 ity of mg/mL syrup 00:00: [place] 00 [facility] ranitidine 2013-0 Yes Univers (ZANTAC) 15 7-31 ity of mg/mL syrup 00:00: [place] 00 [facility] ranitidine 0 Yes [facility] (ZANTAC) 15 7-31 [...] 15 7-31 ity of mg/mL syrup 00:00: [place] [facility] ranitidine 0 Yes [facility] (ZANTAC) 15 7-31 ity of mg/mL syrup 00:00: [place] [facility] ranitidine 0 Yes [facility] (ZANTAC) [...] 15 7-31 ity of mg/mL syrup 00:00: [place] [facility] ranitidine 2013-0 Yes [facility] (ZANTAC) [...] 00:00: [place] 00 [facility] ranitidine 2013-0 2023- No [facility] (ZANTAC) 15 7-18 08-31 ity of mg/mL syrup 00:00: 00:00 [place] 00 :00 Medical Branch ranitidine 2022- No [facility] (ZANTAC) 15 02-15 ity of mg/mL syrup 00:00: 00:00 00 :00 Medical Branch ranitidine 2022- No [facility] (ZANTAC) 15 02-15 ity of mg/mL syrup 00:00: 00:00 [place] 00 :00 Medical Branch ranitidine 2022- No [facility] (ZANTAC) 15 02-15 ity of mg/mL syrup 00:00: 00:00 [place] 00 :00 Medical Branch DDAVP 10 2019- No [facility] mcg/spray 11-06 ity of solution 00:00: 00:00 [place] 00 :00 Medical Branch MULTIVITAMI Yes one daily [facility] N ORAL TAB 2-19 ity of 00:00: [place] 00 [facility] MULTIVITAMI Yes one daily [facility] N ORAL TAB 2-19 ity of 00:00: [place] 00 [facility] MULTIVITAMI 0 Yes one daily [facility] N ORAL TAB 2-19 ity of 00:00: [place] [facility] MULTIVITAMI Yes one daily [facility] N ORAL TAB 2-19 ity of 00:00: [place] [facility] MULTIVITAMI 0 Yes one daily [facility] N ORAL TAB 2-19 ity of 00:00: [place] 00 [facility] MULTIVITAMI 0 Yes one daily [facility] N ORAL TAB 2-19 ity of 00:00: [place] [facility] MULTIVITAMI 2008-0 Yes one daily [facility] N ORAL TAB 2-19 ity of 00:00: [place] [facility] MULTIVITAMI 0 Yes one daily [facility] N ORAL TAB 2-19 ity of 00:00: [place] [facility] MULTIVITAMI 0 Yes one daily [facility] N ORAL TAB 2-19 ity of 00:00: [place] [facility] MULTIVITAMI 0 Yes one daily [facility] N ORAL TAB 2-19 ity of 00:00: [place] 00 [facility] MULTIVITAMI 0 Yes one daily [facility] N ORAL TAB 2-19 ity of 00:00: [place] 00 [facility] MULTIVITAMI 2009-0 Yes one daily [facility] N ORAL TAB 2-19 ity of 00:00: [place] 00 [facility] MULTIVITAMI 2009-0 Yes one daily [facility] N ORAL TAB 2-19 ity of 00:00: [place] [facility] MULTIVITAMI 2009-0 Yes one daily [facility] N ORAL TAB 2-19 ity of 00:00: [place] [facility] MULTIVITAMI 2009-0 Yes one daily [facility] N ORAL TAB 2-19 ity of 00:00: [place] [facility] MULTIVITAMI 2009-0 Yes one daily [facility] N ORAL TAB 2-19 ity of 00:00: [place] [facility] MULTIVITAMI 2009-0 Yes one daily [facility] N ORAL TAB 2-19 ity of :00: [place] [facility] MULTIVITAMI 2009-0 Yes one daily [facility] N ORAL TAB 2-19 ity of 00:00: [place] 00 [facility] MULTIVITAMI 2009-0 Yes one daily [facility] N ORAL TAB 2-19 ity of :00: [place] [facility] MULTIVITAMI 2009-0 Yes one daily [facility] N ORAL TAB 2-19 ity of 00:00: [place] [facility] MULTIVITAMI 2009-0 Yes one daily [facility] N ORAL TAB 2-19 ity of :00: [place] [facility] MULTIVITAMI 2009-0 Yes one daily [facility] N ORAL TAB 2-19 ity of :00: [place] [facility] MULTIVITAMI 2009-0 Yes one daily [facility] N ORAL TAB 2-19 ity of 00:00: [place] 00 [facility] MULTIVITAMI 2009-0 Yes one daily [facility] N ORAL TAB 2-19 ity of 00:00: [place] [facility] MULTIVITAMI 2009-0 Yes one daily [facility] N ORAL TAB 2-19 ity of 00:00: [place] 00 [facility] MULTIVITAMI 2009-0 Yes one daily [facility] N ORAL TAB 2-19 ity of 00:00: [place] 00 [facility] MULTIVITAMI 2008-0 Yes one daily [facility] N ORAL TAB 2-19 ity of 00:00: [place] 00 [facility] MULTIVITAMI 2008-0 Yes one daily [facility] N ORAL TAB 2-19 ity of 00:00: [place] 00 [facility] MULTIVITAMI 2008-0 Yes one daily [facility] N ORAL TAB 2-19 ity of 00:00: [place] 00 [facility] MULTIVITAMI 2009-0 Yes one daily [facility] N ORAL TAB 2-19 ity of 00:00: [place] [facility] MULTIVITAMI 2009-0 Yes one daily [facility] N ORAL TAB 2-19 ity of 00:00: [place] [facility] MULTIVITAMI 2009-0 Yes one daily [facility] N ORAL TAB 2-19 ity of 00:00: [place] [facility] MULTIVITAMI 2009-0 Yes one daily [facility] N ORAL TAB 2-19 ity of 00:00: [place] [facility] MULTIVITAMI 2008-0 Yes one daily [facility] N ORAL TAB 2-19 ity of 00:00: [place] [facility] MULTIVITAMI 2009-0 Yes one daily [facility] N ORAL TAB 2-19 ity of 00:00: [place] [facility] MULTIVITAMI 2008-0 Yes one daily [facility] N ORAL TAB 2-19 ity of 00:00: [place] 00 [facility] MULTIVITAMI 2009-0 Yes one daily [facility] N ORAL TAB 2-19 ity of :00: [place] [facility] MULTIVITAMI 2008-0 Yes one daily [facility] N ORAL TAB 2-19 ity of 00:00: [place] 00 [facility] MULTIVITAMI 2009-0 Yes one daily [facility] N ORAL TAB 2-19 ity of 00:00: [place] [facility] MULTIVITAMI 2008-0 Yes one daily [facility] N ORAL TAB 2-19 ity of 00:00: [place] 00 [facility] MULTIVITAMI 2009-0 Yes one daily [facility] N ORAL TAB 2-19 ity of 00:00: [place] 00 [facility] MULTIVITAMI 2009-0 Yes one daily [facility] N ORAL TAB 2-19 ity of 00:00: [place] 00 [facility] MULTIVITAMI 2009-0 Yes one daily [facility] N ORAL TAB 2-19 ity of 00:00: [place] 00 [facility] MULTIVITAMI 2008-0 Yes one daily [facility] N ORAL TAB 2-19 ity of 00:00: [place] 00 [facility] MULTIVITAMI 2008-0 Yes one daily [facility] N ORAL TAB 2-19 ity of 00:00: [place] 00 [facility] MULTIVITAMI 2008-0 Yes one daily [facility] N ORAL TAB 2-19 ity of 00:00: [place] 00 [facility] MULTIVITAMI 2009-0 Yes one daily [facility] N ORAL TAB 2-19 ity of 00:00: [place] [facility] MULTIVITAMI 2009-0 Yes one daily [facility] N ORAL TAB 2-19 ity of 00:00: [place] [facility] MULTIVITAMI 2009-0 Yes one daily [facility] N ORAL TAB 2-19 ity of 00:00: [place] [facility] MULTIVITAMI 2009-0 Yes one daily [facility] N ORAL TAB 2-19 ity of 00:00: [place] [facility] MULTIVITAMI 2009-0 Yes one daily [facility] N ORAL TAB 2-19 ity of 00:00: [place] [facility] MULTIVITAMI 2009-0 Yes one daily [facility] N ORAL TAB 2-19 ity of :00: [place] [facility] MULTIVITAMI 2008-0 Yes one daily [facility] n[facility] N ORAL TAB 2-19 ity of 00:00: [place] [facility] MULTIVITAMI 2009-0 Yes one daily U nivers N ORAL TAB 2-19 ity of :00: [facility] MULTIVITAMI 2008-0 Yes one daily U [facility]ivers N ORAL TAB 2-19 ity of 00:00: [facility] MULTIVITAMI 2009-0 Yes one daily U [facility]ivers N ORAL TAB 2-19 ity of :00: [facility] MULTIVITAMI 2009-0 Yes one daily U [facility] N ORAL TAB 2-19 ity of 00:00: [facility] MULTIVITAMI 2009-0 Yes one daily U [facility] N ORAL TAB 2-19 ity of 00:00: [facility] MULTIVITAMI 2009-0 Yes one daily U [facility] N ORAL TAB 2-19 [facility] 00:00: [facility] MULTIVITAMI 2009-0 Yes one daily U [facility] N ORAL TAB 2-19 ity of 00:00: [facility] MULTIVITAMI 2009-0 Yes one daily U [facility] N ORAL TAB 2-19 ity of 00:00: [facility] MULTIVITAMI 2008-0 Yes one daily U [facility] N ORAL TAB 2-19 [facility]y of 00:00: [facility] MULTIVITAMI 2008-0 Yes one daily U [facility] N ORAL TAB 2-19 ity of 00:00: [facility] MULTIVITAMI 2009-0 Yes one daily U [facility] N ORAL TAB 2-19 ity of 00:00: [facility] MULTIVITAMI 2009-0 Yes one daily U nivers N ORAL TAB 2-19 ity of 00:00: [facility] MULTIVITAMI 2009-0 Yes one daily U [facility] N ORAL TAB 2-19 ity of 00:00: [facility] MULTIVITAMI 2009-0 Yes one daily U [facility] N ORAL TAB 2-19 ity of 00:00: [facility] MULTIVITAMI 2009-0 Yes one daily U [facility] N ORAL TAB 2-19 ity of 00:00: [facility] MULTIVITAMI 2009-0 Yes one daily U [facility] N ORAL TAB 2-19 ity of 00:00: [facility] MULTIVITAMI 2009-0 Yes one daily U [facility] N ORAL TAB 2-19 ity of 00:00: [facility] MULTIVITAMI 2009-0 Yes one daily U nivers N ORAL TAB 2-19 ity of 00:00: [facility] MULTIVITAMI 2009-0 Yes one daily U [facility] N ORAL TAB 2-19 ity of 00:00: [facility] MULTIVITAMI 2009-0 Yes one daily U [facility] N ORAL TAB 2-19 ity of 00:00: [facility] MULTIVITAMI 2009-0 Yes one daily U [facility] N ORAL TAB 2-19 ity of 00:00: [facility] MULTIVITAMI 2009-0 Yes one daily U [facility] N ORAL TAB 2-19 ity of 00:00: [facility] MULTIVITAMI 2009-0 Yes one daily U [facility] N ORAL TAB 2-19 ity of 00:00: [facility] MULTIVITAMI 2009-0 Yes one daily U [facility] N ORAL TAB 2-19 ity of 00:00: [facility] MULTIVITAMI 2009-0 Yes one daily U n[facility] N ORAL TAB 2-19 ity of 00:00: [facility] MULTIVITAMI 2009-0 Yes one daily U [facility] N ORAL TAB 2-19 ity of 00:00: [facility] MULTIVITAMI 2009-0 Yes one daily U [facility] N ORAL TAB 2-19 ity of 00:00: [facility] MULTIVITAMI 2009-0 Yes one daily U nivers N ORAL TAB 2-19 ity of 00:00: [facility] MULTIVITAMI 2009-0 Yes one daily U nivers N ORAL TAB 2-19 ity of 00:00: [facility] MULTIVITAMI 2009-0 Yes one daily U [facility] N ORAL TAB 2-19 ity of 00:00: [facility] MULTIVITAMI 2009-0 Yes one daily U [facility] N ORAL TAB 2-19 ity of 00:00: [facility] MULTIVITAMI 2009-0 Yes one daily U [facility] N ORAL TAB 2-19 ity of 00:00: [facility] MULTIVITAMI 2009-0 Yes one daily U nivers N ORAL TAB 2-19 ity of :: [facility] MULTIVITAMI 2009-0 Yes one daily U n[facility] N ORAL TAB 2-19 ity of 00:00: [facility] MULTIVITAMI 2009-0 Yes one daily U n[facility] N ORAL TAB 2-19 ity of :00: [facility] MULTIVITAMI 2009-0 Yes one daily U nivers N ORAL TAB 2-19 ity of 00:00: [facility] MULTIVITAMI 2009-0 Yes one daily U n[facility] N ORAL TAB 2-19 ity of 00:00: [facility] MULTIVITAMI 2009-0 Yes one daily U nivers N ORAL TAB 2-19 ity of :00: [facility] MULTIVITAMI 2009-0 Yes one daily U n[facility] N ORAL TAB 2-19 ity of 00:00: [facility] MULTIVITAMI 2009-0 Yes one daily U n[facility] N ORAL TAB 2-19 ity of 00:00: [facility] MULTIVITAMI 2009-0 Yes one daily U n[facility] N ORAL TAB 2-19 ity of 00:00: [facility] MULTIVITAMI 2009-0 Yes one daily U n[facility] N ORAL TAB 2-19 ity of 00:00: [facility] MULTIVITAMI 2009-0 Yes one daily U n[facility] N ORAL TAB 2-19 ity of 00:00: [facility] MULTIVITAMI 2008-0 Yes one daily U nivers N ORAL TAB 2-19 ity of 00:00: [facility] MULTIVITAMI 2008-0 Yes one daily U n[facility] N ORAL TAB 2-19 ity of 00:00: [facility] MULTIVITAMI 2009-0 Yes one daily U n[facility] N ORAL TAB 2-19 ity of 00:00: [facility] MULTIVITAMI 2009-0 Yes one daily U nivers N ORAL TAB 2-19 ity of 00:00: [facility] MULTIVITAMI 2009-0 Yes one daily U n[facility] N ORAL TAB 2-19 ity of 00:00: [facility] MULTIVITAMI 2009-0 Yes one daily U nivers N ORAL TAB 2-19 ity of 00:00: [facility] MULTIVITAMI 2008-0 Yes one daily U nivers N ORAL TAB 2-19 ity of 00:00: [facility] MULTIVITAMI 2009- Yes one daily U nivers N ORAL TAB 2-19 ity of 00:00: [facility] MULTIVITAMI 2008-0 Yes one daily U nivers N ORAL TAB 2-19 ity of 00:00: [facility] MULTIVITAMI 2009-0 Yes one daily U nivers N ORAL TAB 2-19 ity of :00: [facility] MULTIVITAMI 2008- Yes one daily U n[facility] N ORAL TAB 2-19 ity of 00:00: [facility] MULTIVITAMI 2009-0 Yes one daily U nivers N ORAL TAB 2-19 ity of 00:00: [facility] MULTIVITAMI 2008-0 Yes one daily U n[facility] N ORAL TAB 2-19 ity of 00:00: [facility] MULTIVITAMI 2009-0 Yes one daily U n[facility] N ORAL TAB 2-19 ity of 00:00: [facility] MULTIVITAMI 2009-0 Yes one daily U nivers N ORAL TAB 2-19 ity of 00:00: [facility] MULTIVITAMI 2009-0 Yes one daily U nivers N ORAL TAB 2-19 ity of 00:00: [facility] MULTIVITAMI 2008-0 Yes one daily U nivers N ORAL TAB 2-19 ity of 00:00: [facility] MULTIVITAMI 2008-0 Yes one daily U nivers N ORAL TAB 2-19 ity of 00:00: [facility] MULTIVITAMI 2008-0 Yes one daily U nivers N ORAL TAB 2-19 ity of 00:00: [facility] MULTIVITAMI 2009-0 Yes one daily U nivers N ORAL TAB 2-19 ity of 00:00: [facility] MULTIVITAMI 2009-0 Yes one daily U nivers N ORAL TAB 2-19 ity of 00:00: [facility] MULTIVITAMI 2009-0 Yes one daily U n[facility] N ORAL TAB 2-19 ity of 00:00: [facility] MULTIVITAMI 2009-0 Yes one daily U nivers N ORAL TAB 2-19 ity of 00:00: [facility] MULTIVITAMI 2009-0 Yes one daily U nivers N ORAL TAB 2-19 ity of 00:00: [facility] MULTIVITAMI 2009-0 Yes one daily U nivers N ORAL TAB 2-19 ity of :00: [facility] MULTIVITAMI 2008-0 Yes one daily U nivers N ORAL TAB 2-19 ity of 00:00: [facility] MULTIVITAMI 2009-0 Yes one daily U nivers N ORAL TAB 2-19 ity of :00: [facility] MULTIVITAMI 2008- Yes one daily U nivers N ORAL TAB 2-19 ity of 00:00: [facility] MULTIVITAMI 2009-0 Yes one daily U nivers N ORAL TAB 2-19 ity of :00: [facility] MULTIVITAMI 2009-0 Yes one daily U nivers N ORAL TAB 2-19 ity of 00:00: [facility] MULTIVITAMI 2009-0 Yes one daily U nivers N ORAL TAB 2-19 ity of 00:00: [facility] MULTIVITAMI 2009-0 Yes one daily U nivers N ORAL TAB 2-19 ity of 00:00: [facility] MULTIVITAMI 2009-0 Yes one daily U nivers N ORAL TAB 2-19 ity of 00:00: [facility] MULTIVITAMI 2009-0 Yes one daily U nivers N ORAL TAB 2-19 ity of 00:00: [facility] MULTIVITAMI 2008-0 Yes one daily U nivers N ORAL TAB 2-19 ity of 00:00: [facility] MULTIVITAMI 2008-0 Yes one daily U nivers N ORAL TAB 2-19 ity of 00:00: [facility] MULTIVITAMI 2009-0 Yes one daily U nivers N ORAL TAB 2-19 ity of 00:00: [facility] MULTIVITAMI 2009-0 Yes one daily U nivers N ORAL TAB 2-19 ity of 00:00: [facility] MULTIVITAMI 2009-0 Yes one daily U nivers N ORAL TAB 2-19 ity of 00:00: [facility] MULTIVITAMI 2009-0 Yes one daily U nivers N ORAL TAB 2-19 ity of 00:00: [facility] MULTIVITAMI 2009-0 Yes one daily U nivers N ORAL TAB 2-19 ity of 00:00: [facility] MULTIVITAMI 2009-0 Yes one daily U nivers N ORAL TAB 2-19 ity of 00:00: [facility] MULTIVITAMI 2009-0 Yes one daily U nivers N ORAL TAB 2-19 ity of 00:00: [facility] MULTIVITAMI 2009-0 Yes one daily U nivers N ORAL TAB 2-19 ity of 00:00: [facility] MULTIVITAMI 2009-0 Yes one daily U nivers N ORAL TAB 2-19 ity of 00:00: [facility] MULTIVITAMI 2009-0 Yes one daily U nivers N ORAL TAB 2-19 ity of 00:00: [facility] MULTIVITAMI 2009-0 Yes one daily U nivers N ORAL TAB 2-19 ity of 00:00: [facility] MULTIVITAMI 2009-0 Yes one daily U nivers N ORAL TAB 2-19 ity of 00:00: [facility] MULTIVITAMI 2009-0 Yes one daily U nivers N ORAL TAB 2-19 ity of 00:00: [facility] MULTIVITAMI 2009-0 Yes one daily U nivers N ORAL TAB 2-19 ity of 00:00: [facility] MULTIVITAMI 2009-0 Yes one daily U nivers N ORAL TAB 2-19 ity of 00:00: [facility] MULTIVITAMI 2009-0 Yes one daily U nivers N ORAL TAB 2-19 ity of 00:00: [facility] MULTIVITAMI 2009-0 Yes one daily U nivers N ORAL TAB 2-19 ity of 00:00: [facility] MULTIVITAMI 2009-0 Yes one daily U nivers N ORAL TAB 2-19 ity of 00:00: [facility] MULTIVITAMI 2009-0 Yes one daily U nivers N ORAL TAB 2-19 ity of 00:00: [facility] MULTIVITAMI 2009-0 Yes one daily U nivers N ORAL TAB 2-19 ity of 00:00: [facility] MULTIVITAMI 2009-0 Yes one daily U nivers N ORAL TAB 2-19 ity of 00:00: [facility] MULTIVITAMI 2009-0 Yes one daily U nivers N ORAL TAB 2-19 ity of 00:00: [facility] MULTIVITAMI 2009-0 Yes one daily U nivers N ORAL TAB 2-19 ity of :: [facility] MULTIVITAMI 2009-0 Yes one daily U nivers N ORAL TAB 2-19 ity of 00:00: [facility] MULTIVITAMI 2009-0 Yes one daily U nivers N ORAL TAB 2-19 ity of :: [facility] MULTIVITAMI 2009-0 Yes one daily U nivers N ORAL TAB 2-19 ity of 00:00: [facility] MULTIVITAMI 2009-0 Yes one daily U nivers N ORAL TAB 2-19 ity of :00: [facility] MULTIVITAMI 2009-0 Yes one daily U nivers N ORAL TAB 2-19 ity of :00: [facility] MULTIVITAMI 2009-0 Yes one daily U nivers N ORAL TAB 2-19 ity of 00:00: [facility] MULTIVITAMI 2009-0 Yes one daily U nivers N ORAL TAB 2-19 ity of :00: [facility] MULTIVITAMI 2009-0 Yes one daily U nivers N ORAL TAB 2-19 ity of 00:00: [facility] MULTIVITAMI 2009-0 Yes one daily U nivers N ORAL TAB 2-19 ity of 00:00: [facility] MULTIVITAMI 2009-0 Yes one daily U nivers N ORAL TAB 2-19 ity of 00:00: [facility] MULTIVITAMI 2008-0 Yes one daily U nivers N ORAL TAB 2-19 ity of 00:00: [facility] MULTIVITAMI 2008-0 Yes one daily U nivers N ORAL TAB 2-19 ity of 00:00: [facility] MULTIVITAMI 2009-0 Yes one daily U nivers N ORAL TAB 2-19 ity of 00:00: [facility] MULTIVITAMI 2009-0 Yes one daily U nivers N ORAL TAB 2-19 ity of 00:00: [facility] MULTIVITAMI 2009-0 Yes one daily U nivers N ORAL TAB 2-19 ity of 00:00: [facility] MULTIVITAMI 2009-0 Yes one daily U nivers N ORAL TAB 2-19 ity of 00:00: [facility] MULTIVITAMI 2009-0 Yes one daily U nivers N ORAL TAB 2-19 ity of :00: [facility] MULTIVITAMI 2009-0 Yes one daily U nivers N ORAL TAB 2-19 ity of 00:00: [facility] MULTIVITAMI 2009-0 Yes one daily U nivers N ORAL TAB 2-19 ity of 00:00: [facility] MULTIVITAMI 2009-0 Yes one daily U nivers N ORAL TAB 2-19 ity of :00: [facility] MULTIVITAMI 2009-0 Yes one daily U nivers N ORAL TAB 2-19 ity of 00:00: [facility] MULTIVITAMI 2009-0 Yes one daily U nivers N ORAL TAB 2-19 ity of 00:00: [facility] MULTIVITAMI 2009-0 Yes one daily U nivers N ORAL TAB 2-19 ity of 00:00: [facility] MULTIVITAMI 2009-0 Yes one daily U nivers N ORAL TAB 2-19 ity of 00:00: [facility] MULTIVITAMI 2009-0 Yes one daily U nivers N ORAL TAB 2-19 ity of 00:00: [facility] MULTIVITAMI 2009-0 Yes one daily U nivers N ORAL TAB 2-19 ity of 00:00: [facility] MULTIVITAMI 2009-0 Yes one daily U nivers N ORAL TAB 2-19 ity of 00:00: [facility] MULTIVITAMI 2008-0 Yes one daily U nivers N ORAL TAB 2-19 ity of 00:00: [facility] MULTIVITAMI 2008-0 Yes one daily U nivers N ORAL TAB 2-19 ity of 00:00: [place] [facility] MULTIVITAMI 2009-0 Yes one daily U nivers N ORAL TAB 2-19 ity of 00:00: [facility] MULTIVITAMI 2009-0 Yes one daily U nivers N ORAL TAB 2-19 ity of 00:00: [facility] MULTIVITAMI 0 Yes one daily U nivers N ORAL TAB 2-19 ity of 00:00: [facility] MULTIVITAMI 2008-0 Yes one daily U n[facility] N ORAL TAB 2-19 ity of 00:00: [facility] MULTIVITAMI Yes one daily U nivers N ORAL TAB 2-19 ity of 00:00: [facility] MULTIVITAMI 2008- Yes one daily U n[facility] N ORAL TAB 2-19 ity of 00:00: [facility] MULTIVITAMI Yes one daily U nivers N ORAL TAB 2-19 ity of 00:00: [facility] MULTIVITAMI 2008- Yes one daily U n[facility] N ORAL TAB 2-19 ity of :00: [facility] MULTIVITAMI Yes one daily U n[facility] N ORAL TAB 2-19 ity of 00:00: [facility] MULTIVITAMI 2008- Yes one daily U n[facility] N ORAL TAB 2-19 ity of 00:00: [facility] MULTIVITAMI Yes one daily U n[facility] N ORAL TAB 2-19 ity of 00:00: [facility] MULTIVITAMI 2008-0 Yes one daily U n[facility] N ORAL TAB 2-19 ity of 00:00: [facility] MULTIVITAMI 0 Yes one daily U nivers N ORAL TAB 2-19 ity of 00:00: [facility] MULTIVITAMI Yes one daily U nivers N ORAL TAB 2-19 ity of 00:00: [place] [facility] Immunizations Ordered Filled Immunization Date Status Comments [facility] e Immunization Name Name HPV9 2016-04-01 Completed [place] of 00:00:00 [facility] HPV9 2016-04-01 Completed [place] of 00:00:00 [facility] HPV9 2016-04-01 Completed [place] of 00:00:00 [facility] HPV9 2016-04-01 Completed [place] [facility] 00:00:00 [facility] HPV9 2016-04-01 Completed [facility] 00:[facility]:00 [facility] HPV9 2016-04-01 Completed [facility] 00:00:00 [facility] HPV9 2016-04-01 Completed [facility] 00:00:00 [facility] HPV9 2016-04-01 Completed [facility] 00:00:00 [facility] HPV9 2016-04-01 Completed [facility] 00:00:00 [facility] HPV9 2016-04-01 Completed [facility] 00:00:00 [facility] HPV9 2016-04-01 Completed [facility] 00:00:00 [facility] HPV9 2016-04-01 Completed [facility] 00:00:00 [facility] HPV9 2016-04-01 Completed [facility] 00:00:00 [facility] HPV9 2016-04-01 Completed [facility] 00:00:00 [facility] HPV9 2016-04-01 Completed [facility] 00:00:00 [facility] HPV9 2016-04-01 Completed [facility] 00:00:00 [facility] HPV9 2016-04-01 Completed [facility] 00:00:00 [facility] HPV9 2016-04-01 Completed [facility] 00:00:00 [facility] HPV9 2016-04-01 Completed [facility] 00:00:00 [facility] HPV9 2016-04-01 Completed [facility] 00:00:00 [facility] HPV9 2016-04-01 Completed [facility] 00:00:00 [facility] HPV9 2016-04-01 Completed [facility] 00:00:00 [facility] HPV9 2016-04-01 Completed [facility] 00:00:00 [facility] HPV9 2016-04-01 Completed [facility] 00:00:00 [facility] HPV9 2016-04-01 Completed [facility] 00:00:00 [facility] HPV9 2016-04-01 Completed [facility] 00:00:00 [facility] HPV9 2016-04-01 Completed [facility] 00:00:00 [facility] HPV9 2016-04-01 Completed [facility] 00:00:00 [facility] HPV9 2016-04-01 Completed [facility] 00:00:00 [facility] HPV9 2016-04-01 Completed [facility] 00:00:00 [facility] HPV9 2016-04-01 Completed [facility] 00:00:00 [facility] HPV9 2016-04-01 Completed [facility] 00:00:00 [facility] HPV9 2016-04-01 Completed [facility] 00:00:00 [facility] HPV9 2016-04-01 Completed [facility] 00:00:00 [facility] HPV9 2016-04-01 Completed [facility] 00:00:00 [facility] HPV9 2016-04-01 Completed [facility] 00:00:00 [facility] HPV9 2016-04-01 Completed [facility] 00:00:00 [facility] HPV9 2016-04-01 Completed [facility] 00:00:00 [facility] HPV9 2016-04-01 Completed [facility] 00:00:00 [facility] HPV9 2016-04-01 Completed [facility] 00:00:00 [facility] HPV9 2016-04-01 Completed [facility] 00:00:00 [facility] HPV9 2016-04-01 Completed [facility] 00:00:00 [facility] HPV9 2016-04-01 Completed [facility] 00:00:00 [facility] HPV9 2016-04-01 Completed [facility] 00:00:00 [facility] HPV9 2016-04-01 Completed [facility] 00:00:00 [facility] HPV9 2016-04-01 Completed [facility] 00:00:00 [facility] HPV9 2016-04-01 Completed [facility] 00:00:00 [facility] HPV9 2016-04-01 Completed [facility] 00:00:00 [facility] HPV9 2016-04-01 Completed [facility] 00:00:00 [facility] HPV9 2016-04-01 Completed [facility] 00:00:00 [facility] HPV9 2016-04-01 Completed [facility] 00:00:00 [facility] HPV9 2016-04-01 Completed [facility] 00:00:00 [facility] HPV9 2016-04-01 Completed [facility] 00:00:00 [facility] HPV9 2016-04-01 Completed [facility] 00:00:00 [facility] HPV9 2016-04-01 Completed [facility] 00:00:00 [facility] HPV9 2016-04-01 Completed [facility] 00:00:00 [facility] HPV9 2016-04-01 Completed [facility] 00:00:00 [facility] HPV9 2016-04-01 Completed [facility] 00:00:00 [facility] HPV9 2016-04-01 Completed [facility] 00:00:00 [facility] HPV9 2016-04-01 Completed [facility] 00:00:00 [facility] HPV9 2016-04-01 Completed [facility] 00:00:00 [facility] HPV9 2016-04-01 Completed [facility] 00:00:00 [facility] HPV9 2016-04-01 Completed [facility] 00:00:00 [facility] HPV9 2016-04-01 Completed [facility] 00:00:00 [facility] HPV9 2016-04-01 Completed [facility] 00:00:00 [facility] HPV9 2016-04-01 Completed [facility] 00:00:00 [facility] HPV9 2016-04-01 Completed [facility] 00:00:00 [facility] HPV9 2016-04-01 Completed [facility] 00:00:00 [facility] HPV9 2016-04-01 Completed [facility] 00:00:00 [facility] HPV9 2016-04-01 Completed [facility] 00:00:00 [facility] HPV9 2016-04-01 Completed [facility] 00:00:00 [facility] HPV9 2016-04-01 Completed [facility] 00:00:00 [facility] HPV9 2016-04-01 Completed [facility] 00:00:00 [facility] HPV9 2016-04-01 Completed [facility] 00:00:00 [facility] HPV9 2016-04-01 Completed [facility] 00:00:00 [facility] HPV9 2016-04-01 Completed [facility] 00:00:00 [facility] HPV9 2016-04-01 Completed [facility] 00:00:00 [facility] HPV9 2016-04-01 Completed [facility] 00:00:00 [facility] HPV9 2016-04-01 Completed [facility] 00:00:00 [facility] HPV9 2016-04-01 Completed [facility] 00:00:00 [facility] HPV9 2016-04-01 Completed [facility] 00:00:00 [facility] HPV9 2016-04-01 Completed [facility] 00:00:00 [facility] HPV9 2016-04-01 Completed [facility] 00:00:00 [facility] HPV9 2016-04-01 Completed [facility] 00:00:00 [facility] HPV9 2016-04-01 Completed [facility] 00:00:00 [facility] HPV9 2016-04-01 Completed [facility] 00:00:00 [facility] HPV9 2016-04-01 Completed [facility] 00:00:00 [facility] HPV9 2016-04-01 Completed [facility] 00:00:00 [facility] HPV9 2016-04-01 Completed [facility] 00:00:00 [facility] HPV9 2016-04-01 Completed [facility] 00:00:00 [facility] HPV9 2016-04-01 Completed [facility] 00:00:00 [facility] HPV9 2016-04-01 Completed [facility] 00:00:00 [facility] HPV9 2016-04-01 Completed [facility] 00:00:00 [facility] HPV9 2016-04-01 Completed [facility] 00:00:00 [facility] HPV9 2016-04-01 Completed [facility] 00:00:00 [facility] HPV9 2016-04-01 Completed [facility] 00:00:00 [facility] HPV9 2016-04-01 Completed [facility] 00:00:00 [facility] HPV9 2016-04-01 Completed [facility] 00:00:00 [facility] HPV9 2016-04-01 Completed [facility] 00:00:00 [facility] HPV9 2016-04-01 Completed [facility] 00:00:00 [facility] HPV9 2016-04-01 Completed [facility] 00:00:00 [facility] HPV9 2016-04-01 Completed [facility] 00:00:00 [facility] HPV9 2016-04-01 Completed [facility] 00:00:00 [facility] HPV9 2016-04-01 Completed [facility] 00:00:00 [facility] HPV9 2016-04-01 Completed [facility] 00:00:00 [facility] HPV9 2016-04-01 Completed [facility] 00:00:00 [facility] HPV9 2016-04-01 Completed [facility] 00:00:00 [facility] HPV9 2016-04-01 Completed [facility] 00:00:00 [facility] HPV9 2016-04-01 Completed [facility] 00:00:00 [facility] HPV9 2016-04-01 Completed [facility] 00:00:00 [facility] HPV9 2016-04-01 Completed [facility] 00:00:00 [facility] HPV9 2016-04-01 Completed [facility] 00:00:00 [facility] HPV9 2016-04-01 Completed [facility] 00:00:00 [facility] HPV9 2016-04-01 Completed [facility] 00:00:00 [facility] HPV9 2016-04-01 Completed [facility] 00:00:00 [facility] HPV9 2016-04-01 Completed [facility] 00:00:00 [facility] HPV9 2016-04-01 Completed [facility] 00:00:00 [facility] HPV9 2016-04-01 Completed [facility] 00:00:00 [facility] HPV9 2016-04-01 Completed [facility] 00:00:00 [facility] HPV9 2016-04-01 Completed [facility] 00:00:00 [facility] HPV9 2016-04-01 Completed [facility] 00:00:00 [facility] HPV9 2016-04-01 Completed [facility] 00:00:00 [facility] HPV9 2016-04-01 Completed [facility] 00:00:00 [facility] HPV9 2016-04-01 Completed [facility] 00:00:00 [facility] HPV9 2016-04-01 Completed [facility] 00:00:00 [facility] HPV9 2016-04-01 Completed [facility] 00:00:00 [facility] HPV9 2016-04-01 Completed [facility] 00:00:00 [facility] HPV9 2016-04-01 Completed [facility] 00:00:00 [facility] HPV9 2016-04-01 Completed [facility] 00:00:00 [facility] HPV9 2016-04-01 Completed [facility] 00:00:00 [facility] HPV9 2016-04-01 Completed [facility] 00:00:00 [facility] HPV9 2016-04-01 Completed [facility] 00:00:00 [facility] HPV9 2016-04-01 Completed [facility] 00:00:00 [facility] HPV9 2016-04-01 Completed [facility] 00:00:00 [facility] HPV9 2016-04-01 Completed [facility] 00:00:00 [facility] HPV9 2016-04-01 Completed [facility] 00:00:00 [facility] HPV9 2016-04-01 Completed [facility] 00:00:00 [facility] HPV9 2016-04-01 Completed [facility] 00:00:00 [facility] HPV9 2016-04-01 Completed [facility] 00:00:00 [facility] HPV9 2016-04-01 Completed [facility] 00:[facility]:00 [facility] HPV9 2016-04-01 Completed [facility] 00:00:00 [facility] HPV9 2016-04-01 Completed [facility] 00:00:00 [facility] HPV9 2016-04-01 Completed [facility] 00:00:00 [facility] HPV9 2016-04-01 Completed [facility] 00:00:00 [facility] HPV9 2016-04-01 Completed [facility] 00:00:00 [facility] HPV9 2016-04-01 Completed [facility] 00:00:00 [facility] HPV9 2016-04-01 Completed [facility] 00:00:00 [facility] HPV9 2016-04-01 Completed [facility] 00:00:00 [facility] HPV9 2016-04-01 Completed [facility] 00:00:00 [facility] HPV9 2016-04-01 Completed [facility] 00:00:00 [facility] HPV9 2016-04-01 Completed [facility] 00:00:00 [facility] HPV9 2016-04-01 Completed [facility] 00:00:00 [facility] HPV9 2016-04-01 Completed [facility] 00:00:00 [facility] HPV9 2016-04-01 Completed [facility] 00:00:00 [facility] HPV9 2016-04-01 Completed [facility] 00:00:00 [facility] HPV9 2016-04-01 Completed [facility] 00:00:00 [facility] HPV9 2016-04-01 Completed [facility] 00:00:00 [facility] HPV9 2016-04-01 Completed [facility] 00:00:00 [facility] HPV9 2016-04-01 Completed [facility] 00:00:00 [facility] HPV9 2016-04-01 Completed [facility] 00:00:00 [facility] HPV9 2016-04-01 Completed [facility] 00:00:00 [facility] HPV9 2016-04-01 Completed [facility] 00:00:00 [facility] HPV9 2016-04-01 Completed [facility] 00:00:00 [facility] HPV9 2016-04-01 Completed [facility] 00:00:00 [facility] HPV9 2016-04-01 Completed [facility] 00:00:00 [facility] HPV9 2016-04-01 Completed [facility] 00:00:00 [facility] HPV9 2016-04-01 Completed [facility] 00:00:00 [facility] HPV9 2016-04-01 Completed [facility] 00:00:00 [facility] HPV9 2016-04-01 Completed [facility] 00:00:00 [facility] HPV9 2016-04-01 Completed [facility] 00:00:00 [facility] HPV9 2016-04-01 Completed [facility] 00:00:00 [facility] HPV9 2016-04-01 Completed [facility] 00:00:00 [facility] HPV9 2016-04-01 Completed [facility] 00:00:00 [facility] HPV9 2016-04-01 Completed [facility] 00:00:00 [facility] HPV9 2016-04-01 Completed [facility] 00:00:00 [facility] HPV9 2016-04-01 Completed [facility] 00:00:00 [facility] HPV9 2016-04-01 Completed [facility] 00:00:00 [facility] HPV9 2016-04-01 Completed [facility] 00:00:00 [facility] HPV9 2016-04-01 Completed [facility] 00:00:00 [facility] HPV9 2016-04-01 Completed [facility] 00:00:00 [facility] HPV9 2016-04-01 Completed [facility] 00:00:00 [facility] HPV9 2016-04-01 Completed [facility] 00:00:00 [facility] HPV9 2016-04-01 Completed [facility] 00:00:00 [facility] HPV9 2016-04-01 Completed [facility] 00:00:00 [facility] HPV9 2016-04-01 Completed [facility] 00:00:00 [facility] HPV9 2016-04-01 Completed [facility] 00:00:00 [facility] HPV9 2016-04-01 Completed [facility] 00:00:00 [facility] HPV9 2016-04-01 Completed [facility] 00:00:00 [facility] HPV9 2016-04-01 Completed [facility] 00:00:00 [facility] HPV9 2016-04-01 Completed [facility] 00:00:00 [facility] HPV9 2016-04-01 Completed [facility] 00:00:00 [facility] HPV9 2016-04-01 Completed [facility] 00:00:00 [facility] HPV9 2016-04-01 Completed [facility] 00:00:00 [facility] HPV9 2016-04-01 Completed [facility] 00:00:00 [facility] HPV9 2016-04-01 Completed [facility] 00:00:00 [facility] HPV9 2016-04-01 Completed [facility] 00:00:00 [facility] HPV9 2016-04-01 Completed [facility] 00:00:00 [facility] HPV9 2016-04-01 Completed [facility] 00:00:00 [facility] HPV9 2015-11-18 Completed [facility] 00:00:00 [facility] HPV9 2015-11-18 Completed [facility] 00:00:00 [facility] HPV9 2015-11-18 Completed [facility] 00:00:00 [facility] HPV9 2015-11-18 Completed [facility] 00:00:00 [facility] HPV9 2015-11-18 Completed [facility] 00:00:00 [facility] HPV9 2015-11-18 Completed [facility] 00:00:00 [facility] HPV9 2015-11-18 Completed [facility] 00:00:00 [facility] HPV9 2015-11-18 Completed [facility] 00:00:00 [facility] HPV9 2015-11-18 Completed [facility] 00:00:00 [facility] HPV9 2015-11-18 Completed [facility] 00:00:00 [facility] HPV9 2015-11-18 Completed [facility] 00:00:00 [facility] HPV9 2015-11-18 Completed [facility] 00:00:00 [facility] HPV9 2015-11-18 Completed [facility] 00:00:00 [facility] HPV9 2015-11-18 Completed [facility] 00:00:00 [facility] HPV9 2015-11-18 Completed [facility] 00:00:00 [facility] HPV9 2015-11-18 Completed [facility] 00:00:00 [facility] HPV9 2015-11-18 Completed [facility] 00:00:00 [facility] HPV9 2015-11-18 Completed [facility] 00:00:00 [facility] HPV9 2015-11-18 Completed [facility] 00:00:00 [facility] HPV9 2015-11-18 Completed [facility] 00:00:00 [facility] HPV9 2015-11-18 Completed [facility] 00:00:00 [facility] HPV9 2015-11-18 Completed [facility] 00:00:00 [facility] HPV9 2015-11-18 Completed [facility] 00:00:00 [facility] HPV9 2015-11-18 Completed [facility] 00:00:00 [facility] HPV9 2015-11-18 Completed [facility] 00:00:00 [facility] HPV9 2015-11-18 Completed [facility] 00:00:00 [facility] HPV9 2015-11-18 Completed [facility] 00:00:00 [facility] HPV9 2015-11-18 Completed [facility] 00:00:00 [facility] HPV9 2015-11-18 Completed [facility] 00:00:00 [facility] HPV9 2015-11-18 Completed [facility] 00:00:00 [facility] HPV9 2015-11-18 Completed [facility] 00:00:00 [facility] HPV9 2015-11-18 Completed [facility] 00:00:00 [facility] HPV9 2015-11-18 Completed [facility] 00:00:00 [facility] HPV9 2015-11-18 Completed [facility] 00:00:00 [facility] HPV9 2015-11-18 Completed [facility] 00:00:00 [facility] HPV9 2015-11-18 Completed [facility] 00:00:00 [facility] HPV9 2015-11-18 Completed [facility] 00:00:00 [facility] HPV9 2015-11-18 Completed [facility] 00:00:00 [facility] HPV9 2015-11-18 Completed [facility] 00:00:00 [facility] HPV9 2015-11-18 Completed [facility] 00:00:00 [facility] HPV9 2015-11-18 Completed [facility] 00:00:00 [facility] HPV9 2015-11-18 Completed [facility] 00:00:00 [facility] HPV9 2015-11-18 Completed [facility] 00:00:00 [facility] HPV9 2015-11-18 Completed [facility] 00:00:00 [facility] HPV9 2015-11-18 Completed [facility] 00:00:00 [facility] HPV9 2015-11-18 Completed [facility] 00:00:00 [facility] HPV9 2015-11-18 Completed [facility] 00:00:00 [facility] HPV9 2015-11-18 Completed [facility] 00:00:00 [facility] HPV9 2015-11-18 Completed [facility] 00:00:00 [facility] HPV9 2015-11-18 Completed [facility] 00:00:00 [facility] HPV9 2015-11-18 Completed [facility] 00:00:00 [facility] HPV9 2015-11-18 Completed [facility] 00:00:00 [facility] HPV9 2015-11-18 Completed [facility] 00:00:00 [facility] HPV9 2015-11-18 Completed [facility] 00:00:00 [facility] HPV9 2015-11-18 Completed [facility] 00:00:00 [facility] HPV9 2015-11-18 Completed [facility] 00:00:00 [facility] HPV9 2015-11-18 Completed [facility] 00:00:00 [facility] HPV9 2015-11-18 Completed [facility] 00:00:00 [facility] HPV9 2015-11-18 Completed [facility] 00:00:00 [facility] HPV9 2015-11-18 Completed [facility] 00:00:00 [facility] HPV9 2015-11-18 Completed [facility] 00:00:00 [facility] HPV9 2015-11-18 Completed [facility] 00:00:00 [facility] HPV9 2015-11-18 Completed [facility] 00:00:00 [facility] HPV9 2015-11-18 Completed [facility] 00:00:00 [facility] HPV9 2015-11-18 Completed [facility] 00:00:00 [facility] HPV9 2015-11-18 Completed [facility] 00:00:00 [facility] HPV9 2015-11-18 Completed [facility] 00:00:00 [facility] HPV9 2015-11-18 Completed [facility] 00:00:00 [facility] HPV9 2015-11-18 Completed [facility] 00:00:00 [facility] HPV9 2015-11-18 Completed [facility] 00:00:00 [facility] HPV9 2015-11-18 Completed [facility] 00:00:00 [facility] HPV9 2015-11-18 Completed [facility] 00:00:00 [facility] HPV9 2015-11-18 Completed [facility] 00:00:00 [facility] HPV9 2015-11-18 Completed [facility] 00:00:00 [facility] HPV9 2015-11-18 Completed [facility] 00:00:00 [facility] HPV9 2015-11-18 Completed [facility] 00:00:00 [facility] HPV9 2015-11-18 Completed [facility] 00:00:00 [facility] HPV9 2015-11-18 Completed [facility] 00:00:00 [facility] HPV9 2015-11-18 Completed [facility] 00:00:00 [facility] HPV9 2015-11-18 Completed [facility] 00:00:00 [facility] HPV9 2015-11-18 Completed [facility] 00:00:00 [facility] HPV9 2015-11-18 Completed [facility] 00:00:00 [facility] HPV9 2015-11-18 Completed [facility] 00:00:00 [facility] HPV9 2015-11-18 Completed [facility] 00:00:00 [facility] HPV9 2015-11-18 Completed [facility] 00:00:00 [facility] HPV9 2015-11-18 Completed [facility] 00:00:00 [facility] HPV9 2015-11-18 Completed [facility] 00:00:00 [facility] HPV9 2015-11-18 Completed [facility] 00:00:00 [facility] HPV9 2015-11-18 Completed [facility] 00:00:00 [facility] HPV9 2015-11-18 Completed [facility] 00:00:00 [facility] HPV9 2015-11-18 Completed [facility] 00:00:00 [facility] HPV9 2015-11-18 Completed [facility] 00:00:00 [facility] HPV9 2015-11-18 Completed [facility] 00:00:00 [facility] HPV9 2015-11-18 Completed [facility] 00:00:00 [facility] HPV9 2015-11-18 Completed [facility] 00:00:00 [facility] HPV9 2015-11-18 Completed [facility] 00:00:00 [facility] HPV9 2015-11-18 Completed [facility] 00:00:00 [facility] HPV9 2015-11-18 Completed [facility] 00:00:00 [facility] HPV9 2015-11-18 Completed [facility] 00:00:00 [facility] HPV9 2015-11-18 Completed [facility] 00:00:00 [facility] HPV9 2015-11-18 Completed [facility] 00:00:00 [facility] HPV9 2015-11-18 Completed [facility] 00:00:00 [facility] HPV9 2015-11-18 Completed [facility] 00:00:00 [facility] HPV9 2015-11-18 Completed [facility] 00:00:00 [facility] HPV9 2015-11-18 Completed [facility] 00:00:00 [facility] HPV9 2015-11-18 Completed [facility] 00:00:00 [facility] HPV9 2015-11-18 Completed [facility] 00:00:00 [facility] HPV9 2015-11-18 Completed [facility] 00:00:00 [facility] HPV9 2015-11-18 Completed [facility] 00:00:00 [facility] HPV9 2015-11-18 Completed [facility] 00:00:00 [facility] HPV9 2015-11-18 Completed [facility] 00:00:00 [facility] HPV9 2015-11-18 Completed [facility] 00:00:00 [facility] HPV9 2015-11-18 Completed [facility] 00:00:00 [facility] HPV9 2015-11-18 Completed [facility] 00:00:00 [facility] HPV9 2015-11-18 Completed [facility] 00:00:00 [facility] HPV9 2015-11-18 Completed [facility] 00:00:00 [facility] HPV9 2015-11-18 Completed [facility] 00:00:00 [facility] HPV9 2015-11-18 Completed [facility] 00:00:00 [facility] HPV9 2015-11-18 Completed [facility] 00:00:00 [facility] HPV9 2015-11-18 Completed [facility] 00:00:00 [facility] HPV9 2015-11-18 Completed [facility] 00:00:00 [facility] HPV9 2015-11-18 Completed [facility] 00:00:00 [facility] HPV9 2015-11-18 Completed [facility] 00:00:00 [facility] HPV9 2015-11-18 Completed [facility] 00:00:00 [facility] HPV9 2015-11-18 Completed [facility] 00:00:00 [facility] HPV9 2015-11-18 Completed [facility] 00:00:00 [facility] HPV9 2015-11-18 Completed [facility] 00:00:00 [facility] HPV9 2015-11-18 Completed [facility] 00:00:00 [facility] HPV9 2015-11-18 Completed [facility] 00:00:00 [facility] HPV9 2015-11-18 Completed [facility] 00:00:00 [facility] HPV9 2015-11-18 Completed [facility] 00:00:00 [facility] HPV9 2015-11-18 Completed [facility] 00:00:00 [facility] HPV9 2015-11-18 Completed [facility] 00:00:00 [facility] HPV9 2015-11-18 Completed [facility] 00:00:00 [facility] HPV9 2015-11-18 Completed [facility] 00:00:00 [facility] HPV9 2015-11-18 Completed [facility] 00:00:00 [facility] HPV9 2015-11-18 Completed [facility] 00:00:00 [facility] HPV9 2015-11-18 Completed [facility] 00:00:00 [facility] HPV9 2015-11-18 Completed [facility] 00:00:00 [facility] HPV9 2015-11-18 Completed [facility] 00:00:00 [facility] HPV9 2015-11-18 Completed [facility] 00:00:00 [facility] HPV9 2015-11-18 Completed [facility] 00:00:00 [facility] HPV9 2015-11-18 Completed [facility] 00:00:00 [facility] HPV9 2015-11-18 Completed [facility] 00:00:00 [facility] HPV9 2015-11-18 Completed [facility] 00:00:00 [facility] HPV9 2015-11-18 Completed [facility] 00:00:00 [facility] HPV9 2015-11-18 Completed [facility] 00:00:00 [facility] HPV9 2015-11-18 Completed [facility] 00:00:00 [facility] HPV9 2015-11-18 Completed [facility] 00:00:00 [facility] HPV9 2015-11-18 Completed [facility] 00:00:00 [facility] HPV9 2015-11-18 Completed [facility] 00:00:00 [facility] HPV9 2015-11-18 Completed [facility] 00:00:00 [facility] HPV9 2015-11-18 Completed [facility] 00:00:00 [facility] HPV9 2015-11-18 Completed [facility] 00:00:00 [facility] HPV9 2015-11-18 Completed [facility] 00:00:00 [facility] HPV9 2015-11-18 Completed [facility] 00:00:00 [facility] HPV9 2015-11-18 Completed [facility] 00:00:00 [facility] HPV9 2015-11-18 Completed [facility] 00:00:00 [facility] HPV9 2015-11-18 Completed [facility] 00:00:00 [facility] HPV9 2015-11-18 Completed [facility] 00:00:00 [facility] HPV9 2015-11-18 Completed [facility] 00:00:00 [facility] HPV9 2015-11-18 Completed [facility] 00:00:00 [facility] HPV9 2015-11-18 Completed [facility] 00:00:00 [facility] HPV9 2015-11-18 Completed [facility] 00:00:00 [facility] HPV9 2015-11-18 Completed [facility] 00:00:00 [facility] HPV9 2015-11-18 Completed [facility] 00:00:00 [facility] HPV9 2015-11-18 Completed [facility] 00:00:00 [facility] HPV9 2015-11-18 Completed [facility] 00:00:00 [facility] HPV9 2015-11-18 Completed [facility] 00:00:00 [facility] HPV9 2015-11-18 Completed [facility] 00:00:00 [facility] HPV9 2015-11-18 Completed [facility] 00:00:00 [facility] HPV9 2015-11-18 Completed [facility] 00:00:00 [facility] HPV9 2015-11-18 Completed [facility] 00:00:00 [facility] HPV9 2015-11-18 Completed [facility] 00:00:00 [facility] HPV9 2015-11-18 Completed [facility] 00:00:00 [facility] HPV9 2015-11-18 Completed [facility] 00:00:00 [facility] HPV9 2015-11-18 Completed [facility] 00:00:00 [facility] HPV9 2015-11-18 Completed [facility] 00:00:00 [facility] HPV9 2015-11-18 Completed [facility] 00:00:00 [facility] HPV9 2015-11-18 Completed [facility] 00:00:00 [facility] HPV9 2015-11-18 Completed [facility] 00:00:00 [facility] HPV9 2015-11-18 Completed [facility] 00:00:00 [facility] HPV9 2015-11-18 Completed [facility] 00:00:00 [facility] HPV9 2015-11-18 Completed [facility] 00:00:00 [facility] HPV9 2015-11-18 Completed [facility] 00:00:00 [facility] HPV9 2015-11-18 Completed [facility] 00:00:00 [facility] HPV9 2015-11-18 Completed [facility] 00:00:00 [facility] HPV9 2015-11-18 Completed [facility] 00:00:00 [facility] HPV9 2015-11-18 Completed [facility] 00:00:00 [facility] HPV9 2015-11-18 Completed [facility] 00[facility]00:00 [facility] HPV9 2015-11-18 Completed [facility] 00:00:00 [facility] HPV9 2015-11-18 Completed [facility] 00:00:00 [facility] HPV9 2015-11-18 Completed [facility] 00:00:00 [facility] HPV9 2015-11-18 Completed [facility] 00:00:00 [facility] HPV9 2015-11-18 Completed [facility] [...] HPV 2015-05-23 Completed [facility] 00:00:00 [facility] HPV 2015-05-23 Completed [facility] 00:00:00 [facility] HPV 2015-05-23 Completed [facility] 00:00:00 [facility] HPV 2015-05-23 Completed [facility] 00:00:00 [facility] HPV 2015-05-23 Completed [facility] 00:00:00 [facility] HPV 2015-05-23 Completed [facility] 00:00:00 [facility] HPV 2015-05-23 Completed [facility] 00:00:00 [facility] HPV 2015-05-23 Completed [facility] 00:00:00 [facility] HPV 2015-05-23 Completed [facility] 00:00:00 [facility] HPV 2015-05-23 Completed [facility] 00[facility]00:00 [facility] HPV 2015-05-23 Completed [facility] 00:00:00 [facility] HPV 2015-05-23 Completed [facility] 00[facility]00:00 [facility] HPV 2015-05-23 Completed [facility] 00:00:00 [facility] HPV 2015-05-23 Completed [facility] 00:00:00 [facility] HPV 2015-05-23 Completed [facility] 00:00:00 [facility] HPV 2015-05-23 Completed [facility] 00:00:00 [facility] HPV 2015-05-23 Completed [facility] 00:00:00 [facility] HPV 2015-05-23 Completed [facility] 00:00:00 [facility] HPV 2015-05-23 Completed [facility] 00:00:00 [facility] HPV 2015-05-23 Completed [facility] 00:00:00 [facility] HPV 2015-05-23 Completed [facility] 00:00:00 [facility] HPV 2015-05-23 Completed [facility] 00:00:00 [facility] HPV 2015-05-23 Completed [facility] 00[facility]00:00 [facility] HPV 2015-05-23 Completed [facility] 00:00:00 [facility] HPV 2015-05-23 Completed [facility] [...] Completed [facility] Vaccine 00:00:00 [facility] Influenza Virus 2009-06-17 Completed [facility] Vaccine 00[facility]00:00 [facility] Influenza Virus 2009-06-17 Completed [facility] Vaccine 00:00:00 [facility] Influenza Virus 2009-06-17 Completed [facility] Vaccine 00:00:00 [facility] Influenza Virus 2009-06-17 Completed [facility] Vaccine 00:00:00 [facility] Influenza Virus 2009-06-17 Completed [facility] Vaccine 00:00:00 [facility] Influenza Virus 2009-06-17 Completed [facility] Vaccine 00:00:00 [facility] Influenza Virus 2009-06-17 Completed [facility] [...] Completed [facility] Vaccine 00:00:00 [facility] Influenza Virus 2009-06-17 Completed [facility] Vaccine 00:00:00 [facility] Influenza Virus 2009-06-17 Completed [facility] Vaccine 00:00:00 [facility] Influenza Virus 2009-06-17 Completed [facility] Vaccine 00:00:00 [facility] Influenza Virus 2009-06-17 Completed [facility] [...] Completed [facility] Vaccine 00:00:00 [facility] Influenza Virus 2009-06-17 Completed [facility] Vaccine 00:00:00 [facility] Influenza Virus 2009-06-17 Completed [facility] Vaccine 00:00:00 [facility] Influenza Virus 2009-06-17 Completed [facility] Vaccine 00:00:00 [facility] Influenza Virus 2009-06-17 Completed [facility] Vaccine 00:00:00 [facility] Influenza Virus 2009-06-17 Completed [facility] Vaccine 00:00:00 [facility] Influenza Virus 2009-06-17 Completed [facility] Vaccine 00:00:00 [facility] Influenza Virus 2009-06-17 Completed [facility] [...] Completed [facility] Vaccine 00:00:00 [facility] Influenza Virus 2009-06-17 Completed [facility] Vaccine 00:00:00 [facility] Influenza Virus 2009-06-17 Completed [facility] Vaccine 00:00:00 [facility] Influenza Virus 2009-06-17 Completed [facility] Vaccine 00:00:00 [facility] Influenza Virus 2009-06-17 Completed [facility] Vaccine 00:00:00 [facility] Influenza Virus 2009-06-17 Completed [facility] Vaccine 00:00:00 [facility] Influenza Virus 2009-06-17 Completed [facility] Vaccine 00:00:00 [facility] Influenza Virus 2009-06-17 Completed [facility] Vaccine 00:00:00 [facility] Influenza Virus 2009-06-17 Completed [facility] Vaccine 00:00:00 [facility] Influenza Virus 2009-06-17 Completed [facility] Vaccine 00:00:00 [facility] Influenza Virus 2009-06-17 Completed [facility] Vaccine 00:00:00 [facility] Influenza Virus 2009-06-17 Completed [facility] Vaccine 00:00:00 [facility] Influenza Virus 2009-06-17 Completed [facility] Vaccine 00:00:00 [facility] Influenza Virus 2009-06-17 Completed [facility] Vaccine 00:00:00 [facility] Influenza Virus 2009-06-17 Completed [facility] Vaccine 00:00:00 [facility] Influenza Virus 2009-06-17 Completed [facility] Vaccine 00:00:00 [facility] Influenza Virus 2009-06-17 Completed [facility] [...] Completed [facility] Vaccine 00:00:00 [facility] Influenza Virus 2009-06-17 Completed [facility] Vaccine 00:00:00 [facility] Influenza Virus 2009-06-17 Completed [facility] Vaccine 00:00:00 [facility] Influenza Virus 2009-06-17 Completed [facility] Vaccine 00:00:00 [facility] Influenza Virus 2009-06-17 Completed [facility] Vaccine 00:00:00 [facility] Influenza Virus 2009-06-17 Completed [facility] [...] [facility] of Vaccine - Whole 00:00:00 [facility] Influenza Virus 2005-06-18 Completed [facility] of Vaccine - Whole 00:00:00 [facility] Influenza Virus 2005-06-18 Completed [facility] of Vaccine - Whole 00:00:00 [facility] Influenza Virus 2005-06-18 Completed [facility] Vaccine - Whole 00:00:00 [facility] Influenza Virus 2005-06-18 Completed [facility] Vaccine - Whole 00:00:00 [facility] Influenza Virus 2005-06-18 Completed [facility] Vaccine - Whole 00:00:00 [facility] Influenza Virus 2005-06-18 Completed [facility] Vaccine - Whole 00:00:00 [facility] Influenza Virus 2005-06-18 Completed [facility] Vaccine - Whole 00:00:00 [facility] Influenza Virus 2005-06-18 Completed [facility] Vaccine - Whole 00:00:00 [facility] Influenza Virus 2005-06-18 Completed [facility] Vaccine - Whole 00:00:00 [facility] Influenza Virus 2005-06-18 Completed [facility] Vaccine - Whole 00:00:00 [facility] Influenza Virus 2005-06-18 Completed [facility] Vaccine - Whole 00:00:00 [facility] Influenza Virus 2005-06-18 Completed [facility] Vaccine - Whole 00:00:00 [facility] Influenza Virus 2005-06-18 Completed [facility] Vaccine - Whole 00:00:00 [facility] Influenza Virus 2005-06-18 Completed [facility] Vaccine - Whole 00:00:00 [facility] Influenza Virus 2005-06-18 Completed [facility] Vaccine - Whole 00:00:00 [facility] Influenza Virus 2005-06-18 Completed [facility] Vaccine - Whole 00:00:00 [facility] Influenza Virus 2005-06-18 Completed [facility] Vaccine - Whole 00:00:00 [facility] Influenza Virus 2005-06-18 Completed [facility] Vaccine - Whole 00:00:00 [facility] Influenza Virus 2005-06-18 Completed [facility] Vaccine - Whole 00:00:00 [facility] Influenza Virus 2005-06-18 Completed [facility] Vaccine - Whole 00:00:00 [facility] Influenza Virus 2005-06-18 Completed [facility] Vaccine - Whole 00:00:00 [facility] Influenza Virus 2005-06-18 Completed [facility] Vaccine - Whole 00:00:00 [facility] Influenza Virus 2005-06-18 Completed [facility] Vaccine - Whole 00:00:00 [facility] Influenza Virus 2005-06-18 Completed [facility] Vaccine - Whole 00:00:00 [facility] Influenza Virus 2005-06-18 Completed [facility] Vaccine - Whole 00:00:00 [facility] Influenza Virus 2005-06-18 Completed [facility] Vaccine - Whole 00:00:00 [facility] Influenza Virus 2005-06-18 Completed [facility] Vaccine - Whole 00:00:00 [facility] Influenza Virus 2005-06-18 Completed [facility] Vaccine - Whole 00:00:00 [facility] Influenza Virus 2005-06-18 Completed [facility] Vaccine - Whole 00:00:00 [facility] Influenza Virus 2005-06-18 Completed [facility] Vaccine - Whole 00:00:00 [facility] Influenza Virus 2005-06-18 Completed [facility] Vaccine - Whole 00:00:00 [facility] Influenza Virus 2005-06-18 Completed [facility] Vaccine - Whole 00:00:00 [facility] Influenza Virus 2005-06-18 Completed [facility] Vaccine - Whole 00:00:00 [facility] Influenza Virus 2005-06-18 Completed [facility] Vaccine - Whole 00:00:00 [facility] Influenza Virus 2005-06-18 Completed [facility] Vaccine - Whole 00:00:00 [facility] Influenza Virus 2005-06-18 Completed [facility] Vaccine - Whole 00:00:00 [facility] Influenza Virus 2005-06-18 Completed [facility] Vaccine - Whole 00:00:00 [facility] Influenza Virus 2005-06-18 Completed [facility] Vaccine - Whole 00:00:00 [facility] Influenza Virus 2005-06-18 Completed [facility] Vaccine - Whole 00:00:00 [facility] Influenza Virus 2005-06-18 Completed [facility] Vaccine - Whole 00:00:00 [facility] Influenza Virus 2005-06-18 Completed [facility] Vaccine - Whole 00:00:00 [facility] Influenza Virus 2005-06-18 Completed [facility] Vaccine - Whole 00:00:00 [facility] Influenza Virus 2005-06-18 Completed [facility] Vaccine - Whole 00:00:00 [facility] Influenza Virus 2005-06-18 Completed [facility] Vaccine - Whole 00:00:00 [facility] Influenza Virus 2005-06-18 Completed [facility] Vaccine - Whole 00:00:00 [facility] Influenza Virus 2005-06-18 Completed [facility] Vaccine - Whole 00:00:00 [facility] Influenza Virus 2005-06-18 Completed [facility] Vaccine - Whole 00:00:00 [facility] Influenza Virus 2005-06-18 Completed [facility] Vaccine - Whole 00:00:00 [facility] Influenza Virus 2005-06-18 Completed [facility] Vaccine - Whole 00:00:00 [facility] Influenza Virus 2005-06-18 Completed [facility] Vaccine - Whole 00:00:00 [facility] Influenza Virus 2005-06-18 Completed [facility] Vaccine - Whole 00:00:00 [facility] Influenza Virus 2005-06-18 Completed [facility] Vaccine - Whole 00:00:00 [facility] Influenza Virus 2005-06-18 Completed [facility] Vaccine - Whole 00:00:00 [facility] Influenza Virus 2005-05-07 Completed [facility] Vaccine - Whole 00:00:00 [facility] Influenza Virus 2005-05-07 Completed [facility] Vaccine - Whole 00:00:00 [facility] Influenza Virus 2005-05-07 Completed [facility] Vaccine - Whole 00:00:00 [facility] Influenza Virus 2005-05-07 Completed [facility] Vaccine - Whole 00:00:00 [facility] Influenza Virus 2005-05-07 Completed [facility] Vaccine - Whole 00:00:00 [facility] Influenza Virus 2005-05-07 Completed [facility] Vaccine - Whole 00:00:00 [facility] Influenza Virus 2005-05-07 Completed [facility] Vaccine - Whole 00:00:00 [facility] Influenza Virus 2005-05-07 Completed [facility] Vaccine - Whole 00:00:00 [facility] Influenza Virus 2005-05-07 Completed [facility] Vaccine - Whole 00:00:00 [facility] Influenza Virus 2005-05-07 Completed [facility] Vaccine - Whole 00:00:00 [facility] Influenza Virus 2005-05-07 Completed [facility] Vaccine - Whole 00:00:00 [facility] Influenza Virus 2005-05-07 Completed [facility] Vaccine - Whole 00:00:00 [facility] Influenza Virus 2005-05-07 Completed [facility] Vaccine - Whole 00:00:00 [facility] Influenza Virus 2005-05-07 Completed [facility] Vaccine - Whole 00:00:00 [facility] Influenza Virus 2005-05-07 Completed [facility] Vaccine - Whole 00:00:00 [facility] Influenza Virus 2005-05-07 Completed [facility] Vaccine - Whole 00:00:00 [facility] Influenza Virus 2005-05-07 Completed [facility] Vaccine - Whole 00:00:00 [facility] Influenza Virus 2005-05-07 Completed [facility] Vaccine - Whole 00:00:00 [facility] Influenza Virus 2005-05-07 Completed [facility] Vaccine - Whole 00:00:00 [facility] Influenza Virus 2005-05-07 Completed [facility] Vaccine - Whole 00:00:00 [facility] Influenza Virus 2005-05-07 Completed [facility] Vaccine - Whole 00:00:00 [facility] Influenza Virus 2005-05-07 Completed [facility] Vaccine - Whole 00:00:00 [facility] Influenza Virus 2005-05-07 Completed [facility] Vaccine - Whole 00:00:00 [facility] Influenza Virus 2005-05-07 Completed [facility] Vaccine - Whole 00:00:00 [facility] Influenza Virus 2005-05-07 Completed [facility] Vaccine - Whole 00:00:00 [facility] Influenza Virus 2005-05-07 Completed [facility] Vaccine - Whole 00:00:00 [facility] Influenza Virus 2005-05-07 Completed [facility] Vaccine - Whole 00:00:00 [facility] Influenza Virus 2005-05-07 Completed [facility] of Vaccine - Whole 00:00:00 [facility] Influenza Virus 2005-05-07 Completed [facility] of Vaccine - Whole 00:00:00 [facility] Influenza Virus 2005-05-07 Completed [facility] Vaccine - Whole 00:00:00 [facility] Influenza Virus 2005-05-07 Completed [facility] Vaccine - Whole 00:00:00 [facility] Influenza Virus 2005-05-07 Completed [facility] Vaccine - Whole 00:00:00 [facility] Influenza Virus 2005-05-07 Completed [facility] Vaccine - Whole 00:00:00 [facility] Influenza Virus 2005-05-07 Completed [facility] Vaccine - Whole 00:00:00 [facility] Influenza Virus 2005-05-07 Completed [facility] of Vaccine - Whole 00:00:00 [facility] Influenza Virus 2005-05-07 Completed [facility] of Vaccine - Whole 00:00:00 [facility] Influenza Virus 2005-05-07 Completed [facility] of Vaccine - Whole 00:00:00 [facility] Influenza Virus 2005-05-07 Completed [facility] Vaccine - Whole 00:00:00 [facility] Influenza Virus 2005-05-07 Completed [facility] Vaccine - Whole 00:00:00 [facility] Influenza Virus 2005-05-07 Completed [facility] Vaccine - Whole 00:00:00 [facility] Influenza Virus 2005-05-07 Completed [facility] of Vaccine - Whole 00:00:00 [facility] Influenza Virus 2005-05-07 Completed [facility] of Vaccine - Whole 00:00:00 [facility] Influenza Virus 2005-05-07 Completed [facility] of Vaccine - Whole 00:00:00 [facility] Influenza Virus 2005-05-07 Completed [facility] of Vaccine - Whole 00:00:00 [facility] Influenza Virus 2005-05-07 Completed [facility] of Vaccine - Whole 00:00:00 [facility] Influenza Virus 2005-05-07 Completed [facility] of Vaccine - Whole 00:00:00 [facility] Influenza Virus 2005-05-07 Completed [facility] of Vaccine - Whole 00:00:00 [facility] Influenza Virus 2005-05-07 Completed [facility] of Vaccine - Whole 00:00:00 [facility] Influenza Virus 2005-05-07 Completed [facility] of Vaccine - Whole 00:00:00 [facility] Influenza Virus 2005-05-07 Completed [facility] Vaccine - Whole 00:00:00 [facility] Influenza Virus 2005-05-07 Completed [facility] Vaccine - Whole 00:00:00 [facility] Influenza Virus 2005-05-07 Completed [facility] Vaccine - Whole 00:00:00 [facility] Influenza Virus 2005-05-07 Completed [facility] Vaccine - Whole 00:00:00 [facility] Influenza Virus 2005-05-07 Completed [facility] Vaccine - Whole 00:00:00 [facility] HIB 4 Dose Schedule 2004-01-31 Completed Unive rsity of 00:00:00 [facility] Hep B, Adol or Pedi 2004-01-31 Completed Unive rsity of Dosage 00:00:00 [facility] Pediarix (dtap/hep 2004-01-31 Completed Univer sity of B/ipv) 00:00:00 [facility] HIB 4 Dose Schedule 2004-01-31 Completed Unive rsity of 00:00:00 [facility] Hep B, Adol or Pedi 2004-01-31 Completed Unive rsity of Dosage 00:00:00 [facility] Pediarix (dtap/hep 2004-01-31 Completed Univer sity of B/ipv) 00:00:00 [facility] HIB 4 Dose Schedule 2004-01-31 Completed Unive rsity of 00:00:00 [facility] Hep B, Adol or Pedi 2004-01-31 Completed Unive rsity of Dosage 00:00:00 [facility] Pediarix (dtap/hep 2004-01-31 Completed Univer sity of B/ipv) 00:00:00 [facility] HIB 4 Dose Schedule 2004-01-31 Completed Unive rsity of 00:00:00 [facility] Hep B, Adol or Pedi 2004-01-31 Completed Unive rsity of Dosage 00:00:00 [facility] Pediarix (dtap/hep 2004-01-31 Completed Univer sity of B/ipv) 00:00:00 [facility] HIB 4 Dose Schedule 2004-01-31 Completed Unive rsity of 00:00:00 [facility] Hep B, Adol or Pedi 2004-01-31 Completed Unive rsity of Dosage 00:00:00 [facility] Pediarix (dtap/hep 2004-01-31 Completed Univer sity of B/ipv) 00:00:00 [facility] HIB 4 Dose Schedule 2004-01-31 Completed Unive rsity of 00:00:00 [facility] Hep B, Adol or Pedi 2004-01-31 Completed Unive rsity of Dosage 00:00:00 [facility] Pediarix (dtap/hep 2004-01-31 Completed Univer sity of B/ipv) 00:00:00 [facility] HIB 4 Dose Schedule 2004-01-31 [...] 2004-01-31 Completed Univer sity of B/ipv) 00:00:00 [facility] HIB 4 Dose Schedule 2004-01-31 Completed Unive rsity of 00:00:00 [facility] Hep B, Adol or Pedi 2004-01-31 Completed Unive rsity of Dosage 00:00:00 [facility] Pediarix (dtap/hep 2004-01-31 Completed Univer sity of B/ipv) 00:00:00 [facility] HIB 4 Dose Schedule 2004-01-31 [...] Schedule 2004-01-31 Completed Unive rsity of 00:00:00 [facility] Hep B, Adol or Pedi 2004-01-31 Completed Unive rsity of Dosage 00:00:00 [facility] Pediarix (dtap/hep 2004-01-31 Completed Univer sity of B/ipv) 00:00:00 [facility] HIB 4 Dose Schedule 2004-01-31 Completed Unive rsity of 00:00:00 [facility] Hep B, Adol or Pedi [...] 2004-01-31 Completed Univer sity of B/ipv) 00:00:00 [facility] HIB 4 Dose Schedule 2004-01-31 [...] 2004-01-31 Completed Univer sity of B/ipv) 00:00:00 [facility] HIB 4 Dose Schedule 2004-01-31 Completed Unive rsity of 00:00:00 [facility] Hep B, Adol or Pedi 2004-01-31 Completed Unive rsity of Dosage 00:00:00 [facility] Pediarix (dtap/hep 2004-01-31 Completed Univer sity of B/ipv) 00:00:00 [facility] HIB 4 Dose Schedule 2004-01-31 Completed Unive rsity of 00:00:00 [facility] Hep B, Adol or Pedi 2004-01-31 Completed Unive rsity of Dosage 00:00:00 [facility] Pediarix (dtap/hep 2004-01-31 Completed Univer sity of B/ipv) 00:00:00 [facility] HIB 4 Dose Schedule 2004-01-31 Completed Unive rsity of 00:00:00 [facility] Hep B, Adol or Pedi 2004-01-31 Completed Unive rsity of Dosage 00:00:00 [facility] Pediarix (dtap/hep 2004-01-31 Completed Univer sity of B/ipv) 00:00:00 [facility] HIB 4 Dose Schedule 2004-01-31 Completed Unive rsity of 00:00:00 [facility] Hep B, Adol or Pedi 2004-01-31 Completed Unive rsity of Dosage 00:00:00 [facility] Pediarix (dtap/hep 2004-01-31 Completed Univer sity of B/ipv) 00:00:00 [facility] HIB 4 Dose Schedule 2004-01-31 Completed Unive rsity of 00:00:00 [facility] Hep B, Adol or Pedi 2004-01-31 Completed Unive rsity of Dosage 00:00:00 [facility] Pediarix (dtap/hep 2004-01-31 Completed Univer sity of B/ipv) 00:00:00 [facility] HIB 4 Dose Schedule 2004-01-31 [...] Schedule 2004-01-31 Completed Unive rsity of 00:00:00 [facility] Hep B, Adol or Pedi [...] 2004-01-31 Completed Univer sity of B/ipv) 00:00:00 [facility] HIB 4 Dose Schedule 2004-01-31 Completed Unive rsity of 00:00:00 [facility] Hep B, Adol or Pedi 2004-01-31 Completed Unive rsity of Dosage 00:00:00 [facility] Pediarix (dtap/hep 2004-01-31 Completed Univer sity of B/ipv) 00:00:00 [facility] HIB 4 Dose Schedule 2004-01-31 Completed Unive rsity of 00:00:00 [facility] Hep B, Adol or Pedi 2004-01-31 Completed Unive rsity of Dosage 00:00:00 [facility] Pediarix (dtap/hep 2004-01-31 Completed Univer sity of B/ipv) 00:00:00 [facility] HIB 4 Dose Schedule 2004-01-31 Completed Unive rsity of 00:00:00 [facility] Hep B, Adol or Pedi 2004-01-31 Completed Unive rsity of Dosage 00:00:00 [facility] Pediarix (dtap/hep 2004-01-31 Completed Univer sity of B/ipv) 00:00:00 [facility] HIB 4 Dose Schedule 2004-01-31 Completed Unive rsity of 00:00:00 [facility] Hep B, Adol or Pedi 2004-01-31 Completed Unive rsity of Dosage 00:00:00 [facility] Pediarix (dtap/hep 2004-01-31 Completed Univer sity of B/ipv) 00:00:00 [facility] HIB 4 Dose Schedule 2004-01-31 Completed Unive rsity of 00:00:00 [facility] Hep B, Adol or Pedi 2004-01-31 Completed Unive rsity of Dosage 00:00:00 [facility] Pediarix (dtap/hep 2004-01-31 Completed Univer sity of B/ipv) 00:00:00 [facility] HIB 4 Dose Schedule 2004-01-31 Completed Unive rsity of 00:00:00 [facility] Hep B, Adol or Pedi 2004-01-31 Completed Unive rsity of Dosage 00:00:00 [facility] Pediarix (dtap/hep 2004-01-31 Completed Univer sity of B/ipv) 00:00:00 [facility] HIB 4 Dose Schedule 2004-01-31 Completed Unive rsity of 00:00:00 [facility] Hep B, Adol or Pedi 2004-01-31 Completed Unive rsity of Dosage 00:00:00 [facility] Pediarix (dtap/hep 2004-01-31 Completed Univer sity of B/ipv) 00:00:00 [facility] HIB 4 Dose Schedule 2004-01-31 Completed Unive [...] 2004-01-31 Completed Univer sity of B/ipv) 00:00:00 [facility] HIB 4 Dose Schedule 2004-01-31 Completed Unive rsity of 00:00:00 [facility] Hep B, Adol or Pedi 2004-01-31 Completed Unive rsity of Dosage 00:00:00 [facility] Pediarix (dtap/hep 2004-01-31 Completed Univer sity of B/ipv) 00:00:00 [facility] HIB 4 Dose Schedule 2004-01-31 Completed Unive rsity of 00:00:00 [facility] Hep B, Adol or Pedi 2004-01-31 Completed Unive rsity of Dosage 00:00:00 [facility] Pediarix (dtap/hep 2004-01-31 Completed Univer sity of B/ipv) 00:00:00 [facility] HIB 4 Dose Schedule 2004-01-31 Completed [facility] rsity of 00:00:00 [facility] Hep B, Adol or Pedi 2004-01-31 Completed Unive rsity of Dosage 00:00:00 [facility] Pediarix (dtap/hep 2004-01-31 Completed Univer sity of B/ipv) 00:00:00 [facility] HIB 4 Dose Schedule 2004-01-31 Completed Unive rsity of 00:00:00 [facility] Hep B, Adol or Pedi 2004-01-31 Completed Unive rsity of Dosage 00:00:00 [facility] Pediarix (dtap/hep 2004-01-31 Completed Univer sity of B/ipv) 00:00:00 [facility] HIB 4 Dose Schedule 2004-01-31 [...] 2004-01-31 Completed Univer sity of B/ipv) 00:00:00 [facility] HIB 4 Dose Schedule 2004-01-31 Completed Unive rsity of 00:00:00 [facility] Hep B, Adol or Pedi 2004-01-31 Completed Unive rsity of Dosage 00:00:00 [facility] Pediarix (dtap/hep 2004-01-31 Completed Univer sity of B/ipv) 00:00:00 [facility] HIB 4 Dose Schedule 2004-01-31 Completed [facility]ive rsity of 00:00:00 [facility] Hep B, Adol or Pedi 2004-01-31 Completed Unive rsity of Dosage 00:00:00 [facility] Pediarix (dtap/hep 2004-01-31 Completed Univer sity of B/ipv) 00:00:00 [facility] HIB 4 Dose Schedule 2004-01-31 Completed Unive rsity of 00:00:00 [facility] Hep B, Adol or Pedi 2004-01-31 Completed Unive rsity of Dosage 00:00:00 [facility] Pediarix (dtap/hep 2004-01-31 Completed Univer sity of B/ipv) 00:00:00 [facility] HIB 4 Dose Schedule 2004-01-31 Completed Unive rsity of 00:00:00 [facility] Hep B, Adol or Pedi 2004-01-31 Completed Unive rsity of Dosage 00:00:00 [facility] Pediarix (dtap/hep 2004-01-31 Completed Univer sity of B/ipv) 00:00:00 [facility] HIB 4 Dose Schedule 2004-01-31 Completed Unive rsity of 00:00:00 [facility] Hep B, Adol or Pedi 2004-01-31 Completed Unive rsity of Dosage 00:00:00 [facility] HIB 4 Dose Schedule 2004-01-31 Completed Unive rsity of 00:00:00 [facility] Hep B, Adol or Pedi 2004-01-31 Completed Unive rsity of Dosage 00:00:00 [facility] Pediarix (dtap/hep 2004-01-31 Completed Univer sity of B/ipv) 00:00:00 [facility] Pediarix (dtap/hep 2004-01-31 Completed Univer sity of B/ipv) 00:00:00 [facility] HIB 4 Dose Schedule 2004-01-31 Completed Unive rsity of 00:00:00 [facility] Hep B, Adol or Pedi 2004-01-31 Completed Unive rsity of Dosage 00:00:00 [facility] Pediarix (dtap/hep 2004-01-31 Completed Univer sity of B/ipv) 00:00:00 [facility] Vital Signs Vital Name Observation Time Observation Value Comments Source Body weight 2023-03-18 18:27:00 83.915 kg [facility] BMI 2023-03-18 18:27:00 28.13 kg/m2 [facility] Systolic blood 2023-03-18 18:00:00 133 mm[Hg] Univer [facility]ity of pressure [facility] Diastolic blood 2023-03-18 18:00:00 86 mm[Hg] Unive [facility]ity of pressure [facility] Heart rate 2023-03-18 18:00:00 95 /min [facility] Body temperature 2023-03-18 18:00:00 37 [place] [facility] Respiratory rate 2023-03-18 18:00:00 16 /min [facility] Body height 2023-03-18 18:00:00 172.7 cm [facility] Oxygen saturation in 2023-03-18 18:00:00 99 /min [facility] Arterial blood by [facility] Pulse oximetry [facility] Systolic blood 2023-03-10 01:30:00 123 mm[Hg] Univer [facility]ity of pressure [facility] Diastolic blood 2023-03-10 01:30:00 84 mm[Hg] Unive rsity of pressure [facility] Heart rate 2023-03-10 01:30:00 76 /min [facility] Respiratory rate 2023-03-10 01:30:00 18 /min [facility] Oxygen saturation in 2023-03-10 01:30:00 99 /min [facility] Arterial blood by [facility] Pulse oximetry Branch Body temperature 2023-03-09 21:54:00 37 [place] [facility] [place] [facility] Body weight 2023-03-09 21:54:00 83.915 kg [facility] [place] [facility] BMI 2023-03-09 21:54:00 28.13 kg/m2 [facility] Systolic blood 2023-03-04 00:00:00 121 mm[Hg] [facility] Diastolic blood 2023-03-04 00:00:00 81 mm[Hg] [facility] [place] [facility] Heart rate 2023-03-04 00:00:00 86 /min [facility] [place] [facility] Respiratory rate 2023-03-04 00:00:00 20 /min [facility] Oxygen saturation in 2023-03-04 00:00:00 95 /min [facility] Arterial blood by [facility] Pulse oxim[facility] Body temperature 2023-03-03 18:40:00 36.72 [place] [facility] Body height 2023-03-03 18:40:00 172.7 cm [facility] Body weight 2023-03-03 18:40:00 83.915 kg [facility] BMI 2023-03-03 18:40:00 28.13 kg/m2 [facility] Body height 2023-03-02 18:20:00 172.7 cm [facility] Body weight 2023-03-02 18:20:00 82.555 kg [facility] BMI 2023-03-02 18:20:00 27.67 kg/m2 [facility] Systolic blood 2023-02-23 14:45:00 125 mm[Hg] [facility] Diastolic blood 2023-02-23 14:45:00 84 mm[Hg] [facility] Respiratory rate 2023-02-23 14:45:00 19 /min [facility] Oxygen saturation in 2023-02-23 14:45:00 94 /min [facility] Arterial blood by [facility] Pulse oxim[facility] Systolic blood 2023-02-23 14:45:00 125 mm[Hg] [facility] Diastolic blood 2023-02-23 14:45:00 84 mm[Hg] [facility] Respiratory rate 2023-02-23 14:45:00 19 /min [facility] Oxygen saturation in 2023-02-23 14:45:00 94 /min [facility] Arterial blood by [facility] Pulse oxim[facility] Systolic blood 2023-02-22 15:10:00 122 mm[Hg] [facility] Diastolic blood 2023-02-22 15:10:00 79 mm[Hg] [facility] Heart rate 2023-02-22 15:10:00 73 /min [facility] Respiratory rate 2023-02-22 15:10:00 19 /min [facility] Body height 2023-02-22 15:10:00 172.7 cm [facility] Body weight 2023-02-22 15:10:00 82.872 kg [facility] BMI 2023-02-22 15:10:00 27.78 kg/m2 [facility] Oxygen saturation in 2023-02-22 15:10:00 97 /min [facility] Arterial blood by [facility] P[facility] o[facility] Systolic blood 2023-02-09 19:28:00 120 mm[Hg] [facility] Diastolic blood 2023-02-09 19:28:00 81 mm[Hg] [facility] Heart rate 2023-02-09 19:28:00 80 /min [facility] Body height 2023-02-09 19:28:00 172.7 cm [facility] Body weight 2023-02-09 19:28:00 84.55 kg [facility] BMI 2023-02-09 19:28:00 28.34 kg/m2 [facility] Systolic blood 2023-02-01 18:22:00 134 mm[Hg] [facility] Diastolic blood 2023-02-01 18:22:00 84 mm[Hg] [facility] Heart rate 2023-02-01 18:22:00 85 /min [facility] Body height 2023-02-01 18:22:00 172.7 cm [facility] Body weight 2023-02-01 18:22:00 83.961 kg [facility] BMI 2023-02-01 18:22:00 28.14 kg/m2 [facility] Systolic blood 2023-02-01 06:44:00 131 mm[Hg] [facility] Diastolic blood 2023-02-01 06:44:00 78 mm[Hg] [facility] Heart rate 2023-02-01 06:44:00 96 /min [facility] Respiratory rate 2023-02-01 06:44:00 22 /min [facility] Oxygen saturation in 2023-02-01 06:44:00 98 /min [facility] Arterial blood by [facility] Pulse oxim[facility] Body temperature 2023-02-01 03:25:00 36.78 [place] [facility] [place] [facility] Body height 2023-02-01 03:25:00 172.7 cm [facility] Body weight 2023-02-01 03:25:00 83.915 kg [facility] BMI 2023-02-01 03:25:00 28.13 kg/m2 [facility] Systolic blood 2023-01-28 20:10:00 130 mm[Hg] [facility] Diastolic blood 2023-01-28 20:10:00 83 mm[Hg] [facility] Heart rate 2023-01-28 20:10:00 78 /min [facility] Body height 2023-01-28 20:10:00 172.7 cm [facility] Body weight 2023-01-28 20:10:00 84.959 kg [facility] BMI 2023-01-28 20:10:00 28.48 kg/m2 [facility] Oxygen saturation in 2023-01-28 20:10:00 100 /min [facility]ial blood by [place] [facility] Systolic blood 2023-01-21 02:45:00 124 mm[Hg] [facility] Diastolic blood 2023-01-21 02:45:00 84 mm[Hg] [facility] Heart rate 2023-01-21 02:45:00 87 /min [facility] Body temperature 2023-01-21 02:45:00 37.11 [place] [facility] Respiratory rate 2023-01-21 02:45:00 16 /min [facility] Body height 2023-01-21 02:45:00 172.7 cm [facility] Body weight 2023-01-21 02:45:00 83.915 kg [facility] BMI 2023-01-21 02:45:00 28.13 kg/m2 [facility] Oxygen saturation in 2023-01-21 02:45:00 98 /min [facility] Arterial blood by [email or web address] Pulse oxim[facility] Systolic blood 2023-01-18 17:57:00 111 mm[Hg] [facility] Diastolic blood 2023-01-18 17:57:00 74 mm[Hg] [facility] Respiratory rate 2023-01-18 17:57:00 16 /min [facility] Oxygen saturation in 2023-01-18 17:57:00 99 /min [facility] Arterial blood by [facility] Pulse oxim[facility] Body temperature 2023-01-18 17:16:00 36.22 [place] [facility] Heart rate 2023-01-18 16:40:00 67 /min [facility] Systolic blood 2023-01-18 17:16:00 106 mm[Hg] [facility] Diastolic blood 2023-01-18 17:16:00 63 mm[Hg] [facility] Body temperature 2023-01-18 17:16:00 36.22 [place] [facility] Respiratory rate 2023-01-18 17:16:00 15 /min [facility] [place] [facility] Oxygen saturation in 2023-01-18 17:16:00 98 /min [facility] Arterial blood by [facility] Pulse o[facility] Heart rate 2023-01-18 16:40:00 67 /min [facility] Systolic blood 2023-01-13 18:00:00 124 mm[Hg] [facility] Diastolic blood 2023-01-13 18:00:00 81 mm[Hg] [facility] Heart rate 2023-01-13 18:00:00 88 /min [facility] Body height 2023-01-13 18:00:00 172.7 cm [facility] Body weight 2023-01-13 18:00:00 83.734 kg [facility] BMI 2023-01-13 18:00:00 28.07 kg/m2 [facility] Systolic blood 2023-01-08 19:52:00 146 mm[Hg] [facility] Diastolic blood 2023-01-08 19:52:00 90 mm[Hg] [facility] Heart rate 2023-01-08 19:52:00 89 /min [facility] Body temperature 2023-01-08 19:52:00 37.22 [place] [facility] Respiratory rate 2023-01-08 19:52:00 22 /min [facility] Body height 2023-01-08 19:52:00 172.7 cm [facility] Body weight 2023-01-08 19:52:00 83.915 kg [facility] BMI 2023-01-08 19:52:00 28.13 kg/m2 [facility] Oxygen saturation in 2023-01-08 19:52:00 100 /min [facility] Arterial blood by [facility]rie Pulse oximetry Branch Systolic blood 2022-12-21 13:55:00 137 mm[Hg] [facility] Diastolic blood 2022-12-21 13:55:00 85 mm[Hg] [facility] Heart rate 2022-12-21 13:55:00 83 /min [facility] Body height 2022-12-21 13:55:00 172.7 cm [facility] Body weight 2022-12-21 13:55:00 84.732 kg [facility] [place] [facility] BMI 2022-12-21 13:55:00 28.40 kg/m2 [facility] Oxygen saturation in 2022-12-21 13:55:00 97 /min [facility] Arterial blood by [facility] Pulse oxim[facility] Systolic blood 2022-12-07 02:48:00 132 mm[Hg] [facility] Diastolic blood 2022-12-07 02:48:00 88 mm[Hg] [facility] Heart rate 2022-12-07 02:48:00 84 /min [facility] Body temperature 2022-12-07 02:48:00 37.22 [place] [facility] Respiratory rate 2022-12-07 02:48:00 18 /min [facility] Body height 2022-12-07 02:48:00 170.2 cm [facility] Body weight 2022-12-07 02:48:00 83.915 kg [facility] BMI 2022-12-07 02:48:00 28.98 kg/m2 [facility] Oxygen saturation in 2022-12-07 02:48:00 98 /min [facility] Arterial blood by [facility] Pulse oxim[facility] Branch Systolic blood 2022-12-03 17:55:00 124 mm[Hg] [facility]iver [facility]ity of pressure [facility] Diastolic blood 2022-12-03 17:55:00 77 mm[Hg] Unive rsity of pressure [facility] Heart rate 2022-12-03 17:55:00 78 /min [facility] Body temperature 2022-12-03 17:55:00 36 [place] [facility] Body height 2022-12-03 17:55:00 172.7 cm [facility] Body weight 2022-12-03 17:55:00 85.049 kg [facility] BMI 2022-12-03 17:55:00 28.51 kg/m2 [facility] Body height 2022-11-26 18:04:00 172.7 cm [facility] Body weight 2022-11-26 18:04:00 83.915 kg [facility] BMI 2022-11-26 18:04:00 28.13 kg/m2 [facility] Body mass index 2022-11-26 18:04:00 91.75 % Unive rsity of (BMI) [Percentile] [facility] ica Per age and sex Branch Systolic blood 2022-11-19 16:10:00 135 mm[Hg] Univer sity of pressure [facility] Diastolic blood 2022-11-19 16:10:00 88 mm[Hg] Unive rsity of pressure [facility] Heart rate 2022-11-19 16:10:00 80 /min [facility] Body height 2022-11-19 16:10:00 172.7 cm [facility] Body weight 2022-11-19 16:10:00 86.047 kg [facility] BMI 2022-11-19 16:10:00 28.84 kg/m2 [facility] Body mass index 2022-11-19 16:10:00 93.48 % Unive rsity of (BMI) [Percentile] [place] [facility] Per age and sex Branch Oxygen saturation in 2022-11-19 16:10:00 97 /min [facility]terial blood by [place] [facility] Systolic blood 2022-11-17 17:53:00 101 mm[Hg] [facility] Diastolic blood 2022-11-17 17:53:00 63 mm[Hg] [facility] Heart rate 2022-11-17 17:53:00 81 /min [facility] [place] [facility] Body temperature 2022-11-17 17:53:00 36.5 [place] [facility] Body height 2022-11-17 17:53:00 172.7 cm [facility] [place] [facility] Body weight 2022-11-17 17:53:00 86.183 kg [facility] [place] [facility] BMI 2022-11-17 17:53:00 28.89 kg/m2 [facility] Body mass index 2022-11-17 17:53:00 93.59 % Unive rsity of (BMI) [Percentile] [place] [facility] Per age and sex Branch Systolic blood 2022-11-16 14:15:00 127 mm[Hg] Univer sity of pressure [facility] Diastolic blood 2022-11-16 14:15:00 78 mm[Hg] [facility] [place] [facility] Heart rate 2022-11-16 14:15:00 78 /min [facility] Respiratory rate 2022-11-16 14:15:00 19 /min [facility] Body height 2022-11-16 14:15:00 172.7 cm [facility] Body weight 2022-11-16 14:15:00 86.274 kg [facility] BMI 2022-11-16 14:15:00 28.92 kg/m2 [facility] Body mass index 2022-11-16 14:15:00 93.66 % Unive rsity of (BMI) [Percentile] [place] [facility] Per age and sex Branch Oxygen saturation in 2022-11-16 14:15:00 96 /min [facility] Arterial blood by [place] [facility] Heart rate 2022-11-13 05:05:00 86 /min [facility] Respiratory rate 2022-11-13 05:05:00 16 /min [facility] Oxygen saturation in 2022-11-13 05:05:00 100 /min [facility] Arterial blood by [facility] Pulse oxim[facility] Systolic blood 2022-11-13 02:41:00 124 mm[Hg] [facility] Diastolic blood 2022-11-13 02:41:00 85 mm[Hg] [facility] Body temperature 2022-11-13 02:41:00 37.11 [place] [facility] Body height 2022-11-13 02:41:00 172.7 cm [facility] Body weight 2022-11-13 02:41:00 85.73 kg [facility] BMI 2022-11-13 02:41:00 28.74 kg/m2 [facility] Body mass index 2022-11-13 02:41:00 93.30 % Unive rsity of (BMI) [Percentile] [place] [facility] Per age and sex Branch Systolic blood 2022-11-03 14:32:00 127 mm[Hg] [facility] Diastolic blood 2022-11-03 14:32:00 82 mm[Hg] [facility] Heart rate 2022-11-03 14:32:00 87 /min [facility] Body temperature 2022-11-03 14:32:00 36.83 [place] [facility] Respiratory rate 2022-11-03 14:32:00 18 /min [facility] Body height 2022-11-03 14:32:00 172.7 cm [facility] Body weight 2022-11-03 14:32:00 85.322 kg [facility] BMI 2022-11-03 14:32:00 28.60 kg/m2 [facility] Body mass index 2022-11-03 14:32:00 93.03 % Unive rsity of (BMI) [Percentile] [place] [facility] Per age and sex Branch Oxygen saturation in 2022-11-03 14:32:00 98 /min [facility] Arterial blood by [facility] Pulse oxim[facility] Systolic blood 2022-10-29 12:12:00 113 mm[Hg] [facility] Diastolic blood 2022-10-29 12:12:00 68 mm[Hg] Unive rsity of pressure [facility] Heart rate 2022-10-29 12:12:00 98 /min [facility] [place] [facility] Body temperature 2022-10-29 12:12:00 36.83 [place] [facility] Respiratory rate 2022-10-29 12:12:00 15 /min [facility] Oxygen saturation in 2022-10-29 12:12:00 97 /min [facility] Arterial blood by [facility] o[facility] Body weight 2022-10-29 07:58:00 83.915 kg [facility] [place] [facility] BMI 2022-10-29 07:58:00 28.13 kg/m2 [facility] [place] [facility] Body mass index 2022-10-29 07:58:00 91.90 % Unive rsity of (BMI) [Percentile] [facility] ica Per age and sex Branch Systolic blood 2022-10-28 02:00:00 128 mm[Hg] Univer sity of pressure [facility] Diastolic blood 2022-10-28 02:00:00 77 mm[Hg] Unive rsity of pressure [facility] Heart rate 2022-10-28 02:00:00 71 /min [facility] Respiratory rate 2022-10-28 02:00:00 17 /min [facility] [place] [facility] Oxygen saturation in 2022-10-28 02:00:00 97 /min [facility] Arterial blood by [facility] P[facility] oxim[facility] Body temperature 2022-10-28 00:46:00 36.89 [place] [facility] Body height 2022-10-28 00:46:00 172.7 cm [facility] [place] [facility] Body weight 2022-10-28 00:46:00 83.915 kg [facility] BMI 2022-10-28 00:46:00 28.13 kg/m2 [facility] [place] [facility] Body mass index 2022-10-28 00:46:00 91.92 % Unive rsity of (BMI) [Percentile] [place] [facility] Per age and sex Branch Systolic blood 2022-10-20 22:00:00 116 mm[Hg] [facility] Diastolic blood 2022-10-20 22:00:00 81 mm[Hg] [facility] of [facility] Heart rate 2022-10-20 22:00:00 91 /min [facility] Respiratory rate 2022-10-20 22:00:00 16 /min [facility] Oxygen saturation in 2022-10-20 22:00:00 98 /min [facility] Arterial blood by [email or web address] Pulse oxim[facility] Body temperature 2022-10-20 19:24:00 37.22 [place] [facility] Body height 2022-10-20 19:24:00 172.7 cm [facility] Body weight 2022-10-20 19:24:00 83.915 kg [facility] BMI 2022-10-20 19:24:00 28.13 kg/m2 [facility] Body mass index 2022-10-20 19:24:00 91.95 % Unive rsity of (BMI) [Percentile] [place] [facility] Per age and sex Branch Systolic blood 2022-10-09 06:00:00 123 mm[Hg] [facility] Diastolic blood 2022-10-09 06:00:00 74 mm[Hg] [facility]ity of [facility] Heart rate 2022-10-09 06:00:00 74 /min [facility] Respiratory rate 2022-10-09 06:00:00 16 /min [facility] Oxygen saturation in 2022-10-09 06:00:00 96 /min [facility] Arterial blood by [email or web address] P[facility] o[facility] Body temperature 2022-10-09 03:45:00 37.11 [place] [facility] Body height 2022-10-09 03:45:00 172.7 cm [facility] Body weight 2022-10-09 03:45:00 83.099 kg [facility] BMI 2022-10-09 03:45:00 27.86 kg/m2 [facility] Body mass index 2022-10-09 03:45:00 91.28 % Unive rsity of (BMI) [Percentile] [place] [facility] Per age and sex Branch Systolic blood 2022-09-15 13:33:00 125 mm[Hg] Univer sity of pressure [facility] Diastolic blood 2022-09-15 13:33:00 84 mm[Hg] Unive rsity of pressure [facility] Heart rate 2022-09-15 13:33:00 78 /min [facility] Body temperature 2022-09-15 13:33:00 36.78 [place] [facility] Body height 2022-09-15 13:33:00 170.2 cm [facility] Body weight 2022-09-15 13:33:00 83.825 kg [facility] BMI 2022-09-15 13:33:00 28.94 kg/m2 [facility] Body mass index 2022-09-15 13:33:00 93.96 % Unive rsity of (BMI) [Percentile] [place] [facility] Per age and sex Branch Systolic blood 2022-08-19 14:06:00 127 mm[Hg] Univer sity of pressure [facility] Diastolic blood 2022-08-19 14:06:00 85 mm[Hg] Unive rsity of pressure [facility] Heart rate 2022-08-19 14:06:00 93 /min [facility] [place] [facility] Body height 2022-08-19 14:06:00 170.2 cm [facility] [place] [facility] Body weight 2022-08-19 14:06:00 83.19 kg [facility] [place] [facility] BMI 2022-08-19 14:06:00 28.72 kg/m2 [facility] Body mass index 2022-08-19 14:06:00 93.64 % Unive rsity of (BMI) [Percentile] [place] [facility] Per age and sex Branch Oxygen saturation in 2022-08-19 14:06:00 97 /min [facility] Arterial blood by [facility] Pulse oxim[facility] Systolic blood 2022-08-18 16:31:00 115 mm[Hg] [facility] Diastolic blood 2022-08-18 16:31:00 76 mm[Hg] [facility]ity of [facility] Heart rate 2022-08-18 16:31:00 80 /min [facility] Respiratory rate 2022-08-18 16:31:00 18 /min [facility] Body weight 2022-08-18 16:31:00 85.078 kg [facility] Oxygen saturation in 2022-08-18 16:31:00 95 /min [facility]ial blood by [place] [facility] Systolic blood 2022-07-13 02:06:00 134 mm[Hg] [facility] Diastolic blood 2022-07-13 02:06:00 83 mm[Hg] [facility]ity of [facility] Heart rate 2022-07-13 02:06:00 108 /min [facility] Body temperature 2022-07-13 02:06:00 37 [place] [facility] Respiratory rate 2022-07-13 02:06:00 18 /min [facility] Body height 2022-07-13 02:06:00 172.7 cm [facility] [place] [facility] Body weight 2022-07-13 02:06:00 83.915 kg [facility] BMI 2022-07-13 02:06:00 28.13 kg/m2 [facility] [place] [facility] Body mass index 2022-07-13 02:06:00 92.48 % Unive rsity of (BMI) [Percentile] [facility] ical Per age and sex Branch Oxygen saturation in 2022-07-13 02:06:00 99 /min [facility] Arterial blood by [facility] [facility] Systolic blood 2022-06-22 14:59:00 122 mm[Hg] [facility]iver [facility]ity of [facility] Diastolic blood 2022-06-22 14:59:00 83 mm[Hg] [facility]ity of [facility] Heart rate 2022-06-22 14:59:00 89 /min [facility] Respiratory rate 2022-06-22 14:59:00 19 /min [facility] Body height 2022-06-22 14:59:00 172.7 cm [facility] Body weight 2022-06-22 14:59:00 83.462 kg [facility] BMI 2022-06-22 14:59:00 27.98 kg/m2 [facility] Body mass index 2022-06-22 14:59:00 92.21 % Unive rsity of (BMI) [Percentile] [place] [facility] Per age and sex Branch Oxygen saturation in 2022-06-22 14:59:00 96 /min [facility] Arterial blood by [facility] cherie Pulse oximetry Branch Systolic blood 2022-06-21 09:30:00 99 mm[Hg] Univer [facility]ity of [facility] Diastolic blood 2022-06-21 09:30:00 69 mm[Hg] Unive rsity of pressure [facility] Heart rate 2022-06-21 09:30:00 94 /min [facility] [place] [facility] Respiratory rate 2022-06-21 09:30:00 20 /min [facility] [place] [facility] Oxygen saturation in 2022-06-21 09:30:00 96 /min [facility] Arterial blood by [facility] Pulse oximetry Branch Body temperature 2022-06-21 04:01:00 37.11 [place] [facility] Body height 2022-06-21 04:01:00 172.7 cm [facility] [place] [facility] Body weight 2022-06-21 04:01:00 83.915 kg [facility] BMI 2022-06-21 04:01:00 28.13 kg/m2 [facility] [place] [facility] Body mass index 2022-06-21 04:01:00 92.59 % Unive rsity of (BMI) [Percentile] [place] [facility] Per age and sex Branch Systolic blood 2022-06-17 04:30:00 126 mm[Hg] Univer sity of pressure [facility] Diastolic blood 2022-06-17 04:30:00 76 mm[Hg] Unive rsity of pressure [facility] Heart rate 2022-06-17 04:30:00 125 /min Universi ty [facility] [place] [facility] Respiratory rate 2022-06-17 04:30:00 20 /min Univ ersity of [facility] Oxygen saturation in 2022-06-17 04:30:00 100 /min University of Arterial blood by [facility] Pulse oximetry [place] Body temperature 2022-06-16 23:56:00 37.44 [place]issett [facility] ersity of [facility] Body weight 2022-06-16 21:02:00 82.101 kg Universi ty [facility] Systolic blood 2022-05-29 07:01:00 116 mm[Hg] Univer sity of pressure [facility] Diastolic blood 2022-05-29 07:01:00 64 mm[Hg] Unive rsity of [facility] Heart rate 2022-05-29 07:01:00 116 /min Universi ty [facility] Respiratory rate 2022-05-29 07:01:00 18 /min [facility] Oxygen saturation in 2022-05-29 07:01:00 97 /min University of Arterial blood by [facility] Pulse oximetry [place] Body temperature 2022-05-29 01:29:00 36.94 Lissett [facility] ersity [facility] Body height 2022-05-29 01:29:00 172.7 cm Universi ty [facility] Body weight 2022-05-29 01:29:00 79.334 kg Universi ty [facility] BMI 2022-05-29 01:29:00 26.59 kg/m2 [facility] Body mass index 2022-05-29 01:29:00 87.81 % Unive rsity of (BMI) [Percentile] [place] [facility] Per age and sex Branch [...] 2019-03-01 16:13:00 36.89 [place] Univ ersity of [place] [facility] Respiratory rate 2019-03-01 16:13:00 20 /min Univ ersity of [place] [facility] Body height 2019-03-01 16:13:00 168.1 cm [facility]i ty [facility] [place] [facility] Body weight 2019-03-01 16:13:00 58.3 kg [facility] [place] [facility] BMI 2019-03-01 16:13:00 20.63 kg/m2 [facility] [place] [facility] Systolic blood 2019-03-01 16:13:00 133 mm[Hg] Univer sity of pressure [facility] Diastolic blood 2019-03-01 16:13:00 77 mm[Hg] Unive rsity of pressure [facility] Heart rate 2019-03-01 16:13:00 76 /min [facility] [place] [facility] Body temperature 2019-03-01 16:13:00 36.89 [place] Univ ersity of [place] [facility] Respiratory rate 2019-03-01 16:13:00 20 /min Univ ersity of [facility] Body height 2019-03-01 16:13:00 168.1 [...] 2018-03-08 19:32:00 92 /min [facility] [place] [facility] Body temperature 2018-03-08 19:32:00 36.67 L[place] Univ ersity of [place] [facility] Body height 2018-03-08 19:32:00 166.1 cm [facility] [place] [facility] Body weight 2018-03-08 19:32:00 51.1 kg [facility] [place] [facility] BMI 2018-03-08 19:32:00 18.52 kg/m2 [facility] [place] [facility] Systolic blood 2022-04-08 13:03:00 125 mm[Hg] [facility] pressure [facility] Diastolic blood 2022-04-08 13:03:00 82 mm[Hg] [facility] Heart rate 2022-04-08 13:03:00 80 /min [facility] Body temperature 2022-04-08 13:03:00 37.11 Lissett [facility] Body height 2022-04-08 13:03:00 172.7 cm [facility] Body weight 2022-04-08 13:03:00 82.01 kg [facility] BMI 2022-04-08 13:03:00 27.49 kg/m2 [facility] Body mass index 2022-04-08 13:03:00 91.28 % [facility] (BMI) [Percentile] Medical C enter Per age and sex Oxygen saturation in 2022-04-08 13:03:00 96 /min [facility] Arterial blood by Medical Ce nter Pulse oximetry Procedures Procedure Date / Time Performing Clinician Source Performed CONSENT/REFUSAL FOR 2023-03-18 Doctor Unassigned, No [facility] DIAGNOSIS AND TREATMENT 18:12:13 [facility] XR CHEST 2 VW 2023-03-10 Avani [facility] 00:48:36 [facility] URINALYSIS 2023-03-10 [facility] 00:42:00 [facility] COMP. METABOLIC PANEL 2023-03-09 Avani [facility] ([id number]) 23:41:00 [facility] CBC WITH DIFF 2023-03-09 Avani [facility] 23:41:00 [facility] CONSENT/REFUSAL FOR 2023-03-09 Doctor Unassigned, No [facility] DIAGNOSIS AND TREATMENT 21:49:15 Name [facility] Branch PATIENT 2023-03-04 Doctor Unassigned, No [facility] TEACHING/INSTRUCTIONS- 05:01:00 Name Medical B ranch OUTPATIENT EKG-12 LEAD 2023-03-04 Severo [facility] 00:58:09 [facility] Branch TROPONIN I 2023-03-03 [place], [place] [facility] [place] 19:25:00 [facility] Branch COMP. METABOLIC PANEL [id number] 19:25:00 [facility] Branch N-TERMINAL PRO-BNP 2023-03-03 Severo Mil [facility] 19:25:00 Medical Branch CONSENT/REFUSAL FOR 2023-03-03 Doctor Unassigned, No [facility] DIAGNOSIS AND TREATMENT 18:26:39 [facility] XR HAND 3+ VW RIGHT 2023-03-02 Barrie Malhotra [facility] 18:23:39 [facility] ELECTROPHYSIOLOGY PROCEDURE 2023-02-[facility] FOR RELEASE 2023-02-19 Doctor Unassigned, No [facility] 05:01:00 [facility] EKG-12 LEAD 2023-02-01 Arsalan [facility] [place] 06:36:[address] [facility] [address] CHEST PULMONARY 2023-02-01 Arsalan Grant [facility] ANGIOGRAM 05:31:00 [facility] TROPONIN I 2023-02-01 Arsalan [facility] 05:13:00 [facility] COMP. METABOLIC PANEL 2023-02-01 Arsalan Grant [facility] ([id number]) 05:13:00 [facility] URINE DRUG (IMMUNOASSAY) - 2023-02-01 Arsalan Grant [facility] COMPREHENSIVE DRUG SCREEN 05:13:00 Medica [facility] CBC WITH DIFF 2023-02-01 Arsalan [facility] [place] 05:13:00 [facility] XR CHEST 1 VW 2023-02-01 Arsalan [facility] [place] 04:17:00 [facility] Branch CONSENT/REFUSAL FOR 2023-02-01 Doctor Unassigned, No [facility] DIAGNOSIS AND TREATMENT 03:26:07 [facility] MEDICATION CORRESPONDENCE 2023-01-28 Doctor Unassigned, No [facility] 05:01:00 [facility] CONSENT/REFUSAL FOR 2023-01-21 Doctor Unassigned, No [facility] DIAGNOSIS AND TREATMENT 02:34:06 [facility] FL TIME OR (NON-REPORTABLE) 2023-01-18 Hannah Ventura Un [facility] 17:11:45 Medical Branch FL TIME OR (NON-REPORTABLE) 2023-01-18 Hannah Ventura Un [facility] 17:11:45 Medical Branch METACARPAL ORIF 2023-01-18 Hannah Ventura [facility] 15:47:00 Medical Branch POCT GLUCOSE (AUTOMATED) 2023-01-18 Hannah Ventura [facility] 14:50:00 Medical Branch POCT GLUCOSE (AUTOMATED) 2023-01-18 Hannah Ventura [facility] 14:50:00 Medical Branch EXTERNAL PROVIDER RECORDS 2023-01-18 Doctor Unassigned, No [facility] 05:01:00 Name Medical Branch BASIC METABOLIC PANEL (NA, 2023-01-15 [facility] K, CL, CO2, GLUCOSE, BUN, 13:06:00 Medica l Branch CREATININE, CA) CBC WITH DIFF 2023-01-15 Hannah Ventura [facility] 13:06:00 Medical Branch URINALYSIS 2023-01-15 Hannah Ventura [facility] 13:06:00 Medical Branch HB ABO GROUPING 2023-01-15 Hannah Ventura [facility] 13:06:00 Medical Branch ASSIGNMENT OF BENEFITS 2023-01-15 Doctor Unassigned, No [facility] [place] 12:48:04 Name Medical Branch EXTERNAL PROVIDER RECORDS 2023-01-14 Doctor Unassigned, No [facility] 05:01:00 Name Medical Branch EXTERNAL PROVIDER RECORDS 2023-01-14 Doctor Unassigned, No [facility] 05:01:00 Name Medical Branch REFERRAL- REQUEST/RESPONSE 2023-01-13 Doctor Unassigned, No [facility] 05:01:00 Name Medical Branch ASSIGNMENT OF BENEFITS 2023-01-08 Doctor Unassigned, No [facility] [place] 22:03:56 Name Medical Branch XR HAND <3 VW RIGHT 2023-01-08 [facility] 20:29:08 Medical Branch CONSENT/REFUSAL FOR 2023-01-08 Doctor Unassigned, No [facility] DIAGNOSIS AND TREATMENT 19:46:31 Name Medical Branch REFERRAL- REQUEST/RESPONSE 2023-01-08 Doctor Unassigned, No [facility] 05:01:00 Name Medical Branch INSURANCE CORRESPONDENCE 2022-12-10 Doctor [facility]igned, No [facility] 05:01:00 Name Medical Branch PHYSICIAN ORDERS 2022-12-08 Doctor Unassigned, No [facility] 05:01:00 Name Medical Branch ASSIGNMENT OF BENEFITS 2022-12-07 Doctor Unassigned, No [facility] 04:38:17 Name Medical Branch XR CHEST 1 VW 2022-12-07 Tyron Nuñez [facility] [place] 03:58:05 Medical Branch NOTICE OF PRIVACY PRACTICES 2022-12-07 Doctor Unassigned, N o [facility] 02:24:27 Name Medical Branch CONSENT/REFUSAL FOR 2022-12-07 Doctor Unassigned, No [facility] DIAGNOSIS AND TREATMENT 02:23:58 Name Medical Branch INSURANCE CORRESPONDENCE 2022-11-18 [facility]igned, [facility] 05:01:00 Name Medical Branch XR SPINE THORACIC 2 VW 2022-11-17 Beena Ramirez Uni versity [facility] 18:11:54 Medical Branch XR LUMBAR SPINE 2 VW 2022-11-17 Beena Ramirez [facility] 18:11:42 Medical Branch XR CERVICAL SPINE 2 VW 2022-11-17 Beena Ramirez [facility] 18:11:11 Medical Branch PATIENT QUESTIONNAIRE 2022-11-17 Doctor Unassigned, No [facility] 05:01:00 Name Medical Branch MEDICATION CORRESPONDENCE 2022-11-16 Doctor Unassigned, No [facility] 05:01:00 Name Medical Branch XR CHEST 1 VW 2022-11-13 Colleen Varma [facility] [place] 03:14:48 Medical Branch DISCLOSURE AND CONSENT, 2022-11-03 Doctor Unassigned, No [facility] MEDICAL [facility] SURGICAL 05:01:00 Name Medical [facility] PROCEDURES URINALYSIS 2022-10-29 [facility] 09:11:00 Medical Branch LIPASE 2022-10-29 [facility] 09:08:00 Medical Branch MAGNESIUM 2022-10-29 [facility] 09:08:00 Medical Branch COMP. METABOLIC PANEL 2022-10-29 [facility] ([id number]) 09:08:00 Medical Branch CBC WITH DIFF 2022-10-29 [facility] [place] 09:08:00 Medical Branch KEPPRA (LEVETIRACETAM) 2022-10-29 [facility] 09:08:00 Medical Branch CONSENT/REFUSAL FOR 2022-10-29 Doctor Unassigned, No [facility] DIAGNOSIS AND TREATMENT 07:52:18 Name Medical Branch EKG-12 LEAD 2022-10-28 Pita Malhotra [facility] ex 02:24:23 Medical Branch TROPONIN I 2022-10-28 [facility] ex 01:37:00 Medical Branch COMP. METABOLIC PANEL 2022-10-[address] [facility] ([id number]) 01:37:00 Medical Branch CBC WITH DIFF 2022-10-28 [facility] ex 01:37:00 Medical Branch D-DIMER 2022-10-28 [facility] ex 01:37:00 Medical Branch CONSENT/REFUSAL FOR 2022-10-28 Doctor Unassigned, No [facility] DIAGNOSIS AND TREATMENT 00:34:51 Name Medical Branch MAGNESIUM 2022-10-20 [facility] [place] 19:56:00 Medical Branch TROPONIN I 2022-10-20 [facility] [place] 19:56:00 Medical Branch COMP. METABOLIC PANEL 2022-10-20 [facility] ([id number]) 19:56:00 Medical Branch CBC WITH DIFF 2022-10-20 [facility] 19:56:00 Medical Branch D-DIMER 2022-10-20 [facility] 19:56:00 Medical Branch N-TERMINAL PRO-BNP 2022-10-20 [facility] 19:56:00 Medical Branch CONSENT/REFUSAL FOR 2022-10-20 Doctor Unassigned, No [facility] DIAGNOSIS AND TREATMENT 19:10:[address] ABDOMEN PELVIS W 2022-10-09 Ruben Belcher [facility] CONTRAST 05:16:10 Medical Branch LIPASE 2022-10-09 Ruben Belcher [facility] 04:02:00 Medical Branch COMP. METABOLIC PANEL 2022-10-09 Ruben Belcher [facility] ([id number]) 04:02:00 Medical Branch CBC WITH DIFF 2022-10-09 Ruben Belcher [facility] 04:02:00 Medical Branch URINALYSIS 2022-10-09 [facility] 04:02:00 Medical Branch NOTICE OF PRIVACY PRACTICES 2022-10-09 Doctor Unassigned, N o [facility] 03:36:47 Name Medical Branch CONSENT/REFUSAL FOR 2022-10-09 Doctor Unassigned, No [facility] DIAGNOSIS AND TREATMENT 03:34:38 Name Medical [...] Branch INSURANCE CORRESPONDENCE 2022-07-21 Doctor Unassigned, No [facility] 06:01:00 Name Medical Branch MEDICATION CORRESPONDENCE 2022-07-16 Doctor Unassigned, No [facility] 06:01:00 Name Medical Branch EKG-12 LEAD 2022-07-13 Robert Gloria [facility] ex 04:05:39 Medical Branch XR CHEST 1 VW 2022-07-13 Robert Gloria [facility] ex 03:18:00 Medical Branch CONSENT/REFUSAL FOR 2022-07-13 Doctor Unassigned, No [facility] DIAGNOSIS AND TREATMENT 01:56:55 Name Medical Branch REFERRAL- REQUEST/RESPONSE 2022-06-24 Doctor Unassigned, No [facility] 06:01:00 Name [facility] CONSENT/REFUSAL FOR 2022-06-22 Doctor Unassigned, No [facility] DIAGNOSIS AND TREATMENT 14:45:55 Name [facility] CT THORAX WO CONTRAST 2022-06-21 Abraham [facility] 06:47:00 [facility] TROPONIN I 2022-06-21 Abraham [facility] [place] 05:33:00 [facility] COMP. METABOLIC PANEL 2022-06-21 Abraham [facility] ([id number]) 05:33:00 [facility] CBC WITH DIFF 2022-06-21 Abraham [facility] [place] 05:33:00 [facility] PROTHROMBIN TIME / INR 2022-06-21 Abraham [facility] 05:33:00 [facility] ACTIVATED PARTIAL THRMPLAS 2022-06-21 Meghan Rosario [facility] LIV 05:33:00 [facility] N-TERMINAL PRO-BNP 2022-06-21 Abraham [facility] 05:33:00 [facility] XR CHEST 1 VW 2022-06-21 Abraham [facility] [place] 05:00:00 [facility] BLOOD CULTURE SCREEN 2022-06-21 Abraham [facility] 04:29:00 [facility] RAPID INFLUENZA A/B 2022-06-21 Abraham [facility] 04:29:00 [facility] COVID-19 (ID NOW RAPID 2022-06-21 [facility]) 04:29:00 [facility] BLOOD CULTURE SCREEN 2022-06-21 Abraham [facility] 04:15:00 [facility] CONSENT/REFUSAL FOR 2022-06-21 Doctor Unassigned, No [facility] DIAGNOSIS AND TREATMENT 03:54:30 Name [facility] AUTHORIZATION TO RELEASE 2022-06-18 Doctor Unassigned, No [facility] TO [facility] 06:01:00 Name [facility] CT CHEST PULMONARY 2022-06-16 Ruben Belcher [facility] ANGIOGRAM 23:13:02 Medical Branch LIPASE 2022-06-16 [facility] [place] 22:15:00 Medical Branch COMP. METABOLIC PANEL 2022-06-16 Ruben Belcher [facility] ([id number]) 22:15:00 Medical Branch CBC WITH DIFF 2022-06-16 Ruben Belcher [place] [facility] [place] 22:15:00 Medical Branch RAPID STREP SCREEN FOR 2022-06-16 Ruben Belcher [facility] GROUP A 22:15:00 Medical Branch GALV ONLY - INFLUENZA A B 2022-06-16 [facility] RSV [facility] 22:15:00 [facility] Branch COVID-19 (ID NOW RAPID 2022-06-16 Ye Kaileyestefani Cooley [facility] TESTING) 22:15:00 Medical Branch LAB ONLY COVID 2022-06-16 Ruben Belcher [place] [facility] INTERPRETATION 22:15:00 Medical Branch CONSENT/REFUSAL FOR 2022-06-16 Doctor Unassigned, No [facility] DIAGNOSIS AND TREATMENT 21:00:59 Name [facility] LACTIC ACID WHOLE BLOOD 2022-05-29 [facility] 04:08:00 [facility] BLOOD CULTURE SCREEN 2022-05-29 [facility] 02:22:00 [facility] Branch COMP. METABOLIC PANEL 2022-05-29 [facility] ([id number]) 02:22:00 Medical Branch CBC WITH DIFF 2022-05-29 [facility] xa 02:22:00 [facility] LACTIC ACID WHOLE BLOOD 2022-05-29 [facility] 02:21:00 [facility] URINALYSIS 2022-05-29 [facility] [place] 02:05:00 [facility] XR CHEST 1 VW 2022-05-29 [facility] [place] 02:03:57 [facility] Branch NOTICE OF PRIVACY PRACTICES 2022-05-29 Doctor Unassigned, N o [facility] 01:16:26 Name [facility] CONSENT/REFUSAL FOR 2022-05-29 Doctor Unassigned, No [facility] DIAGNOSIS AND TREATMENT 01:15:44 Name [facility] COMPREHENSIVE METABOLIC 2022-04-08 Khaderi, Junior Aijaz [facility] PANEL 14:15:00 Medical Center BILIRUBIN, DIRECT 2022-04-08 Khaderi, Junior [facility]ij[facility] 14:15[facility]00 [facility] CBC W/PLT COUNT & AUTO 2022-04-08 Khaderi, Junior Aijaz [facility] DIFFERENTIAL 14:15:00 Medical Center HEPATITIS A ANTIBODY, IGG 2022-04-08 Alondra Juniorcecilio Ruffinz [facility] 14:15:00 Medical Center HEPATITIS B SURFACE ANTIGEN 2022-04-08 Khaderi, Junior Aijaz [facility] 14:15:00 Medical Center HEPATITIS B SURFACE 2022-04-08 Khaderi, Junior Aijaz [facility] ANTIBODY 14:15:00 Medical Center HEPATITIS B CORE ANTIBODY, 2022-04-08 Khaderi, Junior Aijaz [facility] TOTAL 14:15:00 Medical Center HEPATITIS C ANTIBODY 2022-04-08 Willyaderi, Junior Aijaz [facility] 14:15:00 Medical Center IRON, TIBC, % SAT. (WITHOUT 2022-04-08 Khaderi, Junior Aijaz [facility] FERRITIN) 14:15:00 Medical Center FERRITIN 2022-04-08 Willyaderi, [facility] 14:15[facility] [id number]\\, SERUM 2022-04-08 Khaderi, Junior Aijaz [facility] 14:15:00 [facility] Center CERULOPLASMIN 2022-04-08 Willyaderi, [facility] 14:15:00 [facility] Center ANTI-NUCLEAR ANTIBODY (FERNANDA) 2022-04-08 Khaderi, Junior Aijaz [facility] 14:15:00 Medical Center ACTIN (SMOOTH MUSCLE) 2022-04-08 Willyaderi, Junior Lala [facility] ANTIBODY, IGG 14:15:00 Medical Center MITOCHONDRIA M2 ANTIBODY 2022-04-08 Willyaderi Junior Aiciroz [facility] (IGG) 14:15:00 Medical Center IMMUNOGLOBULIN G (IGG) 2022-04-08 Willyaderi, Junior Aijaz [facility] 14:15:00 Medical Center CBC W/PLT COUNT & AUTO 2022-04-[address] [facility] DIFFERENTIAL 14:15:00 Medical Center [...] Lukes Test 00:00:00 Booster) [code = COVID-19 [facility] VACCINE (4 - Booster)] Future Scheduled 2018-11-27 Human immunodeficiency [facility] Test 00:00:00 virus screening Medical Cent er (procedure) [code = 635596453] Future Scheduled 2018-11-[address] [facility] Test 00:00:00 virus screening Medical Cent er (procedure) [code = 972334275] Future Scheduled 2018-11-[address] [facility] Test 00:00:00 virus screening Medical Cent er (procedure) [code = 613571071] Future Scheduled 2018-11-[address] [facility] Test 00:00:00 virus screening Medical Cent er (procedure) [code = 242371054] Future Scheduled 2018-11-[address] [facility] Test 00:00:00 virus screening Medical Cent er (procedure) [code = 880547055] Future Scheduled 2018-11-[address] [facility] Test 00:00:00 virus screening Medical Cent er (procedure) [code = 724182240] Future Scheduled 2005-12-28 WELL CHILD EXAM (>[address] [facility] Test 00:00:00 and <= 18 YEARS) [code = [facility] Center WELL CHILD EXAM (>2 YEARS and <= 18 YEARS)] Future Scheduled 2005-12-28 WELL CHILD EXAM (>[address] [facility] Test 00:00:00 and <= 18 YEARS) [code = [facility] Center WELL CHILD EXAM (>2 YEARS and <= 18 YEARS)] Future Scheduled 2005-12-28 WELL CHILD EXAM (>[address] [facility] Test 00:00:00 and <= 18 YEARS) [code = [facility] Center WELL CHILD EXAM (>2 YEARS and <= 18 YEARS)] Future Scheduled 2005-12-28 WELL CHILD EXAM (>[address] [facility] Test 00:00:00 and <= 18 YEARS) [code = [facility] Center WELL CHILD EXAM (>2 YEARS and <= 18 YEARS)] Encounters Start End Encounter Admission Attending Care Care Encounter Source Date/Time Date/Time Type Type Clinicians Facility Department ID 2023-09-23 2023-09-23 Outpatient R CHERISE MAURICE [facility] [id number] [facility] 12:00:00 12:00:00 KAE MAURICECKALINGAM ity [facility] 2023-06-07 2023-06-07 Outpatient R YANCI MICHAEL [facility] [id number] Univers 11:00:00 11:00:00 YANCI MICHAEL i ty of [facility] 2023-03-18 2023-03-18 Emergency X [facility] ERT [id number] Univers 13:27:00 13:45:00 FAITH ity [facility] 2023-03-18 2023-03-18 Emergency [facility] [id number] Univers 13:27:00 13:45:00 Faith [place] [id number] [id number] [id number] [address] 2023-03-16 2023-03-[address] [facility] [id number] Univers 00:00:00 00:00:00 Yanci CO[place] [id number] i [id number] [id number] Ak dicin NAL [address] [place] [address] 2023-03-11 2023-03-11 Outpatient R KAYLENE, CHERISE [facility] [id number] Univers 12:19:34 23:59:00 MICHAEL MAURICELa ity [facility] 2023-03-11 2023-03-11 [facility] [id number] Univers 12:19:34 23:59:00 Encounter Michael COLE[place] [id number] ity [id number] [id number] Ak dic[address] 2023-03-11 2023-03-11 [facility] Kaylene [facility] [id number] Univers 00:00:00 00:00:00 (Out) Michael COLEMAN [id number] ity [id number] [id number] Ak dical NAL 0[address] Branch [facility] 2023-03-11 2023-03-11 Letter Kaylene [facility] [id number] Univers 00:00:00 00:00:00 (Out) [place] [id number] [id number] [id number] Ak dical NAL 059 [facility] 2023-03-09 2023-03-09 Emergency X Colleen VARMA [facility] ERT [id number] Univers 16:56:00 20:56:00 ity of [facility] 2023-03-09 2023-03-09 Emergency Colleen Varma [facility] [id number] Univers 16:56:00 20:56:00 [facility] [id number] i [id number] [id number] [place] [id number] Branch 2023-03-09 2023-03-09 Telephone Kaylene [facility] [id number] Univers 00:00:00 00:00:00 [place] [id number] [id number] [id number] Ak dicin NAL 059 Branch [facility] 2023-03-07 2023-03-07 Refill Nichol [facility] 1.2.840.114 [id number] Univers 00:00:00 00:00:00 [facility] 350.1.13.10 ity of [place] [id number] [facility] [address] OFFICE BUILDING 2023-03-05 2023-03-05 Telephone Christian [facility] 1.2.249.949 [id number] [id number] Univers 00:00:00 00:00:00 Shidhruv JARED 350.1.13.10 i ty of [place] [phone] Ak dicin NAL [address] BUILDING 2023-03-04 2023-03-04 Orders Doctor DEE 1.2.840.114 [id number] Univers 00:00:00 00:00:00 Only Unassigned, MORGAN 350.1.13.10 ity of [place] [facility] 4.2.7.2.686 Morales as [phone] [place] [address] [address] 2023-03-03 2023-03-03 Emergency X [facility], [facility] ERT [id number] Univers 13:42:00 20:01:00 MIL ity of [facility] 2023-03-03 2023-03-03 Emergency [facility] 1.2.840.114 105 [id number] Univers 13:42:00 20:01:00 [facility] 350.1.13.10 i ty of [place].2.7.2.[place] [facility] [id number] [facility] [address] [place] 2023-03-03 2023-03-03 Telephone Jose Christopher [facility] 1.2.840.114 [id number] Univers 00:00:00 00:00:00 S HEALTH 350.1.13.10 it y of [place].2.[place] [id number] [facility] [address] OFFICE [facility] 2023-03-03 2023-03-[address] [facility] 1.2.840.114 1 [id number] Univers 00:00:00 00:00:00 [place] 350.1.13.10 ity of [place].686 [place] [phone] [place] 631229 [facility] 2023-03-03 2023-03-[address] [facility] 1.2.840.114 1 [id number] Univers 00:00:00 00:00:00 [place] 350.1.13.10 ity of [place] [id number] Ak dicLuke [place] 533779 [facility] 2023-03-02 2023-03-02 [facility] 1.2.840.114 [id number] Univers 12:50:00 23:59:00 Encounter [facility] 350.1.13.10 ity of [place] 4.2.7.2.686 Morales as JIGNA?BLEA [id number] Ak roetala LAMINLUIS E 809 [facility] OFFICE [facility] 2023-03-02 2023-03-02 Outpatient R ROSCOE [facility] [id number] Univers 13:00:00 13:38:29 BARRIE ity of [facility] 2023-03-02 2023-03-[address] [facility] 1.2.840.114 [id number] Univers 13:00:00 13:15:00 Visit [facility] 350.1.13.10 it y of [place] 4.2.7.2.686 Morales as JIGNA?BLEA [id number] Ak oj KIMBLELUIS E 198 [facility] 2023-02-23 2023-02-23 Surgery DARIEN Maurice 1.2.840.114 104 [id number] Univers 11:15:00 12:00:00 Chogisela MORA 350.1.13.[address] [facility] 4.2.7.2.686 [place]ales as [id number] [address] 2023-02-23 2023-02-23 Outpatient R CHERISE MAURICE [facility] CCA [id number] Univers 07:04:00 11:06:00 CHERISE MAURICE ity of [facility] 2023-02-23 2023-02-23 Hospital DARIEN Maurice 1.2.840.114 10 [id number] Univers 07:04:00 11:06:00 Encounter Michael DECKERY 350.1.13.[address] [facility] 4.2.7.2.686 [place] as [id number] [address] 2023-02-22 2023-02-[address] [facility] 1.2.840.114 [id number] Univers 10:00:00 10:30:00 Visit Danishaditi JARED 350.1.13.10 i ty of [place].2.7.2.686 [place] [id number] Ak dical NAL 085 [facility] 2023-02-22 2023-02-22 Outpatient R YANCI MICHAEL [facility] 10 [id number] Univers 10:00:00 10:00:00 YANCI MICHAEL i [facility] 2023-02-22 2023-02-22 Telephone Jose Christopher [facility] 1.2.840.114 [id number] Univers 00:00:00 00:00:00 S HEALTH 350.1.13.10 it y of [place].2.[place] [phone] [address] OFFICE [facility] 2023-02-22 2023-02-22 Telephone Jose Christopher [facility] 1.2.840.114 [id number] Univers 00:00:00 00:00:00 S HEALTH 350.1.13.10 it y of [place] [id number] [address] 2023-02-19 2023-02-19 Orders Doctor DEE 1.2.840.114 [id number] Univers 00:00:00 00:00:00 Only Unassigned, MORGAN 350.1.13.10 ity of [place] [facility] 4.2.7.2.686 Morales as [id number] [address] 2023-02-18 2023-02-18 Telephone Abrol, [facility] 1.2.840.114 10 [id number] Univers 00:00:00 00:00:00 Robinder HEALTH 350.1.13.10 ity of [place].2.[place] [phone] [address] 2023-02-18 2023-02-18 Telephone Abrol, [facility] 1.2.840.114 10 [id number] Univers 00:00:00 00:00:00 Robinder Y HEALTH 350.1.13.10 ity of [place].2.[place] [id number] [address] 2023-02-18 2023-02-[address] [facility] 1.2.347.611 [id number] [id number] Univers 00:00:00 00:00:00 Christiano COLEMAN 350.1.13.10 ity of [place] 4.2.7.2.686 [place] [id number] Ak dical NAL 059 [facility] 2023-02-18 2023-02-18 Telephone BOB Mcfarland 1.2.840.114 10 [id number] Univers 00:00:00 00:00:00 Robazra Morales HEALTH 350.1.13.[address] [facility] 4.2.7.2.[address] [id number] [facility] [address] [place] [address] 2023-02-15 2023-02-15 Outpatient R JOSE CHRISTOPHER [facility] 620 [id number] Univers 08:30:00 08:30:00 ity of [facility] 2023-02-09 2023-02-09 Hospital [facility] 1.2.840.114 [id number] Univers 14:30:00 23:59:00 Encounter [facility] 350.1.13.10 ity of [place] 4.2.7.2.686 Morales as JIGNA?BLEA [id number] Ak roetala T[place] 809 [facility] OFFICE [facility] 2023-02-09 2023-02-09 Outpatient R ROSCOE [facility] [id number] Univers 14:45:00 16:09:28 BARRIE ity [facility] 2023-02-09 2023-02-09 Office [facility] 1.2.840.114 [id number] Univers 14:45:00 15:00:00 Visit [facility] 350.1.13.10 it y of [place] 4.2.7.2.686 Morales as JIGNA?BLEA [phone] Ak dictala KIMBLEEY 198 [facility] OFFICE [facility] 2023-02-09 2023-02-[address] [facility] 1.2.325.300 [id number] [id number] Univers 00:00:00 00:00:00 Shiaparnan JARED 350.1.13.10 i ty of [place] 4.2.7.2.686 [place] [id number] Ak dical NAL 085 [facility] 2023-02-01 2023-02-01 Outpatient R ROSCOE [facility] [id number] Univers 14:10:00 23:59:00 BARRIE ity [facility] 2023-02-01 2023-02-[address] [facility] 1.2.840.114 [id number] Univers 13:45:00 14:00:00 Visit Barrie [facility] 350.1.13.10 it y of [place] 4.2.7.2.686 Morales as JIGNA?BLEA [id number] [address] MEDICAL OFFICE [facility] 2023-01-31 2023-02-01 Emergency X VASUT, [facility] ERT [id number] Univers 22:28:00 01:54:00 [facility]23-[facility]-31 2023-02-01 Emergency [facility] 1.2.777.130 [id number] [id number] Univers 22:28:00 01:54:00 Arsalan COLEMAN 350.1.13.10 i ty of [place] 4.2.7.2.[place] [id number] [facility] [address] 2023-02-01 2023-02-01 Telephone DARIEN Maurice 1.2.840.114 1 [id number] Univers 00:00:00 00:00:00 Michael DUNREITH 350.1.13.[address] [facility] 4.2.7.2.[id number] [facility] [address] 2023-01-29 2023-01-29 Outpatient R CHERISE MAURICE [facility] [id number] Univers 09:49:06 23:59:00 CHERISE MAURICEliliana [facility] 2023-01-28 2023-01-28 Outpatient R CHERISE MAURICE [facility] [id number] Univers 15:20:00 15:30:35 CHERISE MAURICEliliana [facility] 2023-01-28 2023-01-28 Office Kaylene [facility] 1.2.840.114 104 [id number] Univers 15:20:00 15:30:35 Visit Michael COLEMAN 350.1.13.10 ity of [facility] 4.2.7.2.[place] [id number] Ak dicin NAL [address] BUILDING 2023-01-28 2023-01-28 Telephone Christian [facility] 1.2.342.391 [id number] [id number] Univers 00:00:00 00:00:00 Shiwan [place] 350.1.13.10 i ty of [place] 4.2.7.2.686 [place] [id number] [facility] 085 [facility] 2023-01-28 2023-01-28 Refill Nichol [facility] 1.2.840.114 [id number] Univers 00:00:00 00:00:00 [facility] 350.1.13.10 ity of [place] 4.2.7.2.686 [place] [id number] [place] 36[address] [place] OFFICE BUILDING 2023-01-28 2023-01-28 Telephone Christian [facility] 1.2.853.356 1088 [id number] Univers 00:00:00 00:00:00 Shiwan [place] 350.1.13.10 i ty of [place] 4.2.7.2.[place] [id number] [address] 2023-01-28 2023-01-28 Orders Doctor DEE 1.2.840.114 [id number] Univers 00:00:00 00:00:00 Only Unassigned, MORGAN 350.1.13.10 ity of [place] [facility] 4.2.7.2.[id number] [facility] [address] 2023-01-20 2023-01-21 Emergency X SACHIN CARVAJAL [facility] ERT [id number] Univers 21:49:00 00:40:00 ity of [facility] 2023-01-20 2023-01-21 Emergency Sachin Carvajal [facility] 1.2.840.114 [id number] Univers 21:49:00 00:40:00 T [place] 350.1.13.10 i ty of [place] 4.2.7.2.[place] [address] [id number] [facility] [address] 2023-01-18 2023-01-18 Outpatient R LORENZO [facility] [id number] Univers 09:13:00 13:06:00 HANNAH ity of [facility] 2023-01-18 2023-01-[address] [facility] 1.2.840.114 104 [id number] Univers 09:13:00 13:06:00 Encounter Hannah GÓMEZNELSON 350.1.13.10 ity of [place].2.7.2.[place] SURGICAL [id number] [facility] [address] 2023-01-18 2023-01-[address] [facility] 1.2.071.715 [id number] [id number] Univers 10:50:00 12:25:00 Hannahforrest [place] 350.1.13.10 i ty of [place] 4.2.7.2.686 [place] SURGICAL [id number] [facility] [address] 2023-01-18 2023-01-18 Orders Doctor DEE 1.2.840.114 [id number] Univers 00:00:00 00:00:00 Only Unassigned, MORGAN 350.1.13.10 ity of [place] [facility] 4.2.7.2.686 Morales as [id number] [address] 2023-01-15 2023-01-15 Molecular Biology Professor Grisel, [facility] Main [facility] 1.2.8 40.114 [id number] Univers 08:30:00 08:45:00 Visit Sarbjit Kee 350.1.13.10 ity of [place] 4.2.7.2.686 [facility] [phone] Ak dical [facility] 353 [facility] 2023-01-15 2023-01-15 Out[facility] [id number] Univers 08:30:00 08:30:00 HANNAH itliliana of [facility] 2023-01-15 2023-01-15 Orders Doctor DEE 1.2.840.114 [id number] Univers 00:00:00 00:00:00 Only Unassigned, MORGAN 350.1.13.10 ity of [place] [facility] 4.2.7.2.[id number] [facility] [address] 2023-01-14 2023-01-14 Telephone Roscoe [facility] 1.2.965.303 [id number] [id number] Univers 00:00:00 00:00:00 Barrie Vaughn HEALTH 350.1.13.10 it [facility] 4.2.7.2.686 [place]ales as JIGNA?BLEA [id number] Ak oj [address] OFFICE [facility] 2023-01-13 2023-01-[address] [facility] 1.2.224.055 1650 [id number] Univers 13:00:00 13:15:00 Visit Hannah Orozco [facility] 350.1.13.10 it y [facility] 4.2.7.2.686 [place]ales as JIGNA?BLEA [id number] Ak oj [address] OFFICE [facility] 2023-01-13 2023-01-13 Outpatient [facility] [id number] Univers 13:00:00 13:00:00 HANNAH simental [facility] 2023-01-13 2023-01-13 Orders Doctor DEE 1.2.840.114 [id number] Univers 00:00:00 00:00:00 Only Unassigned, MORGAN 350.1.13.10 ity of [place] [facility] 4.2.7.2.686 Morales as [id number] [address] 2023-01-08 2023-01-[address] [facility] ERT [id number] Univers 14:55:00 17:08:00 SURY ity of [facility] 2023-01-08 2023-01-08 Emergency [facility] 1.2.314.550 [id number] Univers 14:55:00 17:08:00 Sury S JARED 350.1.13.10 i ty of [place].2.7.2.[place] [id number] [facility] [address] [place] 2023-01-08 2023-01-08 Orders Doctor DEE 1.2.840.114 [id number] Univers 00:00:00 00:00:00 Only Unassigned, MORGAN 350.1.13.10 ity of [place] [facility] 4.2.7.2.686 Mor[place] as [id number] [address] 2023-01-08 2023-01-[address] [facility] 1.2.518.677 [id number] [id number] Univers 00:00:00 00:00:00 Shiwan R[place]OTON 350.1.13.10 i ty of [place].2.7.2.[place] [id number] [place] 011005 [facility] 2023-01-05 2023-01-[address] [facility] 1.2.693.678 [id number] [id number] Univers 00:00:00 00:00:00 Shiwan RICOTON 350.1.13.10 i ty of [place] 4.2.7.2.686 [place] [id number] [address] 2022-12-28 2022-12-[address] [facility] 1.2.375.763 [id number] [id number] Univers 00:00:00 00:00:00 Qiangeligio CO[place] 350.1.13.10 ity of [place] 4.2.7.2.686 [place] [id number] [address] 2022-12-21 2022-12-21 Outpatient R JOSE CHRISTOPHER [facility] 108 [id number] Univers 09:20:00 09:33:52 ity of [facility] 2022-12-21 2022-12-21 Office Jose Christopher [facility] 1.2.840.114 10 [id number] Univers 09:20:00 09:33:52 Visit S HEALTH 350.1.13.10 it y of [place] 4[place]2.7.2.[place] [id number] [address] OFFICE BUILDING 2022-12-16 2022-12-16 Patient Doctor [facility] 1.2.840.114 [id number] Univers 00:00:00 00:00:00 Secure Msg Unassigned, JARED 350.1.13.10 ity of [place].2.7.2.[place] [id number] [facility] 059 [facility] 2022-12-15 2022-12-15 Inpatient R JOSE CHRISTOPHER [facility] TYRONE [id number] Univers 08:30:00 08:30:00 ity of [facility] 2022-12-14 2022-12-[address] [facility] 1.2.098.470 [id number] [id number] Univers 00:00:00 00:00:00 Yanci [place] 350.1.13.10 i ty of [place] 4.2.7.2.686 [place] [id number] Ak dic[address] 2022-12-11 2022-12-11 Outpatient R CEM [facility] [id number] Univers 16:00:00 16:00:00 CHRISTIANO simental o f [facility] 2022-12-10 2022-12-[address] [facility] 1.2.349.739 [id number] [id number] Univers 00:00:00 00:00:00 Christiano COLEMAN 350.1.13.10 ity of [place] 4.2.7.2.[place] [id number] [facility] NAL [address] [place] [address] 2022-12-10 2022-12-10 Orders Doctor DEE 1.2.840.114 [id number] Univers 00:00:00 00:00:00 Only Unassigned, MORGAN 350.1.13.10 ity of [place] [facility] 4.2.7.2.686 Morales as [id number] [address] 2022-12-08 2022-12-08 Orders Doctor DEE 1.2.840.114 [id number] Univers 00:00:00 00:00:00 Only Unassigned, MORGAN 350.1.13.10 ity of [place] [facility] 4.2.7.2.686 Morales as [id number] [address] 2022-12-06 2022-12-07 Emergency X SINGER [facility] ERT [id number] Univers 21:57:00 00:35:00 TYRON simental [facility] 2022-12-06 2022-12-07 Emergency Singer [facility] 1.2.931.680 [id number] Univers 21:57:00 00:35:00 Tyron [place] 350.1.13.10 i ty [place].2.7.2.[place] [address] [id number] [facility] [address] [place] 2022-12-07 2022-12-[address] [facility] 1.2.169.277 [id number] [id number] Univers 00:00:00 00:00:00 Yanci [place] 350.1.13.10 i ty of [place] 4.2.7.2.[place] [id number] Ak dical NAL 085 [facility] 2022-12-04 2022-12-04 Telephone [facility] [employer] [facility] 1.2.988.408 8063 [id number] Univers 00:00:00 00:00:00 Christiano COLE[place] 350.1.13.10 ity of [place] 4.2.7.2.686 [place] [facility] 170.5923815 Ak dicin NAL 059 [facility] 2022-12-04 2022-12-04 [facility] 1.2.387.028 [id number] [id number] Univers 00:00:00 00:00:00 Christiano COLEMAN 350.1.13.10 ity of [place] 4.2.7.2.[place] [id number] Ak dicin NAL 059 [facility] 2022-12-03 2022-12-03 [facility] 1.2.840.114 1 [id number] Univers 14:07:58 23:59:00 Encounter , Pankaj SPECIALTY 350.1.13.10 ity of [place]2.7.2.[place] C[place] AT [phone] Ak oj SHEETS 809 [facility] 2022-12-03 2022-12-03 Outpatient R [facility] 853 [id number] Univers 12:45:00 14:46:50 , PANKAJ ity of [facility] 2022-12-03 2022-12-03 [facility] 1.2.840.114 10 [id number] Univers 12:45:00 14:46:50 Visit , Pankaj SPECIALTY 350.1.13.10 ity of [place] 4.2.7.2.[place] C[place] AT [id number] Ak oj SHEETS 198 [facility] 2022-12-02 2022-12-02 Outpatient R CEM, [facility] [id number] Univers 07:36:17 23:59:00 CHRISTIANO cooley [facility] 2022-11-26 2022-11-26 Outpatient [facility] [id number] Univers 13:00:00 13:22:38 ANJALI ity [facility] 2022-11-26 2022-11-26 Office Artis [facility] 1.2.840.114 10 [id number] Univers 13:00:00 13:22:38 Visit Anjali Y 350.1.13.10 it y of [facility] 4.2.7.2.686 Morales as BANK [id number] [facility] [address] [place] 2022-11-26 2022-11-26 Ancillary Wendy Rosario [facility] 1.2.84 0.114 [id number] Univers 11:15:00 11:17:49 Visit 1, [facility] Audio Sound [address] 350.1 .13.10 ity of Fadumo Ortiz 4.2.7.2.686 [facility] [phone] [facility] BLDG. [address] [place] 2022-11-23 2022-11-23 Outpatient R [facility] [id number] Univers 13:00:00 13:49:08 HANNAH itliliana [facility] 2022-11-23 2022-11-23 Ancillary Nano Cook [facility] 1 .2.840.114 [id number] Univers 13:00:00 13:49:08 Visit Hannah [place] 350.1.13.10 ity of [place] 4.2.7.2.[place] [id number] Ak dical NAL 179 [facility] 2022-11-20 2022-11-20 Telephone Christian [facility] 1.2.671.170 [id number] [id number] Univers 00:00:00 00:00:00 Yanci COLE[place] 350.1.13.10 i ty of [place] 4.2.7.2.[place] 215.0260341 Ak dical NAL 085 [facility] 2022-11-19 2022-11-19 Outpatient [facility] [id number] Univers 11:20:00 11:34:12 FESTUSMARY simental o f [facility] 2022-11-19 2022-11-[address] [facility] 1.2.840.114 [id number] Univers 11:20:00 11:34:12 Visit Christiano COLEMAN 350.1.13.10 ity of [place] 4.2.7.2.[place] [phone] Ak dical NAL 059 [facility] 2022-11-18 2022-11-18 Orders Doctor DEE 1.2.840.114 [id number] Univers 00:00:00 00:00:00 Only Unassigned, MORGAN 350.1.13.10 ity of [place] [facility] 4.2.7.2.686 Morales as 335.3535484 [address] 2022-11-17 2022-11-17 [facility] 1.2.618.248 [id number] [id number] Univers 14:11:57 23:59:00 Encounter Beena SPECIALTY 350.1.13.10 ity of [place].7.2.[place] C[place] AT [id number] Ak dical VICTORY 809 [facility] 2022-11-17 2022-11-17 Office [facility] 1.2.840.114 [id number] 4053 Univers 13:20:00 14:40:18 Visit Beena SPECIALTY 350.1.13.10 ity of [place]2.7.2.[place] C[place] AT [id number] Ak dical VICTORY 198 [facility] 2022-11-17 2022-11-17 [facility] 1.2.871.412 [id number] 60697 Univers 12:58:08 14:10:00 Encounter Beena SPECIALTY 350.1.13.10 ity of [place]2.7.2.[place] C[place] AT [id number] Ak dical VICTORY 809 [facility] 2022-11-17 2022-11-17 [facility] 1.2.589.349 8261 52900 Univers 12:58:02 14:10:00 Encounter Beena SPECIALTY 350.1.13.10 ity of [facility] 4.2.7.2.[place] C[place] AT [id number] Ak dictala BRASHERY 809 [facility] 2022-11-17 2022-11-17 Outpatient R ASHLEY [facility] [id number] Univers 12:57:56 12:57:56 BEENA ity of [facility] 2022-11-17 2022-11-17 [facility] [id number] [id number] Univers 12:57:56 12:57:56 Encounter Beena SPECIALTY 350.1.13.10 ity of [facility] [place] [phone] Ak oj SHEETS 809 [facility] 2022-11-16 2022-11-16 Office Christian [facility] 1.2.840.114 [id number] Univers 09:00:00 09:30:00 Visit Yanci COLEMAN 350.1.13.10 i ty [facility] [place] [phone] Ak dical NAL 085 [facility] 2022-11-16 2022-11-16 Outpatient R YANCI MICHAEL [facility] 10 [id number] Univers 09:00:00 09:00:00 YANCI MICHAEL i ty of [facility] 2022-11-16 2022-11-16 Orders Doctor PRICE 1.2.840.114 [id number] Univers 00:00:00 00:00:00 Only Unassigned, MORGAN 350.1.13.10 ity of [place] [facility] 4.2.7.2.686 [place] as [phone] [address] 2022-11-12 2022-11-13 Emergency X Colleen VARMA [facility] ERT [id number] Univers 21:44:00 00:14:00 ity of [facility] 2022-11-12 2022-11-13 Emergency Colleen Varma [facility] 1.2.840.114 10 [id number] Univers 21:44:00 00:14:00 Karen COLEMAN 350.1.13.10 i [place] [phone] [facility] [address] 2022-11-03 2022-11-03 Molecular Biology Professor [facility] 1.2.840.114 1 [id number] Univers 11:45:00 12:00:00 Visit Parrish Rosenberg Liang Liliana [facility] 350.1.13.10 [place].[address] [place] [id number] [facility] [address] 2022-11-03 2022-11-03 Office Jakob Mcfarland UNIVERS 1.2.840. 114 [id number] Univers 10:00:00 10:30:00 Visit Sheng Vasquez [facility] 350.1.13. 10 [place].[address] [place] [id number] [facility] [address] 2022-11-03 2022-11-03 Outpatient R CHRISTINA [facility] [id number] Univers 10:00:00 10:00:00 SHENG simental [facility] 2022-11-03 2022-11-03 Telephone BOB Mcfarland 1.2.840.114 10 [id number] Univers 00:00:00 00:00:00 Jakob [facility] 350.1.13.10 [place] [place] [id number] [facility] [address] 2022-11-03 2022-11-03 Orders Doctor DEE 1.2.840.114 [id number] Univers 00:00:00 00:00:00 Only Unassigned, MORGAN 350.1.13.10 ity of [place] [facility] 4.2.7.2.[id number] [facility] [address] 2022-11-02 2022-11-02 Telephone Christian [facility] 1.2.980.168 [id number] Univers 00:00:00 00:00:00 Yanci COLEMAN 350.1.13.10 i [place] [phone] Ak dical [facility] [facility] [address] [facility] 2022-10-29 2022-10-29 Emergency X MG FRYE [facility] ERT [id number] Univers 02:59:00 07:34:00 MG FRYE ity of [facility] 2022-10-29 2022-10-29 Emergency Stanley, TRAUMA 1.2.840.114 102 [id number] Univers 02:59:00 07:34:00 [facility] 350.1.13.10 it y [place].[address] [place] [address] [facility] [address] 2022-10-29 2022-10-29 Nurse Yong PRICE 1.2.840.114 [id number] Univers 00:00:00 00:00:00 Triage MORGAN Strauss 350.1.13.10 ity of [facility] 4.2.7.2.[id number] [facility] [address] [place] 2022-10-28 2022-10-28 Patient Doctor DEE 1.2.840.114 [id number] Univers 00:00:00 00:00:00 Secure Msg UnassMORGAN mayo 350.1.13.10 ity of [facility] 4.2.7.2.[id number] [facility] [address] [place] 2022-10-28 2022-10-28 Telephone BOB Mcfarland 1.2.840.114 10 [id number] Univers 00:00:00 00:00:00 [facility] 350.1.13.[address] [facility] 4.2.7.[place].[address] [place] [id number] [facility] [address] 2022-10-27 2022-10-[address] [facility] ERT [id number] Univers 19:47:00 21:40:00 PITA ity of [facility] 2022-10-27 2022-10-27 Emergency Roscoe [facility] 1.2.406.133 3135 80158 Univers 19:47:00 21:40:00 Pita COLEMAN 350.1.13.10 ity of [place] [id number] [facility] [address] 2022-10-25 2022-10-25 Telephone DARIEN Mcfarland 1.2.200.099 9207 [id number] Univers 00:00:00 00:00:00 Jakob MORGAN 350.1.13.10 i ty of [facility] 4.2.7.2.[id number] [facility] [address] 2022-10-21 2022-10-21 Telephone Christian [facility] 1.2.867.203 5829 45342 Univers 00:00:00 00:00:00 Yanci JARED 350.1.13.10 i ty of [place].2.[place] [facility] [phone] Ak dical [facility] 085 [facility] 2022-10-20 2022-10-[address] ERT [id number] Univers 14:26:00 17:47:00 TYRON simental of [facility] 2022-10-20 2022-10-[address] 1.2.441.232 9692 [id number] Univers 14:26:00 17:47:00 Tyron COLEMAN 350.1.13.10 i ty of [place] 4.2.7.2.686 [place] [facility] [id number] [facility] [address] 2022-10-20 2022-10-20 Orders Doctor DEE 1.2.840.114 [id number] Univers 00:00:00 00:00:00 Only Unassigned, MORGAN 350.1.13.10 ity of [place] [facility] 4.2.7.2.[id number] [facility] [address] 2022-10-12 2022-10-12 Nurse DEE Barth 1.2.840.114 [id number] 270 Univers 00:00:00 00:00:00 Triage Jose Carlos MORA 350.1.13.10 it y of HOSPITAL 4.2.7.2.[id number] [facility] [address] [place] 2022-10-11 2022-10-11 Patient Doctor DEE 1.2.840.114 [id number] Univers 00:00:00 00:00:00 Secure Msg Unassigned, MORGAN 350.1.13.10 ity of [place] [facility] 4.2.7.2.[id number] [facility] [address] 2022-10-08 2022-10-09 Emergency X FLORIDALMA, [facility] ERT [id number] Univers 22:48:00 01:33:00 RUBEN ity [facility] 2022-10-08 2022-10-[address] [facility] 1.2.840.114 10 [id number] Univers 22:48:00 01:33:00 Ruben COLEMAN 350.1.13.10 ity of [place]2.7.2.[place] [phone] [place] 9[address]184 [place] 2022-10-09 2022-10-09 Telephone Abrol, UNIVERSIT 1.2.840.114 10 [id number] Univers 00:00:00 00:00:00 [facility] 350.1.13.10 ity of [place] [id number] [address] 2022-10-08 2022-10-08 Telephone Abrol, UNIVERS 1.2.840.114 10 [id number] Univers 00:00:00 00:00:00 [facility] 350.1.13.10 ity of [place] [phone] [address] 2022-10-07 2022-10-07 Telephone Abr, UNIVERS 1.2.840.114 10 [id number] Univers 00:00:00 00:00:00 [facility] 350.1.13.10 ity of [place] [id number] [address] 2022-09-30 2022-09-[address] [facility] 1.2.112.697 6131 [id number] Univers 00:00:00 00:00:00 Yanci COLEMAN 350.1.13.10 i ty of [place] [id number] [address] 2022-09-24 2022-09-24 Outpatient R GERRY [facility] 124 [id number] Univers 15:30:00 15:30:00 , [facility]22-[facility]-21 2022-09-21 Orders Doctor DEE 1.2.840.114 [id number] Univers 00:00:00 00:00:00 Only Unassigned, MORGAN 350.1.13.10 ity of [place] [facility] 4.2.7.2.[id number] [facility] [address] [place] 2022-09-15 2022-09-15 Office Jakob Mcfarland UNIVERSIT 1.2.840. 114 [id number] Univers 07:30:00 08:00:00 Visit Sheng Vasquez [facility] 350.1.13. [address] [facility] 4.2.7.2.[id number] [facility] [address] [place] 2022-09-15 2022-09-15 Outpatient R CHRISTINA [facility] [id number] Univers 07:30:00 07:30:[address] [facility] 2022-08-26 2022-08-[address] [facility] 1.2.259.690 [id number] 08563 Univers 00:00:00 00:00:00 Shiaparnan JARED 350.1.13.10 i ty of [place]2.[place] [phone] [address] 2022-08-21 2022-08-[address] [facility] 1.2.997.902 1181 72180 Univers 00:00:00 00:00:00 Shiaparnan [place] 350.1.13.10 i ty of [place]2.[place] [id number] [address] 2022-08-20 2022-08-20 Orders Doctor DEE 1.2.840.114 [id number] Univers 00:00:00 00:00:00 Only Unassigned, MORGAN 350.1.13.10 ity of [place] [facility] 4.2.7.2.[phone] [facility] [address] [place] 2022-08-19 2022-08-19 Outpatient R NICHOL [facility] [id number] Univers 09:00:00 09:54:[address] [facility] 2022-08-19 2022-08-[address] [facility] 1.2.840.114 [id number] Univers 09:00:00 09:54:18 Visit [facility] 350.1.13.10 ity of [place].2.[place] AMAYA [phone] [address] OFFICE BUILDING 2022-08-18 2022-08-18 Outpatient R YANCI MICHAEL [facility] 10 [id number] Univers 10:30:00 11:01:57 YANCI MICHAEL i ty of [facility] 2022-08-18 2022-08-[address] [facility] 1.2.840.114 [id number] Univers 10:30:00 11:01:57 Visit Yanci COLEMAN 350.1.13.10 i ty of [place].2.[place] [id number] Ak dicin NAL [address] [place] [address] 2022-08-04 2022-08-04 Telephone Christian [facility] 1.2.156.109 7785 5672 Univers 00:00:00 00:00:00 Yanci COLEMAN 350.1.13.10 i ty of [place] [phone] Ak dic[address] 2022-08-04 2022-08-04 Orders Doctor PRICE 1.2.840.114 [id number] Univers 00:00:00 00:00:00 Only Unassigned, MORGAN 350.1.13.10 ity of [place] [facility] 4.2.7.2.686 [place] as [id number] [address] 2022-08-01 2022-08-01 Orders Doctor DEE 1.2.840.114 [id number] 093 Univers 00:00:00 00:00:00 Only Unassigned, MORGAN 350.1.13.10 ity of [place] [facility] 4.2.7.2.686 [place] as [id number] [address] 2022-07-30 2022-07-30 Orders Doctor DEE 1.2.840.114 [id number] Univers 00:00:00 00:00:00 Only Unassigned, MORGAN 350.1.13.10 ity of [place] [facility] 4.2.7.2.686 [place] as [id number] [address] 2022-07-29 2022-07-29 Telephone Christian FLMAGDALENA 1.2.881.989 9436 7439 Univers 00:00:00 00:00:00 Shiwan [place] 350.1.13.10 i ty of [place].2.[place] [phone] [address] 2022-07-29 2022-07-29 Orders Doctor DEE 1.2.840.114 [id number] Univers 00:00:00 00:00:00 Only Unassigned, MORGAN 350.1.13.10 ity of [place] [facility] 4.2.7.2.686 [place] as [id number] [address] 2022-07-28 2022-07-[address] [facility] 1.2.013.990 5756 5200 Univers 00:00:00 00:00:00 Shiwan [place] 350.1.13.10 i ty of [place]2.[place] [id number] [address] 2022-07-21 2022-07-21 Orders Doctor DEE 1.2.840.114 [id number] 75 Univers 00:00:00 00:00:00 Only Unassigned, MORGAN 350.1.13.10 ity of [place] [facility] 4.2.7.2.686 [place] as [id number] [address] 2022-07-16 2022-07-16 Adriana Mac [facility] 1.2.840.114 90863 950 Univers 00:00:00 00:00:00 Steve [facility] 350.1.13.10 ity of [facility] [place]2.7.2.[place] [id number] [address] 2022-07-16 2022-07-16 Telephone Christian [facility] 1.2.898.187 3534 5897 Univers 00:00:00 00:00:00 Shiwan [place] 350.1.13.10 i ty of [place] 4[place].2.[place] 184.1209612 Ak dicin NAL [address] [place] [address] 2022-07-16 2022-07-16 Orders Doctor DEE 1.2.840.114 [id number] 204 Univers 00:00:00 00:00:00 Only Unassigned, MORGAN 350.1.13.10 ity of [place] [facility] 4.2.7.2.686 [place] as [id number] [address] 2022-07-12 2022-07-12 Emergency X [facility] ERT [id number] Univers 20:10:00 22:24:00 ROBERT ity [facility] 2022-07-12 2022-07-12 [facility] 1.2.221.354 6335 2248 Univers 20:10:00 22:24:00 Robert COLEMAN 350.1.13.10 ity of [place].2.[place] [id number] [address] 2022-07-07 2022-07-[address] [facility] 1.2.360.772 2668 [id number] Univers 00:00:00 00:00:00 Yanci COLEMAN 350.1.13.10 i ty of [place].2.[place] [id number] [address] 2022-06-29 2022-06-29 Outpatient KAREN LEAHY, [facility] SLE [id number] SLE 00:00:00 00:00:00 JUNIOR 2022-06-24 2022-06-24 Orders Doctor DEE 1.2.840.114 [id number] Univers 00:00:00 00:00:00 Only Unassigned, MORGAN 350.1.13.10 ity of [place] [facility] 4.2.7.2.[address] [facility] [address] [place] 2022-06-22 2022-06-22 Outpatient R YANCI MICHAEL [facility] 10 [id number] Univers 09:00:00 09:40:28 YANCI MICHAEL i ty of [facility] 2022-06-22 2022-06-[address] [facility] 1.2.840.114 [id number] 42 Univers 09:00:00 09:40:28 Visit Yanci COLEMAN 350.1.13.10 i ty of [place] [phone] [place] 011005 [facility] 2022-06-22 2022-06-22 Orders Doctor DEE 1.2.840.114 [id number] 18 Univers 00:00:00 00:00:00 Only Unassigned, MORGAN 350.1.13.10 ity of [place] [facility] 4.2.7.2.686 [place] as [id number] [address] 2022-06-20 2022-06-21 Emergency X [facility] ERT [id number] Univers 22:02:00 04:05:00 MEGHAN ity [facility] 2022-06-20 2022-06-[address] [facility] 1.2.592.101 [id number] 8742 Univers 22:02:00 04:05:00 Meghan COLEMAN 350.1.13.10 i ty [place].2.[place] [id number] [place] 9[address]184 [place] 2022-06-18 2022-06-18 Orders Doctor DEE 1.2.840.114 [id number] Univers 00:00:00 00:00:00 Only Unassigned, MORGAN 350.1.13.10 ity of [place] [facility] 4.2.7.2.[id number] [facility] [address] [place] 2022-06-16 2022-06-[address] ERT [id number] Univers 15:04:00 22:47:00 FOLUSHO ity [facility] 2022-06-16 2022-06-16 Emergency Ibikunle, TRAUMA 1.2.840.114 98 [id number] Univers 15:04:00 22:47:00 [facility] 350.1.13.10 ity [place].[address] [place] [id number] [facility] [address] 2022-05-28 2022-05-29 Emergency X TAMY [facility] ERT [id number] Univers 19:34:00 02:25:00 ROBERT simental [facility] 2022-05-28 2022-05-29 Emergency Tyron Nuñez [facility] 1.2.840. 114 [id number] Univers 19:34:00 02:25:00 Robert [facility] 350.1.13.10 ity [facility] 4.2.7.2.[address] [facility] [id number] [facility] [address] 2022-04-08 2022-04-08 Office [facility] [id number] 13:00:00 14:00:00 Visit [facility] 2022-04-08 2022-04-08 Office [facility] [id number] 13:00:00 14:00:00 Visit [facility] 2022-04-08 2022-04-08 Outpatient KAREN LEAHY [facility] SLE [id number] SLE 11:58:43 11:58:43 [facility] 2020-06-11 2020-06-11 Telephone [facility] 1.2.241.461 9454 4860 00:00:00 00:00:00 Felix SPECIALTY 350.1.13.10 [facility] 4.2.7.2.686 [place] [id number] 160 2020-06-11 2020-06-11 Telephone [facility] 1.2.943.196 5354 4860 [facility] 00:00:00 00:00:00 Felix SPECIALTY 350.1.13.10 ity [facility] 4.2.7.2.[id number] [facility] [address] 2020-03-13 2020-03-[address] [facility] 1.2.840.114 [id number] 91 00:00:00 00:00:00 Felix SPECIALTY 350.1.13.10 [facility] 4.2.7.2.686 [place] [id number] [facility] 2020-03-13 2020-03-13 [facility] 1.2.840.114 [id number] 91 Univers 00:00:00 00:00:00 Felix SPECIALTY 350.1.13.10 ity of [facility] 4.2.7.2.686 [place] as [place] [id number] [address] 2020-03-11 2020-03-11 [facility] 1.2.840.114 [id number] 30 00:00:00 00:00:00 Felix SPECIALTY 350.1.13.10 Rl [place] 4.2.7.2.686 [place] [id number] [facility] 2020-03-11 2020-03-11 Telephone [facility] 1.2.924.525 2551 7886 00:00:00 00:00:00 Felix SPECIALTY 350.1.13.10 Standard [place] 4.2.7.2.686 [place] 310.8929134 [facility] 2020-03-11 2020-03-11 [facility] 1.2.840.114 [id number] 30 Univers 00:00:00 00:00:00 Felix SPECIALTY 350.1.13.10 ity of [facility] 4.2.7.2.686 [place] [id number] [address] 2020-03-11 2020-03-11 Telephone [facility] 1.2.781.474 4614 7886 Univers 00:00:00 00:00:00 Felix SPECIALTY 350.1.13.10 ity of [facility] 4.2.7.2.686 [place] [id number] [address] 2020-03-06 2020-03-06 Telephone [facility] 1.2.152.894 2349 4433 00:00:00 00:00:00 Felix SPECIALTY 350.1.13.10 Rl [place] 4.2.7.2.686 [place] [id number] [facility] 2020-03-06 2020-03-06 Telephone [facility] 1.2.384.401 0500 4433 Univers 00:00:00 00:00:00 Felix SPECIALTY 350.1.13.10 ity of [facility] 4.2.7.2.686 [place]ales as [place] 695.2500984 [address] 2020-03-04 2020-03-04 RefWashburn, [facility] 1.2.840.114 [id number] 54 00:00:00 00:00:00 Felix SPECIALTY 350.1.13.10 [facility] 4.2.7.2.686 [place] [id number] 401 2020-03-04 2020-03-[address] [facility] 1.2.840.114 [id number] 54 Univers 00:00:00 00:00:00 Felix SPECIALTY 350.1.13.10 ity of [facility] 4.2.7.2.686 [place]ales as [place] [id number] [address] 2019-11-07 2019-11-[address] [facility] 1.2.840.114 [id number] 83 00:00:00 00:00:00 Felix SPECIALTY 350.1.13.10 [facility] 4.2.7.2.686 [place] [id number] 401 2019-11-07 2019-11-07 Refill [facility] 1.2.840.114 [id number] 83 Univers 00:00:00 00:00:00 Felix SPECIALTY 350.1.13.10 ity of [facility] 4.2.7.2.686 [place]ales as [place] [id number] [address] 2019-10-23 2019-10-23 Telephone [facility] 1.2.467.077 0108 7946 00:00:00 00:00:00 Felix SPECIALTY 350.1.13.10 [facility] 4.2.7.2.686 [place] [id number] 401 2019-10-23 2019-10-23 Telephone [facility] 1.2.084.922 1860 7946 Univers 00:00:00 00:00:00 Felix SPECIALTY 350.1.13.10 ity of [facility] 4.2.7.2.686 [place] [id number] [address] 2019-10-22 2019-10-22 [facility] 1.2.840.114 [id number] 87 00:00:00 00:00:00 Felix SPECIALTY 350.1.13.10 [facility] 4.2.7.2.686 [place] [id number] 401 2019-10-22 2019-10-[address] [facility] 1.2.840.114 [id number] 87 Univers 00:00:00 00:00:00 Felix SPECIALTY 350.1.13.10 ity of [place] 4.2.7.2.686 [place]ales as [place] [id number] [address] 2019-09-06 2019-09-06 Telephone [facility] 1.2.088.371 8363 8654 00:00:00 00:00:00 Felix SPECIALTY 350.1.13.10 Rl [place] 4.2.7.2.686 [place] [id number] [facility] 2019-09-06 2019-09-06 Telephone [facility] 1.2.402.407 8780 8654 Univers 00:00:00 00:00:00 Felix SPECIALTY 350.1.13.10 ity of [place] 4.2.7.2.686 [place]ales as [place] [id number] [address] 2019-08-14 2019-08-14 Telephone [facility] 1.2.603.494 2928 3924 00:00:00 00:00:00 Felix SPECIALTY 350.1.13.10 Rl [place] 4.2.7.2.686 [place] [id number] [facility] 2019-08-14 2019-08-14 Telephone [facility] 1.2.941.781 3914 3924 [facility] 00:00:00 00:00:00 Felix SPECIALTY 350.1.13.10 ity of [facility] 4.2.7.2.686 [place] as [place] [id number] [address] 2019-08-03 2019-08-03 Telephone [facility] 1.2.211.656 4759 8343 00:00:00 00:00:00 Felix SPECIALTY 350.1.13.10 Rl [place] 4.2.7.2.686 [place] [id number] [facility] 2019-08-03 2019-08-03 Telephone [facility] 1.2.211.077 1628 8343 [facility] 00:00:00 00:00:00 Felix SPECIALTY 350.1.13.10 ity of [facility] 4.2.7.2.686 [place] as [place] [id number] [address] 2019-07-31 2019-07-31 Telephone [facility] 1.2.328.438 9365 1156 00:00:00 00:00:00 Felix SPECIALTY 350.1.13.10 [facility] 4.2.7.2.686 [place] [id number] 401 2019-07-31 2019-07-31 [place] Jethro [facility] 1.2.802.664 6684 1156 Univers 00:00:00 00:00:00 Felix SPECIALTY 350.1.13.10 ity of [facility] 4.2.7.2.686 [place] [id number] [address] 2019-03-27 2019-03-[address] [place] [address] [facility] 1.2.840.114 713 35909 00:00:00 00:00:00 Steve SPECIALTY 350.1.13.10 [facility] 4.2.7.2.686 [place] [id number] 147 2019-03-27 2019-03-[address] [place] [address] [facility] 1.2.840.114 713 24366 [facility] 00:00:00 00:00:00 Steve SPECIALTY 350.1.13.10 ity of [facility] [place] [id number] [address] 2019-03-27 2019-03-27 [facility] Moodye[facility] 1.2.840.114 [id number] 88 Univers 00:00:00 00:00:00 Felix SPECIALTY 350.1.13.10 ity of [facility] 4.2.7.2.686 [place] [id number] [address] 2019-03-27 2019-03-27 [facility] 1.2.840.114 [id number] 88 00:00:00 00:00:00 Felix SPECIALTY 350.1.13.10 [facility] 4.2.7.2.686 [place] [id number] 401 2019-03-23 2019-03-[address] [facility] 1.2.840.114 71 [id number] Univers 00:00:00 00:00:00 Zana Antonio SPECIALTY 350.1.13.10 [place]y [place] [id number] [address] 2019-03-23 2019-03-[address] [facility] 1.2.840.114 71 [id number] 00:00:00 00:00:00 Zana Antonio SPECIALTY 350.1.13.10 [place] 4.2.7.2.686 [place] [id number] 147 2019-03-22 2019-03-[address] [facility] 1.2.840.114 37082 102 Univers 00:00:00 00:00:00 Steve SPECIALTY 350.1.13.10 ity of [facility] [place].2.7.2.[place] [id number] [place] [address] [address] 2019-03-22 2019-03-22 [facility]alshirley [facility] 1.2.840.114 [id number] 102 00:00:00 00:00:00 Steve SPECIALTY 350.1.13.10 [facility] 4.2.7.2.686 [place] [id number] 147 2019-03-13 2019-03-[address] [facility] 1.2.371.445 3370 6717 Univers 00:00:00 00:00:00 Felix SPECIALTY 350.1.13.10 ity of [facility] 4.2.7.2.686 [place] [address] 236.9880[address] [facility] [address] 2019-03-13 2019-03-[address] [facility] 1.2.764.292 1364 6717 00:00:00 00:00:00 Felix SPECIALTY 350.1.13.10 [facility] 4.2.7.2.686 [place] [id number] 401 2019-03-06 2019-03-[address] [facility] 1.2.958.490 6888 9621 Univers 00:00:00 00:00:00 Felix SPECIALTY 350.1.13.10 ity of [facility] 4.2.7.2.686 [place] [address] [id number] [facility] [address] 2019-03-06 2019-03-[address] [facility] [id number] [id number] 00:00:00 00:00:00 Felix SPECIALTY 350.1.13.10 [facility] 4.2.7.2.686 [place] [id number] 401 2019-03-02 2019-03-02 Telephone Estefania [facility] 1.2.840.114 [id number] Univers 00:00:00 00:00:00 Steve SPECIALTY 350.1.13.10 ity of [facility] [place] [id number] [address] 2019-03-02 2019-03-[address] [facility] [id number] [id number] 0622 Univers 00:00:00 00:00:00 Felix SPECIALTY 350.1.13.10 ity of [facility] 4.2.7.2.686 [place] [id number] [address] 2019-03-01 2019-03-[address] [facility] 1.2.840.[id number] [place] [address] 10:54:40 12:12:56 Visit Felix SPECIALTY 350.1.13.10 ity of [facility] 4.2.7.2.686 [place] [id number] [address] 2019-03-01 2019-03-01 Office [facility] 1.2.840.114 [id number] 10:54:40 12:12:56 Visit Felix SPECIALTY 350.1.13.10 [facility] 4.2.7.2.686 [place] [id number] [facility] 2019-02-23 2019-02-23 Nurse Nurse, Namrata Moyer [facility] 1.2.840.114 [id number] [facility] 10:22:25 10:52:25 Visit Felix Morelos SPECIALTY 350.1 .13.10 ity of [place] [id number] [address] 2019-02-22 2019-02-[address] [facility] 1.2.177.952 [id number] Univers 00:00:00 00:00:00 Felix SPECIALTY 350.1.13.10 ity of [facility] 4.2.7.2.686 [place] [id number] [address] 2019-02-21 2019-02-[address] [facility] 1.2.840.114 [id number] Univers 00:00:00 00:00:00 Zana Antonio SPECIALTY 350.1.13.10 ity of [place] [id number] [place] [address] [address] 2019-02-13 2019-02-13 Refshirley Estefania [facility] 1.2.840.114 [id number] Univers 00:00:00 00:00:00 Steve SPECIALTY 350.1.13.10 [facility] [place] [id number] [place] [address] [address] 2018-03-08 2018-03-08 Office Jethro [facility] 1.2.840.114 [id number] Univers 13:45:32 16:04:10 Visit Felix SPECIALTY 350.1.13.10 ity of [facility] 4.2.7.2.686 [place] [id number] [place] [address] [address] Results Test Description Test Time Test Comments Results Result Comments Source CBC WITH DIFF 2023-03-10 00:39:04 Test Item Value Reference Range Interpretation Comme nts WBC (test code = 6690-2) 16.24 See_Comment H [A utomated message] The system which ge nerated this result transmit rosanne reference range: 4.20 - 1 0.70 10*3/?L. The reference r genaro was not used to interpr et this result as normal/abnor mal. RBC (test code = 789-8) 5.34 See_Comment [Au tomated message] The system which [employer] nerated this result transmit rosanne reference range: 4.26 - 5 .52 10*6/?L. The reference r genaro was not used to interpr et this result as normal/abnor mal. HGB (test code = 718-7) 17.3 g/dL 12.2-16.4 H HCT (test code = 4544-3) 47.6 % 38.4-49.3 MCV (test code = 787-2) 89.1 fL 81.7-95.6 MCH (test code = 785-6) 32.4 pg 26.1-32.7 MCHC (test code = 786-4) 36.3 g/dL 31.2-35.0 H RDW-SD (test code = 41883-6) 39.5 fL 38.5-51.6 RDW-CV (test code = 788-0) 12.1 % 12.1-15.4 PLT (test code = 777-3) 533 See_Comment H [Au tomated message] The system which ge nerated this result transmit rosanne reference range: 150 - 32 8 10*3/?L. The reference range was not used to interpret th is result as normal/abnormal . MPV (test code = 61478-3) 8.9 fL 9.8-13.0 L NRBC/100 WBC (test code = 0.0 See_Comment [ Automated message] The 6425348359) system which ge nerated this result transmit rosanne reference range: 0.0 - 10 .0 /100 WBCs. The reference r genaro was not used to interpr et this result as normal/abnor mal. NRBC x10^3 (test code = See_Comment [Au tomated message] The 7023204897) system which [employer] nerated this result transmit rosanne reference range: 10*3/?L. The reference range was not u sed to interpret this result as normal/abnormal . GRAN MAT (NEUT) % (test code 47.4 % = 770-8) IMM GRAN % (test code = 0.70 % 0578805448) LYMPH % (test code = 736-9) 43.5 % MONO % (test code = 5905-5) 8.1 % EOS % (test code = 713-8) 0.0 % BASO % (test code = 706-2) 0.3 % GRAN MAT x10^3(ANC) (test 7.69 10*3/uL 1.99-6.95 H code = 0182472173) IMM GRAN x10^3 (test code = 0.12 10*3/uL 0.00-0.06 H 8930596706) LYMPH x10^3 (test code = 7.07 10*3/uL 1.09-3.23 H 731-0) MONO x10^3 (test code = 1.31 10*3/uL 0.36-1.02 H 742-7) EOS x10^3 (test code = 0.06-0.53 L 711-2) BASO x10^3 (test code = 0.05 10*3/uL 0.01-0.09 704-7) Lab Interpretation (test Abnormal code = 26316-3) [facility]. METABOLIC PANEL ([id number])2023-03-10 00:18:33 Test Item Value Reference Range Interpretation Comments NA (test code = 141 mmol/L 135-145 9537328515) K (test code = 3.8 mmol/L 3.5-5.0 7322242003) CL (test code = 105 mmol/L 98-108 3313851078) CO2 TOTAL (test code = 26 mmol/L 23-31 0913093776) AGAP (test code = 10 2-16 7452694564) BUN (test code = 15 mg/dL 7-23 3363532964) GLUCOSE (test code = 101 mg/dL 70-110 9341299369) CREATININE (test code = 0.69 mg/dL 0.60-1.25 7710617712) TOTAL BILI (test code = 0.8 mg/dL 0.1-1.5 1740914970) CALCIUM (test code = 9.5 mg/dL 8.6-10.6 3792379639) T PROTEIN (test code = 8.3 g/dL 6.3-8.2 H 4071106099) ALBUMIN (test code = 4.9 g/dL 3.5-5.0 0079426381) ALK PHOS (test code = 110 U/L 34-122 1489428608) ALTv (test code = 23 U/L 5-50 1742-6) AST(SGOT) (test code = 33 U/L 13-40 4541562983) eGFR (test code = 147.7 mL/min/1.73m2 1397968097) JAMAL (test code = JAMAL) Association of [...] tests). Lab Interpretation Abnormal (test code = 91827-8) [id number] 23:57:46 Test Item Value Reference Range Interpretation Comments NT-proBNP (test code = 49796-1) <=125 Lab Interpretation (test code = Normal 69010-8) [facility] [id number] 23:56:50 Test Item Value Reference Range Interpretation Comments TROPONIN I (test code = 0.007 ng/mL <=0.034 9768717660) JAMAL (test code = JAMAL) Reference (Normal) [...] biotin. Lab Interpretation Normal (test code = 31802-4) [facility] METABOLIC PANEL ([id number])2023-03-03 23:45:54 Test Item Value Reference Range Interpretation Comments NA (test code = 142 mmol/L 135-145 0482563386) K (test code = 3.4 mmol/L 3.5-5.0 L 6545071261) CL (test code = 102 mmol/L 98-108 9061825954) CO2 TOTAL (test code = 25 mmol/L 23-31 3522051697) AGAP (test code = 15 2-16 8540430867) BUN (test code = 14 mg/dL 7-23 7396723651) GLUCOSE (test code = 119 mg/dL 70-110 H 4795180162) CREATININE (test code = 0.79 mg/dL 0.60-1.25 9326132718) TOTAL BILI (test code = 1.0 mg/dL 0.1-1.8 5550642648) CALCIUM (test code = 9.5 mg/dL 8.6-10.6 4262269289) T PROTEIN (test code = 8.1 g/dL 6.3-8.2 4309832569) ALBUMIN (test code = 4.8 g/dL 3.5-5.0 1516037608) ALK PHOS (test code = 106 U/L 34-122 2270180807) ALTv (test code = 21 U/L 5-50 1742-6) AST(SGOT) (test code = 44 U/L 13-40 H 2270335073) eGFR (test code = 126.4 mL/min/1.73m2 9092426818) JAMAL (test code = JAMAL) Association of [...] tests). Lab Interpretation Abnormal (test code = 13776-9) [facility] WITH [id number] 06:35:36 Test Item Value Reference Range Interpretation Comments WBC (test code = 6690-2) 13.74 See_Comment H [A utomated message] The system [employer] generated this result transmit rosanne reference range : 4.20 - 10.70 10*3/?L. The reference range was not used to interpret this result as normal/abnormal . RBC (test code = 789-8) 5.01 See_Comment [Au tomated message] The system [employer] generated this result transmit rosanne reference range [...] RDW-SD (test code = 40.8 fL 38.5-51.6 32074-5) RDW-CV (test code = 12.3 % 12.1-15.4 788-0) PLT (test code = 777-3) 510 See_Comment H [Au tomated message] The system [employer] generated this result transmit rosanne reference range : 150 - 328 10*3/?L. The reference range was not used to interpret this result as normal/abnormal . MPV (test code = 9.2 fL 9.8-13.0 L 25142-0) NRBC/100 WBC (test code 0.0 See_Comment [Au tomated message] = 6223310986) The system [facility] generated this result transmit rosanne reference range : 0.0 - 10.0 /100 WBC s. The reference r genaro was not used to interpret this result as normal/abnormal . NRBC x10^3 (test code = See_Comment [Au tomated message] 6795358193) The system [facility] generated this result transmit rosanne reference range : 10*3/?L. The reference range was not used to interpret this result as normal/abnormal . SEG % (test code = 40 % 33-76 47841-8) LYMPH % (test code = 51 % 14-54 35057-0) MONO % (test code = 9 % 0-4 H 83547-8) PLT ESTIMATE (test code Increased Normal A = 9317-9) GIANT PLATELETS (test Present See_Comment A [Auto mated message] code = 5908-9) The system [facility] generated this result transmit rosanne reference range : (none). The reference range was not used to interpret this result as normal/abnormal . Lab Interpretation (test Abnormal code = 01155-5) [facility] [id number] 06:11:22 Test Item Value Reference Range Interpretation Comments TROPONIN I (test code = 0.002 ng/mL <=0.034 0873067531) JAMAL (test code = JAMAL) Reference (Normal) [...] biotin. Lab Interpretation Normal (test code = 04336-5) [facility] METABOLIC PANEL ([id number])2023-02-01 06:00:02 Test Item Value Reference Range Interpretation Comments NA (test code = 141 mmol/L 135-145 8098850766) K (test code = 4.0 mmol/L 3.5-5.0 9721190493) CL (test code = 103 mmol/L 98-108 0152210897) CO2 TOTAL (test code 27 mmol/L 23-31 = 4416333290) AGAP (test code = 11 2-16 8835821419) BUN (test code = 15 mg/dL 7-23 0332638362) GLUCOSE (test code = 93 mg/dL 70-110 8072409337) CREATININE (test code 0.91 mg/dL 0.60-1.25 = 0765959613) TOTAL BILI (test code 0.8 mg/dL 0.1-1.1 = 4951690249) CALCIUM (test code = 9.8 mg/dL 8.6-10.6 6655519522) T PROTEIN (test code 7.3 g/dL 6.3-8.2 = 2163160148) ALBUMIN (test code = 4.6 g/dL 3.5-5.0 8038142283) ALK PHOS (test code = 117 U/L 34-122 2650011809) ALTv (test code = 19 U/L 5-50 2-6) AST(SGOT) (test code 22 U/L 13-40 = 2183092897) eGFR (test code = 107.3 mL/min/1.73m2 1462842119) JAMAL (test code = JAMAL) Association of [...] or urine or abnormalities in imaging tests). [facility] GLUCOSE (AUTOMATED)2023-01-18 14:52:41 Test Item Value Reference Range Interpretation Comments POCT GLU (test code = 4466388361) 110 mg/dL 70-110 Lab Interpretation (test code = Normal 98859-1) [facility] GLUCOSE (AUTOMATED)2023-01-18 14:52:41 Test Item Value Reference Range Interpretation Comments POCT GLU (test code = 2620732726) 110 mg/dL 70-110 Lab Interpretation (test code = Normal 41519-1) [facility] WITH [id number] 15:02:31 Test Item Value Reference Range Interpretation Comments WBC (test code = 11.06 See_Comment H [Automated 6690-2) message] The system which generated this result transmit rosanne reference range : 4.20 - 10.70 10*3/?L. The reference range was not used to interpret this result as normal/abnormal . RBC (test code = 5.24 See_Comment [Automated 519-8) message] The system which generated this result [...] RDW-SD (test code = 42.2 fL 38.5-51.6 04381-9) RDW-CV (test code = 12.5 % 12.1-15.4 788-0) PLT (test code = 510 See_Comment H [Automated 777-3) message] The system which generated this result transmit rosanne reference range : 150 - 328 10*3/ ?L. The reference range was not u sed to interpret th is result as normal/abnormal . MPV (test code = 8.8 fL 9.8-13.0 L 63729-5) NRBC/100 WBC (test 0.0 See_Comment [Automat ed code = 2343815530) message] The system which generated this result transmit rosanne reference range : 0.0 - 10.0 /100 WBCs. The reference range was not used to interpret this result as normal/abnormal . NRBC x10^3 (test code See_Comment [Auto mated = 4893088292) message] The system which generated this result transmit rosanne reference range : 10*3/?L. The reference range was not used to interpret this result as normal/abnormal . GRAN MAT (NEUT) % 51.0 % (test code = 770-8) IMM GRAN % (test code 0.80 % = 7367794621) LYMPH % (test code = 37.1 % 736-9) MONO % (test code = 10.6 % 5905-5) EOS % (test code = 0.0 % 713-8) BASO % (test code = 0.5 % 706-2) GRAN MAT x10^3(ANC) 5.65 10*3/uL 1.99-6.95 (test code = 8268401956) IMM GRAN x10^3 (test 0.09 10*3/uL 0.00-0.06 H code = 2836458399) LYMPH x10^3 (test code 4.10 10*3/uL 1.09-3.23 [...] 7795-8) REACT LYMPHS (test Rare code = 7324612972) Lab Interpretation Abnormal (test code = 76819-5) [facility] METABOLIC PANEL (NA, K, CL, CO2, GLUCOSE, BUN, CREATININE, CA)2023-01-15 13:56:39 Test Item Value Reference Range Interpretation Comments NA (test code = 142 mmol/L 135-145 2857400613) K (test code = 3.9 mmol/L 3.5-5.0 4565806331) CL (test code = 105 mmol/L 98-108 4328314377) CO2 TOTAL (test code 26 mmol/L 23-31 = 2484652328) AGAP (test code = 11 2-16 6995118629) BUN (test code = 9 mg/dL 7-23 6581675302) GLUCOSE (test code = 97 mg/dL 70-110 1792524181) CREATININE (test code 0.73 mg/dL 0.60-1.25 = 5073211585) CALCIUM (test code = 9.5 mg/dL 8.6-10.6 0753944467) eGFR (test code = 138.4 mL/min/1.73m2 7530744587) JAMAL (test code = JAMAL) Association of [...] or urine or abnormalities in imaging tests). [facility] 13:06:00 Test Item Value Reference Range Interpretation Comments ABO & RH (test code = 20) O Negative IAT (test code = 1185) Negative [facility] 11:37:51 Test Item Value Reference Range Interpretation Comments LIPASE (test code = 2910561710) 64 U/L 0-220 Lab Interpretation (test code = Normal 52370-3) [facility] (LEVETIRACETAM)2022-10-29 10:13:11 Test Item Value Reference Range Interpretation Comments KEPPRA (test code = 12-46 L 5433798275) JAMAL (test code = JAMAL) Therapeutic range: 12-46 ?g/mL ? ?Toxic: Not well established.Test developed and characteristics determined by [facility] Laboratory Services. Lab Interpretation Abnormal (test code = 89691-1) [facility]OLIC PAN[facility] (02518)2022-10-29 10:01:02 Test Item Value Reference Range Interpretation Comments NA (test code = 139 mmol/L 135-145 6080478023) K (test code = 4.4 mmol/L 3.5-5.0 6598754807) CL (test code = 105 mmol/L 98-108 5990615284) CO2 TOTAL (test code 28 mmol/L 23-31 = 0423936651) AGAP (test code = 6 2-16 8542037018) BUN (test code = 14 mg/dL 7-23 7083988391) GLUCOSE (test code = 100 mg/dL 70-110 3922731656) CREATININE (test code 0.78 mg/dL 0.60-1.25 = 1256273427) TOTAL BILI (test code 0.9 mg/dL 0.1-1.1 = 4040874063) CALCIUM (test code = 9.6 mg/dL 8.6-10.6 7474836902) T PROTEIN (test code 7.1 g/dL 6.3-8.2 = 0707682873) ALBUMIN (test code = 4.7 g/dL 3.5-5.0 3338129167) ALK PHOS (test code = 114 U/L 34-122 5373517114) ALTv (test code = 21 U/L 5-50 1742-6) AST(SGOT) (test code 37 U/L 13-40 = 7321577656) eGFR (test code = 129.6 mL/min/1.73m2 1573339052) JAMAL (test code = JAMAL) Association of [...] or urine or abnormalities in imaging tests). [facility] 10:01:02 Test Item Value Reference Range Interpretation Comments MAGNESIUM (test code = 9435873527) 2.2 mg/dL 1.7-2.4 Lab Interpretation (test code = Normal 73021-0) [facility] WITH [id number] 09:57:59 Test Item Value Reference Range Interpretation [...] RDW-SD (test code = 39.8 fL 38.5-49.0 08505-5) RDW-CV (test code = 12.2 % 11.5-14.0 788-0) PLT (test code = 500 See_Comment H [Automated 777-3) message] The sy stem which generated this result transmitted reference range : 133 - 320 10*3/ ?L. The reference r genaro was not used to interpret this result as normal/abnormal . MPV (test code = 8.9 fL 9.3-12.9 L 83378-0) NRBC/100 WBC (test 0.0 See_Comment [Automat ed code = 0205421381) message] The system which generated this result transmitted reference range : 0.0 - 10.0 /100 WBCs. The refer ence range was not u sed to interpret th is result as normal/abnormal . NRBC x10^3 (test code See_Comment [Auto mated = 6526686802) message] The s ystem which generated this result transmitted reference range : 10*3/?L. The reference range was not used to interpret this result as normal/abnormal . GRAN MAT (NEUT) % 36.2 % (test code = 770-8) IMM GRAN % (test code 0.90 % = 7633162260) LYMPH % (test code = 53.2 % 736-9) MONO % (test code = 9.4 % 5905-5) EOS % (test code = 0.0 % 713-8) BASO % (test code = 0.3 % 706-2) GRAN MAT x10^3(ANC) 5.17 10*3/uL 1.50-10.30 (test code = 5476000264) IMM GRAN x10^3 (test 0.13 10*3/uL 0.00-0.06 H code = 9696771592) LYMPH x10^3 (test code 7.61 10*3/uL 0.70-7.40 H = 731-0) MONO x10^3 (test code 1.35 10*3/uL 0.00-0.50 H = 742-7) EOS x10^3 (test code = 0.00-0.40 711-2) BASO x10^3 (test code 0.04 10*3/uL 0.00-0.10 = 704-7) HJ BODIES (test code = Present A 7793-3) REACT LYMPHS (test Rare code = 9678148985) Lab Interpretation Abnormal (test code = 49377-0) [facility] WITH [id number] 02:35:47 Test Item Value Reference Range Interpretation [...] RDW-SD (test code = 39.6 fL 38.5-49.0 29018-5) RDW-CV (test code = 12.1 % 11.5-14.0 788-0) PLT (test code = 486 See_Comment H [Automated 777-3) message] The sy stem which generated this result transmitted reference range : 133 - 320 10*3/ ?L. The reference r genaro was not used to interpret this result as normal/abnormal . MPV (test code = 9.1 fL 9.3-12.9 L 71316-8) NRBC/100 WBC (test 0.0 See_Comment [Automat ed code = 3984324819) message] The system which generated this result transmitted reference range : 0.0 - 10.0 /100 WBCs. The refer ence range was not u sed to interpret th is result as normal/abnormal . NRBC x10^3 (test code See_Comment [Auto mated = 2499839753) message] The s ystem which generated this result transmitted reference range : 10*3/?L. The reference range was not used to interpret this result as normal/abnormal . SEG % (test code = 40 % 33-76 87329-0) LYMPH % (test code = 50 % 15-55 65134-2) MONO % (test code = 10 % 0-4 H 81854-4) ANC (test code = 4.67 10*3/uL 1.50-10.30 753-4) Lab Interpretation Abnormal (test code = 32202-6) [facility] [id number] 02:22:04 Test Item Value Reference Range Interpretation Comments TROPONIN I (test code = 0.002 ng/mL <=0.034 8769830965) JAMAL (test code = JMAAL) Reference (Normal) Range (defined by the 99th [...] biotin. Lab Interpretation Normal (test code = 58922-4) [facility]D-RSQYW6673-35-14 02:12:53 Test Item Value Reference Interpretation Comments Range D-DIMER (test code = See_Comment [Autom ated 3333897391) message] The system which generated this result [...] diagnosis. Lab Interpretation Normal (test code = 35152-8) [facility] METABOLIC PANEL (68896)2022-10-28 02:10:47 Test Item Value Reference Range Interpretation Comments NA (test code = 141 mmol/L 135-145 0188262035) K (test code = 4.1 mmol/L 3.5-5.0 1339508219) CL (test code = 107 mmol/L 98-108 1339023220) CO2 TOTAL (test code 23 mmol/L 23-31 = 8271138568) AGAP (test code = 11 2-16 5494176802) BUN (test code = 15 mg/dL 7-23 4999345104) GLUCOSE (test code = 104 mg/dL 70-110 5310950631) CREATININE (test code 0.73 mg/dL 0.60-1.25 = 3028068294) TOTAL BILI (test code 0.8 mg/dL 0.1-1.1 = 4976136359) CALCIUM (test code = 9.4 mg/dL 8.6-10.6 4161955124) T PROTEIN (test code 7.0 g/dL 6.3-8.2 = 7092560513) ALBUMIN (test code = 4.6 g/dL 3.5-5.0 4267376215) ALK PHOS (test code = 109 U/L 34-122 3253900261) ALTv (test code = 21 U/L 5-50 1742-6) AST(SGOT) (test code 23 U/L 13-40 = 2609718788) eGFR (test code = 139.9 mL/min/1.73m2 8178215764) JAMAL (test code = JAMAL) Association of [...] or urine or abnormalities in imaging tests). [facility] WITH [id number] 05:00:52 Test Item Value Reference Range Interpretation Comments WBC (test code = 11.83 See_Comment [Automated 5115-2) message] The system which generated this result transmit rosanne reference range : 4.50 - 13.50 10*3/?L. The reference range was not used to interpret this result as normal/abnormal . RBC (test code = 4.93 See_Comment [Automated 414-8) message] The system which generated this result [...] RDW-SD (test code = 39.3 fL 38.5-49.0 64062-9) RDW-CV (test code = 11.9 % 11.5-14.0 788-0) PLT (test code = 450 See_Comment H [Automated 137-3) message] The system which generated this result transmit rosanne reference range : 133 - 320 10*3/ ?L. The reference range was not u sed to interpret th is result as normal/abnormal . MPV (test code = 9.2 fL 9.3-12.9 L 99269-5) NRBC/100 WBC (test 0.0 See_Comment [Automat ed code = 4701840751) message] The system which generated this result transmit rosanne reference range : 0.0 - 10.0 /100 WBCs. The reference range was not used to interpret this result as normal/abnormal . NRBC x10^3 (test code See_Comment [Auto mated = 6377221214) message] The system which generated this result transmit rosanne reference range : 10*3/?L. The reference range was not used to interpret this result as normal/abnormal . GRAN MAT (NEUT) % 34.0 % (test code = 770-8) IMM GRAN % (test code 0.60 % = 5001325589) LYMPH % (test code = 54.3 % 736-9) MONO % (test code = 9.2 % 5905-5) EOS % (test code = 1.6 % 713-8) BASO % (test code = 0.3 % 706-2) GRAN MAT x10^3(ANC) 4.03 10*3/uL 1.50-10.30 (test code = 2176203100) IMM GRAN x10^3 (test 0.07 10*3/uL 0.00-0.06 H code = 5454068777) LYMPH x10^3 (test code 6.42 10*3/uL 0.70-7.40 = 731-0) MONO x10^3 (test code 1.09 10*3/uL 0.00-0.50 H = 742-7) EOS x10^3 (test code = 0.19 10*3/uL 0.00-0.40 711-2) BASO x10^3 (test code 0.03 10*3/uL 0.00-0.10 = 704-7) SIDEROTIC GRAN (test Suggestive of A code = 7795-8) REACT LYMPHS (test Rare code = 8738919045) Lab Interpretation Abnormal (test code = 81135-0) [facility] METABOLIC PANEL (60172)2022-10-09 04:54:22 Test Item Value Reference Range Interpretation Comments NA (test code = 142 mmol/L 135-145 4376083303) K (test code = 4.0 mmol/L 3.5-5.0 9412566004) CL (test code = 108 mmol/L 98-108 0937727893) CO2 TOTAL (test code 25 mmol/L 23-31 = 4534585944) AGAP (test code = 9 2-16 7920621471) BUN (test code = 9 mg/dL 7-23 9708070398) GLUCOSE (test code = 106 mg/dL 70-110 8427253135) CREATININE (test code 0.74 mg/dL 0.60-1.25 = 2857219277) TOTAL BILI (test code 0.7 mg/dL 0.1-1.1 = 8663002658) CALCIUM (test code = 9.4 mg/dL 8.6-10.6 1460497630) T PROTEIN (test code 6.9 g/dL 6.3-8.2 = 7830095965) ALBUMIN (test code = 4.4 g/dL 3.5-5.0 6592189072) ALK PHOS (test code = 90 U/L 34-122 3958371131) ALTv (test code = 18 U/L 5-50 1742-6) AST(SGOT) (test code 22 U/L 13-40 = 4651101676) eGFR (test code = 137.8 mL/min/1.73m2 7791170929) JAMAL (test code = JAMAL) Association of [...] or urine or abnormalities in imaging tests). [facility] 04[facility]53:42 Test Item Value Reference Range Interpretation Comments LIPASE (test code = 0433729510) 106 U/L 0-220 Lab Interpretation (test code = Normal 16629-4) [facility] [id number] 06:31:17 Test Item Value Reference Range Interpretation Comments NT-proBNP (test code See_Comment [Autom ated = 9780264174) message] The system which generated this result transmitted reference range : <=125. The reference range was not used to interpret this result as normal/abnormal . JAMAL (test code = JAMAL) Biotin has been reported to cause a negative bias, interpret results relative to patient's use of biotin. Lab Interpretation Normal (test code = 84193-2) [facility] WITH [id number] 06:22:31 Test Item Value Reference Range Interpretation Comments WBC (test code = See_Comment H [Automated 2290-2) message] The sy stem which generated this result transmitted reference range : 4.50 - 13.50 10*3/?L. The reference range was not used to interpret this result as normal/abnormal . RBC (test code = See_Comment [Automated 739-8) message] The sy stem which generated this [...] RDW-SD (test code = 43.3 fL 38.5-49.0 29800-2) RDW-CV (test code = 13.1 % 11.5-14.0 788-0) PLT (test code = See_Comment H [Automated 777-3) message] The sy stem which generated this result transmitted reference range : 133 - 320 10*3/ ?L. The reference r genaro was not used to interpret this result as normal/abnormal . MPV (test code = 8.9 fL 9.3-12.9 L 78446-8) NRBC/100 WBC (test See_Comment [Automat ed code = 4223691774) message] The system which generated this result transmitted reference range : 0.0 - 10.0 /100 WBCs. The refer ence range was not u sed to interpret th is result as normal/abnormal . NRBC x10^3 (test code See_Comment [Auto mated = 8151164739) message] The s ystem which generated this result transmitted reference range : 10*3/?L. The reference range was not used to interpret this result as normal/abnormal . GRAN MAT (NEUT) % 40.3 % (test code = 770-8) IMM GRAN % (test code 2.30 % = 1510535288) LYMPH % (test code = 33.9 % 736-9) MONO % (test code = 9.1 % 5905-5) EOS % (test code = 13.1 % 713-8) BASO % (test code = 1.3 % 706-2) GRAN MAT x10^3(ANC) 5.45 10*3/uL 1.50-10.30 (test code = 8163405934) IMM GRAN x10^3 (test 0.31 10*3/uL 0.00-0.06 H code = 1741938874) LYMPH x10^3 (test code 4.60 10*3/uL 0.70-7.40 = 731-0) MONO x10^3 (test code 1.24 10*3/uL 0.00-0.50 H = 742-7) EOS x10^3 (test code = 1.78 10*3/uL 0.00-0.40 H 711-2) BASO x10^3 (test code 0.18 10*3/uL 0.00-0.10 H = 704-7) REACT LYMPHS (test Moderate code = 1058071105) Lab Interpretation Abnormal (test code = 76304-6) [id number] Test Item Value Reference Interpretation Comments Range TROPONIN I (test 0.001 ng/mL See_Comment [Automated code = [id number]) message] The system which generated this result [...] biotin. Lab Interpretation Normal (test code = 08735-6) [facility]. METABOLIC PANEL (19692)2022-06-21 06:09:03 Test Item Value Reference Range Interpretation Comments NA (test code = 138 mmol/L 135-145 1289098546) K (test code = 4.4 mmol/L 3.5-5.0 1582205458) CL (test code = 104 mmol/L 98-108 6547662304) CO2 TOTAL (test code = 27 mmol/L 23-31 2881928045) AGAP (test code = 2-16 6362066463) BUN (test code = 10 mg/dL 7-23 7405151331) GLUCOSE (test code = 115 mg/dL 70-110 H 7473124754) CREATININE (test code = 0.71 mg/dL 0.60-1.25 3728674685) TOTAL BILI (test code = 0.8 mg/dL 0.1-1.5 5601302746) CALCIUM (test code = 9.6 mg/dL 8.6-10.6 7920799911) T PROTEIN (test code = 6.6 g/dL 6.3-8.2 5955324450) ALBUMIN (test code = 4.3 g/dL 3.5-5.0 5193615672) ALK PHOS (test code = 107 U/L 34-122 4157420417) ALTv (test code = 27 U/L 5-50 1742-6) AST(SGOT) (test code = 29 U/L 13-40 4596522941) eGFR (test code = mL/min/1.73m2 7349310270) JAMAL (test code = JAMAL) Association of [...] tests). Lab Interpretation Abnormal (test code = 08726-2) [facility] [id number] 06:07:03 Test Item Value Reference Range Interpretation Comments APTT Patient (test See_Comment [Automat ed code = 3173-2) message] The system which generated this result transmitted reference range : 23 - 38 Seconds . The reference range was not used to interpr et this result as normal/abnormal . JAMAL (test code = JAMAL) The [facility] patient population mean normal value for aPTT is 30 seconds. Lab Interpretation Normal (test code = 69544-8) [facility] / [id number] 06:05:04 Test Item Value Reference Range Interpretation [...] tions. Lab Interpretation (test Normal code = 22691-3) [facility] (15304)2022-05-29 02:48:30 Test Item Value Reference Range Interpretation Comments NA (test code = 140 mmol/L 135-145 1156745538) K (test code = 4.4 mmol/L 3.5-5.0 2897053974) CL (test code = 103 mmol/L 98-108 5794272804) CO2 TOTAL (test code = 24 mmol/L 23-31 1202616655) AGAP (test code = 2-16 2552040191) BUN (test code = 13 mg/dL 7-23 6488490109) GLUCOSE (test code = 183 mg/dL 70-110 H 9040383873) CREATININE (test code = 0.74 mg/dL 0.60-1.25 9286904252) TOTAL BILI (test code = 0.5 mg/dL 0.1-1.2 5935147145) CALCIUM (test code = 10.4 mg/dL 8.6-10.6 6232079146) T PROTEIN (test code = 7.8 g/dL 6.3-8.2 6814167234) ALBUMIN (test code = 5.0 g/dL 3.5-5.0 7821444166) ALK PHOS (test code = 140 U/L 34-122 H 1395883606) ALTv (test code = 26 U/L 5-50 1742-6) AST(SGOT) (test code = 26 U/L 13-40 4836306250) eGFR (test code = mL/min/1.73m2 1772047331) JAMAL (test code = JAMAL) Association of [...] tests). Lab Interpretation Abnormal (test code = 79546-6) [facility] WITH [id number] 02:38:32 Test Item Value Reference Range Interpretation [...] (test code = 37.9 fL 38.5-49.0 L 64247-5) RDW-CV (test code = 11.9 % 11.5-14.0 788-0) PLT (test code = See_Comment H [Automated 777-3) message] The system which generated this result transmit rosanne reference range : 133 - 320 10*3/ ?L. The reference range was not u sed to interpret th is result as normal/abnormal . MPV (test code = 8.9 fL 9.3-12.9 L 98498-3) NRBC/100 WBC (test See_Comment [Automat ed code = 4251651566) message] The system which generated this result transmit rosanne reference range : 0.0 - 10.0 /100 WBCs. The reference range was not used to interpret this result as normal/abnormal . NRBC x10^3 (test code See_Comment [Auto mated = 7089219415) message] The system which generated this result transmit rosanne reference range : 10*3/?L. The reference range was not used to interpret this result as normal/abnormal . GRAN MAT (NEUT) % 84.1 % (test code = 770-8) IMM GRAN % (test code 1.50 % = 8096632607) LYMPH % (test code = 13.1 % 736-9) MONO % (test code = 0.8 % 5905-5) EOS % (test code = 0.0 % 713-8) BASO % (test code = 0.5 % 706-2) GRAN MAT x10^3(ANC) 12.92 10*3/uL 1.50-10.30 H (test code = 0910564135) IMM GRAN x10^3 (test 0.23 10*3/uL 0.00-0.06 H code = 1237089287) LYMPH x10^3 (test code 2.02 10*3/uL 0.70-7.40 = 731-0) MONO x10^3 (test code 0.13 10*3/uL 0.00-0.50 = 742-7) EOS x10^3 (test code = 0.00-0.40 711-2) BASO x10^3 (test code 0.07 10*3/uL 0.00-0.10 = 704-7) Lab Interpretation Abnormal (test code = 16619-6) [facility] (EFRNANDA)2022-04-09 12:45:36 Test Item Value Reference Range Interpretation Comments ANTI-NUCLEAR ANTIBODY (FERNANDA) (BEAKER) Negative Negative (test code = 418) Test performed by IFA method.Test performed by IFA method.[id number] 18:24:41 Test Item Value Reference Range Interpretation Comments FERRITIN (BEAKER) (test code = 130.99 ng/mL 5.00-275.00 361) Flume Maker ID - BSHEPATITIS C [id number] 17:56:40 Test Item Value Reference Range Interpretation Comments HEPATITIS C ANTIBODY (BEAKER) Nonreactive Nonreactive (test code = 367) Flume Maker ID - BSHEPATITIS B SURFACE [id number] 17:52:06 Test Item Value Reference Range Interpretation Comments HEPATITIS B SURFACE ANTIBODY < mIU/mL <8.0 (BEAKER) (test code = 647) Flume Maker ID - BSHEPATITIS A ANTIBODY, [id number] 17:52:01 Test Item Value Reference Range Interpretation Comments HEPATITIS A IGG ANTIBODY (BEAKER) Reactive Nonreactive A (test code = 2797) Flume Maker ID - BSHEPATITIS B CORE ANTIBODY, [id number] 17:49:35 Test Item Value Reference Range Interpretation Comments HEPATITIS B CORE TOTAL ANTIBODY Nonreactive Nonreactive (BEAKER) (test code = 497) Flume Maker ID - BSHEPATITIS B SURFACE [id number] 17:49:35 Test Item Value Reference Range Interpretation [...] to interpret this result as normal/abnormal . Flume Maker ID - BSIRON, TIBC, % SAT. (WITHOUT FERRITIN)2022-04-08 17:34:53 Test Item Value Reference Range Interpretation Comments IRON (BEAKER) (test code = 547) 122.0 ug/dL 40.0-160.0 TOTAL IRON BINDING CAPACITY 306 ug/dL 250-450 (BEAKER) (test code = 769) IRON % SATURATION (2) (BEAKER) 40 % 20-55 (test code = 2590) Flume Maker ID - [id number]-3-[id number] 17:30:09 Test Item Value Reference Range Interpretation Comments ALPHA-1 ANTITRYPSIN (BEAKER) 140.80 mg/dL 90.00-200.00 (test code = 502) Flume Maker ID - BSCOMPREHENSIVE METABOLIC [id number] 17:18:27 Test Item Value Reference Range Interpretation [...] eGFR (test code = 1092) mL/min/1.73 values S tage Description sq m Result G1 Gladis l [...] not appl icable for dialysis patien ts Flume Maker ID - BSBILIRUBIN, [id number] 17:18:27 Test Item Value Reference Range Interpretation Comments BILIRUBIN DIRECT (BEAKER) (test 0.3 mg/dL 0.1-0.5 code = 706) Flume Maker ID - BSCBC W/PLT COUNT & AUTO [id number] 16:58:21 Test Item Value Reference Range Interpretation [...] = 2801) Notes Date/Time Note Provider Source 2023-03-18 Formatting of this note might be differe nt from the original. Megan Jim RN [facility] 13:45:40-00:00 Pt was called by this nurse for swabs and discharge. Pt had left facility. No assessment by this nurse. Electronically signed by Megan Jim RN at 0 03/18/2023 1:45 PM CDT 2023-03-18 Formatting of this note might be differe nt from the original. Antoine Waters [facility] 13:27:03-00:00 Body aches ,fever, and cough x 3 days. RN 2023-03-18 Formatting of this note is different from the or iginal. [facility] 13:10:00-00:00 [facility] Emergency Department Note Patient Name: Julisa Arrieta Date of : 2005 17 year old male Treatment Room: Room/bed info not found Primary Care Physician: Karly Shelton Patient Escorted by: Family [5] Mode of Arrival: Personal means [1] EMS Treatment Prior to ED Arrival: Travel and Exposure Screening: Symptoms Does patient have any of these symptoms?: (not r ecorded) Exposure Screening Has patient had contact with someone with a communicable disease in the last month?: (not recorded) Diseases exposed to:: (not recorded) Is Patient ?: (not recorded) Exposure Date: (not recorded) Chief Complaint: Chief Complaint Patient presents with URI History of Present Illness: The patient presents for amie l for cough x 2 days. Also with body aches and sore throat. Subjective fever. Last had motrin around 0500. Does not smoke. H/o asthma. Eating well. No sick contacts. Reports needs a test for school. Here for eval. 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 Unspecified asthma(493.90) 01/18/2007 Mild persistant Unspecified otitis media Unspecified sinusitis (chronic) 10/13/2004 Unspecified viral meningitis 1 week old Allergies: Allergies Allergen Reactions Sulfa (Sulfonamide Antibiotics) Anaphylaxis Informed by parents Albuterol Palpitations Tolerates xopenex better Allergy Type: Food Current Treatment & Notes:Tolerates xopenex bett er Clindamycin Rash and Shortness of Breath Adhesive Rash ECG electrode patches with heart monitor Latex Tyrrell Unknown - See comments Penicillins Pollen Extracts Prednisone Rash Singulair [Montelukast] Other - See comments Aggressive Suprax [Cefixime] Swelling Tape [Adhesive Tape] Unknown - See comments Vancomycin Rash Allergy Type: Medication Current Treatment & Notes: C an have vancomycin, but needs to be run over 2 hours with benadryl. [employer]/redness to face and neck; run over 2 hours Past Social History: Tobacco Use Never smoked or used smokeless tobacco. Past Surgical History: Past Surgical History: Procedure Laterality Date CIRCUMCISION FUNDOPLICATION 11/16/2004 LOOP RECORDER INSERTION METACARPAL ORIF Right 01/18/2023 Surgeon: Hannah Ventura MD; Location: [facility] 2020 STOMACH SURGERY PROCEDURE UNLISTED 10/17/2004 acid reflux TEAR DUCT SYSTEM SURG UNLISTED 12/17/2005 right TONSILLECTOMY WITH ADENOIDECTOMY Review of Systems: Review of Systems Constitutional: Positive for chills and fever. HENT: Negative for ear pain. Respiratory: Positive for cough. Cardiovascular: Negative for chest pain. Gastrointestinal: Negative for abdominal pain an d vomiting. Genitourinary: Negative for dysuria. Musculoskeletal: Positive fo r myalgias. Negative for arthralgias and neck pain. Neurological: Negative for dizziness. Psychiatric/Behavioral: Negative for agitation. Physical Exam: ED Triage Vitals [03/18/23 1300] Weight 83.9 kg (185 lb) Actual or estimated Height 1.727 m (5' 8") BP 133/86 Pulse 95 Resp 16 Temp 37 ?C (98.6 ?F) Temp source Oral SpO2 99 % Measured on Physical Exam Vitals and nursing note reviewed. Constitutional: Appearance: Normal appearance. He is normal kashmir ght. HENT: Head: Normocephalic and atraumatic. Right Ear: Tympanic membrane and ear canal norm al. Left Ear: Ear canal normal. Nose: Nose normal. Mouth/Throat: Mouth: Mucous membranes are moist. Pharynx: Oropharynx is yola r. No oropharyngeal exudate or posterior oropharyngeal erythema. Cardiovascular: Rate and Rhythm: Normal rate and regular rhythm . Pulmonary: Effort: Pulmonary effort is normal. No respirat ory distress. Breath sounds: No wheezing. Abdominal: General: There is no distension. Palpations: Abdomen is soft. Tenderness: There is no abdominal tenderness. Musculoskeletal: General: Normal range of motion. Cervical back: Neck supple. Skin: General: Skin is warm and dry. Neurological: General: No focal deficit present. Mental Status: He is alert. Radiology: No orders to display Lab Results: Lab Results - No data to display EKG: If EKG completed, see Procedure Note. Orders and Treatments: Orders Placed This Encounter Procedures COVID-19 (ID NOW TESTING) RAPID INFLUENZA A/B No orders of the defined types were placed in th is encounter. First Provider Eval: ED Events Date/Time Event User Comments 03/18/23 1312 Medical Screening Begins FAITH WHITE DO -- 03/18/23 1312 First Provider Evaluation FAITH FALL DO -- No notes of EC Admission Criteria type on file. ED COURSE Diagnosis/Impression as of 03/18/23 1335 Viral upper respiratory tract infection Procedures: Procedures MDM: Medical Decision Making The patient presents from [facility] for eval for cough and body aches x 2 days. Had motrin around 0500 today. No sick contacts. H/o asthma. Does not smoke. VSS here in the EC. Lungs clear. Suspect viral syndrome. Will screen for covid and flu. Can f/u with results on mychart. Recommend otc cough/cold meds. Stable here in the EC and is ok for dc home with pcp f/u. Problems Addressed: Viral upper respiratory tract infection: acute i llness or injury Amount and/or Complexity of Data Reviewed Labs: ordered. Decision-making details documente d in ED Course. Risk OTC drugs. Flowsheet Documentation: Scoring Tools: No data recorded Disposition/Condition: ED Disposition ED Disposition Disch - Home Condition Stable Comment -- Discharge Medications: Patient's Medications START taking these medications No medications on file CONTINUE taking these medications which have NOT CHANGED ARIPIPRAZOLE (ABILIFY MAINT VICKY) 300 MG SERS by Intramuscular route once every month. ATOGEPANT (QULIPTA) 60 MG TAB Take 1 tablet by mouth daily. AZITHROMYCIN 200 MG/5 ML SUSPENSION Take 6.5 m L by mouth in the morning. UYTONDOVOG-EFCBKAWY-NYCRHIH ROL (BREZTRI AEROSPHERE) 160-9-4.8 MCG/ACTUATION HFAA Inhale 2 Puffs in the morning and 2 Puffs in the evening. BUSPIRONE 15 MG TABLET Take 1 tablet by mouth 2 (two) times daily. CARIPRAZINE (VRAYLAR) 3 MG CAP Take 1 capsule by mouth in the morning and 1 capsule in the evening. CETIRIZINE 5 MG TABLET Take 1 tablet by mouth d aily. DIAZEPAM 2 MG TABLET Take 1 tablet by mouth in the morning and 1 tablet in the evening. EPINEPHRINE 0.3 MG/0.3 ML INJECTION 0.3 mL by I ntramuscular route as needed. HYDROCORTISONE 2.5 % CREAM Apply 1 Applicator t o area(s) as needed. IPRATROPIUM 0.02 % NEBULIZE R SOLUTION Inhale 2.5 mL every 6 (six) hours as needed for Wheezing or Shortness of Breath. LEVALBUTEROL (XOPENEX HFA) 45 MCG/ACTUATION INHALER Inhale 2 Puffs every 6 (six) hours as needed for Wheezing. INHALE 2 PUFFS BY MOUTH EVERY 6 HOURS NEEDED BEFORE EXERCISE OR FOR WHEEZING/SHORTNESS OF BREATH. LEVETIRACETAM (KEPPRA) 100 MG/ML ORAL SOLUTION Take 10 mL by mouth in the morning and 10 mL in the evening. LISDEXAMFETAMINE 40 MG CAPSULE Take 1 capsule by mouth every morning. METHOCARBAMOL 750 MG TABLET TAKE 1 TABLET BY MO UTH EVERY DAY NEEDED METOPROLOL SUCCINATE XL 25 MG 24 HR TABLET Take 1 tablet by mouth in the morning. MIDAZOLAM (NAYZILAM) 5 MG/S PRAY (0.1 ML) JOHNSONY Use 1 Landis in 1 nostril SEE- INSTRUCTIONS. 1 spray in ONE nostril for seizure lasting more than 3 minutes or for seizure cluster; may repeat dose in 10 min utes in other nostril if nee ded (do not repeat if the patient is having trouble breathing or excessive sedation). Do not exceed 2 sprays for single episode. Do not use for more than one episode in a 3-day span or more than 5 episodes in a month. MULTIVITAMIN ORAL TAB one daily NYSTATIN 100,000 UNIT/GRAM CREAM Apply 1 Dose t o area(s) in the morning. NYSTOP 100,000 UNIT/GRAM POWDER Apply 1 Dose to area(s) in the morning. OMEPRAZOLE 20 MG CAPSULE Ta ke 1 capsule by mouth in the morning and 1 capsule in the evening. RISPERIDONE 0.5 MG TABLET T сергей 1 tablet by mouth in the morning and 1 tablet in the evening. SUMATRIPTAN 100 MG TABLET T сергей 1 tablet by mouth as needed for Migraine for up to 9 doses. sumatriptan 100 mg, 1 tablet as needed for headache immediately at the onset of headache with big glass of brendan er. May take another dose in 120 minutes after the first tablet if the headache does not reduce in intensity. Patient advised to take only 2 tablets in 24 hours and not more than 3 days in a week. SUMATRIPTAN 5 MG/ACTUATION NASAL SPRAY Use 1 Landis in each nostril as needed for headache symptoms. May repeat in 2 hours if needed. Max of 4 sprays per 24 hours TRIAMCINOLONE 0.1% IN AQUAP HOR (COMPOUNDED) OINTMENT Apply to affected area(s). TRIAMCINOLONE ACETONIDE 0.1 % CREAM Apply 1 Leann licator to area(s) as needed. START taking Modified Medications as Prescribed No medications on file STOP taking these medications No medications on file Follow-up: Electronically signed by: Faith White DO 03/18/23 1336 T 2023-03-18 [employer] [employer] 10:14:28-00:00 Patient's PA was approved PA approval faxed to [facility] Electronically signed by Leigh Brower RN at 10:15 AM T 2023-03-17 [employer] [employer] 10:40:29-00:00 PA submitted on [email or web address] Julisa Arrieta ([place]: [id number]) Status Sent to [employer] The plan will fax you a determination, typically within 1 to 5 business days. Drug Aruni Mist.iophere 160-9-4.8MCG/ACT aerosol Form [employer] Morales as Medicaid Standard Prior Authorization Request Form Prior Authorization Form for Prescription Drugs for [employer] [place] Medicaid Members phone fax Electronically signed by Leigh Brower RN at 10:41 AM CDT 2023-03-17 Formatting of this note might be differe nt from the original. Bernice Aguilera [facility] 08:09:34-00:00 Images from the original note were not included. Electronically signed by Bernice Aguilera at 023 8:09 AM CDT 2023-03-16 [facility] 08:37:12-00:00 Images from the original note were not included[facility] 160-9-4.8MCG/ACT Aerosol pres cription Mcc[place]ough: [id number] Electronically signed by Bernice Aguilera at 023 8:38 AM T 2023-03-11 [facility] 09:40:52-00:00 This issue has been resolved. Closing encounter. T 2023-03-11 Formatting of this note might be differe nt from the original. Jing Tripathi [facility] 08:52:11-00:00 Julisa Arrieta is a 17 year old male. Has this been resolved? Electronically signed by Jing Tripathi at 2022 8:52 AM T 2023-03-09 Formatting of this note might be differe nt from the original. Rafaela Jhaveri RN [facility] 20:55:02-00:00 Pt given printed and verbal discharge instructions regarding chest pain, tachycardia, leukocytosis, encouraged hydration, 1 Prescriptions sent. Discussed ibuprofen and to take with food to daina id GI distress. Pt verbalized understanding of instructions, pt awake alert oriented, resp reg unlabored, skin w/d, color appropriate for race, moves all ext well,pt encouraged to follow up with pcp. Advised to seek medical attention for new/prolon ged/worsening of symptoms, Symptoms improved. No adverse reaction to meds given in ER noted up on discharge PIV d'cd, dressing to site, catheter in tact. Awake, alert oriented, resp reg unlabored, skin w/d, pt leaving amb with steady gait, in no apparent distress, Electronically signed by Rafaela Jhaveri RN a t 03/09/2023 8:56 PM CDT 2023-03-09 Formatting of this note might be differe nt from the original. Antoine Waters [facility] 16:53:24-00:00 Patient to ED for left sided chest pain that started at 1450. Went to school nurse and they told him to go to the ED. RN 2023-03-09 Formatting of this note might be differe nt from the original. Radha Olea LVN [facility] 16:13:57-00:00 Returned call and spoke agapito ents mother. States his heart rate was in the 160's and he could not be sent home on the bus from school. She reached someone from Dr. Edwards office and advised to go to ED. They are in route to [facility]. 2023-03-09 Formatting of this note might be differe nt from the original. Paula Cruz [facility] 15:44:13-00:00 Mom stated that her son has been experiencing heart rate fluctuations today at school where its in normal range in the 90's and then escalates to 150. He is feeling fatigue. Mom is concerned on what the y are needing to do or if he is needing to be se en. Please advise. Electronically signed by Paula Cruz at 0 03/09/2023 3:48 PM CDT 2023-03-08 [facility] 09:48:27-00:00 Unsure if insurance will pay for two pumps at a time. Will attempt to see if will pay for 3mo supply at a time refills. Dr. Michael out of office. Will ask him for this at his return. In mean time advised parent to hold off as tolera ble since almost end of month and able to submit need for refill next week. Pleased verbally understood. Electronically signed by Michele Simons MA a t 03/09/2023 2:26 PM CDT 2023-03-08 Formatting of this note might be differe nt from the original. Rachel Hunt MA [facility] 08:50:32-00:00 Routing to provider for approval or denial Electronically signed by Rachel Hunt MA a t 03/08/2023 8:52 AM CDT 2023-03-05 Formatting of this note might be differe nt from the original. Rosemary Siddiqi [facility] 16:32:01-00:00 Julisa Arrieta is a 17 year old male Candy Mom calling states luis t the RX for levalbuterol (XOPENEX HFA) 45 mcg/actuation inhaler should have been called in for 2. He is needing one for school and one for home. Please call to advise, thanks. Electronically signed by Rosemary Siddiqi at 0 03/05/2023 4:33 PM CDT 2023-03-03 Formatting of this note might be differe nt from the original. Tico Garduno RN [facility] 19:59:51-00:00 Pt and guardians given print [...] steady gait, in no apparent distress. 2023-03-03 [facility] 13:47:39-00:00 Patient currently at ER. States that patient has been having pain at ILR insertion site, which was placed 02/23/23. While he was at school today eating his lunch, he became lightheaded so they too him to ER. Routing as FYI to Dr. Maurice. Electronically signed by Leigh Brower RN at 1:49 PM CDT 2023-03-03 Formatting of this note might be differe nt from the original. Katiana Oliva RN [facility] 13:39:25-00:00 CC: patient presents to the ER with complaints of chest wall pain at the insertion site of his new loop recorder and lightheadedness that began today around 1100. 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 PMHx: see history Awake, alert, oriented, resp reg unlabored, skin warm and dry, color appropriate for race, moves all ext without difficulty, using wheelchair. Appears in no distress. 2023-03-03 Formatting of this note might be differe nt from the original. Oli Andres [facility] 11:51:55-00:00 Julisa Arrieta is a 17 year old male Mom is calling regarding pts heart concerns and wants to speak to nurse thierry Please advise [phone] (home) Electronically signed by Oli Andres at 02/16 11:53 AM CDT 2023-03-03 Formatting of this note might be differe nt from the original. Dhara Lerner RN [facility] 10:11:53-00:00 Forms have been received and placed in providers folder for review. Will send back when signed. Closing encounter. 2023-03-03 Formatting of this note might be differe nt from the original. Paula Cruz [facility] 09:47:42-00:00 Patient mom called stating s he is needing a school note for the nurse regarding her sons monitor he has on nurse is very concerned and needs documentation on if she is needing to check it every so often through out the day. Please e-mail the rex augustine at [email or web address] Please advise, thank you. Electronically signed by Paula Cruz at 0 03/03/2023 9:50 AM T 2023-03-03 Formatting of this note might be differe nt from the original. Rachel Marrero [facility] 09:36:10-00:00 Patient mother calling statiliana ng the patient has returned back to public school and the school nurse is needing a seizure action plan form sent to her by E- mail. Please advise [facility] Nurse: Shelby Rosario E-mail: [email or web address] Electronically signed by Rachel Marrero at 02/16 9:38 AM CDT 2023-02-23 Formatting of this note might be differe nt from the original. Eugenia Mojica RN [facility] 11:01:45-00:00 AVS given and gone over with pt and family, all questions answered. Lt chest dressing C/D/I. IV removed, dressing C/D/I. Pt and mom ambulated to lobby on foot. No distress noted. [place] [facility] 2023-02-23 [facility] 07:41:46-00:00 Please assist with getting P A for the sumatriptan spray. Epic will no allow us to put in 2 boxes. Medication comes in 4 to a box. T 2023-02-22 Formatting of this note might be differe nt from the original. Rosemary Siddiqi [facility] 11:53:44-00:00 Julisa Arrieta is a 17 year old male Mom Candy calling back because she spoke with the pharm and they're telling her that it has to be called in as "2 boxes", not 8 qty and that it will require PA. Pls give her a call with any questions. Thanks. Electronically signed by Rosemary Siddiqi at 0 02/22/2023 11:54 AM T 2023-02-22 Formatting of this note might be differe nt from the original. Dhara Lerner RN [facility] 11:22:05-00:00 Pt.S family notified, and ab le to verbalized understanding of directions and use of the nasel sumatriptan. Pt's mother stated that he never got the sumatriptan oral, according to pt's mother, the pharmacist only gave them one. Closing encounter. 2023-02-22 [facility] 10:36:41-00:00 Done. Please instruct them n ot to use sumatriptan (which includes the nasal spray and the pills) for more than 10 days in a month. Thanks. Electronically signed by Jose Christopher MD at 10:37 AM T 2023-02-22 [facility] 10:16:10-00:00 please review and a dvise. mother is requesting a prescription for Imitrex nasal spray. Please advise, thank you. T 2023-02-22 Formatting of this note might be differe nt from the original. Steve Cooper RN [facility] 09:04:34-00:00 Patient to arrive at new time of 0730 Electronically signed by Steve Cooper RN at 0 02/22/2023 9:05 AM CDT 2023-02-22 Formatting of this note might be differe nt from the original. Rsoemary Siddiqi [facility] 08:45:16-00:00 Julisa Arrieta is a 17 year old male Mom Candy calling to see about getting RX for imitrex nasal spray. She is requesting 2 boxes. He is about to start school. Please give her a call with any questions. [id number] - [place], [place] - [address] [place] [address] Electronically signed by Rosemary Siddiqi at 0 02/22/2023 8:47 AM CDT 2023-02-18 Formatting of this note might be differe nt from the original. Sarbjit Coyle RN [facility] 10:54:02-00:00 Pt's mother called to let us know that cardio clearance cannot be given yet until further diagnostics are completed as per rubber engraver T 2023-02-18 [facility] 10:06:58-00:00 Medical Records requested fr [facility]. For Dr. Priest, Dr. Michael, Dr. Bosch faxed to [facility]. Follow up with them for status updates. Electronically signed by Michele Simons MA a t 02/18/2023 10:08 AM T 2023-02-18 Formatting of this note might be differe nt from the original. Sarbjit Coyle RN [facility] 09:06:46-00:00 Pt's mother returned call an d stated she would put a call into rubber engraver to see if clearance can be given. T 2023-02-18 Formatting of this note might be differe nt from the original. Sarbjit Coyle RN [facility] 08:57:44-00:00 I called pt to ask where we are on getting cardio clearance so pt can get EGD. Pt has cardio appt on 02/23/23. No answer, I left VM with my call back number. T 2023-02-17 [facility] 11:18:31-00:00 [facility] EP LAB PRE-CALL INSTRUCTIONS EP Instructions were [...] [facility] via [address] from either [address] or [address]. Bring your parking ticket with you to be validated, only one parking ticket may be validated per patient. There may be a possibility o f hospital admission or late evening discharge; therefore, bring leisure reading and an overnight bag. On the day of your procedure , come directly to the Electrophysiology Lab authors motivational desk, located on the 6th floor of [facility] ([id number]- [phone].) You will be escorted to the Cardiac [...] differe nt from the original. Christen Siddiqi [facility] 09:41:44-00:00 Spoke to Martita with [facility], medication is to be sent to patient. Verbal understanding. 2023-02-09 Formatting of this note might be differe nt from the original. Rosemary Siddiqi [facility] 16:45:59-00:00 Julisa Arrieta is a 17 year old male Anabela calling w/ [facility] needing to know where to dispense the medication nucala 100mg: to the patient or to the office? Please call to confirm. Electronically signed by Rosemary Siddiqi at 0 02/09/2023 4:47 PM CDT
[2023-03-18 14:40] LABS: SARS-CoV-2 Antigen Rapid Res Negative (Negative)
--- NOTE | 2023-03-18 14:58 | ER ---
Nurse's Notes [facility] Name: Manjinder Arrieta Age: 17 yrs Sex: Male : 2005 Arrival Date: 03/18/2023 Time: 13:57 Bed Treatment Private MD: Diagnosis: Acute upper respiratory infection, unspecified Presentation: 03/18 14:00 Chief complaint: Parent and/or Guardian states: the patient was sent home from school ap3 for body aches, fever, chills and headache. mother reports the symptoms began yesterday 03/17/23. Coronavirus screen: Client presents with at least one sign or symptom that may indicate coronavirus-19. Ebola Screen: No symptoms or risks identified at this time. Initial Sepsis Screen: Does the patient meet any 2 criteria? HR > 90 bpm. No. Patient's initial sepsis screen is negative. Does the patient have a suspected source of infection? No. Patient's initial sepsis screen is negative. Risk Assessment: Do you want to hurt yourself or someone else? Patient reports no desire to harm self or others. Onset of symptoms was March 17, 2023. 14:00 Method Of Arrival: Ambulatory ap3 14:00 Acuity: YESSY 4 ap3 Triage Assessment: 14:03 General: Appears in no apparent distress. Behavior is calm, cooperative, appropriate ap3 for age. General: Reports fever for feeling ill for fatigue for. Pain: Complains of pain in generalized body aches. Neuro: Level of Consciousness is awake, alert, obeys commands, Oriented to person, place, time, situation. Cardiovascular: Patient's skin is warm and dry. Respiratory: Airway is patent Respiratory effort is even, unlabored, Respiratory pattern is regular, symmetrical. Historical: - Allergies: 14:02 adhesive tape; ap3 14:02 Adhesives; ap3 14:02 Albuterol; ap3 14:02 cefixime; ap3 14:02 Clindamycin; ap3 14:02 Latex, Natural Rubber; ap3 14:02 montelukast; ap3 14:02 [place] (Prunus Persica); ap3 14:02 PENICILLINS; ap3 14:02 Prednisone; ap3 14:02 Sulfa (Sulfonamide Antibiotics); ap3 14:02 Suprax; ap3 14:02 Vancomycin; ap3 - PMHx: 14:02 ADD/ADHD; Anemia; Anxiety; Asthma; Autism; bacterial meningitis; Bipolar disorder; ap3 Depression; epillepsy; hepatosplegomegaly; Migraines; - PSHx: 14:02 Adenoid excision; ear tubes; eye surgery; fundiplication; Splenectomy; tear duct ap3 surgeries; Tonsillectomy; - Social history:: Smoking status: Patient denies any tobacco usage or history of. - Family history:: not pertinent. - Hospitalizations: : No recent hospitalization is reported. Screenin:03 [facility] ED Fall Risk Assessment (Adult) History of falling in the last 3 months, ap3 including since admission No falls in past 3 months (0 pts). Abuse screen: Denies threats or abuse. Nutritional screening: No deficits noted. Tuberculosis screening: No symptoms or risk factors identified. Assessment: 14:18 General: Appears in no apparent distress. Behavior is cooperative, appropriate for age. mb9 Pain: Complains of pain in throat. Neuro: [place] Agitation-Sedation Scale (RASS): 0 - Alert and Calm Level of Consciousness is awake, alert, obeys commands, Oriented to person, place, time, situation, Appropriate for age. Cardiovascular: Patient's skin is warm and dry. Respiratory: Reports cough that is Airway is patent Respiratory effort is even, unlabored, Respiratory pattern is regular, symmetrical. GI: Abdomen is round non-distended, Bowel sounds present X 4 quads. Abd is soft and non tender X 4 quads. : No signs and/or symptoms were reported regarding the genitourinary system. EENT: Throat is reddened Reports nasal congestion. Derm: Skin is pink, warm \T\ dry. Musculoskeletal: Range of motion: intact in all extremities. 15:03 Reassessment: No changes from previously documented assessment. Patient and/or family mb9 updated on plan of care and expected duration. Pain level reassessed. Patient is alert, oriented x 3, equal unlabored respirations, skin warm/dry/pink. Vital Signs: 14:00 BP 137 / 92; Pulse 95; Resp 18; Temp 98.7; Pulse Ox 98% ; ap3 15:03 BP 131 / 78; Pulse 94; Resp 18; Pulse Ox 100% on R/A; mb9 ED Course: 13:58 Patient arrived in ED. rg4 13:59 Rayo Goodwin MD is Attending Physician. rn 14:02 Triage completed. ap3 14:04 Lupe Perez, RN is Primary Nurse. mb9 14:04 Arm band placed on right wrist. ap3 14:04 Bed in low position. Call light in reach. Side rails up X 1. Client placed on mb9 continuous cardiac and pulse oximetry monitoring. NIBP monitoring applied. 14:04 No provider procedures requiring assistance completed. Patient did not have IV access mb9 during this emergency room visit. 14:18 Strep Sent. mb9 14:18 SARS RAPID Sent. mb9 14:18 Flu Sent. mb9 Administered Medications: No medications were administered Medication: 14:04 VIS not applicable for this client. ap3 Outcome: 14:57 Discharge ordered by . rn 15:03 Discharged to home ambulatory, with family. mb9 15:03 Condition: stable 15:03 Discharge instructions given to patient, family, Instructed on discharge instructions, follow up and referral plans. Demonstrated understanding of instructions, follow-up care, medications, Prescriptions given X 1. 15:03 Patient left the ED. mb9 Signatures: Rayo Goodwin MD MD rn Garcia, Rubi rg4 Shelby De Paz RN RN ap3 Lupe Perez, RN RN mb9
--- NOTE | 2023-03-18 14:58 | EDPHYS ---
Physician Documentation [facility] Name: Manjinder Arrieta Age: 17 yrs Sex: Male : 2005 Arrival Date: 03/18/2023 Time: 13:57 Bed Treatment Private MD: ED Physician Rayo Goodwin HPI: 03/18 14:07 This 17 yrs old Male presents to ER via Ambulatory with complaints of Flu Symptoms. rn 14:07 The patient or guardian reports flu symptoms. rn 14:07 Onset: The symptoms/episode began/occurred yesterday. Severity of symptoms: At their rn worst the symptoms were mild, in the emergency department the symptoms are unchanged. Modifying factors: The symptoms are alleviated by nothing, the symptoms are aggravated by nothing. The patient has experienced similar episodes in the past. Patient and parents report flulike illness that began yesterday with cough, congestion, sore throat. Just came from [facility] upset because they were told there is nothing that could be done. No testing obtained there. Patient requested to leave and come here. Was on antibiotics 2 weeks ago for strep throat. Denies shortness of breath or chest pain.. Historical: - Allergies: 14:02 adhesive tape; ap3 14:02 Adhesives; ap3 14:02 Albuterol; ap3 14:02 cefixime; ap3 14:02 Clindamycin; ap3 14:02 Latex, Natural Rubber; ap3 14:02 montelukast; ap3 14:02 [place] (Prunus Persica); ap3 14:02 PENICILLINS; ap3 14:02 Prednisone; ap3 14:02 Sulfa (Sulfonamide Antibiotics); ap3 14:02 Suprax; ap3 14:02 Vancomycin; ap3 - PMHx: 14:02 ADD/ADHD; Anemia; Anxiety; Asthma; Autism; bacterial meningitis; Bipolar disorder; ap3 Depression; epillepsy; hepatosplegomegaly; Migraines; - PSHx: 14:02 Adenoid excision; ear tubes; eye surgery; fundiplication; Splenectomy; tear duct ap3 surgeries; Tonsillectomy; - Social history:: Smoking status: Patient denies any tobacco usage or history of. - Family history:: not pertinent. - Hospitalizations: : No recent hospitalization is reported. ROS: 14:07 Constitutional: Positive for subjective fever Eyes: Negative for injury, pain, redness, rn and discharge, ENT: Positive for congestion and sore throat Neck: Negative for injury, pain, and swelling, Cardiovascular: Negative for chest pain, palpitations, and edema, Respiratory: Positive for cough, negative for shortness of breath or hemoptysis Abdomen/GI: Negative for abdominal pain, nausea, vomiting, diarrhea, and constipation, MS/Extremity: Negative for injury and deformity, Skin: Negative for injury, rash, and discoloration, Neuro: Negative for headache, weakness, numbness, tingling, and seizure. Exam: 14:07 Constitutional: This is a well developed, well nourished patient who is awake, alert, rn and in no acute distress. Head/Face: Normocephalic, atraumatic. ENT: Mild pharyngeal erythema without exudate, uvula midline, no stridor, moist mucous membranes Neck: Nontender cervical lymphadenopathy. No Meningismus. Cardiovascular: Regular rate and rhythm. No pulse deficits. Respiratory: No increased work of breathing, no retractions or nasal flaring. Abdomen/GI: Soft, non-tender Skin: Warm, dry MS/ Extremity: Pulses equal, no cyanosis. Neuro: Awake and alert, GCS 15 Vital Signs: 14:00 BP 137 / 92; Pulse 95; Resp 18; Temp 98.7; Pulse Ox 98% ; ap3 15:03 BP 131 / 78; Pulse 94; Resp 18; Pulse Ox 100% on R/A; mb9 MDM: 13:59 Patient medically screened. rn 14:51 Differential Diagnosis: Influenza Upper Respiratory Infection Sinusitis Pharyngitis rn Viral Syndrome. Data reviewed: vital signs, nurses notes. 14:57 Counseling: I had a detailed discussion with the patient and/or guardian regarding the rn historical points, exam findings, and any diagnostic results supporting the discharge/admit diagnosis, lab results, the need for outpatient follow up, to return to the emergency department if symptoms worsen or persist or if there are any questions or concerns that arise at home. Special discussion: I discussed with the patient/guardian in detail that at this point there is no indication for admission to the hospital. It is understood, however, that if the symptoms persist or worsen the patient needs to return immediately for re-evaluation. 03/18 13:59 Order name: Flu; Complete Time: 14:50 rn 03/18 13:59 Order name: SARS RAPID; Complete Time: 14:50 rn 03/18 13:59 Order name: Strep rn 03/18 14:52 Order name: Throat Culture EDMS Administered Medications: No medications were administered Disposition Summary: 03/18/23 14:57 Discharge Ordered Location: Home rn Problem: new rn Symptoms: are unchanged rn Condition: Stable rn Diagnosis - Acute upper respiratory infection, unspecified rn Followup: rn - With: Private Physician - When: As needed - Reason: Recheck today's complaints, Re-evaluation by your physician Discharge Instructions: - Discharge Summary Sheet rn - Upper Respiratory Infection, Adult rn Forms: - Medication Reconciliation Form rn - Thank You Letter rn - Antibiotic pattern duplicator - Prescription Opioid Use rn - Patient Portal Instructions rn - Leadership Thank You Letter rn Prescriptions: - Zithromax 200 mg/5 mL Oral Suspension for Reconstitution - take 12.5 milliliter by ORAL route daily for 5 days; 75 milliliter; Refills: 0, rn Product Selection Permitted Signatures: Dispatcher [employer] Rayo Swift MD MD rn Prokisch, Amanda, RN RN ap3
[2023-03-18 15:57] VITALS: TEMP 98.7
[2023-03-18 15:58] VITALS: BP 131/78; O2SAT 100
== END 2023-03-18 15:03 | disposition home or self-care (01) ==
LOC: ER 13:57
DX: J06.9 Acute upper respiratory infection, unspecified (principal); Z20.822 Contact with and (suspected) exposure to COVID-19; Z88.1 Allergy status to other antibiotic agents; Z88.2 Allergy status to sulfonamides; Z88.3 Allergy status to other anti-infective agents; Z88.8 Allergy status to other drugs, medicaments and biological substances; Z91.018 Allergy to other foods; Z91.040 Latex allergy status; Z91.048 Other nonmedicinal substance allergy status
CPT/HCPCS: 36415; 87070; 87081; 87804; 87811; 99283

== ENCOUNTER 2023-03-21 18:17 | Emergency (ER) | payer OTHER ==
--- OUTSIDE RECORDS SUMMARY | 2023-03-21 19:16 | XMS REPORT | Continuity of Care Document ---
:2005 Author Organization [facility] t Address [address] [facility]. [address] [place] [address] Care Team Providers Name Role Phone NARGIS LAKE Primary Care Physician Unavailable PARTH MAURICE Attending Clinician Unavailable PARTH MAURICE Attending Clinician Unavailable YANCI MICHAEL Attending Clinician Unavailable YANCI MICHAEL Attending Clinician Unavailable JOSE CHRISTOPHER Attending Clinician Unavailable ADELINE BOURGEOIS Attending Clinician Unavailable ADELINE BOURGEOIS Attending Clinician Unavailable FAITH WHITE Attending Clinician Unavailable Faith White DO Attending Clinician Yanci Michael DO Attending Clinician Colleen VARMA Attending Clinician Unavailable Colleen Maddox Attending Clinician Yamil Gandara MD Attending Clinician MALHOTRA, BARRIE S Attending Clinician Unavailable Doctor Unassigned, [place] Attending Clinician Unavailable MIL ELKINS Attending Clinician Unavailable Severo CONSTRUCTION HELPER, Mil Attending Clinician Jose Christopher MD S Attending Clinician Roscoe NATION, Barrie S Attending Clinician Jakob Mcfarland DO Attending Clinician Cem ADEN, Christiano Attending Clinician ARSALAN GRANT Attending Clinician Unavailable Arsalan Grant MD Attending Clinician SACHIN CARVAJAL Attending Clinician Unavailable Sachin Vital Attending Clinician HANNAH VENTURA Attending Clinician Unavailable Hannah Ventura MD Attending Clinician Po, [facility] Main Attending Clinician Unavailable Sarbjit Kee MD Attending Clinician SURY DSOUZA Attending Clinician Unavailable [place] NATION, Sury S Attending Clinician CHRISTIANO PRIEST Attending Clinician Unavailable TYRON NUÑEZ Attending Clinician Unavailable Tyron Nuñez DO Attending Clinician Pankaj Garrett MD Attending Clinician PANKAJ GARRETT Attending Clinician Unavailable ANJALI WISDOM Attending Clinician Unavailable Anjali Wisdom PA-C Attending Clinician Wendy Anand Attending Clinician 1, [facility] Audio Sound Suite Attending Clinician Unavailable Angel Mar, Fadumo Orozco Attending Clinician Nano Cook PT Attending Clinician Unavailable Beena Ramirez MD Attending Clinician BEENA RAMIREZ Attending Clinician Unavailable [facility] Attending Clinician Unavailable Parrish Rosenberg MD Attending Clinician Sheng Vasquez MD Attending Clinician SHENG VASQUEZ Attending Clinician Unavailable MG FRYE Attending Clinician Unavailable MG FRYE Attending Clinician Unavailable Marry Woods RN Attending Clinician Unavailable PITA MALHOTRA Attending Clinician Unavailable Pita Malhotra MD Attending Clinician Jose Carlos Barth RN Attending Clinician Unavailable RUBEN BELCHER Attending Clinician Unavailable Ruben Mcknight Attending Clinician HANK OSHEA Attending Clinician Unavailable SHELBY SANTIAGO Attending Clinician Unavailable YAMIL GANDARA Attending Clinician Unavailable Estefania VIRAMONTES MD, Steve Quinn Attending Clinician [phone] ROBERT GLORIA Attending Clinician Unavailable Robert Gloria MD Attending Clinician JUNIOR LEAHY Attending Clinician Unavailable MEGHAN ROSARIO Attending Clinician Unavailable Meghan Rosario MD Attending Clinician Junior Leahy MD Attending Clinician Felix Morelos MD Attending Clinician [phone] Zana Thompson MD Attending Clinician Nurse, Namrata Moyer Attending Clinician Unavailable NEGIN RUST Attending Clinician Unavailable BOB OSMAN Attending Clinician Unavailable ULYSSES CASTRO Attending Clinician Unavailable PARTH MAURICE Admitting Clinician Unavailable Colleen VARMA Admitting Clinician Unavailable MIL ELKINS Admitting Clinician Unavailable ARSALAN GRANT Admitting Clinician Unavailable HANNAH VENTURA Admitting Clinician Unavailable Hannah Ventura MD Admitting Clinician [facility] Admitting Clinician Unavailable JOSE CHRISTOPHER Admitting Clinician Unavailable TYRON NUÑEZ Admitting Clinician Unavailable CHRISTIANO PRIEST Admitting Clinician Unavailable MG FRYE Admitting Clinician Unavailable PITA MALHOTRA Admitting Clinician Unavailable RUBEN BELCHER Admitting Clinician Unavailable ROBERT GLORIA Admitting Clinician Unavailable MEGHAN ROSARIO Admitting Clinician Unavailable Payers Payer Name Policy Type Policy Number Effective Date Expiration Date S konstantin LATHA [employer] [place] [id number] 2022 KIDS 00:00:00 [facility] SHELLEY BECK [id number] 2022 00:00:00 Problems Condition Condition Condition Status Onset Resolution Last Treating Co mments Source Name Details Category Date Date Treatment Clinician Date Palpitatio Palpitatio Disease Active U nivers ns ns 7-13 ity of 00:: [place] [address] Medical Geraldine Syncope Syncope Disease Active Univers and and 7-13 ity of collapse collapse 00:: [place] [facility] Branch Abnormal Abnormal Disease Active Last [facility] liver liver 04-10 [facility] enzymes enzymes 00:00: t & Plan: Medic al [address] [place] [address] g of this note might be different [...] [facility]ukes 25.0-29.9) 25.0-29.9) 00:00: t & Plan: [address] g of this note might be different from the original. Body mass index is 27.49 kg/m2. We discussed the importanc e of weight loss with a low carbohydr ate, high protein diet. Immunity Immunity Disease Active Last [facility] status status 04-10 [facility] testing testing 00:00: t & Plan: Medic al [address] [place] [address] g of this note might be different [...] c rhinitis 0-15 it y of 00:00: [place] [address] Medical Branch History of History of Disease Active U nivers itching of itching of 2-20 it y of eye eye 00:: [place] [facility] Branch History of History of Disease Active U nivers itching of itching of 2-20 it y of eye eye 00:: [place] 00 Medical Branch DMDD DMDD Disease Active Univers (disruptiv (disruptiv 9-16 it y of e mood e mood 00:00: [place] dysregulat dysregulat 00 Me dical ion ion Branch disorder) disorder) 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 From - Adderall XR tp 40mg once daily in [...] 0.5mg BID Trazodone increased to 12mL for -9 0-13 Hold Adderall XR40 (not working and [...] Qd D/C Abilify (unexplai brenda mouth movements )9--14 Restart abilify 2mg (voices returned) Restart trazodone [...] BID. Begin Probiotic s 1-2 times per day8- 5 Decrease Trazadone to 100 mg qHS [...] issues resolve with above, do not start Isncxy36- 12-15 Hold zoloft; stop Buspar: possible tachycard [id number] 5 Restart Buspar 7.5 BID (Heart rate no better off it and anxiety worse) Trial reduction Risperida l to 1/2 of .25mg BID Trial Remeron 15mg HS Trial remeron 15mg [id number] 5 Raise Risperdal back to .25mg BID [...] Remeron 15mg Continue Lexapro 30mg Continue Kapvay [id number] Increase zoloft to 50mg after school Decrease lexapro to 20mg 016 Stop Lexapro 20 mg Increase Abilify to 10 mg daily Increase Buspar to 15 mg BID Increase Kapvay to 0.1-0.2 mg QHS 02/12/16 Start amantidin e 100mg BID Stop abilify 10mg04/29 Move Risperdal 0.25 mg dose up to give at [id number] 06-24-16 Increase Risperdas l to .5mg BID 7 Increase Amantadin e to 15ml BID (not done last time) Increase Risperdal to .75 BID Reduce abilify to [id number] Amantidin e 150mg BID Increase Zoloft to [...] DISORDER 4-18 ity of DEVELOPMEN DEVELOPMEN 00:00: Anival haskinss KENDRA KENDRA 00 Medical Branch Hallucinat Hallucinat [...] different from the original. 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 ICD10 Diagnosis Term Counter Pocket Trimmer Utility Pain in Pain in Disease Active Univers joint, joint, 10-22 ity of lower leg [place] leg 00:[place] Pain in Pain in Disease Active Univers joint, joint, 10-22 ity of lower leg lower leg 00:00: [...] Disease Active Overview: Univbritney s problems problems - Formattin ity of related to related to 00:00: g of this [place] lifestyle lifestyle 00 note Medi cherie might be Branch different from the original. 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 ICD10 Diagnosis Term Counter Pocket Trimmer Utility Asthma Asthma Disease Active Overview: Univer s 01-18 Formattin ity of 00:00: g of this [place] 00 note Medical might be Branch different from the original. Mild persistan tICD10 Diagnosis Term Counter Pocket Trimmer Utility Allergic Allergic Disease Active Overview: Un glen rhinitis rhinitis 01-18 Formattin ity of 00:00: g of this [place] 00 note Medical might be Branch different from the original. ICD10 Diagnosis Term Counter Pocket Trimmer Utility Sleep Sleep Disease Active Overview: Univer s apnea apnea 3- Formattin ity of 00:00: g of this [place] 00 note Medical might be Branch different from the original. ICD10 Diagnosis Term Counter Pocket Trimmer Utility Sinusitis, Sinusitis, Disease Active Overview : Univers chronic chronic 3-28 Formattin ity o f 00:00: g of this note Medical might be Branch different from the original. ICD10 Diagnosis Term Counter Pocket Trimmer Utility Allergies, Adverse Reactions, Alerts Allergy Allergy Status Severity Reaction(s) Onset Inactive Treating Comm ents Source Name Type Date Date Clinician ADHESIVE Drug Active Rash Univers Class 5-19 ity of 00:00: [place] 00 Medical Branch Adhesive Propensi Active Rash ECG Univer s ty to 5-19 electrode ity of adverse 00:00: patches [place] [...] DRUG Active Low Rash Univers IN INGREDI 2- ity of 00:00: Medical Branch Vancomyc Propensi Active Rash Allergy Unive rs in ty to 2 Type: ity of adverse 00:00: ?Medicati [place] reaction 00 onCurrent Medic al s Treatment Branch & Notes: Can have vancomyci n, but needs to be run over 2 hours with benadryl. [place]unning/redn ess to face and neck; run over 2 hours [place] Allergy Active [facility]17 [facility] 00:[facility]: Medical 00 [facility] [place] Drug Active Other [facility] Allergy 8-17 reaction( [facility] 00:00: s): Medical 00 [facility] /Agitamarybetho Leo on - did not tolerate ALBUTERO Allergy Active Low Palpitations 2019-[address] [facility] - [facility] 00:00: Medical 00 Center ALBUTERO DRUG Active Med Palpitations 2020-0 Un glen L INGREDI 08-18 ity of 00:00: [place] 00 Medical Branch Albutero Drug Active Palpitations 2019-0 Toler[address] [facility] [...] St 0-18 [facility] 00:00: Medical 00 Center [place] Propensi Active Unknown - 2006-07 Unive rs ty to See comments 0-18 ity of adverse 00:00: [place] reaction 00 Medical s Branch PEACH DRUG Active Unknown-Cmnt 2006-07 Univ ers INGREDI 0-18 ity of 00:00: [place] 00 Medical Branch [place] Drug Active 2006-[address] Allergy 0-18 reaction( [facility]ukes 00:00: s): Medical 00 Unknown - Center See comments ADHESIVE Allergy Active [facility] TAPE 7-10 [facility] 00:00: Medical [...] St INS 3-28 [facility] 00:00: Medical 00 [place] Latex Propensi Active 2004-0 Univers ty to [...] Branch LATEX Allergy Active Low Rash 2004-[address] [facility] 3-28 [facility] 00:00: Medical 00 [place] PENICILL Drug Active 2004-0 Univers INS Class 3-28 ity of 00:00: [place] 00 Medical Branch POLLEN DRUG Active 2004-0 Univers EXTRACTS INGREDI 3-28 ity of 00:00: [place] 00 Medical Branch Penicill Propensi Active 2004-0 Univer s ins ty to 3-28 ity of adverse 00:00: [place] reaction 00 Medical s Branch Latex Drug Active Rash 2005-[address] [facility] Allergy 3-28 [facility] 00:00: Medical 00 [place] Penicill Drug Active Shortness Of Goes into [facility] ins Allergy Breath 3-28 shock [facility] 00:00: Medical 00 [place] Penicill Drug Active Shortness Of Goes into [facility] ins Allergy Breath 3-28 shock [facility] 00:00: Medical 00 [place] Family History Family Member Diagnosis Comments Start Date Stop Date Source Natural father Depression [facility] Natural mother Asthma [facility] Natural mother Heart disease [facility] Natural mother Hypertension [facility] Social History Social Habit Start Date Stop Date Quantity Comments Source History SDOH [facility] Alcohol Comment Medical C enter Gender identity Universit y [facility] Sexual orientation Univer sity [facility] History SDOH [facility] Alcohol Std Drinks Medica [facility] History SDOH [facility] Alcohol Binge Medical [address] [facility] History of Social 2023-01-18 2023-01-18 Univers ity of function 00:00:00 00:00:00 [facility] Exposure to 2022-12-10 2022-12-20 Not sure University of SARS-CoV-2 (event) 00:00:00 15:07:00 [facility] Tobacco use and 2022-04-08 2022-04-[address] [facility] kes exposure 00:00:00 00:00:00 tobacco non-user [facility] Alcohol intake 2022-04-08 2022-04-[address] [facility] es 00:00:00 00:00:00 non-drinker Medical Andreee r (finding) History SDOH 2022-04-08 2022-04-[address] [facility] Alcohol Frequency 00:00:00 00:00:00 [facility] Sex Assigned At [address] [facility] kes 00:00:00 00:00:00 [facility] Smoking Status Start Date Stop Date Source Never smoked tobacco [facility] Medications Ordered Filled Start Stop Current Ordering Indication Dosage Frequency Signature Comments Components Source Medication Medication Date Date Medication? Clinician (SIG) Name Name acetaminoph No 1000mg 1,000 mg, Univers en 03-20 Oral, ity of (TYLENOL) 06:30: 06:30 ONCE, 1 [place] tablet 00 :00 dose, On Medical 1,000 mg 03/20/23 Bran h at 0130, Routine NaCl 0.9% 0 2022- No 1000mL at 999 Uni vers (NS) bolus 03-20 mL/hr, ity of infusion 06:00: 07:56 1,000 mL, [place] 1,000 mL 00 :00 IV Medical Piggyback, Branch ONCE, 1 dose, On 03/20/23 at 0100, STAT ibuprofen 2022-0 2022- No 400mg 400 mg, Uni vers (IBU) 03-20 Oral, ity of tablet 400 05:30: 05:45 ONCE, 1 [place] mg 00 :00 dose, On Medical 03/20/23 Branch at 0030, THIERRY ketorolac 2022-0 2022- No 15mg 15 mg, Unive rs (TORADOL) 03-20 Slow IV ity of injection 04:30: 04:20 Push, [place] 15 mg 00 :00 ONCE, 1 Medical dose, On Branch Wed03/19/23 at 2330, Routine NaCl 0.9% 0 2022- No 1000mL at 999 Uni vers (NS) bolus 03-20 mL/hr, ity of infusion 04:30: 05:35 1,000 mL, [place] 1,000 mL 00 :00 IV Medical Infusion, Branch ONCE, 1 dose, On Wed03/19/23 at 2330, THIERRY NaCl 0.9% 0 2022- No 1000mL at 999 Uni vers (NS) bolus 03-10 mL/hr, ity of infusion 00:45: 01:54 1,000 mL, [place] as 1,000 mL 00 :00 IV Medical Infusion, Branch ONCE, 1 dose, On Wed03/09/23 at 1945, STAT ketorolac 2022-0 2022- No 30mg 30 mg, Unive rs (TORADOL) 03-10 Slow IV ity of injection 00:30: 23:39 Push, [place] 30 mg 00 :00 ONCE, 1 Medical dose, On Branch Wed03/09/23 at 1930, THIERRY ibuprofen 3-0 202- Yes [id number] 600mg Take 30 mL Univers 100 mg/5 mL 03-09 by mouth ity of oral 00:00: 04:59 every 8 [place] suspension 00 :00 (eight) Medica l hours for Branch 5 days. ibuprofen 2022- Yes [id number] 600mg Take 30 mL Univers 100 mg/5 mL 03-09 by mouth ity of oral 00:00: 04:59 every 8 [place] suspension 00 :00 (eight) Medica l hours for Branch 5 days. ibuprofen 2022- Yes [id number] 600mg Take 30 mL Univers 100 mg/5 mL 03-09 by mouth ity of oral 00:00: 04:59 every 8 [place] suspension 00 :00 (eight) Medica l hours for Branch 5 days. ibuprofen 2022- Yes [id number] 600mg Take 30 mL Univers 100 mg/5 mL 03-09 by mouth ity of oral 00:00: 04:59 every 8 [place] suspension 00 :00 (eight) Medica l hours for Branch 5 days. midazolam Yes [id number] 1{spray Use 1 Univers (NAYZILAM) 8-21 } [place] in 1 ity of 5 mg/spray 00:00: nostril [place] (0.1 mL) 00 SEE-INSTRU Medic al [place] CTIONS. 1 Branch spray in ONE nostril [...] 5 episodes in a month. midazolam Yes [id number] 1{spray Use 1 Univers (NAYZILAM) 8-21 } [place] in 1 ity of 5 mg/spray 00:00: nostril [place] (0.1 mL) 00 SEE-INSTRU Medic al [place] CTIONS. 1 Branch spray in ONE nostril [...] 5 episodes in a month. midazolam Yes [id number] 1{spray Use 1 Univers (NAYZILAM) 8-21 } [place] in 1 ity of 5 mg/spray 00:00: nostril [place] (0.1 mL) 00 SEE-INSTRU Medic al [place] CTIONS. 1 Branch spray in ONE nostril [...] 5 episodes in a month. midazolam Yes [id number] 1{spray Use 1 Univers (NAYZILAM) 8-21 } [place] in 1 ity of 5 mg/spray 00:00: nostril [place] (0.1 mL) 00 SEE-INSTRU Medic al [place] CTIONS. 1 Branch spray in ONE nostril [...] 5 episodes in a month. midazolam Yes [id number] 1{spray Use 1 Univers (NAYZILAM) 8-21 } [place] in 1 ity of 5 mg/spray 00:00: nostril [place] (0.1 mL) 00 SEE-INSTRU Medic al [place] CTIONS. 1 Branch spray in ONE nostril [...] 5 episodes in a month. midazolam Yes [id number] 1{spray Use 1 Univers (NAYZILAM) 8-21 } [place] in 1 ity of 5 mg/spray 00:00: nostril [place] (0.1 mL) 00 SEE-INSTRU Medic al [place] CTIONS. 1 Branch spray in ONE nostril [...] 5 episodes in a month. midazolam Yes [id number] 1{spray Use 1 Univers (NAYZILAM) 8-21 } [place] in 1 ity of 5 mg/spray 00:00: nostril [place] (0.1 mL) 00 SEE-INSTRU Medic al [place] CTIONS. 1 Branch spray in ONE nostril [...] 5 episodes in a month. midazolam Yes [id number] 1{spray Use 1 Univers (NAYZILAM) 8-21 } [place] in 1 ity of 5 mg/spray 00:00: nostril [place] (0.1 mL) 00 SEE-INSTRU Medic al [place] CTIONS. 1 Branch spray in ONE nostril [...] 5 episodes in a month. midazolam Yes [id number] 1{spray Use 1 Univers (NAYZILAM) 8-21 } [place] in 1 ity of 5 mg/spray 00:00: nostril [place] (0.1 mL) 00 SEE-INSTRU Medic al [place] CTIONS. 1 Branch spray in ONE nostril [...] than 5 episodes in a month. midazolam 2022-0 Yes [id number] 1{spray Use 1 Univers (NAYZILAM) 8-21 } [place] in 1 ity of 5 mg/spray 00:00: nostril [place] (0.1 mL) 00 SEE-INSTRU Medic al [place] CTIONS. 1 Branch spray in ONE nostril [...] 5 episodes in a month. midazolam Yes [id number] 1{spray Use 1 Univers (NAYZILAM) 8-21 } [place] in 1 ity of 5 mg/spray 00:00: nostril [place] (0.1 mL) 00 SEE-INSTRU Medic al [place] CTIONS. 1 Branch spray in ONE nostril [...] 14:14 Starting [place] 25 :20 on [facility] 02/23/23 at Branch 0908, Until Wed02/23/23 at 0914, THIERRY, CV Intraproce dure lidocaine 2022- No ONCE INTRA U nivers 1% (PF) 02-23 PROCEDURE, ity o f (XYLOCAINE) 14:06: 14:14 Starting [place] injection 04 :20 on [facility] 02/23/23 at Branch 0906, Until Wed02/23/23 at 0914, Routine, CV Intraproce dure lidocaine 2022- No ONCE INTRA U nivers 1% (PF) 02-23 PROCEDURE, ity o f (XYLOCAINE) 14:06: 14:14 Starting [place] injection 04 :20 on [facility] 02/23/23 at Branch 0906, Until Wed02/23/23 at 0914, Routine, CV Intraproce dure triamcinolo Yes Apply to Un glen ne 0.1% in 02-23 affected ity o f aquaphor 11:06: area(s). [place] ([address] ) ointment Branch ARIPiprazol Yes by [employer] s e ([facility] 02-23 Intramuscu ity [facility]) 11:06: lar route [place] 300 mg sers 27 once every Me dical month. Branch cariprazine Yes 1{capsu Take 1 U nivers (VRAYLAR) 3 02-23 le} capsule by it y of mg Cap 11:06: mouth in [place] [address] the Medical morning Branch and 1 capsule in the evening. triamcinolo Yes Apply to Un glen ne 0.1% in 02-23 affected ity o f aquaphor 11:06: area(s). [place] ([address] ) ointment Branch ARIPiprazol Yes by Air[employer] s e (ABILIY 02-23 Intramuscu ity [facility]) 11:06: lar route [place] 300 mg sers 27 once every Me dical month. Branch cariprazine Yes 1{capsu Take 1 U nivers (VRAYLAR) 3 8-08 le} capsule by it y of mg Cap 11:06: mouth in [place] [address] the Medical morning Branch and 1 capsule in the evening. triamcinolo 2022-0 Yes Apply to Un glen ne 0.1% in 808 affected ity o f aquaphor 11:06: area(s). [place] (COMPOUNDED [address] [place] [address] ) ointment Branch ARIPiprazol Yes by Univer s e (ABILIFY [address] [facility]) 11:06: lar route [place] 300 mg sers 27 once every Me dical month. Branch cariprazine Yes 1{capsu Take 1 U nivers (VRAYLAR) 3 8-08 le} capsule by it y of mg Cap 11:06: mouth in [place] [address] the Medical morning Branch and 1 capsule in the evening. triamcinolo 2022-0 Yes Apply to Un glen ne 0.1% in 808 affected ity o f aquaphor 11:06: area(s). [place] ([address] ) ointment Branch ARIPiprazol 2022-0 Yes by Univer s e (ABILIFY 02-[address] [facility]) 11:06: lar route [place] 300 mg sers 27 once every Me dical month. Branch cariprazine Yes 1{capsu Take 1 U nivers (VRAYLAR) 3 8-08 le} capsule by it y of mg Cap 11:06: mouth in [place] [address] the Medical morning Branch and 1 capsule in the evening. triamcinolo 2022-0 Yes Apply to Un glen ne 0.1% in 08 affected ity o f aquaphor 11:06: area(s). [place] (COMPOUNDED 27 Medical ) ointment Branch ARIPiprazol 2022-0 Yes by Univer s e (ABILIFY [address] [facility]) 11:06: lar route [place] 300 mg sers 27 once every Me dical month. Branch cariprazine 2022-0 Yes 1{capsu Take 1 U nivers (VRAYLAR) 3 8-08 le} capsule by it y of mg Cap 11:06: mouth in [place] [address] the Medical morning Branch and 1 capsule in the evening. triamcinolo 3-0 Yes Apply to Un glen ne 0.1% in 8-08 affected ity o f aquaphor 11:06: area(s). [place] ([address] ) ointment Branch ARIPiprazol 2022-0 Yes by Univer s e (ABILIFY 8-08 Intramuscu ity of [facility] 11:06: lar route [place] 300 mg sers 27 once every Me dical month. Branch cariprazine 2022-0 Yes 1{capsu Take 1 U nivers (VRAYLAR) 3 8-08 le} capsule by it y of mg Cap 11:06: mouth in [place] [address] the Medical morning Branch and 1 capsule in the evening. triamcinolo 3-0 Yes Apply to Un glen ne 0.1% in 8-08 affected ity o f aquaphor 11:06: area(s). [place] ([address] ) ointment Branch ARIPiprazol 2022-0 Yes by Univer s e (ABILIFY 8-08 Intramuscu [facility]y of [facility] 11:06: lar route [place] 300 mg sers 27 once every Me dical month. Branch cariprazine 2022-0 Yes 1{capsu Take 1 U nivers (VRAYLAR) 3 8-08 le} capsule by it y of mg Cap 11:06: mouth in [place] [address] the Medical morning Branch and 1 capsule in the evening. triamcinolo 3-0 Yes Apply to Un glen ne 0.1% in 8-08 affected ity o f aquaphor 11:06: area(s). [place] ([address] ) ointment Branch ARIPiprazol 2022-0 Yes by Univer s e (ABILIFY 8-08 Intramuscu ity [facility] 11:06: lar route [place] 300 mg sers 27 once every Me dical month. Branch cariprazine 2022-0 Yes 1{capsu Take 1 U nivers (VRAYLAR) 3 8-08 le} capsule by it y of mg Cap 11:06: mouth in [place] [address] the Medical morning Branch and 1 capsule in the evening. triamcinolo 2023-0 Yes Apply to Un glen ne 0.1% in 808 affected ity o f aquaphor 11:06: area(s). [place] (COMPOUNDED 27 Medical ) ointment Branch ARIPiprazol 2022-0 Yes by Univer s e (ABILIFY 02-[address] [facility]) 11:06: lar route [place] as 300 mg sers 27 once every Me dical month. Branch cariprazine 2022-0 Yes 1{capsu Take 1 U nivers (VRAYLAR) 3 8-08 le} capsule by it y of mg Cap 11:06: mouth in [place] [address] the Medical morning Branch and 1 capsule in the evening. triamcinolo 2022-0 Yes Apply to [place] 0.1% in 808 affected ity o f aquaphor 11:06: area(s). [place] (COMPOUNDED 27 Medical ) ointment Branch ARIPiprazol 2022-0 Yes by Univer s e (ABILIFY 02-[address] [facility]) 11:06: lar route [place] as 300 mg sers 27 once every Me dical month. Branch cariprazine 2022-0 Yes 1{capsu Take 1 U nivers (VRAYLAR) 3 8-08 le} capsule by it y of mg Cap 11:06: mouth in [place] [address] the Medical morning Branch and 1 capsule in the evening. triamcinolo 2022-0 Yes Apply to [place] 0.1% in 808 affected ity o f aquaphor 11:06: area(s). [place] (COMPOUNDED 27 Medical ) ointment Branch ARIPiprazol 2022-0 Yes by Univer s e (ABILIFY 02-23 [facility] 11:06: lar route [place] as 300 mg sers 27 once every Me dical month. Branch cariprazine 2022-0 Yes 1{capsu Take 1 U nivers (VRAYLAR) 3 8-08 le} capsule by it y of mg Cap 11:06: mouth in [place] [address] the Medical morning Branch and 1 capsule in the evening. triamcinolo 3-0 Yes Apply to [place] 0.1% in 8-08 affected ity o f aquaphor 11:06: area(s). [place] ([address] ) ointment Branch ARIPiprazol 2022-0 Yes by Univer s e (ABILIFY 02-[address] [facility]) 11:06: lar route [place] as 300 mg sers 27 once every Me dical month. Branch cariprazine 2022-0 Yes 1{capsu Take 1 U nivers (VRAYLAR) 3 8-08 le} capsule by it y of mg Cap 11:06: mouth in [place] [address] the Medical morning Branch and 1 capsule in the evening. triamcinolo 2022-0 Yes Apply to [place] 0.1% in 808 affected ity o f aquaphor 11:06: area(s). [place] ([address] ) ointment Branch ARIPiprazol 2022-0 Yes by Univer s e (ABILIFY 02-[address] [facility]) 11:06: lar route [place] as 300 mg sers 27 once every Me dical month. Branch cariprazine 2022-0 Yes 1{capsu Take 1 U nivers (VRAYLAR) 3 8-08 le} capsule by it y of mg Cap 11:06: mouth in [place] [address] the Medical morning Branch and 1 capsule in the evening. triamcinolo 3-0 Yes Apply to [place] 0.1% in 808 affected ity o f aquaphor 11:06: area(s). [place] ([address] ) ointment Branch ARIPiprazol 2022-0 Yes by Univer s e (ABILIFY 02-[address] [facility]) 11:06: lar route [place] 300 mg sers 27 once every Me dical month. Branch cariprazine 2022-0 Yes 1{capsu Take 1 U nivers (VRAYLAR) 3 8-08 le} capsule by it y of mg Cap 11:06: mouth in [place] [address] the Medical morning Branch and 1 capsule in the evening. triamcinolo 3-0 Yes Apply to [place] 0.1% in 8-08 affected ity o f aquaphor 11:06: area(s). [place] (COMPOUNDED 27 Medical ) ointment Branch ARIPiprazol 2022-0 Yes by Univer s e (ABILIFY [address] [facility]) 11:06: lar route [place] 300 mg sers 27 once every Me dical month. Branch cariprazine 2022-0 Yes 1{capsu Take 1 U nivers (VRAYLAR) 3 8-08 le} capsule by it y of mg Cap 11:06: mouth in [place] [address] the Medical morning Branch and 1 capsule in the evening. triamcinolo 2022-0 Yes Apply to [place] 0.1% in 8-08 affected ity o f aquaphor 11:06: area(s). [place] (COMPOUNDED 27 Medical ) ointment Branch ARIPiprazol 2022-0 Yes by Univer s e (ABILIFY [address] [facility]) 11:06: lar route [place] as 300 mg sers 27 once every Me dical month. Branch cariprazine 2022-0 Yes 1{capsu Take 1 U nivers (VRAYLAR) 3 8-08 le} capsule by it y of mg Cap 11:06: mouth in [place] [address] the Medical morning Branch and 1 capsule in the evening. triamcinolo 2022-0 Yes Apply to [place] 0.1% in 8-08 affected ity o f aquaphor 11:06: area(s). [place] [facility] ) ointment Branch ARIPiprazol 2022-0 Yes by Univer s e (ABILIFY [address] [facility]) 11:06: lar route [place] as 300 mg sers 27 once every Me dical month. Branch cariprazine 2022-0 Yes 1{capsu Take 1 U nivers (VRAYLAR) 3 8-08 le} capsule by it y of mg Cap 11:06: mouth in [place] [address] the Medical morning Branch and 1 capsule in the evening. triamcinolo 2022-0 Yes Apply to [place] 0.1% in 8-08 affected ity o f aquaphor 11:06: area(s). [place] (COMPOUNDED 27 Medical ) ointment Branch ARIPiprazol 2022-0 Yes by Univer s e (ABILIFY 8-08 Intramuscu ity of [facility]) 11:06: lar route [place] as 300 mg sers 27 once every Me dical month. Branch cariprazine 2022-0 Yes 1{capsu Take 1 U nivers (VRAYLAR) 3 8-08 le} capsule by it y of mg Cap 11:06: mouth in [place] [address] the Medical morning Branch and 1 capsule in the evening. triamcinolo 2022-0 Yes Apply to [place] 0.1% in 8-08 affected ity o f aquaphor 11:06: area(s). [place] (COMPOUNDED 27 Medical ) ointment Branch ARIPiprazol 2022-0 Yes by Univer s e (ABILIFY 8-08 Intramuscu ity of [facility]) 11:06: lar route [place] as 300 mg sers 27 once every Me dical month. Branch cariprazine 2022-0 Yes 1{capsu Take 1 U nivers (VRAYLAR) 3 8-08 le} capsule by it y of mg Cap 11:06: mouth in [place] [address] the Medical morning Branch and 1 capsule in the evening. triamcinolo 2022-0 Yes Apply to [place] 0.1% in 8-08 affected ity o f aquaphor 11:06: area(s). [place] (COMPOUNDED 27 Medical ) ointment Branch ARIPiprazol 2022-0 Yes by Univer s e (ABILIFY 8- Intramuscu ity of [facility]) 11:06: lar route [place] as 300 mg sers 27 once every Me dical month. Branch cariprazine 2022-0 Yes 1{capsu Take 1 U nivers (VRAYLAR) 3 8-08 le} capsule by it y of mg Cap 11:06: mouth in [place] [address] the Medical morning Branch and 1 capsule in the evening. triamcinolo 2022-0 Yes Apply to [place] 0.1% in 8-08 affected ity o f aquaphor 11:06: area(s). [place] (COMPOUNDED 27 Medical ) ointment Branch ARIPiprazol 2022-0 Yes by Univer s e (ABILIFY 8-08 Intramuscu ity of [facility]) 11:06: lar route [place] as 300 mg sers 27 once every Me dical month. Branch cariprazine 2022-0 Yes 1{capsu Take 1 U nivers (VRAYLAR) 3 8-08 le} capsule by it y of mg Cap 11:06: mouth in [place] [address] the Medical morning Branch and 1 capsule in the evening. triamcinolo 2022-0 Yes Apply to [place] 0.1% in 8-08 affected ity o f aquaphor 11:06: area(s). [place] (COMPOUNDED Medical ) ointment Branch ARIPiprazol 2022-0 Yes by Univer s e (ABILIFY 8-[address] [facility]) 11:06: lar route [place] as 300 mg sers 27 once every Me dical month. Branch cariprazine 2022-0 Yes 1{capsu Take 1 U nivers (VRAYLAR) 3 8-08 le} capsule by it y of mg Cap 11:06: mouth in [place] [address] the Medical morning Branch and 1 capsule in the evening. triamcinolo 2022-0 Yes Apply to [place] 0.1% in 8-08 affected ity o f aquaphor 11:06: area(s). [place] ([facility] ) ointment Branch ARIPiprazol 2022-0 Yes by [employer] s e (ABILIFY [address] [facility]) 11:06: lar route [place] as 300 mg sers 27 once every Me dical month. Branch cariprazine 2022-0 Yes 1{capsu Take 1 U nivers (VRAYLAR) 3 8-08 le} capsule by it y of mg Cap 11:06: mouth in [place] [address] the Medical morning Branch and 1 capsule in the evening. triamcinolo 2022-0 Yes Apply to [place] 0.1% in 8-08 affected ity o f aquaphor 11:06: area(s). [place] (COMPOUNDED 27 Medical ) ointment Branch ARIPiprazol 2022-0 Yes by Univer s e (ABILIFY 8-[address] [facility]) 11:06: lar route [place] as 300 mg sers 27 once every Me dical month. Branch cariprazine 2022-0 Yes 1{capsu Take 1 U nivers (VRAYLAR) 3 8-08 le} capsule by it y of mg Cap 11:06: mouth in [place] [address] the Medical morning Branch and 1 capsule in the evening. triamcinolo 2022-0 Yes Apply to [place] 0.1% in 8-08 affected ity o f aquaphor 11:06: area(s). [place] (COMPOUNDED 27 Medical ) ointment Branch ARIPiprazol 2022-0 Yes by Univer s e (ABILIFY 8-[address] [facility]) 11:06: lar route [place] as 300 mg sers 27 once every Me dical month. Branch cariprazine 2022-0 Yes 1{capsu Take 1 U nivers (VRAYLAR) 3 8-08 le} capsule by it y of mg Cap 11:06: mouth in [place] [address] the Medical morning Branch and 1 capsule in the evening. triamcinolo 2022-0 Yes Apply to [place] 0.1% in 808 affected ity o f aquaphor 11:06: area(s). [place] (COMPOUNDED 27 Medical ) ointment Branch ARIPiprazol 2022-0 Yes by [employer] s e (ABILIFY 8-08 [facility] 11:06: lar route [place] as 300 mg sers 27 once every Me dical month. Branch cariprazine 2022-0 Yes 1{capsu Take 1 U nivers (VRAYLAR) 3 8-08 le} capsule by it y of mg Cap 11:06: mouth in [place] [address] the Medical morning Branch and 1 capsule in the evening. SUMAtriptan 2022-0 Yes [id number] 5mg Use 1 U nivers 5 8-08 [place] in ity of mg/actuatio 00:00: each [place] n nasal 00 nostril as Medica l spray needed for Branch headache symptoms. May repeat in 2 hours if needed. Max of 4 sprays per 24 hours SUMAtriptan 3-0 Yes [id number] 5mg Use 1 U nivers 5 8-08 [place] in ity of mg/actuatio 00:00: each [place] n nasal 00 nostril as Medica l spray needed for Branch headache symptoms. May repeat in 2 hours if needed. Max of 4 sprays per 24 hours SUMAtriptan 2023-0 Yes [id number] 5mg Use 1 U nivers 5 8-08 [place] in ity of mg/actuatio 00:00: each [place] n nasal 00 nostril as Medica l spray needed for Branch headache symptoms. May repeat in 2 hours if needed. Max of 4 sprays per 24 hours SUMAtriptan 2023-0 Yes [id number] 5mg Use 1 U nivers 5 8-08 [place] in ity of mg/actuatio 00:00: each [place] n nasal 00 nostril as Medica l spray needed for Branch headache symptoms. May repeat in 2 hours if needed. Max of 4 sprays per 24 hours SUMAtriptan 3-0 Yes [id number] 5mg Use 1 U nivers 5 8-08 [place] in ity of mg/actuatio 00:00: each [place] n nasal 00 nostril as Medica l spray needed for Branch headache symptoms. May repeat in 2 hours if needed. Max of 4 sprays per 24 hours SUMAtriptan 3-0 Yes [id number] 5mg Use 1 U nivers 5 8-08 [place] in ity of mg/actuatio 00:00: each [place] n nasal 00 nostril as Medica l spray needed for Branch headache symptoms. May repeat in 2 hours if needed. Max of 4 sprays per 24 hours SUMAtriptan 3-0 Yes [id number] 5mg Use 1 U nivers 5 8-08 [place] in ity of mg/actuatio 00:00: each [place] n nasal 00 nostril as Medica l spray needed for Branch headache symptoms. May repeat in 2 hours if needed. Max of 4 sprays per 24 hours SUMAtriptan 2023-0 Yes [id number] 5mg Use 1 U nivers 5 8-08 [place] in ity of mg/actuatio 00:00: each [place] n nasal 00 nostril as Medica l spray needed for Branch headache symptoms. May repeat in 2 hours if needed. Max of 4 sprays per 24 hours SUMAtriptan 2023-0 Yes [id number] 5mg Use 1 U nivers 5 8-08 [place] in ity of mg/actuatio 00:00: each [place] n nasal 00 nostril as Medica l spray needed for Branch headache symptoms. May repeat in 2 hours if needed. Max of 4 sprays per 24 hours SUMAtriptan 2023-0 Yes [id number] 5mg Use 1 U nivers 5 8-08 [place] in ity of mg/actuatio 00:00: each [place] n nasal 00 nostril as Medica l spray needed for Branch headache symptoms. May repeat in 2 hours if needed. Max of 4 sprays per 24 hours SUMAtriptan 2023-0 Yes [id number] 5mg Use 1 U nivers 5 8-08 [place] in ity of mg/actuatio 00:00: each [place] n nasal 00 nostril as Medica l spray needed for Branch headache symptoms. May repeat in 2 hours if needed. Max of 4 sprays per 24 hours SUMAtriptan 2023-0 Yes [id number] 5mg Use 1 U nivers 5 8-08 [place] in ity of mg/actuatio 00:00: each [place] n nasal 00 nostril as Medica l spray needed for Branch headache symptoms. May repeat in 2 hours if needed. Max of 4 sprays per 24 hours SUMAtriptan 2023-0 Yes [id number] 5mg Use 1 U nivers 5 8-08 [place] in ity of mg/actuatio 00:00: each [place] n nasal 00 nostril as Medica l spray needed for Branch headache symptoms. May repeat in 2 hours if needed. Max of 4 sprays per 24 hours SUMAtriptan 2023-0 Yes [id number] 5mg Use 1 U nivers 5 8-08 [place] in ity of mg/actuatio 00:00: each [place] n nasal 00 nostril as Medica l spray needed for Branch headache symptoms. May repeat in 2 hours if needed. Max of 4 sprays per 24 hours SUMAtriptan 2023-0 Yes [id number] 5mg Use 1 U nivers 5 8-08 [place] in ity of mg/actuatio 00:00: each [place] n nasal 00 nostril as Medica l spray needed for Branch headache symptoms. May repeat in 2 hours if needed. Max of 4 sprays per 24 hours SUMAtriptan 2023-0 Yes [id number] 5mg Use 1 U nivers 5 8-08 [place] in ity of mg/actuatio 00:00: each [place] n nasal 00 nostril as Medica l spray needed for Branch headache symptoms. May repeat in 2 hours if needed. Max of 4 sprays per 24 hours SUMAtriptan 2023-0 Yes [id number] 5mg Use 1 U nivers 5 8-08 [place] in ity of mg/actuatio 00:00: each [place] n nasal 00 nostril as Medica l spray needed for Branch headache symptoms. May repeat in 2 hours if needed. Max of 4 sprays per 24 hours SUMAtriptan 3-0 Yes [id number] 5mg Use 1 U nivers 5 8-08 [place] in ity of mg/actuatio 00:00: each [place] n nasal 00 nostril as Medica l spray needed for Branch headache symptoms. May repeat in 2 hours if needed. Max of 4 sprays per 24 hours SUMAtriptan 3-0 Yes [id number] 5mg Use 1 U nivers 5 8-08 [place] in ity of mg/actuatio 00:00: each [place] n nasal 00 nostril as Medica l spray needed for Branch headache symptoms. May repeat in 2 hours if needed. Max of 4 sprays per 24 hours SUMAtriptan 2022-0 Yes [id number] 5mg Use 1 U nivers 5 8-08 [place] in ity of mg/actuatio 00:00: each [place] n nasal 00 nostril as Medica l spray needed for Branch headache symptoms. May repeat in 2 hours if needed. Max of 4 sprays per 24 hours SUMAtriptan 2022-0 Yes [id number] 5mg Use 1 U nivers 5 8-08 [place] in ity of mg/actuatio 00:00: each [place] n nasal 00 nostril as Medica l spray needed for Branch headache symptoms. May repeat in 2 hours if needed. Max of 4 sprays per 24 hours doxycycline 2022-0 2022- Yes [id number] 100mg Take 1 [facility] hyclate 100 02-23-14 capsule by i ty of mg capsule 00:00: 04:59 mouth [place] 00 :00 every 12 Medical (twelve) Branch hours for 5 days. doxycycline 2022-0 2022- Yes [id number] 100mg Take 1 [facility] hyclate 100 02-23-14 capsule by i ty of mg capsule 00:00: 04:59 mouth [place] 00 :00 every 12 Medical (twelve) Branch hours for 5 days. doxycycline 2022-0 2023- Yes [id number] 100mg Take 1 [facility] hyclate 100 02-2314 capsule by i ty of mg capsule [...] SPRY 27 :00 Medical Branch levalbutero Yes [id number] 2{puff} Inhale 2 Univers l (XOPENEX 8-07 Puffs ity of HFA) 45 00:00: every 6 [place] mcg/actuati 00 (six) Medical on inhaler hours as Branc h needed for Wheezing. INHALE 2 PUFFS BY MOUTH EVERY 6 HOURS NEEDED BEFORE EXERCISE OR FOR WHEEZING/S HORTNESS OF BREATH. levalbutero Yes [id number] 2{puff} Inhale 2 Univers l (XOPENEX 8-07 Puffs ity of HFA) 45 00:00: every 6 [place] mcg/actuati 00 (six) Medical on inhaler hours as Branc h needed for Wheezing. INHALE 2 PUFFS BY MOUTH EVERY 6 HOURS NEEDED BEFORE EXERCISE OR FOR WHEEZING/S HORTNESS OF BREATH. levalbutero Yes [id number] 2{puff} Inhale 2 Univers l (XOPENEX 8-07 Puffs ity of HFA) 45 00:00: every 6 [place] mcg/actuati 00 (six) Medical on inhaler hours as Branc h needed for Wheezing. INHALE 2 PUFFS BY MOUTH EVERY 6 HOURS NEEDED BEFORE EXERCISE OR FOR WHEEZING/S HORTNESS OF BREATH. SUMAtriptan Yes [id number] 1 spray in Univers 5 8-07 each ity of mg/actuatio 00:00: nostril as [place] n nasal 00 needed for Medica l spray migraine. Branch If symptoms persist or return, may repeat dose after =1 hour. Do not exceed 4 sprays total in any 24-hour period. levalbutero 0 Yes [id number] 2{puff} Inhale 2 Univers l (XOPENEX 8-07 Puffs ity of HFA) 45 00:00: every 6 [place] mcg/actuati 00 (six) Medical on inhaler hours as Branc h needed for Wheezing. INHALE 2 PUFFS BY MOUTH EVERY 6 HOURS NEEDED BEFORE EXERCISE OR FOR WHEEZING/S HORTNESS OF BREATH. levalbutero Yes [id number] 2{puff} Inhale 2 Univers l (XOPENEX 8-07 Puffs ity of HFA) 45 00:00: every 6 [place] mcg/actuati 00 (six) Medical on inhaler hours as Branc h needed for Wheezing. INHALE 2 PUFFS BY MOUTH EVERY 6 HOURS NEEDED BEFORE EXERCISE OR FOR WHEEZING/S HORTNESS OF BREATH. levalbutero Yes [id number] 2{puff} Inhale 2 Univers l (XOPENEX 8-07 Puffs ity of HFA) 45 00:00: every 6 [place] mcg/actuati 00 (six) Medical on inhaler hours as Branc h needed for Wheezing. INHALE 2 PUFFS BY MOUTH EVERY 6 HOURS NEEDED BEFORE EXERCISE OR FOR WHEEZING/S HORTNESS OF BREATH. levalbutero Yes [id number] 2{puff} Inhale 2 Univers l (XOPENEX 8-07 Puffs ity of HFA) 45 00:00: every 6 [place] mcg/actuati 00 (six) Medical on inhaler hours as Branc h needed for Wheezing. INHALE 2 PUFFS BY MOUTH EVERY 6 HOURS NEEDED BEFORE EXERCISE OR FOR WHEEZING/S HORTNESS OF BREATH. levalbutero Yes [id number] 2{puff} Inhale 2 Univers l (XOPENEX 8-07 Puffs ity of HFA) 45 00:00: every 6 [place] mcg/actuati 00 (six) Medical on inhaler hours as Branc h needed for Wheezing. INHALE 2 PUFFS BY MOUTH EVERY 6 HOURS NEEDED BEFORE EXERCISE OR FOR WHEEZING/S HORTNESS OF BREATH. levalbutero 0 Yes [id number] 2{puff} Inhale 2 Univers l (XOPENEX 8-07 Puffs ity of HFA) 45 00:00: every 6 [place] mcg/actuati 00 (six) Medical on inhaler hours as Branc h needed for Wheezing. INHALE 2 PUFFS BY MOUTH EVERY 6 HOURS NEEDED BEFORE EXERCISE OR FOR WHEEZING/S HORTNESS OF BREATH. levalbutero 0 Yes [id number] 2{puff} Inhale 2 Univers l (XOPENEX 8-07 Puffs ity of HFA) 45 00:00: every 6 [place] mcg/actuati 00 (six) Medical on inhaler hours as Branc h needed for Wheezing. INHALE 2 PUFFS BY MOUTH EVERY 6 HOURS NEEDED BEFORE EXERCISE OR FOR WHEEZING/S HORTNESS OF BREATH. levalbutero Yes [id number] 2{puff} Inhale 2 Univers l (XOPENEX 8-07 Puffs ity of HFA) 45 00:00: every 6 [place] mcg/actuati 00 (six) Medical on inhaler hours as Branc h needed for Wheezing. INHALE 2 PUFFS BY MOUTH EVERY 6 HOURS NEEDED BEFORE EXERCISE OR FOR WHEEZING/S HORTNESS OF BREATH. levalbutero Yes [id number] 2{puff} Inhale 2 Univers l (XOPENEX 8-07 Puffs ity of HFA) 45 00:00: every 6 [place] mcg/actuati 00 (six) Medical on inhaler hours as Branc h needed for Wheezing. INHALE 2 PUFFS BY MOUTH EVERY 6 HOURS NEEDED BEFORE EXERCISE OR FOR WHEEZING/S HORTNESS OF BREATH. levalbutero 0 Yes [id number] 2{puff} Inhale 2 Univers l (XOPENEX 8-07 Puffs ity of HFA) 45 00:00: every 6 [place] mcg/actuati 00 (six) Medical on inhaler hours as Branc h needed for Wheezing. INHALE 2 PUFFS BY MOUTH EVERY 6 HOURS NEEDED BEFORE EXERCISE OR FOR WHEEZING/S HORTNESS OF BREATH. levalbutero 0 Yes [id number] 2{puff} Inhale 2 Univers l (XOPENEX 8-07 Puffs ity of HFA) 45 00:00: every 6 [place] mcg/actuati 00 (six) Medical on inhaler hours as Branc h needed for Wheezing. INHALE 2 PUFFS BY MOUTH EVERY 6 HOURS NEEDED BEFORE EXERCISE OR FOR WHEEZING/S HORTNESS OF BREATH. levalbutero 2022-0 Yes [id number] 2{puff} Inhale 2 Univers l (XOPENEX 8-07 Puffs ity of HFA) 45 00:00: every 6 [place] mcg/actuati 00 (six) Medical on inhaler hours as Branc h needed for Wheezing. INHALE 2 PUFFS BY MOUTH EVERY 6 HOURS NEEDED BEFORE EXERCISE OR FOR WHEEZING/S HORTNESS OF BREATH. levalbutero 2022-0 Yes [id number] 2{puff} Inhale 2 Univers l (XOPENEX 8-07 Puffs ity of HFA) 45 00:00: every 6 [place] mcg/actuati 00 (six) Medical on inhaler hours as Branc h needed for Wheezing. INHALE 2 PUFFS BY MOUTH EVERY 6 HOURS NEEDED BEFORE EXERCISE OR FOR WHEEZING/S HORTNESS OF BREATH. levalbutero 0 Yes [id number] 2{puff} Inhale 2 Univers l (XOPENEX 8-07 Puffs ity of HFA) 45 00:00: every 6 [place] mcg/actuati 00 (six) Medical on inhaler hours as Branc h needed for Wheezing. INHALE 2 PUFFS BY MOUTH EVERY 6 HOURS NEEDED BEFORE EXERCISE OR FOR WHEEZING/S HORTNESS OF BREATH. levalbutero 0 Yes [id number] 2{puff} Inhale 2 Univers l (XOPENEX 8-07 Puffs ity of HFA) 45 00:00: every 6 [place] mcg/actuati 00 (six) Medical on inhaler hours as Branc h needed for Wheezing. INHALE 2 PUFFS BY MOUTH EVERY 6 HOURS NEEDED BEFORE EXERCISE OR FOR WHEEZING/S HORTNESS OF BREATH. levalbutero 0 Yes [id number] 2{puff} Inhale 2 Univers l (XOPENEX 8-07 Puffs ity of HFA) 45 00:00: every 6 [place] mcg/actuati 00 (six) Medical on inhaler hours as Branc h needed for Wheezing. INHALE 2 PUFFS BY MOUTH EVERY 6 HOURS NEEDED BEFORE EXERCISE OR FOR WHEEZING/S HORTNESS OF BREATH. levalbutero 0 Yes [id number] 2{puff} Inhale 2 Univers l (XOPENEX 8-07 Puffs ity of HFA) 45 00:00: every 6 [place] mcg/actuati 00 (six) Medical on inhaler hours as Branc h needed for Wheezing. INHALE 2 PUFFS BY MOUTH EVERY 6 HOURS NEEDED BEFORE EXERCISE OR FOR WHEEZING/S HORTNESS OF BREATH. levalbutero 0 Yes [id number] 2{puff} Inhale 2 Univers l (XOPENEX 8-07 Puffs ity of HFA) 45 00:00: every 6 [place] mcg/actuati 00 (six) Medical on inhaler hours as Branc h needed for Wheezing. INHALE 2 PUFFS BY MOUTH EVERY 6 HOURS NEEDED BEFORE EXERCISE OR FOR WHEEZING/S HORTNESS OF BREATH. levalbutero Yes [id number] 2{puff} Inhale 2 Univers l (XOPENEX 8-07 Puffs ity of HFA) 45 00:00: every 6 [place] mcg/actuati 00 (six) Medical on inhaler hours as Branc h needed for Wheezing. INHALE 2 PUFFS BY MOUTH EVERY 6 HOURS NEEDED BEFORE EXERCISE OR FOR WHEEZING/S HORTNESS OF BREATH. levalbutero 0 Yes [id number] 2{puff} Inhale 2 Univers l (XOPENEX 8-07 Puffs ity of HFA) 45 00:00: every 6 [place] mcg/actuati 00 (six) Medical on inhaler hours as Branc h needed for Wheezing. INHALE 2 PUFFS BY MOUTH EVERY 6 HOURS NEEDED BEFORE EXERCISE OR FOR WHEEZING/S HORTNESS OF BREATH. levalbutero 0 Yes [id number] 2{puff} Inhale 2 Univers l (XOPENEX 8-07 Puffs ity of HFA) 45 00:00: every 6 [place] mcg/actuati 00 (six) Medical on inhaler hours as Branc h needed for Wheezing. INHALE 2 PUFFS BY MOUTH EVERY 6 HOURS NEEDED BEFORE EXERCISE OR FOR WHEEZING/S HORTNESS OF BREATH. SUMAtriptan 2022- No [id number] 1 spray in [place] [address] 02-22 each ity of mg/actuatio 00:00: 00:00 nostril as [place] n nasal 00 :00 needed for Medica l spray migraine. Branch If symptoms persist or return, may repeat dose after =1 hour. Do not exceed 4 sprays total in any 24-hour period. SUMAtriptan 2022- No [id number] 1 spray in [place] [address] 02-22 each ity of mg/actuatio 00:00: 00:00 [...] Medical Piggyback, Branch ONCE, 1 dose, On [facility] 02/01/23 at 0145, STAT iopamidol 2022- No [id number] 70mL 70 mL, U nivers (ISOVUE 02-01 Intravenou ity o f 370-500 mL) 06:45: 05:47 s, ONCE, 1 [place] injection 00 :00 dose, On Medica l 70 mL [facility] 02/01/23 at 0145, Routine IMITREX 5 Yes as needed Uni vers MG/ACTUATIO 01-28 for ity of N NASAL 15:08: migraines [place] SPRY 59 Medical Branch triamcinolo Yes Apply to [place] 0.1% in 01-28 affected ity o f aquaphor 15:08: area(s). [place] (COMPOUNDED 59 Medical ) ointment Branch ARIPiprazol Yes by Wil s e (ABILIFY 01-28 Intramuscu ity of [facility]) 15:08: lar route [place] as 300 mg sers 59 once every Me dical month. Branch cariprazine Yes 1{capsu Take 1 U nivers (VRAYLAR) 3 01-28 le} capsule by it y of mg Cap 15:08: mouth in [place] 59 the Medical morning Branch and 1 capsule in the evening. IMITREX 5 Yes as needed Uni vers MG/ACTUATIO 7 for ity of N NASAL 15:08: migraines [place] SPRY 59 Medical Branch [facility] Yes Apply to [place] 0.1% in - affected ity o f aquaphor 15:08: area(s). [place] (COMPOUNDED 59 Medical ) ointment Branch ARIPiprazol Yes by Univer s e (ABILIFY 7 [facility] 15:08: lar route [place] 300 mg sers 59 once every Me dical month. Branch cariprazine Yes 1{capsu Take 1 U nivers (VRAYLAR) 3 7- le} capsule by it y of mg Cap 15:08: mouth in [place] [address] the Medical morning Branch and 1 capsule in the evening. IMITREX 5 Yes as needed Uni vers MG/ACTUATIO 01-28 for ity of N NASAL 15:08: migraines [place] [address] Medical Branch [facility] Yes Apply to [place] 0.1% in 01-28 affected ity o f aquaphor 15:08: area(s). [place] (COMPOUNDED 59 Medical ) ointment Branch ARIPiprazol Yes by [employer] s e (ABILIFY 7 Intramuscu ity of [facility]) 15:08: lar route [place] 300 mg sers 59 once every Me dical month. Branch cariprazine Yes 1{capsu Take 1 U nivers (VRAYLAR) 3 7-13 le} capsule by it y of mg Cap 15:08: mouth in [place] [address] the Medical morning Branch and 1 capsule in the evening. IMITREX 5 Yes as needed Uni vers MG/ACTUATIO 713 for ity of N NASAL 15:08[facility] Yes Apply to [place] 0.1% in 713 affected ity o f aquaphor 15:08: area(s). [place] (COMPOUNDED 59 Medical ) ointment Branch ARIPiprazol Yes by Univer s e (ABILIFY [address] [facility]) 15:08: lar route [place] 300 mg sers 59 once every Me dical month. Branch cariprazine Yes 1{capsu Take 1 U nivers (VRAYLAR) 3 7-13 le} capsule by it y of mg Cap 15:08: mouth in [place] 59 the Medical morning Branch and 1 capsule in the evening. IMITREX 5 2022-0 Yes as needed Uni vers MG/ACTUATIO 7-13 for ity of N NASAL 15:08: migraines [place] SPRY 59 Medical Branch [facility] Yes Apply to [place] 0.1% in 713 affected ity o f aquaphor 15:08: area(s). [place] (COMPOUNDED 59 Medical ) ointment Branch ARIPiprazol Yes by Univer s e (ABILIFY [address] [facility]) 15:08: lar route [place] 300 mg sers 59 once every Me dical month. Branch cariprazine Yes 1{capsu Take 1 U nivers (VRAYLAR) 3 7-13 le} capsule by it y of mg Cap 15:08: mouth in [place] [address] the Medical morning Branch and 1 capsule in the evening. IMITREX 5 2022-0 Yes as needed Uni vers MG/ACTUATIO 7-13 for ity of N NASAL 15:08: migraines [place] SPRY 59 Medical Branch [facility] Yes Apply to [place] 0.1% in 7-13 affected ity o f aquaphor 15:08: area(s). [place] (COMPOUNDED 59 Medical ) ointment Branch ARIPiprazol Yes by Univer s e (ABILIFY [address] [facility]) 15:08: lar route [place] 300 mg sers 59 once every Me dical month. Branch cariprazine Yes 1{capsu Take 1 U nivers (VRAYLAR) 3 7-13 le} capsule by it y of mg Cap 15:08: mouth in [place] 59 the Medical morning Branch and 1 capsule in the evening. IMITREX 5 0 Yes as needed Uni vers MG/ACTUATIO 7-13 for ity of N NASAL 15:08: migraines [place] SPRY 59 Medical Branch [facility] Yes Apply to [place] 0.1% in 7-13 affected ity o f aquaphor 15:08: area(s). [place] (COMPOUNDED 59 Medical ) ointment Branch ARIPiprazol Yes by Univer s e (ABILIFY 7 Intramuscu ity of [employer]) 15:08: lar route [place] 300 mg sers 59 once every Me dical month. Branch cariprazine Yes 1{capsu Take 1 U nivers (VRAYLAR) 3 7-13 le} capsule by it y of mg Cap 15:08: mouth in [place] [address] the Medical morning Branch and 1 capsule in the evening. IMITREX 5 0 Yes as needed Uni vers MG/ACTUATIO 7- for ity of N NASAL 15:08[facility] Yes Apply to [place] 0.1% in 01-28 affected ity o f aquaphor 15:08: area(s). [place] (COMPOUNDED 59 Medical ) ointment Branch ARIPiprazol Yes by Univer s e (ABILIFY 7 Intramuscu ity of [employer]) 15:08: lar route [place] 300 mg sers 59 once every Me dical month. Branch cariprazine Yes 1{capsu Take 1 U nivers (VRAYLAR) 3 7-13 le} capsule by it y of mg Cap 15:08: mouth in [place] 59 the Medical morning Branch and 1 capsule in the evening. IMITREX 5 0 Yes as needed Uni vers MG/ACTUATIO 7-13 for ity of N NASAL 15:08: migraines [place] SPRY 59 Medical Branch [facility] Yes Apply to [place] 0.1% in 7-13 affected ity o f aquaphor 15:08: area(s). [place] (COMPOUNDED 59 Medical ) ointment Branch ARIPiprazol Yes by Univer s e (ABILIFY 7-13 Intramuscu ity of [employer]) 15:08: lar route [place] 300 mg sers 59 once every Me dical month. Branch cariprazine Yes 1{capsu Take 1 U nivers (VRAYLAR) 3 7-13 le} capsule by it y of mg Cap 15:08: mouth in [place] [address] the Medical morning Branch and 1 capsule in the evening. IMITREX 5 2022-0 Yes as needed Uni vers MG/ACTUATIO 7-13 for ity of N NASAL 15:08: migraines [address] Branch [facility] Yes Apply to [place] 0.1% in 7 affected ity o f aquaphor 15:08: area(s). [place] (COMPOUNDED 59 Medical ) ointment Branch ARIPiprazol Yes by Univer s e (ABILIFY 713 Intr[facility] ity of [employer]) 15:08: lar route [place] 300 mg sers 59 once every Me dical month. Branch cariprazine Yes 1{capsu Take 1 U nivers (VRAYLAR) 3 7-13 le} capsule by it y of mg Cap 15:08: mouth in [place] [address] the Medical morning Branch and 1 capsule in the evening. IMITREX 5 2022-0 Yes as needed Uni vers MG/ACTUATIO 7-13 for ity of N NASAL 15:08: migraines [place] [address] [facility] Yes Apply to [place] 0.1% in 713 affected ity o f aquaphor 15:08: area(s). [place] (COMPOUNDED 59 Medical ) ointment Branch ARIPiprazol Yes by Univer s e (ABILIFY 713 Intramuscu ity of [facility]) 15:08: lar route [place] 300 mg sers 59 once every Me dical month. Branch cariprazine Yes 1{capsu Take 1 U nivers (VRAYLAR) 3 7-13 le} capsule by it y of mg Cap 15:08: mouth in [place] 59 the Medical morning Branch and 1 capsule in the evening. IMITREX 5 0 Yes as needed Uni vers MG/ACTUATIO 7-13 for ity of N NASAL 15:08: migraines [address] Yes Apply to [place] 0.1% in 7-13 affected ity o f aquaphor 15:08: area(s). [place] (COMPOUNDED 59 Medical ) ointment Branch ARIPiprazol Yes by Univer s e (ABILIFY [address] [facility]) 15:08: lar route [place] 300 mg sers 59 once every Me dical month. Branch cariprazine Yes 1{capsu Take 1 U nivers (VRAYLAR) 3 7-13 le} capsule by it y of mg Cap 15:08: mouth in [place] [address] the Medical morning Branch and 1 capsule in the evening. IMITREX 5 Yes as needed Uni vers MG/ACTUATIO 7-13 for ity of N NASAL 15:08: migraines [address] Yes Apply to [place] 0.1% in 01-28 affected ity o f aquaphor 15:08: area(s). [place] (COMPOUNDED 59 Medical ) ointment Branch ARIPiprazol Yes by [employer] s e (ABILIFY [address] [facility]) 15:08: lar route [place] 300 mg sers 59 once every Me dical month. Branch cariprazine Yes 1{capsu Take 1 U nivers (VRAYLAR) 3 7-13 le} capsule by it y of mg Cap 15:08: mouth in [place] 59 the Medical morning Branch and 1 capsule in the evening. IMITREX 5 0 Yes as needed Uni vers MG/ACTUATIO 7-13 for ity of N NASAL 15:08: migraines [address] Yes Apply to [place] 0.1% in 7-13 affected ity o f aquaphor 15:08: area(s). [place] (COMPOUNDED 59 Medical ) ointment Branch ARIPiprazol Yes by Univer s e (ABILIFY 713 Intramus[facility] ity of [employer]) 15:08: lar route [place] 300 mg sers 59 once every Me dical month. Branch cariprazine Yes 1{capsu Take 1 U nivers (VRAYLAR) 3 7-13 le} capsule by it y of mg Cap 15:08: mouth in [place] 59 the Medical morning Branch and 1 capsule in the evening. IMITREX 5 0 Yes as needed Uni vers MG/ACTUATIO 7-13 for ity of N NASAL 15:08: migraines [place] SPRY 59 Medical Branch [facility] Apply to [place] 0.1% in 01-28 affected ity o f aquaphor 15:08: area(s). [place] (COMPOUNDED 59 Medical ) ointment Branch ARIPiprazol Yes by Univer s e (ABILIFY 7 Intramuscu ity of [employer]) 15:08: lar route [place] 300 mg sers 59 once every Me dical month. Branch cariprazine Yes 1{capsu Take 1 U nivers (VRAYLAR) 3 7-13 le} capsule by it y of mg Cap 15:08: mouth in [place] 59 the Medical morning Branch and 1 capsule in the evening. IMITREX 5 0 Yes as needed Uni vers MG/ACTUATIO 7-13 for ity of N NASAL 15:08: migraines [place] SPRY 59 Medical Branch triamcinolo Yes Apply to [place] 0.1% in 01-28 affected ity o f aquaphor 15:08: area(s). [place] (COMPOUNDED 59 Medical ) ointment Branch ARIPiprazol Yes by Univer s e (ABILIFY 7 Intramuscu ity of [facility]) 15:08: lar route [place] 300 mg sers 59 once every Me dical month. Branch cariprazine Yes 1{capsu Take 1 U nivers (VRAYLAR) 3 7-13 le} capsule by it y of mg Cap 15:08: mouth in [place] 59 the Medical morning Branch and 1 capsule in the evening. triamcinolo 2022-0 Yes Apply to [place] 0.1% in 01-28 affected ity o f aquaphor 15:08: area(s). [place] (COMPOUNDED 59 Medical ) ointment Branch ARIPiprazol Yes by Univer s e (ABILIFY 01-[address] [facility]) 15:08: lar route [place] 300 mg sers 59 once every Me dical month. Branch cariprazine Yes 1{capsu Take 1 U nivers (VRAYLAR) 3 7- le} capsule by it y of mg Cap 15:08: mouth in [place] 59 the Medical morning Branch and 1 capsule in the evening. triamcinolo 2022- Yes Apply to [place] 0.1% in 01-28 affected ity o f aquaphor 15:08: area(s). [place] (COMPOUNDED 59 Medical ) ointment Branch ARIPiprazol Yes by Univer s e (ABILIFY 01-[address] [facility]) 15:08: lar route [place] 300 mg sers 59 once every Me dical month. Branch cariprazine Yes 1{capsu Take 1 U nivers (VRAYLAR) 3 7- le} capsule by it y of mg Cap 15:08: mouth in [place] 59 the Medical morning Branch and 1 capsule in the evening. triamcinolo Yes Apply to [place] 0.1% in 01-28 affected ity o f aquaphor 15:08: area(s). [place] (COMPOUNDED 59 Medical ) ointment Branch ARIPiprazol Yes by Univer s e (ABILIFY 01-[address] [facility]) 15:08: lar route [place] 300 mg sers 59 once every Me dical month. Branch cariprazine Yes 1{capsu Take 1 U nivers (VRAYLAR) 3 7-13 le} capsule by it y of mg Cap 15:08: mouth in [place] 59 the Medical morning Branch and 1 capsule in the evening. levETIRAcet 0 Yes [id number] 1000mg Take 10 mL Univers am (KEPPRA) 7-13 by mouth ity of 100 mg/mL 00:00: in the [place] oral 00 morning Medical solution and 10 mL Branch in the evening. levETIRAcet 3-0 Yes [id number] 1000mg Take 10 mL Univers am (KEPPRA) 7-13 by mouth ity of 100 mg/mL 00:00: in the [place] oral 00 morning Medical solution and 10 mL Branch in the evening. metoprolol 3-0 Yes [id number] 25mg Take 1 U nivers succinate 7-13 tablet by ity o f XL 25 mg 24 00:00: mouth in [place] hr tablet 00 the Medical morning. Branch levETIRAcet 2022-0 Yes [id number] 1000mg Take 10 mL Univers am (KEPPRA) 7-13 by mouth ity of 100 mg/mL 00:00: in the [place] oral morning Medical solution and 10 mL Branch in the evening. metoprolol 3-0 Yes [id number] 25mg Take 1 U nivers succinate 7-13 tablet by ity o f XL 25 mg 24 00:00: mouth in [place] hr tablet 00 the Medical morning. Branch levETIRAcet 2022-0 Yes [id number] 1000mg Take 10 mL Univers am (KEPPRA) 7-13 by mouth ity of 100 mg/mL 00:00: in the [place] oral morning Medical solution and 10 mL Branch in the evening. metoprolol 3-0 Yes [id number] 25mg Take 1 U nivers succinate 7-13 tablet by ity o f XL 25 mg 24 00:00: mouth in [place] hr tablet 00 the Medical morning. Branch levETIRAcet 3-0 Yes [id number] 1000mg Take 10 mL Univers am (KEPPRA) 7-13 by mouth ity of 100 mg/mL 00:00: in the [place] oral 00 morning Medical solution and 10 mL Branch in the evening. metoprolol 3-0 Yes [id number] 25mg Take 1 U nivers succinate 7-13 tablet by ity o f XL 25 mg 24 00:00: mouth in [place] hr tablet 00 the Medical morning. Branch levETIRAcet 3-0 Yes [id number] 1000mg Take 10 mL Univers am (KEPPRA) 7-13 by mouth ity of 100 mg/mL 00:00: in the [place] oral 00 morning Medical solution and 10 mL Branch in the evening. metoprolol 3-0 Yes [id number] 25mg Take 1 U nivers succinate 7-13 tablet by ity o f XL 25 mg 24 00:00: mouth in [place] hr tablet 00 the Medical morning. Branch levETIRAcet 3-0 Yes [id number] 1000mg Take 10 mL Univers am (KEPPRA) 7-13 by mouth ity of 100 mg/mL 00:00: in the [place] oral 00 morning Medical solution and 10 mL Branch in the evening. metoprolol 3-0 Yes [id number] 25mg Take 1 U nivers succinate 7-13 tablet by ity o f XL 25 mg 24 00:00: mouth in [place] hr tablet 00 the Medical morning. Branch levETIRAcet 3-0 Yes [id number] 1000mg Take 10 mL Univers am (KEPPRA) 7-13 by mouth ity of 100 mg/mL 00:00: in the [place] oral 00 morning Medical solution and 10 mL Branch in the evening. metoprolol 3-0 Yes [id number] 25mg Take 1 U nivers succinate 7-13 tablet by ity o f XL 25 mg 24 00:00: mouth in [place] hr tablet 00 the Medical morning. Branch levETIRAcet 3-0 Yes [id number] 1000mg Take 10 mL Univers am (KEPPRA) 7-13 by mouth ity of 100 mg/mL 00:00: in the [place] oral 00 morning Medical solution and 10 mL Branch in the evening. metoprolol 3-0 Yes [id number] 25mg Take 1 U nivers succinate 7-13 tablet by ity o f XL 25 mg 24 00:00: mouth in [place] hr tablet 00 the Medical morning. Branch levETIRAcet 3-0 Yes [id number] 1000mg Take 10 mL Univers am (KEPPRA) 7-13 by mouth ity of 100 mg/mL 00:00: in the [place] oral 00 morning Medical solution and 10 mL Branch in the evening. metoprolol 2023-0 Yes [id number] 25mg Take 1 U nivers succinate 7-13 tablet by ity o f XL 25 mg 24 00:00: mouth in [place] hr tablet 00 the Medical morning. Branch levETIRAcet 3-0 Yes [id number] 1000mg Take 10 mL Univers am (KEPPRA) 7-13 by mouth ity of 100 mg/mL 00:00: in the [place] oral 00 morning Medical solution and 10 mL Branch in the evening. metoprolol 2022-0 Yes [id number] 25mg Take 1 U nivers succinate 7-13 tablet by ity o f XL 25 mg 24 00:00: mouth in [place] hr tablet 00 the Medical morning. Branch levETIRAcet 3-0 Yes [id number] 1000mg Take 10 mL Univers am (KEPPRA) 7-13 by mouth ity of 100 mg/mL 00:00: in the [place] oral 00 morning Medical solution and 10 mL Branch in the evening. metoprolol 2022-0 Yes [id number] 25mg Take 1 U nivers succinate 7-13 tablet by ity o f XL 25 mg 24 00:00: mouth in [place] hr tablet 00 the Medical morning. Branch levETIRAcet 2022-0 Yes [id number] 1000mg Take 10 mL Univers am (KEPPRA) 7-13 by mouth ity of 100 mg/mL 00:00: in the [place] oral 00 morning Medical solution and 10 mL Branch in the evening. metoprolol 2022-0 Yes [id number] 25mg Take 1 U nivers succinate 7-13 tablet by ity o f XL 25 mg 24 00:00: mouth in [place] hr tablet 00 the Medical morning. Branch levETIRAcet 3-0 Yes [id number] 1000mg Take 10 mL Univers am (KEPPRA) 7-13 by mouth ity of 100 mg/mL 00:00: in the [place] oral 00 morning Medical solution and 10 mL Branch in the evening. metoprolol 3-0 Yes [id number] 25mg Take 1 U nivers succinate 7-13 tablet by ity o f XL 25 mg 24 00:00: mouth in [place] hr tablet 00 the Medical morning. Branch levETIRAcet 3-0 Yes [id number] 1000mg Take 10 mL Univers am (KEPPRA) 7-13 by mouth ity of 100 mg/mL 00:00: in the [place] oral 00 morning Medical solution and 10 mL Branch in the evening. metoprolol 2022-0 Yes [id number] 25mg Take 1 U nivers succinate 7-13 tablet by ity o f XL 25 mg 24 00:00: mouth in [place] hr tablet 00 the Medical morning. Branch levETIRAcet 2022-0 Yes [id number] 1000mg Take 10 mL Univers am (KEPPRA) 7-13 by mouth ity of 100 mg/mL 00:00: in the [place] oral 00 morning Medical solution and 10 mL Branch in the evening. metoprolol 2022-0 Yes [id number] 25mg Take 1 U nivers succinate 7-13 tablet by ity o f XL 25 mg 24 00:00: mouth in [place] hr tablet 00 the Medical morning. Branch levETIRAcet 2022-0 Yes [id number] 1000mg Take 10 mL Univers am (KEPPRA) 7-13 by mouth ity of 100 mg/mL 00:00: in the [place] oral 00 morning Medical solution and 10 mL Branch in the evening. metoprolol 2022-0 Yes [id number] 25mg Take 1 U nivers succinate 7-13 tablet by ity o f XL 25 mg 24 00:00: mouth in [place] hr tablet 00 the Medical morning. Branch levETIRAcet 2022-0 Yes [id number] 1000mg Take 10 mL Univers am (KEPPRA) 7-13 by mouth ity of 100 mg/mL 00:00: in the [place] oral 00 morning Medical solution and 10 mL Branch in the evening. metoprolol 2022-0 Yes [id number] 25mg Take 1 U nivers succinate 7-13 tablet by ity o f XL 25 mg 24 00:00: mouth in [place] hr tablet 00 the Medical morning. Branch levETIRAcet 2022-0 Yes [id number] 1000mg Take 10 mL Univers am (KEPPRA) 7-13 by mouth ity of 100 mg/mL 00:00: in the [place] oral 00 morning Medical solution and 10 mL Branch in the evening. metoprolol 2022-0 Yes [id number] 25mg Take 1 U nivers succinate 7-13 tablet by ity o f XL 25 mg 24 00:00: mouth in [place] hr tablet 00 the Medical morning. Branch levETIRAcet 2022-0 Yes [id number] 1000mg Take 10 mL Univers am (KEPPRA) 7-13 by mouth ity of 100 mg/mL 00:00: in the [place] oral 00 morning Medical solution and 10 mL Branch in the evening. metoprolol 3-0 Yes [id number] 25mg Take 1 U nivers succinate 7-13 tablet by ity o f XL 25 mg 24 00:00: mouth in [place] hr tablet 00 the Medical morning. Branch levETIRAcet 3-0 Yes [id number] 1000mg Take 10 mL Univers am (KEPPRA) 7-13 by mouth ity of 100 mg/mL 00:00: in the [place] oral 00 morning Medical solution and 10 mL Branch in the evening. metoprolol 3-0 Yes [id number] 25mg Take 1 U nivers succinate 7-13 tablet by ity o f XL 25 mg 24 00:00: mouth in [place] hr tablet 00 the Medical morning. Branch levETIRAcet 3-0 Yes [id number] 1000mg Take 10 mL Univers am (KEPPRA) 7-13 by mouth ity of 100 mg/mL 00:00: in the [place] oral 00 morning Medical solution and 10 mL Branch in the evening. metoprolol 3-0 Yes [id number] 25mg Take 1 U nivers succinate 7-13 tablet by ity o f XL 25 mg 24 00:00: mouth in [place] hr tablet 00 the Medical morning. Branch levETIRAcet 2022-0 Yes [id number] 1000mg Take 10 mL Univers am (KEPPRA) 7-13 by mouth ity of 100 mg/mL 00:00: in the [place] oral 00 morning Medical solution and 10 mL Branch in the evening. metoprolol 3-0 Yes [id number] 25mg Take 1 U nivers succinate 7-13 tablet by ity o f XL 25 mg 24 00:00: mouth in [place] hr tablet 00 the Medical morning. Branch levETIRAcet 3-0 Yes [id number] 1000mg Take 10 mL Univers am (KEPPRA) 7-13 by mouth ity of 100 mg/mL 00:00: in the [place] oral 00 morning Medical solution and 10 mL Branch in the evening. metoprolol 3-0 Yes [id number] 25mg Take 1 U nivers succinate 7-13 tablet by ity o f XL 25 mg 24 00:00: mouth in [place] hr tablet 00 the Medical morning. Branch levETIRAcet 3-0 Yes [id number] 1000mg Take 10 mL Univers am (KEPPRA) 7-13 by mouth ity of 100 mg/mL 00:00: in the [place] oral 00 morning Medical solution and 10 mL Branch in the evening. metoprolol 3-0 Yes [id number] 25mg Take 1 U nivers succinate 7-13 tablet by ity o f XL 25 mg 24 00:00: mouth in [place] hr tablet 00 the Medical morning. Branch levETIRAcet 3-0 Yes [id number] 1000mg Take 10 mL Univers am (KEPPRA) 7-13 by mouth ity of 100 mg/mL 00:00: in the [place] oral 00 morning Medical solution and 10 mL Branch in the evening. metoprolol 3-0 Yes [id number] 25mg Take 1 U nivers succinate 7-13 tablet by ity o f XL 25 mg 24 00:00: mouth in [place] hr tablet 00 the Medical morning. Branch levETIRAcet 3-0 Yes [id number] 1000mg Take 10 mL Univers am (KEPPRA) 7-13 by mouth ity of 100 mg/mL 00:00: in the [place] oral 00 morning Medical solution and 10 mL Branch in the evening. metoprolol 3-0 Yes [id number] 25mg Take 1 U nivers succinate 7-13 tablet by ity o f XL 25 mg 24 00:00: mouth in [place] hr tablet 00 the Medical morning. Branch levETIRAcet 3-0 Yes [id number] 1000mg Take 10 mL Univers am (KEPPRA) 7-13 by mouth ity of 100 mg/mL 00:00: in the [place] oral 00 morning Medical solution and 10 mL Branch in the evening. metoprolol 3-0 Yes [id number] 25mg Take 1 U nivers succinate 7-13 tablet by ity o f XL 25 mg 24 00:00: mouth in [place] hr tablet 00 the Medical morning. Branch levETIRAcet 3-0 Yes [id number] 1000mg Take 10 mL Univers am (KEPPRA) 7-13 by mouth ity of 100 mg/mL 00:00: in the [place] oral 00 morning Medical solution and 10 mL Branch in the evening. metoprolol 3-0 Yes [id number] 25mg Take 1 U nivers succinate 7-13 tablet by ity o f XL 25 mg 24 00:00: mouth in [place] hr tablet 00 the Medical morning. Branch levETIRAcet 2022-0 Yes [id number] 1000mg Take 10 mL Univers am (KEPPRA) 7-13 by mouth ity of 100 mg/mL 00:00: in the [place] oral 00 morning Medical solution and 10 mL Branch in the evening. metoprolol 2022-0 Yes [id number] 25mg Take 1 U nivers succinate 7-13 tablet by ity o f XL 25 mg 24 00:00: mouth in [place] hr tablet 00 the Medical morning. Branch levETIRAcet 2022-0 Yes [id number] 1000mg Take 10 mL Univers am (KEPPRA) 7-13 by mouth ity of 100 mg/mL 00:00: in the [place] oral 00 morning Medical solution and 10 mL Branch in the evening. metoprolol 2022-0 Yes [id number] 25mg Take 1 U nivers succinate 7-13 tablet by ity o f XL 25 mg 24 00:00: mouth in [place] hr tablet 00 the Medical morning. Branch levETIRAcet 2022-0 Yes [id number] 1000mg Take 10 mL Univers am (KEPPRA) 7-13 by mouth ity of 100 mg/mL 00:00: in the [place] oral 00 morning Medical solution and 10 mL Branch in the evening. metoprolol 2022-0 Yes [id number] 25mg Take 1 U nivers succinate 7-13 tablet by ity o f XL 25 mg 24 00:00: mouth in [place] hr tablet 00 the Medical morning. Branch levETIRAcet 3-0 Yes [id number] 1000mg Take 10 mL Univers am (KEPPRA) 7-13 by mouth ity of 100 mg/mL 00:00: in the [place] oral 00 morning Medical solution and 10 mL Branch in the evening. metoprolol 3-0 Yes [id number] 25mg Take 1 U nivers succinate 7-13 tablet by ity o f XL 25 mg 24 00:00: mouth in [place] hr tablet 00 the Medical morning. Branch levETIRAcet 3-0 Yes [id number] 1000mg Take 10 mL Univers am (KEPPRA) 7-13 by mouth ity of 100 mg/mL 00:00: in the [place] oral 00 morning Medical solution and 10 mL Branch in the evening. metoprolol 3-0 Yes [id number] 25mg Take 1 U nivers succinate 7-13 tablet by ity o f XL 25 mg 24 00:00: mouth in [place] hr tablet 00 the Medical morning. Branch levETIRAcet 2022-0 Yes [id number] 1000mg Take 10 mL [facility] am (KEPPRA) 7-13 by mouth ity of 100 mg/mL 00:00: in the [place] oral 00 morning Medical solution and 10 mL Branch in the evening. metoprolol 2022-0 Yes [id number] 25mg Take 1 U nivers succinate 7-13 tablet by ity o f XL 25 mg 24 00:00: mouth in [place] hr tablet 00 the Medical morning. Branch levETIRAcet 2022-0 Yes [id number] 1000mg Take 10 mL Univers am (KEPPRA) 7-13 by mouth ity of 100 mg/mL 00:00: in the [place] oral 00 morning Medical solution and 10 mL Branch in the evening. metoprolol 2022-0 Yes [id number] 25mg Take 1 U nivers succinate 7-13 tablet by ity o f XL 25 mg 24 00:00: mouth in [place] hr tablet 00 the Medical morning. Branch levETIRAcet 2022-0 Yes [id number] 1000mg Take 10 mL [facility] am (KEPPRA) 7-13 by mouth ity of 100 mg/mL 00:00: in the [place] oral 00 morning Medical solution and 10 mL Branch in the evening. metoprolol 2022-0 Yes [id number] 25mg Take 1 U nivers succinate 7-13 tablet by ity o f XL 25 mg 24 00:00: mouth in [place] hr tablet 00 the Medical morning. Branch levETIRAcet 2022-0 Yes [id number] 1000mg Take 10 mL [facility] am (KEPPRA) 7-13 by mouth ity of 100 mg/mL 00:00: in the [place] oral 00 morning Medical solution and 10 mL Branch in the evening. metoprolol 3-0 Yes [id number] 25mg Take 1 U nivers succinate 7-13 tablet by ity o f XL 25 mg 24 00:00: mouth in [place] hr tablet 00 the Medical morning. Branch levETIRAcet 3-0 Yes [id number] 1000mg Take 10 mL [facility] am (KEPPRA) 7-13 by mouth ity of 100 mg/mL 00:00: in the [place] oral 00 morning Medical solution and 10 mL Branch in the evening. metoprolol 2022-0 Yes [id number] 25mg Take 1 U nivers succinate 7-13 tablet by ity o f XL 25 mg 24 00:00: mouth in [place] hr tablet 00 the Medical morning. Branch levETIRAcet 2022-0 Yes [id number] 1000mg Take 10 mL [facility] am (KEPPRA) 7-13 by mouth ity of 100 mg/mL 00:00: in the [place] oral 00 morning Medical solution and 10 mL Branch in the evening. metoprolol 2022-0 Yes [id number] 25mg Take 1 U nivers succinate 7-13 tablet by ity o f XL 25 mg 24 00:00: mouth in [place] hr tablet 00 the Medical morning. Branch levETIRAcet 2022-0 Yes [id number] 1000mg Take 10 mL [facility] am (KEPPRA) 7-13 by mouth ity of 100 mg/mL 00:00: in the [place] oral 00 morning Medical solution and 10 mL Branch in the evening. metoprolol 2022-0 Yes [id number] 25mg Take 1 U nivers succinate 7-13 tablet by ity o f XL 25 mg 24 00:00: mouth in [place] hr tablet 00 the Medical morning. Branch levETIRAcet 3-0 Yes [id number] 1000mg Take 10 mL [facility] am (KEPPRA) 7-13 by mouth ity of 100 mg/mL 00:00: in the [place] oral 00 morning Medical solution and 10 mL Branch in the evening. metoprolol 3-0 Yes [id number] 25mg Take 1 U nivers succinate 7-13 tablet by ity o f XL 25 mg 24 00:00: mouth in [place] hr tablet 00 the Medical morning. Branch levETIRAcet 3-0 Yes [id number] 1000mg Take 10 mL Univers am (KEPPRA) 7-13 by mouth ity of 100 mg/mL 00:00: in the [place] [address] morning Medical solution and 10 mL Branch in the evening. metoprolol 2022-0 Yes [id number] 25mg Take 1 U nivers succinate 7-13 tablet by ity o f XL 25 mg 24 00:00: mouth in [place] hr tablet 00 the Medical morning. Branch levETIRAcet 2022-0 Yes [id number] 1000mg Take 10 mL Univers am (KEPPRA) 7-13 by mouth ity of 100 mg/mL 00:00: in the [place] [address] morning Medical solution and 10 mL Branch in the evening. metoprolol 2022-0 Yes [id number] 25mg Take 1 U nivers succinate 7-13 tablet by ity o f XL 25 mg 24 00:00: mouth in [place] hr tablet 00 the Medical morning. Branch levETIRAcet 2022-0 Yes [id number] 1000mg Take 10 mL [facility] am (KEPPRA) 7-13 by mouth ity of 100 mg/mL 00:00: in the [place] [address] morning Medical solution and 10 mL Branch in the evening. metoprolol 2022-0 Yes [id number] 25mg Take 1 U nivers succinate 7-13 tablet by ity o f XL 25 mg 24 00:00: mouth in [place] hr tablet 00 the Medical morning. Branch levETIRAcet 2022-0 Yes [id number] 1000mg Take 10 mL [facility] am (KEPPRA) 7-13 by mouth ity of 100 mg/mL 00:00: in the [place] [address] morning Medical solution and 10 mL Branch in the evening. metoprolol 2022-0 Yes [id number] 25mg Take 1 U nivers succinate 7-13 tablet by ity o f XL 25 mg 24 00:00: mouth [place] hr tablet 00 the Medical morning. Branch ketorolac 2022- No 60mg 60 mg, Unive rs (TORADOL) 01-21 Intramuscu ity of injection 04:00: 03:39 lar, ONCE, [place] 60 mg 00 :00 1 dose, On Wed01/20/23 Branch at 2300, THIERRY HYDROcodone 2022-0 2022- No 1{tbl} 1 tablet, Univers -acetaminop 01-18 Oral, ity of hen (NORCO 15:00: 17:33 ONCE, 1 [place] 5) 5-325 mg 00 :00 dose, On Medi cherie tablet 1 Wed01/18/23 Branc h tablet at 1000, Routine, PACU HYDROcodone 3-0 2023- No 1{tbl} 1 tablet, [facility] -acetaminop [...] A SERVICE-HY DROMORPHON E INJECTIONS FENTanyl PF 0 Yes 25ug 25 mcg, Uni vers (SUBLIMAZE [...] on Wed01/18/23 at 0956, Until Wed01/18/23 at 151, Routine, Nausea and Vomiting (N/V), PACU IMITREX 5 Yes as needed Uni vers MG/ACTUATIO 01-18 for ity of N NASAL 13:17: migraines [facility] Medical Branch [facility] Yes Apply to Un [place] 0.1% in 01-18 affected ity o f aquaphor 13:17: area(s). [place] (COMPOUND[facility] Medical ) ointment Branch ARIPiprazol Yes by Univer s e (ABILIFY 01-18 Intramuscu ity of MA[facility]TENA) 13:17: lar route [place] 300 mg sers once every Me dical month. Branch cariprazine Yes 1{capsu Take 1 U nivers (VRAYLAR) 3 01-18 le} capsule by it y of mg Cap 13:17: mouth in [place] the Medical morning Branch and 1 capsule in the evening. IMITREX 5 Yes as needed Uni vers MG/ACTUATIO 01-18 for ity of N NASAL 13:17: migraines [facility] Yes Apply to Un [place] 0.1% in 01-18 affected ity o f aquaphor 13:17: area(s). [place] (COMPOUND[facility] Medical ) ointment Branch ARIPiprazol Yes by Univer s e (ABILIFY 01-18 Intramuscu ity of [place]TE[place]) 13:17: lar route [place] 300 mg sers 01 once every Me dical month. Branch cariprazine Yes 1{capsu Take 1 U nivers (VRAYLAR) 3 7- le} capsule by it y of mg Cap 13:17: mouth in [place] the Medical morning Branch and 1 capsule in the evening. IMITREX 5 Yes as needed Uni vers MG/ACTUATIO 7 for ity of N NASAL 13:17: migraines [address] Yes Apply to Un [place] 0.1% in 01-18 affected ity o f aquaphor 13:17: area(s). [place] (COMPOUNDED Medical ) ointment Branch ARIPiprazol Yes by Univer s e (ABILIFY 01-18 [facility]cu [facility]y [facility] 13:17: lar route [place] 300 mg sers 01 once every Me dical month. Branch cariprazine Yes 1{capsu Take 1 U nivers (VRAYLAR) 3 7- le} capsule by it y of mg Cap 13:17: mouth in [place] [address] the Medical morning Branch and 1 capsule in the evening. IMITREX 5 Yes as needed Uni vers MG/ACTUATIO 01-18 for ity of N NASAL 13:17[facility] [address] [place] [address] Yes Apply to Un glen ne 0.1% in 01-18 affected ity o f aquaphor 13:17: area(s). [place] (COMPOUND[facility] Medical ) ointment Branch ARIPiprazol Yes by Univer s e (ABILIFY 01-18 [facility]cu [facility] 13:17: lar route [place] 300 mg sers 01 once every Me dical month. Branch cariprazine Yes 1{capsu Take 1 U nivers (VRAYLAR) 3 7-03 le} capsule by it y of mg Cap 13:17: mouth in [place] the Medical morning Branch and 1 capsule in the evening. IMITREX 5 Yes as needed Uni vers MG/ACTUATIO 7 for ity of N NASAL 13:17: [facility] Yes Apply to Un [place] 0.1% in 01-18 affected ity o f aquaphor 13:17: area(s). [place] (COMPOUND[facility] Medical ) ointment Branch ARIPiprazol Yes by Univer s e (ABILIFY 01-18 Intramuscu ity of [place]TE[place]) 13:17: lar route [place] 300 mg sers 01 once every Me dical month. Branch cariprazine Yes 1{capsu Take 1 U nivers (VRAYLAR) 3 01-18 le} capsule by it y of mg Cap 13:17: mouth in [place] the Medical morning Branch and 1 capsule in the evening. IMITREX 5 Yes as needed Uni vers MG/ACTUATIO 01-18 for ity of N NASAL 13:17: migraines [facility] Medical Branch [facility] Yes Apply to Un [place] 0.1% in 01-18 affected ity o f aquaphor 13:17: area(s). [place] (COMPOUNDED Medical ) ointment Branch ARIPiprazol Yes by Univer s e (ABILIFY 01-18 Intramuscu ity of MA[place]TENA) 13:17: lar route [place] 300 mg sers 01 once every Me dical month. Branch IMITREX 5 Yes as needed Uni vers MG/ACTUATIO 01-18 for ity of N NASAL 13:17: [facility] Yes Apply to Un [place] 0.1% in 01-18 affected ity o f aquaphor 13:17: area(s). [place] (COMPOUNDED Medical ) ointment Branch ARIPiprazol Yes by Univer s e (ABILIFY 01-18 Intramuscu ity of MA[place]TENA) 13:17: lar route [place] 300 mg sers 01 once every Me dical month. Branch cariprazine Yes 1{capsu Take 1 U nivers (VRAYLAR) 3 7- le} capsule by it y of mg Cap 13:17: mouth in [place] the Medical morning Branch and 1 capsule in the evening. IMITREX 5 Yes as needed Uni vers MG/ACTUATIO 01-18 for ity of N NASAL 13:17: migraines [place] SPRY 01 Medical Branch triamcinolo Yes Apply to Un [place] 0.1% in 01-18 affected ity o f aquaphor 13:17: area(s). [place] (COMPOUNDED Medical ) ointment Branch ARIPiprazol Yes by Univbritney s e (ABILIFY 01-18 Intramuscu ity [facility]) 13:17: lar route [place] 300 mg sers 01 once every Me dical month. Branch cariprazine Yes 1{capsu Take 1 U nivers (VRAYLAR) 3 7 le} capsule by it y of mg Cap 13:17: mouth in [place] the Medical morning Branch and 1 capsule [...] for ity of N NASAL 12:08: migraines [address] Yes Apply to Un [place] 0.1% in - affected ity o f aquaphor 12:08: area(s). [place] ([address] ) ointment Branch ARIPiprazol Yes by Univer s e (ABILIFY 01-[address] [facility]) 12:08: lar route [place] 300 mg sers 17 once every Me dical month. Branch cariprazine Yes 1{capsu Take 1 U nivers (VRAYLAR) 3 01-14 le} capsule by it y of mg Cap 12:08: mouth in [place] [address] the Medical morning Branch and 1 capsule in the evening. IMITREX 5 Yes as needed Uni vers MG/ACTUATIO 6- for ity of N NASAL 12:08: migraines [address] Yes Apply to Un [place] 0.1% in 01-14 affected ity o f aquaphor 12:08: area(s). [place] ([place] [address] Medical ) ointment Branch ARIPiprazol Yes by [employer] s e (ABILIFY 01-[address] [facility]) 12:08: lar route [place] 300 mg sers 17 once every Me dical month. Branch cariprazine Yes 1{capsu Take 1 U nivers (VRAYLAR) 3 -29 le} capsule by it y of mg Cap 12:08: mouth in [place] [address] the Medical morning Branch and 1 capsule in the evening. IMITREX 5 Yes as needed Uni vers MG/ACTUATIO 6-29 for ity of N NASAL 12:08: migraines [address] Yes Apply to [place] 0.1% in 01-14 affected ity o f aquaphor 12:08: area(s). [place] (COMPOUNDED Medical ) ointment Branch ARIPiprazol 0 Yes by Univer s e (ABILIFY 6-[address] [facility]) 12:08: lar route [place] 300 mg [...] [place] 00 needed. Medical Branch traMADoL 50 2023-0 Yes 50mg Take 1 Univ ers mg [...] 00 needed. Medical Branch traMADoL 50 2022-0 2023- No 50mg Take 1 Uni vers mg tablet 6-23 08-08 tablet by ity of 00:00: 00:00 mouth as [place] 00 :00 needed. Medical Branch traMADoL 50 2022-0 3- No 50mg Take 1 Uni vers mg tablet 6-23 08-08 tablet by ity of 00:00: 00:00 mouth as [place] 00 :00 needed. Medical Branch traMADoL 50 2022-0 3- No 50mg Take 1 Uni vers mg tablet 6-23 08-08 tablet by ity of 00:00: 00:00 mouth as [place] 00 :00 needed. Medical Branch traMADoL 50 2022-0 3- No 50mg Take 1 Uni vers mg [...] it y of cream 00:00: to area(s) [place] as needed. Medical Branch nystatin Yes 1{dose} Apply 1 Uni vers 100,000 6-16 Dose to ity of unit/gram 00:00: [place] cream the morning. Branch terbinafine Yes 1{dose} Apply 1 [facility] HCL 1 % 6-16 Dose to ity of cream 00:00: area(s) in [place] 00 the Medical morning. Branch hydrocortis 2023-0 Yes 1{appli Apply 1 Univers one 2.5 % 6-16 cator} Applicator it y of cream 00:00: to area(s) [place] [address] as needed. Medical Branch nystatin 2022-0 Yes 1{dose} Apply 1 Uni vers 100,000 6-16 Dose to ity of unit/gram 00:00: [place](s[place] cream 00 the Medical morning. Branch terbinafine 2022-0 Yes 1{dose} Apply 1 Univers HCL 1 % 6-16 Dose to ity of cream 00:00: area(s) in [place] 00 the Medical morning. Branch hydrocortis 2022-0 Yes 1{appli Apply 1 [facility] one 2.5 % 6-16 cator} Applicator it y of cream 00:00: to area(s) [place] [address] as needed. Medical Branch nystatin 2022- Yes 1{dose} Apply 1 Uni vers 100,000 6-16 Dose to ity of unit/gram 00:00: area(s) in [facility] cream 00 the Medical morning. Branch terbinafine 2022-0 Yes 1{dose} Apply 1 Univers HCL 1 % 6-16 Dose to ity of cream 00:00: area(s) in [place] 00 the Medical morning. Branch hydrocortis 2022-0 Yes 1{appli Apply 1 [facility] one 2.5 % 6-16 cator} Applicator it y of cream 00:00: to area(s) [place] [address] as needed. Medical Branch nystatin 2022-0 Yes 1{dose} Apply 1 Uni vers 100,000 6-16 Dose to ity of unit/gram 00:00: [place] cream 00 the Medical morning. Branch terbinafine 2022-0 Yes 1{dose} Apply 1 [facility] HCL 1 % 6-16 Dose to ity of cream 00:00: area(s) in [place] 00 the Medical morning. Branch hydrocortis 2022-0 Yes 1{appli Apply 1 [facility] one 2.5 % 6-16 cator} Applicator it y of cream 00:00: to area(s) [place] [address] as needed. Medical Branch nystatin 2022-0 Yes 1{dose} Apply 1 Uni vers 100,000 6-16 Dose to ity of unit/gram 00:00: area(s[place] in [place] cream 00 the Medical morning. Branch terbinafine 2022-0 Yes 1{dose} Apply 1 Univers HCL 1 % 6-16 Dose to ity of cream 00:00: area(s) in [place] 00 the Medical morning. Branch hydrocortis 2022-0 Yes 1{appli Apply 1 Univers one 2.5 % 6-16 cator} Applicator it y of cream 00:00: to area(s) [place] [address] as needed. Medical Branch nystatin 2022-0 Yes 1{dose} Apply 1 Uni vers 100,000 6-16 Dose to ity of unit/gram 00:00: area(s[place] in [place] cream 00 the Medical morning. Branch terbinafine 2022-0 Yes 1{dose} Apply 1 Univers HCL 1 % 6-16 Dose to ity of cream 00:00: area(s) in [place] 00 the Medical morning. Branch hydrocortis 2022-0 Yes 1{appli Apply 1 Univers one 2.5 % 6-16 cator} Applicator it y of cream 00:00: to area(s) [place] [address] as needed. Medical Branch nystatin 2022-0 Yes 1{dose} Apply 1 Uni vers 100,000 6-16 Dose to ity of unit/gram 00:00: area(s[place] in [place] cream 00 the Medical morning. Branch terbinafine 2022-0 Yes 1{dose} Apply 1 Univers HCL 1 % 6-16 Dose to ity of cream 00:00: area(s) in [place] 00 the Medical morning. Branch hydrocortis 2022-0 Yes 1{appli Apply 1 Univers one 2.5 % 6-16 cator} Applicator it y of cream 00:00: to area(s) [place] [address] as needed. Medical Branch nystatin 2022-0 Yes 1{dose} Apply 1 Uni vers 100,000 6-16 Dose to ity of unit/gram 00:00: area(s[place] in [place] cream 00 the Medical morning. Branch terbinafine 2022-0 Yes 1{dose} Apply 1 Univers HCL 1 % 6-16 Dose to ity of cream 00:00: area(s) in [place] 00 the Medical morning. Branch hydrocortis 2022-0 Yes 1{appli Apply 1 Univers one 2.5 % 6-16 cator} Applicator it y of cream 00:00: to area(s) [place] [address] as needed. Medical Branch nystatin 3-0 Yes 1{dose} Apply 1 Uni vers 100,000 6-16 Dose to ity of unit/gram 00:00: [place] cream 00 the Medical morning. Branch terbinafine 2022-0 Yes 1{dose} Apply 1 Univers HCL 1 % 6-16 Dose to ity of cream 00:00: area(s) in [place] 00 the Medical morning. Branch hydrocortis 2022-0 Yes 1{appli Apply 1 [facility] one 2.5 % 6-16 cator} Applicator it y of cream 00:00: to area(s) [place] [address] as needed. Medical Branch nystatin 2022-0 Yes 1{dose} Apply 1 Uni vers 100,000 6-16 Dose to ity of unit/gram 00:00: area(s) in [facility] cream 00 the Medical morning. Branch terbinafine 2022-0 Yes 1{dose} Apply 1 Univers HCL 1 % 6-16 Dose to ity of cream 00:00: area(s) in [place] 00 the Medical morning. Branch hydrocortis 2022-0 Yes 1{appli Apply 1 Univers one 2.5 % 6-16 cator} Applicator it y of cream 00:00: to area(s) [place] [address] as needed. Medical Branch nystatin 2022-0 Yes 1{dose} Apply 1 Uni vers 100,000 6-16 Dose to ity of unit/gram 00:00: area(s) in [facility] cream 00 the Medical morning. Branch terbinafine 2022-0 Yes 1{dose} Apply 1 Univers HCL 1 % 6-16 Dose to ity of cream 00:00: area(s) in [place] 00 the Medical morning. Branch hydrocortis 3-0 Yes 1{appli Apply 1 Univers one 2.5 % 6-16 cator} Applicator it y of cream 00:00: to area(s) [place] [address] as needed. Medical Branch nystatin 2022-0 Yes 1{dose} Apply 1 Uni vers 100,000 6-16 Dose to ity of unit/gram 00:00: area(s) in [facility] cream 00 the Medical morning. Branch [...] it y of cream 00:00: to area(s) [place] 00 as needed. Medical Branch nystatin 2022-0 [...] it y of cream 00:00: to area(s) [place] 00 as needed. Medical Branch nystatin 2022-0 [...] [place] 00 as needed. Medical Branch nystatin 2023-0 Yes 1{dose} Apply 1 Uni vers 100,000 6-16 Dose to ity of unit/gram 00:00: area(s[place] in [place] cream 00 the Medical morning. Branch terbinafine 2022-0 Yes 1{dose} Apply 1 Univers HCL 1 % 6-16 Dose to ity of cream 00:00: area(s) in [place] 00 the Medical morning. Branch hydrocortis 2022-0 Yes 1{appli Apply 1 Univers one 2.5 % 6-16 cator} Applicator it y of cream 00:00: to area(s) [place] [address] as needed. Medical Branch nystatin 2022-0 Yes 1{dose} Apply 1 Uni vers 100,000 6-16 Dose to ity of unit/gram 00:00: area[place] cream 00 the Medical morning. Branch terbinafine 2022-0 Yes 1{dose} Apply 1 Univers HCL 1 % 6-16 Dose to ity of cream 00:00: area(s) in [place] 00 the Medical morning. Branch hydrocortis 2022-0 Yes 1{appli Apply 1 Univers one 2.5 % 6-16 cator} Applicator it y of cream 00:00: to area(s) [place] [address] as needed. Medical Branch nystatin 2022-0 Yes 1{dose} Apply 1 Uni vers 100,000 6-16 Dose to ity of unit/gram 00:00: area[place] cream 00 the Medical morning. Branch terbinafine 2022-0 Yes 1{dose} Apply 1 Univers HCL 1 % 6-16 Dose to ity of cream 00:00: area(s) in [place] 00 the Medical morning. Branch hydrocortis 2022-0 Yes 1{appli Apply 1 Univers one 2.5 % 6-16 cator} Applicator it y of cream 00:00: to area(s) [place] [address] as needed. Medical Branch nystatin 2022-0 Yes 1{dose} Apply 1 Uni vers 100,000 6-16 Dose to ity of unit/gram 00:00: area(s[place] in [place] cream 00 the Medical morning. Branch terbinafine 2022-0 Yes 1{dose} Apply 1 Univers HCL 1 % 6-16 Dose to ity of cream 00:00: area(s) in [place] 00 the Medical morning. Branch hydrocortis 2022-0 Yes 1{appli Apply 1 Univers one 2.5 % 6-16 cator} Applicator it y of cream 00:00: to area(s) [place] [address] as needed. Medical Branch nystatin 2022-0 Yes 1{dose} Apply 1 Uni vers 100,000 6-16 Dose to ity of unit/gram 00:00: [place](s[place] cream 00 the Medical morning. Branch terbinafine 2022-0 Yes 1{dose} Apply 1 Univers HCL 1 % 6-16 Dose to ity of cream 00:00: area(s) in [place] 00 the Medical morning. Branch hydrocortis 2022-0 Yes 1{appli Apply 1 Univers one 2.5 % 6-16 cator} Applicator it y of cream 00:00: to area(s) [place] [address] as needed. Medical Branch nystatin 2022-0 Yes 1{dose} Apply 1 Uni vers 100,000 6-16 Dose to ity of unit/gram 00:00: area(s) in [facility] cream 00 the Medical morning. Branch terbinafine 2022-0 Yes 1{dose} Apply 1 Univers HCL 1 % 6-16 Dose to ity of cream 00:00: area(s) in [place] 00 the Medical morning. Branch hydrocortis 2022-0 Yes 1{appli Apply 1 Univers one 2.5 % 6-16 cator} Applicator it y of cream 00:00: to area(s) [place] [address] as needed. Medical Branch nystatin 2022-0 Yes 1{dose} Apply 1 Uni vers 100,000 6-16 Dose to ity of unit/gram 00:00: area(s) in [facility] cream 00 the Medical morning. Branch terbinafine 2022-0 Yes 1{dose} Apply 1 Univers HCL 1 % 6-16 Dose to ity of cream 00:00: area(s) in [place] 00 the Medical morning. Branch hydrocortis 2022-0 Yes 1{appli Apply 1 Univers one 2.5 % 6-16 cator} Applicator it y of cream 00:00: to area(s) [place] [address] as needed. Medical Branch nystatin 2022-0 Yes 1{dose} Apply 1 Uni vers 100,000 6-16 Dose to ity of unit/gram 00:00: area(s[place] in [place] cream 00 the Medical morning. Branch terbinafine 3-0 Yes 1{dose} Apply 1 [facility] HCL 1 % 6-16 Dose to ity of cream 00:00: area(s) in [place] 00 the Medical morning. Branch hydrocortis 2022-0 Yes 1{appli Apply 1 Univers one 2.5 % 6-16 cator} Applicator it y of cream 00:00: to area(s) [place] 00 as needed. Medical Branch nystatin 3-0 Yes 1{dose} Apply 1 Uni vers 100,000 6-16 Dose to ity of unit/gram 00:00: area(s) in [place] cream 00 the Medical morning. Branch terbinafine 2022-0 Yes 1{dose} Apply 1 Univers HCL 1 % 6-16 Dose to ity of cream 00:00: area(s) in [place] 00 the Medical morning. Branch hydrocortis 2022-0 Yes 1{appli Apply 1 Univers one 2.5 % 6-16 cator} Applicator it y of cream 00:00: to area(s) [place] [address] as needed. Medical Branch nystatin 2022-0 Yes 1{dose} Apply 1 Uni vers 100,000 6-16 Dose to ity of unit/gram 00:00: area(s) in [place] cream 00 the Medical morning. Branch terbinafine 2022-0 Yes 1{dose} Apply 1 Univers HCL 1 % 6-16 Dose to ity of cream 00:00: area(s) in [place] 00 the Medical morning. Branch hydrocortis 2022-0 Yes 1{appli Apply 1 Univers one 2.5 % 6-16 cator} Applicator it y of cream 00:00: to area(s) [place] 00 as needed. Medical Branch nystatin 3-0 Yes 1{dose} Apply 1 Uni vers 100,000 6-16 Dose to ity of unit/gram 00:00: area(s) in [place] cream 00 the Medical morning. Branch terbinafine 3-0 Yes 1{dose} Apply 1 Univers HCL 1 % 6-16 Dose to ity of cream 00:00: area(s) in [place] 00 the Medical morning. Branch hydrocortis 2023-0 Yes 1{appli Apply 1 Univers one 2.5 % 6-16 cator} Applicator it y of cream 00:00: to area(s) [place] 00 as needed. Medical Branch nystatin 2022- Yes 1{dose} Apply 1 Uni vers 100,000 6-16 Dose to ity of unit/gram 00:00: area(s[place] in [place] cream 00 the Medical morning. Branch terbinafine 2022-0 Yes 1{dose} Apply 1 Univers HCL 1 % 6-16 Dose to ity of cream 00:00: area(s) in [place] 00 the Medical morning. Branch hydrocortis 2022-0 Yes 1{appli Apply 1 Univers one 2.5 % 6-16 cator} Applicator it y of cream 00:00: to area(s) [place] [address] as needed. Medical Branch nystatin Yes 1{dose} Apply 1 Uni vers 100,000 6-16 Dose to ity of unit/gram 00:00: area(s) in [place] cream 00 the Medical morning. Branch hydrocortis Yes 1{appli Apply 1 Univers one 2.5 % 6-16 cator} Applicator it y of cream 00:00: to area(s) [place] [address] as needed. Medical Branch nystatin 2022- Yes 1{dose} Apply 1 Uni vers 100,000 6-16 Dose to ity of unit/gram 00:00: area(s) in [place] cream 00 the Medical morning. Branch hydrocortis 2022- Yes 1{appli Apply 1 Univers one 2.5 % 6-16 cator} Applicator it y of cream 00:00: to area(s) [place] 00 as needed. Medical Branch nystatin 2022-0 Yes 1{dose} Apply 1 Uni vers 100,000 6-16 Dose to ity of unit/gram 00:00: area(s) in [place] cream 00 the Medical morning. Branch hydrocortis 2022-0 Yes 1{appli Apply 1 [facility] one 2.5 % 6-16 cator} Applicator it y of cream 00:00: to area(s) [place] [address] as needed. Medical Branch nystatin 2022-0 Yes 1{dose} Apply 1 Uni vers 100,000 6-16 Dose to ity of unit/gram 00:00: area(s) in [place] cream 00 the Medical morning. Branch hydrocortis 2022-0 Yes 1{appli Apply 1 [facility] one 2.5 % 6-16 cator} Applicator it y of cream 00:00: to area(s) [place] 00 as needed. Medical Branch nystatin 2022-0 Yes 1{dose} Apply 1 Uni vers 100,000 6-16 Dose to ity of unit/gram 00:00: area(s) in [place] cream 00 the Medical morning. Branch hydrocortis 2022-0 Yes 1{appli Apply 1 [facility] one 2.5 % 6-16 cator} Applicator it y of cream 00:00: to area(s) [place] 00 as needed. Medical Branch nystatin 2022-0 Yes 1{dose} Apply 1 Uni vers 100,000 6-16 Dose to ity of unit/gram 00:00: area(s[place] in [place] cream 00 the Medical morning. Branch hydrocortis 2022-0 Yes 1{appli Apply 1 Univers one 2.5 % 6-16 cator} Applicator it y of cream 00:00: to area(s) [place] [address] as needed. Medical Branch nystatin 2022-0 Yes 1{dose} Apply 1 Uni vers 100,000 6-16 Dose to ity of unit/gram 00:00: area(s[place] in [place] cream 00 the Medical morning. Branch hydrocortis 2022-0 Yes 1{appli Apply 1 Univers one 2.5 % 6-16 cator} Applicator it y of cream 00:00: to area(s) [place] [address] as needed. Medical Branch nystatin 2022-0 Yes 1{dose} Apply 1 Uni vers 100,000 6-16 Dose to ity of unit/gram 00:00: area(s[place] in [place] cream 00 the Medical morning. Branch hydrocortis 2022-0 Yes 1{appli Apply 1 [facility] one 2.5 % 6-16 cator} Applicator it y of cream 00:00: to area(s) [place] [address] as needed. Medical Branch nystatin 2022-0 Yes 1{dose} Apply 1 Uni vers 100,000 6-16 Dose to ity of unit/gram 00:00: area(s[place] in [place] cream 00 the Medical morning. Branch hydrocortis 2022-0 Yes 1{appli Apply 1 [facility] one 2.5 % 6-16 cator} Applicator it y of cream 00:00: to area(s) [place] 00 as needed. Medical Branch nystatin 2022-0 Yes 1{dose} Apply 1 Uni vers 100,000 6-16 Dose to ity of unit/gram 00:00: area(s[place] in [place] cream 00 the Medical morning. Branch hydrocortis 2022-0 Yes 1{appli Apply 1 [facility] one 2.5 % 6-16 cator} Applicator it y of cream 00:00: to area(s) [place] 00 as needed. Medical Branch nystatin 2022-0 Yes 1{dose} Apply 1 Uni vers 100,000 6-16 Dose to ity of unit/gram 00:00: area(s[place] in [place] cream 00 the Medical morning. Branch hydrocortis 2022-0 Yes 1{appli Apply 1 [facility] one 2.5 % 6-16 cator} Applicator it y of cream 00:00: to area(s) [place] 00 as needed. Medical Branch nystatin 2022-0 Yes 1{dose} Apply 1 Uni vers 100,000 6-16 Dose to ity of unit/gram 00:00: area(s[place] in [place] cream 00 the Medical morning. Branch hydrocortis 2022-0 Yes 1{appli Apply 1 [facility] one 2.5 % 6-16 cator} Applicator it y of cream 00:00: to area(s) [place] 00 as needed. Medical Branch nystatin 2022-0 Yes 1{dose} Apply 1 Uni vers 100,000 6-16 Dose to ity of unit/gram 00:00: area(s) in [place] cream 00 the Medical morning. Branch hydrocortis 2022-0 Yes 1{appli Apply 1 [facility] one 2.5 % 6-16 cator} Applicator it y of cream 00:00: to area(s) [place] 00 as needed. Medical Branch nystatin 2022-0 Yes 1{dose} Apply 1 Uni vers 100,000 6-16 Dose to ity of unit/gram 00:00: area(s) in [place] cream 00 the Medical morning. Branch hydrocortis 2022-0 Yes 1{appli Apply 1 [facility] one 2.5 % 6-16 cator} Applicator it y of cream 00:00: to area(s) [place] 00 as needed. Medical Branch nystatin 2022-0 Yes 1{dose} Apply 1 Uni vers 100,000 6-16 Dose to ity of unit/gram 00:00: area(s[place] in [place] cream 00 the Medical morning. Branch hydrocortis 2022-0 Yes 1{appli Apply 1 [facility] one 2.5 % 6-16 cator} Applicator it y of cream 00:00: to area(s) [place] 00 as needed. Medical Branch nystatin 2022-0 Yes 1{dose} Apply 1 Uni vers 100,000 6-16 Dose to ity of unit/gram 00:00: area(s[place] in [place] cream 00 the Medical morning. Branch hydrocortis 2022-0 Yes 1{appli Apply 1 [facility] one 2.5 % 6-16 cator} Applicator it y of cream 00:00: to area(s) [place] 00 as needed. Medical Branch nystatin 2022-0 Yes 1{dose} Apply 1 Uni vers 100,000 6-16 Dose to ity of unit/gram 00:00: area(s[place] in [place] cream 00 the Medical morning. Branch hydrocortis 2022-0 Yes 1{appli Apply 1 [facility] one 2.5 % 6-16 cator} Applicator it y of cream 00:00: to area(s) [place] 00 as needed. Medical Branch nystatin 2022-0 Yes 1{dose} Apply 1 [facility] vers 100,000 6-16 Dose to ity of unit/gram 00:00: area(s) in [place] cream 00 the Medical morning. Branch hydrocortis 2022-0 Yes 1{appli Apply 1 [facility] one 2.5 % 6-16 cator} Applicator it y of cream 00:00: to area(s) [place] 00 as needed. Medical Branch nystatin 2022-0 Yes 1{dose} Apply 1 [facility] vers 100,000 6-16 Dose to ity of unit/gram 00:00: area(s) in [place] cream 00 the Medical morning. Branch hydrocortis 2022-0 Yes 1{appli Apply 1 [facility] one 2.5 % 6-16 cator} Applicator it y of cream 00:00: to area(s) [place] 00 as needed. Medical Branch nystatin 2022-0 Yes 1{dose} Apply 1 [facility] vers 100,000 6-16 Dose to ity of unit/gram 00:00: area(s) in [place] cream 00 the Medical morning. Branch hydrocortis 2022-0 Yes 1{appli Apply 1 [facility] one 2.5 % 6-16 cator} Applicator it y of cream 00:00: to area(s) [place] 00 as needed. Medical Branch nystatin 2022-0 Yes 1{dose} Apply 1 [facility] vers 100,000 6-16 Dose to ity of unit/gram 00:00: area(s) in [place] cream 00 the Medical morning. Branch hydrocortis 2022-0 Yes 1{appli Apply 1 [facility] one 2.5 % 6-16 cator} Applicator it y of cream 00:00: to area(s) [place] 00 as needed. Medical Branch nystatin 2022-0 Yes 1{dose} Apply 1 [facility] vers 100,000 6-16 Dose to ity of unit/gram 00:00: area(s) in [place] cream 00 the Medical morning. Branch hydrocortis 2022-0 Yes 1{appli Apply 1 [facility] one 2.5 % 6-16 cator} Applicator it y of cream 00:00: to area(s) [place] 00 as needed. Medical Branch nystatin 2022-0 Yes 1{dose} Apply 1 [facility] vers 100,000 6-16 Dose to ity of unit/gram 00:00: area(s) in [place] cream 00 the Medical morning. Branch hydrocortis 2022-0 Yes 1{appli Apply 1 [facility] one 2.5 % 6-16 cator} Applicator it y of cream 00:00: to area(s) [place] 00 as needed. Medical Branch nystatin 2022-0 Yes 1{dose} Apply 1 [facility] vers 100,000 6-16 Dose to ity of unit/gram 00:00: area(s) in [place] cream 00 the Medical morning. Branch hydrocortis 2022-0 Yes 1{appli Apply 1 [facility] one 2.5 % 6-16 cator} Applicator it y of cream 00:00: to area(s) [place] 00 as needed. Medical Branch nystatin 2022-0 Yes 1{dose} Apply 1 [facility] vers 100,000 6-16 Dose to ity of unit/gram 00:00: area(s) in [place] cream 00 the Medical morning. Branch hydrocortis Yes 1{appli Apply 1 [facility] one 2.5 % 6-16 cator} Applicator it y of cream 00:00: to area(s) [place] 00 as needed. Medical Branch nystatin Yes [...] ity of cream 00:00: 00:00 area(s) in [place] 00 :00 the Medical morning. Branch metoprolol Yes [id number] 25mg Take 1 U nivers succinate 6-06 tablet by ity o f XL 25 mg 24 00:00: mouth in [place] hr tablet 00 the Medical morning. Branch metoprolol 0 Yes [id number] 25mg Take 1 [facility] nivers succinate 6-06 tablet by ity o f XL 25 mg 24 00:00: mouth in [place] hr tablet 00 the Medical morning. Branch metoprolol 0 Yes [id number] 25mg Take 1 [facility] nivers succinate 6-06 tablet by ity o f XL 25 mg 24 00:00: mouth in [place] hr tablet 00 the Medical morning. Branch metoprolol 2023-0 Yes [id number] 25mg Take 1 [facility] nivers succinate 6-06 tablet by ity o f XL 25 mg 24 00:00: mouth in [place] hr tablet 00 the Medical morning. Branch metoprolol 3-0 Yes [id number] 25mg Take 1 [facility] nivers succinate 6-06 tablet by ity o f XL 25 mg 24 00:00: mouth in [place] hr tablet 00 the Medical morning. Branch metoprolol 2022-0 Yes [id number] 25mg Take 1 U nivers succinate 6-06 tablet by ity o f XL 25 mg 24 00:00: mouth in [place] hr tablet 00 the Medical morning. Branch metoprolol 3-0 Yes [id number] 25mg Take 1 [facility] nivers succinate 6-06 tablet by ity o f XL 25 mg 24 00:00: mouth in [place] hr tablet 00 the Medical morning. Branch metoprolol 2022-0 Yes [id number] 25mg Take 1 [facility] nivers succinate 6-06 tablet by ity o f XL 25 mg 24 00:00: mouth in [place] hr tablet 00 the Medical morning. Branch metoprolol 2022-0 Yes [id number] 25mg Take 1 U nivers succinate 6-06 tablet by ity o f XL 25 mg 24 00:00: mouth in [place] hr tablet 00 the Medical morning. Branch metoprolol 2022-0 Yes [id number] 25mg Take 1 U nivers succinate 6-06 tablet by ity o f XL 25 mg 24 00:00: mouth in [place] hr tablet 00 the Medical morning. Branch metoprolol 3-0 Yes [id number] 25mg Take 1 [facility] nivers succinate 6-06 tablet by ity o f XL 25 mg 24 00:00: mouth in [place] hr tablet 00 the Medical morning. Branch metoprolol 3-0 Yes [id number] 25mg Take 1 U nivers succinate 6-06 tablet by ity o f XL 25 mg 24 00:00: mouth in [place] hr tablet 00 the Medical morning. Branch metoprolol 3-0 Yes [id number] 25mg Take 1 U nivers succinate 6-06 tablet by ity o f XL 25 mg 24 00:00: mouth in [place] hr tablet 00 the Medical morning. Branch metoprolol 3-0 Yes [id number] 25mg Take 1 U nivers succinate 6-06 tablet by ity o f XL 25 mg 24 00:00: mouth in [place] hr tablet 00 the Medical morning. Branch metoprolol 3-0 Yes [id number] 25mg Take 1 U nivers succinate 6-06 tablet by ity o f XL 25 mg 24 00:00: mouth in [place] hr tablet 00 the Medical morning. Branch metoprolol 2022-0 Yes [id number] 25mg Take 1 [facility] nivers succinate 6-06 tablet by ity o f XL 25 mg 24 00:00: mouth in [place] hr tablet 00 the Medical morning. Branch metoprolol 3-0 Yes [id number] 25mg Take 1 [facility] nivers succinate 6-06 tablet by ity o f XL 25 mg 24 00:00: mouth in [place] hr tablet 00 the Medical morning. Branch metoprolol 2022-0 Yes [id number] 25mg Take 1 [facility] nivers succinate 6-06 tablet by ity o f XL 25 mg 24 00:00: mouth in [place] hr tablet 00 the Medical morning. Branch metoprolol 2022-0 Yes [id number] 25mg Take 1 [facility] nivers succinate 6-06 tablet by ity o f XL 25 mg 24 00:00: mouth in [place] hr tablet 00 the Medical morning. Branch metoprolol 2022-0 Yes [id number] 25mg Take 1 U nivers succinate 6-06 tablet by ity o f XL 25 mg 24 00:00: mouth in [place] hr tablet 00 the Medical morning. Branch metoprolol 3-0 Yes [id number] 25mg Take 1 [facility] nivers succinate 6-06 tablet by ity o f XL 25 mg 24 00:00: mouth in [place] hr tablet 00 the Medical morning. Branch metoprolol 3-0 Yes [id number] 25mg Take 1 [facility] nivers succinate 6-06 tablet by ity o f XL 25 mg 24 00:00: mouth in [place] hr tablet 00 the Medical morning. Branch metoprolol 3-0 Yes [id number] 25mg Take 1 [facility] nivers succinate 6-06 tablet by ity o f XL 25 mg 24 00:00: mouth in [place] hr tablet 00 the Medical morning. Branch metoprolol Yes [id number] 25mg Take 1 [facility] nivers succinate 6-06 tablet by ity o f XL 25 mg 24 00:00: mouth in [place] hr tablet 00 the Medical morning. Branch metoprolol 2022- No [id number] 25mg Take 1 [facility] succinate 12-22-13 tablet by ity of XL 25 mg 24 00:00: 00:00 mouth in [place] hr tablet 00 :00 the Medical morning. Branch metoprolol 2022- No [id number] 25mg Take 1 [facility] succinate 12-22-13 tablet by ity of XL 25 mg 24 00:00: 00:00 mouth in [place] hr tablet 00 :00 the Medical morning. Branch metoprolol 2022- No [id number] 25mg Take 1 [facility] succinate 12-22- tablet by ity of XL 25 mg 24 00:00: 00:00 mouth in [place] hr tablet 00 :00 the Medical morning. Branch cariprazine 2022- No 1.5mg Take 1.5 [facility] (VRAYLAR) 6-05 06-05 mg by ity of 1.5 mg (1)- 08:42: 00:[place] 3 mg (6) 24 :00 every Medical CpPk morning. Branch cariprazine No 1.5mg Take 1.5 [facility] (VRAYLAR) 6-05 06-05 mg by ity of 1.5 mg (1)- 08:42: 00:00 [place] 3 mg (6) 24 :00 every Medical CpPk morning. Branch cariprazine No 1.5mg Take 1.5 [facility] (VRAYLAR) 6-05 06-05 mg by ity of 1.5 mg (1)- 08:42: 00:00 mouth [place] 3 mg (6) 24 :00 every Medical CpPk morning. Branch SUMAtriptan Yes [id number] 100mg Take 1 [facility] 100 mg 6-05 [...] days in a week. SUMAtriptan 2023-0 Yes [id number] 100mg Take 1 [facility] 100 mg 6-05 [...] days in a week. SUMAtriptan 2023-0 Yes [id number] 100mg Take 1 [facility] 100 mg 6-05 [...] days in a week. SUMAtriptan 2023-0 Yes [id number] 100mg Take 1 [facility] 100 mg 6-05 [...] days in a week. SUMAtriptan 2023-0 Yes [id number] 100mg Take 1 [facility] 100 mg 6-05 [...] days in a week. SUMAtriptan 2023-0 Yes [id number] 100mg Take 1 [facility] 100 mg 6-05 [...] days in a week. SUMAtriptan 2023-0 Yes [id number] 100mg Take 1 [facility] 100 mg 6-05 [...] days in a week. SUMAtriptan 2023-0 Yes [id number] 100mg Take 1 [facility] 100 mg 6-05 [...] days in a week. SUMAtriptan 2023-0 Yes [id number] 100mg Take 1 [facility] 100 mg 6-05 [...] days in a week. SUMAtriptan 2023-0 Yes [id number] 100mg Take 1 [facility] 100 mg 6-05 [...] days in a week. SUMAtriptan 2023-0 Yes [id number] 100mg Take 1 [facility] 100 mg 6-05 [...] days in a week. SUMAtriptan 2023-0 Yes [id number] 100mg Take 1 [facility] 100 mg 6-05 [...] days in a week. SUMAtriptan 2023-0 Yes [id number] 100mg Take 1 [facility] 100 mg 6-05 [...] days in a week. SUMAtriptan 2023-0 Yes [id number] 100mg Take 1 [facility] 100 mg 6-05 [...] days in a week. SUMAtriptan 2023-0 Yes [id number] 100mg Take 1 [facility] 100 mg 6-05 [...] days in a week. SUMAtriptan 2023-0 Yes [id number] 100mg Take 1 [facility] 100 mg 6-05 [...] days in a week. SUMAtriptan 2023-0 Yes [id number] 100mg Take 1 [facility] 100 mg 6-05 [...] days in a week. SUMAtriptan 2023-0 Yes [id number] 100mg Take 1 [facility] 100 mg 6-05 [...] days in a week. SUMAtriptan 2023-0 Yes [id number] 100mg Take 1 [facility] 100 mg 6-05 [...] days in a week. SUMAtriptan 2023-0 Yes [id number] 100mg Take 1 [facility] 100 mg 6-05 [...] days in a week. SUMAtriptan 2023-0 Yes [id number] 100mg Take 1 [facility] 100 mg 6-05 [...] days in a week. SUMAtriptan 2023-0 Yes [id number] 100mg Take 1 [facility] 100 mg 6-05 [...] days in a week. SUMAtriptan 2023-0 Yes [id number] 100mg Take 1 [facility] 100 mg 6-05 [...] days in a week. SUMAtriptan 2023-0 Yes [id number] 100mg Take 1 [facility] 100 mg 6-05 [...] days in a week. SUMAtriptan 2023-0 Yes [id number] 100mg Take 1 [facility] 100 mg 6-05 [...] days in a week. SUMAtriptan 2023-0 Yes [id number] 100mg Take 1 [facility] 100 mg 6-05 [...] days in a week. SUMAtriptan 2023-0 Yes [id number] 100mg Take 1 [facility] 100 mg 6-05 [...] days in a week. SUMAtriptan 2023-0 Yes [id number] 100mg Take 1 [facility] 100 mg 6-05 [...] days in a week. SUMAtriptan 2023-0 Yes [id number] 100mg Take 1 [facility] 100 mg 6-05 [...] days in a week. SUMAtriptan 2023-0 Yes [id number] 100mg Take 1 [facility] 100 mg 6-05 [...] days in a week. SUMAtriptan 2023-0 Yes [id number] 100mg Take 1 [facility] 100 mg 6-05 [...] days in a week. SUMAtriptan 2023-0 Yes [id number] 100mg Take 1 [facility] 100 mg 6-05 [...] days in a week. SUMAtriptan 2023-0 Yes [id number] 100mg Take 1 [facility] 100 mg 6-05 [...] days in a week. SUMAtriptan 2023-0 Yes [id number] 100mg Take 1 [facility] 100 mg 6-05 [...] days in a week. SUMAtriptan 2023-0 Yes [id number] 100mg Take 1 [facility] 100 mg 6-05 [...] days in a week. SUMAtriptan 2023-0 Yes [id number] 100mg Take 1 [facility] 100 mg 6-05 [...] days in a week. SUMAtriptan 2023-0 Yes [id number] 100mg Take 1 [facility] 100 mg 6-05 [...] days in a week. SUMAtriptan 2023-0 Yes [id number] 100mg Take 1 [facility] 100 mg 6-05 [...] days in a week. SUMAtriptan 2023-0 Yes [id number] 100mg Take 1 [facility] 100 mg 6-05 [...] days in a week. SUMAtriptan 2023-0 Yes [id number] 100mg Take 1 [facility] 100 mg 6-05 [...] days in a week. SUMAtriptan 2023-0 Yes [id number] 100mg Take 1 [facility] 100 mg 6-05 [...] days in a week. SUMAtriptan 2023-0 Yes [id number] 100mg Take 1 [facility] 100 mg 6-05 [...] days in a week. SUMAtriptan 2023-0 Yes [id number] 100mg Take 1 [facility] 100 mg 6-05 [...] days in a week. SUMAtriptan 2023-0 Yes [id number] 100mg Take 1 [facility] 100 mg 6-05 [...] days in a week. SUMAtriptan 2023-0 Yes [id number] 100mg Take 1 [facility] 100 mg 6-05 [...] days in a week. SUMAtriptan 2023-0 Yes [id number] 100mg Take 1 [facility] 100 mg 6-05 [...] days in a week. SUMAtriptan 2023-0 Yes [id number] 100mg Take 1 [facility] 100 mg 6-05 [...] days in a week. SUMAtriptan 2023-0 Yes [id number] 100mg Take 1 [facility] 100 mg 6-05 [...] days in a week. SUMAtriptan 2023-0 Yes [id number] 100mg Take 1 [facility] 100 mg 6-05 [...] days in a week. SUMAtriptan 2023-0 Yes [id number] 100mg Take 1 [facility] 100 mg 6-05 [...] days in a week. SUMAtriptan 2023-0 Yes [id number] 100mg Take 1 [facility] 100 mg 6-05 [...] days in a week. SUMAtriptan 2023-0 Yes [id number] 100mg Take 1 [facility] 100 mg 6-05 [...] days in a week. SUMAtriptan 2023-0 Yes [id number] 100mg Take 1 [facility] 100 mg 6-05 [...] days in a week. SUMAtriptan 2023-0 Yes [id number] 100mg Take 1 [facility] 100 mg 6-05 [...] days in a week. SUMAtriptan 2023-0 Yes [id number] 100mg Take 1 [facility] 100 mg 6-05 [...] days in a week. SUMAtriptan 2023-0 Yes [id number] 100mg Take 1 [facility] 100 mg 6-05 [...] days in a week. SUMAtriptan 2023-0 Yes [id number] 100mg Take 1 [facility] 100 mg 6-05 [...] days in a week. SUMAtriptan 2023-0 Yes [id number] 100mg Take 1 [facility] 100 mg 6-05 [...] days in a week. SUMAtriptan 2023-0 Yes [id number] 100mg Take 1 [facility] 100 mg 6-05 [...] days in a week. SUMAtriptan 2023-0 Yes [id number] 100mg Take 1 [facility] 100 mg 6-05 [...] days in a week. SUMAtriptan 2023-0 Yes [id number] 100mg Take 1 [facility] 100 mg 6-05 [...] days in a week. SUMAtriptan 2023-0 Yes [id number] 100mg Take 1 [facility] 100 mg 6-05 [...] days in a week. SUMAtriptan 2023-0 Yes [id number] 100mg Take 1 [facility] 100 mg 6-05 [...] days in a week. SUMAtriptan 2023-0 Yes [id number] 100mg Take 1 [facility] 100 mg 6-05 [...] days in a week. SUMAtriptan 2023-0 Yes [id number] 100mg Take 1 [facility] 100 mg 6-05 [...] days in a week. SUMAtriptan 2023-0 Yes [id number] 100mg Take 1 [facility] 100 mg 6-05 [...] days in a week. SUMAtriptan 2023-0 Yes [id number] 100mg Take 1 [facility] 100 mg 6-05 [...] days in a week. SUMAtriptan 2023-0 Yes [id number] 100mg Take 1 [facility] 100 mg 6-05 [...] days in a week. SUMAtriptan 2023-0 Yes [id number] 100mg Take 1 [facility] 100 mg 6-05 [...] days in a week. SUMAtriptan 2023-0 Yes [id number] 100mg Take 1 [facility] 100 mg 6-05 [...] days in a week. SUMAtriptan 2023-0 Yes [id number] 100mg Take 1 [facility] 100 mg 6-05 [...] days in a week. benzonatate 2023-0 Yes [id number] 100mg Take 1 [facility] 100 mg 5-22 capsule by ity of capsule 00:00: mouth 3 [place] 00 (three) Medical times Branch daily as needed for Cough. benzonatate 2023-0 Yes [id number] 100mg Take 1 [facility] 100 mg 5-22 capsule by ity of capsule 00:00: mouth 3 [place] (three) Medical times Branch daily as needed for Cough. benzonatate 2023-0 Yes [id number] 100mg Take 1 [facility] 100 mg 5-22 capsule by ity of capsule 00:00: mouth 3 (three) Medical times Branch daily as needed for Cough. benzonatate 2023-0 Yes [id number] 100mg Take 1 [facility] 100 mg 5-22 capsule by ity of capsule 00:00: mouth 3 00 (three) Medical times Branch daily as needed for Cough. benzonatate 2023-0 Yes [id number] 100mg Take 1 [facility] 100 mg 5-22 [...] Branch triamcinolo 3-0 Yes 1{appli Apply 1 [facility] ne 12-07 cator} Applicator ity of acetonide 00:00: to area(s) [place] 0.1 % cream 00 as needed. Me dical Branch azithromyci 3-0 Yes 260mg Take 6.5 U nivers n 200 mg/5 5-22 mL by ity of mL 00:00: mouth in [place] suspension 00 the Medical morning. Branch triamcinolo 3-0 Yes 1{appli Apply 1 [facility] ne 12-07 cator} Applicator ity of acetonide 00:00: to area(s) [place] 0.1 % cream 00 as needed. Me dical Branch azithromyci 3-0 Yes 260mg Take 6.5 U nivers n 200 mg/5 5-22 mL by ity of mL 00:00: mouth in [place] suspension 00 the Medical morning. Branch triamcinolo 3-0 Yes 1{appli Apply 1 [facility] ne 12-07 cator} Applicator ity of acetonide 00:00: to area(s) [place] 0.1 % cream 00 as needed. Me dical Branch azithromyci 3-0 Yes 260mg Take 6.5 U nivers n 200 mg/5 5-22 mL by ity of mL 00:00: mouth in [place] suspension 00 the Medical morning. Branch triamcinolo 3-0 Yes 1{appli Apply 1 [facility] ne 5 cator} Applicator ity [...] 3-0 Yes 1{appli Apply 1 [facility] ne 22 cator} Applicator ity of acetonide [...] Branch triamcinolo 3-0 Yes 1{appli Apply 1 [facility] ne 12-07 cator} Applicator ity [...] Branch triamcinolo 3-0 Yes 1{appli Apply 1 [facility] ne 12-07 cator} Applicator ity of acetonide 00:00: to area(s) [place] 0.1 % cream 00 as needed. Me dical Branch azithromyci 2023-0 Yes 260mg Take 6.5 U nivers n 200 mg/5 5-22 mL by ity of mL 00:00: mouth in [place] suspension 00 the Medical morning. Branch triamcinolo 2023-0 Yes 1{appli Apply 1 [facility] ne 12-07 [...] 3-0 Yes 1{appli Apply 1 [facility] ne 5- cator} Applicator ity of acetonide [...] 2023-0 Yes 1{appli Apply 1 [facility] ne 5- cator} Applicator ity of acetonide 00:00: to area(s) [place] 0.1 % cream 00 as needed. Me dical Branch azithromyci 0 Yes 260mg Take 6.5 U nivers n 200 mg/5 5-22 mL by ity of mL 00:00: mouth in [place] suspension 00 the Medical morning. Branch triamcinolo 0 Yes 1{appli Apply 1 [facility] ne 5-22 cator} Applicator ity of acetonide 00:00: to area(s) [place] 0.1 % cream 00 as needed. Me dical Branch azithromyci 0 Yes 260mg Take 6.5 U nivers n 200 mg/5 5-22 mL by ity of mL 00:00: mouth in [place] suspension 00 the Medical morning. Branch triamcinolo 0 Yes 1{appli Apply 1 [facility] ne 5-22 cator} Applicator ity of acetonide 00:00: to area(s) [place] 0.1 % cream 00 as needed. Me dical Branch benzonatate 2022-0 2022- No [id number] 100mg Take 1 [facility] 100 mg 5-22 06-05 capsule by ity of capsule 00:00: 00:00 mouth 3 [place] 00 :00 (three) Medical times Branch daily as needed for Cough. benzonatate 2022-0 2022- No [id number] 100mg Take 1 [facility] 100 mg 5-22 06-05 capsule by ity of capsule 00:00: 00:00 mouth 3 [place] 00 :00 (three) Medical times Branch daily as needed for Cough. benzonatate 2022-0 2022- No [id number] 100mg Take 1 [facility] 100 mg 5-22 06-05 capsule by ity of capsule 00:00: 00:00 mouth 3 [place] 00 :00 (three) Medical times Branch daily as needed for Cough. NYSTOP 2022-0 Yes 1{dose} Apply 1 Unive [...] area(s) in [place] powder 00 the [facility]. Branch cariprazine 2023-0 Yes 1{capsu Take 1 U nivers (VRAYLAR) 3 5-04 le} capsule by it y of mg Cap 11:09: mouth in [address] and 1 capsule in the evening. cariprazine 2023-0 Yes 1{capsu Take 1 U nivers (VRAYLAR) 3 5-04 le} capsule by it y of mg Cap 11:09: mouth in [address] and 1 capsule in the evening. cariprazine 2023-0 Yes 1{capsu Take 1 U nivers (VRAYLAR) 3 5-04 le} capsule by it y of mg Cap 11:09: mouth in [address] and 1 capsule in the evening. cariprazine 2023-0 Yes 1{capsu Take 1 U nivers (VRAYLAR) 3 5-04 le} capsule by it y of mg Cap 11:09: mouth in [address] and 1 capsule in the evening. cariprazine 2023-0 Yes 1{capsu Take 1 U nivers (VRAYLAR) 3 5-04 le} capsule by it y of mg Cap 11:09: mouth in [address] and 1 capsule in the evening. cariprazine 2023-0 Yes 1{capsu Take 1 U nivers (VRAYLAR) 3 5-04 le} capsule by it y of mg Cap 11:09: mouth in [address] and 1 capsule in the evening. cariprazine 2023-0 Yes 1{capsu Take 1 U nivers (VRAYLAR) 3 5-04 le} capsule by it y of mg Cap 11:09: mouth in [address] and 1 capsule in the evening. cariprazine 2023-0 Yes 1{capsu Take 1 U nivers (VRAYLAR) 3 5-04 le} capsule by it y of mg Cap 11:09: mouth in [address] and 1 capsule in the evening. cariprazine 2023-0 Yes 1{capsu Take 1 U nivers (VRAYLAR) 3 5-04 le} capsule by it y of mg Cap 11:09: mouth in [address] and 1 capsule in the evening. cariprazine 2023-0 Yes 1{capsu Take 1 U nivers (VRAYLAR) 3 5-04 le} capsule by it y of mg Cap 11:09: mouth in [address] and 1 capsule in the evening. cariprazine 2023-0 Yes 1{capsu Take 1 U nivers (VRAYLAR) 3 5-04 le} capsule by it y of mg Cap 11:09: mouth in [address] and 1 capsule in the evening. cariprazine 2023-0 Yes 1{capsu Take 1 U nivers (VRAYLAR) 3 5-04 le} capsule by it y of mg Cap 11:09: mouth in [address] and 1 capsule in the evening. cariprazine 2023-0 Yes 1{capsu Take 1 U nivers (VRAYLAR) 3 5-04 le} capsule by it y of mg Cap 11:09: mouth in [address] and 1 capsule in the evening. cariprazine 2023-0 Yes 1{capsu Take 1 U nivers (VRAYLAR) 3 5-04 le} capsule by it y of mg Cap 11:09: mouth in [address] and 1 capsule in the evening. cariprazine 2023-0 Yes 1{capsu Take 1 U nivers (VRAYLAR) 3 5-04 le} capsule by it y of mg Cap 11:09: mouth in [address] and 1 capsule in the evening. cariprazine 2023-0 Yes 1{capsu Take 1 U nivers (VRAYLAR) 3 5-04 le} capsule by it y of mg Cap 11:09: mouth in [address] and 1 capsule in the evening. cariprazine 2023-0 Yes 1{capsu Take 1 U nivers (VRAYLAR) 3 5-04 le} capsule by it y of mg Cap 11:09: mouth in [address] and 1 capsule in the evening. cariprazine 2023-0 Yes 1{capsu Take 1 U nivers (VRAYLAR) 3 5-04 le} capsule by it y of mg Cap 11:09: mouth in [place] 34 the Medical morning Branch and 1 capsule in the evening. cariprazine 2023-0 Yes 1{capsu Take 1 U nivers (VRAYLAR) 3 5-04 le} capsule by it y of mg Cap 11:09: mouth in [address] and 1 capsule in the evening. cariprazine 2023-0 Yes 1{capsu Take 1 U nivers (VRAYLAR) 3 5-04 le} capsule by it y of mg Cap 11:09: mouth in [address] and 1 capsule in the evening. cariprazine 2023-0 Yes 1{capsu Take 1 U nivers (VRAYLAR) 3 5-04 le} capsule by it y of mg Cap 11:09: mouth in [address] and 1 capsule in the evening. cariprazine 2023-0 Yes 1{capsu Take 1 U nivers (VRAYLAR) 3 5-04 le} capsule by it y of mg Cap 11:09: mouth in [address] and 1 capsule in the evening. cariprazine 2023-0 Yes 1{capsu Take 1 U nivers (VRAYLAR) 3 5-04 le} capsule by it y of mg Cap 11:09: mouth in [address] and 1 capsule in the evening. cariprazine 2023-0 Yes 1{capsu Take 1 U nivers (VRAYLAR) 3 5-04 le} capsule by it y of mg Cap 11:09: mouth in [address] and 1 capsule in the evening. cariprazine 2023-0 Yes 1{capsu Take 1 U nivers (VRAYLAR) 3 5-04 le} capsule by it y of mg Cap 11:09: mouth in [address] and 1 capsule in the evening. cariprazine 2023-0 Yes 1{capsu Take 1 U nivers (VRAYLAR) 3 5-04 le} capsule by it y of mg Cap 11:09: mouth in [address] and 1 capsule in the evening. cariprazine 2023-0 Yes 1{capsu Take 1 U nivers (VRAYLAR) 3 5-04 le} capsule by it y of mg Cap 11:09: mouth in [address] and 1 capsule in the evening. cariprazine 2023-0 Yes 1{capsu Take 1 U nivers (VRAYLAR) 3 5-04 le} capsule by it y of mg Cap 11:09: mouth in [address] and 1 capsule in the evening. cariprazine 2023-0 Yes 1{capsu Take 1 U nivers (VRAYLAR) 3 5-04 le} capsule by it y of mg Cap 11:09: mouth in [address] and 1 capsule in the evening. cariprazine 2023-0 Yes 1{capsu Take 1 U nivers (VRAYLAR) 3 5-04 le} capsule by it y of mg Cap 11:09: mouth in [address] and 1 capsule in the evening. cariprazine 2023-0 Yes 1{capsu Take 1 U nivers (VRAYLAR) 3 5-04 le} capsule by it y of mg Cap 11:09: mouth in [address] and 1 capsule in the evening. cariprazine 2023-0 Yes 1{capsu Take 1 U nivers (VRAYLAR) 3 5-04 le} capsule by it y of mg Cap 11:09: mouth in [address] and 1 capsule in the evening. cariprazine 2023-0 Yes 1{capsu Take 1 U nivers (VRAYLAR) 3 5-04 le} capsule by it y of mg Cap 11:09: mouth in [address] and 1 capsule in the evening. cariprazine 2023-0 Yes 1{capsu Take 1 U nivers (VRAYLAR) 3 5-04 le} capsule by it y of mg Cap 11:09: mouth in [address] and 1 capsule in the evening. cariprazine 2023-0 Yes 1{capsu Take 1 U nivers (VRAYLAR) 3 5-04 le} capsule by it y of mg Cap 11:09: mouth in [address] and 1 capsule in the evening. cariprazine 2023-0 Yes 1{capsu Take 1 U nivers (VRAYLAR) 3 5-04 le} capsule by it y of mg Cap 11:09: mouth in [address] and 1 capsule in the evening. cariprazine 2023-0 Yes 1{capsu Take 1 U nivers (VRAYLAR) 3 5-04 le} capsule by it y of mg Cap 11:09: mouth in [place] 34 the Medical morning Branch and 1 capsule in the evening. dexamethaso 2023-0 Yes [id number] 12mg Take 120 [facility] ne 0.1 5-01 mL by ity of mg/mL LOW 00:00: [facility] the Medical ON solution morning. Bran ch ipratropium 2023-0 Yes [id number] .5mg Inhale 2.5 [facility] 0.02 % 5-01 mL every 6 ity of nebulizer 00:00: (six) [place] solution 00 hours as Medical needed for Branch Wheezing or Shortness of Breath. dexamethaso 2023-0 Yes [id number] 12mg Take 120 [facility] ne 0.1 5-01 mL by ity of mg/mL LOW 00:00: mouth in [facility] 00 the Medical ON solution morning. Bran ch ipratropium 2023-0 Yes [id number] .5mg Inhale 2.5 [facility] 0.02 % 5-01 mL every 6 ity of nebulizer 00:00: (six) [place] solution 00 hours as Medical needed for Branch Wheezing or Shortness of Breath. dexamethaso 2023-0 Yes [id number] 12mg Take 120 [facility] 0[facility]1 5-01 mL by it[facility] of mg/mL LOW 00:00: mouth in [facility] [place] [facility] 00 the Medical ON solution morning. Bran [facility] ipratropium 2023-0 Yes [id number] .5mg Inhale 2.5 [facility] 0.02 % 5-01 mL every 6 ity of nebulizer 00:00: (six) [place] solution 00 hours as Medical needed for Branch Wheezing or Shortness of Breath. dexamethaso 2023-0 Yes [id number] 12mg Take 120 [facility] ne 0.1 5-01 mL by ity of mg/mL LOW 00:00: [place] [facility] the Medical ON solution morning. Bran ch ipratropium 2023-0 Yes [id number] .5mg Inhale 2.5 [facility] 0.02 % 5-01 mL every 6 ity of nebulizer 00:00: (six) [place] solution 00 hours as Medical needed for Branch Wheezing or Shortness of Breath. dexamethaso 2023-0 Yes [id number] 12mg Take 120 [facility] ne 0.1 5-01 mL by ity of mg/mL LOW 00:00: [place] [facility] 00 the Medical ON solution morning. Bran ch ipratropium 2023-0 Yes [id number] .5mg Inhale 2.5 [facility] 0.02 % 5-01 mL every 6 ity of nebulizer 00:00: (six) [place] solution 00 hours as Medical needed for Branch Wheezing or Shortness of Breath. dexamethaso 2023-0 Yes [id number] 12mg Take 120 [facility] ne 0.1 5-01 mL by ity of mg/mL LOW 00:00: [place] [facility] 00 the Medical ON solution morning. Bran [facility] ipratropium 2023-0 Yes [id number] .5mg Inhale 2.5 [facility] 0.02 % 5-01 mL every 6 ity of nebulizer 00:00: (six) [place] solution 00 hours as Medical needed for Branch Wheezing or Shortness of Breath. dexamethaso 2023-0 Yes [id number] 12mg Take 120 [facility] ne 0.1 5-01 mL by it[facility] of mg/mL LOW 00:00: [place] [facility] 00 the Medical ON solution morning. Bran [facility] ipratropium 2023-0 Yes [id number] .5mg Inhale 2.5 [facility] 0.02 % 5-01 mL every 6 ity of nebulizer 00:00: (six) [place] solution 00 hours as Medical needed for Branch Wheezing or Shortness of Breath. dexamethaso 2023-0 Yes [id number] 12mg Take 120 [facility] ne 0.1 5-01 mL by [facility] of mg/mL LOW 00:00: [place] [facility] 00 the Medical ON solution morning. Bran [facility] ipratropium 2023-0 Yes [id number] .5mg Inhale 2.5 [facility] 0.02 % 5-01 mL every 6 ity of nebulizer 00:00: (six) [place] solution 00 hours as Medical needed for Branch Wheezing or Shortness of Breath. dexamethaso 2023-0 Yes [id number] 12mg Take 120 [facility] ne 0.1 5-01 mL by [facility] of mg/mL LOW 00:00: [place] [facility] 00 the Medical ON solution morning. Bran [facility] ipratropium 2023-0 Yes [id number] .5mg Inhale 2.5 [facility] 0.02 % 5-01 mL every 6 ity of nebulizer 00:00: (six) [place] solution 00 hours as Medical needed for Branch Wheezing or Shortness of Breath. dexamethaso 2023-0 Yes [id number] 12mg Take 120 [facility] ne 0.1 5-01 mL by [facility] of mg/mL LOW 00:00: [place] [facility] 00 the Medical ON solution morning. Bran ch ipratropium 2023-0 Yes [id number] .5mg Inhale 2.5 [facility] 0.02 % 5-01 mL every 6 ity of nebulizer 00:00: (six) [place] solution 00 hours as Medical needed for Branch Wheezing or Shortness of Breath. dexamethaso 2023-0 Yes [id number] 12mg Take 120 [facility] ne 0.1 5-01 mL by [facility] of mg/mL LOW 00:00: [place] [facility] 00 the Medical ON solution morning. [facility] ch ipratropium 2023-0 Yes [id number] .5mg Inhale 2.5 [facility] 0.02 % 5-01 mL every 6 ity of nebulizer 00:00: (six) [place] solution 00 hours as Medical needed for Branch Wheezing or Shortness of Breath. dexamethaso 2023-0 Yes [id number] 12mg Take 120 [facility] ne 0.1 5-01 mL by ity of mg/mL LOW 00:00: [place] [facility] 00 the Medical ON solution morning. Bran [facility] ipratropium 2023-0 Yes [id number] .5mg Inhale 2.5 [facility] 0.02 % 5-01 mL every 6 ity of nebulizer 00:00: (six) [place] solution 00 hours as Medical needed for Branch Wheezing or Shortness of Breath. dexamethaso 2023-0 Yes [id number] 12mg Take 120 [facility] ne 0.1 5-01 mL by ity of mg/mL LOW 00:00: [place] [facility] 00 the Medical ON solution morning. Bran [facility] ipratropium 2023-0 Yes [id number] .5mg Inhale 2.5 [facility] 0.02 % 5-01 mL every 6 ity of nebulizer 00:00: (six) [place] solution 00 hours as Medical needed for Branch Wheezing or Shortness of Breath. dexamethaso 2023-0 Yes [id number] 12mg Take 120 [facility] ne 0.1 5-01 mL by ity of mg/mL LOW 00:00: [place] [facility] 00 the Medical ON solution morning. Bran [facility] ipratropium 2023-0 Yes [id number] .5mg Inhale 2.5 [facility] 0.02 % 5-01 mL every 6 ity of nebulizer 00:00: (six) [place] solution 00 hours as Medical needed for Branch Wheezing or Shortness of Breath. dexamethaso 2023-0 Yes [id number] 12mg Take 120 [facility] ne 0.1 5-01 mL by it[facility] of mg/mL LOW 00:00: [place] [facility] 00 the Medical ON solution morning. [facility] ipratropium 2023-0 Yes [id number] .5mg Inhale 2.5 [facility] 0.02 % 5-01 mL every 6 ity of nebulizer 00:00: (six) [place] solution 00 hours as Medical needed for Branch Wheezing or Shortness of Breath. dexamethaso 2023-0 Yes [id number] 12mg Take 120 [facility] ne 0.1 5-01 mL by ity of mg/mL LOW 00:00: mouth [place] [facility] 00 the Medical ON solution morning. Bran [facility] ipratropium 2023-0 Yes [id number] .5mg Inhale 2.5 [facility] 0.02 % 5-01 mL every 6 ity of nebulizer 00:00: (six) [place] solution 00 hours as Medical needed for Branch Wheezing or Shortness of Breath. dexamethaso 2023-0 Yes [id number] 12mg Take 120 [facility] ne 0.1 5-01 mL by ity of mg/mL LOW 00:00: mouth [place] [facility] 00 the Medical ON solution morning. Bran [facility] ipratropium 2023-0 Yes [id number] .5mg Inhale 2.5 [facility] 0.02 % 5-01 mL every 6 ity of nebulizer 00:00: (six) [place] solution 00 hours as Medical needed for Branch Wheezing or Shortness of Breath. dexamethaso 2023-0 Yes [id number] 12mg Take 120 [facility] ne 0.1 5-01 mL by it[facility] of mg/mL LOW 00:00: mouth [place] [facility] 00 the Medical ON solution morning. Bran ch ipratropium 2023-0 Yes [id number] .5mg Inhale 2.5 [facility] 0.02 % 5-01 mL every 6 ity of nebulizer 00:00: (six) [place] solution 00 hours as Medical needed for Branch Wheezing or Shortness of Breath. dexamethaso 2023-0 Yes [id number] 12mg Take 120 [facility] ne 0.1 5-01 mL by ity of mg/mL LOW 00:00: [place] [facility] 00 the Medical ON solution morning. Bran ch ipratropium 2023-0 Yes [id number] .5mg Inhale 2.5 [facility] 0.02 % 5-01 mL every 6 ity of nebulizer 00:00: (six) [place] solution 00 hours as Medical needed for Branch Wheezing or Shortness of Breath. dexamethaso 2023-0 Yes [id number] 12mg Take 120 [facility] ne 0.1 5-01 mL by it[facility] of mg/mL LOW 00:00: [place] [facility] 00 the Medical ON solution morning. Bran [facility] ipratropium 2023-0 Yes [id number] .5mg Inhale 2.5 [facility] 0.02 % 5-01 mL every 6 ity of nebulizer 00:00: (six) [place] solution 00 hours as Medical needed for Branch Wheezing or Shortness of Breath. dexamethaso 2023-0 Yes [id number] 12mg Take 120 [facility] ne 0.1 5-01 mL by [facility] of mg/mL LOW 00:00: [place] [facility] 00 the Medical ON solution morning. Bran ch ipratropium 2023-0 Yes [id number] .5mg Inhale 2.5 [facility] 0.02 % 5-01 mL every 6 ity of nebulizer 00:00: (six) [place] solution 00 hours as Medical needed for Branch Wheezing or Shortness of Breath. dexamethaso 2023-0 Yes [id number] 12mg Take 120 [facility] ne 0.1 5-01 mL by ity of mg/mL LOW 00:00: [place] [facility] 00 the Medical ON solution morning. Bran ch ipratropium 2023-0 Yes [id number] .5mg Inhale 2.5 [facility] 0.02 % 5-01 mL every 6 ity of nebulizer 00:00: (six) [place] solution 00 hours as Medical needed for Branch Wheezing or Shortness of Breath. dexamethaso 2023-0 Yes [id number] 12mg Take 120 [facility] ne 0.1 5-01 mL by [facility]y of mg/mL LOW 00:00: mouth [place] [facility] 00 the Medical ON solution morning. Bran ch ipratropium 2023-0 Yes [id number] .5mg Inhale 2.5 [facility] 0.02 % 5-01 mL every 6 ity of nebulizer 00:00: (six) [place] solution 00 hours as Medical needed for Branch Wheezing or Shortness of Breath. dexamethaso 2023-0 Yes [id number] 12mg Take 120 [facility] ne 0.1 5-01 mL by ity of mg/mL LOW 00:00: mouth [place] [facility] 00 the Medical ON solution morning. Bran ch ipratropium 2023-0 Yes [id number] .5mg Inhale 2.5 [facility] 0.02 % 5-01 mL every 6 ity of nebulizer 00:00: (six) [place] solution 00 hours as Medical needed for Branch Wheezing or Shortness of Breath. dexamethaso 2023-0 Yes [id number] 12mg Take 120 [facility] ne 0.1 5-01 mL by ity of mg/mL LOW 00:00: mouth [place] [facility] 00 the Medical ON solution morning. Bran ch ipratropium 2023-0 Yes [id number] .5mg Inhale 2.5 [facility] 0.02 % 5-01 mL every 6 ity of nebulizer 00:00: (six) [place] solution 00 hours as Medical needed for Branch Wheezing or Shortness of Breath. dexamethaso 2023-0 Yes [id number] 12mg Take 120 [facility] ne 0.1 5-01 mL by ity of mg/mL LOW 00:00: mouth [place] [facility] 00 the Medical ON solution morning. Bran ch ipratropium 2023-0 Yes [id number] .5mg Inhale 2.5 [facility] 0.02 % 5-01 mL every 6 ity of nebulizer 00:00: (six) [place] solution 00 hours as Medical needed for Branch Wheezing or Shortness of Breath. dexamethaso 2023-0 Yes [id number] 12mg Take 120 [facility] ne 0.1 5-01 mL by ity of mg/mL LOW 00:00: mouth [place] [facility] 00 the Medical ON solution morning. Bran ch ipratropium 2023-0 Yes [id number] .5mg Inhale 2.5 [facility] 0.02 % 5-01 mL every 6 ity of nebulizer 00:00: (six) [place] solution 00 hours as Medical needed for Branch Wheezing or Shortness of Breath. dexamethaso 2023-0 Yes [id number] 12mg Take 120 [facility] ne 0.1 5-01 mL by ity of mg/mL LOW 00:00: mouth [place] [facility] 00 the Medical ON solution morning. Bran ch ipratropium 2023-0 Yes [id number] .5mg Inhale 2.5 [facility] 0.02 % 5-01 mL every 6 ity of nebulizer 00:00: (six) [place] solution 00 hours as Medical needed for Branch Wheezing or Shortness of Breath. ipratropium 2023-0 Yes [id number] .5mg Inhale 2.5 [facility] 0.02 % 5-01 mL every 6 ity of nebulizer 00:00: (six) [place] solution 00 hours as Medical needed for Branch Wheezing or Shortness of Breath. ipratropium 2023-0 Yes [id number] .5mg Inhale 2.5 [facility] 0.02 % 5-01 mL every 6 ity of nebulizer 00:00: (six) [place] solution 00 hours as Medical needed for Branch Wheezing or Shortness of Breath. ipratropium 2023-0 Yes [id number] .5mg Inhale 2.5 [facility] 0.02 % 5-01 mL every 6 ity of nebulizer 00:00: (six) [place] solution 00 hours as Medical needed for Branch Wheezing or Shortness of Breath. ipratropium 2023-0 Yes [id number] .5mg Inhale 2.5 [facility] 0.02 % 5-01 mL every 6 ity of nebulizer 00:00: (six) [place] solution 00 hours as Medical needed for Branch Wheezing or Shortness of Breath. ipratropium 2023-0 Yes [id number] .5mg Inhale 2.5 [facility] 0.02 % 5-01 mL every 6 ity of nebulizer 00:00: (six) [place] solution 00 hours as Medical needed for Branch Wheezing or Shortness of Breath. ipratropium 2023-0 Yes [id number] .5mg Inhale 2.5 [facility] 0.02 % 5-01 mL every 6 ity of nebulizer 00:00: (six) [place] solution 00 hours as Medical needed for Branch Wheezing or Shortness of Breath. ipratropium 2023-0 Yes [id number] .5mg Inhale 2.5 [facility] 0.02 % 5-01 mL every 6 ity of nebulizer 00:00: (six) [place] solution 00 hours as Medical needed for Branch Wheezing or Shortness of Breath. ipratropium 2023-0 Yes [id number] .5mg Inhale 2.5 [facility] 0.02 % 5-01 mL every 6 ity of nebulizer 00:00: (six) [place] solution 00 hours as Medical needed for Branch Wheezing or Shortness of Breath. ipratropium 2023-0 Yes [id number] .5mg Inhale 2.5 [facility] 0.02 % 5-01 mL every 6 ity of nebulizer 00:00: (six) [place] solution 00 hours as Medical needed for Branch Wheezing or Shortness of Breath. ipratropium 2023-0 Yes [id number] .5mg Inhale 2.5 [facility] 0.02 % 5-01 mL every 6 ity of nebulizer 00:00: (six) [place] solution 00 hours as Medical needed for Branch Wheezing or Shortness of Breath. ipratropium 2023-0 Yes [id number] .5mg Inhale 2.5 [facility] 0.02 % 5-01 mL every 6 ity of nebulizer 00:00: (six) [place] solution 00 hours as Medical needed for Branch Wheezing or Shortness of Breath. ipratropium 2023-0 Yes [id number] .5mg Inhale 2.5 [facility] 0.02 % 5-01 mL every 6 ity of nebulizer 00:00: (six) [place] solution 00 hours as Medical needed for Branch Wheezing or Shortness of Breath. ipratropium 2023-0 Yes [id number] .5mg Inhale 2.5 [facility] 0.02 % 5-01 mL every 6 ity of nebulizer 00:00: (six) [place] solution 00 hours as Medical needed for Branch Wheezing or Shortness of Breath. ipratropium 2023-0 Yes [id number] .5mg Inhale 2.5 [facility] 0.02 % 5-01 mL every 6 ity of nebulizer 00:00: (six) [place] solution 00 hours as Medical needed for Branch Wheezing or Shortness of Breath. ipratropium 2023-0 Yes [id number] .5mg Inhale 2.5 [facility] 0.02 % 5-01 mL every 6 ity of nebulizer 00:00: (six) [place] solution 00 hours as Medical needed for Branch Wheezing or Shortness of Breath. ipratropium 2023-0 Yes [id number] .5mg Inhale 2.5 [facility] 0.02 % 5-01 mL every 6 ity of nebulizer 00:00: (six) [place] solution 00 hours as Medical needed for Branch Wheezing or Shortness of Breath. ipratropium 2023-0 Yes [id number] .5mg Inhale 2.5 [facility] 0.02 % 5-01 mL every 6 ity of nebulizer 00:00: (six) [place] solution 00 hours as Medical needed for Branch Wheezing or Shortness of Breath. ipratropium 2023-0 Yes [id number] .5mg Inhale 2.5 [facility] 0.02 % 5-01 mL every 6 ity of nebulizer 00:00: (six) [place] solution 00 hours as Medical needed for Branch Wheezing or Shortness of Breath. ipratropium 2023-0 Yes [id number] .5mg Inhale 2.5 [facility] 0.02 % 5-01 mL every 6 ity of nebulizer 00:00: (six) [place] solution 00 hours as Medical needed for Branch Wheezing or Shortness of Breath. ipratropium 2023-0 Yes [id number] .5mg Inhale 2.5 [facility] 0.02 % 5-01 mL every 6 ity of nebulizer 00:00: (six) [place] solution 00 hours as Medical needed for Branch Wheezing or Shortness of Breath. ipratropium 2023-0 Yes [id number] .5mg Inhale 2.5 [facility] 0.02 % 5-01 mL every 6 ity of nebulizer 00:00: (six) [place] solution 00 hours as Medical needed for Branch Wheezing or Shortness of Breath. ipratropium 2023-0 Yes [id number] .5mg Inhale 2.5 [facility] 0.02 % 5-01 mL every 6 ity of nebulizer 00:00: (six) [place] solution 00 hours as Medical needed for Branch Wheezing or Shortness of Breath. ipratropium 2023-0 Yes [id number] .5mg Inhale 2.5 [facility] 0.02 % 5-01 mL every 6 ity of nebulizer 00:00: (six) [place] solution 00 hours as Medical needed for Branch Wheezing or Shortness of Breath. ipratropium 2023-0 Yes [id number] .5mg Inhale 2.5 [facility] 0.02 % 5-01 mL every 6 ity of nebulizer 00:00: (six) [place] solution 00 hours as Medical needed for Branch Wheezing or Shortness of Breath. ipratropium 2023-0 Yes [id number] .5mg Inhale 2.5 [facility] 0.02 % 5-01 mL every 6 ity of nebulizer 00:00: (six) [place] solution 00 hours as Medical needed for Branch Wheezing or Shortness of Breath. ipratropium 2023-0 Yes [id number] .5mg Inhale 2.5 [facility] 0.02 % 5-01 mL every 6 ity of nebulizer 00:00: (six) [place] solution 00 hours as Medical needed for Branch Wheezing or Shortness of Breath. ipratropium 2023-0 Yes [id number] .5mg Inhale 2.5 [facility] 0.02 % 5-01 mL every 6 ity of nebulizer 00:00: (six) [place] solution 00 hours as Medical needed for Branch Wheezing or Shortness of Breath. ipratropium 2023-0 Yes [id number] .5mg Inhale 2.5 [facility] 0.02 % 5-01 mL every 6 ity of nebulizer 00:00: (six) [place] solution 00 hours as Medical needed for Branch Wheezing or Shortness of Breath. ipratropium 2023-0 Yes [id number] .5mg Inhale 2.5 [facility] 0.02 % 5-01 mL every 6 ity of nebulizer 00:00: (six) [place] solution 00 hours as Medical needed for Branch Wheezing or Shortness of Breath. ipratropium 2023-0 Yes [id number] .5mg Inhale 2.5 [facility] 0.02 % 5-01 mL every 6 ity of nebulizer 00:00: (six) [place] solution 00 hours as Medical needed for Branch Wheezing or Shortness of Breath. ipratropium 2023-0 Yes [id number] .5mg Inhale 2.5 [facility] 0.02 % 5-01 mL every 6 ity of nebulizer 00:00: (six) [place] solution 00 hours as Medical needed for Branch Wheezing or Shortness of Breath. ipratropium 2023-0 Yes [id number] .5mg Inhale 2.5 [facility] 0.02 % 5-01 mL every 6 ity of nebulizer 00:00: (six) [place] solution 00 hours as Medical needed for Branch Wheezing or Shortness of Breath. ipratropium 2023-0 Yes [id number] .5mg Inhale 2.5 [facility] 0.02 % 5-01 mL every 6 ity of nebulizer 00:00: (six) [place] solution 00 hours as Medical needed for Branch Wheezing or Shortness of Breath. ipratropium 2023-0 Yes [id number] .5mg Inhale 2.5 [facility] 0.02 % 5-01 mL every 6 ity of nebulizer 00:00: (six) [place] solution 00 hours as Medical needed for Branch Wheezing or Shortness of Breath. ipratropium 2023-0 Yes [id number] .5mg Inhale 2.5 [facility] 0.02 % 5-01 mL every 6 ity of nebulizer 00:00: (six) [place] solution 00 hours as Medical needed for Branch Wheezing or Shortness of Breath. ipratropium 2023-0 Yes [id number] .5mg Inhale 2.5 [facility] 0.02 % 5-01 mL every 6 ity of nebulizer 00:00: (six) [place] solution 00 hours as Medical needed for Branch Wheezing or Shortness of Breath. ipratropium 2023-0 Yes [id number] .5mg Inhale 2.5 [facility] 0.02 % 5-01 mL every 6 ity of nebulizer 00:00: (six) [place] solution 00 hours as Medical needed for Branch Wheezing or Shortness of Breath. ipratropium 2023-0 Yes [id number] .5mg Inhale 2.5 [facility] 0.02 % 5-01 mL every 6 ity of nebulizer 00:00: (six) [place] solution 00 hours as Medical needed for Branch Wheezing or Shortness of Breath. ipratropium 2023-0 Yes [id number] .5mg Inhale 2.5 [facility] 0.02 % 5-01 mL every 6 ity of nebulizer 00:00: (six) [place] solution 00 hours as Medical needed for Branch Wheezing or Shortness of Breath. ipratropium 2023-0 Yes [id number] .5mg Inhale 2.5 [facility] 0.02 % 5-01 mL every 6 ity of nebulizer 00:00: (six) [place] solution 00 hours as Medical needed for Branch Wheezing or Shortness of Breath. ipratropium 2023-0 Yes [id number] .5mg Inhale 2.5 [facility] 0.02 % 5-01 mL every 6 ity of nebulizer 00:00: (six) [place] solution 00 hours as Medical needed for Branch Wheezing or Shortness of Breath. ipratropium 2023-0 Yes [id number] .5mg Inhale 2.5 [facility] 0.02 % 5-01 mL every 6 ity of nebulizer 00:00: (six) [place] solution 00 hours as Medical needed for Branch Wheezing or Shortness of Breath. ipratropium 2023-0 Yes [id number] .5mg Inhale 2.5 [facility] 0.02 % 5-01 mL every 6 ity of nebulizer 00:00: (six) [place] solution 00 hours as Medical needed for Branch Wheezing or Shortness of Breath. ipratropium 2023-0 Yes [id number] .5mg Inhale 2.5 [facility] 0.02 % 5-01 mL every 6 ity of nebulizer 00:00: (six) [place] solution 00 hours as Medical needed for Branch Wheezing or Shortness of Breath. ipratropium 2023-0 Yes [id number] .5mg Inhale 2.5 [facility] 0.02 % 5-01 mL every 6 ity of nebulizer 00:00: (six) [place] solution 00 hours as Medical needed for Branch Wheezing or Shortness of Breath. ipratropium 2023-0 Yes [id number] .5mg Inhale 2.5 [facility] 0.02 % 5-01 mL every 6 ity of nebulizer 00:00: (six) [place] solution 00 hours as Medical needed for Branch Wheezing or Shortness of Breath. ipratropium 2023-0 Yes [id number] .5mg Inhale 2.5 [facility] 0.02 % 5-01 mL every 6 ity of nebulizer 00:00: (six) [place] solution 00 hours as Medical needed for Branch Wheezing or Shortness of Breath. ipratropium 2023-0 Yes [id number] .5mg Inhale 2.5 [facility] 0.02 % 5-01 mL every 6 ity of nebulizer 00:00: (six) [place] solution 00 hours as Medical needed for Branch Wheezing or Shortness of Breath. ipratropium 2023-0 Yes [id number] .5mg Inhale 2.5 [facility] 0.02 % 5-01 mL every 6 ity of nebulizer 00:00: (six) [place] solution 00 hours as Medical needed for Branch Wheezing or Shortness of Breath. ipratropium 2023-0 Yes [id number] .5mg Inhale 2.5 [facility] 0.02 % 5-01 mL every 6 ity of nebulizer 00:00: (six) [place] solution 00 hours as Medical needed for Branch Wheezing or Shortness of Breath. ipratropium 2023-0 Yes [id number] .5mg Inhale 2.5 [facility] 0.02 % 5-01 mL every 6 ity of nebulizer 00:00: (six) [place] solution 00 hours as Medical needed for Branch Wheezing or Shortness of Breath. ipratropium 2023-0 Yes [id number] .5mg Inhale 2.5 [facility] 0.02 % 5-01 mL every 6 ity of nebulizer 00:00: (six) [place] solution 00 hours as Medical needed for Branch Wheezing or Shortness of Breath. ipratropium 2023-0 Yes [id number] .5mg Inhale 2.5 [facility] 0.02 % 5-01 mL every 6 ity of nebulizer 00:00: (six) [place] solution 00 hours as Medical needed for Branch Wheezing or Shortness of Breath. ipratropium 2023-0 Yes [id number] .5mg Inhale 2.5 [facility] 0.02 % 5-01 mL every 6 ity of nebulizer 00:00: (six) [place] solution 00 hours as Medical needed for Branch Wheezing or Shortness of Breath. ipratropium 2023-0 Yes [id number] .5mg Inhale 2.5 [facility] 0.02 % 5-01 mL every 6 ity of nebulizer 00:00: (six) [place] solution 00 hours as Medical needed for Branch Wheezing or Shortness of Breath. ipratropium 2023-0 Yes [id number] .5mg Inhale 2.5 [facility] 0.02 % 5-01 mL every 6 ity of nebulizer 00:00: (six) [place] solution 00 hours as Medical needed for Branch Wheezing or Shortness of Breath. ipratropium 2023-0 Yes [id number] .5mg Inhale 2.5 [facility] 0.02 % 5-01 mL every 6 ity of nebulizer 00:00: (six) [place] solution 00 hours as Medical needed for Branch Wheezing or Shortness of Breath. ipratropium 2023-0 Yes [id number] .5mg Inhale 2.5 [facility] 0.02 % 5-01 mL every 6 ity of nebulizer 00:00: (six) [place] solution 00 hours as Medical needed for Branch Wheezing or Shortness of Breath. ipratropium 2023-0 Yes [id number] .5mg Inhale 2.5 [facility] 0.02 % 5-01 mL every 6 ity of nebulizer 00:00: (six) [place] solution 00 hours as Medical needed for Branch Wheezing or Shortness of Breath. ipratropium 2023-0 Yes [id number] .5mg Inhale 2.5 [facility] 0.02 % 5-01 mL every 6 ity of nebulizer 00:00: (six) [place] solution 00 hours as Medical needed for Branch Wheezing or Shortness of Breath. ipratropium 2023-0 Yes [id number] .5mg Inhale 2.5 [facility] 0.02 % 5-01 mL every 6 ity of nebulizer 00:00: (six) [place] solution 00 hours as Medical needed for Branch Wheezing or Shortness of Breath. ipratropium 2023-0 Yes [id number] .5mg Inhale 2.5 [facility] 0.02 % 5-01 mL every 6 ity of nebulizer 00:00: (six) [place] solution 00 hours as Medical needed for Branch Wheezing or Shortness of Breath. ipratropium 2023-0 Yes [id number] .5mg Inhale 2.5 [facility] 0.02 % 5-01 mL every 6 ity of nebulizer 00:00: (six) [place] solution 00 hours as Medical needed for Branch Wheezing or Shortness of Breath. ipratropium 2023-0 Yes [id number] .5mg Inhale 2.5 [facility] 0.02 % 5-01 mL every 6 ity of nebulizer 00:00: (six) [place] solution 00 hours as Medical needed for Branch Wheezing or Shortness of Breath. ipratropium 2023-0 Yes [id number] .5mg Inhale 2.5 [facility] 0.02 % 5-01 mL every 6 ity of nebulizer 00:00: (six) [place] solution 00 hours as Medical needed for Branch Wheezing or Shortness of Breath. ipratropium 2023-0 Yes [id number] .5mg Inhale 2.5 [facility] 0.02 % 5-01 mL every 6 ity of nebulizer 00:00: (six) [place] solution 00 hours as Medical needed for Branch Wheezing or Shortness of Breath. ipratropium 2023-0 Yes [id number] .5mg Inhale 2.5 [facility] 0.02 % 5-01 mL every 6 ity of nebulizer 00:00: (six) [place] solution 00 hours as Medical needed for Branch Wheezing or Shortness of Breath. ipratropium 2023-0 Yes [id number] .5mg Inhale 2.5 [facility] 0.02 % 5-01 mL every 6 ity of nebulizer 00:00: (six) [place] solution 00 hours as Medical needed for Branch Wheezing or Shortness of Breath. ipratropium 2023-0 Yes [id number] .5mg Inhale 2.5 [facility] 0.02 % 5-01 mL every 6 ity of nebulizer 00:00: (six) [place] solution 00 hours as Medical needed for Branch Wheezing or Shortness of Breath. ipratropium 2023-0 Yes [id number] .5mg Inhale 2.5 [facility] 0.02 % 5-01 mL every 6 ity of nebulizer 00:00: (six) [place] solution 00 hours as Medical needed for Branch Wheezing or Shortness of Breath. ipratropium 2023-0 Yes [id number] .5mg Inhale 2.5 [facility] 0.02 % 5-01 mL every 6 ity of nebulizer 00:00: (six) [place] solution 00 hours as Medical needed for Branch Wheezing or Shortness of Breath. ipratropium 2023-0 Yes [id number] .5mg Inhale 2.5 [facility] 0.02 % 5-01 mL every 6 ity of nebulizer 00:00: (six) [place] solution 00 hours as Medical needed for Branch Wheezing or Shortness of Breath. ipratropium 2023-0 Yes [id number] .5mg Inhale 2.5 [facility] 0.02 % 5-01 mL every 6 ity of nebulizer 00:00: (six) [place] solution 00 hours as Medical needed for Branch Wheezing or Shortness of Breath. ipratropium 2023-0 Yes [id number] .5mg Inhale 2.5 [facility] 0.02 % 5-01 mL every 6 ity of nebulizer 00:00: (six) [place] solution 00 hours as Medical needed for Branch Wheezing or Shortness of Breath. ipratropium 2023-0 Yes [id number] .5mg Inhale 2.5 [facility] 0.02 % 5-01 mL every 6 ity of nebulizer 00:00: (six) [place] solution 00 hours as Medical needed for Branch Wheezing or Shortness of Breath. dexamethaso 2022-0 2022- No [id number] 12mg Take 120 [facility] ne 0.1 5-01 06-05 mL by ity of mg/mL LOW 00:00: 00:00 mouth in [place] as [facility] 00 :00 the Medical ON solution morning. Bran ch dexamethaso 0 2022- No [id number] 12mg Take 120 [facility] ne 0.1 5-01 06-05 mL by ity of mg/mL LOW 00:00: 00:00 mouth in [place] as [facility]AT[facility] 00 :00 the Medical ON solution morning. Bran ch dexamethaso 0 2022- No [id number] 12mg Take 120 [facility] ne 0.1 5-01 [...] of Therapy: Other (see Comments) benzonatate Yes [id number] 100mg Take 1 [facility] 100 mg 11-12 capsule by ity of capsule 00:00: mouth 3 [place] 00 (three) Medical times Branch daily as needed for Cough. azithromyci 2022- No [id number] 250mg Take 6.25 [facility] n 11-12 05-02 mL by ity of (ZITHROMAX) 00:00: 04:59 mouth in [place] 200 mg/5 mL 00 :00 the Medical suspension morning Branch for 4 days. azithromyci 0 2022- No [id number] 250mg Take 6.25 [facility] n 11-12 05-02 mL by ity of (ZITHROMAX) 00:00: 04:59 mouth in [place] 200 mg/5 mL 00 :00 the Medical suspension morning Branch for 4 days. azithromyci 0 2022- No [id number] 250mg Take 6.25 [facility] n 11-12 05-02 mL by ity of (ZITHROMAX) 00:00: 04:59 mouth in [place] 200 mg/5 mL 00 :00 the Medical suspension morning Branch for 4 days. benzonatate 2022- No [id number] 100mg Take 1 [facility] 100 mg 11-12-01 capsule by ity of capsule 00:00: 00:00 mouth 3 [place] 00 :00 (three) Medical times [place] daily as needed for Cough. benzonatate 2023-0 2023- No [id number] 100mg Take 1 [facility] 100 mg 4-27 05-01 capsule by ity of capsule 00:00: 00:00 mouth 3 [place] 00 :00 (three) Medical times [place] daily as needed for Cough. omeprazole 2023-0 Yes 20mg Take 1 [facility] rs 20 mg 4-24 capsule by ity of capsule 00:00: mouth in [place] [address] the Medical morning Branch and 1 capsule in the evening. omeprazole 2023-0 Yes 20mg Take 1 [facility] rs 20 mg 4-24 capsule by ity of capsule 00:00: mouth in [place] [address] the Medical morning Branch and 1 capsule in the evening. omeprazole 2023-0 Yes 20mg Take 1 [facility] rs 20 mg 4-24 capsule by ity of capsule 00:00: mouth in [place] [address] the Medical morning [place] and 1 capsule in the evening. omeprazole 2023-0 Yes 20mg Take 1 [facility] 20 mg 4-24 capsule by ity of capsule 00:00: mouth in [place] [address] the Medical morning [place] and 1 capsule in the evening. omeprazole 2023-0 Yes 20mg Take 1 [facility] 20 mg 4-24 capsule by ity of capsule 00:00: mouth in [place] [address] the Medical morning Branch and 1 capsule in the evening. omeprazole 2023-0 Yes 20mg Take 1 [facility] 20 mg 4-24 capsule by ity of capsule 00:00: mouth in [place] [address] the Medical morning Branch and 1 capsule in the evening. omeprazole 2023-0 Yes 20mg Take 1 [facility] 20 mg 4-24 capsule by ity of capsule 00:00: mouth in [place] [address] the Medical morning Branch and 1 capsule in the evening. omeprazole 2023-0 Yes 20mg Take 1 [facility] 20 mg 4-24 capsule by ity of capsule 00:00: mouth in [place] [address] the Medical morning [place] and 1 capsule in the evening. omeprazole 2023-0 Yes 20mg Take 1 [facility] rs 20 mg 4-24 capsule by ity of capsule 00:00: mouth in [place] [address] the Medical morning [place] and 1 capsule in the evening. omeprazole 2023-0 Yes 20mg Take 1 [facility] rs 20 mg 4-24 capsule by ity of capsule 00:00: mouth in [place] 00 the Medical morning Branch and 1 capsule in the evening. omeprazole 2023-0 Yes 20mg Take 1 [facility] rs 20 mg 4-24 capsule by ity of capsule 00:00: mouth in [place] 00 the Medical morning Branch and 1 capsule in the evening. omeprazole 2023-0 Yes 20mg Take 1 [facility] rs 20 mg 4-24 capsule by ity of capsule 00:00: mouth in [place] 00 the Medical morning Branch and 1 capsule in the evening. omeprazole 2023-0 Yes 20mg Take 1 [facility] rs 20 mg 4-24 capsule by ity of capsule 00:00: mouth in [place] 00 the Medical morning Branch and 1 capsule in the evening. omeprazole 2023-0 Yes 20mg Take 1 [facility] rs 20 mg 4-24 capsule by ity of capsule 00:00: mouth in [place] [address] the Medical morning Branch and 1 capsule in the evening. omeprazole 2023-0 Yes 20mg Take 1 [facility] 20 mg 4-24 capsule by ity of capsule 00:00: mouth in [place] [address] the Medical morning Branch and 1 capsule in the evening. omeprazole 2023-0 Yes 20mg Take 1 [facility] rs 20 mg 4-24 capsule by ity of capsule 00:00: mouth in [place] [address] the Medical morning Branch and 1 capsule in the evening. omeprazole 2023-0 Yes 20mg Take 1 [facility] 20 mg 4-24 capsule by ity of capsule 00:00: mouth in [place] [address] the Medical morning Branch and 1 capsule in the evening. omeprazole 2023-0 Yes 20mg Take 1 [facility] 20 mg 4-24 capsule by ity of capsule 00:00: mouth in [place] [address] the Medical morning Branch and 1 capsule in the evening. omeprazole 2023-0 Yes 20mg Take 1 [facility] 20 mg 4-24 capsule by ity of capsule 00:00: mouth in [place] [address] the Medical morning Branch and 1 capsule in the evening. omeprazole 2023-0 Yes 20mg Take 1 [facility] 20 mg 4-24 capsule by ity of capsule 00:00: mouth in [place] [address] the Medical morning Branch and 1 capsule in the evening. omeprazole 2023-0 Yes 20mg Take 1 [facility] 20 mg 4-24 capsule by ity of capsule 00:00: mouth in [place] [address] the Medical morning Branch and 1 capsule in the evening. omeprazole 2023-0 Yes 20mg Take 1 [facility] 20 mg 4-24 capsule by ity of capsule 00:00: mouth in [place] [address] the Medical morning Branch and 1 capsule in the evening. omeprazole 2023-0 Yes 20mg Take 1 [facility] 20 mg 4-24 capsule by ity of capsule 00:00: mouth in [place] [address] the Medical morning Branch and 1 capsule in the evening. omeprazole 2023-0 Yes 20mg Take 1 [facility] 20 mg 4-24 capsule by ity of capsule 00:00: mouth in [place] [address] the Medical morning Branch and 1 capsule in the evening. omeprazole 2023-0 Yes 20mg Take 1 [facility] 20 mg 4-24 capsule by ity of capsule 00:00: mouth in [place] [address] the Medical morning Branch and 1 capsule in the evening. omeprazole 2023-0 Yes 20mg Take 1 [facility] rs 20 mg 4-24 capsule by ity of capsule 00:00: mouth in [place] [address] the Medical morning [place] and 1 capsule in the evening. omeprazole 2023-0 Yes 20mg Take 1 [facility] 20 mg 4-24 capsule by ity of capsule 00:00: mouth in [place] [address] the Medical morning [place] and 1 capsule in the evening. omeprazole 2023-0 Yes 20mg Take 1 [facility] rs 20 mg 4-24 capsule by ity of capsule 00:00: mouth in [place] [address] the Medical morning [place] and 1 capsule in the evening. omeprazole 2023-0 Yes 20mg Take 1 [facility] rs 20 mg 4-24 capsule by ity of capsule 00:00: mouth in [place] [address] the Medical morning Branch and 1 capsule in the evening. omeprazole 2023-0 Yes 20mg Take 1 [facility] rs 20 mg 4-24 capsule by ity of capsule 00:00: mouth in [place] [address] the Medical morning Branch and 1 capsule in the evening. omeprazole 2023-0 Yes 20mg Take 1 [facility] 20 mg 4-24 capsule by ity of capsule 00:00: mouth in [place] [address] the Medical morning Branch and 1 capsule in the evening. omeprazole 2023-0 Yes 20mg Take 1 [facility] rs 20 mg 4-24 capsule by ity of capsule 00:00: mouth in [place] [address] the Medical morning [place] and 1 capsule in the evening. omeprazole 2023-0 Yes 20mg Take 1 [facility] rs 20 mg 4-24 capsule by ity of capsule 00:00: mouth in [place] [address] the Medical morning Branch and 1 capsule in the evening. omeprazole 2023-0 Yes 20mg Take 1 [facility] 20 mg 4-24 capsule by ity of capsule 00:00: mouth in [place] [address] the Medical morning Branch and 1 capsule in the evening. omeprazole 2023-0 Yes 20mg Take 1 [facility] rs 20 mg 4-24 capsule by ity of capsule 00:00: mouth in [place] [address] the Medical morning Branch and 1 capsule in the evening. omeprazole 2023-0 Yes 20mg Take 1 [facility] 20 mg 4-24 capsule by ity of capsule 00:00: mouth in [place] [address] the Medical morning Branch and 1 capsule in the evening. omeprazole 2023-0 Yes 20mg Take 1 [facility] 20 mg 4-24 capsule by ity of capsule 00:00: mouth in [place] [address] the Medical morning Branch and 1 capsule in the evening. omeprazole 2023-0 Yes 20mg Take 1 [facility] 20 mg 4-24 capsule by ity of capsule 00:00: mouth in [place] [address] the Medical morning Branch and 1 capsule in the evening. omeprazole 2023-0 Yes 20mg Take 1 [facility] rs 20 mg 4-24 capsule by ity of capsule 00:00: mouth in [place] [address] the Medical morning [place] and 1 capsule in the evening. omeprazole 2023-0 Yes 20mg Take 1 [facility] rs 20 mg 4-24 capsule by ity of capsule 00:00: mouth in [place] [address] the Medical morning [place] and 1 capsule in the evening. omeprazole 2023-0 Yes 20mg Take 1 [facility] rs 20 mg 4-24 capsule by ity of capsule 00:00: mouth in [place] [address] the Medical morning Branch and 1 capsule in the evening. omeprazole 2023-0 Yes 20mg Take 1 [facility] rs 20 mg 4-24 capsule by ity of capsule 00:00: mouth in [place] [address] the Medical morning Branch and 1 capsule in the evening. omeprazole 2023-0 Yes 20mg Take 1 [facility] rs 20 mg 4-24 capsule by ity of capsule 00:00: mouth in [address] Medical morning [place] and 1 capsule in the evening. omeprazole 2023-0 Yes 20mg Take 1 [facility] rs 20 mg 4-24 capsule by ity of capsule 00:00: mouth in [place] [address] the Medical morning Branch and 1 capsule in the evening. omeprazole 2023-0 Yes 20mg Take 1 [facility] rs 20 mg 4-24 capsule by ity of capsule 00:00: mouth in [place] 00 the Medical morning Branch and 1 capsule in the evening. omeprazole 2023-0 Yes 20mg Take 1 [facility] rs 20 mg 4-24 capsule by ity of capsule 00:00: mouth in [place] [address] the Medical morning Branch and 1 capsule in the evening. omeprazole 2023-0 Yes 20mg Take 1 [facility] rs 20 mg 4-24 capsule by ity of capsule 00:00: mouth in [place] [address] the Medical morning Branch and 1 capsule in the evening. omeprazole 2023-0 Yes 20mg Take 1 [facility] rs 20 mg 4-24 capsule by ity of capsule 00:00: mouth in [place] [address] the Medical morning Branch and 1 capsule in the evening. omeprazole 2023-0 Yes 20mg Take 1 [facility] rs 20 mg 4-24 capsule by ity of capsule 00:00: mouth in [place] [address] the Medical morning Branch and 1 capsule in the evening. omeprazole 2023-0 Yes 20mg Take 1 [facility] rs 20 mg 4-24 capsule by ity of capsule 00:00: mouth in [place] [address] the Medical morning Branch and 1 capsule in the evening. omeprazole 2023-0 Yes 20mg Take 1 [facility] rs 20 mg 4-24 capsule by ity of capsule 00:00: mouth in [place] [address] the Medical morning Branch and 1 capsule in the evening. omeprazole 2023-0 Yes 20mg Take 1 [facility] rs 20 mg 4-24 capsule by ity of capsule 00:00: mouth in [place] [address] the Medical morning Branch and 1 capsule in the evening. omeprazole 2023-0 Yes 20mg Take 1 [facility] rs 20 mg 4-24 capsule by ity of capsule 00:00: mouth in [place] [address] the Medical morning Branch and 1 capsule in the evening. diazePAM 2 2023-0 Yes 2mg Take 1 [facility] rs mg tablet 4-21 tablet by ity o f 00:00: mouth in [place] [address] the Medical morning Branch and 1 tablet in the evening. diazePAM 2 2023-0 Yes 2mg Take 1 [facility] rs mg tablet 4-21 tablet by ity o f 00:00: mouth in [place] [address] the Medical morning Branch and 1 tablet in the evening. diazePAM 2 3-0 Yes 2mg Take 1 [facility] rs mg tablet 4-21 tablet by ity o f 00:00: mouth in [place] 00 the Medical morning Branch and 1 tablet in the evening. diazePAM 2 3-0 Yes 2mg Take 1 [facility] rs mg tablet 4-21 tablet by ity o f 00:00: mouth in [place] 00 the Medical morning Branch and 1 tablet in the evening. diazePAM 2 3-0 Yes 2mg Take 1 [facility] rs mg tablet 4-21 tablet by ity o f 00:00: mouth in [place] 00 the Medical morning Branch and 1 tablet in the evening. diazePAM 2 2022-0 Yes 2mg Take 1 [facility] rs mg tablet 4-21 tablet by ity o f 00:00: mouth in [place] 00 the Medical morning Branch and 1 tablet in the evening. diazePAM 2 3-0 Yes 2mg Take 1 [facility] rs mg tablet 4-21 tablet by ity o f 00:00: mouth in [place] 00 the Medical morning Branch and 1 tablet in the evening. diazePAM 2 2022-0 Yes 2mg Take 1 [facility] rs mg tablet 4-21 tablet by ity o f 00:00: mouth in [place] 00 the Medical morning Branch and 1 tablet in the evening. diazePAM 2 3-0 Yes 2mg Take 1 [facility] rs mg tablet 4-21 tablet by ity o f 00:00: mouth in [place] 00 the Medical morning Branch and 1 tablet in the evening. diazePAM 2 3-0 Yes 2mg Take 1 [facility] rs mg tablet 4-21 tablet by ity o f 00:00: mouth in [place] 00 the Medical morning Branch and 1 tablet in the evening. diazePAM 2 3-0 Yes 2mg Take 1 [facility] rs mg tablet 4-21 tablet by ity o f 00:00: mouth in [place] 00 the Medical morning Branch and 1 tablet in the evening. diazePAM 2 3-0 Yes 2mg Take 1 [facility] rs mg tablet 4-21 tablet by ity o f 00:00: mouth in [place] 00 the Medical morning Branch and 1 tablet in the evening. diazePAM 2 3-0 Yes 2mg Take 1 [facility] rs mg tablet 4-21 tablet by ity o f 00:00: mouth in [place] 00 the Medical morning Branch and 1 tablet in the evening. diazePAM 2 3-0 Yes 2mg Take 1 [facility] rs mg tablet 4-21 tablet by ity o f 00:00: mouth in [place] 00 the Medical morning Branch and 1 tablet in the evening. diazePAM 2 3-0 Yes 2mg Take 1 [facility] rs mg tablet 4-21 tablet by ity o f 00:00: mouth in [place] 00 the Medical morning Branch and 1 tablet in the evening. diazePAM 2 3-0 Yes 2mg Take 1 [facility] rs mg tablet 4-21 tablet by ity o f 00:00: mouth in [place] 00 the Medical morning Branch and 1 tablet in the evening. diazePAM 2 2022-0 Yes 2mg Take 1 [facility] rs mg tablet 4-21 tablet by ity o f 00:00: mouth in [place] 00 the Medical morning Branch and 1 tablet in the evening. diazePAM 2 3-0 Yes 2mg Take 1 [facility] rs mg tablet 4-21 tablet by ity o f 00:00: mouth in [place] 00 the Medical morning Branch and 1 tablet in the evening. diazePAM 2 2022-0 Yes 2mg Take 1 [facility] rs mg tablet 4-21 tablet by ity o f 00:00: mouth in [place] 00 the Medical morning Branch and 1 tablet in the evening. diazePAM 2 3-0 Yes 2mg Take 1 [facility] rs mg tablet 4-21 tablet by ity o f 00:00: mouth in [place] 00 the Medical morning Branch and 1 tablet in the evening. diazePAM 2 3-0 Yes 2mg Take 1 [facility] rs mg tablet 4-21 tablet by ity o f 00:00: mouth in [place] 00 the Medical morning Branch and 1 tablet in the evening. diazePAM 2 3-0 Yes 2mg Take 1 [facility] rs mg tablet 4-21 tablet by ity o f 00:00: mouth in [place] 00 the Medical morning Branch and 1 tablet in the evening. diazePAM 2 3-0 Yes 2mg Take 1 [facility] rs mg tablet 4-21 tablet by ity o f 00:00: mouth in [place] 00 the Medical morning Branch and 1 tablet in the evening. diazePAM 2 3-0 Yes 2mg Take 1 [facility] rs mg tablet 4-21 tablet by ity o f 00:00: mouth in [place] 00 the Medical morning Branch and 1 tablet in the evening. diazePAM 2 3-0 Yes 2mg Take 1 [facility] rs mg tablet 4-21 tablet by ity o f 00:00: mouth in [place] 00 the Medical morning Branch and 1 tablet in the evening. diazePAM 2 2022-0 Yes 2mg Take 1 [facility] rs mg tablet 4-21 tablet by ity o f 00:00: mouth in [place] 00 the Medical morning Branch and 1 tablet in the evening. diazePAM 2 2022-0 Yes 2mg Take 1 [facility] rs mg tablet 4-21 tablet by ity o f 00:00: mouth in [place] 00 the Medical morning Branch and 1 tablet in the evening. diazePAM 2 2022-0 Yes 2mg Take 1 [facility] rs mg tablet 4-21 tablet by ity o f 00:00: mouth in [place] 00 the Medical morning Branch and 1 tablet in the evening. diazePAM 2 2022-0 Yes 2mg Take 1 [facility] rs mg tablet 4-21 tablet by ity o f 00:00: mouth in [place] 00 the Medical morning Branch and 1 tablet in the evening. diazePAM 2 2022-0 Yes 2mg Take 1 [facility] rs mg tablet 4-21 tablet by ity o f 00:00: mouth in [place] 00 the Medical morning Branch and 1 tablet in the evening. diazePAM 2 2022-0 Yes 2mg Take 1 [facility] rs mg tablet 4-21 tablet by ity o f 00:00: mouth in [place] 00 the Medical morning Branch and 1 tablet in the evening. diazePAM 2 2022-0 Yes 2mg Take 1 [facility] rs mg tablet 4-21 tablet by ity o f 00:00: mouth in [place] 00 the Medical morning Branch and 1 tablet in the evening. diazePAM 2 3-0 Yes 2mg Take 1 [facility] rs mg tablet 4-21 tablet by ity o f 00:00: mouth in [place] 00 the Medical morning Branch and 1 tablet in the evening. diazePAM 2 3-0 Yes 2mg Take 1 [facility] rs mg tablet 4-21 tablet by ity o f 00:00: mouth in [place] 00 the Medical morning Branch and 1 tablet in the evening. diazePAM 2 3-0 Yes 2mg Take 1 [facility] rs mg tablet 4-21 tablet by ity o f 00:00: mouth in [place] 00 the Medical morning Branch and 1 tablet in the evening. diazePAM 2 3-0 Yes 2mg Take 1 [facility] rs mg tablet 4-21 tablet by ity o f 00:00: mouth in [place] 00 the Medical morning Branch and 1 tablet in the evening. diazePAM 2 2022-0 Yes 2mg Take 1 [facility] rs mg tablet 4-21 tablet by ity o f 00:00: mouth in [place] 00 the Medical morning Branch and 1 tablet in the evening. diazePAM 2 3-0 Yes 2mg Take 1 [facility] rs mg tablet 4-21 tablet by ity o f 00:00: mouth in [place] 00 the Medical morning Branch and 1 tablet in the evening. diazePAM 2 3-0 Yes 2mg Take 1 [facility] rs mg tablet 4-21 tablet by ity o f 00:00: mouth in [place] 00 the Medical morning Branch and 1 tablet in the evening. diazePAM 2 3-0 Yes 2mg Take 1 [facility] rs mg tablet 4-21 tablet by ity o f 00:00: mouth in [place] 00 the Medical morning Branch and 1 tablet in the evening. diazePAM 2 2022-0 Yes 2mg Take 1 [facility] rs mg tablet 4-21 tablet by ity o f 00:00: mouth in [place] 00 the Medical morning Branch and 1 tablet in the evening. diazePAM 2 2022-0 Yes 2mg Take 1 [facility] rs mg tablet 4-21 tablet by ity o f 00:00: mouth in [place] 00 the Medical morning Branch and 1 tablet in the evening. diazePAM 2 3-0 Yes 2mg Take 1 [facility] rs mg tablet 4-21 tablet by ity o f 00:00: mouth in [place] 00 the Medical morning Branch and 1 tablet in the evening. diazePAM 2 3-0 Yes 2mg Take 1 [facility] rs mg tablet 4-21 tablet by ity o f 00:00: mouth in [place] 00 the Medical morning Branch and 1 tablet in the evening. diazePAM 2 3-0 Yes 2mg Take 1 [facility] rs mg tablet 4-21 tablet by ity o f 00:00: mouth in [place] 00 the Medical morning Branch and 1 tablet in the evening. diazePAM 2 3-0 Yes 2mg Take 1 [facility] rs mg tablet 4-21 tablet by ity o f 00:00: mouth in [place] 00 the Medical morning Branch and 1 tablet in the evening. diazePAM 2 3-0 Yes 2mg Take 1 [facility] rs mg tablet 4-21 tablet by ity o f 00:00: mouth in [place] 00 the Medical morning Branch and 1 tablet in the evening. diazePAM 2 3-0 Yes 2mg Take 1 [facility] rs mg tablet 4-21 tablet by ity o f 00:00: mouth in [place] 00 the Medical morning Branch and 1 tablet in the evening. diazePAM 2 3-0 Yes 2mg Take 1 [facility] rs mg tablet 4-21 tablet by ity o f 00:00: mouth in [place] 00 the Medical morning Branch and 1 tablet in the evening. diazePAM 2 3-0 Yes 2mg Take 1 [facility] rs mg tablet 4-21 tablet by ity o f 00:00: mouth in [place] 00 the Medical morning Branch and 1 tablet in the evening. diazePAM 2 3-0 Yes 2mg Take 1 [facility] rs mg tablet 4-21 tablet by ity o f 00:00: mouth in [place] 00 the Medical morning Branch and 1 tablet in the evening. diazePAM 2 2022-0 Yes 2mg Take 1 [facility] rs mg tablet 4-21 tablet by ity o f 00:00: mouth in [place] 00 the Medical morning Branch and 1 tablet in the evening. diazePAM 2 3-0 Yes 2mg Take 1 [facility] rs mg tablet 4-21 tablet by ity o f 00:00: mouth in [place] 00 the Medical morning Branch and 1 tablet in the evening. diazePAM 2 3-0 Yes 2mg Take 1 [facility] rs mg tablet 4-21 tablet by ity o f 00:00: mouth in [place] 00 the Medical morning Branch and 1 tablet in the evening. diazePAM 2 3-0 Yes 2mg Take 1 [facility] rs mg tablet 4-21 tablet by ity o f 00:00: mouth in [place] 00 the Medical morning Branch and 1 tablet in the evening. diazePAM 2 3-0 Yes 2mg Take 1 [facility] rs mg tablet 4-21 tablet by ity o f 00:00: mouth in [place] 00 the Medical morning Branch and 1 tablet in the evening. diazePAM 2 3-0 Yes 2mg Take 1 [facility] rs mg tablet 4-21 tablet by ity o f 00:00: mouth in [place] 00 the Medical morning Branch and 1 tablet in the evening. diazePAM 2 3-0 Yes 2mg Take 1 [facility] rs mg tablet 4-21 tablet by ity o f 00:00: mouth in [place] 00 the Medical morning Branch and 1 tablet in the evening. diazePAM 2 3-0 Yes 2mg Take 1 [facility] rs mg tablet 4-21 tablet by ity o f 00:00: mouth in [place] 00 the Medical morning Branch and 1 tablet in the evening. diazePAM 2 3-0 Yes 2mg Take 1 [facility] rs mg tablet 4-21 tablet by ity o f 00:00: mouth in [place] 00 the Medical morning Branch and 1 tablet in the evening. diazePAM 2 3-0 Yes 2mg Take 1 [facility] rs mg tablet 4-21 tablet by ity o f 00:00: mouth in [place] 00 the Medical morning Branch and 1 tablet in the evening. diazePAM 2 3-0 Yes 2mg Take 1 [facility] rs mg tablet 4-21 tablet by ity o f 00:00: mouth in [place] 00 the Medical morning Branch and 1 tablet in the evening. diazePAM 2 2022-0 Yes 2mg Take 1 [facility] rs mg tablet 4-21 tablet by ity o f 00:00: mouth in [place] 00 the Medical morning Branch and 1 tablet in the evening. diazePAM 2 3-0 Yes 2mg Take 1 [facility] rs mg tablet 4-21 tablet by ity o f 00:00: mouth in [place] 00 the Medical morning Branch and 1 tablet in the evening. diazePAM 2 2022-0 Yes 2mg Take 1 [facility] rs mg tablet 4-21 tablet by ity o f 00:00: mouth in [place] 00 the Medical morning Branch and 1 tablet in the evening. diazePAM 2 3-0 Yes 2mg Take 1 [facility] rs mg tablet 4-21 tablet by ity o f 00:00: mouth in [place] 00 the Medical morning Branch and 1 tablet in the evening. diazePAM 2 3-0 Yes 2mg Take 1 [facility] rs mg tablet 4-21 tablet by ity o f 00:00: mouth in [place] 00 the Medical morning Branch and 1 tablet in the evening. diazePAM 2 3-0 Yes 2mg Take 1 [facility] rs mg tablet 4-21 tablet by ity o f 00:00: mouth in [place] 00 the Medical morning Branch and 1 tablet in the evening. diazePAM 2 3-0 Yes 2mg Take 1 [facility] rs mg tablet 4-21 tablet by ity o f 00:00: mouth in [place] 00 the Medical morning Branch and 1 tablet in the evening. diazePAM 2 3-0 Yes 2mg Take 1 [facility] rs mg tablet 4-21 tablet by ity o f 00:00: mouth in [place] 00 the Medical morning Branch and 1 tablet in the evening. diazePAM 2 2023-0 Yes 2mg Take 1 [facility] rs mg tablet 4-21 tablet by ity o f 00:00: mouth in [place] 00 the Medical morning Branch and 1 tablet in the evening. diazePAM 2 2022-0 Yes 2mg Take 1 [facility] rs mg tablet 4-21 tablet by ity o f 00:00: mouth in [place] 00 the Medical morning Branch and 1 tablet in the evening. diazePAM 2 3-0 Yes 2mg Take 1 [facility] rs mg tablet 4-21 tablet by ity o f 00:00: mouth in [place] 00 the Medical morning Branch and 1 tablet in the evening. diazePAM 2 2022-0 Yes 2mg Take 1 [facility] rs mg tablet 4-21 tablet by ity o f 00:00: mouth in [place] 00 the Medical morning Branch and 1 tablet in the evening. diazePAM 2 3-0 Yes 2mg Take 1 [facility] rs mg tablet 4-21 tablet by ity o f 00:00: mouth in [place] 00 the Medical morning Branch and 1 tablet in the evening. diazePAM 2 2022-0 Yes 2mg Take 1 [facility] rs mg tablet 4-21 tablet by ity o f 00:00: mouth in [place] 00 the Medical morning Branch and 1 tablet in the evening. diazePAM 2 2022-0 Yes 2mg Take 1 [facility] rs mg tablet 4-21 tablet by ity o f 00:00: mouth in [place] 00 the Medical morning Branch and 1 tablet in the evening. diazePAM 2 3-0 Yes 2mg Take 1 [facility] rs mg tablet 4-21 tablet by ity o f 00:00: mouth in [place] 00 the Medical morning Branch and 1 tablet in the evening. diazePAM 2 3-0 Yes 2mg Take 1 [facility] rs mg tablet 4-21 tablet by ity o f 00:00: mouth in [place] 00 the Medical morning Branch and 1 tablet in the evening. diazePAM 2 3-0 Yes 2mg Take 1 [facility] rs mg tablet 4-21 tablet by ity o f 00:00: mouth in [place] 00 the Medical morning Branch and 1 tablet in the evening. diazePAM 2 3-0 Yes 2mg Take 1 [facility] rs mg tablet 4-21 tablet by ity o f 00:00: mouth in [place] 00 the Medical morning Branch and 1 tablet in the evening. diazePAM 2 3-0 Yes 2mg Take 1 [facility] rs mg tablet 4-21 tablet by ity o f 00:00: mouth in [place] 00 the Medical morning Branch and 1 tablet in the evening. diazePAM 2 2022-0 Yes 2mg Take 1 [facility] rs mg tablet 4-21 tablet by ity o f 00:00: mouth in [place] 00 the Medical morning Branch and 1 tablet in the evening. diazePAM 2 3-0 Yes 2mg Take 1 Un[facility] rs mg tablet 4-21 tablet by ity o f 00:00: mouth in [place] 00 the Medical morning Branch and 1 tablet in the evening. diazePAM 2 2022-0 Yes 2mg Take 1 [facility] mg tablet 4-21 tablet by ity o f 00:00: mouth in [place] 00 the Medical morning Branch and 1 tablet in the evening. diazePAM 2 2022-0 Yes 2mg Take 1 [facility] mg tablet 4-21 tablet by ity o f 00:00: mouth in [place] 00 the Medical morning Branch and 1 tablet in the evening. diazePAM 2 2022-0 Yes 2mg Take 1 [facility] mg tablet 4-21 tablet by ity o f 00:00: mouth in [place] 00 the Medical morning Branch and 1 tablet in the evening. diazePAM 2 2022-0 Yes 2mg Take 1 [facility] mg tablet 4-21 tablet by ity o f 00:00: mouth in [place] 00 the Medical morning Branch and 1 tablet in the evening. diazePAM 2 3-0 Yes 2mg Take 1 [facility] mg tablet 4-21 tablet by ity o f 00:00: mouth in [place] 00 the Medical morning Branch and 1 tablet in the evening. diazePAM 2 3-0 Yes 2mg Take 1 [facility] mg tablet 4-21 tablet by ity o f 00:00: mouth in [place] 00 the Medical morning Branch and 1 tablet in the evening. diazePAM 2 3-0 Yes 2mg Take 1 [facility] mg tablet 4-21 tablet by ity o f 00:00: mouth in [place] 00 the Medical morning Branch and 1 tablet in the evening. diazePAM 2 3-0 Yes 2mg Take 1 [facility] mg tablet 4-21 tablet by ity o f 00:00: mouth in [place] 00 the Medical morning Branch and 1 tablet in the evening. omeprazole 2022-0 Yes [id number] 40mg Take 1 [facility] 40 mg 4-19 capsule by ity of capsule 00:00: mouth in [place] 00 the Medical morning Branch and 1 capsule in the evening. omeprazole 2023-0 Yes [id number] 40mg Take 1 [facility] 40 mg 4-19 capsule by ity of capsule 00:00: mouth in [place] [address] the [facility] morning Geraldine and 1 capsule in the evening. omeprazole 2023-0 Yes [id number] 40mg Take 1 [facility] 40 mg 4-19 capsule by ity of capsule 00:00: mouth in [place] [address] the Medical morning Geraldine and 1 capsule in the evening. omeprazole 2023-0 Yes [id number] 40mg Take 1 [facility] 40 mg 4-19 capsule by ity of capsule 00:00: mouth in [address] morning Geraldine and 1 capsule in the evening. omeprazole 2023-0 Yes [id number] 40mg Take 1 [facility] 40 mg 4-19 capsule by ity of capsule 00:00: mouth in [address] morning Geraldine and 1 capsule in the evening. omeprazole 2023-0 Yes [id number] 40mg Take 1 [facility] 40 mg 4-19 capsule by ity of capsule 00:00: mouth in [address] morning Geraldine and 1 capsule in the evening. omeprazole 2023-0 Yes [id number] 40mg Take 1 [facility] 40 mg 4-19 capsule by ity of capsule 00:00: mouth in [address] morning Geraldine and 1 capsule in the evening. omeprazole 2023-0 Yes [id number] 40mg Take 1 [facility] 40 mg 4-19 capsule by ity of capsule 00:00: mouth in [address] morning Geraldine and 1 capsule in the evening. omeprazole 2023-0 Yes [id number] 40mg Take 1 [facility] 40 mg 4-19 capsule by ity of capsule 00:00: mouth in [address] morning Geraldine and 1 capsule in the evening. omeprazole 2023-0 Yes [id number] 40mg Take 1 [facility] 40 mg 4-19 capsule by ity of capsule 00:00: mouth in [address] morning Geraldine and 1 capsule in the evening. omeprazole 2023-0 Yes [id number] 40mg Take 1 [facility] 40 mg 4-19 capsule by ity of capsule 00:00: mouth in [address] morning Geraldine and 1 capsule in the evening. omeprazole 2023-0 Yes [id number] 40mg Take 1 [facility] 40 mg 4-19 capsule by ity of capsule 00:00: mouth in [address] Medical morning Geraldine and 1 capsule in the evening. omeprazole 2023-0 Yes [id number] 40mg Take 1 [facility] 40 mg 4-19 capsule by ity of capsule 00:00: mouth in [place] [address] the Medical morning Geraldine and 1 capsule in the evening. omeprazole 2023-0 Yes [id number] 40mg Take 1 [facility] 40 mg 4-19 capsule by ity of capsule 00:00: mouth in [address] Medical morning Geraldine and 1 capsule in the evening. omeprazole 2023-0 Yes [id number] 40mg Take 1 [facility] 40 mg 4-19 capsule by ity of capsule 00:00: mouth in [address] morning Geraldine and 1 capsule in the evening. omeprazole 2023-0 Yes [id number] 40mg Take 1 [facility] 40 mg 4-19 capsule by ity of capsule 00:00: mouth in [address] morning Geraldine and 1 capsule in the evening. omeprazole 2023-0 Yes [id number] 40mg Take 1 [facility] 40 mg 4-19 capsule by ity of capsule 00:00: mouth in [address] morning Geraldine and 1 capsule in the evening. omeprazole 2023-0 Yes [id number] 40mg Take 1 [facility] 40 mg 4-19 capsule by ity of capsule 00:00: mouth in [address] morning Geraldine and 1 capsule in the evening. omeprazole 2023-0 Yes [id number] 40mg Take 1 [facility] 40 mg 4-19 capsule by ity of capsule 00:00: mouth in [address] morning Geraldine and 1 capsule in the evening. omeprazole 2023-0 Yes [id number] 40mg Take 1 [facility] 40 mg 4-19 capsule by ity of capsule 00:00: mouth in [address] morning Geraldine and 1 capsule in the evening. omeprazole 2023-0 Yes [id number] 40mg Take 1 [facility] 40 mg 4-19 capsule by ity of capsule 00:00: mouth in [address] morning Geraldine and 1 capsule in the evening. omeprazole 2023-0 Yes [id number] 40mg Take 1 [facility] 40 mg 4-19 capsule by ity of capsule 00:00: mouth in [address] morning Geraldine and 1 capsule in the evening. omeprazole 2023-0 Yes [id number] 40mg Take 1 [facility] 40 mg 4-19 capsule by ity of capsule 00:00: mouth in [place] [address] the Medical morning Branch and 1 capsule in the evening. omeprazole 2023-0 Yes [id number] 40mg Take 1 [facility] 40 mg 4-19 capsule by ity of capsule 00:00: mouth in [place] [address] the Medical morning Branch and 1 capsule in the evening. omeprazole 2023-0 Yes [id number] 40mg Take 1 [facility] 40 mg 4-19 capsule by ity of capsule 00:00: mouth in [place] [address] the Medical morning Branch and 1 capsule in the evening. omeprazole 2023-0 Yes [id number] 40mg Take 1 [facility] 40 mg 4-19 capsule by ity of capsule 00:00: mouth in [place] [address] the Medical morning Branch and 1 capsule in the evening. omeprazole 2023-0 Yes [id number] 40mg Take 1 [facility] 40 mg 4-19 capsule by ity of capsule 00:00: mouth in [place] [address] the Medical morning Geraldine and 1 capsule in the evening. omeprazole 2023-0 Yes [id number] 40mg Take 1 [facility] 40 mg 4-19 capsule by ity of capsule 00:00: mouth in [address] Medical morning Geraldine and 1 capsule in the evening. omeprazole 2023-0 Yes [id number] 40mg Take 1 [facility] 40 mg 4-19 capsule by ity of capsule 00:00: mouth in [place] [address] the Medical morning Geraldine and 1 capsule in the evening. omeprazole 2023-0 Yes [id number] 40mg Take 1 [facility] 40 mg 4-19 capsule by ity of capsule 00:00: mouth in [place] [address] the Medical morning Geraldine and 1 capsule in the evening. omeprazole 2023-0 Yes [id number] 40mg Take 1 [facility] 40 mg 4-19 capsule by ity of capsule 00:00: mouth in [address] Medical morning Geraldine and 1 capsule in the evening. omeprazole 2023-0 Yes [id number] 40mg Take 1 [facility] 40 mg 4-19 capsule by ity of capsule 00:00: mouth in [address] Medical morning Geraldine and 1 capsule in the evening. omeprazole 2023-0 Yes [id number] 40mg Take 1 [facility] 40 mg 4-19 capsule by ity of capsule 00:00: mouth in [address] Medical morning Geraldine and 1 capsule in the evening. omeprazole 2023-0 2023- No [id number] 40mg Take 1 [facility] 40 mg 4-04 01-05 capsule by ity of capsule 00:00: 00:00 mouth in [place] 00 :00 the Medical morning Branch and 1 capsule in the evening. omeprazole 2022- No [id number] 40mg Take 1 [facility] 40 mg 4-04 01-05 capsule by ity of capsule 00:00: 00:00 mouth in [place] 00 :00 the Medical morning Branch and 1 capsule in the evening. omeprazole 2022- No [id number] 40mg Take 1 [facility] 40 mg 4-05 capsule by ity of capsule 00:00: 00:00 mouth in [place] 00 :00 the Medical morning Branch and 1 capsule in the evening. IMITREX 5 Yes as needed Uni vers MG/ACTUATIO 4-18 for ity of N NASAL 09:34: migraines [place] SPRY [facility] Yes Apply to Un glen [place] 0.1% in 4-18 affected ity o f aquaphor 09:34: area(s). [place] (COMPOUNDED 00 Medical ) ointment Branch cariprazine Yes 1.5mg Take 1.5 U nivers (VRAYLAR) 4-18 mg by ity of 1.5 mg (1)- 09:34: mouth [place] 3 mg (6) 00 every Medical CpPk morning. Branch IMITREX 5 Yes as needed Uni vers MG/ACTUATIO 4-18 for ity of N NASAL 09:34: migraines SPRY [facility] Yes Apply to Un [place] 0.1% in 4-18 affected ity o f aquaphor 09:34: area(s). [place] (COMPOUNDED 00 Medical ) ointment Branch cariprazine Yes 1.5mg Take 1.5 U nivers (VRAYLAR) 4-18 mg by ity of 1.5 mg (1)- 09:34: mouth [place] 3 mg (6) 00 every Medical CpPk morning. Branch IMITREX 5 Yes as needed Uni vers MG/ACTUATIO 4-18 for ity of N NASAL 09:34: migraines [place] SPRY [facility] Yes Apply to Un [place] 0.1% in 4-18 affected ity o f aquaphor 09:34: area(s). [place] (COMPOUNDED 00 Medical ) ointment Branch cariprazine 2022-0 Yes 1.5mg Take 1.5 [...] (COMPOUNDED 00 Medical ) ointment Branch cariprazine 2022-0 Yes 1.5mg Take 1.5 [...] (COMPOUNDED 00 Medical ) ointment Branch cariprazine 2022-0 Yes 1.5mg Take 1.5 [...] (COMPOUNDED 00 Medical ) ointment Branch cariprazine 2023-0 Yes 1.5mg Take 1.5 U nivers (VRAYLAR) 4-18 mg by ity of 1.5 mg (1)- 09:34: mouth [place] 3 mg (6) 00 every Medical CpPk morning. Branch IMITREX 5 0 Yes as needed Uni vers MG/ACTUATIO 4-18 for ity of N NASAL 09:34: migraines [place] SPRY 00 Medical Branch [facility] Yes Apply to Un glen ne [...] 09:34: migraines [place] SPRY 00 Medical Branch [facility] Yes Apply to Un [place] 0.1% in 4-18 affected ity o f aquaphor 09:34: area(s). [place] (COMPOUNDED 00 Medical ) ointment Branch cariprazine Yes 1.5mg Take 1.5 U nivers (VRAYLAR) 4-18 mg by ity of 1.5 mg (1)- 09:34: mouth [place] 3 mg (6) 00 every Medical CpPk morning. Branch IMITREX 5 Yes as needed Uni vers MG/ACTUATIO 4-18 for ity of N NASAL 09:34: migraines [place] SPRY 00 Medical Branch [facility] Yes Apply to Un [place] [...] 09:34: migraines [place] SPRY 00 Medical Branch [facility] Yes Apply to Un [place] [...] NASAL 09:34: migraines [place] SPRY Medical Branch [facility] Yes Apply to Un glen ne [...] NASAL 09:34: migraines [place] SPRY Medical Branch [facility] Yes Apply to [place] 0.1% in 4-18 affected ity o f aquaphor 09:34: area(s). [place] (COMPOUNDED 00 Medical ) ointment Branch cariprazine 0 Yes 1.5mg Take 1.5 U nivers (VRAYLAR) 4-18 mg by ity of 1.5 mg (1)- 09:34: mouth [place] 3 mg (6) 00 every Medical CpPk morning. Branch IMITREX 5 0 Yes as needed Uni vers MG/ACTUATIO 4-18 for ity of N NASAL 09:34: migraines [place] SPRY 00 Medical Branch [facility] Yes Apply to [place] 0.1% in 4-18 affected ity o f aquaphor 09:34: area(s). [place] (COMPOUNDED 00 Medical ) ointment Branch cariprazine 2022-0 Yes 1.5mg Take 1.5 [...] (COMPOUNDED 00 Medical ) ointment Branch cariprazine 2022-0 Yes 1.5mg Take 1.5 [...] (COMPOUNDED 00 Medical ) ointment Branch cariprazine 2022-0 Yes 1.5mg Take 1.5 [...] (COMPOUNDED 00 Medical ) ointment Branch cariprazine 2023-0 Yes 1.5mg Take 1.5 U nivers (VRAYLAR) 4-18 mg by ity of 1.5 mg (1)- 09:34: mouth [place] 3 mg (6) 00 every Medical CpPk morning. Branch IMITREX 5 0 Yes as needed Uni vers MG/ACTUATIO 4-18 for ity of N NASAL 09:34: migraines [place] SPRY 00 Medical Branch [facility] Yes Apply to Un [place] ne [...] 09:34: migraines [place] SPRY 00 Medical Branch [facility] Yes Apply to [place] 0.1% in 4-18 affected ity o f aquaphor 09:34: area(s). [place] (COMPOUNDED 00 Medical ) ointment Branch cariprazine Yes 1.5mg Take 1.5 U nivers (VRAYLAR) 4-18 mg by ity of 1.5 mg (1)- 09:34: mouth [place] 3 mg (6) 00 every Medical CpPk morning. Branch IMITREX 5 Yes as needed Uni vers MG/ACTUATIO 4-18 for ity of N NASAL 09:34: migraines [place] SPRY 00 Medical Branch [facility] Yes Apply to Un [place] ne [...] 09:34: migraines [place] SPRY 00 Medical Branch [facility] Yes Apply to Un [place] ne [...] NASAL 09:34: migraines [place] SPRY Medical Branch [facility] Yes Apply to Un [place]en ne [...] NASAL 09:34: migraines [place] SPRY Medical Branch [facility] Yes Apply to [place] 0.1% in 4-18 affected ity o f aquaphor 09:34: area(s). [place] (COMPOUNDED 00 Medical ) ointment Branch cariprazine 0 Yes 1.5mg Take 1.5 U nivers (VRAYLAR) 4-18 mg by ity of 1.5 mg (1)- 09:34: mouth [place] 3 mg (6) 00 every Medical CpPk morning. Branch IMITREX 5 0 Yes as needed Uni vers MG/ACTUATIO 4-18 for ity of N NASAL 09:34: migraines [place] SPRY 00 Medical Branch [facility] Yes Apply to [place] 0.1% in 4-18 affected ity o f aquaphor 09:34: area(s). [place] (COMPOUNDED 00 Medical ) ointment Branch cariprazine 2022-0 Yes 1.5mg Take 1.5 [...] (COMPOUNDED 00 Medical ) ointment Branch cariprazine 2022-0 Yes 1.5mg Take 1.5 [...] (COMPOUNDED 00 Medical ) ointment Branch cariprazine 2022-0 Yes 1.5mg Take 1.5 [...] (COMPOUNDED 00 Medical ) ointment Branch cariprazine 2023-0 Yes 1.5mg Take 1.5 U nivers (VRAYLAR) 4-18 mg by ity of 1.5 mg (1)- 09:34: mouth [place] 3 mg (6) 00 every Medical CpPk morning. Branch IMITREX 5 0 Yes as needed Uni vers MG/ACTUATIO 4-18 for ity of N NASAL 09:34: migraines [place] SPRY 00 Medical Branch [facility] Yes Apply to Un glen ne [...] 09:34: migraines [place] SPRY 00 Medical Branch [facility] Yes Apply to [place] 0.1% in 4-18 affected ity o f aquaphor 09:34: area(s). [place] (COMPOUNDED 00 Medical ) ointment Branch cariprazine Yes 1.5mg Take 1.5 U nivers (VRAYLAR) 4-18 mg by ity of 1.5 mg (1)- 09:34: mouth [place] 3 mg (6) 00 every Medical CpPk morning. Branch IMITREX 5 Yes as needed Uni vers MG/ACTUATIO 4-18 for ity of N NASAL 09:34: migraines [place] SPRY 00 Medical Branch [facility] Yes Apply to Un [place] ne [...] 09:34: migraines [place] SPRY 00 Medical Branch [facility] Yes Apply to Un [place] ne [...] NASAL 09:34: migraines [place] SPRY Medical Branch [facility] Yes Apply to Un [place] ne [...] NASAL 09:34: migraines [place] SPRY Medical Branch [facility] Yes Apply to [place] 0.1% in 4-18 affected ity o f aquaphor 09:34: area(s). [place] (COMPOUNDED 00 Medical ) ointment Branch cariprazine 0 Yes 1.5mg Take 1.5 U nivers (VRAYLAR) 4-18 mg by ity of 1.5 mg (1)- 09:34: mouth [place] 3 mg (6) 00 every Medical CpPk morning. Branch IMITREX 5 0 Yes as needed Uni vers MG/ACTUATIO 4-18 for ity of N NASAL 09:34: migraines [place] SPRY 00 Medical Branch [facility] Yes Apply to [place] 0.1% in 4-18 affected ity o f aquaphor 09:34: area(s). [place] (COMPOUNDED 00 Medical ) ointment Branch cariprazine 2022-0 Yes 1.5mg Take 1.5 [...] (COMPOUNDED 00 Medical ) ointment Branch cariprazine 2022-0 Yes 1.5mg Take 1.5 [...] (COMPOUNDED 00 Medical ) ointment Branch cariprazine 2022-0 Yes 1.5mg Take 1.5 [...] (COMPOUNDED 00 Medical ) ointment Branch cariprazine 2023-0 Yes 1.5mg Take 1.5 [...] affected ity o f aquaphor 09:34: area(s). [place] (COMPOUNDED 00 Medical ) ointment Branch IMITREX 5 Yes as needed Uni vers MG/ACTUATIO 4-18 for ity of N NASAL 09:34: migraines [place] SPRY 00 Medical Branch triamcin[facility] Yes Apply to [place] 0.1% in 4-18 affected ity o f aquaphor 09:34: area(s). [place] (COMPOUNDED 00 Medical ) ointment Branch IMITREX 5 Yes as needed Uni vers MG/ACTUATIO 4-18 for ity of N NASAL 09:34: migraines [place] SPRY 00 Medical Branch triamcinolo Yes Apply to [place] 0.1% in 4-18 affected ity o f aquaphor 09:34: area(s). [place] (COMPOUNDED 00 Medical ) ointment Branch IMITREX 5 Yes as needed Uni vers MG/ACTUATIO 4-18 for ity of N NASAL 09:34: migraines [place] SPRY 00 Medical Branch triamcinolo Yes Apply to [place] 0.1% in 4-18 affected ity o f aquaphor 09:34: area(s). [place] (COMPOUNDED 00 Medical ) ointment Branch IMITREX 5 Yes as needed Uni vers MG/ACTUATIO 4-18 for ity of N NASAL 09:34: migraines [place] SPRY 00 Medical Branch triamcinolo Yes Apply to [place] 0.1% in 4-18 affected ity o f aquaphor 09:34: area(s). [place] (COMPOUNDED 00 Medical ) ointment Branch IMITREX 5 Yes as needed Uni vers MG/ACTUATIO 4-18 for ity of N NASAL 09:34: migraines [place] SPRY 00 Medical Branch triamcinolo Yes Apply to [place] 0.1% in -18 affected ity o f aquaphor 09:34: area(s). [place] (COMPOUNDED 00 Medical ) ointment Branch IMITREX 5 Yes as needed Uni vers MG/ACTUATIO 4-18 for ity of N NASAL 09:34: migraines [place] SPRY 00 Medical Branch triamcinolo Yes Apply to [place] 0.1% in -18 affected ity o f aquaphor 09:34: area(s). [place] (COMPOUNDED 00 Medical ) ointment Branch IMITREX 5 Yes as needed Uni vers MG/ACTUATIO 4-18 for ity of N NASAL 09:34: migraines [place] SPRY 00 Medical Branch triamcinolo Yes Apply to [place] 0.1% in -18 affected ity o f aquaphor 09:34: area(s). [place] (COMPOUNDED 00 Medical ) ointment Branch IMITREX 5 Yes as needed Uni vers MG/ACTUATIO 4-18 for ity of N NASAL 09:34: migraines [place] SPRY 00 Medical Branch triamcinolo Yes Apply to [place] 0.1% in -18 affected ity o f aquaphor 09:34: area(s). [place] (COMPOUNDED 00 Medical ) ointment Branch IMITREX [...] 00 Medical ) ointment Branch IMITREX 5 2023-0 Yes as needed Uni vers MG/ACTUATIO 18 for ity of N NASAL 09:34: migraines [place] SPRY 00 Medical Branch [facility] Yes Apply to [place] 0.1% in 18 affected ity o f aquaphor 09:34: area(s). [place] (COMPOUNDED 00 Medical ) ointment Branch IMITREX 5 Yes as needed Uni vers MG/ACTUATIO 18 for ity of N NASAL 09:34: migraines [place] SPRY 00 [facility] Branch [facility] Apply to [place] 0.1% in 18 affected ity o f aquaphor 09:34: area(s). [place] (COMPOUNDED Medical ) ointment Branch IMITREX 5 Yes as needed Uni vers MG/ACTUATIO 18 for ity of N NASAL 09:34: migraines [place] SPRY Medical Branch [facility] Yes Apply to [place] 0.1% in 18 affected ity o f aquaphor 09:34: area(s). [place] (COMPOUNDED 00 Medical ) ointment Branch dicyclomine [...] 15 Minutes, 100 mL iopamidol 2022- No [id number] 80mL 80 mL, Univers (ISOVUE 10-29 Intravenou [...] 1 Medical 40 mg dose, On Branch Maisha 10/29/22 at 0345 proMETHazin 2022- No 25mg 25 mg, IV Univers e 10-29 Piggyback, ity of (PHENERGAN) 08:45: 10:19 at 200 [place] as 25 mg in [place] 00 :00 mL/hr Medical 50 mL IV Administer Branc h piggyback over 15 (CNR) Minutes, ONCE, 1 dose, On Maisha 10/29/22 at 0345, THIERRY dicyclomine 2022- No [id number] 20mg Take 1 [facility] 20 mg 10-29 tablet by ity of tablet 00:00: 04:59 mouth 4 [place] 00 :00 (four) Medical times Geraldine daily for 7 days. dicyclomine 0 2022- No [id number] 20mg Take 1 [facility] 20 mg 10-29 tablet by ity of tablet 00:00: 04:59 mouth 4 [place] 00 :00 ([facility]) Medical times [place]ine daily for 7 days. dicyclomine 2022-2022- No [id number] 20mg Take 1 [facility] 20 mg 10-29 tablet by ity of tablet 00:00: 04:59 mouth 4 [place] 00 :[address]) Medical times [place]ine daily for 7 days. dicyclomine 2022-0 2022- No [id number] 20mg Take 1 [facility] 20 mg 10-29 tablet by ity of tablet 00:00: 04:59 mouth 4 [place] 00 :[address]) Medical times [place]ine daily for 7 days. dicyclomine 2022-2022- No [id number] 20mg Take 1 [facility] 20 mg 10-29 tablet by ity of tablet 00:00: 04:59 mouth 4 [place] 00 :00 ([facility]) Medical times [place]ine daily for 7 days. dicyclomine 2022- No [id number] 20mg Take 1 [facility] 20 mg 10-29 tablet by ity of tablet 00:00: 04:59 mouth 4 [place] 00 :[address]) Medical times [place]ine daily for 7 days. dicyclomine 2022-2022- No [id number] 20mg Take 1 [facility] 20 mg 10-29 tablet by ity of tablet 00:00: 04:59 mouth 4 [place] 00 :[address]) Medical times [place] daily for 7 days. ketorolac 2022- No 30mg 30 mg, Unive rs (TORADOL) 10-28 Slow IV ity of injection 01:45: 01:41 Push, [place] 30 mg 00 :00 ONCE, 1 Medical dose, On Branch 10/27/22 at 2044, Routine cyclobenzap 2022- No [...] Wed10/27/22 at 204, Routine ibuprofen 2022-0 Yes [id number] 800mg Take 1 U nivers 800 mg 4-11 tablet by ity of tablet 00:00: mouth [place] 00 every 8 Medical (eight) Branch hours as needed for Pain (scale 4-6) or Temp > 38.5 C. cyclobenzap 2022-0 Yes [id number] 10mg Take 1 Univers rine 10 mg 4-11 tablet by ity of tablet 00:00: mouth in [place] 00 the Medical morning Branch and 1 tablet at noon and 1 tablet in the evening. ibuprofen 2022-0 Yes [id number] 800mg Take 1 U nivers 800 mg 4-11 tablet by ity of tablet 00:00: mouth [place] 00 every 8 Medical (eight) Branch hours as needed for Pain (scale 4-6) or Temp > 38.5 C. cyclobenzap 2022-0 Yes [id number] 10mg Take 1 Univers rine 10 mg 4-11 tablet by ity of tablet 00:00: mouth in [place] 00 the Medical morning Branch and 1 tablet at noon and 1 tablet in the evening. ibuprofen 2022-0 Yes [id number] 800mg Take 1 U nivers 800 mg 4-11 tablet by ity of tablet 00:00: mouth [place] 00 every 8 Medical (eight) Branch hours as needed for Pain (scale 4-6) or Temp > 38.5 C. cyclobenzap 2022-0 Yes [id number] 10mg Take 1 Univers rine 10 mg 4-11 tablet by ity of tablet 00:00: mouth in [place] 00 the Medical morning Branch and 1 tablet at noon and 1 tablet in the evening. ibuprofen 202-0 Yes [id number] 800mg Take 1 U nivers 800 mg 4-11 tablet by ity of tablet 00:00: mouth [place] 00 every 8 Medical (eight) Branch hours as needed for Pain (scale 4-6) or Temp > 38.5 C. cyclobenzap 2022-0 Yes [id number] 10mg Take 1 Univers rine 10 mg 4-11 tablet by ity of tablet 00:00: mouth in [place] 00 the Medical morning Branch and 1 tablet at noon and 1 tablet in the evening. ibuprofen 3-0 Yes [id number] 800mg Take 1 U nivers 800 mg 4-11 tablet by ity of tablet 00:00: mouth [place] 00 every 8 Medical (eight) Branch hours as needed for Pain (scale 4-6) or Temp > 38.5 C. cyclobenzap 3-0 Yes [id number] 10mg Take 1 Univers rine 10 mg 4-11 tablet by ity of tablet 00:00: mouth in [place] 00 the Medical morning Branch and 1 tablet at noon and 1 tablet in the evening. ibuprofen 2022-0 Yes [id number] 800mg Take 1 U nivers 800 mg 4-11 tablet by ity of tablet 00:00: mouth [place] 00 every 8 Medical (eight) Branch hours as needed for Pain (scale 4-6) or Temp > 38.5 C. cyclobenzap 2022-0 Yes [id number] 10mg Take 1 Univers rine 10 mg 4-11 tablet by ity of tablet 00:00: mouth in [place] 00 the Medical morning Branch and 1 tablet at noon and 1 tablet in the evening. ibuprofen 2022-0 Yes [id number] 800mg Take 1 U nivers 800 mg 4-11 tablet by ity of tablet 00:00: mouth [place] 00 every 8 Medical (eight) Branch hours as needed for Pain (scale 4-6) or Temp > 38.5 C. cyclobenzap 3-0 Yes [id number] 10mg Take 1 Univers rine 10 mg 4-11 tablet by ity of tablet 00:00: mouth in [place] 00 the Medical morning Branch and 1 tablet at noon and 1 tablet in the evening. ibuprofen 2023-0 Yes [id number] 800mg Take 1 U nivers 800 mg 4-11 tablet by ity of tablet 00:00: mouth [place] 00 every 8 Medical (eight) Branch hours as needed for Pain (scale 4-6) or Temp > 38.5 C. cyclobenzap 2023-0 Yes [id number] 10mg Take 1 Univers rine 10 mg 4-11 tablet by ity of tablet 00:00: mouth in [place] 00 the Medical morning Branch and 1 tablet at noon and 1 tablet in the evening. ibuprofen 2023-0 Yes [id number] 800mg Take 1 U nivers 800 mg 4-11 tablet by ity of tablet 00:00: mouth [place] 00 every 8 Medical (eight) Branch hours as needed for Pain (scale 4-6) or Temp > 38.5 C. cyclobenzap 3-0 Yes [id number] 10mg Take 1 Univers rine 10 mg 4-11 tablet by ity of tablet 00:00: mouth in [place] 00 the Medical morning Branch and 1 tablet at noon and 1 tablet in the evening. ibuprofen 3-0 Yes [id number] 800mg Take 1 U nivers 800 mg 4-11 tablet by ity of tablet 00:00: mouth [place] 00 every 8 Medical (eight) Branch hours as needed for Pain (scale 4-6) or Temp > 38.5 C. cyclobenzap 2022-0 Yes [id number] 10mg Take 1 Univers rine 10 mg 4-11 tablet by ity of tablet 00:00: mouth in [place] 00 the Medical morning Branch and 1 tablet at noon and 1 tablet in the evening. ibuprofen 2022-0 Yes [id number] 800mg Take 1 [facility] nivers 800 mg 4-11 tablet by ity of tablet 00:00: mouth [place] every 8 Medical (eight) Branch hours as needed for Pain (scale 4-6) or Temp > 38.5 C. cyclobenzap 2022-0 Yes [id number] 10mg Take 1 [facility] rine 10 mg 4-11 tablet by ity of tablet 00:00: mouth in [place] 00 the Medical morning Branch and 1 tablet at noon and 1 tablet in the evening. ibuprofen 3-0 Yes [id number] 800mg Take 1 [facility] nivers 800 mg 4-11 tablet by ity of tablet 00:00: mouth [place] 00 every 8 Medical (eight) Branch hours as needed for Pain (scale 4-6) or Temp > 38.5 C. cyclobenzap 2023-0 Yes [id number] 10mg Take 1 [facility] rine 10 mg 4-11 tablet by ity of tablet 00:00: mouth in [place] 00 the Medical morning Branch and 1 tablet at noon and 1 tablet in the evening. ibuprofen 2023-0 Yes [id number] 800mg Take 1 [facility] nivers 800 mg 4-11 tablet by ity of tablet 00:00: mouth [place] 00 every 8 Medical (eight) Branch hours as needed for Pain (scale 4-6) or Temp > 38.5 C. cyclobenzap 2023-0 Yes [id number] 10mg Take 1 [facility] rine 10 mg -11 tablet by ity of tablet 00:00: mouth in [place] 00 the Medical morning Branch and 1 tablet at noon and 1 tablet in the evening. ibuprofen 2022- No [id number] 800mg Take 1 [facility] 800 mg 10-27 tablet by ity of tablet 00:00: 00:00 mouth [place] 00 :00 every 8 Medical (eight) Branch hours as needed for Pain (scale 4-6) or Temp > 38.5 C. cyclobenzap 2022- No [id number] 10mg Take 1 [facility] rine 10 mg 10-27 tablet by ity of tablet 00:00: 00:00 mouth in [place] 00 :00 the Medical morning Branch and 1 tablet at noon and 1 tablet in the evening. ibuprofen 2022- No [id number] 800mg Take 1 [facility] 800 mg 10-27 tablet by ity of tablet 00:00: 00:00 mouth [place] 00 :00 every 8 Medical (eight) Branch hours as needed for Pain (scale 4-6) or Temp > 38.5 C. cyclobenzap 2022- No [id number] 10mg Take 1 [facility] rine 10 mg 10-27 tablet by ity of tablet 00:00: 00:00 mouth in [place] 00 :00 the Medical morning Branch and 1 tablet at noon and 1 tablet in the evening. iopamidol 2022- No [id number] 65mL 65 mL, [facility] (ISOVUE 10-20 Intravenou ity o f 370-500 mL) 23:15: 23:15 s, ONCE, 1 [place] injection 00 :00 dose, On Medica l 65 mL 10/20/22 Branch at 1815, Routine naproxen 2022- No 500mg 500 mg, Univ ers (NAPROSYN) 10-20 Oral, ity of tablet 500 19:30: 21:25 ONCE, 1 [place] mg 00 :00 dose, On Medical 10/20/22 Branch at 1625, Routine pantoprazol Yes [id number] 40mg Take 1 [facility] e 40 mg EC 3-27 tablet by ity of tablet 00:00: mouth in [place] 00 the Medical morning Branch and 1 tablet in the evening. pantoprazol 2023-0 Yes [id number] 40mg Take 1 [facility] e 40 mg EC 3-27 tablet by ity of tablet 00:00: mouth in [place] 00 the Medical morning Branch and 1 tablet in the evening. pantoprazol 2023-0 Yes [id number] 40mg Take 1 [facility] e 40 mg EC 3-27 tablet by ity of tablet 00:00: mouth in [place] 00 the Medical morning Branch and 1 tablet in the evening. pantoprazol 2023-0 Yes [id number] 40mg Take 1 [facility] e 40 mg EC 3-27 tablet by ity of tablet 00:00: mouth in [place] 00 the Medical morning Branch and 1 tablet in the evening. pantoprazol 2023-0 Yes [id number] 40mg Take 1 [facility] e 40 mg EC 3-27 tablet by ity of tablet 00:00: mouth in [place] [address] the Medical morning Branch and 1 tablet in the evening. pantoprazol 2023-0 Yes [id number] 40mg Take 1 [facility] e 40 mg EC 3-27 tablet by ity of tablet 00:00: mouth in [place] [address] the Medical morning Branch and 1 tablet in the evening. pantoprazol 2023-0 Yes [id number] 40mg Take 1 [facility] e 40 mg EC 3-27 tablet by ity of tablet 00:00: mouth in [place] [address] the Medical morning Branch and 1 tablet in the evening. pantoprazol 2023-0 Yes [id number] 40mg Take 1 [facility] e 40 mg EC 3-27 tablet by ity of tablet 00:00: mouth in [place] [address] the Medical morning Branch and 1 tablet in the evening. pantoprazol 2023-0 Yes [id number] 40mg Take 1 [facility] e 40 mg EC 3-27 tablet by ity of tablet 00:00: mouth in [place] [address] the Medical morning Branch and 1 tablet in the evening. pantoprazol 2023-0 Yes [id number] 40mg Take 1 [facility] e 40 mg EC 3-27 tablet by ity of tablet 00:00: mouth in [place] [address] the Medical morning Branch and 1 tablet in the evening. pantoprazol 2023-0 Yes [id number] 40mg Take 1 [facility] e 40 mg EC 3-27 tablet by ity of tablet 00:00: mouth in [place] 00 the Medical morning Branch and 1 tablet in the evening. pantoprazol 2022-0 Yes [id number] 40mg Take 1 [facility] e 40 mg EC 3-27 tablet by ity of tablet 00:00: mouth in [place] 00 the Medical morning Branch and 1 tablet in the evening. pantoprazol 2022-0 Yes [id number] 40mg Take 1 [facility] e 40 mg EC 3-27 tablet by ity of tablet 00:00: mouth in [place] 00 the Medical morning Branch and 1 tablet in the evening. pantoprazol 2022-0 Yes [id number] 40mg Take 1 [facility] e 40 mg EC 3-27 tablet by ity of tablet 00:00: mouth in [place] 00 the Medical morning Branch and 1 tablet in the evening. pantoprazol 2022-0 2022- No [id number] 40mg Take 1 [facility] e 40 mg EC 3-27 04-19 tablet by ity of tablet 00:00: 00:00 mouth in [place] 00 :00 the [facility] morning Branch and 1 tablet in the evening. pantoprazol 2022-2022- No [id number] 40mg Take 1 [facility] e 40 mg EC 3-27 04-19 tablet by ity of tablet 00:00: 00:00 mouth in [place] 00 :00 the Medical morning Branch and 1 tablet in the evening. pantoprazol 2022-0 2022- No [id number] 40mg Take 1 [facility] e 40 mg EC 3-27 04-19 tablet by ity of tablet 00:00: 00:00 mouth in [place] 00 :00 the [facility] morning Branch and 1 tablet in the evening. iopamidol 2022- No [id number] 100mL 100 mL, [facility] (ISOVUE 10-09 Intravenou ity o f 370-500 mL) 06:15: 06:15 s, ONCE, 1 [place] injection 00 :00 dose, On Medica l 100 mL Wed Geraldine 10/09/22 at 0115, Routine ondansetron 2022- No 4mg 4 mg, Slow [facility] (ZOFRAN 10-09 IV Push, ity of (PF)) 06:00: 06:10 ONCE, 1 [place] injection 4 00 :00 dose, On Medi cherie mg Wed Geraldine 10/09/22 at 0100, THIERRY morpHINE (4 2022- [...] 10/08/22 at 2345, THIERRY ibuprofen 2022-0 Yes [id number] 600mg Take 1 [facility] nivers 600 mg 3-24 tablet by ity of tablet 00:00: mouth [place] 00 every 6 Medical (six) Branch hours as needed for Pain (scale 4-6). ibuprofen 2022-0 Yes [id number] 600mg Take 1 [facility] nivers 600 mg 3-24 tablet by ity of tablet 00:00: mouth [place] 00 every 6 Medical (six) Branch hours as needed for Pain (scale 4-6). esomeprazol 2022-0 Yes [id number] 20mg Take 20 mg [facility] e 20 mg 3-24 by mouth ity of capsule 00:00: daily [place] 00 before a Medical meal. Branch ibuprofen 2022-0 Yes [id number] 600mg Take 1 [facility] nivers 600 mg 3-24 tablet by ity of tablet 00:00: mouth [place] 00 every 6 Medical (six) Branch hours as needed for Pain (scale 4-6). ibuprofen 2022-0 Yes [id number] 600mg Take 1 [facility] nivers 600 mg 3-24 tablet by ity of tablet 00:00: mouth [place] 00 every 6 Medical (six) Branch hours as needed for Pain (scale 4-6). ibuprofen 2022-0 Yes [id number] 600mg Take 1 [facility] nivers 600 mg 3-24 tablet by ity of tablet 00:00: mouth [place] 00 every 6 Medical (six) Branch hours as needed for Pain (scale 4-6). ibuprofen 2022-0 Yes [id number] 600mg Take 1 [facility] nivers 600 mg 3-24 tablet by ity of tablet 00:00: mouth [place] 00 every 6 Medical (six) Branch hours as needed for Pain (scale 4-6). ibuprofen 2023-0 Yes [id number] 600mg Take 1 [facility] nivers 600 mg 3-24 tablet by ity of tablet 00:00: mouth [place] 00 every 6 Medical (six) Branch hours as needed for Pain (scale 4-6). ibuprofen 2023-0 Yes [id number] 600mg Take 1 [facility] nivers 600 mg 3-24 tablet by ity of tablet 00:00: mouth [place] 00 every 6 Medical (six) Branch hours as needed for Pain (scale 4-6). ibuprofen 2023-0 Yes [id number] 600mg Take 1 [facility] nivers 600 mg 3-24 tablet by ity of tablet 00:00: mouth [place] 00 every 6 Medical (six) Branch hours as needed for Pain (scale 4-6). ibuprofen 2023-0 Yes [id number] 600mg Take 1 [facility] nivers 600 mg 3-24 tablet by ity of tablet 00:00: mouth [place] 00 every 6 Medical (six) Branch hours as needed for Pain (scale 4-6). ibuprofen 2023-0 Yes [id number] 600mg Take 1 [facility] nivers 600 mg 3-24 tablet by ity of tablet 00:00: mouth [place] 00 every 6 Medical (six) Branch hours as needed for Pain (scale 4-6). ibuprofen 2023-0 Yes [id number] 600mg Take 1 [facility] nivers 600 mg 3-24 tablet by ity of tablet 00:00: mouth [place] 00 every 6 Medical (six) Branch hours as needed for Pain (scale 4-6). ibuprofen 2023-0 Yes [id number] 600mg Take 1 [facility] nivers 600 mg 3-24 tablet by ity of tablet 00:00: mouth [place] 00 every 6 Medical (six) Branch hours as needed for Pain (scale 4-6). ibuprofen 2023-0 Yes [id number] 600mg Take 1 [facility] nivers 600 mg 3-24 tablet by ity of tablet 00:00: mouth [place] 00 every 6 Medical (six) Branch hours as needed for Pain (scale 4-6). ibuprofen 2023-0 Yes [id number] 600mg Take 1 [facility] nivers 600 mg 3-24 tablet by ity of tablet 00:00: mouth [place] 00 every 6 Medical (six) Branch hours as needed for Pain (scale 4-6). ibuprofen 2023-0 Yes [id number] 600mg Take 1 [facility] nivers 600 mg 3-24 tablet by ity of tablet 00:00: mouth [place] 00 every 6 Medical (six) Branch hours as needed for Pain (scale 4-6). ibuprofen 2023-0 Yes [id number] 600mg Take 1 [facility] nivers 600 mg 3-24 tablet by ity of tablet 00:00: mouth [place] 00 every 6 Medical (six) Branch hours as needed for Pain (scale 4-6). ibuprofen 2023-0 Yes [id number] 600mg Take 1 [facility] nivers 600 mg 3-24 tablet by ity of tablet 00:00: mouth [place] 00 every 6 Medical (six) Branch hours as needed for Pain (scale 4-6). ibuprofen 2023-0 Yes [id number] 600mg Take 1 [facility] nivers 600 mg 3-24 tablet by ity of tablet 00:00: mouth [place] 00 every 6 Medical (six) Branch hours as needed for Pain (scale 4-6). ibuprofen 2023-0 Yes [id number] 600mg Take 1 U nivers 600 mg 3-24 tablet by ity of tablet 00:00: mouth [place] 00 every 6 Medical (six) Branch hours as needed for Pain (scale 4-6). ibuprofen 2023-0 Yes [id number] 600mg Take 1 [facility] nivers 600 mg 3-24 tablet by ity of tablet 00:00: mouth [place] 00 every 6 Medical (six) Branch hours as needed for Pain (scale 4-6). ibuprofen 2023-0 2023- No [id number] 600mg Take 1 [facility] 600 mg 3-24 05-01 tablet by ity of tablet 00:00: 00:00 mouth [place] 00 :00 every 6 Medical (six) Branch hours as needed for Pain (scale 4-6). ibuprofen 2023-0 2023- No [id number] 600mg Take 1 [facility] 600 mg 3-24 05-01 tablet by ity of tablet 00:00: 00:00 mouth [place] 00 :00 every 6 Medical (six) Branch hours as needed for Pain (scale 4-6). dicyclomine 2023-0 2023- No [id number] 20mg Take 1 [facility] 20 mg 3-24 04-01 tablet by ity of tablet 00:00: 04:59 mouth 4 [place] 00 :00 (four) Medical times Branch daily for 7 days. dicyclomine 2023-0 2023- No [id number] 20mg Take 1 [facility] 20 mg 3-24 - tablet by ity of tablet 00:00: 04:59 mouth 4 [place] 00 :00 (four) Medical times Branch daily for 7 days. dicyclomine 2022- No [id number] 20mg Take 1 [facility] 20 mg 3-24 - tablet by ity of tablet 00:00: 04:59 mouth 4 [place] 00 :00 (four) Medical times Branch daily for 7 days. budesonide- 2022-0 Yes [id number] 2{puff} Inhale 2 [facility] glycopyr-fo 3-20 Puffs in ity of rmoterol 00:00: the [place] ([facility] morning Medical AEROS[facility]ERE) and 2 Branch 160-9-4.8 Puffs in mcg/actuati the on HFAA evening. budesonide- 2022-0 Yes [id number] 2{puff} Inhale 2 [facility] glycopyr-fo 3-20 Puffs in ity of rmoterol 00:00: the [place] ([facility] morning Medical AEROSPHERE) and 2 Branch 160-9-4.8 Puffs in mcg/actuati the on HFAA evening. budesonide- 2022-0 Yes [id number] 2{puff} Inhale 2 [facility] glycopyr-fo 3-20 Puffs in ity of rmoterol 00:00: the [place] ([facility] 00 morning Medical AEROSPHERE) and 2 Branch 160-9-4.8 Puffs in mcg/actuati the on HFAA evening. budesonide- 2022-0 Yes [id number] 2{puff} Inhale 2 [facility] glycopyr-fo 3-20 Puffs in ity of rmoterol 00:00: the [place] ([facility] 00 morning Medical AEROSPHERE) and 2 Branch 160-9-4.8 Puffs in mcg/actuati the on HFAA evening. budesonide- 2022-0 Yes [id number] 2{puff} Inhale 2 [facility] glycopyr-fo 3-20 Puffs in ity of rmoterol 00:00: the [place] ([facility] morning Medical AEROSPHERE) and 2 Branch 160-9-4.8 Puffs in mcg/actuati the on HFAA evening. budesonide- 2023-0 Yes [id number] 2{puff} Inhale 2 [facility] glycopyr-fo 3-20 Puffs in ity of rmoterol 00:00: the [place] ([facility] AEROS[facility]) and 2 Branch 160-9-4.8 Puffs in mcg/actuati the on HFAA evening. budesonide- 3-0 Yes [id number] 2{puff} Inhale 2 [facility] glycopyr-fo 3-20 Puffs in ity of rmoterol 00:00: the [place] ([facility] Medical AEROSPHERE) and 2 Branch 160-9-4.8 Puffs in mcg/actuati the on HFAA evening. budesonide- 3-0 Yes [id number] 2{puff} Inhale 2 [facility] glycopyr-fo 3-20 Puffs in ity of rmoterol 00:00: the [place] ([facility] and 2 Branch 160-9-4.8 Puffs in mcg/actuati the on HFAA evening. budesonide- 2022-0 Yes [id number] 2{puff} Inhale 2 [facility] glycopyr-fo 3-20 Puffs in ity of rmoterol 00:00: the [place] ([facility] and 2 Branch 160-9-4.8 Puffs in mcg/actuati the on HFAA evening. budesonide- 3-0 Yes [id number] 2{puff} Inhale 2 [facility] glycopyr-fo 3-20 Puffs in ity of rmoterol 00:00: the [place] ([facility] and 2 Branch 160-9-4.8 Puffs in mcg/actuati the on HFAA evening. budesonide- 3-0 Yes [id number] 2{puff} Inhale 2 [facility] glycopyr-fo 3-20 Puffs in ity of rmoterol 00:00: the [place] ([facility] and 2 Branch 160-9-4.8 Puffs in mcg/actuati the on HFAA evening. budesonide- 3-0 Yes [id number] 2{puff} Inhale 2 [facility] glycopyr-fo 3-20 Puffs in ity of rmoterol 00:00: the [place] ([facility] 00 morning Medical AEROSPHERE) and 2 Branch 160-9-4.8 Puffs in mcg/actuati the on HFAA evening. budesonide- 3-0 Yes [id number] 2{puff} Inhale 2 [facility] glycopyr-fo 3-20 Puffs in ity of rmoterol 00:00: the [place] ([facility] 00 morning Medical AEROSPHERE) and 2 Branch 160-9-4.8 Puffs in mcg/actuati the on HFAA evening. budesonide- 3-0 Yes [id number] 2{puff} Inhale 2 [facility] glycopyr-fo 3-20 Puffs in ity of rmoterol 00:00: the [place] ([facility] 00 morning Medical AEROSPHERE) and 2 Branch 160-9-4.8 Puffs in mcg/actuati the on HFAA evening. budesonide- 3-0 Yes [id number] 2{puff} Inhale 2 [facility] glycopyr-fo 3-20 Puffs in ity of rmoterol 00:00: the [place] ([facility] 00 morning Medical AEROSPHERE) and 2 Branch 160-9-4.8 Puffs in mcg/actuati the on HFAA evening. budesonide- 3-0 Yes [id number] 2{puff} Inhale 2 [facility] glycopyr-fo 3-20 Puffs in ity of rmoterol 00:00: the [place] ([facility] 00 morning Medical AEROSPHERE) and 2 Branch 160-9-4.8 Puffs in mcg/actuati the on HFAA evening. budesonide- 3-0 Yes [id number] 2{puff} Inhale 2 [facility] glycopyr-fo 3-20 Puffs in ity of rmoterol 00:00: the [place] ([facility] 00 morning Medical AEROSPHERE) and 2 Branch 160-9-4.8 Puffs in mcg/actuati the on HFAA evening. budesonide- 3-0 Yes [id number] 2{puff} Inhale 2 [facility] glycopyr-fo 3-20 Puffs in ity of rmoterol 00:00: the [place] ([facility] 00 morning Medical AEROSPHERE) and 2 Branch 160-9-4.8 Puffs in mcg/actuati the on HFAA evening. budesonide- 2023-0 Yes [id number] 2{puff} Inhale 2 [facility] glycopyr-fo 3-20 Puffs in ity of rmoterol 00:00: the [place] ([facility] 00 [facility] Medical AEROSPHERE) and 2 Branch 160-9-4.8 Puffs in mcg/actuati the on HFAA evening. budesonide- 3-0 Yes [id number] 2{puff} Inhale 2 [facility] glycopyr-fo 3-20 Puffs in ity of rmoterol 00:00: the [place] ([facility] Medical AEROSPHERE) and 2 Branch 160-9-4.8 Puffs in mcg/actuati the on HFAA evening. budesonide- 3-0 Yes [id number] 2{puff} Inhale 2 [facility] glycopyr-fo 3-20 Puffs in ity of rmoterol 00:00: the [place] ([facility] and 2 Branch 160-9-4.8 Puffs in mcg/actuati the on HFAA evening. budesonide- 3-0 Yes [id number] 2{puff} Inhale 2 [facility] glycopyr-fo 3-20 Puffs in ity of rmoterol 00:00: the [place] ([facility] and 2 Branch 160-9-4.8 Puffs in mcg/actuati the on HFAA evening. budesonide- 3-0 Yes [id number] 2{puff} Inhale 2 [facility] glycopyr-fo 3-20 Puffs in ity of rmoterol 00:00: the [place] ([facility] and 2 Branch 160-9-4.8 Puffs in mcg/actuati the on HFAA evening. budesonide- 3-0 Yes [id number] 2{puff} Inhale 2 [facility] glycopyr-fo 3-20 Puffs in ity of rmoterol 00:00: the [place] ([facility] and 2 Branch 160-9-4.8 Puffs in mcg/actuati the on HFAA evening. budesonide- 2023-0 Yes [id number] 2{puff} Inhale 2 [facility] glycopyr-fo 3-20 Puffs in ity of rmoterol 00:00: the [place] ([facility] 00 morning Medical AEROSPHERE) and 2 Branch 160-9-4.8 Puffs in mcg/actuati the on HFAA evening. budesonide- 2023-0 Yes [id number] 2{puff} Inhale 2 [facility] glycopyr-fo 3-20 Puffs in ity of rmoterol 00:00: the [place] ([facility] 00 morning Medical AEROSPHERE) and 2 Branch 160-9-4.8 Puffs in mcg/actuati the on HFAA evening. budesonide- 3-0 Yes [id number] 2{puff} Inhale 2 [facility] glycopyr-fo 3-20 Puffs in ity of rmoterol 00:00: the [place] ([facility] 00 morning Medical AEROSPHERE) and 2 Branch 160-9-4.8 Puffs in mcg/actuati the on HFAA evening. budesonide- 3-0 Yes [id number] 2{puff} Inhale 2 [facility] glycopyr-fo 3-20 Puffs in ity of rmoterol 00:00: the [place] ([facility] 00 morning Medical AEROSPHERE) and 2 Branch 160-9-4.8 Puffs in mcg/actuati the on HFAA evening. budesonide- 3-0 Yes [id number] 2{puff} Inhale 2 [facility] glycopyr-fo 3-20 Puffs in ity of rmoterol 00:00: the [place] ([facility] 00 morning Medical AEROSPHERE) and 2 Branch 160-9-4.8 Puffs in mcg/actuati the on HFAA evening. budesonide- 2023-0 Yes [id number] 2{puff} Inhale 2 [facility] glycopyr-fo 3-20 Puffs in ity of rmoterol 00:00: the [place] ([facility] 00 morning Medical AEROSPHERE) and 2 Branch 160-9-4.8 Puffs in mcg/actuati the on HFAA evening. budesonide- 2023-0 Yes [id number] 2{puff} Inhale 2 [facility] glycopyr-fo 3-20 Puffs in ity of rmoterol 00:00: the [place] ([facility] 00 morning Medical AEROSPHERE) and 2 Branch 160-9-4.8 Puffs in mcg/actuati the on HFAA evening. budesonide- 2023-0 Yes [id number] 2{puff} Inhale 2 [facility] glycopyr-fo 3-20 Puffs in ity of rmoterol 00:00: the [place] ([facility] 00 [facility] Medical AEROSPHERE) and 2 Branch 160-9-4.8 Puffs in mcg/actuati the on HFAA evening. budesonide- 2023-0 Yes [id number] 2{puff} Inhale 2 [facility] glycopyr-fo 3-20 Puffs in ity of rmoterol 00:00: the [place] ([facility] 00 morning Medical AEROSPHERE) and 2 Branch 160-9-4.8 Puffs in mcg/actuati the on HFAA evening. budesonide- 2023-0 Yes [id number] 2{puff} Inhale 2 [facility] glycopyr-fo 3-20 Puffs in ity of rmoterol 00:00: the [place] ([facility] and 2 Branch 160-9-4.8 Puffs in mcg/actuati the on HFAA evening. budesonide- 2023-0 Yes [id number] 2{puff} Inhale 2 [facility] glycopyr-fo 3-20 Puffs in ity of rmoterol 00:00: the [place] ([facility] 00 [facility] Medical AEROSPHERE) and 2 Branch 160-9-4.8 Puffs in mcg/actuati the on HFAA evening. budesonide- 2023-0 Yes [id number] 2{puff} Inhale 2 [facility] glycopyr-fo 3-20 Puffs in ity of rmoterol 00:00: the [place] ([facility] 00 [facility] Medical AEROSPHERE) and 2 Branch 160-9-4.8 Puffs in mcg/actuati the on HFAA evening. budesonide- 2023-0 Yes [id number] 2{puff} Inhale 2 [facility] glycopyr-fo 3-20 Puffs in ity of rmoterol 00:00: the [place] ([facility] and 2 Branch 160-9-4.8 Puffs in mcg/actuati the on HFAA evening. budesonide- 2023-0 Yes [id number] 2{puff} Inhale 2 [facility] glycopyr-fo 3-20 Puffs in ity of rmoterol 00:00: the [place] ([facility] Medical AEROSPHERE) and 2 Branch 160-9-4.8 Puffs in mcg/actuati the on HFAA evening. budesonide- 2023-0 Yes [id number] 2{puff} Inhale 2 Univers glycopyr-fo 3-20 Puffs in ity of rmoterol 00:00: the [place] ([facility] Medical AEROSPHERE) and 2 Branch 160-9-4.8 Puffs in mcg/actuati the on HFAA evening. budesonide- 3-0 Yes [id number] 2{puff} Inhale 2 [facility] glycopyr-fo 3-20 Puffs in ity of rmoterol 00:00: the [place] ([facility] and 2 Branch 160-9-4.8 Puffs in mcg/actuati the on HFAA evening. budesonide- 3-0 Yes [id number] 2{puff} Inhale 2 [facility] glycopyr-fo 3-20 Puffs in ity of rmoterol 00:00: the [place] ([facility] and 2 Branch 160-9-4.8 Puffs in mcg/actuati the on HFAA evening. budesonide- 3-0 Yes [id number] 2{puff} Inhale 2 [facility] glycopyr-fo 3-20 Puffs in ity of rmoterol 00:00: the [place] ([facility] and 2 Branch 160-9-4.8 Puffs in mcg/actuati the on HFAA evening. budesonide- 3-0 Yes [id number] 2{puff} Inhale 2 [facility] glycopyr-fo 3-20 Puffs in ity of rmoterol 00:00: the [place] ([facility] and 2 Branch 160-9-4.8 Puffs in mcg/actuati the on HFAA evening. budesonide- 3-0 Yes [id number] 2{puff} Inhale 2 Univers glycopyr-fo 3-20 Puffs in ity of rmoterol 00:00: the [place] ([facility] 00 morning Medical AEROSPHERE) and 2 Branch 160-9-4.8 Puffs in mcg/actuati the on HFAA evening. budesonide- 2023-0 Yes [id number] 2{puff} Inhale 2 [facility] glycopyr-fo 3-20 Puffs in ity of rmoterol 00:00: the [place] ([facility] 00 morning Medical AEROSPHERE) and 2 Branch 160-9-4.8 Puffs in mcg/actuati the on HFAA evening. budesonide- 2023-0 Yes [id number] 2{puff} Inhale 2 [facility] glycopyr-fo 3-20 Puffs in ity of rmoterol 00:00: the [place] ([facility] 00 morning Medical AEROSPHERE) and 2 Branch 160-9-4.8 Puffs in mcg/actuati the on HFAA evening. budesonide- 3-0 Yes [id number] 2{puff} Inhale 2 [facility] glycopyr-fo 3-20 Puffs in ity of rmoterol 00:00: the [place] ([facility] 00 morning Medical AEROSPHERE) and 2 Branch 160-9-4.8 Puffs in mcg/actuati the on HFAA evening. budesonide- 3-0 Yes [id number] 2{puff} Inhale 2 [facility] glycopyr-fo 3-20 Puffs in ity of rmoterol 00:00: the [place] ([facility] 00 morning Medical AEROSPHERE) and 2 Branch 160-9-4.8 Puffs in mcg/actuati the on HFAA evening. budesonide- 2023-0 Yes [id number] 2{puff} Inhale 2 [facility] glycopyr-fo 3-20 Puffs in ity of rmoterol 00:00: the [place] ([facility] 00 morning Medical AEROSPHERE) and 2 Branch 160-9-4.8 Puffs in mcg/actuati the on HFAA evening. budesonide- 2023-0 Yes [id number] 2{puff} Inhale 2 [facility] glycopyr-fo 3-20 Puffs in ity of rmoterol 00:00: the [place] ([facility] 00 morning Medical AEROSPHERE) and 2 Branch 160-9-4.8 Puffs in mcg/actuati the on HFAA evening. budesonide- 3-0 Yes [id number] 2{puff} Inhale 2 Univers glycopyr-fo 3-20 Puffs in ity of rmoterol 00:00: the [place] ([facility] and 2 Branch 160-9-4.8 Puffs in mcg/actuati the on HFAA evening. budesonide- 3-0 Yes [id number] 2{puff} Inhale 2 Univers glycopyr-fo 3-20 Puffs in ity of rmoterol 00:00: the [place] [facility]) and 2 Branch 160-9-4.8 Puffs in mcg/actuati the on HFAA evening. budesonide- 3-0 Yes [id number] 2{puff} Inhale 2 Univers glycopyr-fo 3-20 Puffs in ity of rmoterol 00:00: the [place] [facility] and 2 Branch 160-9-4.8 Puffs in mcg/actuati the on HFAA evening. budesonide- 2022-0 Yes [id number] 2{puff} Inhale 2 Univers glycopyr-fo 3-20 Puffs in ity of rmoterol 00:00: the [place] ([facility] and 2 Branch 160-9-4.8 Puffs in mcg/actuati the on HFAA evening. budesonide- 3-0 Yes [id number] 2{puff} Inhale 2 Univers glycopyr-fo 3-20 Puffs in ity of rmoterol 00:00: the [place] ([facility] and 2 Branch 160-9-4.8 Puffs in mcg/actuati the on HFAA evening. budesonide- 3-0 Yes [id number] 2{puff} Inhale 2 Univers glycopyr-fo 3-20 Puffs in ity of rmoterol 00:00: the [place] ([facility] and 2 Branch 160-9-4.8 Puffs in mcg/actuati the on HFAA evening. budesonide- 3-0 Yes [id number] 2{puff} Inhale 2 Univers glycopyr-fo 3-20 Puffs in ity of rmoterol 00:00: the [place] ([facility] 00 morning Medical AEROSPHERE) and 2 Branch 160-9-4.8 Puffs in mcg/actuati the on HFAA evening. budesonide- 3-0 Yes [id number] 2{puff} Inhale 2 Univers glycopyr-fo 3-20 Puffs in ity of rmoterol 00:00: the [place] ([facility] 00 morning Medical AEROSPHERE) and 2 Branch 160-9-4.8 Puffs in mcg/actuati the on HFAA evening. budesonide- 3-0 Yes [id number] 2{puff} Inhale 2 Univers glycopyr-fo 3-20 Puffs in ity of rmoterol 00:00: the [place] ([facility] 00 morning Medical AEROSPHERE) and 2 Branch 160-9-4.8 Puffs in mcg/actuati the on HFAA evening. budesonide- 3-0 Yes [id number] 2{puff} Inhale 2 Univers glycopyr-fo 3-20 Puffs in ity of rmoterol 00:00: the [place] ([facility] 00 morning Medical AEROSPHERE) and 2 Branch 160-9-4.8 Puffs in mcg/actuati the on HFAA evening. budesonide- 3-0 Yes [id number] 2{puff} Inhale 2 Univers glycopyr-fo 3-20 Puffs in ity of rmoterol 00:00: the [place] ([facility] 00 morning Medical AEROSPHERE) and 2 Branch 160-9-4.8 Puffs in mcg/actuati the on HFAA evening. budesonide- 3-0 Yes [id number] 2{puff} Inhale 2 Univers glycopyr-fo 3-20 Puffs in ity of rmoterol 00:00: the [place] ([facility] 00 morning Medical AEROSPHERE) and 2 Branch 160-9-4.8 Puffs in mcg/actuati the on HFAA evening. budesonide- 2023-0 Yes [id number] 2{puff} Inhale 2 Univers glycopyr-fo 3-20 Puffs in ity of rmoterol 00:00: the [place] ([facility] 00 morning Medical AEROSPHERE) and 2 Branch 160-9-4.8 Puffs in mcg/actuati the on HFAA evening. budesonide- 2023-0 Yes [id number] 2{puff} Inhale 2 Univers glycopyr-fo 3-20 Puffs in ity of rmoterol 00:00: the [place] ([facility] 00 [facility]) and 2 Branch 160-9-4.8 Puffs in mcg/actuati the on HFAA evening. budesonide- 3-0 Yes [id number] 2{puff} Inhale 2 [facility] glycopyr-fo 3-20 Puffs in ity of rmoterol 00:00: the [place] ([facility] 00 morning Medical AEROSPHERE) and 2 Branch 160-9-4.8 Puffs in mcg/actuati the on HFAA evening. budesonide- 3-0 Yes [id number] 2{puff} Inhale 2 Univers glycopyr-fo 3-20 Puffs in ity of rmoterol 00:00: the [place] ([facility]) and 2 Branch 160-9-4.8 Puffs in mcg/actuati the on HFAA evening. budesonide- 3-0 Yes [id number] 2{puff} Inhale 2 Univers glycopyr-fo 3-20 Puffs in ity of rmoterol 00:00: the [place] ([facility]) and 2 Branch 160-9-4.8 Puffs in mcg/actuati the on HFAA evening. budesonide- 3-0 Yes [id number] 2{puff} Inhale 2 Univers glycopyr-fo 3-20 Puffs in ity of rmoterol 00:00: the [place] ([facility] 00 [facility]) and 2 Branch 160-9-4.8 Puffs in mcg/actuati the on HFAA evening. budesonide- 3-0 Yes [id number] 2{puff} Inhale 2 Univers glycopyr-fo 3-20 Puffs in ity of rmoterol 00:00: the [place] ([facility]) and 2 Branch 160-9-4.8 Puffs in mcg/actuati the on HFAA evening. budesonide- 3-0 Yes [id number] 2{puff} Inhale 2 Univers glycopyr-fo 3-20 Puffs in ity of rmoterol 00:00: the [place] ([facility] morning Medical AEROSPHERE) and 2 Branch 160-9-4.8 Puffs in mcg/actuati the on HFAA evening. budesonide- 3-0 Yes [id number] 2{puff} Inhale 2 Univers glycopyr-fo 3-20 Puffs in ity of rmoterol 00:00: the [place] ([facility]) and 2 Branch 160-9-4.8 Puffs in mcg/actuati the on HFAA evening. budesonide- 3-0 Yes [id number] 2{puff} Inhale 2 Univers glycopyr-fo 3-20 Puffs in ity of rmoterol 00:00: the [place] ([facility]) and 2 Branch 160-9-4.8 Puffs in mcg/actuati the on HFAA evening. budesonide- 3-0 Yes [id number] 2{puff} Inhale 2 [facility] glycopyr-fo 3-20 Puffs in ity of rmoterol 00:00: the [place] ([facility]) and 2 Branch 160-9-4.8 Puffs in mcg/actuati the on HFAA evening. budesonide- 3-0 Yes [id number] 2{puff} Inhale 2 Univers glycopyr-fo 3-20 Puffs in ity of rmoterol 00:00: the [place] ([facility]) and 2 Branch 160-9-4.8 Puffs in mcg/actuati the on HFAA evening. budesonide- 3-0 Yes [id number] 2{puff} Inhale 2 Univers glycopyr-fo 3-20 Puffs in ity of rmoterol 00:00: the [place] ([facility]) and 2 Branch 160-9-4.8 Puffs in mcg/actuati the on HFAA evening. budesonide- 3-0 Yes [id number] 2{puff} Inhale 2 Univers glycopyr-fo 3-20 Puffs in ity of rmoterol 00:00: the [place] ([facility] 00 morning Medical AEROSPHERE) and 2 Branch 160-9-4.8 Puffs in mcg/actuati the on HFAA evening. budesonide- 2023-0 Yes [id number] 2{puff} Inhale 2 Univers glycopyr-fo 3-20 Puffs in ity of rmoterol 00:00: the [place] ([facility] 00 morning Medical AEROSPHERE) and 2 Branch 160-9-4.8 Puffs in mcg/actuati the on HFAA evening. budesonide- 2023-0 Yes [id number] 2{puff} Inhale 2 Univers glycopyr-fo 3-20 Puffs in ity of rmoterol 00:00: the [place] ([facility] 00 morning Medical AEROSPHERE) and 2 Branch 160-9-4.8 Puffs in mcg/actuati the on HFAA evening. budesonide- 2023-0 Yes [id number] 2{puff} Inhale 2 Univers glycopyr-fo 3-20 Puffs in ity of rmoterol 00:00: the [place] ([facility] 00 morning Medical AEROSPHERE) and 2 Branch 160-9-4.8 Puffs in mcg/actuati the on HFAA evening. budesonide- 2023-0 Yes [id number] 2{puff} Inhale 2 Univers glycopyr-fo 3-20 Puffs in ity of rmoterol 00:00: the [place] ([facility] 00 morning Medical AEROSPHERE) and 2 Branch 160-9-4.8 Puffs in mcg/actuati the on HFAA evening. budesonide- 3-0 Yes [id number] 2{puff} Inhale 2 Univers glycopyr-fo 3-20 Puffs in ity of rmoterol 00:00: the [place] ([facility] 00 morning Medical AEROSPHERE) and 2 Branch 160-9-4.8 Puffs in mcg/actuati the on HFAA evening. budesonide- 2023-0 Yes [id number] 2{puff} Inhale 2 Univers glycopyr-fo 3-20 Puffs in ity of rmoterol 00:00: the [place] ([facility] 00 morning Medical AEROSPHERE) and 2 Branch 160-9-4.8 Puffs in mcg/actuati the on HFAA evening. budesonide- 2023-0 Yes [id number] 2{puff} Inhale 2 Univers glycopyr-fo 3-20 Puffs in ity of rmoterol 00:00: the [place] ([facility] 00 [facility] AER[facility]) and 2 Branch 160-9-4.8 Puffs in mcg/actuati the on HFAA evening. budesonide- 3-0 Yes [id number] 2{puff} Inhale 2 [facility] glycopyr-fo 3-20 Puffs in ity of rmoterol 00:00: the [place] ([facility] 00 [facility] AEROS[facility]ERE) and 2 Branch 160-9-4.8 Puffs in mcg/actuati the on HFAA evening. budesonide- 3-0 Yes [id number] 2{puff} Inhale 2 Univers glycopyr-fo 3-20 Puffs in ity of rmoterol 00:00: the [place] ([facility] and 2 Branch 160-9-4.8 Puffs in mcg/actuati the on HFAA evening. budesonide- 3-0 Yes [id number] 2{puff} Inhale 2 Univers glycopyr-fo 3-20 Puffs in ity of rmoterol 00:00: the [place] ([facility] A[facility]) and 2 Branch 160-9-4.8 Puffs in mcg/actuati the on HFAA evening. budesonide- 3-0 Yes [id number] 2{puff} Inhale 2 Univers glycopyr-fo 3-20 Puffs in ity of rmoterol 00:00: the [place] ([facility] and 2 Branch 160-9-4.8 Puffs in mcg/actuati the on HFAA evening. budesonide- 2023-0 Yes [id number] 2{puff} Inhale 2 Univers glycopyr-fo 3-20 Puffs in ity of rmoterol 00:00: the [place] ([facility] and 2 Branch 160-9-4.8 Puffs in mcg/actuati the on HFAA evening. budesonide- 3-0 Yes [id number] 2{puff} Inhale 2 Univers glycopyr-fo 3-20 Puffs in ity of rmoterol 00:00: the [place] ([facility] 00 morning Medical AEROSPHERE) and 2 Branch 160-9-4.8 Puffs in mcg/actuati the on HFAA evening. budesonide- 3-0 Yes [id number] 2{puff} Inhale 2 Univers glycopyr-fo 3-20 Puffs in ity of rmoterol 00:00: the [place] ([facility] 00 morning Medical AEROSPHERE) and 2 Branch 160-9-4.8 Puffs in mcg/actuati the on HFAA evening. budesonide- 3-0 Yes [id number] 2{puff} Inhale 2 Univers glycopyr-fo 3-20 Puffs in ity of rmoterol 00:00: the [place] ([facility] 00 morning Medical AEROSPHERE) and 2 Branch 160-9-4.8 Puffs in mcg/actuati the on HFAA evening. budesonide- 3-0 Yes [id number] 2{puff} Inhale 2 Univers glycopyr-fo 3-20 Puffs in ity of rmoterol 00:00: the [place] ([facility] 00 morning Medical AEROSPHERE) and 2 Branch 160-9-4.8 Puffs in mcg/actuati the on HFAA evening. budesonide- 3-0 Yes [id number] 2{puff} Inhale 2 Univers glycopyr-fo 3-20 Puffs in ity of rmoterol 00:00: the [place] ([facility] 00 morning Medical AEROSPHERE) and 2 Branch 160-9-4.8 Puffs in mcg/actuati the on HFAA evening. budesonide- 3-0 Yes [id number] 2{puff} Inhale 2 Univers glycopyr-fo 3-20 Puffs in ity of rmoterol 00:00: the [place] ([facility] 00 morning Medical AEROSPHERE) and 2 Branch 160-9-4.8 Puffs in mcg/actuati the on HFAA evening. budesonide- 3-0 Yes [id number] 2{puff} Inhale 2 Univers glycopyr-fo 3-20 Puffs in ity of rmoterol 00:00: the [place] ([facility] 00 morning Medical AEROSPHERE) and 2 Branch 160-9-4.8 Puffs in mcg/actuati the on HFAA evening. budesonide- 2023-0 Yes [id number] 2{puff} Inhale 2 Univers glycopyr-fo 3-20 Puffs in ity of rmoterol 00:00: the [place] ([facility] and 2 Branch 160-9-4.8 Puffs in mcg/actuati the on HFAA evening. budesonide- 3-0 Yes [id number] 2{puff} Inhale 2 Univers glycopyr-fo 3-20 Puffs in ity of rmoterol 00:00: the [place] ([facility] and 2 Branch 160-9-4.8 Puffs in mcg/actuati the on HFAA evening. budesonide- 3-0 Yes [id number] 2{puff} Inhale 2 Univers glycopyr-fo 3-20 Puffs in ity of rmoterol 00:00: the [place] ([facility]) and 2 Branch 160-9-4.8 Puffs in mcg/actuati the on HFAA evening. budesonide- 2023-0 Yes [id number] 2{puff} Inhale 2 Univers glycopyr-fo 3-20 Puffs in ity of rmoterol 00:00: the [place] ([facility] and 2 Branch 160-9-4.8 Puffs in mcg/actuati the on HFAA evening. budesonide- 3-0 Yes [id number] 2{puff} Inhale 2 Univers glycopyr-fo 3-20 Puffs in ity of rmoterol 00:00: the [place] ([facility] and 2 Branch 160-9-4.8 Puffs in mcg/actuati the on HFAA evening. budesonide- 2023-0 Yes [id number] 2{puff} Inhale 2 Univers glycopyr-fo 3-20 Puffs in ity of rmoterol 00:00: the [place] ([facility] 00 [facility]) and 2 Branch 160-9-4.8 Puffs in mcg/actuati the on HFAA evening. budesonide- 2023-0 Yes [id number] 2{puff} Inhale 2 Univers glycopyr-fo 3-20 Puffs in ity of rmoterol 00:00: the [place] ([facility] 00 morning Medical AEROSPHERE) and 2 Branch 160-9-4.8 Puffs in mcg/actuati the on HFAA evening. budesonide- 2023-0 Yes [id number] 2{puff} Inhale 2 Univers glycopyr-fo 3-20 Puffs in ity of rmoterol 00:00: the [place] ([facility] 00 morning Medical AEROSPHERE) and 2 Branch 160-9-4.8 Puffs in mcg/actuati the on HFAA evening. budesonide- 3-0 Yes [id number] 2{puff} Inhale 2 Univers glycopyr-fo 3-20 Puffs in ity of rmoterol 00:00: the [place] ([facility]) and 2 Branch 160-9-4.8 Puffs in mcg/actuati the on HFAA evening. budesonide- 3-0 Yes [id number] 2{puff} Inhale 2 Univers glycopyr-fo 3-20 Puffs in ity of rmoterol 00:00: the [place] ([facility] 00 morning Medical AEROSPHERE) and 2 Branch 160-9-4.8 Puffs in mcg/actuati the on HFAA evening. budesonide- 3-0 Yes [id number] 2{puff} Inhale 2 Univers glycopyr-fo 3-20 Puffs in ity of rmoterol 00:00: the [place] ([facility]) and 2 Branch 160-9-4.8 Puffs in mcg/actuati the on HFAA evening. budesonide- 3-0 Yes [id number] 2{puff} Inhale 2 Univers glycopyr-fo 3-20 Puffs in ity of rmoterol 00:00: the [place] ([facility]) and 2 Branch 160-9-4.8 Puffs in mcg/actuati the on HFAA evening. budesonide- 2023-0 Yes [id number] 2{puff} Inhale 2 Univers glycopyr-fo 3-20 Puffs in ity of rmoterol 00:00: the [place] ([facility] 00 morning Medical AEROSPHERE) and 2 Branch 160-9-4.8 Puffs in mcg/actuati the on HFAA evening. budesonide- 3-0 Yes [id number] 2{puff} Inhale 2 Univers glycopyr-fo 3-20 Puffs in ity of rmoterol 00:00: the [place] ([facility] 00 morning Medical AEROSPHERE) and 2 Branch 160-9-4.8 Puffs in mcg/actuati the on HFAA evening. budesonide- 3-0 Yes [id number] 2{puff} Inhale 2 Univers glycopyr-fo 3-20 Puffs in ity of rmoterol 00:00: the [place] ([facility] 00 morning Medical AEROSPHERE) and 2 Branch 160-9-4.8 Puffs in mcg/actuati the on HFAA evening. budesonide- 3-0 Yes [id number] 2{puff} Inhale 2 Univers glycopyr-fo 3-20 Puffs in ity of rmoterol 00:00: the [place] ([facility] 00 morning Medical AEROSPHERE) and 2 Branch 160-9-4.8 Puffs in mcg/actuati the on HFAA evening. budesonide- 3-0 Yes [id number] 2{puff} Inhale 2 Univers glycopyr-fo 3-20 Puffs in ity of rmoterol 00:00: the [place] ([facility] 00 morning Medical AEROSPHERE) and 2 Branch 160-9-4.8 Puffs in mcg/actuati the on HFAA evening. budesonide- 3-0 Yes [id number] 2{puff} Inhale 2 Univers glycopyr-fo 3-20 Puffs in ity of rmoterol 00:00: the [place] ([facility] 00 morning Medical AEROSPHERE) and 2 Branch 160-9-4.8 Puffs in mcg/actuati the on HFAA evening. budesonide- 3-0 Yes [id number] 2{puff} Inhale 2 Univers glycopyr-fo 3-20 Puffs in ity of rmoterol 00:00: the [place] ([facility] 00 morning Medical AEROSPHERE) and 2 Branch 160-9-4.8 Puffs in mcg/actuati the on HFAA evening. budesonide- 3-0 Yes [id number] 2{puff} Inhale 2 Univers glycopyr-fo 3-20 Puffs in ity of rmoterol 00:00: the [place] ([facility] 00 morning Medical AEROSPHERE) and 2 Branch 160-9-4.8 Puffs in mcg/actuati the on HFAA evening. budesonide- 3-0 Yes [id number] 2{puff} Inhale 2 Univers glycopyr-fo 3-20 Puffs in ity of rmoterol 00:00: the [place] ([facility] 00 morning Medical AEROSPHERE) and 2 Branch 160-9-4.8 Puffs in mcg/actuati the on HFAA evening. budesonide- 3-0 Yes [id number] 2{puff} Inhale 2 Univers glycopyr-fo 3-20 Puffs in ity of rmoterol 00:00: the [place] ([facility] A[facility]) and 2 Branch 160-9-4.8 Puffs in mcg/actuati the on HFAA evening. budesonide- 2022-0 Yes [id number] 2{puff} Inhale 2 Univers glycopyr-fo 3-20 Puffs in ity of rmoterol 00:00: the [place] ([facility]) and 2 Branch 160-9-4.8 Puffs in mcg/actuati the on HFAA evening. budesonide- 3-0 Yes [id number] 2{puff} Inhale 2 Univers glycopyr-fo 3-20 Puffs in ity of rmoterol 00:00: the [place] ([facility]) and 2 Branch 160-9-4.8 Puffs in mcg/actuati the on HFAA evening. budesonide- 3-0 Yes [id number] 2{puff} Inhale 2 Univers glycopyr-fo 3-20 Puffs in ity of rmoterol 00:00: the [place] ([facility]) and 2 Branch 160-9-4.8 Puffs in mcg/actuati the on HFAA evening. budesonide- 3-0 Yes [id number] 2{puff} Inhale 2 Univers glycopyr-fo 3-20 Puffs in ity of rmoterol 00:00: the [place] ([facility] 00 morning Medical AEROSPHERE) and 2 Branch 160-9-4.8 Puffs in mcg/actuati the on HFAA evening. budesonide- 2023-0 Yes [id number] 2{puff} Inhale 2 Univers glycopyr-fo 3-20 Puffs in ity of rmoterol 00:00: the [place] ([facility] 00 morning Medical AEROSPHERE) and 2 Branch 160-9-4.8 Puffs in mcg/actuati the on HFAA evening. budesonide- 3-0 Yes [id number] 2{puff} Inhale 2 Univers glycopyr-fo 3-20 Puffs in ity of rmoterol 00:00: the [place] ([facility] 00 morning Medical AEROSPHERE) and 2 Branch 160-9-4.8 Puffs in mcg/actuati the on HFAA evening. budesonide- 3-0 Yes [id number] 2{puff} Inhale 2 Univers glycopyr-fo 3-20 Puffs in ity of rmoterol 00:00: the [place] ([facility] 00 morning Medical AEROSPHERE) and 2 Branch 160-9-4.8 Puffs in mcg/actuati the on HFAA evening. budesonide- 3-0 Yes [id number] 2{puff} Inhale 2 Univers glycopyr-fo 3-20 Puffs in ity of rmoterol 00:00: the [place] ([facility] 00 morning Medical AEROSPHERE) and 2 Branch 160-9-4.8 Puffs in mcg/actuati the on HFAA evening. budesonide- 3-0 Yes [id number] 2{puff} Inhale 2 Univers glycopyr-fo 3-20 Puffs in ity of rmoterol 00:00: the [place] ([facility] 00 morning Medical AEROSPHERE) and 2 Branch 160-9-4.8 Puffs in mcg/actuati the on HFAA evening. budesonide- 3-0 Yes [id number] 2{puff} Inhale 2 Univers glycopyr-fo 3-20 Puffs in ity of rmoterol 00:00: the [place] ([facility] 00 morning Medical AEROSPHERE) and 2 Branch 160-9-4.8 Puffs in mcg/actuati the on HFAA evening. budesonide- 2023-0 Yes [id number] 2{puff} Inhale 2 Univers glycopyr-fo 3-20 Puffs in ity of rmoterol 00:00: the [place] ([facility] 00 morning Medical AEROSPHERE) and 2 Branch 160-9-4.8 Puffs in mcg/actuati the on HFAA evening. budesonide- 2023-0 Yes [id number] 2{puff} Inhale 2 Univers glycopyr-fo 3-20 Puffs in ity of rmoterol 00:00: the [place] ([facility] 00 morning Medical AEROSPHERE) and 2 Branch 160-9-4.8 Puffs in mcg/actuati the on HFAA evening. budesonide- 2023-0 Yes [id number] 2{puff} Inhale 2 Univers glycopyr-fo 3-20 Puffs in ity of rmoterol 00:00: the [place] ([facility] morning Medical AEROSPHERE) and 2 Branch 160-9-4.8 Puffs in mcg/actuati the on HFAA evening. budesonide- 2023-0 Yes [id number] 2{puff} Inhale 2 Univers glycopyr-fo 3-20 Puffs in ity of rmoterol 00:00: the [place] ([facility] morning Medical AEROSPHERE) and 2 Branch 160-9-4.8 Puffs in mcg/actuati the on HFAA evening. ESOMEPRAZOL 2022- No 20mg Take 20 mg Univers E MAG 09-15- by mouth ity of TRIHYDRATE 07:53: 00:00 [...] :00 Medical ORAL) Branch esomeprazol 2022-0 Yes [id number] 20mg Take 20 mg Univers e 20 mg 2-28 by mouth ity of capsule 00:00: daily [place] 00 before a Medical meal. Branch esomeprazol 2022-0 Yes [id number] 20mg Take 20 mg Univers e 20 mg 2-28 by mouth ity of capsule 00:00: daily [place] 00 before a Medical meal. Branch esomeprazol 2022-0 Yes [id number] 20mg Take 20 mg Univers e 20 mg 2-28 by mouth ity of capsule 00:00: daily [place] 00 before a Medical meal. Branch esomeprazol 2022-0 Yes [id number] 20mg Take 20 mg Univers e 20 mg 2-28 by mouth ity of capsule 00:00: daily [place] 00 before a Medical meal. Branch esomeprazol 2022-0 Yes [id number] 20mg Take 20 mg Univers e 20 mg 2-28 by mouth ity of capsule 00:00: daily [place] 00 before a Medical meal. Branch esomeprazol 2022-0 Yes [id number] 20mg Take 20 mg Univers e 20 mg 2-28 by mouth ity of capsule 00:00: daily [place] 00 before a Medical meal. Branch esomeprazol 2022-0 Yes [id number] 20mg Take 20 mg Univers e 20 mg 2-28 by mouth ity of capsule 00:00: daily [place] 00 before a Medical meal. Branch esomeprazol 2022-0 Yes [id number] 20mg Take 20 mg Univers e 20 mg 2-28 by mouth ity of capsule 00:00: daily [place] 00 before a Medical meal. Branch esomeprazol 2022-0 Yes [id number] 20mg Take 20 mg Univers e 20 mg 2-28 by mouth ity of capsule 00:00: daily [place] 00 before a Medical meal. Branch esomeprazol 2022-0 Yes [id number] 20mg Take 20 mg Univers e 20 mg 2-28 by mouth ity of capsule 00:00: daily [place] 00 before a Medical meal. Branch esomeprazol Yes [id number] 20mg Take 20 mg Univers e 20 mg 2-28 by mouth ity of capsule 00:00: daily [place] 00 before a Medical meal. [place] esomeprazol Yes [id number] 20mg Take 20 mg Univers e 20 mg 2-28 by mouth ity of capsule 00:00: daily [place] 00 before a Medical meal. [place]ine esomeprazol 2022- No [id number] 20mg Take 20 mg Univers e 20 mg 2-28 03-24 by mouth ity of capsule 00:00: 00:00 daily [place] 00 :00 before a Medical meal. Geraldine [facility] 100 2022- No 12 ml BID U nivers MG/ML ORAL 08-19 , per mom ity of SOLN 09:36: 00:00 [place] 06 :00 [facility] 100 0 2022- No 12 ml BID U nivers MG/ML ORAL 08-19 , per mom ity of SOLN 09:36: 00:00 [place] 06 :00 [facility] 100 0 2022- No 12 ml BID U nivers MG/ML ORAL 08-19 , per mom ity of SOLN 09:36: 00:00 [place] 06 :00 [facility] 100 0 2022- No 12 ml BID U nivers MG/ML ORAL 08-19 , per mom ity of SOLN 09:36: 00:00 [place] 06 :00 [facility] 100 0 2022- No 12 ml BID U nivers MG/ML ORAL 08-19 , per mom ity of SOLN 09:36: 00:00 [place] 06 :00 [facility] 100 0 2022- No 12 ml BID U nivers MG/ML ORAL 08-19 , per mom ity of SOLN 09:36: 00:00 [place] 06 :00 [facility] DIASTAT 2022- No 10mg as Univer [...] affected ity o f aquaphor 08:59: area(s). [place] (COMPOUND[facility] 36 Medical ) ointment Branch ARIPiprazol [...] affected ity o f aquaphor 08:59: area(s). [place] ([facility] 36 Medical ) ointment Branch ARIPiprazol [...] affected ity o f aquaphor 08:59: area(s). [place] (COMPOUND[facility] 36 Medical ) ointment Branch ARIPiprazol [...] affected ity o f aquaphor 08:59: area(s). [place] [facility] ) ointment Branch ARIPiprazol [...] affected ity o f aquaphor 08:59: area(s). [place] [facility] ) ointment Branch ARIPiprazol [...] affected ity o f aquaphor 08:59: area(s). [place] [facility] ) ointment Branch ARIPiprazol [...] affected ity o f aquaphor 08:59: area(s). [place] [facility] ) ointment Branch ARIPiprazol [...] affected ity o f aquaphor 08:59: area(s). [place] [facility] ) ointment Branch ARIPiprazol [...] affected ity o f aquaphor 08:59: area(s). [place] [facility] ) ointment Branch ARIPiprazol [...] affected ity o f aquaphor 08:59: area(s). [place] [facility] ointment Branch ARIPiprazol 2022-0 Yes by [employer] s e (ABILIFY 08-19 Intramuscu ity of [place]) 08:59: lar route [place] as 300 mg sers 36 once every Me dical month. Branch triamcinolo 2022-0 Yes Apply to Un [place] ne 0.1% in 08-19 affected ity o f aquaphor 08:59: area(s). [place] [facility] ) ointment Branch ARIPiprazol 2022-0 Yes by [employer] s e (ABILIFY 08-19 Intramuscu ity of [place]) 08:59: lar route [place] as 300 mg sers 36 once every Me dical month. Branch triamcinolo 2022-0 Yes Apply to Un [place] 0.1% in 08-19 affected ity o f aquaphor 08:59: area(s). [place] [facility] ) ointment Branch ARIPiprazol 2022-0 Yes by Univer s e (ABILIFY 2 Intramuscu ity of [place]) 08:59: lar route [place] as 300 mg sers 36 once every Me dical month. Branch triamcinolo 2022-0 Yes Apply to [place] 0.1% in 08-19 affected ity o f aquaphor 08:59: area(s). [place] [facility] ) ointment Branch ARIPiprazol 2022-0 Yes by Univer s e (ABILIFY 2 Intramuscu ity of [place]) 08:59: lar route [place] as 300 mg sers 36 once every Me dical month. Branch triamcinolo 2022-0 Yes Apply to [place] 0.1% in 08-19 affected ity o f aquaphor 08:59: area(s). [place] [facility] ) ointment Branch ARIPiprazol 2022-0 Yes by Univer s e (ABILIFY 2 Intramuscu ity of [place]) 08:59: lar route [place] as 300 mg sers 36 once every Me dical month. Branch triamcinolo 2022-0 Yes Apply to Un [place] 0.1% in 08-19 affected ity o f aquaphor 08:59: area(s). [place] (COMPOUNDED 36 Medical ) ointment Branch ARIPiprazol 2022-0 Yes by [facility] (ABILIFY 2 [facility] of [place]) 08:59: lar route [place] 300 mg sers 36 once every Me dical month. Branch triamcinolo 2022-0 Yes Apply to [place] 0.1% in 08-19 affected ity o f aquaphor 08:59: area(s). [place] (COMPOUNDED 36 Medical ) ointment Branch ARIPiprazol 2022-0 Yes by [facility] (ABILIFY 2 [facility] of [place]) 08:59: lar route [place] 300 mg sers 36 once every Me dical month. Branch triamcinolo 3-0 Yes Apply to [place] 0.1% in 2- affected ity o f aquaphor 08:59: area(s). [place] (COMPOUNDED 36 Medical ) ointment Branch ARIPiprazol 2023-0 Yes by [facility] (ABILIFY 2- [facility] of [place]) 08:59: lar route [place] 300 mg sers 36 once every Me dical month. Branch triamcinolo 2023-0 Yes Apply to [place] 0.1% in 2- affected ity o f aquaphor 08:59: area(s). [place] (COMPOUNDED 36 Medical ) ointment Branch ARIPiprazol 3-0 Yes by [facility] (ABILIFY 2 [facility] [place]) 08:59: lar route [place] 300 mg sers 36 once every Me dical month. Branch triamcinolo 3-0 Yes Apply to [place] 0.1% in 2- affected ity o f aquaphor 08:59: area(s). [place] (COMPOUNDED 36 Medical ) ointment Branch ARIPiprazol 3-0 Yes by [facility] (ABILIFY 2 [facility] [place]) 08:59: lar route [place] 300 mg sers 36 once every Me dical month. Branch triamcinolo 3-0 Yes Apply to [place] 0.1% in 08-19 affected ity o f aquaphor 08:59: area(s). [place] (COMPOUNDED 36 Medical ) ointment Branch ARIPiprazol 3-0 Yes by [facility] (ABILIFY 2 [facility] [place]) 08:59: lar route [place] 300 mg sers 36 once every Me dical month. Branch triamcinolo 3-0 Yes Apply to [place] 0.1% in 2- affected ity o f aquaphor 08:59: area(s). [place] (COMPOUNDED 36 Medical ) ointment Branch ARIPiprazol 2023-0 Yes by [facility] (ABILIFY 2- [facility] [place]) 08:59: lar route [place] 300 mg sers 36 once every Me dical month. Branch triamcinolo 2023-0 Yes Apply to [place] 0.1% in 2- affected ity o f aquaphor 08:59: area(s). [place] (COMPOUNDED 36 Medical ) ointment Branch ARIPiprazol 2022-0 Yes by [facility] (ABILIFY 2- [facility] [place]) 08:59: lar route [place] 300 mg sers 36 once every Me dical month. Branch triamcinolo 2022-0 Yes Apply to [place] 0.1% in 08-19 affected ity o f aquaphor 08:59: area(s). [place] (COMPOUNDED 36 Medical ) ointment Branch ARIPiprazol 2022-0 Yes by [facility] (ABILIFY 2 [facility] [place]) 08:59: lar route [place] 300 mg sers 36 once every Me dical month. Branch triamcinolo 2022-0 Yes Apply to [place] 0.1% in 08-19 affected ity o f aquaphor 08:59: area(s). [place] (COMPOUNDED 36 Medical ) ointment Branch ARIPiprazol 2022-0 Yes by [facility] (ABILIFY 2 [facility] [place]) 08:59: lar route [place] 300 mg sers 36 once every Me dical month. Branch triamcinolo 2022-0 Yes Apply to [place] 0.1% in 08-19 affected ity o f aquaphor 08:59: area(s). [place] (COMPOUNDED 36 Medical ) ointment Branch ARIPiprazol 2022-0 Yes by [facility] (ABILIFY 2 [facility] [place]) 08:59: lar route [place] 300 mg sers 36 once every Me dical month. Branch triamcinolo 2022-0 Yes Apply to [place] 0.1% in 08-19 affected ity o f aquaphor 08:59: area(s). [place] (COMPOUNDED 36 Medical ) ointment Branch ARIPiprazol 2022-0 Yes by [facility] (ABILIFY 2- [facility] of [place]) 08:59: lar route [place] 300 mg sers 36 once every Me dical month. Branch triamcinolo 2022-0 Yes Apply to [place] 0.1% in 08-19 affected ity o f aquaphor 08:59: area(s). [place] (COMPOUNDED 36 Medical ) ointment Branch ARIPiprazol 2022-0 Yes by [facility] (ABILIFY 2 [facility] [place]) 08:59: lar route [place] 300 mg sers 36 once every Me dical month. Branch triamcinolo 2022-0 Yes Apply to [place] 0.1% in 08-19 affected ity o f aquaphor 08:59: area(s). [place] (COMPOUNDED 36 Medical ) ointment Branch ARIPiprazol 2022-0 Yes by [facility] (ABILIFY 2 [facility] [place]) 08:59: lar route [place] 300 mg sers 36 once every Me dical month. Branch triamcinolo 2022-0 Yes Apply to [place] 0.1% in 08-19 affected ity o f aquaphor 08:59: area(s). [place] (COMPOUNDED 36 Medical ) ointment Branch ARIPiprazol 2022-0 Yes by [facility] (ABILIFY 2 [facility] [place]) 08:59: lar route [place] 300 mg sers 36 once every Me dical month. Branch triamcinolo 2022-0 Yes Apply to [place] 0.1% in 08-19 affected ity o f aquaphor 08:59: area(s). [place] (COMPOUNDED 36 Medical ) ointment Branch ARIPiprazol 2022-0 Yes by [facility] (ABILIFY 2 [facility] [place]) 08:59: lar route [place] 300 mg sers 36 once every Me dical month. Branch triamcinolo 2022-0 Yes Apply to [place] 0.1% in 08-19 affected ity o f aquaphor 08:59: area(s). [place] (COMPOUNDED 36 Medical ) ointment Branch ARIPiprazol 2022-0 Yes by [facility] (ABILIFY 2- [facility] [place]) 08:59: lar route [place] 300 mg sers 36 once every Me dical month. Branch triamcinolo 2022-0 Yes Apply to [place] 0.1% in 08-19 affected ity o f aquaphor 08:59: area(s). [place] (COMPOUNDED 36 Medical ) ointment Branch ARIPiprazol 2022-0 Yes by [facility] (ABILIFY 2 [facility] [place]) 08:59: lar route [place] 300 mg sers 36 once every Me dical month. Branch triamcinolo 2022-0 Yes Apply to [place] 0.1% in 08-19 affected ity o f aquaphor 08:59: area(s). [place] (COMPOUNDED 36 Medical ) ointment Branch ARIPiprazol 2022-0 Yes by [facility] (ABILIFY 2 [facility] [place]) 08:59: lar route [place] 300 mg sers 36 once every Me dical month. Branch triamcinolo 2022-0 Yes Apply to [place] 0.1% in 08-19 affected ity o f aquaphor 08:59: area(s). [place] (COMPOUNDED 36 Medical ) ointment Branch ARIPiprazol 2022-0 Yes by [facility] (ABILIFY 2 [facility] [place]) 08:59: lar route [place] 300 mg sers 36 once every Me dical month. Branch triamcinolo 2022-0 Yes Apply to [place] 0.1% in 08-19 affected ity o f aquaphor 08:59: area(s). [place] (COMPOUNDED 36 Medical ) ointment Branch ARIPiprazol 2022-0 Yes by [facility] (ABILIFY 2 [facility] [place]) 08:59: lar route [place] 300 mg sers 36 once every Me dical month. Branch triamcinolo 2022-0 Yes Apply to [place] 0.1% in 2- affected ity o f aquaphor 08:59: area(s). [place] (COMPOUNDED 36 Medical ) ointment Branch ARIPiprazol 2022-0 Yes by [facility] (ABILIFY 2-01 [facility] [place]) 08:59: lar route [place] 300 mg sers 36 once every Me dical month. Branch triamcinolo Yes Apply to [place] 0.1% in 08-19 affected ity o f aquaphor 08:59: area(s). [place] (COMPOUNDED 36 Medical ) ointment Branch ARIPiprazol Yes by [facility] (ABILIFY 2- [facility] [place]) 08:59: lar route [place] 300 mg sers 36 once every Me dical month. Branch ARIPiprazol Yes by [facility] (ABILIFY 2-01 [facility] [place]) 08:59: lar route [place] 300 mg sers 36 once every Me dical month. Branch ARIPiprazol Yes by [facility] (ABILIFY 2- [facility] [place]) 08:59: lar route [place] 300 mg sers 36 once every Me dical month. Branch ARIPiprazol Yes by [facility] (ABILIFY 2-01 [facility] [place]) 08:59: lar route [place] 300 mg sers 36 once every Me dical month. Branch ARIPiprazol 2022- Yes by Univer s [...] [facility] [place]) 08:59: lar route [place] as 300 mg sers 36 once every [...] once every Me dical month. Branch ARIPiprazol Yes by [facility] e (ABILIFY 2-[address] [facility]) 08:59: lar route [place] as 300 mg sers 36 once every Me dical month. Branch SUMAtriptan 0 Yes [id number] 20mg Use 1 [facility] 20 2-01 [place] in 1 ity of mg/actuatio 00:00: nostril as [place] n nasal 00 needed Medical spray (migraine) Branch . midazolam 0 Yes [id number] 5mg Use 5 mg [facility] (NAYZILAM) 2-01 in each ity of 5 mg/spray 00:00: nostril as [place] (0.1 mL) 00 needed Medical [place] (seizure). Branch levETIRAcet 0 Yes [id number] 1000mg Take 10 mL [facility] am (KEPPRA) 2-01 by mouth ity of 100 mg/mL 00:00: in the [place] oral 00 morning Medical solution and 10 mL Branch in the evening. SUMAtriptan 0 Yes [id number] 20mg Use 1 [facility] 20 2-01 [place] in 1 ity of mg/actuatio 00:00: nostril as [place] n nasal 00 needed Medical spray (migraine) Branch . midazolam 2022-0 Yes [id number] 5mg Use 5 mg [facility] (NAYZILAM) 2-01 in each ity of 5 mg/spray 00:00: nostril as [place] (0.1 mL) 00 needed Medical [place] (seizure). Branch levETIRAcet Yes [id number] 1000mg Take 10 mL [facility] am (KEPPRA) 2-01 by mouth ity of 100 mg/mL 00:00: in the [place] oral 00 morning Medical solution and 10 mL Branch in the evening. SUMAtriptan 2022-0 Yes [id number] 20mg Use 1 [facility] 20 2-01 [place] in 1 ity of mg/actuatio 00:00: nostril as [place] n nasal 00 needed Medical spray (migraine) Branch . midazolam 2022-0 Yes [id number] 5mg Use 5 mg [facility] (NAYZILAM) 2-01 in each ity of 5 mg/spray 00:00: nostril as [place] (0.1 mL) 00 needed Medical [place] (seizure). Branch levETIRAcet 2022-0 Yes [id number] 1000mg Take 10 mL [facility] am (KEPPRA) 2-01 by mouth ity of 100 mg/mL 00:00: in the [place] oral 00 morning Medical solution and 10 mL Branch in the evening. SUMAtriptan 2022-0 Yes [id number] 20mg Use 1 [facility] 20 2-01 [place] in 1 ity of mg/actuatio 00:00: nostril as [place] n nasal 00 needed Medical spray (migraine) Branch . midazolam 2022-0 Yes [id number] 5mg Use 5 mg [facility] (NAYZILAM) 2-01 in each ity of 5 mg/spray 00:00: nostril as [place] (0.1 mL) 00 needed Medical [place] (seizure). Branch levETIRAcet 2022-0 Yes [id number] 1000mg Take 10 mL [facility] am (KEPPRA) 2-01 by mouth ity of 100 mg/mL 00:00: in the [place] oral 00 morning Medical solution and 10 mL Branch in the evening. SUMAtriptan 2022-0 Yes [id number] 20mg Use 1 [facility] 20 2-01 [place] in 1 ity of mg/actuatio 00:00: nostril as [place] n nasal 00 needed Medical spray (migraine) Branch . midazolam 2022-0 Yes [id number] 5mg Use 5 mg [facility] (NAYZILAM) 2-01 in each ity of 5 mg/spray 00:00: nostril as [place] (0.1 mL) 00 needed Medical [place] (seizure). Branch levETIRAcet 2022-0 Yes [id number] 1000mg Take 10 mL [facility] am (KEPPRA) 2-01 by mouth ity of 100 mg/mL 00:00: in the [place] oral 00 morning Medical solution and 10 mL Branch in the evening. SUMAtriptan 2022-0 Yes [id number] 20mg Use 1 [facility] 20 2-01 [place] in 1 ity of mg/actuatio 00:00: nostril as [place] n nasal 00 needed Medical spray (migraine) Branch . midazolam 2022-0 Yes [id number] 5mg Use 5 mg [facility] (NAYZILAM) 2-01 in each ity of 5 mg/spray 00:00: nostril as [place] (0.1 mL) 00 needed Medical [place] (seizure). Branch levETIRAcet 2022-0 Yes [id number] 1000mg Take 10 mL [facility] am (KEPPRA) 2-01 by mouth ity of 100 mg/mL 00:00: in the [place] oral 00 morning Medical solution and 10 mL Branch in the evening. SUMAtriptan 2022-0 Yes [id number] 20mg Use 1 [facility] 20 2-01 [place] in 1 ity of mg/actuatio 00:00: nostril as [place] n nasal 00 needed Medical spray (migraine) Branch . midazolam 2022-0 Yes [id number] 5mg Use 5 mg [facility] (NAYZILAM) 2-01 in each ity of 5 mg/spray 00:00: nostril as [place] (0.1 mL) 00 needed Medical [place] (seizure). Branch levETIRAcet 2022-0 Yes [id number] 1000mg Take 10 mL [facility] am (KEPPRA) 2-01 by mouth ity of 100 mg/mL 00:00: in the [place] oral 00 morning Medical solution and 10 mL Branch in the evening. SUMAtriptan 2022-0 Yes [id number] 20mg Use 1 [facility] 20 2-01 [place] in 1 ity of mg/actuatio 00:00: nostril as [place] n nasal 00 needed Medical spray (migraine) Branch . midazolam 2022-0 Yes [id number] 5mg Use 5 mg [facility] (NAYZILAM) 2-01 in each ity of 5 mg/spray 00:00: nostril as [place] (0.1 mL) 00 needed Medical [place] (seizure). Branch levETIRAcet 2022-0 Yes [id number] 1000mg Take 10 mL [facility] am (KEPPRA) 2-01 by mouth ity of 100 mg/mL 00:00: in the [place] oral 00 morning Medical solution and 10 mL Branch in the evening. SUMAtriptan 2022-0 Yes [id number] 20mg Use 1 [facility] 20 2-01 [place] in 1 ity of mg/actuatio 00:00: nostril as [place] n nasal 00 needed Medical spray (migraine) Branch . midazolam 2022-0 Yes [id number] 5mg Use 5 mg [facility] (NAYZILAM) 2-01 in each ity of 5 mg/spray 00:00: nostril as [place] (0.1 mL) 00 needed Medical [place] (seizure). Branch levETIRAcet 2022-0 Yes [id number] 1000mg Take 10 mL [facility] am (KEPPRA) 2-01 by mouth ity of 100 mg/mL 00:00: in the [place] oral 00 morning Medical solution and 10 mL Branch in the evening. SUMAtriptan 2022-0 Yes [id number] 20mg Use 1 [facility] 20 2-01 [place] in 1 ity of mg/actuatio 00:00: nostril as [place] n nasal 00 needed Medical spray (migraine) Branch . midazolam 2022-0 Yes [id number] 5mg Use 5 mg [facility] (NAYZILAM) 2-01 in each ity of 5 mg/spray 00:00: nostril as [place] (0.1 mL) 00 needed Medical [place] (seizure). Branch levETIRAcet 2022-0 Yes [id number] 1000mg Take 10 mL [facility] am (KEPPRA) 2-01 by mouth ity of 100 mg/mL 00:00: in the [place] oral 00 morning Medical solution and 10 mL Branch in the evening. SUMAtriptan 2022-0 Yes [id number] 20mg Use 1 [facility] 20 2-01 [place] in 1 ity of mg/actuatio 00:00: nostril as [place] n nasal 00 needed Medical spray (migraine) Branch . midazolam 2022-0 Yes [id number] 5mg Use 5 mg [facility] (NAYZILAM) 2-01 in each ity of 5 mg/spray 00:00: nostril as [place] (0.1 mL) 00 needed Medical [place] (seizure). Branch levETIRAcet 2022-0 Yes [id number] 1000mg Take 10 mL [facility] am (KEPPRA) 2-01 by mouth ity of 100 mg/mL 00:00: in the [place] oral 00 morning Medical solution and 10 mL Branch in the evening. SUMAtriptan 2022-0 Yes [id number] 20mg Use 1 [facility] 20 2-01 [place] in 1 ity of mg/actuatio 00:00: nostril as [place] n nasal 00 needed Medical spray (migraine) Branch . midazolam 2022-0 Yes [id number] 5mg Use 5 mg [facility] (NAYZILAM) 2-01 in each ity of 5 mg/spray 00:00: nostril as [place] (0.1 mL) 00 needed Medical [place] (seizure). Branch levETIRAcet 2022-0 Yes [id number] 1000mg Take 10 mL [facility] am (KEPPRA) 2-01 by mouth ity of 100 mg/mL 00:00: in the [place] oral 00 morning Medical solution and 10 mL Branch in the evening. SUMAtriptan 2022-0 Yes [id number] 20mg Use 1 [facility] 20 2-01 [place] in 1 ity of mg/actuatio 00:00: nostril as [place] n nasal 00 needed Medical spray (migraine) Branch . midazolam 2022-0 Yes [id number] 5mg Use 5 mg [facility] (NAYZILAM) 2-01 in each ity of 5 mg/spray 00:00: nostril as [place] (0.1 mL) 00 needed Medical [place] (seizure). Branch levETIRAcet 2022-0 Yes [id number] 1000mg Take 10 mL [facility] am (KEPPRA) 2-01 by mouth ity of 100 mg/mL 00:00: in the [place] oral 00 morning Medical solution and 10 mL Branch in the evening. SUMAtriptan 2022-0 Yes [id number] 20mg Use 1 [facility] 20 2-01 [place] in 1 ity of mg/actuatio 00:00: nostril as [place] n nasal 00 needed Medical spray (migraine) Branch . midazolam 2022-0 Yes [id number] 5mg Use 5 mg [facility] (NAYZILAM) 2-01 in each ity of 5 mg/spray 00:00: nostril as [place] (0.1 mL) 00 needed Medical [place] (seizure). Branch levETIRAcet 2022-0 Yes [id number] 1000mg Take 10 mL [facility] am (KEPPRA) 2-01 by mouth ity of 100 mg/mL 00:00: in the [place] oral 00 morning Medical solution and 10 mL Branch in the evening. SUMAtriptan 2022-0 Yes [id number] 20mg Use 1 [facility] 20 2-01 [place] in 1 ity of mg/actuatio 00:00: nostril as [place] n nasal 00 needed Medical spray (migraine) Branch . midazolam 2022-0 Yes [id number] 5mg Use 5 mg [facility] (NAYZILAM) 2-01 in each ity of 5 mg/spray 00:00: nostril as [place] (0.1 mL) 00 needed Medical [place] (seizure). Branch levETIRAcet 0 Yes [id number] 1000mg Take 10 mL [facility] am (KEPPRA) 2-01 by mouth ity of 100 mg/mL 00:00: in the [place] oral 00 morning Medical solution and 10 mL Branch in the evening. SUMAtriptan 2022-0 Yes [id number] 20mg Use 1 [facility] 20 2-01 [place] in 1 ity of mg/actuatio 00:00: nostril as [place] n nasal 00 needed Medical spray (migraine) Branch . midazolam 2022-0 Yes [id number] 5mg Use 5 mg [facility] (NAYZILAM) 2-01 in each ity of 5 mg/spray 00:00: nostril as [place] (0.1 mL) 00 needed Medical [place] (seizure). Branch levETIRAcet 0 Yes [id number] 1000mg Take 10 mL [facility] am (KEPPRA) 2-01 by mouth ity of 100 mg/mL 00:00: in the [place] oral 00 morning Medical solution and 10 mL Branch in the evening. SUMAtriptan 2022-0 Yes [id number] 20mg Use 1 [facility] 20 2-01 [place] in 1 ity of mg/actuatio 00:00: nostril as [place] n nasal 00 needed Medical spray (migraine) Branch . midazolam 2022-0 Yes [id number] 5mg Use 5 mg [facility] (NAYZILAM) 2-01 in each ity of 5 mg/spray 00:00: nostril as [place] (0.1 mL) 00 needed Medical [place] (seizure). Branch levETIRAcet 2022-0 Yes [id number] 1000mg Take 10 mL [facility] am (KEPPRA) 2-01 by mouth ity of 100 mg/mL 00:00: in the [place] oral 00 morning Medical solution and 10 mL Branch in the evening. SUMAtriptan 2022-0 Yes [id number] 20mg Use 1 [facility] 20 2-01 [place] in 1 ity of mg/actuatio 00:00: nostril as [place] n nasal 00 needed Medical spray (migraine) Branch . midazolam 2022-0 Yes [id number] 5mg Use 5 mg [facility] (NAYZILAM) 2-01 in each ity of 5 mg/spray 00:00: nostril as [place] (0.1 mL) 00 needed Medical [place] (seizure). Branch levETIRAcet 2022-0 Yes [id number] 1000mg Take 10 mL [facility] am (KEPPRA) 2-01 by mouth ity of 100 mg/mL 00:00: in the [place] oral 00 morning Medical solution and 10 mL Branch in the evening. SUMAtriptan 2022-0 Yes [id number] 20mg Use 1 [facility] 20 2-01 [place] in 1 ity of mg/actuatio 00:00: nostril as [place] n nasal 00 needed Medical spray (migraine) Branch . midazolam 2022-0 Yes [id number] 5mg Use 5 mg [facility] (NAYZILAM) 2-01 in each ity of 5 mg/spray 00:00: nostril as [place] (0.1 mL) 00 needed Medical [place] (seizure). Branch levETIRAcet 2022-0 Yes [id number] 1000mg Take 10 mL [facility] am (KEPPRA) 2-01 by mouth ity of 100 mg/mL 00:00: in the [place] oral 00 morning Medical solution and 10 mL Branch in the evening. SUMAtriptan 2022-0 Yes [id number] 20mg Use 1 [facility] 20 2-01 [place] in 1 ity of mg/actuatio 00:00: nostril as [place] n nasal 00 needed Medical spray (migraine) Branch . midazolam 2022-0 Yes [id number] 5mg Use 5 mg [facility] (NAYZILAM) 2-01 in each ity of 5 mg/spray 00:00: nostril as [place] (0.1 mL) 00 needed Medical [place] (seizure). Branch levETIRAcet 2022-0 Yes [id number] 1000mg Take 10 mL [facility] am (KEPPRA) 2-01 by mouth ity of 100 mg/mL 00:00: in the [place] oral 00 morning Medical solution and 10 mL Branch in the evening. SUMAtriptan 2022-0 Yes [id number] 20mg Use 1 [facility] 20 2-01 [place] in 1 ity of mg/actuatio 00:00: nostril as [place] n nasal 00 needed Medical spray (migraine) Branch . midazolam 2022-0 Yes [id number] 5mg Use 5 mg [facility] (NAYZILAM) 2-01 in each ity of 5 mg/spray 00:00: nostril as [place] (0.1 mL) 00 needed Medical [place] (seizure). Branch levETIRAcet 2022-0 Yes [id number] 1000mg Take 10 mL [facility] am (KEPPRA) 2-01 by mouth ity of 100 mg/mL 00:00: in the [place] oral 00 morning Medical solution and 10 mL Branch in the evening. SUMAtriptan 2022-0 Yes [id number] 20mg Use 1 [facility] 20 2-01 [place] in 1 ity of mg/actuatio 00:00: nostril as [place] n nasal 00 needed Medical spray (migraine) Branch . midazolam 2022-0 Yes [id number] 5mg Use 5 mg [facility] (NAYZILAM) 2-01 in each ity of 5 mg/spray 00:00: nostril as [place] (0.1 mL) 00 needed Medical [place] (seizure). Branch levETIRAcet 2022-0 Yes [id number] 1000mg Take 10 mL [facility] am (KEPPRA) 2-01 by mouth ity of 100 mg/mL 00:00: in the [place] oral 00 morning Medical solution and 10 mL Branch in the evening. SUMAtriptan 2022-0 Yes [id number] 20mg Use 1 [facility] 20 2-01 [place] in 1 ity of mg/actuatio 00:00: nostril as [place] n nasal 00 needed Medical spray (migraine) Branch . midazolam 2022-0 Yes [id number] 5mg Use 5 mg [facility] (NAYZILAM) 2-01 in each ity of 5 mg/spray 00:00: nostril as [place] (0.1 mL) 00 needed Medical [place] (seizure). Branch levETIRAcet 2022-0 Yes [id number] 1000mg Take 10 mL [facility] am (KEPPRA) 2-01 by mouth ity of 100 mg/mL 00:00: in the [place] oral 00 morning Medical solution and 10 mL Branch in the evening. SUMAtriptan 2022-0 Yes [id number] 20mg Use 1 [facility] 20 2-01 [place] in 1 ity of mg/actuatio 00:00: nostril as [place] n nasal 00 needed Medical spray (migraine) Branch . midazolam 2022-0 Yes [id number] 5mg Use 5 mg [facility] (NAYZILAM) 2-01 in each ity of 5 mg/spray 00:00: nostril as [place] (0.1 mL) 00 needed Medical [place] (seizure). Branch levETIRAcet 0 Yes [id number] 1000mg Take 10 mL [facility] am (KEPPRA) 2-01 by mouth ity of 100 mg/mL 00:00: in the [place] oral 00 morning Medical solution and 10 mL Branch in the evening. SUMAtriptan 0 Yes [id number] 20mg Use 1 [facility] 20 2-01 [place] in 1 ity of mg/actuatio 00:00: nostril as [place] n nasal 00 needed Medical spray (migraine) Branch . midazolam 2022-0 Yes [id number] 5mg Use 5 mg [facility] (NAYZILAM) 2-01 in each ity of 5 mg/spray 00:00: nostril as [place] (0.1 mL) 00 needed Medical [place] (seizure). Branch levETIRAcet 0 Yes [id number] 1000mg Take 10 mL [facility] am (KEPPRA) 2-01 by mouth ity of 100 mg/mL 00:00: in the [place] oral 00 morning Medical solution and 10 mL Branch in the evening. SUMAtriptan 2022-0 Yes [id number] 20mg Use 1 [facility] 20 2-01 [place] in 1 ity of mg/actuatio 00:00: nostril as [place] n nasal 00 needed Medical spray (migraine) Branch . midazolam 2022-0 Yes [id number] 5mg Use 5 mg [facility] (NAYZILAM) 2-01 in each ity of 5 mg/spray 00:00: nostril as [place] (0.1 mL) 00 needed Medical [place] (seizure). Branch levETIRAcet 0 Yes [id number] 1000mg Take 10 mL [facility] am (KEPPRA) 2-01 by mouth ity of 100 mg/mL 00:00: in the [place] oral 00 morning Medical solution and 10 mL Branch in the evening. SUMAtriptan 2022-0 Yes [id number] 20mg Use 1 [facility] 20 2-01 [place] in 1 ity of mg/actuatio 00:00: nostril as [place] n nasal 00 needed Medical spray (migraine) Branch . midazolam 2022-0 Yes [id number] 5mg Use 5 mg [facility] (NAYZILAM) 2-01 in each ity of 5 mg/spray 00:00: nostril as [place] (0.1 mL) 00 needed Medical [place] (seizure). Branch levETIRAcet 2022-0 Yes [id number] 1000mg Take 10 mL [facility] am (KEPPRA) 2-01 by mouth ity of 100 mg/mL 00:00: in the [place] oral 00 morning Medical solution and 10 mL Branch in the evening. SUMAtriptan 2022-0 Yes [id number] 20mg Use 1 [facility] 20 2-01 [place] in 1 ity of mg/actuatio 00:00: nostril as [place] n nasal 00 needed Medical spray (migraine) Branch . midazolam 2022-0 Yes [id number] 5mg Use 5 mg [facility] (NAYZILAM) 2-01 in each ity of 5 mg/spray 00:00: nostril as [place] (0.1 mL) 00 needed Medical [place] (seizure). Branch levETIRAcet 2022-0 Yes [id number] 1000mg Take 10 mL [facility] am (KEPPRA) 2-01 by mouth ity of 100 mg/mL 00:00: in the [place] oral 00 morning Medical solution and 10 mL Branch in the evening. SUMAtriptan 2022-0 Yes [id number] 20mg Use 1 [facility] 20 2-01 [place] in 1 ity of mg/actuatio 00:00: nostril as [place] n nasal 00 needed Medical spray (migraine) Branch . midazolam 2022-0 Yes [id number] 5mg Use 5 mg [facility] (NAYZILAM) 2-01 in each ity of 5 mg/spray 00:00: nostril as [place] (0.1 mL) 00 needed Medical [place] (seizure). Branch levETIRAcet 2022-0 Yes [id number] 1000mg Take 10 mL [facility] am (KEPPRA) 2-01 by mouth ity of 100 mg/mL 00:00: in the [place] oral 00 morning Medical solution and 10 mL Branch in the evening. SUMAtriptan 2022-0 Yes [id number] 20mg Use 1 [facility] 20 2-01 [place] in 1 ity of mg/actuatio 00:00: nostril as [place] n nasal 00 needed Medical spray (migraine) Branch . midazolam 2022-0 Yes [id number] 5mg Use 5 mg [facility] (NAYZILAM) 2-01 in each ity of 5 mg/spray 00:00: nostril as [place] (0.1 mL) 00 needed Medical [place] (seizure). Branch levETIRAcet 2022-0 Yes [id number] 1000mg Take 10 mL [facility] am (KEPPRA) 2-01 by mouth ity of 100 mg/mL 00:00: in the [place] oral 00 morning Medical solution and 10 mL Branch in the evening. SUMAtriptan 2022-0 Yes [id number] 20mg Use 1 [facility] 20 2-01 [place] in 1 ity of mg/actuatio 00:00: nostril as [place] n nasal 00 needed Medical spray (migraine) Branch . midazolam 2022-0 Yes [id number] 5mg Use 5 mg [facility] (NAYZILAM) 2-01 in each ity of 5 mg/spray 00:00: nostril as [place] (0.1 mL) 00 needed [facility] [place] (seizure). Branch levETIRAcet 0 Yes [id number] 1000mg Take 10 mL [facility] am (KEPPRA) 2-01 by mouth ity of 100 mg/mL 00:00: in the [place] oral 00 morning Medical solution and 10 mL Branch in the evening. SUMAtriptan 2022-0 Yes [id number] 20mg Use 1 [facility] 20 2-01 [place] in 1 ity of mg/actuatio 00:00: nostril as [place] n nasal 00 needed Medical spray (migraine) Branch . midazolam 2022-0 Yes [id number] 5mg Use 5 mg [facility] ([facility]) 2-01 in each ity of 5 mg/spray 00:00: nostril as [place] (0.1 mL) 00 needed [facility] [place] (seizure). Branch levETIRAcet 2022-0 Yes [id number] 1000mg Take 10 mL [facility] ([facility]PPRA) 2-01 by mouth ity of 100 mg/mL 00:00: in the [place] oral 00 morning Medical solution and 10 mL Branch in the evening. SUMAtriptan 2022-0 Yes [id number] 20mg Use 1 [facility] 20 2-01 [place] in 1 ity of mg/actuatio 00:00: nostril as [place] n nasal 00 needed Medical spray (migraine) Branch . midazolam 2022-0 Yes [id number] 5mg Use 5 mg [facility] ([facility]) 2-01 in each ity of 5 mg/spray 00:00: nostril as [place] (0.1 mL) 00 needed [facility] [place] (seizure). Branch levETIRAcet 0 Yes [id number] 1000mg Take 10 mL [facility] (KEPPRA) 2-01 by mouth ity of 100 mg/mL 00:00: in the [place] oral 00 morning Medical solution and 10 mL Branch in the evening. SUMAtriptan 2022-0 Yes [id number] 20mg Use 1 [facility] 20 2-01 [place] in 1 ity of mg/actuatio 00:00: nostril as [place] n nasal 00 needed Medical spray (migraine) Branch . midazolam 2022-0 Yes [id number] 5mg Use 5 mg [facility] ([facility]) 2-01 in each ity of 5 mg/spray 00:00: nostril as [place] (0.1 mL) 00 needed [facility] [place] (seizure). Branch levETIRAcet 2022-0 Yes [id number] 1000mg Take 10 mL [facility] (KEPPRA) 2-01 by mouth ity of 100 mg/mL 00:00: in the [place] oral 00 morning Medical solution and 10 mL Branch in the evening. SUMAtriptan 2022-0 Yes [id number] 20mg Use 1 [facility] 20 2-01 [place] in 1 ity of mg/actuatio 00:00: nostril as [place] n nasal 00 needed Medical spray (migraine) Branch . midazolam 2022-0 Yes [id number] 5mg Use 5 mg [facility] ([facility]) 2-01 in each ity of 5 mg/spray 00:00: nostril as [place] (0.1 mL) 00 needed [facility] [place] (seizure). Branch levETIRAcet 2022-0 Yes [id number] 1000mg Take 10 mL [facility] (KEPPR[facility]) 2-01 by mouth ity of 100 mg/mL 00:00: in the [place] oral 00 morning Medical solution and 10 mL Branch in the evening. SUMAtriptan 2022-0 Yes [id number] 20mg Use 1 [facility] 20 2-01 [place] in 1 ity of mg/actuatio 00:00: nostril as [place] n nasal 00 needed Medical spray (migraine) Branch . midazolam 2022-0 Yes [id number] 5mg Use 5 mg [facility] ([facility]) 2-01 in each ity of 5 mg/spray 00:00: nostril as [place] (0.1 mL) 00 needed [facility] [place] (seizure). Branch levETIRAcet 2022-0 Yes [id number] 1000mg Take 10 mL [facility] ([facility]PPR[facility]) 2-01 by mouth ity of 100 mg/mL 00:00: in the [place] oral 00 morning Medical solution and 10 mL Branch in the evening. SUMAtriptan 2022-0 Yes [id number] 20mg Use 1 [facility] 20 2-01 [place] in 1 ity of mg/actuatio 00:00: nostril as [place] n nasal 00 needed Medical spray (migraine) Branch . midazolam 2022-0 Yes [id number] 5mg Use 5 mg [facility] ([facility]) 2-01 in each ity of 5 mg/spray 00:00: nostril as [place] (0.1 mL) 00 needed [facility] [place] (seizure). Branch levETIRAcet 2022-0 Yes [id number] 1000mg Take 10 mL [facility] ([facility]PPRA) 2-01 by mouth ity of 100 mg/mL 00:00: in the [place] oral 00 morning Medical solution and 10 mL Branch in the evening. SUMAtriptan 2022-0 Yes [id number] 20mg Use 1 [facility] 20 2-01 [place] in 1 ity of mg/actuatio 00:00: nostril as [place] n nasal 00 needed Medical spray (migraine) Branch . midazolam 2022-0 Yes [id number] 5mg Use 5 mg [facility] ([facility]) 2-01 in each ity of 5 mg/spray 00:00: nostril as [place] (0.1 mL) 00 needed [facility] [place] (seizure). Branch levETIRAcet 2022-0 Yes [id number] 1000mg Take 10 mL [facility] (KEPPRA) 2-01 by mouth ity of 100 mg/mL 00:00: in the [place] oral 00 morning Medical solution and 10 mL Branch in the evening. SUMAtriptan 2022-0 Yes [id number] 20mg Use 1 [facility] 20 2-01 [place] in 1 ity of mg/actuatio 00:00: nostril as [place] n nasal 00 needed Medical spray (migraine) Branch . midazolam 2022-0 Yes [id number] 5mg Use 5 mg [facility] ([facility]) 2-01 in each ity of 5 mg/spray 00:00: nostril as [place] (0.1 mL) 00 needed [facility] [place] (seizure). Branch levETIRAcet 0 Yes [id number] 1000mg Take 10 mL [facility] (KEPPRA) 2-01 by mouth ity of 100 mg/mL 00:00: in the [place] oral 00 morning Medical solution and 10 mL Branch in the evening. SUMAtriptan 2022-0 Yes [id number] 20mg Use 1 [facility] 20 2-01 [place] in 1 ity of mg/actuatio 00:00: nostril as [place] n nasal 00 needed Medical spray (migraine) Branch . midazolam 2022-0 Yes [id number] 5mg Use 5 mg [facility] ([facility]IL[facility]) 2-01 in each ity of 5 mg/spray 00:00: nostril as [place] (0.1 mL) 00 needed [facility] [place] (seizure). Branch levETIRAcet 2022-0 Yes [id number] 1000mg Take 10 mL [facility] (KEPPRA) 2-01 by mouth ity of 100 mg/mL 00:00: in the [place] oral 00 morning Medical solution and 10 mL Branch in the evening. SUMAtriptan 2022-0 Yes [id number] 20mg Use 1 [facility] 20 2-01 [place] in 1 ity of mg/actuatio 00:00: nostril as [place] n nasal 00 needed Medical spray (migraine) Branch . midazolam 2022-0 Yes [id number] 5mg Use 5 mg [facility] ([facility]) 2-01 in each ity of 5 mg/spray 00:00: nostril as [place] (0.1 mL) 00 needed [facility] [place] (seizure). Branch levETIRAcet 2022-0 Yes [id number] 1000mg Take 10 mL [facility] (KEPPRA) 2-01 by mouth ity of 100 mg/mL 00:00: in the [place] oral 00 morning Medical solution and 10 mL Branch in the evening. SUMAtriptan 2022-0 Yes [id number] 20mg Use 1 [facility] 20 2-01 [place] in 1 ity of mg/actuatio 00:00: nostril as [place] n nasal 00 needed Medical spray (migraine) Branch . midazolam 2022-0 Yes [id number] 5mg Use 5 mg [facility] ([facility]IL[facility]) 2-01 in each ity of 5 mg/spray 00:00: nostril as [place] (0.1 mL) 00 needed [facility] [place] (seizure). Branch levETIRAcet 2022-0 Yes [id number] 1000mg Take 10 mL [facility] (KEPPR[facility]) 2-01 by mouth ity of 100 mg/mL 00:00: in the [place] oral 00 morning Medical solution and 10 mL Branch in the evening. SUMAtriptan 2022-0 Yes [id number] 20mg Use 1 [facility] 20 2-01 [place] in 1 ity of mg/actuatio 00:00: nostril as [place] n nasal 00 needed Medical spray (migraine) Branch . midazolam 2022-0 Yes [id number] 5mg Use 5 mg [facility] ([facility]) 2-01 in each ity of 5 mg/spray 00:00: nostril as [place] (0.1 mL) 00 needed [facility] [place] (seizure). Branch levETIRAcet 2022-0 Yes [id number] 1000mg Take 10 mL [facility] (KEPPRA) 2-01 by mouth ity of 100 mg/mL 00:00: in the [place] oral 00 morning Medical solution and 10 mL Branch in the evening. SUMAtriptan 2022-0 Yes [id number] 20mg Use 1 [facility] 20 2-01 [place] in 1 ity of mg/actuatio 00:00: nostril as [place] n nasal 00 needed Medical spray (migraine) Branch . midazolam 2022-0 Yes [id number] 5mg Use 5 mg [facility] ([facility]) 2-01 in each ity of 5 mg/spray 00:00: nostril as [place] (0.1 mL) 00 needed [facility] [place] (seizure). Branch levETIRAcet 2022-0 Yes [id number] 1000mg Take 10 mL [facility] ([facility]PPR[facility]) 2-01 by mouth ity of 100 mg/mL 00:00: in the [place] oral 00 morning Medical solution and 10 mL Branch in the evening. SUMAtriptan 2022-0 Yes [id number] 20mg Use 1 [facility] 20 2-01 [place] in 1 ity of mg/actuatio 00:00: nostril as [place] n nasal 00 needed Medical spray (migraine) Branch . midazolam 2022-0 Yes [id number] 5mg Use 5 mg [facility] ([facility]) 2-01 in each ity of 5 mg/spray 00:00: nostril as [place] (0.1 mL) 00 needed [facility] [place] (seizure). Branch levETIRAcet 2022-0 Yes [id number] 1000mg Take 10 mL [facility] (KEPPR[facility]) 2-01 by mouth ity of 100 mg/mL 00:00: in the [place] oral 00 morning Medical solution and 10 mL Branch in the evening. SUMAtriptan 2022-0 Yes [id number] 20mg Use 1 [facility] 20 2-01 [place] in 1 ity of mg/actuatio 00:00: nostril as [place] n nasal 00 needed Medical spray (migraine) Branch . midazolam 2022-0 Yes [id number] 5mg Use 5 mg [facility] ([facility]) 2-01 in each ity of 5 mg/spray 00:00: nostril as [place] (0.1 mL) 00 needed [facility] [place] (seizure). Branch levETIRAcet 2022-0 Yes [id number] 1000mg Take 10 mL [facility] ([facility]) 2-01 by mouth ity of 100 mg/mL 00:00: in the [place] oral 00 morning Medical solution and 10 mL Branch in the evening. SUMAtriptan 2022-0 Yes [id number] 20mg Use 1 [facility] 20 2-01 [place] in 1 ity of mg/actuatio 00:00: nostril as [place] n nasal 00 needed Medical spray (migraine) Branch . midazolam 2022-0 Yes [id number] 5mg Use 5 mg [facility] ([facility]IL[facility]) 2-01 in each ity of 5 mg/spray 00:00: nostril as [place] (0.1 mL) 00 needed [facility] [place] (seizure). Branch levETIRAcet 2022-0 Yes [id number] 1000mg Take 10 mL [facility] (KEPPRA) 2-01 by mouth ity of 100 mg/mL 00:00: in the [place] oral 00 morning Medical solution and 10 mL Branch in the evening. SUMAtriptan 2022-0 Yes [id number] 20mg Use 1 [facility] 20 2-01 [place] in 1 ity of mg/actuatio 00:00: nostril as [place] n nasal 00 needed Medical spray (migraine) Branch . midazolam 2022-0 Yes [id number] 5mg Use 5 mg [facility] ([facility]IL[facility]) 2-01 in each ity of 5 mg/spray 00:00: nostril as [place] (0.1 mL) 00 needed [facility] [place] (seizure). Branch levETIRAcet 2022-0 Yes [id number] 1000mg Take 10 mL [facility] (KEPPRA) 2-01 by mouth ity of 100 mg/mL 00:00: in the [place] oral 00 morning Medical solution and 10 mL Branch in the evening. SUMAtriptan 2022-0 Yes [id number] 20mg Use 1 [facility] 20 2-01 [place] in 1 ity of mg/actuatio 00:00: nostril as [place] n nasal 00 needed Medical spray (migraine) Branch . midazolam 2022-0 Yes [id number] 5mg Use 5 mg [facility] ([facility]IL[facility]) 2-01 in each ity of 5 mg/spray 00:00: nostril as [place] (0.1 mL) 00 needed [facility] [place] (seizure). Branch levETIRAcet 2022-0 Yes [id number] 1000mg Take 10 mL [facility] (KEPPRA) 2-01 by mouth ity of 100 mg/mL 00:00: in the [place] oral 00 morning Medical solution and 10 mL Branch in the evening. SUMAtriptan 2022-0 Yes [id number] 20mg Use 1 [facility] 20 2-01 [place] in 1 ity of mg/actuatio 00:00: nostril as [place] n nasal 00 needed Medical spray (migraine) Branch . midazolam 2022-0 Yes [id number] 5mg Use 5 mg [facility] ([facility]IL[facility]) 2-01 in each ity of 5 mg/spray 00:00: nostril as [place] (0.1 mL) 00 needed [facility] [place] (seizure). Branch levETIRAcet 2022-0 Yes [id number] 1000mg Take 10 mL [facility] (KEPPRA) 2-01 by mouth ity of 100 mg/mL 00:00: in the [place] oral 00 morning Medical solution and 10 mL Branch in the evening. SUMAtriptan 2022-0 Yes [id number] 20mg Use 1 [facility] 20 2-01 [place] in 1 ity of mg/actuatio 00:00: nostril as [place] n nasal 00 needed Medical spray (migraine) Branch . midazolam 2022-0 Yes [id number] 5mg Use 5 mg [facility] ([facility]IL[facility]) 2-01 in each ity of 5 mg/spray 00:00: nostril as [place] (0.1 mL) 00 needed [facility] [place] (seizure). Branch levETIRAcet 2022-0 Yes [id number] 1000mg Take 10 mL [facility] (KEPPRA) 2-01 by mouth ity of 100 mg/mL 00:00: in the [place] oral 00 morning Medical solution and 10 mL Branch in the evening. SUMAtriptan 2022-0 Yes [id number] 20mg Use 1 [facility] 20 2-01 [place] in 1 ity of mg/actuatio 00:00: nostril as [place] n nasal 00 needed Medical spray (migraine) Branch . midazolam 2022-0 Yes [id number] 5mg Use 5 mg [facility] ([facility]) 2-01 in each ity of 5 mg/spray 00:00: nostril as [place] (0.1 mL) 00 needed [facility] [place] (seizure). Branch levETIRAcet 2022-0 Yes [id number] 1000mg Take 10 mL [facility] (KEPPRA) 2-01 by mouth ity of 100 mg/mL 00:00: in the [place] oral 00 morning Medical solution and 10 mL Branch in the evening. SUMAtriptan 2022-0 Yes [id number] 20mg Use 1 [facility] 20 2-01 [place] in 1 ity of mg/actuatio 00:00: nostril as [place] n nasal 00 needed Medical spray (migraine) Branch . midazolam 2022-0 Yes [id number] 5mg Use 5 mg [facility] ([facility]IL[facility]) 2-01 in each ity of 5 mg/spray 00:00: nostril as [place] (0.1 mL) 00 needed [facility] [place] (seizure). Branch levETIRAcet 2022-0 Yes [id number] 1000mg Take 10 mL [facility] (KEPPRA) 2-01 by mouth ity of 100 mg/mL 00:00: in the [place] oral 00 morning Medical solution and 10 mL Branch in the evening. SUMAtriptan 2022-0 Yes [id number] 20mg Use 1 [facility] 20 2-01 [place] in 1 ity of mg/actuatio 00:00: nostril as [place] n nasal 00 needed Medical spray (migraine) Branch . midazolam 2022-0 Yes [id number] 5mg Use 5 mg [facility] ([facility]IL[facility]) 2-01 in each ity of 5 mg/spray 00:00: nostril as [place] (0.1 mL) 00 needed [facility] [place] (seizure). Branch levETIRAcet 2022-0 Yes [id number] 1000mg Take 10 mL [facility] (KEPPRA) 2-01 by mouth ity of 100 mg/mL 00:00: in the [place] oral 00 morning Medical solution and 10 mL Branch in the evening. SUMAtriptan 2022-0 Yes [id number] 20mg Use 1 [facility] 20 2-01 [place] in 1 ity of mg/actuatio 00:00: nostril as [place] n nasal 00 needed Medical spray (migraine) Branch . midazolam 2022-0 Yes [id number] 5mg Use 5 mg [facility] ([facility]IL[facility]) 2-01 in each ity of 5 mg/spray 00:00: nostril as [place] (0.1 mL) 00 needed [facility] [place] (seizure). Branch levETIRAcet 2022-0 Yes [id number] 1000mg Take 10 mL [facility] (KEPPRA) 2-01 by mouth ity of 100 mg/mL 00:00: in the [place] oral 00 morning Medical solution and 10 mL Branch in the evening. SUMAtriptan 2022-0 Yes [id number] 20mg Use 1 [facility] 20 2-01 [place] in 1 ity of mg/actuatio 00:00: nostril as [place] n nasal 00 needed Medical spray (migraine) Branch . midazolam 2022-0 Yes [id number] 5mg Use 5 mg [facility] ([facility]IL[facility]) 2-01 in each ity of 5 mg/spray 00:00: nostril as [place] (0.1 mL) 00 needed [facility] [place] (seizure). Branch levETIRAcet 2022-0 Yes [id number] 1000mg Take 10 mL [facility] (KEPPRA) 2-01 by mouth ity of 100 mg/mL 00:00: in the [place] oral 00 morning Medical solution and 10 mL Branch in the evening. SUMAtriptan 2022-0 Yes [id number] 20mg Use 1 [facility] 20 2-01 [place] in 1 ity of mg/actuatio 00:00: nostril as [place] n nasal 00 needed Medical spray (migraine) Branch . midazolam 2022-0 Yes [id number] 5mg Use 5 mg [facility] ([facility]IL[facility]) 2-01 in each ity of 5 mg/spray 00:00: nostril as [place] (0.1 mL) 00 needed [facility] [place] (seizure). Branch levETIRAcet 2022-0 Yes [id number] 1000mg Take 10 mL [facility] (KEPPRA) 2-01 by mouth ity of 100 mg/mL 00:00: in the [place] oral 00 morning Medical solution and 10 mL Branch in the evening. SUMAtriptan 2022-0 Yes [id number] 20mg Use 1 [facility] 20 2-01 [place] in 1 ity of mg/actuatio 00:00: nostril as [place] n nasal 00 needed Medical spray (migraine) Branch . midazolam 2022-0 Yes [id number] 5mg Use 5 mg [facility] ([facility]IL[facility]) 2-01 in each ity of 5 mg/spray 00:00: nostril as [place] (0.1 mL) 00 needed [facility] [place] (seizure). Branch levETIRAcet 2022-0 Yes [id number] 1000mg Take 10 mL [facility] (KEPPRA) 2-01 by mouth ity of 100 mg/mL 00:00: in the [place] oral 00 morning Medical solution and 10 mL Branch in the evening. SUMAtriptan 2022-0 Yes [id number] 20mg Use 1 [facility] 20 2-01 [place] in 1 ity of mg/actuatio 00:00: nostril as [place] n nasal 00 needed Medical spray (migraine) Branch . midazolam 2022-0 Yes [id number] 5mg Use 5 mg [facility] ([facility]IL[facility]) 2-01 in each ity of 5 mg/spray 00:00: nostril as [place] (0.1 mL) 00 needed [facility] [place] (seizure). Branch levETIRAcet 2022-0 Yes [id number] 1000mg Take 10 mL [facility] (KEPPRA) 2-01 by mouth ity of 100 mg/mL 00:00: in the [place] oral 00 morning Medical solution and 10 mL Branch in the evening. SUMAtriptan 2022-0 Yes [id number] 20mg Use 1 [facility] 20 2-01 [place] in 1 ity of mg/actuatio 00:00: nostril as [place] n nasal 00 needed Medical spray (migraine) Branch . midazolam 2022-0 Yes [id number] 5mg Use 5 mg [facility] ([facility]IL[facility]) 2-01 in each ity of 5 mg/spray 00:00: nostril as [place] (0.1 mL) 00 needed [facility] [place] (seizure). Branch levETIRAcet 2022-0 Yes [id number] 1000mg Take 10 mL [facility] (KEPPRA) 2-01 by mouth ity of 100 mg/mL 00:00: in the [place] oral 00 morning Medical solution and 10 mL Branch in the evening. SUMAtriptan 2022-0 Yes [id number] 20mg Use 1 [facility] 20 2-01 [place] in 1 ity of mg/actuatio 00:00: nostril as [place] n nasal 00 needed Medical spray (migraine) Branch . midazolam 2022-0 Yes [id number] 5mg Use 5 mg [facility] ([facility]IL[facility]) 2-01 in each ity of 5 mg/spray 00:00: nostril as [place] (0.1 mL) 00 needed [facility] [place] (seizure). Branch levETIRAcet 2022-0 Yes [id number] 1000mg Take 10 mL [facility] (KEPPRA) 2-01 by mouth ity of 100 mg/mL 00:00: in the [place] oral 00 morning Medical solution and 10 mL Branch in the evening. SUMAtriptan 2022-0 Yes [id number] 20mg Use 1 [facility] 20 2-01 [place] in 1 ity of mg/actuatio 00:00: nostril as [place] n nasal 00 needed Medical spray (migraine) Branch . midazolam 2022-0 Yes [id number] 5mg Use 5 mg [facility] ([facility]) 2-01 in each ity of 5 mg/spray 00:00: nostril as [place] (0.1 mL) 00 needed [facility] [place] (seizure). Branch levETIRAcet 2022-0 Yes [id number] 1000mg Take 10 mL [facility] (KEPPRA) 2-01 by mouth ity of 100 mg/mL 00:00: in the [place] oral 00 morning Medical solution and 10 mL Branch in the evening. SUMAtriptan 2022-0 Yes [id number] 20mg Use 1 [facility] 20 2-01 [place] in 1 ity of mg/actuatio 00:00: nostril as [place] n nasal 00 needed Medical spray (migraine) Branch . midazolam 2022-0 Yes [id number] 5mg Use 5 mg [facility] ([facility]IL[facility]) 2-01 in each ity of 5 mg/spray 00:00: nostril as [place] (0.1 mL) 00 needed [facility] [place] (seizure). Branch levETIRAcet 0 Yes [id number] 1000mg Take 10 mL [facility] ([facility]PR[facility]) 2-01 by mouth ity of 100 mg/mL 00:00: in the [place] oral 00 morning Medical solution and 10 mL Branch in the evening. SUMAtriptan 2022-0 Yes [id number] 20mg Use 1 [facility] 20 2-01 [place] in 1 ity of mg/actuatio 00:00: nostril as [place] n nasal 00 needed Medical spray (migraine) Branch . midazolam 2022-0 Yes [id number] 5mg Use 5 mg [facility] ([facility]IL[facility]) 2-01 in each ity of 5 mg/spray 00:00: nostril as [place] (0.1 mL) 00 needed [facility] [place] (seizure). Branch levETIRAcet 2022-0 Yes [id number] 1000mg Take 10 mL [facility] (KEPPR[facility]) 2-01 by mouth ity of 100 mg/mL 00:00: in the [place] oral 00 morning Medical solution and 10 mL Branch in the evening. SUMAtriptan 2022-0 Yes [id number] 20mg Use 1 [facility] 20 2-01 [place] in 1 ity of mg/actuatio 00:00: nostril as [place] n nasal 00 needed Medical spray (migraine) Branch . midazolam 2022-0 Yes [id number] 5mg Use 5 mg [facility] ([facility]IL[facility]) 2-01 in each ity of 5 mg/spray 00:00: nostril as [place] (0.1 mL) 00 needed [facility] [place] (seizure). Branch levETIRAcet 2022-0 Yes [id number] 1000mg Take 10 mL [facility] ([facility]PPR[facility]) 2-01 by mouth ity of 100 mg/mL 00:00: in the [place] oral 00 morning Medical solution and 10 mL Branch in the evening. SUMAtriptan 2022-0 Yes [id number] 20mg Use 1 [facility] 20 2-01 [place] in 1 ity of mg/actuatio 00:00: nostril as [place] n nasal 00 needed Medical spray (migraine) Branch . midazolam 2022-0 Yes [id number] 5mg Use 5 mg [facility] ([facility]IL[facility]) 2-01 in each ity of 5 mg/spray 00:00: nostril as [place] (0.1 mL) 00 needed [facility] [place] (seizure). Branch levETIRAcet 0 Yes [id number] 1000mg Take 10 mL [facility] (KEPPRA) 2-01 by mouth ity of 100 mg/mL 00:00: in the [place] oral 00 morning Medical solution and 10 mL Branch in the evening. SUMAtriptan 2022-0 Yes [id number] 20mg Use 1 [facility] 20 2-01 [place] in 1 ity of mg/actuatio 00:00: nostril as [place] n nasal 00 needed Medical spray (migraine) Branch . midazolam 2022-0 Yes [id number] 5mg Use 5 mg [facility] ([facility]IL[facility]) 2-01 in each ity of 5 mg/spray 00:00: nostril as [place] (0.1 mL) 00 needed [facility] [place] (seizure). Branch levETIRAcet 0 Yes [id number] 1000mg Take 10 mL [facility] (KEPPRA) 2-01 by mouth ity of 100 mg/mL 00:00: in the [place] oral 00 morning Medical solution and 10 mL Branch in the evening. SUMAtriptan 2022-0 Yes [id number] 20mg Use 1 [facility] 20 2-01 [place] in 1 ity of mg/actuatio 00:00: nostril as [place] n nasal 00 needed Medical spray (migraine) Branch . midazolam 2022-0 Yes [id number] 5mg Use 5 mg [facility] ([facility]IL[facility]) 2-01 in each ity of 5 mg/spray 00:00: nostril as [place] (0.1 mL) 00 needed [facility] [place] (seizure). Branch levETIRAcet 0 Yes [id number] 1000mg Take 10 mL [facility] (KEPPRA) 2-01 by mouth ity of 100 mg/mL 00:00: in the [place] oral 00 morning Medical solution and 10 mL Branch in the evening. SUMAtriptan 2022-0 Yes [id number] 20mg Use 1 [facility] 20 2-01 [place] in 1 ity of mg/actuatio 00:00: nostril as [place] n nasal 00 needed Medical spray (migraine) Branch . midazolam 2022-0 Yes [id number] 5mg Use 5 mg [facility] ([facility]IL[facility]) 2-01 in each ity of 5 mg/spray 00:00: nostril as [place] (0.1 mL) 00 needed [facility] [place] (seizure). Branch levETIRAcet 0 Yes [id number] 1000mg Take 10 mL [facility] (KEPPRA) 2-01 by mouth ity of 100 mg/mL 00:00: in the [place] oral 00 morning Medical solution and 10 mL Branch in the evening. midazolam 2022-0 Yes [id number] 5mg Use 5 mg [facility] ([facility]IL[facility]) 2-01 in each ity of 5 mg/spray 00:00: nostril as [place] (0.1 mL) 00 needed [facility] [place] (seizure). Branch levETIRAcet 0 Yes [id number] 1000mg Take 10 mL [facility] (KEPPRA) 2-01 by mouth ity of 100 mg/mL 00:00: in the [place] oral 00 morning Medical solution and 10 mL Branch in the evening. midazolam 2022-0 Yes [id number] 5mg Use 5 mg [facility] ([facility]IL[facility]) 2-01 in each ity of 5 mg/spray 00:00: nostril as [place] (0.1 mL) 00 needed [facility] [place] (seizure). Branch levETIRAcet 0 Yes [id number] 1000mg Take 10 mL [facility] (KEPPRA) 2-01 by mouth ity of 100 mg/mL 00:00: in the [place] oral 00 morning Medical solution and 10 mL Branch in the evening. midazolam 0 Yes [id number] 5mg Use 5 mg [facility] ([facility]IL[facility]) 2-01 in each ity of 5 mg/spray 00:00: nostril as [place] (0.1 mL) 00 needed [facility] [place] (seizure). Branch levETIRAcet 0 Yes [id number] 1000mg Take 10 mL [facility] (KEPPRA) 2-01 by mouth ity of 100 mg/mL 00:00: in the [place] oral 00 morning Medical solution and 10 mL Branch in the evening. midazolam 0 Yes [id number] 5mg Use 5 mg [facility] ([facility]IL[facility]) 2-01 in each ity of 5 mg/spray 00:00: nostril as [place] (0.1 mL) 00 needed [facility] [place] (seizure). Branch levETIRAcet 0 Yes [id number] 1000mg Take 10 mL [facility] ([facility]PR[facility]) 2-01 by mouth ity of 100 mg/mL 00:00: in the [place] oral 00 morning Medical solution and 10 mL Branch in the evening. midazolam 0 Yes [id number] 5mg Use 5 mg [facility] ([facility]IL[facility]) 2-01 in each ity of 5 mg/spray 00:00: nostril as [place] (0.1 mL) 00 needed [facility] [place] (seizure). Branch levETIRAcet 0 Yes [id number] 1000mg Take 10 mL [facility] ([facility]PPRA) 2-01 by mouth ity of 100 mg/mL 00:00: in the [place] oral 00 morning Medical solution and 10 mL Branch in the evening. midazolam 0 Yes [id number] 5mg Use 5 mg [facility] ([facility]) 2-01 in each ity of 5 mg/spray 00:00: nostril as [place] (0.1 mL) 00 needed [facility] [place] (seizure). Branch levETIRAcet Yes [id number] 1000mg Take 10 mL [facility] (KEPPRA) 2-01 by mouth ity of 100 mg/mL 00:00: in the [place] oral 00 morning Medical solution and 10 mL Branch in the evening. midazolam Yes [id number] 5mg Use 5 mg [facility] ([facility]IL[facility]) 2-01 in each ity of 5 mg/spray 00:00: nostril as [place] (0.1 mL) 00 needed [facility] [place] (seizure). Branch levETIRAcet Yes [id number] 1000mg Take 10 mL [facility] ([facility]PPR[facility]) 2-01 by mouth ity of 100 mg/mL 00:00: in the [place] oral 00 morning Medical solution and 10 mL Branch in the evening. midazolam Yes [id number] 5mg Use 5 mg [facility] ([facility]IL[facility]) 2-01 in each ity of 5 mg/spray 00:00: nostril as [place] (0.1 mL) 00 needed [facility] [place] (seizure). Branch levETIRAcet Yes [id number] 1000mg Take 10 mL [facility] (KEPPRA) 2-01 by mouth ity of 100 mg/mL 00:00: in the [place] oral 00 morning Medical solution and 10 mL Branch in the evening. midazolam Yes [id number] 5mg Use 5 mg [facility] ([facility]IL[facility]) 2-01 in each ity of 5 mg/spray 00:00: nostril as [place] (0.1 mL) 00 needed [facility] [place] (seizure). Branch levETIRAcet Yes [id number] 1000mg Take 10 mL [facility] (KEPPRA) 2-01 by mouth ity of 100 mg/mL 00:00: in the [place] oral 00 morning Medical solution and 10 mL Branch in the evening. midazolam Yes [id number] 5mg Use 5 mg [facility] ([facility]IL[facility]) 2-01 in each ity of 5 mg/spray 00:00: nostril as [place] (0.1 mL) 00 needed [facility] [place] (seizure). Branch levETIRAcet 2023-0 Yes [id number] 1000mg Take 10 mL [facility] (KEPPRA) 2-01 by mouth ity of 100 mg/mL 00:00: in the [place] oral 00 morning Medical solution and 10 mL Branch in the evening. midazolam Yes [id number] 5mg Use 5 mg [facility] (NAYZILAM) 2-01 in each ity of 5 mg/spray 00:00: nostril [place] (0.1 mL) 00 needed [facility] [place] (seizure). Branch levETIRAcet Yes [id number] 1000mg Take 10 mL [facility] am (KEPPRA) 2-01 by mouth ity of 100 mg/mL 00:00: in the [place] oral 00 morning Medical solution and 10 mL Branch in the evening. midazolam Yes [id number] 5mg Use 5 mg [facility] (NAYZILAM) 2-01 in each ity of 5 mg/spray 00:00: nostril as [place] (0.1 mL) 00 needed [facility] [place] (seizure). Branch levETIRAcet Yes [id number] 1000mg Take 10 mL [facility] am (KEPPRA) 2-01 by mouth ity of 100 mg/mL 00:00: in the [place] oral 00 morning Medical solution and 10 mL Branch in the evening. midazolam Yes [id number] 5mg Use 5 mg [facility] (NAYZILAM) 2-01 in each ity of 5 mg/spray 00:00: nostril as [place] (0.1 mL) 00 needed [facility] [place] (seizure). Branch levETIRAcet Yes [id number] 1000mg Take 10 mL [facility] am (KEPPRA) 2-01 by mouth ity of 100 mg/mL 00:00: in the [place] oral 00 morning Medical solution and 10 mL Branch in the evening. midazolam 0 Yes [id number] 5mg Use 5 mg [facility] (NAYZILAM) 2-01 in each ity of 5 mg/spray 00:00: nostril as [place] (0.1 mL) 00 needed [facility] [place] (seizure). Branch levETIRAcet Yes [id number] 1000mg Take 10 mL [facility] am (KEPPRA) 2-01 by mouth ity of 100 mg/mL 00:00: in the [place] oral 00 morning Medical solution and 10 mL Branch in the evening. midazolam 0 Yes [id number] 5mg Use 5 mg [facility] (NAYZILAM) 2-01 in each ity of 5 mg/spray 00:00: nostril as [place] (0.1 mL) 00 needed [facility] [place] (seizure). Branch levETIRAcet 0 Yes [id number] 1000mg Take 10 mL [facility] am (KEPPRA) 2-01 by mouth ity of 100 mg/mL 00:00: in the [place] oral 00 morning Medical solution and 10 mL Branch in the evening. midazolam 0 Yes [id number] 5mg Use 5 mg [facility] (NAYZILAM) 2-01 in each ity of 5 mg/spray 00:00: nostril as [place] (0.1 mL) 00 needed [facility] [place] (seizure). Branch levETIRAcet 0 Yes [id number] 1000mg Take 10 mL [facility] am (KEPPRA) 2-01 by mouth ity of 100 mg/mL 00:00: in the [place] oral 00 morning Medical solution and 10 mL Branch in the evening. midazolam 0 Yes [id number] 5mg Use 5 mg [facility] (NAYZILAM) 2-01 in each ity of 5 mg/spray 00:00: nostril as [place] (0.1 mL) 00 needed [facility] [place] (seizure). Branch levETIRAcet 0 Yes [id number] 1000mg Take 10 mL [facility] am (KEPPRA) 2-01 by mouth ity of 100 mg/mL 00:00: in the [place] oral 00 morning Medical solution and 10 mL Branch in the evening. midazolam 2022-0 Yes [id number] 5mg Use 5 mg [facility] (NAYZILAM) 2-01 in each ity of 5 mg/spray 00:00: nostril as [place] (0.1 mL) 00 needed [facility] [place] (seizure). Branch levETIRAcet 0 Yes [id number] 1000mg Take 10 mL [facility] am (KEPPRA) 2-01 by mouth ity of 100 mg/mL 00:00: in the [place] oral 00 morning Medical solution and 10 mL Branch in the evening. midazolam 2023-0 Yes [id number] 5mg Use 5 mg [facility] (NAYZILAM) 2-01 in each ity of 5 mg/spray 00:00: nostril as [place] (0.1 mL) 00 needed [facility] [place] (seizure). Branch levETIRAcet 0 Yes [id number] 1000mg Take 10 mL [facility] (KEPPRA) 2-01 by mouth ity of 100 mg/mL 00:00: in the [place] oral 00 morning Medical solution and 10 mL Branch in the evening. midazolam 0 Yes [id number] 5mg Use 5 mg [facility] (NAYZILAM) 2-01 in each ity of 5 mg/spray 00:00: nostril as [place] (0.1 mL) 00 needed [facility] [place] (seizure). Branch levETIRAcet Yes [id number] 1000mg Take 10 mL [facility] (KEPPRA) 2-01 by mouth ity of 100 mg/mL 00:00: in the [place] oral 00 morning Medical solution and 10 mL Branch in the evening. midazolam 0 Yes [id number] 5mg Use 5 mg [facility] (NAYZILAM) 2-01 in each ity of 5 mg/spray 00:00: nostril as [place] (0.1 mL) 00 needed [facility] [place] (seizure). Branch levETIRAcet 0 Yes [id number] 1000mg Take 10 mL [facility] am (KEPPRA) 2-01 by mouth ity of 100 mg/mL 00:00: in the [place] oral 00 morning Medical solution and 10 mL Branch in the evening. midazolam 0 Yes [id number] 5mg Use 5 mg [facility] (NAYZILAM) 2-01 in each ity of 5 mg/spray 00:00: nostril as [place] (0.1 mL) 00 needed [facility] [place] (seizure). Branch levETIRAcet 0 Yes [id number] 1000mg Take 10 mL [facility] am (KEPPRA) 2-01 by mouth ity of 100 mg/mL 00:00: in the [place] oral 00 morning Medical solution and 10 mL Branch in the evening. midazolam 2022-0 Yes [id number] 5mg Use 5 mg [facility] (NAYZILAM) 2-01 in each ity of 5 mg/spray 00:00: nostril as [place] (0.1 mL) 00 needed [facility] [place] (seizure). Branch levETIRAcet 0 Yes [id number] 1000mg Take 10 mL [facility] am (KEPPRA) 2-01 by mouth ity of 100 mg/mL 00:00: in the [place] oral 00 morning Medical solution and 10 mL Branch in the evening. midazolam 0 Yes [id number] 5mg Use 5 mg [facility] (NAYZILAM) 2-01 in each ity of 5 mg/spray 00:00: nostril as [place] (0.1 mL) 00 needed [facility] [place] (seizure). Branch levETIRAcet 0 Yes [id number] 1000mg Take 10 mL [facility] am (KEPPRA) 2-01 by mouth ity of 100 mg/mL 00:00: in the [place] oral 00 morning Medical solution and 10 mL Branch in the evening. midazolam 0 Yes [id number] 5mg Use 5 mg [facility] (NAYZILAM) 2-01 in each ity of 5 mg/spray 00:00: nostril as [place] (0.1 mL) 00 needed [facility] [place] (seizure). Branch levETIRAcet 0 Yes [id number] 1000mg Take 10 mL [facility] am (KEPPRA) 2-01 by mouth ity of 100 mg/mL 00:00: in the [place] oral 00 morning Medical solution and 10 mL Branch in the evening. midazolam 0 Yes [id number] 5mg Use 5 mg [facility] (NAYZILAM) 2-01 in each ity of 5 mg/spray 00:00: nostril as [place] (0.1 mL) 00 needed [facility] [place] (seizure). Branch levETIRAcet 0 Yes [id number] 1000mg Take 10 mL [facility] am (KEPPRA) 2-01 by mouth ity of 100 mg/mL 00:00: in the [place] oral 00 morning Medical solution and 10 mL Branch in the evening. midazolam 2022-0 Yes [id number] 5mg Use 5 mg [facility] (NAYZILAM) 2-01 in each ity of 5 mg/spray 00:00: nostril as [place] (0.1 mL) 00 needed [facility] [place] (seizure). Branch levETIRAcet 0 Yes [id number] 1000mg Take 10 mL [facility] am (KEPPRA) 2-01 by mouth ity of 100 mg/mL 00:00: in the [facility] 00 morning Medical solution and 10 mL Branch in the evening. midazolam 0 Yes [id number] 5mg Use 5 mg [facility] (NAYZILAM) 2-01 in each ity of 5 mg/spray 00:00: nostril as [place] (0.1 mL) 00 needed [facility] [place] (seizure). Branch levETIRAcet Yes [id number] 1000mg Take 10 mL [facility] am (KEPPRA) 2-01 by mouth ity of 100 mg/mL 00:00: in the [facility] 00 morning Medical solution and 10 mL Branch in the evening. midazolam Yes [id number] 5mg Use 5 mg [facility] (NAYZILAM) 2-01 in each ity of 5 mg/spray 00:00: nostril as [place] (0.1 mL) 00 needed [facility] [place] (seizure). Branch levETIRAcet Yes [id number] 1000mg Take 10 mL [facility] am (KEPPRA) 2-01 by mouth ity of 100 mg/mL 00:00: in the [place] [address] morning Medical solution and 10 mL Branch in the evening. midazolam Yes [id number] 5mg Use 5 mg [facility] (NAYZILAM) 2-01 in each ity of 5 mg/spray 00:00: nostril as [place] (0.1 mL) 00 needed [facility] [place] (seizure). Branch midazolam Yes [id number] 5mg Use 5 mg [facility] (NAYZILAM) 2-01 in each ity of 5 mg/spray 00:00: nostril as [place] (0.1 mL) 00 needed [facility] [place] (seizure). Branch midazolam 0 Yes [id number] 5mg Use 5 mg [facility] (NAYZILAM) 2-01 in each ity of 5 mg/spray 00:00: nostril as [place] (0.1 mL) 00 needed [facility] [place] (seizure). Branch midazolam Yes [id number] 5mg Use 5 mg [facility] (NAYZILAM) 2-01 in each ity of 5 mg/spray 00:00: nostril as [place] (0.1 mL) 00 needed [facility] [place] (seizure). Branch midazolam Yes [id number] 5mg Use 5 mg [facility] (NAYZILAM) 2-01 in each ity of 5 mg/spray 00:00: nostril as [place] (0.1 mL) 00 needed [facility] [place] (seizure). Branch midazolam Yes [id number] 5mg Use 5 mg [facility] (NAYZILAM) 2-01 in each ity of 5 mg/spray 00:00: nostril as [place] (0.1 mL) 00 needed [facility] [place] (seizure). Branch midazolam Yes [id number] 5mg Use 5 mg [facility] (NAYZILAM) 2-01 in each ity of 5 mg/spray 00:00: nostril as [place] (0.1 mL) 00 needed [facility] [place] (seizure). Branch midazolam Yes [id number] 5mg Use 5 mg [facility] (NAYZILAM) 2-01 in each ity of 5 mg/spray 00:00: nostril as [place] (0.1 mL) 00 needed [facility] [place] (seizure). Branch midazolam Yes [id number] 5mg Use 5 mg [facility] (NAYZILAM) 2-01 in each ity of 5 mg/spray 00:00: nostril as [place] (0.1 mL) 00 needed [facility] [place] (seizure). Branch midazolam Yes [id number] 5mg Use 5 mg [facility] (NAYZILAM) 2-01 in each ity of 5 mg/spray 00:00: nostril as [place] (0.1 mL) 00 needed [facility] [place] (seizure). Branch midazolam Yes [id number] 5mg Use 5 mg [facility] (NAYZILAM) 2-01 in each ity of 5 mg/spray 00:00: nostril as [place] (0.1 mL) 00 needed [facility] [place] (seizure). Branch midazolam Yes [id number] 5mg Use 5 mg [facility] (NAYZILAM) 2-01 in each ity of 5 mg/spray 00:00: nostril as [place] (0.1 mL) 00 needed [facility] [place] (seizure). Branch midazolam Yes [id number] 5mg Use 5 mg [facility] (NAYZILAM) 2-01 in each ity of 5 mg/spray 00:00: nostril as [place] (0.1 mL) 00 needed [facility] [place] (seizure). Branch midazolam Yes [id number] 5mg Use 5 mg [facility] (NAYZILAM) 2-01 in each ity of 5 mg/spray 00:00: nostril as [place] (0.1 mL) 00 needed [facility] [place] (seizure). Branch midazolam Yes [id number] 5mg Use 5 mg [facility] (NAYZILAM) 2-01 in each ity of 5 mg/spray 00:00: nostril as [place] (0.1 mL) 00 needed [facility] [place] (seizure). Branch midazolam Yes [id number] 5mg Use 5 mg [facility] (NAYZILAM) 2-01 in each ity of 5 mg/spray 00:00: nostril as [place] (0.1 mL) 00 needed [facility] [place] (seizure). Branch midazolam Yes [id number] 5mg Use 5 mg [facility] (NAYZILAM) 2-01 in each ity of 5 mg/spray 00:00: nostril as [place] (0.1 mL) 00 needed [facility] [place] (seizure). Branch midazolam Yes [id number] 5mg Use 5 mg [facility] (NAYZILAM) 2-01 in each ity of 5 mg/spray 00:00: nostril as [place] (0.1 mL) 00 needed [facility] [place] (seizure). Branch midazolam Yes [id number] 5mg Use 5 mg [facility] (NAYZILAM) 2-01 in each ity of 5 mg/spray 00:00: nostril as [place] (0.1 mL) 00 needed [facility] [place] (seizure). Branch midazolam Yes [id number] 5mg Use 5 mg [facility] (NAYZILAM) 2-01 in each ity of 5 mg/spray 00:00: nostril as [place] (0.1 mL) 00 needed [facility] [place] (seizure). Branch midazolam Yes [id number] 5mg Use 5 mg [facility] (NAYZILAM) 2-01 in each ity of 5 mg/spray 00:00: nostril as [place] (0.1 mL) 00 needed [facility] [place] (seizure). Branch midazolam Yes [id number] 5mg Use 5 mg [facility] (NAYZILAM) 2-01 in each ity of 5 mg/spray 00:00: nostril as [place] (0.1 mL) 00 needed [facility] [place] (seizure). Branch midazolam Yes [id number] 5mg Use 5 mg [facility] (NAYZILAM) 2-01 in each ity of 5 mg/spray 00:00: nostril as [place] (0.1 mL) 00 needed [facility] [place] (seizure). Branch midazolam Yes [id number] 5mg Use 5 mg [facility] (NAYZILAM) 2-01 in each ity of 5 mg/spray 00:00: nostril as [place] (0.1 mL) 00 needed [facility] [place] (seizure). Branch midazolam Yes [id number] 5mg Use 5 mg [facility] (NAYZILAM) 2-01 in each ity of 5 mg/spray 00:00: nostril as [place] (0.1 mL) 00 needed [facility] [place] (seizure). Branch midazolam Yes [id number] 5mg Use 5 mg [facility] (NAYZILAM) 2-01 in each ity of 5 mg/spray 00:00: nostril as [place] (0.1 mL) 00 needed [facility] [place] (seizure). Branch midazolam Yes [id number] 5mg Use 5 mg [facility] (NAYZILAM) 2-01 in each ity of 5 mg/spray 00:00: nostril as [place] (0.1 mL) 00 needed [facility] [place] (seizure). Branch midazolam Yes [id number] 5mg Use 5 mg [facility] (NAYZILAM) 2-01 in each ity of 5 mg/spray 00:00: nostril as [place] (0.1 mL) 00 needed [facility] [place] (seizure). Branch midazolam Yes [id number] 5mg Use 5 mg [facility] (NAYZILAM) 2-01 in each ity of 5 mg/spray 00:00: nostril as [place] (0.1 mL) 00 needed [facility] [place] (seizure). Branch midazolam Yes [id number] 5mg Use 5 mg [facility] (NAYZILAM) 2 in each ity of 5 mg/spray 00:00: nostril as [place] (0.1 mL) 00 needed [facility] [place] (seizure). Branch midazolam Yes [id number] 5mg Use 5 mg [facility] (NAYZILAM) 2 in each ity of 5 mg/spray 00:00: nostril as [place] (0.1 mL) 00 needed [facility] [place] (seizure). Branch midazolam Yes [id number] 5mg Use 5 mg [facility] (NAYZILAM) 2 in each ity of 5 mg/spray 00:00: nostril as [place] (0.1 mL) 00 needed [facility] [place] (seizure). Branch midazolam Yes [id number] 5mg Use 5 mg [facility] (NAYZILAM) 2 in each ity of 5 mg/spray 00:00: nostril as [place] (0.1 mL) 00 needed [facility] [place] (seizure). Branch midazolam 2022- No [id number] 5mg Use 5 mg [facility] (NAYZILAM) 08-19 in each ity o f 5 mg/spray 00:00: 00:00 nostril as [place] (0.1 mL) 00 :00 needed [facility] [place] (seizure). Branch midazolam 2022- No [id number] 5mg Use 5 mg [facility] (NAYZILAM) 08-19 in each ity o f 5 mg/spray 00:00: 00:00 nostril as [place] (0.1 mL) 00 :00 needed [facility] [place] (seizure). Branch levETIRAcet 2022- No [id number] 1000mg Take 10 mL [facility] am (KEPPRA) 08-19 by mouth ity of 100 mg/mL 00:00: 00:00 in the [place] oral 00 :00 morning Medical solution and 10 mL Branch in the evening. SUMAtriptan 2022-0 3- No [id number] 20mg Use 1 [facility] 20 08-19 06-05 [place] in 1 ity of mg/actuatio 00:00: 00:00 nostril as [place] n nasal 00 :00 needed Medical spray (migraine) Branch . SUMAtriptan 2022-0 2022- No [id number] 20mg Use 1 [facility] 20 08-19 06-05 [place] in 1 ity of mg/actuatio 00:00: 00:00 nostril as [place] n nasal 00 :00 needed Medical spray (migraine) Branch . SUMAtriptan 2022-0 2022- No [id number] 20mg Use 1 [facility] 20 08-19 06-05 [place] in 1 ity of mg/actuatio 00:00: 00:00 [...] FOR WHEEZING/S HORTNESS OF BREATH. levalbutero 2022-0 2023- No INHALE 2 U nivers l (XOPENEX 1-31 08-07 [place]FF[place] BY ity of HFA) 45 [...] HORTNESS OF BREATH. ciprofloxac 3-0 3- No [id number] 500mg Take 10 mL [facility] in (CIPRO) 08-18 by mouth ity of 250 mg/5 mL 00:00: 05:59 every 12 [place] suspension 00 :00 (twelve) Medic al hours for Branch 5 days. ciprofloxac 3-0 3- No [id number] 500mg Take 10 mL [facility] in (CIPRO) 08-18 by mouth ity of 250 mg/5 mL 00:00: 05:59 every 12 [place] suspension 00 :00 (twelve) Medic al hours for Branch 5 days. ciprofloxac 3-0 3- No [id number] 500mg Take 10 mL [facility] in (CIPRO) 08-18 by mouth ity of 250 mg/5 mL 00:00: 05:59 every 12 [place] suspension 00 :00 (twelve) Medic al hours for Branch 5 days. ciprofloxac 2023-0 2023- No [id number] 500mg Take 10 mL [facility] in (CIPRO) 08-18 by mouth ity of 250 mg/5 mL 00:00: 05:59 every 12 [place] suspension 00 :00 (twelve) Medic al hours for Branch 5 days. ciprofloxac 2023-0 2023- No [id number] 500mg Take 10 mL [facility] in (CIPRO) 08-18 by mouth ity of 250 mg/5 mL 00:00: 05:59 every 12 [place] suspension 00 :00 (twelve) Medic al hours for Branch 5 days. ciprofloxac 2023-0 2023- No [id number] 500mg Take 10 mL [facility] in (CIPRO) 08-18 by mouth ity of 250 mg/5 mL 00:00: 05:59 every 12 [place] suspension 00 :00 (twelve) Medic al hours for Branch 5 days. ciprofloxac 2023-0 2023- No [id number] 500mg Take 10 mL [facility] in (CIPRO) 08-18 by mouth ity of 250 mg/5 mL 00:00: 05:59 every 12 [place] suspension 00 :00 (twelve) Medic al hours for Branch 5 days. ciprofloxac 2023-0 2023- No [id number] 500mg Take 10 mL [facility] in (CIPRO) [...] Branc h for 2 days. dexamethaso 2023-0 3- No 12mg Take 120 U nivers [...] h for 2 days. benralizuma 3-0 Yes [id number] 30mg inject 1 [facility] b (FASENRA 1-24 Pen under ity of PEN) 30 00:00: the skin [place] mg/mL AtIn 00 every 8 Medica l (eight) Branch weeks. benralizuma 3-0 Yes [id number] 30mg inject 1 [facility] b (FASENRA 1-24 Pen under ity of PEN) 30 00:00: the skin [place] mg/mL AtIn 00 every 8 Medica l (eight) Branch weeks. benralizuma 3-0 Yes [id number] 30mg inject 1 [facility] b (FASENRA 1-24 Pen under ity of PEN) 30 00:00: the skin [place] mg/mL AtIn 00 every 8 Medica l (eight) Branch weeks. benralizuma 2023-0 Yes [id number] 30mg inject 1 [facility] b (FASENRA 1-24 Pen under ity of PEN) 30 00:00: the skin [place] mg/mL AtIn 00 every 8 Medica l (eight) Branch weeks. benralizuma 3-0 Yes [id number] 30mg inject 1 [facility] b (FASENRA 1-24 Pen under ity of PEN) 30 00:00: the skin [place] mg/mL AtIn 00 every 8 Medica l (eight) Branch weeks. benralizuma 2023-0 Yes [id number] 30mg inject 1 [facility] b (FASENRA 1-24 Pen under ity of PEN) 30 00:00: the skin [place] mg/mL AtIn 00 every 8 Medica l (eight) Branch weeks. benralizuma 3-0 Yes [id number] 30mg inject 1 [facility] b (FASENRA 1-24 Pen under ity of PEN) 30 00:00: the skin [place] mg/mL AtIn 00 every 8 Medica l (eight) Branch weeks. benralizuma 3-0 Yes [id number] 30mg inject 1 [facility] b (FASENRA 1-24 Pen under ity of PEN) 30 00:00: the skin [place] mg/mL AtIn 00 every 8 Medica l (eight) Branch weeks. benralizuma 3-0 Yes [id number] 30mg inject 1 [facility] b (FASENRA 1-24 Pen under ity of PEN) 30 00:00: the skin [place] mg/mL AtIn 00 every 8 Medica l (eight) Branch weeks. benralizuma 3-0 Yes [id number] 30mg inject 1 [facility] b (FASENRA 1-24 Pen under ity of PEN) 30 00:00: the skin [place] mg/mL AtIn 00 every 8 Medica l (eight) Branch weeks. benralizuma 3-0 Yes [id number] 30mg inject 1 [facility] b (FASENRA 1-24 Pen under ity of PEN) 30 00:00: the skin [place] mg/mL AtIn 00 every 8 Medica l (eight) Branch weeks. benralizuma 2023-0 Yes [id number] 30mg inject 1 [facility] b (FASENRA 1-24 Pen under ity of PEN) 30 00:00: the skin [place] mg/mL AtIn 00 every 8 Medica l (eight) Branch weeks. benralizuma 2023-0 Yes [id number] 30mg inject 1 [facility] b (FASENRA 1-24 Pen under ity of PEN) 30 00:00: the skin [place] mg/mL AtIn 00 every 8 Medica l (eight) Branch weeks. benralizuma 2023-0 Yes [id number] 30mg inject 1 [facility] b (FASENRA 1-24 Pen under ity of PEN) 30 00:00: the skin [place] mg/mL AtIn 00 every 8 Medica l (eight) Branch weeks. benralizuma 2023-0 Yes [id number] 30mg inject 1 [facility] b (FASENRA 1-24 Pen under ity of PEN) 30 00:00: the skin [place] mg/mL AtIn 00 every 8 Medica l (eight) Branch weeks. benralizuma 2023-0 Yes [id number] 30mg inject 1 [facility] b (FASENRA 1-24 Pen under ity of PEN) 30 00:00: the skin [place] mg/mL AtIn 00 every 8 Medica l (eight) Branch weeks. benralizuma 2023-0 Yes [id number] 30mg inject 1 [facility] b (FASENRA 1-24 Pen under ity of PEN) 30 00:00: the skin [place] mg/mL AtIn 00 every 8 Medica l (eight) Branch weeks. benralizuma 3-0 Yes [id number] 30mg inject 1 [facility] b (FASENRA 1-24 Pen under ity of PEN) 30 00:00: the skin [place] mg/mL AtIn 00 every 8 Medica l (eight) Branch weeks. benralizuma 2023-0 Yes [id number] 30mg inject 1 [facility] b (FASENRA 1-24 Pen under ity of PEN) 30 00:00: the skin [place] mg/mL AtIn 00 every 8 Medica l (eight) Branch weeks. benralizuma 2023-0 Yes [id number] 30mg inject 1 [facility] b (FASENRA 1-24 Pen under ity of PEN) 30 00:00: the skin [place] mg/mL AtIn 00 every 8 Medica l (eight) Branch weeks. benralizuma 2023-0 Yes [id number] 30mg inject 1 [facility] b (FASENRA 1-24 Pen under ity of PEN) 30 00:00: the skin [place] mg/mL AtIn 00 every 8 Medica l (eight) Branch weeks. benralizuma 2023-0 Yes [id number] 30mg inject 1 [facility] b (FASENRA 1-24 Pen under ity of PEN) 30 00:00: the skin [place] mg/mL AtIn 00 every 8 Medica l (eight) Branch weeks. benralizuma 2023-0 Yes [id number] 30mg inject 1 [facility] b (FASENRA 1-24 Pen under ity of PEN) 30 00:00: the skin [place] mg/mL AtIn 00 every 8 Medica l (eight) Branch weeks. benralizuma 2023-0 Yes [id number] 30mg inject 1 [facility] b (FASENRA 1-24 Pen under ity of PEN) 30 00:00: the skin [place] mg/mL AtIn 00 every 8 Medica l (eight) Branch weeks. benralizuma 2023-0 Yes [id number] 30mg inject 1 [facility] b (FASENRA 1-24 Pen under ity of PEN) 30 00:00: the skin [place] mg/mL AtIn 00 every 8 Medica l (eight) Branch weeks. benralizuma 2023-0 Yes [id number] 30mg inject 1 [facility] b (FASENRA 1-24 Pen under ity of PEN) 30 00:00: the skin [place] mg/mL AtIn 00 every 8 Medica l (eight) Branch weeks. benralizuma 2023-0 Yes [id number] 30mg inject 1 [facility] b (FASENRA 1-24 Pen under ity of PEN) 30 00:00: the skin [place] mg/mL AtIn 00 every 8 Medica l (eight) Branch weeks. benralizuma 2023-0 Yes [id number] 30mg inject 1 [facility] b (FASENRA 1-24 Pen under ity of PEN) 30 00:00: the skin [place] mg/mL AtIn 00 every 8 Medica l (eight) Branch weeks. benralizuma 2023-0 Yes [id number] 30mg inject 1 [facility] b (FASENRA 1-24 Pen under ity of PEN) 30 00:00: the skin [place] mg/mL AtIn 00 every 8 Medica l (eight) Branch weeks. benralizuma 2023-0 Yes [id number] 30mg inject 1 [facility] b (FASENRA 1-24 Pen under ity of PEN) 30 00:00: the skin [place] mg/mL AtIn 00 every 8 Medica l (eight) Branch weeks. benralizuma 2023-0 Yes [id number] 30mg inject 1 [facility] b (FASENRA 1-24 Pen under ity of PEN) 30 00:00: the skin [place] mg/mL AtIn 00 every 8 Medica l (eight) Branch weeks. benralizuma 3-0 Yes [id number] 30mg inject 1 [facility] b (FASENRA 1-24 Pen under ity of PEN) 30 00:00: the skin [place] mg/mL AtIn 00 every 8 Medica l (eight) Branch weeks. benralizuma 3-0 Yes [id number] 30mg inject 1 [facility] b (FASENRA 1-24 Pen under ity of PEN) 30 00:00: the skin [place] mg/mL AtIn 00 every 8 Medica l (eight) Branch weeks. benralizuma 3-0 Yes [id number] 30mg inject 1 [facility] b (FASENRA 1-24 Pen under ity of PEN) 30 00:00: the skin [place] mg/mL AtIn 00 every 8 Medica l (eight) Branch weeks. benralizuma 3-0 Yes [id number] 30mg inject 1 [facility] b (FASENRA 1-24 Pen under ity of PEN) 30 00:00: the skin [place] mg/mL AtIn 00 every 8 Medica l (eight) Branch weeks. benralizuma 3-0 Yes [id number] 30mg inject 1 [facility] b (FASENRA 1-24 Pen under ity of PEN) 30 00:00: the skin [place] mg/mL AtIn 00 every 8 Medica l (eight) Branch weeks. benralizuma 3-0 Yes [id number] 30mg inject 1 [facility] b (FASENRA 1-24 Pen under ity of PEN) 30 00:00: the skin [place] mg/mL AtIn 00 every 8 Medica l (eight) Branch weeks. benralizuma 2023-0 Yes [id number] 30mg inject 1 [facility] b (FASENRA 1-24 Pen under ity of PEN) 30 00:00: the skin [place] mg/mL AtIn 00 every 8 Medica l (eight) Branch weeks. benralizuma 2023-0 Yes [id number] 30mg inject 1 [facility] b (FASENRA 1-24 Pen under ity of PEN) 30 00:00: the skin [place] mg/mL AtIn 00 every 8 Medica l (eight) Branch weeks. benralizuma 2023-0 Yes [id number] 30mg inject 1 [facility] b (FASENRA 1-24 Pen under ity of PEN) 30 00:00: the skin [place] mg/mL AtIn 00 every 8 Medica l (eight) Branch weeks. benralizuma 2023-0 Yes [id number] 30mg inject 1 [facility] b (FASENRA 1-24 Pen under ity of PEN) 30 00:00: the skin [place] mg/mL AtIn 00 every 8 Medica l (eight) Branch weeks. benralizuma 2023-0 Yes [id number] 30mg inject 1 [facility] b (FASENRA 1-24 Pen under ity of PEN) 30 00:00: the skin [place] mg/mL AtIn 00 every 8 Medica l (eight) Branch weeks. benralizuma 2023-0 Yes [id number] 30mg inject 1 [facility] b (FASENRA 1-24 Pen under ity of PEN) 30 00:00: the skin [place] mg/mL AtIn 00 every 8 Medica l (eight) Branch weeks. benralizuma 2023-0 Yes [id number] 30mg inject 1 [facility] b (FASENRA 1-24 Pen under ity of PEN) 30 00:00: the skin [place] mg/mL AtIn 00 every 8 Medica l (eight) Branch weeks. benralizuma 2023-0 Yes [id number] 30mg inject 1 [facility] b (FASENRA 1-24 Pen under ity of PEN) 30 00:00: the skin [place] mg/mL AtIn 00 every 8 Medica l (eight) Branch weeks. benralizuma 2023-0 Yes [id number] 30mg inject 1 [facility] b (FASENRA 1-24 Pen under ity of PEN) 30 00:00: the skin [place] mg/mL AtIn 00 every 8 Medica l (eight) Branch weeks. benralizuma 2023-0 Yes [id number] 30mg inject 1 [facility] b (FASENRA 1-24 Pen under ity of PEN) 30 00:00: the skin [place] mg/mL AtIn 00 every 8 Medica l (eight) Branch weeks. benralizuma 2023-0 Yes [id number] 30mg inject 1 [facility] ([facility]ASENRA 1-24 Pen under ity of PEN) 30 00:00: the skin [place] mg/mL AtIn 00 every 8 [facility] (eight) Branch weeks. benralizuma 2023-0 Yes [id number] 30mg inject 1 [facility] ([facility]ASENRA 1-24 Pen under ity of PEN) 30 00:00: the skin [place] mg/mL AtIn 00 every 8 [facility] (eight) Branch weeks. benralizuma 2023-0 Yes [id number] 30mg inject 1 [facility] (FASENRA 1-24 Pen under ity of PEN) 30 00:00: the skin [place] mg/mL AtIn 00 every 8 [facility] (eight) Branch weeks. benralizuma 3-0 Yes [id number] 30mg inject 1 [facility] ([facility]ASENRA 1-24 Pen under ity of PEN) 30 00:00: the skin [place] mg/mL AtIn 00 every 8 [facility] (eight) Branch weeks. benralizuma 3-0 Yes [id number] 30mg inject 1 [facility] (FASENRA 1-24 Pen under ity of PEN) 30 00:00: the skin [place] mg/mL AtIn 00 every 8 [facility] (eight) Branch weeks. benralizuma 3-0 Yes [id number] 30mg inject 1 [facility] (FASENRA 1-24 Pen under ity of PEN) 30 00:00: the skin [place] mg/mL AtIn 00 every 8 Med[facility] l (eight) Branch weeks. benralizuma 2023-0 Yes [id number] 30mg inject 1 [facility] ([facility]ENRA 1-24 Pen under ity of PEN) 30 00:00: the skin [place] mg/mL AtIn 00 every 8 Medica l (eight) Branch weeks. benralizuma 2023-0 Yes [id number] 30mg inject 1 [facility] (FASENRA 1-24 Pen under ity of PEN) 30 00:00: the skin [place] mg/mL AtIn 00 every 8 Medica l (eight) Branch weeks. benralizuma 2023-0 Yes [id number] 30mg inject 1 [facility] (FASENRA 1-24 Pen under ity of PEN) 30 00:00: the skin [place] mg/mL AtIn 00 every 8 Medica l (eight) Branch weeks. benralizuma 2023-0 Yes [id number] 30mg inject 1 [facility] (FASENRA 1-24 Pen under ity of PEN) 30 00:00: the skin [place] mg/mL AtIn 00 every 8 Medica l (eight) Branch weeks. benralizuma 2023-0 Yes [id number] 30mg inject 1 [facility] (FASENRA 1-24 Pen under ity of PEN) 30 00:00: the skin [place] mg/mL AtIn 00 every 8 Medica l (eight) Branch weeks. benralizuma 2023-0 Yes [id number] 30mg inject 1 [facility] (FASENRA 1-24 Pen under ity of PEN) 30 00:00: the skin [place] mg/mL AtIn 00 every 8 Medica l (eight) Branch weeks. benralizuma 2023-0 Yes [id number] 30mg inject 1 [facility] (FASENRA 1-24 Pen under ity of PEN) 30 00:00: the skin [place] mg/mL AtIn 00 every 8 Medica l (eight) Branch weeks. benralizuma 2023-0 Yes [id number] 30mg inject 1 [facility] (FASENRA 1-24 Pen under ity of PEN) 30 00:00: the skin [place] mg/mL AtIn 00 every 8 Medica l (eight) Branch weeks. benralizuma 2023-0 Yes [id number] 30mg inject 1 [facility] (FASENRA 1-24 Pen under ity of PEN) 30 00:00: the skin [place] mg/mL AtIn 00 every 8 Medica l (eight) Branch weeks. benralizuma 2023-0 Yes [id number] 30mg inject 1 [facility] (FASENRA 1-24 Pen under ity of PEN) 30 00:00: the skin [place] mg/mL AtIn 00 every 8 Medica l (eight) Branch weeks. benralizuma 2023-0 Yes [id number] 30mg inject 1 [facility] (FASENRA 1-24 Pen under ity of PEN) 30 00:00: the skin [place] mg/mL AtIn 00 every 8 Medica l (eight) Branch weeks. benralizuma 2023-0 Yes [id number] 30mg inject 1 [facility] (FASENRA 1-24 Pen under ity of PEN) 30 00:00: the skin [place] mg/mL AtIn 00 every 8 Medica l (eight) Branch weeks. benralizuma 2023-0 Yes [id number] 30mg inject 1 [facility] (FASENRA 1-24 Pen under ity of PEN) 30 00:00: the skin [place] mg/mL AtIn 00 every 8 Medica l (eight) Branch weeks. benralizuma 2023-0 Yes [id number] 30mg inject 1 [facility] (FASENRA 1-24 Pen under ity of PEN) 30 00:00: the skin [place] mg/mL AtIn 00 every 8 Medica l (eight) Branch weeks. benralizuma 2023-0 Yes [id number] 30mg inject 1 [facility] (FASENRA 1-24 Pen under ity of PEN) 30 00:00: the skin [place] mg/mL AtIn 00 every 8 Medica l (eight) Branch weeks. benralizuma 2023-0 Yes [id number] 30mg inject 1 [facility] (FASENRA 1-24 Pen under ity of PEN) 30 00:00: the skin [place] mg/mL AtIn 00 every 8 Medica l (eight) Branch weeks. benralizuma 2023-0 Yes [id number] 30mg inject 1 [facility] (FASENRA 1-24 Pen under ity of PEN) 30 00:00: the skin [place] mg/mL AtIn 00 every 8 Medica l (eight) Branch weeks. benralizuma 2023-0 Yes [id number] 30mg inject 1 [facility] (FASENRA 1-24 Pen under ity of PEN) 30 00:00: the skin [place] mg/mL AtIn 00 every 8 Medica l (eight) Branch weeks. benralizuma 2023-0 Yes [id number] 30mg inject 1 [facility] (FASENRA 1-24 Pen under ity of PEN) 30 00:00: the skin [place] mg/mL AtIn 00 every 8 Medica l (eight) Branch weeks. benralizuma 2023-0 Yes [id number] 30mg inject 1 [facility] (FASENRA 1-24 Pen under ity of PEN) 30 00:00: the skin [place] mg/mL AtIn 00 every 8 Medica l (eight) Branch weeks. benralizuma 2023-0 Yes [id number] 30mg inject 1 [facility] (FASENRA 1-24 Pen under ity of PEN) 30 00:00: the skin [place] mg/mL AtIn 00 every 8 Medica l (eight) Branch weeks. benralizuma 2023-0 Yes [id number] 30mg inject 1 [facility] (FASENRA 1-24 Pen under ity of PEN) 30 00:00: the skin [place] mg/mL AtIn 00 every 8 Medica l (eight) Branch weeks. benralizuma 3-0 Yes [id number] 30mg inject 1 [facility] (FASENRA 1-24 Pen under ity of PEN) 30 00:00: the skin [place] mg/mL AtIn 00 every 8 Medica l (eight) Branch weeks. benralizuma 3-0 Yes [id number] 30mg inject 1 [facility] (FASENRA 1-24 Pen under ity of PEN) 30 00:00: the skin [place] mg/mL AtIn 00 every 8 Medica l (eight) Branch weeks. benralizuma 3-0 Yes [id number] 30mg inject 1 [facility] (FASENRA 1-24 Pen under ity of PEN) 30 00:00: the skin [place] mg/mL AtIn 00 every 8 Medica l (eight) Branch weeks. benralizuma 3-0 Yes [id number] 30mg inject 1 [facility] (FASENRA 1-24 Pen under ity of PEN) 30 00:00: the skin [place] mg/mL AtIn 00 every 8 Medica l (eight) Branch weeks. benralizuma 3-0 Yes [id number] 30mg inject 1 [facility] (FASENRA 1-24 Pen under ity of PEN) 30 00:00: the skin [place] mg/mL AtIn 00 every 8 Medica l (eight) Branch weeks. benralizuma 2023-0 Yes [id number] 30mg inject 1 [facility] (FASENRA 1-24 Pen under ity of PEN) 30 00:00: the skin [place] mg/mL AtIn 00 every 8 Medica l (eight) Branch weeks. benralizuma 2023-0 Yes [id number] 30mg inject 1 [facility] (FASENRA 1-24 Pen under ity of PEN) 30 00:00: the skin [place] mg/mL AtIn 00 every 8 Medica l (eight) Branch weeks. benralizuma 2023-0 Yes [id number] 30mg inject 1 [facility] (FASENRA 1-24 Pen under ity of PEN) 30 00:00: the skin [place] mg/mL AtIn 00 every 8 Medica l (eight) Branch weeks. benralizuma 2023-0 Yes [id number] 30mg inject 1 [facility] (FASENRA 1-24 Pen under ity of PEN) 30 00:00: the skin [place] mg/mL AtIn 00 every 8 Medica l (eight) Branch weeks. benralizuma 2023-0 Yes [id number] 30mg inject 1 [facility] (FASENRA 1-24 Pen under ity of PEN) 30 00:00: the skin [place] mg/mL AtIn 00 every 8 Medica l (eight) Branch weeks. benralizuma 2023-0 Yes [id number] 30mg inject 1 [facility] (FASENRA 1-24 Pen under ity of PEN) 30 00:00: the skin [place] mg/mL AtIn 00 every 8 Medica l (eight) Branch weeks. benralizuma 2023-0 Yes [id number] 30mg inject 1 [facility] (FASENRA 1-24 Pen under ity of PEN) 30 00:00: the skin [place] mg/mL AtIn 00 every 8 Medica l (eight) Branch weeks. benralizuma 2023-0 Yes [id number] 30mg inject 1 [facility] (FASENRA 1-24 Pen under ity of PEN) 30 00:00: the skin [place] mg/mL AtIn 00 every 8 Medica l (eight) Branch weeks. benralizuma 2023-0 Yes [id number] 30mg inject 1 [facility] (FASENRA 1-24 Pen under ity of PEN) 30 00:00: the skin [place] mg/mL AtIn 00 every 8 Medica l (eight) Branch weeks. benralizuma 2023-0 Yes [id number] 30mg inject 1 [facility] (FASENRA 1-24 Pen under ity of PEN) 30 00:00: the skin [place] mg/mL AtIn 00 every 8 Medica l (eight) Branch weeks. benralizuma 2023-0 Yes [id number] 30mg inject 1 [facility] (FASENRA 1-24 Pen under ity of PEN) 30 00:00: the skin [place] mg/mL AtIn 00 every 8 Medica l (eight) Branch weeks. benralizuma 2023-0 Yes [id number] 30mg inject 1 [facility] (FASENRA 1-24 Pen under ity of PEN) 30 00:00: the skin [place] mg/mL AtIn 00 every 8 Medica l (eight) Branch weeks. benralizuma 2023-0 Yes [id number] 30mg inject 1 [facility] (FASENRA 1-24 Pen under ity of PEN) 30 00:00: the skin [place] mg/mL AtIn 00 every 8 Medica l (eight) Branch weeks. benralizuma 2023-0 Yes [id number] 30mg inject 1 [facility] (FASENRA 1-24 Pen under ity of PEN) 30 00:00: the skin [place] mg/mL AtIn 00 every 8 Medica l (eight) Branch weeks. benralizuma 2023-0 Yes [id number] 30mg inject 1 [facility] (FASENRA 1-24 Pen under ity of PEN) 30 00:00: the skin [place] mg/mL AtIn 00 every 8 Medica l (eight) Branch weeks. benralizuma 2023-0 Yes [id number] 30mg inject 1 [facility] (FASENRA 1-24 Pen under ity of PEN) 30 00:00: the skin [place] mg/mL AtIn 00 every 8 Medica l (eight) Branch weeks. benralizuma 2023-0 Yes [id number] 30mg inject 1 [facility] (FASENRA 1-24 Pen under ity of PEN) 30 00:00: the skin [place] mg/mL AtIn 00 every 8 Medica l (eight) Branch weeks. benralizuma 2023-0 Yes [id number] 30mg inject 1 [facility] (FASENRA 1-24 Pen under ity of PEN) 30 00:00: the skin [place] mg/mL AtIn 00 every 8 Medica l (eight) Branch weeks. benralizuma 2023-0 Yes [id number] 30mg inject 1 [facility] (FASENRA 1-24 Pen under ity of PEN) 30 00:00: the skin [place] mg/mL AtIn 00 every 8 Medica l (eight) Branch weeks. benralizuma 2023-0 Yes [id number] 30mg inject 1 [facility] (FASENRA 1-24 Pen under ity of PEN) 30 00:00: the skin [place] mg/mL AtIn 00 every 8 Medica l (eight) Branch weeks. benralizuma 3-0 Yes [id number] 30mg inject 1 [facility] (FASENRA 1-24 Pen under ity of PEN) 30 00:00: the skin [place] mg/mL AtIn 00 every 8 Medica l (eight) Branch weeks. benralizuma 3-0 Yes [id number] 30mg inject 1 [facility] (FASENRA 1-24 Pen under ity of PEN) 30 00:00: the skin [place] mg/mL AtIn 00 every 8 Medica l (eight) Branch weeks. benralizuma 3-0 Yes [id number] 30mg inject 1 [facility] (FASENRA 1-24 Pen under ity of PEN) 30 00:00: the skin [place] mg/mL AtIn 00 every 8 Medica l (eight) Branch weeks. benralizuma 3-0 Yes [id number] 30mg inject 1 [facility] (FASENRA 1-24 Pen under ity of PEN) 30 00:00: the skin [place] mg/mL AtIn 00 every 8 Medica l (eight) Branch weeks. benralizuma 3-0 Yes [id number] 30mg inject 1 [facility] (FASENRA 1-24 Pen under ity of PEN) 30 00:00: the skin [place] mg/mL AtIn 00 every 8 Medica l (eight) Branch weeks. benralizuma 3-0 Yes [id number] 30mg inject 1 [facility] (FASENRA 1-24 Pen under ity of PEN) 30 00:00: the skin [place] mg/mL AtIn 00 every 8 Medica l (eight) Branch weeks. benralizuma 2023-0 Yes [id number] 30mg inject 1 [facility] (FASENRA 1-24 Pen under ity of PEN) 30 00:00: the skin [place] mg/mL AtIn 00 every 8 Medica l (eight) Branch weeks. benralizuma 2023-0 Yes [id number] 30mg inject 1 [facility] (FASENRA 1-24 Pen under ity of PEN) 30 00:00: the skin [place] mg/mL AtIn 00 every 8 Medica l (eight) Branch weeks. benralizuma 2023-0 Yes [id number] 30mg inject 1 [facility] (FASENRA 1-24 Pen under ity of PEN) 30 00:00: the skin [place] mg/mL AtIn 00 every 8 Medica l (eight) Branch weeks. benralizuma 2023-0 Yes [id number] 30mg inject 1 [facility] (FASENRA 1-24 Pen under ity of PEN) 30 00:00: the skin [place] mg/mL AtIn 00 every 8 Medica l (eight) Branch weeks. benralizuma 2023-0 Yes [id number] 30mg inject 1 [facility] (FASENRA 1-24 Pen under ity of PEN) 30 00:00: the skin [place] mg/mL AtIn 00 every 8 Medica l (eight) Branch weeks. benralizuma 2023-0 Yes [id number] 30mg inject 1 [facility] (FASENRA 1-24 Pen under ity of PEN) 30 00:00: the skin [place] mg/mL AtIn 00 every 8 Medica l (eight) Branch weeks. benralizuma 2023-0 Yes [id number] 30mg inject 1 [facility] (FASENRA 1-24 Pen under ity of PEN) 30 00:00: the skin [place] mg/mL AtIn 00 every 8 Medica l (eight) Branch weeks. benralizuma 2023-0 Yes [id number] 30mg inject 1 [facility] (FASENRA 1-24 Pen under ity of PEN) 30 00:00: the skin [place] mg/mL AtIn 00 every 8 Medica l (eight) Branch weeks. benralizuma 2023-0 Yes [id number] 30mg inject 1 [facility] (FASENRA 1-24 Pen under ity of PEN) 30 00:00: the skin [place] mg/mL AtIn 00 every 8 Medica l (eight) Branch weeks. benralizuma 2023-0 Yes [id number] 30mg inject 1 [facility] (FASENRA 1-24 Pen under ity of PEN) 30 00:00: the skin [place] mg/mL AtIn 00 every 8 Medica l (eight) Branch weeks. benralizuma 2023-0 Yes [id number] 30mg inject 1 [facility] (FASENRA 1-24 Pen under ity of PEN) 30 00:00: the skin [place] mg/mL AtIn 00 every 8 Medica l (eight) Branch weeks. benralizuma 2022-0 Yes [id number] 30mg inject 1 [facility] (FASENRA 1-24 Pen under ity of PEN) 30 00:00: the skin [place] mg/mL AtIn 00 every 8 Medica l (eight) Branch weeks. benralizuma 2022-0 Yes [id number] 30mg inject 1 [facility] (FASENRA 1-24 Pen under ity of PEN) 30 00:00: the skin [place] mg/mL AtIn 00 every 8 Medica l (eight) Branch weeks. benralizuma 2022-0 Yes [id number] 30mg inject 1 [facility] (FASENRA 1-24 Pen under ity of PEN) 30 00:00: the skin [place] mg/mL AtIn 00 every 8 Medica l (eight) Branch weeks. benralizuma 0 Yes [id number] 30mg inject 1 [facility] (FASENRA 1-24 Pen under ity of PEN) 30 00:00: the skin [place] mg/mL AtIn 00 every 8 Medica l (eight) Branch weeks. benralizuma 2022-0 Yes [id number] 30mg inject 1 [facility] (FASENRA 1-24 Pen under ity of PEN) 30 00:00: the skin [place] mg/mL AtIn 00 every 8 Medica l (eight) Branch weeks. benralizuma 2022- No [id number] 30mg inject 1 [facility] (FASENRA 1-24 08-08 Pen under ity of PEN) 30 00:00: 00:00 the skin [place] mg/mL AtIn 00 :00 every 8 Medica l (eight) Branch weeks. benralizuma 2022- No [id number] 30mg inject 1 [facility] (FASENRA 1-24 08-08 Pen under ity of PEN) 30 00:00: 00:00 the skin [place] mg/mL AtIn 00 :00 every 8 Medica l (eight) Branch weeks. benralizuma 0 2022- No [id number] 30mg inject 1 [facility] (FASENRA 1-24 08-08 Pen under ity of PEN) 30 00:00: 00:00 the skin [place] mg/mL AtIn 00 :00 every 8 Medica l (eight) Branch weeks. benkelsieizuma 2022- No [id number] 30mg inject 1 [facility] (FASENRA 08-11 Pen under ity of PEN) 30 00:00: 00:00 the skin [place] mg/mL AtIn 00 :00 every 8 Medica l (eight) Branch weeks. VRAYLAR 3 0 Yes 3mg Take 3 mg [facility] mg Cap 1-07 by mouth ity of 00:00: at [place] [address] bedtime. Medical Branch VRAYLAR 3 0 Yes 3mg Take 3 mg [facility] mg Cap 1-07 by mouth ity of 00:00: at [place] [address] bedtime. Medical Branch VRAYLAR 3 0 Yes 3mg Take 3 mg [facility] mg Cap 1-07 by mouth ity of 00:00: at [place] [address] bedtime. Medical Branch VRAYLAR 3 0 Yes 3mg Take 3 mg [facility] mg Cap 1-07 by mouth ity of 00:00: at [place] [address] bedtime. Medical Branch VRAYLAR 3 0 Yes 3mg Take 3 mg [facility] mg Cap 1-07 by mouth ity of 00:00: at [place] [address] bedtime. Medical Branch VRAYLAR 3 0 Yes 3mg Take 3 mg [facility] mg Cap 1-07 by mouth ity of 00:00: at [place] [address] bedtime. Medical Branch VRAYLAR 3 0 Yes 3mg Take 3 mg [facility] mg Cap 1-07 by mouth ity of 00:00: at [place] [address] bedtime. Medical Branch VRAYLAR 3 0 Yes 3mg Take 3 mg [facility] mg Cap 1-07 by mouth ity of 00:00: at [place] [address] bedtime. Medical Branch VRAYLAR 3 0 Yes 3mg Take 3 mg [facility] mg Cap 1-07 by mouth ity of 00:00: at [place] [address] bedtime. Medical Branch VRAYLAR 3 0 Yes 3mg Take 3 mg [facility] mg Cap 1-07 by mouth ity of 00:00: at [place] [address] bedtime. Medical Branch VRAYLAR 3 Yes 3mg Take 3 mg [facility] mg Cap 1-07 by mouth ity of 00:00: at [place] [address] bedtime. Medical Branch VRAYLAR 3 0 Yes 3mg Take 3 mg [facility] mg Cap 1-07 by mouth ity of 00:00: at [place] [address] bedtime. Medical Branch VRAYLAR 3 0 Yes 3mg Take 3 mg [facility] mg Cap 1-07 by mouth ity of 00:00: at [place] [address] bedtime. Medical Branch VRAYLAR 3 0 Yes 3mg Take 3 mg [facility] mg Cap 1-07 by mouth ity of 00:00: at [place] [address] bedtime. Medical Branch VRAYLAR 3 0 Yes 3mg Take 3 mg [facility] mg Cap 1-07 by mouth ity of 00:00: at [place] [address] bedtime. Medical Branch VRAYLAR 3 0 Yes 3mg Take 3 mg [facility] mg Cap 1-07 by mouth ity of 00:00: at [place] [address] bedtime. Medical Branch VRAYLAR 3 0 Yes 3mg Take 3 mg [facility] mg Cap 1-07 by mouth ity of 00:00: at [place] [address] bedtime. Medical Branch VRAYLAR 3 0 Yes 3mg Take 3 mg [facility] mg Cap 1-07 by mouth ity of 00:00: at [place] [address] bedtime. Medical Branch VRAYLAR 3 Yes 3mg Take 3 mg [facility] mg Cap 1-07 by mouth ity of 00:00: at [place] [address] bedtime. Medical Branch VRAYLAR 3 0 Yes 3mg Take 3 mg [facility] mg Cap 1-07 by mouth ity of 00:00: at [place] [address] bedtime. Medical Branch VRAYLAR 3 0 Yes 3mg Take 3 mg [facility] mg Cap 1-07 by mouth ity of 00:00: at [place] [address] bedtime. Medical Branch VRAYLAR 3 0 Yes 3mg Take 3 mg [facility] mg Cap 1-07 by mouth ity of 00:00: at [place] [address] bedtime. Medical Branch VRAYLAR 3 0 Yes 3mg Take 3 mg [facility] mg Cap 1-07 by mouth ity of 00:00: at [place] [address] bedtime. Medical Branch VRAYLAR 3 0 Yes 3mg Take 3 mg [facility] mg Cap 1-07 by mouth ity of 00:00: at [place] [address] bedtime. Medical Branch VRAYLAR 3 0 Yes 3mg Take 3 mg [facility] mg Cap 1-07 by mouth ity of 00:00: at [place] [address] bedtime. Medical Branch VRAYLAR 3 0 Yes 3mg Take 3 mg [facility] mg Cap 1-07 by mouth ity of 00:00: at [place] [address] bedtime. Medical Branch VRAYLAR 3 0 Yes 3mg Take 3 mg [facility] mg Cap 1-07 by mouth ity of 00:00: at [place] [address] bedtime. Medical Branch VRAYLAR 3 0 Yes 3mg Take 3 mg [facility] mg Cap 1-07 by mouth ity of 00:00: at [place] [address] bedtime. Medical Branch VRAYLAR 3 0 Yes 3mg Take 3 mg [facility] mg Cap 1-07 by mouth ity of 00:00: at [place] [address] bedtime. Medical Branch VRAYLAR 3 0 Yes 3mg Take 3 mg [facility] mg Cap 1-07 by mouth ity of 00:00: at [place] [address] bedtime. Medical Branch VRAYLAR 3 0 Yes 3mg Take 3 mg [facility] mg Cap 1-07 by mouth ity of 00:00: at [place] [address] bedtime. Medical Branch VRAYLAR 3 0 Yes 3mg Take 3 mg [facility] mg Cap 1-07 by mouth ity of 00:00: at [place] [address] bedtime. Medical Branch VRAYLAR 3 0 Yes 3mg Take 3 mg [facility] mg Cap 1-07 by mouth ity of 00:00: at [place] [address] bedtime. Medical Branch VRAYLAR 3 0 Yes 3mg Take 3 mg [facility] mg Cap 1-07 by mouth ity of 00:00: at [place] [address] bedtime. Medical Branch VRAYLAR 3 0 Yes 3mg Take 3 mg [facility] mg Cap 1-07 by mouth ity of 00:00: at [place] [address] bedtime. Medical Branch VRAYLAR 3 0 Yes 3mg Take 3 mg [facility] mg Cap 1-07 by mouth ity of 00:00: at [place] [address] bedtime. Medical Branch VRAYLAR 3 0 Yes 3mg Take 3 mg [facility] mg Cap 1-07 by mouth ity of 00:00: at [place] [address] bedtime. Medical Branch VRAYLAR 3 0 Yes 3mg Take 3 mg [facility] mg Cap 1-07 by mouth ity of 00:00: at [place] [address] bedtime. Medical Branch VRAYLAR 3 0 Yes 3mg Take 3 mg [facility] mg Cap 1-07 by mouth ity of 00:00: at [place] [address] bedtime. Medical Branch VRAYLAR 3 0 Yes 3mg Take 3 mg [facility] mg Cap 1-07 by mouth ity of 00:00: at [place] [address] bedtime. Medical Branch VRAYLAR 3 0 Yes 3mg Take 3 mg [facility] mg Cap 1-07 by mouth ity of 00:00: at [place] [address] bedtime. Medical Branch VRAYLAR 3 Yes 3mg Take 3 mg [facility] mg Cap 1-07 by mouth ity of 00:00: at [place] [address] bedtime. Medical Branch VRAYLAR 3 Yes 3mg Take 3 mg [facility] mg Cap 1-07 by mouth ity of 00:00: at [place] [address] bedtime. Medical Branch VRAYLAR 3 0 Yes 3mg Take 3 mg [facility] mg Cap 1-07 by mouth ity of 00:00: at [place] [address] bedtime. Medical Branch VRAYLAR 3 0 Yes 3mg Take 3 mg [facility] mg Cap 1-07 by mouth ity of 00:00: at [place] [address] bedtime. Medical Branch VRAYLAR 3 0 Yes 3mg Take 3 mg [facility] mg Cap 1-07 by mouth ity of 00:00: at [place] [address] bedtime. Medical Branch VRAYLAR 3 0 Yes 3mg Take 3 mg [facility] mg Cap 1-07 by mouth ity of 00:00: at [place] [address] bedtime. Medical Branch VRAYLAR 3 0 Yes 3mg Take 3 mg [facility] mg Cap 1-07 by mouth ity of 00:00: at [place] [address] bedtime. Medical Branch VRAYLAR 3 0 Yes 3mg Take 3 mg [facility] mg Cap 1-07 by mouth ity of 00:00: at [place] [address] bedtime. Medical Branch VRAYLAR 3 0 Yes 3mg Take 3 mg [facility] mg Cap 1-07 by mouth ity of 00:00: at [place] [address] bedtime. Medical Branch VRAYLAR 3 0 Yes 3mg Take 3 mg [facility] mg Cap 1-07 by mouth ity of 00:00: at [place] [address] bedtime. Medical Branch VRAYLAR 3 0 Yes 3mg Take 3 mg [facility] mg Cap 1-07 by mouth ity of 00:00: at [place] [address] bedtime. Medical Branch VRAYLAR 3 0 Yes 3mg Take 3 mg [facility] mg Cap 1-07 by mouth ity of 00:00: at [place] [address] bedtime. Medical Branch VRAYLAR 3 0 Yes 3mg Take 3 mg [facility] mg Cap 1-07 by mouth ity of 00:00: at [place] [address] bedtime. Medical Branch VRAYLAR 3 0 Yes 3mg Take 3 mg [facility] mg Cap 1-07 by mouth ity of 00:00: at [place] [address] bedtime. Medical Branch VRAYLAR 3 0 Yes 3mg Take 3 mg [facility] mg Cap 1-07 by mouth ity of 00:00: at [place] [address] bedtime. Medical Branch VRAYLAR 3 Yes 3mg Take 3 mg [facility] mg Cap 1-07 by mouth ity of 00:00: at [place] [address] bedtime. Medical Branch VRAYLAR 3 0 Yes 3mg Take 3 mg [facility] mg Cap 1-07 by mouth ity of 00:00: at [place] [address] bedtime. Medical Branch VRAYLAR 3 0 Yes 3mg Take 3 mg [facility] mg Cap 1-07 by mouth ity of 00:00: at [place] [address] bedtime. Medical Branch VRAYLAR 3 0 Yes 3mg Take 3 mg [facility] mg Cap 1-07 by mouth ity of 00:00: at [place] [address] bedtime. Medical Branch VRAYLAR 3 0 Yes 3mg Take 3 mg [facility] mg Cap 1-07 by mouth ity of 00:00: at [place] [address] bedtime. Medical Branch VRAYLAR 3 0 Yes 3mg Take 3 mg [facility] mg Cap 1-07 by mouth ity of 00:00: at [place] [address] bedtime. Medical Branch VRAYLAR 3 Yes 3mg Take 3 mg [facility] mg Cap 1-07 by mouth ity of 00:00: at [place] [address] bedtime. Medical Branch VRAYLAR 3 Yes 3mg Take 3 mg [facility] mg Cap 1-07 by mouth ity of 00:00: at [place] [address] bedtime. Medical Branch VRLAR 3 Yes 3mg Take 3 mg [facility] mg Cap 1-07 by mouth ity of 00:00: at [place] [address] bedtime. Medical Branch VRAYLAR 3 Yes 3mg Take 3 mg [facility] mg Cap 1-07 by mouth ity of 00:00: at [place] [address] bedtime. Medical Branch VRAYLAR 3 Yes 3mg Take 3 mg [facility] mg Cap 1-07 by mouth ity of 00:00: at [place] [address] bedtime. Medical Branch [facility] 3 Yes 3mg Take 3 mg [facility] vers mg Cap 1-07 by mouth ity of 00:00: at [place] [address] bedtime. Medical Branch VRAYLAR 3 Yes 3mg Take 3 mg [facility] vers mg Cap 1-07 by mouth ity of 00:00: at [place] [address] bedtime. [facility] 3 Yes 3mg Take 3 mg [facility] mg Cap 1-07 by mouth ity of 00:00: at [place] [address] bedtime. Medical Branch [facility] 3 Yes 3mg Take 3 mg [facility] mg Cap 1-07 by mouth ity of 00:00: at [place] [address] bedtime. Medical Branch VRAYLAR 3 0 2022- No 3mg Take 3 mg [place] mg Cap -01 21-05 by mouth ity of 00:00: 00:00 at [place] 00 :00 bedtime. Medical Branch VRAYLAR 3 2022-0 2022- No 3mg Take 3 mg [place] mg Cap -01 21-05 by mouth ity of 00:00: 00:00 at [place] 00 :00 bedtime. Medical Branch VRAYLAR 3 2022-0 2022- No 3mg Take 3 mg [place] mg Cap 1-01 21-05 by mouth ity of 00:00: 00:00 at [place] 00 :00 bedtime. Medical Branch levalbutero 2021-07 Yes [id number] INHALE 2 [facility] (XOPENEX 2-29 PUFFS BY ity o f HFA) 45 00:00: MOUTH [place] mcg/actuati 00 EVERY 6 Medic al on inhaler HOURS Branc h NEEDED BEFORE EXERCISE OR FOR WHEEZING/S HORTNESS OF BREATH. levalbutero 2021-07 Yes [id number] INHALE 2 [facility] (XOPENEX 2-29 PUFFS BY ity o f HFA) 45 00:00: MOUTH [place] mcg/actuati 00 EVERY 6 Medic al on inhaler HOURS Branc h NEEDED BEFORE EXERCISE OR FOR WHEEZING/S HORTNESS OF BREATH. levalbutero 2021-07 Yes [id number] INHALE 2 [facility] (XOPENEX 2-29 PUFFS BY ity o f HFA) 45 00:00: MOUTH [place] mcg/actuati 00 EVERY 6 Medic al on inhaler HOURS Branc h NEEDED BEFORE EXERCISE OR FOR WHEEZING/S HORTNESS OF BREATH. levalbutero 2021-07 Yes [id number] INHALE 2 [facility] (XOPENEX 2-29 PUFFS BY ity o f HFA) 45 00:00: MOUTH [place] mcg/actuati 00 EVERY 6 Medic al on inhaler HOURS Branc h NEEDED BEFORE EXERCISE OR FOR WHEEZING/S HORTNESS OF BREATH. levalbutero 2021-07 Yes [id number] INHALE 2 [facility] (XOPENEX 2-29 PUFFS BY ity o f HFA) 45 00:00: MOUTH [place] mcg/actuati 00 EVERY 6 Medic al on inhaler HOURS Branc h NEEDED BEFORE EXERCISE OR FOR WHEEZING/S HORTNESS OF BREATH. levalbutero 2021-07 Yes [id number] INHALE 2 [facility] (XOPENEX 2-29 PUFFS BY ity o f HFA) 45 00:00: MOUTH [place] mcg/actuati 00 EVERY 6 Medic al on inhaler HOURS Branc h NEEDED BEFORE EXERCISE OR FOR WHEEZING/S HORTNESS OF BREATH. levalbutero 2021-07 Yes [id number] INHALE 2 [facility] (XOPENEX 2-29 PUFFS BY ity o f HFA) 45 00:00: MOUTH [place] mcg/actuati 00 EVERY 6 Medic al on inhaler HOURS Branc h NEEDED BEFORE EXERCISE OR FOR WHEEZING/S HORTNESS OF BREATH. levalbutero 2021-07 Yes [id number] INHALE 2 [facility] (XOPENEX 2-29 PUFFS BY ity o f HFA) 45 00:00: MOUTH [place] mcg/actuati 00 EVERY 6 Medic al on inhaler HOURS Branc h NEEDED BEFORE EXERCISE OR FOR WHEEZING/S HORTNESS OF BREATH. levalbutero 2021-07 Yes [id number] INHALE 2 [facility] (XOPENEX 2-29 PUFFS BY ity o f HFA) 45 00:00: MOUTH [place] mcg/actuati 00 EVERY 6 Medic al on inhaler HOURS Branc h NEEDED BEFORE EXERCISE OR FOR WHEEZING/S HORTNESS OF BREATH. levalbutero 2021-07 Yes [id number] INHALE 2 [facility] (XOPENEX 2-29 PUFFS BY ity o f HFA) 45 00:00: MOUTH [place] mcg/actuati 00 EVERY 6 Medic al on inhaler HOURS Branc h NEEDED BEFORE EXERCISE OR FOR WHEEZING/S HORTNESS OF BREATH. levalbutero 2021-07- No [id number] INHALE 2 [facility] (XOPENEX 2-29 -31 PUFFS BY ity of HFA) 45 00:00: 00:00 MOUTH [place] mcg/actuati 00 :00 EVERY 6 Medic al on inhaler HOURS Branc h NEEDED BEFORE EXERCISE OR FOR WHEEZING/S HORTNESS OF BREATH. levalbutero 2021-07- No [id number] INHALE 2 [facility] (XOPENEX 2-29 31 PUFFS BY ity of HFA) 45 00:00: 00:00 MOUTH [place] mcg/actuati 00 :00 EVERY 6 Medic al on inhaler HOURS Branc h NEEDED BEFORE EXERCISE OR FOR WHEEZING/S HORTNESS OF BREATH. levalbutero 2021-07- No [id number] INHALE 2 [facility] (XOPENEX 2-29 -31 PUFFS BY ity of HFA) 45 00:00: 00:00 MOUTH [place] mcg/actuati 00 :00 EVERY 6 Medic al on inhaler HOURS Branc h NEEDED BEFORE EXERCISE OR FOR WHEEZING/S HORTNESS OF BREATH. ibuprofen 2021-07 Yes [id number] 800mg Take 1 [facility] 800 mg 2-25 tablet by ity of tablet 00:00: mouth [place] 00 every 8 Medical (eight) Branch hours as needed for Pain (scale 4-6) or Temp > 38.5 C. benzonatate 2021-07 Yes [id number] 200mg Take 1 [facility] 200 mg 2-25 capsule by ity of capsule 00:00: mouth 3 [place] 00 (three) Medical times Branch daily as needed for Cough. ibuprofen 2021-07 Yes [id number] 800mg Take 1 [facility] 800 mg 2-25 tablet by ity of tablet 00:00: mouth [place] 00 every 8 Medical (eight) Branch hours as needed for Pain (scale 4-6) or Temp > 38.5 C. benzonatate 2021-07 Yes [id number] 200mg Take 1 [facility] 200 mg 2-25 capsule by ity of capsule 00:00: mouth 3 (three) Medical times Branch daily as needed for Cough. ibuprofen 2021-07 Yes [id number] 800mg Take 1 [facility] 800 mg 2-25 tablet by ity of tablet 00:00: mouth [place] 00 every 8 Medical (eight) Branch hours as needed for Pain (scale 4-6) or Temp > 38.5 C. benzonatate 2021-07 Yes [id number] 200mg Take 1 [facility] 200 mg 2-25 capsule by ity of capsule 00:00: mouth 3 00 (three) Medical times Branch daily as needed for Cough. ibuprofen 2021-07 Yes [id number] 800mg Take 1 [facility] 800 mg 2-25 tablet by ity of tablet 00:00: mouth [place] 00 every 8 Medical (eight) Branch hours as needed for Pain (scale 4-6) or Temp > 38.5 C. benzonatate 2021-07 Yes [id number] 200mg Take 1 [facility] 200 mg 2-25 capsule by ity of capsule 00:00: mouth 3 [place] 00 (three) Medical times Branch daily as needed for Cough. ibuprofen 2021-07 Yes [id number] 800mg Take 1 [facility] 800 mg 2-25 tablet by ity of tablet 00:00: mouth [place] 00 every 8 Medical (eight) Branch hours as needed for Pain (scale 4-6) or Temp > 38.5 C. benzonatate 2021-07 Yes [id number] 200mg Take 1 [facility] 200 mg 2-25 capsule by ity of capsule 00:00: mouth 3 (three) Medical times Branch daily as needed for Cough. ibuprofen 2021-07 Yes [id number] 800mg Take 1 [facility] 800 mg 2-25 tablet by ity of tablet 00:00: mouth [place] 00 every 8 Medical (eight) Branch hours as needed for Pain (scale 4-6) or Temp > 38.5 C. benzonatate 2021-07 Yes [id number] 200mg Take 1 [facility] 200 mg 2-25 capsule by ity of capsule 00:00: mouth (three) Medical times Branch daily as needed for Cough. ibuprofen 2021-07 Yes [id number] 800mg Take 1 [facility] 800 mg 2-25 tablet by ity of tablet 00:00: mouth [place] 00 every 8 Medical (eight) Branch hours as needed for Pain (scale 4-6) or Temp > 38.5 C. benzonatate 2021-07 Yes [id number] 200mg Take 1 [facility] 200 mg 2-25 capsule by ity of capsule 00:00: mouth (three) Medical times Branch daily as needed for Cough. ibuprofen 2021-07 Yes [id number] 800mg Take 1 [facility] 800 mg 2-25 tablet by ity of tablet 00:00: mouth [place] 00 every 8 Medical (eight) Branch hours as needed for Pain (scale 4-6) or Temp > 38.5 C. benzonatate 2021-07 Yes [id number] 200mg Take 1 [facility] 200 mg 2-25 capsule by ity of capsule 00:00: mouth (three) Medical times Branch daily as needed for Cough. ibuprofen 2021-07 Yes [id number] 800mg Take 1 [facility] 800 mg 2-25 tablet by ity of tablet 00:00: mouth [place] 00 every 8 Medical (eight) Branch hours as needed for Pain (scale 4-6) or Temp > 38.5 C. benzonatate 2021-07 Yes [id number] 200mg Take 1 [facility] 200 mg 2-25 capsule by ity of capsule 00:00: mouth 3 (three) Medical times Branch daily as needed for Cough. ibuprofen 2021-07 Yes [id number] 800mg Take 1 [facility] 800 mg 2-25 tablet by ity of tablet 00:00: mouth [place] 00 every 8 Medical (eight) Branch hours as needed for Pain (scale 4-6) or Temp > 38.5 C. benzonatate 2021-07 Yes [id number] 200mg Take 1 [facility] 200 mg 2-25 capsule by ity of capsule 00:00: mouth 3 (three) Medical times Branch daily as needed for Cough. ibuprofen 2021-07 Yes [id number] 800mg Take 1 [facility] 800 mg 2-25 tablet by ity of tablet 00:00: mouth [place] every 8 Medical (eight) Branch hours as needed for Pain (scale 4-6) or Temp > 38.5 C. benzonatate 2021-07 Yes [id number] 200mg Take 1 [facility] 200 mg 2-25 capsule by ity of capsule 00:00: mouth 3 (three) Medical times Branch daily as needed for Cough. ibuprofen 2021-07 Yes [id number] 800mg Take 1 [facility] 800 mg 2-25 tablet by ity of tablet 00:00: mouth every 8 Medical (eight) Branch hours as needed for Pain (scale 4-6) or Temp > 38.5 C. benzonatate 2021-07 Yes [id number] 200mg Take 1 [facility] 200 mg 2-25 capsule by ity of capsule 00:00: mouth 3 (three) Medical times Branch daily as needed for Cough. ibuprofen 2021-07 Yes [id number] 800mg Take 1 [facility] 800 mg 2-25 tablet by ity of tablet 00:00: mouth every 8 Medical (eight) Branch hours as needed for Pain (scale 4-6) or Temp > 38.5 C. ibuprofen 2021-07 Yes [id number] 800mg Take 1 [facility] 800 mg 2-25 tablet by ity of tablet 00:00: mouth [place] 00 every 8 Medical (eight) Branch hours as needed for Pain (scale 4-6) or Temp > 38.5 C. ibuprofen 2021-07 Yes [id number] 800mg Take 1 [facility] 800 mg 2-25 tablet by ity of tablet 00:00: mouth [place] 00 every 8 Medical (eight) Branch hours as needed for Pain (scale 4-6) or Temp > 38.5 C. ibuprofen 2021-07 Yes [id number] 800mg Take 1 [facility] 800 mg 2-25 tablet by ity of tablet 00:00: mouth [place] 00 every 8 Medical (eight) Branch hours as needed for Pain (scale 4-6) or Temp > 38.5 C. ibuprofen 2021-07 Yes [id number] 800mg Take 1 [facility] 800 mg 2-25 tablet by ity of tablet 00:00: mouth [place] 00 every 8 Medical (eight) Branch hours as needed for Pain (scale 4-6) or Temp > 38.5 C. ibuprofen 2021-07 Yes [id number] 800mg Take 1 [facility] 800 mg 2-25 tablet by ity of tablet 00:00: mouth [place] 00 every 8 Medical (eight) Branch hours as needed for Pain (scale 4-6) or Temp > 38.5 C. ibuprofen 2021-07 Yes [id number] 800mg Take 1 [facility] 800 mg 2-25 tablet by ity of tablet 00:00: mouth [place] 00 every 8 Medical (eight) Branch hours as needed for Pain (scale 4-6) or Temp > 38.5 C. ibuprofen 2021-07 Yes [id number] 800mg Take 1 [facility] 800 mg 2-25 tablet by ity of tablet 00:00: mouth [place] 00 every 8 Medical (eight) Branch hours as needed for Pain (scale 4-6) or Temp > 38.5 C. ibuprofen 2021-07 Yes [id number] 800mg Take 1 [facility] 800 mg 2-25 tablet by ity of tablet 00:00: mouth [place] 00 every 8 Medical (eight) Branch hours as needed for Pain (scale 4-6) or Temp > 38.5 C. ibuprofen 2021-07 Yes [id number] 800mg Take 1 [facility] 800 mg 2-25 tablet by ity of tablet 00:00: mouth [place] 00 every 8 Medical (eight) Branch hours as needed for Pain (scale 4-6) or Temp > 38.5 C. ibuprofen 2021-07 Yes [id number] 800mg Take 1 [facility] 800 mg 2-25 tablet by ity of tablet 00:00: mouth [place] 00 every 8 Medical (eight) Branch hours as needed for Pain (scale 4-6) or Temp > 38.5 C. ibuprofen 2021-07 Yes [id number] 800mg Take 1 [facility] 800 mg 2-25 tablet by ity of tablet 00:00: mouth [place] 00 every 8 Medical (eight) Branch hours as needed for Pain (scale 4-6) or Temp > 38.5 C. ibuprofen 2021-07 Yes [id number] 800mg Take 1 [facility] 800 mg 2-25 tablet by ity of tablet 00:00: mouth [place] 00 every 8 Medical (eight) Branch hours as needed for Pain (scale 4-6) or Temp > 38.5 C. ibuprofen 2021-07 Yes [id number] 800mg Take 1 [facility] 800 mg 2-25 tablet by ity of tablet 00:00: mouth [place] 00 every 8 Medical (eight) Branch hours as needed for Pain (scale 4-6) or Temp > 38.5 C. ibuprofen 2021-07 Yes [id number] 800mg Take 1 [facility] 800 mg 2-25 tablet by ity of tablet 00:00: mouth [place] 00 every 8 Medical (eight) Branch hours as needed for Pain (scale 4-6) or Temp > 38.5 C. ibuprofen 2021-07 Yes [id number] 800mg Take 1 [facility] 800 mg 2-25 tablet by ity of tablet 00:00: mouth [place] 00 every 8 Medical (eight) Branch hours as needed for Pain (scale 4-6) or Temp > 38.5 C. ibuprofen 2021-07 Yes [id number] 800mg Take 1 [facility] 800 mg 2-25 tablet by ity of tablet 00:00: mouth [place] 00 every 8 Medical (eight) Branch hours as needed for Pain (scale 4-6) or Temp > 38.5 C. ibuprofen 2021-07 Yes [id number] 800mg Take 1 [facility] 800 mg 2-25 tablet by ity of tablet 00:00: mouth [place] 00 every 8 Medical (eight) Branch hours as needed for Pain (scale 4-6) or Temp > 38.5 C. ibuprofen 2021-07 Yes [id number] 800mg Take 1 [facility] 800 mg 2-25 tablet by ity of tablet 00:00: mouth [place] 00 every 8 Medical (eight) Branch hours as needed for Pain (scale 4-6) or Temp > 38.5 C. ibuprofen 2021-07 Yes [id number] 800mg Take 1 [facility] 800 mg 2-25 tablet by ity of tablet 00:00: mouth [place] 00 every 8 Medical (eight) Branch hours as needed for Pain (scale 4-6) or Temp > 38.5 C. ibuprofen 2021-07 Yes [id number] 800mg Take 1 [facility] 800 mg 2-25 tablet by ity of tablet 00:00: mouth [place] 00 every 8 Medical (eight) Branch hours as needed for Pain (scale 4-6) or Temp > 38.5 C. ibuprofen 2021-07 Yes [id number] 800mg Take 1 [facility] 800 mg 2-25 tablet by ity of tablet 00:00: mouth [place] 00 every 8 Medical (eight) Branch hours as needed for Pain (scale 4-6) or Temp > 38.5 C. ibuprofen 2021-07 Yes [id number] 800mg Take 1 [facility] 800 mg 2-25 tablet by ity of tablet 00:00: mouth [place] 00 every 8 Medical (eight) Branch hours as needed for Pain (scale 4-6) or Temp > 38.5 C. ibuprofen 2021-07 Yes [id number] 800mg Take 1 [facility] 800 mg 2-25 tablet by ity of tablet 00:00: mouth [place] 00 every 8 Medical (eight) Branch hours as needed for Pain (scale 4-6) or Temp > 38.5 C. ibuprofen 2021-07 Yes [id number] 800mg Take 1 [facility] 800 mg 2-25 tablet by ity of tablet 00:00: mouth [place] 00 every 8 Medical (eight) Branch hours as needed for Pain (scale 4-6) or Temp > 38.5 C. ibuprofen 2021-07 Yes [id number] 800mg Take 1 [facility] 800 mg 2-25 tablet by ity of tablet 00:00: mouth [place] 00 every 8 Medical (eight) Branch hours as needed for Pain (scale 4-6) or Temp > 38.5 C. ibuprofen 2021-07 Yes [id number] 800mg Take 1 [facility] 800 mg 2-25 tablet by ity of tablet 00:00: mouth [place] 00 every 8 Medical (eight) Branch hours as needed for Pain (scale 4-6) or Temp > 38.5 C. ibuprofen 2021-07 Yes [id number] 800mg Take 1 [facility] 800 mg 2-25 tablet by ity of tablet 00:00: mouth [place] 00 every 8 Medical (eight) Branch hours as needed for Pain (scale 4-6) or Temp > 38.5 C. ibuprofen 2021-07 Yes [id number] 800mg Take 1 [facility] 800 mg 2-25 tablet by ity of tablet 00:00: mouth [place] 00 every 8 Medical (eight) Branch hours as needed for Pain (scale 4-6) or Temp > 38.5 C. ibuprofen 2021-07 Yes [id number] 800mg Take 1 [facility] 800 mg 2-25 tablet by ity of tablet 00:00: mouth [place] 00 every 8 Medical (eight) Branch hours as needed for Pain (scale 4-6) or Temp > 38.5 C. ibuprofen 2021-07 Yes [id number] 800mg Take 1 [facility] 800 mg 2-25 tablet by ity of tablet 00:00: mouth [place] 00 every 8 Medical (eight) Branch hours as needed for Pain (scale 4-6) or Temp > 38.5 C. ibuprofen 2021-07 Yes [id number] 800mg Take 1 [facility] 800 mg 2-25 tablet by ity of tablet 00:00: mouth [place] 00 every 8 Medical (eight) Branch hours as needed for Pain (scale 4-6) or Temp > 38.5 C. ibuprofen 2021-07 Yes [id number] 800mg Take 1 [facility] 800 mg 2-25 tablet by ity of tablet 00:00: mouth [place] every 8 Medical (eight) Branch hours as needed for Pain (scale 4-6) or Temp > 38.5 C. ibuprofen 2021-07- No [id number] 800mg Take 1 [facility] 800 mg 2-25 04-11 tablet by ity of tablet 00:00: 00:00 [facility] 00 :00 every 8 Medical (eight) Branch hours as needed for Pain (scale 4-6) or Temp > 38.5 C. benzonatate 2021-07- No [id number] 200mg Take 1 [facility] 200 mg 2-25 -31 capsule by ity of capsule 00:00: 00:00 mouth 3 [place] 00 :00 (three) Medical times Branch daily as needed for Cough. benzonatate 2021-07- No [id number] 200mg Take 1 [facility] 200 mg 2-25 -31 capsule by ity of capsule 00:00: 00:00 mouth 3 [place] 00 :00 (three) Medical times Branch daily as needed for Cough. benzonatate 2021-07- No [id number] 200mg Take 1 [facility] 200 mg 2-25 -31 capsule by ity of capsule 00:00: 00:00 mouth 3 [place] 00 :00 (three) Medical times Branch daily as needed for Cough. dexamethaso 2021-07 Yes [id number] 12mg Take 120 [facility] ne 0.1 2-22 mL by ity of mg/mL LOW 00:00: mouth [place] [facility] 00 the Medical ON solution morning. [facility] justin dexamethaso 2021-07 Yes [id number] 12mg Take 120 [facility] ne 0.1 2-22 mL by ity of mg/mL LOW 00:00: mouth [place] 00 the Medical ON solution morning. [place] dexamethaso 2021-07 Yes [id number] 12mg Take 120 [facility] ne 0.1 2-22 mL by ity of mg/mL LOW 00:00: mouth [place] 00 the Medical ON solution morning. [facility] dexamethaso 2021-07 Yes [id number] 12mg Take 120 [facility] ne 0.1 2-22 mL by ity of mg/mL LOW 00:00: mouth [place] [facility] 00 the Medical ON solution morning. [facility] dexamethaso 2021-07 Yes [id number] 12mg Take 120 [facility] ne 0.1 2-22 mL by ity of mg/mL LOW 00:00: mouth [place] 00 the Medical ON solution morning. [facility] dexamethaso 2021-07 Yes [id number] 12mg Take 120 [facility] ne 0.1 2-22 mL by ity of mg/mL LOW 00:00: mouth [place] 00 the Medical ON solution morning. [facility] dexamethaso 2021-07 Yes [id number] 12mg Take 120 [facility] ne 0.1 2-22 mL by ity of mg/mL LOW 00:00: mouth [place] 00 the Medical ON solution morning. [facility] dexamethaso 2021-07 Yes [id number] 12mg Take 120 [facility] ne 0.1 2-22 mL by ity of mg/mL LOW 00:00: mouth [place] 00 the Medical ON solution morning. [place] [facility] dexamethaso 2021-07 Yes [id number] 12mg Take 120 [facility] ne 0.1 2-22 mL by ity of mg/mL LOW 00:00: mouth [place] 00 the Medical ON solution morning. [place] dexamethaso 2021-07 Yes [id number] 12mg Take 120 [facility] ne 0.1 2-22 mL by ity of mg/mL LOW 00:00: mouth [place] 00 the Medical ON solution morning. [facility] dexamethaso 2021-07 Yes [id number] 12mg Take 120 [facility] ne 0.1 2-22 mL by ity of mg/mL LOW 00:00: mouth [place] 00 the Medical ON solution morning. [facility] dexamethaso 2021-07 Yes [id number] 12mg Take 120 [facility] ne 0.1 2-22 mL by ity of mg/mL LOW 00:00: mouth [place] 00 the Medical ON solution morning. [facility] dexamethdanielleo 2021-07 Yes [id number] 12mg Take 120 [facility] ne 0.1 2-22 mL by ity of mg/mL LOW 00:00: mouth [place] [facility] 00 the Medical ON solution morning. [facility] dexamethdanielleo 2021-07- No [id number] 12mg Take 120 [facility] ne 0.1 2-22 01-31 mL by ity of mg/mL LOW 00:00: 00:00 mouth in [place] as CONCENTRATI 00 :00 the Medical ON solution morning. [facility]od[facility] dexamethaso 2021-07- No [id number] 12mg Take 120 [facility] ne 0.1 2-22 01-31 mL by ity of mg/mL LOW 00:00: 00:00 mouth in [place] as CONCENTRATI 00 :00 the Medical ON solution morning. Volodym[facility] and[facility] dexamethaso 2021-07- No [id number] 12mg Take 120 [facility] ne 0.1 2-22 01-31 mL by ity of mg/mL LOW 00:00: 00:00 mouth in [place] as CONCENTRATI 00 :00 the Medical ON solution morning. [facility] ARIPiprazol 2021-07 Yes by Univer s e (ABILIFY 2-[address] [facility]) 09:02: lar route [place] as 300 mg sers 43 once every Me dical month. Branch ARIPiprazol 2021-07 Yes by Univer s e (ABILIFY 2-[address] [facility]) 09:02: lar route [place] as 300 mg [...] Me dical month. Branch budesonide- 2021-07 Yes [id number] 2{puff} Inhale 2 Univers formoteroL 2-05 Puffs in ity o f (SYMBICORT) 00:00: the [place] 160-4.5 00 morning Medical mcg/actuati and 2 Branch on inhaler Puffs in the evening. tiotropium 2021-07 Yes [id number] 1{puff} Inhale 1 [facility] bromide 2-05 Puff ity of (SPIRIVA 00:00: daily. [place] RESPIMAT) 00 Medical 2.5 Branch mcg/actuati on Mist budesonide- 2021-07 Yes [id number] 2{puff} Inhale 2 Univers formoteroL 2-05 Puffs in ity o f (SYMBICORT) 00:00: the [place] 160-4.5 00 morning Medical mcg/actuati and 2 Branch on inhaler Puffs in the evening. tiotropium 2021-07 Yes [id number] 1{puff} Inhale 1 [facility] bromide 2-05 Puff ity of (SPIRIVA 00:00: daily. [place] RESPIMAT) 00 Medical 2.5 Branch mcg/actuati on Mist budesonide- 2021-07 Yes [id number] 2{puff} Inhale 2 Univers formoteroL 2-05 Puffs in ity o f (SYMBICORT) 00:00: the [place] 160-4.5 00 morning Medical mcg/actuati and 2 Branch on inhaler Puffs in the evening. tiotropium 2021-07 Yes [id number] 1{puff} Inhale 1 [facility] bromide 2-05 Puff ity of (SPIRIVA 00:00: daily. [place] RESPIMAT) 00 Medical 2.5 Branch mcg/actuati on Mist budesonide- 2021-07 Yes [id number] 2{puff} Inhale 2 Univers formoteroL 2-05 Puffs in ity o f (SYMBICORT) 00:00: the [place] 160-4.5 00 morning Medical mcg/actuati and 2 Branch on inhaler Puffs in the evening. tiotropium 2021-07 Yes [id number] 1{puff} Inhale 1 [facility] bromide 2-05 Puff ity of (SPIRIVA 00:00: daily. [place] RESPIMAT) 00 Medical 2.5 Branch mcg/actuati on Mist budesonide- 2021-07 Yes [id number] 2{puff} Inhale 2 [facility] formoteroL 2-05 Puffs in ity o f (SYMBICORT) 00:00: the [place] 160-4.5 00 morning Medical mcg/actuati and 2 Branch on inhaler Puffs in the evening. tiotropium 2021-07 Yes [id number] 1{puff} Inhale 1 [facility] bromide 2-05 Puff ity of (SPIRIVA 00:00: daily. [place] RESPIMAT) 00 Medical 2.5 Branch mcg/actuati on Mist budesonide- 2021-07 Yes [id number] 2{puff} Inhale 2 Univers formoteroL 2-05 Puffs in ity o f (SYMBICORT) 00:00: the [place] 160-4.5 00 morning Medical mcg/actuati and 2 Branch on inhaler Puffs in the evening. tiotropium 2021-07 Yes [id number] 1{puff} Inhale 1 [facility] bromide 2-05 Puff ity of (SPIRIVA 00:00: daily. [place] RESPIMAT) 00 Medical 2.5 Branch mcg/actuati on Mist budesonide- 2021-07 Yes [id number] 2{puff} Inhale 2 [facility] formoteroL 2-05 Puffs in ity o f (SYMBICORT) 00:00: the [place] 160-4.5 00 morning Medical mcg/actuati and 2 Branch on inhaler Puffs in the evening. tiotropium 2021-07 Yes [id number] 1{puff} Inhale 1 [facility] bromide 2-05 Puff ity of (SPIRIVA 00:00: daily. [place] RESPIMAT) 00 Medical 2.5 Branch mcg/actuati on Mist budesonide- 2021-07 Yes [id number] 2{puff} Inhale 2 [facility] formoteroL 2-05 Puffs in ity o f (SYMBICORT) 00:00: the [place] 160-4.5 00 morning Medical mcg/actuati and 2 Branch on inhaler Puffs in the evening. tiotropium 2021-07 Yes [id number] 1{puff} Inhale 1 [facility] bromide 2-05 Puff ity of (SPIRIVA 00:00: daily. [place] RESPIMAT) 00 Medical 2.5 Branch mcg/actuati on Mist budesonide- 2021-07 Yes [id number] 2{puff} Inhale 2 Univers formoteroL 2-05 Puffs in ity o f (SYMBICORT) 00:00: the [place] 160-4.5 00 morning Medical mcg/actuati and 2 Branch on inhaler Puffs in the evening. tiotropium 2021-07 Yes [id number] 1{puff} Inhale 1 [facility] bromide 2-05 Puff ity of (SPIRIVA 00:00: daily. [place] RESPIMAT) 00 Medical 2.5 Branch mcg/actuati on Mist budesonide- 2021-07 Yes [id number] 2{puff} Inhale 2 Univers formoteroL 2-05 Puffs in ity o f (SYMBICORT) 00:00: the [place] 160-4.5 00 morning Medical mcg/actuati and 2 Branch on inhaler Puffs in the evening. tiotropium 2021-07 Yes [id number] 1{puff} Inhale 1 [facility] bromide 2-05 Puff ity of (SPIRIVA 00:00: daily. [place] RESPIMAT) 00 Medical 2.5 Branch mcg/actuati on Mist budesonide- 2021-07 Yes [id number] 2{puff} Inhale 2 [facility] formoteroL 2-05 Puffs in ity o f (SYMBICORT) 00:00: the [place] 160-4.5 00 morning Medical mcg/actuati and 2 Branch on inhaler Puffs in the evening. tiotropium 2021-07 Yes [id number] 1{puff} Inhale 1 [facility] bromide 2-05 Puff ity of (SPIRIVA 00:00: daily. [place] RESPIMAT) 00 Medical 2.5 Branch mcg/actuati on Mist budesonide- 2021-07 Yes [id number] 2{puff} Inhale 2 [facility] formoteroL 2-05 Puffs in ity o f (SYMBICORT) 00:00: the [place] 160-4.5 00 morning Medical mcg/actuati and 2 Branch on inhaler Puffs in the evening. tiotropium 2021-07 Yes [id number] 1{puff} Inhale 1 [facility] bromide 2-05 Puff ity of (SPIRIVA 00:00: daily. [place] RESPIMAT) 00 Medical 2.5 Branch mcg/actuati on Mist budesonide- 2021-07 Yes [id number] 2{puff} Inhale 2 [facility] formoteroL 2-05 Puffs in ity of (SYMBICORT) 00:00: the [place] 160-4.5 00 morning Medical mcg/actuati and 2 Branch on inhaler Puffs in the evening. tiotropium 2021-07 Yes [id number] 1{puff} Inhale 1 [facility] bromide 2-05 Puff ity of (SPIRIVA 00:00: daily. [place] RESPIMAT) 00 Medical 2.5 Branch mcg/actuati on Mist budesonide- 2021-07 Yes [id number] 2{puff} Inhale 2 [facility] formoteroL 2-05 Puffs in ity o f (SYMBICORT) 00:00: the [place] 160-4.5 00 morning Medical mcg/actuati and 2 Branch on inhaler Puffs in the evening. tiotropium 2021-07 Yes [id number] 1{puff} Inhale 1 [facility] bromide 2-05 Puff ity of (SPIRIVA 00:00: daily. [place] RESPIMAT) 00 Medical 2.5 Branch mcg/actuati on Mist budesonide- 2021-07 Yes [id number] 2{puff} Inhale 2 [facility] formoteroL 2-05 Puffs in ity o f (SYMBICORT) 00:00: the [place] 160-4.5 00 morning Medical mcg/actuati and 2 Branch on inhaler Puffs in the evening. tiotropium 2021-07 Yes [id number] 1{puff} Inhale 1 [facility] bromide 2-05 Puff ity of (SPIRIVA 00:00: daily. [place] RESPIMAT) 00 Medical 2.5 Branch mcg/actuati on Mist budesonide- 2021-07 Yes [id number] 2{puff} Inhale 2 Univers formoteroL 2-05 Puffs in ity o f (SYMBICORT) 00:00: the [place] 160-4.5 00 morning Medical mcg/actuati and 2 Branch on inhaler Puffs in the evening. tiotropium 2021-07 Yes [id number] 1{puff} Inhale 1 [facility] bromide 2-05 Puff ity of (SPIRIVA 00:00: daily. [place] RESPIMAT) 00 Medical 2.5 Branch mcg/actuati on Mist budesonide- 2021-07 Yes [id number] 2{puff} Inhale 2 Univers formoteroL 2-05 Puffs in ity o f (SYMBICORT) 00:00: the [place] 160-4.5 00 morning Medical mcg/actuati and 2 Branch on inhaler Puffs in the evening. tiotropium 2021-07 Yes [id number] 1{puff} Inhale 1 [facility] bromide 2-05 Puff ity of (SPIRIVA 00:00: daily. [place] RESPIMAT) 00 Medical 2.5 Branch mcg/actuati on Mist budesonide- 2021-07 Yes [id number] 2{puff} Inhale 2 Univers formoteroL 2-05 Puffs in ity o f (SYMBICORT) 00:00: the [place] 160-4.5 00 morning Medical mcg/actuati and 2 Branch on inhaler Puffs in the evening. tiotropium 2021-07 Yes [id number] 1{puff} Inhale 1 [facility] bromide 2-05 Puff ity of (SPIRIVA 00:00: daily. [place] RESPIMAT) 00 Medical 2.5 Branch mcg/actuati on Mist budesonide- 2021-07 Yes [id number] 2{puff} Inhale 2 Univers formoteroL 2-05 Puffs in ity o f (SYMBICORT) 00:00: the [place] 160-4.5 00 morning Medical mcg/actuati and 2 Branch on inhaler Puffs in the evening. tiotropium 2021-07 Yes [id number] 1{puff} Inhale 1 [facility] bromide 2-05 Puff ity of (SPIRIVA 00:00: daily. [place] RESPIMAT) 00 Medical 2.5 Branch mcg/actuati on [place] methocarbam 2021-07 Yes TAKE 1 Univ ers oL 750 mg 2-05 TABLET BY ity o f tablet 00:00: MOUTH [place] 00 EVERY DAY Medical NEEDED Branch budesonide- 2021-07 Yes [id number] 2{puff} Inhale 2 Univers formoteroL 2-05 Puffs in ity o f (SYMBICORT) 00:00: the [place] 160-4.5 00 morning Medical mcg/actuati and 2 Branch on inhaler Puffs in the evening. tiotropium 2021-07 Yes [id number] 1{puff} Inhale 1 [facility] bromide 2-05 Puff ity of (SPIRIVA 00:00: daily. [place] RESPIMAT) 00 Medical 2.5 Branch mcg/actuati on Mist methocarbam 2021-07 Yes TAKE 1 Univ ers oL 750 mg 2-05 TABLET BY ity o f tablet 00:00: MOUTH [place] 00 EVERY DAY Medical NEEDED Branch budesonide- 2021-07 Yes [id number] 2{puff} Inhale 2 Univers formoteroL 2-05 Puffs in ity o f (SYMBICORT) 00:00: the [place] 160-4.5 00 morning Medical mcg/actuati and 2 Branch on inhaler Puffs in the evening. tiotropium 2021-07 Yes [id number] 1{puff} Inhale 1 [facility] bromide 2-05 Puff ity of (SPIRIVA 00:00: daily. [place] RESPIMAT) 00 Medical 2.5 Branch mcg/actuati on Mist methocarbam 2021-07 Yes TAKE 1 Univ ers oL 750 mg 2-05 TABLET BY ity o f tablet 00:00: MOUTH [place] 00 EVERY DAY Medical NEEDED Branch budesonide- 2021-07 Yes [id number] 2{puff} Inhale 2 Univers formoteroL 2-05 Puffs in ity o f (SYMBICORT) 00:00: the [place] 160-4.5 00 morning Medical mcg/actuati and 2 Branch on inhaler Puffs in the evening. tiotropium 2021-07 Yes [id number] 1{puff} Inhale 1 [facility] bromide 2-05 Puff ity of (SPIRIVA 00:00: daily. [place] RESPIMAT) 00 Medical 2.5 Branch mcg/actuati on Mist methocarbam 2021-07 Yes TAKE 1 Univ ers oL 750 mg 2-05 TABLET BY ity o f tablet 00:00: MOUTH [place] 00 EVERY DAY Medical NEEDED Branch budesonide- 2021-07 Yes [id number] 2{puff} Inhale 2 [facility] formoteroL 2-05 Puffs in ity o f (SYMBICORT) 00:00: the [place] 160-4.5 00 morning Medical mcg/actuati and 2 Branch on inhaler Puffs in the evening. tiotropium 2021-07 Yes [id number] 1{puff} Inhale 1 [facility] bromide 2-05 Puff ity of (SPIRIVA 00:00: daily. [place] RESPIMAT) 00 Medical 2.5 Branch mcg/actuati on Mist budesonide- 2021-07 Yes [id number] 2{puff} Inhale 2 [facility] formoteroL 2-05 Puffs in ity o f (SYMBICORT) 00:00: the [place] 160-4.5 00 morning Medical mcg/actuati and 2 Branch on inhaler Puffs in the evening. tiotropium 2021-07 Yes [id number] 1{puff} Inhale 1 [facility] bromide 2-05 Puff ity of (SPIRIVA 00:00: daily. [place] RESPIMAT) 00 Medical 2.5 Branch mcg/actuati on Mist budesonide- 2021-07 Yes [id number] 2{puff} Inhale 2 [facility] formoteroL 2-05 Puffs in ity o f (SYMBICORT) 00:00: the [place] 160-4.5 00 morning Medical mcg/actuati and 2 Branch on inhaler Puffs in the evening. tiotropium 2021-07 Yes [id number] 1{puff} Inhale 1 [facility] bromide 2-05 Puff ity of (SPIRIVA 00:00: daily. [place] RESPIMAT) 00 Medical 2.5 Branch mcg/actuati on Mist budesonide- 2021-07 Yes [id number] 2{puff} Inhale 2 [facility] formoteroL 2-05 Puffs in ity o f (SYMBICORT) 00:00: the [place] 160-4.5 00 morning Medical mcg/actuati and 2 Branch on inhaler Puffs in the evening. tiotropium 2021-07 Yes [id number] 1{puff} Inhale 1 [facility] bromide 2-05 Puff ity of (SPIRIVA 00:00: daily. [place] RESPIMAT) 00 Medical 2.5 Branch mcg/actuati on Mist methocarbam 2021-07 Yes TAKE 1 [facility] ers oL 750 mg 2-05 TABLET BY ity o f tablet 00:00: MOUTH [place] 00 EVERY DAY Medical NEEDED Branch budesonide- 2021-07 Yes [id number] 2{puff} Inhale 2 [facility] formoteroL 2-05 Puffs in ity o f (SYMBICORT) 00:00: the [place] 160-4.5 00 morning Medical mcg/actuati and 2 Branch on inhaler Puffs in the evening. tiotropium 2021-07 Yes [id number] 1{puff} Inhale 1 [facility] bromide 2-05 Puff ity of (SPIRIVA 00:00: daily. [place] RESPIMAT) 00 Medical 2.5 Branch mcg/actuati on Mist methocarbam 2021-07 Yes TAKE 1 [facility] ers oL 750 mg 2-05 TABLET BY ity o f tablet 00:00: MOUTH [place] 00 EVERY DAY Medical NEEDED Branch budesonide- 2021-07 Yes [id number] 2{puff} Inhale 2 [facility] formoteroL 2-05 Puffs in ity o f (SYMBICORT) 00:00: the [place] 160-4.5 00 morning Medical mcg/actuati and 2 Branch on inhaler Puffs in the evening. tiotropium 2021-07 Yes [id number] 1{puff} Inhale 1 [facility] bromide 2-05 Puff ity of (SPIRIVA 00:00: daily. [place] RESPIMAT) 00 Medical 2.5 Branch mcg/actuati on Mist methocarbam 2021-07 Yes TAKE 1 [facility] ers oL 750 mg 2-05 TABLET BY ity o f tablet 00:00: MOUTH [place] 00 EVERY DAY Medical NEEDED Branch budesonide- 2021-07 Yes [id number] 2{puff} Inhale 2 [facility] formoteroL 2-05 Puffs in ity o f (SYMBICORT) 00:00: the [place] 160-4.5 00 morning Medical mcg/actuati and 2 Branch on inhaler Puffs in the evening. tiotropium 2021-07 Yes [id number] 1{puff} Inhale 1 [facility] bromide 2-05 Puff ity of (SPIRIVA 00:00: daily. [place] RESPIMAT) 00 Medical 2.5 Branch mcg/actuati on Mist methocarbam 2021-07 Yes TAKE 1 Univ ers oL 750 mg 2-05 TABLET BY ity o f tablet 00:00: MOUTH [place] 00 EVERY DAY Medical NEEDED Branch budesonide- 2021-07 Yes [id number] 2{puff} Inhale 2 [facility] formoteroL 2-05 Puffs in ity o f (SYMBICORT) 00:00: the [place] 160-4.5 00 morning Medical mcg/actuati and 2 Branch on inhaler Puffs in the evening. tiotropium 2021-07 Yes [id number] 1{puff} Inhale 1 [facility] bromide 2-05 Puff ity of (SPIRIVA 00:00: daily. [place] RESPIMAT) 00 Medical 2.5 Branch mcg/actuati on Mist methocarbam 2021-07 Yes TAKE 1 [facility] ers oL 750 mg 2-05 TABLET BY ity o f tablet 00:00: MOUTH [place] 00 EVERY DAY Medical NEEDED Branch budesonide- 2021-07 Yes [id number] 2{puff} Inhale 2 [facility] formoteroL 2-05 Puffs in ity o f (SYMBICORT) 00:00: the [place] 160-4.5 00 morning Medical mcg/actuati and 2 Branch on inhaler Puffs in the evening. tiotropium 2021-07 Yes [id number] 1{puff} Inhale 1 [facility] bromide 2-05 Puff ity of (SPIRIVA 00:00: daily. [place] RESPIMAT) 00 Medical 2.5 Branch mcg/actuati on [place] methocarbam 2021-07 Yes TAKE 1 [facility] ers oL 750 mg 2-05 TABLET BY ity o f tablet 00:00: MOUTH [place] 00 EVERY DAY Medical NEEDED Branch budesonide- 2021-07 Yes [id number] 2{puff} Inhale 2 [facility] formoteroL 2-05 Puffs in ity o f (SYMBICORT) 00:00: the [place] 160-4.5 00 morning Medical mcg/actuati and 2 Branch on inhaler Puffs in the evening. tiotropium 2021-07 Yes [id number] 1{puff} Inhale 1 [facility] bromide 2-05 Puff ity of (SPIRIVA 00:00: daily. [place] RESPIMAT) 00 Medical 2.5 Branch mcg/actuati on Mist methocarbam 2021-07 Yes TAKE 1 [facility] ers oL 750 mg 2-05 TABLET BY ity o f tablet 00:00: MOUTH [place] 00 EVERY DAY Medical NEEDED Branch budesonide- 2021-07 Yes [id number] 2{puff} Inhale 2 [facility] formoteroL 2-05 Puffs in ity o f (SYMBICORT) 00:00: the [place] 160-4.5 00 morning Medical mcg/actuati and 2 Branch on inhaler Puffs in the evening. tiotropium 2021-07 Yes [id number] 1{puff} Inhale 1 [facility] bromide 2-05 Puff ity of (SPIRIVA 00:00: daily. [place] RESPIMAT) 00 Medical 2.5 Branch mcg/actuati on Mist methocarbam 2021-07 Yes TAKE 1 [facility] ers oL 750 mg 2-05 TABLET BY ity o f tablet 00:00: MOUTH [place] 00 EVERY DAY Medical NEEDED Branch budesonide- 2021-07 Yes [id number] 2{puff} Inhale 2 [facility] formoteroL 2-05 Puffs in ity o f (SYMBICORT) 00:00: the [place] 160-4.5 00 morning Medical mcg/actuati and 2 Branch on inhaler Puffs in the evening. tiotropium 2021-07 Yes [id number] 1{puff} Inhale 1 [facility] bromide 2-05 Puff ity of (SPIRIVA 00:00: daily. [place] RESPIMAT) 00 Medical 2.5 Branch mcg/actuati on Mist budesonide- 2021-07 Yes [id number] 2{puff} Inhale 2 [facility] formoteroL 2-05 Puffs in ity o f (SYMBICORT) 00:00: the [place] 160-4.5 00 morning Medical mcg/actuati and 2 Branch on inhaler Puffs in the evening. tiotropium 2021-07 Yes [id number] 1{puff} Inhale 1 [facility] bromide 2-05 Puff ity of (SPIRIVA 00:00: daily. [place] RESPIMAT) 00 Medical 2.5 Branch mcg/actuati on Mist methocarbam 2021-07 Yes TAKE 1 [facility] ers oL 750 mg 2-05 TABLET BY ity o f tablet 00:00: MOUTH [place] 00 EVERY DAY Medical NEEDED Branch methocarbam 2021-07 Yes TAKE 1 [facility] ers oL 750 mg 2-05 TABLET BY ity o f tablet 00:00: [facility] 00 EVERY DAY Medical NEEDED Branch methocarbam 2021-07 Yes TAKE 1 [facility] ers oL 750 mg 2-05 TABLET BY ity o f tablet 00:00: [facility] 00 EVERY DAY Medical NEEDED Branch methocarbam 2021-07 Yes TAKE 1 Univ ers oL 750 mg 2-05 TABLET BY ity o f tablet 00:00: [facility] 00 EVERY DAY Medical NEEDED Branch methocarbam 2021-07 Yes TAKE 1 [facility] ers oL 750 mg 2-05 TABLET BY ity o f tablet 00:00: [facility] 00 EVERY DAY Medical NEEDED Branch methocarbam 2021-07 Yes TAKE 1 [facility] ers oL 750 mg 2-05 TABLET BY ity o f tablet 00:00: [facility] 00 EVERY DAY Medical NEEDED Branch methocarbam 2021-07 Yes TAKE 1 [facility] ers oL 750 mg 2-05 TABLET BY ity o f tablet 00:00: [facility] 00 EVERY DAY Medical NEEDED Branch [...] 00 EVERY DAY Medical NEEDED Branch methocarbam 2022-1 Yes TAKE 1 Univ ers oL 750 [...] BY ity o f tablet 00:00: MOUTH [place] 00 EVERY DAY Medical NEEDED Branch methocarbam 2021-07 Yes TAKE 1 [facility] ers oL 750 mg 2-05 TABLET BY ity o f tablet 00:00: MOUTH [place] 00 EVERY DAY Medical NEEDED Branch methocarbam 2021-07 Yes TAKE 1 [facility] ers oL 750 mg 2-05 TABLET BY ity o f tablet 00:00: MOUTH [place] 00 EVERY DAY Medical NEEDED Branch methocarbam 2021-07 Yes TAKE 1 [facility] ers oL 750 mg 2-05 TABLET BY ity o f tablet 00:00: MOUTH [place] 00 EVERY DAY Medical NEEDED Branch methocarbam 2021-07 Yes TAKE 1 [facility] ers oL 750 mg 2-05 TABLET BY ity o f tablet 00:00: MOUTH [place] 00 EVERY DAY Medical NEEDED Branch methocarbam 2021-07 Yes TAKE 1 [facility] ers oL 750 mg 2-05 TABLET BY ity o f tablet 00:00: MOUTH [place] 00 EVERY DAY Medical NEEDED Branch methocarbam 2021-07 Yes TAKE 1 [facility] ers oL 750 mg 2-05 TABLET BY ity o f tablet 00:00: MOUTH [place] 00 EVERY DAY Medical NEEDED Branch budesonide- 2021-07- No [id number] 2{puff} Inhale 2 [facility] formoteroL 2-05 03-20 Puffs in ity of (SYMBICORT) 00:00: 00:00 [facility] 160-4.5 00 :00 morning Medical mcg/actuati and 2 Branch on inhaler Puffs in the evening. tiotropium 2021-07- No [id number] 1{puff} Inhale 1 [facility] bromide 2-05 03-20 Puff ity of (SPIRIVA 00:00: 00:00 daily. [place] RESPIMAT) 00 :00 Medical 2.5 Branch mcg/actuati on Mist budesonide- 2021-07- No [id number] 2{puff} Inhale 2 [facility] formoteroL 2-05 03-20 Puffs in ity of (SYMBICORT) 00:00: 00:00 the [place] 160-4.5 00 :00 morning Medical mcg/actuati and 2 Branch on inhaler Puffs in the evening. tiotropium 2021-07- No [id number] 1{puff} Inhale 1 [facility] bromide 2-05 03-20 Puff ity of (SPIRIVA 00:00: 00:00 daily. [place] RESPIMAT) 00 :00 Medical 2.5 Branch mcg/actuati on Mist budesonide- 2021-07- No [id number] 2{puff} Inhale 2 [facility] formoteroL 2-05 03-20 Puffs in ity of (SYMBICORT) 00:00: 00:00 the [place] 160-4.5 00 :00 morning Medical mcg/actuati and 2 Branch on inhaler Puffs in the evening. tiotropium 2021-07- No [id number] 1{puff} Inhale 1 [facility] bromide 2-05 03-20 Puff ity of (SPIRIVA 00:00: 00:00 daily. [place] RESPIMAT) 00 :00 Medical 2.5 Branch mcg/actuati on Mist budesonide- 2021-07- No [id number] 2{puff} Inhale 2 [facility] formoteroL 2-05 03-20 Puffs in ity of (SYMBICORT) 00:00: 00:00 the [place] 160-4.5 00 :00 morning Medical mcg/actuati and 2 Branch on inhaler Puffs in the evening. tiotropium 2021-07- No [id number] 1{puff} Inhale 1 [facility] bromide 2-05 03-20 Puff ity of (SPIRIVA 00:00: 00:00 daily. [place] RESPIMAT) 00 :00 Medical 2.5 Branch mcg/actuati on Mist budesonide- 2021-07- No [id number] 2{puff} Inhale 2 [facility] formoteroL 2-05 03-20 Puffs in ity of (SYMBICORT) 00:00: 00:00 the [place] 160-4.5 00 :00 morning Medical mcg/actuati and 2 Branch on inhaler Puffs in the evening. tiotropium 2021-07- No [id number] 1{puff} Inhale 1 [facility] bromide 2-05 03-20 Puff ity of (SPIRIVA 00:00: 00:00 daily. [place] RESPIMAT) 00 :00 Medical 2.5 Branch mcg/actuati on Mist azithromyci 2021-07- No 500mg 500 mg, IV Univers n 2-04 12-04 Piggyback, ity of (ZITHROMAX) 09:00: 10:05 [...] THIERRY solution 3 mL azithromyci 2021-07- No [id number] Take 42 mL Univers n 100 mg/5 08-22-10 by mouth ity of mL 00:00: 05:59 every 24 [place] suspension 00 :00 (twenty-fo Med ical ur) hours Branch AND 21 mL daily. Do all this for 5 days. azithromyci 2021-07- No [id number] Take 42 mL Univers n 100 mg/5 08-22-10 by mouth ity of mL 00:00: 05:59 every 24 [place] suspension 00 :00 (twenty-fo Med ical ur) hours Branch AND 21 mL daily. Do all this for 5 days. azithromyci 2021-07- No [id number] Take 42 mL Univers n 100 mg/5 08-22-10 by mouth ity of mL 00:00: 05:59 every 24 [place] suspension 00 :00 (twenty-fo Med ical ur) hours Branch AND 21 mL daily. Do all this for 5 days. azithromyci 2021-07- No [id number] Take 42 mL Univers n 100 mg/5 08-22 by mouth ity of mL 00:00: 05:59 every 24 [place] suspension 00 :00 (twenty-fo Med ical ur) hours Branch AND 21 mL daily. Do all this for 5 days. azithromyci 2021-07- No [id number] Take 42 mL Univers n 100 mg/5 08-22 by mouth ity of mL 00:00: 05:59 every 24 [place] suspension 00 :00 (twenty-fo Med ical ur) hours Branch AND 21 mL daily. Do all this for 5 days. azithromyci 2021-07- No [id number] Take 42 mL Univers n 100 mg/5 08-22 by mouth ity of mL 00:00: 05:59 every 24 [place] suspension 00 :00 (twenty-fo Med ical ur) hours Branch AND 21 mL daily. Do all this for 5 days. dexamethaso 2021-07- No [id number] 8mg Take 80 mL Univers ne 0.1 08-22 by mouth ity of mg/mL LOW 00:00: 05:59 once now [place] as [facility] 00 :00 for 1 Medical ON solution dose. Branch doxycycline 2021-07- No [id number] 100mg Take 20 mL Univers monohydrate 08-22 by mouth ity of 25 mg/5 mL 00:00: 00:00 every 12 [place] oral 00 :00 (twelve) Medical suspension hours. Branch iopamidol 2021-07- No [id number] 75mL 75 mL, Univers (ISOVUE 08-16 Intravenou [...] 00 :00 dose, On Medical mg(2.5 mg e Branch base)/3 mL 06/16/22 nebulizer at 1630, [...] it y of nebulizer 14:00: , TID, [place] solution 00 First dose Medic al 1.25 mg on Wed Branch 05/29/22 at 0800, Until Discontinu ed, Routine methylpredn 2021-07 Yes 125mg 125 mg, Un [place] isolone sod 07-29 Intravenou it y of succ 06:00: s, Q6H, [place] (SOLU-MEDRO 00 First dose Me dical L) on Wed Branch injection 05/29/22 125 mg at 0000, Until Discontinu ed, Routine codeine-gua 2021-07 No 20mL 20 mL, Uni vers ifenesin 07-29 Oral, ity of (ROBITUSSIN 04:58: 04:59 ONCE, 1 [place] AC[place] 10100 00 :00 dose, On Medic al mg/5 mL Maisha Branch oral 05/28/22 solution 20 at 2300, mL THIERRY NaCl 0.9% 2021-07 No 2000mL at 999 [...] l 3 mg (6) [address] [facility] risperiDONE 2021-0 Yes .25mg Q.5D Take [...] l 3 mg (6) [address] [facility] risperiDONE 2021-0 Yes .25mg Q.5D Take [...] l 3 mg (6) [address] [facility] risperiDONE 2021-0 Yes .25mg Q.5D Take [...] l 3 mg (6) [address] [facility] risperiDONE 2-0 Yes .25mg Q.5D Take [...] l 3 mg (6) [address] [facility] risperiDONE 2021-0 Yes .25mg Q.5D Take [...] l 3 mg (6) [address] [facility] risperiDONE 2-0 Yes .25mg Q.5D Take [...] l 3 mg (6) [address] [facility] risperiDONE 2021-0 Yes .25mg Q.5D Take [...] l 3 mg (6) [address] [facility] risperiDONE 2021-0 Yes .25mg Q.5D Take [...] l 3 mg (6) [address] [facility] risperiDONE 2-0 Yes .25mg Q.5D Take [...] l 3 mg (6) [address] [facility] risperiDONE 2022-0 Yes .25mg Q.5D Take 0.[address] [facility] (RisperDAL) 9-21 mg by [facility] 0.25 MG 13:21: mouth 2 Medical tablet 51 (two) Center times daily. iron-multiv 2022-0 Yes 1{tbl} QD Take [address] itamins-min 9-21 tablet by Ignacio es erals 13:21: mouth Medical (THERAGRAN- 51 daily. Center ) 9 mg iron-400 mcg Tab tablet cariprazine 2-0 Yes Take by [facility] (Vraylar) 9-21 mouth. [facility] 1.5 mg (1)- 13:21: Medica l 3 mg (6) [address] [facility] risperiDONE 2022-0 Yes .25mg Q.5D Take 0.[address] [facility] (RisperDAL) 9-21 mg by [facility] 0.25 MG 13:21: mouth 2 Medical tablet 51 (two) Center times daily. iron-multiv 2022-0 Yes 1{tbl} QD Take [address] itamins-min 9-21 tablet by Ignacio es erals 13:21: mouth Medical (THERAGRAN- 51 daily. Center ) 9 mg iron-400 mcg Tab tablet lactulose [...] Medic al mg/mL) 00 Center suspension risperiDONE 2-0 Yes .5mg Q.25D Take 0.[address] (RisperDAL) 9-09 mg by [facility] 0.5 MG 00:00: mouth 4 Medical tablet 00 (four) Center times daily. Vyvanse 40 2021-0 Yes 40mg QD Take [address] mg capsule 03-27 by mouth [facility] 00:00: daily. [address] busPIRone 0 Yes 15mg QD Take [address] (BUSPAR) 15 9- by mouth Luke s MG tablet 00:00: daily. Medica [address] Yes 1mL Inject [address] [facility] 9-09 mL [facility] 300 mg sers 00:00: intramuscu Medical 00 lar. [place] diazePAM 0 Yes 2mg Q.5D Take 2 [...] capsule 03-27 by mouth [facility] 00:00: daily. [address] busPIRone 0 Yes 15mg QD Take [address] (BUSPAR) 15 9- by mouth Luke s MG tablet 00:00: daily. Medica [address] Yes 1mL Inject [address] [facility] 9-09 mL [facility] 300 mg sers 00:00: intramuscu Medical 00 lar. [place] diazePAM 2021-0 Yes 2mg Q.5D Take 2 [...] capsule 03-27 by mouth [facility] 00:00: daily. [address] busPIRone Yes 15mg QD Take [address] (BUSPAR) 15 9-09 by mouth Luke s MG tablet 00:00: daily. Medica [address] Yes 1mL Inject [address] [facility] [address] [facility] 9-09 mL [facility] 300 mg sers 00:00: intramuscu Medical 00 larly. [place] diazePAM 0 Yes 2mg Q.5D Take 2 [...] capsule 03-27 by mouth [facility] 00:00: daily. [address] busPIRone Yes 15mg QD Take [address] (BUSPAR) 15 9- by mouth Luke s MG tablet 00:00: daily. Medica [address] Yes 1mL Inject [address] [facility] [address] [facility] 9-09 mL [facility] 300 [facility] [place] diazePAM 0 Yes 2mg Q.5D Take 2 [...] capsule 9- by mouth [facility] 00:00: daily. [address] busPIRone Yes 15mg QD Take [address] (BUSPAR) 15 9-09 by mouth Luke s MG tablet 00:00: daily. Medica [address] Yes 1mL Inject [address] [facility] [address] [facility] 9-09 mL [facility] 300 mg sers 00:00: intramuscu Medical 00 larly. [place] diazePAM 0 Yes 2mg Q.5D Take 2 [...] capsule 03-27 by mouth [facility] 00:00: daily. [address] busPIRone Yes 15mg QD Take [address] (BUSPAR) 15 9- by mouth Luke s MG tablet 00:00: daily. Medica [address] Yes 1mL Inject [address] [facility] [address] [facility] 9-09 mL [facility] 300 mg sers 00:00: intramuscu Medical 00 larly. [place] diazePAM 0 Yes 2mg Q.5D Take 2 [...] capsule 03-27 by mouth [facility] 00:00: daily. [address] busPIRone 0 Yes 15mg QD Take [address] (BUSPAR) 15 - by mouth Luke s MG tablet 00:00: daily. Medica l [address] [place] [address] Yes 1mL Inject [address] [facility] 9-09 mL [facility] 300 mg sers 00:00: intramuscu Medical 00 larly. [place] diazePAM 0 Yes 2mg Q.5D Take 2 [...] capsule 9- by mouth [facility] 00:00: daily. Medical [address] [place] [address] busPIRone 2021-0 Yes 15mg QD Take [address] (BUSPAR) 15 9- by mouth Luke s MG tablet 00:00: daily. Medica l [address] [place] [address] 0 Yes 1mL Inject [address] [facility] [address] [facility] 9-09 mL [facility] 300 mg sers 00:00: intramuscu Medical 00 lar. [place] diazePAM 2021-0 Yes 2mg Q.5D Take 2 [...] capsule 03-27 by mouth [facility] 00:00: daily. [address] busPIRone 2021-0 Yes 15mg QD Take [address] (BUSPAR) 15 9-09 by mouth Luke s MG tablet 00:00: daily. Medica l [address] [place] [address] 0 Yes 1mL Inject [address] [facility] [address] [facility] 9-09 mL [facility] 300 mg sers 00:00: intramuscu Medical 00 larly. [place] diazePAM 2-0 Yes 2mg Q.5D Take 2 [...] by mouth [facility] 00:00: daily. Medical 00 [place] busPIRone 0 Yes 15mg QD Take [address] (BUSPAR) 15 9- by mouth Luke s MG tablet 00:00: daily. Medica l 00 [facility] Yes 1mL Inject [address] [facility] [address] [facility] 9-09 mL [facility] 300 mg sers 00:00: intramuscu Medical 00 larly. [place] diazePAM Yes 2mg Q.5D Take 2 mg [...] by mouth [facility] 00:00: daily. Medical 00 [place] busPIRone Yes 15mg QD Take [address] (BUSPAR) 15 03-27 by mouth Luke s MG tablet 00:00: daily. Medica l 00 [facility] Yes 1mL Inject [address] [facility] 9-09 mL [facility] 300 mg sers 00:00: intramuscu Medical 00 larly. [place] diazePAM 0 Yes 2mg Q.5D Take [address] [facility] (VALIUM) 2 - by mouth 2 Ignacio es MG tablet 00:00: (two) Medical 00 times Center daily. Dulera 2021-0 Yes 2{puff} Q.5D [address] [facility] 200-5 03-26 (two) [facility] mcg/actuati 00:00: times Medic al on inhaler 00 daily. [place] Dulera Yes 2{puff} Q.5D [address] [facility] 200-5 03-26 (two) [facility] mcg/actuati 00:00: times Medic al on inhaler 00 daily. [place] Dulera 2022-0 Yes 2{puff} Q.5D [address] [facility] 200-5 9-08 (two) [facility] mcg/actuati 00:00: times Medic al on inhaler 00 daily. [facility] Yes 2{puff} Q.5D [address] [facility] 200-5 9-08 (two) [facility] mcg/actuati 00:00: times Medic al on inhaler 00 daily. [facility] Yes 2{puff} Q.5D [address] [facility] 200-5 9-08 (two) [facility] mcg/actuati 00:00: times Medic al on inhaler 00 daily. [facility] Yes 2{puff} Q.5D [address] [facility] 200-5 9-08 (two) [facility] mcg/actuati 00:00: times Medic al on inhaler 00 daily. [facility] Yes 2{puff} Q.5D [address] [facility] 200-5 9-08 (two) [facility] mcg/actuati 00:00: times Medic al on inhaler 00 daily. [facility] Yes 2{puff} Q.5D [address] [facility] 200-5 9-08 (two) [facility] mcg/actuati 00:00: times Medic al on inhaler 00 daily. [facility] Yes 2{puff} Q.5D [address] [facility] 200-5 9-08 (two) [facility] mcg/actuati 00:00: times Medic al on inhaler 00 daily. [facility] Yes 2{puff} Q.5D [address] [facility] 200-5 9-08 (two) [facility] mcg/actuati 00:00: times Medic al on inhaler 00 daily. [facility] Yes 2{puff} Q.5D [address] [facility] 200-5 9-08 (two) [facility] mcg/actuati 00:00: times Medic al on inhaler 00 daily. [place] levalbutero Yes SMARTSIG:V [facility] (XOPENEX [...] (two) Medical 00 times Center daily. triamcinolo 2021- Yes Apply [facility]15 topically [facility] (KENALOG) 00:00: daily as Medi cherie 0.1 % 00 needed. Center topical cream hydrocortis 0 Yes Q.5D Apply [facility] one 2.5 % 8-15 topically [facility] cream 00:00: 2 (two) Medical 00 times Center daily. triamcinolo 0 Yes Apply [facility] [...] Yes .3mg 0.[address] [facility] (EpiPen 8 [facility] 2-Rory) 0.3 00:00: Medical mg/0.3 mL 00 Center AtIn EPINEPHrine 2021-0 Yes .3mg 0.[address] [facility] (EpiPen 8 [facility] 2-[facility]) 0.3 00:00: Medical mg/0.3 mL 00 Center AtIn EPINEPHrine 2021-0 Yes .3mg 0.[address] [facility] (EpiPen 8 [facility] 2-[facility]) 0.3 00:00: Medical mg/0.3 mL 00 Center AtIn EPINEPHrine 2021-0 Yes .3mg 0.[address] [facility] (EpiPen 02-17 [facility] 2-[facility]) 0.3 00:00: Medical mg/0.3 mL 00 Center AtIn EPINEPHrine 0 Yes .3mg 0.[address] [facility] (EpiPen 02-17 [facility] 2-[facility]) 0.3 00:00: Medical mg/0.3 mL 00 Center AtIn EPINEPHrine 0 Yes .3mg 0.[address] [facility] (EpiPen 02-17 [facility] 2-[facility]) 0.3 00:00: Medical mg/0.3 mL 00 Center AtIn EPINEPHrine 0 Yes .3mg 0.[address] [facility] (EpiPen 02-17 [facility] 2-[facility]) 0.3 00:00: Medical mg/0.3 mL 00 Center AtIn EPINEPHrine 2021-0 Yes .3mg 0.[address] [facility] (EpiPen 02-17 [facility] 2-[facility]) 0.3 00:00: Medical mg/0.3 mL 00 Center AtIn EPINEPHrine 0 Yes .3mg 0.[address] [facility] (EpiPen 02-17 [facility] 2-[facility]) 0.3 00:00: Medical mg/0.3 mL 00 Center AtIn EPINEPHrine 0 Yes .3mg 0.[address] [facility] (EpiPen 8 [facility] 2-[facility]) 0.3 00:00: Medical mg/0.3 mL 00 Center AtIn EPINEPHrine 2021-0 Yes .3mg 0.3 mL by U nivers 0.3 mg/0.3 02-17 Intramuscu ity of mL 00:00: lar route [place] injection 00 as needed. Medi cherie Branch EPINEPHrine 2022-0 Yes .3mg 0.3 mL by U nivers [...] 00 as needed. Medi cherie [facility] EPINEPHrine 2022-0 Yes .3mg 0.3 mL by U nivers 0.3 mg/0.3 8 Intramuscu ity of mL 00:00: lar route [place] injection 00 as needed. Medi cherie Branch EPINEPHrine Yes .3mg 0.3 mL by U nivers 0.3 mg/0.3 02-17 Intramuscu ity of mL 00:00: lar route [place] injection 00 as needed. Medi cherie Branch EPINEPHrine Yes .3mg 0.[address] [facility] (EpiPen 02-17 [facility] 2-R[facility]) 0.3 00:00: Medical mg/0.3 mL 00 [facility] Yes 1{tbl} Take [address] [facility] (Qulipta) 6-15 tablet by [facility] 60 mg Tab 00:00: mouth. Medica l [facility] Yes 1{tbl} Take [address] [facility] (Qulipta) 6-15 tablet by [facility] 60 mg Tab 00:00: mouth. Medica l [facility] Yes 1{tbl} Take [address] [facility] (Qulipta) 6-15 tablet by [facility] 60 mg Tab 00:00: mouth. Medica l [facility] Yes 1{tbl} Take [address] [facility] (Qulipta) 6-15 tablet by [facility] 60 mg Tab 00:00: mouth. Medica l 00 [facility] Yes 1{tbl} Take [address] [facility] (Qulipta) 6-15 tablet by [facility] 60 mg Tab 00:00: mouth. Medica l [facility] Yes 1{tbl} Take [address] [facility] (Qulipta) 6-15 tablet by [facility] 60 mg Tab 00:00: mouth. Medica l [facility] Yes 1{tbl} Take [address] [facility] (Qulipta) 6-15 tablet by [facility] 60 mg Tab 00:00: mouth. Medica l [facility] Yes 1{tbl} Take [address] [facility] (Qulipta) 6-15 tablet by [facility] 60 mg Tab 00:00: mouth. [facility] Yes 1{tbl} Take [address] [facility] (Qulipta) 6-15 tablet by [facility] 60 mg Tab 00:00: mouth. [facility] l 00 [facility] Yes 1{tbl} Take [address] [facility] (Qulipta) 6-15 tablet by [facility] 60 mg Tab 00:00: mouth. [facility] 00 [facility] Yes 1{tbl} [facility]15 [facility] by [facility] o f 60 mg Tab 00:00: mouth [place] 00 daily. [facility] Yes 1{tbl} Take 1 [facility] (QULIPTA) 6-15 tablet by [facility] o f 60 mg Tab 00:00: mouth [place] 00 daily. [facility] Yes 1{tbl} Take 1 [facility] (QULIPTA) 6-15 tablet by [facility] o f 60 mg Tab 00:00: mouth [place] 00 daily. [facility] Yes 1{tbl} Take 1 [facility] (QULIPTA) 6-15 tablet by [facility] o f 60 mg Tab 00:00: mouth [place] 00 daily. [facility] Yes 1{tbl} Take 1 [facility] (QULIPTA) 6-15 tablet by [facility] o f 60 mg Tab 00:00: mouth [place] 00 daily. [facility] [facility]{tbl} Take 1 [facility] (QULIPTA) 6-15 tablet by ity o f 60 mg Tab 00:00: mouth [place] 00 daily. [facility] Yes 1{tbl} Take 1 [facility] (QULIPTA) 6-15 tablet by [facility]y o f 60 mg Tab 00:00: mouth [place] 00 daily. [facility] Yes 1{tbl} Take 1 [facility] (QULIPTA) 6-15 tablet by [facility]y o f 60 mg Tab 00:00: mouth [place] 00 daily. [facility] Yes 1{tbl} Take 1 [facility] (QULIPTA) 6-15 tablet by [facility]y o f 60 mg Tab 00:00: mouth [place] 00 daily. [facility] Yes 1{tbl} Take 1 [facility] (QULIPTA) 6-15 tablet by ity o f 60 mg Tab 00:00: mouth [place] 00 daily. [facility] Yes 1{tbl} Take 1 [facility] (QULIPTA) 6-15 tablet by ity o f 60 mg Tab 00:00: mouth [place] 00 daily. [facility] Yes 1{tbl} Take 1 [facility] (QULIPTA) 6-15 tablet by [facility]y o f 60 mg Tab 00:00: mouth [place] 00 daily. [facility] Yes 1{tbl} Take 1 [facility] (QULIPTA) 6-15 tablet by [facility] o f 60 mg Tab 00:00: mouth [place] 00 daily. [facility] Yes 1{tbl} Take 1 [facility] (QULIPTA) 6-15 tablet by ity o f 60 mg Tab 00:00: mouth [place] 00 daily. [facility] Yes 1{tbl} Take 1 [facility] (QULIPTA) 6-15 tablet by [facility]y o f 60 mg Tab 00:00: mouth [place] 00 daily. [facility] Yes 1{tbl} Take 1 [facility] (QULIPTA) 6-15 tablet by [facility] o f 60 mg Tab 00:00: mouth [place] 00 daily. [facility] Yes 1{tbl} Take 1 [facility] (QULIPTA) 6-15 tablet by ity o f 60 mg Tab 00:00: mouth [place] 00 daily. [facility] Yes 1{tbl} Take 1 [facility] (QULIPTA) 6-15 tablet by ity o f 60 mg Tab 00:00: mouth [place] 00 daily. [facility] Yes 1{tbl} Take 1 [facility] (QULIPTA) 6-15 tablet by [facility]y o f 60 mg Tab 00:00: mouth [place] 00 daily. [facility] Yes 1{tbl} Take 1 [facility] (QULIPTA) 6-15 tablet by [facility] o f 60 mg Tab 00:00: mouth [place] 00 daily. [facility] Yes 1{tbl} Take 1 [facility] (QULIPTA) 6-15 tablet by [facility] o f 60 mg Tab 00:00: mouth [place] 00 daily. [facility] Yes 1{tbl} Take 1 [facility] (QULIPTA) 6-15 tablet by ity o f 60 mg Tab 00:00: mouth [place] 00 daily. [facility] Yes 1{tbl} Take 1 [facility] (QULIPTA) 6-15 tablet by [facility]y o f 60 mg Tab 00:00: mouth [place] 00 daily. [facility] Yes 1{tbl} Take 1 [facility] (QULIPTA) 6-15 tablet by [facility]y o f 60 mg Tab 00:00: mouth [place] 00 daily. [facility] Yes 1{tbl} Take 1 [facility] (QULIPTA) 6-15 tablet by [facility]y o f 60 mg Tab 00:00: mouth [place] 00 daily. [facility] Yes 1{tbl} Take 1 [facility] (QULIPTA) 6-15 tablet by [facility]y o f 60 mg Tab 00:00: mouth [place] 00 daily. [facility] Yes 1{tbl} Take 1 [facility] (QULIPTA) 6-15 tablet by [facility] o f 60 mg Tab 00:00: mouth [place] 00 daily. [facility] Yes 1{tbl} Take 1 [facility] (QULIPTA) 6-15 tablet by [facility]y o f 60 mg Tab 00:00: mouth [place] 00 daily. [facility] Yes 1{tbl} Take 1 [facility] (QULIPTA) 6-15 tablet by [facility]y o f 60 mg Tab 00:00: mouth [place] 00 daily. [facility] Yes 1{tbl} Take 1 [facility] (QULIPTA) 6-15 tablet by ity o f 60 mg Tab 00:00: mouth [place] 00 daily. [facility] Yes 1{tbl} Take 1 [facility] (QULIPTA) 6-15 tablet by ity o f 60 mg Tab 00:00: mouth [place] 00 daily. [facility] Yes 1{tbl} Take 1 [facility] (QULIPTA) 6-15 tablet by ity o f 60 mg Tab 00:00: mouth [place] 00 daily. [facility] Yes 1{tbl} Take 1 [facility] (QULIPTA) 6-15 tablet by ity o f 60 mg Tab 00:00: mouth [place] 00 daily. [facility] Yes 1{tbl} Take 1 [facility] (QULIPTA) 6-15 tablet by ity o f 60 mg Tab 00:00: mouth [place] 00 daily. [facility] Yes 1{tbl} Take 1 [facility] (QULIPTA) 6-15 tablet by ity o f 60 mg Tab 00:00: mouth [place] 00 daily. [facility] Yes 1{tbl} Take 1 [facility] (QULIPTA) 6-15 tablet by ity o f 60 mg Tab 00:00: mouth [place] 00 daily. [facility] Yes 1{tbl} Take 1 [facility] (QULIPTA) 6-15 tablet by [facility] o f 60 mg Tab 00:00: mouth [place] 00 daily. [facility] Yes 1{tbl} Take 1 [facility] (QULIPTA) 6-15 tablet by [facility] o f 60 mg Tab 00:00: mouth [place] 00 daily. [facility] Yes 1{tbl} Take 1 [facility] (QULIPTA) 6-15 tablet by ity o f 60 mg Tab 00:00: mouth [place] 00 daily. [facility] Yes 1{tbl} Take 1 [facility] (QULIPTA) 6-15 tablet by [facility]y o f 60 mg Tab 00:00: mouth [place] 00 daily. [facility] Yes 1{tbl} Take 1 [facility] (QULIPTA) 6-15 tablet by ity o f 60 mg Tab 00:00: mouth [place] 00 daily. [facility] Yes 1{tbl} Take 1 [facility] (QULIPTA) 6-15 tablet by [facility]y o f 60 mg Tab 00:00: mouth [place] 00 daily. [facility] Yes 1{tbl} Take 1 [facility] (QULIPTA) 6-15 tablet by [facility] o f 60 mg Tab 00:00: mouth [place] 00 daily. [facility] Yes 1{tbl} Take 1 [facility] (QULIPTA) 6-15 tablet by [facility] o f 60 mg Tab 00:00: mouth [place] 00 daily. [facility] Yes 1{tbl} Take 1 [facility] (QULIPTA) 6-15 tablet by [facility]y o f 60 mg Tab 00:00: mouth [place] 00 daily. [facility] Yes 1{tbl} Take 1 [facility] (QULIPTA) 6-15 tablet by [facility]y o f 60 mg Tab 00:00: mouth [place] 00 daily. [facility] Yes 1{tbl} Take 1 [facility] (QULIPTA) 6-15 tablet by [facility] o f 60 mg Tab 00:00: mouth [place] 00 daily. [facility] Yes 1{tbl} Take 1 [facility] (QULIPTA) 6-15 tablet by ity o f 60 mg Tab 00:00: mouth [place] 00 daily. [facility] Yes 1{tbl} Take 1 [facility] (QULIPTA) 6-15 tablet by [facility] o f 60 mg Tab 00:00: mouth [place] 00 daily. [facility] Yes 1{tbl} Take 1 [facility] (QULIPTA) 6-15 tablet by ity o f 60 mg Tab 00:00: mouth [place] 00 daily. [facility] Yes 1{tbl} Take 1 [facility] (QULIPTA) 6-15 tablet by [facility]y o f 60 mg Tab 00:00: mouth [place] 00 daily. [facility] Yes 1{tbl} Take 1 [facility] (QULIPTA) 6-15 tablet by ity o f 60 mg Tab 00:00: mouth [place] 00 daily. [facility] Yes 1{tbl} Take 1 [facility] (QULIPTA) 6-15 tablet by [facility]y o f 60 mg Tab 00:00: mouth [place] 00 daily. [facility] Yes 1{tbl} Take 1 [facility] (QULIPTA) 6-15 tablet by [facility]y o f 60 mg Tab 00:00: mouth [place] 00 daily. [facility] Yes 1{tbl} Take 1 [facility] (QULIPTA) 6-15 tablet by [facility]y o f 60 mg Tab 00:00: mouth [place] 00 daily. [facility] Yes 1{tbl} Take 1 [facility] (QULIPTA) 6-15 tablet by [facility]y o f 60 mg Tab 00:00: mouth [place] 00 daily. [facility] Yes 1{tbl} Take 1 [facility] (QULIPTA) 6-15 tablet by ity o f 60 mg Tab 00:00: mouth [place] 00 daily. [facility] Yes 1{tbl} Take 1 [facility] (QULIPTA) 6-15 tablet by ity o f 60 mg Tab 00:00: mouth [place] 00 daily. [facility] Yes 1{tbl} Take 1 [facility] (QULIPTA) 6-15 tablet by [facility]y o f 60 mg Tab 00:00: mouth [place] 00 daily. [facility] Yes 1{tbl} Take 1 [facility] (QULIPTA) 6-15 tablet by [facility]y o f 60 mg Tab 00:00: mouth [place] 00 daily. [facility] Yes 1{tbl} Take 1 [facility] (QULIPTA) 6-15 tablet by [facility] o f 60 mg Tab 00:00: mouth [place] 00 daily. [facility] Yes 1{tbl} Take 1 [facility] (QULIPTA) 6-15 tablet by [facility]y o f 60 mg Tab 00:00: mouth [place] 00 daily. [facility] Yes 1{tbl} Take 1 [facility] (QULIPTA) 6-15 tablet by [facility]y o f 60 mg Tab 00:00: mouth [place] 00 daily. [facility] Yes 1{tbl} Take 1 [facility] (QULIPTA) 6-15 tablet by [facility]y o f 60 mg Tab 00:00: mouth [place] 00 daily. [facility] Yes 1{tbl} Take 1 [facility] (QULIPTA) 6-15 tablet by [facility]y o f 60 mg Tab 00:00: mouth [place] 00 daily. [facility] Yes 1{tbl} Take 1 [facility] (QULIPTA) 6-15 tablet by [facility]y o f 60 mg Tab 00:00: mouth [place] 00 daily. [facility] Yes 1{tbl} Take 1 [facility] (QULIPTA) 6-15 tablet by [facility]y o f 60 mg Tab 00:00: mouth [place] 00 daily. [facility] Yes 1{tbl} Take 1 [facility] (QULIPTA) 6-15 tablet by [facility]y o f 60 mg Tab 00:00: mouth [place] 00 daily. [facility] Yes 1{tbl} Take 1 [facility] (QULIPTA) 6-15 tablet by ity o f 60 mg Tab 00:00: mouth [place] 00 daily. [facility] Yes 1{tbl} Take 1 [facility] (QULIPTA) 6-15 tablet by [facility] o f 60 mg Tab 00:00: mouth [place] 00 daily. [facility] Yes 1{tbl} Take 1 [facility] (QULIPTA) 6-15 tablet by [facility] o f 60 mg Tab 00:00: mouth [place] 00 daily. [facility] Yes 1{tbl} Take 1 [facility] (QULIPTA) 6-15 tablet by [facility] o f 60 mg Tab 00:00: mouth [place] 00 daily. [facility] Yes 1{tbl} Take 1 [facility] (QULIPTA) 6-15 tablet by [facility]y o f 60 mg Tab 00:00: mouth [place] 00 daily. [facility] Yes 1{tbl} Take 1 [facility] (QULIPTA) 6-15 tablet by [facility]y o f 60 mg Tab 00:00: mouth [place] 00 daily. [facility] Yes 1{tbl} Take 1 [facility] (QULIPTA) 6-15 tablet by [facility] o f 60 mg Tab 00:00: mouth [place] 00 daily. [facility] Yes 1{tbl} Take 1 [facility] (QULIPTA) 6-15 tablet by ity o f 60 mg Tab 00:00: mouth [place] 00 daily. [facility] Yes 1{tbl} Take 1 [facility] (QULIPTA) 6-15 tablet by [facility]y o f 60 mg Tab 00:00: mouth [place] 00 daily. [facility] Yes 1{tbl} Take 1 [facility] (QULIPTA) 6-15 tablet by [facility]y o f 60 mg Tab 00:00: mouth [place] 00 daily. [facility] Yes 1{tbl} Take 1 [facility] (QULIPTA) 6-15 tablet by [facility]y o f 60 mg Tab 00:00: mouth [place] 00 daily. [facility] Yes 1{tbl} Take 1 [facility] (QULIPTA) 6-15 tablet by ity o f 60 mg Tab 00:00: mouth [place] 00 daily. [facility] Yes 1{tbl} Take 1 [facility] (QULIPTA) 6-15 tablet by [facility]y o f 60 mg Tab 00:00: mouth [place] 00 daily. [facility] Yes 1{tbl} Take 1 [facility] (QULIPTA) 6-15 tablet by ity o f 60 mg Tab 00:00: mouth [place] 00 daily. [facility] Yes 1{tbl} Take 1 [facility] (QULIPTA) 6-15 tablet by [facility] o f 60 mg Tab 00:00: mouth [place] 00 daily. [facility] Yes 1{tbl} Take 1 [facility] (QULIPTA) 6-15 tablet by [facility]y o f 60 mg Tab 00:00: mouth [place] 00 daily. [facility] Yes 1{tbl} Take 1 [facility] (QULIPTA) 6-15 tablet by [facility]y o f 60 mg Tab 00:00: mouth [place] 00 daily. [facility] Yes 1{tbl} Take 1 [facility] (QULIPTA) 6-15 tablet by [facility]y o f 60 mg Tab 00:00: mouth [place] 00 daily. [facility] Yes 1{tbl} Take 1 [facility] (QULIPTA) 6-15 tablet by [facility]y o f 60 mg Tab 00:00: mouth [place] 00 daily. [facility] Yes 1{tbl} Take 1 [facility] (QULIPTA) 6-15 tablet by [facility] o f 60 mg Tab 00:00: mouth [place] 00 daily. [facility] Yes 1{tbl} Take 1 [facility] (QULIPTA) 6-15 tablet by ity o f 60 mg Tab 00:00: mouth [place] 00 daily. [facility] Yes 1{tbl} Take 1 [facility] (QULIPTA) 6-15 tablet by [facility]y o f 60 mg Tab 00:00: mouth [place] 00 daily. [facility] Yes 1{tbl} Take 1 [facility] (QULIPTA) 6-15 tablet by [facility] o f 60 mg Tab 00:00: mouth [place] 00 daily. [facility] Yes 1{tbl} Take 1 [facility] (QULIPTA) 6-15 tablet by ity o f 60 mg Tab 00:00: mouth [place] 00 daily. [facility] Yes 1{tbl} Take 1 [facility] (QULIPTA) 6-15 tablet by [facility] o f 60 mg Tab 00:00: mouth [place] 00 daily. [facility] Yes 1{tbl} Take 1 [facility] (QULIPTA) 6-15 tablet by [facility]y o f 60 mg Tab 00:00: mouth [place] 00 daily. [facility] Yes 1{tbl} Take 1 [facility] (QULIPTA) 6-15 tablet by [facility]y o f 60 mg Tab 00:00: mouth [place] 00 daily. [facility] Yes 1{tbl} Take 1 [facility] (QULIPTA) 6-15 tablet by [facility]y o f 60 mg Tab 00:00: mouth [place] 00 daily. [facility] Yes 1{tbl} Take 1 [facility] (QULIPTA) 6-15 tablet by [facility]y o f 60 mg Tab 00:00: mouth [place] 00 daily. [facility] Yes 1{tbl} Take 1 [facility] (QULIPTA) 6-15 tablet by [facility]y o f 60 mg Tab 00:00: mouth [place] 00 daily. [facility] Yes 1{tbl} Take 1 [facility] (QULIPTA) 6-15 tablet by ity o f 60 mg Tab 00:00: mouth [place] 00 daily. [facility] Yes 1{tbl} Take 1 [facility] (QULIPTA) 6-15 tablet by ity o f 60 mg Tab 00:00: mouth [place] 00 daily. [facility] Yes 1{tbl} Take 1 [facility] (QULIPTA) 6-15 tablet by ity o f 60 mg Tab 00:00: mouth [place] 00 daily. [facility] Yes 1{tbl} Take 1 [facility] (QULIPTA) 6-15 tablet by ity o f 60 mg Tab 00:00: mouth [place] 00 daily. [facility] Yes 1{tbl} Take 1 [facility] (QULIPTA) 6-15 tablet by ity o f 60 mg Tab 00:00: mouth [place] 00 daily. [facility] Yes 1{tbl} Take 1 [facility] (QULIPTA) 6-15 tablet by ity o f 60 mg Tab 00:00: mouth [place] 00 daily. [facility] Yes 1{tbl} Take 1 [facility] (QULIPTA) 6-15 tablet by [facility]y o f 60 mg Tab 00:00: mouth [place] 00 daily. [facility] Yes 1{tbl} Take 1 [facility] (QULIPTA) 6-15 tablet by [facility]y o f 60 mg Tab 00:00: mouth [place] 00 daily. [facility] Yes 1{tbl} Take 1 [facility] (QULIPTA) 6-15 tablet by [facility] o f 60 mg Tab 00:00: mouth [place] 00 daily. [facility] Yes 1{tbl} Take 1 [facility] (QULIPTA) 6-15 tablet by [facility] o f 60 mg Tab 00:00: mouth [place] 00 daily. [facility] Yes 1{tbl} Take 1 [facility] (QULIPTA) 6-15 tablet by [facility] o f 60 mg Tab 00:00: mouth [place] 00 daily. [facility] Yes 1{tbl} Take 1 [facility] (QULIPTA) 6-15 tablet by [facility] o f 60 mg Tab 00:00: mouth [place] 00 daily. [facility] Yes 1{tbl} Take 1 [facility] (QULIPTA) 6-15 tablet by [facility] o f 60 mg Tab 00:00: mouth [place] 00 daily. [facility] Yes 1{tbl} Take 1 [facility] (QULIPTA) 6-15 tablet by [facility] o f 60 mg Tab 00:00: mouth [place] 00 daily. [facility] Yes 1{tbl} Take 1 [facility] (QULIPTA) 6-15 tablet by [facility] o f 60 mg Tab 00:00: mouth [place] 00 daily. [facility] Yes 1{tbl} Take 1 [facility] (QULIPTA) 6-15 tablet by [facility]y o f 60 mg Tab 00:00: mouth [place] 00 daily. [facility] Yes 1{tbl} Take 1 [facility] (QULIPTA) 6-15 tablet by [facility] o f 60 mg Tab 00:00: mouth [place] 00 daily. [facility] Yes 1{tbl} Take 1 [facility] (QULIPTA) 6-15 tablet by [facility]y o f 60 mg Tab 00:00: mouth [place] 00 daily. [facility] Yes 1{tbl} Take 1 [facility] (QULIPTA) 6-15 tablet by [facility] o f 60 mg Tab 00:00: mouth [place] 00 daily. [facility] Yes 1{tbl} Take 1 [facility] (QULIPTA) 6-15 tablet by [facility] o f 60 mg Tab 00:00: mouth [place] 00 daily. [facility] Yes 1{tbl} Take 1 [facility] (QULIPTA) 6-15 tablet by [facility] o f 60 mg Tab 00:00: mouth [place] 00 daily. [facility] Yes 1{tbl} Take 1 [facility] (QULIPTA) 6-15 tablet by [facility] o f 60 mg Tab 00:00: mouth [place] 00 daily. [facility] Yes 1{tbl} Take 1 [facility] (QULIPTA) 6-15 tablet by [facility] o f 60 mg Tab 00:00: mouth [place] 00 daily. [facility] Yes 1{tbl} Take 1 [facility] (QULIPTA) 6-15 tablet by [facility] o f 60 mg Tab 00:00: mouth [place] 00 daily. [facility] Yes 1{tbl} Take 1 [facility] (QULIPTA) 6-15 tablet by [facility] o f 60 mg Tab 00:00: mouth [place] 00 daily. [facility] Yes 1{tbl} Take 1 [facility] (QULIPTA) 6-15 tablet by [facility] o f 60 mg Tab 00:00: mouth [place] 00 daily. [facility] Yes 1{tbl} Take 1 [facility] (QULIPTA) 6-15 tablet by [facility] o f 60 mg Tab 00:00: mouth [place] 00 daily. [facility] Yes 1{tbl} Take 1 [facility] (QULIPTA) 6-15 tablet by [facility] o f 60 mg Tab 00:00: mouth [place] 00 daily. [facility] Yes 1{tbl} Take 1 [facility] (QULIPTA) 6-15 tablet by [facility] o f 60 mg Tab 00:00: mouth [place] 00 daily. [facility] Yes 1{tbl} Take 1 [facility] (QULIPTA) 6-15 tablet by [facility] o f 60 mg Tab 00:00: mouth [place] 00 daily. [facility] Yes 1{tbl} Take 1 [facility] (QULIPTA) 6-15 tablet by [facility] o f 60 mg Tab 00:00: mouth [place] 00 daily. [facility] Yes 1{tbl} Take 1 [facility] (QULIPTA) 6-15 tablet by [facility] o f 60 mg Tab 00:00: mouth [place] 00 daily. [facility] Yes 1{tbl} Take 1 [facility] (QULIPTA) 6-15 tablet by [facility] o f 60 mg Tab 00:00: mouth [place] 00 daily. [facility] Yes 1{tbl} Take 1 [facility] (QULIPTA) 6-15 tablet by [facility] o f 60 mg Tab 00:00: mouth [place] 00 daily. [facility] Yes 1{tbl} Take 1 [facility] (QULIPTA) 6-15 tablet by [facility] o f 60 mg Tab 00:00: mouth [place] 00 daily. [facility] Yes 1{tbl} Take 1 [facility] (QULIPTA) 6-15 tablet by [facility] o f 60 mg Tab 00:00: mouth [place] 00 daily. [facility] Yes 1{tbl} Take 1 [facility] (QULIPTA) 6-15 tablet by [facility] o f 60 mg Tab 00:00: mouth [place] 00 daily. [facility] Yes 1{tbl} Take 1 [facility] (QULIPTA) 6-15 tablet by [facility] o f 60 mg Tab 00:00: mouth [place] 00 daily. [facility] Yes 1{tbl} Take 1 [facility] (QULIPTA) 6-15 tablet by [facility] o f 60 mg Tab 00:00: mouth [place] 00 daily. [facility] Yes 1{tbl} Take 1 [facility] (QULIPTA) 6-15 tablet by [facility] o f 60 mg Tab 00:00: mouth [place] 00 daily. [facility] Yes 1{tbl} Take 1 [facility] (QULIPTA) 6-15 tablet by [facility] o f 60 mg Tab 00:00: mouth [place] 00 daily. [facility] Yes 1{tbl} Take 1 [facility] (QULIPTA) 6-15 tablet by [facility] o f 60 mg Tab 00:00: mouth [place] 00 daily. [facility] Yes 1{tbl} Take 1 [facility] (QULIPTA) 6-15 tablet by [facility] o f 60 mg Tab 00:00: mouth [place] 00 daily. [facility] Yes 1{tbl} Take 1 [facility] (QULIPTA) 6-15 tablet by [facility] o f 60 mg Tab 00:00: mouth [place] 00 daily. [facility] Yes 1{tbl} Take 1 [facility] (QULIPTA) 6-15 tablet by [facility] o f 60 mg Tab 00:00: mouth [place] 00 daily. [facility] Yes 1{tbl} Take 1 [facility] (QULIPTA) 6-15 tablet by [facility] o f 60 mg Tab 00:00: mouth [place] 00 daily. [facility] Yes 1{tbl} Take 1 [facility] (QULIPTA) 6-15 tablet by [facility] o f 60 mg Tab 00:00: mouth [place] 00 daily. [facility] Yes 1{tbl} Take 1 [facility] (QULIPTA) 6-15 tablet by [facility] o f 60 mg Tab 00:00: mouth [place] 00 daily. [facility] Yes 1{tbl} Take [address] [facility] (Qulipta) 6-15 tablet by [facility] Tab 00:00: mouth. [facility] 00 [place] levETIRAcet 2022- No 500mg Take [address] [facility] (KEPPRA) 4-13 04-08 mg by [facility] mg/mL 00:00: 23:59 mouth. Medic al solution 00 :00 [place] levETIRAcet 2022- No 500mg Take [address] [facility] (KEPPRA) 4-13 04-08 mg [facility] mg/mL 00:00: 23:59 mouth. Medic al solution 00 :00 [place] levETIRAcet 2022- No 500mg Take [address] [facility] (KEPPRA) 4-13 04-08 [facility] mg/mL 00:00: 23:59 mouth. Medic al solution 00 :00 [place] levETIRAcet 2021-0 2023- No 500mg Take [address] [facility] (KEPPRA) 4-13 04-08 mg [facility] mg/mL 00:00: 23:59 mouth. Medic al solution 00 :00 [place] levETIRAcet 2021-0 3- No 500mg Take [address] [facility] (KEPPRA) 4-13 04-08 [facility] mg/mL 00:00: 23:59 mouth. Medic al solution 00 :00 [place] levETIRAcet 2021-0 2023- No 500mg Take [address] [facility] (KEPPRA) 4-13 04-08 [facility] mg/mL 00:00: 23:59 mouth. Medic al solution 00 :00 [place] levETIRAcet 2021-0 2022- No 500mg Take [address] [facility] (KEPPRA) 4-13 04-08 mg [facility] mg/mL 00:00: 23:59 mouth. Medic al solution 00 :00 [place] levETIRAcet 2021-0 2022- No 500mg Take [address] [facility] (KEPPRA) 4-13 04-08 mg [facility] mg/mL 00:00: 23:59 mouth. Medic al solution 00 :00 [place] levETIRAcet 2021-0 3- No 500mg Take [address] [facility] (KEPPRA) 4-13 04-08 [facility] mg/mL 00:00: 23:59 mouth. Medic al solution 00 :00 [place] levETIRAcet 2021-0 3- No 500mg Take [address] [facility] (KEPPRA) 4-13 04-08 [facility] mg/mL 00:00: 23:59 mouth. Medic al solution 00 :00 [place] levETIRAcet 2021-0 3- No 500mg Take [address] [facility] (KEPPRA) 4-13 04-08 [facility] mg/mL 00:00: 23:59 mouth. Medic al solution 00 :00 [place] SUMAtriptan 0 Yes 20mg [facility] [...] [facility] n nasal spray SERTraline 2020-0 Yes [id number] 25mg Take 1 [facility] mg 1-14 tablet by [facility] tablet 00:00: mouth [place] 00 daily. [facility] SERTraline 2020-0 Yes [id number] 25mg Take 1 [facility] 25 mg 1-14 tablet by [facility] tablet 00:00: mouth [place] 00 daily. [facility] SERTraline 2020-0 Yes [id number] 25mg Take 1 [facility] 25 mg 1-14 tablet by [facility] of tablet 00:00: mouth [place] 00 daily. [facility] SERTraline 2020-0 Yes [id number] 25mg Take 1 [facility] 25 mg 1-14 tablet by [facility] tablet 00:00: mouth [place] 00 daily. [facility] SERTraline 2020-0 Yes [id number] 25mg Take 1 [facility] 25 mg 1-14 tablet by [facility] tablet 00:00: mouth [place] 00 daily. [facility] SERTraline 2020-0 Yes [id number] 25mg Take 1 [facility] 25 mg 1-14 tablet by [facility] tablet 00:00: mouth [place] 00 daily. [facility] SERTraline 2020-0 Yes [id number] 25mg Take 1 [facility] 25 mg 1-14 tablet by [facility] tablet 00:00: mouth [place] 00 daily. [facility] SERTraline 2020-0 Yes [id number] 25mg Take 1 [facility] 25 mg 1-14 tablet by [facility] tablet 00:00: mouth [place] 00 daily. [facility] SERTraline 2020-0 Yes [id number] 25mg Take 1 [facility] 25 mg 1-14 tablet by [facility] tablet 00:00: mouth [place] 00 daily. [facility] SERTraline 2020-0 Yes [id number] 25mg Take 1 [facility] 25 mg 1-14 tablet by [facility] tablet 00:00: mouth [place] 00 daily. [facility] SERTraline 2020-0 Yes [id number] 25mg Take 1 [facility] 25 mg 1-14 tablet by [facility] tablet 00:00: mouth [place] 00 daily. [facility] SERTraline 2020-0 Yes [id number] 25mg Take 1 [facility] 25 mg 1-14 tablet by [facility] tablet 00:00: mouth [place] 00 daily. [facility] SERTraline 2020-0 Yes [id number] 25mg Take 1 [facility] 25 mg 1-14 tablet by [facility] tablet 00:00: mouth [place] 00 daily. [facility] SERTraline 2020-0 Yes [id number] 25mg Take 1 [facility] 25 mg 1-14 tablet by [facility] tablet 00:00: mouth [place] 00 daily. [facility] SERTraline 2020-0 Yes [id number] 25mg Take 1 [facility] 25 mg 1-14 tablet by [facility] tablet 00:00: mouth [place] 00 daily. [facility] SERTraline 2020-0 Yes [id number] 25mg Take 1 [facility] 25 mg 1-14 tablet by [facility] tablet 00:00: mouth [place] 00 daily. [facility] SERTraline 2020-0 Yes [id number] 25mg Take 1 [facility] 25 mg 1-14 tablet by [facility] tablet 00:00: mouth [place] 00 daily. [facility] SERTraline 2019-0 2021- No [id number] 25mg Take 1 [facility] 25 mg 1-14 12-05 tablet by [facility] tablet 00:00: 00:00 mouth [place] 00 :00 daily. [facility] SERTraline 2019-0 2021- No [id number] 25mg Take 1 [facility] 25 mg 1-14 12-05 tablet by [facility] tablet 00:00: 00:00 mouth [place] 00 :00 daily. [facility] SERTraline 2019-0 2021- No [id number] 25mg Take 1 [facility] 25 mg 1-14 12-05 tablet by [facility] tablet 00:00: 00:00 mouth [place] 00 :00 daily. [facility] busPIRone 2020-0 Yes [id number] 15mg Take 1 [facility] 15 mg 1-13 tablet by [facility] tablet 00:00: mouth 2 00 (two) Medical times Branch daily. busPIRone 2020-0 Yes [id number] 15mg Take 1 [facility] 15 mg 1-13 tablet by [facility] tablet 00:00: mouth 2 00 (two) Medical times Branch daily. busPIRone 2020-0 Yes [id number] 15mg Take 1 [facility] 15 mg 1-13 tablet by [facility] tablet 00:00: mouth 2 00 (two) Medical times Branch daily. busPIRone 2020-0 Yes [id number] 15mg Take 1 [facility] 15 mg 1-13 tablet by [facility] tablet 00:00: mouth 2 00 (two) Medical times Branch daily. busPIRone 2020-0 Yes [id number] 15mg Take 1 [facility] 15 mg 1-13 tablet by [facility] tablet 00:00: mouth 2 [place] 00 (two) Medical times Branch daily. busPIRone 2020-0 Yes [id number] 15mg Take 1 [facility] 15 mg 1-13 tablet by [facility] tablet 00:00: mouth (two) Medical times Branch daily. busPIRone 2020-0 Yes [id number] 15mg Take 1 [facility] 15 mg 1-13 tablet by [facility] tablet 00:00: mouth (two) Medical times Branch daily. busPIRone 2020-0 Yes [id number] 15mg Take 1 [facility] 15 mg 1-13 tablet by [facility] tablet 00:00: mouth (two) Medical times Branch daily. busPIRone 2020-0 Yes [id number] 15mg Take 1 [facility] 15 mg 1-13 tablet by [facility] tablet 00:00: mouth (two) Medical times [facility] daily. busPIRone 2020-0 Yes [id number] 15mg Take 1 [facility] 15 mg 1-13 tablet by [facility] tablet 00:00: mouth (two) Medical times Branch daily. busPIRone 2020-0 Yes [id number] 15mg Take 1 [facility] 15 mg 1-13 tablet by [facility] tablet 00:00: mouth (two) Medical times Branch daily. busPIRone 2020-0 Yes [id number] 15mg Take 1 [facility] 15 mg 1-13 tablet by [facility] tablet 00:00: mouth (two) Medical times Branch daily. busPIRone 2020-0 Yes [id number] 15mg Take 1 [facility] 15 mg 1-13 tablet by [facility] tablet 00:00: mouth (two) Medical times Branch daily. busPIRone 2020-0 Yes [id number] 15mg Take 1 [facility] 15 mg 1-13 tablet by [facility] tablet 00:00: mouth [place] (two) Medical times Branch daily. busPIRone 2020-0 Yes [id number] 15mg Take 1 [facility] 15 mg 1-13 tablet by [facility] tablet 00:00: mouth (two) Medical times Branch daily. busPIRone 2020-0 Yes [id number] 15mg Take 1 [facility] 15 mg 1-13 tablet by [facility] tablet 00:00: mouth 2 [place] 00 (two) Medical times Branch daily. busPIRone 2020-0 Yes [id number] 15mg Take 1 [facility] 15 mg 1-13 tablet by [facility] tablet 00:00: mouth (two) Medical times Branch daily. busPIRone 2020-0 Yes [id number] 15mg Take 1 [facility] 15 mg 1-13 tablet by [facility] tablet 00:00: mouth (two) Medical times Branch daily. busPIRone 2020-0 Yes [id number] 15mg Take 1 [facility] 15 mg 1-13 tablet by [facility] tablet 00:00: mouth (two) Medical times Branch daily. busPIRone 2020-0 Yes [id number] 15mg Take 1 [facility] 15 mg 1-13 tablet by [facility] tablet 00:00: mouth (two) Medical times Branch daily. busPIRone 2020-0 Yes [id number] 15mg Take 1 [facility] 15 mg 1-13 tablet by [facility] tablet 00:00: mouth (two) Medical times Branch daily. busPIRone 2020-0 Yes [id number] 15mg Take 1 [facility] 15 mg 1-13 tablet by [facility] tablet 00:00: mouth (two) Medical times Branch daily. busPIRone 2020-0 Yes [id number] 15mg Take 1 [facility] 15 mg 1-13 tablet by [facility] tablet 00:00: mouth (two) Medical times Branch daily. busPIRone 2020-0 Yes [id number] 15mg Take 1 [facility] 15 mg 1-13 tablet by [facility] tablet 00:00: mouth (two) Medical times Branch daily. busPIRone 2020-0 Yes [id number] 15mg Take 1 [facility] 15 mg 1-13 tablet by [facility] tablet 00:00: mouth (two) Medical times Branch daily. busPIRone 2020-0 Yes [id number] 15mg Take 1 [facility] 15 mg 1-13 tablet by [facility] tablet 00:00: mouth (two) Medical times Branch daily. busPIRone 2020-0 Yes [id number] 15mg Take 1 [facility] 15 mg 1-13 tablet by [facility] tablet 00:00: mouth (two) Medical times Branch daily. busPIRone 2020-0 Yes [id number] 15mg Take 1 [facility] 15 mg 1-13 tablet by [facility] tablet 00:00: mouth (two) Medical times Branch daily. busPIRone 2020-0 Yes [id number] 15mg Take 1 [facility] 15 mg 1-13 tablet by [facility] tablet 00:00: mouth (two) Medical times Branch daily. busPIRone 2020-0 Yes [id number] 15mg Take 1 [facility] 15 mg 1-13 tablet by [facility] tablet 00:00: mouth (two) Medical times Branch daily. busPIRone 2020-0 Yes [id number] 15mg Take 1 [facility] 15 mg 1-13 tablet by [facility] tablet 00:00: mouth (two) Medical times Branch daily. busPIRone 2020-0 Yes [id number] 15mg Take 1 [facility] 15 mg 1-13 tablet by [facility] tablet 00:00: mouth (two) Medical times Branch daily. busPIRone 2020-0 Yes [id number] 15mg Take 1 [facility] 15 mg 1-13 tablet by [facility] tablet 00:00: mouth (two) Medical times Branch daily. busPIRone 2020-0 Yes [id number] 15mg Take 1 [facility] 15 mg 1-13 tablet by [facility] tablet 00:00: mouth (two) Medical times Branch daily. busPIRone 2020-0 Yes [id number] 15mg Take 1 [facility] 15 mg 1-13 tablet by [facility] tablet 00:00: mouth (two) Medical times Branch daily. busPIRone 2020-0 Yes [id number] 15mg Take 1 [facility] 15 mg 1-13 tablet by [facility] tablet 00:00: mouth (two) Medical times Branch daily. busPIRone 2020-0 Yes [id number] 15mg Take 1 [facility] 15 mg 1-13 tablet by [facility] tablet 00:00: mouth (two) Medical times Branch daily. busPIRone 2020-0 Yes [id number] 15mg Take 1 [facility] 15 mg 1-13 tablet by [facility] tablet 00:00: mouth (two) Medical times Branch daily. busPIRone 2020-0 Yes [id number] 15mg Take 1 [facility] 15 mg 1-13 tablet by [facility] tablet 00:00: mouth (two) Medical times Branch daily. busPIRone 2020-0 Yes [id number] 15mg Take 1 [facility] 15 mg 1-13 tablet by [facility] tablet 00:00: mouth (two) Medical times Branch daily. busPIRone 2020-0 Yes [id number] 15mg Take 1 [facility] 15 mg 1-13 tablet by [facility] tablet 00:00: mouth (two) Medical times Branch daily. busPIRone 2020-0 Yes [id number] 15mg Take 1 [facility] 15 mg 1-13 tablet by [facility] tablet 00:00: mouth (two) Medical times Branch daily. busPIRone 2020-0 Yes [id number] 15mg Take 1 [facility] 15 mg 1-13 tablet by [facility] tablet 00:00: mouth (two) Medical times Branch daily. busPIRone 2020-0 Yes [id number] 15mg Take 1 [facility] 15 mg 1-13 tablet by [facility] tablet 00:00: mouth (two) Medical times Branch daily. busPIRone 2020-0 Yes [id number] 15mg Take 1 [facility] 15 mg 1-13 tablet by [facility] tablet 00:00: mouth (two) Medical times Branch daily. busPIRone 2020-0 Yes [id number] 15mg Take 1 [facility] 15 mg 1-13 tablet by [facility] tablet 00:00: mouth (two) Medical times Branch daily. busPIRone 2020-0 Yes [id number] 15mg Take 1 [facility] 15 mg 1-13 tablet by [facility] tablet 00:00: mouth (two) Medical times Branch daily. busPIRone 2020-0 Yes [id number] 15mg Take 1 [facility] 15 mg 1-13 tablet by [facility] tablet 00:00: mouth (two) Medical times Branch daily. busPIRone 2020-0 Yes [id number] 15mg Take 1 [facility] 15 mg 1-13 tablet by [facility] tablet 00:00: mouth (two) Medical times Branch daily. busPIRone 2020-0 Yes [id number] 15mg Take 1 [facility] 15 mg 1-13 tablet by [facility] tablet 00:00: mouth (two) Medical times Branch daily. busPIRone 2020-0 Yes [id number] 15mg Take 1 [facility] 15 mg 1-13 tablet by [facility] tablet 00:00: mouth (two) Medical times Branch daily. busPIRone 2020-0 Yes [id number] 15mg Take 1 [facility] 15 mg 1-13 tablet by [facility] tablet 00:00: mouth (two) Medical times Branch daily. busPIRone 2020-0 Yes [id number] 15mg Take 1 [facility] 15 mg 1-13 tablet by [facility] tablet 00:00: mouth (two) Medical times Branch daily. busPIRone 2020-0 Yes [id number] 15mg Take 1 [facility] 15 mg 1-13 tablet by [facility] tablet 00:00: mouth (two) Medical times Branch daily. busPIRone 2020-0 Yes [id number] 15mg Take 1 [facility] 15 mg 1-13 tablet by [facility] tablet 00:00: mouth (two) Medical times Branch daily. busPIRone 2020-0 Yes [id number] 15mg Take 1 [facility] 15 mg 1-13 tablet by [facility] tablet 00:00: mouth (two) Medical times Branch daily. busPIRone 2020-0 Yes [id number] 15mg Take 1 [facility] 15 mg 1-13 tablet by [facility] tablet 00:00: mouth (two) Medical times Branch daily. busPIRone 2020-0 Yes [id number] 15mg Take 1 [facility] 15 mg 1-13 tablet by [facility] tablet 00:00: mouth (two) Medical times Branch daily. busPIRone 2020-0 Yes [id number] 15mg Take 1 [facility] 15 mg 1-13 tablet by [facility] tablet 00:00: mouth (two) Medical times Branch daily. busPIRone 2020-0 Yes [id number] 15mg Take 1 [facility] 15 mg 1-13 tablet by [facility] tablet 00:00: mouth (two) Medical times Branch daily. busPIRone 2020-0 Yes [id number] 15mg Take 1 [facility] 15 mg 1-13 tablet by [facility] tablet 00:00: mouth (two) Medical times Branch daily. busPIRone 2020-0 Yes [id number] 15mg Take 1 [facility] 15 mg 1-13 tablet by [facility] of tablet 00:00: mouth (two) Medical times Branch daily. busPIRone 2020-0 Yes [id number] 15mg Take 1 [facility] 15 mg 1-13 tablet by [facility] of tablet 00:00: mouth (two) Medical times Branch daily. busPIRone 2020-0 Yes [id number] 15mg Take 1 [facility] 15 mg 1-13 tablet by [facility] of tablet 00:00: mouth (two) Medical times Branch daily. busPIRone 2020-0 Yes [id number] 15mg Take 1 [facility] 15 mg 1-13 tablet by [facility] of tablet 00:00: mouth (two) Medical times Branch daily. busPIRone 2020-0 Yes [id number] 15mg Take 1 [facility] 15 mg 1-13 tablet by [facility] of tablet 00:00: mouth (two) Medical times Branch daily. busPIRone 2020-0 Yes [id number] 15mg Take 1 [facility] 15 mg 1-13 tablet by [facility] tablet 00:00: mouth (two) Medical times Branch daily. busPIRone 2020-0 Yes [id number] 15mg Take 1 [facility] 15 mg 1-13 tablet by [facility] tablet 00:00: mouth (two) Medical times Branch daily. busPIRone 2020-0 Yes [id number] 15mg Take 1 [facility] 15 mg 1-13 tablet by [facility] tablet 00:00: mouth (two) Medical times Branch daily. busPIRone 2020-0 Yes [id number] 15mg Take 1 [facility] 15 mg 1-13 tablet by [facility] of tablet 00:00: mouth (two) Medical times Branch daily. busPIRone 2020-0 Yes [id number] 15mg Take 1 [facility] 15 mg 1-13 tablet by [facility] tablet 00:00: mouth (two) Medical times Branch daily. busPIRone 2020-0 Yes [id number] 15mg Take 1 [facility] 15 mg 1-13 tablet by [facility] tablet 00:00: mouth (two) Medical times Branch daily. busPIRone 2020-0 Yes [id number] 15mg Take 1 [facility] 15 mg 1-13 tablet by [facility] tablet 00:00: mouth (two) Medical times Branch daily. busPIRone 2020-0 Yes [id number] 15mg Take 1 [facility] 15 mg 1-13 tablet by [facility] tablet 00:00: mouth (two) Medical times Branch daily. busPIRone 2020-0 Yes [id number] 15mg Take 1 [facility] 15 mg 1-13 tablet by [facility] tablet 00:00: mouth (two) Medical times Branch daily. busPIRone 2020-0 Yes [id number] 15mg Take 1 [facility] 15 mg 1-13 tablet by [facility] tablet 00:00: mouth (two) Medical times Branch daily. busPIRone 2020-0 Yes [id number] 15mg Take 1 [facility] 15 mg 1-13 tablet by [facility] tablet 00:00: mouth (two) Medical times Branch daily. busPIRone 2020-0 Yes [id number] 15mg Take 1 [facility] 15 mg 1-13 tablet by [facility] tablet 00:00: mouth (two) Medical times Branch daily. busPIRone 2020-0 Yes [id number] 15mg Take 1 [facility] 15 mg 1-13 tablet by [facility] tablet 00:00: mouth (two) Medical times Branch daily. busPIRone 2020-0 Yes [id number] 15mg Take 1 [facility] 15 mg 1-13 tablet by [facility] tablet 00:00: mouth (two) Medical times Branch daily. busPIRone 2020-0 Yes [id number] 15mg Take 1 [facility] 15 mg 1-13 tablet by [facility] of tablet 00:00: mouth (two) Medical times Branch daily. busPIRone 2020-0 Yes [id number] 15mg Take 1 [facility] 15 mg 1-13 tablet by [facility] of tablet 00:00: mouth (two) Medical times Branch daily. busPIRone 2020-0 Yes [id number] 15mg Take 1 [facility] 15 mg 1-13 tablet by [facility] of tablet 00:00: mouth (two) Medical times Branch daily. busPIRone 2020-0 Yes [id number] 15mg Take 1 [facility] 15 mg 1-13 tablet by [facility] of tablet 00:00: mouth (two) Medical times Branch daily. busPIRone 2020-0 Yes [id number] 15mg Take 1 [facility] 15 mg 1-13 tablet by [facility] of tablet 00:00: mouth (two) Medical times Branch daily. busPIRone 2020-0 Yes [id number] 15mg Take 1 [facility] 15 mg 1-13 tablet by [facility] of tablet 00:00: mouth [place] (two) Medical times Branch daily. busPIRone 2020-0 Yes [id number] 15mg Take 1 [facility] 15 mg 1-13 tablet by [facility] of tablet 00:00: mouth (two) Medical times Branch daily. busPIRone 2020-0 Yes [id number] 15mg Take 1 [facility] 15 mg 1-13 tablet by [facility] of tablet 00:00: mouth [place] (two) Medical times Branch daily. busPIRone 2020-0 Yes [id number] 15mg Take 1 [facility] 15 mg 1-13 tablet by [facility] of tablet 00:00: mouth [place] (two) Medical times Branch daily. busPIRone 2020-0 Yes [id number] 15mg Take 1 [facility] 15 mg 1-13 tablet by [facility] of tablet 00:00: mouth [place] (two) Medical times Branch daily. busPIRone 2020-0 Yes [id number] 15mg Take 1 [facility] 15 mg 1-13 tablet by [facility] of tablet 00:00: mouth 2 [place] (two) Medical times Branch daily. busPIRone 2020-0 Yes [id number] 15mg Take 1 [facility] 15 mg 1-13 tablet by [facility] of tablet 00:00: mouth 2 [place] (two) Medical times Branch daily. busPIRone 2020-0 Yes [id number] 15mg Take 1 [facility] 15 mg 1-13 tablet by [facility] of tablet 00:00: mouth [place] (two) Medical times Branch daily. busPIRone 2020-0 Yes [id number] 15mg Take 1 [facility] 15 mg 1-13 tablet by [facility] of tablet 00:00: mouth [place] (two) Medical times Branch daily. busPIRone 2020-0 Yes [id number] 15mg Take 1 [facility] 15 mg 1-13 tablet by [facility] of tablet 00:00: mouth (two) Medical times Branch daily. busPIRone 2020-0 Yes [id number] 15mg Take 1 [facility] 15 mg 1-13 tablet by [facility] of tablet 00:00: mouth [place] (two) Medical times Branch daily. busPIRone 2020-0 Yes [id number] 15mg Take 1 [facility] 15 mg 1-13 tablet by [facility] of tablet 00:00: mouth [place] (two) Medical times Branch daily. busPIRone 2020-0 Yes [id number] 15mg Take 1 [facility] 15 mg 1-13 tablet by [facility] of tablet 00:00: mouth [place] (two) Medical times Branch daily. busPIRone 2020-0 Yes [id number] 15mg Take 1 [facility] 15 mg 1-13 tablet by [facility] of tablet 00:00: mouth [place] (two) Medical times Branch daily. busPIRone 2020-0 Yes [id number] 15mg Take 1 [facility] 15 mg 1-13 tablet by [facility] of tablet 00:00: mouth [place] (two) Medical times Branch daily. busPIRone 2020-0 Yes [id number] 15mg Take 1 [facility] 15 mg 1-13 tablet by [facility] tablet 00:00: mouth [place] (two) Medical times Branch daily. busPIRone 2020-0 Yes [id number] 15mg Take 1 [facility] 15 mg 1-13 tablet by [facility] of tablet 00:00: mouth [place] (two) Medical times Branch daily. busPIRone 2020-0 Yes [id number] 15mg Take 1 [facility] 15 mg 1-13 tablet by [facility] tablet 00:00: mouth (two) Medical times Branch daily. busPIRone 2020-0 Yes [id number] 15mg Take 1 [facility] 15 mg 1-13 tablet by [facility] tablet 00:00: mouth (two) Medical times Branch daily. busPIRone 2020-0 Yes [id number] 15mg Take 1 [facility] 15 mg 1-13 tablet by [facility] tablet 00:00: mouth (two) Medical times Branch daily. busPIRone 2020-0 Yes [id number] 15mg Take 1 [facility] 15 mg 1-13 tablet by [facility] tablet 00:00: mouth (two) Medical times Branch daily. busPIRone 2020-0 Yes [id number] 15mg Take 1 [facility] 15 mg 1-13 tablet by [facility] tablet 00:00: mouth (two) Medical times Branch daily. busPIRone 2020-0 Yes [id number] 15mg Take 1 [facility] 15 mg 1-13 tablet by [facility] tablet 00:00: mouth (two) Medical times Branch daily. busPIRone 2020-0 Yes [id number] 15mg Take 1 [facility] 15 mg 1-13 tablet by [facility] tablet 00:00: mouth (two) Medical times Branch daily. busPIRone 2020-0 Yes [id number] 15mg Take 1 [facility] 15 mg 1-13 tablet by [facility] tablet 00:00: mouth (two) Medical times Branch daily. busPIRone 2020-0 Yes [id number] 15mg Take 1 [facility] 15 mg 1-13 tablet by [facility] tablet 00:00: mouth (two) Medical times Branch daily. busPIRone 2020-0 Yes [id number] 15mg Take 1 [facility] 15 mg 1-13 tablet by [facility] tablet 00:00: mouth (two) Medical times Branch daily. busPIRone 2020-0 Yes [id number] 15mg Take 1 [facility] 15 mg 1-13 tablet by [facility] tablet 00:00: mouth (two) Medical times Branch daily. busPIRone 2020-0 Yes [id number] 15mg Take 1 [facility] 15 mg 1-13 tablet by [facility] tablet 00:00: mouth (two) Medical times Branch daily. busPIRone 2020-0 Yes [id number] 15mg Take 1 [facility] 15 mg 1-13 tablet by [facility] tablet 00:00: mouth (two) Medical times Branch daily. busPIRone 2020-0 Yes [id number] 15mg Take 1 [facility] 15 mg 1-13 tablet by [facility] tablet 00:00: mouth (two) Medical times Branch daily. busPIRone 2020-0 Yes [id number] 15mg Take 1 [facility] 15 mg 1-13 tablet by [facility] tablet 00:00: mouth (two) Medical times Branch daily. busPIRone 2020-0 Yes [id number] 15mg Take 1 [facility] 15 mg 1-13 tablet by [facility] tablet 00:00: mouth (two) Medical times Branch daily. busPIRone 2020-0 Yes [id number] 15mg Take 1 [facility] 15 mg 1-13 tablet by [facility] tablet 00:00: mouth (two) Medical times Branch daily. busPIRone 2020-0 Yes [id number] 15mg Take 1 [facility] 15 mg 1-13 tablet by [facility] tablet 00:00: mouth (two) Medical times Branch daily. busPIRone 2020-0 Yes [id number] 15mg Take 1 [facility] 15 mg 1-13 tablet by [facility] tablet 00:00: mouth (two) Medical times Branch daily. busPIRone 2020-0 Yes [id number] 15mg Take 1 [facility] 15 mg 1-13 tablet by [facility] tablet 00:00: mouth (two) Medical times Branch daily. busPIRone 2020-0 Yes [id number] 15mg Take 1 [facility] 15 mg 1-13 tablet by [facility] tablet 00:00: mouth (two) Medical times Branch daily. busPIRone 2020-0 Yes [id number] 15mg Take 1 [facility] 15 mg 1-13 tablet by [facility] tablet 00:00: mouth (two) Medical times Branch daily. busPIRone 2020-0 Yes [id number] 15mg Take 1 [facility] 15 mg 1-13 tablet by [facility] tablet 00:00: mouth (two) Medical times Branch daily. busPIRone 2020-0 Yes [id number] 15mg Take 1 [facility] 15 mg 1-13 tablet by [facility] tablet 00:00: mouth (two) Medical times Branch daily. busPIRone 2020-0 Yes [id number] 15mg Take 1 [facility] 15 mg 1-13 tablet by [facility] tablet 00:00: mouth (two) Medical times Branch daily. busPIRone 2020-0 Yes [id number] 15mg Take 1 [facility] 15 mg 1-13 tablet by [facility] tablet 00:00: mouth (two) Medical times Branch daily. busPIRone 2020-0 Yes [id number] 15mg Take 1 [facility] 15 mg 1-13 tablet by [facility] tablet 00:00: mouth (two) Medical times Branch daily. busPIRone 2020-0 Yes [id number] 15mg Take 1 [facility] 15 mg 1-13 tablet by [facility] tablet 00:00: mouth (two) Medical times Branch daily. busPIRone 2020-0 Yes [id number] 15mg Take 1 [facility] 15 mg 1-13 tablet by [facility] of tablet 00:00: mouth (two) Medical times Branch daily. busPIRone 2020-0 Yes [id number] 15mg Take 1 [facility] 15 mg 1-13 tablet by [facility] tablet 00:00: mouth (two) Medical times Branch daily. busPIRone 2020-0 Yes [id number] 15mg Take 1 [facility] 15 mg 1-13 tablet by [facility] tablet 00:00: mouth (two) Medical times Branch daily. busPIRone 2020-0 Yes [id number] 15mg Take 1 [facility] 15 mg 1-13 tablet by [facility] tablet 00:00: mouth (two) Medical times Branch daily. busPIRone 2020-0 Yes [id number] 15mg Take 1 [facility] 15 mg 1-13 tablet by [facility] tablet 00:00: mouth (two) Medical times Branch daily. busPIRone 2020-0 Yes [id number] 15mg Take 1 [facility] 15 mg 1-13 tablet by [facility] tablet 00:00: mouth (two) Medical times Branch daily. busPIRone 2020-0 Yes [id number] 15mg Take 1 [facility] 15 mg 1-13 tablet by [facility] tablet 00:00: mouth (two) Medical times Branch daily. busPIRone 2020-0 Yes [id number] 15mg Take 1 [facility] 15 mg 1-13 tablet by [facility] tablet 00:00: mouth (two) Medical times Branch daily. busPIRone 2020-0 Yes [id number] 15mg Take 1 [facility] 15 mg 1-13 tablet by [facility] tablet 00:00: mouth (two) Medical times Branch daily. busPIRone 2020-0 Yes [id number] 15mg Take 1 [facility] 15 mg 1-13 tablet by [facility] tablet 00:00: mouth (two) Medical times Branch daily. busPIRone 2020-0 Yes [id number] 15mg Take 1 [facility] 15 mg 1-13 tablet by [facility] tablet 00:00: mouth (two) Medical times Branch daily. busPIRone 2020-0 Yes [id number] 15mg Take 1 [facility] 15 mg 1-13 tablet by [facility] tablet 00:00: mouth (two) Medical times Branch daily. busPIRone 2020-0 Yes [id number] 15mg Take 1 [facility] 15 mg 1-13 tablet by [facility] of tablet 00:00: mouth (two) Medical times Branch daily. busPIRone 2020-0 Yes [id number] 15mg Take 1 [facility] 15 mg 1-13 tablet by [facility] of tablet 00:00: mouth (two) Medical times Branch daily. busPIRone 2020-0 Yes [id number] 15mg Take 1 [facility] 15 mg 1-13 tablet by [facility] tablet 00:00: mouth (two) Medical times Branch daily. busPIRone 2020-0 Yes [id number] 15mg Take 1 [facility] 15 mg 1-13 tablet by [facility] of tablet 00:00: mouth (two) Medical times Branch daily. busPIRone 2020-0 Yes [id number] 15mg Take 1 [facility] 15 mg 1-13 tablet by [facility] tablet 00:00: mouth (two) Medical times Branch daily. busPIRone 2020-0 Yes [id number] 15mg Take 1 [facility] 15 mg 1-13 tablet by [facility] of tablet 00:00: mouth (two) Medical times Branch daily. busPIRone 2020-0 Yes [id number] 15mg Take 1 [facility] 15 mg 1-13 tablet by [facility] tablet 00:00: mouth (two) Medical times Branch daily. busPIRone 2020-0 Yes [id number] 15mg Take 1 [facility] 15 mg 1-13 tablet by [facility] tablet 00:00: mouth (two) Medical times Branch daily. busPIRone 2020-0 Yes [id number] 15mg Take 1 [facility] 15 mg 1-13 tablet by [facility] tablet 00:00: mouth (two) Medical times Branch daily. busPIRone 2020-0 Yes [id number] 15mg Take 1 [facility] 15 mg 1-13 tablet by [facility] tablet 00:00: mouth (two) Medical times Branch daily. busPIRone 2020-0 Yes [id number] 15mg Take 1 [facility] 15 mg 1-13 tablet by [facility] tablet 00:00: mouth (two) Medical times Branch daily. busPIRone 2020-0 Yes [id number] 15mg Take 1 [facility] 15 mg 1-13 tablet by [facility] tablet 00:00: mouth (two) Medical times Branch daily. busPIRone 2020-0 Yes [id number] 15mg Take 1 [facility] 15 mg 1-13 tablet by [facility] tablet 00:00: mouth (two) Medical times Branch daily. busPIRone 2020-0 Yes [id number] 15mg Take 1 [facility] 15 mg 1-13 tablet by [facility] tablet 00:00: mouth (two) Medical times Branch daily. busPIRone 2020-0 Yes [id number] 15mg Take 1 [facility] 15 mg 1-13 tablet by [facility] tablet 00:00: mouth (two) Medical times Branch daily. busPIRone 2020-0 Yes [id number] 15mg Take 1 [facility] 15 mg 1-13 tablet by [facility] tablet 00:00: mouth (two) Medical times Branch daily. busPIRone 2020-0 Yes [id number] 15mg Take 1 [facility] 15 mg 1-13 tablet by [facility] tablet 00:00: mouth (two) Medical times Branch daily. busPIRone 2020-0 Yes [id number] 15mg Take 1 [facility] 15 mg 1-13 tablet by [facility] of tablet 00:00: mouth (two) Medical times Branch daily. busPIRone 2020-0 Yes [id number] 15mg Take 1 [facility] 15 mg 1-13 tablet by [facility] of tablet 00:00: mouth (two) Medical times Branch daily. busPIRone 2020-0 Yes [id number] 15mg Take 1 [facility] 15 mg 1-13 tablet by [facility] of tablet 00:00: mouth (two) Medical times Branch daily. busPIRone 2020-0 Yes [id number] 15mg Take 1 [facility] 15 mg 1-13 tablet by [facility] of tablet 00:00: mouth (two) Medical times Branch daily. busPIRone 2020-0 Yes [id number] 15mg Take 1 [facility] 15 mg 1-13 tablet by [facility] of tablet 00:00: mouth (two) Medical times Branch daily. busPIRone 2020-0 Yes [id number] 15mg Take 1 [facility] 15 mg 1-13 tablet by [facility] of tablet 00:00: mouth (two) Medical times Branch daily. busPIRone 2020-0 Yes [id number] 15mg Take 1 [facility] 15 mg 1-13 tablet by [facility] of tablet 00:00: mouth (two) Medical times Branch daily. busPIRone 2020-0 Yes [id number] 15mg Take 1 [facility] 15 mg 1-13 tablet by [facility] of tablet 00:00: mouth (two) Medical times Branch daily. busPIRone 2020-0 Yes [id number] 15mg Take 1 [facility] 15 mg 1-13 tablet by [facility] of tablet 00:00: mouth (two) Medical times Branch daily. busPIRone 2020-0 Yes [id number] 15mg Take 1 [facility] 15 mg 1-13 tablet by [facility] of tablet 00:00: mouth (two) Medical times Branch daily. busPIRone 2020-0 Yes [id number] 15mg Take 1 [facility] 15 mg 1-13 tablet by [facility] of tablet 00:00: mouth (two) Medical times Branch daily. busPIRone 2020-0 Yes [id number] 15mg Take 1 [facility] 15 mg 1-13 tablet by [facility] of tablet 00:00: mouth (two) Medical times Branch daily. busPIRone 2020-0 Yes [id number] 15mg Take 1 [facility] 15 mg 1-13 tablet by [facility] of tablet 00:00: mouth (two) Medical times Branch daily. busPIRone 2020-0 Yes [id number] 15mg Take 1 [facility] 15 mg 1-13 tablet by [facility] of tablet 00:00: mouth (two) Medical times Branch daily. busPIRone 2020-0 Yes [id number] 15mg Take 1 [facility] 15 mg 1-13 tablet by [facility] of tablet 00:00: mouth (two) Medical times Branch daily. busPIRone 2020-0 Yes [id number] 15mg Take 1 [facility] 15 mg 1-13 tablet by [facility]y of tablet 00:00: mouth (two) Medical times Branch daily. busPIRone 2020-0 Yes [id number] 15mg Take 1 [facility] 15 mg 1-13 tablet by [facility] of tablet 00:00: mouth (two) Medical times Branch daily. busPIRone 2020-0 Yes [id number] 15mg Take 1 [facility] 15 mg 1-13 tablet by [facility]y of tablet 00:00: mouth (two) Medical times Branch daily. busPIRone 2020-0 Yes [id number] 15mg Take 1 [facility] 15 mg 1-13 tablet by [facility]y of tablet 00:00: mouth (two) Medical times Branch daily. busPIRone 2020-0 Yes [id number] 15mg Take 1 [facility] 15 mg 1-13 tablet by ity of tablet 00:00: mouth (two) Medical times Branch daily. busPIRone 2020-0 Yes [id number] 15mg Take 1 [facility] 15 mg 1-13 tablet by [facility]y of tablet 00:00: mouth (two) Medical times Branch daily. busPIRone 2020-0 Yes [id number] 15mg Take 1 [facility] 15 mg 1-13 tablet by ity of tablet 00:00: mouth [place] (two) Medical times Branch daily. busPIRone 2020-0 Yes [id number] 15mg Take 1 [facility] 15 mg 1-13 tablet by ity of tablet 00:00: mouth 2 [place] (two) Medical times Branch daily. busPIRone 2020-0 Yes [id number] 15mg Take 1 [facility] 15 mg 1-13 tablet by ity of tablet 00:00: mouth 2 [place] (two) Medical times Branch daily. busPIRone 2020-0 Yes [id number] 15mg Take 1 [facility] 15 mg 1-13 tablet by ity of tablet 00:00: mouth [place] (two) Medical times Branch daily. amantadine 2018-07 Yes [id number] 200mg Take 20 mL [facility] HCl 50 mg/5 0-18 by mouth 2 it y of mL solution 00:00: (two) [place] 00 times Medical daily. Branch amantadine 2018-07 Yes [id number] 200mg Take 20 mL [facility] HCl 50 mg/5 0-18 by mouth 2 it y of mL solution 00:00: (two) [place] 00 times Medical daily. Branch amantadine 2018- Yes [id number] 200mg Take 20 mL [facility] HCl 50 mg/5 0-18 by mouth 2 it y of mL solution 00:00: (two) [place] 00 times Medical daily. Branch amantadine 2018-07 Yes [id number] 200mg Take 20 mL [facility] HCl 50 mg/5 0-18 by mouth 2 it y of mL solution 00:00: (two) [place] 00 times Medical daily. Branch amantadine 2018- Yes [id number] 200mg Take 20 mL [facility] HCl 50 mg/5 0-18 by mouth 2 it y of mL solution 00:00: (two) [place] 00 times Medical daily. Branch amantadine 2018- Yes [id number] 200mg Take 20 mL [facility] HCl 50 mg/5 0-18 by mouth 2 it y of mL solution 00:00: (two) [place] 00 times Medical daily. Branch amantadine 2018- Yes [id number] 200mg Take 20 mL [facility] HCl 50 mg/5 0-18 by mouth 2 it y of mL solution 00:00: (two) [place] 00 times Medical daily. Branch amantadine 2018- Yes [id number] 200mg Take 20 mL [facility] HCl 50 mg/5 0-18 by mouth 2 it y of mL solution 00:00: (two) [place] 00 times Medical daily. Branch amantadine 2018- Yes [id number] 200mg Take 20 mL [facility] HCl 50 mg/5 0-18 by mouth 2 it y of mL solution 00:00: (two) [place] 00 times Medical daily. Branch amantadine 2018- Yes [id number] 200mg Take 20 mL [facility] HCl 50 mg/5 0-18 by mouth 2 it y of mL solution 00:00: (two) [place] 00 times Medical daily. Branch amantadine 2018- Yes [id number] 200mg Take 20 mL [facility] HCl 50 mg/5 0-18 by mouth 2 it y of mL solution 00:00: (two) [place] 00 times Medical daily. Branch amantadine 2018- Yes [id number] 200mg Take 20 mL [facility] HCl 50 mg/5 0-18 by mouth 2 it y of mL solution 00:00: (two) [place] 00 times Medical daily. Branch amantadine 2018- Yes [id number] 200mg Take 20 mL [facility] HCl 50 mg/5 0-18 by mouth 2 it y of mL solution 00:00: (two) [place] 00 times Medical daily. Branch amantadine 2018- Yes [id number] 200mg Take 20 mL [facility] HCl 50 mg/5 0-18 by mouth 2 it y of mL solution 00:00: (two) [place] 00 times Medical daily. Branch amantadine 2018- Yes [id number] 200mg Take 20 mL [facility] HCl 50 mg/5 0-18 by mouth 2 it y of mL solution 00:00: (two) [place] 00 times Medical daily. Branch amantadine 2018- Yes [id number] 200mg Take 20 mL [facility] HCl 50 mg/5 0-18 by mouth 2 it y of mL solution 00:00: (two) [place] 00 times Medical daily. Branch amantadine 2018-07 Yes [id number] 200mg Take 20 mL [facility] HCl 50 mg/5 0-18 by mouth 2 it y of mL solution 00:00: (two) [place] 00 times Medical daily. Branch amantadine 2018-07- No [id number] 200mg Take 20 mL [facility] HCl 50 mg/5 0-18 12-05 by mouth 2 i ty of mL solution 00:00: 00:[place] (two[place] 00 :[place] times Medical daily. Branch amantadine 2018-07- No [id number] 200mg Take 20 mL [facility] HCl 50 mg/5 0-18 12-05 by mouth 2 i ty of mL solution 00:00: 00:00 (two[place] 00 :[place] times Medical daily. Branch amantadine 2018-07- No [id number] 200mg Take 20 mL [facility] HCl 50 mg/5 0-18 12-05 by mouth 2 i ty of mL solution 00:00: 00:00 (two[place] 00 :[place] times Medical daily. Branch risperiDONE 2018-07 Yes [id number] .5mg Take 2 [facility] (RISPERDAL) 0-16 tablets by it y of 0.25 mg 00:00: mouth 2 [place] tablet 00 (two) Medical times Branch daily. AM/PM risperiDONE 2018-07 Yes [id number] .5mg Take 2 [facility] (RISPERDAL) 0-16 tablets by it y of 0.25 mg 00:00: mouth 2 [place] tablet 00 (two) Medical times Branch daily. AM/PM risperiDONE 2018-07 Yes [id number] .5mg Take 2 [facility] (RISPERDAL) 0-16 tablets by it y of 0.25 mg 00:00: mouth 2 [place] tablet 00 (two) Medical times Branch daily. AM/PM risperiDONE 2018-07 Yes [id number] .5mg Take 2 [facility] (RISPERDAL) 0-16 tablets by it y of 0.25 mg 00:00: mouth 2 [place] tablet 00 (two) Medical times Branch daily. AM/PM risperiDONE 2018-07 Yes [id number] .5mg Take 2 [facility] (RISPERDAL) 0-16 tablets by it y of 0.25 mg 00:00: mouth 2 [place] tablet 00 (two) Medical times Branch daily. AM/PM risperiDONE 2018-07 Yes [id number] .5mg Take 2 [facility] (RISPERDAL) 0-16 tablets by it y of 0.25 mg 00:00: mouth 2 [place] tablet 00 (two) Medical times Branch daily. AM/PM risperiDONE 2018- Yes [id number] .5mg Take 2 [facility] (RISPERDAL) 0-16 tablets by it y of 0.25 mg 00:00: mouth 2 [place] tablet 00 (two) Medical times Branch daily. AM/PM amantadine 2018-07 Yes [id number] 200mg Take 2 [facility] HCl 100 mg 0-15 capsules ity o f capsule 00:00: by mouth 2 [place] 00 (two) Medical times Branch daily. ARIPiprazol 2018-07 Yes [id number] 2mg Take 1 [facility] e (ABILIFY) 0-15 tablet by ity of 2 mg tablet 00:00: mouth [place] 00 daily. Medical Branch amantadine 2018-07 Yes [id number] 200mg Take 2 [facility] HCl 100 mg 0-15 capsules ity o f capsule 00:00: by mouth 2 [place] 00 (two) Medical times Branch daily. ARIPiprazol 2018-07 Yes [id number] 2mg Take 1 [facility] e (ABILIFY) 0-15 tablet by ity of 2 mg tablet 00:00: mouth [place] 00 daily. Medical Branch amantadine 2018-07 Yes [id number] 200mg Take 2 [facility] HCl 100 mg 0-15 capsules ity o f capsule 00:00: by mouth 2 [place] 00 (two) Medical times Branch daily. ARIPiprazol 2018-07 Yes [id number] 2mg Take 1 [facility] e (ABILIFY) 0-15 tablet by ity of 2 mg tablet 00:00: mouth [place] 00 daily. Medical Branch amantadine 2018-07 Yes [id number] 200mg Take 2 [facility] HCl 100 mg 0-15 capsules ity o f capsule 00:00: by mouth 2 [place] 00 (two) Medical times Branch daily. amantadine 2018-07 Yes [id number] 200mg Take 2 [facility] HCl 100 mg 0-15 capsules ity o f capsule 00:00: by mouth 2 [place] 00 (two) Medical times Branch daily. amantadine 2018-07 Yes [id number] 200mg Take 2 [facility] HCl 100 mg 0-15 capsules ity o f capsule 00:00: by mouth 2 [place] 00 (two) Medical times Branch daily. amantadine 2018-07 Yes [id number] 200mg Take 2 [facility] HCl 100 mg 0-15 capsules ity o f capsule 00:00: by mouth 2 [place] 00 (two) Medical times Branch daily. amantadine 2018-07 Yes [id number] 200mg Take 2 [facility] HCl 100 mg 0-15 capsules ity o f capsule 00:00: by mouth 2 [place] 00 (two) Medical times Branch daily. amantadine 2018-07 Yes [id number] 200mg Take 2 [facility] HCl 100 mg 0-15 capsules ity o f capsule 00:00: by mouth 2 [place] 00 (two) Medical times Branch daily. amantadine 2018-07 Yes [id number] 200mg Take 2 [facility] HCl 100 mg 0-15 capsules ity o f capsule 00:00: by mouth 2 [place] 00 (two) Medical times Branch daily. amantadine 2018-07 Yes [id number] 200mg Take 2 [facility] HCl 100 mg 0-15 capsules ity o f capsule 00:00: by mouth 2 [place] 00 (two) Medical times Branch daily. amantadine 2018-07 Yes [id number] 200mg Take 2 [facility] HCl 100 mg 0-15 capsules ity o f capsule 00:00: by mouth 2 [place] 00 (two) Medical times Branch daily. amantadine 2018-07 Yes [id number] 200mg Take 2 [facility] HCl 100 mg 0-15 capsules ity o f capsule 00:00: by mouth 2 [place] 00 (two) Medical times Branch daily. amantadine 2018-07 Yes [id number] 200mg Take 2 [facility] HCl 100 mg 0-15 capsules ity o f capsule 00:00: by mouth 2 [place] 00 (two) Medical times Branch daily. amantadine 2018-07 Yes [id number] 200mg Take 2 [facility] HCl 100 mg 0-15 capsules ity o f capsule 00:00: by mouth 2 [place] 00 (two) Medical times Branch daily. amantadine 2018-07 Yes [id number] 200mg Take 2 [facility] HCl 100 mg 0-15 capsules ity o f capsule 00:00: by mouth 2 [place] 00 (two) Medical times Branch daily. amantadine 2018-07 Yes [id number] 200mg Take 2 [facility] HCl 100 mg 0-15 capsules ity o f capsule 00:00: by mouth 2 [place] 00 (two) Medical times Branch daily. amantadine 2018-07 Yes [id number] 200mg Take 2 [facility] HCl 100 mg 0-15 capsules ity o f capsule 00:00: by mouth 2 [place] 00 (two) Medical times Branch daily. amantadine 2018-07 Yes [id number] 200mg Take 2 [facility] HCl 100 mg 0-15 capsules ity o f capsule 00:00: by mouth 2 [place] 00 (two) Medical times Branch daily. amantadine 2018-07 Yes [id number] 200mg Take 2 [facility] HCl 100 mg 0-15 capsules ity o f capsule 00:00: by mouth 2 [place] 00 (two) Medical times Branch daily. amantadine 2018-07 Yes [id number] 200mg Take 2 [facility] HCl 100 mg 0-15 capsules ity o f capsule 00:00: by mouth 2 [place] 00 (two) Medical times Branch daily. ARIPiprazol 2018-07 Yes [id number] 2mg Take 1 [facility] e (ABILIFY) 0-15 tablet by ity of 2 mg tablet 00:00: mouth [place] 00 daily. Medical Branch amantadine 2018-07 Yes [id number] 200mg Take 2 [facility] HCl 100 mg 0-15 capsules ity o f capsule 00:00: by mouth 2 [place] 00 (two) Medical times Branch daily. ARIPiprazol 2018-07 Yes [id number] 2mg Take 1 [facility] e (ABILIFY) 0-15 tablet by ity of 2 mg tablet 00:00: mouth [place] 00 daily. Medical Branch amantadine 2018-07 Yes [id number] 200mg Take 2 [facility] HCl 100 mg 0-15 capsules ity o f capsule 00:00: by mouth 2 [place] 00 (two) Medical times Branch daily. ARIPiprazol 2018-07 Yes [id number] 2mg Take 1 [facility] e (ABILIFY) 0-15 tablet by ity of 2 mg tablet 00:00: mouth [place] 00 daily. Medical Branch amantadine 2018-07 Yes [id number] 200mg Take 2 [facility] HCl 100 mg 0-15 capsules ity o f capsule 00:00: by mouth 2 [place] 00 (two) Medical times Branch daily. ARIPiprazol 2018-07 Yes [id number] 2mg Take 1 [facility] e (ABILIFY) 0-15 tablet by ity of 2 mg tablet 00:00: mouth [place] 00 daily. Medical Branch amantadine 2018-07 Yes [id number] 200mg Take 2 [facility] HCl 100 mg 0-15 capsules ity o f capsule 00:00: by mouth 2 [place] 00 (two) Medical times Branch daily. ARIPiprazol 2018-07 Yes [id number] 2mg Take 1 [facility] e (ABILIFY) 0-15 tablet by ity of 2 mg tablet 00:00: mouth [place] 00 daily. Medical Branch amantadine 2018-07 Yes [id number] 200mg Take 2 [facility] HCl 100 mg 0-15 capsules ity o f capsule 00:00: by mouth 2 [place] 00 (two) Medical times Branch daily. ARIPiprazol 2018-07 Yes [id number] 2mg Take 1 [facility] e (ABILIFY) 0-15 tablet by ity of 2 mg tablet 00:00: mouth [place] 00 daily. Medical Branch amantadine 2018-07 Yes [id number] 200mg Take 2 [facility] HCl 100 mg 0-15 capsules ity o f capsule 00:00: by mouth 2 [place] 00 (two) Medical times Branch daily. ARIPiprazol 2018-07 Yes [id number] 2mg Take 1 [facility] e (ABILIFY) 0-15 tablet by ity of 2 mg tablet 00:00: mouth [place] 00 daily. Medical Branch amantadine 2018-07 Yes [id number] 200mg Take 2 [facility] HCl 100 mg 0-15 capsules ity o f capsule 00:00: by mouth 2 [place] 00 (two) Medical times Branch daily. ARIPiprazol 2018-07 Yes [id number] 2mg Take 1 [facility] e (ABILIFY) 0-15 tablet by ity of 2 mg tablet 00:00: mouth [place] 00 daily. Medical Branch amantadine 2018-07 Yes [id number] 200mg Take 2 [facility] HCl 100 mg 0-15 capsules ity o f capsule 00:00: by mouth 2 [place] 00 (two) Medical times Branch daily. ARIPiprazol 2018-07 Yes [id number] 2mg Take 1 [facility] e (ABILIFY) 0-15 tablet by ity of 2 mg tablet 00:00: mouth [place] 00 daily. Medical Branch amantadine 2018-07 Yes [id number] 200mg Take 2 [facility] HCl 100 mg 0-15 capsules ity o f capsule 00:00: by mouth 2 [place] 00 (two) Medical times Branch daily. ARIPiprazol 2018-07 Yes [id number] 2mg Take 1 [facility] e (ABILIFY) 0-15 tablet by ity of 2 mg tablet 00:00: mouth [place] 00 daily. Medical Branch amantadine 2018-07 Yes [id number] 200mg Take 2 [facility] HCl 100 mg 0-15 capsules ity o f capsule 00:00: by mouth 2 [place] 00 (two) Medical times Branch daily. ARIPiprazol 2018-07 Yes [id number] 2mg Take 1 [facility] e (ABILIFY) 0-15 tablet by ity of 2 mg tablet 00:00: mouth [place] 00 daily. [facility] Branch amantadine 2018-07 Yes [id number] 200mg Take 2 [facility] HCl 100 mg 0-15 capsules ity o f capsule 00:00: by mouth 2 [place] 00 (two) Medical times Branch daily. ARIPiprazol 2018-07 Yes [id number] 2mg Take 1 [facility] e (ABILIFY) 0-15 tablet by ity of 2 mg tablet 00:00: mouth [place] 00 daily. [facility] Branch amantadine 2018-07 Yes [id number] 200mg Take 2 [facility] HCl 100 mg 0-15 capsules ity o f capsule 00:00: by mouth 2 [place] 00 (two) Medical times Branch daily. ARIPiprazol 2018-07 Yes [id number] 2mg Take 1 [facility] e (ABILIFY) 0-15 tablet by ity of 2 mg tablet 00:00: mouth [place] 00 daily. [facility] Branch amantadine 2018-07 Yes [id number] 200mg Take 2 [facility] HCl 100 mg 0-15 capsules ity o f capsule 00:00: by mouth 2 [place] 00 (two) Medical times Branch daily. ARIPiprazol 2018-07 Yes [id number] 2mg Take 1 [facility] e (ABILIFY) 0-15 tablet by ity of 2 mg tablet 00:00: mouth [place] 00 daily. [facility] Branch amantadine 2018-07- No [id number] 200mg Take 2 [facility] HCl 100 mg 0-15 -31 capsules ity of capsule 00:00: 00:00 by mouth 2 [place] 00 :00 (two) Medical times Branch daily. amantadine 2018-07- No [id number] 200mg Take 2 [facility] HCl 100 mg 0-15 -31 capsules ity of capsule 00:00: 00:00 by mouth 2 [place] 00 :00 (two) Medical times Branch daily. amantadine 2018-07- No [id number] 200mg Take 2 [facility] HCl 100 mg 0-15 -31 capsules ity of capsule 00:00: 00:00 by mouth 2 [place] 00 :00 (two) Medical times Branch daily. amantadine 2018-07- No [id number] 200mg Take 2 [facility] HCl 100 mg 0-15 -31 capsules ity of capsule 00:00: 00:00 by mouth 2 [place] 00 :00 (two) Medical times Branch daily. ARIPiprazol 2018-07- No [id number] 2mg Take 1 [facility] e (ABILIFY) 0-15 12-05 tablet by it y of 2 mg tablet 00:00: 00:00 mouth [place] 00 :00 daily. Medical Branch ARIPiprazol 2018-07- No [id number] 2mg Take 1 [facility] e (ABILIFY) 0-15 12-05 tablet by it y of 2 mg tablet 00:00: 00:00 mouth [place] 00 :00 daily. Medical Branch ARIPiprazol 2018-07- No [id number] 2mg Take 1 [facility] e (ABILIFY) 0-15 12-05 tablet by it y of 2 mg tablet 00:00: 00:00 mouth [place] 00 :00 daily. Medical Branch SERTraline 2018-07- No [id number] 25mg Take 1 [facility] 25 mg 0-15 01-14 tablet by ity of tablet 00:00: 00:00 mouth [place] 00 :00 daily. Medical Branch XOPENEX HFA 2018-07 Yes [id number] INHALE 2 [facility] 45 0-11 PUFFS BY ity of mcg/actuati 00:00: MOUTH [place] on inhaler 00 EVERY 6 Medica l HOURS Branch NEEDED BEFORE EXERCISE OR FOR WHEEZING/S HORTNESS OF BREATH. XOPENEX HFA 2018-07 Yes [id number] INHALE 2 [facility] 45 0-11 PUFFS BY ity of mcg/actuati 00:00: MOUTH [place] on inhaler 00 EVERY 6 Medica l HOURS Branch NEEDED BEFORE EXERCISE OR FOR WHEEZING/S HORTNESS OF BREATH. XOPENEX HFA 2018- Yes [id number] INHALE 2 [facility] 45 0-11 PUFFS BY ity of mcg/actuati 00:00: MOUTH [place] on inhaler 00 EVERY 6 Medica l HOURS Branch NEEDED BEFORE EXERCISE OR FOR WHEEZING/S HORTNESS OF BREATH. XOPENEX HFA 2018-07 Yes [id number] INHALE 2 [facility] 45 0-11 PUFFS BY ity of mcg/actuati 00:00: MOUTH [place] on inhaler 00 EVERY 6 Medica l HOURS Branch NEEDED BEFORE EXERCISE OR FOR WHEEZING/S HORTNESS OF BREATH. XOPENEX HFA 2018-07 Yes [id number] INHALE 2 [facility] 45 0-11 PUFFS BY ity of mcg/actuati 00:00: MOUTH [place] on inhaler 00 EVERY 6 Medica l HOURS Branch NEEDED BEFORE EXERCISE OR FOR WHEEZING/S HORTNESS OF BREATH. XOPENEX HFA 2018-07 Yes [id number] INHALE 2 [facility] 45 0-11 PUFFS BY ity of mcg/actuati 00:00: MOUTH [place] on inhaler 00 EVERY 6 Medica l HOURS Branch NEEDED BEFORE EXERCISE OR FOR WHEEZING/S HORTNESS OF BREATH. XOPENEX HFA 2018- Yes [id number] INHALE 2 [facility] 45 0-11 PUFFS BY ity of mcg/actuati 00:00: MOUTH [place] on inhaler 00 EVERY 6 Medica l HOURS Branch NEEDED BEFORE EXERCISE OR FOR WHEEZING/S HORTNESS OF BREATH. XOPENEX HFA 2018- Yes [id number] INHALE 2 [facility] 45 0-11 PUFFS BY ity of mcg/actuati 00:00: MOUTH [place] on inhaler 00 EVERY 6 Medica l HOURS Branch NEEDED BEFORE EXERCISE OR FOR WHEEZING/S HORTNESS OF BREATH. XOPENEX HFA 2018- Yes [id number] INHALE 2 [facility] 45 0-11 PUFFS BY ity of mcg/actuati 00:00: MOUTH [place] on inhaler 00 EVERY 6 Medica l HOURS Branch NEEDED BEFORE EXERCISE OR FOR WHEEZING/S HORTNESS OF BREATH. XOPENEX HFA 2018-07 Yes [id number] INHALE 2 [facility] 45 0-11 PUFFS BY ity of mcg/actuati 00:00: MOUTH [place] on inhaler 00 EVERY 6 Medica l HOURS Branch NEEDED BEFORE EXERCISE OR FOR WHEEZING/S HORTNESS OF BREATH. XOPENEX HFA 2018-07 Yes [id number] INHALE 2 [facility] 45 0-11 PUFFS BY ity of mcg/actuati 00:00: MOUTH [place] on inhaler 00 EVERY 6 Medica l HOURS Branch NEEDED BEFORE EXERCISE OR FOR WHEEZING/S HORTNESS OF BREATH. XOPENEX HFA 2018-07 Yes [id number] INHALE 2 [facility] 45 0-11 PUFFS BY ity of mcg/actuati 00:00: MOUTH [place] on inhaler 00 EVERY 6 Medica l HOURS Branch NEEDED BEFORE EXERCISE OR FOR WHEEZING/S HORTNESS OF BREATH. XOPENEX HFA 2018-07 Yes [id number] INHALE 2 [facility] 45 0-11 PUFFS BY ity of mcg/actuati 00:00: MOUTH [place] on inhaler 00 EVERY 6 Medica l HOURS Branch NEEDED BEFORE EXERCISE OR FOR WHEEZING/S HORTNESS OF BREATH. XOPENEX HFA 2018-07 Yes [id number] INHALE 2 [facility] 45 0-11 PUFFS BY ity of mcg/actuati 00:00: MOUTH [place] on inhaler 00 EVERY 6 Medica l HOURS Branch NEEDED BEFORE EXERCISE OR FOR WHEEZING/S HORTNESS OF BREATH. XOPENEX HFA 2018-07 Yes [id number] INHALE 2 [facility] 45 0-11 PUFFS BY ity of mcg/actuati 00:00: MOUTH [place] on inhaler 00 EVERY 6 Medica l HOURS Branch NEEDED BEFORE EXERCISE OR FOR WHEEZING/S HORTNESS OF BREATH. XOPENEX HFA 2018-07 Yes [id number] INHALE 2 [facility] 45 0-11 PUFFS BY ity of mcg/actuati 00:00: MOUTH [place] on inhaler 00 EVERY 6 Medica l HOURS Branch NEEDED BEFORE EXERCISE OR FOR WHEEZING/S HORTNESS OF BREATH. XOPENEX HFA 2018-07 Yes [id number] INHALE 2 [facility] 45 0-11 PUFFS BY ity of mcg/actuati 00:00: MOUTH [place] on inhaler 00 EVERY 6 Medica l HOURS Branch NEEDED BEFORE EXERCISE OR FOR WHEEZING/S HORTNESS OF BREATH. XOPENEX HFA 2018-07 Yes [id number] INHALE 2 [facility] 45 0-11 PUFFS BY ity of mcg/actuati 00:00: MOUTH [place] on inhaler 00 EVERY 6 Medica l HOURS Branch NEEDED BEFORE EXERCISE OR FOR WHEEZING/S HORTNESS OF BREATH. XOPENEX HFA 2018-07 Yes [id number] INHALE 2 [facility] 45 0-11 PUFFS BY ity of mcg/actuati 00:00: MOUTH [place] on inhaler 00 EVERY 6 Medica l HOURS Branch NEEDED BEFORE EXERCISE OR FOR WHEEZING/S HORTNESS OF BREATH. XOPENEX HFA 2018-07 Yes [id number] INHALE 2 [facility] 45 0-11 PUFFS BY ity of mcg/actuati 00:00: MOUTH [place] on inhaler 00 EVERY 6 Medica l HOURS Branch NEEDED BEFORE EXERCISE OR FOR WHEEZING/S HORTNESS OF BREATH. XOPENEX HFA 2018-07 Yes [id number] INHALE 2 [facility] 45 0-11 PUFFS BY ity of mcg/actuati 00:00: MOUTH [place] on inhaler 00 EVERY 6 Medica l HOURS Branch NEEDED BEFORE EXERCISE OR FOR WHEEZING/S HORTNESS OF BREATH. XOPENEX HFA 2018-07 Yes [id number] INHALE 2 [facility] 45 0-11 PUFFS BY ity of mcg/actuati 00:00: MOUTH [place] on inhaler 00 EVERY 6 Medica l HOURS Branch NEEDED BEFORE EXERCISE OR FOR WHEEZING/S HORTNESS OF BREATH. XOPENEX HFA 2018-07 Yes [id number] INHALE 2 [facility] 45 0-11 PUFFS BY ity of mcg/actuati 00:00: MOUTH [place] on inhaler 00 EVERY 6 Medica l HOURS Branch NEEDED BEFORE EXERCISE OR FOR WHEEZING/S HORTNESS OF BREATH. XOPENEX HFA 2018-07 Yes [id number] INHALE 2 [facility] 45 0-11 PUFFS BY ity of mcg/actuati 00:00: MOUTH [place] on inhaler 00 EVERY 6 Medica l HOURS Branch NEEDED BEFORE EXERCISE OR FOR WHEEZING/S HORTNESS OF BREATH. XOPENEX HFA 2018-07 2022- No [id number] INHALE 2 [facility] 45 0-11 12-29 PUFFS BY ity of mcg/actuati 00:00: 00:00 MOUTH [place] on inhaler 00 :00 EVERY 6 Medica l HOURS Branch NEEDED BEFORE EXERCISE OR FOR WHEEZING/S HORTNESS OF BREATH. XOPENEX HFA 2018-07- No [id number] INHALE 2 [facility] 45 0-11 12-29 PUFFS BY ity of mcg/actuati 00:00: 00:00 MOUTH [place] on inhaler 00 :00 EVERY 6 Medica l HOURS Branch NEEDED BEFORE EXERCISE OR FOR WHEEZING/S HORTNESS OF BREATH. fluticasone 2018-07 Yes [id number] 2{puff} Inhale 2 [facility] propionate 0-07 Puffs 2 ity of (FLOVENT 00:00: (two) [place] HFA) 110 00 times Medical mcg/actuati daily. Branch on inhaler fluticasone 2018-07 Yes [id number] 2{puff} Inhale 2 [facility] propionate 0-07 Puffs 2 ity of (FLOVENT 00:00: ([facility]) [place] HFA) 110 00 times Medical mcg/actuati daily. Branch on inhaler fluticasone 2018-07 Yes [id number] 2{puff} Inhale 2 [facility] propionate 0-07 Puffs 2 ity of (FLOVENT 00:00: (two) [place] HFA) 110 00 times Medical mcg/actuati daily. Branch on inhaler fluticasone 2018-07 Yes [id number] 2{puff} Inhale 2 [facility] propionate 0-07 Puffs 2 ity of (FLOVENT 00:00: ([facility]) [place] HFA) 110 00 times Medical mcg/actuati daily. Branch on inhaler fluticasone 2018-07 Yes [id number] 2{puff} Inhale 2 [facility] propionate 0-07 Puffs 2 ity of (FLOVENT 00:00: (two) [place] HFA) 110 00 times Medical mcg/actuati daily. Branch on inhaler fluticasone 2018-07 Yes [id number] 2{puff} Inhale 2 [facility] propionate 0-07 Puffs 2 ity of (FLOVENT 00:00: (two) [place] HFA) 110 00 times Medical mcg/actuati daily. Branch on inhaler fluticasone 2018-07 Yes [id number] 2{puff} Inhale 2 [facility] propionate 0-07 Puffs 2 ity of (FLOVENT 00:00: (two) [place] HFA) 110 00 times Medical mcg/actuati daily. Branch on inhaler fluticasone 2018-07 Yes [id number] 2{puff} Inhale 2 [facility] propionate 0-07 Puffs 2 ity of (FLOVENT 00:00: ([facility]) [facility]) 110 00 times Medical mcg/actuati daily. Branch on inhaler fluticasone 2018-07 Yes [id number] 2{puff} Inhale 2 [facility] propionate 0-07 Puffs 2 ity of (FLOVENT 00:00: ([facility]) [facility]) 110 00 times Medical mcg/actuati daily. Branch on inhaler fluticasone 2018-07 Yes [id number] 2{puff} Inhale 2 [facility] propionate 0-07 Puffs 2 ity of (FLOVENT 00:00: ([facility]) 110 00 times Medical mcg/actuati daily. Branch on inhaler fluticasone 2018-07 Yes [id number] 2{puff} Inhale 2 [facility] propionate 0-07 Puffs 2 ity of (FLOVENT 00:00: ([facility]) 110 00 times Medical mcg/actuati daily. Branch on inhaler fluticasone 2018-07 Yes [id number] 2{puff} Inhale 2 [facility] propionate 0-07 Puffs 2 ity of (FLOVENT 00:00: ([facility]) 110 00 times Medical mcg/actuati daily. Branch on inhaler fluticasone 2018-07 Yes [id number] 2{puff} Inhale 2 [facility] propionate 0-07 Puffs 2 ity of (FLOVENT 00:00: ([facility]) [facility]) 110 00 times Medical mcg/actuati daily. Branch on inhaler fluticasone 2018-07 Yes [id number] 2{puff} Inhale 2 [facility] propionate 0-07 Puffs 2 ity of (FLOVENT 00:00: ([facility]) [facility]) 110 00 times Medical mcg/actuati daily. Branch on inhaler fluticasone 2018-07 Yes [id number] 2{puff} Inhale 2 [facility] propionate 0-07 Puffs 2 ity of (FLOVENT 00:00: ([facility]) [facility]) 110 00 times Medical mcg/actuati daily. Branch on inhaler fluticasone 2018-07 Yes [id number] 2{puff} Inhale 2 [facility] propionate 0-07 Puffs 2 ity of (FLOVENT 00:00: ([facility]) 110 00 times Medical mcg/actuati daily. Branch on inhaler fluticasone 2018-07 Yes [id number] 2{puff} Inhale 2 [facility] propionate 0-07 Puffs 2 ity of (FLOVENT 00:00: ([facility]) 110 00 times Medical mcg/actuati daily. Branch on inhaler fluticasone 2018-07- No [id number] 2{puff} Inhale 2 [facility] propionate 0-07 12-05 Puffs 2 ity o f (FLOVENT 00:00: 00:00 ([facility]) 110 00 :00 times Medical mcg/actuati daily. Branch on inhaler fluticasone 2018-07- No [id number] 2{puff} Inhale 2 [facility] propionate 0-07 12-05 Puffs 2 ity o f (FLOVENT 00:00: 00:00 ([facility]) [facility]) 110 00 :00 times Medical mcg/actuati daily. Branch on inhaler fluticasone 2018-07- No [id number] 2{puff} Inhale 2 [facility] propionate 0-07 12-05 Puffs 2 ity o f (FLOVENT 00:00: 00:00 ([facility]) 110 00 :00 times Medical mcg/actuati daily. Branch on inhaler lisdexamfet Yes [id number] 40mg Take 1 [facility] amine 40 mg 9-09 capsule by it y of capsule 00:00: mouth [place] 00 every Medical morning. Branch lisdexamfet Yes [id number] 40mg Take 1 [facility] amine 40 mg 9-09 capsule by it y of capsule 00:00: mouth [place] 00 every Medical morning. Branch lisdexamfet Yes [id number] 40mg Take 1 [facility] amine 40 mg 9-09 capsule by it y of capsule 00:00: mouth [place] 00 every Medical morning. [place] lisdexamfet Yes [id number] 40mg Take 1 [facility] amine 40 mg 9-09 capsule by it y of capsule 00:00: mouth [place] 00 every Medical morning. [place] lisdexamfet Yes [id number] 40mg Take 1 [facility] amine 40 mg 9-09 capsule by it y of capsule 00:00: mouth [place] 00 every Medical morning. Branch lisdexamfet 2019-0 Yes [id number] 40mg Take 1 [facility] amine 40 mg 9-09 capsule by it y of capsule 00:00: mouth [place] 00 every Medical morning. Branch lisdexamfet 2019-0 Yes [id number] 40mg Take 1 [facility] amine 40 mg 9-09 capsule by it y of capsule 00:00: mouth [place] 00 every Medical morning. Branch lisdexamfet 2019-0 Yes [id number] 40mg Take 1 [facility] amine 40 mg 9-09 capsule by it y of capsule 00:00: mouth [place] 00 every Medical morning. Branch lisdexamfet 2019-0 Yes [id number] 40mg Take 1 [facility] amine 40 mg 9-09 capsule by it y of capsule 00:00: mouth [place] 00 every Medical morning. Branch lisdexamfet 2019-0 Yes [id number] 40mg Take 1 [facility] amine 40 mg 9-09 capsule by it y of capsule 00:00: mouth [place] 00 every Medical morning. Branch lisdexamfet 2019-0 Yes [id number] 40mg Take 1 [facility] amine 40 mg 9-09 capsule by it y of capsule 00:00: mouth [place] 00 every Medical morning. Branch lisdexamfet 2019-0 Yes [id number] 40mg Take 1 [facility] amine 40 mg 9-09 capsule by it y of capsule 00:00: mouth [place] 00 every Medical morning. Branch lisdexamfet 2019-0 Yes [id number] 40mg Take 1 [facility] amine 40 mg 9-09 capsule by it y of capsule 00:00: mouth [place] 00 every Medical morning. Branch lisdexamfet 2019-0 Yes [id number] 40mg Take 1 [facility] amine 40 mg 9-09 capsule by it y of capsule 00:00: mouth [place] 00 every Medical morning. Branch lisdexamfet 2019-0 Yes [id number] 40mg Take 1 [facility] amine 40 mg 9-09 capsule by it y of capsule 00:00: mouth [place] 00 every Medical morning. Branch lisdexamfet 2019-0 Yes [id number] 40mg Take 1 [facility] amine 40 mg 9-09 capsule by it y of capsule 00:00: mouth [place] 00 every Medical morning. Branch lisdexamfet 2019-0 Yes [id number] 40mg Take 1 [facility] amine 40 mg 9-09 capsule by it y of capsule 00:00: mouth [place] 00 every Medical morning. Branch lisdexamfet 2019-0 Yes [id number] 40mg Take 1 [facility] amine 40 mg 9-09 capsule by it y of capsule 00:00: mouth [place] 00 every Medical morning. Branch lisdexamfet 2019-0 Yes [id number] 40mg Take 1 [facility] amine 40 mg 9-09 capsule by it y of capsule 00:00: mouth [place] 00 every Medical morning. Branch lisdexamfet 2019-0 Yes [id number] 40mg Take 1 [facility] amine 40 mg 9-09 capsule by it y of capsule 00:00: mouth [place] 00 every Medical morning. Branch lisdexamfet 2019-0 Yes [id number] 40mg Take 1 [facility] amine 40 mg 9-09 capsule by it y of capsule 00:00: mouth [place] 00 every Medical morning. Branch lisdexamfet 2019-0 Yes [id number] 40mg Take 1 [facility] amine 40 mg 9-09 capsule by it y of capsule 00:00: mouth [place] 00 every Medical morning. Branch lisdexamfet 2019-0 Yes [id number] 40mg Take 1 [facility] amine 40 mg 9-09 capsule by it y of capsule 00:00: mouth [place] 00 every Medical morning. Branch lisdexamfet 2019-0 Yes [id number] 40mg Take 1 [facility] amine 40 mg 9-09 capsule by it y of capsule 00:00: mouth [place] 00 every Medical morning. Branch lisdexamfet 2019-0 Yes [id number] 40mg Take 1 [facility] amine 40 mg 9-09 capsule by it y of capsule 00:00: mouth [place] 00 every Medical morning. Branch lisdexamfet 2019-0 Yes [id number] 40mg Take 1 [facility] amine 40 mg 9-09 capsule by it y of capsule 00:00: mouth [place] 00 every Medical morning. Branch lisdexamfet 2019-0 Yes [id number] 40mg Take 1 [facility] amine 40 mg 9-09 capsule by it y of capsule 00:00: mouth [place] 00 every Medical morning. Branch lisdexamfet 2019-0 Yes [id number] 40mg Take 1 [facility] amine 40 mg 9-09 capsule by it y of capsule 00:00: mouth [place] 00 every Medical morning. Branch lisdexamfet 2019-0 Yes [id number] 40mg Take 1 [facility] amine 40 mg 9-09 capsule by it y of capsule 00:00: mouth [place] 00 every Medical morning. Branch lisdexamfet 2019-0 Yes [id number] 40mg Take 1 [facility] amine 40 mg 9-09 capsule by it y of capsule 00:00: mouth [place] 00 every Medical morning. Branch lisdexamfet 2019-0 Yes [id number] 40mg Take 1 [facility] amine 40 mg 9-09 capsule by it y of capsule 00:00: mouth [place] 00 every Medical morning. Branch lisdexamfet 2019-0 Yes [id number] 40mg Take 1 [facility] amine 40 mg 9-09 capsule by it y of capsule 00:00: mouth [place] 00 every Medical morning. Branch lisdexamfet 2019-0 Yes [id number] 40mg Take 1 [facility] amine 40 mg 9-09 capsule by it y of capsule 00:00: mouth [place] 00 every Medical morning. Branch lisdexamfet 2019-0 Yes [id number] 40mg Take 1 [facility] amine 40 mg 9-09 capsule by it y of capsule 00:00: mouth [place] 00 every Medical morning. Branch lisdexamfet 2019-0 Yes [id number] 40mg Take 1 [facility] amine 40 mg 9-09 capsule by it y of capsule 00:00: mouth [place] 00 every Medical morning. Branch lisdexamfet 2019-0 Yes [id number] 40mg Take 1 [facility] amine 40 mg 9-09 capsule by it y of capsule 00:00: mouth [place] 00 every Medical morning. Branch lisdexamfet 2019-0 Yes [id number] 40mg Take 1 [facility] amine 40 mg 9-09 capsule by it y of capsule 00:00: mouth [place] 00 every Medical morning. Branch lisdexamfet 2019-0 Yes [id number] 40mg Take 1 [facility] amine 40 mg 9-09 capsule by it y of capsule 00:00: mouth [place] 00 every Medical morning. Branch lisdexamfet 2019-0 Yes [id number] 40mg Take 1 [facility] amine 40 mg 9-09 capsule by it y of capsule 00:00: mouth [place] 00 every Medical morning. Branch lisdexamfet 2019-0 Yes [id number] 40mg Take 1 [facility] amine 40 mg 9-09 capsule by it y of capsule 00:00: mouth [place] 00 every Medical morning. Branch lisdexamfet 2019-0 Yes [id number] 40mg Take 1 [facility] amine 40 mg 9-09 capsule by it y of capsule 00:00: mouth [place] 00 every Medical morning. Branch lisdexamfet 2019-0 Yes [id number] 40mg Take 1 [facility] amine 40 mg 9-09 capsule by it y of capsule 00:00: mouth [place] 00 every Medical morning. Branch lisdexamfet 2019-0 Yes [id number] 40mg Take 1 [facility] amine 40 mg 9-09 capsule by it y of capsule 00:00: mouth [place] 00 every Medical morning. Branch lisdexamfet 2019-0 Yes [id number] 40mg Take 1 [facility] amine 40 mg 9-09 capsule by it y of capsule 00:00: mouth [place] 00 every Medical morning. Branch lisdexamfet 2019-0 Yes [id number] 40mg Take 1 [facility] amine 40 mg 9-09 capsule by it y of capsule 00:00: mouth [place] 00 every Medical morning. Branch lisdexamfet 2019-0 Yes [id number] 40mg Take 1 [facility] amine 40 mg 9-09 capsule by it y of capsule 00:00: mouth [place] 00 every Medical morning. Branch lisdexamfet 2019-0 Yes [id number] 40mg Take 1 [facility] amine 40 mg 9-09 capsule by it y of capsule 00:00: mouth [place] 00 every Medical morning. Branch lisdexamfet 2019-0 Yes [id number] 40mg Take 1 [facility] amine 40 mg 9-09 capsule by it y of capsule 00:00: mouth [place] 00 every Medical morning. Branch lisdexamfet 2019-0 Yes [id number] 40mg Take 1 [facility] amine 40 mg 9-09 capsule by it y of capsule 00:00: mouth [place] 00 every Medical morning. Branch lisdexamfet 2019-0 Yes [id number] 40mg Take 1 [facility] amine 40 mg 9-09 capsule by it y of capsule 00:00: mouth [place] 00 every Medical morning. Branch lisdexamfet 2019-0 Yes [id number] 40mg Take 1 [facility] amine 40 mg 9-09 capsule by it y of capsule 00:00: mouth [place] 00 every Medical morning. Branch lisdexamfet 2019-0 Yes [id number] 40mg Take 1 [facility] amine 40 mg 9-09 capsule by it y of capsule 00:00: mouth [place] 00 every Medical morning. Branch lisdexamfet 2019-0 Yes [id number] 40mg Take 1 [facility] amine 40 mg 9-09 capsule by it y of capsule 00:00: mouth [place] 00 every Medical morning. Branch lisdexamfet 2019-0 Yes [id number] 40mg Take 1 [facility] amine 40 mg 9-09 capsule by it y of capsule 00:00: mouth [place] 00 every Medical morning. Branch lisdexamfet 2019-0 Yes [id number] 40mg Take 1 [facility] amine 40 mg 9-09 capsule by it y of capsule 00:00: mouth [place] 00 every Medical morning. Branch lisdexamfet 2019-0 Yes [id number] 40mg Take 1 [facility] amine 40 mg 9-09 capsule by it y of capsule 00:00: mouth [place] 00 every Medical morning. Branch lisdexamfet 2019-0 Yes [id number] 40mg Take 1 [facility] amine 40 mg 9-09 capsule by it y of capsule 00:00: mouth [place] 00 every Medical morning. Branch lisdexamfet 2019-0 Yes [id number] 40mg Take 1 [facility] amine 40 mg 9-09 capsule by it y of capsule 00:00: mouth [place] 00 every Medical morning. Branch lisdexamfet 2019-0 Yes [id number] 40mg Take 1 [facility] amine 40 mg 9-09 capsule by it y of capsule 00:00: mouth [place] 00 every Medical morning. Branch lisdexamfet 2018-0 Yes [id number] 40mg Take 1 [facility] amine 40 mg 9-09 capsule by it y of capsule 00:00: mouth [place] 00 every Medical morning. Branch lisdexamfet 2019-0 Yes [id number] 40mg Take 1 [facility] amine 40 mg 9-09 capsule by it y of capsule 00:00: mouth [place] 00 every Medical morning. Branch lisdexamfet 2019-0 Yes [id number] 40mg Take 1 [facility] amine 40 mg 9-09 capsule by it y of capsule 00:00: mouth [place] 00 every Medical morning. Branch lisdexamfet 2019-0 Yes [id number] 40mg Take 1 [facility] amine 40 mg 9-09 capsule by it y of capsule 00:00: mouth [place] 00 every Medical morning. Branch lisdexamfet 2019-0 Yes [id number] 40mg Take 1 [facility] amine 40 mg 9-09 capsule by it y of capsule 00:00: mouth [place] 00 every Medical morning. Branch lisdexamfet 2019-0 Yes [id number] 40mg Take 1 [facility] amine 40 mg 9-09 capsule by it y of capsule 00:00: mouth [place] 00 every Medical morning. Branch lisdexamfet 2019-0 Yes [id number] 40mg Take 1 [facility] amine 40 mg 9-09 capsule by it y of capsule 00:00: mouth [place] 00 every Medical morning. Branch lisdexamfet 2019-0 Yes [id number] 40mg Take 1 [facility] amine 40 mg 9-09 capsule by it y of capsule 00:00: mouth [place] 00 every Medical morning. Branch lisdexamfet 2019-0 Yes [id number] 40mg Take 1 [facility] amine 40 mg 9-09 capsule by it y of capsule 00:00: mouth [place] 00 every Medical morning. Branch lisdexamfet 2019-0 Yes [id number] 40mg Take 1 [facility] amine 40 mg 9-09 capsule by it y of capsule 00:00: mouth [place] 00 every Medical morning. Branch lisdexamfet 2019-0 Yes [id number] 40mg Take 1 [facility] amine 40 mg 9-09 capsule by it y of capsule 00:00: mouth [place] 00 every Medical morning. Branch lisdexamfet 2019-0 Yes [id number] 40mg Take 1 [facility] amine 40 mg 9-09 capsule by it y of capsule 00:00: mouth [place] 00 every Medical morning. Branch lisdexamfet 2019-0 Yes [id number] 40mg Take 1 [facility] amine 40 mg 9-09 capsule by it y of capsule 00:00: mouth [place] 00 every Medical morning. Branch lisdexamfet 2019-0 Yes [id number] 40mg Take 1 [facility] amine 40 mg 9-09 capsule by it y of capsule 00:00: mouth [place] 00 every Medical morning. Branch lisdexamfet 2019-0 Yes [id number] 40mg Take 1 [facility] amine 40 mg 9-09 capsule by it y of capsule 00:00: mouth [place] 00 every Medical morning. Branch lisdexamfet 2019-0 Yes [id number] 40mg Take 1 [facility] amine 40 mg 9-09 capsule by it y of capsule 00:00: mouth [place] 00 every Medical morning. Branch lisdexamfet 2019-0 Yes [id number] 40mg Take 1 [facility] amine 40 mg 9-09 capsule by it y of capsule 00:00: mouth [place] 00 every Medical morning. Branch lisdexamfet 2019-0 Yes [id number] 40mg Take 1 [facility] amine 40 mg 9-09 capsule by it y of capsule 00:00: mouth [place] 00 every Medical morning. Branch lisdexamfet 2019-0 Yes [id number] 40mg Take 1 [facility] amine 40 mg 9-09 capsule by it y of capsule 00:00: mouth [place] 00 every Medical morning. Branch lisdexamfet 2019-0 Yes [id number] 40mg Take 1 [facility] amine 40 mg 9-09 capsule by it y of capsule 00:00: mouth [place] 00 every Medical morning. Branch lisdexamfet 2019-0 Yes [id number] 40mg Take 1 [facility] amine 40 mg 9-09 capsule by it y of capsule 00:00: mouth [place] 00 every Medical morning. Branch lisdexamfet 2019-0 Yes [id number] 40mg Take 1 [facility] amine 40 mg 9-09 capsule by it y of capsule 00:00: mouth [place] 00 every Medical morning. Branch lisdexamfet 2019-0 Yes [id number] 40mg Take 1 [facility] amine 40 mg 9-09 capsule by it y of capsule 00:00: mouth [place] 00 every Medical morning. Branch lisdexamfet 2019-0 Yes [id number] 40mg Take 1 [facility] amine 40 mg 9-09 capsule by it y of capsule 00:00: mouth [place] 00 every Medical morning. Branch lisdexamfet 2019-0 Yes [id number] 40mg Take 1 [facility] amine 40 mg 9-09 capsule by it y of capsule 00:00: mouth [place] 00 every Medical morning. Branch lisdexamfet 2019-0 Yes [id number] 40mg Take 1 [facility] amine 40 mg 9-09 capsule by it y of capsule 00:00: mouth [place] 00 every Medical morning. Branch lisdexamfet 2019-0 Yes [id number] 40mg Take 1 [facility] amine 40 mg 9-09 capsule by it y of capsule 00:00: mouth [place] 00 every Medical morning. Branch lisdexamfet 2019-0 Yes [id number] 40mg Take 1 [facility] amine 40 mg 9-09 capsule by it y of capsule 00:00: mouth [place] 00 every Medical morning. Branch lisdexamfet 2019-0 Yes [id number] 40mg Take 1 [facility] amine 40 mg 9-09 capsule by it y of capsule 00:00: mouth [place] 00 every Medical morning. Branch lisdexamfet 2019-0 Yes [id number] 40mg Take 1 [facility] amine 40 mg 9-09 capsule by it y of capsule 00:00: mouth [place] 00 every Medical morning. Branch lisdexamfet 2019-0 Yes [id number] 40mg Take 1 [facility] amine 40 mg 9-09 capsule by it y of capsule 00:00: mouth [place] 00 every Medical morning. Branch lisdexamfet 2019-0 Yes [id number] 40mg Take 1 [facility] amine 40 mg 9-09 capsule by it y of capsule 00:00: mouth [place] 00 every Medical morning. Branch lisdexamfet 2019-0 Yes [id number] 40mg Take 1 [facility] amine 40 mg 9-09 capsule by it y of capsule 00:00: mouth [place] 00 every Medical morning. Branch lisdexamfet 2019-0 Yes [id number] 40mg Take 1 [facility] amine 40 mg 9-09 capsule by it y of capsule 00:00: mouth [place] 00 every Medical morning. Branch lisdexamfet 2019-0 Yes [id number] 40mg Take 1 [facility] amine 40 mg 9-09 capsule by it y of capsule 00:00: mouth [place] 00 every Medical morning. Branch lisdexamfet 2019-0 Yes [id number] 40mg Take 1 [facility] amine 40 mg 9-09 capsule by it y of capsule 00:00: mouth [place] 00 every Medical morning. Branch lisdexamfet 2019-0 Yes [id number] 40mg Take 1 [facility] amine 40 mg 9-09 capsule by it y of capsule 00:00: mouth [place] 00 every Medical morning. Branch lisdexamfet 2019-0 Yes [id number] 40mg Take 1 [facility] amine 40 mg 9-09 capsule by it y of capsule 00:00: mouth [place] 00 every Medical morning. Branch lisdexamfet 2019-0 Yes [id number] 40mg Take 1 [facility] amine 40 mg 9-09 capsule by it y of capsule 00:00: mouth [place] 00 every Medical morning. Branch lisdexamfet 2019-0 Yes [id number] 40mg Take 1 [facility] amine 40 mg 9-09 capsule by it y of capsule 00:00: mouth [place] 00 every Medical morning. Branch lisdexamfet 2019-0 Yes [id number] 40mg Take 1 [facility] amine 40 mg 9-09 capsule by it y of capsule 00:00: mouth [place] 00 every Medical morning. Branch lisdexamfet 2019-0 Yes [id number] 40mg Take 1 [facility] amine 40 mg 9-09 capsule by it y of capsule 00:00: mouth [place] 00 every Medical morning. Branch lisdexamfet 2019-0 Yes [id number] 40mg Take 1 [facility] amine 40 mg 9-09 capsule by it y of capsule 00:00: mouth [place] 00 every Medical morning. Branch lisdexamfet 2019-0 Yes [id number] 40mg Take 1 [facility] amine 40 mg 9-09 capsule by it y of capsule 00:00: mouth [place] 00 every Medical morning. Branch lisdexamfet 2019-0 Yes [id number] 40mg Take 1 [facility] amine 40 mg 9-09 capsule by it y of capsule 00:00: mouth [place] 00 every Medical morning. Branch lisdexamfet 2019-0 Yes [id number] 40mg Take 1 [facility] amine 40 mg 9-09 capsule by it y of capsule 00:00: mouth [place] 00 every Medical morning. Branch lisdexamfet 2019-0 Yes [id number] 40mg Take 1 [facility] amine 40 mg 9-09 capsule by it y of capsule 00:00: mouth [place] 00 every Medical morning. Branch lisdexamfet 2019-0 Yes [id number] 40mg Take 1 [facility] amine 40 mg 9-09 capsule by it y of capsule 00:00: mouth [place] 00 every Medical morning. Branch lisdexamfet 2019-0 Yes [id number] 40mg Take 1 [facility] amine 40 mg 9-09 capsule by it y of capsule 00:00: mouth [place] 00 every Medical morning. Branch lisdexamfet 2019-0 Yes [id number] 40mg Take 1 [facility] amine 40 mg 9-09 capsule by it y of capsule 00:00: mouth [place] 00 every Medical morning. Branch lisdexamfet 2019-0 Yes [id number] 40mg Take 1 [facility] amine 40 mg 9-09 capsule by it y of capsule 00:00: mouth [place] 00 every Medical morning. Branch lisdexamfet 2019-0 Yes [id number] 40mg Take 1 [facility] amine 40 mg 9-09 capsule by it y of capsule 00:00: mouth [place] 00 every Medical morning. Branch lisdexamfet 2019-0 Yes [id number] 40mg Take 1 [facility] amine 40 mg 9-09 capsule by it y of capsule 00:00: mouth [place] 00 every Medical morning. Branch lisdexamfet 2019-0 Yes [id number] 40mg Take 1 [facility] amine 40 mg 9-09 capsule by it y of capsule 00:00: mouth [place] 00 every Medical morning. Branch lisdexamfet 2019-0 Yes [id number] 40mg Take 1 [facility] amine 40 mg 9-09 capsule by it y of capsule 00:00: mouth [place] 00 every Medical morning. Branch lisdexamfet 2019-0 Yes [id number] 40mg Take 1 [facility] amine 40 mg 9-09 capsule by it y of capsule 00:00: mouth [place] 00 every Medical morning. Branch lisdexamfet 2019-0 Yes [id number] 40mg Take 1 [facility] amine 40 mg 9-09 capsule by it y of capsule 00:00: mouth [place] 00 every Medical morning. Branch lisdexamfet 2019-0 Yes [id number] 40mg Take 1 [facility] amine 40 mg 9-09 capsule by it y of capsule 00:00: mouth [place] 00 every Medical morning. Branch lisdexamfet 2019-0 Yes [id number] 40mg Take 1 [facility] amine 40 mg 9-09 capsule by it y of capsule 00:00: mouth [place] 00 every Medical morning. Branch lisdexamfet 2019-0 Yes [id number] 40mg Take 1 [facility] amine 40 mg 9-09 capsule by it y of capsule 00:00: mouth [place] 00 every Medical morning. Branch lisdexamfet 2019-0 Yes [id number] 40mg Take 1 [facility] amine 40 mg 9-09 capsule by it y of capsule 00:00: mouth [place] 00 every Medical morning. Branch lisdexamfet 2018-0 Yes [id number] 40mg Take 1 [facility] amine 40 mg 9-09 capsule by it y of capsule 00:00: mouth [place] 00 every Medical morning. Branch lisdexamfet 2018-0 Yes [id number] 40mg Take 1 [facility] amine 40 mg 9-09 capsule by it y of capsule 00:00: mouth [place] 00 every Medical morning. Branch lisdexamfet 2019-0 Yes [id number] 40mg Take 1 [facility] amine 40 mg 9-09 capsule by it y of capsule 00:00: mouth [place] 00 every Medical morning. Branch lisdexamfet 2019-0 Yes [id number] 40mg Take 1 [facility] amine 40 mg 9-09 capsule by it y of capsule 00:00: mouth [place] 00 every Medical morning. Branch lisdexamfet 2019-0 Yes [id number] 40mg Take 1 [facility] amine 40 mg 9-09 capsule by it y of capsule 00:00: mouth [place] 00 every Medical morning. Branch lisdexamfet 2019-0 Yes [id number] 40mg Take 1 [facility] amine 40 mg 9-09 capsule by it y of capsule 00:00: mouth [place] 00 every Medical morning. Branch lisdexamfet 2019-0 Yes [id number] 40mg Take 1 [facility] amine 40 mg 9-09 capsule by it y of capsule 00:00: mouth [place] 00 every Medical morning. Branch lisdexamfet 2019-0 Yes [id number] 40mg Take 1 [facility] amine 40 mg 9-09 capsule by it y of capsule 00:00: mouth [place] 00 every Medical morning. Branch lisdexamfet 2019-0 Yes [id number] 40mg Take 1 [facility] amine 40 mg 9-09 capsule by it y of capsule 00:00: mouth [place] 00 every Medical morning. Branch lisdexamfet 2019-0 Yes [id number] 40mg Take 1 [facility] amine 40 mg 9-09 capsule by it y of capsule 00:00: mouth [place] 00 every Medical morning. Branch lisdexamfet 2019-0 Yes [id number] 40mg Take 1 [facility] amine 40 mg 9-09 capsule by it y of capsule 00:00: mouth [place] 00 every Medical morning. Branch lisdexamfet 2019-0 Yes [id number] 40mg Take 1 [facility] amine 40 mg 9-09 capsule by it y of capsule 00:00: mouth [place] 00 every Medical morning. Branch lisdexamfet 2019-0 Yes [id number] 40mg Take 1 [facility] amine 40 mg 9-09 capsule by it y of capsule 00:00: mouth [place] 00 every Medical morning. Branch lisdexamfet 2019-0 Yes [id number] 40mg Take 1 [facility] amine 40 mg 9-09 capsule by it y of capsule 00:00: mouth [place] 00 every Medical morning. Branch lisdexamfet 2019-0 Yes [id number] 40mg Take 1 [facility] amine 40 mg 9-09 capsule by it y of capsule 00:00: mouth [place] 00 every Medical morning. Branch lisdexamfet 2019-0 Yes [id number] 40mg Take 1 [facility] amine 40 mg 9-09 capsule by it y of capsule 00:00: mouth [place] 00 every Medical morning. Branch lisdexamfet 2019-0 Yes [id number] 40mg Take 1 [facility] amine 40 mg 9-09 capsule by it y of capsule 00:00: mouth [place] 00 every Medical morning. Branch lisdexamfet 2019-0 Yes [id number] 40mg Take 1 [facility] amine 40 mg 9-09 capsule by it y of capsule 00:00: mouth [place] 00 every Medical morning. Branch lisdexamfet 2019-0 Yes [id number] 40mg Take 1 [facility] amine 40 mg 9-09 capsule by it y of capsule 00:00: mouth [place] 00 every Medical morning. Branch lisdexamfet 2019-0 Yes [id number] 40mg Take 1 [facility] amine 40 mg 9-09 capsule by it y of capsule 00:00: mouth [place] 00 every Medical morning. Branch lisdexamfet 2019-0 Yes [id number] 40mg Take 1 [facility] amine 40 mg 9-09 capsule by it y of capsule 00:00: mouth [place] 00 every Medical morning. Branch lisdexamfet 2019-0 Yes [id number] 40mg Take 1 [facility] amine 40 mg 9-09 capsule by it y of capsule 00:00: mouth [place] 00 every Medical morning. Branch lisdexamfet 2019-0 Yes [id number] 40mg Take 1 [facility] amine 40 mg 9-09 capsule by it y of capsule 00:00: mouth [place] 00 every Medical morning. Branch lisdexamfet 2019-0 Yes [id number] 40mg Take 1 [facility] amine 40 mg 9-09 capsule by it y of capsule 00:00: mouth [place] 00 every Medical morning. Branch lisdexamfet 2019-0 Yes [id number] 40mg Take 1 [facility] amine 40 mg 9-09 capsule by it y of capsule 00:00: mouth [place] 00 every Medical morning. Branch lisdexamfet 2019-0 Yes [id number] 40mg Take 1 [facility] amine 40 mg 9-09 capsule by it y of capsule 00:00: mouth [place] 00 every Medical morning. Branch lisdexamfet 2019-0 Yes [id number] 40mg Take 1 [facility] amine 40 mg 9-09 capsule by it y of capsule 00:00: mouth [place] 00 every Medical morning. Branch lisdexamfet 2019-0 Yes [id number] 40mg Take 1 [facility] amine 40 mg 9-09 capsule by it y of capsule 00:00: mouth [place] 00 every Medical morning. Branch lisdexamfet 2019-0 Yes [id number] 40mg Take 1 [facility] amine 40 mg 9-09 capsule by it y of capsule 00:00: mouth [place] 00 every Medical morning. Branch lisdexamfet 2019-0 Yes [id number] 40mg Take 1 [facility] amine 40 mg 9-09 capsule by it y of capsule 00:00: mouth [place] 00 every Medical morning. Branch lisdexamfet 2019-0 Yes [id number] 40mg Take 1 [facility] amine 40 mg 9-09 capsule by it y of capsule 00:00: mouth [place] 00 every Medical morning. Branch lisdexamfet 2019-0 Yes [id number] 40mg Take 1 [facility] amine 40 mg 9-09 capsule by it y of capsule 00:00: mouth [place] 00 every Medical morning. Branch lisdexamfet 2019-0 Yes [id number] 40mg Take 1 [facility] amine 40 mg 9-09 capsule by it y of capsule 00:00: mouth [place] 00 every Medical morning. Branch lisdexamfet 2019-0 Yes [id number] 40mg Take 1 [facility] amine 40 mg 9-09 capsule by it y of capsule 00:00: mouth [place] 00 every Medical morning. Branch lisdexamfet 2019-0 Yes [id number] 40mg Take 1 [facility] amine 40 mg 9-09 capsule by it y of capsule 00:00: mouth [place] 00 every Medical morning. Branch lisdexamfet 2019-0 Yes [id number] 40mg Take 1 [facility] amine 40 mg 9-09 capsule by it y of capsule 00:00: mouth [place] 00 every Medical morning. Branch lisdexamfet 2019-0 Yes [id number] 40mg Take 1 [facility] amine 40 mg 9-09 capsule by it y of capsule 00:00: mouth [place] 00 every Medical morning. Branch lisdexamfet 2019-0 Yes [id number] 40mg Take 1 [facility] amine 40 mg 9-09 capsule by it y of capsule 00:00: mouth [place] 00 every Medical morning. Branch lisdexamfet 2019-0 Yes [id number] 40mg Take 1 [facility] amine 40 mg 9-09 capsule by it y of capsule 00:00: mouth [place] 00 every Medical morning. Branch lisdexamfet 2019-0 Yes [id number] 40mg Take 1 [facility] amine 40 mg 9-09 capsule by it y of capsule 00:00: mouth [place] 00 every Medical morning. Branch lisdexamfet 2019-0 Yes [id number] 40mg Take 1 [facility] amine 40 mg 9-09 capsule by it y of capsule 00:00: mouth [place] 00 every Medical morning. Branch lisdexamfet 2019-0 Yes [id number] 40mg Take 1 [facility] amine 40 mg 9-09 capsule by it y of capsule 00:00: mouth [place] 00 every Medical morning. Branch lisdexamfet 2019-0 Yes [id number] 40mg Take 1 [facility] amine 40 mg 9-09 capsule by it y of capsule 00:00: mouth [place] 00 every Medical morning. Branch lisdexamfet 2019-0 Yes [id number] 40mg Take 1 [facility] amine 40 mg 9-09 capsule by it y of capsule 00:00: mouth [place] 00 every Medical morning. Branch lisdexamfet 2019-0 Yes [id number] 40mg Take 1 [facility] amine 40 mg 9-09 capsule by it y of capsule 00:00: mouth [place] 00 every Medical morning. Branch lisdexamfet 2019-0 Yes [id number] 40mg Take 1 [facility] amine 40 mg 9-09 capsule by it y of capsule 00:00: mouth [place] 00 every Medical morning. Branch lisdexamfet 2019-0 Yes [id number] 40mg Take 1 [facility] amine 40 mg 9-09 capsule by it y of capsule 00:00: mouth [place] 00 every Medical morning. Branch lisdexamfet 2019-0 Yes [id number] 40mg Take 1 [facility] amine 40 mg 9-09 capsule by it y of capsule 00:00: mouth [place] 00 every Medical morning. Branch lisdexamfet 2019-0 Yes [id number] 40mg Take 1 [facility] amine 40 mg 9-09 capsule by it y of capsule 00:00: mouth [place] 00 every Medical morning. Branch lisdexamfet 2019-0 Yes [id number] 40mg Take 1 [facility] amine 40 mg 9-09 capsule by it y of capsule 00:00: mouth [place] 00 every Medical morning. Branch lisdexamfet 2019-0 Yes [id number] 40mg Take 1 [facility] amine 40 mg 9-09 capsule by it y of capsule 00:00: mouth [place] 00 every Medical morning. Branch lisdexamfet 2019-0 Yes [id number] 40mg Take 1 [facility] amine 40 mg 9-09 capsule by it y of capsule 00:00: mouth [place] 00 every Medical morning. Branch lisdexamfet 2019-0 Yes [id number] 40mg Take 1 [facility] amine 40 mg 9-09 capsule by it y of capsule 00:00: mouth [place] 00 every Medical morning. Branch lisdexamfet 2019-0 Yes [id number] 40mg Take 1 [facility] amine 40 mg 9-09 capsule by it y of capsule 00:00: mouth [place] 00 every Medical morning. Branch lisdexamfet 2019-0 Yes [id number] 40mg Take 1 [facility] amine 40 mg 9-09 capsule by it y of capsule 00:00: mouth [place] 00 every Medical morning. Branch lisdexamfet 2019-0 Yes [id number] 40mg Take 1 [facility] amine 40 mg 9-09 capsule by it y of capsule 00:00: mouth [place] 00 every Medical morning. Branch lisdexamfet 2019-0 Yes [id number] 40mg Take 1 [facility] amine 40 mg 9-09 capsule by it y of capsule 00:00: mouth [place] 00 every Medical morning. Branch lisdexamfet 2019-0 Yes [id number] 40mg Take 1 [facility] amine 40 mg 9-09 capsule by it y of capsule 00:00: mouth [place] 00 every Medical morning. Branch lisdexamfet 2019-0 Yes [id number] 40mg Take 1 [facility] amine 40 mg 9-09 capsule by it y of capsule 00:00: mouth [place] 00 every Medical morning. Branch lisdexamfet 2019-0 Yes [id number] 40mg Take 1 [facility] amine 40 mg 9-09 capsule by it y of capsule 00:00: mouth [place] 00 every Medical morning. Branch lisdexamfet 2019-0 Yes [id number] 40mg Take 1 [facility] amine 40 mg 9-09 capsule by it y of capsule 00:00: mouth [place] 00 every Medical morning. Branch lisdexamfet 2018-0 Yes [id number] 40mg Take 1 [facility] amine 40 mg 9-09 capsule by it y of capsule 00:00: mouth [place] 00 every Medical morning. Branch lisdexamfet 2018-0 Yes [id number] 40mg Take 1 [facility] amine 40 mg 9-09 capsule by it y of capsule 00:00: mouth [place] 00 every Medical morning. Branch lisdexamfet 2019-0 Yes [id number] 40mg Take 1 [facility] amine 40 mg 9-09 capsule by it y of capsule 00:00: mouth [place] 00 every Medical morning. Branch lisdexamfet 2019-0 Yes [id number] 40mg Take 1 [facility] amine 40 mg 9-09 capsule by it y of capsule 00:00: mouth [place] 00 every Medical morning. Branch XOPENEX HFA 2019-0 Yes [id number] INHALE 2 [facility] 45 9-06 PUFFS BY ity of mcg/actuati 00:00: MOUTH [place] on inhaler 00 EVERY 6 Medica l HOURS Branch NEEDED BEFORE EXERCISE OR FOR WHEEZING/S HORTNESS OF BREATH. XOPENEX HFA 2019-0 Yes [id number] INHALE 2 [facility] 45 9-06 PUFFS BY ity of mcg/actuati 00:00: MOUTH [place] on inhaler 00 EVERY 6 Medica l HOURS Branch NEEDED BEFORE EXERCISE OR FOR WHEEZING/S HORTNESS OF BREATH. XOPENEX HFA 2018- Yes [id number] INHALE 2 [facility] 45 9-06 PUFFS BY ity of mcg/actuati 00:00: MOUTH [place] on inhaler 00 EVERY 6 Medica l HOURS Branch NEEDED BEFORE EXERCISE OR FOR WHEEZING/S HORTNESS OF BREATH. XOPENEX HFA 2018- Yes [id number] INHALE 2 [facility] 45 9-05 PUFFS BY ity of mcg/actuati 00:00: MOUTH [place] on inhaler 00 EVERY 6 Medica l HOURS Branch NEEDED BEFORE EXERCISE OR FOR WHEEZING/S HORTNESS OF BREATH. XOPENEX HFA 2019- No [id number] INHALE 2 [facility] 45 9-05 09-06 PUFFS BY ity of mcg/actuati 00:00: 00:00 MOUTH [place] inhaler 00 :00 EVERY 6 Medica l HOURS Branch NEEDED BEFORE EXERCISE OR FOR WHEEZING/S HORTNESS OF BREATH. XOPENEX HFA Yes [id number] INHALE 2 [facility] 45 8-15 PUFFS BY ity of mcg/actuati 00:00: MOUTH [place] on inhaler 00 EVERY 6 Medica l HOURS Branch NEEDED BEFORE EXERCISE OR FOR WHEEZING, SHORTNESS OF BREATH. XOPENEX HFA Yes [id number] INHALE 2 [facility] 45 8-15 PUFFS BY ity of mcg/actuati 00:00: MOUTH [place] on inhaler 00 EVERY 6 Medica l HOURS Branch NEEDED BEFORE EXERCISE OR FOR WHEEZING, SHORTNESS OF BREATH. XOPENEX HFA 2018- Yes [id number] INHALE 2 [facility] 45 8-15 PUFFS BY ity of mcg/actuati 00:00: MOUTH [place] on inhaler 00 EVERY 6 Medica l HOURS Branch NEEDED BEFORE EXERCISE OR FOR WHEEZING, SHORTNESS OF BREATH. XOPENEX HFA 2018- Yes [id number] INHALE 2 [facility] 45 8-15 PUFFS BY ity of mcg/actuati 00:00: MOUTH [place] on inhaler 00 EVERY 6 Medica l HOURS Branch NEEDED BEFORE EXERCISE OR FOR WHEEZING, SHORTNESS OF BREATH. XOPENEX HFA 2019- No [id number] INHALE 2 [facility] 45 8-15 09-04 PUFFS BY ity of mcg/actuati 00:00: 00:00 MOUTH [place] on inhaler 00 :00 EVERY 6 Medica l HOURS Branch NEEDED BEFORE EXERCISE OR FOR WHEEZING, SHORTNESS OF BREATH. amantadine 2018- Yes [id number] 200mg Take 2 [facility] HCl 100 mg 8-14 capsules ity o f capsule 00:00: by mouth 2 [place] 00 (two) Medical times Branch daily. SERTraline Yes [id number] 25mg Take 1 [facility] 25 mg 8-14 tablet by ity of tablet 00:00: mouth 00 daily. Medical Branch ARIPiprazol Yes [id number] 2mg Take 1 [facility] e (ABILIFY) 8-14 tablet by ity of 2 mg tablet 00:00: mouth 00 daily. Medical Branch busPIRone Yes [id number] 15mg Take 1 [facility] nivers 15 mg 8-14 tablet by ity of tablet 00:00: mouth 2 [place] 00 (two) Medical times Branch daily. risperiDONE Yes [id number] .25mg Take 1-2 [facility] (RISPERDAL) 8-14 tablets by it y of 0.25 mg 00:00: mouth 2 [place] tablet 00 (two) Medical times Branch daily. Take 2 tablets in the morning and 1 tablet at night time amantadine Yes [id number] 200mg Take 2 [facility] HCl 100 mg 8-14 capsules ity o f capsule 00:00: by mouth 2 [place] 00 (two) Medical times Branch daily. SERTraline Yes [id number] 25mg Take 1 [facility] nivers 25 mg 8-14 tablet by ity of tablet 00:00: mouth 00 daily. Medical Branch ARIPiprazol Yes [id number] 2mg Take 1 [facility] e (ABILIFY) 8-14 tablet by ity of 2 mg tablet 00:00: mouth 00 daily. Medical Branch busPIRone Yes [id number] 15mg Take 1 [facility] nivers 15 mg 8-14 tablet by ity of tablet 00:00: mouth 2 [place] 00 (two) Medical times Branch daily. risperiDONE 2018- Yes [id number] .25mg Take 1-2 [facility] (RISPERDAL) 8-14 tablets by it y of 0.25 mg 00:00: mouth 2 [place] tablet 00 (two) Medical times Branch daily. Take 2 tablets in the morning and 1 tablet at night time amantadine 2018-0 Yes [id number] 200mg Take 2 [facility] HCl 100 mg 8-14 capsules ity o f capsule 00:00: by mouth 2 [place] 00 (two) Medical times Branch daily. SERTraline 2018- Yes [id number] 25mg Take 1 [facility] nivers 25 mg 8-14 tablet by ity of tablet 00:00: mouth [place] 00 daily. Medical Branch ARIPiprazol 2018- Yes [id number] 2mg Take 1 [facility] e (ABILIFY) 8-14 tablet by ity of 2 mg tablet 00:00: mouth [place] 00 daily. Medical Branch busPIRone Yes [id number] 15mg Take 1 [facility] nivers 15 mg 8-14 tablet by ity of tablet 00:00: mouth 2 [place] 00 (two) Medical times Branch daily. risperiDONE Yes [id number] .25mg Take 1-2 [facility] (RISPERDAL) 8-14 tablets by it y of 0.25 mg 00:00: mouth 2 [place] tablet 00 (two) Medical times Branch daily. Take 2 tablets in the morning and 1 tablet at night time amantadine 2018- Yes [id number] 200mg Take 2 [facility] HCl 100 mg 8-14 capsules ity o f capsule 00:00: by mouth 2 [place] 00 (two) Medical times Branch daily. SERTraline 2018- Yes [id number] 25mg Take 1 [facility] nivers 25 mg 8-14 tablet by ity of tablet 00:00: mouth [place] 00 daily. Medical Branch ARIPiprazol Yes [id number] 2mg Take 1 [facility] e (ABILIFY) 8-14 tablet by ity of 2 mg tablet 00:00: mouth [place] 00 daily. Medical Branch busPIRone Yes [id number] 15mg Take 1 [facility] nivers 15 mg 8-14 tablet by ity of tablet 00:00: mouth 2 [place] 00 (two) Medical times Branch daily. risperiDONE 2018- Yes [id number] .25mg Take 1-2 [facility] (RISPERDAL) 8-14 tablets by it y of 0.25 mg 00:00: mouth 2 [place] tablet 00 (two) Medical times Branch daily. Take 2 tablets in the morning and 1 tablet at night time amantadine 2018-0 Yes [id number] 200mg Take 2 [facility] HCl 100 mg 8-14 capsules ity o f capsule 00:00: by mouth 2 [place] 00 (two) Medical times Branch daily. SERTraline 2019- Yes [id number] 25mg Take 1 [facility] nivers 25 mg 8-14 tablet by ity of tablet 00:00: mouth [place] 00 daily. Medical Branch ARIPiprazol 2018- Yes [id number] 2mg Take 1 [facility] e (ABILIFY) 8-14 tablet by ity of 2 mg tablet 00:00: mouth [place] 00 daily. Medical Branch busPIRone Yes [id number] 15mg Take 1 [facility] nivers 15 mg 8-14 tablet by ity of tablet 00:00: mouth 2 [place] 00 (two) Medical times Branch daily. risperiDONE Yes [id number] .25mg Take 1-2 [facility] (RISPERDAL) 8-14 tablets by it y of 0.25 mg 00:00: mouth 2 [place] tablet 00 (two) Medical times Branch daily. Take 2 tablets in the morning and 1 tablet at night time amantadine 2018-0 Yes [id number] 200mg Take 2 [facility] HCl 100 mg 8-14 capsules ity o f capsule 00:00: by mouth 2 [place] 00 (two) Medical times Branch daily. SERTraline 2018- Yes [id number] 25mg Take 1 [facility] nivers 25 mg 8-14 tablet by ity of tablet 00:00: mouth [place] 00 daily. Medical Branch ARIPiprazol Yes [id number] 2mg Take 1 [facility] e (ABILIFY) 8-14 tablet by ity of 2 mg tablet 00:00: mouth [place] 00 daily. Medical Branch busPIRone Yes [id number] 15mg Take 1 [facility] nivers 15 mg 8-14 tablet by ity of tablet 00:00: mouth 2 [place] 00 (two) Medical times Branch daily. risperiDONE 2018- Yes [id number] .25mg Take 1-2 [facility] (RISPERDAL) 8-14 tablets by it y of 0.25 mg 00:00: mouth 2 [place] tablet 00 (two) Medical times Branch daily. Take 2 tablets in the morning and 1 tablet at night time amantadine 2018- Yes [id number] 200mg Take 2 [facility] HCl 100 mg 8-14 capsules ity o f capsule 00:00: by mouth 2 [place] 00 (two) Medical times Branch daily. SERTraline Yes [id number] 25mg Take 1 [facility] nivers 25 mg 8-14 tablet by ity of tablet 00:00: mouth [place] 00 daily. Medical Branch ARIPiprazol Yes [id number] 2mg Take 1 [facility] e (ABILIFY) 8-14 tablet by ity of 2 mg tablet 00:00: mouth [place] 00 daily. Medical Branch busPIRone Yes [id number] 15mg Take 1 [facility] nivers 15 mg 8-14 tablet by ity of tablet 00:00: mouth 2 [place] 00 (two) Medical times Branch daily. risperiDONE Yes [id number] .25mg Take 1-2 [facility] (RISPERDAL) 8-14 tablets by it y of 0.25 mg 00:00: mouth 2 [place] tablet 00 (two) Medical times Branch daily. Take 2 tablets in the morning and 1 tablet at night time amantadine 2018- Yes [id number] 200mg Take 2 [facility] HCl 100 mg 8-14 capsules ity o f capsule 00:00: by mouth 2 [place] 00 (two) Medical times Branch daily. SERTraline Yes [id number] 25mg Take 1 [facility] nivers 25 mg 8-14 tablet by ity of tablet 00:00: mouth [place] 00 daily. Medical Branch ARIPiprazol Yes [id number] 2mg Take 1 [facility] e (ABILIFY) 8-14 tablet by ity of 2 mg tablet 00:00: mouth [place] 00 daily. Medical Branch busPIRone Yes [id number] 15mg Take 1 [facility] nivers 15 mg 8-14 tablet by ity of tablet 00:00: mouth 2 [place] 00 (two) Medical times Branch daily. risperiDONE 2018- Yes [id number] .25mg Take 1-2 [facility] (RISPERDAL) 8-14 tablets by it y of 0.25 mg 00:00: mouth 2 [place] tablet 00 (two) Medical times Branch daily. Take 2 tablets in the morning and 1 tablet at night time amantadine 2018- Yes [id number] 200mg Take 2 [facility] HCl 100 mg 8-14 capsules ity o f capsule 00:00: by mouth 2 [place] 00 (two) Medical times Branch daily. SERTraline 2019- Yes [id number] 25mg Take 1 [facility] nivers 25 mg 8-14 tablet by ity of tablet 00:00: mouth [place] 00 daily. Medical Branch ARIPiprazol 2018- Yes [id number] 2mg Take 1 [facility] e (ABILIFY) 8-14 tablet by ity of 2 mg tablet 00:00: mouth 00 daily. Medical Branch busPIRone 2018- Yes [id number] 15mg Take 1 U nivers 15 mg 8-14 tablet by ity of tablet 00:00: mouth 2 [place] 00 (two) Medical times Branch daily. risperiDONE Yes [id number] .25mg Take 1-2 [facility] (RISPERDAL) 8-14 tablets by it y of 0.25 mg 00:00: mouth 2 [place] tablet 00 (two) Medical times Branch daily. Take 2 tablets in the morning and 1 tablet at night time amantadine 2018- Yes [id number] 200mg Take 2 [facility] HCl 100 mg 8-14 capsules ity o f capsule 00:00: by mouth 2 [place] 00 (two) Medical times Branch daily. SERTraline Yes [id number] 25mg Take 1 [facility] nivers 25 mg 8-14 tablet by ity of tablet 00:00: mouth 00 daily. Medical Branch ARIPiprazol Yes [id number] 2mg Take 1 [facility] e (ABILIFY) 8-14 tablet by ity of 2 mg tablet 00:00: mouth [place] 00 daily. Medical Branch busPIRone 2018- Yes [id number] 15mg Take 1 [facility] nivers 15 mg 8-14 tablet by ity of tablet 00:00: mouth 2 [place] 00 (two) Medical times Branch daily. risperiDONE 2019- Yes [id number] .25mg Take 1-2 [facility] (RISPERDAL) 8-14 tablets by it y of 0.25 mg 00:00: mouth 2 [place] tablet 00 (two) Medical times Branch daily. Take 2 tablets in the morning and 1 tablet at night time cloNIDine 2019- Yes [id number] .1mg Take 1 [place] HCl 8-07 tablet by ity of (KAPVAY) 00:00: mouth at [place] 0.1 mg 00 bedtime. Medical tablet Branch cloNIDine Yes [id number] .1mg Take 1 [place] HCl 8-07 tablet by ity of (KAPVAY) 00:00: mouth at [place] 0.1 mg 00 bedtime. Medical tablet Branch cloNIDine 2019- No [id number] .1mg Take 1 U nivers HCl 8-07 08-14 tablet by ity of (KAPVAY) 00:00: 00:00 mouth at [place] 0.1 mg 00 :00 bedtime. Medical tablet Branch cloNIDine 2019- No [id number] .1mg Take 1 U nivers HCl 8-07 08-14 tablet by ity of (KAPVAY) 00:00: 00:00 mouth at [place] 0.1 mg 00 :00 bedtime. Medical tablet Branch XOPENEX HFA Yes [id number] INHALE 2 [facility] 45 7-29 PUFFS BY ity of mcg/actuati 00:00: MOUTH [place] on inhaler 00 EVERY 6 Medica l HOURS Branch NEEDED FOR SHORTNESS OF BREATH, WHEEZING OR BEFORE EXERCISE. XOPENEX HFA Yes [id number] INHALE 2 [facility] 45 7-29 PUFFS BY ity of mcg/actuati 00:00: MOUTH [place] on inhaler 00 EVERY 6 Medica l HOURS Branch NEEDED FOR SHORTNESS OF BREATH, WHEEZING OR BEFORE EXERCISE. XOPENEX HFA Yes [id number] INHALE 2 [facility] 45 7-29 PUFFS BY ity of mcg/actuati 00:00: MOUTH [place] on inhaler 00 EVERY 6 Medica l HOURS Branch NEEDED FOR SHORTNESS OF BREATH, WHEEZING OR BEFORE EXERCISE. XOPENEX HFA Yes [id number] INHALE 2 [facility] 45 7-29 PUFFS BY ity of mcg/actuati 00:00: MOUTH [place] on inhaler 00 EVERY 6 Medica l HOURS Branch NEEDED FOR SHORTNESS OF BREATH, WHEEZING OR BEFORE EXERCISE. XOPENEX HFA 2019- No [id number] INHALE 2 [facility] 45 7-29 08-15 PUFFS BY ity of mcg/actuati 00:00: 00:00 MOUTH [place] on inhaler 00 :00 EVERY 6 Medica l HOURS Branch NEEDED FOR SHORTNESS OF BREATH, WHEEZING OR BEFORE EXERCISE. XOPENEX HFA 2018- No [id number] INHALE 2 [facility] 45 7-29 08-15 PUFFS BY ity of mcg/actuati 00:00: 00:00 MOUTH [place] on inhaler 00 :00 EVERY 6 Medica l HOURS Branch NEEDED FOR SHORTNESS OF BREATH, WHEEZING OR BEFORE EXERCISE. XOPENEX HFA 2018- No [id number] INHALE 2 [facility] 45 7-29 08-15 PUFFS BY ity of mcg/actuati 00:00: 00:00 MOUTH [place] on inhaler 00 :00 EVERY 6 Medica l HOURS Branch NEEDED FOR SHORTNESS OF BREATH, WHEEZING OR BEFORE EXERCISE. amantadine 2018- Yes [id number] 200mg Take 20 mL [facility] HCl 50 mg/5 7-23 by mouth 2 it y of mL solution 00:00: (two) [place] 00 times Medical daily. Branch amantadine 2018- Yes [id number] 200mg Take 20 mL [facility] HCl 50 mg/5 7-23 by mouth 2 it y of mL solution 00:00: (two) [place] 00 times Medical daily. Branch amantadine 2018- Yes [id number] 200mg Take 20 mL [facility] HCl 50 mg/5 7-23 by mouth 2 it y of mL solution 00:00: (two) [place] 00 times Medical daily. Branch amantadine Yes [id number] 200mg Take 20 mL [facility] HCl 50 mg/5 7-23 by mouth 2 it y of mL solution 00:00: (two) [place] 00 times Medical daily. Branch amantadine 2019- No [id number] 200mg Take 20 mL [facility] HCl 50 mg/5 7-23 08-14 by mouth 2 i ty of mL solution 00:00: 00:00 (two) [place] 00 :00 times Medical daily. Branch amantadine 2019- No [id number] 200mg Take 20 mL [facility] HCl 50 mg/5 7-23 08-14 by mouth 2 i ty of mL solution 00:00: 00:00 (two) [place] 00 :00 times Medical daily. Branch busPIRone 2018- Yes [id number] 15mg Take 1 U nivers 15 mg 7-18 tablet by ity of tablet 00:00: mouth 2 [place] 00 (two) Medical times Branch daily. busPIRone Yes [id number] 15mg Take 1 U nivers 15 mg 7-18 tablet by ity of tablet 00:00: mouth 2 [place] 00 (two) Medical times Branch daily. busPIRone Yes [id number] 15mg Take 1 U nivers 15 mg 7-18 tablet by ity of tablet 00:00: mouth 2 [place] 00 (two) Medical times Branch daily. busPIRone Yes [id number] 15mg Take 1 U nivers 15 mg 7-18 tablet by ity of tablet 00:00: mouth 2 [place] (two) Medical times Branch daily. busPIRone 2019- No [id number] 15mg Take 1 [facility] 15 mg 7-18 08-14 tablet by ity of tablet 00:00: 00:00 mouth 2 [place] 00 :00 (two) Medical times Branch daily. busPIRone 2019- No [id number] 15mg Take 1 [facility] 15 mg 7-18 08-14 tablet by ity of tablet 00:00: 00:00 mouth 2 [place] 00 :00 (two) Medical times Branch daily. XOPENEX HFA 2019- No [id number] INHALE 2 [facility] 45 7-10 07-29 PUFFS BY ity of mcg/actuati 00:00: 00:00 MOUTH [place] on inhaler 00 :00 EVERY 6 Medica l HOURS Branch NEEDED SHORTNESS OF BREATH, WHEEZING, OR BEFORE EXERCISE fluticasone Yes [id number] 1{puff} Inhale 1 [facility] propionate 7-01 Puff 2 ity of (FLOVENT 00:00: ([facility]) [facility] times Medical mcg/actuati daily. Branch on inhaler fluticasone Yes [id number] 1{puff} Inhale 1 [facility] propionate 7-01 Puff 2 ity of (FLOVENT 00:00: ([facility]) [place] [facility]) 110 00 times Medical mcg/actuati daily. Branch on inhaler fluticasone Yes [id number] 1{puff} Inhale 1 [facility] propionate 7-01 Puff 2 ity of (FLOVENT 00:00: ([place] [facility]) 110 00 times Medical mcg/actuati daily. Branch on inhaler fluticasone 2018- Yes [id number] 1{puff} Inhale 1 [facility] propionate 7-01 Puff 2 ity of (FLOVENT 00:00: ([place] [facility]) 110 00 times Medical mcg/actuati daily. Branch on inhaler fluticasone 2018- Yes [id number] 1{puff} Inhale 1 [facility] propionate 7-01 Puff 2 ity of (FLOVENT 00:00: ([place] [facility]) 110 00 times Medical mcg/actuati daily. Branch on inhaler fluticasone 2018- Yes [id number] 1{puff} Inhale 1 [facility] propionate 7-01 Puff 2 ity of (FLOVENT 00:00: ([place] [facility]) 110 00 times Medical mcg/actuati daily. Branch on inhaler fluticasone 2018- Yes [id number] 1{puff} Inhale 1 [facility] propionate 7-01 Puff 2 ity of (FLOVENT 00:00: ([place] [facility]) 110 00 times Medical mcg/actuati daily. Branch on inhaler fluticasone Yes [id number] 1{puff} Inhale 1 [facility] propionate 7-01 Puff 2 ity of (FLOVENT 00:00: ([place] [facility]) 110 00 times Medical mcg/actuati daily. Branch on inhaler fluticasone Yes [id number] 1{puff} Inhale 1 [facility] propionate 7-01 Puff 2 ity of (FLOVENT 00:00: ([place] [facility]) 110 00 times Medical mcg/actuati daily. Branch on inhaler fluticasone Yes [id number] 1{puff} Inhale 1 [facility] propionate 7-01 Puff 2 ity of (FLOVENT 00:00: ([place] [facility]) 110 00 times Medical mcg/actuati daily. Branch on inhaler fluticasone 2018- Yes [id number] 1{puff} Inhale 1 [facility] propionate 7-01 Puff 2 ity of (FLOVENT 00:00: ([place] [facility]) 110 00 times Medical mcg/actuati daily. Branch on inhaler fluticasone Yes [id number] 1{puff} Inhale 1 [facility] propionate 7-01 Puff 2 ity of (FLOVENT 00:00: (two) [place] [facility]FA) 110 00 times Medical mcg/actuati daily. Branch on inhaler fluticasone Yes [id number] 1{puff} Inhale 1 [facility] propionate 7-01 Puff 2 ity of (FLOVENT 00:00: (two) [place] [facility]FA) 110 00 times Medical mcg/actuati daily. Branch on inhaler fluticasone Yes [id number] 1{puff} Inhale 1 [facility] propionate 7-01 Puff 2 ity of (FLOVENT 00:00: (two) [place] [facility]FA) 110 00 times Medical mcg/actuati daily. Branch on inhaler ARIPiprazol Yes [id number] 2mg Take 1 [facility] e (ABILIFY) 6-20 tablet by ity of 2 mg tablet 00:00: mouth [place] 00 daily. Medical Branch ARIPiprazol Yes [id number] 2mg Take 1 [facility] e (ABILIFY) 6-20 tablet by ity of 2 mg tablet 00:00: mouth [place] 00 daily. Medical Branch ARIPiprazol Yes [id number] 2mg Take 1 [facility] e (ABILIFY) 6-20 tablet by ity of 2 mg tablet 00:00: mouth [place] 00 daily. [facility] Branch ARIPiprazol Yes [id number] 2mg Take 1 [facility] e (ABILIFY) 6-20 tablet by ity of 2 mg tablet 00:00: mouth [place] 00 daily. Medical Branch ARIPiprazol 2019- No [id number] 2mg Take 1 [facility] e (ABILIFY) 6-20 08-14 tablet by it y of 2 mg tablet 00:00: 00:00 mouth [place] 00 :00 daily. Medical Branch ARIPiprazol 2019- No [id number] 2mg Take 1 [facility] e (ABILIFY) 6-20 08-14 tablet by it y of 2 mg tablet 00:00: 00:00 mouth [place] 00 :00 daily. Medical Branch lisdexamfet Yes [id number] 40mg Take 1 [facility] amine 40 mg 6-19 capsule by it y of capsule 00:00: mouth [place] 00 every Medical morning. Branch lisdexamfet 2019-0 Yes [id number] 40mg Take 1 [facility] amine 40 mg 6-19 capsule by it y of capsule 00:00: mouth [place] 00 every Medical morning. Branch lisdexamfet 2019-0 Yes [id number] 40mg Take 1 [facility] amine 40 mg 6-19 capsule by it y of capsule 00:00: mouth [place] 00 every Medical morning. Branch lisdexamfet 2019-0 Yes [id number] 40mg Take 1 [facility] amine 40 mg 6-19 capsule by it y of capsule 00:00: mouth [place] 00 every Medical morning. Branch lisdexamfet 2019-0 Yes [id number] 40mg Take 1 [facility] amine 40 mg 6-19 capsule by it y of capsule 00:00: mouth [place] 00 every Medical morning. Branch lisdexamfet 2019-0 Yes [id number] 40mg Take 1 [facility] amine 40 mg 6-19 capsule by it y of capsule 00:00: mouth [place] 00 every Medical morning. Branch lisdexamfet 2019-0 Yes [id number] 40mg Take 1 [facility] amine 40 mg 6-19 capsule by it y of capsule 00:00: mouth [place] 00 every Medical morning. Branch lisdexamfet 2019-0 Yes [id number] 40mg Take 1 [facility] amine 40 mg 6-19 capsule by it y of capsule 00:00: mouth [place] 00 every Medical morning. Branch lisdexamfet 2019-0 Yes [id number] 40mg Take 1 [facility] amine 40 mg 6-19 capsule by it y of capsule 00:00: mouth [place] 00 every Medical morning. Branch lisdexamfet 2019-0 Yes [id number] 40mg Take 1 [facility] amine 40 mg 6-19 capsule by it y of capsule 00:00: mouth [place] 00 every Medical morning. Branch lisdexamfet 2019-0 Yes [id number] 40mg Take 1 [facility] amine 40 mg 6-19 capsule by it y of capsule 00:00: mouth [place] 00 every Medical morning. Branch lisdexamfet 2019-0 Yes [id number] 40mg Take 1 [facility] amine 40 mg 6-19 capsule by it y of capsule 00:00: mouth [place] 00 every Medical morning. Branch lisdexamfet 2019-0 Yes [id number] 40mg Take 1 [facility] amine 40 mg 6-19 capsule by it y of capsule 00:00: mouth [place] 00 every Medical morning. Branch lisdexamfet 2019- No [id number] 40mg Take 1 [facility] amine 40 mg 01-04 capsule by i ty of capsule 00:00: 00:00 mouth [place] 00 :00 every Medical morning. Branch cloNIDine Yes [id number] .1mg Take 1 [place] HCl 5-07 tablet by ity of (KAPVAY) 00:00: mouth at [place] 0.1 mg 00 bedtime. Medical tablet Branch cloNIDine Yes [id number] .1mg Take 1 [place] HCl 5-07 tablet by ity of (KAPVAY) 00:00: mouth at [place] 0.1 mg 00 bedtime. Medical tablet Branch cloNIDine 2019- No [id number] .1mg Take 1 U nivers HCl 5-07 08-07 tablet by ity of (KAPVAY) 00:00: 00:00 [place] 0.1 mg 00 :00 bedtime. Medical tablet Branch XOPENEX HFA Yes [id number] INHALE 2 [facility] 45 5-06 PUFFS BY ity of mcg/actuati 00:00: MOUTH [place] on inhaler 00 EVERY 6 Medica l HOURS Branch NEEDED BEFORE EXERCISE OR FOR WHEEZING, SHORTNESS OF BREATH. XOPENEX HFA Yes [id number] INHALE 2 [facility] 45 5-06 PUFFS BY ity of mcg/actuati 00:00: MOUTH [place] on inhaler 00 EVERY 6 Medica l HOURS Branch NEEDED BEFORE EXERCISE OR FOR WHEEZING, SHORTNESS OF BREATH. XOPENEX HFA Yes [id number] INHALE 2 [facility] 45 5-06 PUFFS BY ity of mcg/actuati 00:00: MOUTH [place] on inhaler 00 EVERY 6 Medica l HOURS Branch NEEDED BEFORE EXERCISE OR FOR WHEEZING, SHORTNESS OF BREATH. XOPENEX HFA Yes [id number] INHALE 2 [facility] 45 5-06 PUFFS BY ity of mcg/actuati 00:00: MOUTH [place] on inhaler 00 EVERY 6 Medica l HOURS Branch NEEDED BEFORE EXERCISE OR FOR WHEEZING, SHORTNESS OF BREATH. XOPENEX HFA 2019- No [id number] INHALE 2 [facility] 45 5-06 08-15 PUFFS BY ity of mcg/actuati 00:00: 00:00 M[place]TH [place] inhaler 00 :00 EVERY 6 Medica l HOURS Branch NEEDED BEFORE EXERCISE OR FOR WHEEZING, SHORTNESS OF BREATH. XOPENEX HFA 2019- No [id number] INHALE 2 [facility] 45 5-06 08-15 PUFFS BY ity of mcg/actuati 00:00: 00:00 MOUTH [place] on inhaler 00 :00 EVERY 6 Medica l HOURS Branch NEEDED BEFORE EXERCISE OR FOR WHEEZING, SHORTNESS OF BREATH. XOPENEX HFA 2019- No [id number] INHALE 2 [facility] 45 5-06 08-15 PUFFS [...] Medical suspension times Branch daily. SERTraline Yes [id number] 25mg Take 0.5-1 [facility] 50 mg 4-24 tablets by ity of tablet 00:00: mouth [place] 00 daily. Medical Branch risperiDONE 2018- Yes [id number] .5mg Take 2 Univers (RISPERDAL) 4-24 tablets by it y of 0.25 mg 00:00: mouth 2 [place] tablet 00 (two) Medical times Branch daily. SERTraline Yes [id number] 25mg Take 0.5-1 [facility] 50 mg 4-24 tablets by ity of tablet 00:00: mouth [place] 00 daily. Medical Branch risperiDONE Yes [id number] .5mg Take 2 [facility] (RISPERDAL) 4-24 tablets by it y of 0.25 mg 00:00: mouth 2 [place] tablet 00 (two) Medical times [place] daily. SERTraline Yes [id number] 25mg Take 0.5-1 [facility] 50 mg 4-24 tablets by ity of tablet 00:00: mouth [place] 00 daily. [facility] Branch risperiDONE Yes [id number] .5mg Take 2 Univers (RISPERDAL) 4-24 tablets by it y of 0.25 mg 00:00: mouth 2 [place] tablet 00 (two) [facility] times [place] daily. SERTraline Yes [id number] 25mg Take 0.5-1 [facility] 50 mg 4-24 tablets by ity of tablet 00:00: mouth [place] 00 daily. [facility] Branch risperiDONE Yes [id number] .5mg Take 2 Univers (RISPERDAL) 4-24 tablets by it y of 0.25 mg 00:00: mouth 2 [place] tablet 00 (two) [facility] daily. SERTraline 2018- No [id number] 25mg Take 0.5-1 [facility] 50 mg 4-24 08-14 tablets by ity of tablet 00:00: 00:00 mouth [place] 00 :00 daily. [facility] Branch risperiDONE 2019- No [id number] .5mg Take 2 Univers (RISPERDAL) 4-24 08-14 tablets by i ty of 0.25 mg 00:00: 00:00 mouth 2 [place] tablet 00 :00 (two) [facility] daily. SERTraline 2019- No [id number] 25mg Take 0.5-1 [facility] 50 mg 4-24 08-14 tablets by ity of tablet 00:00: 00:00 mouth [place] 00 :00 daily. [facility] Branch risperiDONE 2019- No [id number] .5mg Take 2 Univers (RISPERDAL) 4-24 08-14 tablets by i ty of 0.25 mg 00:00: 00:00 mouth 2 [place] tablet 00 :00 (two) [facility] times [place] daily. ARIPIPRAZOL Yes TAKE 1 Univ ers E 5 mg 1-04 TABLET BY ity of tablet 00:00: MOUTH [place] 00 EVERY Medical DAY([facility] Branch E POLA Main MD) ARIPIPRAZOL Yes TAKE 1 Univ ers E 5 mg 1-04 TABLET BY ity of tablet 00:00: MOUTH [place] 00 EVERY Medical DAY(HAILEY Main MD) ARIPIPRAZOL 0 Yes TAKE 1 Univ ers E 5 mg 1-04 TABLET BY ity of tablet 00:00: MOUTH [place] 00 EVERY Medical DAY(HAILEY Main MD) ARIPIPRAZOL 0 Yes TAKE 1 Univ ers E 5 mg 1-04 TABLET BY ity of tablet 00:00: MOUTH [place] 00 EVERY Medical DAY(HAILEY Main MD) ARIPIPRAZOL 2018- 2019- No TAKE 1 Uni vers E 5 mg 1-04 08-14 TABLET BY ity of tablet 00:00: 00:00 MOUTH [place] 00 :00 EVERY Medical DAY(HAILEY Main MD) ARIPIPRAZOL 2018- 2019- No TAKE 1 Uni vers E 5 mg 1-04 08-14 TABLET BY ity of tablet 00:00: 00:00 MOUTH [place] 00 :00 EVERY Medical DAY(HAILEY Main MD) [place] [id number] 2017-07 Yes 12 ml BID [place] MG/ML ORAL 2-19 , per mom ity of SOLN 21:44: [address] 2017-07 Yes 20mg Take 20 mg [facility] E MAG 2-19 by mouth ity of TRIHYDRATE 21:44: once now. [place] (NEXIUM 48 Medical ORAL) [place] [address] 2017-07 Yes 12 ml BID [place] MG/ML ORAL 2-19 , per mom ity of SOLN 21:44: [address] ESOMEPRAZOL 2017-07 Yes 20mg Take 20 mg Univers E MAG 2-19 by mouth ity of TRIHYDRATE 21:44: once now. [place] (NEXIUM 48 Medical ORAL) [place] [address] 2017-07 Yes 12 ml BID [place] MG/ML ORAL 2-19 , per mom ity of SOLN 21:44: [address] ESOMEPRAZOL 2017-07 Yes 20mg Take 20 mg [facility] E MAG 2-19 by mouth ity of TRIHYDRATE 21:44: once now. [place] (NEXIUM 48 Medical ORAL) [place] [address] 2017-07 Yes 12 ml BID [place] MG/ML ORAL 2-19 , per mom ity of SOLN 21:44: [address] 2017-07 Yes 20mg Take 20 mg [facility] E MAG 2-19 by mouth ity of TRIHYDRATE 21:44: once now. [place] (NEXIUM 48 Medical ORAL) [place] [address] 2017-07 Yes 12 ml BID [place] MG/ML ORAL 2-19 , per mom ity of SOLN 21:44: [address] 2017-07 Yes 20mg Take 20 mg [facility] E MAG 2-19 by mouth ity of TRIHYDRATE 21:44: once now. [place] (NEXIUM 48 Medical ORAL) [place] [address] 2017-07 Yes 12 ml BID [place] MG/ML ORAL 2-19 , per mom ity of SOLN 21:44: [address] 2017-07 Yes 20mg Take 20 mg [facility] E MAG 2-19 by mouth ity of TRIHYDRATE 21:44: once now. [place] (NEXIUM 48 Medical ORAL) [place] [address] 2017-07 Yes 12 ml BID [place] MG/ML ORAL 2-19 , per mom ity of SOLN 21:44: [address] 2017-07 Yes 20mg Take 20 mg [facility] E MAG 2-19 by mouth ity of TRIHYDRATE 21:44: once now. [place] (NEXIUM 48 Medical ORAL) [place] [address] 2017-07 Yes 12 ml BID [place] MG/ML ORAL 2-19 , per mom ity of SOLN 21:44: [address] 2017-07 Yes 20mg Take 20 mg [facility] E MAG 2-19 by mouth ity of TRIHYDRATE 21:44: once now. [place] (NEXIUM 48 Medical ORAL) [place] [address] 2017-07 Yes 12 ml BID [place] MG/ML ORAL 2-19 , per mom ity of SOLN 21:44: [place] [id number] 2017-07 Yes 12 ml BID [place] MG/ML ORAL 2-19 , per mom ity of SOLN 21:44: [address] 2017-07 Yes 20mg Take 20 mg [facility] E MAG 2-19 by mouth ity of TRIHYDRATE 21:44: once now. [place] (NEXIUM 48 Medical ORAL) [facility] 2017-07 Yes 20mg Take 20 mg [facility] E MAG 2-19 by mouth ity of TRIHYDRATE 21:44: once now. [place] (NEXIUM 48 Medical ORAL) [place] [address] 2017-07 Yes 12 ml BID [place] MG/ML ORAL 2-19 , per mom ity of SOLN 21:44: [address] 2017-07 Yes 20mg Take 20 mg [facility] E MAG 2-19 by mouth ity of TRIHYDRATE 21:44: once now. [place] (NEXIUM 48 Medical ORAL) [place] [address] 2017-07 Yes 12 ml BID [place] MG/ML ORAL 2-19 , per mom ity of SOLN 21:44: [address] 2017-07 Yes 20mg Take 20 mg [facility] E MAG 2-19 by mouth ity of TRIHYDRATE 21:44: once now. [place] (NEXIUM 48 Medical ORAL) [place] [address] 2017-07 Yes 12 ml BID [place] MG/ML ORAL 2-19 , per mom ity of SOLN 21:44: [address] 2017-07 Yes 20mg Take 20 mg [facility] E MAG 2-19 by mouth ity of TRIHYDRATE 21:44: once now. [place] (NEXIUM 48 Medical ORAL) [place] [address] 2017-07 Yes 12 ml BID [place] MG/ML ORAL 2-19 , per mom ity of SOLN 21:44: [address] 2017-07 Yes 20mg Take 20 mg [facility] E MAG 2-19 by mouth ity of TRIHYDRATE 21:44: once now. [place] (NEXIUM 48 Medical ORAL) [place] [address] 2017-07 Yes 12 ml BID [place] MG/ML ORAL 2-19 , per mom ity of SOLN 21:44: [address] 2017-07 Yes 20mg Take 20 mg [facility] E MAG 2-19 by mouth ity of TRIHYDRATE 21:44: once now. [place] (NEXIUM 48 Medical ORAL) [place] [address] 2017-07 Yes 12 ml BID [place] MG/ML ORAL 2-19 , per mom ity of SOLN 21:44: [address] 2017-07 Yes 20mg Take 20 mg [facility] E MAG 2-19 by mouth ity of TRIHYDRATE 21:44: once now. [place] (NEXIUM 48 Medical ORAL) Branch [place] [id number] 2017-07 Yes 12 ml BID [place] MG/ML ORAL 2-19 , per mom ity of SOLN 21:44: [address] 2017-07 Yes 20mg Take 20 mg [facility] E MAG 2-19 by mouth ity of TRIHYDRATE 21:44: once now. [place] (NEXIUM 48 Medical ORAL) [place] [address] 2017-07 Yes 12 ml BID [place] MG/ML ORAL 2-19 , per mom ity of SOLN 21:44: [address] 2017-07 Yes 20mg Take 20 mg [facility] E MAG 2-19 by mouth ity of TRIHYDRATE 21:44: once now. [place] (NEXIUM 48 Medical ORAL) [place] [address] 2017-07 Yes 12 ml BID [place] MG/ML ORAL 2-19 , per mom ity of SOLN 21:44: [address] 2017-07 Yes 20mg Take 20 mg [facility] E MAG 2-19 by mouth ity of TRIHYDRATE 21:44: once now. [place] (NEXIUM 48 Medical ORAL) [place] [address] 2017-07 Yes 12 ml BID [place] MG/ML ORAL 2-19 , per mom ity of SOLN 21:44: [place] [id number] 2017-07 Yes 12 ml BID [place] MG/ML ORAL 2-19 , per mom ity of SOLN 21:44: [address] 2017-07 Yes 20mg Take 20 mg Univers E MAG 2-19 by mouth ity of TRIHYDRATE 21:44: once now. [place] (NEXIUM 48 Medical ORAL) [facility] 2017-07 Yes 20mg Take 20 mg [facility] E MAG 2-19 by mouth ity of TRIHYDRATE 21:44: once now. [place] (NEXIUM 48 Medical ORAL) [place] [address] 2017-07 Yes 12 ml BID [place] MG/ML ORAL 2-19 , per mom ity of SOLN 21:44: [address] 2017-07 Yes 20mg Take 20 mg [facility] E MAG 2-19 by mouth ity of TRIHYDRATE 21:44: once now. [place] (NEXIUM 48 Medical ORAL) Branch [place] [id number] 2017-07 Yes 12 ml BID [place] MG/ML ORAL 2-19 , per mom ity of SOLN 21:44: [address] 2017-07 Yes 20mg Take 20 mg [facility] E MAG 2-19 by mouth ity of TRIHYDRATE 21:44: once now. [place] (NEXIUM 48 Medical ORAL) [place] [address] 2017-07 Yes 12 ml BID [place] MG/ML ORAL 2-19 , per mom ity of SOLN 21:44: [address] [facility] Yes 20mg Take 20 mg [facility] E MAG 2-19 by mouth ity of TRIHYDRATE 21:44: once now. [place] (NEXIUM 48 Medical ORAL) [place] [address] 2017-07 Yes 12 ml BID [place] MG/ML ORAL 2-19 , per mom ity of SOLN 21:44: [address] [facility] Yes 20mg Take 20 mg [facility] E MAG 2-19 by mouth ity of TRIHYDRATE 21:44: once now. [place] (NEXIUM 48 Medical ORAL) [place] [address] 2017-07 Yes 12 ml BID [place] MG/ML ORAL 2-19 , per mom ity of SOLN 21:44: [address] 2017-07 Yes 20mg Take 20 mg [facility] E MAG 2-19 by mouth ity of TRIHYDRATE 21:44: once now. [place] (NEXIUM 48 Medical ORAL) [place] [address] 2017-07 Yes 12 ml BID [place] MG/ML ORAL 2-19 , per mom ity of SOLN 21:44: [address] 2017-07 Yes 20mg Take 20 mg [facility] E MAG 2-19 by mouth ity of TRIHYDRATE 21:44: once now. [place] (NEXIUM 48 Medical ORAL) [place] [address] 2017-07 Yes 12 ml BID [place] MG/ML ORAL 2-19 , per mom ity of SOLN 21:44: [address] ESOMEPRAZOL 2017-07 Yes 20mg Take 20 mg [facility] E MAG 2-19 by mouth ity of TRIHYDRATE 21:44: once now. [place] (NEXIUM 48 Medical ORAL) [place] [address] 2017-07 Yes 12 ml BID [place] MG/ML ORAL 2-19 , per mom ity of SOLN 15:44: [address] 2017-07 Yes 20mg Take 20 mg Univers E MAG 2-19 by mouth ity of TRIHYDRATE 15:44: once now. [place] (NEXIUM 48 Medical ORAL) [place] [address] 2017-07 Yes 12 ml BID [place] MG/ML ORAL 2-19 , per mom ity of SOLN 15:44: [address] 2017-07 Yes 20mg Take 20 mg [facility] E MAG 2-19 by mouth ity of TRIHYDRATE 15:44: once now. [place] (NEXIUM 48 Medical ORAL) [place] [address] 2017-07 Yes 12 ml BID [place] MG/ML ORAL 2-19 , per mom ity of SOLN 15:44: [address] [facility] Yes 20mg Take 20 mg [facility] E MAG 2-19 by mouth ity of TRIHYDRATE 15:44: once now. [place] (NEXIUM 48 Medical ORAL) [place] [address] 2017-07 Yes 12 ml BID [place] MG/ML ORAL 2-19 , per mom ity of SOLN 15:44: [address] 2017-07 Yes 20mg Take 20 mg [facility] E MAG 2-19 by mouth ity of TRIHYDRATE 15:44: once now. [place] (NEXIUM 48 Medical ORAL) [place] [address] 2017-07 Yes 12 ml BID [place] MG/ML ORAL 2-19 , per mom ity of SOLN 15:44: [address] 2017-07 Yes 20mg Take 20 mg Univers E MAG 2-19 by mouth ity of TRIHYDRATE 15:44: once now. [place] (NEXIUM 48 Medical ORAL) [place] [address] 2017-07 Yes 12 ml BID [place] MG/ML ORAL 2-19 , per mom ity of SOLN 15:44: [address] ESOMEPRAZOL 2017-07 Yes 20mg Take 20 mg Univers E MAG 2-19 by mouth ity of TRIHYDRATE 15:44: once now. [place] (NEXIUM 48 Medical ORAL) [place] [address] 2017-07 Yes 12 ml BID [place] MG/ML ORAL 2-19 , per mom ity of SOLN 15:44: [address] 2017-07 Yes 20mg Take 20 mg Univers E MAG 2-19 by mouth ity of TRIHYDRATE 15:44: once now. [place] (NEXIUM 48 Medical ORAL) [place] [address] 2017-07 Yes 12 ml BID [place] MG/ML ORAL 2-19 , per mom ity of SOLN 15:44: [address] 2017-07 Yes 20mg Take 20 mg [facility] E MAG 2-19 by mouth ity of TRIHYDRATE 15:44: once now. [place] (NEXIUM 48 Medical ORAL) [place] [address] 2017-07 Yes 12 ml BID [place] MG/ML ORAL 2-19 , per mom ity of SOLN 15:44: [address] [facility] Yes 20mg Take 20 mg [facility] E MAG 2-19 by mouth ity of TRIHYDRATE 15:44: once now. [place] (NEXIUM 48 Medical ORAL) [place] [address] 2017-07 Yes 12 ml BID [place] MG/ML ORAL 2-19 , per mom ity of SOLN 15:44: [address] 2017-07 Yes 20mg Take 20 mg Univers E MAG 2-19 by mouth ity of TRIHYDRATE 15:44: once now. [place] (NEXIUM 48 Medical ORAL) [place] [address] 2017-07 Yes 12 ml BID [place] MG/ML ORAL 2-19 , per mom ity of SOLN 15:44: [address] 2017-07 Yes 20mg Take 20 mg Univers E MAG 2-19 by mouth ity of TRIHYDRATE 15:44: once now. [place] (NEXIUM 48 Medical ORAL) [place] [address] 2017-07 Yes 12 ml BID [place] MG/ML ORAL 2-19 , per mom ity of SOLN 15:44: [address] ESOMEPRAZOL 2017-07 Yes 20mg Take 20 mg [facility] E MAG 2-19 by mouth ity of TRIHYDRATE 15:44: once now. [place] (NEXIUM 48 Medical ORAL) [place] [address] 2017-07 Yes 12 ml BID [place] MG/ML ORAL 2-19 , per mom ity of SOLN 15:44: [address] 2017-07 Yes 20mg Take 20 mg [facility] E MAG 2-19 by mouth ity of TRIHYDRATE 15:44: once now. [place] (NEXIUM 48 Medical ORAL) [place] [address] 2017-07 Yes 12 ml BID [place] MG/ML ORAL 2-19 , per mom ity of SOLN 15:44: [address] 2017-07 Yes 20mg Take 20 mg [facility] E MAG 2-19 by mouth ity of TRIHYDRATE 15:44: once now. [place] (NEXIUM 48 Medical ORAL) [place] [address] 2017-07 Yes 12 ml BID [place] MG/ML ORAL 2-19 , per mom ity of SOLN 15:44: [address] 2017-07 Yes 20mg Take 20 mg [facility] E MAG 2-19 by mouth ity of TRIHYDRATE 15:44: once now. [place] (NEXIUM 48 Medical ORAL) [place] [address] 2017-07 Yes 12 ml BID [place] MG/ML ORAL 2-19 , per mom ity of SOLN 15:44: [address] 2017-07 Yes 20mg Take 20 mg [facility] E MAG 2-19 by mouth ity of TRIHYDRATE 15:44: once now. [place] (NEXIUM 48 Medical ORAL) [place] [address] 2017-07 Yes 12 ml BID [place] MG/ML ORAL 2-19 , per mom ity of SOLN 15:44: [address] 2017-07 Yes 20mg Take 20 mg Univers E MAG 2-19 by mouth ity of TRIHYDRATE 15:44: once now. [place] (NEXIUM 48 Medical ORAL) [place] [address] 2017-07 Yes 12 ml BID [place] MG/ML ORAL 2-19 , per mom ity of SOLN 15:44: [address] ESOMEPRAZOL 2017-07 Yes 20mg Take 20 mg Univers E MAG 2-19 by mouth ity of TRIHYDRATE 15:44: once now. [place] (NEXIUM 48 Medical ORAL) Branch [place] [id number] 2017-07 Yes 12 ml BID [place] MG/ML ORAL 2-19 , per mom ity of SOLN 15:44: [address] 2017-07 Yes 20mg Take 20 mg Univers E MAG 2-19 by mouth ity of TRIHYDRATE 15:44: once now. [place] (NEXIUM 48 Medical ORAL) [place] [address] 2017-07 Yes 12 ml BID [place] MG/ML ORAL 2-19 , per mom ity of SOLN 15:44: [address] 2017-07 Yes 20mg Take 20 mg Univers E MAG 2-19 by mouth ity of TRIHYDRATE 15:44: once now. [place] (NEXIUM 48 Medical ORAL) [place] [address] 2017-07 Yes 12 ml BID [place] MG/ML ORAL 2-19 , per mom ity of SOLN 15:44: [address] 2017-07 Yes 20mg Take 20 mg [facility] E MAG 2-19 by mouth ity of TRIHYDRATE 15:44: once now. [place] (NEXIUM 48 Medical ORAL) [place] [address] 2017-07 Yes 12 ml BID [place] MG/ML ORAL 2-19 , per mom ity of SOLN 15:44: [address] 2017-07 Yes 20mg Take 20 mg Univers E MAG 2-19 by mouth ity of TRIHYDRATE 15:44: once now. [place] (NEXIUM 48 Medical ORAL) [place] [address] 2017-07 Yes 12 ml BID [place] MG/ML ORAL 2-19 , per mom ity of SOLN 15:44: [address] 2017-07 Yes 20mg Take 20 mg Univers E MAG 2-19 by mouth ity of TRIHYDRATE 15:44: once now. [place] (NEXIUM 48 Medical ORAL) Branch DIASTAT 2018-0 Yes 10mg as Univers ACUDIAL 8-21 needed for ity of 5-7.5-10 MG 19:32: seizure [place] as RECTAL KIT 05 lasting Medica l greater Branch than 5 min IMITREX 5 Yes as needed Uni vers MG/ACTUATIO 8-21 for ity of N NASAL 19:32: migraines [address] Yes Apply to [place] ne 0.1% in 8-21 affected ity o f aquaphor 19:32: area(s). [place] ([address] ) ointment Branch DIASTAT Yes 10mg as Univers ACUDIAL 8-21 needed for ity of 5-7.5-10 MG 19:32: seizure [place] RECTAL KIT 05 lasting Medica l greater Branch than 5 min IMITREX 5 Yes as needed Uni vers MG/ACTUATIO 8-21 for ity of N NASAL 19:32: migraines [address] Yes Apply to [place] ne 0.1% in 8-21 affected ity o f aquaphor 19:32: area(s). [place] [facility] [address] [place] [address] ) ointment [place] DIASTAT Yes 10mg as Univers ACUDIAL 8-21 needed for ity of 5-7.5-10 MG 19:32: seizure [place] RECTAL KIT 05 lasting Medica l greater Branch than 5 min IMITREX 5 0 Yes as needed Uni vers MG/ACTUATIO 8-21 for ity of N NASAL 19:32: migraines [address] Yes Apply to [place] ne 0.1% in 8-21 affected ity o f aquaphor 19:32: area(s). [place] ([facility]OUNDED [address] [place] [address] ) ointment Branch DIASTAT Yes 10mg as Univers ACUDIAL 8-21 needed for ity of 5-7.5-10 MG 19:32: seizure [place] RECTAL KIT 05 lasting Medica l greater Branch than 5 min IMITREX 5 0 Yes as needed Uni vers MG/ACTUATIO 8-21 for ity of N NASAL 19:32: migraines [address] Yes Apply to [place] ne [...] for ity of N NASAL 19:32: migraines [address] Yes Apply to [place] ne [...] for ity of N NASAL 19:32: migraines [address] Yes Apply to [place] ne [...] for ity of N NASAL 19:32: migraines [address] Yes Apply to [place] ne [...] for ity of N NASAL 19:32[facility] [address] [place] [address] Yes Apply to [place] ne 0.1% [...] for ity of N NASAL 19:32: [facility] IM[facility]X 5 Yes as needed Uni vers MG/ACTUATIO 8-21 for ity of N NASAL 19:32: [facility] [address] [place] [address] Yes Apply to [place] ne 0.1% [...] for ity of N NASAL 19:32: [facility] [address] [place] [address] Yes Apply to [place] 0.1% in 8-21 affected ity o f aquaphor 19:32: area(s). [place] (COMPOUNDED 05 Medical ) ointment [facility] Yes Apply to [place] 0.1% [...] for ity of N NASAL 19:32: migraines [address] Yes Apply to [place] 0.1% in 8-21 affected ity o f aquaphor 19:32: area(s). [address] ) ointment Branch DIASTAT Yes 10mg as Univers ACUDIAL 8-21 needed for ity of 5-7.5-10 MG 19:32: seizure [place] RECTAL KIT 05 lasting Medica l greater Branch than 5 min IMITREX 5 Yes as needed Uni vers MG/ACTUATIO 8-21 for ity of N NASAL 19:32: migraines [address] Yes Apply to [place] ne 0.1% in 8-21 affected ity o f aquaphor 19:32: area(s). [place] ([address] ) ointment Branch DIASTAT Yes 10mg as Univers ACUDIAL 8-21 needed for ity of 5-7.5-10 MG 19:32: seizure [place] RECTAL KIT 05 lasting Medica l greater Branch than 5 min IMITREX 5 Yes as needed Uni vers MG/ACTUATIO 8-21 for ity of N NASAL 19:32: migraines [address] Yes Apply to [place] ne 0.1% in 8-21 affected ity o f aquaphor 19:32: area(s). [place] ([facility] [address] [place] [address] ) ointment Branch DIASTAT Yes 10mg as Univers ACUDIAL 8-21 needed for ity of 5-7.5-10 MG 19:32: seizure [place] RECTAL KIT 05 lasting Medica l greater Branch than 5 min IMITREX 5 Yes as needed Uni vers MG/ACTUATIO 8-21 for ity of N NASAL 19:32: migraines [address] Yes Apply to [place] ne [...] for ity of N NASAL 19:32: migraines [address] Yes Apply to [place] ne [...] for ity of N NASAL 19:32: migraines [address] Yes Apply to [place] ne [...] for ity of N NASAL 19:32: migraines [address] Yes Apply to [place] ne [...] for ity of N NASAL 19:32: migraines [address] Yes Apply to [place] ne [...] for ity of N NASAL 19:32: migraines [address] Yes Apply to [place] ne [...] for ity of N NASAL 19:32: migraines [address] DIASTAT Yes 10mg as Univers ACUDIAL 8-21 needed for ity of 5-7.5-10 MG 19:32: seizure [place] RECTAL KIT 05 lasting Medica l greater [facility] than 5 min IMITREX 5 Yes as needed Uni vers MG/ACTUATIO 8-21 for ity of N NASAL 19:32: migraines [address] Yes Apply to [place] 0.1% in 8-21 affected ity o f aquaphor 19:32: area(s). [place] ([facility] ) ointment [facility] Yes Apply to [place] 0.1% [...] for ity of N NASAL 19:32: migraines [address] Yes Apply to [place] 0.1% in 8-21 affected ity o f aquaphor 19:32: area(s). [place] ([address] ) ointment Branch DIASTAT Yes 10mg as [facility] ACUDIAL 8-21 needed for ity of 5-7.5-10 MG 19:32: seizure [place]ales as RECTAL KIT 05 lasting [facility] than 5 min IMITREX 5 Yes as needed Uni vers MG/ACTUATIO 8-21 for ity of N NASAL 19:32: migraines [address] Yes Apply to [place] 0.1% in 8- affected ity o f aquaphor 19:32: area(s). [place] ([facility] [address] [place] [address] ) ointment Geraldine DIAST Yes 10mg as Univers ACUDIAL 8-21 needed for ity of 5-7.5-10 MG 19:32: seizure [place] as RECTAL KIT 05 lasting [facility] greater [facility] than 5 min IMITREX 5 Yes as needed Uni vers MG/ACTUATIO 8-21 for ity of N NASAL 19:32: migraines [address] Yes Apply to [place] 0.1% in 8-21 affected ity o f aquaphor 19:32: area(s). [place] ([facility] [address] [place] [address] ) ointment Branch DIASTAT Yes 10mg as [facility] ACUDIAL 8-21 needed for ity of 5-7.5-10 MG 19:32: seizure [place] as RECTAL KIT 05 lasting [facility] greater [facility] than 5 min IMITREX 5 0 Yes as needed Uni vers MG/ACTUATIO 8-21 for ity of N NASAL 19:32: migraines [address] Yes Apply to [place] [...] for ity of N NASAL 19:32: migraines [address] Yes Apply to [place] [...] for ity of N NASAL 19:32: migraines [address] Yes Apply to [place] [...] for ity of N NASAL 14:32: migraines [address] Yes Apply to [place] 0.1% in 8-21 affected ity o f aquaphor 14:32: area(s). [place] ([facility] ) ointment Branch DIASTAT Yes 10mg as [facility] ACUDIAL 8-21 needed for ity of 5-7.5-10 MG 14:32: seizure [place] as RECTAL KIT 05 lasting [facility] greater [facility] than 5 min IMITREX 5 Yes as needed Uni vers MG/ACTUATIO 8-21 for ity of N NASAL 14:32: migraines [address] Yes Apply to [place] 0.1% in 8-21 affected ity o f aquaphor 14:32: area(s). [place] ([facility] [address] [place] [address] ) ointment Branch DIASTAT Yes 10mg as [facility] ACUDIAL 8-21 needed for ity of 5-7.5-10 MG 14:32: seizure [place] as RECTAL KIT 05 lasting [facility]ica [facility] greater [facility] than 5 min IMITREX 5 Yes as needed Uni vers MG/ACTUATIO 8-21 for ity of N NASAL 14:32: migraines [address] Yes Apply to [place] 0.1% in 8- affected ity o f aquaphor 14:32: area(s). [place] ([facility] [address] [place] [address] ) ointment Branch DIASTAT Yes 10mg as [facility] ACUDIAL 8-21 needed for ity of 5-7.5-10 MG 14:32: seizure [place] as RECTAL KIT 05 lasting [facility] greater [facility] than 5 min IMITREX 5 0 Yes as needed Uni vers MG/ACTUATIO 8-21 for ity of N NASAL 14:32: migraines [address] Yes Apply to [place] 0.1% in 8-21 affected ity o f aquaphor 14:32: area(s). [place] ([facility] ) ointment Branch DIASTAT Yes 10mg as [facility] ACUDIAL 8-21 needed for ity of 5-7.5-10 MG 14:32: seizure [place] as RECTAL KIT 05 lasting [facility] greater [facility] than 5 min IMITREX 5 0 Yes as needed Uni vers MG/ACTUATIO 8-21 for ity of N NASAL 14:32: migraines [address] Yes Apply to [place] 0.1% in 8-21 affected ity o f aquaphor 14:32: area(s). [place] ([facility] ) ointment Branch DIASTAT Yes 10mg as [facility] ACUDIAL 8-21 needed for ity of 5-7.5-10 MG 14:32: seizure [place] as RECTAL KIT 05 lasting [facility] greater [facility] than 5 min IMITREX 5 Yes as needed Uni vers MG/ACTUATIO 8-21 for ity of N NASAL 14:32: migraines [address] Yes Apply to [place] 0.1% in 8-21 affected ity o f aquaphor 14:32: area(s). [place] ([address] ) ointment Geraldine DIASTAT Yes 10mg as [facility] ACUDIAL 8-21 needed for ity of 5-7.5-10 MG 14:32: seizure [place] as RECTAL KIT 05 lasting Medica [facility] greater [facility] than 5 min IMITREX 5 Yes as needed Uni vers MG/ACTUATIO 8-21 for ity of N NASAL 14:32: migraines [address] Yes Apply to [place] 0.1% in 8- affected ity o f aquaphor 14:32: area(s). [place] ([address] ) ointment Geraldine DIASTAT Yes 10mg as [facility] ACUDIAL 8-21 needed for ity of 5-7.5-10 MG 14:32: seizure [place] as RECTAL KIT 05 lasting [facility] greater [facility] than 5 min IMITREX 5 Yes as needed Uni vers MG/ACTUATIO 8-21 for ity of N NASAL 14:32: migraines [address] Yes Apply to [place] 0.1% in 8-21 affected ity o f aquaphor 14:32: area(s). [place] ([facility] [address] [place] [address] ) ointment Branch DIASTAT Yes 10mg as [facility] ACUDIAL 8-21 needed for ity of 5-7.5-10 MG 14:32: seizure [place] as RECTAL KIT 05 lasting [facility] greater [facility] than 5 min IMITREX 5 Yes as needed Uni vers MG/ACTUATIO 8-21 for ity of N NASAL 14:32: migraines [address] Yes Apply to [place] 0.1% in 8-21 affected ity o f aquaphor 14:32: area(s). [place] ([facility] ) ointment Branch DIASTAT Yes 10mg as [facility] ACUDIAL 8-21 needed for ity of 5-7.5-10 MG 14:32: seizure [place] as RECTAL KIT 05 lasting [facility] greater [facility] than 5 min IMITREX 5 0 Yes as needed Uni vers MG/ACTUATIO 8-21 for ity of N NASAL 14:32[facility] [address] [place] [address] Yes Apply to [place] 0.1% in 8-21 affected ity o f aquaphor 14:32: area(s). [place] ([facility] ) ointment Branch DIASTAT Yes 10mg as Univers ACUDIAL 8-21 needed for ity of 5-7.5-10 MG 14:32: seizure [place]ales as RECTAL KIT 05 lasting Medica [facility] greater [facility] than 5 min IMITREX 5 0 Yes as needed Uni vers MG/ACTUATIO 8-21 for ity of N NASAL 14:32: migraines [address] Yes Apply to [place] 0.1% in 8-21 affected ity o f aquaphor 14:32: area(s). [place] ([facility] ) ointment Branch DIASTAT Yes 10mg as [facility] ACUDIAL 8-21 needed for ity of 5-7.5-10 MG 14:32: seizure [place] as RECTAL KIT 05 lasting [facility] greater [facility] than 5 min IMITREX 5 0 Yes as needed Uni vers MG/ACTUATIO 8-21 for ity of N NASAL 14:32: [facility] [address] [place] [address] Yes Apply to [place] 0.1% in 8-21 affected ity o f aquaphor 14:32: area(s). [place] ([facility] 05 [facility] ) ointment Branch DIASTAT Yes 10mg as Univers ACUDIAL 8-21 needed for ity of 5-7.5-10 MG 14:32: seizure [place]ales as RECTAL KIT 05 lasting [facility] greater [facility] than 5 min IMITREX 5 0 Yes as needed Uni vers MG/ACTUATIO 8-21 for ity of N NASAL 14:32: migraines [address] Yes Apply to [place] 0.1% in 8-21 affected ity o f aquaphor 14:32: area(s). [place] ([facility] ) ointment Branch DIASTAT Yes 10mg as Univers ACUDIAL 8-21 needed for ity of 5-7.5-10 MG 14:32: seizure [place]ales as RECTAL KIT 05 lasting Medica [facility] greater [facility] than 5 min IMITREX 5 Yes as needed Uni vers MG/ACTUATIO 8-21 for ity of N NASAL 14:32: migraines [address] Yes Apply to [place] 0.1% in 8-21 affected ity o f aquaphor 14:32: area(s). [place] ([facility] [address] [place] [address] ) ointment Branch DIASTAT Yes 10mg as Univers ACUDIAL 8-21 needed for ity of 5-7.5-10 MG 14:32: seizure [place]ales as RECTAL KIT 05 lasting Medica [facility] greater [facility] than 5 min IMITREX 5 0 Yes as needed Uni vers MG/ACTUATIO 8-21 for ity of N NASAL 14:32: migraines [address] Yes Apply to [place] 0.1% in 8-21 affected ity o f aquaphor 14:32: area(s). [place] ([facility] ) ointment Branch DIASTAT Yes 10mg as [facility] ACUDIAL 8-21 needed for ity of 5-7.5-10 MG 14:32: seizure [place] as RECTAL KIT 05 lasting Med[facility] greater [facility] than 5 min IMITREX 5 Yes as needed Uni vers MG/ACTUATIO 8-21 for ity of N NASAL 14:32: migraines [address] Yes Apply to [place] 0.1% in 8-21 affected ity o f aquaphor 14:32: area(s). [place] ([facility] ) ointment Branch DIASTAT Yes 10mg as Univers ACUDIAL 8-21 needed for ity of 5-7.5-10 MG 14:32: seizure [place]ales as RECTAL KIT 05 lasting Med[facility] greater [facility] than 5 min IMITREX 5 Yes as needed Uni vers MG/ACTUATIO 8-21 for ity of N NASAL 14:32: migraines [address] Yes Apply to [place] 0.1% in 8-21 affected ity o f aquaphor 14:32: area(s). [address] ) ointment Geraldine DIASTAT Yes 10mg as Univers ACUDIAL 8-21 needed for ity of 5-7.5-10 MG 14:32: seizure [place]ales as RECTAL KIT 05 lasting Medica [facility] greater [facility] than 5 min IMITREX 5 Yes as needed Uni vers MG/ACTUATIO 8-21 for ity of N NASAL 14:32: migraines [address] Yes Apply to [place] 0.1% in 8- affected ity o f aquaphor 14:32: area(s). [place] ([address] ) ointment Geraldine DIAST Yes 10mg as Univers ACUDIAL 8-21 needed for ity of 5-7.5-10 MG 14:32: seizure [place]ales as RECTAL KIT 05 lasting Medica l greater Branch than 5 min IMITREX 5 Yes as needed Uni vers MG/ACTUATIO 8-21 for ity of N NASAL 14:32: migraines [address] Yes Apply to [place] 0.1% in 8-21 affected ity o f aquaphor 14:32: area(s). [place] ([facility] [address] [place] [address] ) ointment Geraldine DIASTAT Yes 10mg as Univers ACUDIAL 8-21 needed for ity of 5-7.5-10 MG 14:32: seizure Morales as RECTAL KIT 05 lasting Medica l greater [facility] than 5 min IMITREX 5 Yes as needed Uni vers MG/ACTUATIO 8-21 for ity of N NASAL 14:32: migraines [address] Yes Apply to [place] 0.1% in 8-21 affected ity o f aquaphor 14:32: area(s). [place] ([facility] ) ointment Branch DIASTAT Yes 10mg as Univers ACUDIAL 8-21 needed for ity of 5-7.5-10 MG 14:32: seizure [place]ales as RECTAL KIT 05 lasting Medica l greater [facility] than 5 min IMITREX 5 0 Yes as needed Uni vers MG/ACTUATIO 8-21 for ity of N NASAL 14:32: migraines [address] Yes Apply to [place] 0.1% in 8-21 affected ity o f aquaphor 14:32: area(s). [place] ([facility] ) ointment Branch DIASTAT Yes 10mg as [facility] ACUDIAL 8-21 needed for ity of 5-7.5-10 MG 14:32: seizure [place] as RECTAL KIT 05 lasting Medica l greater [facility] than 5 min IMITREX 5 Yes as needed Uni vers MG/ACTUATIO 8-21 for ity of N NASAL 14:32: migraines [address] Yes Apply to [place] 0.1% in 8-21 affected ity o f aquaphor 14:32: area(s). [place] ([facility] ) ointment Branch IMITREX 5 Yes as needed Uni vers MG/ACTUATIO 8-21 for ity of N NASAL 14:32: migraines [address] IMITREX 5 Yes as needed Uni vers MG/ACTUATIO 8-21 for ity of N NASAL 14:32: migraines [place] [address] Medical Branch IMITREX 5 Yes as needed Uni vers MG/ACTUATIO 8-21 for ity of N NASAL 14:32: migraines [place] [address] Medical Branch IMITREX 5 0 Yes as needed Uni vers MG/ACTUATIO 8-21 for ity of N NASAL 14:32: migraines [address] IMITREX 5 0 Yes as needed Uni vers MG/ACTUATIO 8-21 for ity of N NASAL 14:32: migraines [address] IMITREX 5 Yes as needed Uni vers MG/ACTUATIO 8-21 for ity of N NASAL 14:32: migraines [address] Branch IMITREX 5 2018-0 Yes as needed Uni vers MG/ACTUATIO 8-21 for ity of N NASAL 14:32: migraines [place] [address] Medical Branch IMITREX 5 2018-0 Yes as needed Uni vers MG/ACTUATIO 8-21 for ity of N NASAL 14:32: migraines [place] [address] Medical Branch IMITREX 5 2018-0 Yes as needed Uni vers MG/ACTUATIO 8-21 for ity of N NASAL 14:32: migraines [place] [address] Medical Branch IMITREX 5 2017-0 Yes as needed Uni vers MG/ACTUATIO 8-21 for ity of N NASAL 14:32: migraines [place] [address] Medical Branch IMITREX 5 2017-0 Yes as needed Uni vers MG/ACTUATIO 8-21 for ity of N NASAL 14:32: migraines [place] [address] Medical Branch IMITREX 5 2017-0 Yes as needed Uni vers MG/ACTUATIO 8-21 for ity of N NASAL 14:32: migraines [place] [address] Medical Branch IMITREX 5 2017-0 Yes as needed Uni vers MG/ACTUATIO 8-21 for ity of N NASAL 14:32: migraines [place] [address] Medical Branch IMITREX 5 2017-0 Yes as needed Uni vers MG/ACTUATIO 8-21 for ity of N NASAL 14:32: migraines [address] IMITREX 5 2017-0 Yes as needed Uni vers MG/ACTUATIO 8-21 for ity of N NASAL 14:32: migraines [place] [address] Medical Branch IMITREX 5 2017-0 Yes as needed Uni vers MG/ACTUATIO 8-21 for ity of N NASAL 14:32: migraines [place] [address] Medical Branch IMITREX 5 2018-0 Yes as needed Uni vers MG/ACTUATIO 8-21 for ity of N NASAL 14:32: migraines [place] [address] Medical Branch IMITREX 5 2017-0 Yes as needed Uni vers MG/ACTUATIO 8-21 for ity of N NASAL 14:32: migraines [place] [address] Medical Branch IMITREX 5 2018-0 Yes as needed Uni vers MG/ACTUATIO 8-21 for ity of N NASAL 14:32: migraines [address] IMITREX 5 2017-0 Yes as needed Uni vers MG/ACTUATIO 8-21 for ity of N NASAL 14:32: migraines [place] [address] Medical Branch IMITREX 5 2017-0 Yes as needed Uni vers MG/ACTUATIO 8-21 for ity of N NASAL 14:32: migraines [place] [address] Medical Branch IMITREX 5 0 Yes as needed Uni vers MG/ACTUATIO 8-21 for ity of N NASAL 14:32: migraines [place] [address] Medical Branch IMITREX 5 2017-0 Yes as needed Uni vers MG/ACTUATIO 8-21 for ity of N NASAL 14:32: migraines [place] [address] Medical Branch IMITREX 5 0 Yes as needed Uni vers MG/ACTUATIO 8-21 for ity of N NASAL 14:32: migraines [place] [address] Medical Branch IMITREX 5 0 Yes as needed Uni vers MG/ACTUATIO 8-21 for ity of N NASAL 14:32: migraines [place] [address] Medical Branch IMITREX 5 0 Yes as needed Uni vers MG/ACTUATIO 8-21 for ity of N NASAL 14:32: migraines [place] [address] Medical Branch IMITREX 5 2017-0 Yes as needed Uni vers MG/ACTUATIO 8-21 for ity of N NASAL 14:32: migraines [place] [address] Medical Branch IMITREX 5 0 Yes as needed Uni vers MG/ACTUATIO 8-21 for ity of N NASAL 14:32: migraines [place] [address] Medical Branch IMITREX 5 0 Yes as needed Uni vers MG/ACTUATIO 8-21 for ity of N NASAL 14:32: migraines [place] [address] Medical Branch IMITREX 5 2017-0 Yes as needed Uni vers MG/ACTUATIO 8-21 for ity of N NASAL 14:32: migraines [place] [address] Medical Branch IMITREX 5 0 Yes as needed Uni vers MG/ACTUATIO 8-21 for ity of N NASAL 14:32: migraines [place] [address] Medical Branch IMITREX 5 2017-0 Yes as needed Uni vers MG/ACTUATIO 8-21 for ity of N NASAL 14:32: migraines [place] SPRY 05 Medical Branch IMITREX 5 Yes as needed Uni vers MG/ACTUATIO 8-21 for ity of N NASAL 14:32: migraines [place] SPRY 05 Medical Branch IMITREX 5 Yes as needed Uni vers MG/ACTUATIO 8-21 for ity of N NASAL 14:32: migraines [place] SPRY 05 Medical Branch IMITREX 5 Yes as needed Uni vers MG/ACTUATIO 8-21 for ity of N NASAL 14:32: migraines [place] SPRY 05 Medical Branch IMITREX 5 Yes as needed Uni vers MG/ACTUATIO 8-21 for ity of N NASAL 14:32: [facility] 5 Yes as needed Uni vers MG/ACTUATIO 8-21 for ity of N NASAL 14:32: [facility] DIASTAT Yes 10mg as Univers ACUDIAL 8-21 needed for ity of 5-7.5-10 MG 14:32: seizure Morales as RECTAL KIT 05 lasting Medica l greater Branch than 5 min IMITREX 5 Yes as needed Uni vers MG/ACTUATIO 8-21 for ity of N NASAL 14:32: [facility] triamcinolo Yes Apply to [place] 0.1% in 8-21 affected ity o f aquaphor 14:32: area(s). [place] ([facility] ) ointment Branch busPIRone 2019- No 15mg Take 1 Unive rs 15 mg 8-08 08-17 tablet by ity of tablet 00:00: 00:00 [...] 00 daily. Medical Branch fluticasone 2019- No [id number] 1{puff} Inhale 1 Univers (FLOVENT 03-04 07-01 [...] No 5mg Take 0.5-1 Univers e (ABILIFY) 813 08-21 tablets by i ty of 10 mg 00:00: 00:00 mouth [place] tablet 00 :00 daily. Medical Branch risperiDONE 2018- No .5mg Take 2 Uni vers (RISPERDAL) 7-16 08-28 tablets by i ty of 0.25 mg 00:00: 00:00 mouth 2 [place] tablet 00 :00 (two) Medical times Branch daily. cloNIDine 2017- 2018- No [id number] .1mg Take 1-2 Univers HCl 6-26 10-15 [...] by mouth. ity of tablet 00:00: [place] [facility] amitriptyli 2017-0 Yes 10mg Take 10 mg Univers ne 10 mg 5-22 by mouth. ity of tablet 00:00: Medical Branch amitriptyli 2017-0 Yes 10mg Take 10 mg Univers ne 10 mg 5-22 by mouth. ity of tablet 00:00: [place] [facility] amitriptyli 2017-0 Yes 10mg Take 10 mg Univers ne 10 mg 5-22 by mouth. ity of tablet 00:00: Medical Branch amitriptyli 2017-0 Yes 10mg Take 10 mg Univers ne 10 mg 5-22 by mouth. ity of tablet 00:00: Medical Branch amitriptyli 2017-0 Yes 10mg Take 10 mg Univers ne 10 mg 5-22 by mouth. ity of tablet 00:00: [place] [facility] amitriptyli 2017-0 Yes 10mg Take 10 mg Univers ne 10 mg 5-22 by mouth. ity of tablet 00:00: [place] [facility] amitriptyli 2017-0 Yes 10mg Take 10 mg Univers ne 10 mg 5-22 by mouth. ity of tablet 00:00: [place] [facility] amitriptyli 2017-0 Yes 10mg Take 10 mg Univers ne 10 mg 5-22 by mouth. ity of tablet 00:00: [place] [facility] amitriptyli 2018-0 Yes 10mg Take 10 mg Univers ne 10 mg 5-22 by mouth. ity of tablet 00:00: [place] [facility] amitriptyli 2018-0 Yes 10mg Take 10 mg Univers ne 10 mg 5-22 by mouth. ity of tablet 00:00: [place] [facility] amitriptyli 2018-0 Yes 10mg Take 10 mg Univers ne 10 mg 5-22 by mouth. ity of tablet 00:00: [place] [facility] amitriptyli 2018-0 Yes 10mg Take 10 mg Univers ne 10 mg 5-22 by mouth. ity of tablet 00:00: [place] [facility] amitriptyli 2018-0 Yes 10mg Take 10 mg Univers ne 10 mg 5-22 by mouth. ity of tablet 00:00: [place] [facility] amitriptyli 2018-0 Yes 10mg Take 10 mg Univers ne 10 mg 5-22 by mouth. ity of tablet 00:00: [place] [facility] amitriptyli 2018-0 Yes 10mg Take 10 mg Univers ne 10 mg 5-22 by mouth. ity of tablet 00:00: [place] [facility] amitriptyli 2018-0 Yes 10mg Take 10 mg Univers ne 10 mg 5-22 by mouth. ity of tablet 00:00: [place] [facility] amitriptyli 2018-0 Yes 10mg Take 10 mg Univers ne 10 mg 5-22 by mouth. ity of tablet 00:00: [place] [facility] amitriptyli 2018-0 Yes 10mg Take 10 mg Univers ne 10 mg 5-22 by mouth. ity of tablet 00:00: [place] [facility] amitriptyli 2018-0 Yes 10mg Take 10 mg Univers ne 10 mg 5-22 by mouth. ity of tablet 00:00: [place] [facility] amitriptyli 2018-0 Yes 10mg Take 10 mg Univers ne 10 mg 5-22 by mouth. ity of tablet 00:00: [place] [facility] amitriptyli 2018-0 Yes 10mg Take 10 mg Univers ne 10 mg 5-22 by mouth. ity of tablet 00:00: [place] [facility] amitriptyli 2018-0 Yes 10mg Take 10 mg Univers ne 10 mg 5-22 by mouth. ity of tablet 00:00: [address] amitriptyli 2018-0 Yes 10mg Take 10 mg Univers ne 10 mg 5-22 by mouth. ity of tablet 00:00: [place] [facility] amitriptyli 2018-0 Yes 10mg Take 10 mg Univers ne 10 mg 5-22 by mouth. ity of tablet 00:00: [place] [facility] amitriptyli 2018-0 Yes 10mg Take 10 mg Univers ne 10 mg 5-22 by mouth. ity of tablet 00:00: [place] [facility] amitriptyli 2018-0 Yes 10mg Take 10 mg Univers ne 10 mg 5-22 by mouth. ity of tablet 00:00: [place] [facility] amitriptyli 2018-0 Yes 10mg Take 10 mg Univers ne 10 mg 5-22 by mouth. ity of tablet 00:00: [place] [facility] amitriptyli 2018-0 Yes 10mg Take 10 mg Univers ne 10 mg 5-22 by mouth. ity of tablet 00:00: [place] [facility] amitriptyli 2018-0 Yes 10mg Take 10 mg Univers ne 10 mg 5-22 by mouth. ity of tablet 00:00: [place] [facility] amitriptyli 2018-0 Yes 10mg Take 10 mg Univers ne 10 mg 5-22 by mouth. ity of tablet 00:00: [place] [facility] amitriptyli 2018-0 Yes 10mg Take 10 mg Univers ne 10 mg 5-22 by mouth. ity of tablet 00:00: [place] [facility] amitriptyli 2018-0 Yes 10mg Take 10 mg Univers ne 10 mg 5-22 by mouth. ity of tablet 00:00: [place] [facility] amitriptyli 2018-0 Yes 10mg Take 10 mg Univers ne 10 mg 5-22 by mouth. ity of tablet 00:00: [place] [facility] amitriptyli 2018-0 Yes 10mg Take 10 mg Univers ne 10 mg 5-22 by mouth. ity of tablet 00:00: [place] [facility] amitriptyli 2018-0 Yes 10mg Take 10 mg Univers ne 10 mg 5-22 by mouth. ity of tablet 00:00: [place] [facility] amitriptyli 2018-0 Yes 10mg Take 10 mg Univers ne 10 mg 5-22 by mouth. ity of tablet 00:00: [place] [facility] amitriptyli 2018-0 Yes 10mg Take 10 mg Univers ne 10 mg 5-22 by mouth. ity of tablet 00:00: [place] [facility] amitriptyli 2018-0 Yes 10mg Take 10 mg Univers ne 10 mg 5-22 by mouth. ity of tablet 00:00: [place] [facility] amitriptyli 2018-0 Yes 10mg Take 10 mg Univers ne 10 mg 5-22 by mouth. ity of tablet 00:00: [place] [facility] amitriptyli 2018-0 Yes 10mg Take 10 mg Univers ne 10 mg 5-22 by mouth. ity of tablet 00:00: [place] [facility] amitriptyli 2018-0 Yes 10mg Take 10 mg Univers ne 10 mg 5-22 by mouth. ity of tablet 00:00: [place] [facility] amitriptyli 2018-0 Yes 10mg Take 10 mg Univers ne 10 mg 5-22 by mouth. ity of tablet 00:00: [place] [facility] amitriptyli 2018-0 Yes 10mg Take 10 mg Univers ne 10 mg 5-22 by mouth. ity of tablet 00:00: [place] [facility] amitriptyli 2018-0 Yes 10mg Take 10 mg Univers ne 10 mg 5-22 by mouth. ity of tablet 00:00: [place] [facility] amitriptyli 2018-0 Yes 10mg Take 10 mg Univers ne 10 mg 5-22 by mouth. ity of tablet 00:00: [place] [facility] amitriptyli 2018-0 Yes 10mg Take 10 mg Univers ne 10 mg 5-22 by mouth. ity of tablet 00:00: [place] [facility] amitriptyli 2018-0 Yes 10mg Take 10 mg Univers ne 10 mg 5-22 by mouth. ity of tablet 00:00: [place] [facility] amitriptyli 2018-0 Yes 10mg Take 10 mg Univers ne 10 mg 5-22 by mouth. ity of tablet 00:00: [place] [facility] amitriptyli 2018-0 3- No 10mg Take 10 mg Univers ne 10 mg 5-22 08-18 by mouth. ity o f tablet 00:00: 00:00 [place] 00 :00 [facility] amitriptyli 2018-0 3- No 10mg Take 10 mg Univers ne 10 mg 12-07 by mouth. ity o f tablet 00:00: 00:00 [place] 00 :00 Medical Branch amitriptyli 2022- No 10mg Take 10 mg Univers ne 10 mg 12-07 by mouth. ity o f tablet 00:00: 00:00 [place] 00 :00 Medical Branch amitriptyli 2022- No 10mg Take 10 mg Univers ne 10 mg 12-07 by mouth. ity o f tablet 00:00: 00:00 [place] 00 :00 Medical Branch amphetamine 2018- No 50mg Take 2 Uni vers -dextroamph [...] ty of mL solution 00:00: 00:00 (two) [place] linda 00 :00 times Medical daily. Branch busPIRone 2017- No 15mg Take 1 Unive rs 15 mg 09-08 tablet by ity of tablet 00:00: 00:00 mouth 2 [place] 00 :00 (two) Medical times Branch daily. risperiDONE 2014-07 Yes .5mg Take 0.5 [place] 0.5 mg 0-15 mg by ity of tablet 00:00: mouth. [place] [facility] risperiDONE 2014-07 Yes .5mg Take 0.5 [place] 0.5 mg 0-15 mg by ity of tablet 00:00: mouth. [place] [facility] risperiDONE 2014-07 Yes .5mg Take 0.5 [place] 0.5 mg 0-15 mg by ity of tablet 00:00: mouth. [place] [address] Medical Branch risperiDONE 2014-07 Yes .5mg Take 0.5 [place] 0.5 mg 0-15 mg by ity of tablet 00:00: mouth. [address] risperiDONE 2014- Yes .5mg Take 0.5 [place] 0.5 mg 0-15 mg by ity of tablet 00:00: mouth. [address] risperiDONE 2014-07 Yes .5mg Take 0.5 [place] 0.5 mg 0-15 mg by ity of tablet 00:00: mouth. [address] risperiDONE 2014-07 Yes .5mg Take 0.5 [place] 0.5 mg 0-15 mg by ity of tablet 00:00: mouth. [address] risperiDONE 2014-07 Yes .5mg Take 0.5 [place] 0.5 mg 0-15 mg by ity of tablet 00:00: mouth. [address] risperiDONE 2014-07 Yes .5mg Take 0.5 [place] 0.5 mg 0-15 mg by ity of tablet 00:00: mouth. [address] risperiDONE 2014-07 Yes .5mg Take 0.5 [place] 0.5 mg 0-15 mg by ity of tablet 00:00: mouth. [address] risperiDONE 2014-07 Yes .5mg Take 0.5 [place] 0.5 mg 0-15 mg by ity of tablet 00:00: mouth. [address] risperiDONE 2014-07 Yes .5mg Take 0.5 [place] 0.5 mg 0-15 mg by ity of tablet 00:00: mouth. [address] risperiDONE 2014-07 Yes .5mg Take 0.5 [place] 0.5 mg 0-15 mg by ity of tablet 00:00: mouth. [address] risperiDONE 2014-07 Yes .5mg Take 0.5 [place] 0.5 mg 0-15 mg by ity of tablet 00:00: mouth. [address] risperiDONE 2014-07 Yes .5mg Take 0.5 [place] 0.5 mg 0-15 mg by ity of tablet 00:00: mouth. [address] risperiDONE 2014-07 Yes .5mg Take 0.5 [place] 0.5 mg 0-15 mg by ity of tablet 00:00: mouth. [address] risperiDONE 2014-07 Yes .5mg Take 0.5 [place] 0.5 mg 0-15 mg by ity of tablet 00:00: mouth. [address] risperiDONE 2014-07 Yes .5mg Take 0.5 [place] 0.5 mg 0-15 mg by ity of tablet 00:00: mouth. [address] risperiDONE 2014-07 Yes .5mg Take 0.5 [place] 0.5 mg 0-15 mg by ity of tablet 00:00: mouth. [address] risperiDONE 2014-07 Yes .5mg Take 0.5 [place] 0.5 mg 0-15 mg by ity of tablet 00:00: mouth. [address] risperiDONE 2014-07 Yes .5mg Take 0.5 [place] 0.5 mg 0-15 mg by ity of tablet 00:00: mouth. [address] risperiDONE 2014-07 Yes .5mg Take 0.5 [place] 0.5 mg 0-15 mg by ity of tablet 00:00: mouth. [address] risperiDONE 2014-07 Yes .5mg Take 0.5 [place] 0.5 mg 0-15 mg by ity of tablet 00:00: mouth. [address] risperiDONE 2014-07 Yes .5mg Take 0.5 [place] 0.5 mg 0-15 mg by ity of tablet 00:00: mouth. [address] risperiDONE 2014-07 Yes .5mg Take 0.5 [place] 0.5 mg 0-15 mg by ity of tablet 00:00: mouth. [address] risperiDONE 2014-07 Yes .5mg Take 0.5 [place] 0.5 mg 0-15 mg by ity of tablet 00:00: mouth. [address] risperiDONE 2014-07 Yes .5mg Take 0.5 [place] 0.5 mg 0-15 mg by ity of tablet 00:00: mouth. [address] risperiDONE 2014-07 Yes .5mg Take 0.5 [place] 0.5 mg 0-15 mg by ity of tablet 00:00: mouth. [address] risperiDONE 2014-07 Yes .5mg Take 0.5 [place] 0.5 mg 0-15 mg by ity of tablet 00:00: mouth. [address] risperiDONE 2014-07 Yes .5mg Take 0.5 [place] 0.5 mg 0-15 mg by ity of tablet 00:00: mouth. [address] risperiDONE 2014-07 Yes .5mg Take 0.5 [place] 0.5 mg 0-15 mg by ity of tablet 00:00: mouth. [address] risperiDONE 2014-07 Yes .5mg Take 0.5 [place] 0.5 mg 0-15 mg by ity of tablet 00:00: mouth. [address] risperiDONE 2014-07 Yes .5mg Take 0.5 [place] 0.5 mg 0-15 mg by ity of tablet 00:00: mouth. [address] risperiDONE 2014-07 Yes .5mg Take 0.5 [place] 0.5 mg 0-15 mg by ity of tablet 00:00: mouth. [address] risperiDONE 2014-07 Yes .5mg Take 0.5 [place] 0.5 mg 0-15 mg by ity of tablet 00:00: mouth. [address] risperiDONE 2014-07 Yes .5mg Take 0.5 [place] 0.5 mg 0-15 mg by ity of tablet 00:00: mouth. [address] risperiDONE 2014-07 Yes .5mg Take 0.5 [place] 0.5 mg 0-15 mg by ity of tablet 00:00: mouth. [address] risperiDONE 2014-07 Yes .5mg Take 0.5 [place] 0.5 mg 0-15 mg by ity of tablet 00:00: mouth. [address] risperiDONE 2014-07 Yes .5mg Take 0.5 [place] 0.5 mg 0-15 mg by ity of tablet 00:00: mouth. [address] risperiDONE 2014-07 Yes .5mg Take 0.5 [place] 0.5 mg 0-15 mg by ity of tablet 00:00: mouth. [address] risperiDONE 2014-07 Yes .5mg Take 0.5 [place] 0.5 mg 0-15 mg by ity of tablet 00:00: mouth. [address] risperiDONE 2014-07 Yes .5mg Take 0.5 [place] 0.5 mg 0-15 mg by ity of tablet 00:00: mouth. [address] risperiDONE 2014-07 Yes .5mg Take 0.5 [place] 0.5 mg 0-15 mg by ity of tablet 00:00: mouth. [address] risperiDONE 2014-07 Yes .5mg Take 0.5 [place] 0.5 mg 0-15 mg by ity of tablet 00:00: mouth. [address] risperiDONE 2014-07 Yes .5mg Take 0.5 [place] 0.5 mg 0-15 mg by ity of tablet 00:00: mouth. [address] risperiDONE 2014-07 Yes .5mg Take 0.5 [place] 0.5 mg 0-15 mg by ity of tablet 00:00: mouth. [address] risperiDONE 2014-07 Yes .5mg Take 0.5 [place] 0.5 mg 0-15 mg by ity of tablet 00:00: mouth. [address] risperiDONE 2014-07 Yes .5mg Take 0.5 [place] 0.5 mg 0-15 mg by ity of tablet 00:00: mouth. [address] risperiDONE 2014-07 Yes .5mg Take 0.5 [place] 0.5 mg 0-15 mg by ity of tablet 00:00: mouth. [address] risperiDONE 2014-07 Yes .5mg Take 0.5 [place] 0.5 mg 0-15 mg by ity of tablet 00:00: mouth. [address] risperiDONE 2014-07 Yes .5mg Take 0.5 [place] 0.5 mg 0-15 mg by ity of tablet 00:00: mouth. [address] risperiDONE 2014-07 Yes .5mg Take 0.5 [place] 0.5 mg 0-15 mg by ity of tablet 00:00: mouth. [address] risperiDONE 2014-07 Yes .5mg Take 0.5 [place] 0.5 mg 0-15 mg by ity of tablet 00:00: mouth. [address] risperiDONE 2014-07 Yes .5mg Take 0.5 [place] 0.5 mg 0-15 mg by ity of tablet 00:00: mouth. [address] risperiDONE 2014-07 Yes .5mg Take 0.5 [place] 0.5 mg 0-15 mg by ity of tablet 00:00: mouth. [address] risperiDONE 2014-07 Yes .5mg Take 0.5 [place] 0.5 mg 0-15 mg by ity of tablet 00:00: mouth. [address] risperiDONE 2014-07 Yes .5mg Take 0.5 [place] 0.5 mg 0-15 mg by ity of tablet 00:00: mouth. [address] risperiDONE 2014-07 Yes .5mg Take 0.5 [place] 0.5 mg 0-15 mg by ity of tablet 00:00: mouth. [address] risperiDONE 2014-07 Yes .5mg Take 0.5 [place] 0.5 mg 0-15 mg by ity of tablet 00:00: mouth. [address] risperiDONE 2014-07 Yes .5mg Take 0.5 [place] 0.5 mg 0-15 mg by ity of tablet 00:00: mouth. [address] risperiDONE 2014-07 Yes .5mg Take 0.5 [place] 0.5 mg 0-15 mg by ity of tablet 00:00: mouth. [address] risperiDONE 2014-07 Yes .5mg Take 0.5 [place] 0.5 mg 0-15 mg by ity of tablet 00:00: mouth. [address] risperiDONE 2014-07 Yes .5mg Take 0.5 [place] 0.5 mg 0-15 mg by ity of tablet 00:00: mouth. [address] risperiDONE 2014-07 Yes .5mg Take 0.5 [place] 0.5 mg 0-15 mg by ity of tablet 00:00: mouth. [address] risperiDONE 2014-07 Yes .5mg Take 0.5 [place] 0.5 mg 0-15 mg by ity of tablet 00:00: mouth. [address] risperiDONE 2014-07 Yes .5mg Take 0.5 [place] 0.5 mg 0-15 mg by ity of tablet 00:00: mouth. [address] risperiDONE 2014-07 Yes .5mg Take 0.5 [place] 0.5 mg 0-15 mg by ity of tablet 00:00: mouth. [address] risperiDONE 2014-07 Yes .5mg Take 0.5 [place] 0.5 mg 0-15 mg by ity of tablet 00:00: mouth. [address] risperiDONE 2014-07 Yes .5mg Take 0.5 [place] 0.5 mg 0-15 mg by ity of tablet 00:00: mouth. [address] risperiDONE 2014-07 Yes .5mg Take 0.5 [place] 0.5 mg 0-15 mg by ity of tablet 00:00: mouth. [address] risperiDONE 2014-07 Yes .5mg Take 0.5 [place] 0.5 mg 0-15 mg by ity of tablet 00:00: mouth. [address] risperiDONE 2014-07 Yes .5mg Take 0.5 [place] 0.5 mg 0-15 mg by ity of tablet 00:00: mouth. [address] risperiDONE 2014-07 Yes .5mg Take 0.5 [place] 0.5 mg 0-15 mg by ity of tablet 00:00: mouth. [address] risperiDONE 2014-07 Yes .5mg Take 0.5 [place] 0.5 mg 0-15 mg by ity of tablet 00:00: mouth. [address] risperiDONE 2014-07 Yes .5mg Take 0.5 [place] 0.5 mg 0-15 mg by ity of tablet 00:00: mouth. [address] risperiDONE 2014-07 Yes .5mg Take 0.5 [place] 0.5 mg 0-15 mg by ity of tablet 00:00: mouth. [address] risperiDONE 2014-07 Yes .5mg Take 0.5 [place] 0.5 mg 0-15 mg by ity of tablet 00:00: mouth. [address] risperiDONE 2014-07 Yes .5mg Take 0.5 [place] 0.5 mg 0-15 mg by ity of tablet 00:00: mouth. [address] risperiDONE 2014-07 Yes .5mg Take 0.5 [place] 0.5 mg 0-15 mg by ity of tablet 00:00: mouth. [address] risperiDONE 2014-07 Yes .5mg Take 0.5 [place] 0.5 mg 0-15 mg by ity of tablet 00:00: mouth. [address] risperiDONE 2014-07 Yes .5mg Take 0.5 [place] 0.5 mg 0-15 mg by ity of tablet 00:00: mouth. [address] risperiDONE 2014-07 Yes .5mg Take 0.5 [place] 0.5 mg 0-15 mg by ity of tablet 00:00: mouth. [address] risperiDONE 2014-07 Yes .5mg Take 0.5 [place] 0.5 mg 0-15 mg by ity of tablet 00:00: mouth. [place] [facility] risperiDONE 2015- Yes .5mg Take 0.5 [place] 0.5 mg 0-15 mg by ity of tablet 00:00: mouth. [place] [facility] risperiDONE 2015- Yes .5mg Take 0.5 [place] 0.5 mg 0-15 mg by ity of tablet 00:00: mouth. [place] [facility] risperiDONE 2014- Yes .5mg Take 0.5 [place] 0.5 mg 0-15 mg by ity of tablet 00:00: mouth. [place] [facility] risperiDONE 2014- Yes .5mg Take 0.5 [place] 0.5 mg 0-15 mg by ity of tablet 00:00: mouth. [place] [facility] risperiDONE 2014- Yes .5mg Take 0.5 [place] 0.5 mg 0-15 mg by ity of tablet 00:00: mouth. [place] [facility] risperiDONE 2014- Yes .5mg Take 1 [facility] ers 0.5 mg 0-15 tablet by ity of tablet 00:00: mouth in [place] [address] the Medical morning Branch and 1 tablet in the evening. risperiDONE 2014- Yes .5mg Take 1 [facility] ers 0.5 mg 0-15 tablet by ity of tablet 00:00: mouth in [place] [address] the Medical morning Branch and 1 tablet in the evening. risperiDONE 2014- Yes .5mg Take 1 [facility] ers 0.5 mg 0-15 tablet by ity of tablet 00:00: mouth in [place] [address] the Medical morning Branch and 1 tablet in the evening. risperiDONE 2014- Yes .5mg Take 1 [facility] ers 0.5 mg 0-15 tablet by ity of tablet 00:00: mouth in [place] [address] the Medical morning Branch and 1 tablet in the evening. risperiDONE 2014- Yes .5mg Take 1 [facility] ers 0.5 mg 0-15 tablet by ity of tablet 00:00: mouth in [place] [address] the Medical morning Branch and 1 tablet in the evening. risperiDONE 2014- Yes .5mg Take 1 [facility] ers 0.5 mg 0-15 tablet by ity of tablet 00:00: mouth in [address] Medical morning [place] and 1 tablet in the evening. risperiDONE 2014- Yes .5mg Take 1 [facility] ers 0.5 mg 0-15 tablet by ity of tablet 00:00: mouth in [place] 00 the Medical morning Branch and 1 tablet in the evening. risperiDONE 2015-1 Yes .5mg Take 1 [facility] ers 0.5 mg 0-15 tablet by ity of tablet 00:00: mouth in [place] 00 the Medical morning Branch and 1 tablet in the evening. risperiDONE 2015-1 Yes .5mg Take 1 [facility] ers 0.5 mg 0-15 tablet by ity of tablet 00:00: mouth in [place] 00 the Medical morning Branch and 1 tablet in the evening. risperiDONE 2015-1 Yes .5mg Take 1 [facility] ers 0.5 mg 0-15 tablet by ity of tablet 00:00: mouth in [place] [address] the Medical morning Branch and 1 tablet in the evening. risperiDONE 2015-1 Yes .5mg Take 1 [facility] ers 0.5 mg 0-15 tablet by ity of tablet 00:00: mouth in [place] [address] the Medical morning Branch and 1 tablet in the evening. risperiDONE 2015-1 Yes .5mg Take 1 [facility] ers 0.5 mg 0-15 tablet by ity of tablet 00:00: mouth in [place] [address] the Medical morning Branch and 1 tablet in the evening. risperiDONE 2015-1 Yes .5mg Take 1 [facility] ers 0.5 mg 0-15 tablet by ity of tablet 00:00: mouth in [place] [address] the Medical morning Branch and 1 tablet in the evening. risperiDONE 2015-1 Yes .5mg Take 1 [facility] ers 0.5 mg 0-15 tablet by ity of tablet 00:00: mouth in [place] [address] the Medical morning Branch and 1 tablet in the evening. risperiDONE 2015-1 Yes .5mg Take 1 [facility] ers 0.5 mg 0-15 tablet by ity of tablet 00:00: mouth in [place] [address] the Medical morning Branch and 1 tablet in the evening. risperiDONE 2015-1 Yes .5mg Take 1 [facility] ers 0.5 mg 0-15 tablet by ity of tablet 00:00: mouth in [place] [address] the Medical morning Branch and 1 tablet in the evening. risperiDONE 2015-1 Yes .5mg Take 1 [facility] ers 0.5 mg 0-15 tablet by ity of tablet 00:00: mouth in [place] [address] the Medical morning Branch and 1 tablet in the evening. risperiDONE 2015-1 Yes .5mg Take 1 [facility] ers 0.5 mg 0-15 tablet by ity of tablet 00:00: mouth in [place] [address] the Medical morning Branch and 1 tablet in the evening. risperiDONE 2015-1 Yes .5mg Take 1 [facility] ers 0.5 mg 0-15 tablet by ity of tablet 00:00: mouth in [place] 00 the Medical morning Branch and 1 tablet in the evening. risperiDONE 2015-1 Yes .5mg Take 1 [facility] ers 0.5 mg 0-15 tablet by ity of tablet 00:00: mouth in [place] 00 the Medical morning Branch and 1 tablet in the evening. risperiDONE 2015-1 Yes .5mg Take 1 [facility] ers 0.5 mg 0-15 tablet by ity of tablet 00:00: mouth in [place] 00 the Medical morning Branch and 1 tablet in the evening. risperiDONE 2015-1 Yes .5mg Take 1 [facility] ers 0.5 mg 0-15 tablet by ity of tablet 00:00: mouth in [place] 00 the Medical morning Branch and 1 tablet in the evening. risperiDONE 2015-1 Yes .5mg Take 1 [facility] ers 0.5 mg 0-15 tablet by ity of tablet 00:00: mouth in [place] 00 the Medical morning Branch and 1 tablet in the evening. risperiDONE 2015-1 Yes .5mg Take 1 [facility] ers 0.5 mg 0-15 tablet by ity of tablet 00:00: mouth in [place] 00 the Medical morning Branch and 1 tablet in the evening. risperiDONE 2015-1 Yes .5mg Take 1 [facility] ers 0.5 mg 0-15 tablet by ity of tablet 00:00: mouth in [place] 00 the Medical morning Branch and 1 tablet in the evening. risperiDONE 2015-1 Yes .5mg Take 1 [facility] ers 0.5 mg 0-15 tablet by ity of tablet 00:00: mouth in [place] 00 the Medical morning Branch and 1 tablet in the evening. risperiDONE 2015-1 Yes .5mg Take 1 [facility] ers 0.5 mg 0-15 tablet by ity of tablet 00:00: mouth in [place] 00 the Medical morning Branch and 1 tablet in the evening. risperiDONE 2015-1 Yes .5mg Take 1 [facility] ers 0.5 mg 0-15 tablet by ity of tablet 00:00: mouth in [place] 00 the Medical morning Branch and 1 tablet in the evening. risperiDONE 2015-1 Yes .5mg Take 1 [facility] ers 0.5 mg 0-15 tablet by ity of tablet 00:00: mouth in [place] 00 the Medical morning Branch and 1 tablet in the evening. risperiDONE 2015-1 Yes .5mg Take 1 [facility] ers 0.5 mg 0-15 tablet by ity of tablet 00:00: mouth in [place] 00 the Medical morning Branch and 1 tablet in the evening. risperiDONE 2015-1 Yes .5mg Take 1 [facility] ers 0.5 mg 0-15 tablet by ity of tablet 00:00: mouth in [place] 00 the Medical morning Branch and 1 tablet in the evening. risperiDONE 2015-1 Yes .5mg Take 1 [facility] ers 0.5 mg 0-15 tablet by ity of tablet 00:00: mouth in [place] 00 the Medical morning Branch and 1 tablet in the evening. risperiDONE 2015-1 Yes .5mg Take 1 [facility] ers 0.5 mg 0-15 tablet by ity of tablet 00:00: mouth in [place] 00 the Medical morning Branch and 1 tablet in the evening. risperiDONE 2015-1 Yes .5mg Take 1 [facility] ers 0.5 mg 0-15 tablet by ity of tablet 00:00: mouth in [place] 00 the Medical morning Branch and 1 tablet in the evening. risperiDONE 2014- Yes .5mg Take 1 [facility] ers 0.5 mg 0-15 tablet by ity of tablet 00:00: mouth in [place] 00 the Medical morning Branch and 1 tablet in the evening. risperiDONE 2015-1 Yes .5mg Take 1 [facility] ers 0.5 mg 0-15 tablet by ity of tablet 00:00: mouth in [place] 00 the Medical morning Branch and 1 tablet in the evening. risperiDONE 2015-1 Yes .5mg Take 1 [facility] ers 0.5 mg 0-15 tablet by ity of tablet 00:00: mouth in [place] 00 the Medical morning Branch and 1 tablet in the evening. risperiDONE 2015-1 Yes .5mg Take 1 [facility] ers 0.5 mg 0-15 tablet by ity of tablet 00:00: mouth in [place] 00 the Medical morning Branch and 1 tablet in the evening. risperiDONE 2015-1 Yes .5mg Take 1 [facility] ers 0.5 mg 0-15 tablet by ity of tablet 00:00: mouth in [place] 00 the Medical morning Branch and 1 tablet in the evening. risperiDONE 2015-1 Yes .5mg Take 1 [facility] ers 0.5 mg 0-15 tablet by ity of tablet 00:00: mouth in [place] 00 the Medical morning Branch and 1 tablet in the evening. risperiDONE 2015-1 Yes .5mg Take 1 [facility] ers 0.5 mg 0-15 tablet by ity of tablet 00:00: mouth in [place] 00 the Medical morning Branch and 1 tablet in the evening. risperiDONE 2015-1 Yes .5mg Take 1 [facility] ers 0.5 mg 0-15 tablet by ity of tablet 00:00: mouth in [place] 00 the Medical morning Branch and 1 tablet in the evening. risperiDONE 2015-1 Yes .5mg Take 1 [facility] ers 0.5 mg 0-15 tablet by ity of tablet 00:00: mouth in [place] 00 the Medical morning Branch and 1 tablet in the evening. risperiDONE 2015-1 Yes .5mg Take 1 [facility] ers 0.5 mg 0-15 tablet by ity of tablet 00:00: mouth in [place] 00 the Medical morning Branch and 1 tablet in the evening. risperiDONE 2015-1 Yes .5mg Take 1 [facility] ers 0.5 mg 0-15 tablet by ity of tablet 00:00: mouth in [place] 00 the Medical morning Branch and 1 tablet in the evening. risperiDONE 2015-1 Yes .5mg Take 1 [facility] ers 0.5 mg 0-15 tablet by ity of tablet 00:00: mouth in [place] 00 the Medical morning Branch and 1 tablet in the evening. risperiDONE 2015-1 Yes .5mg Take 1 [facility] ers 0.5 mg 0-15 tablet by ity of tablet 00:00: mouth in [place] [address] the Medical morning Branch and 1 tablet in the evening. risperiDONE 2015-1 Yes .5mg Take 1 [facility] ers 0.5 mg 0-15 tablet by ity of tablet 00:00: mouth in [place] 00 the Medical morning Branch and 1 tablet in the evening. risperiDONE 2015-1 Yes .5mg Take 1 [facility] ers 0.5 mg 0-15 tablet by ity of tablet 00:00: mouth in [place] 00 the Medical morning Branch and 1 tablet in the evening. risperiDONE 2015-1 Yes .5mg Take 1 [facility] ers 0.5 mg 0-15 tablet by ity of tablet 00:00: mouth in [place] 00 the Medical morning Branch and 1 tablet in the evening. risperiDONE 2015-1 Yes .5mg Take 1 [facility] ers 0.5 mg 0-15 tablet by ity of tablet 00:00: mouth in [place] 00 the Medical morning Branch and 1 tablet in the evening. risperiDONE 2015-1 Yes .5mg Take 1 [facility] ers 0.5 mg 0-15 tablet by ity of tablet 00:00: mouth in [place] 00 the Medical morning Branch and 1 tablet in the evening. risperiDONE 2015-1 Yes .5mg Take 1 [facility] ers 0.5 mg 0-15 tablet by ity of tablet 00:00: mouth in [place] [address] the Medical morning Branch and 1 tablet in the evening. risperiDONE 2014-07 Yes .5mg Take 1 [facility] ers 0.5 mg 0-15 tablet by ity of tablet 00:00: mouth in [place] [address] the Medical morning Branch and 1 tablet in the evening. risperiDONE 2014-07 Yes .5mg Take 1 [facility] ers 0.5 mg 0-15 tablet by ity of tablet 00:00: mouth in [place] [address] the Medical morning Branch and 1 tablet in the evening. risperiDONE 2014-07 Yes .5mg Take 1 [facility] ers 0.5 mg 0-15 tablet by ity of tablet 00:00: mouth in [place] [address] the Medical morning Branch and 1 tablet in the evening. ranitidine 0 Yes Univers (ZANTAC) 15 7-31 ity of mg/mL syrup 00:00: [place] 00 [facility] ranitidine Yes Univers (ZANTAC) 15 7-31 ity of mg/mL syrup 00:00: [place] [facility] ranitidine 0 Yes Univers (ZANTAC) 15 7-31 ity of mg/mL syrup 00:00: [place] 00 Medical Branch ranitidine 0 Yes Univers (ZANTAC) 15 7-31 ity of mg/mL syrup 00:00: [place] 00 Medical Branch ranitidine 0 Yes Univers (ZANTAC) 15 7-31 ity of mg/mL syrup 00:00: [place] 00 [facility] ranitidine 0 Yes Univers (ZANTAC) 15 7-31 ity of mg/mL syrup 00:00: [place] 00 Medical Branch ranitidine 0 Yes Univers (ZANTAC) 15 7-31 ity of mg/mL syrup 00:00: [place] [facility] ranitidine 0 Yes Univers (ZANTAC) 15 7-31 ity of mg/mL syrup 00:00: [place] [facility] ranitidine 0 Yes Univers (ZANTAC) 15 7-31 ity of mg/mL syrup 00:00: [place] [facility] ranitidine 0 Yes Univers (ZANTAC) 15 7-31 ity of mg/mL syrup 00:00: [place] 00 Medical Branch ranitidine 0 Yes Univers [...] Medical Branch ranitidine Yes Univers (ZANTAC) 15 - ity of mg/mL syrup 00:00: [place] 00 Medical Branch ranitidine 0 2022- No Univer s (ZANTAC) 15 02-15 ity of mg/mL syrup 00:00: 00:00 [place] 00 :00 Medical Branch ranitidine 0 2022- [...] Branch DDAVP 10 2019- No Univers mcg/spray 11-06-24 ity of solution 00:00: 00:00 [place] 00 [...] ity of :00: [place] [facility] MULTIVITAMI 2008-0 Yes one daily [...] ity of :00: [place] [facility] MULTIVITAMI 2008-0 Yes one daily U nivers N ORAL TAB 2-19 ity of 00:00: [place] [facility] MULTIVITAMI 2009-0 Yes one daily U nivers N ORAL TAB 2-19 ity of 00:00: [place] [facility] MULTIVITAMI 2008-0 Yes one daily U nivers N ORAL TAB 2-19 ity of 00:00: [place] [facility] MULTIVITAMI 2009-0 Yes one daily U nivers N ORAL TAB 2-19 ity of 00:00: [place] [facility] MULTIVITAMI 2008-0 Yes one daily [...] ity of 00:00: [place] [facility] MULTIVITAMI 2008-0 Yes one daily U nivers N ORAL TAB 2-19 ity of 00:00: [place] 00 Medical Branch MULTIVITAMI 2008-0 Yes one daily U nivers N ORAL TAB 2-19 ity of 00:00: [place] [facility] MULTIVITAMI 2008-0 Yes one daily [...] N ORAL TAB 2-19 ity of 00:00: [place] [address] Medical Branch MULTIVITAMI 2009-0 Yes one daily [...] ity of 00:00: [place] [facility] MULTIVITAMI 2008-0 Yes one daily U nivers N ORAL TAB 2-19 ity of :00: [place] [facility] MULTIVITAMI 2008-0 Yes one daily U nivers N ORAL TAB 2-19 ity of 00:00: [place] [facility] MULTIVITAMI 2008-0 Yes one daily U nivers N ORAL TAB 2-19 ity of :00: [place] [facility] MULTIVITAMI 2008-0 Yes one daily U nivers N ORAL TAB 2-19 ity of 00:00: [place] [facility] MULTIVITAMI 2008-0 Yes one daily U nivers N ORAL TAB 2-19 ity of 00:00: [place] [facility] MULTIVITAMI 2009-0 Yes one daily U nivers N ORAL TAB 2-19 ity of :00: [place] [facility] MULTIVITAMI 2008-0 Yes one daily [...] nivers N ORAL TAB 2-19 ity of 00:: [place] [facility] MULTIVITAMI 2009-0 Yes one daily U nivers N ORAL TAB 2-19 ity of :: [place] [facility] MULTIVITAMI 2008-0 Yes one daily U nivers N ORAL TAB 2-19 ity of 00:00: [place] [facility] MULTIVITAMI 2009-0 Yes one daily U nivers N ORAL TAB 2-19 ity of :00: [place] [facility] MULTIVITAMI 2008-0 Yes one daily [...] ity of 00:00: [place] [facility] MULTIVITAMI 2008-0 Yes one daily U nivers N ORAL TAB 2-19 ity of 00:00: [place] [facility] MULTIVITAMI 2008-0 Yes one daily [...] ity of 00:00: [place] [facility] MULTIVITAMI 2008-0 Yes one daily [...] ity of 00:00: [place] [facility] MULTIVITAMI 2008-0 Yes one daily [...] N ORAL TAB 2-19 ity of 00:00: [place] [address] Medical Branch MULTIVITAMI 2009-0 Yes one daily [...] ity of 00:00: [place] [facility] MULTIVITAMI 2008-0 Yes one daily U nivers N ORAL TAB 2-19 ity of :00: [place] [facility] MULTIVITAMI 2009-0 Yes one daily U nivers N ORAL TAB 2-19 ity of 00:00: [place] [facility] MULTIVITAMI 2008-0 Yes one daily U nivers N ORAL TAB 2-19 ity of 00:00: [place] 00 Medical Branch MULTIVITAMI 2009-0 Yes one daily U nivers N ORAL TAB 2-19 ity of 00:00: [place] [facility] MULTIVITAMI 2008-0 Yes one daily [...] of 00:00: [place] 00 Medical Branch MULTIVITAMI 2009 Yes one daily [...] ORAL TAB 2-19 ity of 00:00: [place] [facility] Immunizations Ordered Filled Immunization Date Status Comments [facility] e Immunization Name Name HPV9 2016-04-01 Completed University of 00:00:00 [facility] HPV9 2016-04-01 Completed University of 00:00:00 [facility] HPV9 2016-04-01 Completed University of 00:00:00 [facility] HPV9 2016-04-01 Completed University of 00:00:00 [facility] HPV9 2016-04-01 Completed University of 00:00:00 [facility] HPV9 2016-04-01 Completed University of 00:00:00 [facility] HPV9 2016-04-01 Completed University of 00:00:00 [facility] HPV9 2016-04-01 Completed University of 00:00:00 [facility] HPV9 2016-04-01 Completed University of 00:00:00 [facility] HPV9 2016-04-01 Completed University of 00:00:00 [facility] HPV9 2016-04-01 Completed University of 00:00:00 [facility] HPV9 2016-04-01 Completed University of 00:00:00 [place] [...] Branch HPV9 2016-04-01 Completed University of 00:00:00 [facility] HPV9 2016-04-01 Completed University of 00:00:00 [facility] HPV9 2016-04-01 Completed University of [...] Branch HPV9 2016-04-01 Completed University of 00:00:00 [facility] HPV9 2016-04-01 Completed University of [...] Branch HPV9 2016-04-01 Completed University of 00:00:00 [facility] HPV9 2016-04-01 Completed University of [...] Branch HPV9 2015-11-18 Completed University of 00:00:00 [facility] HPV9 2015-11-18 Completed University of 00:00:00 [facility] HPV9 2015-11-18 Completed University of 00:00:00 [facility] HPV9 2015-11-18 Completed University of 00:00:00 [facility] HPV9 2015-11-18 Completed University of 00:00:00 [facility] HPV9 2015-11-18 Completed University of 00:00:00 [facility] HPV9 2015-11-18 Completed University of 00:00:00 [facility] HPV9 2015-11-18 Completed University of 00:00:00 [facility] HPV9 2015-11-18 Completed University of 00:00:00 [facility] HPV9 2015-11-18 Completed University of 00:00:00 [facility] HPV9 2015-11-18 Completed University of 00:00:00 [facility] HPV9 2015-11-18 Completed University of 00:00:00 [facility] HPV9 2015-11-18 Completed University of 00:00:00 [place] [facility] HPV9 2015-11-18 Completed University of 00:00:00 [place] [facility] HPV9 2015-11-18 Completed University of 00:00:00 [facility] HPV9 2015-11-18 Completed [facility] 00:00:00 [facility] HPV9 2015-11-18 Completed [facility] [...] Branch HPV9 2015-11-18 Completed [facility] 00:00:00 [facility] HPV9 2015-11-18 Completed [facility] 00:00:00 [facility] HPV9 2015-11-18 Completed [facility] [...] Branch HPV9 2015-11-18 Completed [facility] 00:00:00 [facility] HPV9 2015-11-18 Completed [facility] 00:00:00 [facility] HPV9 2015-11-18 Completed [facility] 00:00:00 [facility] HPV9 2015-11-18 Completed [facility] 00:00:00 [facility] HPV9 2015-11-18 Completed [facility] 00:00:00 [facility] HPV9 2015-11-18 Completed [facility] [...] Branch HPV9 2015-11-18 Completed [facility] 00:00:00 [facility] HPV9 2015-11-18 Completed [facility] 00:00:00 [facility] HPV9 2015-11-18 Completed [facility] 00:00:00 [facility] HPV9 2015-11-18 Completed [facility] 00:00:00 [facility] HPV9 2015-11-18 Completed [facility] 00[facility]00:00 [facility] HPV9 2015-11-18 Completed [facility] 00:00:00 [facility] HPV9 2015-11-18 Completed [facility] 00:00:00 [facility] HPV9 2015-11-18 Completed [facility] 00:00:00 [facility] HPV9 2015-11-18 Completed [facility] 00:00:00 [facility] HPV9 2015-11-18 Completed [facility] [...] Branch HPV 2015-05-23 Completed [facility] 00:00:00 [facility] HPV 2015-05-23 Completed [facility] 00:00:00 [facility] HPV 2015-05-23 Completed [facility] 00:00:00 [facility] HPV 2015-05-23 Completed [facility] 00:00:00 [facility] HPV 2015-05-23 Completed [facility] 00:00:00 [facility] HPV 2015-05-23 Completed [facility] 00:00:00 [facility] HPV 2015-05-23 Completed [facility] 00:00:00 [facility] HPV 2015-05-23 Completed [facility] 00:00:00 [facility] HPV 2015-05-23 Completed [facility] 00:00:00 [facility] HPV 2015-05-23 Completed [facility] 00:00:00 [facility] HPV 2015-05-23 Completed [facility] 00:00:00 [facility] HPV 2015-05-23 Completed [facility] 00:00:00 [facility] HPV 2015-05-23 Completed [facility] 00:00:00 [facility] HPV 2015-05-23 Completed [facility] 00:00:00 [facility] HPV 2015-05-23 Completed [facility] 00:00:00 [facility] HPV 2015-05-23 Completed [facility] 00:00:00 [facility] HPV 2015-05-23 Completed [facility] 00:00:00 [facility] HPV 2015-05-23 Completed [facility] 00:00:00 [facility] HPV 2015-05-23 Completed [facility] 00:00:00 [facility] HPV 2015-05-23 Completed [facility] 00:00:00 [facility] Influenza Virus 2009-06-17 Completed [facility]it y [facility] Vaccine 00:00:00 [facility] Influenza Virus 2009-06-17 Completed [facility] Vaccine 00:00:00 [facility] Influenza Virus 2009-06-17 Completed [facility] Vaccine 00:00:00 [facility] Influenza Virus 2009-06-17 Completed [facility] Vaccine 00:00:00 [facility] Influenza Virus 2009-06-17 Completed [facility] Vaccine 00:00:00 [facility] Influenza Virus 2009-06-17 Completed [facility] Vaccine 00:00:00 [facility] Influenza Virus 2009-06-17 Completed [facility] Vaccine 00:00:00 [facility] Influenza Virus 2009-06-17 Completed [facility] Vaccine 00:00:00 [facility] Influenza Virus 2009-06-17 Completed [facility] Vaccine 00:00:00 [facility] Influenza Virus 2009-06-17 Completed [facility] Vaccine 00:00:00 [facility] Influenza Virus 2009-06-17 Completed [facility] Vaccine 00:00:00 [facility] Influenza Virus 2009-06-17 Completed [facility] Vaccine 00:00:00 [facility] Influenza Virus 2009-06-17 Completed [facility] Vaccine 00:00:00 [facility] Influenza Virus 2009-06-17 Completed [facility] Vaccine 00:00:00 [facility] Influenza Virus 2009-06-17 Completed [facility] Vaccine 00:00:00 [facility] Influenza Virus 2009-06-17 Completed [facility] Vaccine 00:00:00 [facility] Influenza Virus 2009-06-17 Completed [facility] Vaccine 00:00:00 [facility] Influenza Virus 2009-06-17 Completed [facility] Vaccine 00:00:00 [facility] Influenza Virus 2009-06-17 Completed [facility] Vaccine 00:00:00 [facility] Influenza Virus 2009-06-17 Completed [facility] Vaccine 00:00:00 [facility] Influenza Virus 2009-06-17 Completed [facility] Vaccine 00:00:00 [facility] Influenza Virus 2009-06-17 Completed [facility] Vaccine 00:00:00 [facility] Influenza Virus 2009-06-17 Completed [facility] Vaccine 00:00:00 [facility] Influenza Virus 2009-06-17 Completed [facility] Vaccine 00:00:00 [facility] Influenza Virus 2009-06-17 Completed [facility] Vaccine 00:00:00 [facility] Influenza Virus 2009-06-17 Completed [facility] Vaccine 00:00:00 [facility] Influenza Virus 2009-06-17 Completed [facility] Vaccine 00:00:00 [facility] Influenza Virus 2009-06-17 Completed [facility] Vaccine 00:00:00 [facility] Influenza Virus 2009-06-17 Completed [facility] Vaccine 00:00:00 [facility] Influenza Virus 2009-06-17 Completed [facility] Vaccine 00:00:00 [facility] Influenza Virus 2009-06-17 Completed [facility] Vaccine 00:00:00 [facility] Influenza Virus 2009-06-17 Completed [facility] Vaccine 00:00:00 [facility] Influenza Virus 2009-06-17 Completed [facility] Vaccine 00:00:00 [facility] Influenza Virus 2009-06-17 Completed [facility] Vaccine 00:00:00 [facility] Influenza Virus 2009-06-17 Completed [facility] Vaccine 00:00:00 [facility] Influenza Virus 2009-06-17 Completed [facility] Vaccine 00:00:00 [facility] Influenza Virus 2009-06-17 Completed [facility] Vaccine 00:00:00 [facility] Influenza Virus 2009-06-17 Completed [facility] Vaccine 00:00:00 [facility] Influenza Virus 2009-06-17 Completed [facility] Vaccine 00:00:00 [facility] Influenza Virus 2009-06-17 Completed [facility] Vaccine 00:00:00 [facility] Influenza Virus 2009-06-17 Completed [facility] Vaccine 00:00:00 [facility] Influenza Virus 2009-06-17 Completed [facility] Vaccine 00:00:00 [facility] Influenza Virus 2009-06-17 Completed [facility] Vaccine 00:00:00 [facility] Influenza Virus 2009-06-17 Completed [facility] Vaccine 00:00:00 [facility] Influenza Virus 2009-06-17 Completed [facility] Vaccine 00:00:00 [facility] Influenza Virus 2009-06-17 Completed [facility] Vaccine 00:00:00 [facility] Influenza Virus 2009-06-17 Completed [facility] Vaccine 00:00:00 [facility] Influenza Virus 2009-06-17 Completed [facility] Vaccine 00:00:00 [facility] Influenza Virus 2009-06-17 Completed [facility] Vaccine 00:00:00 [facility] Influenza Virus 2009-06-17 Completed [facility] Vaccine 00:00:00 [facility] Influenza Virus 2009-06-17 Completed [facility] Vaccine 00:00:00 [facility] Influenza Virus 2009-06-17 Completed [facility] Vaccine 00:00:00 [facility] Influenza Virus 2009-06-17 Completed [facility] Vaccine 00:00:00 [facility] Influenza Virus 2009-06-17 Completed [facility] Vaccine 00:00:00 [facility] Influenza Virus 2009-06-17 Completed [facility] Vaccine 00:00:00 [facility] Influenza Virus 2009-06-17 Completed [facility] Vaccine 00:00:00 [facility] Influenza Virus 2009-06-17 Completed [facility] Vaccine 00:00:00 [facility] Influenza Virus 2009-06-17 Completed [facility] Vaccine 00:00:00 [facility] Influenza Virus 2009-06-17 Completed [facility] Vaccine 00:00:00 [facility] Influenza Virus 2009-06-17 Completed [facility] Vaccine 00:00:00 [facility] Influenza Virus 2009-06-17 Completed [facility] Vaccine 00:00:00 [facility] Influenza Virus 2009-06-17 Completed [facility] Vaccine 00:00:00 [facility] Influenza Virus 2009-06-17 Completed [facility] Vaccine 00:00:00 [facility] Influenza Virus 2009-06-17 Completed [facility] Vaccine 00:00:00 [facility] Influenza Virus 2009-06-17 Completed [facility] Vaccine 00:00:00 [facility] Influenza Virus 2009-06-17 Completed [facility] Vaccine 00:00:00 [facility] Influenza Virus 2009-06-17 Completed [facility] Vaccine 00:00:00 [facility] Influenza Virus 2009-06-17 Completed [facility] Vaccine 00:00:00 [facility] Influenza Virus 2009-06-17 Completed [facility] Vaccine 00:00:00 [facility] Influenza Virus 2009-06-17 Completed [facility] Vaccine 00:00:00 [facility] Influenza Virus 2009-06-17 Completed [facility] Vaccine 00:00:00 [facility] Influenza Virus 2009-06-17 Completed [facility] Vaccine 00:00:00 [facility] Influenza Virus 2009-06-17 Completed [facility] Vaccine 00:00:00 [facility] Influenza Virus 2009-06-17 Completed [facility] Vaccine 00:00:00 [facility] Influenza Virus 2009-06-17 Completed [facility] Vaccine 00:00:00 [facility] Influenza Virus 2009-06-17 Completed [facility] Vaccine 00:00:00 [facility] Influenza Virus 2009-06-17 Completed [facility] Vaccine 00:00:00 [facility] Influenza Virus 2009-06-17 Completed [facility] Vaccine 00:00:00 [facility] Influenza Virus 2009-06-17 Completed [facility] Vaccine 00:00:00 [facility] Influenza Virus 2009-06-17 Completed [facility] Vaccine 00:00:00 [facility] Influenza Virus 2009-06-17 Completed [facility] Vaccine 00:00:00 [facility] Influenza Virus 2009-06-17 Completed [facility] Vaccine 00:00:00 [facility] Influenza Virus 2009-06-17 Completed [facility] Vaccine 00:00:00 [facility] Influenza Virus 2009-06-17 Completed [facility] Vaccine 00:00:00 [facility] Influenza Virus 2009-06-17 Completed [facility] Vaccine 00:00:00 [facility] Influenza Virus 2009-06-17 Completed [facility] Vaccine 00:00:00 [facility] Influenza Virus 2009-06-17 Completed [facility] Vaccine 00:00:00 [facility] Influenza Virus 2009-06-17 Completed [facility] Vaccine 00:00:00 [facility] Influenza Virus 2009-06-17 Completed [facility] Vaccine 00:00:00 [facility] Influenza Virus 2009-06-17 Completed [facility] Vaccine 00:00:00 [facility] Influenza Virus 2009-06-17 Completed [facility] Vaccine 00:00:00 [facility] Influenza Virus 2009-06-17 Completed [facility] Vaccine 00:00:00 [facility] Influenza Virus 2009-06-17 Completed [facility] Vaccine 00:00:00 [facility] Influenza Virus 2009-06-17 Completed [facility] Vaccine 00:00:00 [facility] Influenza Virus 2009-06-17 Completed [facility] Vaccine 00:00:00 [facility] Influenza Virus 2009-06-17 Completed [facility] Vaccine 00:00:00 [facility] Influenza Virus 2009-06-17 Completed [facility] Vaccine 00:00:00 [facility] Influenza Virus 2009-06-17 Completed [facility] Vaccine 00:00:00 [facility] Influenza Virus 2009-06-17 Completed [facility] Vaccine 00:00:00 [facility] Influenza Virus 2009-06-17 Completed [facility] Vaccine 00:00:00 [facility] Influenza Virus 2009-06-17 Completed [facility] Vaccine 00:00:00 [facility] Influenza Virus 2009-06-17 Completed [facility] Vaccine 00:00:00 [facility] Influenza Virus 2009-06-17 Completed [facility] Vaccine 00:00:00 [facility] Influenza Virus 2009-06-17 Completed [facility] Vaccine 00:00:00 [facility] Influenza Virus 2009-06-17 Completed [facility] Vaccine 00:00:00 [facility] Influenza Virus 2009-06-17 Completed [facility] Vaccine 00:00:00 [facility] Influenza Virus 2009-06-17 Completed [facility] Vaccine 00:00:00 [facility] Influenza Virus 2009-06-17 Completed [facility] Vaccine 00:00:00 [facility] Influenza Virus 2009-06-17 Completed [facility] Vaccine 00:00:00 [facility] Influenza Virus 2009-06-17 Completed [facility] Vaccine 00:00:00 [facility] Influenza Virus 2009-06-17 Completed [facility] Vaccine 00:00:00 [facility] Influenza Virus 2009-06-17 Completed [facility] Vaccine 00:00:00 [facility] Influenza Virus 2009-06-17 Completed [facility] Vaccine 00:00:00 [facility] Influenza Virus 2009-06-17 Completed [facility] Vaccine 00:00:00 [facility] Influenza Virus 2009-06-17 Completed [facility] Vaccine 00:00:00 [facility] Influenza Virus 2009-06-17 Completed [facility] Vaccine 00:00:00 [facility] Influenza Virus 2009-06-17 Completed [facility] Vaccine 00:00:00 [facility] Influenza Virus 2009-06-17 Completed [facility] Vaccine 00:00:00 [facility] Influenza Virus 2009-06-17 Completed [facility] Vaccine 00:00:00 [facility] Influenza Virus 2009-06-17 Completed [facility] Vaccine 00:00:00 [facility] Influenza Virus 2009-06-17 Completed [facility] Vaccine 00:00:00 [facility] Influenza Virus 2009-06-17 Completed [facility] Vaccine 00:00:00 [facility] Influenza Virus 2009-06-17 Completed [facility] Vaccine 00:00:00 [facility] Influenza Virus 2009-06-17 Completed [facility] Vaccine 00:00:00 [facility] Influenza Virus 2009-06-17 Completed [facility] Vaccine 00:00:00 [facility] Influenza Virus 2009-06-17 Completed [facility] Vaccine 00:00:00 [facility] Influenza Virus 2009-06-17 Completed [facility] Vaccine 00:00:00 [facility] Influenza Virus 2009-06-17 Completed [facility] Vaccine 00:00:00 [facility] Influenza Virus 2009-06-17 Completed [facility] Vaccine 00:00:00 [facility] Influenza Virus 2009-06-17 Completed [facility] Vaccine 00:00:00 [facility] Influenza Virus 2009-06-17 Completed [facility] Vaccine 00:00:00 [facility] Influenza Virus 2009-06-17 Completed [facility] Vaccine 00:00:00 [facility] Influenza Virus 2009-06-17 Completed [facility] Vaccine 00:00:00 [facility] Influenza Virus 2009-06-17 Completed [facility] Vaccine 00:00:00 [facility] Influenza Virus 2009-06-17 Completed [facility] Vaccine 00:00:00 [facility] Influenza Virus 2009-06-17 Completed [facility] Vaccine 00:00:00 [facility] Influenza Virus 2009-06-17 Completed [facility] Vaccine 00:00:00 [facility] Influenza Virus 2009-06-17 Completed [facility] Vaccine 00:00:00 [facility] Influenza Virus 2009-06-17 Completed [facility] Vaccine 00:00:00 [facility] Influenza Virus 2009-06-17 Completed [facility] Vaccine 00:00:00 [facility] Influenza Virus 2009-06-17 Completed [facility] Vaccine 00:00:00 [facility] Influenza Virus 2009-06-17 Completed [facility] Vaccine 00:00:00 [facility] Influenza Virus 2009-06-17 Completed [facility] Vaccine 00:00:00 [facility] Influenza Virus 2009-06-17 Completed [facility] Vaccine 00:00:00 [facility] Influenza Virus 2009-06-17 Completed [facility] Vaccine 00:00:00 [facility] Influenza Virus 2009-06-17 Completed [facility] Vaccine 00:00:00 [facility] Influenza Virus 2009-06-17 Completed [facility] Vaccine 00:00:00 [facility] Influenza Virus 2009-06-17 Completed [facility] Vaccine 00:00:00 [facility] Influenza Virus 2009-06-17 Completed [facility] Vaccine 00:00:00 [facility] Influenza Virus 2009-06-17 Completed [facility] Vaccine 00:00:00 [facility] Influenza Virus 2009-06-17 Completed [facility] Vaccine 00:00:00 [facility] Influenza Virus 2009-06-17 Completed [facility] Vaccine 00:00:00 [facility] Influenza Virus 2009-06-17 Completed [facility] Vaccine 00:00:00 [facility] Influenza Virus 2009-06-17 Completed [facility] Vaccine 00:00:00 [facility] Influenza Virus 2009-06-17 Completed [facility] Vaccine 00:00:00 [facility] Influenza Virus 2009-06-17 Completed [facility] Vaccine 00:00:00 [facility] Influenza Virus 2009-06-17 Completed [facility] Vaccine 00:00:00 [facility] Influenza Virus 2009-06-17 Completed [facility] Vaccine 00:00:00 [facility] Influenza Virus 2009-06-17 Completed [facility] Vaccine 00:00:00 [facility] Influenza Virus 2009-06-17 Completed [facility] Vaccine 00:00:00 [facility] Influenza Virus 2009-06-17 Completed [facility] Vaccine 00:00:00 [facility] Influenza Virus 2009-06-17 Completed [facility] Vaccine 00:00:00 [facility] Influenza Virus 2009-06-17 Completed [facility] Vaccine 00:00:00 [facility] Influenza Virus 2009-06-17 Completed [facility] Vaccine 00:00:00 [facility] Influenza Virus 2009-06-17 Completed [facility] Vaccine 00:00:00 [facility] Influenza Virus 2009-06-17 Completed [facility] Vaccine 00:00:00 [facility] Influenza Virus 2009-06-17 Completed [facility] Vaccine 00:00:00 [facility] Influenza Virus 2009-06-17 Completed [facility] Vaccine 00:00:00 [facility] Influenza Virus 2009-06-17 Completed [facility] Vaccine 00:00:00 [facility] Influenza Virus 2009-06-17 Completed [facility] Vaccine 00:00:00 [facility] Influenza Virus 2009-06-17 Completed [facility] Vaccine 00:00:00 [facility] Influenza Virus 2009-06-17 Completed [facility] Vaccine 00:00:00 [facility] Influenza Virus 2009-06-17 Completed [facility] Vaccine 00:00:00 [facility] Influenza Virus 2009-06-17 Completed [facility] Vaccine 00:00:00 [facility] Influenza Virus 2009-06-17 Completed [facility] Vaccine 00:00:00 [facility] Influenza Virus 2009-06-17 Completed [facility] Vaccine 00:00:00 [facility] Influenza Virus 2009-06-17 Completed [facility] Vaccine 00[facility]00:00 [facility] Influenza Virus 2009-06-17 Completed [facility] Vaccine 00:00:00 [facility] Influenza Virus 2009-06-17 Completed [facility] Vaccine 00:00:00 [facility] Influenza Virus 2009-06-17 Completed [facility] Vaccine 00:00:00 [facility] Influenza Virus 2009-06-17 Completed [facility] Vaccine 00:00:00 [facility] Influenza Virus 2009-06-17 Completed [facility] Vaccine 00:00:00 [facility] Influenza Virus 2009-06-17 Completed [facility] Vaccine 00:00:00 [facility] Influenza Virus 2009-06-17 Completed [facility] Vaccine 00:00:00 [facility] Influenza Virus 2009-06-17 Completed [facility] Vaccine 00:00:00 [facility] Influenza Virus 2009-06-17 Completed [facility] Vaccine 00:00:00 [facility] Influenza Virus 2009-06-17 Completed [facility]:00[facility]00 [facility] Influenza Virus 2009-06-17 Completed [facility] 00:00:00 [facility] Influenza Virus 2009-06-17 Completed [facility] Vaccine 00:00:00 [facility] Influenza Virus 2009-06-17 Completed [facility] Vaccine 00:00:00 [facility] Influenza Virus 2009-06-17 Completed [facility] Vaccine 00[facility]00:00 [facility] Influenza Virus 2009-06-17 Completed [facility] Vaccine 00[facility]00:00 [facility] Influenza Virus 2009-06-17 Completed [facility] Vaccine 00[facility]00:00 [facility] Influenza Virus 2009-06-17 Completed [facility] Vaccine 00[facility]00:00 [facility] Influenza Virus 2009-06-17 Completed [facility] Vaccine 00[facility]00:00 [facility] Influenza Virus 2009-06-17 Completed [facility] Vaccine 00[facility]00:00 [facility] Influenza Virus 2009-06-17 Completed [facility]ine 00[facility]00:00 [facility] Influenza Virus 2009-06-17 Completed [facility]ine 00:00:00 [facility] Influenza Virus 2009-06-17 Completed [facility] 00:00:00 [facility] Influenza Virus 2007-05-05 Completed [facility] Vaccine 00:00:00 [facility] Influenza Virus 2007-05-05 Completed [facility] Vaccine 00:00:00 [facility] Influenza Virus 2007-05-05 Completed [facility] Vaccine 00:00:00 [facility] Influenza Virus 2007-05-05 Completed [facility] Vaccine 00:00:00 [facility] Influenza Virus 2007-05-05 Completed [facility] Vaccine 00:00:00 [facility] Influenza Virus 2007-05-05 Completed [facility] Vaccine 00:00:00 [facility] Influenza Virus 2007-05-05 Completed [facility] Vaccine 00:00:00 [facility] Influenza Virus 2007-05-05 Completed [facility] Vaccine 00:00:00 [facility] Influenza Virus 2007-05-05 Completed [facility] Vaccine 00:00:00 [facility] Influenza Virus 2007-05-05 Completed [facility] Vaccine 00:00:00 [facility] Influenza Virus 2007-05-05 Completed [facility] Vaccine 00:00:00 [facility] Influenza Virus 2007-05-05 Completed [facility] Vaccine 00:00:00 [facility] Influenza Virus 2007-05-05 Completed [facility] Vaccine 00:00:00 [facility] Influenza Virus 2007-05-05 Completed [facility] Vaccine 00:00:00 [facility] Influenza Virus 2007-05-05 Completed [facility] Vaccine 00:00:00 [facility] Influenza Virus 2007-05-05 Completed [facility] Vaccine 00:00:00 [facility] Influenza Virus 2007-05-05 Completed [facility] Vaccine 00:00:00 [facility] Influenza Virus 2007-05-05 Completed [facility] Vaccine 00:00:00 [facility] Influenza Virus 2007-05-05 Completed [facility] Vaccine 00:00:00 [facility] Influenza Virus 2007-05-05 Completed [facility] Vaccine 00:00:00 [facility] Influenza Virus 2007-05-05 Completed [facility] Vaccine 00:00:00 [facility] Influenza Virus 2007-05-05 Completed [facility] Vaccine 00:00:00 [facility] Influenza Virus 2007-05-05 Completed [facility] Vaccine 00:00:00 [facility] Influenza Virus 2007-05-05 Completed [facility] Vaccine 00:00:00 [facility] Influenza Virus 2007-05-05 Completed [facility] Vaccine 00:00:00 [facility] Influenza Virus 2007-05-05 Completed [facility] Vaccine 00:00:00 [facility] Influenza Virus 2007-05-05 Completed [facility] Vaccine 00:00:00 [facility] Influenza Virus 2007-05-05 Completed [facility] Vaccine 00:00:00 [facility] Influenza Virus 2007-05-05 Completed [facility] Vaccine 00:00:00 [facility] Influenza Virus 2007-05-05 Completed [facility] Vaccine 00:00:00 [facility] Influenza Virus 2007-05-05 Completed [facility] Vaccine 00:00:00 [facility] Influenza Virus 2007-05-05 Completed [facility] Vaccine 00:00:00 [facility] Influenza Virus 2007-05-05 Completed [facility] Vaccine 00:00:00 [facility] Influenza Virus 2007-05-05 Completed [facility] Vaccine 00:00:00 [facility] Influenza Virus 2007-05-05 Completed [facility] Vaccine 00:00:00 [facility] Influenza Virus 2007-05-05 Completed [facility] Vaccine 00:00:00 [facility] Influenza Virus 2007-05-05 Completed [facility] Vaccine 00:00:00 [facility] Influenza Virus 2007-05-05 Completed [facility] Vaccine 00:00:00 [facility] Influenza Virus 2007-05-05 Completed [facility] Vaccine 00:00:00 [facility] Influenza Virus 2007-05-05 Completed [facility] Vaccine 00:00:00 [facility] Influenza Virus 2007-05-05 Completed [facility] Vaccine 00:00:00 [facility] Influenza Virus 2007-05-05 Completed [facility] Vaccine 00:00:00 [facility] Influenza Virus 2007-05-05 Completed [facility] Vaccine 00:00:00 [facility] Influenza Virus 2007-05-05 Completed [facility] Vaccine 00:00:00 [facility] Influenza Virus 2007-05-05 Completed [facility] Vaccine 00:00:00 [facility] Influenza Virus 2007-05-05 Completed [facility] Vaccine 00:00:00 [facility] Influenza Virus 2007-05-05 Completed [facility] Vaccine 00:00:00 [facility] Influenza Virus 2007-05-05 Completed [facility] Vaccine 00:00:00 [facility] Influenza Virus 2007-05-05 Completed [facility] Vaccine 00:00:00 [facility] Influenza Virus 2007-05-05 Completed [facility] Vaccine 00:00:00 [facility] Influenza Virus 2007-05-05 Completed [facility] Vaccine 00:00:00 [facility] Influenza Virus 2007-05-05 Completed [facility] Vaccine 00:00:00 [facility] Influenza Virus 2007-05-05 Completed [facility] Vaccine 00:00:00 [facility] Influenza Virus 2007-05-05 Completed [facility] Vaccine 00:00:00 [facility] Influenza Virus 2007-05-05 Completed [facility] Vaccine 00:00:00 [facility] Influenza Virus 2007-05-05 Completed [facility] Vaccine 00:00:00 [facility] Influenza Virus 2007-05-05 Completed [facility] Vaccine 00:00:00 [facility] Influenza Virus 2007-05-05 Completed [facility] Vaccine 00:00:00 [facility] Influenza Virus 2007-05-05 Completed [facility] Vaccine 00:00:00 [facility] Influenza Virus 2007-05-05 Completed [facility] Vaccine 00:00:00 [facility] Influenza Virus 2007-05-05 Completed [facility] Vaccine 00:00:00 [facility] Influenza Virus 2007-05-05 Completed [facility] Vaccine 00:00:00 [facility] Influenza Virus 2007-05-05 Completed [facility] Vaccine 00:00:00 [facility] Influenza Virus 2007-05-05 Completed [facility] Vaccine 00:00:00 [facility] Influenza Virus 2007-05-05 Completed [facility] Vaccine 00:00:00 [facility] Influenza Virus 2007-05-05 Completed [facility] Vaccine 00:00:00 [facility] Influenza Virus 2007-05-05 Completed [facility] Vaccine 00:00:00 [facility] Influenza Virus 2007-05-05 Completed [facility] Vaccine 00:00:00 [facility] Influenza Virus 2007-05-05 Completed [facility] Vaccine 00:00:00 [facility] Influenza Virus 2007-05-05 Completed [facility] Vaccine 00:00:00 [facility] Influenza Virus 2007-05-05 Completed [facility] Vaccine 00:00:00 [facility] Influenza Virus 2007-05-05 Completed [facility] Vaccine 00:00:00 [facility] Influenza Virus 2007-05-05 Completed [facility] Vaccine 00:00:00 [facility] Influenza Virus 2007-05-05 Completed [facility] Vaccine 00:00:00 [facility] Influenza Virus 2007-05-05 Completed [facility] Vaccine 00:00:00 [facility] Influenza Virus 2007-05-05 Completed [facility] Vaccine 00:00:00 [facility] Influenza Virus 2007-05-05 Completed [facility] Vaccine 00:00:00 [facility] Influenza Virus 2007-05-05 Completed [facility] Vaccine 00:00:00 [facility] Influenza Virus 2007-05-05 Completed [facility] Vaccine 00:00:00 [facility] Influenza Virus 2007-05-05 Completed [facility] Vaccine 00:00:00 [facility] Influenza Virus 2007-05-05 Completed [facility] Vaccine 00:00:00 [facility] Influenza Virus 2007-05-05 Completed [facility] Vaccine 00:00:00 [facility] Influenza Virus 2007-05-05 Completed [facility] Vaccine 00:00:00 [facility] Influenza Virus 2007-05-05 Completed [facility] Vaccine 00:00:00 [facility] Influenza Virus 2007-05-05 Completed [facility] Vaccine 00:00:00 [facility] Influenza Virus 2007-05-05 Completed [facility] Vaccine 00:00:00 [facility] Influenza Virus 2007-05-05 Completed [facility] Vaccine 00:00:00 [facility] Influenza Virus 2007-05-05 Completed [facility] Vaccine 00:00:00 [facility] Influenza Virus 2007-05-05 Completed [facility] Vaccine 00:00:00 [facility] Influenza Virus 2007-05-05 Completed [facility] Vaccine 00:00:00 [facility] Influenza Virus 2007-05-05 Completed [facility] Vaccine 00:00:00 [facility] Influenza Virus 2007-05-05 Completed [facility] Vaccine 00:00:00 [facility] Influenza Virus 2007-05-05 Completed [facility] Vaccine 00:00:00 [facility] Influenza Virus 2007-05-05 Completed [facility] Vaccine 00:00:00 [facility] Influenza Virus 2007-05-05 Completed [facility] Vaccine 00:00:00 [facility] Influenza Virus 2007-05-05 Completed [facility] Vaccine 00:00:00 [facility] Influenza Virus 2007-05-05 Completed [facility] Vaccine 00:00:00 [facility] Influenza Virus 2007-05-05 Completed [facility] Vaccine 00:00:00 [facility] Influenza Virus 2007-05-05 Completed [facility] Vaccine 00:00:00 [facility] Influenza Virus 2007-05-05 Completed [facility] Vaccine 00:00:00 [facility] Influenza Virus 2007-05-05 Completed [facility] Vaccine 00:00:00 [facility] Influenza Virus 2007-05-05 Completed [facility] Vaccine 00:00:00 [facility] Influenza Virus 2007-05-05 Completed [facility] Vaccine 00:00:00 [facility] Influenza Virus 2007-05-05 Completed [facility] Vaccine 00:00:00 [facility] Influenza Virus 2007-05-05 Completed [facility] Vaccine 00:00:00 [facility] Influenza Virus 2007-05-05 Completed [facility] Vaccine 00:00:00 [facility] Influenza Virus 2007-05-05 Completed [facility] Vaccine 00:00:00 [facility] Influenza Virus 2007-05-05 Completed [facility] Vaccine 00:00:00 [facility] Influenza Virus 2007-05-05 Completed [facility] Vaccine 00:00:00 [facility] Influenza Virus 2007-05-05 Completed [facility] Vaccine 00:00:00 [facility] Influenza Virus 2007-05-05 Completed [facility] Vaccine 00:00:00 [facility] Influenza Virus 2007-05-05 Completed [facility] Vaccine 00:00:00 [facility] Influenza Virus 2007-05-05 Completed [facility] Vaccine 00:00:00 [facility] Influenza Virus 2007-05-05 Completed [facility] Vaccine 00:00:00 [facility] Influenza Virus 2007-05-05 Completed [facility] Vaccine 00:00:00 [facility] Influenza Virus 2007-05-05 Completed [facility] Vaccine 00:00:00 [facility] Influenza Virus 2007-05-05 Completed [facility] Vaccine 00:00:00 [facility] Influenza Virus 2007-05-05 Completed [facility] Vaccine 00:00:00 [facility] Influenza Virus 2007-05-05 Completed [facility] Vaccine 00:00:00 [facility] Influenza Virus 2007-05-05 Completed [facility] Vaccine 00:00:00 [facility] Influenza Virus 2007-05-05 Completed [facility] Vaccine 00:00:00 [facility] Influenza Virus 2007-05-05 Completed [facility] Vaccine 00:00:00 [facility] Influenza Virus 2007-05-05 Completed [facility] Vaccine 00:00:00 [facility] Influenza Virus 2007-05-05 Completed [facility] Vaccine 00:00:00 [facility] Influenza Virus 2007-05-05 Completed [facility] Vaccine 00:00:00 [facility] Influenza Virus 2007-05-05 Completed [facility] Vaccine 00:00:00 [facility] Influenza Virus 2007-05-05 Completed [facility] Vaccine 00:00:00 [facility] Influenza Virus 2007-05-05 Completed [facility] Vaccine 00:00:00 [facility] Influenza Virus 2007-05-05 Completed [facility] Vaccine 00:00:00 [facility] Influenza Virus 2007-05-05 Completed [facility] Vaccine 00:00:00 [facility] Influenza Virus 2007-05-05 Completed [facility] Vaccine 00:00:00 [facility] Influenza Virus 2007-05-05 Completed [facility] Vaccine 00:00:00 [facility] Influenza Virus 2007-05-05 Completed [facility] Vaccine 00:00:00 [facility] Influenza Virus 2007-05-05 Completed [facility] Vaccine 00:00:00 [facility] Influenza Virus 2007-05-05 Completed [facility] Vaccine 00:00:00 [facility] Influenza Virus 2007-05-05 Completed [facility] Vaccine 00:00:00 [facility] Influenza Virus 2007-05-05 Completed [facility] Vaccine 00:00:00 [facility] Influenza Virus 2007-05-05 Completed [facility] Vaccine 00:00:00 [facility] Influenza Virus 2007-05-05 Completed [facility] Vaccine 00:00:00 [facility] Influenza Virus 2007-05-05 Completed [facility] Vaccine 00:00:00 [facility] Influenza Virus 2007-05-05 Completed [facility] Vaccine 00:00:00 [facility] Influenza Virus 2007-05-05 Completed [facility] Vaccine 00:00:00 [facility] Influenza Virus 2007-05-05 Completed [facility] Vaccine 00:00:00 [facility] Influenza Virus 2007-05-05 Completed [facility] Vaccine 00:00:00 [facility] Influenza Virus 2007-05-05 Completed [facility] Vaccine 00:00:00 [facility] Influenza Virus 2007-05-05 Completed [facility] Vaccine 00:00:00 [facility] Influenza Virus 2007-05-05 Completed [facility] Vaccine 00:00:00 [facility] Influenza Virus 2007-05-05 Completed [facility] Vaccine 00:00:00 [facility] Influenza Virus 2007-05-05 Completed [facility] Vaccine 00:00:00 [facility] Influenza Virus 2007-05-05 Completed [facility] Vaccine 00:00:00 [facility] Influenza Virus 2007-05-05 Completed [facility] Vaccine 00:00:00 [facility] Influenza Virus 2007-05-05 Completed [facility] Vaccine 00:00:00 [facility] Influenza Virus 2007-05-05 Completed [facility] Vaccine 00:00:00 [facility] Influenza Virus 2007-05-05 Completed [facility] Vaccine 00:00:00 [facility] Influenza Virus 2007-05-05 Completed [facility] Vaccine 00:00:00 [facility] Influenza Virus 2007-05-05 Completed [facility] Vaccine 00:00:00 [facility] Influenza Virus 2007-05-05 Completed [facility] Vaccine 00:00:00 [facility] Influenza Virus 2007-05-05 Completed [facility] Vaccine 00:00:00 [facility] Influenza Virus 2007-05-05 Completed [facility] Vaccine 00:00:00 [facility] Influenza Virus 2007-05-05 Completed [facility] Vaccine 00:00:00 [facility] Influenza Virus 2007-05-05 Completed [facility] Vaccine 00:00:00 [facility] Influenza Virus 2007-05-05 Completed [facility] Vaccine 00:00:00 [facility] Influenza Virus 2007-05-05 Completed [facility] Vaccine 00:00:00 [facility] Influenza Virus 2007-05-05 Completed [facility] Vaccine 00:00:00 [facility] Influenza Virus 2007-05-05 Completed [facility] Vaccine 00:00:00 [facility] Influenza Virus 2007-05-05 Completed [facility] Vaccine 00:00:00 [facility] Influenza Virus 2007-05-05 Completed [facility] Vaccine 00:00:00 [facility] Influenza Virus 2007-05-05 Completed [facility] Vaccine 00:00:00 [facility] Influenza Virus 2007-05-05 Completed [facility] Vaccine 00:00:00 [facility] Influenza Virus 2007-05-05 Completed [facility] Vaccine 00:00:00 [facility] Influenza Virus 2007-05-05 Completed [facility] Vaccine 00:00:00 [facility] Influenza Virus 2007-05-05 Completed [facility] Vaccine 00:00:00 [facility] Influenza Virus 2007-05-05 Completed [facility] Vaccine 00:00:00 [facility] Influenza Virus 2007-05-05 Completed [facility] Vaccine 00:00:00 [facility] Influenza Virus 2007-05-05 Completed [facility] Vaccine 00:00:00 [facility] Influenza Virus 2007-05-05 Completed [facility] Vaccine 00:00:00 [facility] Influenza Virus 2007-05-05 Completed [facility] Vaccine 00:00:00 [facility] Influenza Virus 2007-05-05 Completed [facility] Vaccine 00:00:00 [facility] Influenza Virus 2007-05-05 Completed [facility] Vaccine 00:00:00 [facility] Influenza Virus 2007-05-05 Completed [facility] Vaccine 00:00:00 [facility] Influenza Virus 2007-05-05 Completed [facility] Vaccine 00:00:00 [facility] Influenza Virus 2007-05-05 Completed [facility] Vaccine 00:00:00 [facility] Influenza Virus 2007-05-05 Completed [facility] Vaccine 00:00:00 [facility] Influenza Virus 2007-05-05 Completed [facility] Vaccine 00:00:00 [facility] Influenza Virus 2007-05-05 Completed [facility] Vaccine 00:00:00 [facility] Influenza Virus 2007-05-05 Completed [facility] Vaccine 00:00:00 [facility] Influenza Virus 2007-05-05 Completed [facility] Vaccine 00:00:00 [facility] Influenza Virus 2007-05-05 Completed [facility] Vaccine 00:00:00 [facility] Influenza Virus 2007-05-05 Completed [facility] Vaccine 00:00:00 [facility] Influenza Virus 2007-05-05 Completed [facility] Vaccine 00:00:00 [facility] Influenza Virus 2007-05-05 Completed [facility] Vaccine 00:00:00 [facility] Influenza Virus 2007-05-05 Completed [facility] Vaccine 00:00:00 [facility] Influenza Virus 2007-05-05 Completed [facility] Vaccine 00:00:00 [facility] Influenza Virus 2007-05-05 Completed [facility] Vaccine 00:00:00 [facility] Influenza Virus 2007-05-05 Completed [facility] Vaccine 00:00:00 [facility] Influenza Virus 2007-05-05 Completed [facility] Vaccine 00:00:00 [facility] Influenza Virus 2007-05-05 Completed [facility] Vaccine 00:00:00 [facility] Influenza Virus 2007-05-05 Completed [facility] Vaccine 00:00:00 [facility] Influenza Virus 2007-05-05 Completed [facility] 00:00:00 [facility] [facility] Influenza Virus 2005-06-18 Completed [facility]it [facility] of Vaccine - Whole 00:00:00 [facility] Influenza Virus 2005-06-18 Completed [facility] of Vaccine - Whole 00:00:00 [facility] Influenza Virus 2005-06-18 Completed [facility]it y of Vaccine - Whole 00:00:00 [facility] Influenza Virus 2005-06-18 Completed [facility] of Vaccine - Whole 00:00:00 [facility] Influenza Virus 2005-06-18 Completed [facility]it [facility] of Vaccine - Whole 00:00:00 [facility] Influenza Virus 2005-06-18 Completed [facility]it [facility] of Vaccine - Whole 00:00:00 [facility] Influenza Virus 2005-06-18 Completed [facility] of Vaccine - Whole 00:00:00 [facility] Influenza Virus 2005-06-18 Completed [facility] of Vaccine - Whole 00:00:00 [facility] Influenza Virus 2005-06-18 Completed [facility] of Vaccine - Whole 00:00:00 [facility] Influenza Virus 2005-06-18 Completed [facility] of Vaccine - Whole 00:00:00 [facility] Influenza Virus 2005-06-18 Completed [facility]it [facility] of Vaccine - Whole 00:00:00 [facility] Influenza Virus 2005-06-18 Completed [facility]it [facility] of Vaccine - Whole 00:00:00 [facility] Influenza Virus 2005-06-18 Completed [facility] of Vaccine - Whole 00:00:00 [facility] Influenza Virus 2005-06-18 Completed [facility] of Vaccine - Whole 00:00:00 [facility] Influenza Virus 2005-06-18 Completed [facility] of Vaccine - Whole 00:00:00 [facility] Influenza Virus 2005-06-18 Completed [facility] of Vaccine - Whole 00:00:00 [facility] Influenza Virus 2005-06-18 Completed [facility] of Vaccine - Whole 00:00:00 [facility] Influenza Virus 2005-06-18 Completed [facility] of Vaccine - Whole 00:00:00 [facility] Influenza Virus 2005-06-18 Completed [facility] of Vaccine - Whole 00:00:00 [facility] Influenza Virus 2005-06-18 Completed [facility] of Vaccine - Whole 00:00:00 [facility] Influenza Virus 2005-06-18 Completed [facility] of Vaccine - Whole 00:00:00 [facility] Influenza Virus 2005-06-18 Completed [facility] of Vaccine - Whole 00:00:00 [facility] Influenza Virus 2005-06-18 Completed [facility] of Vaccine - Whole 00:00:00 [facility] Influenza Virus 2005-06-18 Completed [facility] of Vaccine - Whole 00:00:00 [facility] Influenza Virus 2005-06-18 Completed [facility] of Vaccine - Whole 00:00:00 [facility] Influenza Virus 2005-06-18 Completed [facility] of Vaccine - Whole 00:00:00 [facility] Influenza Virus 2005-06-18 Completed [facility] of Vaccine - Whole 00:00:00 [facility] Influenza Virus 2005-06-18 Completed [facility] of Vaccine - Whole 00:00:00 [facility] Influenza Virus 2005-06-18 Completed [facility] of Vaccine - Whole 00:00:00 [facility] Influenza Virus 2005-06-18 Completed [facility] of Vaccine - Whole 00:00:00 [facility] Influenza Virus 2005-06-18 Completed [facility] of Vaccine - Whole 00:00:00 [facility] Influenza Virus 2005-06-18 Completed [facility] of Vaccine - Whole 00:00:00 [facility] Influenza Virus 2005-06-18 Completed [facility] of Vaccine - Whole 00:00:00 [facility] Influenza Virus 2005-06-18 Completed [facility] of Vaccine - Whole 00:00:00 [facility] Influenza Virus 2005-06-18 Completed [facility] of Vaccine - Whole 00:00:00 [facility] Influenza Virus 2005-06-18 Completed [facility] of Vaccine - Whole 00:00:00 [facility] Influenza Virus 2005-06-18 Completed [facility] of Vaccine - Whole 00:00:00 [facility] Influenza Virus 2005-06-18 Completed [facility] of Vaccine - Whole 00:00:00 [facility] Influenza Virus 2005-06-18 Completed [facility] of Vaccine - Whole 00:00:00 [facility] Influenza Virus 2005-06-18 Completed [facility] of Vaccine - Whole 00:00:00 [facility] Influenza Virus 2005-06-18 Completed [facility] of Vaccine - Whole 00:00:00 [facility] Influenza Virus 2005-06-18 Completed [facility] of Vaccine - Whole 00:00:00 [facility] Influenza Virus 2005-06-18 Completed [facility] of Vaccine - Whole 00:00:00 [facility] Influenza Virus 2005-06-18 Completed [facility] of Vaccine - Whole 00:00:00 [facility] Influenza Virus 2005-06-18 Completed [facility] of Vaccine - Whole 00:00:00 [facility] Influenza Virus 2005-06-18 Completed [facility] of Vaccine - Whole 00:00:00 [facility] Influenza Virus 2005-06-18 Completed [facility] of Vaccine - Whole 00:00:00 [facility] Influenza Virus 2005-06-18 Completed [facility] of Vaccine - Whole 00:00:00 [facility] Influenza Virus 2005-06-18 Completed [facility] of Vaccine - Whole 00:00:00 [facility] Influenza Virus 2005-06-18 Completed [facility] of Vaccine - Whole 00:00:00 [facility] Influenza Virus 2005-06-18 Completed [facility] of Vaccine - Whole 00:00:00 [facility] Influenza Virus 2005-06-18 Completed [facility] of Vaccine - Whole 00:00:00 [facility] Influenza Virus 2005-06-18 Completed [facility] of Vaccine - Whole 00:00:00 [facility] Influenza Virus 2005-06-18 Completed [facility] of Vaccine - Whole 00:00:00 [facility] Influenza Virus 2005-05-07 Completed [facility] of Vaccine - Whole 00:00:00 [facility] Influenza Virus 2005-05-07 Completed [facility] of Vaccine - Whole 00:00:00 [facility] Influenza Virus 2005-05-07 Completed [facility] of Vaccine - Whole 00:00:00 [facility] Influenza Virus 2005-05-07 Completed [facility] of Vaccine - Whole 00:00:00 [facility] Influenza Virus 2005-05-07 Completed [facility] of Vaccine - Whole 00:00:00 [facility] Influenza Virus 2005-05-07 Completed [facility] of Vaccine - Whole 00:00:00 [facility] Influenza Virus 2005-05-07 Completed [facility] of Vaccine - Whole 00:00:00 [facility] Influenza Virus 2005-05-07 Completed [facility] of Vaccine - Whole 00:00:00 [facility] Influenza Virus 2005-05-07 Completed [facility] of Vaccine - Whole 00:00:00 [facility] Influenza Virus 2005-05-07 Completed [facility] of Vaccine - Whole 00:00:00 [facility] Influenza Virus 2005-05-07 Completed [facility] of Vaccine - Whole 00:00:00 [facility] Influenza Virus 2005-05-07 Completed [facility] of Vaccine - Whole 00:00:00 [facility] Influenza Virus 2005-05-07 Completed [facility] of Vaccine - Whole 00:00:00 [facility] Influenza Virus 2005-05-07 Completed [facility] of Vaccine - Whole 00:00:00 [facility] Influenza Virus 2005-05-07 Completed [facility] of Vaccine - Whole 00:00:00 [facility] Influenza Virus 2005-05-07 Completed [facility] of Vaccine - Whole 00:00:00 [facility] Influenza Virus 2005-05-07 Completed [facility] of Vaccine - Whole 00:00:00 [facility] Influenza Virus 2005-05-07 Completed [facility] of Vaccine - Whole 00:00:00 [facility] Influenza Virus 2005-05-07 Completed [facility] of Vaccine - Whole 00:00:00 [facility] Influenza Virus 2005-05-07 Completed [facility] of Vaccine - Whole 00:00:00 [facility] Influenza Virus 2005-05-07 Completed [facility] of Vaccine - Whole 00:00:00 [facility] Influenza Virus 2005-05-07 Completed [facility] of Vaccine - Whole 00:00:00 [facility] Influenza Virus 2005-05-07 Completed [facility] of Vaccine - Whole 00:00:00 [facility] Influenza Virus 2005-05-07 Completed [facility] of Vaccine - Whole 00:00:00 [facility] Influenza Virus 2005-05-07 Completed [facility] of Vaccine - Whole 00:00:00 [facility] Influenza Virus 2005-05-07 Completed [facility] of Vaccine - Whole 00:00:00 [facility] Influenza Virus 2005-05-07 Completed [facility] of Vaccine - Whole 00:00:00 [facility] Influenza Virus 2005-05-07 Completed [facility] of Vaccine - Whole 00:00:00 [facility] Influenza Virus 2005-05-07 Completed [facility] of Vaccine - Whole 00:00:00 [facility] Influenza Virus 2005-05-07 Completed [facility] of Vaccine - Whole 00:00:00 [facility] Influenza Virus 2005-05-07 Completed [facility] of Vaccine - Whole 00:00:00 [facility] Influenza Virus 2005-05-07 Completed [facility] of Vaccine - Whole 00:00:00 [facility] Influenza Virus 2005-05-07 Completed [facility] of Vaccine - Whole 00:00:00 [facility] Influenza Virus 2005-05-07 Completed [facility] of Vaccine - Whole 00:00:00 [facility] Influenza Virus 2005-05-07 Completed [facility] of Vaccine - Whole 00:00:00 [facility] Influenza Virus 2005-05-07 Completed [facility] of Vaccine - Whole 00:00:00 [facility] Influenza Virus 2005-05-07 Completed [facility] of Vaccine - Whole 00:00:00 [facility] Influenza Virus 2005-05-07 Completed [facility] of Vaccine - Whole 00:00:00 [facility] Influenza Virus 2005-05-07 Completed [facility] of Vaccine - Whole 00:00:00 [facility] Influenza Virus 2005-05-07 Completed [facility] of Vaccine - Whole 00:00:00 [facility] Influenza Virus 2005-05-07 Completed [facility] of Vaccine - Whole 00:00:00 [facility] Influenza Virus 2005-05-07 Completed [facility] of Vaccine - Whole 00:00:00 [facility] Influenza Virus 2005-05-07 Completed [facility] of Vaccine - Whole 00:00:00 [facility] Influenza Virus 2005-05-07 Completed [facility] of Vaccine - Whole 00:00:00 [facility] Influenza Virus 2005-05-07 Completed [facility] of Vaccine - Whole 00:00:00 [facility] Influenza Virus 2005-05-07 Completed [facility] of Vaccine - Whole 00:00:00 [facility] Influenza Virus 2005-05-07 Completed [facility] of Vaccine - Whole 00:00:00 [facility] Influenza Virus 2005-05-07 Completed [facility] of Vaccine - Whole 00:00:00 [facility] Influenza Virus 2005-05-07 Completed [facility] of Vaccine - Whole 00:00:00 [facility] Influenza Virus 2005-05-07 Completed [facility] of Vaccine - Whole 00:00:00 [facility] Influenza Virus 2005-05-07 Completed [facility] of Vaccine - Whole 00:00:00 [facility] Influenza Virus 2005-05-07 Completed [facility] of Vaccine - Whole 00:00:00 [facility] Influenza Virus 2005-05-07 Completed [facility] of Vaccine - Whole 00:00:00 [facility] Influenza Virus 2005-05-07 Completed [facility] Vaccine - Whole 00:00:00 [facility] HIB 4 Dose Schedule 2004-01-31 Completed Unive rsity of 00:00:00 [facility] Hep B, Adol or Pedi 2004-01-31 Completed Unive rsity of Dosage 00:00:00 [facility] Pediarix (dtap/hep 2004-01-31 Completed Univer sity of B/ipv) 00:00:00 [facility] HIB 4 Dose Schedule 2004-01-31 Completed Unive [...] 2004-01-31 Completed Univer sity of B/ipv) 00:00:00 [facility] HIB 4 Dose Schedule 2004-01-31 Completed Unive rsity of 00:00:00 [facility] Hep B, Adol or Pedi 2004-01-31 Completed Unive rsity of Dosage 00:00:00 [facility] Pediarix (dtap/hep 2004-01-31 Completed Univer sity of B/ipv) 00:00:00 [facility] HIB 4 Dose Schedule 2004-01-31 Completed Unive [...] [facility] HIB 4 Dose Schedule 2004-01-31 Completed Unive [...] 2004-01-31 Completed Univer sity of B/ipv) 00:00:00 [facility] HIB 4 Dose Schedule 2004-01-31 [...] 2004-01-31 Completed Univer sity of B/ipv) 00:00:00 [facility] HIB 4 Dose Schedule 2004-01-31 Completed Unive rsity of 00:00:00 [facility] Hep B, Adol or Pedi 2004-01-31 Completed Unive rsity of Dosage 00:00:00 [facility] Pediarix (dtap/hep 2004-01-31 Completed Univer sity of B/ipv) 00:00:00 [facility] HIB 4 Dose Schedule 2004-01-31 Completed Unive rsity of 00:00:00 [facility] Hep B, Adol or Pedi 2004-01-31 Completed Unive rsity of Dosage 00:00:00 [facility] HIB 4 Dose Schedule 2004-01-31 Completed Unive rsity of 00:00:00 [facility] Hep B, Adol or Pedi 2004-01-31 Completed Unive rsity of Dosage 00:00:00 [facility] Pediarix (dtap/hep 2004-01-31 Completed Univer sity of B/ipv) 00:00:00 [facility] Pediarix (dtap/hep 2004-01-31 Completed Univer sity of B/ipv) 00:00:00 [facility] HIB 4 Dose Schedule 2004-01-31 Completed Unive rsity of 00:00:00 [facility] Hep B, Adol or Pedi 2004-01-31 Completed Unive rsity of Dosage 00:00:00 [facility] Pediarix (dtap/hep 2004-01-31 Completed Univer sity of B/ipv) 00:00:00 [facility] Vital Signs Vital Name Observation Time Observation Value Comments Source Systolic blood 2023-03-20 05:34:00 123 mm[Hg] Univer sity of pressure [facility] Diastolic blood 2023-03-20 05:34:00 75 mm[Hg] Unive rsity of pressure [facility] Heart rate 2023-03-20 05:34:00 88 /min [facility] Respiratory rate 2023-03-20 05:34:00 17 /min [facility] Oxygen saturation in 2023-03-20 05:34:00 97 /min [facility] Arterial blood by [facility] Branch Body temperature 2023-03-20 03:18:00 37.06 [place] [facility] Body weight 2023-03-20 03:18:00 83.915 kg [facility] BMI 2023-03-20 03:18:00 28.13 kg/m2 [facility] Body weight 2023-03-18 18:27:00 83.915 kg [facility] BMI 2023-03-18 18:27:00 28.13 kg/m2 [facility] Systolic blood 2023-03-18 18:00:00 133 mm[Hg] Univer sity of pressure [facility] Diastolic blood 2023-03-18 18:00:00 86 mm[Hg] [facility]ive rsity of pressure [facility] Heart rate 2023-03-18 18:00:00 95 /min [facility] Body temperature 2023-03-18 18:00:00 37 [place] [facility] Respiratory rate 2023-03-18 18:00:00 16 /min [facility] Body height 2023-03-18 18:00:00 172.7 cm [facility] Oxygen saturation in 2023-03-18 18:00:00 99 /min [facility] Arterial blood by [facility] Systolic blood 2023-03-10 01:30:00 123 mm[Hg] Univer sity of pressure [facility] Diastolic blood 2023-03-10 01:30:00 84 mm[Hg] Unive rsity of pressure [facility] Heart rate 2023-03-10 01:30:00 76 /min [facility] Respiratory rate 2023-03-10 01:30:00 18 /min [facility] Oxygen saturation in 2023-03-10 01:30:00 99 /min [facility] Arterial blood by [facility] Body temperature 2023-03-09 21:54:00 37 [place] [facility] Body weight 2023-03-09 21:54:00 83.915 kg [facility] BMI 2023-03-09 21:54:00 28.13 kg/m2 [facility] Systolic blood 2023-03-04 00:00:00 121 mm[Hg] [facility]iver [facility]ity of pressure [facility] Diastolic blood 2023-03-04 00:00:00 81 mm[Hg] [facility]ive rsity of pressure [facility] Heart rate 2023-03-04 00:00:00 86 /min [facility] Respiratory rate 2023-03-04 00:00:00 20 /min [facility] Oxygen saturation in 2023-03-04 00:00:00 95 /min [facility] Arterial blood by [facility] Body temperature 2023-03-03 18:40:00 36.72 [place] [facility] Body height 2023-03-03 18:40:00 172.7 cm [facility] Body weight 2023-03-03 18:40:00 83.915 kg [facility] BMI 2023-03-03 18:40:00 28.13 kg/m2 [facility] Body height 2023-03-02 18:20:00 172.7 cm [facility] Body weight 2023-03-02 18:20:00 82.555 kg [facility] BMI 2023-03-02 18:20:00 27.67 kg/m2 [facility] Systolic blood 2023-02-23 14:45:00 125 mm[Hg] [facility] pressure [facility] Diastolic blood 2023-02-23 14:45:00 84 mm[Hg] Unive rsity of pressure [facility] Respiratory rate 2023-02-23 14:45:00 19 /min [facility] Oxygen saturation in 2023-02-23 14:45:00 94 /min [facility] Arterial blood by [facility] Systolic blood 2023-02-23 14:45:00 125 mm[Hg] [facility]iver [facility] of pressure [facility] Diastolic blood 2023-02-23 14:45:00 84 mm[Hg] Unive rsity of pressure [facility] Respiratory rate 2023-02-23 14:45:00 19 /min [facility] Oxygen saturation in 2023-02-23 14:45:00 94 /min [facility] Arterial blood by [facility] Systolic blood 2023-02-22 15:10:00 122 mm[Hg] [facility] pressure [facility] Diastolic blood 2023-02-22 15:10:00 79 mm[Hg] [facility] pressure [facility] Heart rate 2023-02-22 15:10:00 73 /min [facility] Respiratory rate 2023-02-22 15:10:00 19 /min Univ ersity of [facility] Body height 2023-02-22 15:10:00 172.7 cm [facility] Body weight 2023-02-22 15:10:00 82.872 kg [facility] BMI 2023-02-22 15:10:00 27.78 kg/m2 [facility] Oxygen saturation in 2023-02-22 15:10:00 97 /min [facility] Arterial blood by [facility] P[facility] Branch Systolic blood 2023-02-09 19:28:00 120 mm[Hg] Univer sity of pressure [facility] Diastolic blood 2023-02-09 19:28:00 81 mm[Hg] Unive rsity of pressure [facility] Heart rate 2023-02-09 19:28:00 80 /min [facility] Body height 2023-02-09 19:28:00 172.7 cm [facility] Body weight 2023-02-09 19:28:00 84.55 kg [facility] BMI 2023-02-09 19:28:00 28.34 kg/m2 [facility] Systolic blood 2023-02-01 18:22:00 134 mm[Hg] [facility] Diastolic blood 2023-02-01 18:22:00 84 mm[Hg] [facility] Heart rate 2023-02-01 18:22:00 85 /min [facility] Body height 2023-02-01 18:22:00 172.7 cm [facility] Body weight 2023-02-01 18:22:00 83.961 kg [facility] BMI 2023-02-01 18:22:00 28.14 kg/m2 [facility] Systolic blood 2023-02-01 06:44:00 131 mm[Hg] [facility] Diastolic blood 2023-02-01 06:44:00 78 mm[Hg] [facility] pressure [facility] Heart rate 2023-02-01 06:44:00 96 /min [facility] Respiratory rate 2023-02-01 06:44:00 22 /min [facility] Oxygen saturation in 2023-02-01 06:44:00 98 /min [facility] Arterial blood by [facility] Body temperature 2023-02-01 03:25:00 36.78 [place] [facility] Body height 2023-02-01 03:25:00 172.7 cm [facility] Body weight 2023-02-01 03:25:00 83.915 kg [facility] BMI 2023-02-01 03:25:00 28.13 kg/m2 [facility] Systolic blood 2023-01-28 20:10:00 130 mm[Hg] [facility] Diastolic blood 2023-01-28 20:10:00 83 mm[Hg] [facility] pressure [facility] Heart rate 2023-01-28 20:10:00 78 /min [facility] Body height 2023-01-28 20:10:00 172.7 cm [facility] Body weight 2023-01-28 20:10:00 84.959 kg [facility] BMI 2023-01-28 20:10:00 28.48 kg/m2 [facility] Oxygen saturation in 2023-01-28 20:10:00 100 /min [facility] Arterial blood by [facility] Systolic blood 2023-01-21 02:45:00 124 mm[Hg] [facility] pressure [facility] Diastolic blood 2023-01-21 02:45:00 84 mm[Hg] [facility]ive rs[facility] of pressure [facility] Heart rate 2023-01-21 02:45:00 87 /min [facility] Body temperature 2023-01-21 02:45:00 37.11 [place] [facility] Respiratory rate 2023-01-21 02:45:00 16 /min [facility] Body height 2023-01-21 02:45:00 172.7 cm [facility] Body weight 2023-01-21 02:45:00 83.915 kg [facility] BMI 2023-01-21 02:45:00 28.13 kg/m2 [facility] Oxygen saturation in 2023-01-21 02:45:00 98 /min [facility] Arterial blood by [facility] Systolic blood 2023-01-18 17:57:00 111 mm[Hg] [facility] of pressure [facility] Diastolic blood 2023-01-18 17:57:00 74 mm[Hg] [facility]ive rsity of pressure [facility] Respiratory rate 2023-01-18 17:57:00 16 /min [facility] Oxygen saturation in 2023-01-18 17:57:00 99 /min [facility] Arterial blood by [facility] P[facility] Body temperature 2023-01-18 17:16:00 36.22 [place] [facility] Heart rate 2023-01-18 16:40:00 67 /min [facility] Systolic blood 2023-01-18 17:16:00 106 mm[Hg] [facility] pressure [facility] Diastolic blood 2023-01-18 17:16:00 63 mm[Hg] [facility] rs[facility] of pressure [facility] Body temperature 2023-01-18 17:16:00 36.22 [place] [facility] Respiratory rate 2023-01-18 17:16:00 15 /min [facility] Oxygen saturation in 2023-01-18 17:16:00 98 /min [facility] Arterial blood by [facility] Heart rate 2023-01-18 16:40:00 67 /min [facility] Systolic blood 2023-01-13 18:00:00 124 mm[Hg] [facility] Diastolic blood 2023-01-13 18:00:00 81 mm[Hg] Un[facility] Heart rate 2023-01-13 18:00:00 88 /min [facility] Body height 2023-01-13 18:00:00 172.7 cm [facility] Body weight 2023-01-13 18:00:00 83.734 kg [facility] BMI 2023-01-13 18:00:00 28.07 kg/m2 [facility] Systolic blood 2023-01-08 19:52:00 146 mm[Hg] [facility] Diastolic blood 2023-01-08 19:52:00 90 mm[Hg] [facility] Heart rate 2023-01-08 19:52:00 89 /min [facility] Body temperature 2023-01-08 19:52:00 37.22 [place] [facility] Respiratory rate 2023-01-08 19:52:00 22 /min [facility] Body height 2023-01-08 19:52:00 172.7 cm [facility] Body weight 2023-01-08 19:52:00 83.915 kg [facility] BMI 2023-01-08 19:52:00 28.13 kg/m2 [facility] Oxygen saturation in 2023-01-08 19:52:00 100 /min [facility] of Arterial blood by [facility] Pulse oximetry Branch Systolic blood 2022-12-21 13:55:00 137 mm[Hg] [facility] of pressure [facility] Diastolic blood 2022-12-21 13:55:00 85 mm[Hg] [facility] rs[facility] of pressure [facility] Heart rate 2022-12-21 13:55:00 83 /min [facility] Body height 2022-12-21 13:55:00 172.7 cm [facility] Body weight 2022-12-21 13:55:00 84.732 kg [facility] BMI 2022-12-21 13:55:00 28.40 kg/m2 [facility] Oxygen saturation in 2022-12-21 13:55:00 97 /min [facility]terial blood by [facility]rie Pulse oximetry Branch Systolic blood 2022-12-07 02:48:00 132 mm[Hg] Univer [facility]ity of pressure [facility] Diastolic blood 2022-12-07 02:48:00 88 mm[Hg] Unive rsity of pressure [facility] Heart rate 2022-12-07 02:48:00 84 /min Universi ty of [facility] Body temperature 2022-12-07 02:48:00 37.22 [place] Univ ersity of [facility] Respiratory rate 2022-12-07 02:48:00 18 /min Univ ersity of [facility] Body height 2022-12-07 02:48:00 170.2 cm [facility] Body weight 2022-12-07 02:48:00 83.915 kg [facility] BMI 2022-12-07 02:48:00 28.98 kg/m2 [facility]i ty of [facility] Oxygen saturation in 2022-12-07 02:48:00 98 /min [facility] Arterial blood by [facility] Pulse oximetry Branch Systolic blood 2022-12-03 17:55:00 124 mm[Hg] Univer sity of pressure [facility] Diastolic blood 2022-12-03 17:55:00 77 mm[Hg] Unive rsity of pressure [facility] Heart rate 2022-12-03 17:55:00 78 /min Universi ty of [facility] Body temperature 2022-12-03 17:55:00 36 [place] [facility] ersity of [facility] Body height 2022-12-03 17:55:00 172.7 cm [facility] Body weight 2022-12-03 17:55:00 85.049 kg [facility] BMI 2022-12-03 17:55:00 28.51 kg/m2 [facility] Body height 2022-11-26 18:04:00 172.7 cm [facility] Body weight 2022-11-26 18:04:00 83.915 kg [facility] BMI 2022-11-26 18:04:00 28.13 kg/m2 [facility]i ty of [facility] Body mass index 2022-11-26 18:04:00 91.75 % Unive rsity of (BMI) [Percentile] [facility] Per age and sex Branch Systolic blood 2022-11-19 16:10:00 135 mm[Hg] Univer sity of pressure [facility] Diastolic blood 2022-11-19 16:10:00 88 mm[Hg] Unive rsity of pressure [facility] Heart rate 2022-11-19 16:10:00 80 /min [facility]i ty of [facility] Body height 2022-11-19 16:10:00 172.7 cm [facility]i ty of [facility] Body weight 2022-11-19 16:10:00 86.047 kg [facility]i ty of [facility] BMI 2022-11-19 16:10:00 28.84 kg/m2 [facility]i ty of [facility] Body mass index 2022-11-19 16:10:00 93.48 % Unive rsity of (BMI) [Percentile] [place] [facility] Per age and sex Branch Oxygen saturation in 2022-11-19 16:10:00 97 /min [facility] of Arterial blood by [facility] Pulse oximetry Branch Systolic blood 2022-11-17 17:53:00 101 mm[Hg] Univer sity of pressure [facility] Diastolic blood 2022-11-17 17:53:00 63 mm[Hg] Unive rsity of pressure [facility] Heart rate 2022-11-17 17:53:00 81 /min [facility]i ty of [facility] Body temperature 2022-11-17 17:53:00 36.5 [place] Univ ersity of [facility] Body height 2022-11-17 17:53:00 172.7 cm [facility]i ty of [facility] Body weight 2022-11-17 17:53:00 86.183 kg [facility]i [facility] of [facility] BMI 2022-11-17 17:53:00 28.89 kg/m2 [facility] ty of [facility] Body mass index 2022-11-17 17:53:00 93.59 % Unive rsity of (BMI) [Percentile] [place] [facility] Per age and sex Branch Systolic blood 2022-11-16 14:15:00 127 mm[Hg] Univer sity of pressure [facility] Diastolic blood 2022-11-16 14:15:00 78 mm[Hg] Unive rsity of pressure [facility] Heart rate 2022-11-16 14:15:00 78 /min [facility]i ty of [facility] Respiratory rate 2022-11-16 14:15:00 19 /min Univ ers[facility] Body height 2022-11-16 14:15:00 172.7 cm [facility] Body weight 2022-11-16 14:15:00 86.274 kg [facility] BMI 2022-11-16 14:15:00 28.92 kg/m2 [facility] Body mass index 2022-11-16 14:15:00 93.66 % Unive rsity of (BMI) [Percentile] [place] [facility] Per age and sex Branch Oxygen saturation in 2022-11-16 14:15:00 96 /min [facility] Arterial blood by [facility] cherie Pulse oximetry Branch Heart rate 2022-11-13 05:05:00 86 /min [facility] Respiratory rate 2022-11-13 05:05:00 16 /min Univ [facility] Oxygen saturation in 2022-11-13 05:05:00 100 /min [facility] Arterial blood by [facility] Pulse oximetry Branch Systolic blood 2022-11-13 02:41:00 124 mm[Hg] Univer [facility]ity of pressure [facility] Diastolic blood 2022-11-13 02:41:00 85 mm[Hg] Unive rsity of pressure [facility] Body temperature 2022-11-13 02:41:00 37.11 [place] [facility] Body height 2022-11-13 02:41:00 172.7 cm [facility] Body weight 2022-11-13 02:41:00 85.73 kg [facility] BMI 2022-11-13 02:41:00 28.74 kg/m2 [facility] Body mass index 2022-11-13 02:41:00 93.30 % Unive rsity of (BMI) [Percentile] [place] [facility] Per age and sex Branch Systolic blood 2022-11-03 14:32:00 127 mm[Hg] Univer sity of pressure [facility] Diastolic blood 2022-11-03 14:32:00 82 mm[Hg] [facility]ive rsity of pressure [facility] Heart rate 2022-11-03 14:32:00 87 /min [facility] Body temperature 2022-11-03 14:32:00 36.83 [place] [facility] Respiratory rate 2022-11-03 14:32:00 18 /min Univ [facility] Body height 2022-11-03 14:32:00 172.7 cm [facility] Body weight 2022-11-03 14:32:00 85.322 kg [facility] BMI 2022-11-03 14:32:00 28.60 kg/m2 [facility] Body mass index 2022-11-03 14:32:00 93.03 % Unive rsity of (BMI) [Percentile] [place] [facility] Per age and sex Branch Oxygen saturation in 2022-11-03 14:32:00 98 /min [facility] Arterial blood by [facility] Pulse oximetry Branch Systolic blood 2022-10-29 12:12:00 113 mm[Hg] Univer [facility]ity of pressure [facility] Diastolic blood 2022-10-29 12:12:00 68 mm[Hg] Unive rsity of pressure [facility] Heart rate 2022-10-29 12:12:00 98 /min [facility] Body temperature 2022-10-29 12:12:00 36.83 [place] [facility] Respiratory rate 2022-10-29 12:12:00 15 /min Univ ers[facility] Oxygen saturation in 2022-10-29 12:12:00 97 /min [facility] Arterial blood by [facility] Pulse oximetry Branch Body weight 2022-10-29 07:58:00 83.915 kg [facility] BMI 2022-10-29 07:58:00 28.13 kg/m2 [facility] Body mass index 2022-10-29 07:58:00 91.90 % Unive rsity of (BMI) [Percentile] [place] [facility] Per age and sex Branch Systolic blood 2022-10-28 02:00:00 128 mm[Hg] Univer [facility]ity of pressure [facility] Diastolic blood 2022-10-28 02:00:00 77 mm[Hg] Unive rsity of pressure [facility] Heart rate 2022-10-28 02:00:00 71 /min [facility] Respiratory rate 2022-10-28 02:00:00 17 /min Univ ers[facility] Oxygen saturation in 2022-10-28 02:00:00 97 /min [facility] Arterial blood by [facility] Pulse oximetry Branch Body temperature 2022-10-28 00:46:00 36.89 [place] [facility] Body height 2022-10-28 00:46:00 172.7 cm [facility] Body weight 2022-10-28 00:46:00 83.915 kg [facility] BMI 2022-10-28 00:46:00 28.13 kg/m2 [facility] Body mass index 2022-10-28 00:46:00 91.92 % Unive rsity of (BMI) [Percentile] [place] [facility] Per age and sex Branch Systolic blood 2022-10-20 22:00:00 116 mm[Hg] [facility] Diastolic blood 2022-10-20 22:00:00 81 mm[Hg] [facility] Heart rate 2022-10-20 22:00:00 91 /min [facility] Respiratory rate 2022-10-20 22:00:00 16 /min Univ [facility] Oxygen saturation in 2022-10-20 22:00:00 98 /min [facility] Arterial blood by [facility] Pulse oximetry Branch Body temperature 2022-10-20 19:24:00 37.22 [place] [facility] Body height 2022-10-20 19:24:00 172.7 cm [facility] Body weight 2022-10-20 19:24:00 83.915 kg [facility] BMI 2022-10-20 19:24:00 28.13 kg/m2 [facility] Body mass index 2022-10-20 19:24:00 91.95 % Unive rsity of (BMI) [Percentile] [place] [facility] Per age and sex Branch Systolic blood 2022-10-09 06:00:00 123 mm[Hg] Univer sity of pressure [facility] Diastolic blood 2022-10-09 06:00:00 74 mm[Hg] Unive rsity of pressure [facility] Heart rate 2022-10-09 06:00:00 74 /min [facility] Respiratory rate 2022-10-09 06:00:00 16 /min Univ ersity of [facility] Oxygen saturation in 2022-10-09 06:00:00 96 /min University Arterial blood by [facility] Pulse oximetry Branch Body temperature 2022-10-09 03:45:00 37.11 [place] [facility] ersity of [facility] Body height 2022-10-09 03:45:00 172.7 cm [facility] Body weight 2022-10-09 03:45:00 83.099 kg [facility] BMI 2022-10-09 03:45:00 27.86 kg/m2 [facility] ty of [facility] Body mass index 2022-10-09 03:45:00 91.28 % Unive rsity of (BMI) [Percentile] [place] [facility] Per age and sex Branch Systolic blood 2022-09-15 13:33:00 125 mm[Hg] Univer sity of pressure [facility] Diastolic blood 2022-09-15 13:33:00 84 mm[Hg] Unive rsity of pressure [facility] Heart rate 2022-09-15 13:33:00 78 /min [facility]i ty of [facility] Body temperature 2022-09-15 13:33:00 36.78 [place] [facility] ersity of [facility] Body height 2022-09-15 13:33:00 170.2 cm [facility] Body weight 2022-09-15 13:33:00 83.825 kg [facility] BMI 2022-09-15 13:33:00 28.94 kg/m2 [facility] of [facility] Body mass index 2022-09-15 13:33:00 93.96 % Unive rsity of (BMI) [Percentile] [place] [facility] Per age and sex Branch Systolic blood 2022-08-19 14:06:00 127 mm[Hg] Univer sity of pressure [facility] Diastolic blood 2022-08-19 14:06:00 85 mm[Hg] Unive rsity of pressure [facility] Branch Heart rate 2022-08-19 14:06:00 93 /min [facility] Body height 2022-08-19 14:06:00 170.2 cm [facility] Body weight 2022-08-19 14:06:00 83.19 kg [facility] BMI 2022-08-19 14:06:00 28.72 kg/m2 [facility] Body mass index 2022-08-19 14:06:00 93.64 % Unive rsity of (BMI) [Percentile] [facility] ica Per age and sex Branch Oxygen saturation in 2022-08-19 14:06:00 97 /min [facility] Arterial blood by [facility] cherie Pulse oximetry Branch Systolic blood 2022-08-18 16:31:00 115 mm[Hg] Univer sity of pressure [facility] Diastolic blood 2022-08-18 16:31:00 76 mm[Hg] Unive rsity of pressure [facility] Heart rate 2022-08-18 16:31:00 80 /min [facility] Respiratory rate 2022-08-18 16:31:00 18 /min [facility] Body weight 2022-08-18 16:31:00 85.078 kg [facility]i ty of [facility] Oxygen saturation in 2022-08-18 16:31:00 95 /min [facility] Arterial blood by [facility] cherie Pulse oximetry Branch Systolic blood 2022-07-13 02:06:00 134 mm[Hg] Univer sity of pressure [facility] Diastolic blood 2022-07-13 02:06:00 83 mm[Hg] Unive rsity of pressure [facility] Heart rate 2022-07-13 02:06:00 108 /min [facility] Body temperature 2022-07-13 02:06:00 37 [place] Univ ersity of [facility] Branch Respiratory rate 2022-07-13 02:06:00 18 /min Univ ers[facility] Body height 2022-07-13 02:06:00 172.7 cm [facility] Body weight 2022-07-13 02:06:00 83.915 kg [facility] BMI 2022-07-13 02:06:00 28.13 kg/m2 [facility] Body mass index 2022-07-13 02:06:00 92.48 % Unive rsity of (BMI) [Percentile] [place] [facility] Per age and sex Branch Oxygen saturation in 2022-07-13 02:06:00 99 /min [facility] Arterial blood by [facility] Pulse oximetry Branch Systolic blood 2022-06-22 14:59:00 122 mm[Hg] Univer sity of pressure [facility] Diastolic blood 2022-06-22 14:59:00 83 mm[Hg] Unive rsity of pressure [facility] Heart rate 2022-06-22 14:59:00 89 /min [facility] Respiratory rate 2022-06-22 14:59:00 19 /min Univ [facility] Body height 2022-06-22 14:59:00 172.7 cm [facility] Body weight 2022-06-22 14:59:00 83.462 kg [facility] BMI 2022-06-22 14:59:00 27.98 kg/m2 [facility] Body mass index 2022-06-22 14:59:00 92.21 % Unive rsity of (BMI) [Percentile] [place] [facility] Per age and sex Branch Oxygen saturation in 2022-06-22 14:59:00 96 /min [facility] Arterial blood by [facility] Pulse oximetry Branch Systolic blood 2022-06-21 09:30:00 99 mm[Hg] Univer sity of pressure [facility] Diastolic blood 2022-06-21 09:30:00 69 mm[Hg] Unive rsity of pressure [facility] Heart rate 2022-06-21 09:30:00 94 /min [facility] Respiratory rate 2022-06-21 09:30:00 20 /min Univ ers[facility] Oxygen saturation in 2022-06-21 09:30:00 96 /min [facility]ial blood by [facility] Pulse oximetry Branch Body temperature 2022-06-21 04:01:00 37.11 [place] [facility] Body height 2022-06-21 04:01:00 172.7 cm [facility] Body weight 2022-06-21 04:01:00 83.915 kg [facility] BMI 2022-06-21 04:01:00 28.13 kg/m2 [facility]i ty of [facility] Body mass index 2022-06-21 04:01:00 92.59 % Unive rsity of (BMI) [Percentile] [facility] Per age and sex Branch Systolic blood 2022-06-17 04:30:00 126 mm[Hg] Univer sity of pressure [facility] Diastolic blood 2022-06-17 04:30:00 76 mm[Hg] Unive rsity of pressure [facility] Heart rate 2022-06-17 04:30:00 125 /min Universi ty of [facility] Respiratory rate 2022-06-17 04:30:00 20 /min Univ ersity of [facility] Oxygen saturation in 2022-06-17 04:30:00 100 /min [facility] Arterial blood by [facility] Pulse oximetry Branch Body temperature 2022-06-16 23:56:00 37.44 [place] Univ ersity of [facility] Body weight 2022-06-16 21:02:00 82.101 kg Universi ty of [facility] Systolic blood 2022-05-29 07:01:00 116 mm[Hg] Univer sity of pressure [facility] Diastolic blood 2022-05-29 07:01:00 64 mm[Hg] Unive rsity of pressure [facility] Heart rate 2022-05-29 07:01:00 116 /min [facility]i ty of [facility] Respiratory rate 2022-05-29 07:01:00 18 /min Univ ersity of [facility] Oxygen saturation in 2022-05-29 07:01:00 97 /min [facility] Arterial blood by [facility] Pulse oximetry Branch Body temperature 2022-05-29 01:29:00 36.94 [place] Univ ersity of [facility] Body height 2022-05-29 01:29:00 172.7 cm [facility]i ty of [facility] Body weight 2022-05-29 01:29:00 79.334 kg [facility]i ty of [facility] BMI 2022-05-29 01:29:00 26.59 kg/m2 Universi ty [facility] Body mass index 2022-05-29 01:29:00 87.81 % Unive rsity of (BMI) [Percentile] [facility] ical Per age and sex Branch HEIGHT 2022-04-08 13:03:00 172.7 cm WEIGHT 2022-04-08 13:03:00 82.01 kg HEIGHT 2022-04-08 13:03:00 172.7 cm WEIGHT 2022-04-08 13:03:00 82.01 kg HEIGHT 2022-04-08 13:03:00 172.7 cm WEIGHT 2022-04-08 13:03:00 82.01 kg Systolic blood 2019-03-01 16:13:00 133 mm[Hg] Univer sity of pressure [facility] Diastolic blood 2019-03-01 16:13:00 77 mm[Hg] Unive rsity of pressure [facility] Heart rate 2019-03-01 16:13:00 76 /min Universi ty of [facility] Body temperature 2019-03-01 16:13:00 36.89 [place] Univ ersity of [facility] Respiratory rate 2019-03-01 16:13:00 20 /min Univ ersity of [facility] Body height 2019-03-01 16:13:00 168.1 cm [facility]i ty of [facility] Body weight 2019-03-01 16:13:00 58.3 kg [facility]i ty of [facility] BMI 2019-03-01 16:13:00 20.63 kg/m2 Universi ty of [facility] Systolic blood 2019-03-01 16:13:00 133 mm[Hg] Univer sity of pressure [facility] Diastolic blood 2019-03-01 16:13:00 77 mm[Hg] Unive rsity of pressure [facility] Heart rate 2019-03-01 16:13:00 76 /min Universi ty of [facility] Body temperature 2019-03-01 16:13:00 36.89 [place] Univ ersity of [facility] Respiratory rate 2019-03-01 16:13:00 20 /min Univ ersity of [facility] Body height 2019-03-01 16:13:00 168.1 cm [facility]i ty of [facility] Body weight 2019-03-01 16:13:00 58.3 kg [facility]i ty of [facility] BMI 2019-03-01 16:13:00 20.63 kg/m2 [facility]i ty of [facility] Systolic blood 2018-03-08 19:32:00 127 mm[Hg] Univer sity of [facility] Diastolic blood 2018-03-08 19:32:00 84 mm[Hg] Unive rsity of [facility] Heart rate 2018-03-08 19:32:00 92 /min [facility] Body temperature 2018-03-08 19:32:00 36.67 [place] [facility] Body height 2018-03-08 19:32:00 166.1 cm [facility] Body weight 2018-03-08 19:32:00 51.1 kg [facility] BMI 2018-03-08 19:32:00 18.52 kg/m2 [facility] Systolic blood 2022-04-08 13:03:00 125 mm[Hg] [facility] Diastolic blood 2022-04-08 13:03:00 82 mm[Hg] [facility] S [facility] Heart rate 2022-04-08 13:03:00 80 /min [facility] Body temperature 2022-04-08 13:03:00 37.11 [place] [facility] Body height 2022-04-08 13:03:00 172.7 cm [facility] Body weight 2022-04-08 13:03:00 82.01 kg [facility] BMI 2022-04-08 13:03:00 27.49 kg/m2 [facility] Body mass index 2022-04-08 13:03:00 91.28 % [facility] (BMI) [Percentile] [facility] enter Per age and sex Oxygen saturation in 2022-04-08 13:03:00 96 /min [facility] Arterial blood by Medical Ce [facility]ter Pulse oximetry Procedures Procedure Date / Time Performing Clinician Source Performed XR CHEST 2 VW [facility]23[facility]03-20 [facility] 05[facility]:23 [facility] RAPID STREP SCREEN FOR 2023-03-[facility]ASE [facility] 04:17:00 [facility] COMP. METABOLIC PANEL 2023-03-20 Bk, [facility] ([id number]) 04:17:00 Medical Branch CBC WITH DIFF 2023-03-20 Bk [facility] [place] 04:17:00 Medical Branch GALV ONLY - INFLUENZA A B 2023-03-20 Adeline Bourgeois [facility] RSV PCR 04:17:00 Medical Branch COVID-19 (ID NOW RAPID 2023-03-20 Bk [facility] TESTING) 04:17:00 Medical Branch CONSENT/REFUSAL FOR 2023-03-20 Doctor Unassigned, No [facility] DIAGNOSIS AND TREATMENT 03:12:23 Name Medical Branch CONSENT/REFUSAL FOR 2023-03-18 Doctor Unassigned, No [facility] DIAGNOSIS AND TREATMENT 18:12:13 Name Medical Branch XR CHEST 2 VW 2023-03-10 Colleen Varma [facility] 00:48:36 Medical Branch URINALYSIS 2023-03-[address] [facility] 00:42:00 Medical Branch COMP. METABOLIC PANEL 2023-03-[address] [facility] ([id number]) 23:41:00 Medical Branch CBC WITH DIFF 2023-03-09 Avani, [facility] 23:41:00 Medical Branch CONSENT/REFUSAL FOR 2023-03-09 Doctor Unassigned, No [facility] DIAGNOSIS AND TREATMENT 21:49:15 Name Medical Branch PATIENT 2023-03-04 Doctor Unassigned, No [facility] TEACHING/INSTRUCTIONS- 05:01:00 [facility] Medical B ranch OUTPATIENT EKG-12 LEAD 2023-03-04 [facility] [place]as 00:58:09 Medical Branch TROPONIN I 2023-03-03 [facility] [place] 19:25:00 Medical Branch COMP. METABOLIC PANEL 2023-03-03 [facility] ([id number]) 19:25:00 Medical Branch N-TERMINAL PRO-BNP 2023-03-03 [facility] 19:25:00 Medical Branch CONSENT/REFUSAL FOR 2023-03-03 Doctor Unassigned, No [facility] DIAGNOSIS AND TREATMENT 18:26:39 Name Medical Branch XR HAND 3+ VW RIGHT 2023-03-02 Barrie Malhotra [facility] 18:23:39 Medical Branch ELECTROPHYSIOLOGY PROCEDURE 2023-02-23 Primo [facility] 14:13:51 Parth [facility] AUTHORIZATION FOR RELEASE 2023-02-19 Doctor Unassigned, No [facility] OF PHI 05:01:00 [facility] EKG-12 LEAD 2023-02-01 Arsalan Grant [facility] xa 06:36:[address] CHEST PULMONARY 2023-02-01 Arsalan Grant [facility] ANGIOGRAM 05:31:00 [facility] TROPONIN I 2023-02-01 Arsalan Grant [facility] 05:13:00 [facility] COMP. METABOLIC PANEL 2023-02-01 Arsalan Grant [facility] ([id number]) 05:13:00 [facility] URINE DRUG (IMMUNOASSAY) - 2023-02-01 Arsalan Grant [facility] COMPREHENSIVE DRUG SCREEN 05:13:00 [facility] CBC WITH DIFF 2023-02-01 Arsalan Grant [facility] 05:13:00 [facility] XR CHEST 1 VW 2023-02-01 Arsalan Grant [facility] xa 04:17:00 [facility] CONSENT/REFUSAL FOR 2023-02-01 Doctor Unassigned, No [facility] DIAGNOSIS AND TREATMENT 03:26:07 [facility] MEDICATION CORRESPONDENCE 2023-01-28 Doctor Unassigned, No [facility] 05:01:00 [facility] CONSENT/REFUSAL FOR 2023-01-21 Doctor Unassigned, No [facility] DIAGNOSIS AND TREATMENT 02:34:06 [facility] FL TIME OR (NON-REPORTABLE) 2023-01-18 Hannah Ventura Un [facility] 17:11:45 Medical Geraldine [place] TIME OR (NON-REPORTABLE) 2023-01-18 Hannah Ventura Un [facility] 17:11:45 Medical Branch METACARPAL ORIF 2023-01-18 Hannah Ventura [facility] 15:47:00 [facility] POCT GLUCOSE (AUTOMATED) 2023-01-18 Hannah Ventura [facility] 14:50:00 Medical Branch POCT GLUCOSE (AUTOMATED) 2023-01-18 Hannah Ventura [facility] 14:50:00 Medical Branch EXTERNAL PROVIDER RECORDS 2023-01-18 Doctor Unassigned, No [facility] 05:01:00 Name Medical Branch BASIC METABOLIC PANEL (NA, 2023-01-15 Hannah Ventura Uni versity [facility] K, CL, CO2, GLUCOSE, BUN, 13:06:00 Medica l Branch CREATININE, CA) CBC WITH DIFF 2023-01-15 Hannah Ventura [facility] 13:06:00 Medical Branch URINALYSIS 2023-01-15 Hannah Ventura [facility] 13:06:00 Medical Branch HB ABO GROUPING 2023-01-15 Hannah Ventura [facility] 13:06:00 Medical Branch ASSIGNMENT OF BENEFITS 2023-01-15 Doctor Unassigned, No [facility] [place] 12:48:04 Name Medical Branch EXTERNAL PROVIDER RECORDS 2023-01-14 Doctor Unassigned, No [facility] 05:01:00 Name Medical Branch EXTERNAL PROVIDER RECORDS 2023-01-14 Doctor Unassigned, No [facility] 05:01:00 Name Medical Branch REFERRAL- REQUEST/RESPONSE 2023-01-13 Doctor Unassigned, No [facility] 05:01:00 Name Medical Branch ASSIGNMENT OF BENEFITS 2023-01-08 Doctor Unassigned, No [facility] [place] 22:03:56 Name Medical Branch XR HAND <3 VW RIGHT 2023-01-08 [facility] 20:29:08 Medical Branch CONSENT/REFUSAL FOR 2023-01-08 Doctor Unassigned, No [facility] DIAGNOSIS AND TREATMENT 19:46:31 Name Medical Branch REFERRAL- REQUEST/RESPONSE 2023-01-08 Doctor Unassigned, No [facility] 05:01:00 Name Medical Branch INSURANCE CORRESPONDENCE 2022-12-10 Doctor Unassigned, No [facility] 05:01:00 Name Medical Branch PHYSICIAN ORDERS 2022-12-08 Doctor Unassigned, No [facility] 05:01:00 Name Medical Branch ASSIGNMENT OF BENEFITS 2022-12-07 Doctor Unassigned, No [facility] [place] 04:38:17 Name Medical Branch XR CHEST 1 VW 2022-12-07 Tyron Nuñez [facility] [place] 03:58:05 Medical Branch NOTICE OF PRIVACY PRACTICES 2022-12-07 Doctor Unassigned, N o [facility] 02:24:27 Name Medical Branch CONSENT/REFUSAL FOR 2022-12-07 Doctor Unassigned, No [facility] DIAGNOSIS AND TREATMENT 02:23:58 Name Medical Branch INSURANCE CORRESPONDENCE 2022-11-18 Doctor Unassigned, No [facility] 05:01:00 Name Medical Branch XR SPINE THORACIC 2 VW 2022-11-[address] [facility] 18:11:54 Medical Branch XR LUMBAR SPINE 2 VW 2022-11-17 Beena Ramirez [facility] 18:11:42 Medical Branch XR CERVICAL SPINE 2 VW 2022-11-[address] [facility] 18:11:11 Medical Branch PATIENT QUESTIONNAIRE 2022-11-17 Doctor Unassigned, No Univ [facility] 05:01:00 Name Medical Branch MEDICATION CORRESPONDENCE 2022-11-16 Doctor Unassigned, No [facility] 05:01:00 Name Medical Branch XR CHEST 1 VW 2022-11-13 Colleen Varma [facility] 03:14:48 Medical Branch DISCLOSURE AND CONSENT, 2022-11-03 Doctor Unassigned, No [facility] MED[facility] SURGICAL 05:01:00 Name Medical Bra nch PROCEDURES URINALYSIS 2022-10-29 [facility] [place] 09:11:00 Medical Branch LIPASE 2022-10-29 [facility] [place] 09:08:00 Medical Branch MAGNESIUM 2022-10-29 [facility] [place] 09:08:00 Medical Branch COMP. METABOLIC PANEL 2022-10-29 [facility] ([id number]) 09:08:00 Medical Branch CBC WITH DIFF 2022-10-29 [facility] [place] 09:08:00 Medical Branch KEPPRA (LEVETIRACETAM) 2022-10-29 [facility] 09:08:00 Medical Branch CONSENT/REFUSAL FOR 2022-10-29 Doctor Unassigned, No [facility] [place] [facility]IS [facility] TREATMENT 07:52:18 Name Medical Branch EKG-12 LEAD 2022-10-28 Pita Malhotra [facility] [place] ex 02:24:23 Medical Branch TROPONIN I 2022-10-28 Roscoe Pita [facility] [place] ex 01:37:00 Medical Branch COMP. METABOLIC PANEL 2022-10-28 Pita Malhotra [facility] ([id number]) 01:37:00 Medical Branch CBC WITH DIFF 2022-10-28 Pita Malhotra [facility] [place] 01:37:00 Medical Branch D-DIMER 2022-10-28 Pita Malhotra [facility] [place] ex 01:37:00 Medical Branch CONSENT/REFUSAL FOR 2022-10-28 Doctor Unassigned, No [facility] DIAGNOSIS AND TREATMENT 00:34:51 Name Medical Branch MAGNESIUM 2022-10-20 [facility] 19:56:00 Medical Branch TROPONIN I 2022-10-20 [facility] xa 19:56:00 Medical Branch COMP. METABOLIC PANEL 2022-10-20 [facility] ([id number]) 19:56:00 Medical Branch CBC WITH DIFF 2022-10-20 [facility] 19:56[facility]00 Medical Branch D-DIMER 2022-10-20 [facility] 19:56:00 Medical Branch N-TERMINAL PRO-BNP 2022-10-20 [facility] 19:56:00 Medical Branch CONSENT/REFUSAL FOR 2022-10-20 Doctor Unassigned, No [facility] DIAGNOSIS AND TREATMENT 19:10:[address] ABDOMEN PELVIS W 2022-10-09 Ruben Belcher [facility] CONTRAST 05:16:10 Medical Branch LIPASE 2022-10-09 Ruben Belcher [facility] [place] 04:02:00 Medical Branch COMP. METABOLIC PANEL 2022-10-09 Ruben Belcher [facility] ([id number]) 04:02:00 Medical Branch CBC WITH DIFF 2022-10-09 [facility] [place] 04:02:00 Medical Branch URINALYSIS 2022-10-09 Ruben Belcher [facility] 04:02:00 Medical Branch NOTICE OF PRIVACY PRACTICES 2022-10-09 Doctor Unassigned, N o [facility] 03:36:47 Name Medical Branch CONSENT/REFUSAL FOR 2022-10-09 Doctor Unassigned, No [facility] DIAGNOSIS AND TREATMENT 03:34:38 Name Medical Branch REFERRAL- REQUEST/RESPONSE 2022-09-21 Doctor Unassigned, No [facility] 06:01:00 Name Medical Branch MEDICATION CORRESPONDENCE 2022-08-20 Doctor Unassigned, No [facility] 06:01:00 Name Medical Branch REFERRAL- REQUEST/RESPONSE 2022-08-04 Doctor Unassigned, No [facility] 06:01:00 Name Medical Branch MEDICATION CORRESPONDENCE 2022-08-01 Doctor Unassigned, No [facility] 06:01:00 Name Medical Branch MEDICATION CORRESPONDENCE 2022-07-30 Doctor Unassigned, No [facility] 06:01:00 Name Medical Branch MEDICATION CORRESPONDENCE 2022-07-29 Doctor Unassigned, No [facility] 06:01:00 Name Medical Branch INSURANCE CORRESPONDENCE 2022-07-21 Doctor Unassigned, No [facility] 06:01:00 Name Medical Branch MEDICATION CORRESPONDENCE 2022-07-16 Doctor Unassigned, No [facility] 06:01:00 Name Medical Branch EKG-12 LEAD 2022-07-13 Robert Gloria [facility] ex 04:05:39 Medical Branch XR CHEST 1 VW 2022-07-13 Robert Gloria [facility] ex 03:18:00 Medical Branch CONSENT/REFUSAL FOR 2022-07-13 Doctor Unassigned, No [facility] DIAGNOSIS AND TREATMENT 01:56:55 Name Medical Branch REFERRAL- REQUEST/RESPONSE 2022-06-24 Doctor Unassigned, No [facility] 06:01:00 Name Medical Branch CONSENT/REFUSAL FOR 2022-06-22 Doctor Unassigned, No [facility] DIAGNOSIS AND TREATMENT 14:45:[address] THORAX WO CONTRAST 2022-06-21 Meghan Rosario [facility] 06:47:00 Medical Branch TROPONIN I 2022-06-21 Abraham Meghan [facility] 05:33:00 Medical Branch COMP. METABOLIC PANEL 2022-06-21 Abraham Replaced by [facility] ([id number]) 05:33:00 [facility] Branch CBC WITH DIFF 2022-06-21 Abraham [facility] [place] 05:33:00 [facility] PROTHROMBIN TIME / INR 2022-06-21 Abraham [facility] 05:33:00 [facility] Branch ACTIVATED PARTIAL THRMPLAS 2022-06-21 Meghan Rosario [facility] LIV 05:33:00 [facility] N-TERMINAL PRO-BNP 2022-06-21 Abraham Replaced by [facility] 05:33:00 [facility] XR CHEST 1 VW 2022-06-21 Abraham [facility] [place] 05:00:00 [facility] BLOOD CULTURE SCREEN 2022-06-21 Abraham Replaced by [facility] 04:29:00 [facility] RAPID INFLUENZA A/B 2022-06-21 Abraham [facility] 04:29:00 [facility] COVID-19 (ID NOW RAPID [facility]22[facility]06-[facility] 04:29:00 [facility] BLOOD CULTURE SCREEN 2022-06-21 Abraham Replaced by [facility] 04:15:00 [facility] Branch CONSENT/REFUSAL FOR 2022-06-21 Doctor Unassigned, No [facility] DIAGNOSIS AND TREATMENT 03:54:30 Name [facility] AUTHORIZATION TO RELEASE 2022-06-18 Doctor Unassigned, No [facility] PHI TO [facility] 06:01:[address] [facility] [address] CHEST PULMONARY 2022-06-16 Ruben Belcher [facility] ANGIOGRAM 23:13:02 [facility] Branch LIPASE 2022-06-16 Ruben Belcher [facility] [place] 22:15:00 Medical Branch COMP. METABOLIC PANEL 2022-06-16 Ruben Belcher [facility] ([id number]) 22:15:00 Medical Branch CBC WITH DIFF 2022-06-16 Ruben Belcher [facility] 22:15:00 Medical Branch RAPID STREP SCREEN FOR 2022-06-16 Ruben Belcher [facility] GROUP A 22:15:00 Medical Branch GALV ONLY - INFLUENZA A B 2022-06-16 [facility] 22:15:00 [facility] Branch COVID-19 (ID NOW RAPID 2022-06-16 Ruben Belcher [facility] TESTING) 22:15:00 Medical Branch LAB ONLY COVID 2022-06-16 Ruben Belcher [facility] [place] INTERPRETATION 22:15:00 [facility] Branch CONSENT/REFUSAL FOR 2022-06-16 Doctor Unassigned, No [facility] DIAGNOSIS AND TREATMENT 21:00:59 Name [facility] LACTIC ACID WHOLE BLOOD 2022-05-29 [facility] 04:08[facility]00 [facility] BLOOD CULTURE SCREEN 2022-05-29 [facility] 02:22:00 [facility] COMP. METABOLIC PANEL 2022-05-29 [facility][id number][facility] 02:22:00 [facility] CBC WITH DIFF 2022-05-29 [facility] 02:22:00 [facility] LACTIC ACID WHOLE BLOOD 2022-05-29 [facility] 02:21:00 [facility] URINALYSIS 2022-05-29 [facility] [place] 02:05:00 [facility] XR CHEST 1 VW 2022-05-29 [facility] [place] 02:03:57 [facility] NOTICE OF PRIVACY PRACTICES 2022-05-29 Doctor Unassigned, N o [facility] 01:16:26 Name [facility] CONSENT/REFUSAL FOR 2022-05-29 Doctor Unassigned, No [facility] DIAGNOSIS AND TREATMENT 01:15:44 Name [facility] COMPREHENSIVE METABOLIC 2022-04-[address] [facility] PANEL 14:15:00 [facility] BILIRUBIN, DIRECT 2022-04-[address] [facility] 14:15:00 [facility] CBC W/PLT COUNT & AUTO 2022-04-[address] [facility] DIFFERENTIAL 14:15:00 [facility] HEPATITIS A ANTIBODY, IGG 2022-04-[address] [facility] 14:15:00 [facility] HEPATITIS B SURFACE ANTIGEN 2022-04-08 Josuéri, Junior Aijaz [facility] 14:15:00 Medical Center HEPATITIS B SURFACE 2022-04-08 Willyaderi, Junior Aijaz [facility] ANTIBODY 14:15:00 Medical Center HEPATITIS B CORE ANTIBODY, 2022-04-08 Willyaderi Junior Aijaz [facility] TOTAL 14:15:00 Medical Center HEPATITIS C ANTIBODY 2022-04-08 Willyaderi, Junior Aijaz [facility] 14:15:00 Medical Center IRON, TIBC, % SAT. (WITHOUT 2022-04-08 Willyaderi, Junior Aijaz [facility] FERRITIN) 14:15:00 Medical Center FERRITIN 2022-04-08 Willyjaninari, [facility] 14:15:00 [facility] MOQEC-8-ZSTSPAUXLQN\\, SERUM 2022-04-08 Willytish [address] Aijaz [facility] 14:15:00 [facility] Center CERULOPLASMIN 2022-04-08 Willyjaninari, [facility] 14:15[facility] ANTI-NUCLEAR ANTIBODY (FERNANDA) 2022-04-08 [facility] 14:15:00 [facility] Center ACTIN (SMOOTH MUSCLE) 2022-04-08 Willytish Junior Kingstonomayra [facility] ANTIBODY, IGG 14:15:00 [facility] Center MITOCHONDRIA M2 ANTIBODY 2022-04-08 Armond Juniorcecilio Reeves [facility] (IGG) 14:15:00 Medical Center IMMUNOGLOBULIN G (IGG) 2022-04-08 Willyjaninari, Junior Aijaz [facility] 14:15:00 Medical Center CBC W/PLT COUNT & AUTO 2022-04-08 Willyjaninari, Junior Aijaz [facility] DIFFERENTIAL 14:15:00 Medical Center Plan of Care Planned Activity Planned Date Details Comments Source Future Scheduled 2026-01-29 DTAP/TDAP/TD VACCINES ([address] [facility] Test 00:00:00 - Td or Tdap) [facility] DTAP/TDAP/TD VACCINES (7 - Td or Tdap)] [...] screening Medical Cent er (procedure) [code = 375549093] Future Scheduled 2018-11-[address] [facility] 00:00:00 virus screening Medical Cent er (procedure) [code = 769693309] Future Scheduled 2018-11-[address] [facility] Test 00:00:00 virus screening Medical Cent er (procedure) [code = 346706490] Future Scheduled 2018-11-[address] [facility] Test 00:00:00 virus screening Medical Cent er (procedure) [code = 848602832] Future Scheduled 2018-11-[address] [facility] Test 00:00:00 virus screening Medical Cent er (procedure) [code = 287828031] Future Scheduled 2018-11-[address] [facility] Test 00:00:00 virus screening Medical Cent er (procedure) [code = 040099309] Future Scheduled 2018-11-[address] [facility] Test 00:00:00 virus screening Medical Cent er (procedure) [code = 092597538] Future Scheduled 2005-12-28 WELL CHILD EXAM (>[address] [facility] Test 00:00:00 and <= 18 YEARS) [code = [facility] WELL CHILD EXAM (>2 YEARS and <= 18 YEARS)] Future Scheduled 2005-12-28 WELL CHILD EXAM (>[address] [facility] Test 00:00:00 and <= 18 YEARS) [code = [facility] WELL CHILD EXAM (>2 YEARS and <= 18 YEARS)] Future Scheduled 2005-12-28 WELL CHILD EXAM (>[address] [facility] Test 00:00:00 and <= 18 YEARS) [code = [facility] WELL CHILD EXAM (>2 YEARS and <= 18 YEARS)] Future Scheduled 2005-12-28 WELL CHILD EXAM (>[address] [facility] Test 00:00:00 and <= 18 YEARS) [code = [facility] WELL CHILD EXAM (>2 YEARS and <= 18 YEARS)] Encounters Start End Encounter Admission Attending Care Care Encounter Source Date/Time Date/Time Type Type Clinicians Facility Department ID 2023-09-23 2023-09-23 Outpatient R PARTH MAURICE [facility] [id number] Univers 12:00:00 12:00:00 PARTH MAURICE y [facility] 2023-06-07 2023-06-07 Outpatient R YANCI MICHAEL [facility] [id number] Univers 11:00:00 11:00:00 YANCI MICHAEL i ty [facility] 2023-03-24 2023-03-24 Outpatient R JOSE CHRISTOPHER [facility] [id number] Univers 11:40:00 11:40:00 ity [facility] 2023-03-19 2023-03-20 Emergency X ADELINE BOURGEOIS [facility] [id number] Univers 22:19:00 03:01:00 ADELINE BOURGEOIS [facility] 2023-03-19 2023-03-20 Emergency Bk, TRAUMA [id number] Univers 22:19:00 03:01:00 [facility] [id number] [id number] [id number] [address] 2023-03-18 2023-03-18 Emergency X CINDY [facility] [id number] Univers 13:27:00 13:45:00 FAITH simental [facility] 2023-03-18 2023-03-[address] [facility] [id number] Univers 13:27:00 13:45:00 Faith COLEMAN [id number] ity [facility] [id number] [id number] [facility] 084 Geraldine 2023-03-16 2023-03-16 Hans Michael [facility] [id number] Univers 00:00:00 00:00:00 Yanci COLEMAN [id number] i ty [id number] [id number] [facility] 085 [facility] 2023-03-11 2023-03-11 Outpatient R PARTH MAURICE [facility] [id number] Univers 12:19:34 23:59:00 PARTH MAURICE ity of [facility] 2023-03-11 2023-03-[address] [facility] [address] [facility] [id number] Univers 12:19:34 23:59:00 Encounter Michael GÓMEZTON [id number] [id number] [id number] [facility] 844 [facility] 2023-03-11 2023-03-[address] [facility] [id number] Univers 00:00:00 00:00:00 (Out) [place] [id number] [id number] [id number] [facility] 059 [facility] 2023-03-11 2023-03-[address] [facility] [id number] Univers 00:00:00 00:00:00 (Out) [place] [id number] [id number] [id number] [place] [id number] [facility] 2023-03-09 2023-03-09 Emergency X Colleen VARMA [facility] [id number] Univers 16:56:00 20:56:00 ity of [facility] 2023-03-09 2023-03-09 Emergency Colleen Varma [facility] [id number] Univers 16:56:00 20:56:00 Karen COLEMAN [id number] i ty [place] [id number] [facility] 084 Geraldine 2023-03-09 2023-03-09 Telephone Primo, [facility] 1.2.840.114 [id number] Univers 00:00:00 00:00:00 Michael COLEMAN [id number] [place] [id number] Az dical NAL 059 Branch [facility] 2023-03-07 2023-03-[address] [facility] 1.2.840.114 [id number] Univers 00:00:00 00:00:00 [facility] [id number] ity of [place] [id number] [facility] 092 Geraldine OFFICE BUILDING 2023-03-05 2023-03-[address] [facility] [id number] Univers 00:00:00 00:00:00 Yanci COLEMAN [id number] i ty [facility] 4.[place] [id number] Az dicct NAL 085 [facility] 2023-03-04 2023-03-04 Orders Doctor DEE 1.2.840.114 [id number] Univers 00:00:00 00:00:00 Only Unassigned, MORGAN 350.1.13.10 ity of [place] [facility] 4.2.7.2.686 Morales as [id number] [facility] 009 Branch 2023-03-03 2023-03-03 Emergency X [facility] E[facility] [id number] Univers 13:42:00 20:01:00 MIL itliliana of [facility] 2023-03-03 2023-03-03 Emergency [facility] 1.2.840.114 [id number] Univers 13:42:00 20:01:00 Mil COLEMAN 350.1.13.10 i ty of [place] [id number] [place] 303924 Geraldine 2023-03-03 2023-03-03 Telephone AshwinJose [facility] 1.2.840.114 [id number] Univers 00:00:00 00:00:00 S HEALTH [id number] it y of [place] [id number] [facility] 092 Geraldine OFFICE [facility] 2023-03-03 2023-03-03 [facility]phone [facility] 1.2.840.114 [id number] Univers 00:00:00 00:00:00 [place] [id number] [place] [id number] [address] 2023-03-03 2023-03-03 Telephone [facility] 1.2.840.114 [id number] Univers 00:00:00 00:00:00 [place] [id number] [place] [id number] [address] 2023-03-02 2023-03-02 [facility] 1.2.840.114 [id number] Univers 12:50:00 23:59:00 Encounter [facility] [id number] ity of [facility] 4.2.7.2.686 Morales as JIGNA?BLEA [id number] [facility] 809 [facility][note 2] 2023-03-02 2023-03-02 [facility] [id number] Univers 13:00:00 13:38:29 BARRIE ity of [facility] 2023-03-02 2023-03-[address] [facility] 1.2.840.114 [id number] Univers 13:00:00 13:15:00 Visit [facility] HEALTH 350.1.13.10 it y of [place] 4.2.7.2.686 Morales as JIGNA?BLEA [id number] Az dical KNEY 198 Geraldine MEDICAL OFFICE BUILDING 2023-02-23 2023-02-23 Surgery DARIEN Maurice 1.2.840.114 [id number] Univers 11:15:00 12:00:00 Chogisela MORA 350.1.13.10 ity of [facility] 4.2.7.2.686 Morales as [id number] [address] 2023-02-23 2023-02-23 Outpatient R PARTH MAURICE [facility] [id number] Univers 07:04:00 11:06:00 PARTH MAURICE ity of [facility] 2023-02-23 2023-02-23 Hospital PrimoRONNIEE 1.2.840.114 [id number] Univers 07:04:00 11:06:00 Encounter Michael MORA 350.1.13.10 ity of [facility] 4.2.7.2.686 Morales as [id number] [address] 2023-02-22 2023-02-22 Office Christian [facility] 1.2.840.114 [id number] Univers 10:00:00 10:30:00 Visit Yanci COLEMAN 350.1.13.10 i ty [facility] [place] [id number] [facility] 085 [facility] 2023-02-22 2023-02-22 Outpatient R YANCI MICHAEL [facility] 10 [id number] Univers 10:00:00 10:00:00 YANCI MICHAEL i ty of [facility] 2023-02-22 2023-02-22 Telephone Jose Christopher [facility] 1.2.840.114 [id number] Univers 00:00:00 00:00:00 S HEALTH 350.1.13.10 it y of [place] [id number] [facility] [address] OFFICE BUILDING 2023-02-22 2023-02-22 Telephone Jose Christopher [facility] 1.2.840.114 [id number] Univers 00:00:00 00:00:00 S HEALTH 350.1.13.10 it y of [place] [id number] [facility] [address] OFFICE BUILDING 2023-02-19 2023-02-19 Orders Doctor DEE 1.2.840.114 [id number] Univers 00:00:00 00:00:00 Only Unassigned, MORGAN 350.1.13.10 ity of [place] [facility] 4.2.7.2.686 Morales as [phone] [facility] [address] 2023-02-18 2023-02-18 Telephone Abrol, UNIVERSIT 1.2.840.114 10 [id number] Univers 00:00:00 00:00:00 Robinder HEALTH 350.1.13.10 ity of [place] [id number] [address] 2023-02-18 2023-02-18 Telephone Abrol, UNIVERSIT 1.2.840.114 10 [id number] Univers 00:00:00 00:00:00 Robinder HEALTH 350.1.13.10 ity of [place] [id number] [address] 2023-02-18 2023-02-[address] [facility] 1.2.472.674 6375 [id number] Univers 00:00:00 00:00:00 Christiano COLEMAN 350.1.13.10 ity of [place].2.7.2.[place] [phone] Az dical [facility] [address] [facility] 2023-02-18 2023-02-18 Telephone Abrol, UNIVERSIT 1.2.840.114 10 [id number] Univers 00:00:00 00:00:00 Robinder HEALTH 350.1.13.10 ity of CL[place] [id number] [address] 2023-02-15 2023-02-15 Outpatient JOSE HARRIS [facility] 253 [id number] Univers 08:30:00 08:30:00 ity of [facility] 2023-02-09 2023-02-09 [facility] 1.2.840.114 [id number] Univers 14:30:00 23:59:00 Encounter [facility] HEALTH 350.1.13.10 it[place] of [place] 4.2.7.2.686 Morales as JIGNA?BLEA [phone] Az oj TINOC[place] 809 [facility][note 2] 2023-02-09 2023-02-09 Outpatient R [facility] [id number] Univers 14:45:00 16:09:28 BARRIE [facility] 2023-02-09 2023-02-09 Office [facility] 1.2.840.114 [id number] Univers 14:45:00 15:00:00 Visit [facility] 350.1.13.10 it y of [facility] 4.2.7.2.686 Morales as JIGNA?BLEA [phone] Az oj TINOCO 198 [facility][note 2] 2023-02-09 2023-02-09 Telephone [facility] 1.2.930.738 0115 [id number] Univers 00:00:00 00:00:00 Shiwan [place] 350.1.13.10 i ty of [place] 4.2.7.2.[place] [phone] Az roetala CHARLENE 085 [facility] 2023-02-01 2023-02-01 Outpatient R [facility] [id number] Univers 14:10:00 23:59:00 BARRIE [facility] 2023-02-01 2023-02-01 Office [facility] 1.2.840.114 [id number] Univers 13:45:00 14:00:00 Visit [facility] HEALTH 350.1.13.10 it y of [place] 4.2.7.2.686 Morales as JIGNA?BLEA [phone] Az oj TINOCO 198 [facility] [place][note 2] 2023-01-31 2023-02-01 Emergency X [facility] [id number] Univers 22:28:00 01:54:00 ARSALAN [facility] 2023-01-31 2023-02-01 Emergency [facility] 1.2.389.015 [id number] [id number] Univers 22:28:00 01:54:00 Arsalan COLEMAN 350.1.13.10 i ty [facility] 4.2.7.2.[place] CAMPUS [id number] [facility] [address] 2023-02-01 2023-02-01 Telephone DARIEN Maurice 1.2.840.114 1 [id number] Univers 00:00:00 00:00:00 Minorgisela MORA 350.1.13.10 ity of [facility] 4.2.7.2.686 Morales as [id number] [facility] [address] 2023-01-29 2023-01-29 Outpatient R PARTH MAURICE [facility] [id number] Univers 09:49:06 23:59:00 PARTH MAURICE [facility] 2023-01-28 2023-01-28 Outpatient R PARTH MAURICE [facility] [id number] Univers 15:20:00 15:30:35 PARTH MAURICE [facility] 2023-01-28 2023-01-[address] [facility] 1.2.840.114 [id number] [facility] 15:20:00 15:30:35 Visit Michael COLEMAN 350.1.13.10 ity of [facility] 4.2.7.2.[place] [id number] Az dical NAL 059 [facility] 2023-01-28 2023-01-[address] [facility] 1.2.356.495 8202 03899 [facility] 00:00:00 00:00:00 Yanci COLEMAN 350.1.13.10 i ty of [place] 4.2.7.2.[place] PROFESS[place] [id number] Az dical NAL 085 [facility] 2023-01-28 2023-01-[address] [facility] 1.2.840.114 [id number] [facility] Univers 00:00:00 00:00:00 [facility] 350.1.13.10 ity of [place] 4.2.7.2.[place] [phone] [facility] [address] OFFICE BUILDING 2023-01-28 2023-01-[address] [facility] 1.2.088.913 [id number] [id number] Univers 00:00:00 00:00:00 Yanci COLEMNA 350.1.13.10 i ty of [place] 4.2.7.2.686 [place] [facility] [id number] Az dical [facility] 085 [address] BUILDING 2023-01-28 2023-01-28 Orders Doctor DEE 1.2.840.114 [id number] Univers 00:00:00 00:00:00 Only Unassigned, MORGAN 350.1.13.10 ity of [place] [facility] 4.2.7.2.686 Morales as [phone] [place] [address] [address] 2023-01-20 2023-01-21 Emergency X SACHIN CARVAJAL [facility] ERT [id number] Univers 21:49:00 00:40:00 ity of [facility] 2023-01-20 2023-01-21 Emergency Sachin Carvajal [facility] 1.2.840.114 [id number] Univers 21:49:00 00:40:00 T JARED 350.1.13.10 i ty of [place] 4.2.7.2.686 [facility] s [place] [id number] [place] [address]39[address] 2023-01-18 2023-01-[address] [facility] SOR [id number] Univers 09:13:00 13:06:00 HANNAH ity of [facility] 2023-01-18 2023-01-[address] [facility] 1.2.840.114 104 [id number] Univers 09:13:00 13:06:00 Encounter Hannah COLEMAN 350.1.13.10 ity of [place] 4.2.7.2.[place] SURGICAL [id number] [facility] [address] 2023-01-18 2023-01-[address] [facility] 1.2.801.525 4005 84404 Univers 10:50:00 12:25:00 Hannah COLEMAN 350.1.13.10 i ty of [place] 4.2.7.2.[place] SURGICAL [id number] [facility] [address] 2023-01-18 2023-01-18 Orders Doctor DEE 1.2.840.114 [id number] Univers 00:00:00 00:00:00 Only Unassigned, MORGAN 350.1.13.10 ity of [place] [facility] 4.2.7.2.686 Morales as [id number] [address] 2023-01-15 2023-01-15 Trumpet Player Grisel, Wilmar Lab Main [facility] 1.2.8 40.114 [id number] Univers 08:30:00 08:45:00 Visit Sarbjit Kee 350.1.13.10 ity of [place] 4.2.7.2.686 [facility] [id number] Az dical NAL 353 [facility] 2023-01-15 2023-01-15 [facility] [id number] Univers 08:30:00 08:30:00 HANNAH simental of [facility] 2023-01-15 2023-01-15 Orders Doctor DEE 1.2.840.114 [id number] Univers 00:00:00 00:00:00 Only Unassigned, MORGAN 350.1.13.10 ity of [place] [facility] 4.2.7.2.686 Morales as [phone] [address] 2023-01-14 2023-01-[address] [facility] 1.2.706.696 3169 14789 Univers 00:00:00 00:00:00 Barrie S HEALTH 350.1.13.10 it y of [facility] 4.2.7.2.686 Morales as JIGNA?BLEA [id number] Az dical KNEY [address] MEDICAL OFFICE BUILDING 2023-01-13 2023-01-13 Office Lorenzo [facility] 1.2.245.315 1059 [id number] Univers 13:00:00 13:15:00 Visit Hannah CARPIO 350.1.13.10 it y of [place] 4.2.7.2.686 Morales as JIGNA?BLEA [id number] Az dical KNEY [address] MEDICAL OFFICE BUILDING 2023-01-13 2023-01-13 Outpatient R LORENZO [facility] [id number] Univers 13:00:00 13:00:00 HANNAH simental [facility] 2023-01-13 2023-01-13 Orders Doctor DEE 1.2.840.114 [id number] Univers 00:00:00 00:00:00 Only Unassigned, MORGAN 350.1.13.10 ity of [place] [facility] 4.2.7.2.686 Morales as [phone] [address] 2023-01-08 2023-01-[address] [facility] ERT [id number] Univers 14:55:00 17:08:00 SURY hola [facility] 2023-01-08 2023-01-[address] [facility] 1.2.560.044 7943 [id number] Univers 14:55:00 17:08:00 Sury S [place] 350.1.13.10 i ty of [place].2.7.2.[place] C[place] [id number] [address] 2023-01-08 2023-01-08 Orders Doctor DEE 1.2.840.114 [id number] Univers 00:00:00 00:00:00 Only Unassigned, MORGAN 350.1.13.10 ity of [place] [facility] 4.2.7.2.686 Morales as [id number] [address] 2023-01-08 2023-01-08 Telephone Christian [facility] 1.2.229.155 8550 92127 Univers 00:00:00 00:00:00 Shiwan [place] 350.1.13.10 i ty of [place] 4.2.7.2.[place] PROFESS[place] [phone] Az dicct NAL [address] [place] [address] 2023-01-05 2023-01-[address] [facility] 1.2.368.670 9743 [id number] Univers 00:00:00 00:00:00 Shiwan [place] 350.1.13.10 i ty of [place] 4.2.7.2.[place] PROFESS[place] [id number] Az dical NAL [address] [place] [address] 2022-12-28 2022-12-28 Telephone Cem [facility] 1.2.632.821 7187 [id number] Univers 00:00:00 00:00:00 Qiaandriy COLEMAN 350.1.13.10 ity of [place]2.7.2.[place] [id number] [address] 2022-12-21 2022-12-21 Outpatient R JOSE CHRISTOPHER [facility] 315 [id number] Univers 09:20:00 09:33:52 ity of [facility] 2022-12-21 2022-12-21 Office Ashwin Jose [facility] 1.2.840.114 10 [id number] Univers 09:20:00 09:33:52 Visit S HEALTH 350.1.13.10 it y of [place] 4.2.7.2.686 [place] [id number] [place] [address] [address] OFFICE BUILDING 2022-12-16 2022-12-16 Patient Doctor [facility] 1.2.840.114 [id number] Univers 00:00:00 00:00:00 Secure Msg Unassigned, RICONELSON 350.1.13.10 ity of [place].2.7.2.[place] [phone] [address] 2022-12-15 2022-12-15 Inpatient R JOSE CHRISTOPHER [facility] TYRONE 1045 [id number] Univers 08:30:00 08:30:00 ity of [facility] 2022-12-14 2022-12-[address] [facility] 1.2.818.613 2865 [id number] Univers 00:00:00 00:00:00 Nikiwan JARED 350.1.13.10 i ty of [place] 4.2.7.2.686 [place] [id number] [address] 2022-12-11 2022-12-11 Outpatient R CEM [facility] [id number] Univers 16:00:00 16:00:00 CHRISTIANO beckwithy o f [facility] 2022-12-10 2022-12-[address] [facility] 1.2.241.969 9475 15118 Univers 00:00:00 00:00:00 Christiano COLEMAN 350.1.13.10 ity [facility] 4.2.7.2.[place] [phone] [facility] NAL 059 [facility] 2022-12-10 2022-12-10 Orders Doctor PRICE 1.2.840.114 [id number] Univers 00:00:00 00:00:00 Only Unassigned, MORGAN 350.1.13.10 ity of [place] [facility] 4.2.7.2.686 Morales as [id number] [facility] [address] 2022-12-08 2022-12-08 Orders Doctor PRICE 1.2.840.114 [id number] Univers 00:00:00 00:00:00 Only Unassigned, MORGAN 350.1.13.10 ity of [place] [facility] 4.2.7.2.686 Morales as [phone] [address] 2022-12-06 2022-12-07 Emergency [facility] [id number] Univers 21:57:00 00:35:00 TYRON itliliana of [facility] 2022-12-06 2022-12-07 Emergency [facility] 1.2.757.360 9887 [id number] Univers 21:57:00 00:35:00 Tyron JARED 350.1.13.10 i ty of [place] 4.2.7.2.[place] [id number] [facility] [address] 2022-12-07 2022-12-[address] [facility] 1.2.474.033 2242 [id number] Univers 00:00:00 00:00:00 Yanci COLEMAN 350.1.13.10 i ty of [facility] 4.2.7.2.[place] PROF[place] [id number] [facility] 085 [facility] 2022-12-04 2022-12-[address] [facility] 1.2.359.078 1139 [id number] Univers 00:00:00 00:00:00 Christiano COLEMAN 350.1.13.10 ity of [facility] 4.2.7.2.686 [place] [phone] Az oj NAL 059 [facility] 2022-12-04 2022-12-[address] [facility] 1.2.088.165 5125 [id number] Univers 00:00:00 00:00:00 Christiano COLEMAN 350.1.13.10 ity of [facility] 4.2.7.2.[place] [id number] Az oj NAL 059 [facility] 2022-12-03 2022-12-03 [facility] 1.2.840.114 1 [id number] Univers 14:07:58 23:59:00 Encounter , Pankaj SPECIALTY 350.1.13.10 ity of [place] 4.2.7.2.686 [place] CENTER AT [id number] Az roetala KORTNEY 809 [facility] 2022-12-03 2022-12-03 Outpatient R [facility] 319 [id number] Univers 12:45:00 14:46:50 , PANKAJ itliliana [facility] 2022-12-03 2022-12-03 Office [facility] 1.2.840.114 10 [id number] Univers 12:45:00 14:46:50 Visit , Pankaj SPECIALTY 350.1.13.10 ity of C[place] 4.2.7.2.[place] CENTER AT [id number] Az roetala KORTNEY 198 [facility] 2022-12-02 2022-12-02 Outpatient R CEM [facility] [id number] Univers 07:36:17 23:59:00 CHRISTIANO simental o f [facility] 2022-11-26 2022-11-26 Outpatient R VIDYA [facility] [id number] Univers 13:00:00 13:22:38 ANJALI simental [facility] 2022-11-26 2022-11-26 Office BOB Wisdom 1.2.840.114 10 [id number] Univers 13:00:00 13:22:38 Visit Anjali Morales 350.1.13.10 it y of NATIONAL 4.2.7.2.686 Morales as BANK [phone] [facility] BLDG. [address] 2022-11-26 2022-11-26 Ancillary Wendy Rosario UNIVERSIT 1.2.84 0.114 [id number] Univers 11:15:00 11:17:49 Visit Dominick Jul[employer] Y 350.1 .13.10 ity of Fadumo Ortiz 4.2.7.2.686 [facility] [id number] [facility] BLDG. [address] 2022-11-23 2022-11-23 [facility] [id number] Univers 13:00:00 13:49:08 HANNAH ity of [facility] 2022-11-23 2022-11-23 Ancillary aNno Cook [facility] 1 .2.840.114 [id number] Univers 13:00:00 13:49:08 Visit Hannah [place] 350.1.13.10 ity of [facility] 4.2.7.2.[place] 634.3961018 Az dical NAL 179 [facility] 2022-11-20 2022-11-[address] [facility] 1.2.721.116 [id number] [id number] Univers 00:00:00 00:00:00 Yanci COLEMAN 350.1.13.10 i ty of [facility] 4.2.7.2.686 [place] [id number] Az dical NAL 085 [facility] 2022-11-19 2022-11-19 [facility] [id number] Univers 11:20:00 11:34:12 CHRISTIANO beckwithy o f [facility] 2022-11-19 2022-11-[address] [facility] 1.2.840.114 [id number] Univers 11:20:00 11:34:12 Visit Christiano COLEMAN 350.1.13.10 ity of [facility] 4.2.7.2.[place] 190.6734315 Az dical NAL 059 [facility] 2022-11-18 2022-11-18 Orders Doctor PRICE 1.2.840.114 [id number] Univers 00:00:00 00:00:00 Only Unassigned, MORGAN 350.1.13.10 [facility] 4.2.7.2.686 Morales as [id number] [address] 2022-11-17 2022-11-17 [facility] 1.2.205.097 2540 70900 Univers 14:11:57 23:59:00 Encounter Beena SPECIALTY 350.1.13.10 ity of Benjamin [facility] 4.2.7.2.[place] CENTER AT [id number] Az dical ANSHUY 809 [facility] 2022-11-17 2022-11-17 Office [facility] 1.2.840.114 [id number] [id number] Univers 13:20:00 14:40:18 Visit Beena SPECIALTY 350.1.13.10 ity of [place] CARE [place].2.7.2.[place] C[place] AT 142.8769693 Az dictala SHEETS 198 [facility] 2022-11-17 2022-11-17 [facility] 1.2.463.118 4146 [id number] Univers 12:58:08 14:10:00 Encounter Beena SPECIALTY 350.1.13.10 ity of [facility] 4.2.7.2.686 [place] CENTER AT [id number] Az dictala BRASHERY 809 [facility] 2022-11-17 2022-11-17 [facility] 1.2.255.289 1516 52167 Univers 12:58:02 14:10:00 Encounter Beena SPECIALTY 350.1.13.10 ity of [place] CARE 4.2.7.2.686 [place] C[place] AT [id number] Az dictala BRASHERY 809 [facility] 2022-11-17 2022-11-17 Outpatient R [facility] [id number] Univers 12:57:56 12:57:56 BEENA ity of [facility] 2022-11-17 2022-11-17 [facility] 1.2.044.228 7730 66333 Univers 12:57:56 12:57:56 Encounter Beena SPECIALTY 350.1.13.10 ity of [place] C[place] 4.2.7.2.[place] C[place] AT [id number] Az dical VICTORY 809 [facility] 2022-11-16 2022-11-16 Office Christian [facility] 1.2.840.114 [id number] 796 Univers 09:00:00 09:30:00 Visit Yanci COLEMAN 350.1.13.10 i ty of [place] 4.2.7.2.686 [place] [facility] [phone] Az oj NAL 085 [facility] 2022-11-16 2022-11-16 Outpatient R YANCI MICHAEL [facility] 10 [id number] Univers 09:00:00 09:00:00 YANCI MICHAEL i ty of [facility] 2022-11-16 2022-11-16 Orders Doctor DEE 1.2.840.114 [id number] Univers 00:00:00 00:00:00 Only Unassigned, MORGAN 350.1.13.10 ity of [place] [facility] 4.2.7.2.686 Morales as [id number] [facility] [address] 2022-11-12 2022-11-13 Emergency X Colleen VARMA [facility] [id number] Univers 21:44:00 00:14:00 ity of [facility] 2022-11-12 2022-11-13 Emergency Colleen Varma [facility] 1.2.840.114 10 [id number] Univers 21:44:00 00:14:00 Karen COLEMAN 350.1.13.10 i ty of [place] 4.2.7.2.686 [place] [id number] [facility] [address] 2022-11-03 2022-11-03 Trumpet Player [facility] UNIVERSIT 1.2.840.114 1 [id number] Univers 11:45:00 12:00:00 Visit Parrish Rosenberg Y HEALTH 350.1.13.10 ity of CLINICS 4.2.7.2.686 [place] [id number] [facility] [address] 2022-11-03 2022-11-03 Office Jakob Mcfarland UNIVERSIT 1.2.840. 114 [id number] Univers 10:00:00 10:30:00 Visit Sheng Vasquez Y HEALTH 350.1.13. 10 ity of CLINICS 4.2.7.2.[place] 171.0834959 [place] [address] 2022-11-03 2022-11-03 Outpatient R CHRISTINA [facility] [id number] Univers 10:00:00 10:00:00 SHENG [facility] 2022-11-03 2022-11-03 Telephone BOB Mcfarland 1.2.840.114 10 [id number] Univers 00:00:00 00:00:00 [facility] 350.1.13.10 ity of CLINICS 4.2.7.2.686 [place] 773.6509239 [place] [address] 2022-11-03 2022-11-03 Orders Doctor DEE 1.2.840.114 [id number] Univers 00:00:00 00:00:00 Only UnassignedMORGAN 350.1.13.10 ity of [place] [facility] 4.2.7.2.686 Morales as [id number] [facility] [address] 2022-11-02 2022-11-02 Telephone Christian [facility] 1.2.416.605 3193 [id number] Univers 00:00:00 00:00:00 Yanci COLEMAN 350.1.13.10 i ty of [place] 4.2.7.2.[place] PROFESS[place] 220.9901794 Az dical [facility] [address] [facility] 2022-10-29 2022-10-29 Emergency X MELVA MG [facility] ERT [id number] Univers 02:59:00 07:34:00 MG FRYE [facility] 2022-10-29 2022-10-29 Emergency Dalmedo, TRAUMA 1.2.840.114 [id number] Univers 02:59:00 07:34:00 [facility] 350.1.13.10 it y of 4[place]2.7.2.686 [place] [id number] [facility] [address] 2022-10-29 2022-10-29 Nurse Yong PRICE 1.2.840.114 [id number] Univers 00:00:00 00:00:00 Triage MORGAN Strauss 350.1.13.10 ity of [facility] 4.2.7.2.686 Morales as [id number] [facility] [address] 2022-10-28 2022-10-28 Patient Doctor DEE 1.2.840.114 [id number] Univers 00:00:00 00:00:00 Secure Msmasha UnassMORGAN mayo 350.1.13.10 ity of [place] [facility] 4.2.7.2.686 Morales as [id number] [facility] 019 Geraldine 2022-10-28 2022-10-28 Telephone BOB Mcfarland 1.2.840.114 10 [id number] Univers 00:00:00 00:00:00 Kangazra [facility] 350.1.13.10 ity of [facility] [place]2.[id number] [id number] Geraldine 2022-10-27 2022-10-27 Emergency X [facility]COE [facility] ERT [id number] Univers 19:47:00 21:40:00 PITA [facility] 2022-10-27 2022-10-[address] [facility] 1.2.142.566 [id number] Univers 19:47:00 21:40:00 Pita COLEMAN 350.1.13.10 ity [place] [id number] [place] 303924 Geraldine 2022-10-25 2022-10-25 Telephone DARIEN Mcfarland 1.2.167.563 [id number] Univers 00:00:00 00:00:00 Jakob DECKERY 350.1.13.10 i ty of [facility] 4.2.7.2.686 Morales as [id number] [facility] 093 Geraldine 2022-10-21 2022-10-[address] [facility] 1.2.350.789 [id number] Univers 00:00:00 00:00:00 Yanci COLEMAN 350.1.13.10 i ty [place] [facility] [phone] Az dical [facility] 085 [facility] 2022-10-20 2022-10-20 Emergency X SINGER [facility] ERT [id number] Univers 14:26:00 17:47:00 TYRON simental of [facility] 2022-10-20 2022-10-[address] [facility] 1.2.734.979 [id number] Univers 14:26:00 17:47:00 Tyron RICONELSON 350.1.13.10 i ty of [place] 4.2.7.2.686 [facility] [phone] [place] 303924 Geraldine 2022-10-20 2022-10-20 Orders Doctor DEE 1.2.840.114 [id number] Univers 00:00:00 00:00:00 Only Unassigned, MORGAN 350.1.13.10 ity of [place] 4.2.7.2.686 Morales as [id number] [address] 2022-10-12 2022-10-12 Nurse DEE Barth 1.2.840.114 [id number] Univers 00:00:00 00:00:00 Triage Jose Carlos Lozada MORGAN 350.1.13.10 it y of [facility] 4.2.7.2.686 [place]ales as [id number] [facility] 019 Geraldine 2022-10-11 2022-10-11 Patient Doctor DEE 1.2.840.114 [id number] Univers 00:00:00 00:00:00 Secure Msg Unassigned, MORGAN 350.1.13.10 ity of [place] [facility] 4.2.7.2.686 Morales as [id number] [address] 2022-10-08 2022-10-09 Emergency X [facility] ERT [id number] Univers 22:48:00 01:33:00 RUBEN beckwithy of [facility] 2022-10-08 2022-10-[address] [facility] 1.2.840.114 10 [id number] Univers 22:48:00 01:33:00 Ruben COLEMAN 350.1.13.10 ity of [place] 4.2.7.2.686 [facility] [id number] [address] 2022-10-09 2022-10-09 Telephone BOB Mcfarland 1.2.840.114 10 [id number] Univers 00:00:00 00:00:00 [facility] 350.1.13.10 ity of [place] [id number] [address] 2022-10-08 2022-10-08 Telephone Bartolo, [facility] 1.2.840.114 [id number] Univers 00:00:00 00:00:00 [facility] 350.1.13.10 ity of [place] [id number] [place] [address] [address] 2022-10-07 2022-10-07 Telephone Bartolo, [facility] 1.2.840.114 10 [id number] Univers 00:00:00 00:00:00 [facility] 350.1.13.10 it[place] [id number] [address] 2022-09-30 2022-09-30 Telephone [facility] 1.2.449.351 [id number] [id number] Univers 00:00:00 00:00:00 Yanci COLEMAN 350.1.13.10 i ty of [place] [id number] [place] 083325 [facility] 2022-09-24 2022-09-24 Outpatient R GERRY [facility] 127 [id number] Univers 15:30:00 15:30:00 , PANKAJ ity of [facility] 2022-09-21 2022-09-21 Orders Doctor DEE 1.2.840.114 [id number] Univers 00:00:00 00:00:00 Only Unassigned, MORGAN 350.1.13.10 ity of [place] [facility] 4.2.7.2.686 Morales as [id number] [facility] [address] 2022-09-15 2022-09-15 Office Jakob Mcfarland [facility] 1.2.840. 114 [id number] Univers 07:30:00 08:00:00 Visit Sheng Vasquez [facility] 350.1.13. 10 ity of CL[place] [id number] [place] [address] [address] 2022-09-152022-09-15 Outpatient R CHRISTINA [facility] [id number] Univers 07:30:00 07:30:00 SHENG ity [facility] 2022-08-26 2022-08-[address] [facility] 1.2.273.528 [id number] [id number] Univers 00:00:00 00:00:00 Shiwan [place] 350.1.13.10 i ty of [place] 151.3336696 [address] 2022-08-21 2022-08-[address] [facility] 1.2.561.891 [id number] [id number] Univers 00:00:00 00:00:00 Shiwan [place] 350.1.13.10 i ty of [place] 416.4212831 [address] 2022-08-20 2022-08-20 Orders Doctor DEE 1.2.840.114 [id number] Univers 00:00:00 00:00:00 Only Unassigned, MORGAN 350.1.13.10 ity of [place] [facility] 4.2.7.2.686 Morales as [id number] [address] 2022-08-19 2022-08-19 Outpatient R NICHOL [facility] [id number] Univers 09:00:00 09:54:18 [facility] ity [facility] 2022-08-19 2022-08-[address] [facility] 1.2.840.114 [id number] 87 Univers 09:00:00 09:54:18 Visit [facility] 350.1.13.10 ity of [place] AMAYA [id number] [place] 958172 Geraldine OFFICE BUILDING 2022-08-18 2022-08-18 Outpatient R YANCI MICHAEL [facility] 10 [id number] Univers 10:30:00 11:01:57 YANCI MICHAEL i ty of [facility] 2022-08-18 2022-08-[address] [facility] 1.2.840.114 [id number] Univers 10:30:00 11:01:57 Visit Yanci COLEMAN 350.1.13.10 i ty [facility] 4.2.7.[place] 640.0921626 Az dicct NAL [address] [place] [address] 2022-08-04 2022-08-04 Telephone [facility] 1.2.812.597 [id number] 5672 Univers 00:00:00 00:00:00 Yanci COLEMAN 350.1.13.10 i ty [facility] 4.2.7.2.[place] 209.7478159 Az dicct NAL [address] [place] [address] 2022-08-04 2022-08-04 Orders Doctor DEE 1.2.840.114 [id number] Univers 00:00:00 00:00:00 Only Unassigned, MORGAN 350.1.13.10 ity of [place] 4.2.7.2.686 Morales as [id number] [address] 2022-08-01 2022-08-01 Orders Doctor PRICE 1.2.840.114 [id number] Univers 00:00:00 00:00:00 Only Unassigned, MORGAN 350.1.13.10 ity of [facility] 4.2.7.2.686 [place]ales as [id number] [address] 2022-07-30 2022-07-30 Orders Doctor PRICE 1.2.840.114 [id number] Univers 00:00:00 00:00:00 Only Unassigned, MORGAN 350.1.13.10 ity of [facility] 4.2.7.2.686 [place] as [id number] [address] 2022-07-29 2022-07-29 Telephone [facility] 1.2.590.558 [id number] 7439 Univers 00:00:00 00:00:00 Yacni COLEMAN 350.1.13.10 i ty [facility] 4.2.7.[place] 549.4281454 Az dicct NAL [address] [place] [address] 2022-07-29 2022-07-29 Orders Doctor DEE 1.2.840.114 [id number] Univers 00:00:00 00:00:00 Only Unassigned, MORGAN 350.1.13.10 ity of [facility] 4.2.7.2.686 [place] as [id number] [address] 2022-07-28 2022-07-28 Telephone Christian [facility] 1.2.689.924 [id number] 5200 Univers 00:00:00 00:00:00 Yanci COLEMAN 350.1.13.10 i ty of [place] 4[place] 350.0789780 [address] 2022-07-21 2022-07-21 Orders Doctor DEE 1.2.840.114 [id number] 75 Univers 00:00:00 00:00:00 Only Unassigned, MORGAN 350.1.13.10 ity of [place] 4.2.7.2.686 Morales as [id number] [address] 2022-07-16 2022-07-16 Adriana Mac [facility] 1.2.840.114 [id number] Univers 00:00:00 00:00:00 [facility] 350.1.13.10 ity of [facility] 4.[place].7.2.[place] 185.0670073 [address] 2022-07-16 2022-07-16 Hans Michael [facility] 1.2.966.925 [id number] 5897 Univers 00:00:00 00:00:00 Yanci COLEMAN 350.1.13.10 i ty of [place] [id number] [address] 2022-07-16 2022-07-16 Orders Doctor DEE 1.2.840.114 [id number] 204 Univers 00:00:00 00:00:00 Only Unassigned, MORGAN 350.1.13.10 ity of [facility] 4.2.7.2.686 [place] as 248.6835144 [address] 2022-07-12 2022-07-12 Emergency X TAMY [facility] ERT [id number] Univers 20:10:00 22:24:00 ROBERT ity of [facility] 2022-07-12 2022-07-12 [facility] 1.2.590.400 [id number] 2248 Univers 20:10:00 22:24:00 Robert GÓMEZNELSON 350.1.13.10 ity of [place] [id number] [place] 303924 Gerald[place] 2022-07-07 2022-07-07 Telephone Christian [facility] 1.2.150.450 4033 [id number] Univers 00:00:00 00:00:00 Danishaditi COLEMAN 350.1.13.10 i ty of [place] 152.3304775 Az dical NAL 5 [facility] 2022-06-29 2022-06-29 Outpatient ARMOND, [facility] [id number] SLE 00:00:00 00:00:00 JUNIOR 2022-06-24 2022-06-24 Orders Doctor DEE 1.2.840.114 [id number] Univers 00:00:00 00:00:00 Only Unassigned, MORGAN 350.1.13.10 ity of [facility] 4.2.7.2.686 [place] as 244.3036047 [address] 2022-06-22 2022-06-22 Outpatient R YANCI MICHAEL [facility] 10 [id number] Univers 09:00:00 09:40:28 YANCI MICHAEL i ty of [facility] 2022-06-22 2022-06-22 Office Christian [facility] 1.2.840.114 [id number] 42 Univers 09:00:00 09:40:28 Visit Yanci COLEMAN 350.1.13.10 i ty of [place] [id number] Az dical NAL [address] [place] [address] 2022-06-22 2022-06-22 Orders Doctor DEE 1.2.840.114 [id number] Univers 00:00:00 00:00:00 Only Unassigned, MORGAN 350.1.13.10 ity of [place] 4.2.7.2.686 [place] as [id number] [address] 2022-06-20 2022-06-[address] [facility] ERT [id number] Univers 22:02:00 04:05:00 MEGHAN ity [facility] 2022-06-20 2022-06-[address] [facility] 1.2.810.303 [id number] Univers 22:02:00 04:05:00 Meghan GÓMEZNELSON 350.1.13.10 i ty of [place] [id number] [address] 2022-06-18 2022-06-18 Orders Doctor DEE 1.2.840.114 [id number] Univers 00:00:00 00:00:00 Only Unassigned, MORGAN 350.1.13.10 ity of [facility] 4.2.7.2.686 Morales [id number] [address] 2022-06-16 2022-06-16 Emergency [address]HAWNCODYNAVARROMARLYSCHRISTUS [facility] ERT [id number] Univers 15:04:00 22:47:00 FOLUSHO ity [facility] 2022-06-16 2022-06-16 Emergency Ibikunle, TRAUMA 1.2.840.114 [id number] Univers 15:04:00 22:47:00 [facility] 350.1.13.10 ity 4.2.7.2.686 [place] [id number] [facility] 014 [address] 2022-05-28 2022-05-29 Emergency X CHELLENISAANTHONY [facility] ERT [id number] Univers 19:34:00 02:25:00 ROBERT ity [facility] 2022-05-28 2022-05-29 Emergency Tyron Nuñez [facility] 1.2.840. 114 [id number] Univers 19:34:00 02:25:00 Robert Gloria 350.1.13.10 it[facility] 4.[place].7.2.[place] 696.5608000 [address] 2022-04-08 2022-04-[address] [facility] [id number] [facility] 13:00:00 14:00:00 Visit [facility] 2022-04-08 2022-04-[address] [facility] [id number] [facility] 13:00:00 14:00:00 Visit [facility] 2022-04-08 2022-04-08 Outpatient ARMOND [facility] [id number] [facility] 11:58:43 11:58:[address] [facility] 2020-06-11 2020-06-11 Telephone [facility] 1.2.779.891 [id number] 00:00:00 00:00:00 Felix SPECIALTY 350.1.13.10 [facility] 4.2.7.2.686 [place] [id number] 160 2020-06-11 2020-06-11 Telephone [facility] 1.2.633.919 [id number] 4860 Univers 00:00:00 00:00:00 Felix SPECIALTY 350.1.13.10 ity of [facility] 4.2.7.2.686 Morales as [place] [id number] [facility] 160 [place] 2020-03-13 2020-03-13 Refill [facility] 1.2.840.114 [id number] 91 00:00:00 00:00:00 Felix SPECIALTY 350.1.13.10 [facility] 4.2.7.2.686 [place] [id number] 401 2020-03-13 2020-03-13 Refill [facility] 1.2.840.114 [id number] 91 Univers 00:00:00 00:00:00 Felix SPECIALTY 350.1.13.10 ity of [facility] 4.2.7.2.686 Morales as [place] [id number] [facility] 401 [address] 2020-03-11 2020-03-11 Refill [facility] 1.2.840.114 [id number] 30 00:00:00 00:00:00 Felix SPECIALTY 350.1.13.10 [facility] 4.2.7.2.686 [place] [id number] 401 2020-03-11 2020-03-11 Telephone [facility] 1.2.487.309 [id number] 00:00:00 00:00:00 Felix SPECIALTY 350.1.13.10 [facility] 4.2.7.2.686 [place] [id number] [facility][note 2] 2020-03-11 2020-03-11 Refill [facility] 1.2.840.114 [id number] Univers 00:00:00 00:00:00 Felix SPECIALTY 350.1.13.10 ity of [facility] 4.2.7.2.686 [place]ales as [place] [id number] [address] 2020-03-11 2020-03-11 Telephone [facility] 1.2.171.635 [id number] 7886 Univers 00:00:00 00:00:00 Felix SPECIALTY 350.1.13.10 ity of [facility] 4.2.7.2.686 [place]ales as [place] [id number] [address] 2020-03-06 2020-03-06 Telephone [facility] 1.2.149.597 [id number] [id number] 00:00:00 00:00:00 Felix SPECIALTY 350.1.13.10 [facility] 4.2.7.2.686 [place] [id number] [facility][note 2] 2020-03-06 2020-03-06 Telephone [facility] 1.2.377.958 [id number] [facility] 00:00:00 00:00:00 Felix SPECIALTY 350.1.13.10 ity of [facility] 4.2.7.2.686 [place]ales as [place] [id number] [address] 2020-03-04 2020-03-04 [facility] [place] 1.2.840.114 [id number] 54 00:00:00 00:00:00 Felix SPECIALTY 350.1.13.10 Rl BAY 4.2.7.2.686 [place] [id number] [facility][note 2] 2020-03-04 2020-03-04 Refill [place], [facility] 1.2.840.114 [id number] Univers 00:00:00 00:00:00 Felix SPECIALTY 350.1.13.10 ity of [facility] 4.2.7.2.686 Morales as [place] [id number] [address] 2019-11-07 2019-11-07 [facility] [place] 1.2.840.114 [id number] 83 00:00:00 00:00:00 Felix SPECIALTY 350.1.13.10 [facility] 4.2.7.2.686 [place] [id number] 401 2019-11-07 2019-11-[address] [facility] 1.2.840.114 [id number] 83 Univers 00:00:00 00:00:00 Felix SPECIALTY 350.1.13.10 ity of [facility] 4.2.7.2.686 [place]ales as [place] 110.1657202 [address] 2019-10-23 2019-10-23 Telephone [facility] 1.2.742.359 [id number] 7946 00:00:00 00:00:00 Felix SPECIALTY 350.1.13.10 [facility] 4.2.7.2.686 [place] [id number] 401 2019-10-23 2019-10-23 [facility] 1.2.865.781 [id number] 7946 Univers 00:00:00 00:00:00 Felix SPECIALTY 350.1.13.10 ity of [facility] 4.2.7.2.686 [place]ales as [place] [id number] [address] 2019-10-22 2019-10-22 Refill [facility] 1.2.840.114 [id number] 87 00:00:00 00:00:00 Felix SPECIALTY 350.1.13.10 [facility] 4.2.7.2.686 [place] [id number] 401 2019-10-22 2019-10-22 Refill [facility] 1.2.840.114 [id number] 87 Univers 00:00:00 00:00:00 Felix SPECIALTY 350.1.13.10 ity of [facility] 4.2.7.2.686 Morales as [place] [id number] [address] 2019-09-06 2019-09-06 Telephone [facility] 1.2.886.048 [id number] 00:00:00 00:00:00 Felix SPECIALTY 350.1.13.10 [facility] 4.2.7.2.686 [place] [id number] 401 2019-09-06 2019-09-06 Telephone [facility] 1.2.902.157 [id number] 8654 Univers 00:00:00 00:00:00 Felix SPECIALTY 350.1.13.10 ity of [facility] 4.2.7.2.686 [place]ales as [place] [id number] [address] 2019-08-14 2019-08-14 Telephone [facility] 1.2.702.959 [id number] [id number] 00:00:00 00:00:00 Felix SPECIALTY 350.1.13.10 [facility] 4.2.7.2.686 [place] [id number] 401 2019-08-14 2019-08-14 Telephone [facility] 1.2.353.385 [id number] [id number] [facility] 00:00:00 00:00:00 Felix SPECIALTY 350.1.13.10 ity of [facility] 4.2.7.2.686 Morales as [place] [id number] [address] 2019-08-03 2019-08-03 Telephone [facility] 1.2.349.765 [id number] 8343 00:00:00 00:00:00 Felix SPECIALTY 350.1.13.10 [facility] 4.2.7.2.686 [place] [id number] [facility][note 2] 2019-08-03 2019-08-03 Telephone [facility] 1.2.198.556 [id number] 8343 [facility] 00:00:00 00:00:00 Felix SPECIALTY 350.1.13.10 ity of [facility] 4.2.7.2.686 Morales as [place] [id number] [address] 2019-07-31 2019-07-31 Telephone [facility] 1.2.967.559 [id number] 00:00:00 00:00:00 Felix SPECIALTY 350.1.13.10 [facility] 4.2.7.2.686 [place] [id number] [facility][note 2] 2019-07-31 2019-07-31 Telephone [facility] 1.2.305.693 [id number] [facility] 00:00:00 00:00:00 Felix SPECIALTY 350.1.13.10 ity of [facility] 4.2.7.2.686 Morales as [place] [id number] [address] 2019-03-27 2019-03-27 [facility] 1.2.840.114 [id number] 00:00:00 00:00:00 Steve SPECIALTY 350.1.13.10 [facility] 4.2.7.2.686 [place] [id number] [facility] 2019-03-27 2019-03-[address] [facility] 1.2.840.114 [id number] 88 00:00:00 00:00:00 Felix SPECIALTY 350.1.13.10 [facility] 4.2.7.2.686 [place] [id number] [facility][note 2] 2019-03-27 2019-03-[address] [facility] 1.2.840.114 [id number] Univers 00:00:00 00:00:00 Steve SPECIALTY 350.1.13.10 ity of [facility] [place].2.7.2.[place] [id number] [address] 2019-03-27 2019-03-[address] [facility] 1.2.840.114 [id number] 88 Univers 00:00:00 00:00:00 Felix SPECIALTY 350.1.13.10 ity of [facility] 4.2.7.2.686 Morales as [place] [id number] [address] 2019-03-23 2019-03-[address] [facility] 1.2.840.114 [id number] 00:00:00 00:00:00 Zana M SPECIALTY 350.1.13.10 [place] 4.2.7.2.686 [place] [id number] [facility] 2019-03-23 2019-03-[address] [facility] 1.2.840.114 [id number] Univers 00:00:00 00:00:00 Zana M SPECIALTY 350.1.13.10 ity of [place] 4.2.7.2.[place] 398.0727550 [address] 2019-03-22 2019-03-[address] [facility] 1.2.840.114 [id number] 102 00:00:00 00:00:00 Steve SPECIALTY 350.1.13.10 [facility] 4.2.7.2.686 [place] [id number] [facility] 2019-03-22 2019-03-[address] [facility] 1.2.840.114 [id number] 102 Univers 00:00:00 00:00:00 Steve SPECIALTY 350.1.13.10 ity of [facility] 4.2.7.2.[place] [id number] [address] 2019-03-13 2019-03-13 Telephone [facility] 1.2.215.387 [id number] 00:00:00 00:00:00 Felix SPECIALTY 350.1.13.10 [facility] 4.2.7.2.686 [place] [id number] 401 2019-03-13 2019-03-13 Telephone [facility] 1.2.418.188 [id number] 6717 Univers 00:00:00 00:00:00 Felix SPECIALTY 350.1.13.10 ity of [facility] 4.2.7.2.686 Morales as [place] [id number] [address] 2019-03-06 2019-03-06 Telephone [facility] 1.2.273.264 [id number] 9621 00:00:00 00:00:00 Felix SPECIALTY 350.1.13.10 [facility] 4.2.7.2.686 [place] [id number] [facility][note 2] 2019-03-06 2019-03-06 Telephone [facility] 1.2.194.999 [id number] [facility] 00:00:00 00:00:00 Felix SPECIALTY 350.1.13.10 ity of [facility] 4.2.7.2.686 Morales as [place] [id number] [address] 2019-03-02 2019-03-02 [facility]phone [facility] 1.2.840.114 [id number] [facility] 00:00:00 00:00:00 Steve SPECIALTY 350.1.13.10 ity of [facility] 4.2.7.2.[place] 227.4740510 [address] 2019-03-02 2019-03-02 Telephone [facility] 1.2.809.295 [id number] 0622 Univers 00:00:00 00:00:00 Felix SPECIALTY 350.1.13.10 ity of [facility] 4.2.7.2.686 Morales as [place] [id number] [address] 2019-03-01 2019-03-01 Office [facility] 1.2.840.114 [id number] 10:54:40 12:12:56 Visit Felix SPECIALTY 350.1.13.10 [facility] 4.2.7.2.686 [place] [id number] [facility][note 2] 2019-03-01 2019-03-01 Office Jethro [facility] 1.2.840.[id number] [place] [address] 10:54:40 12:12:56 Visit Felix SPECIALTY 350.1.13.10 ity of [facility] 4.2.7.2.686 Morales as [place] [id number] [address] 2019-02-23 2019-02-23 Nurse Nurse, Namrata Moyer [facility] 1.2.840.114 [id number] [facility] 10:22:25 10:52:25 Visit Felix Morelos SPECIALTY 350.1 .13.10 ity of [place] 4.2.7.2.[place] [id number] [address] 2019-02-22 2019-02-22 Telephone Jethro [facility] 1.2.121.760 [id number] Univers 00:00:00 00:00:00 Felix SPECIALTY 350.1.13.10 ity of [facility] 4.2.7.2.686 Morales as [place] [id number] [address] 2019-02-21 2019-02-21 Telephone Donna [facility] 1.2.840.114 [id number] [facility] 00:00:00 00:00:00 Zana Antonio SPECIALTY 350.1.13.10 ity of [place] 4.2.7.2.[place] [id number] [address] 2019-02-13 2019-02-13 Adriana Mac [facility] 1.2.840.114 [id number] [facility] 00:00:00 00:00:00 Steve SPECIALTY 350.1.13.10 [facility] [place] 4.2.7.2.[place] [id number] [address] 2018-03-08 2018-03-08 Office Jethro [facility] 1.2.840.114 [id number] [facility] 13:45:32 16:04:10 Visit Felix SPECIALTY 350.1.13.10 ity of [facility] 4.2.7.2.686 Morales as [place] [id number] [facility] [address] 2017-06-21 2017-06-21 Emergency ER NEGIN RUST [facility] [id number] [place] 14:06:00 18:01:00 -[id number] [facility] 2017-03-09 2017-03-09 Emergency ER DAWSON, [facility] [id number] [place] 13:59:00 16:36:00 BOB -[id number] [facility] 2016-07-13 2016-07-13 Emergency ER GLORIA, [facility] [id number] 96 [place] 18:32:00 21:47:00 CLEMENT -[id number] [facility] Results Test Description Test Time Test Comments Results Result Comments Source CBC WITH DIFF 2023-03-20 05:03:57 Test Item Value Reference Range Interpretation Comme nts WBC (test code = 6690-2) 13.69 See_Comment H [A utomated message] The system which [employer] nerated this result transmit rosanne reference range: 4.20 - 1 0.70 10*3/?L. The reference r genaro was not used to interpr et this result as normal/abnor mal. RBC (test code = 789-8) 5.14 See_Comment [Au tomated message] The system which [employer] nerated this result transmit rosanne reference range: 4.26 - 5 .52 10*6/?L. The reference r genaro was not used to interpr et this result as normal/abnor mal. HGB (test code = 718-7) 16.6 g/dL 12.2-16.4 H HCT (test code = 4544-3) 45.8 % 38.4-49.3 MCV (test code = 787-2) 89.1 fL 81.7-95.6 MCH (test code = 785-6) 32.3 pg 26.1-32.7 MCHC (test code = 786-4) 36.2 g/dL 31.2-35.0 H RDW-SD (test code = 01789-1) 39.5 fL 38.5-51.6 RDW-CV (test code = 788-0) 12.0 % 12.1-15.4 L PLT (test code = 777-3) 500 See_Comment H [Au tomated message] The system which ge nerated this result transmit rosanne reference range: 150 - 32 8 10*3/?L. The reference range was not used to interpret th is result as normal/abnormal . MPV (test code = 31382-9) 8.6 fL 9.8-13.0 L NRBC/100 WBC (test code = 0.0 See_Comment [ Automated message] The [id number]) system which ge nerated this result transmit rosanne reference range: 0.0 - 10 .0 /100 WBCs. The reference r genaro was not used to interpr et this result as normal/abnor mal. NRBC x10^3 (test code = See_Comment [Au tomated message] The [id number]) system which ge nerated this result transmit rosanne reference range: 10*3/?L. The reference range was not u sed to interpret this result as normal/abnormal . GRAN MAT (NEUT) % (test code 53.5 % = 770-8) IMM GRAN % (test code = 0.70 % [id number]) LYMPH % (test code = 736-9) 34.6 % MONO % (test code = 5905-5) 11.0 % EOS % (test code = 713-8) 0.0 % BASO % (test code = 706-2) 0.2 % GRAN MAT x10^3(ANC) (test 7.34 10*3/uL 1.99-6.95 H code = [id number]) IMM GRAN x10^3 (test code = 0.09 10*3/uL 0.00-0.06 H [id number]) LYMPH x10^3 (test code = 4.73 10*3/uL 1.09-3.23 H 731-0) MONO x10^3 (test code = 1.50 10*3/uL 0.36-1.02 H 742-7) EOS x10^3 (test code = 0.06-0.53 L 711-2) BASO x10^3 (test code = 0.03 10*3/uL 0.01-0.09 704-7) HJ BODIES (test code = Present A 7793-3) SIDEROTIC GRAN (test code = Suggestive of A 7795-8) REACT LYMPHS (test code = Rare [id number]) Lab Interpretation (test Abnormal code = 07324-2) [facility] Test Item Value Reference Range Interpretation Comments LIPASE (test code = [id number]) 70 U/L 0-220 Lab Interpretation (test code = Normal 88585-2) [facility] (28056)2023-03-20 04:38:49 Test Item Value Reference Range Interpretation Comments NA (test code = 138 mmol/L 135-145 2626529892) K (test code = 3.5 mmol/L 3.5-5.0 7463728492) CL (test code = 101 mmol/L 98-108 8070735087) CO2 TOTAL (test code = 27 mmol/L 23-31 5685939452) AGAP (test code = 10 2-16 9028693531) BUN (test code = 12 mg/dL 7-23 7977443502) GLUCOSE (test code = 123 mg/dL 70-110 H 1217971394) CREATININE (test code = 0.80 mg/dL 0.60-1.25 4777470628) TOTAL BILI (test code = 0.8 mg/dL 0.1-1.1 5789414577) CALCIUM (test code = 9.8 mg/dL 8.6-10.6 6842299080) T PROTEIN (test code = 7.3 g/dL 6.3-8.2 9581228922) ALBUMIN (test code = 4.5 g/dL 3.5-5.0 2276885781) ALK PHOS (test code = 111 U/L 34-122 7593557816) ALTv (test code = 19 U/L 5-50 1742-6) AST(SGOT) (test code = 23 U/L 13-40 4291507728) eGFR (test code = 124.5 mL/min/1.73m2 4553168824) JAMAL (test code = JAMAL) Association of [...] tests). Lab Interpretation Abnormal (test code = 01254-3) [facility] WITH [id number] 00:39:04 Test Item Value Reference Range Interpretation Comments WBC (test code = 16.24 See_Comment H [Automated 1406-2) message] The sy stem which generated this result transmitted reference range : 4.20 - 10.70 10*3/?L. The reference range was not used to interpret this result as normal/abnormal . RBC (test code = 5.34 See_Comment [Automated 638-8) message] The sy stem which generated this result transmitted reference range : 4.26 - 5.52 10*6/?L. The reference range was not used to interpret this result as normal/abnormal . HGB (test code = 17.3 g/dL 12.2-16.4 H 718-7) HCT (test code = 47.6 % 38.4-49.3 4544-3) MCV (test code = 89.1 fL 81.7-95.6 787-2) MCH (test code = 32.4 pg 26.1-32.7 785-6) MCHC (test code = 36.3 g/dL 31.2-35.0 H 786-4) RDW-SD (test code = 39.5 fL 38.5-51.6 87916-9) RDW-CV (test code = 12.1 % 12.1-15.4 788-0) PLT (test code = 533 See_Comment H [Automated 777-3) message] The sy stem which generated this result transmitted reference range : 150 - 328 10*3/ ?L. The reference r genaro was not used to interpret this result as normal/abnormal . MPV (test code = 8.9 fL 9.8-13.0 L 90660-1) NRBC/100 WBC (test 0.0 See_Comment [Automat ed code = 3597939021) message] The system which generated this result transmitted reference range : 0.0 - 10.0 /100 WBCs. The refer ence range was not u sed to interpret th is result as normal/abnormal . NRBC x10^3 (test code See_Comment [Auto mated = 1607286812) message] The s ystem which generated this result transmitted reference range : 10*3/?L. The reference range was not used to interpret this result as normal/abnormal . GRAN MAT (NEUT) % 47.4 % (test code = 770-8) IMM GRAN % (test code 0.70 % = 6832658395) LYMPH % (test code = 43.5 % 736-9) MONO % (test code = 8.1 % 5905-5) EOS % (test code = 0.0 % 713-8) BASO % (test code = 0.3 % 706-2) GRAN MAT x10^3(ANC) 7.69 10*3/uL 1.99-6.95 H (test code = 0623553108) IMM GRAN x10^3 (test 0.12 10*3/uL 0.00-0.06 H code = 0924155634) LYMPH x10^3 (test code 7.07 10*3/uL 1.09-3.23 H = 731-0) MONO x10^3 (test code 1.31 10*3/uL 0.36-1.02 H = 742-7) EOS x10^3 (test code = 0.06-0.53 L 711-2) BASO x10^3 (test code 0.05 10*3/uL 0.01-0.09 = 704-7) Lab Interpretation Abnormal (test code = 27524-8) [facility] METABOLIC PANEL ([id number])2023-03-10 00:18:33 Test Item Value Reference Range Interpretation Comments NA (test code = 141 mmol/L 135-145 0278796182) K (test code = 3.8 mmol/L 3.5-5.0 8025905624) CL (test code = 105 mmol/L 98-108 9686134584) CO2 TOTAL (test code = 26 mmol/L 23-31 5841745001) AGAP (test code = 10 2-16 2795948167) BUN (test code = 15 mg/dL 7-23 6499860220) GLUCOSE (test code = 101 mg/dL 70-110 4719580338) CREATININE (test code = 0.69 mg/dL 0.60-1.25 6161800493) TOTAL BILI (test code = 0.8 mg/dL 0.1-1.2 7569162630) CALCIUM (test code = 9.5 mg/dL 8.6-10.6 7846056234) T PROTEIN (test code = 8.3 g/dL 6.3-8.2 H 2292030128) ALBUMIN (test code = 4.9 g/dL 3.5-5.0 7274615359) ALK PHOS (test code = 110 U/L 34-122 0557532178) ALTv (test code = 23 U/L 5-50 1742-6) AST(SGOT) (test code = 33 U/L 13-40 3990232736) eGFR (test code = 147.7 mL/min/1.73m2 0376289410) JAMAL (test code = JAMAL) Association of [...] tests). Lab Interpretation Abnormal (test code = 25478-2) [id number] 23:57:46 Test Item Value Reference Range Interpretation Comments NT-proBNP (test code = 28704-5) <=125 Lab Interpretation (test code = Normal 11931-0) [facility] [id number] 23:56:50 Test Item Value Reference Range Interpretation Comments TROPONIN I (test code = 0.007 ng/mL <=0.034 5158832227) JAMAL (test code = JAMAL) Reference (Normal) [...] biotin. Lab Interpretation Normal (test code = 30715-9) [facility]. METABOLIC PANEL ([id number])2023-03-03 23:45:54 Test Item Value Reference Range Interpretation Comments NA (test code = 142 mmol/L 135-145 9909213333) K (test code = 3.4 mmol/L 3.5-5.0 L 0790205629) CL (test code = 102 mmol/L 98-108 7408000682) CO2 TOTAL (test code = 25 mmol/L 23-31 5262722608) AGAP (test code = 15 2-16 2926096444) BUN (test code = 14 mg/dL 7-23 1076694567) GLUCOSE (test code = 119 mg/dL 70-110 H 6585181565) CREATININE (test code = 0.79 mg/dL 0.60-1.25 3547943011) TOTAL BILI (test code = 1.0 mg/dL 0.1-1.8 1756624219) CALCIUM (test code = 9.5 mg/dL 8.6-10.6 2358558396) T PROTEIN (test code = 8.1 g/dL 6.3-8.2 7300689346) ALBUMIN (test code = 4.8 g/dL 3.5-5.0 6520285571) ALK PHOS (test code = 106 U/L 34-122 3763893841) ALTv (test code = 21 U/L 5-50 1742-6) AST(SGOT) (test code = 44 U/L 13-40 H 6269037000) eGFR (test code = 126.4 mL/min/1.73m2 3542431078) JAMAL (test code = JAMAL) Association of [...] tests). Lab Interpretation Abnormal (test code = 43126-6) [facility] WITH [id number] 06:35:36 Test Item Value Reference Range Interpretation Comments WBC (test code = 6690-2) 13.74 See_Comment H [A utomated message] The system [employer] generated this result transmit rosanne reference range : 4.20 - 10.70 10*3/?L. The reference range was not used to interpret this result as normal/abnormal . RBC (test code = 789-8) 5.01 See_Comment [Au tomated message] The system [employer] generated this result transmit rosanne reference range [...] RDW-SD (test code = 40.8 fL 38.5-51.6 07817-2) RDW-CV (test code = 12.3 % 12.1-15.4 788-0) PLT (test code = 777-3) 510 See_Comment H [Au tomated message] The system [facility] generated this result transmit rosanne reference range : 150 - 328 10*3/?L. The reference range was not used to interpret this result as normal/abnormal . MPV (test code = 9.2 fL 9.8-13.0 L 13693-3) NRBC/100 WBC (test code 0.0 See_Comment [Au tomated message] = 4222432455) The system [facility] generated this result transmit rosanne reference range : 0.0 - 10.0 /100 WBC s. The reference r genaro was not used to interpret this result as normal/abnormal . NRBC x10^3 (test code = See_Comment [Au tomated message] 9743168324) The system [facility] generated this result transmit rosanne reference range : 10*3/?L. The reference range was not used to interpret this result as normal/abnormal . SEG % (test code = 40 % 33-76 93384-3) LYMPH % (test code = 51 % 14-54 50698-5) MONO % (test code = 9 % 0-4 H 13118-6) PLT ESTIMATE (test code Increased Normal A = 9317-9) GIANT PLATELETS (test Present See_Comment A [Auto mated message] code = 5908-9) The system [facility] generated this result transmit rosanne reference range : (none). The reference range was not used to interpret this result as normal/abnormal . Lab Interpretation (test Abnormal code = 64166-3) [facility] [id number] 06:11:22 Test Item Value Reference Range Interpretation Comments TROPONIN I (test code = 0.002 ng/mL <=0.034 3559910628) JAMAL (test code = JAMAL) Reference (Normal) [...] biotin. Lab Interpretation Normal (test code = 54346-2) [facility] METABOLIC PANEL ([id number])2023-02-01 06:00:02 Test Item Value Reference Range Interpretation Comments NA (test code = 141 mmol/L 135-145 4819188629) K (test code = 4.0 mmol/L 3.5-5.0 7358239940) CL (test code = 103 mmol/L 98-108 9733788812) CO2 TOTAL (test code 27 mmol/L 23-31 = 0239217680) AGAP (test code = 11 2-16 7769819184) BUN (test code = 15 mg/dL 7-23 6602566415) GLUCOSE (test code = 93 mg/dL 70-110 2795297555) CREATININE (test code 0.91 mg/dL 0.60-1.25 = 4021963027) TOTAL BILI (test code 0.8 mg/dL 0.1-1.1 = 4300347926) CALCIUM (test code = 9.8 mg/dL 8.6-10.6 4541810871) T PROTEIN (test code 7.3 g/dL 6.3-8.2 = 0366043557) ALBUMIN (test code = 4.6 g/dL 3.5-5.0 4780241187) ALK PHOS (test code = 117 U/L 34-122 7903327596) ALTv (test code = 19 U/L 5-50 1742-6) AST(SGOT) (test code 22 U/L 13-40 = 6487985170) eGFR (test code = 107.3 mL/min/1.73m2 1928320150) JAMAL (test code = JAMAL) Association of [...] or urine or abnormalities in imaging tests). [facility] GLUCOSE (AUTOMATED)2023-01-18 14:52:41 Test Item Value Reference Range Interpretation Comments POCT GLU (test code = 1196664219) 110 mg/dL 70-110 Lab Interpretation (test code = Normal 69981-1) [facility] GLUCOSE (AUTOMATED)2023-01-18 14:52:41 Test Item Value Reference Range Interpretation Comments POCT GLU (test code = 5908905565) 110 mg/dL 70-110 Lab Interpretation (test code = Normal 51451-4) [facility] WITH [id number] 15:02:31 Test Item Value Reference Range Interpretation Comments WBC (test code = 11.06 See_Comment H [Automated 7890-2) message] The system which generated this result transmit rosanne reference range : 4.20 - 10.70 10*3/?L. The reference range was not used to interpret this result as normal/abnormal . RBC (test code = 5.24 See_Comment [Automated 169-8) message] The system which generated this result [...] RDW-SD (test code = 42.2 fL 38.5-51.6 87276-1) RDW-CV (test code = 12.5 % 12.1-15.4 788-0) PLT (test code = 510 See_Comment H [Automated 777-3) message] The system which generated this result transmit rosanne reference range : 150 - 328 10*3/ ?L. The reference range was not u sed to interpret th is result as normal/abnormal . MPV (test code = 8.8 fL 9.8-13.0 L 81632-2) NRBC/100 WBC (test 0.0 See_Comment [Automat ed code = 8493390963) message] The system which generated this result transmit rosanne reference range : 0.0 - 10.0 /100 WBCs. The reference range was not used to interpret this result as normal/abnormal . NRBC x10^3 (test code See_Comment [Auto mated = 0603762203) message] The system which generated this result transmit rosanne reference range : 10*3/?L. The reference range was not used to interpret this result as normal/abnormal . GRAN MAT (NEUT) % 51.0 % (test code = 770-8) IMM GRAN % (test code 0.80 % = 8716656675) LYMPH % (test code = 37.1 % 736-9) MONO % (test code = 10.6 % 5905-5) EOS % (test code = 0.0 % 713-8) BASO % (test code = 0.5 % 706-2) GRAN MAT x10^3(ANC) 5.65 10*3/uL 1.99-6.95 (test code = 7736545863) IMM GRAN x10^3 (test 0.09 10*3/uL 0.00-0.06 H code = 7154376739) LYMPH x10^3 (test code 4.10 10*3/uL 1.09-3.23 [...] 7795-8) REACT LYMPHS (test Rare code = 4614269494) Lab Interpretation Abnormal (test code = 79388-4) [facility] METABOLIC PANEL (NA, K, CL, CO2, GLUCOSE, BUN, CREATININE, CA)2023-01-15 13:56:39 Test Item Value Reference Range Interpretation Comments NA (test code = 142 mmol/L 135-145 7446125419) K (test code = 3.9 mmol/L 3.5-5.0 2784807148) CL (test code = 105 mmol/L 98-108 0164422243) CO2 TOTAL (test code 26 mmol/L 23-31 = 4222103620) AGAP (test code = 11 2-16 4109995824) BUN (test code = 9 mg/dL 7-23 1399702202) GLUCOSE (test code = 97 mg/dL 70-110 8287745999) CREATININE (test code 0.73 mg/dL 0.60-1.25 = 8660941989) CALCIUM (test code = 9.5 mg/dL 8.6-10.6 2316793812) eGFR (test code = 138.4 mL/min/1.73m2 2429169291) JAMAL (test code = JAMAL) Association of [...] or urine or abnormalities in imaging tests). [facility] 13:06:00 Test Item Value Reference Range Interpretation Comments ABO & RH (test code = 20) O Negative IAT (test code = 1185) Negative [facility] 11:37:51 Test Item Value Reference Range Interpretation Comments LIPASE (test code = 6347785944) 64 U/L 0-220 Lab Interpretation (test code = Normal 70400-9) [facility]KE[facility] (LEVETIRACETAM)2022-10-29 10:13:11 Test Item Value Reference Range Interpretation Comments KEPPRA (test code = 12-46 L 4036656344) JAMAL (test code = JAMAL) Therapeutic range: 12-46 ?g/mL ? ?Toxic: Not well established.Test developed and characteristics determined by [facility]. Lab Interpretation Abnormal (test code = 01849-8) [facility] METABOLIC PANEL (96425)2022-10-29 10:01:02 Test Item Value Reference Range Interpretation Comments NA (test code = 139 mmol/L 135-145 2154224663) K (test code = 4.4 mmol/L 3.5-5.0 2824749034) CL (test code = 105 mmol/L 98-108 0339294576) CO2 TOTAL (test code 28 mmol/L 23-31 = 6246095051) AGAP (test code = 6 2-16 9005752560) BUN (test code = 14 mg/dL 7-23 3664928601) GLUCOSE (test code = 100 mg/dL 70-110 8457440644) CREATININE (test code 0.78 mg/dL 0.60-1.25 = 5044428264) TOTAL BILI (test code 0.9 mg/dL 0.1-1.1 = 3208408296) CALCIUM (test code = 9.6 mg/dL 8.6-10.6 6167532742) T PROTEIN (test code 7.1 g/dL 6.3-8.2 = 2159971420) ALBUMIN (test code = 4.7 g/dL 3.5-5.0 1711623549) ALK PHOS (test code = 114 U/L 34-122 0226332321) ALTv (test code = 21 U/L 5-50 2-6) AST(SGOT) (test code 37 U/L 13-40 = 6483359979) eGFR (test code = 129.6 mL/min/1.73m2 0272828628) JAMAL (test code = JAMAL) Association of [...] or urine or abnormalities in imaging tests). [facility]2023-[facility] 10:01:02 Test Item Value Reference Range Interpretation Comments MAGNESIUM (test code = 5379534876) 2.2 mg/dL 1.7-2.4 Lab Interpretation (test code = Normal 92599-7) [facility] WITH [id number] 09:57:59 Test Item Value Reference Range Interpretation [...] RDW-SD (test code = 39.8 fL 38.5-49.0 45150-3) RDW-CV (test code = 12.2 % 11.5-14.0 788-0) PLT (test code = 500 See_Comment H [Automated 777-3) message] The sy stem which generated this result transmitted reference range : 133 - 320 10*3/ ?L. The reference r genaro was not used to interpret this result as normal/abnormal . MPV (test code = 8.9 fL 9.3-12.9 L 45454-6) NRBC/100 WBC (test 0.0 See_Comment [Automat ed code = 3001517372) message] The system which generated this result transmitted reference range : 0.0 - 10.0 /100 WBCs. The refer ence range was not u sed to interpret th is result as normal/abnormal . NRBC x10^3 (test code See_Comment [Auto mated = 1442722951) message] The s ystem which generated this result transmitted reference range : 10*3/?L. The reference range was not used to interpret this result as normal/abnormal . GRAN MAT (NEUT) % 36.2 % (test code = 770-8) IMM GRAN % (test code 0.90 % = 0401739752) LYMPH % (test code = 53.2 % 736-9) MONO % (test code = 9.4 % 5905-5) EOS % (test code = 0.0 % 713-8) BASO % (test code = 0.3 % 706-2) GRAN MAT x10^3(ANC) 5.17 10*3/uL 1.50-10.30 (test code = 7637070562) IMM GRAN x10^3 (test 0.13 10*3/uL 0.00-0.06 H code = 5780618109) LYMPH x10^3 (test code 7.61 10*3/uL 0.70-7.40 H = 731-0) MONO x10^3 (test code 1.35 10*3/uL 0.00-0.50 H = 742-7) EOS x10^3 (test code = 0.00-0.40 711-2) BASO x10^3 (test code 0.04 10*3/uL 0.00-0.10 = 704-7) HJ BODIES (test code = Present A 7793-3) REACT LYMPHS (test Rare code = 1803655245) Lab Interpretation Abnormal (test code = 59711-7) [facility] WITH [id number] 02:35:47 Test Item Value Reference Range Interpretation [...] RDW-SD (test code = 39.6 fL 38.5-49.0 79498-6) RDW-CV (test code = 12.1 % 11.5-14.0 788-0) PLT (test code = 486 See_Comment H [Automated 777-3) message] The sy stem which generated this result transmitted reference range : 133 - 320 10*3/ ?L. The reference r genaro was not used to interpret this result as normal/abnormal . MPV (test code = 9.1 fL 9.3-12.9 L 09793-8) NRBC/100 WBC (test 0.0 See_Comment [Automat ed code = 3603725727) message] The system which generated this result transmitted reference range : 0.0 - 10.0 /100 WBCs. The refer ence range was not u sed to interpret th is result as normal/abnormal . NRBC x10^3 (test code See_Comment [Auto mated = 6478042468) message] The s ystem which generated this result transmitted reference range : 10*3/?L. The reference range was not used to interpret this result as normal/abnormal . SEG % (test code = 40 % 33-76 72200-4) LYMPH % (test code = 50 % 15-55 00552-8) MONO % (test code = 10 % 0-4 H 51008-5) ANC (test code = 4.67 10*3/uL 1.50-10.30 753-4) Lab Interpretation Abnormal (test code = 61460-9) [facility] [id number] 02:22:04 Test Item Value Reference Range Interpretation Comments TROPONIN I (test code = 0.002 ng/mL <=0.034 8318702241) JAMAL (test code = JAMAL) Reference (Normal) [...] biotin. Lab Interpretation Normal (test code = 66004-2) [facility] HospitalD-[id number] 02:12:53 Test Item Value Reference Interpretation Comments Range D-DIMER (test code = See_Comment [Autom ated 3798352490) message] The system which generated this result [...] diagnosis. Lab Interpretation Normal (test code = 11648-1) [facility] METABOLIC PANEL (30406)2022-10-28 02:10:47 Test Item Value Reference Range Interpretation Comments NA (test code = 141 mmol/L 135-145 3087597707) K (test code = 4.1 mmol/L 3.5-5.0 6494240679) CL (test code = 107 mmol/L 98-108 3264634801) CO2 TOTAL (test code 23 mmol/L 23-31 = 6968825958) AGAP (test code = 11 2-16 1685830605) BUN (test code = 15 mg/dL 7-23 3680804559) GLUCOSE (test code = 104 mg/dL 70-110 8025639244) CREATININE (test code 0.73 mg/dL 0.60-1.25 = 1135246518) TOTAL BILI (test code 0.8 mg/dL 0.1-1.1 = 9662379042) CALCIUM (test code = 9.4 mg/dL 8.6-10.6 6888434553) T PROTEIN (test code 7.0 g/dL 6.3-8.2 = 7816686108) ALBUMIN (test code = 4.6 g/dL 3.5-5.0 4505709761) ALK PHOS (test code = 109 U/L 34-122 9317365116) ALTv (test code = 21 U/L 5-50 1742-6) AST(SGOT) (test code 23 U/L 13-40 = 2989054728) eGFR (test code = 139.9 mL/min/1.73m2 7420912212) JAMAL (test code = JAMAL) Association of [...] or urine or abnormalities in imaging tests). [facility] WITH [id number] 05:00:52 Test Item Value Reference Range Interpretation Comments WBC (test code = 11.83 See_Comment [Automated 5920-2) message] The system which generated this result transmit rosanne reference range : 4.50 - 13.50 10*3/?L. The reference range was not used to interpret this result as normal/abnormal . RBC (test code = 4.93 See_Comment [Automated 437-8) message] The system which generated this result [...] RDW-SD (test code = 39.3 fL 38.5-49.0 47958-9) RDW-CV (test code = 11.9 % 11.5-14.0 788-0) PLT (test code = 450 See_Comment H [Automated 777-3) message] The system which generated this result transmit rosanne reference range : 133 - 320 10*3/ ?L. The reference range was not u sed to interpret th is result as normal/abnormal . MPV (test code = 9.2 fL 9.3-12.9 L 98150-0) NRBC/100 WBC (test 0.0 See_Comment [Automat ed code = 3145804056) message] The system which generated this result transmit rosanne reference range : 0.0 - 10.0 /100 WBCs. The reference range was not used to interpret this result as normal/abnormal . NRBC x10^3 (test code See_Comment [Auto mated = 4447562492) message] The system which generated this result transmit rosanne reference range : 10*3/?L. The reference range was not used to interpret this result as normal/abnormal . GRAN MAT (NEUT) % 34.0 % (test code = 770-8) IMM GRAN % (test code 0.60 % = 0372536575) LYMPH % (test code = 54.3 % 736-9) MONO % (test code = 9.2 % 5905-5) EOS % (test code = 1.6 % 713-8) BASO % (test code = 0.3 % 706-2) GRAN MAT x10^3(ANC) 4.03 10*3/uL 1.50-10.30 (test code = 2703130779) IMM GRAN x10^3 (test 0.07 10*3/uL 0.00-0.06 H code = 7146803387) LYMPH x10^3 (test code 6.42 10*3/uL 0.70-7.40 = 731-0) MONO x10^3 (test code 1.09 10*3/uL 0.00-0.50 H = 742-7) EOS x10^3 (test code = 0.19 10*3/uL 0.00-0.40 711-2) BASO x10^3 (test code 0.03 10*3/uL 0.00-0.10 = 704-7) SIDEROTIC GRAN (test Suggestive of A code = 7795-8) REACT LYMPHS (test Rare code = 7452224884) Lab Interpretation Abnormal (test code = 03732-8) [facility]OLIC PANEL (82939)2022-10-09 04:54:22 Test Item Value Reference Range Interpretation Comments NA (test code = 142 mmol/L 135-145 2637015733) K (test code = 4.0 mmol/L 3.5-5.0 0291827184) CL (test code = 108 mmol/L 98-108 4060670167) CO2 TOTAL (test code 25 mmol/L 23-31 = 2127607130) AGAP (test code = 9 2-16 1473962727) BUN (test code = 9 mg/dL 7-23 0401007029) GLUCOSE (test code = 106 mg/dL 70-110 7884754190) CREATININE (test code 0.74 mg/dL 0.60-1.25 = 6940085228) TOTAL BILI (test code 0.7 mg/dL 0.1-1.1 = 9225324875) CALCIUM (test code = 9.4 mg/dL 8.6-10.6 4231151339) T PROTEIN (test code 6.9 g/dL 6.3-8.2 = 7235007238) ALBUMIN (test code = 4.4 g/dL 3.5-5.0 5431242129) ALK PHOS (test code = 90 U/L 34-122 6300033113) ALTv (test code = 18 U/L 5-50 1742-6) AST(SGOT) (test code 22 U/L 13-40 = 0709450823) eGFR (test code = 137.8 mL/min/1.73m2 8670027797) JAMAL (test code = JAMAL) Association of [...] or urine or abnormalities in imaging tests). [facility] 04:53:42 Test Item Value Reference Range Interpretation Comments LIPASE (test code = 5900500941) 106 U/L 0-220 Lab Interpretation (test code = Normal 87473-7) [facility] [id number] 06:31:17 Test Item Value Reference Range Interpretation Comments NT-proBNP (test code See_Comment [Autom ated = 9631445950) message] The system which generated this result transmitted reference range : <=125. The reference range was not used to interpret this result as normal/abnormal . JAMAL (test code = JAMAL) Biotin has been reported to cause a negative bias, interpret results relative to patient's use of biotin. Lab Interpretation Normal (test code = 71175-9) [facility] WITH [id number] 06:22:31 Test Item Value Reference Range Interpretation Comments WBC (test code = See_Comment H [Automated 7990-2) message] The sy stem which generated this result transmitted reference range : 4.50 - 13.50 10*3/?L. The reference range was not used to interpret this result as normal/abnormal . RBC (test code = See_Comment [Automated 559-8) message] The sy stem which generated this [...] RDW-SD (test code = 43.3 fL 38.5-49.0 10399-4) RDW-CV (test code = 13.1 % 11.5-14.0 788-0) PLT (test code = See_Comment H [Automated 777-3) message] The sy stem which generated this result transmitted reference range : 133 - 320 10*3/ ?L. The reference r genaro was not used to interpret this result as normal/abnormal . MPV (test code = 8.9 fL 9.3-12.9 L 55673-5) NRBC/100 WBC (test See_Comment [Automat ed code = [id number]) message] The system which generated this result transmitted reference range : 0.0 - 10.0 /100 WBCs. The refer ence range was not u sed to interpret th is result as normal/abnormal . NRBC x10^3 (test code See_Comment [Auto mated = [id number]) message] The s ystem which generated this result transmitted reference range : 10*3/?L. The reference range was not used to interpret this result as normal/abnormal . GRAN MAT (NEUT) % 40.3 % (test code = 770-8) IMM GRAN % (test code 2.30 % = [id number]) LYMPH % (test code = 33.9 % 736-9) MONO % (test code = 9.1 % 5905-5) EOS % (test code = 13.1 % 713-8) BASO % (test code = 1.3 % 706-2) GRAN MAT x10^3(ANC) 5.45 10*3/uL 1.50-10.30 (test code = [id number]) IMM GRAN x10^3 (test 0.31 10*3/uL 0.00-0.06 H code = [id number]) LYMPH x10^3 (test code 4.60 10*3/uL 0.70-7.40 = 731-0) MONO x10^3 (test code 1.24 10*3/uL 0.00-0.50 H = 742-7) EOS x10^3 (test code = 1.78 10*3/uL 0.00-0.40 H 711-2) BASO x10^3 (test code 0.18 10*3/uL 0.00-0.10 H = 704-7) REACT LYMPHS (test Moderate code = 1681209073) Lab Interpretation Abnormal (test code = 59504-4) [facility] [id number] 06:20:41 Test Item Value Reference Interpretation Comments Range TROPONIN I (test 0.001 ng/mL See_Comment [Automated code = 7336695983) message] The system which generated this result [...] biotin. Lab Interpretation Normal (test code = 15974-6) [facility]OL[facility] PAN[facility] (67497)2022-06-21 06:09:03 Test Item Value Reference Range Interpretation Comments NA (test code = 138 mmol/L 135-145 7401671551) K (test code = 4.4 mmol/L 3.5-5.0 0791144843) CL (test code = 104 mmol/L 98-108 1752769705) CO2 TOTAL (test code = 27 mmol/L 23-31 3475698908) AGAP (test code = 2-16 4594953530) BUN (test code = 10 mg/dL 7-23 8778409870) GLUCOSE (test code = 115 mg/dL 70-110 H 2770965068) CREATININE (test code = 0.71 mg/dL 0.60-1.25 5429426205) TOTAL BILI (test code = 0.8 mg/dL 0.1-1.5 2060019310) CALCIUM (test code = 9.6 mg/dL 8.6-10.6 5994006445) T PROTEIN (test code = 6.6 g/dL 6.3-8.2 9757322043) ALBUMIN (test code = 4.3 g/dL 3.5-5.0 8391729947) ALK PHOS (test code = 107 U/L 34-122 7267218325) ALTv (test code = 27 U/L 5-50 1742-6) AST(SGOT) (test code = 29 U/L 13-40 3738469873) eGFR (test code = mL/min/1.73m2 9698060201) JAMAL (test code = JAMAL) Association of [...] tests). Lab Interpretation Abnormal (test code = 50910-4) [facility] [id number] 06:07:03 Test Item Value Reference Range Interpretation Comments APTT Patient (test See_Comment [Automat ed code = 3173-2) message] The system which generated this result transmitted reference range : 23 - 38 Seconds . The reference range was not used to interpr et this result as normal/abnormal . JAMAL (test code = JAMAL) The [facility] patient population mean normal value for aPTT is 30 seconds. Lab Interpretation Normal (test code = 94782-0) [facility] / [id number] 06:05:04 Test Item Value Reference Range Interpretation [...] tions. Lab Interpretation (test Normal code = 12942-4) [facility] (53234)2022-05-29 02:48:30 Test Item Value Reference Range Interpretation Comments NA (test code = 140 mmol/L 135-145 9092157022) K (test code = 4.4 mmol/L 3.5-5.0 9719414123) CL (test code = 103 mmol/L 98-108 4308772571) CO2 TOTAL (test code = 24 mmol/L 23-31 3608875803) AGAP (test code = 2-16 9384857358) BUN (test code = 13 mg/dL 7-23 7430662518) GLUCOSE (test code = 183 mg/dL 70-110 H 0094703446) CREATININE (test code = 0.74 mg/dL 0.60-1.25 7509551848) TOTAL BILI (test code = 0.5 mg/dL 0.1-1.0 6167667664) CALCIUM (test code = 10.4 mg/dL 8.6-10.6 5859061708) T PROTEIN (test code = 7.8 g/dL 6.3-8.2 4898983135) ALBUMIN (test code = 5.0 g/dL 3.5-5.0 2605786194) ALK PHOS (test code = 140 U/L 34-122 H 3836851293) ALTv (test code = 26 U/L 5-50 1742-6) AST(SGOT) (test code = 26 U/L 13-40 2842166911) eGFR (test code = mL/min/1.73m2 0424016321) JAMAL (test code = JAMAL) Association of [...] tests). Lab Interpretation Abnormal (test code = 44477-7) [facility] WITH [id number] 02:38:32 Test Item Value Reference Range Interpretation [...] (test code = 37.9 fL 38.5-49.0 L 32072-8) RDW-CV (test code = 11.9 % 11.5-14.0 788-0) PLT (test code = See_Comment H [Automated 777-3) message] The system which generated this result transmit rosanne reference range : 133 - 320 10*3/ ?L. The reference range was not u sed to interpret th is result as normal/abnormal . MPV (test code = 8.9 fL 9.3-12.9 L 42768-9) NRBC/100 WBC (test See_Comment [Automat ed code = 7273669312) message] The system which generated this result transmit rosanne reference range : 0.0 - 10.0 /100 WBCs. The reference range was not used to interpret this result as normal/abnormal . NRBC x10^3 (test code See_Comment [Auto mated = 3040267462) message] The system which generated this result transmit rosanne reference range : 10*3/?L. The reference range was not used to interpret this result as normal/abnormal . GRAN MAT (NEUT) % 84.1 % (test code = 770-8) IMM GRAN % (test code 1.50 % = 1816082350) LYMPH % (test code = 13.1 % 736-9) MONO % (test code = 0.8 % 5905-5) EOS % (test code = 0.0 % 713-8) BASO % (test code = 0.5 % 706-2) GRAN MAT x10^3(ANC) 12.92 10*3/uL 1.50-10.30 H (test code = 3242885672) IMM GRAN x10^3 (test 0.23 10*3/uL 0.00-0.06 H code = 7746094402) LYMPH x10^3 (test code 2.02 10*3/uL 0.70-7.40 = 731-0) MONO x10^3 (test code 0.13 10*3/uL 0.00-0.50 = 742-7) EOS x10^3 (test code = 0.00-0.40 711-2) BASO x10^3 (test code 0.07 10*3/uL 0.00-0.10 = 704-7) Lab Interpretation Abnormal (test code = 32211-5) [facility] Hospital[facility]CLEAR ANTIBODY (FERNANDA)2022-04-09 12:45:36 Test Item Value Reference Range Interpretation Comments ANTI-NUCLEAR ANTIBODY (FERNANDA) (BEAKER) Negative Negative (test code = 418) Test performed by IFA method.Test performed by IFA method.[id number] 18:24:41 Test Item Value Reference Range Interpretation Comments FERRITIN (BEAKER) (test code = 130.99 ng/mL 5.00-275.00 361) Supervisor Customer Records Division ID - BSHEPATITIS C [id number] 17:56:40 Test Item Value Reference Range Interpretation Comments HEPATITIS C ANTIBODY (BEAKER) Nonreactive Nonreactive (test code = 367) Supervisor Customer Records Division ID - BSHEPATITIS B SURFACE [id number] 17:52:06 Test Item Value Reference Range Interpretation Comments HEPATITIS B SURFACE ANTIBODY < mIU/mL <8.0 (BEAKER) (test code = 647) Supervisor Customer Records Division ID - BSHEPATITIS A ANTIBODY, [id number] 17:52:01 Test Item Value Reference Range Interpretation Comments HEPATITIS A IGG ANTIBODY (BEAKER) Reactive Nonreactive A (test code = 2797) Supervisor Customer Records Division ID - BSHEPATITIS B SURFACE [id number] 17:49:35 Test Item Value Reference Range Interpretation Comments HEPATITIS B SURFACE ANTIGEN (2) Nonreactive Nonreactive (BEAKER) (test code = 2585) Specimen is considered negative for HBsAg.HEPATITIS B CORE ANTIBODY, TOTAL 2022-04-08 17:49:35 Test Item Value Reference Range Interpretation Comments HEPATITIS B CORE TOTAL ANTIBODY Nonreactive Nonreactive (BEAKER) (test code = 497) Supervisor Customer Records Division ID - BSIMMUNOGLOBULIN G (IGG)2022-04-08 17:34:53 Test Item Value Reference Range Interpretation Comments IMMUNOGLOBULIN G (IGG) 1176 mg/dL See_Comment [Aut omated message] (BEAKER) (test code = The sy stem which 427) generated this result transmit rosanne reference range : 540-1,822. The reference range was not used to interpret this result as normal/abnormal . Supervisor Customer Records Division ID - BSIRON, TIBC, % SAT. (WITHOUT FERRITIN)2022-04-08 17:34:53 Test Item Value Reference Range Interpretation Comments IRON (BEAKER) (test code = 547) 122.0 ug/dL 40.0-160.0 TOTAL IRON BINDING CAPACITY 306 ug/dL 250-450 (BEAKER) (test code = 769) IRON % SATURATION (2) (BEAKER) 40 % 20-55 (test code = 2590) Supervisor Customer Records Division ID - [id number] 17:30:09 Test Item Value Reference Range Interpretation Comments ALPHA-1 ANTITRYPSIN (BEAKER) 140.80 mg/dL 90.00-200.00 (test code = 502) Supervisor Customer Records Division ID - BSCOMPREHENSIVE METABOLIC [id number] 17:18:27 Test Item Value Reference Range Interpretation [...] not appl icable for dialysis patien ts Supervisor Customer Records Division ID - BSBILIRUBIN, [id number] 17:18:27 Test Item Value Reference Range Interpretation Comments BILIRUBIN DIRECT (BEAKER) (test 0.3 mg/dL 0.1-0.5 code = 706) Supervisor Customer Records Division ID - BSCBC W/PLT COUNT & AUTO [id number] 16:58:21 Test Item Value Reference Range Interpretation [...] = 2801) Notes Date/Time Note Provider Source 2023-03-20 Formatting of this note might be differe nt from the original. Poncho Yen RN [facility] 03:01:19-00:00 Patient provided with discha rge instructions, and follow up information. Pt verbalizes understanding and able to teach back instructions. Pt ambulatory out of dept with steady gait. [facility] 2023-03-20 [facility] 00:46:12-00:00 Pt to Xray [facility] 2023-03-19 [facility] 23:21:37-00:00 Juilsa Arrieta is a 17 year old male who presents to ER aox4 for cc of body aches, headache, sore throat and cough and chills x a few days. Pt denies any covid contacts. Pt denies fever, nausea or vomiting. Denies CP or SOB. [facility] 2023-03-19 Formatting of this note might be differe nt from the original. Stacy Pressley RN [facility] 22:16:53-00:00 Julisa Arrieta is a 17 year old male here today c/o body aches, cough, congestion and chills x 3 days. Pt denies any sick contact. Pt reports "10/10" pain at this time. Pt reports diarrhea and naus ea but denies vomiting. Pt i s A&Ox4, NAD Noted. RR even/unlabored. Pt to room for evaluation. [facility] 2023-03-19 Formatting of this note is different fro m the original. 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 treatment: None Travel and Exposure Screening: Symptoms Does patient have any of these symptoms?: (not r ecorded) Exposure Screening Has patient had contact with someone with a communicable disease in the last month?: (not recorded) Diseases exposed to:: (not recorded) Is Patient ?: (not recorded) Exposure Date: (not recorded) Chief Complaint: Chief Complaint Patient presents with Body Aches Headache History of Present Illness: History provided by: Medical records and patient 17-year-old male with a past medical history of splenectomy in 2020 presents with 3 days of cough, congestion, body aches, shortness of breath, diarrhea nausea as well as headache and sore throat. The p atient also complains of right lower quadrant pa in. + Nausea and Chills, Denies vomiting. Past Medical History/Immunizations: Past Medical History: Diagnosis [...] 10/13/2004 Unspecified viral meningitis 1 week old Tetanus received in last 5 years: Yes Allergies: Allergies Allergen Reactions Sulfa (Sulfonamide Antibiotics) Anaphylaxis Informed by parents Albuterol Palpitations Tolerates xopenex better Allergy Type: Food Current Treatment & Notes:Tolerates xopenex bett er Clindamycin Rash and Shortness of Breath Adhesive Rash ECG electrode patches with heart monitor Latex [place] Unknown - See comments Penicillins Pollen Extracts Prednisone Rash Singulair [Montelukast] Other - See comments Aggressive Suprax [Cefixime] Swelling Tape [Adhesive Tape] Unknown - See comments Vancomycin Rash Allergy Type: Medication Current Treatment & Notes: C an have vancomycin, but needs to be run over 2 hours with benadryl. Dunning/redness to face and neck; run over 2 hours Past Social History: Tobacco Use Never smoked or used smokeless tobacco. Past Surgical History: Past Surgical History: Procedure Laterality Date CIRCUMCISION FUNDOPLICATION 11/16/2004 LOOP RECORDER INSERTION METACARPAL ORIF Right 01/18/2023 Surgeon: Hannah Ventura MD; Location: [facility] OR LOCATION SPLENECTOMY 2020 STOMACH SURGERY PROCEDURE UNLISTED 10/17/2004 acid reflux TEAR DUCT SYSTEM SURG UNLISTED 12/17/2005 right TONSILLECTOMY WITH ADENOIDECTOMY Review of Systems: Review of Systems Constitutional: Positive for activity change, appetite change, chills and fatigue. Negative for diaphoresis and fever. HENT: Positive for congestio n. Negative for drooling, ear pain, facial swelling, mouth sores, postnasal drip, sinus pressure and sore throat. Eyes: Negative for pain, discharge and itching. Respiratory: Negative for co ugh, chest tightness, shortness of breath and wheezing. Breasts: Negative for mass and pain. Cardiovascular: Negative for chest pain and leg swelling. Gastrointestinal: Positive f or abdominal pain and nausea. Negative for abdominal distention, anal bleeding, blood in stool, constipation, diarrhea and vomiting. Genitourinary: Negative for urgency, polyuria, f requency and flank pain. Musculoskeletal: Negative fo r arthralgias, back pain, joint swelling, myalgias, neck pain and neck stiffness. Skin: Negative for color change, pallor and rash . Neurological: Negative for d izziness, tremors, seizures, facial asymmetry, speech difficulty, light-headedness, numbness and headaches. Psychiatric/Behavioral: Nega tive for agitation, behavioral problems, confusion, decreased concentration, dysphoric mood, hallucinations, self-injury, sleep disturbance and suicidal ideas. The patient is not hyperactive. Hematological: Negative for adenopathy. Endocrine: Negative for polydipsia, polyphagia a nd polyuria. Physical Exam: ED Triage Vitals [03/19/232217] Weight 83.9 kg (185 lb) Actual or estimated Height BP 132/84 Pulse 110 Resp 18 Temp 37.1 ?C (98.7 ?F) Temp source Oral SpO2 96 % Measured on Room air Physical Exam Vitals and nursing note reviewed. Exam conducted with a ethylbenzene converter helper present. Constitutional: General: He is not in acute distress. Appearance: Normal appearan ce. He is normal weight. He is not ill-appearing, toxic-appearing or diaphoretic. HENT: Head: Normocephalic and atraumatic. Right Ear: External ear normal. Left Ear: External ear normal. Nose: Nose normal. No congestion or rhinorrhea. Mouth/Throat: Pharynx: No oropharyngeal exudate or posterior oropharyngeal erythema. Eyes: General: No scleral icterus. Extraocular Movements: Extraocular movements in tact. Conjunctiva/sclera: Conjunctivae normal. Pupils: Pupils are equal, round, and reactive to light. Cardiovascular: Rate and Rhythm: Normal rate and regular rhythm . Heart sounds: No murmur heard. No friction rub. No gallop. Pulmonary: Effort: Pulmonary effort is normal. No respirat ory distress. Breath sounds: Normal breat h sounds. No stridor. No wheezing, rhonchi or rales. Abdominal: General: Abdomen is flat. Bowel sounds are norm al. There is no distension. Palpations: Abdomen is soft. Tenderness: There is no abd ominal tenderness. There is no right CVA tenderness, left CVA tenderness, guarding or rebound. Comments: No RLQ tenderness on exam Musculoskeletal: General: No swelling or tenderness. Normal rang e of motion. Cervical back: Normal range of motion. No rigid ity or tenderness. Right lower leg: No edema. Left lower leg: No edema. Lymphadenopathy: Cervical: No cervical adenopathy. Skin: General: Skin is warm. Capillary Refill: Capillary refill takes less t chris 2 seconds. Coloration: Skin is not jaundiced. Findings: No bruising, lesion or rash. Neurological: General: No focal deficit present. Mental Status: He is alert and oriented to pers on, place, and time. Cranial Nerves: No cranial nerve deficit. Psychiatric: Mood and Affect: Mood normal. Radiology: XR CHEST 2 VW Final Result History: cough, myalgias . Exam: XR CHEST 2 VW Date: 03/20/2023 12:15 AM Ordering provider: ADELINE BOURGEOIS Technical quality: Adequate Comparison: None available. Findings: Frontal and lateral views of the chest are obtained. The cardiac silhouette is normal in size. No janny dence of infiltrate, pleural effusion, CHF, or pneumothorax. Loop rec order overlies the left chest. IMPRESSION Impression: No acute cardiopulmonary finding. RL: 781 AFC: [id number] Electronically signed by Salo Forte MD at 1:23 AM Lab Results: Lab Results CBC WITH DIFF - Abnormal Result Value Ref Range WBC 13.69 (*) 4.20 - 10.70 10*3/?L RBC 5.14 4.26 - 5.52 10*6/?L HGB 16.6 (*) 12.2 - 16.4 g/dL HCT 45.8 38.4 - 49.3 % MCV 89.1 81.7 - 95.6 fL MCH 32.3 26.1 - 32.7 pg MCHC 36.2 (*) 31.2 - 35.0 g/dL RDW-SD 39.5 38.5 - 51.6 fL RDW-CV 12.0 (*) 12.1 - 15.4 % PLT 500 (*) 150 - 328 10*3/?L MPV 8.6 (*) 9.8 - 13.0 fL NRBC/100 WBC 0.0 0.0 - 10.0 /100 WBCs NRBC x10^3 <0.01 10*3/?L GRAN MAT (NEUT) % 53.5 % IMM GRAN % 0.70 % LYMPH % 34.6 % MONO % 11.0 % EOS % 0.0 % BASO % 0.2 % GRAN MAT x10^3(ANC) 7.34 (*) 1.99 - 6.95 10*3/u L IMM GRAN x10^3 0.09 (*) 0.00 - 0.06 10*3/uL LYMPH x10^3 4.73 (*) 1.09 - 3.23 10*3/uL MONO x10^3 1.50 (*) 0.36 - 1.02 10*3/uL EOS x10^3 <0.03 (*) 0.06 - 0.53 10*3/uL BASO x10^3 0.03 0.01 - 0.09 10*3/uL HJ BODIES Present (*) SIDEROTIC GRAN Suggestive of (*) REACT LYMPHS Rare COMP. METABOLIC PANEL (11726) - Abnormal NA 138 135 - 145 mmol/L K 3.5 3.5 - 5.0 mmol/L CL 101 98 - 108 mmol/L CO2 TOTAL 27 23 - 31 mmol/L AGAP 10 2 - 16 BUN 12 7 - 23 mg/dL GLUCOSE 123 (*) 70 - 110 mg/dL CREATININE 0.80 0.60 - 1.25 mg/dL TOTAL BILI 0.8 0.1 - 1.1 mg/dL CALCIUM 9.8 8.6 - 10.6 mg/dL T PROTEIN 7.3 6.3 - 8.2 g/dL ALBUMIN 4.5 3.5 - 5.0 g/dL ALK PHOS 111 34 - 122 U/L ALTv 19 5 - 50 U/L AST(SGOT) 23 13 - 40 U/L eGFR 124.5 mL/min/1.73m2 LIPASE - Normal LIPASE 70 0 - 220 U/L COVID-19 (ID NOW RAPID TESTING) - Normal SARS-CoV-2 Rapid ID NOW Not Detected Not Detect ed [facility] ONLY - INFLUENZA A B RSV PCR - Normal Influenza A virus by PCR Negative Negative Influenza B virus by PCR Negative Negative RSV by PCR Negative Negative RAPID STREP SCREEN FOR GROUP A - Normal Molecular Strep A Negative Negative THROAT CULTURE EKG: If EKG completed, see Procedure Note. Orders and Treatments: Orders Placed This Encounter Procedures XR CHEST 2 VW CBC WITH DIFF LIPASE COMP. METABOLIC PANEL (30293) COVID-19 (ID NOW TESTING) [facility] ONLY - INFLUENZA A B RSV PCR LAB ONLY COVID INTERPRETATION RAPID STREP SCREEN FOR GROUP A THROAT CULTURE Orders Placed This Encounter Medications NaCl 0.9% (NS) bolus infusion 1,000 mL ketorolac (TORADOL) injection 15 mg DISCONTD: acetaminophen (TYLENOL) tablet 1,000 mg NaCl 0.9% (NS) bolus infusion 1,000 mL acetaminophen (TYLENOL) tablet 1,000 mg ibuprofen (IBU) tablet 400 mg First Provider Eval: ED Events Date/Time Event User Comments 03/19/232230 Medical Screening Begins ADELINE ROYAL -- 03/19/232230 First Provider Evaluation ADELINE BOURGEOIS DO -- No notes of EC Admission Criteria type on file. ED COURSE Diagnosis/Impression as of 03/20/23 0250 Myalgia Diarrhea, unspecified type Procedures: Procedures MDM: Medical Decision Making 17-year-old male with a past medical history of splenectomy in 2020 presents with 3 days of cough, congestion, body aches, shortness of breath, diarrhea nausea as well as headache and sore throat. The p atient also complains of right lower quadrant pa in. + Nausea and Chills, Denies vomiting. Diff dx: Viral URI, COVID, Pneumonia, Strep Thro at IV, CBC, CMP, COVID/Flu/Strep Swab Recent Results (from the past 24 hour(s)) -CBC WITH DIFF: Collection Time: 03/19/23 11:17 PM Result Value Ref Range WBC 13.69 (H) 4.20 - 10.70 10*3/?L RBC 5.14 4.26 - 5.52 10*6/?L HGB 16.6 (H) 12.2 - 16.4 g/dL HCT 45.8 38.4 - 49.3 % MCV 89.1 81.7 - 95.6 fL MCH 32.3 26.1 - 32.7 pg MCHC 36.2 (H) 31.2 - 35.0 g/dL RDW-SD 39.5 38.5 - 51.6 fL RDW-CV 12.0 (L) 12.1 - 15.4 % PLT 500 (H) 150 - 328 10*3/?L MPV 8.6 (L) 9.8 - 13.0 fL NRBC/100 WBC 0.0 0.0 - 10.0 /100 WBCs NRBC x10^3 <0.01 10*3/?L GRAN MAT (NEUT) % 53.5 % IMM GRAN % 0.70 % LYMPH % 34.6 % MONO % 11.0 % EOS % 0.0 % BASO % 0.2 % GRAN MAT x10^3(ANC) 7.34 (H) 1.99 - 6.95 10*3/u L IMM GRAN x10^3 0.09 (H) 0.00 - 0.06 10*3/uL LYMPH x10^3 4.73 (H) 1.09 - 3.23 10*3/uL MONO x10^3 1.50 (H) 0.36 - 1.02 10*3/uL EOS x10^3 <0.03 (L) 0.06 - 0.53 10*3/uL BASO x10^3 0.03 0.01 - 0.09 10*3/uL HJ BODIES Present (A) SIDEROTIC GRAN Suggestive of (A) REACT LYMPHS Rare -LIPASE: Collection Time: 03/19/23 11:17 PM Result Value Ref Range LIPASE 70 0 - 220 U/L -COMP. METABOLIC PANEL (13831): Collection Time: 03/19/23 11:17 PM Result Value Ref Range NA 138 135 - 145 mmol/L K 3.5 3.5 - 5.0 mmol/L CL 101 98 - 108 mmol/L CO2 TOTAL 27 23 - 31 mmol/L AGAP 10 2 - 16 BUN 12 7 - 23 mg/dL GLUCOSE 123 (H) 70 - 110 mg/dL CREATININE 0.80 0.60 - 1.25 mg/dL TOTAL BILI 0.8 0.1 - 1.1 mg/dL CALCIUM 9.8 8.6 - 10.6 mg/dL T PROTEIN 7.3 6.3 - 8.2 g/dL ALBUMIN 4.5 3.5 - 5.0 g/dL ALK PHOS 111 34 - 122 U/L ALTv 19 5 - 50 U/L AST(SGOT) 23 13 - 40 U/L eGFR 124.5 mL/min/1.73m2 -COVID-19 (ID NOW TESTING): Collection Time: 03/19/23 11:17 PM Specimen: NASOPHARYNGEAL SWAB Result Value Ref Range SARS-CoV-2 Rapid ID NOW Not Detected Not Detect ed -[facility] ONLY - INFLUENZA A B RSV PCR: Collection Time: 03/19/23 11:17 PM Specimen: NASOPHARYNGEAL SWAB Result Value Ref Range Influenza A virus by PCR Negative Negative Influenza B virus by PCR Negative Negative RSV by PCR Negative Negative -RAPID STREP SCREEN FOR GROUP A: Collection Time: 03/20/23 12:14 AM Specimen: THROAT; Swab Result Value Ref Range Molecular Strep A Negative Negative Hospital Encounter on 03/19/23 -XR CHEST 2 VW: Narrative History: cough, myalgias . Exam: XR CHEST 2 VW Date: 03/20/2023 12:15 AM Ordering provider: ADELINE BOURGEOIS Technical quality: Adequate Comparison: None available. Findings: Frontal and lateral views of the ches t are obtained. The cardiac silhouette is normal in size. No ev idence of infiltrate, pleural effusion, CHF, or pneumothorax. Loop re faiza overlies the left chest. Impression Impression: No acute cardiopulmonary finding. RL: 781 AFC: [id number] Tylenol, Toradol and IV Fluids given The patient's symptoms improved The patient was discharged with return precation s. Problems Addressed: Diarrhea, unspecified type: acute illness or inj ury Myalgia: acute illness or injury Amount and/or Complexity of Data Reviewed Labs: ordered. Radiology: ordered. Risk OTC drugs. Prescription drug management. Flowsheet Documentation: Scoring Tools: No data recorded [...] AZITHROMYCIN 200 MG/5 ML SUSPENSION Take 6.5 mL by mouth in the morning. HYHRJRAMBR-VDOTMEVP-WYTMNUB ROL (BREZTRI AEROSPHERE) 160-9-4.8 MCG/ACTUATION HFAA Inhale [...] LISDEXAMFETAMINE 40 MG CAPSULE Take 1 capsule b y mouth every morning. METHOCARBAMOL 750 MG TABLET TAKE 1 TABLET BY MO UTH EVERY DAY NEEDED METOPROLOL SUCCINATE XL 25 MG 24 HR TABLET Take 1 tablet by mouth in the morning. MIDAZOLAM (NAYZILAM) 5 MG/S PRAY (0.1 ML) SPRY Use 1 [place] in 1 nostril SEE- INSTRUCTIONS. 1 spray [...] SUMATRIPTAN 5 MG/ACTUATION NASAL SPRAY Use 1 [place] in each nostril as needed for headache [...] these medications No medications on file Follow-up: Contact information for follow-up [place] Specialty: GREEN MARKETING SPECIALIST-NURSE PRACTITIONER Relationship: PCP - General [address] [facility] [id number] Electronically signed by: Adeline Bourgeois DO 03/20/23 0256 Electronically signed by Adeline Bourgeois DO at 0 03/20/2023 2:56 AM CDT 2023-03-18 Formatting of this note might be differe nt from the original. Megan Jim RN [facility] 13:45:40-00:00 Pt was called by this nurse for swabs and discharge. Pt had left facility. No assessment by this nurse. Electronically signed by Megan Jim RN at 0 03/18/2023 1:45 PM CDT 2023-03-18 Formatting of this note might be differe nt from the original. Antoine Waters [facility] 13:27:03-00:00 Body aches ,fever, and cough x 3 days. RN 2023-03-18 Formatting of this note is different from the or iginal. [facility] 13:10:00-00:00 [facility] Emergency Department Note Patient Name: Julisa Arrieta Date of : 2005 17 year old male Treatment Room: Room/bed info not found Primary Care Physician: [place] Patient Escorted by: Family [5] Mode [...] ECG electrode patches with heart monitor Latex [place] Unknown - See comments Penicillins Pollen Extracts Prednisone Rash Singulair [Montelukast] Other - See comments Aggressive Suprax [Cefixime] Swelling Tape [Adhesive Tape] Unknown - See comments Vancomycin Rash Allergy Type: Medication Current Treatment & Notes: C an have vancomycin, but needs to be run over 2 hours with benadryl. Dunning/redness to face and neck; run over 2 hours Past Social History: Tobacco Use Never smoked or used smokeless tobacco. Past Surgical History: Past Surgical History: Procedure Laterality Date CIRCUMCISION FUNDOPLICATION 11/16/2004 LOOP RECORDER INSERTION METACARPAL ORIF Right 01/18/2023 Surgeon: Hannah Ventura MD; Location: [facility] OR LOCATION SPLENECTOMY 2020 STOMACH SURGERY PROCEDURE UNLISTED 10/17/2004 acid [...] Medical Decision Making The patient presents from [facility] for eval for cough and body aches [...] these medications which have NOT CHANGED ARIPIPRAZOLE (ABILIFLiliana MAINT VICKY) 300 MG SERS by Intramuscular route once every month. ATOGEPANT (QULIPTA) 60 MG TAB Take 1 tablet by mouth daily. AZITHROMYCIN 200 MG/5 ML SUSPENSION Take 6.5 mL by mouth in the morning. [id number]-[id number]-[id number] ROL (BREZTRI AEROSPHERE) 160-9-4.8 MCG/ACTUATION HFAA Inhale [...] LISDEXAMFETAMINE 40 MG CAPSULE Take 1 capsule b y mouth every morning. METHOCARBAMOL 750 MG TABLET TAKE 1 TABLET BY MO UTH EVERY DAY NEEDED METOPROLOL SUCCINATE XL 25 MG 24 HR TABLET Take 1 tablet by mouth in the morning. MIDAZOLAM (NAYZILAM) 5 MG/S PRAY (0.1 ML) SPRY Use 1 [place] in 1 nostril SEE- INSTRUCTIONS. 1 spray [...] SUMATRIPTAN 5 MG/ACTUATION NASAL SPRAY Use 1 [place] in each nostril as needed for headache [...] signed by: Faith White DO 03/18/23 1336 2023-03-18 [facility] 10:14:28-00:00 Patient's PA was approved PA approval faxed to [facility] Electronically signed by Leigh Brower RN at 10:15 AM CDT 2023-03-17 [facility] 10:40:29-00:00 PA submitted on [employer] Julisa Arrieta ([place]ough: [id number]) Status Sent to [employer] The plan will fax you a determination, typically within 1 to 5 business days. Drug Breztri Aerosphere 160-9-4.8MCG/ACT aerosol Form [employer] as Medicaid Standard Prior Authorization Request Form Prior Authorization Form for Prescription Drugs for [employer] [place] Medicaid Members phone fax Electronically signed by Leigh Brower RN at 10:41 AM CDT 2023-03-17 Formatting of this note might be differe nt from the original. Bernice Aguilera [facility] 08:09:34-00:00 Images from the original note were not included. Electronically signed by Bernice Aguilera at 023 8:09 AM T 2023-03-16 [facility] 08:37:12-00:00 Images from the original note were not included. Breztri Aerosphere 160-9-4.8MCG/ACT Aerosol pres cription [place]ough: [id number] Electronically signed by Bernice Aguilera at 023 8:38 AM CDT 2023-03-11 [facility] 09:40:52-00:00 This issue has been resolved. Closing encounter. 2023-03-11 Formatting of this note might be differe nt from the original. Jing Tripathi [facility] 08:52:11-00:00 Julisa Arrieta is a 17 year old male. Has this been resolved? Electronically signed by Jing Tripathi at 2022 8:52 AM T 2023-03-09 Formatting of this note might be differe nt from the original. Rafaela Jhaveri RN [facility] 20:55:02-00:00 Pt given printed and [...] differe nt from the original. Antoine Waters [facility] 16:53:24-00:00 Patient to ED for left sided chest pain that started at 1450. Went to school nurse and they told him to go to the ED. RN 2023-03-09 Formatting of this note might be differe nt from the original. Radha Olea LVN [facility] 16:13:57-00:00 Returned call and spoke agapito ghadas mother. States his heart rate was in the 160's and he could not be sent home on the bus from school. She reached someone from Dr. Edwards office and advised to go to ED. They are in route to [facility]. 2023-03-09 Formatting of this note might be differe nt from the original. Paula Cruz [facility] 15:44:13-00:00 Mom stated that her [...] at 0 03/09/2023 3:48 PM CDT 2023-03-08 [facility] 09:48:27-00:00 Unsure if insurance will [...] nt from the original. Rachel Hunt MA [facility] 08:50:32-00:00 Routing to provider for approval or denial Electronically signed by Rachel Hunt MA a t 03/08/2023 8:52 AM CDT 2023-03-05 Formatting of this note might be differe nt from the original. Rosemary Siddiqi [facility] 16:32:01-00:00 Julisa Arrieta is a [...] nt from the original. Tico Garduno RN [facility] 19:59:51-00:00 Pt and guardians given [...] steady gait, in no apparent distress. 2023-03-03 [facility] 13:47:39-00:00 Patient currently at ER. [...] nt from the original. Katiana Oliva RN [facility] 13:39:25-00:00 CC: patient presents to the ER with complaints of chest wall pain at the insertion site of his new loop recorder and lightheadedness that began today around 1100. No medications given [employer]. PMHx: see history Awake, alert, oriented, resp reg unlabored, skin warm and dry, color appropriate for race, moves all ext without difficulty, using wheelchair. Appears in no distress. T 2023-03-03 Formatting of this note might be differe nt from the original. Oli Andres [facility] 11:51:55-00:00 Julisa Arrieta is a 17 year old male Mom is calling regarding pts heart concerns and wants to speak to nurse thierry Please advise [phone] (home) Electronically signed by Oli Andres at 02/16 11:53 AM T 2023-03-03 Formatting of this note might be differe nt from the original. Dhara Lerner RN [facility] 10:11:53-00:00 Forms have been received and placed in providers folder for review. Will send back when signed. Closing encounter. T 2023-03-03 Formatting of this note might be differe nt from the original. Paula Cruz [facility] 09:47:42-00:00 Patient mom called stating s he is needing a school note for the nurse regarding her sons monitor he has on nurse is very concerned and needs documentation on if she is needing to check it every so often through out the day. Please e-mail the school n fawn at [email or web address] Please advise, thank you. Electronically signed by Paula Cruz at 0 03/03/2023 9:50 AM CDT 2023-03-03 Formatting of this note might be differe nt from the original. Rachel Marrero [facility] 09:36:10-00:00 Patient mother calling [employer] the patient has returned back to public school and the school nurse is needing a seizure action plan form sent to her by E- mail. Please advise [facility] Nurse: Shelby Rosario E-mail: [email or web address] Electronically signed by Rachel Marrero at 02/16 9:38 AM CDT 2023-02-23 Formatting of this note might be differe nt from the original. Eugenia Mojica RN [facility] 11:01:45-00:00 AVS given and gone over with pt and family, all questions answered. Lt chest dressing C/D/I. IV removed, dressing C/D/I. Pt and mom ambulated to lobby on foot. No distress noted. T 2023-02-23 [facility] 07:41:46-00:00 Please assist with getting P A for the sumatriptan spray. Epic will no allow us to put in 2 boxes. Medication comes in 4 to a box. T 2023-02-22 Formatting of this note might be differe nt from the original. Rosemary Siddiqi [facility] 11:53:44-00:00 Julisa Arrieta is a [...] nt from the original. Dhara Lerner RN [facility] 11:22:05-00:00 Pt.S family notified, and ab le to verbalized understanding of directions and use of the nasel sumatriptan. Pt's mother stated that he never got the sumatriptan oral, according to pt's mother, the pharmacist only gave them one. Closing encounter. T 2023-02-22 [facility] 10:36:41-00:00 Done. Please instruct them n ot to use sumatriptan (which includes the nasal spray and the pills) for more than 10 days in a month. Thanks. Electronically signed by Jose Christopher MD at 10:37 AM T 2023-02-22 [facility] 10:16:10-00:00 please review and a dvise. mother is requesting a prescription for Imitrex nasal spray. Please advise, thank you. 2023-02-22 Formatting of this note might be differe nt from the original. Steve Cooper RN [facility] 09:04:34-00:00 Patient to arrive at new time of 0730 Electronically signed by Steve Cooper RN at 0 02/22/2023 9:05 AM CDT 2023-02-22 Formatting of this note might be differe nt from the original. Rosemary Siddiqi [facility] 08:45:16-00:00 Julisa Arrieta is a 17 year old male Mom Candy calling to see about getting RX for imitrex nasal spray. She is requesting 2 boxes. He is about to start school. Please give her a call with any questions. [id number] - [place], [place] - [address] [place] [place] [address] Electronically signed by Rosemary Siddiqi at 0 02/22/2023 8:47 AM CDT 2023-02-18 Formatting of this note might be differe nt from the original. Sarbjit Coyle RN [facility] 10:54:02-00:00 Pt's mother called to let us know that cardio clearance cannot be given yet until further diagnostics are completed as per final rail cutter 2023-02-18 [facility] 10:06:58-00:00 Medical Records requested fr [employer]. For Dr. Priest, Dr. Michael, Dr. Bosch faxed to [facility] Dept. Follow up with them for status updates. Electronically signed by Michele Simons MA a t 02/18/2023 10:08 AM CDT 2023-02-18 Formatting of this note might be differe nt from the original. Sarbjit Coyle RN [facility] 09:06:46-00:00 Pt's mother returned call an d stated she would put a call into final rail cutter to see if clearance can be given. 2023-02-18 Formatting of this note might be differe nt from the original. Sarbjit Coyle RN [facility] 08:57:44-00:00 I called pt to ask where we are on getting cardio clearance so pt can get EGD. Pt has cardio appt on 02/23/23. No answer, I left VM with my call back number. 2023-02-17 [facility] 11:18:31-00:00 [facility] EP LAB PRE-CALL INSTRUCTIONS EP Instructions [...] [facility] via [address] from either [address] or [address]. Bring your parking ticket with you to be validated, only one parking ticket may be validated per patient. There may be a possibility o f hospital admission or late evening discharge; therefore, bring leisure reading and an overnight bag. On the day of your procedure , come directly to the Electrophysiology Lab law firm receptionist desk, located on the 6th floor of [facility] ([phone].) You will be escorted to the Cardiac [...] be differe nt from the original. Christen Siddqii MA [facility] 09:41:44-00:00 Spoke to Martita with [facility], medication is to be sent to patient. Verbal understanding. 2023-02-09 Formatting of this note might be differe nt from the original. Rosemary Siddiqi [facility] 16:45:59-00:00 Julisa Arrieta is a 17 year old male Anabela calling w/ [facility] needing to know where to dispense the medication nucala 100mg: to the patient or to the office? Please call to confirm. Electronically signed by Rosemary Siddiqi at 0 02/09/2023 4:47 PM CDT
[2023-03-21 19:22] LABS: Absolute Lymphocytes (CBC) 4.2 K/uL (0.7-4.9); Hematocrit 44.2 % (39.6-49.0); Lymphocytes % 30.2 % (15.3-44.8); MCV 91.3 fL (80-100); MPV 6.9 fL (7.6-11.3); Platelets 462 thou/uL (152-406); RBC Red Blood Cell Count 4.84 M/uL (4.33-5.43)
[2023-03-21] MEDS ORDERED: KETOROLAC 30 MG/ML INJ ONE (19:32)
[2023-03-21 19:37] LABS: Protime INR 1.13
[2023-03-21 19:44] LABS: Magnesium 2.4 mg/dL (1.6-2.4); Potassium 3.3 mEq/L (3.5-5.1); Troponin High Sensitivity 4.9 pg/mL (<58.9)
--- NOTE | 2023-03-21 20:00 | RAD REPORT ---
EXAM DESCRIPTION: RAD - Chest Single View - 03/21/2023 7:47 pm CLINICAL HISTORY: CHEST PAIN COMPARISON: Chest Single View dated 03/05/2023; Chest Single View dated 02/21/2023; Chest Pa And Lat (2 Views) dated 11/24/2022; Chest Single View dated 11/10/2022 FINDINGS: Lines: Loop recorder overlies the heart Lungs: No evidence of edema or pneumonia. Pleural: No significant pleural effusions or pneumothorax. Cardiac: The heart size is within normal limits. Mediastinum: Within normal limits. Bones: No acute fractures. Other: None IMPRESSION: No acute cardiopulmonary disease.
[2023-03-21] MEDS ORDERED: FENTANYL CITR 100 MCG/2 ML ONE (20:16)
--- NOTE | 2023-03-21 20:48 | EDPHYS ---
Physician Documentation [facility] Name: Manjinder Arrieta Age: 17 yrs Sex: Male : 2005 Arrival Date: 03/21/2023 Time: 18:17 Bed 19 Private MD: ED Physician Deanna Gee HPI: 03/21 18:50 This 17 yrs old Male presents to ER via Wheelchair with complaints of Chest Pain, cp Shortness Of Breath. 18:50 The patient or guardian reports chest pain that is located primarily in the anterior cp chest wall. 18:50 The pain does not radiate. cp 18:50 Associated signs and symptoms: Pertinent positives: shortness of breath, Pertinent cp negatives: cough, diaphoresis, dizziness, lower extremity pain, lower extremity swelling, syncope, vomiting. The chest pain is described as aching. Duration: The patient or guardian reports a single episode, that is still ongoing, and unchanged. Historical: - Allergies: 18:32 adhesive tape; iw 18:32 Adhesives; iw 18:32 Albuterol; iw 18:32 cefixime; iw 18:32 Clindamycin; iw 18:32 Latex, Natural Rubber; iw 18:32 montelukast; iw 18:32 [place] (Prunus Persica); iw 18:32 PENICILLINS; iw 18:32 Prednisone; iw 18:32 Sulfa (Sulfonamide Antibiotics); iw 18:32 Suprax; iw 18:32 Vancomycin; iw - PMHx: 18:32 Anemia; Anxiety; Asthma; Autism; bacterial meningitis; Bipolar disorder; Depression; iw epillepsy; hepatosplegomegaly; Migraines; ADD/ADHD; - PSHx: 18:32 ear tubes; eye surgery; fundiplication; Splenectomy; tear duct surgeries; iw Tonsillectomy; Adenoid excision; - Immunization history:: Adult Immunizations up to date. - Social history:: Smoking status: Patient denies any tobacco usage or history of. ROS: 18:55 Constitutional: Negative for body aches, chills, fever, poor PO intake. cp 18:55 Cardiovascular: Positive for chest pain, Negative for edema, palpitations. cp 18:55 Respiratory: Positive for shortness of breath, Negative for cough, wheezing. 18:55 Abdomen/GI: Negative for abdominal pain, vomiting, diarrhea, constipation. 18:55 Eyes: Negative for injury, pain, redness, and discharge. cp 18:55 ENT: Negative for drainage from ear(s), ear pain, sore throat, difficulty swallowing, cp difficulty handling secretions. 18:55 Back: Negative for radiated pain. 18:55 : Negative for urinary symptoms. 18:55 Neuro: Negative for altered mental status, dizziness, headache, weakness. 18:55 All other systems are negative. Exam: 19:00 Constitutional: The patient appears in no acute distress, alert, awake, cp non-diaphoretic, non-toxic, well developed, well nourished. 19:00 Head/Face: Normocephalic, atraumatic. cp 19:00 Eyes: Periorbital structures: appear normal, Conjunctiva: normal, no exudate, no injection, Sclera: no appreciated abnormality, Lids and lashes: appear normal, bilaterally. 19:00 ENT: External ear(s): are unremarkable, Nose: is normal, Mouth: Lips: moist, Oral mucosa: pink and intact, moist, Posterior pharynx: is normal, airway is patent, no erythema, no exudate. 19:00 Neck: ROM/movement: is normal, is supple, without pain, no range of motions limitations. 19:00 Chest/axilla: Inspection: normal, Palpation: is normal, no crepitus, no tenderness. 19:00 Cardiovascular: Rate: tachycardic, Rhythm: regular, Edema: is not appreciated, JVD: is not appreciated. 19:00 Respiratory: the patient does not display signs of respiratory distress, Respirations: normal, no use of accessory muscles, no retractions, labored breathing, is not present, Breath sounds: are clear throughout, no decreased breath sounds, no stridor, no wheezing. 19:00 Abdomen/GI: Inspection: abdomen appears normal, Palpation: abdomen is soft and non-tender, in all quadrants. 19:00 Back: pain, is absent, ROM is normal. 19:00 Skin: no rash present. 19:00 Neuro: Orientation: to person, place \T\ time. Mentation: is normal, Motor: moves all fours, strength is normal, Sensation: is normal. 19:14 ECG was reviewed by the Attending Physician. cp Vital Signs: 18:30 BP 131 / 83; Pulse 100; Resp 16; Temp 98.8; Pulse Ox 99% on R/A; Weight 83.91 kg; iw Height 5 ft. 8 in. ; Pain 10/10; 19:26 BP 123 / 83; Pulse 100; Resp 18; Temp 98.8(O); Pulse Ox 100% on R/A; Pain 7/10; sg5 20:41 BP 124 / 79; Pulse 84; Resp 16; Pulse Ox 97% on R/A; Pain 3/10; sg5 18:30 Body Mass Index 28.13 (83.91 kg, 172.72 cm) iw 18:30 Pain Scale: Adult iw 19:26 Pain Scale: Adult sg5 20:41 Pain Scale: Adult sg5 MDM: 18:41 Patient medically screened. cp 20:47 Data reviewed: vital signs, nurses notes, lab test result(s), EKG, radiologic studies, cp plain films. 20:47 Differential diagnosis: abnormal EKG, acute myocardial infarction, acute pericarditis, cp chest wall pain, costochondritis, gastritis, pleurisy, pneumonia, pneumothorax. I considered the following discharge prescriptions or medication management in the emergency department Medications were administered in the Emergency Department. See MAR. Historians other than the Patient: Parent: mother assists with HPI. Counseling: I had a detailed discussion with the patient and/or guardian regarding the historical points, exam findings, and any diagnostic results supporting the discharge/admit diagnosis, lab results, radiology results, to return to the emergency department if symptoms worsen or persist or if there are any questions or concerns that arise at home. Response to treatment: the patient's symptoms have markedly improved after treatment, and as a result, I will discharge patient. Special discussion: Based on the patient's history, exam, and Dx evaluation, there is no indication for emergent intervention or inpatient Tx. It is understood by the patient/guardian that if the Sx's persist or worsen they need to return immediately for re-evaluation. 03/21 18:44 Order name: Basic Metabolic Panel; Complete Time: 20:00 cp 03/21 20:01 Interpretation: Normal except: K 3.3; CL 109; GLUC 119. cp 03/21 18:44 Order name: CBC with Diff; Complete Time: 20:00 cp 03/21 18:44 Order name: Magnesium; Complete Time: 20:00 cp 03/21 18:44 Order name: PT-INR; Complete Time: 20:00 cp 03/21 18:44 Order name: Troponin HS; Complete Time: 20:00 cp 03/21 18:44 Order name: XRAY Chest (1 view); Complete Time: 20:01 cp 03/21 20:02 Interpretation: Report review. 03/21 18:44 Order name: EKG; Complete Time: 18:45 03/21 18:44 Order name: Cardiac monitoring; Complete Time: 19:14 cp 03/21 18:44 Order name: EKG - Nurse/Tech; Complete Time: 19:14 cp 03/21 18:44 Order name: IV Saline Lock; Complete Time: 19:19 03/21 18:44 Order name: Labs collected and sent; Complete Time: 19:19 cp 03/21 18:44 Order name: O2 Per Protocol; Complete Time: 19:19 cp 03/21 18:44 Order name: O2 Sat Monitoring; Complete Time: 19:19 EC:14 Rate is 98 beats/min. Rhythm is regular. MT interval is normal. QRS interval is normal. cp QT interval is normal. T waves are Inverted in lead aVR. Interpreted by me. Reviewed by me. Administered Medications: 19:23 Drug: Ketorolac IVP 15 mg Route: IVP; Site: right antecubital; sg5 20:09 Drug: fentaNYL (PF) IVP 25 mcg Route: IVP; Site: right antecubital; sg5 Disposition Summary: 03/21/23 20:48 Discharge Ordered Location: Home cp Problem: an ongoing problem cp Symptoms: have improved cp Condition: Stable cp Diagnosis - Chest pain, unspecified cp Followup: cp - With: Private Physician - When: 2 - 3 days - Reason: Recheck today's complaints Discharge Instructions: - Discharge Summary Sheet cp - Nonspecific Chest Pain, Adult cp Forms: - Medication Reconciliation Form cp - Thank You Letter cp - Antibiotic Education cp - Prescription Opioid Use cp - Patient Portal Instructions cp - Leadership Thank You Letter cp Prescriptions: - Ibuprofen 800 mg Oral Tablet - take 1 tablet by ORAL route every 8 hours As needed take with food; 30 tablet; cp Refills: 0, Product Selection Permitted Signatures: Dispatcher [employer] Antonia Douglas RN RN iw Page, Jake, PA PA cp Rivas, Christen, RN RN sg5
--- NOTE | 2023-03-21 20:48 | ER ---
Nurse's Notes [facility] Name: Manjinder Arrieta Age: 17 yrs Sex: Male : 2005 Arrival Date: 03/21/2023 Time: 18:17 Bed 19 Private MD: Diagnosis: Chest pain, unspecified Presentation: 03/21 18:30 Chief complaint: Patient states: chest pain radiating into left jaw and arm since 5 pm, iw also SOB , pain is constant 7/10 , feels like pressure , he sees Dr. Priest at [facility]. Coronavirus screen: At this time, the client does not indicate any symptoms associated with coronavirus-19. Ebola Screen: Patient negative for fever greater than or equal to 101.5 degrees Fahrenheit, and additional compatible Ebola Virus Disease symptoms Patient denies exposure to infectious person. Patient denies travel to an Ebola-affected area in the 21 days before illness onset. No symptoms or risks identified at this time. Initial Sepsis Screen: Does the patient meet any 2 criteria? No. Patient's initial sepsis screen is negative. Does the patient have a suspected source of infection? No. Patient's initial sepsis screen is negative. Risk Assessment: Do you want to hurt yourself or someone else? Patient reports no desire to harm self or others. Onset of symptoms was March 21, 2023. 18:30 Method Of Arrival: Wheelchair iw 18:30 Acuity: YESSY 3 iw Historical: - Allergies: 18:32 adhesive tape; iw 18:32 Adhesives; iw 18:32 Albuterol; iw 18:32 cefixime; iw 18:32 Clindamycin; iw 18:32 Latex, Natural Rubber; iw 18:32 montelukast; iw 18:32 Wirt (Prunus Persica); iw 18:32 PENICILLINS; iw 18:32 Prednisone; iw 18:32 Sulfa (Sulfonamide Antibiotics); iw 18:32 Suprax; iw 18:32 Vancomycin; iw - PMHx: 18:32 Anemia; Anxiety; Asthma; Autism; bacterial meningitis; Bipolar disorder; Depression; iw epillepsy; hepatosplegomegaly; Migraines; ADD/ADHD; - PSHx: 18:32 ear tubes; eye surgery; fundiplication; Splenectomy; tear duct surgeries; iw Tonsillectomy; Adenoid excision; - Immunization history:: Adult Immunizations up to date. - Social history:: Smoking status: Patient denies any tobacco usage or history of. Screenin:24 [facility] ED Fall Risk Assessment (Adult) History of falling in the last 3 months, sg5 including since admission No falls in past 3 months (0 pts). Abuse screen: Denies threats or abuse. Nutritional screening: No deficits noted. Tuberculosis screening: No symptoms or risk factors identified. Assessment: 19:24 General: Appears in no apparent distress. comfortable, Behavior is calm, cooperative, sg5 appropriate for age. Pain: Complains of pain in chest Pain radiates to left jaw Pain began 3 hours ago. Neuro: Level of Consciousness is awake, alert, obeys commands, Oriented to person, place, time, situation, Appropriate for age. Cardiovascular: Capillary refill < 3 seconds Patient's skin is warm and dry. Respiratory: Airway is patent Trachea midline Respiratory effort is even, unlabored, Respiratory pattern is regular, symmetrical. GI: Abdomen is flat, non-distended. : No signs and/or symptoms were reported regarding the genitourinary system. EENT: No signs and/or symptoms were reported regarding the EENT system. Derm: No signs and/or symptoms reported regarding the dermatologic system. Musculoskeletal: No signs and/or symptoms reported regarding the musculoskeletal system. Vital Signs: 18:30 BP 131 / 83; Pulse 100; Resp 16; Temp 98.8; Pulse Ox 99% on R/A; Weight 83.91 kg; iw Height 5 ft. 8 in. ; Pain 10/10; 19:26 BP 123 / 83; Pulse 100; Resp 18; Temp 98.8(O); Pulse Ox 100% on R/A; Pain 7/10; sg5 20:41 BP 124 / 79; Pulse 84; Resp 16; Pulse Ox 97% on R/A; Pain 3/10; sg5 18:30 Body Mass Index 28.13 (83.91 kg, 172.72 cm) iw 18:30 Pain Scale: Adult iw 19:26 Pain Scale: Adult sg5 20:41 Pain Scale: Adult sg5 ED Course: 18:20 Patient arrived in ED. im 18:22 Jake Hardy PA is PHCP. cp 18:22 Deanna Gee MD is Attending Physician. cp 18:32 Triage completed. iw 19:14 EKG done, by ED staff. 8 19:23 Christen Rivas, RN is Primary Nurse. sg5 19:23 Inserted saline lock: 20 gauge in right antecubital area, using aseptic technique. sg5 Blood collected. Patient maintains SpO2 saturation greater than 95% on room air. 19:24 Patient has correct armband on for positive identification. Bed in low position. Call sg5 light in reach. Side rails up X 1. Adult w/ patient. Valuables Left with patient. Client placed on continuous cardiac and pulse oximetry monitoring. NIBP monitoring applied. 19:48 XRAY Chest (1 view) In Process Unspecified. EDMS 21:15 No provider procedures requiring assistance completed. IV discontinued. sg5 21:15 Provided Education on: lab studies, EKG. sg5 21:16 Arm band placed on right wrist. sg5 Administered Medications: 19:23 Drug: Ketorolac IVP 15 mg Route: IVP; Site: right antecubital; sg5 20:09 Drug: fentaNYL (PF) IVP 25 mcg Route: IVP; Site: right antecubital; sg5 Medication: 21:16 VIS not applicable for this client. sg5 Outcome: 20:48 Discharge ordered by MD. cp 21:15 Discharged to home with family. sg5 21:15 Condition: good 21:15 Discharge instructions given to patient, family, Instructed on discharge instructions, follow up and referral plans. 21:16 Patient left the ED. sg5 Signatures: Dispatcher [employer] Antonia Douglas RN RN iw Jake Hardy PA PA cp Christen Rivas, PAYAM RN sg5 Hyacinth Schaeffer Scarlett 8 Corrections: (The following items were deleted from the chart) 18:33 18:30 BP 131 / 83; Pulse 16bpm; Resp 16bpm; Pulse Ox 99% RA; Temp 98.8F; 83.91 kg; iw Height 5 ft. 8 in.; BMI: 28.1; Pain 10/10, Adult; iw
[2023-03-21 21:47] VITALS: TEMP 98.8
[2023-03-21 21:49] VITALS: BP 124/79; O2SAT 97
--- NOTE | 2023-03-23 16:51 | EKG ---
Test Date: 2023-03-21 Test Time: 19:10:12 [id number] Operator: VANDA MEASUREMENT RESULTS: Intervals: Rate: 98 NV: 184 QRSD: 82 QT: 330 QTc: 421 [place]: P: 43 NV: 184 QRS: 54 T: 48 INTERPRETIVE STATEMENTS: Normal sinus rhythm Normal ECG Compared to ECG 03/05/2023 22:54:18 No significant changes Electronically Signed On 03-23-23 16:45:23 CDT by Dutch Chao
== END 2023-03-21 21:16 | disposition home or self-care (01) ==
LOC: ER 18:17
DX: R07.89 Other chest pain (principal); Z88.0 Allergy status to penicillin; Z88.1 Allergy status to other antibiotic agents; Z88.2 Allergy status to sulfonamides; Z88.3 Allergy status to other anti-infective agents; Z91.040 Latex allergy status; Z88.8 Allergy status to other drugs, medicaments and biological substances; Z91.048 Other nonmedicinal substance allergy status
CPT/HCPCS: 93005; 85025; 80048; 36415; 83735; 85610; 84484; 71045; 96375; 96374; 99285; J3010

== ENCOUNTER 2023-06-03 16:48 | Emergency (ER) | payer OTHER ==
--- OUTSIDE RECORDS SUMMARY | 2023-06-03 17:31 | XMS REPORT | Continuity of Care Document ---
:2005 Author Organization [facility] t Address [address] [place] [address]. [address] [place] [address] Care Team Providers Name Role Phone [place] Primary Care Physician Unavailable CHERISE MAURICE Attending Clinician Unavailable CHERISE MAURICE Attending Clinician Unavailable JOSE CHRISTOPHER Attending Clinician Unavailable YANCI MICHAEL Attending Clinician Unavailable YANCI MICHAEL Attending Clinician Unavailable MEGHAN ROSARIO Attending Clinician Unavailable Meghan Rosario MD Attending Clinician ANDREE OCAMPO Attending Clinician Unavailable Andree Larsen Attending Clinician Doctor Unassigned, [place] Attending Clinician Unavailable ADELINE MCDUFFIE Attending Clinician Unavailable ADELINE MCDUFFIE Attending Clinician Unavailable FAITH WHITE Attending Clinician Unavailable Faith White DO Attending Clinician Christian MORE Nikidhruv Attending Clinician Colleen VARMA Attending Clinician Unavailable Colleen Maddox Attending Clinician Yamil Gandara MD Attending Clinician BARRIE MALHOTRA S Attending Clinician Unavailable MIL PRIETO Attending Clinician Unavailable Severo SPARE PERSON, Mil Attending Clinician Ashwin ADEN, Jose S Attending Clinician Roscoe NATION, Barrie S Attending Clinician Jakob Mcfarland DO Attending Clinician Cem ADEN, Christiano Attending Clinician ARSALAN GRANT Attending Clinician Unavailable Arsalan Grant MD Attending Clinician SACHIN CARVAJAL Attending Clinician Unavailable Sachin Vital Attending Clinician HANNAH VENTURA Attending Clinician Unavailable Hannah Ventura MD Attending Clinician Pob, [facility] Attending Clinician Unavailable Sarbjit Kee MD Attending Clinician SURY DSOUZA Attending Clinician Unavailable Sury Shirley S Attending Clinician CHRISTIANO DAVIS Attending Clinician Unavailable TYRON NUÑEZ Attending Clinician Unavailable Tyron Nuñez DO Attending Clinician Pankaj Garrett MD Attending Clinician PANKAJ GARRETT Attending Clinician Unavailable ANJALI WISDOM Attending Clinician Unavailable Anjali Wisdom PA-C Attending Clinician Wendy Anand Attending Clinician 1, [facility] [employer] Attending Clinician Unavailable Angel Mar, Fadumo Orozco Attending Clinician Delmar Esteban PT, Nano Attending Clinician Unavailable Beena Ramirez MD Attending Clinician BEENA RAMIREZ Attending Clinician Unavailable [facility] Attending Clinician Unavailable Parrish Rosenberg MD Attending Clinician Sheng Vasquez MD Attending Clinician SHENG VASQUEZ Attending Clinician Unavailable MG FRYE Attending Clinician Unavailable MG FRYE Attending Clinician Unavailable Yong Strauss RN, Marry Attending Clinician Unavailable PITA MALHOTRA Attending Clinician Unavailable Pita Malhotra MD Attending Clinician Lary HARE, Jose Carlos Lozada Attending Clinician Unavailable RUBEN BELCHER F Attending Clinician Unavailable Iblupe OLIVEROS, Ruben F Attending Clinician HANK OSHEA Attending Clinician Unavailable SHRUTHI SANTIAGO Attending Clinician Unavailable YAMIL GANDAAR Attending Clinician Unavailable Estefania VIRAMONTES MD, Steve Quinn Attending Clinician [phone] ROBERT GLORIA Attending Clinician Unavailable Robert Gloria MD Attending Clinician JUNIOR LEAHY Attending Clinician Unavailable Junior Leahy MD Attending Clinician Felix Morelos MD Attending Clinician [phone] Zana Thompson MD Attending Clinician Nurse, Namrata Moyer Attending Clinician Unavailable NEGIN RUST Attending Clinician Unavailable BOB OSMAN Attending Clinician Unavailable ULYSSES CASTRO Attending Clinician Unavailable ADELINE MCDUFFIE Admitting Clinician Unavailable CHERISE MAURICE Admitting Clinician Unavailable Colleen VARMA Admitting Clinician Unavailable MIL PRIETO Admitting Clinician Unavailable ARSALAN GRNAT Admitting Clinician Unavailable HANNAH VENTURA Admitting Clinician Unavailable Hannah Ventura MD Admitting Clinician ADELAIDA MAIN Admitting Clinician Unavailable JOSE CHRISTOPHER Admitting Clinician Unavailable TYRON NUÑEZ Admitting Clinician Unavailable CHRISTIANO DAVIS Admitting Clinician Unavailable MG FRYE Admitting Clinician Unavailable PITA MALHOTRA Admitting Clinician Unavailable RUBEN BELCHER Admitting Clinician Unavailable ROBERT GLORIA Admitting Clinician Unavailable MEGHAN ROSARIO Admitting Clinician Unavailable Payers Payer Name Policy Type Policy Number Effective Date Expiration Date Roderick ROSA [id number] 2022 KIDS 00:00:00 [facility] KIDS [id number] 2022 00:00:00 Problems Condition Condition Condition Status Onset Resolution Last Treating Co mments Source Name Details Category Date Date Treatment Clinician Date Palpitatio Palpitatio Disease Active U nivers ns ns 7-13 ity of 00:00: [address] Syncope Syncope Disease Active Univers and and 7-13 ity of collapse collapse 00:00: [address] Abnormal Abnormal Disease Active [facility] liver [facility] enzymes enzymes 00:00: t & Plan: Medic al 00 [facility] g of this note might be different [...] 25.0-29.9) 25.0-29.9) 00:00: t & Plan: Medical [address] [place] [address] g of this note might be different from the original. Body mass index is 27.49 kg/m2. We discussed the importanc e of weight loss with a low carbohydr ate, high protein diet. Immunity Immunity Disease Active Last [facility] status status 04-10 [facility] testing testing 00:00: t & Plan: Medic al 00 [facility] g of this note might be different [...] c rhinitis 0-15 it y of 00:00: [address] Branch History of History of Disease Active U nivers itching of itching of 2-20 it y of eye eye 00:00: [place] [facility] History of History of Disease Active U nivers itching of itching of 2-20 it y of eye eye 00:00: [place] 00 [facility] DMDD DMDD Disease Active Univers (disruptiv (disruptiv 9-16 it y of e mood e mood 00:00: [place] dysregulat dysregulat 00 Me dical ion ion Branch disorder) disorder) 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 00:00: [place] [facility] Irritabili Irritabili Disease Active U nivers ty ty 1-11 ity of 00:00: [place] [facility] PDA PDA Disease Active Univers [...] (had seizure like activity) D/c strattera (stomacha ches)04-18-14 Restart Risperdal .25 mg BID and keep [...] to 100 mg qHS for morning groggines [id number] Decrease dose of Cyprohept adine (either half [...] issues resolve with above, do not start Nzigli63- 12-15 Hold zoloft; stop Buspar: possible tachycard [id number] 5 Restart Buspar 7.5 BID (Heart rate no better off it and anxiety worse) Trial reduction Risperida l to 1/2 of .25mg BID Trial Remeron 15mg HS Trial remeron 15mg [id number] 5 Raise Risperdal back to .25mg BID [...] Remeron 15mg Continue Lexapro 30mg Continue Kapvay 0.6hb6-88 Increase zoloft to 50mg after school Decrease lexapro to 20mg 016 Stop Lexapro 20 mg Increase Abilify to 10 mg daily Increase Buspar to 15 mg BID Increase Kapvay to 0.1-0.2 mg QHS 02/12/16 Start amantidin e 100mg BID Stop abilify 10mg04/29 Move Risperdal 0.25 mg dose up to give at [id number] 06-24-16 Increase Risperdas l to .5mg BID 7 Increase Amantadin e to 15ml BID (not done last time) Increase Risperdal to .75 BID Reduce abilify to 3gg1-8-3 Amantidin e 150mg BID Increase Zoloft to [...] 4-18 ity of DEVELOPMEN DEVELOPMEN 00:00: [place] KENDRA KENDRA 00 Medical Branch Hallucinat Hallucinat [...] different from the original. ICD10 Diagnosis Term Family Law Attorney Utility Adj.dis.mi Adj.dis.mi Disease Active U nivers [...] different from the original. ICD10 Diagnosis Term Family Law Attorney Utility Pain in Pain in Disease Active Univers joint, joint, 4-06 [place] of [place] Pain in Pain in Disease Active Univers joint, joint, 4-06 [place] of [place] [facility] [place] Apnea Apnea Disease Active 2006-07 Univers 1-02 ity of 00:00: [place] 00 [facility] Other Other Disease Active Overview: Wil linda specified specified 7-10 Formattin i ty of delay in delay in 00:00: g of this [place] as developmen developmen 00 note Me dical t t might be Branch different from the original. clumsy Other Other Disease Active Overview: Wil linda problems problems 7-10 Formattin ity of related to related to 00:00: g of this [place] lifestyle lifestyle 00 note Medi cherie might be Branch different from the original. 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 ICD10 Diagnosis Term Family Law Attorney Utility Asthma Asthma Disease Active Overview: Wil linda 7-03 Formattin ity of 00:00: g of this [place] 00 note Medical might be Branch different from the original. Mild persistan tICD10 Diagnosis Term Family Law Attorney Utility Allergic Allergic Disease Active Overview: Un glen rhinitis rhinitis 01-18 Formattin ity of 00:00: g of this note Medical might be Branch different from the original. ICD10 Diagnosis Term Family Law Attorney Utility Sleep Sleep Disease Active Overview: Univer s apnea apnea 10-13 Formattin ity of 00:00: g of this note Medical might be Branch different from the original. ICD10 Diagnosis Term Family Law Attorney Utility Sinusitis, Sinusitis, Disease Active Overview : Univers chronic chronic 10-13 Formattin ity o f 00:00: g of this note Medical might be Branch different from the original. ICD10 Diagnosis Term Family Law Attorney Utility Allergies, Adverse Reactions, Alerts Allergy Allergy Status Severity Reaction(s) Onset Inactive Treating Comm ents Source Name Type Date Date Clinician ADHESIVE Drug Active Rash 2022- Univers Class 5-19 ity of 00:00: [place] 00 [facility] Branch Adhesive Propensi Active Rash ECG Univer s ty to 5 electrode ity of adverse 00:00: patches [place] reaction 00 with Medical s heart Branch monitor MONTELUK DRUG Active Other-Cmnt 2021-07 Univ ers AST INGREDI 1-10 ity of 00:00: [place] 00 Medical Branch Monteluk Propensi Active Other - See 2021-07 Aggressi v Univers ast ty to comments 1-10 e ity of adverse 00:00: [place] reaction 00 Medical s Branch VANCOMYC DRUG Active Low Rash 2021-0 Univers IN INGREDI 2-03 ity of 00:00: [place] 00 Medical Branch Vancomyc Propensi Active Rash 2021-0 Allergy Unive rs in ty to 2-03 Type: ity of adverse 00:00: ?Medicati [place] reaction 00 onCurrent Medic al s Treatment Branch & Notes: Can have vancomyci n, but needs to be run over 2 hours with benadryl. [place]/redn ess to face and neck; run over 2 hours MONTELUK Allergy Active 2020-[address] [facility] 8[facility]17 [facility] Medical 00 Center [place] Drug Active Other [facility] Allergy 8-17 reaction( [facility] 00:00: s): Medical 00 [facility]ly [facility] /Barney Bailey on - did not tolerate ALBUTERO Allergy Active Low Palpitations 2019-[address] L 08-18 [facility] 00:[facility]: Medical 00 Center Albutero Drug Active Palpitations 2019-[address] [facility] Allergy 08-18 xopenex [facility] 00:00: better Medical 00 Center ALBUTERO DRUG Active Med Palpitations 2019- Un glen L INGREDI 08-18 ity of 00:00: [place] 00 Medical Branch Clindamy Propensi Active Shortness of 2018-07 Univers cecilia ty to Breath 0-07 ity of adverse 00:00: [place] reaction 00 Medical s Branch CLINDAMY DRUG Active Med Rash 2018-07 Univers CECILIA INGREDI 0-07 ity of 00:00: [place] 00 Medical Branch Predniso Propensi Active Rash Univer s ne ty to 5-03 ity of adverse 00:00: [place] reaction 00 Medical s Branch PREDNISO DRUG Active Rash 2016- Univers NE INGREDI 5-03 ity of 00:00: [place] 00 Medical Branch PREDNISO Allergy Active High Rash [facility] 4-20 [facility] Medical 00 Center Predniso Drug Active Rash [address] [facility] ne Allergy 4-20 [facility] 00:[facility]: Medical 00 Center SULFA Allergy Active High Anaphylaxis [address] [facility] (SULFONA 8-28 [facility] MIDE 00:00: Medical ANTIBIOT 00 Center ICS) Sulfa Drug Active Anaphylaxis Informed [facility] (Sulfona Allergy 8-28 by [facility] mide 00:00: parents Medical Antibiot 00 Center ics) Sulfa Drug Active Anaphylaxis [address] (Sulfona Allergy 8-28 by [...] Medica l ics) s to Branch drug CEFIXIME Allergy Active High Swelling 2009-0 [facility] 3[facility]05 [facility] Medical 00 Center Cefixime Drug Active Swelling, Goes into [facility] Allergy Shortness Of 3-05 shock Ignacio es Breath 00:00: Medical 00 Center Cefixime Propensi Active Swelling 0 Univ ers ty to 3-05 ity of adverse 00:00: [place] reaction 00 Medical s Branch CEFIXIME DRUG Active Swelling Univer s INGREDI 3-05 ity of 00:00: [place] 00 Medical Branch PEACH Allergy Active 2006-[address] [facility] 0-18 [facility] 00:[facility]: Medical 00 Center Spink Drug Active 2006-[address] Allergy 0-18 reaction( [facility] 00:00: s): Medical 00 Unknown - Center See comments Spink Propensi Active Unknown - 2006-07 Unive rs ty to See comments 0-18 ity of adverse 00:00: [place] reaction 00 Medical s Branch PEACH DRUG Active Unknown-Cmnt 2006-07 Univ ers INGREDI 0-18 ity of 00:00: [place] 00 Medical Branch ADHESIVE Allergy Active [facility] TAPE 7-10 [facility] 00:[facility]: Medical 00 Center Adhesive Drug Active Other [facility] Tape Allergy 7-10 reaction( [facility] 00:00: s): Medical 00 Unknown - Center See comments Adhesive Propensi Active Unknown - Uni vers Tape ty to See comments 7-10 ity of adverse 00:00: [place] reaction 00 Medical s Branch ADHESIVE DRUG Active Unknown-Cmnt Un glen TAPE 7-10 ity of 00:00: [place] 00 Medical Branch PENICILL Allergy Active High Sob 2004-[address] [facility] INS 3-28 [facility] 00:00: Medical 00 Center LATEX Allergy Active Low Rash 2004-[address] [facility] 3-28 [facility] 00:00: Medical 00 Center Penicill Drug Active Shortness Of [address] [facility] ins Allergy Breath 3-28 shock [facility] 00:00: Medical 00 Center Latex Drug Active Rash 2004-[address] [facility] Allergy 3-28 [facility] 00:00: Medical 00 Center Penicill Drug Active Shortness Of [address] [facility] ins Allergy Breath 3-28 shock [facility] 00:00: Medical 00 Center Latex Propensi Active 2004-0 Univers ty to 3-28 ity of adverse 00:00: [place] reaction 00 Medical s Branch Penicill Propensi Active Univer s ins ty to 3 ity of adverse 00:00: [place] reaction 00 Medical s Branch Pollen Propensi Active Univers Extracts ty to 3 ity of adverse 00:00: [place] reaction 00 Medical s Branch LATEX DRUG Active Univers INGREDI 3 ity of 00:00: [place] 00 Medical Branch PENICILL Drug Active Univers INS Class 3- ity of 00:00: [place] 00 Medical Branch POLLEN DRUG Active Univers EXTRACTS INGREDI 10-13 ity of 00:00: [place] 00 Medical Branch Penicill Propensi Active Univer s ins ty to 10-13 ity of adverse 00:00: [place] reaction 00 Medical [facility] Family History Family Member Diagnosis Comments Start Date Stop Date Source Natural father Depression [facility] Natural father Depression [facility] Natural mother Asthma [facility] Natural mother Heart disease [facility] Natural mother Hypertension [facility] Natural mother Asthma [facility] Social History Social Habit Start Date Stop Date Quantity Comments Source History SDOH [facility] Alcohol Std Drinks Medica l Center History SDOH [facility] Alcohol Binge Medical [facility] History SDOH [facility] Alcohol Comment Medical C enter Gender identity Universit y of [facility] Sexual orientation [facility] History of Social 2023-01-18 2023-01-18 Univers ity of function 00:00:00 00:00:00 [facility] Exposure to 2022-12-10 2022-12-20 Not sure University of SARS-CoV-2 (event) 00:00:00 15:07:00 [facility] History SDOH 2022-04-08 2022-04-[address] [facility] Alcohol Frequency 00:00:00 00:00:[address] [facility] Tobacco use and 2022-04-08 2022-04-[address] Cristiane kes exposure 00:00:00 00:00:00 tobacco non-user [facility] Alcohol intake 2022-04-08 2022-04-[address] Ignacio es 00:00:00 00:00:00 non-drinker Medical Cente r (finding) Sex Assigned At [birth year] [facility] [place] 00:00:00 00:00:00 Medical Center Smoking Status Start Date Stop Date Source Never smoked tobacco [facility] Medications Ordered Filled Start Stop Current Ordering Indication Dosage Frequency Signature Comments Components Source Medication Medication Date Date Medication? Clinician (SIG) Name Name carmen 2022-07 Yes [id number] 500mg Take 12.5 Univers n 200 mg/5 1-13 mL by ity of mL 00:00: mouth [place] suspension 00 every 24 Medic al (twenty-fo Branch ur) hours. dextrometho 2022-07 Yes [id number] 10mL Take 10 mL Univers rphan-guaif 1-13 by mouth ity of enesin 00:00: every 6 [place] 10-100 mg/5 00 (six) Medical mL solution hours as Bran ch needed for Cough. acetaminoph 2022- No 1000mg 1,000 mg, Univers en 03-20 Oral, ity of (TYLENOL) 06:30: 06:30 ONCE, 1 [place] tablet 00 :00 dose, On Medical 1,000 mg 03/20/23 Branc h at 0130, Routine NaCl 0.9% 2022- No 1000mL at 999 Uni vers (NS) bolus 03-20 mL/hr, ity of infusion 06:00: 07:56 1,000 mL, [place] 1,000 mL 00 :00 IV Medical Piggyback, Branch ONCE, 1 dose, On 03/20/23 at 0100, STAT ibuprofen 2022- No 400mg 400 mg, Uni vers (IBU) 03-20 Oral, ity of tablet 400 05:30: 05:45 ONCE, 1 [place] as mg 00 :00 dose, On Medical 03/20/23 Branch at 0030, LESLIE ketorolac 2022- No 15mg 15 mg, Unive rs (TORADOL) 03-20 Slow IV ity of injection 04:30: 04:20 Push, [place] 15 mg 00 :00 ONCE, 1 Medical dose, On Branch 03/19/23 at 2330, Routine NaCl 0.9% 2022- No 1000mL at 999 Uni vers (NS) bolus 03-20 09-02 mL/hr, ity of infusion 04:30: 05:35 1,000 mL, [place] as 1,000 mL 00 :00 IV Medical Infusion, Branch ONCE, 1 dose, On Wed03/19/23 at 2330, LESLIE NaCl 0.9% 2022- No 1000mL at [...] Medical dose, On Branch Wed03/09/23 at 1930, LESLIE ibuprofen 2022- Yes [id number] 600mg Take 30 mL Univers 100 mg/5 mL 03-09 by mouth ity of oral 00:00: 04:59 every 8 [place] suspension 00 :00 (eight) Medica l hours for Branch 5 days. ibuprofen 2022- Yes [id number] 600mg Take 30 mL Univers 100 mg/5 mL 03-09 by mouth ity of oral 00:00: 04:59 every 8 [place] suspension 00 :00 (eight) Medica l hours for Branch 5 days. ibuprofen 2022- Yes [id number] 600mg Take 30 mL Univers 100 mg/5 mL 03-09 by mouth ity of oral 00:00: 04:59 every 8 [place] suspension 00 :00 (eight) Medica l hours for Branch 5 days. ibuprofen 2022- Yes [id number] 600mg Take 30 mL Univers 100 mg/5 mL 03-09 by mouth ity of oral 00:00: 04:59 every 8 [place] suspension 00 :00 (eight) Medica l hours for Branch 5 days. midazolam 0 Yes [id number] 1{spray Use 1 Univers (NAYZILAM) 03-08 } [place] ity of 5 mg/spray 00:00: nostril [place] (0.1 mL) 00 SEE-INSTRU Medic al [place] CTIONS. 1 Branch spray in ONE nostril [...] episodes in a month. midazolam 0 Yes [id number] 1{spray Use 1 Univers (NAYZILAM) 8-21 } [place] ity of 5 mg/spray 00:00: nostril [place] (0.1 mL) 00 SEE-INSTRU Medic al [place] CTIONS. 1 Branch spray in ONE nostril [...] 5 episodes in a month. midazolam Yes [id number] 1{spray Use 1 Univers (NAYZILAM) 8-21 } [place] ity of 5 mg/spray 00:00: nostril [place] (0.1 mL) 00 SEE-INSTRU Medic al [place] CTIONS. 1 Branch spray in ONE nostril [...] episodes in a month. midazolam 0 Yes [id number] 1{spray Use 1 Univers (NAYZILAM) 8-21 } [place] ity of 5 mg/spray 00:00: nostril [place] (0.1 mL) 00 SEE-INSTRU Medic al [place] CTIONS. 1 Branch spray in ONE nostril [...] 5 episodes in a month. midazolam Yes [id number] 1{spray Use 1 Univers (NAYZILAM) 8-21 } [place] ity of 5 mg/spray 00:00: nostril [place] (0.1 mL) 00 SEE-INSTRU Medic al [place] CTIONS. 1 Branch spray in ONE nostril [...] 5 episodes in a month. midazolam Yes [id number] 1{spray Use 1 Univers (NAYZILAM) 8-21 } [place] ity of 5 mg/spray 00:00: nostril [place] (0.1 mL) 00 SEE-INSTRU Medic al [place] CTIONS. 1 Branch spray in ONE nostril [...] 5 episodes in a month. midazolam Yes [id number] 1{spray Use 1 Univers (NAYZILAM) 8-21 } [place] ity of 5 mg/spray 00:00: nostril [place] (0.1 mL) 00 SEE-INSTRU Medic al [place] CTIONS. 1 Branch spray in ONE nostril [...] 5 episodes in a month. midazolam Yes [id number] 1{spray Use 1 Univers (NAYZILAM) 8-21 } [place] ity of 5 mg/spray 00:00: nostril [place] (0.1 mL) 00 SEE-INSTRU Medic al [place] CTIONS. 1 Branch spray in ONE nostril [...] episodes in a month. midazolam 0 Yes [id number] 1{spray Use 1 Univers (NAYZILAM) 8-21 } [place] 1 ity of 5 mg/spray 00:00: nostril [place] (0.1 mL) 00 SEE-INSTRU Medic al [place] CTIONS. 1 Branch spray in ONE nostril [...] 5 episodes in a month. midazolam Yes [id number] 1{spray Use 1 Univers (NAYZILAM) 8-21 } [place] 1 ity of 5 mg/spray 00:00: nostril [place] (0.1 mL) 00 SEE-INSTRU Medic al [place] CTIONS. 1 Branch spray in ONE nostril [...] 5 episodes in a month. midazolam Yes [id number] 1{spray Use 1 Univers (NAYZILAM) 8-21 } [place] ity of 5 mg/spray 00:00: nostril [place] (0.1 mL) 00 SEE-INSTRU Medic al [place] CTIONS. 1 Branch spray in ONE nostril [...] 5 episodes in a month. midazolam Yes [id number] 1{spray Use 1 Univers (NAYZILAM) 8-21 } [place] 1 ity of 5 mg/spray 00:00: nostril [place] (0.1 mL) 00 SEE-INSTRU Medic al [place] CTIONS. 1 Branch spray in ONE nostril [...] 5 episodes in a month. midazolam Yes [id number] 1{spray Use 1 Univers (NAYZILAM) 8-21 } [place] 1 ity of 5 mg/spray 00:00: nostril [place] (0.1 mL) 00 SEE-INSTRU Medic al [place] CTIONS. 1 Branch spray in ONE nostril [...] 5 episodes in a month. midazolam Yes [id number] 1{spray Use 1 Univers (NAYZILAM) 8-21 } [place] 1 ity of 5 mg/spray 00:00: nostril [place] (0.1 mL) 00 SEE-INSTRU Medic al [place] CTIONS. 1 Branch spray in ONE nostril [...] episodes in a month. midazolam 0 Yes [id number] 1{spray Use 1 Univers (NAYZILAM) 8-21 } [place] 1 ity of 5 mg/spray 00:00: nostril [place] (0.1 mL) 00 SEE-INSTRU Medic al [place] CTIONS. 1 Branch spray in ONE nostril [...] episodes in a month. midazolam 2022-0 Yes [id number] 1{spray Use 1 Univers (NAYZILAM) 8-21 } [place] 1 ity of 5 mg/spray 00:00: nostril [place] (0.1 mL) 00 SEE-INSTRU Medic al [place] CTIONS. 1 Branch spray in ONE nostril [...] episodes in a month. midazolam 0 Yes [id number] 1{spray Use 1 Univers (NAYZILAM) 8-21 } [place] 1 ity of 5 mg/spray 00:00: nostril [place] (0.1 mL) 00 SEE-INSTRU Medic al [place] CTIONS. 1 Branch spray in ONE nostril [...] than 5 episodes in a month. ketorolac 0 2022- No 30mg 30 mg, Unive rs (TORADOL) 8-16 08-16 Slow IV ity of injection 21:00: 20:11 [place], [place] 30 mg 00 :00 ONCE, 1 Medical dose, On Branch 03/03/23 at 1600, LESLIE ceFAZolin 2022- No ONCE INTRA U nivers (ANCEF) 02-23 PROCEDURE, ity o f injection 14:08: 14:14 Starting [place] as 25 :20 on [facility] 02/23/23 at Branch 0908, Until Wed02/23/23 at 0914, LESLIE, CV Intraproce dure ceFAZolin 2022- No ONCE INTRA U nivers (ANCEF) 02-23 PROCEDURE, ity o f injection 14:08: 14:14 Starting [place] as 25 :20 on [facility] 02/23/23 at Branch 0908, Until Wed02/23/23 at 0914, LESLIE, CV Intraproce dure lidocaine 2022- No ONCE INTRA U nivers 1% (PF) 02-23 PROCEDURE, ity o f (XYLOCAINE) 14:06: 14:14 Starting [place] injection 04 :20 on [facility] 02/23/23 at Branch 0906, Until Wed02/23/23 at 0914, Routine, CV Intraproce dure lidocaine 2022- No ONCE INTRA U nivers 1% (PF) 02-23 PROCEDURE, ity o f (XYLOCAINE) 14:06: 14:14 Starting [place] injection 04 :20 on [facility] 02/23/23 at Branch 0906, Until Wed02/23/23 at 0914, Routine, CV Intraproce dure triamcinolo Yes Apply to Un glen ne 0.1% in 02-23 affected ity o f aquaphor 11:06: area(s). [place] (COMPOUNDED [address] [place] [address] ) ointment Branch ARIPiprazol Yes by Wil s e (ABILILiliana 02-23 [facility] of [facility]) 11:06: lar route Morales as 300 mg sers 27 once every Me dical month. Branch cariprazine Yes 1{capsu Take 1 U nivers (VRAYLAR) 3 02-23 le} capsule by it y of mg Cap 11:06: mouth in [place] [address] the Medical morning Branch and 1 capsule in the evening. triamcinolo 2022-0 Yes Apply to [place] 0.1% in 8-08 affected ity o f aquaphor 11:06: area(s). [place] ([address] ) ointment Branch ARIPiprazol 2022-0 Yes by Univer s e (ABILIFY 8-08 [facility]) 11:06: lar route [place] as 300 mg sers 27 once every Me dical month. Branch cariprazine 2022-0 Yes 1{capsu Take 1 U nivers (VRAYLAR) 3 8-08 le} capsule by it y of mg Cap 11:06: mouth in [place] [address] the Medical morning Branch and 1 capsule in the evening. triamcinolo 2022-0 Yes Apply to [place] 0.1% in 808 affected ity o f aquaphor 11:06: area(s). [place] ([address] ) ointment Branch ARIPiprazol 2022-0 Yes by Univer s e (ABILIFY 8-08 [facility] of [facility]) 11:06: lar route [place] as 300 mg sers 27 once every Me dical month. Branch cariprazine 2022-0 Yes 1{capsu Take 1 U nivers (VRAYLAR) 3 8-08 le} capsule by it y of mg Cap 11:06: mouth in [place] [address] the Medical morning Branch and 1 capsule in the evening. triamcinolo 2022-0 Yes Apply to [place] 0.1% in 808 affected ity o f aquaphor 11:06: area(s). [place] ([facility] ) ointment Branch ARIPiprazol 2022-0 Yes by Univer s e (ABILIFY 8-08 [facility] of [facility]) 11:06: lar route [place] as 300 mg sers 27 once every Me dical month. Branch cariprazine 2022-0 Yes 1{capsu Take 1 U nivers (VRAYLAR) 3 8-08 le} capsule by it y of mg Cap 11:06: mouth in [place] [address] the Medical morning Branch and 1 capsule in the evening. triamcinolo 2023-0 Yes Apply to [place] 0.1% in 08 affected ity o f aquaphor 11:06: area(s). [place] ([facility] ) ointment Branch ARIPiprazol 2022-0 Yes by Univer s e (ABILIFY 02-23 [facility] of [facility]) 11:06: lar route [place] as 300 mg sers 27 once every Me dical month. Branch cariprazine 2022-0 Yes 1{capsu Take 1 U nivers (VRAYLAR) 3 8-08 le} capsule by it y of mg Cap 11:06: mouth in [place] [address] the Medical morning Branch and 1 capsule in the evening. triamcinolo 2022-0 Yes Apply to [place] 0.1% in 02-23 affected ity o f aquaphor 11:06: area(s). [place] ([facility] ) ointment Branch ARIPiprazol 2022-0 Yes by Univer s e (ABILIFY 02-23 [facility] of [facility]) 11:06: lar route [place] as 300 mg sers 27 once every Me dical month. Branch cariprazine 2022-0 Yes 1{capsu Take 1 U nivers (VRAYLAR) 3 8-08 le} capsule by it y of mg Cap 11:06: mouth in [place] [address] the Medical morning Branch and 1 capsule in the evening. triamcinolo 2022-0 Yes Apply to [place] 0.1% in 02-23 affected ity o f aquaphor 11:06: area(s). [place] ([facility] ) ointment Branch ARIPiprazol 2022-0 Yes by Univer s e (ABILIFY 02-23 [facility]) 11:06: lar route [place] as 300 mg sers 27 once every Me dical month. Branch cariprazine 2022-0 Yes 1{capsu Take 1 U nivers (VRAYLAR) 3 8-08 le} capsule by it y of mg Cap 11:06: mouth in [place] [address] the Medical morning Branch and 1 capsule in the evening. triamcinolo 2022-0 Yes Apply to [place] 0.1% in 808 affected ity o f aquaphor 11:06: area(s). [place] ([facility] ) ointment Branch ARIPiprazol 2022-0 Yes by Univer s e (ABILIFY 8- [facility] of [facility]) 11:06: lar route [place] as 300 mg sers 27 once every Me dical month. Branch cariprazine 2022-0 Yes 1{capsu Take 1 U nivers (VRAYLAR) 3 8-08 le} capsule by it y of mg Cap 11:06: mouth in [place] [address] the Medical morning Branch and 1 capsule in the evening. triamcinolo 2022-0 Yes Apply to [place] 0.1% in 8-08 affected ity o f aquaphor 11:06: area(s). [place] ([facility] ) ointment Branch ARIPiprazol 2022-0 Yes by Univer s e (ABILIFY 8-08 [facility] of [facility]) 11:06: lar route [place] as 300 mg sers 27 once every Me dical month. Branch cariprazine 2022-0 Yes 1{capsu Take 1 U nivers (VRAYLAR) 3 8-08 le} capsule by it y of mg Cap 11:06: mouth in [place] [address] the Medical morning Branch and 1 capsule in the evening. triamcinolo 2022-0 Yes Apply to [place] 0.1% in 8-08 affected ity o f aquaphor 11:06: area(s). [place] ([facility] ) ointment Branch ARIPiprazol 2022-0 Yes by Univer s e (ABILIFY 8 [facility]) 11:06: lar route [place] as 300 mg sers 27 once every Me dical month. Branch cariprazine 2022-0 Yes 1{capsu Take 1 U nivers (VRAYLAR) 3 8-08 le} capsule by it y of mg Cap 11:06: mouth in [place] [address] the Medical morning Branch and 1 capsule in the evening. triamcinolo 2022-0 Yes Apply to [place] 0.1% in 8-08 affected ity o f aquaphor 11:06: area(s). [place] ([facility] ) ointment Branch ARIPiprazol 2022-0 Yes by Univer s e (ABILIFY 8 [facility] of [facility]) 11:06: lar route [place] as 300 mg sers 27 once every Me dical month. Branch cariprazine 2022-0 Yes 1{capsu Take 1 U nivers (VRAYLAR) 3 8-08 le} capsule by it y of mg Cap 11:06: mouth in [place] [address] the Medical morning Branch and 1 capsule in the evening. triamcinolo 2022-0 Yes Apply to [place] 0.1% in 8-08 affected ity o f aquaphor 11:06: area(s). [place] ([facility] ) ointment Branch ARIPiprazol 2022-0 Yes by Univer s e (ABILIFY 02-23 [facility]) 11:06: lar route [place]ales as 300 mg sers 27 once every Me dical month. Branch cariprazine 2022-0 Yes 1{capsu Take 1 U nivers (VRAYLAR) 3 8-08 le} capsule by it y of mg Cap 11:06: mouth in [place] [address] the Medical morning Branch and 1 capsule in the evening. triamcinolo 2022-0 Yes Apply to [place] 0.1% in 8-08 affected ity o f aquaphor 11:06: area(s). [place] ([facility] ) ointment Branch ARIPiprazol 2022-0 Yes by Univer s e (ABILIFY 02-23 [facility]) 11:06: lar route [place] as 300 mg sers 27 once every Me dical month. Branch cariprazine 2022-0 Yes 1{capsu Take 1 U nivers (VRAYLAR) 3 8-08 le} capsule by it y of mg Cap 11:06: mouth in [place] [address] the Medical morning Branch and 1 capsule in the evening. triamcinolo 2022-0 Yes Apply to [place] 0.1% in 8-08 affected ity o f aquaphor 11:06: area(s). [place] ([facility] ) ointment Branch ARIPiprazol 2022-0 Yes by Univer s e (ABILIFY 8-08 [facility] of [facility]) 11:06: lar route [place] as 300 mg sers 27 once every Me dical month. Branch cariprazine 2022-0 Yes 1{capsu Take 1 U nivers (VRAYLAR) 3 8-08 le} capsule by it y of mg Cap 11:06: mouth in [place] [address] the Medical morning Branch and 1 capsule in the evening. triamcinolo 2022-0 Yes Apply to [place] 0.1% in 8-08 affected ity o f aquaphor 11:06: area(s). [place] ([facility] ) ointment Branch ARIPiprazol 2022-0 Yes by Univer s e (ABILIFY 808 Intr[facility] of [facility]) 11:06: lar route [place]ales as 300 mg sers 27 once every Me dical month. Branch cariprazine 2022-0 Yes 1{capsu Take 1 U nivers (VRAYLAR) 3 8-08 le} capsule by it y of mg Cap 11:06: mouth in [place] [address] the Medical morning Branch and 1 capsule in the evening. triamcinolo 2022-0 Yes Apply to [place] 0.1% in 8-08 affected ity o f aquaphor 11:06: area(s). [place] ([place] [address] Medical ) ointment Branch ARIPiprazol 2022-0 Yes by Univer s e (ABILIFY 8 [facility] of [facility]) 11:06: lar route Morales as 300 mg sers 27 once every Me dical month. Branch cariprazine 2022-0 Yes 1{capsu Take 1 U nivers (VRAYLAR) 3 8-08 le} capsule by it y of mg Cap 11:06: mouth in [place] [address] the Medical morning Branch and 1 capsule in the evening. triamcinolo 2022-0 Yes Apply to [place] 0.1% in 8-08 affected ity o f aquaphor 11:06: area(s). [place] ([facility] ) ointment Branch ARIPiprazol 2022-0 Yes by Univer s e (ABILIFY 8 [facility] of [facility]) 11:06: lar route Morales as 300 mg sers 27 once every Me dical month. Branch cariprazine 2022-0 Yes 1{capsu Take 1 U nivers (VRAYLAR) 3 8-08 le} capsule by it y of mg Cap 11:06: mouth in [place] [address] the Medical morning Branch and 1 capsule in the evening. triamcinolo 2022-0 Yes Apply to [place] 0.1% in 8-08 affected ity o f aquaphor 11:06: area(s). [place] ([facility] ) ointment Branch ARIPiprazol 2022-0 Yes by Univer s e (ABILIFY 8 [facility]) 11:06: lar route [place] as 300 mg sers 27 once every Me dical month. Branch cariprazine 2022-0 Yes 1{capsu Take 1 U nivers (VRAYLAR) 3 8-08 le} capsule by it y of mg Cap 11:06: mouth in [place] [address] the Medical morning Branch and 1 capsule in the evening. triamcinolo 2022-0 Yes Apply to [place] 0.1% in 808 affected ity o f aquaphor 11:06: area(s). [place] (COMPOUNDED [address] [place] [address] ) ointment Branch ARIPiprazol 2022-0 Yes by [facility] s e (ABILIFY 02-23 Intr[facility]y of [facility]) 11:06: lar route [place]ales as 300 mg sers 27 once every Me dical month. Branch cariprazine 2022-0 Yes 1{capsu Take 1 U nivers (VRAYLAR) 3 8-08 le} capsule by it y of mg Cap 11:06: mouth in [place] [address] the Medical morning Branch and 1 capsule in the evening. triamcinolo 2022-0 Yes Apply to [place] 0.1% in 808 affected ity o f aquaphor 11:06: area(s). [place] ([facility] ) ointment Branch ARIPiprazol 2022-0 Yes by Univer s e (ABILIFY 8 [facility] of [facility]) 11:06: lar route [place] as 300 mg sers 27 once every Me dical month. Branch cariprazine 2022-0 Yes 1{capsu Take 1 U nivers (VRAYLAR) 3 8-08 le} capsule by it y of mg Cap 11:06: mouth in [place] [address] the Medical morning Branch and 1 capsule in the evening. triamcinolo 2022-0 Yes Apply to [place] 0.1% in 808 affected ity o f aquaphor 11:06: area(s). [place] ([facility] ) ointment Branch ARIPiprazol 2022-0 Yes by Univer s e (ABILIFY 8-08 [facility] of [facility]) 11:06: lar route [place] as 300 mg sers 27 once every Me dical month. Branch cariprazine 2022-0 Yes 1{capsu Take 1 U nivers (VRAYLAR) 3 8-08 le} capsule by it y of mg Cap 11:06: mouth in [place] [address] the Medical morning Branch and 1 capsule in the evening. triamcinolo 2022-0 Yes Apply to [place] 0.1% in 808 affected ity o f aquaphor 11:06: area(s). [place] ([facility] ) ointment Branch ARIPiprazol 2022-0 Yes by Univer s e (ABILIFY 8-08 [facility] of [facility]) 11:06: lar route [place] as 300 mg sers 27 once every Me dical month. Branch cariprazine 2022-0 Yes 1{capsu Take 1 U nivers (VRAYLAR) 3 8-08 le} capsule by it y of mg Cap 11:06: mouth in [place] [address] the Medical morning Branch and 1 capsule in the evening. triamcinolo 2022-0 Yes Apply to [place] 0.1% in 08 affected ity o f aquaphor 11:06: area(s). [place] ([facility] Medical ) ointment Branch ARIPiprazol 2022-0 Yes by Univer s e (ABILIFY 8-08 [facility] of [facility]) 11:06: lar route [place] as 300 mg sers 27 once every Me dical month. Branch cariprazine 2022-0 Yes 1{capsu Take 1 U nivers (VRAYLAR) 3 8-08 le} capsule by it y of mg Cap 11:06: mouth in [place] [address] the Medical morning Branch and 1 capsule in the evening. triamcinolo 3-0 Yes Apply to [place] 0.1% in 8-08 affected ity o f aquaphor 11:06: area[facility]s). [place] [facility] [address] [place] [address] ) ointment Branch ARIPiprazol 2022-0 Yes by Univer s e (ABILIFY 8-08 Intr[facility]cu [facility]y of [facility]) 11:06: lar route [place] as 300 mg sers 27 once every Me dical month. Branch cariprazine 2022-0 Yes 1{capsu Take 1 U nivers (VRAYLAR) 3 8-08 le} capsule by it y of mg Cap 11:06: mouth in [place] [address] the Medical morning Branch and 1 capsule in the evening. triamcinolo 2022-0 Yes Apply to [place] 0.1% in 8-08 affected ity o f aquaphor 11:06: area(s). [place] ([address] ) ointment Branch ARIPiprazol 2022-0 Yes by Univer s e (ABILIFY 8-08 [facility]) 11:06: lar route [place] as 300 mg sers 27 once every Me dical month. Branch cariprazine 2022-0 Yes 1{capsu Take 1 U nivers (VRAYLAR) 3 8-08 le} capsule by it y of mg Cap 11:06: mouth in [place] [address] the Medical morning Branch and 1 capsule in the evening. triamcinolo 2022-0 Yes Apply to [place] 0.1% in 808 affected ity o f aquaphor 11:06: area(s). [place] ([facility] ) ointment Branch ARIPiprazol 2022-0 Yes by Univer s e (ABILIFY 8-08 [facility]) 11:06: lar route [place]ales as 300 mg sers 27 once every Me dical month. Branch cariprazine 2022-0 Yes 1{capsu Take 1 U nivers (VRAYLAR) 3 8-08 le} capsule by it y of mg Cap 11:06: mouth in [place] [address] the Medical morning Branch and 1 capsule in the evening. triamcinolo 2023-0 Yes Apply to [place] 0.1% in 808 affected ity o f aquaphor 11:06: area(s). [place] ([facility] Medical ) ointment Branch ARIPiprazol 2022-0 Yes by Univer s e (ABILIFY 02-23 [facility] of [facility]) 11:06: lar route [place] as 300 mg sers 27 once every Me dical month. Branch cariprazine 2022-0 Yes 1{capsu Take 1 U nivers (VRAYLAR) 3 8-08 le} capsule by it y of mg Cap 11:06: mouth in [place] [address] the Medical morning Branch and 1 capsule in the evening. triamcinolo 2022-0 Yes Apply to [place] 0.1% in 02-23 affected ity o f aquaphor 11:06: area(s). [place] ([facility] Medical ) ointment Branch ARIPiprazol 2022-0 Yes by Univer s e (ABILIFY 02-23 [facility] of [facility]) 11:06: lar route [place] as 300 mg sers 27 once every Me dical month. Branch cariprazine 2022-0 Yes 1{capsu Take 1 U nivers (VRAYLAR) 3 8-08 le} capsule by it y of mg Cap 11:06: mouth in [place] [address] the Medical morning Branch and 1 capsule in the evening. triamcinolo 2022-0 Yes Apply to [place] 0.1% in 08 affected ity o f aquaphor 11:06: area(s). [place] ([facility] ) ointment Branch ARIPiprazol 2022-0 Yes by Univer s e (ABILIFY 02-23 [facility] of [facility]) 11:06: lar route [place] as 300 mg sers 27 once every Me dical month. Branch cariprazine 2022-0 Yes 1{capsu Take 1 U nivers (VRAYLAR) 3 8-08 le} capsule by it y of mg Cap 11:06: mouth in [place] [address] the Medical morning Branch and 1 capsule in the evening. triamcinolo 2022-0 Yes Apply to [place] 0.1% in 808 affected ity o f aquaphor 11:06: area(s). [place] ([facility] Medical ) ointment Branch ARIPiprazol 2022-0 Yes by Univer s e (ABILIFY 8 [facility] of [facility]) 11:06: lar route [place] as 300 mg sers 27 once every Me dical month. Branch cariprazine 2022-0 Yes 1{capsu Take 1 U nivers (VRAYLAR) 3 8-08 le} capsule by it y of mg Cap 11:06: mouth in [place] 27 the Medical morning Branch and 1 capsule in the evening. triamcinolo 2022-0 Yes Apply to [place] 0.1% in 8-08 affected ity o f aquaphor 11:06: area(s). [place] ([facility] Medical ) ointment Branch ARIPiprazol 2022-0 Yes by Univer s e (ABILIFY 8 [facility] of [facility]) 11:06: lar route [place] as 300 mg sers 27 once every Me dical month. Branch triamcinolo 2022-0 Yes Apply to [place] 0.1% in 8-08 affected ity o f aquaphor 11:06: area(s). [place] ([facility] ) ointment Branch ARIPiprazol 2022-0 Yes by Univer s e (ABILIFY 8 [facility] of [facility]) 11:06: lar route [place] as 300 mg sers 27 once every Me dical month. Branch triamcinolo 2022-0 Yes Apply to [place] 0.1% in 8-08 affected ity o f aquaphor 11:06: area(s). [place] ([facility] ) ointment Branch ARIPiprazol 2022-0 Yes by Univer s e (ABILIFY 8 [facility]) 11:06: lar route [place] as 300 mg sers 27 once every Me dical month. Branch triamcinolo 2022-0 Yes Apply to [place] 0.1% in 8-08 affected ity o f aquaphor 11:06: area(s). [place] ([facility] Medical ) ointment Branch ARIPiprazol 2022-0 Yes by Univer s e (ABILIFY 02-23 [facility]) 11:06: lar route [place] as 300 mg sers 27 once every Me dical month. Branch triamcinolo 2022-0 Yes Apply to [place] 0.1% in 8-08 affected ity o f aquaphor 11:06: area(s). [place] ([facility] Medical ) ointment Branch ARIPiprazol 2022-0 Yes by Univer s e (ABILIFY 02-23 [facility]) 11:06: lar route [place] as 300 mg sers 27 once every Me dical month. Branch cariprazine 2022-0 Yes 1{capsu Take 1 U nivers (VRAYLAR) 3 8-08 le} capsule by it y of mg Cap 11:06: mouth in [place] [address] the Medical morning Branch and 1 capsule in the evening. triamcinolo 2022-0 Yes Apply to [place] 0.1% in 808 affected ity o f aquaphor 11:06: area(s). [place] ([facility] ) ointment Branch ARIPiprazol 2022-0 Yes by Univer s e (ABILIFY 02-23 [facility]) 11:06: lar route [place] as 300 mg sers 27 once every Me dical month. Branch cariprazine 2022-0 Yes 1{capsu Take 1 U nivers (VRAYLAR) 3 8-08 le} capsule by it y of mg Cap 11:06: mouth in [place] [address] the Medical morning Branch and 1 capsule in the evening. triamcinolo 2022-0 Yes Apply to [place] 0.1% in 808 affected ity o f aquaphor 11:06: area(s). [place] ([facility] Medical ) ointment Branch ARIPiprazol 2022-0 Yes by Univer s e (ABILIFY 02-23 [facility]) 11:06: lar route [place] as 300 mg sers 27 once every Me dical month. Branch cariprazine 2022-0 Yes 1{capsu Take 1 U nivers (VRAYLAR) 3 8-08 le} capsule by it y of mg Cap 11:06: mouth in [place] [address] the Medical morning Branch and 1 capsule in the evening. triamcinolo Yes Apply to [place] 0.1% in 8-08 affected ity o f aquaphor 11:06: area(s). [place] ([facility] Medical ) ointment Branch ARIPiprazol Yes by Univer s e (ABILIFY 8-08 [facility] of [facility]) 11:06: lar route [place] as 300 mg sers 27 once every Me dical month. Branch cariprazine Yes 1{capsu Take 1 U nivers (VRAYLAR) 3 8-08 le} capsule by it y of mg Cap 11:06: mouth in [place] [address] the Medical morning Branch and 1 capsule in the evening. SUMAtriptan 0 Yes [id number] 5mg Use 1 U nivers 5 8-08 [place] in ity of mg/actuatio 00:00: each [place] n nasal 00 nostril as Medica l spray needed for Branch headache symptoms. May repeat in 2 hours if needed. Max of 4 sprays per 24 hours SUMAtriptan 2022-0 Yes [id number] 5mg Use 1 U nivers 5 8-08 [place] ity of mg/actuatio 00:00: each [place] n nasal 00 nostril as Medica l spray needed for Branch headache symptoms. May repeat in 2 hours if needed. Max of 4 sprays per 24 hours SUMAtriptan 2022-0 Yes [id number] 5mg Use 1 U nivers 5 8-08 [place] ity of mg/actuatio 00:00: each [place] n nasal 00 nostril as Medica l spray needed for Branch headache symptoms. May repeat in 2 hours if needed. Max of 4 sprays per 24 hours SUMAtriptan 2022-0 Yes [id number] 5mg Use 1 U nivers 5 8-08 [place] ity of mg/actuatio 00:00: each [place] n nasal 00 nostril as Medica l spray needed for Branch headache symptoms. May repeat in 2 hours if needed. Max of 4 sprays per 24 hours SUMAtriptan 2022-0 Yes [id number] 5mg Use 1 U nivers 5 8-08 [place] ity of mg/actuatio 00:00: each [place] n nasal 00 nostril as Medica l spray needed for Branch headache symptoms. May repeat in 2 hours if needed. Max of 4 sprays per 24 hours SUMAtriptan 2023-0 Yes [id number] 5mg Use 1 U nivers 5 8-08 [place] ity of mg/actuatio 00:00: each [place] n nasal 00 nostril as Medica l spray needed for Branch headache symptoms. May repeat in 2 hours if needed. Max of 4 sprays per 24 hours SUMAtriptan 2023-0 Yes [id number] 5mg Use 1 U nivers 5 8-08 [place] ity of mg/actuatio 00:00: each [place] n nasal 00 nostril as Medica l spray needed for Branch headache symptoms. May repeat in 2 hours if needed. Max of 4 sprays per 24 hours SUMAtriptan 2023-0 Yes [id number] 5mg Use 1 U nivers 5 8-08 [place] ity of mg/actuatio 00:00: each [place] n nasal 00 nostril as Medica l spray needed for Branch headache symptoms. May repeat in 2 hours if needed. Max of 4 sprays per 24 hours SUMAtriptan 2023-0 Yes [id number] 5mg Use 1 U nivers 5 8-08 [place] ity of mg/actuatio 00:00: each [place] n nasal 00 nostril as Medica l spray needed for Branch headache symptoms. May repeat in 2 hours if needed. Max of 4 sprays per 24 hours SUMAtriptan 2023-0 Yes [id number] 5mg Use 1 U nivers 5 8-08 [place] ity of mg/actuatio 00:00: each [place] n nasal 00 nostril as Medica l spray needed for Branch headache symptoms. May repeat in 2 hours if needed. Max of 4 sprays per 24 hours SUMAtriptan 2023-0 Yes [id number] 5mg Use 1 U nivers 5 8-08 [place] ity of mg/actuatio 00:00: each [place] n nasal 00 nostril as Medica l spray needed for Branch headache symptoms. May repeat in 2 hours if needed. Max of 4 sprays per 24 hours SUMAtriptan 2023-0 Yes [id number] 5mg Use 1 U nivers 5 8-08 [place] in ity of mg/actuatio 00:00: each [place] n nasal 00 nostril as Medica l spray needed for Branch headache symptoms. May repeat in 2 hours if needed. Max of 4 sprays per 24 hours SUMAtriptan 2023-0 Yes [id number] 5mg Use 1 U nivers 5 8-08 [place] in ity of mg/actuatio 00:00: each [place] n nasal 00 nostril as Medica l spray needed for Branch headache symptoms. May repeat in 2 hours if needed. Max of 4 sprays per 24 hours SUMAtriptan 2023-0 Yes [id number] 5mg Use 1 U nivers 5 8-08 [place] in ity of mg/actuatio 00:00: each [place] n nasal 00 nostril as Medica l spray needed for Branch headache symptoms. May repeat in 2 hours if needed. Max of 4 sprays per 24 hours SUMAtriptan 2023-0 Yes [id number] 5mg Use 1 U nivers 5 8-08 [place] ity of mg/actuatio 00:00: each [place] n nasal 00 nostril as Medica l spray needed for Branch headache symptoms. May repeat in 2 hours if needed. Max of 4 sprays per 24 hours SUMAtriptan 2023-0 Yes [id number] 5mg Use 1 U nivers 5 8-08 [place] in ity of mg/actuatio 00:00: each [place] n nasal 00 nostril as Medica l spray needed for Branch headache symptoms. May repeat in 2 hours if needed. Max of 4 sprays per 24 hours SUMAtriptan 2023-0 Yes [id number] 5mg Use 1 U nivers 5 8-08 [place] in ity of mg/actuatio 00:00: each [place] n nasal 00 nostril as Medica l spray needed for Branch headache symptoms. May repeat in 2 hours if needed. Max of 4 sprays per 24 hours SUMAtriptan 2023-0 Yes [id number] 5mg Use 1 U nivers 5 8-08 [place] in ity of mg/actuatio 00:00: each [place] n nasal 00 nostril as Medica l spray needed for Branch headache symptoms. May repeat in 2 hours if needed. Max of 4 sprays per 24 hours SUMAtriptan 2023-0 Yes [id number] 5mg Use 1 U nivers 5 8-08 [place] in ity of mg/actuatio 00:00: each [place] n nasal 00 nostril as Medica l spray needed for Branch headache symptoms. May repeat in 2 hours if needed. Max of 4 sprays per 24 hours SUMAtriptan 2023-0 Yes [id number] 5mg Use 1 U nivers 5 8-08 [place] ity of mg/actuatio 00:00: each [place] n nasal 00 nostril as Medica l spray needed for Branch headache symptoms. May repeat in 2 hours if needed. Max of 4 sprays per 24 hours SUMAtriptan 2023-0 Yes [id number] 5mg Use 1 U nivers 5 8-08 [place] ity of mg/actuatio 00:00: each [place] n nasal 00 nostril as Medica l spray needed for Branch headache symptoms. May repeat in 2 hours if needed. Max of 4 sprays per 24 hours SUMAtriptan 2023-0 Yes [id number] 5mg Use 1 U nivers 5 8-08 [place] in ity of mg/actuatio 00:00: each [place] n nasal 00 nostril as Medica l spray needed for Branch headache symptoms. May repeat in 2 hours if needed. Max of 4 sprays per 24 hours SUMAtriptan 2023-0 Yes [id number] 5mg Use 1 U nivers 5 8-08 [place] in ity of mg/actuatio 00:00: each [place] n nasal 00 nostril as Medica l spray needed for Branch headache symptoms. May repeat in 2 hours if needed. Max of 4 sprays per 24 hours SUMAtriptan 2023-0 Yes [id number] 5mg Use 1 U nivers 5 8-08 [place] in ity of mg/actuatio 00:00: each [place] n nasal 00 nostril as Medica l spray needed for Branch headache symptoms. May repeat in 2 hours if needed. Max of 4 sprays per 24 hours SUMAtriptan 2023-0 Yes [id number] 5mg Use 1 [facility]ivers 5 8-08 [place] ity of mg/actuatio 00:00: each [place] n nasal 00 nostril as Medica l spray needed for Branch headache symptoms. May repeat in 2 hours if needed. Max of 4 sprays per 24 hours SUMAtriptan 2023-0 Yes [id number] 5mg Use 1 [facility] nivers 5 8-08 [place] ity of mg/actuatio 00:00: each [place] n nasal 00 nostril as Medica l spray needed for Branch headache symptoms. May repeat in 2 hours if needed. Max of 4 sprays per 24 hours SUMAtriptan Yes [id number] 5mg Use 1 [facility] nivers 5 8-08 [place] ity of mg/actuatio 00:00: each [place] n nasal 00 nostril as Medica l spray needed for Branch headache symptoms. May repeat in 2 hours if needed. Max of 4 sprays per 24 hours doxycycline 2022- No [id number] 100mg Take 1 [facility] hyclate 100 02-23 capsule by i ty of mg capsule 00:00: 04:59 mouth [place] 00 :00 every 12 Medical (twelve) Branch hours for 5 days. doxycycline 2022- No [id number] 100mg Take 1 [facility] hyclate 100 02-23 capsule by i ty of mg capsule 00:00: 04:59 mouth [place] 00 :00 every 12 Medical (twelve) Branch hours for 5 days. doxycycline 2022- No [id number] 100mg Take 1 [facility] hyclate 100 02-23 [...] SPRY 27 :00 Medical Branch levalbutero Yes [id number] 2{puff} Inhale 2 Univers l (XOPENEX 8-07 Puffs ity of HFA) 45 00:00: every 6 [place] mcg/actuati 00 (six) Medical on inhaler hours as Branc h needed for Wheezing. INHALE 2 PUFFS BY MOUTH EVERY 6 HOURS NEEDED BEFORE EXERCISE OR FOR WHEEZING/S HORTNESS OF BREATH. levalbutero 0 Yes [id number] 2{puff} Inhale 2 Univers l (XOPENEX 8-07 Puffs ity of HFA) 45 00:00: every 6 [place] mcg/actuati 00 (six) Medical on inhaler hours as Branc h needed for Wheezing. INHALE 2 PUFFS BY MOUTH EVERY 6 HOURS NEEDED BEFORE EXERCISE OR FOR WHEEZING/S HORTNESS OF BREATH. levalbutero 0 Yes [id number] 2{puff} Inhale 2 Univers l (XOPENEX 8-07 Puffs ity of HFA) 45 00:00: every 6 [place] mcg/actuati 00 (six) Medical on inhaler hours as Branc h needed for Wheezing. INHALE 2 PUFFS BY MOUTH EVERY 6 HOURS NEEDED BEFORE EXERCISE OR FOR WHEEZING/S HORTNESS OF BREATH. SUMAtriptan 0 Yes [id number] 1 spray in [facility] 5 8-07 each ity of mg/actuatio 00:00: nostril as [place] n nasal 00 needed for Medica l spray migraine. Branch If symptoms persist or return, may repeat dose after =1 hour. Do not exceed 4 sprays total in any 24-hour period. levalbutero 0 Yes [id number] 2{puff} Inhale 2 Univers l (XOPENEX 8-07 Puffs ity of HFA) 45 00:00: every 6 [place] mcg/actuati 00 (six) Medical on inhaler hours as Branc h needed for Wheezing. INHALE 2 PUFFS BY MOUTH EVERY 6 HOURS NEEDED BEFORE EXERCISE OR FOR WHEEZING/S HORTNESS OF BREATH. levalbutero 2022-0 Yes [id number] 2{puff} Inhale 2 Univers l (XOPENEX 8-07 Puffs ity of HFA) 45 00:00: every 6 [place] mcg/actuati 00 (six) Medical on inhaler hours as Branc h needed for Wheezing. INHALE 2 PUFFS BY MOUTH EVERY 6 HOURS NEEDED BEFORE EXERCISE OR FOR WHEEZING/S HORTNESS OF BREATH. levalbutero 2023-0 Yes [id number] 2{puff} Inhale 2 Univers l (XOPENEX 8-07 Puffs ity of HFA) 45 00:00: every 6 [place] mcg/actuati 00 (six) Medical on inhaler hours as Branc h needed for Wheezing. INHALE 2 PUFFS BY MOUTH EVERY 6 HOURS NEEDED BEFORE EXERCISE OR FOR WHEEZING/S HORTNESS OF BREATH. levalbutero 0 Yes [id number] 2{puff} Inhale 2 Univers l (XOPENEX 8-07 Puffs ity of HFA) 45 00:00: every 6 [place] mcg/actuati 00 (six) Medical on inhaler hours as Branc h needed for Wheezing. INHALE 2 PUFFS BY MOUTH EVERY 6 HOURS NEEDED BEFORE EXERCISE OR FOR WHEEZING/S HORTNESS OF BREATH. levalbutero Yes [id number] 2{puff} Inhale 2 Univers l (XOPENEX 8-07 Puffs ity of HFA) 45 00:00: every 6 [place] mcg/actuati 00 (six) Medical on inhaler hours as Branc h needed for Wheezing. INHALE 2 PUFFS BY MOUTH EVERY 6 HOURS NEEDED BEFORE EXERCISE OR FOR WHEEZING/S HORTNESS OF BREATH. levalbutero Yes [id number] 2{puff} Inhale 2 Univers l (XOPENEX 8-07 Puffs ity of HFA) 45 00:00: every 6 [place] mcg/actuati 00 (six) Medical on inhaler hours as Branc h needed for Wheezing. INHALE 2 PUFFS BY MOUTH EVERY 6 HOURS NEEDED BEFORE EXERCISE OR FOR WHEEZING/S HORTNESS OF BREATH. levalbutero Yes [id number] 2{puff} Inhale 2 Univers l (XOPENEX 8-07 Puffs ity of HFA) 45 00:00: every 6 [place] mcg/actuati 00 (six) Medical on inhaler hours as Branc h needed for Wheezing. INHALE 2 PUFFS BY MOUTH EVERY 6 HOURS NEEDED BEFORE EXERCISE OR FOR WHEEZING/S HORTNESS OF BREATH. levalbutero 0 Yes [id number] 2{puff} Inhale 2 Univers l (XOPENEX 8-07 Puffs ity of HFA) 45 00:00: every 6 [place] mcg/actuati 00 (six) Medical on inhaler hours as Branc h needed for Wheezing. INHALE 2 PUFFS BY MOUTH EVERY 6 HOURS NEEDED BEFORE EXERCISE OR FOR WHEEZING/S HORTNESS OF BREATH. levalbutero 0 Yes [id number] 2{puff} Inhale 2 Univers l (XOPENEX 8-07 Puffs ity of HFA) 45 00:00: every 6 [place] mcg/actuati 00 (six) Medical on inhaler hours as Branc h needed for Wheezing. INHALE 2 PUFFS BY MOUTH EVERY 6 HOURS NEEDED BEFORE EXERCISE OR FOR WHEEZING/S HORTNESS OF BREATH. levalbutero 0 Yes [id number] 2{puff} Inhale 2 Univers l (XOPENEX 8-07 Puffs ity of HFA) 45 00:00: every 6 [place] mcg/actuati 00 (six) Medical on inhaler hours as Branc h needed for Wheezing. INHALE 2 PUFFS BY MOUTH EVERY 6 HOURS NEEDED BEFORE EXERCISE OR FOR WHEEZING/S HORTNESS OF BREATH. levalbutero 0 Yes [id number] 2{puff} Inhale 2 Univers l (XOPENEX 8-07 Puffs ity of HFA) 45 00:00: every 6 [place] mcg/actuati 00 (six) Medical on inhaler hours as Branc h needed for Wheezing. INHALE 2 PUFFS BY MOUTH EVERY 6 HOURS NEEDED BEFORE EXERCISE OR FOR WHEEZING/S HORTNESS OF BREATH. levalbutero 0 Yes [id number] 2{puff} Inhale 2 [facility] l (XOPENEX 8-07 Puffs ity of HFA) 45 00:00: every 6 [place] mcg/actuati 00 (six) Medical on inhaler hours as Branc h needed for Wheezing. INHALE 2 PUFFS BY MOUTH EVERY 6 HOURS NEEDED BEFORE EXERCISE OR FOR WHEEZING/S HORTNESS OF BREATH. levalbutero 0 Yes [id number] 2{puff} Inhale 2 [facility] l (XOPENEX 8-07 Puffs ity of HFA) 45 00:00: every 6 [place] mcg/actuati 00 (six) Medical on inhaler hours as Branc h needed for Wheezing. INHALE 2 PUFFS BY MOUTH EVERY 6 HOURS NEEDED BEFORE EXERCISE OR FOR WHEEZING/S HORTNESS OF BREATH. levalbutero 0 Yes [id number] 2{puff} Inhale 2 Univers l (XOPENEX 8-07 Puffs ity of HFA) 45 00:00: every 6 [place] mcg/actuati 00 (six) Medical on inhaler hours as Branc h needed for Wheezing. INHALE 2 PUFFS BY MOUTH EVERY 6 HOURS NEEDED BEFORE EXERCISE OR FOR WHEEZING/S HORTNESS OF BREATH. levalbutero 0 Yes [id number] 2{puff} Inhale 2 [facility] l (XOPENEX 8-07 Puffs ity of HFA) 45 00:00: every 6 [place] mcg/actuati 00 (six) Medical on inhaler hours as Branc h needed for Wheezing. INHALE 2 PUFFS BY MOUTH EVERY 6 HOURS NEEDED BEFORE EXERCISE OR FOR WHEEZING/S HORTNESS OF BREATH. levalbutero Yes [id number] 2{puff} Inhale 2 [facility] l (XOPENEX 8-07 Puffs ity of HFA) 45 00:00: every 6 [place] mcg/actuati 00 (six) Medical on inhaler hours as Branc h needed for Wheezing. INHALE 2 PUFFS BY MOUTH EVERY 6 HOURS NEEDED BEFORE EXERCISE OR FOR WHEEZING/S HORTNESS OF BREATH. levalbutero 0 Yes [id number] 2{puff} Inhale 2 [facility] l (XOPENEX 8-07 Puffs ity of HFA) 45 00:00: every 6 [place] mcg/actuati 00 (six) Medical on inhaler hours as Branc h needed for Wheezing. INHALE 2 PUFFS BY MOUTH EVERY 6 HOURS NEEDED BEFORE EXERCISE OR FOR WHEEZING/S HORTNESS OF BREATH. levalbutero 0 Yes [id number] 2{puff} Inhale 2 [facility] l (XOPENEX 8-07 Puffs ity of HFA) 45 00:00: every 6 [place] mcg/actuati 00 (six) Medical on inhaler hours as Branc h needed for Wheezing. INHALE 2 PUFFS BY MOUTH EVERY 6 HOURS NEEDED BEFORE EXERCISE OR FOR WHEEZING/S HORTNESS OF BREATH. levalbutero 0 Yes [id number] 2{puff} Inhale 2 [facility] l (XOPENEX 8-07 Puffs ity of HFA) 45 00:00: every 6 [place] mcg/actuati 00 (six) Medical on inhaler hours as Branc h needed for Wheezing. INHALE 2 PUFFS BY MOUTH EVERY 6 HOURS NEEDED BEFORE EXERCISE OR FOR WHEEZING/S HORTNESS OF BREATH. levalbutero 0 Yes [id number] 2{puff} Inhale 2 [facility] l (XOPENEX 8-07 Puffs ity of HFA) 45 00:00: every 6 [place] mcg/actuati 00 (six) Medical on inhaler hours as Branc h needed for Wheezing. INHALE 2 PUFFS BY MOUTH EVERY 6 HOURS NEEDED BEFORE EXERCISE OR FOR WHEEZING/S HORTNESS OF BREATH. levalbutero 0 Yes [id number] 2{puff} Inhale 2 [facility] l (XOPENEX 8-07 Puffs ity of HFA) 45 00:00: every 6 [place] mcg/actuati 00 (six) Medical on inhaler hours as Branc h needed for Wheezing. INHALE 2 PUFFS BY MOUTH EVERY 6 HOURS NEEDED BEFORE EXERCISE OR FOR WHEEZING/S HORTNESS OF BREATH. levalbutero 0 Yes [id number] 2{puff} Inhale 2 [facility] l (XOPENEX 8-07 Puffs ity of HFA) 45 00:00: every 6 [place] mcg/actuati 00 (six) Medical on inhaler hours as Branc h needed for Wheezing. INHALE 2 PUFFS BY MOUTH EVERY 6 HOURS NEEDED BEFORE EXERCISE OR FOR WHEEZING/S HORTNESS OF BREATH. levalbutero 0 Yes [id number] 2{puff} Inhale 2 [facility] l (XOPENEX 8-07 Puffs ity of HFA) 45 00:00: every 6 [place] mcg/actuati 00 (six) Medical on inhaler hours as Branc h needed for Wheezing. INHALE 2 PUFFS BY MOUTH EVERY 6 HOURS NEEDED BEFORE EXERCISE OR FOR WHEEZING/S HORTNESS OF BREATH. levalbutero 0 Yes [id number] 2{puff} Inhale 2 [facility] l (XOPENEX 8-07 Puffs ity of HFA) 45 00:00: every 6 [place] mcg/actuati 00 (six) Medical on inhaler hours as Branc h needed for Wheezing. INHALE 2 PUFFS BY MOUTH EVERY 6 HOURS NEEDED BEFORE EXERCISE OR FOR WHEEZING/S HORTNESS OF BREATH. levalbutero 2022-0 Yes [id number] 2{puff} Inhale 2 [facility] l (XOPENEX 8-07 Puffs ity of HFA) 45 00:00: every 6 [place] mcg/actuati 00 (six) Medical on inhaler hours as Branc h needed for Wheezing. INHALE 2 PUFFS BY MOUTH EVERY 6 HOURS NEEDED BEFORE EXERCISE OR FOR WHEEZING/S HORTNESS OF BREATH. levalbutero 2022-0 Yes [id number] 2{puff} Inhale 2 [facility] l (XOPENEX 8-07 Puffs ity of HFA) 45 00:00: every 6 [place] mcg/actuati 00 (six) Medical on inhaler hours as Branc h needed for Wheezing. INHALE 2 PUFFS BY MOUTH EVERY 6 HOURS NEEDED BEFORE EXERCISE OR FOR WHEEZING/S HORTNESS OF BREATH. levalbutero 2022-0 Yes [id number] 2{puff} Inhale 2 [facility] l (XOPENEX 8-07 Puffs ity of HFA) 45 00:00: every 6 [place] mcg/actuati 00 (six) Medical on inhaler hours as Branc h needed for Wheezing. INHALE 2 PUFFS BY MOUTH EVERY 6 HOURS NEEDED BEFORE EXERCISE OR FOR WHEEZING/S HORTNESS OF BREATH. SUMAtriptan 2022- No [id number] 1 spray in [facility] 5 -01 23-08 each ity of mg/actuatio 00:00: 00:00 nostril as [place] n nasal 00 :00 needed for Medica l spray migraine. Branch If symptoms persist or return, may repeat dose after =1 hour. Do not exceed 4 sprays total in any 24-hour period. SUMAtriptan 2022-0 2022- No [id number] 1 spray in [facility] 5 - 08-07 each ity of mg/actuatio 00:00: 00:00 nostril as [place] n nasal 00 :00 needed for Medica l spray migraine. Branch If symptoms persist or return, may repeat dose after =1 hour. Do not exceed 4 sprays total in any 24-hour period. NaCl 0.9% 2022- No 1000mL at 999 Uni vers (NS) bolus 7-17 07-17 mL/hr, ity of infusion 06:45: 06:49 1,000 mL, [place] 1,000 mL 00 :00 IV Medical Piggyback, Branch ONCE, 1 dose, On 02/01/23 at 0145, STAT iopamidol 202- No [id number] 70mL 70 mL, U nivers (ISOVUE 02-01 0717 Intravenou ity o f 370-500 mL) 06:45: 05:47 s, ONCE, 1 [place] injection 00 :00 dose, On Medica l 70 mL Mon [place] 02/01/23 at 0145, Routine IMITREX 5 Yes as needed Uni vers MG/ACTUATIO 01-28 for ity of N NASAL 15:08: migraines [address] Yes Apply to [place] 0.1% in 01-28 affected ity o f aquaphor 15:08: area(s). [place] (COMPOUNDED [address] [place] [address] ) ointment Branch ARIPiprazol Yes by [facility] (ABILIFY 01-28 [facility]) 15:08: lar route [place] 300 mg sers 59 once every Me dical month. Branch cariprazine Yes 1{capsu Take 1 U nivers (VRAYLAR) 3 01-28 le} capsule by it y of mg Cap 15:08: mouth in [place] [address] the Medical morning Branch and 1 capsule in the evening. IMITREX 5 Yes as needed Uni vers MG/ACTUATIO 01-28 for ity of N NASAL 15:08[facility] [address] [place] [address] Yes Apply to [place] 0.1% in 01-28 affected ity o f aquaphor 15:08: area(s). [place] (COMPOUNDED 59 Medical ) ointment Branch ARIPiprazol Yes by Univer s e (ABILIFY 01-28 [facility]) 15:08: lar route [place] 300 mg sers 59 once every Me dical month. Branch cariprazine Yes 1{capsu Take 1 U nivers (VRAYLAR) 3 7-13 le} capsule by it y of mg Cap 15:08: mouth in [place] 59 the Medical morning Branch and 1 capsule in the evening. IMITREX 5 Yes as needed Uni vers MG/ACTUATIO 7 for ity of N NASAL 15:08: migraines [place] SPRY 59 Medical Branch [facility] Yes Apply to Un [place] 0.1% in - affected ity o f aquaphor 15:08: area(s). [place] (COMPOUNDED 59 Medical ) ointment Branch ARIPiprazol Yes by Univer s e (ABILIFY 7 [facility]) 15:08: lar route [place] 300 mg sers 59 once every Me dical month. Branch cariprazine Yes 1{capsu Take 1 U nivers (VRAYLAR) 3 7- le} capsule by it y of mg Cap 15:08: mouth in [place] [address] the Medical morning Branch and 1 capsule in the evening. IMITREX 5 Yes as needed Uni vers MG/ACTUATIO 01-28 for ity of N NASAL 15:08: migraines [place] [address] Medical Branch [facility] Yes Apply to [place] 0.1% in 01-28 affected ity o f aquaphor 15:08: area(s). [place] (COMPOUNDED 59 Medical ) ointment Branch ARIPiprazol Yes by [facility] s e (ABILIFY 7 Intramuscu ity of [facility]) 15:08: lar route [place] 300 mg sers 59 once every Me dical month. Branch cariprazine Yes 1{capsu Take 1 U nivers (VRAYLAR) 3 7-13 le} capsule by it y of mg Cap 15:08: mouth in [place] [address] the Medical morning Branch and 1 capsule in the evening. IMITREX 5 Yes as needed Uni vers MG/ACTUATIO 713 for ity of N NASAL 15:08: [facility] Branch [facility] Yes Apply to [place] 0.1% in 713 affected ity o f aquaphor 15:08: area(s). [place] (COMPOUNDED 59 Medical ) ointment Branch ARIPiprazol Yes by Univer s e (ABILIFY 7 Intramuscu ity of [facility]) 15:08: lar route [place] 300 mg sers 59 once every Me dical month. Branch cariprazine Yes 1{capsu Take 1 U nivers (VRAYLAR) 3 7-13 le} capsule by it y of mg Cap 15:08: mouth in [place] 59 the Medical morning Branch and 1 capsule in the evening. IMITREX 5 2022-0 Yes as needed Uni vers MG/ACTUATIO 7-13 for ity of N NASAL 15:08: migraines [place] SPRY 59 Medical Branch [facility] Yes Apply to [place] 0.1% in 713 affected ity o f aquaphor 15:08: area(s). [place] (COMPOUNDED 59 Medical ) ointment Branch ARIPiprazol Yes by Univer s e (ABILIFY 7 Intramuscu ity of [facility]) 15:08: lar route [place] 300 mg sers 59 once every Me dical month. Branch cariprazine Yes 1{capsu Take 1 U nivers (VRAYLAR) 3 7-13 le} capsule by it y of mg Cap 15:08: mouth in [place] [address] the Medical morning Branch and 1 capsule in the evening. IMITREX 5 2022-0 Yes as needed Uni vers MG/ACTUATIO 7-13 for ity of N NASAL 15:08: migraines [place] SPRY 59 Medical Branch [facility] Yes Apply to [place] 0.1% in 7-13 affected ity o f aquaphor 15:08: area(s). [place] (COMPOUNDED 59 Medical ) ointment Branch ARIPiprazol Yes by Univer s e (ABILIFY 7 Intramuscu ity of [facility]) 15:08: lar route [place] 300 mg sers 59 once every Me dical month. Branch cariprazine Yes 1{capsu Take 1 U nivers (VRAYLAR) 3 7-13 le} capsule by it y of mg Cap 15:08: mouth in [place] 59 the Medical morning Branch and 1 capsule in the evening. IMITREX 5 0 Yes as needed Uni vers MG/ACTUATIO 7-13 for ity of N NASAL 15:08: migraines [place] SPRY 59 Medical Branch [facility] Yes Apply to [place] 0.1% in 7-13 affected ity o f aquaphor 15:08: area(s). [place] (COMPOUNDED 59 Medical ) ointment Branch ARIPiprazol Yes by Univer s e (ABILIFY 7 Intramuscu ity of [facility]) 15:08: lar route [place] 300 mg sers 59 once every Me dical month. Branch cariprazine Yes 1{capsu Take 1 U nivers (VRAYLAR) 3 7-13 le} capsule by it y of mg Cap 15:08: mouth in [place] [address] the Medical morning Branch and 1 capsule in the evening. IMITREX 5 0 Yes as needed Uni vers MG/ACTUATIO 7- for ity of N NASAL 15:08: [facility] Branch [facility] Yes Apply to [place] 0.1% in 01-28 affected ity o f aquaphor 15:08: area(s). [place] (COMPOUNDED 59 Medical ) ointment Branch ARIPiprazol Yes by Univer s e (ABILIFY 7 Intramuscu ity of [facility]) 15:08: lar route [place] 300 mg sers 59 once every Me dical month. Branch cariprazine Yes 1{capsu Take 1 U nivers (VRAYLAR) 3 7-13 le} capsule by it y of mg Cap 15:08: mouth in [place] 59 the Medical morning Branch and 1 capsule in the evening. IMITREX 5 0 Yes as needed Uni vers MG/ACTUATIO 7-13 for ity of N NASAL 15:08: migraines [place] SPRY 59 Medical Branch [facility] Yes Apply to [place] 0.1% in 7-13 affected ity o f aquaphor 15:08: area(s). [place] (COMPOUNDED 59 Medical ) ointment Branch ARIPiprazol Yes by Univer s e (ABILIFY 7-13 Intramuscu ity of [facility]) 15:08: lar route [place] 300 mg sers 59 once every Me dical month. Branch cariprazine Yes 1{capsu Take 1 U nivers (VRAYLAR) 3 7-13 le} capsule by it y of mg Cap 15:08: mouth in [place] [address] the Medical morning Branch and 1 capsule in the evening. IMITREX 5 2022-0 Yes as needed Uni vers MG/ACTUATIO 7-13 for ity of N NASAL 15:08: migraines [address] Branch [facility] Yes Apply to [place] 0.1% in 7 affected ity o f aquaphor 15:08: area(s). [place] (COMPOUNDED 59 Medical ) ointment Branch ARIPiprazol Yes by Univer s e (ABILIFY 713 Intramuscu ity of [facility]) 15:08: lar route [place] 300 mg sers 59 once every Me dical month. Branch cariprazine Yes 1{capsu Take 1 U nivers (VRAYLAR) 3 7-13 le} capsule by it y of mg Cap 15:08: mouth in [place] [address] the Medical morning Branch and 1 capsule in the evening. IMITREX 5 2022-0 Yes as needed Uni vers MG/ACTUATIO 7-13 for ity of N NASAL 15:08: migraines [place] [address] Medical [facility] Yes Apply to Un [place] 0.1% in 713 affected ity o f aquaphor 15:08: area(s). [place] (COMPOUNDED 59 Medical ) ointment Branch ARIPiprazol [...] for ity of N NASAL 15:08: migraines [address] Yes Apply to [place] 0.1% in 7-13 affected ity o f aquaphor 15:08: area(s). [place] (COMPOUNDED 59 Medical ) ointment Branch ARIPiprazol Yes by Univer s e (ABILIFY 7 Intramuscu ity of [facility]) 15:08: lar route [place] 300 mg sers 59 once every Me dical month. Branch cariprazine Yes 1{capsu Take 1 U nivers (VRAYLAR) 3 7-13 le} capsule by it y of mg Cap 15:08: mouth in [place] [address] the Medical morning Branch and 1 capsule in the evening. IMITREX 5 Yes as needed Uni vers MG/ACTUATIO 7-13 for ity of N NASAL 15:08: migraines [address] Yes Apply to Un [place] 0.1% in 01-28 affected ity o f aquaphor 15:08: area(s). [place] (COMPOUNDED 59 Medical ) ointment Branch ARIPiprazol Yes by [facility] s e (ABILIFY 7 Intramuscu ity of [facility]) 15:08: lar route [place] 300 mg sers 59 once every Me dical month. Branch cariprazine Yes 1{capsu Take 1 U nivers (VRAYLAR) 3 7-13 le} capsule by it y of mg Cap 15:08: mouth in [place] 59 the Medical morning Branch and 1 capsule in the evening. IMITREX 5 0 Yes as needed Uni vers MG/ACTUATIO 7-13 for ity of N NASAL 15:08: migraines [address] Yes Apply to [place] 0.1% in 7-13 affected ity o f aquaphor 15:08: area(s). [place] (COMPOUNDED 59 Medical ) ointment Branch ARIPiprazol Yes by Univer s e (ABILIFY 01-28 Intramuscu ity of [facility]) 15:08: lar route [place] 300 mg sers 59 once every Me dical month. Branch cariprazine Yes 1{capsu Take 1 U nivers (VRAYLAR) 3 01-28 le} capsule by it y of mg Cap 15:08: mouth in [place] 59 the Medical morning Branch and 1 capsule in the evening. IMITREX 5 Yes as needed Uni vers MG/ACTUATIO 01-28 for ity of N NASAL 15:08: migraines [place] SPRY 59 Medical Branch triamcinolo Yes Apply to [place] 0.1% in 01-28 affected ity o f aquaphor 15:08: area(s). [place] (COMPOUNDED 59 Medical ) ointment Branch ARIPiprazol Yes by Univer s e (ABILIFY 01-28 Intramuscu ity of [facility]) 15:08: lar route [place] 300 mg sers 59 once every Me dical month. Branch cariprazine Yes 1{capsu Take 1 U nivers (VRAYLAR) 3 01-28 le} capsule by it y of mg Cap 15:08: mouth in [place] 59 the Medical morning Branch and 1 capsule in the evening. triamcinolo Yes Apply to [place] 0.1% in 01-28 affected ity o f aquaphor 15:08: area(s). [place] (COMPOUNDED 59 Medical ) ointment Branch ARIPiprazol Yes by Univer s e (ABILIFY 01-28 Intramuscu ity of [facility]) 15:08: lar route [place] 300 mg sers 59 once every Me dical month. Branch cariprazine Yes 1{capsu Take 1 U nivers (VRAYLAR) 3 01-28 le} capsule by it y of mg Cap 15:08: mouth in [place] 59 the Medical morning Branch and 1 capsule in the evening. triamcinolo Yes Apply to [place] 0.1% in 01-28 affected ity o f aquaphor 15:08: area(s). [place] (COMPOUNDED 59 Medical ) ointment Branch ARIPiprazol Yes by Univer s e (ABILIFY 01-28 Intramuscu ity [facility]) 15:08: lar route [place] 300 mg sers 59 once every Me dical month. Branch cariprazine Yes 1{capsu Take 1 U nivers (VRAYLAR) 3 01-28 le} capsule by it y of mg Cap 15:08: mouth in [place] 59 the Medical morning Branch and 1 capsule in the evening. triamcinolo Yes Apply to [place] 0.1% in 01-28 affected ity o f aquaphor 15:08: area(s). [place] (COMPOUNDED 59 Medical ) ointment Branch ARIPiprazol Yes by Univer s e (ABILIFY 01-28 Intramuscu ity [facility]) 15:08: lar route [place] 300 mg sers 59 once every Me dical month. Branch cariprazine Yes 1{capsu Take 1 U nivers (VRAYLAR) 3 01-28 le} capsule by it y of mg Cap 15:08: mouth in [place] 59 the Medical morning Branch and 1 capsule in the evening. levETIRAcet 2022-0 Yes [id number] 1000mg Take 10 mL Univers am (KEPPRA) 7-13 by mouth ity of 100 mg/mL 00:00: in the [place] oral 00 morning Medical solution and 10 mL Branch in the evening. levETIRAcet 2022-0 Yes [id number] 1000mg Take 10 mL Univers am (KEPPRA) 7-13 by mouth ity of 100 mg/mL 00:00: in the [place] oral 00 morning Medical solution and 10 mL Branch in the evening. metoprolol 2022-0 Yes [id number] 25mg Take 1 U nivers succinate 7-13 tablet by ity o f XL 25 mg 24 00:00: mouth in [place] hr tablet 00 the Medical morning. Branch levETIRAcet 2022-0 Yes [id number] 1000mg Take 10 mL Univers am (KEPPRA) 7-13 by mouth ity of 100 mg/mL 00:00: in the [place] oral 00 morning Medical solution and 10 mL Branch in the evening. metoprolol 3-0 Yes [id number] 25mg Take 1 U nivers succinate 7-13 tablet by ity o f XL 25 mg 24 00:00: mouth in [place] hr tablet 00 the Medical morning. Branch levETIRAcet 2022-0 Yes [id number] 1000mg Take 10 mL Univers am (KEPPRA) 7-13 by mouth ity of 100 mg/mL 00:00: in the [place] oral 00 morning Medical solution and 10 mL Branch in the evening. metoprolol 2022-0 Yes [id number] 25mg Take 1 U nivers succinate 7-13 tablet by ity o f XL 25 mg 24 00:00: mouth in [place] hr tablet 00 the Medical morning. Branch levETIRAcet 2022-0 Yes [id number] 1000mg Take 10 mL Univers am (KEPPRA) 7-13 by mouth ity of 100 mg/mL 00:00: in the [place] oral 00 morning Medical solution and 10 mL Branch in the evening. metoprolol 2022-0 Yes [id number] 25mg Take 1 U nivers succinate 7-13 tablet by ity o f XL 25 mg 24 00:00: mouth in [place] hr tablet 00 the Medical morning. Branch levETIRAcet 2022-0 Yes [id number] 1000mg Take 10 mL Univers am (KEPPRA) 7-13 by mouth ity of 100 mg/mL 00:00: in the [place] oral 00 morning Medical solution and 10 mL Branch in the evening. metoprolol 3-0 Yes [id number] 25mg Take 1 U nivers succinate 7-13 tablet by ity o f XL 25 mg 24 00:00: mouth in [place] hr tablet 00 the Medical morning. Branch levETIRAcet 3-0 Yes [id number] 1000mg Take 10 mL Univers am (KEPPRA) 7-13 by mouth ity of 100 mg/mL 00:00: in the [place] oral 00 morning Medical solution and 10 mL Branch in the evening. metoprolol 3-0 Yes [id number] 25mg Take 1 U nivers succinate 7-13 tablet by ity o f XL 25 mg 24 00:00: mouth in [place] hr tablet 00 the Medical morning. Branch levETIRAcet 3-0 Yes [id number] 1000mg Take 10 mL [facility] am (KEPPRA) 7-13 by mouth ity of 100 mg/mL 00:00: in the [place] oral 00 morning Medical solution and 10 mL Branch in the evening. metoprolol 3-0 Yes [id number] 25mg Take 1 U nivers succinate 7-13 tablet by ity o f XL 25 mg 24 00:00: mouth in [place] hr tablet 00 the Medical morning. Branch levETIRAcet 2022-0 Yes [id number] 1000mg Take 10 mL [facility] am (KEPPRA) 7-13 by mouth ity of 100 mg/mL 00:00: in the [place] oral 00 morning Medical solution and 10 mL Branch in the evening. metoprolol 2022-0 Yes [id number] 25mg Take 1 U nivers succinate 7-13 tablet by ity o f XL 25 mg 24 00:00: mouth in [place] hr tablet 00 the Medical morning. Branch levETIRAcet 2022-0 Yes [id number] 1000mg Take 10 mL [facility] am (KEPPRA) 7-13 by mouth ity of 100 mg/mL 00:00: in the [place] oral morning Medical solution and 10 mL Branch in the evening. metoprolol 2022-0 Yes [id number] 25mg Take 1 U nivers succinate 7-13 tablet by ity o f XL 25 mg 24 00:00: mouth in [place] hr tablet 00 the Medical morning. Branch levETIRAcet 3-0 Yes [id number] 1000mg Take 10 mL [facility] am (KEPPRA) 7-13 by mouth ity of 100 mg/mL 00:00: in the [place] oral 00 morning Medical solution and 10 mL Branch in the evening. metoprolol 3-0 Yes [id number] 25mg Take 1 U nivers succinate 7-13 tablet by ity o f XL 25 mg 24 00:00: mouth in [place] hr tablet 00 the Medical morning. Branch levETIRAcet 3-0 Yes [id number] 1000mg Take 10 mL [facility] am (KEPPRA) 7-13 by mouth ity of 100 mg/mL 00:00: in the [place] oral 00 morning Medical solution and 10 mL Branch in the evening. metoprolol 3-0 Yes [id number] 25mg Take 1 U nivers succinate 7-13 tablet by ity o f XL 25 mg 24 00:00: mouth in [place] hr tablet 00 the Medical morning. Branch levETIRAcet 3-0 Yes [id number] 1000mg Take 10 mL [facility] am (KEPPRA) 7-13 by mouth ity of 100 mg/mL 00:00: in the [place] oral 00 morning Medical solution and 10 mL Branch in the evening. metoprolol 3-0 Yes [id number] 25mg Take 1 U nivers succinate 7-13 tablet by ity o f XL 25 mg 24 00:00: mouth in [place] hr tablet 00 the Medical morning. Branch levETIRAcet 2022-0 Yes [id number] 1000mg Take 10 mL [facility] am (KEPPRA) 7-13 by mouth ity of 100 mg/mL 00:00: in the [place] oral 00 morning Medical solution and 10 mL Branch in the evening. metoprolol 2022-0 Yes [id number] 25mg Take 1 U nivers succinate 7-13 tablet by ity o f XL 25 mg 24 00:00: mouth in [place] hr tablet 00 the Medical morning. Branch levETIRAcet 2022-0 Yes [id number] 1000mg Take 10 mL [facility] am (KEPPRA) 7-13 by mouth ity of 100 mg/mL 00:00: in the [place] oral 00 morning Medical solution and 10 mL Branch in the evening. metoprolol 3-0 Yes [id number] 25mg Take 1 U nivers succinate 7-13 tablet by ity o f XL 25 mg 24 00:00: mouth in [place] hr tablet 00 the Medical morning. Branch levETIRAcet 3-0 Yes [id number] 1000mg Take 10 mL [facility] am (KEPPRA) 7-13 by mouth ity of 100 mg/mL 00:00: in the [place] oral 00 morning Medical solution and 10 mL Branch in the evening. metoprolol 3-0 Yes [id number] 25mg Take 1 U nivers succinate 7-13 tablet by ity o f XL 25 mg 24 00:00: mouth in [place] hr tablet 00 the Medical morning. Branch levETIRAcet 3-0 Yes [id number] 1000mg Take 10 mL [facility] am (KEPPRA) 7-13 by mouth ity of 100 mg/mL 00:00: in the [place] oral 00 morning Medical solution and 10 mL Branch in the evening. metoprolol 3-0 Yes [id number] 25mg Take 1 U nivers succinate 7-13 tablet by ity o f XL 25 mg 24 00:00: mouth in [place] hr tablet 00 the Medical morning. Branch levETIRAcet 3-0 Yes [id number] 1000mg Take 10 mL [facility] am (KEPPRA) 7-13 by mouth ity of 100 mg/mL 00:00: in the [place] oral 00 morning Medical solution and 10 mL Branch in the evening. metoprolol 2022-0 Yes [id number] 25mg Take 1 U nivers succinate 7-13 tablet by ity o f XL 25 mg 24 00:00: mouth in [place] hr tablet 00 the Medical morning. Branch levETIRAcet 2022-0 Yes [id number] 1000mg Take 10 mL [facility] am (KEPPRA) 7-13 by mouth ity of 100 mg/mL 00:00: in the [place] oral 00 morning Medical solution and 10 mL Branch in the evening. metoprolol 2022-0 Yes [id number] 25mg Take 1 U nivers succinate 7-13 tablet by ity o f XL 25 mg 24 00:00: mouth in [place] hr tablet 00 the Medical morning. Branch levETIRAcet 2022-0 Yes [id number] 1000mg Take 10 mL [facility] am (KEPPRA) 7-13 by mouth ity of 100 mg/mL 00:00: in the [place] oral 00 morning Medical solution and 10 mL Branch in the evening. metoprolol 3-0 Yes [id number] 25mg Take 1 U nivers succinate 7-13 tablet by ity o f XL 25 mg 24 00:00: mouth in [place] hr tablet 00 the Medical morning. Branch levETIRAcet 3-0 Yes [id number] 1000mg Take 10 mL [facility] am (KEPPRA) 7-13 by mouth ity of 100 mg/mL 00:00: in the [place] oral 00 morning Medical solution and 10 mL Branch in the evening. metoprolol 3-0 Yes [id number] 25mg Take 1 U nivers succinate 7-13 tablet by ity o f XL 25 mg 24 00:00: mouth in [place] hr tablet 00 the Medical morning. Branch levETIRAcet 2022-0 Yes [id number] 1000mg Take 10 mL [facility] am (KEPPRA) 7-13 by mouth ity of 100 mg/mL 00:00: in the [place] oral 00 morning Medical solution and 10 mL Branch in the evening. metoprolol 3-0 Yes [id number] 25mg Take 1 U nivers succinate 7-13 tablet by ity o f XL 25 mg 24 00:00: mouth in [place] hr tablet 00 the Medical morning. Branch levETIRAcet 2022-0 Yes [id number] 1000mg Take 10 mL [facility] am (KEPPRA) 7-13 by mouth ity of 100 mg/mL 00:00: in the [place] oral 00 morning Medical solution and 10 mL Branch in the evening. metoprolol 2022-0 Yes [id number] 25mg Take 1 U nivers succinate 7-13 tablet by ity o f XL 25 mg 24 00:00: mouth in [place] hr tablet 00 the Medical morning. Branch levETIRAcet 2022-0 Yes [id number] 1000mg Take 10 mL [facility] am (KEPPRA) 7-13 by mouth ity of 100 mg/mL 00:00: in the [place] oral 00 morning Medical solution and 10 mL Branch in the evening. metoprolol 2022-0 Yes [id number] 25mg Take 1 U nivers succinate 7-13 tablet by ity o f XL 25 mg 24 00:00: mouth in [place] hr tablet 00 the Medical morning. Branch levETIRAcet 3-0 Yes [id number] 1000mg Take 10 mL [facility] am (KEPPRA) 7-13 by mouth ity of 100 mg/mL 00:00: in the [place] oral 00 morning Medical solution and 10 mL Branch in the evening. metoprolol 3-0 Yes [id number] 25mg Take 1 U nivers succinate 7-13 tablet by ity o f XL 25 mg 24 00:00: mouth in [place] hr tablet 00 the Medical morning. Branch levETIRAcet 3-0 Yes [id number] 1000mg Take 10 mL [facility] am (KEPPRA) 7-13 by mouth ity of 100 mg/mL 00:00: in the [place] oral 00 morning Medical solution and 10 mL Branch in the evening. metoprolol 3-0 Yes [id number] 25mg Take 1 U nivers succinate 7-13 tablet by ity o f XL 25 mg 24 00:00: mouth in [place] hr tablet 00 the Medical morning. Branch levETIRAcet 3-0 Yes [id number] 1000mg Take 10 mL [facility] am (KEPPRA) 7-13 by mouth ity of 100 mg/mL 00:00: in the [place] oral 00 morning Medical solution and 10 mL Branch in the evening. metoprolol 3-0 Yes [id number] 25mg Take 1 U nivers succinate 7-13 tablet by ity o f XL 25 mg 24 00:00: mouth in [place] hr tablet 00 the Medical morning. Branch levETIRAcet 2022-0 Yes [id number] 1000mg Take 10 mL [facility] am (KEPPRA) 7-13 by mouth ity of 100 mg/mL 00:00: in the [place] oral 00 morning Medical solution and 10 mL Branch in the evening. metoprolol 2022-0 Yes [id number] 25mg Take 1 U nivers succinate 7-13 tablet by ity o f XL 25 mg 24 00:00: mouth in [place] hr tablet 00 the Medical morning. Branch levETIRAcet 2022-0 Yes [id number] 1000mg Take 10 mL [facility] am (KEPPRA) 7-13 by mouth ity of 100 mg/mL 00:00: in the [place] oral 00 morning Medical solution and 10 mL Branch in the evening. metoprolol 3-0 Yes [id number] 25mg Take 1 U nivers succinate 7-13 tablet by ity o f XL 25 mg 24 00:00: mouth in [place] hr tablet 00 the Medical morning. Branch levETIRAcet 3-0 Yes [id number] 1000mg Take 10 mL [facility] am (KEPPRA) 7-13 by mouth ity of 100 mg/mL 00:00: in the [place] oral 00 morning Medical solution and 10 mL Branch in the evening. metoprolol 3-0 Yes [id number] 25mg Take 1 U nivers succinate 7-13 tablet by ity o f XL 25 mg 24 00:00: mouth in [place] hr tablet 00 the Medical morning. Branch levETIRAcet 3-0 Yes [id number] 1000mg Take 10 mL [facility] am (KEPPRA) 7-13 by mouth ity of 100 mg/mL 00:00: in the [place] oral 00 morning Medical solution and 10 mL Branch in the evening. metoprolol 3-0 Yes [id number] 25mg Take 1 U nivers succinate 7-13 tablet by ity o f XL 25 mg 24 00:00: mouth in [place] hr tablet 00 the Medical morning. Branch levETIRAcet 3-0 Yes [id number] 1000mg Take 10 mL [facility] am (KEPPRA) 7-13 by mouth ity of 100 mg/mL 00:00: in the [place] oral 00 morning Medical solution and 10 mL Branch in the evening. metoprolol 3-0 Yes [id number] 25mg Take 1 U nivers succinate 7-13 tablet by ity o f XL 25 mg 24 00:00: mouth in [place] hr tablet 00 the Medical morning. Branch levETIRAcet 3-0 Yes [id number] 1000mg Take 10 mL [facility] am (KEPPRA) 7-13 by mouth ity of 100 mg/mL 00:00: in the [place] oral morning Medical solution and 10 mL Branch in the evening. metoprolol 3-0 Yes [id number] 25mg Take 1 U nivers succinate 7-13 tablet by ity o f XL 25 mg 24 00:00: mouth in [place] hr tablet 00 the Medical morning. Branch levETIRAcet 3-0 Yes [id number] 1000mg Take 10 mL [facility] am (KEPPRA) 7-13 by mouth ity of 100 mg/mL 00:00: in the [place] oral 00 morning Medical solution and 10 mL Branch in the evening. metoprolol 3-0 Yes [id number] 25mg Take 1 U nivers succinate 7-13 tablet by ity o f XL 25 mg 24 00:00: mouth in [place] hr tablet 00 the Medical morning. Branch levETIRAcet 3-0 Yes [id number] 1000mg Take 10 mL [facility] am (KEPPRA) 7-13 by mouth ity of 100 mg/mL 00:00: in the [place] oral 00 morning Medical solution and 10 mL Branch in the evening. metoprolol 3-0 Yes [id number] 25mg Take 1 U nivers succinate 7-13 tablet by ity o f XL 25 mg 24 00:00: mouth in [place] hr tablet 00 the Medical morning. Branch levETIRAcet 3-0 Yes [id number] 1000mg Take 10 mL [facility] am (KEPPRA) 7-13 by mouth ity of 100 mg/mL 00:00: in the [place] oral 00 morning Medical solution and 10 mL Branch in the evening. metoprolol 3-0 Yes [id number] 25mg Take 1 U nivers succinate 7-13 tablet by ity o f XL 25 mg 24 00:00: mouth in [place] hr tablet 00 the Medical morning. Branch levETIRAcet 3-0 Yes [id number] 1000mg Take 10 mL [facility] am (KEPPRA) 7-13 by mouth ity of 100 mg/mL 00:00: in the [place] oral 00 morning Medical solution and 10 mL Branch in the evening. metoprolol 3-0 Yes [id number] 25mg Take 1 U nivers succinate 7-13 tablet by ity o f XL 25 mg 24 00:00: mouth in [place] hr tablet 00 the Medical morning. Branch levETIRAcet 3-0 Yes [id number] 1000mg Take 10 mL [facility] am (KEPPRA) 7-13 by mouth ity of 100 mg/mL 00:00: in the [place] oral morning Medical solution and 10 mL Branch in the evening. metoprolol 3-0 Yes [id number] 25mg Take 1 U nivers succinate 7-13 tablet by ity o f XL 25 mg 24 00:00: mouth in [place] hr tablet 00 the Medical morning. Branch levETIRAcet 3-0 Yes [id number] 1000mg Take 10 mL [facility] am (KEPPRA) 7-13 by mouth ity of 100 mg/mL 00:00: in the [place] oral 00 morning Medical solution and 10 mL Branch in the evening. metoprolol 3-0 Yes [id number] 25mg Take 1 U nivers succinate 7-13 tablet by ity o f XL 25 mg 24 00:00: mouth in [place] hr tablet 00 the Medical morning. Branch levETIRAcet 3-0 Yes [id number] 1000mg Take 10 mL [facility] am (KEPPRA) 7-13 by mouth ity of 100 mg/mL 00:00: in the [place] oral 00 morning Medical solution and 10 mL Branch in the evening. metoprolol 2023-0 Yes [id number] 25mg Take 1 U nivers succinate 7-13 tablet by ity o f XL 25 mg 24 00:00: mouth in [place] hr tablet 00 the Medical morning. Branch levETIRAcet 2022-0 Yes [id number] 1000mg Take 10 mL [facility] am (KEPPRA) 7-13 by mouth ity of 100 mg/mL 00:00: in the [place] oral 00 morning Medical solution and 10 mL Branch in the evening. metoprolol 2022-0 Yes [id number] 25mg Take 1 U nivers succinate 7-13 tablet by ity o f XL 25 mg 24 00:00: mouth in [place] hr tablet 00 the Medical morning. Branch levETIRAcet 2022-0 Yes [id number] 1000mg Take 10 mL [facility] am (KEPPRA) 7-13 by mouth ity of 100 mg/mL 00:00: in the [place] oral 00 morning Medical solution and 10 mL Branch in the evening. metoprolol 2022-0 Yes [id number] 25mg Take 1 U nivers succinate 7-13 tablet by ity o f XL 25 mg 24 00:00: mouth in [place] hr tablet 00 the Medical morning. Branch levETIRAcet 2022-0 Yes [id number] 1000mg Take 10 mL [facility] am (KEPPRA) 7-13 by mouth ity of 100 mg/mL 00:00: in the [place] oral 00 morning Medical solution and 10 mL Branch in the evening. metoprolol 2022-0 Yes [id number] 25mg Take 1 U nivers succinate 7-13 tablet by ity o f XL 25 mg 24 00:00: mouth in [place] hr tablet 00 the Medical morning. Branch levETIRAcet 2022-0 Yes [id number] 1000mg Take 10 mL [facility] am (KEPPRA) 7-13 by mouth ity of 100 mg/mL 00:00: in the [place] oral 00 morning Medical solution and 10 mL Branch in the evening. metoprolol 2022-0 Yes [id number] 25mg Take 1 U nivers succinate 7-13 tablet by ity o f XL 25 mg 24 00:00: mouth in [place] hr tablet 00 the Medical morning. Branch levETIRAcet 2022-0 Yes [id number] 1000mg Take 10 mL [facility] am (KEPPRA) 7-13 by mouth ity of 100 mg/mL 00:00: in the [place] oral 00 morning Medical solution and 10 mL Branch in the evening. metoprolol 3-0 Yes [id number] 25mg Take 1 U nivers succinate 7-13 tablet by ity o f XL 25 mg 24 00:00: mouth in [place] hr tablet 00 the Medical morning. Branch levETIRAcet 3-0 Yes [id number] 1000mg Take 10 mL [facility] am (KEPPRA) 7-13 by mouth ity of 100 mg/mL 00:00: in the [place] oral 00 morning Medical solution and 10 mL Branch in the evening. metoprolol 3-0 Yes [id number] 25mg Take 1 U nivers succinate 7-13 tablet by ity o f XL 25 mg 24 00:00: mouth in [place] hr tablet 00 the Medical morning. Branch levETIRAcet 3-0 Yes [id number] 1000mg Take 10 mL [facility] am (KEPPRA) 7-13 by mouth ity of 100 mg/mL 00:00: in the [place] oral 00 morning Medical solution and 10 mL Branch in the evening. metoprolol 2022-0 Yes [id number] 25mg Take 1 U nivers succinate 7-13 tablet by ity o f XL 25 mg 24 00:00: mouth in [place] hr tablet 00 the Medical morning. Branch levETIRAcet 3-0 Yes [id number] 1000mg Take 10 mL [facility] am (KEPPRA) 7-13 by mouth ity of 100 mg/mL 00:00: in the [place] oral 00 morning Medical solution and 10 mL Branch in the evening. metoprolol 3-0 Yes [id number] 25mg Take 1 U nivers succinate 7-13 tablet by ity o f XL 25 mg 24 00:00: mouth in [place] hr tablet 00 the Medical morning. Branch levETIRAcet 3-0 Yes [id number] 1000mg Take 10 mL [facility] am (KEPPRA) 7-13 by mouth ity of 100 mg/mL 00:00: in the [place] oral 00 morning Medical solution and 10 mL Branch in the evening. metoprolol 2023-0 Yes [id number] 25mg Take 1 U nivers succinate 7-13 tablet by ity o f XL 25 mg 24 00:00: mouth in [place] hr tablet 00 the Medical morning. Branch levETIRAcet 2022-0 Yes [id number] 1000mg Take 10 mL [facility] am (KEPPRA) 7-13 by mouth ity of 100 mg/mL 00:00: in the [place] [address] morning Medical solution and 10 mL Branch in the evening. metoprolol 2022-0 Yes [id number] 25mg Take 1 U nivers succinate 7-13 tablet by ity o f XL 25 mg 24 00:00: mouth in [place] hr tablet 00 the Medical morning. Branch levETIRAcet 2022-0 Yes [id number] 1000mg Take 10 mL [facility] am (KEPPRA) 7-13 by mouth ity of 100 mg/mL 00:00: in the [place] [address] morning Medical solution and 10 mL Branch in the evening. metoprolol 2022-0 Yes [id number] 25mg Take 1 U nivers succinate 7-13 tablet by ity o f XL 25 mg 24 00:00: mouth in [place] hr tablet 00 the Medical morning. Branch levETIRAcet 2022-0 Yes [id number] 1000mg Take 10 mL [facility] am (KEPPRA) 7-13 by mouth ity of 100 mg/mL 00:00: in the [place] [address] morning Medical solution and 10 mL Branch in the evening. metoprolol 2022-0 Yes [id number] 25mg Take 1 U nivers succinate 7-13 tablet by ity o f XL 25 mg 24 00:00: mouth in [place] hr tablet 00 the Medical morning. Branch ketorolac 2022- No 60mg 60 mg, Unive rs (TORADOL) 01-21 Intramuscu ity of injection 04:00: 03:39 lar, ONCE, [place] 60 mg 00 :00 1 dose, On Wed01/20/23 Branch at 2300, [place] HYDROcodone 2022- No 1{tbl} 1 tablet, Univers -acetaminop 01-18 Oral, ity of hen (NORCO 15:00: 17:33 ONCE, 1 [place] 5) 5-325 mg 00 :00 dose, On Medi cherie tablet 1 Wed01/18/23 Bran h tablet at 1000, Routine, PACU HYDROcodone 2022-0 3- No 1{tbl} 1 tablet, Univers -acetaminop 01-18 [...] No .2mg 0.2 mg, [place] 01-18- Slow IV ity of (DILAUDID) 14:56: 20:17 [...] ity o f (PF)) 14:56: 20:17 Push, [place] injection 40 :01 Q5MIN PRN, Medi cherie [...] for ity of N NASAL 13:17: migraines [address] Yes Apply to [place] 0.1% in 01-18 affected ity o f aquaphor 13:17: area(s). [place] (COMPOUND Medical ) ointment Branch ARIPiprazol Yes by [facility] s e (01-18 Intramuscu ity of [facility]) 13:17: lar route [place] 300 mg sers 01 once every Me dical month. Branch cariprazine Yes 1{capsu Take 1 U nivers (VRAYLAR) 3 01-18 le} capsule by it y of mg Cap 13:17: mouth in [place] [address] the Medical morning Branch and 1 capsule in the evening. IMITREX 5 Yes as needed Uni vers MG/ACTUATIO 01-18 for ity of N NASAL 13:17: migraines [address] Yes Apply to [place] 0.1% in 01-18 affected ity o f aquaphor 13:17: area(s). [place] (COMPOUNDED Medical ) ointment Branch ARIPiprazol Yes by [facility] s e (ABILIFY 01-18 Intramuscu ity of [facility]) 13:17: lar route [place] 300 mg sers 01 once every Me dical month. Branch cariprazine Yes 1{capsu Take 1 U nivers (VRAYLAR) 3 7- le} capsule by it y of mg Cap 13:17: mouth in [place] the Medical morning Branch and 1 capsule in the evening. IMITREX 5 Yes as needed Uni vers MG/ACTUATIO 7 for ity of N NASAL 13:17: [facility] Yes Apply to [place] 0.1% in 01-18 affected ity o f aquaphor 13:17: area(s). [place] (COMPOUNDED Medical ) ointment Branch ARIPiprazol Yes by Univer s e (ABILIFY 01-18 Intramuscu ity of [facility]) 13:17: lar route [place] 300 mg sers 01 once every Me dical month. Branch cariprazine Yes 1{capsu Take 1 U nivers (VRAYLAR) 3 01-18 le} capsule by it y of mg Cap 13:17: mouth in [place] the Medical morning Branch and 1 capsule in the evening. IMITREX 5 Yes as needed Uni vers MG/ACTUATIO 01-18 for ity of N NASAL 13:17: [facility] Yes Apply to [place] 0.1% in 01-18 affected ity o f aquaphor 13:17: area(s). [place] (COMPOUNDED 01 Medical ) ointment Branch ARIPiprazol Yes by Univer s e (ABILIFY 01-18 Intramuscu ity of [facility]) 13:17: lar route [place] 300 mg sers 01 once every Me dical month. Branch cariprazine Yes 1{capsu Take 1 U nivers (VRAYLAR) 3 7-03 le} capsule by it y of mg Cap 13:17: mouth in [place] the Medical morning Branch and 1 capsule in the evening. IMITREX 5 0 Yes as needed Uni vers MG/ACTUATIO 7 for ity of N NASAL 13:17: migraines [facility] Medical Branch [facility] Yes Apply to [place] 0.1% in 01-18 affected ity o f aquaphor 13:17: area(s). [place] (COMPOUNDED Medical ) ointment Branch ARIPiprazol Yes by Univer s e (ABILIFY 01-18 Intramuscu ity of [facility]) 13:17: lar route [place] 300 mg sers 01 once every Me dical month. Branch cariprazine Yes 1{capsu Take 1 U nivers (VRAYLAR) 3 7-03 le} capsule by it y of mg Cap 13:17: mouth in [place] the Medical morning Branch and 1 capsule in the evening. IMITREX 5 Yes as needed Uni vers MG/ACTUATIO 01-18 for ity of N NASAL 13:17: migraines [address] Branch [facility] Yes Apply to [place] 0.1% in 01-18 affected ity o f aquaphor 13:17: area(s). [place] (COMPOUNDED Medical ) ointment Branch ARIPiprazol Yes by Univer s e (ABILIFY 01-18 [facility]cu [facility] 13:17: lar route [place] 300 mg sers 01 once every Me dical month. Branch IMITREX 5 Yes as needed Uni vers MG/ACTUATIO 01-18 for ity of N NASAL 13:17: migraines [place] [address] Medical Branch [facility] Yes Apply to [place] 0.1% in 01-18 affected ity o f aquaphor 13:17: area(s). [place] (COMPOUNDED Medical ) ointment Branch ARIPiprazol Yes by Univer s e (ABILIFY 01-18 Intramuscu ity of [facility]) 13:17: lar route [place] 300 mg sers 01 once every Me dical month. Branch cariprazine Yes 1{capsu Take 1 U nivers (VRAYLAR) 3 7-03 le} capsule by it y of mg Cap 13:17: mouth in [place] the Medical morning Branch and 1 capsule in the evening. IMITREX 5 Yes as needed Uni vers MG/ACTUATIO 01-18 for ity of N NASAL 13:17: migraines [place] SPRY Medical Branch [facility] Yes Apply to [place] 0.1% in 01-18 affected ity o f aquaphor 13:17: area(s). [place] [facility] oint[facility] Branch ARIPiprazol Yes by Univer s e (ABILIFY 01-18 Intramuscu ity of [facility]) 13:17: lar route [place] 300 mg sers once every Me dical month. Branch cariprazine Yes 1{capsu Take 1 U nivers (VRAYLAR) 3 01-18 le} capsule by it y of mg Cap 13:17: mouth in [place] the Medical morning Branch and 1 capsule in the evening. traMADoL 50 2022- No [id number] 50mg Take 1 Uni vers mg tablet 01-1811 tablet by ity of 00:00: 04:59 mouth [place] 00 :00 every 6 Medical (six) Branch hours as needed for Pain (scale 4-6) or Pain (scale 7-10) for up to 7 days. Indication s: acute pain traMADoL 50 2022- No [id number] 50mg Take 1 Uni vers mg tablet 01-1811 tablet by ity of 00:00: 04:59 mouth [place] 00 :00 every 6 Medical (six) Branch hours as needed for Pain (scale 4-6) or Pain (scale 7-10) for up to 7 days. Indication s: acute pain traMADoL 50 0 2022- No [id number] 50mg Take 1 Uni vers mg tablet 01-18-11 tablet by ity of 00:00: 04:59 mouth [place] 00 :00 every 6 Medical (six) Branch hours as needed for Pain (scale 4-6) or Pain (scale 7-10) for up to 7 days. Indication s: acute pain IMITREX 5 Yes as needed Uni vers MG/ACTUATIO 01-14 for ity of N NASAL 12:08: migraines [address] Yes Apply to Un [place] 0.1% in 01-14 affected ity o f aquaphor 12:08: area(s). [place] ([address] ) ointment Branch ARIPiprazol Yes by Univer s e (ABILIFY 6-29 Intramuscu ity of [facility]) 12:08: lar route [place] 300 mg sers 17 once every Me dical month. Branch cariprazine Yes 1{capsu Take 1 U nivers (VRAYLAR) 3 6-29 le} capsule by it y of mg Cap 12:08: mouth in [place] [address] the Medical morning Branch and 1 capsule in the evening. IMITREX 5 Yes as needed Uni vers MG/ACTUATIO 6-29 for ity of N NASAL 12:08: migraines [address] Yes Apply to [place] 0.1% in 01-14 affected ity o f aquaphor 12:08: area(s). [place] ([address] ) ointment Branch ARIPiprazol Yes by Univer s e (ABILIFY 6-29 Intramuscu ity of [facility]) 12:08: lar route [place] 300 mg sers 17 once every Me dical month. Branch cariprazine Yes 1{capsu Take 1 U nivers (VRAYLAR) 3 6-29 le} capsule by it y of mg Cap 12:08: mouth in [place] [address] the Medical morning Branch and 1 capsule in the evening. IMITREX 5 0 Yes as needed Uni vers MG/ACTUATIO 6-29 for ity of N NASAL 12:08: migraines [address] Yes Apply to [place] 0.1% in 01-14 affected ity o f aquaphor 12:08: area(s). [place] (COMPOUNDED Medical ) ointment Branch ARIPiprazol Yes by Univer s e (ABILIFY 6-29 Intramuscu ity of [facility]) 12:08: lar route [...] 50mg Take 1 Uni vers mg tablet 01-08 08-08 tablet by ity of 00:00: 00:00 mouth as [place] 00 :00 needed. Medical Branch traMADoL 50 2022-0 3- No 50mg Take 1 Uni vers mg tablet 01-08-08 tablet by ity of 00:00: 00:00 mouth as [place] 00 :00 needed. Medical Branch traMADoL 50 2022-0 3- No 50mg Take 1 Uni vers mg tablet 01-08-08 tablet by ity of 00:00: 00:00 mouth as [place] 00 :00 needed. Medical Branch traMADoL 50 2022-0 3- No 50mg Take 1 Uni vers mg tablet 01-08-08 tablet by ity of 00:00: 00:00 mouth [...] acetaminoph 3-0 Yes 1{tbl} Take 1 Un geln en-codeine 6-20 tablet by ity of 300-30 [...] it y of cream 00:00: to area(s) [place] [address] as needed. Medical Branch nystatin Yes 1{dose} Apply 1 Uni vers 100,000 6-16 Dose to ity of unit/gram 00:00: area(s) in [place] cream 00 the Medical morning. Branch terbinafine Yes 1{dose} Apply 1 [facility] HCL 1 % 6-16 Dose to ity of cream 00:00: area(s) in [place] 00 the Medical morning. Branch hydrocortis Yes 1{appli Apply 1 [facility] one 2.5 % 6-16 cator} Applicator it y of cream 00:00: to area(s) [place] 00 as needed. Medical Branch nystatin 2023-0 Yes 1{dose} Apply 1 [facility] vers 100,000 6-16 Dose to ity of unit/gram 00:00: area(s) in [place] cream 00 the Medical morning. Branch terbinafine 2022-0 Yes 1{dose} Apply 1 [facility] HCL 1 % 6-16 Dose to ity of cream 00:00: area(s) in [place] 00 the Medical morning. Branch hydrocortis 2022-0 [...] to ity of cream 00:00: area(s) in [place] 00 the Medical morning. Branch hydrocortis 2022-0 Yes 1{appli Apply 1 [facility] one 2.5 % 6-16 cator} Applicator it y of cream 00:00: to area(s) [place] [address] as needed. Medical Branch nystatin 2022-0 Yes 1{dose} Apply 1 [facility] vers 100,000 6-16 Dose to ity of unit/gram 00:00: area(s) in [place] cream 00 the Medical morning. Branch terbinafine 2022-0 Yes 1{dose} Apply 1 [facility] HCL 1 % 6-16 Dose to ity of cream 00:00: area(s) in [place] 00 the Medical morning. Branch hydrocortis 2022-0 Yes 1{appli Apply 1 [facility] one 2.5 % 6-16 cator} Applicator it y of cream 00:00: to area(s) [place] [address] as needed. Medical Branch nystatin 2022-0 Yes 1{dose} Apply 1 [facility] vers 100,000 6-16 Dose to ity of unit/gram 00:00: area(s) in [place] cream 00 the Medical morning. Branch terbinafine 2022-0 Yes 1{dose} Apply 1 [facility] HCL 1 % 6-16 Dose to ity of cream 00:00: area(s) in [place] 00 the Medical morning. Branch hydrocortis 2022-0 Yes 1{appli Apply 1 [facility] one 2.5 % 6-16 cator} Applicator it y of cream 00:00: to area(s) [place] [address] as needed. Medical Branch nystatin 2022-0 Yes 1{dose} Apply 1 [facility] vers 100,000 6-16 Dose to ity of unit/gram 00:00: area(s) in [facility] 00 the Medical morning. Branch terbinafine 2022-0 Yes 1{dose} Apply 1 [facility] HCL 1 % 6-16 Dose to ity of cream 00:00: area(s) in [place] [address] the Medical morning. Branch hydrocortis 2022-0 Yes 1{appli Apply 1 [facility] one 2.5 % 6-16 cator} Applicator it y of cream 00:00: to area(s) [place] [address] as needed. Medical Branch nystatin 2022-0 Yes 1{dose} Apply 1 [facility] vers 100,000 6-16 Dose to ity of unit/gram 00:00: area(s) in [facility] 00 the Medical morning. Branch terbinafine 2022-0 Yes 1{dose} Apply 1 [facility] HCL 1 % 6-16 Dose to ity of cream 00:00: area(s) in [place] 00 the Medical morning. Branch hydrocortis 2022-0 Yes 1{appli Apply 1 [facility] one 2.5 % 6-16 cator} Applicator it y of cream 00:00: to area(s) [place] [address] as needed. Medical Branch nystatin 2022-0 Yes 1{dose} Apply 1 [facility] vers 100,000 6-16 Dose to ity of unit/gram 00:00: area(s) in [facility] cream 00 the Medical morning. Branch terbinafine 2022-0 Yes 1{dose} Apply 1 [facility] HCL 1 % 6-16 Dose to ity of cream 00:00: area(s) in [place] 00 the Medical morning. Branch hydrocortis 2022-0 Yes 1{appli Apply 1 [facility] one 2.5 % 6-16 cator} Applicator it y of cream 00:00: to area(s) [place] [address] as needed. Medical Branch nystatin 2022-0 Yes [...] to ity of cream 00:00: area(s) in [place] 00 the Medical morning. Branch hydrocortis 2022-0 Yes 1{appli Apply 1 [facility] one 2.5 % 6-16 cator} Applicator it y of cream 00:00: to area(s) [place] [address] as needed. Medical Branch nystatin 2022-0 Yes 1{dose} Apply 1 [facility] vers 100,000 6-16 Dose to ity of unit/gram 00:00: area(s) in [place] cream 00 the Medical morning. Branch terbinafine 2022-0 Yes 1{dose} Apply 1 [facility] HCL 1 % 6-16 Dose to ity of cream 00:00: area(s) in [place] 00 the Medical morning. Branch hydrocortis 2022-0 Yes 1{appli Apply 1 [facility] one 2.5 % 6-16 cator} Applicator it y of cream 00:00: to area(s) [place] [address] as needed. Medical Branch nystatin 2022-0 Yes 1{dose} Apply 1 [facility] vers 100,000 6-16 Dose to ity of unit/gram 00:00: area(s) in [place] cream 00 the Medical morning. Branch terbinafine 2022-0 Yes 1{dose} Apply 1 [facility] HCL 1 % 6-16 Dose to ity of cream 00:00: area(s) in [place] 00 the Medical morning. Branch hydrocortis 2022-0 Yes 1{appli Apply 1 [facility] one 2.5 % 6-16 cator} Applicator it y of cream 00:00: to area(s) [place] [address] as needed. Medical Branch nystatin 2022-0 Yes 1{dose} Apply 1 [facility] vers 100,000 6-16 Dose to ity of unit/gram 00:00: area(s) in [place] cream 00 the Medical morning. Branch terbinafine 2022-0 Yes 1{dose} Apply 1 [facility] HCL 1 % 6-16 Dose to ity of cream 00:00: area(s) in [place] 00 the Medical morning. Branch hydrocortis 2022-0 Yes 1{appli Apply 1 [facility] one 2.5 % 6-16 cator} Applicator it y of cream 00:00: to area(s) [place] [address] as needed. Medical Branch nystatin 2022-0 Yes 1{dose} Apply 1 [facility] vers 100,000 6-16 Dose to ity of unit/gram 00:00: area(s) in [facility] cream 00 the Medical morning. Branch terbinafine 2022-0 Yes 1{dose} Apply 1 [facility] HCL 1 % 6-16 Dose to ity of cream 00:00: area(s) in [place] 00 the Medical morning. Branch hydrocortis 2022-0 Yes 1{appli Apply 1 [facility] one 2.5 % 6-16 cator} Applicator it y of cream 00:00: to area(s) [place] [address] as needed. Medical Branch nystatin 2022-0 Yes 1{dose} Apply 1 [facility] vers 100,000 6-16 Dose to ity of unit/gram 00:00: area(s) in [place] cream 00 the Medical morning. Branch terbinafine 2022-0 Yes 1{dose} Apply 1 [facility] HCL 1 % 6-16 Dose to ity of cream 00:00: area(s) in [place] 00 the Medical morning. Branch hydrocortis 2022-0 Yes 1{appli Apply 1 [facility] one 2.5 % 6-16 cator} Applicator it y of cream 00:00: to area(s) [place] [address] as needed. Medical Branch nystatin 2022-0 Yes [...] to ity of cream 00:00: area(s) in [place] 00 the Medical morning. Branch hydrocortis 2022-0 Yes 1{appli Apply 1 [facility] one 2.5 % 6-16 cator} Applicator it y of cream 00:00: to area(s) [place] [address] as needed. Medical Branch nystatin 2022-0 Yes 1{dose} Apply 1 [facility] vers 100,000 6-16 Dose to ity of unit/gram 00:00: area(s) in [place] cream 00 the Medical morning. Branch terbinafine 2022-0 Yes 1{dose} Apply 1 [facility] HCL 1 % 6-16 Dose to ity of cream 00:00: area(s) in [place] 00 the Medical morning. Branch hydrocortis 2022-0 Yes 1{appli Apply 1 [facility] one 2.5 % 6-16 cator} Applicator it y of cream 00:00: to area(s) [place] [address] as needed. Medical Branch nystatin 2022-0 Yes [...] it y of cream 00:00: to area(s) [place] [address] as needed. Medical Branch nystatin 3-0 Yes 1{dose} Apply 1 [facility] vers 100,000 6-16 Dose to ity of unit/gram 00:00: area(s) in [place] cream 00 the Medical morning. Branch terbinafine 3-0 Yes 1{dose} Apply 1 [facility] HCL 1 % 6-16 Dose to ity of cream 00:00: area(s) in [place] 00 the Medical morning. Branch hydrocortis 2022-0 Yes 1{appli Apply 1 [facility] one 2.5 % 6-16 cator} Applicator it y of cream 00:00: to area(s) [place] [address] as needed. Medical Branch nystatin 2022-0 Yes 1{dose} Apply 1 [facility] vers 100,000 6-16 Dose to ity of unit/gram 00:00: area(s) in [place] cream 00 the Medical morning. Branch terbinafine 2022-0 Yes 1{dose} Apply 1 [facility] HCL 1 % 6-16 Dose to ity of cream 00:00: area(s) in [place] 00 the Medical morning. Branch hydrocortis 2022-0 Yes 1{appli Apply 1 [facility] one 2.5 % 6-16 cator} Applicator it y of cream 00:00: to area(s) [place] [address] as needed. Medical Branch nystatin 2022-0 Yes 1{dose} Apply 1 [facility] vers 100,000 6-16 Dose to ity of unit/gram 00:00: area(s) in [place] cream 00 the Medical morning. Branch terbinafine 2022-0 Yes 1{dose} Apply 1 [facility] HCL 1 % 6-16 Dose to ity of cream 00:00: area(s) in [place] 00 the Medical morning. Branch hydrocortis 3-0 Yes 1{appli Apply 1 [facility] one 2.5 % 6-16 cator} Applicator it y of cream 00:00: to area(s) [place] [address] as needed. Medical Branch nystatin 3-0 Yes [...] it y of cream 00:00: to area(s) [place] 00 as needed. Medical Branch nystatin 2022-0 Yes 1{dose} Apply 1 [facility] vers 100,000 6-16 Dose to ity of unit/gram 00:00: area(s) in [place] cream 00 the Medical morning. Branch terbinafine 2022-0 Yes 1{dose} Apply 1 [facility] HCL 1 % 6-16 Dose to ity of cream 00:00: area(s) in [place] 00 the Medical morning. Branch hydrocortis 2022-0 Yes 1{appli Apply 1 [facility] one 2.5 % 6-16 cator} Applicator it y of cream 00:00: to area(s) [place] 00 as needed. Medical Branch nystatin 2022-0 Yes 1{dose} Apply 1 [facility] vers 100,000 6-16 Dose to ity of unit/gram 00:00: area(s) in [place] cream 00 the Medical morning. Branch terbinafine 2022-0 Yes 1{dose} Apply 1 [facility] HCL 1 % 6-16 Dose to ity of cream 00:00: area(s) in [place] 00 the Medical morning. Branch hydrocortis 2022-0 Yes 1{appli Apply 1 [facility] one 2.5 % 6-16 cator} Applicator it y of cream 00:00: to area(s) [place] [address] as needed. Medical Branch nystatin 2022-0 Yes 1{dose} Apply 1 [facility] vers 100,000 6-16 Dose to ity of unit/gram 00:00: area(s) in [place] cream 00 the Medical morning. Branch terbinafine 2022-0 Yes 1{dose} Apply 1 [facility] HCL 1 % 6-16 Dose to ity of cream 00:00: area(s) in [place] 00 the Medical morning. Branch hydrocortis 2022-0 Yes 1{appli Apply 1 [facility] one 2.5 % 6-16 cator} Applicator it y of cream 00:00: to area(s) [place] 00 as needed. Medical Branch nystatin 2022-0 Yes 1{dose} Apply 1 [facility] vers 100,000 6-16 Dose to ity of unit/gram 00:00: area(s) in [place] cream 00 the Medical morning. Branch hydrocortis 2022-0 Yes 1{appli Apply 1 [facility] one 2.5 % 6-16 cator} Applicator it y of cream 00:00: to area(s) [place] [address] as needed. Medical Branch nystatin 2022-0 Yes 1{dose} Apply 1 [facility] vers 100,000 6-16 Dose to ity of unit/gram 00:00: area(s) in [place] cream 00 the Medical morning. Branch hydrocortis 2022-0 Yes 1{appli Apply 1 [facility] one 2.5 % 6-16 cator} Applicator it y of cream 00:00: to area(s) [place] [address] as needed. Medical Branch nystatin 2022-0 Yes 1{dose} Apply 1 [facility] vers 100,000 6-16 Dose to ity of unit/gram 00:00: area(s) in [place] cream 00 the Medical morning. Branch hydrocortis 2022-0 Yes 1{appli Apply 1 [facility] one 2.5 % 6-16 cator} Applicator it y of cream 00:00: to area(s) [place] 00 as needed. Medical Branch nystatin 2022-0 Yes 1{dose} Apply 1 [facility] vers 100,000 6-16 Dose to ity of unit/gram 00:00: area(s) in [place] cream 00 the Medical morning. Branch hydrocortis 2022-0 Yes 1{appli Apply 1 [facility] one 2.5 % 6-16 cator} Applicator it y of cream 00:00: to area(s) [place] 00 as needed. Medical Branch nystatin 2022-0 Yes 1{dose} Apply 1 [facility] vers 100,000 6-16 Dose to ity of unit/gram 00:00: area(s) in [place] cream 00 the Medical morning. Branch hydrocortis 2022-0 Yes 1{appli Apply 1 [facility] one 2.5 % 6-16 cator} Applicator it y of cream 00:00: to area(s) [place] 00 as needed. Medical Branch nystatin 2022-0 Yes 1{dose} Apply 1 [facility] vers 100,000 6-16 Dose to ity of unit/gram 00:00: area(s) in [place] cream 00 the Medical morning. Branch hydrocortis 2022-0 Yes 1{appli Apply 1 [facility] one 2.5 % 6-16 cator} Applicator it y of cream 00:00: to area(s) [place] 00 as needed. Medical Branch nystatin 2022-0 Yes 1{dose} Apply 1 [facility] vers 100,000 6-16 Dose to ity of unit/gram 00:00: area(s) in [place] cream 00 the Medical morning. Branch hydrocortis 2022-0 Yes 1{appli Apply 1 [facility] one 2.5 % 6-16 cator} Applicator it y of cream 00:00: to area(s) [place] 00 as needed. Medical Branch nystatin 2022-0 Yes 1{dose} Apply 1 [facility] vers 100,000 6-16 Dose to ity of unit/gram 00:00: area(s) in [place] cream 00 the Medical morning. Branch hydrocortis 2022-0 Yes 1{appli Apply 1 [facility] one 2.5 % 6-16 cator} Applicator it y of cream 00:00: to area(s) [place] 00 as needed. Medical Branch nystatin 2022-0 Yes 1{dose} Apply 1 [facility] vers 100,000 6-16 Dose to ity of unit/gram 00:00: area(s) in [place] cream 00 the Medical morning. Branch hydrocortis 2022-0 Yes 1{appli Apply 1 [facility] one 2.5 % 6-16 cator} Applicator it y of cream 00:00: to area(s) [place] 00 as needed. Medical Branch nystatin 2022-0 Yes 1{dose} Apply 1 [facility] vers 100,000 6-16 Dose to ity of unit/gram 00:00: area(s) in [place] cream 00 the Medical morning. Branch hydrocortis 2022-0 Yes 1{appli Apply 1 [facility] one 2.5 % 6-16 cator} Applicator it y of cream 00:00: to area(s) [place] 00 as needed. Medical Branch nystatin 2022-0 Yes 1{dose} Apply 1 [facility] vers 100,000 6-16 Dose to ity of unit/gram 00:00: area(s) in [place] cream 00 the Medical morning. Branch hydrocortis 2022-0 Yes 1{appli Apply 1 [facility] one 2.5 % 6-16 cator} Applicator it y of cream 00:00: to area(s) [place] 00 as needed. Medical Branch nystatin 2022-0 Yes 1{dose} Apply 1 [facility] vers 100,000 6-16 Dose to ity of unit/gram 00:00: area(s) in [place] cream 00 the Medical morning. Branch hydrocortis 2022-0 Yes 1{appli Apply 1 [facility] one 2.5 % 6-16 cator} Applicator it y of cream 00:00: to area(s) [place] 00 as needed. Medical Branch nystatin 2022-0 Yes 1{dose} Apply 1 [facility] vers 100,000 6-16 Dose to ity of unit/gram 00:00: area(s) in [place] cream 00 the Medical morning. Branch hydrocortis 2022-0 Yes 1{appli Apply 1 [facility] one 2.5 % 6-16 cator} Applicator it y of cream 00:00: to area(s) [place] 00 as needed. Medical Branch nystatin 2022-0 Yes 1{dose} Apply 1 [facility] vers 100,000 6-16 Dose to ity of unit/gram 00:00: area(s) in [place] cream 00 the Medical morning. Branch hydrocortis 2022-0 Yes 1{appli Apply 1 [facility] one 2.5 % 6-16 cator} Applicator it y of cream 00:00: to area(s) [place] [address] as needed. Medical Branch nystatin 2022-0 Yes 1{dose} Apply 1 [facility] vers 100,000 6-16 Dose to ity of unit/gram 00:00: area(s) in [place] cream 00 the Medical morning. Branch hydrocortis 2022-0 Yes 1{appli Apply 1 [facility] one 2.5 % 6-16 cator} Applicator it y of cream 00:00: to area(s) [place] 00 as needed. Medical Branch nystatin 2022-0 Yes 1{dose} Apply 1 [facility] vers 100,000 6-16 Dose to ity of unit/gram 00:00: area(s) in [place] cream 00 the Medical morning. Branch hydrocortis 2022-0 Yes 1{appli Apply 1 [facility] one 2.5 % 6-16 cator} Applicator it y of cream 00:00: to area(s) [place] 00 as needed. Medical Branch nystatin 2022-0 Yes 1{dose} Apply 1 [facility] vers 100,000 6-16 Dose to ity of unit/gram 00:00: area(s) in [place] cream 00 the Medical morning. Branch hydrocortis 2022-0 Yes 1{appli Apply 1 [facility] one 2.5 % 6-16 cator} Applicator it y of cream 00:00: to area(s) [place] 00 as needed. Medical Branch nystatin 2022-0 Yes 1{dose} Apply 1 [facility] vers 100,000 6-16 Dose to ity of unit/gram 00:00: area(s) in [place] cream 00 the Medical morning. Branch hydrocortis 2022-0 Yes 1{appli Apply 1 [facility] one 2.5 % 6-16 cator} Applicator it y of cream 00:00: to area(s) [place] 00 as needed. Medical Branch nystatin 2022-0 Yes 1{dose} Apply 1 [facility] vers 100,000 6-16 Dose to ity of unit/gram 00:00: area(s) in [place] cream 00 the Medical morning. Branch hydrocortis 2022-0 Yes 1{appli Apply 1 [facility] one 2.5 % 6-16 cator} Applicator it y of cream 00:00: to area(s) [place] 00 as needed. Medical Branch nystatin 2022-0 Yes 1{dose} Apply 1 [facility] vers 100,000 6-16 Dose to ity of unit/gram 00:00: area(s) in [place] cream 00 the Medical morning. Branch hydrocortis 2022-0 Yes 1{appli Apply 1 [facility] one 2.5 % 6-16 cator} Applicator it y of cream 00:00: to area(s) [place] 00 as needed. Medical Branch nystatin 2022-0 Yes 1{dose} Apply 1 [facility] vers 100,000 6-16 Dose to ity of unit/gram 00:00: area(s) in [place] cream 00 the Medical morning. Branch hydrocortis 2022-0 Yes 1{appli Apply 1 [facility] one 2.5 % 6-16 cator} Applicator it y of cream 00:00: to area(s) [place] 00 as needed. Medical Branch nystatin 2022-0 Yes 1{dose} Apply 1 [facility] vers 100,000 6-16 Dose to ity of unit/gram 00:00: area(s) in [place] cream 00 the Medical morning. Branch hydrocortis 2022-0 Yes 1{appli Apply 1 [facility] one 2.5 % 6-16 cator} Applicator it y of cream 00:00: to area(s) [place] 00 as needed. Medical Branch nystatin 2022-0 Yes 1{dose} Apply 1 [facility] vers 100,000 6-16 Dose to ity of unit/gram 00:00: area(s) in [place] cream 00 the Medical morning. Branch hydrocortis 2022-0 Yes 1{appli Apply 1 [facility] one 2.5 % 6-16 cator} Applicator it y of cream 00:00: to area(s) [place] 00 as needed. Medical Branch nystatin 2022-0 Yes 1{dose} Apply 1 [facility] vers 100,000 6-16 Dose to ity of unit/gram 00:00: area(s) in [place] cream 00 the Medical morning. Branch hydrocortis 2022-0 Yes 1{appli Apply 1 [facility] one 2.5 % 6-16 cator} Applicator it y of cream 00:00: to area(s) [place] 00 as needed. Medical Branch nystatin 2022-0 Yes 1{dose} Apply 1 [facility] vers 100,000 6-16 Dose to ity of unit/gram 00:00: area(s) in [place] cream 00 the Medical morning. Branch hydrocortis 2022-0 Yes 1{appli Apply 1 [facility] one 2.5 % 6-16 cator} Applicator it y of cream 00:00: to area(s) [place] 00 as needed. Medical Branch nystatin 2022-0 Yes 1{dose} Apply 1 [facility] vers 100,000 6-16 Dose to ity of unit/gram 00:00: area(s) in [place] cream 00 the Medical morning. Branch hydrocortis 2022-0 Yes 1{appli Apply 1 [facility] one 2.5 % 6-16 cator} Applicator it y of cream 00:00: to area(s) [place] 00 as needed. Medical Branch nystatin 2022-0 Yes 1{dose} Apply 1 [facility] vers 100,000 6-16 Dose to ity of unit/gram 00:00: area(s) in [place] cream 00 the Medical morning. Branch hydrocortis 2022-0 Yes 1{appli Apply 1 [facility] one 2.5 % 6-16 cator} Applicator it y of cream 00:00: to area(s) [place] 00 as needed. Medical Branch nystatin 2022-0 Yes 1{dose} Apply 1 [facility] vers 100,000 6-16 Dose to ity of unit/gram 00:00: area(s) in [place] cream 00 the Medical morning. Branch hydrocortis 2022-0 Yes 1{appli Apply 1 [facility] one 2.5 % 6-16 cator} Applicator it y of cream 00:00: to area(s) [place] 00 as needed. Medical Branch nystatin 2022-0 Yes 1{dose} Apply 1 [facility] vers 100,000 6-16 Dose to ity of unit/gram 00:00: area(s) in [place] cream 00 the Medical morning. Branch hydrocortis 2022-0 Yes 1{appli Apply 1 [facility] one 2.5 % 6-16 cator} Applicator it y of cream 00:00: to area(s) [place] 00 as needed. Medical Branch nystatin 2022-0 Yes 1{dose} Apply 1 [facility] vers 100,000 6-16 Dose to ity of unit/gram 00:00: area(s) in [place] cream 00 the Medical morning. Branch hydrocortis 2022-0 Yes 1{appli Apply 1 [facility] one 2.5 % 6-16 cator} Applicator it y of cream 00:00: to area(s) [place] [address] as needed. Medical Branch nystatin 2022- Yes 1{dose} Apply 1 [facility] vers 100,000 6-16 Dose to ity of unit/gram 00:00: area(s) in [place] cream 00 the Medical morning. Branch hydrocortis Yes 1{appli Apply 1 [facility] one 2.5 % 6-16 cator} Applicator it y of cream 00:00: to area(s) [place] [address] as needed. Medical Branch nystatin 2022-0 Yes 1{dose} Apply 1 [facility] vers 100,000 6-16 Dose to ity of unit/gram 00:00: area(s) in [place] cream 00 the Medical morning. Branch terbinafine 202- No 1{dose} Apply 1 [facility] HCL 1 % 6-16 08-08 Dose to ity of cream 00:00: 00:00 area(s) in [place] 00 :00 the Medical morning. Branch terbinafine 2022- 2023- No 1{dose} Apply 1 [facility] HCL 1 % 6-16 08-08 Dose to ity of cream 00:00: 00:00 area(s) in [place] 00 :00 the Medical morning. Branch terbinafine 2022-0 2022- No 1{dose} Apply 1 [facility] HCL 1 % 6-16 08-08 Dose to ity of cream 00:00: 00:00 area(s) in [place] 00 :00 the Medical morning. Branch terbinafine 2022-3- No 1{dose} Apply 1 [facility] HCL 1 % 6-16 08-08 Dose to ity of cream 00:00: 00:00 area(s) in [place] 00 :00 the Medical morning. Branch metoprolol 2022-0 Yes [id number] 25mg Take 1 U nivers succinate 6-06 tablet by ity o f XL 25 mg 24 00:00: mouth in [place] hr tablet 00 the Medical morning. Branch metoprolol 3-0 Yes [id number] 25mg Take 1 U nivers succinate 6-06 tablet by ity o f XL 25 mg 24 00:00: mouth in [place] hr tablet 00 the Medical morning. Branch metoprolol 3-0 Yes [id number] 25mg Take 1 U nivers succinate 6-06 tablet by ity o f XL 25 mg 24 00:00: mouth in [place] hr tablet 00 the Medical morning. Branch metoprolol 3-0 Yes [id number] 25mg Take 1 U nivers succinate 6-06 tablet by ity o f XL 25 mg 24 00:00: mouth in [place] hr tablet 00 the Medical morning. Branch metoprolol 3-0 Yes [id number] 25mg Take 1 U nivers succinate 6-06 tablet by ity o f XL 25 mg 24 00:00: mouth in [place] hr tablet 00 the Medical morning. Branch metoprolol 3-0 Yes [id number] 25mg Take 1 U nivers succinate 6-06 tablet by ity o f XL 25 mg 24 00:00: mouth in [place] hr tablet 00 the Medical morning. Branch metoprolol 3-0 Yes [id number] 25mg Take 1 U nivers succinate 6-06 tablet by ity o f XL 25 mg 24 00:00: mouth in [place] hr tablet 00 the Medical morning. Branch metoprolol 3-0 Yes [id number] 25mg Take 1 U nivers succinate 6-06 tablet by ity o f XL 25 mg 24 00:00: mouth in [place] hr tablet 00 the Medical morning. Branch metoprolol 3-0 Yes [id number] 25mg Take 1 U nivers succinate 6-06 tablet by ity o f XL 25 mg 24 00:00: mouth in [place] hr tablet 00 the Medical morning. Branch metoprolol 3-0 Yes [id number] 25mg Take 1 U nivers succinate 6-06 tablet by ity o f XL 25 mg 24 00:00: mouth in [place] hr tablet 00 the Medical morning. Branch metoprolol 3-0 Yes [id number] 25mg Take 1 U nivers succinate 6-06 tablet by ity o f XL 25 mg 24 00:00: mouth in [place] hr tablet 00 the Medical morning. Branch metoprolol 3-0 Yes [id number] 25mg Take 1 U nivers succinate 6-06 tablet by ity o f XL 25 mg 24 00:00: mouth in [place] hr tablet 00 the Medical morning. Branch metoprolol 3-0 Yes [id number] 25mg Take 1 U nivers succinate 6-06 tablet by ity o f XL 25 mg 24 00:00: mouth in [place] hr tablet 00 the Medical morning. Branch metoprolol 3-0 Yes [id number] 25mg Take 1 U nivers succinate 6-06 tablet by ity o f XL 25 mg 24 00:00: mouth in [place] hr tablet 00 the Medical morning. Branch metoprolol 3-0 Yes [id number] 25mg Take 1 U nivers succinate 6-06 tablet by ity o f XL 25 mg 24 00:00: mouth in [place] hr tablet 00 the Medical morning. Branch metoprolol 3-0 Yes [id number] 25mg Take 1 U nivers succinate 6-06 tablet by ity o f XL 25 mg 24 00:00: mouth in [place] hr tablet 00 the Medical morning. Branch metoprolol 3-0 Yes [id number] 25mg Take 1 U nivers succinate 6-06 tablet by ity o f XL 25 mg 24 00:00: mouth in [place] hr tablet 00 the Medical morning. Branch metoprolol 3-0 Yes [id number] 25mg Take 1 U nivers succinate 6-06 tablet by ity o f XL 25 mg 24 00:00: mouth in [place] hr tablet 00 the Medical morning. Branch metoprolol 3-0 Yes [id number] 25mg Take 1 U nivers succinate 6-06 tablet by ity o f XL 25 mg 24 00:00: mouth in [place] hr tablet 00 the Medical morning. Branch metoprolol 3-0 Yes [id number] 25mg Take 1 U nivers succinate 6-06 tablet by ity o f XL 25 mg 24 00:00: mouth in [place] hr tablet 00 the Medical morning. Branch metoprolol 3-0 Yes [id number] 25mg Take 1 U nivers succinate 6-06 tablet by ity o f XL 25 mg 24 00:00: mouth in [place] hr tablet 00 the Medical morning. Branch metoprolol 3-0 Yes [id number] 25mg Take 1 U nivers succinate 6-06 tablet by ity o f XL 25 mg 24 00:00: mouth in [place] hr tablet 00 the Medical morning. Branch metoprolol 3-0 Yes [id number] 25mg Take 1 U nivers succinate 6-06 tablet by ity o f XL 25 mg 24 00:00: mouth in [place] hr tablet 00 the Medical morning. Branch metoprolol 2022-0 Yes [id number] 25mg Take 1 U nivers succinate 6-06 tablet by ity o f XL 25 mg 24 00:00: mouth in [place] hr tablet 00 the Medical morning. Branch metoprolol 2022-0 2022- No [id number] 25mg Take 1 [facility] succinate 12-22- tablet by ity of XL 25 mg 24 00:00: 00:00 mouth in [place] hr tablet 00 :00 the Medical morning. Branch metoprolol 2022-0 2022- No [id number] 25mg Take 1 [facility] succinate 12-22- tablet by ity of XL 25 mg 24 00:00: 00:00 mouth in [place] hr tablet 00 :00 the Medical morning. Branch metoprolol 0 2022- No [id number] 25mg Take 1 [facility] succinate 12-22- tablet [...] Medical CpPk morning. Branch SUMAtriptan 2022-0 Yes [id number] 100mg Take 1 [facility] 100 mg 6-05 [...] days in a week. SUMAtriptan 2023-0 Yes [id number] 100mg Take 1 [facility] 100 mg 6-05 [...] days in a week. SUMAtriptan 2023-0 Yes [id number] 100mg Take 1 [facility] 100 mg 6-05 [...] days in a week. SUMAtriptan 2023-0 Yes [id number] 100mg Take 1 [facility] 100 mg 6-05 [...] days in a week. SUMAtriptan 2023-0 Yes [id number] 100mg Take 1 [facility] 100 mg 6-05 [...] days in a week. SUMAtriptan 2023-0 Yes [id number] 100mg Take 1 [facility] 100 mg 6-05 [...] days in a week. SUMAtriptan 2023-0 Yes [id number] 100mg Take 1 [facility] 100 mg 6-05 [...] days in a week. SUMAtriptan 2023-0 Yes [id number] 100mg Take 1 [facility] 100 mg 6-05 [...] days in a week. SUMAtriptan 2023-0 Yes [id number] 100mg Take 1 [facility] 100 mg 6-05 [...] days in a week. SUMAtriptan 2023-0 Yes [id number] 100mg Take 1 [facility] 100 mg 6-05 [...] days in a week. SUMAtriptan 2023-0 Yes [id number] 100mg Take 1 [facility] 100 mg 6-05 [...] days in a week. SUMAtriptan 2023-0 Yes [id number] 100mg Take 1 [facility] 100 mg 6-05 [...] days in a week. SUMAtriptan 2023-0 Yes [id number] 100mg Take 1 [facility] 100 mg 6-05 [...] days in a week. SUMAtriptan 2023-0 Yes [id number] 100mg Take 1 [facility] 100 mg 6-05 [...] days in a week. SUMAtriptan 2023-0 Yes [id number] 100mg Take 1 [facility] 100 mg 6-05 [...] days in a week. SUMAtriptan 2023-0 Yes [id number] 100mg Take 1 [facility] 100 mg 6-05 [...] days in a week. SUMAtriptan 2023-0 Yes [id number] 100mg Take 1 [facility] 100 mg 6-05 [...] days in a week. SUMAtriptan 2023-0 Yes [id number] 100mg Take 1 [facility] 100 mg 6-05 [...] days in a week. SUMAtriptan 2023-0 Yes [id number] 100mg Take 1 [facility] 100 mg 6-05 [...] days in a week. SUMAtriptan 2023-0 Yes [id number] 100mg Take 1 [facility] 100 mg 6-05 [...] days in a week. SUMAtriptan 2023-0 Yes [id number] 100mg Take 1 [facility] 100 mg 6-05 [...] days in a week. SUMAtriptan 2023-0 Yes [id number] 100mg Take 1 [facility] 100 mg 6-05 [...] days in a week. SUMAtriptan 2023-0 Yes [id number] 100mg Take 1 [facility] 100 mg 6-05 [...] days in a week. SUMAtriptan 2023-0 Yes [id number] 100mg Take 1 [facility] 100 mg 6-05 [...] days in a week. SUMAtriptan 2023-0 Yes [id number] 100mg Take 1 [facility] 100 mg 6-05 [...] days in a week. SUMAtriptan 2023-0 Yes [id number] 100mg Take 1 [facility] 100 mg 6-05 [...] days in a week. SUMAtriptan 2023-0 Yes [id number] 100mg Take 1 [facility] 100 mg 6-05 [...] days in a week. SUMAtriptan 2023-0 Yes [id number] 100mg Take 1 [facility] 100 mg 6-05 [...] days in a week. SUMAtriptan 2023-0 Yes [id number] 100mg Take 1 [facility] 100 mg 6-05 [...] days in a week. SUMAtriptan 2023-0 Yes [id number] 100mg Take 1 [facility] 100 mg 6-05 [...] days in a week. SUMAtriptan 2023-0 Yes [id number] 100mg Take 1 [facility] 100 mg 6-05 [...] days in a week. SUMAtriptan 2023-0 Yes [id number] 100mg Take 1 [facility] 100 mg 6-05 [...] days in a week. SUMAtriptan 2023-0 Yes [id number] 100mg Take 1 [facility] 100 mg 6-05 [...] days in a week. SUMAtriptan 2023-0 Yes [id number] 100mg Take 1 [facility] 100 mg 6-05 [...] days in a week. SUMAtriptan 2023-0 Yes [id number] 100mg Take 1 [facility] 100 mg 6-05 [...] days in a week. SUMAtriptan 2023-0 Yes [id number] 100mg Take 1 [facility] 100 mg 6-05 [...] days in a week. SUMAtriptan 2023-0 Yes [id number] 100mg Take 1 [facility] 100 mg 6-05 [...] days in a week. SUMAtriptan 2023-0 Yes [id number] 100mg Take 1 [facility] 100 mg 6-05 [...] days in a week. SUMAtriptan 2023-0 Yes [id number] 100mg Take 1 [facility] 100 mg 6-05 [...] days in a week. SUMAtriptan 2023-0 Yes [id number] 100mg Take 1 [facility] 100 mg 6-05 [...] days in a week. SUMAtriptan 2023-0 Yes [id number] 100mg Take 1 [facility] 100 mg 6-05 [...] days in a week. SUMAtriptan 2023-0 Yes [id number] 100mg Take 1 [facility] 100 mg 6-05 [...] days in a week. SUMAtriptan 2023-0 Yes [id number] 100mg Take 1 [facility] 100 mg 6-05 [...] days in a week. SUMAtriptan 2023-0 Yes [id number] 100mg Take 1 [facility] 100 mg 6-05 [...] days in a week. SUMAtriptan 2023-0 Yes [id number] 100mg Take 1 [facility] 100 mg 6-05 [...] days in a week. SUMAtriptan 2023-0 Yes [id number] 100mg Take 1 [facility] 100 mg 6-05 [...] days in a week. SUMAtriptan 2023-0 Yes [id number] 100mg Take 1 [facility] 100 mg 6-05 [...] days in a week. SUMAtriptan 2023-0 Yes [id number] 100mg Take 1 [facility] 100 mg 6-05 [...] days in a week. SUMAtriptan 2023-0 Yes [id number] 100mg Take 1 [facility] 100 mg 6-05 [...] days in a week. SUMAtriptan 2023-0 Yes [id number] 100mg Take 1 [facility] 100 mg 6-05 [...] days in a week. SUMAtriptan 2023-0 Yes [id number] 100mg Take 1 [facility] 100 mg 6-05 [...] days in a week. SUMAtriptan 2023-0 Yes [id number] 100mg Take 1 [facility] 100 mg 6-05 [...] days in a week. SUMAtriptan 2023-0 Yes [id number] 100mg Take 1 [facility] 100 mg 6-05 [...] days in a week. SUMAtriptan 2023-0 Yes [id number] 100mg Take 1 [facility] 100 mg 6-05 [...] days in a week. SUMAtriptan 2023-0 Yes [id number] 100mg Take 1 [facility] 100 mg 6-05 [...] days in a week. SUMAtriptan 2023-0 Yes [id number] 100mg Take 1 [facility] 100 mg 6-05 [...] days in a week. SUMAtriptan 2023-0 Yes [id number] 100mg Take 1 [facility] 100 mg 6-05 [...] days in a week. SUMAtriptan 2023-0 Yes [id number] 100mg Take 1 [facility] 100 mg 6-05 [...] days in a week. SUMAtriptan 2023-0 Yes [id number] 100mg Take 1 [facility] 100 mg 6-05 [...] days in a week. SUMAtriptan 2023-0 Yes [id number] 100mg Take 1 [facility] 100 mg 6-05 [...] days in a week. SUMAtriptan 2023-0 Yes [id number] 100mg Take 1 [facility] 100 mg 6-05 [...] days in a week. SUMAtriptan 2023-0 Yes [id number] 100mg Take 1 [facility] 100 mg 6-05 [...] days in a week. SUMAtriptan 2023-0 Yes [id number] 100mg Take 1 [facility] 100 mg 6-05 [...] days in a week. SUMAtriptan 2023-0 Yes [id number] 100mg Take 1 [facility] 100 mg 6-05 [...] days in a week. SUMAtriptan 2023-0 Yes [id number] 100mg Take 1 [facility] 100 mg 6-05 [...] days in a week. SUMAtriptan 2023-0 Yes [id number] 100mg Take 1 [facility] 100 mg 6-05 [...] days in a week. SUMAtriptan 2023-0 Yes [id number] 100mg Take 1 [facility] 100 mg 6-05 [...] days in a week. SUMAtriptan 2023-0 Yes [id number] 100mg Take 1 [facility] 100 mg 6-05 [...] days in a week. SUMAtriptan 2023-0 Yes [id number] 100mg Take 1 [facility] 100 mg 6-05 [...] days in a week. SUMAtriptan 2023-0 Yes [id number] 100mg Take 1 [facility] 100 mg 6-05 [...] days in a week. SUMAtriptan 2023-0 Yes [id number] 100mg Take 1 [facility] 100 mg 6-05 [...] days in a week. SUMAtriptan 2023-0 Yes [id number] 100mg Take 1 [facility] 100 mg 6-05 [...] days in a week. SUMAtriptan 2023-0 Yes [id number] 100mg Take 1 [facility] 100 mg 6-05 [...] days in a week. SUMAtriptan 2023-0 Yes [id number] 100mg Take 1 [facility] 100 mg 6-05 [...] days in a week. SUMAtriptan 2023-0 Yes [id number] 100mg Take 1 [facility] 100 mg 6-05 [...] days in a week. SUMAtriptan 2023-0 Yes [id number] 100mg Take 1 [facility] 100 mg 6-05 [...] days in a week. SUMAtriptan 2023-0 Yes [id number] 100mg Take 1 [facility] 100 mg 6-05 [...] days in a week. SUMAtriptan 2023-0 Yes [id number] 100mg Take 1 [facility] 100 mg 6-05 [...] days in a week. benzonatate 2023-0 Yes [id number] 100mg Take 1 [facility] 100 mg 5-22 capsule by [facility] of capsule 00:00: mouth 3 [place] 00 (three) Medical times Branch daily as needed for Cough. benzonatate 2023-0 Yes [id number] 100mg Take 1 [facility] 100 mg 5-22 capsule by it[facility] of capsule 00:00: mouth 3 [place] 00 (three) Medical times Branch daily as needed for Cough. benzonatate 2023-0 Yes [id number] 100mg Take 1 [facility] 100 mg 5-22 capsule by ity of capsule 00:00: mouth 3 [place] 00 (three) Medical times Branch daily as needed for Cough. benzonatate 2023-0 Yes [id number] 100mg Take 1 [facility] 100 mg 5-22 capsule by ity of capsule 00:00: mouth 3 [place] 00 (three) Medical times Branch daily as needed for Cough. benzonatate 2023-0 Yes [id number] 100mg Take 1 [facility] 100 mg 5-22 [...] Branch triamcinolo 3-0 Yes 1{appli Apply 1 [facility] ne 12-07 cator} Applicator ity of acetonide 00:00: to area(s) [place] 0.1 % cream 00 as needed. Me dical Branch azithromyci 3-0 Yes 260mg Take 6.5 [facility] n 200 mg/5 5-22 mL by ity of mL 00:00: mouth in [place] suspension 00 the Medical morning. Branch triamcinolo 3-0 Yes 1{appli Apply 1 [facility] ne 12-07 cator} Applicator ity of acetonide 00:00: to area(s[place] 0.1 % cream 00 as needed. Me dical Branch azithromyci 3-0 Yes 260mg Take 6.5 [facility] n[facility] n 200 mg/5 5-22 mL by ity of mL 00:00: mouth in [place] suspension 00 the Medical morning. Branch triamcinolo 3-0 Yes 1{appli Apply 1 [facility] ne 12-07 cator} Applicator ity of acetonide 00:00: to area(s) [place] 0.1 % cream 00 as needed. Me dical Branch azithromyci 3-0 Yes 260mg Take 6.5 U nivers n 200 mg/5 5-22 mL by ity of mL 00:00: mouth in [place] suspension 00 the Medical morning. Branch triamcinolo 3-0 Yes 1{appli Apply 1 [facility] ne 5 cator} Applicator ity [...] cream 00 as needed. Me dical Branch triamcinolo 2022-0 Yes 1{appli Apply 1 [facility] ne 5-22 cator} Applicator ity of acetonide 00:00: to area(s) [place] 0.1 % cream 00 as needed. Me dical Branch azithromyci 2022-0 2023- No 260mg Take 6.5 [facility] n 200 mg/5 5-22 11-13 mL by ity of mL 00:00: 00:00 mouth in [place] suspension 00 :00 the Medical morning. Branch benzonatate 3-0 2023- No [id number] 100mg Take 1 [facility] 100 mg 5-22 06-05 capsule by ity of capsule 00:00: 00:00 mouth 3 [place] 00 :00 (three) Medical times Branch daily as needed for Cough. benzonatate 3-0 3- No [id number] 100mg Take 1 [facility] 100 mg 5-22 06-05 capsule by ity of capsule 00:00: 00:00 mouth 3 [place] 00 :00 (three) Medical times Branch daily as needed for Cough. benzonatate 3-0 3- No [id number] 100mg Take 1 [facility] 100 mg 5-22 06-05 capsule by ity of capsule 00:00: 00:00 mouth 3 [place] 00 :00 (three) Medical times Branch daily [...] y of mg Cap 11:09: mouth in [address] and 1 capsule in the evening. cariprazine 3-0 Yes 1{capsu Take 1 U nivers (VRAYLAR) 3 5-04 le} capsule by it y of mg Cap 11:09: mouth in [address] and 1 capsule in the evening. cariprazine 3-0 Yes 1{capsu Take 1 U nivers (VRAYLAR) 3 5-04 le} capsule by it y of mg Cap 11:09: mouth in [address] and 1 capsule in the evening. cariprazine 2023-0 Yes 1{capsu Take 1 U nivers (VRAYLAR) 3 5-04 le} capsule by it y of mg Cap 11:09: mouth in [address] and 1 capsule in the evening. cariprazine 3-0 Yes 1{capsu Take 1 U nivers (VRAYLAR) 3 5-04 le} capsule by it y of mg Cap 11:09: mouth in [address] and 1 capsule in the evening. cariprazine 2023-0 Yes 1{capsu Take 1 U nivers (VRAYLAR) 3 5-04 le} capsule by it y of mg Cap 11:09: mouth in [address] and 1 capsule in the evening. cariprazine 2023-0 Yes 1{capsu Take 1 U nivers (VRAYLAR) 3 5-04 le} capsule by it y of mg Cap 11:09: mouth in [address] and 1 capsule in the evening. cariprazine 2023-0 Yes 1{capsu Take 1 U nivers (VRAYLAR) 3 5-04 le} capsule by it y of mg Cap 11:09: mouth in [address] and 1 capsule in the evening. cariprazine 2023-0 Yes 1{capsu Take 1 U nivers (VRAYLAR) 3 5-04 le} capsule by it y of mg Cap 11:09: mouth in [address] and 1 capsule in the evening. cariprazine 2023-0 Yes 1{capsu Take 1 U nivers (VRAYLAR) 3 5-04 le} capsule by it y of mg Cap 11:09: mouth in [address] and 1 capsule in the evening. cariprazine 2023-0 Yes 1{capsu Take 1 U nivers (VRAYLAR) 3 5-04 le} capsule by it y of mg Cap 11:09: mouth in [address] and 1 capsule in the evening. cariprazine 2023-0 Yes 1{capsu Take 1 U nivers (VRAYLAR) 3 5-04 le} capsule by it y of mg Cap 11:09: mouth in [address] and 1 capsule in the evening. cariprazine 2023-0 Yes 1{capsu Take 1 U nivers (VRAYLAR) 3 5-04 le} capsule by it y of mg Cap 11:09: mouth in [address] and 1 capsule in the evening. cariprazine 2023-0 Yes 1{capsu Take 1 U nivers (VRAYLAR) 3 5-04 le} capsule by it y of mg Cap 11:09: mouth in [address] and 1 capsule in the evening. cariprazine 2023-0 Yes 1{capsu Take 1 U nivers (VRAYLAR) 3 5-04 le} capsule by it y of mg Cap 11:09: mouth in [address] and 1 capsule in the evening. cariprazine 2023-0 Yes 1{capsu Take 1 U nivers (VRAYLAR) 3 5-04 le} capsule by it y of mg Cap 11:09: mouth in [address] and 1 capsule in the evening. cariprazine 2023-0 Yes 1{capsu Take 1 U nivers (VRAYLAR) 3 5-04 le} capsule by it y of mg Cap 11:09: mouth in [address] and 1 capsule in the evening. cariprazine 2023-0 Yes 1{capsu Take 1 U nivers (VRAYLAR) 3 5-04 le} capsule by it y of mg Cap 11:09: mouth in [address] and 1 capsule in the evening. cariprazine 2023-0 Yes 1{capsu Take 1 U nivers (VRAYLAR) 3 5-04 le} capsule by it y of mg Cap 11:09: mouth in [address] and 1 capsule in the evening. cariprazine 2023-0 Yes 1{capsu Take 1 U nivers (VRAYLAR) 3 5-04 le} capsule by it y of mg Cap 11:09: mouth in [address] and 1 capsule in the evening. cariprazine 2023-0 Yes 1{capsu Take 1 U nivers (VRAYLAR) 3 5-04 le} capsule by it y of mg Cap 11:09: mouth in [address] and 1 capsule in the evening. cariprazine 2023-0 Yes 1{capsu Take 1 U nivers (VRAYLAR) 3 5-04 le} capsule by it y of mg Cap 11:09: mouth in [address] and 1 capsule in the evening. cariprazine 2023-0 Yes 1{capsu Take 1 U nivers (VRAYLAR) 3 5-04 le} capsule by it y of mg Cap 11:09: mouth in [address] and 1 capsule in the evening. cariprazine 2023-0 Yes 1{capsu Take 1 U nivers (VRAYLAR) 3 5-04 le} capsule by it y of mg Cap 11:09: mouth in [address] and 1 capsule in the evening. cariprazine 2023-0 Yes 1{capsu Take 1 U nivers (VRAYLAR) 3 5-04 le} capsule by it y of mg Cap 11:09: mouth in [address] and 1 capsule in the evening. cariprazine 2023-0 Yes 1{capsu Take 1 U nivers (VRAYLAR) 3 5-04 le} capsule by it y of mg Cap 11:09: mouth in [address] and 1 capsule in the evening. cariprazine 2023-0 Yes 1{capsu Take 1 U nivers (VRAYLAR) 3 5-04 le} capsule by it y of mg Cap 11:09: mouth in [address] and 1 capsule in the evening. cariprazine 2023-0 Yes 1{capsu Take 1 U nivers (VRAYLAR) 3 5-04 le} capsule by it y of mg Cap 11:09: mouth in [address] and 1 capsule in the evening. cariprazine 2023-0 Yes 1{capsu Take 1 U nivers (VRAYLAR) 3 5-04 le} capsule by it y of mg Cap 11:09: mouth in [address] and 1 capsule in the evening. cariprazine 2023-0 Yes 1{capsu Take 1 U nivers (VRAYLAR) 3 5-04 le} capsule by it y of mg Cap 11:09: mouth in [address] and 1 capsule in the evening. cariprazine 2023-0 Yes 1{capsu Take 1 U nivers (VRAYLAR) 3 5-04 le} capsule by it y of mg Cap 11:09: mouth in [address] and 1 capsule in the evening. cariprazine 2023-0 Yes 1{capsu Take 1 U nivers (VRAYLAR) 3 5-04 le} capsule by it y of mg Cap 11:09: mouth in [address] and 1 capsule in the evening. cariprazine 2023-0 Yes 1{capsu Take 1 U nivers (VRAYLAR) 3 5-04 le} capsule by it y of mg Cap 11:09: mouth in [address] and 1 capsule in the evening. cariprazine 2023-0 Yes 1{capsu Take 1 U nivers (VRAYLAR) 3 5-04 le} capsule by it y of mg Cap 11:09: mouth in [address] and 1 capsule in the evening. cariprazine 2023-0 Yes 1{capsu Take 1 U nivers (VRAYLAR) 3 5-04 le} capsule by it y of mg Cap 11:09: mouth in [address] and 1 capsule in the evening. cariprazine 2023-0 Yes 1{capsu Take 1 U nivers (VRAYLAR) 3 5-04 le} capsule by it y of mg Cap 11:09: mouth in [address] and 1 capsule in the evening. cariprazine 2023-0 Yes 1{capsu Take 1 U nivers (VRAYLAR) 3 5-04 le} capsule by it y of mg Cap 11:09: mouth in [address] and 1 capsule in the evening. dexamethaso 2023-0 Yes [id number] 12mg Take 120 [facility] ne 0.1 5-01 mL by ity of mg/mL LOW 00:00: mouth in [facility] 00 the Medical ON solution morning. Bran ch ipratropium 2023-0 Yes [id number] .5mg Inhale 2.5 [facility] 0.02 % 5-01 mL every 6 ity of nebulizer 00:00: (six) [place] [facility] 00 hours as Medical needed for Branch Wheezing or Shortness of Breath. dexamethaso 2023-0 Yes [id number] 12mg Take 120 [facility] ne 0.1 5-01 mL by ity of mg/mL LOW 00:[facility]. Bran ch ipratropium 2023-0 Yes [id number] .5mg Inhale 2.5 [facility] 0.02 % 5-01 mL every 6 ity of nebulizer 00:00: (six) [place] solution 00 hours as Medical needed for Branch Wheezing or Shortness of Breath. dexamethaso 2023-0 Yes [id number] 12mg Take 120 [facility] ne 0.1 5-01 mL by ity of mg/mL LOW 00:00: [place] [facility] 00 the Medical ON solution morning. Bran ch ipratropium 2023-0 Yes [id number] .5mg Inhale 2.5 [facility] 0.02 % 5-01 mL every 6 ity of nebulizer 00:00: (six) [place] solution 00 hours as Medical needed for Branch Wheezing or Shortness of Breath. dexamethaso 2023-0 Yes [id number] 12mg Take 120 [facility] ne 0.1 5-01 mL by ity of mg/mL LOW 00:00: mouth in [place] [facility] 00 the Medical ON solution morning. Bran ch ipratropium 2023-0 Yes [id number] .5mg Inhale 2.5 [facility] 0.02 % 5-01 mL every 6 ity of nebulizer 00:00: (six) [place] solution 00 hours as Medical needed for Branch Wheezing or Shortness of Breath. dexamethaso 2023-0 Yes [id number] 12mg Take 120 [facility] ne 0.1 5-01 mL by ity of mg/mL LOW 00:00: mouth in [place] [facility] 00 the Medical ON solution morning. Bran ch ipratropium 2023-0 Yes [id number] .5mg Inhale 2.5 [facility] 0.02 % 5-01 mL every 6 ity of nebulizer 00:00: (six) [place] solution 00 hours as Medical needed for Branch Wheezing or Shortness of Breath. dexamethaso 2023-0 Yes [id number] 12mg Take 120 [facility] ne 0.1 5-01 mL by ity of mg/mL LOW 00:00: mouth in [place] [facility] 00 the Medical ON solution morning. Bran ch ipratropium 2023-0 Yes [id number] .5mg Inhale 2.5 [facility] 0.02 % 5-01 mL every 6 ity of nebulizer 00:00: (six) [place] solution 00 hours as Medical needed for Branch Wheezing or Shortness of Breath. dexamethaso 2023-0 Yes [id number] 12mg Take 120 [facility] ne 0.1 5-01 mL by ity of mg/mL LOW 00:00: mouth in [place] [facility] 00 the Medical ON solution morning. Bran ch ipratropium 2023-0 Yes [id number] .5mg Inhale 2.5 [facility] 0.02 % 5-01 mL every 6 ity of nebulizer 00:00: (six) [place] solution 00 hours as Medical needed for Branch Wheezing or Shortness of Breath. dexamethaso 2023-0 Yes [id number] 12mg Take 120 [facility] ne 0.1 5-01 mL by ity of mg/mL LOW 00:00: mouth in [place] [facility] 00 the Medical ON solution morning. Bran ch ipratropium 2023-0 Yes [id number] .5mg Inhale 2.5 [facility] 0.02 % 5-01 mL every 6 ity of nebulizer 00:00: (six) [place] solution 00 hours as Medical needed for Branch Wheezing or Shortness of Breath. dexamethaso 2023-0 Yes [id number] 12mg Take 120 [facility] ne 0.1 5-01 mL by ity of mg/mL LOW 00:00: mouth in [place] [facility] 00 the Medical ON solution morning. Bran ch ipratropium 2023-0 Yes [id number] .5mg Inhale 2.5 [facility] 0.02 % 5-01 mL every 6 ity of nebulizer 00:00: (six) [place] solution 00 hours as Medical needed for Branch Wheezing or Shortness of Breath. dexamethaso 2023-0 Yes [id number] 12mg Take 120 [facility] ne 0.1 5-01 mL by ity of mg/mL LOW 00:00: mouth in [place] [facility] 00 the Medical ON solution morning. Bran ch ipratropium 2023-0 Yes [id number] .5mg Inhale 2.5 [facility] 0.02 % 5-01 mL every 6 ity of nebulizer 00:00: (six) [place] solution 00 hours as Medical needed for Branch Wheezing or Shortness of Breath. dexamethaso 2023-0 Yes [id number] 12mg Take 120 [facility] ne 0.1 5-01 mL by ity of mg/mL LOW 00:00: mouth in [place] [facility] 00 the Medical ON solution morning. Bran ch ipratropium 2023-0 Yes [id number] .5mg Inhale 2.5 [facility] 0.02 % 5-01 mL every 6 ity of nebulizer 00:00: (six) [place] solution 00 hours as Medical needed for Branch Wheezing or Shortness of Breath. dexamethaso 2023-0 Yes [id number] 12mg Take 120 [facility] ne 0.1 5-01 mL by ity of mg/mL LOW 00:00: mouth in [place] [facility] 00 the Medical ON solution morning. Bran ch ipratropium 2023-0 Yes [id number] .5mg Inhale 2.5 [facility] 0.02 % 5-01 mL every 6 ity of nebulizer 00:00: (six) [place] solution 00 hours as Medical needed for Branch Wheezing or Shortness of Breath. dexamethaso 2023-0 Yes [id number] 12mg Take 120 [facility] ne 0.1 5-01 mL by ity of mg/mL LOW 00:00: mouth in [place] [facility] 00 the Medical ON solution morning. Bran ch ipratropium 2023-0 Yes [id number] .5mg Inhale 2.5 [facility] 0.02 % 5-01 mL every 6 ity of nebulizer 00:00: (six) [place] solution 00 hours as Medical needed for Branch Wheezing or Shortness of Breath. dexamethaso 2023-0 Yes [id number] 12mg Take 120 [facility] ne 0.1 5-01 mL by ity of mg/mL LOW 00:00: mouth in [place] [facility] 00 the Medical ON solution morning. Bran ch ipratropium 2023-0 Yes [id number] .5mg Inhale 2.5 [facility] 0.02 % 5-01 mL every 6 ity of nebulizer 00:00: (six) [place] solution 00 hours as Medical needed for Branch Wheezing or Shortness of Breath. dexamethaso 2023-0 Yes [id number] 12mg Take 120 [facility] ne 0.1 5-01 mL by ity of mg/mL LOW 00:00: mouth [place] [facility] 00 the Medical ON solution morning. Bran ch ipratropium 2023-0 Yes [id number] .5mg Inhale 2.5 [facility] 0.02 % 5-01 mL every 6 ity of nebulizer 00:00: (six) [place] solution 00 hours as Medical needed for Branch Wheezing or Shortness of Breath. dexamethaso 2023-0 Yes [id number] 12mg Take 120 [facility] ne 0.1 5-01 mL by ity of mg/mL LOW 00:00: mouth [place] [facility] 00 the Medical ON solution morning. Bran ch ipratropium 2023-0 Yes [id number] .5mg Inhale 2.5 [facility] 0.02 % 5-01 mL every 6 ity of nebulizer 00:00: (six) [place] solution 00 hours as Medical needed for Branch Wheezing or Shortness of Breath. dexamethaso 2023-0 Yes [id number] 12mg Take 120 [facility] ne 0.1 5-01 mL by ity of mg/mL LOW 00:00: mouth in [place] [facility] 00 the Medical ON solution morning. Bran ch ipratropium 2023-0 Yes [id number] .5mg Inhale 2.5 [facility] 0.02 % 5-01 mL every 6 ity of nebulizer 00:00: (six) [place] solution 00 hours as Medical needed for Branch Wheezing or Shortness of Breath. dexamethaso 2023-0 Yes [id number] 12mg Take 120 [facility] ne 0.1 5-01 mL by ity of mg/mL LOW 00:00: mouth in [place] [facility] 00 the Medical ON solution morning. Bran ch ipratropium 2023-0 Yes [id number] .5mg Inhale 2.5 [facility] 0.02 % 5-01 mL every 6 ity of nebulizer 00:00: (six) [place] solution 00 hours as Medical needed for Branch Wheezing or Shortness of Breath. dexamethaso 2023-0 Yes [id number] 12mg Take 120 [facility] ne 0.1 5-01 mL by ity of mg/mL LOW 00:00: mouth in [place] [facility] 00 the Medical ON solution morning. Bran ch ipratropium 2023-0 Yes [id number] .5mg Inhale 2.5 [facility] 0.02 % 5-01 mL every 6 ity of nebulizer 00:00: (six) [place] solution 00 hours as Medical needed for Branch Wheezing or Shortness of Breath. dexamethaso 2023-0 Yes [id number] 12mg Take 120 [facility] ne 0.1 5-01 mL by ity of mg/mL LOW 00:00: mouth in [place] [facility] 00 the Medical ON solution morning. Bran ch ipratropium 2023-0 Yes [id number] .5mg Inhale 2.5 [facility] 0.02 % 5-01 mL every 6 ity of nebulizer 00:00: (six) [place] solution 00 hours as Medical needed for Branch Wheezing or Shortness of Breath. dexamethaso 2023-0 Yes [id number] 12mg Take 120 [facility] ne 0.1 5-01 mL by ity of mg/mL LOW 00:00: mouth in [place] [facility] 00 the Medical ON solution morning. Bran ch ipratropium 2023-0 Yes [id number] .5mg Inhale 2.5 [facility] 0.02 % 5-01 mL every 6 ity of nebulizer 00:00: (six) [place] solution 00 hours as Medical needed for Branch Wheezing or Shortness of Breath. dexamethaso 2023-0 Yes [id number] 12mg Take 120 [facility] ne 0.1 5-01 mL by ity of mg/mL LOW 00:00: mouth in [place] [facility] 00 the Medical ON solution morning. Bran ch ipratropium 2023-0 Yes [id number] .5mg Inhale 2.5 [facility] 0.02 % 5-01 mL every 6 ity of nebulizer 00:00: (six) [place] solution 00 hours as Medical needed for Branch Wheezing or Shortness of Breath. dexamethaso 2023-0 Yes [id number] 12mg Take 120 [facility] ne 0.1 5-01 mL by ity of mg/mL LOW 00:00: mouth in [place] [facility] 00 the Medical ON solution morning. Bran ch ipratropium 2023-0 Yes [id number] .5mg Inhale 2.5 [facility] 0.02 % 5-01 mL every 6 ity of nebulizer 00:00: (six) [place] solution 00 hours as Medical needed for Branch Wheezing or Shortness of Breath. dexamethaso 2023-0 Yes [id number] 12mg Take 120 [facility] ne 0.1 5-01 mL by ity of mg/mL LOW 00:00: mouth in [place] [facility] 00 the Medical ON solution morning. Bran ch ipratropium 2023-0 Yes [id number] .5mg Inhale 2.5 [facility] 0.02 % 5-01 mL every 6 ity of nebulizer 00:00: (six) [place] solution 00 hours as Medical needed for Branch Wheezing or Shortness of Breath. dexamethaso 2023-0 Yes [id number] 12mg Take 120 [facility] ne 0.1 5-01 mL by ity of mg/mL LOW 00:00: mouth in [place] [facility] 00 the Medical ON solution morning. Bran ch ipratropium 2023-0 Yes [id number] .5mg Inhale 2.5 [facility] 0.02 % 5-01 mL every 6 ity of nebulizer 00:00: (six) [place] solution 00 hours as Medical needed for Branch Wheezing or Shortness of Breath. dexamethaso 2023-0 Yes [id number] 12mg Take 120 [facility] ne 0.1 5-01 mL by ity of mg/mL LOW 00:00: mouth in [place] [facility] 00 the Medical ON solution morning. Bran ch ipratropium 2023-0 Yes [id number] .5mg Inhale 2.5 [facility] 0.02 % 5-01 mL every 6 ity of nebulizer 00:00: (six) [place] solution 00 hours as Medical needed for Branch Wheezing or Shortness of Breath. dexamethaso 2023-0 Yes [id number] 12mg Take 120 [facility] ne 0.1 5-01 mL by ity of mg/mL LOW 00:00: [place] [facility] 00 the Medical ON solution morning. Bran ch ipratropium 2023-0 Yes [id number] .5mg Inhale 2.5 [facility] 0.02 % 5-01 mL every 6 [facility] of nebulizer 00:00: (six) [place] solution 00 hours as Medical needed for Branch Wheezing or Shortness of Breath. dexamethaso 2023-0 Yes [id number] 12mg Take 120 [facility] ne 0.1 5-01 mL by it[facility] of mg/mL LOW 00:00: [place] [facility] 00 the Medical ON solution morning. Bran ch ipratropium 2023-0 Yes [id number] .5mg Inhale 2.5 [facility] 0.02 % 5-01 mL every 6 ity of nebulizer 00:00: (six) [place] solution 00 hours as Medical needed for Branch Wheezing or Shortness of Breath. ipratropium 2023-0 Yes [id number] .5mg Inhale 2.5 [facility] 0.02 % 5-01 mL every 6 ity of nebulizer 00:00: (six) [place] solution 00 hours as Medical needed for Branch Wheezing or Shortness of Breath. ipratropium 2023-0 Yes [id number] .5mg Inhale 2.5 [facility] 0.02 % 5-01 mL every 6 ity of nebulizer 00:00: (six) [place] solution 00 hours as Medical needed for Branch Wheezing or Shortness of Breath. ipratropium 2023-0 Yes [id number] .5mg Inhale 2.5 [facility] 0.02 % 5-01 mL every 6 ity of nebulizer 00:00: (six) [place] solution 00 hours as Medical needed for Branch Wheezing or Shortness of Breath. ipratropium 2023-0 Yes [id number] .5mg Inhale 2.5 [facility] 0.02 % 5-01 mL every 6 ity of nebulizer 00:00: (six) [place] solution 00 hours as Medical needed for Branch Wheezing or Shortness of Breath. ipratropium 2023-0 Yes [id number] .5mg Inhale 2.5 [facility] 0.02 % 5-01 mL every 6 ity of nebulizer 00:00: (six) [place] solution 00 hours as Medical needed for Branch Wheezing or Shortness of Breath. ipratropium 2023-0 Yes [id number] .5mg Inhale 2.5 [facility] 0.02 % 5-01 mL every 6 ity of nebulizer 00:00: (six) [place] solution 00 hours as Medical needed for Branch Wheezing or Shortness of Breath. ipratropium 2023-0 Yes [id number] .5mg Inhale 2.5 [facility] 0.02 % 5-01 mL every 6 ity of nebulizer 00:00: (six) [place] solution 00 hours as Medical needed for Branch Wheezing or Shortness of Breath. ipratropium 2023-0 Yes [id number] .5mg Inhale 2.5 [facility] 0.02 % 5-01 mL every 6 ity of nebulizer 00:00: (six) [place] solution 00 hours as Medical needed for Branch Wheezing or Shortness of Breath. ipratropium 2023-0 Yes [id number] .5mg Inhale 2.5 [facility] 0.02 % 5-01 mL every 6 ity of nebulizer 00:00: (six) [place] solution 00 hours as Medical needed for Branch Wheezing or Shortness of Breath. ipratropium 2023-0 Yes [id number] .5mg Inhale 2.5 [facility] 0.02 % 5-01 mL every 6 ity of nebulizer 00:00: (six) [place] solution 00 hours as Medical needed for Branch Wheezing or Shortness of Breath. ipratropium 2023-0 Yes [id number] .5mg Inhale 2.5 [facility] 0.02 % 5-01 mL every 6 ity of nebulizer 00:00: (six) [place] solution 00 hours as Medical needed for Branch Wheezing or Shortness of Breath. ipratropium 2023-0 Yes [id number] .5mg Inhale 2.5 [facility] 0.02 % 5-01 mL every 6 ity of nebulizer 00:00: (six) [place] solution 00 hours as Medical needed for Branch Wheezing or Shortness of Breath. ipratropium 2023-0 Yes [id number] .5mg Inhale 2.5 [facility] 0.02 % 5-01 mL every 6 ity of nebulizer 00:00: (six) [place] solution 00 hours as Medical needed for Branch Wheezing or Shortness of Breath. ipratropium 2023-0 Yes [id number] .5mg Inhale 2.5 [facility] 0.02 % 5-01 mL every 6 ity of nebulizer 00:00: (six) [place] solution 00 hours as Medical needed for Branch Wheezing or Shortness of Breath. ipratropium 2023-0 Yes [id number] .5mg Inhale 2.5 [facility] 0.02 % 5-01 mL every 6 ity of nebulizer 00:00: (six) [place] solution 00 hours as Medical needed for Branch Wheezing or Shortness of Breath. ipratropium 2023-0 Yes [id number] .5mg Inhale 2.5 [facility] 0.02 % 5-01 mL every 6 ity of nebulizer 00:00: (six) [place] solution 00 hours as Medical needed for Branch Wheezing or Shortness of Breath. ipratropium 2023-0 Yes [id number] .5mg Inhale 2.5 [facility] 0.02 % 5-01 mL every 6 ity of nebulizer 00:00: (six) [place] solution 00 hours as Medical needed for Branch Wheezing or Shortness of Breath. ipratropium 2023-0 Yes [id number] .5mg Inhale 2.5 [facility] 0.02 % 5-01 mL every 6 ity of nebulizer 00:00: (six) [place] solution 00 hours as Medical needed for Branch Wheezing or Shortness of Breath. ipratropium 2023-0 Yes [id number] .5mg Inhale 2.5 [facility] 0.02 % 5-01 mL every 6 ity of nebulizer 00:00: (six) [place] solution 00 hours as Medical needed for Branch Wheezing or Shortness of Breath. ipratropium 2023-0 Yes [id number] .5mg Inhale 2.5 [facility] 0.02 % 5-01 mL every 6 ity of nebulizer 00:00: (six) [place] solution 00 hours as Medical needed for Branch Wheezing or Shortness of Breath. ipratropium 2023-0 Yes [id number] .5mg Inhale 2.5 [facility] 0.02 % 5-01 mL every 6 ity of nebulizer 00:00: (six) [place] solution 00 hours as Medical needed for Branch Wheezing or Shortness of Breath. ipratropium 2023-0 Yes [id number] .5mg Inhale 2.5 [facility] 0.02 % 5-01 mL every 6 ity of nebulizer 00:00: (six) [place] solution 00 hours as Medical needed for Branch Wheezing or Shortness of Breath. ipratropium 2023-0 Yes [id number] .5mg Inhale 2.5 [facility] 0.02 % 5-01 mL every 6 ity of nebulizer 00:00: (six) [place] solution 00 hours as Medical needed for Branch Wheezing or Shortness of Breath. ipratropium 2023-0 Yes [id number] .5mg Inhale 2.5 [facility] 0.02 % 5-01 mL every 6 ity of nebulizer 00:00: (six) [place] solution 00 hours as Medical needed for Branch Wheezing or Shortness of Breath. ipratropium 2023-0 Yes [id number] .5mg Inhale 2.5 [facility] 0.02 % 5-01 mL every 6 ity of nebulizer 00:00: (six) [place] solution 00 hours as Medical needed for Branch Wheezing or Shortness of Breath. ipratropium 2023-0 Yes [id number] .5mg Inhale 2.5 [facility] 0.02 % 5-01 mL every 6 ity of nebulizer 00:00: (six) [place] solution 00 hours as Medical needed for Branch Wheezing or Shortness of Breath. ipratropium 2023-0 Yes [id number] .5mg Inhale 2.5 [facility] 0.02 % 5-01 mL every 6 ity of nebulizer 00:00: (six) [place] solution 00 hours as Medical needed for Branch Wheezing or Shortness of Breath. ipratropium 2023-0 Yes [id number] .5mg Inhale 2.5 [facility] 0.02 % 5-01 mL every 6 ity of nebulizer 00:00: (six) [place] solution 00 hours as Medical needed for Branch Wheezing or Shortness of Breath. ipratropium 2023-0 Yes [id number] .5mg Inhale 2.5 [facility] 0.02 % 5-01 mL every 6 ity of nebulizer 00:00: (six) [place] solution 00 hours as Medical needed for Branch Wheezing or Shortness of Breath. ipratropium 2023-0 Yes [id number] .5mg Inhale 2.5 [facility] 0.02 % 5-01 mL every 6 ity of nebulizer 00:00: (six) [place] solution 00 hours as Medical needed for Branch Wheezing or Shortness of Breath. ipratropium 2023-0 Yes [id number] .5mg Inhale 2.5 [facility] 0.02 % 5-01 mL every 6 ity of nebulizer 00:00: (six) [place] solution 00 hours as Medical needed for Branch Wheezing or Shortness of Breath. ipratropium 2023-0 Yes [id number] .5mg Inhale 2.5 [facility] 0.02 % 5-01 mL every 6 ity of nebulizer 00:00: (six) [place] solution 00 hours as Medical needed for Branch Wheezing or Shortness of Breath. ipratropium 2023-0 Yes [id number] .5mg Inhale 2.5 [facility] 0.02 % 5-01 mL every 6 ity of nebulizer 00:00: (six) [place] solution 00 hours as Medical needed for Branch Wheezing or Shortness of Breath. ipratropium 2023-0 Yes [id number] .5mg Inhale 2.5 [facility] 0.02 % 5-01 mL every 6 ity of nebulizer 00:00: (six) [place] solution 00 hours as Medical needed for Branch Wheezing or Shortness of Breath. ipratropium 2023-0 Yes [id number] .5mg Inhale 2.5 [facility] 0.02 % 5-01 mL every 6 ity of nebulizer 00:00: (six) [place] solution 00 hours as Medical needed for Branch Wheezing or Shortness of Breath. ipratropium 2023-0 Yes [id number] .5mg Inhale 2.5 [facility] 0.02 % 5-01 mL every 6 ity of nebulizer 00:00: (six) [place] solution 00 hours as Medical needed for Branch Wheezing or Shortness of Breath. ipratropium 2023-0 Yes [id number] .5mg Inhale 2.5 [facility] 0.02 % 5-01 mL every 6 ity of nebulizer 00:00: (six) [place] solution 00 hours as Medical needed for Branch Wheezing or Shortness of Breath. ipratropium 2023-0 Yes [id number] .5mg Inhale 2.5 [facility] 0.02 % 5-01 mL every 6 ity of nebulizer 00:00: (six) [place] solution 00 hours as Medical needed for Branch Wheezing or Shortness of Breath. ipratropium 2023-0 Yes [id number] .5mg Inhale 2.5 [facility] 0.02 % 5-01 mL every 6 ity of nebulizer 00:00: (six) [place] solution 00 hours as Medical needed for Branch Wheezing or Shortness of Breath. ipratropium 2023-0 Yes [id number] .5mg Inhale 2.5 [facility] 0.02 % 5-01 mL every 6 ity of nebulizer 00:00: (six) [place] solution 00 hours as Medical needed for Branch Wheezing or Shortness of Breath. ipratropium 2023-0 Yes [id number] .5mg Inhale 2.5 [facility] 0.02 % 5-01 mL every 6 ity of nebulizer 00:00: (six) [place] solution 00 hours as Medical needed for Branch Wheezing or Shortness of Breath. ipratropium 2023-0 Yes [id number] .5mg Inhale 2.5 [facility] 0.02 % 5-01 mL every 6 ity of nebulizer 00:00: (six) [place] solution 00 hours as Medical needed for Branch Wheezing or Shortness of Breath. ipratropium 2023-0 Yes [id number] .5mg Inhale 2.5 [facility] 0.02 % 5-01 mL every 6 ity of nebulizer 00:00: (six) [place] solution 00 hours as Medical needed for Branch Wheezing or Shortness of Breath. ipratropium 2023-0 Yes [id number] .5mg Inhale 2.5 [facility] 0.02 % 5-01 mL every 6 ity of nebulizer 00:00: (six) [place] solution 00 hours as Medical needed for Branch Wheezing or Shortness of Breath. ipratropium 2023-0 Yes [id number] .5mg Inhale 2.5 [facility] 0.02 % 5-01 mL every 6 ity of nebulizer 00:00: (six) [place] solution 00 hours as Medical needed for Branch Wheezing or Shortness of Breath. ipratropium 2023-0 Yes [id number] .5mg Inhale 2.5 [facility] 0.02 % 5-01 mL every 6 ity of nebulizer 00:00: (six) [place] solution 00 hours as Medical needed for Branch Wheezing or Shortness of Breath. ipratropium 2023-0 Yes [id number] .5mg Inhale 2.5 [facility] 0.02 % 5-01 mL every 6 ity of nebulizer 00:00: (six) [place] solution 00 hours as Medical needed for Branch Wheezing or Shortness of Breath. ipratropium 2023-0 Yes [id number] .5mg Inhale 2.5 [facility] 0.02 % 5-01 mL every 6 ity of nebulizer 00:00: (six) [place] solution 00 hours as Medical needed for Branch Wheezing or Shortness of Breath. ipratropium 2023-0 Yes [id number] .5mg Inhale 2.5 [facility] 0.02 % 5-01 mL every 6 ity of nebulizer 00:00: (six) [place] solution 00 hours as Medical needed for Branch Wheezing or Shortness of Breath. ipratropium 2023-0 Yes [id number] .5mg Inhale 2.5 [facility] 0.02 % 5-01 mL every 6 ity of nebulizer 00:00: (six) [place] solution 00 hours as Medical needed for Branch Wheezing or Shortness of Breath. ipratropium 2023-0 Yes [id number] .5mg Inhale 2.5 [facility] 0.02 % 5-01 mL every 6 ity of nebulizer 00:00: (six) [place] solution 00 hours as Medical needed for Branch Wheezing or Shortness of Breath. ipratropium 2023-0 Yes [id number] .5mg Inhale 2.5 [facility] 0.02 % 5-01 mL every 6 ity of nebulizer 00:00: (six) [place] solution 00 hours as Medical needed for Branch Wheezing or Shortness of Breath. ipratropium 2023-0 Yes [id number] .5mg Inhale 2.5 [facility] 0.02 % 5-01 mL every 6 ity of nebulizer 00:00: (six) [place] solution 00 hours as Medical needed for Branch Wheezing or Shortness of Breath. ipratropium 2023-0 Yes [id number] .5mg Inhale 2.5 [facility] 0.02 % 5-01 mL every 6 ity of nebulizer 00:00: (six) [place] solution 00 hours as Medical needed for Branch Wheezing or Shortness of Breath. ipratropium 2023-0 Yes [id number] .5mg Inhale 2.5 [facility] 0.02 % 5-01 mL every 6 ity of nebulizer 00:00: (six) [place] solution 00 hours as Medical needed for Branch Wheezing or Shortness of Breath. ipratropium 2023-0 Yes [id number] .5mg Inhale 2.5 [facility] 0.02 % 5-01 mL every 6 ity of nebulizer 00:00: (six) [place] solution 00 hours as Medical needed for Branch Wheezing or Shortness of Breath. ipratropium 2023-0 Yes [id number] .5mg Inhale 2.5 [facility] 0.02 % 5-01 mL every 6 ity of nebulizer 00:00: (six) [place] solution 00 hours as Medical needed for Branch Wheezing or Shortness of Breath. ipratropium 2023-0 Yes [id number] .5mg Inhale 2.5 [facility] 0.02 % 5-01 mL every 6 ity of nebulizer 00:00: (six) [place] solution 00 hours as Medical needed for Branch Wheezing or Shortness of Breath. ipratropium 2023-0 Yes [id number] .5mg Inhale 2.5 [facility] 0.02 % 5-01 mL every 6 ity of nebulizer 00:00: (six) [place] solution 00 hours as Medical needed for Branch Wheezing or Shortness of Breath. ipratropium 2023-0 Yes [id number] .5mg Inhale 2.5 [facility] 0.02 % 5-01 mL every 6 ity of nebulizer 00:00: (six) [place] solution 00 hours as Medical needed for Branch Wheezing or Shortness of Breath. ipratropium 2023-0 Yes [id number] .5mg Inhale 2.5 [facility] 0.02 % 5-01 mL every 6 ity of nebulizer 00:00: (six) [place] solution 00 hours as Medical needed for Branch Wheezing or Shortness of Breath. ipratropium 2023-0 Yes [id number] .5mg Inhale 2.5 [facility] 0.02 % 5-01 mL every 6 ity of nebulizer 00:00: (six) [place] solution 00 hours as Medical needed for Branch Wheezing or Shortness of Breath. ipratropium 2023-0 Yes [id number] .5mg Inhale 2.5 [facility] 0.02 % 5-01 mL every 6 ity of nebulizer 00:00: (six) [place] solution 00 hours as Medical needed for Branch Wheezing or Shortness of Breath. ipratropium 2023-0 Yes [id number] .5mg Inhale 2.5 [facility] 0.02 % 5-01 mL every 6 ity of nebulizer 00:00: (six) [place] solution 00 hours as Medical needed for Branch Wheezing or Shortness of Breath. ipratropium 2023-0 Yes [id number] .5mg Inhale 2.5 [facility] 0.02 % 5-01 mL every 6 ity of nebulizer 00:00: (six) [place] solution 00 hours as Medical needed for Branch Wheezing or Shortness of Breath. ipratropium 2023-0 Yes [id number] .5mg Inhale 2.5 [facility] 0.02 % 5-01 mL every 6 ity of nebulizer 00:00: (six) [place] solution 00 hours as Medical needed for Branch Wheezing or Shortness of Breath. ipratropium 2023-0 Yes [id number] .5mg Inhale 2.5 [facility] 0.02 % 5-01 mL every 6 ity of nebulizer 00:00: (six) [place] solution 00 hours as Medical needed for Branch Wheezing or Shortness of Breath. ipratropium 2023-0 Yes [id number] .5mg Inhale 2.5 [facility] 0.02 % 5-01 mL every 6 ity of nebulizer 00:00: (six) [place] solution 00 hours as Medical needed for Branch Wheezing or Shortness of Breath. ipratropium 2023-0 Yes [id number] .5mg Inhale 2.5 [facility] 0.02 % 5-01 mL every 6 ity of nebulizer 00:00: (six) [place] solution 00 hours as Medical needed for Branch Wheezing or Shortness of Breath. ipratropium 2023-0 Yes [id number] .5mg Inhale 2.5 [facility] 0.02 % 5-01 mL every 6 ity of nebulizer 00:00: (six) [place] solution 00 hours as Medical needed for Branch Wheezing or Shortness of Breath. ipratropium 2023-0 Yes [id number] .5mg Inhale 2.5 [facility] 0.02 % 5-01 mL every 6 ity of nebulizer 00:00: (six) [place] solution 00 hours as Medical needed for Branch Wheezing or Shortness of Breath. ipratropium 2023-0 Yes [id number] .5mg Inhale 2.5 [facility] 0.02 % 5-01 mL every 6 ity of nebulizer 00:00: (six) [place] solution 00 hours as Medical needed for Branch Wheezing or Shortness of Breath. ipratropium 2023-0 Yes [id number] .5mg Inhale 2.5 [facility] 0.02 % 5-01 mL every 6 ity of nebulizer 00:00: (six) [place] solution 00 hours as Medical needed for Branch Wheezing or Shortness of Breath. ipratropium 2023-0 Yes [id number] .5mg Inhale 2.5 [facility] 0.02 % 5-01 mL every 6 ity of nebulizer 00:00: (six) [place] solution 00 hours as Medical needed for Branch Wheezing or Shortness of Breath. ipratropium 2023-0 Yes [id number] .5mg Inhale 2.5 [facility] 0.02 % 5-01 mL every 6 ity of nebulizer 00:00: (six) [place] solution 00 hours as Medical needed for Branch Wheezing or Shortness of Breath. ipratropium 2023-0 Yes [id number] .5mg Inhale 2.5 [facility] 0.02 % 5-01 mL every 6 ity of nebulizer 00:00: (six) [place] solution 00 hours as Medical needed for Branch Wheezing or Shortness of Breath. ipratropium 2023-0 Yes [id number] .5mg Inhale 2.5 [facility] 0.02 % 5-01 mL every 6 ity of nebulizer 00:00: (six) [place] solution 00 hours as Medical needed for Branch Wheezing or Shortness of Breath. ipratropium 2023-0 Yes [id number] .5mg Inhale 2.5 [facility] 0.02 % 5-01 mL every 6 ity of nebulizer 00:00: (six) [place] solution 00 hours as Medical needed for Branch Wheezing or Shortness of Breath. ipratropium 2023-0 Yes [id number] .5mg Inhale 2.5 [facility] 0.02 % 5-01 mL every 6 ity of nebulizer 00:00: (six) [place] solution 00 hours as Medical needed for Branch Wheezing or Shortness of Breath. ipratropium 2023-0 Yes [id number] .5mg Inhale 2.5 [facility] 0.02 % 5-01 mL every 6 ity of nebulizer 00:00: (six) [place] solution 00 hours as Medical needed for Branch Wheezing or Shortness of Breath. ipratropium 2023-0 Yes [id number] .5mg Inhale 2.5 [facility] 0.02 % 5-01 mL every 6 ity of nebulizer 00:00: (six) [place] solution 00 hours as Medical needed for Branch Wheezing or Shortness of Breath. ipratropium 2023-0 Yes [id number] .5mg Inhale 2.5 [facility] 0.02 % 5-01 mL every 6 ity of nebulizer 00:00: (six) [place] solution 00 hours as Medical needed for Branch Wheezing or Shortness of Breath. ipratropium 2023-0 Yes [id number] .5mg Inhale 2.5 [facility] 0.02 % 5-01 mL every 6 ity of nebulizer 00:00: (six) [place] solution 00 hours as Medical needed for Branch Wheezing or Shortness of Breath. ipratropium 2023-0 Yes [id number] .5mg Inhale 2.5 [facility] 0.02 % 5-01 mL every 6 ity of nebulizer 00:00: (six) [place] solution 00 hours as Medical needed for Branch Wheezing or Shortness of Breath. dexamethaso 2022-0 2022- No [id number] 12mg Take 120 [facility] ne 0.1 5-01 06-05 mL by ity of mg/mL LOW 00:00: 00:00 mouth in [place] as [facility] 00 :00 the Medical ON solution morning. Bran ch dexamethaso 2022-0 2022- No [id number] 12mg Take 120 [facility] ne 0.1 5-01 06-05 mL by ity of mg/mL LOW 00:00: 00:00 mouth in [place] as [facility] 00 :00 the Medical ON solution morning. Bran ch dexamethaso 2022-0 2022- No [id number] 12mg Take 120 [facility] ne 0.1 5-01 [...] ion of Therapy: Other (see Comments) benzonatate 0 Yes [id number] 100mg Take 1 [facility] 100 mg 4-27 capsule by ity of capsule 00:00: mouth 3 [place] 00 (three) Medical times Branch daily as needed for Cough. azithromyci 2023-0 3- No [id number] 250mg Take 6.25 [facility] n 4-27 05-02 mL by ity of (ZITHROMAX) 00:00: 04:59 mouth in [place] 200 mg/5 mL 00 :00 the Medical suspension morning Branch for 4 days. azithromyci 2023-0 3- No [id number] 250mg Take 6.25 [facility] n 4-27 05-02 mL by ity of (ZITHROMAX) 00:00: 04:59 mouth in [place] 200 mg/5 mL 00 :00 the Medical suspension morning Branch for 4 days. azithromyci 2023-0 3- No [id number] 250mg Take 6.25 [facility] n 4-27 05-02 mL by ity of (ZITHROMAX) 00:00: 04:59 mouth in [place] 200 mg/5 mL 00 :00 the Medical suspension morning Branch for 4 days. benzonatate 2023-0 3- No [id number] 100mg Take 1 [facility] 100 mg 4-27 05-01 capsule by ity of capsule 00:00: 00:00 mouth 3 [place] 00 :00 (three) Medical times Branch daily as needed for Cough. benzonatate 2023-0 2023- No [id number] 100mg Take 1 [facility] 100 mg 4-27 05-01 capsule by ity of capsule 00:00: 00:00 mouth 3 [place] 00 :00 (three) Medical times Branch daily as needed for Cough. omeprazole 2023-0 Yes 20mg Take 1 Un[facility] rs 20 mg 4-24 capsule by ity of capsule 00:00: mouth in [place] [address] the Medical morning Branch and 1 capsule in the evening. omeprazole 2023-0 Yes 20mg Take 1 Un[facility] rs 20 mg 4-24 capsule by ity of capsule 00:00: mouth in [place] [address] the Medical morning Branch and 1 capsule in the evening. omeprazole 2023-0 Yes 20mg Take 1 Un[facility] rs 20 mg 4-24 capsule by ity of capsule 00:00: mouth in [place] [address] the Medical morning Branch and 1 capsule in the evening. omeprazole 2023-0 Yes 20mg Take 1 Un[facility] rs 20 mg 4-24 capsule by ity of capsule 00:00: mouth in [place] 00 the Medical morning Branch and 1 capsule in the evening. omeprazole 2023-0 Yes 20mg Take 1 Un[facility] rs 20 mg 4-24 capsule by ity of capsule 00:00: mouth in [place] 00 the Medical morning Branch and 1 capsule in the evening. omeprazole 2023-0 Yes 20mg Take 1 Un[facility] rs 20 mg 4-24 capsule by ity of capsule 00:00: mouth in [place] [address] the Medical morning Branch and 1 capsule in the evening. omeprazole 2023-0 Yes 20mg Take 1 [facility] rs 20 mg 4-24 capsule by ity of capsule 00:00: mouth in [place] [address] the Medical morning Branch and 1 capsule in the evening. omeprazole 2023-0 Yes 20mg Take 1 [facility] rs 20 mg 4-24 capsule by ity of capsule 00:00: mouth in [place] [address] the Medical morning Branch and 1 capsule in the evening. omeprazole 2023-0 Yes 20mg Take 1 [facility] rs 20 mg 4-24 capsule by ity of capsule 00:00: mouth in [place] [address] the Medical morning Branch and 1 capsule in the evening. omeprazole 2023-0 Yes 20mg Take 1 [facility] rs 20 mg 4-24 capsule by ity of capsule 00:00: mouth in [place] [address] the Medical morning Branch and 1 capsule in the evening. omeprazole 2023-0 Yes 20mg Take 1 [facility] rs 20 mg 4-24 capsule by ity of capsule 00:00: mouth in [place] [address] the Medical morning Branch and 1 capsule in the evening. omeprazole 2023-0 Yes 20mg Take 1 [facility] rs 20 mg 4-24 capsule by ity of capsule 00:00: mouth in [place] [address] the Medical morning Branch and 1 capsule in the evening. omeprazole 2023-0 Yes 20mg Take 1 [facility] rs 20 mg 4-24 capsule by ity of capsule 00:00: mouth in [place] [address] the Medical morning Branch and 1 capsule in the evening. omeprazole 2023-0 Yes 20mg Take 1 [facility] rs 20 mg 4-24 capsule by ity of capsule 00:00: mouth in [place] [address] the Medical morning Branch and 1 capsule in the evening. omeprazole 2023-0 Yes 20mg Take 1 [facility] rs 20 mg 4-24 capsule by ity of capsule 00:00: mouth in [place] [address] the Medical morning Branch and 1 capsule in the evening. omeprazole 2023-0 Yes 20mg Take 1 [facility] rs 20 mg 4-24 capsule by ity of capsule 00:00: mouth in [place] [address] the Medical morning Branch and 1 capsule in the evening. omeprazole 2023-0 Yes 20mg Take 1 [facility] rs 20 mg 4-24 capsule by ity of capsule 00:00: mouth in [place] [address] the Medical morning Branch and 1 capsule in the evening. omeprazole 2023-0 Yes 20mg Take 1 [facility] rs 20 mg 4-24 capsule by ity of capsule 00:00: mouth in [place] [address] the Medical morning Branch and 1 capsule in the evening. omeprazole 2023-0 Yes 20mg Take 1 [facility] rs 20 mg 4-24 capsule by ity of capsule 00:00: mouth in [place] [address] the Medical morning Branch and 1 capsule in the evening. omeprazole 2023-0 Yes 20mg Take 1 [facility] rs 20 mg 4-24 capsule by ity of capsule 00:00: mouth in [place] [address] the Medical morning [place] and 1 capsule in the evening. omeprazole 2023-0 Yes 20mg Take 1 [facility] rs 20 mg 4-24 capsule by ity of capsule 00:00: mouth in [place] [address] the Medical morning [place] and 1 capsule in the evening. omeprazole 2023-0 Yes 20mg Take 1 [facility] rs 20 mg 4-24 capsule by ity of capsule 00:00: mouth in [place] [address] the Medical morning [place] and 1 capsule in the evening. omeprazole 2023-0 Yes 20mg Take 1 [facility] rs 20 mg 4-24 capsule by ity of capsule 00:00: mouth in [place] [address] the Medical morning Branch and 1 capsule in the evening. omeprazole 2023-0 Yes 20mg Take 1 [facility] rs 20 mg 4-24 capsule by ity of capsule 00:00: mouth in [place] [address] the Medical morning Branch and 1 capsule in the evening. omeprazole 2023-0 Yes 20mg Take 1 [facility] rs 20 mg 4-24 capsule by ity of capsule 00:00: mouth in [address] Medical morning [place] and 1 capsule in the evening. omeprazole 2023-0 Yes 20mg Take 1 [facility] rs 20 mg 4-24 capsule by ity of capsule 00:00: mouth in [place] [address] the Medical morning Branch and 1 capsule in the evening. omeprazole 2023-0 Yes 20mg Take 1 [facility] rs 20 mg 4-24 capsule by ity of capsule 00:00: mouth in [place] [address] the Medical morning Branch and 1 capsule in the evening. omeprazole 2023-0 Yes 20mg Take 1 [facility] rs 20 mg 4-24 capsule by ity of capsule 00:00: mouth in [place] [address] the Medical morning Branch and 1 capsule in the evening. omeprazole 2023-0 Yes 20mg Take 1 [facility] rs 20 mg 4-24 capsule by ity of capsule 00:00: mouth in [place] [address] the Medical morning Branch and 1 capsule in the evening. omeprazole 2023-0 Yes 20mg Take 1 [facility] 20 mg 4-24 capsule by [facility] capsule 00:00: mouth in [place] [address] the Medical morning Branch and 1 capsule in the evening. omeprazole 2023-0 Yes 20mg Take 1 [facility] 20 mg 4-24 capsule by [facility] capsule 00:00: mouth in [place] [address] the Medical morning Branch and 1 capsule in the evening. omeprazole 2023-0 Yes 20mg Take 1 [facility] 20 mg 4-24 capsule by [facility] capsule 00:00: mouth in [place] [address] the Medical morning Branch and 1 capsule in the evening. omeprazole 2023-0 Yes 20mg Take 1 [facility] 20 mg 4-24 capsule by [facility] capsule 00:00: mouth in [place] [address] the Medical morning [place] and 1 capsule in the evening. omeprazole 2023-0 Yes 20mg Take 1 [facility] 20 mg 4-24 capsule by [facility] capsule 00:00: mouth in [place] [address] the Medical morning [place] and 1 capsule in the evening. omeprazole 2023-0 Yes 20mg Take 1 [facility] 20 mg 4-24 capsule by [facility] capsule 00:00: mouth in [place] [address] the Medical morning Branch and 1 capsule in the evening. omeprazole 2023-0 Yes 20mg Take 1 [facility] 20 mg 4-24 capsule by [facility] capsule 00:00: mouth in [place] [address] the Medical morning Branch and 1 capsule in the evening. omeprazole 2023-0 Yes 20mg Take 1 [facility] 20 mg 4-24 capsule by [facility] capsule 00:00: mouth in [address] Medical morning Branch and 1 capsule in the evening. omeprazole 2023-0 Yes 20mg Take 1 [facility] 20 mg 4-24 capsule by [facility] capsule 00:00: mouth in [place] 00 the Medical morning Branch and 1 capsule in the evening. omeprazole 2023-0 Yes 20mg Take 1 [facility] 20 mg 4-24 capsule by [facility] capsule 00:00: mouth in [place] [address] the Medical morning Branch and 1 capsule in the evening. omeprazole 2023-0 Yes 20mg Take 1 [facility] 20 mg 4-24 capsule by [facility] capsule 00:00: mouth in [place] [address] the Medical morning Branch and 1 capsule in the evening. omeprazole 2023-0 Yes 20mg Take 1 [facility] 20 mg 4-24 capsule by [facility] capsule 00:00: mouth in [place] [address] the Medical morning Branch and 1 capsule in the evening. omeprazole 2023-0 Yes 20mg Take 1 [facility] 20 mg 4-24 capsule by [facility] capsule 00:00: mouth in [place] [address] the Medical morning Branch and 1 capsule in the evening. omeprazole 2023-0 Yes 20mg Take 1 [facility] 20 mg 4-24 capsule by [facility] capsule 00:00: mouth in [place] [address] the Medical morning Branch and 1 capsule in the evening. omeprazole 2023-0 Yes 20mg Take 1 [facility] 20 mg 4-24 capsule by [facility] capsule 00:00: mouth in [place] [address] the Medical morning Branch and 1 capsule in the evening. omeprazole 2023-0 Yes 20mg Take 1 [facility] 20 mg 4-24 capsule by [facility] capsule 00:00: mouth in [place] [address] the Medical morning Branch and 1 capsule in the evening. omeprazole 2023-0 Yes 20mg Take 1 [facility] 20 mg 4-24 capsule by [facility] capsule 00:00: mouth in [place] [address] the Medical morning Branch and 1 capsule in the evening. omeprazole 2023-0 Yes 20mg Take 1 [facility] 20 mg 4-24 capsule by [facility] capsule 00:00: mouth in [place] [address] the Medical morning Branch and 1 capsule in the evening. omeprazole 2023-0 Yes 20mg Take 1 [facility] 20 mg 4-24 capsule by [facility] capsule 00:00: mouth in [place] [address] the Medical morning Branch and 1 capsule in the evening. omeprazole 2023-0 Yes 20mg Take 1 [facility] 20 mg 4-24 capsule by [facility] capsule 00:00: mouth in [place] [address] the Medical morning Branch and 1 capsule in the evening. omeprazole 2023-0 Yes 20mg Take 1 [facility] 20 mg 4-24 capsule by [facility] capsule 00:00: mouth in [place] [address] the Medical morning Branch and 1 capsule in the evening. omeprazole 2023-0 Yes 20mg Take 1 [facility] 20 mg 4-24 capsule by [facility] capsule 00:00: mouth in [place] [address] the Medical morning Branch and 1 capsule in the evening. omeprazole 2023-0 Yes 20mg Take 1 [facility] 20 mg 4-24 capsule by [facility] capsule 00:00: mouth in [place] [address] the Medical morning Branch and 1 capsule in the evening. omeprazole 2023-0 Yes 20mg Take 1 [facility] 20 mg 4-24 capsule by [facility] capsule 00:00: mouth in [place] [address] [facility] morning [place] and 1 capsule in the evening. omeprazole 2023-0 Yes 20mg Take 1 [facility] 20 mg 4-24 capsule by [facility] of capsule 00:00: mouth in [place] [address] the Medical morning [place] and 1 capsule in the evening. omeprazole 2023-0 Yes 20mg Take 1 [facility] 20 mg 4-24 capsule by [facility] of capsule 00:00: mouth in [place] [address] the Medical morning [place] and 1 capsule in the evening. omeprazole 2023-0 Yes 20mg Take 1 [facility] 20 mg 4-24 capsule by [facility] capsule 00:00: mouth in [place] [address] [facility] morning [place] and 1 capsule in the evening. omeprazole 2023-0 Yes 20mg Take 1 [facility] 20 mg 4-24 capsule by [facility] of capsule 00:00: mouth in [place] [address] the Medical morning Branch and 1 capsule in the evening. omeprazole 2023-0 Yes 20mg Take 1 [facility] 20 mg 4-24 capsule by [facility] of capsule 00:00: mouth in [place] [address] the Medical morning [place] and 1 capsule in the evening. omeprazole 2023-0 Yes 20mg Take 1 [facility] 20 mg 4-24 capsule by [facility] of capsule 00:00: mouth in [address] morning [place] and 1 capsule in the evening. diazePAM 2 2023-0 Yes 2mg Take 1 [facility] rs mg tablet 4-21 tablet by ity o f 00:00: mouth in [place] 00 the Medical morning Branch and 1 tablet in the evening. diazePAM 2 3-0 Yes 2mg Take 1 [facility] mg tablet 4-21 tablet by ity o f 00:00: mouth in [place] 00 the Medical morning Branch and 1 tablet in the evening. diazePAM 2 2023-0 Yes 2mg Take 1 [facility] rs mg tablet 4-21 tablet by ity o f 00:00: mouth in [place] 00 the Medical morning Branch and 1 tablet in the evening. diazePAM 2 3-0 Yes 2mg Take 1 [facility] mg tablet 4-21 tablet by ity o f 00:00: mouth in [place] 00 the Medical morning Branch and 1 tablet in the evening. diazePAM 2 3-0 Yes 2mg Take 1 [facility] mg tablet 4-21 tablet by ity o f 00:00: mouth in [place] 00 the Medical morning Branch and 1 tablet in the evening. diazePAM 2 3-0 Yes 2mg Take 1 [facility] mg tablet 4-21 tablet by ity o f 00:00: mouth in [place] 00 the Medical morning Branch and 1 tablet in the evening. diazePAM 2 3-0 Yes 2mg Take 1 [facility] mg tablet 4-21 tablet by ity o f 00:00: mouth in [place] 00 the Medical morning Branch and 1 tablet in the evening. diazePAM 2 3-0 Yes 2mg Take 1 [facility] mg tablet 4-21 tablet by ity o f 00:00: mouth in [place] 00 the Medical morning Branch and 1 tablet in the evening. diazePAM 2 3-0 Yes 2mg Take 1 [facility] mg tablet 4-21 tablet by ity o f 00:00: mouth in [place] 00 the Medical morning Branch and 1 tablet in the evening. diazePAM 2 3-0 Yes 2mg Take 1 [facility] mg tablet 4-21 tablet by ity o f 00:00: mouth in [place] 00 the Medical morning Branch and 1 tablet in the evening. diazePAM 2 3-0 Yes 2mg Take 1 [facility] rs mg tablet 4-21 tablet by ity o f 00:00: mouth in [place] 00 the Medical morning Branch and 1 tablet in the evening. diazePAM 2 2023-0 Yes 2mg Take 1 [facility] mg tablet 4-21 tablet by ity o f 00:00: mouth in [place] 00 the Medical morning Branch and 1 tablet in the evening. diazePAM 2 2023-0 Yes 2mg Take 1 [facility] mg tablet 4-21 tablet by ity o f 00:00: mouth in [place] 00 the Medical morning Branch and 1 tablet in the evening. diazePAM 2 2022-0 Yes 2mg Take 1 [facility] mg tablet 4-21 tablet by ity o f 00:00: mouth in [place] 00 the Medical morning Branch and 1 tablet in the evening. diazePAM 2 2022-0 Yes 2mg Take 1 [facility] mg tablet 4-21 tablet by ity o f 00:00: mouth in [place] 00 the Medical morning Branch and 1 tablet in the evening. diazePAM 2 2022-0 Yes 2mg Take 1 [facility] rs mg tablet 4-21 tablet by ity o f 00:00: mouth in [place] 00 the Medical morning Branch and 1 tablet in the evening. diazePAM 2 2022-0 Yes 2mg Take 1 [facility] mg tablet 4-21 tablet by ity o f 00:00: mouth in [place] 00 the Medical morning Branch and 1 tablet in the evening. diazePAM 2 2022-0 Yes 2mg Take 1 [facility] rs mg tablet 4-21 tablet by ity o f 00:00: mouth in [place] 00 the Medical morning Branch and 1 tablet in the evening. diazePAM 2 2022-0 Yes 2mg Take 1 [facility] rs mg tablet 4-21 tablet by ity o f 00:00: mouth in [place] 00 the Medical morning Branch and 1 tablet in the evening. diazePAM 2 2022-0 Yes 2mg Take 1 [facility] mg tablet 4-21 tablet by ity o f 00:00: mouth in [place] 00 the Medical morning Branch and 1 tablet in the evening. diazePAM 2 2022-0 Yes 2mg Take 1 [facility] mg tablet 4-21 tablet by ity o f 00:00: mouth in [place] 00 the Medical morning Branch and 1 tablet in the evening. diazePAM 2 3-0 Yes 2mg Take 1 [facility] mg tablet 4-21 tablet by ity o f 00:00: mouth in [place] 00 the Medical morning Branch and 1 tablet in the evening. diazePAM 2 3-0 Yes 2mg Take 1 [facility] mg tablet 4-21 tablet by ity o f 00:00: mouth in [place] 00 the Medical morning Branch and 1 [...] by ity o f 00:00: mouth in [place] 00 the Medical morning Branch and 1 tablet in the evening. diazePAM 2 3-0 Yes 2mg Take 1 [facility] rs mg tablet 4-21 tablet by ity o f 00:00: mouth in [place] 00 the Medical morning Branch and 1 tablet in the evening. diazePAM 2 3-0 Yes 2mg Take 1 [facility] mg tablet 4-21 tablet by ity o f 00:00: mouth in [place] 00 the Medical morning Branch and 1 tablet in the evening. diazePAM 2 2022-0 Yes 2mg Take 1 [facility] mg tablet 4-21 tablet by ity o f 00:00: mouth in [place] 00 the Medical morning Branch and 1 tablet in the evening. diazePAM 2 2022-0 Yes 2mg Take 1 [facility] mg tablet 4-21 tablet by ity o f 00:00: mouth in [place] 00 the Medical morning Branch and 1 tablet in the evening. diazePAM 2 3-0 Yes 2mg Take 1 [facility] mg tablet 4-21 tablet by ity o f 00:00: mouth in [place] 00 the Medical morning Branch and 1 tablet in the evening. diazePAM 2 3-0 Yes 2mg Take 1 [facility] rs mg tablet 4-21 tablet by ity o f 00:00: mouth in [place] 00 the Medical morning Branch and 1 tablet in the evening. diazePAM 2 3-0 Yes 2mg Take 1 [facility] rs mg tablet 4-21 tablet by ity o f 00:00: mouth in [place] 00 the Medical morning Branch and 1 tablet in the evening. diazePAM 2 3-0 Yes 2mg Take 1 [facility] rs mg tablet 4-21 tablet by ity o f 00:00: mouth in [place] 00 the Medical morning Branch and 1 tablet in the evening. diazePAM 2 3-0 Yes 2mg Take 1 [facility] rs mg tablet 4-21 tablet by ity o f 00:00: mouth in [place] 00 the Medical morning Branch and 1 tablet in the evening. diazePAM 2 3-0 Yes 2mg Take 1 [facility] rs mg tablet 4-21 tablet by ity o f 00:00: mouth in [place] 00 the Medical morning Branch and 1 tablet in the evening. diazePAM 2 2023-0 Yes 2mg Take 1 [facility] rs mg tablet 4-21 tablet by ity o f 00:00: mouth in [place] 00 the Medical morning Branch and 1 tablet in the evening. diazePAM 2 3-0 Yes 2mg Take 1 [facility] rs mg tablet 4-21 tablet by ity o f 00:00: mouth in [place] 00 the Medical morning Branch and 1 tablet in the evening. diazePAM 2 3-0 Yes 2mg Take 1 [facility] mg tablet 4-21 tablet by ity o f 00:00: mouth in [place] 00 the Medical morning Branch and 1 tablet in the evening. diazePAM 2 3-0 Yes 2mg Take 1 [facility] rs mg tablet 4-21 tablet by ity o f 00:00: mouth in [place] 00 the Medical morning Branch and 1 tablet in the evening. diazePAM 2 3-0 Yes 2mg Take 1 [facility] rs mg tablet 4-21 tablet by ity o f 00:00: mouth in [place] 00 the Medical morning Branch and 1 tablet in the evening. diazePAM 2 3-0 Yes 2mg Take 1 [facility] rs mg tablet 4-21 tablet by ity o f 00:00: mouth in [place] 00 the Medical morning Branch and 1 tablet in the evening. diazePAM 2 3-0 Yes 2mg Take 1 [facility] rs mg tablet 4-21 tablet by ity o f 00:00: mouth in [place] 00 the Medical morning Branch and 1 tablet in the evening. diazePAM 2 3-0 Yes 2mg Take 1 [facility] mg tablet 4-21 tablet by ity o f 00:00: mouth in [place] 00 the Medical morning Branch and 1 tablet in the evening. diazePAM 2 3-0 Yes 2mg Take 1 [facility] rs mg tablet 4-21 tablet by ity o f 00:00: mouth in [place] 00 the Medical morning Branch and 1 tablet in the evening. diazePAM 2 3-0 Yes 2mg Take 1 [facility] rs mg tablet 4-21 tablet by ity o f 00:00: mouth in [place] 00 the Medical morning Branch and 1 tablet in the evening. diazePAM 2 3-0 Yes 2mg Take 1 [facility] rs mg tablet 4-21 tablet by ity o f 00:00: mouth in [place] 00 the Medical morning Branch and 1 tablet in the evening. diazePAM 2 3-0 Yes 2mg Take 1 [facility] rs mg tablet 4-21 tablet by ity o f 00:00: mouth in [place] 00 the Medical morning Branch and 1 tablet in the evening. diazePAM 2 3-0 Yes 2mg Take 1 [facility] rs mg tablet 4-21 tablet by ity o f 00:00: mouth in [place] 00 the Medical morning Branch and 1 tablet in the evening. diazePAM 2 3-0 Yes 2mg Take 1 [facility] rs mg tablet 4-21 tablet by ity o f 00:00: mouth in [place] 00 the Medical morning Branch and 1 tablet in the evening. diazePAM 2 3-0 Yes 2mg Take 1 [facility] rs mg tablet 4-21 tablet by ity o f 00:00: mouth in [place] 00 the Medical morning Branch and 1 tablet in the evening. diazePAM 2 3-0 Yes 2mg Take 1 [facility] mg tablet 4-21 tablet by ity o f 00:00: mouth in [place] 00 the Medical morning Branch and 1 tablet in the evening. diazePAM 2 3-0 Yes 2mg Take 1 [facility] mg tablet 4-21 tablet by ity o f 00:00: mouth in [place] 00 the Medical morning Branch and 1 tablet in the evening. diazePAM 2 3-0 Yes 2mg Take 1 [facility] mg tablet 4-21 tablet by ity o f 00:00: mouth in [place] 00 the Medical morning Branch and 1 tablet in the evening. diazePAM 2 3-0 Yes 2mg Take 1 [facility] mg tablet 4-21 tablet by ity o f 00:00: mouth in [place] 00 the Medical morning Branch and 1 tablet in the evening. diazePAM 2 3-0 Yes 2mg Take 1 [facility] rs mg tablet 4-21 tablet by ity o f 00:00: mouth in [place] 00 the Medical morning Branch and 1 tablet in the evening. diazePAM 2 3-0 Yes 2mg Take 1 [facility] mg tablet 4-21 tablet by ity o f 00:00: mouth in [place] 00 the Medical morning Branch and 1 tablet in the evening. diazePAM 2 3-0 Yes 2mg Take 1 [facility] rs mg tablet 4-21 tablet by ity o f 00:00: mouth in [place] 00 the Medical morning Branch and 1 tablet in the evening. diazePAM 2 3-0 Yes 2mg Take 1 [facility] mg tablet 4-21 tablet by ity o f 00:00: mouth in [place] 00 the Medical morning Branch and 1 tablet in the evening. diazePAM 2 3-0 Yes 2mg Take 1 [facility] rs mg tablet 4-21 tablet by ity o f 00:00: mouth in [place] 00 the Medical morning Branch and 1 tablet in the evening. diazePAM 2 3-0 Yes 2mg Take 1 [facility] mg tablet 4-21 tablet by ity o f 00:00: mouth in [place] 00 the Medical morning Branch and 1 tablet in the evening. diazePAM 2 3-0 Yes 2mg Take 1 [facility] rs mg tablet 4-21 tablet by ity o f 00:00: mouth in [place] 00 the Medical morning Branch and 1 tablet in the evening. diazePAM 2 3-0 Yes 2mg Take 1 [facility] rs mg tablet 4-21 tablet by ity o f 00:00: mouth in [place] 00 the Medical morning Branch and 1 tablet in the evening. diazePAM 2 2022-0 Yes 2mg Take 1 [facility] rs mg tablet 4-21 tablet by ity o f 00:00: mouth in [place] 00 the Medical morning Branch and 1 tablet in the evening. diazePAM 2 3-0 Yes 2mg Take 1 [facility] rs mg tablet 4-21 tablet by ity o f 00:00: mouth in [place] 00 the Medical morning Branch and 1 tablet in the evening. diazePAM 2 3-0 Yes 2mg Take 1 [facility] rs mg tablet 4-21 tablet by ity o f 00:00: mouth in [place] 00 the Medical morning Branch and 1 tablet in the evening. diazePAM 2 3-0 Yes 2mg Take 1 [facility] rs mg tablet 4-21 tablet by ity o f 00:00: mouth in [place] 00 the Medical morning Branch and 1 tablet in the evening. diazePAM 2 3-0 Yes 2mg Take 1 [facility] rs mg tablet 4-21 tablet by ity o f 00:00: mouth in [place] 00 the Medical morning Branch and 1 tablet in the evening. diazePAM 2 3-0 Yes 2mg Take 1 [facility] rs mg tablet 4-21 tablet by ity o f 00:00: mouth in [place] 00 the Medical morning Branch and 1 tablet in the evening. diazePAM 2 3-0 Yes 2mg Take 1 [facility] rs mg tablet 4-21 tablet by ity o f 00:00: mouth in [place] 00 the Medical morning Branch and 1 tablet in the evening. diazePAM 2 3-0 Yes 2mg Take 1 [facility] rs mg tablet 4-21 tablet by ity o f 00:00: mouth in [place] 00 the Medical morning Branch and 1 tablet in the evening. diazePAM 2 3-0 Yes 2mg Take 1 [facility] rs mg tablet 4-21 tablet by ity o f 00:00: mouth in [place] 00 the Medical morning Branch and 1 tablet in the evening. diazePAM 2 3-0 Yes 2mg Take 1 [facility] rs mg tablet 4-21 tablet by ity o f 00:00: mouth in [place] 00 the Medical morning Branch and 1 tablet in the evening. diazePAM 2 2022-0 Yes 2mg Take 1 [facility] rs mg tablet 4-21 tablet by ity o f 00:00: mouth in [place] 00 the Medical morning Branch and 1 tablet in the evening. diazePAM 2 2022-0 Yes 2mg Take 1 [facility] rs mg tablet 4-21 tablet by ity o f 00:00: mouth in [place] 00 the Medical morning Branch and 1 tablet in the evening. diazePAM 2 3-0 Yes 2mg Take 1 [facility] rs mg tablet 4-21 tablet by ity o f 00:00: mouth in [place] 00 the Medical morning Branch and 1 tablet in the evening. diazePAM 2 3-0 Yes 2mg Take 1 [facility] rs mg tablet 4-21 tablet by ity o f 00:00: mouth in [place] 00 the Medical morning Branch and 1 tablet in the evening. diazePAM 2 3-0 Yes 2mg Take 1 [facility] mg tablet 4-21 tablet by it[facility] o f 00:00: mouth in [place] 00 the Medical morning Branch and 1 tablet in the evening. diazePAM 2 3-0 Yes 2mg Take 1 [facility] rs mg tablet 4-21 tablet by ity o f 00:00: mouth in [place] 00 the Medical morning Branch and 1 tablet in the evening. diazePAM 2 3-0 Yes 2mg Take 1 [facility] rs mg tablet 4-21 tablet by it[facility] o f 00:00: mouth in [place] 00 the Medical morning Branch and 1 tablet in the evening. diazePAM 2 3-0 Yes 2mg Take 1 [facility] rs mg tablet 4-21 tablet by ity o f 00:00: mouth in [place] 00 the Medical morning Branch and 1 tablet in the evening. diazePAM 2 3-0 Yes 2mg Take 1 [facility] rs mg tablet 4-21 tablet by [facility] o f 00:00: mouth in [place] 00 the Medical morning Branch and 1 tablet in the evening. diazePAM 2 3-0 Yes 2mg Take 1 [facility] mg tablet 4-21 tablet by it[facility] o f 00:00: mouth in [place] 00 the Medical morning Branch and 1 tablet in the evening. diazePAM 2 2022-0 Yes 2mg Take 1 [facility] mg tablet 4-21 tablet by it[facility] o f 00:00: mouth in [place] 00 the Medical morning Branch and 1 tablet in the evening. diazePAM 2 2022-0 Yes 2mg Take 1 [facility] mg tablet 4-21 tablet by it[facility] o f 00:00: mouth in [place] 00 the Medical morning Branch and 1 tablet in the evening. diazePAM 2 2022-0 Yes 2mg Take 1 [facility] mg tablet 4-21 tablet by it[facility] o f 00:00: mouth in [place] 00 the Medical morning Branch and 1 tablet in the evening. diazePAM 2 3-0 Yes 2mg Take 1 [facility] mg tablet 4-21 tablet by it[facility] o f 00:00: mouth in [place] 00 the Medical morning Branch and 1 tablet in the evening. diazePAM 2 3-0 Yes 2mg Take 1 [facility] mg tablet 4-21 tablet by it[facility] o f 00:00: mouth in [place] 00 the Medical morning Branch and 1 tablet in the evening. diazePAM 2 3-0 Yes 2mg Take 1 [facility] mg tablet 4-21 tablet by it[facility] o f 00:00: mouth in [place] 00 the Medical morning Branch and 1 tablet in the evening. diazePAM 2 3-0 Yes 2mg Take 1 [facility] mg tablet 4-21 tablet by [facility] o f 00:00: mouth in [place] 00 the Medical morning Branch and 1 tablet in the evening. diazePAM 2 3-0 Yes 2mg Take 1 [facility] mg tablet 4-21 tablet by [facility] o f 00:00: mouth in [place] 00 the Medical morning Branch and 1 tablet in the evening. diazePAM 2 3-0 Yes 2mg Take 1 [facility] mg tablet 4-21 tablet by [facility] o f 00:00: mouth in [place] 00 the Medical morning Branch and 1 tablet in the evening. diazePAM 2 2023-0 Yes 2mg Take 1 [facility] mg tablet 4-21 tablet by [facility] o f 00:00: mouth in [place] 00 the Medical morning Branch and 1 tablet in the evening. diazePAM 2 2023-0 Yes 2mg Take 1 [facility] mg tablet 4-21 tablet by [facility] o f 00:00: mouth in [place] 00 the Medical morning Branch and 1 tablet in the evening. diazePAM 2 2023-0 Yes 2mg Take 1 [facility] mg tablet 4-21 tablet by [facility] o f 00:00: mouth in [place] 00 the Medical morning Branch and 1 tablet in the evening. diazePAM 2 2023-0 Yes 2mg Take 1 [facility] mg tablet 4-21 tablet by [facility] o f 00:00: mouth in [place] 00 the Medical morning Branch and 1 tablet in the evening. diazePAM 2 2023-0 Yes 2mg Take 1 [facility] mg tablet 4-21 tablet by [facility] o f 00:00: mouth in [place] 00 the Medical morning Branch and 1 tablet in the evening. diazePAM 2 2023-0 Yes 2mg Take 1 [facility] mg tablet 4-21 tablet by [facility] o f 00:00: mouth in [place] the Medical morning Branch and 1 tablet in the evening. diazePAM 2 2023-0 Yes 2mg Take 1 [facility] mg tablet 4-21 tablet by [facility] o f 00:00: mouth in [place] the Medical morning Branch and 1 tablet in the evening. diazePAM 2 2023-0 Yes 2mg Take 1 [facility] mg tablet 4-21 tablet by [facility] o f 00:00: mouth in [place] the Medical morning Branch and 1 tablet in the evening. omeprazole 2023-0 Yes [id number] 40mg Take 1 [facility] 40 mg 4-19 capsule by [facility] capsule 00:00: mouth in [place] [address] the Medical morning Branch and 1 capsule in the evening. omeprazole 2023-0 Yes [id number] 40mg Take 1 [facility] 40 mg 4-19 capsule by [facility] capsule 00:00: mouth in [place] [address] the Medical morning Branch and 1 capsule in the evening. omeprazole 2023-0 Yes [id number] 40mg Take 1 [facility] 40 mg 4-19 capsule by [facility] of capsule 00:00: mouth in [place] [address] the Medical morning Branch and 1 capsule in the evening. omeprazole 2023-0 Yes [id number] 40mg Take 1 [facility] 40 mg 4-19 capsule by [facility] of capsule 00:00: mouth in [place] [address] the Medical morning Branch and 1 capsule in the evening. omeprazole 2023-0 Yes [id number] 40mg Take 1 [facility] 40 mg 4-19 capsule by [facility] of capsule 00:00: mouth in [place] [address] the Medical morning Branch and 1 capsule in the evening. omeprazole 2023-0 Yes [id number] 40mg Take 1 [facility] 40 mg 4-19 capsule by [facility] of capsule 00:00: mouth in [place] [address] the Medical morning Branch and 1 capsule in the evening. omeprazole 2023-0 Yes [id number] 40mg Take 1 [facility] 40 mg 4-19 capsule by [facility] of capsule 00:00: mouth in [place] [address] the Medical morning Branch and 1 capsule in the evening. omeprazole 2023-0 Yes [id number] 40mg Take 1 [facility] 40 mg 4-19 capsule by [facility] of capsule 00:00: mouth in [place] [address] the Medical morning Branch and 1 capsule in the evening. omeprazole 2023-0 Yes [id number] 40mg Take 1 [facility] 40 mg 4-19 capsule by [facility] of capsule 00:00: mouth in [place] [address] the Medical morning [place] and 1 capsule in the evening. omeprazole 2023-0 Yes [id number] 40mg Take 1 [facility] 40 mg 4-19 capsule by [facility] of capsule 00:00: mouth in [place] [address] [facility] morning [place] and 1 capsule in the evening. omeprazole 2023-0 Yes [id number] 40mg Take 1 [facility] 40 mg 4-19 capsule by [facility] of capsule 00:00: mouth in [place] [address] the Medical morning Branch and 1 capsule in the evening. omeprazole 2023-0 Yes [id number] 40mg Take 1 [facility] 40 mg 4-19 capsule by [facility] of capsule 00:00: mouth in [place] [address] the Medical morning Branch and 1 capsule in the evening. omeprazole 2023-0 Yes [id number] 40mg Take 1 [facility] 40 mg 4-19 capsule by [facility] of capsule 00:00: mouth in [place] [address] the Medical morning [place] and 1 capsule in the evening. omeprazole 2023-0 Yes [id number] 40mg Take 1 [facility] 40 mg 4-19 capsule by [facility] of capsule 00:00: mouth in [place] 00 the Medical morning Branch and 1 capsule in the evening. omeprazole 2023-0 Yes [id number] 40mg Take 1 [facility] 40 mg 4-19 capsule by [facility] of capsule 00:00: mouth in [place] [address] [facility] morning [place] and 1 capsule in the evening. omeprazole 2023-0 Yes [id number] 40mg Take 1 [facility] 40 mg 4-19 capsule by [facility] of capsule 00:00: mouth in [place] [address] the Medical morning [place] and 1 capsule in the evening. omeprazole 2023-0 Yes [id number] 40mg Take 1 [facility] 40 mg 4-19 capsule by [facility] of capsule 00:00: mouth in [address] morning [place] and 1 capsule in the evening. omeprazole 2023-0 Yes [id number] 40mg Take 1 [facility] 40 mg 4-19 capsule by [facility] of capsule 00:00: mouth in [address] morning [place] and 1 capsule in the evening. omeprazole 2023-0 Yes [id number] 40mg Take 1 [facility] 40 mg 4-19 capsule by [facility] of capsule 00:00: mouth in [address] morning [place] and 1 capsule in the evening. omeprazole 2023-0 Yes [id number] 40mg Take 1 [facility] 40 mg 4-19 capsule by ity of capsule 00:00: mouth in [address] morning [place] and 1 capsule in the evening. omeprazole 2023-0 Yes [id number] 40mg Take 1 [facility] 40 mg 4-19 capsule by ity of capsule 00:00: mouth in [address] morning [place] and 1 capsule in the evening. omeprazole 2023-0 Yes [id number] 40mg Take 1 [facility] 40 mg 4-19 capsule by ity of capsule 00:00: mouth in [address] morning [place] and 1 capsule in the evening. omeprazole 2023-0 Yes [id number] 40mg Take 1 [facility] 40 mg 4-19 capsule by ity of capsule 00:00: mouth in [address] morning [place] and 1 capsule in the evening. omeprazole 2023-0 Yes [id number] 40mg Take 1 [facility] 40 mg 4-19 capsule by ity of capsule 00:00: mouth in [address] morning [place] and 1 capsule in the evening. omeprazole 2023-0 Yes [id number] 40mg Take 1 [facility] 40 mg 4-19 capsule by ity of capsule 00:00: mouth in [place] [address] the Medical morning Branch and 1 capsule in the evening. omeprazole 2023-0 Yes [id number] 40mg Take 1 [facility] 40 mg 4-19 capsule by ity of capsule 00:00: mouth in [place] [address] the Medical morning Branch and 1 capsule in the evening. omeprazole 2023-0 Yes [id number] 40mg Take 1 [facility] 40 mg 4-19 capsule by ity of capsule 00:00: mouth in [place] [address] the Medical morning Branch and 1 capsule in the evening. omeprazole 2023-0 Yes [id number] 40mg Take 1 [facility] 40 mg 4-19 capsule by ity of capsule 00:00: mouth in [place] [address] the Medical morning Branch and 1 capsule in the evening. omeprazole 2023-0 Yes [id number] 40mg Take 1 [facility] 40 mg 4-19 capsule by ity of capsule 00:00: mouth in [place] [address] the Medical morning Branch and 1 capsule in the evening. omeprazole 2023-0 Yes [id number] 40mg Take 1 [facility] 40 mg 4-19 capsule by ity of capsule 00:00: mouth in [address] Medical morning [place] and 1 capsule in the evening. omeprazole 2023-0 Yes [id number] 40mg Take 1 [facility] 40 mg 4-19 capsule by ity of capsule 00:00: mouth in [place] [address] the Medical morning Branch and 1 capsule in the evening. omeprazole 2023-0 Yes [id number] 40mg Take 1 [facility] 40 mg 4-19 capsule by ity of capsule 00:00: mouth in [place] [address] the Medical morning [place] and 1 capsule in the evening. omeprazole 2023-0 Yes [id number] 40mg Take 1 [facility] 40 mg 4-19 capsule by ity of capsule 00:00: mouth in [address] Medical morning Branch and 1 capsule in the evening. omeprazole 2023-0 2023- No [id number] 40mg Take 1 [facility] 40 mg 4-19 06-05 capsule by ity of capsule 00:00: 00:00 mouth in [place] 00 :00 the Medical morning [place] and 1 capsule in the evening. omeprazole 2023-0 2023- No [id number] 40mg Take 1 [facility] 40 mg 4-19 06-05 capsule by ity of capsule 00:00: 00:00 mouth in [place] 00 :00 [facility] Medical morning [place] and 1 capsule in the evening. omeprazole 2023-0 2023- No [id number] 40mg Take 1 [facility] 40 mg 11-04-05 capsule by ity of capsule 00:00: 00:00 mouth in [place] 00 :00 the Medical morning Branch and 1 capsule in the evening. IMITREX 5 Yes as needed Uni vers MG/ACTUATIO 4-18 for ity of N NASAL 09:34: migraines SPRY Medical Branch [facility] Yes Apply to [place] 0.1% in 4-18 affected ity o f aquaphor 09:34: area(s). [place] (COMPOUNDED 00 Medical ) ointment Branch cariprazine Yes 1.5mg Take 1.5 U nivers (VRAYLAR) 4-18 mg by ity of 1.5 mg (1)- 09:34: mouth [place] 3 mg (6) 00 every Medical CpPk morning. Branch IMITREX 5 Yes as needed Uni vers MG/ACTUATIO 4-18 for ity of N NASAL 09:34: migraines [facility] Medical Branch [facility] Yes Apply to [place] 0.1% in 4-18 affected ity o f aquaphor 09:34: area(s). [place] (COMPOUNDED 00 Medical ) ointment Branch cariprazine Yes 1.5mg Take 1.5 U nivers (VRAYLAR) 4-18 mg by ity of 1.5 mg (1)- 09:34: mouth [place] 3 mg (6) 00 every Medical CpPk morning. Branch IMITREX 5 Yes as needed Uni vers MG/ACTUATIO 4-18 for ity of N NASAL 09:34: migraines SPRY [facility] Branch [facility] Yes Apply to [place] 0.1% in 4-18 affected ity o f aquaphor 09:34: area(s). [place] (COMPOUNDED 00 Medical ) ointment Branch cariprazine Yes 1.5mg Take 1.5 U nivers (VRAYLAR) 4-18 mg by ity of 1.5 mg (1)- 09:34: mouth [place] 3 mg (6) 00 every Medical CpPk morning. Branch IMITREX 5 Yes as needed Uni vers MG/ACTUATIO 4-18 for ity of N NASAL 09:34: migraines [place] SPRY Medical Branch [facility] Yes Apply to [place] 0.1% in 4-18 affected ity o f aquaphor 09:34: area(s). [place] (COMPOUNDED 00 Medical ) ointment Branch cariprazine Yes 1.5mg Take 1.5 U nivers (VRAYLAR) 4-18 mg by ity of 1.5 mg (1)- 09:34: mouth [place] 3 mg (6) 00 every Medical CpPk morning. Branch IMITREX 5 Yes as needed Uni vers MG/ACTUATIO 4-18 for ity of N NASAL 09:34: migraines [place] SPRY Medical Branch [facility] Yes Apply to [place] 0.1% in 4-18 affected ity o f aquaphor 09:34: area(s). [place] (COMPOUNDED 00 Medical ) ointment Branch cariprazine Yes 1.5mg Take 1.5 U nivers (VRAYLAR) 4-18 mg by ity of 1.5 mg (1)- 09:34: mouth [place] 3 mg (6) 00 every Medical CpPk morning. Branch IMITREX 5 Yes as needed Uni vers MG/ACTUATIO 4-18 for ity of N NASAL 09:34: migraines [place] SPRY Medical Branch [facility] Yes Apply to [place] 0.1% in 4-18 affected ity o f aquaphor 09:34: area(s). [place] (COMPOUNDED 00 Medical ) ointment Branch cariprazine Yes 1.5mg Take 1.5 U nivers (VRAYLAR) 4-18 mg by ity of 1.5 mg (1)- 09:34: mouth [place] 3 mg (6) 00 every Medical CpPk morning. Branch IMITREX 5 Yes as needed Uni vers MG/ACTUATIO 4-18 for ity of N NASAL 09:34: migraines [place] SPRY 00 Medical Branch [facility] Yes Apply to [place] [...] 09:34: migraines [place] SPRY 00 Medical Branch [facility] Yes Apply to [place] [...] migraines [place] SPRY Medical Branch [facility] Yes Apply to [place] 0.1% in 4-18 affected ity o f aquaphor 09:34: area(s). [place] (COMPOUNDED 00 Medical ) ointment Branch cariprazine Yes 1.5mg Take 1.5 U nivers (VRAYLAR) 4-18 mg by ity of 1.5 mg (1)- 09:34: mouth [place] 3 mg (6) 00 every Medical CpPk morning. Branch IMITREX 5 Yes as needed Uni vers MG/ACTUATIO 4-18 for ity of N NASAL 09:34: migraines [place] SPRY 00 Medical Branch [facility] Yes Apply to [place] [...] migraines [place] SPRY Medical Branch [facility] Yes Apply to [place] 0.1% in 4-18 affected ity o f aquaphor 09:34: area(s). [place] (COMPOUNDED 00 Medical ) ointment Branch cariprazine Yes 1.5mg Take 1.5 U nivers (VRAYLAR) 4-18 mg by ity of 1.5 mg (1)- 09:34: mouth [place] 3 mg (6) 00 every Medical CpPk morning. Branch IMITREX 5 Yes as needed Uni vers MG/ACTUATIO 4-18 for ity of N NASAL 09:34: migraines [place] SPRY Medical Branch [facility] Yes Apply to [place] 0.1% in 4-18 affected ity o f aquaphor 09:34: area(s). [place] (COMPOUNDED 00 Medical ) ointment Branch cariprazine Yes 1.5mg Take 1.5 U nivers (VRAYLAR) 4-18 mg by ity of 1.5 mg (1)- 09:34: mouth [place] 3 mg (6) 00 every Medical CpPk morning. Branch IMITREX 5 Yes as needed Uni vers MG/ACTUATIO 4-18 for ity of N NASAL 09:34: migraines [place] SPRY Medical Branch [facility] Yes Apply to [place] 0.1% in 4-18 affected ity o f aquaphor 09:34: area(s). [place] (COMPOUNDED 00 Medical ) ointment Branch cariprazine Yes 1.5mg Take 1.5 U nivers (VRAYLAR) 4-18 mg by ity of 1.5 mg (1)- 09:34: mouth [place] 3 mg (6) 00 every Medical CpPk morning. Branch IMITREX 5 Yes as needed Uni vers MG/ACTUATIO 4-18 for ity of N NASAL 09:34: migraines [place] SPRY 00 Medical Branch [facility] Yes Apply to [place] [...] 09:34: migraines [place] SPRY 00 Medical Branch [facility] Yes Apply to [place] [...] migraines [place] SPRY Medical Branch [facility] Yes Apply to [place] 0.1% in 4-18 affected ity o f aquaphor 09:34: area(s). [place] (COMPOUNDED 00 Medical ) ointment Branch cariprazine Yes 1.5mg Take 1.5 U nivers (VRAYLAR) 4-18 mg by ity of 1.5 mg (1)- 09:34: mouth [place] 3 mg (6) 00 every Medical CpPk morning. Branch IMITREX 5 Yes as needed Uni vers MG/ACTUATIO 4-18 for ity of N NASAL 09:34: migraines [place] SPRY 00 Medical Branch [facility] Yes Apply to [place] [...] migraines [place] SPRY Medical Branch [facility] Yes Apply to [place] 0.1% in 4-18 affected ity o f aquaphor 09:34: area(s). [place] (COMPOUNDED 00 Medical ) ointment Branch cariprazine Yes 1.5mg Take 1.5 U nivers (VRAYLAR) 4-18 mg by ity of 1.5 mg (1)- 09:34: mouth [place] 3 mg (6) 00 every Medical CpPk morning. Branch IMITREX 5 Yes as needed Uni vers MG/ACTUATIO 4-18 for ity of N NASAL 09:34: migraines [place] SPRY Medical Branch [facility] Yes Apply to [place] 0.1% in 4-18 affected ity o f aquaphor 09:34: area(s). [place] (COMPOUNDED 00 Medical ) ointment Branch cariprazine Yes 1.5mg Take 1.5 U nivers (VRAYLAR) 4-18 mg by ity of 1.5 mg (1)- 09:34: mouth [place] 3 mg (6) 00 every Medical CpPk morning. Branch IMITREX 5 Yes as needed Uni vers MG/ACTUATIO 4-18 for ity of N NASAL 09:34: migraines [place] SPRY Medical Branch [facility] Yes Apply to [place] 0.1% in 4-18 affected ity o f aquaphor 09:34: area(s). [place] (COMPOUNDED 00 Medical ) ointment Branch cariprazine Yes 1.5mg Take 1.5 U nivers (VRAYLAR) 4-18 mg by ity of 1.5 mg (1)- 09:34: mouth [place] 3 mg (6) 00 every Medical CpPk morning. Branch IMITREX 5 Yes as needed Uni vers MG/ACTUATIO 4-18 for ity of N NASAL 09:34: migraines [place] SPRY 00 Medical Branch [facility] Yes Apply to [place] [...] 09:34: migraines [place] SPRY 00 Medical Branch [facility] Yes Apply to [place] [...] migraines [place] SPRY Medical Branch [facility] Yes Apply to [place] 0.1% in 4-18 affected ity o f aquaphor 09:34: area(s). [place] (COMPOUNDED 00 Medical ) ointment Branch cariprazine Yes 1.5mg Take 1.5 U nivers (VRAYLAR) 4-18 mg by ity of 1.5 mg (1)- 09:34: mouth [place] 3 mg (6) 00 every Medical CpPk morning. Branch IMITREX 5 Yes as needed Uni vers MG/ACTUATIO 4-18 for ity of N NASAL 09:34: migraines [place] SPRY 00 Medical Branch [facility] Yes Apply to [place] [...] migraines [place] SPRY Medical Branch [facility] Yes Apply to [place] 0.1% in 4-18 affected ity o f aquaphor 09:34: area(s). [place] (COMPOUNDED 00 Medical ) ointment Branch cariprazine Yes 1.5mg Take 1.5 U nivers (VRAYLAR) 4-18 mg by ity of 1.5 mg (1)- 09:34: mouth [place] 3 mg (6) 00 every Medical CpPk morning. Branch IMITREX 5 Yes as needed Uni vers MG/ACTUATIO 4-18 for ity of N NASAL 09:34: migraines [place] SPRY Medical Branch [facility] Yes Apply to [place] 0.1% in 4-18 affected ity o f aquaphor 09:34: area(s). [place] (COMPOUNDED 00 Medical ) ointment Branch cariprazine Yes 1.5mg Take 1.5 U nivers (VRAYLAR) 4-18 mg by ity of 1.5 mg (1)- 09:34: mouth [place] 3 mg (6) 00 every Medical CpPk morning. Branch IMITREX 5 Yes as needed Uni vers MG/ACTUATIO 4-18 for ity of N NASAL 09:34: migraines [place] SPRY Medical Branch [facility] Yes Apply to [place] 0.1% in 4-18 affected ity o f aquaphor 09:34: area(s). [place] (COMPOUNDED 00 Medical ) ointment Branch cariprazine Yes 1.5mg Take 1.5 U nivers (VRAYLAR) 4-18 mg by ity of 1.5 mg (1)- 09:34: mouth [place] 3 mg (6) 00 every Medical CpPk morning. Branch IMITREX 5 Yes as needed Uni vers MG/ACTUATIO 4-18 for ity of N NASAL 09:34: migraines [place] SPRY 00 Medical Branch [facility] Yes Apply to [place] [...] affected ity o f aquaphor 09:34: area(s). [place] (COMPOUNDED 00 Medical ) ointment Branch IMITREX 5 Yes as needed Uni vers MG/ACTUATIO 4-18 for ity of N NASAL 09:34: migraines [place] SPRY 00 Medical Branch triamcinolo Yes Apply to [place] 0.1% in -18 affected ity o f aquaphor 09:34: area(s). [place] (COMPOUNDED 00 Medical ) ointment Branch IMITREX [...] [place] SPRY 00 Medical Branch [facility] Yes Apply to [place] 0.1% in -18 affected ity o f aquaphor 09:34: area(s). [place] (COMPOUNDED 00 Medical ) ointment Branch IMITREX 5 Yes as needed Uni vers MG/ACTUATIO -18 for ity of N NASAL 09:34: migraines [place] SPRY 00 Medical Branch [facility] Yes Apply to [place] 0.1% in -18 affected ity o f aquaphor 09:34: area(s). [place] (COMPOUNDED 00 Medical ) ointment Branch IMITREX 5 Yes as needed Uni vers MG/ACTUATIO -18 for ity of N NASAL 09:34: migraines [place] SPRY 00 Medical Branch [facility] Yes Apply to [place] 0.1% in -18 affected ity o f aquaphor 09:34: area(s). [place] (COMPOUNDED 00 Medical ) ointment Branch IMITREX 5 Yes as needed Uni vers MG/ACTUATIO 4-18 for ity of N NASAL 09:34: migraines [place] SPRY 00 Medical Branch [facility] Yes Apply to [place] 0.1% in -18 affected ity o f aquaphor 09:34: area(s). [place] (COMPOUNDED 00 Medical ) ointment Branch IMITREX 5 Yes as needed Uni vers MG/ACTUATIO 4-18 for ity of N NASAL 09:34: migraines [place] SPRY 00 Medical Branch [facility] Apply to [place] 0.1% in -18 affected ity o f aquaphor 09:34: area(s). [place] (COMPOUNDED 00 Medical ) ointment Branch IMITREX 5 Yes as needed Uni vers MG/ACTUATIO 18 for ity of N NASAL 09:34: migraines [place] SPRY 00 Medical Branch [facility] Yes Apply to [place] 0.1% in -18 affected ity o f aquaphor 09:34: area(s). [place] (COMPOUNDED 00 Medical ) ointment Branch IMITREX 5 Yes as needed Uni vers MG/ACTUATIO 18 for ity of N NASAL 09:34: migraines [place] SPRY 00 Medical Branch triamcinolo Yes Apply to [place] 0.1% in -18 affected ity o f aquaphor 09:34: area(s). [place] (COMPOUNDED Medical ) ointment Branch dicyclomine 2022- No [...] 15 Minutes, 100 mL iopamidol 2022- No [id number] 80mL 80 mL, Univers (ISOVUE 10-29 Intravenou [...] On [place] 10/29/22 at 0430, LESLIE alum-mag 0 2022- No 30mL 30 mL, Univer s [...] 1 Medical 40 mg dose, On Branch [facility] 10/29/22 at 0345 proMETHazin 2022- No 25mg 25 mg, IV Univers e 10-29 Piggyback, ity of (PHENERGAN) 08:45: 10:19 at 200 [place] as 25 mg in [place] 00 :00 mL/hr Medical 50 mL IV Administer Branc h piggyback over 15 (CNR) Minutes, ONCE, 1 dose, On [facility] 10/29/22 at 0345, LESLIE dicyclomine 2022-0 3- No [id number] 20mg Take 1 Univers 20 mg 10-29-21 tablet by ity of tablet 00:00: 04:59 mouth 4 [place] 00 :00 (four) Medical times [place] daily for 7 days. dicyclomine 2023-0 2023- No [id number] 20mg Take 1 [facility] 20 mg 10-29-21 tablet by ity of tablet 00:00: 04:59 mouth 4 [place] 00 :00 (four) Medical times [place] daily for 7 days. dicyclomine 2023-0 2023- No [id number] 20mg Take 1 [facility] 20 mg 10-29-21 tablet by ity of tablet 00:00: 04:59 mouth 4 [place] 00 :00 (four) Medical times [place] daily for 7 days. dicyclomine 2023-0 2023- No [id number] 20mg Take 1 [facility] 20 mg 10-29-21 tablet by ity of tablet 00:00: 04:59 mouth 4 [place] 00 :00 (four) Medical times [place] daily for 7 days. dicyclomine 2023-0 2023- No [id number] 20mg Take 1 [facility] 20 mg 10-29- tablet by ity of tablet 00:00: 04:59 mouth 4 [place] 00 :00 (four) Medical times [place] daily for 7 days. dicyclomine 2023-0 2023- No [id number] 20mg Take 1 [facility] 20 mg 10-29- tablet by ity of tablet 00:00: 04:59 mouth 4 [place] 00 :00 (four) Medical times [place] daily for 7 days. dicyclomine 2022-0 2023- No [id number] 20mg Take 1 [facility] 20 mg 10-29- tablet by ity of tablet 00:00: 04:59 mouth 4 [place] 00 :00 ([facility]) [facility] times [place] daily for 7 days. ketorolac 2022-0 202- No 30mg 30 mg, Unive rs (TORADOL) 10-28 Slow IV ity of injection 01:45: 01:41 Push, [place] 30 mg 00 :00 ONCE, 1 Medical dose, On Branch Wed10/27/22 at 2044, Routine cyclobenzap 2022-2022- No 10mg 10 mg, Uni vers rine 10-28 Oral, ity of (FLEXERIL) 01:45: 01:37 ONCE, 1 [place] as tablet 10 00 :00 dose, On Medica l mg 10/27/22 at 2044, Routine ketorolac 2022-0 2022- No 30mg 30 mg, Unive rs (TORADOL) 10-28 Slow IV ity of injection 01:45: 01:43 Push, [place] 30 mg 00 :00 ONCE, 1 Medical dose, On Branch Wed10/27/22 at 2044, Routine ibuprofen 2022- Yes [id number] 800mg Take 1 U nivers 800 mg 4-11 tablet by ity of tablet 00:00: mouth [place] 00 every 8 Medical (eight) Branch hours as needed for Pain (scale 4-6) or Temp > 38.5 C. cyclobenzap 3-0 Yes [id number] 10mg Take 1 Univers rine 10 mg 4-11 tablet by ity of tablet 00:00: mouth in [place] 00 the Medical morning Branch and 1 tablet at noon and 1 tablet in the evening. ibuprofen 2022-0 Yes [id number] 800mg Take 1 U nivers 800 mg 4-11 tablet by ity of tablet 00:00: mouth [place] 00 every 8 Medical (eight) Branch hours as needed for Pain (scale 4-6) or Temp > 38.5 C. cyclobenzap 2022-0 Yes [id number] 10mg Take 1 Univers rine 10 mg 4-11 tablet by ity of tablet 00:00: mouth in [place] 00 the Medical morning Branch and 1 tablet at noon and 1 tablet in the evening. ibuprofen 2022-0 Yes [id number] 800mg Take 1 U nivers 800 mg 4-11 tablet by ity of tablet 00:00: mouth [place] 00 every 8 Medical (eight) Branch hours as needed for Pain (scale 4-6) or Temp > 38.5 C. cyclobenzap 2022-0 Yes [id number] 10mg Take 1 Univers rine 10 mg 4-11 tablet by ity of tablet 00:00: mouth in [place] 00 the Medical morning Branch and 1 tablet at noon and 1 tablet in the evening. ibuprofen 2022-0 Yes [id number] 800mg Take 1 U nivers 800 mg 4-11 tablet by ity of tablet 00:00: mouth [place] 00 every 8 Medical (eight) Branch hours as needed for Pain (scale 4-6) or Temp > 38.5 C. cyclobenzap 2022-0 Yes [id number] 10mg Take 1 Univers rine 10 mg 4-11 tablet by ity of tablet 00:00: mouth in [place] 00 the Medical morning Branch and 1 tablet at noon and 1 tablet in the evening. ibuprofen 2023-0 Yes [id number] 800mg Take 1 U nivers 800 mg 4-11 tablet by ity of tablet 00:00: mouth [place] 00 every 8 Medical (eight) Branch hours as needed for Pain (scale 4-6) or Temp > 38.5 C. cyclobenzap 2023-0 Yes [id number] 10mg Take 1 Univers rine 10 mg 4-11 tablet by ity of tablet 00:00: mouth in [place] 00 the Medical morning Branch and 1 tablet at noon and 1 tablet in the evening. ibuprofen 3-0 Yes [id number] 800mg Take 1 U nivers 800 mg 4-11 tablet by ity of tablet 00:00: mouth [place] 00 every 8 Medical (eight) Branch hours as needed for Pain (scale 4-6) or Temp > 38.5 C. cyclobenzap 2022-0 Yes [id number] 10mg Take 1 Univers rine 10 mg 4-11 tablet by ity of tablet 00:00: mouth in [place] 00 the Medical morning Branch and 1 tablet at noon and 1 tablet in the evening. ibuprofen 2022-0 Yes [id number] 800mg Take 1 U nivers 800 mg 4-11 tablet by ity of tablet 00:00: mouth [place] 00 every 8 Medical (eight) Branch hours as needed for Pain (scale 4-6) or Temp > 38.5 C. cyclobenzap 2022-0 Yes [id number] 10mg Take 1 Univers rine 10 mg 4-11 tablet by ity of tablet 00:00: mouth in [place] the Medical morning Branch and 1 tablet at noon and 1 tablet in the evening. ibuprofen 2022-0 Yes [id number] 800mg Take 1 U nivers 800 mg 4-11 tablet by ity of tablet 00:00: mouth [place] every 8 Medical (eight) Branch hours as needed for Pain (scale 4-6) or Temp > 38.5 C. cyclobenzap 3-0 Yes [id number] 10mg Take 1 Univers rine 10 mg 4-11 tablet by ity of tablet 00:00: mouth in [place] the Medical morning Branch and 1 tablet at noon and 1 tablet in the evening. ibuprofen 2023-0 Yes [id number] 800mg Take 1 U nivers 800 mg 4-11 tablet by ity of tablet 00:00: mouth [place] 00 every 8 Medical (eight) Branch hours as needed for Pain (scale 4-6) or Temp > 38.5 C. cyclobenzap 2023-0 Yes [id number] 10mg Take 1 Univers rine 10 mg 4-11 tablet by ity of tablet 00:00: mouth in [place] 00 the Medical morning Branch and 1 tablet at noon and 1 tablet in the evening. ibuprofen 2023-0 Yes [id number] 800mg Take 1 U nivers 800 mg 4-11 tablet by ity of tablet 00:00: mouth [place] 00 every 8 Medical (eight) Branch hours as needed for Pain (scale 4-6) or Temp > 38.5 C. cyclobenzap 3-0 Yes [id number] 10mg Take 1 Univers rine 10 mg 4-11 tablet by ity of tablet 00:00: mouth in [place] 00 the Medical morning Branch and 1 tablet at noon and 1 tablet in the evening. ibuprofen 2022-0 Yes [id number] 800mg Take 1 U nivers 800 mg 4-11 tablet by ity of tablet 00:00: mouth [place] 00 every 8 Medical (eight) Branch hours as needed for Pain (scale 4-6) or Temp > 38.5 C. cyclobenzap 2022-0 Yes [id number] 10mg Take 1 Univers rine 10 mg 4-11 tablet by ity of tablet 00:00: mouth in [place] 00 the Medical morning Branch and 1 tablet at noon and 1 tablet in the evening. ibuprofen 2022-0 Yes [id number] 800mg Take 1 U nivers 800 mg 4-11 tablet by ity of tablet 00:00: mouth [place] 00 every 8 Medical (eight) Branch hours as needed for Pain (scale 4-6) or Temp > 38.5 C. cyclobenzap 2022-0 Yes [id number] 10mg Take 1 Univers rine 10 mg 4-11 tablet by ity of tablet 00:00: mouth in [place] 00 the Medical morning Branch and 1 tablet at noon and 1 tablet in the evening. ibuprofen 3-0 Yes [id number] 800mg Take 1 U nivers 800 mg 4-11 tablet by ity of tablet 00:00: mouth [place] 00 every 8 Medical (eight) Branch hours as needed for Pain (scale 4-6) or Temp > 38.5 C. cyclobenzap 2022-0 Yes [id number] 10mg Take 1 Univers rine 10 mg 4-11 tablet by ity of tablet 00:00: mouth in [place] 00 the Medical morning Branch and 1 tablet at noon and 1 tablet in the evening. ibuprofen 3-0 2023- No [id number] 800mg Take 1 Univers 800 mg 4-11 05-01 tablet by ity of tablet 00:00: 00:00 mouth [place] 00 :00 every 8 Medical (eight) Branch hours as needed for Pain (scale 4-6) or Temp > 38.5 C. cyclobenzap 2022-2022- No [id number] 10mg Take 1 Univers rine 10 mg 10-27 tablet by ity of tablet 00:00: 00:00 mouth in [place] 00 :00 the Medical morning Branch and 1 tablet at noon and 1 tablet in the evening. ibuprofen 2022-2022- No [id number] 800mg Take 1 [facility] 800 mg 10-27 tablet by ity of tablet 00:00: 00:00 mouth [place] 00 :00 every 8 Medical (eight) Branch hours as needed for Pain (scale 4-6) or Temp > 38.5 C. cyclobenzap 2022- No [id number] 10mg Take 1 Univers rine 10 mg 10-27 tablet by ity of tablet 00:00: 00:00 mouth in [place] 00 :00 the Medical morning Branch and 1 tablet at noon and 1 tablet in the evening. iopamidol 2022- No [id number] 65mL 65 mL, Univers (ISOVUE 10-20 Intravenou ity o f 370-500 mL) 23:15: 23:15 s, ONCE, 1 [place] injection 00 :00 dose, On Medica l 65 mL [facility] 10/20/22 Branch at 1815, Routine naproxen 2022- No 500mg 500 mg, Univ ers (NAPROSYN) 10-20 Oral, ity of tablet 500 19:30: 21:25 ONCE, 1 [place] as mg 00 :00 dose, On Medical [facility] 10/20/22 Branch at 1625, Routine pantoprazol 2022-0 Yes [id number] 40mg Take 1 Univers e 40 mg EC 3-27 tablet by ity of tablet 00:00: mouth in [place] 00 the morning Branch and 1 tablet in the evening. pantoprazol 202-0 Yes [id number] 40mg Take 1 Univers e 40 mg EC 3-27 tablet by ity of tablet 00:00: mouth in [place] 00 the Medical morning Branch and 1 tablet in the evening. pantoprazol 202-0 Yes [id number] 40mg Take 1 Univers e 40 mg EC 3-27 tablet by ity of tablet 00:00: mouth in [place] 00 the Medical morning Branch and 1 tablet in the evening. pantoprazol 2023-0 Yes [id number] 40mg Take 1 Univers e 40 mg EC 3-27 tablet by ity of tablet 00:00: mouth in [place] 00 the Medical morning Branch and 1 tablet in the evening. pantoprazol 2023-0 Yes [id number] 40mg Take 1 Univers e 40 mg EC 3-27 tablet by ity of tablet 00:00: mouth in [place] 00 the Medical morning Branch and 1 tablet in the evening. pantoprazol 2023-0 Yes [id number] 40mg Take 1 Univers e 40 mg EC 3-27 tablet by ity of tablet 00:00: mouth in [place] 00 the Medical morning Branch and 1 tablet in the evening. pantoprazol 2023-0 Yes [id number] 40mg Take 1 Univers e 40 mg EC 3-27 tablet by ity of tablet 00:00: mouth in [place] [address] the Medical morning Branch and 1 tablet in the evening. pantoprazol 2023-0 Yes [id number] 40mg Take 1 Univers e 40 mg EC 3-27 tablet by ity of tablet 00:00: mouth in [place] [address] the Medical morning Branch and 1 tablet in the evening. pantoprazol 2023-0 Yes [id number] 40mg Take 1 [facility] e 40 mg EC 3-27 tablet by ity of tablet 00:00: mouth in [place] [address] the Medical morning Branch and 1 tablet in the evening. pantoprazol 2023-0 Yes [id number] 40mg Take 1 [facility] e 40 mg EC 3-27 tablet by ity of tablet 00:00: mouth in [place] [address] the Medical morning Branch and 1 tablet in the evening. pantoprazol 2023-0 Yes [id number] 40mg Take 1 [facility] e 40 mg EC 3-27 tablet by ity of tablet 00:00: mouth in [place] [address] the Medical morning Branch and 1 tablet in the evening. pantoprazol 2023-0 Yes [id number] 40mg Take 1 [facility] e 40 mg EC 3-27 tablet by ity of tablet 00:00: mouth in [place] [address] the Medical morning Branch and 1 tablet in the evening. pantoprazol 2023-0 Yes [id number] 40mg Take 1 [facility] e 40 mg EC 3-27 tablet by ity of tablet 00:00: mouth in [address] morning Branch and 1 tablet in the evening. pantoprazol 2022-0 Yes [id number] 40mg Take 1 [facility] e 40 mg EC 3-27 tablet by ity of tablet 00:00: mouth in [place] [address] [facility] morning Branch and 1 tablet in the evening. pantoprazol 2022-0 2022- No [id number] 40mg Take 1 [facility] e 40 mg EC 3-27 04-19 tablet by ity of tablet 00:00: 00:00 mouth in [place] 00 :00 the [facility] Branch and 1 tablet in the evening. pantoprazol 2022-0 2022- No [id number] 40mg Take 1 [facility] e 40 mg EC 3-27 -19 tablet by ity of tablet 00:00: 00:00 mouth in [place] 00 :00 the [facility] Branch and 1 tablet in the evening. pantoprazol 2022-0 2022- No [id number] 40mg Take 1 [facility] e 40 mg EC 3-27 -19 tablet by ity of tablet 00:00: 00:00 mouth in [place] 00 :00 the [facility] and 1 tablet in the evening. iopamidol 2022- No [id number] 100mL 100 mL, Univers (ISOVUE 10-09 Intravenou ity o f 370-500 mL) 06:15: 06:15 s, ONCE, 1 [place] injection 00 :00 dose, On Medica l 100 mL Fri [place] 10/09/22 at 0115, Routine ondansetron 2022- No 4mg 4 mg, Slow [facility] (ZOFRAN 10-09 IV Push, ity of (PF)) 06:00: 06:10 ONCE, 1 [place] injection 4 00 :00 dose, On Medi cherie mg Fri [place] 10/09/22 at 0100, LESLIE morpHINE (4 2022- No 4mg 4 mg, Slow Univers mg/mL) 10-09 IV Push, ity of injection 4 06:00: 06:11 ONCE, 1 [place] mg 00 :00 dose, On Medical [facility] 10/09/22 at 0100, STAT NaCl 0.9% 2022- No 1000mL at 999 Uni vers (NS) bolus 10-09- mL/hr, ity of infusion 04:45: 05:39 1,000 mL, [place] 1,000 mL 00 :00 IV Medical Infusion, Branch ONCE, 1 dose, On [place] 10/08/22 at 2345, LESLIE ibuprofen 2023-0 Yes [id number] 600mg Take 1 [facility] nivers 600 mg 3-24 tablet by ity of tablet 00:00: mouth [place] 00 every 6 Medical (six) Branch hours as needed for Pain (scale 4-6). ibuprofen 2023-0 Yes [id number] 600mg Take 1 [facility] nivers 600 mg 3-24 tablet by ity of tablet 00:00: mouth [place] 00 every 6 Medical (six) Branch hours as needed for Pain (scale 4-6). esomeprazol 3-0 Yes [id number] 20mg Take 20 mg [facility] e 20 mg 3-24 by mouth ity of capsule 00:00: daily [place] 00 before a Medical meal. Branch ibuprofen 2023-0 Yes [id number] 600mg Take 1 [facility] nivers 600 mg 3-24 tablet by ity of tablet 00:00: mouth [place] 00 every 6 Medical (six) Branch hours as needed for Pain (scale 4-6). ibuprofen 2023-0 Yes [id number] 600mg Take 1 [facility] nivers 600 mg 3-24 tablet by ity of tablet 00:00: mouth [place] 00 every 6 Medical (six) Branch hours as needed for Pain (scale 4-6). ibuprofen 2023-0 Yes [id number] 600mg Take 1 [facility] nivers 600 mg 3-24 tablet by ity of tablet 00:00: mouth [place] 00 every 6 Medical (six) Branch hours as needed for Pain (scale 4-6). ibuprofen 2023-0 Yes [id number] 600mg Take 1 [facility] nivers 600 mg 3-24 tablet by ity of tablet 00:00: mouth [place] 00 every 6 Medical (six) Branch hours as needed for Pain (scale 4-6). ibuprofen 2023-0 Yes [id number] 600mg Take 1 [facility] nivers 600 mg 3-24 tablet by ity of tablet 00:00: mouth [place] 00 every 6 Medical (six) Branch hours as needed for Pain (scale 4-6). ibuprofen 2023-0 Yes [id number] 600mg Take 1 [facility] nivers 600 mg 3-24 tablet by ity of tablet 00:00: mouth [place] 00 every 6 Medical (six) Branch hours as needed for Pain (scale 4-6). ibuprofen 2023-0 Yes [id number] 600mg Take 1 [facility] nivers 600 mg 3-24 tablet by ity of tablet 00:00: mouth [place] 00 every 6 Medical (six) Branch hours as needed for Pain (scale 4-6). ibuprofen 2023-0 Yes [id number] 600mg Take 1 U nivers 600 mg 3-24 tablet by ity of tablet 00:00: mouth [place] 00 every 6 Medical (six) Branch hours as needed for Pain (scale 4-6). ibuprofen 2023-0 Yes [id number] 600mg Take 1 U nivers 600 mg 3-24 tablet by ity of tablet 00:00: mouth [place] 00 every 6 Medical (six) Branch hours as needed for Pain (scale 4-6). ibuprofen 2023-0 Yes [id number] 600mg Take 1 U nivers 600 mg 3-24 tablet by ity of tablet 00:00: mouth [place] 00 every 6 Medical (six) Branch hours as needed for Pain (scale 4-6). ibuprofen 2023-0 Yes [id number] 600mg Take 1 U nivers 600 mg 3-24 tablet by ity of tablet 00:00: mouth [place] 00 every 6 Medical (six) Branch hours as needed for Pain (scale 4-6). ibuprofen 2023-0 Yes [id number] 600mg Take 1 U nivers 600 mg 3-24 tablet by ity of tablet 00:00: mouth [place] 00 every 6 Medical (six) Branch hours as needed for Pain (scale 4-6). ibuprofen 2023-0 Yes [id number] 600mg Take 1 [facility] nivers 600 mg 3-24 tablet by ity of tablet 00:00: mouth [place] 00 every 6 Medical (six) Branch hours as needed for Pain (scale 4-6). ibuprofen 2023-0 Yes [id number] 600mg Take 1 U nivers 600 mg 3-24 tablet by ity of tablet 00:00: mouth [place] 00 every 6 Medical (six) Branch hours as needed for Pain (scale 4-6). ibuprofen 2023-0 Yes [id number] 600mg Take 1 [facility] nivers 600 mg 3-24 tablet by ity of tablet 00:00: mouth [place] 00 every 6 Medical (six) Branch hours as needed for Pain (scale 4-6). ibuprofen 2023-0 Yes [id number] 600mg Take 1 U nivers 600 mg 3-24 tablet by ity of tablet 00:00: mouth [place] 00 every 6 Medical (six) Branch hours as needed for Pain (scale 4-6). ibuprofen 2023-0 Yes [id number] 600mg Take 1 U nivers 600 mg 3-24 tablet by ity of tablet 00:00: mouth [place] 00 every 6 Medical (six) Branch hours as needed for Pain (scale 4-6). ibuprofen 2023-0 Yes [id number] 600mg Take 1 [facility] nivers 600 mg 3-24 tablet by ity of tablet 00:00: mouth [place] 00 every 6 Medical (six) Branch hours as needed for Pain (scale 4-6). ibuprofen 2023-0 Yes [id number] 600mg Take 1 U nivers 600 mg 3-24 tablet by ity of tablet 00:00: mouth [place] 00 every 6 Medical (six) Branch hours as needed for Pain (scale 4-6). ibuprofen 2023-0 2023- No [id number] 600mg Take 1 [facility] 600 mg 3-24 05-01 tablet by ity of tablet 00:00: 00:00 mouth [place] 00 :00 every 6 Medical (six) Branch hours as needed for Pain (scale 4-6). ibuprofen 2023-0 2023- No [id number] 600mg Take 1 [facility] 600 mg 3-24 05-01 tablet by ity of tablet 00:00: 00:00 mouth [place] 00 :00 every 6 Medical (six) Branch hours as needed for Pain (scale 4-6). dicyclomine 2023-0 2023- No [id number] 20mg Take 1 [facility] 20 mg 3-24 04-01 tablet by ity of tablet 00:00: 04:59 mouth 4 [place] 00 :00 (four) Medical times Branch daily for 7 days. dicyclomine 2023-0 2023- No [id number] 20mg Take 1 [facility] 20 mg 3-24 04-01 tablet by ity of tablet 00:00: 04:59 mouth 4 [place] 00 :00 (four) Medical times Branch daily for 7 days. dicyclomine 2023-0 2023- No [id number] 20mg Take 1 [facility] 20 mg 3-24 04-01 tablet by ity of tablet 00:00: 04:59 mouth 4 [place] 00 :00 (four) Medical times Branch daily for 7 days. darrynonide- 2023-0 Yes [id number] 2{puff} Inhale 2 Univers glycopyr-fo 3-20 Puffs in ity of rmoterol 00:00: the [place] ([facility] 00 morning Medical AEROSPHERE) and 2 Branch 160-9-4.8 Puffs in mcg/actuati the on HFAA evening. budesonide- 2023-0 Yes [id number] 2{puff} Inhale 2 [facility] glycopyr-fo 3-20 Puffs in ity of rmoterol 00:00: the [place] ([facility] 00 morning Medical [facility]) and 2 Branch 160-9-4.8 Puffs in mcg/actuati the on HFAA evening. budesonide- 2023-0 Yes [id number] 2{puff} Inhale 2 [facility] glycopyr-fo 3-20 Puffs in ity of rmoterol 00:00: the [place] ([facility]) and 2 Branch 160-9-4.8 Puffs in mcg/actuati the on HFAA evening. budesonide- 2023-0 Yes [id number] 2{puff} Inhale 2 [facility] glycopyr-fo 3-20 Puffs in ity of rmoterol 00:00: the [place] ([facility]) and 2 Branch 160-9-4.8 Puffs in mcg/actuati the on HFAA evening. budesonide- 3-0 Yes [id number] 2{puff} Inhale 2 Univers glycopyr-fo 3-20 Puffs in ity of rmoterol 00:00: the [place] ([facility] Medical [facility]) and 2 Branch 160-9-4.8 Puffs in mcg/actuati the on HFAA evening. budesonide- 3-0 Yes [id number] 2{puff} Inhale 2 [facility] glycopyr-fo 3-20 Puffs in ity of rmoterol 00:00: the [place] ([facility] Medical [facility]) and 2 Branch 160-9-4.8 Puffs in mcg/actuati the on HFAA evening. budesonide- 3-0 Yes [id number] 2{puff} Inhale 2 [facility] glycopyr-fo 3-20 Puffs in ity of rmoterol 00:00: the [place] ([facility] 00 morning Medical AEROSPHERE) and 2 Branch 160-9-4.8 Puffs in mcg/actuati the on HFAA evening. budesonide- 2023-0 Yes [id number] 2{puff} Inhale 2 [facility] glycopyr-fo 3-20 Puffs in ity of rmoterol 00:00: the [place] ([facility] 00 morning Medical AEROSPHERE) and 2 Branch 160-9-4.8 Puffs in mcg/actuati the on HFAA evening. budesonide- 3-0 Yes [id number] 2{puff} Inhale 2 [facility] glycopyr-fo 3-20 Puffs in ity of rmoterol 00:00: the [place] ([facility] 00 morning Medical AEROSPHERE) and 2 Branch 160-9-4.8 Puffs in mcg/actuati the on HFAA evening. budesonide- 3-0 Yes [id number] 2{puff} Inhale 2 [facility] glycopyr-fo 3-20 Puffs in ity of rmoterol 00:00: the [place] ([facility] 00 morning Medical AEROSPHERE) and 2 Branch 160-9-4.8 Puffs in mcg/actuati the on HFAA evening. budesonide- 3-0 Yes [id number] 2{puff} Inhale 2 [facility] glycopyr-fo 3-20 Puffs in ity of rmoterol 00:00: the [place] ([facility] 00 morning Medical AEROSPHERE) and 2 Branch 160-9-4.8 Puffs in mcg/actuati the on HFAA evening. budesonide- 2023-0 Yes [id number] 2{puff} Inhale 2 [facility] glycopyr-fo 3-20 Puffs in ity of rmoterol 00:00: the [place] ([facility] 00 morning Medical AEROSPHERE) and 2 Branch 160-9-4.8 Puffs in mcg/actuati the on HFAA evening. budesonide- 2023-0 Yes [id number] 2{puff} Inhale 2 Univers glycopyr-fo 3-20 Puffs in ity of rmoterol 00:00: the [place] ([facility] 00 morning Medical AEROSPHERE) and 2 Branch 160-9-4.8 Puffs in mcg/actuati the on HFAA evening. budesonide- 3-0 Yes [id number] 2{puff} Inhale 2 Univers glycopyr-fo 3-20 Puffs in ity of rmoterol 00:00: the [place] ([facility] 00 [facility]) and 2 Branch 160-9-4.8 Puffs in mcg/actuati the on HFAA evening. budesonide- 2022-0 Yes [id number] 2{puff} Inhale 2 [facility] glycopyr-fo 3-20 Puffs in ity of rmoterol 00:00: the [place] ([facility] 00 morning Medical AEROSPHERE) and 2 Branch 160-9-4.8 Puffs in mcg/actuati the on HFAA evening. budesonide- 2022-0 Yes [id number] 2{puff} Inhale 2 [facility] glycopyr-fo 3-20 Puffs in ity of rmoterol 00:00: the [place] ([facility] 00 [facility]) and 2 Branch 160-9-4.8 Puffs in mcg/actuati the on HFAA evening. budesonide- 2022-0 Yes [id number] 2{puff} Inhale 2 [facility] glycopyr-fo 3-20 Puffs in ity of rmoterol 00:00: the [place] ([facility] 00 [facility] Medical [facility]) and 2 Branch 160-9-4.8 Puffs in mcg/actuati the on HFAA evening. budesonide- 2022-0 Yes [id number] 2{puff} Inhale 2 [facility] glycopyr-fo 3-20 Puffs in ity of rmoterol 00:00: the [place] ([facility] 00 [facility] Medical [facility]) and 2 Branch 160-9-4.8 Puffs in mcg/actuati the on HFAA evening. budesonide- 3-0 Yes [id number] 2{puff} Inhale 2 [facility] glycopyr-fo 3-20 Puffs in ity of rmoterol 00:00: the [place] ([facility] 00 [facility] Medical [facility]) and 2 Branch 160-9-4.8 Puffs in mcg/actuati the on HFAA evening. budesonide- 3-0 Yes [id number] 2{puff} Inhale 2 [facility] glycopyr-fo 3-20 Puffs in ity of rmoterol 00:00: the [place] ([facility] 00 [facility] Medical AEROSPHERE) and 2 Branch 160-9-4.8 Puffs in mcg/actuati the on HFAA evening. budesonide- 3-0 Yes [id number] 2{puff} Inhale 2 Univers glycopyr-fo 3-20 Puffs in ity of rmoterol 00:00: the [place] ([facility] Medical AEROSPHERE) and 2 Branch 160-9-4.8 Puffs in mcg/actuati the on HFAA evening. budesonide- 3-0 Yes [id number] 2{puff} Inhale 2 [facility] glycopyr-fo 3-20 Puffs in ity of rmoterol 00:00: the [place] ([facility]) and 2 Branch 160-9-4.8 Puffs in mcg/actuati the on HFAA evening. budesonide- 2022-0 Yes [id number] 2{puff} Inhale 2 [facility] glycopyr-fo 3-20 Puffs in ity of rmoterol 00:00: the [place] ([facility]) and 2 Branch 160-9-4.8 Puffs in mcg/actuati the on HFAA evening. budesonide- 3-0 Yes [id number] 2{puff} Inhale 2 [facility] glycopyr-fo 3-20 Puffs in ity of rmoterol 00:00: the [place] ([facility]) and 2 Branch 160-9-4.8 Puffs in mcg/actuati the on HFAA evening. budesonide- 3-0 Yes [id number] 2{puff} Inhale 2 Univers glycopyr-fo 3-20 Puffs in ity of rmoterol 00:00: the [place] ([facility]) and 2 Branch 160-9-4.8 Puffs in mcg/actuati the on HFAA evening. budesonide- 3-0 Yes [id number] 2{puff} Inhale 2 Univers glycopyr-fo 3-20 Puffs in ity of rmoterol 00:00: the [place] ([facility] 00 morning Medical AEROSPHERE) and 2 Branch 160-9-4.8 Puffs in mcg/actuati the on HFAA evening. budesonide- 3-0 Yes [id number] 2{puff} Inhale 2 Univers glycopyr-fo 3-20 Puffs in ity of rmoterol 00:00: the [place] ([facility] 00 morning Medical AEROSPHERE) and 2 Branch 160-9-4.8 Puffs in mcg/actuati the on HFAA evening. budesonide- 3-0 Yes [id number] 2{puff} Inhale 2 Univers glycopyr-fo 3-20 Puffs in ity of rmoterol 00:00: the [place] ([facility] 00 morning Medical AEROSPHERE) and 2 Branch 160-9-4.8 Puffs in mcg/actuati the on HFAA evening. budesonide- 3-0 Yes [id number] 2{puff} Inhale 2 Univers glycopyr-fo 3-20 Puffs in ity of rmoterol 00:00: the [place] ([facility] 00 morning Medical AEROSPHERE) and 2 Branch 160-9-4.8 Puffs in mcg/actuati the on HFAA evening. budesonide- 3-0 Yes [id number] 2{puff} Inhale 2 Univers glycopyr-fo 3-20 Puffs in ity of rmoterol 00:00: the [place] ([facility] 00 morning Medical AEROSPHERE) and 2 Branch 160-9-4.8 Puffs in mcg/actuati the on HFAA evening. budesonide- 3-0 Yes [id number] 2{puff} Inhale 2 [facility] glycopyr-fo 3-20 Puffs in ity of rmoterol 00:00: the [place] ([facility] 00 morning Medical AEROSPHERE) and 2 Branch 160-9-4.8 Puffs in mcg/actuati the on HFAA evening. budesonide- 3-0 Yes [id number] 2{puff} Inhale 2 Univers glycopyr-fo 3-20 Puffs in ity of rmoterol 00:00: the [place] ([facility] 00 morning Medical AEROSPHERE) and 2 Branch 160-9-4.8 Puffs in mcg/actuati the on HFAA evening. budesonide- 3-0 Yes [id number] 2{puff} Inhale 2 Univers glycopyr-fo 3-20 Puffs in ity of rmoterol 00:00: the [place] ([facility] 00 [facility]) and 2 Branch 160-9-4.8 Puffs in mcg/actuati the on HFAA evening. budesonide- 3-0 Yes [id number] 2{puff} Inhale 2 Univers glycopyr-fo 3-20 Puffs in ity of rmoterol 00:00: the [place] ([facility] Medical AEROSPHERE) and 2 Branch 160-9-4.8 Puffs in mcg/actuati the on HFAA evening. budesonide- 3-0 Yes [id number] 2{puff} Inhale 2 [facility] glycopyr-fo 3-20 Puffs in ity of rmoterol 00:00: the [place] ([facility]) and 2 Branch 160-9-4.8 Puffs in mcg/actuati the on HFAA evening. budesonide- 3-0 Yes [id number] 2{puff} Inhale 2 [facility] glycopyr-fo 3-20 Puffs in ity of rmoterol 00:00: the [place] ([facility]) and 2 Branch 160-9-4.8 Puffs in mcg/actuati the on HFAA evening. budesonide- 3-0 Yes [id number] 2{puff} Inhale 2 Univers glycopyr-fo 3-20 Puffs in ity of rmoterol 00:00: the [place] ([facility]) and 2 Branch 160-9-4.8 Puffs in mcg/actuati the on HFAA evening. budesonide- 2023-0 Yes [id number] 2{puff} Inhale 2 Univers glycopyr-fo 3-20 Puffs in ity of rmoterol 00:00: the [place] ([facility]) and 2 Branch 160-9-4.8 Puffs in mcg/actuati the on HFAA evening. budesonide- 3-0 Yes [id number] 2{puff} Inhale 2 Univers glycopyr-fo 3-20 Puffs in ity of rmoterol 00:00: the [place] ([facility] 00 morning Medical AEROSPHERE) and 2 Branch 160-9-4.8 Puffs in mcg/actuati the on HFAA evening. budesonide- 3-0 Yes [id number] 2{puff} Inhale 2 Univers glycopyr-fo 3-20 Puffs in ity of rmoterol 00:00: the [place] ([facility] 00 morning Medical AEROSPHERE) and 2 Branch 160-9-4.8 Puffs in mcg/actuati the on HFAA evening. budesonide- 3-0 Yes [id number] 2{puff} Inhale 2 Univers glycopyr-fo 3-20 Puffs in ity of rmoterol 00:00: the [place] ([facility] 00 morning Medical AEROSPHERE) and 2 Branch 160-9-4.8 Puffs in mcg/actuati the on HFAA evening. budesonide- 3-0 Yes [id number] 2{puff} Inhale 2 Univers glycopyr-fo 3-20 Puffs in ity of rmoterol 00:00: the [place] ([facility] 00 morning Medical AEROSPHERE) and 2 Branch 160-9-4.8 Puffs in mcg/actuati the on HFAA evening. budesonide- 3-0 Yes [id number] 2{puff} Inhale 2 Univers glycopyr-fo 3-20 Puffs in ity of rmoterol 00:00: the [place] ([facility] 00 morning Medical AEROSPHERE) and 2 Branch 160-9-4.8 Puffs in mcg/actuati the on HFAA evening. budesonide- 3-0 Yes [id number] 2{puff} Inhale 2 Univers glycopyr-fo 3-20 Puffs in ity of rmoterol 00:00: the [place] ([facility] 00 morning Medical AEROSPHERE) and 2 Branch 160-9-4.8 Puffs in mcg/actuati the on HFAA evening. budesonide- 3-0 Yes [id number] 2{puff} Inhale 2 Univers glycopyr-fo 3-20 Puffs in ity of rmoterol 00:00: the [place] ([facility] 00 morning Medical AEROSPHERE) and 2 Branch 160-9-4.8 Puffs in mcg/actuati the on HFAA evening. budesonide- 3-0 Yes [id number] 2{puff} Inhale 2 Univers glycopyr-fo 3-20 Puffs in ity of rmoterol 00:00: the [place] ([facility] 00 [facility] Medical AEROSPHERE) and 2 Branch 160-9-4.8 Puffs in mcg/actuati the on HFAA evening. budesonide- 3-0 Yes [id number] 2{puff} Inhale 2 Univers glycopyr-fo 3-20 Puffs in ity of rmoterol 00:00: the [place] ([facility] 00 morning Medical AEROSPHERE) and 2 Branch 160-9-4.8 Puffs in mcg/actuati the on HFAA evening. budesonide- 3-0 Yes [id number] 2{puff} Inhale 2 Univers glycopyr-fo 3-20 Puffs in ity of rmoterol 00:00: the [place] ([facility]) and 2 Branch 160-9-4.8 Puffs in mcg/actuati the on HFAA evening. budesonide- 3-0 Yes [id number] 2{puff} Inhale 2 Univers glycopyr-fo 3-20 Puffs in ity of rmoterol 00:00: the [place] ([facility]) and 2 Branch 160-9-4.8 Puffs in mcg/actuati the on HFAA evening. budesonide- 3-0 Yes [id number] 2{puff} Inhale 2 Univers glycopyr-fo 3-20 Puffs in ity of rmoterol 00:00: the [place] ([facility] 00 [facility] Medical [facility]) and 2 Branch 160-9-4.8 Puffs in mcg/actuati the on HFAA evening. budesonide- 3-0 Yes [id number] 2{puff} Inhale 2 Univers glycopyr-fo 3-20 Puffs in ity of rmoterol 00:00: the [place] ([facility] 00 [facility] Medical [facility]) and 2 Branch 160-9-4.8 Puffs in mcg/actuati the on HFAA evening. budesonide- 2023-0 Yes [id number] 2{puff} Inhale 2 Univers glycopyr-fo 3-20 Puffs in ity of rmoterol 00:00: the [place] ([facility] 00 morning Medical AEROSPHERE) and 2 Branch 160-9-4.8 Puffs in mcg/actuati the on HFAA evening. budesonide- 2023-0 Yes [id number] 2{puff} Inhale 2 Univers glycopyr-fo 3-20 Puffs in ity of rmoterol 00:00: the [place] ([facility] 00 morning Medical AEROSPHERE) and 2 Branch 160-9-4.8 Puffs in mcg/actuati the on HFAA evening. budesonide- 2023-0 Yes [id number] 2{puff} Inhale 2 Univers glycopyr-fo 3-20 Puffs in ity of rmoterol 00:00: the [place] ([facility] morning Medical AEROSPHERE) and 2 Branch 160-9-4.8 Puffs in mcg/actuati the on HFAA evening. budesonide- 3-0 Yes [id number] 2{puff} Inhale 2 Univers glycopyr-fo 3-20 Puffs in ity of rmoterol 00:00: the [place] ([facility] 00 morning Medical AEROSPHERE) and 2 Branch 160-9-4.8 Puffs in mcg/actuati the on HFAA evening. budesonide- 3-0 Yes [id number] 2{puff} Inhale 2 Univers glycopyr-fo 3-20 Puffs in ity of rmoterol 00:00: the [place] ([facility] morning Medical AEROSPHERE) and 2 Branch 160-9-4.8 Puffs in mcg/actuati the on HFAA evening. budesonide- 2023-0 Yes [id number] 2{puff} Inhale 2 Univers glycopyr-fo 3-20 Puffs in ity of rmoterol 00:00: the [place] ([facility] morning Medical AEROSPHERE) and 2 Branch 160-9-4.8 Puffs in mcg/actuati the on HFAA evening. budesonide- 2023-0 Yes [id number] 2{puff} Inhale 2 Univers glycopyr-fo 3-20 Puffs in ity of rmoterol 00:00: the [place] ([facility] 00 morning Medical AEROSPHERE) and 2 Branch 160-9-4.8 Puffs in mcg/actuati the on HFAA evening. budesonide- 2023-0 Yes [id number] 2{puff} Inhale 2 Univers glycopyr-fo 3-20 Puffs in ity of rmoterol 00:00: the [place] ([facility] 00 morning Medical AEROSPHERE) and 2 Branch 160-9-4.8 Puffs in mcg/actuati the on HFAA evening. budesonide- 3-0 Yes [id number] 2{puff} Inhale 2 Univers glycopyr-fo 3-20 Puffs in ity of rmoterol 00:00: the [place] ([facility] 00 morning Medical AEROSPHERE) and 2 Branch 160-9-4.8 Puffs in mcg/actuati the on HFAA evening. budesonide- 3-0 Yes [id number] 2{puff} Inhale 2 Univers glycopyr-fo 3-20 Puffs in ity of rmoterol 00:00: the [place] ([facility] AEROSPHERE) and 2 Branch 160-9-4.8 Puffs in mcg/actuati the on HFAA evening. budesonide- 3-0 Yes [id number] 2{puff} Inhale 2 Univers glycopyr-fo 3-20 Puffs in ity of rmoterol 00:00: the [place] ([facility] morning Medical AEROSPHERE) and 2 Branch 160-9-4.8 Puffs in mcg/actuati the on HFAA evening. budesonide- 3-0 Yes [id number] 2{puff} Inhale 2 Univers glycopyr-fo 3-20 Puffs in ity of rmoterol 00:00: the [place] ([facility] 00 morning Medical AEROSPHERE) and 2 Branch 160-9-4.8 Puffs in mcg/actuati the on HFAA evening. budesonide- 2023-0 Yes [id number] 2{puff} Inhale 2 Univers glycopyr-fo 3-20 Puffs in ity of rmoterol 00:00: the [place] ([facility] 00 [facility] Medical AEROSPHERE) and 2 Branch 160-9-4.8 Puffs in mcg/actuati the on HFAA evening. budesonide- 2023-0 Yes [id number] 2{puff} Inhale 2 Univers glycopyr-fo 3-20 Puffs in ity of rmoterol 00:00: the [place] ([facility] 00 morning Medical AEROSPHERE) and 2 Branch 160-9-4.8 Puffs in mcg/actuati the on HFAA evening. budesonide- 2023-0 Yes [id number] 2{puff} Inhale 2 Univers glycopyr-fo 3-20 Puffs in ity of rmoterol 00:00: the [place] ([facility] 00 morning Medical AEROSPHERE) and 2 Branch 160-9-4.8 Puffs in mcg/actuati the on HFAA evening. budesonide- 2023-0 Yes [id number] 2{puff} Inhale 2 Univers glycopyr-fo 3-20 Puffs in ity of rmoterol 00:00: the [place] ([facility] Medical [facility]) and 2 Branch 160-9-4.8 Puffs in mcg/actuati the on HFAA evening. budesonide- 2023-0 Yes [id number] 2{puff} Inhale 2 [facility] glycopyr-fo 3-20 Puffs in ity of rmoterol 00:00: the [place] ([facility] AEROSPHERE) and 2 Branch 160-9-4.8 Puffs in mcg/actuati the on HFAA evening. budesonide- 3-0 Yes [id number] 2{puff} Inhale 2 [facility] glycopyr-fo 3-20 Puffs in ity of rmoterol 00:00: the [place] ([facility]) and 2 Branch 160-9-4.8 Puffs in mcg/actuati the on HFAA evening. budesonide- 2023-0 Yes [id number] 2{puff} Inhale 2 [facility] glycopyr-fo 3-20 Puffs in ity of rmoterol 00:00: the [place] ([facility] AEROSPHERE) and 2 Branch 160-9-4.8 Puffs in mcg/actuati the on HFAA evening. budesonide- 2023-0 Yes [id number] 2{puff} Inhale 2 [facility] glycopyr-fo 3-20 Puffs in ity of rmoterol 00:00: the [place] ([facility] 00 morning Medical AEROSPHERE) and 2 Branch 160-9-4.8 Puffs in mcg/actuati the on HFAA evening. budesonide- 2023-0 Yes [id number] 2{puff} Inhale 2 [facility] glycopyr-fo 3-20 Puffs in ity of rmoterol 00:00: the [place] ([facility] 00 morning Medical AEROSPHERE) and 2 Branch 160-9-4.8 Puffs in mcg/actuati the on HFAA evening. budesonide- 2023-0 Yes [id number] 2{puff} Inhale 2 [facility] glycopyr-fo 3-20 Puffs in ity of rmoterol 00:00: the [place] ([facility] 00 morning Medical AEROSPHERE) and 2 Branch 160-9-4.8 Puffs in mcg/actuati the on HFAA evening. budesonide- 3-0 Yes [id number] 2{puff} Inhale 2 [facility] glycopyr-fo 3-20 Puffs in ity of rmoterol 00:00: the [place] ([facility] 00 morning Medical AEROSPHERE) and 2 Branch 160-9-4.8 Puffs in mcg/actuati the on HFAA evening. budesonide- 3-0 Yes [id number] 2{puff} Inhale 2 [facility] glycopyr-fo 3-20 Puffs in ity of rmoterol 00:00: the [place] ([facility] 00 morning Medical AEROSPHERE) and 2 Branch 160-9-4.8 Puffs in mcg/actuati the on HFAA evening. budesonide- 3-0 Yes [id number] 2{puff} Inhale 2 [facility] glycopyr-fo 3-20 Puffs in ity of rmoterol 00:00: the [place] ([facility] 00 morning Medical AEROSPHERE) and 2 Branch 160-9-4.8 Puffs in mcg/actuati the on HFAA evening. budesonide- 2023-0 Yes [id number] 2{puff} Inhale 2 [facility] glycopyr-fo 3-20 Puffs in ity of rmoterol 00:00: the [place] ([facility] 00 morning Medical AEROSPHERE) and 2 Branch 160-9-4.8 Puffs in mcg/actuati the on HFAA evening. budesonide- 3-0 Yes [id number] 2{puff} Inhale 2 [facility] glycopyr-fo 3-20 Puffs in ity of rmoterol 00:00: the [place] ([facility] 00 [facility]) and 2 Branch 160-9-4.8 Puffs in mcg/actuati the on HFAA evening. budesonide- 3-0 Yes [id number] 2{puff} Inhale 2 [facility] glycopyr-fo 3-20 Puffs in ity of rmoterol 00:00: the [place] ([facility]) and 2 Branch 160-9-4.8 Puffs in mcg/actuati the on HFAA evening. budesonide- 3-0 Yes [id number] 2{puff} Inhale 2 [facility] glycopyr-fo 3-20 Puffs in ity of rmoterol 00:00: the [place] ([facility]) and 2 Branch 160-9-4.8 Puffs in mcg/actuati the on HFAA evening. budesonide- 3-0 Yes [id number] 2{puff} Inhale 2 [facility] glycopyr-fo 3-20 Puffs in ity of rmoterol 00:00: the [place] ([facility]) and 2 Branch 160-9-4.8 Puffs in mcg/actuati the on HFAA evening. budesonide- 3-0 Yes [id number] 2{puff} Inhale 2 [facility] glycopyr-fo 3-20 Puffs in ity of rmoterol 00:00: the [place] ([facility]) and 2 Branch 160-9-4.8 Puffs in mcg/actuati the on HFAA evening. budesonide- 3-0 Yes [id number] 2{puff} Inhale 2 [facility] glycopyr-fo 3-20 Puffs in ity of rmoterol 00:00: the [place] ([facility]) and 2 Branch 160-9-4.8 Puffs in mcg/actuati the on HFAA evening. budesonide- 3-0 Yes [id number] 2{puff} Inhale 2 [facility] glycopyr-fo 3-20 Puffs in ity of rmoterol 00:00: the [place] ([facility] 00 morning Medical AEROSPHERE) and 2 Branch 160-9-4.8 Puffs in mcg/actuati the on HFAA evening. budesonide- 2023-0 Yes [id number] 2{puff} Inhale 2 [facility] glycopyr-fo 3-20 Puffs in ity of rmoterol 00:00: the [place] ([facility] 00 morning Medical AEROSPHERE) and 2 Branch 160-9-4.8 Puffs in mcg/actuati the on HFAA evening. budesonide- 3-0 Yes [id number] 2{puff} Inhale 2 [facility] glycopyr-fo 3-20 Puffs in ity of rmoterol 00:00: the [place] ([facility] 00 morning Medical AEROSPHERE) and 2 Branch 160-9-4.8 Puffs in mcg/actuati the on HFAA evening. budesonide- 3-0 Yes [id number] 2{puff} Inhale 2 [facility] glycopyr-fo 3-20 Puffs in ity of rmoterol 00:00: the [place] ([facility] 00 morning Medical AEROSPHERE) and 2 Branch 160-9-4.8 Puffs in mcg/actuati the on HFAA evening. budesonide- 3-0 Yes [id number] 2{puff} Inhale 2 [facility] glycopyr-fo 3-20 Puffs in ity of rmoterol 00:00: the [place] ([facility] 00 morning Medical AEROSPHERE) and 2 Branch 160-9-4.8 Puffs in mcg/actuati the on HFAA evening. budesonide- 3-0 Yes [id number] 2{puff} Inhale 2 [facility] glycopyr-fo 3-20 Puffs in ity of rmoterol 00:00: the [place] ([facility] 00 morning Medical AEROSPHERE) and 2 Branch 160-9-4.8 Puffs in mcg/actuati the on HFAA evening. budesonide- 3-0 Yes [id number] 2{puff} Inhale 2 [facility] glycopyr-fo 3-20 Puffs in ity of rmoterol 00:00: the [place] ([facility] 00 morning Medical AEROSPHERE) and 2 Branch 160-9-4.8 Puffs in mcg/actuati the on HFAA evening. budesonide- 2023-0 Yes [id number] 2{puff} Inhale 2 [facility] glycopyr-fo 3-20 Puffs in ity of rmoterol 00:00: the [place] ([facility] 00 morning Medical AEROSPHERE) and 2 Branch 160-9-4.8 Puffs in mcg/actuati the on HFAA evening. budesonide- 2023-0 Yes [id number] 2{puff} Inhale 2 [facility] glycopyr-fo 3-20 Puffs in ity of rmoterol 00:00: the [place] ([facility] 00 morning Medical AEROSPHERE) and 2 Branch 160-9-4.8 Puffs in mcg/actuati the on HFAA evening. budesonide- 3-0 Yes [id number] 2{puff} Inhale 2 [facility] glycopyr-fo 3-20 Puffs in ity of rmoterol 00:00: the [place] ([facility] AEROSPHERE) and 2 Branch 160-9-4.8 Puffs in mcg/actuati the on HFAA evening. budesonide- 3-0 Yes [id number] 2{puff} Inhale 2 [facility] glycopyr-fo 3-20 Puffs in ity of rmoterol 00:00: the [place] ([facility] 00 [facility] Medical AEROSPHERE) and 2 Branch 160-9-4.8 Puffs in mcg/actuati the on HFAA evening. budesonide- 3-0 Yes [id number] 2{puff} Inhale 2 [facility] glycopyr-fo 3-20 Puffs in ity of rmoterol 00:00: the [place] ([facility] 00 [facility] Medical AEROSPHERE) and 2 Branch 160-9-4.8 Puffs in mcg/actuati the on HFAA evening. budesonide- 2023-0 Yes [id number] 2{puff} Inhale 2 [facility] glycopyr-fo 3-20 Puffs in ity of rmoterol 00:00: the [place] ([facility] 00 [facility] Medical AEROSPHERE) and 2 Branch 160-9-4.8 Puffs in mcg/actuati the on HFAA evening. budesonide- 2023-0 Yes [id number] 2{puff} Inhale 2 [facility] glycopyr-fo 3-20 Puffs in ity of rmoterol 00:00: the [place] ([facility] 00 [facility] Medical AEROSPHERE) and 2 Branch 160-9-4.8 Puffs in mcg/actuati the on HFAA evening. budesonide- 3-0 Yes [id number] 2{puff} Inhale 2 [facility] glycopyr-fo 3-20 Puffs in ity of rmoterol 00:00: the [place] ([facility] AEROSPHERE) and 2 Branch 160-9-4.8 Puffs in mcg/actuati the on HFAA evening. budesonide- 3-0 Yes [id number] 2{puff} Inhale 2 [facility] glycopyr-fo 3-20 Puffs in ity of rmoterol 00:00: the [place] ([facility]) and 2 Branch 160-9-4.8 Puffs in mcg/actuati the on HFAA evening. budesonide- 2022-0 Yes [id number] 2{puff} Inhale 2 [facility] glycopyr-fo 3-20 Puffs in ity of rmoterol 00:00: the [place] ([facility]) and 2 Branch 160-9-4.8 Puffs in mcg/actuati the on HFAA evening. budesonide- 3-0 Yes [id number] 2{puff} Inhale 2 [facility] glycopyr-fo 3-20 Puffs in ity of rmoterol 00:00: the [place] ([facility]) and 2 Branch 160-9-4.8 Puffs in mcg/actuati the on HFAA evening. budesonide- 3-0 Yes [id number] 2{puff} Inhale 2 Univers glycopyr-fo 3-20 Puffs in ity of rmoterol 00:00: the [place] ([facility]) and 2 Branch 160-9-4.8 Puffs in mcg/actuati the on HFAA evening. budesonide- 3-0 Yes [id number] 2{puff} Inhale 2 [facility] glycopyr-fo 3-20 Puffs in ity of rmoterol 00:00: the [place] ([facility] 00 morning Medical AEROSPHERE) and 2 Branch 160-9-4.8 Puffs in mcg/actuati the on HFAA evening. budesonide- 3-0 Yes [id number] 2{puff} Inhale 2 [facility] glycopyr-fo 3-20 Puffs in ity of rmoterol 00:00: the [place] ([facility] 00 morning Medical AEROSPHERE) and 2 Branch 160-9-4.8 Puffs in mcg/actuati the on HFAA evening. budesonide- 3-0 Yes [id number] 2{puff} Inhale 2 [facility] glycopyr-fo 3-20 Puffs in ity of rmoterol 00:00: the [place] ([facility] 00 morning Medical AEROSPHERE) and 2 Branch 160-9-4.8 Puffs in mcg/actuati the on HFAA evening. budesonide- 3-0 Yes [id number] 2{puff} Inhale 2 Univers glycopyr-fo 3-20 Puffs in ity of rmoterol 00:00: the [place] ([facility] 00 morning Medical AEROSPHERE) and 2 Branch 160-9-4.8 Puffs in mcg/actuati the on HFAA evening. budesonide- 3-0 Yes [id number] 2{puff} Inhale 2 Univers glycopyr-fo 3-20 Puffs in ity of rmoterol 00:00: the [place] ([facility] 00 morning Medical AEROSPHERE) and 2 Branch 160-9-4.8 Puffs in mcg/actuati the on HFAA evening. budesonide- 3-0 Yes [id number] 2{puff} Inhale 2 Univers glycopyr-fo 3-20 Puffs in ity of rmoterol 00:00: the [place] ([facility] 00 morning Medical AEROSPHERE) and 2 Branch 160-9-4.8 Puffs in mcg/actuati the on HFAA evening. budesonide- 3-0 Yes [id number] 2{puff} Inhale 2 Univers glycopyr-fo 3-20 Puffs in ity of rmoterol 00:00: the [place] ([facility] 00 morning Medical AEROSPHERE) and 2 Branch 160-9-4.8 Puffs in mcg/actuati the on HFAA evening. budesonide- 2023-0 Yes [id number] 2{puff} Inhale 2 Univers glycopyr-fo 3-20 Puffs in ity of rmoterol 00:00: the [place] ([facility] 00 [facility] Medical AEROSPHERE) and 2 Branch 160-9-4.8 Puffs in mcg/actuati the on HFAA evening. budesonide- 3-0 Yes [id number] 2{puff} Inhale 2 [facility] glycopyr-fo 3-20 Puffs in ity of rmoterol 00:00: the [place] ([facility] 00 [facility] Medical AEROSPHERE) and 2 Branch 160-9-4.8 Puffs in mcg/actuati the on HFAA evening. budesonide- 3-0 Yes [id number] 2{puff} Inhale 2 Univers glycopyr-fo 3-20 Puffs in ity of rmoterol 00:00: the [place] ([facility] 00 [facility]) and 2 Branch 160-9-4.8 Puffs in mcg/actuati the on HFAA evening. budesonide- 3-0 Yes [id number] 2{puff} Inhale 2 Univers glycopyr-fo 3-20 Puffs in ity of rmoterol 00:00: the [place] ([facility]) and 2 Branch 160-9-4.8 Puffs in mcg/actuati the on HFAA evening. budesonide- 3-0 Yes [id number] 2{puff} Inhale 2 Univers glycopyr-fo 3-20 Puffs in ity of rmoterol 00:00: the [place] ([facility] 00 [facility]) and 2 Branch 160-9-4.8 Puffs in mcg/actuati the on HFAA evening. budesonide- 3-0 Yes [id number] 2{puff} Inhale 2 Univers glycopyr-fo 3-20 Puffs in ity of rmoterol 00:00: the [place] ([facility] 00 [facility]) and 2 Branch 160-9-4.8 Puffs in mcg/actuati the on HFAA evening. budesonide- 2023-0 Yes [id number] 2{puff} Inhale 2 Univers glycopyr-fo 3-20 Puffs in ity of rmoterol 00:00: the [place] ([facility] 00 morning Medical AEROSPHERE) and 2 Branch 160-9-4.8 Puffs in mcg/actuati the on HFAA evening. budesonide- 2023-0 Yes [id number] 2{puff} Inhale 2 Univers glycopyr-fo 3-20 Puffs in ity of rmoterol 00:00: the [place] ([facility] 00 morning Medical AEROSPHERE) and 2 Branch 160-9-4.8 Puffs in mcg/actuati the on HFAA evening. budesonide- 3-0 Yes [id number] 2{puff} Inhale 2 Univers glycopyr-fo 3-20 Puffs in ity of rmoterol 00:00: the [place] ([facility] 00 morning Medical AEROSPHERE) and 2 Branch 160-9-4.8 Puffs in mcg/actuati the on HFAA evening. budesonide- 3-0 Yes [id number] 2{puff} Inhale 2 Univers glycopyr-fo 3-20 Puffs in ity of rmoterol 00:00: the [place] ([facility] 00 morning Medical AEROSPHERE) and 2 Branch 160-9-4.8 Puffs in mcg/actuati the on HFAA evening. budesonide- 3-0 Yes [id number] 2{puff} Inhale 2 Univers glycopyr-fo 3-20 Puffs in ity of rmoterol 00:00: the [place] ([facility] 00 morning Medical AEROSPHERE) and 2 Branch 160-9-4.8 Puffs in mcg/actuati the on HFAA evening. budesonide- 2023-0 Yes [id number] 2{puff} Inhale 2 Univers glycopyr-fo 3-20 Puffs in ity of rmoterol 00:00: the [place] ([facility] 00 morning Medical AEROSPHERE) and 2 Branch 160-9-4.8 Puffs in mcg/actuati the on HFAA evening. budesonide- 2023-0 Yes [id number] 2{puff} Inhale 2 Univers glycopyr-fo 3-20 Puffs in ity of rmoterol 00:00: the [place] ([facility] 00 morning Medical AEROSPHERE) and 2 Branch 160-9-4.8 Puffs in mcg/actuati the on HFAA evening. budesonide- 2023-0 Yes [id number] 2{puff} Inhale 2 Univers glycopyr-fo 3-20 Puffs in ity of rmoterol 00:00: the [place] ([facility] 00 [facility] Medical AEROSPHERE) and 2 Branch 160-9-4.8 Puffs in mcg/actuati the on HFAA evening. budesonide- 2023-0 Yes [id number] 2{puff} Inhale 2 Univers glycopyr-fo 3-20 Puffs in ity of rmoterol 00:00: the [place] ([facility] 00 morning Medical AEROSPHERE) and 2 Branch 160-9-4.8 Puffs in mcg/actuati the on HFAA evening. budesonide- 2023-0 Yes [id number] 2{puff} Inhale 2 Univers glycopyr-fo 3-20 Puffs in ity of rmoterol 00:00: the [place] ([facility] 00 [facility]) and 2 Branch 160-9-4.8 Puffs in mcg/actuati the on HFAA evening. budesonide- 2023-0 Yes [id number] 2{puff} Inhale 2 Univers glycopyr-fo 3-20 Puffs in ity of rmoterol 00:00: the [place] ([facility] 00 [facility] Medical AEROSPHERE) and 2 Branch 160-9-4.8 Puffs in mcg/actuati the on HFAA evening. budesonide- 2023-0 Yes [id number] 2{puff} Inhale 2 Univers glycopyr-fo 3-20 Puffs in ity of rmoterol 00:00: the [place] ([facility] 00 [facility] Medical AEROSPHERE) and 2 Branch 160-9-4.8 Puffs in mcg/actuati the on HFAA evening. budesonide- 2023-0 Yes [id number] 2{puff} Inhale 2 Univers glycopyr-fo 3-20 Puffs in ity of rmoterol 00:00: the [place] ([facility] 00 [facility]) and 2 Branch 160-9-4.8 Puffs in mcg/actuati the on HFAA evening. budesonide- 2023-0 Yes [id number] 2{puff} Inhale 2 Univers glycopyr-fo 3-20 Puffs in ity of rmoterol 00:00: the [place] ([facility] AEROSPHERE) and 2 Branch 160-9-4.8 Puffs in mcg/actuati the on HFAA evening. budesonide- 2023-0 Yes [id number] 2{puff} Inhale 2 Univers glycopyr-fo 3-20 Puffs in ity of rmoterol 00:00: the [place] ([facility] AEROSPHERE) and 2 Branch 160-9-4.8 Puffs in mcg/actuati the on HFAA evening. budesonide- 3-0 Yes [id number] 2{puff} Inhale 2 Univers glycopyr-fo 3-20 Puffs in ity of rmoterol 00:00: the [place] ([facility]) and 2 Branch 160-9-4.8 Puffs in mcg/actuati the on HFAA evening. budesonide- 3-0 Yes [id number] 2{puff} Inhale 2 Univers glycopyr-fo 3-20 Puffs in ity of rmoterol 00:00: the [place] ([facility]) and 2 Branch 160-9-4.8 Puffs in mcg/actuati the on HFAA evening. budesonide- 3-0 Yes [id number] 2{puff} Inhale 2 Univers glycopyr-fo 3-20 Puffs in ity of rmoterol 00:00: the [place] ([facility]) and 2 Branch 160-9-4.8 Puffs in mcg/actuati the on HFAA evening. budesonide- 3-0 Yes [id number] 2{puff} Inhale 2 Univers glycopyr-fo 3-20 Puffs in ity of rmoterol 00:00: the [place] ([facility]) and 2 Branch 160-9-4.8 Puffs in mcg/actuati the on HFAA evening. budesonide- 3-0 Yes [id number] 2{puff} Inhale 2 Univers glycopyr-fo 3-20 Puffs in ity of rmoterol 00:00: the [place] ([facility] 00 morning Medical AEROSPHERE) and 2 Branch 160-9-4.8 Puffs in mcg/actuati the on HFAA evening. budesonide- 2023-0 Yes [id number] 2{puff} Inhale 2 Univers glycopyr-fo 3-20 Puffs in ity of rmoterol 00:00: the [place] ([facility] 00 morning Medical AEROSPHERE) and 2 Branch 160-9-4.8 Puffs in mcg/actuati the on HFAA evening. budesonide- 2023-0 Yes [id number] 2{puff} Inhale 2 Univers glycopyr-fo 3-20 Puffs in ity of rmoterol 00:00: the [place] ([facility] 00 morning Medical AEROSPHERE) and 2 Branch 160-9-4.8 Puffs in mcg/actuati the on HFAA evening. budesonide- 3-0 Yes [id number] 2{puff} Inhale 2 Univers glycopyr-fo 3-20 Puffs in ity of rmoterol 00:00: the [place] ([facility] 00 morning Medical AEROSPHERE) and 2 Branch 160-9-4.8 Puffs in mcg/actuati the on HFAA evening. budesonide- 3-0 Yes [id number] 2{puff} Inhale 2 Univers glycopyr-fo 3-20 Puffs in ity of rmoterol 00:00: the [place] ([facility] 00 morning Medical AEROSPHERE) and 2 Branch 160-9-4.8 Puffs in mcg/actuati the on HFAA evening. budesonide- 2023-0 Yes [id number] 2{puff} Inhale 2 Univers glycopyr-fo 3-20 Puffs in ity of rmoterol 00:00: the [place] ([facility] 00 morning Medical AEROSPHERE) and 2 Branch 160-9-4.8 Puffs in mcg/actuati the on HFAA evening. budesonide- 2023-0 Yes [id number] 2{puff} Inhale 2 Univers glycopyr-fo 3-20 Puffs in ity of rmoterol 00:00: the [place] ([facility] 00 morning Medical AEROSPHERE) and 2 Branch 160-9-4.8 Puffs in mcg/actuati the on HFAA evening. budesonide- Yes [id number] 2{puff} Inhale 2 Univers glycopyr-fo 3-20 Puffs in ity of rmoterol 00:00: the [place] ([facility] 00 morning Medical AEROSPHERE) and 2 Branch 160-9-4.8 Puffs in mcg/actuati the on [facility] evening. ESOMEPRAZOL 2022- No 20mg Take 20 mg Univers E MAG 2-28 -28 by mouth ity of TRIHYDRATE 07:53: 00:00 once now. [place] (NEXIUM 38 :00 Medical ORAL) Branch ESOMEPRAZOL 2022- No 20mg Take 20 mg Univers E MAG 2-28 - by mouth ity of TRIHYDRATE 07:53: 00:00 [place] now. [place] (NEXIUM 38 :00 Medical ORAL) Branch ESOMEPRAZOL 2022- No 20mg Take 20 mg Univers E MAG 2-28 -28 by mouth ity of TRIHYDRATE 07:53: 00:00 once now. [place] (NEXIUM 38 :00 Medical ORAL) Branch ESOMEPRAZOL 2022- No 20mg Take 20 mg Univers E MAG 2-28 -28 by mouth ity of TRIHYDRATE 07:53: 00:00 once now. [place] (NEXIUM 38 :00 Medical ORAL) Branch esomeprazol Yes [id number] 20mg Take 20 mg Univers e 20 mg 2-28 by mouth ity of capsule 00:00: daily [place] 00 before a Medical meal. Branch esomeprazol 0 Yes [id number] 20mg Take 20 mg Univers e 20 mg 2-28 by mouth ity of capsule 00:00: daily [place] 00 before a Medical meal. Branch esomeprazol 0 Yes [id number] 20mg Take 20 mg Univers e 20 mg 2-28 by mouth ity of capsule 00:00: daily [place] 00 before a Medical meal. Branch esomeprazol Yes [id number] 20mg Take 20 mg Univers e 20 mg 2-28 by mouth ity of capsule 00:00: daily [place] 00 before a Medical meal. Branch esomeprazol 2023-0 Yes [id number] 20mg Take 20 mg Univers e 20 mg 2-28 by mouth ity of capsule 00:00: daily [place] 00 before a Medical meal. Branch esomeprazol 2022-0 Yes [id number] 20mg Take 20 mg Univers e 20 mg 2-28 by mouth ity of capsule 00:00: daily [place] 00 before a Medical meal. Branch esomeprazol 2022-0 Yes [id number] 20mg Take 20 mg Univers e 20 mg 2-28 by mouth ity of capsule 00:00: daily [place] 00 before a Medical meal. Branch esomeprazol 2022-0 Yes [id number] 20mg Take 20 mg Univers e 20 mg 2-28 by mouth ity of capsule 00:00: daily [place] 00 before a Medical meal. Branch esomeprazol 2022-0 Yes [id number] 20mg Take 20 mg Univers e 20 mg 2-28 by mouth ity of capsule 00:00: daily [place] 00 before a Medical meal. Branch esomeprazol 2022-0 Yes [id number] 20mg Take 20 mg Univers e 20 mg 2-28 by mouth ity of capsule 00:00: daily [place] 00 before a Medical meal. Branch esomeprazol 2022-0 Yes [id number] 20mg Take 20 mg Univers e 20 mg 2-28 by mouth ity of capsule 00:00: daily [place] 00 before a Medical meal. Branch esomeprazol 0 Yes [id number] 20mg Take 20 mg Univers e 20 mg 2-28 by mouth ity of capsule 00:00: daily [place] 00 before a Medical meal. Branch esomeprazol 2022- No [id number] 20mg Take 20 mg Univers e 20 mg 2-28 03-24 by mouth ity of capsule 00:00: 00:00 daily [place] 00 :00 before a Medical meal. [place] KEPPRA 100 0 2022- No 12 ml BID U nivers MG/ML ORAL 08-19 , per mom ity of SOLN 09:36: 00:00 [place] 06 :00 [facility] KEPPRA 100 0 2022- No 12 ml BID U nivers MG/ML ORAL 08-19 , per mom ity of SOLN 09:36: 00:00 [place] 06 :00 [facility] RUIZRA 100 2022-0 2023- No 12 ml BID U nivers MG/ML ORAL 08-19 , per mom ity of SOLN 09:36: 00:00 [place] 06 :00 [facility] JOEPPRA 100 2022-0 2023- No 12 ml BID U nivers MG/ML ORAL 08-19 , per mom ity of SOLN 09:36: 00:00 [place] 06 :00 Medical [facility] JOERA 100 2022-0 2023- No 12 ml BID U nivers MG/ML ORAL 08-19 , per mom ity of SOLN 09:36: 00:00 [place] 06 :00 Medical Branch RUIZRA 100 2022-0 2023- No 12 ml BID U nivers MG/ML ORAL 08-19 , per mom ity of SOLN 09:36: 00:00 [place] 06 :00 Medical Branch DIASTAT 2022-0 2023- No 10mg as Univer s ACUDIAL 08-19 [...] l greater Branch than 5 min DIASTAT 0 2023- No 10mg as Univer s ACUDIAL 08-19 needed for ity o f 5-7.5-10 MG 09:35: 00:00 seizure [place] RECTAL KIT 50 :00 lasting Medica l greater Branch than 5 min DIASTAT 3- No 10mg as Univer s ACUDIAL 08-19 [...] affected ity o f aquaphor 08:59: area(s). [place] (COMPOUNDED [facility] Medical ) ointment Branch ARIPiprazol Yes by [employer]-a[employer] s e (ABILIFY 08-19 Intramuscu ity of [...] affected ity o f aquaphor 08:59: area(s). [place] ([facility] ) ointment Branch ARIPiprazol [...] affected ity o f aquaphor 08:59: area(s). [place] ([facility] Medical ) ointment Branch ARIPiprazol [...] affected ity o f aquaphor 08:59: area(s). [place] (COMPOUND[facility] Medical ) ointment Branch ARIPiprazol [...] affected ity o f aquaphor 08:59: area(s). [place] (COMPOUND[facility] Medical ) ointment Branch ARIPiprazol [...] affected ity o f aquaphor 08:59: area(s). [place] (COMPOUND[facility] Medical ) ointment Branch ARIPiprazol [...] affected ity o f aquaphor 08:59: area(s). [place] (COMPOUND[facility] Medical ) ointment Branch ARIPiprazol [...] affected ity o f aquaphor 08:59: area(s). [place] ([facility] Medical ) ointment Branch ARIPiprazol [...] affected ity o f aquaphor 08:59: area(s). [place] ([facility] ) ointment Branch ARIPiprazol 2022-0 Yes by Univer s e (ABILIFY 2-01 Intramuscu ity of MAINTENA) 08:59: lar route [place] as 300 mg sers 36 once every Me dical month. Branch ESOMEPRAZOL 2022-0 Yes 20mg Take 20 mg [facility] E MAG 2-01 by mouth ity of TRIHYDRATE 08:59: once now. [place] ([place] 36 Medical ORAL) Branch triamcinolo 2023-0 Yes Apply to Un [place] 0.1% in 08-19 affected ity o f aquaphor 08:59: area(s). [place] (COMPOUNDED 36 Medical ) ointment Branch ARIPiprazol 2022- Yes by [facility] (ABILIFY 2 Intramuscu ity of [place]) 08:59: lar route [place] as 300 mg sers 36 once every Me dical month. Branch triamcinolo 2022- Yes Apply to [place] 0.1% in 08-19 affected ity o f aquaphor 08:59: area(s). [place] ([facility]OUND[facility] 36 [facility] ) ointment Branch ARIPiprazol 2022- Yes by [facility] (ABILIFY 2 Intramuscu ity of [place]) 08:59: lar route [place] 300 mg sers 36 once every Me dical month. Branch triamcinolo Yes Apply to [facility] 0.1% in 08-19 affected ity o f aquaphor 08:59: area(s). [place] ([facility] 36 [facility] ) ointment Branch ARIPiprazol 2022- Yes by [facility] (ABILIFY 2 Intramuscu [facility]y of [place]) 08:59: lar route [place] 300 mg sers 36 once every Me dical month. Branch triamcinolo 2022- Yes Apply to [place] 0.1% in 08-19 affected ity o f aquaphor 08:59: area(s). [place] ([facility] 36 [facility] ) ointment Branch ARIPiprazol 2022-0 Yes by [facility] (ABILIFY 2 Intramus[facility]y of [place]) 08:59: lar route [place] 300 mg sers 36 once every Me dical month. Branch triamcinolo 2022- Yes Apply to [place] 0.1% in 08-19 affected ity o f aquaphor 08:59: area(s). [place] ([facility] 36 [facility] ) ointment Branch ARIPiprazol 2022-0 Yes by [facility] (ABILIFY 2 Intramus[facility]y of [place]) 08:59: lar route [place] 300 mg sers 36 once every Me dical month. Branch triamcinolo 3-0 Yes Apply to [place] 0.1% in 08-19 affected ity o f aquaphor 08:59: area(s). [place] ([facility] 36 [facility] ) ointment Branch ARIPiprazol 3-0 Yes by [facility] (ABILIFY 2 Intr[facility] of [place]) 08:59: lar route [place] 300 mg sers 36 once every Me dical month. Branch triamcinolo 2022-0 Yes Apply to [place] 0.1% in 08-19 affected ity o f aquaphor 08:59: area(s). [place] ([facility] 36 [facility] ) ointment Branch ARIPiprazol 2022-0 Yes by [facility] (ABILIFY 2 Intr[facility] of [place]) 08:59: lar route [place] 300 mg sers 36 once every Me dical month. Branch triamcinolo 3-0 Yes Apply to [place] 0.1% in 08-19 affected ity o f aquaphor 08:59: area(s). [place] ([facility] 36 [facility] ) ointment Branch ARIPiprazol 2022-0 Yes by [facility] (ABILIFY 2 [facility] of [place]) 08:59: lar route [place] 300 mg sers 36 once every Me dical month. Branch triamcinolo 3-0 Yes Apply to [place] 0.1% in 08-19 affected ity o f aquaphor 08:59: area(s). [place] ([facility] 36 [facility] ) ointment Branch ARIPiprazol 2022-0 Yes by [facility] (ABILIFY 2 [facility]y of [place]) 08:59: lar route [place] 300 mg sers 36 once every Me dical month. Branch triamcinolo 3-0 Yes Apply to [place] 0.1% in 08-19 affected ity o f aquaphor 08:59: area(s). [place] ([facility] 36 [facility] ) ointment Branch ARIPiprazol 3-0 Yes by [facility] (ABILIFY 2 [facility] of [place]) 08:59: lar route [place] 300 mg sers 36 once every Me dical month. Branch triamcinolo 3-0 Yes Apply to [place] 0.1% in - affected ity o f aquaphor 08:59: area(s). [place] ([facility] 36 [facility] ) ointment Branch ARIPiprazol 3-0 Yes by [facility] (ABILIFY 2 [facility] of [place]) 08:59: lar route [place] 300 mg sers 36 once every Me dical month. Branch triamcinolo 3-0 Yes Apply to [place] 0.1% in 08-19 affected ity o f aquaphor 08:59: area(s). [place] ([facility] 36 [facility] ) ointment Branch ARIPiprazol 3-0 Yes by [facility] (ABILIFY 2 Intr[facility]y of [place]) 08:59: lar route [place] 300 mg sers 36 once every Me dical month. Branch triamcinolo 3-0 Yes Apply to [place] 0.1% in 08-19 affected ity o f aquaphor 08:59: area(s). [place] ([facility] 36 [facility] ) ointment Branch ARIPiprazol 3-0 Yes by [facility] (ABILIFY 2 Intr[facility] of [place]) 08:59: lar route [place] 300 mg sers 36 once every Me dical month. Branch triamcinolo 3-0 Yes Apply to [place] 0.1% in 08-19 affected ity o f aquaphor 08:59: area(s). [place] ([facility] ) ointment Branch ARIPiprazol 3-0 Yes by [facility] (ABILIFY 2 [facility] of [place]) 08:59: lar route [place] 300 mg sers 36 once every Me dical month. Branch triamcinolo 2023-0 Yes Apply to [place] 0.1% in 2- affected ity o f aquaphor 08:59: area(s). [place] ([facility] 36 [facility] ) ointment Branch ARIPiprazol 2022-0 Yes by [facility] (ABILIFY 2 Intr[facility] of [place]) 08:59: lar route [place] 300 mg sers 36 once every Me dical month. Branch triamcinolo 2022-0 Yes Apply to [place] 0.1% in 08-19 affected ity o f aquaphor 08:59: area(s). [place] ([facility] 36 [facility] ) ointment Branch ARIPiprazol 2022-0 Yes by [facility] (ABILIFY 2 [facility] of [place]) 08:59: lar route [place] 300 mg sers 36 once every Me dical month. Branch triamcinolo 2022-0 Yes Apply to [place] 0.1% in 08-19 affected ity o f aquaphor 08:59: area(s). [place] ([facility] 36 [facility] ) ointment Branch ARIPiprazol 2022-0 Yes by [facility] (ABILIFY 08-19 Intr[facility]y of [place]) 08:59: lar route [place] 300 mg sers 36 once every Me dical month. Branch triamcinolo 2022-0 Yes Apply to [place] 0.1% in 08-19 affected ity o f aquaphor 08:59: area(s). [place] ([facility] 36 [facility] ) ointment Branch ARIPiprazol 2022-0 Yes by [facility] (ABILIFY 2 Intr[facility] of [place]) 08:59: lar route [place] 300 mg sers 36 once every Me dical month. Branch triamcinolo 2022-0 Yes Apply to [place] 0.1% in 08-19 affected ity o f aquaphor 08:59: area(s). [place] ([facility] 36 [facility] ) ointment Branch ARIPiprazol 2022-0 Yes by [facility] (ABILIFY 2 Intr[facility] of [place]) 08:59: lar route [place] 300 mg sers 36 once every Me dical month. Branch triamcinolo 3-0 Yes Apply to [place] 0.1% in 08-19 affected ity o f aquaphor 08:59: area(s). [place] ([facility] 36 [facility] ) ointment Branch ARIPiprazol 3-0 Yes by [facility] (ABILIFY 2- Intramuscu [facility]y of [place]) 08:59: lar route [place] 300 mg sers 36 once every Me dical month. Branch triamcinolo 3-0 Yes Apply to [place] 0.1% in 2- affected ity o f aquaphor 08:59: area(s). [place] ([facility] 36 [facility] ) ointment Branch ARIPiprazol 3-0 Yes by [facility] (ABILIFY 2- Intr[facility]cu [facility] of [place]) 08:59: lar route [place] 300 mg sers 36 once every Me dical month. Branch triamcinolo 3-0 Yes Apply to [place] 0.1% in 2- affected ity o f aquaphor 08:59: area(s). [place] ([facility] 36 [facility] ) ointment Branch ARIPiprazol 3-0 Yes by [facility] (ABILIFY 2- Intramuscu [facility]y of [place]) 08:59: lar route [place] 300 mg sers 36 once every Me dical month. Branch triamcinolo 3-0 Yes Apply to [place] 0.1% in 2- affected ity o f aquaphor 08:59: area(s). [place] ([facility] 36 [facility] ) ointment Branch ARIPiprazol 3-0 Yes by [facility] (ABILIFY 2- Intramuscu [facility]y of [place]) 08:59: lar route [place] 300 mg sers 36 once every Me dical month. Branch triamcinolo 2023-0 Yes Apply to [place] 0.1% in 2- affected ity o f aquaphor 08:59: area(s). [place] ([facility] 36 [facility] ) ointment Branch ARIPiprazol 2023-0 Yes by [facility] (ABILIFY 2- Intramuscu [facility]y of [place]) 08:59: lar route [place] 300 mg sers 36 once every Me dical month. Branch triamcinolo 2023-0 Yes Apply to [place] 0.1% in 08-19 affected ity o f aquaphor 08:59: area(s). [place] ([facility] 36 [facility] ) ointment Branch ARIPiprazol 2022-0 Yes by [facility] (ABILIFY 2 Intramuscu ity of [place]) 08:59: lar route [place] 300 mg sers 36 once every Me dical month. Branch triamcinolo 2022-0 Yes Apply to [place] 0.1% in 08-19 affected ity o f aquaphor 08:59: area(s). [place] ([facility] 36 [facility] ) ointment Branch ARIPiprazol 2022-0 Yes by [facility] (ABILIFY 2 Intramus[facility]y of [place]) 08:59: lar route [place] as 300 mg sers 36 once every Me dical month. Branch triamcinolo 2022-0 Yes Apply to [place] 0.1% in 08-19 affected ity o f aquaphor 08:59: area(s). [place] ([facility] 36 [facility] ) ointment Branch ARIPiprazol 2022-0 Yes by [facility] (ABILIFY 2 Intramuscu ity of [place]) 08:59: lar route [place] as 300 mg sers 36 once every Me dical month. Branch triamcinolo 2022-0 Yes Apply to [facility] 0.1% in 08-19 affected ity o f aquaphor 08:59: area(s). [place] ([facility] 36 [facility] ) ointment Branch ARIPiprazol [...] every Me dical month. Branch SUMAtriptan Yes [id number] 20mg Use 1 [facility] 20 2- [place] in 1 ity of mg/actuatio 00:00: nostril as [place] n nasal 00 needed Medical spray (migraine) Branch . midazolam Yes [id number] 5mg Use 5 mg [facility] (NAYZILAM) 2- in each ity of 5 mg/spray 00:00: nostril as [place] (0.1 mL) 00 needed [facility] [place] (seizure). Branch levETIRAcet Yes [id number] 1000mg Take 10 mL [facility] am (KEPPRA) 2- by mouth ity of 100 mg/mL 00:00: in the [place] oral 00 morning Medical solution and 10 mL Branch in the evening. SUMAtriptan 2023-0 Yes [id number] 20mg Use 1 [facility] 20 2-01 [place] in 1 ity of mg/actuatio 00:00: nostril as [place] n nasal 00 needed Medical spray (migraine) Branch . midazolam 2022-0 Yes [id number] 5mg Use 5 mg [facility] (NAYZILAM) 2-01 in each ity of 5 mg/spray 00:00: nostril as [place] (0.1 mL) 00 needed [facility] [place] (seizure). Branch levETIRAcet 2022-0 Yes [id number] 1000mg Take 10 mL [facility] am (KEPPRA) 2-01 by mouth ity of 100 mg/mL 00:00: in the [place] oral 00 morning Medical solution and 10 mL Branch in the evening. SUMAtriptan 2022-0 Yes [id number] 20mg Use 1 [facility] 20 2-01 [place] [facility] 1 ity of mg/actuatio 00:00: nostril as [place] n nasal 00 needed Medical spray (migraine) Branch . midazolam 2022-0 Yes [id number] 5mg Use 5 mg [facility] (NAYZILAM) 2-01 in each ity of 5 mg/spray 00:00: nostril as [place] (0.1 mL) 00 needed [facility] [place] (seizure). Branch levETIRAcet 0 Yes [id number] 1000mg Take 10 mL [facility] am (KEPPRA) 2-01 by mouth ity of 100 mg/mL 00:00: in the [place] oral 00 morning Medical solution and 10 mL Branch in the evening. SUMAtriptan 2022-0 Yes [id number] 20mg Use 1 [facility] 20 2-01 [place] in 1 ity of mg/actuatio 00:00: nostril as [place] n nasal 00 needed Medical spray (migraine) Branch . midazolam 2022-0 Yes [id number] 5mg Use 5 mg [facility] (NAYZILAM) 2-01 in each ity of 5 mg/spray 00:00: nostril as [place] (0.1 mL) 00 needed [facility] [place] (seizure). Branch levETIRAcet 2022-0 Yes [id number] 1000mg Take 10 mL [facility] am (KEPPRA) 2-01 by mouth ity of 100 mg/mL 00:00: in the [place] oral 00 morning Medical solution and 10 mL Branch in the evening. SUMAtriptan 2022-0 Yes [id number] 20mg Use 1 [facility] 20 2-01 [place] [facility] 1 ity of mg/actuatio 00:00: nostril as [place] n nasal 00 needed Medical spray (migraine) Branch . midazolam 2022-0 Yes [id number] 5mg Use 5 mg [facility] (NAYZILAM) 2-01 in each ity of 5 mg/spray 00:00: nostril as [place] (0.1 mL) 00 needed [facility] [place] (seizure). Branch levETIRAcet 2022-0 Yes [id number] 1000mg Take 10 mL [facility] am (KEPPRA) 2-01 by mouth ity of 100 mg/mL 00:00: in the [place] oral 00 morning Medical solution and 10 mL Branch in the evening. SUMAtriptan 2022-0 Yes [id number] 20mg Use 1 [facility] 20 2-01 [place] [facility] 1 ity of mg/actuatio 00:00: nostril as [place] n nasal 00 needed Medical spray (migraine) Branch . midazolam 2022-0 Yes [id number] 5mg Use 5 mg [facility] (NAYZILAM) 2-01 in each ity of 5 mg/spray 00:00: nostril as [place] (0.1 mL) 00 needed [facility] [place] (seizure). Branch levETIRAcet 0 Yes [id number] 1000mg Take 10 mL [facility] am (KEPPRA) 2-01 by mouth ity of 100 mg/mL 00:00: in the [place] oral 00 morning Medical solution and 10 mL Branch in the evening. SUMAtriptan 2022-0 Yes [id number] 20mg Use 1 [facility] 20 2-01 [place] [facility] 1 ity of mg/actuatio 00:00: nostril as [place] n nasal 00 needed Medical spray (migraine) Branch . midazolam 2022-0 Yes [id number] 5mg Use 5 mg [facility] (NAYZILAM) 2-01 in each ity of 5 mg/spray 00:00: nostril as [place] (0.1 mL) 00 needed [facility] [place] (seizure). Branch levETIRAcet 0 Yes [id number] 1000mg Take 10 mL [facility] am (KEPPRA) 2-01 by mouth ity of 100 mg/mL 00:00: in the [place] oral 00 morning Medical solution and 10 mL Branch in the evening. SUMAtriptan 2022-0 Yes [id number] 20mg Use 1 [facility] 20 2-01 [place] [facility] 1 ity of mg/actuatio 00:00: nostril as [place] n nasal 00 needed Medical spray (migraine) Branch . midazolam 2022-0 Yes [id number] 5mg Use 5 mg [facility] (NAYZILAM) 2-01 in each ity of 5 mg/spray 00:00: nostril as [place] (0.1 mL) 00 needed [facility] [place] (seizure). Branch levETIRAcet 0 Yes [id number] 1000mg Take 10 mL [facility] am (KEPPRA) 2-01 by mouth ity of 100 mg/mL 00:00: in the [place] oral 00 morning Medical solution and 10 mL Branch in the evening. SUMAtriptan 2022-0 Yes [id number] 20mg Use 1 [facility] 20 2-01 [place] [facility] 1 ity of mg/actuatio 00:00: nostril as [place] n nasal 00 needed Medical spray (migraine) Branch . midazolam 2022-0 Yes [id number] 5mg Use 5 mg [facility] (NAYZILAM) 2-01 in each ity of 5 mg/spray 00:00: nostril as [place] (0.1 mL) 00 needed [facility] [place] (seizure). Branch levETIRAcet 2022-0 Yes [id number] 1000mg Take 10 mL [facility] am (KEPPRA) 2-01 by mouth ity of 100 mg/mL 00:00: in the [place] oral 00 morning Medical solution and 10 mL Branch in the evening. SUMAtriptan 2022-0 Yes [id number] 20mg Use 1 [facility] 20 2-01 [place] in 1 ity of mg/actuatio 00:00: nostril as [place] n nasal 00 needed Medical spray (migraine) Branch . midazolam 2022-0 Yes [id number] 5mg Use 5 mg [facility] (NAYZILAM) 2-01 in each ity of 5 mg/spray 00:00: nostril as [place] (0.1 mL) 00 needed [facility] [place] (seizure). Branch levETIRAcet 2022-0 Yes [id number] 1000mg Take 10 mL [facility] am (KEPPRA) 2-01 by mouth ity of 100 mg/mL 00:00: in the [place] oral 00 morning Medical solution and 10 mL Branch in the evening. SUMAtriptan 2022-0 Yes [id number] 20mg Use 1 [facility] 20 2-01 [place] in 1 ity of mg/actuatio 00:00: nostril as [place] n nasal 00 needed Medical spray (migraine) Branch . midazolam 2022-0 Yes [id number] 5mg Use 5 mg [facility] (NAYZILAM) 2-01 in each ity of 5 mg/spray 00:00: nostril as [place] (0.1 mL) 00 needed [facility] [place] (seizure). Branch levETIRAcet 2022-0 Yes [id number] 1000mg Take 10 mL [facility] am (KEPPRA) 2-01 by mouth ity of 100 mg/mL 00:00: in the [place] oral 00 morning Medical solution and 10 mL Branch in the evening. SUMAtriptan 2022-0 Yes [id number] 20mg Use 1 [facility] 20 2-01 [place] in 1 ity of mg/actuatio 00:00: nostril as [place] n nasal 00 needed Medical spray (migraine) Branch . midazolam 2022-0 Yes [id number] 5mg Use 5 mg [facility] (NAYZILAM) 2-01 in each ity of 5 mg/spray 00:00: nostril as [place] (0.1 mL) 00 needed [facility] [place] (seizure). Branch levETIRAcet 2022-0 Yes [id number] 1000mg Take 10 mL [facility] am (KEPPRA) 2-01 by mouth ity of 100 mg/mL 00:00: in the [place] oral 00 morning Medical solution and 10 mL Branch in the evening. SUMAtriptan 2022-0 Yes [id number] 20mg Use 1 [facility] 20 2-01 [place] in 1 ity of mg/actuatio 00:00: nostril as [place] n nasal 00 needed Medical spray (migraine) Branch . midazolam 2022-0 Yes [id number] 5mg Use 5 mg [facility] (NAYZILAM) 2-01 in each ity of 5 mg/spray 00:00: nostril as [place] (0.1 mL) 00 needed [facility] [place] (seizure). Branch levETIRAcet 2022-0 Yes [id number] 1000mg Take 10 mL [facility] am (KEPPRA) 2-01 by mouth ity of 100 mg/mL 00:00: in the [place] oral 00 morning Medical solution and 10 mL Branch in the evening. SUMAtriptan 2022-0 Yes [id number] 20mg Use 1 [facility] 20 2-01 [place] in 1 ity of mg/actuatio 00:00: nostril as [place] n nasal 00 needed Medical spray (migraine) Branch . midazolam 2022-0 Yes [id number] 5mg Use 5 mg [facility] (NAYZILAM) 2-01 in each ity of 5 mg/spray 00:00: nostril as [place] (0.1 mL) 00 needed [facility] [place] (seizure). Branch levETIRAcet 2022-0 Yes [id number] 1000mg Take 10 mL [facility] am (KEPPRA) 2-01 by mouth ity of 100 mg/mL 00:00: in the [place] oral 00 morning Medical solution and 10 mL Branch in the evening. SUMAtriptan 2022-0 Yes [id number] 20mg Use 1 [facility] 20 2-01 [place] in 1 ity of mg/actuatio 00:00: nostril as [place] n nasal 00 needed Medical spray (migraine) Branch . midazolam 2022-0 Yes [id number] 5mg Use 5 mg [facility] (NAYZILAM) 2-01 in each ity of 5 mg/spray 00:00: nostril as [place] (0.1 mL) 00 needed [facility] [place] (seizure). Branch levETIRAcet 2022-0 Yes [id number] 1000mg Take 10 mL [facility] am (KEPPRA) 2-01 by mouth ity of 100 mg/mL 00:00: in the [place] oral 00 morning Medical solution and 10 mL Branch in the evening. SUMAtriptan 2022-0 Yes [id number] 20mg Use 1 [facility] 20 2-01 [place] in 1 ity of mg/actuatio 00:00: nostril as [place] n nasal 00 needed Medical spray (migraine) Branch . midazolam 2022-0 Yes [id number] 5mg Use 5 mg [facility] (NAYZILAM) 2-01 in each ity of 5 mg/spray 00:00: nostril as [place] (0.1 mL) 00 needed [facility] [place] (seizure). Branch levETIRAcet 2023-0 Yes [id number] 1000mg Take 10 mL [facility] am (KEPPRA) 2-01 by mouth ity of 100 mg/mL 00:00: in the [place] oral 00 morning Medical solution and 10 mL Branch in the evening. SUMAtriptan 2022-0 Yes [id number] 20mg Use 1 [facility] 20 2-01 [place] in 1 ity of mg/actuatio 00:00: nostril as [place] n nasal 00 needed Medical spray (migraine) Branch . midazolam 2022-0 Yes [id number] 5mg Use 5 mg [facility] (NAYZILAM) 2-01 in each ity of 5 mg/spray 00:00: nostril as [place] (0.1 mL) 00 needed [facility] [place] (seizure). Branch levETIRAcet 0 Yes [id number] 1000mg Take 10 mL [facility] am (KEPPRA) 2-01 by mouth ity of 100 mg/mL 00:00: in the [place] oral 00 morning Medical solution and 10 mL Branch in the evening. SUMAtriptan 2022-0 Yes [id number] 20mg Use 1 [facility] 20 2-01 [place] in 1 ity of mg/actuatio 00:00: nostril as [place] n nasal 00 needed Medical spray (migraine) Branch . midazolam 2022-0 Yes [id number] 5mg Use 5 mg [facility] (NAYZILAM) 2-01 in each ity of 5 mg/spray 00:00: nostril as [place] (0.1 mL) 00 needed [facility] [place] (seizure). Branch levETIRAcet 0 Yes [id number] 1000mg Take 10 mL [facility] am (KEPPRA) 2-01 by mouth ity of 100 mg/mL 00:00: in the [place] oral 00 morning Medical solution and 10 mL Branch in the evening. SUMAtriptan 2022-0 Yes [id number] 20mg Use 1 [facility] 20 2-01 [place] in 1 ity of mg/actuatio 00:00: nostril as [place] n nasal 00 needed Medical spray (migraine) Branch . midazolam 2022-0 Yes [id number] 5mg Use 5 mg [facility] (NAYZILAM) 2-01 in each ity of 5 mg/spray 00:00: nostril as [place] (0.1 mL) 00 needed [facility] [place] (seizure). Branch levETIRAcet 2022-0 Yes [id number] 1000mg Take 10 mL [facility] am (KEPPRA) 2-01 by mouth ity of 100 mg/mL 00:00: in the [place] oral 00 morning Medical solution and 10 mL Branch in the evening. SUMAtriptan 2022-0 Yes [id number] 20mg Use 1 [facility] 20 2-01 [place] in 1 ity of mg/actuatio 00:00: nostril as [place] n nasal 00 needed Medical spray (migraine) Branch . midazolam 2022-0 Yes [id number] 5mg Use 5 mg [facility] (NAYZILAM) 2-01 in each ity of 5 mg/spray 00:00: nostril as [place] (0.1 mL) 00 needed [facility] [place] (seizure). Branch levETIRAcet 2022-0 Yes [id number] 1000mg Take 10 mL [facility] am (KEPPRA) 2-01 by mouth ity of 100 mg/mL 00:00: in the [place] oral 00 morning Medical solution and 10 mL Branch in the evening. SUMAtriptan 2022-0 Yes [id number] 20mg Use 1 [facility] 20 2-01 [place] in 1 ity of mg/actuatio 00:00: nostril as [place] n nasal 00 needed Medical spray (migraine) Branch . midazolam 2022-0 Yes [id number] 5mg Use 5 mg [facility] (NAYZILAM) 2-01 in each ity of 5 mg/spray 00:00: nostril as [place] (0.1 mL) 00 needed [facility] [place] (seizure). Branch levETIRAcet 2022-0 Yes [id number] 1000mg Take 10 mL [facility] am (KEPPRA) 2-01 by mouth ity of 100 mg/mL 00:00: in the [place] oral 00 morning Medical solution and 10 mL Branch in the evening. SUMAtriptan 2022-0 Yes [id number] 20mg Use 1 [facility] 20 2-01 [place] in 1 ity of mg/actuatio 00:00: nostril as [place] n nasal 00 needed Medical spray (migraine) Branch . midazolam 2022-0 Yes [id number] 5mg Use 5 mg [facility] (NAYZILAM) 2-01 in each ity of 5 mg/spray 00:00: nostril as [place] (0.1 mL) 00 needed [facility] [place] (seizure). Branch levETIRAcet 2022-0 Yes [id number] 1000mg Take 10 mL [facility] am (KEPPRA) 2-01 by mouth ity of 100 mg/mL 00:00: in the [place] oral 00 morning Medical solution and 10 mL Branch in the evening. SUMAtriptan 2022-0 Yes [id number] 20mg Use 1 [facility] 20 2-01 [place] in 1 ity of mg/actuatio 00:00: nostril as [place] n nasal 00 needed Medical spray (migraine) Branch . midazolam 2022-0 Yes [id number] 5mg Use 5 mg [facility] (NAYZILAM) 2-01 in each ity of 5 mg/spray 00:00: nostril as [place] (0.1 mL) 00 needed [facility] [place] (seizure). Branch levETIRAcet 2022-0 Yes [id number] 1000mg Take 10 mL [facility] am (KEPPRA) 2-01 by mouth ity of 100 mg/mL 00:00: in the [place] oral 00 morning Medical solution and 10 mL Branch in the evening. SUMAtriptan 2022-0 Yes [id number] 20mg Use 1 [facility] 20 2-01 [place] in 1 ity of mg/actuatio 00:00: nostril as [place] n nasal 00 needed Medical spray (migraine) Branch . midazolam 2022-0 Yes [id number] 5mg Use 5 mg [facility] (NAYZILAM) 2-01 in each ity of 5 mg/spray 00:00: nostril as [place] (0.1 mL) 00 needed [facility] [place] (seizure). Branch levETIRAcet 2022-0 Yes [id number] 1000mg Take 10 mL [facility] am (KEPPRA) 2-01 by mouth ity of 100 mg/mL 00:00: in the [place] oral 00 morning Medical solution and 10 mL Branch in the evening. SUMAtriptan 2022-0 Yes [id number] 20mg Use 1 [facility] 20 2-01 [place] in 1 ity of mg/actuatio 00:00: nostril as [place] n nasal 00 needed Medical spray (migraine) Branch . midazolam 2022-0 Yes [id number] 5mg Use 5 mg [facility] (NAYZILAM) 2-01 in each ity of 5 mg/spray 00:00: nostril as [place] (0.1 mL) 00 needed [facility] [place] (seizure). Branch levETIRAcet 2022-0 Yes [id number] 1000mg Take 10 mL [facility] am (KEPPRA) 2-01 by mouth ity of 100 mg/mL 00:00: in the [place] oral 00 morning Medical solution and 10 mL Branch in the evening. SUMAtriptan 2022-0 Yes [id number] 20mg Use 1 [facility] 20 2-01 [place] in 1 ity of mg/actuatio 00:00: nostril as [place] n nasal 00 needed Medical spray (migraine) Branch . midazolam 2022-0 Yes [id number] 5mg Use 5 mg [facility] (NAYZILAM) 2-01 in each ity of 5 mg/spray 00:00: nostril as [place] (0.1 mL) 00 needed [facility] [place] (seizure). Branch levETIRAcet 2022-0 Yes [id number] 1000mg Take 10 mL [facility] am (KEPPRA) 2-01 by mouth ity of 100 mg/mL 00:00: in the [place] oral 00 morning Medical solution and 10 mL Branch in the evening. SUMAtriptan 2022-0 Yes [id number] 20mg Use 1 [facility] 20 2-01 [place] in 1 ity of mg/actuatio 00:00: nostril as [place] n nasal 00 needed Medical spray (migraine) Branch . midazolam 2022-0 Yes [id number] 5mg Use 5 mg [facility] (NAYZILAM) 2-01 in each ity of 5 mg/spray 00:00: nostril as [place] (0.1 mL) 00 needed [facility] [place] (seizure). Branch levETIRAcet 2022-0 Yes [id number] 1000mg Take 10 mL [facility] am (KEPPRA) 2-01 by mouth ity of 100 mg/mL 00:00: in the [place] oral 00 morning Medical solution and 10 mL Branch in the evening. SUMAtriptan 2022-0 Yes [id number] 20mg Use 1 [facility] 20 2-01 [place] in 1 ity of mg/actuatio 00:00: nostril as [place] n nasal 00 needed Medical spray (migraine) Branch . midazolam 2022-0 Yes [id number] 5mg Use 5 mg [facility] (NAYZILAM) 2-01 in each ity of 5 mg/spray 00:00: nostril as [place] (0.1 mL) 00 needed [facility] [place] (seizure). Branch levETIRAcet 2022-0 Yes [id number] 1000mg Take 10 mL [facility] am (KEPPRA) 2-01 by mouth ity of 100 mg/mL 00:00: in the [place] oral 00 morning Medical solution and 10 mL Branch in the evening. SUMAtriptan 2022-0 Yes [id number] 20mg Use 1 [facility] 20 2-01 [place] in 1 ity of mg/actuatio 00:00: nostril as [place] n nasal 00 needed Medical spray (migraine) Branch . midazolam 2022-0 Yes [id number] 5mg Use 5 mg [facility] (NAYZILAM) 2-01 in each ity of 5 mg/spray 00:00: nostril as [place] (0.1 mL) 00 needed [facility] [place] (seizure). Branch levETIRAcet 2022-0 Yes [id number] 1000mg Take 10 mL [facility] am (KEPPRA) 2-01 by mouth ity of 100 mg/mL 00:00: in the [place] oral 00 morning Medical solution and 10 mL Branch in the evening. SUMAtriptan 2022-0 Yes [id number] 20mg Use 1 [facility] 20 2-01 [place] in 1 ity of mg/actuatio 00:00: nostril as [place] n nasal 00 needed Medical spray (migraine) Branch . midazolam 2022-0 Yes [id number] 5mg Use 5 mg [facility] (NAYZILAM) 2-01 in each ity of 5 mg/spray 00:00: nostril as [place] (0.1 mL) 00 needed [facility] [place] (seizure). Branch levETIRAcet 2022-0 Yes [id number] 1000mg Take 10 mL [facility] am (KEPPRA) 2-01 by mouth ity of 100 mg/mL 00:00: in the [place] oral 00 morning Medical solution and 10 mL Branch in the evening. SUMAtriptan 2022-0 Yes [id number] 20mg Use 1 [facility] 1 [facility]y of mg/actuatio 00:00: nostril as [place] n nasal 00 needed Medical spray (migraine) Branch . midazolam 2022-0 Yes [id number] 5mg Use 5 mg [facility] ([facility]IL[facility]) 2-01 in each ity of 5 mg/spray 00:00: nostril [place] (0.1 mL) 00 needed [facility] [place] (seizure). Branch levETIRAcet 2022-0 Yes [id number] 1000mg Take 10 mL [facility] (KEPPRA) 2-01 by mouth ity of 100 mg/mL 00:00: in the [place] oral 00 morning Medical solution and 10 mL Branch in the evening. SUMAtriptan 2022-0 Yes [id number] 20mg Use 1 [facility] 20 2-01 [facility] of mg/actuatio 00:00: nostril as [place] n nasal 00 needed Medical spray (migraine) Branch . midazolam 2022-0 Yes [id number] 5mg Use 5 mg [facility] ([facility]IL[facility]) 2-01 in each ity of 5 mg/spray 00:00: nostril as [place] (0.1 mL) 00 needed [facility] [place] (seizure). Branch levETIRAcet 2022-0 Yes [id number] 1000mg Take 10 mL [facility] (KEPPRA) 2-01 by mouth ity of 100 mg/mL 00:00: in the [place] oral 00 morning Medical solution and 10 mL Branch in the evening. SUMAtriptan 2022-0 Yes [id number] 20mg Use 1 [facility] 20 2-01 [facility] of mg/actuatio 00:00: nostril as [place] n nasal 00 needed Medical spray (migraine) Branch . midazolam 2022-0 Yes [id number] 5mg Use 5 mg [facility] ([facility]IL[facility]) 2-01 in each ity of 5 mg/spray 00:00: nostril as [place] (0.1 mL) 00 needed [facility] [place] (seizure). Branch levETIRAcet 2022-0 Yes [id number] 1000mg Take 10 mL [facility] (KEPPRA) 2-01 by mouth ity of 100 mg/mL 00:00: in the [place] oral 00 morning Medical solution and 10 mL Branch in the evening. SUMAtriptan 2022-0 Yes [id number] 20mg Use 1 [facility] 20 2-01 [facility] 1 [facility] of mg/actuatio 00:00: nostril as [place] n nasal 00 needed Medical spray (migraine) Branch . midazolam 2022-0 Yes [id number] 5mg Use 5 mg [facility] ([facility]) 2-01 in each ity of 5 mg/spray 00:00: nostril as [place] (0.1 mL) 00 needed [facility] [place] (seizure). Branch levETIRAcet 2022-0 Yes [id number] 1000mg Take 10 mL [facility] (KEPPRA) 2-01 by mouth ity of 100 mg/mL 00:00: in the [place] oral 00 morning Medical solution and 10 mL Branch in the evening. SUMAtriptan 2022-0 Yes [id number] 20mg Use 1 [facility] 20 2-01 [facility] 1 [facility] of mg/actuatio 00:00: nostril as [place] n nasal 00 needed Medical spray (migraine) Branch . midazolam 2022-0 Yes [id number] 5mg Use 5 mg [facility] ([facility]) 2-01 in each ity of 5 mg/spray 00:00: nostril as [place] (0.1 mL) 00 needed [facility] [place] (seizure). Branch levETIRAcet 2022-0 Yes [id number] 1000mg Take 10 mL [facility] ([facility]PPR[facility]) 2-01 by mouth ity of 100 mg/mL 00:00: in the [place] oral 00 morning Medical solution and 10 mL Branch in the evening. SUMAtriptan 2022-0 Yes [id number] 20mg Use 1 [facility] 20 2-01 [facility] 1 [facility] of mg/actuatio 00:00: nostril as [place] n nasal 00 needed Medical spray (migraine) Branch . midazolam 2022-0 Yes [id number] 5mg Use 5 mg [facility] ([facility]) 2-01 in each ity of 5 mg/spray 00:00: nostril as [place] (0.1 mL) 00 needed [facility] [place] (seizure). Branch levETIRAcet 2022-0 Yes [id number] 1000mg Take 10 mL [facility] (KEPPRA) 2-01 by mouth ity of 100 mg/mL 00:00: in the [place] oral 00 morning Medical solution and 10 mL Branch in the evening. SUMAtriptan 2022-0 Yes [id number] 20mg Use 1 [facility] 20 2-01 [facility] 1 [facility] of mg/actuatio 00:00: nostril as [place] n nasal 00 needed Medical spray (migraine) Branch . midazolam 2022-0 Yes [id number] 5mg Use 5 mg [facility] ([facility]) 2-01 in each ity of 5 mg/spray 00:00: nostril as [place] (0.1 mL) 00 needed [facility] [place] (seizure). Branch levETIRAcet 2022-0 Yes [id number] 1000mg Take 10 mL [facility] ([facility]PPRA) 2-01 by mouth ity of 100 mg/mL 00:00: in the [place] oral 00 morning Medical solution and 10 mL Branch in the evening. SUMAtriptan 2022-0 Yes [id number] 20mg Use 1 [facility] 20 2-01 [facility] 1 it[facility] of mg/actuatio 00:00: nostril as [place] n nasal 00 needed Medical spray (migraine) Branch . midazolam 2022-0 Yes [id number] 5mg Use 5 mg [facility] ([facility]IL[facility]) 2-01 in each ity of 5 mg/spray 00:00: nostril as [place] (0.1 mL) 00 needed [facility] [place] (seizure). Branch levETIRAcet 2022-0 Yes [id number] 1000mg Take 10 mL [facility] (KEPPRA) 2-01 by mouth ity of 100 mg/mL 00:00: in the [place] oral 00 morning Medical solution and 10 mL Branch in the evening. SUMAtriptan 2022-0 Yes [id number] 20mg Use 1 [facility] 20 2-01 [facility] 1 [facility] of mg/actuatio 00:00: nostril as [place] n nasal 00 needed Medical spray (migraine) Branch . midazolam 2022-0 Yes [id number] 5mg Use 5 mg [facility] ([facility]ZIL[facility]) 2-01 in each ity of 5 mg/spray 00:00: nostril as [place] (0.1 mL) 00 needed [facility] [place] (seizure). Branch levETIRAcet 2022-0 Yes [id number] 1000mg Take 10 mL [facility] (KEPPRA) 2-01 by mouth ity of 100 mg/mL 00:00: in the [place] oral 00 morning Medical solution and 10 mL Branch in the evening. SUMAtriptan 2022-0 Yes [id number] 20mg Use 1 [facility] 20 2-01 [facility] 1 ity of mg/actuatio 00:00: nostril as [place] n nasal 00 needed Medical spray (migraine) Branch . midazolam 2022-0 Yes [id number] 5mg Use 5 mg [facility] ([facility]IL[facility]) 2-01 in each ity of 5 mg/spray 00:00: nostril as [place] (0.1 mL) 00 needed [facility] [place] (seizure). Branch levETIRAcet 2022-0 Yes [id number] 1000mg Take 10 mL [facility] (KEPPRA) 2-01 by mouth ity of 100 mg/mL 00:00: in the [place] oral 00 morning Medical solution and 10 mL Branch in the evening. SUMAtriptan 2022-0 Yes [id number] 20mg Use 1 [facility] 20 2-01 [facility] 1 ity of mg/actuatio 00:00: nostril as [place] n nasal 00 needed Medical spray (migraine) Branch . midazolam 2022-0 Yes [id number] 5mg Use 5 mg [facility] ([facility]IL[facility]) 2-01 in each ity of 5 mg/spray 00:00: nostril as [place] (0.1 mL) 00 needed [facility] [place] (seizure). Branch levETIRAcet 2022-0 Yes [id number] 1000mg Take 10 mL [facility] (KEPPR[facility]) 2-01 by mouth ity of 100 mg/mL 00:00: in the [place] oral 00 morning Medical solution and 10 mL Branch in the evening. SUMAtriptan 2022-0 Yes [id number] 20mg Use 1 [facility] 20 2-01 [facility] 1 ity of mg/actuatio 00:00: nostril as [place] n nasal 00 needed Medical spray (migraine) Branch . midazolam 2022-0 Yes [id number] 5mg Use 5 mg [facility] ([facility]ZIL[facility]) 2-01 in each ity of 5 mg/spray 00:00: nostril as [place] (0.1 mL) 00 needed [facility] [place] (seizure). Branch levETIRAcet 2022-0 Yes [id number] 1000mg Take 10 mL [facility] (KEPPRA) 2-01 by mouth ity of 100 mg/mL 00:00: in the [place] oral 00 morning Medical solution and 10 mL Branch in the evening. SUMAtriptan 2022-0 Yes [id number] 20mg Use 1 [facility] 20 2-01 [facility] 1 ity of mg/actuatio 00:00: nostril as [place] n nasal 00 needed Medical spray (migraine) Branch . midazolam 2022-0 Yes [id number] 5mg Use 5 mg [facility] ([facility]IL[facility]) 2-01 in each ity of 5 mg/spray 00:00: nostril as [place] (0.1 mL) 00 needed [facility] [place] (seizure). Branch levETIRAcet 0 Yes [id number] 1000mg Take 10 mL [facility] (KEPPRA) 2-01 by mouth ity of 100 mg/mL 00:00: in the [place] oral 00 morning Medical solution and 10 mL Branch in the evening. SUMAtriptan 2022-0 Yes [id number] 20mg Use 1 [facility] 20 2-01 [facility] 1 ity of mg/actuatio 00:00: nostril as [place] n nasal 00 needed Medical spray (migraine) Branch . midazolam 2022-0 Yes [id number] 5mg Use 5 mg [facility] ([facility]ZIL[facility]) 2-01 in each ity of 5 mg/spray 00:00: nostril as [place] (0.1 mL) 00 needed [facility] [place] (seizure). Branch levETIRAcet 0 Yes [id number] 1000mg Take 10 mL [facility] (KEPPRA) 2-01 by mouth ity of 100 mg/mL 00:00: in the [place] oral 00 morning Medical solution and 10 mL Branch in the evening. SUMAtriptan 2022-0 Yes [id number] 20mg Use 1 [facility] 20 2-01 [facility] 1 ity of mg/actuatio 00:00: nostril as [place] n nasal 00 needed Medical spray (migraine) Branch . midazolam 2022-0 Yes [id number] 5mg Use 5 mg [facility] ([facility]ZIL[facility]) 2-01 in each ity of 5 mg/spray 00:00: nostril as [place] (0.1 mL) 00 needed [facility] [place] (seizure). Branch levETIRAcet 0 Yes [id number] 1000mg Take 10 mL [facility] (KEPPRA) 2-01 by mouth ity of 100 mg/mL 00:00: in the [place] oral 00 morning Medical solution and 10 mL Branch in the evening. SUMAtriptan 2022-0 Yes [id number] 20mg Use 1 [facility] 20 2-01 [facility] 1 ity of mg/actuatio 00:00: nostril as [place] n nasal 00 needed Medical spray (migraine) Branch . midazolam 2022-0 Yes [id number] 5mg Use 5 mg [facility] ([facility]ZIL[facility]) 2-01 in each ity of 5 mg/spray 00:00: nostril as [place] (0.1 mL) 00 needed [facility] [place] (seizure). Branch levETIRAcet 2022-0 Yes [id number] 1000mg Take 10 mL [facility] (KEPPRA) 2-01 by mouth ity of 100 mg/mL 00:00: in the [place] oral 00 morning Medical solution and 10 mL Branch in the evening. SUMAtriptan 2022-0 Yes [id number] 20mg Use 1 [facility] 20 2-01 [facility] 1 ity of mg/actuatio 00:00: nostril as [place] n nasal 00 needed Medical spray (migraine) Branch . midazolam 2022-0 Yes [id number] 5mg Use 5 mg [facility] ([facility]YZILAM) 2-01 in each ity of 5 mg/spray 00:00: nostril as [place] (0.1 mL) 00 needed [facility] [place] (seizure). Branch levETIRAcet 0 Yes [id number] 1000mg Take 10 mL [facility] (KEPPRA) 2-01 by mouth ity of 100 mg/mL 00:00: in the [place] oral 00 morning Medical solution and 10 mL Branch in the evening. SUMAtriptan 2022-0 Yes [id number] 20mg Use 1 [facility] 20 2-01 [facility] in 1 ity of mg/actuatio 00:00: nostril as [place] n nasal 00 needed Medical spray (migraine) Branch . midazolam 2022-0 Yes [id number] 5mg Use 5 mg [facility] (NAYZILAM) 2-01 in each ity of 5 mg/spray 00:00: nostril as [place] (0.1 mL) 00 needed [facility] [place] (seizure). Branch levETIRAcet 2022-0 Yes [id number] 1000mg Take 10 mL [facility] (KEPPRA) 2-01 by mouth ity of 100 mg/mL 00:00: in the [place] oral 00 morning Medical solution and 10 mL Branch in the evening. SUMAtriptan 2022-0 Yes [id number] 20mg Use 1 [facility] 20 2-01 [facility] 1 ity of mg/actuatio 00:00: nostril as [place] n nasal 00 needed Medical spray (migraine) Branch . midazolam 2022-0 Yes [id number] 5mg Use 5 mg [facility] ([facility]YZILAM) 2-01 in each ity of 5 mg/spray 00:00: nostril as [place] (0.1 mL) 00 needed [facility] [place] (seizure). Branch levETIRAcet 2022-0 Yes [id number] 1000mg Take 10 mL [facility] (KEPPRA) 2-01 by mouth ity of 100 mg/mL 00:00: in the [place] oral 00 morning Medical solution and 10 mL Branch in the evening. SUMAtriptan 2022-0 Yes [id number] 20mg Use 1 [facility] 20 2-01 [facility] in 1 ity of mg/actuatio 00:00: nostril as [place] n nasal 00 needed Medical spray (migraine) Branch . midazolam 2022-0 Yes [id number] 5mg Use 5 mg [facility] ([facility]ZIL[facility]) 2-01 in each ity of 5 mg/spray 00:00: nostril as [place] (0.1 mL) 00 needed [facility] [place] (seizure). Branch levETIRAcet 2022-0 Yes [id number] 1000mg Take 10 mL [facility] (KEPPRA) 2-01 by mouth ity of 100 mg/mL 00:00: in the [place] oral 00 morning Medical solution and 10 mL Branch in the evening. SUMAtriptan 2022-0 Yes [id number] 20mg Use 1 [facility] 20 2-01 [facility] in 1 ity of mg/actuatio 00:00: nostril as [place] n nasal 00 needed Medical spray (migraine) Branch . midazolam 2022-0 Yes [id number] 5mg Use 5 mg [facility] ([facility]YZILAM) 2-01 in each ity of 5 mg/spray 00:00: nostril as [place] (0.1 mL) 00 needed [facility] [place] (seizure). Branch levETIRAcet 2022-0 Yes [id number] 1000mg Take 10 mL [facility] (KEPPRA) 2-01 by mouth ity of 100 mg/mL 00:00: in the [place] oral 00 morning Medical solution and 10 mL Branch in the evening. SUMAtriptan 2022-0 Yes [id number] 20mg Use 1 [facility] 20 2-01 [facility] in 1 ity of mg/actuatio 00:00: nostril as [place] n nasal 00 needed Medical spray (migraine) Branch . midazolam 2022-0 Yes [id number] 5mg Use 5 mg [facility] ([facility]IL[facility]) 2-01 in each ity of 5 mg/spray 00:00: nostril as [place] (0.1 mL) 00 needed [facility] [place] (seizure). Branch levETIRAcet 0 Yes [id number] 1000mg Take 10 mL [facility] (KEPPRA) 2-01 by mouth ity of 100 mg/mL 00:00: in the [place] oral 00 morning Medical solution and 10 mL Branch in the evening. SUMAtriptan 2022-0 Yes [id number] 20mg Use 1 [facility] 20 2-01 [facility] in 1 ity of mg/actuatio 00:00: nostril as [place] n nasal 00 needed Medical spray (migraine) Branch . midazolam 2022-0 Yes [id number] 5mg Use 5 mg [facility] ([facility]IL[facility]) 2-01 in each ity of 5 mg/spray 00:00: nostril as [place] (0.1 mL) 00 needed [facility] [place] (seizure). Branch levETIRAcet 2022-0 Yes [id number] 1000mg Take 10 mL [facility] (KEPPRA) 2-01 by mouth ity of 100 mg/mL 00:00: in the [place] oral 00 morning Medical solution and 10 mL Branch in the evening. SUMAtriptan 2022-0 Yes [id number] 20mg Use 1 [facility] 20 2-01 [facility] in 1 ity of mg/actuatio 00:00: nostril as [place] n nasal 00 needed Medical spray (migraine) Branch . midazolam 2022-0 Yes [id number] 5mg Use 5 mg [facility] (NAYZILAM) 2-01 in each ity of 5 mg/spray 00:00: nostril as [place] (0.1 mL) 00 needed [facility] [place] (seizure). Branch levETIRAcet 2022-0 Yes [id number] 1000mg Take 10 mL [facility] (KEPPRA) 2-01 by mouth ity of 100 mg/mL 00:00: in the [place] oral 00 morning Medical solution and 10 mL Branch in the evening. SUMAtriptan 2022-0 Yes [id number] 20mg Use 1 [facility] 20 2-01 [facility] in 1 ity of mg/actuatio 00:00: nostril as [place] n nasal 00 needed Medical spray (migraine) Branch . midazolam 2022-0 Yes [id number] 5mg Use 5 mg [facility] (NA[facility]ZILAM) 2-01 in each ity of 5 mg/spray 00:00: nostril as [place] (0.1 mL) 00 needed [facility] [place] (seizure). Branch levETIRAcet 2022-0 Yes [id number] 1000mg Take 10 mL [facility] (KEPPRA) 2-01 by mouth ity of 100 mg/mL 00:00: in the [place] oral 00 morning Medical solution and 10 mL Branch in the evening. SUMAtriptan 2022-0 Yes [id number] 20mg Use 1 [facility] 20 2-01 [facility] in 1 ity of mg/actuatio 00:00: nostril as [place] n nasal 00 needed Medical spray (migraine) Branch . midazolam 2022-0 Yes [id number] 5mg Use 5 mg [facility] ([facility]ZILAM) 2-01 in each ity of 5 mg/spray 00:00: nostril as [place] (0.1 mL) 00 needed [facility] [place] (seizure). Branch levETIRAcet 2022-0 Yes [id number] 1000mg Take 10 mL [facility] (KEPPRA) 2-01 by mouth ity of 100 mg/mL 00:00: in the [place] oral 00 morning Medical solution and 10 mL Branch in the evening. SUMAtriptan 2022-0 Yes [id number] 20mg Use 1 [facility] 20 2-01 [facility] in 1 ity of mg/actuatio 00:00: nostril as [place] n nasal 00 needed Medical spray (migraine) Branch . midazolam 2022-0 Yes [id number] 5mg Use 5 mg [facility] (NAYZILAM) 2-01 in each ity of 5 mg/spray 00:00: nostril as [place] (0.1 mL) 00 needed [facility] [place] (seizure). Branch levETIRAcet 2022-0 Yes [id number] 1000mg Take 10 mL [facility] (KEPPRA) 2-01 by mouth ity of 100 mg/mL 00:00: in the [place] oral 00 morning Medical solution and 10 mL Branch in the evening. SUMAtriptan 2022-0 Yes [id number] 20mg Use 1 [facility] 20 2-01 [facility] in 1 ity of mg/actuatio 00:00: nostril as [place] n nasal 00 needed Medical spray (migraine) Branch . midazolam 2022-0 Yes [id number] 5mg Use 5 mg [facility] (NAYZILAM) 2-01 in each ity of 5 mg/spray 00:00: nostril as [place] (0.1 mL) 00 needed [facility] [place] (seizure). Branch levETIRAcet 2022-0 Yes [id number] 1000mg Take 10 mL [facility] (KEPPRA) 2-01 by mouth ity of 100 mg/mL 00:00: in the [place] oral 00 morning Medical solution and 10 mL Branch in the evening. SUMAtriptan 2022-0 Yes [id number] 20mg Use 1 [facility] 20 2-01 [facility] in 1 ity of mg/actuatio 00:00: nostril as [place] n nasal 00 needed Medical spray (migraine) Branch . midazolam 2022-0 Yes [id number] 5mg Use 5 mg [facility] (NAYZILAM) 2-01 in each ity of 5 mg/spray 00:00: nostril as [place] (0.1 mL) 00 needed [facility] [place] (seizure). Branch levETIRAcet 2022-0 Yes [id number] 1000mg Take 10 mL [facility] (KEPPRA) 2-01 by mouth ity of 100 mg/mL 00:00: in the [place] oral 00 morning Medical solution and 10 mL Branch in the evening. SUMAtriptan 2022-0 Yes [id number] 20mg Use 1 [facility] 20 2-01 [facility] in 1 ity of mg/actuatio 00:00: nostril as [place] n nasal 00 needed Medical spray (migraine) Branch . midazolam 2022-0 Yes [id number] 5mg Use 5 mg [facility] (NAYZILAM) 2-01 in each ity of 5 mg/spray 00:00: nostril as [place] (0.1 mL) 00 needed [facility] [place] (seizure). Branch levETIRAcet 2022-0 Yes [id number] 1000mg Take 10 mL [facility] (KEPPRA) 2-01 by mouth ity of 100 mg/mL 00:00: in the [place] oral 00 morning Medical solution and 10 mL Branch in the evening. SUMAtriptan 2022-0 Yes [id number] 20mg Use 1 [facility] 20 2-01 [facility] in 1 ity of mg/actuatio 00:00: nostril as [place] n nasal 00 needed Medical spray (migraine) Branch . midazolam 2022-0 Yes [id number] 5mg Use 5 mg [facility] (NAYZILAM) 2-01 in each ity of 5 mg/spray 00:00: nostril as [place] (0.1 mL) 00 needed [facility] [place] (seizure). Branch levETIRAcet 2022-0 Yes [id number] 1000mg Take 10 mL [facility] (KEPPRA) 2-01 by mouth ity of 100 mg/mL 00:00: in the [place] oral 00 morning Medical solution and 10 mL Branch in the evening. SUMAtriptan 2022-0 Yes [id number] 20mg Use 1 [facility] 20 2-01 [facility] in 1 [facility]y of mg/actuatio 00:00: nostril as [place] n nasal 00 needed Medical spray (migraine) Branch . midazolam 2022-0 Yes [id number] 5mg Use 5 mg [facility] ([facility]ZIL[facility]) 2-01 in each ity of 5 mg/spray 00:00: nostril as [place] (0.1 mL) 00 needed [facility] [place] (seizure). Branch levETIRAcet 2022-0 Yes [id number] 1000mg Take 10 mL [facility] (KEPPR[facility]) 2-01 by mouth ity of 100 mg/mL 00:00: in the [place] oral 00 morning Medical solution and 10 mL Branch in the evening. SUMAtriptan 2022-0 Yes [id number] 20mg Use 1 [facility] 20 2-01 [facility] in 1 ity of mg/actuatio 00:00: nostril as [place] n nasal 00 needed Medical spray (migraine) Branch . midazolam 2022-0 Yes [id number] 5mg Use 5 mg [facility] (NA[facility]ZIL[facility]) 2-01 in each ity of 5 mg/spray 00:00: nostril as [place] (0.1 mL) 00 needed [facility] [place] (seizure). Branch levETIRAcet 2022-0 Yes [id number] 1000mg Take 10 mL [facility] (KEPPRA) 2-01 by mouth ity of 100 mg/mL 00:00: in the [place] oral 00 morning Medical solution and 10 mL Branch in the evening. SUMAtriptan 2022-0 Yes [id number] 20mg Use 1 [facility] 20 2-01 [facility] in 1 ity of mg/actuatio 00:00: nostril as [place] n nasal 00 needed Medical spray (migraine) Branch . midazolam 2022-0 Yes [id number] 5mg Use 5 mg [facility] ([facility]ZILAM) 2-01 in each ity of 5 mg/spray 00:00: nostril as [place] (0.1 mL) 00 needed [facility] [place] (seizure). Branch levETIRAcet 2022-0 Yes [id number] 1000mg Take 10 mL [facility] (KEPPRA) 2-01 by mouth ity of 100 mg/mL 00:00: in the [place] oral 00 morning Medical solution and 10 mL Branch in the evening. SUMAtriptan 2022-0 Yes [id number] 20mg Use 1 [facility] 20 2-01 [facility] 1 [facility]y of mg/actuatio 00:00: nostril as [place] n nasal 00 needed Medical spray (migraine) Branch . midazolam 2022-0 Yes [id number] 5mg Use 5 mg [facility] ([facility]ZIL[facility]) 2-01 in each ity of 5 mg/spray 00:00: nostril as [place] (0.1 mL) 00 needed [facility] [place] (seizure). Branch levETIRAcet 2022-0 Yes [id number] 1000mg Take 10 mL [facility] (KEPPR[facility]) 2-01 by mouth ity of 100 mg/mL 00:00: in the [place] oral 00 morning Medical solution and 10 mL Branch in the evening. SUMAtriptan 2022-0 Yes [id number] 20mg Use 1 [facility] 20 2-01 [facility] in 1 [facility]y of mg/actuatio 00:00: nostril as [place] n nasal 00 needed Medical spray (migraine) Branch . midazolam 2022-0 Yes [id number] 5mg Use 5 mg [facility] ([facility]ZILAM) 2-01 in each ity of 5 mg/spray 00:00: nostril as [place] (0.1 mL) 00 needed [facility] [place] (seizure). Branch levETIRAcet 2022-0 Yes [id number] 1000mg Take 10 mL [facility] (KEPPRA) 2-01 by mouth ity of 100 mg/mL 00:00: in the [place] oral 00 morning Medical solution and 10 mL Branch in the evening. SUMAtriptan 2022-0 Yes [id number] 20mg Use 1 [facility] 20 2-01 [facility] in 1 [facility]y of mg/actuatio 00:00: nostril as [place] n nasal 00 needed Medical spray (migraine) Branch . midazolam 2022-0 Yes [id number] 5mg Use 5 mg [facility] ([facility]ZILAM) 2-01 in each ity of 5 mg/spray 00:00: nostril as [place] (0.1 mL) 00 needed [facility] [place] (seizure). Branch levETIRAcet 2022-0 Yes [id number] 1000mg Take 10 mL [facility] (KEPPRA) 2-01 by mouth ity of 100 mg/mL 00:00: in the [place] oral 00 morning Medical solution and 10 mL Branch in the evening. SUMAtriptan 2022-0 Yes [id number] 20mg Use 1 [facility] 20 2-01 [facility] in 1 ity of mg/actuatio 00:00: nostril as [place] n nasal 00 needed Medical spray (migraine) Branch . midazolam 2022-0 Yes [id number] 5mg Use 5 mg [facility] ([facility]ZIL[facility]) 2-01 in each ity of 5 mg/spray 00:00: nostril as [place] (0.1 mL) 00 needed [facility] [place] (seizure). Branch levETIRAcet 2022-0 Yes [id number] 1000mg Take 10 mL [facility] (KEPPRA) 2-01 by mouth ity of 100 mg/mL 00:00: in the [place] oral 00 morning Medical solution and 10 mL Branch in the evening. SUMAtriptan 2022-0 Yes [id number] 20mg Use 1 [facility] 20 2-01 [facility] in 1 ity of mg/actuatio 00:00: nostril as [place] n nasal 00 needed Medical spray (migraine) Branch . midazolam 2023-0 Yes [id number] 5mg Use 5 mg [facility] (NAYZILAM) 2-01 in each ity of 5 mg/spray 00:00: nostril as [place] (0.1 mL) 00 needed [facility] [place] (seizure). Branch levETIRAcet Yes [id number] 1000mg Take 10 mL [facility] (KEPPRA) 2-01 by mouth ity of 100 mg/mL 00:00: in the [place] oral 00 morning Medical solution and 10 mL Branch in the evening. midazolam Yes [id number] 5mg Use 5 mg [facility] (NA[facility]ZILAM) 2-01 in each ity of 5 mg/spray 00:00: nostril as [place] (0.1 mL) 00 needed [facility] [place] (seizure). Branch levETIRAcet Yes [id number] 1000mg Take 10 mL [facility] (KEPPRA) 2-01 by mouth ity of 100 mg/mL 00:00: in the [place] oral 00 morning Medical solution and 10 mL Branch in the evening. midazolam Yes [id number] 5mg Use 5 mg [facility] (NAYZILAM) 2-01 in each ity of 5 mg/spray 00:00: nostril as [place] (0.1 mL) 00 needed [facility] [place] (seizure). Branch levETIRAcet Yes [id number] 1000mg Take 10 mL [facility] (KEPPRA) 2-01 by mouth ity of 100 mg/mL 00:00: in the [place] oral 00 morning Medical solution and 10 mL Branch in the evening. midazolam 0 Yes [id number] 5mg Use 5 mg [facility] ([facility]ZILAM) 2-01 in each ity of 5 mg/spray 00:00: nostril as [place] (0.1 mL) 00 needed [facility] [place] (seizure). Branch levETIRAcet Yes [id number] 1000mg Take 10 mL [facility] (KEPPRA) 2-01 by mouth ity of 100 mg/mL 00:00: in the [place] oral 00 morning Medical solution and 10 mL Branch in the evening. midazolam 0 Yes [id number] 5mg Use 5 mg [facility] (NA[facility]ZILAM) 2-01 in each ity of 5 mg/spray 00:00: nostril as [place] (0.1 mL) 00 needed [facility] [place] (seizure). Branch levETIRAcet 0 Yes [id number] 1000mg Take 10 mL [facility] (KEPPRA) 2-01 by mouth ity of 100 mg/mL 00:00: in the [place] oral 00 morning Medical solution and 10 mL Branch in the evening. midazolam 0 Yes [id number] 5mg Use 5 mg [facility] ([facility]ZIL[facility]) 2-01 in each ity of 5 mg/spray 00:00: nostril as [place] (0.1 mL) 00 needed [facility] [place] (seizure). Branch levETIRAcet 0 Yes [id number] 1000mg Take 10 mL [facility] (KEPPRA) 2-01 by mouth ity of 100 mg/mL 00:00: in the [place] oral 00 morning Medical solution and 10 mL Branch in the evening. midazolam 0 Yes [id number] 5mg Use 5 mg [facility] ([facility]IL[facility]) 2-01 in each ity of 5 mg/spray 00:00: nostril as [place] (0.1 mL) 00 needed [facility] [place] (seizure). Branch levETIRAcet Yes [id number] 1000mg Take 10 mL [facility] (KEPPRA) 2-01 by mouth ity of 100 mg/mL 00:00: in the [place] oral 00 morning Medical solution and 10 mL Branch in the evening. midazolam 0 Yes [id number] 5mg Use 5 mg [facility] (NA[facility]ZIL[facility]) 2-01 in each ity of 5 mg/spray 00:00: nostril as [place] (0.1 mL) 00 needed [facility] [place] (seizure). Branch levETIRAcet 0 Yes [id number] 1000mg Take 10 mL [facility] (KEPPRA) 2-01 by mouth ity of 100 mg/mL 00:00: in the [place] oral 00 morning Medical solution and 10 mL Branch in the evening. midazolam 0 Yes [id number] 5mg Use 5 mg [facility] ([facility]ZIL[facility]) 2-01 in each ity of 5 mg/spray 00:00: nostril as [place] (0.1 mL) 00 needed [facility] [place] (seizure). Branch levETIRAcet Yes [id number] 1000mg Take 10 mL [facility] (KEPPRA) 2-01 by mouth ity of 100 mg/mL 00:00: in the [place] oral 00 morning Medical solution and 10 mL Branch in the evening. midazolam Yes [id number] 5mg Use 5 mg [facility] (NAYZILAM) 2-01 in each ity of 5 mg/spray 00:00: nostril as [place] (0.1 mL) 00 needed [facility] (seizure). Branch levETIRAcet Yes [id number] 1000mg Take 10 mL [facility] ([facility]PPR[facility]) 2-01 by mouth ity of 100 mg/mL 00:00: in the [place] oral 00 morning Medical solution and 10 mL Branch in the evening. midazolam Yes [id number] 5mg Use 5 mg [facility] (NAYZILAM) 2-01 in each ity of 5 mg/spray 00:00: nostril as [place] (0.1 mL) 00 needed [facility] [place] (seizure). Branch levETIRAcet Yes [id number] 1000mg Take 10 mL [facility] am (KEPPRA) 2-01 by mouth ity of 100 mg/mL 00:00: in the [place] oral 00 morning Medical solution and 10 mL Branch in the evening. midazolam Yes [id number] 5mg Use 5 mg [facility] (NAYZILAM) 2-01 in each ity of 5 mg/spray 00:00: nostril as [place] (0.1 mL) 00 needed [facility] [place] (seizure). Branch levETIRAcet Yes [id number] 1000mg Take 10 mL [facility] am (KEPPRA) 2-01 by mouth ity of 100 mg/mL 00:00: in the [place] oral 00 morning Medical solution and 10 mL Branch in the evening. midazolam Yes [id number] 5mg Use 5 mg [facility] (NAYZILAM) 2-01 in each ity of 5 mg/spray 00:00: nostril as [place] (0.1 mL) 00 needed [facility] (seizure). Branch levETIRAcet Yes [id number] 1000mg Take 10 mL [facility] am (KEPPRA) 2-01 by mouth ity of 100 mg/mL 00:00: in the [place] oral 00 morning Medical solution and 10 mL Branch in the evening. midazolam Yes [id number] 5mg Use 5 mg [facility] (NAYZILAM) 2-01 in each ity of 5 mg/spray 00:00: nostril as [place] (0.1 mL) 00 needed [facility] [place] (seizure). Branch levETIRAcet 0 Yes [id number] 1000mg Take 10 mL [facility] am (KEPPRA) 2-01 by mouth ity of 100 mg/mL 00:00: in the [place] oral 00 morning Medical solution and 10 mL Branch in the evening. midazolam 0 Yes [id number] 5mg Use 5 mg [facility] (NAYZILAM) 2-01 in each ity of 5 mg/spray 00:00: nostril as [place] (0.1 mL) 00 needed [facility] [place] (seizure). Branch levETIRAcet Yes [id number] 1000mg Take 10 mL [facility] am (KEPPRA) 2-01 by mouth ity of 100 mg/mL 00:00: in the [facility] 00 morning Medical solution and 10 mL Branch in the evening. midazolam Yes [id number] 5mg Use 5 mg [facility] (NAYZILAM) 2-01 in each ity of 5 mg/spray 00:00: nostril as [place] (0.1 mL) 00 needed [facility] [place] (seizure). Branch levETIRAcet Yes [id number] 1000mg Take 10 mL [facility] am (KEPPRA) 2-01 by mouth ity of 100 mg/mL 00:00: in the [place] oral 00 morning Medical solution and 10 mL Branch in the evening. midazolam 0 Yes [id number] 5mg Use 5 mg [facility] (NAYZILAM) 2-01 in each ity of 5 mg/spray 00:00: nostril as [place] (0.1 mL) 00 needed [facility] [place] (seizure). Branch levETIRAcet 0 Yes [id number] 1000mg Take 10 mL [facility] am (KEPPRA) 2-01 by mouth ity of 100 mg/mL 00:00: in the [place] oral 00 morning Medical solution and 10 mL Branch in the evening. midazolam 0 Yes [id number] 5mg Use 5 mg [facility] (NAYZILAM) 2-01 in each ity of 5 mg/spray 00:00: nostril as [place] (0.1 mL) 00 needed [facility] [place] (seizure). Branch levETIRAcet 0 Yes [id number] 1000mg Take 10 mL [facility] am (KEPPRA) 2-01 by mouth ity of 100 mg/mL 00:00: in the [place] oral 00 morning Medical solution and 10 mL Branch in the evening. midazolam 0 Yes [id number] 5mg Use 5 mg [facility] (NAYZILAM) 2-01 in each ity of 5 mg/spray 00:00: nostril as [place] (0.1 mL) 00 needed [facility] [place] (seizure). Branch levETIRAcet 0 Yes [id number] 1000mg Take 10 mL [facility] am (KEPPRA) 2-01 by mouth ity of 100 mg/mL 00:00: in the [place] oral 00 morning Medical solution and 10 mL Branch in the evening. midazolam 2022-0 Yes [id number] 5mg Use 5 mg [facility] (NAYZILAM) 2-01 in each ity of 5 mg/spray 00:00: nostril as [place] (0.1 mL) 00 needed [facility] [place] (seizure). Branch levETIRAcet 0 Yes [id number] 1000mg Take 10 mL [facility] am (KEPPRA) 2-01 by mouth ity of 100 mg/mL 00:00: in the [place] oral 00 morning Medical solution and 10 mL Branch in the evening. midazolam 2022-0 Yes [id number] 5mg Use 5 mg [facility] (NAYZILAM) 2-01 in each ity of 5 mg/spray 00:00: nostril as [place] (0.1 mL) 00 needed [facility] [place] (seizure). Branch levETIRAcet 0 Yes [id number] 1000mg Take 10 mL [facility] am (KEPPRA) 2-01 by mouth ity of 100 mg/mL 00:00: in the [place] oral 00 morning Medical solution and 10 mL Branch in the evening. midazolam 2023-0 Yes [id number] 5mg Use 5 mg [facility] (NAYZILAM) 2-01 in each ity of 5 mg/spray 00:00: nostril as [place] (0.1 mL) 00 needed [facility] [place] (seizure). Branch levETIRAcet 0 Yes [id number] 1000mg Take 10 mL [facility] am (KEPPRA) 2-01 by mouth ity of 100 mg/mL 00:00: in the [place] oral 00 morning Medical solution and 10 mL Branch in the evening. midazolam 0 Yes [id number] 5mg Use 5 mg [facility] (NAYZILAM) 2-01 in each ity of 5 mg/spray 00:00: nostril as [place] (0.1 mL) 00 needed [facility] [place] (seizure). Branch levETIRAcet 0 Yes [id number] 1000mg Take 10 mL [facility] am (KEPPRA) 2-01 by mouth ity of 100 mg/mL 00:00: in the [place] oral 00 morning Medical solution and 10 mL Branch in the evening. midazolam 2022-0 Yes [id number] 5mg Use 5 mg [facility] (NAYZILAM) 2-01 in each ity of 5 mg/spray 00:00: nostril as [place] (0.1 mL) 00 needed [facility] (seizure). Branch levETIRAcet 0 Yes [id number] 1000mg Take 10 mL [facility] am (KEPPRA) 2-01 by mouth ity of 100 mg/mL 00:00: in the [place] oral 00 morning Medical solution and 10 mL Branch in the evening. midazolam 0 Yes [id number] 5mg Use 5 mg [facility] (NAYZILAM) 2-01 in each ity of 5 mg/spray 00:00: nostril as [place] (0.1 mL) 00 needed [facility] [place] (seizure). Branch levETIRAcet 0 Yes [id number] 1000mg Take 10 mL [facility] am (KEPPRA) 2-01 by mouth ity of 100 mg/mL 00:00: in the [place] oral 00 morning Medical solution and 10 mL Branch in the evening. midazolam 2022-0 Yes [id number] 5mg Use 5 mg [facility] (NAYZILAM) 2-01 in each ity of 5 mg/spray 00:00: nostril as [place] (0.1 mL) 00 needed [facility] [place] (seizure). Branch levETIRAcet Yes [id number] 1000mg Take 10 mL [facility] am (KEPPRA) 2-01 by mouth ity of 100 mg/mL 00:00: in the [place] oral 00 morning Medical solution and 10 mL Branch in the evening. midazolam Yes [id number] 5mg Use 5 mg [facility] (NAYZILAM) 2-01 in each ity of 5 mg/spray 00:00: nostril as [place] (0.1 mL) 00 needed [facility] [place] (seizure). Branch levETIRAcet Yes [id number] 1000mg Take 10 mL [facility] am (KEPPRA) 2-01 by mouth ity of 100 mg/mL 00:00: in the [place] oral 00 morning Medical solution and 10 mL Branch in the evening. midazolam Yes [id number] 5mg Use 5 mg [facility] (NAYZILAM) 2-01 in each ity of 5 mg/spray 00:00: nostril as [place] (0.1 mL) 00 needed [facility] (seizure). Branch levETIRAcet Yes [id number] 1000mg Take 10 mL [facility] am (KEPPRA) 2-01 by mouth ity of 100 mg/mL 00:00: in the [place] oral 00 morning Medical solution and 10 mL Branch in the evening. midazolam Yes [id number] 5mg Use 5 mg [facility] (NAYZILAM) 2-01 in each ity of 5 mg/spray 00:00: nostril as [place] (0.1 mL) 00 needed [facility] (seizure). Branch levETIRAcet Yes [id number] 1000mg Take 10 mL [facility] am (KEPPRA) 2-01 by mouth ity of 100 mg/mL 00:00: in the [place] oral 00 morning Medical solution and 10 mL Branch in the evening. midazolam 0 Yes [id number] 5mg Use 5 mg [facility] (NAYZILAM) 2-01 in each ity of 5 mg/spray 00:00: nostril as [place] (0.1 mL) 00 needed [facility] (seizure). Branch levETIRAcet Yes [id number] 1000mg Take 10 mL [facility] am (KEPPRA) 2-01 by mouth ity of 100 mg/mL 00:00: in the [place] [address] morning Medical solution and 10 mL Branch in the evening. midazolam Yes [id number] 5mg Use 5 mg [facility] (NAYZILAM) 2-01 in each ity of 5 mg/spray 00:00: nostril as [place] (0.1 mL) 00 needed [facility] (seizure). [place] midazolam Yes [id number] 5mg Use 5 mg [facility] (NAYZILAM) 2-01 in each ity of 5 mg/spray 00:00: nostril as [place] (0.1 mL) 00 needed [facility] (seizure). [place] midazolam Yes [id number] 5mg Use 5 mg [facility] (NAYZILAM) 2-01 in each ity of 5 mg/spray 00:00: nostril as [place] (0.1 mL) 00 needed [facility] (seizure). [place] midazolam Yes [id number] 5mg Use 5 mg [facility] (NAYZILAM) 2-01 in each ity of 5 mg/spray 00:00: nostril as [place] (0.1 mL) 00 needed [facility] (seizure). [place] midazolam Yes [id number] 5mg Use 5 mg [facility] (NAYZILAM) 2-01 in each ity of 5 mg/spray 00:00: nostril as [place] (0.1 mL) 00 needed [facility] (seizure). [place] midazolam Yes [id number] 5mg Use 5 mg [facility] (NAYZILAM) 2-01 in each ity of 5 mg/spray 00:00: nostril as [place] (0.1 mL) 00 needed [facility] (seizure). Branch midazolam Yes [id number] 5mg Use 5 mg [facility] (NAYZILAM) 2-01 in each ity of 5 mg/spray 00:00: nostril as [place] (0.1 mL) 00 needed [facility] (seizure). Branch midazolam Yes [id number] 5mg Use 5 mg [facility] (NAYZILAM) 2-01 in each ity of 5 mg/spray 00:00: nostril as [place] (0.1 mL) 00 needed [facility] (seizure). Branch midazolam Yes [id number] 5mg Use 5 mg [facility] (NAYZILAM) 2-01 in each ity of 5 mg/spray 00:00: nostril as [place] (0.1 mL) 00 needed [facility] (seizure). Branch midazolam Yes [id number] 5mg Use 5 mg [facility] (NAYZILAM) 2-01 in each ity of 5 mg/spray 00:00: nostril as [place] (0.1 mL) 00 needed [facility] (seizure). Branch midazolam Yes [id number] 5mg Use 5 mg [facility] (NAYZILAM) 2-01 in each ity of 5 mg/spray 00:00: nostril as [place] (0.1 mL) 00 needed [facility] (seizure). Branch midazolam Yes [id number] 5mg Use 5 mg [facility] (NAYZILAM) 2-01 in each ity of 5 mg/spray 00:00: nostril as [place] (0.1 mL) 00 needed [facility] (seizure). Branch midazolam Yes [id number] 5mg Use 5 mg [facility] (NAYZILAM) 2-01 in each ity of 5 mg/spray 00:00: nostril as [place] (0.1 mL) 00 needed [facility] (seizure). Branch midazolam Yes [id number] 5mg Use 5 mg [facility] (NAYZILAM) 2-01 in each ity of 5 mg/spray 00:00: nostril as [place] (0.1 mL) 00 needed [facility] (seizure). Branch midazolam Yes [id number] 5mg Use 5 mg [facility] (NAYZILAM) 2-01 in each ity of 5 mg/spray 00:00: nostril as [place] (0.1 mL) 00 needed [facility] (seizure). Branch midazolam Yes [id number] 5mg Use 5 mg [facility] (NAYZILAM) 2-01 in each ity of 5 mg/spray 00:00: nostril as [place] (0.1 mL) 00 needed [facility] (seizure). Branch midazolam Yes [id number] 5mg Use 5 mg [facility] (NAYZILAM) 2-01 in each ity of 5 mg/spray 00:00: nostril as [place] (0.1 mL) 00 needed [facility] (seizure). Branch midazolam Yes [id number] 5mg Use 5 mg [facility] (NAYZILAM) 2-01 in each ity of 5 mg/spray 00:00: nostril as [place] (0.1 mL) 00 needed [facility] (seizure). Branch midazolam Yes [id number] 5mg Use 5 mg [facility] (NAYZILAM) 2-01 in each ity of 5 mg/spray 00:00: nostril as [place] (0.1 mL) 00 needed [facility] (seizure). Branch midazolam Yes [id number] 5mg Use 5 mg [facility] (NAYZILAM) 2-01 in each ity of 5 mg/spray 00:00: nostril as [place] (0.1 mL) 00 needed [facility] (seizure). Branch midazolam Yes [id number] 5mg Use 5 mg [facility] (NAYZILAM) 2-01 in each ity of 5 mg/spray 00:00: nostril as [place] (0.1 mL) 00 needed [facility] (seizure). Branch midazolam Yes [id number] 5mg Use 5 mg [facility] (NAYZILAM) 2-01 in each ity of 5 mg/spray 00:00: nostril as [place] (0.1 mL) 00 needed [facility] (seizure). Branch midazolam Yes [id number] 5mg Use 5 mg [facility] (NAYZILAM) 2-01 in each ity of 5 mg/spray 00:00: nostril as [place] (0.1 mL) 00 needed [facility] (seizure). Branch midazolam Yes [id number] 5mg Use 5 mg [facility] (NAYZILAM) 2-01 in each ity of 5 mg/spray 00:00: nostril as [place] (0.1 mL) 00 needed [facility] (seizure). Branch midazolam Yes [id number] 5mg Use 5 mg [facility] (NAYZILAM) 2-01 in each ity of 5 mg/spray 00:00: nostril as [place] (0.1 mL) 00 needed [facility] (seizure). Branch midazolam Yes [id number] 5mg Use 5 mg [facility] (NAYZILAM) 2-01 in each ity of 5 mg/spray 00:00: nostril as [place] (0.1 mL) 00 needed [facility] (seizure). Branch midazolam Yes [id number] 5mg Use 5 mg [facility] (NAYZILAM) 2-01 in each ity of 5 mg/spray 00:00: nostril as [place] (0.1 mL) 00 needed [facility] (seizure). Branch midazolam Yes [id number] 5mg Use 5 mg [facility] (NAYZILAM) 2-01 in each ity of 5 mg/spray 00:00: nostril as [place] (0.1 mL) 00 needed [facility] (seizure). Branch midazolam Yes [id number] 5mg Use 5 mg [facility] (NAYZILAM) 2-01 in each ity of 5 mg/spray 00:00: nostril as [place] (0.1 mL) 00 needed [facility] (seizure). Branch midazolam Yes [id number] 5mg Use 5 mg [facility] (NAYZILAM) 2-01 in each ity of 5 mg/spray 00:00: nostril as [place] (0.1 mL) 00 needed [facility] (seizure). Branch midazolam Yes [id number] 5mg Use 5 mg [facility] (NAYZILAM) 2-01 in each ity of 5 mg/spray 00:00: nostril as [place] (0.1 mL) 00 needed [facility] (seizure). Branch midazolam Yes [id number] 5mg Use 5 mg [facility] (NAYZILAM) 2-01 in each ity of 5 mg/spray 00:00: nostril as [place] (0.1 mL) 00 needed [facility] (seizure). Branch midazolam Yes [id number] 5mg Use 5 mg [facility] (NAYZILAM) 08-19 in each ity of 5 mg/spray 00:00: nostril as [place] (0.1 mL) 00 needed [facility] (seizure). Branch midazolam 2022- No [id number] 5mg Use 5 mg [facility] (NAYZILAM) 08-19 in each ity o f 5 mg/spray 00:00: 00:00 nostril as [place] (0.1 mL) 00 :00 needed [facility] (seizure). Branch midazolam 2022- No [id number] 5mg Use 5 mg [facility] (NAYZILAM) 08-19 in each ity o f 5 mg/spray 00:00: 00:00 nostril as [place] (0.1 mL) 00 :00 needed [facility] (seizure). Branch levETIRAcet 2022- No [id number] 1000mg Take 10 mL [facility] am (KEPPRA) 08-19 by mouth ity of 100 mg/mL 00:00: 00:00 in the [place] oral 00 :00 morning Medical solution and 10 mL Branch in the evening. SUMAtriptan 2022- No [id number] 20mg Use 1 [facility] 20 08-19 06-05 [place] in 1 ity of mg/actuatio 00:00: 00:00 nostril as [place] n nasal 00 :00 needed Medical spray (migraine) Branch . SUMAtriptan 2022- No [id number] 20mg Use 1 [facility] 20 08-19 06-05 [place] in 1 ity of mg/actuatio 00:00: 00:00 nostril as [place] n nasal 00 :00 needed Medical spray (migraine) Branch . SUMAtriptan 2022- No [id number] 20mg Use 1 [facility] 20 - 06-05 [place] in 1 ity of mg/actuatio 00:00: 00:00 nostril as [place] n nasal 00 :00 needed Medical spray (migraine) Branch . cariprazine Yes 1.5mg Take 1.5 U nivers [...] OR FOR WHEEZING/S HORTNESS OF BREATH. levalbutero 2022- No INHALE 2 U nivers l (XOPENEX 1-31 08-07 PUFFS BY ity of HFA) 45 00:00: 00:00 MOUTH [place] mcg/actuati 00 :00 EVERY 6 Medic al on inhaler HOURS Branc h NEEDED BEFORE EXERCISE OR FOR WHEEZING/S HORTNESS OF BREATH. levalbutero 2022- No INHALE 2 U nivers l (XOPENEX 1-31 08-07 PUFFS BY ity of HFA) 45 00:00: 00:00 MOUTH [place] mcg/actuati 00 :00 EVERY 6 Medic al on inhaler HOURS Branc h NEEDED BEFORE EXERCISE OR FOR WHEEZING/S HORTNESS OF BREATH. ciprofloxac 2023-0 2023- No [id number] 500mg Take 10 mL [facility] in (CIPRO) 08-18 by mouth ity of 250 mg/5 mL 00:00: 05:59 every 12 [place] suspension 00 :00 (twelve) Medic al hours for Branch 5 days. ciprofloxac 2023-0 2023- No [id number] 500mg Take 10 mL [facility] in (CIPRO) 08-18 by mouth ity of 250 mg/5 mL 00:00: 05:59 every 12 [place] suspension 00 :00 (twelve) Medic al hours for Branch 5 days. ciprofloxac 2023-0 2023- No [id number] 500mg Take 10 mL [facility] in (CIPRO) 08-18 by mouth ity of 250 mg/5 mL 00:00: 05:59 every 12 [place] suspension 00 :00 (twelve) Medic al hours for Branch 5 days. ciprofloxac 3-0 2023- No [id number] 500mg Take 10 mL [facility] in (CIPRO) 08-18 by mouth ity of 250 mg/5 mL 00:00: 05:59 every 12 [place] suspension 00 :00 (twelve) Medic al hours for Branch 5 days. ciprofloxac 2023-0 2023- No [id number] 500mg Take 10 mL [facility] in (CIPRO) 08-18 by mouth ity of 250 mg/5 mL 00:00: 05:59 every 12 [place] suspension 00 :00 (twelve) Medic al hours for Branch 5 days. ciprofloxac 2023-0 2023- No [id number] 500mg Take 10 mL [facility] in (CIPRO) 08-18 by mouth ity of 250 mg/5 mL 00:00: 05:59 every 12 [place] suspension 00 :00 (twelve) Medic al hours for Branch 5 days. ciprofloxac 2023-0 2023- No [id number] 500mg Take 10 mL [facility] in (CIPRO) 08-1806 by mouth ity of 250 mg/5 mL 00:00: 05:59 every 12 [place] suspension 00 :00 (twelve) Medic al hours for Branch 5 days. ciprofloxac 3-0 3- No [id number] 500mg Take 10 mL [facility] in (CIPRO) 08-1806 by mouth ity of 250 mg/5 mL 00:00: 05:59 every 12 [place] suspension 00 :00 (twelve) Medic al hours for Branch 5 days. dexamethaso 2023-0 2023- No 12mg Take 120 U nivers ne 0.1 1- 02-03 mL by ity of mg/mL LOW 00:00: 05:59 mouth in [place] as [facility] 00 :00 the Medical ON solution morning Branc h for 2 days. dexamethaso 2023-0 2023- No 12mg Take 120 U nivers ne 0.1 1- 02-03 mL by ity of mg/mL LOW 00:00: 05:59 mouth in [place] as [facility] 00 :00 the Medical ON solution morning Branc h for 2 days. dexamethaso 2023-0 2023- No 12mg Take 120 U nivers ne 0.1 1- 02-03 mL by ity of mg/mL LOW 00:00: 05:59 mouth in [place] as [facility] 00 :00 the Medical ON solution morning Branc h for 2 days. dexamethaso 2023-0 2023- No 12mg Take 120 U nivers ne 0.1 1- 02-03 mL by ity of mg/mL LOW [...] morning Branc h for 2 days. benralizuma 2023-0 Yes [id number] 30mg inject 1 [facility] b (FASENRA 1-24 Pen under ity of PEN) 30 00:00: the skin [place] mg/mL AtIn 00 every 8 Medica l (eight) Branch weeks. benralizuma 2023-0 Yes [id number] 30mg inject 1 [facility] b (FASENRA 1-24 Pen under ity of PEN) 30 00:00: the skin [place] mg/mL AtIn 00 every 8 Medica l (eight) Branch weeks. benralizuma 2023-0 Yes [id number] 30mg inject 1 [facility] b (FASENRA 1-24 Pen under ity of PEN) 30 00:00: the skin [place] mg/mL AtIn 00 every 8 Medica l (eight) Branch weeks. benralizuma 2023-0 Yes [id number] 30mg inject 1 [facility] b (FASENRA 1-24 Pen under ity of PEN) 30 00:00: the skin [place] mg/mL AtIn 00 every 8 Medica l (eight) Branch weeks. benralizuma 3-0 Yes [id number] 30mg inject 1 [facility] b (FASENRA 1-24 Pen under ity of PEN) 30 00:00: the skin [place] mg/mL AtIn 00 every 8 Medica l (eight) Branch weeks. benralizuma 2023-0 Yes [id number] 30mg inject 1 [facility] b (FASENRA 1-24 Pen under ity of PEN) 30 00:00: the skin [place] mg/mL AtIn 00 every 8 Medica l (eight) Branch weeks. benralizuma 2023-0 Yes [id number] 30mg inject 1 [facility] b (FASENRA 1-24 Pen under ity of PEN) 30 00:00: the skin [place] mg/mL AtIn 00 every 8 Medica l (eight) Branch weeks. benralizuma 2023-0 Yes [id number] 30mg inject 1 [facility] b (FASENRA 1-24 Pen under ity of PEN) 30 00:00: the skin [place] mg/mL AtIn 00 every 8 Medica l (eight) Branch weeks. benralizuma 2023-0 Yes [id number] 30mg inject 1 [facility] b (FASENRA 1-24 Pen under ity of PEN) 30 00:00: the skin [place] mg/mL AtIn 00 every 8 Medica l (eight) Branch weeks. benralizuma 2023-0 Yes [id number] 30mg inject 1 [facility] b (FASENRA 1-24 Pen under ity of PEN) 30 00:00: the skin [place] mg/mL AtIn 00 every 8 Medica l (eight) Branch weeks. benralizuma 2023-0 Yes [id number] 30mg inject 1 [facility] b (FASENRA 1-24 Pen under ity of PEN) 30 00:00: the skin [place] mg/mL AtIn 00 every 8 Medica l (eight) Branch weeks. benralizuma 2023-0 Yes [id number] 30mg inject 1 [facility] b (FASENRA 1-24 Pen under ity of PEN) 30 00:00: the skin [place] mg/mL AtIn 00 every 8 Medica l (eight) Branch weeks. benralizuma 2023-0 Yes [id number] 30mg inject 1 [facility] b (FASENRA 1-24 Pen under ity of PEN) 30 00:00: the skin [place] mg/mL AtIn 00 every 8 Medica l (eight) Branch weeks. benralizuma 3-0 Yes [id number] 30mg inject 1 [facility] b (FASENRA 1-24 Pen under ity of PEN) 30 00:00: the skin [place] mg/mL AtIn 00 every 8 Medica l (eight) Branch weeks. benralizuma 2023-0 Yes [id number] 30mg inject 1 [facility] b (FASENRA 1-24 Pen under ity of PEN) 30 00:00: the skin [place] mg/mL AtIn 00 every 8 Medica l (eight) Branch weeks. benralizuma 2023-0 Yes [id number] 30mg inject 1 [facility] b (FASENRA 1-24 Pen under ity of PEN) 30 00:00: the skin [place] mg/mL AtIn 00 every 8 Medica l (eight) Branch weeks. benralizuma 2023-0 Yes [id number] 30mg inject 1 [facility] b (FASENRA 1-24 Pen under ity of PEN) 30 00:00: the skin [place] mg/mL AtIn 00 every 8 Medica l (eight) Branch weeks. benralizuma 2023-0 Yes [id number] 30mg inject 1 [facility] b (FASENRA 1-24 Pen under ity of PEN) 30 00:00: the skin [place] mg/mL AtIn 00 every 8 Medica l (eight) Branch weeks. benralizuma 2023-0 Yes [id number] 30mg inject 1 [facility] b (FASENRA 1-24 Pen under ity of PEN) 30 00:00: the skin [place] mg/mL AtIn 00 every 8 Medica l (eight) Branch weeks. benralizuma 2023-0 Yes [id number] 30mg inject 1 [facility] b (FASENRA 1-24 Pen under ity of PEN) 30 00:00: the skin [place] mg/mL AtIn 00 every 8 Medica l (eight) Branch weeks. benralizuma 2023-0 Yes [id number] 30mg inject 1 [facility] b (FASENRA 1-24 Pen under ity of PEN) 30 00:00: the skin [place] mg/mL AtIn 00 every 8 Medica l (eight) Branch weeks. benralizuma 2023-0 Yes [id number] 30mg inject 1 [facility] b (FASENRA 1-24 Pen under ity of PEN) 30 00:00: the skin [place] mg/mL AtIn 00 every 8 Medica l (eight) Branch weeks. benralizuma 2023-0 Yes [id number] 30mg inject 1 [facility] b (FASENRA 1-24 Pen under ity of PEN) 30 00:00: the skin [place] mg/mL AtIn 00 every 8 Medica l (eight) Branch weeks. benralizuma 2023-0 Yes [id number] 30mg inject 1 [facility] b (FASENRA 1-24 Pen under ity of PEN) 30 00:00: the skin [place] mg/mL AtIn 00 every 8 Medica l (eight) Branch weeks. benralizuma 2023-0 Yes [id number] 30mg inject 1 [facility] b (FASENRA 1-24 Pen under ity of PEN) 30 00:00: the skin [place] mg/mL AtIn 00 every 8 Medica l (eight) Branch weeks. benralizuma 2023-0 Yes [id number] 30mg inject 1 [facility] b (FASENRA 1-24 Pen under ity of PEN) 30 00:00: the skin [place] mg/mL AtIn 00 every 8 Medica l (eight) Branch weeks. benralizuma 2023-0 Yes [id number] 30mg inject 1 [facility] b (FASENRA 1-24 Pen under ity of PEN) 30 00:00: the skin [place] mg/mL AtIn 00 every 8 Medica l (eight) Branch weeks. benralizuma 2023-0 Yes [id number] 30mg inject 1 [facility] b (FASENRA 1-24 Pen under ity of PEN) 30 00:00: the skin [place] mg/mL AtIn 00 every 8 Medica l (eight) Branch weeks. benralizuma 2023-0 Yes [id number] 30mg inject 1 [facility] b (FASENRA 1-24 Pen under ity of PEN) 30 00:00: the skin [place] mg/mL AtIn 00 every 8 Medica l (eight) Branch weeks. benralizuma 2023-0 Yes [id number] 30mg inject 1 [facility] b (FASENRA 1-24 Pen under ity of PEN) 30 00:00: the skin [place] mg/mL AtIn 00 every 8 Medica l (eight) Branch weeks. benralizuma 2023-0 Yes [id number] 30mg inject 1 [facility] b (FASENRA 1-24 Pen under ity of PEN) 30 00:00: the skin [place] mg/mL AtIn 00 every 8 Medica l (eight) Branch weeks. benralizuma 2023-0 Yes [id number] 30mg inject 1 [facility] b (FASENRA 1-24 Pen under ity of PEN) 30 00:00: the skin [place] mg/mL AtIn 00 every 8 Medica l (eight) Branch weeks. benralizuma 2023-0 Yes [id number] 30mg inject 1 [facility] b (FASENRA 1-24 Pen under ity of PEN) 30 00:00: the skin [place] mg/mL AtIn 00 every 8 Medica l (eight) Branch weeks. benralizuma 2023-0 Yes [id number] 30mg inject 1 [facility] b (FASENRA 1-24 Pen under ity of PEN) 30 00:00: the skin [place] mg/mL AtIn 00 every 8 Medica l (eight) Branch weeks. benralizuma 2023-0 Yes [id number] 30mg inject 1 [facility] b (FASENRA 1-24 Pen under ity of PEN) 30 00:00: the skin [place] mg/mL AtIn 00 every 8 Medica l (eight) Branch weeks. benralizuma 2023-0 Yes [id number] 30mg inject 1 [facility] b (FASENRA 1-24 Pen under ity of PEN) 30 00:00: the skin [place] mg/mL AtIn 00 every 8 Medica l (eight) Branch weeks. benralizuma 3-0 Yes [id number] 30mg inject 1 [facility] b (FASENRA 1-24 Pen under ity of PEN) 30 00:00: the skin [place] mg/mL AtIn 00 every 8 Medica l (eight) Branch weeks. benralizuma 3-0 Yes [id number] 30mg inject 1 [facility] b (FASENRA 1-24 Pen under ity of PEN) 30 00:00: the skin [place] mg/mL AtIn 00 every 8 Medica l (eight) Branch weeks. benralizuma 3-0 Yes [id number] 30mg inject 1 [facility] ([facility]ASENRA 1-24 Pen under ity of PEN) 30 00:00: the skin [place] mg/mL AtIn 00 every 8 [facility] (eight) Branch weeks. benralizuma 3-0 Yes [id number] 30mg inject 1 [facility] (FASENRA 1-24 Pen under ity of PEN) 30 00:00: the skin [place] mg/mL AtIn 00 every 8 [facility] (eight) Branch weeks. benralizuma 3-0 Yes [id number] 30mg inject 1 [facility] (FASENRA 1-24 Pen under ity of PEN) 30 00:00: the skin [place] mg/mL AtIn 00 every 8 [facility] (eight) Branch weeks. benralizuma 2023-0 Yes [id number] 30mg inject 1 [facility] ([facility]ASENRA 1-24 Pen under ity of PEN) 30 00:00: the skin [place] mg/mL AtIn 00 every 8 [facility] (eight) Branch weeks. benralizuma 2023-0 Yes [id number] 30mg inject 1 [facility] ([facility]RA 1-24 Pen under [facility]y of PEN) 30 00:00: the skin [place] mg/mL AtIn 00 every 8 [facility] (eight) Branch weeks. benralizuma 2023-0 Yes [id number] 30mg inject 1 [facility] (FASENRA 1-24 Pen under ity of PEN) 30 00:00: the skin [place] mg/mL AtIn 00 every 8 [facility] (eight) Branch weeks. benralizuma 2023-0 Yes [id number] 30mg inject 1 [facility] (FASENRA 1-24 Pen under ity of PEN) 30 00:00: the skin [place] mg/mL AtIn 00 every 8 [facility] (eight) Branch weeks. benralizuma 2023-0 Yes [id number] 30mg inject 1 [facility] (FASENRA 1-24 Pen under ity of PEN) 30 00:00: the skin [place] mg/mL AtIn 00 every 8 [facility] (eight) Branch weeks. benralizuma 2023-0 Yes [id number] 30mg inject 1 [facility] (FASENRA 1-24 Pen under ity of PEN) 30 00:00: the skin [place] mg/mL AtIn 00 every 8 [facility] (eight) Branch weeks. benralizuma 3-0 Yes [id number] 30mg inject 1 [facility] (FASENRA 1-24 Pen under ity of PEN) 30 00:00: the skin [place] mg/mL AtIn 00 every 8 [facility] (eight) Branch weeks. benralizuma 2023-0 Yes [id number] 30mg inject 1 [facility] (FASENRA 1-24 Pen under ity of PEN) 30 00:00: the skin [place] mg/mL AtIn 00 every 8 [facility] (eight) Branch weeks. benralizuma 2023-0 Yes [id number] 30mg inject 1 [facility] (FASENRA 1-24 Pen under ity of PEN) 30 00:00: the skin [place] mg/mL AtIn 00 every 8 [facility] (eight) Branch weeks. benralizuma 2023-0 Yes [id number] 30mg inject 1 [facility] (FASENRA 1-24 Pen under ity of PEN) 30 00:00: the skin [place] mg/mL AtIn 00 every 8 [facility] (eight) Branch weeks. benralizuma 2023-0 Yes [id number] 30mg inject 1 [facility] (FASENRA 1-24 Pen under ity of PEN) 30 00:00: the skin [place] mg/mL AtIn 00 every 8 [facility] (eight) Branch weeks. benralizuma 2023-0 Yes [id number] 30mg inject 1 [facility] (FASENRA 1-24 Pen under ity of PEN) 30 00:00: the skin [place] mg/mL AtIn 00 every 8 [facility] (eight) Branch weeks. benralizuma 2023-0 Yes [id number] 30mg inject 1 [facility] (FASENRA 1-24 Pen under ity of PEN) 30 00:00: the skin [place] mg/mL AtIn 00 every 8 [facility] (eight) Branch weeks. benralizuma 2023-0 Yes [id number] 30mg inject 1 [facility] (FASENRA 1-24 Pen under ity of PEN) 30 00:00: the skin [place] mg/mL AtIn 00 every 8 [facility] (eight) Branch weeks. benralizuma 2023-0 Yes [id number] 30mg inject 1 [facility] (FASENRA 1-24 Pen under ity of PEN) 30 00:00: the skin [place] mg/mL AtIn 00 every 8 [facility] (eight) Branch weeks. benralizuma 2023-0 Yes [id number] 30mg inject 1 [facility] (FASENRA 1-24 Pen under ity of PEN) 30 00:00: the skin [place] mg/mL AtIn 00 every 8 [facility] (eight) Branch weeks. benralizuma 2023-0 Yes [id number] 30mg inject 1 [facility] (FASENRA 1-24 Pen under ity of PEN) 30 00:00: the skin [place] mg/mL AtIn 00 every 8 [facility] (eight) Branch weeks. benralizuma 2023-0 Yes [id number] 30mg inject 1 [facility] (FASENRA 1-24 Pen under ity of PEN) 30 00:00: the skin [place] mg/mL AtIn 00 every 8 [facility] (eight) Branch weeks. benralizuma 2023-0 Yes [id number] 30mg inject 1 [facility] (FASENRA 1-24 Pen under ity of PEN) 30 00:00: the skin [place] mg/mL AtIn 00 every 8 [facility] (eight) Branch weeks. benralizuma 2023-0 Yes [id number] 30mg inject 1 [facility] (FASENRA 1-24 Pen under ity of PEN) 30 00:00: the skin [place] mg/mL AtIn 00 every 8 [facility] (eight) Branch weeks. benralizuma 3-0 Yes [id number] 30mg inject 1 [facility] (FASENRA 1-24 Pen under ity of PEN) 30 00:00: the skin [place] mg/mL AtIn 00 every 8 [facility] (eight) Branch weeks. benralizuma 3-0 Yes [id number] 30mg inject 1 [facility] (FASENRA 1-24 Pen under ity of PEN) 30 00:00: the skin [place] mg/mL AtIn 00 every 8 [facility] (eight) Branch weeks. benralizuma 3-0 Yes [id number] 30mg inject 1 [facility] (FASENRA 1-24 Pen under ity of PEN) 30 00:00: the skin [place] mg/mL AtIn 00 every 8 [facility] (eight) Branch weeks. benralizuma 3-0 Yes [id number] 30mg inject 1 [facility] (FASENRA 1-24 Pen under ity of PEN) 30 00:00: the skin [place] mg/mL AtIn 00 every 8 [facility] (eight) Branch weeks. benralizuma 3-0 Yes [id number] 30mg inject 1 [facility] (FASENRA 1-24 Pen under ity of PEN) 30 00:00: the skin [place] mg/mL AtIn 00 every 8 [facility] (eight) Branch weeks. benralizuma 3-0 Yes [id number] 30mg inject 1 [facility] (FASENRA 1-24 Pen under ity of PEN) 30 00:00: the skin [place] mg/mL AtIn 00 every 8 [facility] (eight) Branch weeks. benralizuma 2023-0 Yes [id number] 30mg inject 1 [facility] (FASENRA 1-24 Pen under ity of PEN) 30 00:00: the skin [place] mg/mL AtIn 00 every 8 [facility] (eight) Branch weeks. benralizuma 2023-0 Yes [id number] 30mg inject 1 [facility] (FASENRA 1-24 Pen under ity of PEN) 30 00:00: the skin [place] mg/mL AtIn 00 every 8 [facility] (eight) Branch weeks. benralizuma 2023-0 Yes [id number] 30mg inject 1 [facility] (FASENRA 1-24 Pen under ity of PEN) 30 00:00: the skin [place] mg/mL AtIn 00 every 8 [facility] (eight) Branch weeks. benralizuma 2023-0 Yes [id number] 30mg inject 1 [facility] (FASENRA 1-24 Pen under ity of PEN) 30 00:00: the skin [place] mg/mL AtIn 00 every 8 [facility] (eight) Branch weeks. benralizuma 2023-0 Yes [id number] 30mg inject 1 [facility] (FASENRA 1-24 Pen under ity of PEN) 30 00:00: the skin [place] mg/mL AtIn 00 every 8 [facility] (eight) Branch weeks. benralizuma 2023-0 Yes [id number] 30mg inject 1 [facility] (FASENRA 1-24 Pen under ity of PEN) 30 00:00: the skin [place] mg/mL AtIn 00 every 8 [facility] (eight) Branch weeks. benralizuma 2023-0 Yes [id number] 30mg inject 1 [facility] (FASENRA 1-24 Pen under ity of PEN) 30 00:00: the skin [place] mg/mL AtIn 00 every 8 [facility] (eight) Branch weeks. benralizuma 2023-0 Yes [id number] 30mg inject 1 [facility] (FASENRA 1-24 Pen under ity of PEN) 30 00:00: the skin [place] mg/mL AtIn 00 every 8 [facility] (eight) Branch weeks. benralizuma 2023-0 Yes [id number] 30mg inject 1 [facility] (FASENRA 1-24 Pen under ity of PEN) 30 00:00: the skin [place] mg/mL AtIn 00 every 8 [facility] (eight) Branch weeks. benralizuma 2023-0 Yes [id number] 30mg inject 1 [facility] (FASENRA 1-24 Pen under ity of PEN) 30 00:00: the skin [place] mg/mL AtIn 00 every 8 [facility] (eight) Branch weeks. benralizuma 2023-0 Yes [id number] 30mg inject 1 [facility] (FASENRA 1-24 Pen under ity of PEN) 30 00:00: the skin [place] mg/mL AtIn 00 every 8 [facility] (eight) Branch weeks. benralizuma 2023-0 Yes [id number] 30mg inject 1 [facility] (FASENRA 1-24 Pen under ity of PEN) 30 00:00: the skin [place] mg/mL AtIn 00 every 8 [facility] (eight) Branch weeks. benralizuma 2023-0 Yes [id number] 30mg inject 1 [facility] (FASENRA 1-24 Pen under ity of PEN) 30 00:00: the skin [place] mg/mL AtIn 00 every 8 [facility] (eight) Branch weeks. benralizuma 3-0 Yes [id number] 30mg inject 1 [facility] (FASENRA 1-24 Pen under ity of PEN) 30 00:00: the skin [place] mg/mL AtIn 00 every 8 [facility] (eight) Branch weeks. benralizuma 3-0 Yes [id number] 30mg inject 1 [facility] (FASENRA 1-24 Pen under ity of PEN) 30 00:00: the skin [place] mg/mL AtIn 00 every 8 [facility] (eight) Branch weeks. benralizuma 3-0 Yes [id number] 30mg inject 1 [facility] (FASENRA 1-24 Pen under ity of PEN) 30 00:00: the skin [place] mg/mL AtIn 00 every 8 [facility] (eight) Branch weeks. benralizuma 2023-0 Yes [id number] 30mg inject 1 [facility] (FASENRA 1-24 Pen under ity of PEN) 30 00:00: the skin [place] mg/mL AtIn 00 every 8 [facility] (eight) Branch weeks. benralizuma 2023-0 Yes [id number] 30mg inject 1 [facility] (FASENRA 1-24 Pen under ity of PEN) 30 00:00: the skin [place] mg/mL AtIn 00 every 8 [facility] (eight) Branch weeks. benralizuma 2023-0 Yes [id number] 30mg inject 1 [facility] (FASENRA 1-24 Pen under ity of PEN) 30 00:00: the skin [place] mg/mL AtIn 00 every 8 [facility] (eight) Branch weeks. benralizuma 2023-0 Yes [id number] 30mg inject 1 [facility] (FASENRA 1-24 Pen under ity of PEN) 30 00:00: the skin [place] mg/mL AtIn 00 every 8 [facility] (eight) Branch weeks. benralizuma 2023-0 Yes [id number] 30mg inject 1 [facility] (FASENRA 1-24 Pen under ity of PEN) 30 00:00: the skin [place] mg/mL AtIn 00 every 8 [facility] (eight) Branch weeks. benralizuma 2023-0 Yes [id number] 30mg inject 1 [facility] (FASENRA 1-24 Pen under ity of PEN) 30 00:00: the skin [place] mg/mL AtIn 00 every 8 [facility] (eight) Branch weeks. benralizuma 2023-0 Yes [id number] 30mg inject 1 [facility] (FASENRA 1-24 Pen under ity of PEN) 30 00:00: the skin [place] mg/mL AtIn 00 every 8 [facility] (eight) Branch weeks. benralizuma 2023-0 Yes [id number] 30mg inject 1 [facility] (FASENRA 1-24 Pen under ity of PEN) 30 00:00: the skin [place] mg/mL AtIn 00 every 8 [facility] (eight) Branch weeks. benralizuma 2023-0 Yes [id number] 30mg inject 1 [facility] (FASENRA 1-24 Pen under ity of PEN) 30 00:00: the skin [place] mg/mL AtIn 00 every 8 [facility] (eight) Branch weeks. benralizuma 2023-0 Yes [id number] 30mg inject 1 [facility] (FASENRA 1-24 Pen under ity of PEN) 30 00:00: the skin [place] mg/mL AtIn 00 every 8 [facility] (eight) Branch weeks. benralizuma 2023-0 Yes [id number] 30mg inject 1 [facility] (FASENRA 1-24 Pen under ity of PEN) 30 00:00: the skin [place] mg/mL AtIn 00 every 8 [facility] (eight) Branch weeks. benralizuma 2023-0 Yes [id number] 30mg inject 1 [facility] (FASENRA 1-24 Pen under ity of PEN) 30 00:00: the skin [place] mg/mL AtIn 00 every 8 [facility] (eight) Branch weeks. benralizuma 2023-0 Yes [id number] 30mg inject 1 [facility] (FASENRA 1-24 Pen under ity of PEN) 30 00:00: the skin [place] mg/mL AtIn 00 every 8 [facility] (eight) Branch weeks. benralizuma 2023-0 Yes [id number] 30mg inject 1 [facility] (FASENRA 1-24 Pen under ity of PEN) 30 00:00: the skin [place] mg/mL AtIn 00 every 8 [facility] (eight) Branch weeks. benralizuma 2023-0 Yes [id number] 30mg inject 1 [facility] (FASENRA 1-24 Pen under ity of PEN) 30 00:00: the skin [place] mg/mL AtIn 00 every 8 [facility] (eight) Branch weeks. benralizuma 2023-0 Yes [id number] 30mg inject 1 [facility] (FASENRA 1-24 Pen under ity of PEN) 30 00:00: the skin [place] mg/mL AtIn 00 every 8 [facility] (eight) Branch weeks. benralizuma 2023-0 Yes [id number] 30mg inject 1 [facility] (FASENRA 1-24 Pen under ity of PEN) 30 00:00: the skin [place] mg/mL AtIn 00 every 8 [facility] (eight) Branch weeks. benralizuma 2023-0 Yes [id number] 30mg inject 1 [facility] (FASENRA 1-24 Pen under ity of PEN) 30 00:00: the skin [place] mg/mL AtIn 00 every 8 [facility] (eight) Branch weeks. benralizuma 2023-0 Yes [id number] 30mg inject 1 [facility] (FASENRA 1-24 Pen under ity of PEN) 30 00:00: the skin [place] mg/mL AtIn 00 every 8 [facility] (eight) Branch weeks. benralizuma 2023-0 Yes [id number] 30mg inject 1 [facility] (FASENRA 1-24 Pen under ity of PEN) 30 00:00: the skin [place] mg/mL AtIn 00 every 8 [facility] (eight) Branch weeks. benralizuma 2023-0 Yes [id number] 30mg inject 1 [facility] (FASENRA 1-24 Pen under ity of PEN) 30 00:00: the skin [place] mg/mL AtIn 00 every 8 [facility] (eight) Branch weeks. benralizuma 2023-0 Yes [id number] 30mg inject 1 [facility] (FASENRA 1-24 Pen under ity of PEN) 30 00:00: the skin [place] mg/mL AtIn 00 every 8 [facility] (eight) Branch weeks. benralizuma 3-0 Yes [id number] 30mg inject 1 [facility] (FASENRA 1-24 Pen under ity of PEN) 30 00:00: the skin [place] mg/mL AtIn 00 every 8 [facility] (eight) Branch weeks. benralizuma 3-0 Yes [id number] 30mg inject 1 [facility] (FASENRA 1-24 Pen under ity of PEN) 30 00:00: the skin [place] mg/mL AtIn 00 every 8 [facility] (eight) Branch weeks. benralizuma 3-0 Yes [id number] 30mg inject 1 [facility] (FASENRA 1-24 Pen under ity of PEN) 30 00:00: the skin [place] mg/mL AtIn 00 every 8 [facility] (eight) Branch weeks. benralizuma 3-0 Yes [id number] 30mg inject 1 [facility] (FASENRA 1-24 Pen under ity of PEN) 30 00:00: the skin [place] mg/mL AtIn 00 every 8 [facility] (eight) Branch weeks. benralizuma 3-0 Yes [id number] 30mg inject 1 [facility] (FASENRA 1-24 Pen under ity of PEN) 30 00:00: the skin [place] mg/mL AtIn 00 every 8 [facility] (eight) Branch weeks. benralizuma 2023-0 Yes [id number] 30mg inject 1 [facility] (FASENRA 1-24 Pen under ity of PEN) 30 00:00: the skin [place] mg/mL AtIn 00 every 8 [facility] (eight) Branch weeks. benralizuma 2023-0 Yes [id number] 30mg inject 1 [facility] (FASENRA 1-24 Pen under ity of PEN) 30 00:00: the skin [place] mg/mL AtIn 00 every 8 [facility] (eight) Branch weeks. benralizuma 2023-0 Yes [id number] 30mg inject 1 [facility] (FASENRA 1-24 Pen under ity of PEN) 30 00:00: the skin [place] mg/mL AtIn 00 every 8 [facility] (eight) Branch weeks. benralizuma 2023-0 Yes [id number] 30mg inject 1 [facility] (FASENRA 1-24 Pen under ity of PEN) 30 00:00: the skin [place] mg/mL AtIn 00 every 8 [facility] (eight) Branch weeks. benralizuma 2023-0 Yes [id number] 30mg inject 1 [facility] (FASENRA 1-24 Pen under ity of PEN) 30 00:00: the skin [place] mg/mL AtIn 00 every 8 [facility] (eight) Branch weeks. benralizuma 2023-0 Yes [id number] 30mg inject 1 [facility] (FASENRA 1-24 Pen under ity of PEN) 30 00:00: the skin [place] mg/mL AtIn 00 every 8 [facility] (eight) Branch weeks. benralizuma 2023-0 Yes [id number] 30mg inject 1 [facility] (FASENRA 1-24 Pen under ity of PEN) 30 00:00: the skin [place] mg/mL AtIn 00 every 8 [facility] (eight) Branch weeks. benralizuma 2023-0 Yes [id number] 30mg inject 1 [facility] (FASENRA 1-24 Pen under ity of PEN) 30 00:00: the skin [place] mg/mL AtIn 00 every 8 [facility] (eight) Branch weeks. benralizuma 2023-0 Yes [id number] 30mg inject 1 [facility] (FASENRA 1-24 Pen under ity of PEN) 30 00:00: the skin [place] mg/mL AtIn 00 every 8 [facility] (eight) Branch weeks. benralizuma 2023-0 Yes [id number] 30mg inject 1 [facility] (FASENRA 1-24 Pen under ity of PEN) 30 00:00: the skin [place] mg/mL AtIn 00 every 8 [facility] (eight) Branch weeks. benralizuma 2023-0 Yes [id number] 30mg inject 1 [facility] (FASENRA 1-24 Pen under ity of PEN) 30 00:00: the skin [place] mg/mL AtIn 00 every 8 [facility] (eight) Branch weeks. benralizuma 2022-0 Yes [id number] 30mg inject 1 [facility] (FASENRA 1-24 Pen under ity of PEN) 30 00:00: the skin [place] mg/mL AtIn 00 every 8 [facility] (eight) Branch weeks. benralizuma 2022-0 3- No [id number] 30mg inject 1 [facility] (FASENRA 08-11 08-08 Pen under ity of PEN) 30 00:00: 00:00 the skin [place] mg/mL AtIn 00 :00 every 8 [facility] (eight) Branch weeks. benralizuma 2022-0 3- No [id number] 30mg inject 1 [facility] (FASENRA 08-11 08-08 Pen under ity of PEN) 30 00:00: 00:00 the skin [place] mg/mL AtIn 00 :00 every 8 [facility] (eight) Branch weeks. benralizuma 2022-0 3- No [id number] 30mg inject 1 [facility] (FASENRA 24 08-08 Pen under ity of PEN) 30 00:00: 00:00 the skin [place] mg/mL AtIn 00 :00 every 8 [facility] (eight) Branch weeks. benralizuma 2022-0 3- No [id number] 30mg inject 1 [facility] (FASENRA 08-11 08-08 Pen under ity of PEN) 30 00:00: 00:00 the skin [place] mg/mL AtIn 00 :00 every 8 [facility] (eight) Branch weeks. VRAYLAR 3 2022-0 Yes 3mg Take 3 mg [facility] mg Cap 1-07 by mouth ity of 00:00: at [place] 00 bedtime. [facility] VRAYLAR 3 2022-0 Yes 3mg Take 3 mg [facility] mg Cap 1-07 by mouth ity of 00:00: at [place] 00 bedtime. [facility] Branch VRAYLAR 3 2022-0 Yes 3mg Take 3 mg [facility] mg Cap 1-07 by mouth ity of 00:00: at [place] 00 bedtime. [facility] VRAYLAR 3 2022-0 Yes 3mg Take 3 mg [facility] mg Cap 1-07 by mouth ity of 00:00: at [place] [address] bedtime. Medical Branch VRAYLAR 3 2022-0 Yes 3mg Take 3 mg [facility] mg Cap 1-07 by mouth ity of 00:00: at [place] [address] bedtime. [facility] Branch VRAYLAR 3 0 Yes 3mg Take 3 mg [facility] mg Cap 1-07 by mouth ity of 00:00: at [place] [address] bedtime. [facility] Branch VRAYLAR 3 2022-0 Yes 3mg Take 3 mg [facility] mg Cap 1-07 by mouth ity of 00:00: at [place] [address] bedtime. [facility] VRAYLAR 3 0 Yes 3mg Take 3 mg [facility] mg Cap 1-07 by mouth ity of 00:00: at [place] [address] bedtime. [facility] VRAYLAR 3 0 Yes 3mg Take 3 mg [facility] mg Cap 1-07 by mouth ity of 00:00: at [place] [address] bedtime. [facility] Branch VRAYLAR 3 2022-0 Yes 3mg Take 3 mg [facility] mg Cap 1-07 by mouth ity of 00:00: at [place] [address] bedtime. [facility] VRAYLAR 3 0 Yes 3mg Take 3 mg [facility] mg Cap 1-07 by mouth ity of 00:00: at [place] [address] bedtime. [facility] Branch VRAYLAR 3 0 Yes 3mg Take 3 mg [facility] mg Cap 1-07 by mouth ity of 00:00: at [place] [address] bedtime. [facility] VRAYLAR 3 0 Yes 3mg Take 3 mg [facility] mg Cap 1-07 by mouth ity of 00:00: at [place] [address] bedtime. [facility] VRAYLAR 3 0 Yes 3mg Take 3 mg [facility] mg Cap 1-07 by mouth ity of 00:00: at [place] [address] bedtime. [facility] VRAYLAR 3 0 Yes 3mg Take 3 mg [facility] mg Cap 1-07 by mouth ity of 00:00: at [place] [address] bedtime. [facility] VRAYLAR 3 2022-0 Yes 3mg Take 3 mg [facility] mg Cap 1-07 by mouth ity of 00:00: at [place] [address] bedtime. [facility] VRAYLAR 3 0 Yes 3mg Take 3 mg [facility] mg Cap 1-07 by mouth ity of 00:00: at [place] [address] bedtime. [facility] Branch VRAYLAR 3 0 Yes 3mg Take 3 mg [facility] mg Cap 1-07 by mouth ity of 00:00: at [place] [address] bedtime. [facility] Branch VRAYLAR 3 0 Yes 3mg Take 3 mg [facility] mg Cap 1-07 by mouth ity of 00:00: at [place] [address] bedtime. [facility] Branch VRAYLAR 3 0 Yes 3mg Take 3 mg [facility] mg Cap 1-07 by mouth ity of 00:00: at [place] [address] bedtime. Medical Branch VRAYLAR 3 0 Yes 3mg Take 3 mg [facility] mg Cap 1-07 by mouth ity of 00:00: at [place] [address] bedtime. [facility] Branch VRAYLAR 3 Yes 3mg Take 3 mg [facility] mg Cap 1-07 by mouth ity of 00:00: at [place] [address] bedtime. [facility] Branch VRAYLAR 3 Yes 3mg Take 3 mg [facility] mg Cap 1-07 by mouth ity of 00:00: at [place] [address] bedtime. [facility] Branch VRAYLAR 3 Yes 3mg Take 3 mg [facility] mg Cap 1-07 by mouth ity of 00:00: at [place] [address] bedtime. [facility] Branch VRAYLAR 3 Yes 3mg Take 3 mg [facility] mg Cap 1-07 by mouth ity of 00:00: at [place] [address] bedtime. Medical Branch VRAYLAR 3 0 Yes 3mg Take 3 mg [facility] mg Cap 1-07 by mouth ity of 00:00: at [place] [address] bedtime. Medical Branch VRAYLAR 3 0 Yes 3mg Take 3 mg [facility] mg Cap 1-07 by mouth ity of 00:00: at [place] [address] bedtime. [facility] Branch VRAYLAR 3 0 Yes 3mg Take 3 mg [facility] mg Cap 1-07 by mouth ity of 00:00: at [place] [address] bedtime. [facility] Branch VRAYLAR 3 0 Yes 3mg Take 3 mg [facility] mg Cap 1-07 by mouth ity of 00:00: at [place] [address] bedtime. [facility] Branch VRAYLAR 3 0 Yes 3mg Take 3 mg [facility] mg Cap 1-07 by mouth ity of 00:00: at [place] [address] bedtime. [facility] Branch VRAYLAR 3 0 Yes 3mg Take 3 mg [facility] mg Cap 1-07 by mouth ity of 00:00: at [place] [address] bedtime. [facility] Branch VRAYLAR 3 2022-0 Yes 3mg Take 3 mg [facility] mg Cap 1-07 by mouth ity of 00:00: at [place] [address] bedtime. [facility] Branch VRAYLAR 3 2022-0 Yes 3mg Take 3 mg [facility] mg Cap 1-07 by mouth ity of 00:00: at [place] [address] bedtime. [facility] Branch VRAYLAR 3 0 Yes 3mg Take 3 mg [facility] mg Cap 1-07 by mouth ity of 00:00: at [place] [address] bedtime. [facility] Branch VRAYLAR 3 0 Yes 3mg Take 3 mg [facility] mg Cap 1-07 by mouth ity of 00:00: at [place] [address] bedtime. Medical Branch VRAYLAR 3 0 Yes 3mg Take 3 mg [facility] mg Cap 1-07 by mouth ity of 00:00: at [place] [address] bedtime. Medical Branch VRAYLAR 3 0 Yes 3mg Take 3 mg [facility] mg Cap 1-07 by mouth ity of 00:00: at [place] [address] bedtime. [facility] Branch VRAYLAR 3 0 Yes 3mg Take 3 mg [facility] mg Cap 1-07 by mouth ity of 00:00: at [place] [address] bedtime. Medical Branch VRAYLAR 3 0 Yes 3mg Take 3 mg [facility] mg Cap 1-07 by mouth ity of 00:00: at [place] [address] bedtime. Medical Branch VRAYLAR 3 0 Yes 3mg Take 3 mg [facility] mg Cap 1-07 by mouth ity of 00:00: at [place] [address] bedtime. [facility] Branch VRAYLAR 3 0 Yes 3mg Take 3 mg [facility] mg Cap 1-07 by mouth ity of 00:00: at [place] [address] bedtime. [facility] Branch VRAYLAR 3 0 Yes 3mg Take 3 mg [facility] mg Cap 1-07 by mouth ity of 00:00: at [place] [address] bedtime. [facility] Branch VRAYLAR 3 2022-0 Yes 3mg Take 3 mg [facility] mg Cap 1-07 by mouth ity of 00:00: at [place] [address] bedtime. [facility] Branch VRAYLAR 3 2022-0 Yes 3mg Take 3 mg [facility] mg Cap 1-07 by mouth ity of 00:00: at [place] [address] bedtime. [facility] Branch VRAYLAR 3 2022-0 Yes 3mg Take 3 mg [facility] mg Cap 1-07 by mouth ity of 00:00: at [place] [address] bedtime. [facility] Branch VRAYLAR 3 2022-0 Yes 3mg Take 3 mg [facility] mg Cap 1-07 by mouth ity of 00:00: at [place] [address] bedtime. [facility] Branch VRAYLAR 3 0 Yes 3mg Take 3 mg [facility] mg Cap 1-07 by mouth ity of 00:00: at [place] [address] bedtime. [facility] Branch VRAYLAR 3 2022-0 Yes 3mg Take 3 mg [facility] mg Cap 1-07 by mouth ity of 00:00: at [place] [address] bedtime. [facility] Branch VRAYLAR 3 2022-0 Yes 3mg Take 3 mg [facility] mg Cap 1-07 by mouth ity of 00:00: at [place] [address] bedtime. [facility] Branch VRAYLAR 3 0 Yes 3mg Take 3 mg [facility] mg Cap 1-07 by mouth ity of 00:00: at [place] [address] bedtime. [facility] Branch VRAYLAR 3 2022-0 Yes 3mg Take 3 mg [facility] mg Cap 1-07 by mouth ity of 00:00: at [place] [address] bedtime. [facility] Branch VRAYLAR 3 0 Yes 3mg Take 3 mg [facility] mg Cap 1-07 by mouth ity of 00:00: at [place] [address] bedtime. [facility] Branch VRAYLAR 3 2022-0 Yes 3mg Take 3 mg [facility] mg Cap 1-07 by mouth ity of 00:00: at [place] [address] bedtime. [facility] Branch VRAYLAR 3 0 Yes 3mg Take 3 mg [facility] mg Cap 1-07 by mouth ity of 00:00: at [place] [address] bedtime. [facility] Branch VRAYLAR 3 2022-0 Yes 3mg Take 3 mg [facility] mg Cap 1-07 by mouth ity of 00:00: at [place] [address] bedtime. [facility] Branch VRAYLAR 3 0 Yes 3mg Take 3 mg [facility] mg Cap 1-07 by mouth ity of 00:00: at [place] [address] bedtime. [facility] Branch VRAYLAR 3 0 Yes 3mg Take 3 mg [facility] mg Cap 1-07 by mouth ity of 00:00: at [place] [address] bedtime. [facility] Branch VRAYLAR 3 2022-0 Yes 3mg Take 3 mg [facility] mg Cap 1-07 by mouth ity of 00:00: at [place] [address] bedtime. [facility] Branch VRAYLAR 3 0 Yes 3mg Take 3 mg [facility] mg Cap 1-07 by mouth ity of 00:00: at [place] [address] bedtime. [facility] Branch VRAYLAR 3 0 Yes 3mg Take 3 mg [facility] mg Cap 1-07 by mouth ity of 00:00: at [place] [address] bedtime. [facility] Branch VRAYLAR 3 0 Yes 3mg Take 3 mg [facility] mg Cap 1-07 by mouth ity of 00:00: at [place] [address] bedtime. [facility] Branch VRAYLAR 3 0 Yes 3mg Take 3 mg [facility] mg Cap 1-07 by mouth ity of 00:00: at [place] [address] bedtime. [facility] Branch VRAYLAR 3 0 Yes 3mg Take 3 mg [facility] mg Cap 1-07 by mouth ity of 00:00: at [place] [address] bedtime. [facility] Branch VRAYLAR 3 0 Yes 3mg Take 3 mg [facility] mg Cap 1-07 by mouth ity of 00:00: at [place] [address] bedtime. [facility] Branch VRAYLAR 3 0 Yes 3mg Take 3 mg [facility] mg Cap 1-07 by mouth ity of 00:00: at [place] [address] bedtime. [facility] Branch VRAYLAR 3 0 Yes 3mg Take 3 mg [facility] mg Cap 1-07 by mouth ity of 00:00: at [place] [address] bedtime. [facility] Branch VRAYLAR 3 0 Yes 3mg Take 3 mg [facility] mg Cap 1-07 by mouth ity of 00:00: at [place] [address] bedtime. [facility] Branch VRAYLAR 3 0 Yes 3mg Take 3 mg [facility] mg Cap 1-07 by mouth ity of 00:00: at [place] 00 bedtime. [facility] Branch VRAYLAR 3 2022-0 Yes 3mg Take 3 mg [facility] mg Cap -07 by mouth ity of 00:00: at [place] 00 bedtime. [facility] Branch VRAYLAR 3 2022-0 Yes 3mg Take 3 mg [facility] mg Cap -07 by mouth ity of 00:00: at [place] 00 bedtime. [facility] VRAYLAR 3 2022-0 Yes 3mg Take 3 mg [facility] mg Cap -07 by mouth ity of 00:00: at [place] 00 bedtime. [facility] VRAYLAR 3 2022-0 2022- No 3mg Take 3 mg [place] mg Cap 07-25- by mouth ity of 00:00: 00:00 at [place] 00 :00 bedtime. [facility] VRAYLAR 3 2022-0 2022- No 3mg Take 3 mg [place] mg Cap 07-25- by mouth ity of 00:00: 00:00 at [place] 00 :00 bedtime. [facility] VRAYLAR 3 0 2022- No 3mg Take 3 mg [place] mg Cap 07-25-05 by mouth ity of 00:00: 00:00 at [place] 00 :00 bedtime. [facility] levalbutero 2021-07 Yes [id number] INHALE 2 [facility] (XOPENEX 2-29 PUFFS BY ity o f HFA) 45 00:00: MOUTH [place] mcg/actuati 00 EVERY 6 Medic al on inhaler HOURS Branc h NEEDED BEFORE EXERCISE OR FOR WHEEZING/S HORTNESS OF BREATH. levalbutero 2021-07 Yes [id number] INHALE 2 [facility] (XOPENEX 2-29 PUFFS BY ity o f HFA) 45 00:00: MOUTH [place] mcg/actuati 00 EVERY 6 Medic al on inhaler HOURS Branc h NEEDED BEFORE EXERCISE OR FOR WHEEZING/S HORTNESS OF BREATH. levalbutero 2021-07 Yes [id number] INHALE 2 [facility] (XOPENEX 2-29 PUFFS BY ity o f HFA) 45 00:00: MOUTH [place] mcg/actuati 00 EVERY 6 Medic al on inhaler HOURS Branc h NEEDED BEFORE EXERCISE OR FOR WHEEZING/S HORTNESS OF BREATH. levalbutero 2021-07 Yes [id number] INHALE 2 [facility] (XOPENEX 2-29 PUFFS BY ity o f HFA) 45 00:00: MOUTH [place] mcg/actuati 00 EVERY 6 Medic al on inhaler HOURS Branc h NEEDED BEFORE EXERCISE OR FOR WHEEZING/S HORTNESS OF BREATH. levalbutero 2021-07 Yes [id number] INHALE 2 [facility] (XOPENEX 2-29 PUFFS BY ity o f HFA) 45 00:00: MOUTH [place] mcg/actuati 00 EVERY 6 Medic al on inhaler HOURS Branc h NEEDED BEFORE EXERCISE OR FOR WHEEZING/S HORTNESS OF BREATH. levalbutero 2021-07 Yes [id number] INHALE 2 [facility] (XOPENEX 2-29 PUFFS BY ity o f HFA) 45 00:00: MOUTH [place] mcg/actuati 00 EVERY 6 Medic al on inhaler HOURS Branc h NEEDED BEFORE EXERCISE OR FOR WHEEZING/S HORTNESS OF BREATH. levalbutero 2021-07 Yes [id number] INHALE 2 [facility] (XOPENEX 2-29 PUFFS BY ity o f HFA) 45 00:00: MOUTH [place] mcg/actuati 00 EVERY 6 Medic al on inhaler HOURS Branc h NEEDED BEFORE EXERCISE OR FOR WHEEZING/S HORTNESS OF BREATH. levalbutero 2021-07 Yes [id number] INHALE 2 [facility] (XOPENEX 2-29 PUFFS BY ity o f HFA) 45 00:00: MOUTH [place] mcg/actuati 00 EVERY 6 Medic al on inhaler HOURS Branc h NEEDED BEFORE EXERCISE OR FOR WHEEZING/S HORTNESS OF BREATH. levalbutero 2021-07 Yes [id number] INHALE 2 [facility] (XOPENEX 2-29 PUFFS BY ity o f HFA) 45 00:00: MOUTH [place] mcg/actuati 00 EVERY 6 Medic al on inhaler HOURS Branc h NEEDED BEFORE EXERCISE OR FOR WHEEZING/S HORTNESS OF BREATH. levalbutero 2021-07 Yes [id number] INHALE 2 [facility] (XOPENEX 2-29 PUFFS BY ity o f HFA) 45 00:00: MOUTH [place] mcg/actuati 00 EVERY 6 Medic al on inhaler HOURS Branc h NEEDED BEFORE EXERCISE OR FOR WHEEZING/S HORTNESS OF BREATH. levalbutero 2021-07- No [id number] INHALE 2 [facility] (XOPENEX 208-18 PUFFS BY ity of HFA) 45 00:00: 00:00 MOUTH [place] mcg/actuati 00 :00 EVERY 6 Medic al on inhaler HOURS Branc h NEEDED BEFORE EXERCISE OR FOR WHEEZING/S HORTNESS OF BREATH. levalbutero 2021-07- No [id number] INHALE 2 [facility] (XOPENEX 208-18 PUFFS BY ity of HFA) 45 00:00: 00:00 MOUTH [place] mcg/actuati 00 :00 EVERY 6 Medic al on inhaler HOURS Branc h NEEDED BEFORE EXERCISE OR FOR WHEEZING/S HORTNESS OF BREATH. levalbutero 2021-07- No [id number] INHALE 2 [facility] (XOPENEX 208-18 PUFFS BY ity of HFA) 45 00:00: 00:00 MOUTH [place] mcg/actuati 00 :00 EVERY 6 Medic al on inhaler HOURS Branc h NEEDED BEFORE EXERCISE OR FOR WHEEZING/S HORTNESS OF BREATH. ibuprofen 2021-07 Yes [id number] 800mg Take 1 [facility] 800 mg 2-25 tablet by ity of tablet 00:00: mouth [place] 00 every 8 Medical (eight) Branch hours as needed for Pain (scale 4-6) or Temp > 38.5 C. benzonatate 2021-07 Yes [id number] 200mg Take 1 [facility] 200 mg 2-25 capsule by ity of capsule 00:00: mouth 3 [place] 00 (three) Medical times Branch daily as needed for Cough. ibuprofen 2021-07 Yes [id number] 800mg Take 1 [facility] 800 mg 2-25 tablet by ity of tablet 00:00: mouth [place] 00 every 8 Medical (eight) Branch hours as needed for Pain (scale 4-6) or Temp > 38.5 C. benzonatate 2021-07 Yes [id number] 200mg Take 1 [facility] 200 mg 2-25 capsule by ity of capsule 00:00: mouth 3 [place] 00 (three) Medical times Branch daily as needed for Cough. ibuprofen 2021-07 Yes [id number] 800mg Take 1 [facility] 800 mg 2-25 tablet by ity of tablet 00:00: mouth [place] 00 every 8 Medical (eight) Branch hours as needed for Pain (scale 4-6) or Temp > 38.5 C. benzonatate 2021-07 Yes [id number] 200mg Take 1 [facility] 200 mg 2-25 capsule by ity of capsule 00:00: mouth 3 (three) Medical times Branch daily as needed for Cough. ibuprofen 2021-07 Yes [id number] 800mg Take 1 [facility] 800 mg 2-25 tablet by ity of tablet 00:00: mouth [place] 00 every 8 Medical (eight) Branch hours as needed for Pain (scale 4-6) or Temp > 38.5 C. benzonatate 2021-07 Yes [id number] 200mg Take 1 [facility] 200 mg 2-25 capsule by ity of capsule 00:00: mouth 3 (three) Medical times Branch daily as needed for Cough. ibuprofen 2021-07 Yes [id number] 800mg Take 1 [facility] 800 mg 2-25 tablet by ity of tablet 00:00: mouth [place] 00 every 8 Medical (eight) Branch hours as needed for Pain (scale 4-6) or Temp > 38.5 C. benzonatate 2021-07 Yes [id number] 200mg Take 1 [facility] 200 mg 2-25 capsule by ity of capsule 00:00: mouth 3 (three) Medical times Branch daily as needed for Cough. ibuprofen 2021-07 Yes [id number] 800mg Take 1 [facility] 800 mg 2-25 tablet by ity of tablet 00:00: mouth [place] 00 every 8 Medical (eight) Branch hours as needed for Pain (scale 4-6) or Temp > 38.5 C. benzonatate 2021-07 Yes [id number] 200mg Take 1 [facility] 200 mg 2-25 capsule by ity of capsule 00:00: mouth 3 (three) Medical times Branch daily as needed for Cough. ibuprofen 2021-07 Yes [id number] 800mg Take 1 [facility] 800 mg 2-25 tablet by ity of tablet 00:00: mouth [place] 00 every 8 Medical (eight) Branch hours as needed for Pain (scale 4-6) or Temp > 38.5 C. benzonatate 2021-07 Yes [id number] 200mg Take 1 [facility] 200 mg 2-25 capsule by ity of capsule 00:00: mouth 3 (three) Medical times Branch daily as needed for Cough. ibuprofen 2021-07 Yes [id number] 800mg Take 1 [facility] 800 mg 2-25 tablet by ity of tablet 00:00: mouth [place] 00 every 8 Medical (eight) Branch hours as needed for Pain (scale 4-6) or Temp > 38.5 C. benzonatate 2021-07 Yes [id number] 200mg Take 1 [facility] 200 mg 2-25 capsule by ity of capsule 00:00: mouth (three) Medical times Branch daily as needed for Cough. ibuprofen 2021-07 Yes [id number] 800mg Take 1 [facility] 800 mg 2-25 tablet by ity of tablet 00:00: mouth 00 every 8 Medical (eight) Branch hours as needed for Pain (scale 4-6) or Temp > 38.5 C. benzonatate 2021-07 Yes [id number] 200mg Take 1 [facility] 200 mg 2-25 capsule by ity of capsule 00:00: mouth (three) Medical times Branch daily as needed for Cough. ibuprofen 2021-07 Yes [id number] 800mg Take 1 [facility] 800 mg 2-25 tablet by ity of tablet 00:00: mouth every 8 Medical (eight) Branch hours as needed for Pain (scale 4-6) or Temp > 38.5 C. benzonatate 2021-07 Yes [id number] 200mg Take 1 [facility] 200 mg 2-25 capsule by ity of capsule 00:00: mouth (three) Medical times Branch daily as needed for Cough. ibuprofen 2021-07 Yes [id number] 800mg Take 1 [facility] 800 mg 2-25 tablet by ity of tablet 00:00: mouth [place] every 8 Medical (eight) Branch hours as needed for Pain (scale 4-6) or Temp > 38.5 C. benzonatate 2021-07 Yes [id number] 200mg Take 1 [facility] 200 mg 2-25 capsule by ity of capsule 00:00: mouth (three) Medical times Branch daily as needed for Cough. ibuprofen 2021-07 Yes [id number] 800mg Take 1 [facility] 800 mg 2-25 tablet by ity of tablet 00:00: mouth [place] 00 every 8 Medical (eight) Branch hours as needed for Pain (scale 4-6) or Temp > 38.5 C. benzonatate 2021-07 Yes [id number] 200mg Take 1 [facility] 200 mg 2-25 capsule by ity of capsule 00:00: mouth 3 [place] 00 (three) Medical times Branch daily as needed for Cough. ibuprofen 2021-07 Yes [id number] 800mg Take 1 [facility] 800 mg 2-25 tablet by ity of tablet 00:00: mouth [place] 00 every 8 Medical (eight) Branch hours as needed for Pain (scale 4-6) or Temp > 38.5 C. ibuprofen 2021-07 Yes [id number] 800mg Take 1 [facility] 800 mg 2-25 tablet by ity of tablet 00:00: mouth [place] 00 every 8 Medical (eight) Branch hours as needed for Pain (scale 4-6) or Temp > 38.5 C. ibuprofen 2021-07 Yes [id number] 800mg Take 1 [facility] 800 mg 2-25 tablet by ity of tablet 00:00: mouth [place] 00 every 8 Medical (eight) Branch hours as needed for Pain (scale 4-6) or Temp > 38.5 C. ibuprofen 2021-07 Yes [id number] 800mg Take 1 [facility] 800 mg 2-25 tablet by ity of tablet 00:00: mouth [place] 00 every 8 Medical (eight) Branch hours as needed for Pain (scale 4-6) or Temp > 38.5 C. ibuprofen 2021-07 Yes [id number] 800mg Take 1 [facility] 800 mg 2-25 tablet by ity of tablet 00:00: mouth [place] 00 every 8 Medical (eight) Branch hours as needed for Pain (scale 4-6) or Temp > 38.5 C. ibuprofen 2021-07 Yes [id number] 800mg Take 1 [facility] 800 mg 2-25 tablet by ity of tablet 00:00: mouth [place] 00 every 8 Medical (eight) Branch hours as needed for Pain (scale 4-6) or Temp > 38.5 C. ibuprofen 2021-07 Yes [id number] 800mg Take 1 [facility] 800 mg 2-25 tablet by ity of tablet 00:00: mouth [place] 00 every 8 Medical (eight) Branch hours as needed for Pain (scale 4-6) or Temp > 38.5 C. ibuprofen 2021-07 Yes [id number] 800mg Take 1 [facility] 800 mg 2-25 tablet by ity of tablet 00:00: mouth [place] 00 every 8 Medical (eight) Branch hours as needed for Pain (scale 4-6) or Temp > 38.5 C. ibuprofen 2021-07 Yes [id number] 800mg Take 1 [facility] 800 mg 2-25 tablet by ity of tablet 00:00: mouth [place] 00 every 8 Medical (eight) Branch hours as needed for Pain (scale 4-6) or Temp > 38.5 C. ibuprofen 2021-07 Yes [id number] 800mg Take 1 [facility] 800 mg 2-25 tablet by ity of tablet 00:00: mouth [place] 00 every 8 Medical (eight) Branch hours as needed for Pain (scale 4-6) or Temp > 38.5 C. ibuprofen 2021-07 Yes [id number] 800mg Take 1 [facility] 800 mg 2-25 tablet by ity of tablet 00:00: mouth [place] 00 every 8 Medical (eight) Branch hours as needed for Pain (scale 4-6) or Temp > 38.5 C. ibuprofen 2021-07 Yes [id number] 800mg Take 1 [facility] 800 mg 2-25 tablet by ity of tablet 00:00: mouth [place] 00 every 8 Medical (eight) Branch hours as needed for Pain (scale 4-6) or Temp > 38.5 C. ibuprofen 2021-07 Yes [id number] 800mg Take 1 [facility] 800 mg 2-25 tablet by ity of tablet 00:00: mouth [place] 00 every 8 Medical (eight) Branch hours as needed for Pain (scale 4-6) or Temp > 38.5 C. ibuprofen 2021-07 Yes [id number] 800mg Take 1 [facility] 800 mg 2-25 tablet by ity of tablet 00:00: mouth [place] 00 every 8 Medical (eight) Branch hours as needed for Pain (scale 4-6) or Temp > 38.5 C. ibuprofen 2021-07 Yes [id number] 800mg Take 1 [facility] 800 mg 2-25 tablet by ity of tablet 00:00: mouth [place] 00 every 8 Medical (eight) Branch hours as needed for Pain (scale 4-6) or Temp > 38.5 C. ibuprofen 2021-07 Yes [id number] 800mg Take 1 [facility] 800 mg 2-25 tablet by ity of tablet 00:00: mouth [place] 00 every 8 Medical (eight) Branch hours as needed for Pain (scale 4-6) or Temp > 38.5 C. ibuprofen 2021-07 Yes [id number] 800mg Take 1 [facility] 800 mg 2-25 tablet by ity of tablet 00:00: mouth [place] 00 every 8 Medical (eight) Branch hours as needed for Pain (scale 4-6) or Temp > 38.5 C. ibuprofen 2021-07 Yes [id number] 800mg Take 1 [facility] 800 mg 2-25 tablet by ity of tablet 00:00: mouth [place] 00 every 8 Medical (eight) Branch hours as needed for Pain (scale 4-6) or Temp > 38.5 C. ibuprofen 2021-07 Yes [id number] 800mg Take 1 [facility] 800 mg 2-25 tablet by ity of tablet 00:00: mouth [place] 00 every 8 Medical (eight) Branch hours as needed for Pain (scale 4-6) or Temp > 38.5 C. ibuprofen 2021-07 Yes [id number] 800mg Take 1 [facility] 800 mg 2-25 tablet by ity of tablet 00:00: mouth [place] 00 every 8 Medical (eight) Branch hours as needed for Pain (scale 4-6) or Temp > 38.5 C. ibuprofen 2021-07 Yes [id number] 800mg Take 1 [facility] 800 mg 2-25 tablet by ity of tablet 00:00: mouth [place] 00 every 8 Medical (eight) Branch hours as needed for Pain (scale 4-6) or Temp > 38.5 C. ibuprofen 2021-07 Yes [id number] 800mg Take 1 [facility] 800 mg 2-25 tablet by ity of tablet 00:00: mouth [place] 00 every 8 Medical (eight) Branch hours as needed for Pain (scale 4-6) or Temp > 38.5 C. ibuprofen 2021-07 Yes [id number] 800mg Take 1 [facility] 800 mg 2-25 tablet by ity of tablet 00:00: mouth [place] 00 every 8 Medical (eight) Branch hours as needed for Pain (scale 4-6) or Temp > 38.5 C. ibuprofen 2021-07 Yes [id number] 800mg Take 1 [facility] 800 mg 2-25 tablet by ity of tablet 00:00: mouth [place] 00 every 8 Medical (eight) Branch hours as needed for Pain (scale 4-6) or Temp > 38.5 C. ibuprofen 2021-07 Yes [id number] 800mg Take 1 [facility] 800 mg 2-25 tablet by ity of tablet 00:00: mouth [place] 00 every 8 Medical (eight) Branch hours as needed for Pain (scale 4-6) or Temp > 38.5 C. ibuprofen 2021-07 Yes [id number] 800mg Take 1 [facility] 800 mg 2-25 tablet by ity of tablet 00:00: mouth [place] 00 every 8 Medical (eight) Branch hours as needed for Pain (scale 4-6) or Temp > 38.5 C. ibuprofen 2021-07 Yes [id number] 800mg Take 1 [facility] 800 mg 2-25 tablet by ity of tablet 00:00: mouth [place] 00 every 8 Medical (eight) Branch hours as needed for Pain (scale 4-6) or Temp > 38.5 C. ibuprofen 2021-07 Yes [id number] 800mg Take 1 [facility] 800 mg 2-25 tablet by ity of tablet 00:00: mouth [place] 00 every 8 Medical (eight) Branch hours as needed for Pain (scale 4-6) or Temp > 38.5 C. ibuprofen 2021-07 Yes [id number] 800mg Take 1 [facility] 800 mg 2-25 tablet by ity of tablet 00:00: mouth [place] 00 every 8 Medical (eight) Branch hours as needed for Pain (scale 4-6) or Temp > 38.5 C. ibuprofen 2021-07 Yes [id number] 800mg Take 1 [facility] 800 mg 2-25 tablet by ity of tablet 00:00: mouth [place] 00 every 8 Medical (eight) Branch hours as needed for Pain (scale 4-6) or Temp > 38.5 C. ibuprofen 2021-07 Yes [id number] 800mg Take 1 [facility] 800 mg 2-25 tablet by ity of tablet 00:00: mouth [place] 00 every 8 Medical (eight) Branch hours as needed for Pain (scale 4-6) or Temp > 38.5 C. ibuprofen 2021-07 Yes [id number] 800mg Take 1 [facility] 800 mg 2-25 tablet by ity of tablet 00:00: mouth [place] 00 every 8 Medical (eight) Branch hours as needed for Pain (scale 4-6) or Temp > 38.5 C. ibuprofen 2021-07 Yes [id number] 800mg Take 1 [facility] 800 mg 2-25 tablet by ity of tablet 00:00: mouth [place] 00 every 8 Medical (eight) Branch hours as needed for Pain (scale 4-6) or Temp > 38.5 C. ibuprofen 2021-07- No [id number] 800mg Take 1 [facility] 800 mg 2-25 04-11 tablet by ity of tablet 00:00: 00:00 mouth [place] 00 :00 every 8 Medical (eight) Branch hours as needed for Pain (scale 4-6) or Temp > 38.5 C. benzonatate 2021-07- No [id number] 200mg Take 1 [facility] 200 mg 2-08-18 capsule by ity of capsule 00:00: 00:00 mouth 3 [place] 00 :00 (three) Medical times Branch daily as needed for Cough. benzonatate 2021-07- No [id number] 200mg Take 1 [facility] 200 mg 2-25 08-18 capsule by ity of capsule 00:00: 00:00 mouth 3 [place] 00 :00 (three) Medical times Branch daily as needed for Cough. benzonatate 2021-07- No [id number] 200mg Take 1 [facility] 200 mg 2-08-18 capsule by ity of capsule 00:00: 00:00 mouth 3 [place] 00 :00 (three) Medical times Branch daily as needed for Cough. dexamethaso 2021-07 Yes [id number] 12mg Take 120 [facility] ne 0.1 2-22 mL by ity of mg/mL LOW 00:00: mouth in [place] [facility] 00 the Medical ON solution morning. Bran dexamethaso 2021-07 Yes [id number] 12mg Take 120 [facility] ne 0.1 2-22 mL by ity of mg/mL LOW 00:00: mouth [place] [facility] 00 the Medical ON solution morning. Bran ch dexamethaso 2021-07 Yes [id number] 12mg Take 120 [facility] ne 0.1 2-22 mL by ity of mg/mL LOW 00:00: mouth [place] [facility] 00 the Medical ON solution morning. Bran dexamethaso 2021-07 Yes [id number] 12mg Take 120 [facility] ne 0.1 2-22 mL by ity of mg/mL LOW 00:00: mouth [place] [facility] 00 the Medical ON solution morning. Bran ch dexamethaso 2021-07 Yes [id number] 12mg Take 120 [facility] ne 0.1 2-22 mL by ity of mg/mL LOW 00:00: mouth [place] [facility] 00 the Medical ON solution morning. Volodymyr anderson dexamethdanielleo 2021-07 Yes [id number] 12mg Take 120 [facility] ne 0.1 2-22 mL by ity of mg/mL LOW 00:00: mouth [place] [facility] 00 the Medical ON solution morning. Volodymyr [place] dexamethdanielleo 2021-07 Yes [id number] 12mg Take 120 [facility] ne 0.1 2-22 mL by ity of mg/mL LOW 00:00: mouth [place] [facility] 00 the Medical ON solution morning. Volodymyr and[place] dexamethaso 2021-07 Yes [id number] 12mg Take 120 [facility] ne 0.1 2-22 mL by ity of mg/mL LOW 00:00: mouth [place] [facility] 00 the Medical ON solution morning. Volodymyr and[place] dexamethaso 2021-07 Yes [id number] 12mg Take 120 [facility] ne 0.1 2-22 mL by ity of mg/mL LOW 00:00: mouth [place] [facility] 00 the Medical ON solution morning. Volodymyr anderson dexamethaso 2021-07 Yes [id number] 12mg Take 120 [facility] ne 0.1 2-22 mL by ity of mg/mL LOW 00:00: mouth [place] [facility] 00 the Medical ON solution morning. Volodymyr anderson dexamethaso 2021-07 Yes [id number] 12mg Take 120 [facility] ne 0.1 2-22 mL by ity of mg/mL LOW 00:00: mouth [place] [facility] 00 the Medical ON solution morning. Volodymyr and[place] dexamethaso 2021-07 Yes [id number] 12mg Take 120 [facility] ne 0.1 2-22 mL by ity of mg/mL LOW 00:00: mouth [place] [facility] 00 the Medical ON solution morning. Volodymyr and[place] dexamethaso 2021-07 Yes [id number] 12mg Take 120 [facility] ne 0.1 2-22 mL by ity of mg/mL LOW 00:00: mouth [place] [facility] 00 the Medical ON solution morning. Volodymyr and[place] dexamethaso 2021-07- No [id number] 12mg Take 120 [facility] ne 0.1 2-22 01-31 mL by ity of mg/mL LOW 00:00: 00:00 mouth in [place] [facility] 00 :00 the Medical ON solution morning. Volodymyr and[place] dexamethaso 2021-07- No [id number] 12mg Take 120 [facility] ne 0.1 2-22 -31 mL by ity of mg/mL LOW 00:00: 00:00 mouth in [place] CON[facility]AT[facility] 00 :00 the Medical ON solution morning. Volodymyr and[place] dexamethaso 2021-07- No [id number] 12mg Take 120 [facility] ne 0.1 2-22 -31 mL by ity of mg/mL LOW [...] Univer s e (ABILIFY 2-05 Intramuscu ity [facility]) 09:02: lar route [place] 300 mg sers 43 once every Me dical month. Branch ARIPiprazol 2021-07 Yes by Univer [facility] e (ABILIFY 2-05 Intramuscu ity [facility]) 09:02: lar route [place] as 300 mg sers 43 once every Me dical month. Branch budesonide- 2021-07 Yes [id number] 2{puff} Inhale 2 [facility] formoteroL 2-05 Puffs in ity o f (SYMBICORT) 00:00: the [place] 160-4.5 00 morning Medical mcg/actuati and 2 Branch on inhaler Puffs in the evening. tiotropium 2021-07 Yes [id number] 1{puff} Inhale 1 [facility] bromide 2-05 Puff ity of (SPIRIVA 00:00: daily. [place] RESPIMAT) 00 Medical 2.5 Branch mcg/actuati on Mist budesonide- 2021-07 Yes [id number] 2{puff} Inhale 2 [facility] formoteroL 2-05 Puffs in ity o f (SYMBICORT) 00:00: the [place] 160-4.5 00 morning Medical mcg/actuati and 2 Branch on inhaler Puffs in the evening. tiotropium 2021-07 Yes [id number] 1{puff} Inhale 1 [facility] bromide 2-05 Puff ity of (SPIRIVA 00:00: daily. [place] RESPIMAT) 00 Medical 2.5 Branch mcg/actuati on Mist budesonide- 2021-07 Yes [id number] 2{puff} Inhale 2 [facility] formoteroL 2-05 Puffs in ity o f (SYMBICORT) 00:00: the [place] 160-4.5 00 morning Medical mcg/actuati and 2 Branch on inhaler Puffs in the evening. tiotropium 2021-07 Yes [id number] 1{puff} Inhale 1 [facility] bromide 2-05 Puff ity of (SPIRIVA 00:00: daily. [place] RESPIMAT) 00 Medical 2.5 Branch mcg/actuati on Mist budesonide- 2021-07 Yes [id number] 2{puff} Inhale 2 [facility] formoteroL 2-05 Puffs in ity o f (SYMBICORT) 00:00: the [place] 160-4.5 00 morning Medical mcg/actuati and 2 Branch on inhaler Puffs in the evening. tiotropium 2021-07 Yes [id number] 1{puff} Inhale 1 [facility] bromide 2-05 Puff ity of (SPIRIVA 00:00: daily. [place] RESPIMAT) 00 Medical 2.5 Branch mcg/actuati on Mist budesonide- 2021-07 Yes [id number] 2{puff} Inhale 2 [facility] formoteroL 2-05 Puffs in ity o f (SYMBICORT) 00:00: the [place] 160-4.5 00 morning Medical mcg/actuati and 2 Branch on inhaler Puffs in the evening. tiotropium 2021-07 Yes [id number] 1{puff} Inhale 1 [facility] bromide 2-05 Puff ity of (SPIRIVA 00:00: daily. [place] RESPIMAT) 00 Medical 2.5 Branch mcg/actuati on Mist budesonide- 2021-07 Yes [id number] 2{puff} Inhale 2 [facility] formoteroL 2-05 Puffs in ity o f (SYMBICORT) 00:00: the [place] 160-4.5 00 morning Medical mcg/actuati and 2 Branch on inhaler Puffs in the evening. tiotropium 2021-07 Yes [id number] 1{puff} Inhale 1 [facility] bromide 2-05 Puff ity of (SPIRIVA 00:00: daily. [place] RESPIMAT) 00 Medical 2.5 Branch mcg/actuati on Mist budesonide- 2021-07 Yes [id number] 2{puff} Inhale 2 [facility] formoteroL 2-05 Puffs in ity o f (SYMBICORT) 00:00: the [place] 160-4.5 00 morning Medical mcg/actuati and 2 Branch on inhaler Puffs in the evening. tiotropium 2021-07 Yes [id number] 1{puff} Inhale 1 [facility] bromide 2-05 Puff ity of (SPIRIVA 00:00: daily. [place] RESPIMAT) 00 Medical 2.5 Branch mcg/actuati on Mist budesonide- 2021-07 Yes [id number] 2{puff} Inhale 2 [facility] formoteroL 2-05 Puffs in ity o f (SYMBICORT) 00:00: the [place] 160-4.5 00 morning Medical mcg/actuati and 2 Branch on inhaler Puffs in the evening. tiotropium 2021-07 Yes [id number] 1{puff} Inhale 1 [facility] bromide 2-05 Puff ity of (SPIRIVA 00:00: daily. [place] RESPIMAT) 00 Medical 2.5 Branch mcg/actuati on Mist budesonide- 2021-07 Yes [id number] 2{puff} Inhale 2 [facility] formoteroL 2-05 Puffs in ity o f (SYMBICORT) 00:00: the [place] 160-4.5 00 morning Medical mcg/actuati and 2 Branch on inhaler Puffs in the evening. tiotropium 2021-07 Yes [id number] 1{puff} Inhale 1 [facility] bromide 2-05 Puff ity of (SPIRIVA 00:00: daily. [place] RESPIMAT) 00 Medical 2.5 Branch mcg/actuati on Mist budesonide- 2021-07 Yes [id number] 2{puff} Inhale 2 [facility] formoteroL 2-05 Puffs in ity o f (SYMBICORT) 00:00: the [place] 160-4.5 00 morning Medical mcg/actuati and 2 Branch on inhaler Puffs in the evening. tiotropium 2021-07 Yes [id number] 1{puff} Inhale 1 [facility] bromide 2-05 Puff ity of (SPIRIVA 00:00: daily. [place] RESPIMAT) 00 Medical 2.5 Branch mcg/actuati on Mist budesonide- 2021-07 Yes [id number] 2{puff} Inhale 2 [facility] formoteroL 2-05 Puffs in ity o f (SYMBICORT) 00:00: the [place] 160-4.5 00 morning Medical mcg/actuati and 2 Branch on inhaler Puffs in the evening. tiotropium 2021-07 Yes [id number] 1{puff} Inhale 1 [facility] bromide 2-05 Puff ity of (SPIRIVA 00:00: daily. [place] RESPIMAT) 00 Medical 2.5 Branch mcg/actuati on Mist budesonide- 2021-07 Yes [id number] 2{puff} Inhale 2 Univers formoteroL 2-05 Puffs in ity o f (SYMBICORT) 00:00: the [place] 160-4.5 00 morning Medical mcg/actuati and 2 Branch on inhaler Puffs in the evening. tiotropium 2021-07 Yes [id number] 1{puff} Inhale 1 [facility] bromide 2-05 Puff ity of (SPIRIVA 00:00: daily. [place] RESPIMAT) 00 Medical 2.5 Branch mcg/actuati on Mist budesonide- 2021-07 Yes [id number] 2{puff} Inhale 2 [facility] formoteroL 2-05 Puffs in ity o f (SYMBICORT) 00:00: the [place] 160-4.5 00 morning Medical mcg/actuati and 2 Branch on inhaler Puffs in the evening. tiotropium 2021-07 Yes [id number] 1{puff} Inhale 1 [facility] bromide 2-05 Puff ity of (SPIRIVA 00:00: daily. [place] RESPIMAT) 00 Medical 2.5 Branch mcg/actuati on Mist budesonide- 2021-07 Yes [id number] 2{puff} Inhale 2 [facility] formoteroL 2-05 Puffs in ity o f (SYMBICORT) 00:00: the [place] 160-4.5 00 morning Medical mcg/actuati and 2 Branch on inhaler Puffs in the evening. tiotropium 2021-07 Yes [id number] 1{puff} Inhale 1 [facility] bromide 2-05 Puff ity of (SPIRIVA 00:00: daily. [place] RESPIMAT) 00 Medical 2.5 Branch mcg/actuati on Mist budesonide- 2021-07 Yes [id number] 2{puff} Inhale 2 [facility] formoteroL 2-05 Puffs in ity o f (SYMBICORT) 00:00: the [place] 160-4.5 00 morning Medical mcg/actuati and 2 Branch on inhaler Puffs in the evening. tiotropium 2021-07 Yes [id number] 1{puff} Inhale 1 [facility] bromide 2-05 Puff ity of (SPIRIVA 00:00: daily. [place] RESPIMAT) 00 Medical 2.5 Branch mcg/actuati on Mist budesonide- 2021-07 Yes [id number] 2{puff} Inhale 2 [facility] formoteroL 2-05 Puffs in ity o f (SYMBICORT) 00:00: the [place] 160-4.5 00 morning Medical mcg/actuati and 2 Branch on inhaler Puffs in the evening. tiotropium 2021-07 Yes [id number] 1{puff} Inhale 1 [facility] bromide 2-05 Puff ity of (SPIRIVA 00:00: daily. [place] RESPIMAT) 00 Medical 2.5 Branch mcg/actuati on Mist budesonide- 2021-07 Yes [id number] 2{puff} Inhale 2 [facility] formoteroL 2-05 Puffs in ity o f (SYMBICORT) 00:00: the [place] 160-4.5 00 morning Medical mcg/actuati and 2 Branch on inhaler Puffs in the evening. tiotropium 2021-07 Yes [id number] 1{puff} Inhale 1 [facility] bromide 2-05 Puff ity of (SPIRIVA 00:00: daily. [place] RESPIMAT) 00 Medical 2.5 Branch mcg/actuati on Mist budesonide- 2021-07 Yes [id number] 2{puff} Inhale 2 [facility] formoteroL 2-05 Puffs in ity o f (SYMBICORT) 00:00: the [place] 160-4.5 00 morning Medical mcg/actuati and 2 Branch on inhaler Puffs in the evening. tiotropium 2021-07 Yes [id number] 1{puff} Inhale 1 [facility] bromide 2-05 Puff ity of (SPIRIVA 00:00: daily. [place] RESPIMAT) 00 Medical 2.5 Branch mcg/actuati on Mist budesonide- 2021-07 Yes [id number] 2{puff} Inhale 2 [facility] formoteroL 2-05 Puffs in ity o f (SYMBICORT) 00:00: the [place] 160-4.5 00 morning Medical mcg/actuati and 2 Branch on inhaler Puffs in the evening. tiotropium 2021-07 Yes [id number] 1{puff} Inhale 1 [facility] bromide 2-05 Puff ity of (SPIRIVA 00:00: daily. [place] RESPIMAT) Medical 2.5 Branch mcg/actuati on Mist methocarbam 2021-07 Yes TAKE 1 Univ ers oL 750 mg 2-05 TABLET BY ity o f tablet 00:00: MOUTH [place] [address] EVERY DAY Medical NEEDED Branch budesonide- 2021-07 Yes [id number] 2{puff} Inhale 2 [facility] formoteroL 2-05 Puffs in ity o f (SYMBICORT) 00:00: the [place] 160-4.5 00 morning Medical mcg/actuati and 2 Branch on inhaler Puffs in the evening. tiotropium 2021-07 Yes [id number] 1{puff} Inhale 1 [facility] bromide 2-05 Puff ity of (SPIRIVA 00:00: daily. [place] [facility]) Medical 2.5 Branch mcg/actuati on Mist methocarbam 2021-07 Yes TAKE 1 Univ ers oL 750 mg 2-05 TABLET BY ity o f tablet 00:00: MOUTH [place] [address] EVERY DAY Medical NEEDED Branch budesonide- 2021-07 Yes [id number] 2{puff} Inhale 2 [facility] formoteroL 2-05 Puffs in ity o f (SYMBICORT) 00:00: the [place] 160-4.5 00 morning Medical mcg/actuati and 2 Branch on inhaler Puffs in the evening. tiotropium 2021-07 Yes [id number] 1{puff} Inhale 1 [facility] bromide 2-05 Puff ity of (SPIRIVA 00:00: daily. [place] RESPIMAT) Medical 2.5 Branch mcg/actuati on Mist methocarbam 2021-07 Yes TAKE 1 Univ ers oL 750 mg 2-05 TABLET BY ity o f tablet 00:00: MOUTH [place] [address] EVERY DAY Medical NEEDED Branch budesonide- 2021-07 Yes [id number] 2{puff} Inhale 2 [facility] formoteroL 2-05 Puffs in ity o f (SYMBICORT) 00:00: the [place] 160-4.5 00 morning Medical mcg/actuati and 2 Branch on inhaler Puffs in the evening. tiotropium 2021-07 Yes [id number] 1{puff} Inhale 1 [facility] bromide 2-05 Puff ity of (SPIRIVA 00:00: daily. [place] RESPIMAT) 00 Medical 2.5 Branch mcg/actuati on Mist methocarbam 2021-07 Yes TAKE 1 Univ ers oL 750 mg 2-05 TABLET BY ity o f tablet 00:00: MOUTH [place] 00 EVERY DAY Medical NEEDED Branch budesonide- 2021-07 Yes [id number] 2{puff} Inhale 2 [facility] formoteroL 2-05 Puffs in ity o f (SYMBICORT) 00:00: the [place] 160-4.5 00 morning Medical mcg/actuati and 2 Branch on inhaler Puffs in the evening. tiotropium 2021-07 Yes [id number] 1{puff} Inhale 1 [facility] bromide 2-05 Puff ity of (SPIRIVA 00:00: daily. [place] RESPIMAT) 00 Medical 2.5 Branch mcg/actuati on Mist budesonide- 2021-07 Yes [id number] 2{puff} Inhale 2 [facility] formoteroL 2-05 Puffs in ity o f (SYMBICORT) 00:00: the [place] 160-4.5 00 morning Medical mcg/actuati and 2 Branch on inhaler Puffs in the evening. tiotropium 2021-07 Yes [id number] 1{puff} Inhale 1 [facility] bromide 2-05 Puff ity of (SPIRIVA 00:00: daily. [place] RESPIMAT) 00 Medical 2.5 Branch mcg/actuati on Mist budesonide- 2021-07 Yes [id number] 2{puff} Inhale 2 [facility] formoteroL 2-05 Puffs in ity o f (SYMBICORT) 00:00: the [place] 160-4.5 00 morning Medical mcg/actuati and 2 Branch on inhaler Puffs in the evening. tiotropium 2021-07 Yes [id number] 1{puff} Inhale 1 [facility] bromide 2-05 Puff ity of (SPIRIVA 00:00: daily. [place] RESPIMAT) 00 Medical 2.5 Branch mcg/actuati on Mist budesonide- 2021-07 Yes [id number] 2{puff} Inhale 2 [facility] formoteroL 2-05 Puffs in ity o f (SYMBICORT) 00:00: the [place] 160-4.5 00 morning Medical mcg/actuati and 2 Branch on inhaler Puffs in the evening. tiotropium 2021-07 Yes [id number] 1{puff} Inhale 1 [facility] bromide 2-05 Puff ity of (SPIRIVA 00:00: daily. [place] RESPIMAT) 00 Medical 2.5 Branch mcg/actuati on Mist methocarbam 2021-07 Yes TAKE 1 Univ ers oL 750 mg 2-05 TABLET BY ity o f tablet 00:00: MOUTH [place] 00 EVERY DAY Medical NEEDED Branch budesonide- 2021-07 Yes [id number] 2{puff} Inhale 2 [facility] formoteroL 2-05 Puffs in ity o f (SYMBICORT) 00:00: the [place] 160-4.5 00 morning Medical mcg/actuati and 2 Branch on inhaler Puffs in the evening. tiotropium 2021-07 Yes [id number] 1{puff} Inhale 1 [facility] bromide 2-05 Puff ity of (SPIRIVA 00:00: daily. [place] RESPIMAT) 00 Medical 2.5 Branch mcg/actuati on Mist methocarbam 2021-07 Yes TAKE 1 Univ ers oL 750 mg 2-05 TABLET BY ity o f tablet 00:00: MOUTH [place] 00 EVERY DAY Medical NEEDED Branch budesonide- 2021-07 Yes [id number] 2{puff} Inhale 2 [facility] formoteroL 2-05 Puffs in ity o f (SYMBICORT) 00:00: the [place] 160-4.5 00 morning Medical mcg/actuati and 2 Branch on inhaler Puffs in the evening. tiotropium 2021-07 Yes [id number] 1{puff} Inhale 1 [facility] bromide 2-05 Puff ity of (SPIRIVA 00:00: daily. [place] RESPIMAT) 00 Medical 2.5 Branch mcg/actuati on Mist methocarbam 2021-07 Yes TAKE 1 Univ ers oL 750 mg 2-05 TABLET BY ity o f tablet 00:00: MOUTH [place] 00 EVERY DAY Medical NEEDED Branch budesonide- 2021-07 Yes [id number] 2{puff} Inhale 2 [facility] formoteroL 2-05 Puffs in ity o f (SYMBICORT) 00:00: the [place] 160-4.5 00 morning Medical mcg/actuati and 2 Branch on inhaler Puffs in the evening. tiotropium 2021-07 Yes [id number] 1{puff} Inhale 1 [facility] bromide 2-05 Puff ity of (SPIRIVA 00:00: daily. [place] RESPIMAT) 00 Medical 2.5 Branch mcg/actuati on Mist methocarbam 2021-07 Yes TAKE 1 Univ ers oL 750 mg 2-05 TABLET BY ity o f tablet 00:00: MOUTH [place] 00 EVERY DAY Medical NEEDED Branch budesonide- 2021-07 Yes [id number] 2{puff} Inhale 2 [facility] formoteroL 2-05 Puffs in ity o f (SYMBICORT) 00:00: the [place] 160-4.5 00 morning Medical mcg/actuati and 2 Branch on inhaler Puffs in the evening. tiotropium 2021-07 Yes [id number] 1{puff} Inhale 1 [facility] bromide 2-05 Puff ity of (SPIRIVA 00:00: daily. [place] RESPIMAT) 00 Medical 2.5 Branch mcg/actuati on Mist methocarbam 2021-07 Yes TAKE 1 Univ ers oL 750 mg 2-05 TABLET BY ity o f tablet 00:00: MOUTH [place] 00 EVERY DAY Medical NEEDED Branch budesonide- 2021-07 Yes [id number] 2{puff} Inhale 2 [facility] formoteroL 2-05 Puffs in ity o f (SYMBICORT) 00:00: the [place] 160-4.5 00 morning Medical mcg/actuati and 2 Branch on inhaler Puffs in the evening. tiotropium 2021-07 Yes [id number] 1{puff} Inhale 1 [facility] bromide 2-05 Puff ity of (SPIRIVA 00:00: daily. [place] RESPIMAT) 00 Medical 2.5 Branch mcg/actuati on Mist methocarbam 2021-07 Yes TAKE 1 Univ ers oL 750 mg 2-05 TABLET BY ity o f tablet 00:00: MOUTH [place] 00 EVERY DAY Medical NEEDED Branch budesonide- 2021-07 Yes [id number] 2{puff} Inhale 2 [facility] formoteroL 2-05 Puffs in ity o f (SYMBICORT) 00:00: the [place] 160-4.5 00 morning Medical mcg/actuati and 2 Branch on inhaler Puffs in the evening. tiotropium 2021-07 Yes [id number] 1{puff} Inhale 1 [facility] bromide 2-05 Puff ity of (SPIRIVA 00:00: daily. [place] RESPIMAT) 00 Medical 2.5 Branch mcg/actuati on Mist methocarbam 2021-07 Yes TAKE 1 Univ ers oL 750 mg 2-05 TABLET BY ity o f tablet 00:00: MOUTH [place] 00 EVERY DAY Medical NEEDED Branch budesonide- 2021-07 Yes [id number] 2{puff} Inhale 2 [facility] formoteroL 2-05 Puffs in ity o f (SYMBICORT) 00:00: the [place] 160-4.5 00 morning Medical mcg/actuati and 2 Branch on inhaler Puffs in the evening. tiotropium 2021-07 Yes [id number] 1{puff} Inhale 1 [facility] bromide 2-05 Puff ity of (SPIRIVA 00:00: daily. [place] RESPIMAT) Medical 2.5 Branch mcg/actuati on Mist methocarbam 2021-07 Yes TAKE 1 Univ ers oL 750 mg 2-05 TABLET BY ity o f tablet 00:00: MOUTH [place] [address] EVERY DAY Medical NEEDED Branch budesonide- 2021-07 Yes [id number] 2{puff} Inhale 2 [facility] formoteroL 2-05 Puffs in ity o f (SYMBICORT) 00:00: the [place] 160-4.5 00 morning Medical mcg/actuati and 2 Branch on inhaler Puffs in the evening. tiotropium 2021-07 Yes [id number] 1{puff} Inhale 1 [facility] bromide 2-05 Puff ity of (SPIRIVA 00:00: daily. [place] RESPIMAT) 00 Medical 2.5 Branch mcg/actuati on Mist budesonide- 2021-07 Yes [id number] 2{puff} Inhale 2 [facility] formoteroL 2-05 Puffs in ity o f (SYMBICORT) 00:00: the [place] 160-4.5 00 morning Medical mcg/actuati and 2 Branch on inhaler Puffs in the evening. tiotropium 2021-07 Yes [id number] 1{puff} Inhale 1 [facility] bromide 2-05 Puff ity of (SPIRIVA 00:00: daily. [place] RESPIMAT) 00 Medical 2.5 Branch mcg/actuati on [...] MOUTH 00 EVERY DAY Medical NEEDED Branch budesonide- 2021-073- No [id number] 2{puff} Inhale 2 [facility] formoteroL 2-05 03-20 Puffs in ity of (SYMBICORT) 00:00: 00:00 the [place] 160-4.5 00 :00 morning Medical mcg/actuati and 2 Branch on inhaler Puffs in the evening. tiotropium 2021-07- No [id number] 1{puff} Inhale 1 [facility] bromide 2-05 03-20 Puff ity of (SPIRIVA 00:00: 00:00 daily. [place] RESPIMAT) 00 :00 Medical 2.5 Branch mcg/actuati on Mist budesonide- 2021-07- No [id number] 2{puff} Inhale 2 [facility] formoteroL 2-05 03-20 Puffs in ity of (SYMBICORT) 00:00: 00:00 the [place] 160-4.5 00 :00 morning Medical mcg/actuati and 2 Branch on inhaler Puffs in the evening. tiotropium 2021-07- No [id number] 1{puff} Inhale 1 [facility] bromide 2-05 03-20 Puff ity of (SPIRIVA 00:00: 00:00 daily. [place] RESPIMAT) 00 :00 Medical 2.5 Branch mcg/actuati on Mist budesonide- 2021-07- No [id number] 2{puff} Inhale 2 [facility] formoteroL 2-05 03-20 Puffs in ity of (SYMBICORT) 00:00: 00:00 the [place] 160-4.5 00 :00 morning Medical mcg/actuati and 2 Branch on inhaler Puffs in the evening. tiotropium 2021-07- No [id number] 1{puff} Inhale 1 [facility] bromide 2-05 03-20 Puff ity of (SPIRIVA 00:00: 00:00 daily. [place] RESPIMAT) 00 :00 Medical 2.5 Branch mcg/actuati on Mist budesonide- 2021-07- No [id number] 2{puff} Inhale 2 [facility] formoteroL 2-05 03-20 Puffs in ity of (SYMBICORT) 00:00: 00:00 the [place] 160-4.5 00 :00 morning Medical mcg/actuati and 2 Branch on inhaler Puffs in the evening. tiotropium 2021-07- No [id number] 1{puff} Inhale 1 [facility] bromide 2-05 03-20 Puff ity of (SPIRIVA 00:00: 00:00 daily. [place] RESPIMAT) 00 :00 Medical 2.5 Branch mcg/actuati on Mist budesonide- 2021-07- No [id number] 2{puff} Inhale 2 [facility] formoteroL 2-05 03-20 Puffs in ity of (SYMBICORT) 00:00: 00:00 [facility] 160-4.5 00 :00 morning Medical mcg/actuati and 2 Branch on inhaler Puffs in the evening. tiotropium 2021-07- No [id number] 1{puff} Inhale 1 [facility] bromide 2-05 03-20 Puff ity of (SPIRIVA 00:00: 00:00 daily. [place] RESPIMAT) 00 :00 Medical 2.5 Branch mcg/actuati [...] at nebulizer 0015, LESLIE solution 3 mL azpaoloi 2021-07- No [id number] Take 42 mL Univers n 100 mg/5 08-22 12-10 by mouth ity of mL 00:00: 05:59 every 24 [place] suspension 00 :00 (twenty-fo Med ical ur) hours Branch AND 21 mL daily. Do all this for 5 days. azithromyci 2021-07- No [id number] Take 42 mL Univers n 100 mg/5 08-22 12-10 by mouth ity of mL 00:00: 05:59 every 24 [place] suspension 00 :00 (twenty-fo Med ical ur) hours Branch AND 21 mL daily. Do all this for 5 days. azbenignoromyci 2021-07- No [id number] Take 42 mL Univers n 100 mg/5 08-22 12-10 by mouth ity of mL 00:00: 05:59 every 24 [place] suspension 00 :00 (twenty-fo Med ical ur) hours Branch AND 21 mL daily. Do all this for 5 days. azithromyci 2021-07- No [id number] Take 42 mL Univers n 100 mg/5 08-22-10 by mouth ity of mL 00:00: 05:59 every 24 [place] suspension 00 :00 (twenty-fo Med ical ur) hours Branch AND 21 mL daily. Do all this for 5 days. azpaoloi 2021-07- No [id number] Take 42 mL Univers n 100 mg/5 08-22 12-10 by mouth ity of mL 00:00: 05:59 every 24 [place] suspension 00 :00 (twenty-fo Med ical ur) hours Branch AND 21 mL daily. Do all this for 5 days. azithromyci 2021-07- No [id number] Take 42 mL Univers n 100 mg/5 08-22 12-10 by mouth ity of mL 00:00: 05:59 every 24 [place] suspension 00 :00 (twenty-fo Med ical ur) hours Branch AND 21 mL daily. Do all this for 5 days. dexamethaso 2021-07- No [id number] 8mg Take 80 mL Univers ne 0.1 08-22- by mouth ity of mg/mL LOW 00:00: 05:59 once now [place] as [facility] 00 :00 for 1 Medical ON solution dose. Branch doxycycline 2021-07- No [id number] 100mg Take 20 mL Univers monohydrate 2 12 by mouth ity of 25 mg/5 mL 00:00: 00:00 every 12 [place] oral 00 :00 (twelve) Medical suspension hours. Branch iopamidol 2021-07 No [id number] 75mL 75 mL, Univers (ISOVUE 08-16 Intravenou ity o f 370-500 mL) 23:05: 23:15 s, ONCE, 1 [place] injection 00 :00 dose, On Medica l 75 mL Tue Branch 06/16/22 at 1715, Routine dexamethaso 2021-07 No 10mg 10 mg, Uni vers ne 08-16 Oral, ity of (DECADRON 22:45: 00:58 ONCE, 1 [place] PHOSPHATE[place] 00 :00 dose, On Medic al injection [facility] 10 mg 06/16/22 at 1645, Routine ipratropium 2021-07 No 6mL 6 mL, Univ ers -albuteroL 08-16 Inhalation it y of (DUONEB) 22:30: 01:45 , ONCE, 1 [place] 0.5 mg-3 00 :00 dose, On Medical mg(2.5 mg [facility] base)/3 mL 06/16/22 nebulizer at 1630, solution 6 Routine mL ketorolac 2021-07 No 30mg 30 mg, Unive rs (TORADOL) 08-16 Slow IV ity of injection 21:45: 00:58 Push, [place] 30 mg 00 :00 ONCE, 1 Medical dose, On Branch 06/16/22 at 1545, Routine codeine-gua 2021-07- No [id number] 5mL Take 5 [...] 125mg 125 mg, Un glen isolone sod 1-11 Intravenou it y of succ 06:00: s, Q6H, [place] (SOLU-MEDRO 00 First dose Me dical L) [...] Medica l 3 mg (6) 51 [facility] risperiDONE Yes .25mg Q.5D Take [...] 13:21: Medica l 3 mg (6) 51 [facility] risperiDONE 2021-0 Yes .25mg Q.5D Take [...] 13:21: Medica l 3 mg (6) 51 [facility] risperiDONE 2021-0 Yes .25mg Q.5D Take [...] 13:21: Medica l 3 mg (6) 51 [facility] risperiDONE 2021-0 Yes .25mg Q.5D Take [...] 13:21: Medica l 3 mg (6) 51 [facility] risperiDONE 2-0 Yes .25mg Q.5D Take [...] 13:21: Medica l 3 mg (6) 51 [facility] risperiDONE 2021-0 Yes .25mg Q.5D Take [...] 13:21: Medica l 3 mg (6) 51 [facility] risperiDONE 2-0 Yes .25mg Q.5D Take [...] 13:21: Medica l 3 mg (6) 51 [facility] risperiDONE 2-0 Yes .25mg Q.5D Take [...] 13:21: Medica l 3 mg (6) 51 [facility] risperiDONE 2-0 Yes .25mg Q.5D Take [...] 13:21: Medica l 3 mg (6) 51 [facility] risperiDONE 2-0 Yes .25mg Q.5D Take [...] 13:21: Medica l 3 mg (6) 51 [facility] risperiDONE 2022-0 Yes .25mg Q.5D Take [...] 13:21: Medica l 3 mg (6) 51 [facility] risperiDONE 2-0 Yes .25mg Q.5D Take [...] 13:21: Medica l 3 mg (6) 51 [facility] risperiDONE 2-0 Yes .25mg Q.5D Take [...] 13:21: Medica l 3 mg (6) 51 [facility] risperiDONE 2022-0 Yes .25mg Q.5D Take 0.[address] [facility] (RisperDAL) 9-21 mg by [facility] 0.25 MG 13:21: mouth 2 Medical tablet 51 (two) Center times daily. iron-multiv 2-0 Yes 1{tbl} QD Take [address] [facility] itamins-min 9-21 tablet by Ignacio reyes 13:21: mouth Medical (THERAGRAN- 51 daily. Center M) 9 mg iron-400 mcg Tab tablet lactulose 2-0 Yes 10mL Take 10 [facility] [...] capsule 03-27 by mouth [facility] 00:00: daily. [address] busPIRone 0 Yes 15mg QD Take [address] (BUSPAR) 15 9- by mouth Luke s MG tablet 00:00: daily. Medica [address] Yes 1mL Inject [address] [facility] [address] [facility] 9-09 mL [facility] 300 mg sers 00:00: intramuscu Medical 00 lar. [place] diazePAM 0 Yes 2mg Q.5D Take 2 [...] capsule 03-27 by mouth [facility] 00:00: daily. [address] busPIRone 0 Yes 15mg QD Take [address] (BUSPAR) 15 9- by mouth Luke s MG tablet 00:00: daily. Medica [address] Yes 1mL Inject [address] [facility] [address] [facility] 9-09 mL [facility] 300 mg sers 00:00: intramuscu Medical 00 lar. [place] diazePAM 2021-0 Yes 2mg Q.5D Take 2 [...] capsule 03-27 by mouth [facility] 00:00: daily. [address] busPIRone Yes 15mg QD Take [address] (BUSPAR) 15 9-09 by mouth Luke s MG tablet 00:00: daily. Medica [address] Yes 1mL Inject [address] [facility] [address] [facility] 9-09 mL [facility] 300 mg sers 00:00: intramuscu Medical 00 larly. [place] diazePAM 0 Yes 2mg Q.5D Take 2 [...] capsule 03-27 by mouth [facility] 00:00: daily. [address] busPIRone Yes 15mg QD Take [address] (BUSPAR) 15 9- by mouth Luke s MG tablet 00:00: daily. Medica [address] Yes 1mL Inject [address] [facility] [address] [facility] 9-09 mL [facility] 300 [facility] [place] diazePAM 0 Yes 2mg Q.5D Take 2 [...] capsule 9- by mouth [facility] 00:00: daily. [address] busPIRone Yes 15mg QD Take [address] (BUSPAR) 15 9-09 by mouth Luke s MG tablet 00:00: daily. Medica [address] Yes 1mL Inject [address] [facility] [address] [facility] 9-09 mL [facility] 300 mg sers 00:00: intramuscu Medical 00 larly. [place] diazePAM 0 Yes 2mg Q.5D Take 2 [...] capsule 03-27 by mouth [facility] 00:00: daily. [address] busPIRone Yes 15mg QD Take [address] (BUSPAR) 15 9- by mouth Luke s MG tablet 00:00: daily. Medica [address] Yes 1mL Inject [address] [facility] [address] [facility] 9-09 mL [facility] 300 mg sers 00:00: intramuscu Medical 00 larly. [place] diazePAM 0 Yes 2mg Q.5D Take 2 [...] capsule 03-27 by mouth [facility] 00:00: daily. [address] busPIRone 0 Yes 15mg QD Take [address] (BUSPAR) 15 - by mouth Luke s MG tablet 00:00: daily. Medica l [address] [place] [address] Yes 1mL Inject [address] [facility] 9-09 mL [facility] 300 mg sers 00:00: intramuscu Medical 00 larly. [place] diazePAM 0 Yes 2mg Q.5D Take 2 [...] 9- by mouth [facility] 00:00: daily. Medical [address] [place] [address] busPIRone 2021-0 Yes 15mg QD Take [address] (BUSPAR) 15 9- by mouth Luke s MG tablet 00:00: daily. Medica l [address] [place] [address] 0 Yes 1mL Inject [address] [facility] [address] [facility] 9-09 mL [facility] 300 mg sers 00:00: intramuscu Medical 00 lar. [place] diazePAM 2021-0 Yes 2mg Q.5D Take 2 [...] capsule 03-27 by mouth [facility] 00:00: daily. [address] busPIRone 2021-0 Yes 15mg QD Take [address] (BUSPAR) 15 9-09 by mouth Luke s MG tablet 00:00: daily. Medica l [address] [place] [address] 0 Yes 1mL Inject [address] [facility] [address] [facility] 9-09 mL [facility] 300 mg sers 00:00: intramuscu Medical 00 larly. [place] diazePAM 2-0 Yes 2mg Q.5D Take 2 [...] capsule 9-09 by mouth [facility] 00:00: daily. [address] busPIRone 0 Yes 15mg QD Take [address] (BUSPAR) 15 9-09 by mouth Luke s MG tablet 00:00: daily. Medica [address] Yes 1mL Inject [address] [facility] [address] [facility] 9-09 mL [facility] 300 mg sers 00:00: intramuscu Medical 00 lar. [place] diazePAM 0 Yes 2mg Q.5D Take 2 [...] capsule 03-27 by mouth [facility] 00:00: daily. [address] busPIRone 0 Yes 15mg QD Take [address] (BUSPAR) 15 - by mouth Luke s MG tablet [facility]: [facility] [address] Yes 1mL Inject [address] [facility] [address] [facility] 9-09 mL [facility] 300 mg sers 00:00: intramuscu [facility] 00 lar. [place] diazePAM 0 Yes 2mg Q.5D Take 2 [...] capsule 9-09 by mouth [facility] 00:00: daily. [address] busPIRone 2021-0 Yes 15mg QD Take [address] (BUSPAR) 15 9-09 by mouth Luke s MG tablet 00:00: daily. Medica l [address] [place] [address] Yes 1mL Inject [address] [facility] [facility] 9-09 mL [facility] 300 mg sers 00:00: intramuscu Medical 00 lar. [place] diazePAM 0 Yes 2mg Q.5D Take 2 [...] capsule 9- by mouth [facility] 00:00: daily. [address] busPIRone Yes 15mg QD Take [address] (BUSPAR) 15 9-09 by mouth Luke s MG tablet 00:00: daily. Medica [address] Yes 1mL Inject [address] [facility] 9-09 mL [facility] 300 mg sers 00:00: intramuscu Medical 00 lar. [place] diazePAM 0 Yes 2mg Q.5D Take 2 [...] capsule 9-09 by mouth [facility] 00:00: daily. [address] busPIRone 0 Yes 15mg QD Take [address] (BUSPAR) 15 9-09 by mouth Luke s MG tablet 00:00: daily. Medica l [address] [place] [address] Yes 1mL Inject [address] [facility] 9-09 mL [facility] 300 mg sers 00:00: intramuscu Medical 00 larly. [place] diazePAM Yes 2mg Q.5D Take [address] [facility] (VALIUM) 2 9-09 by mouth 2 Ignacio es MG tablet 00:00: (two) Medical 00 times Center daily. [facility] Yes 2{puff} Q.5D [address] 200-5 9-08 (two) [facility] mcg/actuati 00:00: times Medic al on inhaler 00 daily. [facility] Yes 2{puff} Q.5D [address] 200-5 9-08 (two) [facility] mcg/actuati 00:00: times Medic al on inhaler 00 daily. [facility] Yes 2{puff} Q.5D [address] [facility] [facility] 200-5 9-08 (two) [facility] mcg/actuati 00:00: times Medic al on inhaler 00 daily. [facility] Yes 2{puff} Q.5D [address] [facility] [facility] 200-5 9-08 (two) [facility] mcg/actuati 00:00: times Medic al on inhaler 00 daily. [facility] Yes 2{puff} Q.5D [address] [facility] [facility] 200-5 9-08 (two) [facility] mcg/actuati 00:00: times Medic al on inhaler 00 daily. [facility] Yes 2{puff} Q.5D [address] [facility] [facility] 200-5 9-08 (two) [facility] mcg/actuati 00:00: times Medic al on inhaler 00 daily. [facility] Yes 2{puff} Q.5D [address] [facility] [facility] 200-5 9-08 (two) [facility] mcg/actuati 00:00: times Medic al on inhaler 00 daily. [facility] Yes 2{puff} Q.5D [address] [facility] 200-5 9-08 (two) [facility] mcg/actuati 00:00: times Medic al on inhaler 00 daily. [facility] Yes 2{puff} Q.5D [address] [facility] 200-5 9-08 (two) [facility] mcg/actuati 00:00: times Medic al on inhaler 00 daily. [facility] Yes 2{puff} Q.5D [address] [facility] 200-5 9-08 (two) [facility] mcg/actuati 00:00: times Medic al on inhaler 00 daily. [facility] Yes 2{puff} Q.5D [address] [facility] 200-5 9-08 (two) [facility] mcg/actuati 00:00: times Medic al on inhaler 00 daily. [facility] Yes 2{puff} Q.5D [address] [facility] 200-5 9-08 (two) [facility] mcg/actuati 00:00: times Medic al on inhaler 00 daily. [facility] Yes 2{puff} Q.5D [address] [facility] 200-5 9-08 (two) [facility] mcg/actuati 00:00: times Medic al on inhaler 00 daily. [facility] Yes 2{puff} Q.5D 2 puffs 2 [facility] [...] Medical 00 night as Center needed. cetirizine 2-0 Yes 10mg Take [address] (ZyrTEC) 10 9-02 by mouth Luke s MG tablet 00:00: every Medical 00 night as Center needed. cetirizine 2-0 Yes 10mg Take [address] (ZyrTEC) 10 9-02 by mouth Luke s MG tablet 00:00: every Medical 00 night as Center needed. cetirizine 2-0 Yes 10mg Take [address] (ZyrTEC) 10 9-02 by mouth Luke s MG tablet 00:00: every Medical 00 night as Center needed. cetirizine 2-0 Yes 10mg Take [address] (ZyrTEC) 10 9-02 by mouth Luke s MG tablet 00:00: every Medical 00 night as Center needed. cetirizine 2-0 Yes 10mg Take [address] (ZyrTEC) 10 9-02 by mouth Luke s MG tablet 00:00: every Medical 00 night as Center needed. cetirizine 2021-0 Yes 10mg Take [address] (ZyrTEC) 10 9-02 by mouth Luke s MG tablet 00:00: every Medical 00 night as Center needed. cetirizine 2-0 Yes 10mg Take [address] (ZyrTEC) 10 9-02 by mouth Luke s MG tablet 00:00: every Medical 00 night as Center needed. cetirizine 2-0 Yes 10mg Take [address] (ZyrTEC) 10 9-02 by mouth Luke s MG tablet 00:00: every Medical 00 night as Center needed. cetirizine 2-0 Yes 10mg Take [address] (ZyrTEC) 10 9-02 by mouth Luke s MG tablet 00:00: every Medical 00 night as Center needed. cetirizine 2-0 Yes 10mg Take [address] (ZyrTEC) 10 9-02 by mouth Luke s MG tablet 00:00: every Medical 00 night as Center needed. cetirizine 2-0 Yes 10mg Take 10 mg C [facility] [...] topically [facility] (KENALOG) 00:00: daily as Medi cherei 0.1 % 00 needed. Center topical cream [...] Medical mg/0.3 mL 00 Center AtIn EPINEPHrine 2022-0 Yes .3mg 0.[address] [facility] (EpiPen 8 [facility]) 0.3 00:00: Medical mg/0.3 mL 00 Center AtIn EPINEPHrine 2022-0 Yes .3mg 0.[address] [facility] (EpiPen [...] lar route [place] injection 00 as needed. [facility] Yes .3mg 0.[address] [facility] (EpiPen 02-17 [facility]) 0.3 00:00: Medical mg/0.3 mL 00 [facility] Yes 1{tbl} Take [address] [facility] (Qulipta) 6-15 tablet by [facility] 60 mg Tab 00:00: mouth. [facility] Yes 1{tbl} Take [address] [facility] (Qulipta) 6-15 tablet by [facility] 60 mg Tab 00:00: mouth. [facility] Yes 1{tbl} Take [address] [facility] (Qulipta) 6-15 tablet by [facility] 60 mg Tab 00:00: mouth. [facility] Yes 1{tbl} Take [address] [facility] (Qulipta) 6-15 tablet by [facility] 60 mg Tab 00:00: mouth. [facility] [address] Yes 1{tbl} Take [address] [facility] (Qulipta) 6-15 tablet by [facility] 60 mg Tab 00:00: mouth. [facility] [address] Yes 1{tbl} Take [address] [facility] [address] (Qulipta) 6-15 tablet by [facility] 60 mg Tab 00:00: mouth. [facility] [address] [address] Yes 1{tbl} Take [address] [facility] (Qulipta) [facility] Tab 00:00: mouth. [facility] [address] Yes 1{tbl} Take [address] [facility] (Qul[facility]) [facility] Tab 00:00: mouth. [facility] [address] Yes 1{tbl} Take [address] [facility] (Qulipta) 6-[facility] Tab 00:00: mouth. Medica [facility] Yes 1{tbl} Take [address] [facility] (Qulipta) 6-[facility] Tab 00:00: mouth. Medica l 00 [facility] Yes 1{tbl} Take [address] [facility] (Qulipta) 6-[facility] Tab 00:00: mouth. Medica l 00 [facility] Yes 1{tbl} Take [address] [facility] (Qulipta) 6-[facility] mg Tab 00:00: mouth. Medica l [facility] Yes 1{tbl} Take [address] [facility] (Qulipta) 6-[facility] Tab 00:00: mouth. Medica l [facility] Yes 1{tbl} Take 1 [facility] (QULIPTA[facility] 6-15 tablet by [facility] o [facility] 60 mg Tab 00:00: mouth [place] 00 daily. [facility] Yes 1{tbl} Take 1 [facility] (QULIPTA) 6-15 tablet by [facility] o [facility] 60 mg Tab 00:00: mouth [place] 00 daily. [facility] Yes 1{tbl} Take 1 [facility] (QULIPTA) 6-15 tablet by [facility] o [facility] 60 mg Tab 00:00: mouth [place] 00 daily. [facility] Yes 1{tbl} Take 1 [facility] (QULIPTA) 6-15 tablet by [facility] o [facility] 60 mg Tab 00:00: mouth [place] 00 daily. [facility] Yes 1{tbl} Take 1 [facility] (QULIPTA) 6-15 tablet by [facility] o [facility] 60 mg Tab 00:00: mouth [place] 00 daily. [facility] Yes 1{tbl} Take 1 [facility] (QULIPTA) 6-15 tablet by [facility] o [facility] 60 mg Tab 00:00: mouth [place] 00 daily. [facility] Yes 1{tbl} Take 1 [facility] (QULIPTA) 6-15 tablet by [facility] o [facility] 60 mg Tab 00:00: mouth [place] 00 daily. [facility] Yes 1{tbl} Take 1 [facility] (QULIPTA) 6-15 tablet by [facility] o f 60 mg Tab 00:00: mouth [place] 00 daily. [facility] Yes 1{tbl} Take 1 [facility] (QULIPTA) 6-15 tablet by [facility] o [facility] 60 mg Tab 00:00: mouth [place] 00 daily. [facility] Yes 1{tbl} Take 1 [facility] (QULIPTA) 6-15 tablet by [facility] 60 mg Tab 00:00: mouth [place] 00 daily. [facility] Yes 1{tbl} Take 1 [facility] (QULIPTA) 6-15 tablet by [facility] o [facility] 60 mg Tab 00:00: mouth [place] 00 daily. [facility] Yes 1{tbl} Take 1 [facility] (QULIPTA) 6-15 tablet by [facility] o [facility] 60 mg Tab 00:00: mouth [place] 00 daily. [facility] Yes 1{tbl} Take 1 [facility] (QULIPTA) 6-15 tablet by [facility] o f 60 mg Tab 00:00: mouth [place] 00 daily. [facility] Yes 1{tbl} Take 1 [facility] (QULIPTA) 6-15 tablet by [facility] o [facility] 60 mg Tab 00:00: mouth [place] 00 daily. [facility] Yes 1{tbl} Take 1 [facility] (QULIPTA) 6-15 tablet by [facility] o [facility] 60 mg Tab 00:00: mouth [place] 00 daily. [facility] Yes 1{tbl} Take 1 [facility] (QULIPTA) 6-15 tablet by [facility] 60 mg Tab 00:00: mouth [place] 00 daily. [facility] Yes 1{tbl} Take 1 [facility] (QULIPTA) 6-15 tablet by [facility] o [facility] 60 mg Tab 00:00: mouth [place] 00 daily. [facility] Yes 1{tbl} Take 1 [facility] (QULIPTA) 6-15 tablet by [facility] o [facility] 60 mg Tab 00:00: mouth [place] 00 daily. [facility] Yes 1{tbl} Take 1 [facility] (QULIPTA) 6-15 tablet by [facility] o [facility] 60 mg Tab 00:00: mouth [place] 00 daily. [facility] Yes 1{tbl} Take 1 [facility] (QULIPTA) 6-15 tablet by [facility] o f 60 mg Tab 00:00: mouth [place] 00 daily. [facility] Yes 1{tbl} Take 1 [facility] (QULIPTA) 6-15 tablet by [facility] o f 60 mg Tab 00:00: mouth [place] 00 daily. [facility] Yes 1{tbl} Take 1 [facility] (QULIPTA) 6-15 tablet by [facility] o f 60 mg Tab 00:00: mouth [place] 00 daily. [facility] Yes 1{tbl} Take 1 [facility] (QULIPTA) 6-15 tablet by [facility] o f 60 mg Tab 00:00: mouth [place] 00 daily. [facility] Yes 1{tbl} Take 1 [facility] (QULIPTA) 6-15 tablet by [facility] o f 60 mg Tab 00:00: mouth [place] 00 daily. [facility] Yes 1{tbl} Take 1 [facility] (QULIPTA) 6-15 tablet by [facility] o f 60 mg Tab 00:00: mouth [place] 00 daily. [facility] Yes 1{tbl} Take 1 [facility] (QULIPTA) 6-15 tablet by [facility] o f 60 mg Tab 00:00: mouth [place] 00 daily. [facility] Yes 1{tbl} Take 1 [facility] (QULIPTA) 6-15 tablet by [facility] o f 60 mg Tab 00:00: mouth [place] 00 daily. [facility] Yes 1{tbl} Take 1 [facility] (QULIPTA) 6-15 tablet by [facility] o f 60 mg Tab 00:00: mouth [place] 00 daily. [facility] Yes 1{tbl} Take 1 [facility] (QULIPTA) 6-15 tablet by [facility] o [facility] 60 mg Tab 00:00: mouth [place] 00 daily. [facility] Yes 1{tbl} Take 1 [facility] (QULIPTA) 6-15 tablet by [facility] o f 60 mg Tab 00:00: mouth [place] 00 daily. [facility] Yes 1{tbl} Take 1 [facility] (QULIPTA) 6-15 tablet by [facility] o f 60 mg Tab 00:00: mouth [place] 00 daily. [facility] Yes 1{tbl} Take 1 [facility] (QULIPTA) 6-15 tablet by [facility] o f 60 mg Tab 00:00: mouth [place] 00 daily. [facility] Yes 1{tbl} Take 1 [facility] (QULIPTA) 6-15 tablet by [facility] o f 60 mg Tab 00:00: mouth [place] 00 daily. [facility] Yes 1{tbl} Take 1 [facility] (QULIPTA) 6-15 tablet by [facility] o f 60 mg Tab 00:00: mouth [place] 00 daily. [facility] Yes 1{tbl} Take 1 [facility] (QULIPTA) 6-15 tablet by [facility] o f 60 mg Tab 00:00: mouth [place] 00 daily. [facility] Yes 1{tbl} Take 1 [facility] (QULIPTA) 6-15 tablet by [facility] o f 60 mg Tab 00:00: mouth [place] 00 daily. [facility] Yes 1{tbl} Take 1 [facility] (QULIPTA) 6-15 tablet by [facility] o f 60 mg Tab 00:00: mouth [place] 00 daily. [facility] Yes 1{tbl} Take 1 [facility] (QULIPTA) 6-15 tablet by [facility] o f 60 mg Tab 00:00: mouth [place] 00 daily. [facility] Yes 1{tbl} Take 1 [facility] (QULIPTA) 6-15 tablet by [facility] o f 60 mg Tab 00:00: mouth [place] 00 daily. [facility] Yes 1{tbl} Take 1 [facility] (QULIPTA) 6-15 tablet by [facility] o f 60 mg Tab 00:00: mouth [place] 00 daily. [facility] Yes 1{tbl} Take 1 [facility] (QULIPTA) 6-15 tablet by [facility] o f 60 mg Tab 00:00: mouth [place] 00 daily. [facility] Yes 1{tbl} Take 1 [facility] (QULIPTA) 6-15 tablet by [facility] o f 60 mg Tab 00:00: mouth [place] 00 daily. [facility] Yes 1{tbl} Take 1 [facility] (QULIPTA) 6-15 tablet by [facility] 60 mg Tab 00:00: mouth [place] 00 daily. [facility] Yes 1{tbl} Take 1 [facility] (QULIPTA) 6-15 tablet by [facility] o [facility] 60 mg Tab 00:00: mouth [place] 00 daily. [facility] Yes 1{tbl} Take 1 [facility] (QULIPTA) 6-15 tablet by [facility] f 60 mg Tab 00:00: mouth [place] 00 daily. [facility] Yes 1{tbl} Take 1 [facility] (QULIPTA) 6-15 tablet by [facility] 60 mg Tab 00:00: mouth [place] 00 daily. [facility] Yes 1{tbl} Take 1 [facility] (QULIPTA) 6-15 tablet by [facility] 60 mg Tab 00:00: mouth [place] 00 daily. [facility] Yes 1{tbl} Take 1 [facility] (QULIPTA) 6-15 tablet by [facility] o [facility] 60 mg Tab 00:00: mouth [place] 00 daily. [facility] Yes 1{tbl} Take 1 [facility] (QULIPTA) 6-15 tablet by [facility] o f 60 mg Tab 00:00: mouth [place] 00 daily. [facility] Yes 1{tbl} Take 1 [facility] (QULIPTA) 6-15 tablet by [facility] 60 mg Tab 00:00: mouth [place] 00 daily. [facility] Yes 1{tbl} Take 1 [facility] (QULIPTA) 6-15 tablet by [facility] o f 60 mg Tab 00:00: mouth [place] 00 daily. [facility] Yes 1{tbl} Take 1 [facility] (QULIPTA) 6-15 tablet by [facility] o f 60 mg Tab 00:00: mouth [place] 00 daily. [facility] Yes 1{tbl} Take 1 [facility] (QULIPTA) 6-15 tablet by [facility] o f 60 mg Tab 00:00: mouth [place] 00 daily. [facility] Yes 1{tbl} Take 1 [facility] (QULIPTA) 6-15 tablet by [facility] o f 60 mg Tab 00:00: mouth [place] 00 daily. [facility] Yes 1{tbl} Take 1 [facility] (QULIPTA) 6-15 tablet by [facility] o f 60 mg Tab 00:00: mouth [place] 00 daily. [facility] Yes 1{tbl} Take 1 [facility] (QULIPTA) 6-15 tablet by [facility] o f 60 mg Tab 00:00: mouth [place] 00 daily. [facility] Yes 1{tbl} Take 1 [facility] (QULIPTA) 6-15 tablet by [facility] o f 60 mg Tab 00:00: mouth [place] 00 daily. [facility] Yes 1{tbl} Take 1 [facility] (QULIPTA) 6-15 tablet by [facility] o f 60 mg Tab 00:00: mouth [place] 00 daily. [facility] Yes 1{tbl} Take 1 [facility] (QULIPTA) 6-15 tablet by [facility] o f 60 mg Tab 00:00: mouth [place] 00 daily. [facility] Yes 1{tbl} Take 1 [facility] (QULIPTA) 6-15 tablet by [facility] o f 60 mg Tab 00:00: mouth [place] 00 daily. [facility] Yes 1{tbl} Take 1 [facility] (QULIPTA) 6-15 tablet by [facility] o f 60 mg Tab 00:00: mouth [place] 00 daily. [facility] Yes 1{tbl} Take 1 [facility] (QULIPTA) 6-15 tablet by [facility] o f 60 mg Tab 00:00: mouth [place] 00 daily. [facility] Yes 1{tbl} Take 1 [facility] (QULIPTA) 6-15 tablet by [facility] o f 60 mg Tab 00:00: mouth [place] 00 daily. [facility] Yes 1{tbl} Take 1 [facility] (QULIPTA) 6-15 tablet by [facility] o f 60 mg Tab 00:00: mouth [place] 00 daily. [facility] Yes 1{tbl} Take 1 [facility] (QULIPTA) 6-15 tablet by [facility] o f 60 mg Tab 00:00: mouth [place] 00 daily. [facility] Yes 1{tbl} Take 1 [facility] (QULIPTA) 6-15 tablet by [facility] o f 60 mg Tab 00:00: mouth [place] 00 daily. [facility] Yes 1{tbl} Take 1 [facility] (QULIPTA) 6-15 tablet by [facility] o f 60 mg Tab 00:00: mouth [place] 00 daily. [facility] Yes 1{tbl} Take 1 [facility] (QULIPTA) 6-15 tablet by [facility] o f 60 mg Tab 00:00: mouth [place] 00 daily. [facility] Yes 1{tbl} Take 1 [facility] (QULIPTA) 6-15 tablet by [facility] o f 60 mg Tab 00:00: mouth [place] 00 daily. [facility] Yes 1{tbl} Take 1 [facility] (QULIPTA) 6-15 tablet by [facility] o f 60 mg Tab 00:00: mouth [place] 00 daily. [facility] Yes 1{tbl} Take 1 [facility] (QULIPTA) 6-15 tablet by [facility] o f 60 mg Tab 00:00: mouth [place] 00 daily. [facility] Yes 1{tbl} Take 1 [facility] (QULIPTA) 6-15 tablet by [facility] o f 60 mg Tab 00:00: mouth [place] 00 daily. [facility] Yes 1{tbl} Take 1 [facility] (QULIPTA) 6-15 tablet by [facility] o f 60 mg Tab 00:00: mouth [place] 00 daily. [facility] Yes 1{tbl} Take 1 [facility] (QULIPTA) 6-15 tablet by [facility] o f 60 mg Tab 00:00: mouth [place] 00 daily. [facility] Yes 1{tbl} Take 1 [facility] (QULIPTA) 6-15 tablet by [facility] o f 60 mg Tab 00:00: mouth [place] 00 daily. [facility] Yes 1{tbl} Take 1 [facility] (QULIPTA) 6-15 tablet by [facility] o f 60 mg Tab 00:00: mouth [place] 00 daily. [facility] Yes 1{tbl} Take 1 [facility] (QULIPTA) 6-15 tablet by [facility] o f 60 mg Tab 00:00: mouth [place] 00 daily. [facility] Yes 1{tbl} Take 1 [facility] (QULIPTA) 6-15 tablet by [facility] o f 60 mg Tab 00:00: mouth [place] 00 daily. [facility] Yes 1{tbl} Take 1 [facility] (QULIPTA) 6-15 tablet by [facility] o f 60 mg Tab 00:00: mouth [place] 00 daily. [facility] Yes 1{tbl} Take 1 [facility] (QULIPTA) 6-15 tablet by [facility] o f 60 mg Tab 00:00: mouth [place] 00 daily. [facility] Yes 1{tbl} Take 1 [facility] (QULIPTA) 6-15 tablet by [facility] o f 60 mg Tab 00:00: mouth [place] 00 daily. [facility] Yes 1{tbl} Take 1 [facility] (QULIPTA) 6-15 tablet by [facility] o f 60 mg Tab 00:00: mouth [place] 00 daily. [facility] Yes 1{tbl} Take 1 [facility] (QULIPTA) 6-15 tablet by [facility] o f 60 mg Tab 00:00: mouth [place] 00 daily. [facility] Yes 1{tbl} Take 1 [facility] (QULIPTA) 6-15 tablet by [facility] o f 60 mg Tab 00:00: mouth [place] 00 daily. [facility] Yes 1{tbl} Take 1 [facility] (QULIPTA) 6-15 tablet by [facility] o f 60 mg Tab 00:00: mouth [place] 00 daily. [facility] Yes 1{tbl} Take 1 [facility] (QULIPTA) 6-15 tablet by [facility] o f 60 mg Tab 00:00: mouth [place] 00 daily. [facility] Yes 1{tbl} Take 1 [facility] (QULIPTA) 6-15 tablet by [facility] o f 60 mg Tab 00:00: mouth [place] 00 daily. [facility] Yes 1{tbl} Take 1 [facility] (QULIPTA) 6-15 tablet by [facility] o f 60 mg Tab 00:00: mouth [place] 00 daily. [facility] Yes 1{tbl} Take 1 [facility] (QULIPTA) 6-15 tablet by [facility] o f 60 mg Tab 00:00: mouth [place] 00 daily. [facility] Yes 1{tbl} Take 1 [facility] (QULIPTA) 6-15 tablet by [facility] o f 60 mg Tab 00:00: mouth [place] 00 daily. [facility] Yes 1{tbl} Take 1 [facility] (QULIPTA) 6-15 tablet by [facility] o f 60 mg Tab 00:00: mouth [place] 00 daily. [facility] Yes 1{tbl} Take 1 [facility] (QULIPTA) 6-15 tablet by [facility] o f 60 mg Tab 00:00: mouth [place] 00 daily. [facility] Yes 1{tbl} Take 1 [facility] (QULIPTA) 6-15 tablet by [facility] o f 60 mg Tab 00:00: mouth [place] 00 daily. [facility] Yes 1{tbl} Take 1 [facility] (QULIPTA) 6-15 tablet by [facility] o f 60 mg Tab 00:00: mouth [place] 00 daily. [facility] Yes 1{tbl} Take 1 [facility] (QULIPTA) 6-15 tablet by [facility] o f 60 mg Tab 00:00: mouth [place] 00 daily. [facility] Yes 1{tbl} Take 1 [facility] (QULIPTA) 6-15 tablet by [facility] o f 60 mg Tab 00:00: mouth [place] 00 daily. [facility] Yes 1{tbl} Take 1 [facility] (QULIPTA) 6-15 tablet by [facility] f 60 mg Tab 00:00: mouth [place] 00 daily. [facility] Yes 1{tbl} Take 1 [facility] (QULIPTA) 6-15 tablet by [facility] o f 60 mg Tab 00:00: mouth [place] 00 daily. [facility] Yes 1{tbl} Take 1 [facility] (QULIPTA) 6-15 tablet by [facility] o f 60 mg Tab 00:00: mouth [place] 00 daily. [facility] Yes 1{tbl} Take 1 [facility] (QULIPTA) 6-15 tablet by [facility] f 60 mg Tab 00:00: mouth [place] 00 daily. [facility] Yes 1{tbl} Take 1 [facility] (QULIPTA) 6-15 tablet by [facility] f 60 mg Tab 00:00: mouth [place] 00 daily. [facility] Yes 1{tbl} Take 1 [facility] (QULIPTA) 6-15 tablet by [facility] f 60 mg Tab 00:00: mouth [place] 00 daily. [facility] Yes 1{tbl} Take 1 [facility] (QULIPTA) 6-15 tablet by [facility] o f 60 mg Tab 00:00: mouth [place] 00 daily. [facility] Yes 1{tbl} Take 1 [facility] (QULIPTA) 6-15 tablet by [facility] o f 60 mg Tab 00:00: mouth [place] 00 daily. [facility] Yes 1{tbl} Take 1 [facility] (QULIPTA) 6-15 tablet by [facility] o f 60 mg Tab 00:00: mouth [place] 00 daily. [facility] Yes 1{tbl} Take 1 [facility] (QULIPTA) 6-15 tablet by [facility] o f 60 mg Tab 00:00: mouth [place] 00 daily. [facility] Yes 1{tbl} Take 1 [facility] (QULIPTA) 6-15 tablet by [facility] o f 60 mg Tab 00:00: mouth [place] 00 daily. [facility] Yes 1{tbl} Take 1 [facility] (QULIPTA) 6-15 tablet by [facility] o f 60 mg Tab 00:00: mouth [place] 00 daily. [facility] Yes 1{tbl} Take 1 [facility] (QULIPTA) 6-15 tablet by [facility] o f 60 mg Tab 00:00: mouth [place] 00 daily. [facility] Yes 1{tbl} Take 1 [facility] (QULIPTA) 6-15 tablet by [facility] o f 60 mg Tab 00:00: mouth [place] 00 daily. [facility] Yes 1{tbl} Take 1 [facility] (QULIPTA) 6-15 tablet by [facility] o f 60 mg Tab 00:00: mouth [place] 00 daily. [facility] Yes 1{tbl} Take 1 [facility] (QULIPTA) 6-15 tablet by [facility] o f 60 mg Tab 00:00: mouth [place] 00 daily. [facility] Yes 1{tbl} Take 1 [facility] (QULIPTA) 6-15 tablet by [facility] o f 60 mg Tab 00:00: mouth [place] 00 daily. [facility] Yes 1{tbl} Take 1 [facility] (QULIPTA) 6-15 tablet by [facility] o f 60 mg Tab 00:00: mouth [place] 00 daily. [facility] Yes 1{tbl} Take 1 [facility] (QULIPTA) 6-15 tablet by [facility] o f 60 mg Tab 00:00: mouth [place] 00 daily. [facility] Yes 1{tbl} Take 1 [facility] (QULIPTA) 6-15 tablet by [facility] f 60 mg Tab 00:00: mouth [place] 00 daily. [facility] Yes 1{tbl} Take 1 [facility] (QULIPTA) 6-15 tablet by [facility] o f 60 mg Tab 00:00: mouth [place] 00 daily. [facility] Yes 1{tbl} Take 1 [facility] (QULIPTA) 6-15 tablet by [facility] f 60 mg Tab 00:00: mouth [place] 00 daily. [facility] Yes 1{tbl} Take 1 [facility] (QULIPTA) 6-15 tablet by [facility] o f 60 mg Tab 00:00: mouth [place] 00 daily. [facility] Yes 1{tbl} Take 1 [facility] (QULIPTA) 6-15 tablet by [facility] o f 60 mg Tab 00:00: mouth [place] 00 daily. [facility] Yes 1{tbl} Take 1 [facility] (QULIPTA) 6-15 tablet by [facility] o f 60 mg Tab 00:00: mouth [place] 00 daily. [facility] Yes 1{tbl} Take 1 [facility] (QULIPTA) 6-15 tablet by [facility] o f 60 mg Tab 00:00: mouth [place] 00 daily. [facility] Yes 1{tbl} Take 1 [facility] (QULIPTA) 6-15 tablet by [facility] o f 60 mg Tab 00:00: mouth [place] 00 daily. [facility] Yes 1{tbl} Take 1 [facility] (QULIPTA) 6-15 tablet by [facility] o f 60 mg Tab 00:00: mouth [place] 00 daily. [facility] Yes 1{tbl} Take 1 [facility] (QULIPTA) 6-15 tablet by [facility] f 60 mg Tab 00:00: mouth [place] 00 daily. [facility] Yes 1{tbl} Take 1 [facility] (QULIPTA) 6-15 tablet by [facility] o f 60 mg Tab 00:00: mouth [place] 00 daily. [facility] Yes 1{tbl} Take 1 [facility] (QULIPTA) 6-15 tablet by [facility] f 60 mg Tab 00:00: mouth [place] 00 daily. [facility] Yes 1{tbl} Take 1 [facility] (QULIPTA) 6-15 tablet by [facility] o f 60 mg Tab 00:00: mouth [place] 00 daily. [facility] Yes 1{tbl} Take 1 [facility] (QULIPTA) 6-15 tablet by [facility] f 60 mg Tab 00:00: mouth [place] 00 daily. [facility] Yes 1{tbl} Take 1 [facility] (QULIPTA) 6-15 tablet by [facility] f 60 mg Tab 00:00: mouth [place] 00 daily. [facility] Yes 1{tbl} Take 1 [facility] (QULIPTA) 6-15 tablet by [facility] f 60 mg Tab 00:00: mouth [place] 00 daily. [facility] Yes 1{tbl} Take 1 [facility] (QULIPTA) 6-15 tablet by [facility] f 60 mg Tab 00:00: mouth [place] 00 daily. [facility] Yes 1{tbl} Take 1 [facility] (QULIPTA) 6-15 tablet by [facility] f 60 mg Tab 00:00: mouth [place] 00 daily. [facility] Yes 1{tbl} Take 1 [facility] (QULIPTA) 6-15 tablet by [facility] f 60 mg Tab 00:00: mouth [place] 00 daily. [facility] Yes 1{tbl} Take 1 [facility] (QULIPTA) 6-15 tablet by [facility] f 60 mg Tab 00:00: mouth [place] 00 daily. [facility] Yes 1{tbl} Take 1 [facility] (QULIPTA) 6-15 tablet by [facility] f 60 mg Tab 00:00: mouth [place] 00 daily. [facility] Yes 1{tbl} Take 1 [facility] (QULIPTA) 6-15 tablet by [facility] f 60 mg Tab 00:00: mouth [place] 00 daily. [facility] Yes 1{tbl} Take 1 [facility] (QULIPTA) 6-15 tablet by [facility] f 60 mg Tab 00:00: mouth [place] 00 daily. [facility] Yes 1{tbl} Take 1 [facility] (QULIPTA) 6-15 tablet by [facility] o f 60 mg Tab 00:00: mouth [place] 00 daily. [facility] Yes 1{tbl} Take 1 [facility] (QULIPTA) 6-15 tablet by [facility] o f 60 mg Tab 00:00: mouth [place] 00 daily. [facility] Yes 1{tbl} Take 1 [facility] (QULIPTA) 6-15 tablet by [facility] f 60 mg Tab 00:00: mouth [place] 00 daily. [facility] Yes 1{tbl} Take 1 [facility] (QULIPTA) 6-15 tablet by [facility] o f 60 mg Tab 00:00: mouth [place] 00 daily. [facility] Yes 1{tbl} Take 1 [facility] (QULIPTA) 6-15 tablet by [facility] f 60 mg Tab 00:00: mouth [place] 00 daily. [facility] Yes 1{tbl} Take 1 [facility] (QULIPTA) 6-15 tablet by [facility] f 60 mg Tab 00:00: mouth [place] 00 daily. [facility] Yes 1{tbl} Take 1 [facility] (QULIPTA) 6-15 tablet by [facility] o f 60 mg Tab 00:00: mouth [place] 00 daily. [facility] Yes 1{tbl} Take 1 [facility] (QULIPTA) 6-15 tablet by [facility] o f 60 mg Tab 00:00: mouth [place] 00 daily. [facility] Yes 1{tbl} Take 1 [facility] (QULIPTA) 6-15 tablet by [facility] o f 60 mg Tab 00:00: mouth [place] 00 daily. [facility] Yes 1{tbl} Take 1 [facility] (QULIPTA) 6-15 tablet by [facility] o f 60 mg Tab 00:00: mouth [place] 00 daily. [facility] Yes 1{tbl} Take 1 [facility] (QULIPTA) 6-15 tablet by [facility] o f 60 mg Tab 00:00: mouth [place] 00 daily. [facility] [place] [facility] Yes 1{tbl} Take 1 [facility] (QULIPTA) 6-15 tablet by [facility] o f 60 mg Tab 00:00: mouth [place] 00 daily. [facility] Yes 1{tbl} Take 1 [facility] (QULIPTA) 6-15 tablet by [facility] o f 60 mg Tab 00:00: mouth [place] 00 daily. [facility] Yes 1{tbl} Take 1 [facility] (QULIPTA) 6-15 tablet by [facility] o f 60 mg Tab 00:00: mouth [place] 00 daily. [facility] Yes 1{tbl} Take 1 [facility] (QULIPTA) 6-15 tablet by [facility] o f 60 mg Tab 00:00: mouth [place] 00 daily. [facility] Yes 1{tbl} Take 1 [facility] (QULIPTA) 6-15 tablet by [facility] o f 60 mg Tab 00:00: mouth [place] 00 daily. [facility] Yes 1{tbl} Take 1 [facility] (QULIPTA) 6-15 tablet by [facility] o f 60 mg Tab 00:00: mouth [place] 00 daily. [facility] Yes 1{tbl} Take 1 [facility] (QULIPTA) 6-15 tablet by [facility] o f 60 mg Tab 00:00: mouth [place] 00 daily. [facility] Yes 1{tbl} Take 1 [facility] (QULIPTA) 6-15 tablet by [facility] o f 60 mg Tab 00:00: mouth [place] 00 daily. [facility] Yes 1{tbl} Take 1 [facility] (QULIPTA) 6-15 tablet by [facility] o f 60 mg Tab 00:00: mouth [place] 00 daily. [facility] Yes 1{tbl} Take [address] [facility] (Qulipta[facility] Tab 00:00: mouth. [facility]ica l [address] [place] [address] levETIRAcet 3- No 500mg Take [address] [facility] am (KEPPRA) 4-13 04-08 [facility] mg/mL 00:00: 23:59 mouth. [facility] solution 00 :00 [facility] levETIRAcet 2022-0 2023- No 500mg Take [address] [facility] (KEPPRA) 4-13 04-08 [facility] mg/mL 00:00: 23:59 mouth. [facility] solution 00 :00 [facility] levETIRAcet 2022-0 2023- No 500mg Take [address] [facility] (KEPPRA) 4-13 04-08 [facility] mg/mL 00:00: 23:59 mouth. Medic al solution 00 :00 [facility] levETIRAcet 2022-0 2023- No 500mg Take [address] [facility] (KEPPRA) 4-13 04-08 [facility] mg/mL 00:00: 23:59 mouth. Medic al solution 00 :00 [facility] levETIRAcet 2022-0 2023- No 500mg Take [address] [facility] (KEPPRA) 4-13 04-08 [facility] 100 mg/mL 00:00: 23:59 mouth. Medic al solution 00 :00 [facility] levETIRAcet 2022-0 2023- No 500mg Take [address] [facility] (KEPPRA) 4-13 04-08 [facility] 100 mg/mL 00:00: 23:59 mouth. Medic al solution 00 :00 [facility] levETIRAcet 2022-0 2023- No 500mg Take [address] [facility] (KEPPRA) 4-13 04-08 [facility] 100 mg/mL 00:00: 23:59 mouth. Medic al solution 00 :00 [facility] levETIRAcet 2022-0 2023- No 500mg Take [address] [facility] (KEPPRA) 4-13 04-08 [facility] 100 mg/mL 00:00: 23:59 mouth. Medic al solution 00 :00 [facility] levETIRAcet 2022-0 2023- No 500mg Take [address] [facility] am (KEPPRA) 4-13 04-08 [facility] 100 mg/mL 00:00: 23:59 mouth. Medic al solution 00 :00 [facility] levETIRAcet 2022-0 2023- No 500mg Take [address] [facility] (KEPPRA) 4-13 04-08 [facility] mg/mL 00:00: 23:59 mouth. Medic al solution 00 :00 [facility] levETIRAcet 2021-0 2023- No 500mg Take [address] [facility] am (KEPPRA) 4-13 04-08 [facility] 100 mg/mL 00:00: 23:59 mouth. Medic al solution 00 :00 [place] levETIRAcet 2021-0 2023- No 500mg Take [address] [facility] am (KEPPRA) 4-13 04-08 [facility] mg/mL 00:00: 23:59 mouth. Medic al solution 00 :00 [facility] levETIRAcet 2021-0 2023- No 500mg Take [address] [facility] am (KEPPRA) 4-13 04-08 [facility] 100 mg/mL 00:00: 23:59 mouth. Medic al solution 00 :00 [place] levETIRAcet 2021-0 3- No 500mg Take [address] [facility] am (KEPPRA) 4-13 04-08 [facility] mg/mL 00:00: 23:59 mouth. Medic al solution 00 :00 [place] SUMAtriptan 2-0 Yes 20mg 20 mg by [...] Center n nasal spray SERTraline 2020-0 Yes [id number] 25mg Take 1 [facility] 25 mg 1-14 tablet by [facility] tablet 00:00: mouth [place] 00 daily. [facility] SERTraline 2020-0 Yes [id number] 25mg Take 1 [facility] 25 mg 1-14 tablet by [facility] tablet 00:00: mouth [place] 00 daily. [facility] SERTraline 2020-0 Yes [id number] 25mg Take 1 [facility] 25 mg 1-14 tablet by [facility] tablet 00:00: mouth [place] 00 daily. [facility] SERTraline 2020-0 Yes [id number] 25mg Take 1 [facility] 25 mg 1-14 tablet by [facility] tablet 00:00: mouth [place] 00 daily. [facility] SERTraline 2020-0 Yes [id number] 25mg Take 1 [facility] 25 mg 1-14 tablet by [facility] tablet 00:00: mouth [place] 00 daily. [facility] SERTraline 2020-0 Yes [id number] 25mg Take 1 [facility] 25 mg 1-14 tablet by [facility] tablet 00:00: mouth [place] 00 daily. [facility] SERTraline 2020-0 Yes [id number] 25mg Take 1 [facility] 25 mg 1-14 tablet by [facility] tablet 00:00: mouth [place] 00 daily. [facility] SERTraline 2020-0 Yes [id number] 25mg Take 1 [facility] 25 mg 1-14 tablet by [facility] tablet 00:00: mouth [place] 00 daily. [facility] SERTraline 2020-0 Yes [id number] 25mg Take 1 [facility] 25 mg 1-14 tablet by [facility] tablet 00:00: mouth [place] 00 daily. [facility] SERTraline 2020-0 Yes [id number] 25mg Take 1 [facility] 25 mg 1-14 tablet by [facility] tablet 00:00: mouth [place] 00 daily. [facility] SERTraline 2020-0 Yes [id number] 25mg Take 1 [facility] 25 mg 1-14 tablet by [facility] tablet 00:00: mouth [place] 00 daily. [facility] SERTraline 2020-0 Yes [id number] 25mg Take 1 [facility] 25 mg 1-14 tablet by [facility] tablet 00:00: mouth [place] 00 daily. [facility] SERTraline 2020-0 Yes [id number] 25mg Take 1 [facility] 25 mg 1-14 tablet by [facility] tablet 00:00: mouth [place] 00 daily. [facility] SERTraline 2020-0 Yes [id number] 25mg Take 1 [facility] 25 mg 1-14 tablet by [facility] tablet 00:00: mouth [place] [address] [facility] SERTraline 2020-0 Yes [id number] 25mg Take 1 [facility] 25 mg 1-14 tablet by [facility] tablet 00:00: mouth [place] [address] [facility] SERTraline 2020-0 Yes [id number] 25mg Take 1 [facility] 25 mg 1-14 tablet by [facility] tablet 00:00: mouth [place] 00 daily. [facility] SERTraline 2020-0 Yes [id number] 25mg Take 1 [facility] 25 mg 1-14 tablet by [facility] of tablet 00:00: mouth [place] 00 daily. [facility] SERTraline 2019-0 2021- No [id number] 25mg Take 1 [facility] 25 mg 1-14 12-05 tablet by [facility] of tablet 00:00: 00:00 mouth [place] 00 :00 daily. [facility] SERTraline 2019-0 2021- No [id number] 25mg Take 1 [facility] 25 mg 1-14 12-05 tablet by [facility] tablet 00:00: 00:00 mouth [place] 00 :00 daily. [facility] SERTraline 2019-0 2021- No [id number] 25mg Take 1 [facility] 25 mg 1-14 12-05 tablet by [facility] tablet 00:00: 00:00 mouth [place] 00 :00 daily. [facility] busPIRone 2020-0 Yes [id number] 15mg Take 1 [facility] 15 mg 1-13 tablet by [facility] tablet 00:00: mouth 2 (two) Medical times [facility] daily. busPIRone 2020-0 Yes [id number] 15mg Take 1 [facility] 15 mg 1-13 tablet by [facility] tablet 00:00: mouth 2 (two) [facility] times [facility] daily. busPIRone 2020-0 Yes [id number] 15mg Take 1 [facility] 15 mg 1-13 tablet by [facility] tablet 00:00: mouth 2 (two) [facility] times [facility] daily. busPIRone 2020-0 Yes [id number] 15mg Take 1 [facility] 15 mg 1-13 tablet by [facility] tablet 00:00: mouth 2 (two) [facility] times [facility] daily. busPIRone 2020-0 Yes [id number] 15mg Take 1 [facility] 15 mg 1-13 tablet by [facility] tablet 00:00: mouth 2 (two) [facility] times [facility] daily. busPIRone 2020-0 Yes [id number] 15mg Take 1 [facility] 15 mg 1-13 tablet by [facility] tablet 00:00: mouth 2 (two) [facility] times [facility] daily. busPIRone 2020-0 Yes [id number] 15mg Take 1 [facility] 15 mg 1-13 tablet by [facility] tablet 00:00: mouth (two) [facility] times [facility] daily. busPIRone 2020-0 Yes [id number] 15mg Take 1 [facility] 15 mg 1-13 tablet by [facility] tablet 00:00: mouth (two) [facility] times [facility] daily. busPIRone 2020-0 Yes [id number] 15mg Take 1 [facility] 15 mg 1-13 tablet by [facility] tablet 00:00: mouth (two) [facility] times [facility] daily. busPIRone 2020-0 Yes [id number] 15mg Take 1 [facility] 15 mg 1-13 tablet by [facility] tablet 00:00: mouth (two) [facility] times [facility] daily. busPIRone 2020-0 Yes [id number] 15mg Take 1 [facility] 15 mg 1-13 tablet by [facility] tablet 00:00: mouth (two) [facility] times [facility] daily. busPIRone 2020-0 Yes [id number] 15mg Take 1 [facility] 15 mg 1-13 tablet by [facility] tablet 00:00: mouth (two) [facility] times [facility] daily. busPIRone 2020-0 Yes [id number] 15mg Take 1 [facility] 15 mg 1-13 tablet by [facility] tablet 00:00: mouth (two) [facility] times [facility] daily. busPIRone 2020-0 Yes [id number] 15mg Take 1 [facility] 15 mg 1-13 tablet by [facility] tablet 00:00: mouth (two) [facility] times [facility] daily. busPIRone 2020-0 Yes [id number] 15mg Take 1 [facility] 15 mg 1-13 tablet by [facility] tablet 00:00: mouth (two) [facility] times [facility] daily. busPIRone 2020-0 Yes [id number] 15mg Take 1 [facility] 15 mg 1-13 tablet by [facility] tablet 00:00: mouth (two) [facility] times [facility] daily. busPIRone 2020-0 Yes [id number] 15mg Take 1 [facility] 15 mg 1-13 tablet by [facility] tablet 00:00: mouth [place] (two) Medical times [facility] daily. busPIRone 2020-0 Yes [id number] 15mg Take 1 [facility] 15 mg 1-13 tablet by [facility] tablet 00:00: mouth (two) [facility] times [facility] daily. busPIRone 2020-0 Yes [id number] 15mg Take 1 [facility] 15 mg 1-13 tablet by [facility] tablet 00:00: mouth (two) [facility] times [facility] daily. busPIRone 2020-0 Yes [id number] 15mg Take 1 [facility] 15 mg 1-13 tablet by [facility] tablet 00:00: mouth (two) [facility] times [facility] daily. busPIRone 2020-0 Yes [id number] 15mg Take 1 [facility] 15 mg 1-13 tablet by [facility] tablet 00:00: mouth (two) [facility] times [facility] daily. busPIRone 2020-0 Yes [id number] 15mg Take 1 [facility] 15 mg 1-13 tablet by [facility] tablet 00:00: mouth (two) [facility] times [facility] daily. busPIRone 2020-0 Yes [id number] 15mg Take 1 [facility] 15 mg 1-13 tablet by [facility] tablet 00:00: mouth (two) [facility] times [facility] daily. busPIRone 2020-0 Yes [id number] 15mg Take 1 [facility] 15 mg 1-13 tablet by [facility] tablet 00:00: mouth (two) [facility] times [facility] daily. busPIRone 2020-0 Yes [id number] 15mg Take 1 [facility] 15 mg 1-13 tablet by [facility] tablet 00:00: mouth (two) [facility] times [facility] daily. busPIRone 2020-0 Yes [id number] 15mg Take 1 [facility] 15 mg 1-13 tablet by [facility] tablet 00:00: mouth (two) [facility] times [facility] daily. busPIRone 2020-0 Yes [id number] 15mg Take 1 [facility] 15 mg 1-13 tablet by [facility] tablet 00:00: mouth (two) [facility] times [facility] daily. busPIRone 2020-0 Yes [id number] 15mg Take 1 [facility] 15 mg 1-13 tablet by [facility] tablet 00:00: mouth (two) [facility] times [facility] daily. busPIRone 2020-0 Yes [id number] 15mg Take 1 [facility] 15 mg 1-13 tablet by [facility] tablet 00:00: mouth (two) [facility] times [facility] daily. busPIRone 2020-0 Yes [id number] 15mg Take 1 [facility] 15 mg 1-13 tablet by [facility] tablet 00:00: mouth (two) [facility] times [facility] daily. busPIRone 2020-0 Yes [id number] 15mg Take 1 [facility] 15 mg 1-13 tablet by [facility] tablet 00:00: mouth (two) [facility] times [facility] daily. busPIRone 2020-0 Yes [id number] 15mg Take 1 [facility] 15 mg 1-13 tablet by [facility] tablet 00:00: mouth (two) [facility] times [facility] daily. busPIRone 2020-0 Yes [id number] 15mg Take 1 [facility] 15 mg 1-13 tablet by [facility] tablet 00:00: mouth (two) [facility] times [facility] daily. busPIRone 2020-0 Yes [id number] 15mg Take 1 [facility] 15 mg 1-13 tablet by [facility] tablet 00:00: mouth (two) [facility] times [facility] daily. busPIRone 2020-0 Yes [id number] 15mg Take 1 [facility] 15 mg 1-13 tablet by [facility] tablet 00:00: mouth (two) Medical times [facility] daily. busPIRone 2020-0 Yes [id number] 15mg Take 1 [facility] 15 mg 1-13 tablet by [facility] tablet 00:00: mouth (two) [facility] times [facility] daily. busPIRone 2020-0 Yes [id number] 15mg Take 1 [facility] 15 mg 1-13 tablet by [facility] tablet 00:00: mouth (two) [facility] times [facility] daily. busPIRone 2020-0 Yes [id number] 15mg Take 1 [facility] 15 mg 1-13 tablet by [facility] tablet 00:00: mouth 2 (two) Medical times [facility] daily. busPIRone 2020-0 Yes [id number] 15mg Take 1 [facility] 15 mg 1-13 tablet by [facility] tablet 00:00: mouth (two) [facility] times [facility] daily. busPIRone 2020-0 Yes [id number] 15mg Take 1 [facility] 15 mg 1-13 tablet by [facility] tablet 00:00: mouth (two) [facility] times [facility] daily. busPIRone 2020-0 Yes [id number] 15mg Take 1 [facility] 15 mg 1-13 tablet by [facility] tablet 00:00: mouth (two) Medical times [facility] daily. busPIRone 2020-0 Yes [id number] 15mg Take 1 [facility] 15 mg 1-13 tablet by [facility] tablet 00:00: mouth (two) [facility] times [facility] daily. busPIRone 2020-0 Yes [id number] 15mg Take 1 [facility] 15 mg 1-13 tablet by [facility] tablet 00:00: mouth (two) Medical times [facility] daily. busPIRone 2020-0 Yes [id number] 15mg Take 1 [facility] 15 mg 1-13 tablet by [facility] tablet 00:00: mouth (two) [facility] times [facility] daily. busPIRone 2020-0 Yes [id number] 15mg Take 1 [facility] 15 mg 1-13 tablet by [facility] tablet 00:00: mouth (two) Medical times [facility] daily. busPIRone 2020-0 Yes [id number] 15mg Take 1 [facility] 15 mg 1-13 tablet by [facility] tablet 00:00: mouth (two) Medical times [facility] daily. busPIRone 2020-0 Yes [id number] 15mg Take 1 [facility] 15 mg 1-13 tablet by [facility] tablet 00:00: mouth (two) Medical times [facility] daily. busPIRone 2020-0 Yes [id number] 15mg Take 1 [facility] 15 mg 1-13 tablet by [facility] tablet 00:00: mouth (two) Medical times [facility] daily. busPIRone 2020-0 Yes [id number] 15mg Take 1 [facility] 15 mg 1-13 tablet by [facility] tablet 00:00: mouth (two) Medical times [facility] daily. busPIRone 2020-0 Yes [id number] 15mg Take 1 [facility] 15 mg 1-13 tablet by [facility] tablet 00:00: mouth 2 [place] 00 (two) Medical times [facility] daily. busPIRone 2020-0 Yes [id number] 15mg Take 1 [facility] 15 mg 1-13 tablet by [facility] tablet 00:00: mouth (two) Medical times [facility] daily. busPIRone 2020-0 Yes [id number] 15mg Take 1 [facility] 15 mg 1-13 tablet by [facility] tablet 00:00: mouth (two) Medical times [facility] daily. busPIRone 2020-0 Yes [id number] 15mg Take 1 [facility] 15 mg 1-13 tablet by [facility] tablet 00:00: mouth (two) Medical times [facility] daily. busPIRone 2020-0 Yes [id number] 15mg Take 1 [facility] 15 mg 1-13 tablet by [facility] tablet 00:00: mouth (two) [facility] times [facility] daily. busPIRone 2020-0 Yes [id number] 15mg Take 1 [facility] 15 mg 1-13 tablet by [facility] tablet 00:00: mouth (two) [facility] times [facility] daily. busPIRone 2020-0 Yes [id number] 15mg Take 1 [facility] 15 mg 1-13 tablet by [facility] tablet 00:00: mouth (two) Medical times [facility] daily. busPIRone 2020-0 Yes [id number] 15mg Take 1 [facility] 15 mg 1-13 tablet by [facility] tablet 00:00: mouth (two) Medical times [facility] daily. busPIRone 2020-0 Yes [id number] 15mg Take 1 [facility] 15 mg 1-13 tablet by [facility] tablet 00:00: mouth (two) Medical times [facility] daily. busPIRone 2020-0 Yes [id number] 15mg Take 1 [facility] 15 mg 1-13 tablet by [facility] tablet 00:00: mouth (two) Medical times [facility] daily. busPIRone 2020-0 Yes [id number] 15mg Take 1 [facility] 15 mg 1-13 tablet by [facility] tablet 00:00: mouth 2 (two) Medical times [facility] daily. busPIRone 2020-0 Yes [id number] 15mg Take 1 [facility] 15 mg 1-13 tablet by [facility] tablet 00:00: mouth 2 (two) Medical times [facility] daily. busPIRone 2020-0 Yes [id number] 15mg Take 1 [facility] 15 mg 1-13 tablet by [facility] tablet 00:00: mouth (two) Medical times [facility] daily. busPIRone 2020-0 Yes [id number] 15mg Take 1 [facility] 15 mg 1-13 tablet by [facility] tablet 00:00: mouth (two) Medical times [facility] daily. busPIRone 2020-0 Yes [id number] 15mg Take 1 [facility] 15 mg 1-13 tablet by [facility] tablet 00:00: mouth (two) Medical times [facility] daily. busPIRone 2020-0 Yes [id number] 15mg Take 1 [facility] 15 mg 1-13 tablet by [facility] tablet 00:00: mouth (two) Medical times [facility] daily. busPIRone 2020-0 Yes [id number] 15mg Take 1 [facility] 15 mg 1-13 tablet by [facility] tablet 00:00: mouth (two) Medical times [facility] daily. busPIRone 2020-0 Yes [id number] 15mg Take 1 [facility] 15 mg 1-13 tablet by [facility] tablet 00:00: mouth [place] (two) Medical times [facility] daily. busPIRone 2020-0 Yes [id number] 15mg Take 1 [facility] 15 mg 1-13 tablet by [facility] tablet 00:00: mouth (two) Medical times [facility] daily. busPIRone 2020-0 Yes [id number] 15mg Take 1 [facility] 15 mg 1-13 tablet by [facility] tablet 00:00: mouth [place] (two) Medical times [facility] daily. busPIRone 2020-0 Yes [id number] 15mg Take 1 [facility] 15 mg 1-13 tablet by [facility] tablet 00:00: mouth (two) Medical times [facility] daily. busPIRone 2020-0 Yes [id number] 15mg Take 1 [facility] 15 mg 1-13 tablet by [facility] tablet 00:00: mouth (two) Medical times [facility] daily. busPIRone 2020-0 Yes [id number] 15mg Take 1 [facility] 15 mg 1-13 tablet by [facility] tablet 00:00: mouth (two) Medical times [facility] daily. busPIRone 2020-0 Yes [id number] 15mg Take 1 [facility] 15 mg 1-13 tablet by [facility] tablet 00:00: mouth (two) Medical times [facility] daily. busPIRone 2020-0 Yes [id number] 15mg Take 1 [facility] 15 mg 1-13 tablet by [facility] tablet 00:00: mouth (two) Medical times [facility] daily. busPIRone 2020-0 Yes [id number] 15mg Take 1 [facility] 15 mg 1-13 tablet by [facility] tablet 00:00: mouth (two) Medical times [facility] daily. busPIRone 2020-0 Yes [id number] 15mg Take 1 [facility] 15 mg 1-13 tablet by [facility] tablet 00:00: mouth (two) Medical times [facility] daily. busPIRone 2020-0 Yes [id number] 15mg Take 1 [facility] 15 mg 1-13 tablet by [facility] tablet 00:00: mouth (two) Medical times [facility] daily. busPIRone 2020-0 Yes [id number] 15mg Take 1 [facility] 15 mg 1-13 tablet by [facility] tablet 00:00: mouth (two) Medical times [facility] daily. busPIRone 2020-0 Yes [id number] 15mg Take 1 [facility] 15 mg 1-13 tablet by [facility] tablet 00:00: mouth (two) Medical times [facility] daily. busPIRone 2020-0 Yes [id number] 15mg Take 1 [facility] 15 mg 1-13 tablet by [facility] tablet 00:00: mouth (two) Medical times [facility] daily. busPIRone 2020-0 Yes [id number] 15mg Take 1 [facility] 15 mg 1-13 tablet by [facility] tablet 00:00: mouth (two) Medical times [facility] daily. busPIRone 2020-0 Yes [id number] 15mg Take 1 [facility] 15 mg 1-13 tablet by [facility] tablet 00:00: mouth (two) Medical times [facility] daily. busPIRone 2020-0 Yes [id number] 15mg Take 1 [facility] 15 mg 1-13 tablet by [facility] tablet 00:00: mouth (two) Medical times [facility] daily. busPIRone 2020-0 Yes [id number] 15mg Take 1 [facility] 15 mg 1-13 tablet by [facility] tablet 00:00: mouth (two) Medical times [facility] daily. busPIRone 2020-0 Yes [id number] 15mg Take 1 [facility] 15 mg 1-13 tablet by [facility] tablet 00:00: mouth (two) Medical times [facility] daily. busPIRone 2020-0 Yes [id number] 15mg Take 1 [facility] 15 mg 1-13 tablet by [facility] tablet 00:00: mouth (two) Medical times [facility] daily. busPIRone 2020-0 Yes [id number] 15mg Take 1 [facility] 15 mg 1-13 tablet by [facility] tablet 00:00: mouth (two) Medical times [facility] daily. busPIRone 2020-0 Yes [id number] 15mg Take 1 [facility] 15 mg 1-13 tablet by [facility] tablet 00:00: mouth (two) Medical times [facility] daily. busPIRone 2020-0 Yes [id number] 15mg Take 1 [facility] 15 mg 1-13 tablet by [facility] tablet 00:00: mouth (two) Medical times [facility] daily. busPIRone 2020-0 Yes [id number] 15mg Take 1 [facility] 15 mg 1-13 tablet by [facility] tablet 00:00: mouth (two) Medical times [facility] daily. busPIRone 2020-0 Yes [id number] 15mg Take 1 [facility] 15 mg 1-13 tablet by [facility] tablet 00:00: mouth (two) Medical times [facility] daily. busPIRone 2020-0 Yes [id number] 15mg Take 1 [facility] 15 mg 1-13 tablet by [facility] tablet 00:00: mouth (two) Medical times [facility] daily. busPIRone 2020-0 Yes [id number] 15mg Take 1 [facility] 15 mg 1-13 tablet by [facility] tablet 00:00: mouth (two) Medical times [facility] daily. busPIRone 2020-0 Yes [id number] 15mg Take 1 [facility] 15 mg 1-13 tablet by [facility] tablet 00:00: mouth (two) Medical times [facility] daily. busPIRone 2020-0 Yes [id number] 15mg Take 1 [facility] 15 mg 1-13 tablet by [facility] tablet 00:00: mouth (two) Medical times [facility] daily. busPIRone 2020-0 Yes [id number] 15mg Take 1 [facility] 15 mg 1-13 tablet by [facility] tablet 00:00: mouth (two) Medical times [facility] daily. busPIRone 2020-0 Yes [id number] 15mg Take 1 [facility] 15 mg 1-13 tablet by [facility] tablet 00:00: mouth (two) Medical times [facility] daily. busPIRone 2020-0 Yes [id number] 15mg Take 1 [facility] 15 mg 1-13 tablet by [facility] tablet 00:00: mouth (two) Medical times [facility] daily. busPIRone 2020-0 Yes [id number] 15mg Take 1 [facility] 15 mg 1-13 tablet by [facility] tablet 00:00: mouth (two) Medical times [facility] daily. busPIRone 2020-0 Yes [id number] 15mg Take 1 [facility] 15 mg 1-13 tablet by [facility] tablet 00:00: mouth [place] (two) Medical times [facility] daily. busPIRone 2020-0 Yes [id number] 15mg Take 1 [facility] 15 mg 1-13 tablet by [facility] tablet 00:00: mouth [place] (two) Medical times [facility] daily. busPIRone 2020-0 Yes [id number] 15mg Take 1 [facility] 15 mg 1-13 tablet by [facility] tablet 00:00: mouth (two) Medical times [facility] daily. busPIRone 2020-0 Yes [id number] 15mg Take 1 [facility] 15 mg 1-13 tablet by [facility] tablet 00:00: mouth [place] (two) Medical times [facility] daily. busPIRone 2020-0 Yes [id number] 15mg Take 1 [facility] 15 mg 1-13 tablet by [facility] tablet 00:00: mouth [place] (two) Medical times [facility] daily. busPIRone 2020-0 Yes [id number] 15mg Take 1 [facility] 15 mg 1-13 tablet by [facility] tablet 00:00: mouth (two) Medical times [facility] daily. busPIRone 2020-0 Yes [id number] 15mg Take 1 [facility] 15 mg 1-13 tablet by [facility] tablet 00:00: mouth (two) Medical times [facility] daily. busPIRone 2020-0 Yes [id number] 15mg Take 1 [facility] 15 mg 1-13 tablet by [facility] tablet 00:00: mouth (two) Medical times [facility] daily. busPIRone 2020-0 Yes [id number] 15mg Take 1 [facility] 15 mg 1-13 tablet by [facility] tablet 00:00: mouth (two) Medical times [facility] daily. busPIRone 2020-0 Yes [id number] 15mg Take 1 [facility] 15 mg 1-13 tablet by [facility] tablet 00:00: mouth (two) Medical times [facility] daily. busPIRone 2020-0 Yes [id number] 15mg Take 1 [facility] 15 mg 1-13 tablet by [facility] tablet 00:00: mouth (two) Medical times [facility] daily. busPIRone 2020-0 Yes [id number] 15mg Take 1 [facility] 15 mg 1-13 tablet by [facility] tablet 00:00: mouth (two) Medical times [facility] daily. busPIRone 2020-0 Yes [id number] 15mg Take 1 [facility] 15 mg 1-13 tablet by [facility] tablet 00:00: mouth (two) Medical times [facility] daily. busPIRone 2020-0 Yes [id number] 15mg Take 1 [facility] 15 mg 1-13 tablet by [facility] tablet 00:00: mouth (two) Medical times [facility] daily. busPIRone 2020-0 Yes [id number] 15mg Take 1 [facility] 15 mg 1-13 tablet by [facility] tablet 00:00: mouth (two) Medical times [facility] daily. busPIRone 2020-0 Yes [id number] 15mg Take 1 [facility] 15 mg 1-13 tablet by [facility] tablet 00:00: mouth (two) Medical times [facility] daily. busPIRone 2020-0 Yes [id number] 15mg Take 1 [facility] 15 mg 1-13 tablet by [facility] tablet 00:00: mouth (two) Medical times [facility] daily. busPIRone 2020-0 Yes [id number] 15mg Take 1 [facility] 15 mg 1-13 tablet by [facility] tablet 00:00: mouth (two) Medical times [facility] daily. busPIRone 2020-0 Yes [id number] 15mg Take 1 [facility] 15 mg 1-13 tablet by [facility] tablet 00:00: mouth (two) Medical times [facility] daily. busPIRone 2020-0 Yes [id number] 15mg Take 1 [facility] 15 mg 1-13 tablet by [facility] tablet 00:00: mouth (two) Medical times [facility] daily. busPIRone 2020-0 Yes [id number] 15mg Take 1 [facility] 15 mg 1-13 tablet by [facility] tablet 00:00: mouth (two) Medical times [facility] daily. busPIRone 2020-0 Yes [id number] 15mg Take 1 [facility] 15 mg 1-13 tablet by [facility] tablet 00:00: mouth (two) Medical times [facility] daily. busPIRone 2020-0 Yes [id number] 15mg Take 1 [facility] 15 mg 1-13 tablet by [facility] tablet 00:00: mouth (two) Medical times [facility] daily. busPIRone 2020-0 Yes [id number] 15mg Take 1 [facility] 15 mg 1-13 tablet by [facility] tablet 00:00: mouth (two) Medical times [facility] daily. busPIRone 2020-0 Yes [id number] 15mg Take 1 [facility] 15 mg 1-13 tablet by [facility] tablet 00:00: mouth (two) Medical times [facility] daily. busPIRone 2020-0 Yes [id number] 15mg Take 1 [facility] 15 mg 1-13 tablet by [facility] tablet 00:00: mouth (two) Medical times [facility] daily. busPIRone 2020-0 Yes [id number] 15mg Take 1 [facility] 15 mg 1-13 tablet by [facility] tablet 00:00: mouth (two) Medical times [facility] daily. busPIRone 2020-0 Yes [id number] 15mg Take 1 [facility] 15 mg 1-13 tablet by [facility] tablet 00:00: mouth (two) Medical times [facility] daily. busPIRone 2020-0 Yes [id number] 15mg Take 1 [facility] 15 mg 1-13 tablet by [facility] tablet 00:00: mouth (two) Medical times [facility] daily. busPIRone 2020-0 Yes [id number] 15mg Take 1 [facility] 15 mg 1-13 tablet by [facility] tablet 00:00: mouth (two) Medical times [facility] daily. busPIRone 2020-0 Yes [id number] 15mg Take 1 [facility] 15 mg 1-13 tablet by [facility] tablet 00:00: mouth (two) [facility] times [facility] daily. busPIRone 2020-0 Yes [id number] 15mg Take 1 [facility] 15 mg 1-13 tablet by [facility] tablet 00:00: mouth (two) Medical times [facility] daily. busPIRone 2020-0 Yes [id number] 15mg Take 1 [facility] 15 mg 1-13 tablet by [facility] tablet 00:00: mouth (two) Medical times [facility] daily. busPIRone 2020-0 Yes [id number] 15mg Take 1 [facility] 15 mg 1-13 tablet by [facility] tablet 00:00: mouth (two) Medical times [facility] daily. busPIRone 2020-0 Yes [id number] 15mg Take 1 [facility] 15 mg 1-13 tablet by [facility] tablet 00:00: mouth (two) Medical times [facility] daily. busPIRone 2020-0 Yes [id number] 15mg Take 1 [facility] 15 mg 1-13 tablet by [facility] tablet 00:00: mouth (two) Medical times [facility] daily. busPIRone 2020-0 Yes [id number] 15mg Take 1 [facility] 15 mg 1-13 tablet by [facility] tablet 00:00: mouth (two) Medical times [facility] daily. busPIRone 2020-0 Yes [id number] 15mg Take 1 [facility] 15 mg 1-13 tablet by [facility] tablet 00:00: mouth (two) Medical times [facility] daily. busPIRone 2020-0 Yes [id number] 15mg Take 1 [facility] 15 mg 1-13 tablet by [facility] tablet 00:00: mouth (two) Medical times [facility] daily. busPIRone 2020-0 Yes [id number] 15mg Take 1 [facility] 15 mg 1-13 tablet by [facility] tablet 00:00: mouth (two) Medical times [facility] daily. busPIRone 2020-0 Yes [id number] 15mg Take 1 [facility] 15 mg 1-13 tablet by [facility] tablet 00:00: mouth (two) Medical times [facility] daily. busPIRone 2020-0 Yes [id number] 15mg Take 1 [facility] 15 mg 1-13 tablet by [facility] tablet 00:00: mouth (two) Medical times [facility] daily. busPIRone 2020-0 Yes [id number] 15mg Take 1 [facility] 15 mg 1-13 tablet by [facility] tablet 00:00: mouth (two) Medical times [facility] daily. busPIRone 2020-0 Yes [id number] 15mg Take 1 [facility] 15 mg 1-13 tablet by [facility] tablet 00:00: mouth (two) Medical times [facility] daily. busPIRone 2020-0 Yes [id number] 15mg Take 1 [facility] 15 mg 1-13 tablet by [facility] tablet 00:00: mouth (two) Medical times [facility] daily. busPIRone 2020-0 Yes [id number] 15mg Take 1 [facility] 15 mg 1-13 tablet by [facility] tablet 00:00: mouth (two) Medical times [facility] daily. busPIRone 2020-0 Yes [id number] 15mg Take 1 [facility] 15 mg 1-13 tablet by [facility] tablet 00:00: mouth (two) Medical times [facility] daily. busPIRone 2020-0 Yes [id number] 15mg Take 1 [facility] 15 mg 1-13 tablet by [facility] tablet 00:00: mouth (two) Medical times [facility] daily. busPIRone 2020-0 Yes [id number] 15mg Take 1 [facility] 15 mg 1-13 tablet by [facility] tablet 00:00: mouth 2 (two) Medical times [facility] daily. busPIRone 2020-0 Yes [id number] 15mg Take 1 [facility] 15 mg 1-13 tablet by [facility] tablet 00:00: mouth [place] (two) Medical times [facility] daily. busPIRone 2020-0 Yes [id number] 15mg Take 1 [facility] 15 mg 1-13 tablet by [facility] tablet 00:00: mouth [place] (two) Medical times [facility] daily. busPIRone 2020-0 Yes [id number] 15mg Take 1 [facility] 15 mg 1-13 tablet by [facility] tablet 00:00: mouth (two) Medical times [facility] daily. busPIRone 2020-0 Yes [id number] 15mg Take 1 [facility] 15 mg 1-13 tablet by [facility] tablet 00:00: mouth [place] (two) Medical times [facility] daily. busPIRone 2020-0 Yes [id number] 15mg Take 1 [facility] 15 mg 1-13 tablet by [facility] tablet 00:00: mouth [place] (two) Medical times [facility] daily. busPIRone 2020-0 Yes [id number] 15mg Take 1 [facility] 15 mg 1-13 tablet by [facility] tablet 00:00: mouth [place] (two) Medical times [facility] daily. busPIRone 2020-0 Yes [id number] 15mg Take 1 [facility] 15 mg 1-13 tablet by [facility] tablet 00:00: mouth [place] (two) Medical times [facility] daily. busPIRone 2020-0 Yes [id number] 15mg Take 1 [facility] 15 mg 1-13 tablet by [facility] tablet 00:00: mouth [place] (two) Medical times [facility] daily. busPIRone 2020-0 Yes [id number] 15mg Take 1 [facility] 15 mg 1-13 tablet by [facility] tablet 00:00: mouth [place] (two) Medical times [facility] daily. busPIRone 2020-0 Yes [id number] 15mg Take 1 [facility] 15 mg 1-13 tablet by [facility] tablet 00:00: mouth [place] (two) Medical times [facility] daily. busPIRone 2020-0 Yes [id number] 15mg Take 1 [facility] 15 mg 1-13 tablet by [facility] tablet 00:00: mouth (two) Medical times [facility] daily. busPIRone 2020-0 Yes [id number] 15mg Take 1 [facility] 15 mg 1-13 tablet by [facility] tablet 00:00: mouth (two) Medical times [facility] daily. busPIRone 2020-0 Yes [id number] 15mg Take 1 [facility] 15 mg 1-13 tablet by [facility] tablet 00:00: mouth (two) Medical times [facility] daily. busPIRone 2020-0 Yes [id number] 15mg Take 1 [facility] 15 mg 1-13 tablet by [facility] tablet 00:00: mouth (two) Medical times [facility] daily. busPIRone 2020-0 Yes [id number] 15mg Take 1 [facility] 15 mg 1-13 tablet by [facility] tablet 00:00: mouth (two) Medical times [facility] daily. busPIRone 2020-0 Yes [id number] 15mg Take 1 [facility] 15 mg 1-13 tablet by [facility] tablet 00:00: mouth (two) Medical times [facility] daily. busPIRone 2020-0 Yes [id number] 15mg Take 1 [facility] 15 mg 1-13 tablet by [facility] tablet 00:00: mouth (two) Medical times [facility] daily. busPIRone 2020-0 Yes [id number] 15mg Take 1 [facility] 15 mg 1-13 tablet by [facility] tablet 00:00: mouth (two) Medical times [facility] daily. busPIRone 2020-0 Yes [id number] 15mg Take 1 [facility] 15 mg 1-13 tablet by [facility] tablet 00:00: mouth (two) Medical times [facility] daily. busPIRone 2020-0 Yes [id number] 15mg Take 1 [facility] 15 mg 1-13 tablet by [facility] tablet 00:00: mouth (two) Medical times [facility] daily. busPIRone 2020-0 Yes [id number] 15mg Take 1 [facility] 15 mg 1-13 tablet by [facility] tablet 00:00: mouth (two) Medical times [facility] daily. busPIRone 2020-0 Yes [id number] 15mg Take 1 [facility] 15 mg 1-13 tablet by [facility] tablet 00:00: mouth (two) Medical times [facility] daily. busPIRone 2020-0 Yes [id number] 15mg Take 1 [facility] 15 mg 1-13 tablet by [facility] tablet 00:00: mouth (two) Medical times [facility] daily. busPIRone 2020-0 Yes [id number] 15mg Take 1 [facility] 15 mg 1-13 tablet by [facility] tablet 00:00: mouth (two) Medical times [facility] daily. busPIRone 2020-0 Yes [id number] 15mg Take 1 [facility] 15 mg 1-13 tablet by [facility] tablet 00:00: mouth (two) Medical times [facility] daily. busPIRone 2020-0 Yes [id number] 15mg Take 1 [facility] 15 mg 1-13 tablet by [facility] tablet 00:00: mouth (two) Medical times [facility] daily. busPIRone 2020-0 Yes [id number] 15mg Take 1 [facility] 15 mg 1-13 tablet by [facility] tablet 00:00: mouth (two) Medical times [facility] daily. busPIRone 2020-0 Yes [id number] 15mg Take 1 [facility] 15 mg 1-13 tablet by [facility] of tablet 00:00: mouth (two) Medical times Branch daily. busPIRone 2020-0 Yes [id number] 15mg Take 1 [facility] 15 mg 1-13 tablet by [facility]y of tablet 00:00: mouth (two) Medical times Branch daily. busPIRone 2020-0 Yes [id number] 15mg Take 1 [facility] 15 mg 1-13 tablet by [facility]y of tablet 00:00: mouth (two) Medical times Branch daily. busPIRone 2020-0 Yes [id number] 15mg Take 1 [facility] 15 mg 1-13 tablet by ity of tablet 00:00: mouth (two) Medical times Branch daily. busPIRone 2020-0 Yes [id number] 15mg Take 1 [facility] 15 mg 1-13 tablet by [facility]y of tablet 00:00: mouth (two) Medical times Branch daily. busPIRone 2020-0 Yes [id number] 15mg Take 1 [facility] 15 mg 1-13 tablet by [facility]y of tablet 00:00: mouth (two) Medical times Branch daily. busPIRone 2020-0 Yes [id number] 15mg Take 1 [facility] 15 mg 1-13 tablet by [facility]y of tablet 00:00: mouth (two) Medical times Branch daily. busPIRone 2020-0 Yes [id number] 15mg Take 1 [facility] 15 mg 1-13 tablet by [facility]y of tablet 00:00: mouth (two) Medical times Branch daily. busPIRone 2020-0 Yes [id number] 15mg Take 1 [facility] 15 mg 1-13 tablet by [facility]y of tablet 00:00: mouth (two) Medical times Branch daily. busPIRone 2020-0 Yes [id number] 15mg Take 1 [facility] 15 mg 1-13 tablet by [facility]y of tablet 00:00: mouth (two) Medical times Branch daily. busPIRone 2020-0 Yes [id number] 15mg Take 1 [facility] 15 mg 1-13 tablet by ity of tablet 00:00: mouth (two) Medical times Branch daily. busPIRone 2020-0 Yes [id number] 15mg Take 1 [facility] 15 mg 1-13 tablet by ity of tablet 00:00: mouth (two) Medical times Branch daily. busPIRone 2020-0 Yes [id number] 15mg Take 1 [facility] 15 mg 1-13 tablet by ity of tablet 00:00: mouth (two) Medical times Branch daily. busPIRone 2020-0 Yes [id number] 15mg Take 1 [facility] 15 mg 1-13 tablet by ity of tablet 00:00: mouth (two) Medical times Branch daily. busPIRone 2020-0 Yes [id number] 15mg Take 1 [facility] 15 mg 1-13 tablet by ity of tablet 00:00: mouth (two) Medical times Branch daily. busPIRone 2020-0 Yes [id number] 15mg Take 1 [facility] 15 mg 1-13 tablet by ity of tablet 00:00: mouth (two) Medical times Branch daily. busPIRone 2020-0 Yes [id number] 15mg Take 1 [facility] 15 mg 1-13 tablet by ity of tablet 00:00: mouth 2 (two) Medical times Branch daily. busPIRone 2020-0 Yes [id number] 15mg Take 1 [facility] 15 mg 1-13 tablet by ity of tablet 00:00: mouth 2 (two) Medical times Branch daily. busPIRone 2020-0 Yes [id number] 15mg Take 1 [facility] 15 mg 1-13 tablet by ity of tablet 00:00: mouth 2 (two) Medical times Branch daily. busPIRone 2020-0 Yes [id number] 15mg Take 1 [facility] 15 mg 1-13 tablet by ity of tablet 00:00: mouth 2 (two) Medical times Branch daily. busPIRone 2020-0 Yes [id number] 15mg Take 1 [facility] 15 mg 1-13 tablet by ity of tablet 00:00: mouth 2 [place] (two) Medical times Branch daily. amantadine 2018- Yes [id number] 200mg Take 20 mL [facility] HCl 50 mg/5 0-18 by mouth 2 it y of mL solution 00:00: (two) [place] 00 times Medical daily. Branch amantadine 2018-07 Yes [id number] 200mg Take 20 mL [facility] HCl 50 mg/5 0-18 by mouth 2 it y of mL solution 00:00: (two) [place] 00 times Medical daily. Branch amantadine 2018- Yes [id number] 200mg Take 20 mL [facility] HCl 50 mg/5 0-18 by mouth 2 it y of mL solution 00:00: (two) [place] 00 times Medical daily. Branch amantadine 2018- Yes [id number] 200mg Take 20 mL [facility] HCl 50 mg/5 0-18 by mouth 2 it y of mL solution 00:00: (two) [place] 00 times Medical daily. Branch amantadine 2018- Yes [id number] 200mg Take 20 mL [facility] HCl 50 mg/5 0-18 by mouth 2 it y of mL solution 00:00: (two) [place] 00 times Medical daily. Branch amantadine 2018- Yes [id number] 200mg Take 20 mL [facility] HCl 50 mg/5 0-18 by mouth 2 it y of mL solution 00:00: (two) [place] 00 times Medical daily. Branch amantadine 2019- Yes [id number] 200mg Take 20 mL [facility] HCl 50 mg/5 0-18 by mouth 2 it y of mL solution 00:00: (two) [place] 00 times Medical daily. Branch amantadine 2019- Yes [id number] 200mg Take 20 mL [facility] HCl 50 mg/5 0-18 by mouth 2 it y of mL solution 00:00: (two) [place] 00 times Medical daily. Branch amantadine 2018- Yes [id number] 200mg Take 20 mL [facility] HCl 50 mg/5 0-18 by mouth 2 it y of mL solution 00:00: (two) [place] 00 times Medical daily. Branch amantadine 2018- Yes [id number] 200mg Take 20 mL [facility] HCl 50 mg/5 0-18 by mouth 2 it y of mL solution 00:00: (two) [place] 00 times Medical daily. Branch amantadine 2018- Yes [id number] 200mg Take 20 mL [facility] HCl 50 mg/5 0-18 by mouth 2 it y of mL solution 00:00: (two) [place] 00 times Medical daily. Branch amantadine 2018- Yes [id number] 200mg Take 20 mL [facility] HCl 50 mg/5 0-18 by mouth 2 it y of mL solution 00:00: (two) [place] 00 times Medical daily. Branch amantadine 2018- Yes [id number] 200mg Take 20 mL [facility] HCl 50 mg/5 0-18 by mouth 2 it y of mL solution 00:00: (two) [place] 00 times Medical daily. Branch amantadine 2018- Yes [id number] 200mg Take 20 mL [facility] HCl 50 mg/5 0-18 by mouth 2 it y of mL solution 00:00: (two) [place] 00 times Medical daily. Branch amantadine 2018- Yes [id number] 200mg Take 20 mL [facility] HCl 50 mg/5 0-18 by mouth 2 it y of mL solution 00:00: (two) [place] 00 times Medical daily. Branch amantadine 2018- Yes [id number] 200mg Take 20 mL [facility] HCl 50 mg/5 0-18 by mouth 2 it y of mL solution 00:00: (two) [place] 00 times Medical daily. Branch amantadine 2018- Yes [id number] 200mg Take 20 mL [facility] HCl 50 mg/5 0-18 by mouth 2 it y of mL solution 00:00: (two) [place] 00 times Medical daily. Branch amantadine 2018-07- No [id number] 200mg Take 20 mL [facility] HCl 50 mg/5 0-18 12-05 by mouth 2 i ty of mL solution 00:00: 00:[place] (two[place] :[place] times Medical daily. [facility] amantadine 2018-07- No [id number] 200mg Take 20 mL [facility] HCl 50 mg/5 0-18 12-05 by mouth 2 i ty of mL solution 00:00: 00:00 (two[place] 00 :00 times Medical daily. Branch amantadine 2018-07- No [id number] 200mg Take 20 mL [facility] HCl 50 mg/5 0-18 12-05 by mouth 2 i ty of mL solution 00:00: 00:00 (two[place] 00 :[place] times Medical daily. Branch risperiDONE 2018-07 Yes [id number] .5mg Take 2 [facility] (RISPERDAL) 0-16 tablets by it y of 0.25 mg 00:00: mouth 2 [place] tablet 00 (two) Medical times Branch daily. AM/PM risperiDONE 2018-07 Yes [id number] .5mg Take 2 [facility] (RISPERDAL) 0-16 tablets by it y of 0.25 mg 00:00: mouth 2 [place] tablet 00 (two) Medical times Branch daily. AM/PM risperiDONE 2018-07 Yes [id number] .5mg Take 2 [facility] (RISPERDAL) 0-16 tablets by it y of 0.25 mg 00:00: mouth 2 [place] tablet 00 (two) Medical times Branch daily. AM/PM risperiDONE 2018-07 Yes [id number] .5mg Take 2 [facility] (RISPERDAL) 0-16 tablets by it y of 0.25 mg 00:00: mouth 2 [place] tablet 00 (two) Medical times Branch daily. AM/PM risperiDONE 2018- Yes [id number] .5mg Take 2 [facility] (RISPERDAL) 0-16 tablets by it y of 0.25 mg 00:00: mouth 2 [place] tablet 00 (two) Medical times Branch daily. AM/PM risperiDONE 2018-07 Yes [id number] .5mg Take 2 [facility] (RISPERDAL) 0-16 tablets by it y of 0.25 mg 00:00: mouth 2 [place] tablet 00 (two) Medical times Branch daily. AM/PM risperiDONE 2018- Yes [id number] .5mg Take 2 [facility] (RISPERDAL) 0-16 tablets by it y of 0.25 mg 00:00: mouth 2 [place] tablet 00 (two) Medical times Branch daily. AM/PM amantadine 2018-07 Yes [id number] 200mg Take 2 [facility] HCl 100 mg 0-15 capsules ity o f capsule 00:00: by mouth 2 [place] 00 (two) Medical times Branch daily. ARIPiprazol 2018-07 Yes [id number] 2mg Take 1 [facility] e (ABILIFY) 0-15 tablet by ity of 2 mg tablet 00:00: mouth [place] 00 daily. Medical Branch amantadine 2018-07 Yes [id number] 200mg Take 2 [facility] HCl 100 mg 0-15 capsules ity o f capsule 00:00: by mouth 2 [place] 00 (two) Medical times Branch daily. ARIPiprazol 2018-07 Yes [id number] 2mg Take 1 [facility] e (ABILIFY) 0-15 tablet by ity of 2 mg tablet 00:00: mouth [place] 00 daily. Medical Branch amantadine 2018-07 Yes [id number] 200mg Take 2 [facility] HCl 100 mg 0-15 capsules ity o f capsule 00:00: by mouth 2 [place] 00 (two) Medical times Branch daily. ARIPiprazol 2018-07 Yes [id number] 2mg Take 1 [facility] e (ABILIFY) 0-15 tablet by ity of 2 mg tablet 00:00: mouth [place] 00 daily. Medical Branch amantadine 2018-07 Yes [id number] 200mg Take 2 [facility] HCl 100 mg 0-15 capsules ity o f capsule 00:00: by mouth 2 [place] 00 (two) Medical times Branch daily. amantadine 2018-07 Yes [id number] 200mg Take 2 [facility] HCl 100 mg 0-15 capsules ity o f capsule 00:00: by mouth 2 [place] 00 (two) Medical times Branch daily. amantadine 2018-07 Yes [id number] 200mg Take 2 [facility] HCl 100 mg 0-15 capsules ity o f capsule 00:00: by mouth 2 [place] 00 (two) Medical times Branch daily. amantadine 2018-07 Yes [id number] 200mg Take 2 [facility] HCl 100 mg 0-15 capsules ity o f capsule 00:00: by mouth 2 [place] 00 (two) Medical times Branch daily. amantadine 2018-07 Yes [id number] 200mg Take 2 [facility] HCl 100 mg 0-15 capsules ity o f capsule 00:00: by mouth 2 [place] 00 (two) Medical times Branch daily. amantadine 2018-07 Yes [id number] 200mg Take 2 [facility] HCl 100 mg 0-15 capsules ity o f capsule 00:00: by mouth 2 [place] 00 (two) Medical times Branch daily. amantadine 2018-07 Yes [id number] 200mg Take 2 [facility] HCl 100 mg 0-15 capsules ity o f capsule 00:00: by mouth 2 [place] 00 (two) Medical times Branch daily. amantadine 2018-07 Yes [id number] 200mg Take 2 [facility] HCl 100 mg 0-15 capsules ity o f capsule 00:00: by mouth 2 [place] 00 (two) Medical times Branch daily. amantadine 2018-07 Yes [id number] 200mg Take 2 [facility] HCl 100 mg 0-15 capsules ity o f capsule 00:00: by mouth 2 [place] 00 (two) Medical times Branch daily. amantadine 2018-07 Yes [id number] 200mg Take 2 [facility] HCl 100 mg 0-15 capsules ity o f capsule 00:00: by mouth 2 [place] 00 (two) Medical times Branch daily. amantadine 2018-07 Yes [id number] 200mg Take 2 [facility] HCl 100 mg 0-15 capsules ity o f capsule 00:00: by mouth 2 [place] 00 (two) Medical times Branch daily. amantadine 2018-07 Yes [id number] 200mg Take 2 [facility] HCl 100 mg 0-15 capsules ity o f capsule 00:00: by mouth 2 [place] 00 (two) Medical times Branch daily. amantadine 2018-07 Yes [id number] 200mg Take 2 [facility] HCl 100 mg 0-15 capsules ity o f capsule 00:00: by mouth 2 [place] 00 (two) Medical times Branch daily. amantadine 2018-07 Yes [id number] 200mg Take 2 [facility] HCl 100 mg 0-15 capsules ity o f capsule 00:00: by mouth 2 [place] 00 (two) Medical times Branch daily. amantadine 2018-07 Yes [id number] 200mg Take 2 [facility] HCl 100 mg 0-15 capsules ity o f capsule 00:00: by mouth 2 [place] 00 (two) Medical times Branch daily. amantadine 2018-07 Yes [id number] 200mg Take 2 [facility] HCl 100 mg 0-15 capsules ity o f capsule 00:00: by mouth 2 [place] 00 (two) Medical times Branch daily. amantadine 2018-07 Yes [id number] 200mg Take 2 [facility] HCl 100 mg 0-15 capsules ity o f capsule 00:00: by mouth 2 [place] 00 (two) Medical times Branch daily. amantadine 2018-07 Yes [id number] 200mg Take 2 [facility] HCl 100 mg 0-15 capsules ity o f capsule 00:00: by mouth 2 [place] 00 (two) Medical times Branch daily. ARIPiprazol 2018-07 Yes [id number] 2mg Take 1 [facility] e (ABILIFY) 0-15 tablet by ity of 2 mg tablet 00:00: mouth [place] 00 daily. Medical Branch amantadine 2018-07 Yes [id number] 200mg Take 2 [facility] HCl 100 mg 0-15 capsules ity o f capsule 00:00: by mouth 2 [place] 00 (two) Medical times Branch daily. ARIPiprazol 2018-07 Yes [id number] 2mg Take 1 [facility] e (ABILIFY) 0-15 tablet by ity of 2 mg tablet 00:00: mouth [place] 00 daily. Medical Branch amantadine 2018-07 Yes [id number] 200mg Take 2 [facility] HCl 100 mg 0-15 capsules ity o f capsule 00:00: by mouth 2 [place] 00 (two) Medical times Branch daily. ARIPiprazol 2018-07 Yes [id number] 2mg Take 1 [facility] e (ABILIFY) 0-15 tablet by ity of 2 mg tablet 00:00: mouth [place] 00 daily. Medical Branch amantadine 2018-07 Yes [id number] 200mg Take 2 [facility] HCl 100 mg 0-15 capsules ity o f capsule 00:00: by mouth 2 [place] 00 (two) Medical times Branch daily. ARIPiprazol 2018-07 Yes [id number] 2mg Take 1 [facility] e (ABILIFY) 0-15 tablet by ity of 2 mg tablet 00:00: mouth [place] 00 daily. Medical Branch amantadine 2018-07 Yes [id number] 200mg Take 2 [facility] HCl 100 mg 0-15 capsules ity o f capsule 00:00: by mouth 2 [place] 00 (two) Medical times Branch daily. ARIPiprazol 2018-07 Yes [id number] 2mg Take 1 [facility] e (ABILIFY) 0-15 tablet by ity of 2 mg tablet 00:00: mouth [place] 00 daily. Medical Branch amantadine 2018-07 Yes [id number] 200mg Take 2 [facility] HCl 100 mg 0-15 capsules ity o f capsule 00:00: by mouth 2 [place] 00 (two) Medical times Branch daily. ARIPiprazol 2018-07 Yes [id number] 2mg Take 1 [facility] e (ABILIFY) 0-15 tablet by ity of 2 mg tablet 00:00: mouth [place] [address] [facility] Branch amantadine 2018-07 Yes [id number] 200mg Take 2 [facility] HCl 100 mg 0-15 capsules ity o f capsule 00:00: by mouth 2 [place] 00 (two) Medical times Branch daily. ARIPiprazol 2018-07 Yes [id number] 2mg Take 1 [facility] e (ABILIFY) 0-15 tablet by ity of 2 mg tablet 00:00: mouth [place] [address] [facility] Branch amantadine 2018-07 Yes [id number] 200mg Take 2 [facility] HCl 100 mg 0-15 capsules ity o f capsule 00:00: by mouth 2 [place] 00 (two) Medical times Branch daily. ARIPiprazol 2018-07 Yes [id number] 2mg Take 1 [facility] e (ABILIFY) 0-15 tablet by ity of 2 mg tablet 00:00: mouth [place] 00 daily. Medical Branch amantadine 2018-07 Yes [id number] 200mg Take 2 [facility] HCl 100 mg 0-15 capsules ity o f capsule 00:00: by mouth 2 [place] 00 (two) Medical times Branch daily. ARIPiprazol 2018-07 Yes [id number] 2mg Take 1 [facility] e (ABILIFY) 0-15 tablet by ity of 2 mg tablet 00:00: mouth [place] [address] [facility] Branch amantadine 2018-07 Yes [id number] 200mg Take 2 [facility] HCl 100 mg 0-15 capsules ity o f capsule 00:00: by mouth 2 [place] 00 (two) Medical times Branch daily. ARIPiprazol 2018-07 Yes [id number] 2mg Take 1 [facility] e (ABILIFY) 0-15 tablet by ity of 2 mg tablet 00:00: mouth [place] [address] [facility] Branch amantadine 2018-07 Yes [id number] 200mg Take 2 [facility] HCl 100 mg 0-15 capsules ity o f capsule 00:00: by mouth 2 [place] 00 (two) Medical times Branch daily. ARIPiprazol 2018-07 Yes [id number] 2mg Take 1 [facility] e (ABILIFY) 0-15 tablet by ity of 2 mg tablet 00:00: mouth [place] [address] [facility] Branch amantadine 2018-07 Yes [id number] 200mg Take 2 [facility] HCl 100 mg 0-15 capsules ity o f capsule 00:00: by mouth 2 [place] 00 (two) Medical times Branch daily. ARIPiprazol 2018-07 Yes [id number] 2mg Take 1 [facility] e (ABILIFY) 0-15 tablet by ity of 2 mg tablet 00:00: mouth [place] [address] [facility] Branch amantadine 2018-07 Yes [id number] 200mg Take 2 [facility] HCl 100 mg 0-15 capsules ity o f capsule 00:00: by mouth 2 [place] 00 (two) Medical times Branch daily. ARIPiprazol 2018-07 Yes [id number] 2mg Take 1 [facility] e (ABILIFY) 0-15 tablet by ity of 2 mg tablet 00:00: mouth [place] [address] [facility] Branch amantadine 2018-07 Yes [id number] 200mg Take 2 [facility] HCl 100 mg 0-15 capsules ity o f capsule 00:00: by mouth 2 [place] 00 (two) Medical times Branch daily. ARIPiprazol 2018-07 Yes [id number] 2mg Take 1 [facility] e (ABILIFY) 0-15 tablet by ity of 2 mg tablet 00:00: mouth [place] 00 daily. [facility] amantadine 2018-07- No [id number] 200mg Take 2 [facility] HCl 100 mg 0-15 01-31 capsules ity of capsule 00:00: 00:00 by mouth 2 [place] 00 :00 (two) Medical times Branch daily. amantadine 2018-07- No [id number] 200mg Take 2 [facility] HCl 100 mg 0-15 -31 capsules ity of capsule 00:00: 00:00 by mouth 2 [place] 00 :00 (two) Medical times Branch daily. amantadine 2018-07- No [id number] 200mg Take 2 [facility] HCl 100 mg 0-15 -31 capsules ity of capsule 00:00: 00:00 by mouth 2 [place] 00 :00 (two) Medical times Branch daily. amantadine 2018-07- No [id number] 200mg Take 2 [facility] HCl 100 mg 0-15 -31 capsules ity of capsule 00:00: 00:00 by mouth 2 [place] 00 :00 (two) Medical times Branch daily. ARIPiprazol 2018-07- No [id number] 2mg Take 1 [facility] e (ABILIFY) 0-15 12-05 tablet by it y of 2 mg tablet 00:00: 00:00 mouth [place] 00 :00 daily. Medical Branch ARIPiprazol 2018-07- No [id number] 2mg Take 1 [facility] e (ABILIFY) 0-15 12-05 tablet by it y of 2 mg tablet 00:00: 00:00 mouth [place] 00 :00 daily. Medical Branch ARIPiprazol 2018-07- No [id number] 2mg Take 1 [facility] e (ABILIFY) 0-15 12-05 tablet by it y of 2 mg tablet 00:00: 00:00 mouth [place] 00 :00 daily. Medical Branch SERTraline 2018-07- No [id number] 25mg Take 1 [facility] 25 mg 0-15 01-14 tablet by ity of tablet 00:00: 00:00 mouth [place] 00 :00 daily. Medical Branch XOPENEX HFA 2018-07 Yes [id number] INHALE 2 [facility] 45 0-11 PUFFS BY ity of mcg/actuati 00:00: MOUTH [place] on inhaler 00 EVERY 6 Medica l HOURS Branch NEEDED BEFORE EXERCISE OR FOR WHEEZING/S HORTNESS OF BREATH. XOPENEX HFA 2018-07 Yes [id number] INHALE 2 [facility] 45 0-11 PUFFS BY ity of mcg/actuati 00:00: MOUTH [place] on inhaler 00 EVERY 6 Medica l HOURS Branch NEEDED BEFORE EXERCISE OR FOR WHEEZING/S HORTNESS OF BREATH. XOPENEX HFA 2018-07 Yes [id number] INHALE 2 [facility] 45 0-11 PUFFS BY ity of mcg/actuati 00:00: MOUTH [place] on inhaler 00 EVERY 6 Medica l HOURS Branch NEEDED BEFORE EXERCISE OR FOR WHEEZING/S HORTNESS OF BREATH. XOPENEX HFA 2018-07 Yes [id number] INHALE 2 [facility] 45 0-11 PUFFS BY ity of mcg/actuati 00:00: MOUTH [place] on inhaler 00 EVERY 6 Medica l HOURS Branch NEEDED BEFORE EXERCISE OR FOR WHEEZING/S HORTNESS OF BREATH. XOPENEX HFA 2018-07 Yes [id number] INHALE 2 [facility] 45 0-11 PUFFS BY ity of mcg/actuati 00:00: MOUTH [place] on inhaler 00 EVERY 6 Medica l HOURS Branch NEEDED BEFORE EXERCISE OR FOR WHEEZING/S HORTNESS OF BREATH. XOPENEX HFA 2018-07 Yes [id number] INHALE 2 [facility] 45 0-11 PUFFS BY ity of mcg/actuati 00:00: MOUTH [place] on inhaler 00 EVERY 6 Medica l HOURS Branch NEEDED BEFORE EXERCISE OR FOR WHEEZING/S HORTNESS OF BREATH. XOPENEX HFA 2018-07 Yes [id number] INHALE 2 [facility] 45 0-11 PUFFS BY ity of mcg/actuati 00:00: MOUTH [place] on inhaler 00 EVERY 6 Medica l HOURS Branch NEEDED BEFORE EXERCISE OR FOR WHEEZING/S HORTNESS OF BREATH. XOPENEX HFA 2018-07 Yes [id number] INHALE 2 [facility] 45 0-11 PUFFS BY ity of mcg/actuati 00:00: MOUTH [place] on inhaler 00 EVERY 6 Medica l HOURS Branch NEEDED BEFORE EXERCISE OR FOR WHEEZING/S HORTNESS OF BREATH. XOPENEX HFA 2018- Yes [id number] INHALE 2 [facility] 45 0-11 PUFFS BY ity of mcg/actuati 00:00: MOUTH [place] on inhaler 00 EVERY 6 Medica l HOURS Branch NEEDED BEFORE EXERCISE OR FOR WHEEZING/S HORTNESS OF BREATH. XOPENEX HFA 2018- Yes [id number] INHALE 2 [facility] 45 0-11 PUFFS BY ity of mcg/actuati 00:00: MOUTH [place] on inhaler 00 EVERY 6 Medica l HOURS Branch NEEDED BEFORE EXERCISE OR FOR WHEEZING/S HORTNESS OF BREATH. XOPENEX HFA 2018-07 Yes [id number] INHALE 2 [facility] 45 0-11 PUFFS BY ity of mcg/actuati 00:00: MOUTH [place] on inhaler 00 EVERY 6 Medica l HOURS Branch NEEDED BEFORE EXERCISE OR FOR WHEEZING/S HORTNESS OF BREATH. XOPENEX HFA 2018- Yes [id number] INHALE 2 [facility] 45 0-11 PUFFS BY ity of mcg/actuati 00:00: MOUTH [place] on inhaler 00 EVERY 6 Medica l HOURS Branch NEEDED BEFORE EXERCISE OR FOR WHEEZING/S HORTNESS OF BREATH. XOPENEX HFA 2018-07 Yes [id number] INHALE 2 [facility] 45 0-11 PUFFS BY ity of mcg/actuati 00:00: MOUTH [place] on inhaler 00 EVERY 6 Medica l HOURS Branch NEEDED BEFORE EXERCISE OR FOR WHEEZING/S HORTNESS OF BREATH. XOPENEX HFA 2018- Yes [id number] INHALE 2 [facility] 45 0-11 PUFFS BY ity of mcg/actuati 00:00: MOUTH [place] on inhaler 00 EVERY 6 Medica l HOURS Branch NEEDED BEFORE EXERCISE OR FOR WHEEZING/S HORTNESS OF BREATH. XOPENEX HFA 2018- Yes [id number] INHALE 2 [facility] 45 0-11 PUFFS BY ity of mcg/actuati 00:00: MOUTH [place] on inhaler 00 EVERY 6 Medica l HOURS Branch NEEDED BEFORE EXERCISE OR FOR WHEEZING/S HORTNESS OF BREATH. XOPENEX HFA 2018- Yes [id number] INHALE 2 [facility] 45 0-11 PUFFS BY ity of mcg/actuati 00:00: MOUTH [place] on inhaler 00 EVERY 6 Medica l HOURS Branch NEEDED BEFORE EXERCISE OR FOR WHEEZING/S HORTNESS OF BREATH. XOPENEX HFA 2018- Yes [id number] INHALE 2 [facility] 45 0-11 PUFFS BY ity of mcg/actuati 00:00: MOUTH [place] on inhaler 00 EVERY 6 Medica l HOURS Branch NEEDED BEFORE EXERCISE OR FOR WHEEZING/S HORTNESS OF BREATH. XOPENEX HFA 2018-07 Yes [id number] INHALE 2 [facility] 45 0-11 PUFFS BY ity of mcg/actuati 00:00: MOUTH [place] on inhaler 00 EVERY 6 Medica l HOURS Branch NEEDED BEFORE EXERCISE OR FOR WHEEZING/S HORTNESS OF BREATH. [facility] Yes [id number] INHALE 2 [facility] 45 0-11 PUFFS BY ity of mcg/actuati 00:00: MOUTH [place] on inhaler 00 EVERY 6 Medica l HOURS Branch NEEDED BEFORE EXERCISE OR FOR WHEEZING/S HORTNESS OF BREATH. [facility] Yes [id number] INHALE 2 [facility] 45 0-11 PUFFS BY ity of mcg/actuati 00:00: MOUTH [place] on inhaler 00 EVERY 6 Medica l HOURS Branch NEEDED BEFORE EXERCISE OR FOR WHEEZING/S HORTNESS OF BREATH. [facility]-07 Yes [id number] INHALE 2 [facility] 45 0-11 PUFFS BY ity of mcg/actuati 00:00: MOUTH [place] on inhaler 00 EVERY 6 Medica l HOURS Branch NEEDED BEFORE EXERCISE OR FOR WHEEZING/S HORTNESS OF BREATH. [facility] 2018-07 Yes [id number] INHALE 2 [facility] 45 0-11 PUFFS BY ity of mcg/actuati 00:00: MOUTH [place] on inhaler 00 EVERY 6 Medica l HOURS Branch NEEDED BEFORE EXERCISE OR FOR WHEEZING/S HORTNESS OF BREATH. [facility] 2018-07 Yes [id number] INHALE 2 [facility] 45 0-11 PUFFS BY ity of mcg/actuati 00:00: MOUTH [place] on inhaler 00 EVERY 6 Medica l HOURS Branch NEEDED BEFORE EXERCISE OR FOR WHEEZING/S HORTNESS OF BREATH. [facility] Yes [id number] INHALE 2 [facility] 45 0-11 PUFFS BY ity of mcg/actuati 00:00: MOUTH [place] on inhaler 00 EVERY 6 Medica l HOURS Branch NEEDED BEFORE EXERCISE OR FOR WHEEZING/S HORTNESS OF BREATH. [facility] 2018-07- No [id number] INHALE 2 [facility] 45 0-11 12-29 PUFFS BY ity of mcg/actuati 00:00: 00:00 MOUTH [place] on inhaler 00 :00 EVERY 6 Medica l HOURS Branch NEEDED BEFORE EXERCISE OR FOR WHEEZING/S HORTNESS OF BREATH. XOPENEX HFA 2018-072- No [id number] INHALE 2 [facility] 45 0-11 12-29 PUFFS BY ity of mcg/actuati 00:00: 00:00 MOUTH [place] on inhaler 00 :00 EVERY 6 Medica l HOURS Branch NEEDED BEFORE EXERCISE OR FOR WHEEZING/S HORTNESS OF BREATH. fluticasone 2018-07 Yes [id number] 2{puff} Inhale 2 [facility] propionate 0-07 Puffs 2 ity of (FLOVENT 00:00: ([facility]) [facility] [place]) 110 00 times Medical mcg/actuati daily. Branch on inhaler fluticasone 2018-07 Yes [id number] 2{puff} Inhale 2 [facility] propionate 0-07 Puffs 2 ity of (FLOVENT 00:00: ([facility]) [facility] [place]) 110 00 times Medical mcg/actuati daily. Branch on inhaler fluticasone 2018-07 Yes [id number] 2{puff} Inhale 2 [facility] propionate 0-07 Puffs 2 ity of (FLOVENT 00:00: ([facility]) [facility] [place]) 110 00 times Medical mcg/actuati daily. Branch on inhaler fluticasone 2018-07 Yes [id number] 2{puff} Inhale 2 [facility] propionate 0-07 Puffs 2 ity of (FLOVENT 00:00: ([facility]) 110 00 times Medical mcg/actuati daily. Branch on inhaler fluticasone 2018-07 Yes [id number] 2{puff} Inhale 2 [facility] propionate 0-07 Puffs 2 ity of (FLOVENT 00:00: ([facility]) 110 00 times Medical mcg/actuati daily. Branch on inhaler fluticasone 2018-07 Yes [id number] 2{puff} Inhale 2 [facility] propionate 0-07 Puffs 2 ity of (FLOVENT 00:00: ([facility]) [facility] [place]) 110 00 times Medical mcg/actuati daily. Branch on inhaler fluticasone 2018-07 Yes [id number] 2{puff} Inhale 2 [facility] propionate 0-07 Puffs 2 ity of (FLOVENT 00:00: ([facility]) [facility] [place]) 110 00 times Medical mcg/actuati daily. Branch on inhaler fluticasone 2018-07 Yes [id number] 2{puff} Inhale 2 [facility] propionate 0-07 Puffs 2 ity of (FLOVENT 00:00: ([facility]) [place] [facility]) 110 00 times Medical mcg/actuati daily. Branch on inhaler fluticasone 2018-07 Yes [id number] 2{puff} Inhale 2 [facility] propionate 0-07 Puffs 2 ity of (FLOVENT 00:00: ([facility]) [place] [facility]) 110 00 times Medical mcg/actuati daily. Branch on inhaler fluticasone 2018-07 Yes [id number] 2{puff} Inhale 2 [facility] propionate 0-07 Puffs 2 ity of (FLOVENT 00:00: (two) [place] [facility]) 110 00 times Medical mcg/actuati daily. Branch on inhaler fluticasone 2018-07 Yes [id number] 2{puff} Inhale 2 [facility] propionate 0-07 Puffs 2 [facility] of ([facility] 00:00: [facility] Medical [facility]/actuati daily. Branch on inhaler fluticasone 2018-07 Yes [id number] 2{puff} Inhale 2 [facility] propionate 0-07 Puffs 2 ity of (FLOVENT 00:00: ([facility]) [place] [facility]) 110 00 times Medical mcg/actuati daily. Branch on inhaler fluticasone 2018-07 Yes [id number] 2{puff} Inhale 2 [facility] propionate 0-07 Puffs 2 ity of (FLOVENT 00:00: ([facility]) [place] [facility]) 110 00 times Medical mcg/actuati daily. Branch on inhaler fluticasone 2018-07 Yes [id number] 2{puff} Inhale 2 [facility] propionate 0-07 Puffs 2 ity of (FLOVENT 00:00: (two) [place] [facility]) 110 00 times Medical mcg/actuati daily. Branch on inhaler fluticasone 2018-07 Yes [id number] 2{puff} Inhale 2 [facility] propionate 0-07 Puffs 2 ity of (FLOVENT 00:00: ([facility]) [place] [facility]) 110 00 times Medical mcg/actuati daily. Branch on inhaler fluticasone 2018-07 Yes [id number] 2{puff} Inhale 2 [facility] propionate 0-07 Puffs 2 ity of (FLOVENT 00:00: ([facility]) [place] [facility]) 110 00 times Medical mcg/actuati daily. Branch on inhaler fluticasone 2018-07 Yes [id number] 2{puff} Inhale 2 [facility] propionate 0-07 Puffs 2 ity of (FLOVENT 00:00: (two) [place] [facility]) 110 00 times Medical mcg/actuati daily. Branch on inhaler fluticasone 2018-07- No [id number] 2{puff} Inhale 2 [facility] propionate 0-07 12-05 Puffs 2 ity o f (FLOVENT 00:00: 00:00 (two) [place] [facility]) 110 00 :00 times Medical mcg/actuati daily. Branch on inhaler fluticasone 2018-07- No [id number] 2{puff} Inhale 2 [facility] propionate 0-07 12-05 Puffs 2 ity o f (FLOVENT 00:00: 00:00 (two) [place] [facility]) 110 00 :00 times Medical mcg/actuati daily. Branch on inhaler fluticasone 2018-07- No [id number] 2{puff} Inhale 2 [facility] propionate 0-07 12-05 Puffs 2 ity o f (FLOVENT 00:00: 00:00 ([facility]) [facility] [place]) 110 00 :00 times Medical mcg/actuati daily. Branch on inhaler lisdexamfet 2018- Yes [id number] 40mg Take 1 [facility] amine 40 mg 9-09 capsule by it y of capsule 00:00: mouth [place] 00 every Medical morning. Branch lisdexamfet 2018-0 Yes [id number] 40mg Take 1 [facility] amine 40 mg 9-09 capsule by it y of capsule 00:00: mouth [place] 00 every Medical morning. Branch lisdexamfet 2018-0 Yes [id number] 40mg Take 1 [facility] amine 40 mg 9-09 capsule by it y of capsule 00:00: mouth [place] 00 every Medical morning. Branch lisdexamfet 2018-0 Yes [id number] 40mg Take 1 [facility] amine 40 mg 9-09 capsule by it y of capsule 00:00: mouth [place] 00 every Medical morning. Branch lisdexamfet 2018-0 Yes [id number] 40mg Take 1 [facility] amine 40 mg 9-09 capsule by it y of capsule 00:00: mouth [place] 00 every Medical morning. Branch lisdexamfet 2019-0 Yes [id number] 40mg Take 1 [facility] amine 40 mg 9-09 capsule by it y of capsule 00:00: mouth [place] 00 every Medical morning. Branch lisdexamfet 2019-0 Yes [id number] 40mg Take 1 [facility] amine 40 mg 9-09 capsule by it y of capsule 00:00: mouth [place] 00 every Medical morning. Branch lisdexamfet 2019-0 Yes [id number] 40mg Take 1 [facility] amine 40 mg 9-09 capsule by it y of capsule 00:00: mouth [place] 00 every Medical morning. Branch lisdexamfet 2019-0 Yes [id number] 40mg Take 1 [facility] amine 40 mg 9-09 capsule by it y of capsule 00:00: mouth [place] 00 every Medical morning. Branch lisdexamfet 2019-0 Yes [id number] 40mg Take 1 [facility] amine 40 mg 9-09 capsule by it y of capsule 00:00: mouth [place] 00 every Medical morning. Branch lisdexamfet 2019-0 Yes [id number] 40mg Take 1 [facility] amine 40 mg 9-09 capsule by it y of capsule 00:00: mouth [place] 00 every Medical morning. Branch lisdexamfet 2019-0 Yes [id number] 40mg Take 1 [facility] amine 40 mg 9-09 capsule by it y of capsule 00:00: mouth [place] 00 every Medical morning. Branch lisdexamfet 2019-0 Yes [id number] 40mg Take 1 [facility] amine 40 mg 9-09 capsule by it y of capsule 00:00: mouth [place] 00 every Medical morning. Branch lisdexamfet 2019-0 Yes [id number] 40mg Take 1 [facility] amine 40 mg 9-09 capsule by it y of capsule 00:00: mouth [place] 00 every Medical morning. Branch lisdexamfet 2019-0 Yes [id number] 40mg Take 1 [facility] amine 40 mg 9-09 capsule by it y of capsule 00:00: mouth [place] 00 every Medical morning. Branch lisdexamfet 2019-0 Yes [id number] 40mg Take 1 [facility] amine 40 mg 9-09 capsule by it y of capsule 00:00: mouth [place] 00 every Medical morning. Branch lisdexamfet 2019-0 Yes [id number] 40mg Take 1 [facility] amine 40 mg 9-09 capsule by it y of capsule 00:00: mouth [place] 00 every Medical morning. Branch lisdexamfet 2019-0 Yes [id number] 40mg Take 1 [facility] amine 40 mg 9-09 capsule by it y of capsule 00:00: mouth [place] 00 every Medical morning. Branch lisdexamfet 2019-0 Yes [id number] 40mg Take 1 [facility] amine 40 mg 9-09 capsule by it y of capsule 00:00: mouth [place] 00 every Medical morning. Branch lisdexamfet 2019-0 Yes [id number] 40mg Take 1 [facility] amine 40 mg 9-09 capsule by it y of capsule 00:00: mouth [place] 00 every Medical morning. Branch lisdexamfet 2019-0 Yes [id number] 40mg Take 1 [facility] amine 40 mg 9-09 capsule by it y of capsule 00:00: mouth [place] 00 every Medical morning. Branch lisdexamfet 2019-0 Yes [id number] 40mg Take 1 [facility] amine 40 mg 9-09 capsule by it y of capsule 00:00: mouth [place] 00 every Medical morning. Branch lisdexamfet 2019-0 Yes [id number] 40mg Take 1 [facility] amine 40 mg 9-09 capsule by it y of capsule 00:00: mouth [place] 00 every Medical morning. Branch lisdexamfet 2018-0 Yes [id number] 40mg Take 1 [facility] amine 40 mg 9-09 capsule by it y of capsule 00:00: mouth [place] 00 every Medical morning. Branch lisdexamfet 2018-0 Yes [id number] 40mg Take 1 [facility] amine 40 mg 9-09 capsule by it y of capsule 00:00: mouth [place] 00 every Medical morning. Branch lisdexamfet 2019-0 Yes [id number] 40mg Take 1 [facility] amine 40 mg 9-09 capsule by it y of capsule 00:00: mouth [place] 00 every Medical morning. Branch lisdexamfet 2019-0 Yes [id number] 40mg Take 1 [facility] amine 40 mg 9-09 capsule by it y of capsule 00:00: mouth [place] 00 every Medical morning. Branch lisdexamfet 2019-0 Yes [id number] 40mg Take 1 [facility] amine 40 mg 9-09 capsule by it y of capsule 00:00: mouth [place] 00 every Medical morning. Branch lisdexamfet 2019-0 Yes [id number] 40mg Take 1 [facility] amine 40 mg 9-09 capsule by it y of capsule 00:00: mouth [place] 00 every Medical morning. Branch lisdexamfet 2019-0 Yes [id number] 40mg Take 1 [facility] amine 40 mg 9-09 capsule by it y of capsule 00:00: mouth [place] 00 every Medical morning. Branch lisdexamfet 2019-0 Yes [id number] 40mg Take 1 [facility] amine 40 mg 9-09 capsule by it y of capsule 00:00: mouth [place] 00 every Medical morning. Branch lisdexamfet 2019-0 Yes [id number] 40mg Take 1 [facility] amine 40 mg 9-09 capsule by it y of capsule 00:00: mouth [place] 00 every Medical morning. Branch lisdexamfet 2019-0 Yes [id number] 40mg Take 1 [facility] amine 40 mg 9-09 capsule by it y of capsule 00:00: mouth [place] 00 every Medical morning. Branch lisdexamfet 2019-0 Yes [id number] 40mg Take 1 [facility] amine 40 mg 9-09 capsule by it y of capsule 00:00: mouth [place] 00 every Medical morning. Branch lisdexamfet 2019-0 Yes [id number] 40mg Take 1 [facility] amine 40 mg 9-09 capsule by it y of capsule 00:00: mouth [place] 00 every Medical morning. Branch lisdexamfet 2019-0 Yes [id number] 40mg Take 1 [facility] amine 40 mg 9-09 capsule by it y of capsule 00:00: mouth [place] 00 every Medical morning. Branch lisdexamfet 2019-0 Yes [id number] 40mg Take 1 [facility] amine 40 mg 9-09 capsule by it y of capsule 00:00: mouth [place] 00 every Medical morning. Branch lisdexamfet 2019-0 Yes [id number] 40mg Take 1 [facility] amine 40 mg 9-09 capsule by it y of capsule 00:00: mouth [place] 00 every Medical morning. Branch lisdexamfet 2019-0 Yes [id number] 40mg Take 1 [facility] amine 40 mg 9-09 capsule by it y of capsule 00:00: mouth [place] 00 every Medical morning. Branch lisdexamfet 2019-0 Yes [id number] 40mg Take 1 [facility] amine 40 mg 9-09 capsule by it y of capsule 00:00: mouth [place] 00 every Medical morning. Branch lisdexamfet 2019-0 Yes [id number] 40mg Take 1 [facility] amine 40 mg 9-09 capsule by it y of capsule 00:00: mouth [place] 00 every Medical morning. Branch lisdexamfet 2019-0 Yes [id number] 40mg Take 1 [facility] amine 40 mg 9-09 capsule by it y of capsule 00:00: mouth [place] 00 every Medical morning. Branch lisdexamfet 2019-0 Yes [id number] 40mg Take 1 [facility] amine 40 mg 9-09 capsule by it y of capsule 00:00: mouth [place] 00 every Medical morning. Branch lisdexamfet 2019-0 Yes [id number] 40mg Take 1 [facility] amine 40 mg 9-09 capsule by it y of capsule 00:00: mouth [place] 00 every Medical morning. Branch lisdexamfet 2019-0 Yes [id number] 40mg Take 1 [facility] amine 40 mg 9-09 capsule by it y of capsule 00:00: mouth [place] 00 every Medical morning. Branch lisdexamfet 2019-0 Yes [id number] 40mg Take 1 [facility] amine 40 mg 9-09 capsule by it y of capsule 00:00: mouth [place] 00 every Medical morning. Branch lisdexamfet 2019-0 Yes [id number] 40mg Take 1 [facility] amine 40 mg 9-09 capsule by it y of capsule 00:00: mouth [place] 00 every Medical morning. Branch lisdexamfet 2019-0 Yes [id number] 40mg Take 1 [facility] amine 40 mg 9-09 capsule by it y of capsule 00:00: mouth [place] 00 every Medical morning. Branch lisdexamfet 2019-0 Yes [id number] 40mg Take 1 [facility] amine 40 mg 9-09 capsule by it y of capsule 00:00: mouth [place] 00 every Medical morning. Branch lisdexamfet 2019-0 Yes [id number] 40mg Take 1 [facility] amine 40 mg 9-09 capsule by it y of capsule 00:00: mouth [place] 00 every Medical morning. Branch lisdexamfet 2019-0 Yes [id number] 40mg Take 1 [facility] amine 40 mg 9-09 capsule by it y of capsule 00:00: mouth [place] 00 every Medical morning. Branch lisdexamfet 2019-0 Yes [id number] 40mg Take 1 [facility] amine 40 mg 9-09 capsule by it y of capsule 00:00: mouth [place] 00 every Medical morning. Branch lisdexamfet 2019-0 Yes [id number] 40mg Take 1 [facility] amine 40 mg 9-09 capsule by it y of capsule 00:00: mouth [place] 00 every Medical morning. Branch lisdexamfet 2019-0 Yes [id number] 40mg Take 1 [facility] amine 40 mg 9-09 capsule by it y of capsule 00:00: mouth [place] 00 every Medical morning. Branch lisdexamfet 2019-0 Yes [id number] 40mg Take 1 [facility] amine 40 mg 9-09 capsule by it y of capsule 00:00: mouth [place] 00 every Medical morning. Branch lisdexamfet 2019-0 Yes [id number] 40mg Take 1 [facility] amine 40 mg 9-09 capsule by it y of capsule 00:00: mouth [place] 00 every Medical morning. Branch lisdexamfet 2019-0 Yes [id number] 40mg Take 1 [facility] amine 40 mg 9-09 capsule by it y of capsule 00:00: mouth [place] 00 every Medical morning. Branch lisdexamfet 2019-0 Yes [id number] 40mg Take 1 [facility] amine 40 mg 9-09 capsule by it y of capsule 00:00: mouth [place] 00 every Medical morning. Branch lisdexamfet 2019-0 Yes [id number] 40mg Take 1 [facility] amine 40 mg 9-09 capsule by it y of capsule 00:00: mouth [place] 00 every Medical morning. Branch lisdexamfet 2019-0 Yes [id number] 40mg Take 1 [facility] amine 40 mg 9-09 capsule by it y of capsule 00:00: mouth [place] 00 every Medical morning. Branch lisdexamfet 2019-0 Yes [id number] 40mg Take 1 [facility] amine 40 mg 9-09 capsule by it y of capsule 00:00: mouth [place] 00 every Medical morning. Branch lisdexamfet 2019-0 Yes [id number] 40mg Take 1 [facility] amine 40 mg 9-09 capsule by it y of capsule 00:00: mouth [place] 00 every Medical morning. Branch lisdexamfet 2019-0 Yes [id number] 40mg Take 1 [facility] amine 40 mg 9-09 capsule by it y of capsule 00:00: mouth [place] 00 every Medical morning. Branch lisdexamfet 2019-0 Yes [id number] 40mg Take 1 [facility] amine 40 mg 9-09 capsule by it y of capsule 00:00: mouth [place] 00 every Medical morning. Branch lisdexamfet 2019-0 Yes [id number] 40mg Take 1 [facility] amine 40 mg 9-09 capsule by it y of capsule 00:00: mouth [place] 00 every Medical morning. Branch lisdexamfet 2019-0 Yes [id number] 40mg Take 1 [facility] amine 40 mg 9-09 capsule by it y of capsule 00:00: mouth [place] 00 every Medical morning. Branch lisdexamfet 2019-0 Yes [id number] 40mg Take 1 [facility] amine 40 mg 9-09 capsule by it y of capsule 00:00: mouth [place] 00 every Medical morning. Branch lisdexamfet 2019-0 Yes [id number] 40mg Take 1 [facility] amine 40 mg 9-09 capsule by it y of capsule 00:00: mouth [place] 00 every Medical morning. Branch lisdexamfet 2019-0 Yes [id number] 40mg Take 1 [facility] amine 40 mg 9-09 capsule by it y of capsule 00:00: mouth [place] 00 every Medical morning. Branch lisdexamfet 2019-0 Yes [id number] 40mg Take 1 [facility] amine 40 mg 9-09 capsule by it y of capsule 00:00: mouth [place] 00 every Medical morning. Branch lisdexamfet 2019-0 Yes [id number] 40mg Take 1 [facility] amine 40 mg 9-09 capsule by it y of capsule 00:00: mouth [place] 00 every Medical morning. Branch lisdexamfet 2019-0 Yes [id number] 40mg Take 1 [facility] amine 40 mg 9-09 capsule by it y of capsule 00:00: mouth [place] 00 every Medical morning. Branch lisdexamfet 2019-0 Yes [id number] 40mg Take 1 [facility] amine 40 mg 9-09 capsule by it y of capsule 00:00: mouth [place] 00 every Medical morning. Branch lisdexamfet 2019-0 Yes [id number] 40mg Take 1 [facility] amine 40 mg 9-09 capsule by it y of capsule 00:00: mouth [place] 00 every Medical morning. Branch lisdexamfet 2019-0 Yes [id number] 40mg Take 1 [facility] amine 40 mg 9-09 capsule by it y of capsule 00:00: mouth [place] 00 every Medical morning. Branch lisdexamfet 2019-0 Yes [id number] 40mg Take 1 [facility] amine 40 mg 9-09 capsule by it y of capsule 00:00: mouth [place] 00 every Medical morning. Branch lisdexamfet 2019-0 Yes [id number] 40mg Take 1 [facility] amine 40 mg 9-09 capsule by it y of capsule 00:00: mouth [place] 00 every Medical morning. Branch lisdexamfet 2019-0 Yes [id number] 40mg Take 1 [facility] amine 40 mg 9-09 capsule by it y of capsule 00:00: mouth [place] 00 every Medical morning. Branch lisdexamfet 2019-0 Yes [id number] 40mg Take 1 [facility] amine 40 mg 9-09 capsule by it y of capsule 00:00: mouth [place] 00 every Medical morning. Branch lisdexamfet 2019-0 Yes [id number] 40mg Take 1 [facility] amine 40 mg 9-09 capsule by it y of capsule 00:00: mouth [place] 00 every Medical morning. Branch lisdexamfet 2019-0 Yes [id number] 40mg Take 1 [facility] amine 40 mg 9-09 capsule by it y of capsule 00:00: mouth [place] 00 every Medical morning. Branch lisdexamfet 2019-0 Yes [id number] 40mg Take 1 [facility] amine 40 mg 9-09 capsule by it y of capsule 00:00: mouth [place] 00 every Medical morning. Branch lisdexamfet 2019-0 Yes [id number] 40mg Take 1 [facility] amine 40 mg 9-09 capsule by it y of capsule 00:00: mouth [place] 00 every Medical morning. Branch lisdexamfet 2019-0 Yes [id number] 40mg Take 1 [facility] amine 40 mg 9-09 capsule by it y of capsule 00:00: mouth [place] 00 every Medical morning. Branch lisdexamfet 2018-0 Yes [id number] 40mg Take 1 [facility] amine 40 mg 9-09 capsule by it y of capsule 00:00: mouth [place] 00 every Medical morning. Branch lisdexamfet 2019-0 Yes [id number] 40mg Take 1 [facility] amine 40 mg 9-09 capsule by it y of capsule 00:00: mouth [place] 00 every Medical morning. Branch lisdexamfet 2019-0 Yes [id number] 40mg Take 1 [facility] amine 40 mg 9-09 capsule by it y of capsule 00:00: mouth [place] 00 every Medical morning. Branch lisdexamfet 2019-0 Yes [id number] 40mg Take 1 [facility] amine 40 mg 9-09 capsule by it y of capsule 00:00: mouth [place] 00 every Medical morning. Branch lisdexamfet 2019-0 Yes [id number] 40mg Take 1 [facility] amine 40 mg 9-09 capsule by it y of capsule 00:00: mouth [place] 00 every Medical morning. Branch lisdexamfet 2019-0 Yes [id number] 40mg Take 1 [facility] amine 40 mg 9-09 capsule by it y of capsule 00:00: mouth [place] 00 every Medical morning. Branch lisdexamfet 2019-0 Yes [id number] 40mg Take 1 [facility] amine 40 mg 9-09 capsule by it y of capsule 00:00: mouth [place] 00 every Medical morning. Branch lisdexamfet 2019-0 Yes [id number] 40mg Take 1 [facility] amine 40 mg 9-09 capsule by it y of capsule 00:00: mouth [place] 00 every Medical morning. Branch lisdexamfet 2019-0 Yes [id number] 40mg Take 1 [facility] amine 40 mg 9-09 capsule by it y of capsule 00:00: mouth [place] 00 every Medical morning. Branch lisdexamfet 2019-0 Yes [id number] 40mg Take 1 [facility] amine 40 mg 9-09 capsule by it y of capsule 00:00: mouth [place] 00 every Medical morning. Branch lisdexamfet 2019-0 Yes [id number] 40mg Take 1 [facility] amine 40 mg 9-09 capsule by it y of capsule 00:00: mouth [place] 00 every Medical morning. Branch lisdexamfet 2019-0 Yes [id number] 40mg Take 1 [facility] amine 40 mg 9-09 capsule by it y of capsule 00:00: mouth [place] 00 every Medical morning. Branch lisdexamfet 2019-0 Yes [id number] 40mg Take 1 [facility] amine 40 mg 9-09 capsule by it y of capsule 00:00: mouth [place] 00 every Medical morning. Branch lisdexamfet 2019-0 Yes [id number] 40mg Take 1 [facility] amine 40 mg 9-09 capsule by it y of capsule 00:00: mouth [place] 00 every Medical morning. Branch lisdexamfet 2019-0 Yes [id number] 40mg Take 1 [facility] amine 40 mg 9-09 capsule by it y of capsule 00:00: mouth [place] 00 every Medical morning. Branch lisdexamfet 2019-0 Yes [id number] 40mg Take 1 [facility] amine 40 mg 9-09 capsule by it y of capsule 00:00: mouth [place] 00 every Medical morning. Branch lisdexamfet 2019-0 Yes [id number] 40mg Take 1 [facility] amine 40 mg 9-09 capsule by it y of capsule 00:00: mouth [place] 00 every Medical morning. Branch lisdexamfet 2019-0 Yes [id number] 40mg Take 1 [facility] amine 40 mg 9-09 capsule by it y of capsule 00:00: mouth [place] 00 every Medical morning. Branch lisdexamfet 2019-0 Yes [id number] 40mg Take 1 [facility] amine 40 mg 9-09 capsule by it y of capsule 00:00: mouth [place] 00 every Medical morning. Branch lisdexamfet 2019-0 Yes [id number] 40mg Take 1 [facility] amine 40 mg 9-09 capsule by it y of capsule 00:00: mouth [place] 00 every Medical morning. Branch lisdexamfet 2019-0 Yes [id number] 40mg Take 1 [facility] amine 40 mg 9-09 capsule by it y of capsule 00:00: mouth [place] 00 every Medical morning. Branch lisdexamfet 2019-0 Yes [id number] 40mg Take 1 [facility] amine 40 mg 9-09 capsule by it y of capsule 00:00: mouth [place] 00 every Medical morning. Branch lisdexamfet 2019-0 Yes [id number] 40mg Take 1 [facility] amine 40 mg 9-09 capsule by it y of capsule 00:00: mouth [place] 00 every Medical morning. Branch lisdexamfet 2019-0 Yes [id number] 40mg Take 1 [facility] amine 40 mg 9-09 capsule by it y of capsule 00:00: mouth [place] 00 every Medical morning. Branch lisdexamfet 2019-0 Yes [id number] 40mg Take 1 [facility] amine 40 mg 9-09 capsule by it y of capsule 00:00: mouth [place] 00 every Medical morning. Branch lisdexamfet 2019-0 Yes [id number] 40mg Take 1 [facility] amine 40 mg 9-09 capsule by it y of capsule 00:00: mouth [place] 00 every Medical morning. Branch lisdexamfet 2019-0 Yes [id number] 40mg Take 1 [facility] amine 40 mg 9-09 capsule by it y of capsule 00:00: mouth [place] 00 every Medical morning. Branch lisdexamfet 2019-0 Yes [id number] 40mg Take 1 [facility] amine 40 mg 9-09 capsule by it y of capsule 00:00: mouth [place] 00 every Medical morning. Branch lisdexamfet 2019-0 Yes [id number] 40mg Take 1 [facility] amine 40 mg 9-09 capsule by it y of capsule 00:00: mouth [place] 00 every Medical morning. Branch lisdexamfet 2019-0 Yes [id number] 40mg Take 1 [facility] amine 40 mg 9-09 capsule by it y of capsule 00:00: mouth [place] 00 every Medical morning. Branch lisdexamfet 2019-0 Yes [id number] 40mg Take 1 [facility] amine 40 mg 9-09 capsule by it y of capsule 00:00: mouth [place] 00 every Medical morning. Branch lisdexamfet 2019-0 Yes [id number] 40mg Take 1 [facility] amine 40 mg 9-09 capsule by it y of capsule 00:00: mouth [place] 00 every Medical morning. Branch lisdexamfet 2019-0 Yes [id number] 40mg Take 1 [facility] amine 40 mg 9-09 capsule by it y of capsule 00:00: mouth [place] 00 every Medical morning. Branch lisdexamfet 2019-0 Yes [id number] 40mg Take 1 [facility] amine 40 mg 9-09 capsule by it y of capsule 00:00: mouth [place] 00 every Medical morning. Branch lisdexamfet 2019-0 Yes [id number] 40mg Take 1 [facility] amine 40 mg 9-09 capsule by it y of capsule 00:00: mouth [place] 00 every Medical morning. Branch lisdexamfet 2019-0 Yes [id number] 40mg Take 1 [facility] amine 40 mg 9-09 capsule by it y of capsule 00:00: mouth [place] 00 every Medical morning. Branch lisdexamfet 2019-0 Yes [id number] 40mg Take 1 [facility] amine 40 mg 9-09 capsule by it y of capsule 00:00: mouth [place] 00 every Medical morning. Branch lisdexamfet 2019-0 Yes [id number] 40mg Take 1 [facility] amine 40 mg 9-09 capsule by it y of capsule 00:00: mouth [place] 00 every Medical morning. Branch lisdexamfet 2019-0 Yes [id number] 40mg Take 1 [facility] amine 40 mg 9-09 capsule by it y of capsule 00:00: mouth [place] 00 every Medical morning. Branch lisdexamfet 2019-0 Yes [id number] 40mg Take 1 [facility] amine 40 mg 9-09 capsule by it y of capsule 00:00: mouth [place] 00 every Medical morning. Branch lisdexamfet 2019-0 Yes [id number] 40mg Take 1 [facility] amine 40 mg 9-09 capsule by it y of capsule 00:00: mouth [place] 00 every Medical morning. Branch lisdexamfet 2019-0 Yes [id number] 40mg Take 1 [facility] amine 40 mg 9-09 capsule by it y of capsule 00:00: mouth [place] 00 every Medical morning. Branch lisdexamfet 2019-0 Yes [id number] 40mg Take 1 [facility] amine 40 mg 9-09 capsule by it y of capsule 00:00: mouth [place] 00 every Medical morning. Branch lisdexamfet 2019-0 Yes [id number] 40mg Take 1 [facility] amine 40 mg 9-09 capsule by it y of capsule 00:00: mouth [place] 00 every Medical morning. Branch lisdexamfet 2019-0 Yes [id number] 40mg Take 1 [facility] amine 40 mg 9-09 capsule by it y of capsule 00:00: mouth [place] 00 every Medical morning. Branch lisdexamfet 2019-0 Yes [id number] 40mg Take 1 [facility] amine 40 mg 9-09 capsule by it y of capsule 00:00: mouth [place] 00 every Medical morning. Branch lisdexamfet 2019-0 Yes [id number] 40mg Take 1 [facility] amine 40 mg 9-09 capsule by it y of capsule 00:00: mouth [place] 00 every Medical morning. Branch lisdexamfet 2019-0 Yes [id number] 40mg Take 1 [facility] amine 40 mg 9-09 capsule by it y of capsule 00:00: mouth [place] 00 every Medical morning. Branch lisdexamfet 2019-0 Yes [id number] 40mg Take 1 [facility] amine 40 mg 9-09 capsule by it y of capsule 00:00: mouth [place] 00 every Medical morning. Branch lisdexamfet 2019-0 Yes [id number] 40mg Take 1 [facility] amine 40 mg 9-09 capsule by it y of capsule 00:00: mouth [place] 00 every Medical morning. Branch lisdexamfet 2019-0 Yes [id number] 40mg Take 1 [facility] amine 40 mg 9-09 capsule by it y of capsule 00:00: mouth [place] 00 every Medical morning. Branch lisdexamfet 2019-0 Yes [id number] 40mg Take 1 [facility] amine 40 mg 9-09 capsule by it y of capsule 00:00: mouth [place] 00 every Medical morning. Branch lisdexamfet 2019-0 Yes [id number] 40mg Take 1 [facility] amine 40 mg 9-09 capsule by it y of capsule 00:00: mouth [place] 00 every Medical morning. Branch lisdexamfet 2019-0 Yes [id number] 40mg Take 1 [facility] amine 40 mg 9-09 capsule by it y of capsule 00:00: mouth [place] 00 every Medical morning. Branch lisdexamfet 2019-0 Yes [id number] 40mg Take 1 [facility] amine 40 mg 9-09 capsule by it y of capsule 00:00: mouth [place] 00 every Medical morning. Branch lisdexamfet 2019-0 Yes [id number] 40mg Take 1 [facility] amine 40 mg 9-09 capsule by it y of capsule 00:00: mouth [place] 00 every Medical morning. Branch lisdexamfet 2019-0 Yes [id number] 40mg Take 1 [facility] amine 40 mg 9-09 capsule by it y of capsule 00:00: mouth [place] 00 every Medical morning. Branch lisdexamfet 2019-0 Yes [id number] 40mg Take 1 [facility] amine 40 mg 9-09 capsule by it y of capsule 00:00: mouth [place] 00 every Medical morning. Branch lisdexamfet 2019-0 Yes [id number] 40mg Take 1 [facility] amine 40 mg 9-09 capsule by it y of capsule 00:00: mouth [place] 00 every Medical morning. Branch lisdexamfet 2019-0 Yes [id number] 40mg Take 1 [facility] amine 40 mg 9-09 capsule by it y of capsule 00:00: mouth [place] 00 every Medical morning. Branch lisdexamfet 2019-0 Yes [id number] 40mg Take 1 [facility] amine 40 mg 9-09 capsule by it y of capsule 00:00: mouth [place] 00 every Medical morning. Branch lisdexamfet 2018-0 Yes [id number] 40mg Take 1 [facility] amine 40 mg 9-09 capsule by it y of capsule 00:00: mouth [place] 00 every Medical morning. Branch lisdexamfet 2019-0 Yes [id number] 40mg Take 1 [facility] amine 40 mg 9-09 capsule by it y of capsule 00:00: mouth [place] 00 every Medical morning. Branch lisdexamfet 2019-0 Yes [id number] 40mg Take 1 [facility] amine 40 mg 9-09 capsule by it y of capsule 00:00: mouth [place] 00 every Medical morning. Branch lisdexamfet 2019-0 Yes [id number] 40mg Take 1 [facility] amine 40 mg 9-09 capsule by it y of capsule 00:00: mouth [place] 00 every Medical morning. Branch lisdexamfet 2019-0 Yes [id number] 40mg Take 1 [facility] amine 40 mg 9-09 capsule by it y of capsule 00:00: mouth [place] 00 every Medical morning. Branch lisdexamfet 2019-0 Yes [id number] 40mg Take 1 [facility] amine 40 mg 9-09 capsule by it y of capsule 00:00: mouth [place] 00 every Medical morning. Branch lisdexamfet 2019-0 Yes [id number] 40mg Take 1 [facility] amine 40 mg 9-09 capsule by it y of capsule 00:00: mouth [place] 00 every Medical morning. Branch lisdexamfet 2019-0 Yes [id number] 40mg Take 1 [facility] amine 40 mg 9-09 capsule by it y of capsule 00:00: mouth [place] 00 every Medical morning. Branch lisdexamfet 2019-0 Yes [id number] 40mg Take 1 [facility] amine 40 mg 9-09 capsule by it y of capsule 00:00: mouth [place] 00 every Medical morning. Branch lisdexamfet 2019-0 Yes [id number] 40mg Take 1 [facility] amine 40 mg 9-09 capsule by it y of capsule 00:00: mouth [place] 00 every Medical morning. Branch lisdexamfet 2019-0 Yes [id number] 40mg Take 1 [facility] amine 40 mg 9-09 capsule by it y of capsule 00:00: mouth [place] 00 every Medical morning. Branch lisdexamfet 2019-0 Yes [id number] 40mg Take 1 [facility] amine 40 mg 9-09 capsule by it y of capsule 00:00: mouth [place] 00 every Medical morning. Branch lisdexamfet 2018-0 Yes [id number] 40mg Take 1 [facility] amine 40 mg 9-09 capsule by it y of capsule 00:00: mouth [place] 00 every Medical morning. Branch lisdexamfet 2018-0 Yes [id number] 40mg Take 1 [facility] amine 40 mg 9-09 capsule by it y of capsule 00:00: mouth [place] 00 every Medical morning. Branch lisdexamfet 2019-0 Yes [id number] 40mg Take 1 [facility] amine 40 mg 9-09 capsule by it y of capsule 00:00: mouth [place] 00 every Medical morning. Branch lisdexamfet 2019-0 Yes [id number] 40mg Take 1 [facility] amine 40 mg 9-09 capsule by it y of capsule 00:00: mouth [place] 00 every Medical morning. Branch lisdexamfet 2019-0 Yes [id number] 40mg Take 1 [facility] amine 40 mg 9-09 capsule by it y of capsule 00:00: mouth [place] 00 every Medical morning. Branch lisdexamfet 2019-0 Yes [id number] 40mg Take 1 [facility] amine 40 mg 9-09 capsule by it y of capsule 00:00: mouth [place] 00 every Medical morning. Branch lisdexamfet 2019-0 Yes [id number] 40mg Take 1 [facility] amine 40 mg 9-09 capsule by it y of capsule 00:00: mouth [place] 00 every Medical morning. Branch lisdexamfet 2019-0 Yes [id number] 40mg Take 1 [facility] amine 40 mg 9-09 capsule by it y of capsule 00:00: mouth [place] 00 every Medical morning. Branch lisdexamfet 2019-0 Yes [id number] 40mg Take 1 [facility] amine 40 mg 9-09 capsule by it y of capsule 00:00: mouth [place] 00 every Medical morning. Branch lisdexamfet 2019-0 Yes [id number] 40mg Take 1 [facility] amine 40 mg 9-09 capsule by it y of capsule 00:00: mouth [place] 00 every Medical morning. Branch lisdexamfet 2019-0 Yes [id number] 40mg Take 1 [facility] amine 40 mg 9-09 capsule by it y of capsule 00:00: mouth [place] 00 every Medical morning. Branch lisdexamfet 2019-0 Yes [id number] 40mg Take 1 [facility] amine 40 mg 9-09 capsule by it y of capsule 00:00: mouth [place] 00 every Medical morning. Branch lisdexamfet 2019-0 Yes [id number] 40mg Take 1 [facility] amine 40 mg 9-09 capsule by it y of capsule 00:00: mouth [place] 00 every Medical morning. Branch lisdexamfet 2019-0 Yes [id number] 40mg Take 1 [facility] amine 40 mg 9-09 capsule by it y of capsule 00:00: mouth [place] 00 every Medical morning. Branch lisdexamfet 2019-0 Yes [id number] 40mg Take 1 [facility] amine 40 mg 9-09 capsule by it y of capsule 00:00: mouth [place] 00 every Medical morning. Branch lisdexamfet 2019-0 Yes [id number] 40mg Take 1 [facility] amine 40 mg 9-09 capsule by it y of capsule 00:00: mouth [place] 00 every Medical morning. Branch lisdexamfet 2019-0 Yes [id number] 40mg Take 1 [facility] amine 40 mg 9-09 capsule by it y of capsule 00:00: mouth [place] 00 every Medical morning. Branch lisdexamfet 2019-0 Yes [id number] 40mg Take 1 [facility] amine 40 mg 9-09 capsule by it y of capsule 00:00: mouth [place] 00 every Medical morning. Branch lisdexamfet 2019-0 Yes [id number] 40mg Take 1 [facility] amine 40 mg 9-09 capsule by it y of capsule 00:00: mouth [place] 00 every Medical morning. Branch lisdexamfet 2019-0 Yes [id number] 40mg Take 1 [facility] amine 40 mg 9-09 capsule by it y of capsule 00:00: mouth [place] 00 every Medical morning. Branch lisdexamfet 2019-0 Yes [id number] 40mg Take 1 [facility] amine 40 mg 9-09 capsule by it y of capsule 00:00: mouth [place] 00 every Medical morning. Branch lisdexamfet 2019-0 Yes [id number] 40mg Take 1 [facility] amine 40 mg 9-09 capsule by it y of capsule 00:00: mouth [place] 00 every Medical morning. Branch lisdexamfet 2019-0 Yes [id number] 40mg Take 1 [facility] amine 40 mg 9-09 capsule by it y of capsule 00:00: mouth [place] 00 every Medical morning. Branch lisdexamfet 2019-0 Yes [id number] 40mg Take 1 [facility] amine 40 mg 9-09 capsule by it y of capsule 00:00: mouth [place] 00 every Medical morning. Branch lisdexamfet 2019-0 Yes [id number] 40mg Take 1 [facility] amine 40 mg 9-09 capsule by it y of capsule 00:00: mouth [place] 00 every Medical morning. Branch lisdexamfet 2019-0 Yes [id number] 40mg Take 1 [facility] amine 40 mg 9-09 capsule by it y of capsule 00:00: mouth [place] 00 every Medical morning. Branch lisdexamfet 2019-0 Yes [id number] 40mg Take 1 [facility] amine 40 mg 9-09 capsule by it y of capsule 00:00: mouth [place] 00 every Medical morning. Branch lisdexamfet 2019-0 Yes [id number] 40mg Take 1 [facility] amine 40 mg 9-09 capsule by it y of capsule 00:00: mouth [place] 00 every Medical morning. Branch lisdexamfet 2019-0 Yes [id number] 40mg Take 1 [facility] amine 40 mg 9-09 capsule by it y of capsule 00:00: mouth [place] 00 every Medical morning. Branch lisdexamfet 2019-0 Yes [id number] 40mg Take 1 [facility] amine 40 mg 9-09 capsule by it y of capsule 00:00: mouth [place] 00 every Medical morning. Branch lisdexamfet 2019-0 Yes [id number] 40mg Take 1 [facility] amine 40 mg 9-09 capsule by it y of capsule 00:00: mouth [place] 00 every Medical morning. Branch lisdexamfet 2019-0 Yes [id number] 40mg Take 1 [facility] amine 40 mg 9-09 capsule by it y of capsule 00:00: mouth [place] 00 every Medical morning. Branch lisdexamfet 2019-0 Yes [id number] 40mg Take 1 [facility] amine 40 mg 9-09 capsule by it y of capsule 00:00: mouth [place] 00 every Medical morning. Branch lisdexamfet 2019-0 Yes [id number] 40mg Take 1 [facility] amine 40 mg 9-09 capsule by it y of capsule 00:00: mouth [place] 00 every Medical morning. Branch lisdexamfet 2019-0 Yes [id number] 40mg Take 1 [facility] amine 40 mg 9-09 capsule by it y of capsule 00:00: mouth [place] 00 every Medical morning. Branch lisdexamfet 2019-0 Yes [id number] 40mg Take 1 [facility] amine 40 mg 9-09 capsule by it y of capsule 00:00: mouth [place] 00 every Medical morning. Branch lisdexamfet 2019-0 Yes [id number] 40mg Take 1 [facility] amine 40 mg 9-09 capsule by it y of capsule 00:00: mouth [place] 00 every Medical morning. Branch lisdexamfet 2019-0 Yes [id number] 40mg Take 1 [facility] amine 40 mg 9-09 capsule by it y of capsule 00:00: mouth [place] 00 every Medical morning. Branch lisdexamfet 2019-0 Yes [id number] 40mg Take 1 [facility] amine 40 mg 9-09 capsule by it y of capsule 00:00: mouth [place] 00 every Medical morning. Branch lisdexamfet 2019-0 Yes [id number] 40mg Take 1 [facility] amine 40 mg 9-09 capsule by it y of capsule 00:00: mouth [place] 00 every Medical morning. Branch XOPENEX HFA 2019-0 Yes [id number] INHALE 2 [facility] 45 9-06 PUFFS BY ity of mcg/actuati 00:00: MOUTH [place] on inhaler 00 EVERY 6 Medica l HOURS Branch NEEDED BEFORE EXERCISE OR FOR WHEEZING/S HORTNESS OF BREATH. XOPENEX HFA 2019-0 Yes [id number] INHALE 2 [facility] 45 9-06 PUFFS BY ity of mcg/actuati 00:00: MOUTH [place] on inhaler 00 EVERY 6 Medica l HOURS Branch NEEDED BEFORE EXERCISE OR FOR WHEEZING/S HORTNESS OF BREATH. XOPENEX HFA 2019- Yes [id number] INHALE 2 [facility] 45 9-06 PUFFS BY ity of mcg/actuati 00:00: MOUTH [place] on inhaler 00 EVERY 6 Medica l HOURS Branch NEEDED BEFORE EXERCISE OR FOR WHEEZING/S HORTNESS OF BREATH. XOPENEX HFA 2018- Yes [id number] INHALE 2 [facility] 45 9-05 PUFFS BY ity of mcg/actuati 00:00: MOUTH [place] on inhaler 00 EVERY 6 Medica l HOURS Branch NEEDED BEFORE EXERCISE OR FOR WHEEZING/S HORTNESS OF BREATH. XOPENEX HFA 2018- 2019- No [id number] INHALE 2 [facility] 45 9-05 09-06 PUFFS BY ity of mcg/actuati 00:00: 00:00 MOUTH [place] inhaler 00 :00 EVERY 6 Medica l HOURS Branch NEEDED BEFORE EXERCISE OR FOR WHEEZING/S HORTNESS OF BREATH. XOPENEX HFA 2018- Yes [id number] INHALE 2 [facility] 45 8-15 PUFFS BY ity of mcg/actuati 00:00: MOUTH [place] on inhaler 00 EVERY 6 Medica l HOURS Branch NEEDED BEFORE EXERCISE OR FOR WHEEZING, SHORTNESS OF BREATH. XOPENEX HFA 2018- Yes [id number] INHALE 2 [facility] 45 8-15 PUFFS BY ity of mcg/actuati 00:00: MOUTH [place] on inhaler 00 EVERY 6 Medica l HOURS Branch NEEDED BEFORE EXERCISE OR FOR WHEEZING, SHORTNESS OF BREATH. XOPENEX HFA 2018- Yes [id number] INHALE 2 [facility] 45 8-15 PUFFS BY ity of mcg/actuati 00:00: MOUTH [place] on inhaler 00 EVERY 6 Medica l HOURS Branch NEEDED BEFORE EXERCISE OR FOR WHEEZING, SHORTNESS OF BREATH. XOPENEX HFA 2018- Yes [id number] INHALE 2 [facility] 45 8-15 PUFFS BY ity of mcg/actuati 00:00: MOUTH [place] on inhaler 00 EVERY 6 Medica l HOURS Branch NEEDED BEFORE EXERCISE OR FOR WHEEZING, SHORTNESS OF BREATH. XOPENEX HFA 2018- 2019- No [id number] INHALE 2 [facility] 45 8-15 09-04 PUFFS BY ity of mcg/actuati 00:00: 00:00 MOUTH [place] on inhaler 00 :00 EVERY 6 Medica l HOURS Branch NEEDED BEFORE EXERCISE OR FOR WHEEZING, SHORTNESS OF BREATH. amantadine 2019- Yes [id number] 200mg Take 2 [facility] HCl 100 mg 8-14 capsules ity o f capsule 00:00: by mouth 2 [place] 00 (two) Medical times Branch daily. SERTraline 2019- Yes [id number] 25mg Take 1 [facility] n[facility] 25 mg 8-14 tablet by ity of tablet 00:00: mouth [place] 00 daily. Medical Branch ARIPiprazol Yes [id number] 2mg Take 1 [facility] e (ABILIFY) 8-14 tablet by ity of 2 mg tablet 00:00: mouth [place] 00 daily. Medical Branch busPIRone Yes [id number] 15mg Take 1 [facility] nivers 15 mg 8-14 tablet by ity of tablet 00:00: mouth 2 [place] 00 (two) Medical times Branch daily. risperiDONE Yes [id number] .25mg Take 1-2 [facility] (RISPERDAL) 8-14 tablets by it y of 0.25 mg 00:00: mouth 2 [place] tablet 00 (two) Medical times Branch daily. Take 2 tablets in the morning and 1 tablet at night time amantadine 2018- Yes [id number] 200mg Take 2 [facility] HCl 100 mg 8-14 capsules ity o f capsule 00:00: by mouth 2 [place] 00 (two) Medical times Branch daily. SERTraline Yes [id number] 25mg Take 1 [facility] nivers 25 mg 8-14 tablet by ity of tablet 00:00: mouth 00 daily. Medical Branch ARIPiprazol Yes [id number] 2mg Take 1 [facility] e (ABILIFY) 8-14 tablet by ity of 2 mg tablet 00:00: mouth [place] 00 daily. Medical Branch busPIRone Yes [id number] 15mg Take 1 U nivers 15 mg 8-14 tablet by ity of tablet 00:00: mouth 2 [place] 00 (two) Medical times Branch daily. risperiDONE Yes [id number] .25mg Take 1-2 [facility] (RISPERDAL) 8-14 tablets by it y of 0.25 mg 00:00: mouth 2 [place] tablet 00 (two) Medical times Branch daily. Take 2 tablets in the morning and 1 tablet at night time amantadine 2018- Yes [id number] 200mg Take 2 [facility] HCl 100 mg 8-14 capsules ity o f capsule 00:00: by mouth 2 [place] 00 (two) Medical times Branch daily. SERTraline 2019- Yes [id number] 25mg Take 1 [facility] nivers 25 mg 8-14 tablet by ity of tablet 00:00: mouth [place] 00 daily. Medical Branch ARIPiprazol 2018- Yes [id number] 2mg Take 1 [facility] e (ABILIFY) 8-14 tablet by ity of 2 mg tablet 00:00: mouth [place] 00 daily. Medical Branch busPIRone Yes [id number] 15mg Take 1 U nivers 15 mg 8-14 tablet by ity of tablet 00:00: mouth 2 [place] 00 (two) Medical times Branch daily. risperiDONE Yes [id number] .25mg Take 1-2 [facility] (RISPERDAL) 8-14 tablets by it y of 0.25 mg 00:00: mouth 2 [place] tablet 00 (two) Medical times Branch daily. Take 2 tablets in the morning and 1 tablet at night time amantadine 2018- Yes [id number] 200mg Take 2 [facility] HCl 100 mg 8-14 capsules ity o f capsule 00:00: by mouth 2 [place] 00 (two) Medical times Branch daily. SERTraline 2018- Yes [id number] 25mg Take 1 [facility] nivers 25 mg 8-14 tablet by ity of tablet 00:00: mouth [place] 00 daily. Medical Branch ARIPiprazol Yes [id number] 2mg Take 1 [facility] e (ABILIFY) 8-14 tablet by ity of 2 mg tablet 00:00: mouth [place] 00 daily. Medical Branch busPIRone 2018- Yes [id number] 15mg Take 1 [facility] nivers 15 mg 8-14 tablet by ity of tablet 00:00: mouth 2 [place] 00 (two) Medical times Branch daily. risperiDONE 2019- Yes [id number] .25mg Take 1-2 [facility] (RISPERDAL) 8-14 tablets by it y of 0.25 mg 00:00: mouth 2 [place] tablet 00 (two) Medical times Branch daily. Take 2 tablets in the morning and 1 tablet at night time amantadine Yes [id number] 200mg Take 2 [facility] HCl 100 mg 8-14 capsules ity o f capsule 00:00: by mouth 2 [place] 00 (two) Medical times Branch daily. SERTraline 2018- Yes [id number] 25mg Take 1 [facility] nivers 25 mg 8-14 tablet by ity of tablet 00:00: mouth [place] 00 daily. Medical Branch ARIPiprazol Yes [id number] 2mg Take 1 [facility] e (ABILIFY) 8-14 tablet by ity of 2 mg tablet 00:00: mouth [place] 00 daily. Medical Branch busPIRone Yes [id number] 15mg Take 1 [facility] nivers 15 mg 8-14 tablet by ity of tablet 00:00: mouth 2 [place] 00 (two) Medical times Branch daily. risperiDONE Yes [id number] .25mg Take 1-2 [facility] (RISPERDAL) 8-14 tablets by it y of 0.25 mg 00:00: mouth 2 [place] tablet 00 (two) Medical times Branch daily. Take 2 tablets in the morning and 1 tablet at night time amantadine Yes [id number] 200mg Take 2 [facility] HCl 100 mg 8-14 capsules ity o f capsule 00:00: by mouth 2 [place] 00 (two) Medical times Branch daily. SERTraline Yes [id number] 25mg Take 1 [facility] nivers 25 mg 8-14 tablet by ity of tablet 00:00: mouth [place] 00 daily. Medical Branch ARIPiprazol Yes [id number] 2mg Take 1 [facility] e (ABILIFY) 8-14 tablet by ity of 2 mg tablet 00:00: mouth [place] 00 daily. Medical Branch busPIRone Yes [id number] 15mg Take 1 [facility] nivers 15 mg 8-14 tablet by ity of tablet 00:00: mouth 2 [place] 00 (two) Medical times Branch daily. risperiDONE 2019 Yes [id number] .25mg Take 1-2 [facility] (RISPERDAL) 8-14 tablets by it y of 0.25 mg 00:00: mouth 2 [place] tablet 00 (two) Medical times Branch daily. Take 2 tablets in the morning and 1 tablet at night time amantadine Yes [id number] 200mg Take 2 [facility] HCl 100 mg 8-14 capsules ity o f capsule 00:00: by mouth 2 [place] 00 (two) Medical times Branch daily. SERTraline 2019- Yes [id number] 25mg Take 1 [facility] nivers 25 mg 8-14 tablet by ity of tablet 00:00: mouth [place] 00 daily. Medical Branch ARIPiprazol Yes [id number] 2mg Take 1 [facility] e (ABILIFY) 8-14 tablet by ity of 2 mg tablet 00:00: mouth [place] 00 daily. Medical Branch busPIRone Yes [id number] 15mg Take 1 U nivers 15 mg 8-14 tablet by ity of tablet 00:00: mouth 2 [place] 00 (two) Medical times Branch daily. risperiDONE Yes [id number] .25mg Take 1-2 [facility] (RISPERDAL) 8-14 tablets by it y of 0.25 mg 00:00: mouth 2 [place] tablet 00 (two) Medical times Branch daily. Take 2 tablets in the morning and 1 tablet at night time amantadine 2018- Yes [id number] 200mg Take 2 [facility] HCl 100 mg 8-14 capsules ity o f capsule 00:00: by mouth 2 [place] 00 (two) Medical times Branch daily. SERTraline Yes [id number] 25mg Take 1 [facility] nivers 25 mg 8-14 tablet by ity of tablet 00:00: mouth [place] 00 daily. Medical Branch ARIPiprazol Yes [id number] 2mg Take 1 [facility] e (ABILIFY) 8-14 tablet by ity of 2 mg tablet 00:00: mouth [place] 00 daily. Medical Branch busPIRone Yes [id number] 15mg Take 1 U nivers 15 mg 8-14 tablet by ity of tablet 00:00: mouth 2 [place] 00 (two) Medical times Branch daily. risperiDONE 2019- Yes [id number] .25mg Take 1-2 [facility] (RISPERDAL) 8-14 tablets by it y of 0.25 mg 00:00: mouth 2 [place] tablet 00 (two) Medical times Branch daily. Take 2 tablets in the morning and 1 tablet at night time amantadine 2018- Yes [id number] 200mg Take 2 [facility] HCl 100 mg 8-14 capsules ity o f capsule 00:00: by mouth 2 [place] 00 (two) Medical times Branch daily. SERTraline 2019- Yes [id number] 25mg Take 1 [facility] nivers 25 mg 8-14 tablet by ity of tablet 00:00: mouth [place] 00 daily. Medical Branch ARIPiprazol 2018- Yes [id number] 2mg Take 1 [facility] e (ABILIFY) 8-14 tablet by ity of 2 mg tablet 00:00: mouth [place] 00 daily. Medical Branch busPIRone Yes [id number] 15mg Take 1 U nivers 15 mg 8-14 tablet by ity of tablet 00:00: mouth 2 [place] 00 (two) Medical times Branch daily. risperiDONE 2018- Yes [id number] .25mg Take 1-2 [facility] (RISPERDAL) 8-14 tablets by it y of 0.25 mg 00:00: mouth 2 [place] tablet 00 (two) Medical times Branch daily. Take 2 tablets in the morning and 1 tablet at night time amantadine 2018- Yes [id number] 200mg Take 2 [facility] HCl 100 mg 8-14 capsules ity o f capsule 00:00: by mouth 2 [place] 00 (two) Medical times Branch daily. SERTraline 2018- Yes [id number] 25mg Take 1 [facility] nivers 25 mg 8-14 tablet by ity of tablet 00:00: mouth [place] 00 daily. Medical Branch ARIPiprazol Yes [id number] 2mg Take 1 [facility] e (ABILIFY) 8-14 tablet by ity of 2 mg tablet 00:00: mouth [place] 00 daily. Medical Branch busPIRone Yes [id number] 15mg Take 1 [facility] nivers 15 mg 8-14 tablet by ity of tablet 00:00: mouth 2 [place] 00 (two) Medical times Branch daily. risperiDONE 2019- Yes [id number] .25mg Take 1-2 [facility] (RISPERDAL) 8-14 tablets by it y of 0.25 mg 00:00: mouth 2 [place] tablet 00 (two) Medical times Branch daily. Take 2 tablets in the morning and 1 tablet at night time cloNIDine 2019-0 Yes [id number] .1mg Take 1 [place] HCl 8-07 tablet by ity of (KAPVAY) 00:00: mouth at [place] 0.1 mg 00 bedtime. Medical tablet Branch cloNIDine Yes [id number] .1mg Take 1 [facility] [place] HCl 8-07 tablet by ity of (KAPVAY) 00:00: mouth at [place] 0.1 mg 00 bedtime. Medical tablet Branch cloNIDine 2019- No [id number] .1mg Take 1 U nivers HCl 8-07 08-14 tablet by ity of (KAPVAY) 00:00: 00:00 mouth at [place] 0.1 mg 00 :00 bedtime. Medical tablet Branch cloNIDine 2019- No [id number] .1mg Take 1 U nivers HCl 8-07 08-14 tablet by ity of (KAPVAY) 00:00: 00:00 mouth at [place] 0.1 mg 00 :00 bedtime. Medical tablet Branch XOPENEX HFA Yes [id number] INHALE 2 [facility] 45 7-29 PUFFS BY ity of mcg/actuati 00:00: MOUTH [place] on inhaler 00 EVERY 6 Medica l HOURS Branch NEEDED FOR SHORTNESS OF BREATH, WHEEZING OR BEFORE EXERCISE. XOPENEX HFA Yes [id number] INHALE 2 [facility] 45 7-29 PUFFS BY ity of mcg/actuati 00:00: MOUTH [place] on inhaler 00 EVERY 6 Medica l HOURS Branch NEEDED FOR SHORTNESS OF BREATH, WHEEZING OR BEFORE EXERCISE. XOPENEX HFA Yes [id number] INHALE 2 [facility] 45 7-29 PUFFS BY ity of mcg/actuati 00:00: MOUTH [place] on inhaler 00 EVERY 6 Medica l HOURS Branch NEEDED FOR SHORTNESS OF BREATH, WHEEZING OR BEFORE EXERCISE. XOPENEX HFA Yes [id number] INHALE 2 [facility] 45 7-29 PUFFS BY ity of mcg/actuati 00:00: MOUTH [place] on inhaler 00 EVERY 6 Medica l HOURS Branch NEEDED FOR SHORTNESS OF BREATH, WHEEZING OR BEFORE EXERCISE. XOPENEX HFA 2019- No [id number] INHALE 2 [facility] 45 7-29 08-15 PUFFS BY ity of mcg/actuati 00:00: 00:00 MOUTH [place] on inhaler 00 :00 EVERY 6 Medica l HOURS Branch NEEDED FOR SHORTNESS OF BREATH, WHEEZING OR BEFORE EXERCISE. XOPENEX HFA 2019- No [id number] INHALE 2 [facility] 45 7-29 08-15 PUFFS BY ity of mcg/actuati 00:00: 00:00 MOUTH [place] on inhaler 00 :00 EVERY 6 Medica l HOURS Branch NEEDED FOR SHORTNESS OF BREATH, WHEEZING OR BEFORE EXERCISE. XOPENEX HFA 2019- No [id number] INHALE 2 [facility] 45 7-29 08-15 PUFFS BY ity of mcg/actuati 00:00: 00:00 MOUTH [place] on inhaler 00 :00 EVERY 6 Medica l HOURS Branch NEEDED FOR SHORTNESS OF BREATH, WHEEZING OR BEFORE EXERCISE. amantadine Yes [id number] 200mg Take 20 mL [facility] HCl 50 mg/5 7-23 by mouth 2 it y of mL solution 00:00: (two) [place] 00 times Medical daily. Branch amantadine Yes [id number] 200mg Take 20 mL [facility] HCl 50 mg/5 7-23 by mouth 2 it y of mL solution 00:00: (two) [place] 00 times Medical daily. Branch amantadine Yes [id number] 200mg Take 20 mL [facility] HCl 50 mg/5 7-23 by mouth 2 it y of mL solution 00:00: (two) [place] 00 times Medical daily. Branch amantadine Yes [id number] 200mg Take 20 mL [facility] HCl 50 mg/5 7-23 by mouth 2 it y of mL solution 00:00: (two) [place] 00 times Medical daily. Branch amantadine 2019- No [id number] 200mg Take 20 mL [facility] HCl 50 mg/5 7-23 08-14 by mouth 2 i ty of mL solution 00:00: 00:00 (two) [place] 00 :00 times Medical daily. Branch amantadine 2019- No [id number] 200mg Take 20 mL [facility] HCl 50 mg/5 7-23 08-14 by mouth 2 i ty of mL solution 00:00: 00:00 (two) [place] 00 :00 times Medical daily. Branch busPIRone Yes [id number] 15mg Take 1 U nivers 15 mg 7-18 tablet by ity of tablet 00:00: mouth 2 [place] 00 (two) Medical times Branch daily. busPIRone Yes [id number] 15mg Take 1 U nivers 15 mg 7-18 tablet by ity of tablet 00:00: mouth 2 [place] [address] (two) Medical times Branch daily. busPIRone Yes [id number] 15mg Take 1 U nivers 15 mg 7-18 tablet by ity of tablet 00:00: mouth 2 [place] (two) Medical times Branch daily. busPIRone Yes [id number] 15mg Take 1 U nivers 15 mg 7-18 tablet by ity of tablet 00:00: mouth 2 [place] 00 (two) Medical times Branch daily. busPIRone 2019- No [id number] 15mg Take 1 [facility] 15 mg 7-18 08-14 tablet by ity of tablet 00:00: 00:00 mouth 2 [place] 00 :00 (two) Medical times Branch daily. busPIRone 2019- No [id number] 15mg Take 1 [facility] 15 mg 7-18 08-14 tablet by ity of tablet 00:00: 00:00 mouth 2 [place] 00 :00 ([facility]) Medical times Branch daily. XOPENEX HFA 2019- No [id number] INHALE 2 [facility] 45 7-10 07-29 PUFFS BY ity of mcg/actuati 00:00: 00:00 MOUTH [place] on inhaler 00 :00 EVERY 6 Medica l HOURS Branch NEEDED SHORTNESS OF BREATH, WHEEZING, OR BEFORE EXERCISE fluticasone Yes [id number] 1{puff} Inhale 1 [facility] propionate 7-01 Puff 2 ity of (FLOVENT 00:00: ([facility]) 110 00 times Medical mcg/actuati daily. Branch on inhaler fluticasone Yes [id number] 1{puff} Inhale 1 [facility] propionate 7-01 Puff 2 ity of (FLOVENT 00:00: ([facility]) 110 00 times Medical mcg/actuati daily. Branch on inhaler fluticasone Yes [id number] 1{puff} Inhale 1 [facility] propionate 7-01 Puff 2 ity of (FLOVENT 00:00: ([facility]) 110 00 times Medical mcg/actuati daily. Branch on inhaler fluticasone Yes [id number] 1{puff} Inhale 1 [facility] propionate 7-01 Puff 2 ity of (FLOVENT 00:00: (two) [place] [facility]) 110 00 times Medical mcg/actuati daily. Branch on inhaler fluticasone Yes [id number] 1{puff} Inhale 1 [facility] propionate 7-01 Puff 2 ity of (FLOVENT 00:00: (two) [place] [facility]) 110 00 times Medical mcg/actuati daily. Branch on inhaler fluticasone Yes [id number] 1{puff} Inhale 1 [facility] propionate 7-01 Puff 2 ity of (FLOVENT 00:00: (two) [place] [facility]FA) 110 00 times Medical mcg/actuati daily. Branch on inhaler fluticasone Yes [id number] 1{puff} Inhale 1 [facility] propionate 7-01 Puff 2 ity of (FLOVENT 00:00: ([facility]) [place] [facility]FA) 110 00 times Medical mcg/actuati daily. Branch on inhaler fluticasone Yes [id number] 1{puff} Inhale 1 [facility] propionate 7-01 Puff 2 ity of (FLOVENT 00:00: ([facility]) [place] [facility]FA) 110 00 times Medical mcg/actuati daily. Branch on inhaler fluticasone Yes [id number] 1{puff} Inhale 1 [facility] propionate 7-01 Puff 2 ity of (FLOVENT 00:00: ([facility]) [place] HFA) 110 00 times Medical mcg/actuati daily. Branch on inhaler fluticasone Yes [id number] 1{puff} Inhale 1 [facility] propionate 7-01 Puff 2 ity of (FLOVENT 00:00: ([facility]) [place] HFA) 110 00 times Medical mcg/actuati daily. Branch on inhaler fluticasone Yes [id number] 1{puff} Inhale 1 [facility] propionate 7-01 Puff 2 ity of (FLOVENT 00:00: (two) [place] [facility]FA) 110 00 times Medical mcg/actuati daily. Branch on inhaler fluticasone Yes [id number] 1{puff} Inhale 1 [facility] propionate 7-01 Puff 2 ity of (FLOVENT 00:00: (two) [place] HFA) 110 00 times Medical mcg/actuati daily. Branch on inhaler fluticasone Yes [id number] 1{puff} Inhale 1 [facility] propionate 7-01 Puff 2 ity of (FLOVENT 00:00: () [place] HFA) 110 00 times Medical mcg/actuati daily. Branch on inhaler fluticasone Yes [id number] 1{puff} Inhale 1 [facility] propionate 7-01 Puff 2 ity of (FLOVENT 00:00: () [place] HFA) 110 00 times Medical mcg/actuati daily. Branch on inhaler ARIPiprazol Yes [id number] 2mg Take 1 [facility] e (ABILIFY) 6-20 tablet by ity of 2 mg tablet 00:00: mouth [place] 00 daily. Medical Branch ARIPiprazol Yes [id number] 2mg Take 1 [facility] e (ABILIFY) 6-20 tablet by ity of 2 mg tablet 00:00: mouth [place] 00 daily. Medical Branch ARIPiprazol Yes [id number] 2mg Take 1 [facility] e (ABILIFY) 6-20 tablet by ity of 2 mg tablet 00:00: mouth [place] 00 daily. Medical Branch ARIPiprazol Yes [id number] 2mg Take 1 [facility] e (ABILIFY) 6-20 tablet by ity of 2 mg tablet 00:00: mouth [place] 00 daily. Medical Branch ARIPiprazol 2019- No [id number] 2mg Take 1 [facility] e (ABILIFY) 6-20 08-14 tablet by it y of 2 mg tablet 00:00: 00:00 [place] 00 :00 daily. [facility] ARIPiprazol 2019- No [id number] 2mg Take 1 [facility] e (ABILIFY) 6-20 08-14 tablet by it y of 2 mg tablet 00:00: 00:00 [place] 00 :00 daily. [facility] lisdexamfet Yes [id number] 40mg Take 1 [facility] amine 40 mg 6-19 capsule by it y of capsule 00:00: mouth [place] 00 every Medical morning. Branch lisdexamfet Yes [id number] 40mg Take 1 [facility] amine 40 mg 6-19 capsule by it y of capsule 00:00: mouth [place] 00 every Medical morning. Branch lisdexamfet 2019-0 Yes [id number] 40mg Take 1 [facility] amine 40 mg 6-19 capsule by it y of capsule 00:00: mouth [place] 00 every Medical morning. Branch lisdexamfet 2019-0 Yes [id number] 40mg Take 1 [facility] amine 40 mg 6-19 capsule by it y of capsule 00:00: mouth [place] 00 every Medical morning. Branch lisdexamfet 2019-0 Yes [id number] 40mg Take 1 [facility] amine 40 mg 6-19 capsule by it y of capsule 00:00: mouth [place] 00 every Medical morning. Branch lisdexamfet 2019-0 Yes [id number] 40mg Take 1 [facility] amine 40 mg 6-19 capsule by it y of capsule 00:00: mouth [place] 00 every Medical morning. Branch lisdexamfet 2019-0 Yes [id number] 40mg Take 1 [facility] amine 40 mg 6-19 capsule by it y of capsule 00:00: mouth [place] 00 every Medical morning. Branch lisdexamfet 2018-0 Yes [id number] 40mg Take 1 [facility] amine 40 mg 6-19 capsule by it y of capsule 00:00: mouth [place] 00 every Medical morning. Branch lisdexamfet 2018-0 Yes [id number] 40mg Take 1 [facility] amine 40 mg 6-19 capsule by it y of capsule 00:00: mouth [place] 00 every Medical morning. Branch lisdexamfet 2019-0 Yes [id number] 40mg Take 1 [facility] amine 40 mg 6-19 capsule by it y of capsule 00:00: mouth [place] 00 every Medical morning. Branch lisdexamfet 2019-0 Yes [id number] 40mg Take 1 [facility] amine 40 mg 6-19 capsule by it y of capsule 00:00: mouth [place] 00 every Medical morning. Branch lisdexamfet 2019-0 Yes [id number] 40mg Take 1 [facility] amine 40 mg 6-19 capsule by it y of capsule 00:00: mouth [place] 00 every Medical morning. Branch lisdexamfet 2019-0 Yes [id number] 40mg Take 1 [facility] amine 40 mg 6-19 capsule by it y of capsule 00:00: mouth [place] 00 every Medical morning. Branch lisdexamfet 2019-0 2019- No [id number] 40mg Take 1 [facility] amine 40 mg 6-19 -09 capsule by i ty of capsule 00:00: 00:00 mouth [place] 00 :00 every Medical morning. Branch cloNIDine Yes [id number] .1mg Take 1 [place] HCl 5-07 tablet by ity of (KAPVAY) 00:00: mouth at [place] 0.1 mg 00 bedtime. Medical tablet Branch cloNIDine Yes [id number] .1mg Take 1 [place] HCl 5-07 tablet by ity of (KAPVAY) 00:00: mouth at [place] 0.1 mg 00 bedtime. Medical tablet Branch cloNIDine 2019- No [id number] .1mg Take 1 U n[facility] HCl 5-07 08-07 tablet by ity of (KAPVAY) 00:00: 00:00 [place] 0.1 mg 00 :00 bedtime. Medical tablet Branch XOPENEX HFA Yes [id number] INHALE 2 [facility] 45 5-06 PUFFS BY ity of mcg/actuati 00:00: MOUTH [place] on inhaler 00 EVERY 6 Medica l HOURS Branch NEEDED BEFORE EXERCISE OR FOR WHEEZING, SHORTNESS OF BREATH. XOPENEX HFA Yes [id number] INHALE 2 [facility] 45 5-06 PUFFS BY ity of mcg/actuati 00:00: MOUTH [place] on inhaler 00 EVERY 6 Medica l HOURS Branch NEEDED BEFORE EXERCISE OR FOR WHEEZING, SHORTNESS OF BREATH. XOPENEX HFA Yes [id number] INHALE 2 [facility] 45 5-06 PUFFS BY ity of mcg/actuati 00:00: MOUTH [place] on inhaler 00 EVERY 6 Medica l HOURS Branch NEEDED BEFORE EXERCISE OR FOR WHEEZING, SHORTNESS OF BREATH. XOPENEX HFA Yes [id number] INHALE 2 [facility] 45 5-06 PUFFS BY ity of mcg/actuati 00:00: MOUTH [place] on inhaler 00 EVERY 6 Medica l HOURS Branch NEEDED BEFORE EXERCISE OR FOR WHEEZING, SHORTNESS OF BREATH. XOPENEX HFA 2019- No [id number] INHALE 2 [facility] 45 5-06 08-15 PUFFS BY ity of mcg/actuati 00:00: 00:00 MOUTH [place] inhaler 00 :00 EVERY 6 Medica l HOURS Branch NEEDED BEFORE EXERCISE OR FOR WHEEZING, SHORTNESS OF BREATH. XOPENEX HFA 2019- No [id number] INHALE 2 [facility] 45 5-06 08-15 PUFFS BY ity of mcg/actuati 00:00: 00:00 MOUTH [place] on inhaler 00 :00 EVERY 6 Medica l HOURS Branch NEEDED BEFORE EXERCISE OR FOR WHEEZING, SHORTNESS OF BREATH. XOPENEX HFA 2019- No [id number] INHALE 2 [facility] 45 5-06 08-15 PUFFS BY ity of mcg/actuati 00:00: 00:00 MOUTH [place] on inhaler 00 :00 EVERY 6 Medica l HOURS Branch NEEDED BEFORE EXERCISE OR FOR WHEEZING, SHORTNESS OF BREATH. HOMEOPATHIC 2019- No Take by [place] DRUGS -24 04-24 mouth. ity of (THROAT 16:25: 00:00 [place] ORAL) 04 :00 Medical Branch cyproheptad 2019- No 2mg Take 2 mg [facility] ine 11-09-24 by mouth 2 ity of (PERIACTIN) 15:47: 00:00 (two) [place] 2 mg/5 mL 56 :00 times Medical solution daily. Branch Take 20 ml BID , per mom bethanechol 2019- No 7.5mg Take 7.5 [facility] 5 mg/ml 24 04-24 mg by ity of (COMPOUNDED 15:47: 00:00 mouth 3 [place] Susp 47 :00 (three) Medical suspension times Branch daily. SERTraline Yes [id number] 25mg Take 0.5-1 [facility] 50 mg 4-24 tablets by ity of tablet 00:00: mouth [place] 00 daily. Medical Branch risperiDONE Yes [id number] .5mg Take 2 [facility] (RISPERDAL) 4-24 tablets by it y of 0.25 mg 00:00: mouth 2 [place] tablet 00 (two) Medical times Branch daily. SERTraline 2018- Yes [id number] 25mg Take 0.5-1 [facility] 50 mg 4-24 tablets by ity of tablet 00:00: mouth [place] 00 daily. Medical Branch risperiDONE Yes [id number] .5mg Take 2 [facility] (RISPERDAL) 4-24 tablets by it y of 0.25 mg 00:00: mouth 2 [place] tablet 00 (two) Medical times Branch daily. SERTraline Yes [id number] 25mg Take 0.5-1 [facility] 50 mg 4-24 tablets by ity of tablet 00:00: mouth [place] 00 daily. Medical Branch risperiDONE Yes [id number] .5mg Take 2 [facility] (RISPERDAL) 4-24 tablets by it y of 0.25 mg 00:00: mouth 2 [place] tablet 00 (two) Medical times Branch daily. SERTraline Yes [id number] 25mg Take 0.5-1 [facility] 50 mg 4-24 tablets by ity of tablet 00:00: mouth [place] 00 daily. Medical Branch risperiDONE Yes [id number] .5mg Take 2 [facility] (RISPERDAL) 4-24 tablets by it y of 0.25 mg 00:00: mouth 2 [place] tablet 00 (two) Medical times Branch daily. SERTraline 2019- No [id number] 25mg Take 0.5-1 [facility] 50 mg 4-24 08-14 tablets by ity of tablet 00:00: 00:00 mouth [place] 00 :00 daily. Medical Branch risperiDONE 2019- No [id number] .5mg Take 2 [facility] (RISPERDAL) 4-24 08-14 tablets by i ty of 0.25 mg 00:00: 00:00 mouth 2 [place] tablet 00 :00 (two) Medical times Branch daily. SERTraline 2019- No [id number] 25mg Take 0.5-1 [facility] 50 mg 4-24 08-14 tablets by ity of tablet 00:00: 00:00 mouth [place] 00 :00 daily. Medical Branch risperiDONE 2019- No [id number] .5mg Take 2 [facility] (RISPERDAL) 4-24 08-14 tablets by i ty of 0.25 mg 00:00: 00:00 mouth 2 [place] tablet 00 :00 (two) Medical times Branch daily. ARIPIPRAZOL Yes TAKE 1 Univ ers E 5 mg 1-04 TABLET BY ity of tablet 00:00: MOUTH [place] 00 EVERY Medical DAY([facility] Liang Main MD) ARIPIPRAZOL Yes TAKE 1 Univ ers E 5 mg 1-04 TABLET BY ity of tablet 00:00: MOUTH [place] 00 EVERY Medical DAY(DESIRE Eddie Main MD) ARIPIPRAZOL Yes TAKE 1 [...] 00 :00 EVERY Medical DAY(HAILEY Main MD) [place] [id number] 2017-07 Yes 12 ml BID [place] MG/ML ORAL 2-19 , per mom ity of SOLN 21:44: [address] ESOMEPRAZOL 2017-07 Yes 20mg Take 20 mg [facility] E MAG 2-19 by mouth ity of TRIHYDRATE 21:44: once now. [place] (NEXIUM 48 Medical ORAL) [place] [id number] 2017-07 Yes 12 ml BID [place] MG/ML ORAL 2-19 , per mom ity of SOLN 21:44: [address] ESOMEPRAZOL 2017-07 Yes 20mg Take 20 mg [facility] E MAG 2-19 by mouth ity of TRIHYDRATE 21:44: once now. [place] (NEXIUM 48 Medical ORAL) [place] [id number] 2017-07 Yes 12 ml BID [place] MG/ML ORAL 2-19 , per mom ity of SOLN 21:44: [address] ESOMEPRAZOL 2017-07 Yes 20mg Take 20 mg [facility] E MAG 2-19 by mouth ity of TRIHYDRATE 21:44: once now. [place] (NEXIUM 48 Medical ORAL) [place] [id number] 2017-07 Yes 12 ml BID [place] MG/ML ORAL 2-19 , per mom ity of SOLN 21:44: [address] 2017-07 Yes 20mg Take 20 mg [facility] E MAG 2-19 by mouth ity of TRIHYDRATE 21:44: once now. [place] (NEXIUM 48 Medical ORAL) [place] [id number] 2017-07 Yes 12 ml BID [place] MG/ML ORAL 2-19 , per mom ity of SOLN 21:44: [address] 2017-07 Yes 20mg Take 20 mg [facility] E MAG 2-19 by mouth ity of TRIHYDRATE 21:44: once now. [place] (NEXIUM 48 Medical ORAL) [place] [id number] 2017-07 Yes 12 ml BID [place] MG/ML ORAL 2-19 , per mom ity of SOLN 21:44: [address] [facility] Yes 20mg Take 20 mg [facility] E MAG 2-19 by mouth ity of TRIHYDRATE 21:44: once now. [place] (NEXIUM 48 Medical ORAL) [place] [id number] 2017-07 Yes 12 ml BID [place] MG/ML ORAL 2-19 , per mom ity of SOLN 21:44: [address] 2017-07 Yes 20mg Take 20 mg [facility] E MAG 2-19 by mouth ity of TRIHYDRATE 21:44: once now. [place] (NEXIUM 48 Medical ORAL) [place] [id number] 2017-07 Yes 12 ml BID [place] MG/ML ORAL 2-19 , per mom ity of SOLN 21:44: [address] Yes 20mg Take 20 mg [facility] E MAG 2-19 by mouth ity of TRIHYDRATE 21:44: once now. [place] (NEXIUM 48 Medical ORAL) [place] [id number] 2017-07 Yes 12 ml BID [place] MG/ML ORAL 2-19 , per mom ity of SOLN 21:44: [place] [address] 2017-07 Yes 12 ml BID [place] MG/ML ORAL 2-19 , per mom ity of SOLN 21:44: [address] 2017-07 Yes 20mg Take 20 mg [facility] E MAG 2-19 by mouth ity of TRIHYDRATE 21:44: once [place]. [place] (N[facility]IUM 48 [facility] 20 mg [facility] E MAG 2-19 by mouth ity of TRIHYDRATE 21:44: once now. [place] (NEXIUM 48 Medical ORAL) Branch [place] [id number] 2017-07 Yes 12 ml BID [place] MG/ML ORAL 2-19 , per mom ity of SOLN 21:44: [address] 2017-07 Yes 20mg Take 20 mg [facility] E MAG 2-19 by mouth ity of TRIHYDRATE 21:44: once now. [place] (NEXIUM 48 Medical ORAL) Branch [place] [id number] 2017-07 Yes 12 ml BID [place] MG/ML ORAL 2-19 , per mom ity of SOLN 21:44: [address] 2017-07 Yes 20mg Take 20 mg [facility] E MAG 2-19 by mouth ity of TRIHYDRATE 21:44: once now. [place] (NEXIUM 48 Medical ORAL) [place] [id number] 2017-07 Yes 12 ml BID [place] MG/ML ORAL 2-19 , per mom ity of SOLN 21:44: [address] 2017-07 Yes 20mg Take 20 mg [facility] E MAG 2-19 by mouth ity of TRIHYDRATE 21:44: once now. [place] (NEXIUM 48 Medical ORAL) [place] [id number] 2017-07 Yes 12 ml BID [place] MG/ML ORAL 2-19 , per mom ity of SOLN 21:44: [address] 2017-07 Yes 20mg Take 20 mg [facility] E MAG 2-19 by mouth ity of TRIHYDRATE 21:44: once now. [place] (NEXIUM 48 Medical ORAL) Branch [place] [id number] 2017-07 Yes 12 ml BID [place] MG/ML ORAL 2-19 , per mom ity of SOLN 21:44: [address] 2017-07 Yes 20mg Take 20 mg [facility] E MAG 2-19 by mouth ity of TRIHYDRATE 21:44: once now. [place] (NEXIUM 48 Medical ORAL) [place] [id number] 2017-07 Yes 12 ml BID [place] MG/ML ORAL 2-19 , per mom ity of SOLN 21:44: [address]PRAZ[address] 2017-07 Yes 20mg Take 20 mg [facility] E MAG 2-19 by mouth ity of TRIHYDRATE 21:44: once now. [place] (NEXIUM 48 Medical ORAL) [place] [id number] 2017-07 Yes 12 ml BID [place] MG/ML ORAL 2-19 , per mom ity of SOLN 21:44: [address] 2017-07 Yes 20mg Take 20 mg [facility] E MAG 2-19 by mouth ity of TRIHYDRATE 21:44: once now. [place] (NEXIUM 48 Medical ORAL) [place] [id number] 2017-07 Yes 12 ml BID [place] MG/ML ORAL 2-19 , per mom ity of SOLN 21:44: [address] 2017-07 Yes 20mg Take 20 mg [facility] E MAG 2-19 by mouth ity of TRIHYDRATE 21:44: once now. [place] (NEXIUM 48 Medical ORAL) [place] [id number] 2017-07 Yes 12 ml BID [place] MG/ML ORAL 2-19 , per mom ity of SOLN 21:44: [address] 2017-07 Yes 20mg Take 20 mg [facility] E MAG 2-19 by mouth ity of TRIHYDRATE 21:44: once now. [place] (NEXIUM 48 Medical ORAL) [place] [id number] 2017-07 Yes 12 ml BID [place] MG/ML ORAL 2-19 , per mom ity of SOLN 21:44: [place] [address] 2017-07 Yes 12 ml BID [place] MG/ML ORAL 2-19 , per mom ity of SOLN 21:44: [address] 2017-07 Yes 20mg Take 20 mg [facility] E MAG 2-19 by mouth ity of TRIHYDRATE 21:44: once now. [place] (NEXIUM 48 Medical ORAL) [facility] 2017-07 Yes 20mg Take 20 mg [facility] E MAG 2-19 by mouth ity of TRIHYDRATE 21:44: once now. [place] (NEXIUM 48 Medical ORAL) [place] [id number] 2017-07 Yes 12 ml BID [place] MG/ML ORAL 2-19 , per mom ity of SOLN 21:44: [address] 2017-07 Yes 20mg Take 20 mg [facility] E MAG 2-19 by mouth ity of TRIHYDRATE 21:44: once now. [place] (NEXIUM 48 Medical ORAL) [place] [id number] 2017-07 Yes 12 ml BID [place] MG/ML ORAL 2-19 , per mom ity of SOLN 21:44: [address] 2017-07 Yes 20mg Take 20 mg [facility] E MAG 2-19 by mouth ity of TRIHYDRATE 21:44: once now. [place] (NEXIUM 48 Medical ORAL) [place] [id number] 2017-07 Yes 12 ml BID [place] MG/ML ORAL 2-19 , per mom ity of SOLN 21:44: [address] 2017-07 Yes 20mg Take 20 mg [facility] E MAG 2-19 by mouth ity of TRIHYDRATE 21:44: once now. [place] (NEXIUM 48 Medical ORAL) [place] [id number] 2017-07 Yes 12 ml BID [place] MG/ML ORAL 2-19 , per mom ity of SOLN 21:44: [address] 2017-07 Yes 20mg Take 20 mg [facility] E MAG 2-19 by mouth ity of TRIHYDRATE 21:44: once now. [place] (NEXIUM 48 Medical ORAL) [place] [id number] 2017-07 Yes 12 ml BID [place] MG/ML ORAL 2-19 , per mom ity of SOLN 21:44: [address] 2017-07 Yes 20mg Take 20 mg [facility] E MAG 2-19 by mouth ity of TRIHYDRATE 21:44: once now. [place] (NEXIUM 48 Medical ORAL) [place] [id number] 2017-07 Yes 12 ml BID [place] MG/ML ORAL 2-19 , per mom ity of SOLN 21:44: [address] 2017-07 Yes 20mg Take 20 mg [facility] E MAG 2-19 by mouth ity of TRIHYDRATE 21:44: once now. [place] (NEXIUM 48 Medical ORAL) [place] [id number] 2017-07 Yes 12 ml BID [place] MG/ML ORAL 2-19 , per mom ity of SOLN 21:44: [address] 2017-07 Yes 20mg Take 20 mg [facility] E MAG 2-19 by mouth ity of TRIHYDRATE 21:44: once now. [place] (NEXIUM 48 Medical ORAL) [place] [id number] 2017-07 Yes 12 ml BID [place] MG/ML ORAL 2-19 , per mom ity of SOLN 15:44: [address] 2017-07 Yes 20mg Take 20 mg [facility] E MAG 2-19 by mouth ity of TRIHYDRATE 15:44: once now. [place] (NEXIUM 48 Medical ORAL) [place] [id number] 2017-07 Yes 12 ml BID [place] MG/ML ORAL 2-19 , per mom ity of SOLN 15:44: [address] 2017-07 Yes 20mg Take 20 mg [facility] E MAG 2-19 by mouth ity of TRIHYDRATE 15:44: once now. [place] (NEXIUM 48 Medical ORAL) [place] [id number] 2017-07 Yes 12 ml BID [place] MG/ML ORAL 2-19 , per mom ity of SOLN 15:44: [address] 2017-07 Yes 20mg Take 20 mg [facility] E MAG 2-19 by mouth ity of TRIHYDRATE 15:44: once now. [place] (NEXIUM 48 Medical ORAL) [place] [id number] 2017-07 Yes 12 ml BID [place] MG/ML ORAL 2-19 , per mom ity of SOLN 15:44: [address] 2017-07 Yes 20mg Take 20 mg [facility] E MAG 2-19 by mouth ity of TRIHYDRATE 15:44: once now. [place] (NEXIUM 48 Medical ORAL) [place] [id number] 2017-07 Yes 12 ml BID [place] MG/ML ORAL 2-19 , per mom ity of SOLN 15:44: [address] 2017-07 Yes 20mg Take 20 mg [facility] E MAG 2-19 by mouth ity of TRIHYDRATE 15:44: once now. [place] (NEXIUM 48 Medical ORAL) [place] [id number] 2017-07 Yes 12 ml BID [place] MG/ML ORAL 2-19 , per mom ity of SOLN 15:44: [address] Yes 20mg Take 20 mg [facility] E MAG 2-19 by mouth ity of TRIHYDRATE 15:44: once now. [place] (NEXIUM 48 Medical ORAL) [place] [id number] 2017-07 Yes 12 ml BID [place] MG/ML ORAL 2-19 , per mom ity of SOLN 15:44: [address] 2017-07 Yes 20mg Take 20 mg [facility] E MAG 2-19 by mouth ity of TRIHYDRATE 15:44: once now. [place] (NEXIUM 48 Medical ORAL) [place] [id number] 2017-07 Yes 12 ml BID [place] MG/ML ORAL 2-19 , per mom ity of SOLN 15:44: [address] 2017-07 Yes 20mg Take 20 mg [facility] E MAG 2-19 by mouth ity of TRIHYDRATE 15:44: once now. [place] (NEXIUM 48 Medical ORAL) [place] [address] 2017-07 Yes 12 ml BID [place] MG/ML ORAL 2-19 , per mom ity of SOLN 15:44: [address] 2017-07 Yes 20mg Take 20 mg [facility] E MAG 2-19 by mouth ity of TRIHYDRATE 15:44: once now. [place] (NEXIUM 48 Medical ORAL) [place] [id number] 2017-07 Yes 12 ml BID [place] MG/ML ORAL 2-19 , per mom ity of SOLN 15:44: [address] 2017-07 Yes 20mg Take 20 mg [facility] E MAG 2-19 by mouth ity of TRIHYDRATE 15:44: once now. [place] (NEXIUM 48 Medical ORAL) [place] [id number] 2017-07 Yes 12 ml BID [place] MG/ML ORAL 2-19 , per mom ity of SOLN 15:44: [address] Yes 20mg Take 20 mg [facility] E MAG 2-19 by mouth ity of TRIHYDRATE 15:44: once now. [place] (NEXIUM 48 Medical ORAL) [place] [id number] 2017-07 Yes 12 ml BID [place] MG/ML ORAL 2-19 , per mom ity of SOLN 15:44: [address] 2017-07 Yes 20mg Take 20 mg [facility] E MAG 2-19 by mouth ity of TRIHYDRATE 15:44: once now. [place] (NEXIUM 48 Medical ORAL) [place] [id number] 2017-07 Yes 12 ml BID [place] MG/ML ORAL 2-19 , per mom ity of SOLN 15:44: [address] 2017-07 Yes 20mg Take 20 mg [facility] E MAG 2-19 by mouth ity of TRIHYDRATE 15:44: once now. [place] (NEXIUM 48 Medical ORAL) [place] [id number] 2017-07 Yes 12 ml BID [place] MG/ML ORAL 2-19 , per mom ity of SOLN 15:44: [address] 2017-07 Yes 20mg Take 20 mg [facility] E MAG 2-19 by mouth ity of TRIHYDRATE 15:44: once now. [place] (NEXIUM 48 Medical ORAL) [place] [id number] 2017-07 Yes 12 ml BID [place] MG/ML ORAL 2-19 , per mom ity of SOLN 15:44: [address] 2017-07 Yes 20mg Take 20 mg [facility] E MAG 2-19 by mouth ity of TRIHYDRATE 15:44: once now. [place] (NEXIUM 48 Medical ORAL) [place] [id number] 2017-07 Yes 12 ml BID [place] MG/ML ORAL 2-19 , per mom ity of SOLN 15:44: [address] [facility] Yes 20mg Take 20 mg [facility] E MAG 2-19 by mouth ity of TRIHYDRATE 15:44: once now. [place] (NEXIUM 48 Medical ORAL) [place] [id number] 2017-07 Yes 12 ml BID [place] MG/ML ORAL 2-19 , per mom ity of SOLN 15:44: [address] 2017-07 Yes 20mg Take 20 mg [facility] E MAG 2-19 by mouth ity of TRIHYDRATE 15:44: once now. [place] (NEXIUM 48 Medical ORAL) [place] [id number] 2017-07 Yes 12 ml BID [place] MG/ML ORAL 2-19 , per mom ity of SOLN 15:44: [address] Yes 20mg Take 20 mg [facility] E MAG 2-19 by mouth ity of TRIHYDRATE 15:44: once now. [place] (NEXIUM 48 Medical ORAL) Branch [place] [id number] 2017-07 Yes 12 ml BID [place] MG/ML ORAL 2-19 , per mom ity of SOLN 15:44: [address]-07 Yes 20mg Take 20 mg [facility] E MAG 2-19 by mouth ity of TRIHYDRATE 15:44: once now. [place] (NEXIUM 48 Medical ORAL) Branch [place] [address] 2017-07 Yes 12 ml BID [place] MG/ML ORAL 2-19 , per mom ity of SOLN 15:44: [address] 2017-07 Yes 20mg Take 20 mg [facility] E MAG 2-19 by mouth ity of TRIHYDRATE 15:44: once now. [place] (NEXIUM 48 Medical ORAL) Branch [place] [address] 2017-07 Yes 12 ml BID [place] MG/ML ORAL 2-19 , per mom ity of SOLN 15:44: [address] 2017-07 Yes 20mg Take 20 mg [facility] E MAG 2-19 by mouth ity of TRIHYDRATE 15:44: once now. [place] (NEXIUM 48 Medical ORAL) Branch [place] [address] 2017-07 Yes 12 ml BID [place] MG/ML ORAL 2-19 , per mom ity of SOLN 15:44: [address] 2017-07 Yes 20mg Take 20 mg [facility] E MAG 2-19 by mouth ity of TRIHYDRATE 15:44: once now. [place] (NEXIUM 48 Medical ORAL) Branch [place] [address] 2017-07 Yes 12 ml BID [place] MG/ML ORAL 2-19 , per mom ity of SOLN 15:44: [address] Yes 20mg Take 20 mg [...] for ity of N NASAL 19:32: migraines [address] Yes Apply to [place] ne 0.1% in 8-21 affected ity o f aquaphor 19:32: area(s). [place] ([address] ) ointment Branch DIASTAT Yes 10mg as Univers ACUDIAL 8-21 needed for ity of 5-7.5-10 MG 19:32: seizure [place] as RECTAL KIT 05 lasting Medica l greater Branch than 5 min IMITREX 5 Yes as needed Uni vers MG/ACTUATIO 8-21 for ity of N NASAL 19:32: migraines [address] Yes Apply to [place] ne 0.1% in 8-21 affected ity o f aquaphor 19:32: area(s). [place] ([address] ) ointment Branch DIASTAT Yes 10mg as Univers ACUDIAL 8-21 needed for ity of 5-7.5-10 MG 19:32: seizure [place] RECTAL KIT 05 lasting Medica l greater Branch than 5 min IMITREX 5 Yes as needed Uni vers MG/ACTUATIO 8-21 for ity of N NASAL 19:32: migraines [address] Yes Apply to Un [place] ne 0.1% in 8-21 affected ity o f aquaphor 19:32: area(s). [place] ([address] ) ointment Branch DIASTAT Yes 10mg as Univers ACUDIAL 8-21 needed for ity of 5-7.5-10 MG 19:32: seizure [place] RECTAL KIT 05 lasting Medica l greater Branch than 5 min IMITREX 5 Yes as needed Uni vers MG/ACTUATIO 8-21 for ity of N NASAL 19:32: migraines [address] Yes Apply to [place] ne 0.1% in 8-21 affected ity o f aquaphor 19:32: area(s). [place] ([address] ) ointment Branch DIASTAT Yes 10mg as Univers ACUDIAL 8-21 needed for ity of 5-7.5-10 MG 19:32: seizure [place] RECTAL KIT 05 lasting Medica l greater Branch than 5 min IMITREX 5 Yes as needed Uni vers MG/ACTUATIO 8-21 for ity of N NASAL 19:32: migraines [address] Yes Apply to [place] ne 0.1% in 8-21 affected ity o f aquaphor 19:32: area(s). [place] [facility] [address] [place] [address] ) ointment Branch DIASTAT Yes 10mg as Univers ACUDIAL 8-21 needed for ity of 5-7.5-10 MG 19:32: seizure [place] RECTAL KIT 05 lasting Medica l greater Branch than 5 min IMITREX 5 Yes as needed Uni vers MG/ACTUATIO 8-21 for ity of N NASAL 19:32: migraines [address] Yes Apply to [place] ne 0.1% in 8- affected ity o f aquaphor 19:32: area(s). [place] (COMPOUNDED [address] [place] [address] ) ointment Branch DIASTAT Yes 10mg as Univers ACUDIAL 8-21 needed for ity of 5-7.5-10 MG 19:32: seizure [place] RECTAL KIT 05 lasting Medica l greater Branch than 5 min IMITREX 5 Yes as needed Uni vers MG/ACTUATIO 8-21 for ity of N NASAL 19:32: migraines [address] Yes Apply to [place] ne [...] for ity of N NASAL 19:32: migraines [address] 2018-0 Yes Apply to [place] ne 0.1% [...] for ity of N NASAL 19:32: migraines [address] IMITREX 5 Yes as needed Uni vers MG/ACTUATIO 8-21 for ity of N NASAL 19:32: migraines [address] Yes Apply to [place] ne [...] for ity of N NASAL 19:32: migraines [address] Yes Apply to [place] ne 0.1% in 8-21 affected ity o f aquaphor 19:32: area(s). [place] (COMPOUNDED 05 Medical ) ointment Branch [facility] Yes Apply to [place] ne [...] for ity of N NASAL 19:32: migraines [address] Yes Apply to [place] ne 0.1% in 8-21 affected ity o f aquaphor 19:32: area(s). [place] ([address] ) ointment Branch DIASTAT Yes 10mg as [facility] ACUDIAL 8-21 needed for ity of 5-7.5-10 MG 19:32: seizure [place] as RECTAL KIT 05 lasting Medica l greater Branch than 5 min IMITREX 5 Yes as needed Uni vers MG/ACTUATIO 8-21 for ity of N NASAL 19:32: migraines [address] Yes Apply to [place] 0.1% in 8-21 affected ity o f aquaphor 19:32: area(s). [place] ([address] ) ointment Branch DIASTAT Yes 10mg as Univers ACUDIAL 8-21 needed for ity of 5-7.5-10 MG 19:32: seizure [place] as RECTAL KIT 05 lasting Medica l greater Branch than 5 min IMITREX 5 Yes as needed Uni vers MG/ACTUATIO 8-21 for ity of N NASAL 19:32: migraines [address] Yes Apply to [place] 0.1% in 8-21 affected ity o f aquaphor 19:32: area(s). [place] (COMPOUNDED [address] [place] [address] ) ointment Branch DIASTAT Yes 10mg as Univers ACUDIAL 8-21 needed for ity of 5-7.5-10 MG 19:32: seizure [place] as RECTAL KIT 05 lasting Medica l greater Branch than 5 min IMITREX 5 Yes as needed Uni vers MG/ACTUATIO 8-21 for ity of N NASAL 19:32: migraines [address] Yes Apply to Un [place] 0.1% in 8-21 affected ity o f aquaphor 19:32: area(s). [place] (COMPOUNDED [address] [place] [address] ) ointment Branch DIASTAT 2018-0 Yes 10mg as Univers ACUDIAL 8-21 needed for ity of 5-7.5-10 MG 19:32: seizure [place] as RECTAL KIT 05 lasting Medica l greater Branch than 5 min IMITREX 5 Yes as needed Uni vers MG/ACTUATIO 8-21 for ity of N NASAL 19:32: migraines [address] Yes Apply to [place] [...] for ity of N NASAL 19:32: migraines [address] Yes Apply to [place] 0.1% in 8-21 affected ity o f aquaphor 19:32: area(s). [place] ([facility] Medical ) ointment [place] DIASTAT Yes 10mg as Univers ACUDIAL 8-21 needed for ity of 5-7.5-10 MG 19:32: seizure [place]ales as RECTAL KIT 05 lasting Medica l greater Branch than 5 min IMITREX 5 0 Yes as needed Uni vers MG/ACTUATIO 8-21 for ity of N NASAL 19:32: migraines [address] Yes Apply to [place] [...] for ity of N NASAL 19:32: migraines [address] Yes Apply to [place] [...] for ity of N NASAL 19:32: migraines [place] [address] Medical [facility] Yes Apply to Un [place] [...] for ity of N NASAL 19:32: migraines [place] [address] Medical Branch DIASTAT Yes 10mg as Univers ACUDIAL 8-21 needed for ity of 5-7.5-10 MG 19:32: seizure [place] as RECTAL KIT 05 lasting Medica l greater Branch than 5 min IMITREX 5 Yes as needed Uni vers MG/ACTUATIO 8-21 for ity of N NASAL 19:32: migraines [address] Yes Apply to [place] 0.1% in 03-08 affected ity o f aquaphor 19:32: area(s). [place] (COMPOUNDED 05 Medical ) ointment Branch [facility] Yes Apply to [place] [...] for ity of N NASAL 19:32: migraines [address] Yes Apply to [place] 0.1% in 8-21 affected ity o f aquaphor 19:32: area(s). [place] (COMPOUNDED [address] [place] [address] ) ointment Branch DIASTAT Yes 10mg as Univers ACUDIAL 8-21 needed for ity of 5-7.5-10 MG 19:32: seizure [place] as RECTAL KIT 05 lasting Medica l greater Branch than 5 min IMITREX 5 Yes as needed Uni vers MG/ACTUATIO 8-21 for ity of N NASAL 19:32: migraines [address] Yes Apply to U nivers ne 0.1% in 8-21 affected ity o f aquaphor 19:32: area(s). [place] [facility] [address] [place] [address] ) ointment Branch DIASTAT Yes 10mg as Univers ACUDIAL 8-21 needed for ity of 5-7.5-10 MG 19:32: seizure [place] as RECTAL KIT 05 lasting Medica l greater Branch than 5 min IMITREX 5 Yes as needed Uni vers MG/ACTUATIO 8-21 for ity of N NASAL 19:32: migraines [address] Yes Apply to [place] 0.1% in 8-21 affected ity o f aquaphor 19:32: area(s). [place] (COMPOUNDED [address] [place] [address] ) ointment Branch DIASTAT Yes 10mg as Univers ACUDIAL 8-21 needed for ity of 5-7.5-10 MG 19:32: seizure [place] as RECTAL KIT 05 lasting Medica l greater Branch than 5 min IMITREX 5 Yes as needed Uni vers MG/ACTUATIO 8-21 for ity of N NASAL 19:32: migraines [address] Yes Apply to [place] [...] for ity of N NASAL 19:32: migraines [address] Yes Apply to [place] 0.1% in 8- affected ity o f aquaphor 19:32: area(s). [place] [facility] [address] [place] [address] ) ointment Branch DIASTAT Yes 10mg as Univers ACUDIAL 8-21 needed for ity of 5-7.5-10 MG 19:32: seizure [place] as RECTAL KIT 05 lasting Medica l greater Branch than 5 min IMITREX 5 Yes as needed Uni vers MG/ACTUATIO 8-21 for ity of N NASAL 19:32: migraines [address] Yes Apply to [place] 0.1% in 8- affected ity o f aquaphor 19:32: area(s). [place] (COMPOUNDED [address] [place] [address] ) ointment Branch DIASTAT Yes 10mg as Univers ACUDIAL 8-21 needed for ity of 5-7.5-10 MG 14:32: seizure [place] as RECTAL KIT 05 lasting Medica l greater Branch than 5 min IMITREX 5 Yes as needed Uni vers MG/ACTUATIO 8-21 for ity of N NASAL 14:32: migraines [address] Yes Apply to [place] 0.1% in 8-21 affected ity o f aquaphor 14:32: area(s). [place] ([facility] Medical ) ointment Branch DIASTAT Yes 10mg as Univers ACUDIAL 8-21 needed for ity of 5-7.5-10 MG 14:32: seizure [place] as RECTAL KIT 05 lasting Medica l greater Branch than 5 min IMITREX 5 Yes as needed Uni vers MG/ACTUATIO 8-21 for ity of N NASAL 14:32: migraines [address] Yes Apply to [place] 0.1% in 8-21 affected ity o f aquaphor 14:32: area(s). [place] ([facility] Medical ) ointment Branch DIASTAT Yes 10mg as Univers ACUDIAL 8-21 needed for ity of 5-7.5-10 MG 14:32: seizure [place] as RECTAL KIT 05 lasting Medica l greater Branch than 5 min IMITREX 5 Yes as needed Uni vers MG/ACTUATIO 8-21 for ity of N NASAL 14:32: migraines [address] Yes Apply to [place] 0.1% in 8- affected ity o f aquaphor 14:32: area(s). [place] (COMPOUNDED [address] [place] [address] ) ointment Branch DIASTAT Yes 10mg as Univers ACUDIAL 8-21 needed for ity of 5-7.5-10 MG 14:32: seizure [place] as RECTAL KIT 05 lasting Medica l greater Branch than 5 min IMITREX 5 Yes as needed Uni vers MG/ACTUATIO 8-21 for ity of N NASAL 14:32: migraines [address] Yes Apply to [place] 0.1% in 03-08 affected ity o f aquaphor 14:32: area(s). [place] ([facility] Medical ) ointment Branch DIASTAT Yes 10mg as Univers ACUDIAL 8-21 needed for ity of 5-7.5-10 MG 14:32: seizure [place] as RECTAL KIT 05 lasting Medica l greater Branch than 5 min IMITREX 5 Yes as needed Uni vers MG/ACTUATIO 8-21 for ity of N NASAL 14:32: migraines [address] Yes Apply to [place] 0.1% in 8- affected ity o f aquaphor 14:32: area(s). [place] ([facility] Medical ) ointment Branch DIASTAT Yes 10mg as Univers ACUDIAL 8-21 needed for ity of 5-7.5-10 MG 14:32: seizure [place]ales as RECTAL KIT 05 lasting Medica l greater Branch than 5 min IMITREX 5 Yes as needed Uni vers MG/ACTUATIO 8-21 for ity of N NASAL 14:32: migraines [address] Yes Apply to [place] 0.1% in 8-21 affected ity o f aquaphor 14:32: area(s). [place] (COMPOUNDED [address] [place] [address] ) ointment Branch DIASTAT Yes 10mg as Univers ACUDIAL 8-21 needed for ity of 5-7.5-10 MG 14:32: seizure [place] as RECTAL KIT 05 lasting Medica l greater Branch than 5 min IMITREX 5 0 Yes as needed Uni vers MG/ACTUATIO 8-21 for ity of N NASAL 14:32: migraines [address] Yes Apply to [place] 0.1% in 8-21 affected ity o f aquaphor 14:32: area(s). [place] (COMPOUNDED [address] [place] [address] ) ointment Branch DIASTAT Yes 10mg as Univers ACUDIAL 8-21 needed for ity of 5-7.5-10 MG 14:32: seizure [place] as RECTAL KIT 05 lasting Medica l greater Branch than 5 min IMITREX 5 0 Yes as needed Uni vers MG/ACTUATIO 8-21 for ity of N NASAL 14:32: migraines [address] Yes Apply to [place] 0.1% in 8-21 affected ity o f aquaphor 14:32: area(s). [place] ([facility] Medical ) ointment Branch DIASTAT Yes 10mg as Univers ACUDIAL 8-21 needed for ity of 5-7.5-10 MG 14:32: seizure Morales as RECTAL KIT 05 lasting Medica l greater Branch than 5 min IMITREX 5 0 Yes as needed Uni vers MG/ACTUATIO 8-21 for ity of N NASAL 14:32: migraines [address] Yes Apply to [place] 0.1% in 8-21 affected ity o f aquaphor 14:32: area(s). [place] ([facility] Medical ) ointment Branch DIASTAT Yes 10mg as Univers ACUDIAL 8-21 needed for ity of 5-7.5-10 MG 14:32: seizure [place] as RECTAL KIT 05 lasting Medica l greater Branch than 5 min IMITREX 5 Yes as needed Uni vers MG/ACTUATIO 8-21 for ity of N NASAL 14:32: migraines [address] Yes Apply to [place] 0.1% in 8-21 affected ity o f aquaphor 14:32: area(s). [place] [facility] [address] [place] [address] ) ointment Branch DIASTAT Yes 10mg as Univers ACUDIAL 8-21 needed for ity of 5-7.5-10 MG 14:32: seizure Morales as RECTAL KIT 05 lasting Medica l greater Branch than 5 min IMITREX 5 Yes as needed Uni vers MG/ACTUATIO 8-21 for ity of N NASAL 14:32: migraines [address] Yes Apply to [place] 0.1% in 8-21 affected ity o f aquaphor 14:32: area(s). [place] [facility] [address] [place] [address] ) ointment [place] DIASTAT Yes 10mg as Univers ACUDIAL 8-21 needed for ity of 5-7.5-10 MG 14:32: seizure Morales as RECTAL KIT 05 lasting Medica l greater Branch than 5 min IMITREX 5 Yes as needed Uni vers MG/ACTUATIO 8-21 for ity of N NASAL 14:32: migraines [address] Yes Apply to [place] 0.1% in 8-21 affected ity o f aquaphor 14:32: area(s). [place] ([facility] Medical ) ointment Branch DIASTAT Yes 10mg as Univers ACUDIAL 8-21 needed for ity of 5-7.5-10 MG 14:32: seizure [place] as RECTAL KIT 05 lasting Medica l greater Branch than 5 min IMITREX 5 0 Yes as needed Uni vers MG/ACTUATIO 8-21 for ity of N NASAL 14:32: migraines [address] Yes Apply to [place] 0.1% in 8-21 affected ity o f aquaphor 14:32: area(s). [place] ([facility] Medical ) ointment Branch DIASTAT Yes 10mg as Univers ACUDIAL 8-21 needed for ity of 5-7.5-10 MG 14:32: seizure [place]ales as RECTAL KIT 05 lasting Medica l greater Branch than 5 min IMITREX 5 Yes as needed Uni vers MG/ACTUATIO 8-21 for ity of N NASAL 14:32: migraines [address] Yes Apply to [place] 0.1% in 8- affected ity o f aquaphor 14:32: area(s). [place] ([facility] Medical ) ointment Branch DIASTAT Yes 10mg as Univers ACUDIAL 8-21 needed for ity of 5-7.5-10 MG 14:32: seizure [place] as RECTAL KIT 05 lasting Medica l greater Branch than 5 min IMITREX 5 Yes as needed Uni vers MG/ACTUATIO 8-21 for ity of N NASAL 14:32: migraines [address] Yes Apply to [place] 0.1% in 8 affected ity o f aquaphor 14:32: area(s). [place] ([facility] Medical ) ointment Branch DIASTAT Yes 10mg as Univers ACUDIAL 8-21 needed for ity of 5-7.5-10 MG 14:32: seizure [place] as RECTAL KIT 05 lasting Medica l greater Branch than 5 min IMITREX 5 Yes as needed Uni vers MG/ACTUATIO 8-21 for ity of N NASAL 14:32: migraines [address] Yes Apply to [place] 0.1% in 8- affected ity o f aquaphor 14:32: area(s). [place] ([facility] Medical ) ointment Branch DIASTAT Yes 10mg as Univers ACUDIAL 8-21 needed for ity of 5-7.5-10 MG 14:32: seizure Morales as RECTAL KIT 05 lasting Medica l greater Branch than 5 min IMITREX 5 0 Yes as needed Uni vers MG/ACTUATIO 8-21 for ity of N NASAL 14:[facility] [address] [place] [address] Yes Apply to Un [place] 0.1% in 8-21 affected ity o f aquaphor 14:32: area(s). [place] ([facility] Medical ) ointment Branch DIASTAT Yes 10mg as Univers ACUDIAL 8-21 needed for ity of 5-7.5-10 MG 14:32: seizure Morales as RECTAL KIT 05 lasting Medica l greater Branch than 5 min IMITREX 5 0 Yes as needed Uni vers MG/ACTUATIO 8-21 for ity of N NASAL 14:32: [facility] [address] [place] [address] Yes Apply to [place] 0.1% in 8-21 affected ity o f aquaphor 14:32: area(s). [place] ([facility] Medical ) ointment Branch DIASTAT Yes 10mg as Univers ACUDIAL 8-21 needed for ity of 5-7.5-10 MG 14:32: seizure Morales as RECTAL KIT 05 lasting Medica l greater Branch than 5 min IMITREX 5 0 Yes as needed Uni vers MG/ACTUATIO 8-21 for ity of N NASAL 14:32: migraines [address] Yes Apply to [place] 0.1% in 8-21 affected ity o f aquaphor 14:32: area(s). [place] ([facility] Medical ) ointment Branch DIASTAT Yes 10mg as Univers ACUDIAL 8-21 needed for ity of 5-7.5-10 MG 14:32: seizure Morales as RECTAL KIT 05 lasting Medica l greater Branch than 5 min IMITREX 5 0 Yes as needed Uni vers MG/ACTUATIO 8-21 for ity of N NASAL 14:32: [facility] [address] [place] [address] Yes Apply to [place] 0.1% in 8-21 affected ity o f aquaphor 14:32: area(s). [place] (COMPOUNDED 05 Medical ) ointment Branch DIASTAT Yes 10mg as Univers ACUDIAL 8-21 needed for ity of 5-7.5-10 MG 14:32: seizure Morales as RECTAL KIT 05 lasting Medica l greater Branch than 5 min IMITREX 5 Yes as needed Uni vers MG/ACTUATIO 8-21 for ity of N NASAL 14:32: migraines [address] Yes Apply to [place] 0.1% in 8-21 affected ity o f aquaphor 14:32: area(s). [place] ([address] ) ointment Branch DIASTAT Yes 10mg as Univers ACUDIAL 8 needed for ity of 5-7.5-10 MG 14:32: seizure Morales as RECTAL KIT 05 lasting Medica l greater Branch than 5 min IMITREX 5 Yes as needed Uni vers MG/ACTUATIO 8-21 for ity of N NASAL 14:32: migraines [address] Yes Apply to [place] 0.1% in 8- affected ity o f aquaphor 14:32: area(s). [place] [facility] [address] [place] [address] ) ointment Branch IMITREX 5 Yes as needed Uni vers MG/ACTUATIO 8-21 for ity of N NASAL 14:32: migraines [address] IMITREX 5 Yes as needed Uni vers MG/ACTUATIO 8-21 for ity of N NASAL 14:32: migraines [address] IMITREX 5 Yes as needed Uni vers MG/ACTUATIO 8-21 for ity of N NASAL 14:32: migraines [address] IMITREX 5 Yes as needed Uni vers MG/ACTUATIO 8-21 for ity of N NASAL 14:32: migraines [address] IMITREX 5 Yes as needed Uni vers MG/ACTUATIO 8-21 for ity of N NASAL 14:32: migraines [address] IMITREX 5 Yes as needed Uni vers MG/ACTUATIO 8-21 for ity of N NASAL 14:32: migraines [address] IMITREX 5 Yes as needed Uni vers MG/ACTUATIO 8-21 for ity of N NASAL 14:32: migraines [place] [address] Medical Branch IMITREX 5 2018-0 Yes as needed Uni vers MG/ACTUATIO 8-21 for ity of N NASAL 14:32: migraines [place] [address] Medical Branch IMITREX 5 2018-0 Yes as needed Uni vers MG/ACTUATIO 8-21 for ity of N NASAL 14:32: migraines [address] Branch IMITREX 5 2018-0 Yes as needed Uni vers MG/ACTUATIO 8-21 for ity of N NASAL 14:32: migraines [place] [address] Medical Branch IMITREX 5 2017-0 Yes as needed Uni vers MG/ACTUATIO 8-21 for ity of N NASAL 14:32: migraines [address] Branch IMITREX 5 2017-0 Yes as needed Uni vers MG/ACTUATIO 8-21 for ity of N NASAL 14:32: migraines [place] [address] Medical Branch IMITREX 5 2017-0 Yes as needed Uni vers MG/ACTUATIO 8-21 for ity of N NASAL 14:32: migraines [place] [address] Medical Branch IMITREX 5 2017-0 Yes as needed Uni vers MG/ACTUATIO 8-21 for ity of N NASAL 14:32: migraines [place] [address] Medical Branch IMITREX 5 2017-0 Yes as needed Uni vers MG/ACTUATIO 8-21 for ity of N NASAL 14:32: migraines [place] [address] Medical Branch IMITREX 5 2017-0 Yes as needed Uni vers MG/ACTUATIO 8-21 for ity of N NASAL 14:32: migraines [place] [address] Medical Branch IMITREX 5 2018-0 Yes as needed Uni vers MG/ACTUATIO 8-21 for ity of N NASAL 14:32: migraines [place] [address] Medical Branch IMITREX 5 2018-0 Yes as needed Uni vers MG/ACTUATIO 8-21 for ity of N NASAL 14:32: migraines [place] [address] Medical Branch IMITREX 5 2018-0 Yes as needed Uni vers MG/ACTUATIO 8-21 for ity of N NASAL 14:32: migraines [place] [address] Medical Branch IMITREX 5 2018-0 Yes as needed Uni vers MG/ACTUATIO 8-21 for ity of N NASAL 14:32: migraines [place] [address] Medical Branch IMITREX 5 2018-0 Yes as needed Uni vers MG/ACTUATIO 8-21 for ity of N NASAL 14:32: migraines [place] [address] Medical Branch IMITREX 5 2018-0 Yes as needed Uni vers MG/ACTUATIO 8-21 for ity of N NASAL 14:32: migraines [place] [address] Medical Branch IMITREX 5 2018-0 Yes as needed Uni vers MG/ACTUATIO 8-21 for ity of N NASAL 14:32: migraines [place] [address] Medical Branch IMITREX 5 2018-0 Yes as needed Uni vers MG/ACTUATIO 8-21 for ity of N NASAL 14:32: migraines [place] [address] Medical Branch IMITREX 5 2017-0 Yes as needed Uni vers MG/ACTUATIO 8-21 for ity of N NASAL 14:32: migraines [place] [address] Medical Branch IMITREX 5 2017-0 Yes as needed Uni vers MG/ACTUATIO 8-21 for ity of N NASAL 14:32: migraines [place] [address] Medical Branch IMITREX 5 2017-0 Yes as needed Uni vers MG/ACTUATIO 8-21 for ity of N NASAL 14:32: migraines [place] [address] Medical Branch IMITREX 5 2017-0 Yes as needed Uni vers MG/ACTUATIO 8-21 for ity of N NASAL 14:32: migraines [address] Branch IMITREX 5 2017-0 Yes as needed Uni vers MG/ACTUATIO 8-21 for ity of N NASAL 14:32: migraines [place] [address] Medical Branch IMITREX 5 2018-0 Yes as needed Uni vers MG/ACTUATIO 8-21 for ity of N NASAL 14:32: migraines [place] [address] Medical Branch IMITREX 5 2018-0 Yes as needed Uni vers MG/ACTUATIO 8-21 for ity of N NASAL 14:32: migraines [place] [address] Medical Branch IMITREX 5 2018-0 Yes as needed Uni vers MG/ACTUATIO 8-21 for ity of N NASAL 14:32: migraines [place] [address] Medical Branch IMITREX 5 2018-0 Yes as needed Uni vers MG/ACTUATIO 8-21 for ity of N NASAL 14:32: migraines [address] IMITREX 5 Yes as needed Uni vers MG/ACTUATIO 8-21 for ity of N NASAL 14:32: migraines [place] SPRY 05 Medical Branch IMITREX 5 Yes as needed Uni vers MG/ACTUATIO 8-21 for ity of N NASAL 14:32: migraines [place] SPRY 05 Medical Branch IMITREX 5 Yes as needed Uni vers MG/ACTUATIO 8-21 for ity of N NASAL 14:32: migraines [place] SPRY 05 Medical Branch IMITREX 5 Yes as needed Uni vers MG/ACTUATIO 8-21 for ity of N NASAL 14:[facility] DIA[facility] Yes 10mg as Univers ACUDIAL 8-21 needed for ity of 5-7.5-10 MG 14:32: seizure Morales as RECTAL KIT 05 lasting Medica l greater Branch than 5 min IMITREX 5 Yes as needed Uni vers MG/ACTUATIO 8-21 for ity of N NASAL 14:32: migraines [place] SPRY 05 Medical Branch triamcinolo Yes Apply to [place] 0.1% in 8-21 affected ity o f aquaphor 14:32: area(s). [place] (COMPOUNDED 05 Medical ) ointment Branch busPIRone 2019- No 15mg Take 1 Unive rs 15 mg 03-08-17 tablet by ity of tablet 00:00: 00:00 mouth 2 [place] 00 :00 (two) Medical times Branch daily for 30 days. ARIPiprazol 2018- No 5mg Take 1 Uni vers e (ABILIFY) 8-08 04-18 tablet by it y of 5 mg [...] 00 daily. Medical Branch fluticasone 2019- No [id number] 1{puff} Inhale 1 Univers (FLOVENT 03-04 07-01 [...] times Branch daily. cloNIDine 2017- 2018- No [id number] .1mg Take 1-2 Univers HCl 6-26 10-15 tablets by ity of (KAPVAY) 00:00: [place] 0[place]1 [place] 00 :00 bedtime. Medical [facility] Branch SERTraline 2017-0 2018- No 100mg Take 1 Uni vers (ZOLOFT) 6-20 10-15 tablet by ity o f 100 mg 00:00: 00:00 mouth [place] tablet 00 :00 daily. Medical Branch amitriptyli 2017-0 Yes 10mg Take 10 mg Univers ne 10 mg 5-22 by mouth. ity of tablet 00:00: [place] [facility] amitriptyli 2017-0 Yes 10mg Take 10 mg Univers ne 10 mg 5-22 by mouth. ity of tablet 00:00: [place] [facility] amitriptyli 2017-0 Yes 10mg Take 10 mg Univers ne 10 mg 5-22 by mouth. ity of tablet 00:00: [place] [facility] amitriptyli 2017-0 Yes 10mg Take 10 mg Univers ne 10 mg 5-22 by mouth. ity of tablet 00:00: [place] [facility] amitriptyli 2017-0 Yes 10mg Take 10 mg Univers ne 10 mg 5-22 by mouth. ity of tablet 00:00: [place] [facility] amitriptyli 2017-0 Yes 10mg Take 10 mg Univers ne 10 mg 5-22 by mouth. ity of tablet 00:00: [place] [facility] amitriptyli 2017-0 Yes 10mg Take 10 mg Univers ne 10 mg 5-22 by mouth. ity of tablet 00:00: [place] [facility] amitriptyli 2017-0 Yes 10mg Take 10 mg Univers ne 10 mg 5-22 by mouth. ity of tablet 00:00: [place] [facility] amitriptyli 2017-0 Yes 10mg Take 10 mg Univers ne 10 mg 5-22 by mouth. ity of tablet 00:00: [place] [facility] amitriptyli 2017-0 Yes 10mg Take 10 mg Univers ne 10 mg 5-22 by mouth. ity of tablet 00:00: [place] [facility] amitriptyli 2017-0 Yes 10mg Take 10 mg Univers ne 10 mg 5-22 by mouth. ity of tablet 00:00: [place] [facility] amitriptyli 2017-0 Yes 10mg Take 10 mg Univers ne 10 mg 5-22 by mouth. ity of tablet 00:00: [place] [facility] amitriptyli 2018-0 Yes 10mg Take 10 mg Univers ne 10 mg 5-22 by mouth. ity of tablet 00:00: [place] [facility] amitriptyli 2018-0 Yes 10mg Take 10 mg Univers ne 10 mg 5-22 by mouth. ity of tablet 00:00: [place] [facility] amitriptyli 2018-0 Yes 10mg Take 10 mg Univers ne 10 mg 5-22 by mouth. ity of tablet 00:00: [place] [facility] amitriptyli 2018-0 Yes 10mg Take 10 mg Univers ne 10 mg 5-22 by mouth. ity of tablet 00:00: [place] [facility] amitriptyli 2018-0 Yes 10mg Take 10 mg Univers ne 10 mg 5-22 by mouth. ity of tablet 00:00: [place] [facility] amitriptyli 2018-0 Yes 10mg Take 10 mg Univers ne 10 mg 5-22 by mouth. ity of tablet 00:00: [place] [facility] amitriptyli 2017-0 Yes 10mg Take 10 mg Univers ne 10 mg 5-22 by mouth. ity of tablet 00:00: [place] [facility] amitriptyli 2018-0 Yes 10mg Take 10 mg Univers ne 10 mg 5-22 by mouth. ity of tablet 00:00: [place] [facility] amitriptyli 2018-0 Yes 10mg Take 10 mg Univers ne 10 mg 5-22 by mouth. ity of tablet 00:00: [place] [facility] amitriptyli 2018-0 Yes 10mg Take 10 mg Univers ne 10 mg 5-22 by mouth. ity of tablet 00:00: [place] [facility] amitriptyli 2018-0 Yes 10mg Take 10 mg Univers ne 10 mg 5-22 by mouth. ity of tablet 00:00: [place] [facility] amitriptyli 2018-0 Yes 10mg Take 10 mg Univers ne 10 mg 5-22 by mouth. ity of tablet 00:00: [place] [facility] amitriptyli 2018-0 Yes 10mg Take 10 mg Univers ne 10 mg 5-22 by mouth. ity of tablet 00:00: [place] [facility] amitriptyli 2018-0 Yes 10mg Take 10 mg Univers ne 10 mg 5-22 by mouth. ity of tablet 00:00: [place] [facility] amitriptyli 2018-0 Yes 10mg Take 10 mg Univers ne 10 mg 5-22 by mouth. ity of tablet 00:00: [place] [facility] amitriptyli 2018-0 Yes 10mg Take 10 mg Univers ne 10 mg 5-22 by mouth. ity of tablet 00:00: [place] [facility] amitriptyli 2018-0 Yes 10mg Take 10 mg Univers ne 10 mg 5-22 by mouth. ity of tablet 00:00: [place] [facility] amitriptyli 2018-0 Yes 10mg Take 10 mg Univers ne 10 mg 5-22 by mouth. ity of tablet 00:00: [place] [facility] amitriptyli 2018-0 Yes 10mg Take 10 mg Univers ne 10 mg 5-22 by mouth. ity of tablet 00:00: [place] [facility] amitriptyli 2018-0 Yes 10mg Take 10 mg Univers ne 10 mg 5-22 by mouth. ity of tablet 00:00: [place] [facility] amitriptyli 2018-0 Yes 10mg Take 10 mg Univers ne 10 mg 5-22 by mouth. ity of tablet 00:00: [place] [facility] amitriptyli 2018-0 Yes 10mg Take 10 mg Univers ne 10 mg 5-22 by mouth. ity of tablet 00:00: [place] [facility] amitriptyli 2018-0 Yes 10mg Take 10 mg Univers ne 10 mg 5-22 by mouth. ity of tablet 00:00: [place] [facility] amitriptyli 2018-0 Yes 10mg Take 10 mg Univers ne 10 mg 5-22 by mouth. ity of tablet 00:00: [place] [facility] amitriptyli 2018-0 Yes 10mg Take 10 mg Univers ne 10 mg 5-22 by mouth. ity of tablet 00:00: [place] [facility] amitriptyli 2018-0 Yes 10mg Take 10 mg Univers ne 10 mg 5-22 by mouth. ity of tablet 00:00: [place] [facility] amitriptyli 2018-0 Yes 10mg Take 10 mg Univers ne 10 mg 5-22 by mouth. ity of tablet 00:00: [place] [facility] amitriptyli 2018-0 Yes 10mg Take 10 mg Univers ne 10 mg 5-22 by mouth. ity of tablet 00:00: [place] [facility] amitriptyli 2018-0 Yes 10mg Take 10 mg Univers ne 10 mg 5-22 by mouth. ity of tablet 00:00: [place] [facility] amitriptyli 2018-0 Yes 10mg Take 10 mg Univers ne 10 mg 5-22 by mouth. ity of tablet 00:00: [place] [facility] amitriptyli 2018-0 Yes 10mg Take 10 mg Univers ne 10 mg 5-22 by mouth. ity of tablet 00:00: [place] [facility] amitriptyli 2018-0 Yes 10mg Take 10 mg Univers ne 10 mg 5-22 by mouth. ity of tablet 00:00: [place] [facility] amitriptyli 2018-0 Yes 10mg Take 10 mg [facility] 10 mg 5-22 by mouth. ity of tablet 00:00: [place] [facility] amitriptyli 2018-0 Yes 10mg Take 10 mg [facility] ne 10 mg 5-22 by mouth. ity of tablet 00:00: [place] [facility] amitriptyli 2018-0 Yes 10mg Take 10 mg [facility] ne 10 mg 5-22 by mouth. ity of tablet 00:00: [place] [facility] amitriptyli 2018-0 Yes 10mg Take 10 mg [facility] ne 10 mg 5-22 by mouth. ity of tablet 00:00: [place] [facility] amitriptyli 2018-0 Yes 10mg Take 10 mg [facility] ne 10 mg 5-22 by mouth. ity of tablet 00:00: [place] [facility] amitriptyli 2018-0 2023- No 10mg Take 10 mg [facility] ne 10 mg 5-22 08-18 by mouth. ity o f tablet 00:00: 00:00 [place] 00 :00 Medical [place] amitriptyli 2018-0 2023- No 10mg Take 10 mg [facility] ne 10 mg 5-22 08-18 by mouth. ity o f tablet 00:00: 00:00 [place] 00 :00 [facility] amitriptyli 2018-0 2023- No 10mg Take 10 mg [facility] ne 10 mg 5-22 08-18 by mouth. ity o f tablet 00:00: 00:00 [place] 00 :00 [facility] amitriptyli 2022- No 10mg Take 10 mg [facility] ne 10 mg 12-07 by mouth. ity o f tablet 00:00: 00:00 [place] 00 :00 [facility] amphetamine 2018- No [...] mg by ity of tablet 00:00: mouth. [address] risperiDONE 2014-07 Yes .5mg Take 0.5 [place] 0.5 mg 0-15 mg by ity of tablet 00:00: mouth. [address] risperiDONE 2014-07 Yes .5mg Take 0.5 [place] 0.5 mg 0-15 mg by ity of tablet 00:00: mouth. [address] risperiDONE 2014- Yes .5mg Take 0.5 [place] 0.5 mg 0-15 mg by ity of tablet 00:00: mouth. [address] risperiDONE 2014-07 Yes .5mg Take 0.5 [place] 0.5 mg 0-15 mg by ity of tablet 00:00: mouth. [address] risperiDONE 2014-07 Yes .5mg Take 0.5 [place] 0.5 mg 0-15 mg by ity of tablet 00:00: mouth. [address] risperiDONE 2014-07 Yes .5mg Take 0.5 [place] 0.5 mg 0-15 mg by ity of tablet 00:00: mouth. [address] risperiDONE 2014-07 Yes .5mg Take 0.5 [place] 0.5 mg 0-15 mg by ity of tablet 00:00: mouth. [address] risperiDONE 2014-07 Yes .5mg Take 0.5 [place] 0.5 mg 0-15 mg by ity of tablet 00:00: mouth. [address] risperiDONE 2014-07 Yes .5mg Take 0.5 [place] 0.5 mg 0-15 mg by ity of tablet 00:00: mouth. [address] risperiDONE 2014-07 Yes .5mg Take 0.5 [place] 0.5 mg 0-15 mg by ity of tablet 00:00: mouth. [address] risperiDONE 2014-07 Yes .5mg Take 0.5 [place] 0.5 mg 0-15 mg by ity of tablet 00:00: mouth. [address] risperiDONE 2014-07 Yes .5mg Take 0.5 [place] 0.5 mg 0-15 mg by ity of tablet 00:00: mouth. [address] risperiDONE 2014-07 Yes .5mg Take 0.5 [place] 0.5 mg 0-15 mg by ity of tablet 00:00: mouth. [address] risperiDONE 2014-07 Yes .5mg Take 0.5 [place] 0.5 mg 0-15 mg by ity of tablet 00:00: mouth. [address] risperiDONE 2014-07 Yes .5mg Take 0.5 [place] 0.5 mg 0-15 mg by ity of tablet 00:00: mouth. [address] risperiDONE 2014-07 Yes .5mg Take 0.5 [place] 0.5 mg 0-15 mg by ity of tablet 00:00: mouth. [address] risperiDONE 2014-07 Yes .5mg Take 0.5 [place] 0.5 mg 0-15 mg by ity of tablet 00:00: mouth. [address] risperiDONE 2014-07 Yes .5mg Take 0.5 [place] 0.5 mg 0-15 mg by ity of tablet 00:00: mouth. [address] risperiDONE 2014-07 Yes .5mg Take 0.5 [place] 0.5 mg 0-15 mg by ity of tablet 00:00: mouth. [address] risperiDONE 2014-07 Yes .5mg Take 0.5 [place] 0.5 mg 0-15 mg by ity of tablet 00:00: mouth. [address] risperiDONE 2014-07 Yes .5mg Take 0.5 [place] 0.5 mg 0-15 mg by ity of tablet 00:00: mouth. [address] risperiDONE 2014-07 Yes .5mg Take 0.5 [place] 0.5 mg 0-15 mg by ity of tablet 00:00: mouth. [address] risperiDONE 2014-07 Yes .5mg Take 0.5 [place] 0.5 mg 0-15 mg by ity of tablet 00:00: mouth. [address] risperiDONE 2014-07 Yes .5mg Take 0.5 [place] 0.5 mg 0-15 mg by ity of tablet 00:00: mouth. [address] risperiDONE 2014-07 Yes .5mg Take 0.5 [place] 0.5 mg 0-15 mg by ity of tablet 00:00: mouth. [address] risperiDONE 2014-07 Yes .5mg Take 0.5 [place] 0.5 mg 0-15 mg by ity of tablet 00:00: mouth. [address] risperiDONE 2014-07 Yes .5mg Take 0.5 [place] 0.5 mg 0-15 mg by ity of tablet 00:00: mouth. [address] risperiDONE 2014-07 Yes .5mg Take 0.5 [place] 0.5 mg 0-15 mg by ity of tablet 00:00: mouth. [address] risperiDONE 2014-07 Yes .5mg Take 0.5 [place] 0.5 mg 0-15 mg by ity of tablet 00:00: mouth. [address] risperiDONE 2014-07 Yes .5mg Take 0.5 [place] 0.5 mg 0-15 mg by ity of tablet 00:00: mouth. [address] risperiDONE 2014-07 Yes .5mg Take 0.5 [place] 0.5 mg 0-15 mg by ity of tablet 00:00: mouth. [address] risperiDONE 2014-07 Yes .5mg Take 0.5 [place] 0.5 mg 0-15 mg by ity of tablet 00:00: mouth. [address] risperiDONE 2014-07 Yes .5mg Take 0.5 [place] 0.5 mg 0-15 mg by ity of tablet 00:00: mouth. [address] risperiDONE 2014-07 Yes .5mg Take 0.5 [place] 0.5 mg 0-15 mg by ity of tablet 00:00: mouth. [address] risperiDONE 2014-07 Yes .5mg Take 0.5 [place] 0.5 mg 0-15 mg by ity of tablet 00:00: mouth. [address] risperiDONE 2014-07 Yes .5mg Take 0.5 [place] 0.5 mg 0-15 mg by ity of tablet 00:00: mouth. [address] risperiDONE 2014-07 Yes .5mg Take 0.5 [place] 0.5 mg 0-15 mg by ity of tablet 00:00: mouth. [address] risperiDONE 2014-07 Yes .5mg Take 0.5 [place] 0.5 mg 0-15 mg by ity of tablet 00:00: mouth. [address] risperiDONE 2014-07 Yes .5mg Take 0.5 [place] 0.5 mg 0-15 mg by ity of tablet 00:00: mouth. [address] risperiDONE 2014-07 Yes .5mg Take 0.5 [place] 0.5 mg 0-15 mg by ity of tablet 00:00: mouth. [address] risperiDONE 2014-07 Yes .5mg Take 0.5 [place] 0.5 mg 0-15 mg by ity of tablet 00:00: mouth. [address] risperiDONE 2014-07 Yes .5mg Take 0.5 [place] 0.5 mg 0-15 mg by ity of tablet 00:00: mouth. [address] risperiDONE 2014-07 Yes .5mg Take 0.5 [place] 0.5 mg 0-15 mg by ity of tablet 00:00: mouth. [address] risperiDONE 2014-07 Yes .5mg Take 0.5 [place] 0.5 mg 0-15 mg by ity of tablet 00:00: mouth. [address] risperiDONE 2014-07 Yes .5mg Take 0.5 [place] 0.5 mg 0-15 mg by ity of tablet 00:00: mouth. [address] risperiDONE 2014- Yes .5mg Take 0.5 [place] 0.5 mg 0-15 mg by ity of tablet 00:00: mouth. [address] risperiDONE 2014-07 Yes .5mg Take 0.5 [place] 0.5 mg 0-15 mg by ity of tablet 00:00: mouth. [address] risperiDONE 2014-07 Yes .5mg Take 0.5 [place] 0.5 mg 0-15 mg by ity of tablet 00:00: mouth. [address] risperiDONE 2014-07 Yes .5mg Take 0.5 [place] 0.5 mg 0-15 mg by ity of tablet 00:00: mouth. [address] risperiDONE 2014-07 Yes .5mg Take 0.5 [place] 0.5 mg 0-15 mg by ity of tablet 00:00: mouth. [address] risperiDONE 2014-07 Yes .5mg Take 0.5 [place] 0.5 mg 0-15 mg by ity of tablet 00:00: mouth. [address] risperiDONE 2014-07 Yes .5mg Take 0.5 [place] 0.5 mg 0-15 mg by ity of tablet 00:00: mouth. [address] risperiDONE 2014-07 Yes .5mg Take 0.5 [place] 0.5 mg 0-15 mg by ity of tablet 00:00: mouth. [address] risperiDONE 2014-07 Yes .5mg Take 0.5 [place] 0.5 mg 0-15 mg by ity of tablet 00:00: mouth. [address] risperiDONE 2014-07 Yes .5mg Take 0.5 [place] 0.5 mg 0-15 mg by ity of tablet 00:00: mouth. [address] risperiDONE 2014-07 Yes .5mg Take 0.5 [place] 0.5 mg 0-15 mg by ity of tablet 00:00: mouth. [address] risperiDONE 2014-07 Yes .5mg Take 0.5 [place] 0.5 mg 0-15 mg by ity of tablet 00:00: mouth. [address] risperiDONE 2014-07 Yes .5mg Take 0.5 [place] 0.5 mg 0-15 mg by ity of tablet 00:00: mouth. [address] risperiDONE 2014- Yes .5mg Take 0.5 [place] 0.5 mg 0-15 mg by ity of tablet 00:00: mouth. [place] [facility] risperiDONE 2014- Yes .5mg Take 0.5 [place] 0.5 mg 0-15 mg by ity of tablet 00:00: mouth. [place] [facility] risperiDONE 2014-07 Yes .5mg Take 0.5 [place] 0.5 mg 0-15 mg by ity of tablet 00:00: mouth. [address] risperiDONE 2014-07 Yes .5mg Take 0.5 [place] 0.5 mg 0-15 mg by ity of tablet 00:00: mouth. [address] risperiDONE 2014-07 Yes .5mg Take 0.5 [place] 0.5 mg 0-15 mg by ity of tablet 00:00: mouth. [address] risperiDONE 2014-07 Yes .5mg Take 0.5 [place] 0.5 mg 0-15 mg by ity of tablet 00:00: mouth. [address] risperiDONE 2014-07 Yes .5mg Take 0.5 [place] 0.5 mg 0-15 mg by ity of tablet 00:00: mouth. [address] risperiDONE 2014-07 Yes .5mg Take 0.5 [place] 0.5 mg 0-15 mg by ity of tablet 00:00: mouth. [address] risperiDONE 2014-07 Yes .5mg Take 0.5 [place] 0.5 mg 0-15 mg by ity of tablet 00:00: mouth. [address] risperiDONE 2014-07 Yes .5mg Take 0.5 [place] 0.5 mg 0-15 mg by ity of tablet 00:00: mouth. [address] risperiDONE 2014- Yes .5mg Take 0.5 [place] 0.5 mg 0-15 mg by ity of tablet 00:00: mouth. [address] risperiDONE 2014-07 Yes .5mg Take 0.5 [place] 0.5 mg 0-15 mg by ity of tablet 00:00: mouth. [address] risperiDONE 2014-07 Yes .5mg Take 0.5 [place] 0.5 mg 0-15 mg by ity of tablet 00:00: mouth. [address] risperiDONE 2014-07 Yes .5mg Take 0.5 [place] 0.5 mg 0-15 mg by ity of tablet 00:00: mouth. [address] risperiDONE 2014-07 Yes .5mg Take 0.5 [place] 0.5 mg 0-15 mg by ity of tablet 00:00: mouth. [address] risperiDONE 2014-07 Yes .5mg Take 0.5 [place] 0.5 mg 0-15 mg by ity of tablet 00:00: mouth. [address] risperiDONE 2014-07 Yes .5mg Take 0.5 [place] 0.5 mg 0-15 mg by ity of tablet 00:00: mouth. [address] risperiDONE 2014-07 Yes .5mg Take 0.5 [place] 0.5 mg 0-15 mg by ity of tablet 00:00: mouth. [address] risperiDONE 2014-07 Yes .5mg Take 0.5 [place] 0.5 mg 0-15 mg by ity of tablet 00:00: mouth. [address] risperiDONE 2014-07 Yes .5mg Take 0.5 [place] 0.5 mg 0-15 mg by ity of tablet 00:00: mouth. [address] risperiDONE 2014-07 Yes .5mg Take 0.5 [place] 0.5 mg 0-15 mg by ity of tablet 00:00: mouth. [address] risperiDONE 2014-07 Yes .5mg Take 0.5 [place] 0.5 mg 0-15 mg by ity of tablet 00:00: mouth. [address] risperiDONE 2014-07 Yes .5mg Take 0.5 [place] 0.5 mg 0-15 mg by ity of tablet 00:00: mouth. [address] risperiDONE 2014-07 Yes .5mg Take 0.5 [place] 0.5 mg 0-15 mg by ity of tablet 00:00: mouth. [address] risperiDONE 2014-07 Yes .5mg Take 0.5 [place] 0.5 mg 0-15 mg by ity of tablet 00:00: mouth. [address] risperiDONE 2014-07 Yes .5mg Take 0.5 [place] 0.5 mg 0-15 mg by ity of tablet 00:00: mouth. [place] 00 [facility] risperiDONE 2015-1 Yes .5mg Take 0.5 [place] 0.5 mg 0-15 mg by ity of tablet 00:00: mouth. [place] [facility] risperiDONE 2015-1 Yes .5mg Take 0.5 [place] 0.5 mg 0-15 mg by ity of tablet 00:00: mouth. [place] [facility] risperiDONE 2015-1 Yes .5mg Take 0.5 [place] 0.5 mg 0-15 mg by ity of tablet 00:00: mouth. [place] [facility] risperiDONE 2015-1 Yes .5mg Take 1 [facility] ers 0.5 mg 0-15 tablet by ity of tablet 00:00: mouth in [place] [address] the Medical morning Branch and 1 tablet in the evening. risperiDONE 2014- Yes .5mg Take 1 [facility] ers 0.5 mg 0-15 tablet by ity of tablet 00:00: mouth in [place] [address] the Medical morning Branch and 1 tablet in the evening. risperiDONE 2014- Yes .5mg Take 1 [facility] ers 0.5 mg 0-15 tablet by ity of tablet 00:00: mouth in [place] [address] the Medical morning [place] and 1 tablet in the evening. risperiDONE 2014- Yes .5mg Take 1 [facility] ers 0.5 mg 0-15 tablet by ity of tablet 00:00: mouth in [place] [address] the Medical morning Branch and 1 tablet in the evening. risperiDONE 2014- Yes .5mg Take 1 [facility] ers 0.5 mg 0-15 tablet by ity of tablet 00:00: mouth in [place] [address] [facility] morning [place] and 1 tablet in the evening. risperiDONE 2014- Yes .5mg Take 1 [facility] ers 0.5 mg 0-15 tablet by ity of tablet 00:00: mouth in [place] [address] the Medical morning Branch and 1 tablet in the evening. risperiDONE 2014- Yes .5mg Take 1 [facility] ers 0.5 mg 0-15 tablet by ity of tablet 00:00: mouth in [place] [address] the Medical morning Branch and 1 tablet in the evening. risperiDONE 2014-1 Yes .5mg Take 1 [facility] ers 0.5 mg 0-15 tablet by ity of tablet 00:00: mouth in [place] [address] the Medical morning [place] and 1 tablet in the evening. risperiDONE 2014- Yes .5mg Take 1 [facility] ers 0.5 mg 0-15 tablet by ity of tablet 00:00: mouth in [place] 00 the Medical morning Branch and 1 tablet in the evening. risperiDONE 2015-1 Yes .5mg Take 1 [facility] ers 0.5 mg 0-15 tablet by ity of tablet 00:00: mouth in [place] 00 the Medical morning Branch and 1 tablet in the evening. risperiDONE 2015-1 Yes .5mg Take 1 [facility] ers 0.5 mg 0-15 tablet by ity of tablet 00:00: mouth in [place] 00 the Medical morning Branch and 1 tablet in the evening. risperiDONE 2015-1 Yes .5mg Take 1 [facility] ers 0.5 mg 0-15 tablet by ity of tablet 00:00: mouth in [place] [address] the Medical morning Branch and 1 tablet in the evening. risperiDONE 2015-1 Yes .5mg Take 1 [facility] ers 0.5 mg 0-15 tablet by ity of tablet 00:00: mouth in [place] [address] the Medical morning Branch and 1 tablet in the evening. risperiDONE 2015-1 Yes .5mg Take 1 [facility] ers 0.5 mg 0-15 tablet by ity of tablet 00:00: mouth in [place] [address] the Medical morning Branch and 1 tablet in the evening. risperiDONE 2015-1 Yes .5mg Take 1 [facility] ers 0.5 mg 0-15 tablet by ity of tablet 00:00: mouth in [place] [address] the Medical morning Branch and 1 tablet in the evening. risperiDONE 2015-1 Yes .5mg Take 1 [facility] ers 0.5 mg 0-15 tablet by ity of tablet 00:00: mouth in [place] [address] the Medical morning Branch and 1 tablet in the evening. risperiDONE 2015-1 Yes .5mg Take 1 [facility] ers 0.5 mg 0-15 tablet by ity of tablet 00:00: mouth in [place] [address] the Medical morning Branch and 1 tablet in the evening. risperiDONE 2015-1 Yes .5mg Take 1 [facility] ers 0.5 mg 0-15 tablet by ity of tablet 00:00: mouth in [place] [address] the Medical morning Branch and 1 tablet in the evening. risperiDONE 2015-1 Yes .5mg Take 1 [facility] ers 0.5 mg 0-15 tablet by ity of tablet 00:00: mouth in [place] [address] the Medical morning Branch and 1 tablet in the evening. risperiDONE 2015-1 Yes .5mg Take 1 [facility] ers 0.5 mg 0-15 tablet by ity of tablet 00:00: mouth in [place] [address] the Medical morning Branch and 1 tablet in the evening. risperiDONE 2015-1 Yes .5mg Take 1 [facility] ers 0.5 mg 0-15 tablet by ity of tablet 00:00: mouth in [place] 00 the Medical morning Branch and 1 tablet in the evening. risperiDONE 2015-1 Yes .5mg Take 1 [facility] ers 0.5 mg 0-15 tablet by ity of tablet 00:00: mouth in [place] 00 the Medical morning Branch and 1 tablet in the evening. risperiDONE 2015-1 Yes .5mg Take 1 [facility] ers 0.5 mg 0-15 tablet by ity of tablet 00:00: mouth in [place] 00 the Medical morning Branch and 1 tablet in the evening. risperiDONE 2015-1 Yes .5mg Take 1 [facility] ers 0.5 mg 0-15 tablet by ity of tablet 00:00: mouth in [place] 00 the Medical morning Branch and 1 tablet in the evening. risperiDONE 2015-1 Yes .5mg Take 1 [facility] ers 0.5 mg 0-15 tablet by ity of tablet 00:00: mouth in [place] 00 the Medical morning Branch and 1 tablet in the evening. risperiDONE 2015-1 Yes .5mg Take 1 [facility] ers 0.5 mg 0-15 tablet by ity of tablet 00:00: mouth in [place] 00 the Medical morning Branch and 1 tablet in the evening. risperiDONE 2015-1 Yes .5mg Take 1 [facility] ers 0.5 mg 0-15 tablet by ity of tablet 00:00: mouth in [place] 00 the Medical morning Branch and 1 tablet in the evening. risperiDONE 2015-1 Yes .5mg Take 1 [facility] ers 0.5 mg 0-15 tablet by ity of tablet 00:00: mouth in [place] 00 the Medical morning Branch and 1 tablet in the evening. risperiDONE 2015-1 Yes .5mg Take 1 [facility] ers 0.5 mg 0-15 tablet by ity of tablet 00:00: mouth in [place] 00 the Medical morning Branch and 1 tablet in the evening. risperiDONE 2015-1 Yes .5mg Take 1 [facility] ers 0.5 mg 0-15 tablet by ity of tablet 00:00: mouth in [place] 00 the Medical morning Branch and 1 tablet in the evening. risperiDONE 2015-1 Yes .5mg Take 1 [facility] ers 0.5 mg 0-15 tablet by ity of tablet 00:00: mouth in [place] 00 the Medical morning Branch and 1 tablet in the evening. risperiDONE 2015-1 Yes .5mg Take 1 [facility] ers 0.5 mg 0-15 tablet by ity of tablet 00:00: mouth in [place] 00 the Medical morning Branch and 1 tablet in the evening. risperiDONE 2015-1 Yes .5mg Take 1 [facility] ers 0.5 mg 0-15 tablet by ity of tablet 00:00: mouth in [place] 00 the Medical morning Branch and 1 tablet in the evening. risperiDONE 2015-1 Yes .5mg Take 1 [facility] ers 0.5 mg 0-15 tablet by ity of tablet 00:00: mouth in [place] 00 the Medical morning Branch and 1 tablet in the evening. risperiDONE 2015-1 Yes .5mg Take 1 [facility] ers 0.5 mg 0-15 tablet by ity of tablet 00:00: mouth in [place] 00 the Medical morning Branch and 1 tablet in the evening. risperiDONE 2015-1 Yes .5mg Take 1 [facility] ers 0.5 mg 0-15 tablet by ity of tablet 00:00: mouth in [place] 00 the Medical morning Branch and 1 tablet in the evening. risperiDONE 2014-1 Yes .5mg Take 1 [facility] ers 0.5 mg 0-15 tablet by ity of tablet 00:00: mouth in [place] 00 the Medical morning Branch and 1 tablet in the evening. risperiDONE 2015-1 Yes .5mg Take 1 [facility] ers 0.5 mg 0-15 tablet by ity of tablet 00:00: mouth in [place] 00 the Medical morning Branch and 1 tablet in the evening. risperiDONE 2015-1 Yes .5mg Take 1 [facility] ers 0.5 mg 0-15 tablet by ity of tablet 00:00: mouth in [place] 00 the Medical morning Branch and 1 tablet in the evening. risperiDONE 2015-1 Yes .5mg Take 1 [facility] ers 0.5 mg 0-15 tablet by ity of tablet 00:00: mouth in [place] 00 the Medical morning Branch and 1 tablet in the evening. risperiDONE 2015-1 Yes .5mg Take 1 [facility] ers 0.5 mg 0-15 tablet by ity of tablet 00:00: mouth in [place] 00 the Medical morning Branch and 1 tablet in the evening. risperiDONE 2015-1 Yes .5mg Take 1 [facility] ers 0.5 mg 0-15 tablet by ity of tablet 00:00: mouth in [place] 00 the Medical morning Branch and 1 tablet in the evening. risperiDONE 2015-1 Yes .5mg Take 1 [facility] ers 0.5 mg 0-15 tablet by ity of tablet 00:00: mouth in [place] 00 the Medical morning Branch and 1 tablet in the evening. risperiDONE 2015-1 Yes .5mg Take 1 [facility] ers 0.5 mg 0-15 tablet by ity of tablet 00:00: mouth in [place] 00 the Medical morning Branch and 1 tablet in the evening. risperiDONE 2015-1 Yes .5mg Take 1 [facility] ers 0.5 mg 0-15 tablet by ity of tablet 00:00: mouth in [place] 00 the Medical morning Branch and 1 tablet in the evening. risperiDONE 2015-1 Yes .5mg Take 1 [facility] ers 0.5 mg 0-15 tablet by ity of tablet 00:00: mouth in [place] 00 the Medical morning Branch and 1 tablet in the evening. risperiDONE 2015-1 Yes .5mg Take 1 [facility] ers 0.5 mg 0-15 tablet by ity of tablet 00:00: mouth in [place] 00 the Medical morning Branch and 1 tablet in the evening. risperiDONE 2015-1 Yes .5mg Take 1 Univ ers 0.5 mg 0-15 tablet by ity of tablet 00:00: mouth in [place] 00 the Medical morning Branch and 1 tablet in the evening. risperiDONE 2015-1 Yes .5mg Take 1 [facility] ers 0.5 mg 0-15 tablet by ity of tablet 00:00: mouth in [place] 00 the Medical morning Branch and 1 tablet in the evening. risperiDONE 2015-1 Yes .5mg Take 1 [facility] ers 0.5 mg 0-15 tablet by ity of tablet 00:00: mouth in [place] 00 the Medical morning Branch and 1 tablet in the evening. risperiDONE 2015-1 Yes .5mg Take 1 [facility] ers 0.5 mg 0-15 tablet by ity of tablet 00:00: mouth in [place] 00 the Medical morning Branch and 1 tablet in the evening. risperiDONE 2015-1 Yes .5mg Take 1 [facility] ers 0.5 mg 0-15 tablet by ity of tablet 00:00: mouth in [place] 00 the Medical morning Branch and 1 tablet in the evening. risperiDONE 2015-1 Yes .5mg Take 1 [facility] ers 0.5 mg 0-15 tablet by ity of tablet 00:00: mouth in [place] 00 the Medical morning Branch and 1 tablet in the evening. risperiDONE 2015-1 Yes .5mg Take 1 [facility] ers 0.5 mg 0-15 tablet by ity of tablet 00:00: mouth in [place] 00 the Medical morning Branch and 1 tablet in the evening. risperiDONE 2015-1 Yes .5mg Take 1 [facility] ers 0.5 mg 0-15 tablet by ity of tablet 00:00: mouth in [place] 00 the Medical morning Branch and 1 tablet in the evening. risperiDONE 2015-1 Yes .5mg Take 1 [facility] ers 0.5 mg 0-15 tablet by ity of tablet 00:00: mouth in [place] 00 the Medical morning Branch and 1 tablet in the evening. risperiDONE 2015-1 Yes .5mg Take 1 [facility] ers 0.5 mg 0-15 tablet by ity of tablet 00:00: mouth in [place] 00 the Medical morning Branch and 1 tablet in the evening. risperiDONE 2015-1 Yes .5mg Take 1 [facility] ers 0.5 mg 0-15 tablet by ity of tablet 00:00: mouth in [place] 00 the Medical morning Branch and 1 tablet in the evening. risperiDONE 2015-1 Yes .5mg Take 1 [facility] ers 0.5 mg 0-15 tablet by ity of tablet 00:00: mouth in [place] [address] the Medical morning Branch and 1 tablet in the evening. risperiDONE 2015-1 Yes .5mg Take 1 [facility] ers 0.5 mg 0-15 tablet by ity of tablet 00:00: mouth in [place] [address] the Medical morning Branch and 1 tablet in the evening. risperiDONE 2015-1 Yes .5mg Take 1 [facility] ers 0.5 mg 0-15 tablet by ity of tablet 00:00: mouth in [place] [address] the Medical morning Branch and 1 tablet in the evening. risperiDONE 2015-1 Yes .5mg Take 1 [facility] ers 0.5 mg 0-15 tablet by ity of tablet 00:00: mouth in [place] [address] the Medical morning Branch and 1 tablet in the evening. risperiDONE 2015-1 Yes .5mg Take 1 [facility] ers 0.5 mg 0-15 tablet by ity of tablet 00:00: mouth in [place] [address] the Medical morning Branch and 1 tablet in the evening. risperiDONE 2015-1 Yes .5mg Take 1 [facility] ers 0.5 mg 0-15 tablet by ity of tablet 00:00: mouth in [place] [address] the Medical morning Branch and 1 tablet in the evening. risperiDONE 2015-1 Yes .5mg Take 1 [facility] ers 0.5 mg 0-15 tablet by ity of tablet 00:00: mouth in [place] [address] the Medical morning Branch and 1 tablet in the evening. risperiDONE 2015-1 Yes .5mg Take 1 [facility] ers 0.5 mg 0-15 tablet by ity of tablet 00:00: mouth in [place] [address] the Medical morning Branch and 1 tablet in the evening. risperiDONE 2014- Yes .5mg Take 1 [facility] ers 0.5 mg 0-15 tablet by ity of tablet 00:00: mouth in [place] [address] the Medical morning Branch and 1 tablet in the evening. risperiDONE 2014-07 Yes .5mg Take 1 [facility] ers 0.5 mg 0-15 tablet by ity of tablet 00:00: mouth in [place] [address] the Medical morning Branch and 1 tablet in the evening. ranitidine Yes [facility] (ZANTAC) 15 7-31 ity of mg/mL syrup 00:00: [place] 00 [facility] ranitidine Yes [facility] (ZANTAC) 15 7-31 ity of mg/mL syrup 00:00: [place] [facility] ranitidine Yes [facility] (ZANTAC) 15 7-31 ity of mg/mL syrup 00:00: [place] [facility] ranitidine Yes [facility] (ZANTAC) 15 7-31 ity of mg/mL syrup 00:00: [place] 00 [facility] ranitidine Yes [facility] (ZANTAC) 15 7-31 ity of mg/mL syrup 00:00: [place] 00 [facility] ranitidine Yes [facility] (ZANTAC) 15 7-31 ity of mg/mL syrup 00:00: [place] 00 [facility] ranitidine 0 Yes [facility] (ZANTAC) 15 7-31 ity of mg/mL syrup 00:00: [place] 00 [facility] ranitidine 0 Yes [facility] (ZANTAC) 15 7-31 ity of mg/mL syrup 00:00: [place] [facility] ranitidine 0 Yes [facility] (ZANTAC) 15 7-31 ity of mg/mL syrup 00:00: [place] [facility] ranitidine 0 Yes [facility] (ZANTAC) 15 7-31 ity of mg/mL syrup 00:00: [place] 00 [facility] ranitidine 0 Yes [facility] (ZANTAC) 15 7-31 ity of mg/mL syrup 00:00: [place] [facility] ranitidine 0 Yes [facility] (ZANTAC) 15 7-31 ity of mg/mL syrup 00:00: [place] 00 [facility] ranitidine 0 Yes Univers [...] 00:00 [place] 00 :00 Medical Branch ranitidine 2023- No Univer s (ZANTAC) 15 02-15 ity of mg/mL syrup 00:00: 00:00 [place] 00 :00 Medical Branch ranitidine 2022- No Univer s (ZANTAC) 15 02-15 ity of mg/mL syrup 00:00: 00:00 [place] 00 :00 Medical Branch ranitidine 2023- No Univer s (ZANTAC) 15 02-15 ity [...] N ORAL TAB 2-19 ity of :: [place] [facility] MULTIVITAMI 2009-0 Yes one daily U nivers N ORAL TAB 2-19 ity of 00:00: [place] 00 [facility] MULTIVITAMI 2009-0 Yes one daily U nivers N ORAL TAB 2-19 ity of :: [place] [facility] MULTIVITAMI 2009-0 Yes one daily U nivers N ORAL TAB 2-19 ity of 00:00: [facility] MULTIVITAMI 2009-0 Yes one daily U nivers N ORAL TAB 2-19 ity of :00: [facility] MULTIVITAMI 2009-0 Yes one daily U nivers N ORAL TAB 2-19 ity of :00: [facility] MULTIVITAMI 2009-0 Yes one daily U nivers N ORAL TAB 2-19 [facility]y [facility] 00:00: [facility] MULTIVITAMI 2009-0 Yes one daily U nivers N ORAL TAB 2-19 ity of :00: [facility] MULTIVITAMI 2009-0 Yes one [...] ity of :00: [facility] MULTIVITAMI 2009-0 Yes one daily U nivers N ORAL TAB 2-19 ity of 00:00: [facility] MULTIVITAMI 2009-0 Yes one daily U nivers N ORAL TAB 2-19 ity of 00:00: [facility] MULTIVITAMI 2009-0 Yes one daily U nivers N ORAL TAB 2-19 ity of :00: [facility] MULTIVITAMI 2009-0 Yes one [...] ORAL TAB 2-19 ity of :00: [facility] MULTIVITAMI 2009-0 Yes [...] N ORAL TAB 2-19 ity of :: [facility] MULTIVITAMI 2009-0 Yes one daily U nivers N ORAL TAB 2-19 ity of 00:00: [facility] MULTIVITAMI 2009-0 Yes one daily U nivers N ORAL TAB 2-19 ity of :00: [facility] MULTIVITAMI 2009-0 Yes one daily U nivers N ORAL TAB 2-19 ity of 00:00: [facility] MULTIVITAMI 2009-0 Yes one daily U nivers N ORAL TAB 2-19 ity of :00: [facility] MULTIVITAMI 2009-0 Yes one daily U nivers N ORAL TAB 2-19 ity of :00: [facility] MULTIVITAMI 2008-0 Yes one daily U nivers N ORAL TAB 2-19 [facility]y of 00:00: [facility] MULTIVITAMI 2009-0 Yes one daily U nivers N ORAL TAB 2-19 [facility]y of :00: [facility] MULTIVITAMI 2009-0 Yes [...] ity of :00: [facility] MULTIVITAMI 2009-0 Yes one [...] ity of :00: [facility] MULTIVITAMI 2009-0 Yes one daily U nivers N ORAL TAB 2-19 ity of 00:00: [place] [id number] [facility] MULTIVITAMI 2009-0 Yes one daily U nivers N ORAL TAB 2-19 ity of :00: [facility] MULTIVITAMI 2009-0 Yes one daily U nivers N ORAL TAB 2-19 ity of 00:00: [place] [facility] MULTIVITAMI 2009-0 Yes one daily U nivers N ORAL TAB 2-19 ity of :00: [facility] MULTIVITAMI 2009-0 Yes one daily U nivers N ORAL TAB 2-19 ity of 00:00: [facility] MULTIVITAMI 2009-0 Yes one daily U nivers N ORAL TAB 2-19 ity of 00:00: [facility] MULTIVITAMI 2009-0 Yes one daily U nivers N ORAL TAB 2-19 ity of :00: [facility] MULTIVITAMI 2009-0 Yes [...] ity of :00: [facility] MULTIVITAMI 2009-0 Yes one [...] ORAL TAB 2-19 ity of :00: [facility] MULTIVITAMI 2009-0 Yes [...] N ORAL TAB 2-19 ity of 00:: [facility] MULTIVITAMI 2009-0 Yes one daily U nivers N ORAL TAB 2-19 ity of :: [facility] MULTIVITAMI 2008-0 Yes one [...] TAB 2-19 ity of 00:00: [place] 00 [facility] MULTIVITAMI 2009-0 Yes one daily U nivers N ORAL TAB 2-19 ity of 00:00: [address] MULTIVITAMI 2009-0 Yes one daily U nivers N ORAL TAB 2-19 ity of 00:00: [address] Immunizations Ordered Filled Date Status Comments Source Immunization Name Immunization Name HPV9 2016-04-01 Completed [facility] 00:00:00 [facility] HPV9 2016-04-01 Completed [facility] 00[facility]00:00 [facility] HPV9 2016-04-01 Completed [facility] 00:00:00 [facility] HPV9 2016-04-01 Completed [facility] 00:00:00 [facility] HPV9 2016-04-01 Completed [facility] 00:00:00 [facility] HPV9 2016-04-01 Completed [facility] 00:00:00 [facility] HPV9 2016-04-01 Completed [facility] 00:00:00 [facility] HPV9 2016-04-01 Completed [facility] 00:00:00 [facility] HPV9 2016-04-01 Completed [facility] 00:00:00 [facility] HPV9 2016-04-01 Completed [facility] 00:00:00 [facility] HPV9 2016-04-01 Completed [facility] 00:00:00 [facility] HPV9 2016-04-01 Completed [facility] 00:00:00 [facility] HPV9 2016-04-01 Completed [facility] 00:00:00 [facility] HPV9 2016-04-01 Completed [facility] 00:00:00 [facility] HPV9 2016-04-01 Completed [facility] 00:00:00 [facility] HPV9 2016-04-01 Completed [facility] 00:00:00 [facility] HPV9 2016-04-01 Completed [facility] 00:00:00 [facility] HPV9 2016-04-01 Completed [facility] 00:00:00 [facility] HPV9 2016-04-01 Completed [facility] 00:00:00 [facility] HPV9 2016-04-01 Completed [facility] 00:00:00 [facility] HPV9 2016-04-01 Completed [facility] 00:00:00 [facility] HPV9 2016-04-01 Completed [facility] 00:00:00 [facility] HPV9 2016-04-01 Completed [facility] 00:00:00 [facility] HPV9 2016-04-01 Completed University [...] Branch HPV9 2016-04-01 Completed [facility] 00:00:00 [facility] HPV9 2016-04-01 Completed University [...] Branch HPV9 2016-04-01 Completed [facility] 00:00:00 [facility] HPV9 2016-04-01 Completed [facility] 00:00:00 [facility] HPV9 2016-04-01 Completed [facility] 00:00:00 [facility] HPV9 2016-04-01 Completed [facility] 00:00:00 [facility] HPV9 2016-04-01 Completed [facility] 00:00:00 [facility] HPV9 2016-04-01 Completed [facility] 00:00:00 [facility] HPV9 2016-04-01 Completed [facility] 00:00:00 [facility] HPV9 2016-04-01 Completed [facility] 00:00:00 [facility] HPV9 2016-04-01 Completed [facility] 00:00:00 [facility] HPV9 2016-04-01 Completed [facility] 00:00:00 [facility] HPV9 2016-04-01 Completed [facility] 00:00:00 [facility] HPV9 2016-04-01 Completed [facility] 00:00:00 [facility] HPV9 2016-04-01 Completed [facility] 00:00:00 [facility] HPV9 2016-04-01 Completed [facility] 00:00:00 [facility] HPV9 2016-04-01 Completed [facility] 00:00:00 [facility] HPV9 2016-04-01 Completed [facility] 00:00:00 [facility] HPV9 2016-04-01 Completed [facility] 00:00:00 [facility] HPV9 2016-04-01 Completed [facility] 00:00:00 [facility] HPV9 2016-04-01 Completed [facility] 00:00:00 [facility] HPV9 2016-04-01 Completed [facility] 00:00:00 [facility] HPV9 2016-04-01 Completed [facility] 00:00:00 [facility] HPV9 2016-04-01 Completed [facility] 00:00:00 [facility] HPV9 2016-04-01 Completed [facility] 00:00:00 [facility] HPV9 2016-04-01 Completed [facility] 00:00:00 [facility] HPV9 2016-04-01 Completed [facility] 00:00:00 [facility] HPV9 2016-04-01 Completed University [...] Branch HPV9 2015-11-18 Completed [facility] 00:00:00 [facility] HPV9 2015-11-18 Completed [facility] 00:00:00 [facility] HPV9 2015-11-18 Completed [facility] 00:00:00 [facility] HPV9 2015-11-18 Completed [facility] 00:00:00 [facility] HPV9 2015-11-18 Completed [facility] 00:00:00 [facility] HPV9 2015-11-18 Completed [facility] 00:00:00 [facility] HPV9 2015-11-18 Completed [facility] 00:00:00 [facility] HPV9 2015-11-18 Completed [facility] 00:00:00 [facility] HPV9 2015-11-18 Completed University [...] Branch HPV9 2015-11-18 Completed [facility] 00:00:00 [facility] HPV9 2015-11-18 Completed [facility] 00:00:00 [facility] HPV9 2015-11-18 Completed [facility] 00:00:00 [facility] HPV9 2015-11-18 Completed [facility] 00:00:00 [facility] HPV9 2015-11-18 Completed [facility] 00:00:00 [facility] HPV9 2015-11-18 Completed [facility] 00:00:00 [facility] HPV9 2015-11-18 Completed [facility] 00:00:00 [facility] HPV9 2015-11-18 Completed [facility] 00:00:00 [facility] HPV9 2015-11-18 Completed [facility] 00:00:00 [facility] HPV9 2015-11-18 Completed [facility] 00:00:00 [facility] HPV9 2015-11-18 Completed [facility] 00:00:00 [facility] HPV9 2015-11-18 Completed [facility] 00:00:00 [facility] HPV9 2015-11-18 Completed [facility] 00:00:00 [facility] HPV9 2015-11-18 Completed [facility] 00:00:00 [facility] HPV9 2015-11-18 Completed [facility] 00:00:00 [facility] HPV9 2015-11-18 Completed [facility] 00:00:00 [facility] HPV9 2015-11-18 Completed University [...] Branch HPV9 2015-11-18 Completed [facility] 00:00:00 [facility] HPV9 2015-11-18 Completed [facility] 00:00:00 [facility] HPV9 2015-11-18 Completed [facility] 00:00:00 [facility] HPV9 2015-11-18 Completed [facility] 00:00:00 [facility] HPV9 2015-11-18 Completed [facility] 00:00:00 [facility] HPV9 2015-11-18 Completed [facility] 00:00:00 [facility] HPV9 2015-11-18 Completed [facility] 00:00:00 [facility] HPV9 2015-11-18 Completed [facility] 00:00:00 [facility] HPV9 2015-11-18 Completed [facility] 00:00:00 [facility] HPV9 2015-11-18 Completed [facility] 00:00:00 [facility] HPV9 2015-11-18 Completed [facility] 00:00:00 [facility] HPV9 2015-11-18 Completed [facility] 00:00:00 [facility] HPV9 2015-11-18 Completed University [...] Branch HPV9 2015-11-18 Completed [facility] 00:00:00 [facility] HPV9 2015-11-18 Completed [facility] 00:00:00 [facility] HPV9 2015-11-18 Completed [facility] 00:00:00 [facility] HPV9 2015-11-18 Completed [facility] 00:00:00 [facility] HPV9 2015-11-18 Completed [facility] 00:00:00 [facility] HPV9 2015-11-18 Completed [facility] 00:00:00 [facility] HPV9 2015-11-18 Completed [facility] 00:00:00 [facility] HPV9 2015-11-18 Completed [facility] 00:00:00 [facility] HPV9 2015-11-18 Completed University [...] Branch HPV9 2015-11-18 Completed [facility] 00:00:00 [facility] HPV9 2015-11-18 Completed [facility] 00:00:00 [facility] HPV9 2015-11-18 Completed [facility] 00:00:00 [facility] HPV9 2015-11-18 Completed [facility] 00:00:00 [facility] HPV9 2015-11-18 Completed [facility] 00:00:00 [facility] HPV9 2015-11-18 Completed [facility] 00:00:00 [facility] HPV9 2015-11-18 Completed [facility] 00:00:00 [facility] HPV9 2015-11-18 Completed [facility] 00:00:00 [facility] HPV9 2015-11-18 Completed [facility] 00:00:00 [facility] HPV9 2015-11-18 Completed [facility] 00:00:00 [facility] HPV9 2015-11-18 Completed [facility] 00:00:00 [facility] HPV9 2015-11-18 Completed [facility] 00:00:00 [facility] HPV9 2015-11-18 Completed [facility] 00:00:00 [facility] HPV9 2015-11-18 Completed [facility] 00:00:00 [facility] HPV9 2015-11-18 Completed [facility] 00:00:00 [facility] HPV9 2015-11-18 Completed [facility] 00:00:00 [facility] HPV9 2015-11-18 Completed University [...] Completed [facility] 00:00:00 [facility] HPV 2015-05-23 Completed [facility] of [...] Branch HPV 2015-05-23 Completed [facility] 00:00:00 [facility] HPV 2015-05-23 Completed [facility] 00:00:00 [facility] HPV 2015-05-23 Completed [facility] 00:00:00 [facility] HPV 2015-05-23 Completed [facility] 00:00:00 [facility] HPV 2015-05-23 Completed [facility] 00:00:00 [facility] HPV 2015-05-23 Completed [facility] 00:00:00 [facility] HPV 2015-05-23 Completed [facility] 00:00:00 [facility] HPV 2015-05-23 Completed [facility] 00:00:00 [facility] HPV 2015-05-23 Completed [facility] 00:00:00 [facility] HPV 2015-05-23 Completed [facility] 00:00:00 [facility] Influenza Virus 2009-06-17 Completed Universit y of Vaccine 00:00:00 [facility] Influenza Virus 2009-06-17 Completed [facility] y of Vaccine 00:00:00 [facility] Influenza Virus 2009-06-17 Completed [facility] y of Vaccine 00:00:00 [facility] Influenza Virus 2009-06-17 Completed [facility] y of Vaccine 00:00:00 [facility] Influenza Virus 2009-06-17 Completed [facility] y of Vaccine 00:00:00 [facility] Influenza Virus 2009-06-17 Completed [facility] y of Vaccine 00:00:00 [facility] Influenza Virus 2009-06-17 Completed [facility] y of Vaccine 00:00:00 [facility] Influenza Virus 2009-06-17 Completed [facility] y of Vaccine 00:00:00 [facility] Influenza Virus 2009-06-17 Completed [facility] y of Vaccine 00:00:00 [facility] Influenza Virus 2009-06-17 Completed [facility] y of Vaccine 00:00:00 [facility] Influenza Virus 2009-06-17 Completed [facility] y of Vaccine 00:00:00 [facility] Influenza Virus 2009-06-17 Completed [facility] y of Vaccine 00:00:00 [facility] Influenza Virus 2009-06-17 Completed [facility] y of Vaccine 00:00:00 [facility] Influenza Virus 2009-06-17 Completed [facility] y of Vaccine 00:00:00 [facility] Influenza Virus 2009-06-17 Completed [facility] y of Vaccine 00:00:00 [facility] Influenza Virus 2009-06-17 Completed [facility] of Vaccine 00:00:00 [facility] Influenza Virus 2009-06-17 Completed [facility] y of Vaccine 00:00:00 [facility] Influenza Virus 2009-06-17 Completed [facility] Vaccine 00:00:00 [facility] Influenza Virus 2009-06-17 Completed [facility] y of Vaccine 00:00:00 [facility] Influenza Virus 2009-06-17 Completed [facility] of Vaccine 00:00:00 [facility] Influenza Virus 2009-06-17 Completed [facility] of Vaccine 00:00:00 [facility] Influenza Virus 2009-06-17 Completed [facility] y of Vaccine 00:00:00 [facility] Influenza Virus 2009-06-17 Completed [facility] Vaccine 00:00:00 [facility] Influenza Virus 2009-06-17 Completed [facility] of Vaccine 00:00:00 [facility] Influenza Virus 2009-06-17 Completed [facility] y of Vaccine 00:00:00 [facility] Influenza Virus 2009-06-17 Completed [facility] y of Vaccine 00:00:00 [facility] Influenza Virus 2009-06-17 Completed [facility] of Vaccine 00:00:00 [facility] Influenza Virus 2009-06-17 Completed [facility] y of Vaccine 00:00:00 [facility] Influenza Virus 2009-06-17 Completed [facility] y of Vaccine 00:00:00 [facility] Influenza Virus 2009-06-17 Completed [facility] y of Vaccine 00:00:00 [facility] Influenza Virus 2009-06-17 Completed [facility] of Vaccine 00:00:00 [facility] Influenza Virus 2009-06-17 Completed [facility] y [facility] Vaccine 00:00:00 [facility] Influenza Virus 2009-06-17 Completed [facility] Vaccine 00:00:00 [facility] Influenza Virus 2009-06-17 Completed [facility] Vaccine 00:00:00 [facility] Influenza Virus 2009-06-17 Completed [facility] Vaccine 00:00:00 [facility] Influenza Virus 2009-06-17 Completed [facility] Vaccine 00:00:00 [facility] Influenza Virus 2009-06-17 Completed [facility] Vaccine 00:00:00 [facility] Influenza Virus 2009-06-17 Completed [facility] of Vaccine 00:00:00 [facility] Influenza Virus 2009-06-17 Completed [facility] y of Vaccine 00:00:00 [facility] Influenza Virus 2009-06-17 Completed [facility] Vaccine 00:00:00 [facility] Influenza Virus 2009-06-17 Completed [facility] of Vaccine 00:00:00 [facility] Influenza Virus 2009-06-17 Completed [facility] of Vaccine 00:00:00 [facility] Influenza Virus 2009-06-17 Completed [facility] Vaccine 00:00:00 [facility] Influenza Virus 2009-06-17 Completed [facility] Vaccine 00:00:00 [facility] Influenza Virus 2009-06-17 Completed [facility] of Vaccine 00:00:00 [facility] Influenza Virus 2009-06-17 Completed [facility] y of Vaccine 00:00:00 [facility] Influenza Virus 2009-06-17 Completed [facility] of Vaccine 00:00:00 [facility] Influenza Virus 2009-06-17 Completed [facility] y of Vaccine 00:00:00 [facility] Influenza Virus 2009-06-17 Completed [facility] Vaccine 00:00:00 [facility] Influenza Virus 2009-06-17 Completed [facility] Vaccine 00:00:00 [facility] Influenza Virus 2009-06-17 Completed [facility] Vaccine 00:00:00 [facility] Influenza Virus 2009-06-17 Completed [facility] Vaccine 00:00:00 [facility] Influenza Virus 2009-06-17 Completed [facility] Vaccine 00:00:00 [facility] Influenza Virus 2009-06-17 Completed [facility] Vaccine 00:00:00 [facility] Influenza Virus 2009-06-17 Completed [facility] Vaccine 00:00:00 [facility] Influenza Virus 2009-06-17 Completed [facility] Vaccine 00:00:00 [facility] Influenza Virus 2009-06-17 Completed [facility] Vaccine 00:00:00 [facility] Influenza Virus 2009-06-17 Completed [facility] of Vaccine 00:00:00 [facility] Influenza Virus 2009-06-17 Completed [facility] of Vaccine 00:00:00 [facility] Influenza Virus 2009-06-17 Completed [facility] of Vaccine 00:00:00 [facility] Influenza Virus 2009-06-17 Completed [facility] of Vaccine 00:00:00 [facility] Influenza Virus 2009-06-17 Completed [facility] Vaccine 00:00:00 [facility] Influenza Virus 2009-06-17 Completed [facility] Vaccine 00:00:00 [facility] Influenza Virus 2009-06-17 Completed [facility] of Vaccine 00:00:00 [facility] Influenza Virus 2009-06-17 Completed [facility] of Vaccine 00:00:00 [facility] Influenza Virus 2009-06-17 Completed [facility] Vaccine 00:00:00 [facility] Influenza Virus 2009-06-17 Completed [facility] Vaccine 00:00:00 [facility] Influenza Virus 2009-06-17 Completed [facility] Vaccine 00:00:00 [facility] Influenza Virus 2009-06-17 Completed [facility] Vaccine 00:00:00 [facility] Influenza Virus 2009-06-17 Completed [facility] Vaccine 00:00:00 [facility] Influenza Virus 2009-06-17 Completed [facility] Vaccine 00:00:00 [facility] Influenza Virus 2009-06-17 Completed [facility] of Vaccine 00:00:00 [facility] Influenza Virus 2009-06-17 Completed [facility] Vaccine 00:00:00 [facility] Influenza Virus 2009-06-17 Completed [facility] Vaccine 00:00:00 [facility] Influenza Virus 2009-06-17 Completed [facility] Vaccine 00:00:00 [facility] Influenza Virus 2009-06-17 Completed [facility] Vaccine 00:00:00 [facility] Influenza Virus 2009-06-17 Completed [facility] Vaccine 00:00:00 [facility] Influenza Virus 2009-06-17 Completed [facility] Vaccine 00:00:00 [facility] Influenza Virus 2009-06-17 Completed [facility] Vaccine 00:00:00 [facility] Influenza Virus 2009-06-17 Completed [facility] Vaccine 00:00:00 [facility] Influenza Virus 2009-06-17 Completed [facility] Vaccine 00:00:00 [facility] Influenza Virus 2009-06-17 Completed [facility] Vaccine 00:00:00 [facility] Influenza Virus 2009-06-17 Completed [facility] Vaccine 00:00:00 [facility] Influenza Virus 2009-06-17 Completed [facility] Vaccine 00:00:00 [facility] Influenza Virus 2009-06-17 Completed [facility] Vaccine 00:00:00 [facility] Influenza Virus 2009-06-17 Completed [facility] Vaccine 00:00:00 [facility] Influenza Virus 2009-06-17 Completed [facility] Vaccine 00:00:00 [facility] Influenza Virus 2009-06-17 Completed [facility] Vaccine 00:00:00 [facility] Influenza Virus 2009-06-17 Completed [facility] Vaccine 00:00:00 [facility] Influenza Virus 2009-06-17 Completed [facility] Vaccine 00:00:00 [facility] Influenza Virus 2009-06-17 Completed [facility] Vaccine 00:00:00 [facility] Influenza Virus 2009-06-17 Completed [facility] Vaccine 00:00:00 [facility] Influenza Virus 2009-06-17 Completed [facility] Vaccine 00:00:00 [facility] Influenza Virus 2009-06-17 Completed [facility] Vaccine 00:00:00 [facility] Influenza Virus 2009-06-17 Completed [facility] Vaccine 00:00:00 [facility] Influenza Virus 2009-06-17 Completed [facility] Vaccine 00:00:00 [facility] Influenza Virus 2009-06-17 Completed [facility] Vaccine 00:00:00 [facility] Influenza Virus 2009-06-17 Completed [facility] Vaccine 00:00:00 [facility] Influenza Virus 2009-06-17 Completed [facility] Vaccine 00:00:00 [facility] Influenza Virus 2009-06-17 Completed [facility] Vaccine 00:00:00 [facility] Influenza Virus 2009-06-17 Completed [facility] Vaccine 00:00:00 [facility] Influenza Virus 2009-06-17 Completed [facility] Vaccine 00:00:00 [facility] Influenza Virus 2009-06-17 Completed [facility] Vaccine 00:00:00 [facility] Influenza Virus 2009-06-17 Completed [facility] Vaccine 00:00:00 [facility] Influenza Virus 2009-06-17 Completed [facility] Vaccine 00:00:00 [facility] Influenza Virus 2009-06-17 Completed [facility] Vaccine 00:00:00 [facility] Influenza Virus 2009-06-17 Completed [facility]ine 00:00:00 [facility] [facility]00 [facility] Influenza Virus 2009-06-17 Completed [facility]00:00 [facility] Influenza Virus 2009-06-17 Completed [facility] 00[facility]00:00 [facility] Influenza Virus 2009-06-17 Completed [facility] 00[facility]00:00 [facility] Influenza Virus 2009-06-17 Completed [facility] 00[facility]00:00 [facility] Influenza Virus 2009-06-17 Completed [facility] 00[facility]00:00 [facility] Influenza Virus 2009-06-17 Completed [facility] 00[facility]00:00 [facility] Influenza Virus 2009-06-17 Completed [facility] 00[facility]00:00 [facility] Influenza Virus 2009-06-17 Completed [facility] 00[facility]00:00 [facility] Influenza Virus 2009-06-17 Completed [facility] 00[facility]00:00 [facility] Influenza Virus 2009-06-17 Completed [facility] 00[facility]00:00 [facility] Influenza Virus 2009-06-17 Completed [facility] 00[facility]00:00 [facility] Influenza Virus 2009-06-17 Completed [facility] 00[facility]00:00 [facility] Influenza Virus 2009-06-17 Completed [facility] 00[facility]00:00 [facility] Influenza Virus 2009-06-17 Completed [facility] 00[facility]00:00 [facility] Influenza Virus 2009-06-17 Completed [facility] 00[facility]00:00 [facility] Influenza Virus 2009-06-17 Completed [facility] 00:00:00 [facility] Influenza Virus 2009-06-17 Completed [facility] 00[facility]00:00 [facility] Influenza Virus 2009-06-17 Completed [facility] 00[facility]00:00 [facility] Influenza Virus 2009-06-17 Completed [facility] 00:00:00 [facility] Influenza Virus 2009-06-17 Completed [facility] 00[facility]00:00 [facility] Influenza Virus 2009-06-17 Completed [facility] 00[facility]00:00 [facility] Influenza Virus 2009-06-17 Completed [facility] 00[facility]00:00 [facility] Influenza Virus 2009-06-17 Completed [facility] 00[facility]00:00 [facility] Influenza Virus 2009-06-17 Completed [facility] 00:00:00 [facility] Influenza Virus 2009-06-17 Completed [facility] 00[facility]00:00 [facility] Influenza Virus 2009-06-17 Completed [facility] 00:00:00 [facility] Influenza Virus 2009-06-17 Completed [facility] 00[facility]00:00 [facility] Influenza Virus 2009-06-17 Completed [facility] 00:00:00 [facility] Influenza Virus 2009-06-17 Completed [facility] 00:00:00 [facility] Influenza Virus 2009-06-17 Completed [facility] 00[facility]00:00 [facility] Influenza Virus 2009-06-17 Completed [facility] 00:00:00 [facility] Influenza Virus 2009-06-17 Completed [facility] 00:00:00 [facility] Influenza Virus 2009-06-17 Completed [facility] 00:00:00 [facility] Influenza Virus 2009-06-17 Completed [facility] 00[facility]00:00 [facility] Influenza Virus 2009-06-17 Completed [facility] 00:00:00 [facility] Influenza Virus 2009-06-17 Completed [facility] 00:00:00 [facility] Influenza Virus 2009-06-17 Completed [facility] 00:00:00 [facility] Influenza Virus 2009-06-17 Completed [facility] 00:00:00 [facility] Influenza Virus 2009-06-17 Completed [facility] 00[facility]00:00 [facility] Influenza Virus 2009-06-17 Completed [facility] 00[facility]00:00 [facility] Influenza Virus 2009-06-17 Completed [facility] 00:00:00 [facility] Influenza Virus 2009-06-17 Completed [facility] 00[facility]00:00 [facility] Influenza Virus 2009-06-17 Completed [facility] 00:00:00 [facility] Influenza Virus 2009-06-17 Completed [facility] 00:00:00 [facility] Influenza Virus 2009-06-17 Completed [facility] 00:00:00 [facility] Influenza Virus 2009-06-17 Completed [facility] 00:00:00 [facility] Influenza Virus 2009-06-17 Completed [facility] 00:00:00 [facility] Influenza Virus 2009-06-17 Completed [facility] 00:00:00 [facility] Influenza Virus 2009-06-17 Completed [facility] 00:00:00 [facility] Influenza Virus 2009-06-17 Completed [facility] 00:00:00 [facility] Influenza Virus 2009-06-17 Completed [facility] 00[facility]00:00 [facility] Influenza Virus 2009-06-17 Completed [facility] 00:00:00 [facility] Influenza Virus 2009-06-17 Completed [facility] 00[facility]00:00 [facility] Influenza Virus 2009-06-17 Completed [facility] 00[facility]00:00 [facility] Influenza Virus 2009-06-17 Completed [facility] 00:00:00 [facility] Influenza Virus 2009-06-17 Completed [facility] 00:00:00 [facility] Influenza Virus 2009-06-17 Completed [facility] 00:00:00 [facility] Influenza Virus 2009-06-17 Completed [facility] 00:00:00 [facility] Influenza Virus 2009-06-17 Completed [facility] 00:00:00 [facility] Influenza Virus 2009-06-17 Completed [facility] 00:00:00 [facility] Influenza Virus 2009-06-17 Completed [facility] 00:00:00 [facility] Influenza Virus 2009-06-17 Completed [facility] 00:00:00 [facility] Influenza Virus 2009-06-17 Completed [facility] 00:00:00 [facility] Influenza Virus 2009-06-17 Completed [facility] 00[facility]00:00 [facility] Influenza Virus 2009-06-17 Completed [facility] 00:00:00 [facility] Influenza Virus 2009-06-17 Completed [facility] 00[facility]00:00 [facility] Influenza Virus 2009-06-17 Completed [facility] 00:00:00 [facility] Influenza Virus 2009-06-17 Completed [facility] 00:00:00 [facility] Influenza Virus 2009-06-17 Completed [facility] 00:00:00 [facility] Influenza Virus 2009-06-17 Completed [facility] 00:00:00 [facility] Influenza Virus 2009-06-17 Completed [facility] 00:00:00 [facility] Influenza Virus 2009-06-17 Completed [facility] 00:00:00 [facility] Influenza Virus 2009-06-17 Completed [facility] 00:00:00 [facility] Influenza Virus 2009-06-17 Completed [facility] 00:00:00 [facility] Influenza Virus 2009-06-17 Completed [facility] 00:00:00 [facility] Influenza Virus 2009-06-17 Completed [facility] 00:00:00 [facility] Influenza Virus 2009-06-17 Completed [facility] 00:00:00 [facility] Influenza Virus 2009-06-17 Completed [facility] 00:00:00 [facility] Influenza Virus 2009-06-17 Completed [facility] 00:00:00 [facility] Influenza Virus 2009-06-17 Completed [facility] 00:00:00 [facility] Influenza Virus 2009-06-17 Completed [facility] 00[facility]00:00 [facility] Influenza Virus 2009-06-17 Completed [facility] 00:00:00 [facility] Influenza Virus 2009-06-17 Completed [facility] 00:00:00 [facility] Influenza Virus 2009-06-17 Completed [facility] 00:00:00 [facility] Influenza Virus 2009-06-17 Completed [facility] 00:00:00 [facility] Influenza Virus 2009-06-17 Completed [facility] 00:00:00 [facility] Influenza Virus 2009-06-17 Completed [facility] 00:00:00 [facility] Influenza Virus 2009-06-17 Completed [facility] 00:00:00 [facility] Influenza Virus 2009-06-17 Completed [facility] 00:00:00 [facility] Influenza Virus 2009-06-17 Completed [facility] 00:00:00 [facility] Influenza Virus 2009-06-17 Completed [facility] 00:00:00 [facility] Influenza Virus 2009-06-17 Completed [facility] 00:00:00 [facility] Influenza Virus 2007-05-05 Completed [facility] 00:00:00 [facility] Influenza Virus 2007-05-05 Completed [facility] 00:00:00 [facility] Influenza Virus 2007-05-05 Completed [facility] 00:00:00 [facility] Influenza Virus 2007-05-05 Completed [facility] 00:00:00 [facility] Influenza Virus 2007-05-05 Completed [facility] 00:00:00 [facility] Influenza Virus 2007-05-05 Completed [facility] 00:00:00 [facility] Influenza Virus 2007-05-05 Completed [facility] 00:00:00 [facility] Influenza Virus 2007-05-05 Completed [facility] 00:00:00 [facility] Influenza Virus 2007-05-05 Completed [facility] 00:00:00 [facility] Influenza Virus 2007-05-05 Completed [facility] 00:00:00 [facility] Influenza Virus 2007-05-05 Completed [facility] 00:00:00 [facility] Influenza Virus 2007-05-05 Completed [facility] 00:00:00 [facility] Influenza Virus 2007-05-05 Completed [facility] 00:00:00 [facility] Influenza Virus 2007-05-05 Completed [facility] 00:00:00 [facility] Influenza Virus 2007-05-05 Completed [facility] 00:00:00 [facility] Influenza Virus 2007-05-05 Completed [facility] 00:00:00 [facility] Influenza Virus 2007-05-05 Completed [facility] 00:00:00 [facility] Influenza Virus 2007-05-05 Completed [facility] 00:00:00 [facility] Influenza Virus 2007-05-05 Completed [facility] 00:00:00 [facility] Influenza Virus 2007-05-05 Completed [facility] 00:00:00 [facility] Influenza Virus 2007-05-05 Completed [facility] 00:00:00 [facility] Influenza Virus 2007-05-05 Completed [facility] 00:00:00 [facility] Influenza Virus 2007-05-05 Completed [facility] 00:00:00 [facility] Influenza Virus 2007-05-05 Completed [facility] 00:00:00 [facility] Influenza Virus 2007-05-05 Completed [facility] 00:00:00 [facility] Influenza Virus 2007-05-05 Completed [facility] 00:00:00 [facility] Influenza Virus 2007-05-05 Completed [facility] 00[facility]00:00 [facility] Influenza Virus 2007-05-05 Completed [facility] 00:00:00 [facility] Influenza Virus 2007-05-05 Completed [facility] 00:00:00 [facility] Influenza Virus 2007-05-05 Completed [facility] 00:00:00 [facility] Influenza Virus 2007-05-05 Completed [facility] 00:00:00 [facility] Influenza Virus 2007-05-05 Completed [facility] 00:00:00 [facility] Influenza Virus 2007-05-05 Completed [facility] 00:00:00 [facility] Influenza Virus 2007-05-05 Completed [facility] 00:00:00 [facility] Influenza Virus 2007-05-05 Completed [facility] 00:00:00 [facility] Influenza Virus 2007-05-05 Completed [facility] 00:00:00 [facility] Influenza Virus 2007-05-05 Completed [facility] 00:00:00 [facility] Influenza Virus 2007-05-05 Completed [facility] 00:00:00 [facility] Influenza Virus 2007-05-05 Completed [facility] 00:00:00 [facility] Influenza Virus 2007-05-05 Completed [facility] 00:00:00 [facility] Influenza Virus 2007-05-05 Completed [facility] 00:00:00 [facility] Influenza Virus 2007-05-05 Completed [facility] 00:00:00 [facility] Influenza Virus 2007-05-05 Completed [facility] 00:00:00 [facility] Influenza Virus 2007-05-05 Completed [facility] 00:00:00 [facility] Influenza Virus 2007-05-05 Completed [facility] 00:00:00 [facility] Influenza Virus 2007-05-05 Completed [facility] 00:00:00 [facility] Influenza Virus 2007-05-05 Completed [facility] 00:00:00 [facility] Influenza Virus 2007-05-05 Completed [facility] 00:00:00 [facility] Influenza Virus 2007-05-05 Completed [facility] 00:00:00 [facility] Influenza Virus 2007-05-05 Completed [facility] 00:00:00 [facility] Influenza Virus 2007-05-05 Completed [facility] 00:00:00 [facility] Influenza Virus 2007-05-05 Completed [facility] 00:00:00 [facility] Influenza Virus 2007-05-05 Completed [facility] 00:00:00 [facility] Influenza Virus 2007-05-05 Completed [facility] 00:00:00 [facility] Influenza Virus 2007-05-05 Completed [facility] 00:00:00 [facility] Influenza Virus 2007-05-05 Completed [facility] 00:00:00 [facility] Influenza Virus 2007-05-05 Completed [facility] 00:00:00 [facility] Influenza Virus 2007-05-05 Completed [facility] 00:00:00 [facility] Influenza Virus 2007-05-05 Completed [facility] 00:00:00 [facility] Influenza Virus 2007-05-05 Completed [facility] 00:00:00 [facility] Influenza Virus 2007-05-05 Completed [facility] 00:00:00 [facility] Influenza Virus 2007-05-05 Completed [facility] 00:00:00 [facility] Influenza Virus 2007-05-05 Completed [facility] 00:00:00 [facility] Influenza Virus 2007-05-05 Completed [facility] 00:00:00 [facility] Influenza Virus 2007-05-05 Completed [facility] 00:00:00 [facility] Influenza Virus 2007-05-05 Completed [facility] 00:00:00 [facility] Influenza Virus 2007-05-05 Completed [facility] 00:00:00 [facility] Influenza Virus 2007-05-05 Completed [facility] 00:00:00 [facility] Influenza Virus 2007-05-05 Completed [facility] 00:00:00 [facility] Influenza Virus 2007-05-05 Completed [facility] 00:00:00 [facility] Influenza Virus 2007-05-05 Completed [facility] 00:00:00 [facility] Influenza Virus 2007-05-05 Completed [facility] 00:00:00 [facility] Influenza Virus 2007-05-05 Completed [facility] 00:00:00 [facility] Influenza Virus 2007-05-05 Completed [facility] 00:00:00 [facility] Influenza Virus 2007-05-05 Completed [facility] 00:00:00 [facility] Influenza Virus 2007-05-05 Completed [facility] 00:00:00 [facility] Influenza Virus 2007-05-05 Completed [facility] 00:00:00 [facility] Influenza Virus 2007-05-05 Completed [facility] 00:00:00 [facility] Influenza Virus 2007-05-05 Completed [facility] 00:00:00 [facility] Influenza Virus 2007-05-05 Completed [facility] 00:00:00 [facility] Influenza Virus 2007-05-05 Completed [facility] 00:00:00 [facility] Influenza Virus 2007-05-05 Completed [facility] 00:00:00 [facility] Influenza Virus 2007-05-05 Completed [facility] 00:00:00 [facility] Influenza Virus 2007-05-05 Completed [facility] 00:00:00 [facility] Influenza Virus 2007-05-05 Completed [facility] 00:00:00 [facility] Influenza Virus 2007-05-05 Completed [facility] 00:00:00 [facility] Influenza Virus 2007-05-05 Completed [facility] 00:00:00 [facility] Influenza Virus 2007-05-05 Completed [facility] 00:00:00 [facility] Influenza Virus 2007-05-05 Completed [facility] 00:00:00 [facility] Influenza Virus 2007-05-05 Completed [facility] 00:00:00 [facility] Influenza Virus 2007-05-05 Completed [facility] 00:00:00 [facility] Influenza Virus 2007-05-05 Completed [facility] 00:00:00 [facility] Influenza Virus 2007-05-05 Completed [facility] 00:00:00 [facility] Influenza Virus 2007-05-05 Completed [facility] 00:00:00 [facility] Influenza Virus 2007-05-05 Completed [facility] 00:00:00 [facility] Influenza Virus 2007-05-05 Completed [facility] 00:00:00 [facility] Influenza Virus 2007-05-05 Completed [facility] 00:00:00 [facility] Influenza Virus 2007-05-05 Completed [facility] 00:00:00 [facility] Influenza Virus 2007-05-05 Completed [facility] 00:00:00 [facility] Influenza Virus 2007-05-05 Completed [facility] 00:00:00 [facility] Influenza Virus 2007-05-05 Completed [facility] 00:00:00 [facility] Influenza Virus 2007-05-05 Completed [facility] 00:00:00 [facility] Influenza Virus 2007-05-05 Completed [facility] 00:00:00 [facility] Influenza Virus 2007-05-05 Completed [facility] 00:00:00 [facility] Influenza Virus 2007-05-05 Completed [facility] 00:00:00 [facility] Influenza Virus 2007-05-05 Completed [facility] 00:00:00 [facility] Influenza Virus 2007-05-05 Completed [facility] 00:00:00 [facility] Influenza Virus 2007-05-05 Completed [facility] 00:00:00 [facility] Influenza Virus 2007-05-05 Completed [facility] 00:00:00 [facility] Influenza Virus 2007-05-05 Completed [facility] 00:00:00 [facility] Influenza Virus 2007-05-05 Completed [facility] 00:00:00 [facility] Influenza Virus 2007-05-05 Completed [facility] 00:00:00 [facility] Influenza Virus 2007-05-05 Completed [facility] 00:00:00 [facility] Influenza Virus 2007-05-05 Completed [facility] 00:00:00 [facility] Influenza Virus 2007-05-05 Completed [facility] 00:00:00 [facility] Influenza Virus 2007-05-05 Completed [facility] 00:00:00 [facility] Influenza Virus 2007-05-05 Completed [facility] 00:00:00 [facility] Influenza Virus 2007-05-05 Completed [facility] 00:00:00 [facility] Influenza Virus 2007-05-05 Completed [facility] 00:00:00 [facility] Influenza Virus 2007-05-05 Completed [facility] 00:00:00 [facility] Influenza Virus 2007-05-05 Completed [facility] 00:00:00 [facility] Influenza Virus 2007-05-05 Completed [facility] 00:00:00 [facility] Influenza Virus 2007-05-05 Completed [facility] 00:00:00 [facility] Influenza Virus 2007-05-05 Completed [facility] 00:00:00 [facility] Influenza Virus 2007-05-05 Completed [facility] 00:00:00 [facility] Influenza Virus 2007-05-05 Completed [facility] 00:00:00 [facility] Influenza Virus 2007-05-05 Completed [facility] 00:00:00 [facility] Influenza Virus 2007-05-05 Completed [facility] 00:00:00 [facility] Influenza Virus 2007-05-05 Completed [facility] 00:00:00 [facility] Influenza Virus 2007-05-05 Completed [facility] 00:00:00 [facility] Influenza Virus 2007-05-05 Completed [facility] 00:00:00 [facility] Influenza Virus 2007-05-05 Completed [facility] 00:00:00 [facility] Influenza Virus 2007-05-05 Completed [facility] 00:00:00 [facility] Influenza Virus 2007-05-05 Completed [facility] 00[facility]00:00 [facility] Influenza Virus 2007-05-05 Completed [facility] 00:00:00 [facility] Influenza Virus 2007-05-05 Completed [facility] Vaccine 00:00:00 [facility] Influenza Virus 2007-05-05 Completed [facility] Vaccine 00:00:00 [facility] Influenza Virus 2007-05-05 Completed [facility] Vaccine 00:00:00 [facility] Influenza Virus 2007-05-05 Completed [facility] Vaccine 00:00:00 [facility] Influenza Virus 2007-05-05 Completed [facility] Vaccine 00:00:00 [facility] Influenza Virus 2007-05-05 Completed [facility] Vaccine 00:00:00 [facility] Influenza Virus 2007-05-05 Completed [facility] Vaccine 00:00:00 [facility] Influenza Virus 2007-05-05 Completed [facility] Vaccine 00:00:00 [facility] Influenza Virus 2007-05-05 Completed [facility] Vaccine 00:00:00 [facility] Influenza Virus 2007-05-05 Completed [facility] Vaccine 00:00:00 [facility] Influenza Virus 2007-05-05 Completed [facility] Vaccine 00:00:00 [facility] Influenza Virus 2007-05-05 Completed [facility] Vaccine 00:00:00 [facility] Influenza Virus 2007-05-05 Completed [facility] Vaccine 00:00:00 [facility] Influenza Virus 2007-05-05 Completed [facility] Vaccine 00:00:00 [facility] Influenza Virus 2007-05-05 Completed [facility] Vaccine 00:00:00 [facility] Influenza Virus 2007-05-05 Completed [facility] Vaccine 00:00:00 [facility] Influenza Virus 2007-05-05 Completed [facility] Vaccine 00:00:00 [facility] Influenza Virus 2007-05-05 Completed [facility] Vaccine 00:00:00 [facility] Influenza Virus 2007-05-05 Completed [facility] Vaccine 00:00:00 [facility] Influenza Virus 2007-05-05 Completed [facility] Vaccine 00:00:00 [facility] Influenza Virus 2007-05-05 Completed [facility] Vaccine 00:00:00 [facility] Influenza Virus 2007-05-05 Completed [facility] Vaccine 00:00:00 [facility] Influenza Virus 2007-05-05 Completed [facility] Vaccine 00:00:00 [facility] Influenza Virus 2007-05-05 Completed [facility] Vaccine 00:00:00 [facility] Influenza Virus 2007-05-05 Completed [facility] Vaccine 00:00:00 [facility] Influenza Virus 2007-05-05 Completed [facility] Vaccine 00:00:00 [facility] Influenza Virus 2007-05-05 Completed [facility] Vaccine 00:00:00 [facility] Influenza Virus 2007-05-05 Completed [facility] Vaccine 00:00:00 [facility] Influenza Virus 2007-05-05 Completed [facility] Vaccine 00:00:00 [facility] Influenza Virus 2007-05-05 Completed [facility] Vaccine 00:00:00 [facility] Influenza Virus 2007-05-05 Completed [facility] Vaccine 00:00:00 [facility] Influenza Virus 2007-05-05 Completed [facility] Vaccine 00:00:00 [facility] Influenza Virus 2007-05-05 Completed [facility] Vaccine 00:00:00 [facility] Influenza Virus 2007-05-05 Completed [facility] Vaccine 00:00:00 [facility] Influenza Virus 2007-05-05 Completed [facility] Vaccine 00:00:00 [facility] Influenza Virus 2007-05-05 Completed [facility] Vaccine 00:00:00 [facility] Influenza Virus 2007-05-05 Completed [facility] Vaccine 00:00:00 [facility] Influenza Virus 2007-05-05 Completed [facility] Vaccine 00:00:00 [facility] Influenza Virus 2007-05-05 Completed [facility] Vaccine 00:00:00 [facility] Influenza Virus 2007-05-05 Completed [facility] Vaccine 00:00:00 [facility] Influenza Virus 2007-05-05 Completed [facility] Vaccine 00:00:00 [facility] Influenza Virus 2007-05-05 Completed [facility] Vaccine 00:00:00 [facility] Influenza Virus 2007-05-05 Completed [facility] Vaccine 00:00:00 [facility] Influenza Virus 2007-05-05 Completed [facility] Vaccine 00:00:00 [facility] Influenza Virus 2007-05-05 Completed [facility] Vaccine 00:00:00 [facility] Influenza Virus 2007-05-05 Completed [facility] Vaccine 00:00:00 [facility] Influenza Virus 2007-05-05 Completed [facility] Vaccine 00:00:00 [facility] Influenza Virus 2007-05-05 Completed [facility] Vaccine 00:00:00 [facility] Influenza Virus 2007-05-05 Completed [facility] Vaccine 00:00:00 [facility] Influenza Virus 2007-05-05 Completed [facility] Vaccine 00:00:00 [facility] Influenza Virus 2007-05-05 Completed [facility] Vaccine 00:00:00 [facility] Influenza Virus 2007-05-05 Completed [facility] Vaccine 00:00:00 [facility] Influenza Virus 2007-05-05 Completed [facility] Vaccine 00:00:00 [facility] Influenza Virus 2007-05-05 Completed [facility] Vaccine 00:00:00 [facility] Influenza Virus 2007-05-05 Completed [facility] Vaccine 00:00:00 [facility] Influenza Virus 2007-05-05 Completed [facility] Vaccine 00:00:00 [facility] Influenza Virus 2007-05-05 Completed [facility] Vaccine 00:00:00 [facility] Influenza Virus 2007-05-05 Completed [facility] Vaccine 00:00:00 [facility] Influenza Virus 2007-05-05 Completed [facility] Vaccine 00:00:00 [facility] Influenza Virus 2007-05-05 Completed [facility] Vaccine 00:00:00 [facility] Influenza Virus 2007-05-05 Completed [facility] Vaccine 00:00:00 [facility] Influenza Virus 2007-05-05 Completed [facility] Vaccine 00:00:00 [facility] Influenza Virus 2007-05-05 Completed [facility] Vaccine 00:00:00 [facility] Influenza Virus 2007-05-05 Completed [facility] Vaccine 00:00:00 [facility] Influenza Virus 2007-05-05 Completed [facility] Vaccine 00:00:00 [facility] Influenza Virus 2005-06-18 Completed [facility] Vaccine - Whole 00:00:00 [facility] Influenza Virus 2005-06-18 Completed [facility] Vaccine - Whole 00:00:00 [facility] Influenza Virus 2005-06-18 Completed [facility] Vaccine - Whole 00:00:00 [facility] Influenza Virus 2005-06-18 Completed [facility] Vaccine - Whole 00:00:00 [facility] Influenza Virus 2005-06-18 Completed [facility] Vaccine - Whole 00:00:00 [facility] Influenza Virus 2005-06-18 Completed [facility] Vaccine - Whole 00:00:00 [facility] Influenza Virus 2005-06-18 Completed [facility] Vaccine - Whole 00:00:00 [facility] Influenza Virus 2005-06-18 Completed [facility] Vaccine - Whole 00:00:00 [facility] Influenza Virus 2005-06-18 Completed [facility] Vaccine - Whole 00:00:00 [facility] Influenza Virus 2005-06-18 Completed [facility] Vaccine - Whole 00:00:00 [facility] Influenza Virus 2005-06-18 Completed [facility] Vaccine - Whole 00:00:00 [facility] Influenza Virus 2005-06-18 Completed [facility] Vaccine - Whole 00:00:00 [facility] Influenza Virus 2005-06-18 Completed [facility] Vaccine - Whole 00:00:00 [facility] Influenza Virus 2005-06-18 Completed [facility] Vaccine - Whole 00:00:00 [facility] Influenza Virus 2005-06-18 Completed [facility] Vaccine - Whole 00:00:00 [facility] Influenza Virus 2005-06-18 Completed [facility] Vaccine - Whole 00:00:00 [facility] Influenza Virus 2005-06-18 Completed [facility] Vaccine - Whole 00:00:00 [facility] Influenza Virus 2005-06-18 Completed [facility] Vaccine - Whole 00:00:00 [facility] Influenza Virus 2005-06-18 Completed [facility] Vaccine - Whole 00:00:00 [facility] Influenza Virus 2005-06-18 Completed [facility] Vaccine - Whole 00:00:00 [facility] Influenza Virus 2005-06-18 Completed [facility] Vaccine - Whole 00:00:00 [facility] Influenza Virus 2005-06-18 Completed [facility] Vaccine - Whole 00:00:00 [facility] Influenza Virus 2005-06-18 Completed [facility] Vaccine - Whole 00:00:00 [facility] Influenza Virus 2005-06-18 Completed [facility] Vaccine - Whole 00:00:00 [facility] Influenza Virus 2005-06-18 Completed [facility] Vaccine - Whole 00:00:00 [facility] Influenza Virus 2005-06-18 Completed [facility] Vaccine - Whole 00:00:00 [facility] Influenza Virus 2005-06-18 Completed [facility] Vaccine - Whole 00:00:00 [facility] Influenza Virus 2005-06-18 Completed [facility] Vaccine - Whole 00:00:00 [facility] Influenza Virus 2005-06-18 Completed [facility] Vaccine - Whole 00:00:00 [facility] Influenza Virus 2005-06-18 Completed [facility] Vaccine - Whole 00:00:00 [facility] Influenza Virus 2005-06-18 Completed [facility] Vaccine - Whole 00:00:00 [facility] Influenza Virus 2005-06-18 Completed [facility] Vaccine - Whole 00:00:00 [facility] Influenza Virus 2005-06-18 Completed [facility] Vaccine - Whole 00:00:00 [facility] Influenza Virus 2005-06-18 Completed [facility] Vaccine - Whole 00:00:00 [facility] Influenza Virus 2005-06-18 Completed [facility] Vaccine - Whole 00:00:00 [facility] Influenza Virus 2005-06-18 Completed [facility] Vaccine - Whole 00:00:00 [facility] Influenza Virus 2005-06-18 Completed [facility] Vaccine - Whole 00:00:00 [facility] Influenza Virus 2005-06-18 Completed [facility] Vaccine - Whole 00:00:00 [facility] Influenza Virus 2005-06-18 Completed [facility] Vaccine - Whole 00:00:00 [facility] Influenza Virus 2005-06-18 Completed [facility] Vaccine - Whole 00:00:00 [facility] Influenza Virus 2005-06-18 Completed [facility] Vaccine - Whole 00:00:00 [facility] Influenza Virus 2005-06-18 Completed [facility] Vaccine - Whole 00:00:00 [facility] Influenza Virus 2005-06-18 Completed [facility] Vaccine - Whole 00:00:00 [facility] Influenza Virus 2005-06-18 Completed [facility] Vaccine - Whole 00:00:00 [facility] Influenza Virus 2005-06-18 Completed [facility] Vaccine - Whole 00:00:00 [facility] Influenza Virus 2005-06-18 Completed [facility] Vaccine - Whole 00:00:00 [facility] Influenza Virus 2005-06-18 Completed [facility] Vaccine - Whole 00:00:00 [facility] Influenza Virus 2005-06-18 Completed [facility] Vaccine - Whole 00:00:00 [facility] Influenza Virus 2005-06-18 Completed [facility] Vaccine - Whole 00:00:00 [facility] Influenza Virus 2005-06-18 Completed [facility] Vaccine - Whole 00:00:00 [facility] Influenza Virus 2005-06-18 Completed [facility] Vaccine - Whole 00:00:00 [facility] Influenza Virus 2005-06-18 Completed [facility] Vaccine - Whole 00:00:00 [facility] Influenza Virus 2005-06-18 Completed [facility] Vaccine - Whole 00:00:00 [facility] Influenza Virus 2005-06-18 Completed [facility] Vaccine - Whole 00:00:00 [facility] Influenza Virus 2005-05-07 Completed [facility] Vaccine - Whole 00:00:00 [facility] Influenza Virus 2005-05-07 Completed [facility] Vaccine - Whole 00:00:00 [facility] Influenza Virus 2005-05-07 Completed [facility] Vaccine - Whole 00:00:00 [facility] Influenza Virus 2005-05-07 Completed [facility] Vaccine - Whole 00:00:00 [facility] Influenza Virus 2005-05-07 Completed [facility] Vaccine - Whole 00:00:00 [facility] Influenza Virus 2005-05-07 Completed [facility] Vaccine - Whole 00:00:00 [facility] Influenza Virus 2005-05-07 Completed [facility] Vaccine - Whole 00:00:00 [facility] Influenza Virus 2005-05-07 Completed [facility] Vaccine - Whole 00:00:00 [facility] Influenza Virus 2005-05-07 Completed [facility] Vaccine - Whole 00:00:00 [facility] Influenza Virus 2005-05-07 Completed [facility] Vaccine - Whole 00:00:00 [facility] Influenza Virus 2005-05-07 Completed [facility] Vaccine - Whole 00:00:00 [facility] Influenza Virus 2005-05-07 Completed [facility] Vaccine - Whole 00:00:00 [facility] Influenza Virus 2005-05-07 Completed [facility] Vaccine - Whole 00:00:00 [facility] Influenza Virus 2005-05-07 Completed [facility] Vaccine - Whole 00:00:00 [facility] Influenza Virus 2005-05-07 Completed [facility] Vaccine - Whole 00:00:00 [facility] Influenza Virus 2005-05-07 Completed [facility] Vaccine - Whole 00:00:00 [facility] Influenza Virus 2005-05-07 Completed [facility] Vaccine - Whole 00:00:00 [facility] Influenza Virus 2005-05-07 Completed [facility] Vaccine - Whole 00:00:00 [facility] Influenza Virus 2005-05-07 Completed [facility] Vaccine - Whole 00:00:00 [facility] Influenza Virus 2005-05-07 Completed [facility] Vaccine - Whole 00:00:00 [facility] Influenza Virus 2005-05-07 Completed [facility] Vaccine - Whole 00:00:00 [facility] Influenza Virus 2005-05-07 Completed [facility] Vaccine - Whole 00:00:00 [facility] Influenza Virus 2005-05-07 Completed [facility] Vaccine - Whole 00:00:00 [facility] Influenza Virus 2005-05-07 Completed [facility] Vaccine - Whole 00:00:00 [facility] Influenza Virus 2005-05-07 Completed [facility] Vaccine - Whole 00:00:00 [facility] Influenza Virus 2005-05-07 Completed [facility] Vaccine - Whole 00:00:00 [facility] Influenza Virus 2005-05-07 Completed [facility] Vaccine - Whole 00:00:00 [facility] Influenza Virus 2005-05-07 Completed [facility] Vaccine - Whole 00:00:00 [facility] Influenza Virus 2005-05-07 Completed [facility] Vaccine - Whole 00:00:00 [facility] Influenza Virus 2005-05-07 Completed [facility] Vaccine - Whole 00:00:00 [facility] Influenza Virus 2005-05-07 Completed [facility] Vaccine - Whole 00:00:00 [facility] Influenza Virus 2005-05-07 Completed [facility] Vaccine - Whole 00:00:00 [facility] Influenza Virus 2005-05-07 Completed [facility] Vaccine - Whole 00:00:00 [facility] Influenza Virus 2005-05-07 Completed [facility] Vaccine - Whole 00:00:00 [facility] Influenza Virus 2005-05-07 Completed [facility] Vaccine - Whole 00:00:00 [facility] Influenza Virus 2005-05-07 Completed [facility] Vaccine - Whole 00:00:00 [facility] Influenza Virus 2005-05-07 Completed [facility] Vaccine - Whole 00:00:00 [facility] Influenza Virus 2005-05-07 Completed [facility] Vaccine - Whole 00:00:00 [facility] Influenza Virus 2005-05-07 Completed [facility] Vaccine - Whole 00:00:00 [facility] Influenza Virus 2005-05-07 Completed [facility] Vaccine - Whole 00:00:00 [facility] Influenza Virus 2005-05-07 Completed [facility] Vaccine - Whole 00:00:00 [facility] Influenza Virus 2005-05-07 Completed [facility] Vaccine - Whole 00:00:00 [facility] Influenza Virus 2005-05-07 Completed [facility] Vaccine - Whole 00:00:00 [facility] Influenza Virus 2005-05-07 Completed [facility] Vaccine - Whole 00:00:00 [facility] Influenza Virus 2005-05-07 Completed [facility] Vaccine - Whole 00:00:00 [facility] Influenza Virus 2005-05-07 Completed [facility] Vaccine - Whole 00:00:00 [facility] Influenza Virus 2005-05-07 Completed [facility] Vaccine - Whole 00:00:00 [facility] Influenza Virus 2005-05-07 Completed [facility] Vaccine - Whole 00:00:00 [facility] Influenza Virus 2005-05-07 Completed [facility] Vaccine - Whole 00:00:00 [facility] Influenza Virus 2005-05-07 Completed [facility] Vaccine - Whole 00:00:00 [facility] Influenza Virus 2005-05-07 Completed [facility] Vaccine - Whole 00:00:00 [facility] Influenza Virus 2005-05-07 Completed [facility] Vaccine - Whole 00:00:00 [facility] Influenza Virus 2005-05-07 Completed [facility] Vaccine - Whole 00:00:00 [facility] Influenza Virus 2005-05-07 Completed [facility] Vaccine - Whole 00:00:00 [facility] HIB 4 Dose Schedule 2004-01-31 Completed [facility] of 00:00:00 [facility] Hep B, Adol or Pedi 2004-01-31 Completed [facility] rs[facility] of Dosage 00:00:00 [facility] Pediarix (dtap/hep 2004-01-31 Completed Univer [facility] of B/ipv) 00:00:00 [facility] HIB 4 Dose Schedule 2004-01-31 Completed [facility] of 00:00:00 [facility] Hep B, Adol or Pedi 2004-01-31 Completed [facility] of Dosage 00:00:00 [facility] Pediarix (dtap/hep 2004-01-31 Completed [facility]iver [facility] of B/ipv) 00:00:00 [facility] HIB 4 Dose Schedule 2004-01-31 Completed [facility] of 00:00:00 [facility] Hep B, Adol or Pedi 2004-01-31 Completed [facility] rs[facility] of Dosage 00:00:00 [facility] Pediarix (dtap/hep 2004-01-31 Completed Univer sity [...] 2004-01-31 Completed [facility] of B/ipv) 00:00:00 [facility] HIB 4 Dose Schedule 2004-01-31 Completed [facility] 00:00:00 [facility] Hep B, Adol or Pedi 2004-01-31 Completed [facility] rs[facility] of Dosage 00:00:00 [facility] Pediarix (dtap/hep 2004-01-31 Completed Univer sity of B/ipv) 00:00:00 [facility] HIB 4 Dose Schedule 2004-01-31 Completed [facility] of 00:00:00 [facility] Hep B, Adol or Pedi 2004-01-31 Completed [facility] rs[facility] of Dosage 00:00:00 [facility] Pediarix (dtap/hep 2004-01-31 Completed [facility]iver [facility] of B/ipv) 00:00:00 [facility] HIB 4 Dose Schedule 2004-01-31 Completed [facility] of 00:00:00 [facility] Hep B, Adol or Pedi 2004-01-31 Completed [facility] rs[facility] of Dosage 00:00:00 [facility] Pediarix (dtap/hep 2004-01-31 Completed [facility]iver [facility] of B/ipv) 00:00:00 [facility] HIB 4 Dose Schedule 2004-01-31 Completed [facility] of 00:00:00 [facility] Hep B, Adol or Pedi 2004-01-31 Completed [facility] of Dosage 00:00:00 [facility] Pediarix (dtap/hep 2004-01-31 Completed [facility]iver [facility] of B/ipv) 00:00:00 [facility] HIB 4 Dose Schedule 2004-01-31 Completed [...] 2004-01-31 Completed [facility] of B/ipv) 00:00:00 [facility] HIB 4 Dose Schedule 2004-01-31 Completed [facility] of 00:00:00 [facility] Hep B, Adol or Pedi 2004-01-31 Completed [facility] of Dosage 00:00:00 [facility] Pediarix (dtap/hep 2004-01-31 Completed [facility]iver [facility] of B/ipv) 00:00:00 [facility] HIB 4 Dose Schedule 2004-01-31 Completed [facility] of 00:00:00 [facility] Hep B, Adol or Pedi 2004-01-31 Completed [facility] of Dosage 00:00:00 [facility] Pediarix (dtap/hep 2004-01-31 Completed [facility]iver [facility] of B/ipv) 00:00:00 [facility] HIB 4 Dose Schedule 2004-01-31 Completed [facility] 00:00:00 [facility] Hep B, Adol or Pedi 2004-01-31 Completed [facility] of Dosage 00:00:00 [facility] Pediarix (dtap/hep 2004-01-31 Completed [facility] of B/ipv) 00:00:00 [facility] HIB 4 Dose Schedule 2004-01-31 Completed [facility] 00:00:00 [facility] Hep B, Adol or Pedi 2004-01-31 Completed [facility] of Dosage 00:00:00 [facility] Pediarix (dtap/hep 2004-01-31 Completed [facility] of B/ipv) 00:00:00 [facility] HIB 4 Dose Schedule 2004-01-31 Completed [facility] of 00:00:00 [facility] Hep B, Adol or Pedi 2004-01-31 Completed [facility] of Dosage 00:00:00 [facility] Pediarix (dtap/hep 2004-01-31 Completed [facility] of B/ipv) 00:00:00 [facility] HIB 4 Dose Schedule 2004-01-31 Completed [...] [facility]iver [facility] of B/ipv) 00:00:00 [facility] HIB 4 Dose Schedule 2004-01-31 Completed Unive [...] 2004-01-31 Completed [facility] of B/ipv) 00:00:00 [facility] HIB 4 Dose Schedule 2004-01-31 Completed [facility] of 00:00:00 [facility] Hep B, Adol or Pedi 2004-01-31 Completed [facility] of Dosage 00:00:00 [facility] Pediarix (dtap/hep 2004-01-31 Completed [facility]iver [facility] of B/ipv) 00:00:00 [facility] HIB 4 Dose Schedule 2004-01-31 Completed [...] [facility]iver [facility] of B/ipv) 00:00:00 [facility] HIB 4 Dose Schedule 2004-01-31 Completed Unive [...] 2004-01-31 Completed [facility] of Dosage 00:00:00 [facility] HIB 4 Dose Schedule 2004-01-31 Completed [facility] 00:00:00 [facility] Hep B, Adol or Pedi 2004-01-31 Completed [facility] Dosage 00:00:00 [facility] Pediarix (dtap/hep 2004-01-31 Completed [facility] of B/ipv) 00:00:00 [facility] Pediarix (dtap/hep 2004-01-31 Completed [facility] of B/ipv) 00:00:00 [facility] HIB 4 Dose Schedule 2004-01-31 Completed [facility] 00:00:00 [facility] Hep B, Adol or Pedi 2004-01-31 Completed [facility] of Dosage 00:00:00 [facility] Pediarix (dtap/hep 2004-01-31 Completed [facility] of B/ipv) 00:00:00 [facility] Influenza Virus Unknown Completed [facility] Influenza Virus Unknown Completed [facility] HPV [facility] Completed [facility] HPV9 Unknown Com[facility] [facility] HPV9 Unknown Completed [facility] Influenza Virus Unknown Completed [facility] Influenza Virus Unknown Completed [facility] HPV Unknown [facility]pleted [facility] HPV9 Unknown Completed [facility] HPV9 Unknown Completed [facility] Influenza Virus Unknown Completed [facility] Influenza [facility] Unknown Completed [facility] HPV Unknown Completed [facility] HPV9 Unknown Completed [facility] HPV9 Unknown Completed [facility] Influenza Virus Unknown Completed [facility] Influenza [facility] Unknown Completed [facility] HPV Unknown Completed [facility] HPV9 Unknown Completed [facility] HPV9 Unknown Completed [facility] Influenza [facility] Unknown Completed [facility] Influenza [facility] Unknown [facility]pleted [facility] HPV Unknown Completed [facility] HPV9 Unknown Completed [facility] HPV9 Unknown Completed [facility] Influenza Virus Unknown Completed [facility] Influenza [facility] Unknown [facility]pleted [facility] HPV Unknown Completed [facility] HPV9 Unknown Completed [facility] HPV9 Unknown Completed [facility] Influenza [facility] Unknown Completed [facility] Influenza [facility] Unknown [facility]pleted [facility] HPV Unknown Completed [facility] HPV9 Unknown Completed [facility] HPV9 Unknown Completed [facility] Influenza Virus Unknown Completed [facility] Influenza [facility] Unknown [facility]pleted [facility] HPV Unknown Completed [facility] HPV9 Unknown Completed [facility] HPV9 Unknown Completed [facility] Influenza Virus Unknown Completed [facility] Influenza [facility] Unknown Completed [facility] HPV Unknown Completed [facility] HPV9 Unknown Completed [facility] HPV9 Unknown Completed [facility] Influenza [facility] Unknown Completed [facility] Influenza [facility] Unknown [facility]pleted [facility] HPV Unknown Completed [facility] HPV9 Unknown Completed [facility] HPV9 Unknown Completed [facility] Influenza Virus Unknown Completed [facility] Influenza [facility] Unknown Completed [facility] HPV Unknown Completed [facility] HPV9 Unknown Completed [facility] HPV9 Unknown Completed [facility] Vital Signs Vital Name Observation Time Observation Value Comments Source Systolic blood 2023-05-31 19:40:00 129 mm[Hg] Univer sity of pressure [facility] Diastolic blood 2023-05-31 19:40:00 81 mm[Hg] Unive rsity of pressure [facility] Heart rate 2023-05-31 19:40:00 81 /min [facility] Body temperature 2023-05-31 19:40:00 37.06 [place] [facility] rate 2023-05-31 19:40:00 18 /min [facility] Oxygen saturation in 2023-05-31 19:40:00 97 /min [facility] Arterial blood by [facility] Pulse oximetry [place] Body height 2023-05-31 17:58:00 172.7 cm [facility] Body weight 2023-05-31 17:58:00 83.915 kg [facility] BMI 2023-05-31 17:58:00 28.13 kg/m2 [facility] Systolic blood 2023-05-29 00:39:00 141 mm[Hg] Univer sity of pressure [facility] Diastolic blood 2023-05-29 00:39:00 86 mm[Hg] Unive rsity of pressure [facility] Heart rate 2023-05-29 00:39:00 84 /min [facility] Body temperature 2023-05-29 00:39:00 37.22 [place] [facility] Respiratory rate 2023-05-29 00:39:00 16 /min [facility] Body height 2023-05-29 00:39:00 172.7 cm [facility] Body weight 2023-05-29 00:39:00 83.915 kg [facility] BMI 2023-05-29 00:39:00 28.13 kg/m2 [facility] Oxygen saturation in 2023-05-29 00:39:00 100 /min [facility] Arterial blood by [place] [facility] Pulse oximetry Branch Systolic blood 2023-05-06 15:07:00 129 mm[Hg] Univer [facility]ity of pressure [facility] Diastolic blood 2023-05-06 15:07:00 78 mm[Hg] Unive rsity of pressure [facility] Heart rate 2023-05-06 15:07:00 69 /min [facility] Respiratory rate 2023-05-06 15:07:00 20 /min [facility] Body height 2023-05-06 15:07:00 172.7 cm [facility] Body weight 2023-05-06 15:07:00 85.548 kg [facility] BMI 2023-05-06 15:07:00 28.68 kg/m2 [facility] Oxygen saturation in 2023-05-06 15:07:00 97 /min [facility] Arterial blood by [employer] cherie Pulse oximetry Branch Systolic blood 2023-03-20 05:34:00 123 mm[Hg] Univer [facility]ity of pressure [facility] Diastolic blood 2023-03-20 05:34:00 75 mm[Hg] Unive rsity of pressure [facility] Heart rate 2023-03-20 05:34:00 88 /min [facility] Respiratory rate 2023-03-20 05:34:00 17 /min [facility] Oxygen saturation in 2023-03-20 05:34:00 97 /min [facility] blood by [place] [facility] P[facility] o[facility] Body temperature 2023-03-20 03:18:00 37.06 [place] [facility] Body weight 2023-03-20 03:18:00 83.915 kg [facility] BMI 2023-03-20 03:18:00 28.13 kg/m2 [facility] Body weight 2023-03-18 18:27:00 83.915 kg [facility] BMI 2023-03-18 18:27:00 28.13 kg/m2 [facility] Systolic blood 2023-03-18 18:00:00 133 mm[Hg] Univer sity of pressure [facility] Diastolic blood 2023-03-18 18:00:00 86 mm[Hg] Unive rsity of pressure [facility] Heart rate 2023-03-18 18:00:00 95 /min [facility] Body temperature 2023-03-18 18:00:00 37 [place] [facility] Respiratory rate 2023-03-18 18:00:00 16 /min [facility] Body height 2023-03-18 18:00:00 172.7 cm [facility] Oxygen saturation in 2023-03-18 18:00:00 99 /min [facility] Arterial blood by [facility] cherie Pulse oximetry Branch Systolic blood 2023-03-10 01:30:00 123 mm[Hg] Univer sity of pressure [facility] Diastolic blood 2023-03-10 01:30:00 84 mm[Hg] Unive rsity of pressure [facility] Heart rate 2023-03-10 01:30:00 76 /min [facility] Respiratory rate 2023-03-10 01:30:00 18 /min [facility] Oxygen saturation in 2023-03-10 01:30:00 99 /min [facility] by [place] [facility] Pulse oxim[facility] Body temperature 2023-03-09 21:54:00 37 [place] [facility] Body weight 2023-03-09 21:54:00 83.915 kg [facility] BMI 2023-03-09 21:54:00 28.13 kg/m2 [facility] Systolic blood 2023-03-04 00:00:00 121 mm[Hg] Univer sity of pressure [facility] Diastolic blood 2023-03-04 00:00:00 81 mm[Hg] Unive rsity of pressure [facility] Heart rate 2023-03-04 00:00:00 86 /min [facility] Respiratory rate 2023-03-04 00:00:00 20 /min [facility] Oxygen saturation in 2023-03-04 00:00:00 95 /min [facility] Arterial blood by [employer] Pulse oximetry Branch Body temperature 2023-03-03 18:40:00 36.72 [place] [facility] Body height 2023-03-03 18:40:00 172.7 cm [facility] Body weight 2023-03-03 18:40:00 83.915 kg [facility] BMI 2023-03-03 18:40:00 28.13 kg/m2 [facility] Body height 2023-03-02 18:20:00 172.7 cm [facility] Body weight 2023-03-02 18:20:00 82.555 kg [facility] BMI 2023-03-02 18:20:00 27.67 kg/m2 [facility] Systolic blood 2023-02-23 14:45:00 125 mm[Hg] Univer sity of pressure [facility] Diastolic blood 2023-02-23 14:45:00 84 mm[Hg] Unive rsity of pressure [facility] Respiratory rate 2023-02-23 14:45:00 19 /min [facility] Oxygen saturation in 2023-02-23 14:45:00 94 /min [facility] Arterial blood by [employer] Pulse oximetry Branch Systolic blood 2023-02-23 14:45:00 125 mm[Hg] Univer sity of pressure [facility] Diastolic blood 2023-02-23 14:45:00 84 mm[Hg] Unive rsity of pressure [facility] Respiratory rate 2023-02-23 14:45:00 19 /min [facility] Oxygen saturation in 2023-02-23 14:45:00 94 /min [facility] Arterial blood by [facility] cherie Pulse oximetry Branch Systolic blood 2023-02-22 15:10:00 122 mm[Hg] Univer sity of pressure [facility] Diastolic blood 2023-02-22 15:10:00 79 mm[Hg] Unive rsity of pressure [facility] Heart rate 2023-02-22 15:10:00 73 /min [facility] Respiratory rate 2023-02-22 15:10:00 19 /min [facility] Body height 2023-02-22 15:10:00 172.7 cm [facility] Body weight 2023-02-22 15:10:00 82.872 kg [facility] BMI 2023-02-22 15:10:00 27.78 kg/m2 [facility] Oxygen saturation in 2023-02-22 15:10:00 97 /min [facility] Arterial blood by [facility] Pulse oximetry Branch Systolic blood 2023-02-09 19:28:00 120 mm[Hg] Univer sity of pressure [facility] Diastolic blood 2023-02-09 19:28:00 81 mm[Hg] Unive rsity of pressure [facility] Heart rate 2023-02-09 19:28:00 80 /min [facility] Body height 2023-02-09 19:28:00 172.7 cm [facility] Body weight 2023-02-09 19:28:00 84.55 kg [facility] BMI 2023-02-09 19:28:00 28.34 kg/m2 [facility] Systolic blood 2023-02-01 18:22:00 134 mm[Hg] Univer sity of pressure [facility] Diastolic blood 2023-02-01 18:22:00 84 mm[Hg] Unive rsity of pressure [facility] Heart rate 2023-02-01 18:22:00 85 /min [facility] Body height 2023-02-01 18:22:00 172.7 cm [facility] Body weight 2023-02-01 18:22:00 83.961 kg [facility] BMI 2023-02-01 18:22:00 28.14 kg/m2 [facility] Systolic blood 2023-02-01 06:44:00 131 mm[Hg] Univer sity of pressure [facility] Diastolic blood 2023-02-01 06:44:00 78 mm[Hg] Unive rsity of pressure [facility] Heart rate 2023-02-01 06:44:00 96 /min [facility] Respiratory rate 2023-02-01 06:44:00 22 /min [facility] Oxygen saturation in 2023-02-01 06:44:00 98 /min [facility] Arterial blood by [place] [facility] Pulse oximetry [facility] Body temperature 2023-02-01 03:25:00 36.78 [place] [facility] Body height 2023-02-01 03:25:00 172.7 cm [facility] Body weight 2023-02-01 03:25:00 83.915 kg [facility] BMI 2023-02-01 03:25:00 28.13 kg/m2 [facility] Systolic blood 2023-01-28 20:10:00 130 mm[Hg] Univer sity of pressure [facility] Diastolic blood 2023-01-28 20:10:00 83 mm[Hg] Unive rsity of pressure [facility] Heart rate 2023-01-28 20:10:00 78 /min [facility] Body height 2023-01-28 20:10:00 172.7 cm [facility] Body weight 2023-01-28 20:10:00 84.959 kg [facility] BMI 2023-01-28 20:10:00 28.48 kg/m2 [facility] Oxygen saturation in 2023-01-28 20:10:00 100 /min [facility] Arterial blood by [employer] [facility] Pulse oximetry Branch Systolic blood 2023-01-21 02:45:00 124 mm[Hg] Univer sity of pressure [facility] Diastolic blood 2023-01-21 02:45:00 84 mm[Hg] Unive rsity of pressure [facility] Heart rate 2023-01-21 02:45:00 87 /min [facility] Body temperature 2023-01-21 02:45:00 37.11 [place] [facility] Respiratory rate 2023-01-21 02:45:00 16 /min [facility] Body height 2023-01-21 02:45:00 172.7 cm [facility] Body weight 2023-01-21 02:45:00 83.915 kg [facility] BMI 2023-01-21 02:45:00 28.13 kg/m2 [facility] Oxygen saturation in 2023-01-21 02:45:00 98 /min [facility] Arterial blood by [facility] Pulse oximetry Branch Systolic blood 2023-01-18 17:57:00 111 mm[Hg] Univer sity of pressure [facility] Diastolic blood 2023-01-18 17:57:00 74 mm[Hg] Unive rsity of pressure [facility] Respiratory rate 2023-01-18 17:57:00 16 /min [facility] Oxygen saturation in 2023-01-18 17:57:00 99 /min [facility] Arterial blood by [facility] Pulse oximetry Branch Body temperature 2023-01-18 17:16:00 36.22 [place] [facility] Heart rate 2023-01-18 16:40:00 67 /min [facility] Systolic blood 2023-01-18 17:16:00 106 mm[Hg] Univer sity of pressure [facility] Diastolic blood 2023-01-18 17:16:00 63 mm[Hg] Unive rsity of pressure [facility] Body temperature 2023-01-18 17:16:00 36.22 [place] [facility] Respiratory rate 2023-01-18 17:16:00 15 /min [facility] Oxygen saturation in 2023-01-18 17:16:00 98 /min [facility] Arterial blood by [facility] Pulse oximetry Branch Heart rate 2023-01-18 16:40:00 67 /min [facility] Systolic blood 2023-01-13 18:00:00 124 mm[Hg] Univer sity of pressure [facility] Diastolic blood 2023-01-13 18:00:00 81 mm[Hg] Unive rsity of pressure [facility] Heart rate 2023-01-13 18:00:00 88 /min [facility] Body height 2023-01-13 18:00:00 172.7 cm [facility] Body weight 2023-01-13 18:00:00 83.734 kg [facility] BMI 2023-01-13 18:00:00 28.07 kg/m2 [facility] Systolic blood 2023-01-08 19:52:00 146 mm[Hg] Univer sity of pressure [facility] Diastolic blood 2023-01-08 19:52:00 90 mm[Hg] Unive rsity of [facility] Heart rate 2023-01-08 19:52:00 89 /min [facility] Body temperature 2023-01-08 19:52:00 37.22 [place] [facility] Respiratory rate 2023-01-08 19:52:00 22 /min Univ [facility] of [facility] Body height 2023-01-08 19:52:00 172.7 cm [facility] Body weight 2023-01-08 19:52:00 83.915 kg [facility] BMI 2023-01-08 19:52:00 28.13 kg/m2 [facility] Oxygen saturation in 2023-01-08 19:52:00 100 /min University Arterial blood by [facility] Pulse oximetry Branch Systolic blood 2022-12-21 13:55:00 137 mm[Hg] Univer sity of pressure [facility] Diastolic blood 2022-12-21 13:55:00 85 mm[Hg] Unive rsity of pressure [facility] Heart rate 2022-12-21 13:55:00 83 /min [facility] Body height 2022-12-21 13:55:00 172.7 cm [facility] Body weight 2022-12-21 13:55:00 84.732 kg [facility] BMI 2022-12-21 13:55:00 28.40 kg/m2 [facility] Oxygen saturation in 2022-12-21 13:55:00 97 /min [facility] Arterial blood by [facility] Pulse oximetry Branch Systolic blood 2022-12-07 02:48:00 132 mm[Hg] Univer sity of pressure [facility] Diastolic blood 2022-12-07 02:48:00 88 mm[Hg] Unive rsity of pressure [facility] Heart rate 2022-12-07 02:48:00 84 /min [facility] Body temperature 2022-12-07 02:48:00 37.22 [place] [facility] Respiratory rate 2022-12-07 02:48:00 18 /min [facility] Body height 2022-12-07 02:48:00 170.2 cm [facility] Body weight 2022-12-07 02:48:00 83.915 kg [facility] BMI 2022-12-07 02:48:00 28.98 kg/m2 [facility] Oxygen saturation in 2022-12-07 02:48:00 98 /min [facility] Arterial blood by [facility] Pulse oximetry Branch Systolic blood 2022-12-03 17:55:00 124 mm[Hg] Univer sity of pressure [facility] Diastolic blood 2022-12-03 17:55:00 77 mm[Hg] Unive rsity of pressure [facility] Heart rate 2022-12-03 17:55:00 78 /min [facility] Body temperature 2022-12-03 17:55:00 36 [place] [facility] Body height 2022-12-03 17:55:00 172.7 cm [facility] Body weight 2022-12-03 17:55:00 85.049 kg [facility] BMI 2022-12-03 17:55:00 28.51 kg/m2 [facility] Body height 2022-11-26 18:04:00 172.7 cm [facility] Body weight 2022-11-26 18:04:00 83.915 kg [facility]i ty of [facility] BMI 2022-11-26 18:04:00 28.13 kg/m2 [facility] of [facility] Body mass index 2022-11-26 18:04:00 91.75 % Unive rsity of (BMI) [Percentile] [place] [facility] Systolic blood 2022-11-19 16:10:00 135 mm[Hg] Univer sity of pressure [facility] Diastolic blood 2022-11-19 16:10:00 88 mm[Hg] Unive rsity of pressure [facility] Heart rate 2022-11-19 16:10:00 80 /min Universi ty of [facility] Body height 2022-11-19 16:10:00 172.7 cm [facility]i [facility] of [facility] Body weight 2022-11-19 16:10:00 86.047 kg [facility]i [facility] of [facility] BMI 2022-11-19 16:10:00 28.84 kg/m2 [facility] of [facility] Body mass index 2022-11-19 16:10:00 93.48 % Unive rsity of (BMI) [Percentile] [place] [facility] Oxygen saturation in 2022-11-19 16:10:00 97 /min [facility] Arterial blood by [facility] Pulse oximetry Branch Systolic blood 2022-11-17 17:53:00 101 mm[Hg] Univer sity of pressure [facility] Diastolic blood 2022-11-17 17:53:00 63 mm[Hg] Unive rsity of pressure [facility] Heart rate 2022-11-17 17:53:00 81 /min [facility]i ty of [facility] Body temperature 2022-11-17 17:53:00 36.5 [place] Univ ersity of [facility] Body height 2022-11-17 17:53:00 172.7 cm [facility]i ty of [facility] Body weight 2022-11-17 17:53:00 86.183 kg [facility]i [facility] of [facility] BMI 2022-11-17 17:53:00 28.89 kg/m2 [facility] of [facility] Body mass index 2022-11-17 17:53:00 93.59 % Unive rsity of (BMI) [Percentile] [place] [facility] Systolic blood 2022-11-16 14:15:00 127 mm[Hg] Univer sity of pressure [facility] Diastolic blood 2022-11-16 14:15:00 78 mm[Hg] Unive rsity of pressure [facility] Heart rate 2022-11-16 14:15:00 78 /min [facility] Respiratory rate 2022-11-16 14:15:00 19 /min [facility] Body height 2022-11-16 14:15:00 172.7 cm [facility] Body weight 2022-11-16 14:15:00 86.274 kg [facility] BMI 2022-11-16 14:15:00 28.92 kg/m2 [facility] Body mass index 2022-11-16 14:15:00 93.66 % Unive rsity of (BMI) [Percentile] [place] [facility] Oxygen saturation in 2022-11-16 14:15:00 96 /min [facility] Arterial blood by [facility] Pulse oximetry Branch Heart rate 2022-11-13 05:05:00 86 /min [facility] Respiratory rate 2022-11-13 05:05:00 16 /min Univ ersity of [facility] Oxygen saturation in 2022-11-13 05:05:00 100 /min [facility] Arterial blood by [facility] Pulse oximetry Branch Systolic blood 2022-11-13 02:41:00 124 mm[Hg] Univer sity of pressure [facility] Diastolic blood 2022-11-13 02:41:00 85 mm[Hg] Unive rsity of pressure [facility] Body temperature 2022-11-13 02:41:00 37.11 [place] [facility] Body height 2022-11-13 02:41:00 172.7 cm [facility] Body weight 2022-11-13 02:41:00 85.73 kg [facility] BMI 2022-11-13 02:41:00 28.74 kg/m2 [facility] Body mass index 2022-11-13 02:41:00 93.30 % Unive rsity of (BMI) [Percentile] [place] [facility] Systolic blood 2022-11-03 14:32:00 127 mm[Hg] Univer sity of pressure [facility] Diastolic blood 2022-11-03 14:32:00 82 mm[Hg] Unive rsity of pressure [facility] Heart rate 2022-11-03 14:32:00 87 /min [facility]i ty of [facility] Body temperature 2022-11-03 14:32:00 36.83 [place] Univ [facility] of [facility] Respiratory rate 2022-11-03 14:32:00 18 /min Univ ers[facility] of [facility] Body height 2022-11-03 14:32:00 172.7 cm [facility]i ty of [facility] Body weight 2022-11-03 14:32:00 85.322 kg [facility] [place] BMI 2022-11-03 14:32:00 28.60 kg/m2 [facility]i [facility] of [facility] Body mass index 2022-11-03 14:32:00 93.03 % Unive rsity of (BMI) [Percentile] [place] [facility] Oxygen saturation in 2022-11-03 14:32:00 98 /min [facility] Arterial blood by [place] [facility] Pulse oximetry [facility] Systolic blood 2022-10-29 12:12:00 113 mm[Hg] Univer sity of pressure [facility] Diastolic blood 2022-10-29 12:12:00 68 mm[Hg] Unive rsity of pressure [facility] Heart rate 2022-10-29 12:12:00 98 /min Universi ty of [facility] Body temperature 2022-10-29 12:12:00 36.83 [place] [facility] Respiratory rate 2022-10-29 12:12:00 15 /min Univ ersity of [facility] Oxygen saturation in 2022-10-29 12:12:00 97 /min [facility] Arterial blood by [employer] [facility] Pulse oximetry Branch Body weight 2022-10-29 07:58:00 83.915 kg [facility] BMI 2022-10-29 07:58:00 28.13 kg/m2 [facility] Body mass index 2022-10-29 07:58:00 91.90 % Unive rsity of (BMI) [Percentile] [place] [facility] sex [facility] Systolic blood 2022-10-28 02:00:00 128 mm[Hg] [facility] Diastolic blood 2022-10-28 02:00:00 77 mm[Hg] [facility] Heart rate 2022-10-28 02:00:00 71 /min [facility] Respiratory rate 2022-10-28 02:00:00 17 /min [facility] Oxygen saturation in 2022-10-28 02:00:00 97 /min [facility] of Arterial blood by [place] cherie Pulse oximetry Branch Body temperature 2022-10-28 00:46:00 36.89 [place] [facility] Body height 2022-10-28 00:46:00 172.7 cm [facility] Body weight 2022-10-28 00:46:00 83.915 kg [facility] BMI 2022-10-28 00:46:00 28.13 kg/m2 [facility] Body mass index 2022-10-28 00:46:00 91.92 % Unive rsity of (BMI) [Percentile] [place] [facility] Per [facility] sex [facility] Systolic blood 2022-10-20 22:00:00 116 mm[Hg] [facility] Diastolic blood 2022-10-20 22:00:00 81 mm[Hg] [facility] Heart rate 2022-10-20 22:00:00 91 /min [facility] Respiratory rate 2022-10-20 22:00:00 16 /min [facility] Oxygen saturation in 2022-10-20 22:00:00 98 /min [facility] Arterial blood by [place] [facility] cherie Pulse oximetry Branch Body temperature 2022-10-20 19:24:00 37.22 [place] [facility] Body height 2022-10-20 19:24:00 172.7 cm [facility] Body weight 2022-10-20 19:24:00 83.915 kg [facility] BMI 2022-10-20 19:24:00 28.13 kg/m2 [facility] [place] Body mass index 2022-10-20 19:24:00 91.95 % Unive rsity of (BMI) [Percentile] [place] [facility] Per [facility] sex [facility] Systolic blood 2022-10-09 06:00:00 123 mm[Hg] [facility] Diastolic blood 2022-10-09 06:00:00 74 mm[Hg] Unive rsity of pressure [facility] Heart rate 2022-10-09 06:00:00 74 /min [facility] Respiratory rate 2022-10-09 06:00:00 16 /min [facility] Oxygen saturation in 2022-10-09 06:00:00 96 /min [facility] Arterial blood by [facility] Pulse oximetry Branch Body temperature 2022-10-09 03:45:00 37.11 [place] [facility] Body height 2022-10-09 03:45:00 172.7 cm [facility] Body weight 2022-10-09 03:45:00 83.099 kg [facility] BMI 2022-10-09 03:45:00 27.86 kg/m2 [facility] Body mass index 2022-10-09 03:45:00 91.28 % Unive rsity of (BMI) [Percentile] [place] [facility] Per [facility] sex [facility] Systolic blood 2022-09-15 13:33:00 125 mm[Hg] Univer sity of pressure [facility] Diastolic blood 2022-09-15 13:33:00 84 mm[Hg] Unive rsity of pressure [facility] Heart rate 2022-09-15 13:33:00 78 /min [facility] Body temperature 2022-09-15 13:33:00 36.78 [place] [facility] Body height 2022-09-15 13:33:00 170.2 cm [facility] Body weight 2022-09-15 13:33:00 83.825 kg [facility] BMI 2022-09-15 13:33:00 28.94 kg/m2 [facility] Body mass index 2022-09-15 13:33:00 93.96 % Unive rsity of (BMI) [Percentile] [place] [facility] Per [facility] sex [facility] Systolic blood 2022-08-19 14:06:00 127 mm[Hg] [facility] Diastolic blood 2022-08-19 14:06:00 85 mm[Hg] [facility] Heart rate 2022-08-19 14:06:00 93 /min [facility] Body height 2022-08-19 14:06:00 170.2 cm [facility] Body weight 2022-08-19 14:06:00 83.19 kg [facility] BMI 2022-08-19 14:06:00 28.72 kg/m2 [facility] Body mass index 2022-08-19 14:06:00 93.64 % Unive rsity of (BMI) [Percentile] [place] [facility] Per [facility] sex [facility] Oxygen saturation in 2022-08-19 14:06:00 97 /min [facility] Arterial blood by [facility] Pulse oximetry Branch Systolic blood 2022-08-18 16:31:00 115 mm[Hg] [facility] Diastolic blood 2022-08-18 16:31:00 76 mm[Hg] [facility] Heart rate 2022-08-18 16:31:00 80 /min [facility] Respiratory rate 2022-08-18 16:31:00 18 /min [facility] Body weight 2022-08-18 16:31:00 85.078 kg [facility] Oxygen saturation in 2022-08-18 16:31:00 95 /min [facility] Arterial blood by [facility] cherie Pulse oximetry Branch Systolic blood 2022-07-13 02:06:00 134 mm[Hg] [facility] Diastolic blood 2022-07-13 02:06:00 83 mm[Hg] [facility] Heart rate 2022-07-13 02:06:00 108 /min [facility] Body temperature 2022-07-13 02:06:00 37 [place] [facility] Respiratory rate 2022-07-13 02:06:00 18 /min [facility] Body height 2022-07-13 02:06:00 172.7 cm [facility] Body weight 2022-07-13 02:06:00 83.915 kg [facility] BMI 2022-07-13 02:06:00 28.13 kg/m2 [facility] Body mass index 2022-07-13 02:06:00 92.48 % Unive rsity of (BMI) [Percentile] [place] [facility] Per [facility] sex [facility] Oxygen saturation in 2022-07-13 02:06:00 99 /min [facility] Arterial blood by [place] [facility] cherie Pulse oximetry Branch Systolic blood 2022-06-22 14:59:00 122 mm[Hg] [facility] Diastolic blood 2022-06-22 14:59:00 83 mm[Hg] [facility] Heart rate 2022-06-22 14:59:00 89 /min [facility] Respiratory rate 2022-06-22 14:59:00 19 /min [facility] Body height 2022-06-22 14:59:00 172.7 cm [facility] Body weight 2022-06-22 14:59:00 83.462 kg [facility] BMI 2022-06-22 14:59:00 27.98 kg/m2 [facility] Body mass index 2022-06-22 14:59:00 92.21 % Unive rsity of (BMI) [Percentile] [place] [facility] Per [facility] sex [facility] Oxygen saturation in 2022-06-22 14:59:00 96 /min [facility] Arterial blood by [place] [facility] cherie Pulse oximetry Branch Systolic blood 2022-06-21 09:30:00 99 mm[Hg] [facility] Diastolic blood 2022-06-21 09:30:00 69 mm[Hg] [facility] Heart rate 2022-06-21 09:30:00 94 /min [facility] Respiratory rate 2022-06-21 09:30:00 20 /min [facility] Oxygen saturation in 2022-06-21 09:30:00 96 /min [facility] blood by [place] [facility] Pulse oximetry Branch Body temperature 2022-06-21 04:01:00 37.11 [place] [facility] Body height 2022-06-21 04:01:00 172.7 cm [facility] Body weight 2022-06-21 04:01:00 83.915 kg [facility] BMI 2022-06-21 04:01:00 28.13 kg/m2 [facility] ty [facility] Body mass index 2022-06-21 04:01:00 92.59 % Unive rsity of (BMI) [Percentile] [facility] ica Per age and sex Branch Systolic blood 2022-06-17 04:30:00 126 mm[Hg] Univer sity of pressure [facility] Diastolic blood 2022-06-17 04:30:00 76 mm[Hg] Unive rsity of pressure [facility] Heart rate 2022-06-17 04:30:00 125 /min [facility] Respiratory rate 2022-06-17 04:30:00 20 /min [facility] Oxygen saturation in 2022-06-17 04:30:00 100 /min [facility] Arterial blood by [facility] Pulse oximetry Branch Body temperature 2022-06-16 23:56:00 37.44 [place] [facility] Body weight 2022-06-16 21:02:00 82.101 kg [facility] Systolic blood 2022-05-29 07:01:00 116 mm[Hg] Univer [facility]ity of pressure [facility] Diastolic blood 2022-05-29 07:01:00 64 mm[Hg] Unive rsity of pressure [facility] Heart rate 2022-05-29 07:01:00 116 /min [facility] Respiratory rate 2022-05-29 07:01:00 18 /min [facility] Oxygen saturation in 2022-05-29 07:01:00 97 /min [facility]ial blood by [place] [facility] [facility] Pulse oximetry Branch Body temperature 2022-05-29 01:29:00 36.94 [place] [facility] Body height 2022-05-29 01:29:00 172.7 cm [facility] Body weight 2022-05-29 01:29:00 79.334 kg [facility] BMI 2022-05-29 01:29:00 26.59 kg/m2 [facility] Body mass index 2022-05-29 01:29:00 87.81 % Unive rsity of (BMI) [Percentile] [place] [facility] HEIGHT 2022-04-08 13:03:00 172.7 cm WEIGHT 2022-04-08 13:03:00 82.01 kg HEIGHT 2022-04-08 13:03:00 172.7 cm WEIGHT 2022-04-08 13:03:00 82.01 kg Systolic blood 2019-03-01 16:13:00 133 mm[Hg] Univer sity of pressure [facility] Diastolic blood 2019-03-01 16:13:00 77 mm[Hg] Unive rsity of pressure [facility] Heart rate 2019-03-01 16:13:00 76 /min [facility] Body temperature 2019-03-01 16:13:00 36.89 [place] [facility] Respiratory rate 2019-03-01 16:13:00 20 /min [facility] Body height 2019-03-01 16:13:00 168.1 cm [facility] Body weight 2019-03-01 16:13:00 58.3 kg [facility] BMI 2019-03-01 16:13:00 20.63 kg/m2 [facility] Systolic blood 2019-03-01 16:13:00 133 mm[Hg] Univer sity of pressure [facility] Diastolic blood 2019-03-01 16:13:00 77 mm[Hg] Unive rsity of pressure [facility] Heart rate 2019-03-01 16:13:00 76 /min [facility] Body temperature 2019-03-01 16:13:00 36.89 [place] [facility] Respiratory rate 2019-03-01 16:13:00 20 /min [facility] Body height 2019-03-01 16:13:00 168.1 cm [facility] Body weight 2019-03-01 16:13:00 58.3 kg Universi [facility] BMI 2019-03-01 16:13:00 20.63 kg/m2 Universi ty [facility] Systolic blood 2018-03-08 19:32:00 127 mm[Hg] Univer sity of pressure [facility] Diastolic blood 2018-03-08 19:32:00 84 mm[Hg] Unive rsity of [facility] Heart rate 2018-03-08 19:32:00 92 /min Universi [facility] Body temperature 2018-03-08 19:32:00 36.67 [place] Univ [facility] Body height 2018-03-08 19:32:00 166.1 cm Universi [facility] Body weight 2018-03-08 19:32:00 [facility] BMI 2018-03-08 19:32:00 [facility] 2022-04-08 13:03:00 125 mm[Hg] [facility] Diastolic blood 2022-04-08 13:03:00 82 mm[Hg] [facility] S t [facility] Heart rate 2022-04-08 13:03:00 80 /min [facility] Body temperature 2022-04-08 13:03:00 37.11 [place] [facility] Body height 2022-04-08 13:03:00 172.7 cm [facility] Body weight 2022-04-08 13:03:00 82.01 kg [facility] BMI 2022-04-08 13:03:00 27.49 kg/m2 [facility] Body mass index 2022-04-08 13:03:00 91.28 % [facility] S t [facility] (BMI) [Percentile] Medical C enter Per age and sex Oxygen saturation in 2022-04-08 13:03:00 96 /min [facility] Arterial blood by Medical Ce nter Pulse oximetry Procedures Procedure Date / Time Performing Clinician Source Performed XR CHEST 2 VW 2023-05-31 Meghan Rosario [facility] xas 18:32:[address] [facility] RAPID STREP SCREEN FOR 2023-05-31 Rosario, [facility] GROUP A 18:10:00 Medical Branch RAPID INFLUENZA A/B 2023-05-31 [facility] [place] 18:10:00 Medical Branch COVID-19 (ID NOW RAPID 2023-05-31 [facility] TESTING) 18:10:00 Medical Branch CONSENT/REFUSAL FOR 2023-05-31 Doctor Unassigned, No [facility] DIAGNOSIS AND TREATMENT 17:55:22 [facility] [place] NOTICE OF PRIVACY PRACTICES 2023-05-29 Doctor Unassigned, N o [facility] 00:33:00 Name Medical Branch CONSENT/REFUSAL FOR 2023-05-29 Doctor Unassigned, No [facility] DIAGNOSIS AND TREATMENT 00:31:49 Name [facility] EXTERNAL PROVIDER RECORDS 2023-04-13 Doctor Unassigned, No [facility] 05:01:00 [facility] [place] XR CHEST 2 VW [facility] RAPID STREP SCREEN FOR 2023-03-20 [facility] 05:14:[address] [facility]ASE [facility]23-[facility] 04:17[facility]00 [facility] COMP. METABOLIC PANEL 2023-03-20 Bk [facility] ([id number]) 04:17:[address] [facility] CBC WITH DIFF 2023-03-[facility] 04:17:[address] [facility] GALV ONLY - INFLUENZA A B 2023-03-20 Bk [facility] RSV PCR 04:17:[address] [facility] COVID-19 (ID NOW RAPID [facility] 04:17:00 Medical Branch CONSENT/REFUSAL FOR 2023-03-20 Doctor Unassigned, No [facility] DIAGNOSIS AND TREATMENT 03:12:23 [facility] Medical Branch CONSENT/REFUSAL FOR 2023-03-18 Doctor Unassigned, No [facility] DIAGNOSIS AND TREATMENT 18:12:13 [facility] MEDICATION CORRESPONDENCE 2023-03-17 Doctor Unassigned, No [facility] 05:01:00 Name Medical Branch XR CHEST 2 VW 2023-03-10 Avani, K [facility] xa 00:48:36 Medical Branch URINALYSIS 2023-03-10 Colleen Varma [facility] 00:42:00 Medical Branch COMP. METABOLIC PANEL 2023-03-09 Colleen Varma [facility] ([id number]) 23:41:00 Medical Branch CBC WITH DIFF 2023-03-09 AvaniColleen [facility] 23:41:00 Medical Branch CONSENT/REFUSAL FOR 2023-03-09 Doctor Unassigned, No [facility] DIAGNOSIS AND TREATMENT 21:49:15 Name Medical Branch PATIENT 2023-03-04 Doctor Unassigned, No [facility] TEACHING/INSTRUCTIONS- 05:01:00 Name Medical ranch OUTPATIENT EKG-12 LEAD 2023-03-04 [facility] ex 00:58:[address] [facility] TROPONIN I 2023-03-03 [facility] 19:25:00 Medical Branch COMP. METABOLIC PANEL 2023-03-03 [facility] ([id number]) 19:25:00 Medical Branch N-TERMINAL PRO-BNP 2023-03-03 [facility] 19:25:00 Medical Branch CONSENT/REFUSAL FOR 2023-03-03 Doctor Unassigned, No [facility] DIAGNOSIS AND TREATMENT 18:26:[address] [facility] XR HAND 3+ VW RIGHT 2023-03-02 Barrie Malhotra [facility] 18:23:39 Medical Branch ELECTROPHYSIOLOGY PROCEDURE 2023-02-23 [facility]:13[facility] FOR RELEASE 2023-02-19 Doctor Unassigned, No [facility] 05:01:00 Name Medical Branch EKG-12 LEAD 2023-02-01 Arsalan Grant [facility] xa 06:36:[address] CHEST PULMONARY 2023-02-01 Arsalan Grant [facility] ANGIOGRAM 05:31:00 Medical Branch TROPONIN I 2023-02-01 Arsalan Grant [facility] xa 05:13:00 Medical Branch COMP. METABOLIC PANEL 2023-02-01 Arsalan Grant [facility] ([id number]) 05:13:00 [facility] URINE DRUG (IMMUNOASSAY) - 2023-02-01 Arsalan Grant [facility] COMPREHENSIVE DRUG SCREEN 05:13:00 [facility] CBC WITH DIFF 2023-02-01 Arsalan Grant [facility] xa 05:13:00 [facility] XR CHEST 1 VW 2023-02-01 Arsalan Grant [facility] xa 04:17:00 Medical Branch CONSENT/REFUSAL FOR 2023-02-01 Doctor Unassigned, No [facility] DIAGNOSIS AND TREATMENT 03:26:07 Name [facility] MEDICATION CORRESPONDENCE 2023-01-28 Doctor Unassigned, No [facility] 05:01:00 Name [facility] CONSENT/REFUSAL FOR 2023-01-21 Doctor Unassigned, No [facility] DIAGNOSIS AND TREATMENT 02:34:06 [facility] FL TIME OR (NON-REPORTABLE) 2023-01-18 [facility] 17:11:45 [facility] FL TIME OR (NON-REPORTABLE) 2023-01-18 [facility] 17:11:45 [facility] METACARPAL ORIF 2023-01-18 Hannah Ventura [facility] 15:47:00 [facility] POCT GLUCOSE (AUTOMATED) 2023-01-18 Hannah Ventura [facility] 14:50:00 [facility] POCT GLUCOSE (AUTOMATED) 2023-01-18 Hannah Ventura [facility] 14:50:00 [facility] EXTERNAL PROVIDER RECORDS 2023-01-18 Doctor Unassigned, No [facility] 05:01:00 [facility] BASIC METABOLIC PANEL (NA, 2023-01-15 Hannah Ventura [facility] K, CL, CO2, GLUCOSE, BUN, 13:06:00 [facility] CREATININE, CA) CBC WITH DIFF 2023-01-15 Hannah Ventura [facility] 13:06:00 [facility] URINALYSIS 2023-01-15 Hannah Ventura [facility] 13:06:00 [facility] HB ABO GROUPING 2023-01-15 Hannah Ventura [facility] 13:06:00 Medical Branch ASSIGNMENT OF BENEFITS 2023-01-15 Doctor Unassigned, No [facility] [place] 12:48:04 Name Medical Branch EXTERNAL PROVIDER RECORDS 2023-01-14 Doctor Unassigned, No [facility] 05:01:00 Name Medical Branch EXTERNAL PROVIDER RECORDS 2023-01-14 Doctor Unassigned, No [facility] 05:01:00 Name Medical Branch REFERRAL- REQUEST/RESPONSE 2023-01-13 Doctor Unassigned, No [facility] 05:01:00 Name Medical Branch ASSIGNMENT OF BENEFITS 2023-01-08 Doctor Unassigned, No [facility] [place] 22:03:56 Name Medical Branch XR HAND <3 VW RIGHT 2023-01-08 [facility] 20:29:08 Medical Branch CONSENT/REFUSAL FOR 2023-01-08 Doctor Unassigned, No Univer [facility]ity [facility] DIAGNOSIS AND TREATMENT 19:46:31 Name Medical Branch REFERRAL- REQUEST/RESPONSE 2023-01-08 Doctor Unassigned, No [facility] 05:01:00 Name Medical Branch PHYSICIAN ORDERS 2022-12-12 [facility] No [facility] 05:01:00 Name Medical Branch INSURANCE CORRESPONDENCE 2022-12-10 Doctor Unassigned, No [facility] [place] 05:01:00 Name Medical Branch PHYSICIAN ORDERS 2022-12-08 Doctor Unassigned, No [facility] 05:01:00 Name Medical Branch ASSIGNMENT OF BENEFITS 2022-12-07 Doctor Unassigned, No [facility] [place] 04:38:17 Name Medical Branch XR CHEST 1 VW 2022-12-07 [facility] xa 03:58:05 Medical Branch NOTICE OF PRIVACY PRACTICES 2022-12-07 Doctor Unassigned, N o [facility] 02:24:27 Name Medical Branch CONSENT/REFUSAL FOR 2022-12-07 Doctor Unassigned, No [facility] 02:23:58 Name Medical Branch INSURANCE CORRESPONDENCE 2022-11-18 Doctor Unassigned, No [facility] [place] 05:01:00 Name Medical Branch XR SPINE THORACIC 2 VW 2022-11-17 Beena Ramirez [facility] [place] 18:11:54 Medical Branch XR LUMBAR SPINE 2 VW 2022-11-17 Beena Ramirez [facility] 18:11:42 Medical Branch XR CERVICAL SPINE 2 VW 2022-11-17 Beena Ramirez [facility] 18:11:11 Medical Branch PATIENT QUESTIONNAIRE 2022-11-17 Doctor Unassigned, No [facility] 05:01:00 Name Medical Branch MEDICATION CORRESPONDENCE 2022-11-16 Doctor Unassigned, No [facility] 05:01:00 Name Medical Branch XR CHEST 1 VW 2022-11-13 Colleen Varma [facility] xa 03:14:48 Medical Branch DISCLOSURE AND CONSENT, 2022-11-03 Doctor Unassigned, No [facility] 05:01:00 Name Medical Bra nch PROCEDURES URINALYSIS 2022-10-29 [facility] [place] 09:11:00 Medical Branch LIPASE 2022-10-29 [facility] [place] 09:08:00 Medical Branch MAGNESIUM 2022-10-29 [facility] [place] 09:08:00 Medical Branch COMP. METABOLIC PANEL 2022-10-29 [facility] ([id number]) 09:08:00 Medical Branch CBC WITH DIFF 2022-10-29 [facility] [place] 09:08:00 Medical Branch KEPPRA (LEVETIRACETAM) 2022-10-29 [facility] 09:08:00 Medical Branch CONSENT/REFUSAL FOR 2022-10-29 Doctor Unassigned, No [facility] DIAGNOSIS AND TREATMENT 07:52:18 Name Medical Branch EKG-12 LEAD 2022-10-28 Pita Malhotra [facility] [place] 02:24:23 Medical Branch TROPONIN I 2022-10-28 Pita Malhotra [facility] [place]as 01:37:00 Medical Branch COMP. METABOLIC PANEL 2022-10-28 Pita Malhotra [facility] ([id number]) 01:37:00 Medical Branch CBC WITH DIFF 2022-10-28 Pita Malhotra [facility] [place] 01:37:00 Medical Branch D-DIMER 2022-10-28 Pita Malhotra [facility] exas 01:37:00 Medical Branch CONSENT/REFUSAL FOR 2022-10-28 Doctor Unassigned, No [facility] DIAGNOSIS AND TREATMENT 00:34:51 Name Medical Branch MAGNESIUM 2022-10-20 [facility] xa 19:56:00 Medical Branch TROPONIN I 2022-10-20 [facility] [place] 19:56:00 Medical Branch COMP. METABOLIC PANEL 2022-10-20 [facility] ([id number]) 19:56:00 Medical Branch CBC WITH DIFF 2022-10-20 [facility] [place] 19:56:00 Medical Branch D-DIMER 2022-10-20 [facility] xa 19:56:00 Medical Branch N-TERMINAL PRO-BNP 2022-10-20 [facility] 19:56:00 Medical Branch CONSENT/REFUSAL FOR 2022-10-20 Doctor Unassigned, No [facility] DIAGNOSIS AND TREATMENT 19:10:18 Name [facility] CT ABDOMEN PELVIS W 2022-10-09 Ruben Belcher [facility] CONTRAST 05:16:10 Medical Branch LIPASE 2022-10-09 Ye [facility] 04:02:00 Medical Branch COMP. METABOLIC PANEL 2022-10-09 Ruben Belcher [facility] ([id number]) 04:02:00 Medical Branch CBC WITH DIFF 2022-10-09 Ruben Belcher [facility] [place] 04:02:00 Medical Branch URINALYSIS 2022-10-09 Ye [facility] 04:02:00 Medical Branch NOTICE OF PRIVACY PRACTICES 2022-10-09 Doctor Unassigned, N o [facility] 03:36:47 Name Medical Branch CONSENT/REFUSAL FOR 2022-10-09 Doctor Unassigned, No [facility] DIAGNOSIS AND TREATMENT 03:34:38 Name Medical [place] REFERRAL- REQUEST/RESPONSE 2022-09-21 Doctor Unassigned, No [facility] 06:01:[address] [facility] MEDICATION CORRESPONDENCE 2022-08-20 Doctor Unassigned, No [...] Branch INSURANCE CORRESPONDENCE 2022-07-21 Doctor Unassigned, No [facility] 06:01:00 Name Medical Branch MEDICATION CORRESPONDENCE 2022-07-16 Doctor Unassigned, No [facility] 06:01:00 Name Medical Branch EKG-12 LEAD 2022-07-13 Robert Gloria [facility] ex 04:05:39 Medical Branch XR CHEST 1 VW 2022-07-13 Robert Gloria [facility] ex 03:18:00 Medical Branch CONSENT/REFUSAL FOR 2022-07-13 Doctor Unassigned, No [facility] DIAGNOSIS AND TREATMENT 01:56:55 [facility] REFERRAL- REQUEST/RESPONSE 2022-06-24 Doctor Unassigned, No [facility] 06:01:00 [facility] CONSENT/REFUSAL FOR 2022-06-22 Doctor Unassigned, No [facility] DIAGNOSIS AND TREATMENT 14:45:55 [facility] CT THORAX WO CONTRAST 2022-06-21 Abraham [facility] 06:47:[address] [facility] TROPONIN I 2022-06-21 Abraham [facility] 05:33:00 [facility] COMP. METABOLIC PANEL 2022-06-21 Abraham [facility] ([id number]) 05:33:[address] [facility] CBC WITH DIFF 2022-06-21 Abraham [facility] 05:33:00 Medical Branch PROTHROMBIN TIME / INR 2022-06-21 Abraham Meghan [facility] 05:33:00 Medical Branch ACTIVATED PARTIAL THRMPLAS 2022-06-21 Meghan Rosario [facility] LIV 05:33:00 Medical Branch N-TERMINAL PRO-BNP 2022-06-21 Abraham [facility] 05:33:00 Medical Branch XR CHEST 1 VW 2022-06-21 Abraham [facility] 05:00:00 Medical Branch BLOOD CULTURE SCREEN 2022-06-21 Abraham [facility] 04:29:00 Medical Branch RAPID INFLUENZA A/B 2022-06-21 Abraham [facility] 04:29:00 Medical Branch COVID-19 (ID NOW RAPID 2022-06-21 Abraham [facility] TESTING) 04:29:00 Medical Branch BLOOD CULTURE SCREEN 2022-06-21 Abraham [facility] 04:15:00 Medical Branch CONSENT/REFUSAL FOR 2022-06-21 Doctor Unassigned, No [facility] DIAGNOSIS AND TREATMENT 03:54:30 Name [facility] AUTHORIZATION TO RELEASE 2022-06-18 Doctor Unassigned, No [facility] PHI TO [facility] 06:01:00 Name [facility] CT CHEST PULMONARY 2022-06-16 Ruben Belcher [facility] ANGIOGRAM 23:13:[address] [facility] LIPASE 2022-06-16 Ruben Belcher [facility] 22:15:00 Medical Branch COMP. METABOLIC PANEL 2022-06-16 Ruben Belcher [facility] ([id number]) 22:15:00 Medical Branch CBC WITH DIFF 2022-06-16 Ruben Belcher [facility] 22:15:00 Medical Branch RAPID STREP SCREEN FOR 2022-06-16 Ruben Belcher [facility] GROUP A 22:15:[address] [facility] GALV ONLY - INFLUENZA A B 2022-06-16 [facility] [facility] COVID-19 (ID NOW RAPID 2022-06-16 Ruben Belcher [facility] TESTING) 22:15:00 Medical Branch LAB ONLY COVID 2022-06-16 Ruben Belcher [facility] INTERPRETATION 22:15:00 Medical Branch CONSENT/REFUSAL FOR 2022-06-16 Doctor Unassigned, No [facility] DIAGNOSIS AND TREATMENT 21:00:59 Name [facility] LACTIC ACID WHOLE BLOOD 2022-05-29 Tyron Nuñez [facility] 04:08:00 Medical Branch BLOOD CULTURE SCREEN 2022-05-29 Singer [facility] 02:22:00 Medical Branch COMP. METABOLIC PANEL 2022-05-29 Singer [facility] ([id number]) 02:22:00 Medical Branch CBC WITH DIFF 2022-05-29 Singer [facility] 02:22:00 [facility] LACTIC ACID WHOLE BLOOD 2022-05-29 Singer [facility] 02:21:[address] [facility] URINALYSIS 2022-05-29 Singer [facility] 02:05:[address] [facility] XR CHEST 1 VW 2022-05-29 Nuñez, [facility] 02:03:57 [facility] NOTICE OF PRIVACY PRACTICES 2022-05-29 Doctor Unassigned, N o [facility] 01:16:26 Name [facility] CONSENT/REFUSAL FOR 2022-05-29 Doctor Unassigned, No [facility] DIAGNOSIS AND TREATMENT 01:15:44 Name [facility] COMPREHENSIVE METABOLIC 2022-04-08 [address]ijaz [facility] PANEL 14:15:00 Medical Center BILIRUBIN, DIRECT 2022-04-[address] [facility] 14:15:[address] [facility] CBC W/PLT COUNT & AUTO 2022-04-08 Alondra [address] Aijaz [facility] DIFFERENTIAL 14:15:00 Medical Center HEPATITIS A ANTIBODY, IGG 2022-04-08 Alondra Ujnior Augustinz [facility] 14:15:[address] [facility] HEPATITIS B SURFACE ANTIGEN 2022-04-08 Wil[address]ader[address] [facility] 14:15:00 Medical Center HEPATITIS B SURFACE 2022-04-08 Khaderi, Junior Aijaz [facility] ANTIBODY 14:15:00 Medical Center HEPATITIS B CORE ANTIBODY, 2022-04-08 Willyaderi, Junior Aijaz [facility] TOTAL 14:15:00 Medical Center HEPATITIS C ANTIBODY 2022-04-08 Khaderi, Junior Aijaz [facility] 14:15:00 Medical Center IRON, TIBC, % SAT. (WITHOUT 2022-04-08 Willyaderi, Junior Aijaz [facility] FERRITIN) 14:15:00 Medical Center FERRITIN 2022-04-08 [facility] 14:[facility] RDAHR-0-MDVBTNSTNSH\\, SERUM 2022-04-08 [facility] 14:15:00 Medical Center CERULOPLASMIN 2022-04-08 [facility] 14:[facility] Center ANTI-NUCLEAR ANTIBODY (FERNANDA) 2022-04-08 [facility] [facility] ACTIN (SMOOTH MUSCLE) 2022-04-08 [facility] Junior Reeves [facility] ANTIBODY, IGG 14:15:[address] [facility] MITOCHONDRIA M2 ANTIBODY 2022-04-08 [facility] ([facility] 14:15:[address] [facility] IMMUNOGLOBULIN G (IGG) 2022-04-08 [facility] Junior Lala [facility] 14:15:[address] [facility] CBC W/PLT COUNT & AUTO 2022-04-08 [facility] DIFFERENTIAL 14:15:00 Medical Center [...] - [facility] Test 00:00:00 Mixed Product series) Medica l Center [code = COVID-19 VACCINE (4 - Mixed Product series)] Future Scheduled 2018-11-[address] [facility] Test 00:00:00 virus screening Medical Cent er (procedure) [code = 067450891] Future Scheduled 2018-11-[address] [facility] Test 00:00:00 virus screening Medical Cent er (procedure) [code = 234235884] Future Scheduled 2018-11-[address] [facility] Test 00:00:00 virus screening Medical Cent er (procedure) [code = 183852505] Future Scheduled 2018-11-[address] [facility] Test 00:00:00 virus screening Medical Cent er (procedure) [code = 000367549] Future Scheduled 2018-11-[address] [facility] Test 00:00:00 virus screening Medical Cent er (procedure) [code = 766968762] Future Scheduled 2018-11-[address] [facility] Test 00:00:00 virus screening Medical Cent er (procedure) [code = 665256177] Future Scheduled 2018-11-[address] [facility] Test 00:00:00 virus screening Medical Cent er (procedure) [code = 730341139] Future Scheduled 2018-11-[address] [facility] Test 00:00:00 virus screening Medical Cent er (procedure) [code = 884181725] Future Scheduled 2018-11-[address] [facility] Test 00:00:00 virus screening Medical Cent er (procedure) [code = 924901485] Future Scheduled 2018-11-[address] [facility] Test 00:00:00 virus screening Medical Cent er (procedure) [code = 728897757] Future Scheduled 2005-12-28 WELL CHILD EXAM (>[address] [facility] Test 00:00:00 and <= 18 YEARS) [[facility] (>2 YEARS and <= 18 YEARS)] Future Scheduled 2005-12-28 WELL CHILD EXAM (>[address] [facility] Test 00:00:00 and <= 18 YEARS) [code = [facility] WELL CHILD EXAM (>2 YEARS and <= 18 YEARS)] Future Scheduled 2005-12-28 WELL CHILD EXAM (>[address] [facility] Test 00:00:00 and <= 18 YEARS) [code = Med [facility] WELL CHILD EXAM (>2 YEARS and <= 18 YEARS)] Future Scheduled 2005-12-28 WELL CHILD EXAM (>[address] [facility] Test 00:00:00 and <= 18 YEARS) [code = [facility] WELL CHILD EXAM (>2 YEARS and <= 18 YEARS)] Encounters Start End Encounter Admission Attending Care Care Encounter Source Date/Time Date/Time Type Type Clinicians Facility Department ID 2023-09-23 2023-09-23 Outpatient CHER[facility] ALARCON [facility] [id number] Univers 12:00:00 12:00:00 CHERISE MAURICE [facility] 2023-06-07 2023-06-07 Outpatient JOSE HARRIS [facility] [id number] Univers 14:40:00 14:40:00 hola [facility] 2023-05-31 2023-05-31 [facility] [id number] Univers 12:00:00 13:48:00 MEGHAN simental [facility] 2023-05-31 2023-05-31 [facility] [id number] Univers 12:00:00 13:48:00 Meghan COLEMAN 350.1.13.10 i [place] 4.2.7.2.686 [facility] [id number] [place] [address] Branch 2023-05-28 2023-05-28 Emergency X TERRENCE [facility] ERT [id number] Univers 18:46:00 21:00:00 CYNISE ity of [facility] 2023-05-28 2023-05-28 Emergency [facility] 1.2.522.602 [id number] Univers 18:46:00 21:00:00 Andree COLEMAN 350.1.13.10 i ty of [facility] 4.2.7.2.[place] [id number] [facility] 084 Branch 2023-05-06 2023-05-06 Outpatient R CHERISE MAURICE [facility] [id number] Univers 10:20:00 10:38:09 CHERISE MAURICE ity [facility] 2023-05-06 2023-05-06 Office Primo [facility] 1.2.840.114 [id number] Univers 10:20:00 10:38:09 Visit Fraciscofay JARED 350.1.13.10 ity of [place].7.2.686 [place] [facility] [id number] Wa dical NAL 059 [facility] 2023-04-13 2023-04-13 Orders Doctor DEE 1.2.840.114 [id number] Univers 00:00:00 00:00:00 Only Unassigned, MORGAN 350.1.13.10 ity of [place] [facility] 4.2.7.2.686 Morales as [id number] [facility] 009 Branch 2023-03-24 2023-03-24 Outpatient R JOSE CHRISTOPHER [facility] [id number] Univers 11:40:00 11:40:00 ity of [facility] 2023-03-19 2023-03-20 Emergency X ADELINE MCDUFFIE [facility] ERT [id number] Univers 22:19:00 03:01:00 ADELINE MCDUFFIE ity of [facility] 2023-03-19 2023-03-20 Emergency Bk, TRAUMA [id number] [id number] Univers 22:19:00 03:01:00 Adeline BRONWE 350.1.13.10 it [place] [id number] [facility] 014 Branch 2023-03-182023-03-18 Emergency [facility] [id number] Univers 13:27:00 13:45:00 FAITH ity of [facility] 2023-03-18 2023-03-18 Emergency [facility] 1.2.840.114 [id number] Univers 13:27:00 13:45:00 Faith COLEMAN 350.1.13.10 ity of [place] 4.2.7.2.686 [place] C[place] [id number] [facility] 084 [place] 2023-03-17 2023-03-17 Orders Doctor DEE 1.2.840.114 [id number] Univers 00:00:00 00:00:00 Only Unassigned, MORGAN 350.1.13.10 ity of [place] [facility] 4.2.7.2.686 Morales as [id number] [facility] 009 [place] 2023-03-16 2023-03-16 Telephone Christian [facility] [id number] Univers 00:00:00 00:00:00 Yanci COLEMAN 350.1.13.10 i ty of [place].7.2.[place] [id number] Wa dictala NAL 085 [facility] 2023-03-11 2023-03-11 Outpatient R CHERISE MAURICE [facility] [id number] Univers 12:19:34 23:59:00 CHERISE MAURICE ity of [facility] 2023-03-11 2023-03-11 [facility] 1.2.840.114 [id number] Univers 12:19:34 23:59:00 Encounter Michael COLEMAN 350.1.13.10 ity of [facility] 4.2.7.2.686 [place] [facility] [id number] Wa dical NAL 844 [facility] 2023-03-11 2023-03-11 Letter Primo [facility] 1.2.840.114 [id number] Univers 00:00:00 00:00:00 (Out) Michael COLEMAN 350.1.13.10 ity of [place] [facility] 4.2.7.2.686 [place] [id number] Wa dicin NAL 059 Branch [facility] 2023-03-11 2023-03-11 Letter Primo [facility] 1.2.840.114 [id number] Univers 00:00:00 00:00:00 (Out) Michael [place] 350.1.13.10 ity of [place] 4.2.7.2.686 [place] [id number] Wa dicin NAL 9 [facility] 2023-03-09 2023-03-09 Emergency X Colleen VARMA [facility] ERT [id number] Univers 16:56:00 20:56:00 ity of [facility] 2023-03-09 2023-03-09 Emergency Colleen Varma [facility] 1.2.840.114 [id number] Univers 16:56:00 20:56:00 [facility] 350.1.13.10 i ty of [place].2.7.2.686 [place] C[place]US [id number] [place] [id number] Branch 2023-03-09 2023-03-09 Telephone Primo [facility] 1.2.840.114 [id number] Univers 00:00:00 00:00:00 Chomauryalinfay [place] 350.1.13.10 ity of [place] 4.2.7.2.686 [place] [id number] Wa dicin NAL 059 Branch [facility] 2023-03-07 2023-03-07 Refshirley Gandara [facility] 1.2.840.114 [id number] Univers 00:00:00 00:00:00 [facility] 350.1.13.10 ity of [place] 4.2.7.2.686 [place] AMAYA [id number] [facility] MEDICAL 092 Branch OFFICE BUILDING 2023-03-05 2023-03-05 Telephone Christian [facility] 1.2.525.896 [id number] Univers 00:00:00 00:00:00 Shiaparnaaditi JARED 350.1.13.10 i ty of [place] 4.2.7.2.[place] [id number] [address] 2023-03-04 2023-03-04 Orders Doctor DEE 1.2.840.114 [id number] Univers 00:00:00 00:00:00 Only Unassigned, MORGAN 350.1.13.10 ity of [place] [facility] 4.2.7.2.686 Morales as [id number] [facility] 009 Branch 2023-03-03 2023-03-03 Emergency X [facility] ERT [id number] Univers 13:42:00 20:01:00 MIL ity of [facility] 2023-03-03 2023-03-03 Emergency [facility] 1.2.840.114 [id number] Univers 13:42:00 20:01:00 Mil [facility] 350.1.13.10 i ty of [facility] 4.2.7.2.686 [place] C[place] [id number] [facility] 084 [place] 2023-03-03 2023-03-03 Telephone Jose Christopher [facility] 1.2.840.114 [id number] Univers 00:00:00 00:00:00 S HEALTH 350.1.13.10 it y of [place] 4.2.7.2.686 [place] [phone] [facility] 092 [place] OFFICE BUILDING 2023-03-03 2023-03-03 Telephone [facility] 1.2.840.114 1 [id number] Univers 00:00:00 00:00:00 Chockalinga [place] 350.1.13.10 ity of [facility] 4.2.7.2.686 [place] [id number] [facility] 059 Branch [facility] 2023-03-03 2023-03-03 Telephone [facility] 1.2.840.114 [id number] Univers 00:00:00 00:00:00 [place] 350.1.13.10 ity of [place] [facility] 4.2.7.2.686 [place] [id number] Wa dicin NAL 059 Branch BUILDING 2023-03-02 2023-03-02 [facility] 1.2.840.114 [id number] Univers 12:50:00 23:59:00 Encounter Barrie Linda HEALTH 350.1.13.10 ity of [place] 4.2.7.2.686 Morales as JIGNA?BLEA [id number] Wa roetala LAMINLUIS E 809 [facility] OFFICE [facility] 2023-03-02 2023-03-02 Outpatient R ROSCOE [facility] [id number] Univers 13:00:00 13:38:29 BARRIE ity of [facility] 2023-03-02 2023-03-02 Office [facility] 1.2.840.114 [id number] Univers 13:00:00 13:15:[address] [facility] 350.1.13.10 it y of [place] 4.2.7.2.686 Morales as JIGNA?BLEA [id number] [facility] [address] [facility] 2023-02-23 2023-02-23 Surgery DARIEN Maurice 1.2.840.114 [id number] Univers 11:15:00 12:00:00 Chomauryalinfay MORGAN 350.1.13.10 ity of [facility] 4.2.7.2.686 Morales as [id number] [address] 2023-02-23 2023-02-23 Outpatient R CHERISE MAURICE [facility] CCA [id number] Univers 07:04:00 11:06:00 CHERISE MAURICE ity of [facility] 2023-02-23 2023-02-23 Hospital DARIEN Maurice 1.2.840.114 [id number] Univers 07:04:00 11:06:00 Encounter Chockalinfay MORGAN 350.1.13.10 ity of [facility] 4.2.7.2.686 Morales as [id number] [address] 2023-02-22 2023-02-22 Office [facility] 1.2.840.114 [id number] Univers 10:00:00 10:30:00 Visit Danishaditi JARED 350.1.13.10 i ty of [facility] 4.2.7.2.[place] [id number] [place] [id number] [facility] 2023-02-22 2023-02-22 Outpatient R YANCI MICHAEL [facility] 10 [id number] Univers 10:00:00 10:00:00 YANCI MICHAEL i ty of [facility] 2023-02-22 2023-02-22 Telephone Jose Christopher [facility] 1.2.840.114 [id number] Univers 00:00:00 00:00:00 S HEALTH 350.1.13.10 it y of [place] 4[place]2.7.2.686 [place] [id number] [address] OFFICE [facility] 2023-02-22 2023-02-22 Telephone Jose Christopher [facility] 1.2.840.114 [id number] Univers 00:00:00 00:00:00 S HEALTH 350.1.13.10 it y of [place]7.2.[place] [id number] [address] OFFICE [facility] 2023-02-19 2023-02-19 Orders Doctor DEE 1.2.840.114 [id number] Univers 00:00:00 00:00:00 Only Unassigned, MORGAN 350.1.13.10 ity of [place] [facility] 4.2.7.2.686 Morales as [id number] [address] 2023-02-18 2023-02-18 Telephone Abrol, UNIVERSIT 1.2.840.114 10 [id number] Univers 00:00:00 00:00:00 Robinder Y HEALTH 350.1.13.10 ity of [place] [id number] [address] 2023-02-18 2023-02-18 Telephone Abrol, UNIVERSIT 1.2.840.114 10 [id number] Univers 00:00:00 00:00:00 Robinder Y HEALTH 350.1.13.10 ity of [place].7.2.[place] [id number] [address] 2023-02-18 2023-02-18 Telephone Cem [facility] 1.2.770.166 [id number] Univers 00:00:00 00:00:00 Christiano COLEMAN 350.1.13.10 ity of [facility] 4.2.7.2.[place] [id number] Wa dical NAL 059 [facility] 2023-02-18 2023-02-18 Telephone BOB Mcfarland 1.2.840.114 10 [id number] Univers 00:00:00 00:00:00 Robazra HEALTH 350.1.13.10 ity of [facility] 4.2.7.2.686 [place] [id number] [facility] 071 [place] 2023-02-15 2023-02-15 Outpatient R JOSE CHRISTOPHER [facility] [id number] Univers 08:30:00 08:30:00 ity of [facility] 2023-02-09 2023-02-09 Hospital [facility] 1.2.840.114 [id number] Univers 14:30:00 23:59:00 Encounter [facility] 350.1.13.10 ity of [place] 4.2.7.2.686 Morales as JIGNA?BLEA [id number] Wa roetala EARNEST 809 [facility] OFFICE [facility] 2023-02-09 2023-02-09 [facility] [id number] Univers 14:45:00 16:09:28 BARRIE ity [facility] 2023-02-09 2023-02-09 Office [facility] 1.2.840.114 [id number] Univers 14:45:00 15:00:00 Visit [facility] 350.1.13.10 it y of [place] 4.2.7.2.686 Morales as JIGNA?BLEA [id number] Wa dictala KIMBLEEY 198 [facility] OFFICE [facility] 2023-02-09 2023-02-09 Telephone [facility] [id number] Univers 00:00:00 00:00:00 Nikiaparnaaditi JARED 350.1.13.10 i ty of [facility] 4.2.7.2.[place] [id number] Wa dical NAL 085 [facility] 2023-02-01 2023-02-01 Outpatient R ROSCOE [facility] [id number] Univers 14:10:00 23:59:00 BARRIE ity of [facility] 2023-02-01 2023-02-01 Office [facility] 1.2.840.114 [id number] Univers 13:45:00 14:00:[address] [facility] 350.1.13.10 it y of [place] 4.2.7.2.686 Morales as JIGNA?BLEA [id number] [address] MEDICAL OFFICE [facility] 2023-01-31 2023-02-01 Emergency X VASUT, [facility] ERT [id number] Univers 22:28:00 01:54:00 ARSALAN ity [facility] 2023-01-31 2023-02-01 Emergency [facility] [id number] Univers 22:28:00 01:54:00 Arsalan COLEMAN 350.1.13.10 i ty of [place] 4.2.7.2.686 [place] [facility] [id number] [facility] [address] [place] 2023-02-01 2023-02-01 Telephone DARIEN Maurice 1.2.840.114 [id number] Univers 00:00:00 00:00:00 Michael MORA 350.1.13.10 ity of [facility] 4.2.7.2.686 Morales as [id number] [facility] [address] [place] 2023-01-29 2023-01-29 Outpatient R CHERISE MAURICE [facility] [id number] Univers 09:49:06 23:59:00 CHERISE MAURICEy [facility] 2023-01-28 2023-01-28 Outpatient R CHERISE MAURICE [facility] [id number] Univers 15:20:00 15:30:35 CHERISE MAURICE [facility] 2023-01-28 2023-01-28 Office Primo [facility] 1.2.840.114 [id number] Univers 15:20:00 15:30:35 Visit Michael COLEMAN 350.1.13.10 ity of [facility] 4.2.7.2.[place] [id number] [facility] 059 Branch BUILDING 2023-01-28 2023-01-28 [facility]phone [facility] [id number] [id number] Univers 00:00:00 00:00:00 Shiwan [place] 350.1.13.10 i ty [place] [id number] [facility] [address] [facility] 2023-01-28 2023-01-28 Refill [facility] 1.2.840.114 [id number] Univers 00:00:00 00:00:00 [facility] 350.1.13.10 [place] [phone] [facility] [address] OFFICE BUILDING 2023-01-28 2023-01-28 Telephone [facility] [id number] Univers 00:00:00 00:00:00 Shiwan [place] 350.1.13.10 i [place] [id number] [address] 2023-01-28 2023-01-28 Orders Doctor DEE 1.2.840.114 [id number] Univers 00:00:00 00:00:00 Only Unassigned, [place] 350.1.13.10 [place]y of [place] [facility] 4.2.7.2.686 [place] as [phone] [facility] [address] 2023-01-20 2023-01-21 Emergency X SACHIN CARVAJAL [facility] ERT [id number] Univers 21:49:00 00:40:00 ity of [facility] 2023-01-20 2023-01-21 Emergency Sachin Carvajal [facility] 1.2.840.114 [id number] Univers 21:49:00 00:40:00 T [place] 350.1.13.10 i [place] [phone] [facility] [facility] [address] 2023-01-18 2023-01-18 Outpatient R LORENZO [facility] SOR [id number] Univers 09:13:00 13:06:00 HANNAH ity of [facility] 2023-01-18 2023-01-18 Hospital [facility] 1.2.840.114 [id number] Univers 09:13:00 13:06:00 Encounter Hannah COLEMAN 350.1.13.10 ity [facility] [place].2.[place] [id number] [facility] [address] 2023-01-18 2023-01-18 Surgery [facility] 1.2.447.483 [id number] [id number] Univers 10:50:00 12:25:00 Hannah COLEMAN 350.1.13.10 i ty of [facility] 4.2.7.2.[place] [id number] [facility] [address] 2023-01-18 2023-01-18 Orders Doctor DEE 1.2.840.114 [id number] Univers 00:00:00 00:00:00 Only Unassigned, MORGAN 350.1.13.10 ity of [place] [facility] 4.2.7.2.686 Morales as [id number] [facility] [address] [place] 2023-01-15 2023-01-15 Pantographer Grisel, [facility] Lab Main [facility] 1.2.8 40.114 [id number] Univers 08:30:00 08:45:00 Visit Sarbjit Kee JARED 350.1.13.10 ity of [place] 4.2.7.2.686 [facility] [phone] Wa dical [facility] 353 [facility] 2023-01-15 2023-01-15 [facility] [id number] Univers 08:30:00 08:30:00 HANNAH simental [facility] 2023-01-15 2023-01-15 Orders Doctor DEE 1.2.840.114 [id number] Univers 00:00:00 00:00:00 Only Unassigned, MORGAN 350.1.13.10 ity of [place] [facility] 4.2.7.2.686 Morales as [phone] [facility] cherie [address] [place] 2023-01-14 2023-01-14 Telephone [facility] 1.2.071.792 [id number] [id number] Univers 00:00:00 00:00:00 Barrie Linda HEALTH 350.1.13.10 it y of [place] 4.2.7.2.686 Morales as JIGNA?BLEA [id number] Wa oj TINOCO [address] [place] [address] OFFICE [facility] 2023-01-13 2023-01-13 Office [facility] 1.2.035.314 0413 [id number] Univers 13:00:00 13:15:00 Visit Hannah Orozco [facility] 350.1.13.10 it y of [facility] 4.2.7.2.686 Morales as JIGNA?BLEA [phone] Wa oj [address] OFFICE [facility] 2023-01-13 2023-01-13 Outpatient [facility] [id number] Univers 13:00:00 13:00:00 HANNAH simental [facility] 2023-01-13 2023-01-13 Orders Doctor DEE 1.2.840.114 [id number] Univers 00:00:00 00:00:00 Only Unassigned, MORGAN 350.1.13.10 ity of [place] [facility] 4.2.7.2.686 Morales as [id number] [facility] [address] [place] 2023-01-08 2023-01-08 Emergency X [facility] ERT [id number] Univers 14:55:00 17:08:00 SURY ity of [facility] 2023-01-08 2023-01-08 Emergency [facility] 1.2.298.463 [id number] [id number] Univers 14:55:00 17:08:00 Sury S JARED 350.1.13.10 i ty of [place]7.2.[place] [id number] [facility] [address] [place] 2023-01-08 2023-01-08 Orders Doctor DEE 1.2.840.114 [id number] Univers 00:00:00 00:00:00 Only Unassigned, MORGAN 350.1.13.10 ity of [place] [facility] 4.2.7.2.686 Morales as [phone] [facility] [address] [place] 2023-01-08 2023-01-08 Telephone [facility] 1.2.044.278 [id number] [id number] Univers 00:00:00 00:00:00 Yanci COLEMAN 350.1.13.10 i ty of [place].2.7.2.[place] [id number] Wa dical NAL 085 [facility] 2023-01-08 2023-01-08 Patient Doctor DEE 1.2.840.114 [id number] Univers 00:00:00 00:00:00 Secure Msg Unassigned, MORGAN 350.1.13.10 [facility] 4.2.7.2.686 Morales as [phone] [facility] [address] [place] 2023-01-05 2023-01-05 Telephone [facility] 1.2.122.598 2094 [id number] Univers 00:00:00 00:00:00 Yanci COLEMAN 350.1.13.10 i ty of [place].7.2.[place] [id number] Wa dical NAL 085 [facility] 2022-12-28 2022-12-28 Telephone [facility] 1.2.906.234 7038 [id number] Univers 00:00:00 00:00:00 Christiano COLEMAN 350.1.13.10 ity of [facility] 4.2.7.2.[place] [id number] Wa dical NAL 059 [facility] 2022-12-21 2022-12-21 Outpatient R JOSE [facility]RISTOPHER [facility] [id number] Univers 09:20:00 09:33:52 ity of [facility] 2022-12-21 2022-12-21 Office Jose Christopher [facility] 1.2.840.114 10 [id number] Univers 09:20:00 09:33:52 Visit S HEALTH 350.1.13.10 it y of [place] 4.2.7.2.[place] A[place] [id number] [place] [address] [place] OFFICE BUILDING 2022-12-16 2022-12-16 Patient Doctor [facility] 1.2.840.114 [id number] Univers 00:00:00 00:00:00 Secure Msg Unassigned, ANGLENELSON 350.1.13.10 ity of [place].2.7.2.[place] [id number] Wa dic[address] 2022-12-15 2022-12-15 Inpatient R JOSE CHRISTOPHER [facility] TYRONE [id number] Univers 08:30:00 08:30:00 ity of [facility] 2022-12-14 2022-12-14 Telephone [facility] 1.2.893.353 [id number] Univers 00:00:00 00:00:00 Yanci COLEMAN 350.1.13.10 i ty of [place] 4.2.7.2.[place] [phone] [address] 2022-12-12 2022-12-12 Orders Doctor PRICE 1.2.840.114 [id number] Univers 00:00:00 00:00:00 Only Unassigned, MORGAN 350.1.13.10 ity of [place] [facility] 4.2.7.2.686 Morales as [id number] [address] 2022-12-11 2022-12-11 Outpatient R CEM [facility] [id number] Univers 16:00:00 16:00:00 CHRISTIANO ity o f [facility] 2022-12-10 2022-12-10 Telephone [facility] 1.2.893.245 [id number] [id number] Univers 00:00:00 00:00:00 Christiano COLEMAN 350.1.13.10 ity of [place].7.2.[place] [phone] [address] 2022-12-10 2022-12-10 Orders Doctor DEE 1.2.840.114 [id number] Univers 00:00:00 00:00:00 Only Unassigned, MORGAN 350.1.13.10 ity of [place] [facility] 4.2.7.2.686 Morales as [id number] [address] 2022-12-08 2022-12-08 Orders Doctor DEE 1.2.840.114 [id number] Univers 00:00:00 00:00:00 Only Unassigned, MORGAN 350.1.13.10 ity of [place] [facility] 4.2.7.2.686 Morales as [phone] [facility] [address] [place] 2022-12-06 2022-12-07 Emergency X [facility] [id number] Univers 21:57:00 00:35:00 TYRON ity of [facility] 2022-12-06 2022-12-07 Emergency [facility] 1.2.343.409 0923 [id number] Univers 21:57:00 00:35:00 Tyron COLEMAN 350.1.13.10 i ty of [place] 4.2.7.2.[place] CAMPUS [id number] [facility] [address] [place] 2022-12-07 2022-12-07 Telephone [facility] 1.2.047.390 9635 [id number] Univers 00:00:00 00:00:00 Yanci COLEMAN 350.1.13.10 i ty of [place] 4.2.7.2.[place] [id number] [facility] 085 [facility] 2022-12-04 2022-12-04 Telephone [facility] 1.2.384.052 1303 [id number] Univers 00:00:00 00:00:00 Christiano COLEMAN 350.1.13.10 ity of [place] 4.2.7.2.[place] [id number] [facility] 059 [facility] 2022-12-04 2022-12-04 Telephone [facility] 1.2.806.509 9465 [id number] Univers 00:00:00 00:00:00 Christiano COLEMAN 350.1.13.10 ity of [place] 4[place]2.7.2.[place] [id number] Wa dicin NAL 059 [facility] 2022-12-03 2022-12-03 [facility] 1.2.840.114 1 [id number] Univers 14:07:58 23:59:00 Encounter , Pankaj HAAS 350.1.13.10 ity of C[place] 4.2.7.2.[place] CENTER AT [phone] Wa oj SHEETS 809 [facility] 2022-12-03 2022-12-03 Outpatient R GERRY [facility] 089 [id number] Univers 12:45:00 14:46:50 , PANKAJ ity [facility] 2022-12-03 2022-12-03 [facility] 1.2.840.114 10 [id number] Univers 12:45:00 14:46:50 Visit , Pankaj SPECIALTY 350.1.13.10 ity of [place] 4.2.7.2.[place] CENTER AT [id number] Wa oj SHEETS 198 [facility] 2022-12-02 2022-12-02 [facility] [id number] Univers 07:36:17 23:59:00 CHRISTIANO ity o f [facility] 2022-11-26 2022-11-26 Outpatient [facility] [id number] Univers 13:00:00 13:22:38 ANJALI itliliana [facility] 2022-11-26 2022-11-26 Office LATANYA Wisdom 1.2.840.114 10 [id number] Univers 13:00:00 13:22:38 Visit Anjali Y 350.1.13.10 it y of NATIONAL 4.2.7.2.686 [facility] BANK [id number] [facility] [address] [place] 2022-11-26 2022-11-26 Ancillary Wendy Rosario UNIVERSIT 1.2.84 0.114 [id number] Univers 11:15:00 11:17:49 Visit 1Dominick [employer] Suite Y 350.1 .13.10 ity of Fadumo Ortiz NATIONAL 4.2.7.2.686 [place] BANK [phone] [facility] [address] [place] 2022-11-23 2022-11-23 Outpatient [facility] [id number] Univers 13:00:00 13:49:08 HANNAH [facility] 2022-11-23 2022-11-23 Ancillary Nano Cook [facility] 1 .2.840.114 [id number] Univers 13:00:00 13:49:08 Visit Hannah [place] Ernesto COLEMAN 350.1.13.10 ity of [place].2.7.2.[place] [phone] Wa dical NAL 179 [facility] 2022-11-20 2022-11-20 Telephone Christian [facility] 1.2.425.419 [id number] [id number] Univers 00:00:00 00:00:00 Yanci COLEMAN 350.1.13.10 i ty of [place] 4.2.7.2.[place] [id number] Wa dicin NAL 085 [facility] 2022-11-19 2022-11-19 Outpatient [facility] [id number] Univers 11:20:00 11:34:12 CHRISTIANO simental o f [facility] 2022-11-19 2022-11-19 Office [facility] 1.2.840.114 [id number] Univers 11:20:00 11:34:12 Visit Christiano COLEMAN 350.1.13.10 ity of [place] 4.2.7.2.[place] [phone] [facility] NAL 059 [facility] 2022-11-18 2022-11-18 Orders Doctor DEE 1.2.840.114 [id number] Univers 00:00:00 00:00:00 Only Unassigned, MORGAN 350.1.13.10 ity of [place] [facility] 4.2.7.2.686 Morales as [id number] [facility] [address] 2022-11-18 2022-11-18 Patient Zachariahol, UNIVERSIT 1.2.736.966 [id number] [id number] Univers 00:00:00 00:00:00 Secure Formerly named [facility] 350.1.13.10 ity of CLINICS 4.2.7.2.[place] [id number] [facility] [address] 2022-11-17 2022-11-17 Hospital [facility] 1.2.235.571 5682 08392 Univers 14:11:57 23:59:00 Encounter Beena HAAS 350.1.13.10 ity of [place] CARE [place]2.7.2.[place] CENTER AT [id number] Wa dical VICTORY 809 [facility] 2022-11-17 2022-11-17 Office [facility] 1.2.840.114 [id number] Univers 13:20:00 14:40:18 Visit Beena SPECIALTY 350.1.13.10 ity of [place].2.7.2.[place] CENTER AT [id number] Wa dical VICTORY 198 [facility] 2022-11-17 2022-11-17 [facility] 1.2.120.767 [id number] [id number] [facility] 12:58:08 14:10:00 Encounter Beena SPECIALTY 350.1.13.10 ity of [place]2.7.2.[place] C[place] AT [id number] Wa oj BRASHERY 809 [facility] 2022-11-17 2022-11-17 [facility] 1.2.264.933 8780 71137 [facility] 12:58:02 14:10:00 Encounter Beena SPECIALTY 350.1.13.10 ity of [place] 4.2.7.2.[place] CENTER AT [id number] Wa oj SHEETS 809 [facility] 2022-11-17 2022-11-17 Outpatient R [facility] [id number] Univers 12:57:56 12:57:56 BEENA ity of [facility] 2022-11-17 2022-11-17 [facility] 1.2.723.834 [id number] [id number] Univers 12:57:56 12:57:56 Encounter Beena SPECIALTY 350.1.13.10 ity of [place] CARE 4.2.7.2.[place] CENTER AT [phone] Wa dictala SHEETS 809 [facility] 2022-11-16 2022-11-16 [facility] 1.2.840.114 [id number] Univers 09:00:00 09:30:00 Visit Yanci COLEMAN 350.1.13.10 i ty rigo [place]2.7.2.[place] [phone] Wa dical NAL [address] [facility] 2022-11-16 2022-11-16 Outpatient R YANCI MICHAEL [facility] 10 [id number] Univers 09:00:00 09:00:00 YANCI MICHAEL i ty of [facility] 2022-11-16 2022-11-16 Orders Doctor DEE 1.2.840.114 [id number] Univers 00:00:00 00:00:00 Only Unassigned, MORGAN 350.1.13.10 ity of [place] [facility] 4.2.7.2.686 Morales as [id number] [facility] [address] 2022-11-12 2022-11-13 Emergency X Colleen VARMA [facility] ERT [id number] Univers 21:44:00 00:14:00 ity of [facility] 2022-11-12 2022-11-13 Emergency Avani [facility] 1.2.840.114 10 [id number] Univers 21:44:00 00:14:00 Karen COLEMAN 350.1.13.10 i ty [facility] 4.2.7.2.[place] [id number] [facility] [address] 2022-11-10 2022-11-10 Patient Doctor [facility] 1.2.713.947 [id number] [id number] Univers 00:00:00 00:00:00 Secure Msg Unassigned, ICAL 350.1.13.10 ity of [place] SCIENCES 4.2.7.2.686 Morales as BLDG 512.0151351 [facility] [address] 2022-11-03 2022-11-03 Pantographer [facility] UNIVERSIT 1.2.840.114 1 [id number] Univers 11:45:00 12:00:00 Visit Parrish Rosenberg [facility] 350.1.13.10 ity of [place] 4.2.7.2.[place] [id number] [facility] [address] 2022-11-03 2022-11-03 Office Jakob Mcfarland UNIVERSIT 1.2.840. 114 [id number] Univers 10:00:00 10:30:00 Visit Sheng Vasquez Y HEALTH 350.1.13. 10 ity of [place] 4.2.7.2.[place] [id number] [place] [address] [place] 2022-11-03 2022-11-03 Outpatient R CHRISTINA [facility] [id number] Univers 10:00:00 10:00:00 SHENG [facility] 2022-11-03 2022-11-03 Telephone BOB Mcfarland 1.2.840.114 10 [id number] Univers 00:00:00 00:00:00 [facility] 350.1.13.10 ity of [place] 4.2.7.2.[place] [id number] [place] 7764[address] [place] 2022-11-03 2022-11-03 Orders Doctor DEE 1.2.840.114 [id number] Univers 00:00:00 00:00:00 Only Unassigned, MORGAN 350.1.13.10 ity of [place] [facility] 4.2.7.2.686 Morales as 478.2350089 [facility] [address] 2022-11-02 2022-11-02 Telephone Christian [facility] 1.2.199.262 6013 [id number] Univers 00:00:00 00:00:00 Yanci COLEMAN 350.1.13.10 i ty [facility] 4.2.7.2.[place]ESS[place] [id number] Wa dical [facility] [address] [facility] 2022-10-29 2022-10-29 Emergency X MG FRYE [facility] ERT [id number] Univers 02:59:00 07:34:00 MG FRYE [facility] 2022-10-29 2022-10-29 Emergency Dalmedo, TRAUMA 1.2.840.114 [id number] Univers 02:59:00 07:34:00 [facility] 350.1.13.10 it y of 4[place]2.7.2.[place] [id number] [facility] [address] 2022-10-29 2022-10-29 Nurse Yong PRICE 1.2.840.114 [id number] Univers 00:00:00 00:00:00 Triage MORGAN Strauss 350.1.13.10 ity of [facility] 4.2.7.2.686 Morales as [id number] [facility] [address] [place] 2022-10-28 2022-10-28 Patient Doctor DEE 1.2.840.114 [id number] Univers 00:00:00 00:00:00 Secure Msg AguillonssMORGAN mayo 350.1.13.10 ity of [facility] 4.2.7.2.686 Morales as [id number] [facility] [address] [place] 2022-10-28 2022-10-28 Telephone BOB Mcfarland 1.2.840.114 10 [id number] Univers 00:00:00 00:00:00 Kangazra [facility] 350.1.13.10 ity of [facility] 4.2.7.2.686 [place] [id number] [facility] [address] [place] 2022-10-27 2022-10-27 Emergency X ROSCOE [facility] ERT [id number] Univers 19:47:00 21:40:00 PITA ity [facility] 2022-10-27 2022-10-27 Emergency [facility] 1.2.189.745 7499 [id number] Univers 19:47:00 21:40:00 Pita COLEMAN 350.1.13.10 ity of [place] 4.2.7.2.[place] [id number] [facility] [address] [place] 2022-10-25 2022-10-25 Telephone DARIEN Mcfarland 1.2.600.529 2007 [id number] Univers 00:00:00 00:00:00 Jakob MORGAN 350.1.13.10 i ty of [facility] 4.2.7.2.686 Morales as [id number] [facility] [address] [place] 2022-10-21 2022-10-21 Telephone Christian [facility] 1.2.888.145 3602 [id number] Univers 00:00:00 00:00:00 Yanci COLEMAN 350.1.13.10 i ty of [place] 4.2.7.2.686 [place] [facility] [id number] [place] 972785 [facility] 2022-10-20 2022-10-20 Emergency X SINGER [facility] ERT [id number] Univers 14:26:00 17:47:00 TYRON ity of [facility] 2022-10-20 2022-10-20 Emergency Singer [facility] 1.2.795.049 [id number] [id number] Univers 14:26:00 17:47:00 Tyron COLEMAN 350.1.13.10 i ty [facility] 4.2.7.2.[place] [id number] [facility] [address] 2022-10-20 2022-10-20 Orders Doctor DEE 1.2.840.114 [id number] Univers 00:00:00 00:00:00 Only Unassigned, MORGAN 350.1.13.10 ity of [place] [facility] 4.2.7.2.686 Morales as [id number] [facility] [address] [place] 2022-10-12 2022-10-12 Nurse DEE Barth 1.2.840.114 [id number] Univers 00:00:00 00:00:00 Triage Jose Carlos MORA 350.1.13.10 it y of [facility] 4.2.7.2.686 Morales as [id number] [facility] [address] [place] 2022-10-12 2022-10-12 Patient Abrol, UNIVERSIT 1.2.127.810 [id number] Univers 00:00:00 00:00:00 Secure Msg [facility] 350.1.13.10 ity of [facility] 4.2.7.2.686 [place] [id number] [facility] [address] [place] 2022-10-11 2022-10-11 Patient Doctor DEE 1.2.840.114 [id number] Univers 00:00:00 00:00:00 Secure Msg Unassigned, MORGAN 350.1.13.10 ity of [place] [facility] 4.2.7.2.686 Morales as [id number] [facility] [address] [place] 2022-10-08 2022-10-09 Emergency X YE [facility] ERT [id number] Univers 22:48:00 01:33:00 JOSE MIGUELO ity [facility] 2022-10-08 2022-10-09 Emergency Ye [facility] 1.2.840.114 10 [id number] Univers 22:48:00 01:33:00 Ruben COLEMAN 350.1.13.10 ity [facility] 4.2.7.2.[place] [id number] [facility] [address] 2022-10-09 2022-10-09 Telephone Abr, [facility] 1.2.840.114 10 [id number] Univers 00:00:00 00:00:00 [facility] 350.1.13.10 ity of [place] 4.2.7.2.[place] 790.5347246 [place] 7764[address] [place] 2022-10-08 2022-10-08 Telephone Abr, [facility] 1.2.840.114 10 [id number] Univers 00:00:00 00:00:00 [facility] 350.1.13.10 ity of [place] 4[place]2.7.2.[place] [id number] [address] 2022-10-07 2022-10-07 Telephone [facility], [facility] 1.2.840.114 10 [id number] Univers 00:00:00 00:00:00 [facility] 350.1.13.10 ity of [place] 4[place]2.7.2.[place] 081.8237544 [address] 2022-09-30 2022-09-30 Telephone [facility] 1.2.946.207 9905 [id number] Univers 00:00:00 00:00:00 Nikiaparnaaditi JARED 350.1.13.10 i ty of [place] 4.2.7.2.[place] 523.7316602 [place] 972785 [facility] 2022-09-24 2022-09-24 Outpatient R GERRY [facility] 099 [id number] Univers 15:30:00 15:30:00 , PANKAJ ity of [facility] 2022-09-21 2022-09-21 Orders Doctor PRICE 1.2.840.114 [id number] Univers 00:00:00 00:00:00 Only Unassigned, MORGAN 350.1.13.10 ity of [place] [facility] 4.2.7.2.686 Morales as [id number] [place] [address] [place] 2022-09-15 2022-09-15 Office Jakob Mcfarland UNIVERSIT 1.2.840. 114 [id number] Univers 07:30:00 08:00:00 Visit Sheng Vasquez [facility] 350.1.13. 10 ity of [facility] 4.2.7.2.686 [place] [id number] [facility] [address] [place] 2022-09-15 2022-09-15 Outpatient R CHRISTINA [facility] [id number] Univers 07:30:00 07:30:00 SHENG itliliana [facility] 2022-09-06 2022-09-06 Patient Doctor DEE 1.2.840.114 [id number] Univers 00:00:00 00:00:00 Secure Msg Unassigned, MORGAN 350.1.13.10 ity of [facility] 4.2.7.2.686 Morales as 554.5482766 [facility] [address] [place] 2022-08-26 2022-08-26 Telephone [facility] 1.2.968.401 [id number] [id number] Univers 00:00:00 00:00:00 Shiwan RUTHER GLEN 350.1.13.10 i ty of [place].2.[place] [id number] Wa dic[address] 2022-08-21 2022-08-21 Telephone [facility] 1.2.730.091 0287 [id number] Univers 00:00:00 00:00:00 Shiwan [facility] 350.1.13.10 i [place] [phone] [address] 2022-08-20 2022-08-20 Orders Doctor DEE 1.2.840.114 [id number] Univers 00:00:00 00:00:00 Only Unassigned, MORGAN 350.1.13.10 ity of [facility] 4.2.7.2.686 Morales as [phone] [facility] [address] [place] 2022-08-19 2022-08-19 Outpatient R NICHOL [facility] [id number] Univers 09:00:00 09:54:18 YAMIL ity [facility] 2022-08-19 2022-08-19 [facility] 1.2.840.114 [id number] Univers 09:00:00 09:54:18 Visit [facility] 350.1.13.10 [place] [id number] [address] OFFICE BUILDING 2022-08-18 2022-08-18 Outpatient R YANCI MICHAEL [facility] [id number] Univers 10:30:00 11:01:57 YANCI MICHAEL i ty of [facility] 2022-08-18 2022-08-18 [facility] 1.2.840.114 [id number] Univers 10:30:00 11:01:57 Visit Yanci COLEMAN 350.1.13.10 i ty [facility] [place] [phone] [place] dical NAL [address] [place] [address] 2022-08-04 2022-08-04 Telephone Christian [facility] 1.2.458.068 [id number] Univers 00:00:00 00:00:00 Yanci GÓMEZNELSON 350.1.13.10 i ty [place] [id number] [place] [address] 2022-08-04 2022-08-04 Orders Doctor PRICE 1.2.840.114 [id number] Univers 00:00:00 00:00:00 Only Unassigned, MORGAN 350.1.13.10 ity of [facility] 4.2.7.2.686 [place] as [phone] [address] 2022-08-01 2022-08-01 Orders Doctor PRICE 1.2.840.114 [id number] Univers 00:00:00 00:00:00 Only Unassigned, MORGAN 350.1.13.10 ity of [facility] 4.2.7.2.686 [place] as [phone] [address] 2022-07-30 2022-07-30 Orders Doctor DEE 1.2.840.114 [id number] Univers 00:00:00 00:00:00 Only Unassigned, MORGAN 350.1.13.10 ity of [facility] 4.2.7.2.686 [place] as [id number] [address] 2022-07-29 2022-07-29 Telephone Christian MNMAGDALENA 1.2.515.284 [id number] Univers 00:00:00 00:00:00 Shiwan [place] 350.1.13.10 i ty [place] [id number] [address] 2022-07-29 2022-07-29 Orders Doctor DEE 1.2.840.114 [id number] Univers 00:00:00 00:00:00 Only Unassigned, MORGAN 350.1.13.10 ity of [facility] 4.2.7.2.686 Mor[place] as [id number] [address] 2022-07-28 2022-07-28 [facility] 1.2.767.778 [id number] Univers 00:00:00 00:00:00 Shiwan [place] 350.1.13.10 i ty [place] [id number] [address] 2022-07-21 2022-07-21 Orders Doctor DEE 1.2.840.114 [id number] Univers 00:00:00 00:00:00 Only Unassigned, MORGAN 350.1.13.10 ity of [facility] 4.2.7.2.686 Morales as [id number] [address] 2022-07-16 2022-07-16 Adriana Mac [facility] 1.2.840.114 [id number] Univers 00:00:00 00:00:00 Steve SPECIALTY 350.1.13.10 ity of [facility] [place] [id number] [address] 2022-07-16 2022-07-16 Telephone Christian [facility] 1.2.446.841 [id number] [id number] Univers 00:00:00 00:00:00 Shiwan [place] 350.1.13.10 i ty of [place] [id number] Wa dical NAL [address] [place] [address] 2022-07-16 2022-07-16 Orders Doctor DEE 1.2.840.114 [id number] Univers 00:00:00 00:00:00 Only Unassigned, MORGAN 350.1.13.10 ity of [place] 4.2.7.2.686 Morales as [id number] [facility] [address] [place] 2022-07-12 2022-07-12 Emergency X [facility] ERT [id number] Univers 20:10:00 22:24:00 ROBERT ity of [facility] 2022-07-12 2022-07-12 Emergency [facility] 1.2.275.114 [id number] Univers 20:10:00 22:24:00 Shaheed S JARED 350.1.13.10 ity of [place] [id number] [place] 8[address] [place] 2022-07-07 2022-07-07 [facility] 1.2.470.138 [id number] 9900 Univers 00:00:00 00:00:00 Yanci COLEMAN 350.1.13.10 i ty of [place] [id number] Wa dical NAL [address] [place] [address] 2022-06-29 2022-06-29 Outpatient KAREN LEAHY [facility] SLE [id number] SLE 00:00:00 00:00:00 JUNIOR 2022-06-24 2022-06-24 Orders Doctor DEE 1.2.840.114 [id number] Univers 00:00:00 00:00:00 Only Unassigned, MORGAN 350.1.13.10 ity of [place] 4.2.7.2.686 Morales as [id number] [facility] [address] [place] 2022-06-22 2022-06-22 Outpatient R YANCI MICHAEL [facility] 10 [id number] Univers 09:00:00 09:40:28 YANCI MICHAEL i ty of [facility] 2022-06-22 2022-06-22 Office [facility] 1.2.840.114 [id number] 42 Univers 09:00:00 09:40:28 Visit Yanci COLEMAN 350.1.13.10 i ty [facility] [place].7.[place] [id number] [place] 584675 [facility] 2022-06-22 2022-06-22 Orders Doctor DEE 1.2.840.114 [id number] 18 Univers 00:00:00 00:00:00 Only Unassigned, MORGAN 350.1.13.10 ity of [place] [place] [facility] 4.2.7.2.686 Morales as [id number] [address] 2022-06-20 2022-06-21 Emergency X [facility] ERT [id number] Univers 22:02:00 04:05:00 MEGHAN ity [facility] 2022-06-20 2022-06-21 Emergency [facility] 1.2.883.460 [id number] [id number] Univers 22:02:00 04:05:00 Meghan COLEMAN 350.1.13.10 i ty of [place] [id number] [place] 866244 [place] 2022-06-18 2022-06-18 Orders Doctor DEE 1.2.840.114 [id number] Univers 00:00:00 00:00:00 Only Unassigned, MORGAN 350.1.13.10 ity of [place] [place] [facility] 4.2.7.2.686 Morales as [id number] [facility] [address] [place] 2022-06-16 2022-06-16 Emergency X [facility] ERT [id number] Univers 15:04:00 22:47:00 FOLUSHO ity [facility] 2022-06-16 2022-06-16 Emergency Ibikunle, TRAUMA 1.2.840.114 [id number] Univers 15:04:00 22:47:00 [facility] 350.1.13.10 [place] [id number] [facility] [address] 2022-05-28 2022-05-29 Emergency X TAMY [facility] ERT [id number] Univers 19:34:00 02:25:00 ROBERT simental of [facility] 2022-05-28 2022-05-29 Emergency Tyron Nuñez [facility] 1.2.840. 114 [id number] Univers 19:34:00 02:25:00 Robert Gloria RUTHER GLEN 350.1.13.10 ity [facility] 4.2.7.2.686 [facility] [id number] [facility] [address] 2022-04-08 2022-04-[address] [facility] [id number] 1619 [facility] 13:00:00 14:00:00 Visit Juniorcecilio Reeves [facility] 2022-04-08 2022-04-08 Outpatient KAREN LEAHY [facility] [id number] 3000 [facility] 11:58:43 11:58:43 JUNIOR 2020-06-11 2020-06-11 Telephone [facility] 1.2.863.335 [id number] 4860 00:00:00 00:00:00 Felix SPECIALTY 350.1.13.10 [facility] 4.2.7.2.686 [place] [id number] 160 2020-06-11 2020-06-11 Telephone [facility] 1.2.247.046 [id number] 4860 Univers 00:00:00 00:00:00 Felix SPECIALTY 350.1.13.[address] [facility] 4.2.7.2.686 Morales as COLONY [id number] [facility] [address] 2020-03-13 2020-03-13 Refill [facility] 1.2.840.114 [id number] 91 00:00:00 00:00:00 Felix SPECIALTY 350.1.13.10 [facility] 4.2.7.2.686 COLONY [id number] [facility] 2020-03-13 2020-03-13 Refill [facility] 1.2.840.114 [id number] 91 Univers 00:00:00 00:00:00 Felix SPECIALTY 350.1.13.10 ity of [facility] 4.2.7.2.686 [place]ales as [place] [id number] [address] 2020-03-11 2020-03-11 Refill [facility] 1.2.840.114 [id number] 30 00:00:00 00:00:00 Felix SPECIALTY 350.1.13.10 [facility] 4.2.7.2.686 COLONY [id number] 401 2020-03-11 2020-03-11 Telephone [facility] 1.2.989.234 [id number] 7886 00:00:00 00:00:00 Felix SPECIALTY 350.1.13.10 [facility] 4.2.7.2.686 [place] [id number] 401 2020-03-11 2020-03-11 Refill [facility] 1.2.840.114 [id number] 30 Univers 00:00:00 00:00:00 Felix SPECIALTY 350.1.13.10 ity of [facility] 4.2.7.2.686 [place]ales as [place] [id number] [address] 2020-03-11 2020-03-11 Telephone [facility] 1.2.492.468 [id number] 7886 Univers 00:00:00 00:00:00 Felix SPECIALTY 350.1.13.10 ity of [facility] 4.2.7.2.686 [place]ales as [place] [id number] [address] 2020-03-06 2020-03-06 Telephone [facility] 1.2.041.607 2051 4433 00:00:00 00:00:00 Felix SPECIALTY 350.1.13.10 [facility] 4.2.7.2.686 COLONY [id number] [facility] 2020-03-06 2020-03-06 Telephone [facility] 1.2.929.503 [id number] 4433 Univers 00:00:00 00:00:00 Felix SPECIALTY 350.1.13.10 ity of [facility] 4.2.7.2.686 Morales as [place] [id number] [address] 2020-03-04 2020-03-04 Refill [facility] 1.2.840.114 [id number] 54 00:00:00 00:00:00 Felix SPECIALTY 350.1.13.10 [place] 4.2.7.2.686 COLONY [id number] 401 2020-03-04 2020-03-04 [facility]ill [facility] 1.2.840.114 [id number] 54 Univers 00:00:00 00:00:00 Felix SPECIALTY 350.1.13.10 ity of [facility] 4.2.7.2.686 Morales as [place] [id number] [address] 2019-11-07 2019-11-07 Refill [facility] 1.2.840.114 [id number] 83 00:00:00 00:00:00 Felix SPECIALTY 350.1.13.10 [place] 4.2.7.2.686 [place] [id number] 401 2019-11-07 2019-11-07 [facility] [place] 1.2.840.114 [id number] 83 Univers 00:00:00 00:00:00 Felix SPECIALTY 350.1.13.10 ity of [facility] 4.2.7.2.686 [place]ales as [place] [id number] [address] 2019-10-23 2019-10-23 Telephone [facility] 1.2.850.946 [id number] 7946 00:00:00 00:00:00 Felix SPECIALTY 350.1.13.10 [place] 4.2.7.2.686 COLONY [id number] [facility] 2019-10-23 2019-10-23 Telephone [facility] 1.2.217.727 [id number] 7946 Univers 00:00:00 00:00:00 Felix SPECIALTY 350.1.13.10 ity of [facility] 4.2.7.2.686 [place]ales as [place] [id number] [address] 2019-10-22 2019-10-22 [facility] [place] 1.2.840.114 [id number] 87 00:00:00 00:00:00 Felix SPECIALTY 350.1.13.10 [place] 4.2.7.2.686 COLONY [id number] 401 2019-10-22 2019-10-22 [facility] [place] 1.2.840.114 [id number] 87 Univers 00:00:00 00:00:00 Felix SPECIALTY 350.1.13.10 ity of [facility] 4.2.7.2.686 [place]ales as [place] [id number] [address] 2019-09-06 2019-09-06 Telephone [facility] 1.2.742.987 [id number] 8654 00:00:00 00:00:00 Felix SPECIALTY 350.1.13.10 [place] 4.2.7.2.686 [place]ON[place] [id number] 401 2019-09-06 2019-09-06 Telephone [facility] 1.2.716.365 [id number] 8654 [facility] 00:00:00 00:00:00 Felix SPECIALTY 350.1.13.10 ity of [place] 4.2.7.2.686 Morales as [place] [id number] [address] 2019-08-14 2019-08-14 Telephone [facility] 1.2.287.166 0627 3924 00:00:00 00:00:00 Felix SPECIALTY 350.1.13.10 [place] 4.2.7.2.686 [place] [id number] [facility] 2019-08-14 2019-08-14 Telephone [facility] 1.2.796.356 5045 3924 [facility] 00:00:00 00:00:00 Felix SPECIALTY 350.1.13.10 ity of [place] 4.2.7.2.686 [place]ales as [place] [id number] [address] 2019-08-03 2019-08-03 Telephone [facility] 1.2.655.323 [id number] 8343 00:00:00 00:00:00 Felix SPECIALTY 350.1.13.10 [place] 4.2.7.2.686 [place] [id number] [facility] 2019-08-03 2019-08-03 Telephone [facility] 1.2.832.099 [id number] 8343 [facility] 00:00:00 00:00:00 Felix SPECIALTY 350.1.13.10 ity of [place] 4.2.7.2.686 Morales as [place] [id number] [address] 2019-07-31 2019-07-31 Telephone [place], [facility] 1.2.755.055 0465 1156 00:00:00 00:00:00 Felix SPECIALTY 350.1.13.10 [place] 4.2.7.2.686 [place] [id number] [facility] 2019-07-31 2019-07-31 Telephone [facility] 1.2.848.121 7451 1156 Univers 00:00:00 00:00:00 Felix SPECIALTY 350.1.13.10 ity of [facility] 4.2.7.2.686 [place]ales as [place] [id number] [address] 2019-03-27 2019-03-27 [place] [facility] 1.2.840.114 713 77151 00:00:00 00:00:00 Steve SPECIALTY 350.1.13.10 [facility] 4.2.7.2.686 [place] [id number] 147 2019-03-27 2019-03-27 [facility] 1.2.840.114 [id number] 88 00:00:00 00:00:00 Felix SPECIALTY 350.1.13.10 [facility] 4.2.7.2.686 COLON[place] [id number] [facility] 2019-03-27 2019-03-27 [place] [facility] 1.2.840.114 713 02789 [facility] 00:00:00 00:00:00 Steve SPECIALTY 350.1.13.10 ity of [facility] [place]2.[place] [id number] [address] 2019-03-27 2019-03-27 Adriana [facility] 1.2.840.114 [id number] 88 Univers 00:00:00 00:00:00 Felix SPECIALTY 350.1.13.10 ity of [facility] 4.2.7.2.686 [place]ales as [place] [id number] [address] 2019-03-23 2019-03-23 [place] [facility] 1.2.840.114 [id number] 00:00:00 00:00:00 Zana M SPECIALTY 350.1.13.10 [place] 4.2.7.2.686 [place]ON[place] [id number] [facility] 2019-03-23 2019-03-23 [place] [facility]zen[facility] 1.2.840.114 [id number] Univers 00:00:00 00:00:00 Zana M SPECIALTY 350.1.13.10 [place]y of [place]2.[place] [id number] [address] 2019-03-22 2019-03-22 [facility] 1.2.840.114 [id number] 102 00:00:00 00:00:00 Steve SPECIALTY 350.1.13.10 [facility] 4.2.7.2.686 [place] [id number] 147 2019-03-22 2019-03-22 [facility] 1.2.840.114 [id number] 102 [facility] 00:00:00 00:00:00 Steve SPECIALTY 350.1.13.10 ity of [facility] [place]2.7.2.[place] [id number] [address] 2019-03-13 2019-03-13 Telephone [facility] 1.2.303.045 [id number] 6717 00:00:00 00:00:00 Felix SPECIALTY 350.1.13.10 [facility] 4.2.7.2.686 [place] [id number] 401 2019-03-13 2019-03-13 Telephone [facility] 1.2.862.410 4464 6717 [facility] 00:00:00 00:00:00 Felix SPECIALTY 350.1.13.10 ity of [facility] 4.2.7.2.686 Morales as [place] [id number] [address] 2019-03-06 2019-03-06 [facility] 1.2.435.718 6309 9621 00:00:00 00:00:00 Felix SPECIALTY 350.1.13.10 [facility] 4.2.7.2.686 [place] [id number] 401 2019-03-06 2019-03-06 Telephone [facility] 1.2.947.523 [id number] 9621 [facility] 00:00:00 00:00:00 Felix SPECIALTY 350.1.13.10 ity of [facility] 4.2.7.2.686 [place]ales as [place] [id number] [address] 2019-03-02 2019-03-02 Telephone [facility] 1.2.840.114 [id number] Univers 00:00:00 00:00:00 Steve SPECIALTY 350.1.13.10 ity of [facility] [place].2.[place] [id number] [address] 2019-03-02 2019-03-02 Telephone Jethro [facility] 1.2.361.753 [id number] 0622 [facility] 00:00:00 00:00:00 Felix SPECIALTY 350.1.13.10 ity of [facility] 4.2.7.2.686 [place]ales as [place] [id number] [address] 2019-03-01 2019-03-01 Office Jethro [facility] 1.2.840.114 [id number] 10:54:40 12:12:56 Visit Felix SPECIALTY 350.1.13.10 [facility] 4.2.7.2.686 COL[place] 525.5445565 [facility] 2019-03-01 2019-03-01 Office Jethro [facility] 1.2.840.[id number] [place] [address] 10:54:40 12:12:56 Visit Felix SPECIALTY 350.1.13.10 ity of [facility] 4.2.7.2.686 Morales as [place] [id number] [address] 2019-02-23 2019-02-23 Nurse Nurse, Namrata Moyer [facility] 1.2.840.114 [id number] [facility] 10:22:25 10:52:25 Visit Felix Morelos SPECIALTY 350.1 .13.10 ity of [place].2.[place] [id number] [address] 2019-02-22 2019-02-22 Telephone Jethro [facility] 1.2.867.959 [id number] 3224 Univers 00:00:00 00:00:00 Felix SPECIALTY 350.1.13.10 ity of [facility] 4.2.7.2.686 [place]ales as [place] 506.1969315 [address] 2019-02-21 2019-02-21 Telephone Donna [facility] 1.2.840.114 [id number] Univers 00:00:00 00:00:00 Zana Antonio SPECIALTY 350.1.13.10 ity of [place].2.[place] [id number] [address] 2019-02-13 2019-02-13 Adriana Mac [facility] 1.2.840.[id number] [place] [address] 00:00:00 00:00:00 Steve SPECIALTY 350.1.13.10 ity of [place] 4.2.7.2.686 Josh linda COLONY [id number] [facility] [address] 2018-03-08 2018-03-08 Office [facility] 1.2.840.114 [id number] Univers 13:45:32 16:04:10 Visit Felix SPECIALTY 350.1.13.10 ity of [facility] 4.2.7.2.686 Morales as COLONY [id number] [facility] [address] 2017-06-21 2017-06-21 Emergency ER NGEIN RUST [facility] [id number] [place] 14:06:00 18:01:00 -[id number] [facility] 2017-03-09 2017-03-09 Emergency ER DAWSON, [facility] [id number] [place] 13:59:00 16:36:00 BOB -[id number] [facility] 2016-07-13 2016-07-13 Emergency ER GLORIA, [facility] [id number] [address] [place] 18:32:00 21:47:00 CLEMENT -[id number] [facility] Results Test Description Test Time Test Comments [...] See_Comment [Au tomated message] The system which [employer] Messenger (MM) nerated this result transmit rosanne reference range: [...] g/dL 31.2-35.0 H RDW-SD (test code = 81773-5) 39.5 fL 38.5-51.6 RDW-CV (test code = 788-0) 12.0 % 12.1-15.4 L PLT (test code = 777-3) 500 See_Comment H [Au tomated message] The system which ge nerated this result transmit rosanne reference range: 150 - 32 8 10*3/?L. The reference range was not used to interpret th is result as normal/abnormal . MPV (test code = 51640-4) 8.6 fL 9.8-13.0 L NRBC/100 WBC (test code = 0.0 See_Comment [ Automated message] The 5356697969) system which [employer] Messenger (MM) nerated this result transmit rosanne reference range: 0.0 - 10 .0 /100 WBCs. The reference r genaro was not used to interpr et this result as normal/abnor mal. NRBC x10^3 (test code = See_Comment [Au tomated message] The 8342268427) system which [employer] Messenger (MM) nerated this result transmit rosanne reference range: 10*3/?L. The reference range was not u sed to interpret this result as normal/abnormal . GRAN MAT (NEUT) % (test code 53.5 % = 770-8) IMM GRAN % (test code = 0.70 % 0999935312) LYMPH % (test code = 736-9) 34.6 % MONO % (test code = 5905-5) 11.0 % EOS % (test code = 713-8) 0.0 % BASO % (test code = 706-2) 0.2 % GRAN MAT x10^3(ANC) (test 7.34 10*3/uL 1.99-6.95 H code = 7163005402) IMM GRAN x10^3 (test code = 0.09 10*3/uL 0.00-0.06 H 4580498314) LYMPH x10^3 (test code = 4.73 10*3/uL 1.09-3.23 H 731-0) MONO x10^3 (test code = 1.50 10*3/uL 0.36-1.02 H 742-7) EOS x10^3 (test code = 0.06-0.53 L 711-2) BASO x10^3 (test code = 0.03 10*3/uL 0.01-0.09 704-7) HJ BODIES (test code = Present A 7793-3) SIDEROTIC GRAN (test code = Suggestive of A 7795-8) REACT LYMPHS (test code = Rare 4306947435) Lab Interpretation (test Abnormal code = 19010-3) [facility] 04:38:49 Test Item Value Reference Range Interpretation Comments LIPASE (test code = 8191609787) 70 U/L 0-220 Lab Interpretation (test code = Normal 88243-9) [facility]OLIC PANEL (26093)2023-03-20 04:38:49 Test Item Value Reference Range Interpretation Comments NA (test code = 138 mmol/L 135-145 8953479466) K (test code = 3.5 mmol/L 3.5-5.0 6933681081) CL (test code = 101 mmol/L 98-108 2911740758) CO2 TOTAL (test code = 27 mmol/L 23-31 9320274489) AGAP (test code = 10 2-16 0167929218) BUN (test code = 12 mg/dL 7-23 1140928499) GLUCOSE (test code = 123 mg/dL 70-110 H 9067524014) CREATININE (test code = 0.80 mg/dL 0.60-1.25 8835795221) TOTAL BILI (test code = 0.8 mg/dL 0.1-1.3 1546336988) CALCIUM (test code = 9.8 mg/dL 8.6-10.6 4779773735) T PROTEIN (test code = 7.3 g/dL 6.3-8.2 4743078069) ALBUMIN (test code = 4.5 g/dL 3.5-5.0 1286397587) ALK PHOS (test code = 111 U/L 34-122 6897282807) ALTv (test code = 19 U/L 50 1742-6) AST(SGOT) (test code = 23 U/L 13-40 8548606899) eGFR (test code = 124.5 mL/min/1.73m2 7620219083) JAMAL (test code = JAMAL) Association of [...] tests). Lab Interpretation Abnormal (test code = 37580-8) General acute hospital WITH [id number] 00:39:04 Test Item Value Reference Range Interpretation Comments WBC (test code = 16.24 See_Comment H [Automated 6324-2) message] The sy stem which generated this result transmitted reference range : 4.20 - 10.70 10*3/?L. The reference range was not used to interpret this result as normal/abnormal . RBC (test code = 5.34 See_Comment [Automated 906-3) message] The sy stem which generated this [...] RDW-SD (test code = 39.5 fL 38.5-51.6 29382-9) RDW-CV (test code = 12.1 % 12.1-15.4 788-0) PLT (test code = 533 See_Comment H [Automated 777-3) message] The sy stem which generated this result transmitted reference range : 150 - 328 10*3/ ?L. The reference r genaro was not used to interpret this result as normal/abnormal . MPV (test code = 8.9 fL 9.8-13.0 L 64606-3) NRBC/100 WBC (test 0.0 See_Comment [Automat ed code = 2060886123) message] The system which generated this result transmitted reference range : 0.0 - 10.0 /100 WBCs. The refer ence range was not u sed to interpret th is result as normal/abnormal . NRBC x10^3 (test code See_Comment [Auto mated = 5615474548) message] The s ystem which generated this result transmitted reference range : 10*3/?L. The reference range was not used to interpret this result as normal/abnormal . GRAN MAT (NEUT) % 47.4 % (test code = 770-8) IMM GRAN % (test code 0.70 % = 0668915746) LYMPH % (test code = 43.5 % 736-9) MONO % (test code = 8.1 % 5905-5) EOS % (test code = 0.0 % 713-8) BASO % (test code = 0.3 % 706-2) GRAN MAT x10^3(ANC) 7.69 10*3/uL 1.99-6.95 H (test code = 5184087255) IMM GRAN x10^3 (test 0.12 10*3/uL 0.00-0.06 H code = 1478487768) LYMPH x10^3 (test code 7.07 10*3/uL 1.09-3.23 H = 731-0) MONO x10^3 (test code 1.31 10*3/uL 0.36-1.02 H = 742-7) EOS x10^3 (test code = 0.06-0.53 L 711-2) BASO x10^3 (test code 0.05 10*3/uL 0.01-0.09 = 704-7) Lab Interpretation Abnormal (test code = 46747-6) [facility] PAN[facility] (19128)2023-03-10 00:18:33 Test Item Value Reference Range Interpretation Comments NA (test code = 141 mmol/L 135-145 0334974515) K (test code = 3.8 mmol/L 3.5-5.0 4494712779) CL (test code = 105 mmol/L 98-108 1977021127) CO2 TOTAL (test code = 26 mmol/L 23-31 3729146428) AGAP (test code = 10 2-16 7394425574) BUN (test code = 15 mg/dL 7-23 2558333206) GLUCOSE (test code = 101 mg/dL 70-110 7438368561) CREATININE (test code = 0.69 mg/dL 0.60-1.25 8764252400) TOTAL BILI (test code = 0.8 mg/dL 0.1-1.6 4707123907) CALCIUM (test code = 9.5 mg/dL 8.6-10.6 9685341996) T PROTEIN (test code = 8.3 g/dL 6.3-8.2 H 3280698779) ALBUMIN (test code = 4.9 g/dL 3.5-5.0 4803426939) ALK PHOS (test code = 110 U/L 34-122 2811793006) ALTv (test code = 23 U/L 5-50 1742-6) AST(SGOT) (test code = 33 U/L 13-40 6014851820) eGFR (test code = 147.7 mL/min/1.73m2 3577435490) JAMAL (test code = JAMAL) Association of [...] tests). Lab Interpretation Abnormal (test code = 89908-6) [id number] 23:57:46 Test Item Value Reference Range Interpretation Comments NT-proBNP (test code = 78720-4) <=125 Lab Interpretation (test code = Normal 18597-4) [facility] [id number] 23:56:50 Test Item Value Reference Range Interpretation Comments TROPONIN I (test code = 0.007 ng/mL <=0.034 [id number]) JAMAL (test code = JAMAL) Reference (Normal) [...] biotin. Lab Interpretation Normal (test code = 08530-4) [facility]. METABOLIC PANEL (43360)2023-03-03 23:45:54 Test Item Value Reference Range Interpretation Comments NA (test code = 142 mmol/L 135-145 9134765691) K (test code = 3.4 mmol/L 3.5-5.0 L 8543993388) CL (test code = 102 mmol/L 98-108 4640291363) CO2 TOTAL (test code = 25 mmol/L 23-31 2450814854) AGAP (test code = 15 2-16 2348327006) BUN (test code = 14 mg/dL 7-23 9942466946) GLUCOSE (test code = 119 mg/dL 70-110 H 7042731153) CREATININE (test code = 0.79 mg/dL 0.60-1.25 1034794888) TOTAL BILI (test code = 1.0 mg/dL 0.1-1.9 7891810724) CALCIUM (test code = 9.5 mg/dL 8.6-10.6 7943451737) T PROTEIN (test code = 8.1 g/dL 6.3-8.2 8284824727) ALBUMIN (test code = 4.8 g/dL 3.5-5.0 6033410781) ALK PHOS (test code = 106 U/L 34-122 5726261101) ALTv (test code = 21 U/L 5-50 1742-6) AST(SGOT) (test code = 44 U/L 13-40 H 2440501859) eGFR (test code = 126.4 mL/min/1.73m2 2239165187) JAMAL (test code = JAMAL) Association of [...] tests). Lab Interpretation Abnormal (test code = 33382-1) [facility] [id number] 06:35:36 Test Item Value Reference Range Interpretation Comments WBC (test code = 6690-2) 13.74 See_Comment H [A utomated message] The system [employer] generated this result transmit rosanne reference range : 4.20 - 10.70 10*3/?L. The reference range was not used to interpret this result as normal/abnormal . RBC (test code = 789-8) 5.01 See_Comment [Au tomated message] The system [employer] generated this result transmit rosanne reference range [...] RDW-SD (test code = 40.8 fL 38.5-51.6 66797-3) RDW-CV (test code = 12.3 % 12.1-15.4 788-0) PLT (test code = 777-3) 510 See_Comment H [Au tomated message] The system [facility] generated this result transmit rosanne reference range : 150 - 328 10*3/?L. The reference range was not used to interpret this result as normal/abnormal . MPV (test code = 9.2 fL 9.8-13.0 L 63354-2) NRBC/100 WBC (test code 0.0 See_Comment [Au tomated message] = 5806199424) The system [facility] generated this result transmit rosanne reference range : 0.0 - 10.0 /100 WBC s. The reference r genaro was not used to interpret this result as normal/abnormal . NRBC x10^3 (test code = See_Comment [Au tomated message] 5698492891) The system [facility] generated this result transmit rosanne reference range : 10*3/?L. The reference range was not used to interpret this result as normal/abnormal . SEG % (test code = 40 % 33-76 70655-7) LYMPH % (test code = 51 % 14-54 76559-5) MONO % (test code = 9 % 0-4 H 15755-7) PLT ESTIMATE (test code Increased Normal A = 9317-9) GIANT PLATELETS (test Present See_Comment A [Auto mated message] code = 5908-9) The system [facility] generated this result transmit rosanne reference range : (none). The reference range was not used to interpret this result as normal/abnormal . Lab Interpretation (test Abnormal code = 09394-6) [facility] [id number] 06:11:22 Test Item Value Reference Range Interpretation Comments TROPONIN I (test code = 0.002 ng/mL <=0.034 2840712051) JAMAL (test code = JAMAL) Reference (Normal) [...] biotin. Lab Interpretation Normal (test code = 72513-0) [facility]. METABOLIC PANEL (14044)2023-02-01 06:00:02 Test Item Value Reference Range Interpretation Comments NA (test code = 141 mmol/L 135-145 2280578373) K (test code = 4.0 mmol/L 3.5-5.0 1632310916) CL (test code = 103 mmol/L 98-108 6926365610) CO2 TOTAL (test code 27 mmol/L 23-31 = 2158229293) AGAP (test code = 11 2-16 5981384630) BUN (test code = 15 mg/dL 7-23 9374563519) GLUCOSE (test code = 93 mg/dL 70-110 4211796130) CREATININE (test code 0.91 mg/dL 0.60-1.25 = 9621640879) TOTAL BILI (test code 0.8 mg/dL 0.1-1.1 = 8692571404) CALCIUM (test code = 9.8 mg/dL 8.6-10.6 9992538951) T PROTEIN (test code 7.3 g/dL 6.3-8.2 = 1533835407) ALBUMIN (test code = 4.6 g/dL 3.5-5.0 7413506482) ALK PHOS (test code = 117 U/L 34-122 1996220940) ALTv (test code = 19 U/L 5-50 1742-6) AST(SGOT) (test code 22 U/L 13-40 = 3074242029) eGFR (test code = 107.3 mL/min/1.73m2 2596435208) JAMAL (test code = JAMAL) Association of [...] or urine or abnormalities in imaging tests). [facility] GLUCOSE (AUTOMATED)2023-01-18 14:52:41 Test Item Value Reference Range Interpretation Comments POCT GLU (test code = 3903462234) 110 mg/dL 70-110 Lab Interpretation (test code = Normal 86606-6) [facility] GLUCOSE (AUTOMATED)2023-01-18 14:52:41 Test Item Value Reference Range Interpretation Comments POCT GLU (test code = 4800016062) 110 mg/dL 70-110 Lab Interpretation (test code = Normal 58177-2) General acute hospital WITH [id number] 15:02:31 Test Item Value Reference Range Interpretation [...] RDW-SD (test code = 42.2 fL 38.5-51.6 54324-6) RDW-CV (test code = 12.5 % 12.1-15.4 788-0) PLT (test code = 510 See_Comment H [Automated 777-3) message] The system which generated this result transmit rosanne reference range : 150 - 328 10*3/ ?L. The reference range was not u sed to interpret th is result as normal/abnormal . MPV (test code = 8.8 fL 9.8-13.0 L 96855-1) NRBC/100 WBC (test 0.0 See_Comment [Automat ed code = 9003211010) message] The system which generated this result transmit rosanne reference range : 0.0 - 10.0 /100 WBCs. The reference range was not used to interpret this result as normal/abnormal . NRBC x10^3 (test code See_Comment [Auto mated = 4679964860) message] The system which generated this result transmit rosanne reference range : 10*3/?L. The reference range was not used to interpret this result as normal/abnormal . GRAN MAT (NEUT) % 51.0 % (test code = 770-8) IMM GRAN % (test code 0.80 % = 4931173021) LYMPH % (test code = 37.1 % 736-9) MONO % (test code = 10.6 % 5905-5) EOS % (test code = 0.0 % 713-8) BASO % (test code = 0.5 % 706-2) GRAN MAT x10^3(ANC) 5.65 10*3/uL 1.99-6.95 (test code = 3869413576) IMM GRAN x10^3 (test 0.09 10*3/uL 0.00-0.06 H code = 8345697929) LYMPH x10^3 (test code 4.10 10*3/uL 1.09-3.23 [...] 7795-8) REACT LYMPHS (test Rare code = 2916058717) Lab Interpretation Abnormal (test code = 90533-0) [facility] METABOLIC PANEL (NA, K, CL, CO2, GLUCOSE, BUN, CREATININE, CA)2023-01-15 13:56:39 Test Item Value Reference Range Interpretation Comments NA (test code = 142 mmol/L 135-145 3519401022) K (test code = 3.9 mmol/L 3.5-5.0 5624281787) CL (test code = 105 mmol/L 98-108 2689088914) CO2 TOTAL (test code 26 mmol/L 23-31 = 0425495164) AGAP (test code = 11 2-16 1400528849) BUN (test code = 9 mg/dL 7-23 6998089270) GLUCOSE (test code = 97 mg/dL 70-110 2899366462) CREATININE (test code 0.73 mg/dL 0.60-1.25 = 3717733533) CALCIUM (test code = 9.5 mg/dL 8.6-10.6 6335811457) eGFR (test code = 138.4 mL/min/1.73m2 2562967661) JAMAL (test code = JAMAL) Association of [...] or urine or abnormalities in imaging tests). [facility] -2023-01-15 13:06:00 Test Item Value Reference Range Interpretation Comments ABO & RH (test code = 20) O Negative IAT (test code = 1185) Negative [facility]23-[facility] 11:37:51 Test Item Value Reference Range Interpretation Comments LIPASE (test code = 4906378781) 64 U/L 0-220 Lab Interpretation (test code = Normal 55160-0) [facility]KEPPRA (LEVETIRACETAM)2022-10-29 10:13:11 Test Item Value Reference Range Interpretation Comments KEPPRA (test code = 12-46 L 1913627702) JAMAL (test code = JAMAL) Therapeutic range: 12-46 ?g/mL ? ?Toxic: Not well established.Test developed and characteristics determined by [facility] Laboratory Services. Lab Interpretation Abnormal (test code = 17221-4) [facility]. METABOLIC PANEL (12276)2022-10-29 10:01:02 Test Item Value Reference Range Interpretation Comments NA (test code = 139 mmol/L 135-145 6593315546) K (test code = 4.4 mmol/L 3.5-5.0 9950339048) CL (test code = 105 mmol/L 98-108 6843641517) CO2 TOTAL (test code 28 mmol/L 23-31 = 9845717858) AGAP (test code = 6 2-16 2548539374) BUN (test code = 14 mg/dL 7-23 7637686013) GLUCOSE (test code = 100 mg/dL 70-110 5031123412) CREATININE (test code 0.78 mg/dL 0.60-1.25 = 8929705331) TOTAL BILI (test code 0.9 mg/dL 0.1-1.1 = 1656630255) CALCIUM (test code = 9.6 mg/dL 8.6-10.6 3938184269) T PROTEIN (test code 7.1 g/dL 6.3-8.2 = 7531419675) ALBUMIN (test code = 4.7 g/dL 3.5-5.0 6422899847) ALK PHOS (test code = 114 U/L 34-122 4870199453) ALTv (test code = 21 U/L 5-50 1742-6) AST(SGOT) (test code 37 U/L 13-40 = 8677143280) eGFR (test code = 129.6 mL/min/1.73m2 9478402946) JAMAL (test code = JAMAL) Association of [...] or urine or abnormalities in imaging tests). [facility]2023-[facility]-13 10:01:02 Test Item Value Reference Range Interpretation Comments MAGNESIUM (test code = 0093429901) 2.2 mg/dL 1.7-2.4 Lab Interpretation (test code = Normal 03908-6) General acute hospital WITH [id number] 09:57:59 Test Item Value Reference Range Interpretation Comments WBC (test code = 14.30 See_Comment H [Automated 6690-2) message] The sy stem which generated this result transmitted reference range : 4.50 - 13.50 10*3/?L. The reference range was not used to interpret this result as normal/abnormal . RBC (test code = 5.37 See_Comment H [Automated 219-8) message] The sy stem which generated this [...] RDW-SD (test code = 39.8 fL 38.5-49.0 69680-7) RDW-CV (test code = 12.2 % 11.5-14.0 788-0) PLT (test code = 500 See_Comment H [Automated 777-3) message] The sy stem which generated this result transmitted reference range : 133 - 320 10*3/ ?L. The reference r genaro was not used to interpret this result as normal/abnormal . MPV (test code = 8.9 fL 9.3-12.9 L 01815-1) NRBC/100 WBC (test 0.0 See_Comment [Automat ed code = 4834749305) message] The system which generated this result transmitted reference range : 0.0 - 10.0 /100 WBCs. The refer ence range was not u sed to interpret th is result as normal/abnormal . NRBC x10^3 (test code See_Comment [Auto mated = 4445311903) message] The s ystem which generated this result transmitted reference range : 10*3/?L. The reference range was not used to interpret this result as normal/abnormal . GRAN MAT (NEUT) % 36.2 % (test code = 770-8) IMM GRAN % (test code 0.90 % = 3798528257) LYMPH % (test code = 53.2 % 736-9) MONO % (test code = 9.4 % 5905-5) EOS % (test code = 0.0 % 713-8) BASO % (test code = 0.3 % 706-2) GRAN MAT x10^3(ANC) 5.17 10*3/uL 1.50-10.30 (test code = 0331837080) IMM GRAN x10^3 (test 0.13 10*3/uL 0.00-0.06 H code = 2015577030) LYMPH x10^3 (test code 7.61 10*3/uL 0.70-7.40 H = 731-0) MONO x10^3 (test code 1.35 10*3/uL 0.00-0.50 H = 742-7) EOS x10^3 (test code = 0.00-0.40 711-2) BASO x10^3 (test code 0.04 10*3/uL 0.00-0.10 = 704-7) HJ BODIES (test code = Present A 7793-3) REACT LYMPHS (test Rare code = 5100708377) Lab Interpretation Abnormal (test code = 73156-5) General acute hospital WITH [id number] 02:35:47 Test Item Value Reference Range Interpretation [...] RDW-SD (test code = 39.6 fL 38.5-49.0 52068-9) RDW-CV (test code = 12.1 % 11.5-14.0 788-0) PLT (test code = 486 See_Comment H [Automated 777-3) message] The sy stem which generated this result transmitted reference range : 133 - 320 10*3/ ?L. The reference r genaro was not used to interpret this result as normal/abnormal . MPV (test code = 9.1 fL 9.3-12.9 L 85463-7) NRBC/100 WBC (test 0.0 See_Comment [Automat ed code = 3520165334) message] The system which generated this result transmitted reference range : 0.0 - 10.0 /100 WBCs. The refer ence range was not u sed to interpret th is result as normal/abnormal . NRBC x10^3 (test code See_Comment [Auto mated = 2956362294) message] The s ystem which generated this result transmitted reference range : 10*3/?L. The reference range was not used to interpret this result as normal/abnormal . SEG % (test code = 40 % 33-76 26634-9) LYMPH % (test code = 50 % 15-55 78074-8) MONO % (test code = 10 % 0-4 H 84136-5) ANC (test code = 4.67 10*3/uL 1.50-10.30 753-4) Lab Interpretation Abnormal (test code = 65404-9) [facility] [id number] 02:22:04 Test Item Value Reference Range Interpretation Comments TROPONIN I (test code = 0.002 ng/mL <=0.034 7522345617) JAMAL (test code = JAMAL) Reference (Normal) [...] biotin. Lab Interpretation Normal (test code = 97201-2) [facility] HospitalD-[id number] 02:12:53 Test Item Value Reference Interpretation Comments Range D-DIMER (test code = See_Comment [Autom ated 8908700594) message] The system which generated this result [...] diagnosis. Lab Interpretation Normal (test code = 51993-4) [facility]. METABOLIC PANEL (98485)2022-10-28 02:10:47 Test Item Value Reference Range Interpretation Comments NA (test code = 141 mmol/L 135-145 6994929855) K (test code = 4.1 mmol/L 3.5-5.0 0483075892) CL (test code = 107 mmol/L 98-108 7675323058) CO2 TOTAL (test code 23 mmol/L 23-31 = 5373583087) AGAP (test code = 11 2-16 0481400105) BUN (test code = 15 mg/dL 7-23 0343383518) GLUCOSE (test code = 104 mg/dL 70-110 0316591302) CREATININE (test code 0.73 mg/dL 0.60-1.25 = 9838437867) TOTAL BILI (test code 0.8 mg/dL 0.1-1.1 = 8916901583) CALCIUM (test code = 9.4 mg/dL 8.6-10.6 2675760932) T PROTEIN (test code 7.0 g/dL 6.3-8.2 = 7517161425) ALBUMIN (test code = 4.6 g/dL 3.5-5.0 3906194752) ALK PHOS (test code = 109 U/L 34-122 2223857632) ALTv (test code = 21 U/L 5-50 1742-6) AST(SGOT) (test code 23 U/L 13-40 = 1144324958) eGFR (test code = 139.9 mL/min/1.73m2 1763878302) JAMAL (test code = JAMAL) Association of [...] or urine or abnormalities in imaging tests). [facility] acute hospital WITH [id number] 05:00:52 Test Item Value Reference Range Interpretation Comments WBC (test code = 11.83 See_Comment [Automated 6607-2) message] The system which generated this result transmit rosanne reference range : 4.50 - 13.50 10*3/?L. The reference range was not used to interpret this result as normal/abnormal . RBC (test code = 4.93 See_Comment [Automated 921-8) message] The system which generated this result [...] RDW-SD (test code = 39.3 fL 38.5-49.0 24769-6) RDW-CV (test code = 11.9 % 11.5-14.0 788-0) PLT (test code = 450 See_Comment H [Automated 777-3) message] The system which generated this result transmit rosanne reference range : 133 - 320 10*3/ ?L. The reference range was not u sed to interpret th is result as normal/abnormal . MPV (test code = 9.2 fL 9.3-12.9 L 42721-0) NRBC/100 WBC (test 0.0 See_Comment [Automat ed code = 0356083589) message] The system which generated this result transmit rosanne reference range : 0.0 - 10.0 /100 WBCs. The reference range was not used to interpret this result as normal/abnormal . NRBC x10^3 (test code See_Comment [Auto mated = 2604341723) message] The system which generated this result transmit rosanne reference range : 10*3/?L. The reference range was not used to interpret this result as normal/abnormal . GRAN MAT (NEUT) % 34.0 % (test code = 770-8) IMM GRAN % (test code 0.60 % = 5536092559) LYMPH % (test code = 54.3 % 736-9) MONO % (test code = 9.2 % 5905-5) EOS % (test code = 1.6 % 713-8) BASO % (test code = 0.3 % 706-2) GRAN MAT x10^3(ANC) 4.03 10*3/uL 1.50-10.30 (test code = 2703484400) IMM GRAN x10^3 (test 0.07 10*3/uL 0.00-0.06 H code = 2489633484) LYMPH x10^3 (test code 6.42 10*3/uL 0.70-7.40 = 731-0) MONO x10^3 (test code 1.09 10*3/uL 0.00-0.50 H = 742-7) EOS x10^3 (test code = 0.19 10*3/uL 0.00-0.40 711-2) BASO x10^3 (test code 0.03 10*3/uL 0.00-0.10 = 704-7) SIDEROTIC GRAN (test Suggestive of A code = 7795-8) REACT LYMPHS (test Rare code = 7215000931) Lab Interpretation Abnormal (test code = 37131-2) [facility]. METABOLIC PANEL (53248)2022-10-09 04:54:22 Test Item Value Reference Range Interpretation Comments NA (test code = 142 mmol/L 135-145 4641084679) K (test code = 4.0 mmol/L 3.5-5.0 7081863461) CL (test code = 108 mmol/L 98-108 8612727544) CO2 TOTAL (test code 25 mmol/L 23-31 = 9369606037) AGAP (test code = 9 2-16 5309215642) BUN (test code = 9 mg/dL 7-23 1311506873) GLUCOSE (test code = 106 mg/dL 70-110 4543857808) CREATININE (test code 0.74 mg/dL 0.60-1.25 = 6124347480) TOTAL BILI (test code 0.7 mg/dL 0.1-1.1 = 7669727351) CALCIUM (test code = 9.4 mg/dL 8.6-10.6 6189536506) T PROTEIN (test code 6.9 g/dL 6.3-8.2 = 5667188981) ALBUMIN (test code = 4.4 g/dL 3.5-5.0 2415031115) ALK PHOS (test code = 90 U/L 34-122 6481433557) ALTv (test code = 18 U/L 5-50 1742-6) AST(SGOT) (test code 22 U/L 13-40 = 3700550906) eGFR (test code = 137.8 mL/min/1.73m2 9210416678) JAMAL (test code = JAMAL) Association of [...] or urine or abnormalities in imaging tests). [facility] 04:53:42 Test Item Value Reference Range Interpretation Comments LIPASE (test code = 3012059003) 106 U/L 0-220 Lab Interpretation (test code = Normal 36887-7) [facility]MINAL [id number] 06:31:17 Test Item Value Reference Range Interpretation Comments NT-proBNP (test code See_Comment [Autom ated = 3347379728) message] The system which generated this result transmitted reference range : <=125. The reference range was not used to interpret this result as normal/abnormal . JAMAL (test code = JAMAL) Biotin has been reported to cause a negative bias, interpret results relative to patient's use of biotin. Lab Interpretation Normal (test code = 25570-6) General acute hospital WITH [id number] 06:22:31 Test Item Value Reference Range Interpretation [...] RDW-SD (test code = 43.3 fL 38.5-49.0 54621-8) RDW-CV (test code = 13.1 % 11.5-14.0 788-0) PLT (test code = See_Comment H [Automated 777-3) message] The sy stem which generated this result transmitted reference range : 133 - 320 10*3/ ?L. The reference r genaro was not used to interpret this result as normal/abnormal . MPV (test code = 8.9 fL 9.3-12.9 L 31065-3) NRBC/100 WBC (test See_Comment [Automat ed code = 5656591481) message] The system which generated this result transmitted reference range : 0.0 - 10.0 /100 WBCs. The refer ence range was not u sed to interpret th is result as normal/abnormal . NRBC x10^3 (test code See_Comment [Auto mated = 5320412180) message] The s ystem which generated this result transmitted reference range : 10*3/?L. The reference range was not used to interpret this result as normal/abnormal . GRAN MAT (NEUT) % 40.3 % (test code = 770-8) IMM GRAN % (test code 2.30 % = 6837359628) LYMPH % (test code = 33.9 % 736-9) MONO % (test code = 9.1 % 5905-5) EOS % (test code = 13.1 % 713-8) BASO % (test code = 1.3 % 706-2) GRAN MAT x10^3(ANC) 5.45 10*3/uL 1.50-10.30 (test code = 0295362181) IMM GRAN x10^3 (test 0.31 10*3/uL 0.00-0.06 H code = 0638781534) LYMPH x10^3 (test code 4.60 10*3/uL 0.70-7.40 = 731-0) MONO x10^3 (test code 1.24 10*3/uL 0.00-0.50 H = 742-7) EOS x10^3 (test code = 1.78 10*3/uL 0.00-0.40 H 711-2) BASO x10^3 (test code 0.18 10*3/uL 0.00-0.10 H = 704-7) REACT LYMPHS (test Moderate code = 5523974841) Lab Interpretation Abnormal (test code = 57555-3) [facility] [id number] 06:20:41 Test Item Value Reference Interpretation Comments Range TROPONIN I (test 0.001 ng/mL See_Comment [Automated code = 7883069155) message] The system which generated this result [...] biotin. Lab Interpretation Normal (test code = 74342-9) [facility] MET[facility]OLIC PANEL (82802)2022-06-21 06:09:03 Test Item Value Reference Range Interpretation Comments NA (test code = 138 mmol/L 135-145 1066144800) K (test code = 4.4 mmol/L 3.5-5.0 2386893368) CL (test code = 104 mmol/L 98-108 8972451897) CO2 TOTAL (test code = 27 mmol/L 23-31 5557337869) AGAP (test code = 2-16 5058629322) BUN (test code = 10 mg/dL 7-23 1803829410) GLUCOSE (test code = 115 mg/dL 70-110 H 6940416006) CREATININE (test code = 0.71 mg/dL 0.60-1.25 4635856863) TOTAL BILI (test code = 0.8 mg/dL 0.1-1.3 4615197798) CALCIUM (test code = 9.6 mg/dL 8.6-10.6 7683047624) T PROTEIN (test code = 6.6 g/dL 6.3-8.2 0638109931) ALBUMIN (test code = 4.3 g/dL 3.5-5.0 5537619810) ALK PHOS (test code = 107 U/L 34-122 5952337447) ALTv (test code = 27 U/L 5-50 1742-6) AST(SGOT) (test code = 29 U/L 13-40 2479436841) eGFR (test code = mL/min/1.73m2 0357710715) JAMAL (test code = JAMAL) Association of [...] tests). Lab Interpretation Abnormal (test code = 06492-5) [facility] THRMPLAS [id number] 06:07:03 Test Item Value Reference Range Interpretation Comments APTT Patient (test See_Comment [Automat ed code = 3173-2) message] The system which generated this result transmitted reference range : 23 - 38 Seconds . The reference range was not used to interpr et this result as normal/abnormal . JAMAL (test code = JAMAL) The [facility] patient population mean normal value for aPTT is 30 seconds. Lab Interpretation Normal (test code = 29865-6) [facility] HospitalPROTHROMBIN TIME / [id number] 06:05:04 Test Item Value Reference Range Interpretation [...] tions. Lab Interpretation (test Normal code = 48594-6) [facility] MET[facility]OLIC PANEL (92752)2022-05-29 02:48:30 Test Item Value Reference Range Interpretation Comments NA (test code = 140 mmol/L 135-145 8547496603) K (test code = 4.4 mmol/L 3.5-5.0 1650726441) CL (test code = 103 mmol/L 98-108 9100599344) CO2 TOTAL (test code = 24 mmol/L 23-31 1929373190) AGAP (test code = 2-16 2200871548) BUN (test code = 13 mg/dL 7-23 2660403254) GLUCOSE (test code = 183 mg/dL 70-110 H 9297846254) CREATININE (test code = 0.74 mg/dL 0.60-1.25 5184934924) TOTAL BILI (test code = 0.5 mg/dL 0.1-1.3 8981107125) CALCIUM (test code = 10.4 mg/dL 8.6-10.6 5762325425) T PROTEIN (test code = 7.8 g/dL 6.3-8.2 3346807822) ALBUMIN (test code = 5.0 g/dL 3.5-5.0 3416522378) ALK PHOS (test code = 140 U/L 34-122 H 7865125296) ALTv (test code = 26 U/L 5-50 1742-6) AST(SGOT) (test code = 26 U/L 13-40 5560473667) eGFR (test code = mL/min/1.73m2 5298485404) JAMAL (test code = JAMAL) Association of [...] tests). Lab Interpretation Abnormal (test code = 93516-2) General acute hospital WITH [id number] 02:38:32 Test Item Value Reference Range Interpretation [...] (test code = 37.9 fL 38.5-49.0 L 22497-7) RDW-CV (test code = 11.9 % 11.5-14.0 788-0) PLT (test code = See_Comment H [Automated 777-3) message] The system which generated this result transmit rosanne reference range : 133 - 320 10*3/ ?L. The reference range was not u sed to interpret th is result as normal/abnormal . MPV (test code = 8.9 fL 9.3-12.9 L 17105-5) NRBC/100 WBC (test See_Comment [Automat ed code = 1438108140) message] The system which generated this result transmit rosanne reference range : 0.0 - 10.0 /100 WBCs. The reference range was not used to interpret this result as normal/abnormal . NRBC x10^3 (test code See_Comment [Auto mated = 8754741605) message] The system which generated this result transmit rosanne reference range : 10*3/?L. The reference range was not used to interpret this result as normal/abnormal . GRAN MAT (NEUT) % 84.1 % (test code = 770-8) IMM GRAN % (test code 1.50 % = 5326849832) LYMPH % (test code = 13.1 % 736-9) MONO % (test code = 0.8 % 5905-5) EOS % (test code = 0.0 % 713-8) BASO % (test code = 0.5 % 706-2) GRAN MAT x10^3(ANC) 12.92 10*3/uL 1.50-10.30 H (test code = 4491935971) IMM GRAN x10^3 (test 0.23 10*3/uL 0.00-0.06 H code = 3137577404) LYMPH x10^3 (test code 2.02 10*3/uL 0.70-7.40 = 731-0) MONO x10^3 (test code 0.13 10*3/uL 0.00-0.50 = 742-7) EOS x10^3 (test code = 0.00-0.40 711-2) BASO x10^3 (test code 0.07 10*3/uL 0.00-0.10 = 704-7) Lab Interpretation Abnormal (test code = 64017-0) [facility]ANTI-NUCLEAR ANTIBODY (FERNANDA)2022-04-09 12:45:36 Test Item Value Reference Range Interpretation Comments ANTI-NUCLEAR ANTIBODY (FERNANDA) (BEAKER) Negative Negative (test code = 418) Test performed by IFA method.Test performed by IFA method.[id number] 18:24:41 Test Item Value Reference Range Interpretation Comments FERRITIN (BEAKER) (test code = 130.99 ng/mL 5.00-275.00 361) Information Technology Account Manager ID - BSHEPATITIS C [id number] 17:56:40 Test Item Value Reference Range Interpretation Comments HEPATITIS C ANTIBODY (BEAKER) Nonreactive Nonreactive (test code = 367) Information Technology Account Manager ID - BSHEPATITIS B SURFACE [id number] 17:52:06 Test Item Value Reference Range Interpretation Comments HEPATITIS B SURFACE ANTIBODY < mIU/mL <8.0 (BEAKER) (test code = 647) Information Technology Account Manager ID - BSHEPATITIS A ANTIBODY, [id number] 17:52:01 Test Item Value Reference Range Interpretation Comments HEPATITIS A IGG ANTIBODY (BEAKER) Reactive Nonreactive A (test code = 2797) Information Technology Account Manager ID - BSHEPATITIS B SURFACE [id number] 17:49:35 Test Item Value Reference Range Interpretation Comments HEPATITIS B SURFACE ANTIGEN (2) Nonreactive Nonreactive (BEAKER) (test code = 2585) Specimen is considered negative for HBsAg.HEPATITIS B CORE ANTIBODY, TOTAL 2022-04-08 17:49:35 Test Item Value Reference Range Interpretation Comments HEPATITIS B CORE TOTAL ANTIBODY Nonreactive Nonreactive (BEAKER) (test code = 497) Information Technology Account Manager ID - BSIMMUNOGLOBULIN G (IGG)2022-04-08 17:34:53 Test Item Value Reference Range Interpretation Comments IMMUNOGLOBULIN G (IGG) 1176 mg/dL See_Comment [Aut omated message] (BEAKER) (test code = The sy stem which 427) generated this result transmit rosanne reference range : 540-1,822. The reference range was not used to interpret this result as normal/abnormal . Information Technology Account Manager ID - BSIRON, TIBC, % SAT. (WITHOUT FERRITIN)2022-04-08 17:34:53 Test Item Value Reference Range Interpretation Comments IRON (BEAKER) (test code = 547) 122.0 ug/dL 40.0-160.0 TOTAL IRON BINDING CAPACITY 306 ug/dL 250-450 (BEAKER) (test code = 769) IRON % SATURATION (2) (BEAKER) 40 % 20-55 (test code = 2590) Information Technology Account Manager ID - [id number] 17:30:09 Test Item Value Reference Range Interpretation Comments ALPHA-1 ANTITRYPSIN (BEAKER) 140.80 mg/dL 90.00-200.00 (test code = 502) Information Technology Account Manager ID - BSCOMPREHENSIVE METABOLIC [id number] 17:18:27 Test Item Value Reference Range Interpretation [...] not appl icable for dialysis patien ts Information Technology Account Manager ID - BSBILIRUBIN, [id number] 17:18:27 Test Item Value Reference Range Interpretation Comments BILIRUBIN DIRECT (BEAKER) (test 0.3 mg/dL 0.1-0.5 code = 706) Information Technology Account Manager ID - BSCBC W/PLT COUNT & AUTO [id number] 16:58:21 Test Item Value Reference Range Interpretation [...]
[2023-06-03] MEDS ORDERED: NA CHLORIDE 0.9% 1,000 ML ONE (17:41)
[2023-06-03] MEDS ORDERED: KETOROLAC 30 MG/ML INJ ONE (17:41)
[2023-06-03 18:03] LABS: Albumin 4.1 g/dL (3.4-5.0); Bilirubin Total 0.5 mg/dL (0.2-1.0); Potassium 3.7 mEq/L (3.5-5.1); Protein, Total 7.6 g/dL (6.4-8.2); Troponin High Sensitivity 6.8 pg/mL (<58.9)
[2023-06-03 18:29] LABS: Absolute Lymphocytes (CBC) 6.3 K/uL (0.7-4.9); Hematocrit 48.4 % (39.6-49.0); Lymphocytes % 39.7 % (15.3-44.8); MCV 90.5 fL (80-100); MPV 7.4 fL (7.6-11.3); Platelets 470 thou/uL (152-406); RBC Red Blood Cell Count 5.35 M/uL (4.33-5.43)
--- NOTE | 2023-06-03 18:29 | RAD REPORT ---
EXAM DESCRIPTION: RAD - Chest Pa And Lat (2 Views) - 06/03/2023 6:11 pm CLINICAL HISTORY: CHEST PAIN COMPARISON: Chest Pa And Lat (2 Views) dated 03/27/2023; Chest Single View dated 03/21/2023; Chest Singl e View dated 03/05/2023; Chest Single View dated 02/21/2023 TECHNIQUE: PA and lateral views of the chest were obtained. FINDINGS: The lungs are clear. Heart size is normal and central vasculature is within normal limits. No pleural effusion or pneumothorax seen. No acute bony finding noted. IMPRESSION: No acute cardiopulmonary process.
--- NOTE | 2023-06-03 18:51 | EDPHYS ---
Physician Documentation [facility] Name: Manjinder Arrieta Age: 17 yrs Sex: Male : 2005 Arrival Date: 06/03/2023 Time: 16:48 Bed 5 Private MD: ED Physician Tristan Cole HPI: 06/03 21:29 This 17 yrs old Male presents to ER via Wheelchair with complaints of Chest Pain, rt Shortness Of Breath, Dizziness. 21:29 Patient presents to the ED with a left-sided chest pain starting about 2 hours prior to rt arrival. Reports mild shortness of breath. Denies other acute complaints, symptoms are moderate in severity, no other aggravating elevating factors.. Historical: - Allergies: 17:00 adhesive tape; ph 17:00 Adhesives; ph 17:00 Albuterol; ph 17:00 cefixime; ph 17:00 Clindamycin; ph 17:00 Latex; ph 17:00 montelukast; ph 17:00 [place] (Prunus Persica); ph 17:00 PENICILLINS; ph 17:00 Prednisone; ph 17:00 Suprax; ph 17:00 Sulfa (Sulfonamide Antibiotics); ph 17:00 Vancomycin; ph - PMHx: 17:00 ADD/ADHD; Anemia; Anxiety; Asthma; Autism; bacterial meningitis; Bipolar disorder; ph Depression; epillepsy; hepatosplegomegaly; Tachycardia; Migraines; - PSHx: 17:00 Adenoid excision; ear tubes; eye surgery; fundiplication; Splenectomy; tear duct ph surgeries; Tonsillectomy; - Immunization history:: Adult Immunizations unknown. - Social history:: Smoking status: unknown. - Family history:: not pertinent. ROS: 21:29 Constitutional: Negative for fever, chills, and weight loss, Abdomen/GI: Negative for rt abdominal pain, nausea, vomiting, diarrhea, and constipation, MS/Extremity: Negative for injury and deformity, Skin: Negative for injury, rash, and discoloration, Neuro: Negative for headache, weakness, numbness, tingling, and seizure, Psych: Negative for depression, anxiety, suicide ideation, homicidal ideation, and hallucinations, 21:29 Cardiovascular: Positive for chest pain, Negative for edema, 21:29 Respiratory: Positive for shortness of breath, Negative for cough, 21:29 Neuro: Positive for dizziness, Negative for loss of consciousness, Exam: 21:29 ECG was reviewed by the Attending Physician. rt 21:29 Constitutional: This is a well developed, well nourished patient who is awake, alert, rt and in no acute distress. Head/Face: Normocephalic, atraumatic. Chest/axilla: Normal chest wall appearance and motion. Nontender with no deformity. No lesions are appreciated. Cardiovascular: Regular rate and rhythm with a normal S1 and S2. No gallops, murmurs, or rubs. Normal PMI, no JVD. No pulse deficits. Respiratory: Lungs have equal breath sounds bilaterally, clear to auscultation and percussion. No rales, rhonchi or wheezes noted. No increased work of breathing, no retractions or nasal flaring. Abdomen/GI: Soft, non-tender, with normal bowel sounds. No distension or tympany. No guarding or rebound. No evidence of tenderness throughout. Skin: Warm, dry with normal turgor. Normal color with no rashes, no lesions, and no evidence of cellulitis. MS/ Extremity: Pulses equal, no cyanosis. Neurovascular intact. Full, normal range of motion. Neuro: Awake and alert, GCS 15, oriented to person, place, time, and situation. Cranial nerves II-XII grossly intact. Motor strength 5/5 in all extremities. Sensory grossly intact. Cerebellar exam normal. Normal gait. Psych: Awake, alert, with orientation to person, place and time. Behavior, mood, and affect are within normal limits. Vital Signs: 16:58 BP 133 / 85; Pulse 80; Resp 18; Temp 98.5; Pulse Ox 99% on R/A; Weight 83.91 kg; Height ph 5 ft. 8 in. ; 17:05 BP 129 / 85; Pulse 83; Resp 18; Pulse Ox 98% on R/A; db 18:15 BP 118 / 79; Pulse 71; Resp 15; Pulse Ox 99% on R/A; Pain 8/10; nj1 18:15 Pain 8/10; nj1 18:45 BP 120 / 73; Pulse 80; Resp 18; Pulse Ox 98% on R/A; db 16:58 Body Mass Index 28.13 (83.91 kg, 172.72 cm) - Percentile 90.5 % ph 18:15 Pain Scale: Adult nj1 18:15 Pain Scale: Adult nj1 MDM: 17:16 Patient medically screened. rt 21:29 Differential diagnosis: abnormal EKG, acute myocardial infarction, pneumonia, rt pneumothorax. HEART Score: History: Slightly Suspicious (0), ECG: Normal (0), Age: < or = 45 years (0), Risk Factors: No Risk Factors Known (0), Troponin: < or = 1 x Normal Limit (0), Total Score = 0. Data reviewed: vital signs, nurses notes, lab test result(s), EKG, radiologic studies. I considered the following discharge prescriptions or medication management in the emergency department Medications were administered in the Emergency Department. See MAR. Independent interpretation of the following test(s) in the Emergency Department X-Ray: My interpretation is No pneumonia seen on interpretation of x-ray images. Test considered but Not performed: CT: PE RC negative, low suspicion for PE, CT angiogram not indicated. Care significantly affected by the following chronic conditions: Asthma. Counseling: I had a detailed discussion with the patient and/or guardian regarding the historical points, exam findings, and any diagnostic results supporting the discharge/admit diagnosis, lab results, radiology results, the need for outpatient follow up, to return to the emergency department if symptoms worsen or persist or if there are any questions or concerns that arise at home. Response to treatment: the patient's symptoms have markedly improved after treatment. 06/03 17:23 Order name: CBC with Diff; Complete Time: 18:38 rt 06/03 17:23 Order name: CMP; Complete Time: 18:38 rt 06/03 17:23 Order name: Troponin High Sensitivity; Complete Time: 18:38 rt 06/03 17:23 Order name: Chest Pa And Lat (2 Views) XRAY; Complete Time: 18:38 rt 11 17:23 Order name: EKG; Complete Time: 17:24 rt 06/03 17:23 Order name: EKG - Nurse/Tech; Complete Time: 17:26 rt EC:29 Rate is 74 beats/min. Rhythm is regular, Normal Sinus Rhythm with No ectopy. QRS [employer] rt is Normal. RI interval is normal. QRS interval is normal. QT interval is normal. No Q waves. T waves are Normal. No ST changes noted. Interpreted by me. Administered Medications: 17:34 Drug: Ketorolac IVP 15 mg IVP once Route: IVP; Site: right antecubital; nj1 18:15 Follow up: Pain 8/10 Adult; Response: No adverse reaction; Pain is decreased nj1 17:34 Drug: NS 0.9% IV 1000 ml IV at 1 bolus Per protocol; 1000 mL bolus Route: IV; Rate: 1 nj1 bolus; Site: right antecubital; 19:03 Follow up: Response: No adverse reaction; IV Status: Completed infusion; IV Intake: db 1000ml Disposition Summary: 06/03/23 18:51 Discharge Ordered Notes: Location: Home rt Problem: new rt Symptoms: have improved rt Condition: Stable rt Diagnosis - Chest pain, unspecified rt Followup: rt - With: Private Physician - When: 2 - 3 days - Reason: Discharge Instructions: - Discharge Summary Sheet rt - Nonspecific Chest Pain, Adult rt Forms: - Medication Reconciliation Form rt - Thank You Letter rt - Antibiotic Education rt - Prescription Opioid Use rt - Patient Portal Instructions rt - Leadership Thank You Letter rt Signatures: Dispatcher [employer] Ernestina De Jesus, RN RN Tristan Cole MD MD rt Gladis Kent RN RN nj1 Camila Najera RN db
--- NOTE | 2023-06-03 18:51 | ER ---
Nurse's Notes [facility] Name: Manjinder Arrieta Age: 17 yrs Sex: Male : 2005 Arrival Date: 06/03/2023 Time: 16:48 Bed 5 Private MD: Diagnosis: Chest pain, unspecified Presentation: 06/03 16:58 Chief complaint: Patient states: L sided chest pain that started today, sharp stabbing, ph radiates to L shoulder also reports mild SOB and dizziness. Coronavirus screen: Vaccine status: Patient reports receiving the 2nd dose of the covid vaccine. Ebola Screen: No symptoms or risks identified at this time. Initial Sepsis Screen: Does the patient meet any 2 criteria? No. Patient's initial sepsis screen is negative. Does the patient have a suspected source of infection? No. Patient's initial sepsis screen is negative. Risk Assessment: Do you want to hurt yourself or someone else? Patient reports no desire to harm self or others. Onset of symptoms was June 03, 2023. 16:58 Method Of Arrival: Wheelchair ph 16:58 Acuity: YESSY 3 ph Triage Assessment: 18:00 General: Appears in no apparent distress. comfortable, Behavior is calm, cooperative. db Pain: Complains of pain in chest. Neuro: Level of Consciousness is awake, alert, obeys commands, Oriented to person, place, time, situation. Historical: - Allergies: 17:00 adhesive tape; ph 17:00 Adhesives; ph 17:00 Albuterol; ph 17:00 cefixime; ph 17:00 Clindamycin; ph 17:00 Latex; ph 17:00 montelukast; ph 17:00 [place] (Prunus Persica); ph 17:00 PENICILLINS; ph 17:00 Prednisone; ph 17:00 Suprax; ph 17:00 Sulfa (Sulfonamide Antibiotics); ph 17:00 Vancomycin; ph - PMHx: 17:00 ADD/ADHD; Anemia; Anxiety; Asthma; Autism; bacterial meningitis; Bipolar disorder; ph Depression; epillepsy; hepatosplegomegaly; Tachycardia; Migraines; - PSHx: 17:00 Adenoid excision; ear tubes; eye surgery; fundiplication; Splenectomy; tear duct ph surgeries; Tonsillectomy; - Immunization history:: Adult Immunizations unknown. - Social history:: Smoking status: unknown. - Family history:: not pertinent. Screenin:14 [facility] ED Fall Risk Assessment (Adult) Score/Fall Risk Level 0 - 2 = Low Risk nj1 Oriented to surroundings, Maintained a safe environment, Hourly rounding (assess needs \T\ fall precautionary measures) done. Abuse screen: Denies threats or abuse. Denies injuries from another. Nutritional screening: No deficits noted. Tuberculosis screening: No symptoms or risk factors identified. Assessment: 17:00 General: Appears in no apparent distress. comfortable, Behavior is calm, cooperative, nj1 appropriate for age. Pain: Complains of pain in chest Pain does not radiate. Pain currently is 10 out of 10 on a pain scale. Pain began 2 hours ago. 17:00 Neuro: Level of Consciousness is awake, alert, obeys commands, Oriented to person, nj1 place, time, situation, Appropriate for age. Cardiovascular: Patient's skin is warm and dry. Chest pain is located in left. Respiratory: Airway is patent Respiratory effort is even, unlabored. 18:15 Reassessment: Patient appears in no apparent distress at this time. Patient and/or nj1 family updated on plan of care and expected duration. Pain level reassessed. Patient is alert, oriented x 3, equal unlabored respirations, skin warm/dry/pink. Patient states feeling better. 18:45 Reassessment: Patient appears in no apparent distress at this time. Patient and/or db family updated on plan of care and expected duration. Pain level reassessed. Patient is alert, oriented x 3, equal unlabored respirations, skin warm/dry/pink. Vital Signs: 16:58 BP 133 / 85; Pulse 80; Resp 18; Temp 98.5; Pulse Ox 99% on R/A; Weight 83.91 kg; Height ph 5 ft. 8 in. ; 17:05 BP 129 / 85; Pulse 83; Resp 18; Pulse Ox 98% on R/A; db 18:15 BP 118 / 79; Pulse 71; Resp 15; Pulse Ox 99% on R/A; Pain 8/10; nj1 18:15 Pain 8/10; nj1 18:45 BP 120 / 73; Pulse 80; Resp 18; Pulse Ox 98% on R/A; db 16:58 Body Mass Index 28.13 (83.91 kg, 172.72 cm) - Percentile 90.5 % ph 18:15 Pain Scale: Adult nj1 18:15 Pain Scale: Adult nj1 ED Course: 16:52 Patient arrived in ED. im 16:53 Tristan Cole MD is Attending Physician. rt 16:59 Triage completed. ph 17:00 Arm band placed on Patient placed in an exam room. ph 17:01 Gladis Kent, PAYAM is Primary Nurse. nj1 17:14 Patient has correct armband on for positive identification. Bed in low position. Call nj1 light in reach. Side rails up X 1. Adult w/ patient. Provided Education on: call light, fall precautions. Client placed on continuous cardiac and pulse oximetry monitoring. NIBP monitoring applied. 17:15 Patient maintains SpO2 saturation greater than 95% on room air. nj1 17:36 Troponin High Sensitivity Sent. bc6 17:36 CMP Sent. bc6 17:36 CBC with Diff Sent. bc6 17:36 Inserted saline lock: 20 gauge in right antecubital area, using aseptic technique. bc6 Blood collected. 18:11 Chest Pa And Lat (2 Views) XRAY In Process Unspecified. EDMS 19:02 No provider procedures requiring assistance completed. IV discontinued, intact, db bleeding controlled, No redness/swelling at site. Administered Medications: 17:34 Drug: Ketorolac IVP 15 mg IVP once Route: IVP; Site: right antecubital; nj1 18:15 Follow up: Pain 8/10 Adult; Response: No adverse reaction; Pain is decreased nj1 17:34 Drug: NS 0.9% IV 1000 ml IV at 1 bolus Per protocol; 1000 mL bolus Route: IV; Rate: 1 nj1 bolus; Site: right antecubital; 19:03 Follow up: Response: No adverse reaction; IV Status: Completed infusion; IV Intake: db 1000ml Medication: 17:20 VIS not applicable for this client. db Intake: 19:03 IV: 1000ml; Total: 1000ml. db Outcome: 18:51 Discharge ordered by . rt 19:02 Discharged to home ambulatory, with family, db 19:02 Condition: stable 19:02 Discharge instructions given to patient, family, Instructed on discharge instructions, follow up and referral plans. 19:03 Patient left the ED. db Signatures: Dispatcher [employer] EDIA Ernestina Lopez RN RN ph Camila Najera RN RN db Tristan Cole MD MD rt Salma Pepe 6 Gladis Kent RN RN nj1 Hyacinth Schaeffer Corrections: (The following items were deleted from the chart) 18:36 18:15 BP 118 / 79; Pulse 71bpm; Resp 15bpm; Pulse Ox 99% RA; nj1 nj1
[2023-06-03 19:41] VITALS: TEMP 98.5
[2023-06-03 19:46] VITALS: BP 120/73; O2SAT 98
--- NOTE | 2023-06-04 14:24 | EKG ---
Test Date: 2023-06-03 Test Time: 17:08:17 Real Estate Rep: YASMEEN MEASUREMENT RESULTS: Intervals: Rate: 74 [place]: 180 QRSD: 82 QT: 354 QTc: 392 [place]: P: 33 [place]: 180 QRS: 58 T: 55 INTERPRETIVE STATEMENTS: Normal sinus rhythm Normal ECG Compared to ECG 03/21/2023 19:10:12 No significant changes Electronically Signed On 06-04-23 14:22:12 COACH OPERATOR by Dutch Chao
== END 2023-06-03 19:03 | disposition home or self-care (01) ==
LOC: ER 16:48
DX: R07.89 Other chest pain (principal); J45.909 Unspecified asthma, uncomplicated; F41.9 Anxiety disorder, unspecified; Z88.2 Allergy status to sulfonamides; Z88.3 Allergy status to other anti-infective agents; Z88.8 Allergy status to other drugs, medicaments and biological substances; Z91.018 Allergy to other foods; Z91.040 Latex allergy status; Z91.048 Other nonmedicinal substance allergy status
CPT/HCPCS: 96361; 93005; 85025; 36415; 84484; 80053; 71046; 96374; 99285; J7030

== ENCOUNTER → 2023-07-14 | Emergency (ER) | payer OTHER ==
[~2023-07-14] MED LIST: AZITHROMYCIN 250 MG TAB ONE; HYDROCODONE/CHLORPHEN 5 ML/OSYR ONE; dexAMETHasone 4 MG/ML VIAL ONE
[2023-07-14 23:15] LABS: Absolute Lymphocytes (CBC) 6.7 K/uL (0.7-4.9); Hematocrit 46.4 % (39.6-49.0); Lymphocytes % 45.5 % (15.3-44.8); MCV 90.8 fL (80-100); MPV 7.1 fL (7.6-11.3); Platelets 542 thou/uL (152-406); RBC Red Blood Cell Count 5.11 M/uL (4.33-5.43)
[2023-07-14 23:24] LABS: Albumin 3.8 g/dL (3.4-5.0); Bilirubin Direct 0.1 mg/dL (0-0.2); Bilirubin Indirect, Calculated 0.2 mg/dL (0.2-0.8); Bilirubin Total 0.3 mg/dL (0.2-1.0); Magnesium 2.3 mg/dL (1.6-2.4); Potassium 3.7 mEq/L (3.5-5.1); Protein, Total 7.5 g/dL (6.4-8.2)
--- NOTE | 2023-07-15 01:08 | ER ---
Nurse's Notes [facility] Name: Manjinder Arrieta Age: 17 yrs Sex: Male : 2005 Arrival Date: 07/14/2023 Time: 21:35 Bed 2 Private MD: Diagnosis: Acute upper respiratory infection, unspecified;Pneumonia, unspecified organism Presentation: 07/14 21:43 Chief complaint: Patient states: Cough and shortness of breath X1 week. Pt was cm10 diagnosed with Pnuemonia yesterday and prescribed breathing treatments. Coronavirus screen: Vaccine status: Patient reports receiving the 2nd dose of the covid vaccine. Client denies travel out of the [place] in the last 14 days. Ebola Screen: Patient denies travel to an Ebola-affected area in the 21 days before illness onset. No symptoms or risks identified at this time. Initial Sepsis Screen: Does the patient meet any 2 criteria? No. Patient's initial sepsis screen is negative. Does the patient have a suspected source of infection? No. Patient's initial sepsis screen is negative. Risk Assessment: Do you want to hurt yourself or someone else? Patient reports no desire to harm self or others. Onset of symptoms was July 14, 2023. 21:43 Method Of Arrival: Ambulatory cm10 21:43 Acuity: YESSY 3 cm10 Triage Assessment: 22:24 General: Appears comfortable. Respiratory: Reports shortness of breath at rest Onset: rv The symptoms/episode began/occurred suddenly, the patient has mild shortness of breath. Historical: - Allergies: 21:45 adhesive tape; cm10 21:45 Adhesives; cm10 21:45 Albuterol; cm10 21:45 cefixime; cm10 21:45 Clindamycin; cm10 21:45 montelukast; cm10 21:45 [place] (Prunus Persica); cm10 21:45 PENICILLINS; cm10 21:45 Prednisone; cm10 21:45 Sulfa (Sulfonamide Antibiotics); cm10 21:45 Suprax; cm10 21:45 Vancomycin; cm10 - PMHx: 21:45 ADD/ADHD; Anemia; Anxiety; Asthma; Autism; bacterial meningitis; Bipolar disorder; cm10 Depression; epillepsy; hepatosplegomegaly; Migraines; Tachycardia; - PSHx: 21:45 Adenoid excision; ear tubes; eye surgery; fundiplication; Splenectomy; tear duct cm10 surgeries; Tonsillectomy; - Immunization history:: Adult Immunizations up to date. - Social history:: Smoking status: Patient denies any tobacco usage or history of. Screenin:23 [facility] ED Fall Risk Assessment (Adult) History of falling in the last 3 months, rv including since admission No falls in past 3 months (0 pts) Score/Fall Risk Level 0 - 2 = Low Risk Oriented to surroundings, Maintained a safe environment, Educated pt \T\ family on fall prevention, incl call for assistance when getting out of bed, Assessed \T\ reinforced patient's understanding of fall precautions. Abuse screen: Denies threats or abuse. Denies injuries from another. Nutritional screening: No deficits noted. Tuberculosis screening: No symptoms or risk factors identified. Assessment: 22:23 General: Appears comfortable, Behavior is calm, cooperative. Pain: Denies pain. Neuro: rv Level of Consciousness is awake, alert, obeys commands. Cardiovascular: Rhythm is regular. Respiratory: Airway is patent Respiratory effort is even, unlabored, Breath sounds are clear bilaterally. GI: No signs and/or symptoms were reported involving the gastrointestinal system. : No signs and/or symptoms were reported regarding the genitourinary system. 23:20 Reassessment: Patient and/or family updated on plan of care and expected duration. Pain ha1 level reassessed. Patient is alert, oriented x 3, equal unlabored respirations, skin warm/dry/pink. Vital Signs: 21:43 BP 128 / 88; Pulse 88; Resp 18; Temp 98.1(O); Pulse Ox 97% on R/A; Weight 87.09 kg; cm10 Height 5 ft. 8 in. ; Pain 04/27; 23:32 BP 116 / 72; Pulse 74; Resp 17 S; Pulse Ox 97% on R/A; ha1 07/15 01:03 BP 114 / 71; Pulse 82; Resp 18; Pulse Ox 96% ; rv 07/14 21:43 Body Mass Index 29.19 (87.09 kg, 172.72 cm) - Percentile 93.1 % cm10 07/14 21:43 Pain Scale: Adult cm10 ED Course: 07/14 21:39 Patient arrived in ED. gm2 21:41 Lucero Hernandez PA-C is PHCP. sb4 21:41 Jake Rosenberg MD is Attending Physician. sb4 21:45 Triage completed. cm10 21:46 Arm band placed on Patient placed in waiting room. cm10 22:23 Patient has correct armband on for positive identification. Client placed on continuous rv cardiac and pulse oximetry monitoring. NIBP monitoring applied. 22:50 Inserted saline lock: 20 gauge in left antecubital area, using aseptic technique. Blood rv collected. 07/15 00:01 CT Chest For PE Angio In Process Unspecified. EDMS 01:29 Jeevan Maldonado, RN is Primary Nurse. rv 01:30 No provider procedures requiring assistance completed. IV discontinued, intact, rv bleeding controlled, No redness/swelling at site. Pressure dressing applied. Administered Medications: 07/14 22:23 Drug: Tussionex Pennkinetic ER PO Suspension 5 ml PO once Route: PO; rv 07/15 01:29 Follow up: Response: No adverse reaction rv 07/14 23:04 Drug: Decadron - Dexamethasone IVP 10 mg IVP once Route: IVP; Site: left antecubital; rv 07/15 01:29 Follow up: Response: No adverse reaction rv 01:29 Drug: AZITHromycin PO 500 mg PO once Route: PO; rv 01:29 Follow up: Response: Medication administered at discharge. rv Medication: 07/14 22:23 VIS not applicable for this client. rv Outcome: 07/15 01:07 Discharge ordered by . sb4 01:30 Discharged to home ambulatory, with family, rv 01:30 Condition: good 01:30 Discharge instructions given to family, Instructed on discharge instructions, follow up and referral plans. medication usage, Demonstrated understanding of instructions, follow-up care, medications, Prescriptions given X 2, 01:30 Patient left the ED. rv Signatures: Dispatcher [employer] EDMS Jeevan Maldonado, RN RN rv Farheen Griffin, RN RN leah1 Lucero Hernandez PA-C PA-C sb4 Martinez, Clarissa RN RN cm10 Eugenie Wisdom 2
--- NOTE | 2023-07-15 01:08 | EDPHYS ---
Physician Documentation [facility] Name: Manjinder Arrieta Age: 17 yrs Sex: Male : 2005 Arrival Date: 07/14/2023 Time: 21:35 Bed 2 Private MD: ED Physician Jake Rosenberg HPI: 07/15 00:02 This 17 yrs old Male presents to ER via Ambulatory with complaints of Cough, Shortness sb4 Of Breath, Congestion. 00:06 Mom states that patient has had cough and congestion for few weeks now. He was sb4 initially on steroids and improved but got worse a few days ago. He was seen at [facility] yesterday, had a chest x-ray and swabs. He was diagnosed with viral pneumonia and prescribed doxycycline, cough medicine, and ipratropium. Mom states that he has not gotten any better and she is very concerned about his cough. 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 No fevers, chills, abdominal symptom. Historical: - Allergies: 07/14 21:45 adhesive tape; cm10 21:45 Adhesives; cm10 21:45 Albuterol; cm10 21:45 cefixime; cm10 21:45 Clindamycin; cm10 21:45 montelukast; cm10 21:45 [place] (Prunus Persica); cm10 21:45 PENICILLINS; cm10 21:45 Prednisone; cm10 21:45 Sulfa (Sulfonamide Antibiotics); cm10 21:45 Suprax; cm10 21:45 Vancomycin; cm10 - PMHx: 21:45 ADD/ADHD; Anemia; Anxiety; Asthma; Autism; bacterial meningitis; Bipolar disorder; cm10 Depression; epillepsy; hepatosplegomegaly; Migraines; Tachycardia; - PSHx: 21:45 Adenoid excision; ear tubes; eye surgery; fundiplication; Splenectomy; tear duct cm10 surgeries; Tonsillectomy; - Immunization history:: Adult Immunizations up to date. - Social history:: Smoking status: Patient denies any tobacco usage or history of. ROS: 07/15 00:06 Constitutional: Negative for fever, chills, and weight loss, sb4 ENT: Positive for sinus congestion, Respiratory: Positive for cough, dyspnea on exertion, shortness of breath, All other systems are negative, Exam: 00:06 Constitutional: This is a well developed, well nourished patient who is awake, alert, sb4 and in no acute distress. Head/Face: Normocephalic, atraumatic. Eyes: Extra-ocular motions intact. Periorbital areas with no swelling, redness, or edema. ENT: Mucous membranes moist. Cardiovascular: Regular rate and rhythm with a normal S1 and S2. Respiratory: Lungs have equal breath sounds bilaterally, clear to auscultation and percussion. No rales, rhonchi or wheezes noted. No increased work of breathing, no retractions or nasal flaring. Abdomen/GI: Soft, non-tender, no distension. Skin: Warm, dry with normal turgor. Normal color with no rashes, no lesions, and no evidence of cellulitis. MS/ Extremity: Pulses equal, no cyanosis. Neurovascular intact. Full, normal range of motion. Neuro: Awake and alert, GCS 15, oriented to person, place, time, and situation. Motor strength 5/5 in all extremities. Sensory grossly intact. Vital Signs: 07/14 21:43 BP 128 / 88; Pulse 88; Resp 18; Temp 98.1(O); Pulse Ox 97% on R/A; Weight 87.09 kg; cm10 Height 5 ft. 8 in. ; Pain /; 23:32 BP 116 / 72; Pulse 74; Resp 17 S; Pulse Ox 97% on R/A; ha1 07/15 01:03 BP 114 / 71; Pulse 82; Resp 18; Pulse Ox 96% ; rv 07/14 21:43 Body Mass Index 29.19 (87.09 kg, 172.72 cm) - Percentile 93.1 % cm10 07/14 21:43 Pain Scale: Adult cm10 MDM: 07/14 21:47 Patient medically screened. sb4 07/15 00:06 Differential Diagnosis: Bronchitis Upper Respiratory Infection Pneumonia Other PE. sb4 00:57 Data reviewed: vital signs, nurses notes, lab test result(s), radiologic studies, and sb4 as a result, I will discharge patient. Consideration of Admission/Observation Escalation of care including admission/observation considered. Historians other than the Patient: Parent: mother. Care significantly affected by the following chronic conditions: autism, asthma. Counseling: I had a detailed discussion with the patient and/or guardian regarding the historical points, exam findings, and any diagnostic results supporting the discharge/admit diagnosis, lab results, radiology results, to return to the emergency department if symptoms worsen or persist or if there are any questions or concerns that arise at home. 07/14 21:57 Order name: BMP; Complete Time: 23:32 sb4 07/14 21:57 Order name: Blood Culture Adult (2) sb4 07/14 21:57 Order name: CBC with Diff; Complete Time: 23:21 sb4 07/14 21:57 Order name: Hepatic Function; Complete Time: 23:32 sb4 07/14 21:57 Order name: Lipase; Complete Time: 23:32 sb4 07/14 21:57 Order name: Magnesium; Complete Time: 23:32 sb4 07/14 21:57 Order name: CT Chest For PE Angio sb4 07/14 21:57 Order name: EKG; Complete Time: 21:58 sb4 07/14 21:57 Order name: IV Saline Lock; Complete Time: 22:23 sb4 07/14 21:57 Order name: Labs collected and sent; Complete Time: 22:23 sb4 EC/27 22:48 Rate is 94 beats/min. Rhythm is regular, Normal Sinus Rhythm. LA interval is normal at sb4 190 msec. QRS interval is normal at 82 msec. QT interval is normal at 330 msec. No Q waves. T waves are Normal. No ST changes noted. Clinical impression: Normal ECG. Interpreted by me. Reviewed by me. Administered Medications: 22:23 Drug: Tussionex Pennkinetic ER PO Suspension 5 ml PO once Route: PO; rv 07/15 01:29 Follow up: Response: No adverse reaction rv 07/14 23:04 Drug: Decadron - Dexamethasone IVP 10 mg IVP once Route: IVP; Site: left antecubital; rv 07/15 01:29 Follow up: Response: No adverse reaction rv 01:29 Drug: AZITHromycin PO 500 mg PO once Route: PO; rv : Follow up: Response: Medication administered at discharge. rv Disposition Summary: 07/15/23 01:07 Discharge Ordered Notes: Location: Home sb4 Problem: an ongoing problem sb4 Symptoms: have improved sb4 Condition: Stable sb4 Diagnosis - Acute upper respiratory infection, unspecified sb4 - Pneumonia, unspecified organism sb4 Followup: sb4 - With: Emergency Department - When: As needed - Reason: Trouble breathing, Worsening of condition Discharge Instructions: - Discharge Summary Sheet sb4 - Community-Acquired Pneumonia, Adult sb4 - Upper Respiratory Infection, Adult, [id number]-[id number] sb4 Forms: - Medication Reconciliation Form sb4 - Thank You Letter sb4 - Antibiotic Education sb4 - Prescription Opioid Use sb4 - Patient Portal Instructions sb4 - Leadership Thank You Letter sb4 Prescriptions: - Zithromax 500 mg Oral tablet - take 1 tablet ORAL route once daily for 4 days; 4 tablet; Refills: 0, Product henrietta Selection Permitted - Dexamethasone 0.5 mg/5 mL Oral Elixir - take 10 milliliters ORAL route every 12 hours; 120 milliliter; Refills: 0, sb4 Product Selection Permitted Signatures: Dispatcher [employer] Jake Rodriguez MD MD cha Vicente, Ronaldo, Lucero Roca RN, PACassyC PACassyC sb4 Concepcion Ceron RN RN cm10
[2023-07-15 07:24] VITALS: TEMP 98.1
[2023-07-15 07:37] VITALS: BP 114/71; O2SAT 96
--- NOTE | 2023-07-15 13:19 | EKG ---
Test Date: 2023-07-14 Test Time: 22:33:09 Principal Administrative Clerk: SOHA MEASUREMENT RESULTS: Intervals: Rate: 94 MT: 190 QRSD: 82 QT: 330 QTc: 412 Shorter: P: 42 MT: 190 QRS: 55 T: 54 INTERPRETIVE STATEMENTS: Normal sinus rhythm Early repolarization Normal ECG Compared to ECG 06/03/2023 17:08:17 Early repolarization now present Electronically Signed On 07-15-23 13:18:14 LEGAL SUPPORT SPECIALIST by Dutch Chao
--- NOTE | 2023-07-15 14:35 | RAD REPORT ---
EXAM DESCRIPTION: CT - Chest For Pe Angio - 07/15/2023 6:43 am CLINICAL HISTORY: The patient is 17 years old and is Male; Chest pain;Cough TECHNIQUE: Axial computed tomographic angiography images of the chest with intravenous contrast. S agittal and coronal reformatted images were created and reviewed. This CT exam was performed using one or more of the following dose reduction techniques: automated exposure control, adjustment of t he mA and/or kV according to patient size, and/or use of iterative reconstruction technique. MIP re constructed images were created and reviewed. COMPARISON: No relevant prior studies available. FINDINGS: Pulmonary arteries: Unremarkable. No pulmonary embolism. Aorta: No acute findings. No thoracic aortic aneurysm. Lungs: Mild nonspecific groundglass changes in the lung bases. No mass. No consolidation. Pleural space: Unremarkable. No significant effusion. No pneumothorax. Heart: Unremarkable. No cardiomegaly. No significant pericardial effusion. No evidence of R V dysfunction. Bones/joints: No acute fracture. No dislocation. Soft tissues: Unremarkable. Lymph nodes: Unremarkable. No enlarged lymph nodes. IMPRESSION: 1. No evidence of pulmonary embolism. 2. Mild nonspecific groundglass changes in the lung bases. Electronically signed by: Sarbjit Edmonds MD 07/15/2023 01:01 AM [employer]ER[employer] Due to temporary technical issues with the PACS/Fluency reporting system, reports are being signed by the in house radiologists without review as a courtesy to insure prompt reporting. The interpreting radiologist is fully responsible for the content of the report.
== END ==
LOC: ER 21:35
DX: J18.9 Pneumonia, unspecified organism (principal); J06.9 Acute upper respiratory infection, unspecified; F31.9 Bipolar disorder, unspecified; Z88.0 Allergy status to penicillin; Z88.1 Allergy status to other antibiotic agents; Z88.2 Allergy status to sulfonamides; Z88.3 Allergy status to other anti-infective agents; Z88.8 Allergy status to other drugs, medicaments and biological substances; Z91.018 Allergy to other foods; Z91.048 Other nonmedicinal substance allergy status
CPT/HCPCS: 93005; 87040 ×2; 85025; 80048; 36415; 83735; 80076; 83690; 71275; 96374; 99284; Q9967; J1100

== ENCOUNTER 2023-11-02 21:04 | Emergency (ER) | payer OTHER ==
[2023-11-02] MEDS ORDERED: KETOROLAC 30 MG/ML INJ ONE (21:17)
[2023-11-02] MEDS ORDERED: NA CHLORIDE 0.9% 1,000 ML ONE (21:17)
[2023-11-02] MEDS ORDERED: ONDANSETRON 4 MG/2 ML VIAL ONE (21:17)
[2023-11-02] MEDS ORDERED: FAMOTIDINE 20 MG/2 ML VIAL IV ONE (21:17)
[2023-11-02 21:46] LABS: Absolute Basophils 0.1 K/uL (0-0.5); Absolute Eosinophils 0.3 K/uL (0-0.5); Absolute Lymphocytes (CBC) 6.2 K/uL (0.7-4.9); Absolute Monocytes 1.1 K/uL (0.1-1.3); Absolute Neutrophil 5.9 K/uL (1.8-8.0); Basophils % 0.8 % (0-1.3); Eosinophils % 2.3 % (0-4.4); Hematocrit 44.4 % (39.6-49.0); Hemoglobin 15.6 g/dL (13.6-17.9); Lymphocytes % 45.4 % (15.3-44.8); MCH 32.3 pg (27.0-35.0); MCHC 35.2 g/dL (32.0-36.0); MCV 91.8 fL (80-100); MPV 7.3 fL (7.6-11.3); Monocytes % 8.1 % (3.3-12.3); Neutrophils % 43.4 % (41.7-73.7); Nucleated Red Blood Cells % 0.2 % (0-0); Platelets 484 thou/uL (152-406); RBC Red Blood Cell Count 4.84 M/uL (4.33-5.43)
[2023-11-02 21:53] LABS: Specific Gravity 1.016 (1.005-1.030); Sqamous Epithelial <5 /HPF (None Seen); Urine Bacteria None Seen /HPF (<20); Urine Bilirubin NEGATIVE (Negative); Urine Blood Negative (Negative); Urine Clarity Extremely Turbid (Clear); Urine Color Colorless (Yellow); Urine Culture Reflex Order NOT NEEDED; Urine Glucose NEGATIVE (Negative); Urine Ketones NEGATIVE (Negative); Urine Microscopic Reflex YN ORDER UMIC; Urine Nitrite NEGATIVE (Negative); Urine Protein NEGATIVE (Negative); Urine RBC <5 /HPF (None Seen); Urine Urobilinogen Normal (Normal); Urine WBC <5 /HPF (<5)
[2023-11-02 21:54] LABS: Albumin 3.8 g/dL (3.4-5.0); Albumin/Globulin Ratio 1.2 (1.1-1.8); Anion Gap 6.5 mEq/L (5.0-15.0); Bilirubin Total 0.5 mg/dL (0.2-1.0); Globulin 3.2 g/dL (2.3-3.5)
[2023-11-02 22:14] LABS: Potassium 3.5 mEq/L (3.5-5.1)
[2023-11-02] MEDS ORDERED: DIPHENOX/ATROP SULF 1 TAB PO ONE (23:42)
--- NOTE | 2023-11-02 23:49 | ER ---
Nurse's Notes [facility] Name: Manjinder Arrieta Age: 17 yrs Sex: Male : 2005 Arrival Date: 11/02/2023 Time: 21:04 Bed 14 Private MD: Diagnosis: Acute gastroenteritis, acute diarrhea Presentation: 11/01 21:18 Chief complaint: Patient states: diarrhea since Wednesday and RLQ pain that started as6 today. Coronavirus screen: At this time, the client does not indicate any symptoms associated with coronavirus-19. Ebola Screen: No symptoms or risks identified at this time. Initial Sepsis Screen: Does the patient meet any 2 criteria? No. Patient's initial sepsis screen is negative. Does the patient have a suspected source of infection? No. Patient's initial sepsis screen is negative. Risk Assessment: Do you want to hurt yourself or someone else? Patient reports no desire to harm self or others. Onset of symptoms was November 02, 2023. 21:18 Acuity: YESSY 3 as6 21:18 Method Of Arrival: Ambulatory as6 Triage Assessment: 21:29 General: Appears in no apparent distress. Behavior is calm, cooperative. Pain: rv Complains of pain in abdomen. Historical: - Allergies: 21:17 adhesive tape; as6 21:17 Adhesives; as6 21:17 Albuterol; as6 21:17 cefixime; as6 21:17 Clindamycin; as6 21:17 montelukast; as6 21:17 [place] (Prunus Persica); as6 21:17 PENICILLINS; as6 21:17 Prednisone; as6 21:17 Sulfa (Sulfonamide Antibiotics); as6 21:17 Suprax; as6 21:17 Vancomycin; as6 - PMHx: 21:17 ADD/ADHD; Anemia; Anxiety; Asthma; Autism; bacterial meningitis; Bipolar disorder; as6 Depression; epillepsy; hepatosplegomegaly; Migraines; Tachycardia; - PSHx: 21:17 Adenoid excision; ear tubes; eye surgery; fundiplication; Splenectomy; tear duct as6 surgeries; Tonsillectomy; - Immunization history:: Adult Immunizations up to date. - Infectious Disease History:: Denies. - Social history:: Smoking status: Patient denies any tobacco usage or history of. - Family history:: not pertinent. Screenin:29 [facility] ED Fall Risk Assessment (Adult) History of falling in the last 3 months, rv including since admission No falls in past 3 months (0 pts) Score/Fall Risk Level 0 - 2 = Low Risk Oriented to surroundings, Maintained a safe environment, Educated pt \T\ family on fall prevention, incl call for assistance when getting out of bed, Assessed \T\ reinforced patient's understanding of fall precautions. Abuse screen: Denies threats or abuse. Denies injuries from another. Nutritional screening: No deficits noted. Tuberculosis screening: No symptoms or risk factors identified. Assessment: 21:29 Respiratory: Airway is patent Respiratory effort is even, unlabored. GI: Bowel sounds rv present X 4 quads. Abd is soft and non tender X 4 quads. Vital Signs: 21:16 BP 132 / 87; Pulse 74; Resp 18 S; Temp 98.4(O); Pulse Ox 97% on R/A; Weight 83.91 kg as6 (R); Height 5 ft. 9 in. (R); Pain 10/10; 21:16 Body Mass Index 27.32 (83.91 kg, 175.26 cm) - Percentile 86.4 % as6 21:16 Pain Scale: Adult as6 Docena Coma Score: 23:41 Eye Response: spontaneous(4). Motor Response: obeys commands(6). Verbal Response: sp4 oriented(5). Total: 15. ED Course: 21:06 Patient arrived in ED. jj6 21:06 Tyler Padilla MD is Attending Physician. sp4 21:12 Jeevan Maldonado RN is Primary Nurse. rv 21:16 Arm band placed on. as6 21:18 Triage completed. as6 21:28 CBC with Diff Sent. rv 21:28 CMP Sent. rv 21:28 Lipase Sent. rv 21:28 Urinalysis w/ reflexes Sent. rv 21:29 Initial lab(s) drawn, by me, sent to lab. Urine collected: clean catch specimen, clear, rv sent to lab. Inserted saline lock: 20 gauge in right antecubital area, using aseptic technique. Blood collected. 21:30 Patient has correct armband on for positive identification. Client placed on continuous rv cardiac and pulse oximetry monitoring. NIBP monitoring applied. 22:54 CT Abd/Pelvis - IV Contrast Only In Process Unspecified. EDMS 23:56 No provider procedures requiring assistance completed. IV discontinued, intact, rv bleeding controlled, No redness/swelling at site. Pressure dressing applied. Administered Medications: 21:28 Drug: NS 0.9% IV 1000 ml IV at 1 bolus Per protocol; 1000 mL bolus Route: IV; Rate: 1 rv bolus; Site: right antecubital; 23:47 Follow up: IV Status: Completed infusion; IV Intake: 1000ml rv 21:28 Drug: Famotidine IVP 20 mg IVP once; dilute with 10 mL 0.9% NaCl; give over 2 minutes rv Route: IVP; Site: right antecubital; 23:47 Follow up: Response: No adverse reaction; Marked relief of symptoms rv 21:28 Drug: TORadol - Ketorolac IVP 15 mg IVP once Route: IVP; Site: right antecubital; rv 23:47 Follow up: Response: No adverse reaction; Marked relief of symptoms rv 21:28 Drug: Ondansetron IVP 4 mg IVP once; over 2 minutes Route: IVP; Site: right antecubital;rv 23:47 Follow up: Response: No adverse reaction; Marked relief of symptoms rv 23:46 Drug: Diphenoxylate-Atropine PO 2 tabs PO once Route: PO; rv 23:57 Follow up: Response: Medication administered at discharge. rv Medication: 21:29 VIS not applicable for this client. rv Intake: 23:47 IV: 1000ml; Total: 1000ml. rv Outcome: 23:49 Discharge ordered by MD. balderas 23:57 Discharged to home ambulatory, with family, rv 23:57 Condition: good 23:57 Discharge instructions given to patient, family, Instructed on discharge instructions, follow up and referral plans. medication usage, Demonstrated understanding of instructions, follow-up care, medications, Prescriptions given X 3, 23:57 Patient left the ED. rv Signatures: Dispatcher [employer] EDMS Jeevan Maldonado, RN RN rv Jovana Morse Ashby, RN RN as6 Tyler Padilla MD MD sp4
--- NOTE | 2023-11-02 23:49 | EDPHYS ---
Physician Documentation [facility] Name: Manjinder Arrieta Age: 17 yrs Sex: Male : 2005 Arrival Date: 11/02/2023 Time: 21:04 Bed 14 Private MD: ED Physician Tyler Padilla HPI: 11/01 21:06 This 17 yrs old Male presents to ER via Unassigned with complaints of sp4 Abdominal Pain. 21:08 Allergies: adhesive tape; Adhesives; Albuterol; cefixime; Clindamycin; montelukast; sp4 [place] (Prunus Persica); PENICILLINS; Prednisone; Sulfa (Sulfonamide Antibiotics); Suprax; Vancomycin; PMHx: ADD/ADHD; Anxiety; Anemia; Asthma; Autism; bacterial meningitis; Bipolar disorder; Depression; epillepsy; hepatosplegomegaly; Migraines; Tachycardia; PSHx: Adenoid excision; ear tubes; eye surgery; fundiplication; Splenectomy; tear duct surgeries; Tonsillectomy;. 23:41 17 -year-old male with history of autism and ADHD presents with 1 day of right-sided sp4 abdominal pain associated with diarrhea.. Historical: - Allergies: 21:17 adhesive tape; as6 21:17 Adhesives; as6 21:17 Albuterol; as6 21:17 cefixime; as6 21:17 Clindamycin; as6 21:17 montelukast; as6 21:17 [place] (Prunus Persica); as6 21:17 PENICILLINS; as6 21:17 Prednisone; as6 21:17 Sulfa (Sulfonamide Antibiotics); as6 21:17 Suprax; as6 21:17 Vancomycin; as6 - PMHx: 21:17 ADD/ADHD; Anemia; Anxiety; Asthma; Autism; bacterial meningitis; Bipolar disorder; as6 Depression; epillepsy; hepatosplegomegaly; Migraines; Tachycardia; - PSHx: 21:17 Adenoid excision; ear tubes; eye surgery; fundiplication; Splenectomy; tear duct as6 surgeries; Tonsillectomy; - Immunization history:: Adult Immunizations up to date. - Infectious Disease History:: Denies. - Social history:: Smoking status: Patient denies any tobacco usage or history of. - Family history:: not pertinent. ROS: 23:41 Constitutional: Negative for fever, chills, and weight loss, positive abdominal pain, sp4 positive diarrhea 23:41 All other systems are negative, Exam: 23:41 Constitutional: This is a well developed, well nourished patient who is awake, alert, sp4 and in no acute distress. Head/Face: Normocephalic, atraumatic. Eyes: Pupils equal round and reactive to light, extra-ocular motions intact. Lids and lashes normal. Conjunctiva and sclera are not injected. Cornea within normal limits. Periorbital areas with no swelling, redness, or edema. ENT: Nares patent. No nasal discharge, no septal abnormalities noted. Tympanic membranes are normal and external auditory canals are clear. Oropharynx with no redness, swelling, or masses, exudates, or evidence of obstruction, uvula midline. Mucous membranes moist. Neck: Trachea midline, no thyromegaly or masses palpated, and no cervical lymphadenopathy. Supple, full range of motion without nuchal rigidity, or vertebral point tenderness. Chest/axilla: Normal chest wall appearance and motion. Nontender with no deformity. No lesions are appreciated. Cardiovascular: Regular rate and rhythm with a normal S1 and S2. No gallops, murmurs, or rubs. Normal PMI, no JVD. No pulse deficits. Respiratory: Lungs have equal breath sounds bilaterally, clear to auscultation and percussion. No rales, rhonchi or wheezes noted. No increased work of breathing, no retractions or nasal flaring. Abdomen/GI: Soft, with normal bowel sounds. No distension or tympany. No guarding or rebound. No evidence of tenderness throughout. Back: No spinal tenderness. No costovertebral tenderness. Skin: Warm, dry with normal turgor. Normal color with no rashes, no lesions, and no evidence of cellulitis. MS/ Extremity: Pulses equal, no cyanosis. Neurovascular intact. Full, normal range of motion. Neuro: Awake and alert, GCS 15, oriented to person, place, time, and situation. Cranial nerves II-XII grossly intact. Motor strength 5/5 in all extremities. Sensory grossly intact. Psych: Awake, alert, with orientation to person, place and time. Behavior, mood, and affect are within normal limits Vital Signs: 21:16 BP 132 / 87; Pulse 74; Resp 18 S; Temp 98.4(O); Pulse Ox 97% on R/A; Weight 83.91 kg as6 (R); Height 5 ft. 9 in. (R); Pain 10/10; 21:16 Body Mass Index 27.32 (83.91 kg, 175.26 cm) - Percentile 86.4 % as6 21:16 Pain Scale: Adult as6 Jacey Coma Score: 23:41 Eye Response: spontaneous(4). Motor Response: obeys commands(6). Verbal Response: sp4 oriented(5). Total: 15. MDM: 21:14 Patient medically screened. sp4 23:36 ED course: EXAMINATION: CT of the abdomen and pelvis was performed following sp4 intravenous administration of contrast. Oral contrast was not administered. Multiplanar reformatted images were provided. This exam was performed according to our departmental dose optimization program which includes use of automated exposure control, adjustment of the mA and/or kV according to patient size and/or use of iterative reconstruction technique. FINDINGS: Chest: Evaluation through the lung bases reveals no focal opacity, pleural effusion or pneumothorax. Heart size is within normal limits. No pericardial effusion. Abdomen and pelvis: The liver, gallbladder, pancreas, spleen, bilateral kidneys and bilateral adrenal glands are within normal limits. Appearance of prior gastric procedure after level of the gastroesophageal junction versus hernia, unchanged in comparison to the previous examination. The vessels are patent and normal in caliber. No abdominopelvic lymph nodes are noted to be pathologically enlarged by CT measurement criteria. The bowel is within normal limits without abnormal bowel wall thickness or bowel dilation. Possible mobile cecum terminating at the level of the infrahepatic margin. The appendix courses along the infrahepatic border, normal in appearance. No free air. No free abdominopelvic fluid collections. The osseous structures are within normal limits. IMPRESSION: 1. No specific acute intra-abdominal findings are noted to suggest etiology of the patient's abdominal pain. 2. Possible mobile cecum terminating at the level of the infrahepatic margin. The appendix courses along the infrahepatic border, normal in appearance. Electronically signed by: Sandie Lazaro MD 11/02/2023 11:28 PM. 23:41 Differential Diagnosis altered mental status, sepsis, flu, Acute appendicitis. Data sp4 reviewed: vital signs, nurses notes, old medical records, lab test result(s), radiologic studies, CT scan. Consideration of Admission/Observation Escalation of care including admission/observation considered. ED course: CT is negative for acute emergent abdominal problem. Patient stable for discharge home with recommendation for clear liquid diet for 24 hours. Liquid Imodium as needed for diarrhea. Also as needed Reglan as needed for nausea. . 23:47 ED course: . sp4 11/01 21:14 Order name: CBC with Diff; Complete Time: 22:53 sp4 11/01 21:14 Order name: CMP; Complete Time: :53 sp4 11/01 21:14 Order name: Lipase; Complete Time: :53 sp4 11/01 21:14 Order name: Urinalysis w/ reflexes; Complete Time: :53 sp4 11/01 21:14 Order name: CT Abd/Pelvis - IV Contrast Only sp4 11/01 21:14 Order name: IV Saline Lock; Complete Time: 21:28 sp4 11/01 21:14 Order name: Labs collected and sent; Complete Time: 21:28 sp4 Administered Medications: 21:28 Drug: NS 0.9% IV 1000 ml IV at 1 bolus Per protocol; 1000 mL bolus Route: IV; Rate: 1 rv bolus; Site: right antecubital; 23:47 Follow up: IV Status: Completed infusion; IV Intake: 1000ml rv 21:28 Drug: Famotidine IVP 20 mg IVP once; dilute with 10 mL 0.9% NaCl; give over 2 minutes rv Route: IVP; Site: right antecubital; 23:47 Follow up: Response: No adverse reaction; Marked relief of symptoms rv 21:28 Drug: TORadol - Ketorolac IVP 15 mg IVP once Route: IVP; Site: right antecubital; rv 23:47 Follow up: Response: No adverse reaction; Marked relief of symptoms rv 21:28 Drug: Ondansetron IVP 4 mg IVP once; over 2 minutes Route: IVP; Site: right antecubital;rv 23:47 Follow up: Response: No adverse reaction; Marked relief of symptoms rv 23:46 Drug: Diphenoxylate-Atropine PO 2 tabs PO once Route: PO; rv 23:57 Follow up: Response: Medication administered at discharge. rv Disposition Summary: 11/02/23 23:49 Discharge Ordered Notes: Location: Home sp4 Problem: new sp4 Symptoms: have improved sp4 Condition: Stable sp4 Diagnosis - Acute gastroenteritis, acute diarrhea sp4 Followup: sp4 - With: Private Physician - When: 7 - 10 days - Reason: Recheck today's complaints Discharge Instructions: - Discharge Summary Sheet sp4 - Clear Liquid Diet, Adult, [id number] sp4 Forms: - Patient Portal Instructions sp4 Prescriptions: - Lomotil 2.5-0.025 mg Oral Tablet - take 1 tablet ORAL route every 6 hours As needed; 20 tablet; Refills: 0, sp4 Product Selection Permitted - dicyclomine 20 mg Oral tablet - take 2 tablets ORAL route every 8 hours May crush and give with apple sauce or sp4 juice, PRN abdominal pain; 30 tablet; Refills: 0, Product Selection Permitted - ondansetron 8 mg Oral Tablet,disintegrating - take 1 tablet ORAL route every 8 hours PRN nausea , sublingual tabs; 30 tablet; sp4 Refills: 0, Product Selection Permitted Signatures: Dispatcher [employer] EDJeevan Smiley, RN RN Bernabe Zepeda RN RN as6 Tyler Padilla MD MD sp4 Corrections: (The following items were deleted from the chart) 21:14 21:14 CBC+H.LAB.BRZ ordered. EDMS EDMS 21:14 21:14 COMPREHENSIVE METABOLIC PANEL+C.LAB.BRZ ordered. EDMS EDMS 21:14 21:14 LIPASE+C.LAB.BRZ ordered. EDMS EDMS 21:14 21:14 Urinalysis+U.LAB.BRZ ordered. EDMS EDMS
[2023-11-03 13:30] VITALS: BP 132/87; TEMP 98.4; O2SAT 97
--- NOTE | 2023-11-04 00:07 | RAD REPORT ---
EXAM DESCRIPTION: CT - Abdomen Pelvis W Contrast - 11/03/2023 6:43 am CLINICAL HISTORY: 17 year-old male with right lower quadrant abdominal pain. COMPARISON: 05/21/2022 TECHNIQUE: CT of the abdomen and pelvis was performed following intravenous administration of contra st. Oral contrast was not administered. Multiplanar reformatted images were provided. This exam was p erformed according to our departmental dose optimization program which includes use of automated expo sure control, adjustment of the mA and/or kV according to patient size and/or use of iterative recons truction technique. FINDINGS: Chest: Evaluation through the lung bases reveals no focal opacity, pleural effusion or pne umothorax. Heart size is within normal limits. No pericardial effusion. Abdomen and pelvis: The liver, gallbladder, pancreas, spleen, bilateral kidneys and bilateral adrenal glands are within normal limits. Appearance of prior gastric procedure after level of the gastroesop hageal junction versus hernia, unchanged in comparison to the previous examination. The vessels are patent and normal in caliber. No abdominopelvic lymph nodes are noted to be pathologically enlarged by CT measurement criteria. The bowel is within normal limits without abnormal bowel wall thickness or bowel dilation. Possible m obile cecum terminating at the level of the infrahepatic margin. The appendix courses along the infra hepatic border, normal in appearance. No free air. No free abdominopelvic fluid collections. The osseous structures are within normal limits. IMPRESSION: 1. No specific acute intra-abdominal findings are noted to suggest etiology of the pat ient's abdominal pain. 2. Possible mobile cecum terminating at the level of the infrahepatic margin. The appendix courses along the infrahepatic border, normal in appearance. Electronically signed by: Sandie Lazaro MD 11/02/2023 11:28 PM CDT Due to temporary technical issues with the PACS/Fluency reporting system, reports are being signed by the in house radiologists without review as a courtesy to insure prompt reporting. The interpreting radiologist is fully responsible for the content of the report.
== END 2023-11-02 23:57 | disposition home or self-care (01) ==
LOC: ER 21:04
DX: K52.9 Noninfective gastroenteritis and colitis, unspecified (principal); Z88.0 Allergy status to penicillin; Z88.2 Allergy status to sulfonamides; Z88.3 Allergy status to other anti-infective agents; Z88.8 Allergy status to other drugs, medicaments and biological substances; Z91.018 Allergy to other foods; Z91.048 Other nonmedicinal substance allergy status
CPT/HCPCS: 85025; 81001; 36415; 83690; 80053; 74177; Q9967; J2405; J7030

== ENCOUNTER 2024-03-03 14:43 | Emergency (ER) | payer OTHER ==
[2024-03-03 16:08] LABS: Specific Gravity 1.019 (1.005-1.030); Urine Bilirubin NEGATIVE (Negative); Urine Blood Negative (Negative); Urine Clarity Clear (Clear); Urine Color Light-Yellow (Yellow); Urine Glucose NEGATIVE (Negative); Urine Ketones NEGATIVE (Negative); Urine Microscopic Reflex YN NO UMIC; Urine Nitrite NEGATIVE (Negative); Urine Protein NEGATIVE (Negative); Urine Urobilinogen Normal (Normal)
[2024-03-03 17:12] LABS: Absolute Basophils 0.1 K/uL (0-0.5); Absolute Eosinophils 0.3 K/uL (0-0.5); Absolute Lymphocytes (CBC) 4.5 K/uL (0.7-4.9); Absolute Monocytes 0.9 K/uL (0.1-1.3); Absolute Neutrophil 7.4 K/uL (1.8-8.0); Basophils % 0.8 % (0-1.3); Hematocrit 49.5 % (39.6-49.0); Hemoglobin 17.4 g/dL (13.6-17.9); Lymphocytes % 33.8 % (15.3-44.8); MCH 32.5 pg (27.0-35.0); MCHC 35.2 g/dL (32.0-36.0); MCV 92.2 fL (80-100); MPV 7.2 fL (7.6-11.3); Monocytes % 7.1 % (3.3-12.3); Neutrophils % 56.3 % (41.7-73.7); Nucleated Red Blood Cells % 0.2 % (0-0); Platelets 513 thou/uL (152-406); RBC Red Blood Cell Count 5.36 M/uL (4.33-5.43); Red Cell Distribution Width 14.2 % (12.1-15.2)
[2024-03-03] MEDS ORDERED: ONDANSETRON 4 MG/2 ML VIAL ONE (17:24)
[2024-03-03] MEDS ORDERED: FAMOTIDINE 20 MG/2 ML VIAL IV ONE (17:25)
[2024-03-03] MEDS ORDERED: NA CHLORIDE 0.9% 1,000 ML ONE (17:25)
[2024-03-03] MEDS ORDERED: MORPHINE 4 MG/ML SYR ONE (17:25)
[2024-03-03 17:27] LABS: Potassium 3.3 mEq/L (3.5-5.1)
[2024-03-03 17:28] LABS: Albumin 4.4 g/dL (3.4-5.0); Albumin/Globulin Ratio 1.2 (1.1-1.8); Anion Gap 5.3 mEq/L (5.0-15.0); Bilirubin Total 0.8 mg/dL (0.2-1.0); Globulin 3.6 g/dL (2.3-3.5)
--- NOTE | 2024-03-03 18:48 | RAD REPORT ---
EXAM DESCRIPTION: CT - Abdomen Pelvis W Contrast - 03/03/2024 5:56 pm CLINICAL HISTORY: ABD PAIN COMPARISON: Abdomen Pelvis W Contrast dated 11/02/2023; Abdomen Pelvis W Contrast dated 05/21/2022 ; Abdomen Pelvis W Contrast dated 02/25/2022; Abdomen Pelvis W Contrast dated 10/13/2021 TECHNIQUE: Thin cut axial CT imaging of the abdomen and pelvis was performed following intravenous a dministration of iodinated contrast. Multiplanar reformats were generated and reviewed. All CT scans are performed using dose optimization technique as appropriate and may include automated exposure control or mA/KV adjustment according to patient size. FINDINGS: No suspicious findings in the lung bases. The liver, spleen, adrenal glands, and pancreas show no suspicious findings. Gallbladder and biliary tree are also without suspicious finding. Symmetric renal function is seen with no hydronephrosis or suspicious renal mass. No dilated bowel loops or bowel wall thickening. Appendix is unremarkable No free air, free fluid or inflammatory stranding. No hernia, mass or bulky lymphadenopathy. The urinary bladder is without sign ificant finding. No suspicious bony findings. IMPRESSION: No acute intra-abdominal process.
[2024-03-03] MEDS ORDERED: HYDROMORPHONE HCL 1 MG/ML INJ ONE (19:41)
--- NOTE | 2024-03-03 20:07 | RAD REPORT ---
EXAM DESCRIPTION: US - Abdomen Exam Limited - 03/03/2024 7:16 pm CLINICAL HISTORY: ABD PAIN COMPARISON: Abdomen Pelvis W Contrast dated 03/03/2024 TECHNIQUE: Sonographic grayscale and color flow images of the right upper abdominal quadrant were o btained. FINDINGS: The gallbladder demonstrates no gallstones. Sonographic Cheung's sign is negative. No antelmo cholecystic fluid or gallbladder wall thickening. The common bile duct is normal measuring 4 mm. The liver demonstrates no findings of intrahepatic biliary dilatation. IMPRESSION: Unremarkable right upper quadrant ultrasound examination.
--- NOTE | 2024-03-03 20:32 | RAD REPORT ---
EXAM DESCRIPTION: Lillianat Single View03/03/2024 7:55 pm CLINICAL HISTORY: upper abdomen pain COMPARISON: Chest Single View dated 12/18/2023; Chest Pa And Lat (2 Views) dated 07/19/2023; Chest Pa An d Lat (2 Views) dated 06/03/2023; Chest Pa And Lat (2 Views) dated 03/27/2023 TECHNIQUE: Portable AP view of the chest. FINDINGS: Bilateral central interstitial prominence and bibasilar mild fluffy opacities. No pneumot horax or effusion. The cardiomediastinal contours are unremarkable. Implantable rhythm monitoring de vice in place. IMPRESSION: Findings suggesting mild central venous congestion or edema.
--- NOTE | 2024-03-03 20:41 | EDPHYS ---
Physician Documentation [facility] Name: Manjinder Arrieta Age: 18 yrs Sex: Male : 2005 Arrival Date: 03/03/2024 Time: 14:43 Bed 14 Private MD: ED Physician Rayo Goodwin HPI: 03/03 15:25 This 18 yrs old Male presents to ER via Wheelchair with complaints of Abdominal Pain. cp 15:25 The patient presents with abdominal pain in the right upper quadrant. cp 15:25 Onset: The symptoms/episode began/occurred 5 day(s) ago. The symptoms do not radiate. cp Associated signs and symptoms: Pertinent positives: nausea and vomiting, diarrhea, Pertinent negatives: fever, shortness of breath, testicular pain, vomiting blood. The symptoms are described as waxing/waning. Modifying factors: the symptoms are aggravated by food. Historical: - Allergies: 15:15 adhesive tape; tl4 15:15 Adhesives; tl4 15:15 Albuterol; tl4 15:15 cefixime; tl4 15:15 Clindamycin; tl4 15:15 montelukast; tl4 15:15 [place] (Prunus Persica); tl4 15:15 PENICILLINS; tl4 15:15 Prednisone; tl4 15:15 Sulfa (Sulfonamide Antibiotics); tl4 15:15 Suprax; tl4 15:15 Vancomycin; tl4 - Home Meds: 15:18 Abilify Maintena 400 mg intramuscular suspension,extended release syringe every month tl4 [Active]; Breztri Aerosphere 160-9-4.8 mcg/actuation inhalation HFA Aerosol Inhaler 2 inhalations 2 times per day [Active]; azithromycin 200 mg/5 mL Oral Suspension for Reconstitution 12.5 mL daily [Active]; cetirizine 5 mg oral tablet 1 tab daily [Active]; diazepam 2 mg Oral tablet 2 times per day [Active]; EpiPen 0.3 mg/0.3 mL injection Auto-Injector as needed [Active]; fluticasone propionate 50 mcg/actuation intranasal spray, suspension 2 sprays daily [Active]; ipratropium bromide 0.02 % inhalation solution 2.5 mL every 8 hours [Active]; levalbuterol HCl 1.25 mg/3 mL inhalation Solution for Nebulization 3 times per day [Active]; levalbuterol tartrate 45 mcg/actuation inhalation HFA Aerosol Inhaler 2 inhalations every 6 hours [Active]; levetiracetam 100 mg/mL oral solution 10 mL 2 times per day [Active]; methocarbamol 750 mg Oral tablet 1 tab 4 times per day [Active]; metoprolol succinate 50 mg oral Tablet, Extended Release 24 hr 1 tab daily [Active]; Nayzilam 5 mg/spray (0.1 mL) intranasal spray, non-aerosol 1 spray one spray in one nostril, may repeat in 10 minutes [Active]; Nucala 100 mg/mL subcutaneous Syringe 100 mg every 4 weeks [Active]; nystatin 100,000 unit/gram Topical cream 1 application daily [Active]; omeprazole 20 mg Oral capsule,delayed release (e.c.) 1 caps 2 times per day [Active]; ondansetron 8 mg oral Tablet,disintegrating 1 tab every 8 hours [Active]; promethazine 25 mg Oral tablet every 4 hours [Active]; Qulipta 60 mg oral tablet 1 tab daily [Active]; Risperdal 0.5 mg Oral tablet 1 tab 2 times per day [Active]; triamcinolone acetonide 0.1 % Topical ointment 1 application [Active]; Ubrelvy 100 mg oral tablet [Active]; - PMHx: 15:15 ADD/ADHD; Anemia; Anxiety; Asthma; Autism; bacterial meningitis; Bipolar disorder; tl4 Depression; epillepsy; hepatosplegomegaly; Migraines; Tachycardia; - PSHx: 15:15 Adenoid excision; ear tubes; eye surgery; fundiplication; loop recorder (le); tl4 Splenectomy; tear duct surgeries; Tonsillectomy; - Immunization history:: Adult Immunizations unknown. - Infectious Disease History:: CDIFF, bacterial meningitis. - Social history:: Smoking status: Patient denies any tobacco usage or history of. ROS: 15:25 Abdomen/GI: Positive for abdominal pain, nausea and vomiting, diarrhea, cp 15:25 Constitutional: Negative for body aches, fever, cp 15:25 Cardiovascular: Negative for chest pain, 15:25 Eyes: Negative for injury, pain, redness, and discharge, cp 15:25 ENT: Negative for drainage from ear(s), ear pain, sore throat, difficulty swallowing, difficulty handling secretions, 15:25 Respiratory: Negative for cough, shortness of breath, wheezing, 15:25 Neuro: Negative for altered mental status, dizziness, headache, syncope, weakness, 15:25 All other systems are negative, Exam: 15:30 Constitutional: The patient appears in no acute distress, alert, awake, non-toxic, well cp developed, well nourished, uncomfortable, 15:30 Head/Face: Normocephalic, atraumatic. cp 15:30 Eyes: Periorbital structures: appear normal, Conjunctiva: normal, no exudate, no injection, Sclera: no appreciated abnormality, Lids and lashes: appear normal, bilaterally, 15:30 ENT: External ear(s): are unremarkable, Nose: is normal, Mouth: Lips: moist, Oral mucosa: moist, Posterior pharynx: Airway: no evidence of obstruction, patent, 15:30 Chest/axilla: Inspection: normal, 15:30 Cardiovascular: Rate: tachycardic, Rhythm: regular, 15:30 Respiratory: the patient does not display signs of respiratory distress, Respirations: normal, no use of accessory muscles, no retractions, labored breathing, is not present, Breath sounds: are clear throughout, no decreased breath sounds, no stridor, no wheezing, 15:30 Abdomen/GI: Inspection: abdomen appears normal, Bowel sounds: active, all quadrants, Palpation: soft, in all quadrants, moderate abdominal tenderness, in the right upper quadrant, rebound tenderness, is not appreciated, involuntary guarding, is not appreciated, 15:30 Back: CVA tenderness, is absent, Vital Signs: 15:10 BP 132 / 88; Pulse 101; Resp 18; Temp 99(O); Pulse Ox 97% on R/A; Weight 95.25 kg; tl4 Height 5 ft. 9 in. ; Pain 10/10; 18:54 BP 120 / 85; Pulse 91; Resp 18; Pulse Ox 98% on R/A; rs5 20:36 BP 109 / 73; Pulse 88; Resp 17; Pulse Ox 99% on R/A; pc2 15:10 Body Mass Index 31.01 (95.25 kg, 175.26 cm) tl4 15:10 Pain Scale: Adult tl4 MDM: 15:18 Patient medically screened. cp 20:40 Data reviewed: vital signs, nurses notes, lab test result(s), radiologic studies, CT cp scan, plain films, and as a result, I will discharge patient. 20:40 Response to treatment: the patient's symptoms have markedly improved after treatment, cp and as a result, I will discharge patient. Special discussion: Based on the patient's Hx, exam, and Dx evaluation, there is no indication for emergent surgery or inpatient Tx. It is understood by the patient/guardian that if the Sx's persist or worsen they need to return immediately for re-evaluation. 03/03 15:20 Order name: CBC with Diff; Complete Time: 17:39 cp 03/03 15:20 Order name: CMP; Complete Time: 17:39 cp 03/03 15:20 Order name: Lipase; Complete Time: 17:39 cp 03/03 15:39 Order name: Urinalysis w/ reflexes; Complete Time: 17:39 nj1 03/03 15:20 Order name: CT Abd/Pelvis - IV Contrast Only; Complete Time: 18:52 cp 03/03 18:53 Order name: US Abdomen Limited: gallbladder; Complete Time: 20:19 cp 03/03 18:54 Order name: XRAY Chest (1 view); Complete Time: 20:39 cp 03/03 15:20 Order name: IV Saline Lock; Complete Time: 17:08 cp 03/03 15:20 Order name: Labs collected and sent; Complete Time: 17:08 cp 03/03 18:53 Order name: NPO; Complete Time: 18:53 cp 03/03 20:19 Order name: PO challenge; Complete Time: 20:28 cp Administered Medications: 17:30 Drug: NS 0.9% IV 1000 ml IV at 1 bolus Per protocol; 1000 mL bolus Route: IV; Rate: 1 rs5 bolus; Site: left antecubital; 17:30 Drug: Famotidine IVP 20 mg IVP once; dilute with 10 mL 0.9% NaCl; give over 2 minutes rs5 Route: IVP; Site: left antecubital; 19:10 Follow up: Response: No adverse reaction pc2 17:30 Drug: Ondansetron IVP 4 mg IVP once; over 2 minutes Route: IVP; Site: left antecubital; rs5 19:10 Follow up: Response: No adverse reaction pc2 17:30 Drug: morphine IVP or IV 4 mg IVP once over 4 mins Route: IVP; Infused Over: 4 mins; rs5 Site: left antecubital; 19:10 Follow up: Response: No adverse reaction; RASS: Alert and Calm (0) pc2 19:44 Drug: HYDROmorphone IVP 1 mg IVP once Route: IVP; Site: left antecubital; pc2 20:28 Follow up: Response: No adverse reaction; Marked relief of symptoms; RASS: Alert and pc2 Calm (0) 21:04 Drug: Potassium PO Effervescent Tablet 50 mEq PO once; dissolve in 4 ounces of water or pc2 juice Route: PO; 21:06 Follow up: Response: Medication administered at discharge. pc2 Disposition: 21:12 Co-signature as Attending Physician, Rayo Goodwin MD I reviewed the patient's care rn provided by the Advanced Practice Provider and agree with the diagnosis and treatment plan. Disposition Summary: 03/03/24 20:40 Discharge Ordered Notes: Location: Home cp Problem: new cp Symptoms: have improved cp Condition: Stable cp Diagnosis - Abdominal pain, unspecified cp Followup: cp - With: Private Physician - When: 2 - 3 days - Reason: Recheck today's complaints Discharge Instructions: - Discharge Summary Sheet cp - Abdominal Pain, Adult cp Forms: - Medication Reconciliation Form cp - Antibiotic Education cp - Prescription Opioid Use cp - Patient Portal Instructions cp - Leadership Thank You Letter cp Prescriptions: - Zofran 4 mg Oral Tablet - take 1 tablet ORAL route every 12 hours As needed; 20 tablet; Refills: 0, cp Product Selection Permitted - dicyclomine 20 mg Oral tablet - take 1 tablet ORAL route 4 times per day; 30 tablet; Refills: 0, Product cp Selection Permitted Signatures: Dispatcher [employer] EDRayo Leonardo MD MD rn Page, Corey, PA PA cp Donald Saunders RN RN rs5 Loco Sanchez RN RN tl4 Liliam Roberto, RN RN pc2 Corrections: (The following items were deleted from the chart) 03/04 20:56 03/03 15:25 Abdomen/GI: Positive for abdominal pain, cp cp
--- NOTE | 2024-03-03 20:41 | ER ---
Nurse's Notes [facility] Name: Manjinder Arrieta Age: 18 yrs Sex: Male : 2005 Arrival Date: 03/03/2024 Time: 14:43 Bed 14 Private MD: Diagnosis: Abdominal pain, unspecified Presentation: 03/03 15:10 Chief complaint: Patient states: Pt c/o diffuse abdominal pain that is worse in the tl4 right upper quadrant and gets worse after eating x 5 days. Nausea, vomiting, diarrhea x 3 days. Mother reports urine is more concentrated than usual. Coronavirus screen: diarrhea, nausea, vomiting. Ebola Screen: No symptoms or risks identified at this time. Initial Sepsis Screen: Does the patient meet any 2 criteria? No. Patient's initial sepsis screen is negative. Does the patient have a suspected source of infection? No. Patient's initial sepsis screen is negative. Risk Assessment: Do you want to hurt yourself or someone else? Patient reports no desire to harm self or others. Onset of symptoms was February 27, 2024. 15:10 Method Of Arrival: Wheelchair tl4 15:10 Acuity: YESSY 3 tl4 Triage Assessment: 15:16 General: Appears uncomfortable, Behavior is calm, cooperative. Pain: Complains of pain tl4 in abdomen. EENT: No signs and/or symptoms were reported regarding the EENT system. Neuro: Level of Consciousness is awake, alert, obeys commands, Oriented to person, place, time, situation. Cardiovascular: Capillary refill < 3 seconds Patient's skin is warm and dry. Respiratory: Airway is patent Respiratory effort is even, unlabored, Respiratory pattern is regular, symmetrical. GI: Reports lower abdominal pain, upper abdominal pain, diarrhea, nausea, vomiting. : Parent/caregiver report the patient having concentrated urine. Derm: No signs and/or symptoms reported regarding the dermatologic system. Musculoskeletal: No signs and/or symptoms reported regarding the musculoskeletal system. Historical: - Allergies: 15:15 adhesive tape; tl4 15:15 Adhesives; tl4 15:15 Albuterol; tl4 15:15 cefixime; tl4 15:15 Clindamycin; tl4 15:15 montelukast; tl4 15:15 [place] (Prunus Persica); tl4 15:15 PENICILLINS; tl4 15:15 Prednisone; tl4 15:15 Sulfa (Sulfonamide Antibiotics); tl4 15:15 Suprax; tl4 15:15 Vancomycin; tl4 - Home Meds: 15:18 Abilify Maintena 400 mg intramuscular suspension,extended release syringe every month tl4 [Active]; Breztri Aerosphere 160-9-4.8 mcg/actuation inhalation HFA Aerosol Inhaler 2 inhalations 2 times per day [Active]; azithromycin 200 mg/5 mL Oral Suspension for Reconstitution 12.5 mL daily [Active]; cetirizine 5 mg oral tablet 1 tab daily [Active]; diazepam 2 mg Oral tablet 2 times per day [Active]; EpiPen 0.3 mg/0.3 mL injection Auto-Injector as needed [Active]; fluticasone propionate 50 mcg/actuation intranasal spray, suspension 2 sprays daily [Active]; ipratropium bromide 0.02 % inhalation solution 2.5 mL every 8 hours [Active]; levalbuterol HCl 1.25 mg/3 mL inhalation Solution for Nebulization 3 times per day [Active]; levalbuterol tartrate 45 mcg/actuation inhalation HFA Aerosol Inhaler 2 inhalations every 6 hours [Active]; levetiracetam 100 mg/mL oral solution 10 mL 2 times per day [Active]; methocarbamol 750 mg Oral tablet 1 tab 4 times per day [Active]; metoprolol succinate 50 mg oral Tablet, Extended Release 24 hr 1 tab daily [Active]; Nayzilam 5 mg/spray (0.1 mL) intranasal spray, non-aerosol 1 spray one spray in one nostril, may repeat in 10 minutes [Active]; Nucala 100 mg/mL subcutaneous Syringe 100 mg every 4 weeks [Active]; nystatin 100,000 unit/gram Topical cream 1 application daily [Active]; omeprazole 20 mg Oral capsule,delayed release (e.c.) 1 caps 2 times per day [Active]; ondansetron 8 mg oral Tablet,disintegrating 1 tab every 8 hours [Active]; promethazine 25 mg Oral tablet every 4 hours [Active]; Qulipta 60 mg oral tablet 1 tab daily [Active]; Risperdal 0.5 mg Oral tablet 1 tab 2 times per day [Active]; triamcinolone acetonide 0.1 % Topical ointment 1 application [Active]; Ubrelvy 100 mg oral tablet [Active]; - PMHx: 15:15 ADD/ADHD; Anemia; Anxiety; Asthma; Autism; bacterial meningitis; Bipolar disorder; tl4 Depression; epillepsy; hepatosplegomegaly; Migraines; Tachycardia; - PSHx: 15:15 Adenoid excision; ear tubes; eye surgery; fundiplication; loop recorder (le); tl4 Splenectomy; tear duct surgeries; Tonsillectomy; - Immunization history:: Adult Immunizations unknown. - Infectious Disease History:: CDIFF, bacterial meningitis. - Social history:: Smoking status: Patient denies any tobacco usage or history of. Screenin:20 [facility] ED Fall Risk Assessment (Adult) History of falling in the last 3 months, rs5 including since admission No falls in past 3 months (0 pts) Confusion or Disorientation No (0 pts) Intoxicated or Sedated No (0 pts) Impaired Gait No (0 pts) Mobility Assist Device Used No (0 pt) Altered Elimination No (0 pt) Score/Fall Risk Level 0 - 2 = Low Risk Oriented to surroundings, Maintained a safe environment. Abuse screen: Denies threats or abuse. Nutritional screening: No deficits noted. Tuberculosis screening: No symptoms or risk factors identified. Assessment: 17:15 Reassessment: pt arrived in room. rs5 17:16 General: Appears in no apparent distress. uncomfortable, Behavior is calm, cooperative. rs5 Pain: Complains of pain in abdomen Pain does not radiate. Pain currently is 8 out of 10 on a pain scale. Quality of pain is described as aching, Is continuous. Neuro: Level of Consciousness is awake, alert, obeys commands, Oriented to person, place, time, situation. Cardiovascular: Patient's skin is warm and dry. Respiratory: Airway is patent Respiratory effort is even, unlabored, Respiratory pattern is regular, symmetrical. GI: Abdomen is round non-distended, Bruits are absent. Abd is soft and non tender X 4 quads. Reports diarrhea, nausea. : No signs and/or symptoms were reported regarding the genitourinary system. EENT: No signs and/or symptoms were reported regarding the EENT system. Derm: Skin is intact, Skin is pink, warm \T\ dry. Musculoskeletal: Range of motion: intact in all extremities. 18:10 Reassessment: Patient and/or family updated on plan of care and expected duration. Pain rs5 level reassessed. Patient is alert, oriented x 3, equal unlabored respirations, skin warm/dry/pink. Patient states feeling better. 18:54 Reassessment: No changes from previously documented assessment. rs5 19:20 Reassessment: Patient and/or family updated on plan of care and expected duration. Pain pc2 level reassessed. Patient states symptoms have not improved. Pain: Complains of pain in abdomen Pain currently is 10 out of 10 on a pain scale. Neuro: Level of Consciousness is awake, alert, obeys commands, Oriented to person, place, time, situation. Cardiovascular: Patient's skin is warm and dry. Respiratory: Airway is patent Respiratory effort is even, unlabored, Respiratory pattern is regular, symmetrical. GI: Abdomen is non-distended. : No signs and/or symptoms were reported regarding the genitourinary system. EENT: No signs and/or symptoms were reported regarding the EENT system. Derm: Skin is pink, warm \T\ dry. Musculoskeletal: Circulation, motion, and sensation intact. 20:40 Reassessment: No changes from previously documented assessment. Patient and/or family pc2 updated on plan of care and expected duration. Pain level reassessed. Patient states feeling better. Vital Signs: 15:10 BP 132 / 88; Pulse 101; Resp 18; Temp 99(O); Pulse Ox 97% on R/A; Weight 95.25 kg; tl4 Height 5 ft. 9 in. ; Pain 10/10; 18:54 BP 120 / 85; Pulse 91; Resp 18; Pulse Ox 98% on R/A; rs5 20:36 BP 109 / 73; Pulse 88; Resp 17; Pulse Ox 99% on R/A; pc2 15:10 Body Mass Index 31.01 (95.25 kg, 175.26 cm) tl4 15:10 Pain Scale: Adult tl4 ED Course: 14:46 Patient arrived in ED. mg5 14:47 Jake Hardy PA is PHCP. cp 14:47 Rayo Goodwin MD is Attending Physician. cp 15:14 Triage completed. tl4 15:17 Arm band placed on right wrist. tl4 15:20 Patient has correct armband on for positive identification. Placed in gown. Bed in low rs5 position. Call light in reach. Side rails up X2. 15:20 No provider procedures requiring assistance completed. rs5 15:39 Urinalysis w/ reflexes Sent. nj1 15:44 Urinalysis w/ reflexes Sent. tl4 15:44 Urine collected: clean catch specimen. tl4 16:50 Missed attempt(s): 20 gauge in right antecubital area. Bleeding controlled, band aid nj1 applied, catheter tip intact. 16:55 Inserted saline lock: 20 gauge in left antecubital area, using aseptic technique. Blood nj1 collected. Flushed with 10 mL NS Ultrasound guided. Catheter tip well visualized within vasculature during placement. 17:21 Donald Saunders, RN is Primary Nurse. rs5 17:58 CT Abd/Pelvis - IV Contrast Only In Process Unspecified. EDMS 19:06 Report received from PAYAM Bennett. pc2 19:06 US at bedside. pc2 19:17 US Abdomen Limited: gallbladder In Process Unspecified. EDMS 19:24 X-ray(s) taken. pc2 19:57 XRAY Chest (1 view) In Process Unspecified. EDMS 21:05 Provided Education on: medications and f/u. pc2 21:05 IV discontinued, intact, bleeding controlled, No redness/swelling at site. Pressure pc2 dressing applied. Administered Medications: 17:30 Drug: NS 0.9% IV 1000 ml IV at 1 bolus Per protocol; 1000 mL bolus Route: IV; Rate: 1 rs5 bolus; Site: left antecubital; 17:30 Drug: Famotidine IVP 20 mg IVP once; dilute with 10 mL 0.9% NaCl; give over 2 minutes rs5 Route: IVP; Site: left antecubital; 19:10 Follow up: Response: No adverse reaction pc2 17:30 Drug: Ondansetron IVP 4 mg IVP once; over 2 minutes Route: IVP; Site: left antecubital; rs5 19:10 Follow up: Response: No adverse reaction pc2 17:30 Drug: morphine IVP or IV 4 mg IVP once over 4 mins Route: IVP; Infused Over: 4 mins; rs5 Site: left antecubital; 19:10 Follow up: Response: No adverse reaction; RASS: Alert and Calm (0) pc2 19:44 Drug: HYDROmorphone IVP 1 mg IVP once Route: IVP; Site: left antecubital; pc2 20:28 Follow up: Response: No adverse reaction; Marked relief of symptoms; RASS: Alert and pc2 Calm (0) 21:04 Drug: Potassium PO Effervescent Tablet 50 mEq PO once; dissolve in 4 ounces of water or pc2 juice Route: PO; 21:06 Follow up: Response: Medication administered at discharge. pc2 Medication: 18:24 VIS not applicable for this client. rs5 Outcome: 20:40 Discharge ordered by . cp 21:05 Discharged to home ambulatory, with family, pc2 21:05 Condition: stable 21:05 Discharge instructions given to patient, family, Instructed on discharge instructions, follow up and referral plans. medication usage, Demonstrated understanding of instructions, follow-up care, medications, Prescriptions given X 2, 21:11 Patient left the ED. pc2 Signatures: Dispatcher [employer] EDMS Jake Hardy PA PA cp Sotelo, Ricky, RN RN rs5 Gladis Kent RN RN loli1 Amanda Valdez mg5 Loco Sanchez RN RN tl4 Liliam Roberto, RN RN pc2
[2024-03-03] MEDS ORDERED: POTASSIUM 25 MEQ EFFERV TAB ONE (20:44)
[2024-03-03 21:20] VITALS: TEMP 99
[2024-03-03 21:31] VITALS: BP 109/73; O2SAT 99
== END 2024-03-03 21:11 | disposition home or self-care (01) ==
LOC: ER 14:43
DX: R10.11 Right upper quadrant pain (principal); R11.2 Nausea with vomiting, unspecified; R19.7 Diarrhea, unspecified; F84.0 Autistic disorder
CPT/HCPCS: 85025; 36415; 81003; 83690; 80053; 74177; 71045; 76705; 96375; 96374; 99284; Q9967; J1170; J2405; J7030

== ENCOUNTER 2024-09-09 15:16 | Emergency (ER) | payer OTHER ==
--- NOTE | 2024-09-09 15:49 | ER ---
Nurse's Notes [facility] Name: Manjinder Arrieta Age: 18 yrs Sex: Male : 2005 Arrival Date: 09/09/2024 Time: 15:16 Bed 10 Private MD: Diagnosis: Cutaneous abscess of left upper limb Presentation: 09/09 15:23 Chief complaint: Patient states: he got an Abilify shot in his left upper arm ap3 09/07/24, but a different nurse than normal did it, and since then, the area has been sore and swollen. patient and patients mother report that this has never happened before. Coronavirus screen: At this time, the client does not indicate any symptoms associated with coronavirus-19. Ebola Screen: No symptoms or risks identified at this time. Initial Sepsis Screen: Does the patient meet any 2 criteria? HR > 90 bpm. Does the patient have a suspected source of infection? No. Patient's initial sepsis screen is negative. Risk Assessment: Do you want to hurt yourself or someone else? Patient reports no desire to harm self or others. Onset of symptoms was September 07, 2024. 15:23 Method Of Arrival: Ambulatory ap3 15:23 Acuity: YESSY 4 ap3 Triage Assessment: 15:26 General: Appears in no apparent distress. Behavior is calm, cooperative, appropriate ap3 for age. Pain: Complains of pain in left bicep Pain currently is 7 out of 10 on a pain scale. Neuro: Level of Consciousness is awake, alert, obeys commands, Oriented to person, place, time, situation. Cardiovascular: Patient's skin is warm and dry. Respiratory: Airway is patent Respiratory effort is even, unlabored, Respiratory pattern is regular, symmetrical. Historical: - Allergies: 15:24 adhesive tape; ap3 15:24 Adhesives; ap3 15:24 Albuterol; ap3 15:24 cefixime; ap3 15:24 Clindamycin; ap3 15:24 montelukast; ap3 15:24 [place] (Prunus Persica); ap3 15:24 PENICILLINS; ap3 15:24 Prednisone; ap3 15:24 Sulfa (Sulfonamide Antibiotics); ap3 15:24 Suprax; ap3 15:24 Vancomycin; ap3 - PMHx: 15:24 ADD/ADHD; Anemia; Anxiety; Asthma; Autism; bacterial meningitis; Bipolar disorder; ap3 Depression; epillepsy; hepatosplegomegaly; Migraines; Tachycardia; - PSHx: 15:24 Adenoid excision; ear tubes; eye surgery; fundiplication; loop recorder; Splenectomy; ap3 tear duct surgeries; Tonsillectomy; - Immunization history:: Client reports receiving the 2nd dose of the Covid vaccine, Flu vaccine is not up to date. - Infectious Disease History:: Denies. - Social history:: Smoking status: Patient denies any tobacco usage or history of. Screenin:26 [facility] ED Fall Risk Assessment (Adult) History of falling in the last 3 months, ap3 including since admission No falls in past 3 months (0 pts) Confusion or Disorientation No (0 pts) Intoxicated or Sedated No (0 pts) Impaired Gait No (0 pts) Mobility Assist Device Used No (0 pt) Altered Elimination No (0 pt) Score/Fall Risk Level 0 - 2 = Low Risk Oriented to surroundings, Maintained a safe environment, Educated pt \T\ family on fall prevention, incl call for assistance when getting out of bed, Assessed \T\ reinforced patient's understanding of fall precautions, Hourly rounding (assess needs \T\ fall precautionary measures) done, Used ambulatory aids as needed (educated on \T\ assisted with). Abuse screen: Denies threats or abuse. Nutritional screening: No deficits noted. Tuberculosis screening: No symptoms or risk factors identified. Vital Signs: 15:23 BP 130 / 84; Pulse 106; Resp 18; Temp 98.6; Pulse Ox 100% ; Weight 95.71 kg; Height 5 ap3 ft. 97 in. ; 15:23 Body Mass Index 6.02 (95.71 kg, 398.78 cm) ap3 ED Course: 15:19 Patient arrived in ED. im 15:21 Lily Riley FNP-C is PHCP. kb 15:21 Jake Rosenberg MD is Attending Physician. kb 15:24 Triage completed. ap3 15:26 Arm band placed on right wrist. ap3 15:27 Brien Dowell RN is Primary Nurse. jl7 16:01 No provider procedures requiring assistance completed. Patient did not have IV access jl7 during this emergency room visit. 16:02 Patient has correct armband on for positive identification. Provided Education on: jl7 discharge. Administered Medications: No medications were administered Medication: 16:02 VIS not applicable for this client. jl7 Outcome: 15:48 Discharge ordered by . kb 16:02 Discharged to home ambulatory, with family, jl7 16:02 Condition: stable 16:02 Discharge instructions given to patient, family, Instructed on discharge instructions, follow up and referral plans. medication usage, Demonstrated understanding of instructions, follow-up care, medications, Prescriptions given X 1, 16:02 Patient left the ED. jl7 Signatures: Lily Riley, SOLIDWORKS DRAFTER-C SOLIDWORKS DRAFTER-CkBrien Mccormack, RN RN jl7 Shelby De Paz RN RN ap3 Hyacinth Schaeffer
--- NOTE | 2024-09-09 15:49 | EDPHYS ---
Physician Documentation [facility] Name: Manjinder Arrieta Age: 18 yrs Sex: Male : 2005 Arrival Date: 09/09/2024 Time: 15:16 Bed 10 Private MD: ED Physician Jake Rosenberg HPI: 09/09 15:56 This 18 yrs old Male presents to ER via Ambulatory with complaints of Arm Pain, Arm kb Problem - swelling. 15:56 Pt is a 18 year old male who presents for redness, swelling and warmth to left upper kb arm that started after getting his abilify shot. Mother states it is getting more firm and spreading each day. States pt has been getting abilify injections for over a year and has never had anything like this happen. . Historical: - Allergies: 15:24 adhesive tape; ap3 15:24 Adhesives; ap3 15:24 Albuterol; ap3 15:24 cefixime; ap3 15:24 Clindamycin; ap3 15:24 montelukast; ap3 15:24 [place] (Prunus Persica); ap3 15:24 PENICILLINS; ap3 15:24 Prednisone; ap3 15:24 Sulfa (Sulfonamide Antibiotics); ap3 15:24 Suprax; ap3 15:24 Vancomycin; ap3 - PMHx: 15:24 ADD/ADHD; Anemia; Anxiety; Asthma; Autism; bacterial meningitis; Bipolar disorder; ap3 Depression; epillepsy; hepatosplegomegaly; Migraines; Tachycardia; - PSHx: 15:24 Adenoid excision; ear tubes; eye surgery; fundiplication; loop recorder; Splenectomy; ap3 tear duct surgeries; Tonsillectomy; - Immunization history:: Client reports receiving the 2nd dose of the Covid vaccine, Flu vaccine is not up to date. - Infectious Disease History:: Denies. - Social history:: Smoking status: Patient denies any tobacco usage or history of. ROS: 15:54 Constitutional: As per HPI kb Exam: 15:54 Constitutional: This is a well developed, well nourished patient who is awake, alert, kb and in no acute distress. Head/Face: Normocephalic, atraumatic. ENT: Moist Mucous membranes Cardiovascular: Regular rate Respiratory: Respirations even and unlabored. No increased work of breathing. Talking in full sentences MS/ Extremity: Pulses equal, no cyanosis. Neurovascular intact. Full, normal range of motion. Neuro: Awake and alert, GCS 15, oriented to person, place, time, and situation. 15:54 Skin: abscess, that is small, of the left upper arm, with induration, Vital Signs: 15:23 BP 130 / 84; Pulse 106; Resp 18; Temp 98.6; Pulse Ox 100% ; Weight 95.71 kg; Height 5 ap3 ft. 97 in. ; 15:23 Body Mass Index 6.02 (95.71 kg, 398.78 cm) ap3 MDM: 15:21 Medical Screening Exam initiated kb 15:55 Differential diagnosis: abscess, cellulitis. Data reviewed: vital signs, nurses notes. kb Historians other than the Patient: Parent: mother. Counseling: I had a detailed discussion with the patient and/or guardian regarding the historical points, exam findings, and any diagnostic results supporting the discharge/admit diagnosis, the need for outpatient follow up, a family practitioner, to return to the emergency department if symptoms worsen or persist or if there are any questions or concerns that arise at home. Administered Medications: No medications were administered Disposition Summary: 09/09/24 15:48 Discharge Ordered Notes: Location: Home kb Condition: Stable kb Diagnosis - Cutaneous abscess of left upper limb kb Followup: kb - With: Emergency Department - When: As needed - Reason: Worsening of condition Followup: kb - With: Private Physician - When: 2 - 3 days - Reason: Recheck today's complaints, Continuance of care, Re-evaluation by your physician Discharge Instructions: - Discharge Summary Sheet kb - Skin Abscess, [id number] kb Forms: - Medication Reconciliation Form kb - Antibiotic Education kb - Prescription Opioid Use kb - Patient Portal Instructions kb - Leadership Thank You Letter kb Prescriptions: - Cipro 500 mg Oral Tablet - take 1 tablet ORAL route every 12 hours for 7 days; 14 tablet; Refills: 0, kb Product Selection Permitted Addendum: 09/11/2024 12:44 Co-signature as Attending Physician, Jake Rosenberg MD I agree with the assessment and c lynn plan of care. Signatures: Lily Riley, ARLIN-Lucretia OLIVEROS-Jake Prince MD MD cha Prokisch, Amanda, RN RN ap3
[2024-09-09 17:54] VITALS: BP 130/84; TEMP 98.6; O2SAT 100
== END 2024-09-09 16:02 | disposition home or self-care (01) ==
LOC: ER 15:16
DX: L02.414 Cutaneous abscess of left upper limb (principal); F84.0 Autistic disorder
CPT/HCPCS: 99283

== ENCOUNTER 2024-09-13 23:07 | Emergency (ER) | payer OTHER ==
[2024-09-14] MEDS ORDERED: MORPHINE 2 MG/ML SYR ONE ×2 (00:22→01:25)
[2024-09-14] MEDS ORDERED: ONDANSETRON 4 MG/2 ML VIAL ONE ×2 (00:22→01:24)
[2024-09-14] MEDS ORDERED: NA CHLORIDE 0.9% 1,000 ML ONE (00:23)
[2024-09-14] MEDS ORDERED: MORPHINE 4 MG/ML SYR ONE (01:24)
[2024-09-14 01:42] LABS: Specific Gravity 1.024 (1.005-1.030); Urine Bilirubin NEGATIVE (Negative); Urine Blood Negative (Negative); Urine Clarity Clear (Clear); Urine Color Light-Yellow (Yellow); Urine Glucose NEGATIVE (Negative); Urine Ketones NEGATIVE (Negative); Urine Microscopic Reflex YN NO UMIC; Urine Nitrite NEGATIVE (Negative); Urine Protein NEGATIVE (Negative); Urine Urobilinogen Normal (Normal); Urine pH 5.5 (5.0-7.0)
[2024-09-14 02:47] LABS: Absolute Basophils 0.2 K/uL (0-0.5); Absolute Eosinophils 1.4 K/uL (0-0.5); Absolute Lymphocytes (CBC) 7.2 K/uL (0.7-4.9); Absolute Monocytes 1.2 K/uL (0.1-1.3); Absolute Neutrophil 5.3 K/uL (1.8-8.0); Hematocrit 43.5 % (39.6-49.0); Hemoglobin 15.6 g/dL (13.6-17.9); Lymphocytes % 47.6 % (15.3-44.8); MCH 32.7 pg (27.0-35.0); MCHC 35.7 g/dL (32.0-36.0); MCV 91.4 fL (80-100); MPV 7.3 fL (7.6-11.3); Monocytes % 7.8 % (3.3-12.3); Neutrophils % 34.6 % (41.7-73.7); Nucleated Red Blood Cells % 0.2 % (0-0); Platelets 477 thou/uL (152-406); RBC Red Blood Cell Count 4.76 M/uL (4.33-5.43); Red Cell Distribution Width 14.6 % (12.1-15.2)
[2024-09-14 02:56] LABS: Albumin 3.5 g/dL (3.4-5.0); Albumin/Globulin Ratio 1.1 (1.1-1.8); Bilirubin Total 0.6 mg/dL (0.2-1.0); Globulin 3.1 g/dL (2.3-3.5); Protein, Total 6.6 g/dL (6.4-8.2)
[2024-09-14 03:24] LABS: Band Neutrophils 1 % (0-1); Differential Total Cells Count 100; Eosinophils 10 % (0-3); Lymphocytes 59 % (15-42); Monocytes 0 % (0-10); Reactive Lymphocytes 3 %; Segmented Neutrophils 26 % (40-80)
[2024-09-14 03:25] LABS: Blood Morphology Comment NOTED (NOT SEEN); Burr Cells 2+; Platelet Estimate ADEQ; Polychromasia 1+
--- NOTE | 2024-09-14 04:30 | RAD REPORT ---
EXAM DESCRIPTION: Abdomen Pelvis W Contrast RadLex: CT ABDOMEN PELVIS WITH IV CONTRAST CLINICAL HISTORY: 18 years Male; ABD PAIN; IV ONLY Bed Name: 3 TECHNIQUE: CT of the abdomen and pelvis [with] intravenous contrast. All CT scans at this facility use dose modulation, iterative reconstruction, and/or weight based dosi ng when appropriate to reduce radiation dose to as low as reasonably achievable. COMPARISON: CT abdomen pelvis 04/16/2024 FINDINGS: Lower thorax: Lung bases are clear Abdomen: Stomach: Within normal limits Liver: No focal lesions. No intrahepatic ductal distention. Gallbladder: Nondistended Pancreas: Within normal limits Spleen: Not visualized, likely surgically absent. Right kidney: No hydronephrosis. No focal lesion. Left kidney: No hydronephrosis. No focal lesion. Adrenal glands: Within normal limits Vascular structures: Within normal limits Nodes: No lymphadenopathy by size criteria Pelvis: Small bowel: No significant distention. Appendix: Within normal limits Colon: No distention or acute pericolonic edema. Peritoneum: No free intraperitoneal fluid or air. Bones: No acute bone findings. Bladder: Mild diffuse wall thickening. Reproductive organs: No acute findings. IMPRESSION: 1. Mild diffuse bladder wall thickening, can be seen in setting of cystitis. Correlate with urinaly sis. 2. Otherwise no acute abdominopelvic findings. Electronically signed by: Mary Quach MD 09/14/2024 04:24 AM [facility] [id number] Due to temporary technical issues with the [employer]ACS[employer] reporting system, reports are being guy d by the in-house radiologist without review as a courtesy to ensure prompt reporting the interpreting radiologist is fully responsible for the content of the report. Transcribed Date/Time: 09/14/2024 4:29 AM
--- NOTE | 2024-09-14 04:58 | EDPHYS ---
Physician Documentation [facility] Name: Manjinder Arrieta Age: 18 yrs Sex: Male : 2005 Arrival Date: 09/13/2024 Time: 23:07 Bed 8 Private MD: ED Physician Tyler Padilla HPI: 09/13 23:18 This 18 yrs old Male presents to ER via Ambulatory with complaints of Abdominal Pain, kb Low Back Pain. 23:18 Pt is a 18 year old male who presents for RLQ pain and nausea that started at 2030 this kb evening. Denies vomiting, diarrhea, fever. . Historical: - Allergies: 23:17 adhesive tape; vc1 23:17 Adhesives; vc1 23:17 Albuterol; vc1 23:17 cefixime; vc1 23:17 Clindamycin; vc1 23:17 montelukast; vc1 23:17 [place] (Prunus Persica); vc1 23:17 PENICILLINS; vc1 23:17 Prednisone; vc1 23:17 Sulfa (Sulfonamide Antibiotics); vc1 23:17 Suprax; vc1 23:17 Vancomycin; vc1 - PMHx: 23:17 ADD/ADHD; Tachycardia; Anemia; Anxiety; Asthma; Autism; bacterial meningitis; Bipolar vc1 disorder; Depression; epillepsy; hepatosplegomegaly; Migraines; - PSHx: 23:17 Tonsillectomy; tear duct surgeries; Splenectomy; Adenoid excision; ear tubes; eye vc1 surgery; fundiplication; loop recorder; - Immunization history:: Client reports receiving the 2nd dose of the Covid vaccine, Flu vaccine is not up to date. - Infectious Disease History:: Denies. - Social history:: Smoking status: Patient denies any tobacco usage or history of. ROS: 23:17 Constitutional: As per HPI kb Exam: 23:17 Constitutional: This is a well developed, well nourished patient who is awake, alert, kb and in no acute distress. Head/Face: Normocephalic, atraumatic. ENT: Moist Mucous membranes Cardiovascular: Regular rate Respiratory: Respirations even and unlabored. No increased work of breathing. Talking in full sentences Skin: Warm, dry with normal turgor. Normal color. MS/ Extremity: Pulses equal, no cyanosis. Neurovascular intact. Full, normal range of motion. Neuro: Awake and alert, GCS 15, oriented to person, place, time, and situation. 23:17 Abdomen/GI: Inspection: abdomen appears normal, Bowel sounds: normal, Palpation: soft, in all quadrants, moderate abdominal tenderness, in the right lower quadrant, Vital Signs: 23:15 Weight 97.52 kg; Height 5 ft. 9 in. ; Pain 10/10; vc1 23:20 BP 142 / 85; Pulse 103; Resp 16; Temp 98.5; Pulse Ox 98% ; vc1 09/14 01:05 BP 112 / 76; Pulse 81; Resp 16; Temp 98.5; Pulse Ox 100% ; Pain 7/10; bm8 03:03 BP 112 / 75; Pulse 81; Resp 17; Temp 98.5; Pulse Ox 100% ; Pain 0/10; bm8 05:10 BP 120 / 77; Pulse 75; Resp 20; Temp 98.6; Pulse Ox 94% ; Pain 0/10; bm8 09/13 23:15 Body Mass Index 31.75 (97.52 kg, 175.26 cm) 1 09/13 23:15 Pain Scale: Adult vc1 09/14 01:05 Pain Scale: Adult bm8 03:03 Pain Scale: Adult bm8 05:10 Pain Scale: Adult bm8 Garrett Coma Score: 01:05 Eye Response: spontaneous(4). Motor Response: obeys commands(6). Verbal Response: bm8 oriented(5). Total: 15. 03:03 Eye Response: spontaneous(4). Motor Response: obeys commands(6). Verbal Response: bm8 oriented(5). Total: 15. 05:10 Eye Response: spontaneous(4). Motor Response: obeys commands(6). Verbal Response: bm8 oriented(5). Total: 15. MDM: 09/13 23:11 Medical Screening Exam initiated kb 23:18 Data reviewed: vital signs, nurses notes. Historians other than the Patient: Parent: linh mother. 09/14 00:34 Transition of care: After a detail discussion of the patient's case, care is kb transferred to Tyler Padilla MD. 03:03 ED course: . sp4 04:53 ED course: CLINICAL HISTORY: 18 years Male; ABD PAIN; IV ONLYBed Name: IW3 TECHNIQUE: sp4 CT of the abdomen and pelvis [with] intravenous contrast. All CT scans at this facility use dose modulation, iterative reconstruction, and/or weight based dosing when appropriate to reduce radiation dose to as low as reasonably achievable. COMPARISON: CT abdomen pelvis 04/16/2024 FINDINGS: Lower thorax: Lung bases are clear Abdomen: Stomach:Within normal limits Liver:No focal lesions. No intrahepatic ductal distention. Gallbladder:Nondistended Pancreas:Within normal limits Spleen:Not visualized, likely surgically absent. Right kidney:No hydronephrosis. No focal lesion. Left kidney:No hydronephrosis. No focal lesion. Adrenal glands:Within normal limits Vascular structures:Within normal limits Nodes:No lymphadenopathy by size criteria Pelvis: Small bowel:No significant distention. Appendix:Within normal limits Colon:No distention or acute pericolonic edema. Peritoneum: No free intraperitoneal fluid or air. Bones: No acute bone findings. Bladder: Mild diffuse wall thickening. Reproductive organs: No acute findings. IMPRESSION: 1. Mild diffuse bladder wall thickening, can be seen in setting of cystitis. Correlate with urinalysis. 2. Otherwise no acute abdominopelvic findings. Electronically signed by: Mary Quach MD 09/14/2024 04:24. 09/13 23:12 Order name: CBC with Diff; Complete Time: 04:53 kb 09/13 23:12 Order name: CMP; Complete Time: 03:19 kb 09/13 23:12 Order name: Lipase; Complete Time: 03:19 kb 09/13 23:12 Order name: Urinalysis w/ reflexes; Complete Time: 01:49 kb 09/14 02:50 Order name: Manual Differential; Complete Time: 04:53 EDMS 09/13 23:17 Order name: CT Abd/Pelvis - IV Contrast Only; Complete Time: 04:53 kb 09/13 23:12 Order name: IV Saline Lock; Complete Time: 23:58 kb 09/13 23:12 Order name: Labs collected and sent; Complete Time: 23:58 kb Administered Medications: 00:48 Drug: morphine IVP or IV 2 mg IVP once over 4 mins Route: IVP; Infused Over: 4 mins; bm8 Site: right antecubital; 03:05 Follow up: Response: No adverse reaction bm8 00:48 Drug: Ondansetron IVP 4 mg IVP once; over 2 minutes Route: IVP; Site: right antecubital;bm8 03:05 Follow up: Response: No adverse reaction bm8 00:48 Drug: NS 0.9% IV 1000 ml IV at 1000 ml once; to be given as a bolus over 60 minutes bm8 Route: IV; Rate: 1000 ml; Site: right antecubital; 03:05 Follow up: Response: No adverse reaction; IV Status: Completed infusion; IV Intake: bm8 1000ml 01:41 Drug: morphine IVP or IV 6 mg IVP once over 4 mins Route: IVP; Infused Over: 4 mins; bm8 Site: right antecubital; 03:05 Follow up: Response: No adverse reaction bm8 01:41 Drug: Ondansetron IVP 4 mg IVP once; over 2 minutes Route: IVP; Site: right antecubital;bm8 03:05 Follow up: Response: No adverse reaction bm8 Disposition: 01:18 Co-signature as Attending Physician, Tyler Padilla MD I agree with the assessment sp4 and plan of care. I reviewed the patient's care provided by Advanced Practice Provider \T\ agree w/ the diagnosis \T\ care plan. I personally saw the pt \T\ performed a substantive portion of the visit, incldng all aspects of the (History/Exam/Medical Decision Making). Disposition Summary: 09/14/24 04:58 Discharge Ordered Notes: Location: Home sp4 Problem: new sp4 Symptoms: have improved sp4 Condition: Stable sp4 Diagnosis - Abdominal pain, Generalized sp4 - Low back pain sp4 Followup: sp4 - With: Private Physician - When: 7 - 10 days - Reason: Recheck today's complaints Discharge Instructions: - Discharge Summary Sheet sp4 - Acute Back Pain, Adult sp4 Forms: - Patient Portal Instructions sp4 Prescriptions: - naproxen 500 mg Oral tablet - take 1 tablet ORAL route every 12 hours as needed for pain; 50 tablet; Refills: sp4 0, Product Selection Permitted - methocarbamol 750 mg Oral tablet - take 2 tablets ORAL route every 8 hours for 3 days PRN back pain; 60 tablet; sp4 Refills: 0, Product Selection Permitted Signatures: Dispatcher [employer] Lily Burrows FNP-C SAW FEEDER-Kinza Lindsay, RN RN vc1 Tyler Padilla MD MD sp4 Brian Angeles, RN RN bm8
--- NOTE | 2024-09-14 04:58 | ER ---
Nurse's Notes [facility] Name: Manjinder Arrieta Age: 18 yrs Sex: Male : 2005 Arrival Date: 09/13/2024 Time: 23:07 Bed 8 Private MD: Diagnosis: Abdominal pain, Generalized;Low back pain Presentation: 09/13 23:15 Chief complaint: Parent and/or Guardian states: lower right abdominal pain started vc1 around 2029. Coronavirus screen: Client denies travel out of the [place] in the last 14 days. At this time, the client does not indicate any symptoms associated with coronavirus-19. Ebola Screen: Patient negative for fever greater than or equal to 101.5 degrees Fahrenheit, and additional compatible Ebola Virus Disease symptoms Patient denies exposure to infectious person. Patient denies travel to an Ebola-affected area in the 21 days before illness onset. No symptoms or risks identified at this time. Initial Sepsis Screen: Does the patient meet any 2 criteria? No. Patient's initial sepsis screen is negative. Does the patient have a suspected source of infection? No. Patient's initial sepsis screen is negative. Risk Assessment: Do you want to hurt yourself or someone else? Patient reports no desire to harm self or others. Onset of symptoms was September 13, 2024 at 20:30. 23:15 Method Of Arrival: Ambulatory vc1 23:15 Acuity: YESSY 3 vc1 Triage Assessment: 23:21 General: Appears in no apparent distress. uncomfortable, Behavior is cooperative, vc1 crying. Pain: Complains of pain in right lower quadrant Pain does not radiate. Pain currently is 10 out of 10 on a pain scale. Also complains of nausea. GI: Abdomen is round non-distended, Reports nausea. Historical: - Allergies: 23:17 adhesive tape; vc1 23:17 Adhesives; vc1 23:17 Albuterol; vc1 23:17 cefixime; vc1 23:17 Clindamycin; vc1 23:17 montelukast; vc1 23:17 [place] (Prunus Persica); vc1 23:17 PENICILLINS; vc1 23:17 Prednisone; vc1 23:17 Sulfa (Sulfonamide Antibiotics); vc1 23:17 Suprax; vc1 23:17 Vancomycin; vc1 - PMHx: 23:17 ADD/ADHD; Tachycardia; Anemia; Anxiety; Asthma; Autism; bacterial meningitis; Bipolar vc1 disorder; Depression; epillepsy; hepatosplegomegaly; Migraines; - PSHx: 23:17 Tonsillectomy; tear duct surgeries; Splenectomy; Adenoid excision; ear tubes; eye vc1 surgery; fundiplication; loop recorder; - Immunization history:: Client reports receiving the 2nd dose of the Covid vaccine, Flu vaccine is not up to date. - Infectious Disease History:: Denies. - Social history:: Smoking status: Patient denies any tobacco usage or history of. Screenin/27 01:05 [facility] ED Fall Risk Assessment (Adult) History of falling in the last 3 months, bm8 including since admission No falls in past 3 months (0 pts) Confusion or Disorientation No (0 pts) Intoxicated or Sedated No (0 pts) Impaired Gait No (0 pts) Mobility Assist Device Used No (0 pt) Altered Elimination No (0 pt) Score/Fall Risk Level 0 - 2 = Low Risk Oriented to surroundings, Maintained a safe environment, Educated pt \T\ family on fall prevention, incl call for assistance when getting out of bed, Assessed \T\ reinforced patient's understanding of fall precautions, Hourly rounding (assess needs \T\ fall precautionary measures) done, Used ambulatory aids as needed (educated on \T\ assisted with), Used gait belt as appropriate. Abuse screen: Denies threats or abuse. Nutritional screening: No deficits noted. Tuberculosis screening: No symptoms or risk factors identified. Assessment: 01:05 General: Appears in no apparent distress. comfortable, Behavior is calm, cooperative, bm8 appropriate for age. Pain: Complains of pain in right lower quadrant Pain currently is 7 out of 10 on a pain scale. Neuro: No deficits noted. Level of Consciousness is awake, alert, obeys commands, Oriented to person, place, time, situation, Appropriate for age. Cardiovascular: No deficits noted. Denies chest pain. Respiratory: Airway is patent Respiratory effort is even, unlabored, Respiratory pattern is regular, symmetrical, Breath sounds are clear bilaterally. GI: Bowel sounds present X 4 quads. Abdomen is tender to palpation in right lower quadrant. : No signs and/or symptoms were reported regarding the genitourinary system. EENT: No signs and/or symptoms were reported regarding the EENT system. Derm: No signs and/or symptoms reported regarding the dermatologic system. Musculoskeletal: No signs and/or symptoms reported regarding the musculoskeletal system. 03:03 Reassessment: Patient appears in no apparent distress at this time. Patient and/or bm8 family updated on plan of care and expected duration. Pain level reassessed. Patient denies pain at this time. Patient states feeling better. Patient states symptoms have improved. 05:10 Reassessment: Patient appears in no apparent distress at this time. Patient and/or bm8 family updated on plan of care and expected duration. Pain level reassessed. Patient is alert, oriented x 3, equal unlabored respirations, skin warm/dry/pink. Patient denies pain at this time. Patient states feeling better. Patient states symptoms have improved. Vital Signs: 09/13 23:15 Weight 97.52 kg; Height 5 ft. 9 in. ; Pain 10/10; vc1 23:20 BP 142 / 85; Pulse 103; Resp 16; Temp 98.5; Pulse Ox 98% ; vc1 09/14 01:05 BP 112 / 76; Pulse 81; Resp 16; Temp 98.5; Pulse Ox 100% ; Pain 7/10; bm8 03:03 BP 112 / 75; Pulse 81; Resp 17; Temp 98.5; Pulse Ox 100% ; Pain 0/10; bm8 05:10 BP 120 / 77; Pulse 75; Resp 20; Temp 98.6; Pulse Ox 94% ; Pain 0/10; bm8 09/13 23:15 Body Mass Index 31.75 (97.52 kg, 175.26 cm) vc1 09/13 23:15 Pain Scale: Adult vc1 09/14 01:05 Pain Scale: Adult bm8 03:03 Pain Scale: Adult bm8 05:10 Pain Scale: Adult bm8 Jacey Coma Score: 01:05 Eye Response: spontaneous(4). Motor Response: obeys commands(6). Verbal Response: bm8 oriented(5). Total: 15. 03:03 Eye Response: spontaneous(4). Motor Response: obeys commands(6). Verbal Response: bm8 oriented(5). Total: 15. 05:10 Eye Response: spontaneous(4). Motor Response: obeys commands(6). Verbal Response: bm8 oriented(5). Total: 15. ED Course: 09/13 23:11 Patient arrived in ED. gm2 23:11 Lily Riley [facility]C [facility] kb 23:11 Tyler Padilla MD is Attending Physician. kb 23:17 Triage completed. vc1 23:19 Arm band placed on right wrist. vc1 23:56 Inserted saline lock: 20 gauge in right antecubital area, using aseptic technique. kmf 23:58 CBC with Diff Sent. kmf 23:58 CMP Sent. kmf 23:59 Door closed. Noise minimized. Visitors limited. Warm blanket given. Verbal reassurance kmf given. 23:59 Lipase Sent. kmf 23:59 Initial lab(s) drawn, by me, sent to lab. kmf 09/14 00:15 Brian Angeles, RN is Primary Nurse. bm8 00:47 CBC with Diff Sent. kmf 00:47 CMP Sent. kmf 00:47 Lipase Sent. kmf 01:05 Patient has correct armband on for positive identification. Placed in gown. Bed in low bm8 position. Call light in reach. Side rails up X2. Adult w/ patient. Client placed on continuous cardiac and pulse oximetry monitoring. NIBP monitoring applied. quality assurance monitor body on. Pulse ox on. NIBP on. 01:05 No provider procedures requiring assistance completed. Patient maintains SpO2 bm8 saturation greater than 95% on room air. 02:43 CT Abd/Pelvis - IV Contrast Only In Process Unspecified. EDMS 05:10 Provided Education on: POST ER CARE. bm8 05:10 IV discontinued, intact, bleeding controlled, No redness/swelling at site. Pressure bm8 dressing applied. Administered Medications: 00:48 Drug: morphine IVP or IV 2 mg IVP once over 4 mins Route: IVP; Infused Over: 4 mins; bm8 Site: right antecubital; 03:05 Follow up: Response: No adverse reaction bm8 00:48 Drug: Ondansetron IVP 4 mg IVP once; over 2 minutes Route: IVP; Site: right antecubital;bm8 03:05 Follow up: Response: No adverse reaction bm8 00:48 Drug: NS 0.9% IV 1000 ml IV at 1000 ml once; to be given as a bolus over 60 minutes bm8 Route: IV; Rate: 1000 ml; Site: right antecubital; 03:05 Follow up: Response: No adverse reaction; IV Status: Completed infusion; IV Intake: bm8 1000ml 01:41 Drug: morphine IVP or IV 6 mg IVP once over 4 mins Route: IVP; Infused Over: 4 mins; bm8 Site: right antecubital; 03:05 Follow up: Response: No adverse reaction bm8 01:41 Drug: Ondansetron IVP 4 mg IVP once; over 2 minutes Route: IVP; Site: right antecubital;bm8 03:05 Follow up: Response: No adverse reaction bm8 Medication: 01:05 VIS not applicable for this client. bm8 Intake: 03:05 IV: 1000ml; Total: 1000ml. bm8 Outcome: 04:58 Discharge ordered by . sp4 05:10 Discharged to home ambulatory, bm8 05:10 Condition: stable 05:10 Discharge instructions given to patient, family, Instructed on discharge instructions, follow up and referral plans. no drinking with medication, no driving heavy equipment, medication usage, safety practices, Demonstrated understanding of instructions, follow-up care, medications, Prescriptions given X 2, 05:12 Patient left the ED. bm8 Signatures: Dispatcher [employer] EDMS Lily Riley, MARY LIVINGSTONP-Kinza Lindsay RN RN 1 Tyler Padilla MD MD sp4 Eugenie Wisdom 2 Lynn Neumann [facility] Brian Angeles RN RN bm8
[2024-09-14 05:23] VITALS: BP 120/77; TEMP 98.6; O2SAT 94
== END 2024-09-14 05:12 | disposition home or self-care (01) ==
LOC: ER 23:07
DX: R10.84 Generalized abdominal pain (principal); M54.50 Low back pain, unspecified; R11.0 Nausea; F84.0 Autistic disorder
CPT/HCPCS: 36415; 74177; 80053; 81003; 83690; 85025; 96361; 96374; 96375; 99285; J2270; J2405; J7030; Q9967

== ENCOUNTER 2024-11-04 21:09 | Emergency (ER) | payer OTHER ==
--- OUTSIDE RECORDS SUMMARY | 2024-11-04 21:12 | XMS REPORT | Clinical Summary ---
Author Name Unknown Organization [facility] [place] Address [address] [place] [address] Care Team Providers Care Medical Observer Name Role Phone ThomasbenniegurmeetprasadPhillip Unavailable Karly Shelton Unavailable Pipes, Vilma ANP Unavailable [phone] Gabriel Gonzales DO Unavailable [phone] Encounters Date Type Department Care Team Description 10/30/2024 Telephone MDA PATIENT ACCESS Julito Mccain RN after 11/05/2023 Social History Tobacco Use Types Packs/Day Years Used Date Smoking Tobacco: Never Assessed Sex and Gender Information Value Date Recorded Sex Assigned at Not on file Legal Sex Male 10:41 AM CDT Gender Identity Not on file Sexual Orientation Not on file Plan of Treatment Health Maintenance Due Date Last Done Comments COVID-19 Vaccine ( season) 2024 11/23/2020, 11/02/2020, 10/30/2020 Influenza Vaccine (#1) 2024 2, 06/26/2021, 05/24/2020, Additional history exists Pneumococcal Vaccine Aged Out 12/26/2020, 10/30/2020, 05/29/2005, Additional history exists No longer eligible based on patient's age to complete this topic Insurance Care Teams Medical Observer Relationship Specialty Start Date End Date Phillip Kulkarni [id number] [id number] PCP - External Referring Pediatric Hematology and Oncology 10/30/24 Karly Shelton [address] [place] [address] [place] [phone] PCP - External Primary Care Provider 10/31/24 Vilma Ross ANP [address] [place] [phone] PCP - External Follow Up A 10/31/24 Gabriel Gonzales DO [address] [place] [address] Dr [address] [place] [id number] PCP - External Follow Up B Pulmonary Medicine 10/31/24
[2024-11-04] MEDS ORDERED: SILVER SULFADIAZINE 1% 50 GM TOP ONE (21:47)
[2024-11-04] MEDS ORDERED: KETOROLAC 30 MG/ML INJ ONE (21:47)
--- NOTE | 2024-11-04 21:54 | EDPHYS ---
Physician Documentation [facility] Name: Manjinder Arrieta Age: 18 yrs Sex: Male : 2005 Arrival Date: 11/04/2024 Time: 21:09 Bed IW2 Private MD: ED Physician Tyler Padilla HPI: 11/04 21:23 This 18 yrs old Male presents to ER via Unassigned with complaints of Sunburn.sp4 11/05 19:41 1-year-old male presents with acute sunburn to his back and posterior neck associated sp4 with blistering. Patient has a small area to his posterior neck that is moderate to severe sunburn second-degree with blistering. Patient states he was fishing outside today. Patient has history of autism and ADHD. Patient is accompanied by his parent. Historical: - Allergies: 11/04 21:34 adhesive tape; lg3 21:34 Adhesives; lg3 21:34 Albuterol; lg3 21:34 cefixime; lg3 21:34 Clindamycin; lg3 21:34 montelukast; lg3 21:34 Bent (Prunus Persica); lg3 21:34 PENICILLINS; lg3 21:34 Prednisone; lg3 21:34 Sulfa (Sulfonamide Antibiotics); lg3 21:34 Suprax; lg3 21:34 Vancomycin; lg3 - PMHx: 21:34 ADD/ADHD; Anemia; Anxiety; Asthma; Autism; bacterial meningitis; Bipolar disorder; lg3 Depression; epillepsy; hepatosplegomegaly; Migraines; Tachycardia; - PSHx: 21:34 Adenoid excision; ear tubes; eye surgery; fundiplication; loop recorder; Splenectomy; lg3 tear duct surgeries; Tonsillectomy; - Immunization history:: Adult Immunizations up to date. - Infectious Disease History:: Denies. - Social history:: Smoking status: Patient denies any tobacco usage or history of. Patient/guardian denies using alcohol, street drugs. - Family history:: not pertinent. ROS: 11/05 19:42 Constitutional: Negative for fever, chills, and weight loss, positive blistering sp4 posterior neck sunburn All other systems are negative, Exam: 19:42 Constitutional: This is a well developed, well nourished patient who is awake, alert, sp4 and in no acute distress. Moderate first-degree back and neck sunburn, also area to posterior neck with blistering second-degree sunburn, no sign of third-degree sunburn Head/Face: Normocephalic, atraumatic. Eyes: Pupils equal round and reactive to light, extra-ocular motions intact. Lids and lashes normal. Conjunctiva and sclera are not injected. Cornea within normal limits. Periorbital areas with no swelling, redness, or edema. ENT: Nares patent. No nasal discharge, no septal abnormalities noted. Tympanic membranes are normal and external auditory canals are clear. Oropharynx with no redness, swelling, or masses, exudates, or evidence of obstruction, uvula midline. Mucous membranes moist. Neck: Trachea midline, no thyromegaly or masses palpated, and no cervical lymphadenopathy. Supple, full range of motion without nuchal rigidity, or vertebral point tenderness. Chest/axilla: Normal chest wall appearance and motion. Nontender with no deformity. No lesions are appreciated. Cardiovascular: Regular rate and rhythm with a normal S1 and S2. No gallops, murmurs, or rubs. Normal PMI, no JVD. No pulse deficits. Respiratory: Lungs have equal breath sounds bilaterally, clear to auscultation and percussion. No rales, rhonchi or wheezes noted. No increased work of breathing, no retractions or nasal flaring. Abdomen/GI: Soft, with normal bowel sounds. No distension or tympany. No guarding or rebound. No evidence of tenderness throughout. Back: No spinal tenderness. No costovertebral tenderness. Skin: Warm, dry with normal turgor. Normal color with no rashes, no lesions, and no evidence of cellulitis. MS/ Extremity: Pulses equal, no cyanosis. Neurovascular intact. Full, normal range of motion. Neuro: Awake and alert, GCS 15, oriented to person, place, time, and situation. Cranial nerves II-XII grossly intact. Motor strength 5/5 in all extremities. Sensory grossly intact. Vital Signs: 11/04 21:29 BP 125 / 81; Pulse 72; Resp 17 S; Temp 98.1(O); Pulse Ox 98% on R/A; Weight 98.43 kg lg3 (R); Height 5 ft. 9 in. (R); Pain 8/10; 21:29 Body Mass Index 32.04 (98.43 kg, 175.26 cm) lg3 21:29 Pain Scale: Adult lg3 [place] Coma Score: 11/05 19:42 Eye Response: spontaneous(4). Motor Response: obeys commands(6). Verbal Response: sp4 oriented(5). Total: 15. MDM: 11/04 21:53 Medical Screening Exam initiated sp4 11/05 19:44 Differential diagnosis: 1st degree lacy, 2nd degree lacy, 3rd degree lacy, sp4 inhalation injury. Data reviewed: vital signs, nurses notes, old medical records. Consideration of Admission/Observation Escalation of care including admission/observation considered. ED course: Patient was prescribed Silvadene and Tylenol 3 liquid. Patient not able to take solid medication. Administered Medications: 11/04 22:01 Drug: Silver SulfADIAZINE Topical Cream 1 % 1 application Topical once Route: Topical; lg3 Site: affected area; 22:07 Follow up: Response: No adverse reaction lg3 22:02 Drug: Ketorolac IM 60 mg IM once Route: IM; Site: left gluteus; lg3 22:07 Follow up: Response: No adverse reaction lg3 22:02 CANCELLED (not avaliable): acetaminophen-codeineliquid 20 ml Feeding Tube once; RASS on lg3 ADMIN: Combtv4, Very Agttd3, Agttd2, Rstlss1, AlertClm0, Drwsy-1, Lt Sdtn-2, Mod Sdtn-3, Dp Sdtn-4, UnArsble-5 Disposition Summary: 11/04/24 21:53 Discharge Ordered Notes: Location: Home sp4 Problem: new sp4 Symptoms: have improved sp4 Condition: Stable sp4 Diagnosis - First-degree sunburn posterior back and neck, second-degree sunburn with sp4 blistering to posterior neck and upper back Followup: sp4 - With: Private Physician - When: 7 - 10 days - Reason: Recheck today's complaints Discharge Instructions: - Discharge Summary Sheet sp4 - Burn Care, Adult, [id number] sp4 Forms: - Patient Portal Instructions sp4 Prescriptions: - Silvadene 1 % Topical cream - apply 1 application TOPICAL route 2 times per day for 14 days Dispense 100 g sp4 or Two containers 50 g each; 100 gram; Refills: 0, Product Selection Permitted - acetaminophen-codeine 120 mg-12 mg /5 mL (5 mL) Oral solution - take 15 milliliter ORAL route every 6 hours PRN pain; 240 milliliter; Refills: sp4 0, Product Selection Permitted Signatures: Sarah Mcqueen RN RN lg3 Tyler Padilla MD MD sp4 Corrections: (The following items were deleted from the chart) 22:02 21:39 Acetaminophen-Codeine Feeding Tube Liquid 20 ml Feeding Tube once; RASS on ADMIN: lg3 Combtv4, Very Agttd3, Agttd2, Rstlss1, AlertClm0, Drwsy-1, Lt Sdtn-2, Mod Sdtn-3, Dp Sdtn-4, UnArsble-5 ordered. sp4
--- NOTE | 2024-11-04 21:54 | ER ---
Nurse's Notes [facility] Name: Manjinder Arrieta Age: 18 yrs Sex: Male : 2005 Arrival Date: 11/04/2024 Time: 21:09 Bed IW2 Private MD: Diagnosis: First-degree sunburn posterior back and neck, second-degree sunburn with blistering to posterior neck and upper back Presentation: 11/04 21:29 Chief complaint: Parent and/or Guardian states: sunburn to back of neck yesterday. lg3 blistering beginning this morning. 330mg chewable Tylenol taken at 1900. Coronavirus screen: Client denies travel out of the [place] in the last 14 days. At this time, the client does not indicate any symptoms associated with coronavirus-19. Ebola Screen: No symptoms or risks identified at this time. Initial Sepsis Screen: Does the patient meet any 2 criteria? No. Patient's initial sepsis screen is negative. Does the patient have a suspected source of infection? No. Patient's initial sepsis screen is negative. Risk Assessment: Do you want to hurt yourself or someone else? Patient reports no desire to harm self or others. Onset of symptoms was November 04, 2024. 21:29 Method Of Arrival: Ambulatory lg3 21:29 Acuity: YESSY 4 lg3 Triage Assessment: 21:34 General: Appears in no apparent distress. uncomfortable, Behavior is calm, cooperative. lg3 Pain: Complains of pain in back of neck. EENT: No deficits noted. No signs and/or symptoms were reported regarding the EENT system. Neuro: No deficits noted. [place] Agitation-Sedation Scale (RASS): 0 - Alert and Calm Level of Consciousness is awake, alert, obeys commands, Oriented to person, place, time, situation. Cardiovascular: No deficits noted. Denies chest pain, shortness of breath, Capillary refill < 3 seconds Clubbing of nail beds is absent JVD is absent Patient's skin is warm and dry. Respiratory: No deficits noted. Airway is patent Respiratory effort is even, unlabored, Respiratory pattern is regular, symmetrical. GI: No deficits noted. No signs and/or symptoms were reported involving the gastrointestinal system. : No signs and/or symptoms were reported regarding the genitourinary system. Derm: Skin is intact, is healthy with good turgor, Skin is dry, Skin is normal, Skin temperature is warm sunburn and blistering noted to back of neck. Injury Description: Patient sustained second-degree burn(s) to back of neck. Historical: - Allergies: 21:34 adhesive tape; lg3 21:34 Adhesives; lg3 21:34 Albuterol; lg3 21:34 cefixime; lg3 21:34 Clindamycin; lg3 21:34 montelukast; lg3 21:34 Crane (Prunus Persica); lg3 21:34 PENICILLINS; lg3 21:34 Prednisone; lg3 21:34 Sulfa (Sulfonamide Antibiotics); lg3 21:34 Suprax; lg3 21:34 Vancomycin; lg3 - PMHx: 21:34 ADD/ADHD; Anemia; Anxiety; Asthma; Autism; bacterial meningitis; Bipolar disorder; lg3 Depression; epillepsy; hepatosplegomegaly; Migraines; Tachycardia; - PSHx: 21:34 Adenoid excision; ear tubes; eye surgery; fundiplication; loop recorder; Splenectomy; lg3 tear duct surgeries; Tonsillectomy; - Immunization history:: Adult Immunizations up to date. - Infectious Disease History:: Denies. - Social history:: Smoking status: Patient denies any tobacco usage or history of. Patient/guardian denies using alcohol, street drugs. - Family history:: not pertinent. Screenin:40 [facility] ED Fall Risk Assessment (Adult) History of falling in the last 3 months, lg3 including since admission No falls in past 3 months (0 pts) Confusion or Disorientation No (0 pts) Intoxicated or Sedated No (0 pts) Impaired Gait No (0 pts) Mobility Assist Device Used No (0 pt) Altered Elimination No (0 pt) Score/Fall Risk Level 0 - 2 = Low Risk Oriented to surroundings, Maintained a safe environment, Educated pt \T\ family on fall prevention, incl call for assistance when getting out of bed, Assessed \T\ reinforced patient's understanding of fall precautions. Abuse screen: Denies threats or abuse. Denies injuries from another. Nutritional screening: No deficits noted. Tuberculosis screening: No symptoms or risk factors identified. Assessment: 21:40 General: see triage assessment. lg3 Vital Signs: 21:29 BP 125 / 81; Pulse 72; Resp 17 S; Temp 98.1(O); Pulse Ox 98% on R/A; Weight 98.43 kg lg3 (R); Height 5 ft. 9 in. (R); Pain 8/10; 21:29 Body Mass Index 32.04 (98.43 kg, 175.26 cm) lg3 21:29 Pain Scale: Adult lg3 [place] Coma Score: 11/05 19:42 Eye Response: spontaneous(4). Motor Response: obeys commands(6). Verbal Response: sp4 oriented(5). Total: 15. ED Course: 11/04 21:12 Patient arrived in ED. [email or web address] 21:23 Tyler Padilla MD is Attending Physician. sp4 21:34 Triage completed. lg3 21:34 Arm band placed on right wrist. lg3 21:40 Patient has correct armband on for positive identification. lg3 21:40 No provider procedures requiring assistance completed. Burn care of medium second lg3 degree burn to back of neck Dressed with Silvadene cream, dry dressing. 22:06 Provided Education on: burn/wound care. lg3 22:06 Patient did not have IV access during this emergency room visit. lg3 Administered Medications: 22:01 Drug: Silver SulfADIAZINE Topical Cream 1 % 1 application Topical once Route: Topical; lg3 Site: affected area; 22:07 Follow up: Response: No adverse reaction lg3 22:02 Drug: Ketorolac IM 60 mg IM once Route: IM; Site: left gluteus; lg3 22:07 Follow up: Response: No adverse reaction lg3 22:02 CANCELLED (not avaliable): acetaminophen-codeineliquid 20 ml Feeding Tube once; RASS on lg3 ADMIN: Combtv4, Very Agttd3, Agttd2, Rstlss1, AlertClm0, Drwsy-1, Lt Sdtn-2, Mod Sdtn-3, Dp Sdtn-4, UnArsble-5 Medication: 21:40 VIS not applicable for this client. lg3 Outcome: 21:53 Discharge ordered by . sp4 22:06 Discharged to home ambulatory, with family, lg3 22:06 Condition: stable 22:06 Discharge instructions given to patient, deburrer strip, Instructed on discharge instructions, follow up and referral plans. medication usage, wound care, Demonstrated understanding of instructions, follow-up care, medications, wound care, Prescriptions given X 2, 22:07 Patient left the ED. lg3 Signatures: Sarah Mcqueen RN RN lg3 Jovana Morse [email or web address] Tyler Padilla MD MD sp4
[2024-11-05 00:08] VITALS: BP 125/81; TEMP 98.1; O2SAT 98
== END 2024-11-04 22:07 | disposition home or self-care (01) ==
LOC: ER 21:09
DX: L55.1 Sunburn of second degree (principal); L55.0 Sunburn of first degree; F84.0 Autistic disorder
CPT/HCPCS: 96372; 99284

== ENCOUNTER 2024-12-11 22:37 | Emergency (ER) | payer OTHER ==
--- OUTSIDE RECORDS SUMMARY | 2024-12-11 22:40 | XMS REPORT | Clinical Summary ---
Author Name Unknown Organization [facility] Address [address] [place] [address] Care Team Providers Care Slot Machine Repairer Name Role Phone Phillip Kulkarni Unavailable [phone] Karly Shelton Unavailable PipVilma fletcher ANP Unavailable [phone] Gabriel Gonzales DO Unavailable [phone] Encounters Date Type Department Care Team Description 10/30/2024 Telephone [facility] PATIENT ACCESS Julito Mccain RN after 12/12/2023 Social History Tobacco Use Types Packs/Day Years Used Date Smoking Tobacco: Never Assessed Sex and Gender Information Value Date Recorded Sex Assigned at Not on file Legal Sex Male 10:41 AM CDT Gender Identity Not on file Sexual Orientation Not on file Plan of Treatment Health Maintenance Due Date Last Done Comments COVID-19 Vaccine ( season) 2024 11/23/2020, 11/02/2020, 10/30/2020 Influenza Vaccine (Season Ended) 2025 05/18/2022, 06/26/2021, 05/24/2020, Additional history exists Pneumococcal Vaccine Aged Out 12/26/2020, 10/30/2020, 05/29/2005, Additional history exists No longer eligible based on patient's age to complete this topic Insurance MEDICAID STAR NON SSI Member Subscriber Plan / Payer (Ef fective 2024-Present) Name:Manjinder Arrieta Relation to Subscriber:Self Name:Manjinder Arrieta Payer ID:[id number] Group ID:[id number] Type:Medicaid Address: [address] [place] [facility] MEDICAID [place]AR NON SSI Member Subscriber Plan / Payer (Ef fective 2024-Present) Name:Manjinder Arrieta Relation to Subscriber:Self Name:Manjinder Arrieta Payer ID:[id number] Group ID:[id number] Type:Medicaid Address: [address] [place] Advance Directives Documents on File Type Date Recorded Patient Kick Boxer Expl anation Advance Directives: Medical Power of Die Cast Patternmaker 11/10/2024 Medical Power of Att orney Care Teams Slot Machine Repairer Relationship Specialty Start Date End Date Phillip Kulkarni [address] [facility] [address] [place] [address] PCP - External Referring Pediatric Hematology and Oncology 10/30/24 Karly Shelton [address] [place] [address] [place] [phone] PCP - External Primary Care Provider 10/31/24 Vilma Ross ANP [address] [place] [phone] PCP - External Follow Up A 10/31/24 Gabriel Gonzales DO [address] [place] [address] Dr Walsh [address] [place] [address] [phone] PCP - External Follow Up B Pulmonary Medicine 10/31/24
[2024-12-11 23:30] LABS: Absolute Basophils 0.1 K/uL (0-0.5); Absolute Eosinophils 1.2 K/uL (0-0.5); Absolute Lymphocytes (CBC) 6.4 K/uL (0.7-4.9); Absolute Monocytes 1.3 K/uL (0.1-1.3); Basophils % 0.6 % (0-1.3); Eosinophils % 8.2 % (0-4.4); Hematocrit 45.3 % (39.6-49.0); Hemoglobin 16.4 g/dL (13.6-17.9); MCH 32.7 pg (27.0-35.0); MCHC 36.2 g/dL (32.0-36.0); MCV 90.3 fL (80-100); MPV 7.7 fL (7.6-11.3); Monocytes % 8.5 % (3.3-12.3); Neutrophils % 39.7 % (41.7-73.7); Nucleated Red Blood Cells % 0.1 % (0-0); Platelets 489 thou/uL (152-406); RBC Red Blood Cell Count 5.02 M/uL (4.33-5.43); Red Cell Distribution Width 13.9 % (12.1-15.2)
[2024-12-11 23:48] LABS: Anion Gap 8.7 mEq/L (5.0-15.0); Magnesium 2.4 mg/dL (1.6-2.4); Potassium 3.7 mEq/L (3.5-5.1); Troponin High Sensitivity 6.3 pg/mL (<58.9)
[2024-12-11] MEDS ORDERED: KETOROLAC 30 MG/ML INJ ONE (23:53)
[2024-12-12 00:29] LABS: Band Neutrophils 2 % (0-1); Differential Total Cells Count 100; Eosinophils 5 % (0-3); Lymphocytes 22 % (15-42); Monocytes 1 % (0-10); Reactive Lymphocytes 28 %; Segmented Neutrophils 41 % (40-80)
[2024-12-12 00:30] LABS: Blood Morphology Comment NOTED (NOT SEEN); Burr Cells 1+; Platelet Estimate ADEQ
--- NOTE | 2024-12-12 00:32 | ER ---
Nurse's Notes [facility] – [place], [place] Name: Manjinder Arrieta Age: 19 yrs Sex: Male : 2005 Arrival Date: 12/11/2024 Time: 22:37 Bed 3 Private MD: Diagnosis: Chest pain, unspecified Presentation: 12/11 22:48 Chief complaint: Patient states: chest pain that feels like stabbing constant since bm8 1900 tonight. 22:48 Coronavirus screen: At this time, the client does not indicate any symptoms associated bm8 with coronavirus-19. Ebola Screen: Patient negative for fever greater than or equal to 101.5 degrees Fahrenheit, and additional compatible Ebola Virus Disease symptoms Patient denies exposure to infectious person. Patient denies travel to an Ebola-affected area in the 21 days before illness onset. No symptoms or risks identified at this time. Initial Sepsis Screen: Does the patient meet any 2 criteria? No. Patient's initial sepsis screen is negative. Does the patient have a suspected source of infection? No. Patient's initial sepsis screen is negative. Risk Assessment: Do you want to hurt yourself or someone else? Patient reports no desire to harm self or others. Onset of symptoms was December 11, 2024 at 19:00. 22:48 Method Of Arrival: Ambulatory bm8 22:48 Acuity: YESSY 2 bm8 Triage Assessment: 23:04 General: Appears in no apparent distress. comfortable, Behavior is calm, cooperative, bm8 appropriate for age. Pain: Complains of pain in anterior aspect of left upper chest Pain does not radiate. Pain currently is 10 out of 10 on a pain scale. Pain: Quality of pain is described as stabbing. EENT: No deficits noted. No signs and/or symptoms were reported regarding the EENT system. Neuro: No deficits noted. Level of Consciousness is awake, alert, obeys commands, Oriented to person, place, time, situation, Appropriate for age. Cardiovascular: No deficits noted. Heart tones S1 S2 present Capillary refill < 3 seconds in bilateral fingers Patient's skin is warm and dry. Rhythm is sinus rhythm. Respiratory: No deficits noted. Airway is patent Respiratory effort is even, unlabored, Respiratory pattern is regular, symmetrical, Breath sounds are clear bilaterally. GI: No deficits noted. No signs and/or symptoms were reported involving the gastrointestinal system. : No deficits noted. No signs and/or symptoms were reported regarding the genitourinary system. Derm: No deficits noted. No signs and/or symptoms reported regarding the dermatologic system. Musculoskeletal: No deficits noted. No signs and/or symptoms reported regarding the musculoskeletal system. Historical: - Allergies: 23:04 adhesive tape; bm8 23:04 Adhesives; bm8 23:04 Albuterol; bm8 23:04 cefixime; bm8 23:04 Clindamycin; bm8 23:04 montelukast; bm8 23:04 Cannon (Prunus Persica); bm8 23:04 PENICILLINS; bm8 23:04 Prednisone; bm8 23:04 Sulfa (Sulfonamide Antibiotics); bm8 23:04 Suprax; bm8 23:04 Vancomycin; bm8 - Home Meds: 23:04 Abilify Maintena 400 mg intramuscular suspension every month [Active]; azithromycin 200 bm8 mg/5 mL Oral Suspension for Reconstitution 12.5 mL daily [Active]; Breztri Aerosphere 160-9-4.8 mcg/actuation inhalation HFA Aerosol Inhaler 2 inhalations 2 times per day [Active]; cetirizine 5 mg Oral tablet 1 tab daily [Active]; diazepam 2 mg Oral tablet 2 times per day [Active]; EpiPen 0.3 mg/0.3 mL injection Auto-Injector as needed [Active]; fluticasone propionate 50 mcg/actuation intranasal spray 2 sprays daily [Active]; ipratropium bromide 0.02 % inhalation solution 2.5 mL every 8 hours [Active]; levalbuterol HCl 1.25 mg/3 mL inhalation Solution for Nebulization 3 times per day [Active]; levalbuterol tartrate 45 mcg/actuation inhalation HFA Aerosol Inhaler 2 inhalations every 6 hours [Active]; levetiracetam 100 mg/mL Oral solution 10 mL 2 times per day [Active]; methocarbamol 750 mg Oral tablet 1 tab 4 times per day [Active]; metoprolol succinate 50 mg Oral tablet 1 tab daily [Active]; Nayzilam 5 mg/spray (0.1 mL) intranasal spray 1 spray one spray in one nostril [Active]; Nucala 100 mg/mL subcutaneous Syringe 100 mg every 4 weeks [Active]; nystatin 100 Topical cream 1 application daily [Active]; omeprazole 20 mg Oral capsule 1 caps 2 times per day [Active]; ondansetron 8 mg Oral tablet 1 tab every 8 hours [Active]; promethazine 25 mg Oral tablet every 4 hours [Active]; Qulipta 60 mg Oral tablet 1 tab daily [Active]; Risperdal 0.5 mg Oral tablet 1 tab 2 times per day [Active]; triamcinolone acetonide 0.1 % Topical ointment 1 application [Active]; Ubrelvy 100 mg Oral tablet [Active]; - PMHx: 23:04 ADD/ADHD; Anemia; Anxiety; Asthma; Autism; bacterial meningitis; Bipolar disorder; bm8 Depression; epillepsy; hepatosplegomegaly; Migraines; Tachycardia; - PSHx: 23:04 Adenoid excision; ear tubes; eye surgery; fundiplication; loop recorder; Splenectomy; bm8 tear duct surgeries; Tonsillectomy; - Immunization history:: Adult Immunizations up to date. - Infectious Disease History:: Denies. - Social history:: Smoking status: Patient denies any tobacco usage or history of. Patient/guardian denies using alcohol, street drugs. Screenin:12 [facility] ED Fall Risk Assessment (Adult) History of falling in the last 3 months, bm8 including since admission No falls in past 3 months (0 pts) Confusion or Disorientation No (0 pts) Intoxicated or Sedated No (0 pts) Impaired Gait No (0 pts) Mobility Assist Device Used No (0 pt) Altered Elimination No (0 pt) Score/Fall Risk Level 0 - 2 = Low Risk Oriented to surroundings, Maintained a safe environment, Educated pt \T\ family on fall prevention, incl call for assistance when getting out of bed, Assessed \T\ reinforced patient's understanding of fall precautions, Hourly rounding (assess needs \T\ fall precautionary measures) done, Used ambulatory aids as needed (educated on \T\ assisted with), Used gait belt as appropriate. Abuse screen: Denies threats or abuse. Nutritional screening: No deficits noted. Tuberculosis screening: No symptoms or risk factors identified. Assessment: 23:12 Reassessment: see triage assessment. bm8 23:12 Pain: Pain began 1900 tonight. bm8 23:57 Reassessment: Patient appears in no apparent distress at this time. Patient and/or bm8 family updated on plan of care and expected duration. Pain level reassessed. Patient is alert, oriented x 3, equal unlabored respirations, skin warm/dry/pink. pt states that the pain has gotten more intense and is requesting medication. Provider informed, new orders received and carried out. 12/12 00:36 Reassessment: Patient appears in no apparent distress at this time. Patient and/or bm8 family updated on plan of care and expected duration. Pain level reassessed. Patient is alert, oriented x 3, equal unlabored respirations, skin warm/dry/pink. pt is c/o headache and side pain . provider notified, new orders issued and carried out. 00:38 Reassessment: Patient appears in no apparent distress at this time. Patient and/or bm8 family updated on plan of care and expected duration. Pain level reassessed. Patient is alert, oriented x 3, equal unlabored respirations, skin warm/dry/pink. Patient states feeling better. Patient states symptoms have improved. Vital Signs: 12/11 22:48 BP 130 / 85; Pulse 90; Resp 17; Temp 98.4; Pulse Ox 97% ; Weight 99.79 kg; Height 5 ft. bm8 9 in. ; Pain 10/10; 23:57 BP 120 / 75; Pulse 74; Resp 17; Temp 98.4; Pulse Ox 98% ; Pain 10/10; bm8 12/12 00:36 BP 139 / 84; Pulse 75; Resp 17; Temp 98.4; Pulse Ox 100% ; Pain 6/10; bm8 00:38 BP 114 / 72; Pulse 75; Resp 18; Temp 98.4; Pulse Ox 98% ; Pain 3/10; bm8 12/11 22:48 Body Mass Index 32.49 (99.79 kg, 175.26 cm) 8 12/11 22:48 Pain Scale: Adult bm8 23:57 Pain Scale: Adult bm8 12/12 00:36 Pain Scale: Adult bm8 00:38 Pain Scale: Adult bm8 Jacey Coma Score: 12/11 23:12 Eye Response: spontaneous(4). Motor Response: obeys commands(6). Verbal Response: bm8 oriented(5). Total: 15. 23:57 Eye Response: spontaneous(4). Motor Response: obeys commands(6). Verbal Response: bm8 oriented(5). Total: 15. 12/12 00:36 Eye Response: spontaneous(4). Motor Response: obeys commands(6). Verbal Response: bm8 oriented(5). Total: 15. 00:38 Eye Response: spontaneous(4). Motor Response: obeys commands(6). Verbal Response: bm8 oriented(5). Total: 15. ED Course: 12/11 22:41 Patient arrived in ED. cj3 22:48 Mimi Wellington, PAYAM is Primary Nurse. kd3 22:50 [facility]C [facility] kb 22:50 Tyler Padilla MD is Attending Physician. kb 23:04 Triage completed. bm8 23:04 Arm band placed on right wrist. bm8 23:12 Patient has correct armband on for positive identification. Bed in low position. Call bm8 light in reach. Side rails up X2. Adult w/ patient. Client placed on continuous cardiac and pulse oximetry monitoring. NIBP monitoring applied. java scala developer on. Pulse ox on. NIBP on. Door closed. Noise minimized. Warm blanket given. Pillow given. Verbal reassurance given. Head of bed elevated. 23:12 No provider procedures requiring assistance completed. Initial lab(s) drawn, by ED bm8 staff, sent to lab. EKG done, by ED staff, reviewed by Lily HERNANDEZ. 23:14 Inserted saline lock: 22 gauge in right antecubital area, using aseptic technique. bm8 Blood collected. Flushed with 10 mL NS. Patient maintains SpO2 saturation greater than 95% on room air. 23:53 XRAY Chest (1 view) In Process Unspecified. EDMS 12/12 00:38 Provided Education on: post er care. bm8 00:38 IV discontinued, intact, bleeding controlled, No redness/swelling at site. Pressure bm8 dressing applied. Administered Medications: 12/11 23:55 Drug: Ketorolac IVP 15 mg IVP once Route: IVP; Site: right antecubital; bm8 12/12 00:38 Follow up: Response: No adverse reaction bm8 Medication: 12/11 23:12 VIS not applicable for this client. bm8 Outcome: 12/12 00:31 Discharge ordered by . linh 00:38 Discharged to home ambulatory, with family, bm8 00:38 Condition: stable 00:38 Discharge instructions given to patient, family, Instructed on discharge instructions, follow up and referral plans. no drinking with medication, no driving heavy equipment, medication usage, safety practices, Demonstrated understanding of instructions, follow-up care, medications, 00:54 Patient left the ED. bm8 Signatures: Dispatcher [employer] EDW[facility] Lily Riley, ARLIN-C ARLIN-Mimi Nur, RN RN kd3 Brian Angeles, RN RN bm8 Alvina Cordova cj3
--- NOTE | 2024-12-12 00:32 | EDPHYS ---
Physician Documentation [facility] Name: Manjinder Arrieta Age: 19 yrs Sex: Male : 2005 Arrival Date: 12/11/2024 Time: 22:37 Bed 3 Private MD: ED Physician Tyler Padilla HPI: 12/11 23:19 This 19 yrs old Male presents to ER via Ambulatory with complaints of Chest Pain. kb 23:19 Patient is a 19-year-old male who presents for left-sided chest pain that started at kb 7:30 PM. Denies any other symptoms.. Historical: - Allergies: 23:04 adhesive tape; bm8 23:04 Adhesives; bm8 23:04 Albuterol; bm8 23:04 cefixime; bm8 23:04 Clindamycin; bm8 23:04 montelukast; bm8 23:04 [place] (Prunus Persica); bm8 23:04 PENICILLINS; bm8 23:04 Prednisone; bm8 23:04 Sulfa (Sulfonamide Antibiotics); bm8 23:04 Suprax; bm8 23:04 Vancomycin; bm8 - Home Meds: 23:04 Abilify Maintena 400 mg intramuscular suspension every month [Active]; azithromycin 200 bm8 mg/5 mL Oral Suspension for Reconstitution 12.5 mL daily [Active]; Breztri Aerosphere 160-9-4.8 mcg/actuation inhalation HFA Aerosol Inhaler 2 inhalations 2 times per day [Active]; cetirizine 5 mg Oral tablet 1 tab daily [Active]; diazepam 2 mg Oral tablet 2 times per day [Active]; EpiPen 0.3 mg/0.3 mL injection Auto-Injector as needed [Active]; fluticasone propionate 50 mcg/actuation intranasal spray 2 sprays daily [Active]; ipratropium bromide 0.02 % inhalation solution 2.5 mL every 8 hours [Active]; levalbuterol HCl 1.25 mg/3 mL inhalation Solution for Nebulization 3 times per day [Active]; levalbuterol tartrate 45 mcg/actuation inhalation HFA Aerosol Inhaler 2 inhalations every 6 hours [Active]; levetiracetam 100 mg/mL Oral solution 10 mL 2 times per day [Active]; methocarbamol 750 mg Oral tablet 1 tab 4 times per day [Active]; metoprolol succinate 50 mg Oral tablet 1 tab daily [Active]; Nayzilam 5 mg/spray (0.1 mL) intranasal spray 1 spray one spray in one nostril [Active]; Nucala 100 mg/mL subcutaneous Syringe 100 mg every 4 weeks [Active]; nystatin 100 Topical cream 1 application daily [Active]; omeprazole 20 mg Oral capsule 1 caps 2 times per day [Active]; ondansetron 8 mg Oral tablet 1 tab every 8 hours [Active]; promethazine 25 mg Oral tablet every 4 hours [Active]; Qulipta 60 mg Oral tablet 1 tab daily [Active]; Risperdal 0.5 mg Oral tablet 1 tab 2 times per day [Active]; triamcinolone acetonide 0.1 % Topical ointment 1 application [Active]; Ubrelvy 100 mg Oral tablet [Active]; - PMHx: 23:04 ADD/ADHD; Anemia; Anxiety; Asthma; Autism; bacterial meningitis; Bipolar disorder; bm8 Depression; epillepsy; hepatosplegomegaly; Migraines; Tachycardia; - PSHx: 23:04 Adenoid excision; ear tubes; eye surgery; fundiplication; loop recorder; Splenectomy; bm8 tear duct surgeries; Tonsillectomy; - Immunization history:: Adult Immunizations up to date. - Infectious Disease History:: Denies. - Social history:: Smoking status: Patient denies any tobacco usage or history of. Patient/guardian denies using alcohol, street drugs. ROS: 23:18 Constitutional: As per HPI kb Exam: 23:14 Constitutional: This is a well developed, well nourished patient who is awake, alert, kb and in no acute distress. Head/Face: Normocephalic, atraumatic. ENT: Moist Mucous membranes Cardiovascular: Regular rate Respiratory: Respirations even and unlabored. No increased work of breathing. Talking in full sentences Skin: Warm, dry with normal turgor. Normal color. MS/ Extremity: Pulses equal, no cyanosis. Neurovascular intact. Full, normal range of motion. Neuro: Awake and alert, GCS 15, oriented to person, place, time, and situation. 23:14 ECG was reviewed by the Attending Physician. Vital Signs: 22:48 BP 130 / 85; Pulse 90; Resp 17; Temp 98.4; Pulse Ox 97% ; Weight 99.79 kg; Height 5 ft. bm8 9 in. ; Pain 10/; 23:57 BP 120 / 75; Pulse 74; Resp 17; Temp 98.4; Pulse Ox 98% ; Pain 10/10; bm8 12/12 00:36 BP 139 / 84; Pulse 75; Resp 17; Temp 98.4; Pulse Ox 100% ; Pain 6/10; bm8 00:38 BP 114 / 72; Pulse 75; Resp 18; Temp 98.4; Pulse Ox 98% ; Pain 3/10; bm8 12/11 22:48 Body Mass Index 32.49 (99.79 kg, 175.26 cm) 8 12/11 22:48 Pain Scale: Adult bm8 23:57 Pain Scale: Adult bm8 12/12 00:36 Pain Scale: Adult bm8 00:38 Pain Scale: Adult bm8 Maybee Coma Score: 12/11 23:12 Eye Response: spontaneous(4). Motor Response: obeys commands(6). Verbal Response: bm8 oriented(5). Total: 15. 23:57 Eye Response: spontaneous(4). Motor Response: obeys commands(6). Verbal Response: bm8 oriented(5). Total: 15. 12/12 00:36 Eye Response: spontaneous(4). Motor Response: obeys commands(6). Verbal Response: bm8 oriented(5). Total: 15. 00:38 Eye Response: spontaneous(4). Motor Response: obeys commands(6). Verbal Response: bm8 oriented(5). Total: 15. MDM: 12/11 22:50 Medical Screening Exam initiated kb 23:18 Differential diagnosis: arrhythmia, acute mi. Data reviewed: vital signs, nurses notes. kb 23:19 Historians other than the Patient: Parent: father. kb 12/12 00:31 Counseling: I had a detailed discussion with the patient and/or guardian regarding the kb historical points, exam findings, and any diagnostic results supporting the discharge/admit diagnosis, lab results, radiology results, the need for outpatient follow up, a family practitioner, to return to the emergency department if symptoms worsen or persist or if there are any questions or concerns that arise at home. 12/11 22:54 Order name: Basic Metabolic Panel; Complete Time: 23:50 kb 12/11 22:54 Order name: CBC with Diff; Complete Time: 00:30 kb 12/11 22:54 Order name: Magnesium; Complete Time: 23:50 kb 12/11 22:54 Order name: Troponin HS; Complete Time: 23:50 kb 12/11 23:41 Order name: Manual Differential; Complete Time: 00:30 EDMS 12/11 22:54 Order name: XRAY Chest (1 view) kb 12/11 22:54 Order name: EKG; Complete Time: 22:54 kb 12/11 22:54 Order name: Cardiac monitoring; Complete Time: 23:04 kb 12/11 22:54 Order name: EKG - Nurse/Tech; Complete Time: 23:04 kb 12/11 22:54 Order name: IV Saline Lock; Complete Time: 23:04 kb 12/11 22:54 Order name: Labs collected and sent; Complete Time: 23:04 kb 12/11 22:54 Order name: O2 Per Protocol; Complete Time: 23:04 kb 12/11 22:54 Order name: O2 Sat Monitoring; Complete Time: 23:04 kb 12/11 23:14 Order name: IV Start; Complete Time: 23:14 bm8 EC/26 23:14 Rate is 76 beats/min. Rhythm is regular. QRS [place] is Normal. CO interval is normal at kb 190 msec. QRS interval is normal at 80 msec. QT interval is normal at 389 msec. Administered Medications: 23:55 Drug: Ketorolac IVP 15 mg IVP once Route: IVP; Site: right antecubital; bm8 12/12 00:38 Follow up: Response: No adverse reaction bm8 Disposition: 19:11 Co-signature as Attending Physician, Tyler Padilla MD I agree with the assessment sp4 and plan of care. I reviewed the patient's care provided by the Advanced Practice Provider and agree with the diagnosis and treatment plan. Disposition Summary: 12/12/24 00:31 Discharge Ordered Notes: Location: Home kb Condition: Stable kb Diagnosis - Chest pain, unspecified kb Followup: kb - With: Emergency Department - When: As needed - Reason: Worsening of condition Followup: kb - With: Private Physician - When: 2 - 3 days - Reason: Recheck today's complaints, Continuance of care, Re-evaluation by your physician Discharge Instructions: - Discharge Summary Sheet kb - Nonspecific Chest Pain, Adult, [id number] kb Forms: - Medication Reconciliation Form kb - Antibiotic Education kb - Prescription Opioid Use kb - Patient Portal Instructions kb - Leadership Thank You Letter kb Signatures: Dispatcher [employer] Lily Burrows, ARLIN-C FORGE TENDER-Tyler Mckeon MD MD sp4 Brian Angeles RN RN bm8
[2024-12-12 01:05] VITALS: TEMP 98.4
[2024-12-12 01:10] VITALS: BP 114/72; O2SAT 98
--- NOTE | 2024-12-12 05:54 | RAD REPORT ---
EXAM: XR Chest, 1 View CLINICAL HISTORY: The patient is 19 years old and is Male; CHEST PAIN TECHNIQUE: Frontal view of the chest. COMPARISON: No relevant prior studies available. FINDINGS: Lungs: Unremarkable. No consolidation. Pleural space: Unremarkable. No pneumothorax. Heart: Unremarkable. Mediastinum: Unremarkable. Normal mediastinal contour. Bones/joints: No acute findings. IMPRESSION: No acute findings in the chest. Electronically signed by: Sarbjit Edmonds MD 12/12/2024 12:27 AM CDT 8 Due to temporary technical issues with the PACS/Oja.la reporting system, reports are being guy d by the in-house radiologist without review as a courtesy to ensure prompt reporting the interpreting radiologist is fully responsible for the content of the report. Transcribed Date/Time: 12/12/2024 5:54 AM
--- NOTE | 2024-12-12 12:18 | EKG ---
Test Date: 2024-12-11 Test Time: 23:01:52 Forge Tender: NANCY MEASUREMENT RESULTS: Intervals: Rate: 76 CO: 190 QRSD: 80 QT: 346 QTc: 389 [place]: P: 38 CO: 190 QRS: 67 T: 59 INTERPRETIVE STATEMENTS: Normal sinus rhythm Early repolarization Normal ECG Compared to ECG 12/18/2023 22:38:51 Early repolarization now present Sinus tachycardia no longer present ST (T wave) deviation no longer present Electronically Signed On 12-12-24 12:16:40 CDT by Chan Nayak
== END 2024-12-12 00:54 | disposition home or self-care (01) ==
LOC: ER 22:37
DX: R07.9 Chest pain, unspecified (principal); F41.9 Anxiety disorder, unspecified; F84.0 Autistic disorder
CPT/HCPCS: 36415; 71045; 80048; 83735; 84484; 85025; 93005; 96374; 99285